=== PATIENT | female | born 1950 | race Hispanic/Latino ===

== ENCOUNTER 2018-08-15 16:29 | Inpatient (IN) | payer MEDICARE ==
[2018-08-15] MEDS ORDERED: ZEMURON IV ONE ×2 (17:19→17:20)
[2018-08-15] MEDS ORDERED: AMIDATE IV ONE ×2 (17:20)
[2018-08-15] MEDS ORDERED: NACL 0.9% 1000 ML 1,000 ML ONE ×2 (17:25→21:28)
[2018-08-15] MEDS ORDERED: NACL 0.9% 1000 ML IV ONE (18:12)
[2018-08-15 18:14] LABS: Hematocrit 30.9 % (30.3-42.9); Hemoglobin 10.3 gm/dl (10.1-14.3); Mean Corpuscular HGB Conc 33 % (30-34); Mean Corpuscular Volume 95 fl (79-97); Platelet Count 245 K/mm3 (140-440); Red Blood Count 3.25 M/mm3 (3.65-5.03); Red Cell Distribution Width 14.7 % (13.2-15.2)
--- NOTE | 2018-08-15 18:20 | Emergency Department Report ---
ED Altered Mental Status HPI - General Chief Complaint: Altered Mental Status Stated Complaint: ALTERED MENTAL STATUS Time Seen by Provider: 08/15/18 18:12 Source: EMS Mode of arrival: Stretcher Limitations: Altered Mental Status - History of Present Illness Initial Comments: Patient is 68 years old female with history of COPD, arthritis with multiple s urgeries including cervical spine and lumbar spine. Patient followed by pain medicine clinic. Patient brought to the emergency room via EMS after patient found to be with altered mental status and decreased responsiveness by her . Patient is not communicating so most of the history is from the . EMS stated that patient found to have an oxygen saturation of 72% and brought to the emergency room with a nonrebreather with an O2 sat of 91%. Patient is tachypneic with a respiratory rate of 48. Decision to intubate the patient was made. Patient intubated by me. Patient found to have a blood pressure of 87/41. The right internal jugular vein central line placed by me for fluid resuscitation. Patient stated that patient was complaining of nausea, vomiting and diarrhea for the last 5 days. Patient on multiple pain medications. Patient stated that patient had endoscopy and colonoscopy 7 days ago for possible GI bleed. He stated that she was told that her result was negative for acute finding. Patient stated that patient never complained of any chest pain or shortness of breath. MD Complaint: altered mental status, decreased responsiveness Severity: severe Consistency of Symptoms: getting worse - Related Data Allergies Allergy/AdvReac Type Severity Reaction Status Date / Time No Known Allergies Allergy Unverified 08/15/18 16:49 ED Review of Systems ROS: Stated complaint: ALTERED MENTAL STATUS Other details as noted in HPI Comment: Unobtainable due to pts medical conditions ED Past Medical Hx - Past Medical History Hx Hypertension: Yes Additional medical history: back and abd surgeries - Social History Smoking Status: Unknown if ever smoked ED Physical Exam - General Limitations: Altered Mental Status General appearance: obtunded, in distress, other (CV respiratory distress, tachypneic.) - Head Head exam: Present: atraumatic, normocephalic - Eye Eye exam: Present: normal appearance, PERRL - ENT ENT exam: Present: mucous membranes dry - Neck Neck exam: Present: normal inspection. Absent: tenderness, meningismus - Respiratory Respiratory exam: Present: respiratory distress, rales, rhonchi, decreased breath sounds, prolonged expiratory. Absent: stridor - Cardiovascular Cardiovascular Exam: Present: tachycardia - GI/Abdominal GI/Abdominal exam: Present: soft, normal bowel sounds. Absent: distended - Extremities Exam Extremities exam: Present: normal inspection, full ROM, normal capillary refill - Back Exam Back exam: Present: normal inspection - Neurological Exam Neurological exam: Present: altered - Skin Skin exam: Present: dry - Assessment Assessment Interval: Baseline - Level of Consciousness 1a. Level of Consciousness: resp stimuli/obtunded - LOC Questions 1b. LOC Questions: answers no questions correctly - LOC Command 1c. LOC Commands: performs no tasks correctly - Best Gaze 2. Best Gaze: normal - Visual 3. Visual: no visual loss - Facial Palsy 4. Facial Palsy: normal symmetrical movement - Motor Arm 5a. Motor Arm Left: no drift 5b. Motor Arm Right: no drift - Motor Leg 6a. Motor Leg Left: no drift 6b. Motor Leg Right: no drift - Limb Ataxia 7. Limb Ataxia: absent - Sensory 8. Sensory: no response/quadraplegic - Best Language 9. Best Language: coma/unresponsive - Dysarthria 10. Dysarthria: mute/anarrthric - Extinction and Inattention 11. Extinction/Inattention: no abnormality - Scoring Total Score: 13 Stroke Severity: Moderate Stroke ED Course Vital Signs 08/15/18 17:38 Pulse Rate 102 H Blood Pressure 134/62 O2 Sat by Pulse 98 Oximetry - Reevaluation(s) Reevaluation #1: 08/15/18 19:05 Patient evaluated by me multiple times. Patient is resting well on ventilation with stable vital signs. - Central Line Placement Right IJ Consent Obtained: emergent situation Time Out Performed: Yes Patient Placed on Monitor/Pulse Ox: Yes MD Prep: mask, gown, gloves Central Line Prep: Povidone-Iodine 1%, Chlorhexidine scrub, sterile drapes appli ed Local Anesthesia Used: Lidocaine 2% Ultrasound Used for Placement: Yes Central Line Lumen Inserted: triple Bloods Obtained for Lab: Yes Central Line Position: good blood return, sutured in place with 2-0 Dressing Applied: Tegaderm Post Procedure X-Ray: tip of catheter in good p Patient Tolerated Procedure: well, no complications Complications: none - Intubation Time Out Performed: Yes Sedative: Etomidate Paralytic: Vecuronium Laryngoscope: Ta Size: 4 ET Tube Size: 7.5 Tube Secured Location: teeth Tube Placement Confirmation: visualized tube passing t, equal breath sounds bilat, no breath sounds over epi, confirmation by capnometr Patient Tolerated Procedure: well, no complications Intubation Complications: none - Lab Data Result diagrams: 08/15/18 17:52 18 17:52 Lab Results 08/15/18 08/15/18 08/15/18 Range/Units 17:52 17:52 17:52 WBC 12.7 H (4.5-11.0) K/mm3 RBC 3.25 L (3.65-5.03) M/mm3 Hgb 10.3 (10.1-14.3) gm/dl Hct 30.9 (30.3-42.9) % MCV 95 (79-97) fl MCH 32 (28-32) pg MCHC 33 (30-34) % RDW 14.7 (13.2-15.2) % Plt Count 245 (140-440) K/mm3 Add Manual Diff Complete Total Counted 100 Seg Neuts % (Manual) 54.0 (40.0-70.0) % Band Neutrophils % 35.0 % Lymphocytes % (Manual) 6.0 L (13.4-35.0) % Reactive Lymphs % (Man) 0 % Monocytes % (Manual) 5.0 (0.0-7.3) % Eosinophils % (Manual) 0 (0.0-4.3) % Basophils % (Manual) 0 (0.0-1.8) % Metamyelocytes % 0 % Myelocytes % 0 % Promyelocytes % 0 % Blast Cells % 0 % Nucleated RBC % Not Reportable Seg Neutrophils # Man 6.9 (1.8-7.7) K/mm3 Band Neutrophils # 4.4 K/mm3 Lymphocytes # (Manual) 0.8 L (1.2-5.4) K/mm3 Abs React Lymphs (Man) 0.0 K/mm3 Monocytes # (Manual) 0.6 (0.0-0.8) K/mm3 Eosinophils # (Manual) 0.0 (0.0-0.4) K/mm3 Basophils # (Manual) 0.0 (0.0-0.1) K/mm3 Metamyelocytes # 0.0 K/mm3 Myelocytes # 0.0 K/mm3 Promyelocytes # 0.0 K/mm3 Blast Cells # 0.0 K/mm3 WBC Morphology Not Reportable Hypersegmented Neuts Not Reportable Hyposegmented Neuts Not Reportable Hypogranular Neuts Not Reportable Smudge Cells Not Reportable Toxic Granulation Not Reportable Toxic Vacuolation Not Reportable Dohle Bodies Not Reportable Pelger-Huet Anomaly Not Reportable Rosy Rods Not Reportable Platelet Estimate Appears normal Clumped Platelets Not Reportable Plt Clumps, EDTA Not Reportable Large Platelets Not Reportable Giant Platelets Not Reportable Platelet Satelliting Not Reportable Plt Morphology Comment Not Reportable RBC Morphology Not Reportable Dimorphic RBCs Not Reportable Polychromasia Not Reportable Hypochromasia Not Reportable Poikilocytosis Not Reportable Anisocytosis Not Reportable Microcytosis Not Reportable Macrocytosis Not Reportable Spherocytes Not Reportable Pappenheimer Bodies Not Reportable Sickle Cells Not Reportable Target Cells Not Reportable Tear Drop Cells Not Reportable Ovalocytes Few Helmet Cells Not Reportable Hernandez-Mayo Bodies Not Reportable Alton Rings Not Reportable Bertha Cells Not Reportable Bite Cells Not Reportable Crenated Cell Not Reportable Elliptocytes Not Reportable Acanthocytes (Spur) Not Reportable Rouleaux Not Reportable Hemoglobin C Crystals Not Reportable Schistocytes Not Reportable Malaria parasites Not Reportable Ceasar Bodies Not Reportable Hem Pathologist Commnt No POC ABG pH (7.35-7.45) POC ABG pCO2 (35-45) POC ABG pO2 (80-105) POC ABG HCO3 (22-26 mml/L) POC ABG Total CO2 (23-27mmol/L) POC ABG O2 Sat POC ABG Base Excess ((-2) - (+3)mmol/L) FiO2 % Sodium 137 (137-145) mmol/L Potassium 3.4 L (3.6-5.0) mmol/L Chloride 94.6 L (98-107) mmol/L Carbon Dioxide 17 L (22-30) mmol/L Anion Gap 29 mmol/L BUN 67 H (7-17) mg/dL Creatinine 3.5 H (0.7-1.2) mg/dL Estimated GFR 13 ml/min BUN/Creatinine Ratio 19 % Glucose 131 H (65-100) mg/dL Lactic Acid 5.20 H* (0.7-2.0) mmol/L Calcium 7.6 L (8.4-10.2) mg/dL Total Bilirubin 0.60 (0.1-1.2) mg/dL AST 887 H (5-40) units/L ALT 316 H (7-56) units/L Alkaline Phosphatase 102 (35-129) units/L Total Protein 6.4 (6.3-8.2) g/dL Albumin 3.1 L (3.9-5) g/dL Albumin/Globulin Ratio 0.9 % 08/15/18 Range/Units 18:11 WBC (4.5-11.0) K/mm3 RBC (3.65-5.03) M/mm3 Hgb (10.1-14.3) gm/dl Hct (30.3-42.9) % MCV (79-97) fl MCH (28-32) pg MCHC (30-34) % RDW (13.2-15.2) % Plt Count (140-440) K/mm3 Add Manual Diff Total Counted Seg Neuts % (Manual) (40.0-70.0) % Band Neutrophils % % Lymphocytes % (Manual) (13.4-35.0) % Reactive Lymphs % (Man) % Monocytes % (Manual) (0.0-7.3) % Eosinophils % (Manual) (0.0-4.3) % Basophils % (Manual) (0.0-1.8) % Metamyelocytes % % Myelocytes % % Promyelocytes % % Blast Cells % % Nucleated RBC % Seg Neutrophils # Man (1.8-7.7) K/mm3 Band Neutrophils # K/mm3 Lymphocytes # (Manual) (1.2-5.4) K/mm3 Abs React Lymphs (Man) K/mm3 Monocytes # (Manual) (0.0-0.8) K/mm3 Eosinophils # (Manual) (0.0-0.4) K/mm3 Basophils # (Manual) (0.0-0.1) K/mm3 Metamyelocytes # K/mm3 Myelocytes # K/mm3 Promyelocytes # K/mm3 Blast Cells # K/mm3 WBC Morphology Hypersegmented Neuts Hyposegmented Neuts Hypogranular Neuts Smudge Cells Toxic Granulation Toxic Vacuolation Dohle Bodies Pelger-Huet Anomaly Rosy Rods Platelet Estimate Clumped Platelets Plt Clumps, EDTA Large Platelets Giant Platelets Platelet Satelliting Plt Morphology Comment RBC Morphology Dimorphic RBCs Polychromasia Hypochromasia Poikilocytosis Anisocytosis Microcytosis Macrocytosis Spherocytes Pappenheimer Bodies Sickle Cells Target Cells Tear Drop Cells Ovalocytes Helmet Cells Hernandez-Mayo Bodies Alton Rings Bertha Cells Bite Cells Crenated Cell Elliptocytes Acanthocytes (Spur) Rouleaux Hemoglobin C Crystals Schistocytes Malaria parasites Ceasar Bodies Hem Pathologist Commnt POC ABG pH 7.173 L (7.35-7.45) POC ABG pCO2 47.8 H (35-45) POC ABG pO2 177 H (80-105) POC ABG HCO3 17.6 (22-26 mml/L) POC ABG Total CO2 19 (23-27mmol/L) POC ABG O2 Sat 99 POC ABG Base Excess -11 ((-2) - (+3)mmol/L) FiO2 100 % Sodium (137-145) mmol/L Potassium (3.6-5.0) mmol/L Chloride (98-107) mmol/L Carbon Dioxide (22-30) mmol/L Anion Gap mmol/L BUN (7-17) mg/dL Creatinine (0.7-1.2) mg/dL Estimated GFR ml/min BUN/Creatinine Ratio % Glucose (65-100) mg/dL Lactic Acid (0.7-2.0) mmol/L Calcium (8.4-10.2) mg/dL Total Bilirubin (0.1-1.2) mg/dL AST (5-40) units/L ALT (7-56) units/L Alkaline Phosphatase (35-129) units/L Total Protein (6.3-8.2) g/dL Albumin (3.9-5) g/dL Albumin/Globulin Ratio % - EKG Data -: EKG Interpreted by Me - Medical Decision Making Patient is 68 years old female with history of COPD, arthritis with multiple surgeries including cervical spine and lumbar spine. Patient followed by pain medicine clinic. Patient brought to the emergency room via EMS after patient found to be with altered mental status and decreased responsiveness by her . Patient is not communicating so most of the history is from the . EMS stated that patient found to have an oxygen saturation of 72% and brought to the emergency room with a nonrebreather with an O2 sat of 91%. Patient is tachypneic with a respiratory rate of 48. Decision to intubate the patient was made. Patient intubated by me. Patient found to have a blood pressure of 87/41. The right internal jugular vein central line placed by me for fluid resuscitation. Patient stated that patient was complaining of nausea, vomiting and diarrhea for the last 5 days. Patient on multiple pain m edications. Patient stated that patient had endoscopy and colonoscopy 7 days ago for possible GI bleed. He stated that she was told that her result was negative for acute finding. Patient stated that patient never complained of any chest pain or shortness of breath. Patient found to be in acute renal failure most likely due to dehydration from vomiting and diarrhea. He should also found to have an elevated liver enzymes. Chest x-ray showed possible bilateral infiltrates. I discussed the patient is Dr. Davis, he agreed to admit the patient to critical care units. Critical Care Time: Yes Critical care time in (mins) excluding proc time.: 45 Critical care attestation.: If time is entered above; I have spent that time in minutes in the direct care of this critically ill patient, excluding procedure time. ED Disposition Clinical Impression: Altered mental status, Sepsis, Acute renal failure, Elevated liver enzymes, Acute respiratory failure, Pneumonia Disposition: [id number] OP ADMIT IP TO THIS HOSP Is pt being admited?: Yes Condition: Stable Instructions: Bacterial Pneumonia (ED) Referrals: PRIMARY CARE, [Primary Care Provider] - 3-5 Days
[2018-08-15 18:26] LABS: Albumin 3.1 g/dL (3.9-5); Calcium 7.6 mg/dL (8.4-10.2)
[2018-08-15 19:09] LABS: Band Neutrophils # (Manual) 4.4 K/mm3; Basophils % (Manual) 0 % (0.0-1.8); Eosinophils % (Manual) 0 % (0.0-4.3); Ovalocytes Few; Total Cells Counted 100
[2018-08-15] MEDS ORDERED: ZOSYN/NS 3.375GM/50ML 3.375 GM/50 ML BAG IV ONE (19:30)
[2018-08-15 19:54] LABS: Chol/HDL Ratio 8.7 %
[2018-08-15 19:59] LABS: Amphetamine Screen,Urine PRESUMPTIVE NEGATIVE; Benzodiazepines Screen,Urine PRESUMPTIVE NEGATIVE; Cannabinoid Screen,Urine PRESUMPTIVE NEGATIVE; Cocaine Screen,Urine PRESUMPTIVE NEGATIVE; Methadone Screen,Urine PRESUMPTIVE NEGATIVE
[2018-08-15 20:00] LABS: Amorphous Crystals,Urine 1+; Bilirubin,Urine NEG (Negative); Blood,Urine MOD (Negative); Color,Urine Amber (Yellow); Granular Casts,Urine 14 /LPF; Hyaline Casts,Urine 54 /LPF; Mucus,Urine FEW /HPF
[2018-08-15 20:11] LABS: Opiate Screen,Urine PRESUMPTIVE POSITIVE
--- NOTE | 2018-08-15 20:25 | XRay Report ---
PROCEDURE: PORTABLE CHEST TECHNIQUE: A portable AP chest radiograph was obtained at 08/15/2018 23:04 [employer] AR[employer]IST. CPT 56977 HISTORY: Right IJ catheter placement COMPARISONS: None. FINDINGS: Heart: Normal. Mediastinum/Vessels: Normal. Lungs/Pleural space: Throughout the right lung there are diffuse reticular markings and patchy airsp omero opacities, which could be related to acute and/or chronic pulmonary disease. No effusion or pneum othorax is seen. Bony thorax: No acute osseous abnormality. Life support devices: The endotracheal tube tip projects 4.4 cm superior to amando. The IJ catheter t ip is at the cavoatrial junction. IMPRESSION: Right internal jugular catheter tip is at the cavoatrial junction. Endotracheal tube tip projects 4.4 cm superior to the amando Throughout the right lung there are diffuse reticular markings and patchy airspace opacities, of unce rtain chronicity. This document is electronically signed by Demi Miles MD., August 15 2018 08:23:17 PM ET
[2018-08-15] MEDS: DIPRIVAN 10 MG/ML 1,000 MG/100 ML BOTTLE IV SCH (21:20)
[2018-08-15] MEDS ORDERED: DIPRIVAN 10 MG/ML 1,000 MG/100 ML BOTTLE IV ONE (21:24)
[2018-08-15] MEDS ORDERED: VERSED IV PRN (21:55)
[2018-08-15] MEDS ORDERED: VASELINE LIP THERAPY TP PRN (21:55)
[2018-08-15] MEDS ORDERED: MIDAZOLAM 100 MG in NACL 0.9% 80 ML IV SCH (22:00)
[2018-08-15] MEDS ORDERED: SUBLIMAZE ONE (22:06)
[2018-08-15] MEDS ORDERED: VERSED IV ONE (22:06)
[2018-08-15] MEDS ORDERED: DILAUDID IV PRN (22:12)
[2018-08-15] MEDS ORDERED: REGLAN IV PRN ×2 (22:12→22:50)
--- NOTE | 2018-08-15 22:12 | Event Note ---
Date: 08/15/18 See dictated history and physical in the reports Severe dehydration Acute encephalopathy Acute kidney injury Intubated for airway protection
[2018-08-15] MEDS ORDERED: NON-FORMULARY (Carvedilol 6.25 MG) PO SCH (22:15)
[2018-08-15] MEDS: SUBLIMAZE IV PRN (22:42)
[2018-08-15] MEDS: COREG PO SCH (22:45)
[2018-08-15] MEDS ORDERED: PEPCID IV SCH (23:00)
[2018-08-15] MEDS ORDERED: D5NS 1,000 ML IV SCH (23:00)
[2018-08-15] MEDS ORDERED: fentaNYL DRIP Premix 2,000 MCG/100 ML BAG IV ONE (23:13)
--- NOTE | 2018-08-16 01:14 | Cat Scan Report ---
PROCEDURE: CT HEAD/BRAIN WO CON TECHNIQUE: Computerized tomography of the head was performed without contrast material. CT DOSE LENGTH ND HISTORY: AMS COMPARISONS: None . FINDINGS: Brain: There is no evidence of intracranial hemorrhage. No parenchymal hemorrhage is seen. No mass lesions or mass effect is identified. No abnormal extra-axial fluid collections or masses are seen. There is some decreased density seen in the periventricular white matter without mass effect. This i s fairly symmetric and does not exhibit any mass effect consistent with gliosis probably on the basis of microvascular disease or white matter changes of aging. Ventricles: The ventricles, sulcal pattern and fissures are prominent consistent with atrophy. Bone Windows: No evidence of fracture. Paranasal sinuses: There is a large air-fluid level in the right maxillary sinus suggesting acute sin usitis. Patchy mucosal disease seen in several of the ethmoid air cells. Mastoid air cells: Clear. Oral gastric tube partially visualized. IMPRESSION: There is evidence of mild atrophy. No acute intracranial abnormalities are seen. Paranasal sinus disease as described. Large air-fluid level in the right maxillary sinus suggests acu te sinusitis. Oral gastric tube partially visualized. . This document is electronically signed by Moy Begum MD., August 16 2018 01:12:02 AM ET
[2018-08-16] MEDS: PEPCID IV SCH ×2 (04:58→10:15)
[2018-08-16 05:50] LABS: Hematocrit 28.7 % (30.3-42.9); Hemoglobin 9.8 gm/dl (10.1-14.3); Mean Corpuscular HGB Conc 34 % (30-34); Mean Corpuscular Volume 94 fl (79-97); Platelet Count 209 K/mm3 (140-440); Red Blood Count 3.07 M/mm3 (3.65-5.03); Red Cell Distribution Width 14.8 % (13.2-15.2)
[2018-08-16 06:14] LABS: Albumin 2.8 g/dL (3.9-5); Calcium 7.8 mg/dL (8.4-10.2)
--- NOTE | 2018-08-16 06:52 | XRay Report ---
PROCEDURE: XR CHEST 1V AP TECHNIQUE: A portable upright view the chest was obtained. HISTORY: OG tube COMPARISONS: 08/15/2018 FINDINGS: There has been interval placement of an NG tube with the tip in the mid stomach. The right-sided inte rnal jugular line appears in good position in the SVC. The tip of the ET tube is 4 cm above the madhuri a. The heart is mildly enlarged. There is stable diffuse of traits throughout the right lung. The left l sloedad is clear. The bones and soft tissues are unchanged. IMPRESSION: Satisfactory placement of NG tube since the prior study. Stable extensive infiltrates throughout the right lung compatible with pneumonia. Satisfactory position of the ET tube and right internal jugular line.. This document is electronically signed by Yannick Rodriguez MD., August 16 2018 06:50:31 AM ET
[2018-08-16] MEDS ORDERED: VANCOMYCIN 1,500 MG in NACL 0.9% 500 ML 500 ML IV ONE (07:00)
[2018-08-16] MEDS ORDERED: VANCOMYCIN PHARMACY TO DOSE IV SCH (07:00)
--- NOTE | 2018-08-16 07:16 | History and Physical Report ---
CHIEF COMPLAINT: Altered mental status and lethargy when the family arrived at home. HISTORY OF PRESENT ILLNESS: A 68-year-old female with history of COPD, arthritis, and C-spine surgery and lumbar spine surgery with severe chronic pain, was found to be in feces. The patient was apparently vomiting and having diarrhea. The family was away in [place] for a golf tournament. EMS was called and the O2 sats were about 72% and the patient was put on a nonrebreather. Respiratory rate was 48. Because of the severe respiratory distress, the patient was intubated in the Emergency Room by the ER physician. Blood pressure was 87/42. Central line was placed. The patient was intubated. The patient has been having nausea, vomiting, and diarrhea for 5 days. The patient on multiple pain medications including morphine 60 and oxycodone. The patient apparently had upper endoscopy and colonoscopy 7 days ago for possible GI bleed. There are no acute findings. PAST MEDICAL HISTORY: As mentioned, significant for peripheral neuropathy, chronic pain, hyperlipidemia, hypertension, and depression. Muscle spasms. PAST SURGICAL HISTORY: C-spine surgery and lumbar spine surgery. FAMILY HISTORY: Hypertension. SOCIAL HISTORY: Does not smoke or alcohol. REVIEW OF SYSTEMS: Significant for vomiting and diarrhea for 5 days, decreased responsiveness. Respiratory distress. No fever or chills. No recent travel. Otherwise, the review of systems negative. The patient with decreased responsiveness. 14-point review of systems done. PHYSICAL EXAMINATION: GENERAL: Elderly female, intubated. VITAL SIGNS: Blood pressure is 126/43, temperature is 98, pulse is 102. Repeat blood pressure was 134/62. Respiratory rate was 18. HEENT: The patient's ET tube in place. Pupils equal and reactive. Unresponsive. The patient on sedation. NECK: Supple, no lymphadenopathy, no thyromegaly. LUNGS: Clear to auscultation and percussion. Good air entry. CARDIOVASCULAR SYSTEM: S1, S2 heard. No gallop, no murmur, no rub. Apical impulse in left fifth intercostal space in midclavicular line. ABDOMEN: Soft and benign. No hepatosplenomegaly. No guarding, no rigidity. Hernial orifices are normal. EXTREMITIES: Good pedal pulses. No pedal edema. CENTRAL NERVOUS SYSTEM: Alert and oriented x 4, nonfocal exam. SKIN: Normal. LABORATORY DATA: Significant for white count of 12,700, H and H of 10.3 and 30.9, platelet count of 245,000. ABG significant for pH of 7.17, pCO2 of 47.8, pO2 of 177. Sodium is 137. Potassium is 3.4. Chloride is 94.6. BUN and creatinine 67 and 3.5. Lactic acid is 2.7. AST is 887. ALT is 316. Troponin is 0.454. Albumin is 3.1. Triglyceride 356. Urine shows 17 WBCs. Drug screen was negative. DIAGNOSTIC DATA: Head CT and chest x-ray were reviewed. A chest x-ray shows a diffuse reticular markings and patchy airspace opacities of uncertain chronicity on the right lung. Central line and endotracheal tube in place. Head CT was in mild atrophy, no acute intracranial abnormalities. ASSESSMENT AND PLAN: 1. Acute respiratory failure with hypoxia. The patient intubated. Continue vent management. 2. Pneumonia. The chest x-ray shows multiple airspace opacities on the right side. Cannot confirm whether acute or chronic. The patient is started on empiric antibiotics. 3. Acute gastroenteritis. IV fluids for now. IV Zofran. 4. Acute kidney injury. The patient will be started on IV fluids. Her baseline creatinine is probably normal. No prior admissions. No previous baseline creatinine available. Given the circumstances of nausea, vomiting, and diarrhea, I expect acute kidney injury secondary to prerenal failure. 5. Elevated troponin. Will get serial troponins. Elevated lactic acid, possible sepsis versus systemic inflammatory response syndrome. The patient on antibiotics and IV fluids. The patient also hypotensive. 6. Septic shock, IV fluids and IV antibiotics for now. Lactic acid is elevated. 7. Chronic pain. Will continue the patient on Dilaudid 0.5, will hold her home pain medications. 8. Deep venous thrombosis prophylaxis, Lovenox 30 mg subcutaneous daily and gastrointestinal prophylaxis. CRITICAL CARE STATEMENT: The high probability of a clinically significant sudden or life-threatening deterioration of the pulmonary, cardiac and renal systems required my full and direct attention, intervention, and personal management. The aggregate critical care time was 40 minutes. This time is in addition to time spent performing reported procedures, but includes the followin. Data review and interpretation. 2. The patient assessment and monitoring of vital signs. 3. Documentation. 4. Medication orders and management. JOB# [id number] GENE/MARIBELL
--- NOTE | 2018-08-16 08:46 | Consultation ---
History of Present Illness Consult date: 08/16/18 Requesting physician: LAWRENCE RUTHERFORD Reason for consult: COPD, other (acute hypoxemic respiraotry failure, acute encephaloapthy) History of present illness: PER ED PHYSICIAN DOCUMENTATION Patient is 68 years old female with history of COPD, arthritis with multiple surgeries including cervical spine and lumbar spine. Patient followed by pain medicine clinic. Patient brought to the emergency room via EMS after patient found to be with altered mental status and decreased responsiveness by her . Patient is not communicating so most of the history is from the . EMS stated that patient found to have an oxygen saturation of 72% and brought to the emergency room with a non rebreather with an O2 sat of 91%. Patient is tachypneic with a respiratory rate of 48. Decision to intubate the patient was made. Patient intubated by me. Patient found to have a blood pressure of 87/41. The right internal jugular vein central line placed by me for fluid resuscitation. Patient stated that patient was complaining of nausea, vomiting and diarrhea for the last 5 days. Patient on multiple pain medications. Patient stated that patient had endoscopy and colonoscopy 7 days ago for possible GI bleed. He stated that she was told that her result was negative for acute finding. Patient stated that patient never complained of any chest pain or shortness of breath. I was consulted for critical care and ventilator management. History as documeted by ER physician At the time I saw her in the ER, she was orally intubated, sedated on fentanyl and midazolam. Apparently she had an episode of hypotension with propofol. No family at the bedside. Patient was seen and examined. Vitals, labs, medications, chart and imaging were reviewed. Past History Past Medical History: COPD Past Surgical History: Other (Neck and back surgery) Social history: , lives with family, full code Family history: other (unable to obtain, no family at bedside) Medications and Allergies Allergies Allergy/AdvReac Type Severity Reaction Status Date / Time No Known Allergies Allergy Unverified 08/15/18 16:49 Home Medications Medication Instructions Recorded Confirmed Last Taken Type Carvedilol 6.25 mg PO BID 08/15/18 08/15/18 Unknown History DULoxetine 60 mg PO QDAY 08/15/18 08/15/18 Unknown History Gabapentin 600 mg PO Q6HR PRN 08/15/18 08/15/18 Unknown History Methylphenidate 5 mg PO TID 08/15/18 08/15/18 Unknown History Morphabond ER 60 mg PO Q12HR 08/15/18 08/15/18 Unknown History Pravastatin Sodium 10 mg PO QDAY 08/15/18 08/15/18 Unknown History Tizanidine HCl 4 mg PO Q12HR 08/15/18 08/15/18 Unknown History oxyCODONE /ACETAMINOPHEN 7.5 - 325 mg PO Q8HR 08/15/18 08/15/18 Unknown History Active Meds: Active Medications Acetaminophen (Tylenol) 650 mg PO Q4H PRN PRN Reason: Pain MILD(1-3)/Fever >100.5/MONDRAGON Carvedilol (Coreg) 6.25 mg PO BID [facility] Last Admin: 08/15/18 22:45 Dose: Not Given Documented by: Duloxetine HCl (Cymbalta) 60 mg PO QDAY [facility] Enoxaparin Sodium (Lovenox) 30 mg SUB-Q QDAY@2200 [facility] Famotidine (Pepcid) 10 mg IV BID [facility] Last Admin: 08/16/18 04:58 Dose: Not Given Documented by: Fentanyl (Sublimaze) 50 mcg IV Q10MIN PRN PRN Reason: ANALGESIA Last Admin: 08/15/18 22:42 Dose: 50 mcg Documented by: Hydromorphone HCl (Dilaudid) 0.5 mg IV Q3H PRN PRN Reason: Pain , Severe (7-10) Hydrophilic Ointment (Vaseline Lip Therapy) 1 applic TP Q2HR PRN PRN Reason: Dry Lips Fentanyl Citrate (Fentanyl Drip Premix) 2,000 mcg in 100 mls @ 4.082 mls/hr IV TITR [facility]; Protocol Midazolam HCl 100 mg/ Sodium (Chloride) 100 mls @ 2 mls/hr IV TITR [facility]; Protocol Last Titration: 08/16/18 06:45 Dose: 2 mg/hr, 2 mls/hr Documented by: Dextrose/Sodium Chloride (D5ns) 1,000 mls @ 100 mls/hr IV DIRECT [facility] Ceftriaxone Sodium (Rocephin/Ns 1 Gm/50 Ml) 1 gm in 50 mls @ 100 mls/hr IV Q24HR [facility]; Protocol Propofol (Diprivan 10 Mg/Ml) 1,000 mg in 100 mls @ 2.449 mls/hr IV TITR [facility]; Protocol Last Titration: 08/15/18 22:20 Dose: 0 mcg/kg/min, 0 mls/hr Documented by: Azithromycin 500 mg/ Sodium (Chloride) 250 mls @ 250 mls/hr IV Q24HR [facility] Metoclopramide HCl (Reglan) 5 mg IV Q6H PRN PRN Reason: Nausea And Vomiting Midazolam HCl (Versed) 2 mg IV Q10MIN PRN PRN Reason: Sedation Last Admin: 08/15/18 22:42 Dose: 2 mg Documented by: Ondansetron HCl (Zofran) 4 mg IV Q8H PRN PRN Reason: Nausea And Vomiting Sodium Chloride (Sodium Chloride Flush Syringe 10 Ml) 10 ml IV BID [facility] Sodium Chloride (Sodium Chloride Flush Syringe 10 Ml) 10 ml IV PRN PRN PRN Reason: LINE FLUSH Review of Systems ROS unobtainable: due to endotracheal tube, due to mental status Physical Examination Vital signs: Vital Signs Pulse Resp BP Pulse Ox 102 H 18 142/64 99 08/15/18 17:33 08/15/18 17:33 08/15/18 17:33 08/15/18 17:33 General appearance: appears uncomfortable, other (ETT at 23cm to MVS, patietn tacypneic but no dyssynchrony) Eyes: non-icteric ENT: oropharynx moist Neck: supple, no lymphadenopathy, other (Right IJ CVC) Effort: mildly labored Ascultation: Bilateral: diminished breath sounds, rhonchi (right lung field) Cardiovascular: regular rate and rhythm, other (S1,S2, no murmurs, gallops or rubs) Gastrointestinal: normoactive bowel sounds, soft, non-tender, non-distended Integumentary: normal Extremities: no cyanosis, no edema, pink and warm, pulses normal, no ischemia or petechiae pupils equal and round, unable to assess other (sedated) Results - Laboratory Findings CBC and BMP: 08/16/18 05:38 08/18/18 04:10 ABG POC ABG pH 7.323 (7.35-7.45) L 08/16/18 01:41 POC ABG pCO2 34.7 (35-45) L 08/16/18 01:41 POC ABG pO2 78 (80-105) L 08/16/18 01:41 POC ABG HCO3 18.0 (22-26 mml/L) 08/16/18 01:41 POC ABG Total CO2 19 (23-27mmol/L) 08/16/18 01:41 POC ABG O2 Sat 95 08/16/18 01:41 PT/INR, D-dimer D-Dimer 2768.33 ng/mlDDU (0-234) H 08/15/18 18:31 Abnormal lab findings: Abnormal Labs 08/15/18 08/15/18 08/15/18 17:52 17:52 17:52 WBC 12.7 H RBC 3.25 L Hgb Hct Lymphocytes % (Manual) 6.0 L Lymphocytes # (Manual) 0.8 L D-Dimer POC ABG pH POC ABG pCO2 POC ABG pO2 VBG pH Potassium 3.4 L Chloride 94.6 L Carbon Dioxide 17 L BUN 67 H Creatinine 3.5 H Glucose 131 H Hemoglobin A1c Lactic Acid 5.20 H* Calcium 7.6 L AST 887 H ALT 316 H Troponin T Total Protein Albumin 3.1 L Triglycerides LDL Cholesterol Direct HDL Cholesterol Urine WBC (Auto) Salicylates Acetaminophen 08/15/18 08/15/18 08/15/18 18:11 18:19 18:31 WBC RBC Hgb Hct Lymphocytes % (Manual) Lymphocytes # (Manual) D-Dimer 2768.33 H POC ABG pH 7.173 L POC ABG pCO2 47.8 H POC ABG pO2 177 H VBG pH 7.187 L* Potassium Chloride Carbon Dioxide BUN Creatinine Glucose Hemoglobin A1c Lactic Acid Calcium AST ALT Troponin T Total Protein Albumin Triglycerides LDL Cholesterol Direct HDL Cholesterol Urine WBC (Auto) Salicylates Acetaminophen 08/15/18 08/15/18 08/15/18 18:31 19:14 19:14 WBC RBC Hgb Hct Lymphocytes % (Manual) Lymphocytes # (Manual) D-Dimer POC ABG pH POC ABG pCO2 POC ABG pO2 VBG pH Potassium Chloride Carbon Dioxide BUN Creatinine Glucose Hemoglobin A1c Lactic Acid 2.70 H* Calcium AST ALT Troponin T 0.454 H* Total Protein Albumin Triglycerides 356 H LDL Cholesterol Direct 4 L HDL Cholesterol 10 L Urine WBC (Auto) Salicylates < 0.3 L Acetaminophen 08/15/18 08/15/18 08/15/18 19:14 19:15 23:09 WBC RBC Hgb Hct Lymphocytes % (Manual) Lymphocytes # (Manual) D-Dimer POC ABG pH POC ABG pCO2 POC ABG pO2 VBG pH Potassium Chloride Carbon Dioxide BUN Creatinine Glucose Hemoglobin A1c Lactic Acid 3.20 H* Calcium AST ALT Troponin T Total Protein Albumin Triglycerides LDL Cholesterol Direct HDL Cholesterol Urine WBC (Auto) 17.0 H Salicylates Acetaminophen < 5.0 L 08/15/18 08/16/18 08/16/18 23:09 01:41 05:38 WBC RBC 3.07 L Hgb 9.8 L Hct 28.7 L Lymphocytes % (Manual) Lymphocytes # (Manual) D-Dimer POC ABG pH 7.323 L POC ABG pCO2 34.7 L POC ABG pO2 78 L VBG pH Potassium Chloride Carbon Dioxide BUN Creatinine Glucose Hemoglobin A1c 6.4 H Lactic Acid Calcium AST ALT Troponin T Total Protein Albumin Triglycerides LDL Cholesterol Direct HDL Cholesterol Urine WBC (Auto) Salicylates Acetaminophen 08/16/18 05:38 WBC RBC Hgb Hct Lymphocytes % (Manual) Lymphocytes # (Manual) D-Dimer POC ABG pH POC ABG pCO2 POC ABG pO2 VBG pH Potassium 2.9 L* Chloride Carbon Dioxide 17 L BUN 62 H Creatinine 2.0 H Glucose Hemoglobin A1c Lactic Acid Calcium 7.8 L AST 619 H ALT 353 H Troponin T Total Protein 6.1 L Albumin 2.8 L Triglycerides LDL Cholesterol Direct HDL Cholesterol Urine WBC (Auto) Salicylates Acetaminophen - Diagnostic Findings Chest x-ray: image reviewed (Right lung predominant interstitial infiltrates) Assessment and Plan Assessment and Plan Acute hypoxic-hypercapnic respiratory failure on MVS h/o COPD Acute encephalopathy( toxic-metabolic) Hypokalemia Acute kidney injury h/o Chronic narcotic dependence Aspiration pneumonia/CAP Hypokalemia -Continue full MVS -Wean supplemental oxygen to keep O2 sats 88-90% -Lung protective strategies -Oxygen restrictive strategies -Daily ABGs/CXR -Antibiotics for CAP -Follow tracheal aspirate cultures and adjust antibiotic therapy based on MURTAZA/ID -Get procalcitonin to help guide antibiotic therapy. -VAP bundle addressed -Volume resuscitation. Monitor renal inidces -Daily SAT's & SBT's -Sedation target for RASS 0 to -1 -Stress ulcer prophylaxis -VTE prophylaxis -Nutrition consult for tube feedings -Aspiration precautions -Accuchecks with glycemic control. Target glucose of 140-180 mg/dL -Continue bronchodilators with pulmonary hygiene per RT -Maintenance of sleep -wake cycle -Mobility as tolerated by hemodynamics -Follow up lactic acid levels -Influenza and pneumonia vaccination per protocol ..care plan discussed at length with RN/RTat the bedside PROGNOSIS FAIR CONDITION: CRITICAL CODE STATUS: FULL CODE The high probability of a clinically significant, sudden or life-threatening deterioration of the [respiratory, neurology, renal] system(s) required my full and direct attention, intervention and personal management. The aggregate critical care time was [65] minutes without overlap. Time includes spent on; [x] Data Review and interpretation [x] Patient assessment and monitoring of vital signs [x] Documentation [x] Medication orders and management
[2018-08-16 08:47] LABS: Band Neutrophils # (Manual) 0.5 K/mm3; Eosinophils % (Manual) 0 % (0.0-4.3); Giant Platelets Rare; Platelet Clumps Rare; Platelet Estimate Consistent w Auto; RBC Morphology Normal; Total Cells Counted 100
--- NOTE | 2018-08-16 08:47 | Consultation ---
History of Present Illness - Reason for Consult Consult date: 08/16/18 acute renal failure, hypokalemia - History of Present Illness The patient is 68 Yo female with history significant for HTN, HLD, COPD, Arthritis s/p multiple surgeries including cervical spine and lumbar spine whow was brought to the emergency room via EMS after patient found to be less responsive by her . Patient was not able to provide any history and there was no family member at the bedside. EMS found her to have an oxygen saturation of 72% and brought to the emergency room with a nonrebreather with an O2 sat of 91%. Patient was intubated in the ER. Her blood pressure was low initially. Patient had nausea, vomiting and diarrhea for the past 5 days. Labs were significant for creatinine 3.5, K 3.4 and Lactic acidosis. Creatinine level has improved to 2 today. Past History Past Medical History: arthritis, COPD, hypertension, hyperlipidemia Medications and Allergies Allergies Allergy/AdvReac Type Severity Reaction Status Date / Time No Known Allergies Allergy Unverified 08/15/18 16:49 Home Medications Medication Instructions Recorded Confirmed Last Taken Type Carvedilol 6.25 mg PO BID 08/15/18 08/15/18 Unknown History DULoxetine 60 mg PO QDAY 08/15/18 08/15/18 Unknown History Gabapentin 600 mg PO Q6HR PRN 08/15/18 08/15/18 Unknown History Methylphenidate 5 mg PO TID 08/15/18 08/15/18 Unknown History Morphabond ER 60 mg PO Q12HR 08/15/18 08/15/18 Unknown History Pravastatin Sodium 10 mg PO QDAY 08/15/18 08/15/18 Unknown History Tizanidine HCl 4 mg PO Q12HR 08/15/18 08/15/18 Unknown History oxyCODONE /ACETAMINOPHEN 7.5 - 325 mg PO Q8HR 08/15/18 08/15/18 Unknown History Active Meds: Active Medications Acetaminophen (Tylenol) 650 mg PO Q4H PRN PRN Reason: Pain MILD(1-3)/Fever >100.5/[place] Carvedilol (Coreg) 6.25 mg PO BID [facility] Last Admin: 08/15/18 22:45 Dose: Not Given Documented by: Duloxetine HCl (Cymbalta) 60 mg PO QDAY [facility] Enoxaparin Sodium (Lovenox) 30 mg SUB-Q QDAY@2200 [facility] Famotidine (Pepcid) 10 mg IV BID [facility] Last Admin: 08/16/18 04:58 Dose: Not Given Documented by: Fentanyl (Sublimaze) 50 mcg IV Q10MIN PRN PRN Reason: ANALGESIA Last Admin: 08/15/18 22:42 Dose: 50 mcg Documented by: Hydromorphone HCl (Dilaudid) 0.5 mg IV Q3H PRN PRN Reason: Pain , Severe (7-10) Hydrophilic Ointment (Vaseline Lip Therapy) 1 applic TP Q2HR PRN PRN Reason: Dry Lips Fentanyl Citrate (Fentanyl Drip Premix) 2,000 mcg in 100 mls @ 4.082 mls/hr IV TITR [facility]; Protocol Midazolam HCl 100 mg/ Sodium (Chloride) 100 mls @ 2 mls/hr IV TITR [facility]; Protocol Last Titration: 08/16/18 06:45 Dose: 2 mg/hr, 2 mls/hr Documented by: Dextrose/Sodium Chloride (D5ns) 1,000 mls @ 100 mls/hr IV DIRECT [facility] Ceftriaxone Sodium (Rocephin/Ns 1 Gm/50 Ml) 1 gm in 50 mls @ 100 mls/hr IV Q24HR [facility]; Protocol Propofol (Diprivan 10 Mg/Ml) 1,000 mg in 100 mls @ 2.449 mls/hr IV TITR [facility]; Protocol Last Titration: 08/15/18 22:20 Dose: 0 mcg/kg/min, 0 mls/hr Documented by: Azithromycin 500 mg/ Sodium (Chloride) 250 mls @ 250 mls/hr IV Q24HR [facility] Metoclopramide HCl (Reglan) 5 mg IV Q6H PRN PRN Reason: Nausea And Vomiting Midazolam HCl (Versed) 2 mg IV Q10MIN PRN PRN Reason: Sedation Last Admin: 08/15/18 22:42 Dose: 2 mg Documented by: Ondansetron HCl (Zofran) 4 mg IV Q8H PRN PRN Reason: Nausea And Vomiting Sodium Chloride (Sodium Chloride Flush Syringe 10 Ml) 10 ml IV BID [facility] Sodium Chloride (Sodium Chloride Flush Syringe 10 Ml) 10 ml IV PRN PRN PRN Reason: LINE FLUSH Review of Systems ROS unobtainable: due to mental status Exam - Vital Signs Vital signs: Vital Signs Pulse Resp BP Pulse Ox 102 H 18 142/64 99 08/15/18 17:33 08/15/18 17:33 08/15/18 17:33 08/15/18 17:33 - General Appearance General appearance: well-developed, well-nourished, appears stated age, intubated, other (on vent) EENT: ATNC, PERRL Neck: Present: neck supple, trachea midline Respiratory: Clear to Ascultation Heart: regular, S1S2, no murmurs Gastrointestinal: Present: normoactive bowel sounds. Absent: tenderness, d istended Integumentary: no rash, warm and dry Neurologic: other (not responding) Musculoskeletal: Present: other (no edema) Results - Lab Results 08/16/18 05:38 08/16/18 05:38 Most recent lab results Calcium 7.8 mg/dL (8.4-10.2) L 08/16/18 05:38 - Image Kidney/bladder ultrasound: other Assessment and Plan 1. Acute kidney injury: Likely hemodynamic CHANDANA in the setting of volume depletion. Renal function is improving. Continue IV fluids. Monitor renal function. Avoid nephrotoxic agents. Meds dosage based on GFR. 2. FEN: Hypokalemia, replete K. Volume depletion, continue IV fluids. Metabolic acidosis. 3. Acute encephalopathy. 4. Respiratory failure: On vent. 5. Right lung pneumonia. 6. Shock Liver.
[2018-08-16] MEDS ORDERED: DULOXETINE 60 MG PO SCH (10:00)
[2018-08-16] MEDS: SODIUM CHLORIDE FLUSH SYRINGE 10 ML IV SCH (10:14)
[2018-08-16] MEDS ORDERED: PEPCID IV ONE (10:23)
[2018-08-16] MEDS ORDERED: KCL 10MEQ/100ML 10 MEQ/100 ML BAG IV ONE ×4 (10:23→14:14)
[2018-08-16] MEDS: KCL 10MEQ/100ML 10 MEQ/100 ML BAG IV SCH ×4 (10:34→14:20)
[2018-08-16] MEDS: CYMBALTA PO SCH (10:37)
[2018-08-16] MEDS: COREG PO SCH (10:37)
[2018-08-16] MEDS: ZITHROMAX 500 MG in NACL 0.9% 250ML 250 ML IV SCH (11:43)
[2018-08-16] MEDS ORDERED: ROCEPHIN/NS 1 GM/50 ML 1 GM/50 ML BAG IV ONE (13:11)
[2018-08-16] MEDS: ROCEPHIN/NS 1 GM/50 ML 1 GM/50 ML BAG IV SCH (13:12)
--- NOTE | 2018-08-16 14:49 | Progress Note ---
Assessment and Plan Acute hypoxic-hypercapnic respiratory failure on MVS h/o COPD Acute encephalopathy( toxic-metabolic) Hypokalemia Acute kidney injury h/o Chronic narcotic dependence Aspiration pneumonia/CAP Hypokalemia -Continue full MVS -Wean supplemental oxygen to keep O2 sats 88-90% -Lung protective strategies -Oxygen restrictive strategies -Daily ABGs/CXR -Antibiotics for CAP -Follow tracheal aspirate cultures and adjust antibiotic therapy based on MURTAZA/ID -Get procalcitonin to help guide antibiotic therapy. -VAP bundle addressed -Volume resuscitation. Monitor renal inidces -Daily SAT's & SBT's -Sedation target for RASS 0 to -1 -Stress ulcer prophylaxis -VTE prophylaxis -Nutrition consult for tube feedings -Aspiration precautions -Accuchecks with glycemic control. Target glucose of 140-180 mg/dL -Continue bronchodilators with pulmonary hygiene per RT -Maintenance of sleep -wake cycle -Mobility as tolerated by hemodynamics -Follow up lactic acid levels -Influenza and pneumonia vaccination per protocol Subjective Date of service: 08/16/18 Principal diagnosis: Sepsis/Resp failure Interval history: Same condition Objective - Constitutional Vitals: Vital Signs - 12hr 08/16/18 08/16/18 08/16/18 03:00 03:15 03:30 Pulse Rate 76 76 76 Respiratory 25 H 26 H 24 Rate Blood Pressure 119/53 123/52 129/52 Blood Pressure [Right] O2 Sat by Pulse 96 98 97 Oximetry 08/16/18 08/16/18 08/16/18 03:45 04:00 04:15 Pulse Rate 79 80 80 Respiratory 23 25 H 24 Rate Blood Pressure 137/55 138/54 124/53 Blood Pressure [Right] O2 Sat by Pulse 96 98 97 Oximetry 08/16/18 08/16/18 08/16/18 04:30 04:34 04:45 Pulse Rate 79 82 81 Respiratory 26 H 25 H Rate Blood Pressure 126/43 126/43 117/46 Blood Pressure [Right] O2 Sat by Pulse 97 96 96 Oximetry 08/16/18 08/16/18 08/16/18 05:00 05:15 05:30 Pulse Rate 86 83 81 Respiratory 25 H 27 H 26 H Rate Blood Pressure 117/47 111/45 116/45 Blood Pressure [Right] O2 Sat by Pulse 96 95 96 Oximetry 08/16/18 08/16/18 08/16/18 05:45 06:00 06:15 Pulse Rate 79 82 80 Respiratory 27 H 30 H 30 H Rate Blood Pressure 116/49 105/41 108/43 Blood Pressure [Right] O2 Sat by Pulse 95 92 92 Oximetry 08/16/18 08/16/18 08/16/18 06:30 06:45 07:00 Pulse Rate 82 83 84 Respiratory 31 H 32 H 29 H Rate Blood Pressure 112/43 103/36 108/38 Blood Pressure [Right] O2 Sat by Pulse 94 95 96 Oximetry 08/16/18 08/16/18 08/16/18 07:30 07:45 08:00 Pulse Rate 81 86 84 Respiratory 30 H 28 H 31 H Rate Blood Pressure 100/37 94/35 98/37 Blood Pressure [Right] O2 Sat by Pulse 95 94 93 Oximetry 08/16/18 08/16/18 08/16/18 08:30 09:00 09:15 Pulse Rate 86 86 87 Respiratory 32 H 33 H 31 H Rate Blood Pressure 115/41 101/39 101/39 Blood Pressure [Right] O2 Sat by Pulse 95 94 94 Oximetry 08/16/18 08/16/18 08/16/18 09:30 10:00 11:05 Pulse Rate 86 87 Respiratory 30 H 30 H 30 H Rate Blood Pressure 104/37 123/46 Blood Pressure [Right] O2 Sat by Pulse 94 94 94 Oximetry 08/16/18 08/16/18 11:09 11:47 Pulse Rate 86 83 Respiratory 29 H Rate Blood Pressure 115/42 Blood Pressure 120/45 [Right] O2 Sat by Pulse 96 96 Oximetry General appearance: Present: no acute distress, well-nourished - EENT Eyes: PERRL, EOM intact ENT: hearing intact, clear oral mucosa Ears: bilateral: normal - Neck Neck: supple, normal ROM - Respiratory Respiratory effort: normal Respiratory: bilateral: CTA - Breasts Breasts: normal - Cardiovascular Rhythm: regular Heart Sounds: Present: S1 & S2. Absent: gallop, rub Extremities: pulses intact, No edema, normal color, Full ROM - Gastrointestinal General gastrointestinal: Present: soft, non-tender, non-distended, normal bowel sounds - Genitourinary Female genitourinary: normal - Integumentary Integumentary: clear, warm, dry - Musculoskeletal Musculoskeletal: 1, strength equal bilaterally - Neurologic Neurologic: moves all extremities - Psychiatric Psychiatric: memory intact, appropriate mood/affect, intact judgment & insight - Labs CBC & Chem 7: 08/16/18 05:38 08/19/18 04:15 Labs: Abnormal lab results 08/15/18 08/15/18 08/15/18 Range/Units 17:52 17:52 17:52 WBC 12.7 H (4.5-11.0) K/mm3 RBC 3.25 L (3.65-5.03) M/mm3 Hgb (10.1-14.3) gm/dl Hct (30.3-42.9) % Seg Neuts % (Manual) (40.0-70.0) % Lymphocytes % (Manual) 6.0 L (13.4-35.0) % Nucleated RBC % (0.0-0.9) % Lymphocytes # (Manual) 0.8 L (1.2-5.4) K/mm3 D-Dimer (0-234) ng/mlDDU POC ABG pH (7.35-7.45) POC ABG pCO2 (35-45) POC ABG pO2 (80-105) VBG pH (7.320-7.420) Potassium 3.4 L (3.6-5.0) mmol/L Chloride 94.6 L (98-107) mmol/L Carbon Dioxide 17 L (22-30) mmol/L BUN 67 H (7-17) mg/dL Creatinine 3.5 H (0.7-1.2) mg/dL Glucose 131 H (65-100) mg/dL Hemoglobin A1c (4-6) % Lactic Acid 5.20 H* (0.7-2.0) mmol/L Calcium 7.6 L (8.4-10.2) mg/dL AST 887 H (5-40) units/L ALT 316 H (7-56) units/L Troponin T (0.00-0.029) ng/mL Total Protein (6.3-8.2) g/dL Albumin 3.1 L (3.9-5) g/dL Triglycerides (2-149) mg/dL LDL Cholesterol Direct (50-130) mg/dL HDL Cholesterol (40-59) mg/dL Urine WBC (Auto) (0.0-6.0) /HPF Salicylates (2.8-20.0) mg/dL Acetaminophen (10.0-30.0) ug/mL 08/15/18 08/15/18 08/15/18 Range/Units 18:11 18:19 18:31 WBC (4.5-11.0) K/mm3 RBC (3.65-5.03) M/mm3 Hgb (10.1-14.3) gm/dl Hct (30.3-42.9) % Seg Neuts % (Manual) (40.0-70.0) % Lymphocytes % (Manual) (13.4-35.0) % Nucleated RBC % (0.0-0.9) % Lymphocytes # (Manual) (1.2-5.4) K/mm3 D-Dimer 2768.33 H (0-234) ng/mlDDU POC ABG pH 7.173 L (7.35-7.45) POC ABG pCO2 47.8 H (35-45) POC ABG pO2 177 H (80-105) VBG pH 7.187 L* (7.320-7.420) Potassium (3.6-5.0) mmol/L Chloride (98-107) mmol/L Carbon Dioxide (22-30) mmol/L BUN (7-17) mg/dL Creatinine (0.7-1.2) mg/dL Glucose (65-100) mg/dL Hemoglobin A1c (4-6) % Lactic Acid (0.7-2.0) mmol/L Calcium (8.4-10.2) mg/dL AST (5-40) units/L ALT (7-56) units/L Troponin T (0.00-0.029) ng/mL Total Protein (6.3-8.2) g/dL Albumin (3.9-5) g/dL Triglycerides (2-149) mg/dL LDL Cholesterol Direct (50-130) mg/dL HDL Cholesterol (40-59) mg/dL Urine WBC (Auto) (0.0-6.0) /HPF Salicylates (2.8-20.0) mg/dL Acetaminophen (10.0-30.0) ug/mL 08/15/18 08/15/18 08/15/18 Range/Units 18:31 19:14 19:14 WBC (4.5-11.0) K/mm3 RBC (3.65-5.03) M/mm3 Hgb (10.1-14.3) gm/dl Hct (30.3-42.9) % Seg Neuts % (Manual) (40.0-70.0) % Lymphocytes % (Manual) (13.4-35.0) % Nucleated RBC % (0.0-0.9) % Lymphocytes # (Manual) (1.2-5.4) K/mm3 D-Dimer (0-234) ng/mlDDU POC ABG pH (7.35-7.45) POC ABG pCO2 (35-45) POC ABG pO2 (80-105) VBG pH (7.320-7.420) Potassium (3.6-5.0) mmol/L Chloride (98-107) mmol/L Carbon Dioxide (22-30) mmol/L BUN (7-17) mg/dL Creatinine (0.7-1.2) mg/dL Glucose (65-100) mg/dL Hemoglobin A1c (4-6) % Lactic Acid 2.70 H* (0.7-2.0) mmol/L Calcium (8.4-10.2) mg/dL AST (5-40) units/L ALT (7-56) units/L Troponin T 0.454 H* (0.00-0.029) ng/mL Total Protein (6.3-8.2) g/dL Albumin (3.9-5) g/dL Triglycerides 356 H (2-149) mg/dL LDL Cholesterol Direct 4 L (50-130) mg/dL HDL Cholesterol 10 L (40-59) mg/dL Urine WBC (Auto) (0.0-6.0) /HPF Salicylates < 0.3 L (2.8-20.0) mg/dL Acetaminophen (10.0-30.0) ug/mL 08/15/18 08/15/18 08/15/18 Range/Units 19:14 19:15 23:09 WBC (4.5-11.0) K/mm3 RBC (3.65-5.03) M/mm3 Hgb (10.1-14.3) gm/dl Hct (30.3-42.9) % Seg Neuts % (Manual) (40.0-70.0) % Lymphocytes % (Manual) (13.4-35.0) % Nucleated RBC % (0.0-0.9) % Lymphocytes # (Manual) (1.2-5.4) K/mm3 D-Dimer (0-234) ng/mlDDU POC ABG pH (7.35-7.45) POC ABG pCO2 (35-45) POC ABG pO2 (80-105) VBG pH (7.320-7.420) Potassium (3.6-5.0) mmol/L Chloride (98-107) mmol/L Carbon Dioxide (22-30) mmol/L BUN (7-17) mg/dL Creatinine (0.7-1.2) mg/dL Glucose (65-100) mg/dL Hemoglobin A1c (4-6) % Lactic Acid 3.20 H* (0.7-2.0) mmol/L Calcium (8.4-10.2) mg/dL AST (5-40) units/L ALT (7-56) units/L Troponin T (0.00-0.029) ng/mL Total Protein (6.3-8.2) g/dL Albumin (3.9-5) g/dL Triglycerides (2-149) mg/dL LDL Cholesterol Direct (50-130) mg/dL HDL Cholesterol (40-59) mg/dL Urine WBC (Auto) 17.0 H (0.0-6.0) /HPF Salicylates (2.8-20.0) mg/dL Acetaminophen < 5.0 L (10.0-30.0) ug/mL 08/15/18 08/16/18 08/16/18 Range/Units 23:09 01:41 05:38 WBC (4.5-11.0) K/mm3 RBC 3.07 L (3.65-5.03) M/mm3 Hgb 9.8 L (10.1-14.3) gm/dl Hct 28.7 L (30.3-42.9) % Seg Neuts % (Manual) 84.0 H (40.0-70.0) % Lymphocytes % (Manual) 6.0 L (13.4-35.0) % Nucleated RBC % 4.0 H (0.0-0.9) % Lymphocytes # (Manual) 0.5 L (1.2-5.4) K/mm3 D-Dimer (0-234) ng/mlDDU POC ABG pH 7.323 L (7.35-7.45) POC ABG pCO2 34.7 L (35-45) POC ABG pO2 78 L (80-105) VBG pH (7.320-7.420) Potassium (3.6-5.0) mmol/L Chloride (98-107) mmol/L Carbon Dioxide (22-30) mmol/L BUN (7-17) mg/dL Creatinine (0.7-1.2) mg/dL Glucose (65-100) mg/dL Hemoglobin A1c 6.4 H (4-6) % Lactic Acid (0.7-2.0) mmol/L Calcium (8.4-10.2) mg/dL AST (5-40) units/L ALT (7-56) units/L Troponin T (0.00-0.029) ng/mL Total Protein (6.3-8.2) g/dL Albumin (3.9-5) g/dL Triglycerides (2-149) mg/dL LDL Cholesterol Direct (50-130) mg/dL HDL Cholesterol (40-59) mg/dL Urine WBC (Auto) (0.0-6.0) /HPF Salicylates (2.8-20.0) mg/dL Acetaminophen (10.0-30.0) ug/mL 08/16/18 Range/Units 05:38 WBC (4.5-11.0) K/mm3 RBC (3.65-5.03) M/mm3 Hgb (10.1-14.3) gm/dl Hct (30.3-42.9) % Seg Neuts % (Manual) (40.0-70.0) % Lymphocytes % (Manual) (13.4-35.0) % Nucleated RBC % (0.0-0.9) % Lymphocytes # (Manual) (1.2-5.4) K/mm3 D-Dimer (0-234) ng/mlDDU POC ABG pH (7.35-7.45) POC ABG pCO2 (35-45) POC ABG pO2 (80-105) VBG pH (7.320-7.420) Potassium 2.9 L* (3.6-5.0) mmol/L Chloride (98-107) mmol/L Carbon Dioxide 17 L (22-30) mmol/L BUN 62 H (7-17) mg/dL Creatinine 2.0 H (0.7-1.2) mg/dL Glucose (65-100) mg/dL Hemoglobin A1c (4-6) % Lactic Acid (0.7-2.0) mmol/L Calcium 7.8 L (8.4-10.2) mg/dL AST 619 H (5-40) units/L ALT 353 H (7-56) units/L Troponin T (0.00-0.029) ng/mL Total Protein 6.1 L (6.3-8.2) g/dL Albumin 2.8 L (3.9-5) g/dL Triglycerides (2-149) mg/dL LDL Cholesterol Direct (50-130) mg/dL HDL Cholesterol (40-59) mg/dL Urine WBC (Auto) (0.0-6.0) /HPF Salicylates (2.8-20.0) mg/dL Acetaminophen (10.0-30.0) ug/mL
[2018-08-16] MEDS ORDERED: TYLENOL PR PRN (17:01)
[2018-08-16] MEDS ORDERED: TYLENOL PR ONE (17:05)
[2018-08-16] MEDS ORDERED: LOVENOX SUB-Q SCH (22:00)
[2018-08-16] MEDS ORDERED: D5/0.45NS 1,000 ML IV SCH (23:00)
[2018-08-16 23:33] LABS: BUN/Creatinine Ratio 44; Blood Urea Nitrogen 40 mg/dL (7-17); Calcium 8.3 mg/dL (8.4-10.2); Hemolysis Index 13
[2018-08-17] MEDS ORDERED: LOVENOX SUB-Q ONE (00:41)
[2018-08-17] MEDS ORDERED: PEPCID IV ONE ×2 (00:42→09:38)
[2018-08-17] MEDS: COREG PO SCH ×3 (00:52→21:36)
[2018-08-17] MEDS: PEPCID IV SCH ×3 (00:52→21:34)
[2018-08-17] MEDS: SODIUM CHLORIDE FLUSH SYRINGE 10 ML IV SCH ×3 (00:53→21:37)
[2018-08-17 04:42] LABS: BUN/Creatinine Ratio 41; Blood Urea Nitrogen 33 mg/dL (7-17); Calcium 8.4 mg/dL (8.4-10.2); Hemolysis Index 8
[2018-08-17] MEDS ORDERED: K-DUR PO ONE (04:57)
[2018-08-17] MEDS ORDERED: POTASSIUM CHLORIDE PO ONE (05:00)
[2018-08-17] MEDS: K-DUR PO ONE ×2 (05:30→06:18)
[2018-08-17] MEDS ORDERED: D5/0.45NS 1,000 ML IV ONE (05:55)
--- NOTE | 2018-08-17 07:57 | Progress Note ---
Assessment and Plan 1. Acute kidney injury: Likely hemodynamic CHANDANA in the setting of volume depletion. Renal function is improving. Continue IV fluids. Monitor renal function. Avoid nephrotoxic agents. Meds dosage based on GFR. 2. FEN: Hypokalemia, replete K. Replete Phos. Volume depletion, continue IV fluids. Metabolic acidosis, improving. 3. Acute encephalopathy. 4. Respiratory failure: On vent. 5. Right lung pneumonia. 6. Shock Liver. Subjective Date of service: 08/17/18 Interval history: Patient was seen and examined at the bedside. Objective - Vital Signs Vital signs: Vital Signs - 12hr 08/16/18 08/16/18 08/16/18 20:00 22:01 23:00 Temperature Pulse Rate 88 86 84 Respiratory 29 H 30 H 30 H Rate Blood Pressure 147/58 Blood Pressure 147/51 129/47 [Right] O2 Sat by Pulse 95 95 98 Oximetry 08/16/18 08/17/18 08/17/18 23:30 00:00 00:30 Temperature Pulse Rate 85 86 86 Respiratory 31 H 30 H 31 H Rate Blood Pressure 122/69 135/51 131/49 Blood Pressure 135/51 [Right] O2 Sat by Pulse 96 97 97 Oximetry 08/17/18 08/17/18 08/17/18 00:36 01:00 01:10 Temperature Pulse Rate 86 84 85 Respiratory 31 H 30 H Rate Blood Pressure 126/46 Blood Pressure 131/49 [Right] O2 Sat by Pulse 97 97 98 Oximetry 08/17/18 08/17/18 08/17/18 01:30 02:00 02:30 Temperature Pulse Rate 78 83 83 Respiratory 34 H 31 H 31 H Rate Blood Pressure 133/62 129/51 143/50 Blood Pressure 129/51 [Right] O2 Sat by Pulse 97 97 97 Oximetry 08/17/18 08/17/18 08/17/18 03:00 03:30 03:45 Temperature Pulse Rate 89 83 85 Respiratory 34 H 31 H 33 H Rate Blood Pressure 132/58 140/46 Blood Pressure 140/46 [Right] O2 Sat by Pulse 97 98 97 Oximetry 08/17/18 08/17/18 08/17/18 04:00 04:30 04:38 Temperature Pulse Rate 83 84 Respiratory 32 H 33 H 30 H Rate Blood Pressure 140/48 144/57 Blood Pressure [Right] O2 Sat by Pulse 97 97 97 Oximetry 08/17/18 08/17/18 08/17/18 05:59 06:55 07:36 Temperature 98.8 F Pulse Rate 89 82 83 Respiratory 33 H 35 H Rate Blood Pressure 151/69 Blood Pressure 155/69 158/58 [Right] O2 Sat by Pulse 97 97 97 Oximetry - General Appearance General appearance: well-developed, well-nourished, appears stated age, intubated, other (on vent) EENT: ATNC, PERRL Neck: supple Respiratory: Present: Clear to Ascultation Cardiology: regular, S1S2, no murmurs Gastrointestinal: normoactive bowel sounds, no tenderness, no distended Integumentary: no rash, warm and dry Neurologic: other (not responding) Musculoskeletal: other (no edema) - Lab 08/16/18 05:38 08/17/18 03:42 Most recent lab results Calcium 8.4 mg/dL (8.4-10.2) 08/17/18 03:42 Phosphorus 1.50 mg/dL (2.5-4.5) L 08/17/18 03:42 Magnesium 1.90 mg/dL (1.7-2.3) 08/17/18 03:42 Medications & Allergies - Medications Allergies/Adverse Reactions: Allergies No Known Allergies Allergy (Unverified 08/15/18 16:49) Home Medications: Home Medications Medication Instructions Recorded Confirmed Last Taken Type Carvedilol 6.25 mg PO BID 08/15/18 08/15/18 Unknown History DULoxetine 60 mg PO QDAY 08/15/18 08/15/18 Unknown History Gabapentin 600 mg PO Q6HR PRN 08/15/18 08/15/18 Unknown History Methylphenidate 5 mg PO TID 08/15/18 08/15/18 Unknown History Morphabond ER 60 mg PO Q12HR 08/15/18 08/15/18 Unknown History Pravastatin Sodium 10 mg PO QDAY 08/15/18 08/15/18 Unknown History Tizanidine HCl 4 mg PO Q12HR 08/15/18 08/15/18 Unknown History oxyCODONE /ACETAMINOPHEN 7.5 - 325 mg PO Q8HR 08/15/18 08/15/18 Unknown History Active Medications: Generic Name Dose Route Start Last Admin Trade Name Freq PRN Reason Stop Dose Admin Acetaminophen 650 mg 08/15/18 22:12 Tylenol PO Q4H PRN Pain MILD(1-3)/Fever >100.5/MONDRAGON Acetaminophen 650 mg 08/16/18 17:01 08/16/18 17:11 Tylenol PA 650 mg Q4H PRN Administration Pain, Mild (1-3) Carvedilol 6.25 mg 08/15/18 22:45 08/17/18 00:52 Coreg PO Not Given BID [facility] Duloxetine HCl 60 mg 08/16/18 10:00 08/16/18 10:37 Cymbalta PO Not Given QDAY [facility] Enoxaparin Sodium 30 mg 08/16/18 22:00 08/17/18 00:52 Lovenox SUB-Q 30 mg QDAY@2200 [facility] Administration Famotidine 10 mg 08/15/18 23:00 08/17/18 00:52 Pepcid IV 10 mg BID [facility] Administration Fentanyl 50 mcg 08/15/18 21:55 08/15/18 22:42 Sublimaze IV 50 mcg Q10MIN PRN Administration ANALGESIA Hydromorphone HCl 0.5 mg 08/15/18 22:12 Dilaudid IV Q3H PRN Pain , Severe (7-10) Hydrophilic Ointment 1 applic 08/15/18 21:55 Vaseline Lip Therapy TP Q2HR PRN Dry Lips Fentanyl Citrate 2,000 mcg in 100 mls @ 4.082 mls/hr 08/15/18 22:00 Fentanyl Drip Premix IV TITR [facility] Protocol 1 MCG/KG/HR Midazolam HCl 100 mg/ Sodium 100 mls @ 2 mls/hr 08/15/18 22:00 08/16/18 18:00 Chloride IV 2 mg/hr TITR LAMAR 2 mls/hr Titration Protocol 2 MG/HR Ceftriaxone Sodium 1 gm in 50 mls @ 100 mls/hr 08/16/18 10:00 08/16/18 13:12 Rocephin/Ns 1 Gm/50 Ml IV 100 mls/hr Q24HR [facility] Administration Protocol Propofol 1,000 mg in 100 mls @ 2.449 mls/hr 08/15/18 21:15 08/15/18 22:20 Diprivan 10 Mg/Ml IV 0 mcg/kg/min TITR [facility] 0 mls/hr Titration Protocol 5 MCG/KG/MIN Azithromycin 500 mg/ Sodium 250 mls @ 250 mls/hr 08/16/18 06:26 08/16/18 11:43 Chloride IV 250 mls/hr Q24HR [facility] Administration Dextrose/Sodium Chloride 1,000 mls @ 100 mls/hr 08/16/18 23:00 08/16/18 23:01 D5/0.45ns IV 100 mls/hr DIRECT [facility] Administration Vancomycin HCl 1,250 mg/ 275 mls @ 166.667 mls/hr 08/17/18 10:00 Sodium Chloride IV Q24HR [facility] Metoclopramide HCl 5 mg 08/15/18 22:50 Reglan IV Q6H PRN Nausea And Vomiting Midazolam HCl 2 mg 08/15/18 21:55 08/15/18 22:42 Versed IV 2 mg Q10MIN PRN Administration Sedation Ondansetron HCl 4 mg 08/15/18 22:12 Zofran IV Q8H PRN Nausea And Vomiting Sodium Chloride 10 ml 08/16/18 10:00 08/17/18 00:53 Sodium Chloride Flush Syringe 10 Ml IV 10 ml BID L[facility]AR Administration Sodium Chloride 10 ml 08/15/18 22:12 Sodium Chloride Flush Syringe 10 Ml IV PRN PRN LINE FLUSH
[2018-08-17] MEDS ORDERED: SUBLIMAZE IV ONE (08:59)
[2018-08-17] MEDS ORDERED: KPHOS 30 MMOL in NACL 0.9% 500 ML 500 ML IV ONE (09:00)
[2018-08-17] MEDS ORDERED: SUBLIMAZE ONE ×2 (09:03→13:33)
[2018-08-17] MEDS: ROCEPHIN/NS 1 GM/50 ML 1 GM/50 ML BAG IV SCH (09:43)
[2018-08-17] MEDS: CYMBALTA PO SCH (09:44)
[2018-08-17] MEDS: ZITHROMAX 500 MG in NACL 0.9% 250ML 250 ML IV SCH (11:17)
--- NOTE | 2018-08-17 11:43 | Progress Note ---
Assessment and Plan Assessment and Plan Acute hypoxic-hypercapnic respiratory failure on MVS h/o COPD Acute encephalopathy( toxic-metabolic) Hypokalemia Acute kidney injury h/o Chronic narcotic dependence Aspiration pneumonia/CAP Hypokalemia GNR in tracheal aspirate Hypernatremia -Continue full MVS -Wean supplemental oxygen to keep O2 sats 88-90% -Lung protective strategies -Oxygen restrictive strategies -Daily ABGs/CXR -Stop antibiotics for CAP, start Zosyn for GNR pneumonia. Follow MURTAZA and ID and adjust therapy -VAP bundle addressed -Avoid benzodiazepines, use high dose fentanyl for agitation and analgesia -Volume resuscitation. Monitor renal indices -Daily SAT's & SBT's -Sedation target for RASS 0 to -1 -Stress ulcer prophylaxis -VTE prophylaxis -Nutrition consult for tube feedings -Aspiration precautions -Free water flushes for hypernatremia -Decrease IVF rate, once tube feedings are initiated. Currently onD51/2NSaline -Aspiration precautions -Accuchecks with glycemic control. Target glucose of 140-180 mg/dL -Continue bronchodilators with pulmonary hygiene per RT -Maintenance of sleep -wake cycle -Mobility as tolerated by hemodynamics -Influenza and pneumonia vaccination per protocol ..care plan discussed at length with RN/RT at the bedside Discussed with the over the phone. Updated him and care plan discussed. He states that his has been on chronic narcotics for over 15 years because of her back and neck pain. She apparently had a CXR 2 weeks ago, in preparation for some back intervention, apparently the CXR was normal at that time. He is also concerned that being on MVS, portends her . I explained that she is very ill, but at this time I am confident that with the right therapies she does had a good chance for recovery. In the event she starts deteriorating, I will also let him know. PROGNOSIS :FAIR CONDITION: CRITICAL CODE STATUS: FULL CODE The high probability of a clinically significant, sudden or life-threatening deterioration of the [respiratory, neurology, renal] system(s) required my full and direct attention, intervention and personal management. The aggregate critical care time was [45] minutes without overlap. Time includes spent on; [x] Data Review and interpretation [x] Patient assessment and monitoring of vital signs [x] Documentation [x] Medication orders and management Subjective Date of service: 08/17/18 Interval history: Follow up: Aspiration PNA, Abnormal CXR, Hypotension, Acute renal failure, Acute encephaloapthy, Acute hypoxemic respiraotry failure onMVS Seen and examined. Vitals, labs, medications, chart and imaging reviewed. 24 hours events reviewed. Agitation overnight per RN. No fevers, no vomiting. remains on full mechanical ventilatory support, no vasopresors, no fentanyl Had 2 loose BMs this morning. Objective Vital Signs - 12hr 08/17/18 08/17/18 08/17/18 00:00 00:30 00:36 Temperature Pulse Rate 86 86 86 Respiratory 30 H 31 H 31 H Rate Blood Pressure 135/51 131/49 Blood Pressure 135/51 131/49 [Right] O2 Sat by Pulse 97 97 97 Oximetry 08/17/18 08/17/18 08/17/18 01:00 01:10 01:30 Temperature Pulse Rate 84 85 78 Respiratory 30 H 34 H Rate Blood Pressure 126/46 133/62 Blood Pressure [Right] O2 Sat by Pulse 97 98 97 Oximetry 08/17/18 08/17/18 08/17/18 02:00 02:30 03:00 Temperature Pulse Rate 83 83 89 Respiratory 31 H 31 H 34 H Rate Blood Pressure 129/51 143/50 132/58 Blood Pressure 129/51 [Right] O2 Sat by Pulse 97 97 97 Oximetry 08/17/18 08/17/18 08/17/18 03:30 03:45 04:00 Temperature Pulse Rate 83 85 83 Respiratory 31 H 33 H 32 H Rate Blood Pressure 140/46 140/48 Blood Pressure 140/46 [Right] O2 Sat by Pulse 98 97 97 Oximetry 08/17/18 08/17/18 08/17/18 04:30 04:38 05:59 Temperature Pulse Rate 84 89 Respiratory 33 H 30 H 33 H Rate Blood Pressure 144/57 Blood Pressure 155/69 [Right] O2 Sat by Pulse 97 97 97 Oximetry 08/17/18 08/17/18 08/17/18 06:55 07:31 07:36 Temperature 98.8 F Pulse Rate 82 91 H 83 Respiratory 35 H 30 H Rate Blood Pressure 151/69 Blood Pressure 158/58 151/69 [Right] O2 Sat by Pulse 97 97 97 Oximetry 08/17/18 08/17/18 07:50 11:27 Temperature 100.4 F H Pulse Rate 80 Respiratory Rate Blood Pressure 154/71 Blood Pressure [Right] O2 Sat by Pulse Oximetry CBC and BMP: 08/16/18 05:38 08/18/18 04:10 ABG, PT/INR, D-dimer: ABG POC ABG pH 7.483 (7.35-7.45) H 08/17/18 11:02 POC ABG pCO2 34.7 (35-45) L 08/16/18 01:41 POC ABG pO2 96 (80-105) 08/17/18 11:02 POC ABG HCO3 20.0 (22-26 mml/L) 08/17/18 11:02 POC ABG Total CO2 21 (23-27mmol/L) 08/17/18 11:02 POC ABG O2 Sat 98 08/17/18 11:02 PT/INR, D-dimer D-Dimer 2768.33 ng/mlDDU (0-234) H 08/15/18 18:31 Abnormal lab findings: Abnormal Labs 08/15/18 08/15/18 08/15/18 17:52 17:52 17:52 WBC 12.7 H RBC 3.25 L Hgb Hct Seg Neuts % (Manual) Lymphocytes % (Manual) 6.0 L Nucleated RBC % Lymphocytes # (Manual) 0.8 L D-Dimer POC ABG pH POC ABG pCO2 POC ABG pO2 VBG pH Potassium 3.4 L Chloride 94.6 L Carbon Dioxide 17 L BUN 67 H Creatinine 3.5 H Glucose 131 H Hemoglobin A1c Lactic Acid 5.20 H* Calcium 7.6 L Phosphorus AST 887 H ALT 316 H Troponin T Total Protein Albumin 3.1 L Triglycerides LDL Cholesterol Direct HDL Cholesterol Urine WBC (Auto) Salicylates Acetaminophen 08/15/18 08/15/18 08/15/18 18:11 18:19 18:31 WBC RBC Hgb Hct Seg Neuts % (Manual) Lymphocytes % (Manual) Nucleated RBC % Lymphocytes # (Manual) D-Dimer 2768.33 H POC ABG pH 7.173 L POC ABG pCO2 47.8 H POC ABG pO2 177 H VBG pH 7.187 L* Potassium Chloride Carbon Dioxide BUN Creatinine Glucose Hemoglobin A1c Lactic Acid Calcium Phosphorus AST ALT Troponin T Total Protein Albumin Triglycerides LDL Cholesterol Direct HDL Cholesterol Urine WBC (Auto) Salicylates Acetaminophen 08/15/18 08/15/18 08/15/18 18:31 19:14 19:14 WBC RBC Hgb Hct Seg Neuts % (Manual) Lymphocytes % (Manual) Nucleated RBC % Lymphocytes # (Manual) D-Dimer POC ABG pH POC ABG pCO2 POC ABG pO2 VBG pH Potassium Chloride Carbon Dioxide BUN Creatinine Glucose Hemoglobin A1c Lactic Acid 2.70 H* Calcium Phosphorus AST ALT Troponin T 0.454 H* Total Protein Albumin Triglycerides 356 H LDL Cholesterol Direct 4 L HDL Cholesterol 10 L Urine WBC (Auto) Salicylates < 0.3 L Acetaminophen 08/15/18 08/15/18 08/15/18 19:14 19:15 23:09 WBC RBC Hgb Hct Seg Neuts % (Manual) Lymphocytes % (Manual) Nucleated RBC % Lymphocytes # (Manual) D-Dimer POC ABG pH POC ABG pCO2 POC ABG pO2 VBG pH Potassium Chloride Carbon Dioxide BUN Creatinine Glucose Hemoglobin A1c Lactic Acid 3.20 H* Calcium Phosphorus AST ALT Troponin T Total Protein Albumin Triglycerides LDL Cholesterol Direct HDL Cholesterol Urine WBC (Auto) 17.0 H Salicylates Acetaminophen < 5.0 L 08/15/18 08/16/18 08/16/18 23:09 01:41 05:38 WBC RBC 3.07 L Hgb 9.8 L Hct 28.7 L Seg Neuts % (Manual) 84.0 H Lymphocytes % (Manual) 6.0 L Nucleated RBC % 4.0 H Lymphocytes # (Manual) 0.5 L D-Dimer POC ABG pH 7.323 L POC ABG pCO2 34.7 L POC ABG pO2 78 L VBG pH Potassium Chloride Carbon Dioxide BUN Creatinine Glucose Hemoglobin A1c 6.4 H Lactic Acid Calcium Phosphorus AST ALT Troponin T Total Protein Albumin Triglycerides LDL Cholesterol Direct HDL Cholesterol Urine WBC (Auto) Salicylates Acetaminophen 08/16/18 08/16/18 08/17/18 05:38 22:43 03:42 WBC RBC Hgb Hct Seg Neuts % (Manual) Lymphocytes % (Manual) Nucleated RBC % Lymphocytes # (Manual) D-Dimer POC ABG pH POC ABG pCO2 POC ABG pO2 VBG pH Potassium 2.9 L* 3.1 L 2.9 L* Chloride 108.8 H 111.9 H Carbon Dioxide 17 L 19 L 21 L BUN 62 H 40 H 33 H Creatinine 2.0 H Glucose 139 H 145 H Hemoglobin A1c Lactic Acid Calcium 7.8 L 8.3 L Phosphorus 1.50 L AST 619 H ALT 353 H Troponin T Total Protein 6.1 L Albumin 2.8 L Triglycerides LDL Cholesterol Direct HDL Cholesterol Urine WBC (Auto) Salicylates Acetaminophen 08/17/18 11:02 WBC RBC Hgb Hct Seg Neuts % (Manual) Lymphocytes % (Manual) Nucleated RBC % Lymphocytes # (Manual) D-Dimer POC ABG pH 7.483 H POC ABG pCO2 POC ABG pO2 VBG pH Potassium Chloride Carbon Dioxide BUN Creatinine Glucose Hemoglobin A1c Lactic Acid Calcium Phosphorus AST ALT Troponin T Total Protein Albumin Triglycerides LDL Cholesterol Direct HDL Cholesterol Urine WBC (Auto) Salicylates Acetaminophen
[2018-08-17] MEDS ORDERED: DIPRIVAN 10 MG/ML 1,000 MG/100 ML BOTTLE IV ONE (12:19)
[2018-08-17] MEDS: DIPRIVAN 10 MG/ML 1,000 MG/100 ML BOTTLE IV SCH (12:25)
[2018-08-17] MEDS: VANCOMYCIN 1,250 MG in NACL 0.9% 250ML 250 ML IV SCH (12:32)
--- NOTE | 2018-08-17 12:43 | XRay Report ---
PORTABLE CHEST INDICATION: Respiratory failure, pneumonia. COMPARISON: Yesterday. FINDINGS: Portable, frontal chest radiograph, 12:20 PM, 08/17/2018 demonstrates stable cardiomediastinal silhouette/cardiomegaly, aortic knob calcifications, various iatrogenic changes/supporting devices and bony degenerative changes. Interstitial infiltrates again noted, more so throughout the right lung and greatest toward the base with subtle right pleural effusion difficult to entirely exclude. Slightly prominent interstitial markings in the left lower lung zone may also be present. CONCLUSION: 1. Asymmetric interstitial infiltrates again noted, right greater than left. Though progressed since 02/05/2011 CXR available at this institution, differential considerations should include chronic interstitial lung disease with possible superimposed edema or pneumonia in an appropriate setting. 2. Other findings, including various iatrogenic changes/supporting devices in this intubated patient. Thank you for the opportunity to participate in this patient's care.
[2018-08-17] MEDS ORDERED: fentaNYL DRIP Premix 2,000 MCG/100 ML BAG IV ONE (13:21)
[2018-08-17] MEDS: fentaNYL DRIP Premix 2,000 MCG/100 ML BAG IV SCH ×2 (13:30→21:10)
[2018-08-17] MEDS: SUBLIMAZE IV PRN (13:36)
[2018-08-17] MEDS ORDERED: TYLENOL ONE (13:50)
[2018-08-17] MEDS: ZOSYN/NS 4.5GM/100ML 4.5 GM/100 ML VIAL IV SCH ×2 (14:06→21:35)
[2018-08-17] MEDS: TYLENOL PO PRN (14:08)
[2018-08-17] MEDS ORDERED: SIMPLE SYRUP FEEDTUBE PRN ×4 (14:44→15:55)
[2018-08-17] MEDS ORDERED: SODIUM BICARBONATE FEEDTUBE PRN ×2 (14:44→15:55)
[2018-08-17] MEDS ORDERED: PANCREAZE DR 10,500 UNIT FEEDTUBE PRN ×2 (14:44→15:55)
--- NOTE | 2018-08-17 15:54 | Progress Note ---
Assessment and Plan Acute hypoxic-hypercapnic respiratory failure on MVS h/o COPD Acute encephalopathy( toxic-metabolic) Hypokalemia Acute kidney injury h/o Chronic narcotic dependence Aspiration pneumonia/CAP Hypokalemia -Continue full MVS -Wean supplemental oxygen to keep O2 sats 88-90% -Lung protective strategies -Oxygen restrictive strategies -Daily ABGs/CXR -Antibiotics for CAP -Follow tracheal aspirate cultures and adjust antibiotic therapy based on MURTAZA/ID -Get procalcitonin to help guide antibiotic therapy. -VAP bundle addressed -Volume resuscitation. Monitor renal inidces -Daily SAT's & SBT's -Sedation target for RASS 0 to -1 -Stress ulcer prophylaxis -VTE prophylaxis -Nutrition consult for tube feedings -Aspiration precautions -Accuchecks with glycemic control. Target glucose of 140-180 mg/dL -Continue bronchodilators with pulmonary hygiene per RT -Maintenance of sleep -wake cycle -Mobility as tolerated by hemodynamics -Follow up lactic acid levels -Influenza and pneumonia vaccination per protocol Subjective Date of service: 08/17/18 Principal diagnosis: Sepsis/Resp failure Interval history: Same condition Objective - Constitutional Vitals: Vital Signs - 12hr 08/17/18 08/17/18 08/17/18 04:00 04:30 04:38 Temperature Pulse Rate 83 84 Respiratory 32 H 33 H 30 H Rate Blood Pressure 140/48 144/57 Blood Pressure [Right] O2 Sat by Pulse 97 97 97 Oximetry 08/17/18 08/17/18 08/17/18 05:59 06:55 07:31 Temperature 98.8 F Pulse Rate 89 82 91 H Respiratory 33 H 35 H 30 H Rate Blood Pressure Blood Pressure 155/69 158/58 151/69 [Right] O2 Sat by Pulse 97 97 97 Oximetry 08/17/18 08/17/18 08/17/18 07:36 07:50 11:02 Temperature 100.4 F H Pulse Rate 83 91 H Respiratory Rate Blood Pressure 151/69 Blood Pressure [Right] O2 Sat by Pulse 97 98 Oximetry 08/17/18 08/17/18 08/17/18 11:27 12:30 12:47 Temperature 100.0 F H Pulse Rate 80 95 H 72 Respiratory 30 H 34 H 30 H Rate Blood Pressure 154/71 Blood Pressure 81/23 95/35 [Right] O2 Sat by Pulse 98 98 97 Oximetry 08/17/18 08/17/18 08/17/18 13:00 13:30 13:48 Temperature 102.1 F H Pulse Rate 75 85 Respiratory 34 H 36 H Rate Blood Pressure Blood Pressure 149/80 175/76 [Right] O2 Sat by Pulse 100 100 Oximetry 08/17/18 08/17/18 14:15 15:22 Temperature Pulse Rate 75 75 Respiratory 34 H Rate Blood Pressure Blood Pressure 139/59 [Right] O2 Sat by Pulse 98 98 Oximetry General appearance: Present: no acute distress, well-nourished - EENT Eyes: PERRL, EOM intact ENT: hearing intact, clear oral mucosa Ears: bilateral: normal - Neck Neck: supple, normal ROM - Respiratory Respiratory effort: normal Respiratory: bilateral: CTA - Breasts Breasts: normal - Cardiovascular Rhythm: regular Heart Sounds: Present: S1 & S2. Absent: gallop, rub Extremities: pulses intact, No edema, normal color, Full ROM - Gastrointestinal General gastrointestinal: Present: soft, non-tender, non-distended, normal bowel sounds - Genitourinary Female genitourinary: normal - Integumentary Integumentary: clear, warm, dry - Musculoskeletal Musculoskeletal: 1, strength equal bilaterally - Neurologic Neurologic: moves all extremities - Psychiatric Psychiatric: memory intact, appropriate mood/affect, intact judgment & insight - Labs CBC & Chem 7: 08/16/18 05:38 08/19/18 04:15 Labs: Abnormal lab results 08/16/18 08/17/18 08/17/18 Range/Units 22:43 03:42 11:02 POC ABG pH 7.483 H (7.35-7.45) Potassium 3.1 L 2.9 L* (3.6-5.0) mmol/L Chloride 108.8 H 111.9 H (98-107) mmol/L Carbon Dioxide 19 L 21 L (22-30) mmol/L BUN 40 H 33 H (7-17) mg/dL Glucose 139 H 145 H (65-100) mg/dL Calcium 8.3 L (8.4-10.2) mg/dL Phosphorus 1.50 L (2.5-4.5) mg/dL
[2018-08-17] MEDS ORDERED: PROVENTIL IH PRN (17:00)
[2018-08-17 17:10] LABS: BUN/Creatinine Ratio 33; Blood Urea Nitrogen 23 mg/dL (7-17); Calcium 8.1 mg/dL (8.4-10.2); Hemolysis Index 42
[2018-08-17] MEDS: DUONEB *Not for PRN Use IH SCH ×2 (17:14→19:19)
[2018-08-17] MEDS: KCL 10MEQ/100ML 10 MEQ/100 ML BAG IV SCH ×4 (17:36→21:55)
[2018-08-17] MEDS: LOVENOX SUB-Q SCH (21:34)
[2018-08-18] MEDS: DIPRIVAN 10 MG/ML 1,000 MG/100 ML BOTTLE IV SCH ×2 (00:47→16:31)
[2018-08-18] MEDS: TYLENOL PO PRN ×2 (03:37→08:11)
[2018-08-18 05:10] LABS: BUN/Creatinine Ratio 30; Blood Urea Nitrogen 21 mg/dL (7-17); Calcium 8.5 mg/dL (8.4-10.2); Hemolysis Index 3
[2018-08-18] MEDS: ZOSYN/NS 4.5GM/100ML 4.5 GM/100 ML VIAL IV SCH ×3 (06:33→21:50)
[2018-08-18] MEDS: fentaNYL DRIP Premix 2,000 MCG/100 ML BAG IV SCH ×2 (06:33→16:42)
[2018-08-18] MEDS ORDERED: KPHOS 45 MMOL in NACL 0.9% 500 ML 500 ML IV ONE (06:41)
[2018-08-18] MEDS: DUONEB *Not for PRN Use IH SCH ×4 (08:08→19:21)
--- NOTE | 2018-08-18 09:09 | Progress Note ---
Assessment and Plan 1. Acute kidney injury: Likely hemodynamic CHANDANA in the setting of volume depletion. Renal function is better. Monitor renal function. Avoid nephrotoxic agents. Meds dosage based on GFR. 2. FEN: Hypokalemia, replete K. Replete Phos. Metabolic acidosis, improved. 3. Acute encephalopathy. 4. Respiratory failure: On vent. 5. Right lung pneumonia. 6. Shock Liver. Subjective Date of service: 08/18/18 Interval history: Patient was seen and examined at the bedside. Objective - Vital Signs Vital signs: Vital Signs - 12hr 08/17/18 08/17/18 08/17/18 21:36 21:41 21:51 Temperature Pulse Rate 81 80 81 Pulse Rate [ Anterior Bilateral Throughout] Respiratory 32 H 34 H Rate Respiratory Rate [Anterior Bilateral Throughout] Blood Pressure 137/47 137/47 137/47 O2 Sat by Pulse 93 93 Oximetry 08/17/18 08/17/18 08/17/18 22:00 22:10 22:21 Temperature Pulse Rate 79 80 78 Pulse Rate [ Anterior Bilateral Throughout] Respiratory 33 H 33 H 34 H Rate Respiratory Rate [Anterior Bilateral Throughout] Blood Pressure 137/47 127/47 127/47 O2 Sat by Pulse 94 93 95 Oximetry 08/17/18 08/17/18 08/17/18 22:30 22:41 22:51 Temperature Pulse Rate 81 80 77 Pulse Rate [ Anterior Bilateral Throughout] Respiratory 34 H 34 H 33 H Rate Respiratory Rate [Anterior Bilateral Throughout] Blood Pressure 146/58 127/47 127/47 O2 Sat by Pulse 95 94 95 Oximetry 08/17/18 08/17/18 08/17/18 23:00 23:11 23:20 Temperature Pulse Rate 77 84 79 Pulse Rate [ Anterior Bilateral Throughout] Respiratory 34 H 34 H 14 Rate Respiratory Rate [Anterior Bilateral Throughout] Blood Pressure 125/52 146/58 125/52 O2 Sat by Pulse 95 96 96 Oximetry 08/17/18 08/17/18 08/17/18 23:21 23:30 23:35 Temperature 100 F H Pulse Rate 79 77 Pulse Rate [ Anterior Bilateral Throughout] Respiratory 34 H 36 H Rate Respiratory Rate [Anterior Bilateral Throughout] Blood Pressure 146/58 133/58 O2 Sat by Pulse 96 95 Oximetry 08/17/18 08/17/18 08/18/18 23:41 23:51 00:00 Temperature Pulse Rate 80 81 79 Pulse Rate [ Anterior Bilateral Throughout] Respiratory 35 H 37 H 39 H Rate Respiratory Rate [Anterior Bilateral Throughout] Blood Pressure 133/58 133/58 146/60 O2 Sat by Pulse 94 94 91 Oximetry 08/18/18 08/18/18 08/18/18 00:11 00:21 00:31 Temperature Pulse Rate 84 85 88 Pulse Rate [ Anterior Bilateral Throughout] Respiratory 37 H 35 H 37 H Rate Respiratory Rate [Anterior Bilateral Throughout] Blood Pressure 133/58 133/58 171/78 O2 Sat by Pulse 95 94 93 Oximetry 08/18/18 08/18/18 08/18/18 00:41 00:51 01:00 Temperature Pulse Rate 75 88 90 Pulse Rate [ Anterior Bilateral Throughout] Respiratory 37 H 36 H 40 H Rate Respiratory Rate [Anterior Bilateral Throughout] Blood Pressure 171/78 171/78 178/87 O2 Sat by Pulse 92 93 92 Oximetry 08/18/18 08/18/18 08/18/18 01:11 01:20 01:31 Temperature Pulse Rate 87 85 87 Pulse Rate [ Anterior Bilateral Throughout] Respiratory 36 H 38 H 39 H Rate Respiratory Rate [Anterior Bilateral Throughout] Blood Pressure 178/87 179/70 199/61 O2 Sat by Pulse 91 92 92 Oximetry 08/18/18 08/18/18 08/18/18 01:40 01:50 02:00 Temperature Pulse Rate 87 83 86 Pulse Rate [ Anterior Bilateral Throughout] Respiratory 39 H 37 H 37 H Rate Respiratory Rate [Anterior Bilateral Throughout] Blood Pressure 199/61 199/61 150/52 O2 Sat by Pulse 92 92 91 Oximetry 08/18/18 08/18/18 08/18/18 02:11 02:21 02:30 Temperature Pulse Rate 89 87 89 Pulse Rate [ Anterior Bilateral Throughout] Respiratory 39 H 39 H 32 H Rate Respiratory Rate [Anterior Bilateral Throughout] Blood Pressure 149/55 152/56 144/54 O2 Sat by Pulse 91 91 96 Oximetry 08/18/18 08/18/18 08/18/18 02:41 02:50 03:00 Temperature Pulse Rate 86 87 84 Pulse Rate [ Anterior Bilateral Throughout] Respiratory 39 H 38 H 39 H Rate Respiratory Rate [Anterior Bilateral Throughout] Blood Pressure 144/54 144/54 147/64 O2 Sat by Pulse 90 91 91 Oximetry 08/18/18 08/18/18 08/18/18 03:11 03:13 03:21 Temperature Pulse Rate 85 83 86 Pulse Rate [ Anterior Bilateral Throughout] Respiratory 37 H 15 36 H Rate Respiratory Rate [Anterior Bilateral Throughout] Blood Pressure 147/64 147/65 146/62 O2 Sat by Pulse 91 94 93 Oximetry 08/18/18 08/18/18 08/18/18 03:26 03:30 03:41 Temperature 98.9 F Pulse Rate 91 H 87 Pulse Rate [ Anterior Bilateral Throughout] Respiratory 36 H 36 H Rate Respiratory Rate [Anterior Bilateral Throughout] Blood Pressure 138/63 138/63 O2 Sat by Pulse 92 93 Oximetry 08/18/18 08/18/18 08/18/18 03:51 04:00 04:01 Temperature Pulse Rate 86 85 Pulse Rate [ Anterior Bilateral Throughout] Respiratory 39 H 36 H 38 H Rate Respiratory Rate [Anterior Bilateral Throughout] Blood Pressure 135/47 139/55 O2 Sat by Pulse 92 96 92 Oximetry 08/18/18 08/18/18 08/18/18 04:11 04:21 04:31 Temperature Pulse Rate 85 83 86 Pulse Rate [ Anterior Bilateral Throughout] Respiratory 38 H 39 H 38 H Rate Respiratory Rate [Anterior Bilateral Throughout] Blood Pressure 139/55 145/61 145/61 O2 Sat by Pulse 93 92 Oximetry 08/18/18 08/18/18 08/18/18 04:41 04:51 05:01 Temperature Pulse Rate 81 81 76 Pulse Rate [ Anterior Bilateral Throughout] Respiratory 36 H 35 H 36 H Rate Respiratory Rate [Anterior Bilateral Throughout] Blood Pressure 145/61 145/61 145/61 O2 Sat by Pulse Oximetry 08/18/18 08/18/18 08/18/18 05:11 05:21 05:30 Temperature Pulse Rate 75 78 77 Pulse Rate [ Anterior Bilateral Throughout] Respiratory 35 H 32 H 35 H Rate Respiratory Rate [Anterior Bilateral Throughout] Blood Pressure 145/61 117/59 119/60 O2 Sat by Pulse 95 96 94 Oximetry 08/18/18 08/18/18 08/18/18 05:41 05:51 06:00 Temperature Pulse Rate 77 76 75 Pulse Rate [ Anterior Bilateral Throughout] Respiratory 34 H 33 H 32 H Rate Respiratory Rate [Anterior Bilateral Throughout] Blood Pressure 119/60 125/60 127/56 O2 Sat by Pulse 96 96 94 Oximetry 08/18/18 08/18/18 08/18/18 06:11 06:21 06:30 Temperature Pulse Rate 74 76 75 Pulse Rate [ Anterior Bilateral Throughout] Respiratory 33 H 34 H 35 H Rate Respiratory Rate [Anterior Bilateral Throughout] Blood Pressure 127/56 125/60 162/72 O2 Sat by Pulse 96 96 93 Oximetry 08/18/18 08/18/18 08/18/18 06:41 06:51 07:00 Temperature Pulse Rate 79 81 82 Pulse Rate [ Anterior Bilateral Throughout] Respiratory 34 H 37 H 37 H Rate Respiratory Rate [Anterior Bilateral Throughout] Blood Pressure 162/72 150/71 150/71 O2 Sat by Pulse 96 96 94 Oximetry 08/18/18 08/18/18 08/18/18 07:11 07:21 07:31 Temperature Pulse Rate 82 83 84 Pulse Rate [ Anterior Bilateral Throughout] Respiratory 38 H 38 H 39 H Rate Respiratory Rate [Anterior Bilateral Throughout] Blood Pressure 162/77 171/66 162/66 O2 Sat by Pulse 95 96 95 Oximetry 08/18/18 08/18/18 08/18/18 07:41 07:51 08:00 Temperature 103.0 F H Pulse Rate 86 83 84 Pulse Rate [ Anterior Bilateral Throughout] Respiratory 39 H 37 H 37 H Rate Respiratory Rate [Anterior Bilateral Throughout] Blood Pressure 162/66 171/66 168/66 O2 Sat by Pulse 96 96 93 Oximetry 08/18/18 08/18/18 08/18/18 08:09 08:11 08:21 Temperature Pulse Rate 85 84 88 Pulse Rate [ 84 Anterior Bilateral Throughout] Respiratory 38 H 39 H Rate Respiratory 38 H Rate [Anterior Bilateral Throughout] Blood Pressure 165/63 168/66 165/63 O2 Sat by Pulse 95 96 96 Oximetry 08/18/18 08/18/18 08/18/18 08:30 08:41 08:51 Temperature Pulse Rate 79 83 82 Pulse Rate [ Anterior Bilateral Throughout] Respiratory 33 H 36 H 32 H Rate Respiratory Rate [Anterior Bilateral Throughout] Blood Pressure 156/63 156/63 168/81 O2 Sat by Pulse 93 93 94 Oximetry - General Appearance General appearance: well-developed, well-nourished, appears stated age, intubated, other (on vent) EENT: ATNC, PERRL Neck: supple Respiratory: Present: Clear to Ascultation Cardiology: regular, S1S2, no murmurs Gastrointestinal: normoactive bowel sounds, no tenderness, no distended Integumentary: no rash, warm and dry Neurologic: other (not responding) Musculoskeletal: other (no edema) - Lab 08/16/18 05:38 08/18/18 04:10 Most recent lab results Calcium 8.5 mg/dL (8.4-10.2) 08/18/18 04:10 Phosphorus 1.50 mg/dL (2.5-4.5) L D 08/18/18 04:10 Magnesium 1.90 mg/dL (1.7-2.3) 08/17/18 03:42 Medications & Allergies - Medications Allergies/Adverse Reactions: Allergies No Known Allergies Allergy (Unverified 08/15/18 16:49) Home Medications: Home Medications Medication Instructions Recorded Confirmed Last Taken Type Carvedilol 6.25 mg PO BID 08/15/18 08/15/18 Unknown History DULoxetine 60 mg PO QDAY 08/15/18 08/15/18 Unknown History Gabapentin 600 mg PO Q6HR PRN 08/15/18 08/15/18 Unknown History Methylphenidate 5 mg PO TID 08/15/18 08/15/18 Unknown History Morphabond ER 60 mg PO Q12HR 08/15/18 08/15/18 Unknown History Pravastatin Sodium 10 mg PO QDAY 08/15/18 08/15/18 Unknown History Tizanidine HCl 4 mg PO Q12HR 08/15/18 08/15/18 Unknown History oxyCODONE /ACETAMINOPHEN 7.5 - 325 mg PO Q8HR 08/15/18 08/15/18 Unknown History Active Medications: Generic Name Dose Route Start Last Admin Trade Name Freq PRN Reason Stop Dose Admin Acetaminophen 650 mg 08/15/18 22:12 08/18/18 08:11 Tylenol PO 650 mg Q4H PRN Administration Pain MILD(1-3)/Fever >100.5/MONDRAGON Acetaminophen 650 mg 08/16/18 17:01 08/16/18 17:11 Tylenol OR 650 mg Q4H PRN Administration Pain, Mild (1-3) Albuterol 2.5 mg 08/17/18 17:00 Proventil IH Q3HRT PRN Shortness Of Breath Albuterol/Ipratropium 1 ampul 08/17/18 16:00 08/18/18 08:08 Duoneb *Not For Prn Use* IH 1 ampul QIDRT LAMAR Administration Lipase/Protease/Amylase 1 each 08/17/18 15:55 Pancreazrashad Elizabeth 10,500 Unit FEEDTUBE PRN PRN For Clogged Feeding Tube Carvedilol 6.25 mg 08/15/18 22:45 08/17/18 21:36 Coreg PO 6.25 mg BID LAMAR Administration Duloxetine HCl 60 mg 08/16/18 10:00 08/17/18 09:44 Cymbalta PO Not Given QDAY LAMAR Enoxaparin Sodium 40 mg 08/17/18 22:00 08/17/18 21:34 Lovenox SUB-Q 40 mg QDAY@2200 LAMAR Administration Famotidine 20 mg 08/17/18 22:00 08/17/18 21:34 Pepcid IV 20 mg BID LAMAR Administration Fentanyl 50 mcg 08/15/18 21:55 08/17/18 13:36 Sublimaze IV 50 mcg Q10MIN PRN Administration ANALGESIA Hydromorphone HCl 0.5 mg 08/15/18 22:12 Dilaudid IV Q3H PRN Pain , Severe (7-10) Hydrophilic Ointment 1 applic 08/15/18 21:55 Vaseline Lip Therapy TP Q2HR PRN Dry Lips Fentanyl Citrate 2,000 mcg in 100 mls @ 4.082 mls/hr 08/15/18 22:00 08/18/18 06:33 Fentanyl Drip Premix IV 2 mcg/kg/hr TITR LAMAR 8.165 mls/hr Administration Protocol 1 MCG/KG/HR Propofol 1,000 mg in 100 mls @ 2.449 mls/hr 08/15/18 21:15 08/18/18 01:30 Diprivan 10 Mg/Ml IV 10 mcg/kg/min TITR LAMAR 4.899 mls/hr Titration Protocol 5 MCG/KG/MIN Vancomycin HCl 1,250 mg/ 275 mls @ 166.667 mls/hr 08/17/18 10:00 08/17/18 12:32 Sodium Chloride IV 166.667 mls/hr Q24HR LAMAR Administration Piperacillin Sod/Tazobactam Sod 4.5 gm in 100 mls @ 200 mls/hr 08/17/18 14:00 08/18/18 06:33 Zosyn/Ns 4.5gm/100ml IV 200 mls/hr Q8HR LAMAR Administration Protocol Norepinephrine 4 mg in 250 mls @ 7.5 mls/hr 08/17/18 20:00 Levophed Drip 4 Mg/Ns 250 Ml IV TITR LAMAR Protocol 2 MCG/MIN Potassium Phosphate 45 mmol/ 515 mls @ 85 mls/hr 08/18/18 06:41 08/18/18 08:10 Sodium Chloride IV 08/18/18 12:44 85 mls/hr ONCE ONE Administration Metoclopramide HCl 5 mg 08/15/18 22:50 Reglan IV Q6H PRN Nausea And Vomiting Ondansetron HCl 4 mg 08/15/18 22:12 Zofran IV Q8H PRN Nausea And Vomiting Simple Syrup 15 ml 08/17/18 15:55 Simple Syrup FEEDTUBE PRN PRN Hypoglycemia Simple Syrup 30 ml 08/17/18 15:55 Simple Syrup FEEDTUBE PRN PRN Hypoglycemia Sodium Bicarbonate 325 mg 08/17/18 15:55 Sodium Bicarbonate FEEDTUBE PRN PRN For Clogged Feeding Tube Sodium Chloride 10 ml 08/16/18 10:00 08/17/18 21:37 Sodium Chloride Flush Syringe 10 Ml IV 10 ml BID LAMAR Administration Sodium Chloride 10 ml 08/15/18 22:12 Sodium Chloride Flush Syringe 10 Ml IV PRN PRN LINE FLUSH
[2018-08-18] MEDS: CYMBALTA PO SCH (09:14)
[2018-08-18] MEDS: PEPCID IV SCH ×2 (10:04→21:51)
[2018-08-18] MEDS: VANCOMYCIN 1,250 MG in NACL 0.9% 250ML 250 ML IV SCH (10:04)
[2018-08-18] MEDS: COREG PO SCH ×2 (10:04→21:50)
--- NOTE | 2018-08-18 11:27 | Progress Note ---
Assessment and Plan Acute hypoxic-hypercapnic respiratory failure on MVS Acute COPD exacerbation NSTEMI Acute encephalopathy (toxic-metabolic) Hypokalemia Acute kidney injury h/o Chronic Narcotic Dependence Aspiration pneumonia/CAP Hypokalemia GNR in tracheal aspirate Hypernatremia (Prior CXR's suggest chronic/structural lung disease and etiology of fungemia unclear) - get CT of Chest to better evaluate pulmonary parenchyma - get CD4 count +/- HIV serologies - Diflucan 800 mg IV loading dose stat - ID consulted and care plan discussed - repeat serum troponin and get 2D ECHO +/- cardiology evaluation - reduce set rate on MVS to 16/min - schedule brovana & pulmicort re: COPD - discontinue manrique catheter now thar azotemia better - schedule 1/2 NS at 50 mls/hr X 1-2 liters re: contrast administration - Continue to Wean supplemental oxygen to keep O2 sats 88-90% (restrictive Oxygen strategies acutely) - continue lung protective strategies - Daily ABGs/CXR for now - Antiinfective's per ID rec's - VAP bundle addressed - Avoid benzodiazepines, use high dose fentanyl for agitation and analgesia - Daily SAT's & SBT's assessment - Sedation target for RASS 0 to -1 - Stress ulcer prophylaxis - VTE prophylaxis - enteral Nutrition as tolerated - VAP bundle addressed - Free water flushes for hypernatremia - continue accuchecks with glycemic control per SSI for Target glucose of 140- 180 mg/dL - Continue bronchodilators with pulmonary hygiene per RT - Maintenance of sleep -wake cycle - Mobility protocol for pressure ulcer prophylaxis as tolerated by hemodynamics - Influenza and pneumonia vaccination per protocol ..care plan discussed at length with RN/RT at the bedside ... re-evaluate in am & prn PROGNOSIS :FAIR CONDITION: CRITICAL CODE STATUS: FULL CODE The high probability of a clinically significant, sudden or life-threatening deterioration of the [respiratory, neurology, renal] system(s) required my full and direct attention, intervention and personal management. The aggregate critical care time was [35] minutes without overlap. Time includes spent on; [x] Data Review and interpretation [x] Patient assessment and monitoring of vital signs [x] Documentation [x] Medication orders and management Subjective Date of service: 08/18/18 Principal diagnosis: Acute hypoxemic hypercapnic Resp failure; AE-COPD; Acute kidney injury Interval history: Patient is seen today for: Acute hypoxemic - hypercapnic respiratory failure on MVS; Acute COPD exacerbation; Acute encephalopathy (toxic-metabolic); Hypokalemia; Acute kidney injury Seen and examined at bedside; 24hour events reviewed; nursing and respiratory care staff consulted; no adverse overnight events reported to me; work of breathing increased on MVS despite sedation / analgesia; no emesis or overt aspiration; growing yeast in blood culture; making good urine and azotemia improved. Objective Vital Signs - 12hr 08/17/18 08/17/18 08/17/18 23:30 23:35 23:41 Temperature 100 F H Pulse Rate 77 80 Pulse Rate [ Anterior Bilateral Throughout] Respiratory 36 H 35 H Rate Respiratory Rate [Anterior Bilateral Throughout] Blood Pressure 133/58 133/58 O2 Sat by Pulse 95 94 Oximetry 08/17/18 08/18/18 08/18/18 23:51 00:00 00:11 Temperature Pulse Rate 81 79 84 Pulse Rate [ Anterior Bilateral Throughout] Respiratory 37 H 39 H 37 H Rate Respiratory Rate [Anterior Bilateral Throughout] Blood Pressure 133/58 146/60 133/58 O2 Sat by Pulse 94 91 95 Oximetry 08/18/18 08/18/18 08/18/18 00:21 00:31 00:41 Temperature Pulse Rate 85 88 75 Pulse Rate [ Anterior Bilateral Throughout] Respiratory 35 H 37 H 37 H Rate Respiratory Rate [Anterior Bilateral Throughout] Blood Pressure 133/58 171/78 171/78 O2 Sat by Pulse 94 93 92 Oximetry 08/18/18 08/18/18 08/18/18 00:51 01:00 01:11 Temperature Pulse Rate 88 90 87 Pulse Rate [ Anterior Bilateral Throughout] Respiratory 36 H 40 H 36 H Rate Respiratory Rate [Anterior Bilateral Throughout] Blood Pressure 171/78 178/87 178/87 O2 Sat by Pulse 93 92 91 Oximetry 08/18/18 08/18/18 08/18/18 01:20 01:31 01:40 Temperature Pulse Rate 85 87 87 Pulse Rate [ Anterior Bilateral Throughout] Respiratory 38 H 39 H 39 H Rate Respiratory Rate [Anterior Bilateral Throughout] Blood Pressure 179/70 199/61 199/61 O2 Sat by Pulse 92 92 92 Oximetry 08/18/18 08/18/18 08/18/18 01:50 02:00 02:11 Temperature Pulse Rate 83 86 89 Pulse Rate [ Anterior Bilateral Throughout] Respiratory 37 H 37 H 39 H Rate Respiratory Rate [Anterior Bilateral Throughout] Blood Pressure 199/61 150/52 149/55 O2 Sat by Pulse 92 91 91 Oximetry 08/18/18 08/18/18 08/18/18 02:21 02:30 02:41 Temperature Pulse Rate 87 89 86 Pulse Rate [ Anterior Bilateral Throughout] Respiratory 39 H 32 H 39 H Rate Respiratory Rate [Anterior Bilateral Throughout] Blood Pressure 152/56 144/54 144/54 O2 Sat by Pulse 91 96 90 Oximetry 08/18/18 08/18/18 08/18/18 02:50 03:00 03:11 Temperature Pulse Rate 87 84 85 Pulse Rate [ Anterior Bilateral Throughout] Respiratory 38 H 39 H 37 H Rate Respiratory Rate [Anterior Bilateral Throughout] Blood Pressure 144/54 147/64 147/64 O2 Sat by Pulse 91 91 91 Oximetry 08/18/18 08/18/18 08/18/18 03:13 03:21 03:26 Temperature 98.9 F Pulse Rate 83 86 Pulse Rate [ Anterior Bilateral Throughout] Respiratory 15 36 H Rate Respiratory Rate [Anterior Bilateral Throughout] Blood Pressure 147/65 146/62 O2 Sat by Pulse 94 93 Oximetry 08/18/18 08/18/18 08/18/18 03:30 03:41 03:51 Temperature Pulse Rate 91 H 87 86 Pulse Rate [ Anterior Bilateral Throughout] Respiratory 36 H 36 H 39 H Rate Respiratory Rate [Anterior Bilateral Throughout] Blood Pressure 138/63 138/63 135/47 O2 Sat by Pulse 92 93 92 Oximetry 08/18/18 08/18/18 08/18/18 04:00 04:01 04:11 Temperature Pulse Rate 85 85 Pulse Rate [ Anterior Bilateral Throughout] Respiratory 36 H 38 H 38 H Rate Respiratory Rate [Anterior Bilateral Throughout] Blood Pressure 139/55 139/55 O2 Sat by Pulse 96 92 93 Oximetry 08/18/18 08/18/18 08/18/18 04:21 04:31 04:41 Temperature Pulse Rate 83 86 81 Pulse Rate [ Anterior Bilateral Throughout] Respiratory 39 H 38 H 36 H Rate Respiratory Rate [Anterior Bilateral Throughout] Blood Pressure 145/61 145/61 145/61 O2 Sat by Pulse 92 Oximetry 08/18/18 08/18/18 08/18/18 04:51 05:01 05:11 Temperature Pulse Rate 81 76 75 Pulse Rate [ Anterior Bilateral Throughout] Respiratory 35 H 36 H 35 H Rate Respiratory Rate [Anterior Bilateral Throughout] Blood Pressure 145/61 145/61 145/61 O2 Sat by Pulse 95 Oximetry 08/18/18 08/18/18 08/18/18 05:21 05:30 05:41 Temperature Pulse Rate 78 77 77 Pulse Rate [ Anterior Bilateral Throughout] Respiratory 32 H 35 H 34 H Rate Respiratory Rate [Anterior Bilateral Throughout] Blood Pressure 117/59 119/60 119/60 O2 Sat by Pulse 96 94 96 Oximetry 08/18/18 08/18/18 08/18/18 05:51 06:00 06:11 Temperature Pulse Rate 76 75 74 Pulse Rate [ Anterior Bilateral Throughout] Respiratory 33 H 32 H 33 H Rate Respiratory Rate [Anterior Bilateral Throughout] Blood Pressure 125/60 127/56 127/56 O2 Sat by Pulse 96 94 96 Oximetry 08/18/18 08/18/18 08/18/18 06:21 06:30 06:41 Temperature Pulse Rate 76 75 79 Pulse Rate [ Anterior Bilateral Throughout] Respiratory 34 H 35 H 34 H Rate Respiratory Rate [Anterior Bilateral Throughout] Blood Pressure 125/60 162/72 162/72 O2 Sat by Pulse 96 93 96 Oximetry 08/18/18 08/18/18 08/18/18 06:51 07:00 07:11 Temperature Pulse Rate 81 82 82 Pulse Rate [ Anterior Bilateral Throughout] Respiratory 37 H 37 H 38 H Rate Respiratory Rate [Anterior Bilateral Throughout] Blood Pressure 150/71 150/71 162/77 O2 Sat by Pulse 96 94 95 Oximetry 08/18/18 08/18/18 08/18/18 07:21 07:31 07:41 Temperature 103.0 F H Pulse Rate 83 84 86 Pulse Rate [ Anterior Bilateral Throughout] Respiratory 38 H 39 H 39 H Rate Respiratory Rate [Anterior Bilateral Throughout] Blood Pressure 171/66 162/66 162/66 O2 Sat by Pulse 96 95 96 Oximetry 08/18/18 08/18/18 08/18/18 07:51 08:00 08:09 Temperature Pulse Rate 83 84 85 Pulse Rate [ 84 Anterior Bilateral Throughout] Respiratory 37 H 37 H Rate Respiratory 38 H Rate [Anterior Bilateral Throughout] Blood Pressure 171/66 168/66 165/63 O2 Sat by Pulse 96 93 95 Oximetry 08/18/18 08/18/18 08/18/18 08:11 08:19 08:21 Temperature Pulse Rate 84 88 Pulse Rate [ 83 Anterior Bilateral Throughout] Respiratory 38 H 39 H Rate Respiratory 36 H Rate [Anterior Bilateral Throughout] Blood Pressure 168/66 165/63 O2 Sat by Pulse 96 96 Oximetry 08/18/18 08/18/18 08/18/18 08:30 08:41 08:51 Temperature Pulse Rate 79 83 82 Pulse Rate [ Anterior Bilateral Throughout] Respiratory 33 H 36 H 32 H Rate Respiratory Rate [Anterior Bilateral Throughout] Blood Pressure 156/63 156/63 168/81 O2 Sat by Pulse 93 93 94 Oximetry 08/18/18 08/18/18 08/18/18 09:00 09:11 09:21 Temperature Pulse Rate 84 87 87 Pulse Rate [ Anterior Bilateral Throughout] Respiratory 34 H 39 H 42 H Rate Respiratory Rate [Anterior Bilateral Throughout] Blood Pressure 159/79 159/79 160/75 O2 Sat by Pulse 92 96 97 Oximetry 08/18/18 08/18/18 08/18/18 09:30 09:41 09:51 Temperature Pulse Rate 88 89 83 Pulse Rate [ Anterior Bilateral Throughout] Respiratory 43 H 42 H 40 H Rate Respiratory Rate [Anterior Bilateral Throughout] Blood Pressure 167/80 167/80 175/74 O2 Sat by Pulse 95 96 97 Oximetry 08/18/18 08/18/18 08/18/18 10:00 10:04 10:11 Temperature Pulse Rate 82 86 87 Pulse Rate [ Anterior Bilateral Throughout] Respiratory 39 H 42 H Rate Respiratory Rate [Anterior Bilateral Throughout] Blood Pressure 169/71 169/71 169/71 O2 Sat by Pulse 95 96 Oximetry 08/18/18 08/18/18 08/18/18 10:21 10:30 10:41 Temperature Pulse Rate 84 82 82 Pulse Rate [ Anterior Bilateral Throughout] Respiratory 38 H 36 H 35 H Rate Respiratory Rate [Anterior Bilateral Throughout] Blood Pressure 172/110 157/71 157/71 O2 Sat by Pulse 96 95 97 Oximetry 08/18/18 08/18/18 08/18/18 10:51 11:00 11:11 Temperature Pulse Rate 79 80 80 Pulse Rate [ Anterior Bilateral Throughout] Respiratory 38 H 36 H 36 H Rate Respiratory Rate [Anterior Bilateral Throughout] Blood Pressure 148/70 148/70 156/80 O2 Sat by Pulse 97 97 97 Oximetry Constitutional: appears uncomfortable, other (elderly looking CF, normocephalic and atraumatic) Eyes: non-icteric ENT: oropharynx moist, other (ETT 23 cm MARTHA) Neck: supple, no lymphadenopathy, no JVD, other (no thyromegaly) Effort: mildly labored Ascultation: Bilateral: diminished breath sounds, rales Percussion: Bilateral: not dull Cardiovascular: regular rate and rhythm Gastrointestinal: normoactive bowel sounds, soft, non-tender, non-distended Integumentary: normal Extremities: no cyanosis, no edema, no ischemia or petechiae Neurologic: non-focal exam (grossly), unable to assess (encephalopathic) Psychiatric: other (unable to assess) CBC and BMP: 08/16/18 05:38 08/18/18 04:10 ABG, PT/INR, D-dimer: ABG POC ABG pH 7.499 (7.35-7.45) H 08/18/18 03:28 POC ABG pCO2 34.7 (35-45) L 08/16/18 01:41 POC ABG pO2 86 (80-105) 08/18/18 03:28 POC ABG HCO3 19.4 (22-26 mml/L) 08/18/18 03:28 POC ABG Total CO2 20 (23-27mmol/L) 08/18/18 03:28 POC ABG O2 Sat 98 08/18/18 03:28 PT/INR, D-dimer D-Dimer 2768.33 ng/mlDDU (0-234) H 08/15/18 18:31 Abnormal lab findings: Abnormal Labs 08/15/18 08/15/18 08/15/18 17:52 17:52 17:52 WBC 12.7 H RBC 3.25 L Hgb Hct Seg Neuts % (Manual) Lymphocytes % (Manual) 6.0 L Nucleated RBC % Lymphocytes # (Manual) 0.8 L D-Dimer POC ABG pH POC ABG pCO2 POC ABG pO2 VBG pH Sodium Potassium 3.4 L Chloride 94.6 L Carbon Dioxide 17 L BUN 67 H Creatinine 3.5 H Glucose 131 H Hemoglobin A1c Lactic Acid 5.20 H* Calcium 7.6 L Phosphorus AST 887 H ALT 316 H Troponin T Total Protein Albumin 3.1 L Triglycerides LDL Cholesterol Direct HDL Cholesterol Urine WBC (Auto) Salicylates Acetaminophen 08/15/18 08/15/18 08/15/18 18:11 18:19 18:31 WBC RBC Hgb Hct Seg Neuts % (Manual) Lymphocytes % (Manual) Nucleated RBC % Lymphocytes # (Manual) D-Dimer 2768.33 H POC ABG pH 7.173 L POC ABG pCO2 47.8 H POC ABG pO2 177 H VBG pH 7.187 L* Sodium Potassium Chloride Carbon Dioxide BUN Creatinine Glucose Hemoglobin A1c Lactic Acid Calcium Phosphorus AST ALT Troponin T Total Protein Albumin Triglycerides LDL Cholesterol Direct HDL Cholesterol Urine WBC (Auto) Salicylates Acetaminophen 08/15/18 08/15/18 08/15/18 18:31 19:14 19:14 WBC RBC Hgb Hct Seg Neuts % (Manual) Lymphocytes % (Manual) Nucleated RBC % Lymphocytes # (Manual) D-Dimer POC ABG pH POC ABG pCO2 POC ABG pO2 VBG pH Sodium Potassium Chloride Carbon Dioxide BUN Creatinine Glucose Hemoglobin A1c Lactic Acid 2.70 H* Calcium Phosphorus AST ALT Troponin T 0.454 H* Total Protein Albumin Triglycerides 356 H LDL Cholesterol Direct 4 L HDL Cholesterol 10 L Urine WBC (Auto) Salicylates < 0.3 L Acetaminophen 08/15/18 08/15/18 08/15/18 19:14 19:15 23:09 WBC RBC Hgb Hct Seg Neuts % (Manual) Lymphocytes % (Manual) Nucleated RBC % Lymphocytes # (Manual) D-Dimer POC ABG pH POC ABG pCO2 POC ABG pO2 VBG pH Sodium Potassium Chloride Carbon Dioxide BUN Creatinine Glucose Hemoglobin A1c Lactic Acid 3.20 H* Calcium Phosphorus AST ALT Troponin T Total Protein Albumin Triglycerides LDL Cholesterol Direct HDL Cholesterol Urine WBC (Auto) 17.0 H Salicylates Acetaminophen < 5.0 L 08/15/18 08/16/18 08/16/18 23:09 01:41 05:38 WBC RBC 3.07 L Hgb 9.8 L Hct 28.7 L Seg Neuts % (Manual) 84.0 H Lymphocytes % (Manual) 6.0 L Nucleated RBC % 4.0 H Lymphocytes # (Manual) 0.5 L D-Dimer POC ABG pH 7.323 L POC ABG pCO2 34.7 L POC ABG pO2 78 L VBG pH Sodium Potassium Chloride Carbon Dioxide BUN Creatinine Glucose Hemoglobin A1c 6.4 H Lactic Acid Calcium Phosphorus AST ALT Troponin T Total Protein Albumin Triglycerides LDL Cholesterol Direct HDL Cholesterol Urine WBC (Auto) Salicylates Acetaminophen 08/16/18 08/16/18 08/17/18 05:38 22:43 03:42 WBC RBC Hgb Hct Seg Neuts % (Manual) Lymphocytes % (Manual) Nucleated RBC % Lymphocytes # (Manual) D-Dimer POC ABG pH POC ABG pCO2 POC ABG pO2 VBG pH Sodium Potassium 2.9 L* 3.1 L 2.9 L* Chloride 108.8 H 111.9 H Carbon Dioxide 17 L 19 L 21 L BUN 62 H 40 H 33 H Creatinine 2.0 H Glucose 139 H 145 H Hemoglobin A1c Lactic Acid Calcium 7.8 L 8.3 L Phosphorus 1.50 L AST 619 H ALT 353 H Troponin T Total Protein 6.1 L Albumin 2.8 L Triglycerides LDL Cholesterol Direct HDL Cholesterol Urine WBC (Auto) Salicylates Acetaminophen 08/17/18 08/17/18 08/18/18 11:02 16:42 03:28 WBC RBC Hgb Hct Seg Neuts % (Manual) Lymphocytes % (Manual) Nucleated RBC % Lymphocytes # (Manual) D-Dimer POC ABG pH 7.483 H 7.499 H POC ABG pCO2 POC ABG pO2 VBG pH Sodium 147 H Potassium 3.2 L Chloride 115.8 H Carbon Dioxide BUN 23 H Creatinine Glucose 121 H Hemoglobin A1c Lactic Acid Calcium 8.1 L Phosphorus 2.30 L D AST ALT Troponin T Total Protein Albumin Triglycerides LDL Cholesterol Direct HDL Cholesterol Urine WBC (Auto) Salicylates Acetaminophen 08/18/18 04:10 WBC RBC Hgb Hct Seg Neuts % (Manual) Lymphocytes % (Manual) Nucleated RBC % Lymphocytes # (Manual) D-Dimer POC ABG pH POC ABG pCO2 POC ABG pO2 VBG pH Sodium 147 H Potassium 3.3 L Chloride 111.9 H Carbon Dioxide BUN 21 H Creatinine Glucose 113 H Hemoglobin A1c Lactic Acid Calcium Phosphorus 1.50 L D AST ALT Troponin T Total Protein Albumin Triglycerides LDL Cholesterol Direct HDL Cholesterol Urine WBC (Auto) Salicylates Acetaminophen Chest x-ray: pending Allied health notes reviewed: nursing
[2018-08-18] MEDS ORDERED: DIFLUCAN IV ONE (11:46)
[2018-08-18] MEDS ORDERED: VIAFLEX EMPTY CONTAINER IV ONE (11:46)
--- NOTE | 2018-08-18 12:29 | Consultation ---
History of Present Illness - Reason for Consult Consult date: 08/18/18 Yeast in blood Requesting physician: ROSALINE MCQUEEN - History of Present Illness The patient is a 68-year-old female with COPD, arthritis, history of multiple spinal surgeries was brought to the emergency room on 08/15/2018 with altered mental status. She was noted to be hypoxic, tachypneic and was intubated in the emergency room. She was also hypotensive requiring a right IJ central line placement and admission to the ICU. Chest x-ray showed right-sided diffuse airspace opacities, empiric antibiotics were started. Blood cultures done on admission grew yeast and hence infectious diseases was consulted today. Patient is intubated, in ICU. Not on pressors. Had a fever of 103F today. Unable to provide history, history obtained by chart review. Patient's was called on the listed phone number, left voice mail for him to call us back. Review of Systems: unable to obtain due to vent, AMS. Past History Past Medical History: COPD Past Surgical History: Other (Neck and back surgery) Social history: , lives with family, full code Family history: other (unable to obtain, no family at bedside) Medications and Allergies Allergies Allergy/AdvReac Type Severity Reaction Status Date / Time No Known Allergies Allergy Unverified 08/15/18 16:49 Home Medications Medication Instructions Recorded Confirmed Last Taken Type Carvedilol 6.25 mg PO BID 08/15/18 08/15/18 Unknown History DULoxetine 60 mg PO QDAY 08/15/18 08/15/18 Unknown History Gabapentin 600 mg PO Q6HR PRN 08/15/18 08/15/18 Unknown History Methylphenidate 5 mg PO TID 08/15/18 08/15/18 Unknown History Morphabond ER 60 mg PO Q12HR 08/15/18 08/15/18 Unknown History Pravastatin Sodium 10 mg PO QDAY 08/15/18 08/15/18 Unknown History Tizanidine HCl 4 mg PO Q12HR 08/15/18 08/15/18 Unknown History oxyCODONE /ACETAMINOPHEN 7.5 - 325 mg PO Q8HR 08/15/18 08/15/18 Unknown History Active Meds: Active Medications Acetaminophen (Tylenol) 650 mg PO Q4H PRN PRN Reason: Pain MILD(1-3)/Fever >100.5/[facility] Last Admin: 08/18/18 08:11 Dose: 650 mg Documented by: Acetaminophen (Tylenol) 650 mg FL Q4H PRN PRN Reason: Pain, Mild (1-3) Last Admin: 08/16/18 17:11 Dose: 650 mg Documented by: Albuterol (Proventil) 2.5 mg IH Q3HRT PRN PRN Reason: Shortness Of Breath Albuterol/Ipratropium (Duoneb *Not For Prn Use*) 1 ampul IH QIDRT [facility] Last Admin: 08/18/18 12:08 Dose: 1 ampul Documented by: Lipase/Protease/Amylase (Pancresam Dr 10,500 Unit) 1 each FEEDTUBE PRN PRN PRN Reason: For Clogged Feeding Tube Carvedilol (Coreg) 6.25 mg PO BID [facility] Last Admin: 08/18/18 10:04 Dose: 6.25 mg Documented by: Duloxetine HCl (Cymbalta) 60 mg PO QDAY [facility] Last Admin: 08/18/18 09:14 Dose: Not Given Documented by: Enoxaparin Sodium (Lovenox) 40 mg SUB-Q QDAY@2200 [facility] Last Admin: 08/17/18 21:34 Dose: 40 mg Documented by: Famotidine (Pepcid) 20 mg IV BID [facility] Last Admin: 08/18/18 10:04 Dose: 20 mg Documented by: Fentanyl (Sublimaze) 50 mcg IV Q10MIN PRN PRN Reason: ANALGESIA Last Admin: 08/17/18 13:36 Dose: 50 mcg Documented by: Hydromorphone HCl (Dilaudid) 0.5 mg IV Q3H PRN PRN Reason: Pain , Severe (7-10) Hydrophilic Ointment (Vaseline Lip Therapy) 1 applic TP Q2HR PRN PRN Reason: Dry Lips Fentanyl Citrate (Fentanyl Drip Premix) 2,000 mcg in 100 mls @ 4.082 mls/hr IV TITR [facility]; Protocol Last Admin: 08/18/18 06:33 Dose: 2 mcg/kg/hr, 8.165 mls/hr Documented by: Propofol (Diprivan 10 Mg/Ml) 1,000 mg in 100 mls @ 2.449 mls/hr IV TITR [facility]; Protocol Last Titration: 08/18/18 01:30 Dose: 10 mcg/kg/min, 4.899 mls/hr Documented by: Vancomycin HCl 1,250 mg/ (Sodium Chloride) 275 mls @ 166.667 mls/hr IV Q24HR [facility] Last Admin: 08/18/18 10:04 Dose: 166.667 mls/hr Documented by: Piperacillin Sod/Tazobactam Sod (Zosyn/Ns 4.5gm/100ml) 4.5 gm in 100 mls @ 200 mls/hr IV Q8HR [facility]; Protocol Last Admin: 08/18/18 06:33 Dose: 200 mls/hr Documented by: Norepinephrine (Levophed Drip 4 Mg/Ns 250 Ml) 4 mg in 250 mls @ 7.5 mls/hr IV TITR [facility]; Protocol Potassium Phosphate 45 mmol/ (Sodium Chloride) 515 mls @ 85 mls/hr IV ONCE ONE Stop: 08/18/18 12:44 Last Admin: 08/18/18 08:10 Dose: 85 mls/hr Documented by: Fluconazole 800 mg/ (Miscellaneous Information) 400 mls @ 100 mls/hr IV ONCE ONE Stop: 08/18/18 15:45 Metoclopramide HCl (Reglan) 5 mg IV Q6H PRN PRN Reason: Nausea And Vomiting Ondansetron HCl (Zofran) 4 mg IV Q8H PRN PRN Reason: Nausea And Vomiting Simple Syrup (Simple Syrup) 15 ml FEEDTUBE PRN PRN PRN Reason: Hypoglycemia Simple Syrup (Simple Syrup) 30 ml FEEDTUBE PRN PRN PRN Reason: Hypoglycemia Sodium Bicarbonate (Sodium Bicarbonate) 325 mg FEEDTUBE PRN PRN PRN Reason: For Clogged Feeding Tube Sodium Chloride (Sodium Chloride Flush Syringe 10 Ml) 10 ml IV BID [facility] Last Admin: 08/17/18 21:37 Dose: 10 ml Documented by: Sodium Chloride (Sodium Chloride Flush Syringe 10 Ml) 10 ml IV PRN PRN PRN Reason: LINE FLUSH Physical Examination - Physical Exam Narrative exam: Physical Exam: Constitutional: sedated, intubated Head, Ears, Nose: Normocephalic, atraumatic. External ears, nose normal Eyes: Conjunctivae/corneas clear. No icterus. No ptosis. Neck: Supple, no meningeal signs Oral: intubated Cardiovascular: S1, S2 normal. Respiratory: Good air entry, clear to auscultation bilaterally GI: Soft, non-tender; bowel sounds normal. No peritoneal signs Musculoskeletal: No pedal edema, no cyanosis. Skin: No rash or abscess Hem/Lymphatic: No palpable cervical or supraclavicular nodes. No lymphangitis Psych: no agitation Neurological: sedated, intubated, on vent - Constitutional Vitals: Vital Signs Temp Pulse Resp BP Pulse Ox 103.0 F H 80 36 H 158/71 96 08/18/18 07:41 08/18/18 12:09 08/18/18 12:09 08/18/18 12:09 08/18/18 12:09 Temperature -Last 24 Hours Temperature 103.0 F Temperature 98.9 F Temperature 100 F Temperature 99.1 F Temperature 99.3 F Temperature 102.1 F Results - Labs CBC & Chem 7: 08/16/18 05:38 08/18/18 04:10 Labs: Abnormal lab results 08/17/18 08/18/18 08/18/18 Range/Units 16:42 03:28 04:10 POC ABG pH 7.499 H (7.35-7.45) Sodium 147 H 147 H (137-145) mmol/L Potassium 3.2 L 3.3 L (3.6-5.0) mmol/L Chloride 115.8 H 111.9 H (98-107) mmol/L BUN 23 H 21 H (7-17) mg/dL Glucose 121 H 113 H (65-100) mg/dL Calcium 8.1 L (8.4-10.2) mg/dL Phosphorus 2.30 L D 1.50 L D (2.5-4.5) mg/dL - Imaging and Cardiology Chest x-ray: report reviewed, image reviewed (right sided reticulonodular infiltrates) CT Scan - head: report reviewed, image reviewed (right maxillary sinusitis, no acute intracranial process) Assessment and Plan Cultures: 08/15/2018 blood culture: One set positive for yeast 08/15/2018 sputum culture: Escherichia coli, wade susceptible A/P: 68-year-old female with COPD, arthritis, history of multiple spinal surgeries was brought to the emergency room on 08/15/2018 with altered mental status: 1) Sepsis: Likely secondary to fungemia. 2) Fungemia: Blood cultures done on admission growing yeast in one set (probably Camryn but could be other yeast). Etiology is unclear. Patient without any history of indwelling PICC line, TPN or immunocompromised status. She is unable to provide any history, left voice mail on 's phone to call us back. We will give fluconazole 800 mg loading dose followed by 400 mg daily. Await ID and susceptibility. We will recommend checking HIV, serum cryptococcal antigen. We will also recommend obtaining CT chest without contrast to evaluate the right- sided pneumonia especially given concerns for chronicity. We will recommend CT abdomen and pelvis with IV contrast to evaluate for possibility of renal source, fungal ball etc. UA only showed 17 WBCs. 3) Acute renal failure: On admission: Creatinine improved. Nephrology following. 4) Transaminitis: Likely from shock liver. Monitor. 5) Right lung pneumonia: Causing acute respiratory failure. Chest x-ray shows reticular nodular infiltrates, some of these appear to be chronic and would also present in 2011. We'll recommend CT chest without contrast. 6) Right maxillary sinusitis: Continue ceftriaxone. 7) Acute encephalopathy: Likely multifactorial. CT head unremarkable for acute intracranial process. Recs: IV fluconazole 800 mg loading, followed by [address] chest without contrast CT abdomen and pelvis with IV contrast HIV ordered Serum cryptococcal antigen ordered Repeat blood cultures ordered Follow-up blood culture ID and sensitivity TTE ordered Of note, the RIJ central line will need removal at some point since it was placed during active fungemia D/W Dr. Quesada from ICU. MD Britton [facility] C: [phone] O: [phone] F: [phone]
[2018-08-18] MEDS ORDERED: NACL 0.45% 1,000 ML IV SCH (16:00)
--- NOTE | 2018-08-18 16:32 | Cat Scan Report ---
PROCEDURE: CT angiogram chest with contrast. TECHNIQUE: Computerized tomographic angiography of the chest was performed after the IV injection of iodinated nonionic contrast including image processing. The image data was postprocessed using 2-di mensional multiplanar reformatted (MPR) and 3-dimensional (MIP and/or volume rendered) techniques. Au tomated exposure control, adjustment of mA and/or kV according to patient size, or iterative reconstr uction dose optimization techniques were utilized. CT DOSE LENGTH PRODUCT: 4710.05 mGycm HISTORY: Acute Hypoxemic Rresp failure; Pneumonia; fungemia . COMPARISONS: None. FINDINGS: The technologist has included axial images of the abdomen and pelvis. There is a separate r equisition for those studies. I will limit my review to the images of the chest. There is respiratory motion artifact on the majority of the images. The trachea and central bronchi a re grossly normal. There is an endotracheal tube that terminates just above the amando. There is some hazy opacity in the majority of the right lung. There is more dense consolidation located posteriorl y in both lower lobes. This could represent pneumonia or pulmonary edema. There are no pleural effusi ons. The thoracic aorta has a normal caliber without evidence of dissection. The pulmonary arteries e nhance normally. There are no definite signs of pulmonary embolism. There are a few small and medium sized mediastinal lymph nodes. The largest lymph nodes are in the right paratracheal region. These co uld represent inflammatory or neoplastic lymph nodes. Follow-up imaging is recommended. The heart siz e is mildly enlarged. The adrenal glands appear normal in size. The thoracic skeleton appears intact. IMPRESSION: Limited study due to respiratory motion artifact. No evidence of pulmonary embolism. Abn ormal bilateral lung consolidation which may represent pulmonary edema or pneumonia. Mild cardiomegal y. Indeterminant mediastinal lymph nodes. This document is electronically signed by Joaquin Rodriguez MD., August 18 2018 04:30:06 PM ET
--- NOTE | 2018-08-18 17:01 | Cat Scan Report ---
PROCEDURE: CT ABDOMEN PELVIS W CON TECHNIQUE: CT of the abdomen and pelvis with intravenous contrast HISTORY: Fungemia, eval abdominal source of infection COMPARISONS: Correlated with today's CT chest FINDINGS: Extensive bilateral lower lobe pulmonary infiltrates with consolidation are further described on toda y's CT chest. There is an NG tube distal and at the gastric antrum No focal abnormality is identified in the liver parenchyma. Spleen is normal in size and attenuation. Adrenal glands are unremarkable Kidneys demonstrate symmetric contrast enhancement. Noted is a 3.7 cm left renal cyst Rectal tube is noted. There is a Dodge within the urinary bladder which is decompressed. No evidence for small bowel distention. Oral contrast material extends to the cecum. The appendix is identified and is unremarkable. Left hip prosthesis noted. There is extensive degenerative change throughout the lumbar spine. IMPRESSION: Extensive bilateral lower lobe pulmonary infiltrates Rectal tube and Dodge catheter noted. NG tube at gastric antrum. Left hip prosthesis Extensive degenerative changes noted lumbar spine . This document is electronically signed by Mylse Mckeon MD., August 18 2018 04:58:50 PM ET
[2018-08-18] MEDS: SODIUM CHLORIDE FLUSH SYRINGE 10 ML IV SCH (18:44)
[2018-08-18] MEDS: BROVANA NEBU IH SCH (19:21)
[2018-08-18] MEDS: PULMICORT IH SCH (19:22)
[2018-08-18] MEDS: LOVENOX SUB-Q SCH (21:51)
[2018-08-18] MEDS: SODIUM CHLORIDE FLUSH SYRINGE 10 ML IV PRN (21:52)
[2018-08-19] MEDS: ZOSYN/NS 4.5GM/100ML 4.5 GM/100 ML VIAL IV SCH (05:14)
[2018-08-19] MEDS: TYLENOL PO PRN ×3 (05:15→17:33)
[2018-08-19 05:35] LABS: BUN/Creatinine Ratio 27; Blood Urea Nitrogen 19 mg/dL (7-17); Calcium 7.8 mg/dL (8.4-10.2); Hemolysis Index 0
[2018-08-19] MEDS: fentaNYL DRIP Premix 2,000 MCG/100 ML BAG IV SCH ×2 (05:45→17:30)
--- NOTE | 2018-08-19 06:47 | Progress Note ---
Assessment and Plan Acute hypoxic-hypercapnic respiratory failure on MVS h/o COPD Acute encephalopathy( toxic-metabolic) Hypokalemia Acute kidney injury h/o Chronic narcotic dependence Aspiration pneumonia/CAP Hypokalemia -Continue full MVS -Wean supplemental oxygen to keep O2 sats 88-90% -Lung protective strategies -Oxygen restrictive strategies -Daily ABGs/CXR -Antibiotics for CAP -Follow tracheal aspirate cultures and adjust antibiotic therapy based on MURTAZA/ID -Get procalcitonin to help guide antibiotic therapy. -VAP bundle addressed -Volume resuscitation. Monitor renal inidces -Daily SAT's & SBT's -Sedation target for RASS 0 to -1 -Stress ulcer prophylaxis -VTE prophylaxis -Nutrition consult for tube feedings -Aspiration precautions -Accuchecks with glycemic control. Target glucose of 140-180 mg/dL -Continue bronchodilators with pulmonary hygiene per RT -Maintenance of sleep -wake cycle -Mobility as tolerated by hemodynamics -Follow up lactic acid levels -Influenza and pneumonia vaccination per protocol Subjective Date of service: 08/18/18 Principal diagnosis: Sepsis/Resp failure Interval history: Same condition Objective - Constitutional Vitals: Vital Signs - 12hr 08/18/18 08/18/18 08/18/18 18:51 19:00 19:11 Temperature Pulse Rate 83 81 83 Pulse Rate [ Anterior Bilateral Throughout] Respiratory 36 H 35 H 36 H Rate Respiratory Rate [Anterior Bilateral Throughout] Blood Pressure 168/73 160/76 160/76 O2 Sat by Pulse 96 93 97 Oximetry 08/18/18 08/18/18 08/18/18 19:21 19:22 19:24 Temperature Pulse Rate 84 82 Pulse Rate [ 85 Anterior Bilateral Throughout] Respiratory 36 H Rate Respiratory 35 H Rate [Anterior Bilateral Throughout] Blood Pressure 160/76 160/70 O2 Sat by Pulse 95 95 Oximetry 08/18/18 08/18/18 08/18/18 19:31 19:37 19:41 Temperature Pulse Rate 80 96 H Pulse Rate [ 87 Anterior Bilateral Throughout] Respiratory 34 H 34 H Rate Respiratory 35 H Rate [Anterior Bilateral Throughout] Blood Pressure 160/76 160/76 O2 Sat by Pulse 97 95 Oximetry 08/18/18 08/18/18 08/18/18 19:44 19:51 20:00 Temperature 98.8 F Pulse Rate 78 76 Pulse Rate [ Anterior Bilateral Throughout] Respiratory 33 H 34 H Rate Respiratory Rate [Anterior Bilateral Throughout] Blood Pressure 160/76 146/58 O2 Sat by Pulse 94 93 Oximetry 08/18/18 08/18/18 08/18/18 20:11 20:21 20:31 Temperature Pulse Rate 79 74 74 Pulse Rate [ Anterior Bilateral Throughout] Respiratory 33 H 31 H 32 H Rate Respiratory Rate [Anterior Bilateral Throughout] Blood Pressure 146/58 146/58 146/58 O2 Sat by Pulse 94 92 93 Oximetry 08/18/18 08/18/18 08/18/18 20:41 20:51 21:00 Temperature Pulse Rate 77 78 77 Pulse Rate [ Anterior Bilateral Throughout] Respiratory 31 H 27 H 32 H Rate Respiratory Rate [Anterior Bilateral Throughout] Blood Pressure 146/58 146/58 146/58 O2 Sat by Pulse 94 95 95 Oximetry 08/18/18 08/18/18 08/18/18 21:11 21:21 21:31 Temperature Pulse Rate 72 78 77 Pulse Rate [ Anterior Bilateral Throughout] Respiratory 30 H 31 H 32 H Rate Respiratory Rate [Anterior Bilateral Throughout] Blood Pressure 150/54 150/54 150/54 O2 Sat by Pulse 95 97 95 Oximetry 08/18/18 08/18/18 08/18/18 21:41 21:50 21:51 Temperature Pulse Rate 76 75 74 Pulse Rate [ Anterior Bilateral Throughout] Respiratory 32 H 30 H Rate Respiratory Rate [Anterior Bilateral Throughout] Blood Pressure 150/54 150/54 150/54 O2 Sat by Pulse 94 94 Oximetry 08/18/18 08/18/18 08/18/18 22:00 22:11 22:21 Temperature Pulse Rate 80 77 76 Pulse Rate [ Anterior Bilateral Throughout] Respiratory 32 H 31 H 32 H Rate Respiratory Rate [Anterior Bilateral Throughout] Blood Pressure 167/81 167/81 150/54 O2 Sat by Pulse 94 95 94 Oximetry 08/18/18 08/18/18 08/18/18 22:31 22:41 22:51 Temperature Pulse Rate 79 78 77 Pulse Rate [ Anterior Bilateral Throughout] Respiratory 33 H 35 H 32 H Rate Respiratory Rate [Anterior Bilateral Throughout] Blood Pressure 150/54 150/54 167/81 O2 Sat by Pulse 94 94 94 Oximetry 08/18/18 08/18/18 08/18/18 23:00 23:01 23:11 Temperature Pulse Rate 77 77 71 Pulse Rate [ Anterior Bilateral Throughout] Respiratory 33 H 33 H 31 H Rate Respiratory Rate [Anterior Bilateral Throughout] Blood Pressure 142/70 142/70 142/70 O2 Sat by Pulse 92 95 94 Oximetry 08/18/18 08/18/18 08/18/18 23:15 23:21 23:31 Temperature Pulse Rate 76 73 67 Pulse Rate [ Anterior Bilateral Throughout] Respiratory 32 H 32 H Rate Respiratory Rate [Anterior Bilateral Throughout] Blood Pressure 142/70 142/70 142/70 O2 Sat by Pulse 95 96 94 Oximetry 08/18/18 08/18/18 08/18/18 23:41 23:51 23:53 Temperature 100.5 F H Pulse Rate 72 72 Pulse Rate [ Anterior Bilateral Throughout] Respiratory 33 H 32 H Rate Respiratory Rate [Anterior Bilateral Throughout] Blood Pressure 142/70 142/70 O2 Sat by Pulse 95 95 Oximetry 08/19/18 08/19/18 08/19/18 00:00 00:11 00:21 Temperature Pulse Rate 72 71 69 Pulse Rate [ Anterior Bilateral Throughout] Respiratory 32 H 31 H 32 H Rate Respiratory Rate [Anterior Bilateral Throughout] Blood Pressure 135/62 135/62 135/62 O2 Sat by Pulse 94 95 94 Oximetry 08/19/18 08/19/18 08/19/18 00:31 00:41 00:51 Temperature Pulse Rate 70 70 70 Pulse Rate [ Anterior Bilateral Throughout] Respiratory 30 H 32 H 31 H Rate Respiratory Rate [Anterior Bilateral Throughout] Blood Pressure 135/62 135/62 135/62 O2 Sat by Pulse 96 94 94 Oximetry 08/19/18 08/19/18 08/19/18 01:01 01:11 01:21 Temperature Pulse Rate 69 68 70 Pulse Rate [ Anterior Bilateral Throughout] Respiratory 32 H 32 H 31 H Rate Respiratory Rate [Anterior Bilateral Throughout] Blood Pressure 119/51 119/51 119/51 O2 Sat by Pulse 93 94 95 Oximetry 08/19/18 08/19/18 08/19/18 01:31 01:41 01:51 Temperature Pulse Rate 72 71 71 Pulse Rate [ Anterior Bilateral Throughout] Respiratory 32 H 32 H 31 H Rate Respiratory Rate [Anterior Bilateral Throughout] Blood Pressure 119/51 119/51 119/51 O2 Sat by Pulse 94 94 94 Oximetry 08/19/18 08/19/18 08/19/18 02:00 02:11 02:21 Temperature Pulse Rate 76 69 74 Pulse Rate [ Anterior Bilateral Throughout] Respiratory 30 H 31 H 37 H Rate Respiratory Rate [Anterior Bilateral Throughout] Blood Pressure 119/51 125/57 125/57 O2 Sat by Pulse 94 94 94 Oximetry 08/19/18 08/19/18 08/19/18 02:31 02:41 02:51 Temperature Pulse Rate 71 73 71 Pulse Rate [ Anterior Bilateral Throughout] Respiratory 32 H 32 H 32 H Rate Respiratory Rate [Anterior Bilateral Throughout] Blood Pressure 125/57 125/57 125/57 O2 Sat by Pulse 95 95 93 Oximetry 08/19/18 08/19/18 08/19/18 03:00 03:11 03:21 Temperature Pulse Rate 69 69 71 Pulse Rate [ Anterior Bilateral Throughout] Respiratory 31 H 31 H 34 H Rate Respiratory Rate [Anterior Bilateral Throughout] Blood Pressure 138/62 138/62 138/62 O2 Sat by Pulse 91 93 95 Oximetry 08/19/18 08/19/18 08/19/18 03:31 03:41 03:51 Temperature Pulse Rate 74 75 74 Pulse Rate [ Anterior Bilateral Throughout] Respiratory 33 H 34 H 33 H Rate Respiratory Rate [Anterior Bilateral Throughout] Blood Pressure 138/62 138/62 138/62 O2 Sat by Pulse 96 94 95 Oximetry 08/19/18 08/19/18 08/19/18 04:00 04:11 04:21 Temperature Pulse Rate 76 74 80 Pulse Rate [ Anterior Bilateral Throughout] Respiratory 33 H 33 H 35 H Rate Respiratory Rate [Anterior Bilateral Throughout] Blood Pressure 138/62 142/67 142/67 O2 Sat by Pulse 96 95 96 Oximetry 08/19/18 04:31 Temperature Pulse Rate 80 Pulse Rate [ Anterior Bilateral Throughout] Respiratory 34 H Rate Respiratory Rate [Anterior Bilateral Throughout] Blood Pressure 142/67 O2 Sat by Pulse 96 Oximetry General appearance: Present: no acute distress, well-nourished - EENT Eyes: PERRL, EOM intact ENT: hearing intact, clear oral mucosa Ears: bilateral: normal - Neck Neck: supple, normal ROM - Respiratory Respiratory effort: normal Respiratory: bilateral: CTA - Breasts Breasts: normal - Cardiovascular Rhythm: regular Heart Sounds: Present: S1 & S2. Absent: gallop, rub Extremities: pulses intact, No edema, normal color, Full ROM - Gastrointestinal General gastrointestinal: Present: soft, non-tender, non-distended, normal bowel sounds - Genitourinary Female genitourinary: normal - Integumentary Integumentary: clear, warm, dry - Musculoskeletal Musculoskeletal: 1, strength equal bilaterally - Neurologic Neurologic: moves all extremities - Psychiatric Psychiatric: memory intact, appropriate mood/affect, intact judgment & insight - Labs CBC & Chem 7: 08/16/18 05:38 08/19/18 04:15 Labs: Abnormal lab results 08/18/18 08/18/18 08/18/18 Range/Units 13:39 13:39 16:51 POC ABG pH 7.454 H (7.35-7.45) POC ABG pO2 65 L (80-105) Sodium (137-145) mmol/L Potassium (3.6-5.0) mmol/L Chloride (98-107) mmol/L BUN (7-17) mg/dL Glucose (65-100) mg/dL Calcium (8.4-10.2) mg/dL Troponin T 0.317 H* D (0.00-0.029) ng/mL C-Reactive Protein 10.70 H (0.00-1.30) mg/dL 08/19/18 08/19/18 Range/Units 03:47 04:15 POC ABG pH 7.482 H (7.35-7.45) POC ABG pO2 (80-105) Sodium 154 H (137-145) mmol/L Potassium 3.3 L (3.6-5.0) mmol/L Chloride 115.1 H (98-107) mmol/L BUN 19 H (7-17) mg/dL Glucose 117 H (65-100) mg/dL Calcium 7.8 L (8.4-10.2) mg/dL Troponin T (0.00-0.029) ng/mL C-Reactive Protein (0.00-1.30) mg/dL
[2018-08-19] MEDS: PULMICORT IH SCH ×2 (07:51→19:47)
[2018-08-19] MEDS: DUONEB *Not for PRN Use IH SCH ×4 (07:51→19:46)
[2018-08-19] MEDS: BROVANA NEBU IH SCH ×2 (07:51→19:47)
--- NOTE | 2018-08-19 08:52 | Progress Note ---
Assessment and Plan 1. Acute kidney injury: Likely hemodynamic CHANDANA in the setting of volume depletion. Renal function is better. Monitor renal function. Avoid nephrotoxic agents. Meds dosage based on GFR. 2. FEN: Hypokalemia, replete K. Hypernatremia, IV D5W and water flushes. Metabolic acidosis, improved. 3. Acute encephalopathy. 4. Respiratory failure: On vent. 5. Right lung pneumonia. 6. Shock Liver. D/w her at the bedside. Subjective Date of service: 08/19/18 Principal diagnosis: Sepsis/Resp failure Interval history: Patient was seen and examined at the bedside. Objective - Vital Signs Vital signs: Vital Signs - 12hr 08/18/18 08/18/18 08/18/18 21:00 21:11 21:21 Temperature Pulse Rate 77 72 78 Respiratory 32 H 30 H 31 H Rate Blood Pressure 146/58 150/54 150/54 O2 Sat by Pulse 95 95 97 Oximetry 08/18/18 08/18/18 08/18/18 21:31 21:41 21:50 Temperature Pulse Rate 77 76 75 Respiratory 32 H 32 H Rate Blood Pressure 150/54 150/54 150/54 O2 Sat by Pulse 95 94 Oximetry 08/18/18 08/18/18 08/18/18 21:51 22:00 22:11 Temperature Pulse Rate 74 80 77 Respiratory 30 H 32 H 31 H Rate Blood Pressure 150/54 167/81 167/81 O2 Sat by Pulse 94 94 95 Oximetry 08/18/18 08/18/18 08/18/18 22:21 22:31 22:41 Temperature Pulse Rate 76 79 78 Respiratory 32 H 33 H 35 H Rate Blood Pressure 150/54 150/54 150/54 O2 Sat by Pulse 94 94 94 Oximetry 08/18/18 08/18/18 08/18/18 22:51 23:00 23:01 Temperature Pulse Rate 77 77 77 Respiratory 32 H 33 H 33 H Rate Blood Pressure 167/81 142/70 142/70 O2 Sat by Pulse 94 92 95 Oximetry 08/18/18 08/18/18 08/18/18 23:11 23:15 23:21 Temperature Pulse Rate 71 76 73 Respiratory 31 H 32 H Rate Blood Pressure 142/70 142/70 142/70 O2 Sat by Pulse 94 95 96 Oximetry 08/18/18 08/18/18 08/18/18 23:31 23:41 23:51 Temperature Pulse Rate 67 72 72 Respiratory 32 H 33 H 32 H Rate Blood Pressure 142/70 142/70 142/70 O2 Sat by Pulse 94 95 95 Oximetry 08/18/18 08/19/18 08/19/18 23:53 00:00 00:11 Temperature 100.5 F H Pulse Rate 72 71 Respiratory 32 H 31 H Rate Blood Pressure 135/62 135/62 O2 Sat by Pulse 94 95 Oximetry 08/19/18 08/19/18 08/19/18 00:21 00:31 00:41 Temperature Pulse Rate 69 70 70 Respiratory 32 H 30 H 32 H Rate Blood Pressure 135/62 135/62 135/62 O2 Sat by Pulse 94 96 94 Oximetry 08/19/18 08/19/18 08/19/18 00:51 01:01 01:11 Temperature Pulse Rate 70 69 68 Respiratory 31 H 32 H 32 H Rate Blood Pressure 135/62 119/51 119/51 O2 Sat by Pulse 94 93 94 Oximetry 08/19/18 08/19/18 08/19/18 01:21 01:31 01:41 Temperature Pulse Rate 70 72 71 Respiratory 31 H 32 H 32 H Rate Blood Pressure 119/51 119/51 119/51 O2 Sat by Pulse 95 94 94 Oximetry 08/19/18 08/19/18 08/19/18 01:51 02:00 02:11 Temperature Pulse Rate 71 76 69 Respiratory 31 H 30 H 31 H Rate Blood Pressure 119/51 119/51 125/57 O2 Sat by Pulse 94 94 94 Oximetry 08/19/18 08/19/18 08/19/18 02:21 02:31 02:41 Temperature Pulse Rate 74 71 73 Respiratory 37 H 32 H 32 H Rate Blood Pressure 125/57 125/57 125/57 O2 Sat by Pulse 94 95 95 Oximetry 08/19/18 08/19/18 08/19/18 02:51 03:00 03:11 Temperature Pulse Rate 71 69 69 Respiratory 32 H 31 H 31 H Rate Blood Pressure 125/57 138/62 138/62 O2 Sat by Pulse 93 91 93 Oximetry 08/19/18 08/19/18 08/19/18 03:21 03:31 03:41 Temperature Pulse Rate 71 74 75 Respiratory 34 H 33 H 34 H Rate Blood Pressure 138/62 138/62 138/62 O2 Sat by Pulse 95 96 94 Oximetry 03/22/19 03/22/19 03/22/19 03:51 04:00 04:11 Temperature Pulse Rate 74 76 74 Respiratory 33 H 33 H 33 H Rate Blood Pressure 138/62 138/62 142/67 O2 Sat by Pulse 95 96 95 Oximetry 08/19/18 08/19/18 04:21 04:31 Temperature Pulse Rate 80 80 Respiratory 35 H 34 H Rate Blood Pressure 142/67 142/67 O2 Sat by Pulse 96 96 Oximetry - General Appearance General appearance: well-developed, well-nourished, appears stated age, intubated, other (on vent) EENT: ATNC, PERRL Neck: supple Respiratory: Present: Clear to Ascultation Cardiology: regular, S1S2, no murmurs Gastrointestinal: normoactive bowel sounds, no tenderness, no distended Integumentary: no rash, warm and dry Neurologic: other (not responding) Musculoskeletal: other (no edema) - Lab 08/16/18 05:38 08/19/18 04:15 Most recent lab results Calcium 7.8 mg/dL (8.4-10.2) L 08/19/18 04:15 Phosphorus 2.60 mg/dL (2.5-4.5) D 08/19/18 04:15 Magnesium 1.70 mg/dL (1.7-2.3) 08/19/18 04:15 Medications & Allergies - Medications Allergies/Adverse Reactions: Allergies No Known Allergies Allergy (Unverified 08/15/18 16:49) Home Medications: Home Medications Medication Instructions Recorded Confirmed Last Taken Type Carvedilol 6.25 mg PO BID 08/15/18 08/15/18 Unknown History DULoxetine 60 mg PO QDAY 08/15/18 08/15/18 Unknown History Gabapentin 600 mg PO Q6HR PRN 08/15/18 08/15/18 Unknown History Methylphenidate 5 mg PO TID 08/15/18 08/15/18 Unknown History Morphabond ER 60 mg PO Q12HR 08/15/18 08/15/18 Unknown History Pravastatin Sodium 10 mg PO QDAY 08/15/18 08/15/18 Unknown History Tizanidine HCl 4 mg PO Q12HR 08/15/18 08/15/18 Unknown History oxyCODONE /ACETAMINOPHEN 7.5 - 325 mg PO Q8HR 08/15/18 08/15/18 Unknown History Active Medications: Generic Name Dose Route Start Last Admin Trade Name Freq PRN Reason Stop Dose Admin Acetaminophen 650 mg 08/15/18 22:12 08/19/18 05:15 Tylenol PO 650 mg Q4H PRN Administration Pain MILD(1-3)/Fever >100.5/MONDRAGON Acetaminophen 650 mg 08/16/18 17:01 08/16/18 17:11 Tylenol [place] 650 mg Q4H PRN Administration Pain, Mild (1-3) Albuterol 2.5 mg 08/17/18 17:00 Proventil IH Q3HRT PRN Shortness Of Breath Albuterol/Ipratropium 1 ampul 08/17/18 16:00 08/19/18 07:51 Duoneb *Not For Prn Use* IH 1 ampul QIDRT LAMAR Administration Lipase/Protease/Amylase 1 each 08/17/18 15:55 Pancresam Elizabeth 10,500 Unit FEEDTUBE PRN PRN For Clogged Feeding Tube Arformoterol Tartrate 15 mcg 08/18/18 20:00 08/19/18 07:51 Brovana Nebu IH 15 mcg Q12HRT LAMAR Administration Budesonide 0.5 mg 08/18/18 20:00 08/19/18 07:51 Pulmicort IH 0.5 mg Q12HRT LAMAR Administration Carvedilol 6.25 mg 08/15/18 22:45 08/18/18 21:50 Coreg PO 6.25 mg BID LAMAR Administration Duloxetine HCl 60 mg 08/16/18 10:00 08/18/18 09:14 Cymbalta PO Not Given QDAY LAMAR Enoxaparin Sodium 40 mg 08/17/18 22:00 08/18/18 21:51 Lovenox SUB-Q 40 mg QDAY@2200 LAMAR Administration Famotidine 20 mg 08/19/18 10:00 Pepcid PO BID [facility] Fentanyl 50 mcg 08/15/18 21:55 08/17/18 13:36 Sublimaze IV 50 mcg Q10MIN PRN Administration ANALGESIA Hydromorphone HCl 0.5 mg 08/15/18 22:12 Dilaudid IV Q3H PRN Pain , Severe (7-10) Hydrophilic Ointment 1 applic 08/15/18 21:55 Vaseline Lip Therapy TP Q2HR PRN Dry Lips Fentanyl Citrate 2,000 mcg in 100 mls @ 4.082 mls/hr 08/15/18 22:00 08/19/18 05:45 Fentanyl Drip Premix IV 2 mcg/kg/hr TITR LAMAR 8.165 mls/hr Administration Protocol 1 MCG/KG/HR Propofol 1,000 mg in 100 mls @ 2.449 mls/hr 08/15/18 21:15 08/18/18 16:31 Diprivan 10 Mg/Ml IV 10 mcg/kg/min TITR LAMAR 4.899 mls/hr Administration Protocol 5 MCG/KG/MIN Vancomycin HCl 1,250 mg/ 275 mls @ 166.667 mls/hr 08/17/18 10:00 08/18/18 10:04 Sodium Chloride IV 166.667 mls/hr Q24HR LAMAR Administration Piperacillin Sod/Tazobactam Sod 4.5 gm in 100 mls @ 200 mls/hr 08/17/18 14:00 08/19/18 05:14 Zosyn/Ns 4.5gm/100ml IV 200 mls/hr Q8HR LAMAR Administration Protocol Norepinephrine 4 mg in 250 mls @ 7.5 mls/hr 08/17/18 20:00 Levophed Drip 4 Mg/Ns 250 Ml IV TITR LAMAR Protocol 2 MCG/MIN Fluconazole 200 mls @ 100 mls/hr 08/19/18 10:00 Diflucan IV Q24H LAMAR Protocol Sodium Chloride 1,000 mls @ 50 mls/hr 08/18/18 16:00 08/19/18 05:09 Nacl 0.45% IV 08/20/18 11:59 50 mls/hr DIRECT LAMAR Administration Magnesium Sulfate 4 gm in 100 mls @ 25 mls/hr 08/19/18 09:00 Magnesium Sulfate 4gm/100ml IV 08/19/18 12:59 ONCE ONE Metoclopramide HCl 5 mg 08/15/18 22:50 Reglan IV Q6H PRN Nausea And Vomiting Ondansetron HCl 4 mg 08/15/18 22:12 Zofran IV Q8H PRN Nausea And Vomiting Potassium Chloride 40 meq 08/19/18 09:00 Potassium Chloride FEEDTUBE 08/19/18 09:01 ONCE ONE Simple Syrup 15 ml 08/17/18 15:55 Simple Syrup FEEDTUBE PRN PRN Hypoglycemia Simple Syrup 30 ml 08/17/18 15:55 Simple Syrup FEEDTUBE PRN PRN Hypoglycemia Sodium Bicarbonate 325 mg 08/17/18 15:55 Sodium Bicarbonate FEEDTUBE PRN PRN For Clogged Feeding Tube Sodium Chloride 10 ml 08/16/18 10:00 08/18/18 18:44 Sodium Chloride Flush Syringe 10 Ml IV Not Given BID LAMAR Sodium Chloride 10 ml 08/15/18 22:12 08/18/18 21:52 Sodium Chloride Flush Syringe 10 Ml IV 10 ml PRN PRN Administration LINE FLUSH
[2018-08-19] MEDS ORDERED: POTASSIUM CHLORIDE FEEDTUBE ONE (09:00)
[2018-08-19] MEDS ORDERED: MAGNESIUM SULFATE 4GM/100ML 4 GM/100 ML BAG IV ONE (09:00)
[2018-08-19] MEDS ORDERED: D5W 1,000 ML IV SCH (10:00)
[2018-08-19] MEDS ORDERED: KCL 10MEQ/100ML 10 MEQ/100 ML BAG IV SCH (10:00)
[2018-08-19] MEDS: VANCOMYCIN 1,250 MG in NACL 0.9% 250ML 250 ML IV SCH (10:10)
[2018-08-19] MEDS: COREG PO SCH ×2 (10:10→21:58)
[2018-08-19] MEDS: SODIUM CHLORIDE FLUSH SYRINGE 10 ML IV SCH ×3 (10:11→21:58)
[2018-08-19] MEDS: CYMBALTA PO SCH (10:12)
[2018-08-19] MEDS: PEPCID PO SCH ×2 (10:12→21:58)
--- NOTE | 2018-08-19 10:59 | Progress Note ---
Assessment and Plan Acute hypoxic-hypercapnic respiratory failure on MVS h/o COPD Acute encephalopathy( toxic-metabolic) Hypokalemia Acute kidney injury h/o Chronic narcotic dependence Aspiration pneumonia/CAP Hypokalemia -Continue full MVS -Wean supplemental oxygen to keep O2 sats 88-90% -Lung protective strategies -Oxygen restrictive strategies -Daily ABGs/CXR -Antibiotics for CAP -Follow tracheal aspirate cultures and adjust antibiotic therapy based on MURTAZA/ID -Get procalcitonin to help guide antibiotic therapy. -VAP bundle addressed -Volume resuscitation. Monitor renal inidces -Daily SAT's & SBT's -Sedation target for RASS 0 to -1 -Stress ulcer prophylaxis -VTE prophylaxis -Nutrition consult for tube feedings -Aspiration precautions -Accuchecks with glycemic control. Target glucose of 140-180 mg/dL -Continue bronchodilators with pulmonary hygiene per RT -Maintenance of sleep -wake cycle -Mobility as tolerated by hemodynamics -Follow up lactic acid levels -Influenza and pneumonia vaccination per protocol Subjective Date of service: 08/19/18 Principal diagnosis: Sepsis/Resp failure Interval history: Same condition Objective - Constitutional Vitals: Vital Signs - 12hr 08/18/18 08/18/18 08/18/18 23:00 23:01 23:11 Temperature Pulse Rate 77 77 71 Pulse Rate [ Anterior Bilateral Throughout] Respiratory 33 H 33 H 31 H Rate Respiratory Rate [Anterior Bilateral Throughout] Blood Pressure 142/70 142/70 142/70 O2 Sat by Pulse 92 95 94 Oximetry 08/18/18 08/18/18 08/18/18 23:15 23:21 23:31 Temperature Pulse Rate 76 73 67 Pulse Rate [ Anterior Bilateral Throughout] Respiratory 32 H 32 H Rate Respiratory Rate [Anterior Bilateral Throughout] Blood Pressure 142/70 142/70 142/70 O2 Sat by Pulse 95 96 94 Oximetry 08/18/18 08/18/18 08/18/18 23:41 23:51 23:53 Temperature 100.5 F H Pulse Rate 72 72 Pulse Rate [ Anterior Bilateral Throughout] Respiratory 33 H 32 H Rate Respiratory Rate [Anterior Bilateral Throughout] Blood Pressure 142/70 142/70 O2 Sat by Pulse 95 95 Oximetry 08/19/18 08/19/18 08/19/18 00:00 00:11 00:21 Temperature Pulse Rate 72 71 69 Pulse Rate [ Anterior Bilateral Throughout] Respiratory 32 H 31 H 32 H Rate Respiratory Rate [Anterior Bilateral Throughout] Blood Pressure 135/62 135/62 135/62 O2 Sat by Pulse 94 95 94 Oximetry 08/19/18 08/19/18 08/19/18 00:31 00:41 00:51 Temperature Pulse Rate 70 70 70 Pulse Rate [ Anterior Bilateral Throughout] Respiratory 30 H 32 H 31 H Rate Respiratory Rate [Anterior Bilateral Throughout] Blood Pressure 135/62 135/62 135/62 O2 Sat by Pulse 96 94 94 Oximetry 08/19/18 08/19/18 08/19/18 01:01 01:11 01:21 Temperature Pulse Rate 69 68 70 Pulse Rate [ Anterior Bilateral Throughout] Respiratory 32 H 32 H 31 H Rate Respiratory Rate [Anterior Bilateral Throughout] Blood Pressure 119/51 119/51 119/51 O2 Sat by Pulse 93 94 95 Oximetry 08/19/18 08/19/18 08/19/18 01:31 01:41 01:51 Temperature Pulse Rate 72 71 71 Pulse Rate [ Anterior Bilateral Throughout] Respiratory 32 H 32 H 31 H Rate Respiratory Rate [Anterior Bilateral Throughout] Blood Pressure 119/51 119/51 119/51 O2 Sat by Pulse 94 94 94 Oximetry 08/19/18 08/19/18 08/19/18 02:00 02:11 02:21 Temperature Pulse Rate 76 69 74 Pulse Rate [ Anterior Bilateral Throughout] Respiratory 30 H 31 H 37 H Rate Respiratory Rate [Anterior Bilateral Throughout] Blood Pressure 119/51 125/57 125/57 O2 Sat by Pulse 94 94 94 Oximetry 08/19/18 08/19/18 08/19/18 02:31 02:41 02:51 Temperature Pulse Rate 71 73 71 Pulse Rate [ Anterior Bilateral Throughout] Respiratory 32 H 32 H 32 H Rate Respiratory Rate [Anterior Bilateral Throughout] Blood Pressure 125/57 125/57 125/57 O2 Sat by Pulse 95 95 93 Oximetry 08/19/18 08/19/18 08/19/18 03:00 03:11 03:21 Temperature Pulse Rate 69 69 71 Pulse Rate [ Anterior Bilateral Throughout] Respiratory 31 H 31 H 34 H Rate Respiratory Rate [Anterior Bilateral Throughout] Blood Pressure 138/62 138/62 138/62 O2 Sat by Pulse 91 93 95 Oximetry 08/19/18 08/19/18 08/19/18 03:31 03:41 03:51 Temperature Pulse Rate 74 75 74 Pulse Rate [ Anterior Bilateral Throughout] Respiratory 33 H 34 H 33 H Rate Respiratory Rate [Anterior Bilateral Throughout] Blood Pressure 138/62 138/62 138/62 O2 Sat by Pulse 96 94 95 Oximetry 08/19/18 08/19/18 08/19/18 04:00 04:11 04:21 Temperature Pulse Rate 76 74 80 Pulse Rate [ Anterior Bilateral Throughout] Respiratory 33 H 33 H 35 H Rate Respiratory Rate [Anterior Bilateral Throughout] Blood Pressure 138/62 142/67 142/67 O2 Sat by Pulse 96 95 96 Oximetry 08/19/18 08/19/18 08/19/18 04:31 07:51 08:02 Temperature Pulse Rate 80 77 Pulse Rate [ 85 85 Anterior Bilateral Throughout] Respiratory 34 H Rate Respiratory 20 20 Rate [Anterior Bilateral Throughout] Blood Pressure 142/67 140/51 O2 Sat by Pulse 96 95 Oximetry 08/19/18 08/19/18 10:10 10:37 Temperature Pulse Rate 88 Pulse Rate [ Anterior Bilateral Throughout] Respiratory 38 H Rate Respiratory Rate [Anterior Bilateral Throughout] Blood Pressure 185/93 O2 Sat by Pulse Oximetry General appearance: Present: no acute distress, well-nourished - EENT Eyes: PERRL, EOM intact ENT: hearing intact, clear oral mucosa Ears: bilateral: normal - Neck Neck: supple, normal ROM - Respiratory Respiratory effort: normal Respiratory: bilateral: CTA - Breasts Breasts: normal - Cardiovascular Rhythm: regular Heart Sounds: Present: S1 & S2. Absent: gallop, rub Extremities: pulses intact, No edema, normal color, Full ROM - Gastrointestinal General gastrointestinal: Present: soft, non-tender, non-distended, normal bowel sounds - Genitourinary Female genitourinary: normal - Integumentary Integumentary: clear, warm, dry - Musculoskeletal Musculoskeletal: 1, strength equal bilaterally - Neurologic Neurologic: moves all extremities - Psychiatric Psychiatric: memory intact, appropriate mood/affect, intact judgment & insight - Labs CBC & Chem 7: 08/16/18 05:38 08/19/18 04:15 Labs: Abnormal lab results 08/18/18 08/18/18 08/18/18 Range/Units 13:39 13:39 16:51 POC ABG pH 7.454 H (7.35-7.45) POC ABG pO2 65 L (80-105) Sodium (137-145) mmol/L Potassium (3.6-5.0) mmol/L Chloride (98-107) mmol/L BUN (7-17) mg/dL Glucose (65-100) mg/dL Calcium (8.4-10.2) mg/dL Troponin T 0.317 H* D (0.00-0.029) ng/mL C-Reactive Protein 10.70 H (0.00-1.30) mg/dL 08/19/18 08/19/18 Range/Units 03:47 04:15 POC ABG pH 7.482 H (7.35-7.45) POC ABG pO2 (80-105) Sodium 154 H (137-145) mmol/L Potassium 3.3 L (3.6-5.0) mmol/L Chloride 115.1 H (98-107) mmol/L BUN 19 H (7-17) mg/dL Glucose 117 H (65-100) mg/dL Calcium 7.8 L (8.4-10.2) mg/dL Troponin T (0.00-0.029) ng/mL C-Reactive Protein (0.00-1.30) mg/dL
--- NOTE | 2018-08-19 11:40 | Progress Note ---
Assessment and Plan Acute hypoxic-hypercapnic respiratory failure on MVS Acute COPD exacerbation NSTEMI Acute encephalopathy (toxic-metabolic) Hypokalemia Acute kidney injury h/o Chronic Narcotic Dependence Aspiration pneumonia/CAP Hypokalemia GNR in tracheal aspirate Hypernatremia (Prior CXR's suggest chronic/structural lung disease and etiology of fungemia unclear) - CTA negative for large P.E. + bilateral infiltrates / consolidation and borderline mediastinopathy - reduce TV to 400 ms and reduce set rate to 12/min - free water for hyperkalemia - cardiology consult for CHF - follow CD4 count +/- HIV serologies - continue antiinfectives per ID rec's - continue brovana & pulmicort re: COPD - discontinued manrique catheter now thar azotemia better - Continue to Wean supplemental oxygen to keep O2 sats 88-90% (restrictive Oxygen strategies acutely) - continue lung protective strategies - Daily ABGs/CXR for now - VAP bundle addressed - Avoid benzodiazepines, use high dose fentanyl for agitation and analgesia - Daily SAT's & SBT's assessment - Sedation target for RASS 0 to -1 - Stress ulcer prophylaxis - VTE prophylaxis - enteral Nutrition as tolerated - VAP bundle addressed - Free water flushes for hypernatremia - continue accuchecks with glycemic control per SSI for Target glucose of 140- 180 mg/dL - Continue bronchodilators with pulmonary hygiene per RT - Maintenance of sleep -wake cycle - Mobility protocol for pressure ulcer prophylaxis as tolerated by hemodynamics - Influenza and pneumonia vaccination per protocol ..care plan discussed at length with RN/RT at the bedside ... re-evaluate in am & prn PROGNOSIS :FAIR CONDITION: CRITICAL CODE STATUS: FULL CODE The high probability of a clinically significant, sudden or life-threatening deterioration of the [respiratory, neurology, renal] system(s) required my full and direct attention, intervention and personal management. The aggregate critical care time was [34] minutes without overlap. Time includes spent on; [x] Data Review and interpretation [x] Patient assessment and monitoring of vital signs [x] Documentation [x] Medication orders and management Subjective Date of service: 08/19/18 Principal diagnosis: Acute hypoxemic hypercapnic Resp failure; AE-COPD; Acute kidney injury Interval history: Patient is seen today for: Acute hypoxemic - hypercapnic respiratory failure on MVS; Acute COPD exacerbation; Acute encephalopathy (toxic-metabolic); Hypokalemia; Acute kidney injury Seen and examined at bedside; 24hour events reviewed; nursing and respiratory care staff consulted; no adverse overnight events reported to me; oxygenation improved; agitated during sedation vacations; alkalotic; 2D ECHO reveals EF 20- 25% Objective Vital Signs - 12hr 08/18/18 08/18/18 08/18/18 23:41 23:51 23:53 Temperature 100.5 F H Pulse Rate 72 72 Pulse Rate [ Anterior Bilateral Throughout] Respiratory 33 H 32 H Rate Respiratory Rate [Anterior Bilateral Throughout] Blood Pressure 142/70 142/70 O2 Sat by Pulse 95 95 Oximetry 08/19/18 08/19/18 08/19/18 00:00 00:11 00:21 Temperature Pulse Rate 72 71 69 Pulse Rate [ Anterior Bilateral Throughout] Respiratory 32 H 31 H 32 H Rate Respiratory Rate [Anterior Bilateral Throughout] Blood Pressure 135/62 135/62 135/62 O2 Sat by Pulse 94 95 94 Oximetry 08/19/18 08/19/18 08/19/18 00:31 00:41 00:51 Temperature Pulse Rate 70 70 70 Pulse Rate [ Anterior Bilateral Throughout] Respiratory 30 H 32 H 31 H Rate Respiratory Rate [Anterior Bilateral Throughout] Blood Pressure 135/62 135/62 135/62 O2 Sat by Pulse 96 94 94 Oximetry 08/19/18 08/19/18 08/19/18 01:01 01:11 01:21 Temperature Pulse Rate 69 68 70 Pulse Rate [ Anterior Bilateral Throughout] Respiratory 32 H 32 H 31 H Rate Respiratory Rate [Anterior Bilateral Throughout] Blood Pressure 119/51 119/51 119/51 O2 Sat by Pulse 93 94 95 Oximetry 08/19/18 08/19/18 08/19/18 01:31 01:41 01:51 Temperature Pulse Rate 72 71 71 Pulse Rate [ Anterior Bilateral Throughout] Respiratory 32 H 32 H 31 H Rate Respiratory Rate [Anterior Bilateral Throughout] Blood Pressure 119/51 119/51 119/51 O2 Sat by Pulse 94 94 94 Oximetry 08/19/18 08/19/18 08/19/18 02:00 02:11 02:21 Temperature Pulse Rate 76 69 74 Pulse Rate [ Anterior Bilateral Throughout] Respiratory 30 H 31 H 37 H Rate Respiratory Rate [Anterior Bilateral Throughout] Blood Pressure 119/51 125/57 125/57 O2 Sat by Pulse 94 94 94 Oximetry 08/19/18 08/19/18 08/19/18 02:31 02:41 02:51 Temperature Pulse Rate 71 73 71 Pulse Rate [ Anterior Bilateral Throughout] Respiratory 32 H 32 H 32 H Rate Respiratory Rate [Anterior Bilateral Throughout] Blood Pressure 125/57 125/57 125/57 O2 Sat by Pulse 95 95 93 Oximetry 08/19/18 08/19/18 08/19/18 03:00 03:11 03:21 Temperature Pulse Rate 69 69 71 Pulse Rate [ Anterior Bilateral Throughout] Respiratory 31 H 31 H 34 H Rate Respiratory Rate [Anterior Bilateral Throughout] Blood Pressure 138/62 138/62 138/62 O2 Sat by Pulse 91 93 95 Oximetry 08/19/18 08/19/18 08/19/18 03:31 03:41 03:51 Temperature Pulse Rate 74 75 74 Pulse Rate [ Anterior Bilateral Throughout] Respiratory 33 H 34 H 33 H Rate Respiratory Rate [Anterior Bilateral Throughout] Blood Pressure 138/62 138/62 138/62 O2 Sat by Pulse 96 94 95 Oximetry 08/19/18 08/19/18 08/19/18 04:00 04:11 04:21 Temperature Pulse Rate 76 74 80 Pulse Rate [ Anterior Bilateral Throughout] Respiratory 33 H 33 H 35 H Rate Respiratory Rate [Anterior Bilateral Throughout] Blood Pressure 138/62 142/67 142/67 O2 Sat by Pulse 96 95 96 Oximetry 08/19/18 08/19/18 08/19/18 04:31 07:51 08:02 Temperature Pulse Rate 80 77 Pulse Rate [ 85 85 Anterior Bilateral Throughout] Respiratory 34 H Rate Respiratory 20 20 Rate [Anterior Bilateral Throughout] Blood Pressure 142/67 140/51 O2 Sat by Pulse 96 95 Oximetry 08/19/18 08/19/18 10:10 10:37 Temperature Pulse Rate 88 Pulse Rate [ Anterior Bilateral Throughout] Respiratory 38 H Rate Respiratory Rate [Anterior Bilateral Throughout] Blood Pressure 185/93 O2 Sat by Pulse Oximetry Constitutional: appears uncomfortable, other (elderly looking CF, normocephalic and atraumatic) Eyes: non-icteric ENT: oropharynx moist, other (ETT 23 cm MARTHA) Neck: supple, no lymphadenopathy, no JVD, other (no thyromegaly) Effort: mildly labored Ascultation: Bilateral: diminished breath sounds, rales, rhonchi (right lung field) Percussion: Bilateral: not dull Cardiovascular: regular rate and rhythm Gastrointestinal: normoactive bowel sounds, soft, non-tender, non-distended Integumentary: normal Extremities: no cyanosis, no edema, no ischemia or petechiae Neurologic: non-focal exam (grossly), unable to assess (encephalopathic) Psychiatric: other (unable to assess) CBC and BMP: 08/21/18 05:45 08/22/18 06:45 ABG, PT/INR, D-dimer: ABG POC ABG pH 7.482 (7.35-7.45) H 08/19/18 03:47 POC ABG pCO2 34.7 (35-45) L 08/16/18 01:41 POC ABG pO2 83 (80-105) 08/19/18 03:47 POC ABG HCO3 22.4 (22-26 mml/L) 08/19/18 03:47 POC ABG Total CO2 23 (23-27mmol/L) 08/19/18 03:47 POC ABG O2 Sat 97 08/19/18 03:47 PT/INR, D-dimer D-Dimer 2768.33 ng/mlDDU (0-234) H 08/15/18 18:31 Abnormal lab findings: Abnormal Labs 08/15/18 08/15/18 08/15/18 17:52 17:52 17:52 WBC 12.7 H RBC 3.25 L Hgb Hct Seg Neuts % (Manual) Lymphocytes % (Manual) 6.0 L Nucleated RBC % Lymphocytes # (Manual) 0.8 L D-Dimer POC ABG pH POC ABG pCO2 POC ABG pO2 VBG pH Sodium Potassium 3.4 L Chloride 94.6 L Carbon Dioxide 17 L BUN 67 H Creatinine 3.5 H Glucose 131 H Hemoglobin A1c Lactic Acid 5.20 H* Calcium 7.6 L Phosphorus AST 887 H ALT 316 H Troponin T C-Reactive Protein Total Protein Albumin 3.1 L Triglycerides LDL Cholesterol Direct HDL Cholesterol Urine WBC (Auto) Salicylates Acetaminophen 08/15/18 08/15/18 08/15/18 18:11 18:19 18:31 WBC RBC Hgb Hct Seg Neuts % (Manual) Lymphocytes % (Manual) Nucleated RBC % Lymphocytes # (Manual) D-Dimer 2768.33 H POC ABG pH 7.173 L POC ABG pCO2 47.8 H POC ABG pO2 177 H VBG pH 7.187 L* Sodium Potassium Chloride Carbon Dioxide BUN Creatinine Glucose Hemoglobin A1c Lactic Acid Calcium Phosphorus AST ALT Troponin T C-Reactive Protein Total Protein Albumin Triglycerides LDL Cholesterol Direct HDL Cholesterol Urine WBC (Auto) Salicylates Acetaminophen 08/15/18 08/15/18 08/15/18 18:31 19:14 19:14 WBC RBC Hgb Hct Seg Neuts % (Manual) Lymphocytes % (Manual) Nucleated RBC % Lymphocytes # (Manual) D-Dimer POC ABG pH POC ABG pCO2 POC ABG pO2 VBG pH Sodium Potassium Chloride Carbon Dioxide BUN Creatinine Glucose Hemoglobin A1c Lactic Acid 2.70 H* Calcium Phosphorus AST ALT Troponin T 0.454 H* C-Reactive Protein Total Protein Albumin Triglycerides 356 H LDL Cholesterol Direct 4 L HDL Cholesterol 10 L Urine WBC (Auto) Salicylates < 0.3 L Acetaminophen 08/15/18 08/15/18 08/15/18 19:14 19:15 23:09 WBC RBC Hgb Hct Seg Neuts % (Manual) Lymphocytes % (Manual) Nucleated RBC % Lymphocytes # (Manual) D-Dimer POC ABG pH POC ABG pCO2 POC ABG pO2 VBG pH Sodium Potassium Chloride Carbon Dioxide BUN Creatinine Glucose Hemoglobin A1c Lactic Acid 3.20 H* Calcium Phosphorus AST ALT Troponin T C-Reactive Protein Total Protein Albumin Triglycerides LDL Cholesterol Direct HDL Cholesterol Urine WBC (Auto) 17.0 H Salicylates Acetaminophen < 5.0 L 08/15/18 08/16/18 08/16/18 23:09 01:41 05:38 WBC RBC 3.07 L Hgb 9.8 L Hct 28.7 L Seg Neuts % (Manual) 84.0 H Lymphocytes % (Manual) 6.0 L Nucleated RBC % 4.0 H Lymphocytes # (Manual) 0.5 L D-Dimer POC ABG pH 7.323 L POC ABG pCO2 34.7 L POC ABG pO2 78 L VBG pH Sodium Potassium Chloride Carbon Dioxide BUN Creatinine Glucose Hemoglobin A1c 6.4 H Lactic Acid Calcium Phosphorus AST ALT Troponin T C-Reactive Protein Total Protein Albumin Triglycerides LDL Cholesterol Direct HDL Cholesterol Urine WBC (Auto) Salicylates Acetaminophen 08/16/18 08/16/18 08/17/18 05:38 22:43 03:42 WBC RBC Hgb Hct Seg Neuts % (Manual) Lymphocytes % (Manual) Nucleated RBC % Lymphocytes # (Manual) D-Dimer POC ABG pH POC ABG pCO2 POC ABG pO2 VBG pH Sodium Potassium 2.9 L* 3.1 L 2.9 L* Chloride 108.8 H 111.9 H Carbon Dioxide 17 L 19 L 21 L BUN 62 H 40 H 33 H Creatinine 2.0 H Glucose 139 H 145 H Hemoglobin A1c Lactic Acid Calcium 7.8 L 8.3 L Phosphorus 1.50 L AST 619 H ALT 353 H Troponin T C-Reactive Protein Total Protein 6.1 L Albumin 2.8 L Triglycerides LDL Cholesterol Direct HDL Cholesterol Urine WBC (Auto) Salicylates Acetaminophen 08/17/18 08/17/18 08/18/18 11:02 16:42 03:28 WBC RBC Hgb Hct Seg Neuts % (Manual) Lymphocytes % (Manual) Nucleated RBC % Lymphocytes # (Manual) D-Dimer POC ABG pH 7.483 H 7.499 H POC ABG pCO2 POC ABG pO2 VBG pH Sodium 147 H Potassium 3.2 L Chloride 115.8 H Carbon Dioxide BUN 23 H Creatinine Glucose 121 H Hemoglobin A1c Lactic Acid Calcium 8.1 L Phosphorus 2.30 L D AST ALT Troponin T C-Reactive Protein Total Protein Albumin Triglycerides LDL Cholesterol Direct HDL Cholesterol Urine WBC (Auto) Salicylates Acetaminophen 08/18/18 08/18/18 08/18/18 04:10 13:39 13:39 WBC RBC Hgb Hct Seg Neuts % (Manual) Lymphocytes % (Manual) Nucleated RBC % Lymphocytes # (Manual) D-Dimer POC ABG pH POC ABG pCO2 POC ABG pO2 VBG pH Sodium 147 H Potassium 3.3 L Chloride 111.9 H Carbon Dioxide BUN 21 H Creatinine Glucose 113 H Hemoglobin A1c Lactic Acid Calcium Phosphorus 1.50 L D AST ALT Troponin T 0.317 H* D C-Reactive Protein 10.70 H Total Protein Albumin Triglycerides LDL Cholesterol Direct HDL Cholesterol Urine WBC (Auto) Salicylates Acetaminophen 08/18/18 08/19/18 08/19/18 16:51 03:47 04:15 WBC RBC Hgb Hct Seg Neuts % (Manual) Lymphocytes % (Manual) Nucleated RBC % Lymphocytes # (Manual) D-Dimer POC ABG pH 7.454 H 7.482 H POC ABG pCO2 POC ABG pO2 65 L VBG pH Sodium 154 H Potassium 3.3 L Chloride 115.1 H Carbon Dioxide BUN 19 H Creatinine Glucose 117 H Hemoglobin A1c Lactic Acid Calcium 7.8 L Phosphorus AST ALT Troponin T C-Reactive Protein Total Protein Albumin Triglycerides LDL Cholesterol Direct HDL Cholesterol Urine WBC (Auto) Salicylates Acetaminophen Chest x-ray: pending Allied health notes reviewed: nursing
--- NOTE | 2018-08-19 11:47 | Progress Note ---
Assessment and Plan Cultures: 08/15/2018 blood culture: One set positive for yeast 08/15/2018 sputum culture: Escherichia coli, wade susceptible 08/18/2018 blood culture: no growth today 08/18/2018 urine culture: neg A/P: 68-year-old female with COPD, arthritis, history of multiple spinal surgeries was brought to the emergency room on 08/15/2018 with altered mental status: 1) Sepsis: Likely secondary to fungemia. 2) Fungemia: Blood cultures done on admission growing yeast in one set (probably Camryn but could be other yeast). Etiology is unclear. Patient without any history of indwelling PICC line, TPN or immunocompromised status. reporting severe explosive diarrhea, N/V before admisison after taken 4 days of amoxicillin for dental implant. -s/p fluconazole 800 mg loading dose -serum Crypto negative. -08/15/2018 blood culture: One set positive for yeast -08/18/2018 blood culture: no growth today -CTA chest showed limited study due to respiratory motion artifact. No evidence of pulmonary embolism. Abnormal bilateral lung consolidation which may represent pulmonary edema or pneumonia. Mild cardiomegaly. Indeterminant mediastinal lymph nodes. -CT abdomen showed extensive bilateral lower lobe pulmonary infiltrates, rectal tube and Dodge catheter noted. NG tube at gastric antrum. Left hip prosthesis Extensive degenerative changes noted lumbar spine -TTE EF 25-30% no vegetations 3) Acute renal failure: On admission: Creatinine improved. Nephrology following. 4) Transaminitis: Likely from shock liver. Monitor. 5) Bilateral pneumonia: DDx aspiration pneumonia v/s CAP. Causing acute respiratory failure. Chest x-ray shows reticular nodular infiltrates, some of these appear to be chronic and would also present in 2011. CTA chest showed limited study due to respiratory motion artifact. No evidence of pulmonary embo lism. Abnormal bilateral lung consolidation which may represent pulmonary edema or pneumonia. Mild cardiomegaly. Indeterminant mediastinal lymph nodes. 6) Right maxillary sinusitis 7) Acute encephalopathy: Likely multifactorial. CT head unremarkable for acute intracranial process. currently sedated. 8) Recent diarrhea after antibiotics ? C diff Recs: Continue IV fluconazole 400 mg daily. If fever continues or hypotension will change fluconazole to micafungin Send C diff Stop zosyn and vancomycin Start ceftriaxone and flagyl IV f/u HIV ordered f/u Repeat blood cultures ordered f/u blood culture ID and sensitivity Of note, the RIJ central line will need removal at some point since it was placed during active fungemia Dr Pradhan is covering this weekend Yasmin Alvarez MD Infectious Diseases [employer] [facility] ([facility]) M [phone] O [phone] Subjective Date of service: 08/19/18 Principal diagnosis: Acute hypoxemic hypercapnic Resp failure; AE-COPD; Acute kidney injury Interval history: Remains intubated, on 2 sedative, no pressors, tmax 101 ROS: unable to obtain Objective - Exam Narrative Exam: Constitutional: sedated, intubated fiO2 45%, p8 Head, Ears, Nose: Normocephalic, atraumatic. External ears, nose normal Eyes: Conjunctivae/corneas clear. No icterus. No ptosis. Neck: Supple, no meningeal signs Oral: +ETT Cardiovascular: irreg Respiratory: Good air entry, clear to auscultation bilaterally GI: Soft, non-tender; bowel sounds normal. No peritoneal signs Musculoskeletal: No pedal edema, no cyanosis. Skin: No rash or abscess Hem/Lymphatic: No palpable cervical or supraclavicular nodes. No lymphangitis Psych: no agitation Neurological: sedated, intubated, on vent Rectal tube with diarrhea - Constitutional Vitals: Vital Signs Temp Pulse Resp BP Pulse Ox 100.5 F H 88 38 H 185/93 95 08/18/18 23:53 08/19/18 10:10 08/19/18 10:37 08/19/18 10:10 08/19/18 07:51 Temperature -Last 24 Hours Temperature 100.5 F Temperature 98.8 F Temperature 101.0 F Temperature 103.2 F - Labs CBC & Chem 7: 08/16/18 05:38 08/19/18 04:15 Labs: Abnormal lab results 08/18/18 08/18/18 08/18/18 Range/Units 13:39 13:39 16:51 POC ABG pH 7.454 H (7.35-7.45) POC ABG pO2 65 L (80-105) Sodium (137-145) mmol/L Potassium (3.6-5.0) mmol/L Chloride (98-107) mmol/L BUN (7-17) mg/dL Glucose (65-100) mg/dL Calcium (8.4-10.2) mg/dL Troponin T 0.317 H* D (0.00-0.029) ng/mL C-Reactive Protein 10.70 H (0.00-1.30) mg/dL 08/19/18 08/19/18 Range/Units 03:47 04:15 POC ABG pH 7.482 H (7.35-7.45) POC ABG pO2 (80-105) Sodium 154 H (137-145) mmol/L Potassium 3.3 L (3.6-5.0) mmol/L Chloride 115.1 H (98-107) mmol/L BUN 19 H (7-17) mg/dL Glucose 117 H (65-100) mg/dL Calcium 7.8 L (8.4-10.2) mg/dL Troponin T (0.00-0.029) ng/mL C-Reactive Protein (0.00-1.30) mg/dL
[2018-08-19] MEDS ORDERED: APRESOLINE PO PRN (12:01)
[2018-08-19] MEDS: DIFLUCAN 200 ML IV SCH (12:04)
[2018-08-19] MEDS ORDERED: ROCEPHIN/NS 2 GM/100 ML 2 GM/100 ML BAG IV SCH (13:00)
[2018-08-19] MEDS: DIPRIVAN 10 MG/ML 1,000 MG/100 ML BOTTLE IV SCH (13:00)
[2018-08-19] MEDS ORDERED: SODIUM BICARBONATE FEEDTUBE PRN (13:18)
[2018-08-19] MEDS ORDERED: SIMPLE SYRUP FEEDTUBE PRN ×2 (13:18)
[2018-08-19] MEDS ORDERED: PANCREAZE DR 10,500 UNIT FEEDTUBE PRN (13:18)
[2018-08-19] MEDS: FLAGYL 500 MG/100 ML 500 MG/100 ML BAG IV SCH ×2 (14:19→21:57)
--- NOTE | 2018-08-19 14:31 | Consultation ---
History of Present Illness Consult date: 08/19/18 Consult reason: congestive heart failure History of present illness: Patient is a 68 year old woman who was brought in 08/15 with altered mental s tatus. She was noted to be hypoxic and was intubated in the emergency room. Initial chest x-ray reports diffuse right lung patchy airspace opacities. Head CT scan reports no acute intracranial abnormalities. Initial labs revealed multiple metabolic abnormalities including creatinine 3.5, elevated liver transaminase and lactic acidosis. Further evaluation with an echocardiogram revealed a decreased left ventricular systolic function, ejection fraction 25-30%. The chronicity of the left ventricular systolic dysfunction is uncertain at this time. History is not obtainable as she remains intubated on the ventilator. There are no family members present. 12 lead ECG shows sinus rhythm with a left bundle branch block. Past History Past Medical History: COPD Past Surgical History: Other (Neck and back surgery) Social history: , lives with family, full code Family history: other (unable to obtain, no family at bedside) Medications and Allergies Allergies Allergy/AdvReac Type Severity Reaction Status Date / Time No Known Allergies Allergy Unverified 08/15/18 16:49 Home Medications Medication Instructions Recorded Confirmed Last Taken Type Carvedilol 6.25 mg PO BID 08/15/18 08/15/18 Unknown History DULoxetine 60 mg PO QDAY 08/15/18 08/15/18 Unknown History Gabapentin 600 mg PO Q6HR PRN 08/15/18 08/15/18 Unknown History Methylphenidate 5 mg PO TID 08/15/18 08/15/18 Unknown History Morphabond ER 60 mg PO Q12HR 08/15/18 08/15/18 Unknown History Pravastatin Sodium 10 mg PO QDAY 08/15/18 08/15/18 Unknown History Tizanidine HCl 4 mg PO Q12HR 08/15/18 08/15/18 Unknown History oxyCODONE /ACETAMINOPHEN 7.5 - 325 mg PO Q8HR 08/15/18 08/15/18 Unknown History Active Meds: Active Medications Acetaminophen (Tylenol) 650 mg PO Q4H PRN PRN Reason: Pain MILD(1-3)/Fever >100.5/MONDRAGON Last Admin: 08/19/18 10:37 Dose: 650 mg Documented by: Acetaminophen (Tylenol) 650 mg MI Q4H PRN PRN Reason: Pain, Mild (1-3) Last Admin: 08/16/18 17:11 Dose: 650 mg Documented by: Albuterol (Proventil) 2.5 mg IH Q3HRT PRN PRN Reason: Shortness Of Breath Albuterol/Ipratropium (Duoneb *Not For Prn Use*) 1 ampul IH QIDRT [facility] Last Admin: 08/19/18 11:48 Dose: 1 ampul Documented by: Lipase/Protease/Amylase (Alis Elizabeth 10,500 Unit) 1 each FEEDTUBE PRN PRN PRN Reason: For Clogged Feeding Tube Arformoterol Tartrate (Brovana Nebu) 15 mcg IH Q12HRT [facility] Last Admin: 08/19/18 07:51 Dose: 15 mcg Documented by: Budesonide (Pulmicort) 0.5 mg IH Q12HRT [facility] Last Admin: 08/19/18 07:51 Dose: 0.5 mg Documented by: Carvedilol (Coreg) 6.25 mg PO BID [facility] Last Admin: 08/19/18 10:10 Dose: 6.25 mg Documented by: Duloxetine HCl (Cymbalta) 60 mg PO QDAY [facility] Last Admin: 08/19/18 10:12 Dose: Not Given Documented by: Enoxaparin Sodium (Lovenox) 40 mg SUB-Q QDAY@2200 [facility] Last Admin: 08/18/18 21:51 Dose: 40 mg Documented by: Famotidine (Pepcid) 20 mg PO BID [facility] Last Admin: 08/19/18 10:12 Dose: 20 mg Documented by: Fentanyl (Sublimaze) 50 mcg IV Q10MIN PRN PRN Reason: ANALGESIA Last Admin: 08/17/18 13:36 Dose: 50 mcg Documented by: Hydralazine HCl (Apresoline) 10 mg IV Q3H PRN PRN Reason: SBP > 160, DBP > 100 Hydromorphone HCl (Dilaudid) 0.5 mg IV Q3H PRN PRN Reason: Pain , Severe (7-10) Hydrophilic Ointment (Vaseline Lip Therapy) 1 applic TP Q2HR PRN PRN Reason: Dry Lips Fentanyl Citrate (Fentanyl Drip Premix) 2,000 mcg in 100 mls @ 4.082 mls/hr IV TITR [facility]; Protocol Last Admin: 08/19/18 05:45 Dose: 2 mcg/kg/hr, 8.165 mls/hr Documented by: Propofol (Diprivan 10 Mg/Ml) 1,000 mg in 100 mls @ 2.449 mls/hr IV TITR [facility]; Protocol Last Admin: 08/19/18 13:00 Dose: 10 mcg/kg/min, 4.899 mls/hr Documented by: Vancomycin HCl 1,250 mg/ (Sodium Chloride) 275 mls @ 166.667 mls/hr IV Q24HR [facility] Last Admin: 08/19/18 10:10 Dose: 166.667 mls/hr Documented by: Norepinephrine (Levophed Drip 4 Mg/Ns 250 Ml) 4 mg in 250 mls @ 7.5 mls/hr IV TITR [facility]; Protocol Fluconazole (Diflucan) 200 mls @ 100 mls/hr IV Q24H [facility]; Protocol Last Admin: 08/19/18 12:04 Dose: 100 mls/hr Documented by: Dextrose (D5w) 1,000 mls @ 75 mls/hr IV DIRECT [facility] Ceftriaxone Sodium (Rocephin/Ns 2 Gm/100 Ml) 2 gm in 100 mls @ 200 mls/hr IV Q24HR [facility]; Protocol Metronidazole (Flagyl 500 Mg/100 Ml) 500 mg in 100 mls @ 100 mls/hr IV Q8HR [facility]; Protocol Last Admin: 08/19/18 14:19 Dose: 100 mls/hr Documented by: Metoclopramide HCl (Reglan) 5 mg IV Q6H PRN PRN Reason: Nausea And Vomiting Ondansetron HCl (Zofran) 4 mg IV Q8H PRN PRN Reason: Nausea And Vomiting Simple Syrup (Simple Syrup) 15 ml FEEDTUBE PRN PRN PRN Reason: Hypoglycemia Simple Syrup (Simple Syrup) 30 ml FEEDTUBE PRN PRN PRN Reason: Hypoglycemia Sodium Bicarbonate (Sodium Bicarbonate) 325 mg FEEDTUBE PRN PRN PRN Reason: For Clogged Feeding Tube Sodium Chloride (Sodium Chloride Flush Syringe 10 Ml) 10 ml IV BID [facility] Last Admin: 08/19/18 10:11 Dose: 10 ml Documented by: Sodium Chloride (Sodium Chloride Flush Syringe 10 Ml) 10 ml IV PRN PRN PRN Reason: LINE FLUSH Last Admin: 08/18/18 21:52 Dose: 10 ml Documented by: Physical Examination Vital Signs Temp 98.1 F 08/15/18 17:30 General appearance: other (intubated on the vent) Cardiac: Positive: Reg Rate and Rhythm Results 08/16/18 05:38 08/19/18 04:15 Comprehensive Metabolic Panel 08/19/18 Range/Units 04:15 Sodium 154 H (137-145) mmol/L Potassium 3.3 L (3.6-5.0) mmol/L Chloride 115.1 H (98-107) mmol/L Carbon Dioxide 22 (22-30) mmol/L BUN 19 H (7-17) mg/dL Creatinine 0.7 (0.7-1.2) mg/dL Glucose 117 H (65-100) mg/dL Calcium 7.8 L (8.4-10.2) mg/dL Assessment and Plan Altered mental status Acute respiratory failure Acute renal failure -resolved Hypokalemia Elevated liver transaminase Pneumonia LBBB Echocardiogram revealed a decreased left ventricular systolic function, ejection fraction 25-30%. The chronicity of the left ventricular systolic dysfunction is uncertain at this time.
[2018-08-19] MEDS: APRESOLINE IV PRN (15:06)
--- NOTE | 2018-08-19 16:19 | Progress Note ---
Assessment and Plan Acute hypoxic-hypercapnic respiratory failure on MVS h/o COPD Acute encephalopathy( toxic-metabolic) Hypokalemia Acute kidney injury h/o Chronic narcotic dependence Aspiration pneumonia/CAP Hypokalemia -Continue full MVS -Wean supplemental oxygen to keep O2 sats 88-90% -Lung protective strategies -Oxygen restrictive strategies -Daily ABGs/CXR -Antibiotics for CAP -Follow tracheal aspirate cultures and adjust antibiotic therapy based on MURTAZA/ID -Get procalcitonin to help guide antibiotic therapy. -VAP bundle addressed -Volume resuscitation. Monitor renal inidces -Daily SAT's & SBT's -Sedation target for RASS 0 to -1 -Stress ulcer prophylaxis -VTE prophylaxis -Nutrition consult for tube feedings -Aspiration precautions -Accuchecks with glycemic control. Target glucose of 140-180 mg/dL -Continue bronchodilators with pulmonary hygiene per RT -Maintenance of sleep -wake cycle -Mobility as tolerated by hemodynamics -Follow up lactic acid levels -Influenza and pneumonia vaccination per protocol Subjective Date of service: 08/19/18 Principal diagnosis: Acute hypoxemic hypercapnic Resp failure; AE-COPD; Acute kidney injury Interval history: Same condition Passing Blood clots from rectum GI nconsult requeted Objective - Constitutional Vitals: Vital Signs - 12hr 08/19/18 08/19/18 08/19/18 04:21 04:31 05:00 Temperature Pulse Rate 80 80 79 Pulse Rate [ Anterior Bilateral Throughout] Respiratory 35 H 34 H 32 H Rate Respiratory Rate [Anterior Bilateral Throughout] Blood Pressure 142/67 142/67 142/67 O2 Sat by Pulse 96 96 96 Oximetry 08/19/18 08/19/18 08/19/18 05:31 06:00 06:31 Temperature Pulse Rate 76 74 71 Pulse Rate [ Anterior Bilateral Throughout] Respiratory 33 H 30 H 32 H Rate Respiratory Rate [Anterior Bilateral Throughout] Blood Pressure 123/75 121/40 123/75 O2 Sat by Pulse 96 95 95 Oximetry 08/19/18 08/19/18 08/19/18 07:00 07:31 07:51 Temperature Pulse Rate 74 73 77 Pulse Rate [ 85 Anterior Bilateral Throughout] Respiratory 33 H 32 H Rate Respiratory 20 Rate [Anterior Bilateral Throughout] Blood Pressure 140/51 140/51 140/51 O2 Sat by Pulse 94 95 95 Oximetry 08/19/18 08/19/18 08/19/18 08:00 08:02 08:31 Temperature 103 F H Pulse Rate 71 76 Pulse Rate [ 85 Anterior Bilateral Throughout] Respiratory 30 H 33 H Rate Respiratory 20 Rate [Anterior Bilateral Throughout] Blood Pressure 140/51 136/52 O2 Sat by Pulse 92 97 Oximetry 08/19/18 08/19/18 08/19/18 09:00 09:31 10:00 Temperature Pulse Rate 80 84 90 Pulse Rate [ Anterior Bilateral Throughout] Respiratory 35 H 36 H 39 H Rate Respiratory Rate [Anterior Bilateral Throughout] Blood Pressure 178/89 178/89 185/93 O2 Sat by Pulse 91 95 91 Oximetry 08/19/18 08/19/18 08/19/18 10:10 10:31 10:37 Temperature Pulse Rate 88 86 Pulse Rate [ Anterior Bilateral Throughout] Respiratory 37 H 38 H Rate Respiratory Rate [Anterior Bilateral Throughout] Blood Pressure 185/93 185/93 O2 Sat by Pulse 93 Oximetry 08/19/18 08/19/18 08/19/18 11:00 11:31 11:37 Temperature Pulse Rate 96 H 79 Pulse Rate [ Anterior Bilateral Throughout] Respiratory 40 H 37 H 40 H Rate Respiratory Rate [Anterior Bilateral Throughout] Blood Pressure 181/98 181/98 O2 Sat by Pulse 92 94 Oximetry 08/19/18 08/19/18 08/19/18 11:48 11:49 11:58 Temperature Pulse Rate 77 Pulse Rate [ 77 79 Anterior Bilateral Throughout] Respiratory Rate Respiratory 36 H 39 H Rate [Anterior Bilateral Throughout] Blood Pressure 181/98 O2 Sat by Pulse 96 Oximetry 08/19/18 08/19/18 08/19/18 12:00 12:01 12:31 Temperature 101.6 F H Pulse Rate 76 82 Pulse Rate [ Anterior Bilateral Throughout] Respiratory 41 H 38 H 43 H Rate Respiratory Rate [Anterior Bilateral Throughout] Blood Pressure 181/98 181/98 O2 Sat by Pulse 40 L 91 94 Oximetry 08/19/18 08/19/18 08/19/18 13:00 13:31 14:00 Temperature Pulse Rate 80 87 89 Pulse Rate [ Anterior Bilateral Throughout] Respiratory 42 H 43 H 42 H Rate Respiratory Rate [Anterior Bilateral Throughout] Blood Pressure 166/93 162/75 162/91 O2 Sat by Pulse 92 94 90 Oximetry 08/19/18 08/19/18 08/19/18 14:31 15:00 15:06 Temperature Pulse Rate 90 92 H 90 Pulse Rate [ Anterior Bilateral Throughout] Respiratory 43 H 43 H Rate Respiratory Rate [Anterior Bilateral Throughout] Blood Pressure 162/91 165/89 165/89 O2 Sat by Pulse 94 92 Oximetry General appearance: Present: no acute distress, well-nourished - EENT Eyes: PERRL, EOM intact ENT: hearing intact, clear oral mucosa Ears: bilateral: normal - Neck Neck: supple, normal ROM - Respiratory Respiratory effort: normal Respiratory: bilateral: CTA - Breasts Breasts: normal - Cardiovascular Rhythm: regular Heart Sounds: Present: S1 & S2. Absent: gallop, rub Extremities: pulses intact, No edema, normal color, Full ROM - Gastrointestinal General gastrointestinal: Present: soft, non-tender, non-distended, normal bowel sounds - Genitourinary Female genitourinary: normal - Integumentary Integumentary: clear, warm, dry - Musculoskeletal Musculoskeletal: 1, strength equal bilaterally - Neurologic Neurologic: moves all extremities - Psychiatric Psychiatric: memory intact, appropriate mood/affect, intact judgment & insight - Labs CBC & Chem 7: 08/16/18 05:38 08/19/18 04:15 Labs: Abnormal lab results 08/18/18 08/18/18 08/19/18 Range/Units 13:39 16:51 03:47 POC ABG pH 7.454 H 7.482 H (7.35-7.45) POC ABG pO2 65 L (80-105) Sodium (137-145) mmol/L Potassium (3.6-5.0) mmol/L Chloride (98-107) mmol/L BUN (7-17) mg/dL Glucose (65-100) mg/dL Calcium (8.4-10.2) mg/dL C-Reactive Protein 10.70 H (0.00-1.30) mg/dL 08/19/18 Range/Units 04:15 POC ABG pH (7.35-7.45) POC ABG pO2 (80-105) Sodium 154 H (137-145) mmol/L Potassium 3.3 L (3.6-5.0) mmol/L Chloride 115.1 H (98-107) mmol/L BUN 19 H (7-17) mg/dL Glucose 117 H (65-100) mg/dL Calcium 7.8 L (8.4-10.2) mg/dL C-Reactive Protein (0.00-1.30) mg/dL
[2018-08-19] MEDS: LOVENOX SUB-Q SCH (21:56)
[2018-08-20] MEDS: fentaNYL DRIP Premix 2,000 MCG/100 ML BAG IV SCH ×4 (01:31→22:44)
[2018-08-20 06:18] LABS: Alanine Aminotransferase 104 units/L (7-56); Albumin 2.6 g/dL (3.9-5); BUN/Creatinine Ratio 30; Blood Urea Nitrogen 24 mg/dL (7-17); Calcium 8.1 mg/dL (8.4-10.2); Hemolysis Index 4
[2018-08-20] MEDS: FLAGYL 500 MG/100 ML 500 MG/100 ML BAG IV SCH ×3 (06:52→21:17)
[2018-08-20] MEDS: PULMICORT IH SCH ×2 (08:03→19:19)
[2018-08-20] MEDS: BROVANA NEBU IH SCH ×2 (08:03→19:19)
[2018-08-20] MEDS: DUONEB *Not for PRN Use IH SCH ×4 (08:04→19:19)
--- NOTE | 2018-08-20 08:40 | Progress Note ---
Assessment and Plan Assessment and plan: --Acute hypoxic hypercapnic respiratory failure; requiring mechanical ventilation Continue ventilatory support, nebulizers, IV antibiotics, supportive care wean as tolerated and extubate, pulmonary following --Aspiration pneumonia; continue Rocephin and Flagyl Patient is also on Diflucan, ID following --Sepsis; secondary to aspiration pneumonia, continue current antibiotics Follow cultures, ID following --Hypernatremia; free water flushes Closely monitor electrolytes, trending down --Severe malnutrition/hypoalbuminemia; Nutrition consults and supportive care --Acute kidney injury; avoid nephrotoxins Nephrology following ----Acute systolic congestive heart failure; Ejection fraction 25-30%, continue current management Cardiology following --Elevated Transaminases; possible congested liver Levels trending down, check acute hepatitis panel Consider GI evaluation if needed --DVT prophylaxis; Lovenox Consults and recommendations noted and appreciated Plan of care reviewed with the patient's nurse Patient is critically ill with poor prognosis The high probability of a clinically significant, sudden or life threatening deterioration of the [respiratory, cardiology, ID, renal and metabolic] system(s) required my full and direct attention, intervention and personal management. The aggregate critical care time was [33] minutes. This time is in addition to time spent performing reported procedures but includes the following: [x] Data Review and interpretation [x] Patient assessment and monitoring of vital signs [x] Documentation [x] Medication orders and management History Interval history: Patient seen and examined in ICU this morning medical records reviewed Patient remains intubated on ventilatory support Mild distress and tachypneic Patient has low-grade fever Already on Rocephin and Flagyl and Diflucan Vital signs noted Hospitalist Physical - Constitutional Vitals: Temp Pulse Resp BP Pulse Ox 100.3 F H 92 H 34 H 150/70 97 08/20/18 08:00 08/20/18 08:24 08/20/18 08:24 08/20/18 08:00 08/20/18 08:00 General appearance: Present: mild distress, well-nourished, other (intubated on ventilatory support, tachypneic) - EENT Eyes: Present: PERRL, EOM intact - Neck Neck: Present: supple - Respiratory Respiratory effort: labored Respiratory: bilateral: diminished, rhonchi, negative: rales, wheezing - Cardiovascular Rhythm: regular Heart Sounds: Present: S1 & S2 - Extremities Extremities: no ischemia, No edema - Abdominal General gastrointestinal: soft, non-tender, non-distended, normal bowel sounds - Integumentary Integumentary: Present: clear, warm - Psychiatric Psychiatric: other (intubated on vent) - Neurologic Neurologic: other (intubated ) Results - Labs CBC & Chem 7: 08/16/18 05:38 08/20/18 05:25 Labs: Laboratory Last Values WBC 8.1 K/mm3 (4.5-11.0) 08/16/18 05:38 RBC 3.07 M/mm3 (3.65-5.03) L 08/16/18 05:38 Hgb 9.8 gm/dl (10.1-14.3) L 08/16/18 05:38 Hct 28.7 % (30.3-42.9) L 08/16/18 05:38 MCV 94 fl (79-97) 08/16/18 05:38 MCH 32 pg (28-32) 08/16/18 05:38 MCHC 34 % (30-34) 08/16/18 05:38 RDW 14.8 % (13.2-15.2) 08/16/18 05:38 Plt Count 209 K/mm3 (140-440) 08/16/18 05:38 Add Manual Diff Complete 08/16/18 05:38 Total Counted 100 08/16/18 05:38 Seg Neuts % (Manual) 84.0 % (40.0-70.0) H 08/16/18 05:38 Band Neutrophils % 6.0 % 08/16/18 05:38 Lymphocytes % (Manual) 6.0 % (13.4-35.0) L 08/16/18 05:38 Reactive Lymphs % (Man) 1.0 % 08/16/18 05:38 Monocytes % (Manual) 2.0 % (0.0-7.3) 08/16/18 05:38 Eosinophils % (Manual) 0 % (0.0-4.3) 08/16/18 05:38 Basophils % (Manual) 1.0 % (0.0-1.8) 08/16/18 05:38 Metamyelocytes % 0 % 08/16/18 05:38 Myelocytes % 0 % 08/16/18 05:38 Promyelocytes % 0 % 08/16/18 05:38 Blast Cells % 0 % 08/16/18 05:38 Nucleated RBC % 4.0 % (0.0-0.9) H 08/16/18 05:38 Seg Neutrophils # Man 6.8 K/mm3 (1.8-7.7) 08/16/18 05:38 Band Neutrophils # 0.5 K/mm3 08/16/18 05:38 Lymphocytes # (Manual) 0.5 K/mm3 (1.2-5.4) L 08/16/18 05:38 Abs React Lymphs (Man) 0.1 K/mm3 08/16/18 05:38 Monocytes # (Manual) 0.2 K/mm3 (0.0-0.8) 08/16/18 05:38 Eosinophils # (Manual) 0.0 K/mm3 (0.0-0.4) 08/16/18 05:38 Basophils # (Manual) 0.1 K/mm3 (0.0-0.1) 08/16/18 05:38 Metamyelocytes # 0.0 K/mm3 08/16/18 05:38 Myelocytes # 0.0 K/mm3 08/16/18 05:38 Promyelocytes # 0.0 K/mm3 08/16/18 05:38 Blast Cells # 0.0 K/mm3 08/16/18 05:38 WBC Morphology Not Reportable 08/16/18 05:38 Hypersegmented Neuts Not Reportable 08/16/18 05:38 Hyposegmented Neuts Not Reportable 08/16/18 05:38 Hypogranular Neuts Not Reportable 08/16/18 05:38 Smudge Cells Not Reportable 08/16/18 05:38 Toxic Granulation Not Reportable 08/16/18 05:38 Toxic Vacuolation Not Reportable 08/16/18 05:38 Dohle Bodies Not Reportable 08/16/18 05:38 Pelger-Huet Anomaly Not Reportable 08/16/18 05:38 Rosy Rods Not Reportable 08/16/18 05:38 Platelet Estimate Consistent w auto 08/16/18 05:38 Clumped Platelets Rare 08/16/18 05:38 Plt Clumps, EDTA Not Reportable 08/16/18 05:38 Large Platelets Not Reportable 08/16/18 05:38 Giant Platelets Rare 08/16/18 05:38 Platelet Satelliting Not Reportable 08/16/18 05:38 Plt Morphology Comment Not Reportable 08/16/18 05:38 RBC Morphology Normal 08/16/18 05:38 Dimorphic RBCs Not Reportable 08/16/18 05:38 Polychromasia Not Reportable 08/16/18 05:38 Hypochromasia Not Reportable 08/16/18 05:38 Poikilocytosis Not Reportable 08/16/18 05:38 Anisocytosis Not Reportable 08/16/18 05:38 Microcytosis Not Reportable 08/16/18 05:38 Macrocytosis Not Reportable 08/16/18 05:38 Spherocytes Not Reportable 08/16/18 05:38 Pappenheimer Bodies Not Reportable 08/16/18 05:38 Sickle Cells Not Reportable 08/16/18 05:38 Target Cells Not Reportable 08/16/18 05:38 Tear Drop Cells Not Reportable 08/16/18 05:38 Ovalocytes Not Reportable 08/16/18 05:38 Helmet Cells Not Reportable 08/16/18 05:38 Hernandez-Sylvester Bodies Not Reportable 08/16/18 05:38 [place]set Rings Not Reportable 08/16/18 05:38 Bertha Cells Not Reportable 08/16/18 05:38 Bite Cells Not Reportable 08/16/18 05:38 Crenated Cell Not Reportable 08/16/18 05:38 Elliptocytes Not Reportable 08/16/18 05:38 Acanthocytes (Spur) Not Reportable 08/16/18 05:38 Rouleaux Not Reportable 08/16/18 05:38 Hemoglobin C Crystals Not Reportable 08/16/18 05:38 Schistocytes Not Reportable 08/16/18 05:38 Malaria parasites Not Reportable 08/16/18 05:38 Ceasar Bodies Not Reportable 08/16/18 05:38 Hem Pathologist Commnt No 08/16/18 05:38 D-Dimer 2768.33 ng/mlDDU (0-234) H 08/15/18 18:31 POC ABG pH 7.420 (7.35-7.45) 08/20/18 03:51 POC ABG pCO2 33.4 (35-45) L 08/20/18 03:51 POC ABG pO2 74 (80-105) L 08/20/18 03:51 POC ABG HCO3 21.7 (22-26 mml/L) 08/20/18 03:51 POC ABG Total CO2 23 (23-27mmol/L) 08/20/18 03:51 POC ABG O2 Sat 95 08/20/18 03:51 POC ABG Base Excess -3 ((-2) - (+3)mmol/L) 08/20/18 03:51 VBG pH 7.187 (7.320-7.420) L* 08/15/18 18:19 FiO2 60 % 08/20/18 03:51 Sodium 146 mmol/L (137-145) H D 08/20/18 05:25 Potassium 4.0 mmol/L (3.6-5.0) D 08/20/18 05:25 Chloride 111.2 mmol/L (98-107) H 08/20/18 05:25 Carbon Dioxide 23 mmol/L (22-30) 08/20/18 05:25 Anion Gap 16 mmol/L 08/20/18 05:25 BUN 24 mg/dL (7-17) H 08/20/18 05:25 Creatinine 0.8 mg/dL (0.7-1.2) 08/20/18 05:25 Estimated GFR > 60 ml/min 08/20/18 05:25 BUN/Creatinine Ratio 30 % 08/20/18 05:25 Glucose 141 mg/dL (65-100) H 08/20/18 05:25 Hemoglobin A1c 6.4 % (4-6) H 08/15/18 23:09 Lactic Acid 1.70 mmol/L (0.7-2.0) 08/16/18 05:38 Calcium 8.1 mg/dL (8.4-10.2) L 08/20/18 05:25 Phosphorus 3.50 mg/dL (2.5-4.5) D 08/20/18 05:25 Magnesium 2.20 mg/dL (1.7-2.3) 08/20/18 05:25 Total Bilirubin 0.40 mg/dL (0.1-1.2) 08/20/18 05:25 AST 65 units/L (5-40) H 08/20/18 05:25 ALT 104 units/L (7-56) H 08/20/18 05:25 Alkaline Phosphatase 105 units/L (35-129) 08/20/18 05:25 Troponin T 0.317 ng/mL (0.00-0.029) H* D 08/18/18 13:39 C-Reactive Protein 10.70 mg/dL (0.00-1.30) H 08/18/18 13:39 Total Protein 6.2 g/dL (6.3-8.2) L 08/20/18 05:25 Albumin 2.6 g/dL (3.9-5) L 08/20/18 05:25 Albumin/Globulin Ratio 0.7 % 08/20/18 05:25 Triglycerides 356 mg/dL (2-149) H 08/15/18 18:31 Cholesterol 87 mg/dL (50-199) 08/15/18 18:31 LDL Cholesterol Direct 4 mg/dL (50-130) L 08/15/18 18:31 HDL Cholesterol 10 mg/dL (40-59) L 08/15/18 18:31 Cholesterol/HDL Ratio 8.70 % 08/15/18 18:31 Urine Color Rosemarie (Yellow) 08/15/18 19:15 Urine Turbidity Cloudy (Clear) 08/15/18 19:15 Urine pH 5.0 (5.0-7.0) 08/15/18 19:15 Ur Specific [place] 1.025 (1.003-1.030) 08/15/18 19:15 Urine Protein 30 mg/dl mg/dL (Negative) 08/15/18 19:15 Urine Glucose (UA) Neg mg/dL (Negative) 08/15/18 19:15 Urine Ketones Neg mg/dL (Negative) 08/15/18 19:15 Urine Blood Mod (Negative) 08/15/18 19:15 Urine Nitrite Neg (Negative) 08/15/18 19:15 Urine Bilirubin Neg (Negative) 08/15/18 19:15 Urine Urobilinogen 2.0 mg/dL (<2.0) 08/15/18 19:15 Ur Leukocyte Esterase Mod (Negative) 08/15/18 19:15 Urine WBC (Auto) 17.0 /HPF (0.0-6.0) H 08/15/18 19:15 Urine RBC (Auto) 5.0 /HPF (0.0-6.0) 08/15/18 19:15 Urine WBC Clumps 2+ /HPF 08/15/18 19:15 Amorphous Crystals 1+ 08/15/18 19:15 Hyaline Casts 54 /LPF 08/15/18 19:15 Granular Casts 14 /LPF 08/15/18 19:15 Urine Mucus Few /HPF 08/15/18 19:15 Salicylates < 0.3 mg/dL (2.8-20.0) L 08/15/18 19:14 Urine Opiates Screen Presumptive positive 08/15/18 19:15 Urine Methadone Screen Presumptive negative 08/15/18 19:15 Acetaminophen < 5.0 ug/mL (10.0-30.0) L 08/15/18 19:14 Ur Barbiturates Screen Presumptive negative 08/15/18 19:15 Ur Phencyclidine Scrn Presumptive negative 08/15/18 19:15 Ur Amphetamines Screen Presumptive negative 08/15/18 19:15 U Benzodiazepines Scrn Presumptive negative 08/15/18 19:15 Urine Cocaine Screen Presumptive negative 08/15/18 19:15 U Marijuana (THC) Screen Presumptive negative 08/15/18 19:15 Drugs of Abuse Note Disclamer 08/15/18 19:15 HIV 1&2 Antibody Rapid Non react (Non React) 08/18/18 13:39 HIV P24 Antigen Non react (Non React) 08/18/18 13:39 Active Medications - Current Medications Current Medications: Generic Name Dose Route Start Last Admin Trade Name Freq PRN Reason Stop Dose Admin Acetaminophen 650 mg 08/15/18 22:12 08/19/18 17:33 Tylenol PO 650 mg Q4H PRN Administration Pain MILD(1-3)/Fever >100.5/MONDRAGON Acetaminophen 650 mg 08/16/18 17:01 08/16/18 17:11 Tylenol [place] 650 mg Q4H PRN Administration Pain, Mild (1-3) Albuterol 2.5 mg 08/17/18 17:00 Proventil IH Q3HRT PRN Shortness Of Breath Albuterol/Ipratropium 1 ampul 08/17/18 16:00 08/20/18 08:04 Duoneb *Not For Prn Use* IH Not Given QIDRT LAMAR Lipase/Protease/Amylase 1 each 08/17/18 15:55 Pancresam Elizabeth 10,500 Unit FEEDTUBE PRN PRN For Clogged Feeding Tube Arformoterol Tartrate 15 mcg 08/18/18 20:00 08/20/18 08:03 Brovana Nebu IH 15 mcg Q12HRT LAMAR Administration Budesonide 0.5 mg 08/18/18 20:00 08/20/18 08:03 Pulmicort IH 0.5 mg Q12HRT LAMAR Administration Carvedilol 6.25 mg 08/15/18 22:45 08/19/18 21:58 Coreg PO 6.25 mg BID LAMAR Administration Duloxetine HCl 60 mg 08/16/18 10:00 08/19/18 10:12 Cymbalta PO Not Given QDAY [facility] Enoxaparin Sodium 40 mg 08/17/18 22:00 08/19/18 21:56 Lovenox SUB-Q 40 mg QDAY@2200 LAMAR Administration Famotidine 20 mg 08/19/18 10:00 08/19/18 21:58 Pepcid PO 20 mg BID LAMAR Administration Fentanyl 50 mcg 08/15/18 21:55 08/17/18 13:36 Sublimaze IV 50 mcg Q10MIN PRN Administration ANALGESIA Hydralazine HCl 10 mg 08/19/18 13:59 08/19/18 15:06 Apresoline IV 10 mg Q3H PRN Administration SBP > 160, DBP > 100 Hydromorphone HCl 0.5 mg 08/15/18 22:12 Dilaudid IV Q3H PRN Pain , Severe (7-10) Hydrophilic Ointment 1 applic 08/15/18 21:55 Vaseline Lip Therapy TP Q2HR PRN Dry Lips Fentanyl Citrate 2,000 mcg in 100 mls @ 4.082 mls/hr 08/15/18 22:00 08/20/18 01:31 Fentanyl Drip Premix IV 3 mcg/kg/hr TITR LAMAR 12.247 mls/hr Administration Protocol 1 MCG/KG/HR Propofol 1,000 mg in 100 mls @ 2.449 mls/hr 08/15/18 21:15 08/19/18 16:20 Diprivan 10 Mg/Ml IV 15 mcg/kg/min TITR LAMAR 7.348 mls/hr Titration Protocol 5 MCG/KG/MIN Norepinephrine 4 mg in 250 mls @ 7.5 mls/hr 08/17/18 20:00 Levophed Drip 4 Mg/Ns 250 Ml IV TITR LAMAR Protocol 2 MCG/MIN Fluconazole 200 mls @ 100 mls/hr 08/19/18 10:00 08/19/18 12:04 Diflucan IV 100 mls/hr Q24H LAMAR Administration Protocol Dextrose 1,000 mls @ 75 mls/hr 08/19/18 10:00 08/20/18 06:58 D5w IV 75 mls/hr DIRECT LAMAR Administration Metronidazole 500 mg in 100 mls @ 100 mls/hr 08/19/18 14:00 08/20/18 07:50 Flagyl 500 Mg/100 Ml IV Infused Q8HR LAMAR Infusion Protocol Ceftriaxone Sodium 2 gm in 100 mls @ 200 mls/hr 08/20/18 10:00 Rocephin/Ns 2 Gm/100 Ml IV Q24HR LAMAR Protocol Metoclopramide HCl 5 mg 08/15/18 22:50 Reglan IV Q6H PRN Nausea And Vomiting Ondansetron HCl 4 mg 08/15/18 22:12 Zofran IV Q8H PRN Nausea And Vomiting Simple Syrup 15 ml 08/17/18 15:55 Simple Syrup FEEDTUBE PRN PRN Hypoglycemia Simple Syrup 30 ml 08/17/18 15:55 Simple Syrup FEEDTUBE PRN PRN Hypoglycemia Sodium Bicarbonate 325 mg 08/17/18 15:55 Sodium Bicarbonate FEEDTUBE PRN PRN For Clogged Feeding Tube Sodium Chloride 10 ml 08/16/18 10:00 08/19/18 21:58 Sodium Chloride Flush Syringe 10 Ml IV 10 ml BID LAMAR Administration Sodium Chloride 10 ml 08/15/18 22:12 08/18/18 21:52 Sodium Chloride Flush Syringe 10 Ml IV 10 ml PRN PRN Administration LINE FLUSH Nutrition/Malnutrition Assess - Dietary Evaluation Nutrition/Malnutrition Findings: Nutrition Notes Start: 08/17/18 13:57 Freq: Status: Active Protocol: Document 08/19/18 12:05 RD (Rec: 08/19/18 13:19 RD [email or web address]) Co-Sign 08/19/18 12:05 OL Nutrition Notes Initial or Follow up Reassessment Current Diagnosis Acute Kidney Injury,COPD, Diabetes,Sepsis,Hypertension, Respiratory Failure, Hyperlipidemia Other Pertinent Diagnosis AMS, hypokalemia, NSTEMI, encephalopathy, pneu, hypernatermia, shock liver Current Diet Vital AF 1.2 at 60mL/hr Labs/Tests Na 154 K 3.3 Cl 115 BUN 19 Pertinent Medications Propofol Height 5 ft 7 in Weight 84.6 kg [place] Body Weight (kg) 61.36 BMI 29.2 Subjective/Other Information Per RN, pt tolerating TF well. TF running at goal rate. #1 Nutrition Diagnosis Inadequate oral intake Diagnosis Progress(for reassessment Continues documentation) Is patient on ventilator? Yes Is Patient Ambulatory and/or Out of Bed No REE-([facility]-confined to bed) [phone] Calculation Used for Recommendations [facility] Additional Notes Protein needs: (1.2-2g/kg) 97- 162g/day Fluid needs: 1ml/kcal Nutrition Intervention Change Diet Order: TF Nutrition Support: Vital AF 1.2 at 60mL/hr with 150mL flush q4h. Kcal 1,728 Protein (gm) 108 Fluid (mL) 1,168 Goal #1 Tolerate TF Goal #2 Meet at least 75% of nutrient needs via TF Anticipated Discharge Needs: Unable to determine at this time Follow-Up By: 08/24/18 Additional Comments f/u: stable TF, Na labs
[2018-08-20] MEDS: COREG PO SCH ×2 (09:28→21:16)
[2018-08-20] MEDS: PEPCID PO SCH ×2 (09:28→21:17)
[2018-08-20] MEDS: TYLENOL PO PRN ×3 (09:29→20:23)
[2018-08-20] MEDS: CYMBALTA PO SCH (09:32)
[2018-08-20] MEDS: DIFLUCAN 200 ML IV SCH (09:32)
[2018-08-20] MEDS: SODIUM CHLORIDE FLUSH SYRINGE 10 ML IV SCH ×2 (09:33→21:17)
[2018-08-20] MEDS: ROCEPHIN/NS 2 GM/100 ML 2 GM/100 ML BAG IV SCH (10:01)
[2018-08-20] MEDS: DIPRIVAN 10 MG/ML 1,000 MG/100 ML BOTTLE IV SCH ×2 (10:34→15:53)
--- NOTE | 2018-08-20 11:35 | Progress Note ---
Assessment and Plan 1. New onset cardiomyopathy LV ejection fraction 25-30% 2. Severe polymicrobial sepsis/septic shock 3. Respiratory failure 4. Altered mental status probably secondary to metabolic encephalopathy Plan. Continue supportive cardiac management. Continue IV antibiotics wean off e sedation as tolerated Subjective Date of service: 08/20/18 Principal diagnosis: Acute hypoxemic hypercapnic Resp failure; AE-COPD; Acute kidney injury Interval history: Unresponsive intubated and sedated Objective Vital Signs Temp Pulse Pulse Pulse Resp Resp BP 08/20/18 10:31 84 42 H 98/57 08/20/18 10:00 98 H 49 H 130/80 08/20/18 09:30 99 H 42 H 139/86 08/20/18 09:28 98 H 166/83 08/20/18 09:00 97 H 45 H 166/83 08/20/18 08:30 93 H 41 H 160/80 08/20/18 08:24 92 H 34 H 08/20/18 08:00 100.3 F H 98 H 98 H 95 H 29 H 43 H 150/70 08/20/18 07:30 92 H 30 H 144/77 08/20/18 07:00 94 H 31 H 151/84 08/20/18 06:31 92 H 30 H 151/82 08/20/18 06:01 92 H 30 H 156/84 08/20/18 05:30 90 24 141/94 08/20/18 05:00 88 33 H 169/94 08/20/18 04:30 85 34 H 165/89 08/20/18 04:00 84 86 26 H 163/99 08/20/18 03:37 88 152/72 08/20/18 03:31 81 33 H 152/72 08/20/18 03:00 77 39 H 152/79 08/20/18 02:31 76 34 H 144/81 08/20/18 02:00 72 72 35 H 138/75 08/20/18 01:30 72 38 H 129/67 08/20/18 01:00 74 38 H 128/69 08/20/18 00:30 74 39 H 128/69 08/20/18 00:00 99.8 F H 73 73 30 H 122/68 08/19/18 23:40 85 122/66 08/19/18 23:30 73 30 H 124/64 08/19/18 23:19 77 40 H 135/69 08/19/18 23:00 77 36 H 122/66 08/19/18 22:30 82 36 H 135/69 08/19/18 22:00 81 36 H 132/73 08/19/18 21:58 81 128/72 08/19/18 21:30 81 37 H 128/72 08/19/18 21:00 85 21 120/66 08/19/18 20:30 89 20 129/69 08/19/18 20:03 91 H 31 H 08/19/18 20:00 99.6 F 90 90 22 150/87 08/19/18 19:48 88 150/87 08/19/18 19:47 89 31 H 08/19/18 19:30 90 24 150/87 08/19/18 19:00 91 H 28 H 145/78 08/19/18 18:30 92 H 23 152/72 08/19/18 18:00 91 H 37 H 141/71 08/19/18 17:30 93 H 34 H 143/76 08/19/18 17:00 87 32 H 134/73 08/19/18 16:30 92 H 97 H 38 H 40 H 144/72 08/19/18 16:18 85 94 H 39 H 144/72 08/19/18 16:00 102.2 F H 88 88 49 H 146/65 08/19/18 15:31 87 49 H 165/89 08/19/18 15:06 90 165/89 08/19/18 15:00 92 H 43 H 165/89 08/19/18 14:31 90 43 H 162/91 08/19/18 14:00 89 42 H 162/91 08/19/18 13:31 87 43 H 162/75 08/19/18 13:00 80 42 H 166/93 08/19/18 12:31 82 43 H 181/98 08/19/18 12:01 76 38 H 181/98 08/19/18 12:00 101.6 F H 41 H 08/19/18 11:58 79 39 H 08/19/18 11:49 77 181/98 08/19/18 11:48 77 36 H 08/19/18 11:37 40 H Pulse Ox 08/20/18 10:31 94 08/20/18 10:00 93 03/23/19 09:30 92 08/20/18 09:28 08/20/18 09:00 90 08/20/18 08:30 91 08/20/18 08:24 08/20/18 08:00 91 08/20/18 07:30 92 08/20/18 07:00 92 08/20/18 06:31 95 08/20/18 06:01 96 08/20/18 05:30 91 08/20/18 05:00 92 08/20/18 04:30 91 08/20/18 04:00 91 08/20/18 03:37 94 08/20/18 03:31 90 08/20/18 03:00 91 08/20/18 02:31 91 08/20/18 02:00 91 08/20/18 01:30 94 08/20/18 01:00 94 08/20/18 00:30 92 08/20/18 00:00 91 08/19/18 23:40 94 08/19/18 23:30 92 08/19/18 23:19 94 08/19/18 23:00 94 08/19/18 22:30 92 08/19/18 22:00 91 08/19/18 21:58 08/19/18 21:30 93 08/19/18 21:00 91 08/19/18 20:30 91 08/19/18 20:03 08/19/18 20:00 95 08/19/18 19:48 97 08/19/18 19:47 08/19/18 19:30 95 08/19/18 19:00 92 08/19/18 18:30 91 08/19/18 18:00 91 08/19/18 17:30 91 08/19/18 17:00 92 08/19/18 16:30 91 08/19/18 16:18 92 08/19/18 16:00 87 08/19/18 15:31 88 08/19/18 15:06 08/19/18 15:00 92 08/19/18 14:31 94 08/19/18 14:00 90 08/19/18 13:31 94 08/19/18 13:00 92 08/19/18 12:31 94 08/19/18 12:01 91 08/19/18 12:00 94 08/19/18 11:58 08/19/18 11:49 96 08/19/18 11:48 08/19/18 11:37 - Physical Examination General: Other (intubated and sedated) HEENT: Positive: PERRL, Other (ET tube in place) Neck: Positive: neck supple, trachea midline Cardiac: Positive: Reg Rate and Rhythm, S1/S2, S3, PMI, Laterally Displaced Lungs: Positive: clear to auscultation, No Wheeze, Rales, Rhonchi Abdomen: Positive: Soft, Active Bowel Sounds Extremities: Absent: edema - Labs and Meds Cardiac Enzymes 08/20/18 Range/Units 05:25 AST 65 H (5-40) units/L Comprehensive Metabolic Panel 08/20/18 Range/Units 05:25 Sodium 146 H D (137-145) mmol/L Potassium 4.0 D (3.6-5.0) mmol/L Chloride 111.2 H (98-107) mmol/L Carbon Dioxide 23 (22-30) mmol/L BUN 24 H (7-17) mg/dL Creatinine 0.8 (0.7-1.2) mg/dL Glucose 141 H (65-100) mg/dL Calcium 8.1 L (8.4-10.2) mg/dL AST 65 H (5-40) units/L ALT 104 H (7-56) units/L Alkaline Phosphatase 105 (35-129) units/L Total Protein 6.2 L (6.3-8.2) g/dL Albumin 2.6 L (3.9-5) g/dL - Allied health notes Allied health notes reviewed: nursing
--- NOTE | 2018-08-20 12:36 | Progress Note ---
Assessment and Plan Assessment and Plan Acute hypoxic-hypercapnic respiratory failure on MVS h/o COPD Acute encephalopathy( toxic-metabolic) Hypokalemia Acute kidney injury h/o Chronic narcotic dependence Aspiration pneumonia/CAP Hypokalemia GNR in tracheal aspirate Hypernatremia Medical Decision Making -Not tolerating weaning trials, tachypnea on SBTs. Will start scheduled anxieolytics, continue with daily SATs and SBTs. Added night time dose of Seroquel , monitor response Discussed extensively with the nurse the need to implement measures to mitigate ICU delirium/psychosis. Currently mental status is precluding SBT. Continue all other care as documented below. Critical care bundles addressed. -Continue full MVS -Wean supplemental oxygen to keep O2 sats 88-90% -Lung protective strategies -Oxygen restrictive strategies -PRN ABGs/CXR -Continue antibiotics to complete course -VAP bundle addressed -Avoid benzodiazepines, use high dose fentanyl for agitation and analgesia -Volume resuscitation. Monitor renal indices -Daily SAT's & SBT's -Sedation target for RASS 0 to -1 -Stress ulcer prophylaxis -VTE prophylaxis -Continue tube feedings -Aspiration precautions -Free water flushes for hypernatremia -Aspiration precautions -Accuchecks with glycemic control. Target glucose of 140-180 mg/dL -Continue bronchodilators with pulmonary hygiene per RT -Maintenance of sleep -wake cycle -Mobility as tolerated by hemodynamics -Influenza and pneumonia vaccination per protocol ..care plan discussed at length with RN/RT at the bedside PROGNOSIS :GUARDED CONDITION: CRITICAL CODE STATUS: FULL CODE The high probability of a clinically significant, sudden or life-threatening deterioration of the [respiratory, neurology, renal] system(s) required my full and direct attention, intervention and personal management. The aggregate critical care time was [35] minutes without overlap. Time includes spent on; [x] Data Review and interpretation [x] Patient assessment and monitoring of vital signs [x] Documentation [x] Medication orders and management Subjective Date of service: 08/20/18 Principal diagnosis: Acute hypoxemic hypercapnic Resp failure; AE-COPD; Acute kidney injury Interval history: Follow up: Aspiration PNA, Abnormal CXR, Hypotension, Acute renal failure, Acute encephaloapthy, Acute hypoxemic respiratory failure onMVS Seen and examined. Vitals, labs, medications, chart and imaging reviewed. 24 hours events reviewed. Agitation overnight per RN. No fevers, no vomiting. Remains critically ill on full mechanical ventilatory support, no vasopresors, on fentanyl and low dose propofol. Altered mental status persists. Son and at the bedside Objective Vital Signs - 12hr 08/20/18 08/20/18 08/20/18 01:00 01:30 02:00 Temperature Pulse Rate 74 72 72 Pulse Rate [ Anterior Bilateral Throughout] Pulse Rate [ 72 Right Dorsalis Pedis] Respiratory 38 H 38 H 35 H Rate Respiratory Rate [Anterior Bilateral Throughout] Blood Pressure 128/69 129/67 138/75 O2 Sat by Pulse 94 94 91 Oximetry 08/20/18 08/20/18 08/20/18 02:31 03:00 03:31 Temperature Pulse Rate 76 77 81 Pulse Rate [ Anterior Bilateral Throughout] Pulse Rate [ Right Dorsalis Pedis] Respiratory 34 H 39 H 33 H Rate Respiratory Rate [Anterior Bilateral Throughout] Blood Pressure 144/81 152/79 152/72 O2 Sat by Pulse 91 91 90 Oximetry 08/20/18 08/20/18 08/20/18 03:37 04:00 04:30 Temperature Pulse Rate 88 84 85 Pulse Rate [ Anterior Bilateral Throughout] Pulse Rate [ 86 Right Dorsalis Pedis] Respiratory 26 H 34 H Rate Respiratory Rate [Anterior Bilateral Throughout] Blood Pressure 152/72 163/99 165/89 O2 Sat by Pulse 94 91 91 Oximetry 08/20/18 08/20/18 08/20/18 05:00 05:30 06:01 Temperature Pulse Rate 88 90 92 H Pulse Rate [ Anterior Bilateral Throughout] Pulse Rate [ Right Dorsalis Pedis] Respiratory 33 H 24 30 H Rate Respiratory Rate [Anterior Bilateral Throughout] Blood Pressure 169/94 141/94 156/84 O2 Sat by Pulse 92 91 96 Oximetry 08/20/18 08/20/18 08/20/18 06:31 07:00 07:30 Temperature Pulse Rate 92 H 94 H 92 H Pulse Rate [ Anterior Bilateral Throughout] Pulse Rate [ Right Dorsalis Pedis] Respiratory 30 H 31 H 30 H Rate Respiratory Rate [Anterior Bilateral Throughout] Blood Pressure 151/82 151/84 144/77 O2 Sat by Pulse 95 92 92 Oximetry 08/20/18 08/20/18 08/20/18 08:00 08:24 08:30 Temperature 100.3 F H Pulse Rate 98 H 93 H Pulse Rate [ 98 H 92 H Anterior Bilateral Throughout] Pulse Rate [ 95 H Right Dorsalis Pedis] Respiratory 29 H 41 H Rate Respiratory 43 H 34 H Rate [Anterior Bilateral Throughout] Blood Pressure 150/70 160/80 O2 Sat by Pulse 91 91 Oximetry 08/20/18 08/20/18 08/20/18 09:00 09:28 09:30 Temperature Pulse Rate 97 H 98 H 99 H Pulse Rate [ Anterior Bilateral Throughout] Pulse Rate [ Right Dorsalis Pedis] Respiratory 45 H 42 H Rate Respiratory Rate [Anterior Bilateral Throughout] Blood Pressure 166/83 166/83 139/86 O2 Sat by Pulse 90 92 Oximetry 08/20/18 08/20/18 08/20/18 10:00 10:31 11:04 Temperature Pulse Rate 98 H 84 Pulse Rate [ Anterior Bilateral Throughout] Pulse Rate [ Right Dorsalis Pedis] Respiratory 49 H 42 H 39 H Rate Respiratory Rate [Anterior Bilateral Throughout] Blood Pressure 130/80 98/57 O2 Sat by Pulse 93 94 Oximetry 08/20/18 08/20/18 12:00 12:34 Temperature 102.3 F H Pulse Rate 81 Pulse Rate [ Anterior Bilateral Throughout] Pulse Rate [ Right Dorsalis Pedis] Respiratory Rate Respiratory Rate [Anterior Bilateral Throughout] Blood Pressure 111/59 O2 Sat by Pulse 98 Oximetry Constitutional: no acute distress, appears uncomfortable, other (elderly looking CF, normocephalic and atraumatic) Eyes: non-icteric ENT: oropharynx moist, other (ETT 23 cm MARTHA) Neck: supple, no lymphadenopathy, no JVD, other (no thyromegaly) Effort: mildly labored Ascultation: Bilateral: diminished breath sounds, rales, rhonchi (right lung field) Percussion: Bilateral: not dull Cardiovascular: regular rate and rhythm Gastrointestinal: normoactive bowel sounds, soft, non-tender, non-distended Integumentary: normal Extremities: no cyanosis, no edema, no ischemia or petechiae Neurologic: pupils equal and round, unable to assess (encephalopathic) Psychiatric: other (unable to assess) CBC and BMP: 08/23/18 Unknown 08/23/18 Unknown ABG, PT/INR, D-dimer: ABG POC ABG pH 7.420 (7.35-7.45) 08/20/18 03:51 POC ABG pCO2 33.4 (35-45) L 08/20/18 03:51 POC ABG pO2 74 (80-105) L 08/20/18 03:51 POC ABG HCO3 21.7 (22-26 mml/L) 08/20/18 03:51 POC ABG Total CO2 23 (23-27mmol/L) 08/20/18 03:51 POC ABG O2 Sat 95 08/20/18 03:51 PT/INR, D-dimer D-Dimer 2768.33 ng/mlDDU (0-234) H 08/15/18 18:31 Abnormal lab findings: Abnormal Labs 08/15/18 08/15/18 08/15/18 17:52 17:52 17:52 WBC 12.7 H RBC 3.25 L Hgb Hct Seg Neuts % (Manual) Lymphocytes % (Manual) 6.0 L Nucleated RBC % Lymphocytes # (Manual) 0.8 L D-Dimer POC ABG pH POC ABG pCO2 POC ABG pO2 VBG pH Sodium Potassium 3.4 L Chloride 94.6 L Carbon Dioxide 17 L BUN 67 H Creatinine 3.5 H Glucose 131 H Hemoglobin A1c Lactic Acid 5.20 H* Calcium 7.6 L Phosphorus AST 887 H ALT 316 H Troponin T C-Reactive Protein Total Protein Albumin 3.1 L Triglycerides LDL Cholesterol Direct HDL Cholesterol Urine WBC (Auto) Salicylates Acetaminophen 08/15/18 08/15/18 08/15/18 18:11 18:19 18:31 WBC RBC Hgb Hct Seg Neuts % (Manual) Lymphocytes % (Manual) Nucleated RBC % Lymphocytes # (Manual) D-Dimer 2768.33 H POC ABG pH 7.173 L POC ABG pCO2 47.8 H POC ABG pO2 177 H VBG pH 7.187 L* Sodium Potassium Chloride Carbon Dioxide BUN Creatinine Glucose Hemoglobin A1c Lactic Acid Calcium Phosphorus AST ALT Troponin T C-Reactive Protein Total Protein Albumin Triglycerides LDL Cholesterol Direct HDL Cholesterol Urine WBC (Auto) Salicylates Acetaminophen 08/15/18 08/15/18 08/15/18 18:31 19:14 19:14 WBC RBC Hgb Hct Seg Neuts % (Manual) Lymphocytes % (Manual) Nucleated RBC % Lymphocytes # (Manual) D-Dimer POC ABG pH POC ABG pCO2 POC ABG pO2 VBG pH Sodium Potassium Chloride Carbon Dioxide BUN Creatinine Glucose Hemoglobin A1c Lactic Acid 2.70 H* Calcium Phosphorus AST ALT Troponin T 0.454 H* C-Reactive Protein Total Protein Albumin Triglycerides 356 H LDL Cholesterol Direct 4 L HDL Cholesterol 10 L Urine WBC (Auto) Salicylates < 0.3 L Acetaminophen 08/15/18 08/15/18 08/15/18 19:14 19:15 23:09 WBC RBC Hgb Hct Seg Neuts % (Manual) Lymphocytes % (Manual) Nucleated RBC % Lymphocytes # (Manual) D-Dimer POC ABG pH POC ABG pCO2 POC ABG pO2 VBG pH Sodium Potassium Chloride Carbon Dioxide BUN Creatinine Glucose Hemoglobin A1c Lactic Acid 3.20 H* Calcium Phosphorus AST ALT Troponin T C-Reactive Protein Total Protein Albumin Triglycerides LDL Cholesterol Direct HDL Cholesterol Urine WBC (Auto) 17.0 H Salicylates Acetaminophen < 5.0 L 08/15/18 08/16/18 08/16/18 23:09 01:41 05:38 WBC RBC 3.07 L Hgb 9.8 L Hct 28.7 L Seg Neuts % (Manual) 84.0 H Lymphocytes % (Manual) 6.0 L Nucleated RBC % 4.0 H Lymphocytes # (Manual) 0.5 L D-Dimer POC ABG pH 7.323 L POC ABG pCO2 34.7 L POC ABG pO2 78 L VBG pH Sodium Potassium Chloride Carbon Dioxide BUN Creatinine Glucose Hemoglobin A1c 6.4 H Lactic Acid Calcium Phosphorus AST ALT Troponin T C-Reactive Protein Total Protein Albumin Triglycerides LDL Cholesterol Direct HDL Cholesterol Urine WBC (Auto) Salicylates Acetaminophen 08/16/18 08/16/18 08/17/18 05:38 22:43 03:42 WBC RBC Hgb Hct Seg Neuts % (Manual) Lymphocytes % (Manual) Nucleated RBC % Lymphocytes # (Manual) D-Dimer POC ABG pH POC ABG pCO2 POC ABG pO2 VBG pH Sodium Potassium 2.9 L* 3.1 L 2.9 L* Chloride 108.8 H 111.9 H Carbon Dioxide 17 L 19 L 21 L BUN 62 H 40 H 33 H Creatinine 2.0 H Glucose 139 H 145 H Hemoglobin A1c Lactic Acid Calcium 7.8 L 8.3 L Phosphorus 1.50 L AST 619 H ALT 353 H Troponin T C-Reactive Protein Total Protein 6.1 L Albumin 2.8 L Triglycerides LDL Cholesterol Direct HDL Cholesterol Urine WBC (Auto) Salicylates Acetaminophen 08/17/18 08/17/18 08/18/18 11:02 16:42 03:28 WBC RBC Hgb Hct Seg Neuts % (Manual) Lymphocytes % (Manual) Nucleated RBC % Lymphocytes # (Manual) D-Dimer POC ABG pH 7.483 H 7.499 H POC ABG pCO2 POC ABG pO2 VBG pH Sodium 147 H Potassium 3.2 L Chloride 115.8 H Carbon Dioxide BUN 23 H Creatinine Glucose 121 H Hemoglobin A1c Lactic Acid Calcium 8.1 L Phosphorus 2.30 L D AST ALT Troponin T C-Reactive Protein Total Protein Albumin Triglycerides LDL Cholesterol Direct HDL Cholesterol Urine WBC (Auto) Salicylates Acetaminophen 08/18/18 08/18/18 08/18/18 04:10 13:39 13:39 WBC RBC Hgb Hct Seg Neuts % (Manual) Lymphocytes % (Manual) Nucleated RBC % Lymphocytes # (Manual) D-Dimer POC ABG pH POC ABG pCO2 POC ABG pO2 VBG pH Sodium 147 H Potassium 3.3 L Chloride 111.9 H Carbon Dioxide BUN 21 H Creatinine Glucose 113 H Hemoglobin A1c Lactic Acid Calcium Phosphorus 1.50 L D AST ALT Troponin T 0.317 H* D C-Reactive Protein 10.70 H Total Protein Albumin Triglycerides LDL Cholesterol Direct HDL Cholesterol Urine WBC (Auto) Salicylates Acetaminophen 08/18/18 08/19/18 08/19/18 16:51 03:47 04:15 WBC RBC Hgb Hct Seg Neuts % (Manual) Lymphocytes % (Manual) Nucleated RBC % Lymphocytes # (Manual) D-Dimer POC ABG pH 7.454 H 7.482 H POC ABG pCO2 POC ABG pO2 65 L VBG pH Sodium 154 H Potassium 3.3 L Chloride 115.1 H Carbon Dioxide BUN 19 H Creatinine Glucose 117 H Hemoglobin A1c Lactic Acid Calcium 7.8 L Phosphorus AST ALT Troponin T C-Reactive Protein Total Protein Albumin Triglycerides LDL Cholesterol Direct HDL Cholesterol Urine WBC (Auto) Salicylates Acetaminophen 08/19/18 08/20/18 08/20/18 16:18 03:51 05:25 WBC RBC Hgb Hct Seg Neuts % (Manual) Lymphocytes % (Manual) Nucleated RBC % Lymphocytes # (Manual) D-Dimer POC ABG pH 7.483 H POC ABG pCO2 33.4 L POC ABG pO2 51 L 74 L VBG pH Sodium 146 H D Potassium Chloride 111.2 H Carbon Dioxide BUN 24 H Creatinine Glucose 141 H Hemoglobin A1c Lactic Acid Calcium 8.1 L Phosphorus AST 65 H ALT 104 H Troponin T C-Reactive Protein Total Protein 6.2 L Albumin 2.6 L Triglycerides LDL Cholesterol Direct HDL Cholesterol Urine WBC (Auto) Salicylates Acetaminophen Chest x-ray: image reviewed (persistent right lower lobe infiltrate) Allied health notes reviewed: RT
--- NOTE | 2018-08-20 13:01 | Progress Note ---
Assessment and Plan 1. Acute kidney injury: Likely hemodynamic CHANDANA in the setting of volume depletion. Renal function is better. Monitor renal function. Avoid nephrotoxic agents. Meds dosage based on GFR. 2. FEN: Hypokalemia, improved. Hypernatremia, improving. Metabolic acidosis, improved. 3. Acute encephalopathy. 4. Respiratory failure: On vent. 5. Right lung pneumonia. 6. Shock Liver. D/w her at the bedside. Subjective Date of service: 08/20/18 Principal diagnosis: Acute hypoxemic hypercapnic Resp failure; AE-COPD; Acute kidney injury Interval history: Patient was seen and examined at the bedside. Objective - Vital Signs Vital signs: Vital Signs - 12hr 08/20/18 08/20/18 08/20/18 01:30 02:00 02:31 Temperature Pulse Rate 72 72 76 Pulse Rate [ Anterior Bilateral Throughout] Pulse Rate [ 72 Right Dorsalis Pedis] Respiratory 38 H 35 H 34 H Rate Respiratory Rate [Anterior Bilateral Throughout] Blood Pressure 129/67 138/75 144/81 O2 Sat by Pulse 94 91 91 Oximetry 08/20/18 08/20/18 08/20/18 03:00 03:31 03:37 Temperature Pulse Rate 77 81 88 Pulse Rate [ Anterior Bilateral Throughout] Pulse Rate [ Right Dorsalis Pedis] Respiratory 39 H 33 H Rate Respiratory Rate [Anterior Bilateral Throughout] Blood Pressure 152/79 152/72 152/72 O2 Sat by Pulse 91 90 94 Oximetry 08/20/18 08/20/18 08/20/18 04:00 04:30 05:00 Temperature Pulse Rate 84 85 88 Pulse Rate [ Anterior Bilateral Throughout] Pulse Rate [ 86 Right Dorsalis Pedis] Respiratory 26 H 34 H 33 H Rate Respiratory Rate [Anterior Bilateral Throughout] Blood Pressure 163/99 165/89 169/94 O2 Sat by Pulse 91 91 92 Oximetry 08/20/18 08/20/18 08/20/18 05:30 06:01 06:31 Temperature Pulse Rate 90 92 H 92 H Pulse Rate [ Anterior Bilateral Throughout] Pulse Rate [ Right Dorsalis Pedis] Respiratory 24 30 H 30 H Rate Respiratory Rate [Anterior Bilateral Throughout] Blood Pressure 141/94 156/84 151/82 O2 Sat by Pulse 91 96 95 Oximetry 08/20/18 08/20/18 08/20/18 07:00 07:30 08:00 Temperature 100.3 F H Pulse Rate 94 H 92 H 98 H Pulse Rate [ 98 H Anterior Bilateral Throughout] Pulse Rate [ 95 H Right Dorsalis Pedis] Respiratory 31 H 30 H 29 H Rate Respiratory 43 H Rate [Anterior Bilateral Throughout] Blood Pressure 151/84 144/77 150/70 O2 Sat by Pulse 92 92 91 Oximetry 08/20/18 08/20/18 08/20/18 08:24 08:30 09:00 Temperature Pulse Rate 93 H 97 H Pulse Rate [ 92 H Anterior Bilateral Throughout] Pulse Rate [ Right Dorsalis Pedis] Respiratory 41 H 45 H Rate Respiratory 34 H Rate [Anterior Bilateral Throughout] Blood Pressure 160/80 166/83 O2 Sat by Pulse 91 90 Oximetry 08/20/18 08/20/18 08/20/18 09:28 09:30 10:00 Temperature Pulse Rate 98 H 99 H 80 Pulse Rate [ Anterior Bilateral Throughout] Pulse Rate [ Right Dorsalis Pedis] Respiratory 42 H 49 H Rate Respiratory Rate [Anterior Bilateral Throughout] Blood Pressure 166/83 139/86 130/80 O2 Sat by Pulse 92 93 Oximetry 08/20/18 08/20/18 08/20/18 10:31 11:00 11:04 Temperature Pulse Rate 84 82 Pulse Rate [ Anterior Bilateral Throughout] Pulse Rate [ Right Dorsalis Pedis] Respiratory 42 H 40 H 39 H Rate Respiratory Rate [Anterior Bilateral Throughout] Blood Pressure 98/57 103/56 O2 Sat by Pulse 94 95 Oximetry 08/20/18 08/20/18 08/20/18 11:30 12:00 12:30 Temperature 102.3 F H Pulse Rate 85 80 90 Pulse Rate [ Anterior Bilateral Throughout] Pulse Rate [ 85 Right Dorsalis Pedis] Respiratory 40 H 29 H 35 H Rate Respiratory Rate [Anterior Bilateral Throughout] Blood Pressure 113/62 111/63 111/59 O2 Sat by Pulse 94 94 Oximetry 08/20/18 12:34 Temperature Pulse Rate 81 Pulse Rate [ Anterior Bilateral Throughout] Pulse Rate [ Right Dorsalis Pedis] Respiratory Rate Respiratory Rate [Anterior Bilateral Throughout] Blood Pressure 111/59 O2 Sat by Pulse 98 Oximetry - General Appearance General appearance: well-developed, well-nourished, appears stated age, intubated, other (on vent) EENT: ATNC, PERRL Neck: supple Respiratory: Present: Clear to Ascultation Cardiology: regular, S1S2, no murmurs Gastrointestinal: normoactive bowel sounds, no tenderness, no distended Integumentary: no rash, warm and dry Neurologic: other (not responding) Musculoskeletal: other (no edema) - Lab 08/21/18 05:45 08/21/18 05:45 Most recent lab results Calcium 8.1 mg/dL (8.4-10.2) L 08/20/18 05:25 Phosphorus 3.50 mg/dL (2.5-4.5) D 08/20/18 05:25 Magnesium 2.20 mg/dL (1.7-2.3) 08/20/18 05:25 Medications & Allergies - Medications Allergies/Adverse Reactions: Allergies No Known Allergies Allergy (Unverified 08/15/18 16:49) Home Medications: Home Medications Medication Instructions Recorded Confirmed Last Taken Type Carvedilol 6.25 mg PO BID 08/15/18 08/15/18 Unknown History DULoxetine 60 mg PO QDAY 08/15/18 08/15/18 Unknown History Gabapentin 600 mg PO Q6HR PRN 08/15/18 08/15/18 Unknown History Methylphenidate 5 mg PO TID 08/15/18 08/15/18 Unknown History Morphabond ER 60 mg PO Q12HR 08/15/18 08/15/18 Unknown History Pravastatin Sodium 10 mg PO QDAY 08/15/18 08/15/18 Unknown History Tizanidine HCl 4 mg PO Q12HR 08/15/18 08/15/18 Unknown History oxyCODONE /ACETAMINOPHEN 7.5 - 325 mg PO Q8HR 08/15/18 08/15/18 Unknown History Active Medications: Generic Name Dose Route Start Last Admin Trade Name Freq PRN Reason Stop Dose Admin Acetaminophen 650 mg 08/15/18 22:12 08/20/18 12:03 Tylenol PO 650 mg Q4H PRN Administration Pain MILD(1-3)/Fever >100.5/MONDRAGON Acetaminophen 650 mg 08/16/18 17:01 08/16/18 17:11 Tylenol DC 650 mg Q4H PRN Administration Pain, Mild (1-3) Albuterol 2.5 mg 08/17/18 17:00 Proventil IH Q3HRT PRN Shortness Of Breath Albuterol/Ipratropium 1 ampul 08/20/18 14:00 Duoneb *Not For Prn Use* IH Q6HRT LAMAR Lipase/Protease/Amylase 1 each 08/17/18 15:55 Pancresam Elizabeth 10,500 Unit FEEDTUBE PRN PRN For Clogged Feeding Tube Arformoterol Tartrate 15 mcg 08/18/18 20:00 08/20/18 08:03 Brovana Nebu IH 15 mcg Q12HRT LAMAR Administration Budesonide 0.5 mg 08/18/18 20:00 08/20/18 08:03 Pulmicort IH 0.5 mg Q12HRT LAMAR Administration Carvedilol 6.25 mg 08/15/18 22:45 08/20/18 09:28 Coreg PO 6.25 mg BID LAMAR Administration Duloxetine HCl 60 mg 08/16/18 10:00 08/20/18 09:32 Cymbalta PO Not Given QDAY LAMAR Enoxaparin Sodium 40 mg 08/17/18 22:00 08/19/18 21:56 Lovenox SUB-Q 40 mg QDAY@2200 [facility] Administration Famotidine 20 mg 08/19/18 10:00 08/20/18 09:28 Pepcid PO 20 mg BID LAMAR Administration Fentanyl 50 mcg 08/15/18 21:55 08/17/18 13:36 Sublimaze IV 50 mcg Q10MIN PRN Administration ANALGESIA Hydralazine HCl 10 mg 08/19/18 13:59 08/19/18 15:06 Apresoline IV 10 mg Q3H PRN Administration SBP > 160, DBP > 100 Hydromorphone HCl 0.5 mg 08/15/18 22:12 Dilaudid IV Q3H PRN Pain , Severe (7-10) Hydrophilic Ointment 1 applic 08/15/18 21:55 Vaseline Lip Therapy TP Q2HR PRN Dry Lips Fentanyl Citrate 2,000 mcg in 100 mls @ 4.082 mls/hr 08/15/18 22:00 08/20/18 10:02 Fentanyl Drip Premix IV 3 mcg/kg/hr TITR LAMAR 12.247 mls/hr Administration Protocol 1 MCG/KG/HR Propofol 1,000 mg in 100 mls @ 2.449 mls/hr 08/15/18 21:15 08/20/18 10:35 Diprivan 10 Mg/Ml IV 20 mcg/kg/min TITR LAMAR 9.798 mls/hr Titration Protocol 5 MCG/KG/MIN Norepinephrine 4 mg in 250 mls @ 7.5 mls/hr 08/17/18 20:00 Levophed Drip 4 Mg/Ns 250 Ml IV TITR LAMAR Protocol 2 MCG/MIN Fluconazole 200 mls @ 100 mls/hr 08/19/18 10:00 08/20/18 11:58 Diflucan IV Infused Q24H LAMAR Infusion Protocol Dextrose 1,000 mls @ 75 mls/hr 08/19/18 10:00 08/20/18 06:58 D5w IV 75 mls/hr DIRECT LAMAR Administration Metronidazole 500 mg in 100 mls @ 100 mls/hr 08/19/18 14:00 08/20/18 07:50 Flagyl 500 Mg/100 Ml IV Infused Q8HR LAMAR Infusion Protocol Ceftriaxone Sodium 2 gm in 100 mls @ 200 mls/hr 08/20/18 10:00 08/20/18 11:58 Rocephin/Ns 2 Gm/100 Ml IV Infused Q24HR LAMAR Infusion Protocol Metoclopramide HCl 5 mg 08/15/18 22:50 Reglan IV Q6H PRN Nausea And Vomiting Ondansetron HCl 4 mg 08/15/18 22:12 Zofran IV Q8H PRN Nausea And Vomiting Simple Syrup 15 ml 08/17/18 15:55 Simple Syrup FEEDTUBE PRN PRN Hypoglycemia Simple Syrup 30 ml 08/17/18 15:55 Simple Syrup FEEDTUBE PRN PRN Hypoglycemia Sodium Bicarbonate 325 mg 08/17/18 15:55 Sodium Bicarbonate FEEDTUBE PRN PRN For Clogged Feeding Tube Sodium Chloride 10 ml 08/16/18 10:00 08/20/18 09:33 Sodium Chloride Flush Syringe 10 Ml IV 10 ml BID LAMAR Administration Sodium Chloride 10 ml 08/15/18 22:12 08/18/18 21:52 Sodium Chloride Flush Syringe 10 Ml IV 10 ml PRN PRN Administration LINE FLUSH
[2018-08-20] MEDS ORDERED: PERCOCET 5/325 FEEDTUBE ONE (14:42)
--- NOTE | 2018-08-20 18:05 | Progress Note ---
Assessment and Plan Cultures: 08/15/2018 blood culture: One set positive for yeast 08/15/2018 sputum culture: Escherichia coli, MSSA 08/18/2018 blood culture: no growth today 08/18/2018 urine culture: neg C.diff negative HIV Negative A/P: 68-year-old female with COPD, arthritis, history of multiple spinal surgeries was brought to the emergency room on 08/15/2018 with altered mental status: 1) Sepsis: Likely secondary to fungemia. 2) Fungemia: Blood cultures done on admission growing yeast in one set (probably Camryn but could be other yeast). Etiology is unclear. Patient without any history of indwelling PICC line, TPN or immunocompromised status. reporting severe explosive diarrhea, N/V before admisison after taken 4 days of amoxicillin for dental implant. -s/p fluconazole 800 mg loading dose -serum Crypto negative. -08/15/2018 blood culture: One set positive for yeast -08/18/2018 blood culture: no growth today -CTA chest showed limited study due to respiratory motion artifact. No evidence of pulmonary embolism. Abnormal bilateral lung consolidation which may represent pulmonary edema or pneumonia. Mild cardiomegaly. Indeterminant mediastinal lymph nodes. -CT abdomen showed extensive bilateral lower lobe pulmonary infiltrates, rectal tube and Dodge catheter noted. NG tube at gastric antrum. Left hip prosthesis Extensive degenerative changes noted lumbar spine -TTE EF 25-30% no vegetations - HIV negative - C.diff negative 3) Acute renal failure: On admission: Creatinine improved. Nephrology following. 4) Transaminitis: Likely from shock liver. Monitor. 5) Bilateral pneumonia: DDx aspiration pneumonia v/s CAP. Causing acute respiratory failure. Chest x-ray shows reticular nodular infiltrates, some of these appear to be chronic and would also present in 2011. CTA chest showed limited study due to respiratory motion artifact. No evidence of pulmonary embolism. Abnormal bilateral lung consolidation which may represent pulmonary edema or pneumonia. Mild cardiomegaly. Indeterminant mediastinal lymph nodes. 6) Right maxillary sinusitis 7) Acute encephalopathy: Likely multifactorial. CT head unremarkable for acute intracranial process. currently sedated. 8) Recent diarrhea after antibiotics ? C diff Recs: Given persistent fever, will switch fluconazole to micafungin continue ceftriaxone and flagyl IV f/u Repeat blood cultures f/u blood culture ID and sensitivity Of note, the RIJ central line will need removal at some point since it was placed during active fungemia Brando Pradhan MD [facility] C: [phone] O: [phone] F: [phone] Subjective Date of service: 08/20/18 Principal diagnosis: Acute hypoxemic hypercapnic Resp failure; AE-COPD; Acute kidney injury Interval history: febrile. intubated, unable to provide history. Objective - Exam Narrative Exam: Physical Exam: Constitutional: sedated, intubated Head, Ears, Nose: Normocephalic, atraumatic. External ears, nose normal Eyes: Conjunctivae/corneas clear. No icterus. No ptosis. Neck: Supple, no meningeal signs Oral: intubated Cardiovascular: S1, S2 normal. Respiratory: Good air entry, clear to auscultation bilaterally GI: Soft, non-tender; bowel sounds normal. No peritoneal signs Musculoskeletal: No pedal edema, no cyanosis. Skin: No rash or abscess Hem/Lymphatic: No palpable cervical or supraclavicular nodes. No lymphangitis Psych: no agitation Neurological: sedated, intubated, on vent - Constitutional Vitals: Vital Signs Temp Pulse Resp BP Pulse Ox 101.9 F H 80 31 H 120/72 93 08/20/18 16:00 08/20/18 17:43 08/20/18 17:00 08/20/18 17:43 08/20/18 17:43 Temperature -Last 24 Hours Temperature 101.9 F Temperature 102.3 F Temperature 100.3 F Temperature 99.8 F Temperature 99.6 F - Labs CBC & Chem 7: 08/16/18 05:38 08/20/18 05:25 Labs: Abnormal lab results 08/20/18 08/20/18 Range/Units 03:51 05:25 POC ABG pCO2 33.4 L (35-45) POC ABG pO2 74 L (80-105) Sodium 146 H D (137-145) mmol/L Chloride 111.2 H (98-107) mmol/L BUN 24 H (7-17) mg/dL Glucose 141 H (65-100) mg/dL Calcium 8.1 L (8.4-10.2) mg/dL AST 65 H (5-40) units/L ALT 104 H (7-56) units/L Total Protein 6.2 L (6.3-8.2) g/dL Albumin 2.6 L (3.9-5) g/dL
[2018-08-20] MEDS: MYCAMINE 100 MG in NACL 0.9% 100 ML IV SCH (21:16)
[2018-08-20] MEDS: LOVENOX SUB-Q SCH (21:16)
[2018-08-20] MEDS: LEVOPHED DRIP 4 MG/NS 250 ML 4 MG/250 ML BAG IV SCH (22:09)
[2018-08-21] MEDS: DUONEB *Not for PRN Use IH SCH ×4 (02:30→19:38)
[2018-08-21] MEDS: TYLENOL PO PRN (03:53)
[2018-08-21] MEDS: fentaNYL DRIP Premix 2,000 MCG/100 ML BAG IV SCH ×4 (05:00→23:26)
[2018-08-21] MEDS: FLAGYL 500 MG/100 ML 500 MG/100 ML BAG IV SCH ×3 (05:43→23:27)
[2018-08-21 06:21] LABS: Hematocrit 26.7 % (30.3-42.9); Hemoglobin 8.8 gm/dl (10.1-14.3); Mean Corpuscular HGB Conc 33 % (30-34); Mean Corpuscular Volume 94 fl (79-97); Platelet Count 127 K/mm3 (140-440); Red Blood Count 2.83 M/mm3 (3.65-5.03); Red Cell Distribution Width 15.7 % (13.2-15.2)
[2018-08-21 06:40] LABS: Albumin 2.1 g/dL (3.9-5); Calcium 7.6 mg/dL (8.4-10.2)
[2018-08-21 07:14] LABS: Band Neutrophils # (Manual) 0.2 K/mm3; Basophils % (Manual) 0 % (0.0-1.8); Monocytes % (Manual) 0 % (0.0-7.3); Total Cells Counted 100
[2018-08-21 07:15] LABS: Giant Platelets Few; Hypochromasia Few; Target Cells 1+
[2018-08-21 07:16] LABS: Platelet Estimate Consistent w Auto; Spherocytes Few
[2018-08-21] MEDS: PULMICORT IH SCH ×2 (09:07→19:38)
[2018-08-21] MEDS: BROVANA NEBU IH SCH ×2 (09:07→19:38)
[2018-08-21] MEDS: PEPCID PO SCH (09:30)
[2018-08-21] MEDS: COREG PO SCH ×2 (09:30→23:25)
[2018-08-21] MEDS: ROCEPHIN/NS 2 GM/100 ML 2 GM/100 ML BAG IV SCH (09:31)
[2018-08-21] MEDS: CYMBALTA PO SCH (09:33)
[2018-08-21] MEDS: MYCAMINE 100 MG in NACL 0.9% 100 ML IV SCH (09:34)
[2018-08-21] MEDS: SODIUM CHLORIDE FLUSH SYRINGE 10 ML IV SCH ×2 (10:00→23:29)
[2018-08-21] MEDS: DIPRIVAN 10 MG/ML 1,000 MG/100 ML BOTTLE IV SCH (11:01)
--- NOTE | 2018-08-21 12:12 | Progress Note ---
Assessment and Plan Assessment and plan: --Acute hypoxic hypercapnic respiratory failure; requiring mechanical ventilation Continue ventilatory support, nebulizers, IV antibiotics, supportive care wean as tolerated and extubate, pulmonary following --Aspiration pneumonia; continue Rocephin and Flagyl Patient is also on Diflucan, ID following Follow-up chest x-ray; partial improvement of pneumonia --Sepsis; secondary to aspiration pneumonia, continue current antibiotics Follow cultures, ID following --Hypernatremia; free water flushes, improved Closely monitor electrolytes, trending down --Hypokalemia; replace with KCl, follow electrolytes --Severe malnutrition/hypoalbuminemia; Nutrition consults and supportive care --Acute kidney injury; probably secondary to ATN avoid nephrotoxins, Nephrology following ----Acute systolic congestive heart failure; Ejection fraction 25-30%, continue current management Cardiology following --Elevated Transaminases; possible congested liver Levels trending down, check acute hepatitis panel Consider GI evaluation if needed --DVT prophylaxis; Lovenox Consults and recommendations noted and appreciated Plan of care reviewed with the patient's nurse Patient is critically ill with poor prognosis The high probability of a clinically significant, sudden or life threatening deterioration of the [respiratory, cardiology, ID, renal and metabolic] system(s) required my full and direct attention, intervention and personal management. The aggregate critical care time was [32] minutes. This time is in addition to time spent performing reported procedures but includes the following: [x] Data Review and interpretation [x] Patient assessment and monitoring of vital signs [x] Documentation [x] Medication orders and management History Interval history: Patient seen and examined this morning medical records reviewed Patient's is at the bedside Remains intubated on ventilatory support, not in acute distress No new events reported by the nursing Vital signs noted Hospitalist Physical - Constitutional Vitals: Temp Pulse Resp BP Pulse Ox 100.3 F H 84 30 H 117/58 93 08/21/18 08:00 08/21/18 11:30 08/21/18 11:30 08/21/18 11:30 08/21/18 11:30 General appearance: Present: no acute distress, well-nourished, other (intubated on ventilatory support, sedated) - EENT Eyes: Present: PERRL, EOM intact - Neck Neck: Present: supple, normal ROM - Respiratory Respiratory effort: normal Respiratory: bilateral: diminished, rhonchi, negative: rales, wheezing - Cardiovascular Rhythm: regular Heart Sounds: Present: S1 & S2 - Extremities Extremities: no ischemia, No edema - Abdominal General gastrointestinal: soft, non-tender, non-distended, normal bowel sounds - Integumentary Integumentary: Present: clear, warm - Psychiatric Psychiatric: other (intubated on vent) - Neurologic Neurologic: other (intubated on vent) Results - Labs CBC & Chem 7: 08/21/18 05:45 08/21/18 05:45 Labs: Laboratory Last Values WBC 24.1 K/mm3 (4.5-11.0) H 08/21/18 05:45 RBC 2.83 M/mm3 (3.65-5.03) L 08/21/18 05:45 Hgb 8.8 gm/dl (10.1-14.3) L 08/21/18 05:45 Hct 26.7 % (30.3-42.9) L 08/21/18 05:45 MCV 94 fl (79-97) 08/21/18 05:45 MCH 31 pg (28-32) 08/21/18 05:45 MCHC 33 % (30-34) 08/21/18 05:45 RDW 15.7 % (13.2-15.2) H 08/21/18 05:45 Plt Count 127 K/mm3 (140-440) L 08/21/18 05:45 Add Manual Diff Complete 08/21/18 05:45 Total Counted 100 08/21/18 05:45 Seg Neuts % (Manual) 94.0 % (40.0-70.0) H 08/21/18 05:45 Band Neutrophils % 1.0 % 08/21/18 05:45 Lymphocytes % (Manual) 4.0 % (13.4-35.0) L 08/21/18 05:45 Reactive Lymphs % (Man) 0 % 08/21/18 05:45 Monocytes % (Manual) 0 % (0.0-7.3) 08/21/18 05:45 Eosinophils % (Manual) 1.0 % (0.0-4.3) 08/21/18 05:45 Basophils % (Manual) 0 % (0.0-1.8) 08/21/18 05:45 Metamyelocytes % 0 % 08/21/18 05:45 Myelocytes % 0 % 08/21/18 05:45 Promyelocytes % 0 % 08/21/18 05:45 Blast Cells % 0 % 08/21/18 05:45 Nucleated RBC % 1.0 % (0.0-0.9) H 08/21/18 05:45 Seg Neutrophils # Man 22.7 K/mm3 (1.8-7.7) H 08/21/18 05:45 Band Neutrophils # 0.2 K/mm3 08/21/18 05:45 Lymphocytes # (Manual) 1.0 K/mm3 (1.2-5.4) L 08/21/18 05:45 Abs React Lymphs (Man) 0.0 K/mm3 08/21/18 05:45 Monocytes # (Manual) 0.0 K/mm3 (0.0-0.8) 08/21/18 05:45 Eosinophils # (Manual) 0.2 K/mm3 (0.0-0.4) 08/21/18 05:45 Basophils # (Manual) 0.0 K/mm3 (0.0-0.1) 08/21/18 05:45 Metamyelocytes # 0.0 K/mm3 08/21/18 05:45 Myelocytes # 0.0 K/mm3 08/21/18 05:45 Promyelocytes # 0.0 K/mm3 08/21/18 05:45 Blast Cells # 0.0 K/mm3 08/21/18 05:45 WBC Morphology Not Reportable 08/21/18 05:45 Hypersegmented Neuts Not Reportable 08/21/18 05:45 Hyposegmented Neuts Not Reportable 08/21/18 05:45 Hypogranular Neuts Not Reportable 08/21/18 05:45 Smudge Cells Not Reportable 08/21/18 05:45 Toxic Granulation Not Reportable 08/21/18 05:45 Toxic Vacuolation Not Reportable 08/21/18 05:45 Dohle Bodies Not Reportable 08/21/18 05:45 Pelger-Huet Anomaly Not Reportable 08/21/18 05:45 Rosy Rods Not Reportable 08/21/18 05:45 Platelet Estimate Consistent w auto 08/21/18 05:45 Clumped Platelets Not Reportable 08/21/18 05:45 Plt Clumps, EDTA Not Reportable 08/21/18 05:45 Large Platelets Not Reportable 08/21/18 05:45 Giant Platelets Few 08/21/18 05:45 Platelet Satelliting Not Reportable 08/21/18 05:45 Plt Morphology Comment Not Reportable 08/21/18 05:45 RBC Morphology Not Reportable 08/21/18 05:45 Dimorphic RBCs Not Reportable 08/21/18 05:45 Polychromasia Not Reportable 08/21/18 05:45 Hypochromasia Few 08/21/18 05:45 Poikilocytosis Not Reportable 08/21/18 05:45 Anisocytosis Not Reportable 08/21/18 05:45 Microcytosis Not Reportable 08/21/18 05:45 Macrocytosis Not Reportable 08/21/18 05:45 Spherocytes Few 08/21/18 05:45 Pappenheimer Bodies Not Reportable 08/21/18 05:45 Sickle Cells Not Reportable 08/21/18 05:45 Target Cells 1+ 08/21/18 05:45 Tear Drop Cells Not Reportable 08/21/18 05:45 Ovalocytes Not Reportable 08/21/18 05:45 Helmet Cells Not Reportable 08/21/18 05:45 [place] Bodies Not Reportable 08/21/18 05:45 [place] Rings Not Reportable 08/21/18 05:45 Amberson Cells Not Reportable 08/21/18 05:45 Bite Cells Not Reportable 08/21/18 05:45 Crenated Cell Not Reportable 08/21/18 05:45 Elliptocytes Not Reportable 08/21/18 05:45 Acanthocytes (Spur) Not Reportable 08/21/18 05:45 Rouleaux Not Reportable 08/21/18 05:45 Hemoglobin C Crystals Not Reportable 08/21/18 05:45 Schistocytes Not Reportable 08/21/18 05:45 Malaria parasites Not Reportable 08/21/18 05:45 Ceasar Bodies Not Reportable 08/21/18 05:45 Hem Pathologist Commnt No 08/21/18 05:45 D-Dimer 2768.33 ng/mlDDU (0-234) H 08/15/18 18:31 POC ABG pH 7.396 (7.35-7.45) 08/21/18 03:54 POC ABG pCO2 31.9 (35-45) L 08/21/18 03:54 POC ABG pO2 66 (80-105) L 08/21/18 03:54 POC ABG HCO3 19.6 (22-26 mml/L) 08/21/18 03:54 POC ABG Total CO2 21 (23-27mmol/L) 08/21/18 03:54 POC ABG O2 Sat 93 08/21/18 03:54 POC ABG Base Excess -5 ((-2) - (+3)mmol/L) 08/21/18 03:54 VBG pH 7.187 (7.320-7.420) L* 08/15/18 18:19 FiO2 50 % 08/21/18 03:54 Sodium 143 mmol/L (137-145) 08/21/18 05:45 Potassium 3.5 mmol/L (3.6-5.0) L 08/21/18 05:45 Chloride 109.4 mmol/L (98-107) H 08/21/18 05:45 Carbon Dioxide 21 mmol/L (22-30) L 08/21/18 05:45 Anion Gap 16 mmol/L 08/21/18 05:45 BUN 50 mg/dL (7-17) H 08/21/18 05:45 Creatinine 2.0 mg/dL (0.7-1.2) H D 08/21/18 05:45 Estimated GFR 25 ml/min 08/21/18 05:45 BUN/Creatinine Ratio 25 % 08/21/18 05:45 Glucose 144 mg/dL (65-100) H 08/21/18 05:45 Hemoglobin A1c 6.4 % (4-6) H 08/15/18 23:09 Lactic Acid 1.70 mmol/L (0.7-2.0) 08/16/18 05:38 Calcium 7.6 mg/dL (8.4-10.2) L 08/21/18 05:45 Phosphorus 3.50 mg/dL (2.5-4.5) D 08/20/18 05:25 Magnesium 2.10 mg/dL (1.7-2.3) 08/21/18 05:45 Total Bilirubin 0.20 mg/dL (0.1-1.2) 08/21/18 05:45 AST 28 units/L (5-40) 08/21/18 05:45 ALT 53 units/L (7-56) 08/21/18 05:45 Alkaline Phosphatase 76 units/L (35-129) 08/21/18 05:45 Troponin T 0.317 ng/mL (0.00-0.029) H* D 08/18/18 13:39 C-Reactive Protein 10.70 mg/dL (0.00-1.30) H 08/18/18 13:39 Total Protein 5.3 g/dL (6.3-8.2) L 08/21/18 05:45 Albumin 2.1 g/dL (3.9-5) L 08/21/18 05:45 Albumin/Globulin Ratio 0.7 % 08/21/18 05:45 Triglycerides 356 mg/dL (2-149) H 08/15/18 18:31 Cholesterol 87 mg/dL (50-199) 08/15/18 18:31 LDL Cholesterol Direct 4 mg/dL (50-130) L 08/15/18 18:31 HDL Cholesterol 10 mg/dL (40-59) L 08/15/18 18:31 Cholesterol/HDL Ratio 8.70 % 08/15/18 18:31 Urine Color Rosemarie (Yellow) 08/15/18 19:15 Urine Turbidity Cloudy (Clear) 08/15/18 19:15 Urine pH 5.0 (5.0-7.0) 08/15/18 19:15 Ur Specific [place] 1.025 (1.003-1.030) 08/15/18 19:15 Urine Protein 30 mg/dl mg/dL (Negative) 08/15/18 19:15 Urine Glucose (UA) Neg mg/dL (Negative) 08/15/18 19:15 Urine Ketones Neg mg/dL (Negative) 08/15/18 19:15 Urine Blood Mod (Negative) 08/15/18 19:15 Urine Nitrite Neg (Negative) 08/15/18 19:15 Urine Bilirubin Neg (Negative) 08/15/18 19:15 Urine Urobilinogen 2.0 mg/dL (<2.0) 08/15/18 19:15 Ur Leukocyte Esterase Mod (Negative) 08/15/18 19:15 Urine WBC (Auto) 17.0 /HPF (0.0-6.0) H 08/15/18 19:15 Urine RBC (Auto) 5.0 /HPF (0.0-6.0) 08/15/18 19:15 Urine WBC Clumps 2+ /HPF 08/15/18 19:15 Amorphous Crystals 1+ 08/15/18 19:15 Hyaline Casts 54 /LPF 08/15/18 19:15 Granular Casts 14 /LPF 08/15/18 19:15 Urine Mucus Few /HPF 08/15/18 19:15 Salicylates < 0.3 mg/dL (2.8-20.0) L 08/15/18 19:14 Urine Opiates Screen Presumptive positive 08/15/18 19:15 Urine Methadone Screen Presumptive negative 08/15/18 19:15 Acetaminophen < 5.0 ug/mL (10.0-30.0) L 08/15/18 19:14 Ur Barbiturates Screen Presumptive negative 08/15/18 19:15 Ur Phencyclidine Scrn Presumptive negative 08/15/18 19:15 Ur Amphetamines Screen Presumptive negative 08/15/18 19:15 U Benzodiazepines Scrn Presumptive negative 08/15/18 19:15 Urine Cocaine Screen Presumptive negative 08/15/18 19:15 U Marijuana (THC) Screen Presumptive negative 08/15/18 19:15 Drugs of Abuse Note Disclamer 08/15/18 19:15 C. difficile Toxin A&B Negative (Negative) 08/19/18 14:00 HIV 1&2 Antibody Rapid Non react (Non React) 08/18/18 13:39 HIV P24 Antigen Non react (Non React) 08/18/18 13:39 Active Medications - Current Medications Current Medications: Generic Name Dose Route Start Last Admin Trade Name Freq PRN Reason Stop Dose Admin Acetaminophen 650 mg 08/15/18 22:12 08/21/18 03:53 Tylenol PO 650 mg Q4H PRN Administration Pain MILD(1-3)/Fever >100.5/MONDRAGON Acetaminophen 650 mg 08/16/18 17:01 08/16/18 17:11 Tylenol CA 650 mg Q4H PRN Administration Pain, Mild (1-3) Albuterol 2.5 mg 08/17/18 17:00 Proventil IH Q3HRT PRN Shortness Of Breath Albuterol/Ipratropium 1 ampul 08/20/18 14:00 08/21/18 09:07 Duoneb *Not For Prn Use* IH Not Given Q6HRT [facility] Lipase/Protease/Amylase 1 each 08/17/18 15:55 Pancresam Elizabeth 10,500 Unit FEEDTUBE PRN PRN For Clogged Feeding Tube Arformoterol Tartrate 15 mcg 08/18/18 20:00 08/21/18 09:07 Brovana Nebu IH 15 mcg Q12HRT LAMAR Administration Budesonide 0.5 mg 08/18/18 20:00 08/21/18 09:07 Pulmicort IH 0.5 mg Q12HRT LAMAR Administration Carvedilol 6.25 mg 08/15/18 22:45 08/21/18 09:30 Coreg PO 6.25 mg BID LAMAR Administration Duloxetine HCl 60 mg 08/16/18 10:00 08/21/18 09:33 Cymbalta PO Not Given QDAY [facility] Enoxaparin Sodium 30 mg 08/21/18 22:00 Lovenox SUB-Q QDAY@2200 [facility] Famotidine 20 mg 08/21/18 10:00 08/21/18 09:30 Pepcid PO 20 mg DAILY [facility] Administration Fentanyl 50 mcg 08/15/18 21:55 08/17/18 13:36 Sublimaze IV 50 mcg Q10MIN PRN Administration ANALGESIA Hydralazine HCl 10 mg 08/19/18 13:59 08/19/18 15:06 Apresoline IV 10 mg Q3H PRN Administration SBP > 160, DBP > 100 Hydromorphone HCl 0.5 mg 08/15/18 22:12 Dilaudid IV Q3H PRN Pain , Severe (7-10) Hydrophilic Ointment 1 applic 08/15/18 21:55 Vaseline Lip Therapy TP Q2HR PRN Dry Lips Fentanyl Citrate 2,000 mcg in 100 mls @ 4.082 mls/hr 08/15/18 22:00 08/21/18 11:00 Fentanyl Drip Premix IV 4 mcg/kg/hr TITR LAMAR 16.329 mls/hr Administration Protocol 1 MCG/KG/HR Propofol 1,000 mg in 100 mls @ 2.449 mls/hr 08/15/18 21:15 08/21/18 11:01 Diprivan 10 Mg/Ml IV 10 mcg/kg/min TITR LAMAR 4.899 mls/hr Administration Protocol 5 MCG/KG/MIN Norepinephrine 4 mg in 250 mls @ 7.5 mls/hr 08/17/18 20:00 08/21/18 05:05 Levophed Drip 4 Mg/Ns 250 Ml IV 0 mcg/min TITR LAMAR 0 mls/hr Titration Protocol 2 MCG/MIN Metronidazole 500 mg in 100 mls @ 100 mls/hr 08/19/18 14:00 08/21/18 07:00 Flagyl 500 Mg/100 Ml IV Infused Q8HR [facility] Infusion Protocol Ceftriaxone Sodium 2 gm in 100 mls @ 200 mls/hr 08/20/18 10:00 08/21/18 11:07 Rocephin/Ns 2 Gm/100 Ml IV Infused Q24HR [facility] Infusion Protocol Micafungin Sodium 100 mg/ 100 mls @ 100 mls/hr 08/20/18 18:00 08/21/18 11:06 Sodium Chloride IV Infused QDAY [facility] Infusion Protocol Metoclopramide HCl 5 mg 08/15/18 22:50 Reglan IV Q6H PRN Nausea And Vomiting Ondansetron HCl 4 mg 08/15/18 22:12 Zofran IV Q8H PRN Nausea And Vomiting Quetiapine Fumarate 100 mg 08/20/18 22:00 08/20/18 21:16 Seroquel PO 100 mg QHS LAM[facility] Administration Simple Syrup 15 ml 08/17/18 15:55 Simple Syrup FEEDTUBE PRN PRN Hypoglycemia Simple Syrup 30 ml 08/17/18 15:55 Simple Syrup FEEDTUBE PRN PRN Hypoglycemia Sodium Bicarbonate 325 mg 08/17/18 15:55 Sodium Bicarbonate FEEDTUBE PRN PRN For Clogged Feeding Tube Sodium Chloride 10 ml 08/16/18 10:00 08/21/18 10:00 Sodium Chloride Flush Syringe 10 Ml IV 10 ml BID LAMAR Administration Sodium Chloride 10 ml 08/15/18 22:12 08/18/18 21:52 Sodium Chloride Flush Syringe 10 Ml IV 10 ml PRN PRN Administration LINE FLUSH Nutrition/Malnutrition Assess - Dietary Evaluation Nutrition/Malnutrition Findings: Nutrition Notes Start: 08/17/18 13:57 Freq: Status: Active Protocol: Document 08/19/18 12:05 RD (Rec: 08/19/18 13:19 RD [email or web address]) Co-Sign 08/19/18 12:05 OL Nutrition Notes Initial or Follow up Reassessment Current Diagnosis Acute Kidney Injury,COPD, Diabetes,Sepsis,Hypertension, Respiratory Failure, Hyperlipidemia Other Pertinent Diagnosis AMS, hypokalemia, NSTEMI, encephalopathy, pneu, hypernatermia, shock liver Current Diet Vital AF 1.2 at 60mL/hr Labs/Tests Na 154 K 3.3 Cl 115 BUN 19 Pertinent Medications Propofol Height 5 ft 7 in Weight 84.6 kg [place] Body Weight (kg) 61.36 BMI 29.2 Subjective/Other Information Per RN, pt tolerating TF well. TF running at goal rate. #1 Nutrition Diagnosis Inadequate oral intake Diagnosis Progress(for reassessment Continues documentation) Is patient on ventilator? Yes Is Patient Ambulatory and/or Out of Bed No [facility] [phone] Calculation Used for Recommendations [facility] Additional Notes Protein needs: (1.2-2g/kg) 97- 162g/day Fluid needs: 1ml/kcal Nutrition Intervention Change Diet Order: TF Nutrition Support: Vital AF 1.2 at 60mL/hr with 150mL flush q4h. Kcal 1,728 Protein (gm) 108 Fluid (mL) 1,168 Goal #1 Tolerate TF Goal #2 Meet at least 75% of nutrient needs via TF Anticipated Discharge Needs: Unable to determine at this time Follow-Up By: 08/24/18 Additional Comments f/u: stable TF, Na labs
--- NOTE | 2018-08-21 12:20 | XRay Report ---
PROCEDURE: XR CHEST 1V AP TECHNIQUE: Chest radiograph single view. HISTORY: respiratory failure, aspiration PNA COMPARISONS: 08/17/2018 . FINDINGS: Heart: Normal. Mediastinum/Vessels: Normal. Lungs/Pleural space: Evaluation of the lungs is limited due to suboptimal expansion and patient rota tion. Subsegmental atelectatic changes are noted in bilateral lung bases.. There appears to be interv al partial improvement in right lower lung consolidation changes. Bony thorax: No acute osseous abnormality. Life support devices: Endotracheal tube is terminating about 1 cm above the amando. A nasogastric tub e is extending down into the abdomen and its tip is not included in this study. A right jugular centr al line is terminating at the level of cavoatrial junction.. IMPRESSION: Limited study There appears to be partial interval improvement in the right lower lung consolidation.. This document is electronically signed by Tobin Cardenas MD., August 21 2018 12:19:06 PM ET
--- NOTE | 2018-08-21 12:39 | Progress Note ---
Assessment and Plan 1. Acute kidney injury: Recurrent CHANDANA. Recent increase in the creatinine is likely due to sepsis / hypotension. Monitor renal function. Renal prognosis is guarded. Avoid nephrotoxic agents. Meds dosage based on GFR. 2. FEN: Hypokalemia, replete K. Hypernatremia, improved. Metabolic acidosis, monitor. 3. Acute encephalopathy. 4. Respiratory failure: On vent. 5. Pneumonia. 6. Fungemia. D/w her at the bedside. Subjective Date of service: 08/21/18 Principal diagnosis: Acute hypoxemic hypercapnic Resp failure; AE-COPD; Acute kidney injury Interval history: Patient was seen and examined at the bedside. Objective - Vital Signs Vital signs: Vital Signs - 12hr 08/21/18 08/21/18 08/21/18 01:00 01:30 02:00 Temperature Pulse Rate 80 78 86 Pulse Rate [ Anterior Bilateral Throughout] Pulse Rate [ Right Dorsalis Pedis] Respiratory 29 H 29 H 28 H Rate Respiratory Rate [Anterior Bilateral Throughout] Blood Pressure 99/56 101/56 102/54 O2 Sat by Pulse 90 93 93 Oximetry 08/21/18 08/21/18 08/21/18 02:30 03:01 03:30 Temperature Pulse Rate 76 78 79 Pulse Rate [ Anterior Bilateral Throughout] Pulse Rate [ Right Dorsalis Pedis] Respiratory 29 H 29 H 30 H Rate Respiratory Rate [Anterior Bilateral Throughout] Blood Pressure 91/58 107/53 122/68 O2 Sat by Pulse 92 92 90 Oximetry 08/21/18 08/21/18 08/21/18 04:00 04:30 05:00 Temperature 100.9 F H Pulse Rate 81 80 84 Pulse Rate [ Anterior Bilateral Throughout] Pulse Rate [ 81 Right Dorsalis Pedis] Respiratory 29 H 28 H 37 H Rate Respiratory Rate [Anterior Bilateral Throughout] Blood Pressure 144/63 115/45 129/63 O2 Sat by Pulse 93 95 94 Oximetry 08/21/18 08/21/18 08/21/18 05:30 05:58 06:00 Temperature Pulse Rate 81 80 Pulse Rate [ Anterior Bilateral Throughout] Pulse Rate [ 78 Right Dorsalis Pedis] Respiratory 28 H 27 H 28 H Rate Respiratory Rate [Anterior Bilateral Throughout] Blood Pressure 104/55 105/55 O2 Sat by Pulse 91 94 92 Oximetry 08/21/18 08/21/18 08/21/18 06:30 07:00 07:30 Temperature Pulse Rate 79 82 77 Pulse Rate [ Anterior Bilateral Throughout] Pulse Rate [ Right Dorsalis Pedis] Respiratory 27 H 26 H 27 H Rate Respiratory Rate [Anterior Bilateral Throughout] Blood Pressure 124/52 99/50 108/51 O2 Sat by Pulse 93 93 93 Oximetry 08/21/18 08/21/18 08/21/18 08:00 08:30 09:00 Temperature 100.3 F H Pulse Rate 75 74 79 Pulse Rate [ Anterior Bilateral Throughout] Pulse Rate [ 85 Right Dorsalis Pedis] Respiratory 26 H 25 H 28 H Rate Respiratory Rate [Anterior Bilateral Throughout] Blood Pressure 111/51 117/55 116/53 O2 Sat by Pulse 94 94 91 Oximetry 08/21/18 08/21/18 08/21/18 09:05 09:08 09:30 Temperature Pulse Rate 79 81 Pulse Rate [ 91 H Anterior Bilateral Throughout] Pulse Rate [ Right Dorsalis Pedis] Respiratory 27 H Rate Respiratory 26 H Rate [Anterior Bilateral Throughout] Blood Pressure 116/53 113/56 O2 Sat by Pulse 95 91 Oximetry 08/21/18 08/21/18 08/21/18 10:00 10:30 10:54 Temperature Pulse Rate 89 82 76 Pulse Rate [ Anterior Bilateral Throughout] Pulse Rate [ Right Dorsalis Pedis] Respiratory 33 H 29 H Rate Respiratory Rate [Anterior Bilateral Throughout] Blood Pressure 128/62 101/59 102/53 O2 Sat by Pulse 93 94 97 Oximetry 08/21/18 08/21/18 11:00 11:30 Temperature Pulse Rate 78 84 Pulse Rate [ Anterior Bilateral Throughout] Pulse Rate [ Right Dorsalis Pedis] Respiratory 32 H 30 H Rate Respiratory Rate [Anterior Bilateral Throughout] Blood Pressure 111/57 117/58 O2 Sat by Pulse 95 93 Oximetry - General Appearance General appearance: well-developed, well-nourished, appears stated age, sedated on ventilator, intubated EENT: ATNC, other (pupils small) Neck: supple Respiratory: Present: Other (coarse breath sounds) Cardiology: regular, S1S2, no murmurs Gastrointestinal: normoactive bowel sounds, no tenderness, no distended Integumentary: no rash Neurologic: other (sedated) Musculoskeletal: other (no edema) - Lab 08/21/18 05:45 08/21/18 05:45 Most recent lab results Calcium 7.6 mg/dL (8.4-10.2) L 03/24/19 05:45 Phosphorus 3.50 mg/dL (2.5-4.5) D 08/20/18 05:25 Magnesium 2.10 mg/dL (1.7-2.3) 08/21/18 05:45 Medications & Allergies - Medications Allergies/Adverse Reactions: Allergies No Known Allergies Allergy (Unverified 08/15/18 16:49) Home Medications: Home Medications Medication Instructions Recorded Confirmed Last Taken Type Carvedilol 6.25 mg PO BID 08/15/18 08/15/18 Unknown History DULoxetine 60 mg PO QDAY 08/15/18 08/15/18 Unknown History Gabapentin 600 mg PO Q6HR PRN 08/15/18 08/15/18 Unknown History Methylphenidate 5 mg PO TID 08/15/18 08/15/18 Unknown History Morphabond ER 60 mg PO Q12HR 08/15/18 08/15/18 Unknown History Pravastatin Sodium 10 mg PO QDAY 08/15/18 08/15/18 Unknown History Tizanidine HCl 4 mg PO Q12HR 08/15/18 08/15/18 Unknown History oxyCODONE /ACETAMINOPHEN 7.5 - 325 mg PO Q8HR 08/15/18 08/15/18 Unknown History Active Medications: Generic Name Dose Route Start Last Admin Trade Name Freq PRN Reason Stop Dose Admin Acetaminophen 650 mg 08/15/18 22:12 08/21/18 03:53 Tylenol PO 650 mg Q4H PRN Administration Pain MILD(1-3)/Fever >100.5/MONDRAGON Acetaminophen 650 mg 08/16/18 17:01 08/16/18 17:11 Tylenol DE 650 mg Q4H PRN Administration Pain, Mild (1-3) Albuterol 2.5 mg 08/17/18 17:00 Proventil IH Q3HRT PRN Shortness Of Breath Albuterol/Ipratropium 1 ampul 08/20/18 14:00 08/21/18 09:07 Duoneb *Not For Prn Use* IH Not Given Q6HRT LAMAR Lipase/Protease/Amylase 1 each 08/17/18 15:55 Pancreazrashad Elizabeth 10,500 Unit FEEDTUBE PRN PRN For Clogged Feeding Tube Arformoterol Tartrate 15 mcg 08/18/18 20:00 08/21/18 09:07 Brovana Nebu IH 15 mcg Q12HRT LAMAR Administration Budesonide 0.5 mg 08/18/18 20:00 08/21/18 09:07 Pulmicort IH 0.5 mg Q12HRT LAMAR Administration Carvedilol 6.25 mg 08/15/18 22:45 08/21/18 09:30 Coreg PO 6.25 mg BID LAMAR Administration Duloxetine HCl 60 mg 08/16/18 10:00 08/21/18 09:33 Cymbalta PO Not Given QDAY LAMAR Enoxaparin Sodium 30 mg 08/21/18 22:00 Lovenox SUB-Q QDAY@2200 LAMAR Famotidine 20 mg 08/21/18 10:00 08/21/18 09:30 Pepcid PO 20 mg [facility]ILY [facility] Administration Fentanyl 50 mcg 08/15/18 21:55 08/17/18 13:36 Sublimaze IV 50 mcg Q10MIN PRN Administration ANALGESIA Hydralazine HCl 10 mg 08/19/18 13:59 08/19/18 15:06 Apresoline IV 10 mg Q3H PRN Administration SBP > 160, DBP > 100 Hydromorphone HCl 0.5 mg 08/15/18 22:12 Dilaudid IV Q3H PRN Pain , Severe (7-10) Hydrophilic Ointment 1 applic 08/15/18 21:55 Vaseline Lip Therapy TP Q2HR PRN Dry Lips Fentanyl Citrate 2,000 mcg in 100 mls @ 4.082 mls/hr 08/15/18 22:00 08/21/18 11:00 Fentanyl Drip Premix IV 4 mcg/kg/hr TITR LAMAR 16.329 mls/hr Administration Protocol 1 MCG/KG/HR Propofol 1,000 mg in 100 mls @ 2.449 mls/hr 08/15/18 21:15 08/21/18 11:01 Diprivan 10 Mg/Ml IV 10 mcg/kg/min TITR LAMAR 4.899 mls/hr Administration Protocol 5 MCG/KG/MIN Norepinephrine 4 mg in 250 mls @ 7.5 mls/hr 08/17/18 20:00 08/21/18 05:05 Levophed Drip 4 Mg/Ns 250 Ml IV 0 mcg/min TITR LAMAR 0 mls/hr Titration Protocol 2 MCG/MIN Metronidazole 500 mg in 100 mls @ 100 mls/hr 08/19/18 14:00 08/21/18 07:00 Flagyl 500 Mg/100 Ml IV Infused Q8HR LAMAR Infusion Protocol Ceftriaxone Sodium 2 gm in 100 mls @ 200 mls/hr 08/20/18 10:00 08/21/18 11:07 Rocephin/Ns 2 Gm/100 Ml IV Infused Q24HR LAMAR Infusion Protocol Micafungin Sodium 100 mg/ 100 mls @ 100 mls/hr 08/20/18 18:00 08/21/18 11:06 Sodium Chloride IV Infused QDAY LAMAR Infusion Protocol Metoclopramide HCl 5 mg 08/15/18 22:50 Reglan IV Q6H PRN Nausea And Vomiting Ondansetron HCl 4 mg 08/15/18 22:12 Zofran IV Q8H PRN Nausea And Vomiting Quetiapine Fumarate 100 mg 08/20/18 22:00 08/20/18 21:16 Seroquel PO 100 mg QHS LAMAR Administration Simple Syrup 15 ml 08/17/18 15:55 Simple Syrup FEEDTUBE PRN PRN Hypoglycemia Simple Syrup 30 ml 08/17/18 15:55 Simple Syrup FEEDTUBE PRN PRN Hypoglycemia Sodium Bicarbonate 325 mg 08/17/18 15:55 Sodium Bicarbonate FEEDTUBE PRN PRN For Clogged Feeding Tube Sodium Chloride 10 ml 08/16/18 10:00 08/21/18 10:00 Sodium Chloride Flush Syringe 10 Ml IV 10 ml BID LAMAR Administration Sodium Chloride 10 ml 08/15/18 22:12 08/18/18 21:52 Sodium Chloride Flush Syringe 10 Ml IV 10 ml PRN PRN Administration LINE FLUSH
--- NOTE | 2018-08-21 12:47 | Progress Note ---
Assessment and Plan Acute hypoxic-hypercapnic respiratory failure on MVS h/o COPD Acute encephalopathy( toxic-metabolic) Hypokalemia Acute kidney injury h/o Chronic narcotic dependence Aspiration pneumonia/CAP Hypokalemia E.coli/Staph pneumonia Hypernatremia -Continue full MVS -Wean supplemental oxygen to keep O2 sats 88-90% -Lung protective strategies -Oxygen restrictive strategies -ABGs/CXR -Antibiotics to complete course -VAP bundle addressed - agitation and analgesia management -Keep euvolemic . Monitor renal indices -Daily SAT's & SBT's -Sedation target for RASS 0 to -1 -Stress ulcer prophylaxis -VTE prophylaxis -Tube feedings for nutritional support -Aspiration precautions -Accuchecks with glycemic control. Target glucose of 140-180 mg/dL -Continue bronchodilators with pulmonary hygiene per RT -Maintenance of sleep -wake cycle -Mobility as tolerated by hemodynamics -Influenza and pneumonia vaccination per protocol ..care plan discussed at length with RN/RT at the bedside Discussed with the at the bedside. Updated him and care plan discussed. PROGNOSIS :GUARDED CONDITION: CRITICAL CODE STATUS: FULL CODE The high probability of a clinically significant, sudden or life-threatening deterioration of the [respiratory, neurology, renal] system(s) required my full and direct attention, intervention and personal management. The aggregate critical care time was [35] minutes without overlap. Time includes spent on; [x] Data Review and interpretation [x] Patient assessment and monitoring of vital signs [x] Documentation [x] Medication orders and management Subjective Date of service: 08/21/18 Principal diagnosis: Acute hypoxemic hypercapnic Resp failure; AE-COPD; Acute kidney injury Interval history: Follow up: Aspiration PNA, Abnormal CXR, Hypotension, Acute renal failure, Acute encephaloapthy, Acute hypoxemic respiratory failure onMVS Seen and examined. Vitals, labs, medications, chart and imaging reviewed. 24 hours events reviewed. Agitation on going per RN. No fevers, no vomiting. remains on full mechanical ventilatory support, no vasopressors, on fentanyl and low dose propofol. Less tacyhpnic, spontaneous eye opening, moving all extremities. at the bedside On AC-PRVC 12/400/50/8 ABG 7.39/31/66/19.6 CXR persistent RLL infiltrate Objective Vital Signs - 12hr 08/21/18 08/21/18 08/21/18 01:00 01:30 02:00 Temperature Pulse Rate 80 78 86 Pulse Rate [ Anterior Bilateral Throughout] Pulse Rate [ Right Dorsalis Pedis] Respiratory 29 H 29 H 28 H Rate Respiratory Rate [Anterior Bilateral Throughout] Blood Pressure 99/56 101/56 102/54 O2 Sat by Pulse 90 93 93 Oximetry 08/21/18 08/21/18 08/21/18 02:30 03:01 03:30 Temperature Pulse Rate 76 78 79 Pulse Rate [ Anterior Bilateral Throughout] Pulse Rate [ Right Dorsalis Pedis] Respiratory 29 H 29 H 30 H Rate Respiratory Rate [Anterior Bilateral Throughout] Blood Pressure 91/58 107/53 122/68 O2 Sat by Pulse 92 92 90 Oximetry 08/21/18 08/21/18 08/21/18 04:00 04:30 05:00 Temperature 100.9 F H Pulse Rate 81 80 84 Pulse Rate [ Anterior Bilateral Throughout] Pulse Rate [ 81 Right Dorsalis Pedis] Respiratory 29 H 28 H 37 H Rate Respiratory Rate [Anterior Bilateral Throughout] Blood Pressure 144/63 115/45 129/63 O2 Sat by Pulse 93 95 94 Oximetry 08/21/18 08/21/18 08/21/18 05:30 05:58 06:00 Temperature Pulse Rate 81 80 Pulse Rate [ Anterior Bilateral Throughout] Pulse Rate [ 78 Right Dorsalis Pedis] Respiratory 28 H 27 H 28 H Rate Respiratory Rate [Anterior Bilateral Throughout] Blood Pressure 104/55 105/55 O2 Sat by Pulse 91 94 92 Oximetry 08/21/18 08/21/18 08/21/18 06:30 07:00 07:30 Temperature Pulse Rate 79 82 77 Pulse Rate [ Anterior Bilateral Throughout] Pulse Rate [ Right Dorsalis Pedis] Respiratory 27 H 26 H 27 H Rate Respiratory Rate [Anterior Bilateral Throughout] Blood Pressure 124/52 99/50 108/51 O2 Sat by Pulse 93 93 93 Oximetry 08/21/18 08/21/18 08/21/18 08:00 08:30 09:00 Temperature 100.3 F H Pulse Rate 75 74 79 Pulse Rate [ Anterior Bilateral Throughout] Pulse Rate [ 85 Right Dorsalis Pedis] Respiratory 26 H 25 H 28 H Rate Respiratory Rate [Anterior Bilateral Throughout] Blood Pressure 111/51 117/55 116/53 O2 Sat by Pulse 94 94 91 Oximetry 08/21/18 08/21/18 08/21/18 09:05 09:08 09:30 Temperature Pulse Rate 79 81 Pulse Rate [ 91 H Anterior Bilateral Throughout] Pulse Rate [ Right Dorsalis Pedis] Respiratory 27 H Rate Respiratory 26 H Rate [Anterior Bilateral Throughout] Blood Pressure 116/53 113/56 O2 Sat by Pulse 95 91 Oximetry 08/21/18 08/21/18 08/21/18 10:00 10:30 10:54 Temperature Pulse Rate 89 82 76 Pulse Rate [ Anterior Bilateral Throughout] Pulse Rate [ Right Dorsalis Pedis] Respiratory 33 H 29 H Rate Respiratory Rate [Anterior Bilateral Throughout] Blood Pressure 128/62 101/59 102/53 O2 Sat by Pulse 93 94 97 Oximetry 08/21/18 08/21/18 11:00 11:30 Temperature Pulse Rate 78 84 Pulse Rate [ Anterior Bilateral Throughout] Pulse Rate [ Right Dorsalis Pedis] Respiratory 32 H 30 H Rate Respiratory Rate [Anterior Bilateral Throughout] Blood Pressure 111/57 117/58 O2 Sat by Pulse 95 93 Oximetry Constitutional: appears uncomfortable, other (elderly looking CF, normocephalic and atraumatic) Eyes: non-icteric ENT: oropharynx moist, other (ETT 23 cm MARTHA) Neck: supple, no lymphadenopathy, no JVD, other (no thyromegaly) Effort: mildly labored Ascultation: Bilateral: diminished breath sounds, rales, rhonchi (right lung field) Percussion: Bilateral: not dull Cardiovascular: regular rate and rhythm Gastrointestinal: normoactive bowel sounds, soft, non-tender, non-distended Integumentary: normal Extremities: no cyanosis, no edema, no ischemia or petechiae Neurologic: non-focal exam (grossly), unable to assess (encephalopathic) Psychiatric: other (unable to assess) CBC and BMP: 08/23/18 Unknown 08/23/18 Unknown ABG, PT/INR, D-dimer: ABG POC ABG pH 7.396 (7.35-7.45) 08/21/18 03:54 POC ABG pCO2 31.9 (35-45) L 08/21/18 03:54 POC ABG pO2 66 (80-105) L 08/21/18 03:54 POC ABG HCO3 19.6 (22-26 mml/L) 08/21/18 03:54 POC ABG Total CO2 21 (23-27mmol/L) 08/21/18 03:54 POC ABG O2 Sat 93 08/21/18 03:54 PT/INR, D-dimer D-Dimer 2768.33 ng/mlDDU (0-234) H 08/15/18 18:31 Abnormal lab findings: Abnormal Labs 08/15/18 08/15/18 08/15/18 17:52 17:52 17:52 WBC 12.7 H RBC 3.25 L Hgb Hct RDW Plt Count Seg Neuts % (Manual) Lymphocytes % (Manual) 6.0 L Nucleated RBC % Seg Neutrophils # Man Lymphocytes # (Manual) 0.8 L D-Dimer POC ABG pH POC ABG pCO2 POC ABG pO2 VBG pH Sodium Potassium 3.4 L Chloride 94.6 L Carbon Dioxide 17 L BUN 67 H Creatinine 3.5 H Glucose 131 H Hemoglobin A1c Lactic Acid 5.20 H* Calcium 7.6 L Phosphorus AST 887 H ALT 316 H Troponin T C-Reactive Protein Total Protein Albumin 3.1 L Triglycerides LDL Cholesterol Direct HDL Cholesterol Urine WBC (Auto) Salicylates Acetaminophen 08/15/18 08/15/18 08/15/18 18:11 18:19 18:31 WBC RBC Hgb Hct RDW Plt Count Seg Neuts % (Manual) Lymphocytes % (Manual) Nucleated RBC % Seg Neutrophils # Man Lymphocytes # (Manual) D-Dimer 2768.33 H POC ABG pH 7.173 L POC ABG pCO2 47.8 H POC ABG pO2 177 H VBG pH 7.187 L* Sodium Potassium Chloride Carbon Dioxide BUN Creatinine Glucose Hemoglobin A1c Lactic Acid Calcium Phosphorus AST ALT Troponin T C-Reactive Protein Total Protein Albumin Triglycerides LDL Cholesterol Direct HDL Cholesterol Urine WBC (Auto) Salicylates Acetaminophen 08/15/18 08/15/18 08/15/18 18:31 19:14 19:14 WBC RBC Hgb Hct RDW Plt Count Seg Neuts % (Manual) Lymphocytes % (Manual) Nucleated RBC % Seg Neutrophils # Man Lymphocytes # (Manual) D-Dimer POC ABG pH POC ABG pCO2 POC ABG pO2 VBG pH Sodium Potassium Chloride Carbon Dioxide BUN Creatinine Glucose Hemoglobin A1c Lactic Acid 2.70 H* Calcium Phosphorus AST ALT Troponin T 0.454 H* C-Reactive Protein Total Protein Albumin Triglycerides 356 H LDL Cholesterol Direct 4 L HDL Cholesterol 10 L Urine WBC (Auto) Salicylates < 0.3 L Acetaminophen 08/15/18 08/15/18 08/15/18 19:14 19:15 23:09 WBC RBC Hgb Hct RDW Plt Count Seg Neuts % (Manual) Lymphocytes % (Manual) Nucleated RBC % Seg Neutrophils # Man Lymphocytes # (Manual) D-Dimer POC ABG pH POC ABG pCO2 POC ABG pO2 VBG pH Sodium Potassium Chloride Carbon Dioxide BUN Creatinine Glucose Hemoglobin A1c Lactic Acid 3.20 H* Calcium Phosphorus AST ALT Troponin T C-Reactive Protein Total Protein Albumin Triglycerides LDL Cholesterol Direct HDL Cholesterol Urine WBC (Auto) 17.0 H Salicylates Acetaminophen < 5.0 L 08/15/18 08/16/18 08/16/18 23:09 01:41 05:38 WBC RBC 3.07 L Hgb 9.8 L Hct 28.7 L RDW Plt Count Seg Neuts % (Manual) 84.0 H Lymphocytes % (Manual) 6.0 L Nucleated RBC % 4.0 H Seg Neutrophils # Man Lymphocytes # (Manual) 0.5 L D-Dimer POC ABG pH 7.323 L POC ABG pCO2 34.7 L POC ABG pO2 78 L VBG pH Sodium Potassium Chloride Carbon Dioxide BUN Creatinine Glucose Hemoglobin A1c 6.4 H Lactic Acid Calcium Phosphorus AST ALT Troponin T C-Reactive Protein Total Protein Albumin Triglycerides LDL Cholesterol Direct HDL Cholesterol Urine WBC (Auto) Salicylates Acetaminophen 08/16/18 08/16/18 08/17/18 05:38 22:43 03:42 WBC RBC Hgb Hct RDW Plt Count Seg Neuts % (Manual) Lymphocytes % (Manual) Nucleated RBC % Seg Neutrophils # Man Lymphocytes # (Manual) D-Dimer POC ABG pH POC ABG pCO2 POC ABG pO2 VBG pH Sodium Potassium 2.9 L* 3.1 L 2.9 L* Chloride 108.8 H 111.9 H Carbon Dioxide 17 L 19 L 21 L BUN 62 H 40 H 33 H Creatinine 2.0 H Glucose 139 H 145 H Hemoglobin A1c Lactic Acid Calcium 7.8 L 8.3 L Phosphorus 1.50 L AST 619 H ALT 353 H Troponin T C-Reactive Protein Total Protein 6.1 L Albumin 2.8 L Triglycerides LDL Cholesterol Direct HDL Cholesterol Urine WBC (Auto) Salicylates Acetaminophen 08/17/18 08/17/18 08/18/18 11:02 16:42 03:28 WBC RBC Hgb Hct RDW Plt Count Seg Neuts % (Manual) Lymphocytes % (Manual) Nucleated RBC % Seg Neutrophils # Man Lymphocytes # (Manual) D-Dimer POC ABG pH 7.483 H 7.499 H POC ABG pCO2 POC ABG pO2 VBG pH Sodium 147 H Potassium 3.2 L Chloride 115.8 H Carbon Dioxide BUN 23 H Creatinine Glucose 121 H Hemoglobin A1c Lactic Acid Calcium 8.1 L Phosphorus 2.30 L D AST ALT Troponin T C-Reactive Protein Total Protein Albumin Triglycerides LDL Cholesterol Direct HDL Cholesterol Urine WBC (Auto) Salicylates Acetaminophen 08/18/18 08/18/18 08/18/18 04:10 13:39 13:39 WBC RBC Hgb Hct RDW Plt Count Seg Neuts % (Manual) Lymphocytes % (Manual) Nucleated RBC % Seg Neutrophils # Man Lymphocytes # (Manual) D-Dimer POC ABG pH POC ABG pCO2 POC ABG pO2 VBG pH Sodium 147 H Potassium 3.3 L Chloride 111.9 H Carbon Dioxide BUN 21 H Creatinine Glucose 113 H Hemoglobin A1c Lactic Acid Calcium Phosphorus 1.50 L D AST ALT Troponin T 0.317 H* D C-Reactive Protein 10.70 H Total Protein Albumin Triglycerides LDL Cholesterol Direct HDL Cholesterol Urine WBC (Auto) Salicylates Acetaminophen 08/18/18 08/19/18 08/19/18 16:51 03:47 04:15 WBC RBC Hgb Hct RDW Plt Count Seg Neuts % (Manual) Lymphocytes % (Manual) Nucleated RBC % Seg Neutrophils # Man Lymphocytes # (Manual) D-Dimer POC ABG pH 7.454 H 7.482 H POC ABG pCO2 POC ABG pO2 65 L VBG pH Sodium 154 H Potassium 3.3 L Chloride 115.1 H Carbon Dioxide BUN 19 H Creatinine Glucose 117 H Hemoglobin A1c Lactic Acid Calcium 7.8 L Phosphorus AST ALT Troponin T C-Reactive Protein Total Protein Albumin Triglycerides LDL Cholesterol Direct HDL Cholesterol Urine WBC (Auto) Salicylates Acetaminophen 08/19/18 08/20/18 08/20/18 16:18 03:51 05:25 WBC RBC Hgb Hct RDW Plt Count Seg Neuts % (Manual) Lymphocytes % (Manual) Nucleated RBC % Seg Neutrophils # Man Lymphocytes # (Manual) D-Dimer POC ABG pH 7.483 H POC ABG pCO2 33.4 L POC ABG pO2 51 L 74 L VBG pH Sodium 146 H D Potassium Chloride 111.2 H Carbon Dioxide BUN 24 H Creatinine Glucose 141 H Hemoglobin A1c Lactic Acid Calcium 8.1 L Phosphorus AST 65 H ALT 104 H Troponin T C-Reactive Protein Total Protein 6.2 L Albumin 2.6 L Triglycerides LDL Cholesterol Direct HDL Cholesterol Urine WBC (Auto) Salicylates Acetaminophen 08/21/18 08/21/18 08/21/18 03:54 05:45 05:45 WBC 24.1 H RBC 2.83 L Hgb 8.8 L Hct 26.7 L RDW 15.7 H Plt Count 127 L Seg Neuts % (Manual) 94.0 H Lymphocytes % (Manual) 4.0 L Nucleated RBC % 1.0 H Seg Neutrophils # Man 22.7 H Lymphocytes # (Manual) 1.0 L D-Dimer POC ABG pH POC ABG pCO2 31.9 L POC ABG pO2 66 L VBG pH Sodium Potassium 3.5 L Chloride 109.4 H Carbon Dioxide 21 L BUN 50 H Creatinine 2.0 H D Glucose 144 H Hemoglobin A1c Lactic Acid Calcium 7.6 L Phosphorus AST ALT Troponin T C-Reactive Protein Total Protein 5.3 L Albumin 2.1 L Triglycerides LDL Cholesterol Direct HDL Cholesterol Urine WBC (Auto) Salicylates Acetaminophen Allied health notes reviewed: nursing
[2018-08-21] MEDS ORDERED: POTASSIUM CHLORIDE FEEDTUBE NR (13:25)
--- NOTE | 2018-08-21 13:33 | Progress Note ---
Assessment and Plan 1. New onset cardiomyopathy LV ejection fraction 25-30% 2. Severe polymicrobial sepsis/septic shock 3. Respiratory failure 4. Altered mental status probably secondary to metabolic encephalopathy Plan. Continue supportive cardiac management. Continue IV antibiotics wean off IV pressors and sedation as tolerated CXR Subjective Date of service: 08/21/18 Principal diagnosis: Acute hypoxemic hypercapnic Resp failure; AE-COPD; Acute kidney injury Interval history: Unresponsive intubated and sedated Objective Vital Signs Temp Pulse Pulse Pulse Resp Resp BP 08/21/18 12:00 100.0 F H 08/21/18 11:30 84 30 H 117/58 08/21/18 11:00 78 32 H 111/57 08/21/18 10:54 76 102/53 08/21/18 10:30 82 29 H 101/59 08/21/18 10:00 89 33 H 128/62 08/21/18 09:30 81 27 H 113/56 08/21/18 09:08 91 H 26 H 08/21/18 09:05 79 116/53 08/21/18 09:00 79 28 H 116/53 08/21/18 08:30 74 25 H 117/55 08/21/18 08:00 100.3 F H 75 85 26 H 111/51 08/21/18 07:30 77 27 H 108/51 08/21/18 07:00 82 26 H 99/50 08/21/18 06:30 79 27 H 124/52 08/21/18 06:00 80 28 H 105/55 08/21/18 05:58 78 27 H 08/21/18 05:30 81 28 H 104/55 08/21/18 05:00 84 37 H 129/63 08/21/18 04:30 80 28 H 115/45 08/21/18 04:00 100.9 F H 81 81 29 H 144/63 08/21/18 03:30 79 30 H 122/68 08/21/18 03:01 78 29 H 107/53 08/21/18 02:30 76 29 H 91/58 08/21/18 02:00 86 28 H 102/54 08/21/18 01:30 78 29 H 101/56 08/21/18 01:00 80 29 H 99/56 08/21/18 00:30 80 30 H 109/58 08/21/18 00:00 100.8 F H 78 76 78 32 H 29 H 101/59 08/20/18 23:30 80 30 H 107/47 08/20/18 23:29 77 30 H 91/50 08/20/18 23:20 81 91/50 08/20/18 23:00 78 32 H 91/51 08/20/18 22:30 93 H 34 H 87/54 08/20/18 22:01 91 H 32 H 88/46 08/20/18 22:00 76 91 H 32 H 08/20/18 21:30 79 31 H 133/66 08/20/18 21:16 79 123/72 08/20/18 21:00 79 31 H 123/72 08/20/18 20:31 83 37 H 121/60 08/20/18 20:23 29 H 08/20/18 20:00 102.2 F H 76 76 27 H 123/64 08/20/18 19:30 81 28 H 121/60 08/20/18 19:22 79 132/65 08/20/18 19:00 79 32 H 132/65 08/20/18 18:55 101.9 F H 08/20/18 18:30 80 31 H 126/66 08/20/18 18:00 78 31 H 135/63 08/20/18 17:43 80 120/72 08/20/18 17:30 78 31 H 120/72 08/20/18 17:00 79 31 H 122/63 08/20/18 16:30 81 32 H 127/70 08/20/18 16:00 101.9 F H 79 82 30 H 135/70 08/20/18 15:30 81 36 H 131/69 08/20/18 15:03 78 32 H 08/20/18 15:00 77 34 H 131/67 08/20/18 14:47 79 37 H 08/20/18 14:45 79 127/64 08/20/18 14:30 79 39 H 127/64 08/20/18 14:00 78 36 H 97/61 Pulse Ox 08/21/18 12:00 08/21/18 11:30 93 08/21/18 11:00 95 08/21/18 10:54 97 08/21/18 10:30 94 08/21/18 10:00 93 08/21/18 09:30 91 08/21/18 09:08 08/21/18 09:05 95 08/21/18 09:00 91 08/21/18 08:30 94 08/21/18 08:00 94 08/21/18 07:30 93 08/21/18 07:00 93 08/21/18 06:30 93 08/21/18 06:00 92 08/21/18 05:58 94 08/21/18 05:30 91 08/21/18 05:00 94 08/21/18 04:30 95 08/21/18 04:00 93 08/21/18 03:30 90 08/21/18 03:01 92 08/21/18 02:30 92 08/21/18 02:00 93 08/21/18 01:30 93 08/21/18 01:00 90 08/21/18 00:30 90 08/21/18 00:00 93 08/20/18 23:30 92 08/20/18 23:29 94 08/20/18 23:20 95 08/20/18 23:00 93 08/20/18 22:30 94 08/20/18 22:01 91 08/20/18 22:00 90 08/20/18 21:30 93 08/20/18 21:16 08/20/18 21:00 89 08/20/18 20:31 91 08/20/18 20:23 08/20/18 20:00 92 08/20/18 19:30 92 08/20/18 19:22 95 08/20/18 19:00 89 08/20/18 18:55 08/20/18 18:30 89 08/20/18 18:00 90 08/20/18 17:43 93 08/20/18 17:30 91 08/20/18 17:00 89 08/20/18 16:30 90 08/20/18 16:00 92 08/20/18 15:30 90 08/20/18 15:03 08/20/18 15:00 90 08/20/18 14:47 08/20/18 14:45 96 08/20/18 14:30 92 08/20/18 14:00 96 - Physical Examination General: Other (intubated and sedated) HEENT: Positive: PERRL, Other (ET tube in place) Neck: Positive: neck supple, trachea midline Cardiac: Positive: Regular Rate, S1/S2, PMI, Laterally Displaced. Negative: S3, S4 Lungs: Positive: clear to auscultation, No Wheeze, Rales, Rhonchi Abdomen: Positive: Soft, Active Bowel Sounds Extremities: Absent: edema - Labs and Meds Cardiac Enzymes 08/21/18 Range/Units 05:45 AST 28 (5-40) units/L CBC 08/21/18 Range/Units 05:45 WBC 24.1 H (4.5-11.0) K/mm3 RBC 2.83 L (3.65-5.03) M/mm3 Hgb 8.8 L (10.1-14.3) gm/dl Hct 26.7 L (30.3-42.9) % Plt Count 127 L (140-440) K/mm3 Comprehensive Metabolic Panel 08/21/18 Range/Units 05:45 Sodium 143 (137-145) mmol/L Potassium 3.5 L (3.6-5.0) mmol/L Chloride 109.4 H (98-107) mmol/L Carbon Dioxide 21 L (22-30) mmol/L BUN 50 H (7-17) mg/dL Creatinine 2.0 H D (0.7-1.2) mg/dL Glucose 144 H (65-100) mg/dL Calcium 7.6 L (8.4-10.2) mg/dL AST 28 (5-40) units/L ALT 53 (7-56) units/L Alkaline Phosphatase 76 (35-129) units/L Total Protein 5.3 L (6.3-8.2) g/dL Albumin 2.1 L (3.9-5) g/dL - Allied health notes Allied health notes reviewed: nursing
[2018-08-21] MEDS ORDERED: LOVENOX SUB-Q SCH (22:00)
[2018-08-22] MEDS ORDERED: NACL 0.9% 250ML 250 ML IV ONE (00:26)
[2018-08-22] MEDS: LEVOPHED DRIP 4 MG/NS 250 ML 4 MG/250 ML BAG IV SCH (00:50)
[2018-08-22] MEDS: DUONEB *Not for PRN Use IH SCH ×4 (03:08→19:21)
[2018-08-22] MEDS: fentaNYL DRIP Premix 2,000 MCG/100 ML BAG IV SCH ×3 (06:46→18:37)
[2018-08-22] MEDS: DIPRIVAN 10 MG/ML 1,000 MG/100 ML BOTTLE IV SCH ×2 (07:04→16:42)
[2018-08-22 07:27] LABS: Calcium 7.8 mg/dL (8.4-10.2)
[2018-08-22] MEDS: BROVANA NEBU IH SCH ×2 (07:28→19:21)
[2018-08-22] MEDS: PULMICORT IH SCH ×2 (07:28→19:21)
--- NOTE | 2018-08-22 09:31 | Progress Note ---
Assessment and Plan 1. Acute kidney injury: Recurrent CHANDANA. Recent increase in the creatinine is likely due to sepsis / hypotension. Monitor renal function. Renal prognosis is guarded. Avoid nephrotoxic agents. Meds dosage based on GFR. 2. FEN: Hypokalemia, imporved. Hypernatremia, improved. Metabolic acidosis, monitor. 3. Acute encephalopathy. 4. Respiratory failure: On vent. 5. Sepsis: Followed by ID. 6. Fungemia. D/w her at the bedside. Subjective Date of service: 08/22/18 Principal diagnosis: Acute hypoxemic hypercapnic Resp failure; AE-COPD; Acute kidney injury Interval history: Patient was seen and examined at the bedside. Objective - Vital Signs Vital signs: Vital Signs - 12hr 08/21/18 08/21/18 08/21/18 22:00 22:30 23:00 Temperature Pulse Rate 101 H 100 H 99 H Pulse Rate [ Anterior Bilateral Throughout] Pulse Rate [ 100 H Right Dorsalis Pedis] Respiratory 39 H 38 H 37 H Rate Respiratory Rate [Anterior Bilateral Throughout] Blood Pressure 160/73 156/75 158/74 O2 Sat by Pulse 94 92 92 Oximetry 08/21/18 08/21/18 08/21/18 23:10 23:25 23:30 Temperature Pulse Rate 100 H 102 H 101 H Pulse Rate [ Anterior Bilateral Throughout] Pulse Rate [ Right Dorsalis Pedis] Respiratory 38 H Rate Respiratory Rate [Anterior Bilateral Throughout] Blood Pressure 158/74 153/78 161/84 O2 Sat by Pulse 95 94 Oximetry 08/22/18 08/22/18 08/22/18 00:00 00:30 01:00 Temperature 102.6 F H Pulse Rate 96 H 92 H 96 H Pulse Rate [ Anterior Bilateral Throughout] Pulse Rate [ 96 H Right Dorsalis Pedis] Respiratory 38 H 35 H 35 H Rate Respiratory Rate [Anterior Bilateral Throughout] Blood Pressure 118/59 69/48 102/52 O2 Sat by Pulse 94 94 95 Oximetry 08/22/18 08/22/18 08/22/18 01:30 02:00 02:30 Temperature Pulse Rate 85 87 87 Pulse Rate [ Anterior Bilateral Throughout] Pulse Rate [ Right Dorsalis Pedis] Respiratory 35 H 35 H 35 H Rate Respiratory Rate [Anterior Bilateral Throughout] Blood Pressure 109/55 122/58 134/62 O2 Sat by Pulse 95 94 94 Oximetry 08/22/18 08/22/18 08/22/18 03:00 03:09 03:30 Temperature Pulse Rate 90 93 H Pulse Rate [ 89 Anterior Bilateral Throughout] Pulse Rate [ 96 H Right Dorsalis Pedis] Respiratory 35 H 29 H Rate Respiratory 32 H Rate [Anterior Bilateral Throughout] Blood Pressure 120/58 125/60 O2 Sat by Pulse 95 96 Oximetry 08/22/18 08/22/18 08/22/18 04:00 04:30 05:00 Temperature 102.9 F H Pulse Rate 99 H 91 H 88 Pulse Rate [ Anterior Bilateral Throughout] Pulse Rate [ 96 H Right Dorsalis Pedis] Respiratory 28 H 29 H 30 H Rate Respiratory Rate [Anterior Bilateral Throughout] Blood Pressure 127/66 111/62 115/60 O2 Sat by Pulse 96 97 96 Oximetry 08/22/18 08/22/18 08/22/18 05:30 06:00 06:30 Temperature Pulse Rate 90 86 100 H Pulse Rate [ Anterior Bilateral Throughout] Pulse Rate [ Right Dorsalis Pedis] Respiratory 33 H 37 H 44 H Rate Respiratory Rate [Anterior Bilateral Throughout] Blood Pressure 124/61 139/62 144/76 O2 Sat by Pulse 95 94 91 Oximetry 08/22/18 08/22/18 08/22/18 07:00 07:24 07:28 Temperature Pulse Rate 100 H 97 H Pulse Rate [ 98 H Anterior Bilateral Throughout] Pulse Rate [ Right Dorsalis Pedis] Respiratory 42 H Rate Respiratory 40 H Rate [Anterior Bilateral Throughout] Blood Pressure 152/74 150/69 O2 Sat by Pulse 93 98 Oximetry 08/22/18 08/22/18 08/22/18 07:30 07:35 08:00 Temperature 102.9 F H Pulse Rate 99 H 98 H Pulse Rate [ 100 H Anterior Bilateral Throughout] Pulse Rate [ Right Dorsalis Pedis] Respiratory 37 H 40 H Rate Respiratory 34 H Rate [Anterior Bilateral Throughout] Blood Pressure 139/73 147/73 O2 Sat by Pulse 95 93 Oximetry - General Appearance General appearance: well-developed, well-nourished, appears stated age, sedated on ventilator, intubated EENT: ATNC Neck: supple Respiratory: Present: Clear to Ascultation Cardiology: regular, S1S2, no murmurs Gastrointestinal: normoactive bowel sounds, no tenderness Integumentary: no rash Neurologic: other (sedated) Musculoskeletal: other (trace dependent edema noted) - Lab 08/21/18 05:45 08/22/18 06:45 Most recent lab results Calcium 7.8 mg/dL (8.4-10.2) L 08/22/18 06:45 Phosphorus 3.50 mg/dL (2.5-4.5) D 08/20/18 05:25 Magnesium 2.10 mg/dL (1.7-2.3) 08/21/18 05:45 Medications & Allergies - Medications Allergies/Adverse Reactions: Allergies No Known Allergies Allergy (Unverified 08/15/18 16:49) Home Medications: Home Medications Medication Instructions Recorded Confirmed Last Taken Type Carvedilol 6.25 mg PO BID 08/15/18 08/15/18 Unknown History DULoxetine 60 mg PO QDAY 08/15/18 08/15/18 Unknown History Gabapentin 600 mg PO Q6HR PRN 08/15/18 08/15/18 Unknown History Methylphenidate 5 mg PO TID 08/15/18 08/15/18 Unknown History Morphabond ER 60 mg PO Q12HR 08/15/18 08/15/18 Unknown History Pravastatin Sodium 10 mg PO QDAY 08/15/18 08/15/18 Unknown History Tizanidine HCl 4 mg PO Q12HR 08/15/18 08/15/18 Unknown History oxyCODONE /ACETAMINOPHEN 7.5 - 325 mg PO Q8HR 08/15/18 08/15/18 Unknown History Active Medications: Generic Name Dose Route Start Last Admin Trade Name Freq PRN Reason Stop Dose Admin Acetaminophen 650 mg 08/15/18 22:12 08/21/18 03:53 Tylenol PO 650 mg Q4H PRN Administration Pain MILD(1-3)/Fever >100.5/MONDRAGON Acetaminophen 650 mg 08/16/18 17:01 08/16/18 17:11 Tylenol AR 650 mg Q4H PRN Administration Pain, Mild (1-3) Albuterol 2.5 mg 08/17/18 17:00 Proventil IH Q3HRT PRN Shortness Of Breath Albuterol/Ipratropium 1 ampul 08/20/18 14:00 08/22/18 07:28 Duoneb *Not For Prn Use* IH Not Given Q6HRT LAMAR Lipase/Protease/Amylase 1 each 08/17/18 15:55 Pancresam Elizabeth 10,500 Unit FEEDTUBE PRN PRN For Clogged Feeding Tube Arformoterol Tartrate 15 mcg 08/18/18 20:00 08/22/18 07:28 Brovana Nebu IH 15 mcg Q12HRT LAMAR Administration Budesonide 0.5 mg 08/18/18 20:00 08/22/18 07:28 Pulmicort IH 0.5 mg Q12HRT LAMAR Administration Carvedilol 6.25 mg 08/15/18 22:45 08/21/18 23:25 Coreg PO 6.25 mg BID LAMAR Administration Duloxetine HCl 60 mg 08/16/18 10:00 08/21/18 09:33 Cymbalta PO Not Given QDAY LAMAR Enoxaparin Sodium 30 mg 08/21/18 22:00 08/21/18 23:25 Lovenox SUB-Q 30 mg QDAY@2200 LAMAR Administration Famotidine 20 mg 08/21/18 10:00 08/21/18 09:30 Pepcid PO 20 mg DAILY [facility] Administration Fentanyl 50 mcg 08/15/18 21:55 08/17/18 13:36 Sublimaze IV 50 mcg Q10MIN PRN Administration ANALGESIA Hydralazine HCl 10 mg 08/19/18 13:59 08/19/18 15:06 Apresoline IV 10 mg Q3H PRN Administration SBP > 160, DBP > 100 Hydrophilic Ointment 1 applic 08/15/18 21:55 Vaseline Lip Therapy TP Q2HR PRN Dry Lips Fentanyl Citrate 2,000 mcg in 100 mls @ 4.082 mls/hr 08/15/18 22:00 08/22/18 06:46 Fentanyl Drip Premix IV 4 mcg/kg/hr TITR LAMAR 16.329 mls/hr Administration Protocol 1 MCG/KG/HR Propofol 1,000 mg in 100 mls @ 2.449 mls/hr 08/15/18 21:15 08/22/18 07:04 Diprivan 10 Mg/Ml IV 10 mcg/kg/min TITR LAMAR 4.899 mls/hr Administration Protocol 5 MCG/KG/MIN Norepinephrine 4 mg in 250 mls @ 7.5 mls/hr 08/17/18 20:00 08/22/18 06:00 Levophed Drip 4 Mg/Ns 250 Ml IV 0 mcg/min TITR LAMAR 0 mls/hr Titration Protocol 2 MCG/MIN Metronidazole 500 mg in 100 mls @ 100 mls/hr 08/19/18 14:00 08/21/18 23:27 Flagyl 500 Mg/100 Ml IV 100 mls/hr Q8HR LAMAR Administration Protocol Ceftriaxone Sodium 2 gm in 100 mls @ 200 mls/hr 08/20/18 10:00 08/21/18 11:07 Rocephin/Ns 2 Gm/100 Ml IV Infused Q24HR LAMAR Infusion Protocol Micafungin Sodium 100 mg/ 100 mls @ 100 mls/hr 08/20/18 18:00 08/21/18 11:06 Sodium Chloride IV Infused QDAY LAMAR Infusion Protocol Metoclopramide HCl 5 mg 08/15/18 22:50 Reglan IV Q6H PRN Nausea And Vomiting Ondansetron HCl 4 mg 08/15/18 22:12 Zofran IV Q8H PRN Nausea And Vomiting Quetiapine Fumarate 100 mg 08/20/18 22:00 08/21/18 23:26 Seroquel PO 100 mg QHS LAMAR Administration Simple Syrup 15 ml 08/17/18 15:55 Simple Syrup FEEDTUBE PRN PRN Hypoglycemia Simple Syrup 30 ml 08/17/18 15:55 Simple Syrup FEEDTUBE PRN PRN Hypoglycemia Sodium Bicarbonate 325 mg 08/17/18 15:55 Sodium Bicarbonate FEEDTUBE PRN PRN For Clogged Feeding Tube Sodium Chloride 10 ml 08/16/18 10:00 08/21/18 23:29 Sodium Chloride Flush Syringe 10 Ml IV 10 ml BID LAMAR Administration Sodium Chloride 10 ml 08/15/18 22:12 08/18/18 21:52 Sodium Chloride Flush Syringe 10 Ml IV 10 ml PRN PRN Administration LINE FLUSH
[2018-08-22] MEDS: ROCEPHIN/NS 2 GM/100 ML 2 GM/100 ML BAG IV SCH (10:40)
[2018-08-22] MEDS: MYCAMINE 100 MG in NACL 0.9% 100 ML IV SCH (10:41)
[2018-08-22] MEDS: PEPCID PO SCH (10:41)
[2018-08-22] MEDS: COREG PO SCH (10:41)
--- NOTE | 2018-08-22 10:41 | Progress Note ---
Assessment and Plan Assessment and plan: --Persistent fever; secondary to severe sepsis Continue current antibiotics and new set of cultures ID following, --Aspiration pneumonia; continue Rocephin and Flagyl Patient is also on Diflucan, ID following Follow-up chest x-ray; partial improvement of pneumonia --Sepsis; secondary to aspiration pneumonia, continue current antibiotics Follow cultures, ID following --Acute hypoxic hypercapnic respiratory failure; requiring mechanical ventilation Continue ventilatory support, nebulizers, IV antibiotics, supportive care wean as tolerated and extubate, pulmonary following --Hypernatremia; free water flushes, improved Closely monitor electrolytes, trending down --Hypokalemia; replace with KCl, follow electrolytes --Severe malnutrition/hypoalbuminemia; Nutrition consults and supportive care --Acute kidney injury; probably secondary to ATN avoid nephrotoxins, Nephrology following ----Acute systolic congestive heart failure; Ejection fraction 25-30%, continue current management Cardiology following --Elevated Transaminases; possible congested liver Levels trending down, check acute hepatitis panel Consider GI evaluation if needed --DVT prophylaxis; Lovenox Consults and recommendations noted and appreciated Plan of care reviewed with the patient's nurse Patient is critically ill with poor prognosis The high probability of a clinically significant, sudden or life threatening de terioration of the [respiratory, cardiology, ID, renal and metabolic] system(s) required my full an d direct attention, intervention and personal management. The aggregate critical care time was [32] minutes. This time is in addition to time spent performing reported procedures but includes the following: [x] Data Review and interpretation [x] Patient assessment and monitoring of vital signs [x] Documentation [x] Medication orders and management History Interval history: Patient seen and examined medical records reviewed Patient spiked fever Remains intubated on ventilatory support Agitated, patient's son at the bedside Not in acute distress Vital signs reviewed Hospitalist Physical - Constitutional Vitals: Temp Pulse Resp BP Pulse Ox 102.9 F H 98 H 40 H 147/73 93 08/22/18 08:00 08/22/18 08:00 08/22/18 08:00 08/22/18 08:00 08/22/18 08:00 General appearance: Present: no acute distress, well-nourished, other (intubated on ventilatory support, sedated) - EENT Eyes: Present: PERRL, EOM intact - Neck Neck: Present: supple, normal ROM - Respiratory Respiratory effort: normal Respiratory: bilateral: diminished, rhonchi, negative: rales, wheezing - Cardiovascular Rhythm: regular Heart Sounds: Present: S1 & S2 - Extremities Extremities: no ischemia, No edema - Abdominal General gastrointestinal: soft, non-tender, non-distended, normal bowel sounds - Integumentary Integumentary: Present: clear, warm - Psychiatric Psychiatric: other (intubated on vent) - Neurologic Neurologic: other (intubated on vent) Results - Labs CBC & Chem 7: 08/23/18 Unknown 08/23/18 Unknown Labs: Laboratory Last Values WBC 24.1 K/mm3 (4.5-11.0) H 08/21/18 05:45 RBC 2.83 M/mm3 (3.65-5.03) L 08/21/18 05:45 Hgb 8.8 gm/dl (10.1-14.3) L 08/21/18 05:45 Hct 26.7 % (30.3-42.9) L 08/21/18 05:45 MCV 94 fl (79-97) 08/21/18 05:45 MCH 31 pg (28-32) 08/21/18 05:45 MCHC 33 % (30-34) 08/21/18 05:45 RDW 15.7 % (13.2-15.2) H 08/21/18 05:45 Plt Count 127 K/mm3 (140-440) L 08/21/18 05:45 Add Manual Diff Complete 08/21/18 05:45 Total Counted 100 08/21/18 05:45 Seg Neuts % (Manual) 94.0 % (40.0-70.0) H 08/21/18 05:45 Band Neutrophils % 1.0 % 08/21/18 05:45 Lymphocytes % (Manual) 4.0 % (13.4-35.0) L 08/21/18 05:45 Reactive Lymphs % (Man) 0 % 08/21/18 05:45 Monocytes % (Manual) 0 % (0.0-7.3) 08/21/18 05:45 Eosinophils % (Manual) 1.0 % (0.0-4.3) 08/21/18 05:45 Basophils % (Manual) 0 % (0.0-1.8) 08/21/18 05:45 Metamyelocytes % 0 % 08/21/18 05:45 Myelocytes % 0 % 08/21/18 05:45 Promyelocytes % 0 % 08/21/18 05:45 Blast Cells % 0 % 08/21/18 05:45 Nucleated RBC % 1.0 % (0.0-0.9) H 08/21/18 05:45 Seg Neutrophils # Man 22.7 K/mm3 (1.8-7.7) H 08/21/18 05:45 Band Neutrophils # 0.2 K/mm3 08/21/18 05:45 Lymphocytes # (Manual) 1.0 K/mm3 (1.2-5.4) L 08/21/18 05:45 Abs React Lymphs (Man) 0.0 K/mm3 08/21/18 05:45 Monocytes # (Manual) 0.0 K/mm3 (0.0-0.8) 08/21/18 05:45 Eosinophils # (Manual) 0.2 K/mm3 (0.0-0.4) 08/21/18 05:45 Basophils # (Manual) 0.0 K/mm3 (0.0-0.1) 08/21/18 05:45 Metamyelocytes # 0.0 K/mm3 08/21/18 05:45 Myelocytes # 0.0 K/mm3 08/21/18 05:45 Promyelocytes # 0.0 K/mm3 08/21/18 05:45 Blast Cells # 0.0 K/mm3 08/21/18 05:45 WBC Morphology Not Reportable 08/21/18 05:45 Hypersegmented Neuts Not Reportable 08/21/18 05:45 Hyposegmented Neuts Not Reportable 08/21/18 05:45 Hypogranular Neuts Not Reportable 08/21/18 05:45 Smudge Cells Not Reportable 08/21/18 05:45 Toxic Granulation Not Reportable 08/21/18 05:45 Toxic Vacuolation Not Reportable 08/21/18 05:45 Dohle Bodies Not Reportable 08/21/18 05:45 Pelger-Huet Anomaly Not Reportable 08/21/18 05:45 Rosy Rods Not Reportable 08/21/18 05:45 Platelet Estimate Consistent w auto 08/21/18 05:45 Clumped Platelets Not Reportable 08/21/18 05:45 Plt Clumps, EDTA Not Reportable 08/21/18 05:45 Large Platelets Not Reportable 08/21/18 05:45 Giant Platelets Few 08/21/18 05:45 Platelet Satelliting Not Reportable 08/21/18 05:45 Plt Morphology Comment Not Reportable 08/21/18 05:45 RBC Morphology Not Reportable 08/21/18 05:45 Dimorphic RBCs Not Reportable 08/21/18 05:45 Polychromasia Not Reportable 08/21/18 05:45 Hypochromasia Few 08/21/18 05:45 Poikilocytosis Not Reportable 08/21/18 05:45 Anisocytosis Not Reportable 08/21/18 05:45 Microcytosis Not Reportable 08/21/18 05:45 Macrocytosis Not Reportable 08/21/18 05:45 Spherocytes Few 08/21/18 05:45 Pappenheimer Bodies Not Reportable 08/21/18 05:45 Sickle Cells Not Reportable 08/21/18 05:45 Target Cells 1+ 08/21/18 05:45 Tear Drop Cells Not Reportable 08/21/18 05:45 Ovalocytes Not Reportable 08/21/18 05:45 Helmet Cells Not Reportable 08/21/18 05:45 [place] Bodies Not Reportable 08/21/18 05:45 [place] Rings Not Reportable 08/21/18 05:45 Bertha Cells Not Reportable 08/21/18 05:45 Bite Cells Not Reportable 08/21/18 05:45 Crenated Cell Not Reportable 08/21/18 05:45 Elliptocytes Not Reportable 08/21/18 05:45 Acanthocytes (Spur) Not Reportable 08/21/18 05:45 Rouleaux Not Reportable 08/21/18 05:45 Hemoglobin C Crystals Not Reportable 08/21/18 05:45 Schistocytes Not Reportable 08/21/18 05:45 Malaria parasites Not Reportable 08/21/18 05:45 Ceasar Bodies Not Reportable 08/21/18 05:45 Hem Pathologist Commnt No 08/21/18 05:45 D-Dimer 2768.33 ng/mlDDU (0-234) H 08/15/18 18:31 POC ABG pH 7.360 (7.35-7.45) 08/22/18 06:20 POC ABG pCO2 32.9 (35-45) L 08/22/18 06:20 POC ABG pO2 94 (80-105) 08/22/18 06:20 POC ABG HCO3 18.6 (22-26 mml/L) 08/22/18 06:20 POC ABG Total CO2 20 (23-27mmol/L) 08/22/18 06:20 POC ABG O2 Sat 97 08/22/18 06:20 POC ABG Base Excess -7 ((-2) - (+3)mmol/L) 08/22/18 06:20 VBG pH 7.187 (7.320-7.420) L* 08/15/18 18:19 FiO2 50 % 08/22/18 06:20 Sodium 145 mmol/L (137-145) 08/22/18 06:45 Potassium 4.2 mmol/L (3.6-5.0) 08/22/18 06:45 Chloride 112.4 mmol/L (98-107) H 08/22/18 06:45 Carbon Dioxide 20 mmol/L (22-30) L 08/22/18 06:45 Anion Gap 17 mmol/L 08/22/18 06:45 BUN 61 mg/dL (7-17) H 08/22/18 06:45 Creatinine 1.9 mg/dL (0.7-1.2) H 08/22/18 06:45 Estimated GFR 26 ml/min 08/22/18 06:45 BUN/Creatinine Ratio 32 % 08/22/18 06:45 Glucose 154 mg/dL (65-100) H 08/22/18 06:45 Hemoglobin A1c 6.4 % (4-6) H 08/15/18 23:09 Lactic Acid 1.70 mmol/L (0.7-2.0) 08/16/18 05:38 Calcium 7.8 mg/dL (8.4-10.2) L 08/22/18 06:45 Phosphorus 3.50 mg/dL (2.5-4.5) D 08/20/18 05:25 Magnesium 2.10 mg/dL (1.7-2.3) 08/21/18 05:45 Total Bilirubin 0.20 mg/dL (0.1-1.2) 08/21/18 05:45 AST 28 units/L (5-40) 08/21/18 05:45 ALT 53 units/L (7-56) 08/21/18 05:45 Alkaline Phosphatase 76 units/L (35-129) 08/21/18 05:45 Troponin T 0.317 ng/mL (0.00-0.029) H* D 08/18/18 13:39 C-Reactive Protein 10.70 mg/dL (0.00-1.30) H 08/18/18 13:39 Total Protein 5.3 g/dL (6.3-8.2) L 08/21/18 05:45 Albumin 2.1 g/dL (3.9-5) L 08/21/18 05:45 Albumin/Globulin Ratio 0.7 % 08/21/18 05:45 Triglycerides 197 mg/dL (2-149) H 08/22/18 06:45 Cholesterol 87 mg/dL (50-199) 08/15/18 18:31 LDL Cholesterol Direct 4 mg/dL (50-130) L 08/15/18 18:31 HDL Cholesterol 10 mg/dL (40-59) L 08/15/18 18:31 Cholesterol/HDL Ratio 8.70 % 08/15/18 18:31 Urine Color Rosemarie (Yellow) 08/15/18 19:15 Urine Turbidity Cloudy (Clear) 08/15/18 19:15 Urine pH 5.0 (5.0-7.0) 08/15/18 19:15 Ur Specific [place] 1.025 (1.003-1.030) 08/15/18 19:15 Urine Protein 30 mg/dl mg/dL (Negative) 08/15/18 19:15 Urine Glucose (UA) Neg mg/dL (Negative) 08/15/18 19:15 Urine Ketones Neg mg/dL (Negative) 08/15/18 19:15 Urine Blood Mod (Negative) 08/15/18 19:15 Urine Nitrite Neg (Negative) 08/15/18 19:15 Urine Bilirubin Neg (Negative) 08/15/18 19:15 Urine Urobilinogen 2.0 mg/dL (<2.0) 08/15/18 19:15 Ur Leukocyte Esterase Mod (Negative) 08/15/18 19:15 Urine WBC (Auto) 17.0 /HPF (0.0-6.0) H 08/15/18 19:15 Urine RBC (Auto) 5.0 /HPF (0.0-6.0) 08/15/18 19:15 Urine WBC Clumps 2+ /HPF 08/15/18 19:15 Amorphous Crystals 1+ 08/15/18 19:15 Hyaline Casts 54 /LPF 08/15/18 19:15 Granular Casts 14 /LPF 08/15/18 19:15 Urine Mucus Few /HPF 08/15/18 19:15 Salicylates < 0.3 mg/dL (2.8-20.0) L 08/15/18 19:14 Urine Opiates Screen Presumptive positive 08/15/18 19:15 Urine Methadone Screen Presumptive negative 08/15/18 19:15 Acetaminophen < 5.0 ug/mL (10.0-30.0) L 08/15/18 19:14 Ur Barbiturates Screen Presumptive negative 08/15/18 19:15 Ur Phencyclidine Scrn Presumptive negative 08/15/18 19:15 Ur Amphetamines Screen Presumptive negative 08/15/18 19:15 U Benzodiazepines Scrn Presumptive negative 08/15/18 19:15 Urine Cocaine Screen Presumptive negative 08/15/18 19:15 U Marijuana (THC) Screen Presumptive negative 08/15/18 19:15 Drugs of Abuse Note Disclamer 08/15/18 19:15 C. difficile Toxin A&B Negative (Negative) 08/19/18 14:00 HIV 1&2 Antibody Rapid Non react (Non React) 08/18/18 13:39 HIV P24 Antigen Non react (Non React) 08/18/18 13:39 Active Medications - Current Medications Current Medications: Generic Name Dose Route Start Last Admin Trade Name Freq PRN Reason Stop Dose Admin Acetaminophen 650 mg 08/15/18 22:12 08/21/18 03:53 Tylenol PO 650 mg Q4H PRN Administration Pain MILD(1-3)/Fever >100.5/MONDRAGON Acetaminophen 650 mg 08/16/18 17:01 08/16/18 17:11 Tylenol CO 650 mg Q4H PRN Administration Pain, Mild (1-3) Albuterol 2.5 mg 08/17/18 17:00 Proventil IH Q3HRT PRN Shortness Of Breath Albuterol/Ipratropium 1 ampul 08/20/18 14:00 08/22/18 07:28 Duoneb *Not For Prn Use* IH Not Given Q6HRT LAMAR Lipase/Protease/Amylase 1 each 08/17/18 15:55 Pancresam Elizabeth 10,500 Unit FEEDTUBE PRN PRN For Clogged Feeding Tube Arformoterol Tartrate 15 mcg 08/18/18 20:00 08/22/18 07:28 Brovana Nebu IH 15 mcg Q12HRT LAMAR Administration Budesonide 0.5 mg 08/18/18 20:00 08/22/18 07:28 Pulmicort IH 0.5 mg Q12HRT LAMAR Administration Carvedilol 6.25 mg 08/15/18 22:45 08/21/18 23:25 Coreg PO 6.25 mg BID LAMAR Administration Duloxetine HCl 60 mg 08/16/18 10:00 08/21/18 09:33 Cymbalta PO Not Given QDAY LAMAR Enoxaparin Sodium 30 mg 08/21/18 22:00 08/21/18 23:25 Lovenox SUB-Q 30 mg QDAY@2200 LAMAR Administration Famotidine 20 mg 08/21/18 10:00 08/21/18 09:30 Pepcid PO 20 mg DAILY [facility] Administration Fentanyl 50 mcg 08/15/18 21:55 08/17/18 13:36 Sublimaze IV 50 mcg Q10MIN PRN Administration ANALGESIA Hydralazine HCl 10 mg 08/19/18 13:59 08/19/18 15:06 Apresoline IV 10 mg Q3H PRN Administration SBP > 160, DBP > 100 Hydrophilic Ointment 1 applic 08/15/18 21:55 Vaseline Lip Therapy TP Q2HR PRN Dry Lips Fentanyl Citrate 2,000 mcg in 100 mls @ 4.082 mls/hr 08/15/18 22:00 08/22/18 06:46 Fentanyl Drip Premix IV 4 mcg/kg/hr TITR LAMAR 16.329 mls/hr Administration Protocol 1 MCG/KG/HR Propofol 1,000 mg in 100 mls @ 2.449 mls/hr 08/15/18 21:15 08/22/18 07:04 Diprivan 10 Mg/Ml IV 10 mcg/kg/min TITR LAMAR 4.899 mls/hr Administration Protocol 5 MCG/KG/MIN Norepinephrine 4 mg in 250 mls @ 7.5 mls/hr 08/17/18 20:00 08/22/18 06:00 Levophed Drip 4 Mg/Ns 250 Ml IV 0 mcg/min TITR LAMAR 0 mls/hr Titration Protocol 2 MCG/MIN Metronidazole 500 mg in 100 mls @ 100 mls/hr 08/19/18 14:00 08/21/18 23:27 Flagyl 500 Mg/100 Ml IV 100 mls/hr Q8HR LAMAR Administration Protocol Ceftriaxone Sodium 2 gm in 100 mls @ 200 mls/hr 08/20/18 10:00 08/21/18 11:07 Rocephin/Ns 2 Gm/100 Ml IV Infused Q24HR LAMAR Infusion Protocol Micafungin Sodium 100 mg/ 100 mls @ 100 mls/hr 08/20/18 18:00 08/21/18 11:06 Sodium Chloride IV Infused QDAY LAMAR Infusion Protocol Metoclopramide HCl 5 mg 08/15/18 22:50 Reglan IV Q6H PRN Nausea And Vomiting Ondansetron HCl 4 mg 08/15/18 22:12 Zofran IV Q8H PRN Nausea And Vomiting Quetiapine Fumarate 100 mg 08/20/18 22:00 08/21/18 23:26 Seroquel PO 100 mg QHS LAMAR Administration Simple Syrup 15 ml 08/17/18 15:55 Simple Syrup FEEDTUBE PRN PRN Hypoglycemia Simple Syrup 30 ml 08/17/18 15:55 Simple Syrup FEEDTUBE PRN PRN Hypoglycemia Sodium Bicarbonate 325 mg 08/17/18 15:55 Sodium Bicarbonate FEEDTUBE PRN PRN For Clogged Feeding Tube Sodium Chloride 10 ml 08/16/18 10:00 08/21/18 23:29 Sodium Chloride Flush Syringe 10 Ml IV 10 ml BID LAMAR Administration Sodium Chloride 10 ml 08/15/18 22:12 08/18/18 21:52 Sodium Chloride Flush Syringe 10 Ml IV 10 ml PRN PRN Administration LINE FLUSH Nutrition/Malnutrition Assess - Dietary Evaluation Nutrition/Malnutrition Findings: Nutrition Notes Start: 08/17/18 13:57 Freq: Status: Active Protocol: Document 08/19/18 12:05 RD (Rec: 03/22/19 13:19 RD [email or web address]) Co-Sign 08/19/18 12:05 OL Nutrition Notes Initial or Follow up Reassessment Current Diagnosis Acute Kidney Injury,COPD, Diabetes,Sepsis,Hypertension, Respiratory Failure, Hyperlipidemia Other Pertinent Diagnosis AMS, hypokalemia, NSTEMI, encephalopathy, pneu, hypernatermia, shock liver Current Diet Vital AF 1.2 at 60mL/hr Labs/Tests Na 154 K 3.3 Cl 115 BUN 19 Pertinent Medications Propofol Height 5 ft 7 in Weight 84.6 kg [place] Body Weight (kg) 61.36 BMI 29.2 Subjective/Other Information Per RN, pt tolerating TF well. TF running at goal rate. #1 Nutrition Diagnosis Inadequate oral intake Diagnosis Progress(for reassessment Continues documentation) Is patient on ventilator? Yes Is Patient Ambulatory and/or Out of Bed No [facility]EE[facility]) [phone] Calculation Used for Recommendations [facility] Additional Notes Protein needs: (1.2-2g/kg) 97- 162g/day Fluid needs: 1ml/kcal Nutrition Intervention Change Diet Order: TF Nutrition Support: Vital AF 1.2 at 60mL/hr with 150mL flush q4h. Kcal 1,728 Protein (gm) 108 Fluid (mL) 1,168 Goal #1 Tolerate TF Goal #2 Meet at least 75% of nutrient needs via TF Anticipated Discharge Needs: Unable to determine at this time Follow-Up By: 08/24/18 Additional Comments f/u: stable TF, Na labs
--- NOTE | 2018-08-22 11:03 | Progress Note ---
Assessment and Plan Cultures: 08/15/2018 blood culture: One set positive for yeast 08/15/2018 sputum culture: MSSA and Escherichia coli, wade susceptible 08/18/2018 blood culture: no growth today 08/18/2018 urine culture: neg A/P: 68-year-old female with COPD, arthritis, history of multiple spinal surgeries was brought to the emergency room on 08/15/2018 with altered mental status: 1) Sepsis: Noted persistent high fever and worsening WBC. Etio is unclear. Likely fungemia however it is not responding to 2 day-course of initial fluconazole and then 3 day-course micafungin. 2) Fungemia: Blood cultures done on admission growing yeast in one set (per micro it does not look like Camryn or Crypto). Etiology is unclear. Patient without any history of indwelling PICC line, TPN or immunocompromised status. reporting severe explosive diarrhea, N/V before admission after taken 4 days of amoxicillin for dental implant. -s/p fluconazole 800 mg loading dose -serum Crypto negative. -08/15/2018 blood culture: One set positive for yeast (spoke with micro it does not look like Camryn or Crypto) -08/18/2018 blood culture: no growth today -CTA chest showed limited study due to respiratory motion artifact. No evidence of pulmonary embolism. Abnormal bilateral lung consolidation which may represent pulmonary edema or pneumonia. Mild cardiomegaly. Indeterminant mediastinal lymph nodes. -CT abdomen showed extensive bilateral lower lobe pulmonary infiltrates, rectal tube and Dodge catheter noted. NG tube at gastric antrum. Left hip prosthesis Extensive degenerative changes noted lumbar spine -TTE EF 25-30% no vegetations -HIV neg 3) Acute renal failure: On admission: Creatinine worsening. Nephrology following . 4) Transaminitis: Likely from shock liver. Better. 5) Bilateral pneumonia: DDx aspiration pneumonia v/s CAP. Causing acute respiratory failure. Chest x-ray shows reticular nodular infiltrates, some of these appear to be chronic and would also present in 2011. CTA chest showed limited study due to respiratory motion artifact. No evidence of pulmonary embolism. Abnormal bilateral lung consolidation which may represent pulmonary edema or pneumonia. Mild cardiomegaly. Indeterminant mediastinal lymph nodes. -Sputum culture 08/15 MSSA and Escherichia coli, wade susceptible 6) Right maxillary sinusitis 7) Acute encephalopathy: Likely multifactorial. CT head unremarkable for acute intracranial process. currently sedated. 8) Recent diarrhea after antibiotics. C diff negative. Reviewed CT abdomen with Dr Stoddard and no evidence of diverticulitis, colitis or abscess Recs: Stop contact isolation C diff was negative Stop ceftriaxone and flagyl IV - Reviewed CT abdomen with Dr Stoddard and no evidence of diverticulitis, colitis or abscess Start cefazolin IV renally adjusted to cover MSSA and Escherichia coli Stop micafungin Start amphothericin renally adjusted f/u Repeat blood cultures ordered f/u blood culture ID and sensitivity Of note, the RIJ central line will need removal at some point since it was placed during active fungemia Guarded prognosis discussed with rolf Alvarez MD Infectious Diseases [facility] M [phone] O [phone] Subjective Date of service: 08/22/18 Principal diagnosis: Acute hypoxemic hypercapnic Resp failure; AE-COPD; Acute kidney injury Interval history: Remains intubated fiO2 50%, p 8, on sedative, no pressors, tmax 102.9 ROS: unable to obtain Objective - Exam Narrative Exam: Constitutional: sedated, SOB, intubated fiO2 50%, p8 Head, Ears, Nose: Normocephalic, atraumatic. External ears, nose normal Eyes: Conjunctivae/corneas clear. No icterus. No ptosis. Neck: Supple, no meningeal signs Oral: +ETT Cardiovascular: irreg Respiratory: gonzalez loud rhonchi GI: Soft, non-tender; bowel sounds normal. No peritoneal signs Musculoskeletal: No pedal edema, no cyanosis. Skin: No rash or abscess Hem/Lymphatic: No palpable cervical or supraclavicular nodes. No lymphangitis Psych: no agitation Neurological: sedated, intubated, on vent Rectal tube with diarrhea - Constitutional Vitals: Vital Signs Temp Pulse Resp BP Pulse Ox 102.9 F H 97 H 40 H 150/71 93 08/22/18 08:00 08/22/18 10:41 08/22/18 08:00 08/22/18 10:41 08/22/18 08:00 Temperature -Last 24 Hours Temperature 102.9 F Temperature 102.9 F Temperature 102.6 F Temperature 100.7 F Temperature 100.0 F Temperature 100.0 F - Labs CBC & Chem 7: 08/21/18 05:45 08/22/18 06:45 Labs: Abnormal lab results 08/22/18 08/22/18 08/22/18 Range/Units 06:20 06:45 06:45 POC ABG pCO2 32.9 L (35-45) Chloride 112.4 H (98-107) mmol/L Carbon Dioxide 20 L (22-30) mmol/L BUN 61 H (7-17) mg/dL Creatinine 1.9 H (0.7-1.2) mg/dL Glucose 154 H (65-100) mg/dL Calcium 7.8 L (8.4-10.2) mg/dL Triglycerides 197 H (2-149) mg/dL
--- NOTE | 2018-08-22 11:06 | Progress Note ---
Assessment and Plan Acute hypoxic-hypercapnic respiratory failure on MVS Acute COPD exacerbation NSTEMI Acute encephalopathy (toxic-metabolic) Thrombocytopenia Hypokalemia Acute kidney injury h/o Chronic Narcotic Dependence Aspiration pneumonia/CAP Hypokalemia GNR in tracheal aspirate Hypernatremia (Prior CXR's suggest chronic/structural lung disease and etiology of fungemia unclear) - wean levophed for MAP > 65 mmHg - increase seroquel to 200 mg bid (suspect possible element of opiate withdrawal slowly creeping in) - stop lovenox and send HIT assay re: acute thrombocytopenia - reduce IVNS rate to 50 mls/hr re: CHF - to begin amphotericin for fungemia - nephrology consult initiated re: CHANDANA in setting of IV contrast and now requiring amphotericin - prn triglyceride levels re: propofol infusion - continue free water for hyperkalemia - cardiology consulted for CHF - follow CD4 count +/- HIV serologies - continue antiinfectives per ID rec's - continue brovana & pulmicort re: COPD - Continue to Wean supplemental oxygen to keep O2 sats 88-90% (restrictive Oxygen strategies acutely) - continue lung protective strategies - Daily ABGs/CXR for now - VAP bundle addressed - Avoid benzodiazepines, use high dose fentanyl for agitation and analgesia - Daily SAT's & SBT's assessment - Sedation target for RASS 0 to -1 - Stress ulcer prophylaxis - VTE prophylaxis - enteral Nutrition as tolerated - VAP bundle addressed - Free water flushes for hypernatremia - continue accuchecks with glycemic control per SSI for Target glucose of 140- 180 mg/dL - Continue bronchodilators with pulmonary hygiene per RT - Maintenance of sleep -wake cycle - Mobility protocol for pressure ulcer prophylaxis as tolerated by hemodynamics - Influenza and pneumonia vaccination per protocol ..care plan discussed at length with family at the bedside ... re-evaluate in am & prn PROGNOSIS :FAIR CONDITION: CRITICAL CODE STATUS: FULL CODE The high probability of a clinically significant, sudden or life-threatening deterioration of the [respiratory, neurology, renal] system(s) required my full and direct attention, intervention and personal management. The aggregate critical care time was [38] minutes without overlap. Time includes spent on; [x] Data Review and interpretation [x] Patient assessment and monitoring of vital signs [x] Documentation [x] Medication orders and management Subjective Date of service: 08/22/18 Principal diagnosis: Acute hypoxemic hypercapnic Resp failure; AE-COPD; Acute kidney injury Interval history: Patient is seen today for: Acute hypoxemic - hypercapnic respiratory failure on MVS; Acute COPD exacerbation; Acute encephalopathy (toxic-metabolic); Hypokalemia; Acute kidney injury Seen and examined at bedside; 24hour events reviewed; nursing and respiratory care staff consulted; no adverse overnight events reported to me; resting peacefully in bed; and son visiting; very agitated during sedation vacations; no seizures; no emesis or overt aspiration but high grade fever up to 104F; also requiring levophed intermittently Objective Vital Signs - 12hr 08/21/18 08/21/18 08/21/18 23:10 23:25 23:30 Temperature Pulse Rate 100 H 102 H 101 H Pulse Rate [ Anterior Bilateral Throughout] Pulse Rate [ Right Dorsalis Pedis] Respiratory 38 H Rate Respiratory Rate [Anterior Bilateral Throughout] Blood Pressure 158/74 153/78 161/84 O2 Sat by Pulse 95 94 Oximetry 08/22/18 08/22/18 08/22/18 00:00 00:30 01:00 Temperature 102.6 F H Pulse Rate 96 H 92 H 96 H Pulse Rate [ Anterior Bilateral Throughout] Pulse Rate [ 96 H Right Dorsalis Pedis] Respiratory 38 H 35 H 35 H Rate Respiratory Rate [Anterior Bilateral Throughout] Blood Pressure 118/59 69/48 102/52 O2 Sat by Pulse 94 94 95 Oximetry 08/22/18 08/22/18 08/22/18 01:30 02:00 02:30 Temperature Pulse Rate 85 87 87 Pulse Rate [ Anterior Bilateral Throughout] Pulse Rate [ Right Dorsalis Pedis] Respiratory 35 H 35 H 35 H Rate Respiratory Rate [Anterior Bilateral Throughout] Blood Pressure 109/55 122/58 134/62 O2 Sat by Pulse 95 94 94 Oximetry 08/22/18 08/22/18 08/22/18 03:00 03:09 03:30 Temperature Pulse Rate 90 93 H Pulse Rate [ 89 Anterior Bilateral Throughout] Pulse Rate [ 96 H Right Dorsalis Pedis] Respiratory 35 H 29 H Rate Respiratory 32 H Rate [Anterior Bilateral Throughout] Blood Pressure 120/58 125/60 O2 Sat by Pulse 95 96 Oximetry 08/22/18 08/22/18 08/22/18 04:00 04:30 05:00 Temperature 102.9 F H Pulse Rate 99 H 91 H 88 Pulse Rate [ Anterior Bilateral Throughout] Pulse Rate [ 96 H Right Dorsalis Pedis] Respiratory 28 H 29 H 30 H Rate Respiratory Rate [Anterior Bilateral Throughout] Blood Pressure 127/66 111/62 115/60 O2 Sat by Pulse 96 97 96 Oximetry 08/22/18 08/22/18 08/22/18 05:30 06:00 06:30 Temperature Pulse Rate 90 86 100 H Pulse Rate [ Anterior Bilateral Throughout] Pulse Rate [ Right Dorsalis Pedis] Respiratory 33 H 37 H 44 H Rate Respiratory Rate [Anterior Bilateral Throughout] Blood Pressure 124/61 139/62 144/76 O2 Sat by Pulse 95 94 91 Oximetry 08/22/18 08/22/18 08/22/18 07:00 07:24 07:28 Temperature Pulse Rate 100 H 97 H Pulse Rate [ 98 H Anterior Bilateral Throughout] Pulse Rate [ Right Dorsalis Pedis] Respiratory 42 H Rate Respiratory 40 H Rate [Anterior Bilateral Throughout] Blood Pressure 152/74 150/69 O2 Sat by Pulse 93 98 Oximetry 08/22/18 08/22/18 08/22/18 07:30 07:35 08:00 Temperature 102.9 F H Pulse Rate 99 H 98 H Pulse Rate [ 100 H Anterior Bilateral Throughout] Pulse Rate [ Right Dorsalis Pedis] Respiratory 37 H 40 H Rate Respiratory 34 H Rate [Anterior Bilateral Throughout] Blood Pressure 139/73 147/73 O2 Sat by Pulse 95 93 Oximetry 08/22/18 10:41 Temperature Pulse Rate 97 H Pulse Rate [ Anterior Bilateral Throughout] Pulse Rate [ Right Dorsalis Pedis] Respiratory Rate Respiratory Rate [Anterior Bilateral Throughout] Blood Pressure 150/71 O2 Sat by Pulse Oximetry Constitutional: appears uncomfortable, other (elderly looking CF, normocephalic and atraumatic) Eyes: non-icteric ENT: oropharynx moist, other (ETT 23 cm MARTHA) Neck: supple, no lymphadenopathy, no JVD, other (no thyromegaly) Effort: mildly labored Ascultation: Bilateral: diminished breath sounds, rales Percussion: Bilateral: not dull Cardiovascular: regular rate and rhythm Gastrointestinal: normoactive bowel sounds, soft, non-tender, non-distended Integumentary: normal Extremities: no cyanosis, no edema, no ischemia or petechiae Neurologic: non-focal exam (grossly), unable to assess (encephalopathic) Psychiatric: other (unable to assess) CBC and BMP: 08/21/18 05:45 08/22/18 06:45 ABG, PT/INR, D-dimer: ABG POC ABG pH 7.360 (7.35-7.45) 08/22/18 06:20 POC ABG pCO2 32.9 (35-45) L 08/22/18 06:20 POC ABG pO2 94 (80-105) 08/22/18 06:20 POC ABG HCO3 18.6 (22-26 mml/L) 08/22/18 06:20 POC ABG Total CO2 20 (23-27mmol/L) 08/22/18 06:20 POC ABG O2 Sat 97 08/22/18 06:20 PT/INR, D-dimer D-Dimer 2768.33 ng/mlDDU (0-234) H 08/15/18 18:31 Abnormal lab findings: Abnormal Labs 08/15/18 08/15/18 08/15/18 17:52 17:52 17:52 WBC 12.7 H RBC 3.25 L Hgb Hct RDW Plt Count Seg Neuts % (Manual) Lymphocytes % (Manual) 6.0 L Nucleated RBC % Seg Neutrophils # Man Lymphocytes # (Manual) 0.8 L D-Dimer POC ABG pH POC ABG pCO2 POC ABG pO2 VBG pH Sodium Potassium 3.4 L Chloride 94.6 L Carbon Dioxide 17 L BUN 67 H Creatinine 3.5 H Glucose 131 H Hemoglobin A1c Lactic Acid 5.20 H* Calcium 7.6 L Phosphorus AST 887 H ALT 316 H Troponin T C-Reactive Protein Total Protein Albumin 3.1 L Triglycerides LDL Cholesterol Direct HDL Cholesterol Urine WBC (Auto) Salicylates Acetaminophen 08/15/18 08/15/18 08/15/18 18:11 18:19 18:31 WBC RBC Hgb Hct RDW Plt Count Seg Neuts % (Manual) Lymphocytes % (Manual) Nucleated RBC % Seg Neutrophils # Man Lymphocytes # (Manual) D-Dimer 2768.33 H POC ABG pH 7.173 L POC ABG pCO2 47.8 H POC ABG pO2 177 H VBG pH 7.187 L* Sodium Potassium Chloride Carbon Dioxide BUN Creatinine Glucose Hemoglobin A1c Lactic Acid Calcium Phosphorus AST ALT Troponin T C-Reactive Protein Total Protein Albumin Triglycerides LDL Cholesterol Direct HDL Cholesterol Urine WBC (Auto) Salicylates Acetaminophen 08/15/18 08/15/18 08/15/18 18:31 19:14 19:14 WBC RBC Hgb Hct RDW Plt Count Seg Neuts % (Manual) Lymphocytes % (Manual) Nucleated RBC % Seg Neutrophils # Man Lymphocytes # (Manual) D-Dimer POC ABG pH POC ABG pCO2 POC ABG pO2 VBG pH Sodium Potassium Chloride Carbon Dioxide BUN Creatinine Glucose Hemoglobin A1c Lactic Acid 2.70 H* Calcium Phosphorus AST ALT Troponin T 0.454 H* C-Reactive Protein Total Protein Albumin Triglycerides 356 H LDL Cholesterol Direct 4 L HDL Cholesterol 10 L Urine WBC (Auto) Salicylates < 0.3 L Acetaminophen 08/15/18 08/15/18 08/15/18 19:14 19:15 23:09 WBC RBC Hgb Hct RDW Plt Count Seg Neuts % (Manual) Lymphocytes % (Manual) Nucleated RBC % Seg Neutrophils # Man Lymphocytes # (Manual) D-Dimer POC ABG pH POC ABG pCO2 POC ABG pO2 VBG pH Sodium Potassium Chloride Carbon Dioxide BUN Creatinine Glucose Hemoglobin A1c Lactic Acid 3.20 H* Calcium Phosphorus AST ALT Troponin T C-Reactive Protein Total Protein Albumin Triglycerides LDL Cholesterol Direct HDL Cholesterol Urine WBC (Auto) 17.0 H Salicylates Acetaminophen < 5.0 L 08/15/18 08/16/18 08/16/18 23:09 01:41 05:38 WBC RBC 3.07 L Hgb 9.8 L Hct 28.7 L RDW Plt Count Seg Neuts % (Manual) 84.0 H Lymphocytes % (Manual) 6.0 L Nucleated RBC % 4.0 H Seg Neutrophils # Man Lymphocytes # (Manual) 0.5 L D-Dimer POC ABG pH 7.323 L POC ABG pCO2 34.7 L POC ABG pO2 78 L VBG pH Sodium Potassium Chloride Carbon Dioxide BUN Creatinine Glucose Hemoglobin A1c 6.4 H Lactic Acid Calcium Phosphorus AST ALT Troponin T C-Reactive Protein Total Protein Albumin Triglycerides LDL Cholesterol Direct HDL Cholesterol Urine WBC (Auto) Salicylates Acetaminophen 08/16/18 08/16/18 08/17/18 05:38 22:43 03:42 WBC RBC Hgb Hct RDW Plt Count Seg Neuts % (Manual) Lymphocytes % (Manual) Nucleated RBC % Seg Neutrophils # Man Lymphocytes # (Manual) D-Dimer POC ABG pH POC ABG pCO2 POC ABG pO2 VBG pH Sodium Potassium 2.9 L* 3.1 L 2.9 L* Chloride 108.8 H 111.9 H Carbon Dioxide 17 L 19 L 21 L BUN 62 H 40 H 33 H Creatinine 2.0 H Glucose 139 H 145 H Hemoglobin A1c Lactic Acid Calcium 7.8 L 8.3 L Phosphorus 1.50 L AST 619 H ALT 353 H Troponin T C-Reactive Protein Total Protein 6.1 L Albumin 2.8 L Triglycerides LDL Cholesterol Direct HDL Cholesterol Urine WBC (Auto) Salicylates Acetaminophen 08/17/18 08/17/18 08/18/18 11:02 16:42 03:28 WBC RBC Hgb Hct RDW Plt Count Seg Neuts % (Manual) Lymphocytes % (Manual) Nucleated RBC % Seg Neutrophils # Man Lymphocytes # (Manual) D-Dimer POC ABG pH 7.483 H 7.499 H POC ABG pCO2 POC ABG pO2 VBG pH Sodium 147 H Potassium 3.2 L Chloride 115.8 H Carbon Dioxide BUN 23 H Creatinine Glucose 121 H Hemoglobin A1c Lactic Acid Calcium 8.1 L Phosphorus 2.30 L D AST ALT Troponin T C-Reactive Protein Total Protein Albumin Triglycerides LDL Cholesterol Direct HDL Cholesterol Urine WBC (Auto) Salicylates Acetaminophen 08/18/18 08/18/18 08/18/18 04:10 13:39 13:39 WBC RBC Hgb Hct RDW Plt Count Seg Neuts % (Manual) Lymphocytes % (Manual) Nucleated RBC % Seg Neutrophils # Man Lymphocytes # (Manual) D-Dimer POC ABG pH POC ABG pCO2 POC ABG pO2 VBG pH Sodium 147 H Potassium 3.3 L Chloride 111.9 H Carbon Dioxide BUN 21 H Creatinine Glucose 113 H Hemoglobin A1c Lactic Acid Calcium Phosphorus 1.50 L D AST ALT Troponin T 0.317 H* D C-Reactive Protein 10.70 H Total Protein Albumin Triglycerides LDL Cholesterol Direct HDL Cholesterol Urine WBC (Auto) Salicylates Acetaminophen 08/18/18 08/19/18 08/19/18 16:51 03:47 04:15 WBC RBC Hgb Hct RDW Plt Count Seg Neuts % (Manual) Lymphocytes % (Manual) Nucleated RBC % Seg Neutrophils # Man Lymphocytes # (Manual) D-Dimer POC ABG pH 7.454 H 7.482 H POC ABG pCO2 POC ABG pO2 65 L VBG pH Sodium 154 H Potassium 3.3 L Chloride 115.1 H Carbon Dioxide BUN 19 H Creatinine Glucose 117 H Hemoglobin A1c Lactic Acid Calcium 7.8 L Phosphorus AST ALT Troponin T C-Reactive Protein Total Protein Albumin Triglycerides LDL Cholesterol Direct HDL Cholesterol Urine WBC (Auto) Salicylates Acetaminophen 08/19/18 08/20/18 08/20/18 16:18 03:51 05:25 WBC RBC Hgb Hct RDW Plt Count Seg Neuts % (Manual) Lymphocytes % (Manual) Nucleated RBC % Seg Neutrophils # Man Lymphocytes # (Manual) D-Dimer POC ABG pH 7.483 H POC ABG pCO2 33.4 L POC ABG pO2 51 L 74 L VBG pH Sodium 146 H D Potassium Chloride 111.2 H Carbon Dioxide BUN 24 H Creatinine Glucose 141 H Hemoglobin A1c Lactic Acid Calcium 8.1 L Phosphorus AST 65 H ALT 104 H Troponin T C-Reactive Protein Total Protein 6.2 L Albumin 2.6 L Triglycerides LDL Cholesterol Direct HDL Cholesterol Urine WBC (Auto) Salicylates Acetaminophen 08/21/18 08/21/18 08/21/18 03:54 05:45 05:45 WBC 24.1 H RBC 2.83 L Hgb 8.8 L Hct 26.7 L RDW 15.7 H Plt Count 127 L Seg Neuts % (Manual) 94.0 H Lymphocytes % (Manual) 4.0 L Nucleated RBC % 1.0 H Seg Neutrophils # Man 22.7 H Lymphocytes # (Manual) 1.0 L D-Dimer POC ABG pH POC ABG pCO2 31.9 L POC ABG pO2 66 L VBG pH Sodium Potassium 3.5 L Chloride 109.4 H Carbon Dioxide 21 L BUN 50 H Creatinine 2.0 H D Glucose 144 H Hemoglobin A1c Lactic Acid Calcium 7.6 L Phosphorus AST ALT Troponin T C-Reactive Protein Total Protein 5.3 L Albumin 2.1 L Triglycerides LDL Cholesterol Direct HDL Cholesterol Urine WBC (Auto) Salicylates Acetaminophen 08/22/18 08/22/18 08/22/18 06:20 06:45 06:45 WBC RBC Hgb Hct RDW Plt Count Seg Neuts % (Manual) Lymphocytes % (Manual) Nucleated RBC % Seg Neutrophils # Man Lymphocytes # (Manual) D-Dimer POC ABG pH POC ABG pCO2 32.9 L POC ABG pO2 VBG pH Sodium Potassium Chloride 112.4 H Carbon Dioxide 20 L BUN 61 H Creatinine 1.9 H Glucose 154 H Hemoglobin A1c Lactic Acid Calcium 7.8 L Phosphorus AST ALT Troponin T C-Reactive Protein Total Protein Albumin Triglycerides 197 H LDL Cholesterol Direct HDL Cholesterol Urine WBC (Auto) Salicylates Acetaminophen Chest x-ray: pending Allied health notes reviewed: nursing
--- NOTE | 2018-08-22 12:30 | Progress Note ---
Assessment and Plan Severe sepsis Blood cultures 08/15 - yeast Sputum culture 08/15 - E.coli and Staph aureus Acute renal failure on admission - resolved Acute respiratory failure - intubated and mechanically ventilated Lactic acidosis on admission - resolved Acute transaminitis on admission Hypernatremia Altered mental status History of COPD New onset cardiomyopathy, LVEF 25-30% this admission Previous echo 03/30/2016 at [facility] revealed normal LVEF Previous stress MPI 03/29/2016 at [facility] revealed no ischemia Abnormal ECG showing LBBB, chronic Recent EGD at [facility] 08/08/2018 revealing irregular Z line, gastritis and small histal hernia Recent colonoscopy at [facility] 08/08/2018 revealing sigmoid polyp, transverse colon polyps, inflamed hemorrhoids and diverticulosis Recommend: Medical therapy for new onset cardiomyopathy when blood pressure allows. Subjective Date of service: 08/22/18 Principal diagnosis: Acute hypoxemic hypercapnic Resp failure; AE-COPD; Acute kidney injury Interval history: Patient remains sedated and intubated on the vent. On pressors for support. Objective Vital Signs Temp Pulse Pulse Pulse Resp Resp BP 08/22/18 11:58 77 124/60 08/22/18 10:41 97 H 150/71 08/22/18 08:00 102.9 F H 98 H 40 H 147/73 08/22/18 07:35 100 H 34 H 08/22/18 07:30 99 H 37 H 139/73 08/22/18 07:28 98 H 40 H 08/22/18 07:24 97 H 150/69 08/22/18 07:00 100 H 42 H 152/74 08/22/18 06:30 100 H 44 H 144/76 08/22/18 06:00 86 37 H 139/62 08/22/18 05:30 90 33 H 124/61 08/22/18 05:00 88 30 H 115/60 08/22/18 04:30 91 H 29 H 111/62 08/22/18 04:00 102.9 F H 99 H 96 H 28 H 127/66 08/22/18 03:30 93 H 29 H 125/60 08/22/18 03:09 89 32 H 08/22/18 03:00 90 96 H 35 H 120/58 08/22/18 02:30 87 35 H 134/62 08/22/18 02:00 87 35 H 122/58 08/22/18 01:30 85 35 H 109/55 08/22/18 01:00 96 H 35 H 102/52 08/22/18 00:30 92 H 35 H 69/48 08/22/18 00:00 102.6 F H 96 H 96 H 38 H 118/59 08/21/18 23:30 101 H 38 H 161/84 08/21/18 23:25 102 H 153/78 08/21/18 23:10 100 H 158/74 08/21/18 23:00 99 H 37 H 158/74 08/21/18 22:30 100 H 38 H 156/75 08/21/18 22:00 101 H 100 H 39 H 160/73 08/21/18 21:30 103 H 38 H 153/78 08/21/18 21:00 99 H 38 H 169/79 08/21/18 20:30 99 H 38 H 162/76 08/21/18 20:20 101 H 39 H 172/81 08/21/18 20:00 100.7 F H 100 H 100 H 39 H 147/77 08/21/18 19:39 86 32 H 08/21/18 19:31 95 H 167/78 08/21/18 19:30 96 H 43 H 167/78 08/21/18 19:00 92 H 39 H 181/97 08/21/18 18:30 91 H 41 H 157/82 08/21/18 18:00 88 39 H 151/76 08/21/18 17:30 97 H 43 H 151/76 08/21/18 17:00 84 35 H 143/82 08/21/18 16:30 84 31 H 153/83 08/21/18 16:22 84 27 H 08/21/18 16:15 82 34 H 08/21/18 16:13 81 142/68 08/21/18 16:00 100.0 F H 81 82 37 H 142/68 08/21/18 15:30 81 35 H 146/73 08/21/18 15:00 77 32 H 144/60 08/21/18 14:30 91 H 38 H 133/74 08/21/18 14:00 78 33 H 132/64 08/21/18 13:30 77 33 H 127/72 08/21/18 13:00 76 31 H 121/61 08/21/18 12:30 76 32 H 117/59 Pulse Ox 08/22/18 11:58 98 08/22/18 10:41 08/22/18 08:00 93 08/22/18 07:35 08/22/18 07:30 95 08/22/18 07:28 08/22/18 07:24 98 08/22/18 07:00 93 08/22/18 06:30 91 08/22/18 06:00 94 08/22/18 05:30 95 08/22/18 05:00 96 08/22/18 04:30 97 08/22/18 04:00 96 08/22/18 03:30 96 08/22/18 03:09 08/22/18 03:00 95 08/22/18 02:30 94 08/22/18 02:00 94 08/22/18 01:30 95 08/22/18 01:00 95 08/22/18 00:30 94 08/22/18 00:00 94 08/21/18 23:30 94 08/21/18 23:25 08/21/18 23:10 95 08/21/18 23:00 92 08/21/18 22:30 92 08/21/18 22:00 94 08/21/18 21:30 92 08/21/18 21:00 91 08/21/18 20:30 92 08/21/18 20:20 94 08/21/18 20:00 95 08/21/18 19:39 08/21/18 19:31 94 08/21/18 19:30 91 08/21/18 19:00 92 08/21/18 18:30 92 08/21/18 18:00 95 08/21/18 17:30 96 08/21/18 17:00 93 08/21/18 16:30 94 08/21/18 16:22 08/21/18 16:15 08/21/18 16:13 96 08/21/18 16:00 94 08/21/18 15:30 94 08/21/18 15:00 94 08/21/18 14:30 90 08/21/18 14:00 93 08/21/18 13:30 93 08/21/18 13:00 94 08/21/18 12:30 94 - Physical Examination General: Other (intubated and sedated) Cardiac: Positive: Reg Rate and Rhythm - Labs and Meds Lipids 08/22/18 Range/Units 06:45 Triglycerides 197 H (2-149) mg/dL Comprehensive Metabolic Panel 08/22/18 Range/Units 06:45 Sodium 145 (137-145) mmol/L Potassium 4.2 (3.6-5.0) mmol/L Chloride 112.4 H (98-107) mmol/L Carbon Dioxide 20 L (22-30) mmol/L BUN 61 H (7-17) mg/dL Creatinine 1.9 H (0.7-1.2) mg/dL Glucose 154 H (65-100) mg/dL Calcium 7.8 L (8.4-10.2) mg/dL - Allied health notes Allied health notes reviewed: nursing
[2018-08-22] MEDS: ABELCET IV SCH (12:43)
[2018-08-22] MEDS: D5W IV SCH (12:43)
[2018-08-22] MEDS: BENADRYL IV SCH (12:46)
[2018-08-22] MEDS: ceFAZolin 2 GM in NACL 0.9% 100 ML IV SCH (14:38)
[2018-08-22] MEDS: TYLENOL PO PRN (16:37)
[2018-08-23] MEDS: fentaNYL DRIP Premix 2,000 MCG/100 ML BAG IV SCH ×4 (00:27→22:17)
[2018-08-23] MEDS: SODIUM CHLORIDE FLUSH SYRINGE 10 ML IV SCH ×3 (00:29→22:23)
[2018-08-23] MEDS: COREG PO SCH ×3 (00:33→22:17)
[2018-08-23] MEDS: ceFAZolin 2 GM in NACL 0.9% 100 ML IV SCH ×3 (00:35→22:24)
[2018-08-23] MEDS: DIPRIVAN 10 MG/ML 1,000 MG/100 ML BOTTLE IV SCH (01:49)
[2018-08-23] MEDS: DUONEB *Not for PRN Use IH SCH ×4 (01:54→19:59)
[2018-08-23 06:22] LABS: Hematocrit 21.7 % (30.3-42.9); Hemoglobin 7.1 gm/dl (10.1-14.3); Mean Corpuscular HGB Conc 33 % (30-34); Mean Corpuscular Volume 95 fl (79-97); Platelet Count 106 K/mm3 (140-440); Red Blood Count 2.29 M/mm3 (3.65-5.03); Red Cell Distribution Width 15.7 % (13.2-15.2)
[2018-08-23 06:36] LABS: Calcium 7.5 mg/dL (8.4-10.2)
[2018-08-23] MEDS: PULMICORT IH SCH ×2 (07:44→19:59)
[2018-08-23] MEDS: BROVANA NEBU IH SCH ×2 (07:45→19:59)
[2018-08-23 08:25] LABS: Anisocytosis 1+; Basophils % (Manual) 0 % (0.0-1.8); Eosinophils % (Manual) 0 % (0.0-4.3); Platelet Estimate Cons; Total Cells Counted 100
--- NOTE | 2018-08-23 09:18 | Progress Note ---
Assessment and Plan 1. Acute kidney injury: Recurrent vasomotor CHANDANA. Recent increase in the creatinine is likely due to sepsis / hypotension. Creatinine leveled off. Monitor renal function. Renal prognosis is guarded. Avoid nephrotoxic agents. Meds dosage based on GFR. 2. FEN: Hypokalemia, monitor and replete. Hypernatremia, improved. Metabolic acidosis, monitor. 3. Acute encephalopathy. 4. Respiratory failure: On vent. 5. Sepsis: Fungemia. Followed by ID. 6. Dilated cardiomyopathy with systolic LV dysfunction. D/w her son at the bedside. Subjective Date of service: 08/23/18 Principal diagnosis: Acute hypoxemic hypercapnic Resp failure; AE-COPD; Acute kidney injury Interval history: Patient was seen and examined at the bedside. Objective - Vital Signs Vital signs: Vital Signs - 12hr 08/22/18 08/22/18 08/22/18 21:30 21:31 22:00 Temperature Pulse Rate 77 74 Pulse Rate [ Anterior Bilateral Throughout] Pulse Rate [ 76 Right Dorsalis Pedis] Respiratory 19 30 H 28 H Rate Respiratory Rate [Anterior Bilateral Throughout] Blood Pressure 129/56 128/56 O2 Sat by Pulse 100 96 96 Oximetry 08/22/18 08/22/18 08/22/18 22:31 22:56 23:00 Temperature 100.5 F H Pulse Rate 72 72 Pulse Rate [ Anterior Bilateral Throughout] Pulse Rate [ Right Dorsalis Pedis] Respiratory 29 H 30 H Rate Respiratory Rate [Anterior Bilateral Throughout] Blood Pressure 112/36 107/48 O2 Sat by Pulse 100 97 Oximetry 08/22/18 08/22/18 08/22/18 23:24 23:30 23:36 Temperature Pulse Rate 72 72 71 Pulse Rate [ Anterior Bilateral Throughout] Pulse Rate [ Right Dorsalis Pedis] Respiratory 22 14 16 Rate Respiratory Rate [Anterior Bilateral Throughout] Blood Pressure 128/56 123/58 123/58 O2 Sat by Pulse 98 96 100 Oximetry 08/22/18 08/23/18 08/23/18 23:47 00:00 00:15 Temperature Pulse Rate 71 71 72 Pulse Rate [ Anterior Bilateral Throughout] Pulse Rate [ Right Dorsalis Pedis] Respiratory 25 H 25 H 24 Rate Respiratory Rate [Anterior Bilateral Throughout] Blood Pressure 129/58 130/58 135/66 O2 Sat by Pulse 99 100 98 Oximetry 08/23/18 08/23/18 08/23/18 00:30 00:33 00:45 Temperature Pulse Rate 74 70 73 Pulse Rate [ Anterior Bilateral Throughout] Pulse Rate [ Right Dorsalis Pedis] Respiratory 31 H 21 Rate Respiratory Rate [Anterior Bilateral Throughout] Blood Pressure 134/63 134/63 134/63 O2 Sat by Pulse 98 100 Oximetry 08/23/18 08/23/18 08/23/18 01:00 01:15 01:30 Temperature Pulse Rate 76 74 76 Pulse Rate [ Anterior Bilateral Throughout] Pulse Rate [ Right Dorsalis Pedis] Respiratory 15 16 15 Rate Respiratory Rate [Anterior Bilateral Throughout] Blood Pressure 164/67 154/69 172/72 O2 Sat by Pulse 99 98 99 Oximetry 08/23/18 08/23/18 08/23/18 01:45 01:54 02:00 Temperature Pulse Rate 74 73 Pulse Rate [ 75 Anterior Bilateral Throughout] Pulse Rate [ Right Dorsalis Pedis] Respiratory 19 22 Rate Respiratory 26 H Rate [Anterior Bilateral Throughout] Blood Pressure 152/62 137/59 O2 Sat by Pulse 97 98 Oximetry 08/23/18 08/23/18 08/23/18 02:09 02:15 02:30 Temperature Pulse Rate 73 74 Pulse Rate [ 77 Anterior Bilateral Throughout] Pulse Rate [ Right Dorsalis Pedis] Respiratory 22 22 Rate Respiratory 26 H Rate [Anterior Bilateral Throughout] Blood Pressure 124/51 135/59 O2 Sat by Pulse 98 98 Oximetry 08/23/18 08/23/18 08/23/18 02:45 03:00 03:15 Temperature Pulse Rate 75 74 73 Pulse Rate [ Anterior Bilateral Throughout] Pulse Rate [ Right Dorsalis Pedis] Respiratory 21 20 25 H Rate Respiratory Rate [Anterior Bilateral Throughout] Blood Pressure 137/60 135/56 137/59 O2 Sat by Pulse 98 98 97 Oximetry 08/23/18 08/23/18 08/23/18 03:30 03:31 03:45 Temperature 97.8 F Pulse Rate 73 72 Pulse Rate [ Anterior Bilateral Throughout] Pulse Rate [ Right Dorsalis Pedis] Respiratory 24 23 Rate Respiratory Rate [Anterior Bilateral Throughout] Blood Pressure 137/61 140/59 O2 Sat by Pulse 98 97 Oximetry 08/23/18 08/23/18 08/23/18 03:53 04:00 04:15 Temperature Pulse Rate 73 73 71 Pulse Rate [ Anterior Bilateral Throughout] Pulse Rate [ Right Dorsalis Pedis] Respiratory 19 20 Rate Respiratory Rate [Anterior Bilateral Throughout] Blood Pressure 140/59 132/56 121/51 O2 Sat by Pulse 98 100 97 Oximetry 08/23/18 08/23/18 08/23/18 04:30 04:45 05:00 Temperature 99.7 F H Pulse Rate 72 71 71 Pulse Rate [ Anterior Bilateral Throughout] Pulse Rate [ Right Dorsalis Pedis] Respiratory 19 20 20 Rate Respiratory Rate [Anterior Bilateral Throughout] Blood Pressure 128/59 132/57 133/62 O2 Sat by Pulse 98 99 100 Oximetry 08/23/18 08/23/18 08/23/18 05:15 05:31 05:45 Temperature Pulse Rate 70 74 76 Pulse Rate [ Anterior Bilateral Throughout] Pulse Rate [ Right Dorsalis Pedis] Respiratory 16 17 17 Rate Respiratory Rate [Anterior Bilateral Throughout] Blood Pressure 119/60 102/50 83/44 O2 Sat by Pulse 100 99 97 Oximetry 08/23/18 08/23/18 08/23/18 06:01 06:15 07:33 Temperature Pulse Rate 71 67 69 Pulse Rate [ Anterior Bilateral Throughout] Pulse Rate [ Right Dorsalis Pedis] Respiratory 19 19 Rate Respiratory Rate [Anterior Bilateral Throughout] Blood Pressure 97/49 84/44 114/52 O2 Sat by Pulse 100 100 100 Oximetry 08/23/18 08/23/18 08/23/18 07:45 07:56 08:00 Temperature 98.9 F Pulse Rate Pulse Rate [ 69 68 Anterior Bilateral Throughout] Pulse Rate [ Right Dorsalis Pedis] Respiratory Rate Respiratory 20 25 H Rate [Anterior Bilateral Throughout] Blood Pressure O2 Sat by Pulse Oximetry - General Appearance General appearance: well-developed, well-nourished, appears stated age, intubated, other (on vent) EENT: ATNC Neck: supple Respiratory: Present: Clear to Ascultation Cardiology: regular, S1S2, no murmurs Gastrointestinal: normoactive bowel sounds, no tenderness, no distended Integumentary: no rash, warm and dry Neurologic: other (opens eyes) Musculoskeletal: other (no edema) - Lab 08/23/18 Unknown 08/23/18 Unknown Most recent lab results Calcium 7.5 mg/dL (8.4-10.2) L 08/23/18 Unknown Phosphorus 4.30 mg/dL (2.5-4.5) 08/23/18 Unknown Magnesium 2.20 mg/dL (1.7-2.3) 08/23/18 Unknown Medications & Allergies - Medications Allergies/Adverse Reactions: Allergies No Known Allergies Allergy (Unverified 08/15/18 16:49) Home Medications: Home Medications Medication Instructions Recorded Confirmed Last Taken Type Carvedilol 6.25 mg PO BID 08/15/18 08/15/18 Unknown History DULoxetine 60 mg PO QDAY 08/15/18 08/15/18 Unknown History Gabapentin 600 mg PO Q6HR PRN 08/15/18 08/15/18 Unknown History Methylphenidate 5 mg PO TID 08/15/18 08/15/18 Unknown History Morphabond ER 60 mg PO Q12HR 08/15/18 08/15/18 Unknown History Pravastatin Sodium 10 mg PO QDAY 08/15/18 08/15/18 Unknown History Tizanidine HCl 4 mg PO Q12HR 08/15/18 08/15/18 Unknown History oxyCODONE /ACETAMINOPHEN 7.5 - 325 mg PO Q8HR 08/15/18 08/15/18 Unknown History Active Medications: Generic Name Dose Route Start Last Admin Trade Name Freq PRN Reason Stop Dose Admin Acetaminophen 650 mg 08/15/18 22:12 08/22/18 16:37 Tylenol PO 650 mg Q4H PRN Administration Pain MILD(1-3)/Fever >100.5/MONDRAGON Acetaminophen 650 mg 08/16/18 17:01 08/16/18 17:11 Tylenol HI 650 mg Q4H PRN Administration Pain, Mild (1-3) Albuterol 2.5 mg 08/17/18 17:00 Proventil IH Q3HRT PRN Shortness Of Breath Albuterol/Ipratropium 1 ampul 08/20/18 14:00 08/23/18 07:44 Duoneb *Not For Prn Use* IH 1 ampul Q6HRT LAMAR Administration Lipase/Protease/Amylase 1 each 08/17/18 15:55 lAis Elizabeth 10,500 Unit FEEDTUBE PRN PRN For Clogged Feeding Tube Arformoterol Tartrate 15 mcg 08/18/18 20:00 08/23/18 07:45 Brovana Nebu IH 15 mcg Q12HRT LAMAR Administration Budesonide 0.5 mg 08/18/18 20:00 08/23/18 07:44 Pulmicort IH 0.5 mg Q12HRT LAMAR Administration Carvedilol 6.25 mg 08/15/18 22:45 08/23/18 00:33 Coreg PO 6.25 mg BID LAMAR Administration Diphenhydramine HCl 25 mg 08/22/18 11:30 08/22/18 12:46 Benadryl IV 25 mg Q24H LAMAR Administration Duloxetine HCl 60 mg 08/16/18 10:00 08/21/18 09:33 Cymbalta PO Not Given QDAY LAMAR Famotidine 20 mg 08/21/18 10:00 08/22/18 10:41 Pepcid PO 20 mg DAILY LAMAR Administration Fentanyl 50 mcg 08/15/18 21:55 08/17/18 13:36 Sublimaze IV 50 mcg Q10MIN PRN Administration ANALGESIA Hydralazine HCl 10 mg 08/19/18 13:59 08/19/18 15:06 Apresoline IV 10 mg Q3H PRN Administration SBP > 160, DBP > 100 Hydrophilic Ointment 1 applic 08/15/18 21:55 Vaseline Lip Therapy TP Q2HR PRN Dry Lips Fentanyl Citrate 2,000 mcg in 100 mls @ 4.082 mls/hr 08/15/18 22:00 08/23/18 07:09 Fentanyl Drip Premix IV 4 mcg/kg/hr TITR LAMAR 16.329 mls/hr Administration Protocol 1 MCG/KG/HR Propofol 1,000 mg in 100 mls @ 2.449 mls/hr 08/15/18 21:15 08/23/18 06:41 Diprivan 10 Mg/Ml IV 10 mcg/kg/min TITR LAMAR 4.899 mls/hr Titration Protocol 5 MCG/KG/MIN Norepinephrine 4 mg in 250 mls @ 7.5 mls/hr 08/17/18 20:00 08/22/18 06:00 Levophed Drip 4 Mg/Ns 250 Ml IV 0 mcg/min TITR LAMAR 0 mls/hr Titration Protocol 2 MCG/MIN Cefazolin Sodium 2 gm/ Sodium 100 mls @ 100 mls/hr 08/22/18 12:00 08/23/18 00:35 Chloride IV 100 mls/hr Q12HR LAMAR Administration Amphotericin B 400 mg/ 580 mls @ 250 mls/hr 08/22/18 12:00 08/22/18 12:43 Dextrose IV 250 mls/hr Q24H LAMAR Administration Sodium Chloride 1,000 mls @ 50 mls/hr 08/22/18 12:00 Nacl 0.9% 1000 Ml IV DIRECT LAMAR Metoclopramide HCl 5 mg 08/15/18 22:50 Reglan IV Q6H PRN Nausea And Vomiting Ondansetron HCl 4 mg 08/15/18 22:12 Zofran IV Q8H PRN Nausea And Vomiting Quetiapine Fumarate 200 mg 08/22/18 12:00 08/23/18 00:32 Seroquel PO 200 mg BID LAMAR Administration Simple Syrup 15 ml 08/17/18 15:55 Simple Syrup FEEDTUBE PRN PRN Hypoglycemia Simple Syrup 30 ml 08/17/18 15:55 Simple Syrup FEEDTUBE PRN PRN Hypoglycemia Sodium Bicarbonate 325 mg 08/17/18 15:55 Sodium Bicarbonate FEEDTUBE PRN PRN For Clogged Feeding Tube Sodium Chloride 10 ml 08/16/18 10:00 08/23/18 00:29 Sodium Chloride Flush Syringe 10 Ml IV 10 ml BID LAMAR Administration Sodium Chloride 10 ml 08/15/18 22:12 08/18/18 21:52 Sodium Chloride Flush Syringe 10 Ml IV 10 ml PRN PRN Administration LINE FLUSH
--- NOTE | 2018-08-23 09:57 | Progress Note ---
Assessment and Plan Assessment and plan: --Acute hypoxic hypercapnic respiratory failure; intubated on ventilatory support nebulizers, IV antibiotics, supportive care wean as tolerated and extubate, pulmonary following --Persistent fever; secondary to severe sepsis Afebrile this morning, continue current antibiotics ID following --Aspiration pneumonia; continue Rocephin and Flagyl Patient is also on Diflucan, ID following Follow-up chest x-ray; partial improvement of pneumonia --Sepsis; secondary to aspiration pneumonia, continue current antibiotics Follow cultures, ID following --Hypernatremia; free water flushes, improved Closely monitor electrolytes, trending down --Hypokalemia; replace with KCl, follow electrolytes --Severe malnutrition/hypoalbuminemia; Nutrition consults and supportive care --Acute kidney injury; probably secondary to ATN avoid nephrotoxins, Nephrology following ----Acute systolic congestive heart failure; Ejection fraction 25-30%, continue current management Cardiology following --Elevated Transaminases; possible congested liver Levels trending down, check acute hepatitis panel Consider GI evaluation if needed --DVT prophylaxis; Lovenox Consults and recommendations noted and appreciated Plan of care reviewed with the patient's nurse Patient is critically ill with poor prognosis The high probability of a clinically significant, sudden or life threatening deterioration of the [respiratory, cardiology, ID, renal and metabolic] system(s) required my full and direct attention, intervention and personal management. The aggregate critical care time was [32] minutes. This time is in addition to time spent performing reported procedures but includes the following: [x] Data Review and interpretation [x] Patient assessment and monitoring of vital signs [x] Documentation [x] Medication orders and management History Interval history: Patient seen and examined medical records reviewed Patient remains intubated on ventilatory support Mild agitation No new events reported by the nursing Vital signs noted Hospitalist Physical - Constitutional Vitals: Temp Pulse Resp BP Pulse Ox 98.9 F 68 25 H 114/52 100 08/23/18 08:00 08/23/18 07:56 08/23/18 07:56 08/23/18 07:33 08/23/18 07:33 General appearance: Present: no acute distress, well-nourished, other (intubated on ventilatory support, sedated) - EENT Eyes: Present: PERRL, EOM intact - Neck Neck: Present: supple, normal ROM - Respiratory Respiratory effort: normal Respiratory: bilateral: diminished, rhonchi, negative: rales, wheezing - Cardiovascular Rhythm: regular Heart Sounds: Present: S1 & S2 - Extremities Extremities: no ischemia, No edema - Abdominal General gastrointestinal: soft, non-tender, non-distended, normal bowel sounds - Integumentary Integumentary: Present: clear, warm - Psychiatric Psychiatric: other (intubated on vent) - Neurologic Neurologic: other (intubated on vent) Results - Labs CBC & Chem 7: 08/23/18 Unknown 08/23/18 Unknown Labs: Laboratory Last Values WBC 12.1 K/mm3 (4.5-11.0) H 08/23/18 Unknown RBC 2.29 M/mm3 (3.65-5.03) L 08/23/18 Unknown Hgb 7.1 gm/dl (10.1-14.3) L 08/23/18 Unknown Hct 21.7 % (30.3-42.9) L 08/23/18 Unknown MCV 95 fl (79-97) 08/23/18 Unknown MCH 31 pg (28-32) 08/23/18 Unknown MCHC 33 % (30-34) 08/23/18 Unknown RDW 15.7 % (13.2-15.2) H 08/23/18 Unknown Plt Count 106 K/mm3 (140-440) L 08/23/18 Unknown Add Manual Diff Complete 08/23/18 Unknown Total Counted 100 08/23/18 Unknown Seg Neuts % (Manual) 92.0 % (40.0-70.0) H 08/23/18 Unknown Band Neutrophils % 0 % 08/23/18 Unknown Lymphocytes % (Manual) 4.0 % (13.4-35.0) L 08/23/18 Unknown Reactive Lymphs % (Man) 0 % 08/23/18 Unknown Monocytes % (Manual) 2.0 % (0.0-7.3) 08/23/18 Unknown Eosinophils % (Manual) 0 % (0.0-4.3) 08/23/18 Unknown Basophils % (Manual) 0 % (0.0-1.8) 08/23/18 Unknown Metamyelocytes % 2.0 % 08/23/18 Unknown Myelocytes % 0 % 08/23/18 Unknown Promyelocytes % 0 % 08/23/18 Unknown Blast Cells % 0 % 08/23/18 Unknown Nucleated RBC % Not Reportable 08/23/18 Unknown Seg Neutrophils # Man 11.1 K/mm3 (1.8-7.7) H 08/23/18 Unknown Band Neutrophils # 0.0 K/mm3 08/23/18 Unknown Lymphocytes # (Manual) 0.5 K/mm3 (1.2-5.4) L 08/23/18 Unknown Abs React Lymphs (Man) 0.0 K/mm3 08/23/18 Unknown Monocytes # (Manual) 0.2 K/mm3 (0.0-0.8) 08/23/18 Unknown Eosinophils # (Manual) 0.0 K/mm3 (0.0-0.4) 08/23/18 Unknown Basophils # (Manual) 0.0 K/mm3 (0.0-0.1) 08/23/18 Unknown Metamyelocytes # 0.2 K/mm3 08/23/18 Unknown Myelocytes # 0.0 K/mm3 08/23/18 Unknown Promyelocytes # 0.0 K/mm3 08/23/18 Unknown Blast Cells # 0.0 K/mm3 08/23/18 Unknown WBC Morphology Not Reportable 08/23/18 Unknown Hypersegmented Neuts Not Reportable 08/23/18 Unknown Hyposegmented Neuts Not Reportable 08/23/18 Unknown Hypogranular Neuts Not Reportable 08/23/18 Unknown Smudge Cells Not Reportable 08/23/18 Unknown Toxic Granulation Not Reportable 08/23/18 Unknown Toxic Vacuolation Not Reportable 08/23/18 Unknown Dohle Bodies Not Reportable 08/23/18 Unknown Pelger-Huet Anomaly Not Reportable 08/23/18 Unknown Rosy Rods Not Reportable 08/23/18 Unknown Platelet Estimate Cons 08/23/18 Unknown Clumped Platelets Not Reportable 08/23/18 Unknown Plt Clumps, EDTA Not Reportable 08/23/18 Unknown Large Platelets Not Reportable 08/23/18 Unknown Giant Platelets Not Reportable 08/23/18 Unknown Platelet Satelliting Not Reportable 08/23/18 Unknown Plt Morphology Comment Not Reportable 08/23/18 Unknown RBC Morphology Not Reportable 08/23/18 Unknown Dimorphic RBCs Not Reportable 08/23/18 Unknown Polychromasia Not Reportable 08/23/18 Unknown Hypochromasia Not Reportable 08/23/18 Unknown Poikilocytosis Not Reportable 08/23/18 Unknown Anisocytosis 1+ 08/23/18 Unknown Microcytosis Not Reportable 08/23/18 Unknown Macrocytosis Not Reportable 08/23/18 Unknown Spherocytes Not Reportable 08/23/18 Unknown Pappenheimer Bodies Not Reportable 08/23/18 Unknown Sickle Cells Not Reportable 08/23/18 Unknown Target Cells Not Reportable 08/23/18 Unknown Tear Drop Cells Not Reportable 08/23/18 Unknown Ovalocytes Not Reportable 08/23/18 Unknown Helmet Cells Not Reportable 08/23/18 Unknown Hernandez-Camanche Bodies Not Reportable 08/23/18 Unknown Bedford Rings Not Reportable 08/23/18 Unknown Atwater Cells Not Reportable 08/23/18 Unknown Bite Cells Not Reportable 08/23/18 Unknown Crenated Cell Not Reportable 08/23/18 Unknown Elliptocytes Not Reportable 08/23/18 Unknown Acanthocytes (Spur) Not Reportable 08/23/18 Unknown Rouleaux Not Reportable 08/23/18 Unknown Hemoglobin C Crystals Not Reportable 08/23/18 Unknown Schistocytes Not Reportable 08/23/18 Unknown Malaria parasites Not Reportable 08/23/18 Unknown Ceasar Bodies Not Reportable 08/23/18 Unknown Hem Pathologist Commnt No 08/23/18 Unknown D-Dimer 2768.33 ng/mlDDU (0-234) H 08/15/18 18:31 POC ABG pH 7.306 (7.35-7.45) L 08/23/18 03:59 POC ABG pCO2 38.8 (35-45) 08/23/18 03:59 POC ABG pO2 119 (80-105) H 08/23/18 03:59 POC ABG HCO3 19.3 (22-26 mml/L) 08/23/18 03:59 POC ABG Total CO2 20 (23-27mmol/L) 08/23/18 03:59 POC ABG O2 Sat 98 08/23/18 03:59 POC ABG Base Excess -7 ((-2) - (+3)mmol/L) 08/23/18 03:59 VBG pH 7.187 (7.320-7.420) L* 08/15/18 18:19 FiO2 50 % 08/23/18 03:59 Sodium 145 mmol/L (137-145) 08/23/18 Unknown Potassium 3.7 mmol/L (3.6-5.0) 08/23/18 Unknown Chloride 115.7 mmol/L (98-107) H 08/23/18 Unknown Carbon Dioxide 21 mmol/L (22-30) L 08/23/18 Unknown Anion Gap 12 mmol/L 08/23/18 Unknown BUN 64 mg/dL (7-17) H 08/23/18 Unknown Creatinine 2.0 mg/dL (0.7-1.2) H 08/23/18 Unknown Estimated GFR 25 ml/min 08/23/18 Unknown BUN/Creatinine Ratio 32 % 08/23/18 Unknown Glucose 149 mg/dL (65-100) H 08/23/18 Unknown POC Glucose 169 (70-105) H 08/22/18 18:40 Hemoglobin A1c 6.4 % (4-6) H 08/15/18 23:09 Lactic Acid 1.20 mmol/L (0.7-2.0) 08/22/18 15:29 Calcium 7.5 mg/dL (8.4-10.2) L 08/23/18 Unknown Phosphorus 4.30 mg/dL (2.5-4.5) 08/23/18 Unknown Magnesium 2.20 mg/dL (1.7-2.3) 08/23/18 Unknown Total Bilirubin 0.20 mg/dL (0.1-1.2) 08/23/18 Unknown AST 26 units/L (5-40) 08/23/18 Unknown ALT 22 units/L (7-56) 08/23/18 Unknown Alkaline Phosphatase 62 units/L (35-129) 08/23/18 Unknown Troponin T 0.317 ng/mL (0.00-0.029) H* D 08/18/18 13:39 C-Reactive Protein 4.70 mg/dL (0.00-1.30) H 08/22/18 15:29 Total Protein 4.8 g/dL (6.3-8.2) L 08/23/18 Unknown Albumin 2.0 g/dL (3.9-5) L 08/23/18 Unknown Albumin/Globulin Ratio 0.7 % 08/23/18 Unknown Triglycerides 197 mg/dL (2-149) H 08/22/18 06:45 Cholesterol 87 mg/dL (50-199) 08/15/18 18:31 LDL Cholesterol Direct 4 mg/dL (50-130) L 08/15/18 18:31 HDL Cholesterol 10 mg/dL (40-59) L 08/15/18 18:31 Cholesterol/HDL Ratio 8.70 % 08/15/18 18:31 Urine Color Rosemarie (Yellow) 08/15/18 19:15 Urine Turbidity Cloudy (Clear) 08/15/18 19:15 Urine pH 5.0 (5.0-7.0) 08/15/18 19:15 Ur Specific Hobson 1.025 (1.003-1.030) 08/15/18 19:15 Urine Protein 30 mg/dl mg/dL (Negative) 08/15/18 19:15 Urine Glucose (UA) Neg mg/dL (Negative) 08/15/18 19:15 Urine Ketones Neg mg/dL (Negative) 08/15/18 19:15 Urine Blood Mod (Negative) 08/15/18 19:15 Urine Nitrite Neg (Negative) 08/15/18 19:15 Urine Bilirubin Neg (Negative) 08/15/18 19:15 Urine Urobilinogen 2.0 mg/dL (<2.0) 08/15/18 19:15 Ur Leukocyte Esterase Mod (Negative) 08/15/18 19:15 Urine WBC (Auto) 17.0 /HPF (0.0-6.0) H 08/15/18 19:15 Urine RBC (Auto) 5.0 /HPF (0.0-6.0) 08/15/18 19:15 Urine WBC Clumps 2+ /HPF 08/15/18 19:15 Amorphous Crystals 1+ 08/15/18 19:15 Hyaline Casts 54 /LPF 08/15/18 19:15 Granular Casts 14 /LPF 08/15/18 19:15 Urine Mucus Few /HPF 08/15/18 19:15 Salicylates < 0.3 mg/dL (2.8-20.0) L 08/15/18 19:14 Urine Opiates Screen Presumptive positive 08/15/18 19:15 Urine Methadone Screen Presumptive negative 08/15/18 19:15 Acetaminophen < 5.0 ug/mL (10.0-30.0) L 08/15/18 19:14 Ur Barbiturates Screen Presumptive negative 08/15/18 19:15 Ur Phencyclidine Scrn Presumptive negative 08/15/18 19:15 Ur Amphetamines Screen Presumptive negative 08/15/18 19:15 U Benzodiazepines Scrn Presumptive negative 08/15/18 19:15 Urine Cocaine Screen Presumptive negative 08/15/18 19:15 U Marijuana (THC) Screen Presumptive negative 08/15/18 19:15 Drugs of Abuse Note Disclamer 08/15/18 19:15 C. difficile Toxin A&B Negative (Negative) 08/19/18 14:00 HIV 1&2 Antibody Rapid Non react (Non React) 08/18/18 13:39 HIV P24 Antigen Non react (Non React) 08/18/18 13:39 Active Medications - Current Medications Current Medications: Generic Name Dose Route Start Last Admin Trade Name Freq PRN Reason Stop Dose Admin Acetaminophen 650 mg 08/15/18 22:12 08/22/18 16:37 Tylenol PO 650 mg Q4H PRN Administration Pain MILD(1-3)/Fever >100.5/MONDRAGON Acetaminophen 650 mg 08/16/18 17:01 08/16/18 17:11 Tylenol ND 650 mg Q4H PRN Administration Pain, Mild (1-3) Albuterol 2.5 mg 08/17/18 17:00 Proventil IH Q3HRT PRN Shortness Of Breath Albuterol/Ipratropium 1 ampul 08/20/18 14:00 08/23/18 07:44 Duoneb *Not For Prn Use* IH 1 ampul Q6HRT LAMAR Administration Lipase/Protease/Amylase 1 each 08/17/18 15:55 Pancresam Elizabeth 10,500 Unit FEEDTUBE PRN PRN For Clogged Feeding Tube Arformoterol Tartrate 15 mcg 08/18/18 20:00 08/23/18 07:45 Brovana Nebu IH 15 mcg Q12HRT LAMAR Administration Budesonide 0.5 mg 08/18/18 20:00 08/23/18 07:44 Pulmicort IH 0.5 mg Q12HRT LAMAR Administration Carvedilol 6.25 mg 08/15/18 22:45 08/23/18 00:33 Coreg PO 6.25 mg BID LAMAR Administration Diphenhydramine HCl 25 mg 08/22/18 11:30 08/22/18 12:46 Benadryl IV 25 mg Q24H LAMAR Administration Duloxetine HCl 60 mg 08/16/18 10:00 08/21/18 09:33 Cymbalta PO Not Given QDAY LAMAR Famotidine 20 mg 08/21/18 10:00 08/22/18 10:41 Pepcid PO 20 mg DAILY LAMAR Administration Fentanyl 50 mcg 08/15/18 21:55 08/17/18 13:36 Sublimaze IV 50 mcg Q10MIN PRN Administration ANALGESIA Hydralazine HCl 10 mg 08/19/18 13:59 08/19/18 15:06 Apresoline IV 10 mg Q3H PRN Administration SBP > 160, DBP > 100 Hydrophilic Ointment 1 applic 08/15/18 21:55 Vaseline Lip Therapy TP Q2HR PRN Dry Lips Fentanyl Citrate 2,000 mcg in 100 mls @ 4.082 mls/hr 08/15/18 22:00 08/23/18 07:09 Fentanyl Drip Premix IV 4 mcg/kg/hr TITR LAMAR 16.329 mls/hr Administration Protocol 1 MCG/KG/HR Propofol 1,000 mg in 100 mls @ 2.449 mls/hr 08/15/18 21:15 08/23/18 06:41 Diprivan 10 Mg/Ml IV 10 mcg/kg/min TITR LAMAR 4.899 mls/hr Titration Protocol 5 MCG/KG/MIN Norepinephrine 4 mg in 250 mls @ 7.5 mls/hr 08/17/18 20:00 08/22/18 06:00 Levophed Drip 4 Mg/Ns 250 Ml IV 0 mcg/min TITR LAMAR 0 mls/hr Titration Protocol 2 MCG/MIN Cefazolin Sodium 2 gm/ Sodium 100 mls @ 100 mls/hr 08/22/18 12:00 08/23/18 00:35 Chloride IV 100 mls/hr Q12HR LAMAR Administration Amphotericin B 400 mg/ 580 mls @ 250 mls/hr 08/22/18 12:00 08/22/18 12:43 Dextrose IV 250 mls/hr Q24H LAMAR Administration Sodium Chloride 1,000 mls @ 50 mls/hr 08/22/18 12:00 Nacl 0.9% 1000 Ml IV DIRECT LAMAR Metoclopramide HCl 5 mg 08/15/18 22:50 Reglan IV Q6H PRN Nausea And Vomiting Ondansetron HCl 4 mg 08/15/18 22:12 Zofran IV Q8H PRN Nausea And Vomiting Quetiapine Fumarate 200 mg 08/22/18 12:00 08/23/18 00:32 Seroquel PO 200 mg BID LAMAR Administration Simple Syrup 15 ml 08/17/18 15:55 Simple Syrup FEEDTUBE PRN PRN Hypoglycemia Simple Syrup 30 ml 08/17/18 15:55 Simple Syrup FEEDTUBE PRN PRN Hypoglycemia Sodium Bicarbonate 325 mg 08/17/18 15:55 Sodium Bicarbonate FEEDTUBE PRN PRN For Clogged Feeding Tube Sodium Chloride 10 ml 08/16/18 10:00 08/23/18 00:29 Sodium Chloride Flush Syringe 10 Ml IV 10 ml BID LAMAR Administration Sodium Chloride 10 ml 08/15/18 22:12 08/18/18 21:52 Sodium Chloride Flush Syringe 10 Ml IV 10 ml PRN PRN Administration LINE FLUSH Nutrition/Malnutrition Assess - Dietary Evaluation Nutrition/Malnutrition Findings: Nutrition Notes Start: 08/17/18 13:57 Freq: Status: Active Protocol: Document 08/19/18 12:05 RD (Rec: 08/19/18 13:19 RD [email or web address]) Co-Sign 08/19/18 12:05 OL Nutrition Notes Initial or Follow up Reassessment Current Diagnosis Acute Kidney Injury,COPD, Diabetes,Sepsis,Hypertension, Respiratory Failure, Hyperlipidemia Other Pertinent Diagnosis AMS, hypokalemia, NSTEMI, encephalopathy, pneu, hypernatermia, shock liver Current Diet Vital AF 1.2 at 60mL/hr Labs/Tests Na 154 K 3.3 Cl 115 BUN 19 Pertinent Medications Propofol Height 5 ft 7 in Weight 84.6 kg [place] Body Weight (kg) 61.36 BMI 29.2 Subjective/Other Information Per RN, pt tolerating TF well. TF running at goal rate. #1 Nutrition Diagnosis Inadequate oral intake Diagnosis Progress(for reassessment Continues documentation) Is patient on ventilator? Yes Is Patient Ambulatory and/or Out of Bed No REE-([facility]-confined to bed) [phone] Calculation Used for Recommendations Cook-St Jeor Additional Notes Protein needs: (1.2-2g/kg) 97- 162g/day Fluid needs: 1ml/kcal Nutrition Intervention Change Diet Order: TF Nutrition Support: Vital AF 1.2 at 60mL/hr with 150mL flush q4h. Kcal 1,728 Protein (gm) 108 Fluid (mL) 1,168 Goal #1 Tolerate TF Goal #2 Meet at least 75% of nutrient needs via TF Anticipated Discharge Needs: Unable to determine at this time Follow-Up By: 08/24/18 Additional Comments f/u: stable TF, Na labs
--- NOTE | 2018-08-23 10:24 | Progress Note ---
Assessment and Plan Cultures: 08/15/2018 blood culture: One set positive for yeast 08/15/2018 sputum culture: MSSA and Escherichia coli, wade susceptible 08/18/2018 blood culture: no growth today 08/18/2018 urine culture: neg A/P: 68-year-old female with COPD, arthritis, history of multiple spinal surgeries was brought to the emergency room on 08/15/2018 with altered mental status: 1) Sepsis: Noted persistent high fever and WBC better. Etio is unclear. Likely fungemia however it is not responding to 2 day-course of initial fluconazole and then 3 day-course micafungin. 2) Fungemia: Blood cultures done on admission growing yeast in one set (per micro it does not look like Camryn or Crypto). Etiology is unclear. Patient without any history of indwelling PICC line, TPN or immunocompromised status. reporting severe explosive diarrhea, N/V before admission after taken 4 days of amoxicillin for dental implant on 07/29/2018 and had a EGD / colonoscopy on 08/08/[address] [facility] [address] Alcantara. I reviewed report mild chronic gastritis, focal intestinal metaplasia, squamocolumnar mucosa with mild reflux-type changes, and tubular adenoma. -s/p fluconazole 800 mg loading dose -serum Crypto negative. -08/15/2018 blood culture: One set positive for yeast (spoke with micro it does not look like Camryn or Crypto) -08/18/2018 blood culture: no growth today -CTA chest showed limited study due to respiratory motion artifact. No evidence of pulmonary embolism. Abnormal bilateral lung consolidation which may represent pulmonary edema or pneumonia. Mild cardiomegaly. Indeterminant mediastinal lymph nodes. -CT abdomen showed extensive bilateral lower lobe pulmonary infiltrates, rectal tube and Dodge catheter noted. NG tube at gastric antrum. Left hip prosthesis Extensive degenerative changes noted lumbar spine -TTE EF 25-30% no vegetations -HIV neg -reviewed CT chest abd done 01/05/2019 showed cholecystectomy, mild fatty liver, postoperative changes of lumbar laminectomy with non specific fluid, 9 mm LLL pulmonary nodule which was compared to previous CT and was stable. 3) Acute renal failure: On admission: Creatinine worsening. Nephrology following. 4) Transaminitis: Likely from shock liver. Better. 5) Bilateral pneumonia: DDx aspiration pneumonia v/s CAP. Causing acute respiratory failure. Chest x-ray shows reticular nodular infiltrates, some of these appear to be chronic and would also present in 2011. CTA chest showed limited study due to respiratory motion artifact. No evidence of pulmonary e mbolism. Abnormal bilateral lung consolidation which may represent pulmonary edema or pneumonia. Mild cardiomegaly. Indeterminant mediastinal lymph nodes. -Sputum culture 08/15 MSSA and Escherichia coli, wade susceptible 6) Right maxillary sinusitis 7) Acute encephalopathy: Likely multifactorial. CT head unremarkable for acute intracranial process. currently sedated. 8) Recent diarrhea after antibiotics. C diff negative. Reviewed CT abdomen with Dr Stoddard and no evidence of diverticulitis, colitis or abscess Recs: Send aspegillus antigen and 1,2 beta D glucan via miscellaneous order Continue cefazolin IV renally adjusted to cover MSSA and Escherichia coli Continue amphothericin renally adjusted D2 f/u Repeat blood cultures ordered f/u blood culture 08/15/2018 ID and sensitivity-spoke with [facility] further plate reading will be done tomorrow Of note, the RIJ central line will need removal at some point since it was placed during active fungemia Discussed with son and pharmacist Yasmin Alvarez MD Infectious Diseases [place] [facility] M [phone] O [phone] Subjective Date of service: 08/23/18 Principal diagnosis: Acute hypoxemic hypercapnic Resp failure; AE-COPD; Acute kidney injury Interval history: Remains intubated fiO2 45%, p 8, on light sedative, open eyes, no pressors, tmax 103.9 yesterday. Son at bedside. ROS: unable to obtain Objective - Exam Narrative Exam: Constitutional: sedated, open eyes, intubated fiO2 45%, p8 Head, Ears, Nose: Normocephalic, atraumatic. External ears, nose normal Eyes: Conjunctivae/corneas clear. No icterus. No ptosis. Neck: Supple, no meningeal signs Oral: +ETT Cardiovascular: irreg Respiratory: gonzalez loud rhonchi GI: Soft, non-tender; bowel sounds normal. No peritoneal signs Musculoskeletal: No pedal edema, no cyanosis. Skin: No rash or abscess Hem/Lymphatic: No palpable cervical or supraclavicular nodes. No lymphangitis Psych: no agitation Neurological: sedated, intubated, on vent Rectal tube with diarrhea - Constitutional Vitals: Vital Signs Temp Pulse Resp BP Pulse Ox 98.9 F 76 25 H 128/56 98 08/23/18 08:00 08/23/18 10:00 08/23/18 10:00 08/23/18 10:00 08/23/18 10:00 Temperature -Last 24 Hours Temperature 98.9 F Temperature 99.7 F Temperature 97.8 F Temperature 100.5 F Temperature 102.1 F Temperature 103.9 F Temperature 100.5 F - Labs CBC & Chem 7: 08/23/18 Unknown 08/23/18 Unknown Labs: Abnormal lab results 08/22/18 08/22/18 08/23/18 Range/Units 15:29 18:40 03:59 WBC (4.5-11.0) K/mm3 RBC (3.65-5.03) M/mm3 Hgb (10.1-14.3) gm/dl Hct (30.3-42.9) % RDW (13.2-15.2) % Plt Count (140-440) K/mm3 Seg Neuts % (Manual) (40.0-70.0) % Lymphocytes % (Manual) (13.4-35.0) % Seg Neutrophils # Man (1.8-7.7) K/mm3 Lymphocytes # (Manual) (1.2-5.4) K/mm3 POC ABG pH 7.306 L (7.35-7.45) POC ABG pO2 119 H (80-105) Chloride (98-107) mmol/L Carbon Dioxide (22-30) mmol/L BUN (7-17) mg/dL Creatinine (0.7-1.2) mg/dL Glucose (65-100) mg/dL POC Glucose 169 H (70-105) Calcium (8.4-10.2) mg/dL C-Reactive Protein 4.70 H (0.00-1.30) mg/dL Total Protein (6.3-8.2) g/dL Albumin (3.9-5) g/dL 08/23/18 08/23/18 Range/Units Unknown Unknown WBC 12.1 H (4.5-11.0) K/mm3 RBC 2.29 L (3.65-5.03) M/mm3 Hgb 7.1 L (10.1-14.3) gm/dl Hct 21.7 L (30.3-42.9) % RDW 15.7 H (13.2-15.2) % Plt Count 106 L (140-440) K/mm3 Seg Neuts % (Manual) 92.0 H (40.0-70.0) % Lymphocytes % (Manual) 4.0 L (13.4-35.0) % Seg Neutrophils # Man 11.1 H (1.8-7.7) K/mm3 Lymphocytes # (Manual) 0.5 L (1.2-5.4) K/mm3 POC ABG pH (7.35-7.45) POC ABG pO2 (80-105) Chloride 115.7 H (98-107) mmol/L Carbon Dioxide 21 L (22-30) mmol/L BUN 64 H (7-17) mg/dL Creatinine 2.0 H (0.7-1.2) mg/dL Glucose 149 H (65-100) mg/dL POC Glucose (70-105) Calcium 7.5 L (8.4-10.2) mg/dL C-Reactive Protein (0.00-1.30) mg/dL Total Protein 4.8 L (6.3-8.2) g/dL Albumin 2.0 L (3.9-5) g/dL
[2018-08-23] MEDS: CYMBALTA PO SCH (10:41)
[2018-08-23] MEDS: PEPCID PO SCH (10:41)
--- NOTE | 2018-08-23 12:33 | Progress Note ---
Assessment and Plan Acute hypoxic-hypercapnic respiratory failure on MVS Acute COPD exacerbation NSTEMI Acute encephalopathy (toxic-metabolic) Thrombocytopenia Hypokalemia Acute kidney injury h/o Chronic Narcotic Dependence Aspiration pneumonia/CAP Hypokalemia GNR in tracheal aspirate Hypernatremia (Prior CXR's suggest chronic/structural lung disease and etiology of fungemia unclear) - consider surgery evaluation of left hip prosthesis as source of fungemia if persistent - if repeat BC's positive will change IV lines - begin accuchecks q6h and target glycemic control for BG 140 - 180 mg/dl acutely - begin D5W with 2 amps NaHCO3 / l at 75 mls/hr X 2 liters re: metabolic acidosis - reduce set rate to 16/min - wean levophed for MAP > 65 mmHg a9off now) - continue seroquel at 200 mg bid (suspect possible element of opiate withdrawal slowly creeping in) - stopped lovenox and sent HIT assay re: acute thrombocytopenia - continue amphotericin for fungemia - nephrology evaluation ongoing re: CHANDANA in setting of IV contrast and now requiring amphotericin - prn triglyceride levels re: propofol infusion - continue free water for hyperkalemia - cardiology consulted for CHF - follow CD4 count (HIV serologies negative) - continue antiinfectives per ID rec's - continue brovana & pulmicort re: COPD - Continue to Wean supplemental oxygen to keep O2 sats 88-90% (restrictive Oxygen strategies acutely) - continue lung protective strategies - Daily ABGs/CXR for now - VAP bundle addressed - Avoid benzodiazepines, use high dose fentanyl for agitation and analgesia - Daily SAT's & SBT's assessment - Sedation target for RASS 0 to -1 - Stress ulcer prophylaxis - VTE prophylaxis - enteral Nutrition as tolerated - VAP bundle addressed - Free water flushes for hypernatremia - Continue bronchodilators with pulmonary hygiene per RT - Maintenance of sleep -wake cycle - Mobility protocol for pressure ulcer prophylaxis as tolerated by hemodynamics - Influenza and pneumonia vaccination per protocol ..care plan discussed at length with family at the bedside ... re-evaluate in am & prn PROGNOSIS :FAIR CONDITION: CRITICAL CODE STATUS: FULL CODE The high probability of a clinically significant, sudden or life-threatening deterioration of the [respiratory, neurology, renal] system(s) required my full and direct attention, intervention and personal management. The aggregate critical care time was [34] minutes without overlap. Time includes spent on; [x] Data Review and interpretation [x] Patient assessment and monitoring of vital signs [x] Documentation [x] Medication orders and management Subjective Date of service: 08/23/18 Principal diagnosis: Acute hypoxemic hypercapnic Resp failure; AE-COPD; Acute kidney injury Interval history: Patient is seen today for: Acute hypoxemic - hypercapnic respiratory failure on MVS; Acute COPD exacerbation; Acute encephalopathy (toxic-metabolic); Hypokalemia; Acute kidney injury Seen and examined at bedside; 24hour events reviewed; nursing and respiratory care staff consulted; no adverse overnight events reported to me; resting peacefully in bed; more coherent and needing less I.V. sedation with addition of seroquel; son and visiting; follows simple questions; no emesis or overt aspiration; sugars running a little high Objective Vital Signs - 12hr 08/23/18 08/23/18 08/23/18 00:33 00:45 01:00 Temperature Pulse Rate 70 73 76 Pulse Rate [ Anterior Bilateral Throughout] Respiratory 21 15 Rate Respiratory Rate [Anterior Bilateral Throughout] Respiratory Rate [Left Lower Abdomen] Blood Pressure 134/63 134/63 164/67 O2 Sat by Pulse 100 99 Oximetry 08/23/18 08/23/18 08/23/18 01:15 01:30 01:45 Temperature Pulse Rate 74 76 74 Pulse Rate [ Anterior Bilateral Throughout] Respiratory 16 15 19 Rate Respiratory Rate [Anterior Bilateral Throughout] Respiratory Rate [Left Lower Abdomen] Blood Pressure 154/69 172/72 152/62 O2 Sat by Pulse 98 99 97 Oximetry 08/23/18 08/23/18 08/23/18 01:54 02:00 02:09 Temperature Pulse Rate 73 Pulse Rate [ 75 77 Anterior Bilateral Throughout] Respiratory 22 Rate Respiratory 26 H 26 H Rate [Anterior Bilateral Throughout] Respiratory Rate [Left Lower Abdomen] Blood Pressure 137/59 O2 Sat by Pulse 98 Oximetry 08/23/18 08/23/18 08/23/18 02:15 02:30 02:45 Temperature Pulse Rate 73 74 75 Pulse Rate [ Anterior Bilateral Throughout] Respiratory 22 22 21 Rate Respiratory Rate [Anterior Bilateral Throughout] Respiratory Rate [Left Lower Abdomen] Blood Pressure 124/51 135/59 137/60 O2 Sat by Pulse 98 98 98 Oximetry 08/23/18 08/23/18 08/23/18 03:00 03:15 03:30 Temperature Pulse Rate 74 73 73 Pulse Rate [ Anterior Bilateral Throughout] Respiratory 20 25 H 24 Rate Respiratory Rate [Anterior Bilateral Throughout] Respiratory Rate [Left Lower Abdomen] Blood Pressure 135/56 137/59 137/61 O2 Sat by Pulse 98 97 98 Oximetry 08/23/18 08/23/18 08/23/18 03:31 03:45 03:53 Temperature 97.8 F Pulse Rate 72 73 Pulse Rate [ Anterior Bilateral Throughout] Respiratory 23 Rate Respiratory Rate [Anterior Bilateral Throughout] Respiratory Rate [Left Lower Abdomen] Blood Pressure 140/59 140/59 O2 Sat by Pulse 97 98 Oximetry 08/23/18 08/23/18 08/23/18 04:00 04:15 04:30 Temperature Pulse Rate 73 71 72 Pulse Rate [ Anterior Bilateral Throughout] Respiratory 19 20 19 Rate Respiratory Rate [Anterior Bilateral Throughout] Respiratory Rate [Left Lower Abdomen] Blood Pressure 132/56 121/51 128/59 O2 Sat by Pulse 100 97 98 Oximetry 08/23/18 08/23/18 08/23/18 04:45 05:00 05:15 Temperature 99.7 F H Pulse Rate 71 71 70 Pulse Rate [ Anterior Bilateral Throughout] Respiratory 20 20 16 Rate Respiratory Rate [Anterior Bilateral Throughout] Respiratory Rate [Left Lower Abdomen] Blood Pressure 132/57 133/62 119/60 O2 Sat by Pulse 99 100 100 Oximetry 08/23/18 08/23/18 08/23/18 05:31 05:45 06:01 Temperature Pulse Rate 74 76 71 Pulse Rate [ Anterior Bilateral Throughout] Respiratory 17 17 19 Rate Respiratory Rate [Anterior Bilateral Throughout] Respiratory Rate [Left Lower Abdomen] Blood Pressure 102/50 83/44 97/49 O2 Sat by Pulse 99 97 100 Oximetry 08/23/18 08/23/18 08/23/18 06:15 06:30 06:45 Temperature Pulse Rate 67 65 64 Pulse Rate [ Anterior Bilateral Throughout] Respiratory 19 19 19 Rate Respiratory Rate [Anterior Bilateral Throughout] Respiratory Rate [Left Lower Abdomen] Blood Pressure 84/44 89/43 96/46 O2 Sat by Pulse 100 100 Oximetry 08/23/18 08/23/18 08/23/18 07:00 07:15 07:30 Temperature Pulse Rate 64 66 68 Pulse Rate [ Anterior Bilateral Throughout] Respiratory 16 17 20 Rate Respiratory Rate [Anterior Bilateral Throughout] Respiratory Rate [Left Lower Abdomen] Blood Pressure 97/46 104/52 114/52 O2 Sat by Pulse 100 100 Oximetry 08/23/18 08/23/18 08/23/18 07:33 07:45 07:56 Temperature Pulse Rate 69 69 Pulse Rate [ 69 68 Anterior Bilateral Throughout] Respiratory 22 Rate Respiratory 20 25 H Rate [Anterior Bilateral Throughout] Respiratory Rate [Left Lower Abdomen] Blood Pressure 114/52 114/91 O2 Sat by Pulse 100 100 Oximetry 08/23/18 08/23/18 08/23/18 08:00 08:15 08:30 Temperature 98.9 F Pulse Rate 70 71 72 Pulse Rate [ Anterior Bilateral Throughout] Respiratory 19 24 19 Rate Respiratory Rate [Anterior Bilateral Throughout] Respiratory Rate [Left Lower Abdomen] Blood Pressure 105/57 109/52 112/50 O2 Sat by Pulse 100 100 99 Oximetry 08/23/18 08/23/18 08/23/18 08:45 09:00 09:15 Temperature Pulse Rate 73 71 75 Pulse Rate [ Anterior Bilateral Throughout] Respiratory 21 23 21 Rate Respiratory Rate [Anterior Bilateral Throughout] Respiratory Rate [Left Lower Abdomen] Blood Pressure 117/51 115/52 118/58 O2 Sat by Pulse 100 100 100 Oximetry 08/23/18 08/23/18 08/23/18 09:30 09:45 10:00 Temperature Pulse Rate 76 76 78 Pulse Rate [ Anterior Bilateral Throughout] Respiratory 17 19 22 Rate Respiratory Rate [Anterior Bilateral Throughout] Respiratory 25 H Rate [Left Lower Abdomen] Blood Pressure 129/55 124/56 128/56 O2 Sat by Pulse 100 100 98 Oximetry 08/23/18 08/23/18 08/23/18 10:15 10:30 10:34 Temperature Pulse Rate 76 81 77 Pulse Rate [ Anterior Bilateral Throughout] Respiratory 13 17 Rate Respiratory Rate [Anterior Bilateral Throughout] Respiratory Rate [Left Lower Abdomen] Blood Pressure 128/56 140/56 140/56 O2 Sat by Pulse 98 100 Oximetry 08/23/18 08/23/18 08/23/18 10:45 11:00 11:15 Temperature Pulse Rate 77 84 78 Pulse Rate [ Anterior Bilateral Throughout] Respiratory 17 29 H 29 H Rate Respiratory Rate [Anterior Bilateral Throughout] Respiratory Rate [Left Lower Abdomen] Blood Pressure 130/53 116/44 121/40 O2 Sat by Pulse 100 100 100 Oximetry 08/23/18 08/23/18 08/23/18 11:21 11:30 11:45 Temperature Pulse Rate 76 76 71 Pulse Rate [ Anterior Bilateral Throughout] Respiratory 25 H 26 H Rate Respiratory Rate [Anterior Bilateral Throughout] Respiratory Rate [Left Lower Abdomen] Blood Pressure 121/40 111/36 104/43 O2 Sat by Pulse 100 100 100 Oximetry 08/23/18 08/23/18 12:00 12:15 Temperature 99.6 F Pulse Rate 70 71 Pulse Rate [ Anterior Bilateral Throughout] Respiratory 24 21 Rate Respiratory Rate [Anterior Bilateral Throughout] Respiratory Rate [Left Lower Abdomen] Blood Pressure 105/47 107/48 O2 Sat by Pulse 100 99 Oximetry Constitutional: appears uncomfortable, other (elderly looking CF, normocephalic and atraumatic) Eyes: non-icteric ENT: oropharynx moist, other (ETT 23 cm MARTHA) Neck: supple, no lymphadenopathy, no JVD, other (no thyromegaly) Effort: mildly labored Ascultation: Bilateral: diminished breath sounds, rales Percussion: Bilateral: not dull Cardiovascular: regular rate and rhythm Gastrointestinal: normoactive bowel sounds, soft, non-tender, non-distended Integumentary: normal Extremities: no cyanosis, no edema, no ischemia or petechiae Neurologic: non-focal exam (grossly), pupils equal and round, CN II-XII normal, motor strength normal and Psychiatric: other (unable to assess) CBC and BMP: 08/24/18 08:30 08/24/18 08:30 ABG, PT/INR, D-dimer: ABG POC ABG pH 7.306 (7.35-7.45) L 08/23/18 03:59 POC ABG pCO2 38.8 (35-45) 08/23/18 03:59 POC ABG pO2 119 (80-105) H 08/23/18 03:59 POC ABG HCO3 19.3 (22-26 mml/L) 08/23/18 03:59 POC ABG Total CO2 20 (23-27mmol/L) 08/23/18 03:59 POC ABG O2 Sat 98 08/23/18 03:59 PT/INR, D-dimer D-Dimer 2768.33 ng/mlDDU (0-234) H 08/15/18 18:31 Abnormal lab findings: Abnormal Labs 08/15/18 08/15/18 08/15/18 17:52 17:52 17:52 WBC 12.7 H RBC 3.25 L Hgb Hct RDW Plt Count Seg Neuts % (Manual) Lymphocytes % (Manual) 6.0 L Nucleated RBC % Seg Neutrophils # Man Lymphocytes # (Manual) 0.8 L D-Dimer POC ABG pH POC ABG pCO2 POC ABG pO2 VBG pH Sodium Potassium 3.4 L Chloride 94.6 L Carbon Dioxide 17 L BUN 67 H Creatinine 3.5 H Glucose 131 H POC Glucose Hemoglobin A1c Lactic Acid 5.20 H* Calcium 7.6 L Phosphorus AST 887 H ALT 316 H Troponin T C-Reactive Protein Total Protein Albumin 3.1 L Triglycerides LDL Cholesterol Direct HDL Cholesterol Urine WBC (Auto) Salicylates Acetaminophen 08/15/18 08/15/18 08/15/18 18:11 18:19 18:31 WBC RBC Hgb Hct RDW Plt Count Seg Neuts % (Manual) Lymphocytes % (Manual) Nucleated RBC % Seg Neutrophils # Man Lymphocytes # (Manual) D-Dimer 2768.33 H POC ABG pH 7.173 L POC ABG pCO2 47.8 H POC ABG pO2 177 H VBG pH 7.187 L* Sodium Potassium Chloride Carbon Dioxide BUN Creatinine Glucose POC Glucose Hemoglobin A1c Lactic Acid Calcium Phosphorus AST ALT Troponin T C-Reactive Protein Total Protein Albumin Triglycerides LDL Cholesterol Direct HDL Cholesterol Urine WBC (Auto) Salicylates Acetaminophen 08/15/18 08/15/18 08/15/18 18:31 19:14 19:14 WBC RBC Hgb Hct RDW Plt Count Seg Neuts % (Manual) Lymphocytes % (Manual) Nucleated RBC % Seg Neutrophils # Man Lymphocytes # (Manual) D-Dimer POC ABG pH POC ABG pCO2 POC ABG pO2 VBG pH Sodium Potassium Chloride Carbon Dioxide BUN Creatinine Glucose POC Glucose Hemoglobin A1c Lactic Acid 2.70 H* Calcium Phosphorus AST ALT Troponin T 0.454 H* C-Reactive Protein Total Protein Albumin Triglycerides 356 H LDL Cholesterol Direct 4 L HDL Cholesterol 10 L Urine WBC (Auto) Salicylates < 0.3 L Acetaminophen 08/15/18 08/15/18 08/15/18 19:14 19:15 23:09 WBC RBC Hgb Hct RDW Plt Count Seg Neuts % (Manual) Lymphocytes % (Manual) Nucleated RBC % Seg Neutrophils # Man Lymphocytes # (Manual) D-Dimer POC ABG pH POC ABG pCO2 POC ABG pO2 VBG pH Sodium Potassium Chloride Carbon Dioxide BUN Creatinine Glucose POC Glucose Hemoglobin A1c Lactic Acid 3.20 H* Calcium Phosphorus AST ALT Troponin T C-Reactive Protein Total Protein Albumin Triglycerides LDL Cholesterol Direct HDL Cholesterol Urine WBC (Auto) 17.0 H Salicylates Acetaminophen < 5.0 L 08/15/18 08/16/18 08/16/18 23:09 01:41 05:38 WBC RBC 3.07 L Hgb 9.8 L Hct 28.7 L RDW Plt Count Seg Neuts % (Manual) 84.0 H Lymphocytes % (Manual) 6.0 L Nucleated RBC % 4.0 H Seg Neutrophils # Man Lymphocytes # (Manual) 0.5 L D-Dimer POC ABG pH 7.323 L POC ABG pCO2 34.7 L POC ABG pO2 78 L VBG pH Sodium Potassium Chloride Carbon Dioxide BUN Creatinine Glucose POC Glucose Hemoglobin A1c 6.4 H Lactic Acid Calcium Phosphorus AST ALT Troponin T C-Reactive Protein Total Protein Albumin Triglycerides LDL Cholesterol Direct HDL Cholesterol Urine WBC (Auto) Salicylates Acetaminophen 08/16/18 08/16/18 08/17/18 05:38 22:43 03:42 WBC RBC Hgb Hct RDW Plt Count Seg Neuts % (Manual) Lymphocytes % (Manual) Nucleated RBC % Seg Neutrophils # Man Lymphocytes # (Manual) D-Dimer POC ABG pH POC ABG pCO2 POC ABG pO2 VBG pH Sodium Potassium 2.9 L* 3.1 L 2.9 L* Chloride 108.8 H 111.9 H Carbon Dioxide 17 L 19 L 21 L BUN 62 H 40 H 33 H Creatinine 2.0 H Glucose 139 H 145 H POC Glucose Hemoglobin A1c Lactic Acid Calcium 7.8 L 8.3 L Phosphorus 1.50 L AST 619 H ALT 353 H Troponin T C-Reactive Protein Total Protein 6.1 L Albumin 2.8 L Triglycerides LDL Cholesterol Direct HDL Cholesterol Urine WBC (Auto) Salicylates Acetaminophen 08/17/18 08/17/18 08/18/18 11:02 16:42 03:28 WBC RBC Hgb Hct RDW Plt Count Seg Neuts % (Manual) Lymphocytes % (Manual) Nucleated RBC % Seg Neutrophils # Man Lymphocytes # (Manual) D-Dimer POC ABG pH 7.483 H 7.499 H POC ABG pCO2 POC ABG pO2 VBG pH Sodium 147 H Potassium 3.2 L Chloride 115.8 H Carbon Dioxide BUN 23 H Creatinine Glucose 121 H POC Glucose Hemoglobin A1c Lactic Acid Calcium 8.1 L Phosphorus 2.30 L D AST ALT Troponin T C-Reactive Protein Total Protein Albumin Triglycerides LDL Cholesterol Direct HDL Cholesterol Urine WBC (Auto) Salicylates Acetaminophen 08/18/18 08/18/18 08/18/18 04:10 13:39 13:39 WBC RBC Hgb Hct RDW Plt Count Seg Neuts % (Manual) Lymphocytes % (Manual) Nucleated RBC % Seg Neutrophils # Man Lymphocytes # (Manual) D-Dimer POC ABG pH POC ABG pCO2 POC ABG pO2 VBG pH Sodium 147 H Potassium 3.3 L Chloride 111.9 H Carbon Dioxide BUN 21 H Creatinine Glucose 113 H POC Glucose Hemoglobin A1c Lactic Acid Calcium Phosphorus 1.50 L D AST ALT Troponin T 0.317 H* D C-Reactive Protein 10.70 H Total Protein Albumin Triglycerides LDL Cholesterol Direct HDL Cholesterol Urine WBC (Auto) Salicylates Acetaminophen 08/18/18 08/19/18 08/19/18 16:51 03:47 04:15 WBC RBC Hgb Hct RDW Plt Count Seg Neuts % (Manual) Lymphocytes % (Manual) Nucleated RBC % Seg Neutrophils # Man Lymphocytes # (Manual) D-Dimer POC ABG pH 7.454 H 7.482 H POC ABG pCO2 POC ABG pO2 65 L VBG pH Sodium 154 H Potassium 3.3 L Chloride 115.1 H Carbon Dioxide BUN 19 H Creatinine Glucose 117 H POC Glucose Hemoglobin A1c Lactic Acid Calcium 7.8 L Phosphorus AST ALT Troponin T C-Reactive Protein Total Protein Albumin Triglycerides LDL Cholesterol Direct HDL Cholesterol Urine WBC (Auto) Salicylates Acetaminophen 08/19/18 08/20/18 08/20/18 16:18 03:51 05:25 WBC RBC Hgb Hct RDW Plt Count Seg Neuts % (Manual) Lymphocytes % (Manual) Nucleated RBC % Seg Neutrophils # Man Lymphocytes # (Manual) D-Dimer POC ABG pH 7.483 H POC ABG pCO2 33.4 L POC ABG pO2 51 L 74 L VBG pH Sodium 146 H D Potassium Chloride 111.2 H Carbon Dioxide BUN 24 H Creatinine Glucose 141 H POC Glucose Hemoglobin A1c Lactic Acid Calcium 8.1 L Phosphorus AST 65 H ALT 104 H Troponin T C-Reactive Protein Total Protein 6.2 L Albumin 2.6 L Triglycerides LDL Cholesterol Direct HDL Cholesterol Urine WBC (Auto) Salicylates Acetaminophen 08/21/18 08/21/18 08/21/18 03:54 05:45 05:45 WBC 24.1 H RBC 2.83 L Hgb 8.8 L Hct 26.7 L RDW 15.7 H Plt Count 127 L Seg Neuts % (Manual) 94.0 H Lymphocytes % (Manual) 4.0 L Nucleated RBC % 1.0 H Seg Neutrophils # Man 22.7 H Lymphocytes # (Manual) 1.0 L D-Dimer POC ABG pH POC ABG pCO2 31.9 L POC ABG pO2 66 L VBG pH Sodium Potassium 3.5 L Chloride 109.4 H Carbon Dioxide 21 L BUN 50 H Creatinine 2.0 H D Glucose 144 H POC Glucose Hemoglobin A1c Lactic Acid Calcium 7.6 L Phosphorus AST ALT Troponin T C-Reactive Protein Total Protein 5.3 L Albumin 2.1 L Triglycerides LDL Cholesterol Direct HDL Cholesterol Urine WBC (Auto) Salicylates Acetaminophen 08/22/18 08/22/18 08/22/18 06:20 06:45 06:45 WBC RBC Hgb Hct RDW Plt Count Seg Neuts % (Manual) Lymphocytes % (Manual) Nucleated RBC % Seg Neutrophils # Man Lymphocytes # (Manual) D-Dimer POC ABG pH POC ABG pCO2 32.9 L POC ABG pO2 VBG pH Sodium Potassium Chloride 112.4 H Carbon Dioxide 20 L BUN 61 H Creatinine 1.9 H Glucose 154 H POC Glucose Hemoglobin A1c Lactic Acid Calcium 7.8 L Phosphorus AST ALT Troponin T C-Reactive Protein Total Protein Albumin Triglycerides 197 H LDL Cholesterol Direct HDL Cholesterol Urine WBC (Auto) Salicylates Acetaminophen 08/22/18 08/22/18 08/23/18 15:29 18:40 03:59 WBC RBC Hgb Hct RDW Plt Count Seg Neuts % (Manual) Lymphocytes % (Manual) Nucleated RBC % Seg Neutrophils # Man Lymphocytes # (Manual) D-Dimer POC ABG pH 7.306 L POC ABG pCO2 POC ABG pO2 119 H VBG pH Sodium Potassium Chloride Carbon Dioxide BUN Creatinine Glucose POC Glucose 169 H Hemoglobin A1c Lactic Acid Calcium Phosphorus AST ALT Troponin T C-Reactive Protein 4.70 H Total Protein Albumin Triglycerides LDL Cholesterol Direct HDL Cholesterol Urine WBC (Auto) Salicylates Acetaminophen 08/23/18 08/23/18 Unknown Unknown WBC 12.1 H RBC 2.29 L Hgb 7.1 L Hct 21.7 L RDW 15.7 H Plt Count 106 L Seg Neuts % (Manual) 92.0 H Lymphocytes % (Manual) 4.0 L Nucleated RBC % Seg Neutrophils # Man 11.1 H Lymphocytes # (Manual) 0.5 L D-Dimer POC ABG pH POC ABG pCO2 POC ABG pO2 VBG pH Sodium Potassium Chloride 115.7 H Carbon Dioxide 21 L BUN 64 H Creatinine 2.0 H Glucose 149 H POC Glucose Hemoglobin A1c Lactic Acid Calcium 7.5 L Phosphorus AST ALT Troponin T C-Reactive Protein Total Protein 4.8 L Albumin 2.0 L Triglycerides LDL Cholesterol Direct HDL Cholesterol Urine WBC (Auto) Salicylates Acetaminophen Chest x-ray: pending Allied health notes reviewed: nursing
[2018-08-23] MEDS: ABELCET IV SCH ×2 (12:37→13:16)
[2018-08-23] MEDS: D5W IV SCH ×2 (12:37→13:16)
[2018-08-23] MEDS: BENADRYL IV SCH (12:37)
[2018-08-23 13:38] LABS: CD4/CD8 Ratio 1.98 (0.86-5.00)
--- NOTE | 2018-08-23 14:14 | Progress Note ---
Assessment and Plan Severe sepsis Blood cultures 08/15 - yeast Sputum culture 08/15 - E.coli and Staph aureus Acute renal failure on admission - resolved Acute respiratory failure - intubated and mechanically ventilated Lactic acidosis on admission - resolved Acute transaminitis on admission Hypernatremia Altered mental status History of COPD New onset cardiomyopathy, LVEF 25-30% this admission Previous echo 03/30/2016 at [facility] revealed normal LVEF Previous stress MPI 03/29/2016 at [facility] revealed no ischemia Abnormal ECG showing LBBB, chronic Recent EGD at [facility] 08/08/2018 revealing irregular Z line, gastritis and small histal hernia Recent colonoscopy at [facility] 08/08/2018 revealing sigmoid polyp, transverse colon polyps, inflamed hemorrhoids and diverticulosis Recommend: Medical therapy for new onset cardiomyopathy when blood pressure allows. Further cardiac workup will depend on clinical course. Subjective Date of service: 08/23/18 Principal diagnosis: Acute hypoxemic hypercapnic Resp failure; AE-COPD; Acute kidney injury Interval history: Patient remains sedated and intubated on the vent. Objective Vital Signs Temp Pulse Pulse Pulse Pulse Resp Resp 08/23/18 13:15 75 27 H 08/23/18 13:00 72 27 H 08/23/18 12:45 72 26 H 08/23/18 12:30 72 22 08/23/18 12:15 71 21 08/23/18 12:00 99.6 F 70 72 24 08/23/18 11:45 71 26 H 08/23/18 11:30 76 25 H 08/23/18 11:21 76 08/23/18 11:15 78 29 H 08/23/18 11:00 84 29 H 08/23/18 10:45 77 17 08/23/18 10:34 77 08/23/18 10:30 81 17 08/23/18 10:15 76 13 08/23/18 10:00 78 22 08/23/18 09:45 76 19 08/23/18 09:30 76 17 08/23/18 09:15 75 21 08/23/18 09:00 71 23 08/23/18 08:45 73 21 08/23/18 08:30 72 19 08/23/18 08:15 71 24 08/23/18 08:00 98.9 F 70 19 08/23/18 07:56 68 25 H 08/23/18 07:45 69 69 22 20 08/23/18 07:33 69 08/23/18 07:30 68 20 08/23/18 07:15 66 17 08/23/18 07:00 64 16 08/23/18 06:45 64 19 08/23/18 06:30 65 19 08/23/18 06:15 67 19 08/23/18 06:01 71 19 08/23/18 05:45 76 17 08/23/18 05:31 74 17 08/23/18 05:15 70 16 08/23/18 05:00 99.7 F H 71 20 08/23/18 04:45 71 20 08/23/18 04:30 72 19 08/23/18 04:15 71 20 08/23/18 04:00 73 19 08/23/18 03:53 73 08/23/18 03:45 72 23 08/23/18 03:31 97.8 F 08/23/18 03:30 73 24 08/23/18 03:15 73 25 H 08/23/18 03:00 74 20 08/23/18 02:45 75 21 08/23/18 02:30 74 22 08/23/18 02:15 73 22 08/23/18 02:09 77 26 H 08/23/18 02:00 73 22 08/23/18 01:54 75 26 H 08/23/18 01:45 74 19 08/23/18 01:30 76 15 08/23/18 01:15 74 16 08/23/18 01:00 76 15 08/23/18 00:45 73 21 08/23/18 00:33 70 08/23/18 00:30 74 31 H 08/23/18 00:15 72 24 08/23/18 00:00 71 25 H 08/22/18 23:47 71 25 H 08/22/18 23:36 71 16 08/22/18 23:30 72 14 08/22/18 23:24 72 22 08/22/18 23:00 72 30 H 08/22/18 22:56 100.5 F H 08/22/18 22:31 72 29 H 08/22/18 22:00 74 28 H 08/22/18 21:31 77 30 H 08/22/18 21:30 76 19 08/22/18 21:00 78 29 H 08/22/18 20:30 79 32 H 08/22/18 20:00 77 26 H 08/22/18 19:57 102.1 F H 08/22/18 19:43 77 28 H 08/22/18 19:30 76 25 H 08/22/18 19:28 75 28 H 08/22/18 19:21 75 08/22/18 19:00 81 30 H 08/22/18 18:30 80 30 H 08/22/18 18:16 92 H 08/22/18 18:00 77 29 H 08/22/18 17:31 86 30 H 08/22/18 17:01 91 H 28 H 08/22/18 16:30 82 32 H 08/22/18 16:00 103.9 F H 78 31 H 08/22/18 15:42 91 H 31 H 08/22/18 15:31 90 33 H 08/22/18 15:30 76 30 H 08/22/18 15:29 76 08/22/18 15:00 79 29 H 08/22/18 14:30 88 31 H Resp BP Pulse Ox 08/23/18 13:15 117/48 98 08/23/18 13:00 112/53 100 08/23/18 12:45 112/56 100 08/23/18 12:30 112/51 100 08/23/18 12:15 107/48 99 08/23/18 12:00 105/47 100 08/23/18 11:45 104/43 100 08/23/18 11:30 111/36 100 08/23/18 11:21 121/40 100 08/23/18 11:15 121/40 100 08/23/18 11:00 116/44 100 08/23/18 10:45 130/53 100 08/23/18 10:34 140/56 08/23/18 10:30 140/56 100 08/23/18 10:15 128/56 98 08/23/18 10:00 25 H 128/56 98 08/23/18 09:45 124/56 100 08/23/18 09:30 129/55 100 08/23/18 09:15 118/58 100 08/23/18 09:00 115/52 100 08/23/18 08:45 117/51 100 08/23/18 08:30 112/50 99 08/23/18 08:15 109/52 100 08/23/18 08:00 105/57 100 08/23/18 07:56 08/23/18 07:45 114/91 100 08/23/18 07:33 114/52 100 08/23/18 07:30 114/52 100 08/23/18 07:15 104/52 08/23/18 07:00 97/46 100 08/23/18 06:45 96/46 100 08/23/18 06:30 89/43 08/23/18 06:15 84/44 100 08/23/18 06:01 97/49 100 08/23/18 05:45 83/44 97 08/23/18 05:31 102/50 99 08/23/18 05:15 119/60 100 08/23/18 05:00 133/62 100 08/23/18 04:45 132/57 99 08/23/18 04:30 128/59 98 08/23/18 04:15 121/51 97 08/23/18 04:00 132/56 100 08/23/18 03:53 140/59 98 08/23/18 03:45 140/59 97 08/23/18 03:31 08/23/18 03:30 137/61 98 08/23/18 03:15 137/59 97 08/23/18 03:00 135/56 98 08/23/18 02:45 137/60 98 08/23/18 02:30 135/59 98 08/23/18 02:15 124/51 98 08/23/18 02:09 08/23/18 02:00 137/59 98 08/23/18 01:54 08/23/18 01:45 152/62 97 08/23/18 01:30 172/72 99 08/23/18 01:15 154/69 98 08/23/18 01:00 164/67 99 08/23/18 00:45 134/63 100 08/23/18 00:33 134/63 08/23/18 00:30 134/63 98 08/23/18 00:15 135/66 98 08/23/18 00:00 130/58 100 08/22/18 23:47 129/58 99 08/22/18 23:36 123/58 100 08/22/18 23:30 123/58 96 08/22/18 23:24 128/56 98 08/22/18 23:00 107/48 97 08/22/18 22:56 08/22/18 22:31 112/36 100 08/22/18 22:00 128/56 96 08/22/18 21:31 129/56 96 08/22/18 21:30 100 08/22/18 21:00 116/53 96 08/22/18 20:30 120/47 94 08/22/18 20:00 111/52 93 08/22/18 19:57 08/22/18 19:43 08/22/18 19:30 120/55 97 08/22/18 19:28 08/22/18 19:21 101/50 97 08/22/18 19:00 111/48 97 08/22/18 18:30 109/46 96 08/22/18 18:16 107/47 98 08/22/18 18:00 100/45 96 08/22/18 17:31 93/42 95 08/22/18 17:01 125/56 96 08/22/18 16:30 125/53 98 08/22/18 16:00 133/61 100 08/22/18 15:42 08/22/18 15:31 08/22/18 15:30 128/56 98 08/22/18 15:29 128/56 98 08/22/18 15:00 112/51 08/22/18 14:30 116/49 94 - Physical Examination General: Other (intubated and sedated) Cardiac: Positive: Reg Rate and Rhythm - Labs and Meds Cardiac Enzymes 08/23/18 Range/Units Unknown AST 26 (5-40) units/L CBC 08/23/18 Range/Units Unknown WBC 12.1 H (4.5-11.0) K/mm3 RBC 2.29 L (3.65-5.03) M/mm3 Hgb 7.1 L (10.1-14.3) gm/dl Hct 21.7 L (30.3-42.9) % Plt Count 106 L (140-440) K/mm3 Comprehensive Metabolic Panel 08/23/18 Range/Units Unknown Sodium 145 (137-145) mmol/L Potassium 3.7 (3.6-5.0) mmol/L Chloride 115.7 H (98-107) mmol/L Carbon Dioxide 21 L (22-30) mmol/L BUN 64 H (7-17) mg/dL Creatinine 2.0 H (0.7-1.2) mg/dL Glucose 149 H (65-100) mg/dL Calcium 7.5 L (8.4-10.2) mg/dL AST 26 (5-40) units/L ALT 22 (7-56) units/L Alkaline Phosphatase 62 (35-129) units/L Total Protein 4.8 L (6.3-8.2) g/dL Albumin 2.0 L (3.9-5) g/dL - Allied health notes Allied health notes reviewed: nursing
[2018-08-23] MEDS: SODIUM BICARBONATE 100 MEQ in D5W 1,000 ML IV SCH (14:57)
[2018-08-23] MEDS: TYLENOL PO PRN (16:11)
[2018-08-24] MEDS: DUONEB *Not for PRN Use IH SCH ×4 (01:30→19:37)
[2018-08-24] MEDS: PULMICORT IH SCH ×2 (07:54→19:37)
[2018-08-24] MEDS: BROVANA NEBU IH SCH ×2 (07:55→19:37)
--- NOTE | 2018-08-24 07:59 | Progress Note ---
Assessment and Plan Cultures: 08/15/2018 blood culture: One set positive for yeast 08/15/2018 sputum culture: MSSA and Escherichia coli, wade susceptible 08/18/2018 blood culture: no growth today 08/18/2018 urine culture: neg A/P: 68-year-old female with COPD, arthritis, history of multiple spinal surgeries was brought to the emergency room on 08/15/2018 with altered mental status: 1) Sepsis: high fever trending down and WBC better. Etio is unclear. Likely fungemia, which did not respond to 2 day-course of initial fluconazole and then 3 day-course micafungin. 2) Fungemia: Blood cultures done on admission growing yeast in one set (per micro it does not look like Camryn or Crypto). Etiology is unclear. Patient without any history of indwelling PICC line, TPN or immunocompromised status. reporting severe explosive diarrhea, N/V before admission after taken 4 days of amoxicillin for dental implant on 07/29/2018 and had a EGD / colonoscopy on 08/08/[address] [facility] [address] Alcantara. I reviewed report mild chronic gastritis, fo jen intestinal metaplasia, squamocolumnar mucosa with mild reflux-type changes, and tubular adenoma. -s/p fluconazole 800 mg loading dose then micafungin, now on amphotericin D3 -serum Crypto negative. -08/15/2018 blood culture: One set positive for yeast (spoke with micro it does not look like Camryn or Crypto) -08/18/2018 blood culture: no growth today -CTA chest showed limited study due to respiratory motion artifact. No evidence of pulmonary embolism. Abnormal bilateral lung consolidation which may represent pulmonary edema or pneumonia. Mild cardiomegaly. Indeterminant mediastinal lymph nodes. -CT abdomen showed extensive bilateral lower lobe pulmonary infiltrates, rectal tube and Dodge catheter noted. NG tube at gastric antrum. Left hip prosthesis Extensive degenerative changes noted lumbar spine -TTE EF 25-30% no vegetations -HIV neg/ CD4 1004 -reviewed CT chest abd done 01/05/2019 showed cholecystectomy, mild fatty liver, postoperative changes of lumbar laminectomy with non specific fluid, 9 mm LLL pulmonary nodule which was compared to previous CT and was stable. 3) Acute renal failure: On admission: Creatinine worsening. Nephrology following. 4) Transaminitis: Likely from shock liver. Better. 5) Bilateral pneumonia: DDx aspiration pneumonia v/s CAP. Causing acute respiratory failure. Chest x-ray shows reticular nodular infiltrates, some of these appear to be chronic and would also present in 2011. CTA chest showed limited study due to respiratory motion artifact. No evidence of pulmonary embolism. Abnormal bilateral lung consolidation which may represent pulmonary edema or pneumonia. Mild cardiomegaly. Indeterminant mediastinal lymph nodes. -Sputum culture 08/15 MSSA and Escherichia coli, wade susceptible 6) Right maxillary sinusitis 7) Acute encephalopathy: Likely multifactorial. CT head unremarkable for acute intracranial process. currently sedated. 8) Recent diarrhea after antibiotics. C diff negative. Reviewed CT abdomen with Dr Stoddard and no evidence of diverticulitis, colitis or abscess Recs: f/u aspegillus antigen and 1,2 beta D glucan via - ordered Continue cefazolin IV renally adjusted to cover MSSA and Escherichia coli D3 Continue amphotericin renally adjusted D3 f/u Repeat blood cultures ordered f/u blood culture 08/15/2018 ID and sensitivity-spoke with [employer] further plate reading will be done today Of note, the RIJ central line will need removal at some point since it was placed during active fungemia Will follow Yasmin Alvarez MD Infectious Diseases [employer] [facility] [phone] Subjective Date of service: 08/24/18 Principal diagnosis: Acute hypoxemic hypercapnic Resp failure; AE-COPD; Acute kidney injury Interval history: Remains intubated fiO2 35%, p 8, on light sedative, alert, following commands, no pressors, tmax 102.7 yesterday. ROS: unable to obtain Objective - Exam Narrative Exam: Constitutional: alert open eyes, intubated fiO2 35%, p8 Head, Ears, Nose: Normocephalic, atraumatic. External ears, nose normal Eyes: Conjunctivae/corneas clear. No icterus. No ptosis. Neck: Supple, no meningeal signs Oral: +ETT Cardiovascular: irreg Respiratory: gonzalez rhonchi GI: Soft, non-tender; bowel sounds normal. No peritoneal signs Musculoskeletal: No pedal edema, no cyanosis. Skin: No rash or abscess Hem/Lymphatic: No palpable cervical or supraclavicular nodes. No lymphangitis Psych: no agitation Neurological: alert follows commands Rectal tube with diarrhea - Constitutional Vitals: Vital Signs Temp Pulse Resp BP Pulse Ox 99.7 F H 80 21 144/66 95 08/24/18 04:00 08/24/18 06:15 08/24/18 06:15 08/24/18 06:15 08/24/18 06:15 Temperature -Last 24 Hours Temperature 99.7 F Temperature 100.0 F Temperature 100.6 F Temperature 101.6 F Temperature 102.7 F Temperature 99.6 F Temperature 99.6 F Temperature 98.9 F - Labs CBC & Chem 7: 08/23/18 Unknown 08/23/18 Unknown Labs: Abnormal lab results 08/19/18 08/23/18 08/23/18 Range/Units 14:32 21:19 Unknown Seg Neuts % (Manual) 92.0 H (40.0-70.0) % Lymphocytes % (Manual) 4.0 L (13.4-35.0) % Seg Neutrophils # Man 11.1 H (1.8-7.7) K/mm3 Lymphocytes # (Manual) 0.5 L (1.2-5.4) K/mm3 POC ABG pCO2 31.3 L (35-45) POC ABG pO2 75 L (80-105) % CD3 Cells 44 L (57-85) % % CD19 Cells 41 H (6-29) % Absolute CD19 Count 1290 H (110-660) cells/uL 08/24/18 Range/Units 04:18 Seg Neuts % (Manual) (40.0-70.0) % Lymphocytes % (Manual) (13.4-35.0) % Seg Neutrophils # Man (1.8-7.7) K/mm3 Lymphocytes # (Manual) (1.2-5.4) K/mm3 POC ABG pCO2 (35-45) POC ABG pO2 78 L (80-105) % CD3 Cells (57-85) % % CD19 Cells (6-29) % Absolute CD19 Count (110-660) cells/uL
[2018-08-24 09:03] LABS: Hematocrit 21.1 % (30.3-42.9); Mean Corpuscular HGB Conc 33 % (30-34); Mean Corpuscular Volume 94 fl (79-97); Platelet Count 148 K/mm3 (140-440); Red Blood Count 2.24 M/mm3 (3.65-5.03)
--- NOTE | 2018-08-24 09:06 | Progress Note ---
Assessment and Plan Assessment and plan: --Acute hypoxic hypercapnic respiratory failure; intubated on ventilatory support nebulizers, IV antibiotics, supportive care wean as tolerated and extubate, pulmonary following --Aspiration pneumonia; continue Rocephin and Flagyl Patient is also on Diflucan, ID following Follow-up chest x-ray; no improvement of pneumonia --Hypertension; continue current antihypertensives Added hydralazine 25mg 8 hours a day,PRN meds --Anemia; hemoglobin today 7.1[baseline 10.3 ] Gradual drop, no external evidence of bleeding Closely monitor, stool for occult blood --Persistent fever; secondary to severe sepsis Afebrile this morning, 24-hour MAXIMUM TEMPERATURE 102 continue current antibiotics ID following --Sepsis; secondary to aspiration pneumonia, continue current antibiotics Follow cultures, ID following --Hypernatremia; free water flushes, improved Closely monitor electrolytes, trending down --Hypokalemia; replace with KCl, follow electrolytes --Severe malnutrition/hypoalbuminemia; Nutrition consults and supportive care --Acute kidney injury; probably secondary to ATN avoid nephrotoxins, Nephrology following ----Acute systolic congestive heart failure; Ejection fraction 25-30%, continue current management Cardiology following --Elevated Transaminases; possible congested liver Levels trending down, check acute hepatitis panel Consider GI evaluation if needed --DVT prophylaxis; Lovenox Consults and recommendations noted and appreciated Plan of care reviewed with the patient's nurse Patient is critically ill with poor prognosis The high probability of a clinically significant, sudden or life threatening deterioration of the [respiratory, cardiology, ID, renal and metabolic] system(s) required my full and direct attention, intervention and personal management. The aggregate critical care time was [31] minutes. This time is in addition to time spent performing reported procedures but includes the following: [x] Data Review and interpretation [x] Patient assessment and monitoring of vital signs [x] Documentation [x] Medication orders and management History Interval history: Patient seen and examined medical records reviewed Patient remains intubated on ventilatory support Afebrile this morning MAXIMUM TEMPERATURE last 24 hours-102 Intubated on ventilatory support Vital signs noted Hospitalist Physical - Constitutional Vitals: Temp Pulse Resp BP Pulse Ox 99.5 F 90 30 H 174/72 100 08/24/18 08:00 08/24/18 08:10 08/24/18 08:10 08/24/18 07:55 08/24/18 07:55 General appearance: Present: no acute distress, well-nourished, other (intubated on ventilatory support, sedated) - EENT Eyes: Present: PERRL, EOM intact - Neck Neck: Present: supple, normal ROM - Respiratory Respiratory effort: normal Respiratory: bilateral: diminished, rhonchi, negative: rales, wheezing - Cardiovascular Rhythm: regular Heart Sounds: Present: S1 & S2 - Extremities Extremities: no ischemia, No edema - Abdominal General gastrointestinal: soft, non-tender, non-distended, normal bowel sounds - Integumentary Integumentary: Present: clear, warm - Psychiatric Psychiatric: other (intubated on vent) - Neurologic Neurologic: other (intubated on vent) Results - Labs CBC & Chem 7: 08/24/18 08:30 08/24/18 08:30 Labs: Laboratory Last Values WBC 12.1 K/mm3 (4.5-11.0) H 08/23/18 Unknown RBC 2.29 M/mm3 (3.65-5.03) L 08/23/18 Unknown Hgb 7.1 gm/dl (10.1-14.3) L 08/23/18 Unknown Hct 21.7 % (30.3-42.9) L 08/23/18 Unknown MCV 95 fl (79-97) 08/23/18 Unknown MCH 31 pg (28-32) 08/23/18 Unknown MCHC 33 % (30-34) 08/23/18 Unknown RDW 15.7 % (13.2-15.2) H 08/23/18 Unknown Plt Count 106 K/mm3 (140-440) L 08/23/18 Unknown Add Manual Diff Complete 08/23/18 Unknown Total Counted 100 08/23/18 Unknown Seg Neuts % (Manual) 92.0 % (40.0-70.0) H 08/23/18 Unknown Band Neutrophils % 0 % 08/23/18 Unknown Lymphocytes % (Manual) 4.0 % (13.4-35.0) L 08/23/18 Unknown Reactive Lymphs % (Man) 0 % 08/23/18 Unknown Monocytes % (Manual) 2.0 % (0.0-7.3) 08/23/18 Unknown Eosinophils % (Manual) 0 % (0.0-4.3) 08/23/18 Unknown Basophils % (Manual) 0 % (0.0-1.8) 08/23/18 Unknown Metamyelocytes % 2.0 % 08/23/18 Unknown Myelocytes % 0 % 08/23/18 Unknown Promyelocytes % 0 % 08/23/18 Unknown Blast Cells % 0 % 08/23/18 Unknown Nucleated RBC % Not Reportable 08/23/18 Unknown Seg Neutrophils # Man 11.1 K/mm3 (1.8-7.7) H 08/23/18 Unknown Band Neutrophils # 0.0 K/mm3 08/23/18 Unknown Abs Lymphs (Manual) 3262 cells/uL (850-3900) 08/19/18 14:32 Lymphocytes # (Manual) 0.5 K/mm3 (1.2-5.4) L 08/23/18 Unknown Abs React Lymphs (Man) 0.0 K/mm3 08/23/18 Unknown Monocytes # (Manual) 0.2 K/mm3 (0.0-0.8) 08/23/18 Unknown Eosinophils # (Manual) 0.0 K/mm3 (0.0-0.4) 08/23/18 Unknown Basophils # (Manual) 0.0 K/mm3 (0.0-0.1) 08/23/18 Unknown Metamyelocytes # 0.2 K/mm3 08/23/18 Unknown Myelocytes # 0.0 K/mm3 08/23/18 Unknown Promyelocytes # 0.0 K/mm3 08/23/18 Unknown Blast Cells # 0.0 K/mm3 08/23/18 Unknown WBC Morphology Not Reportable 08/23/18 Unknown Hypersegmented Neuts Not Reportable 08/23/18 Unknown Hyposegmented Neuts Not Reportable 08/23/18 Unknown Hypogranular Neuts Not Reportable 08/23/18 Unknown Smudge Cells Not Reportable 08/23/18 Unknown Toxic Granulation Not Reportable 08/23/18 Unknown Toxic Vacuolation Not Reportable 08/23/18 Unknown Dohle Bodies Not Reportable 08/23/18 Unknown Pelger-Huet Anomaly Not Reportable 08/23/18 Unknown Rosy Rods Not Reportable 08/23/18 Unknown Platelet Estimate Cons 08/23/18 Unknown Clumped Platelets Not Reportable 08/23/18 Unknown Plt Clumps, EDTA Not Reportable 08/23/18 Unknown Large Platelets Not Reportable 08/23/18 Unknown Giant Platelets Not Reportable 08/23/18 Unknown Platelet Satelliting Not Reportable 08/23/18 Unknown Plt Morphology Comment Not Reportable 08/23/18 Unknown RBC Morphology Not Reportable 08/23/18 Unknown Dimorphic RBCs Not Reportable 08/23/18 Unknown Polychromasia Not Reportable 08/23/18 Unknown Hypochromasia Not Reportable 08/23/18 Unknown Poikilocytosis Not Reportable 08/23/18 Unknown Anisocytosis 1+ 08/23/18 Unknown Microcytosis Not Reportable 08/23/18 Unknown Macrocytosis Not Reportable 08/23/18 Unknown Spherocytes Not Reportable 08/23/18 Unknown Pappenheimer Bodies Not Reportable 08/23/18 Unknown Sickle Cells Not Reportable 08/23/18 Unknown Target Cells Not Reportable 08/23/18 Unknown Tear Drop Cells Not Reportable 08/23/18 Unknown Ovalocytes Not Reportable 08/23/18 Unknown Helmet Cells Not Reportable 08/23/18 Unknown [place] Bodies Not Reportable 08/23/18 Unknown [place] Rings Not Reportable 08/23/18 Unknown [place] Cells Not Reportable 08/23/18 Unknown Bite Cells Not Reportable 08/23/18 Unknown Crenated Cell Not Reportable 08/23/18 Unknown Elliptocytes Not Reportable 08/23/18 Unknown Acanthocytes (Spur) Not Reportable 08/23/18 Unknown Rouleaux Not Reportable 08/23/18 Unknown Hemoglobin C Crystals Not Reportable 08/23/18 Unknown Schistocytes Not Reportable 08/23/18 Unknown Malaria parasites Not Reportable 08/23/18 Unknown Ceasar Bodies Not Reportable 08/23/18 Unknown Hem Pathologist Commnt No 08/23/18 Unknown D-Dimer 2768.33 ng/mlDDU (0-234) H 08/15/18 18:31 POC ABG pH 7.414 (7.35-7.45) 08/24/18 04:18 POC ABG pCO2 31.3 (35-45) L 08/23/18 21:19 POC ABG pO2 78 (80-105) L 08/24/18 04:18 POC ABG HCO3 18.9 (22-26 mml/L) 08/24/18 04:18 POC ABG Total CO2 20 (23-27mmol/L) 08/24/18 04:18 POC ABG O2 Sat 96 08/24/18 04:18 POC ABG Base Excess -6 ((-2) - (+3)mmol/L) 08/24/18 04:18 VBG pH 7.187 (7.320-7.420) L* 08/15/18 18:19 FiO2 40 % 08/24/18 04:18 Sodium 145 mmol/L (137-145) 08/23/18 Unknown Potassium 3.7 mmol/L (3.6-5.0) 08/23/18 Unknown Chloride 115.7 mmol/L (98-107) H 08/23/18 Unknown Carbon Dioxide 21 mmol/L (22-30) L 08/23/18 Unknown Anion Gap 12 mmol/L 08/23/18 Unknown BUN 64 mg/dL (7-17) H 08/23/18 Unknown Creatinine 2.0 mg/dL (0.7-1.2) H 08/23/18 Unknown Estimated GFR 25 ml/min 08/23/18 Unknown BUN/Creatinine Ratio 32 % 08/23/18 Unknown Glucose 149 mg/dL (65-100) H 08/23/18 Unknown POC Glucose 169 (70-105) H 08/22/18 18:40 Hemoglobin A1c 6.4 % (4-6) H 08/15/18 23:09 Lactic Acid 1.20 mmol/L (0.7-2.0) 08/22/18 15:29 Calcium 7.5 mg/dL (8.4-10.2) L 08/23/18 Unknown Phosphorus 4.30 mg/dL (2.5-4.5) 08/23/18 Unknown Magnesium 2.20 mg/dL (1.7-2.3) 08/23/18 Unknown Total Bilirubin 0.20 mg/dL (0.1-1.2) 08/23/18 Unknown AST 26 units/L (5-40) 08/23/18 Unknown ALT 22 units/L (7-56) 08/23/18 Unknown Alkaline Phosphatase 62 units/L (35-129) 08/23/18 Unknown Troponin T 0.317 ng/mL (0.00-0.029) H* D 08/18/18 13:39 C-Reactive Protein 4.70 mg/dL (0.00-1.30) H 08/22/18 15:29 Total Protein 4.8 g/dL (6.3-8.2) L 08/23/18 Unknown Albumin 2.0 g/dL (3.9-5) L 08/23/18 Unknown Albumin/Globulin Ratio 0.7 % 08/23/18 Unknown Triglycerides 197 mg/dL (2-149) H 08/22/18 06:45 Cholesterol 87 mg/dL (50-199) 08/15/18 18:31 LDL Cholesterol Direct 4 mg/dL (50-130) L 08/15/18 18:31 HDL Cholesterol 10 mg/dL (40-59) L 08/15/18 18:31 Cholesterol/HDL Ratio 8.70 % 08/15/18 18:31 Urine Color Rosemarie (Yellow) 08/15/18 19:15 Urine Turbidity Cloudy (Clear) 08/15/18 19:15 Urine pH 5.0 (5.0-7.0) 08/15/18 19:15 Ur Specific Adel 1.025 (1.003-1.030) 08/15/18 19:15 Urine Protein 30 mg/dl mg/dL (Negative) 08/15/18 19:15 Urine Glucose (UA) Neg mg/dL (Negative) 08/15/18 19:15 Urine Ketones Neg mg/dL (Negative) 08/15/18 19:15 Urine Blood Mod (Negative) 08/15/18 19:15 Urine Nitrite Neg (Negative) 08/15/18 19:15 Urine Bilirubin Neg (Negative) 08/15/18 19:15 Urine Urobilinogen 2.0 mg/dL (<2.0) 08/15/18 19:15 Ur Leukocyte Esterase Mod (Negative) 08/15/18 19:15 Urine WBC (Auto) 17.0 /HPF (0.0-6.0) H 08/15/18 19:15 Urine RBC (Auto) 5.0 /HPF (0.0-6.0) 08/15/18 19:15 Urine WBC Clumps 2+ /HPF 08/15/18 19:15 Amorphous Crystals 1+ 08/15/18 19:15 Hyaline Casts 54 /LPF 08/15/18 19:15 Granular Casts 14 /LPF 08/15/18 19:15 Urine Mucus Few /HPF 08/15/18 19:15 Salicylates < 0.3 mg/dL (2.8-20.0) L 08/15/18 19:14 Urine Opiates Screen Presumptive positive 08/15/18 19:15 Urine Methadone Screen Presumptive negative 08/15/18 19:15 Acetaminophen < 5.0 ug/mL (10.0-30.0) L 08/15/18 19:14 Ur Barbiturates Screen Presumptive negative 08/15/18 19:15 Ur Phencyclidine Scrn Presumptive negative 08/15/18 19:15 Ur Amphetamines Screen Presumptive negative 08/15/18 19:15 U Benzodiazepines Scrn Presumptive negative 08/15/18 19:15 Urine Cocaine Screen Presumptive negative 08/15/18 19:15 U Marijuana (THC) Screen Presumptive negative 08/15/18 19:15 Drugs of Abuse Note Disclamer 08/15/18 19:15 Lymph Enumerat CD4/CD8 1.98 (0.86-5.00) 08/19/18 14:32 % CD3 Cells 44 % (57-85) L 08/19/18 14:32 Absolute CD3 Count 1451 cells/uL (840-3060) 08/19/18 14:32 % CD4 Cells 30 % (30-61) 08/19/18 14:32 Absolute CD4 Count 1004 cells/uL (490-1740) 08/19/18 14:32 % CD8 Cells 15 % (12-42) 08/19/18 14:32 Absolute CD8 Count 508 cells/uL (180-1170) 08/19/18 14:32 % CD19 Cells 41 % (6-29) H 08/19/18 14:32 Absolute CD19 Count 1290 cells/uL (110-660) H 08/19/18 14:32 C. difficile Toxin A&B Negative (Negative) 08/19/18 14:00 HIV 1&2 Antibody Rapid Non react (Non React) 08/18/18 13:39 HIV P24 Antigen Non react (Non React) 08/18/18 13:39 Active Medications - Current Medications Current Medications: Generic Name Dose Route Start Last Admin Trade Name Freq PRN Reason Stop Dose Admin Acetaminophen 650 mg 08/15/18 22:12 08/23/18 16:11 Tylenol PO 650 mg Q4H PRN Administration Pain MILD(1-3)/Fever >100.5/MONDRAGON Acetaminophen 650 mg 08/16/18 17:01 08/16/18 17:11 Tylenol ND 650 mg Q4H PRN Administration Pain, Mild (1-3) Albuterol 2.5 mg 08/17/18 17:00 Proventil IH Q3HRT PRN Shortness Of Breath Albuterol/Ipratropium 1 ampul 08/20/18 14:00 08/24/18 07:55 Duoneb *Not For Prn Use* IH 1 ampul Q6HRT LAMAR Administration Lipase/Protease/Amylase 1 each 08/17/18 15:55 Pancresam Elizabeth 10,500 Unit FEEDTUBE PRN PRN For Clogged Feeding Tube Arformoterol Tartrate 15 mcg 08/18/18 20:00 08/24/18 07:55 Brovana Nebu IH 15 mcg Q12HRT LAMAR Administration Budesonide 0.5 mg 08/18/18 20:00 08/24/18 07:54 Pulmicort IH 0.5 mg Q12HRT LAMAR Administration Carvedilol 6.25 mg 08/15/18 22:45 08/23/18 22:17 Coreg PO 6.25 mg BID LAMAR Administration Diphenhydramine HCl 25 mg 08/22/18 11:30 08/23/18 12:37 Benadryl IV 25 mg Q24H LAMAR Administration Duloxetine HCl 60 mg 08/16/18 10:00 08/23/18 10:41 Cymbalta PO 60 mg QDAY LAMAR Administration Famotidine 20 mg 08/21/18 10:00 08/23/18 10:41 Pepcid PO 20 mg DAILY LAMAR Administration Fentanyl 50 mcg 08/15/18 21:55 08/17/18 13:36 Sublimaze IV 50 mcg Q10MIN PRN Administration ANALGESIA Hydralazine HCl 10 mg 08/19/18 13:59 08/19/18 15:06 Apresoline IV 10 mg Q3H PRN Administration Hydralazine HCl 25 mg 08/24/18 14:00 Apresoline PO Q8HR LAMAR Hydrophilic Ointment 1 applic 08/15/18 21:55 Vaseline Lip Therapy TP Q2HR PRN Dry Lips Fentanyl Citrate 2,000 mcg in 100 mls @ 4.082 mls/hr 08/15/18 22:00 08/24/18 02:11 Fentanyl Drip Premix IV 1 mcg/kg/hr TITR LAMAR 4.082 mls/hr Titration Protocol 1 MCG/KG/HR Propofol 1,000 mg in 100 mls @ 2.449 mls/hr 08/15/18 21:15 08/23/18 19:25 Diprivan 10 Mg/Ml IV 0 mcg/kg/min TITR LAMAR 0 mls/hr Titration Protocol 5 MCG/KG/MIN Norepinephrine 4 mg in 250 mls @ 7.5 mls/hr 08/17/18 20:00 08/22/18 06:00 Levophed Drip 4 Mg/Ns 250 Ml IV 0 mcg/min TITR LAMAR 0 mls/hr Titration Protocol 2 MCG/MIN Cefazolin Sodium 2 gm/ Sodium 100 mls @ 100 mls/hr 08/22/18 12:00 08/23/18 22:24 Chloride IV 100 mls/hr Q12HR LAMAR Administration Amphotericin B 400 mg/ 580 mls @ 250 mls/hr 08/22/18 12:00 08/23/18 13:16 Dextrose IV 250 mls/hr Q24H LAMAR Administration Sodium Chloride 1,000 mls @ 50 mls/hr 08/22/18 12:00 Nacl 0.9% 1000 Ml IV DIRECT LAMAR Sodium Bicarbonate 100 meq/ 1,100 mls @ 50 mls/hr 08/23/18 14:00 08/23/18 14:57 Dextrose IV 08/25/18 11:59 50 mls/hr DIRECT LAMAR Administration Metoclopramide HCl 5 mg 08/15/18 22:50 Reglan IV Q6H PRN Nausea And Vomiting Ondansetron HCl 4 mg 08/15/18 22:12 Zofran IV Q8H PRN Nausea And Vomiting Quetiapine Fumarate 200 mg 08/22/18 12:00 08/23/18 22:17 Seroquel PO 200 mg BID LAMAR Administration Simple Syrup 15 ml 08/17/18 15:55 Simple Syrup FEEDTUBE PRN PRN Hypoglycemia Simple Syrup 30 ml 08/17/18 15:55 Simple Syrup FEEDTUBE PRN PRN Hypoglycemia Sodium Bicarbonate 325 mg 08/17/18 15:55 Sodium Bicarbonate FEEDTUBE PRN PRN For Clogged Feeding Tube Sodium Chloride 10 ml 08/16/18 10:00 08/23/18 22:23 Sodium Chloride Flush Syringe 10 Ml IV 10 ml BID LAMAR Administration Sodium Chloride 10 ml 08/15/18 22:12 08/18/18 21:52 Sodium Chloride Flush Syringe 10 Ml IV 10 ml PRN PRN Administration LINE FLUSH Nutrition/Malnutrition Assess - Dietary Evaluation Nutrition/Malnutrition Findings: Nutrition Notes Start: 08/17/18 13:57 Freq: Status: Active Protocol: Document 08/19/18 12:05 RD (Rec: 08/19/18 13:19 RD [email or web address]) Co-Sign 08/19/18 12:05 OL Nutrition Notes Initial or Follow up Reassessment Current Diagnosis Acute Kidney Injury,COPD, Diabetes,Sepsis,Hypertension, Respiratory Failure, Hyperlipidemia Other Pertinent Diagnosis AMS, hypokalemia, NSTEMI, encephalopathy, pneu, hypernatermia, shock liver Current Diet Vital AF 1.2 at 60mL/hr Labs/Tests Na 154 K 3.3 Cl 115 BUN 19 Pertinent Medications Propofol Height 5 ft 7 in Weight 84.6 kg Dora Body Weight (kg) 61.36 BMI 29.2 Subjective/Other Information Per RN, pt tolerating TF well. TF running at goal rate. #1 Nutrition Diagnosis Inadequate oral intake Diagnosis Progress(for reassessment Continues documentation) Is patient on ventilator? Yes Is Patient Ambulatory and/or Out of Bed No REE-([facility]-confined to bed) [phone] Calculation Used for Recommendations [facility] Additional Notes Protein needs: (1.2-2g/kg) 97- 162g/day Fluid needs: 1ml/kcal Nutrition Intervention Change Diet Order: TF Nutrition Support: Vital AF 1.2 at 60mL/hr with 150mL flush q4h. Kcal 1,728 Protein (gm) 108 Fluid (mL) 1,168 Goal #1 Tolerate TF Goal #2 Meet at least 75% of nutrient needs via TF Anticipated Discharge Needs: Unable to determine at this time Follow-Up By: 08/24/18 Additional Comments f/u: stable TF, Na labs
[2018-08-24 09:27] LABS: Albumin 2.2 g/dL (3.9-5); Calcium 7.7 mg/dL (8.4-10.2)
[2018-08-24] MEDS: fentaNYL DRIP Premix 2,000 MCG/100 ML BAG IV SCH ×2 (09:30→21:29)
[2018-08-24] MEDS: PEPCID PO SCH (09:32)
[2018-08-24] MEDS: COREG PO SCH ×2 (09:32→21:32)
--- NOTE | 2018-08-24 09:35 | Progress Note ---
Assessment and Plan 1. Acute kidney injury: Recurrent vasomotor CHANDANA. Recent increase in the creatinine is likely due to sepsis / hypotension. Creatinine leveled off. Continue IV fluids. Monitor renal function. Renal prognosis is guarded. Avoid nephrotoxic agents. Meds dosage based on GFR. 2. FEN: Hypokalemia, monitor and replete. Hypernatremia, improved. Metabolic acidosis, monitor. 3. Acute encephalopathy. 4. Respiratory failure: On vent. 5. Sepsis: Fungemia. Followed by ID. 6. Dilated cardiomyopathy with systolic LV dysfunction. Subjective Date of service: 08/24/18 Principal diagnosis: Acute hypoxemic hypercapnic Resp failure; AE-COPD; Acute kidney injury Interval history: Patient was seen and examined at the bedside. Objective - Vital Signs Vital signs: Vital Signs - 12hr 08/23/18 08/23/18 08/23/18 21:45 22:00 22:15 Temperature Pulse Rate 79 76 78 Pulse Rate [ Anterior Bilateral Throughout] Pulse Rate [ Apical] Respiratory 15 19 19 Rate Respiratory Rate [Anterior Bilateral Throughout] Blood Pressure 105/38 101/44 108/45 O2 Sat by Pulse 94 95 97 Oximetry 08/23/18 08/23/18 08/23/18 22:17 22:27 22:30 Temperature Pulse Rate 80 81 82 Pulse Rate [ Anterior Bilateral Throughout] Pulse Rate [ Apical] Respiratory 24 20 Rate Respiratory Rate [Anterior Bilateral Throughout] Blood Pressure 108/45 105/38 91/36 O2 Sat by Pulse 96 97 Oximetry 08/23/18 08/23/18 08/23/18 22:45 23:00 23:15 Temperature Pulse Rate 78 71 68 Pulse Rate [ Anterior Bilateral Throughout] Pulse Rate [ Apical] Respiratory 17 15 18 Rate Respiratory Rate [Anterior Bilateral Throughout] Blood Pressure 81/35 86/35 83/34 O2 Sat by Pulse 98 99 98 Oximetry 08/23/18 08/23/18 08/23/18 23:30 23:35 23:45 Temperature Pulse Rate 67 68 67 Pulse Rate [ Anterior Bilateral Throughout] Pulse Rate [ Apical] Respiratory 15 16 Rate Respiratory Rate [Anterior Bilateral Throughout] Blood Pressure 90/35 83/34 84/35 O2 Sat by Pulse 99 98 99 Oximetry 08/24/18 08/24/18 08/24/18 00:00 00:15 00:30 Temperature 100.0 F H Pulse Rate 68 68 71 Pulse Rate [ Anterior Bilateral Throughout] Pulse Rate [ 69 Apical] Respiratory 14 16 15 Rate Respiratory Rate [Anterior Bilateral Throughout] Blood Pressure 80/31 74/35 74/35 O2 Sat by Pulse 100 98 Oximetry 08/24/18 08/24/18 08/24/18 00:45 01:00 01:15 Temperature Pulse Rate 67 66 65 Pulse Rate [ Anterior Bilateral Throughout] Pulse Rate [ Apical] Respiratory 18 16 17 Rate Respiratory Rate [Anterior Bilateral Throughout] Blood Pressure 87/32 90/31 76/29 O2 Sat by Pulse 96 97 97 Oximetry 08/24/18 08/24/18 08/24/18 01:30 01:31 01:45 Temperature Pulse Rate 65 64 Pulse Rate [ 64 Anterior Bilateral Throughout] Pulse Rate [ Apical] Respiratory 17 21 Rate Respiratory 26 H Rate [Anterior Bilateral Throughout] Blood Pressure 83/33 93/36 O2 Sat by Pulse 95 99 Oximetry 08/24/18 08/24/18 08/24/18 01:46 02:00 02:15 Temperature Pulse Rate 66 65 Pulse Rate [ 66 Anterior Bilateral Throughout] Pulse Rate [ Apical] Respiratory 17 16 Rate Respiratory 26 H Rate [Anterior Bilateral Throughout] Blood Pressure 90/36 100/31 O2 Sat by Pulse 100 99 Oximetry 08/24/18 08/24/18 08/24/18 02:30 02:45 03:00 Temperature Pulse Rate 66 66 73 Pulse Rate [ Anterior Bilateral Throughout] Pulse Rate [ Apical] Respiratory 17 14 17 Rate Respiratory Rate [Anterior Bilateral Throughout] Blood Pressure 103/34 98/39 109/46 O2 Sat by Pulse 100 97 Oximetry 08/24/18 08/24/18 08/24/18 03:15 03:30 03:45 Temperature Pulse Rate 76 77 76 Pulse Rate [ Anterior Bilateral Throughout] Pulse Rate [ Apical] Respiratory 16 17 15 Rate Respiratory Rate [Anterior Bilateral Throughout] Blood Pressure 117/48 123/48 131/54 O2 Sat by Pulse 97 95 95 Oximetry 08/24/18 08/24/18 08/24/18 04:00 04:12 04:15 Temperature 99.7 F H Pulse Rate 70 73 76 Pulse Rate [ Anterior Bilateral Throughout] Pulse Rate [ 76 Apical] Respiratory 18 12 Rate Respiratory Rate [Anterior Bilateral Throughout] Blood Pressure 124/58 124/58 124/57 O2 Sat by Pulse 95 99 99 Oximetry 08/24/18 08/24/18 08/24/18 04:30 04:45 05:00 Temperature Pulse Rate 75 77 79 Pulse Rate [ Anterior Bilateral Throughout] Pulse Rate [ Apical] Respiratory 25 H 20 18 Rate Respiratory Rate [Anterior Bilateral Throughout] Blood Pressure 137/69 128/56 138/61 O2 Sat by Pulse 97 98 96 Oximetry 08/24/18 08/24/18 08/24/18 05:15 05:30 05:45 Temperature Pulse Rate 78 81 81 Pulse Rate [ Anterior Bilateral Throughout] Pulse Rate [ Apical] Respiratory 18 20 18 Rate Respiratory Rate [Anterior Bilateral Throughout] Blood Pressure 141/58 137/63 150/65 O2 Sat by Pulse 95 97 95 Oximetry 08/24/18 08/24/18 08/24/18 06:00 06:15 06:30 Temperature Pulse Rate 82 80 81 Pulse Rate [ Anterior Bilateral Throughout] Pulse Rate [ Apical] Respiratory 20 21 23 Rate Respiratory Rate [Anterior Bilateral Throughout] Blood Pressure 152/58 144/66 160/67 O2 Sat by Pulse 95 95 95 Oximetry 08/24/18 08/24/18 08/24/18 06:45 07:00 07:15 Temperature Pulse Rate 84 86 86 Pulse Rate [ Anterior Bilateral Throughout] Pulse Rate [ Apical] Respiratory 18 16 17 Rate Respiratory Rate [Anterior Bilateral Throughout] Blood Pressure 166/61 160/63 166/57 O2 Sat by Pulse 98 95 96 Oximetry 08/24/18 08/24/18 08/24/18 07:30 07:45 07:55 Temperature Pulse Rate 86 89 89 Pulse Rate [ 88 Anterior Bilateral Throughout] Pulse Rate [ Apical] Respiratory 22 12 Rate Respiratory 25 H Rate [Anterior Bilateral Throughout] Blood Pressure 160/67 166/64 174/72 O2 Sat by Pulse 96 96 100 Oximetry 08/24/18 08/24/18 08/24/18 08:00 08:10 08:15 Temperature 99.5 F Pulse Rate 86 91 H Pulse Rate [ 90 Anterior Bilateral Throughout] Pulse Rate [ Apical] Respiratory 25 H 22 Rate Respiratory 30 H Rate [Anterior Bilateral Throughout] Blood Pressure 174/72 172/67 O2 Sat by Pulse 98 95 Oximetry 08/24/18 08/24/18 08/24/18 08:30 08:45 09:01 Temperature Pulse Rate 91 H 93 H 90 Pulse Rate [ Anterior Bilateral Throughout] Pulse Rate [ Apical] Respiratory 18 19 27 H Rate Respiratory Rate [Anterior Bilateral Throughout] Blood Pressure 183/66 175/62 131/68 O2 Sat by Pulse 94 95 98 Oximetry 08/24/18 08/24/18 09:15 09:32 Temperature Pulse Rate 91 H 90 Pulse Rate [ Anterior Bilateral Throughout] Pulse Rate [ Apical] Respiratory 28 H Rate Respiratory Rate [Anterior Bilateral Throughout] Blood Pressure 107/44 102/42 O2 Sat by Pulse 96 Oximetry - General Appearance General appearance: well-developed, appears stated age, intubated, other (on vent) EENT: ATNC, PERRL Neck: supple Respiratory: Present: Clear to Ascultation Cardiology: regular, S1S2, no murmurs Gastrointestinal: normoactive bowel sounds, no tenderness, no distended Integumentary: no rash, warm and dry Neurologic: other (opens eyes) Musculoskeletal: other (trace dependent edema noted) - Lab 08/24/18 08:30 08/24/18 08:30 Most recent lab results Calcium 7.7 mg/dL (8.4-10.2) L 08/24/18 08:30 Phosphorus 4.30 mg/dL (2.5-4.5) 08/23/18 Unknown Magnesium 2.20 mg/dL (1.7-2.3) 08/23/18 Unknown Medications & Allergies - Medications Allergies/Adverse Reactions: Allergies No Known Allergies Allergy (Unverified 08/15/18 16:49) Home Medications: Home Medications Medication Instructions Recorded Confirmed Last Taken Type Carvedilol 6.25 mg PO BID 08/15/18 08/15/18 Unknown History DULoxetine 60 mg PO QDAY 08/15/18 08/15/18 Unknown History Gabapentin 600 mg PO Q6HR PRN 08/15/18 08/15/18 Unknown History Methylphenidate 5 mg PO TID 08/15/18 08/15/18 Unknown History Morphabond ER 60 mg PO Q12HR 08/15/18 08/15/18 Unknown History Pravastatin Sodium 10 mg PO QDAY 08/15/18 08/15/18 Unknown History Tizanidine HCl 4 mg PO Q12HR 08/15/18 08/15/18 Unknown History oxyCODONE /ACETAMINOPHEN 7.5 - 325 mg PO Q8HR 08/15/18 08/15/18 Unknown History Active Medications: Generic Name Dose Route Start Last Admin Trade Name Freq PRN Reason Stop Dose Admin Acetaminophen 650 mg 08/15/18 22:12 08/23/18 16:11 Tylenol PO 650 mg Q4H PRN Administration Pain MILD(1-3)/Fever >100.5/MONDRAGON Acetaminophen 650 mg 08/16/18 17:01 08/16/18 17:11 Tylenol AK 650 mg Q4H PRN Administration Pain, Mild (1-3) Albuterol 2.5 mg 08/17/18 17:00 Proventil IH Q3HRT PRN Shortness Of Breath Albuterol/Ipratropium 1 ampul 08/20/18 14:00 08/24/18 07:55 Duoneb *Not For Prn Use* IH 1 ampul Q6HRT LAMAR Administration Lipase/Protease/Amylase 1 each 08/17/18 15:55 Pancresam Elizabeth 10,500 Unit FEEDTUBE PRN PRN For Clogged Feeding Tube Arformoterol Tartrate 15 mcg 08/18/18 20:00 08/24/18 07:55 Brovana Nebu IH 15 mcg Q12HRT LAMAR Administration Budesonide 0.5 mg 08/18/18 20:00 08/24/18 07:54 Pulmicort IH 0.5 mg Q12HRT LAMAR Administration Carvedilol 6.25 mg 08/15/18 22:45 08/24/18 09:32 Coreg PO 6.25 mg BID LAMAR Administration Diphenhydramine HCl 25 mg 08/22/18 11:30 08/23/18 12:37 Benadryl IV 25 mg Q24H LAMAR Administration Duloxetine HCl 60 mg 08/16/18 10:00 08/23/18 10:41 Cymbalta PO 60 mg QDAY LAMAR Administration Famotidine 20 mg 08/21/18 10:00 08/24/18 09:32 Pepcid PO 20 mg DAILY LAMAR Administration Fentanyl 50 mcg 08/15/18 21:55 08/17/18 13:36 Sublimaze IV 50 mcg Q10MIN PRN Administration ANALGESIA Hydralazine HCl 10 mg 08/19/18 13:59 08/19/18 15:06 Apresoline IV 10 mg Q3H PRN Administration Hydralazine HCl 25 mg 08/24/18 14:00 Apresoline PO Q8HR LAMAR Hydrophilic Ointment 1 applic 08/15/18 21:55 Vaseline Lip Therapy TP Q2HR PRN Dry Lips Fentanyl Citrate 2,000 mcg in 100 mls @ 4.082 mls/hr 08/15/18 22:00 08/24/18 09:30 Fentanyl Drip Premix IV 2 mcg/kg/hr TITR LAMAR 8.165 mls/hr Administration Protocol 1 MCG/KG/HR Propofol 1,000 mg in 100 mls @ 2.449 mls/hr 08/15/18 21:15 08/23/18 19:25 Diprivan 10 Mg/Ml IV 0 mcg/kg/min TITR LAMAR 0 mls/hr Titration Protocol 5 MCG/KG/MIN Norepinephrine 4 mg in 250 mls @ 7.5 mls/hr 08/17/18 20:00 08/22/18 06:00 Levophed Drip 4 Mg/Ns 250 Ml IV 0 mcg/min TITR LAMAR 0 mls/hr Titration Protocol 2 MCG/MIN Cefazolin Sodium 2 gm/ Sodium 100 mls @ 100 mls/hr 08/22/18 12:00 08/23/18 22:24 Chloride IV 100 mls/hr Q12HR LAMAR Administration Amphotericin B 400 mg/ 580 mls @ 250 mls/hr 08/22/18 12:00 08/23/18 13:16 Dextrose IV 250 mls/hr Q24H LAMAR Administration Sodium Chloride 1,000 mls @ 50 mls/hr 08/22/18 12:00 Nacl 0.9% 1000 Ml IV DIRECT LAMAR Sodium Bicarbonate 100 meq/ 1,100 mls @ 50 mls/hr 08/23/18 14:00 08/23/18 14:57 Dextrose IV 08/25/18 11:59 50 mls/hr DIRECT LAMAR Administration Metoclopramide HCl 5 mg 08/15/18 22:50 Reglan IV Q6H PRN Nausea And Vomiting Ondansetron HCl 4 mg 08/15/18 22:12 Zofran IV Q8H PRN Nausea And Vomiting Quetiapine Fumarate 200 mg 08/22/18 12:00 08/24/18 09:32 Seroquel PO 200 mg BID LAMAR Administration Simple Syrup 15 ml 08/17/18 15:55 Simple Syrup FEEDTUBE PRN PRN Hypoglycemia Simple Syrup 30 ml 08/17/18 15:55 Simple Syrup FEEDTUBE PRN PRN Hypoglycemia Sodium Bicarbonate 325 mg 08/17/18 15:55 Sodium Bicarbonate FEEDTUBE PRN PRN For Clogged Feeding Tube Sodium Chloride 10 ml 08/16/18 10:00 08/23/18 22:23 Sodium Chloride Flush Syringe 10 Ml IV 10 ml BID LAMAR Administration Sodium Chloride 10 ml 08/15/18 22:12 08/18/18 21:52 Sodium Chloride Flush Syringe 10 Ml IV 10 ml PRN PRN Administration LINE FLUSH
[2018-08-24] MEDS: ceFAZolin 2 GM in NACL 0.9% 100 ML IV SCH ×2 (09:52→23:06)
[2018-08-24] MEDS: SODIUM CHLORIDE FLUSH SYRINGE 10 ML IV SCH (10:15)
[2018-08-24] MEDS: CYMBALTA PO SCH (10:16)
[2018-08-24 11:05] LABS: Basophils % (Manual) 0 % (0.0-1.8); Eosinophils % (Manual) 0 % (0.0-4.3); Total Cells Counted 100
[2018-08-24 11:06] LABS: Anisocytosis 1+; Platelet Estimate Consistent w Auto
--- NOTE | 2018-08-24 12:23 | Progress Note ---
Assessment and Plan Acute hypoxic-hypercapnic respiratory failure on MVS Acute COPD exacerbation NSTEMI Acute encephalopathy (toxic-metabolic) Thrombocytopenia Hypokalemia Acute kidney injury h/o Chronic Narcotic Dependence Aspiration pneumonia/CAP Hypokalemia GNR in tracheal aspirate Hypernatremia (Prior CXR's suggest chronic/structural lung disease and etiology of fungemia unclear) - continue daily SAT's & SBT's as tolerated - consider surgery evaluation of left hip prosthesis as source of fungemia if persistent - if repeat BC's positive will change IV lines - continue accuchecks q6h and target glycemic control for BG 140 - 180 mg/dl acutely - complete D5W with 2 amps NaHCO3 / l at 75 mls/hr X 2 liters re: metabolic acidosis - keep set rate at 16/min for now - continue seroquel at 200 mg bid (suspect possible element of opiate withdrawal slowly creeping in) - stopped lovenox and sent HIT assay re: acute thrombocytopenia (pending) - continue amphotericin for fungemia - nephrology evaluation ongoing re: CHANDANA in setting of IV contrast and now requiring amphotericin - prn triglyceride levels re: propofol infusion - continue free water for hyperkalemia - cardiology consulted for CHF - follow CD4 count (HIV serologies negative) - continue antiinfectives per ID rec's - continue brovana & pulmicort re: COPD - Continue to Wean supplemental oxygen to keep O2 sats 88-90% (restrictive Oxygen strategies acutely) - continue lung protective strategies - Daily ABGs/CXR for now - VAP bundle addressed - Avoid benzodiazepines, use high dose fentanyl for agitation and analgesia - Sedation target for RASS 0 to -1 - Stress ulcer prophylaxis - VTE prophylaxis - enteral Nutrition as tolerated - VAP bundle addressed - Free water flushes for hypernatremia - Continue bronchodilators with pulmonary hygiene per RT - Maintenance of sleep -wake cycle - Mobility protocol for pressure ulcer prophylaxis as tolerated by hemodynamics - Influenza and pneumonia vaccination per protocol ..care plan discussed at length with family at the bedside ... re-evaluate in am & prn PROGNOSIS :FAIR CONDITION: CRITICAL CODE STATUS: FULL CODE The high probability of a clinically significant, sudden or life-threatening deterioration of the [respiratory, neurology, renal] system(s) required my full and direct attention, intervention and personal management. The aggregate crit ical care time was [34] minutes without overlap. Time includes spent on; [x] Data Review and interpretation [x] Patient assessment and monitoring of vital signs [x] Documentation [x] Medication orders and management Subjective Date of service: 08/24/18 Principal diagnosis: Acute hypoxemic hypercapnic Resp failure; AE-COPD; Acute kidney injury Interval history: Patient is seen today for: Acute hypoxemic - hypercapnic respiratory failure on MVS; Acute COPD exacerbation; Acute encephalopathy (toxic-metabolic); Hypokalemia; Acute kidney injury Seen and examined at bedside; 24hour events reviewed; nursing and respiratory care staff consulted; no adverse overnight events reported to me; resting peacefully in bed; doing better; to begin SBT's as tolerated; remains onMVS; no N/V/F/C and following simple commands Objective Vital Signs - 12hr 08/24/18 08/24/18 08/24/18 00:30 00:45 01:00 Temperature Pulse Rate 71 67 66 Pulse Rate [ Anterior Bilateral Throughout] Pulse Rate [ Apical] Respiratory 15 18 16 Rate Respiratory Rate [Anterior Bilateral Throughout] Blood Pressure 74/35 87/32 90/31 O2 Sat by Pulse 96 97 Oximetry 08/24/18 08/24/18 08/24/18 01:15 01:30 01:31 Temperature Pulse Rate 65 65 Pulse Rate [ 64 Anterior Bilateral Throughout] Pulse Rate [ Apical] Respiratory 17 17 Rate Respiratory 26 H Rate [Anterior Bilateral Throughout] Blood Pressure 76/29 83/33 O2 Sat by Pulse 97 95 Oximetry 08/24/18 08/24/18 08/24/18 01:45 01:46 02:00 Temperature Pulse Rate 64 66 Pulse Rate [ 66 Anterior Bilateral Throughout] Pulse Rate [ Apical] Respiratory 21 17 Rate Respiratory 26 H Rate [Anterior Bilateral Throughout] Blood Pressure 93/36 90/36 O2 Sat by Pulse 99 100 Oximetry 08/24/18 08/24/18 08/24/18 02:15 02:30 02:45 Temperature Pulse Rate 65 66 66 Pulse Rate [ Anterior Bilateral Throughout] Pulse Rate [ Apical] Respiratory 16 17 14 Rate Respiratory Rate [Anterior Bilateral Throughout] Blood Pressure 100/31 103/34 98/39 O2 Sat by Pulse 99 100 Oximetry 08/24/18 08/24/18 08/24/18 03:00 03:15 03:30 Temperature Pulse Rate 73 76 77 Pulse Rate [ Anterior Bilateral Throughout] Pulse Rate [ Apical] Respiratory 17 16 17 Rate Respiratory Rate [Anterior Bilateral Throughout] Blood Pressure 109/46 117/48 123/48 O2 Sat by Pulse 97 97 95 Oximetry 08/24/18 08/24/18 08/24/18 03:45 04:00 04:12 Temperature 99.7 F H Pulse Rate 76 70 73 Pulse Rate [ Anterior Bilateral Throughout] Pulse Rate [ 76 Apical] Respiratory 15 18 Rate Respiratory Rate [Anterior Bilateral Throughout] Blood Pressure 131/54 124/58 124/58 O2 Sat by Pulse 95 95 99 Oximetry 08/24/18 08/24/18 08/24/18 04:15 04:30 04:45 Temperature Pulse Rate 76 75 77 Pulse Rate [ Anterior Bilateral Throughout] Pulse Rate [ Apical] Respiratory 12 25 H 20 Rate Respiratory Rate [Anterior Bilateral Throughout] Blood Pressure 124/57 137/69 128/56 O2 Sat by Pulse 99 97 98 Oximetry 08/24/18 08/24/18 08/24/18 05:00 05:15 05:30 Temperature Pulse Rate 79 78 81 Pulse Rate [ Anterior Bilateral Throughout] Pulse Rate [ Apical] Respiratory 18 18 20 Rate Respiratory Rate [Anterior Bilateral Throughout] Blood Pressure 138/61 141/58 137/63 O2 Sat by Pulse 96 95 97 Oximetry 08/24/18 08/24/18 08/24/18 05:45 06:00 06:15 Temperature Pulse Rate 81 82 80 Pulse Rate [ Anterior Bilateral Throughout] Pulse Rate [ Apical] Respiratory 18 20 21 Rate Respiratory Rate [Anterior Bilateral Throughout] Blood Pressure 150/65 152/58 144/66 O2 Sat by Pulse 95 95 95 Oximetry 08/24/18 08/24/18 08/24/18 06:30 06:45 07:00 Temperature Pulse Rate 81 84 86 Pulse Rate [ Anterior Bilateral Throughout] Pulse Rate [ Apical] Respiratory 23 18 16 Rate Respiratory Rate [Anterior Bilateral Throughout] Blood Pressure 160/67 166/61 160/63 O2 Sat by Pulse 95 98 95 Oximetry 08/24/18 08/24/18 08/24/18 07:15 07:30 07:45 Temperature Pulse Rate 86 86 89 Pulse Rate [ Anterior Bilateral Throughout] Pulse Rate [ Apical] Respiratory 17 22 12 Rate Respiratory Rate [Anterior Bilateral Throughout] Blood Pressure 166/57 160/67 166/64 O2 Sat by Pulse 96 96 96 Oximetry 08/24/18 08/24/18 08/24/18 07:55 08:00 08:10 Temperature 99.5 F Pulse Rate 89 86 Pulse Rate [ 88 90 Anterior Bilateral Throughout] Pulse Rate [ Apical] Respiratory 25 H Rate Respiratory 25 H 30 H Rate [Anterior Bilateral Throughout] Blood Pressure 174/72 174/72 O2 Sat by Pulse 100 98 Oximetry 08/24/18 08/24/18 08/24/18 08:15 08:30 08:45 Temperature Pulse Rate 91 H 91 H 93 H Pulse Rate [ Anterior Bilateral Throughout] Pulse Rate [ Apical] Respiratory 22 18 19 Rate Respiratory Rate [Anterior Bilateral Throughout] Blood Pressure 172/67 183/66 175/62 O2 Sat by Pulse 95 94 95 Oximetry 08/24/18 08/24/18 08/24/18 09:01 09:15 09:30 Temperature Pulse Rate 90 91 H 84 Pulse Rate [ Anterior Bilateral Throughout] Pulse Rate [ Apical] Respiratory 27 H 28 H 26 H Rate Respiratory Rate [Anterior Bilateral Throughout] Blood Pressure 131/68 107/44 102/42 O2 Sat by Pulse 98 96 96 Oximetry 08/24/18 08/24/18 08/24/18 09:32 09:45 10:00 Temperature Pulse Rate 90 80 81 Pulse Rate [ Anterior Bilateral Throughout] Pulse Rate [ Apical] Respiratory 26 H 21 Rate Respiratory Rate [Anterior Bilateral Throughout] Blood Pressure 102/42 104/41 119/45 O2 Sat by Pulse 95 96 Oximetry 08/24/18 08/24/18 08/24/18 10:15 10:30 10:45 Temperature Pulse Rate 83 83 83 Pulse Rate [ Anterior Bilateral Throughout] Pulse Rate [ Apical] Respiratory 17 19 13 Rate Respiratory Rate [Anterior Bilateral Throughout] Blood Pressure 126/48 128/49 136/53 O2 Sat by Pulse 96 97 96 Oximetry 08/24/18 08/24/18 08/24/18 11:00 11:15 11:30 Temperature Pulse Rate 88 86 86 Pulse Rate [ Anterior Bilateral Throughout] Pulse Rate [ Apical] Respiratory 18 30 H 25 H Rate Respiratory Rate [Anterior Bilateral Throughout] Blood Pressure 130/52 136/82 141/91 O2 Sat by Pulse 96 96 96 Oximetry Constitutional: appears uncomfortable, other (elderly looking CF, normocephalic and atraumatic) Eyes: non-icteric ENT: oropharynx moist, other (ETT 23 cm MARTHA) Neck: supple, no lymphadenopathy, no JVD, other (no thyromegaly) Effort: mildly labored Ascultation: Bilateral: diminished breath sounds, rales Percussion: Bilateral: not dull Cardiovascular: regular rate and rhythm Gastrointestinal: normoactive bowel sounds, soft, non-tender, non-distended Integumentary: normal Extremities: no cyanosis, no edema, no ischemia or petechiae Neurologic: non-focal exam (grossly), pupils equal and round, CN II-XII normal, motor strength normal and Psychiatric: other (unable to assess) CBC and BMP: 08/27/18 04:35 08/27/18 04:35 ABG, PT/INR, D-dimer: ABG POC ABG pH 7.414 (7.35-7.45) 08/24/18 04:18 POC ABG pCO2 31.3 (35-45) L 08/23/18 21:19 POC ABG pO2 78 (80-105) L 08/24/18 04:18 POC ABG HCO3 18.9 (22-26 mml/L) 08/24/18 04:18 POC ABG Total CO2 20 (23-27mmol/L) 08/24/18 04:18 POC ABG O2 Sat 96 08/24/18 04:18 PT/INR, D-dimer D-Dimer 2768.33 ng/mlDDU (0-234) H 08/15/18 18:31 Abnormal lab findings: Abnormal Labs 08/15/18 08/15/18 08/15/18 17:52 17:52 17:52 WBC 12.7 H RBC 3.25 L Hgb Hct RDW Plt Count Seg Neuts % (Manual) Lymphocytes % (Manual) 6.0 L Nucleated RBC % Seg Neutrophils # Man Lymphocytes # (Manual) 0.8 L D-Dimer POC ABG pH POC ABG pCO2 POC ABG pO2 VBG pH Sodium Potassium 3.4 L Chloride 94.6 L Carbon Dioxide 17 L BUN 67 H Creatinine 3.5 H Glucose 131 H POC Glucose Hemoglobin A1c Lactic Acid 5.20 H* Calcium 7.6 L Phosphorus AST 887 H ALT 316 H Troponin T C-Reactive Protein Total Protein Albumin 3.1 L Triglycerides LDL Cholesterol Direct HDL Cholesterol Urine WBC (Auto) Salicylates Acetaminophen % CD3 Cells % CD19 Cells Absolute CD19 Count 08/15/18 08/15/18 08/15/18 18:11 18:19 18:31 WBC RBC Hgb Hct RDW Plt Count Seg Neuts % (Manual) Lymphocytes % (Manual) Nucleated RBC % Seg Neutrophils # Man Lymphocytes # (Manual) D-Dimer 2768.33 H POC ABG pH 7.173 L POC ABG pCO2 47.8 H POC ABG pO2 177 H VBG pH 7.187 L* Sodium Potassium Chloride Carbon Dioxide BUN Creatinine Glucose POC Glucose Hemoglobin A1c Lactic Acid Calcium Phosphorus AST ALT Troponin T C-Reactive Protein Total Protein Albumin Triglycerides LDL Cholesterol Direct HDL Cholesterol Urine WBC (Auto) Salicylates Acetaminophen % CD3 Cells % CD19 Cells Absolute CD19 Count 08/15/18 08/15/18 08/15/18 18:31 19:14 19:14 WBC RBC Hgb Hct RDW Plt Count Seg Neuts % (Manual) Lymphocytes % (Manual) Nucleated RBC % Seg Neutrophils # Man Lymphocytes # (Manual) D-Dimer POC ABG pH POC ABG pCO2 POC ABG pO2 VBG pH Sodium Potassium Chloride Carbon Dioxide BUN Creatinine Glucose POC Glucose Hemoglobin A1c Lactic Acid 2.70 H* Calcium Phosphorus AST ALT Troponin T 0.454 H* C-Reactive Protein Total Protein Albumin Triglycerides 356 H LDL Cholesterol Direct 4 L HDL Cholesterol 10 L Urine WBC (Auto) Salicylates < 0.3 L Acetaminophen % CD3 Cells % CD19 Cells Absolute CD19 Count 08/15/18 08/15/18 08/15/18 19:14 19:15 23:09 WBC RBC Hgb Hct RDW Plt Count Seg Neuts % (Manual) Lymphocytes % (Manual) Nucleated RBC % Seg Neutrophils # Man Lymphocytes # (Manual) D-Dimer POC ABG pH POC ABG pCO2 POC ABG pO2 VBG pH Sodium Potassium Chloride Carbon Dioxide BUN Creatinine Glucose POC Glucose Hemoglobin A1c Lactic Acid 3.20 H* Calcium Phosphorus AST ALT Troponin T C-Reactive Protein Total Protein Albumin Triglycerides LDL Cholesterol Direct HDL Cholesterol Urine WBC (Auto) 17.0 H Salicylates Acetaminophen < 5.0 L % CD3 Cells % CD19 Cells Absolute CD19 Count 08/15/18 08/16/18 08/16/18 23:09 01:41 05:38 WBC RBC 3.07 L Hgb 9.8 L Hct 28.7 L RDW Plt Count Seg Neuts % (Manual) 84.0 H Lymphocytes % (Manual) 6.0 L Nucleated RBC % 4.0 H Seg Neutrophils # Man Lymphocytes # (Manual) 0.5 L D-Dimer POC ABG pH 7.323 L POC ABG pCO2 34.7 L POC ABG pO2 78 L VBG pH Sodium Potassium Chloride Carbon Dioxide BUN Creatinine Glucose POC Glucose Hemoglobin A1c 6.4 H Lactic Acid Calcium Phosphorus AST ALT Troponin T C-Reactive Protein Total Protein Albumin Triglycerides LDL Cholesterol Direct HDL Cholesterol Urine WBC (Auto) Salicylates Acetaminophen % CD3 Cells % CD19 Cells Absolute CD19 Count 08/16/18 08/16/18 08/17/18 05:38 22:43 03:42 WBC RBC Hgb Hct RDW Plt Count Seg Neuts % (Manual) Lymphocytes % (Manual) Nucleated RBC % Seg Neutrophils # Man Lymphocytes # (Manual) D-Dimer POC ABG pH POC ABG pCO2 POC ABG pO2 VBG pH Sodium Potassium 2.9 L* 3.1 L 2.9 L* Chloride 108.8 H 111.9 H Carbon Dioxide 17 L 19 L 21 L BUN 62 H 40 H 33 H Creatinine 2.0 H Glucose 139 H 145 H POC Glucose Hemoglobin A1c Lactic Acid Calcium 7.8 L 8.3 L Phosphorus 1.50 L AST 619 H ALT 353 H Troponin T C-Reactive Protein Total Protein 6.1 L Albumin 2.8 L Triglycerides LDL Cholesterol Direct HDL Cholesterol Urine WBC (Auto) Salicylates Acetaminophen % CD3 Cells % CD19 Cells Absolute CD19 Count 08/17/18 08/17/18 08/18/18 11:02 16:42 03:28 WBC RBC Hgb Hct RDW Plt Count Seg Neuts % (Manual) Lymphocytes % (Manual) Nucleated RBC % Seg Neutrophils # Man Lymphocytes # (Manual) D-Dimer POC ABG pH 7.483 H 7.499 H POC ABG pCO2 POC ABG pO2 VBG pH Sodium 147 H Potassium 3.2 L Chloride 115.8 H Carbon Dioxide BUN 23 H Creatinine Glucose 121 H POC Glucose Hemoglobin A1c Lactic Acid Calcium 8.1 L Phosphorus 2.30 L D AST ALT Troponin T C-Reactive Protein Total Protein Albumin Triglycerides LDL Cholesterol Direct HDL Cholesterol Urine WBC (Auto) Salicylates Acetaminophen % CD3 Cells % CD19 Cells Absolute CD19 Count 08/18/18 08/18/18 08/18/18 04:10 13:39 13:39 WBC RBC Hgb Hct RDW Plt Count Seg Neuts % (Manual) Lymphocytes % (Manual) Nucleated RBC % Seg Neutrophils # Man Lymphocytes # (Manual) D-Dimer POC ABG pH POC ABG pCO2 POC ABG pO2 VBG pH Sodium 147 H Potassium 3.3 L Chloride 111.9 H Carbon Dioxide BUN 21 H Creatinine Glucose 113 H POC Glucose Hemoglobin A1c Lactic Acid Calcium Phosphorus 1.50 L D AST ALT Troponin T 0.317 H* D C-Reactive Protein 10.70 H Total Protein Albumin Triglycerides LDL Cholesterol Direct HDL Cholesterol Urine WBC (Auto) Salicylates Acetaminophen % CD3 Cells % CD19 Cells Absolute CD19 Count 08/18/18 08/19/18 08/19/18 16:51 03:47 04:15 WBC RBC Hgb Hct RDW Plt Count Seg Neuts % (Manual) Lymphocytes % (Manual) Nucleated RBC % Seg Neutrophils # Man Lymphocytes # (Manual) D-Dimer POC ABG pH 7.454 H 7.482 H POC ABG pCO2 POC ABG pO2 65 L VBG pH Sodium 154 H Potassium 3.3 L Chloride 115.1 H Carbon Dioxide BUN 19 H Creatinine Glucose 117 H POC Glucose Hemoglobin A1c Lactic Acid Calcium 7.8 L Phosphorus AST ALT Troponin T C-Reactive Protein Total Protein Albumin Triglycerides LDL Cholesterol Direct HDL Cholesterol Urine WBC (Auto) Salicylates Acetaminophen % CD3 Cells % CD19 Cells Absolute CD19 Count 08/19/18 08/19/18 08/20/18 14:32 16:18 03:51 WBC RBC Hgb Hct RDW Plt Count Seg Neuts % (Manual) Lymphocytes % (Manual) Nucleated RBC % Seg Neutrophils # Man Lymphocytes # (Manual) D-Dimer POC ABG pH 7.483 H POC ABG pCO2 33.4 L POC ABG pO2 51 L 74 L VBG pH Sodium Potassium Chloride Carbon Dioxide BUN Creatinine Glucose POC Glucose Hemoglobin A1c Lactic Acid Calcium Phosphorus AST ALT Troponin T C-Reactive Protein Total Protein Albumin Triglycerides LDL Cholesterol Direct HDL Cholesterol Urine WBC (Auto) Salicylates Acetaminophen % CD3 Cells 44 L % CD19 Cells 41 H Absolute CD19 Count 1290 H 08/20/18 08/21/18 08/21/18 05:25 03:54 05:45 WBC 24.1 H RBC 2.83 L Hgb 8.8 L Hct 26.7 L RDW 15.7 H Plt Count 127 L Seg Neuts % (Manual) 94.0 H Lymphocytes % (Manual) 4.0 L Nucleated RBC % 1.0 H Seg Neutrophils # Man 22.7 H Lymphocytes # (Manual) 1.0 L D-Dimer POC ABG pH POC ABG pCO2 31.9 L POC ABG pO2 66 L VBG pH Sodium 146 H D Potassium Chloride 111.2 H Carbon Dioxide BUN 24 H Creatinine Glucose 141 H POC Glucose Hemoglobin A1c Lactic Acid Calcium 8.1 L Phosphorus AST 65 H ALT 104 H Troponin T C-Reactive Protein Total Protein 6.2 L Albumin 2.6 L Triglycerides LDL Cholesterol Direct HDL Cholesterol Urine WBC (Auto) Salicylates Acetaminophen % CD3 Cells % CD19 Cells Absolute CD19 Count 08/21/18 08/22/18 08/22/18 05:45 06:20 06:45 WBC RBC Hgb Hct RDW Plt Count Seg Neuts % (Manual) Lymphocytes % (Manual) Nucleated RBC % Seg Neutrophils # Man Lymphocytes # (Manual) D-Dimer POC ABG pH POC ABG pCO2 32.9 L POC ABG pO2 VBG pH Sodium Potassium 3.5 L Chloride 109.4 H 112.4 H Carbon Dioxide 21 L 20 L BUN 50 H 61 H Creatinine 2.0 H D 1.9 H Glucose 144 H 154 H POC Glucose Hemoglobin A1c Lactic Acid Calcium 7.6 L 7.8 L Phosphorus AST ALT Troponin T C-Reactive Protein Total Protein 5.3 L Albumin 2.1 L Triglycerides LDL Cholesterol Direct HDL Cholesterol Urine WBC (Auto) Salicylates Acetaminophen % CD3 Cells % CD19 Cells Absolute CD19 Count 08/22/18 08/22/18 08/22/18 06:45 15:29 18:40 WBC RBC Hgb Hct RDW Plt Count Seg Neuts % (Manual) Lymphocytes % (Manual) Nucleated RBC % Seg Neutrophils # Man Lymphocytes # (Manual) D-Dimer POC ABG pH POC ABG pCO2 POC ABG pO2 VBG pH Sodium Potassium Chloride Carbon Dioxide BUN Creatinine Glucose POC Glucose 169 H Hemoglobin A1c Lactic Acid Calcium Phosphorus AST ALT Troponin T C-Reactive Protein 4.70 H Total Protein Albumin Triglycerides 197 H LDL Cholesterol Direct HDL Cholesterol Urine WBC (Auto) Salicylates Acetaminophen % CD3 Cells % CD19 Cells Absolute CD19 Count 08/23/18 08/23/18 08/23/18 03:59 21:19 Unknown WBC 12.1 H RBC 2.29 L Hgb 7.1 L Hct 21.7 L RDW 15.7 H Plt Count 106 L Seg Neuts % (Manual) 92.0 H Lymphocytes % (Manual) 4.0 L Nucleated RBC % Seg Neutrophils # Man 11.1 H Lymphocytes # (Manual) 0.5 L D-Dimer POC ABG pH 7.306 L POC ABG pCO2 31.3 L POC ABG pO2 119 H 75 L VBG pH Sodium Potassium Chloride Carbon Dioxide BUN Creatinine Glucose POC Glucose Hemoglobin A1c Lactic Acid Calcium Phosphorus AST ALT Troponin T C-Reactive Protein Total Protein Albumin Triglycerides LDL Cholesterol Direct HDL Cholesterol Urine WBC (Auto) Salicylates Acetaminophen % CD3 Cells % CD19 Cells Absolute CD19 Count 08/23/18 08/24/18 08/24/18 Unknown 04:18 08:30 WBC 12.8 H RBC 2.24 L Hgb 7.0 L Hct 21.1 L RDW Plt Count Seg Neuts % (Manual) 93.0 H Lymphocytes % (Manual) 6.0 L Nucleated RBC % Seg Neutrophils # Man 11.9 H Lymphocytes # (Manual) 0.8 L D-Dimer POC ABG pH POC ABG pCO2 POC ABG pO2 78 L VBG pH Sodium Potassium Chloride 115.7 H Carbon Dioxide 21 L BUN 64 H Creatinine 2.0 H Glucose 149 H POC Glucose Hemoglobin A1c Lactic Acid Calcium 7.5 L Phosphorus AST ALT Troponin T C-Reactive Protein Total Protein 4.8 L Albumin 2.0 L Triglycerides LDL Cholesterol Direct HDL Cholesterol Urine WBC (Auto) Salicylates Acetaminophen % CD3 Cells % CD19 Cells Absolute CD19 Count 08/24/18 08:30 WBC RBC Hgb Hct RDW Plt Count Seg Neuts % (Manual) Lymphocytes % (Manual) Nucleated RBC % Seg Neutrophils # Man Lymphocytes # (Manual) D-Dimer POC ABG pH POC ABG pCO2 POC ABG pO2 VBG pH Sodium Potassium Chloride 108.3 H Carbon Dioxide 20 L BUN 65 H Creatinine 2.0 H Glucose 167 H POC Glucose Hemoglobin A1c Lactic Acid Calcium 7.7 L Phosphorus AST ALT Troponin T C-Reactive Protein Total Protein 5.3 L Albumin 2.2 L Triglycerides LDL Cholesterol Direct HDL Cholesterol Urine WBC (Auto) Salicylates Acetaminophen % CD3 Cells % CD19 Cells Absolute CD19 Count Chest x-ray: image reviewed Allied health notes reviewed: nursing
--- NOTE | 2018-08-24 12:30 | Progress Note ---
Assessment and Plan Severe sepsis Blood cultures 08/15 - yeast Sputum culture 08/15 - E.coli and Staph aureus Acute renal failure on admission - resolved Acute respiratory failure - intubated and mechanically ventilated Lactic acidosis on admission - resolved Acute transaminitis on admission Hypernatremia Altered mental status History of COPD New onset cardiomyopathy, LVEF 25-30% this admission Previous echo 03/30/2016 at [facility] revealed normal LVEF Previous stress MPI 03/29/2016 at [facility] revealed no ischemia Abnormal ECG showing LBBB, chronic Recent EGD at [facility] 08/08/2018 revealing irregular Z line, gastritis and small histal hernia Recent colonoscopy at [facility] 08/08/2018 revealing sigmoid polyp, transverse colon polyps, inflamed hemorrhoids and diverticulosis Recommend: Continue medical therapy for new onset cardiomyopathy. Further cardiac workup will depend on clinical course. Subjective Date of service: 08/24/18 Principal diagnosis: Acute hypoxemic hypercapnic Resp failure; AE-COPD; Acute kidney injury Interval history: Patient remains sedated and intubated on the vent. Objective Vital Signs Temp Pulse Pulse Pulse Resp Resp BP 08/24/18 12:20 91 H 146/51 08/24/18 11:30 86 25 H 141/91 08/24/18 11:15 86 30 H 136/82 08/24/18 11:00 88 18 130/52 08/24/18 10:45 83 13 136/53 08/24/18 10:30 83 19 128/49 08/24/18 10:15 83 17 126/48 08/24/18 10:00 81 21 119/45 08/24/18 09:45 80 26 H 104/41 08/24/18 09:32 90 102/42 08/24/18 09:30 84 26 H 102/42 08/24/18 09:15 91 H 28 H 107/44 08/24/18 09:01 90 27 H 131/68 08/24/18 08:45 93 H 19 175/62 08/24/18 08:30 91 H 18 183/66 08/24/18 08:15 91 H 22 172/67 08/24/18 08:10 90 30 H 08/24/18 08:00 99.5 F 86 25 H 174/72 08/24/18 07:55 89 88 25 H 174/72 08/24/18 07:45 89 12 166/64 08/24/18 07:30 86 22 160/67 08/24/18 07:15 86 17 166/57 08/24/18 07:00 86 16 160/63 08/24/18 06:45 84 18 166/61 08/24/18 06:30 81 23 160/67 08/24/18 06:15 80 21 144/66 08/24/18 06:00 82 20 152/58 08/24/18 05:45 81 18 150/65 08/24/18 05:30 81 20 137/63 08/24/18 05:15 78 18 141/58 08/24/18 05:00 79 18 138/61 08/24/18 04:45 77 20 128/56 08/24/18 04:30 75 25 H 137/69 08/24/18 04:15 76 12 124/57 08/24/18 04:12 73 124/58 08/24/18 04:00 99.7 F H 70 76 18 124/58 08/24/18 03:45 76 15 131/54 08/24/18 03:30 77 17 123/48 08/24/18 03:15 76 16 117/48 08/24/18 03:00 73 17 109/46 08/24/18 02:45 66 14 98/39 08/24/18 02:30 66 17 103/34 08/24/18 02:15 65 16 100/31 08/24/18 02:00 66 17 90/36 08/24/18 01:46 66 26 H 08/24/18 01:45 64 21 93/36 08/24/18 01:31 64 26 H 08/24/18 01:30 65 17 83/33 08/24/18 01:15 65 17 76/29 08/24/18 01:00 66 16 90/31 08/24/18 00:45 67 18 87/32 08/24/18 00:30 71 15 74/35 08/24/18 00:15 68 16 74/35 08/24/18 00:00 100.0 F H 68 69 14 80/31 08/23/18 23:45 67 16 84/35 08/23/18 23:35 68 83/34 08/23/18 23:30 67 15 90/35 08/23/18 23:15 68 18 83/34 08/23/18 23:00 71 15 86/35 08/23/18 22:45 78 17 81/35 08/23/18 22:30 82 20 91/36 08/23/18 22:27 81 24 105/38 08/23/18 22:17 80 108/45 08/23/18 22:15 78 19 108/45 08/23/18 22:00 76 19 101/44 08/23/18 21:45 79 15 105/38 08/23/18 21:30 77 26 H 122/48 08/23/18 21:15 83 13 117/50 08/23/18 21:00 77 17 113/47 08/23/18 20:45 78 19 115/49 08/23/18 20:30 80 16 118/53 08/23/18 20:23 83 25 H 08/23/18 20:15 78 22 121/51 08/23/18 20:08 81 25 H 08/23/18 20:00 100.6 F H 81 16 108/50 08/23/18 19:59 81 108/50 08/23/18 19:45 80 22 121/47 08/23/18 19:40 82 27 H 08/23/18 19:30 82 21 125/50 08/23/18 19:15 82 22 121/46 08/23/18 19:00 82 21 110/47 08/23/18 18:45 88 27 H 119/48 08/23/18 18:33 101.6 F H 08/23/18 18:30 84 25 H 125/47 08/23/18 18:15 85 20 116/86 08/23/18 18:00 89 24 115/57 08/23/18 17:45 87 25 H 113/49 08/23/18 17:30 89 26 H 128/52 08/23/18 17:15 90 22 135/54 08/23/18 17:00 90 25 H 125/50 08/23/18 16:45 89 26 H 114/50 08/23/18 16:30 91 H 29 H 121/53 08/23/18 16:17 88 26 H 08/23/18 16:15 94 H 26 H 117/59 08/23/18 16:10 91 H 122/55 08/23/18 16:08 93 H 31 H 08/23/18 16:00 102.7 F H 99 H 87 22 122/55 08/23/18 15:45 98 H 35 H 152/54 08/23/18 15:30 88 27 H 133/52 08/23/18 15:15 86 30 H 137/49 08/23/18 15:00 91 H 30 H 139/45 08/23/18 14:45 84 17 132/46 08/23/18 14:30 76 18 115/41 08/23/18 14:15 73 25 H 117/47 08/23/18 14:00 74 26 H 115/45 08/23/18 13:45 74 26 H 108/47 08/23/18 13:30 73 29 H 112/46 08/23/18 13:15 75 27 H 117/48 08/23/18 13:00 72 27 H 112/53 08/23/18 12:45 72 26 H 112/56 08/23/18 12:30 72 22 112/51 Pulse Ox 08/24/18 12:20 95 08/24/18 11:30 96 08/24/18 11:15 96 08/24/18 11:00 96 08/24/18 10:45 96 08/24/18 10:30 97 08/24/18 10:15 96 08/24/18 10:00 96 08/24/18 09:45 95 08/24/18 09:32 08/24/18 09:30 96 08/24/18 09:15 96 08/24/18 09:01 98 08/24/18 08:45 95 08/24/18 08:30 94 08/24/18 08:15 95 08/24/18 08:10 08/24/18 08:00 98 08/24/18 07:55 100 08/24/18 07:45 96 08/24/18 07:30 96 08/24/18 07:15 96 08/24/18 07:00 95 08/24/18 06:45 98 08/24/18 06:30 95 08/24/18 06:15 95 08/24/18 06:00 95 08/24/18 05:45 95 08/24/18 05:30 97 08/24/18 05:15 95 08/24/18 05:00 96 08/24/18 04:45 98 08/24/18 04:30 97 08/24/18 04:15 99 08/24/18 04:12 99 08/24/18 04:00 95 08/24/18 03:45 95 08/24/18 03:30 95 08/24/18 03:15 97 08/24/18 03:00 97 08/24/18 02:45 08/24/18 02:30 100 08/24/18 02:15 99 08/24/18 02:00 100 08/24/18 01:46 08/24/18 01:45 99 08/24/18 01:31 08/24/18 01:30 95 08/24/18 01:15 97 08/24/18 01:00 97 08/24/18 00:45 96 08/24/18 00:30 08/24/18 00:15 98 08/24/18 00:00 100 08/23/18 23:45 99 08/23/18 23:35 98 08/23/18 23:30 99 08/23/18 23:15 98 08/23/18 23:00 99 08/23/18 22:45 98 08/23/18 22:30 97 08/23/18 22:27 96 08/23/18 22:17 08/23/18 22:15 97 08/23/18 22:00 95 08/23/18 21:45 94 08/23/18 21:30 94 08/23/18 21:15 93 08/23/18 21:00 95 08/23/18 20:45 95 08/23/18 20:30 99 08/23/18 20:23 08/23/18 20:15 94 08/23/18 20:08 08/23/18 20:00 93 08/23/18 19:59 94 08/23/18 19:45 96 08/23/18 19:40 95 08/23/18 19:30 95 08/23/18 19:15 94 08/23/18 19:00 95 08/23/18 18:45 94 08/23/18 18:33 08/23/18 18:30 93 08/23/18 18:15 92 08/23/18 18:00 95 08/23/18 17:45 95 08/23/18 17:30 95 03/26/19 17:15 94 08/23/18 17:00 95 08/23/18 16:45 96 08/23/18 16:30 96 08/23/18 16:17 08/23/18 16:15 08/23/18 16:10 100 08/23/18 16:08 08/23/18 16:00 95 08/23/18 15:45 94 08/23/18 15:30 99 08/23/18 15:15 94 08/23/18 15:00 94 08/23/18 14:45 97 08/23/18 14:30 99 08/23/18 14:15 98 08/23/18 14:00 98 08/23/18 13:45 97 08/23/18 13:30 98 08/23/18 13:15 98 08/23/18 13:00 100 08/23/18 12:45 100 08/23/18 12:30 100 - Physical Examination General: Other (intubated and sedated) Cardiac: Positive: Reg Rate and Rhythm Extremities: Absent: edema - Labs and Meds Cardiac Enzymes 08/24/18 Range/Units 08:30 AST 30 (5-40) units/L CBC 08/24/18 Range/Units 08:30 WBC 12.8 H (4.5-11.0) K/mm3 RBC 2.24 L (3.65-5.03) M/mm3 Hgb 7.0 L (10.1-14.3) gm/dl Hct 21.1 L (30.3-42.9) % Plt Count 148 (140-440) K/mm3 Comprehensive Metabolic Panel 08/24/18 Range/Units 08:30 Sodium 141 (137-145) mmol/L Potassium 3.6 (3.6-5.0) mmol/L Chloride 108.3 H (98-107) mmol/L Carbon Dioxide 20 L (22-30) mmol/L BUN 65 H (7-17) mg/dL Creatinine 2.0 H (0.7-1.2) mg/dL Glucose 167 H (65-100) mg/dL Calcium 7.7 L (8.4-10.2) mg/dL AST 30 (5-40) units/L ALT 11 (7-56) units/L Alkaline Phosphatase 63 (35-129) units/L Total Protein 5.3 L (6.3-8.2) g/dL Albumin 2.2 L (3.9-5) g/dL - Allied health notes Allied health notes reviewed: nursing
[2018-08-24] MEDS: BENADRYL IV SCH (12:35)
--- NOTE | 2018-08-24 13:14 | XRay Report ---
AP CHEST: HISTORY: Pneumonia Bilateral lower lobe infiltrates appear relatively stable since the exam 3 days ago. The upper lung zones remain clear. No large pleural effusion or pneumothorax is identified. Heart size is stable at the upper limits of normal. Lines and support devices remain in good position. IMPRESSION: No significant change in the bilateral lower lobe infiltrates.
[2018-08-24] MEDS: D5W IV SCH (13:41)
[2018-08-24] MEDS: ABELCET IV SCH (13:41)
[2018-08-24] MEDS: APRESOLINE PO SCH ×2 (13:42→21:31)
[2018-08-24] MEDS: SODIUM BICARBONATE 100 MEQ in D5W 1,000 ML IV SCH (13:45)
[2018-08-24] MEDS: TYLENOL PO PRN (21:30)
[2018-08-24] MEDS: LEVOPHED DRIP 4 MG/NS 250 ML 4 MG/250 ML BAG IV SCH (22:21)
[2018-08-25] MEDS: DUONEB *Not for PRN Use IH SCH ×4 (02:45→19:17)
[2018-08-25] MEDS: LEVOPHED DRIP 4 MG/NS 250 ML 4 MG/250 ML BAG IV SCH (05:15)
[2018-08-25 06:13] LABS: Hemoglobin 6.7 gm/dl (10.1-14.3)
[2018-08-25 06:18] LABS: Calcium 7.5 mg/dL (8.4-10.2)
[2018-08-25] MEDS: APRESOLINE PO SCH ×2 (06:30→21:30)
--- NOTE | 2018-08-25 07:46 | Progress Note ---
Assessment and Plan Cultures: 08/15/2018 blood culture: One set positive for yeast 08/15/2018 sputum culture: MSSA and Escherichia coli, wade susceptible 08/18/2018 blood culture: no growth 08/18/2018 urine culture: neg 08/22/2018 blood culture: no growth A/P: 68-year-old female with COPD, arthritis, history of multiple spinal surgeries was brought to the emergency room on 08/15/2018 with altered mental status: 1) Sepsis with now ?septic shock: fever trending down and WBC better, placed on levophed at 10. Etio is unclear. Likely fungemia, which did not respond to 2 day-course of initial fluconazole and then 3 day-course micafungin. 08/22/2018 blood culture: no growth 2) Fungemia: Blood cultures done on admission growing yeast in one set (per micro it does not look like Camryn or Crypto). Etiology is unclear. Patient without any history of indwelling PICC line, TPN or immunocompromised status. reporting severe explosive diarrhea, N/V before admission after taken 4 days of amoxicillin for dental implant on 07/29/2018 and had a EGD / colonoscopy on 08/08/[address] at [place] [address] Alcantara. I reviewed report mild chronic gastritis, focal intestinal metaplasia, squamocolumnar mucosa with mild reflux-type changes, and tubular adenoma. -s/p fluconazole 800 mg loading dose then micafungin, now on amphotericin D3 -serum Crypto negative. -08/15/2018 blood culture: One set positive for yeast (spoke with micro it does not look like Camryn or Crypto) -08/18/2018 blood culture: no growth today -CTA chest showed limited study due to respiratory motion artifact. No evidence of pulmonary embolism. Abnormal bilateral lung consolidation which may represent pulmonary edema or pneumonia. Mild cardiomegaly. Indeterminant mediastinal lymph nodes. -CT abdomen showed extensive bilateral lower lobe pulmonary infiltrates, rectal tube and Dodge catheter noted. NG tube at gastric antrum. Left hip prosthesis Extensive degenerative changes noted lumbar spine -TTE EF 25-30% no vegetations -HIV neg/ CD4 1004 -reviewed CT chest abd done 01/05/2019 showed cholecystectomy, mild fatty liver, postoperative changes of lumbar laminectomy with non specific fluid, 9 mm LLL pulmonary nodule which was compared to previous CT and was stable. 3) Acute renal failure: On admission: Creatinine worsening. Nephrology following. 4) Transaminitis: Likely from shock liver. Better. 5) Bilateral pneumonia: DDx aspiration pneumonia v/s CAP. Causing acute respiratory failure. Chest x-ray shows reticular nodular infiltrates, some of these appear to be chronic and would also present in 2011. CTA chest showed limited study due to respiratory motion artifact. No evidence of pulmonary embolism. Abnormal bilateral lung consolidation which may represent pulmonary edema or pneumonia. Mild cardiomegaly. Indeterminant mediastinal lymph nodes. -Sputum culture 08/15 MSSA and Escherichia coli, wade susceptible 6) Right maxillary sinusitis 7) Acute encephalopathy: Likely multifactorial. CT head unremarkable for acute intracranial process. currently alert follows commands 8) Recent diarrhea after antibiotics. C diff negative. Reviewed CT abdomen with Dr Stoddard and no evidence of diverticulitis, colitis or abscess 9) New onset cardiomyopathy, LVEF 25-30% this admission Recs: repeat blood culture, UA, cortisol level, CRP and procal Remove rigth IJ adjust levophed current MAP 134 f/u aspergillus antigen and 1,2 beta D glucan via - ordered f/u blood culture 08/15/2018 ID and sensitivity-spoke with micro tech Continue cefazolin IV renally adjusted to cover MSSA and Escherichia coli D4 Continue amphotericin renally adjusted D4 Will follow Yasmin Alvarez MD Infectious Diseases [employer] [facility] [phone] O [phone] Subjective Date of service: 08/25/18 Principal diagnosis: Acute hypoxemic hypercapnic Resp failure; AE-COPD; Acute kidney injury Interval history: Remains intubated fiO2 35%, p 8, alert, following commands, NOW on pressors- levophed at 10, MAP 134, tmax 100.7. ROS: unable to obtain Objective - Exam Narrative Exam: Constitutional: alert open eyes, intubated fiO2 35%, p8 Head, Ears, Nose: Normocephalic, atraumatic. External ears, nose normal Eyes: Conjunctivae/corneas clear. No icterus. No ptosis. Neck: Supple, no meningeal signs Oral: +ETT Cardiovascular: irreg Respiratory: gonzalez rhonchi GI: Soft, non-tender; bowel sounds normal. No peritoneal signs Musculoskeletal: No pedal edema, no cyanosis. Skin: No rash or abscess Hem/Lymphatic: No palpable cervical or supraclavicular nodes. No lymphangitis Psych: no agitation Neurological: alert follows commands Rectal tube with diarrhea - Constitutional Vitals: Vital Signs Temp Pulse Resp BP Pulse Ox 98.4 F 79 15 145/71 94 08/25/18 04:00 08/25/18 07:30 08/25/18 07:30 08/25/18 07:30 08/25/18 07:30 Temperature -Last 24 Hours Temperature 98.4 F Temperature 98.8 F Temperature 100.9 F Temperature 100.7 F Temperature 100.7 F Temperature 99.5 F - Labs CBC & Chem 7: 08/25/18 05:20 08/25/18 05:20 Labs: Abnormal lab results 08/24/18 08/24/18 08/24/18 Range/Units 08:30 08:30 17:44 WBC 12.8 H (4.5-11.0) K/mm3 RBC 2.24 L (3.65-5.03) M/mm3 Hgb 7.0 L (10.1-14.3) gm/dl Hct 21.1 L (30.3-42.9) % Seg Neuts % (Manual) 93.0 H (40.0-70.0) % Lymphocytes % (Manual) 6.0 L (13.4-35.0) % Seg Neutrophils # Man 11.9 H (1.8-7.7) K/mm3 Lymphocytes # (Manual) 0.8 L (1.2-5.4) K/mm3 POC ABG pH 7.474 H (7.35-7.45) POC ABG pO2 61 L (80-105) Chloride 108.3 H (98-107) mmol/L Carbon Dioxide 20 L (22-30) mmol/L BUN 65 H (7-17) mg/dL Creatinine 2.0 H (0.7-1.2) mg/dL Glucose 167 H (65-100) mg/dL POC Glucose (70-105) Calcium 7.7 L (8.4-10.2) mg/dL Total Protein 5.3 L (6.3-8.2) g/dL Albumin 2.2 L (3.9-5) g/dL 08/24/18 08/25/18 08/25/18 Range/Units 18:28 03:35 05:20 WBC (4.5-11.0) K/mm3 RBC (3.65-5.03) M/mm3 Hgb 6.7 L (10.1-14.3) gm/dl Hct 21.0 L (30.3-42.9) % Seg Neuts % (Manual) (40.0-70.0) % Lymphocytes % (Manual) (13.4-35.0) % Seg Neutrophils # Man (1.8-7.7) K/mm3 Lymphocytes # (Manual) (1.2-5.4) K/mm3 POC ABG pH (7.35-7.45) POC ABG pO2 79 L (80-105) Chloride (98-107) mmol/L Carbon Dioxide (22-30) mmol/L BUN (7-17) mg/dL Creatinine (0.7-1.2) mg/dL Glucose (65-100) mg/dL POC Glucose 164 H (70-105) Calcium (8.4-10.2) mg/dL Total Protein (6.3-8.2) g/dL Albumin (3.9-5) g/dL 08/25/18 Range/Units 05:20 WBC (4.5-11.0) K/mm3 RBC (3.65-5.03) M/mm3 Hgb (10.1-14.3) gm/dl Hct (30.3-42.9) % Seg Neuts % (Manual) (40.0-70.0) % Lymphocytes % (Manual) (13.4-35.0) % Seg Neutrophils # Man (1.8-7.7) K/mm3 Lymphocytes # (Manual) (1.2-5.4) K/mm3 POC ABG pH (7.35-7.45) POC ABG pO2 (80-105) Chloride (98-107) mmol/L Carbon Dioxide 21 L (22-30) mmol/L BUN 71 H (7-17) mg/dL Creatinine 3.1 H D (0.7-1.2) mg/dL Glucose 171 H (65-100) mg/dL POC Glucose (70-105) Calcium 7.5 L (8.4-10.2) mg/dL Total Protein (6.3-8.2) g/dL Albumin (3.9-5) g/dL
[2018-08-25] MEDS: PULMICORT IH SCH ×2 (08:04→19:17)
[2018-08-25] MEDS ORDERED: NACL 0.9% 500 ML 500 ML IV ONE (08:22)
--- NOTE | 2018-08-25 08:29 | Progress Note ---
Assessment and Plan Assessment and plan: --Anemia; hemoglobin today 6.7 Answers one unit of PRBC, stool for occult blood Gradual drop, no external evidence of bleeding Consider GI evaluation --Acute hypoxic hypercapnic respiratory failure; intubated on ventilatory support nebulizers, IV antibiotics, supportive care wean as tolerated and extubate, pulmonary following --Aspiration pneumonia; Continue antibiotics and antifungal per ID Follow-up chest x-ray; no improvement of pneumonia --Hypertension; continue current antihypertensives Added hydralazine 25mg 8 hours a day,PRN meds --Persistent fever; 24-hour MAXIMUM TEMPERATURE 100.7 last evening Afebrile this morning, continue current management --Sepsis; secondary to aspiration pneumonia, continue current antibiotics Follow cultures, ID following --Hypernatremia; free water flushes, improved Closely monitor electrolytes, trending down --Hypokalemia; replace with KCl, follow electrolytes --Severe malnutrition/hypoalbuminemia; Nutrition consults and supportive care --Acute kidney injury; probably secondary to ATN avoid nephrotoxins, Nephrology following ----Acute systolic congestive heart failure; Ejection fraction 25-30%, continue current management Cardiology following --Elevated Transaminases; possible congested liver Levels trending down, check acute hepatitis panel Consider GI evaluation if needed --DVT prophylaxis; Lovenox Consults and recommendations noted and appreciated Plan of care reviewed with the patient's nurse Patient is critically ill with poor prognosis The high probability of a clinically significant, sudden or life threatening deterioration of the [respiratory, cardiology, ID, renal and metabolic] system(s) required my full and direct attention, intervention and personal management. The aggregate critical care time was [31] minutes. This time is in addition to time spent performing reported procedures but includes the following: [x] Data Review and interpretation [x] Patient assessment and monitoring of vital signs [x] Documentation [x] Medication orders and management History Interval history: Patient seen and examined this morning medical records reviewed No new events reported by the nursing staff Drop in H&H, no external evidence of bleeding Patient is more alert and awake today responding appropriately 24 hours MAXIMUM TEMPERATURE 100.7 yesterday evening Afebrile now Vital signs reviewed Hospitalist Physical - Constitutional Vitals: Temp Pulse Resp BP Pulse Ox 98.9 F 80 22 123/50 99 08/25/18 08:00 08/25/18 08:15 08/25/18 08:15 08/25/18 08:15 08/25/18 08:15 General appearance: Present: no acute distress, well-nourished, other (intubated on ventilatory support, sedated) - EENT Eyes: Present: PERRL, EOM intact - Neck Neck: Present: supple, normal ROM - Respiratory Respiratory effort: normal Respiratory: bilateral: diminished, rhonchi, negative: rales, wheezing - Cardiovascular Rhythm: regular Heart Sounds: Present: S1 & S2 - Extremities Extremities: no ischemia, No edema - Abdominal General gastrointestinal: soft, non-tender, non-distended - Integumentary Integumentary: Present: clear, warm - Psychiatric Psychiatric: appropriate mood/affect, cooperative - Neurologic Neurologic: other (intubated on vent) Results - Labs CBC & Chem 7: 08/25/18 05:20 08/25/18 05:20 Labs: Laboratory Last Values WBC 12.8 K/mm3 (4.5-11.0) H 08/24/18 08:30 RBC 2.24 M/mm3 (3.65-5.03) L 08/24/18 08:30 Hgb 6.7 gm/dl (10.1-14.3) L 08/25/18 05:20 Hct 21.0 % (30.3-42.9) L 08/25/18 05:20 MCV 94 fl (79-97) 08/24/18 08:30 MCH 31 pg (28-32) 08/24/18 08:30 MCHC 33 % (30-34) 08/24/18 08:30 RDW 15.0 % (13.2-15.2) 08/24/18 08:30 Plt Count 148 K/mm3 (140-440) 08/24/18 08:30 Add Manual Diff Complete 08/24/18 08:30 Total Counted 100 08/24/18 08:30 Seg Neutrophils % First Aid Nurse 08/24/18 08:30 Seg Neuts % (Manual) 93.0 % (40.0-70.0) H 08/24/18 08:30 Band Neutrophils % 0 % 08/24/18 08:30 Lymphocytes % (Manual) 6.0 % (13.4-35.0) L 08/24/18 08:30 Reactive Lymphs % (Man) 0 % 08/24/18 08:30 Monocytes % (Manual) 1.0 % (0.0-7.3) 08/24/18 08:30 Eosinophils % (Manual) 0 % (0.0-4.3) 08/24/18 08:30 Basophils % (Manual) 0 % (0.0-1.8) 08/24/18 08:30 Metamyelocytes % 0 % 08/24/18 08:30 Myelocytes % 0 % 08/24/18 08:30 Promyelocytes % 0 % 08/24/18 08:30 Blast Cells % 0 % 08/24/18 08:30 Nucleated RBC % Not Reportable 08/24/18 08:30 Seg Neutrophils # Man 11.9 K/mm3 (1.8-7.7) H 08/24/18 08:30 Band Neutrophils # 0.0 K/mm3 08/24/18 08:30 Abs Lymphs (Manual) 3262 cells/uL (850-3900) 08/19/18 14:32 Lymphocytes # (Manual) 0.8 K/mm3 (1.2-5.4) L 08/24/18 08:30 Abs React Lymphs (Man) 0.0 K/mm3 08/24/18 08:30 Monocytes # (Manual) 0.1 K/mm3 (0.0-0.8) 08/24/18 08:30 Eosinophils # (Manual) 0.0 K/mm3 (0.0-0.4) 08/24/18 08:30 Basophils # (Manual) 0.0 K/mm3 (0.0-0.1) 08/24/18 08:30 Metamyelocytes # 0.0 K/mm3 08/24/18 08:30 Myelocytes # 0.0 K/mm3 08/24/18 08:30 Promyelocytes # 0.0 K/mm3 08/24/18 08:30 Blast Cells # 0.0 K/mm3 08/24/18 08:30 WBC Morphology Not Reportable 08/24/18 08:30 Hypersegmented Neuts Not Reportable 08/24/18 08:30 Hyposegmented Neuts Not Reportable 08/24/18 08:30 Hypogranular Neuts Not Reportable 08/24/18 08:30 Smudge Cells Not Reportable 08/24/18 08:30 Toxic Granulation Not Reportable 08/24/18 08:30 Toxic Vacuolation Not Reportable 08/24/18 08:30 Dohle Bodies Not Reportable 08/24/18 08:30 Pelger-Huet Anomaly Not Reportable 08/24/18 08:30 Rosy Rods Not Reportable 08/24/18 08:30 Platelet Estimate Consistent w auto 08/24/18 08:30 Clumped Platelets Not Reportable 08/24/18 08:30 Plt Clumps, EDTA Not Reportable 08/24/18 08:30 Large Platelets Not Reportable 08/24/18 08:30 Giant Platelets Not Reportable 08/24/18 08:30 Platelet Satelliting Not Reportable 08/24/18 08:30 Plt Morphology Comment Not Reportable 08/24/18 08:30 RBC Morphology Not Reportable 08/24/18 08:30 Dimorphic RBCs Not Reportable 08/24/18 08:30 Polychromasia Not Reportable 08/24/18 08:30 Hypochromasia Not Reportable 08/24/18 08:30 Poikilocytosis Not Reportable 08/24/18 08:30 Anisocytosis 1+ 08/24/18 08:30 Microcytosis Not Reportable 08/24/18 08:30 Macrocytosis Not Reportable 08/24/18 08:30 Spherocytes Not Reportable 08/24/18 08:30 Pappenheimer Bodies Not Reportable 08/24/18 08:30 Sickle Cells Not Reportable 08/24/18 08:30 Target Cells Not Reportable 08/24/18 08:30 Tear Drop Cells Not Reportable 08/24/18 08:30 Ovalocytes Not Reportable 08/24/18 08:30 Helmet Cells Not Reportable 08/24/18 08:30 Hernandez-Kendall Bodies Not Reportable 08/24/18 08:30 [place] Rings Not Reportable 08/24/18 08:30 [place] Cells Not Reportable 08/24/18 08:30 Bite Cells Not Reportable 08/24/18 08:30 Crenated Cell Not Reportable 08/24/18 08:30 Elliptocytes Not Reportable 08/24/18 08:30 Acanthocytes (Spur) Not Reportable 08/24/18 08:30 Rouleaux Not Reportable 08/24/18 08:30 Hemoglobin C Crystals Not Reportable 08/24/18 08:30 Schistocytes Not Reportable 08/24/18 08:30 Malaria parasites Not Reportable 08/24/18 08:30 Ceasar Bodies Not Reportable 08/24/18 08:30 Hem Pathologist Commnt No 08/24/18 08:30 D-Dimer 2768.33 ng/mlDDU (0-234) H 08/15/18 18:31 POC ABG pH 7.430 (7.35-7.45) 08/25/18 03:35 POC ABG pCO2 31.3 (35-45) L 08/23/18 21:19 POC ABG pO2 79 (80-105) L 08/25/18 03:35 POC ABG HCO3 18.9 (22-26 mml/L) 08/25/18 03:35 POC ABG Total CO2 20 (23-27mmol/L) 08/25/18 03:35 POC ABG O2 Sat 96 08/25/18 03:35 POC ABG Base Excess -5 ((-2) - (+3)mmol/L) 08/25/18 03:35 VBG pH 7.187 (7.320-7.420) L* 08/15/18 18:19 FiO2 35 % 08/25/18 03:35 Sodium 140 mmol/L (137-145) 08/25/18 05:20 Potassium 3.6 mmol/L (3.6-5.0) 08/25/18 05:20 Chloride 105.9 mmol/L (98-107) 08/25/18 05:20 Carbon Dioxide 21 mmol/L (22-30) L 08/25/18 05:20 Anion Gap 17 mmol/L 08/25/18 05:20 BUN 71 mg/dL (7-17) H 08/25/18 05:20 Creatinine 3.1 mg/dL (0.7-1.2) H D 08/25/18 05:20 Estimated GFR 15 ml/min 08/25/18 05:20 BUN/Creatinine Ratio 23 % 08/25/18 05:20 Glucose 171 mg/dL (65-100) H 08/25/18 05:20 POC Glucose 164 (70-105) H 08/24/18 18:28 Hemoglobin A1c 6.4 % (4-6) H 08/15/18 23:09 Lactic Acid 1.20 mmol/L (0.7-2.0) 08/22/18 15:29 Calcium 7.5 mg/dL (8.4-10.2) L 08/25/18 05:20 Phosphorus 4.30 mg/dL (2.5-4.5) 08/23/18 Unknown Magnesium 2.20 mg/dL (1.7-2.3) 08/23/18 Unknown Total Bilirubin 0.20 mg/dL (0.1-1.2) 08/24/18 08:30 AST 30 units/L (5-40) 08/24/18 08:30 ALT 11 units/L (7-56) 08/24/18 08:30 Alkaline Phosphatase 63 units/L (35-129) 08/24/18 08:30 Troponin T 0.317 ng/mL (0.00-0.029) H* D 08/18/18 13:39 C-Reactive Protein 4.70 mg/dL (0.00-1.30) H 08/22/18 15:29 Total Protein 5.3 g/dL (6.3-8.2) L 08/24/18 08:30 Albumin 2.2 g/dL (3.9-5) L 08/24/18 08:30 Albumin/Globulin Ratio 0.7 % 08/24/18 08:30 Triglycerides 197 mg/dL (2-149) H 08/22/18 06:45 Cholesterol 87 mg/dL (50-199) 08/15/18 18:31 LDL Cholesterol Direct 4 mg/dL (50-130) L 08/15/18 18:31 HDL Cholesterol 10 mg/dL (40-59) L 08/15/18 18:31 Cholesterol/HDL Ratio 8.70 % 08/15/18 18:31 Urine Color Rosemarie (Yellow) 08/15/18 19:15 Urine Turbidity Cloudy (Clear) 08/15/18 19:15 Urine pH 5.0 (5.0-7.0) 08/15/18 19:15 Ur Specific Cecil 1.025 (1.003-1.030) 08/15/18 19:15 Urine Protein 30 mg/dl mg/dL (Negative) 08/15/18 19:15 Urine Glucose (UA) Neg mg/dL (Negative) 08/15/18 19:15 Urine Ketones Neg mg/dL (Negative) 08/15/18 19:15 Urine Blood Mod (Negative) 08/15/18 19:15 Urine Nitrite Neg (Negative) 08/15/18 19:15 Urine Bilirubin Neg (Negative) 08/15/18 19:15 Urine Urobilinogen 2.0 mg/dL (<2.0) 08/15/18 19:15 Ur Leukocyte Esterase Mod (Negative) 08/15/18 19:15 Urine WBC (Auto) 17.0 /HPF (0.0-6.0) H 08/15/18 19:15 Urine RBC (Auto) 5.0 /HPF (0.0-6.0) 08/15/18 19:15 Urine WBC Clumps 2+ /HPF 08/15/18 19:15 Amorphous Crystals 1+ 08/15/18 19:15 Hyaline Casts 54 /LPF 08/15/18 19:15 Granular Casts 14 /LPF 08/15/18 19:15 Urine Mucus Few /HPF 08/15/18 19:15 Salicylates < 0.3 mg/dL (2.8-20.0) L 08/15/18 19:14 Urine Opiates Screen Presumptive positive 08/15/18 19:15 Urine Methadone Screen Presumptive negative 08/15/18 19:15 Acetaminophen < 5.0 ug/mL (10.0-30.0) L 08/15/18 19:14 Ur Barbiturates Screen Presumptive negative 08/15/18 19:15 Ur Phencyclidine Scrn Presumptive negative 08/15/18 19:15 Ur Amphetamines Screen Presumptive negative 08/15/18 19:15 U Benzodiazepines Scrn Presumptive negative 08/15/18 19:15 Urine Cocaine Screen Presumptive negative 08/15/18 19:15 U Marijuana (THC) Screen Presumptive negative 08/15/18 19:15 Drugs of Abuse Note Disclamer 08/15/18 19:15 Lymph Enumerat CD4/CD8 1.98 (0.86-5.00) 08/19/18 14:32 % CD3 Cells 44 % (57-85) L 08/19/18 14:32 Absolute CD3 Count 1451 cells/uL (840-3060) 08/19/18 14:32 % CD4 Cells 30 % (30-61) 08/19/18 14:32 Absolute CD4 Count 1004 cells/uL (490-1740) 08/19/18 14:32 % CD8 Cells 15 % (12-42) 08/19/18 14:32 Absolute CD8 Count 508 cells/uL (180-1170) 08/19/18 14:32 % CD19 Cells 41 % (6-29) H 08/19/18 14:32 Absolute CD19 Count 1290 cells/uL (110-660) H 08/19/18 14:32 C. difficile Toxin A&B Negative (Negative) 08/19/18 14:00 HIV 1&2 Antibody Rapid Non react (Non React) 08/18/18 13:39 HIV P24 Antigen Non react (Non React) 08/18/18 13:39 Active Medications - Current Medications Current Medications: Generic Name Dose Route Start Last Admin Trade Name Freq PRN Reason Stop Dose Admin Acetaminophen 650 mg 08/15/18 22:12 08/24/18 21:30 Tylenol PO 650 mg Q4H PRN Administration Pain MILD(1-3)/Fever >100.5/MONDRAGON Acetaminophen 650 mg 08/16/18 17:01 08/16/18 17:11 Tylenol AK 650 mg Q4H PRN Administration Pain, Mild (1-3) Albuterol 2.5 mg 08/17/18 17:00 Proventil IH Q3HRT PRN Shortness Of Breath Albuterol/Ipratropium 1 ampul 08/20/18 14:00 08/25/18 08:04 Duoneb *Not For Prn Use* IH 1 ampul Q6HRT LAMAR Administration Lipase/Protease/Amylase 1 each 08/17/18 15:55 Pancreazrashad Elizabeth 10,500 Unit FEEDTUBE PRN PRN For Clogged Feeding Tube Arformoterol Tartrate 15 mcg 08/18/18 20:00 08/24/18 19:37 Brovana Nebu IH 15 mcg Q12HRT LAMAR Administration Budesonide 0.5 mg 08/18/18 20:00 08/25/18 08:04 Pulmicort IH 0.5 mg Q12HRT LAMAR Administration Carvedilol 6.25 mg 08/15/18 22:45 08/24/18 21:32 Coreg PO 6.25 mg BID LAMAR Administration Diphenhydramine HCl 25 mg 08/22/18 11:30 08/24/18 12:35 Benadryl IV 25 mg Q24H LAMAR Administration Duloxetine HCl 60 mg 08/16/18 10:00 08/24/18 10:16 Cymbalta PO Not Given QDAY LAMAR Famotidine 20 mg 08/21/18 10:00 08/24/18 09:32 Pepcid PO 20 mg DAILY LAMAR Administration Fentanyl 50 mcg 08/15/18 21:55 08/17/18 13:36 Sublimaze IV 50 mcg Q10MIN PRN Administration ANALGESIA Hydralazine HCl 10 mg 08/19/18 13:59 08/19/18 15:06 Apresoline IV 10 mg Q3H PRN Administration Hydralazine HCl 25 mg 08/24/18 14:00 08/24/18 21:31 Apresoline PO 25 mg Q8HR LAMAR Administration Hydrophilic Ointment 1 applic 08/15/18 21:55 Vaseline Lip Therapy TP Q2HR PRN Dry Lips Fentanyl Citrate 2,000 mcg in 100 mls @ 4.082 mls/hr 08/15/18 22:00 08/24/18 22:15 Fentanyl Drip Premix IV 2 mcg/kg/hr TITR LAMAR 8.165 mls/hr Titration Protocol 1 MCG/KG/HR Propofol 1,000 mg in 100 mls @ 2.449 mls/hr 08/15/18 21:15 08/23/18 19:25 Diprivan 10 Mg/Ml IV 0 mcg/kg/min TITR LAMAR 0 mls/hr Titration Protocol 5 MCG/KG/MIN Norepinephrine 4 mg in 250 mls @ 7.5 mls/hr 08/17/18 20:00 08/25/18 08:15 Levophed Drip 4 Mg/Ns 250 Ml IV 0 mcg/min TITR LAMAR 0 mls/hr Titration Protocol 2 MCG/MIN Cefazolin Sodium 2 gm/ Sodium 100 mls @ 100 mls/hr 08/22/18 12:00 08/24/18 23:06 Chloride IV 100 mls/hr Q12HR LAMAR Administration Amphotericin B 400 mg/ 580 mls @ 250 mls/hr 08/22/18 12:00 08/24/18 13:41 Dextrose IV 250 mls/hr Q24H LAMAR Administration Sodium Chloride 1,000 mls @ 50 mls/hr 08/22/18 12:00 Nacl 0.9% 1000 Ml IV DIRECT LAMAR Sodium Bicarbonate 100 meq/ 1,100 mls @ 50 mls/hr 08/23/18 14:00 08/24/18 13:45 Dextrose IV 08/25/18 11:59 50 mls/hr DIRECT LAMAR Administration Metoclopramide HCl 5 mg 08/15/18 22:50 Reglan IV Q6H PRN Nausea And Vomiting Ondansetron HCl 4 mg 08/15/18 22:12 Zofran IV Q8H PRN Nausea And Vomiting Quetiapine Fumarate 200 mg 08/22/18 12:00 08/24/18 21:31 Seroquel PO 200 mg BID LAMAR Administration Simple Syrup 15 ml 08/17/18 15:55 Simple Syrup FEEDTUBE PRN PRN Hypoglycemia Simple Syrup 30 ml 08/17/18 15:55 Simple Syrup FEEDTUBE PRN PRN Hypoglycemia Sodium Bicarbonate 325 mg 08/17/18 15:55 Sodium Bicarbonate FEEDTUBE PRN PRN For Clogged Feeding Tube Sodium Chloride 10 ml 08/16/18 10:00 08/24/18 10:15 Sodium Chloride Flush Syringe 10 Ml IV Not Given BID LAMAR Sodium Chloride 10 ml 08/15/18 22:12 08/18/18 21:52 Sodium Chloride Flush Syringe 10 Ml IV 10 ml PRN PRN Administration LINE FLUSH Nutrition/Malnutrition Assess - Dietary Evaluation Nutrition/Malnutrition Findings: Nutrition Notes Start: 08/17/18 13 :57 Freq: Status: Active Protocol: Document 08/24/18 10:51 CP (Rec: 08/24/18 10:59 CP [id number]) Co-Sign 08/24/18 10:51 LP Nutrition Notes Initial or Follow up Reassessment Current Diagnosis Acute Kidney Injury,COPD, Diabetes,Sepsis,Hypertension, Respiratory Failure, Hyperlipidemia Other Pertinent Diagnosis AMS, hypokalemia, NSTEMI, encephalopathy, pneu, hypernatermia, shock liver Current Diet Vital AF 1.2 at 60mL/hr Labs/Tests BUN 64 Cr 2 BG 149 Pertinent Medications Reviewed Height 5 ft 7 in Weight 95.3 kg [place] Body Weight (kg) 61.36 BMI 32.9 Subjective/Other Information Per nurse, TF is stable and Na is WNL. #1 Nutrition Diagnosis Inadequate oral intake Diagnosis Progress(for reassessment Continues documentation) Is patient on ventilator? Yes Is Patient Ambulatory and/or Out of Bed No REE-([facility]-confined to bed) 1824.132 Kcal/Kg value to use for calculation 16 Approximate Energy Requirements Using 1525 kcal/Kg Calculation Used for Recommendations [facility] Additional Notes Protein needs: (2g/kg IBW) 122g/day Fluid needs: 1ml/kcal Nutrition Intervention Change Diet Order: Continue current Nutrition Support: Vital AF 1.2 at 60mL/hr with 150mL flush q4h. Kcal 1,728 Protein (gm) 108 Fluid (mL) 1,168 Goal #1 Tolerate TF Goal #2 Continue to meet at least 75% of nutrient needs via TF Anticipated Discharge Needs: Unable to determine at this time Follow-Up By: 08/31/18 Additional Comments F/U: TF tolerance
--- NOTE | 2018-08-25 09:48 | Progress Note ---
Assessment and Plan Severe sepsis Blood cultures 08/15 - yeast Sputum culture 08/15 - E.coli and Staph aureus Acute renal failure on admission - resolved Acute respiratory failure - intubated and mechanically ventilated Lactic acidosis on admission - resolved Acute transaminitis on admission Hypernatremia Altered mental status History of COPD New onset cardiomyopathy, LVEF 25-30% this admission Previous echo 03/30/2016 at [facility] revealed normal LVEF Previous stress MPI 03/29/2016 at [facility] revealed no ischemia Abnormal ECG showing LBBB, chronic Recent EGD at [facility] 08/08/2018 revealing irregular Z line, gastritis and small histal hernia Recent colonoscopy at [facility] 08/08/2018 revealing sigmoid polyp, transverse colon polyps, inflamed hemorrhoids and diverticulosis Recommend: Continue medical therapy for new onset cardiomyopathy. Further cardiac workup will depend on clinical course. Subjective Date of service: 08/25/18 Principal diagnosis: Acute hypoxemic hypercapnic Resp failure; AE-COPD; Acute kidney injury Interval history: No cardiac events overnight. On pressors for support. Objective Vital Signs Temp Pulse Pulse Resp Resp BP Pulse Ox 08/25/18 08:17 80 26 H 08/25/18 08:15 80 22 123/50 99 08/25/18 08:05 81 82 28 H 128/54 99 08/25/18 08:00 98.9 F 82 14 128/54 95 08/25/18 07:45 79 22 139/54 96 08/25/18 07:30 79 15 145/71 94 08/25/18 07:15 78 24 157/61 95 08/25/18 07:01 79 19 166/65 96 08/25/18 06:45 78 23 165/62 95 08/25/18 06:30 76 22 150/65 95 08/25/18 06:15 76 16 149/56 96 08/25/18 06:00 79 20 157/66 96 08/25/18 05:45 78 19 157/95 95 08/25/18 05:30 76 15 142/59 95 08/25/18 05:15 81 22 123/52 94 08/25/18 05:01 77 22 117/43 97 08/25/18 04:45 70 18 147/57 99 08/25/18 04:30 70 19 139/53 98 08/25/18 04:15 71 22 138/57 98 08/25/18 04:00 98.4 F 71 21 121/49 96 08/25/18 03:45 72 23 124/45 97 08/25/18 03:34 70 137/53 98 08/25/18 03:30 71 19 137/53 98 08/25/18 03:15 72 16 126/53 99 08/25/18 03:00 72 73 20 20 142/54 100 08/25/18 02:45 72 71 21 20 143/50 99 08/25/18 02:30 69 18 136/52 98 08/25/18 02:15 66 22 127/53 98 08/25/18 02:01 68 19 125/48 97 08/25/18 01:45 70 24 112/43 97 08/25/18 01:30 70 24 108/40 96 08/25/18 01:15 72 22 105/44 96 08/25/18 01:00 73 23 118/48 96 08/25/18 00:45 72 21 120/46 95 08/25/18 00:30 69 23 110/46 97 08/25/18 00:15 72 21 109/51 97 08/25/18 00:01 69 20 111/45 98 08/25/18 00:00 98.8 F 68 22 111/45 96 08/24/18 23:55 70 22 112/48 98 08/24/18 23:45 70 23 112/48 96 08/24/18 23:35 64 104/43 99 08/24/18 23:30 69 20 104/43 97 08/24/18 23:23 66 22 107/43 99 08/24/18 23:15 70 22 107/43 96 08/24/18 23:00 70 22 95/43 97 08/24/18 22:45 71 22 87/41 96 08/24/18 22:30 70 23 81/35 08/24/18 22:15 77 24 77/34 08/24/18 22:01 86 24 91/38 96 08/24/18 22:00 86 08/24/18 21:45 87 29 H 120/50 95 08/24/18 21:32 87 140/52 08/24/18 21:31 87 140/52 08/24/18 21:30 89 21 140/52 95 08/24/18 21:15 87 24 130/53 95 03/27/19 21:00 91 H 25 H 134/55 96 08/24/18 20:45 92 H 23 128/57 97 08/24/18 20:30 89 27 H 120/53 99 08/24/18 20:15 92 H 27 H 129/49 98 08/24/18 20:03 92 H 28 H 08/24/18 20:00 100.9 F H 97 H 26 H 142/60 97 08/24/18 19:48 90 28 H 08/24/18 19:45 95 H 20 137/59 98 08/24/18 19:39 94 H 130/55 96 08/24/18 19:30 92 H 27 H 130/55 96 08/24/18 19:15 96 H 19 145/55 97 08/24/18 19:01 94 H 22 141/43 97 08/24/18 18:45 90 27 H 137/57 96 08/24/18 18:30 93 H 32 H 144/53 95 08/24/18 18:15 97 H 31 H 138/59 93 08/24/18 18:01 104 H 25 H 138/55 94 08/24/18 17:45 105 H 29 H 149/94 94 08/24/18 17:40 106 H 130/55 94 08/24/18 17:30 94 H 32 H 130/55 94 08/24/18 17:25 95 H 28 H 145/50 93 08/24/18 17:15 94 H 29 H 145/50 93 08/24/18 17:00 92 H 19 140/54 95 08/24/18 16:45 88 29 H 133/52 95 08/24/18 16:30 82 30 H 122/50 96 08/24/18 16:15 82 27 H 116/45 96 08/24/18 16:00 100.7 F H 83 29 H 116/44 95 08/24/18 15:45 84 30 H 117/42 96 08/24/18 15:30 85 30 H 117/43 94 08/24/18 15:15 87 30 H 124/46 94 08/24/18 15:00 91 H 30 H 119/49 92 08/24/18 14:45 86 22 105/43 98 08/24/18 14:40 88 29 H 08/24/18 14:30 86 22 118/47 98 08/24/18 14:28 85 86 22 22 118/47 99 08/24/18 14:15 86 29 H 117/46 95 08/24/18 14:00 87 31 H 129/47 95 08/24/18 13:45 90 19 136/52 95 08/24/18 13:42 147/52 08/24/18 13:30 91 H 28 H 147/52 95 08/24/18 13:15 91 H 29 H 141/57 94 08/24/18 13:00 90 26 H 136/55 94 08/24/18 12:45 91 H 22 143/52 95 08/24/18 12:30 90 25 H 131/57 95 08/24/18 12:20 91 H 146/51 95 08/24/18 12:15 90 21 146/51 95 08/24/18 12:00 100.7 F H 89 28 H 140/52 95 08/24/18 11:45 91 H 24 144/56 96 08/24/18 11:30 86 25 H 141/91 96 08/24/18 11:15 86 30 H 136/82 96 08/24/18 11:00 88 18 130/52 96 08/24/18 10:45 83 13 136/53 96 08/24/18 10:30 83 19 128/49 97 08/24/18 10:15 83 17 126/48 96 08/24/18 10:00 81 21 119/45 96 - Physical Examination General: Other (intubated and sedated) Cardiac: Positive: Reg Rate and Rhythm - Labs and Meds CBC 08/25/18 Range/Units 05:20 Hgb 6.7 L (10.1-14.3) gm/dl Hct 21.0 L (30.3-42.9) % Comprehensive Metabolic Panel 08/25/18 Range/Units 05:20 Sodium 140 (137-145) mmol/L Potassium 3.6 (3.6-5.0) mmol/L Chloride 105.9 (98-107) mmol/L Carbon Dioxide 21 L (22-30) mmol/L BUN 71 H (7-17) mg/dL Creatinine 3.1 H D (0.7-1.2) mg/dL Glucose 171 H (65-100) mg/dL Calcium 7.5 L (8.4-10.2) mg/dL - Allied health notes Allied health notes reviewed: nursing
--- NOTE | 2018-08-25 09:59 | Progress Note ---
Assessment and Plan Severe sepsis with septic shock -Fungemia on Amphotericin Acute hypoxic-hypercapnic respiratory failure on MVS h/o COPD Acute encephalopathy( toxic-metabolic) Acute kidney injury, increase Creat -Vasomotor nephropathy h/o Chronic narcotic dependence Aspiration pneumonia/CAP New onset cardiomyopathy, LVEF 25-30% this admission Previous echo 03/30/2016 at [facility] revealed normal LVEF Previous stress MPI 03/29/2016 at [facility] revealed no ischemia Abnormal ECG showing LBBB, chronic Anemia -Recent EGD at [facility] 08/08/2018 revealing irregular Z line, gastritis and small hiatal hernia Recent colonoscopy at [facility] 08/08/2018 revealing sigmoid polyp, transverse colon polyps, inflamed hemorrhoids and diverticulosis E.coli/Staph pneumonia Hypernatremia -Continue full MVS -Wean supplemental oxygen to keep O2 sats 88-90% -Lung protective strategies -Oxygen restrictive strategies -ABGs/CXR -Antibiotics/antifungal to complete course -Discussed with pharmacy in IDT rounds to adjust Amphotericin dosing for renal function Transfuse 1 unit PRBC -VAP bundle addressed - agitation and analgesia management -Monitor renal indices -Cardioprotective measures - In view of cardiomyopathy,patient needs to be negative balance, as the d iscontinuation of positive pressure, will increase venous return and potentially cause worsening heart failure -Daily SAT's & SBT's -Sedation target for RASS 0 to -1 -Stress ulcer prophylaxis -VTE prophylaxis -Tube feedings for nutritional support -Aspiration precautions -Accuchecks with glycemic control. Target glucose of 140-180 mg/dL -Continue bronchodilators with pulmonary hygiene per RT -Maintenance of sleep -wake cycle -Mobility as tolerated by hemodynamics -Influenza and pneumonia vaccination per protocol ..care plan discussed at length with RN/RT at the bedside Discussed with the at the bedside. Updated him and care plan discussed. PROGNOSIS :GUARDED CONDITION: CRITICAL CODE STATUS: FULL CODE The high probability of a clinically significant, sudden or life-threatening deterioration of the [respiratory, cardiovascular, renal] system(s) required my full and direct attention, intervention and personal management. The aggregate critical care time was [35] minutes without overlap. Time includes spent on; [x] Data Review and interpretation [x] Patient assessment and monitoring of vital signs [x] Documentation [x] Medication orders and management Subjective Date of service: 08/25/18 Principal diagnosis: Acute hypoxemic hypercapnic Resp failure; AE-COPD; Acute kidney injury Interval history: Follow up: Aspiration PNA, Abnormal CXR, Hypotension, Acute renal failure, Acute encephaloapthy, Acute hypoxemic respiratory failure on MVS Seen and examined. Vitals, labs, medications, chart and imaging reviewed. 24 hours events reviewed. Agitation on going per RN. Fevers overnight, Tmax of 100.9, no vomiting. remains on full mechanical ventilatory support, no vasopressors, on fentanyl and low dose propofol. Less tacyhpnic, spontaneous eye opening, moving all extremities. at the bedside Episode of hypotension overnight requiring vasopressor support, norepinephrine up to 12mcg, off now. Xray of the hip ordered by ID Objective Vital Signs - 12hr 08/24/18 08/24/18 08/24/18 22:00 22:01 22:15 Temperature Pulse Rate 86 86 77 Pulse Rate [ Anterior Bilateral Throughout] Respiratory 24 24 Rate Respiratory Rate [Anterior Bilateral Throughout] Blood Pressure 91/38 77/34 O2 Sat by Pulse 96 Oximetry 08/24/18 08/24/18 08/24/18 22:30 22:45 23:00 Temperature Pulse Rate 70 71 70 Pulse Rate [ Anterior Bilateral Throughout] Respiratory 23 22 22 Rate Respiratory Rate [Anterior Bilateral Throughout] Blood Pressure 81/35 87/41 95/43 O2 Sat by Pulse 96 97 Oximetry 08/24/18 08/24/18 08/24/18 23:15 23:23 23:30 Temperature Pulse Rate 70 66 69 Pulse Rate [ Anterior Bilateral Throughout] Respiratory 22 22 20 Rate Respiratory Rate [Anterior Bilateral Throughout] Blood Pressure 107/43 107/43 104/43 O2 Sat by Pulse 96 99 97 Oximetry 08/24/18 08/24/18 08/24/18 23:35 23:45 23:55 Temperature Pulse Rate 64 70 70 Pulse Rate [ Anterior Bilateral Throughout] Respiratory 23 22 Rate Respiratory Rate [Anterior Bilateral Throughout] Blood Pressure 104/43 112/48 112/48 O2 Sat by Pulse 99 96 98 Oximetry 08/25/18 08/25/18 08/25/18 00:00 00:01 00:15 Temperature 98.8 F Pulse Rate 68 69 72 Pulse Rate [ Anterior Bilateral Throughout] Respiratory 22 20 21 Rate Respiratory Rate [Anterior Bilateral Throughout] Blood Pressure 111/45 111/45 109/51 O2 Sat by Pulse 96 98 97 Oximetry 08/25/18 08/25/18 08/25/18 00:30 00:45 01:00 Temperature Pulse Rate 69 72 73 Pulse Rate [ Anterior Bilateral Throughout] Respiratory 23 21 23 Rate Respiratory Rate [Anterior Bilateral Throughout] Blood Pressure 110/46 120/46 118/48 O2 Sat by Pulse 97 95 96 Oximetry 08/25/18 08/25/18 08/25/18 01:15 01:30 01:45 Temperature Pulse Rate 72 70 70 Pulse Rate [ Anterior Bilateral Throughout] Respiratory 22 24 24 Rate Respiratory Rate [Anterior Bilateral Throughout] Blood Pressure 105/44 108/40 112/43 O2 Sat by Pulse 96 96 97 Oximetry 08/25/18 08/25/18 08/25/18 02:01 02:15 02:30 Temperature Pulse Rate 68 66 69 Pulse Rate [ Anterior Bilateral Throughout] Respiratory 19 22 18 Rate Respiratory Rate [Anterior Bilateral Throughout] Blood Pressure 125/48 127/53 136/52 O2 Sat by Pulse 97 98 98 Oximetry 08/25/18 08/25/18 08/25/18 02:45 03:00 03:15 Temperature Pulse Rate 72 72 72 Pulse Rate [ 71 73 Anterior Bilateral Throughout] Respiratory 21 20 16 Rate Respiratory 20 20 Rate [Anterior Bilateral Throughout] Blood Pressure 143/50 142/54 126/53 O2 Sat by Pulse 99 100 99 Oximetry 08/25/18 08/25/18 08/25/18 03:30 03:34 03:45 Temperature Pulse Rate 71 70 72 Pulse Rate [ Anterior Bilateral Throughout] Respiratory 19 23 Rate Respiratory Rate [Anterior Bilateral Throughout] Blood Pressure 137/53 137/53 124/45 O2 Sat by Pulse 98 98 97 Oximetry 08/25/18 08/25/18 08/25/18 04:00 04:15 04:30 Temperature 98.4 F Pulse Rate 71 71 70 Pulse Rate [ Anterior Bilateral Throughout] Respiratory 21 22 19 Rate Respiratory Rate [Anterior Bilateral Throughout] Blood Pressure 121/49 138/57 139/53 O2 Sat by Pulse 96 98 98 Oximetry 08/25/18 08/25/18 08/25/18 04:45 05:01 05:15 Temperature Pulse Rate 70 77 81 Pulse Rate [ Anterior Bilateral Throughout] Respiratory 18 22 22 Rate Respiratory Rate [Anterior Bilateral Throughout] Blood Pressure 147/57 117/43 123/52 O2 Sat by Pulse 99 97 94 Oximetry 08/25/18 08/25/18 08/25/18 05:30 05:45 06:00 Temperature Pulse Rate 76 78 79 Pulse Rate [ Anterior Bilateral Throughout] Respiratory 15 19 20 Rate Respiratory Rate [Anterior Bilateral Throughout] Blood Pressure 142/59 157/95 157/66 O2 Sat by Pulse 95 95 96 Oximetry 08/25/18 08/25/18 08/25/18 06:15 06:30 06:45 Temperature Pulse Rate 76 76 78 Pulse Rate [ Anterior Bilateral Throughout] Respiratory 16 22 23 Rate Respiratory Rate [Anterior Bilateral Throughout] Blood Pressure 149/56 150/65 165/62 O2 Sat by Pulse 96 95 95 Oximetry 08/25/18 08/25/18 08/25/18 07:01 07:15 07:30 Temperature Pulse Rate 79 78 79 Pulse Rate [ Anterior Bilateral Throughout] Respiratory 19 24 15 Rate Respiratory Rate [Anterior Bilateral Throughout] Blood Pressure 166/65 157/61 145/71 O2 Sat by Pulse 96 95 94 Oximetry 08/25/18 08/25/18 08/25/18 07:45 08:00 08:05 Temperature 98.9 F Pulse Rate 79 82 81 Pulse Rate [ 82 Anterior Bilateral Throughout] Respiratory 22 14 Rate Respiratory 28 H Rate [Anterior Bilateral Throughout] Blood Pressure 139/54 128/54 128/54 O2 Sat by Pulse 96 95 99 Oximetry 08/25/18 08/25/18 08:15 08:17 Temperature Pulse Rate 80 Pulse Rate [ 80 Anterior Bilateral Throughout] Respiratory 22 Rate Respiratory 26 H Rate [Anterior Bilateral Throughout] Blood Pressure 123/50 O2 Sat by Pulse 99 Oximetry Constitutional: appears uncomfortable, other (elderly looking CF, normocephalic and atraumatic) Eyes: non-icteric ENT: oropharynx moist, other (ETT 23 cm MARTHA) Neck: supple, no lymphadenopathy, no JVD, other (no thyromegaly) Effort: mildly labored Ascultation: Bilateral: diminished breath sounds, rales, rhonchi (right lung field) Percussion: Bilateral: not dull Cardiovascular: regular rate and rhythm Gastrointestinal: normoactive bowel sounds, soft, non-tender, non-distended Integumentary: normal Extremities: no cyanosis, no edema, no ischemia or petechiae Neurologic: non-focal exam (grossly), pupils equal and round, CN II-XII normal, motor strength normal and Psychiatric: affect normal, anxious CBC and BMP: 08/27/18 04:35 08/27/18 04:35 ABG, PT/INR, D-dimer: ABG POC ABG pH 7.430 (7.35-7.45) 08/25/18 03:35 POC ABG pCO2 31.3 (35-45) L 08/23/18 21:19 POC ABG pO2 79 (80-105) L 08/25/18 03:35 POC ABG HCO3 18.9 (22-26 mml/L) 08/25/18 03:35 POC ABG Total CO2 20 (23-27mmol/L) 08/25/18 03:35 POC ABG O2 Sat 96 08/25/18 03:35 PT/INR, D-dimer D-Dimer 2768.33 ng/mlDDU (0-234) H 08/15/18 18:31 Abnormal lab findings: Abnormal Labs 08/15/18 08/15/18 08/15/18 17:52 17:52 17:52 WBC 12.7 H RBC 3.25 L Hgb Hct RDW Plt Count Seg Neuts % (Manual) Lymphocytes % (Manual) 6.0 L Nucleated RBC % Seg Neutrophils # Man Lymphocytes # (Manual) 0.8 L D-Dimer POC ABG pH POC ABG pCO2 POC ABG pO2 VBG pH Sodium Potassium 3.4 L Chloride 94.6 L Carbon Dioxide 17 L BUN 67 H Creatinine 3.5 H Glucose 131 H POC Glucose Hemoglobin A1c Lactic Acid 5.20 H* Calcium 7.6 L Phosphorus AST 887 H ALT 316 H Troponin T C-Reactive Protein Total Protein Albumin 3.1 L Triglycerides LDL Cholesterol Direct HDL Cholesterol Urine WBC (Auto) Salicylates Acetaminophen % CD3 Cells % CD19 Cells Absolute CD19 Count 08/15/18 08/15/18 08/15/18 18:11 18:19 18:31 WBC RBC Hgb Hct RDW Plt Count Seg Neuts % (Manual) Lymphocytes % (Manual) Nucleated RBC % Seg Neutrophils # Man Lymphocytes # (Manual) D-Dimer 2768.33 H POC ABG pH 7.173 L POC ABG pCO2 47.8 H POC ABG pO2 177 H VBG pH 7.187 L* Sodium Potassium Chloride Carbon Dioxide BUN Creatinine Glucose POC Glucose Hemoglobin A1c Lactic Acid Calcium Phosphorus AST ALT Troponin T C-Reactive Protein Total Protein Albumin Triglycerides LDL Cholesterol Direct HDL Cholesterol Urine WBC (Auto) Salicylates Acetaminophen % CD3 Cells % CD19 Cells Absolute CD19 Count 08/15/18 08/15/18 08/15/18 18:31 19:14 19:14 WBC RBC Hgb Hct RDW Plt Count Seg Neuts % (Manual) Lymphocytes % (Manual) Nucleated RBC % Seg Neutrophils # Man Lymphocytes # (Manual) D-Dimer POC ABG pH POC ABG pCO2 POC ABG pO2 VBG pH Sodium Potassium Chloride Carbon Dioxide BUN Creatinine Glucose POC Glucose Hemoglobin A1c Lactic Acid 2.70 H* Calcium Phosphorus AST ALT Troponin T 0.454 H* C-Reactive Protein Total Protein Albumin Triglycerides 356 H LDL Cholesterol Direct 4 L HDL Cholesterol 10 L Urine WBC (Auto) Salicylates < 0.3 L Acetaminophen % CD3 Cells % CD19 Cells Absolute CD19 Count 08/15/18 08/15/18 08/15/18 19:14 19:15 23:09 WBC RBC Hgb Hct RDW Plt Count Seg Neuts % (Manual) Lymphocytes % (Manual) Nucleated RBC % Seg Neutrophils # Man Lymphocytes # (Manual) D-Dimer POC ABG pH POC ABG pCO2 POC ABG pO2 VBG pH Sodium Potassium Chloride Carbon Dioxide BUN Creatinine Glucose POC Glucose Hemoglobin A1c Lactic Acid 3.20 H* Calcium Phosphorus AST ALT Troponin T C-Reactive Protein Total Protein Albumin Triglycerides LDL Cholesterol Direct HDL Cholesterol Urine WBC (Auto) 17.0 H Salicylates Acetaminophen < 5.0 L % CD3 Cells % CD19 Cells Absolute CD19 Count 08/15/18 08/16/18 08/16/18 23:09 01:41 05:38 WBC RBC 3.07 L Hgb 9.8 L Hct 28.7 L RDW Plt Count Seg Neuts % (Manual) 84.0 H Lymphocytes % (Manual) 6.0 L Nucleated RBC % 4.0 H Seg Neutrophils # Man Lymphocytes # (Manual) 0.5 L D-Dimer POC ABG pH 7.323 L POC ABG pCO2 34.7 L POC ABG pO2 78 L VBG pH Sodium Potassium Chloride Carbon Dioxide BUN Creatinine Glucose POC Glucose Hemoglobin A1c 6.4 H Lactic Acid Calcium Phosphorus AST ALT Troponin T C-Reactive Protein Total Protein Albumin Triglycerides LDL Cholesterol Direct HDL Cholesterol Urine WBC (Auto) Salicylates Acetaminophen % CD3 Cells % CD19 Cells Absolute CD19 Count 08/16/18 08/16/18 08/17/18 05:38 22:43 03:42 WBC RBC Hgb Hct RDW Plt Count Seg Neuts % (Manual) Lymphocytes % (Manual) Nucleated RBC % Seg Neutrophils # Man Lymphocytes # (Manual) D-Dimer POC ABG pH POC ABG pCO2 POC ABG pO2 VBG pH Sodium Potassium 2.9 L* 3.1 L 2.9 L* Chloride 108.8 H 111.9 H Carbon Dioxide 17 L 19 L 21 L BUN 62 H 40 H 33 H Creatinine 2.0 H Glucose 139 H 145 H POC Glucose Hemoglobin A1c Lactic Acid Calcium 7.8 L 8.3 L Phosphorus 1.50 L AST 619 H ALT 353 H Troponin T C-Reactive Protein Total Protein 6.1 L Albumin 2.8 L Triglycerides LDL Cholesterol Direct HDL Cholesterol Urine WBC (Auto) Salicylates Acetaminophen % CD3 Cells % CD19 Cells Absolute CD19 Count 08/17/18 08/17/18 08/18/18 11:02 16:42 03:28 WBC RBC Hgb Hct RDW Plt Count Seg Neuts % (Manual) Lymphocytes % (Manual) Nucleated RBC % Seg Neutrophils # Man Lymphocytes # (Manual) D-Dimer POC ABG pH 7.483 H 7.499 H POC ABG pCO2 POC ABG pO2 VBG pH Sodium 147 H Potassium 3.2 L Chloride 115.8 H Carbon Dioxide BUN 23 H Creatinine Glucose 121 H POC Glucose Hemoglobin A1c Lactic Acid Calcium 8.1 L Phosphorus 2.30 L D AST ALT Troponin T C-Reactive Protein Total Protein Albumin Triglycerides LDL Cholesterol Direct HDL Cholesterol Urine WBC (Auto) Salicylates Acetaminophen % CD3 Cells % CD19 Cells Absolute CD19 Count 08/18/18 08/18/18 08/18/18 04:10 13:39 13:39 WBC RBC Hgb Hct RDW Plt Count Seg Neuts % (Manual) Lymphocytes % (Manual) Nucleated RBC % Seg Neutrophils # Man Lymphocytes # (Manual) D-Dimer POC ABG pH POC ABG pCO2 POC ABG pO2 VBG pH Sodium 147 H Potassium 3.3 L Chloride 111.9 H Carbon Dioxide BUN 21 H Creatinine Glucose 113 H POC Glucose Hemoglobin A1c Lactic Acid Calcium Phosphorus 1.50 L D AST ALT Troponin T 0.317 H* D C-Reactive Protein 10.70 H Total Protein Albumin Triglycerides LDL Cholesterol Direct HDL Cholesterol Urine WBC (Auto) Salicylates Acetaminophen % CD3 Cells % CD19 Cells Absolute CD19 Count 08/18/18 08/19/18 08/19/18 16:51 03:47 04:15 WBC RBC Hgb Hct RDW Plt Count Seg Neuts % (Manual) Lymphocytes % (Manual) Nucleated RBC % Seg Neutrophils # Man Lymphocytes # (Manual) D-Dimer POC ABG pH 7.454 H 7.482 H POC ABG pCO2 POC ABG pO2 65 L VBG pH Sodium 154 H Potassium 3.3 L Chloride 115.1 H Carbon Dioxide BUN 19 H Creatinine Glucose 117 H POC Glucose Hemoglobin A1c Lactic Acid Calcium 7.8 L Phosphorus AST ALT Troponin T C-Reactive Protein Total Protein Albumin Triglycerides LDL Cholesterol Direct HDL Cholesterol Urine WBC (Auto) Salicylates Acetaminophen % CD3 Cells % CD19 Cells Absolute CD19 Count 08/19/18 08/19/18 08/20/18 14:32 16:18 03:51 WBC RBC Hgb Hct RDW Plt Count Seg Neuts % (Manual) Lymphocytes % (Manual) Nucleated RBC % Seg Neutrophils # Man Lymphocytes # (Manual) D-Dimer POC ABG pH 7.483 H POC ABG pCO2 33.4 L POC ABG pO2 51 L 74 L VBG pH Sodium Potassium Chloride Carbon Dioxide BUN Creatinine Glucose POC Glucose Hemoglobin A1c Lactic Acid Calcium Phosphorus AST ALT Troponin T C-Reactive Protein Total Protein Albumin Triglycerides LDL Cholesterol Direct HDL Cholesterol Urine WBC (Auto) Salicylates Acetaminophen % CD3 Cells 44 L % CD19 Cells 41 H Absolute CD19 Count 1290 H 08/20/18 08/21/18 08/21/18 05:25 03:54 05:45 WBC 24.1 H RBC 2.83 L Hgb 8.8 L Hct 26.7 L RDW 15.7 H Plt Count 127 L Seg Neuts % (Manual) 94.0 H Lymphocytes % (Manual) 4.0 L Nucleated RBC % 1.0 H Seg Neutrophils # Man 22.7 H Lymphocytes # (Manual) 1.0 L D-Dimer POC ABG pH POC ABG pCO2 31.9 L POC ABG pO2 66 L VBG pH Sodium 146 H D Potassium Chloride 111.2 H Carbon Dioxide BUN 24 H Creatinine Glucose 141 H POC Glucose Hemoglobin A1c Lactic Acid Calcium 8.1 L Phosphorus AST 65 H ALT 104 H Troponin T C-Reactive Protein Total Protein 6.2 L Albumin 2.6 L Triglycerides LDL Cholesterol Direct HDL Cholesterol Urine WBC (Auto) Salicylates Acetaminophen % CD3 Cells % CD19 Cells Absolute CD19 Count 08/21/18 08/22/18 08/22/18 05:45 06:20 06:45 WBC RBC Hgb Hct RDW Plt Count Seg Neuts % (Manual) Lymphocytes % (Manual) Nucleated RBC % Seg Neutrophils # Man Lymphocytes # (Manual) D-Dimer POC ABG pH POC ABG pCO2 32.9 L POC ABG pO2 VBG pH Sodium Potassium 3.5 L Chloride 109.4 H 112.4 H Carbon Dioxide 21 L 20 L BUN 50 H 61 H Creatinine 2.0 H D 1.9 H Glucose 144 H 154 H POC Glucose Hemoglobin A1c Lactic Acid Calcium 7.6 L 7.8 L Phosphorus AST ALT Troponin T C-Reactive Protein Total Protein 5.3 L Albumin 2.1 L Triglycerides LDL Cholesterol Direct HDL Cholesterol Urine WBC (Auto) Salicylates Acetaminophen % CD3 Cells % CD19 Cells Absolute CD19 Count 08/22/18 08/22/18 08/22/18 06:45 15:29 18:40 WBC RBC Hgb Hct RDW Plt Count Seg Neuts % (Manual) Lymphocytes % (Manual) Nucleated RBC % Seg Neutrophils # Man Lymphocytes # (Manual) D-Dimer POC ABG pH POC ABG pCO2 POC ABG pO2 VBG pH Sodium Potassium Chloride Carbon Dioxide BUN Creatinine Glucose POC Glucose 169 H Hemoglobin A1c Lactic Acid Calcium Phosphorus AST ALT Troponin T C-Reactive Protein 4.70 H Total Protein Albumin Triglycerides 197 H LDL Cholesterol Direct HDL Cholesterol Urine WBC (Auto) Salicylates Acetaminophen % CD3 Cells % CD19 Cells Absolute CD19 Count 08/23/18 08/23/18 08/23/18 03:59 21:19 Unknown WBC 12.1 H RBC 2.29 L Hgb 7.1 L Hct 21.7 L RDW 15.7 H Plt Count 106 L Seg Neuts % (Manual) 92.0 H Lymphocytes % (Manual) 4.0 L Nucleated RBC % Seg Neutrophils # Man 11.1 H Lymphocytes # (Manual) 0.5 L D-Dimer POC ABG pH 7.306 L POC ABG pCO2 31.3 L POC ABG pO2 119 H 75 L VBG pH Sodium Potassium Chloride Carbon Dioxide BUN Creatinine Glucose POC Glucose Hemoglobin A1c Lactic Acid Calcium Phosphorus AST ALT Troponin T C-Reactive Protein Total Protein Albumin Triglycerides LDL Cholesterol Direct HDL Cholesterol Urine WBC (Auto) Salicylates Acetaminophen % CD3 Cells % CD19 Cells Absolute CD19 Count 08/23/18 08/24/18 08/24/18 Unknown 04:18 08:30 WBC 12.8 H RBC 2.24 L Hgb 7.0 L Hct 21.1 L RDW Plt Count Seg Neuts % (Manual) 93.0 H Lymphocytes % (Manual) 6.0 L Nucleated RBC % Seg Neutrophils # Man 11.9 H Lymphocytes # (Manual) 0.8 L D-Dimer POC ABG pH POC ABG pCO2 POC ABG pO2 78 L VBG pH Sodium Potassium Chloride 115.7 H Carbon Dioxide 21 L BUN 64 H Creatinine 2.0 H Glucose 149 H POC Glucose Hemoglobin A1c Lactic Acid Calcium 7.5 L Phosphorus AST ALT Troponin T C-Reactive Protein Total Protein 4.8 L Albumin 2.0 L Triglycerides LDL Cholesterol Direct HDL Cholesterol Urine WBC (Auto) Salicylates Acetaminophen % CD3 Cells % CD19 Cells Absolute CD19 Count 08/24/18 08/24/18 08/24/18 08:30 17:44 18:28 WBC RBC Hgb Hct RDW Plt Count Seg Neuts % (Manual) Lymphocytes % (Manual) Nucleated RBC % Seg Neutrophils # Man Lymphocytes # (Manual) D-Dimer POC ABG pH 7.474 H POC ABG pCO2 POC ABG pO2 61 L VBG pH Sodium Potassium Chloride 108.3 H Carbon Dioxide 20 L BUN 65 H Creatinine 2.0 H Glucose 167 H POC Glucose 164 H Hemoglobin A1c Lactic Acid Calcium 7.7 L Phosphorus AST ALT Troponin T C-Reactive Protein Total Protein 5.3 L Albumin 2.2 L Triglycerides LDL Cholesterol Direct HDL Cholesterol Urine WBC (Auto) Salicylates Acetaminophen % CD3 Cells % CD19 Cells Absolute CD19 Count 08/25/18 08/25/18 08/25/18 03:35 05:20 05:20 WBC RBC Hgb 6.7 L Hct 21.0 L RDW Plt Count Seg Neuts % (Manual) Lymphocytes % (Manual) Nucleated RBC % Seg Neutrophils # Man Lymphocytes # (Manual) D-Dimer POC ABG pH POC ABG pCO2 POC ABG pO2 79 L VBG pH Sodium Potassium Chloride Carbon Dioxide 21 L BUN 71 H Creatinine 3.1 H D Glucose 171 H POC Glucose Hemoglobin A1c Lactic Acid Calcium 7.5 L Phosphorus AST ALT Troponin T C-Reactive Protein Total Protein Albumin Triglycerides LDL Cholesterol Direct HDL Cholesterol Urine WBC (Auto) Salicylates Acetaminophen % CD3 Cells % CD19 Cells Absolute CD19 Count 08/25/18 05:20 WBC RBC Hgb Hct RDW Plt Count Seg Neuts % (Manual) Lymphocytes % (Manual) Nucleated RBC % Seg Neutrophils # Man Lymphocytes # (Manual) D-Dimer POC ABG pH POC ABG pCO2 POC ABG pO2 VBG pH Sodium Potassium Chloride Carbon Dioxide BUN Creatinine Glucose POC Glucose Hemoglobin A1c Lactic Acid Calcium Phosphorus AST ALT Troponin T C-Reactive Protein 5.00 H Total Protein Albumin Triglycerides LDL Cholesterol Direct HDL Cholesterol Urine WBC (Auto) Salicylates Acetaminophen % CD3 Cells % CD19 Cells Absolute CD19 Count Chest x-ray: image reviewed Allied health notes reviewed: RT
--- NOTE | 2018-08-25 10:01 | XRay Report ---
LEFT HIP, 2 views: History: Left hip prosthesis, check effusion, persistent fever. The left hip replacement hardware appears in good position. There is no evidence for loosening or infection on x-ray. I cannot assess for an effusion on x-ray. There is normal alignment of the left hip. No evidence for fracture or bone lesion. IMPRESSION: Unremarkable appearance of the left hip prosthesis.
[2018-08-25] MEDS: ceFAZolin 2 GM in NACL 0.9% 100 ML IV SCH (10:40)
[2018-08-25] MEDS: COREG PO SCH ×2 (10:45→21:30)
[2018-08-25] MEDS: PEPCID PO SCH (10:45)
[2018-08-25] MEDS: fentaNYL DRIP Premix 2,000 MCG/100 ML BAG IV SCH ×2 (10:46→23:04)
[2018-08-25] MEDS: NACL 0.9% 1000 ML 1,000 ML IV SCH (10:52)
[2018-08-25] MEDS: BENADRYL IV SCH (12:35)
[2018-08-25] MEDS ORDERED: NACL 0.9% 500 ML 500 ML ONE (12:50)
[2018-08-25] MEDS: ABELCET IV SCH (13:11)
[2018-08-25] MEDS: D5W IV SCH (13:11)
[2018-08-25] MEDS: BROVANA NEBU IH SCH ×2 (14:53→19:17)
[2018-08-25] MEDS: DIPRIVAN 10 MG/ML 1,000 MG/100 ML BOTTLE IV SCH (15:34)
--- NOTE | 2018-08-25 15:57 | Progress Note ---
Assessment and Plan 1. Acute kidney injury: Recurrent vasomotor CHANDANA. Creatinine leveled had increased from 2 to 3.1 today. Increase in the creatinine is likely due to hypotension. Continue IV fluids. Monitor renal function. Renal prognosis is guarded. Avoid nephrotoxic agents. Meds dosage based on GFR. D/w and Pharmacist to Renally dose Amphotericin. 2. FEN: Hypokalemia, monitor and replete. Hypernatremia, improved. Metabolic acidosis, monitor. 3. Acute encephalopathy. 4. Respiratory failure: On vent. 5. Sepsis: Fungemia. Followed by ID. 6. Dilated cardiomyopathy with systolic LV dysfunction. 7. Anemia: PRBC today. D/w her at the bedside. Subjective Date of service: 08/25/18 Principal diagnosis: Acute hypoxemic hypercapnic Resp failure; AE-COPD; Acute kidney injury Interval history: Patient was seen and examined at the bedside. Objective - Vital Signs Vital signs: Vital Signs - 12hr 08/25/18 08/25/18 08/25/18 04:00 04:15 04:30 Temperature 98.4 F Pulse Rate 71 71 70 Pulse Rate [ Anterior Bilateral Throughout] Respiratory 21 22 19 Rate Respiratory Rate [Anterior Bilateral Throughout] Blood Pressure 121/49 138/57 139/53 O2 Sat by Pulse 96 98 98 Oximetry 08/25/18 08/25/18 08/25/18 04:45 05:01 05:15 Temperature Pulse Rate 70 77 81 Pulse Rate [ Anterior Bilateral Throughout] Respiratory 18 22 22 Rate Respiratory Rate [Anterior Bilateral Throughout] Blood Pressure 147/57 117/43 123/52 O2 Sat by Pulse 99 97 94 Oximetry 08/25/18 08/25/18 08/25/18 05:30 05:45 06:00 Temperature Pulse Rate 76 78 79 Pulse Rate [ Anterior Bilateral Throughout] Respiratory 15 19 20 Rate Respiratory Rate [Anterior Bilateral Throughout] Blood Pressure 142/59 157/95 157/66 O2 Sat by Pulse 95 95 96 Oximetry 08/25/18 08/25/18 08/25/18 06:15 06:30 06:45 Temperature Pulse Rate 76 76 78 Pulse Rate [ Anterior Bilateral Throughout] Respiratory 16 22 23 Rate Respiratory Rate [Anterior Bilateral Throughout] Blood Pressure 149/56 150/65 165/62 O2 Sat by Pulse 96 95 95 Oximetry 03/28/19 03/28/19 03/28/19 07:01 07:15 07:30 Temperature Pulse Rate 79 78 79 Pulse Rate [ Anterior Bilateral Throughout] Respiratory 19 24 15 Rate Respiratory Rate [Anterior Bilateral Throughout] Blood Pressure 166/65 157/61 145/71 O2 Sat by Pulse 96 95 94 Oximetry 08/25/18 08/25/18 08/25/18 07:45 08:00 08:05 Temperature 98.9 F Pulse Rate 79 82 81 Pulse Rate [ 82 Anterior Bilateral Throughout] Respiratory 22 14 Rate Respiratory 28 H Rate [Anterior Bilateral Throughout] Blood Pressure 139/54 128/54 128/54 O2 Sat by Pulse 96 95 99 Oximetry 08/25/18 08/25/18 08/25/18 08:15 08:17 08:30 Temperature Pulse Rate 80 80 Pulse Rate [ 80 Anterior Bilateral Throughout] Respiratory 22 16 Rate Respiratory 26 H Rate [Anterior Bilateral Throughout] Blood Pressure 123/50 129/51 O2 Sat by Pulse 99 97 Oximetry 08/25/18 08/25/18 08/25/18 08:45 09:00 09:15 Temperature Pulse Rate 79 78 79 Pulse Rate [ Anterior Bilateral Throughout] Respiratory 25 H 17 17 Rate Respiratory Rate [Anterior Bilateral Throughout] Blood Pressure 123/48 114/42 119/49 O2 Sat by Pulse 96 95 96 Oximetry 08/25/18 08/25/18 08/25/18 09:30 09:45 10:00 Temperature Pulse Rate 78 79 75 Pulse Rate [ Anterior Bilateral Throughout] Respiratory 18 15 18 Rate Respiratory Rate [Anterior Bilateral Throughout] Blood Pressure 120/54 119/43 119/53 O2 Sat by Pulse 96 96 96 Oximetry 08/25/18 08/25/18 08/25/18 10:15 10:31 10:45 Temperature Pulse Rate 81 79 80 Pulse Rate [ Anterior Bilateral Throughout] Respiratory 18 20 18 Rate Respiratory Rate [Anterior Bilateral Throughout] Blood Pressure 118/99 122/53 134/59 O2 Sat by Pulse 95 98 98 Oximetry 08/25/18 08/25/18 08/25/18 11:00 11:15 11:31 Temperature Pulse Rate 79 86 79 Pulse Rate [ Anterior Bilateral Throughout] Respiratory 20 18 23 Rate Respiratory Rate [Anterior Bilateral Throughout] Blood Pressure 140/56 116/49 108/44 O2 Sat by Pulse 97 96 96 Oximetry 08/25/18 08/25/18 08/25/18 11:45 12:00 12:15 Temperature 99 F Pulse Rate 74 70 68 Pulse Rate [ Anterior Bilateral Throughout] Respiratory 21 24 23 Rate Respiratory Rate [Anterior Bilateral Throughout] Blood Pressure 109/40 87/38 95/39 O2 Sat by Pulse 100 96 96 Oximetry 08/25/18 08/25/18 08/25/18 12:30 12:45 13:00 Temperature 99.5 F Pulse Rate 66 67 68 Pulse Rate [ Anterior Bilateral Throughout] Respiratory 22 22 19 Rate Respiratory Rate [Anterior Bilateral Throughout] Blood Pressure 99/37 96/37 106/46 O2 Sat by Pulse 97 97 97 Oximetry 08/25/18 08/25/18 08/25/18 13:15 13:22 13:30 Temperature Pulse Rate 68 67 68 Pulse Rate [ Anterior Bilateral Throughout] Respiratory 22 23 Rate Respiratory Rate [Anterior Bilateral Throughout] Blood Pressure 112/46 112/46 115/46 O2 Sat by Pulse 98 100 99 Oximetry 08/25/18 08/25/18 08/25/18 13:45 14:00 14:15 Temperature Pulse Rate 68 70 73 Pulse Rate [ Anterior Bilateral Throughout] Respiratory 23 22 19 Rate Respiratory Rate [Anterior Bilateral Throughout] Blood Pressure 109/42 115/46 123/49 O2 Sat by Pulse 100 100 100 Oximetry 08/25/18 08/25/18 08/25/18 14:31 14:45 14:53 Temperature Pulse Rate 79 78 Pulse Rate [ 81 Anterior Bilateral Throughout] Respiratory 24 14 Rate Respiratory 25 H Rate [Anterior Bilateral Throughout] Blood Pressure 137/62 148/63 O2 Sat by Pulse 95 97 Oximetry 08/25/18 15:05 Temperature Pulse Rate Pulse Rate [ 92 H Anterior Bilateral Throughout] Respiratory Rate Respiratory 30 H Rate [Anterior Bilateral Throughout] Blood Pressure O2 Sat by Pulse Oximetry - General Appearance General appearance: well-developed, well-nourished, appears stated age, intubat ed, other (on vent) EENT: ATNC, PERRL Neck: supple Respiratory: Present: Other (coarse breath sounds) Cardiology: regular, S1S2, no murmurs Gastrointestinal: normoactive bowel sounds, no tenderness, no distended Integumentary: no rash, warm and dry Neurologic: other (appears alert) Musculoskeletal: other (trace dependent edema) - Lab 08/25/18 05:20 08/25/18 05:20 Most recent lab results Calcium 7.5 mg/dL (8.4-10.2) L 08/25/18 05:20 Phosphorus 4.30 mg/dL (2.5-4.5) 08/23/18 Unknown Magnesium 2.20 mg/dL (1.7-2.3) 08/23/18 Unknown Medications & Allergies - Medications Allergies/Adverse Reactions: Allergies No Known Allergies Allergy (Unverified 08/15/18 16:49) Home Medications: Home Medications Medication Instructions Recorded Confirmed Last Taken Type Carvedilol 6.25 mg PO BID 08/15/18 08/15/18 Unknown History DULoxetine 60 mg PO QDAY 08/15/18 08/15/18 Unknown History Gabapentin 600 mg PO Q6HR PRN 08/15/18 08/15/18 Unknown History Methylphenidate 5 mg PO TID 08/15/18 08/15/18 Unknown History Morphabond ER 60 mg PO Q12HR 08/15/18 08/15/18 Unknown History Pravastatin Sodium 10 mg PO QDAY 08/15/18 08/15/18 Unknown History Tizanidine HCl 4 mg PO Q12HR 08/15/18 08/15/18 Unknown History oxyCODONE /ACETAMINOPHEN 7.5 - 325 mg PO Q8HR 08/15/18 08/15/18 Unknown History Active Medications: Generic Name Dose Route Start Last Admin Trade Name Freq PRN Reason Stop Dose Admin Acetaminophen 650 mg 08/15/18 22:12 08/24/18 21:30 Tylenol PO 650 mg Q4H PRN Administration Pain MILD(1-3)/Fever >100.5/MONDRAGON Acetaminophen 650 mg 08/16/18 17:01 08/16/18 17:11 Tylenol [place] 650 mg Q4H PRN Administration Pain, Mild (1-3) Albuterol 2.5 mg 08/17/18 17:00 Proventil IH Q3HRT PRN Shortness Of Breath Albuterol/Ipratropium 1 ampul 08/20/18 14:00 08/25/18 14:52 Duoneb *Not For Prn Use* IH 1 ampul Q6HRT LAMAR Administration Lipase/Protease/Amylase 1 each 08/17/18 15:55 Alis Elizabeth 10,500 Unit FEEDTUBE PRN PRN For Clogged Feeding Tube Arformoterol Tartrate 15 mcg 08/18/18 20:00 08/25/18 14:53 Brovana Nebu IH 15 mcg Q12HRT LAMAR Administration Budesonide 0.5 mg 08/18/18 20:00 08/25/18 08:04 Pulmicort IH 0.5 mg Q12HRT LAMAR Administration Carvedilol 6.25 mg 08/15/18 22:45 08/25/18 10:45 Coreg PO 6.25 mg BID LAMAR Administration Diphenhydramine HCl 25 mg 08/22/18 11:30 08/25/18 12:35 Benadryl IV 25 mg Q24H LAMAR Administration Duloxetine HCl 60 mg 08/16/18 10:00 08/24/18 10:16 Cymbalta PO Not Given QDAY LAMAR Famotidine 20 mg 08/21/18 10:00 08/25/18 10:45 Pepcid PO 20 mg DAILY LAMAR Administration Fentanyl 50 mcg 08/15/18 21:55 08/17/18 13:36 Sublimaze IV 50 mcg Q10MIN PRN Administration ANALGESIA Hydralazine HCl 10 mg 08/19/18 13:59 08/19/18 15:06 Apresoline IV 10 mg Q3H PRN Administration Hydralazine HCl 25 mg 08/24/18 14:00 08/24/18 21:31 Apresoline PO 25 mg Q8HR LAMAR Administration Hydrophilic Ointment 1 applic 08/15/18 21:55 Vaseline Lip Therapy TP Q2HR PRN Dry Lips Fentanyl Citrate 2,000 mcg in 100 mls @ 4.082 mls/hr 08/15/18 22:00 08/25/18 10:46 Fentanyl Drip Premix IV 2 mcg/kg/hr TITR LAMAR 8.165 mls/hr Administration Protocol 1 MCG/KG/HR Propofol 1,000 mg in 100 mls @ 2.449 mls/hr 08/15/18 21:15 08/25/18 15:34 Diprivan 10 Mg/Ml IV 5 mcg/kg/min TITR LAMAR 2.449 mls/hr Administration Protocol 5 MCG/KG/MIN Norepinephrine 4 mg in 250 mls @ 7.5 mls/hr 08/17/18 20:00 08/25/18 08:15 Levophed Drip 4 Mg/Ns 250 Ml IV 0 mcg/min TITR LAMAR 0 mls/hr Titration Protocol 2 MCG/MIN Cefazolin Sodium 2 gm/ Sodium 100 mls @ 100 mls/hr 08/22/18 12:00 08/25/18 10:40 Chloride IV 100 mls/hr Q12HR LAMAR Administration Sodium Chloride 1,000 mls @ 50 mls/hr 08/22/18 12:00 08/25/18 10:52 Nacl 0.9% 1000 Ml IV 50 mls/hr DIRECT LAMAR Administration Amphotericin B 300 mg/ 560 mls @ 250 mls/hr 08/27/18 12:00 Dextrose IV Q48H LAMAR Metoclopramide HCl 5 mg 08/15/18 22:50 Reglan IV Q6H PRN Nausea And Vomiting Ondansetron HCl 4 mg 08/15/18 22:12 Zofran IV Q8H PRN Nausea And Vomiting Quetiapine Fumarate 200 mg 08/22/18 12:00 08/25/18 10:45 Seroquel PO 200 mg BID LAMAR Administration Simple Syrup 15 ml 08/17/18 15:55 Simple Syrup FEEDTUBE PRN PRN Hypoglycemia Simple Syrup 30 ml 08/17/18 15:55 Simple Syrup FEEDTUBE PRN PRN Hypoglycemia Sodium Bicarbonate 325 mg 08/17/18 15:55 Sodium Bicarbonate FEEDTUBE PRN PRN For Clogged Feeding Tube Sodium Chloride 10 ml 08/16/18 10:00 08/24/18 10:15 Sodium Chloride Flush Syringe 10 Ml IV Not Given BID LAMAR Sodium Chloride 10 ml 08/15/18 22:12 08/18/18 21:52 Sodium Chloride Flush Syringe 10 Ml IV 10 ml PRN PRN Administration LINE FLUSH
[2018-08-25 17:03] LABS: Heparin-Induced Platelet Antib Negative (Negative); Unfractionated Heparin Negative (Negative)
[2018-08-25] MEDS: SODIUM CHLORIDE FLUSH SYRINGE 10 ML IV SCH ×2 (17:28→22:00)
[2018-08-25] MEDS: CYMBALTA PO SCH (17:29)
[2018-08-25] MEDS: SODIUM CHLORIDE FLUSH SYRINGE 10 ML IV PRN ×2 (21:32→21:35)
[2018-08-26] MEDS: ceFAZolin 2 GM in NACL 0.9% 100 ML IV SCH ×3 (00:31→22:08)
[2018-08-26] MEDS: SODIUM CHLORIDE FLUSH SYRINGE 10 ML IV SCH ×4 (01:43→22:15)
[2018-08-26] MEDS: DUONEB *Not for PRN Use IH SCH ×3 (03:03→16:00)
[2018-08-26] MEDS: APRESOLINE PO SCH (05:40)
[2018-08-26] MEDS: DIPRIVAN 10 MG/ML 1,000 MG/100 ML BOTTLE IV SCH (05:56)
[2018-08-26 06:12] LABS: Basophils % (Auto) 0.2 % (0.0-1.8); Hemoglobin 7.7 gm/dl (10.1-14.3); Lymphocytes # (Auto) 0.7 K/mm3 (1.2-5.4); Lymphocytes % (Auto) 6.3 % (13.4-35.0); Mean Corpuscular HGB Conc 33 % (30-34); Mean Corpuscular Volume 88 fl (79-97); Monocytes # (Auto) 0.6 K/mm3 (0.0-0.8); Monocytes % (Auto) 5.4 % (0.0-7.3); Platelet Count 197 K/mm3 (140-440); Red Blood Count 2.62 M/mm3 (3.65-5.03)
--- NOTE | 2018-08-26 08:42 | Progress Note ---
Assessment and Plan Assessment and plan: --Anemia; hemoglobin today 6.7-7.7 received 1 unit PRBC , closely monitor,transfuse as needed --Acute hypoxic hypercapnic respiratory failure; intubated on ventilatory support nebulizers, IV antibiotics, supportive care wean as tolerated and extubate, pulmonary following --Persistent fever; 24-hour MAXIMUM TEMPERATURE 99.9 Continue current antibiotics ID following, follow cultures --Sepsis; secondary to aspiration pneumonia, continue current antibiotics Follow cultures, ID following --Aspiration pneumonia; Continue antibiotics and antifungal per ID Follow-up chest x-ray; no improvement of pneumonia --Hypertension; continue current antihypertensives Added hydralazine 25mg 8 hours a day,PRN meds --Hypernatremia; free water flushes, improved Closely monitor electrolytes, trending down --Hypokalemia; replace with KCl, follow electrolytes --Severe malnutrition/hypoalbuminemia; Nutrition consults and supportive care --Acute kidney injury; probably secondary to ATN avoid nephrotoxins, Nephrology following ----Acute systolic congestive heart failure; Ejection fraction 25-30%, continue current management Cardiology following --Elevated Transaminases; possible congested liver Levels trending down, check acute hepatitis panel Consider GI evaluation if needed --DVT prophylaxis; Lovenox Consults and recommendations noted and appreciated Plan of care reviewed with the patient's and her nurse The high probability of a clinically significant, sudden or life threatening deterioration of the [respiratory, cardiology, ID, renal and metabolic] system(s) required my full and direct attention, intervention and personal management. The aggregate critical care time was [32] minutes. This time is in addition to time spent performing reported procedures but includes the following: [x] Data Review and interpretation [x] Patient assessment and monitoring of vital signs [x] Documentation [x] Medication orders and management History Interval history: Patient Seen and examined and reviewed Remained intubated on ventilatory support, on weaning parameters Alert and awake , responds appropriately Hospitalist Physical - Constitutional Vitals: Temp Pulse Resp BP Pulse Ox 99.9 F H 85 16 125/54 95 08/26/18 08:00 08/26/18 06:15 08/26/18 06:15 08/26/18 06:15 08/26/18 06:15 General appearance: Present: no acute distress, well-nourished, other (intubated on ventilatory support, sedated) - EENT Eyes: Present: PERRL, EOM intact - Neck Neck: Present: supple, normal ROM (incision remains in place because she is she is admittedHave contacted) - Respiratory Respiratory effort: normal Respiratory: bilateral: diminished, rhonchi, negative: rales, wheezing (, U) - Cardiovascular Rhythm: regular Heart Sounds: Present: S1 & S2 - Extremities Extremities: no ischemia, No edema - Abdominal General gastrointestinal: soft, non-tender, non-distended, normal bowel sounds - Integumentary Integumentary: Present: clear - Psychiatric Psychiatric: appropriate mood/affect, cooperative - Neurologic Neurologic: moves all extremities Results - Labs CBC & Chem 7: 08/26/18 06:00 08/26/18 06:00 Labs: Laboratory Last Values WBC 10.9 K/mm3 (4.5-11.0) 08/26/18 06:00 RBC 2.62 M/mm3 (3.65-5.03) L 08/26/18 06:00 Hgb 7.7 gm/dl (10.1-14.3) L 08/26/18 06:00 Hct 23.0 % (30.3-42.9) L 08/26/18 06:00 MCV 88 fl (79-97) 08/26/18 06:00 MCH 29 pg (28-32) 08/26/18 06:00 MCHC 33 % (30-34) 08/26/18 06:00 RDW 22.0 % (13.2-15.2) H 08/26/18 06:00 Plt Count 197 K/mm3 (140-440) 08/26/18 06:00 Lymph % (Auto) 6.3 % (13.4-35.0) L 08/26/18 06:00 Runnels % (Auto) 5.4 % (0.0-7.3) 08/26/18 06:00 Eos % (Auto) 0.0 % (0.0-4.3) 08/26/18 06:00 Baso % (Auto) 0.2 % (0.0-1.8) 08/26/18 06:00 Lymph # 0.7 K/mm3 (1.2-5.4) L 08/26/18 06:00 Runnels # 0.6 K/mm3 (0.0-0.8) 08/26/18 06:00 Eos # 0.0 K/mm3 (0.0-0.4) 08/26/18 06:00 Baso # 0.0 K/mm3 (0.0-0.1) 08/26/18 06:00 Add Manual Diff Complete 08/24/18 08:30 Total Counted 100 08/24/18 08:30 Seg Neutrophils % 88.1 % (40.0-70.0) H 08/26/18 06:00 Seg Neuts % (Manual) 93.0 % (40.0-70.0) H 08/24/18 08:30 Band Neutrophils % 0 % 08/24/18 08:30 Lymphocytes % (Manual) 6.0 % (13.4-35.0) L 08/24/18 08:30 Reactive Lymphs % (Man) 0 % 08/24/18 08:30 Monocytes % (Manual) 1.0 % (0.0-7.3) 08/24/18 08:30 Eosinophils % (Manual) 0 % (0.0-4.3) 08/24/18 08:30 Basophils % (Manual) 0 % (0.0-1.8) 08/24/18 08:30 Metamyelocytes % 0 % 08/24/18 08:30 Myelocytes % 0 % 08/24/18 08:30 Promyelocytes % 0 % 08/24/18 08:30 Blast Cells % 0 % 08/24/18 08:30 Nucleated RBC % Not Reportable 08/24/18 08:30 Seg Neutrophils # 9.6 K/mm3 (1.8-7.7) H 08/26/18 06:00 Seg Neutrophils # Man 11.9 K/mm3 (1.8-7.7) H 08/24/18 08:30 Band Neutrophils # 0.0 K/mm3 08/24/18 08:30 Abs Lymphs (Manual) 3262 cells/uL (850-3900) 08/19/18 14:32 Lymphocytes # (Manual) 0.8 K/mm3 (1.2-5.4) L 08/24/18 08:30 Abs React Lymphs (Man) 0.0 K/mm3 08/24/18 08:30 Monocytes # (Manual) 0.1 K/mm3 (0.0-0.8) 08/24/18 08:30 Eosinophils # (Manual) 0.0 K/mm3 (0.0-0.4) 08/24/18 08:30 Basophils # (Manual) 0.0 K/mm3 (0.0-0.1) 08/24/18 08:30 Metamyelocytes # 0.0 K/mm3 08/24/18 08:30 Myelocytes # 0.0 K/mm3 08/24/18 08:30 Promyelocytes # 0.0 K/mm3 08/24/18 08:30 Blast Cells # 0.0 K/mm3 08/24/18 08:30 WBC Morphology Not Reportable 08/24/18 08:30 Hypersegmented Neuts Not Reportable 08/24/18 08:30 Hyposegmented Neuts Not Reportable 08/24/18 08:30 Hypogranular Neuts Not Reportable 08/24/18 08:30 Smudge Cells Not Reportable 08/24/18 08:30 Toxic Granulation Not Reportable 08/24/18 08:30 Toxic Vacuolation Not Reportable 08/24/18 08:30 Dohle Bodies Not Reportable 08/24/18 08:30 Pelger-Huet Anomaly Not Reportable 08/24/18 08:30 Rosy Rods Not Reportable 08/24/18 08:30 Platelet Estimate Consistent w auto 08/24/18 08:30 Clumped Platelets Not Reportable 08/24/18 08:30 Plt Clumps, EDTA Not Reportable 08/24/18 08:30 Large Platelets Not Reportable 08/24/18 08:30 Giant Platelets Not Reportable 08/24/18 08:30 Platelet Satelliting Not Reportable 08/24/18 08:30 Plt Morphology Comment Not Reportable 08/24/18 08:30 RBC Morphology Not Reportable 08/24/18 08:30 Dimorphic RBCs Not Reportable 08/24/18 08:30 Polychromasia Not Reportable 08/24/18 08:30 Hypochromasia Not Reportable 08/24/18 08:30 Poikilocytosis Not Reportable 08/24/18 08:30 Anisocytosis 1+ 08/24/18 08:30 Microcytosis Not Reportable 08/24/18 08:30 Macrocytosis Not Reportable 08/24/18 08:30 Spherocytes Not Reportable 08/24/18 08:30 Pappenheimer Bodies Not Reportable 08/24/18 08:30 Sickle Cells Not Reportable 08/24/18 08:30 Target Cells Not Reportable 08/24/18 08:30 Tear Drop Cells Not Reportable 08/24/18 08:30 Ovalocytes Not Reportable 08/24/18 08:30 Helmet Cells Not Reportable 08/24/18 08:30 Hernandez-Flournoy Bodies Not Reportable 08/24/18 08:30 [place] Rings Not Reportable 08/24/18 08:30 [place] Cells Not Reportable 08/24/18 08:30 Bite Cells Not Reportable 08/24/18 08:30 Crenated Cell Not Reportable 08/24/18 08:30 Elliptocytes Not Reportable 08/24/18 08:30 Acanthocytes (Spur) Not Reportable 08/24/18 08:30 Rouleaux Not Reportable 08/24/18 08:30 Hemoglobin C Crystals Not Reportable 08/24/18 08:30 Schistocytes Not Reportable 08/24/18 08:30 Malaria parasites Not Reportable 08/24/18 08:30 Ceasar Bodies Not Reportable 08/24/18 08:30 Hem Pathologist Commnt No 08/24/18 08:30 D-Dimer 2768.33 ng/mlDDU (0-234) H 08/15/18 18:31 Heparin Anti-Xa, Unfract Negative (Negative) 08/22/18 15:29 POC ABG pH 7.403 (7.35-7.45) 08/26/18 04:53 POC ABG pCO2 30.9 (35-45) L 08/26/18 04:53 POC ABG pO2 70 (80-105) L 08/26/18 04:53 POC ABG HCO3 19.2 (22-26 mml/L) 08/26/18 04:53 POC ABG Total CO2 20 (23-27mmol/L) 08/26/18 04:53 POC ABG O2 Sat 94 08/26/18 04:53 POC ABG Base Excess -6 ((-2) - (+3)mmol/L) 08/26/18 04:53 VBG pH 7.187 (7.320-7.420) L* 08/15/18 18:19 FiO2 35 % 08/26/18 04:53 Sodium 139 mmol/L (137-145) 08/26/18 06:00 Potassium 3.7 mmol/L (3.6-5.0) 08/26/18 06:00 Chloride 104.8 mmol/L (98-107) 08/26/18 06:00 Carbon Dioxide 21 mmol/L (22-30) L 08/26/18 06:00 Anion Gap 17 mmol/L 08/26/18 06:00 BUN 70 mg/dL (7-17) H 08/26/18 06:00 Creatinine 3.3 mg/dL (0.7-1.2) H 08/26/18 06:00 Estimated GFR 14 ml/min 08/26/18 06:00 BUN/Creatinine Ratio 21 % 08/26/18 06:00 Glucose 146 mg/dL (65-100) H 08/26/18 06:00 POC Glucose 149 (70-105) H 08/26/18 05:42 Hemoglobin A1c 6.4 % (4-6) H 08/15/18 23:09 Lactic Acid 1.20 mmol/L (0.7-2.0) 08/22/18 15:29 Calcium 8.0 mg/dL (8.4-10.2) L 08/26/18 06:00 Phosphorus 4.30 mg/dL (2.5-4.5) 08/23/18 Unknown Magnesium 2.20 mg/dL (1.7-2.3) 08/23/18 Unknown Total Bilirubin 0.20 mg/dL (0.1-1.2) 08/24/18 08:30 AST 30 units/L (5-40) 08/24/18 08:30 ALT 11 units/L (7-56) 08/24/18 08:30 Alkaline Phosphatase 63 units/L (35-129) 08/24/18 08:30 Troponin T 0.317 ng/mL (0.00-0.029) H* D 08/18/18 13:39 C-Reactive Protein 5.00 mg/dL (0.00-1.30) H 08/25/18 05:20 Total Protein 5.3 g/dL (6.3-8.2) L 08/24/18 08:30 Albumin 2.2 g/dL (3.9-5) L 08/24/18 08:30 Albumin/Globulin Ratio 0.7 % 08/24/18 08:30 Triglycerides 197 mg/dL (2-149) H 08/22/18 06:45 Cholesterol 87 mg/dL (50-199) 08/15/18 18:31 LDL Cholesterol Direct 4 mg/dL (50-130) L 08/15/18 18:31 HDL Cholesterol 10 mg/dL (40-59) L 08/15/18 18:31 Cholesterol/HDL Ratio 8.70 % 08/15/18 18:31 Urine Color Rosemarie (Yellow) 08/15/18 19:15 Urine Turbidity Cloudy (Clear) 08/15/18 19:15 Urine pH 5.0 (5.0-7.0) 08/15/18 19:15 Ur Specific [place] 1.025 (1.003-1.030) 08/15/18 19:15 Urine Protein 30 mg/dl mg/dL (Negative) 08/15/18 19:15 Urine Glucose (UA) Neg mg/dL (Negative) 08/15/18 19:15 Urine Ketones Neg mg/dL (Negative) 08/15/18 19:15 Urine Blood Mod (Negative) 08/15/18 19:15 Urine Nitrite Neg (Negative) 08/15/18 19:15 Urine Bilirubin Neg (Negative) 08/15/18 19:15 Urine Urobilinogen 2.0 mg/dL (<2.0) 08/15/18 19:15 Ur Leukocyte Esterase Mod (Negative) 08/15/18 19:15 Urine WBC (Auto) 17.0 /HPF (0.0-6.0) H 08/15/18 19:15 Urine RBC (Auto) 5.0 /HPF (0.0-6.0) 08/15/18 19:15 Urine WBC Clumps 2+ /HPF 08/15/18 19:15 Amorphous Crystals 1+ 08/15/18 19:15 Hyaline Casts 54 /LPF 08/15/18 19:15 Granular Casts 14 /LPF 08/15/18 19:15 Urine Mucus Few /HPF 08/15/18 19:15 Salicylates < 0.3 mg/dL (2.8-20.0) L 08/15/18 19:14 Urine Opiates Screen Presumptive positive 08/15/18 19:15 Urine Methadone Screen Presumptive negative 08/15/18 19:15 Acetaminophen < 5.0 ug/mL (10.0-30.0) L 08/15/18 19:14 Ur Barbiturates Screen Presumptive negative 08/15/18 19:15 Ur Phencyclidine Scrn Presumptive negative 08/15/18 19:15 Ur Amphetamines Screen Presumptive negative 08/15/18 19:15 U Benzodiazepines Scrn Presumptive negative 08/15/18 19:15 Urine Cocaine Screen Presumptive negative 08/15/18 19:15 U Marijuana (THC) Screen Presumptive negative 08/15/18 19:15 Drugs of Abuse Note Disclamer 08/15/18 19:15 Heparin-induced Plt Ab Negative (Negative) 08/22/18 15:29 UF Heparin High Dose 0 % Release 08/22/18 15:29 NAZIA UFH Low Dose 0.1 0 % Release 08/22/18 15:29 NAZIA UFH Low Dose 0.5 0 % Release 08/22/18 15:29 Lymph Enumerat CD4/CD8 1.98 (0.86-5.00) 08/19/18 14:32 % CD3 Cells 44 % (57-85) L 08/19/18 14:32 Absolute CD3 Count 1451 cells/uL (840-3060) 08/19/18 14:32 % CD4 Cells 30 % (30-61) 08/19/18 14:32 Absolute CD4 Count 1004 cells/uL (490-1740) 08/19/18 14:32 % CD8 Cells 15 % (12-42) 08/19/18 14:32 Absolute CD8 Count 508 cells/uL (180-1170) 08/19/18 14:32 % CD19 Cells 41 % (6-29) H 08/19/18 14:32 Absolute CD19 Count 1290 cells/uL (110-660) H 08/19/18 14:32 C. difficile Toxin A&B Negative (Negative) 08/19/18 14:00 HIV 1&2 Antibody Rapid Non react (Non React) 08/18/18 13:39 HIV P24 Antigen Non react (Non React) 08/18/18 13:39 Blood Type O POSITIVE 08/25/18 08:52 Antibody Screen Negative 08/25/18 08:52 Crossmatch See Detail 08/25/18 08:52 Active Medications - Current Medications Current Medications: Generic Name Dose Route Start Last Admin Trade Name Freq PRN Reason Stop Dose Admin Acetaminophen 650 mg 08/15/18 22:12 08/24/18 21:30 Tylenol PO 650 mg Q4H PRN Administration Pain MILD(1-3)/Fever >100.5/MONDRAGON Acetaminophen 650 mg 08/16/18 17:01 08/16/18 17:11 Tylenol FL 650 mg Q4H PRN Administration Pain, Mild (1-3) Albuterol 2.5 mg 08/17/18 17:00 Proventil IH Q3HRT PRN Shortness Of Breath Albuterol/Ipratropium 1 ampul 08/20/18 14:00 08/26/18 03:03 Duoneb *Not For Prn Use* IH 1 ampul Q6HRT LAMAR Administration Lipase/Protease/Amylase 1 each 08/17/18 15:55 Pancresam Elizabeth 10,500 Unit FEEDTUBE PRN PRN For Clogged Feeding Tube Arformoterol Tartrate 15 mcg 08/18/18 20:00 08/25/18 19:17 Brovana Nebu IH 15 mcg Q12HRT LAMAR Administration Budesonide 0.5 mg 08/18/18 20:00 08/25/18 19:17 Pulmicort IH 0.5 mg Q12HRT LAMAR Administration Carvedilol 6.25 mg 08/15/18 22:45 08/25/18 21:30 Coreg PO 6.25 mg BID LAMAR Administration Diphenhydramine HCl 25 mg 08/22/18 11:30 08/25/18 12:35 Benadryl IV 25 mg Q24H LAMAR Administration Duloxetine HCl 60 mg 08/16/18 10:00 08/25/18 17:29 Cymbalta PO Not Given QDAY LAMAR Famotidine 20 mg 08/21/18 10:00 08/25/18 10:45 Pepcid PO 20 mg DAILY LAMAR Administration Fentanyl 50 mcg 08/15/18 21:55 08/17/18 13:36 Sublimaze IV 50 mcg Q10MIN PRN Administration ANALGESIA Hydralazine HCl 10 mg 08/19/18 13:59 08/19/18 15:06 Apresoline IV 10 mg Q3H PRN Administration Hydralazine HCl 25 mg 08/24/18 14:00 08/26/18 05:40 Apresoline PO 25 mg Q8HR LAMAR Administration Hydrophilic Ointment 1 applic 08/15/18 21:55 Vaseline Lip Therapy TP Q2HR PRN Dry Lips Fentanyl Citrate 2,000 mcg in 100 mls @ 4.082 mls/hr 08/15/18 22:00 08/25/18 23:04 Fentanyl Drip Premix IV 2 mcg/kg/hr TITR LAMAR 8.165 mls/hr Administration Protocol 1 MCG/KG/HR Propofol 1,000 mg in 100 mls @ 2.449 mls/hr 08/15/18 21:15 08/26/18 05:56 Diprivan 10 Mg/Ml IV 10 mcg/kg/min TITR LAMAR 4.899 mls/hr Administration Protocol 5 MCG/KG/MIN Norepinephrine 4 mg in 250 mls @ 7.5 mls/hr 08/17/18 20:00 08/26/18 05:42 Levophed Drip 4 Mg/Ns 250 Ml IV 0 mcg/min TITR LAMAR 0 mls/hr Titration Protocol 2 MCG/MIN Cefazolin Sodium 2 gm/ Sodium 100 mls @ 100 mls/hr 08/22/18 12:00 08/26/18 00:31 Chloride IV 100 mls/hr Q12HR LAMAR Administration Sodium Chloride 1,000 mls @ 50 mls/hr 08/22/18 12:00 08/25/18 10:52 Nacl 0.9% 1000 Ml IV 50 mls/hr DIRECT LAMAR Administration Amphotericin B 300 mg/ 560 mls @ 250 mls/hr 08/27/18 12:00 Dextrose IV Q48H LAMAR Metoclopramide HCl 5 mg 08/15/18 22:50 Reglan IV Q6H PRN Nausea And Vomiting Ondansetron HCl 4 mg 08/15/18 22:12 Zofran IV Q8H PRN Nausea And Vomiting Quetiapine Fumarate 200 mg 08/22/18 12:00 08/25/18 21:28 Seroquel PO 200 mg BID LAMAR Administration Simple Syrup 15 ml 08/17/18 15:55 Simple Syrup FEEDTUBE PRN PRN Hypoglycemia Simple Syrup 30 ml 08/17/18 15:55 Simple Syrup FEEDTUBE PRN PRN Hypoglycemia Sodium Bicarbonate 325 mg 08/17/18 15:55 Sodium Bicarbonate FEEDTUBE PRN PRN For Clogged Feeding Tube Sodium Chloride 10 ml 08/16/18 10:00 08/26/18 01:43 Sodium Chloride Flush Syringe 10 Ml IV 10 ml BID LAMAR Administration Sodium Chloride 10 ml 08/15/18 22:12 08/25/18 21:35 Sodium Chloride Flush Syringe 10 Ml IV 10 ml PRN PRN Administration LINE FLUSH Nutrition/Malnutrition Assess - Dietary Evaluation Nutrition/Malnutrition Findings: Nutrition Notes Start: 08/17/18 13:57 Freq: Status: Active Protocol: Document 08/24/18 10:51 CP (Rec: 08/24/18 10:59 CP [id number]) Co-Sign 08/24/18 10:51 LP Nutrition Notes Initial or Follow up Reassessment Current Diagnosis Acute Kidney Injury,COPD, Diabetes,Sepsis,Hypertension, Respiratory Failure, Hyperlipidemia Other Pertinent Diagnosis AMS, hypokalemia, NSTEMI, encephalopathy, pneu, hypernatermia, shock liver Current Diet Vital AF 1.2 at 60mL/hr Labs/Tests BUN 64 Cr 2 BG 149 Pertinent Medications Reviewed Height 5 ft 7 in Weight 95.3 kg [place] Body Weight (kg) 61.36 BMI 32.9 Subjective/Other Information Per nurse, TF is stable and Na is WNL. #1 Nutrition Diagnosis Inadequate oral intake Diagnosis Progress(for reassessment Continues documentation) Is patient on ventilator? Yes Is Patient Ambulatory and/or Out of Bed No REE-([facility]-confined to bed) 1824.132 Kcal/Kg value to use for calculation 16 Approximate Energy Requirements Using 1525 kcal/Kg Calculation Used for Recommendations [facility] Additional Notes Protein needs: (2g/kg IBW) 122g/day Fluid needs: 1ml/kcal Nutrition Intervention Change Diet Order: Continue current Nutrition Support: Vital AF 1.2 at 60mL/hr with 150mL flush q4h. Kcal 1,728 Protein (gm) 108 Fluid (mL) 1,168 Goal #1 Tolerate TF Goal #2 Continue to meet at least 75% of nutrient needs via TF Anticipated Discharge Needs: Unable to determine at this time Follow-Up By: 08/31/18 Additional Comments F/U: TF tolerance
[2018-08-26] MEDS: PEPCID PO SCH (09:20)
[2018-08-26] MEDS: CYMBALTA PO SCH (09:20)
[2018-08-26] MEDS: COREG PO SCH ×2 (09:25→22:09)
[2018-08-26] MEDS: PULMICORT IH SCH (09:53)
[2018-08-26] MEDS: BROVANA NEBU IH SCH (09:53)
--- NOTE | 2018-08-26 10:12 | Progress Note ---
Assessment and Plan Cultures: 08/15/2018 blood culture: Camryn glabrata 1 of 4 08/15/2018 sputum culture: MSSA and Escherichia coli, wade susceptible 08/18/2018 blood culture: no growth 08/18/2018 urine culture: neg 08/22/2018 blood culture: no growth 08/25/2018 blood culture: no growth today A/P: 68-year-old female with COPD, arthritis, history of multiple spinal surgeries was brought to the emergency room on 08/15/2018 with altered mental status: 1) Sepsis with now ?septic shock: fever resolved, briefly on levophed on 08/25. Etio is unclear. Likely fungemia, which did not respond to 2 day-course of initial fluconazole and then 3 day-course micafungin. 08/22/2018 blood culture: no growth 2) Camryn glabrata fungemia: Blood cultures done on admission growing yeast in one set. Etiology is unclear. Patient without any history of indwelling PICC line, TPN or immunocompromised status. reporting severe explosive diarrhea, N/V before admission after taken 4 days of amoxicillin for dental implant on 07/29/2018 and had a EGD / colonoscopy on 08/08/[address] [place] [address] Alcantara. I reviewed report - mild chronic gastritis, focal intestinal metaplasia, squamocolumnar mucosa with mild reflux-type changes, and tubular adenoma. -s/p fluconazole 800 mg loading dose then micafungin, now on amphotericin D5 -serum Crypto negative. -08/15/2018 blood culture: Camryn glabrata -08/18/2018 blood culture: no growth today -CTA chest showed limited study due to respiratory motion artifact. No evidence of pulmonary embolism. Abnormal bilateral lung consolidation which may represent pulmonary edema or pneumonia. Mild cardiomegaly. Indeterminant mediastinal lymph nodes. -CT abdomen showed extensive bilateral lower lobe pulmonary infiltrates, rectal tube and Dodge catheter noted. NG tube at gastric antrum. Left hip prosthesis Extensive degenerative changes noted lumbar spine -TTE EF 25-30% no vegetations -HIV neg/ CD4 1004 -reviewed CT chest abd done 01/05/2019 showed cholecystectomy, mild fatty liver, postoperative changes of lumbar laminectomy with non specific fluid, 9 mm LLL pulmonary nodule which was compared to previous CT and was stable. -CRP 10-->5 3) Acute renal failure: On admission: Creatinine worsening. Nephrology following. 4) Transaminitis: Likely from shock liver. Better. 5) Bilateral pneumonia: DDx aspiration pneumonia v/s CAP. Causing acute respiratory failure. Chest x-ray shows reticular nodular infiltrates, some of these appear to be chronic and would also present in 2011. CTA chest showed limited study due to respiratory motion artifact. No evidence of pulmonary embolism. Abnormal bilateral lung consolidation which may represent pulmonary edema or pneumonia. Mild cardiomegaly. Indeterminant mediastinal lymph nodes. -Sputum culture 08/15 MSSA and Escherichia coli, wade susceptible 6) Right maxillary sinusitis 7) Acute encephalopathy: Likely multifactorial. CT head unremarkable for acute intracranial process. currently alert follows commands 8) Recent diarrhea after antibiotics. C diff negative. Reviewed CT abdomen with Dr Stoddard and no evidence of diverticulitis, colitis or abscess 9) New onset cardiomyopathy, LVEF 25-30% this admission 10) H/O left hip prosthesis ? XR no effusion. CT no enhancement Recs: stop amphotericin start micafungin I asked micro to send Camryn glabrata isolate to [facility] lab for confirmation as it coulf represent a misled diagnosis of other resistant Camryn as Camryn auris which is very resistant to many antifungal. f/u repeat blood culture, cortisol level and procal collected yesterday while she weas temporary on pressors. Remove rigth IJ f/u aspergillus antigen and 1,2 beta D glucan via - ordered Continue cefazolin IV renally adjusted to cover MSSA and Escherichia coli D5 og 7 monitor creatinine closely Will cover the weekend Yasmin Alvarez MD Infectious Diseases [employer] [facility], [place], [facility] [phone] Subjective Date of service: 08/26/18 Principal diagnosis: Acute hypoxemic hypercapnic Resp failure; AE-COPD; Acute kidney injury Interval history: Remains intubated fiO2 35%, p 8, alert, following commands, off pressors today, tmax 99.9 ROS: unable to obtain Objective - Exam Narrative Exam: Constitutional: alert open eyes, intubated fiO2 35%, p8 Head, Ears, Nose: Normocephalic, atraumatic. External ears, nose normal Eyes: Conjunctivae/corneas clear. No icterus. No ptosis. Neck: Supple, no meningeal signs Oral: +ETT Cardiovascular: irreg Respiratory: gonzalez rhonchi GI: Soft, non-tender; bowel sounds normal. No peritoneal signs Musculoskeletal: gonzalez arm edema Skin: No rash or abscess Hem/Lymphatic: No palpable cervical or supraclavicular nodes. No lymphangitis Psych: no agitation Neurological: alert follows commands Rectal tube with diarrhea - Constitutional Vitals: Vital Signs Temp Pulse Resp BP Pulse Ox 99.9 F H 111 H 43 H 107/55 93 08/26/18 08:00 08/26/18 09:53 08/26/18 09:53 08/26/18 09:49 08/26/18 09:49 Temperature -Last 24 Hours Temperature 99.9 F Temperature 98.4 F Temperature 98.6 F Temperature 98.4 F Temperature 99.8 F Temperature 98.9 F Temperature 99 F Temperature 98.9 F Temperature 98.8 F Temperature 99 F Temperature 98.8 F Temperature 99.5 F Temperature 99 F - Labs CBC & Chem 7: 08/26/18 06:00 08/26/18 06:00 Labs: Abnormal lab results 08/25/18 08/25/18 08/25/18 Range/Units 08:52 12:42 18:05 RBC (3.65-5.03) M/mm3 Hgb (10.1-14.3) gm/dl Hct (30.3-42.9) % RDW (13.2-15.2) % Lymph % (Auto) (13.4-35.0) % Lymph # (1.2-5.4) K/mm3 Seg Neutrophils % (40.0-70.0) % Seg Neutrophils # (1.8-7.7) K/mm3 POC ABG pCO2 (35-45) POC ABG pO2 (80-105) Carbon Dioxide (22-30) mmol/L BUN (7-17) mg/dL Creatinine (0.7-1.2) mg/dL Glucose (65-100) mg/dL POC Glucose 166 H 121 H (70-105) Calcium (8.4-10.2) mg/dL Crossmatch See Detail 08/26/18 08/26/18 08/26/18 Range/Units 00:13 04:53 05:42 RBC (3.65-5.03) M/mm3 Hgb (10.1-14.3) gm/dl Hct (30.3-42.9) % RDW (13.2-15.2) % Lymph % (Auto) (13.4-35.0) % Lymph # (1.2-5.4) K/mm3 Seg Neutrophils % (40.0-70.0) % Seg Neutrophils # (1.8-7.7) K/mm3 POC ABG pCO2 30.9 L (35-45) POC ABG pO2 70 L (80-105) Carbon Dioxide (22-30) mmol/L BUN (7-17) mg/dL Creatinine (0.7-1.2) mg/dL Glucose (65-100) mg/dL POC Glucose 164 H 149 H (70-105) Calcium (8.4-10.2) mg/dL Crossmatch 08/26/18 08/26/18 Range/Units 06:00 06:00 RBC 2.62 L (3.65-5.03) M/mm3 Hgb 7.7 L (10.1-14.3) gm/dl Hct 23.0 L (30.3-42.9) % RDW 22.0 H (13.2-15.2) % Lymph % (Auto) 6.3 L (13.4-35.0) % Lymph # 0.7 L (1.2-5.4) K/mm3 Seg Neutrophils % 88.1 H (40.0-70.0) % Seg Neutrophils # 9.6 H (1.8-7.7) K/mm3 POC ABG pCO2 (35-45) POC ABG pO2 (80-105) Carbon Dioxide 21 L (22-30) mmol/L BUN 70 H (7-17) mg/dL Creatinine 3.3 H (0.7-1.2) mg/dL Glucose 146 H (65-100) mg/dL POC Glucose (70-105) Calcium 8.0 L (8.4-10.2) mg/dL Crossmatch
--- NOTE | 2018-08-26 10:23 | Progress Note ---
Assessment and Plan Severe sepsis with septic shock Intermittent fevers and hypotension -Fungemia on Amphotericin Acute hypoxic-hypercapnic respiratory failure on MVS h/o COPD Acute kidney injury, rising creatinine levels Acute encephalopathy( toxic-metabolic)- much improved Aspiration pneumonia/CAP New onset cardiomyopathy, LVEF 25-30% this admission Previous echo 03/30/2016 at [facility] revealed normal LVEF Previous stress MPI 03/29/2016 at [facility] revealed no ischemia Abnormal ECG showing LBBB, chronic Anemia s/p PRBC with appropriate response -Recent EGD at [facility] 08/08/2018 revealing irregular Z line, gastritis and small hiatal hernia Recent colonoscopy at [facility] 08/08/2018 revealing sigmoid polyp, transverse colon polyps, inflamed hemorrhoids and diverticulosis E.coli/Staph pneumonia Thrombocytopenia resolved -Continue full MVS -Wean supplemental oxygen to keep O2 sats 88-90% -Lung protective strategies -Oxygen restrictive strategies -ABGs/CXR -CXR indicative of pulmonary edema -Antibiotics/antifungal to complete course -VAP bundle addressed - agitation and analgesia management -Monitor renal indices -Cardioprotective measures - In view of cardiomyopathy,patient needs to be negative balance, as the discontinuation of positive pressure, will increase venous return and potentially cause worsening heart failure -Daily SAT's & SBT's, extreme agtation with tachypnea when fentanyl and propofol were stopped, precluding SBT this morning. Also worsening renal function requiring volume resuscitation with amphotericin dosing -Sedation target for RASS 0 to -1 -Stress ulcer prophylaxis -VTE prophylaxis, SCDs -HIT panel pending -Tube feedings for nutritional support -Aspiration precautions -Accuchecks with glycemic control. Target glucose of 140-180 mg/dL -Continue bronchodilators with pulmonary hygiene per RT -Maintenance of sleep -wake cycle -Mobility as tolerated by hemodynamics, discussed with PT. Mobility program may help agitation. -Influenza and pneumonia vaccination per protocol ..care plan discussed at length with RN/RT at the bedside ...discussed care plan with ICU tteam on ICU-IDT rounds Discussed with the at the bedside. Updated him and care plan discussed. PROGNOSIS :GUARDED CONDITION: CRITICAL CODE STATUS: FULL CODE The high probability of a clinically significant, sudden or life-threatening deterioration of the [respiratory, cardiovascular, renal] system(s) required my full and direct attention, intervention and personal management. The aggregate critical care time was [35] minutes without overlap. Time includes spent on; [x] Data Review and interpretation [x] Patient assessment and monitoring of vital signs [x] Documentation [x] Medication orders and management Subjective Date of service: 08/26/18 Principal diagnosis: Acute hypoxemic hypercapnic Resp failure; AE-COPD; Acute kidney injury Interval history: Follow up: Aspiration PNA, Abnormal CXR, Hypotension, Acute renal failure, Acute encephaloapthy, Acute hypoxemic respiratory failure onMVS Seen and examined. Vitals, labs, medications, chart and imaging reviewed. 24 hours events reviewed. Agitation on going per RN. No fevers, no vomiting. remains on full mechanical ventilatory support, no vasopressors, on fentanyl and low dose propofol. Less tacyhpnic, spontaneous eye opening, moving all extremities. at the bedside Extreme agitation with tachypnea when propofol and fentanyl was held for SBT this morning. s/p PRBC with appropriate response in hemoglobin levels Pa/FIO2 this morning 200 Objective Vital Signs - 12hr 08/25/18 08/25/18 08/25/18 22:30 22:45 22:58 Temperature Pulse Rate 69 68 69 Pulse Rate [ Anterior Bilateral Throughout] Respiratory 22 21 22 Rate Respiratory Rate [Anterior Bilateral Throughout] Blood Pressure 95/42 94/45 119/54 O2 Sat by Pulse 99 100 99 Oximetry 08/25/18 08/25/18 08/25/18 23:00 23:06 23:15 Temperature Pulse Rate 68 66 64 Pulse Rate [ Anterior Bilateral Throughout] Respiratory 25 H 19 20 Rate Respiratory Rate [Anterior Bilateral Throughout] Blood Pressure 100/43 100/43 96/45 O2 Sat by Pulse 99 99 99 Oximetry 08/25/18 08/25/18 08/25/18 23:23 23:30 23:45 Temperature Pulse Rate 70 68 68 Pulse Rate [ Anterior Bilateral Throughout] Respiratory 21 21 Rate Respiratory Rate [Anterior Bilateral Throughout] Blood Pressure 96/45 116/50 108/47 O2 Sat by Pulse 98 99 98 Oximetry 08/26/18 08/26/18 08/26/18 00:00 00:15 00:30 Temperature 98.6 F Pulse Rate 70 68 73 Pulse Rate [ Anterior Bilateral Throughout] Respiratory 20 22 22 Rate Respiratory Rate [Anterior Bilateral Throughout] Blood Pressure 117/54 124/51 116/55 O2 Sat by Pulse 99 99 98 Oximetry 08/26/18 08/26/18 08/26/18 00:45 01:00 01:15 Temperature Pulse Rate 69 73 73 Pulse Rate [ Anterior Bilateral Throughout] Respiratory 25 H 20 20 Rate Respiratory Rate [Anterior Bilateral Throughout] Blood Pressure 126/53 126/53 109/52 O2 Sat by Pulse 99 98 99 Oximetry 08/26/18 08/26/18 08/26/18 01:30 01:45 02:00 Temperature Pulse Rate 75 76 73 Pulse Rate [ Anterior Bilateral Throughout] Respiratory 23 28 H 24 Rate Respiratory Rate [Anterior Bilateral Throughout] Blood Pressure 126/51 122/53 131/51 O2 Sat by Pulse 98 97 99 Oximetry 08/26/18 08/26/18 08/26/18 02:15 02:30 02:45 Temperature Pulse Rate 77 76 78 Pulse Rate [ Anterior Bilateral Throughout] Respiratory 24 22 20 Rate Respiratory Rate [Anterior Bilateral Throughout] Blood Pressure 124/55 126/52 114/57 O2 Sat by Pulse 98 95 100 Oximetry 08/26/18 08/26/18 08/26/18 03:00 03:04 03:15 Temperature Pulse Rate 76 75 77 Pulse Rate [ 79 82 Anterior Bilateral Throughout] Respiratory 25 H 25 H Rate Respiratory 23 25 H Rate [Anterior Bilateral Throughout] Blood Pressure 128/54 128/54 119/54 O2 Sat by Pulse 100 97 96 Oximetry 08/26/18 08/26/18 08/26/18 03:30 03:45 04:00 Temperature 98.4 F Pulse Rate 77 76 78 Pulse Rate [ Anterior Bilateral Throughout] Respiratory 26 H 25 H 18 Rate Respiratory Rate [Anterior Bilateral Throughout] Blood Pressure 111/45 108/46 124/53 O2 Sat by Pulse 94 94 93 Oximetry 08/26/18 08/26/18 08/26/18 04:15 04:30 04:45 Temperature Pulse Rate 78 79 81 Pulse Rate [ Anterior Bilateral Throughout] Respiratory 29 H 26 H 25 H Rate Respiratory Rate [Anterior Bilateral Throughout] Blood Pressure 114/51 123/53 136/53 O2 Sat by Pulse 91 92 95 Oximetry 08/26/18 08/26/18 08/26/18 05:00 05:15 05:30 Temperature Pulse Rate 82 81 81 Pulse Rate [ Anterior Bilateral Throughout] Respiratory 27 H 24 30 H Rate Respiratory Rate [Anterior Bilateral Throughout] Blood Pressure 133/60 131/61 140/58 O2 Sat by Pulse 94 96 94 Oximetry 08/26/18 08/26/18 08/26/18 05:40 05:45 06:00 Temperature Pulse Rate 82 83 87 Pulse Rate [ Anterior Bilateral Throughout] Respiratory 29 H 24 Rate Respiratory Rate [Anterior Bilateral Throughout] Blood Pressure 140/58 129/59 133/57 O2 Sat by Pulse 95 95 Oximetry 08/26/18 08/26/18 08/26/18 06:15 08:00 09:25 Temperature 99.9 F H Pulse Rate 85 114 H Pulse Rate [ Anterior Bilateral Throughout] Respiratory 16 Rate Respiratory Rate [Anterior Bilateral Throughout] Blood Pressure 125/54 155/90 O2 Sat by Pulse 95 Oximetry 08/26/18 08/26/18 08/26/18 09:49 09:53 10:08 Temperature Pulse Rate 113 H Pulse Rate [ 111 H 90 Anterior Bilateral Throughout] Respiratory Rate Respiratory 43 H 34 H Rate [Anterior Bilateral Throughout] Blood Pressure 107/55 O2 Sat by Pulse 93 Oximetry Constitutional: appears uncomfortable, other (elderly looking CF, normocephalic and atraumatic) Eyes: non-icteric ENT: oropharynx moist, other (ETT 23 cm MARTHA) Neck: supple, no lymphadenopathy, no JVD, other (no thyromegaly) Effort: mildly labored Ascultation: Bilateral: diminished breath sounds, rales, rhonchi (right lung field) Percussion: Bilateral: not dull Cardiovascular: regular rate and rhythm Gastrointestinal: normoactive bowel sounds, soft, non-tender, non-distended Integumentary: normal Extremities: no cyanosis, no edema, no ischemia or petechiae Neurologic: non-focal exam (grossly), pupils equal and round, CN II-XII normal, motor strength normal and Psychiatric: other (unable to assess) CBC and BMP: 08/27/18 04:35 08/27/18 04:35 ABG, PT/INR, D-dimer: ABG POC ABG pH 7.403 (7.35-7.45) 08/26/18 04:53 POC ABG pCO2 30.9 (35-45) L 08/26/18 04:53 POC ABG pO2 70 (80-105) L 08/26/18 04:53 POC ABG HCO3 19.2 (22-26 mml/L) 08/26/18 04:53 POC ABG Total CO2 20 (23-27mmol/L) 08/26/18 04:53 POC ABG O2 Sat 94 08/26/18 04:53 PT/INR, D-dimer D-Dimer 2768.33 ng/mlDDU (0-234) H 08/15/18 18:31 Abnormal lab findings: Abnormal Labs 08/15/18 08/15/18 08/15/18 17:52 17:52 17:52 WBC 12.7 H RBC 3.25 L Hgb Hct RDW Plt Count Lymph % (Auto) Lymph # Seg Neutrophils % Seg Neuts % (Manual) Lymphocytes % (Manual) 6.0 L Nucleated RBC % Seg Neutrophils # Seg Neutrophils # Man Lymphocytes # (Manual) 0.8 L D-Dimer POC ABG pH POC ABG pCO2 POC ABG pO2 VBG pH Sodium Potassium 3.4 L Chloride 94.6 L Carbon Dioxide 17 L BUN 67 H Creatinine 3.5 H Glucose 131 H POC Glucose Hemoglobin A1c Lactic Acid 5.20 H* Calcium 7.6 L Phosphorus AST 887 H ALT 316 H Troponin T C-Reactive Protein Total Protein Albumin 3.1 L Triglycerides LDL Cholesterol Direct HDL Cholesterol Urine WBC (Auto) Salicylates Acetaminophen % CD3 Cells % CD19 Cells Absolute CD19 Count Crossmatch 08/15/18 08/15/18 08/15/18 18:11 18:19 18:31 WBC RBC Hgb Hct RDW Plt Count Lymph % (Auto) Lymph # Seg Neutrophils % Seg Neuts % (Manual) Lymphocytes % (Manual) Nucleated RBC % Seg Neutrophils # Seg Neutrophils # Man Lymphocytes # (Manual) D-Dimer 2768.33 H POC ABG pH 7.173 L POC ABG pCO2 47.8 H POC ABG pO2 177 H VBG pH 7.187 L* Sodium Potassium Chloride Carbon Dioxide BUN Creatinine Glucose POC Glucose Hemoglobin A1c Lactic Acid Calcium Phosphorus AST ALT Troponin T C-Reactive Protein Total Protein Albumin Triglycerides LDL Cholesterol Direct HDL Cholesterol Urine WBC (Auto) Salicylates Acetaminophen % CD3 Cells % CD19 Cells Absolute CD19 Count Crossmatch 08/15/18 08/15/18 08/15/18 18:31 19:14 19:14 WBC RBC Hgb Hct RDW Plt Count Lymph % (Auto) Lymph # Seg Neutrophils % Seg Neuts % (Manual) Lymphocytes % (Manual) Nucleated RBC % Seg Neutrophils # Seg Neutrophils # Man Lymphocytes # (Manual) D-Dimer POC ABG pH POC ABG pCO2 POC ABG pO2 VBG pH Sodium Potassium Chloride Carbon Dioxide BUN Creatinine Glucose POC Glucose Hemoglobin A1c Lactic Acid 2.70 H* Calcium Phosphorus AST ALT Troponin T 0.454 H* C-Reactive Protein Total Protein Albumin Triglycerides 356 H LDL Cholesterol Direct 4 L HDL Cholesterol 10 L Urine WBC (Auto) Salicylates < 0.3 L Acetaminophen % CD3 Cells % CD19 Cells Absolute CD19 Count Crossmatch 08/15/18 08/15/18 08/15/18 19:14 19:15 23:09 WBC RBC Hgb Hct RDW Plt Count Lymph % (Auto) Lymph # Seg Neutrophils % Seg Neuts % (Manual) Lymphocytes % (Manual) Nucleated RBC % Seg Neutrophils # Seg Neutrophils # Man Lymphocytes # (Manual) D-Dimer POC ABG pH POC ABG pCO2 POC ABG pO2 VBG pH Sodium Potassium Chloride Carbon Dioxide BUN Creatinine Glucose POC Glucose Hemoglobin A1c Lactic Acid 3.20 H* Calcium Phosphorus AST ALT Troponin T C-Reactive Protein Total Protein Albumin Triglycerides LDL Cholesterol Direct HDL Cholesterol Urine WBC (Auto) 17.0 H Salicylates Acetaminophen < 5.0 L % CD3 Cells % CD19 Cells Absolute CD19 Count Crossmatch 08/15/18 08/16/18 08/16/18 23:09 01:41 05:38 WBC RBC 3.07 L Hgb 9.8 L Hct 28.7 L RDW Plt Count Lymph % (Auto) Lymph # Seg Neutrophils % Seg Neuts % (Manual) 84.0 H Lymphocytes % (Manual) 6.0 L Nucleated RBC % 4.0 H Seg Neutrophils # Seg Neutrophils # Man Lymphocytes # (Manual) 0.5 L D-Dimer POC ABG pH 7.323 L POC ABG pCO2 34.7 L POC ABG pO2 78 L VBG pH Sodium Potassium Chloride Carbon Dioxide BUN Creatinine Glucose POC Glucose Hemoglobin A1c 6.4 H Lactic Acid Calcium Phosphorus AST ALT Troponin T C-Reactive Protein Total Protein Albumin Triglycerides LDL Cholesterol Direct HDL Cholesterol Urine WBC (Auto) Salicylates Acetaminophen % CD3 Cells % CD19 Cells Absolute CD19 Count Crossmatch 08/16/18 08/16/18 08/17/18 05:38 22:43 03:42 WBC RBC Hgb Hct RDW Plt Count Lymph % (Auto) Lymph # Seg Neutrophils % Seg Neuts % (Manual) Lymphocytes % (Manual) Nucleated RBC % Seg Neutrophils # Seg Neutrophils # Man Lymphocytes # (Manual) D-Dimer POC ABG pH POC ABG pCO2 POC ABG pO2 VBG pH Sodium Potassium 2.9 L* 3.1 L 2.9 L* Chloride 108.8 H 111.9 H Carbon Dioxide 17 L 19 L 21 L BUN 62 H 40 H 33 H Creatinine 2.0 H Glucose 139 H 145 H POC Glucose Hemoglobin A1c Lactic Acid Calcium 7.8 L 8.3 L Phosphorus 1.50 L AST 619 H ALT 353 H Troponin T C-Reactive Protein Total Protein 6.1 L Albumin 2.8 L Triglycerides LDL Cholesterol Direct HDL Cholesterol Urine WBC (Auto) Salicylates Acetaminophen % CD3 Cells % CD19 Cells Absolute CD19 Count Crossmatch 08/17/18 08/17/18 08/18/18 11:02 16:42 03:28 WBC RBC Hgb Hct RDW Plt Count Lymph % (Auto) Lymph # Seg Neutrophils % Seg Neuts % (Manual) Lymphocytes % (Manual) Nucleated RBC % Seg Neutrophils # Seg Neutrophils # Man Lymphocytes # (Manual) D-Dimer POC ABG pH 7.483 H 7.499 H POC ABG pCO2 POC ABG pO2 VBG pH Sodium 147 H Potassium 3.2 L Chloride 115.8 H Carbon Dioxide BUN 23 H Creatinine Glucose 121 H POC Glucose Hemoglobin A1c Lactic Acid Calcium 8.1 L Phosphorus 2.30 L D AST ALT Troponin T C-Reactive Protein Total Protein Albumin Triglycerides LDL Cholesterol Direct HDL Cholesterol Urine WBC (Auto) Salicylates Acetaminophen % CD3 Cells % CD19 Cells Absolute CD19 Count Crossmatch 08/18/18 08/18/18 08/18/18 04:10 13:39 13:39 WBC RBC Hgb Hct RDW Plt Count Lymph % (Auto) Lymph # Seg Neutrophils % Seg Neuts % (Manual) Lymphocytes % (Manual) Nucleated RBC % Seg Neutrophils # Seg Neutrophils # Man Lymphocytes # (Manual) D-Dimer POC ABG pH POC ABG pCO2 POC ABG pO2 VBG pH Sodium 147 H Potassium 3.3 L Chloride 111.9 H Carbon Dioxide BUN 21 H Creatinine Glucose 113 H POC Glucose Hemoglobin A1c Lactic Acid Calcium Phosphorus 1.50 L D AST ALT Troponin T 0.317 H* D C-Reactive Protein 10.70 H Total Protein Albumin Triglycerides LDL Cholesterol Direct HDL Cholesterol Urine WBC (Auto) Salicylates Acetaminophen % CD3 Cells % CD19 Cells Absolute CD19 Count Crossmatch 08/18/18 08/19/18 08/19/18 16:51 03:47 04:15 WBC RBC Hgb Hct RDW Plt Count Lymph % (Auto) Lymph # Seg Neutrophils % Seg Neuts % (Manual) Lymphocytes % (Manual) Nucleated RBC % Seg Neutrophils # Seg Neutrophils # Man Lymphocytes # (Manual) D-Dimer POC ABG pH 7.454 H 7.482 H POC ABG pCO2 POC ABG pO2 65 L VBG pH Sodium 154 H Potassium 3.3 L Chloride 115.1 H Carbon Dioxide BUN 19 H Creatinine Glucose 117 H POC Glucose Hemoglobin A1c Lactic Acid Calcium 7.8 L Phosphorus AST ALT Troponin T C-Reactive Protein Total Protein Albumin Triglycerides LDL Cholesterol Direct HDL Cholesterol Urine WBC (Auto) Salicylates Acetaminophen % CD3 Cells % CD19 Cells Absolute CD19 Count Crossmatch 08/19/18 08/19/18 08/20/18 14:32 16:18 03:51 WBC RBC Hgb Hct RDW Plt Count Lymph % (Auto) Lymph # Seg Neutrophils % Seg Neuts % (Manual) Lymphocytes % (Manual) Nucleated RBC % Seg Neutrophils # Seg Neutrophils # Man Lymphocytes # (Manual) D-Dimer POC ABG pH 7.483 H POC ABG pCO2 33.4 L POC ABG pO2 51 L 74 L VBG pH Sodium Potassium Chloride Carbon Dioxide BUN Creatinine Glucose POC Glucose Hemoglobin A1c Lactic Acid Calcium Phosphorus AST ALT Troponin T C-Reactive Protein Total Protein Albumin Triglycerides LDL Cholesterol Direct HDL Cholesterol Urine WBC (Auto) Salicylates Acetaminophen % CD3 Cells 44 L % CD19 Cells 41 H Absolute CD19 Count 1290 H Crossmatch 08/20/18 08/21/18 08/21/18 05:25 03:54 05:45 WBC 24.1 H RBC 2.83 L Hgb 8.8 L Hct 26.7 L RDW 15.7 H Plt Count 127 L Lymph % (Auto) Lymph # Seg Neutrophils % Seg Neuts % (Manual) 94.0 H Lymphocytes % (Manual) 4.0 L Nucleated RBC % 1.0 H Seg Neutrophils # Seg Neutrophils # Man 22.7 H Lymphocytes # (Manual) 1.0 L D-Dimer POC ABG pH POC ABG pCO2 31.9 L POC ABG pO2 66 L VBG pH Sodium 146 H D Potassium Chloride 111.2 H Carbon Dioxide BUN 24 H Creatinine Glucose 141 H POC Glucose Hemoglobin A1c Lactic Acid Calcium 8.1 L Phosphorus AST 65 H ALT 104 H Troponin T C-Reactive Protein Total Protein 6.2 L Albumin 2.6 L Triglycerides LDL Cholesterol Direct HDL Cholesterol Urine WBC (Auto) Salicylates Acetaminophen % CD3 Cells % CD19 Cells Absolute CD19 Count Crossmatch 08/21/18 08/22/18 08/22/18 05:45 06:20 06:45 WBC RBC Hgb Hct RDW Plt Count Lymph % (Auto) Lymph # Seg Neutrophils % Seg Neuts % (Manual) Lymphocytes % (Manual) Nucleated RBC % Seg Neutrophils # Seg Neutrophils # Man Lymphocytes # (Manual) D-Dimer POC ABG pH POC ABG pCO2 32.9 L POC ABG pO2 VBG pH Sodium Potassium 3.5 L Chloride 109.4 H 112.4 H Carbon Dioxide 21 L 20 L BUN 50 H 61 H Creatinine 2.0 H D 1.9 H Glucose 144 H 154 H POC Glucose Hemoglobin A1c Lactic Acid Calcium 7.6 L 7.8 L Phosphorus AST ALT Troponin T C-Reactive Protein Total Protein 5.3 L Albumin 2.1 L Triglycerides LDL Cholesterol Direct HDL Cholesterol Urine WBC (Auto) Salicylates Acetaminophen % CD3 Cells % CD19 Cells Absolute CD19 Count Crossmatch 08/22/18 08/22/18 08/22/18 06:45 15:29 18:40 WBC RBC Hgb Hct RDW Plt Count Lymph % (Auto) Lymph # Seg Neutrophils % Seg Neuts % (Manual) Lymphocytes % (Manual) Nucleated RBC % Seg Neutrophils # Seg Neutrophils # Man Lymphocytes # (Manual) D-Dimer POC ABG pH POC ABG pCO2 POC ABG pO2 VBG pH Sodium Potassium Chloride Carbon Dioxide BUN Creatinine Glucose POC Glucose 169 H Hemoglobin A1c Lactic Acid Calcium Phosphorus AST ALT Troponin T C-Reactive Protein 4.70 H Total Protein Albumin Triglycerides 197 H LDL Cholesterol Direct HDL Cholesterol Urine WBC (Auto) Salicylates Acetaminophen % CD3 Cells % CD19 Cells Absolute CD19 Count Crossmatch 08/23/18 08/23/18 08/23/18 03:59 21:19 Unknown WBC 12.1 H RBC 2.29 L Hgb 7.1 L Hct 21.7 L RDW 15.7 H Plt Count 106 L Lymph % (Auto) Lymph # Seg Neutrophils % Seg Neuts % (Manual) 92.0 H Lymphocytes % (Manual) 4.0 L Nucleated RBC % Seg Neutrophils # Seg Neutrophils # Man 11.1 H Lymphocytes # (Manual) 0.5 L D-Dimer POC ABG pH 7.306 L POC ABG pCO2 31.3 L POC ABG pO2 119 H 75 L VBG pH Sodium Potassium Chloride Carbon Dioxide BUN Creatinine Glucose POC Glucose Hemoglobin A1c Lactic Acid Calcium Phosphorus AST ALT Troponin T C-Reactive Protein Total Protein Albumin Triglycerides LDL Cholesterol Direct HDL Cholesterol Urine WBC (Auto) Salicylates Acetaminophen % CD3 Cells % CD19 Cells Absolute CD19 Count Crossmatch 08/23/18 08/24/18 08/24/18 Unknown 04:18 08:30 WBC 12.8 H RBC 2.24 L Hgb 7.0 L Hct 21.1 L RDW Plt Count Lymph % (Auto) Lymph # Seg Neutrophils % Seg Neuts % (Manual) 93.0 H Lymphocytes % (Manual) 6.0 L Nucleated RBC % Seg Neutrophils # Seg Neutrophils # Man 11.9 H Lymphocytes # (Manual) 0.8 L D-Dimer POC ABG pH POC ABG pCO2 POC ABG pO2 78 L VBG pH Sodium Potassium Chloride 115.7 H Carbon Dioxide 21 L BUN 64 H Creatinine 2.0 H Glucose 149 H POC Glucose Hemoglobin A1c Lactic Acid Calcium 7.5 L Phosphorus AST ALT Troponin T C-Reactive Protein Total Protein 4.8 L Albumin 2.0 L Triglycerides LDL Cholesterol Direct HDL Cholesterol Urine WBC (Auto) Salicylates Acetaminophen % CD3 Cells % CD19 Cells Absolute CD19 Count Crossmatch 08/24/18 08/24/18 08/24/18 08:30 17:44 18:28 WBC RBC Hgb Hct RDW Plt Count Lymph % (Auto) Lymph # Seg Neutrophils % Seg Neuts % (Manual) Lymphocytes % (Manual) Nucleated RBC % Seg Neutrophils # Seg Neutrophils # Man Lymphocytes # (Manual) D-Dimer POC ABG pH 7.474 H POC ABG pCO2 POC ABG pO2 61 L VBG pH Sodium Potassium Chloride 108.3 H Carbon Dioxide 20 L BUN 65 H Creatinine 2.0 H Glucose 167 H POC Glucose 164 H Hemoglobin A1c Lactic Acid Calcium 7.7 L Phosphorus AST ALT Troponin T C-Reactive Protein Total Protein 5.3 L Albumin 2.2 L Triglycerides LDL Cholesterol Direct HDL Cholesterol Urine WBC (Auto) Salicylates Acetaminophen % CD3 Cells % CD19 Cells Absolute CD19 Count Crossmatch 08/25/18 08/25/18 08/25/18 03:35 05:20 05:20 WBC RBC Hgb 6.7 L Hct 21.0 L RDW Plt Count Lymph % (Auto) Lymph # Seg Neutrophils % Seg Neuts % (Manual) Lymphocytes % (Manual) Nucleated RBC % Seg Neutrophils # Seg Neutrophils # Man Lymphocytes # (Manual) D-Dimer POC ABG pH POC ABG pCO2 POC ABG pO2 79 L VBG pH Sodium Potassium Chloride Carbon Dioxide 21 L BUN 71 H Creatinine 3.1 H D Glucose 171 H POC Glucose Hemoglobin A1c Lactic Acid Calcium 7.5 L Phosphorus AST ALT Troponin T C-Reactive Protein Total Protein Albumin Triglycerides LDL Cholesterol Direct HDL Cholesterol Urine WBC (Auto) Salicylates Acetaminophen % CD3 Cells % CD19 Cells Absolute CD19 Count Crossmatch 08/25/18 08/25/18 08/25/18 05:20 08:52 12:42 WBC RBC Hgb Hct RDW Plt Count Lymph % (Auto) Lymph # Seg Neutrophils % Seg Neuts % (Manual) Lymphocytes % (Manual) Nucleated RBC % Seg Neutrophils # Seg Neutrophils # Man Lymphocytes # (Manual) D-Dimer POC ABG pH POC ABG pCO2 POC ABG pO2 VBG pH Sodium Potassium Chloride Carbon Dioxide BUN Creatinine Glucose POC Glucose 166 H Hemoglobin A1c Lactic Acid Calcium Phosphorus AST ALT Troponin T C-Reactive Protein 5.00 H Total Protein Albumin Triglycerides LDL Cholesterol Direct HDL Cholesterol Urine WBC (Auto) Salicylates Acetaminophen % CD3 Cells % CD19 Cells Absolute CD19 Count Crossmatch See Detail 08/25/18 08/26/18 08/26/18 18:05 00:13 04:53 WBC RBC Hgb Hct RDW Plt Count Lymph % (Auto) Lymph # Seg Neutrophils % Seg Neuts % (Manual) Lymphocytes % (Manual) Nucleated RBC % Seg Neutrophils # Seg Neutrophils # Man Lymphocytes # (Manual) D-Dimer POC ABG pH POC ABG pCO2 30.9 L POC ABG pO2 70 L VBG pH Sodium Potassium Chloride Carbon Dioxide BUN Creatinine Glucose POC Glucose 121 H 164 H Hemoglobin A1c Lactic Acid Calcium Phosphorus AST ALT Troponin T C-Reactive Protein Total Protein Albumin Triglycerides LDL Cholesterol Direct HDL Cholesterol Urine WBC (Auto) Salicylates Acetaminophen % CD3 Cells % CD19 Cells Absolute CD19 Count Crossmatch 08/26/18 08/26/18 08/26/18 05:42 06:00 06:00 WBC RBC 2.62 L Hgb 7.7 L Hct 23.0 L RDW 22.0 H Plt Count Lymph % (Auto) 6.3 L Lymph # 0.7 L Seg Neutrophils % 88.1 H Seg Neuts % (Manual) Lymphocytes % (Manual) Nucleated RBC % Seg Neutrophils # 9.6 H Seg Neutrophils # Man Lymphocytes # (Manual) D-Dimer POC ABG pH POC ABG pCO2 POC ABG pO2 VBG pH Sodium Potassium Chloride Carbon Dioxide 21 L BUN 70 H Creatinine 3.3 H Glucose 146 H POC Glucose 149 H Hemoglobin A1c Lactic Acid Calcium 8.0 L Phosphorus AST ALT Troponin T C-Reactive Protein Total Protein Albumin Triglycerides LDL Cholesterol Direct HDL Cholesterol Urine WBC (Auto) Salicylates Acetaminophen % CD3 Cells % CD19 Cells Absolute CD19 Count Crossmatch Chest x-ray: image reviewed (Bilateral interstitial infiltrates with small pleural effusions) Allied health notes reviewed: RT
--- NOTE | 2018-08-26 10:27 | Progress Note ---
Assessment and Plan Severe sepsis Blood cultures 08/15 - yeast Sputum culture 08/15 - E.coli and Staph aureus Acute renal failure on admission - resolved Acute respiratory failure - intubated and mechanically ventilated Lactic acidosis on admission - resolved Acute transaminitis on admission Hypernatremia Altered mental status History of COPD New onset cardiomyopathy, LVEF 25-30% this admission Previous echo 03/30/2016 at [facility] revealed normal LVEF Previous stress MPI 03/29/2016 at [facility] revealed no ischemia Abnormal ECG showing LBBB, chronic Recent EGD at [facility] 08/08/2018 revealing irregular Z line, gastritis and small histal hernia Recent colonoscopy at [facility] 08/08/2018 revealing sigmoid polyp, transverse colon polyps, inflamed hemorrhoids and diverticulosis Recommend: Continue medical therapy for new onset cardiomyopathy. ICU team planning extubation today Ischemic cardiac evaluation is warranted prior to discharge given recent onset cardiomyopathy Subjective Date of service: 08/26/18 Principal diagnosis: Acute hypoxemic hypercapnic Resp failure; AE-COPD; Acute kidney injury Interval history: Patient is awake. She is intubated. ICU team planning potential extubation this morning Objective Vital Signs Temp Pulse Pulse Resp Resp BP Pulse Ox 08/26/18 10:08 90 34 H 08/26/18 09:53 111 H 43 H 08/26/18 09:49 113 H 107/55 93 08/26/18 09:25 114 H 155/90 08/26/18 08:00 99.9 F H 08/26/18 06:15 85 16 125/54 95 08/26/18 06:00 87 24 133/57 95 08/26/18 05:45 83 29 H 129/59 95 08/26/18 05:40 82 140/58 08/26/18 05:30 81 30 H 140/58 94 08/26/18 05:15 81 24 131/61 96 08/26/18 05:00 82 27 H 133/60 94 08/26/18 04:45 81 25 H 136/53 95 08/26/18 04:30 79 26 H 123/53 92 08/26/18 04:15 78 29 H 114/51 91 08/26/18 04:00 98.4 F 78 18 124/53 93 08/26/18 03:45 76 25 H 108/46 94 08/26/18 03:30 77 26 H 111/45 94 08/26/18 03:15 77 82 25 H 25 H 119/54 96 08/26/18 03:04 75 79 23 128/54 97 08/26/18 03:00 76 25 H 128/54 100 08/26/18 02:45 78 20 114/57 100 08/26/18 02:30 76 22 126/52 95 08/26/18 02:15 77 24 124/55 98 08/26/18 02:00 73 24 131/51 99 08/26/18 01:45 76 28 H 122/53 97 08/26/18 01:30 75 23 126/51 98 08/26/18 01:15 73 20 109/52 99 08/26/18 01:00 73 20 126/53 98 08/26/18 00:45 69 25 H 126/53 99 08/26/18 00:30 73 22 116/55 98 08/26/18 00:15 68 22 124/51 99 08/26/18 00:00 98.6 F 70 20 117/54 99 08/25/18 23:45 68 21 108/47 98 08/25/18 23:30 68 21 116/50 99 08/25/18 23:23 70 96/45 98 08/25/18 23:15 64 20 96/45 99 08/25/18 23:06 66 19 100/43 99 08/25/18 23:00 68 25 H 100/43 99 08/25/18 22:58 69 22 119/54 99 08/25/18 22:45 68 21 94/45 100 08/25/18 22:30 69 22 95/42 99 08/25/18 22:15 70 22 93/43 98 08/25/18 22:00 77 24 99/44 96 08/25/18 21:45 79 26 H 114/50 96 08/25/18 21:30 76 25 H 119/54 98 08/25/18 21:15 74 24 117/53 97 08/25/18 21:00 73 24 118/56 98 08/25/18 20:45 76 23 117/57 97 08/25/18 20:30 73 23 99/48 93 08/25/18 20:15 76 18 123/55 98 08/25/18 20:00 98.4 F 74 19 99/49 99 08/25/18 19:45 76 21 97/47 100 08/25/18 19:35 74 25 H 08/25/18 19:30 78 20 101/47 100 08/25/18 19:19 79 115/53 96 08/25/18 19:18 79 25 H 08/25/18 19:15 78 26 H 115/53 96 08/25/18 19:00 77 18 135/56 98 08/25/18 18:45 76 23 128/56 97 08/25/18 18:30 77 24 130/52 98 08/25/18 18:15 77 23 123/57 99 08/25/18 18:00 77 26 H 118/55 99 08/25/18 17:45 80 27 H 123/58 97 08/25/18 17:30 80 24 118/52 99 08/25/18 17:15 82 27 H 115/51 97 08/25/18 17:00 86 24 117/55 98 08/25/18 16:45 84 24 123/56 97 08/25/18 16:30 81 25 H 118/52 98 08/25/18 16:15 81 26 H 132/56 98 08/25/18 16:00 99.8 F H 81 27 H 138/60 100 08/25/18 15:45 98.9 F 83 22 141/62 97 08/25/18 15:30 85 30 H 132/60 96 08/25/18 15:16 102 H 20 193/101 92 08/25/18 15:15 99 F 81 19 160/70 97 08/25/18 15:05 92 H 30 H 08/25/18 15:00 81 15 148/63 98 08/25/18 14:53 81 25 H 08/25/18 14:45 98.9 F 77 16 148/63 96 08/25/18 14:31 79 24 137/62 95 08/25/18 14:15 98.8 F 77 18 123/49 95 08/25/18 14:00 70 22 115/46 100 08/25/18 13:45 99 F 67 23 109/42 100 08/25/18 13:30 68 23 115/46 99 08/25/18 13:22 67 112/46 100 08/25/18 13:15 98.8 F 66 21 112/46 99 08/25/18 13:00 99.5 F 68 19 106/46 97 08/25/18 12:45 67 22 96/37 97 08/25/18 12:30 66 22 99/37 97 08/25/18 12:15 68 23 95/39 96 08/25/18 12:00 99 F 70 24 87/38 96 08/25/18 11:45 74 21 109/40 100 08/25/18 11:31 79 23 108/44 96 08/25/18 11:15 86 18 116/49 96 08/25/18 11:00 79 20 140/56 97 08/25/18 10:45 80 18 134/59 98 08/25/18 10:31 79 20 122/53 98 - Physical Examination General: Other (intubated and sedated) HEENT: Positive: PERRL, Other (ET tube in place) Neck: Positive: neck supple, trachea midline Cardiac: Positive: Tachycardia Lungs: Positive: Ventilated Respirations Abdomen: Positive: Soft, Active Bowel Sounds Extremities: Absent: edema - Labs and Meds CBC 08/26/18 Range/Units 06:00 WBC 10.9 (4.5-11.0) K/mm3 RBC 2.62 L (3.65-5.03) M/mm3 Hgb 7.7 L (10.1-14.3) gm/dl Hct 23.0 L (30.3-42.9) % Plt Count 197 (140-440) K/mm3 Lymph # 0.7 L (1.2-5.4) K/mm3 [place] # 0.6 (0.0-0.8) K/mm3 Eos # 0.0 (0.0-0.4) K/mm3 Baso # 0.0 (0.0-0.1) K/mm3 Comprehensive Metabolic Panel 08/26/18 Range/Units 06:00 Sodium 139 (137-145) mmol/L Potassium 3.7 (3.6-5.0) mmol/L Chloride 104.8 (98-107) mmol/L Carbon Dioxide 21 L (22-30) mmol/L BUN 70 H (7-17) mg/dL Creatinine 3.3 H (0.7-1.2) mg/dL Glucose 146 H (65-100) mg/dL Calcium 8.0 L (8.4-10.2) mg/dL - Allied health notes Allied health notes reviewed: nursing
[2018-08-26] MEDS: fentaNYL DRIP Premix 2,000 MCG/100 ML BAG IV SCH ×2 (10:40→18:35)
[2018-08-26] MEDS: MYCAMINE 100 MG in NACL 0.9% 100 ML IV SCH (11:00)
--- NOTE | 2018-08-26 14:50 | Progress Note ---
Assessment and Plan 1. Acute kidney injury: Vasomotor CHANDANA. Patient is intermittently hypotensive. BUN and Creatinine level continue to increase. Continue IV fluids. Monitor renal function. Renal prognosis is guarded. Avoid nephrotoxic agents. Meds dosage based on GFR. 2. FEN: Hypokalemia, monitor and replete. Hypernatremia, improved. Metabolic acidosis, monitor. 3. Acute encephalopathy. 4. Respiratory failure: On vent. 5. Sepsis: Fungemia. Followed by ID. 6. Hypotension: Started on Midodrine. 7. Dilated cardiomyopathy with systolic LV dysfunction. 8. Anemia: S/p PRBC. D/w her at the bedside. Subjective Date of service: 08/26/18 Principal diagnosis: Acute hypoxemic hypercapnic Resp failure; AE-COPD; Acute kidney injury Interval history: Patient was seen and examined at the bedside. Objective - Vital Signs Vital signs: Vital Signs - 12hr 08/26/18 08/26/18 08/26/18 03:00 03:04 03:15 Temperature Pulse Rate 76 75 77 Pulse Rate [ 79 82 Anterior Bilateral Throughout] Respiratory 25 H 25 H Rate Respiratory 23 25 H Rate [Anterior Bilateral Throughout] Blood Pressure 128/54 128/54 119/54 O2 Sat by Pulse 100 97 96 Oximetry 08/26/18 08/26/18 08/26/18 03:30 03:45 04:00 Temperature 98.4 F Pulse Rate 77 76 78 Pulse Rate [ Anterior Bilateral Throughout] Respiratory 26 H 25 H 18 Rate Respiratory Rate [Anterior Bilateral Throughout] Blood Pressure 111/45 108/46 124/53 O2 Sat by Pulse 94 94 93 Oximetry 08/26/18 08/26/18 08/26/18 04:15 04:30 04:45 Temperature Pulse Rate 78 79 81 Pulse Rate [ Anterior Bilateral Throughout] Respiratory 29 H 26 H 25 H Rate Respiratory Rate [Anterior Bilateral Throughout] Blood Pressure 114/51 123/53 136/53 O2 Sat by Pulse 91 92 95 Oximetry 08/26/18 08/26/18 08/26/18 05:00 05:15 05:30 Temperature Pulse Rate 82 81 81 Pulse Rate [ Anterior Bilateral Throughout] Respiratory 27 H 24 30 H Rate Respiratory Rate [Anterior Bilateral Throughout] Blood Pressure 133/60 131/61 140/58 O2 Sat by Pulse 94 96 94 Oximetry 08/26/18 08/26/18 08/26/18 05:40 05:45 06:00 Temperature Pulse Rate 82 83 87 Pulse Rate [ Anterior Bilateral Throughout] Respiratory 29 H 24 Rate Respiratory Rate [Anterior Bilateral Throughout] Blood Pressure 140/58 129/59 133/57 O2 Sat by Pulse 95 95 Oximetry 08/26/18 08/26/18 08/26/18 06:15 06:30 06:45 Temperature Pulse Rate 85 83 86 Pulse Rate [ Anterior Bilateral Throughout] Respiratory 16 23 28 H Rate Respiratory Rate [Anterior Bilateral Throughout] Blood Pressure 125/54 130/54 136/56 O2 Sat by Pulse 95 95 94 Oximetry 08/26/18 08/26/18 08/26/18 07:00 07:15 07:30 Temperature Pulse Rate 85 85 84 Pulse Rate [ Anterior Bilateral Throughout] Respiratory 17 19 24 Rate Respiratory Rate [Anterior Bilateral Throughout] Blood Pressure 119/60 126/56 135/60 O2 Sat by Pulse 96 96 96 Oximetry 08/26/18 08/26/18 08/26/18 07:45 08:00 08:15 Temperature 99.9 F H Pulse Rate 89 86 86 Pulse Rate [ Anterior Bilateral Throughout] Respiratory 14 21 26 H Rate Respiratory Rate [Anterior Bilateral Throughout] Blood Pressure 137/96 131/92 135/59 O2 Sat by Pulse 95 95 95 Oximetry 08/26/18 08/26/18 08/26/18 08:30 08:45 09:00 Temperature Pulse Rate 85 85 101 H Pulse Rate [ Anterior Bilateral Throughout] Respiratory 20 17 16 Rate Respiratory Rate [Anterior Bilateral Throughout] Blood Pressure 129/59 139/62 135/59 O2 Sat by Pulse 95 95 95 Oximetry 08/26/18 08/26/18 08/26/18 09:16 09:25 09:30 Temperature Pulse Rate 115 H 114 H 116 H Pulse Rate [ Anterior Bilateral Throughout] Respiratory 30 H 25 H Rate Respiratory Rate [Anterior Bilateral Throughout] Blood Pressure 155/90 155/90 141/69 O2 Sat by Pulse 93 93 Oximetry 08/26/18 08/26/18 08/26/18 09:46 09:49 09:53 Temperature Pulse Rate 112 H 113 H Pulse Rate [ 111 H Anterior Bilateral Throughout] Respiratory 18 Rate Respiratory 43 H Rate [Anterior Bilateral Throughout] Blood Pressure 107/55 107/55 O2 Sat by Pulse 95 93 Oximetry 08/26/18 08/26/18 08/26/18 10:00 10:08 10:15 Temperature Pulse Rate 99 H 95 H Pulse Rate [ 90 Anterior Bilateral Throughout] Respiratory 31 H 31 H Rate Respiratory 34 H Rate [Anterior Bilateral Throughout] Blood Pressure 84/47 93/52 O2 Sat by Pulse 100 92 Oximetry 08/26/18 08/26/18 08/26/18 10:30 10:45 11:00 Temperature Pulse Rate 93 H 90 86 Pulse Rate [ Anterior Bilateral Throughout] Respiratory 21 19 36 H Rate Respiratory Rate [Anterior Bilateral Throughout] Blood Pressure 104/50 96/52 86/47 O2 Sat by Pulse 94 94 93 Oximetry 08/26/18 08/26/18 08/26/18 11:16 11:30 11:44 Temperature Pulse Rate 80 79 77 Pulse Rate [ Anterior Bilateral Throughout] Respiratory 32 H 30 H Rate Respiratory Rate [Anterior Bilateral Throughout] Blood Pressure 86/47 93/43 93/43 O2 Sat by Pulse 95 98 96 Oximetry 08/26/18 08/26/18 08/26/18 11:46 12:00 12:16 Temperature 98.8 F Pulse Rate 76 76 75 Pulse Rate [ Anterior Bilateral Throughout] Respiratory 26 H 26 H 23 Rate Respiratory Rate [Anterior Bilateral Throughout] Blood Pressure 93/43 93/43 95/46 O2 Sat by Pulse 96 96 96 Oximetry 08/26/18 08/26/18 08/26/18 12:30 12:46 13:00 Temperature Pulse Rate 76 74 73 Pulse Rate [ Anterior Bilateral Throughout] Respiratory 23 23 22 Rate Respiratory Rate [Anterior Bilateral Throughout] Blood Pressure 90/49 90/49 96/48 O2 Sat by Pulse 97 97 97 Oximetry 08/26/18 08/26/18 08/26/18 13:16 13:30 13:46 Temperature Pulse Rate 72 72 72 Pulse Rate [ Anterior Bilateral Throughout] Respiratory 19 19 22 Rate Respiratory Rate [Anterior Bilateral Throughout] Blood Pressure 96/48 96/45 96/48 O2 Sat by Pulse 97 96 96 Oximetry 08/26/18 08/26/18 08/26/18 14:00 14:16 14:30 Temperature Pulse Rate 71 71 73 Pulse Rate [ Anterior Bilateral Throughout] Respiratory 20 23 19 Rate Respiratory Rate [Anterior Bilateral Throughout] Blood Pressure 86/40 86/40 86/40 O2 Sat by Pulse 98 96 96 Oximetry - General Appearance General appearance: well-developed, well-nourished, appears stated age, intubated, other (on vent) EENT: ATNC, PERRL, hearing intact Neck: supple Respiratory: Present: Clear to Ascultation Cardiology: regular, S1S2, no murmurs Gastrointestinal: normoactive bowel sounds, no tenderness, no distended Integumentary: no rash, warm and dry Neurologic: other (alert, able to move extremities) Musculoskeletal: other (all 4 extremities are edematous) - Lab 08/26/18 06:00 08/26/18 06:00 Most recent lab results Calcium 8.0 mg/dL (8.4-10.2) L 08/26/18 06:00 Phosphorus 4.30 mg/dL (2.5-4.5) 08/23/18 Unknown Magnesium 2.20 mg/dL (1.7-2.3) 08/23/18 Unknown Medications & Allergies - Medications Allergies/Adverse Reactions: Allergies No Known Allergies Allergy (Unverified 08/15/18 16:49) Home Medications: Home Medications Medication Instructions Recorded Confirmed Last Taken Type Carvedilol 6.25 mg PO BID 08/15/18 08/15/18 Unknown History DULoxetine 60 mg PO QDAY 08/15/18 08/15/18 Unknown History Gabapentin 600 mg PO Q6HR PRN 08/15/18 08/15/18 Unknown History Methylphenidate 5 mg PO TID 08/15/18 08/15/18 Unknown History Morphabond ER 60 mg PO Q12HR 08/15/18 08/15/18 Unknown History Pravastatin Sodium 10 mg PO QDAY 08/15/18 08/15/18 Unknown History Tizanidine HCl 4 mg PO Q12HR 08/15/18 08/15/18 Unknown History oxyCODONE /ACETAMINOPHEN 7.5 - 325 mg PO Q8HR 08/15/18 08/15/18 Unknown History Active Medications: Generic Name Dose Route Start Last Admin Trade Name Freq PRN Reason Stop Dose Admin Acetaminophen 650 mg 08/15/18 22:12 08/24/18 21:30 Tylenol PO 650 mg Q4H PRN Administration Pain MILD(1-3)/Fever >100.5/MONDRAGON Acetaminophen 650 mg 08/16/18 17:01 08/16/18 17:11 Tylenol NH 650 mg Q4H PRN Administration Pain, Mild (1-3) Albuterol 2.5 mg 08/17/18 17:00 Proventil IH Q3HRT PRN Shortness Of Breath Albuterol/Ipratropium 1 ampul 08/20/18 14:00 08/26/18 09:53 Duoneb *Not For Prn Use* IH Not Given Q6HRT LAMAR Lipase/Protease/Amylase 1 each 08/17/18 15:55 Pancresam Elizabeth 10,500 Unit FEEDTUBE PRN PRN For Clogged Feeding Tube Arformoterol Tartrate 15 mcg 08/18/18 20:00 08/26/18 09:53 Brovana Nebu IH 15 mcg Q12HRT LAMAR Administration Budesonide 0.5 mg 08/18/18 20:00 08/26/18 09:53 Pulmicort IH 0.5 mg Q12HRT LAMAR Administration Carvedilol 6.25 mg 08/15/18 22:45 08/26/18 09:25 Coreg PO 6.25 mg BID LAMAR Administration Diphenhydramine HCl 25 mg 08/22/18 11:30 08/25/18 12:35 Benadryl IV 25 mg Q24H LAMAR Administration Duloxetine HCl 60 mg 08/16/18 10:00 08/26/18 09:20 Cymbalta PO 60 mg QDAY LAMAR Administration Famotidine 20 mg 08/21/18 10:00 08/26/18 09:20 Pepcid PO 20 mg DAILY LAMAR Administration Fentanyl 50 mcg 08/15/18 21:55 08/17/18 13:36 Sublimaze IV 50 mcg Q10MIN PRN Administration ANALGESIA Hydralazine HCl 10 mg 08/19/18 13:59 08/19/18 15:06 Apresoline IV 10 mg Q3H PRN Administration Hydralazine HCl 25 mg 08/24/18 14:00 08/26/18 05:40 Apresoline PO 25 mg Q8HR LAMAR Administration Hydrophilic Ointment 1 applic 08/15/18 21:55 Vaseline Lip Therapy TP Q2HR PRN Dry Lips Fentanyl Citrate 2,000 mcg in 100 mls @ 4.082 mls/hr 08/15/18 22:00 08/26/18 13:38 Fentanyl Drip Premix IV 3 mcg/kg/hr TITR LAMAR 12.247 mls/hr Titration Protocol 1 MCG/KG/HR Propofol 1,000 mg in 100 mls @ 2.449 mls/hr 08/15/18 21:15 08/26/18 08:30 Diprivan 10 Mg/Ml IV 0 mcg/kg/min TITR LAMAR 0 mls/hr Titration Protocol 5 MCG/KG/MIN Norepinephrine 4 mg in 250 mls @ 7.5 mls/hr 08/17/18 20:00 08/26/18 05:42 Levophed Drip 4 Mg/Ns 250 Ml IV 0 mcg/min TITR LAMAR 0 mls/hr Titration Protocol 2 MCG/MIN Cefazolin Sodium 2 gm/ Sodium 100 mls @ 100 mls/hr 08/22/18 12:00 08/26/18 10:47 Chloride IV 100 mls/hr Q12HR LAMAR Administration Sodium Chloride 1,000 mls @ 50 mls/hr 08/22/18 12:00 08/25/18 10:52 Nacl 0.9% 1000 Ml IV 50 mls/hr DIRECT LAMAR Administration Micafungin Sodium 100 mg/ 100 mls @ 100 mls/hr 08/26/18 11:00 08/26/18 11:00 Sodium Chloride IV 100 mls/hr QDAY LAMAR Administration Protocol Metoclopramide HCl 5 mg 08/15/18 22:50 Reglan IV Q6H PRN Nausea And Vomiting Ondansetron HCl 4 mg 08/15/18 22:12 Zofran IV Q8H PRN Nausea And Vomiting Quetiapine Fumarate 200 mg 08/22/18 12:00 08/26/18 09:19 Seroquel PO 200 mg BID LAMAR Administration Simple Syrup 15 ml 08/17/18 15:55 Simple Syrup FEEDTUBE PRN PRN Hypoglycemia Simple Syrup 30 ml 08/17/18 15:55 Simple Syrup FEEDTUBE PRN PRN Hypoglycemia Sodium Bicarbonate 325 mg 08/17/18 15:55 Sodium Bicarbonate FEEDTUBE PRN PRN For Clogged Feeding Tube Sodium Chloride 10 ml 08/16/18 10:00 08/26/18 11:01 Sodium Chloride Flush Syringe 10 Ml IV 10 ml BID LAMAR Administration Sodium Chloride 10 ml 08/15/18 22:12 08/25/18 21:35 Sodium Chloride Flush Syringe 10 Ml IV 10 ml PRN PRN Administration LINE FLUSH
--- NOTE | 2018-08-26 16:02 | XRay Report ---
PROCEDURE: XR CHEST 1V AP TECHNIQUE: Frontal portable view of the chest HISTORY: PICC LiNE UPPER ARM COMPARISONS: Chest x-ray dated August 21, 2018 FINDINGS: A right-sided PICC line is in place with the tip projected in the region of the superior vena cava. A right internal jugular venous catheter is demonstrated with the tip projected in the region of the caval atrial junction. The tip and side-port of the esophagogastric tube are projected in the region of the stomach. The tip of the endotracheal tube is below the level of the clavicles and above the level of the madhuri a. There is a bilateral interstitial and airspace process that has increased in degree in the interval. There appears to be a small right pleural fluid collection. There is no evidence of pneumothorax. The cardiac silhouette is enlarged not significantly changed. The thoracic aorta is tortuous. The bony structures are notable retained hardware in the cervical spine. IMPRESSION: 1. Lines and tubes demonstrated to be in satisfactory position. 2. Interval increase in bilateral interstitial and airspace process with right pleural effusion. 3. Stable enlarged cardiac silhouette. This document is electronically signed by Kristin Schwartz MD., August 26 2018 04:00:49 PM ET
[2018-08-26] MEDS: PROAMATINE PO SCH ×2 (17:40→21:51)
[2018-08-27] MEDS: fentaNYL DRIP Premix 2,000 MCG/100 ML BAG IV SCH ×3 (02:10→19:32)
[2018-08-27 05:35] LABS: Basophils % (Auto) 0.1 % (0.0-1.8); Hematocrit 22.3 % (30.3-42.9); Hemoglobin 7.6 gm/dl (10.1-14.3); Lymphocytes # (Auto) 0.7 K/mm3 (1.2-5.4); Lymphocytes % (Auto) 7.3 % (13.4-35.0); Mean Corpuscular HGB Conc 34 % (30-34); Mean Corpuscular Volume 89 fl (79-97); Monocytes # (Auto) 0.7 K/mm3 (0.0-0.8); Platelet Count 199 K/mm3 (140-440)
[2018-08-27 05:50] LABS: Red Cell Distribution Width 21.8 % (13.2-15.2)
[2018-08-27 05:54] LABS: Calcium 8.5 mg/dL (8.4-10.2)
[2018-08-27] MEDS: BROVANA NEBU IH SCH ×3 (06:15→19:26)
[2018-08-27] MEDS: DUONEB *Not for PRN Use IH SCH ×5 (06:16→19:26)
[2018-08-27] MEDS: PULMICORT IH SCH ×3 (06:16→19:26)
[2018-08-27] MEDS: ceFAZolin 2 GM in NACL 0.9% 100 ML IV SCH ×2 (09:20→22:00)
[2018-08-27] MEDS: MYCAMINE 100 MG in NACL 0.9% 100 ML IV SCH (09:20)
[2018-08-27] MEDS: PEPCID PO SCH (09:21)
[2018-08-27] MEDS: PROAMATINE PO SCH ×3 (09:21→19:33)
[2018-08-27] MEDS: COREG PO SCH ×2 (09:25→22:01)
--- NOTE | 2018-08-27 11:47 | Progress Note ---
Assessment and Plan Acute hypoxic-hypercapnic respiratory failure on MVS Acute COPD exacerbation NSTEMI Acute encephalopathy (toxic-metabolic) Thrombocytopenia Hypokalemia Acute kidney injury h/o Chronic Narcotic Dependence Aspiration pneumonia/CAP Hypokalemia GNR in tracheal aspirate Hypernatremia (Prior CXR's suggest chronic/structural lung disease and etiology of fungemia unclear) - reduce Psupp to 10 - continue daily SAT's & SBT's as tolerated - reduce set rate at 12/min for now - tentative extubation next 24-48 hours if tolerates extended SBT on Psupp of </= 10 cm h2O - repeat BC's NGTD - continue accuchecks q6h and target glycemic control for BG 140 - 180 mg/dl acutely - azotemia improving (appreciate nephrology input) - continue seroquel at 200 mg bid - stopped lovenox and sent HIT assay re: acute thrombocytopenia (pending) - continue amphotericin for fungemia - nephrology evaluation ongoing re: CHANDANA in setting of IV contrast and now requiring amphotericin - prn triglyceride levels re: propofol infusion - cardiology consulted for CHF - follow CD4 count (HIV serologies negative) - complete antiinfectives per ID rec's - continue brovana & pulmicort re: COPD - Continue to Wean supplemental oxygen to keep O2 sats 88-90% (restrictive Oxygen strategies acutely) - continue lung protective strategies - Daily ABGs/CXR for now - VAP bundle addressed - continue to avoid benzodiazepines, use high dose fentanyl for agitation and analgesia - Sedation target for RASS 0 to -1 - Stress ulcer prophylaxis - VTE prophylaxis - enteral Nutrition as tolerated - VAP bundle addressed - Free water flushes for hypernatremia - Continue bronchodilators with pulmonary hygiene per RT - Maintenance of sleep -wake cycle - Mobility protocol for pressure ulcer prophylaxis as tolerated by hemodynamics - Influenza and pneumonia vaccination per protocol ..care plan discussed at length with family at the bedside ... re-evaluate in am & prn PROGNOSIS :FAIR CONDITION: CRITICAL CODE STATUS: FULL CODE The high probability of a clinically significant, sudden or life-threatening deterioration of the [respiratory, neurology, renal] system(s) required my full and direct attention, intervention and personal management. The aggregate critical care time was [32] minutes without overlap. Time includes spent on; [x] Data Review and interpretation [x] Patient assessment and monitoring of vital signs [x] Documentation [x] Medication orders and management Subjective Date of service: 08/27/18 Principal diagnosis: Acute hypoxemic hypercapnic Resp failure; AE-COPD; Acute kidney injury Interval history: Patient is seen today for: Acute hypoxemic - hypercapnic respiratory failure on MVS; Acute COPD exacerbation; Acute encephalopathy (toxic-metabolic); Hypokalemia; Acute kidney injury Seen and examined at bedside; 24hour events reviewed; nursing and respiratory care staff consulted; no adverse overnight events reported to me; resting peacefully in bed; on PSV 05/05 and tolerating decently so far; responsive; den ies acute chest pains; No N/V/F/C; in room and care plan discussed at length with him also. Objective Vital Signs - 12hr 08/27/18 08/27/18 08/27/18 00:00 00:16 00:30 Temperature Pulse Rate 93 H 77 77 Pulse Rate [ Anterior Bilateral Throughout] Respiratory 20 19 21 Rate Respiratory Rate [Anterior Bilateral Throughout] Blood Pressure 107/55 104/41 103/47 O2 Sat by Pulse 94 95 95 Oximetry 08/27/18 08/27/18 08/27/18 00:46 01:00 01:16 Temperature Pulse Rate 78 79 79 Pulse Rate [ Anterior Bilateral Throughout] Respiratory 21 22 24 Rate Respiratory Rate [Anterior Bilateral Throughout] Blood Pressure 103/47 106/42 106/42 O2 Sat by Pulse 93 93 93 Oximetry 08/27/18 08/27/18 08/27/18 01:30 01:46 02:00 Temperature Pulse Rate 77 77 77 Pulse Rate [ Anterior Bilateral Throughout] Respiratory 22 23 20 Rate Respiratory Rate [Anterior Bilateral Throughout] Blood Pressure 108/43 108/43 107/43 O2 Sat by Pulse 92 93 93 Oximetry 08/27/18 08/27/18 08/27/18 02:16 02:30 02:46 Temperature 100.3 F H Pulse Rate 74 75 75 Pulse Rate [ Anterior Bilateral Throughout] Respiratory 22 22 19 Rate Respiratory Rate [Anterior Bilateral Throughout] Blood Pressure 107/43 115/45 115/45 O2 Sat by Pulse 92 93 94 Oximetry 08/27/18 08/27/18 08/27/18 03:00 03:16 03:30 Temperature Pulse Rate 79 79 78 Pulse Rate [ Anterior Bilateral Throughout] Respiratory 21 24 21 Rate Respiratory Rate [Anterior Bilateral Throughout] Blood Pressure 115/45 123/48 O2 Sat by Pulse 94 93 93 Oximetry 08/27/18 08/27/18 08/27/18 03:46 04:00 04:16 Temperature Pulse Rate 85 93 H 93 H Pulse Rate [ Anterior Bilateral Throughout] Respiratory 10 L 17 21 Rate Respiratory Rate [Anterior Bilateral Throughout] Blood Pressure 114/42 103/67 119/59 O2 Sat by Pulse 93 96 91 Oximetry 08/27/18 08/27/18 08/27/18 04:30 04:46 05:00 Temperature Pulse Rate 96 H 99 H 96 H Pulse Rate [ Anterior Bilateral Throughout] Respiratory 15 19 21 Rate Respiratory Rate [Anterior Bilateral Throughout] Blood Pressure 119/59 103/67 103/67 O2 Sat by Pulse 91 91 93 Oximetry 08/27/18 08/27/18 08/27/18 05:16 05:30 05:46 Temperature Pulse Rate 95 H 93 H 92 H Pulse Rate [ Anterior Bilateral Throughout] Respiratory 20 26 H 30 H Rate Respiratory Rate [Anterior Bilateral Throughout] Blood Pressure 103/67 103/67 100/67 O2 Sat by Pulse 94 94 94 Oximetry 08/27/18 08/27/18 08/27/18 06:00 06:16 06:30 Temperature Pulse Rate 95 H 93 H 93 H Pulse Rate [ Anterior Bilateral Throughout] Respiratory 25 H 21 22 Rate Respiratory Rate [Anterior Bilateral Throughout] Blood Pressure 103/67 128/62 144/68 O2 Sat by Pulse 94 95 94 Oximetry 08/27/18 08/27/18 08/27/18 06:46 07:00 07:16 Temperature Pulse Rate 93 H 95 H 95 H Pulse Rate [ Anterior Bilateral Throughout] Respiratory 25 H 18 16 Rate Respiratory Rate [Anterior Bilateral Throughout] Blood Pressure 144/68 154/69 154/69 O2 Sat by Pulse 94 94 94 Oximetry 08/27/18 08/27/18 08/27/18 07:30 07:46 08:00 Temperature 101.1 F H Pulse Rate 93 H 94 H 93 H Pulse Rate [ Anterior Bilateral Throughout] Respiratory 22 17 22 Rate Respiratory Rate [Anterior Bilateral Throughout] Blood Pressure 154/69 144/71 152/70 O2 Sat by Pulse 95 95 95 Oximetry 08/27/18 08/27/18 08/27/18 08:16 08:30 08:46 Temperature Pulse Rate 93 H 94 H 91 H Pulse Rate [ Anterior Bilateral Throughout] Respiratory 21 20 20 Rate Respiratory Rate [Anterior Bilateral Throughout] Blood Pressure 152/70 152/70 156/63 O2 Sat by Pulse 95 96 96 Oximetry 08/27/18 08/27/18 08/27/18 08:47 09:00 09:10 Temperature Pulse Rate 93 H 90 Pulse Rate [ 94 H 920 H Anterior Bilateral Throughout] Respiratory 23 Rate Respiratory 19 22 Rate [Anterior Bilateral Throughout] Blood Pressure 153/63 156/63 O2 Sat by Pulse 95 99 Oximetry 08/27/18 08/27/18 08/27/18 09:16 09:19 09:25 Temperature Pulse Rate 89 88 92 H Pulse Rate [ Anterior Bilateral Throughout] Respiratory 23 Rate Respiratory Rate [Anterior Bilateral Throughout] Blood Pressure 156/63 144/63 144/63 O2 Sat by Pulse 99 94 Oximetry 08/27/18 08/27/18 09:30 09:46 Temperature Pulse Rate 92 H 83 Pulse Rate [ Anterior Bilateral Throughout] Respiratory 21 22 Rate Respiratory Rate [Anterior Bilateral Throughout] Blood Pressure 141/68 144/63 O2 Sat by Pulse 95 Oximetry Constitutional: appears uncomfortable, other (elderly looking CF, normocephalic and atraumatic) Eyes: non-icteric ENT: oropharynx moist, other (ETT 23 cm MARTHA) Neck: supple, no lymphadenopathy, no JVD, other (no thyromegaly) Effort: mildly labored Ascultation: Bilateral: diminished breath sounds, rhonchi Percussion: Bilateral: not dull Cardiovascular: regular rate and rhythm Gastrointestinal: normoactive bowel sounds, soft, non-tender, non-distended Integumentary: normal Extremities: no cyanosis, no edema, no ischemia or petechiae Neurologic: non-focal exam (grossly), pupils equal and round, CN II-XII normal, motor strength normal and Psychiatric: other (unable to assess) CBC and BMP: 08/28/18 05:20 08/28/18 05:20 ABG, PT/INR, D-dimer: ABG POC ABG pH 7.403 (7.35-7.45) 08/26/18 04:53 POC ABG pCO2 30.9 (35-45) L 08/26/18 04:53 POC ABG pO2 70 (80-105) L 08/26/18 04:53 POC ABG HCO3 19.2 (22-26 mml/L) 08/26/18 04:53 POC ABG Total CO2 20 (23-27mmol/L) 08/26/18 04:53 POC ABG O2 Sat 94 08/26/18 04:53 PT/INR, D-dimer D-Dimer 2768.33 ng/mlDDU (0-234) H 08/15/18 18:31 Abnormal lab findings: Abnormal Labs 08/15/18 08/15/18 08/15/18 17:52 17:52 17:52 WBC 12.7 H RBC 3.25 L Hgb Hct RDW Plt Count Lymph % (Auto) Lymph # Seg Neutrophils % Seg Neuts % (Manual) Lymphocytes % (Manual) 6.0 L Nucleated RBC % Seg Neutrophils # Seg Neutrophils # Man Lymphocytes # (Manual) 0.8 L D-Dimer POC ABG pH POC ABG pCO2 POC ABG pO2 VBG pH Sodium Potassium 3.4 L Chloride 94.6 L Carbon Dioxide 17 L BUN 67 H Creatinine 3.5 H Glucose 131 H POC Glucose Hemoglobin A1c Lactic Acid 5.20 H* Calcium 7.6 L Phosphorus AST 887 H ALT 316 H Troponin T C-Reactive Protein Total Protein Albumin 3.1 L Triglycerides LDL Cholesterol Direct HDL Cholesterol Urine WBC (Auto) Salicylates Acetaminophen % CD3 Cells % CD19 Cells Absolute CD19 Count Crossmatch 08/15/18 08/15/18 08/15/18 18:11 18:19 18:31 WBC RBC Hgb Hct RDW Plt Count Lymph % (Auto) Lymph # Seg Neutrophils % Seg Neuts % (Manual) Lymphocytes % (Manual) Nucleated RBC % Seg Neutrophils # Seg Neutrophils # Man Lymphocytes # (Manual) D-Dimer 2768.33 H POC ABG pH 7.173 L POC ABG pCO2 47.8 H POC ABG pO2 177 H VBG pH 7.187 L* Sodium Potassium Chloride Carbon Dioxide BUN Creatinine Glucose POC Glucose Hemoglobin A1c Lactic Acid Calcium Phosphorus AST ALT Troponin T C-Reactive Protein Total Protein Albumin Triglycerides LDL Cholesterol Direct HDL Cholesterol Urine WBC (Auto) Salicylates Acetaminophen % CD3 Cells % CD19 Cells Absolute CD19 Count Crossmatch 08/15/18 08/15/18 08/15/18 18:31 19:14 19:14 WBC RBC Hgb Hct RDW Plt Count Lymph % (Auto) Lymph # Seg Neutrophils % Seg Neuts % (Manual) Lymphocytes % (Manual) Nucleated RBC % Seg Neutrophils # Seg Neutrophils # Man Lymphocytes # (Manual) D-Dimer POC ABG pH POC ABG pCO2 POC ABG pO2 VBG pH Sodium Potassium Chloride Carbon Dioxide BUN Creatinine Glucose POC Glucose Hemoglobin A1c Lactic Acid 2.70 H* Calcium Phosphorus AST ALT Troponin T 0.454 H* C-Reactive Protein Total Protein Albumin Triglycerides 356 H LDL Cholesterol Direct 4 L HDL Cholesterol 10 L Urine WBC (Auto) Salicylates < 0.3 L Acetaminophen % CD3 Cells % CD19 Cells Absolute CD19 Count Crossmatch 08/15/18 08/15/18 08/15/18 19:14 19:15 23:09 WBC RBC Hgb Hct RDW Plt Count Lymph % (Auto) Lymph # Seg Neutrophils % Seg Neuts % (Manual) Lymphocytes % (Manual) Nucleated RBC % Seg Neutrophils # Seg Neutrophils # Man Lymphocytes # (Manual) D-Dimer POC ABG pH POC ABG pCO2 POC ABG pO2 VBG pH Sodium Potassium Chloride Carbon Dioxide BUN Creatinine Glucose POC Glucose Hemoglobin A1c Lactic Acid 3.20 H* Calcium Phosphorus AST ALT Troponin T C-Reactive Protein Total Protein Albumin Triglycerides LDL Cholesterol Direct HDL Cholesterol Urine WBC (Auto) 17.0 H Salicylates Acetaminophen < 5.0 L % CD3 Cells % CD19 Cells Absolute CD19 Count Crossmatch 08/15/18 08/16/18 08/16/18 23:09 01:41 05:38 WBC RBC 3.07 L Hgb 9.8 L Hct 28.7 L RDW Plt Count Lymph % (Auto) Lymph # Seg Neutrophils % Seg Neuts % (Manual) 84.0 H Lymphocytes % (Manual) 6.0 L Nucleated RBC % 4.0 H Seg Neutrophils # Seg Neutrophils # Man Lymphocytes # (Manual) 0.5 L D-Dimer POC ABG pH 7.323 L POC ABG pCO2 34.7 L POC ABG pO2 78 L VBG pH Sodium Potassium Chloride Carbon Dioxide BUN Creatinine Glucose POC Glucose Hemoglobin A1c 6.4 H Lactic Acid Calcium Phosphorus AST ALT Troponin T C-Reactive Protein Total Protein Albumin Triglycerides LDL Cholesterol Direct HDL Cholesterol Urine WBC (Auto) Salicylates Acetaminophen % CD3 Cells % CD19 Cells Absolute CD19 Count Crossmatch 08/16/18 08/16/18 08/17/18 05:38 22:43 03:42 WBC RBC Hgb Hct RDW Plt Count Lymph % (Auto) Lymph # Seg Neutrophils % Seg Neuts % (Manual) Lymphocytes % (Manual) Nucleated RBC % Seg Neutrophils # Seg Neutrophils # Man Lymphocytes # (Manual) D-Dimer POC ABG pH POC ABG pCO2 POC ABG pO2 VBG pH Sodium Potassium 2.9 L* 3.1 L 2.9 L* Chloride 108.8 H 111.9 H Carbon Dioxide 17 L 19 L 21 L BUN 62 H 40 H 33 H Creatinine 2.0 H Glucose 139 H 145 H POC Glucose Hemoglobin A1c Lactic Acid Calcium 7.8 L 8.3 L Phosphorus 1.50 L AST 619 H ALT 353 H Troponin T C-Reactive Protein Total Protein 6.1 L Albumin 2.8 L Triglycerides LDL Cholesterol Direct HDL Cholesterol Urine WBC (Auto) Salicylates Acetaminophen % CD3 Cells % CD19 Cells Absolute CD19 Count Crossmatch 08/17/18 08/17/18 08/18/18 11:02 16:42 03:28 WBC RBC Hgb Hct RDW Plt Count Lymph % (Auto) Lymph # Seg Neutrophils % Seg Neuts % (Manual) Lymphocytes % (Manual) Nucleated RBC % Seg Neutrophils # Seg Neutrophils # Man Lymphocytes # (Manual) D-Dimer POC ABG pH 7.483 H 7.499 H POC ABG pCO2 POC ABG pO2 VBG pH Sodium 147 H Potassium 3.2 L Chloride 115.8 H Carbon Dioxide BUN 23 H Creatinine Glucose 121 H POC Glucose Hemoglobin A1c Lactic Acid Calcium 8.1 L Phosphorus 2.30 L D AST ALT Troponin T C-Reactive Protein Total Protein Albumin Triglycerides LDL Cholesterol Direct HDL Cholesterol Urine WBC (Auto) Salicylates Acetaminophen % CD3 Cells % CD19 Cells Absolute CD19 Count Crossmatch 08/18/18 08/18/18 08/18/18 04:10 13:39 13:39 WBC RBC Hgb Hct RDW Plt Count Lymph % (Auto) Lymph # Seg Neutrophils % Seg Neuts % (Manual) Lymphocytes % (Manual) Nucleated RBC % Seg Neutrophils # Seg Neutrophils # Man Lymphocytes # (Manual) D-Dimer POC ABG pH POC ABG pCO2 POC ABG pO2 VBG pH Sodium 147 H Potassium 3.3 L Chloride 111.9 H Carbon Dioxide BUN 21 H Creatinine Glucose 113 H POC Glucose Hemoglobin A1c Lactic Acid Calcium Phosphorus 1.50 L D AST ALT Troponin T 0.317 H* D C-Reactive Protein 10.70 H Total Protein Albumin Triglycerides LDL Cholesterol Direct HDL Cholesterol Urine WBC (Auto) Salicylates Acetaminophen % CD3 Cells % CD19 Cells Absolute CD19 Count Crossmatch 08/18/18 08/19/1808/19/19 16:51 03:47 04:15 WBC RBC Hgb Hct RDW Plt Count Lymph % (Auto) Lymph # Seg Neutrophils % Seg Neuts % (Manual) Lymphocytes % (Manual) Nucleated RBC % Seg Neutrophils # Seg Neutrophils # Man Lymphocytes # (Manual) D-Dimer POC ABG pH 7.454 H 7.482 H POC ABG pCO2 POC ABG pO2 65 L VBG pH Sodium 154 H Potassium 3.3 L Chloride 115.1 H Carbon Dioxide BUN 19 H Creatinine Glucose 117 H POC Glucose Hemoglobin A1c Lactic Acid Calcium 7.8 L Phosphorus AST ALT Troponin T C-Reactive Protein Total Protein Albumin Triglycerides LDL Cholesterol Direct HDL Cholesterol Urine WBC (Auto) Salicylates Acetaminophen % CD3 Cells % CD19 Cells Absolute CD19 Count Crossmatch 08/19/18 08/19/18 08/20/18 14:32 16:18 03:51 WBC RBC Hgb Hct RDW Plt Count Lymph % (Auto) Lymph # Seg Neutrophils % Seg Neuts % (Manual) Lymphocytes % (Manual) Nucleated RBC % Seg Neutrophils # Seg Neutrophils # Man Lymphocytes # (Manual) D-Dimer POC ABG pH 7.483 H POC ABG pCO2 33.4 L POC ABG pO2 51 L 74 L VBG pH Sodium Potassium Chloride Carbon Dioxide BUN Creatinine Glucose POC Glucose Hemoglobin A1c Lactic Acid Calcium Phosphorus AST ALT Troponin T C-Reactive Protein Total Protein Albumin Triglycerides LDL Cholesterol Direct HDL Cholesterol Urine WBC (Auto) Salicylates Acetaminophen % CD3 Cells 44 L % CD19 Cells 41 H Absolute CD19 Count 1290 H Crossmatch 08/20/18 08/21/18 08/21/18 05:25 03:54 05:45 WBC 24.1 H RBC 2.83 L Hgb 8.8 L Hct 26.7 L RDW 15.7 H Plt Count 127 L Lymph % (Auto) Lymph # Seg Neutrophils % Seg Neuts % (Manual) 94.0 H Lymphocytes % (Manual) 4.0 L Nucleated RBC % 1.0 H Seg Neutrophils # Seg Neutrophils # Man 22.7 H Lymphocytes # (Manual) 1.0 L D-Dimer POC ABG pH POC ABG pCO2 31.9 L POC ABG pO2 66 L VBG pH Sodium 146 H D Potassium Chloride 111.2 H Carbon Dioxide BUN 24 H Creatinine Glucose 141 H POC Glucose Hemoglobin A1c Lactic Acid Calcium 8.1 L Phosphorus AST 65 H ALT 104 H Troponin T C-Reactive Protein Total Protein 6.2 L Albumin 2.6 L Triglycerides LDL Cholesterol Direct HDL Cholesterol Urine WBC (Auto) Salicylates Acetaminophen % CD3 Cells % CD19 Cells Absolute CD19 Count Crossmatch 08/21/18 08/22/18 08/22/18 05:45 06:20 06:45 WBC RBC Hgb Hct RDW Plt Count Lymph % (Auto) Lymph # Seg Neutrophils % Seg Neuts % (Manual) Lymphocytes % (Manual) Nucleated RBC % Seg Neutrophils # Seg Neutrophils # Man Lymphocytes # (Manual) D-Dimer POC ABG pH POC ABG pCO2 32.9 L POC ABG pO2 VBG pH Sodium Potassium 3.5 L Chloride 109.4 H 112.4 H Carbon Dioxide 21 L 20 L BUN 50 H 61 H Creatinine 2.0 H D 1.9 H Glucose 144 H 154 H POC Glucose Hemoglobin A1c Lactic Acid Calcium 7.6 L 7.8 L Phosphorus AST ALT Troponin T C-Reactive Protein Total Protein 5.3 L Albumin 2.1 L Triglycerides LDL Cholesterol Direct HDL Cholesterol Urine WBC (Auto) Salicylates Acetaminophen % CD3 Cells % CD19 Cells Absolute CD19 Count Crossmatch 08/22/18 08/22/18 08/22/18 06:45 15:29 18:40 WBC RBC Hgb Hct RDW Plt Count Lymph % (Auto) Lymph # Seg Neutrophils % Seg Neuts % (Manual) Lymphocytes % (Manual) Nucleated RBC % Seg Neutrophils # Seg Neutrophils # Man Lymphocytes # (Manual) D-Dimer POC ABG pH POC ABG pCO2 POC ABG pO2 VBG pH Sodium Potassium Chloride Carbon Dioxide BUN Creatinine Glucose POC Glucose 169 H Hemoglobin A1c Lactic Acid Calcium Phosphorus AST ALT Troponin T C-Reactive Protein 4.70 H Total Protein Albumin Triglycerides 197 H LDL Cholesterol Direct HDL Cholesterol Urine WBC (Auto) Salicylates Acetaminophen % CD3 Cells % CD19 Cells Absolute CD19 Count Crossmatch 08/23/18 08/23/18 08/23/18 03:59 21:19 Unknown WBC 12.1 H RBC 2.29 L Hgb 7.1 L Hct 21.7 L RDW 15.7 H Plt Count 106 L Lymph % (Auto) Lymph # Seg Neutrophils % Seg Neuts % (Manual) 92.0 H Lymphocytes % (Manual) 4.0 L Nucleated RBC % Seg Neutrophils # Seg Neutrophils # Man 11.1 H Lymphocytes # (Manual) 0.5 L D-Dimer POC ABG pH 7.306 L POC ABG pCO2 31.3 L POC ABG pO2 119 H 75 L VBG pH Sodium Potassium Chloride Carbon Dioxide BUN Creatinine Glucose POC Glucose Hemoglobin A1c Lactic Acid Calcium Phosphorus AST ALT Troponin T C-Reactive Protein Total Protein Albumin Triglycerides LDL Cholesterol Direct HDL Cholesterol Urine WBC (Auto) Salicylates Acetaminophen % CD3 Cells % CD19 Cells Absolute CD19 Count Crossmatch 08/23/18 08/24/18 08/24/18 Unknown 04:18 08:30 WBC 12.8 H RBC 2.24 L Hgb 7.0 L Hct 21.1 L RDW Plt Count Lymph % (Auto) Lymph # Seg Neutrophils % Seg Neuts % (Manual) 93.0 H Lymphocytes % (Manual) 6.0 L Nucleated RBC % Seg Neutrophils # Seg Neutrophils # Man 11.9 H Lymphocytes # (Manual) 0.8 L D-Dimer POC ABG pH POC ABG pCO2 POC ABG pO2 78 L VBG pH Sodium Potassium Chloride 115.7 H Carbon Dioxide 21 L BUN 64 H Creatinine 2.0 H Glucose 149 H POC Glucose Hemoglobin A1c Lactic Acid Calcium 7.5 L Phosphorus AST ALT Troponin T C-Reactive Protein Total Protein 4.8 L Albumin 2.0 L Triglycerides LDL Cholesterol Direct HDL Cholesterol Urine WBC (Auto) Salicylates Acetaminophen % CD3 Cells % CD19 Cells Absolute CD19 Count Crossmatch 08/24/18 08/24/18 08/24/18 08:30 17:44 18:28 WBC RBC Hgb Hct RDW Plt Count Lymph % (Auto) Lymph # Seg Neutrophils % Seg Neuts % (Manual) Lymphocytes % (Manual) Nucleated RBC % Seg Neutrophils # Seg Neutrophils # Man Lymphocytes # (Manual) D-Dimer POC ABG pH 7.474 H POC ABG pCO2 POC ABG pO2 61 L VBG pH Sodium Potassium Chloride 108.3 H Carbon Dioxide 20 L BUN 65 H Creatinine 2.0 H Glucose 167 H POC Glucose 164 H Hemoglobin A1c Lactic Acid Calcium 7.7 L Phosphorus AST ALT Troponin T C-Reactive Protein Total Protein 5.3 L Albumin 2.2 L Triglycerides LDL Cholesterol Direct HDL Cholesterol Urine WBC (Auto) Salicylates Acetaminophen % CD3 Cells % CD19 Cells Absolute CD19 Count Crossmatch 08/25/18 08/25/18 08/25/18 03:35 05:20 05:20 WBC RBC Hgb 6.7 L Hct 21.0 L RDW Plt Count Lymph % (Auto) Lymph # Seg Neutrophils % Seg Neuts % (Manual) Lymphocytes % (Manual) Nucleated RBC % Seg Neutrophils # Seg Neutrophils # Man Lymphocytes # (Manual) D-Dimer POC ABG pH POC ABG pCO2 POC ABG pO2 79 L VBG pH Sodium Potassium Chloride Carbon Dioxide 21 L BUN 71 H Creatinine 3.1 H D Glucose 171 H POC Glucose Hemoglobin A1c Lactic Acid Calcium 7.5 L Phosphorus AST ALT Troponin T C-Reactive Protein Total Protein Albumin Triglycerides LDL Cholesterol Direct HDL Cholesterol Urine WBC (Auto) Salicylates Acetaminophen % CD3 Cells % CD19 Cells Absolute CD19 Count Crossmatch 08/25/18 08/25/18 08/25/18 05:20 08:52 12:42 WBC RBC Hgb Hct RDW Plt Count Lymph % (Auto) Lymph # Seg Neutrophils % Seg Neuts % (Manual) Lymphocytes % (Manual) Nucleated RBC % Seg Neutrophils # Seg Neutrophils # Man Lymphocytes # (Manual) D-Dimer POC ABG pH POC ABG pCO2 POC ABG pO2 VBG pH Sodium Potassium Chloride Carbon Dioxide BUN Creatinine Glucose POC Glucose 166 H Hemoglobin A1c Lactic Acid Calcium Phosphorus AST ALT Troponin T C-Reactive Protein 5.00 H Total Protein Albumin Triglycerides LDL Cholesterol Direct HDL Cholesterol Urine WBC (Auto) Salicylates Acetaminophen % CD3 Cells % CD19 Cells Absolute CD19 Count Crossmatch See Detail 08/25/18 08/26/18 08/26/18 18:05 00:13 04:53 WBC RBC Hgb Hct RDW Plt Count Lymph % (Auto) Lymph # Seg Neutrophils % Seg Neuts % (Manual) Lymphocytes % (Manual) Nucleated RBC % Seg Neutrophils # Seg Neutrophils # Man Lymphocytes # (Manual) D-Dimer POC ABG pH POC ABG pCO2 30.9 L POC ABG pO2 70 L VBG pH Sodium Potassium Chloride Carbon Dioxide BUN Creatinine Glucose POC Glucose 121 H 164 H Hemoglobin A1c Lactic Acid Calcium Phosphorus AST ALT Troponin T C-Reactive Protein Total Protein Albumin Triglycerides LDL Cholesterol Direct HDL Cholesterol Urine WBC (Auto) Salicylates Acetaminophen % CD3 Cells % CD19 Cells Absolute CD19 Count Crossmatch 08/26/18 08/26/18 08/26/18 05:42 06:00 06:00 WBC RBC 2.62 L Hgb 7.7 L Hct 23.0 L RDW 22.0 H Plt Count Lymph % (Auto) 6.3 L Lymph # 0.7 L Seg Neutrophils % 88.1 H Seg Neuts % (Manual) Lymphocytes % (Manual) Nucleated RBC % Seg Neutrophils # 9.6 H Seg Neutrophils # Man Lymphocytes # (Manual) D-Dimer POC ABG pH POC ABG pCO2 POC ABG pO2 VBG pH Sodium Potassium Chloride Carbon Dioxide 21 L BUN 70 H Creatinine 3.3 H Glucose 146 H POC Glucose 149 H Hemoglobin A1c Lactic Acid Calcium 8.0 L Phosphorus AST ALT Troponin T C-Reactive Protein Total Protein Albumin Triglycerides LDL Cholesterol Direct HDL Cholesterol Urine WBC (Auto) Salicylates Acetaminophen % CD3 Cells % CD19 Cells Absolute CD19 Count Crossmatch 08/26/18 08/26/18 08/27/18 11:37 23:54 04:35 WBC RBC 2.50 L Hgb 7.6 L Hct 22.3 L RDW 21.8 H Plt Count Lymph % (Auto) 7.3 L Lymph # 0.7 L Seg Neutrophils % 85.6 H Seg Neuts % (Manual) Lymphocytes % (Manual) Nucleated RBC % Seg Neutrophils # 8.6 H Seg Neutrophils # Man Lymphocytes # (Manual) D-Dimer POC ABG pH POC ABG pCO2 POC ABG pO2 VBG pH Sodium Potassium Chloride Carbon Dioxide BUN Creatinine Glucose POC Glucose 183 H 150 H Hemoglobin A1c Lactic Acid Calcium Phosphorus AST ALT Troponin T C-Reactive Protein Total Protein Albumin Triglycerides LDL Cholesterol Direct HDL Cholesterol Urine WBC (Auto) Salicylates Acetaminophen % CD3 Cells % CD19 Cells Absolute CD19 Count Crossmatch 08/27/18 04:35 WBC RBC Hgb Hct RDW Plt Count Lymph % (Auto) Lymph # Seg Neutrophils % Seg Neuts % (Manual) Lymphocytes % (Manual) Nucleated RBC % Seg Neutrophils # Seg Neutrophils # Man Lymphocytes # (Manual) D-Dimer POC ABG pH POC ABG pCO2 POC ABG pO2 VBG pH Sodium Potassium Chloride Carbon Dioxide 19 L BUN 67 H Creatinine 2.9 H Glucose 155 H POC Glucose Hemoglobin A1c Lactic Acid Calcium Phosphorus 4.70 H AST ALT Troponin T C-Reactive Protein Total Protein Albumin Triglycerides LDL Cholesterol Direct HDL Cholesterol Urine WBC (Auto) Salicylates Acetaminophen % CD3 Cells % CD19 Cells Absolute CD19 Count Crossmatch Allied health notes reviewed: nursing
--- NOTE | 2018-08-27 11:48 | Progress Note ---
Assessment and Plan Assessment and plan: --Persistent fever; 24-hour MAXIMUM TEMPERATURE 101 Continue current antibiotics ID following, follow cultures --Anemia; hemoglobin today 6.7-7.7-7.6 received 1 unit PRBC , closely monitor,transfuse as needed --Acute hypoxic hypercapnic respiratory failure; intubated on ventilatory support nebulizers, IV antibiotics, supportive care wean as tolerated and extubate, pulmonary following --Sepsis; secondary to aspiration pneumonia, continue current antibiotics Follow cultures, ID following --Aspiration pneumonia; Continue antibiotics and antifungal per ID Follow-up chest x-ray; no improvement of pneumonia --Hypertension; continue current antihypertensives Added hydralazine 25mg 8 hours a day,PRN meds --Hypernatremia; free water flushes, improved Closely monitor electrolytes, trending down --Hypokalemia; replace with KCl, follow electrolytes --Severe malnutrition/hypoalbuminemia; Nutrition consults and supportive care --Acute kidney injury; probably secondary to ATN avoid nephrotoxins, Nephrology following ----Acute systolic congestive heart failure; Ejection fraction 25-30%, continue current management Cardiology following --Elevated Transaminases; possible congested liver Levels trending down, check acute hepatitis panel Consider GI evaluation if needed --DVT prophylaxis; Lovenox Consults and recommendations noted and appreciated Plan of care reviewed with the patient's and her nurse The high probability of a clinically significant, sudden or life threatening deterioration of the [respiratory, cardiology, ID, renal and metabolic] system(s) required my full and direct attention, intervention and personal management. The aggregate critical care time was [32] minutes. This time is in addition to time spent performing reported procedures but includes the following: [x] Data Review and interpretation [x] Patient assessment and monitoring of vital signs [x] Documentation [x] Medication orders and management History Interval history: Patient seen and examined medical records reviewed , patient's at the bedside patient remains intubated on ventilatory support Persistent fevers MAXIMUM TEMPERATURE last 24 hours 101 F patient is alert and awake, on weaning parameters Vitals noted Hospitalist Physical - Constitutional Vitals: Temp Pulse Resp BP Pulse Ox 101.1 F H 83 22 144/63 95 08/27/18 08:00 08/27/18 09:46 08/27/18 09:46 08/27/18 09:46 08/27/18 09:46 General appearance: Present: no acute distress, well-nourished, other (intubated on ventilatory support, sedated) - EENT Eyes: Present: PERRL, EOM intact - Neck Neck: Present: supple, normal ROM - Respiratory Respiratory effort: normal Respiratory: bilateral: diminished, rhonchi, negative: CTA, rales, wheezing - Cardiovascular Rhythm: regular Heart Sounds: Present: S1 & S2 Peripheral Pulses: within normal limits - Abdominal General gastrointestinal: soft, non-tender, non-distended, normal bowel sounds - Integumentary Integumentary: Present: clear, warm - Psychiatric Psychiatric: cooperative, other (intubated) - Neurologic Neurologic: other (intubated on vent) Results - Labs CBC & Chem 7: 08/27/18 04:35 08/27/18 04:35 Labs: Laboratory Last Values WBC 10.0 K/mm3 (4.5-11.0) 08/27/18 04:35 RBC 2.50 M/mm3 (3.65-5.03) L 08/27/18 04:35 Hgb 7.6 gm/dl (10.1-14.3) L 08/27/18 04:35 Hct 22.3 % (30.3-42.9) L 08/27/18 04:35 MCV 89 fl (79-97) 08/27/18 04:35 MCH 31 pg (28-32) 08/27/18 04:35 MCHC 34 % (30-34) 08/27/18 04:35 RDW 21.8 % (13.2-15.2) H 08/27/18 04:35 Plt Count 199 K/mm3 (140-440) 08/27/18 04:35 Lymph % (Auto) 7.3 % (13.4-35.0) L 08/27/18 04:35 [place] % (Auto) 7.0 % (0.0-7.3) 08/27/18 04:35 Eos % (Auto) 0.0 % (0.0-4.3) 08/27/18 04:35 Baso % (Auto) 0.1 % (0.0-1.8) 08/27/18 04:35 Lymph # 0.7 K/mm3 (1.2-5.4) L 08/27/18 04:35 [place] # 0.7 K/mm3 (0.0-0.8) 08/27/18 04:35 Eos # 0.0 K/mm3 (0.0-0.4) 08/27/18 04:35 Baso # 0.0 K/mm3 (0.0-0.1) 08/27/18 04:35 Add Manual Diff Complete 08/24/18 08:30 Total Counted 100 08/24/18 08:30 Seg Neutrophils % 85.6 % (40.0-70.0) H 08/27/18 04:35 Seg Neuts % (Manual) 93.0 % (40.0-70.0) H 08/24/18 08:30 Band Neutrophils % 0 % 08/24/18 08:30 Lymphocytes % (Manual) 6.0 % (13.4-35.0) L 08/24/18 08:30 Reactive Lymphs % (Man) 0 % 08/24/18 08:30 Monocytes % (Manual) 1.0 % (0.0-7.3) 08/24/18 08:30 Eosinophils % (Manual) 0 % (0.0-4.3) 08/24/18 08:30 Basophils % (Manual) 0 % (0.0-1.8) 08/24/18 08:30 Metamyelocytes % 0 % 08/24/18 08:30 Myelocytes % 0 % 08/24/18 08:30 Promyelocytes % 0 % 08/24/18 08:30 Blast Cells % 0 % 08/24/18 08:30 Nucleated RBC % Not Reportable 08/24/18 08:30 Seg Neutrophils # 8.6 K/mm3 (1.8-7.7) H 08/27/18 04:35 Seg Neutrophils # Man 11.9 K/mm3 (1.8-7.7) H 08/24/18 08:30 Band Neutrophils # 0.0 K/mm3 08/24/18 08:30 Abs Lymphs (Manual) 3262 cells/uL (850-3900) 08/19/18 14:32 Lymphocytes # (Manual) 0.8 K/mm3 (1.2-5.4) L 08/24/18 08:30 Abs React Lymphs (Man) 0.0 K/mm3 08/24/18 08:30 Monocytes # (Manual) 0.1 K/mm3 (0.0-0.8) 08/24/18 08:30 Eosinophils # (Manual) 0.0 K/mm3 (0.0-0.4) 08/24/18 08:30 Basophils # (Manual) 0.0 K/mm3 (0.0-0.1) 08/24/18 08:30 Metamyelocytes # 0.0 K/mm3 08/24/18 08:30 Myelocytes # 0.0 K/mm3 08/24/18 08:30 Promyelocytes # 0.0 K/mm3 08/24/18 08:30 Blast Cells # 0.0 K/mm3 08/24/18 08:30 WBC Morphology Not Reportable 08/24/18 08:30 Hypersegmented Neuts Not Reportable 08/24/18 08:30 Hyposegmented Neuts Not Reportable 08/24/18 08:30 Hypogranular Neuts Not Reportable 08/24/18 08:30 Smudge Cells Not Reportable 08/24/18 08:30 Toxic Granulation Not Reportable 08/24/18 08:30 Toxic Vacuolation Not Reportable 08/24/18 08:30 Dohle Bodies Not Reportable 08/24/18 08:30 Pelger-Huet Anomaly Not Reportable 08/24/18 08:30 Rosy Rods Not Reportable 08/24/18 08:30 Platelet Estimate Consistent w auto 08/24/18 08:30 Clumped Platelets Not Reportable 08/24/18 08:30 Plt Clumps, EDTA Not Reportable 08/24/18 08:30 Large Platelets Not Reportable 08/24/18 08:30 Giant Platelets Not Reportable 08/24/18 08:30 Platelet Satelliting Not Reportable 08/24/18 08:30 Plt Morphology Comment Not Reportable 08/24/18 08:30 RBC Morphology Not Reportable 08/24/18 08:30 Dimorphic RBCs Not Reportable 08/24/18 08:30 Polychromasia Not Reportable 08/24/18 08:30 Hypochromasia Not Reportable 08/24/18 08:30 Poikilocytosis Not Reportable 08/24/18 08:30 Anisocytosis 1+ 08/24/18 08:30 Microcytosis Not Reportable 08/24/18 08:30 Macrocytosis Not Reportable 08/24/18 08:30 Spherocytes Not Reportable 08/24/18 08:30 Pappenheimer Bodies Not Reportable 08/24/18 08:30 Sickle Cells Not Reportable 08/24/18 08:30 Target Cells Not Reportable 08/24/18 08:30 Tear Drop Cells Not Reportable 08/24/18 08:30 Ovalocytes Not Reportable 08/24/18 08:30 Helmet Cells Not Reportable 08/24/18 08:30 Hernandez-Landis Bodies Not Reportable 08/24/18 08:30 Lyons Rings Not Reportable 08/24/18 08:30 Bertha Cells Not Reportable 08/24/18 08:30 Bite Cells Not Reportable 08/24/18 08:30 Crenated Cell Not Reportable 08/24/18 08:30 Elliptocytes Not Reportable 08/24/18 08:30 Acanthocytes (Spur) Not Reportable 08/24/18 08:30 Rouleaux Not Reportable 08/24/18 08:30 Hemoglobin C Crystals Not Reportable 08/24/18 08:30 Schistocytes Not Reportable 08/24/18 08:30 Malaria parasites Not Reportable 08/24/18 08:30 Ceasar Bodies Not Reportable 08/24/18 08:30 Hem Pathologist Commnt No 08/24/18 08:30 D-Dimer 2768.33 ng/mlDDU (0-234) H 08/15/18 18:31 Heparin Anti-Xa, Unfract Negative (Negative) 08/22/18 15:29 POC ABG pH 7.403 (7.35-7.45) 08/26/18 04:53 POC ABG pCO2 30.9 (35-45) L 08/26/18 04:53 POC ABG pO2 70 (80-105) L 08/26/18 04:53 POC ABG HCO3 19.2 (22-26 mml/L) 08/26/18 04:53 POC ABG Total CO2 20 (23-27mmol/L) 08/26/18 04:53 POC ABG O2 Sat 94 08/26/18 04:53 POC ABG Base Excess -6 ((-2) - (+3)mmol/L) 08/26/18 04:53 VBG pH 7.187 (7.320-7.420) L* 08/15/18 18:19 FiO2 35 % 08/26/18 04:53 Sodium 140 mmol/L (137-145) 08/27/18 04:35 Potassium 3.8 mmol/L (3.6-5.0) 08/27/18 04:35 Chloride 106.3 mmol/L (98-107) 08/27/18 04:35 Carbon Dioxide 19 mmol/L (22-30) L 08/27/18 04:35 Anion Gap 19 mmol/L 08/27/18 04:35 BUN 67 mg/dL (7-17) H 08/27/18 04:35 Creatinine 2.9 mg/dL (0.7-1.2) H 08/27/18 04:35 Estimated GFR 16 ml/min 08/27/18 04:35 BUN/Creatinine Ratio 23 % 08/27/18 04:35 Glucose 155 mg/dL (65-100) H 08/27/18 04:35 POC Glucose 150 (70-105) H 08/26/18 23:54 Hemoglobin A1c 6.4 % (4-6) H 08/15/18 23:09 Lactic Acid 1.20 mmol/L (0.7-2.0) 08/22/18 15:29 Calcium 8.5 mg/dL (8.4-10.2) 08/27/18 04:35 Phosphorus 4.70 mg/dL (2.5-4.5) H 08/27/18 04:35 Magnesium 2.10 mg/dL (1.7-2.3) 08/27/18 04:35 Total Bilirubin 0.20 mg/dL (0.1-1.2) 08/24/18 08:30 AST 30 units/L (5-40) 08/24/18 08:30 ALT 11 units/L (7-56) 08/24/18 08:30 Alkaline Phosphatase 63 units/L (35-129) 08/24/18 08:30 Troponin T 0.317 ng/mL (0.00-0.029) H* D 08/18/18 13:39 C-Reactive Protein 5.00 mg/dL (0.00-1.30) H 08/25/18 05:20 Total Protein 5.3 g/dL (6.3-8.2) L 08/24/18 08:30 Albumin 2.2 g/dL (3.9-5) L 08/24/18 08:30 Albumin/Globulin Ratio 0.7 % 08/24/18 08:30 Triglycerides 197 mg/dL (2-149) H 08/22/18 06:45 Cholesterol 87 mg/dL (50-199) 08/15/18 18:31 LDL Cholesterol Direct 4 mg/dL (50-130) L 08/15/18 18:31 HDL Cholesterol 10 mg/dL (40-59) L 08/15/18 18:31 Cholesterol/HDL Ratio 8.70 % 08/15/18 18:31 Urine Color Rosemarie (Yellow) 08/15/18 19:15 Urine Turbidity Cloudy (Clear) 08/15/18 19:15 Urine pH 5.0 (5.0-7.0) 08/15/18 19:15 Ur Specific [place] 1.025 (1.003-1.030) 08/15/18 19:15 Urine Protein 30 mg/dl mg/dL (Negative) 08/15/18 19:15 Urine Glucose (UA) Neg mg/dL (Negative) 08/15/18 19:15 Urine Ketones Neg mg/dL (Negative) 08/15/18 19:15 Urine Blood Mod (Negative) 08/15/18 19:15 Urine Nitrite Neg (Negative) 08/15/18 19:15 Urine Bilirubin Neg (Negative) 08/15/18 19:15 Urine Urobilinogen 2.0 mg/dL (<2.0) 08/15/18 19:15 Ur Leukocyte Esterase Mod (Negative) 08/15/18 19:15 Urine WBC (Auto) 17.0 /HPF (0.0-6.0) H 08/15/18 19:15 Urine RBC (Auto) 5.0 /HPF (0.0-6.0) 08/15/18 19:15 Urine WBC Clumps 2+ /HPF 08/15/18 19:15 Amorphous Crystals 1+ 08/15/18 19:15 Hyaline Casts 54 /LPF 08/15/18 19:15 Granular Casts 14 /LPF 08/15/18 19:15 Urine Mucus Few /HPF 08/15/18 19:15 Salicylates < 0.3 mg/dL (2.8-20.0) L 08/15/18 19:14 Urine Opiates Screen Presumptive positive 08/15/18 19:15 Urine Methadone Screen Presumptive negative 08/15/18 19:15 Acetaminophen < 5.0 ug/mL (10.0-30.0) L 08/15/18 19:14 Ur Barbiturates Screen Presumptive negative 08/15/18 19:15 Ur Phencyclidine Scrn Presumptive negative 08/15/18 19:15 Ur Amphetamines Screen Presumptive negative 08/15/18 19:15 U Benzodiazepines Scrn Presumptive negative 08/15/18 19:15 Urine Cocaine Screen Presumptive negative 08/15/18 19:15 U Marijuana (THC) Screen Presumptive negative 08/15/18 19:15 Drugs of Abuse Note Disclamer 08/15/18 19:15 Heparin-induced Plt Ab Negative (Negative) 08/22/18 15:29 UF Heparin High Dose 0 % Release 08/22/18 15:29 NAZIA UFH Low Dose 0.1 0 % Release 08/22/18 15:29 NAZIA UFH Low Dose 0.5 0 % Release 08/22/18 15:29 Lymph Enumerat CD4/CD8 1.98 (0.86-5.00) 08/19/18 14:32 % CD3 Cells 44 % (57-85) L 08/19/18 14:32 Absolute CD3 Count 1451 cells/uL (840-3060) 08/19/18 14:32 % CD4 Cells 30 % (30-61) 08/19/18 14:32 Absolute CD4 Count 1004 cells/uL (490-1740) 08/19/18 14:32 % CD8 Cells 15 % (12-42) 08/19/18 14:32 Absolute CD8 Count 508 cells/uL (180-1170) 08/19/18 14:32 % CD19 Cells 41 % (6-29) H 08/19/18 14:32 Absolute CD19 Count 1290 cells/uL (110-660) H 08/19/18 14:32 C. difficile Toxin A&B Negative (Negative) 08/19/18 14:00 HIV 1&2 Antibody Rapid Non react (Non React) 08/18/18 13:39 HIV P24 Antigen Non react (Non React) 08/18/18 13:39 Blood Type O POSITIVE 08/25/18 08:52 Antibody Screen Negative 08/25/18 08:52 Crossmatch See Detail 08/25/18 08:52 Active Medications - Current Medications Current Medications: Generic Name Dose Route Start Last Admin Trade Name Freq PRN Reason Stop Dose Admin Acetaminophen 650 mg 08/15/18 22:12 08/24/18 21:30 Tylenol PO 650 mg Q4H PRN Administration Pain MILD(1-3)/Fever >100.5/MONDRAGON Acetaminophen 650 mg 08/16/18 17:01 08/16/18 17:11 Tylenol GA 650 mg Q4H PRN Administration Pain, Mild (1-3) Albuterol 2.5 mg 08/17/18 17:00 Proventil IH Q3HRT PRN Shortness Of Breath Albuterol/Ipratropium 1 ampul 08/20/18 14:00 08/27/18 08:46 Duoneb *Not For Prn Use* IH 1 ampul Q6HRT LAMAR Administration Lipase/Protease/Amylase 1 each 08/17/18 15:55 Pancreaze 10,500 Unit FEEDTUBE PRN PRN For Clogged Feeding Tube Arformoterol Tartrate 15 mcg 08/18/18 20:00 08/27/18 08:46 Brovana Nebu IH 15 mcg Q12HRT LAMAR Administration Budesonide 0.5 mg 08/18/18 20:00 08/27/18 08:46 Pulmicort IH 0.5 mg Q12HRT LAMAR Administration Carvedilol 3.125 mg 08/26/18 15:19 08/27/18 09:25 Coreg PO 3.125 mg BID LAMAR Administration Diphenhydramine HCl 25 mg 08/22/18 11:30 08/25/18 12:35 Benadryl IV 25 mg Q24H LAMAR Administration Duloxetine HCl 60 mg 08/16/18 10:00 08/26/18 09:20 Cymbalta PO 60 mg QDAY LAMAR Administration Famotidine 20 mg 08/21/18 10:00 08/27/18 09:21 Pepcid PO 20 mg DAILY LAMAR Administration Fentanyl 50 mcg 08/15/18 21:55 08/17/18 13:36 Sublimaze IV 50 mcg Q10MIN PRN Administration ANALGESIA Hydralazine HCl 10 mg 08/19/18 13:59 08/19/18 15:06 Apresoline IV 10 mg Q3H PRN Administration Hydrophilic Ointment 1 applic 08/15/18 21:55 Vaseline Lip Therapy TP Q2HR PRN Dry Lips Fentanyl Citrate 2,000 mcg in 100 mls @ 4.082 mls/hr 08/15/18 22:00 08/27/18 09:19 Fentanyl Drip Premix IV 3 mcg/kg/hr TITR LAMAR 12.247 mls/hr Administration Protocol 1 MCG/KG/HR Propofol 1,000 mg in 100 mls @ 2.449 mls/hr 08/15/18 21:15 08/26/18 08:30 Diprivan 10 Mg/Ml IV 0 mcg/kg/min TITR LAMAR 0 mls/hr Titration Protocol 5 MCG/KG/MIN Norepinephrine 4 mg in 250 mls @ 7.5 mls/hr 08/17/18 20:00 08/26/18 05:42 Levophed Drip 4 Mg/Ns 250 Ml IV 0 mcg/min TITR LAMAR 0 mls/hr Titration Protocol 2 MCG/MIN Cefazolin Sodium 2 gm/ Sodium 100 mls @ 100 mls/hr 08/22/18 12:00 08/27/18 09:20 Chloride IV 100 mls/hr Q12HR LAMAR Administration Sodium Chloride 1,000 mls @ 50 mls/hr 08/22/18 12:00 08/25/18 10:52 Nacl 0.9% 1000 Ml IV 50 mls/hr DIRECT LAMAR Administration Micafungin Sodium 100 mg/ 100 mls @ 100 mls/hr 08/26/18 11:00 08/27/18 09:20 Sodium Chloride IV 100 mls/hr QDAY LAMAR Administration Protocol Metoclopramide HCl 5 mg 08/15/18 22:50 Reglan IV Q6H PRN Nausea And Vomiting Midodrine 5 mg 08/26/18 15:20 08/27/18 09:21 Proamatine PO 5 mg TID LAMAR Administration Ondansetron HCl 4 mg 08/15/18 22:12 Zofran IV Q8H PRN Nausea And Vomiting Quetiapine Fumarate 200 mg 08/22/18 12:00 08/26/18 21:51 Seroquel PO 200 mg BID LAMAR Administration Simple Syrup 15 ml 08/17/18 15:55 Simple Syrup FEEDTUBE PRN PRN Hypoglycemia Simple Syrup 30 ml 08/17/18 15:55 Simple Syrup FEEDTUBE PRN PRN Hypoglycemia Sodium Bicarbonate 325 mg 08/17/18 15:55 Sodium Bicarbonate FEEDTUBE PRN PRN For Clogged Feeding Tube Sodium Chloride 10 ml 08/16/18 10:00 08/26/18 22:15 Sodium Chloride Flush Syringe 10 Ml IV 10 ml BID LAMAR Administration Sodium Chloride 10 ml 08/15/18 22:12 08/25/18 21:35 Sodium Chloride Flush Syringe 10 Ml IV 10 ml PRN PRN Administration LINE FLUSH Nutrition/Malnutrition Assess - Dietary Evaluation Nutrition/Malnutrition Findings: Nutrition Notes Start: 08/17/18 13:57 Freq: Status: Active Protocol: Document 08/24/18 10:51 CP (Rec: 08/24/18 10:59 CP [id number]) Co-Sign 08/24/18 10:51 LP Nutrition Notes Initial or Follow up Reassessment Current Diagnosis Acute Kidney Injury,COPD, Diabetes,Sepsis,Hypertension, Respiratory Failure, Hyperlipidemia Other Pertinent Diagnosis AMS, hypokalemia, NSTEMI, encephalopathy, pneu, hypernatermia, shock liver Current Diet Vital AF 1.2 at 60mL/hr Labs/Tests BUN 64 Cr 2 BG 149 Pertinent Medications Reviewed Height 5 ft 7 in Weight 95.3 kg [place] Body Weight (kg) 61.36 BMI 32.9 Subjective/Other Information Per nurse, TF is stable and Na is WNL. #1 Nutrition Diagnosis Inadequate oral intake Diagnosis Progress(for reassessment Continues documentation) Is patient on ventilator? Yes Is Patient Ambulatory and/or Out of Bed No REE-([facility]-confined to bed) 1824.132 Kcal/Kg value to use for calculation 16 Approximate Energy Requirements Using 1525 kcal/Kg Calculation Used for Recommendations [facility] Additional Notes Protein needs: (2g/kg IBW) 122g/day Fluid needs: 1ml/kcal Nutrition Intervention Change Diet Order: Continue current Nutrition Support: Vital AF 1.2 at 60mL/hr with 150mL flush q4h. Kcal 1,728 Protein (gm) 108 Fluid (mL) 1,168 Goal #1 Tolerate TF Goal #2 Continue to meet at least 75% of nutrient needs via TF Anticipated Discharge Needs: Unable to determine at this time Follow-Up By: 04/03/19 Additional Comments F/U: TF tolerance
[2018-08-27] MEDS ORDERED: D5W IV SCH (12:00)
[2018-08-27] MEDS ORDERED: ABELCET IV SCH (12:00)
--- NOTE | 2018-08-27 12:03 | Progress Note ---
Assessment and Plan Acute on CKD4 - Improving BUN/Cr, continue f/u on current Mx. Check Renal u/s Edema - F/u urine output, may need diuretics if necessary when Renal fxn settles Lytes - F/u labs Vitals - Caution with meds Resp Failure - Vent weaning per Pulm Subjective Date of service: 08/27/18 Principal diagnosis: Acute hypoxemic hypercapnic Resp failure; AE-COPD; Acute kidney injury Objective - Vital Signs Vital signs: Vital Signs - 12hr 08/27/18 08/27/18 08/27/18 00:00 00:16 00:30 Temperature Pulse Rate 93 H 77 77 Pulse Rate [ Anterior Bilateral Throughout] Respiratory 20 19 21 Rate Respiratory Rate [Anterior Bilateral Throughout] Blood Pressure 107/55 104/41 103/47 O2 Sat by Pulse 94 95 95 Oximetry 08/27/18 08/27/18 08/27/18 00:46 01:00 01:16 Temperature Pulse Rate 78 79 79 Pulse Rate [ Anterior Bilateral Throughout] Respiratory 21 22 24 Rate Respiratory Rate [Anterior Bilateral Throughout] Blood Pressure 103/47 106/42 106/42 O2 Sat by Pulse 93 93 93 Oximetry 08/27/18 08/27/18 08/27/18 01:30 01:46 02:00 Temperature Pulse Rate 77 77 77 Pulse Rate [ Anterior Bilateral Throughout] Respiratory 22 23 20 Rate Respiratory Rate [Anterior Bilateral Throughout] Blood Pressure 108/43 108/43 107/43 O2 Sat by Pulse 92 93 93 Oximetry 08/27/18 08/27/18 08/27/18 02:16 02:30 02:46 Temperature 100.3 F H Pulse Rate 74 75 75 Pulse Rate [ Anterior Bilateral Throughout] Respiratory 22 22 19 Rate Respiratory Rate [Anterior Bilateral Throughout] Blood Pressure 107/43 115/45 115/45 O2 Sat by Pulse 92 93 94 Oximetry 08/27/18 08/27/18 08/27/18 03:00 03:16 03:30 Temperature Pulse Rate 79 79 78 Pulse Rate [ Anterior Bilateral Throughout] Respiratory 21 24 21 Rate Respiratory Rate [Anterior Bilateral Throughout] Blood Pressure 115/45 123/48 O2 Sat by Pulse 94 93 93 Oximetry 08/27/18 08/27/18 08/27/18 03:46 04:00 04:16 Temperature Pulse Rate 85 93 H 93 H Pulse Rate [ Anterior Bilateral Throughout] Respiratory 10 L 17 21 Rate Respiratory Rate [Anterior Bilateral Throughout] Blood Pressure 114/42 103/67 119/59 O2 Sat by Pulse 93 96 91 Oximetry 08/27/18 08/27/18 08/27/18 04:30 04:46 05:00 Temperature Pulse Rate 96 H 99 H 96 H Pulse Rate [ Anterior Bilateral Throughout] Respiratory 15 19 21 Rate Respiratory Rate [Anterior Bilateral Throughout] Blood Pressure 119/59 103/67 103/67 O2 Sat by Pulse 91 91 93 Oximetry 08/27/18 08/27/18 08/27/18 05:16 05:30 05:46 Temperature Pulse Rate 95 H 93 H 92 H Pulse Rate [ Anterior Bilateral Throughout] Respiratory 20 26 H 30 H Rate Respiratory Rate [Anterior Bilateral Throughout] Blood Pressure 103/67 103/67 100/67 O2 Sat by Pulse 94 94 94 Oximetry 08/27/18 08/27/18 08/27/18 06:00 06:16 06:30 Temperature Pulse Rate 95 H 93 H 93 H Pulse Rate [ Anterior Bilateral Throughout] Respiratory 25 H 21 22 Rate Respiratory Rate [Anterior Bilateral Throughout] Blood Pressure 103/67 128/62 144/68 O2 Sat by Pulse 94 95 94 Oximetry 08/27/18 08/27/18 08/27/18 06:46 07:00 07:16 Temperature Pulse Rate 93 H 95 H 95 H Pulse Rate [ Anterior Bilateral Throughout] Respiratory 25 H 18 16 Rate Respiratory Rate [Anterior Bilateral Throughout] Blood Pressure 144/68 154/69 154/69 O2 Sat by Pulse 94 94 94 Oximetry 08/27/18 08/27/18 08/27/18 07:30 07:46 08:00 Temperature 101.1 F H Pulse Rate 93 H 94 H 93 H Pulse Rate [ Anterior Bilateral Throughout] Respiratory 22 17 22 Rate Respiratory Rate [Anterior Bilateral Throughout] Blood Pressure 154/69 144/71 152/70 O2 Sat by Pulse 95 95 95 Oximetry 08/27/18 08/27/18 08/27/18 08:16 08:30 08:46 Temperature Pulse Rate 93 H 94 H 91 H Pulse Rate [ Anterior Bilateral Throughout] Respiratory 21 20 20 Rate Respiratory Rate [Anterior Bilateral Throughout] Blood Pressure 152/70 152/70 156/63 O2 Sat by Pulse 95 96 96 Oximetry 08/27/18 08/27/18 08/27/18 08:47 09:00 09:10 Temperature Pulse Rate 93 H 90 Pulse Rate [ 94 H 920 H Anterior Bilateral Throughout] Respiratory 23 Rate Respiratory 19 22 Rate [Anterior Bilateral Throughout] Blood Pressure 153/63 156/63 O2 Sat by Pulse 95 99 Oximetry 08/27/18 08/27/18 08/27/18 09:16 09:19 09:25 Temperature Pulse Rate 89 88 92 H Pulse Rate [ Anterior Bilateral Throughout] Respiratory 23 Rate Respiratory Rate [Anterior Bilateral Throughout] Blood Pressure 156/63 144/63 144/63 O2 Sat by Pulse 99 94 Oximetry 08/27/18 08/27/18 09:30 09:46 Temperature Pulse Rate 92 H 83 Pulse Rate [ Anterior Bilateral Throughout] Respiratory 21 22 Rate Respiratory Rate [Anterior Bilateral Throughout] Blood Pressure 141/68 144/63 O2 Sat by Pulse 95 Oximetry - General Appearance General appearance: other (Awake & responsive) EENT: PERRL Respiratory: Present: Other (Air entry per Vent via ETT) Cardiology: other (Periph Edema) Gastrointestinal: other (Soft) - Lab 08/27/18 04:35 08/27/18 04:35 Most recent lab results Calcium 8.5 mg/dL (8.4-10.2) 08/27/18 04:35 Phosphorus 4.70 mg/dL (2.5-4.5) H 08/27/18 04:35 Magnesium 2.10 mg/dL (1.7-2.3) 08/27/18 04:35 Medications & Allergies - Medications Allergies/Adverse Reactions: Allergies No Known Allergies Allergy (Unverified 08/15/18 16:49) Home Medications: Home Medications Medication Instructions Recorded Confirmed Last Taken Type Carvedilol 6.25 mg PO BID 08/15/18 08/15/18 Unknown History DULoxetine 60 mg PO QDAY 08/15/18 08/15/18 Unknown History Gabapentin 600 mg PO Q6HR PRN 08/15/18 08/15/18 Unknown History Methylphenidate 5 mg PO TID 08/15/18 08/15/18 Unknown History Morphabond ER 60 mg PO Q12HR 08/15/18 08/15/18 Unknown History Pravastatin Sodium 10 mg PO QDAY 08/15/18 08/15/18 Unknown History Tizanidine HCl 4 mg PO Q12HR 08/15/18 08/15/18 Unknown History oxyCODONE /ACETAMINOPHEN 7.5 - 325 mg PO Q8HR 08/15/18 08/15/18 Unknown History Active Medications: Generic Name Dose Route Start Last Admin Trade Name Freq PRN Reason Stop Dose Admin Acetaminophen 650 mg 08/15/18 22:12 08/24/18 21:30 Tylenol PO 650 mg Q4H PRN Administration Pain MILD(1-3)/Fever >100.5/MONDRAGON Acetaminophen 650 mg 08/16/18 17:01 08/16/18 17:11 Tylenol SC 650 mg Q4H PRN Administration Pain, Mild (1-3) Albuterol 2.5 mg 08/17/18 17:00 Proventil IH Q3HRT PRN Shortness Of Breath Albuterol/Ipratropium 1 ampul 08/20/18 14:00 08/27/18 08:46 Duoneb *Not For Prn Use* IH 1 ampul Q6HRT LAMAR Administration Lipase/Protease/Amylase 1 each 08/17/18 15:55 Pancresam Elizabeth 10,500 Unit FEEDTUBE PRN PRN For Clogged Feeding Tube Arformoterol Tartrate 15 mcg 08/18/18 20:00 08/27/18 08:46 Brovana Nebu IH 15 mcg Q12HRT LAMAR Administration Budesonide 0.5 mg 08/18/18 20:00 08/27/18 08:46 Pulmicort IH 0.5 mg Q12HRT LAMAR Administration Carvedilol 3.125 mg 08/26/18 15:19 08/27/18 09:25 Coreg PO 3.125 mg BID LAMAR Administration Diphenhydramine HCl 25 mg 08/22/18 11:30 08/25/18 12:35 Benadryl IV 25 mg Q24H LAMAR Administration Duloxetine HCl 60 mg 08/16/18 10:00 08/26/18 09:20 Cymbalta PO 60 mg QDAY LAMAR Administration Famotidine 20 mg 08/21/18 10:00 08/27/18 09:21 Pepcid PO 20 mg DAILY LAMAR Administration Fentanyl 50 mcg 08/15/18 21:55 08/17/18 13:36 Sublimaze IV 50 mcg Q10MIN PRN Administration ANALGESIA Hydralazine HCl 10 mg 08/19/18 13:59 08/19/18 15:06 Apresoline IV 10 mg Q3H PRN Administration Hydrophilic Ointment 1 applic 08/15/18 21:55 Vaseline Lip Therapy TP Q2HR PRN Dry Lips Fentanyl Citrate 2,000 mcg in 100 mls @ 4.082 mls/hr 08/15/18 22:00 08/27/18 09:19 Fentanyl Drip Premix IV 3 mcg/kg/hr TITR LAMAR 12.247 mls/hr Administration Protocol 1 MCG/KG/HR Propofol 1,000 mg in 100 mls @ 2.449 mls/hr 08/15/18 21:15 08/26/18 08:30 Diprivan 10 Mg/Ml IV 0 mcg/kg/min TITR LAMAR 0 mls/hr Titration Protocol 5 MCG/KG/MIN Norepinephrine 4 mg in 250 mls @ 7.5 mls/hr 08/17/18 20:00 08/26/18 05:42 Levophed Drip 4 Mg/Ns 250 Ml IV 0 mcg/min TITR LAMAR 0 mls/hr Titration Protocol 2 MCG/MIN Cefazolin Sodium 2 gm/ Sodium 100 mls @ 100 mls/hr 08/22/18 12:00 08/27/18 09:20 Chloride IV 100 mls/hr Q12HR LAMAR Administration Sodium Chloride 1,000 mls @ 50 mls/hr 08/22/18 12:00 08/25/18 10:52 Nacl 0.9% 1000 Ml IV 50 mls/hr DIRECT LAMAR Administration Micafungin Sodium 100 mg/ 100 mls @ 100 mls/hr 08/26/18 11:00 08/27/18 09:20 Sodium Chloride IV 100 mls/hr QDAY LAMAR Administration Protocol Metoclopramide HCl 5 mg 08/15/18 22:50 Reglan IV Q6H PRN Nausea And Vomiting Midodrine 5 mg 08/26/18 15:20 08/27/18 09:21 Proamatine PO 5 mg TID LAMAR Administration Ondansetron HCl 4 mg 08/15/18 22:12 Zofran IV Q8H PRN Nausea And Vomiting Quetiapine Fumarate 200 mg 08/22/18 12:00 08/26/18 21:51 Seroquel PO 200 mg BID LAMAR Administration Simple Syrup 15 ml 08/17/18 15:55 Simple Syrup FEEDTUBE PRN PRN Hypoglycemia Simple Syrup 30 ml 08/17/18 15:55 Simple Syrup FEEDTUBE PRN PRN Hypoglycemia Sodium Bicarbonate 325 mg 08/17/18 15:55 Sodium Bicarbonate FEEDTUBE PRN PRN For Clogged Feeding Tube Sodium Chloride 10 ml 08/16/18 10:00 08/26/18 22:15 Sodium Chloride Flush Syringe 10 Ml IV 10 ml BID LAMAR Administration Sodium Chloride 10 ml 08/15/18 22:12 08/25/18 21:35 Sodium Chloride Flush Syringe 10 Ml IV 10 ml PRN PRN Administration LINE FLUSH
--- NOTE | 2018-08-27 13:12 | Progress Note ---
Assessment and Plan Cultures: 08/15/2018 blood culture: Camryn glabrata 1 of 4 08/15/2018 sputum culture: MSSA and Escherichia coli, wade susceptible 08/18/2018 blood culture: no growth 08/18/2018 urine culture: neg 08/22/2018 blood culture: no growth 08/25/2018 blood culture: no growth today A/P: 68-year-old female with COPD, arthritis, history of multiple spinal surgeries was brought to the emergency room on 08/15/2018 with altered mental status: 1) Sepsis with now ?septic shock: fever resolved, briefly on levophed on 08/25. Etio is unclear. Likely fungemia, which did not respond to 2 day-course of initial fluconazole and then 3 day-course micafungin. 08/22/2018 blood culture: no growth 2) Camryn glabrata fungemia: Etiology is unclear. Patient without any history of indwelling PICC line, TPN or immunocompromised status. reporting severe explosive diarrhea, N/V before admission after taken 4 days of amoxicillin for dental implant on 07/29/2018 and had a EGD / colonoscopy on 08/08/[address] [place] [address] Alcantara. I reviewed report - mild chronic gastritis, focal intestinal metaplasia, squamocolumnar mucosa with mild reflux-type changes, and tubular adenoma. -s/p fluconazole 800 mg loading dose then micafungin, s/p amphotericin D6 on 08/26 -serum Crypto negative. -08/15/2018 blood culture: Camryn glabrata -08/18/2018 blood culture: no growth today -CTA chest showed limited study due to respiratory motion artifact. No evidence of pulmonary embolism. Abnormal bilateral lung consolidation which may represent pulmonary edema or pneumonia. Mild cardiomegaly. Indeterminant mediastinal lymph nodes. -CT abdomen showed extensive bilateral lower lobe pulmonary infiltrates, rectal tube and Dodge catheter noted. NG tube at gastric antrum. Left hip prosthesis Extensive degenerative changes noted lumbar spine -TTE EF 25-30% no vegetations -HIV neg/ CD4 1004 -reviewed CT chest abd done 01/05/2019 showed cholecystectomy, mild fatty liver, postoperative changes of lumbar laminectomy with non specific fluid, 9 mm LLL pulmonary nodule which was compared to previous CT and was stable. -CRP 10-->5 3) Acute renal failure: On admission: Creatinine some better today. Nephrology following. 4) Transaminitis: Likely from shock liver. Better. 5) Bilateral pneumonia: DDx aspiration pneumonia v/s CAP. Causing acute respiratory failure. Chest x-ray shows reticular nodular infiltrates, some of these appear to be chronic and would also present in 2010. CTA chest showed limited study due to respiratory motion artifact. No evidence of pulmonary embolism. Abnormal bilateral lung consolidation which may represent pulmonary edema or pneumonia. Mild cardiomegaly. Indeterminant mediastinal lymph nodes. -Sputum culture 08/15 MSSA and Escherichia coli, wade susceptible 6) Right maxillary sinusitis 7) Acute encephalopathy: Likely multifactorial. CT head unremarkable for acute intracranial process. currently alert follows commands 8) Recent diarrhea after antibiotics. C diff negative. Reviewed CT abdomen with Dr Stoddard and no evidence of diverticulitis, colitis or abscess 9) New onset cardiomyopathy, LVEF 25-30% this admission 10) H/O left hip prosthesis ? XR no effusion. CT no enhancement Recs: continue micafungin D2 - I reviewed Camryn glabrata susceptibilities and it is susceptible to micafungin at 0.015 Continue cefazolin IV renally adjusted to cover MSSA and Escherichia coli D6 of 7 noted fever today after micafungin IV for 24h, will monitor if fever continues will get blood cultures I asked micro to send Camryn glabrata isolate to the public health lab for confirmation as it could represent other resistant Camrny as Camryn auris which is very resistant to many antifungal drugs. f/u cortisol level and procal collected while she wea temporary on pressors. Rigth IJ was removed, now a PICC line f/u aspergillus antigen and 1,2 beta D glucan via - ordered monitor creatinine closely Dr Pradhan will be covering Wednesday Yasmin Alvarez MD Infectious Diseases [employer] [facility] [place] [facility] M [phone] O [phone] Subjective Date of service: 08/27/18 Principal diagnosis: Acute hypoxemic hypercapnic Resp failure; AE-COPD; Acute kidney injury Interval history: Remains intubated fiO2 35%, p 8, alert, following commands, no pressors today, tmax 101.1, at bedside. ROS: unable to obtain Objective - Exam Narrative Exam: Constitutional: alert open eyes, intubated fiO2 35%, p8 Head, Ears, Nose: Normocephalic, atraumatic. External ears, nose normal Eyes: Conjunctivae/corneas clear. No icterus. No ptosis. Neck: Supple, no meningeal signs Oral: +ETT Cardiovascular: irreg Respiratory: gonzalez rhonchi GI: Soft, non-tender; bowel sounds normal. No peritoneal signs Musculoskeletal: gonzalez arm edema Skin: No rash or abscess Hem/Lymphatic: No palpable cervical or supraclavicular nodes. No lymphangitis Psych: no agitation Neurological: alert follows commands Rectal tube with diarrhea - Constitutional Vitals: Vital Signs Temp Pulse Resp BP Pulse Ox 101.1 F H 79 22 130/58 95 08/27/18 08:00 08/27/18 12:11 08/27/18 09:46 08/27/18 12:11 08/27/18 12:11 Temperature -Last 24 Hours Temperature 101.1 F Temperature 100.3 F Temperature 99.9 F Temperature 100.1 F Temperature 100.1 F Temperature 98.8 F - Labs CBC & Chem 7: 08/27/18 04:35 08/27/18 04:35 Labs: Abnormal lab results 08/26/18 08/27/18 08/27/18 Range/Units 23:54 04:35 04:35 RBC 2.50 L (3.65-5.03) M/mm3 Hgb 7.6 L (10.1-14.3) gm/dl Hct 22.3 L (30.3-42.9) % RDW 21.8 H (13.2-15.2) % Lymph % (Auto) 7.3 L (13.4-35.0) % Lymph # 0.7 L (1.2-5.4) K/mm3 Seg Neutrophils % 85.6 H (40.0-70.0) % Seg Neutrophils # 8.6 H (1.8-7.7) K/mm3 POC ABG pCO2 (35-45) POC ABG pO2 (80-105) Carbon Dioxide 19 L (22-30) mmol/L BUN 67 H (7-17) mg/dL Creatinine 2.9 H (0.7-1.2) mg/dL Glucose 155 H (65-100) mg/dL POC Glucose 150 H (70-105) Phosphorus 4.70 H (2.5-4.5) mg/dL 08/27/18 Range/Units 12:17 RBC (3.65-5.03) M/mm3 Hgb (10.1-14.3) gm/dl Hct (30.3-42.9) % RDW (13.2-15.2) % Lymph % (Auto) (13.4-35.0) % Lymph # (1.2-5.4) K/mm3 Seg Neutrophils % (40.0-70.0) % Seg Neutrophils # (1.8-7.7) K/mm3 POC ABG pCO2 32.1 L (35-45) POC ABG pO2 68 L (80-105) Carbon Dioxide (22-30) mmol/L BUN (7-17) mg/dL Creatinine (0.7-1.2) mg/dL Glucose (65-100) mg/dL POC Glucose (70-105) Phosphorus (2.5-4.5) mg/dL
[2018-08-27] MEDS: BENADRYL IV SCH (13:25)
--- NOTE | 2018-08-27 14:48 | Progress Note ---
Assessment and Plan - Patient Problems (1) Acute respiratory failure Current Visit: Yes Status: Acute Plan to address problem: Supportive measures, medical therapy for underlying dilated cardiomyopathy. (2) Dilated cardiomyopathy Current Visit: Yes Status: Acute Plan to address problem: Supportive measures, medical therapy for underlying dilated cardiomyopathy. Subjective Date of service: 08/27/18 Principal diagnosis: Acute hypoxemic hypercapnic Resp failure; AE-COPD; Acute kidney injury Interval history: Patient is sedated on the vent. Objective Vital Signs Temp Pulse Pulse Resp Resp BP Pulse Ox 08/27/18 14:19 78 21 08/27/18 14:09 83 20 08/27/18 13:46 82 22 138/110 91 08/27/18 13:30 84 15 153/53 95 08/27/18 13:16 79 24 153/53 94 08/27/18 13:00 79 15 130/58 94 08/27/18 12:46 76 17 130/58 93 08/27/18 12:30 79 15 137/52 94 08/27/18 12:16 77 18 137/52 96 08/27/18 12:11 79 130/58 95 08/27/18 12:00 98.7 F 75 21 138/93 95 08/27/18 11:46 79 16 138/93 96 08/27/18 11:30 79 15 143/54 96 08/27/18 11:16 77 20 143/54 94 08/27/18 11:00 76 21 139/60 95 08/27/18 10:46 76 20 139/60 94 08/27/18 10:30 79 18 139/60 92 08/27/18 10:16 78 20 139/60 92 08/27/18 10:00 78 20 139/60 91 08/27/18 09:46 83 22 144/63 95 08/27/18 09:30 92 H 21 141/68 08/27/18 09:25 92 H 144/63 08/27/18 09:19 88 144/63 94 08/27/18 09:16 89 23 156/63 99 08/27/18 09:10 92 H 22 08/27/18 09:00 90 23 156/63 99 08/27/18 08:47 93 H 94 H 19 153/63 95 08/27/18 08:46 91 H 20 156/63 96 08/27/18 08:30 94 H 20 152/70 96 08/27/18 08:16 93 H 21 152/70 95 08/27/18 08:00 101.1 F H 93 H 22 152/70 95 08/27/18 07:46 94 H 17 144/71 95 08/27/18 07:30 93 H 22 154/69 95 08/27/18 07:16 95 H 16 154/69 94 08/27/18 07:00 95 H 18 154/69 94 08/27/18 06:46 93 H 25 H 144/68 94 08/27/18 06:30 93 H 22 144/68 94 08/27/18 06:16 93 H 21 128/62 95 08/27/18 06:00 95 H 25 H 103/67 94 08/27/18 05:46 92 H 30 H 100/67 94 08/27/18 05:30 93 H 26 H 103/67 94 08/27/18 05:16 95 H 20 103/67 94 08/27/18 05:00 96 H 21 103/67 93 08/27/18 04:46 99 H 19 103/67 91 08/27/18 04:30 96 H 15 119/59 91 08/27/18 04:16 93 H 21 119/59 91 08/27/18 04:00 93 H 17 103/67 96 08/27/18 03:46 85 10 L 114/42 93 08/27/18 03:30 78 21 123/48 93 08/27/18 03:16 79 24 93 08/27/18 03:00 79 21 115/45 94 08/27/18 02:46 100.3 F H 75 19 115/45 94 08/27/18 02:30 75 22 115/45 93 08/27/18 02:16 74 22 107/43 92 08/27/18 02:00 77 20 107/43 93 08/27/18 01:46 77 23 108/43 93 08/27/18 01:30 77 22 108/43 92 08/27/18 01:16 79 24 106/42 93 08/27/18 01:00 79 22 106/42 93 08/27/18 00:46 78 21 103/47 93 08/27/18 00:30 77 21 103/47 95 08/27/18 00:16 77 19 104/41 95 08/27/18 00:00 93 H 20 107/55 94 08/26/18 23:46 79 19 94/40 94 08/26/18 23:30 82 21 94/40 95 08/26/18 23:15 84 21 104/46 92 08/26/18 23:00 85 24 131/44 92 08/26/18 22:51 99.9 F H 08/26/18 22:48 86 20 131/44 92 08/26/18 22:46 87 23 131/44 92 08/26/18 22:30 85 25 H 131/49 93 08/26/18 22:16 82 22 131/49 94 08/26/18 22:00 81 20 131/49 94 08/26/18 21:46 79 26 H 142/44 94 08/26/18 21:30 82 24 142/44 95 08/26/18 21:16 82 18 146/39 94 08/26/18 21:00 80 25 H 146/39 94 08/26/18 20:46 80 24 140/47 95 08/26/18 20:30 80 12 140/47 95 08/26/18 20:16 77 20 128/43 95 08/26/18 20:00 100.1 F H 93 H 12 103/67 94 08/26/18 19:46 80 19 135/47 95 08/26/18 19:42 100.1 F H 08/26/18 19:30 80 24 135/47 93 08/26/18 19:16 78 20 116/59 96 08/26/18 19:00 75 25 H 116/59 98 08/26/18 18:46 75 19 129/50 98 08/26/18 18:30 76 17 129/42 98 08/26/18 18:16 76 22 129/50 99 08/26/18 18:00 75 22 129/50 99 08/26/18 17:46 72 20 106/45 98 08/26/18 17:30 73 21 120/48 100 08/26/18 17:16 76 18 102/36 08/26/18 17:00 76 23 106/45 08/26/18 16:46 74 18 116/46 08/26/18 16:36 80 14 102/36 08/26/18 16:16 102/36 95 08/26/18 16:10 74 72 16 102/36 93 08/26/18 16:00 98.8 F 73 75 19 19 102/36 96 08/26/18 15:46 74 14 102/42 95 08/26/18 15:30 72 22 102/42 94 08/26/18 15:16 73 22 97/42 94 08/26/18 15:00 70 20 97/42 95 - Physical Examination General: Other (intubated and sedated) HEENT: Positive: PERRL, Other (ET tube in place) Neck: Positive: neck supple, trachea midline Cardiac: Positive: Reg Rate and Rhythm Lungs: Positive: Decreased Breath Sounds Neuro: Positive: Weakness Abdomen: Positive: Soft, Active Bowel Sounds Skin: Positive: Clear Extremities: Absent: edema - Labs and Meds CBC 08/27/18 Range/Units 04:35 WBC 10.0 (4.5-11.0) K/mm3 RBC 2.50 L (3.65-5.03) M/mm3 Hgb 7.6 L (10.1-14.3) gm/dl Hct 22.3 L (30.3-42.9) % Plt Count 199 (140-440) K/mm3 Lymph # 0.7 L (1.2-5.4) K/mm3 Fallon # 0.7 (0.0-0.8) K/mm3 Eos # 0.0 (0.0-0.4) K/mm3 Baso # 0.0 (0.0-0.1) K/mm3 Comprehensive Metabolic Panel 08/27/18 Range/Units 04:35 Sodium 140 (137-145) mmol/L Potassium 3.8 (3.6-5.0) mmol/L Chloride 106.3 (98-107) mmol/L Carbon Dioxide 19 L (22-30) mmol/L BUN 67 H (7-17) mg/dL Creatinine 2.9 H (0.7-1.2) mg/dL Glucose 155 H (65-100) mg/dL Calcium 8.5 (8.4-10.2) mg/dL - Allied health notes Allied health notes reviewed: nursing
[2018-08-27] MEDS: SUBLIMAZE IV PRN (19:10)
--- NOTE | 2018-08-27 21:38 | Ultrasound Report ---
PROCEDURE: US RENAL BILAT TECHNIQUE: Real-time sonography in multiple planes of the kidneys, ureters and urinary bladder was p erformed with image documentation. HISTORY: CHANDANA COMPARISONS: None . FINDINGS: Limited study due to patient body habitus. Patient is on respirator. Bilateral kidneys are suboptimal ly visualized. RIGHT kidney: Normal echotexture. No focal renal mass, calculus, or hydronephrosis. Length: 11.7 x 6 .3 x 5.8 cm. LEFT kidney: Normal echotexture. Mild degree of hydronephrosis is noted. There is a simple cyst measu ring 3.5 x 2.6 cm in the mid pole.. Length: 13 x 8.1 x 6.9 cm. Bladder: Fully distended with normal appearing lou.. IMPRESSION: Limited study There is evidence of mild left-sided hydronephrosis. This may be secondary to overdistended urinary b ladder. However a left ureteral obstruction cannot be excluded.. This document is electronically signed by Tobin Cardenas MD., August 27 2018 09:36:44 PM ET
[2018-08-27] MEDS: SODIUM CHLORIDE FLUSH SYRINGE 10 ML IV SCH (22:02)
[2018-08-28] MEDS: DUONEB *Not for PRN Use IH SCH ×4 (01:47→19:09)
[2018-08-28] MEDS: fentaNYL DRIP Premix 2,000 MCG/100 ML BAG IV SCH ×3 (03:41→23:03)
[2018-08-28 06:01] LABS: Basophils # (Auto) 0.1 K/mm3 (0.0-0.1); Basophils % (Auto) 0.8 % (0.0-1.8); Hematocrit 21.8 % (30.3-42.9); Hemoglobin 7.4 gm/dl (10.1-14.3); Lymphocytes # (Auto) 0.7 K/mm3 (1.2-5.4); Lymphocytes % (Auto) 7.6 % (13.4-35.0); Mean Corpuscular HGB Conc 34 % (30-34); Mean Corpuscular Volume 90 fl (79-97); Monocytes # (Auto) 0.8 K/mm3 (0.0-0.8); Monocytes % (Auto) 8.7 % (0.0-7.3); Platelet Count 212 K/mm3 (140-440); Red Blood Count 2.43 M/mm3 (3.65-5.03); Red Cell Distribution Width 20.8 % (13.2-15.2)
[2018-08-28 06:17] LABS: Calcium 8.6 mg/dL (8.4-10.2)
[2018-08-28] MEDS: APRESOLINE IV PRN (06:46)
[2018-08-28] MEDS: PULMICORT IH SCH ×2 (07:31→19:09)
[2018-08-28] MEDS: BROVANA NEBU IH SCH ×2 (07:32→19:08)
[2018-08-28] MEDS: CYMBALTA PO SCH ×2 (07:53→11:25)
[2018-08-28] MEDS: SODIUM CHLORIDE FLUSH SYRINGE 10 ML IV SCH ×3 (07:54→22:00)
[2018-08-28] MEDS: PROAMATINE PO SCH ×3 (08:22→20:55)
[2018-08-28] MEDS: COREG PO SCH ×2 (09:26→21:00)
[2018-08-28] MEDS: PEPCID PO SCH (09:27)
[2018-08-28] MEDS: MYCAMINE 100 MG in NACL 0.9% 100 ML IV SCH (09:27)
[2018-08-28] MEDS: ceFAZolin 2 GM in NACL 0.9% 100 ML IV SCH ×2 (09:51→21:07)
--- NOTE | 2018-08-28 10:25 | Progress Note ---
Assessment and Plan CHANDANA - F/u improving BUN/Cr, Renal u/s Rt kidney 11.7cm, Lt 13cm with mild Lt [place] & fully distended bladder. Insert manrique cath & f/u urine output. May need eval Edema - F/u urine output, may need diuretics if necessary when Renal fxn settles Lytes - F/u labs Vitals - Caution with meds Resp Failure - Vent weaning per Pulm Subjective Date of service: 08/28/18 Principal diagnosis: Acute hypoxemic hypercapnic Resp failure; AE-COPD; Acute kidney injury Objective - Vital Signs Vital signs: Vital Signs - 12hr 08/27/18 08/27/18 08/27/18 22:30 22:46 23:00 Temperature Pulse Rate 81 71 65 Pulse Rate [ Anterior Bilateral Throughout] Pulse Rate [ Apical] Respiratory 23 20 15 Rate Respiratory Rate [Anterior Bilateral Throughout] Blood Pressure 142/58 101/44 101/44 O2 Sat by Pulse 94 95 98 Oximetry 08/27/18 08/27/18 08/27/18 23:16 23:30 23:33 Temperature 99.9 F H Pulse Rate 67 69 Pulse Rate [ Anterior Bilateral Throughout] Pulse Rate [ Apical] Respiratory 20 20 Rate Respiratory Rate [Anterior Bilateral Throughout] Blood Pressure 93/39 93/39 O2 Sat by Pulse 96 99 Oximetry 08/27/18 08/27/18 08/27/18 23:46 23:47 23:49 Temperature Pulse Rate 67 69 63 Pulse Rate [ Anterior Bilateral Throughout] Pulse Rate [ Apical] Respiratory 20 Rate Respiratory Rate [Anterior Bilateral Throughout] Blood Pressure 90/48 O2 Sat by Pulse 98 Oximetry 08/28/18 08/28/18 08/28/18 00:00 00:05 00:16 Temperature Pulse Rate 73 70 72 Pulse Rate [ Anterior Bilateral Throughout] Pulse Rate [ Apical] Respiratory 21 18 20 Rate Respiratory Rate [Anterior Bilateral Throughout] Blood Pressure 101/44 105/45 105/45 O2 Sat by Pulse 100 97 97 Oximetry 08/28/18 08/28/18 08/28/18 00:30 00:46 01:00 Temperature Pulse Rate 68 72 71 Pulse Rate [ Anterior Bilateral Throughout] Pulse Rate [ Apical] Respiratory 18 21 22 Rate Respiratory Rate [Anterior Bilateral Throughout] Blood Pressure 108/44 108/44 128/57 O2 Sat by Pulse 98 97 98 Oximetry 08/28/18 08/28/18 08/28/18 01:16 01:30 01:46 Temperature Pulse Rate 71 73 73 Pulse Rate [ Anterior Bilateral Throughout] Pulse Rate [ Apical] Respiratory 24 21 18 Rate Respiratory Rate [Anterior Bilateral Throughout] Blood Pressure 128/57 128/57 101/44 O2 Sat by Pulse 96 96 98 Oximetry 08/28/18 08/28/18 08/28/18 01:51 02:00 02:16 Temperature Pulse Rate 73 71 Pulse Rate [ 75 Anterior Bilateral Throughout] Pulse Rate [ Apical] Respiratory 19 21 Rate Respiratory 20 Rate [Anterior Bilateral Throughout] Blood Pressure 101/44 97/52 O2 Sat by Pulse 100 96 Oximetry 08/28/18 08/28/18 08/28/18 02:30 02:46 03:00 Temperature Pulse Rate 72 75 79 Pulse Rate [ Anterior Bilateral Throughout] Pulse Rate [ Apical] Respiratory 21 22 18 Rate Respiratory Rate [Anterior Bilateral Throughout] Blood Pressure 121/49 121/49 121/49 O2 Sat by Pulse 95 95 97 Oximetry 08/28/18 08/28/18 08/28/18 03:16 03:30 03:39 Temperature 99.8 F H Pulse Rate 85 86 Pulse Rate [ Anterior Bilateral Throughout] Pulse Rate [ Apical] Respiratory 17 17 Rate Respiratory Rate [Anterior Bilateral Throughout] Blood Pressure 136/58 136/58 O2 Sat by Pulse 95 95 Oximetry 08/28/18 08/28/18 08/28/18 03:46 04:00 04:16 Temperature Pulse Rate 87 88 87 Pulse Rate [ Anterior Bilateral Throughout] Pulse Rate [ Apical] Respiratory 18 21 22 Rate Respiratory Rate [Anterior Bilateral Throughout] Blood Pressure 168/28 168/28 174/81 O2 Sat by Pulse 94 96 96 Oximetry 08/28/18 08/28/18 08/28/18 04:30 04:46 05:00 Temperature Pulse Rate 88 89 88 Pulse Rate [ Anterior Bilateral Throughout] Pulse Rate [ Apical] Respiratory 19 17 19 Rate Respiratory Rate [Anterior Bilateral Throughout] Blood Pressure 174/81 167/69 167/69 O2 Sat by Pulse 96 96 96 Oximetry 08/28/18 08/28/18 08/28/18 05:16 05:30 05:46 Temperature Pulse Rate 87 88 90 Pulse Rate [ Anterior Bilateral Throughout] Pulse Rate [ Apical] Respiratory 20 20 24 Rate Respiratory Rate [Anterior Bilateral Throughout] Blood Pressure 167/69 167/69 163/73 O2 Sat by Pulse 96 96 96 Oximetry 08/28/18 08/28/18 08/28/18 06:00 06:16 06:30 Temperature Pulse Rate 90 91 H 94 H Pulse Rate [ Anterior Bilateral Throughout] Pulse Rate [ Apical] Respiratory 19 19 21 Rate Respiratory Rate [Anterior Bilateral Throughout] Blood Pressure 163/73 163/73 163/73 O2 Sat by Pulse 96 97 97 Oximetry 08/28/18 08/28/18 08/28/18 06:46 07:00 07:16 Temperature Pulse Rate 91 H 73 95 H Pulse Rate [ Anterior Bilateral Throughout] Pulse Rate [ Apical] Respiratory 27 H 26 H 34 H Rate Respiratory Rate [Anterior Bilateral Throughout] Blood Pressure 173/72 173/72 188/76 O2 Sat by Pulse 97 95 93 Oximetry 08/28/18 08/28/18 08/28/18 07:30 07:32 07:46 Temperature Pulse Rate 80 110 H 89 Pulse Rate [ Anterior Bilateral Throughout] Pulse Rate [ Apical] Respiratory 34 H 39 H Rate Respiratory Rate [Anterior Bilateral Throughout] Blood Pressure 188/76 147/66 161/79 O2 Sat by Pulse 94 95 95 Oximetry 08/28/18 08/28/18 08/28/18 08:00 08:15 08:30 Temperature 98.9 F Pulse Rate 97 H 85 108 H Pulse Rate [ Anterior Bilateral Throughout] Pulse Rate [ 104 H Apical] Respiratory 30 H 38 H 37 H Rate Respiratory Rate [Anterior Bilateral Throughout] Blood Pressure 161/79 151/69 163/73 O2 Sat by Pulse 95 93 94 Oximetry 08/28/18 08/28/18 08/28/18 08:46 09:00 09:16 Temperature Pulse Rate 107 H 105 H 107 H Pulse Rate [ Anterior Bilateral Throughout] Pulse Rate [ Apical] Respiratory 38 H 34 H 39 H Rate Respiratory Rate [Anterior Bilateral Throughout] Blood Pressure 151/69 147/66 147/66 O2 Sat by Pulse 95 94 95 Oximetry 08/28/18 08/28/18 08/28/18 09:26 09:30 09:46 Temperature Pulse Rate 107 H 107 H 104 H Pulse Rate [ Anterior Bilateral Throughout] Pulse Rate [ Apical] Respiratory 36 H 38 H Rate Respiratory Rate [Anterior Bilateral Throughout] Blood Pressure 144/60 147/66 144/60 O2 Sat by Pulse 96 95 Oximetry 08/28/18 08/28/18 10:00 10:16 Temperature Pulse Rate 91 H 82 Pulse Rate [ Anterior Bilateral Throughout] Pulse Rate [ Apical] Respiratory 30 H 24 Rate Respiratory Rate [Anterior Bilateral Throughout] Blood Pressure 144/60 89/40 O2 Sat by Pulse 94 95 Oximetry - General Appearance General appearance: sedated on ventilator, intubated, other (Arousable) Respiratory: Present: Other (Air entry per vent) Cardiology: regular, S1S2 Gastrointestinal: other (soft) - Lab 08/28/18 05:20 08/28/18 05:20 Most recent lab results Calcium 8.6 mg/dL (8.4-10.2) 08/28/18 05:20 Phosphorus 3.90 mg/dL (2.5-4.5) 08/28/18 05:20 Magnesium 2.00 mg/dL (1.7-2.3) 08/28/18 05:20 Medications & Allergies - Medications Allergies/Adverse Reactions: Allergies No Known Allergies Allergy (Unverified 08/15/18 16:49) Home Medications: Home Medications Medication Instructions Recorded Confirmed Last Taken Type Carvedilol 6.25 mg PO BID 08/15/18 08/15/18 Unknown History DULoxetine 60 mg PO QDAY 08/15/18 08/15/18 Unknown History Gabapentin 600 mg PO Q6HR PRN 08/15/18 08/15/18 Unknown History Methylphenidate 5 mg PO TID 08/15/18 08/15/18 Unknown History Morphabond ER 60 mg PO Q12HR 08/15/18 08/15/18 Unknown History Pravastatin Sodium 10 mg PO QDAY 08/15/18 08/15/18 Unknown History Tizanidine HCl 4 mg PO Q12HR 08/15/18 08/15/18 Unknown History oxyCODONE /ACETAMINOPHEN 7.5 - 325 mg PO Q8HR 08/15/18 08/15/18 Unknown History Active Medications: Generic Name Dose Route Start Last Admin Trade Name Freq PRN Reason Stop Dose Admin Acetaminophen 650 mg 08/15/18 22:12 08/24/18 21:30 Tylenol PO 650 mg Q4H PRN Administration Pain MILD(1-3)/Fever >100.5/MONDRAGON Acetaminophen 650 mg 08/16/18 17:01 08/16/18 17:11 Tylenol [place] 650 mg Q4H PRN Administration Pain, Mild (1-3) Albuterol 2.5 mg 08/17/18 17:00 Proventil IH Q3HRT PRN Shortness Of Breath Albuterol/Ipratropium 1 ampul 08/20/18 14:00 08/28/18 07:31 Duoneb *Not For Prn Use* IH 1 ampul Q6HRT LAMAR Administration Lipase/Protease/Amylase 1 each 08/17/18 15:55 Pancresam Elizabeth 10,500 Unit FEEDTUBE PRN PRN For Clogged Feeding Tube Arformoterol Tartrate 15 mcg 08/18/18 20:00 08/28/18 07:32 Brovana Nebu IH 15 mcg Q12HRT LAMAR Administration Budesonide 0.5 mg 08/18/18 20:00 08/28/18 07:31 Pulmicort IH 0.5 mg Q12HRT LAMAR Administration Carvedilol 3.125 mg 08/26/18 15:19 08/28/18 09:26 Coreg PO 3.125 mg BID LAMAR Administration Diphenhydramine HCl 25 mg 08/22/18 11:30 08/27/18 13:25 Benadryl IV 25 mg Q24H LAMAR Administration Duloxetine HCl 60 mg 08/16/18 10:00 08/28/18 07:53 Cymbalta PO Not Given QDAY LAMAR Famotidine 20 mg 08/21/18 10:00 08/28/18 09:27 Pepcid PO 20 mg DAILY LAMAR Administration Fentanyl 50 mcg 08/15/18 21:55 08/27/18 19:10 Sublimaze IV 50 mcg Q10MIN PRN Administration ANALGESIA Hydralazine HCl 10 mg 08/19/18 13:59 08/28/18 06:46 Apresoline IV 10 mg Q3H PRN Administration Hydrophilic Ointment 1 applic 08/15/18 21:55 Vaseline Lip Therapy TP Q2HR PRN Dry Lips Fentanyl Citrate 2,000 mcg in 100 mls @ 4.082 mls/hr 08/15/18 22:00 08/28/18 08:00 Fentanyl Drip Premix IV 4 mcg/kg/hr TITR LAMAR 16.329 mls/hr Titration Protocol 1 MCG/KG/HR Propofol 1,000 mg in 100 mls @ 2.449 mls/hr 08/15/18 21:15 08/26/18 08:30 Diprivan 10 Mg/Ml IV 0 mcg/kg/min TITR LAMAR 0 mls/hr Titration Protocol 5 MCG/KG/MIN Norepinephrine 4 mg in 250 mls @ 7.5 mls/hr 08/17/18 20:00 08/26/18 05:42 Levophed Drip 4 Mg/Ns 250 Ml IV 0 mcg/min TITR LAMAR 0 mls/hr Titration Protocol 2 MCG/MIN Cefazolin Sodium 2 gm/ Sodium 100 mls @ 100 mls/hr 08/22/18 12:00 08/28/18 09:51 Chloride IV 100 mls/hr Q12HR LAMAR Administration Sodium Chloride 1,000 mls @ 50 mls/hr 08/22/18 12:00 08/25/18 10:52 Nacl 0.9% 1000 Ml IV 50 mls/hr DIRECT LAMAR Administration Micafungin Sodium 100 mg/ 100 mls @ 100 mls/hr 08/26/18 11:00 08/28/18 09:27 Sodium Chloride IV 100 mls/hr QDAY LAMAR Administration Protocol Metoclopramide HCl 5 mg 08/15/18 22:50 Reglan IV Q6H PRN Nausea And Vomiting Midodrine 5 mg 08/26/18 15:20 08/28/18 08:22 Proamatine PO Not Given TID LAMAR Ondansetron HCl 4 mg 08/15/18 22:12 Zofran IV Q8H PRN Nausea And Vomiting Quetiapine Fumarate 200 mg 08/22/18 12:00 08/28/18 09:27 Seroquel PO 200 mg BID LAMAR Administration Simple Syrup 15 ml 08/17/18 15:55 Simple Syrup FEEDTUBE PRN PRN Hypoglycemia Simple Syrup 30 ml 08/17/18 15:55 Simple Syrup FEEDTUBE PRN PRN Hypoglycemia Sodium Bicarbonate 325 mg 08/17/18 15:55 Sodium Bicarbonate FEEDTUBE PRN PRN For Clogged Feeding Tube Sodium Chloride 10 ml 08/16/18 10:00 08/28/18 09:51 Sodium Chloride Flush Syringe 10 Ml IV Not Given BID LAMAR Sodium Chloride 10 ml 08/15/18 22:12 08/25/18 21:35 Sodium Chloride Flush Syringe 10 Ml IV 10 ml PRN PRN Administration LINE FLUSH
[2018-08-28] MEDS ORDERED: NACL 0.9% 250ML 250 ML IV ONE (10:54)
[2018-08-28] MEDS: NACL 0.9% 1000 ML 1,000 ML IV SCH (11:22)
--- NOTE | 2018-08-28 14:16 | Progress Note ---
Assessment and Plan - Patient Problems (1) Acute respiratory failure Current Visit: Yes Status: Acute Plan to address problem: Supportive measures, medical therapy for underlying dilated cardiomyopathy. (2) Dilated cardiomyopathy Current Visit: Yes Status: Acute Plan to address problem: Supportive measures, medical therapy for underlying dilated cardiomyopathy. Subjective Date of service: 08/28/18 Principal diagnosis: Acute hypoxemic hypercapnic Resp failure; AE-COPD; Acute kidney injury Interval history: Patient is sedated, on the vent. Objective Vital Signs Temp Pulse Pulse Pulse Resp Resp BP 08/28/18 14:06 78 81 25 H 28 H 129/51 08/28/18 12:00 98.4 F 84 79 19 98/43 08/28/18 11:46 83 23 98/43 08/28/18 11:30 67 30 H 93/39 08/28/18 11:16 66 28 H 84/39 08/28/18 11:00 75 22 93/39 08/28/18 10:46 79 24 89/40 08/28/18 10:35 72 23 84/39 08/28/18 10:30 72 22 84/39 08/28/18 10:16 82 24 89/40 08/28/18 10:00 91 H 30 H 144/60 08/28/18 09:46 104 H 38 H 144/60 08/28/18 09:30 107 H 36 H 147/66 08/28/18 09:26 107 H 144/60 08/28/18 09:16 107 H 39 H 147/66 08/28/18 09:00 105 H 34 H 147/66 08/28/18 08:46 107 H 38 H 151/69 08/28/18 08:30 108 H 37 H 163/73 08/28/18 08:15 85 38 H 151/69 08/28/18 08:00 98.9 F 97 H 104 H 30 H 161/79 08/28/18 07:46 89 39 H 161/79 08/28/18 07:42 69 24 08/28/18 07:32 110 H 70 25 H 147/66 08/28/18 07:30 80 34 H 188/76 08/28/18 07:16 95 H 34 H 188/76 08/28/18 07:00 73 26 H 173/72 08/28/18 06:46 91 H 27 H 173/72 08/28/18 06:30 94 H 21 163/73 08/28/18 06:16 91 H 19 163/73 08/28/18 06:00 90 19 163/73 08/28/18 05:46 90 24 163/73 08/28/18 05:30 88 20 167/69 08/28/18 05:16 87 20 167/69 08/28/18 05:00 88 19 167/69 08/28/18 04:46 89 17 167/69 08/28/18 04:30 88 19 174/81 08/28/18 04:16 87 22 174/81 08/28/18 04:00 88 21 168/28 08/28/18 03:46 87 18 168/28 08/28/18 03:39 99.8 F H 08/28/18 03:30 86 17 136/58 08/28/18 03:16 85 17 136/58 08/28/18 03:00 79 18 121/49 08/28/18 02:46 75 22 121/49 08/28/18 02:30 72 21 121/49 08/28/18 02:16 71 21 97/52 08/28/18 02:00 73 19 101/44 08/28/18 01:51 75 20 08/28/18 01:46 73 18 101/44 08/28/18 01:30 73 21 128/57 08/28/18 01:16 71 24 128/57 08/28/18 01:00 71 22 128/57 08/28/18 00:46 72 21 108/44 08/28/18 00:30 68 18 108/44 08/28/18 00:16 72 20 105/45 08/28/18 00:05 70 18 105/45 08/28/18 00:00 73 21 101/44 08/27/18 23:49 63 08/27/18 23:47 69 08/27/18 23:46 67 20 90/48 08/27/18 23:33 99.9 F H 08/27/18 23:30 69 20 93/39 08/27/18 23:16 67 20 93/39 08/27/18 23:00 65 15 101/44 08/27/18 22:46 71 20 101/44 08/27/18 22:30 81 23 142/58 08/27/18 22:16 89 24 142/58 08/27/18 22:01 85 142/58 08/27/18 22:00 83 18 157/64 08/27/18 21:46 87 21 157/64 08/27/18 21:30 91 H 16 147/71 08/27/18 21:16 91 H 26 H 147/71 08/27/18 21:00 91 H 26 H 142/119 08/27/18 20:46 92 H 28 H 138/66 08/27/18 20:30 96 H 31 H 142/119 08/27/18 20:16 97 H 25 H 142/119 08/27/18 20:00 100 H 22 133/76 08/27/18 19:59 99.8 F H 08/27/18 19:46 97 H 29 H 127/73 08/27/18 19:30 94 H 27 H 133/76 08/27/18 19:29 94 H 28 H 08/27/18 19:19 100 H 133/76 08/27/18 19:16 89 26 H 133/76 08/27/18 19:00 96 H 21 129/78 08/27/18 18:46 96 H 25 H 129/78 08/27/18 18:30 93 H 19 138/70 08/27/18 18:16 92 H 16 138/70 08/27/18 18:00 88 15 138/52 08/27/18 17:46 86 18 138/52 08/27/18 17:30 80 23 132/45 08/27/18 17:16 82 23 132/45 08/27/18 17:00 79 20 126/54 08/27/18 16:56 75 116/51 08/27/18 16:46 79 23 126/54 08/27/18 16:30 78 24 116/51 08/27/18 16:16 77 23 126/54 08/27/18 16:00 81 23 129/53 08/27/18 15:46 77 23 129/53 08/27/18 15:30 76 24 144/59 08/27/18 15:16 81 26 H 129/53 08/27/18 15:00 71 20 103/45 08/27/18 14:46 77 21 103/45 08/27/18 14:30 80 20 103/45 08/27/18 14:19 78 21 08/27/18 14:16 81 19 115/51 Pulse Ox 08/28/18 14:06 94 08/28/18 12:00 96 08/28/18 11:46 97 08/28/18 11:30 98 08/28/18 11:16 98 08/28/18 11:00 97 08/28/18 10:46 96 08/28/18 10:35 96 08/28/18 10:30 96 08/28/18 10:16 95 08/28/18 10:00 94 08/28/18 09:46 95 08/28/18 09:30 96 08/28/18 09:26 08/28/18 09:16 95 08/28/18 09:00 94 08/28/18 08:46 95 08/28/18 08:30 94 08/28/18 08:15 93 08/28/18 08:00 95 08/28/18 07:46 95 08/28/18 07:42 08/28/18 07:32 95 08/28/18 07:30 94 08/28/18 07:16 93 08/28/18 07:00 95 08/28/18 06:46 97 08/28/18 06:30 97 08/28/18 06:16 97 08/28/18 06:00 96 08/28/18 05:46 96 08/28/18 05:30 96 08/28/18 05:16 96 08/28/18 05:00 96 08/28/18 04:46 96 08/28/18 04:30 96 08/28/18 04:16 96 08/28/18 04:00 96 08/28/18 03:46 94 08/28/18 03:39 08/28/18 03:30 95 08/28/18 03:16 95 08/28/18 03:00 97 08/28/18 02:46 95 08/28/18 02:30 95 08/28/18 02:16 96 08/28/18 02:00 100 08/28/18 01:51 08/28/18 01:46 98 08/28/18 01:30 96 08/28/18 01:16 96 08/28/18 01:00 98 08/28/18 00:46 97 08/28/18 00:30 98 08/28/18 00:16 97 08/28/18 00:05 97 08/28/18 00:00 100 08/27/18 23:49 08/27/18 23:47 08/27/18 23:46 98 08/27/18 23:33 08/27/18 23:30 99 08/27/18 23:16 96 08/27/18 23:00 98 08/27/18 22:46 95 08/27/18 22:30 94 08/27/18 22:16 93 08/27/18 22:01 08/27/18 22:00 96 08/27/18 21:46 95 08/27/18 21:30 95 08/27/18 21:16 95 08/27/18 21:00 94 08/27/18 20:46 93 08/27/18 20:30 94 08/27/18 20:16 94 08/27/18 20:00 95 08/27/18 19:59 08/27/18 19:46 100 08/27/18 19:30 100 08/27/18 19:29 08/27/18 19:19 100 08/27/18 19:16 97 08/27/18 19:00 93 08/27/18 18:46 93 08/27/18 18:30 93 08/27/18 18:16 92 08/27/18 18:00 92 08/27/18 17:46 93 08/27/18 17:30 92 08/27/18 17:16 93 08/27/18 17:00 93 08/27/18 16:56 94 08/27/18 16:46 93 08/27/18 16:30 95 08/27/18 16:16 94 08/27/18 16:00 93 08/27/18 15:46 95 08/27/18 15:30 97 08/27/18 15:16 95 08/27/18 15:00 97 08/27/18 14:46 94 08/27/18 14:30 98 08/27/18 14:19 08/27/18 14:16 98 - Physical Examination General: Other (intubated and sedated) HEENT: Positive: PERRL, Other (ET tube in place) Neck: Positive: neck supple, trachea midline Cardiac: Positive: Reg Rate and Rhythm Lungs: Positive: Decreased Breath Sounds Neuro: Positive: Weakness Abdomen: Positive: Soft, Active Bowel Sounds Skin: Positive: Clear Extremities: Absent: edema - Labs and Meds CBC 08/28/18 Range/Units 05:20 WBC 8.9 (4.5-11.0) K/mm3 RBC 2.43 L (3.65-5.03) M/mm3 Hgb 7.4 L (10.1-14.3) gm/dl Hct 21.8 L (30.3-42.9) % Plt Count 212 (140-440) K/mm3 Lymph # 0.7 L (1.2-5.4) K/mm3 [place] # 0.8 (0.0-0.8) K/mm3 Eos # 0.0 (0.0-0.4) K/mm3 Baso # 0.1 (0.0-0.1) K/mm3 Comprehensive Metabolic Panel 08/28/18 Range/Units 05:20 Sodium 140 (137-145) mmol/L Potassium 3.9 (3.6-5.0) mmol/L Chloride 107.8 H (98-107) mmol/L Carbon Dioxide 21 L (22-30) mmol/L BUN 55 H (7-17) mg/dL Creatinine 2.0 H (0.7-1.2) mg/dL Glucose 177 H (65-100) mg/dL Calcium 8.6 (8.4-10.2) mg/dL - Allied health notes Allied health notes reviewed: nursing
--- NOTE | 2018-08-28 14:29 | Progress Note ---
Assessment and Plan Assessment and plan: --Acute hypoxic hypercapnic respiratory failure; intubated on ventilatory support nebulizers, IV antibiotics, supportive care wean as tolerated and extubate, pulmonary following --Anemia; hemoglobin today 7.4 received 1 unit PRBC , monitor,transfuse as needed --Sepsis; secondary to aspiration pneumonia, --Aspiration pneumonia; Continue antibiotics and antifungal per ID Follow-up chest x-ray; no improvement of pneumonia --Hypertension; continue current antihypertensives --Hypernatremia; free water flushes, improved Closely monitor electrolytes, trending down --Hypokalemia; replace with KCl, follow electrolytes --Severe malnutrition/hypoalbuminemia; Nutrition consults and supportive care --Acute kidney injury; probably secondary to ATN avoid nephrotoxins, Nephrology following ----Acute systolic congestive heart failure; Ejection fraction 25-30%, continue current management Cardiology following --Elevated Transaminases; resolved --DVT prophylaxis; Lovenox Consults and recommendations noted and appreciated Plan of care reviewed with the patient's nurse The high probability of a clinically significant, sudden or life threatening deterioration of the [respiratory, cardiology, ID, renal and metabolic] system(s) required my full and direct attention, intervention and personal management. The aggregate critical care time was [31] minutes. This time is in addition to time spent performing reported procedures but includes the following: [x] Data Review and interpretation [x] Patient assessment and monitoring of vital signs [x] Documentation [x] Medication orders and management History Interval history: Patient seen and examined medical records reviewed Events Reported by Nursing Staff On weaning parameters Remains intubated on ventilator support Alert and awake responding to simple questions vital signs reviewed Hospitalist Physical - Constitutional Vitals: Temp Pulse Resp BP Pulse Ox 98.4 F 82 27 H 129/51 99 08/28/18 12:00 08/28/18 14:16 08/28/18 14:16 08/28/18 14:16 08/28/18 14:16 General appearance: Present: no acute distress, well-nourished, other (intubated on ventilatory support, sedated) - EENT Eyes: Present: PERRL, EOM intact - Neck Neck: Present: supple, normal ROM - Respiratory Respiratory effort: normal Respiratory: bilateral: diminished, rhonchi, negative: rales, wheezing - Cardiovascular Rhythm: regular Heart Sounds: Present: S1 & S2 - Extremities Extremities: no ischemia, No edema - Abdominal General gastrointestinal: soft, non-tender, non-distended, normal bowel sounds - Integumentary Integumentary: Present: clear, warm - Psychiatric Psychiatric: appropriate mood/affect, cooperative - Neurologic Neurologic: other (intubated) Results - Labs CBC & Chem 7: 08/28/18 05:20 08/28/18 05:20 Labs: Laboratory Last Values WBC 8.9 K/mm3 (4.5-11.0) 08/28/18 05:20 RBC 2.43 M/mm3 (3.65-5.03) L 08/28/18 05:20 Hgb 7.4 gm/dl (10.1-14.3) L 08/28/18 05:20 Hct 21.8 % (30.3-42.9) L 08/28/18 05:20 MCV 90 fl (79-97) 08/28/18 05:20 MCH 30 pg (28-32) 08/28/18 05:20 MCHC 34 % (30-34) 08/28/18 05:20 RDW 20.8 % (13.2-15.2) H 08/28/18 05:20 Plt Count 212 K/mm3 (140-440) 08/28/18 05:20 Lymph % (Auto) 7.6 % (13.4-35.0) L 08/28/18 05:20 [place] % (Auto) 8.7 % (0.0-7.3) H 08/28/18 05:20 Eos % (Auto) 0.0 % (0.0-4.3) 08/28/18 05:20 Baso % (Auto) 0.8 % (0.0-1.8) 08/28/18 05:20 Lymph # 0.7 K/mm3 (1.2-5.4) L 08/28/18 05:20 [place] # 0.8 K/mm3 (0.0-0.8) 08/28/18 05:20 Eos # 0.0 K/mm3 (0.0-0.4) 08/28/18 05:20 Baso # 0.1 K/mm3 (0.0-0.1) 08/28/18 05:20 Add Manual Diff Complete 08/24/18 08:30 Total Counted 100 08/24/18 08:30 Seg Neutrophils % 82.9 % (40.0-70.0) H 08/28/18 05:20 Seg Neuts % (Manual) 93.0 % (40.0-70.0) H 08/24/18 08:30 Band Neutrophils % 0 % 08/24/18 08:30 Lymphocytes % (Manual) 6.0 % (13.4-35.0) L 08/24/18 08:30 Reactive Lymphs % (Man) 0 % 08/24/18 08:30 Monocytes % (Manual) 1.0 % (0.0-7.3) 08/24/18 08:30 Eosinophils % (Manual) 0 % (0.0-4.3) 08/24/18 08:30 Basophils % (Manual) 0 % (0.0-1.8) 08/24/18 08:30 Metamyelocytes % 0 % 08/24/18 08:30 Myelocytes % 0 % 08/24/18 08:30 Promyelocytes % 0 % 08/24/18 08:30 Blast Cells % 0 % 08/24/18 08:30 Nucleated RBC % Not Reportable 08/24/18 08:30 Seg Neutrophils # 7.3 K/mm3 (1.8-7.7) 08/28/18 05:20 Seg Neutrophils # Man 11.9 K/mm3 (1.8-7.7) H 08/24/18 08:30 Band Neutrophils # 0.0 K/mm3 08/24/18 08:30 Abs Lymphs (Manual) 3262 cells/uL (850-3900) 08/19/18 14:32 Lymphocytes # (Manual) 0.8 K/mm3 (1.2-5.4) L 08/24/18 08:30 Abs React Lymphs (Man) 0.0 K/mm3 08/24/18 08:30 Monocytes # (Manual) 0.1 K/mm3 (0.0-0.8) 08/24/18 08:30 Eosinophils # (Manual) 0.0 K/mm3 (0.0-0.4) 08/24/18 08:30 Basophils # (Manual) 0.0 K/mm3 (0.0-0.1) 08/24/18 08:30 Metamyelocytes # 0.0 K/mm3 08/24/18 08:30 Myelocytes # 0.0 K/mm3 08/24/18 08:30 Promyelocytes # 0.0 K/mm3 08/24/18 08:30 Blast Cells # 0.0 K/mm3 08/24/18 08:30 WBC Morphology Not Reportable 08/24/18 08:30 Hypersegmented Neuts Not Reportable 08/24/18 08:30 Hyposegmented Neuts Not Reportable 08/24/18 08:30 Hypogranular Neuts Not Reportable 08/24/18 08:30 Smudge Cells Not Reportable 08/24/18 08:30 Toxic Granulation Not Reportable 08/24/18 08:30 Toxic Vacuolation Not Reportable 08/24/18 08:30 Dohle Bodies Not Reportable 08/24/18 08:30 Pelger-Huet Anomaly Not Reportable 08/24/18 08:30 Rosy Rods Not Reportable 08/24/18 08:30 Platelet Estimate Consistent w auto 08/24/18 08:30 Clumped Platelets Not Reportable 08/24/18 08:30 Plt Clumps, EDTA Not Reportable 08/24/18 08:30 Large Platelets Not Reportable 08/24/18 08:30 Giant Platelets Not Reportable 08/24/18 08:30 Platelet Satelliting Not Reportable 08/24/18 08:30 Plt Morphology Comment Not Reportable 08/24/18 08:30 RBC Morphology Not Reportable 08/24/18 08:30 Dimorphic RBCs Not Reportable 08/24/18 08:30 Polychromasia Not Reportable 08/24/18 08:30 Hypochromasia Not Reportable 08/24/18 08:30 Poikilocytosis Not Reportable 08/24/18 08:30 Anisocytosis 1+ 08/24/18 08:30 Microcytosis Not Reportable 08/24/18 08:30 Macrocytosis Not Reportable 08/24/18 08:30 Spherocytes Not Reportable 08/24/18 08:30 Pappenheimer Bodies Not Reportable 08/24/18 08:30 Sickle Cells Not Reportable 08/24/18 08:30 Target Cells Not Reportable 08/24/18 08:30 Tear Drop Cells Not Reportable 08/24/18 08:30 Ovalocytes Not Reportable 08/24/18 08:30 Helmet Cells Not Reportable 08/24/18 08:30 Hernandez-Canova Bodies Not Reportable 08/24/18 08:30 Neihart Rings Not Reportable 08/24/18 08:30 [place] Cells Not Reportable 08/24/18 08:30 Bite Cells Not Reportable 08/24/18 08:30 Crenated Cell Not Reportable 08/24/18 08:30 Elliptocytes Not Reportable 08/24/18 08:30 Acanthocytes (Spur) Not Reportable 08/24/18 08:30 Rouleaux Not Reportable 08/24/18 08:30 Hemoglobin C Crystals Not Reportable 08/24/18 08:30 Schistocytes Not Reportable 08/24/18 08:30 Malaria parasites Not Reportable 08/24/18 08:30 Ceasar Bodies Not Reportable 08/24/18 08:30 Hem Pathologist Commnt No 08/24/18 08:30 D-Dimer 2768.33 ng/mlDDU (0-234) H 08/15/18 18:31 Heparin Anti-Xa, Unfract Negative (Negative) 08/22/18 15:29 POC ABG pH 7.417 (7.35-7.45) 08/28/18 04:43 POC ABG pCO2 33.8 (35-45) L 08/28/18 04:43 POC ABG pO2 78 (80-105) L 08/28/18 04:43 POC ABG HCO3 21.8 (22-26 mml/L) 08/28/18 04:43 POC ABG Total CO2 23 (23-27mmol/L) 08/28/18 04:43 POC ABG O2 Sat 96 08/28/18 04:43 POC ABG Base Excess -3 ((-2) - (+3)mmol/L) 08/28/18 04:43 VBG pH 7.187 (7.320-7.420) L* 08/15/18 18:19 FiO2 35 % 08/28/18 04:43 Sodium 140 mmol/L (137-145) 08/28/18 05:20 Potassium 3.9 mmol/L (3.6-5.0) 08/28/18 05:20 Chloride 107.8 mmol/L (98-107) H 08/28/18 05:20 Carbon Dioxide 21 mmol/L (22-30) L 08/28/18 05:20 Anion Gap 15 mmol/L 08/28/18 05:20 BUN 55 mg/dL (7-17) H 08/28/18 05:20 Creatinine 2.0 mg/dL (0.7-1.2) H 08/28/18 05:20 Estimated GFR 25 ml/min 08/28/18 05:20 BUN/Creatinine Ratio 28 % 08/28/18 05:20 Glucose 177 mg/dL (65-100) H 08/28/18 05:20 POC Glucose 164 (70-105) H 08/28/18 12:18 Hemoglobin A1c 6.4 % (4-6) H 08/15/18 23:09 Lactic Acid 1.20 mmol/L (0.7-2.0) 08/22/18 15:29 Calcium 8.6 mg/dL (8.4-10.2) 08/28/18 05:20 Phosphorus 3.90 mg/dL (2.5-4.5) 08/28/18 05:20 Magnesium 2.00 mg/dL (1.7-2.3) 08/28/18 05:20 Total Bilirubin 0.20 mg/dL (0.1-1.2) 08/24/18 08:30 AST 30 units/L (5-40) 08/24/18 08:30 ALT 11 units/L (7-56) 08/24/18 08:30 Alkaline Phosphatase 63 units/L (35-129) 08/24/18 08:30 Troponin T 0.317 ng/mL (0.00-0.029) H* D 08/18/18 13:39 C-Reactive Protein 5.00 mg/dL (0.00-1.30) H 08/25/18 05:20 Total Protein 5.3 g/dL (6.3-8.2) L 08/24/18 08:30 Albumin 2.2 g/dL (3.9-5) L 08/24/18 08:30 Albumin/Globulin Ratio 0.7 % 08/24/18 08:30 Triglycerides 197 mg/dL (2-149) H 08/22/18 06:45 Cholesterol 87 mg/dL (50-199) 08/15/18 18:31 LDL Cholesterol Direct 4 mg/dL (50-130) L 08/15/18 18:31 HDL Cholesterol 10 mg/dL (40-59) L 08/15/18 18: Cholesterol/HDL Ratio 8.70 % 08/15/18 18:31 Urine Color Rosemarie (Yellow) 08/15/18 19:15 Urine Turbidity Cloudy (Clear) 08/15/18 19:15 Urine pH 5.0 (5.0-7.0) 08/15/18 19:15 Ur Specific [place] 1.025 (1.003-1.030) 08/15/18 19:15 Urine Protein 30 mg/dl mg/dL (Negative) 08/15/18 19:15 Urine Glucose (UA) Neg mg/dL (Negative) 08/15/18 19:15 Urine Ketones Neg mg/dL (Negative) 08/15/18 19:15 Urine Blood Mod (Negative) 08/15/18 19:15 Urine Nitrite Neg (Negative) 08/15/18 19:15 Urine Bilirubin Neg (Negative) 08/15/18 19:15 Urine Urobilinogen 2.0 mg/dL (<2.0) 08/15/18 19:15 Ur Leukocyte Esterase Mod (Negative) 08/15/18 19:15 Urine WBC (Auto) 17.0 /HPF (0.0-6.0) H 08/15/18 19:15 Urine RBC (Auto) 5.0 /HPF (0.0-6.0) 08/15/18 19:15 Urine WBC Clumps 2+ /HPF 08/15/18 19:15 Amorphous Crystals 1+ 08/15/18 19:15 Hyaline Casts 54 /LPF 08/15/18 19:15 Granular Casts 14 /LPF 08/15/18 19:15 Urine Mucus Few /HPF 08/15/18 19:15 Salicylates < 0.3 mg/dL (2.8-20.0) L 08/15/18 19:14 Urine Opiates Screen Presumptive positive 08/15/18 19:15 Urine Methadone Screen Presumptive negative 08/15/18 19:15 Acetaminophen < 5.0 ug/mL (10.0-30.0) L 08/15/18 19:14 Ur Barbiturates Screen Presumptive negative 08/15/18 19:15 Ur Phencyclidine Scrn Presumptive negative 08/15/18 19:15 Ur Amphetamines Screen Presumptive negative 08/15/18 19:15 U Benzodiazepines Scrn Presumptive negative 08/15/18 19:15 Urine Cocaine Screen Presumptive negative 08/15/18 19:15 U Marijuana (THC) Screen Presumptive negative 08/15/18 19:15 Drugs of Abuse Note Disclamer 08/15/18 19:15 Heparin-induced Plt Ab Negative (Negative) 08/22/18 15:29 UF Heparin High Dose 0 % Release 08/22/18 15:29 NAZIA UFH Low Dose 0.1 0 % Release 08/22/18 15:29 NAZIA UFH Low Dose 0.5 0 % Release 08/22/18 15:29 Lymph Enumerat CD4/CD8 1.98 (0.86-5.00) 08/19/18 14:32 % CD3 Cells 44 % (57-85) L 08/19/18 14:32 Absolute CD3 Count 1451 cells/uL (840-3060) 08/19/18 14:32 % CD4 Cells 30 % (30-61) 08/19/18 14:32 Absolute CD4 Count 1004 cells/uL (490-1740) 08/19/18 14:32 % CD8 Cells 15 % (12-42) 08/19/18 14:32 Absolute CD8 Count 508 cells/uL (180-1170) 08/19/18 14:32 % CD19 Cells 41 % (6-29) H 08/19/18 14:32 Absolute CD19 Count 1290 cells/uL (110-660) H 08/19/18 14:32 C. difficile Toxin A&B Negative (Negative) 08/19/18 14:00 HIV 1&2 Antibody Rapid Non react (Non React) 08/18/18 13:39 HIV P24 Antigen Non react (Non React) 08/18/18 13:39 Blood Type O POSITIVE 08/25/18 08:52 Antibody Screen Negative 08/25/18 08:52 Crossmatch See Detail 08/25/18 08:52 Active Medications - Current Medications Current Medications: Generic Name Dose Route Start Last Admin Trade Name Freq PRN Reason Stop Dose Admin Acetaminophen 650 mg 08/15/18 22:12 08/24/18 21:30 Tylenol PO 650 mg Q4H PRN Administration Pain MILD(1-3)/Fever >100.5/MONDRAGON Acetaminophen 650 mg 08/16/18 17:01 08/16/18 17:11 Tylenol [place] 650 mg Q4H PRN Administration Pain, Mild (1-3) Albuterol 2.5 mg 08/17/18 17:00 Proventil IH Q3HRT PRN Shortness Of Breath Albuterol/Ipratropium 1 ampul 08/20/18 14:00 08/28/18 14:06 Duoneb *Not For Prn Use* IH 1 ampul Q6HRT LAMAR Administration Lipase/Protease/Amylase 1 each 08/17/18 15:[address] 10,500 Unit FEEDTUBE PRN PRN For Clogged Feeding Tube Arformoterol Tartrate 15 mcg 08/18/18 20:00 08/28/18 07:32 Brovana Nebu IH 15 mcg Q12HRT LAMAR Administration Budesonide 0.5 mg 08/18/18 20:00 08/28/18 07:31 Pulmicort IH 0.5 mg Q12HRT LAMAR Administration Carvedilol 3.125 mg 08/26/18 15:19 08/28/18 09:26 Coreg PO 3.125 mg BID LAMAR Administration Diphenhydramine HCl 25 mg 08/22/18 11:30 08/27/18 13:25 Benadryl IV 25 mg Q24H LAMAR Administration Duloxetine HCl 60 mg 08/16/18 10:00 08/28/18 11:25 Cymbalta PO Not Given QDAY LAMAR Famotidine 20 mg 08/21/18 10:00 08/28/18 09:27 Pepcid PO 20 mg DAILY LAMAR Administration Fentanyl 50 mcg 08/15/18 21:55 08/27/18 19:10 Sublimaze IV 50 mcg Q10MIN PRN Administration ANALGESIA Hydralazine HCl 10 mg 08/19/18 13:59 08/28/18 06:46 Apresoline IV 10 mg Q3H PRN Administration Hydrophilic Ointment 1 applic 08/15/18 21:55 Vaseline Lip Therapy TP Q2HR PRN Dry Lips Fentanyl Citrate 2,000 mcg in 100 mls @ 4.082 mls/hr 08/15/18 22:00 08/28/18 12:33 Fentanyl Drip Premix IV 2 mcg/kg/hr TITR LAMAR 8.165 mls/hr Titration Protocol 1 MCG/KG/HR Propofol 1,000 mg in 100 mls @ 2.449 mls/hr 08/15/18 21:15 08/26/18 08:30 Diprivan 10 Mg/Ml IV 0 mcg/kg/min TITR LAMAR 0 mls/hr Titration Protocol 5 MCG/KG/MIN Norepinephrine 4 mg in 250 mls @ 7.5 mls/hr 08/17/18 20:00 08/26/18 05:42 Levophed Drip 4 Mg/Ns 250 Ml IV 0 mcg/min TITR LAMAR 0 mls/hr Titration Protocol 2 MCG/MIN Cefazolin Sodium 2 gm/ Sodium 100 mls @ 100 mls/hr 08/22/18 12:00 08/28/18 09:51 Chloride IV 100 mls/hr Q12HR LAMAR Administration Sodium Chloride 1,000 mls @ 50 mls/hr 08/22/18 12:00 08/28/18 11:22 Nacl 0.9% 1000 Ml IV 50 mls/hr DIRECT LAMAR Administration Micafungin Sodium 100 mg/ 100 mls @ 100 mls/hr 08/26/18 11:00 08/28/18 09:27 Sodium Chloride IV 100 mls/hr QDAY LAMAR Administration Protocol Metoclopramide HCl 5 mg 08/15/18 22:50 Reglan IV Q6H PRN Nausea And Vomiting Midodrine 5 mg 08/26/18 15:20 08/28/18 14:21 Proamatine PO 5 mg TID LAMAR Administration Ondansetron HCl 4 mg 08/15/18 22:12 Zofran IV Q8H PRN Nausea And Vomiting Quetiapine Fumarate 200 mg 08/22/18 12:00 08/28/18 09:27 Seroquel PO 200 mg BID LAMAR Administration Simple Syrup 15 ml 08/17/18 15:55 Simple Syrup FEEDTUBE PRN PRN Hypoglycemia Simple Syrup 30 ml 08/17/18 15:55 Simple Syrup FEEDTUBE PRN PRN Hypoglycemia Sodium Bicarbonate 325 mg 08/17/18 15:55 Sodium Bicarbonate FEEDTUBE PRN PRN For Clogged Feeding Tube Sodium Chloride 10 ml 08/16/18 10:00 08/28/18 09:51 Sodium Chloride Flush Syringe 10 Ml IV Not Given BID LAMAR Sodium Chloride 10 ml 08/15/18 22:12 08/25/18 21:35 Sodium Chloride Flush Syringe 10 Ml IV 10 ml PRN PRN Administration LINE FLUSH Nutrition/Malnutrition Assess - Dietary Evaluation Nutrition/Malnutrition Findings: Nutrition Notes Start: 08/17/18 13:57 Freq: Status: Active Protocol: Document 08/24/18 10:51 CP (Rec: 08/24/18 10:59 CP [id number]) Co-Sign 08/24/18 10:51 LP Nutrition Notes Initial or Follow up Reassessment Current Diagnosis Acute Kidney Injury,COPD, Diabetes,Sepsis,Hypertension, Respiratory Failure, Hyperlipidemia Other Pertinent Diagnosis AMS, hypokalemia, NSTEMI, encephalopathy, pneu, hypernatermia, shock liver Current Diet Vital AF 1.2 at 60mL/hr Labs/Tests BUN 64 Cr 2 BG 149 Pertinent Medications Reviewed Height 5 ft 7 in Weight 95.3 kg [place] Body Weight (kg) 61.36 BMI 32.9 Subjective/Other Information Per nurse, TF is stable and Na is WNL. #1 Nutrition Diagnosis Inadequate oral intake Diagnosis Progress(for reassessment Continues documentation) Is patient on ventilator? Yes Is Patient Ambulatory and/or Out of Bed No REE-([facility]-confined to bed) 1824.132 Kcal/Kg value to use for calculation 16 Approximate Energy Requirements Using 1525 kcal/Kg Calculation Used for Recommendations [facility] Additional Notes Protein needs: (2g/kg IBW) 122g/day Fluid needs: 1ml/kcal Nutrition Intervention Change Diet Order: Continue current Nutrition Support: Vital AF 1.2 at 60mL/hr with 150mL flush q4h. Kcal 1,728 Protein (gm) 108 Fluid (mL) 1,168 Goal #1 Tolerate TF Goal #2 Continue to meet at least 75% of nutrient needs via TF Anticipated Discharge Needs: Unable to determine at this time Follow-Up By: 08/31/18 Additional Comments F/U: TF tolerance
[2018-08-28] MEDS: BENADRYL IV SCH (14:32)
--- NOTE | 2018-08-28 16:38 | Progress Note ---
Assessment and Plan Acute hypoxic-hypercapnic respiratory failure on MVS Acute COPD exacerbation NSTEMI Acute encephalopathy (toxic-metabolic) Thrombocytopenia Hypokalemia Acute kidney injury h/o Chronic Narcotic Dependence Aspiration pneumonia/CAP Hypokalemia GNR in tracheal aspirate Hypernatremia (Prior CXR's suggest chronic/structural lung disease and etiology of fungemia unclear) - continue SBT at Psupp of 10 - ABG after 2 hours and address - continue daily SAT's & SBT's as tolerated - keep set rate at 12/min for now - tentative extubation next 24-48 hours if tolerates extended SBT on Psupp of </= 10 cm H2O but will reassess daily - repeat BC's still NGTD - continue accuchecks q6h and target glycemic control for BG 140 - 180 mg/dl acutely - azotemia improving (appreciate nephrology input) - continue seroquel at 200 mg bid - stopped lovenox and sent HIT assay re: acute thrombocytopenia (still pending) - continue amphotericin for fungemia - nephrology evaluation ongoing re: CHANDANA in setting of IV contrast and now requiring amphotericin - prn triglyceride levels re: propofol infusion - cardiology consulted for CHF - follow CD4 count (HIV serologies negative) - complete antiinfectives per ID rec's - continue brovana & pulmicort re: COPD - Continue to Wean supplemental oxygen to keep O2 sats 88-90% (restrictive Oxygen strategies acutely) - continue lung protective strategies - Daily ABGs/CXR for now - VAP bundle addressed - continue to avoid benzodiazepines, use high dose fentanyl for agitation and analgesia - Sedation target for RASS 0 to -1 - Stress ulcer prophylaxis - VTE prophylaxis - enteral Nutrition as tolerated - VAP bundle addressed - Free water flushes for hypernatremia - Continue bronchodilators with pulmonary hygiene per RT - Maintenance of sleep -wake cycle - Mobility protocol for pressure ulcer prophylaxis as tolerated by hemodynamics - Influenza and pneumonia vaccination per protocol ..care plan discussed at length with family at the bedside ... re-evaluate in am & prn PROGNOSIS :FAIR CONDITION: CRITICAL CODE STATUS: FULL CODE The high probability of a clinically significant, sudden or life-threatening deterioration of the [respiratory, neurology, renal] system(s) required my full and direct attention, intervention and personal management. The aggregate critical care time was [35] minutes without overlap. Time includes spent on; [x] Data Review and interpretation [x] Patient assessment and monitoring of vital signs [x] Documentation [x] Medication orders and management Subjective Date of service: 08/28/18 Principal diagnosis: Acute hypoxemic hypercapnic Resp failure; AE-COPD; Acute kidney injury Interval history: Patient is seen today for: Acute hypoxemic - hypercapnic respiratory failure on MVS; Acute COPD exacerbation; Acute encephalopathy (toxic-metabolic); Hypokalemia; Acute kidney injury Seen and examined at bedside; 24hour events reviewed; nursing and respiratory care staff consulted; no adverse overnight events reported to me; resting peacefully in bed; Psupp at 10 cmH2O and tolerating decently so far; denies a cute chest pains or palpitations; in room; no emesis or overt aspiration Objective Vital Signs - 12hr 08/28/18 08/28/18 08/28/18 04:46 05:00 05:16 Temperature Pulse Rate 89 88 87 Pulse Rate [ Anterior Bilateral Throughout] Pulse Rate [ Apical] Respiratory 17 19 20 Rate Respiratory Rate [Anterior Bilateral Throughout] Blood Pressure 167/69 167/69 167/69 O2 Sat by Pulse 96 96 96 Oximetry 08/28/18 08/28/18 08/28/18 05:30 05:46 06:00 Temperature Pulse Rate 88 90 90 Pulse Rate [ Anterior Bilateral Throughout] Pulse Rate [ Apical] Respiratory 20 24 19 Rate Respiratory Rate [Anterior Bilateral Throughout] Blood Pressure 167/69 163/73 163/73 O2 Sat by Pulse 96 96 96 Oximetry 08/28/18 08/28/18 08/28/18 06:16 06:30 06:46 Temperature Pulse Rate 91 H 94 H 91 H Pulse Rate [ Anterior Bilateral Throughout] Pulse Rate [ Apical] Respiratory 19 21 27 H Rate Respiratory Rate [Anterior Bilateral Throughout] Blood Pressure 163/73 163/73 173/72 O2 Sat by Pulse 97 97 97 Oximetry 08/28/18 08/28/18 08/28/18 07:00 07:16 07:30 Temperature Pulse Rate 73 95 H 80 Pulse Rate [ Anterior Bilateral Throughout] Pulse Rate [ Apical] Respiratory 26 H 34 H 34 H Rate Respiratory Rate [Anterior Bilateral Throughout] Blood Pressure 173/72 188/76 188/76 O2 Sat by Pulse 95 93 94 Oximetry 08/28/18 08/28/18 08/28/18 07:32 07:42 07:46 Temperature Pulse Rate 110 H 89 Pulse Rate [ 70 69 Anterior Bilateral Throughout] Pulse Rate [ Apical] Respiratory 39 H Rate Respiratory 25 H 24 Rate [Anterior Bilateral Throughout] Blood Pressure 147/66 161/79 O2 Sat by Pulse 95 95 Oximetry 08/28/18 08/28/18 08/28/18 08:00 08:15 08:30 Temperature 98.9 F Pulse Rate 97 H 85 108 H Pulse Rate [ Anterior Bilateral Throughout] Pulse Rate [ 104 H Apical] Respiratory 30 H 38 H 37 H Rate Respiratory Rate [Anterior Bilateral Throughout] Blood Pressure 161/79 151/69 163/73 O2 Sat by Pulse 95 93 94 Oximetry 08/28/18 08/28/18 08/28/18 08:46 09:00 09:16 Temperature Pulse Rate 107 H 105 H 107 H Pulse Rate [ Anterior Bilateral Throughout] Pulse Rate [ Apical] Respiratory 38 H 34 H 39 H Rate Respiratory Rate [Anterior Bilateral Throughout] Blood Pressure 151/69 147/66 147/66 O2 Sat by Pulse 95 94 95 Oximetry 08/28/18 08/28/18 08/28/18 09:26 09:30 09:46 Temperature Pulse Rate 107 H 107 H 104 H Pulse Rate [ Anterior Bilateral Throughout] Pulse Rate [ Apical] Respiratory 36 H 38 H Rate Respiratory Rate [Anterior Bilateral Throughout] Blood Pressure 144/60 147/66 144/60 O2 Sat by Pulse 96 95 Oximetry 08/28/18 08/28/18 08/28/18 10:00 10:16 10:30 Temperature Pulse Rate 91 H 82 72 Pulse Rate [ Anterior Bilateral Throughout] Pulse Rate [ Apical] Respiratory 30 H 24 22 Rate Respiratory Rate [Anterior Bilateral Throughout] Blood Pressure 144/60 89/40 84/39 O2 Sat by Pulse 94 95 96 Oximetry 08/28/18 08/28/18 08/28/18 10:35 10:46 11:00 Temperature Pulse Rate 72 79 75 Pulse Rate [ Anterior Bilateral Throughout] Pulse Rate [ Apical] Respiratory 23 24 22 Rate Respiratory Rate [Anterior Bilateral Throughout] Blood Pressure 84/39 89/40 93/39 O2 Sat by Pulse 96 96 97 Oximetry 08/28/18 08/28/18 08/28/18 11:16 11:30 11:46 Temperature Pulse Rate 66 67 83 Pulse Rate [ Anterior Bilateral Throughout] Pulse Rate [ Apical] Respiratory 28 H 30 H 23 Rate Respiratory Rate [Anterior Bilateral Throughout] Blood Pressure 84/39 93/39 98/43 O2 Sat by Pulse 98 98 97 Oximetry 08/28/18 08/28/18 08/28/18 12:00 12:16 12:30 Temperature 98.4 F Pulse Rate 84 70 79 Pulse Rate [ Anterior Bilateral Throughout] Pulse Rate [ 79 Apical] Respiratory 19 31 H 34 H Rate Respiratory Rate [Anterior Bilateral Throughout] Blood Pressure 98/43 133/70 143/58 O2 Sat by Pulse 96 95 95 Oximetry 08/28/18 08/28/18 08/28/18 12:46 13:00 13:16 Temperature Pulse Rate 84 81 82 Pulse Rate [ Anterior Bilateral Throughout] Pulse Rate [ Apical] Respiratory 33 H 31 H 31 H Rate Respiratory Rate [Anterior Bilateral Throughout] Blood Pressure 143/58 143/58 143/63 O2 Sat by Pulse 95 95 95 Oximetry 08/28/18 08/28/18 08/28/18 13:30 13:46 14:00 Temperature Pulse Rate 79 76 76 Pulse Rate [ Anterior Bilateral Throughout] Pulse Rate [ Apical] Respiratory 25 H 30 H 26 H Rate Respiratory Rate [Anterior Bilateral Throughout] Blood Pressure 143/63 137/59 137/59 O2 Sat by Pulse 95 95 95 Oximetry 08/28/18 08/28/18 08/28/18 14:06 14:16 14:30 Temperature Pulse Rate 78 82 76 Pulse Rate [ 81 Anterior Bilateral Throughout] Pulse Rate [ Apical] Respiratory 25 H 27 H 26 H Rate Respiratory 28 H Rate [Anterior Bilateral Throughout] Blood Pressure 129/51 129/51 148/66 O2 Sat by Pulse 94 99 100 Oximetry 08/28/18 08/28/18 08/28/18 14:46 15:00 15:16 Temperature Pulse Rate 77 84 77 Pulse Rate [ Anterior Bilateral Throughout] Pulse Rate [ Apical] Respiratory 26 H 17 29 H Rate Respiratory Rate [Anterior Bilateral Throughout] Blood Pressure 148/66 148/66 140/67 O2 Sat by Pulse 96 96 95 Oximetry 08/28/18 08/28/18 15:30 16:00 Temperature 98.4 F Pulse Rate 80 Pulse Rate [ Anterior Bilateral Throughout] Pulse Rate [ Apical] Respiratory 23 Rate Respiratory Rate [Anterior Bilateral Throughout] Blood Pressure 140/67 O2 Sat by Pulse 93 Oximetry Constitutional: appears uncomfortable, other (elderly looking CF, normocephalic and atraumatic) Eyes: non-icteric ENT: oropharynx moist, other (ETT 23 cm MARTHA) Neck: supple, no lymphadenopathy, no JVD, other (no thyromegaly) Effort: mildly labored Ascultation: Bilateral: diminished breath sounds, rales, rhonchi Percussion: Bilateral: not dull Cardiovascular: regular rate and rhythm Gastrointestinal: normoactive bowel sounds, soft, non-tender, non-distended Integumentary: normal Extremities: no cyanosis, no edema, no ischemia or petechiae Neurologic: non-focal exam (grossly), pupils equal and round, CN II-XII normal, motor strength normal and Psychiatric: other (unable to assess) CBC and BMP: 09/04/18 06:30 09/04/18 06:30 ABG, PT/INR, D-dimer: ABG POC ABG pH 7.417 (7.35-7.45) 08/28/18 04:43 POC ABG pCO2 33.8 (35-45) L 08/28/18 04:43 POC ABG pO2 78 (80-105) L 08/28/18 04:43 POC ABG HCO3 21.8 (22-26 mml/L) 08/28/18 04:43 POC ABG Total CO2 23 (23-27mmol/L) 08/28/18 04:43 POC ABG O2 Sat 96 08/28/18 04:43 PT/INR, D-dimer D-Dimer 2768.33 ng/mlDDU (0-234) H 08/15/18 18:31 Abnormal lab findings: Abnormal Labs 08/15/18 08/15/18 08/15/18 17:52 17:52 17:52 WBC 12.7 H RBC 3.25 L Hgb Hct RDW Plt Count Lymph % (Auto) [place] % (Auto) Lymph # Seg Neutrophils % Seg Neuts % (Manual) Lymphocytes % (Manual) 6.0 L Nucleated RBC % Seg Neutrophils # Seg Neutrophils # Man Lymphocytes # (Manual) 0.8 L D-Dimer POC ABG pH POC ABG pCO2 POC ABG pO2 VBG pH Sodium Potassium 3.4 L Chloride 94.6 L Carbon Dioxide 17 L BUN 67 H Creatinine 3.5 H Glucose 131 H POC Glucose Hemoglobin A1c Lactic Acid 5.20 H* Calcium 7.6 L Phosphorus AST 887 H ALT 316 H Troponin T C-Reactive Protein Total Protein Albumin 3.1 L Triglycerides LDL Cholesterol Direct HDL Cholesterol Urine WBC (Auto) Salicylates Acetaminophen % CD3 Cells % CD19 Cells Absolute CD19 Count Crossmatch 08/15/18 08/15/18 08/15/18 18:11 18:19 18:31 WBC RBC Hgb Hct RDW Plt Count Lymph % (Auto) [place] % (Auto) Lymph # Seg Neutrophils % Seg Neuts % (Manual) Lymphocytes % (Manual) Nucleated RBC % Seg Neutrophils # Seg Neutrophils # Man Lymphocytes # (Manual) D-Dimer 2768.33 H POC ABG pH 7.173 L POC ABG pCO2 47.8 H POC ABG pO2 177 H VBG pH 7.187 L* Sodium Potassium Chloride Carbon Dioxide BUN Creatinine Glucose POC Glucose Hemoglobin A1c Lactic Acid Calcium Phosphorus AST ALT Troponin T C-Reactive Protein Total Protein Albumin Triglycerides LDL Cholesterol Direct HDL Cholesterol Urine WBC (Auto) Salicylates Acetaminophen % CD3 Cells % CD19 Cells Absolute CD19 Count Crossmatch 08/15/18 08/15/18 08/15/18 18:31 19:14 19:14 WBC RBC Hgb Hct RDW Plt Count Lymph % (Auto) [place] % (Auto) Lymph # Seg Neutrophils % Seg Neuts % (Manual) Lymphocytes % (Manual) Nucleated RBC % Seg Neutrophils # Seg Neutrophils # Man Lymphocytes # (Manual) D-Dimer POC ABG pH POC ABG pCO2 POC ABG pO2 VBG pH Sodium Potassium Chloride Carbon Dioxide BUN Creatinine Glucose POC Glucose Hemoglobin A1c Lactic Acid 2.70 H* Calcium Phosphorus AST ALT Troponin T 0.454 H* C-Reactive Protein Total Protein Albumin Triglycerides 356 H LDL Cholesterol Direct 4 L HDL Cholesterol 10 L Urine WBC (Auto) Salicylates < 0.3 L Acetaminophen % CD3 Cells % CD19 Cells Absolute CD19 Count Crossmatch 08/15/18 08/15/18 08/15/18 19:14 19:15 23:09 WBC RBC Hgb Hct RDW Plt Count Lymph % (Auto) [place] % (Auto) Lymph # Seg Neutrophils % Seg Neuts % (Manual) Lymphocytes % (Manual) Nucleated RBC % Seg Neutrophils # Seg Neutrophils # Man Lymphocytes # (Manual) D-Dimer POC ABG pH POC ABG pCO2 POC ABG pO2 VBG pH Sodium Potassium Chloride Carbon Dioxide BUN Creatinine Glucose POC Glucose Hemoglobin A1c Lactic Acid 3.20 H* Calcium Phosphorus AST ALT Troponin T C-Reactive Protein Total Protein Albumin Triglycerides LDL Cholesterol Direct HDL Cholesterol Urine WBC (Auto) 17.0 H Salicylates Acetaminophen < 5.0 L % CD3 Cells % CD19 Cells Absolute CD19 Count Crossmatch 08/15/18 08/16/18 08/16/18 23:09 01:41 05:38 WBC RBC 3.07 L Hgb 9.8 L Hct 28.7 L RDW Plt Count Lymph % (Auto) [place] % (Auto) Lymph # Seg Neutrophils % Seg Neuts % (Manual) 84.0 H Lymphocytes % (Manual) 6.0 L Nucleated RBC % 4.0 H Seg Neutrophils # Seg Neutrophils # Man Lymphocytes # (Manual) 0.5 L D-Dimer POC ABG pH 7.323 L POC ABG pCO2 34.7 L POC ABG pO2 78 L VBG pH Sodium Potassium Chloride Carbon Dioxide BUN Creatinine Glucose POC Glucose Hemoglobin A1c 6.4 H Lactic Acid Calcium Phosphorus AST ALT Troponin T C-Reactive Protein Total Protein Albumin Triglycerides LDL Cholesterol Direct HDL Cholesterol Urine WBC (Auto) Salicylates Acetaminophen % CD3 Cells % CD19 Cells Absolute CD19 Count Crossmatch 08/16/18 08/16/18 08/17/18 05:38 22:43 03:42 WBC RBC Hgb Hct RDW Plt Count Lymph % (Auto) [place] % (Auto) Lymph # Seg Neutrophils % Seg Neuts % (Manual) Lymphocytes % (Manual) Nucleated RBC % Seg Neutrophils # Seg Neutrophils # Man Lymphocytes # (Manual) D-Dimer POC ABG pH POC ABG pCO2 POC ABG pO2 VBG pH Sodium Potassium 2.9 L* 3.1 L 2.9 L* Chloride 108.8 H 111.9 H Carbon Dioxide 17 L 19 L 21 L BUN 62 H 40 H 33 H Creatinine 2.0 H Glucose 139 H 145 H POC Glucose Hemoglobin A1c Lactic Acid Calcium 7.8 L 8.3 L Phosphorus 1.50 L AST 619 H ALT 353 H Troponin T C-Reactive Protein Total Protein 6.1 L Albumin 2.8 L Triglycerides LDL Cholesterol Direct HDL Cholesterol Urine WBC (Auto) Salicylates Acetaminophen % CD3 Cells % CD19 Cells Absolute CD19 Count Crossmatch 08/17/18 08/17/18 08/18/18 11:02 16:42 03:28 WBC RBC Hgb Hct RDW Plt Count Lymph % (Auto) [place] % (Auto) Lymph # Seg Neutrophils % Seg Neuts % (Manual) Lymphocytes % (Manual) Nucleated RBC % Seg Neutrophils # Seg Neutrophils # Man Lymphocytes # (Manual) D-Dimer POC ABG pH 7.483 H 7.499 H POC ABG pCO2 POC ABG pO2 VBG pH Sodium 147 H Potassium 3.2 L Chloride 115.8 H Carbon Dioxide BUN 23 H Creatinine Glucose 121 H POC Glucose Hemoglobin A1c Lactic Acid Calcium 8.1 L Phosphorus 2.30 L D AST ALT Troponin T C-Reactive Protein Total Protein Albumin Triglycerides LDL Cholesterol Direct HDL Cholesterol Urine WBC (Auto) Salicylates Acetaminophen % CD3 Cells % CD19 Cells Absolute CD19 Count Crossmatch 08/18/18 08/18/18 08/18/18 04:10 13:39 13:39 WBC RBC Hgb Hct RDW Plt Count Lymph % (Auto) [place] % (Auto) Lymph # Seg Neutrophils % Seg Neuts % (Manual) Lymphocytes % (Manual) Nucleated RBC % Seg Neutrophils # Seg Neutrophils # Man Lymphocytes # (Manual) D-Dimer POC ABG pH POC ABG pCO2 POC ABG pO2 VBG pH Sodium 147 H Potassium 3.3 L Chloride 111.9 H Carbon Dioxide BUN 21 H Creatinine Glucose 113 H POC Glucose Hemoglobin A1c Lactic Acid Calcium Phosphorus 1.50 L D AST ALT Troponin T 0.317 H* D C-Reactive Protein 10.70 H Total Protein Albumin Triglycerides LDL Cholesterol Direct HDL Cholesterol Urine WBC (Auto) Salicylates Acetaminophen % CD3 Cells % CD19 Cells Absolute CD19 Count Crossmatch 08/18/18 08/19/18 08/19/18 16:51 03:47 04:15 WBC RBC Hgb Hct RDW Plt Count Lymph % (Auto) [place] % (Auto) Lymph # Seg Neutrophils % Seg Neuts % (Manual) Lymphocytes % (Manual) Nucleated RBC % Seg Neutrophils # Seg Neutrophils # Man Lymphocytes # (Manual) D-Dimer POC ABG pH 7.454 H 7.482 H POC ABG pCO2 POC ABG pO2 65 L VBG pH Sodium 154 H Potassium 3.3 L Chloride 115.1 H Carbon Dioxide BUN 19 H Creatinine Glucose 117 H POC Glucose Hemoglobin A1c Lactic Acid Calcium 7.8 L Phosphorus AST ALT Troponin T C-Reactive Protein Total Protein Albumin Triglycerides LDL Cholesterol Direct HDL Cholesterol Urine WBC (Auto) Salicylates Acetaminophen % CD3 Cells % CD19 Cells Absolute CD19 Count Crossmatch 08/19/18 08/19/18 08/20/18 14:32 16:18 03:51 WBC RBC Hgb Hct RDW Plt Count Lymph % (Auto) [place] % (Auto) Lymph # Seg Neutrophils % Seg Neuts % (Manual) Lymphocytes % (Manual) Nucleated RBC % Seg Neutrophils # Seg Neutrophils # Man Lymphocytes # (Manual) D-Dimer POC ABG pH 7.483 H POC ABG pCO2 33.4 L POC ABG pO2 51 L 74 L VBG pH Sodium Potassium Chloride Carbon Dioxide BUN Creatinine Glucose POC Glucose Hemoglobin A1c Lactic Acid Calcium Phosphorus AST ALT Troponin T C-Reactive Protein Total Protein Albumin Triglycerides LDL Cholesterol Direct HDL Cholesterol Urine WBC (Auto) Salicylates Acetaminophen % CD3 Cells 44 L % CD19 Cells 41 H Absolute CD19 Count 1290 H Crossmatch 08/20/18 08/21/18 08/21/18 05:25 03:54 05:45 WBC 24.1 H RBC 2.83 L Hgb 8.8 L Hct 26.7 L RDW 15.7 H Plt Count 127 L Lymph % (Auto) [place] % (Auto) Lymph # Seg Neutrophils % Seg Neuts % (Manual) 94.0 H Lymphocytes % (Manual) 4.0 L Nucleated RBC % 1.0 H Seg Neutrophils # Seg Neutrophils # Man 22.7 H Lymphocytes # (Manual) 1.0 L D-Dimer POC ABG pH POC ABG pCO2 31.9 L POC ABG pO2 66 L VBG pH Sodium 146 H D Potassium Chloride 111.2 H Carbon Dioxide BUN 24 H Creatinine Glucose 141 H POC Glucose Hemoglobin A1c Lactic Acid Calcium 8.1 L Phosphorus AST 65 H ALT 104 H Troponin T C-Reactive Protein Total Protein 6.2 L Albumin 2.6 L Triglycerides LDL Cholesterol Direct HDL Cholesterol Urine WBC (Auto) Salicylates Acetaminophen % CD3 Cells % CD19 Cells Absolute CD19 Count Crossmatch 08/21/18 08/22/18 08/22/18 05:45 06:20 06:45 WBC RBC Hgb Hct RDW Plt Count Lymph % (Auto) [place] % (Auto) Lymph # Seg Neutrophils % Seg Neuts % (Manual) Lymphocytes % (Manual) Nucleated RBC % Seg Neutrophils # Seg Neutrophils # Man Lymphocytes # (Manual) D-Dimer POC ABG pH POC ABG pCO2 32.9 L POC ABG pO2 VBG pH Sodium Potassium 3.5 L Chloride 109.4 H 112.4 H Carbon Dioxide 21 L 20 L BUN 50 H 61 H Creatinine 2.0 H D 1.9 H Glucose 144 H 154 H POC Glucose Hemoglobin A1c Lactic Acid Calcium 7.6 L 7.8 L Phosphorus AST ALT Troponin T C-Reactive Protein Total Protein 5.3 L Albumin 2.1 L Triglycerides LDL Cholesterol Direct HDL Cholesterol Urine WBC (Auto) Salicylates Acetaminophen % CD3 Cells % CD19 Cells Absolute CD19 Count Crossmatch 08/22/18 08/22/18 08/22/18 06:45 15:29 18:40 WBC RBC Hgb Hct RDW Plt Count Lymph % (Auto) [place] % (Auto) Lymph # Seg Neutrophils % Seg Neuts % (Manual) Lymphocytes % (Manual) Nucleated RBC % Seg Neutrophils # Seg Neutrophils # Man Lymphocytes # (Manual) D-Dimer POC ABG pH POC ABG pCO2 POC ABG pO2 VBG pH Sodium Potassium Chloride Carbon Dioxide BUN Creatinine Glucose POC Glucose 169 H Hemoglobin A1c Lactic Acid Calcium Phosphorus AST ALT Troponin T C-Reactive Protein 4.70 H Total Protein Albumin Triglycerides 197 H LDL Cholesterol Direct HDL Cholesterol Urine WBC (Auto) Salicylates Acetaminophen % CD3 Cells % CD19 Cells Absolute CD19 Count Crossmatch 08/23/18 08/23/18 08/23/18 03:59 21:19 Unknown WBC 12.1 H RBC 2.29 L Hgb 7.1 L Hct 21.7 L RDW 15.7 H Plt Count 106 L Lymph % (Auto) [place] % (Auto) Lymph # Seg Neutrophils % Seg Neuts % (Manual) 92.0 H Lymphocytes % (Manual) 4.0 L Nucleated RBC % Seg Neutrophils # Seg Neutrophils # Man 11.1 H Lymphocytes # (Manual) 0.5 L D-Dimer POC ABG pH 7.306 L POC ABG pCO2 31.3 L POC ABG pO2 119 H 75 L VBG pH Sodium Potassium Chloride Carbon Dioxide BUN Creatinine Glucose POC Glucose Hemoglobin A1c Lactic Acid Calcium Phosphorus AST ALT Troponin T C-Reactive Protein Total Protein Albumin Triglycerides LDL Cholesterol Direct HDL Cholesterol Urine WBC (Auto) Salicylates Acetaminophen % CD3 Cells % CD19 Cells Absolute CD19 Count Crossmatch 08/23/18 08/24/18 08/24/18 Unknown 04:18 08:30 WBC 12.8 H RBC 2.24 L Hgb 7.0 L Hct 21.1 L RDW Plt Count Lymph % (Auto) [place] % (Auto) Lymph # Seg Neutrophils % Seg Neuts % (Manual) 93.0 H Lymphocytes % (Manual) 6.0 L Nucleated RBC % Seg Neutrophils # Seg Neutrophils # Man 11.9 H Lymphocytes # (Manual) 0.8 L D-Dimer POC ABG pH POC ABG pCO2 POC ABG pO2 78 L VBG pH Sodium Potassium Chloride 115.7 H Carbon Dioxide 21 L BUN 64 H Creatinine 2.0 H Glucose 149 H POC Glucose Hemoglobin A1c Lactic Acid Calcium 7.5 L Phosphorus AST ALT Troponin T C-Reactive Protein Total Protein 4.8 L Albumin 2.0 L Triglycerides LDL Cholesterol Direct HDL Cholesterol Urine WBC (Auto) Salicylates Acetaminophen % CD3 Cells % CD19 Cells Absolute CD19 Count Crossmatch 08/24/18 08/24/18 08/24/18 08:30 17:44 18:28 WBC RBC Hgb Hct RDW Plt Count Lymph % (Auto) [place] % (Auto) Lymph # Seg Neutrophils % Seg Neuts % (Manual) Lymphocytes % (Manual) Nucleated RBC % Seg Neutrophils # Seg Neutrophils # Man Lymphocytes # (Manual) D-Dimer POC ABG pH 7.474 H POC ABG pCO2 POC ABG pO2 61 L VBG pH Sodium Potassium Chloride 108.3 H Carbon Dioxide 20 L BUN 65 H Creatinine 2.0 H Glucose 167 H POC Glucose 164 H Hemoglobin A1c Lactic Acid Calcium 7.7 L Phosphorus AST ALT Troponin T C-Reactive Protein Total Protein 5.3 L Albumin 2.2 L Triglycerides LDL Cholesterol Direct HDL Cholesterol Urine WBC (Auto) Salicylates Acetaminophen % CD3 Cells % CD19 Cells Absolute CD19 Count Crossmatch 08/25/18 08/25/18 08/25/18 03:35 05:20 05:20 WBC RBC Hgb 6.7 L Hct 21.0 L RDW Plt Count Lymph % (Auto) [place] % (Auto) Lymph # Seg Neutrophils % Seg Neuts % (Manual) Lymphocytes % (Manual) Nucleated RBC % Seg Neutrophils # Seg Neutrophils # Man Lymphocytes # (Manual) D-Dimer POC ABG pH POC ABG pCO2 POC ABG pO2 79 L VBG pH Sodium Potassium Chloride Carbon Dioxide 21 L BUN 71 H Creatinine 3.1 H D Glucose 171 H POC Glucose Hemoglobin A1c Lactic Acid Calcium 7.5 L Phosphorus AST ALT Troponin T C-Reactive Protein Total Protein Albumin Triglycerides LDL Cholesterol Direct HDL Cholesterol Urine WBC (Auto) Salicylates Acetaminophen % CD3 Cells % CD19 Cells Absolute CD19 Count Crossmatch 08/25/18 08/25/18 08/25/18 05:20 08:52 12:42 WBC RBC Hgb Hct RDW Plt Count Lymph % (Auto) [place] % (Auto) Lymph # Seg Neutrophils % Seg Neuts % (Manual) Lymphocytes % (Manual) Nucleated RBC % Seg Neutrophils # Seg Neutrophils # Man Lymphocytes # (Manual) D-Dimer POC ABG pH POC ABG pCO2 POC ABG pO2 VBG pH Sodium Potassium Chloride Carbon Dioxide BUN Creatinine Glucose POC Glucose 166 H Hemoglobin A1c Lactic Acid Calcium Phosphorus AST ALT Troponin T C-Reactive Protein 5.00 H Total Protein Albumin Triglycerides LDL Cholesterol Direct HDL Cholesterol Urine WBC (Auto) Salicylates Acetaminophen % CD3 Cells % CD19 Cells Absolute CD19 Count Crossmatch See Detail 08/25/18 08/26/18 08/26/18 18:05 00:13 04:53 WBC RBC Hgb Hct RDW Plt Count Lymph % (Auto) [place] % (Auto) Lymph # Seg Neutrophils % Seg Neuts % (Manual) Lymphocytes % (Manual) Nucleated RBC % Seg Neutrophils # Seg Neutrophils # Man Lymphocytes # (Manual) D-Dimer POC ABG pH POC ABG pCO2 30.9 L POC ABG pO2 70 L VBG pH Sodium Potassium Chloride Carbon Dioxide BUN Creatinine Glucose POC Glucose 121 H 164 H Hemoglobin A1c Lactic Acid Calcium Phosphorus AST ALT Troponin T C-Reactive Protein Total Protein Albumin Triglycerides LDL Cholesterol Direct HDL Cholesterol Urine WBC (Auto) Salicylates Acetaminophen % CD3 Cells % CD19 Cells Absolute CD19 Count Crossmatch 08/26/18 08/26/18 08/26/18 05:42 06:00 06:00 WBC RBC 2.62 L Hgb 7.7 L Hct 23.0 L RDW 22.0 H Plt Count Lymph % (Auto) 6.3 L [place] % (Auto) Lymph # 0.7 L Seg Neutrophils % 88.1 H Seg Neuts % (Manual) Lymphocytes % (Manual) Nucleated RBC % Seg Neutrophils # 9.6 H Seg Neutrophils # Man Lymphocytes # (Manual) D-Dimer POC ABG pH POC ABG pCO2 POC ABG pO2 VBG pH Sodium Potassium Chloride Carbon Dioxide 21 L BUN 70 H Creatinine 3.3 H Glucose 146 H POC Glucose 149 H Hemoglobin A1c Lactic Acid Calcium 8.0 L Phosphorus AST ALT Troponin T C-Reactive Protein Total Protein Albumin Triglycerides LDL Cholesterol Direct HDL Cholesterol Urine WBC (Auto) Salicylates Acetaminophen % CD3 Cells % CD19 Cells Absolute CD19 Count Crossmatch 08/26/18 08/26/18 08/27/18 11:37 23:54 04:35 WBC RBC 2.50 L Hgb 7.6 L Hct 22.3 L RDW 21.8 H Plt Count Lymph % (Auto) 7.3 L [place] % (Auto) Lymph # 0.7 L Seg Neutrophils % 85.6 H Seg Neuts % (Manual) Lymphocytes % (Manual) Nucleated RBC % Seg Neutrophils # 8.6 H Seg Neutrophils # Man Lymphocytes # (Manual) D-Dimer POC ABG pH POC ABG pCO2 POC ABG pO2 VBG pH Sodium Potassium Chloride Carbon Dioxide BUN Creatinine Glucose POC Glucose 183 H 150 H Hemoglobin A1c Lactic Acid Calcium Phosphorus AST ALT Troponin T C-Reactive Protein Total Protein Albumin Triglycerides LDL Cholesterol Direct HDL Cholesterol Urine WBC (Auto) Salicylates Acetaminophen % CD3 Cells % CD19 Cells Absolute CD19 Count Crossmatch 08/27/18 08/27/18 08/28/18 04:35 12:17 04:43 WBC RBC Hgb Hct RDW Plt Count Lymph % (Auto) [place] % (Auto) Lymph # Seg Neutrophils % Seg Neuts % (Manual) Lymphocytes % (Manual) Nucleated RBC % Seg Neutrophils # Seg Neutrophils # Man Lymphocytes # (Manual) D-Dimer POC ABG pH POC ABG pCO2 32.1 L 33.8 L POC ABG pO2 68 L 78 L VBG pH Sodium Potassium Chloride Carbon Dioxide 19 L BUN 67 H Creatinine 2.9 H Glucose 155 H POC Glucose Hemoglobin A1c Lactic Acid Calcium Phosphorus 4.70 H AST ALT Troponin T C-Reactive Protein Total Protein Albumin Triglycerides LDL Cholesterol Direct HDL Cholesterol Urine WBC (Auto) Salicylates Acetaminophen % CD3 Cells % CD19 Cells Absolute CD19 Count Crossmatch 08/28/18 08/28/18 08/28/18 05:03 05:20 05:20 WBC RBC 2.43 L Hgb 7.4 L Hct 21.8 L RDW 20.8 H Plt Count Lymph % (Auto) 7.6 L [place] % (Auto) 8.7 H Lymph # 0.7 L Seg Neutrophils % 82.9 H Seg Neuts % (Manual) Lymphocytes % (Manual) Nucleated RBC % Seg Neutrophils # Seg Neutrophils # Man Lymphocytes # (Manual) D-Dimer POC ABG pH POC ABG pCO2 POC ABG pO2 VBG pH Sodium Potassium Chloride 107.8 H Carbon Dioxide 21 L BUN 55 H Creatinine 2.0 H Glucose 177 H POC Glucose 160 H Hemoglobin A1c Lactic Acid Calcium Phosphorus AST ALT Troponin T C-Reactive Protein Total Protein Albumin Triglycerides LDL Cholesterol Direct HDL Cholesterol Urine WBC (Auto) Salicylates Acetaminophen % CD3 Cells % CD19 Cells Absolute CD19 Count Crossmatch 08/28/18 12:18 WBC RBC Hgb Hct RDW Plt Count Lymph % (Auto) [place] % (Auto) Lymph # Seg Neutrophils % Seg Neuts % (Manual) Lymphocytes % (Manual) Nucleated RBC % Seg Neutrophils # Seg Neutrophils # Man Lymphocytes # (Manual) D-Dimer POC ABG pH POC ABG pCO2 POC ABG pO2 VBG pH Sodium Potassium Chloride Carbon Dioxide BUN Creatinine Glucose POC Glucose 164 H Hemoglobin A1c Lactic Acid Calcium Phosphorus AST ALT Troponin T C-Reactive Protein Total Protein Albumin Triglycerides LDL Cholesterol Direct HDL Cholesterol Urine WBC (Auto) Salicylates Acetaminophen % CD3 Cells % CD19 Cells Absolute CD19 Count Crossmatch Allied health notes reviewed: nursing
[2018-08-28] MEDS: SUBLIMAZE IV PRN (19:44)
[2018-08-29] MEDS: DUONEB *Not for PRN Use IH SCH ×4 (04:26→19:40)
[2018-08-29 05:33] LABS: Basophils % (Auto) 0.5 % (0.0-1.8); Hematocrit 20.9 % (30.3-42.9); Lymphocytes # (Auto) 0.8 K/mm3 (1.2-5.4); Lymphocytes % (Auto) 11.5 % (13.4-35.0); Mean Corpuscular HGB Conc 33 % (30-34); Mean Corpuscular Volume 91 fl (79-97); Monocytes # (Auto) 0.7 K/mm3 (0.0-0.8); Monocytes % (Auto) 9.2 % (0.0-7.3); Platelet Count 242 K/mm3 (140-440)
[2018-08-29 05:58] LABS: Albumin 2.1 g/dL (3.9-5); BUN/Creatinine Ratio 31; Blood Urea Nitrogen 55 mg/dL (7-17); Calcium 8.7 mg/dL (8.4-10.2); Hemolysis Index 5
[2018-08-29 06:02] LABS: Alanine Aminotransferase < 5 units/L (7-56)
[2018-08-29] MEDS: PULMICORT IH SCH ×2 (08:21→19:40)
[2018-08-29] MEDS: BROVANA NEBU IH SCH ×2 (08:21→19:41)
[2018-08-29] MEDS: PROAMATINE PO SCH ×2 (08:56→15:32)
[2018-08-29] MEDS: CYMBALTA PO SCH (09:30)
[2018-08-29] MEDS: COREG PO SCH ×2 (09:31→22:54)
[2018-08-29] MEDS: PEPCID PO SCH ×2 (09:31→22:54)
[2018-08-29] MEDS: fentaNYL DRIP Premix 2,000 MCG/100 ML BAG IV SCH (10:31)
[2018-08-29] MEDS: MYCAMINE 100 MG in NACL 0.9% 100 ML IV SCH (10:32)
[2018-08-29] MEDS: SODIUM CHLORIDE FLUSH SYRINGE 10 ML IV SCH ×2 (10:45→22:56)
--- NOTE | 2018-08-29 12:05 | Progress Note ---
Assessment and Plan Severe sepsis with septic shock Intermittent fevers and hypotension -Fungemia on Micafungin Acute hypoxic-hypercapnic respiratory failure on MVS h/o COPD Acute kidney injury, rising creatinine levels Acute encephalopathy( toxic-metabolic)- much improved Aspiration pneumonia/CAP New onset cardiomyopathy, LVEF 25-30% this admission Previous echo 03/30/2016 at [facility] revealed normal LVEF Previous stress MPI 03/29/2016 at [facility] revealed no ischemia Abnormal ECG showing LBBB, chronic Anemia s/p PRBC with appropriate response -Recent EGD at [facility] 08/08/2018 revealing irregular Z line, gastritis and small hiatal hernia Recent colonoscopy at [facility] 08/08/2018 revealing sigmoid polyp, transverse colon polyps, inflamed hemorrhoids and diverticulosis E.coli/Staph pneumonia Thrombocytopenia resolved -Continue full MVS -Wean supplemental oxygen to keep O2 sats 88-90% -Lung protective strategies -Oxygen restrictive strategies -Antibiotics/antifungal to complete course -VAP bundle addressed - agitation and analgesia management -Monitor renal indices -Cardioprotective measures -Sedation target for RASS 0 to -1 -Stress ulcer prophylaxis -VTE prophylaxis, SCDs -HIT panel negative. Resume enoxaparin -Tube feedings for nutritional support -Aspiration precautions -Accuchecks with glycemic control. Target glucose of 140-180 mg/dL -Continue bronchodilators with pulmonary hygiene per RT -Maintenance of sleep -wake cycle -Mobility as tolerated by hemodynamics, discussed with PT. Mobility program -Influenza and pneumonia vaccination per protocol ..care plan discussed at length with RN/RT at the bedside ...discussed care plan with ICU team on ICU-IDT rounds Discussed with the at the bedside. Updated him and care plan discussed. Goal is to liberate from MVS today. Nocturnal BIPAP support QHS and prn post extubation CXR in the morning PROGNOSIS :GUARDED CONDITION: CRITICAL CODE STATUS: FULL CODE The high probability of a clinically significant, sudden or life-threatening deterioration of the [respiratory, cardiovascular, renal] system(s) required my full and direct attention, intervention and personal management. The aggregate critical care time was [35] minutes without overlap. Time includes spent on; [x] Data Review and interpretation [x] Patient assessment and monitoring of vital signs [x] Documentation [x] Medication orders and management Subjective Date of service: 08/29/18 Principal diagnosis: Acute hypoxemic hypercapnic Resp failure; AE-COPD; Acute kidney injury Interval history: Follow up: Aspiration PNA, Abnormal CXR, Hypotension, Acute renal failure, Acute encephaloapthy, Acute hypoxemic respiratory failure onMVS Seen and examined. Vitals, labs, medications, chart and imaging reviewed. 24 hours events reviewed. Agitation on going per RN. No fevers, no vomiting. remains on full mechanical ventilatory support, no vasopressors, on fentanyl , Less tacyhpnic, spontaneous eye opening, moving all extremities. at the bedside Objective Vital Signs - 12hr 08/29/18 08/29/18 08/29/18 00:16 00:30 00:46 Temperature Pulse Rate 72 71 68 Pulse Rate [ Anterior Bilateral Throughout] Pulse Rate [ Apical] Respiratory 20 20 25 H Rate Respiratory Rate [Anterior Bilateral Throughout] Blood Pressure 118/52 118/52 127/58 O2 Sat by Pulse 96 94 95 Oximetry 08/29/18 08/29/18 08/29/18 01:00 01:16 01:30 Temperature Pulse Rate 67 65 66 Pulse Rate [ Anterior Bilateral Throughout] Pulse Rate [ Apical] Respiratory 22 18 20 Rate Respiratory Rate [Anterior Bilateral Throughout] Blood Pressure 127/58 114/52 123/55 O2 Sat by Pulse 96 97 95 Oximetry 08/29/18 08/29/18 08/29/18 01:46 02:00 02:16 Temperature Pulse Rate 72 69 71 Pulse Rate [ Anterior Bilateral Throughout] Pulse Rate [ Apical] Respiratory 26 H 25 H 24 Rate Respiratory Rate [Anterior Bilateral Throughout] Blood Pressure 123/55 123/55 120/54 O2 Sat by Pulse 94 95 95 Oximetry 08/29/18 08/29/18 08/29/18 02:30 02:46 03:00 Temperature Pulse Rate 67 77 75 Pulse Rate [ Anterior Bilateral Throughout] Pulse Rate [ Apical] Respiratory 27 H 22 19 Rate Respiratory Rate [Anterior Bilateral Throughout] Blood Pressure 120/54 120/54 120/54 O2 Sat by Pulse 98 95 94 Oximetry 08/29/18 08/29/18 08/29/18 03:16 03:30 03:46 Temperature 98.9 F Pulse Rate 75 81 79 Pulse Rate [ Anterior Bilateral Throughout] Pulse Rate [ Apical] Respiratory 15 26 H 21 Rate Respiratory Rate [Anterior Bilateral Throughout] Blood Pressure 137/63 137/63 141/62 O2 Sat by Pulse 94 94 95 Oximetry 08/29/18 08/29/18 08/29/18 04:00 04:16 04:30 Temperature Pulse Rate 76 68 78 Pulse Rate [ 77 Anterior Bilateral Throughout] Pulse Rate [ 74 Apical] Respiratory 17 18 25 H Rate Respiratory 22 Rate [Anterior Bilateral Throughout] Blood Pressure 143/63 138/59 149/69 O2 Sat by Pulse 94 95 95 Oximetry 08/29/18 08/29/18 08/29/18 04:46 05:00 05:16 Temperature Pulse Rate 78 74 77 Pulse Rate [ Anterior Bilateral Throughout] Pulse Rate [ Apical] Respiratory 26 H 24 20 Rate Respiratory Rate [Anterior Bilateral Throughout] Blood Pressure 143/63 143/63 149/69 O2 Sat by Pulse 94 95 95 Oximetry 08/29/18 08/29/18 08/29/18 05:30 05:46 08:23 Temperature Pulse Rate 66 76 78 Pulse Rate [ 76 Anterior Bilateral Throughout] Pulse Rate [ Apical] Respiratory 24 22 Rate Respiratory 20 Rate [Anterior Bilateral Throughout] Blood Pressure 149/69 145/65 162/69 O2 Sat by Pulse 95 97 95 Oximetry 08/29/18 08/29/18 08:42 09:31 Temperature Pulse Rate 79 Pulse Rate [ 85 Anterior Bilateral Throughout] Pulse Rate [ Apical] Respiratory Rate Respiratory 13 Rate [Anterior Bilateral Throughout] Blood Pressure 158/64 O2 Sat by Pulse Oximetry Constitutional: appears uncomfortable, other (elderly looking CF, normocephalic and atraumatic) Eyes: non-icteric ENT: oropharynx moist, other (ETT 23 cm MARTHA) Neck: supple, no lymphadenopathy, no JVD, other (no thyromegaly) Effort: normal Ascultation: Bilateral: diminished breath sounds, rales, rhonchi Percussion: Bilateral: not dull Cardiovascular: regular rate and rhythm, other (S1,S2, no murmurs) Gastrointestinal: normoactive bowel sounds, soft, non-tender, non-distended Integumentary: normal Extremities: no cyanosis, no edema, no ischemia or petechiae Neurologic: normal mental status, non-focal exam (grossly), pupils equal and r ound, CN II-XII normal, motor strength normal and Psychiatric: mood appropriate, affect normal CBC and BMP: 08/29/18 05:25 08/29/18 05:25 ABG, PT/INR, D-dimer: ABG POC ABG pH 7.417 (7.35-7.45) 08/28/18 22:31 POC ABG pCO2 34.4 (35-45) L 08/28/18 22:31 POC ABG pO2 67 (80-105) L 08/28/18 22:31 POC ABG HCO3 22.1 (22-26 mml/L) 08/28/18 22:31 POC ABG Total CO2 23 (23-27mmol/L) 08/28/18 22:31 POC ABG O2 Sat 94 08/28/18 22:31 PT/INR, D-dimer D-Dimer 2768.33 ng/mlDDU (0-234) H 08/15/18 18:31 Abnormal lab findings: Abnormal Labs 08/15/18 08/15/18 08/15/18 17:52 17:52 17:52 WBC 12.7 H RBC 3.25 L Hgb Hct RDW Plt Count Lymph % (Auto) [place] % (Auto) Lymph # Seg Neutrophils % Seg Neuts % (Manual) Lymphocytes % (Manual) 6.0 L Nucleated RBC % Seg Neutrophils # Seg Neutrophils # Man Lymphocytes # (Manual) 0.8 L D-Dimer POC ABG pH POC ABG pCO2 POC ABG pO2 VBG pH Sodium Potassium 3.4 L Chloride 94.6 L Carbon Dioxide 17 L BUN 67 H Creatinine 3.5 H Glucose 131 H POC Glucose Hemoglobin A1c Lactic Acid 5.20 H* Calcium 7.6 L Phosphorus AST 887 H ALT 316 H Troponin T C-Reactive Protein Total Protein Albumin 3.1 L Triglycerides LDL Cholesterol Direct HDL Cholesterol Urine WBC (Auto) Salicylates Acetaminophen % CD3 Cells % CD19 Cells Absolute CD19 Count Crossmatch 08/15/18 08/15/18 08/15/18 18:11 18:19 18:31 WBC RBC Hgb Hct RDW Plt Count Lymph % (Auto) [place] % (Auto) Lymph # Seg Neutrophils % Seg Neuts % (Manual) Lymphocytes % (Manual) Nucleated RBC % Seg Neutrophils # Seg Neutrophils # Man Lymphocytes # (Manual) D-Dimer 2768.33 H POC ABG pH 7.173 L POC ABG pCO2 47.8 H POC ABG pO2 177 H VBG pH 7.187 L* Sodium Potassium Chloride Carbon Dioxide BUN Creatinine Glucose POC Glucose Hemoglobin A1c Lactic Acid Calcium Phosphorus AST ALT Troponin T C-Reactive Protein Total Protein Albumin Triglycerides LDL Cholesterol Direct HDL Cholesterol Urine WBC (Auto) Salicylates Acetaminophen % CD3 Cells % CD19 Cells Absolute CD19 Count Crossmatch 08/15/18 08/15/18 08/15/18 18:31 19:14 19:14 WBC RBC Hgb Hct RDW Plt Count Lymph % (Auto) [place] % (Auto) Lymph # Seg Neutrophils % Seg Neuts % (Manual) Lymphocytes % (Manual) Nucleated RBC % Seg Neutrophils # Seg Neutrophils # Man Lymphocytes # (Manual) D-Dimer POC ABG pH POC ABG pCO2 POC ABG pO2 VBG pH Sodium Potassium Chloride Carbon Dioxide BUN Creatinine Glucose POC Glucose Hemoglobin A1c Lactic Acid 2.70 H* Calcium Phosphorus AST ALT Troponin T 0.454 H* C-Reactive Protein Total Protein Albumin Triglycerides 356 H LDL Cholesterol Direct 4 L HDL Cholesterol 10 L Urine WBC (Auto) Salicylates < 0.3 L Acetaminophen % CD3 Cells % CD19 Cells Absolute CD19 Count Crossmatch 08/15/18 08/15/18 08/15/18 19:14 19:15 23:09 WBC RBC Hgb Hct RDW Plt Count Lymph % (Auto) [place] % (Auto) Lymph # Seg Neutrophils % Seg Neuts % (Manual) Lymphocytes % (Manual) Nucleated RBC % Seg Neutrophils # Seg Neutrophils # Man Lymphocytes # (Manual) D-Dimer POC ABG pH POC ABG pCO2 POC ABG pO2 VBG pH Sodium Potassium Chloride Carbon Dioxide BUN Creatinine Glucose POC Glucose Hemoglobin A1c Lactic Acid 3.20 H* Calcium Phosphorus AST ALT Troponin T C-Reactive Protein Total Protein Albumin Triglycerides LDL Cholesterol Direct HDL Cholesterol Urine WBC (Auto) 17.0 H Salicylates Acetaminophen < 5.0 L % CD3 Cells % CD19 Cells Absolute CD19 Count Crossmatch 08/15/18 08/16/18 08/16/18 23:09 01:41 05:38 WBC RBC 3.07 L Hgb 9.8 L Hct 28.7 L RDW Plt Count Lymph % (Auto) [place] % (Auto) Lymph # Seg Neutrophils % Seg Neuts % (Manual) 84.0 H Lymphocytes % (Manual) 6.0 L Nucleated RBC % 4.0 H Seg Neutrophils # Seg Neutrophils # Man Lymphocytes # (Manual) 0.5 L D-Dimer POC ABG pH 7.323 L POC ABG pCO2 34.7 L POC ABG pO2 78 L VBG pH Sodium Potassium Chloride Carbon Dioxide BUN Creatinine Glucose POC Glucose Hemoglobin A1c 6.4 H Lactic Acid Calcium Phosphorus AST ALT Troponin T C-Reactive Protein Total Protein Albumin Triglycerides LDL Cholesterol Direct HDL Cholesterol Urine WBC (Auto) Salicylates Acetaminophen % CD3 Cells % CD19 Cells Absolute CD19 Count Crossmatch 08/16/18 08/16/18 08/17/18 05:38 22:43 03:42 WBC RBC Hgb Hct RDW Plt Count Lymph % (Auto) [place] % (Auto) Lymph # Seg Neutrophils % Seg Neuts % (Manual) Lymphocytes % (Manual) Nucleated RBC % Seg Neutrophils # Seg Neutrophils # Man Lymphocytes # (Manual) D-Dimer POC ABG pH POC ABG pCO2 POC ABG pO2 VBG pH Sodium Potassium 2.9 L* 3.1 L 2.9 L* Chloride 108.8 H 111.9 H Carbon Dioxide 17 L 19 L 21 L BUN 62 H 40 H 33 H Creatinine 2.0 H Glucose 139 H 145 H POC Glucose Hemoglobin A1c Lactic Acid Calcium 7.8 L 8.3 L Phosphorus 1.50 L AST 619 H ALT 353 H Troponin T C-Reactive Protein Total Protein 6.1 L Albumin 2.8 L Triglycerides LDL Cholesterol Direct HDL Cholesterol Urine WBC (Auto) Salicylates Acetaminophen % CD3 Cells % CD19 Cells Absolute CD19 Count Crossmatch 08/17/18 08/17/18 08/18/18 11:02 16:42 03:28 WBC RBC Hgb Hct RDW Plt Count Lymph % (Auto) [place] % (Auto) Lymph # Seg Neutrophils % Seg Neuts % (Manual) Lymphocytes % (Manual) Nucleated RBC % Seg Neutrophils # Seg Neutrophils # Man Lymphocytes # (Manual) D-Dimer POC ABG pH 7.483 H 7.499 H POC ABG pCO2 POC ABG pO2 VBG pH Sodium 147 H Potassium 3.2 L Chloride 115.8 H Carbon Dioxide BUN 23 H Creatinine Glucose 121 H POC Glucose Hemoglobin A1c Lactic Acid Calcium 8.1 L Phosphorus 2.30 L D AST ALT Troponin T C-Reactive Protein Total Protein Albumin Triglycerides LDL Cholesterol Direct HDL Cholesterol Urine WBC (Auto) Salicylates Acetaminophen % CD3 Cells % CD19 Cells Absolute CD19 Count Crossmatch 08/18/18 08/18/18 08/18/18 04:10 13:39 13:39 WBC RBC Hgb Hct RDW Plt Count Lymph % (Auto) [place] % (Auto) Lymph # Seg Neutrophils % Seg Neuts % (Manual) Lymphocytes % (Manual) Nucleated RBC % Seg Neutrophils # Seg Neutrophils # Man Lymphocytes # (Manual) D-Dimer POC ABG pH POC ABG pCO2 POC ABG pO2 VBG pH Sodium 147 H Potassium 3.3 L Chloride 111.9 H Carbon Dioxide BUN 21 H Creatinine Glucose 113 H POC Glucose Hemoglobin A1c Lactic Acid Calcium Phosphorus 1.50 L D AST ALT Troponin T 0.317 H* D C-Reactive Protein 10.70 H Total Protein Albumin Triglycerides LDL Cholesterol Direct HDL Cholesterol Urine WBC (Auto) Salicylates Acetaminophen % CD3 Cells % CD19 Cells Absolute CD19 Count Crossmatch 08/18/18 08/19/18 08/19/18 16:51 03:47 04:15 WBC RBC Hgb Hct RDW Plt Count Lymph % (Auto) [place] % (Auto) Lymph # Seg Neutrophils % Seg Neuts % (Manual) Lymphocytes % (Manual) Nucleated RBC % Seg Neutrophils # Seg Neutrophils # Man Lymphocytes # (Manual) D-Dimer POC ABG pH 7.454 H 7.482 H POC ABG pCO2 POC ABG pO2 65 L VBG pH Sodium 154 H Potassium 3.3 L Chloride 115.1 H Carbon Dioxide BUN 19 H Creatinine Glucose 117 H POC Glucose Hemoglobin A1c Lactic Acid Calcium 7.8 L Phosphorus AST ALT Troponin T C-Reactive Protein Total Protein Albumin Triglycerides LDL Cholesterol Direct HDL Cholesterol Urine WBC (Auto) Salicylates Acetaminophen % CD3 Cells % CD19 Cells Absolute CD19 Count Crossmatch 08/19/18 08/19/18 08/20/18 14:32 16:18 03:51 WBC RBC Hgb Hct RDW Plt Count Lymph % (Auto) [place] % (Auto) Lymph # Seg Neutrophils % Seg Neuts % (Manual) Lymphocytes % (Manual) Nucleated RBC % Seg Neutrophils # Seg Neutrophils # Man Lymphocytes # (Manual) D-Dimer POC ABG pH 7.483 H POC ABG pCO2 33.4 L POC ABG pO2 51 L 74 L VBG pH Sodium Potassium Chloride Carbon Dioxide BUN Creatinine Glucose POC Glucose Hemoglobin A1c Lactic Acid Calcium Phosphorus AST ALT Troponin T C-Reactive Protein Total Protein Albumin Triglycerides LDL Cholesterol Direct HDL Cholesterol Urine WBC (Auto) Salicylates Acetaminophen % CD3 Cells 44 L % CD19 Cells 41 H Absolute CD19 Count 1290 H Crossmatch 08/20/18 08/21/18 08/21/18 05:25 03:54 05:45 WBC 24.1 H RBC 2.83 L Hgb 8.8 L Hct 26.7 L RDW 15.7 H Plt Count 127 L Lymph % (Auto) [place] % (Auto) Lymph # Seg Neutrophils % Seg Neuts % (Manual) 94.0 H Lymphocytes % (Manual) 4.0 L Nucleated RBC % 1.0 H Seg Neutrophils # Seg Neutrophils # Man 22.7 H Lymphocytes # (Manual) 1.0 L D-Dimer POC ABG pH POC ABG pCO2 31.9 L POC ABG pO2 66 L VBG pH Sodium 146 H D Potassium Chloride 111.2 H Carbon Dioxide BUN 24 H Creatinine Glucose 141 H POC Glucose Hemoglobin A1c Lactic Acid Calcium 8.1 L Phosphorus AST 65 H ALT 104 H Troponin T C-Reactive Protein Total Protein 6.2 L Albumin 2.6 L Triglycerides LDL Cholesterol Direct HDL Cholesterol Urine WBC (Auto) Salicylates Acetaminophen % CD3 Cells % CD19 Cells Absolute CD19 Count Crossmatch 08/21/18 08/22/18 08/22/18 05:45 06:20 06:45 WBC RBC Hgb Hct RDW Plt Count Lymph % (Auto) [place] % (Auto) Lymph # Seg Neutrophils % Seg Neuts % (Manual) Lymphocytes % (Manual) Nucleated RBC % Seg Neutrophils # Seg Neutrophils # Man Lymphocytes # (Manual) D-Dimer POC ABG pH POC ABG pCO2 32.9 L POC ABG pO2 VBG pH Sodium Potassium 3.5 L Chloride 109.4 H 112.4 H Carbon Dioxide 21 L 20 L BUN 50 H 61 H Creatinine 2.0 H D 1.9 H Glucose 144 H 154 H POC Glucose Hemoglobin A1c Lactic Acid Calcium 7.6 L 7.8 L Phosphorus AST ALT Troponin T C-Reactive Protein Total Protein 5.3 L Albumin 2.1 L Triglycerides LDL Cholesterol Direct HDL Cholesterol Urine WBC (Auto) Salicylates Acetaminophen % CD3 Cells % CD19 Cells Absolute CD19 Count Crossmatch 08/22/18 08/22/18 08/22/18 06:45 15:29 18:40 WBC RBC Hgb Hct RDW Plt Count Lymph % (Auto) [place] % (Auto) Lymph # Seg Neutrophils % Seg Neuts % (Manual) Lymphocytes % (Manual) Nucleated RBC % Seg Neutrophils # Seg Neutrophils # Man Lymphocytes # (Manual) D-Dimer POC ABG pH POC ABG pCO2 POC ABG pO2 VBG pH Sodium Potassium Chloride Carbon Dioxide BUN Creatinine Glucose POC Glucose 169 H Hemoglobin A1c Lactic Acid Calcium Phosphorus AST ALT Troponin T C-Reactive Protein 4.70 H Total Protein Albumin Triglycerides 197 H LDL Cholesterol Direct HDL Cholesterol Urine WBC (Auto) Salicylates Acetaminophen % CD3 Cells % CD19 Cells Absolute CD19 Count Crossmatch 08/23/18 08/23/18 08/23/18 03:59 21:19 Unknown WBC 12.1 H RBC 2.29 L Hgb 7.1 L Hct 21.7 L RDW 15.7 H Plt Count 106 L Lymph % (Auto) [place] % (Auto) Lymph # Seg Neutrophils % Seg Neuts % (Manual) 92.0 H Lymphocytes % (Manual) 4.0 L Nucleated RBC % Seg Neutrophils # Seg Neutrophils # Man 11.1 H Lymphocytes # (Manual) 0.5 L D-Dimer POC ABG pH 7.306 L POC ABG pCO2 31.3 L POC ABG pO2 119 H 75 L VBG pH Sodium Potassium Chloride Carbon Dioxide BUN Creatinine Glucose POC Glucose Hemoglobin A1c Lactic Acid Calcium Phosphorus AST ALT Troponin T C-Reactive Protein Total Protein Albumin Triglycerides LDL Cholesterol Direct HDL Cholesterol Urine WBC (Auto) Salicylates Acetaminophen % CD3 Cells % CD19 Cells Absolute CD19 Count Crossmatch 08/23/18 08/24/18 08/24/18 Unknown 04:18 08:30 WBC 12.8 H RBC 2.24 L Hgb 7.0 L Hct 21.1 L RDW Plt Count Lymph % (Auto) [place] % (Auto) Lymph # Seg Neutrophils % Seg Neuts % (Manual) 93.0 H Lymphocytes % (Manual) 6.0 L Nucleated RBC % Seg Neutrophils # Seg Neutrophils # Man 11.9 H Lymphocytes # (Manual) 0.8 L D-Dimer POC ABG pH POC ABG pCO2 POC ABG pO2 78 L VBG pH Sodium Potassium Chloride 115.7 H Carbon Dioxide 21 L BUN 64 H Creatinine 2.0 H Glucose 149 H POC Glucose Hemoglobin A1c Lactic Acid Calcium 7.5 L Phosphorus AST ALT Troponin T C-Reactive Protein Total Protein 4.8 L Albumin 2.0 L Triglycerides LDL Cholesterol Direct HDL Cholesterol Urine WBC (Auto) Salicylates Acetaminophen % CD3 Cells % CD19 Cells Absolute CD19 Count Crossmatch 08/24/18 08/24/18 08/24/18 08:30 17:44 18:28 WBC RBC Hgb Hct RDW Plt Count Lymph % (Auto) [place] % (Auto) Lymph # Seg Neutrophils % Seg Neuts % (Manual) Lymphocytes % (Manual) Nucleated RBC % Seg Neutrophils # Seg Neutrophils # Man Lymphocytes # (Manual) D-Dimer POC ABG pH 7.474 H POC ABG pCO2 POC ABG pO2 61 L VBG pH Sodium Potassium Chloride 108.3 H Carbon Dioxide 20 L BUN 65 H Creatinine 2.0 H Glucose 167 H POC Glucose 164 H Hemoglobin A1c Lactic Acid Calcium 7.7 L Phosphorus AST ALT Troponin T C-Reactive Protein Total Protein 5.3 L Albumin 2.2 L Triglycerides LDL Cholesterol Direct HDL Cholesterol Urine WBC (Auto) Salicylates Acetaminophen % CD3 Cells % CD19 Cells Absolute CD19 Count Crossmatch 08/25/18 08/25/18 08/25/18 03:35 05:20 05:20 WBC RBC Hgb 6.7 L Hct 21.0 L RDW Plt Count Lymph % (Auto) [place] % (Auto) Lymph # Seg Neutrophils % Seg Neuts % (Manual) Lymphocytes % (Manual) Nucleated RBC % Seg Neutrophils # Seg Neutrophils # Man Lymphocytes # (Manual) D-Dimer POC ABG pH POC ABG pCO2 POC ABG pO2 79 L VBG pH Sodium Potassium Chloride Carbon Dioxide 21 L BUN 71 H Creatinine 3.1 H D Glucose 171 H POC Glucose Hemoglobin A1c Lactic Acid Calcium 7.5 L Phosphorus AST ALT Troponin T C-Reactive Protein Total Protein Albumin Triglycerides LDL Cholesterol Direct HDL Cholesterol Urine WBC (Auto) Salicylates Acetaminophen % CD3 Cells % CD19 Cells Absolute CD19 Count Crossmatch 08/25/18 08/25/18 08/25/18 05:20 08:52 12:42 WBC RBC Hgb Hct RDW Plt Count Lymph % (Auto) [place] % (Auto) Lymph # Seg Neutrophils % Seg Neuts % (Manual) Lymphocytes % (Manual) Nucleated RBC % Seg Neutrophils # Seg Neutrophils # Man Lymphocytes # (Manual) D-Dimer POC ABG pH POC ABG pCO2 POC ABG pO2 VBG pH Sodium Potassium Chloride Carbon Dioxide BUN Creatinine Glucose POC Glucose 166 H Hemoglobin A1c Lactic Acid Calcium Phosphorus AST ALT Troponin T C-Reactive Protein 5.00 H Total Protein Albumin Triglycerides LDL Cholesterol Direct HDL Cholesterol Urine WBC (Auto) Salicylates Acetaminophen % CD3 Cells % CD19 Cells Absolute CD19 Count Crossmatch See Detail 08/25/18 08/26/18 08/26/18 18:05 00:13 04:53 WBC RBC Hgb Hct RDW Plt Count Lymph % (Auto) [place] % (Auto) Lymph # Seg Neutrophils % Seg Neuts % (Manual) Lymphocytes % (Manual) Nucleated RBC % Seg Neutrophils # Seg Neutrophils # Man Lymphocytes # (Manual) D-Dimer POC ABG pH POC ABG pCO2 30.9 L POC ABG pO2 70 L VBG pH Sodium Potassium Chloride Carbon Dioxide BUN Creatinine Glucose POC Glucose 121 H 164 H Hemoglobin A1c Lactic Acid Calcium Phosphorus AST ALT Troponin T C-Reactive Protein Total Protein Albumin Triglycerides LDL Cholesterol Direct HDL Cholesterol Urine WBC (Auto) Salicylates Acetaminophen % CD3 Cells % CD19 Cells Absolute CD19 Count Crossmatch 08/26/18 08/26/18 08/26/18 05:42 06:00 06:00 WBC RBC 2.62 L Hgb 7.7 L Hct 23.0 L RDW 22.0 H Plt Count Lymph % (Auto) 6.3 L [place] % (Auto) Lymph # 0.7 L Seg Neutrophils % 88.1 H Seg Neuts % (Manual) Lymphocytes % (Manual) Nucleated RBC % Seg Neutrophils # 9.6 H Seg Neutrophils # Man Lymphocytes # (Manual) D-Dimer POC ABG pH POC ABG pCO2 POC ABG pO2 VBG pH Sodium Potassium Chloride Carbon Dioxide 21 L BUN 70 H Creatinine 3.3 H Glucose 146 H POC Glucose 149 H Hemoglobin A1c Lactic Acid Calcium 8.0 L Phosphorus AST ALT Troponin T C-Reactive Protein Total Protein Albumin Triglycerides LDL Cholesterol Direct HDL Cholesterol Urine WBC (Auto) Salicylates Acetaminophen % CD3 Cells % CD19 Cells Absolute CD19 Count Crossmatch 08/26/18 08/26/18 08/27/18 11:37 23:54 04:35 WBC RBC 2.50 L Hgb 7.6 L Hct 22.3 L RDW 21.8 H Plt Count Lymph % (Auto) 7.3 L [place] % (Auto) Lymph # 0.7 L Seg Neutrophils % 85.6 H Seg Neuts % (Manual) Lymphocytes % (Manual) Nucleated RBC % Seg Neutrophils # 8.6 H Seg Neutrophils # Man Lymphocytes # (Manual) D-Dimer POC ABG pH POC ABG pCO2 POC ABG pO2 VBG pH Sodium Potassium Chloride Carbon Dioxide BUN Creatinine Glucose POC Glucose 183 H 150 H Hemoglobin A1c Lactic Acid Calcium Phosphorus AST ALT Troponin T C-Reactive Protein Total Protein Albumin Triglycerides LDL Cholesterol Direct HDL Cholesterol Urine WBC (Auto) Salicylates Acetaminophen % CD3 Cells % CD19 Cells Absolute CD19 Count Crossmatch 08/27/18 08/27/18 08/28/18 04:35 12:17 04:43 WBC RBC Hgb Hct RDW Plt Count Lymph % (Auto) [place] % (Auto) Lymph # Seg Neutrophils % Seg Neuts % (Manual) Lymphocytes % (Manual) Nucleated RBC % Seg Neutrophils # Seg Neutrophils # Man Lymphocytes # (Manual) D-Dimer POC ABG pH POC ABG pCO2 32.1 L 33.8 L POC ABG pO2 68 L 78 L VBG pH Sodium Potassium Chloride Carbon Dioxide 19 L BUN 67 H Creatinine 2.9 H Glucose 155 H POC Glucose Hemoglobin A1c Lactic Acid Calcium Phosphorus 4.70 H AST ALT Troponin T C-Reactive Protein Total Protein Albumin Triglycerides LDL Cholesterol Direct HDL Cholesterol Urine WBC (Auto) Salicylates Acetaminophen % CD3 Cells % CD19 Cells Absolute CD19 Count Crossmatch 08/28/18 08/28/18 08/28/18 05:03 05:20 05:20 WBC RBC 2.43 L Hgb 7.4 L Hct 21.8 L RDW 20.8 H Plt Count Lymph % (Auto) 7.6 L [place] % (Auto) 8.7 H Lymph # 0.7 L Seg Neutrophils % 82.9 H Seg Neuts % (Manual) Lymphocytes % (Manual) Nucleated RBC % Seg Neutrophils # Seg Neutrophils # Man Lymphocytes # (Manual) D-Dimer POC ABG pH POC ABG pCO2 POC ABG pO2 VBG pH Sodium Potassium Chloride 107.8 H Carbon Dioxide 21 L BUN 55 H Creatinine 2.0 H Glucose 177 H POC Glucose 160 H Hemoglobin A1c Lactic Acid Calcium Phosphorus AST ALT Troponin T C-Reactive Protein Total Protein Albumin Triglycerides LDL Cholesterol Direct HDL Cholesterol Urine WBC (Auto) Salicylates Acetaminophen % CD3 Cells % CD19 Cells Absolute CD19 Count Crossmatch 08/28/18 08/28/18 08/28/18 12:18 18:58 22:31 WBC RBC Hgb Hct RDW Plt Count Lymph % (Auto) [place] % (Auto) Lymph # Seg Neutrophils % Seg Neuts % (Manual) Lymphocytes % (Manual) Nucleated RBC % Seg Neutrophils # Seg Neutrophils # Man Lymphocytes # (Manual) D-Dimer POC ABG pH POC ABG pCO2 34.4 L POC ABG pO2 67 L VBG pH Sodium Potassium Chloride Carbon Dioxide BUN Creatinine Glucose POC Glucose 164 H 149 H Hemoglobin A1c Lactic Acid Calcium Phosphorus AST ALT Troponin T C-Reactive Protein Total Protein Albumin Triglycerides LDL Cholesterol Direct HDL Cholesterol Urine WBC (Auto) Salicylates Acetaminophen % CD3 Cells % CD19 Cells Absolute CD19 Count Crossmatch 03/08/29/18 08/29/18 23:33 05:25 05:25 WBC RBC 2.30 L Hgb 7.0 L Hct 20.9 L RDW 21.0 H Plt Count Lymph % (Auto) 11.5 L [place] % (Auto) 9.2 H Lymph # 0.8 L Seg Neutrophils % 78.8 H Seg Neuts % (Manual) Lymphocytes % (Manual) Nucleated RBC % Seg Neutrophils # Seg Neutrophils # Man Lymphocytes # (Manual) D-Dimer POC ABG pH POC ABG pCO2 POC ABG pO2 VBG pH Sodium Potassium Chloride 111.1 H Carbon Dioxide BUN 55 H Creatinine 1.8 H Glucose 162 H POC Glucose 143 H Hemoglobin A1c Lactic Acid Calcium Phosphorus AST 46 H ALT < 5 L Troponin T C-Reactive Protein Total Protein 5.7 L Albumin 2.1 L Triglycerides LDL Cholesterol Direct HDL Cholesterol Urine WBC (Auto) Salicylates Acetaminophen % CD3 Cells % CD19 Cells Absolute CD19 Count Crossmatch Chest x-ray: image reviewed Allied health notes reviewed: nursing
--- NOTE | 2018-08-29 12:59 | Progress Note ---
Assessment and Plan - Patient Problems (1) Acute respiratory failure Current Visit: Yes Status: Acute Plan to address problem: Supportive measures, medical therapy for underlying dilated cardiomyopathy. (2) Dilated cardiomyopathy Current Visit: Yes Status: Acute Plan to address problem: Supportive measures, medical therapy for underlying dilated cardiomyopathy. Subjective Date of service: 08/29/18 Principal diagnosis: Acute hypoxemic hypercapnic Resp failure; AE-COPD; Acute kidney injury Interval history: The patient is awake, on the vent, weaning off the vent is said to be in progress. Normal sinus rhythm 71, blood pressure 130 systolic. Objective Vital Signs Temp Pulse Pulse Pulse Resp Resp BP 08/29/18 12:00 99.2 F 08/29/18 09:31 79 158/64 08/29/18 08:42 85 13 08/29/18 08:23 78 76 20 162/69 08/29/18 08:00 98.7 F 08/29/18 05:46 76 22 145/65 08/29/18 05:30 66 24 149/69 08/29/18 05:16 77 20 149/69 08/29/18 05:00 74 24 143/63 08/29/18 04:46 78 26 H 143/63 08/29/18 04:30 78 25 H 149/69 08/29/18 04:16 68 18 138/59 08/29/18 04:00 76 77 74 17 22 143/63 08/29/18 03:46 79 21 141/62 08/29/18 03:30 81 26 H 137/63 08/29/18 03:16 98.9 F 75 15 137/63 08/29/18 03:00 75 19 120/54 08/29/18 02:46 77 22 120/54 08/29/18 02:30 67 27 H 120/54 08/29/18 02:16 71 24 120/54 08/29/18 02:00 69 25 H 123/55 08/29/18 01:46 72 26 H 123/55 08/29/18 01:30 66 20 123/55 08/29/18 01:16 65 18 114/52 08/29/18 01:00 67 22 127/58 08/29/18 00:46 68 25 H 127/58 08/29/18 00:30 71 20 118/52 08/29/18 00:16 72 20 118/52 08/29/18 00:00 75 70 21 115/55 08/28/18 23:46 70 21 118/52 08/28/18 23:30 67 18 118/52 08/28/18 23:17 98.9 F 08/28/18 23:16 68 26 H 117/48 08/28/18 23:00 70 25 H 116/50 08/28/18 22:46 66 20 116/49 08/28/18 22:30 60 18 117/48 08/28/18 22:29 65 117/48 08/28/18 22:16 62 16 116/49 08/28/18 22:00 70 22 139/64 08/28/18 21:46 72 22 139/64 08/28/18 21:30 80 24 157/58 08/28/18 21:16 81 26 H 157/58 08/28/18 21:00 76 26 H 157/58 08/28/18 20:46 84 22 156/66 08/28/18 20:30 81 22 156/66 08/28/18 20:16 88 21 156/66 08/28/18 20:00 71 72 18 157/85 08/28/18 19:46 86 28 H 157/85 08/28/18 19:41 98.5 F 08/28/18 19:30 88 11 L 151/63 08/28/18 19:28 82 18 08/28/18 19:16 79 21 151/63 08/28/18 19:14 75 16 08/28/18 19:10 78 22 151/63 08/28/18 19:00 77 24 151/64 08/28/18 18:46 73 23 151/64 08/28/18 18:30 77 22 152/64 08/28/18 18:16 73 23 152/64 08/28/18 18:00 79 24 160/68 08/28/18 17:46 78 23 160/68 08/28/18 17:38 75 24 160/68 08/28/18 17:30 81 22 147/55 08/28/18 17:16 71 24 147/55 08/28/18 17:00 78 19 148/67 08/28/18 16:46 78 22 148/67 08/28/18 16:30 75 20 143/63 08/28/18 16:16 80 22 143/63 08/28/18 16:00 98.4 F 78 75 27 H 151/58 08/28/18 15:46 80 22 151/58 08/28/18 15:30 80 23 140/67 08/28/18 15:16 77 29 H 140/67 08/28/18 15:00 84 17 148/66 08/28/18 14:46 77 26 H 148/66 08/28/18 14:30 76 26 H 148/66 08/28/18 14:16 82 79 27 H 26 H 129/51 08/28/18 14:06 78 81 25 H 28 H 129/51 08/28/18 14:00 76 26 H 137/59 08/28/18 13:46 76 30 H 137/59 08/28/18 13:30 79 25 H 143/63 08/28/18 13:16 82 31 H 143/63 08/28/18 13:00 81 31 H 143/58 Pulse Ox 08/29/18 12:00 08/29/18 09:31 08/29/18 08:42 08/29/18 08:23 95 08/29/18 08:00 08/29/18 05:46 97 08/29/18 05:30 95 08/29/18 05:16 95 08/29/18 05:00 95 08/29/18 04:46 94 08/29/18 04:30 95 08/29/18 04:16 95 08/29/18 04:00 94 08/29/18 03:46 95 08/29/18 03:30 94 08/29/18 03:16 94 08/29/18 03:00 94 08/29/18 02:46 95 08/29/18 02:30 98 08/29/18 02:16 95 08/29/18 02:00 95 08/29/18 01:46 94 08/29/18 01:30 95 08/29/18 01:16 97 08/29/18 01:00 96 08/29/18 00:46 95 08/29/18 00:30 94 08/29/18 00:16 96 08/29/18 00:00 96 08/28/18 23:46 96 08/28/18 23:30 98 08/28/18 23:17 08/28/18 23:16 96 08/28/18 23:00 97 08/28/18 22:46 97 08/28/18 22:30 96 08/28/18 22:29 96 08/28/18 22:16 95 08/28/18 22:00 94 08/28/18 21:46 91 08/28/18 21:30 90 08/28/18 21:16 91 08/28/18 21:00 93 08/28/18 20:46 93 08/28/18 20:30 92 08/28/18 20:16 94 08/28/18 20:00 95 08/28/18 19:46 95 08/28/18 19:41 08/28/18 19:30 96 08/28/18 19:28 08/28/18 19:16 98 08/28/18 19:14 08/28/18 19:10 96 08/28/18 19:00 95 08/28/18 18:46 96 08/28/18 18:30 96 08/28/18 18:16 96 08/28/18 18:00 96 08/28/18 17:46 96 08/28/18 17:38 95 08/28/18 17:30 96 08/28/18 17:16 96 08/28/18 17:00 95 08/28/18 16:46 95 08/28/18 16:30 95 08/28/18 16:16 95 08/28/18 16:00 95 08/28/18 15:46 95 08/28/18 15:30 93 08/28/18 15:16 95 08/28/18 15:00 96 08/28/18 14:46 96 08/28/18 14:30 100 08/28/18 14:16 99 08/28/18 14:06 94 08/28/18 14:00 95 08/28/18 13:46 95 08/28/18 13:30 95 08/28/18 13:16 95 08/28/18 13:00 95 - Physical Examination General: Other (intubated and sedated) HEENT: Positive: PERRL, Other (ET tube in place) Neck: Positive: neck supple, trachea midline Cardiac: Positive: Reg Rate and Rhythm Lungs: Positive: Decreased Breath Sounds Neuro: Positive: Weakness Abdomen: Positive: Soft, Active Bowel Sounds Skin: Positive: Clear Extremities: Absent: edema - Labs and Meds Cardiac Enzymes 08/29/18 Range/Units 05:25 AST 46 H (5-40) units/L CBC 08/29/18 Range/Units 05:25 WBC 7.1 (4.5-11.0) K/mm3 RBC 2.30 L (3.65-5.03) M/mm3 Hgb 7.0 L (10.1-14.3) gm/dl Hct 20.9 L (30.3-42.9) % Plt Count 242 (140-440) K/mm3 Lymph # 0.8 L (1.2-5.4) K/mm3 [place] # 0.7 (0.0-0.8) K/mm3 Eos # 0.0 (0.0-0.4) K/mm3 Baso # 0.0 (0.0-0.1) K/mm3 Comprehensive Metabolic Panel 08/29/18 Range/Units 05:25 Sodium 144 (137-145) mmol/L Potassium 4.1 (3.6-5.0) mmol/L Chloride 111.1 H (98-107) mmol/L Carbon Dioxide 22 (22-30) mmol/L BUN 55 H (7-17) mg/dL Creatinine 1.8 H (0.7-1.2) mg/dL Glucose 162 H (65-100) mg/dL Calcium 8.7 (8.4-10.2) mg/dL AST 46 H (5-40) units/L ALT < 5 L (7-56) units/L Alkaline Phosphatase 91 (35-129) units/L Total Protein 5.7 L (6.3-8.2) g/dL Albumin 2.1 L (3.9-5) g/dL - Allied health notes Allied health notes reviewed: nursing
--- NOTE | 2018-08-29 13:14 | Progress Note ---
Assessment and Plan 1. Acute kidney injury: Vasomotor CHANDANA. BUN and Creatinine level are improving. Continue IV fluids. Monitor renal function. Renal prognosis is guarded. Avoid nephrotoxic agents. Meds dosage based on GFR. 2. FEN: Hypokalemia, improved. Hypernatremia, improved. Metabolic acidosis, monitor. 3. Acute encephalopathy. 4. Respiratory failure: S/p extubated, on BIPAP. 5. Sepsis: Fungemia. Followed by ID. 6. Hypotension: Improved, will stop Midodrine. 7. Dilated cardiomyopathy with systolic LV dysfunction. 8. Anemia: S/p PRBC. D/w her at the bedside. Subjective Date of service: 08/29/18 Principal diagnosis: Acute hypoxemic hypercapnic Resp failure; AE-COPD; Acute kidney injury Interval history: Patient was seen and examined at the bedside. Objective - Vital Signs Vital signs: Vital Signs - 12hr 08/29/18 08/29/18 08/29/18 01:16 01:30 01:46 Temperature Pulse Rate 65 66 72 Pulse Rate [ Anterior Bilateral Throughout] Pulse Rate [ Apical] Respiratory 18 20 26 H Rate Respiratory Rate [Anterior Bilateral Throughout] Blood Pressure 114/52 123/55 123/55 O2 Sat by Pulse 97 95 94 Oximetry 08/29/18 08/29/18 08/29/18 02:00 02:16 02:30 Temperature Pulse Rate 69 71 67 Pulse Rate [ Anterior Bilateral Throughout] Pulse Rate [ Apical] Respiratory 25 H 24 27 H Rate Respiratory Rate [Anterior Bilateral Throughout] Blood Pressure 123/55 120/54 120/54 O2 Sat by Pulse 95 95 98 Oximetry 08/29/18 08/29/18 08/29/18 02:46 03:00 03:16 Temperature 98.9 F Pulse Rate 77 75 75 Pulse Rate [ Anterior Bilateral Throughout] Pulse Rate [ Apical] Respiratory 22 19 15 Rate Respiratory Rate [Anterior Bilateral Throughout] Blood Pressure 120/54 120/54 137/63 O2 Sat by Pulse 95 94 94 Oximetry 08/29/18 08/29/18 08/29/18 03:30 03:46 04:00 Temperature Pulse Rate 81 79 76 Pulse Rate [ 77 Anterior Bilateral Throughout] Pulse Rate [ 74 Apical] Respiratory 26 H 21 17 Rate Respiratory 22 Rate [Anterior Bilateral Throughout] Blood Pressure 137/63 141/62 143/63 O2 Sat by Pulse 94 95 94 Oximetry 08/29/18 08/29/18 08/29/18 04:16 04:30 04:46 Temperature Pulse Rate 68 78 78 Pulse Rate [ Anterior Bilateral Throughout] Pulse Rate [ Apical] Respiratory 18 25 H 26 H Rate Respiratory Rate [Anterior Bilateral Throughout] Blood Pressure 138/59 149/69 143/63 O2 Sat by Pulse 95 95 94 Oximetry 08/29/18 08/29/18 08/29/18 05:00 05:16 05:30 Temperature Pulse Rate 74 77 66 Pulse Rate [ Anterior Bilateral Throughout] Pulse Rate [ Apical] Respiratory 24 20 24 Rate Respiratory Rate [Anterior Bilateral Throughout] Blood Pressure 143/63 149/69 149/69 O2 Sat by Pulse 95 95 95 Oximetry 08/29/18 08/29/18 08/29/18 05:46 08:00 08:23 Temperature 98.7 F Pulse Rate 76 78 Pulse Rate [ 76 Anterior Bilateral Throughout] Pulse Rate [ Apical] Respiratory 22 Rate Respiratory 20 Rate [Anterior Bilateral Throughout] Blood Pressure 145/65 162/69 O2 Sat by Pulse 97 95 Oximetry 08/29/18 08/29/18 08/29/18 08:42 09:31 12:00 Temperature 99.2 F Pulse Rate 79 Pulse Rate [ 85 Anterior Bilateral Throughout] Pulse Rate [ Apical] Respiratory Rate Respiratory 13 Rate [Anterior Bilateral Throughout] Blood Pressure 158/64 O2 Sat by Pulse Oximetry - General Appearance General appearance: well-developed, well-nourished, appears stated age, other (on BIPAP) EENT: ATNC, PERRL Neck: supple Respiratory: Present: Clear to Ascultation Cardiology: regular, S1S2, no murmurs Gastrointestinal: normoactive bowel sounds, no tenderness, no distended Integumentary: no rash, warm and dry Neurologic: other (able to move extremities) Musculoskeletal: other (1+ edema of both LEs noted) Psychiatric: cooperative - Lab 08/29/18 05:25 08/29/18 05:25 Most recent lab results Calcium 8.7 mg/dL (8.4-10.2) 08/29/18 05:25 Phosphorus 3.90 mg/dL (2.5-4.5) 08/28/18 05:20 Magnesium 2.00 mg/dL (1.7-2.3) 08/28/18 05:20 Medications & Allergies - Medications Allergies/Adverse Reactions: Allergies No Known Allergies Allergy (Unverified 08/15/18 16:49) Home Medications: Home Medications Medication Instructions Recorded Confirmed Last Taken Type Carvedilol 6.25 mg PO BID 08/15/18 08/15/18 Unknown History DULoxetine 60 mg PO QDAY 08/15/18 08/15/18 Unknown History Gabapentin 600 mg PO Q6HR PRN 08/15/18 08/15/18 Unknown History Methylphenidate 5 mg PO TID 08/15/18 08/15/18 Unknown History Morphabond ER 60 mg PO Q12HR 08/15/18 08/15/18 Unknown History Pravastatin Sodium 10 mg PO QDAY 08/15/18 08/15/18 Unknown History Tizanidine HCl 4 mg PO Q12HR 08/15/18 08/15/18 Unknown History oxyCODONE /ACETAMINOPHEN 7.5 - 325 mg PO Q8HR 08/15/18 08/15/18 Unknown History ALBUTEROL Inhaler(NF) 90 mcg IH TID 08/29/18 08/29/18 Unknown History Omeprazole-Bicarb 40-1,100 Cap 40 mg PO DAILY 08/29/18 08/29/18 Unknown History Active Medications: Generic Name Dose Route Start Last Admin Trade Name Freq PRN Reason Stop Dose Admin Acetaminophen 650 mg 08/15/18 22:12 08/24/18 21:30 Tylenol PO 650 mg Q4H PRN Administration Pain MILD(1-3)/Fever >100.5/MONDRAGON Acetaminophen 650 mg 08/16/18 17:01 08/16/18 17:11 Tylenol ND 650 mg Q4H PRN Administration Pain, Mild (1-3) Albuterol 2.5 mg 08/17/18 17:00 Proventil IH Q3HRT PRN Shortness Of Breath Albuterol/Ipratropium 1 ampul 08/20/18 14:00 08/29/18 08:21 Duoneb *Not For Prn Use* IH 1 ampul Q6HRT LAMAR Administration Lipase/Protease/Amylase 1 each 08/17/18 15:55 Pancresam Elizabeth 10,500 Unit FEEDTUBE PRN PRN For Clogged Feeding Tube Arformoterol Tartrate 15 mcg 08/18/18 20:00 08/29/18 08:21 Joby Frederick IH 15 mcg Q12HRT LAMAR Administration Budesonide 0.5 mg 08/18/18 20:00 08/29/18 08:21 Pulmicort IH 0.5 mg Q12HRT LAMAR Administration Carvedilol 3.125 mg 08/26/18 15:19 08/29/18 09:31 Coreg PO 3.125 mg BID LAMAR Administration Duloxetine HCl 60 mg 08/16/18 10:00 08/29/18 09:30 Cymbalta PO 60 mg QDAY LAMAR Administration Enoxaparin Sodium 40 mg 08/29/18 22:00 Lovenox SUB-Q QDAY@2200 LAMAR Famotidine 20 mg 08/29/18 10:00 08/29/18 09:31 Pepcid PO 20 mg BID LAMAR Administration Hydralazine HCl 10 mg 08/19/18 13:59 08/28/18 06:46 Apresoline IV 10 mg Q3H PRN Administration Hydrophilic Ointment 1 applic 08/15/18 21:55 Vaseline Lip Therapy TP Q2HR PRN Dry Lips Norepinephrine 4 mg in 250 mls @ 7.5 mls/hr 08/17/18 20:00 08/26/18 05:42 Levophed Drip 4 Mg/Ns 250 Ml IV 0 mcg/min TITR LAMAR 0 mls/hr Titration Protocol 2 MCG/MIN Sodium Chloride 1,000 mls @ 50 mls/hr 08/22/18 12:00 08/28/18 11:22 Nacl 0.9% 1000 Ml IV 50 mls/hr DIRECT LAMAR Administration Micafungin Sodium 100 mg/ 100 mls @ 100 mls/hr 08/26/18 11:00 08/29/18 10:32 Sodium Chloride IV 100 mls/hr QDAY LAMAR Administration Protocol Metoclopramide HCl 5 mg 08/15/18 22:50 Reglan IV Q6H PRN Nausea And Vomiting Midodrine 5 mg 08/26/18 15:20 08/29/18 08:56 Proamatine PO 5 mg TID LAMAR Administration Ondansetron HCl 4 mg 08/15/18 22:12 Zofran IV Q8H PRN Nausea And Vomiting Quetiapine Fumarate 200 mg 08/22/18 12:00 08/29/18 09:31 Seroquel PO 200 mg BID LAMAR Administration Simple Syrup 15 ml 08/17/18 15:55 Simple Syrup FEEDTUBE PRN PRN Hypoglycemia Simple Syrup 30 ml 08/17/18 15:55 Simple Syrup FEEDTUBE PRN PRN Hypoglycemia Sodium Bicarbonate 325 mg 08/17/18 15:55 Sodium Bicarbonate FEEDTUBE PRN PRN For Clogged Feeding Tube Sodium Chloride 10 ml 08/16/18 10:00 08/29/18 10:45 Sodium Chloride Flush Syringe 10 Ml IV 10 ml BID LAMAR Administration Sodium Chloride 10 ml 08/15/18 22:12 08/25/18 21:35 Sodium Chloride Flush Syringe 10 Ml IV 10 ml PRN PRN Administration LINE FLUSH
[2018-08-29] MEDS: APRESOLINE IV PRN (14:22)
[2018-08-29] MEDS: MORPHINE IV PRN ×2 (15:37→23:07)
--- NOTE | 2018-08-29 17:04 | Progress Note ---
Assessment and Plan Assessment and plan: --Acute hypoxic hypercapnic respiratory failure; intubated on ventilatory support weaning parameters, the patient is alert and awake comfortable no new complaints --Anemia; hemoglobin today 7.4 received 1 unit PRBC , monitor,transfuse as needed --Sepsis; secondary to aspiration pneumonia, --Aspiration pneumonia; Continue antibiotics and antifungal per ID Follow-up chest x-ray; no improvement of pneumonia --Hypertension; continue current antihypertensives --Hypernatremia; free water flushes, improved Closely monitor electrolytes, trending down --Hypokalemia; replace with KCl, follow electrolytes --Severe malnutrition/hypoalbuminemia; Nutrition consults and supportive care --Acute kidney injury; probably secondary to ATN avoid nephrotoxins, Nephrology following ----Acute systolic congestive heart failure; Ejection fraction 25-30%, continue current management Cardiology following --Elevated Transaminases; resolved --DVT prophylaxis; Lovenox Consults and recommendations noted and appreciated Plan of care reviewed with the patient's nurse The high probability of a clinically significant, sudden or life threatening deterioration of the [respiratory, cardiology, ID, renal and metabolic] system(s) required my full and direct attention, intervention and personal management. The aggregate critical care time was [31] minutes. This time is in addition to time spent performing reported procedures but includes the following: [x] Data Review and interpretation [x] Patient assessment and monitoring of vital signs [x] Documentation [x] Medication orders and management History Interval history: Patient seen and examined this morning medical records reviewed Patient intubated on ventilatory support, on weaning parameters Patient is comfortable ,responding appropriatelyigns noted Vital signs noted Hospitalist Physical - Constitutional Vitals: Temp Pulse Resp BP Pulse Ox 99.2 F 79 16 169/89 97 08/29/18 12:00 08/29/18 14:29 08/29/18 14:29 08/29/18 14:22 08/29/18 13:20 General appearance: Present: no acute distress, well-nourished, other (intubated on ventilatory support, sedated) - EENT Eyes: Present: PERRL, EOM intact - Neck Neck: Present: supple, normal ROM - Respiratory Respiratory effort: normal Respiratory: bilateral: diminished, rhonchi, negative: rales, wheezing - Cardiovascular Rhythm: regular Heart Sounds: Present: S1 & S2 - Extremities Extremities: no ischemia Extremity abnormal: edema - Abdominal General gastrointestinal: soft, non-tender, non-distended, normal bowel sounds - Integumentary Integumentary: Present: clear, warm - Psychiatric Psychiatric: cooperative - Neurologic Neurologic: moves all extremities Results - Labs CBC & Chem 7: 08/29/18 05:25 08/29/18 05:25 Labs: Laboratory Last Values WBC 7.1 K/mm3 (4.5-11.0) 08/29/18 05:25 RBC 2.30 M/mm3 (3.65-5.03) L 08/29/18 05:25 Hgb 7.0 gm/dl (10.1-14.3) L 08/29/18 05:25 Hct 20.9 % (30.3-42.9) L 08/29/18 05:25 MCV 91 fl (79-97) 08/29/18 05:25 MCH 30 pg (28-32) 08/29/18 05:25 MCHC 33 % (30-34) 08/29/18 05:25 RDW 21.0 % (13.2-15.2) H 08/29/18 05:25 Plt Count 242 K/mm3 (140-440) 08/29/18 05:25 Lymph % (Auto) 11.5 % (13.4-35.0) L 08/29/18 05:25 [place] % (Auto) 9.2 % (0.0-7.3) H 08/29/18 05:25 Eos % (Auto) 0.0 % (0.0-4.3) 08/29/18 05:25 Baso % (Auto) 0.5 % (0.0-1.8) 08/29/18 05:25 Lymph # 0.8 K/mm3 (1.2-5.4) L 08/29/18 05:25 [place] # 0.7 K/mm3 (0.0-0.8) 08/29/18 05:25 Eos # 0.0 K/mm3 (0.0-0.4) 08/29/18 05:25 Baso # 0.0 K/mm3 (0.0-0.1) 08/29/18 05:25 Add Manual Diff Complete 08/24/18 08:30 Total Counted 100 08/24/18 08:30 Seg Neutrophils % 78.8 % (40.0-70.0) H 08/29/18 05:25 Seg Neuts % (Manual) 93.0 % (40.0-70.0) H 08/24/18 08:30 Band Neutrophils % 0 % 08/24/18 08:30 Lymphocytes % (Manual) 6.0 % (13.4-35.0) L 08/24/18 08:30 Reactive Lymphs % (Man) 0 % 08/24/18 08:30 Monocytes % (Manual) 1.0 % (0.0-7.3) 08/24/18 08:30 Eosinophils % (Manual) 0 % (0.0-4.3) 08/24/18 08:30 Basophils % (Manual) 0 % (0.0-1.8) 08/24/18 08:30 Metamyelocytes % 0 % 08/24/18 08:30 Myelocytes % 0 % 08/24/18 08:30 Promyelocytes % 0 % 08/24/18 08:30 Blast Cells % 0 % 08/24/18 08:30 Nucleated RBC % Not Reportable 08/24/18 08:30 Seg Neutrophils # 5.6 K/mm3 (1.8-7.7) 08/29/18 05:25 Seg Neutrophils # Man 11.9 K/mm3 (1.8-7.7) H 08/24/18 08:30 Band Neutrophils # 0.0 K/mm3 08/24/18 08:30 Abs Lymphs (Manual) 3262 cells/uL (850-3900) 08/19/18 14:32 Lymphocytes # (Manual) 0.8 K/mm3 (1.2-5.4) L 08/24/18 08:30 Abs React Lymphs (Man) 0.0 K/mm3 08/24/18 08:30 Monocytes # (Manual) 0.1 K/mm3 (0.0-0.8) 08/24/18 08:30 Eosinophils # (Manual) 0.0 K/mm3 (0.0-0.4) 08/24/18 08:30 Basophils # (Manual) 0.0 K/mm3 (0.0-0.1) 08/24/18 08:30 Metamyelocytes # 0.0 K/mm3 08/24/18 08:30 Myelocytes # 0.0 K/mm3 08/24/18 08:30 Promyelocytes # 0.0 K/mm3 08/24/18 08:30 Blast Cells # 0.0 K/mm3 08/24/18 08:30 WBC Morphology Not Reportable 08/24/18 08:30 Hypersegmented Neuts Not Reportable 08/24/18 08:30 Hyposegmented Neuts Not Reportable 08/24/18 08:30 Hypogranular Neuts Not Reportable 08/24/18 08:30 Smudge Cells Not Reportable 08/24/18 08:30 Toxic Granulation Not Reportable 08/24/18 08:30 Toxic Vacuolation Not Reportable 08/24/18 08:30 Dohle Bodies Not Reportable 08/24/18 08:30 Pelger-Huet Anomaly Not Reportable 08/24/18 08:30 Rosy Rods Not Reportable 08/24/18 08:30 Platelet Estimate Consistent w auto 08/24/18 08:30 Clumped Platelets Not Reportable 08/24/18 08:30 Plt Clumps, EDTA Not Reportable 08/24/18 08:30 Large Platelets Not Reportable 08/24/18 08:30 Giant Platelets Not Reportable 08/24/18 08:30 Platelet Satelliting Not Reportable 08/24/18 08:30 Plt Morphology Comment Not Reportable 08/24/18 08:30 RBC Morphology Not Reportable 08/24/18 08:30 Dimorphic RBCs Not Reportable 08/24/18 08:30 Polychromasia Not Reportable 08/24/18 08:30 Hypochromasia Not Reportable 08/24/18 08:30 Poikilocytosis Not Reportable 08/24/18 08:30 Anisocytosis 1+ 08/24/18 08:30 Microcytosis Not Reportable 08/24/18 08:30 Macrocytosis Not Reportable 08/24/18 08:30 Spherocytes Not Reportable 08/24/18 08:30 Pappenheimer Bodies Not Reportable 08/24/18 08:30 Sickle Cells Not Reportable 08/24/18 08:30 Target Cells Not Reportable 08/24/18 08:30 Tear Drop Cells Not Reportable 08/24/18 08:30 Ovalocytes Not Reportable 08/24/18 08:30 Helmet Cells Not Reportable 08/24/18 08:30 Hernandez-[place] Bodies Not Reportable 08/24/18 08:30 Lostant Rings Not Reportable 08/24/18 08:30 Bertha Cells Not Reportable 08/24/18 08:30 Bite Cells Not Reportable 08/24/18 08:30 Crenated Cell Not Reportable 08/24/18 08:30 Elliptocytes Not Reportable 08/24/18 08:30 Acanthocytes (Spur) Not Reportable 08/24/18 08:30 Rouleaux Not Reportable 08/24/18 08:30 Hemoglobin C Crystals Not Reportable 08/24/18 08:30 Schistocytes Not Reportable 08/24/18 08:30 Malaria parasites Not Reportable 08/24/18 08:30 Ceasar Bodies Not Reportable 08/24/18 08:30 Hem Pathologist Commnt No 08/24/18 08:30 D-Dimer 2768.33 ng/mlDDU (0-234) H 08/15/18 18:31 Heparin Anti-Xa, Unfract Negative (Negative) 08/22/18 15:29 POC ABG pH 7.417 (7.35-7.45) 08/28/18 22:31 POC ABG pCO2 34.4 (35-45) L 08/28/18 22:31 POC ABG pO2 67 (80-105) L 08/28/18 22:31 POC ABG HCO3 22.1 (22-26 mml/L) 08/28/18 22:31 POC ABG Total CO2 23 (23-27mmol/L) 08/28/18 22:31 POC ABG O2 Sat 94 08/28/18 22:31 POC ABG Base Excess -2 ((-2) - (+3)mmol/L) 08/28/18 22:31 VBG pH 7.187 (7.320-7.420) L* 08/15/18 18:19 FiO2 35 % 08/28/18 22:31 Sodium 144 mmol/L (137-145) 08/29/18 05:25 Potassium 4.1 mmol/L (3.6-5.0) 08/29/18 05:25 Chloride 111.1 mmol/L (98-107) H 08/29/18 05:25 Carbon Dioxide 22 mmol/L (22-30) 08/29/18 05:25 Anion Gap 15 mmol/L 08/29/18 05:25 BUN 55 mg/dL (7-17) H 08/29/18 05:25 Creatinine 1.8 mg/dL (0.7-1.2) H 08/29/18 05:25 Estimated GFR 28 ml/min 08/29/18 05:25 BUN/Creatinine Ratio 31 % 08/29/18 05:25 Glucose 162 mg/dL (65-100) H 08/29/18 05:25 POC Glucose 143 (70-105) H 08/28/18 23:33 Hemoglobin A1c 6.4 % (4-6) H 08/15/18 23:09 Lactic Acid 1.20 mmol/L (0.7-2.0) 08/22/18 15:29 Calcium 8.7 mg/dL (8.4-10.2) 08/29/18 05:25 Phosphorus 3.90 mg/dL (2.5-4.5) 08/28/18 05:20 Magnesium 2.00 mg/dL (1.7-2.3) 08/28/18 05:20 Total Bilirubin 0.20 mg/dL (0.1-1.2) 08/29/18 05:25 AST 46 units/L (5-40) H 08/29/18 05:25 ALT < 5 units/L (7-56) L 08/29/18 05:25 Alkaline Phosphatase 91 units/L (35-129) 08/29/18 05:25 Troponin T 0.317 ng/mL (0.00-0.029) H* D 08/18/18 13:39 C-Reactive Protein 5.00 mg/dL (0.00-1.30) H 08/25/18 05:20 Total Protein 5.7 g/dL (6.3-8.2) L 08/29/18 05:25 Albumin 2.1 g/dL (3.9-5) L 08/29/18 05:25 Albumin/Globulin Ratio 0.6 % 08/29/18 05:25 Triglycerides 197 mg/dL (2-149) H 08/22/18 06:45 Cholesterol 87 mg/dL (50-199) 08/15/18 18:31 LDL Cholesterol Direct 4 mg/dL (50-130) L 08/15/18 18:31 HDL Cholesterol 10 mg/dL (40-59) L 08/15/18 18:31 Cholesterol/HDL Ratio 8.70 % 08/15/18 18:31 Total Cortisol 21.4 mcg/dL () 08/25/18 08:52 Urine Color Rosemarie (Yellow) 08/15/18 19:15 Urine Turbidity Cloudy (Clear) 08/15/18 19:15 Urine pH 5.0 (5.0-7.0) 08/15/18 19:15 Ur Specific [place] 1.025 (1.003-1.030) 08/15/18 19:15 Urine Protein 30 mg/dl mg/dL (Negative) 08/15/18 19:15 Urine Glucose (UA) Neg mg/dL (Negative) 08/15/18 19:15 Urine Ketones Neg mg/dL (Negative) 08/15/18 19:15 Urine Blood Mod (Negative) 08/15/18 19:15 Urine Nitrite Neg (Negative) 08/15/18 19:15 Urine Bilirubin Neg (Negative) 08/15/18 19:15 Urine Urobilinogen 2.0 mg/dL (<2.0) 08/15/18 19:15 Ur Leukocyte Esterase Mod (Negative) 08/15/18 19:15 Urine WBC (Auto) 17.0 /HPF (0.0-6.0) H 08/15/18 19:15 Urine RBC (Auto) 5.0 /HPF (0.0-6.0) 08/15/18 19:15 Urine WBC Clumps 2+ /HPF 08/15/18 19:15 Amorphous Crystals 1+ 08/15/18 19:15 Hyaline Casts 54 /LPF 08/15/18 19:15 Granular Casts 14 /LPF 08/15/18 19:15 Urine Mucus Few /HPF 08/15/18 19:15 Salicylates < 0.3 mg/dL (2.8-20.0) L 08/15/18 19:14 Urine Opiates Screen Presumptive positive 08/15/18 19:15 Urine Methadone Screen Presumptive negative 08/15/18 19:15 Acetaminophen < 5.0 ug/mL (10.0-30.0) L 08/15/18 19:14 Ur Barbiturates Screen Presumptive negative 08/15/18 19:15 Ur Phencyclidine Scrn Presumptive negative 08/15/18 19:15 Ur Amphetamines Screen Presumptive negative 08/15/18 19:15 U Benzodiazepines Scrn Presumptive negative 08/15/18 19:15 Urine Cocaine Screen Presumptive negative 08/15/18 19:15 U Marijuana (THC) Screen Presumptive negative 08/15/18 19:15 Drugs of Abuse Note Disclamer 08/15/18 19:15 Heparin-induced Plt Ab Negative (Negative) 08/22/18 15:29 UF Heparin High Dose 0 % Release 08/22/18 15:29 NAZIA UFH Low Dose 0.1 0 % Release 08/22/18 15:29 NAZIA UFH Low Dose 0.5 0 % Release 08/22/18 15:29 Lymph Enumerat CD4/CD8 1.98 (0.86-5.00) 08/19/18 14:32 % CD3 Cells 44 % (57-85) L 08/19/18 14:32 Absolute CD3 Count 1451 cells/uL (840-3060) 08/19/18 14:32 % CD4 Cells 30 % (30-61) 08/19/18 14:32 Absolute CD4 Count 1004 cells/uL (490-1740) 08/19/18 14:32 % CD8 Cells 15 % (12-42) 08/19/18 14:32 Absolute CD8 Count 508 cells/uL (180-1170) 08/19/18 14:32 % CD19 Cells 41 % (6-29) H 08/19/18 14:32 Absolute CD19 Count 1290 cells/uL (110-660) H 08/19/18 14:32 C. difficile Toxin A&B Negative (Negative) 08/19/18 14:00 HIV 1&2 Antibody Rapid Non react (Non React) 08/18/18 13:39 HIV P24 Antigen Non react (Non React) 08/18/18 13:39 Blood Type O POSITIVE 08/25/18 08:52 Antibody Screen Negative 08/25/18 08:52 Crossmatch See Detail 08/25/18 08:52 Active Medications - Current Medications Current Medications: Generic Name Dose Route Start Last Admin Trade Name Freq PRN Reason Stop Dose Admin Acetaminophen 650 mg 08/15/18 22:12 08/24/18 21:30 Tylenol PO 650 mg Q4H PRN Administration Pain MILD(1-3)/Fever >100.5/MONDRAGON Acetaminophen 650 mg 08/16/18 17:01 08/16/18 17:11 Tylenol MT 650 mg Q4H PRN Administration Pain, Mild (1-3) Albuterol 2.5 mg 08/17/18 17:00 Proventil IH Q3HRT PRN Shortness Of Breath Albuterol/Ipratropium 1 ampul 08/20/18 14:00 08/29/18 14:18 Duoneb *Not For Prn Use* IH 1 ampul Q6HRT LAMAR Administration Lipase/Protease/Amylase 1 each 08/17/18 15:[address] 10,500 Unit FEEDTUBE PRN PRN For Clogged Feeding Tube Arformoterol Tartrate 15 mcg 08/18/18 20:00 08/29/18 08:21 Brovana Nebu IH 15 mcg Q12HRT LAMAR Administration Budesonide 0.5 mg 08/18/18 20:00 08/29/18 08:21 Pulmicort IH 0.5 mg Q12HRT LAMAR Administration Carvedilol 3.125 mg 08/26/18 15:19 08/29/18 09:31 Coreg PO 3.125 mg BID LAMAR Administration Duloxetine HCl 60 mg 08/16/18 10:00 08/29/18 09:30 Cymbalta PO 60 mg QDAY LAMAR Administration Enoxaparin Sodium 40 mg 08/29/18 22:00 Lovenox SUB-Q QDAY@2200 LAMAR Famotidine 20 mg 08/29/18 10:00 08/29/18 09:31 Pepcid PO 20 mg BID LAMAR Administration Hydralazine HCl 10 mg 08/19/18 13:59 08/29/18 14:22 Apresoline IV 10 mg Q3H PRN Administration Hydrophilic Ointment 1 applic 08/15/18 21:55 Vaseline Lip Therapy TP Q2HR PRN Dry Lips Norepinephrine 4 mg in 250 mls @ 7.5 mls/hr 08/17/18 20:00 08/26/18 05:42 Levophed Drip 4 Mg/Ns 250 Ml IV 0 mcg/min TITR LAMAR 0 mls/hr Titration Protocol 2 MCG/MIN Sodium Chloride 1,000 mls @ 50 mls/hr 08/22/18 12:00 08/28/18 11:22 Nacl 0.9% 1000 Ml IV 50 mls/hr DIRECT LAMAR Administration Micafungin Sodium 100 mg/ 100 mls @ 100 mls/hr 08/26/18 11:00 08/29/18 10:32 Sodium Chloride IV 100 mls/hr QDAY LAMAR Administration Protocol Metoclopramide HCl 5 mg 08/15/18 22:50 Reglan IV Q6H PRN Nausea And Vomiting Midodrine 5 mg 08/26/18 15:20 08/29/18 15:32 Proamatine PO Not Given TID LAMAR Morphine Sulfate 1 mg 08/29/18 15:29 08/29/18 15:37 Morphine IV 1 mg Q4H PRN Administration Pain, Moderate (4-6) Ondansetron HCl 4 mg 08/15/18 22:12 Zofran IV Q8H PRN Nausea And Vomiting Quetiapine Fumarate 200 mg 08/22/18 12:00 08/29/18 09:31 Seroquel PO 200 mg BID LAMAR Administration Simple Syrup 15 ml 08/17/18 15:55 Simple Syrup FEEDTUBE PRN PRN Hypoglycemia Simple Syrup 30 ml 08/17/18 15:55 Simple Syrup FEEDTUBE PRN PRN Hypoglycemia Sodium Bicarbonate 325 mg 08/17/18 15:55 Sodium Bicarbonate FEEDTUBE PRN PRN For Clogged Feeding Tube Sodium Chloride 10 ml 08/16/18 10:00 08/29/18 10:45 Sodium Chloride Flush Syringe 10 Ml IV 10 ml BID LMAAR Administration Sodium Chloride 10 ml 08/15/18 22:12 08/25/18 21:35 Sodium Chloride Flush Syringe 10 Ml IV 10 ml PRN PRN Administration LINE FLUSH Nutrition/Malnutrition Assess - Dietary Evaluation Nutrition/Malnutrition Findings: Nutrition Notes Start: 08/17/18 13:57 Freq: Status: Active Protocol: Document 08/24/18 10:51 CP (Rec: 08/24/18 10:59 CP [id number]) Co-Sign 08/24/18 10:51 LP Nutrition Notes Initial or Follow up Reassessment Current Diagnosis Acute Kidney Injury,COPD, Diabetes,Sepsis,Hypertension, Respiratory Failure, Hyperlipidemia Other Pertinent Diagnosis AMS, hypokalemia, NSTEMI, encephalopathy, pneu, hypernatermia, shock liver Current Diet Vital AF 1.2 at 60mL/hr Labs/Tests BUN 64 Cr 2 BG 149 Pertinent Medications Reviewed Height 5 ft 7 in Weight 95.3 kg [place] Body Weight (kg) 61.36 BMI 32.9 Subjective/Other Information Per nurse, TF is stable and Na is WNL. #1 Nutrition Diagnosis Inadequate oral intake Diagnosis Progress(for reassessment Continues documentation) Is patient on ventilator? Yes Is Patient Ambulatory and/or Out of Bed No REE-([facility]-confined to bed) 1824.132 Kcal/Kg value to use for calculation 16 Approximate Energy Requirements Using 1525 kcal/Kg Calculation Used for Recommendations [facility] Additional Notes Protein needs: (2g/kg IBW) 122g/day Fluid needs: 1ml/kcal Nutrition Intervention Change Diet Order: Continue current Nutrition Support: Vital AF 1.2 at 60mL/hr with 150mL flush q4h. Kcal 1,728 Protein (gm) 108 Fluid (mL) 1,168 Goal #1 Tolerate TF Goal #2 Continue to meet at least 75% of nutrient needs via TF Anticipated Discharge Needs: Unable to determine at this time Follow-Up By: 08/31/18 Additional Comments F/U: TF tolerance
--- NOTE | 2018-08-29 17:14 | Event Note ---
Date: 08/29/18 Patient was extubated this afternoon, on BiPAp Has mild agitation.Swallow eval diet as tolerated Low-dose Ativan oral versus IV for agitation Request physical therapy and occupational therapy rehabilitation Continue current management Plan of care is reviewed with the patient's nurse,
[2018-08-29] MEDS: APRESOLINE IV SCH ×2 (17:36→22:53)
[2018-08-29] MEDS: ATIVAN IV PRN (17:38)
--- NOTE | 2018-08-29 19:05 | Progress Note ---
Assessment and Plan Cultures: 08/15/2018 blood culture: Camryn glabrata 1 of 4 08/15/2018 sputum culture: MSSA and Escherichia coli, wade susceptible 08/18/2018 blood culture: no growth 08/18/2018 urine culture: neg 08/22/2018 blood culture: no growth 08/25/2018 blood culture: no growth today A/P: 68-year-old female with COPD, arthritis, history of multiple spinal surgeries was brought to the emergency room on 08/15/2018 with altered mental status: 1) Sepsis with septic shock: resolved. 2) Camryn glabrata fungemia: Etiology is unclear. Patient without any history of indwelling PICC line, TPN or immunocompromised status. reporting severe explosive diarrhea, N/V before admission after taken 4 days of amoxicillin for dental implant on 07/29/2018 and had a EGD / colonoscopy on 08/08/[address] [facility] [address] Alcantara. I reviewed report - mild chronic gastritis, focal intestinal metaplasia, squamocolumnar mucosa with mild reflux-type changes, and tubular adenoma. -s/p fluconazole 800 mg loading dose then micafungin, s/p amphotericin D6 on 08/26 -serum Crypto negative. -08/15/2018 blood culture: Camryn glabrata -08/18/2018 blood culture: no growth today -CTA chest showed limited study due to respiratory motion artifact. No evidence of pulmonary embolism. Abnormal bilateral lung consolidation which may represent pulmonary edema or pneumonia. Mild cardiomegaly. Indeterminant mediastinal lymph nodes. -CT abdomen showed extensive bilateral lower lobe pulmonary infiltrates, rectal tube and Dodge catheter noted. NG tube at gastric antrum. Left hip prosthesis Extensive degenerative changes noted lumbar spine -TTE EF 25-30% no vegetations -HIV neg/ CD4 1004 -reviewed CT chest abd done 01/05/2019 showed cholecystectomy, mild fatty liver, postoperative changes of lumbar laminectomy with non specific fluid, 9 mm LLL pulmonary nodule which was compared to previous CT and was stable. -CRP 10-->5 3) Acute renal failure: On admission: Nephrology following. 4) Bilateral pneumonia: DDx aspiration pneumonia v/s CAP. Causing acute respiratory failure. Chest x-ray shows reticular nodular infiltrates, some of these appear to be chronic and would also present in 2011. CTA chest showed limited study due to respiratory motion artifact. No evidence of pulmonary embolism. Abnormal bilateral lung consolidation which may represent pulmonary edema or pneumonia. Mild cardiomegaly. Indeterminant mediastinal lymph nodes. -Sputum culture 08/15 MSSA and Escherichia coli, wade susceptible. completed abx. 5) Right maxillary sinusitis: received empiric abx. 6) Acute encephalopathy: Likely multifactorial. CT head unremarkable for acute intracranial process. currently alert follows commands intermittently. 7) New onset cardiomyopathy, LVEF 25-30% this admission. 8) H/O left hip prosthesis ? XR no effusion. CT no enhancement Recs: continue micafungin IV ending 09/01/2018 completed Cefazolin today Brando Pradhan MD [facility], [place], [facility] C: [phone] O: [phone] F: [phone] Subjective Date of service: 08/29/18 Principal diagnosis: Acute hypoxemic hypercapnic Resp failure; AE-COPD; Acute kidney injury Interval history: No fever. On high flow oxygen. Objective - Exam Narrative Exam: Physical Exam: Constitutional: awake, alert, on high flow oxygen. Head, Ears, Nose: Normocephalic, atraumatic. External ears, nose normal Eyes: Conjunctivae/corneas clear. No icterus. No ptosis. Neck: Supple, no meningeal signs Oral: mucosa dry, no ulcers Cardiovascular: S1, S2 normal. Respiratory: Good air entry, clear to auscultation bilaterally GI: Soft, non-tender; bowel sounds normal. No peritoneal signs Musculoskeletal: No pedal edema, no cyanosis. Skin: No rash or abscess Hem/Lymphatic: No palpable cervical or supraclavicular nodes. No lymphangitis Psych: no agitation Neurological: awake, confused - Constitutional Vitals: Vital Signs Temp Pulse Resp BP Pulse Ox 99.2 F 99 H 16 177/89 90 08/29/18 12:00 08/29/18 17:36 08/29/18 17:16 08/29/18 17:36 08/29/18 17:16 Temperature -Last 24 Hours Temperature 99.2 F Temperature 98.7 F Temperature 98.9 F Temperature 98.9 F Temperature 98.5 F - Labs CBC & Chem 7: 08/29/18 05:25 08/29/18 05:25 Labs: Abnormal lab results 08/28/18 08/28/18 08/29/18 Range/Units 22:31 23:33 05:25 RBC (3.65-5.03) M/mm3 Hgb (10.1-14.3) gm/dl Hct (30.3-42.9) % RDW (13.2-15.2) % Lymph % (Auto) (13.4-35.0) % Gregg % (Auto) (0.0-7.3) % Lymph # (1.2-5.4) K/mm3 Seg Neutrophils % (40.0-70.0) % POC ABG pCO2 34.4 L (35-45) POC ABG pO2 67 L (80-105) Chloride 111.1 H (98-107) mmol/L BUN 55 H (7-17) mg/dL Creatinine 1.8 H (0.7-1.2) mg/dL Glucose 162 H (65-100) mg/dL POC Glucose 143 H (70-105) AST 46 H (5-40) units/L ALT < 5 L (7-56) units/L Total Protein 5.7 L (6.3-8.2) g/dL Albumin 2.1 L (3.9-5) g/dL 08/29/18 Range/Units 05:25 RBC 2.30 L (3.65-5.03) M/mm3 Hgb 7.0 L (10.1-14.3) gm/dl Hct 20.9 L (30.3-42.9) % RDW 21.0 H (13.2-15.2) % Lymph % (Auto) 11.5 L (13.4-35.0) % Gregg % (Auto) 9.2 H (0.0-7.3) % Lymph # 0.8 L (1.2-5.4) K/mm3 Seg Neutrophils % 78.8 H (40.0-70.0) % POC ABG pCO2 (35-45) POC ABG pO2 (80-105) Chloride (98-107) mmol/L BUN (7-17) mg/dL Creatinine (0.7-1.2) mg/dL Glucose (65-100) mg/dL POC Glucose (70-105) AST (5-40) units/L ALT (7-56) units/L Total Protein (6.3-8.2) g/dL Albumin (3.9-5) g/dL
[2018-08-29] MEDS: LOVENOX SUB-Q SCH (22:53)
[2018-08-30] MEDS: ATIVAN IV PRN (00:35)
[2018-08-30] MEDS: DUONEB *Not for PRN Use IH SCH ×4 (02:38→19:22)
[2018-08-30] MEDS: MORPHINE IV PRN ×4 (07:00→23:42)
--- NOTE | 2018-08-30 07:06 | Progress Note ---
Assessment and Plan 1. Acute kidney injury: Vasomotor CHANDANA. BUN and Creatinine level plateaued. Monitor renal function. Renal prognosis is guarded. Avoid nephrotoxic agents. Meds dosage based on GFR. 2. FEN: Hypokalemia, improved. Hypernatremia, monitor. Metabolic acidosis, monitor. 3. Bladder retention: S/p manrique catheter. 4. Acute encephalopathy. 5. Respiratory failure: S/p extubated, on BIPAP. 6. Sepsis: Fungemia. Followed by ID. 7. Hypotension: Improved. 8. Dilated cardiomyopathy with systolic LV dysfunction. 9. Anemia: S/p PRBC. Subjective Date of service: 08/30/18 Principal diagnosis: Acute hypoxemic hypercapnic Resp failure; AE-COPD; Acute kidney injury Interval history: Patient was seen and examined at the bedside. Objective - Vital Signs Vital signs: Vital Signs - 12hr 08/29/18 08/29/18 08/29/18 19:16 19:30 19:41 Temperature Pulse Rate 107 H 104 H Pulse Rate [ 106 H Anterior Bilateral Throughout] Pulse Rate [ Apical] Respiratory 43 H 29 H Rate Respiratory 24 Rate [Anterior Bilateral Throughout] Blood Pressure 151/70 151/70 O2 Sat by Pulse 96 96 96 Oximetry 08/29/18 08/29/18 08/29/18 19:46 19:56 20:00 Temperature 98.9 F Pulse Rate 108 H 104 H Pulse Rate [ 108 H Anterior Bilateral Throughout] Pulse Rate [ 114 H Apical] Respiratory 19 20 Rate Respiratory 24 Rate [Anterior Bilateral Throughout] Blood Pressure 151/70 151/70 O2 Sat by Pulse 98 98 Oximetry 08/29/18 08/29/18 08/29/18 20:14 20:16 20:30 Temperature Pulse Rate 108 H 108 H 107 H Pulse Rate [ Anterior Bilateral Throughout] Pulse Rate [ Apical] Respiratory 25 H 44 H 37 H Rate Respiratory Rate [Anterior Bilateral Throughout] Blood Pressure 176/90 176/90 176/90 O2 Sat by Pulse 97 97 94 Oximetry 08/29/18 08/29/18 08/29/18 20:46 21:00 21:16 Temperature Pulse Rate 106 H 106 H 106 H Pulse Rate [ Anterior Bilateral Throughout] Pulse Rate [ Apical] Respiratory 34 H 27 H 22 Rate Respiratory Rate [Anterior Bilateral Throughout] Blood Pressure 151/85 151/85 168/81 O2 Sat by Pulse 94 95 97 Oximetry 08/29/18 08/29/18 08/29/18 21:30 21:46 22:00 Temperature Pulse Rate 107 H 107 H 106 H Pulse Rate [ Anterior Bilateral Throughout] Pulse Rate [ Apical] Respiratory 20 22 31 H Rate Respiratory Rate [Anterior Bilateral Throughout] Blood Pressure 168/81 168/81 168/81 O2 Sat by Pulse 97 97 97 Oximetry 08/29/18 08/29/18 08/29/18 22:16 22:30 22:46 Temperature Pulse Rate 105 H 104 H 103 H Pulse Rate [ Anterior Bilateral Throughout] Pulse Rate [ Apical] Respiratory 34 H 21 35 H Rate Respiratory Rate [Anterior Bilateral Throughout] Blood Pressure 160/40 160/40 171/81 O2 Sat by Pulse 97 98 97 Oximetry 08/29/18 08/29/18 08/29/18 22:53 22:54 23:00 Temperature Pulse Rate 105 H 104 H 109 H Pulse Rate [ Anterior Bilateral Throughout] Pulse Rate [ Apical] Respiratory 17 Rate Respiratory Rate [Anterior Bilateral Throughout] Blood Pressure 171/81 171/81 171/81 O2 Sat by Pulse 96 Oximetry 08/29/18 08/29/18 08/29/18 23:12 23:16 23:30 Temperature 99.5 F Pulse Rate 104 H 109 H Pulse Rate [ Anterior Bilateral Throughout] Pulse Rate [ Apical] Respiratory 23 16 Rate Respiratory Rate [Anterior Bilateral Throughout] Blood Pressure 158/86 158/86 O2 Sat by Pulse 96 96 Oximetry 08/29/18 08/29/18 08/30/18 23:36 23:46 00:00 Temperature Pulse Rate 107 H 109 H 111 H Pulse Rate [ Anterior Bilateral Throughout] Pulse Rate [ 100 H Apical] Respiratory 16 21 38 H Rate Respiratory Rate [Anterior Bilateral Throughout] Blood Pressure 135/85 147/72 O2 Sat by Pulse 96 96 98 Oximetry 08/30/18 08/30/18 08/30/18 00:16 00:30 00:46 Temperature Pulse Rate 110 H 111 H 110 H Pulse Rate [ Anterior Bilateral Throughout] Pulse Rate [ Apical] Respiratory 13 32 H 39 H Rate Respiratory Rate [Anterior Bilateral Throughout] Blood Pressure 135/85 135/85 136/117 O2 Sat by Pulse 99 99 99 Oximetry 08/30/18 08/30/18 08/30/18 01:00 01:16 01:30 Temperature Pulse Rate 107 H 105 H 106 H Pulse Rate [ Anterior Bilateral Throughout] Pulse Rate [ Apical] Respiratory 28 H 44 H 46 H Rate Respiratory Rate [Anterior Bilateral Throughout] Blood Pressure 136/117 161/85 161/85 O2 Sat by Pulse 98 99 99 Oximetry 08/30/18 08/30/18 08/30/18 01:46 02:00 02:16 Temperature Pulse Rate 105 H 104 H 103 H Pulse Rate [ Anterior Bilateral Throughout] Pulse Rate [ Apical] Respiratory 35 H 21 45 H Rate Respiratory Rate [Anterior Bilateral Throughout] Blood Pressure 156/74 156/74 165/67 O2 Sat by Pulse 97 98 97 Oximetry 08/30/18 08/30/18 08/30/18 02:30 02:38 02:46 Temperature Pulse Rate 104 H 101 H Pulse Rate [ 103 H Anterior Bilateral Throughout] Pulse Rate [ Apical] Respiratory 42 H 42 H Rate Respiratory 22 Rate [Anterior Bilateral Throughout] Blood Pressure 165/67 165/67 O2 Sat by Pulse 98 100 Oximetry 08/30/18 08/30/18 08/30/18 02:53 03:00 03:16 Temperature Pulse Rate 100 H 97 H Pulse Rate [ 105 H Anterior Bilateral Throughout] Pulse Rate [ Apical] Respiratory 52 H 37 H Rate Respiratory 22 Rate [Anterior Bilateral Throughout] Blood Pressure 165/67 155/78 O2 Sat by Pulse 99 99 Oximetry 08/30/18 08/30/18 03:20 04:00 Temperature 98.4 F Pulse Rate 99 H Pulse Rate [ Anterior Bilateral Throughout] Pulse Rate [ Apical] Respiratory 36 H Rate Respiratory Rate [Anterior Bilateral Throughout] Blood Pressure 158/82 O2 Sat by Pulse 95 Oximetry - General Appearance General appearance: well-developed, appears stated age, other (on BIPAP) EENT: ATNC Neck: supple Respiratory: Present: Other (coarse breath sounds) Cardiology: regular, S1S2, no murmurs Gastrointestinal: normoactive bowel sounds, no tenderness, no distended Integumentary: no rash, warm and dry Neurologic: other (stuporous) Musculoskeletal: other (trace LE edema noted) - Lab 08/30/18 09:33 08/30/18 09:33 Most recent lab results Calcium 8.7 mg/dL (8.4-10.2) 08/29/18 05:25 Phosphorus 3.90 mg/dL (2.5-4.5) 08/28/18 05:20 Magnesium 2.00 mg/dL (1.7-2.3) 08/28/18 05:20 Medications & Allergies - Medications Allergies/Adverse Reactions: Allergies No Known Allergies Allergy (Unverified 08/15/18 16:49) Home Medications: Home Medications Medication Instructions Recorded Confirmed Last Taken Type Carvedilol 6.25 mg PO BID 08/15/18 08/15/18 Unknown History DULoxetine 60 mg PO QDAY 08/15/18 08/15/18 Unknown History Gabapentin 600 mg PO Q6HR PRN 08/15/18 08/15/18 Unknown History Methylphenidate 5 mg PO TID 08/15/18 08/15/18 Unknown History Morphabond ER 60 mg PO Q12HR 08/15/18 08/15/18 Unknown History Pravastatin Sodium 10 mg PO QDAY 08/15/18 08/15/18 Unknown History Tizanidine HCl 4 mg PO Q12HR 08/15/18 08/15/18 Unknown History oxyCODONE /ACETAMINOPHEN 7.5 - 325 mg PO Q8HR 08/15/18 08/15/18 Unknown History ALBUTEROL Inhaler(NF) 90 mcg IH TID 08/29/18 08/29/18 Unknown History Omeprazole-Bicarb 40-1,100 Cap 40 mg PO DAILY 08/29/18 08/29/18 Unknown History Active Medications: Generic Name Dose Route Start Last Admin Trade Name Freq PRN Reason Stop Dose Admin Acetaminophen 650 mg 08/15/18 22:12 08/24/18 21:30 Tylenol PO 650 mg Q4H PRN Administration Pain MILD(1-3)/Fever >100.5/MONDRAGON Acetaminophen 650 mg 08/16/18 17:01 08/16/18 17:11 Tylenol NC 650 mg Q4H PRN Administration Pain, Mild (1-3) Albuterol 2.5 mg 08/17/18 17:00 Proventil IH Q3HRT PRN Shortness Of Breath Albuterol/Ipratropium 1 ampul 08/20/18 14:00 08/30/18 02:38 Duoneb *Not For Prn Use* IH 1 ampul Q6HRT LAMAR Administration Lipase/Protease/Amylase 1 each 08/17/18 15:55 Pancreaze 10,500 Unit FEEDTUBE PRN PRN For Clogged Feeding Tube Arformoterol Tartrate 15 mcg 08/18/18 20:00 08/29/18 19:41 Brovana Nebu IH 15 mcg Q12HRT LAMAR Administration Budesonide 0.5 mg 08/18/18 20:00 08/29/18 19:40 Pulmicort IH 0.5 mg Q12HRT LAMAR Administration Carvedilol 3.125 mg 08/26/18 15:19 08/29/18 22:54 Coreg PO 3.125 mg BID LAMAR Administration Duloxetine HCl 60 mg 08/16/18 10:00 08/29/18 09:30 Cymbalta PO 60 mg QDAY LAMAR Administration Enoxaparin Sodium 40 mg 08/29/18 22:00 08/29/18 22:53 Lovenox SUB-Q 40 mg QDAY@2200 LAMAR Administration Famotidine 20 mg 08/29/18 10:00 08/29/18 22:54 Pepcid PO 20 mg BID LAMAR Administration Hydralazine HCl 10 mg 08/19/18 13:59 08/29/18 14:22 Apresoline IV 10 mg Q3H PRN Administration Hydralazine HCl 20 mg 08/29/18 18:00 08/29/18 22:53 Apresoline IV 20 mg Q4HR LAMAR Administration Hydrophilic Ointment 1 applic 08/15/18 21:55 Vaseline Lip Therapy TP Q2HR PRN Dry Lips Norepinephrine 4 mg in 250 mls @ 7.5 mls/hr 08/17/18 20:00 08/26/18 05:42 Levophed Drip 4 Mg/Ns 250 Ml IV 0 mcg/min TITR LAMAR 0 mls/hr Titration Protocol 2 MCG/MIN Sodium Chloride 1,000 mls @ 50 mls/hr 08/22/18 12:00 08/28/18 11:22 Nacl 0.9% 1000 Ml IV 50 mls/hr DIRECT LAMAR Administration Micafungin Sodium 100 mg/ 100 mls @ 100 mls/hr 08/26/18 11:00 08/29/18 10:32 Sodium Chloride IV 100 mls/hr QDAY LAMAR Administration Protocol Lorazepam 0.5 mg 08/29/18 17:18 08/30/18 00:35 Ativan IV 0.5 mg Q4H PRN Administration Agitation Metoclopramide HCl 5 mg 08/15/18 22:50 Reglan IV Q6H PRN Nausea And Vomiting Morphine Sulfate 1 mg 08/29/18 15:29 08/29/18 23:07 Morphine IV 1 mg Q4H PRN Administration Pain, Moderate (4-6) Ondansetron HCl 4 mg 08/15/18 22:12 Zofran IV Q8H PRN Nausea And Vomiting Quetiapine Fumarate 200 mg 08/22/18 12:00 08/29/18 22:53 Seroquel PO 200 mg BID LAMAR Administration Simple Syrup 15 ml 08/17/18 15:55 Simple Syrup FEEDTUBE PRN PRN Hypoglycemia Simple Syrup 30 ml 08/17/18 15:55 Simple Syrup FEEDTUBE PRN PRN Hypoglycemia Sodium Bicarbonate 325 mg 08/17/18 15:55 Sodium Bicarbonate FEEDTUBE PRN PRN For Clogged Feeding Tube Sodium Chloride 10 ml 08/16/18 10:00 08/29/18 22:56 Sodium Chloride Flush Syringe 10 Ml IV 10 ml BID LAMAR Administration Sodium Chloride 10 ml 08/15/18 22:12 08/25/18 21:35 Sodium Chloride Flush Syringe 10 Ml IV 10 ml PRN PRN Administration LINE FLUSH
[2018-08-30] MEDS: PROAMATINE PO SCH (07:41)
[2018-08-30] MEDS: APRESOLINE IV SCH ×5 (07:45→22:33)
--- NOTE | 2018-08-30 08:12 | Progress Note ---
Assessment and Plan Severe sepsis with septic shock Intermittent fevers and hypotension -Fungemia on Micafungin Acute hypoxic-hypercapnic respiratory failure on NIPPV h/o COPD Acute kidney injury, rising creatinine levels Acute encephalopathy( toxic-metabolic)- much improved Aspiration pneumonia/CAP New onset cardiomyopathy, LVEF 25-30% this admission Previous echo 03/30/2016 at [facility] revealed normal LVEF Previous stress MPI 03/29/2016 at [facility] revealed no ischemia Abnormal ECG showing LBBB, chronic Anemia s/p PRBC with appropriate response -Recent EGD at [facility] 08/08/2018 revealing irregular Z line, gastritis and small hiatal hernia Recent colonoscopy at [facility] 08/08/2018 revealing sigmoid polyp, transverse colon polyps, inflamed hemorrhoids and diverticulosis E.coli/Staph pneumonia Thrombocytopenia resolved -Continue NIPPV -Wean supplemental oxygen to keep O2 sats 88-90% -Oxygen restrictive strategies -Antibiotics/antifungal to complete course -Hypotonic solution for hypernatremia -Speech language pathologist for dysphagia screen - agitation and analgesia management -Monitor renal indices -Cardioprotective measures -Stress ulcer prophylaxis -VTE prophylaxis, SCDs - enoxaparin -Aspiration precautions -Accuchecks with glycemic control. Target glucose of 140-180 mg/dL -Continue bronchodilators with pulmonary hygiene per RT -Maintenance of sleep -wake cycle -Mobility program -Influenza and pneumonia vaccination per protocol ..care plan discussed at length with RN/RT at the bedside ...discussed care plan with ICU team on ICU-IDT rounds Discussed with the at the bedside. Updated him and care plan discussed. Continue to monitor in the ICU for another 24 hours Fentanyl patch for pain management PROGNOSIS :GUARDED CONDITION: CRITICAL CODE STATUS: FULL CODE The high probability of a clinically significant, sudden or life-threatening deterioration of the [respiratory, cardiovascular, renal] system(s) required my full and direct attention, intervention and personal management. The aggregate critical care time was [35] minutes without overlap. Time includes spent on; [x] Data Review and interpretation [x] Patient assessment and monitoring of vital signs [x] Documentation [x] Medication orders and management Subjective Date of service: 08/30/18 Principal diagnosis: Acute hypoxemic hypercapnic Resp failure; AE-COPD; Acute kidney injury Interval history: Follow up: Aspiration PNA, Abnormal CXR, Hypotension, Acute renal failure, Acute encephaloapthy, Acute hypoxemic respiratory failure onMVS Seen and examined. Vitals, labs, medications, chart and imaging reviewed. 24 hours events reviewed. Extubated yesterday, late in the evening she became more tachypnic, BIPAP started Agitation on going per RN. No fevers, no vomiting, on BIPAP, spontaneous eye opening, moving all extremities Very restless Objective Vital Signs - 12hr 08/29/18 08/29/18 08/29/18 20:14 20:16 20:30 Temperature Pulse Rate 108 H 108 H 107 H Pulse Rate [ Anterior Bilateral Throughout] Pulse Rate [ Apical] Respiratory 25 H 44 H 37 H Rate Respiratory Rate [Anterior Bilateral Throughout] Blood Pressure 176/90 176/90 176/90 O2 Sat by Pulse 97 97 94 Oximetry 08/29/18 08/29/18 08/29/18 20:46 21:00 21:16 Temperature Pulse Rate 106 H 106 H 106 H Pulse Rate [ Anterior Bilateral Throughout] Pulse Rate [ Apical] Respiratory 34 H 27 H 22 Rate Respiratory Rate [Anterior Bilateral Throughout] Blood Pressure 151/85 151/85 168/81 O2 Sat by Pulse 94 95 97 Oximetry 08/29/18 08/29/18 08/29/18 21:30 21:46 22:00 Temperature Pulse Rate 107 H 107 H 106 H Pulse Rate [ Anterior Bilateral Throughout] Pulse Rate [ Apical] Respiratory 20 22 31 H Rate Respiratory Rate [Anterior Bilateral Throughout] Blood Pressure 168/81 168/81 168/81 O2 Sat by Pulse 97 97 97 Oximetry 08/29/18 08/29/18 08/29/18 22:16 22:30 22:46 Temperature Pulse Rate 105 H 104 H 103 H Pulse Rate [ Anterior Bilateral Throughout] Pulse Rate [ Apical] Respiratory 34 H 21 35 H Rate Respiratory Rate [Anterior Bilateral Throughout] Blood Pressure 160/40 160/40 171/81 O2 Sat by Pulse 97 98 97 Oximetry 08/29/18 08/29/18 08/29/18 22:53 22:54 23:00 Temperature Pulse Rate 105 H 104 H 109 H Pulse Rate [ Anterior Bilateral Throughout] Pulse Rate [ Apical] Respiratory 17 Rate Respiratory Rate [Anterior Bilateral Throughout] Blood Pressure 171/81 171/81 171/81 O2 Sat by Pulse 96 Oximetry 08/29/18 08/29/18 08/29/18 23:12 23:16 23:30 Temperature 99.5 F Pulse Rate 104 H 109 H Pulse Rate [ Anterior Bilateral Throughout] Pulse Rate [ Apical] Respiratory 23 16 Rate Respiratory Rate [Anterior Bilateral Throughout] Blood Pressure 158/86 158/86 O2 Sat by Pulse 96 96 Oximetry 08/29/18 08/29/18 08/30/18 23:36 23:46 00:00 Temperature Pulse Rate 107 H 109 H 111 H Pulse Rate [ Anterior Bilateral Throughout] Pulse Rate [ 100 H Apical] Respiratory 16 21 38 H Rate Respiratory Rate [Anterior Bilateral Throughout] Blood Pressure 135/85 147/72 O2 Sat by Pulse 96 96 98 Oximetry 08/30/18 08/30/18 08/30/18 00:16 00:30 00:46 Temperature Pulse Rate 110 H 111 H 110 H Pulse Rate [ Anterior Bilateral Throughout] Pulse Rate [ Apical] Respiratory 13 32 H 39 H Rate Respiratory Rate [Anterior Bilateral Throughout] Blood Pressure 135/85 135/85 136/117 O2 Sat by Pulse 99 99 99 Oximetry 08/30/18 08/30/18 08/30/18 01:00 01:16 01:30 Temperature Pulse Rate 107 H 105 H 106 H Pulse Rate [ Anterior Bilateral Throughout] Pulse Rate [ Apical] Respiratory 28 H 44 H 46 H Rate Respiratory Rate [Anterior Bilateral Throughout] Blood Pressure 136/117 161/85 161/85 O2 Sat by Pulse 98 99 99 Oximetry 08/30/18 08/30/18 08/30/18 01:46 02:00 02:16 Temperature Pulse Rate 105 H 104 H 103 H Pulse Rate [ Anterior Bilateral Throughout] Pulse Rate [ Apical] Respiratory 35 H 21 45 H Rate Respiratory Rate [Anterior Bilateral Throughout] Blood Pressure 156/74 156/74 165/67 O2 Sat by Pulse 97 98 97 Oximetry 08/30/18 08/30/18 08/30/18 02:30 02:38 02:46 Temperature Pulse Rate 104 H 101 H Pulse Rate [ 103 H Anterior Bilateral Throughout] Pulse Rate [ Apical] Respiratory 42 H 42 H Rate Respiratory 22 Rate [Anterior Bilateral Throughout] Blood Pressure 165/67 165/67 O2 Sat by Pulse 98 100 Oximetry 08/30/18 08/30/18 08/30/18 02:53 03:00 03:16 Temperature Pulse Rate 100 H 97 H Pulse Rate [ 105 H Anterior Bilateral Throughout] Pulse Rate [ Apical] Respiratory 52 H 37 H Rate Respiratory 22 Rate [Anterior Bilateral Throughout] Blood Pressure 165/67 155/78 O2 Sat by Pulse 99 99 Oximetry 08/30/18 08/30/18 08/30/18 03:20 03:30 03:46 Temperature Pulse Rate 99 H 99 H 94 H Pulse Rate [ Anterior Bilateral Throughout] Pulse Rate [ Apical] Respiratory 36 H 41 H 37 H Rate Respiratory Rate [Anterior Bilateral Throughout] Blood Pressure 158/82 158/77 158/82 O2 Sat by Pulse 95 95 95 Oximetry 08/30/18 08/30/18 08/30/18 04:00 04:16 04:30 Temperature 98.4 F Pulse Rate 97 H 94 H 96 H Pulse Rate [ Anterior Bilateral Throughout] Pulse Rate [ 88 Apical] Respiratory 39 H 23 28 H Rate Respiratory Rate [Anterior Bilateral Throughout] Blood Pressure 158/82 157/74 157/74 O2 Sat by Pulse 94 95 94 Oximetry 08/30/18 08/30/18 08/30/18 04:46 05:00 05:16 Temperature Pulse Rate 95 H 96 H 93 H Pulse Rate [ Anterior Bilateral Throughout] Pulse Rate [ Apical] Respiratory 36 H 35 H 28 H Rate Respiratory Rate [Anterior Bilateral Throughout] Blood Pressure 157/74 157/74 162/72 O2 Sat by Pulse 96 95 95 Oximetry 08/30/18 08/30/18 08/30/18 05:30 05:46 06:00 Temperature Pulse Rate 94 H 93 H 94 H Pulse Rate [ Anterior Bilateral Throughout] Pulse Rate [ Apical] Respiratory 39 H 29 H 24 Rate Respiratory Rate [Anterior Bilateral Throughout] Blood Pressure 162/72 162/72 162/72 O2 Sat by Pulse 95 94 95 Oximetry 08/30/18 08/30/18 08/30/18 06:16 06:30 06:46 Temperature Pulse Rate 96 H 94 H 93 H Pulse Rate [ Anterior Bilateral Throughout] Pulse Rate [ Apical] Respiratory 22 22 26 H Rate Respiratory Rate [Anterior Bilateral Throughout] Blood Pressure 158/80 158/80 158/80 O2 Sat by Pulse 93 94 92 Oximetry 08/30/18 08/30/18 08/30/18 07:00 07:16 07:30 Temperature Pulse Rate 102 H 95 H 113 H Pulse Rate [ Anterior Bilateral Throughout] Pulse Rate [ Apical] Respiratory 30 H 39 H 42 H Rate Respiratory Rate [Anterior Bilateral Throughout] Blood Pressure 158/80 152/90 152/90 O2 Sat by Pulse 91 92 93 Oximetry 08/30/18 07:46 Temperature Pulse Rate 95 H Pulse Rate [ Anterior Bilateral Throughout] Pulse Rate [ Apical] Respiratory 38 H Rate Respiratory Rate [Anterior Bilateral Throughout] Blood Pressure 144/115 O2 Sat by Pulse 93 Oximetry Constitutional: appears uncomfortable, other (elderly looking CF, normocephalic and atraumatic) Eyes: non-icteric ENT: oropharynx moist, other (NIPPV) Neck: supple, no lymphadenopathy, no JVD, other (no thyromegaly) Effort: mildly labored Ascultation: Bilateral: diminished breath sounds, rales, rhonchi Percussion: Bilateral: not dull Cardiovascular: regular rate and rhythm, other (S1,S2, no murmurs) Gastrointestinal: normoactive bowel sounds, soft, non-tender, non-distended Integumentary: normal Extremities: no cyanosis, no edema, no ischemia or petechiae Neurologic: normal mental status, non-focal exam (grossly), pupils equal and round, CN II-XII normal, motor strength normal and Psychiatric: anxious CBC and BMP: 08/30/18 09:33 08/30/18 09:33 ABG, PT/INR, D-dimer: ABG POC ABG pH 7.417 (7.35-7.45) 08/28/18 22:31 POC ABG pCO2 34.4 (35-45) L 08/28/18 22:31 POC ABG pO2 67 (80-105) L 08/28/18 22:31 POC ABG HCO3 22.1 (22-26 mml/L) 08/28/18 22:31 POC ABG Total CO2 23 (23-27mmol/L) 08/28/18 22:31 POC ABG O2 Sat 94 08/28/18 22:31 PT/INR, D-dimer D-Dimer 2768.33 ng/mlDDU (0-234) H 08/15/18 18:31 Abnormal lab findings: Abnormal Labs 08/15/18 08/15/18 08/15/18 17:52 17:52 17:52 WBC 12.7 H RBC 3.25 L Hgb Hct RDW Plt Count Lymph % (Auto) [place] % (Auto) Lymph # Seg Neutrophils % Seg Neuts % (Manual) Lymphocytes % (Manual) 6.0 L Nucleated RBC % Seg Neutrophils # Seg Neutrophils # Man Lymphocytes # (Manual) 0.8 L D-Dimer POC ABG pH POC ABG pCO2 POC ABG pO2 VBG pH Sodium Potassium 3.4 L Chloride 94.6 L Carbon Dioxide 17 L BUN 67 H Creatinine 3.5 H Glucose 131 H POC Glucose Hemoglobin A1c Lactic Acid 5.20 H* Calcium 7.6 L Phosphorus AST 887 H ALT 316 H Troponin T C-Reactive Protein Total Protein Albumin 3.1 L Triglycerides LDL Cholesterol Direct HDL Cholesterol Urine WBC (Auto) Salicylates Acetaminophen % CD3 Cells % CD19 Cells Absolute CD19 Count Crossmatch 08/15/18 08/15/18 08/15/18 18:11 18:19 18:31 WBC RBC Hgb Hct RDW Plt Count Lymph % (Auto) [place] % (Auto) Lymph # Seg Neutrophils % Seg Neuts % (Manual) Lymphocytes % (Manual) Nucleated RBC % Seg Neutrophils # Seg Neutrophils # Man Lymphocytes # (Manual) D-Dimer 2768.33 H POC ABG pH 7.173 L POC ABG pCO2 47.8 H POC ABG pO2 177 H VBG pH 7.187 L* Sodium Potassium Chloride Carbon Dioxide BUN Creatinine Glucose POC Glucose Hemoglobin A1c Lactic Acid Calcium Phosphorus AST ALT Troponin T C-Reactive Protein Total Protein Albumin Triglycerides LDL Cholesterol Direct HDL Cholesterol Urine WBC (Auto) Salicylates Acetaminophen % CD3 Cells % CD19 Cells Absolute CD19 Count Crossmatch 08/15/18 08/15/18 08/15/18 18:31 19:14 19:14 WBC RBC Hgb Hct RDW Plt Count Lymph % (Auto) [place] % (Auto) Lymph # Seg Neutrophils % Seg Neuts % (Manual) Lymphocytes % (Manual) Nucleated RBC % Seg Neutrophils # Seg Neutrophils # Man Lymphocytes # (Manual) D-Dimer POC ABG pH POC ABG pCO2 POC ABG pO2 VBG pH Sodium Potassium Chloride Carbon Dioxide BUN Creatinine Glucose POC Glucose Hemoglobin A1c Lactic Acid 2.70 H* Calcium Phosphorus AST ALT Troponin T 0.454 H* C-Reactive Protein Total Protein Albumin Triglycerides 356 H LDL Cholesterol Direct 4 L HDL Cholesterol 10 L Urine WBC (Auto) Salicylates < 0.3 L Acetaminophen % CD3 Cells % CD19 Cells Absolute CD19 Count Crossmatch 08/15/18 08/15/18 08/15/18 19:14 19:15 23:09 WBC RBC Hgb Hct RDW Plt Count Lymph % (Auto) [place] % (Auto) Lymph # Seg Neutrophils % Seg Neuts % (Manual) Lymphocytes % (Manual) Nucleated RBC % Seg Neutrophils # Seg Neutrophils # Man Lymphocytes # (Manual) D-Dimer POC ABG pH POC ABG pCO2 POC ABG pO2 VBG pH Sodium Potassium Chloride Carbon Dioxide BUN Creatinine Glucose POC Glucose Hemoglobin A1c Lactic Acid 3.20 H* Calcium Phosphorus AST ALT Troponin T C-Reactive Protein Total Protein Albumin Triglycerides LDL Cholesterol Direct HDL Cholesterol Urine WBC (Auto) 17.0 H Salicylates Acetaminophen < 5.0 L % CD3 Cells % CD19 Cells Absolute CD19 Count Crossmatch 08/15/18 08/16/18 08/16/18 23:09 01:41 05:38 WBC RBC 3.07 L Hgb 9.8 L Hct 28.7 L RDW Plt Count Lymph % (Auto) [place] % (Auto) Lymph # Seg Neutrophils % Seg Neuts % (Manual) 84.0 H Lymphocytes % (Manual) 6.0 L Nucleated RBC % 4.0 H Seg Neutrophils # Seg Neutrophils # Man Lymphocytes # (Manual) 0.5 L D-Dimer POC ABG pH 7.323 L POC ABG pCO2 34.7 L POC ABG pO2 78 L VBG pH Sodium Potassium Chloride Carbon Dioxide BUN Creatinine Glucose POC Glucose Hemoglobin A1c 6.4 H Lactic Acid Calcium Phosphorus AST ALT Troponin T C-Reactive Protein Total Protein Albumin Triglycerides LDL Cholesterol Direct HDL Cholesterol Urine WBC (Auto) Salicylates Acetaminophen % CD3 Cells % CD19 Cells Absolute CD19 Count Crossmatch 08/16/18 08/16/18 08/17/18 05:38 22:43 03:42 WBC RBC Hgb Hct RDW Plt Count Lymph % (Auto) [place] % (Auto) Lymph # Seg Neutrophils % Seg Neuts % (Manual) Lymphocytes % (Manual) Nucleated RBC % Seg Neutrophils # Seg Neutrophils # Man Lymphocytes # (Manual) D-Dimer POC ABG pH POC ABG pCO2 POC ABG pO2 VBG pH Sodium Potassium 2.9 L* 3.1 L 2.9 L* Chloride 108.8 H 111.9 H Carbon Dioxide 17 L 19 L 21 L BUN 62 H 40 H 33 H Creatinine 2.0 H Glucose 139 H 145 H POC Glucose Hemoglobin A1c Lactic Acid Calcium 7.8 L 8.3 L Phosphorus 1.50 L AST 619 H ALT 353 H Troponin T C-Reactive Protein Total Protein 6.1 L Albumin 2.8 L Triglycerides LDL Cholesterol Direct HDL Cholesterol Urine WBC (Auto) Salicylates Acetaminophen % CD3 Cells % CD19 Cells Absolute CD19 Count Crossmatch 08/17/18 08/17/18 08/18/18 11:02 16:42 03:28 WBC RBC Hgb Hct RDW Plt Count Lymph % (Auto) [place] % (Auto) Lymph # Seg Neutrophils % Seg Neuts % (Manual) Lymphocytes % (Manual) Nucleated RBC % Seg Neutrophils # Seg Neutrophils # Man Lymphocytes # (Manual) D-Dimer POC ABG pH 7.483 H 7.499 H POC ABG pCO2 POC ABG pO2 VBG pH Sodium 147 H Potassium 3.2 L Chloride 115.8 H Carbon Dioxide BUN 23 H Creatinine Glucose 121 H POC Glucose Hemoglobin A1c Lactic Acid Calcium 8.1 L Phosphorus 2.30 L D AST ALT Troponin T C-Reactive Protein Total Protein Albumin Triglycerides LDL Cholesterol Direct HDL Cholesterol Urine WBC (Auto) Salicylates Acetaminophen % CD3 Cells % CD19 Cells Absolute CD19 Count Crossmatch 08/18/18 08/18/18 08/18/18 04:10 13:39 13:39 WBC RBC Hgb Hct RDW Plt Count Lymph % (Auto) [place] % (Auto) Lymph # Seg Neutrophils % Seg Neuts % (Manual) Lymphocytes % (Manual) Nucleated RBC % Seg Neutrophils # Seg Neutrophils # Man Lymphocytes # (Manual) D-Dimer POC ABG pH POC ABG pCO2 POC ABG pO2 VBG pH Sodium 147 H Potassium 3.3 L Chloride 111.9 H Carbon Dioxide BUN 21 H Creatinine Glucose 113 H POC Glucose Hemoglobin A1c Lactic Acid Calcium Phosphorus 1.50 L D AST ALT Troponin T 0.317 H* D C-Reactive Protein 10.70 H Total Protein Albumin Triglycerides LDL Cholesterol Direct HDL Cholesterol Urine WBC (Auto) Salicylates Acetaminophen % CD3 Cells % CD19 Cells Absolute CD19 Count Crossmatch 08/18/18 08/19/18 08/19/18 16:51 03:47 04:15 WBC RBC Hgb Hct RDW Plt Count Lymph % (Auto) [place] % (Auto) Lymph # Seg Neutrophils % Seg Neuts % (Manual) Lymphocytes % (Manual) Nucleated RBC % Seg Neutrophils # Seg Neutrophils # Man Lymphocytes # (Manual) D-Dimer POC ABG pH 7.454 H 7.482 H POC ABG pCO2 POC ABG pO2 65 L VBG pH Sodium 154 H Potassium 3.3 L Chloride 115.1 H Carbon Dioxide BUN 19 H Creatinine Glucose 117 H POC Glucose Hemoglobin A1c Lactic Acid Calcium 7.8 L Phosphorus AST ALT Troponin T C-Reactive Protein Total Protein Albumin Triglycerides LDL Cholesterol Direct HDL Cholesterol Urine WBC (Auto) Salicylates Acetaminophen % CD3 Cells % CD19 Cells Absolute CD19 Count Crossmatch 08/19/18 08/19/18 08/20/18 14:32 16:18 03:51 WBC RBC Hgb Hct RDW Plt Count Lymph % (Auto) [place] % (Auto) Lymph # Seg Neutrophils % Seg Neuts % (Manual) Lymphocytes % (Manual) Nucleated RBC % Seg Neutrophils # Seg Neutrophils # Man Lymphocytes # (Manual) D-Dimer POC ABG pH 7.483 H POC ABG pCO2 33.4 L POC ABG pO2 51 L 74 L VBG pH Sodium Potassium Chloride Carbon Dioxide BUN Creatinine Glucose POC Glucose Hemoglobin A1c Lactic Acid Calcium Phosphorus AST ALT Troponin T C-Reactive Protein Total Protein Albumin Triglycerides LDL Cholesterol Direct HDL Cholesterol Urine WBC (Auto) Salicylates Acetaminophen % CD3 Cells 44 L % CD19 Cells 41 H Absolute CD19 Count 1290 H Crossmatch 08/20/18 08/21/18 08/21/18 05:25 03:54 05:45 WBC 24.1 H RBC 2.83 L Hgb 8.8 L Hct 26.7 L RDW 15.7 H Plt Count 127 L Lymph % (Auto) [place] % (Auto) Lymph # Seg Neutrophils % Seg Neuts % (Manual) 94.0 H Lymphocytes % (Manual) 4.0 L Nucleated RBC % 1.0 H Seg Neutrophils # Seg Neutrophils # Man 22.7 H Lymphocytes # (Manual) 1.0 L D-Dimer POC ABG pH POC ABG pCO2 31.9 L POC ABG pO2 66 L VBG pH Sodium 146 H D Potassium Chloride 111.2 H Carbon Dioxide BUN 24 H Creatinine Glucose 141 H POC Glucose Hemoglobin A1c Lactic Acid Calcium 8.1 L Phosphorus AST 65 H ALT 104 H Troponin T C-Reactive Protein Total Protein 6.2 L Albumin 2.6 L Triglycerides LDL Cholesterol Direct HDL Cholesterol Urine WBC (Auto) Salicylates Acetaminophen % CD3 Cells % CD19 Cells Absolute CD19 Count Crossmatch 08/21/18 08/22/18 08/22/18 05:45 06:20 06:45 WBC RBC Hgb Hct RDW Plt Count Lymph % (Auto) [place] % (Auto) Lymph # Seg Neutrophils % Seg Neuts % (Manual) Lymphocytes % (Manual) Nucleated RBC % Seg Neutrophils # Seg Neutrophils # Man Lymphocytes # (Manual) D-Dimer POC ABG pH POC ABG pCO2 32.9 L POC ABG pO2 VBG pH Sodium Potassium 3.5 L Chloride 109.4 H 112.4 H Carbon Dioxide 21 L 20 L BUN 50 H 61 H Creatinine 2.0 H D 1.9 H Glucose 144 H 154 H POC Glucose Hemoglobin A1c Lactic Acid Calcium 7.6 L 7.8 L Phosphorus AST ALT Troponin T C-Reactive Protein Total Protein 5.3 L Albumin 2.1 L Triglycerides LDL Cholesterol Direct HDL Cholesterol Urine WBC (Auto) Salicylates Acetaminophen % CD3 Cells % CD19 Cells Absolute CD19 Count Crossmatch 08/22/18 08/22/18 08/22/18 06:45 15:29 18:40 WBC RBC Hgb Hct RDW Plt Count Lymph % (Auto) [place] % (Auto) Lymph # Seg Neutrophils % Seg Neuts % (Manual) Lymphocytes % (Manual) Nucleated RBC % Seg Neutrophils # Seg Neutrophils # Man Lymphocytes # (Manual) D-Dimer POC ABG pH POC ABG pCO2 POC ABG pO2 VBG pH Sodium Potassium Chloride Carbon Dioxide BUN Creatinine Glucose POC Glucose 169 H Hemoglobin A1c Lactic Acid Calcium Phosphorus AST ALT Troponin T C-Reactive Protein 4.70 H Total Protein Albumin Triglycerides 197 H LDL Cholesterol Direct HDL Cholesterol Urine WBC (Auto) Salicylates Acetaminophen % CD3 Cells % CD19 Cells Absolute CD19 Count Crossmatch 08/23/18 08/23/18 08/23/18 03:59 21:19 Unknown WBC 12.1 H RBC 2.29 L Hgb 7.1 L Hct 21.7 L RDW 15.7 H Plt Count 106 L Lymph % (Auto) [place] % (Auto) Lymph # Seg Neutrophils % Seg Neuts % (Manual) 92.0 H Lymphocytes % (Manual) 4.0 L Nucleated RBC % Seg Neutrophils # Seg Neutrophils # Man 11.1 H Lymphocytes # (Manual) 0.5 L D-Dimer POC ABG pH 7.306 L POC ABG pCO2 31.3 L POC ABG pO2 119 H 75 L VBG pH Sodium Potassium Chloride Carbon Dioxide BUN Creatinine Glucose POC Glucose Hemoglobin A1c Lactic Acid Calcium Phosphorus AST ALT Troponin T C-Reactive Protein Total Protein Albumin Triglycerides LDL Cholesterol Direct HDL Cholesterol Urine WBC (Auto) Salicylates Acetaminophen % CD3 Cells % CD19 Cells Absolute CD19 Count Crossmatch 08/23/18 08/24/18 08/24/18 Unknown 04:18 08:30 WBC 12.8 H RBC 2.24 L Hgb 7.0 L Hct 21.1 L RDW Plt Count Lymph % (Auto) [place] % (Auto) Lymph # Seg Neutrophils % Seg Neuts % (Manual) 93.0 H Lymphocytes % (Manual) 6.0 L Nucleated RBC % Seg Neutrophils # Seg Neutrophils # Man 11.9 H Lymphocytes # (Manual) 0.8 L D-Dimer POC ABG pH POC ABG pCO2 POC ABG pO2 78 L VBG pH Sodium Potassium Chloride 115.7 H Carbon Dioxide 21 L BUN 64 H Creatinine 2.0 H Glucose 149 H POC Glucose Hemoglobin A1c Lactic Acid Calcium 7.5 L Phosphorus AST ALT Troponin T C-Reactive Protein Total Protein 4.8 L Albumin 2.0 L Triglycerides LDL Cholesterol Direct HDL Cholesterol Urine WBC (Auto) Salicylates Acetaminophen % CD3 Cells % CD19 Cells Absolute CD19 Count Crossmatch 08/24/18 08/24/18 08/24/18 08:30 17:44 18:28 WBC RBC Hgb Hct RDW Plt Count Lymph % (Auto) [place] % (Auto) Lymph # Seg Neutrophils % Seg Neuts % (Manual) Lymphocytes % (Manual) Nucleated RBC % Seg Neutrophils # Seg Neutrophils # Man Lymphocytes # (Manual) D-Dimer POC ABG pH 7.474 H POC ABG pCO2 POC ABG pO2 61 L VBG pH Sodium Potassium Chloride 108.3 H Carbon Dioxide 20 L BUN 65 H Creatinine 2.0 H Glucose 167 H POC Glucose 164 H Hemoglobin A1c Lactic Acid Calcium 7.7 L Phosphorus AST ALT Troponin T C-Reactive Protein Total Protein 5.3 L Albumin 2.2 L Triglycerides LDL Cholesterol Direct HDL Cholesterol Urine WBC (Auto) Salicylates Acetaminophen % CD3 Cells % CD19 Cells Absolute CD19 Count Crossmatch 08/25/18 08/25/18 08/25/18 03:35 05:20 05:20 WBC RBC Hgb 6.7 L Hct 21.0 L RDW Plt Count Lymph % (Auto) [place] % (Auto) Lymph # Seg Neutrophils % Seg Neuts % (Manual) Lymphocytes % (Manual) Nucleated RBC % Seg Neutrophils # Seg Neutrophils # Man Lymphocytes # (Manual) D-Dimer POC ABG pH POC ABG pCO2 POC ABG pO2 79 L VBG pH Sodium Potassium Chloride Carbon Dioxide 21 L BUN 71 H Creatinine 3.1 H D Glucose 171 H POC Glucose Hemoglobin A1c Lactic Acid Calcium 7.5 L Phosphorus AST ALT Troponin T C-Reactive Protein Total Protein Albumin Triglycerides LDL Cholesterol Direct HDL Cholesterol Urine WBC (Auto) Salicylates Acetaminophen % CD3 Cells % CD19 Cells Absolute CD19 Count Crossmatch 08/25/18 08/25/18 08/25/18 05:20 08:52 12:42 WBC RBC Hgb Hct RDW Plt Count Lymph % (Auto) [place] % (Auto) Lymph # Seg Neutrophils % Seg Neuts % (Manual) Lymphocytes % (Manual) Nucleated RBC % Seg Neutrophils # Seg Neutrophils # Man Lymphocytes # (Manual) D-Dimer POC ABG pH POC ABG pCO2 POC ABG pO2 VBG pH Sodium Potassium Chloride Carbon Dioxide BUN Creatinine Glucose POC Glucose 166 H Hemoglobin A1c Lactic Acid Calcium Phosphorus AST ALT Troponin T C-Reactive Protein 5.00 H Total Protein Albumin Triglycerides LDL Cholesterol Direct HDL Cholesterol Urine WBC (Auto) Salicylates Acetaminophen % CD3 Cells % CD19 Cells Absolute CD19 Count Crossmatch See Detail 08/25/18 08/26/18 08/26/18 18:05 00:13 04:53 WBC RBC Hgb Hct RDW Plt Count Lymph % (Auto) [place] % (Auto) Lymph # Seg Neutrophils % Seg Neuts % (Manual) Lymphocytes % (Manual) Nucleated RBC % Seg Neutrophils # Seg Neutrophils # Man Lymphocytes # (Manual) D-Dimer POC ABG pH POC ABG pCO2 30.9 L POC ABG pO2 70 L VBG pH Sodium Potassium Chloride Carbon Dioxide BUN Creatinine Glucose POC Glucose 121 H 164 H Hemoglobin A1c Lactic Acid Calcium Phosphorus AST ALT Troponin T C-Reactive Protein Total Protein Albumin Triglycerides LDL Cholesterol Direct HDL Cholesterol Urine WBC (Auto) Salicylates Acetaminophen % CD3 Cells % CD19 Cells Absolute CD19 Count Crossmatch 08/26/18 08/26/18 08/26/18 05:42 06:00 06:00 WBC RBC 2.62 L Hgb 7.7 L Hct 23.0 L RDW 22.0 H Plt Count Lymph % (Auto) 6.[address] [place] % (Auto) Lymph # 0.7 L Seg Neutrophils % 88.1 H Seg Neuts % (Manual) Lymphocytes % (Manual) Nucleated RBC % Seg Neutrophils # 9.6 H Seg Neutrophils # Man Lymphocytes # (Manual) D-Dimer POC ABG pH POC ABG pCO2 POC ABG pO2 VBG pH Sodium Potassium Chloride Carbon Dioxide 21 L BUN 70 H Creatinine 3.3 H Glucose 146 H POC Glucose 149 H Hemoglobin A1c Lactic Acid Calcium 8.0 L Phosphorus AST ALT Troponin T C-Reactive Protein Total Protein Albumin Triglycerides LDL Cholesterol Direct HDL Cholesterol Urine WBC (Auto) Salicylates Acetaminophen % CD3 Cells % CD19 Cells Absolute CD19 Count Crossmatch 08/26/18 08/26/18 08/27/18 11:37 23:54 04:35 WBC RBC 2.50 L Hgb 7.6 L Hct 22.3 L RDW 21.8 H Plt Count Lymph % (Auto) 7.[address] [place] % (Auto) Lymph # 0.7 L Seg Neutrophils % 85.6 H Seg Neuts % (Manual) Lymphocytes % (Manual) Nucleated RBC % Seg Neutrophils # 8.6 H Seg Neutrophils # Man Lymphocytes # (Manual) D-Dimer POC ABG pH POC ABG pCO2 POC ABG pO2 VBG pH Sodium Potassium Chloride Carbon Dioxide BUN Creatinine Glucose POC Glucose 183 H 150 H Hemoglobin A1c Lactic Acid Calcium Phosphorus AST ALT Troponin T C-Reactive Protein Total Protein Albumin Triglycerides LDL Cholesterol Direct HDL Cholesterol Urine WBC (Auto) Salicylates Acetaminophen % CD3 Cells % CD19 Cells Absolute CD19 Count Crossmatch 08/27/18 08/27/18 08/28/18 04:35 12:17 04:43 WBC RBC Hgb Hct RDW Plt Count Lymph % (Auto) [place] % (Auto) Lymph # Seg Neutrophils % Seg Neuts % (Manual) Lymphocytes % (Manual) Nucleated RBC % Seg Neutrophils # Seg Neutrophils # Man Lymphocytes # (Manual) D-Dimer POC ABG pH POC ABG pCO2 32.1 L 33.8 L POC ABG pO2 68 L 78 L VBG pH Sodium Potassium Chloride Carbon Dioxide 19 L BUN 67 H Creatinine 2.9 H Glucose 155 H POC Glucose Hemoglobin A1c Lactic Acid Calcium Phosphorus 4.70 H AST ALT Troponin T C-Reactive Protein Total Protein Albumin Triglycerides LDL Cholesterol Direct HDL Cholesterol Urine WBC (Auto) Salicylates Acetaminophen % CD3 Cells % CD19 Cells Absolute CD19 Count Crossmatch 08/28/18 08/28/18 08/28/18 05:03 05:20 05:20 WBC RBC 2.43 L Hgb 7.4 L Hct 21.8 L RDW 20.8 H Plt Count Lymph % (Auto) 7.[address] [place] % (Auto) 8.7 H Lymph # 0.7 L Seg Neutrophils % 82.9 H Seg Neuts % (Manual) Lymphocytes % (Manual) Nucleated RBC % Seg Neutrophils # Seg Neutrophils # Man Lymphocytes # (Manual) D-Dimer POC ABG pH POC ABG pCO2 POC ABG pO2 VBG pH Sodium Potassium Chloride 107.8 H Carbon Dioxide 21 L BUN 55 H Creatinine 2.0 H Glucose 177 H POC Glucose 160 H Hemoglobin A1c Lactic Acid Calcium Phosphorus AST ALT Troponin T C-Reactive Protein Total Protein Albumin Triglycerides LDL Cholesterol Direct HDL Cholesterol Urine WBC (Auto) Salicylates Acetaminophen % CD3 Cells % CD19 Cells Absolute CD19 Count Crossmatch 08/28/18 08/28/18 08/28/18 12:18 18:58 22:31 WBC RBC Hgb Hct RDW Plt Count Lymph % (Auto) [place] % (Auto) Lymph # Seg Neutrophils % Seg Neuts % (Manual) Lymphocytes % (Manual) Nucleated RBC % Seg Neutrophils # Seg Neutrophils # Man Lymphocytes # (Manual) D-Dimer POC ABG pH POC ABG pCO2 34.4 L POC ABG pO2 67 L VBG pH Sodium Potassium Chloride Carbon Dioxide BUN Creatinine Glucose POC Glucose 164 H 149 H Hemoglobin A1c Lactic Acid Calcium Phosphorus AST ALT Troponin T C-Reactive Protein Total Protein Albumin Triglycerides LDL Cholesterol Direct HDL Cholesterol Urine WBC (Auto) Salicylates Acetaminophen % CD3 Cells % CD19 Cells Absolute CD19 Count Crossmatch 08/28/18 08/29/18 08/29/18 23:33 05:25 05:25 WBC RBC 2.30 L Hgb 7.0 L Hct 20.9 L RDW 21.0 H Plt Count Lymph % (Auto) 11.[address] [place] % (Auto) 9.2 H Lymph # 0.8 L Seg Neutrophils % 78.8 H Seg Neuts % (Manual) Lymphocytes % (Manual) Nucleated RBC % Seg Neutrophils # Seg Neutrophils # Man Lymphocytes # (Manual) D-Dimer POC ABG pH POC ABG pCO2 POC ABG pO2 VBG pH Sodium Potassium Chloride 111.1 H Carbon Dioxide BUN 55 H Creatinine 1.8 H Glucose 162 H POC Glucose 143 H Hemoglobin A1c Lactic Acid Calcium Phosphorus AST 46 H ALT < 5 L Troponin T C-Reactive Protein Total Protein 5.7 L Albumin 2.1 L Triglycerides LDL Cholesterol Direct HDL Cholesterol Urine WBC (Auto) Salicylates Acetaminophen % CD3 Cells % CD19 Cells Absolute CD19 Count Crossmatch 08/29/18 08/30/18 23:35 05:03 WBC RBC Hgb Hct RDW Plt Count Lymph % (Auto) [place] % (Auto) Lymph # Seg Neutrophils % Seg Neuts % (Manual) Lymphocytes % (Manual) Nucleated RBC % Seg Neutrophils # Seg Neutrophils # Man Lymphocytes # (Manual) D-Dimer POC ABG pH POC ABG pCO2 POC ABG pO2 VBG pH Sodium Potassium Chloride Carbon Dioxide BUN Creatinine Glucose POC Glucose 139 H 122 H Hemoglobin A1c Lactic Acid Calcium Phosphorus AST ALT Troponin T C-Reactive Protein Total Protein Albumin Triglycerides LDL Cholesterol Direct HDL Cholesterol Urine WBC (Auto) Salicylates Acetaminophen % CD3 Cells % CD19 Cells Absolute CD19 Count Crossmatch Allied health notes reviewed: RT
[2018-08-30] MEDS ORDERED: LASIX IV ONE (09:00)
[2018-08-30] MEDS: SODIUM CHLORIDE FLUSH SYRINGE 10 ML IV SCH ×2 (09:30→22:40)
[2018-08-30] MEDS: MYCAMINE 100 MG in NACL 0.9% 100 ML IV SCH (09:30)
[2018-08-30 10:12] LABS: Basophils % (Auto) 0.2 % (0.0-1.8); Hematocrit 23.5 % (30.3-42.9); Hemoglobin 7.9 gm/dl (10.1-14.3); Lymphocytes # (Auto) 0.8 K/mm3 (1.2-5.4); Mean Corpuscular HGB Conc 33 % (30-34); Mean Corpuscular Volume 91 fl (79-97); Monocytes % (Auto) 9.7 % (0.0-7.3); Platelet Count 315 K/mm3 (140-440); Red Blood Count 2.58 M/mm3 (3.65-5.03)
[2018-08-30] MEDS: PULMICORT IH SCH ×2 (10:13→19:22)
[2018-08-30] MEDS: BROVANA NEBU IH SCH ×2 (10:13→19:21)
[2018-08-30 10:15] LABS: Red Cell Distribution Width 20.9 % (13.2-15.2)
[2018-08-30 10:31] LABS: Alanine Aminotransferase < 5 units/L (7-56); Albumin 2.7 g/dL (3.9-5); BUN/Creatinine Ratio 29; Blood Urea Nitrogen 56 mg/dL (7-17); Calcium 9.1 mg/dL (8.4-10.2); Hemolysis Index 3
--- NOTE | 2018-08-30 10:42 | Progress Note ---
Assessment and Plan Assessment and plan: --Acute hypoxic hypercapnic respiratory failure; extubated on high flow o2/BiPAP f/u speech evaln and diet as tolerated --Anemia; hemoglobin today 7.9 received 1 unit PRBC , monitor,transfuse as needed --Sepsis; secondary to aspiration pneumonia, --Aspiration pneumonia; Continue antibiotics and antifungal per ID Follow-up chest x-ray; no improvement of pneumonia --Hypertension; continue current antihypertensives --Hypernatremia; free water flushes, improved Closely monitor electrolytes, trending down --Hypokalemia; replace with KCl, follow electrolytes --Severe malnutrition/hypoalbuminemia; Nutrition consults and supportive care --Acute kidney injury; probably secondary to ATN avoid nephrotoxins, Nephrology following ----Acute systolic congestive heart failure; Ejection fraction 25-30%, continue current management Cardiology following --Elevated Transaminases; resolved --DVT prophylaxis; Lovenox Consults and recommendations noted and appreciated Plan of care reviewed with the patient's nurse The high probability of a clinically significant, sudden or life threatening deterioration of the [respiratory, cardiology, ID, renal and metabolic] system(s) required my full and direct attention, intervention and personal management. The aggregate critical care time was [32] minutes. This time is in addition to time spent performing reported procedures but includes the following: [x] Data Review and interpretation [x] Patient assessment and monitoring of vital signs [x] Documentation [x] Medication orders and management History Interval history: Patient seen and examined medical records reviewed at the bedside Patient is on BiPAP in mild distress No new events reported by the nursing Patient is alert and awake Vital signs reviewed Hospitalist Physical - Constitutional Vitals: Temp Pulse Resp BP Pulse Ox 98.6 F 85 37 H 160/62 98 08/30/18 08:00 08/30/18 10:25 08/30/18 10:25 08/30/18 10:16 08/30/18 10:16 General appearance: Present: no acute distress, well-nourished, other (on BiPAP) - EENT Eyes: Present: PERRL, EOM intact - Neck Neck: Present: supple, normal ROM - Respiratory Respiratory effort: normal, labored Respiratory: bilateral: diminished, rhonchi, negative: rales, wheezing - Cardiovascular Rhythm: regular Heart Sounds: Present: S1 & S2 - Extremities Extremities: no ischemia Extremity abnormal: edema - Abdominal General gastrointestinal: soft, non-tender, non-distended, normal bowel sounds - Integumentary Integumentary: Present: clear, warm - Psychiatric Psychiatric: appropriate mood/affect - Neurologic Neurologic: moves all extremities Results - Labs CBC & Chem 7: 08/30/18 09:33 08/30/18 09:33 Labs: Laboratory Last Values WBC 10.0 K/mm3 (4.5-11.0) 08/30/18 09:33 RBC 2.58 M/mm3 (3.65-5.03) L 08/30/18 09:33 Hgb 7.9 gm/dl (10.1-14.3) L 08/30/18 09:33 Hct 23.5 % (30.3-42.9) L 08/30/18 09:33 MCV 91 fl (79-97) 08/30/18 09:33 MCH 30 pg (28-32) 08/30/18 09:33 MCHC 33 % (30-34) 08/30/18 09:33 RDW 20.9 % (13.2-15.2) H 08/30/18 09:33 Plt Count 315 K/mm3 (140-440) 08/30/18 09:33 Lymph % (Auto) 8.0 % (13.4-35.0) L 08/30/18 09:33 [place] % (Auto) 9.7 % (0.0-7.3) H 08/30/18 09:33 Eos % (Auto) 0.0 % (0.0-4.3) 08/30/18 09:33 Baso % (Auto) 0.2 % (0.0-1.8) 08/30/18 09:33 Lymph # 0.8 K/mm3 (1.2-5.4) L 08/30/18 09:33 [place] # 1.0 K/mm3 (0.0-0.8) H 08/30/18 09:33 Eos # 0.0 K/mm3 (0.0-0.4) 08/30/18 09:33 Baso # 0.0 K/mm3 (0.0-0.1) 08/30/18 09:33 Add Manual Diff Complete 08/24/18 08:30 Total Counted 100 08/24/18 08:30 Seg Neutrophils % 82.1 % (40.0-70.0) H 08/30/18 09:33 Seg Neuts % (Manual) 93.0 % (40.0-70.0) H 08/24/18 08:30 Band Neutrophils % 0 % 08/24/18 08:30 Lymphocytes % (Manual) 6.0 % (13.4-35.0) L 08/24/18 08:30 Reactive Lymphs % (Man) 0 % 08/24/18 08:30 Monocytes % (Manual) 1.0 % (0.0-7.3) 08/24/18 08:30 Eosinophils % (Manual) 0 % (0.0-4.3) 08/24/18 08:30 Basophils % (Manual) 0 % (0.0-1.8) 08/24/18 08:30 Metamyelocytes % 0 % 08/24/18 08:30 Myelocytes % 0 % 08/24/18 08:30 Promyelocytes % 0 % 08/24/18 08:30 Blast Cells % 0 % 08/24/18 08:30 Nucleated RBC % Not Reportable 08/24/18 08:30 Seg Neutrophils # 8.2 K/mm3 (1.8-7.7) H 08/30/18 09:33 Seg Neutrophils # Man 11.9 K/mm3 (1.8-7.7) H 08/24/18 08:30 Band Neutrophils # 0.0 K/mm3 08/24/18 08:30 Abs Lymphs (Manual) 3262 cells/uL (850-3900) 08/19/18 14:32 Lymphocytes # (Manual) 0.8 K/mm3 (1.2-5.4) L 08/24/18 08:30 Abs React Lymphs (Man) 0.0 K/mm3 08/24/18 08:30 Monocytes # (Manual) 0.1 K/mm3 (0.0-0.8) 08/24/18 08:30 Eosinophils # (Manual) 0.0 K/mm3 (0.0-0.4) 08/24/18 08:30 Basophils # (Manual) 0.0 K/mm3 (0.0-0.1) 08/24/18 08:30 Metamyelocytes # 0.0 K/mm3 08/24/18 08:30 Myelocytes # 0.0 K/mm3 08/24/18 08:30 Promyelocytes # 0.0 K/mm3 08/24/18 08:30 Blast Cells # 0.0 K/mm3 08/24/18 08:30 WBC Morphology Not Reportable 08/24/18 08:30 Hypersegmented Neuts Not Reportable 08/24/18 08:30 Hyposegmented Neuts Not Reportable 08/24/18 08:30 Hypogranular Neuts Not Reportable 08/24/18 08:30 Smudge Cells Not Reportable 08/24/18 08:30 Toxic Granulation Not Reportable 08/24/18 08:30 Toxic Vacuolation Not Reportable 08/24/18 08:30 Dohle Bodies Not Reportable 08/24/18 08:30 Pelger-Huet Anomaly Not Reportable 08/24/18 08:30 Rosy Rods Not Reportable 08/24/18 08:30 Platelet Estimate Consistent w auto 08/24/18 08:30 Clumped Platelets Not Reportable 08/24/18 08:30 Plt Clumps, EDTA Not Reportable 08/24/18 08:30 Large Platelets Not Reportable 08/24/18 08:30 Giant Platelets Not Reportable 08/24/18 08:30 Platelet Satelliting Not Reportable 08/24/18 08:30 Plt Morphology Comment Not Reportable 08/24/18 08:30 RBC Morphology Not Reportable 08/24/18 08:30 Dimorphic RBCs Not Reportable 08/24/18 08:30 Polychromasia Not Reportable 08/24/18 08:30 Hypochromasia Not Reportable 08/24/18 08:30 Poikilocytosis Not Reportable 08/24/18 08:30 Anisocytosis 1+ 08/24/18 08:30 Microcytosis Not Reportable 08/24/18 08:30 Macrocytosis Not Reportable 08/24/18 08:30 Spherocytes Not Reportable 08/24/18 08:30 Pappenheimer Bodies Not Reportable 08/24/18 08:30 Sickle Cells Not Reportable 08/24/18 08:30 Target Cells Not Reportable 08/24/18 08:30 Tear Drop Cells Not Reportable 08/24/18 08:30 Ovalocytes Not Reportable 08/24/18 08:30 Helmet Cells Not Reportable 08/24/18 08:30 Hernandez-Endicott Bodies Not Reportable 08/24/18 08:30 Boomer Rings Not Reportable 08/24/18 08:30 Plummer Cells Not Reportable 08/24/18 08:30 Bite Cells Not Reportable 08/24/18 08:30 Crenated Cell Not Reportable 08/24/18 08:30 Elliptocytes Not Reportable 08/24/18 08:30 Acanthocytes (Spur) Not Reportable 08/24/18 08:30 Rouleaux Not Reportable 08/24/18 08:30 Hemoglobin C Crystals Not Reportable 08/24/18 08:30 Schistocytes Not Reportable 08/24/18 08:30 Malaria parasites Not Reportable 08/24/18 08:30 Ceasar Bodies Not Reportable 08/24/18 08:30 Hem Pathologist Commnt No 08/24/18 08:30 D-Dimer 2768.33 ng/mlDDU (0-234) H 08/15/18 18:31 Heparin Anti-Xa, Unfract Negative (Negative) 08/22/18 15:29 POC ABG pH 7.417 (7.35-7.45) 08/28/18 22:31 POC ABG pCO2 34.4 (35-45) L 08/28/18 22:31 POC ABG pO2 67 (80-105) L 08/28/18 22:31 POC ABG HCO3 22.1 (22-26 mml/L) 08/28/18 22:31 POC ABG Total CO2 23 (23-27mmol/L) 08/28/18 22:31 POC ABG O2 Sat 94 08/28/18 22:31 POC ABG Base Excess -2 ((-2) - (+3)mmol/L) 08/28/18 22:31 VBG pH 7.187 (7.320-7.420) L* 08/15/18 18:19 FiO2 35 % 08/28/18 22:31 Sodium 146 mmol/L (137-145) H 08/30/18 09:33 Potassium 4.0 mmol/L (3.6-5.0) 08/30/18 09:33 Chloride 110.7 mmol/L (98-107) H 08/30/18 09:33 Carbon Dioxide 22 mmol/L (22-30) 08/30/18 09:33 Anion Gap 17 mmol/L 08/30/18 09:33 BUN 56 mg/dL (7-17) H 08/30/18 09:33 Creatinine 1.9 mg/dL (0.7-1.2) H 08/30/18 09:33 Estimated GFR 26 ml/min 08/30/18 09:33 BUN/Creatinine Ratio 29 % 08/30/18 09:33 Glucose 145 mg/dL (65-100) H 08/30/18 09:33 POC Glucose 122 (70-105) H 08/30/18 05:03 Hemoglobin A1c 6.4 % (4-6) H 08/15/18 23:09 Lactic Acid 1.20 mmol/L (0.7-2.0) 08/22/18 15:29 Calcium 9.1 mg/dL (8.4-10.2) 08/30/18 09:33 Phosphorus 4.60 mg/dL (2.5-4.5) H 08/30/18 09:33 Magnesium 2.10 mg/dL (1.7-2.3) 08/30/18 09:33 Total Bilirubin 0.50 mg/dL (0.1-1.2) 08/30/18 09:33 AST 39 units/L (5-40) 08/30/18 09:33 ALT < 5 units/L (7-56) L 08/30/18 09:33 Alkaline Phosphatase 89 units/L (35-129) 08/30/18 09:33 Troponin T 0.317 ng/mL (0.00-0.029) H* D 08/18/18 13:39 C-Reactive Protein 5.00 mg/dL (0.00-1.30) H 08/25/18 05:20 Total Protein 6.7 g/dL (6.3-8.2) 08/30/18 09:33 Albumin 2.7 g/dL (3.9-5) L 08/30/18 09:33 Albumin/Globulin Ratio 0.7 % 08/30/18 09:33 Triglycerides 197 mg/dL (2-149) H 08/22/18 06:45 Cholesterol 87 mg/dL (50-199) 08/15/18 18:31 LDL Cholesterol Direct 4 mg/dL (50-130) L 08/15/18 18:31 HDL Cholesterol 10 mg/dL (40-59) L 08/15/18 18:31 Cholesterol/HDL Ratio 8.70 % 08/15/18 18:31 Total Cortisol 21.4 mcg/dL () 08/25/18 08:52 Urine Color Rosemarie (Yellow) 08/15/18 19:15 Urine Turbidity Cloudy (Clear) 08/15/18 19:15 Urine pH 5.0 (5.0-7.0) 08/15/18 19:15 Ur Specific [place] 1.025 (1.003-1.030) 08/15/18 19:15 Urine Protein 30 mg/dl mg/dL (Negative) 08/15/18 19:15 Urine Glucose (UA) Neg mg/dL (Negative) 08/15/18 19:15 Urine Ketones Neg mg/dL (Negative) 08/15/18 19:15 Urine Blood Mod (Negative) 08/15/18 19:15 Urine Nitrite Neg (Negative) 08/15/18 19:15 Urine Bilirubin Neg (Negative) 08/15/18 19:15 Urine Urobilinogen 2.0 mg/dL (<2.0) 08/15/18 19:15 Ur Leukocyte Esterase Mod (Negative) 08/15/18 19:15 Urine WBC (Auto) 17.0 /HPF (0.0-6.0) H 08/15/18 19:15 Urine RBC (Auto) 5.0 /HPF (0.0-6.0) 08/15/18 19:15 Urine WBC Clumps 2+ /HPF 08/15/18 19:15 Amorphous Crystals 1+ 08/15/18 19:15 Hyaline Casts 54 /LPF 08/15/18 19:15 Granular Casts 14 /LPF 08/15/18 19:15 Urine Mucus Few /HPF 08/15/18 19:15 Salicylates < 0.3 mg/dL (2.8-20.0) L 08/15/18 19:14 Urine Opiates Screen Presumptive positive 08/15/18 19:15 Urine Methadone Screen Presumptive negative 08/15/18 19:15 Acetaminophen < 5.0 ug/mL (10.0-30.0) L 08/15/18 19:14 Ur Barbiturates Screen Presumptive negative 08/15/18 19:15 Ur Phencyclidine Scrn Presumptive negative 08/15/18 19:15 Ur Amphetamines Screen Presumptive negative 08/15/18 19:15 U Benzodiazepines Scrn Presumptive negative 08/15/18 19:15 Urine Cocaine Screen Presumptive negative 08/15/18 19:15 U Marijuana (THC) Screen Presumptive negative 08/15/18 19:15 Drugs of Abuse Note Disclamer 08/15/18 19:15 Heparin-induced Plt Ab Negative (Negative) 08/22/18 15:29 UF Heparin High Dose 0 % Release 08/22/18 15:29 NAZIA UFH Low Dose 0.1 0 % Release 08/22/18 15:29 NAZIA UFH Low Dose 0.5 0 % Release 08/22/18 15:29 Lymph Enumerat CD4/CD8 1.98 (0.86-5.00) 08/19/18 14:32 % CD3 Cells 44 % (57-85) L 08/19/18 14:32 Absolute CD3 Count 1451 cells/uL (840-3060) 08/19/18 14:32 % CD4 Cells 30 % (30-61) 08/19/18 14:32 Absolute CD4 Count 1004 cells/uL (490-1740) 08/19/18 14:32 % CD8 Cells 15 % (12-42) 08/19/18 14:32 Absolute CD8 Count 508 cells/uL (180-1170) 08/19/18 14:32 % CD19 Cells 41 % (6-29) H 08/19/18 14:32 Absolute CD19 Count 1290 cells/uL (110-660) H 08/19/18 14:32 C. difficile Toxin A&B Negative (Negative) 08/19/18 14:00 HIV 1&2 Antibody Rapid Non react (Non React) 08/18/18 13:39 HIV P24 Antigen Non react (Non React) 08/18/18 13:39 Blood Type O POSITIVE 08/25/18 08:52 Antibody Screen Negative 08/25/18 08:52 Crossmatch See Detail 08/25/18 08:52 Active Medications - Current Medications Current Medications: Generic Name Dose Route Start Last Admin Trade Name Freq PRN Reason Stop Dose Admin Acetaminophen 650 mg 08/15/18 22:12 08/24/18 21:30 Tylenol PO 650 mg Q4H PRN Administration Pain MILD(1-3)/Fever >100.5/MONDRAGON Acetaminophen 650 mg 08/16/18 17:01 08/16/18 17:11 Tylenol OR 650 mg Q4H PRN Administration Pain, Mild (1-3) Albuterol 2.5 mg 08/17/18 17:00 Proventil IH Q3HRT PRN Shortness Of Breath Albuterol/Ipratropium 1 ampul 08/20/18 14:00 08/30/18 10:13 Duoneb *Not For Prn Use* IH Not Given Q6HRT LAMAR Lipase/Protease/Amylase 1 each 08/17/18 15:55 Pancresam Elizabeth 10,500 Unit FEEDTUBE PRN PRN For Clogged Feeding Tube Arformoterol Tartrate 15 mcg 08/18/18 20:00 08/30/18 10:13 Brovana Nebu IH 15 mcg Q12HRT LAMAR Administration Budesonide 0.5 mg 08/18/18 20:00 08/30/18 10:13 Pulmicort IH 0.5 mg Q12HRT LAMAR Administration Carvedilol 3.125 mg 08/26/18 15:19 08/29/18 22:54 Coreg PO 3.125 mg BID LAMAR Administration Duloxetine HCl 60 mg 08/16/18 10:00 08/29/18 09:30 Cymbalta PO 60 mg QDAY LAMAR Administration Enoxaparin Sodium 40 mg 08/29/18 22:00 08/29/18 22:53 Lovenox SUB-Q 40 mg QDAY@2200 LAMAR Administration Famotidine 20 mg 08/29/18 10:00 08/29/18 22:54 Pepcid PO 20 mg BID LAMAR Administration Hydralazine HCl 10 mg 08/19/18 13:59 08/29/18 14:22 Apresoline IV 10 mg Q3H PRN Administration Hydralazine HCl 20 mg 08/29/18 18:00 08/30/18 09:29 Apresoline IV 20 mg Q4HR LAMAR Administration Hydrophilic Ointment 1 applic 08/15/18 21:55 Vaseline Lip Therapy TP Q2HR PRN Dry Lips Micafungin Sodium 100 mg/ 100 mls @ 100 mls/hr 08/26/18 11:00 08/30/18 09:30 Sodium Chloride IV 100 mls/hr QDAY LAMAR Administration Protocol Metoclopramide HCl 5 mg 08/15/18 22:50 Reglan IV Q6H PRN Nausea And Vomiting Morphine Sulfate 1 mg 08/29/18 15:29 08/30/18 07:00 Morphine IV 1 mg Q4H PRN Administration Pain, Moderate (4-6) Morphine Sulfate 60 mg 08/30/18 11:00 Ms Contin Er PO Q12HR LAMAR Ondansetron HCl 4 mg 08/15/18 22:12 Zofran IV Q8H PRN Nausea And Vomiting Simple Syrup 15 ml 08/17/18 15:55 Simple Syrup FEEDTUBE PRN PRN Hypoglycemia Simple Syrup 30 ml 08/17/18 15:55 Simple Syrup FEEDTUBE PRN PRN Hypoglycemia Sodium Bicarbonate 325 mg 08/17/18 15:55 Sodium Bicarbonate FEEDTUBE PRN PRN For Clogged Feeding Tube Sodium Chloride 10 ml 08/16/18 10:00 08/30/18 09:30 Sodium Chloride Flush Syringe 10 Ml IV 10 ml BID LAMAR Administration Sodium Chloride 10 ml 08/15/18 22:12 08/25/18 21:35 Sodium Chloride Flush Syringe 10 Ml IV 10 ml PRN PRN Administration LINE FLUSH Nutrition/Malnutrition Assess - Dietary Evaluation Nutrition/Malnutrition Findings: Nutrition Notes Start: 08/17/18 13:57 Freq: Status: Active Protocol: Document 08/24/18 10:51 CP (Rec: 08/24/18 10:59 CP [id number]) Co-Sign 08/24/18 10:51 LP Nutrition Notes Initial or Follow up Reassessment Current Diagnosis Acute Kidney Injury,COPD, Diabetes,Sepsis,Hypertension, Respiratory Failure, Hyperlipidemia Other Pertinent Diagnosis AMS, hypokalemia, NSTEMI, encephalopathy, pneu, hypernatermia, shock liver Current Diet Vital AF 1.2 at 60mL/hr Labs/Tests BUN 64 Cr 2 BG 149 Pertinent Medications Reviewed Height 5 ft 7 in Weight 95.3 kg [place] Body Weight (kg) 61.36 BMI 32.9 Subjective/Other Information Per nurse, TF is stable and Na is WNL. #1 Nutrition Diagnosis Inadequate oral intake Diagnosis Progress(for reassessment Continues documentation) Is patient on ventilator? Yes Is Patient Ambulatory and/or Out of Bed No REE-([place] Jeor-confined to bed) 1824.132 Kcal/Kg value to use for calculation 16 Approximate Energy Requirements Using 1525 kcal/Kg Calculation Used for Recommendations [facility] Additional Notes Protein needs: (2g/kg IBW) 122g/day Fluid needs: 1ml/kcal Nutrition Intervention Change Diet Order: Continue current Nutrition Support: Vital AF 1.2 at 60mL/hr with 150mL flush q4h. Kcal 1,728 Protein (gm) 108 Fluid (mL) 1,168 Goal #1 Tolerate TF Goal #2 Continue to meet at least 75% of nutrient needs via TF Anticipated Discharge Needs: Unable to determine at this time Follow-Up By: 08/31/18 Additional Comments F/U: TF tolerance
[2018-08-30] MEDS ORDERED: DURAGESIC TD SCH (11:00)
[2018-08-30] MEDS ORDERED: MORPHINE IV ONE (11:00)
[2018-08-30] MEDS: ZOFRAN IV PRN (12:22)
[2018-08-30] MEDS: COREG PO SCH (14:35)
[2018-08-30] MEDS: PEPCID PO SCH (14:35)
[2018-08-30] MEDS: CYMBALTA PO SCH (14:35)
[2018-08-30] MEDS: MS CONTIN ER PO SCH (14:36)
--- NOTE | 2018-08-30 14:54 | Progress Note ---
Assessment and Plan - Patient Problems (1) Acute respiratory failure Current Visit: Yes Status: Acute Plan to address problem: Supportive measures, medical therapy for underlying dilated cardiomyopathy. (2) Dilated cardiomyopathy Current Visit: Yes Status: Acute Plan to address problem: Supportive measures, medical therapy for underlying dilated cardiomyopathy. Subjective Date of service: 08/30/18 Principal diagnosis: Acute hypoxemic hypercapnic Resp failure; AE-COPD; Acute kidney injury Interval history: Patient extubated, on BiPAP. Stable sinus rhythm, stable blood pressure. Objective Vital Signs Temp Pulse Pulse Pulse Resp Resp BP 08/30/18 14:16 99 H 30 H 143/77 08/30/18 14:00 98 H 24 161/77 08/30/18 13:46 101 H 21 161/77 08/30/18 13:30 102 H 25 H 158/86 08/30/18 13:16 103 H 29 H 158/86 08/30/18 13:00 103 H 41 H 159/77 08/30/18 12:46 106 H 35 H 159/77 08/30/18 12:30 97 H 31 H 157/82 08/30/18 12:20 08/30/18 12:16 101 H 26 H 157/82 08/30/18 12:00 98.8 F 98 H 100 H 44 H 160/69 08/30/18 11:46 98 H 45 H 154/73 08/30/18 11:30 97 H 42 H 160/69 08/30/18 11:16 98 H 44 H 160/69 08/30/18 11:00 96 H 46 H 165/65 08/30/18 10:46 103 H 45 H 165/65 08/30/18 10:30 96 H 49 H 160/62 08/30/18 10:25 85 37 H 08/30/18 10:16 100 H 42 H 160/62 08/30/18 10:13 90 42 H 08/30/18 10:10 97 H 44 H 160/62 08/30/18 10:00 97 H 45 H 151/109 08/30/18 09:46 98 H 38 H 176/97 08/30/18 09:30 96 H 33 H 151/109 08/30/18 09:29 97 H 151/109 08/30/18 09:16 97 H 25 H 151/109 08/30/18 09:00 97 H 38 H 171/108 08/30/18 08:46 95 H 45 H 171/108 08/30/18 08:30 94 H 25 H 171/108 08/30/18 08:16 131 H 28 H 171/108 08/30/18 08:00 98.6 F 97 H 97 H 34 H 144/115 08/30/18 07:46 95 H 38 H 144/115 08/30/18 07:30 113 H 42 H 152/90 08/30/18 07:16 95 H 39 H 152/90 08/30/18 07:00 102 H 30 H 158/80 08/30/18 06:46 93 H 26 H 158/80 08/30/18 06:30 94 H 22 158/80 08/30/18 06:16 96 H 22 158/80 08/30/18 06:00 94 H 24 162/72 08/30/18 05:46 93 H 29 H 162/72 08/30/18 05:30 94 H 39 H 162/72 08/30/18 05:16 93 H 28 H 162/72 08/30/18 05:00 96 H 35 H 157/74 08/30/18 04:46 95 H 36 H 157/74 08/30/18 04:30 96 H 28 H 157/74 08/30/18 04:16 94 H 23 157/74 08/30/18 04:00 98.4 F 97 H 88 39 H 158/82 08/30/18 03:46 94 H 37 H 158/82 08/30/18 03:30 99 H 41 H 158/77 08/30/18 03:20 99 H 36 H 158/82 08/30/18 03:16 97 H 37 H 155/78 08/30/18 03:00 100 H 52 H 165/67 08/30/18 02:53 105 H 22 08/30/18 02:46 101 H 42 H 165/67 08/30/18 02:38 103 H 22 08/30/18 02:30 104 H 42 H 165/67 08/30/18 02:16 103 H 45 H 165/67 08/30/18 02:00 104 H 21 156/74 08/30/18 01:46 105 H 35 H 156/74 08/30/18 01:30 106 H 46 H 161/85 08/30/18 01:16 105 H 44 H 161/85 08/30/18 01:00 107 H 28 H 136/117 08/30/18 00:46 110 H 39 H 136/117 08/30/18 00:30 111 H 32 H 135/85 08/30/18 00:16 110 H 13 135/85 08/30/18 00:00 111 H 100 H 38 H 147/72 08/29/18 23:46 109 H 21 135/85 08/29/18 23:36 107 H 16 08/29/18 23:30 109 H 16 158/86 08/29/18 23:16 104 H 23 158/86 08/29/18 23:12 99.5 F 08/29/18 23:00 109 H 17 171/81 08/29/18 22:54 104 H 171/81 08/29/18 22:53 105 H 171/81 08/29/18 22:46 103 H 35 H 171/81 08/29/18 22:30 104 H 21 160/40 08/29/18 22:16 105 H 34 H 160/40 08/29/18 22:00 106 H 31 H 168/81 08/29/18 21:46 107 H 22 168/81 08/29/18 21:30 107 H 20 168/81 08/29/18 21:16 106 H 22 168/81 08/29/18 21:00 106 H 27 H 151/85 08/29/18 20:46 106 H 34 H 151/85 08/29/18 20:30 107 H 37 H 176/90 08/29/18 20:16 108 H 44 H 176/90 08/29/18 20:14 108 H 25 H 176/90 08/29/18 20:00 98.9 F 104 H 114 H 20 151/70 08/29/18 19:56 108 H 24 08/29/18 19:46 108 H 19 151/70 08/29/18 19:41 106 H 24 08/29/18 19:30 104 H 29 H 151/70 08/29/18 19:16 107 H 43 H 151/70 08/29/18 19:00 107 H 29 H 161/110 08/29/18 18:46 108 H 21 161/110 08/29/18 18:30 109 H 41 H 148/73 08/29/18 18:16 110 H 29 H 148/73 08/29/18 18:00 112 H 20 158/57 08/29/18 17:46 108 H 19 175/79 08/29/18 17:36 99 H 177/89 08/29/18 17:30 102 H 20 179/87 08/29/18 17:16 100 H 16 179/87 08/29/18 17:00 96 H 22 186/81 08/29/18 16:46 97 H 18 186/81 08/29/18 16:30 96 H 37 H 173/85 08/29/18 16:16 94 H 15 173/85 08/29/18 16:00 99.3 F 102 H 103 H 18 173/85 08/29/18 15:46 97 H 28 H 173/85 08/29/18 15:30 96 H 15 176/77 08/29/18 15:15 93 H 23 176/77 08/29/18 15:00 91 H 20 166/64 Pulse Ox 08/30/18 14:16 93 08/30/18 14:00 88 08/30/18 13:46 86 08/30/18 13:30 90 08/30/18 13:16 92 08/30/18 13:00 93 08/30/18 12:46 95 08/30/18 12:30 91 08/30/18 12:20 95 08/30/18 12:16 90 08/30/18 12:00 89 08/30/18 11:46 89 08/30/18 11:30 90 08/30/18 11:16 90 08/30/18 11:00 89 08/30/18 10:46 90 08/30/18 10:30 90 08/30/18 10:25 08/30/18 10:16 98 08/30/18 10:13 08/30/18 10:10 90 08/30/18 10:00 93 08/30/18 09:46 93 08/30/18 09:30 91 08/30/18 09:29 08/30/18 09:16 91 08/30/18 09:00 91 08/30/18 08:46 92 08/30/18 08:30 90 08/30/18 08:16 93 08/30/18 08:00 92 08/30/18 07:46 93 08/30/18 07:30 93 08/30/18 07:16 92 08/30/18 07:00 91 08/30/18 06:46 92 08/30/18 06:30 94 08/30/18 06:16 93 08/30/18 06:00 95 08/30/18 05:46 94 08/30/18 05:30 95 08/30/18 05:16 95 08/30/18 05:00 95 08/30/18 04:46 96 08/30/18 04:30 94 08/30/18 04:16 95 08/30/18 04:00 94 08/30/18 03:46 95 08/30/18 03:30 95 08/30/18 03:20 95 08/30/18 03:16 99 08/30/18 03:00 99 08/30/18 02:53 08/30/18 02:46 100 08/30/18 02:38 08/30/18 02:30 98 08/30/18 02:16 97 08/30/18 02:00 98 08/30/18 01:46 97 08/30/18 01:30 99 08/30/18 01:16 99 08/30/18 01:00 98 08/30/18 00:46 99 08/30/18 00:30 99 08/30/18 00:16 99 08/30/18 00:00 98 08/29/18 23:46 96 08/29/18 23:36 96 08/29/18 23:30 96 08/29/18 23:16 96 08/29/18 23:12 08/29/18 23:00 96 08/29/18 22:54 08/29/18 22:53 08/29/18 22:46 97 08/29/18 22:30 98 08/29/18 22:16 97 08/29/18 22:00 97 08/29/18 21:46 97 08/29/18 21:30 97 08/29/18 21:16 97 08/29/18 21:00 95 08/29/18 20:46 94 08/29/18 20:30 94 08/29/18 20:16 97 08/29/18 20:14 97 08/29/18 20:00 98 08/29/18 19:56 04/01/19 19:46 98 08/29/18 19:41 96 08/29/18 19:30 96 08/29/18 19:16 96 08/29/18 19:00 96 08/29/18 18:46 08/29/18 18:30 95 08/29/18 18:16 88 08/29/18 18:00 90 08/29/18 17:46 91 08/29/18 17:36 08/29/18 17:30 91 08/29/18 17:16 90 08/29/18 17:00 93 08/29/18 16:46 95 08/29/18 16:30 96 08/29/18 16:16 96 08/29/18 16:00 97 08/29/18 15:46 94 08/29/18 15:30 93 08/29/18 15:15 93 08/29/18 15:00 94 - Physical Examination General: Other (on BiPAP) HEENT: Positive: PERRL, Other (ET tube in place) Neck: Positive: neck supple, trachea midline Cardiac: Positive: Reg Rate and Rhythm Lungs: Positive: Decreased Breath Sounds Neuro: Positive: Weakness Abdomen: Positive: Soft, Active Bowel Sounds Skin: Positive: Clear Extremities: Absent: edema - Labs and Meds Cardiac Enzymes 08/30/18 Range/Units 09:33 AST 39 (5-40) units/L CBC 08/30/18 Range/Units 09:33 WBC 10.0 (4.5-11.0) K/mm3 RBC 2.58 L (3.65-5.03) M/mm3 Hgb 7.9 L (10.1-14.3) gm/dl Hct 23.5 L (30.3-42.9) % Plt Count 315 (140-440) K/mm3 Lymph # 0.8 L (1.2-5.4) K/mm3 [place] # 1.0 H (0.0-0.8) K/mm3 Eos # 0.0 (0.0-0.4) K/mm3 Baso # 0.0 (0.0-0.1) K/mm3 Comprehensive Metabolic Panel 08/30/18 Range/Units 09:33 Sodium 146 H (137-145) mmol/L Potassium 4.0 (3.6-5.0) mmol/L Chloride 110.7 H (98-107) mmol/L Carbon Dioxide 22 (22-30) mmol/L BUN 56 H (7-17) mg/dL Creatinine 1.9 H (0.7-1.2) mg/dL Glucose 145 H (65-100) mg/dL Calcium 9.1 (8.4-10.2) mg/dL AST 39 (5-40) units/L ALT < 5 L (7-56) units/L Alkaline Phosphatase 89 (35-129) units/L Total Protein 6.7 (6.3-8.2) g/dL Albumin 2.7 L (3.9-5) g/dL - Allied health notes Allied health notes reviewed: nursing
--- NOTE | 2018-08-30 17:45 | Progress Note ---
Assessment and Plan Cultures: 08/15/2018 blood culture: Camryn glabrata 1 of 4 08/15/2018 sputum culture: MSSA and Escherichia coli, wade susceptible 08/18/2018 blood culture: no growth 08/18/2018 urine culture: neg 08/22/2018 blood culture: no growth 08/25/2018 blood culture: no growth today A/P: 68-year-old female with COPD, arthritis, history of multiple spinal surgeries was brought to the emergency room on 08/15/2018 with altered mental status: 1) Sepsis with septic shock: resolved. 2) Camryn glabrata fungemia: Etiology is unclear. Patient without any history of indwelling PICC line, TPN or immunocompromised status. reporting severe explosive diarrhea, N/V before admission after taken 4 days of amoxicillin for dental implant on 07/29/2018 and had a EGD / colonoscopy on 08/08/[address] [place] [address] Alcantara. I reviewed report - mild chronic gastritis, focal intestinal metaplasia, squamocolumnar mucosa with mild reflux-type changes, and tubular adenoma. -s/p fluconazole 800 mg loading dose then micafungin, s/p amphotericin D6 on 08/26 -serum Crypto negative. -08/15/2018 blood culture: Camryn glabrata -08/18/2018 blood culture: no growth today -CTA chest showed limited study due to respiratory motion artifact. No evidence of pulmonary embolism. Abnormal bilateral lung consolidation which may represent pulmonary edema or pneumonia. Mild cardiomegaly. Indeterminant mediastinal lymph nodes. -CT abdomen showed extensive bilateral lower lobe pulmonary infiltrates, rectal tube and Dodge catheter noted. NG tube at gastric antrum. Left hip prosthesis Extensive degenerative changes noted lumbar spine -TTE EF 25-30% no vegetations -HIV neg/ CD4 1004 -reviewed CT chest abd done 01/05/2019 showed cholecystectomy, mild fatty liver, postoperative changes of lumbar laminectomy with non specific fluid, 9 mm LLL pulmonary nodule which was compared to previous CT and was stable. -CRP 10-->5 3) Acute renal failure: On admission: Nephrology following. 4) Bilateral pneumonia: DDx aspiration pneumonia v/s CAP. Causing acute respiratory failure. Chest x-ray shows reticular nodular infiltrates, some of these appear to be chronic and would also present in 2011. CTA chest showed limited study due to respiratory motion artifact. No evidence of pulmonary embolism. Abnormal bilateral lung consolidation which may represent pulmonary edema or pneumonia. Mild cardiomegaly. Indeterminant mediastinal lymph nodes. -Sputum culture 08/15 MSSA and Escherichia coli, wade susceptible. completed abx. 5) Right maxillary sinusitis: received empiric abx. 6) Acute encephalopathy: Likely multifactorial. CT head unremarkable for acute intracranial process. currently alert follows commands intermittently. 7) New onset cardiomyopathy, LVEF 25-30% this admission. 8) H/O left hip prosthesis ? XR no effusion. CT no enhancement Recs: continue micafungin IV ending 09/01/2018 to complete a total of 14 days of antifungals from negative blood culture MD [facility] C: [phone] O: [phone] F: [phone] Subjective Date of service: 08/30/18 Principal diagnosis: Acute hypoxemic hypercapnic Resp failure; AE-COPD; Acute kidney injury Interval history: No fever. Drowsy, remains on high flow. Objective - Exam Narrative Exam: Physical Exam: Constitutional: drowsy, on high flow oxygen. Head, Ears, Nose: Normocephalic, atraumatic. External ears, nose normal Eyes: Conjunctivae/corneas clear. No icterus. No ptosis. Neck: Supple, no meningeal signs Oral: mucosa dry, no ulcers Cardiovascular: S1, S2 normal. Respiratory: Good air entry, clear to auscultation bilaterally GI: Soft, non-tender; bowel sounds normal. No peritoneal signs Musculoskeletal: No pedal edema, no cyanosis. Skin: No rash or abscess Hem/Lymphatic: No palpable cervical or supraclavicular nodes. No lymphangitis Psych: no agitation Neurological: drowsy - Constitutional Vitals: Vital Signs Temp Pulse Resp BP Pulse Ox 98.0 F 106 H 22 149/74 92 08/30/18 14:00 08/30/18 16:46 08/30/18 16:46 08/30/18 16:46 08/30/18 16:46 Temperature -Last 24 Hours Temperature 98.0 F Temperature 98.8 F Temperature 98.6 F Temperature 98.4 F Temperature 99.5 F Temperature 98.9 F - Labs CBC & Chem 7: 08/30/18 09:33 08/30/18 09:33 Labs: Abnormal lab results 08/29/18 08/29/1819 Range/Units 18:19 23:35 05:03 RBC (3.65-5.03) M/mm3 Hgb (10.1-14.3) gm/dl Hct (30.3-42.9) % RDW (13.2-15.2) % Lymph % (Auto) (13.4-35.0) % [place] % (Auto) (0.0-7.3) % Lymph # (1.2-5.4) K/mm3 [place] # (0.0-0.8) K/mm3 Seg Neutrophils % (40.0-70.0) % Seg Neutrophils # (1.8-7.7) K/mm3 Sodium (137-145) mmol/L Chloride (98-107) mmol/L BUN (7-17) mg/dL Creatinine (0.7-1.2) mg/dL Glucose (65-100) mg/dL POC Glucose 155 H 139 H 122 H (70-105) Phosphorus (2.5-4.5) mg/dL ALT (7-56) units/L Albumin (3.9-5) g/dL 08/30/18 08/30/18 08/30/18 Range/Units 09:33 09:33 11:26 RBC 2.58 L (3.65-5.03) M/mm3 Hgb 7.9 L (10.1-14.3) gm/dl Hct 23.5 L (30.3-42.9) % RDW 20.9 H (13.2-15.2) % Lymph % (Auto) 8.0 L (13.4-35.0) % [place] % (Auto) 9.7 H (0.0-7.3) % Lymph # 0.8 L (1.2-5.4) K/mm3 [place] # 1.0 H (0.0-0.8) K/mm3 Seg Neutrophils % 82.1 H (40.0-70.0) % Seg Neutrophils # 8.2 H (1.8-7.7) K/mm3 Sodium 146 H (137-145) mmol/L Chloride 110.7 H (98-107) mmol/L BUN 56 H (7-17) mg/dL Creatinine 1.9 H (0.7-1.2) mg/dL Glucose 145 H (65-100) mg/dL POC Glucose 149 H (70-105) Phosphorus 4.60 H (2.5-4.5) mg/dL ALT < 5 L (7-56) units/L Albumin 2.7 L (3.9-5) g/dL
[2018-08-30] MEDS: LOVENOX SUB-Q SCH (22:37)
[2018-08-30] MEDS: PEPCID IV SCH (22:40)
[2018-08-30] MEDS ORDERED: PEPCID IV SCH (23:00)
[2018-08-31] MEDS: COREG PO SCH ×3 (01:28→21:22)
[2018-08-31] MEDS: MS CONTIN ER PO SCH (01:28)
[2018-08-31] MEDS: DUONEB *Not for PRN Use IH SCH ×4 (02:34→20:30)
[2018-08-31] MEDS: APRESOLINE IV SCH ×6 (02:38→21:23)
[2018-08-31] MEDS: MORPHINE IV PRN ×4 (06:10→21:32)
--- NOTE | 2018-08-31 07:03 | Progress Note ---
Assessment and Plan 1. Acute kidney injury: Vasomotor CHANDANA, likely ATN. Creatinine level is better. Monitor renal function. Renal prognosis is guarded. Avoid nephrotoxic agents. Meds dosage based on GFR. 2. FEN: Hypernatremia, diuril. Metabolic acidosis, improved. 3. Bladder retention: S/p manrique catheter. 4. Acute encephalopathy. 5. Respiratory failure: S/p extubated. 6. Sepsis: Followed by ID. 7. Hypotension: Improved. 8. Dilated cardiomyopathy with systolic LV dysfunction. 9. Anemia: S/p PRBC. D/w her at the bedside. Subjective Date of service: 08/31/18 Principal diagnosis: Acute hypoxemic hypercapnic Resp failure; AE-COPD; Acute kidney injury Interval history: Patient was seen and examined at the bedside. Objective - Vital Signs Vital signs: Vital Signs - 12hr 08/30/18 08/30/18 08/30/18 19:10 19:16 19:18 Temperature Pulse Rate 97 H 100 H Pulse Rate [ Anterior Bilateral Throughout] Pulse Rate [ Apical] Respiratory 24 Rate Respiratory Rate [Anterior Bilateral Throughout] Respiratory Rate [Left Lower Abdomen] Blood Pressure 155/75 155/75 O2 Sat by Pulse 95 95 Oximetry 08/30/18 08/30/18 08/30/18 19:22 19:30 19:46 Temperature Pulse Rate 97 H 105 H Pulse Rate [ 97 H Anterior Bilateral Throughout] Pulse Rate [ Apical] Respiratory 37 H 29 H Rate Respiratory 27 H Rate [Anterior Bilateral Throughout] Respiratory Rate [Left Lower Abdomen] Blood Pressure 155/75 146/79 O2 Sat by Pulse 96 97 Oximetry 08/30/18 08/30/18 08/30/18 20:00 20:16 20:30 Temperature 99.7 F H Pulse Rate 100 H 102 H 103 H Pulse Rate [ Anterior Bilateral Throughout] Pulse Rate [ 105 H Apical] Respiratory 31 H 39 H 34 H Rate Respiratory Rate [Anterior Bilateral Throughout] Respiratory 21 Rate [Left Lower Abdomen] Blood Pressure 150/67 151/69 151/69 O2 Sat by Pulse 97 96 92 Oximetry 08/30/18 08/30/18 08/30/18 20:38 20:46 21:00 Temperature Pulse Rate 102 H 107 H 100 H Pulse Rate [ Anterior Bilateral Throughout] Pulse Rate [ Apical] Respiratory 37 H 26 H 37 H Rate Respiratory Rate [Anterior Bilateral Throughout] Respiratory Rate [Left Lower Abdomen] Blood Pressure 151/69 145/69 147/67 O2 Sat by Pulse 93 93 93 Oximetry 08/30/18 08/30/18 08/30/18 21:16 21:30 21:46 Temperature Pulse Rate 99 H 98 H 100 H Pulse Rate [ Anterior Bilateral Throughout] Pulse Rate [ Apical] Respiratory 31 H 31 H 22 Rate Respiratory Rate [Anterior Bilateral Throughout] Respiratory Rate [Left Lower Abdomen] Blood Pressure 145/69 163/72 147/67 O2 Sat by Pulse 92 91 92 Oximetry 08/30/18 08/30/18 08/30/18 22:00 22:16 22:30 Temperature Pulse Rate 97 H 96 H 106 H Pulse Rate [ Anterior Bilateral Throughout] Pulse Rate [ Apical] Respiratory 30 H 30 H 23 Rate Respiratory Rate [Anterior Bilateral Throughout] Respiratory Rate [Left Lower Abdomen] Blood Pressure 163/72 163/72 165/96 O2 Sat by Pulse 94 94 93 Oximetry 08/30/18 08/30/18 08/30/18 22:33 22:46 23:00 Temperature Pulse Rate 105 H 107 H 106 H Pulse Rate [ Anterior Bilateral Throughout] Pulse Rate [ Apical] Respiratory 21 40 H Rate Respiratory Rate [Anterior Bilateral Throughout] Respiratory Rate [Left Lower Abdomen] Blood Pressure 165/96 165/96 165/96 O2 Sat by Pulse 94 93 Oximetry 08/30/18 08/30/18 08/30/18 23:16 23:30 23:42 Temperature Pulse Rate 110 H 110 H Pulse Rate [ Anterior Bilateral Throughout] Pulse Rate [ Apical] Respiratory 37 H 35 H 42 H Rate Respiratory Rate [Anterior Bilateral Throughout] Respiratory Rate [Left Lower Abdomen] Blood Pressure 165/96 165/96 O2 Sat by Pulse 93 95 Oximetry 08/30/18 08/30/18 08/31/18 23:46 23:59 00:00 Temperature 99.4 F Pulse Rate 108 H 107 H Pulse Rate [ Anterior Bilateral Throughout] Pulse Rate [ 107 H Apical] Respiratory 34 H 25 H Rate Respiratory Rate [Anterior Bilateral Throughout] Respiratory 42 H Rate [Left Lower Abdomen] Blood Pressure 160/76 160/76 O2 Sat by Pulse 95 95 Oximetry 08/31/18 08/31/18 08/31/18 00:12 00:16 00:30 Temperature Pulse Rate 100 H 100 H Pulse Rate [ Anterior Bilateral Throughout] Pulse Rate [ Apical] Respiratory 35 H 32 H 35 H Rate Respiratory Rate [Anterior Bilateral Throughout] Respiratory Rate [Left Lower Abdomen] Blood Pressure 146/84 150/66 O2 Sat by Pulse 94 94 Oximetry 08/31/18 08/31/18 08/31/18 00:46 01:00 01:16 Temperature Pulse Rate 105 H 95 H 97 H Pulse Rate [ Anterior Bilateral Throughout] Pulse Rate [ Apical] Respiratory 36 H 33 H 31 H Rate Respiratory Rate [Anterior Bilateral Throughout] Respiratory Rate [Left Lower Abdomen] Blood Pressure 146/84 146/84 150/66 O2 Sat by Pulse 94 94 94 Oximetry 08/31/18 08/31/18 08/31/18 01:30 01:46 02:00 Temperature Pulse Rate 99 H 101 H 103 H Pulse Rate [ Anterior Bilateral Throughout] Pulse Rate [ Apical] Respiratory 31 H 23 30 H Rate Respiratory Rate [Anterior Bilateral Throughout] Respiratory Rate [Left Lower Abdomen] Blood Pressure 150/66 150/64 150/64 O2 Sat by Pulse 96 96 96 Oximetry 08/31/18 08/31/18 08/31/18 02:16 02:30 02:36 Temperature Pulse Rate 97 H 96 H Pulse Rate [ 98 H Anterior Bilateral Throughout] Pulse Rate [ Apical] Respiratory 34 H 35 H Rate Respiratory 26 H Rate [Anterior Bilateral Throughout] Respiratory Rate [Left Lower Abdomen] Blood Pressure 150/64 150/64 O2 Sat by Pulse 94 95 Oximetry 08/31/18 08/31/18 08/31/18 02:38 02:46 03:00 Temperature Pulse Rate 96 H 98 H 102 H Pulse Rate [ Anterior Bilateral Throughout] Pulse Rate [ Apical] Respiratory 30 H 31 H Rate Respiratory Rate [Anterior Bilateral Throughout] Respiratory Rate [Left Lower Abdomen] Blood Pressure 171/63 171/63 171/63 O2 Sat by Pulse 96 94 Oximetry 08/31/18 08/31/18 08/31/18 03:16 03:30 03:46 Temperature Pulse Rate 110 H 110 H 108 H Pulse Rate [ Anterior Bilateral Throughout] Pulse Rate [ Apical] Respiratory 40 H 37 H 28 H Rate Respiratory Rate [Anterior Bilateral Throughout] Respiratory Rate [Left Lower Abdomen] Blood Pressure 142/41 142/41 142/41 O2 Sat by Pulse 93 95 94 Oximetry 08/31/18 08/31/18 08/31/18 04:00 04:16 04:30 Temperature 99.0 F Pulse Rate 107 H 107 H 107 H Pulse Rate [ Anterior Bilateral Throughout] Pulse Rate [ Apical] Respiratory 23 35 H 39 H Rate Respiratory Rate [Anterior Bilateral Throughout] Respiratory Rate [Left Lower Abdomen] Blood Pressure 142/41 143/67 148/73 O2 Sat by Pulse 97 96 96 Oximetry 08/31/18 08/31/18 08/31/18 04:46 05:00 05:16 Temperature Pulse Rate 105 H 107 H 101 H Pulse Rate [ Anterior Bilateral Throughout] Pulse Rate [ Apical] Respiratory 35 H 25 H 25 H Rate Respiratory Rate [Anterior Bilateral Throughout] Respiratory Rate [Left Lower Abdomen] Blood Pressure 148/73 151/77 151/77 O2 Sat by Pulse 97 97 97 Oximetry 08/31/18 08/31/18 08/31/18 05:30 05:46 06:00 Temperature Pulse Rate 105 H 106 H 106 H Pulse Rate [ Anterior Bilateral Throughout] Pulse Rate [ Apical] Respiratory 34 H 21 35 H Rate Respiratory Rate [Anterior Bilateral Throughout] Respiratory Rate [Left Lower Abdomen] Blood Pressure 151/77 149/70 162/99 O2 Sat by Pulse 96 97 95 Oximetry 08/31/18 08/31/18 08/31/18 06:10 06:16 06:30 Temperature Pulse Rate 106 H 106 H 109 H Pulse Rate [ Anterior Bilateral Throughout] Pulse Rate [ Apical] Respiratory 30 H 30 H Rate Respiratory Rate [Anterior Bilateral Throughout] Respiratory Rate [Left Lower Abdomen] Blood Pressure 162/99 162/99 160/80 O2 Sat by Pulse 96 95 Oximetry 08/31/18 06:46 Temperature Pulse Rate 108 H Pulse Rate [ Anterior Bilateral Throughout] Pulse Rate [ Apical] Respiratory 42 H Rate Respiratory Rate [Anterior Bilateral Throughout] Respiratory Rate [Left Lower Abdomen] Blood Pressure 160/80 O2 Sat by Pulse 95 Oximetry - General Appearance General appearance: well-developed, appears stated age, other (not in distress) EENT: ATNC, PERRL Neck: supple Respiratory: Present: Clear to Ascultation Cardiology: regular, S1S2, no murmurs Gastrointestinal: normoactive bowel sounds, no tenderness, no distended Integumentary: no rash Neurologic: other (alert, not following any command) Musculoskeletal: other (1+ edema of both LEs noted) - Lab 08/30/18 09:33 08/31/18 08:40 Most recent lab results Calcium 9.1 mg/dL (8.4-10.2) 08/30/18 09:33 Phosphorus 4.60 mg/dL (2.5-4.5) H 08/30/18 09:33 Magnesium 2.10 mg/dL (1.7-2.3) 08/30/18 09:33 Medications & Allergies - Medications Allergies/Adverse Reactions: Allergies No Known Allergies Allergy (Unverified 08/15/18 16:49) Home Medications: Home Medications Medication Instructions Recorded Confirmed Last Taken Type Carvedilol 6.25 mg PO BID 08/15/18 08/15/18 Unknown History DULoxetine 60 mg PO QDAY 08/15/18 08/15/18 Unknown History Gabapentin 600 mg PO Q6HR PRN 08/15/18 08/15/18 Unknown History Methylphenidate 5 mg PO TID 08/15/18 08/15/18 Unknown History Morphabond ER 60 mg PO Q12HR 08/15/18 08/15/18 Unknown History Pravastatin Sodium 10 mg PO QDAY 08/15/18 08/15/18 Unknown History Tizanidine HCl 4 mg PO Q12HR 08/15/18 08/15/18 Unknown History oxyCODONE /ACETAMINOPHEN 7.5 - 325 mg PO Q8HR 08/15/18 08/15/18 Unknown History ALBUTEROL Inhaler(NF) 90 mcg IH TID 08/29/18 08/29/18 Unknown History Omeprazole-Bicarb 40-1,100 Cap 40 mg PO DAILY 08/29/18 08/29/18 Unknown History Active Medications: Generic Name Dose Route Start Last Admin Trade Name Freq PRN Reason Stop Dose Admin Acetaminophen 650 mg 08/15/18 22:12 08/24/18 21:30 Tylenol PO 650 mg Q4H PRN Administration Pain MILD(1-3)/Fever >100.5/MONDRAGON Acetaminophen 650 mg 08/16/18 17:01 08/16/18 17:11 Tylenol MT 650 mg Q4H PRN Administration Pain, Mild (1-3) Albuterol 2.5 mg 08/17/18 17:00 Proventil IH Q3HRT PRN Shortness Of Breath Albuterol/Ipratropium 1 ampul 08/20/18 14:00 08/31/18 02:34 Duoneb *Not For Prn Use* IH 1 ampul Q6HRT LAMAR Administration Lipase/Protease/Amylase 1 each 08/17/18 15:55 Pancresam Elizabeth 10,500 Unit FEEDTUBE PRN PRN For Clogged Feeding Tube Arformoterol Tartrate 15 mcg 08/18/18 20:00 08/30/18 19:21 Brovana Nebu IH 15 mcg Q12HRT LAMAR Administration Budesonide 0.5 mg 08/18/18 20:00 08/30/18 19:22 Pulmicort IH 0.5 mg Q12HRT LAMAR Administration Carvedilol 3.125 mg 08/26/18 15:19 08/31/18 01:28 Coreg PO Not Given BID LAMAR Duloxetine HCl 60 mg 08/16/18 10:00 08/30/18 14:35 Cymbalta PO Not Given QDAY LAMAR Enoxaparin Sodium 40 mg 08/29/18 22:00 08/30/18 22:37 Lovenox SUB-Q 40 mg QDAY@2200 LAMAR Administration Famotidine 10 mg 08/30/18 23:00 08/30/18 22:40 Pepcid IV 10 mg BID [facility] Administration Fentanyl 25 mcg 08/30/18 11:00 08/30/18 10:53 Duragesic TD 25 mcg Q3D LAMAR Administration Hydralazine HCl 10 mg 08/19/18 13:59 08/29/18 14:22 Apresoline IV 10 mg Q3H PRN Administration Hydralazine HCl 20 mg 08/29/18 18:00 08/31/18 06:10 Apresoline IV 20 mg Q4HR [facility] Administration Hydrophilic Ointment 1 applic 08/15/18 21:55 Vaseline Lip Therapy TP Q2HR PRN Dry Lips Micafungin Sodium 100 mg/ 100 mls @ 100 mls/hr 08/26/18 11:00 08/30/18 09:30 Sodium Chloride IV 100 mls/hr QDAY LAMAR Administration Protocol Metoclopramide HCl 5 mg 08/15/18 22:50 Reglan IV Q6H PRN Nausea And Vomiting Morphine Sulfate 1 mg 08/29/18 15:29 08/31/18 06:10 Morphine IV 1 mg Q4H PRN Administration Pain, Moderate (4-6) Morphine Sulfate 60 mg 08/30/18 11:00 08/31/18 01:28 Ms Contin Er PO Not Given Q12HR [facility] Ondansetron HCl 4 mg 08/15/18 22:12 08/30/18 12:22 Zofran IV 4 mg Q8H PRN Administration Nausea And Vomiting Simple Syrup 15 ml 08/17/18 15:55 Simple Syrup FEEDTUBE PRN PRN Hypoglycemia Simple Syrup 30 ml 08/17/18 15:55 Simple Syrup FEEDTUBE PRN PRN Hypoglycemia Sodium Bicarbonate 325 mg 08/17/18 15:55 Sodium Bicarbonate FEEDTUBE PRN PRN For Clogged Feeding Tube Sodium Chloride 10 ml 08/16/18 10:00 08/30/18 22:40 Sodium Chloride Flush Syringe 10 Ml IV 10 ml BID LAMAR Administration Sodium Chloride 10 ml 08/15/18 22:12 08/25/18 21:35 Sodium Chloride Flush Syringe 10 Ml IV 10 ml PRN PRN Administration LINE FLUSH
[2018-08-31] MEDS: BROVANA NEBU IH SCH ×2 (07:26→20:31)
[2018-08-31] MEDS: PULMICORT IH SCH ×2 (07:26→20:31)
[2018-08-31] MEDS: PEPCID PO SCH ×2 (07:33→21:22)
--- NOTE | 2018-08-31 08:56 | Progress Note ---
Assessment and Plan Severe sepsis with septic shock Intermittent fevers and hypotension -Fungemia on Micafungin Acute hypoxic-hypercapnic respiratory failure on NIPPV h/o COPD Acute kidney injury, rising creatinine levels Acute encephalopathy( toxic-metabolic)- much improved Aspiration pneumonia/CAP New onset cardiomyopathy, LVEF 25-30% this admission Previous echo 03/30/2016 at [facility] revealed normal LVEF Previous stress MPI 03/29/2016 at [facility] revealed no ischemia Abnormal ECG showing LBBB, chronic Anemia s/p PRBC with appropriate response -Recent EGD at [facility] 08/08/2018 revealing irregular Z line, gastritis and small hiatal hernia Recent colonoscopy at [facility] 08/08/2018 revealing sigmoid polyp, transverse colon polyps, inflamed hemorrhoids and diverticulosis E.coli/Staph pneumonia Thrombocytopenia resolved -Continue NIPPV -Wean supplemental oxygen to keep O2 sats 88-90% -Oxygen restrictive strategies -Antibiotics/antifungal to complete course -Hypotonic solution for hypernatremia -Speech language pathologist for dysphagia screen - agitation and analgesia management -Monitor renal indices -Cardioprotective measures -Stress ulcer prophylaxis -VTE prophylaxis, SCDs - enoxaparin -Aspiration precautions -Accuchecks with glycemic control. Target glucose of 140-180 mg/dL -Continue bronchodilators with pulmonary hygiene per RT -Maintenance of sleep -wake cycle -Mobility program -Influenza and pneumonia vaccination per protocol ..care plan discussed at length with RN/RT at the bedside ...discussed care plan with ICU team on ICU-IDT rounds Discussed with the at the bedside. Updated him and care plan discussed. Continue to monitor in the ICU for another 24 hours Fentanyl patch for pain management PROGNOSIS :GUARDED CONDITION: CRITICAL CODE STATUS: FULL CODE The high probability of a clinically significant, sudden or life-threatening deterioration of the [respiratory, cardiovascular, renal] system(s) required my full and direct attention, intervention and personal management. The aggregate critical care time was [35] minutes without overlap. Time includes spent on; [x] Data Review and interpretation [x] Patient assessment and monitoring of vital signs [x] Documentation [x] Medication orders and management Subjective Date of service: 08/31/18 Principal diagnosis: Acute hypoxemic hypercapnic Resp failure; AE-COPD; Acute kidney injury Interval history: Follow up: Aspiration PNA, Abnormal CXR, Hypotension, Acute renal failure, Acute encephaloapthy, Acute hypoxemic respiratory failure onMVS Seen and examined. Vitals, labs, medications, chart and imaging reviewed. 24 hours events reviewed. Extubated yesterday, late in the evening she became more tachypnic, BIPAP started Agitation on going per RN. No fevers, no vomiting, on BIPAP, spontaneous eye opening, moving all extremities Very restless Objective Vital Signs - 12hr 08/30/18 08/30/18 08/30/18 21:00 21:16 21:30 Temperature Pulse Rate 100 H 99 H 98 H Pulse Rate [ Anterior Bilateral Throughout] Pulse Rate [ Apical] Respiratory 37 H 31 H 31 H Rate Respiratory Rate [Anterior Bilateral Throughout] Respiratory Rate [Left Lower Abdomen] Blood Pressure 147/67 145/69 163/72 O2 Sat by Pulse 93 92 91 Oximetry 08/30/18 08/30/18 08/30/18 21:46 22:00 22:16 Temperature Pulse Rate 100 H 97 H 96 H Pulse Rate [ Anterior Bilateral Throughout] Pulse Rate [ Apical] Respiratory 22 30 H 30 H Rate Respiratory Rate [Anterior Bilateral Throughout] Respiratory Rate [Left Lower Abdomen] Blood Pressure 147/67 163/72 163/72 O2 Sat by Pulse 92 94 94 Oximetry 08/30/18 08/30/18 08/30/18 22:30 22:33 22:46 Temperature Pulse Rate 106 H 105 H 107 H Pulse Rate [ Anterior Bilateral Throughout] Pulse Rate [ Apical] Respiratory 23 21 Rate Respiratory Rate [Anterior Bilateral Throughout] Respiratory Rate [Left Lower Abdomen] Blood Pressure 165/96 165/96 165/96 O2 Sat by Pulse 93 94 Oximetry 08/30/18 08/30/18 08/30/18 23:00 23:16 23:30 Temperature Pulse Rate 106 H 110 H 110 H Pulse Rate [ Anterior Bilateral Throughout] Pulse Rate [ Apical] Respiratory 40 H 37 H 35 H Rate Respiratory Rate [Anterior Bilateral Throughout] Respiratory Rate [Left Lower Abdomen] Blood Pressure 165/96 165/96 165/96 O2 Sat by Pulse 93 93 95 Oximetry 08/30/18 08/30/18 08/30/18 23:42 23:46 23:59 Temperature 99.4 F Pulse Rate 108 H Pulse Rate [ Anterior Bilateral Throughout] Pulse Rate [ Apical] Respiratory 42 H 34 H Rate Respiratory Rate [Anterior Bilateral Throughout] Respiratory Rate [Left Lower Abdomen] Blood Pressure 160/76 O2 Sat by Pulse 95 Oximetry 08/31/18 08/31/18 08/31/18 00:00 00:12 00:16 Temperature Pulse Rate 107 H 100 H Pulse Rate [ Anterior Bilateral Throughout] Pulse Rate [ 107 H Apical] Respiratory 25 H 35 H 32 H Rate Respiratory Rate [Anterior Bilateral Throughout] Respiratory 42 H Rate [Left Lower Abdomen] Blood Pressure 160/76 146/84 O2 Sat by Pulse 95 94 Oximetry 08/31/18 08/31/18 08/31/18 00:30 00:46 01:00 Temperature Pulse Rate 100 H 105 H 95 H Pulse Rate [ Anterior Bilateral Throughout] Pulse Rate [ Apical] Respiratory 35 H 36 H 33 H Rate Respiratory Rate [Anterior Bilateral Throughout] Respiratory Rate [Left Lower Abdomen] Blood Pressure 150/66 146/84 146/84 O2 Sat by Pulse 94 94 94 Oximetry 08/31/18 08/31/18 08/31/18 01:16 01:30 01:46 Temperature Pulse Rate 97 H 99 H 101 H Pulse Rate [ Anterior Bilateral Throughout] Pulse Rate [ Apical] Respiratory 31 H 31 H 23 Rate Respiratory Rate [Anterior Bilateral Throughout] Respiratory Rate [Left Lower Abdomen] Blood Pressure 150/66 150/66 150/64 O2 Sat by Pulse 94 96 96 Oximetry 08/31/18 08/31/18 08/31/18 02:00 02:16 02:30 Temperature Pulse Rate 103 H 97 H 96 H Pulse Rate [ Anterior Bilateral Throughout] Pulse Rate [ Apical] Respiratory 30 H 34 H 35 H Rate Respiratory Rate [Anterior Bilateral Throughout] Respiratory Rate [Left Lower Abdomen] Blood Pressure 150/64 150/64 150/64 O2 Sat by Pulse 96 94 95 Oximetry 08/31/18 08/31/18 08/31/18 02:36 02:38 02:46 Temperature Pulse Rate 96 H 98 H Pulse Rate [ 98 H Anterior Bilateral Throughout] Pulse Rate [ Apical] Respiratory 30 H Rate Respiratory 26 H Rate [Anterior Bilateral Throughout] Respiratory Rate [Left Lower Abdomen] Blood Pressure 171/63 171/63 O2 Sat by Pulse 96 Oximetry 08/31/18 08/31/18 08/31/18 03:00 03:16 03:30 Temperature Pulse Rate 102 H 110 H 110 H Pulse Rate [ Anterior Bilateral Throughout] Pulse Rate [ Apical] Respiratory 31 H 40 H 37 H Rate Respiratory Rate [Anterior Bilateral Throughout] Respiratory Rate [Left Lower Abdomen] Blood Pressure 171/63 142/41 142/41 O2 Sat by Pulse 94 93 95 Oximetry 08/31/18 08/31/18 08/31/18 03:46 04:00 04:16 Temperature 99.0 F Pulse Rate 108 H 107 H 107 H Pulse Rate [ Anterior Bilateral Throughout] Pulse Rate [ 108 H Apical] Respiratory 28 H 23 35 H Rate Respiratory Rate [Anterior Bilateral Throughout] Respiratory Rate [Left Lower Abdomen] Blood Pressure 142/41 142/41 143/67 O2 Sat by Pulse 94 97 96 Oximetry 08/31/18 08/31/18 08/31/18 04:30 04:46 05:00 Temperature Pulse Rate 107 H 105 H 107 H Pulse Rate [ Anterior Bilateral Throughout] Pulse Rate [ Apical] Respiratory 39 H 35 H 25 H Rate Respiratory Rate [Anterior Bilateral Throughout] Respiratory Rate [Left Lower Abdomen] Blood Pressure 148/73 148/73 151/77 O2 Sat by Pulse 96 97 97 Oximetry 08/31/18 08/31/18 08/31/18 05:16 05:30 05:46 Temperature Pulse Rate 101 H 105 H 106 H Pulse Rate [ Anterior Bilateral Throughout] Pulse Rate [ Apical] Respiratory 25 H 34 H 21 Rate Respiratory Rate [Anterior Bilateral Throughout] Respiratory Rate [Left Lower Abdomen] Blood Pressure 151/77 151/77 149/70 O2 Sat by Pulse 97 96 97 Oximetry 08/31/18 08/31/18 08/31/18 06:00 06:10 06:16 Temperature Pulse Rate 106 H 106 H 106 H Pulse Rate [ Anterior Bilateral Throughout] Pulse Rate [ Apical] Respiratory 35 H 30 H Rate Respiratory Rate [Anterior Bilateral Throughout] Respiratory 38 H Rate [Left Lower Abdomen] Blood Pressure 162/99 162/99 162/99 O2 Sat by Pulse 95 96 Oximetry 08/31/18 08/31/18 08/31/18 06:30 06:46 07:00 Temperature Pulse Rate 109 H 108 H 103 H Pulse Rate [ Anterior Bilateral Throughout] Pulse Rate [ Apical] Respiratory 30 H 42 H 27 H Rate Respiratory Rate [Anterior Bilateral Throughout] Respiratory Rate [Left Lower Abdomen] Blood Pressure 160/80 160/80 160/80 O2 Sat by Pulse 95 95 97 Oximetry 08/31/18 08/31/18 08/31/18 07:16 07:25 07:26 Temperature Pulse Rate 108 H Pulse Rate [ 107 H Anterior Bilateral Throughout] Pulse Rate [ Apical] Respiratory 30 H Rate Respiratory 25 H Rate [Anterior Bilateral Throughout] Respiratory Rate [Left Lower Abdomen] Blood Pressure 150/76 O2 Sat by Pulse 96 95 Oximetry 08/31/18 08/31/18 08/31/18 07:30 07:45 07:46 Temperature Pulse Rate 102 H 102 H 106 H Pulse Rate [ 107 H Anterior Bilateral Throughout] Pulse Rate [ Apical] Respiratory 28 H 24 Rate Respiratory 22 Rate [Anterior Bilateral Throughout] Respiratory Rate [Left Lower Abdomen] Blood Pressure 162/75 162/75 O2 Sat by Pulse 96 96 Oximetry 08/31/18 08/31/18 08/31/18 07:47 08:00 08:16 Temperature 99.4 F Pulse Rate 108 H 93 H Pulse Rate [ Anterior Bilateral Throughout] Pulse Rate [ 102 H Apical] Respiratory 27 H 31 H 33 H Rate Respiratory Rate [Anterior Bilateral Throughout] Respiratory Rate [Left Lower Abdomen] Blood Pressure 162/75 152/81 O2 Sat by Pulse 97 94 94 Oximetry Constitutional: appears uncomfortable, other (elderly looking CF, normocephalic and atraumatic) Eyes: non-icteric ENT: oropharynx moist, other (NIPPV) Neck: supple, no lymphadenopathy, no JVD, other (no thyromegaly) Effort: mildly labored Ascultation: Bilateral: diminished breath sounds, rales, rhonchi Percussion: Bilateral: not dull Cardiovascular: regular rate and rhythm, other (S1,S2, no murmurs) Gastrointestinal: normoactive bowel sounds, soft, non-tender, non-distended Integumentary: normal Extremities: no cyanosis, no edema, no ischemia or petechiae Neurologic: normal mental status, non-focal exam (grossly), pupils equal and round, CN II-XII normal, motor strength normal and Psychiatric: anxious CBC and BMP: 09/21/18 04:35 09/22/18 04:11 ABG, PT/INR, D-dimer: ABG POC ABG pH 7.417 (7.35-7.45) 08/28/18 22:31 POC ABG pCO2 34.4 (35-45) L 08/28/18 22:31 POC ABG pO2 67 (80-105) L 08/28/18 22:31 POC ABG HCO3 22.1 (22-26 mml/L) 08/28/18 22:31 POC ABG Total CO2 23 (23-27mmol/L) 08/28/18 22:31 POC ABG O2 Sat 94 08/28/18 22:31 PT/INR, D-dimer D-Dimer 2768.33 ng/mlDDU (0-234) H 08/15/18 18:31 Abnormal lab findings: Abnormal Labs 08/15/18 08/15/18 08/15/18 17:52 17:52 17:52 WBC 12.7 H RBC 3.25 L Hgb Hct RDW Plt Count Lymph % (Auto) [place] % (Auto) Lymph # [place] # Seg Neutrophils % Seg Neuts % (Manual) Lymphocytes % (Manual) 6.0 L Nucleated RBC % Seg Neutrophils # Seg Neutrophils # Man Lymphocytes # (Manual) 0.8 L D-Dimer POC ABG pH POC ABG pCO2 POC ABG pO2 VBG pH Sodium Potassium 3.4 L Chloride 94.6 L Carbon Dioxide 17 L BUN 67 H Creatinine 3.5 H Glucose 131 H POC Glucose Hemoglobin A1c Lactic Acid 5.20 H* Calcium 7.6 L Phosphorus AST 887 H ALT 316 H Troponin T C-Reactive Protein Total Protein Albumin 3.1 L Triglycerides LDL Cholesterol Direct HDL Cholesterol Urine WBC (Auto) Salicylates Acetaminophen % CD3 Cells % CD19 Cells Absolute CD19 Count Crossmatch 08/15/18 08/15/18 08/15/18 18:11 18:19 18:31 WBC RBC Hgb Hct RDW Plt Count Lymph % (Auto) [place] % (Auto) Lymph # [place] # Seg Neutrophils % Seg Neuts % (Manual) Lymphocytes % (Manual) Nucleated RBC % Seg Neutrophils # Seg Neutrophils # Man Lymphocytes # (Manual) D-Dimer 2768.33 H POC ABG pH 7.173 L POC ABG pCO2 47.8 H POC ABG pO2 177 H VBG pH 7.187 L* Sodium Potassium Chloride Carbon Dioxide BUN Creatinine Glucose POC Glucose Hemoglobin A1c Lactic Acid Calcium Phosphorus AST ALT Troponin T C-Reactive Protein Total Protein Albumin Triglycerides LDL Cholesterol Direct HDL Cholesterol Urine WBC (Auto) Salicylates Acetaminophen % CD3 Cells % CD19 Cells Absolute CD19 Count Crossmatch 08/15/18 08/15/18 08/15/18 18:31 19:14 19:14 WBC RBC Hgb Hct RDW Plt Count Lymph % (Auto) [place] % (Auto) Lymph # [place] # Seg Neutrophils % Seg Neuts % (Manual) Lymphocytes % (Manual) Nucleated RBC % Seg Neutrophils # Seg Neutrophils # Man Lymphocytes # (Manual) D-Dimer POC ABG pH POC ABG pCO2 POC ABG pO2 VBG pH Sodium Potassium Chloride Carbon Dioxide BUN Creatinine Glucose POC Glucose Hemoglobin A1c Lactic Acid 2.70 H* Calcium Phosphorus AST ALT Troponin T 0.454 H* C-Reactive Protein Total Protein Albumin Triglycerides 356 H LDL Cholesterol Direct 4 L HDL Cholesterol 10 L Urine WBC (Auto) Salicylates < 0.3 L Acetaminophen % CD3 Cells % CD19 Cells Absolute CD19 Count Crossmatch 08/15/18 08/15/18 08/15/18 19:14 19:15 23:09 WBC RBC Hgb Hct RDW Plt Count Lymph % (Auto) [place] % (Auto) Lymph # [place] # Seg Neutrophils % Seg Neuts % (Manual) Lymphocytes % (Manual) Nucleated RBC % Seg Neutrophils # Seg Neutrophils # Man Lymphocytes # (Manual) D-Dimer POC ABG pH POC ABG pCO2 POC ABG pO2 VBG pH Sodium Potassium Chloride Carbon Dioxide BUN Creatinine Glucose POC Glucose Hemoglobin A1c Lactic Acid 3.20 H* Calcium Phosphorus AST ALT Troponin T C-Reactive Protein Total Protein Albumin Triglycerides LDL Cholesterol Direct HDL Cholesterol Urine WBC (Auto) 17.0 H Salicylates Acetaminophen < 5.0 L % CD3 Cells % CD19 Cells Absolute CD19 Count Crossmatch 08/15/18 08/16/18 08/16/18 23:09 01:41 05:38 WBC RBC 3.07 L Hgb 9.8 L Hct 28.7 L RDW Plt Count Lymph % (Auto) [place] % (Auto) Lymph # [place] # Seg Neutrophils % Seg Neuts % (Manual) 84.0 H Lymphocytes % (Manual) 6.0 L Nucleated RBC % 4.0 H Seg Neutrophils # Seg Neutrophils # Man Lymphocytes # (Manual) 0.5 L D-Dimer POC ABG pH 7.323 L POC ABG pCO2 34.7 L POC ABG pO2 78 L VBG pH Sodium Potassium Chloride Carbon Dioxide BUN Creatinine Glucose POC Glucose Hemoglobin A1c 6.4 H Lactic Acid Calcium Phosphorus AST ALT Troponin T C-Reactive Protein Total Protein Albumin Triglycerides LDL Cholesterol Direct HDL Cholesterol Urine WBC (Auto) Salicylates Acetaminophen % CD3 Cells % CD19 Cells Absolute CD19 Count Crossmatch 08/16/18 08/16/18 08/17/18 05:38 22:43 03:42 WBC RBC Hgb Hct RDW Plt Count Lymph % (Auto) [place] % (Auto) Lymph # [place] # Seg Neutrophils % Seg Neuts % (Manual) Lymphocytes % (Manual) Nucleated RBC % Seg Neutrophils # Seg Neutrophils # Man Lymphocytes # (Manual) D-Dimer POC ABG pH POC ABG pCO2 POC ABG pO2 VBG pH Sodium Potassium 2.9 L* 3.1 L 2.9 L* Chloride 108.8 H 111.9 H Carbon Dioxide 17 L 19 L 21 L BUN 62 H 40 H 33 H Creatinine 2.0 H Glucose 139 H 145 H POC Glucose Hemoglobin A1c Lactic Acid Calcium 7.8 L 8.3 L Phosphorus 1.50 L AST 619 H ALT 353 H Troponin T C-Reactive Protein Total Protein 6.1 L Albumin 2.8 L Triglycerides LDL Cholesterol Direct HDL Cholesterol Urine WBC (Auto) Salicylates Acetaminophen % CD3 Cells % CD19 Cells Absolute CD19 Count Crossmatch 08/17/18 08/17/18 08/18/18 11:02 16:42 03:28 WBC RBC Hgb Hct RDW Plt Count Lymph % (Auto) [place] % (Auto) Lymph # [place] # Seg Neutrophils % Seg Neuts % (Manual) Lymphocytes % (Manual) Nucleated RBC % Seg Neutrophils # Seg Neutrophils # Man Lymphocytes # (Manual) D-Dimer POC ABG pH 7.483 H 7.499 H POC ABG pCO2 POC ABG pO2 VBG pH Sodium 147 H Potassium 3.2 L Chloride 115.8 H Carbon Dioxide BUN 23 H Creatinine Glucose 121 H POC Glucose Hemoglobin A1c Lactic Acid Calcium 8.1 L Phosphorus 2.30 L D AST ALT Troponin T C-Reactive Protein Total Protein Albumin Triglycerides LDL Cholesterol Direct HDL Cholesterol Urine WBC (Auto) Salicylates Acetaminophen % CD3 Cells % CD19 Cells Absolute CD19 Count Crossmatch 08/18/18 08/18/18 08/18/18 04:10 13:39 13:39 WBC RBC Hgb Hct RDW Plt Count Lymph % (Auto) [place] % (Auto) Lymph # [place] # Seg Neutrophils % Seg Neuts % (Manual) Lymphocytes % (Manual) Nucleated RBC % Seg Neutrophils # Seg Neutrophils # Man Lymphocytes # (Manual) D-Dimer POC ABG pH POC ABG pCO2 POC ABG pO2 VBG pH Sodium 147 H Potassium 3.3 L Chloride 111.9 H Carbon Dioxide BUN 21 H Creatinine Glucose 113 H POC Glucose Hemoglobin A1c Lactic Acid Calcium Phosphorus 1.50 L D AST ALT Troponin T 0.317 H* D C-Reactive Protein 10.70 H Total Protein Albumin Triglycerides LDL Cholesterol Direct HDL Cholesterol Urine WBC (Auto) Salicylates Acetaminophen % CD3 Cells % CD19 Cells Absolute CD19 Count Crossmatch 08/18/18 08/19/18 08/19/18 16:51 03:47 04:15 WBC RBC Hgb Hct RDW Plt Count Lymph % (Auto) [place] % (Auto) Lymph # [place] # Seg Neutrophils % Seg Neuts % (Manual) Lymphocytes % (Manual) Nucleated RBC % Seg Neutrophils # Seg Neutrophils # Man Lymphocytes # (Manual) D-Dimer POC ABG pH 7.454 H 7.482 H POC ABG pCO2 POC ABG pO2 65 L VBG pH Sodium 154 H Potassium 3.3 L Chloride 115.1 H Carbon Dioxide BUN 19 H Creatinine Glucose 117 H POC Glucose Hemoglobin A1c Lactic Acid Calcium 7.8 L Phosphorus AST ALT Troponin T C-Reactive Protein Total Protein Albumin Triglycerides LDL Cholesterol Direct HDL Cholesterol Urine WBC (Auto) Salicylates Acetaminophen % CD3 Cells % CD19 Cells Absolute CD19 Count Crossmatch 08/19/18 08/19/18 08/20/18 14:32 16:18 03:51 WBC RBC Hgb Hct RDW Plt Count Lymph % (Auto) [place] % (Auto) Lymph # [place] # Seg Neutrophils % Seg Neuts % (Manual) Lymphocytes % (Manual) Nucleated RBC % Seg Neutrophils # Seg Neutrophils # Man Lymphocytes # (Manual) D-Dimer POC ABG pH 7.483 H POC ABG pCO2 33.4 L POC ABG pO2 51 L 74 L VBG pH Sodium Potassium Chloride Carbon Dioxide BUN Creatinine Glucose POC Glucose Hemoglobin A1c Lactic Acid Calcium Phosphorus AST ALT Troponin T C-Reactive Protein Total Protein Albumin Triglycerides LDL Cholesterol Direct HDL Cholesterol Urine WBC (Auto) Salicylates Acetaminophen % CD3 Cells 44 L % CD19 Cells 41 H Absolute CD19 Count 1290 H Crossmatch 08/20/18 08/21/18 08/21/18 05:25 03:54 05:45 WBC 24.1 H RBC 2.83 L Hgb 8.8 L Hct 26.7 L RDW 15.7 H Plt Count 127 L Lymph % (Auto) [place] % (Auto) Lymph # [place] # Seg Neutrophils % Seg Neuts % (Manual) 94.0 H Lymphocytes % (Manual) 4.0 L Nucleated RBC % 1.0 H Seg Neutrophils # Seg Neutrophils # Man 22.7 H Lymphocytes # (Manual) 1.0 L D-Dimer POC ABG pH POC ABG pCO2 31.9 L POC ABG pO2 66 L VBG pH Sodium 146 H D Potassium Chloride 111.2 H Carbon Dioxide BUN 24 H Creatinine Glucose 141 H POC Glucose Hemoglobin A1c Lactic Acid Calcium 8.1 L Phosphorus AST 65 H ALT 104 H Troponin T C-Reactive Protein Total Protein 6.2 L Albumin 2.6 L Triglycerides LDL Cholesterol Direct HDL Cholesterol Urine WBC (Auto) Salicylates Acetaminophen % CD3 Cells % CD19 Cells Absolute CD19 Count Crossmatch 08/21/18 08/22/18 08/22/18 05:45 06:20 06:45 WBC RBC Hgb Hct RDW Plt Count Lymph % (Auto) [place] % (Auto) Lymph # [place] # Seg Neutrophils % Seg Neuts % (Manual) Lymphocytes % (Manual) Nucleated RBC % Seg Neutrophils # Seg Neutrophils # Man Lymphocytes # (Manual) D-Dimer POC ABG pH POC ABG pCO2 32.9 L POC ABG pO2 VBG pH Sodium Potassium 3.5 L Chloride 109.4 H 112.4 H Carbon Dioxide 21 L 20 L BUN 50 H 61 H Creatinine 2.0 H D 1.9 H Glucose 144 H 154 H POC Glucose Hemoglobin A1c Lactic Acid Calcium 7.6 L 7.8 L Phosphorus AST ALT Troponin T C-Reactive Protein Total Protein 5.3 L Albumin 2.1 L Triglycerides LDL Cholesterol Direct HDL Cholesterol Urine WBC (Auto) Salicylates Acetaminophen % CD3 Cells % CD19 Cells Absolute CD19 Count Crossmatch 08/22/18 08/22/18 08/22/18 06:45 15:29 18:40 WBC RBC Hgb Hct RDW Plt Count Lymph % (Auto) [place] % (Auto) Lymph # [place] # Seg Neutrophils % Seg Neuts % (Manual) Lymphocytes % (Manual) Nucleated RBC % Seg Neutrophils # Seg Neutrophils # Man Lymphocytes # (Manual) D-Dimer POC ABG pH POC ABG pCO2 POC ABG pO2 VBG pH Sodium Potassium Chloride Carbon Dioxide BUN Creatinine Glucose POC Glucose 169 H Hemoglobin A1c Lactic Acid Calcium Phosphorus AST ALT Troponin T C-Reactive Protein 4.70 H Total Protein Albumin Triglycerides 197 H LDL Cholesterol Direct HDL Cholesterol Urine WBC (Auto) Salicylates Acetaminophen % CD3 Cells % CD19 Cells Absolute CD19 Count Crossmatch 08/23/18 08/23/18 08/23/18 03:59 21:19 Unknown WBC 12.1 H RBC 2.29 L Hgb 7.1 L Hct 21.7 L RDW 15.7 H Plt Count 106 L Lymph % (Auto) [place] % (Auto) Lymph # [place] # Seg Neutrophils % Seg Neuts % (Manual) 92.0 H Lymphocytes % (Manual) 4.0 L Nucleated RBC % Seg Neutrophils # Seg Neutrophils # Man 11.1 H Lymphocytes # (Manual) 0.5 L D-Dimer POC ABG pH 7.306 L POC ABG pCO2 31.3 L POC ABG pO2 119 H 75 L VBG pH Sodium Potassium Chloride Carbon Dioxide BUN Creatinine Glucose POC Glucose Hemoglobin A1c Lactic Acid Calcium Phosphorus AST ALT Troponin T C-Reactive Protein Total Protein Albumin Triglycerides LDL Cholesterol Direct HDL Cholesterol Urine WBC (Auto) Salicylates Acetaminophen % CD3 Cells % CD19 Cells Absolute CD19 Count Crossmatch 08/23/18 08/24/18 08/24/18 Unknown 04:18 08:30 WBC 12.8 H RBC 2.24 L Hgb 7.0 L Hct 21.1 L RDW Plt Count Lymph % (Auto) [place] % (Auto) Lymph # [place] # Seg Neutrophils % Seg Neuts % (Manual) 93.0 H Lymphocytes % (Manual) 6.0 L Nucleated RBC % Seg Neutrophils # Seg Neutrophils # Man 11.9 H Lymphocytes # (Manual) 0.8 L D-Dimer POC ABG pH POC ABG pCO2 POC ABG pO2 78 L VBG pH Sodium Potassium Chloride 115.7 H Carbon Dioxide 21 L BUN 64 H Creatinine 2.0 H Glucose 149 H POC Glucose Hemoglobin A1c Lactic Acid Calcium 7.5 L Phosphorus AST ALT Troponin T C-Reactive Protein Total Protein 4.8 L Albumin 2.0 L Triglycerides LDL Cholesterol Direct HDL Cholesterol Urine WBC (Auto) Salicylates Acetaminophen % CD3 Cells % CD19 Cells Absolute CD19 Count Crossmatch 08/24/18 08/24/18 08/24/18 08:30 17:44 18:28 WBC RBC Hgb Hct RDW Plt Count Lymph % (Auto) [place] % (Auto) Lymph # [place] # Seg Neutrophils % Seg Neuts % (Manual) Lymphocytes % (Manual) Nucleated RBC % Seg Neutrophils # Seg Neutrophils # Man Lymphocytes # (Manual) D-Dimer POC ABG pH 7.474 H POC ABG pCO2 POC ABG pO2 61 L VBG pH Sodium Potassium Chloride 108.3 H Carbon Dioxide 20 L BUN 65 H Creatinine 2.0 H Glucose 167 H POC Glucose 164 H Hemoglobin A1c Lactic Acid Calcium 7.7 L Phosphorus AST ALT Troponin T C-Reactive Protein Total Protein 5.3 L Albumin 2.2 L Triglycerides LDL Cholesterol Direct HDL Cholesterol Urine WBC (Auto) Salicylates Acetaminophen % CD3 Cells % CD19 Cells Absolute CD19 Count Crossmatch 08/25/18 08/25/18 08/25/18 03:35 05:20 05:20 WBC RBC Hgb 6.7 L Hct 21.0 L RDW Plt Count Lymph % (Auto) [place] % (Auto) Lymph # [place] # Seg Neutrophils % Seg Neuts % (Manual) Lymphocytes % (Manual) Nucleated RBC % Seg Neutrophils # Seg Neutrophils # Man Lymphocytes # (Manual) D-Dimer POC ABG pH POC ABG pCO2 POC ABG pO2 79 L VBG pH Sodium Potassium Chloride Carbon Dioxide 21 L BUN 71 H Creatinine 3.1 H D Glucose 171 H POC Glucose Hemoglobin A1c Lactic Acid Calcium 7.5 L Phosphorus AST ALT Troponin T C-Reactive Protein Total Protein Albumin Triglycerides LDL Cholesterol Direct HDL Cholesterol Urine WBC (Auto) Salicylates Acetaminophen % CD3 Cells % CD19 Cells Absolute CD19 Count Crossmatch 08/25/18 08/25/18 08/25/18 05:20 08:52 12:42 WBC RBC Hgb Hct RDW Plt Count Lymph % (Auto) [place] % (Auto) Lymph # [place] # Seg Neutrophils % Seg Neuts % (Manual) Lymphocytes % (Manual) Nucleated RBC % Seg Neutrophils # Seg Neutrophils # Man Lymphocytes # (Manual) D-Dimer POC ABG pH POC ABG pCO2 POC ABG pO2 VBG pH Sodium Potassium Chloride Carbon Dioxide BUN Creatinine Glucose POC Glucose 166 H Hemoglobin A1c Lactic Acid Calcium Phosphorus AST ALT Troponin T C-Reactive Protein 5.00 H Total Protein Albumin Triglycerides LDL Cholesterol Direct HDL Cholesterol Urine WBC (Auto) Salicylates Acetaminophen % CD3 Cells % CD19 Cells Absolute CD19 Count Crossmatch See Detail 08/25/18 08/26/18 08/26/18 18:05 00:13 04:53 WBC RBC Hgb Hct RDW Plt Count Lymph % (Auto) [place] % (Auto) Lymph # [place] # Seg Neutrophils % Seg Neuts % (Manual) Lymphocytes % (Manual) Nucleated RBC % Seg Neutrophils # Seg Neutrophils # Man Lymphocytes # (Manual) D-Dimer POC ABG pH POC ABG pCO2 30.9 L POC ABG pO2 70 L VBG pH Sodium Potassium Chloride Carbon Dioxide BUN Creatinine Glucose POC Glucose 121 H 164 H Hemoglobin A1c Lactic Acid Calcium Phosphorus AST ALT Troponin T C-Reactive Protein Total Protein Albumin Triglycerides LDL Cholesterol Direct HDL Cholesterol Urine WBC (Auto) Salicylates Acetaminophen % CD3 Cells % CD19 Cells Absolute CD19 Count Crossmatch 08/26/18 08/26/18 08/26/18 05:42 06:00 06:00 WBC RBC 2.62 L Hgb 7.7 L Hct 23.0 L RDW 22.0 H Plt Count Lymph % (Auto) 6.3 L [place] % (Auto) Lymph # 0.7 L [place] # Seg Neutrophils % 88.1 H Seg Neuts % (Manual) Lymphocytes % (Manual) Nucleated RBC % Seg Neutrophils # 9.6 H Seg Neutrophils # Man Lymphocytes # (Manual) D-Dimer POC ABG pH POC ABG pCO2 POC ABG pO2 VBG pH Sodium Potassium Chloride Carbon Dioxide 21 L BUN 70 H Creatinine 3.3 H Glucose 146 H POC Glucose 149 H Hemoglobin A1c Lactic Acid Calcium 8.0 L Phosphorus AST ALT Troponin T C-Reactive Protein Total Protein Albumin Triglycerides LDL Cholesterol Direct HDL Cholesterol Urine WBC (Auto) Salicylates Acetaminophen % CD3 Cells % CD19 Cells Absolute CD19 Count Crossmatch 08/26/18 08/26/18 08/27/18 11:37 23:54 04:35 WBC RBC 2.50 L Hgb 7.6 L Hct 22.3 L RDW 21.8 H Plt Count Lymph % (Auto) 7.3 L [place] % (Auto) Lymph # 0.7 L [place] # Seg Neutrophils % 85.6 H Seg Neuts % (Manual) Lymphocytes % (Manual) Nucleated RBC % Seg Neutrophils # 8.6 H Seg Neutrophils # Man Lymphocytes # (Manual) D-Dimer POC ABG pH POC ABG pCO2 POC ABG pO2 VBG pH Sodium Potassium Chloride Carbon Dioxide BUN Creatinine Glucose POC Glucose 183 H 150 H Hemoglobin A1c Lactic Acid Calcium Phosphorus AST ALT Troponin T C-Reactive Protein Total Protein Albumin Triglycerides LDL Cholesterol Direct HDL Cholesterol Urine WBC (Auto) Salicylates Acetaminophen % CD3 Cells % CD19 Cells Absolute CD19 Count Crossmatch 08/27/18 08/27/18 08/28/18 04:35 12:17 04:43 WBC RBC Hgb Hct RDW Plt Count Lymph % (Auto) [place] % (Auto) Lymph # [place] # Seg Neutrophils % Seg Neuts % (Manual) Lymphocytes % (Manual) Nucleated RBC % Seg Neutrophils # Seg Neutrophils # Man Lymphocytes # (Manual) D-Dimer POC ABG pH POC ABG pCO2 32.1 L 33.8 L POC ABG pO2 68 L 78 L VBG pH Sodium Potassium Chloride Carbon Dioxide 19 L BUN 67 H Creatinine 2.9 H Glucose 155 H POC Glucose Hemoglobin A1c Lactic Acid Calcium Phosphorus 4.70 H AST ALT Troponin T C-Reactive Protein Total Protein Albumin Triglycerides LDL Cholesterol Direct HDL Cholesterol Urine WBC (Auto) Salicylates Acetaminophen % CD3 Cells % CD19 Cells Absolute CD19 Count Crossmatch 08/28/18 08/28/18 08/28/18 05:03 05:20 05:20 WBC RBC 2.43 L Hgb 7.4 L Hct 21.8 L RDW 20.8 H Plt Count Lymph % (Auto) 7.6 L [place] % (Auto) 8.7 H Lymph # 0.7 L [place] # Seg Neutrophils % 82.9 H Seg Neuts % (Manual) Lymphocytes % (Manual) Nucleated RBC % Seg Neutrophils # Seg Neutrophils # Man Lymphocytes # (Manual) D-Dimer POC ABG pH POC ABG pCO2 POC ABG pO2 VBG pH Sodium Potassium Chloride 107.8 H Carbon Dioxide 21 L BUN 55 H Creatinine 2.0 H Glucose 177 H POC Glucose 160 H Hemoglobin A1c Lactic Acid Calcium Phosphorus AST ALT Troponin T C-Reactive Protein Total Protein Albumin Triglycerides LDL Cholesterol Direct HDL Cholesterol Urine WBC (Auto) Salicylates Acetaminophen % CD3 Cells % CD19 Cells Absolute CD19 Count Crossmatch 08/28/18 08/28/18 08/28/18 12:18 18:58 22:31 WBC RBC Hgb Hct RDW Plt Count Lymph % (Auto) [place] % (Auto) Lymph # [place] # Seg Neutrophils % Seg Neuts % (Manual) Lymphocytes % (Manual) Nucleated RBC % Seg Neutrophils # Seg Neutrophils # Man Lymphocytes # (Manual) D-Dimer POC ABG pH POC ABG pCO2 34.4 L POC ABG pO2 67 L VBG pH Sodium Potassium Chloride Carbon Dioxide BUN Creatinine Glucose POC Glucose 164 H 149 H Hemoglobin A1c Lactic Acid Calcium Phosphorus AST ALT Troponin T C-Reactive Protein Total Protein Albumin Triglycerides LDL Cholesterol Direct HDL Cholesterol Urine WBC (Auto) Salicylates Acetaminophen % CD3 Cells % CD19 Cells Absolute CD19 Count Crossmatch 08/28/18 08/29/18 08/29/18 23:33 05:25 05:25 WBC RBC 2.30 L Hgb 7.0 L Hct 20.9 L RDW 21.0 H Plt Count Lymph % (Auto) 11.5 L [place] % (Auto) 9.2 H Lymph # 0.8 L [place] # Seg Neutrophils % 78.8 H Seg Neuts % (Manual) Lymphocytes % (Manual) Nucleated RBC % Seg Neutrophils # Seg Neutrophils # Man Lymphocytes # (Manual) D-Dimer POC ABG pH POC ABG pCO2 POC ABG pO2 VBG pH Sodium Potassium Chloride 111.1 H Carbon Dioxide BUN 55 H Creatinine 1.8 H Glucose 162 H POC Glucose 143 H Hemoglobin A1c Lactic Acid Calcium Phosphorus AST 46 H ALT < 5 L Troponin T C-Reactive Protein Total Protein 5.7 L Albumin 2.1 L Triglycerides LDL Cholesterol Direct HDL Cholesterol Urine WBC (Auto) Salicylates Acetaminophen % CD3 Cells % CD19 Cells Absolute CD19 Count Crossmatch 08/29/18 08/29/18 08/30/18 18:19 23:35 05:03 WBC RBC Hgb Hct RDW Plt Count Lymph % (Auto) [place] % (Auto) Lymph # [place] # Seg Neutrophils % Seg Neuts % (Manual) Lymphocytes % (Manual) Nucleated RBC % Seg Neutrophils # Seg Neutrophils # Man Lymphocytes # (Manual) D-Dimer POC ABG pH POC ABG pCO2 POC ABG pO2 VBG pH Sodium Potassium Chloride Carbon Dioxide BUN Creatinine Glucose POC Glucose 155 H 139 H 122 H Hemoglobin A1c Lactic Acid Calcium Phosphorus AST ALT Troponin T C-Reactive Protein Total Protein Albumin Triglycerides LDL Cholesterol Direct HDL Cholesterol Urine WBC (Auto) Salicylates Acetaminophen % CD3 Cells % CD19 Cells Absolute CD19 Count Crossmatch 08/30/18 08/30/18 08/30/18 09:33 09:33 11:26 WBC RBC 2.58 L Hgb 7.9 L Hct 23.5 L RDW 20.9 H Plt Count Lymph % (Auto) 8.0 L [place] % (Auto) 9.7 H Lymph # 0.8 L [place] # 1.0 H Seg Neutrophils % 82.1 H Seg Neuts % (Manual) Lymphocytes % (Manual) Nucleated RBC % Seg Neutrophils # 8.2 H Seg Neutrophils # Man Lymphocytes # (Manual) D-Dimer POC ABG pH POC ABG pCO2 POC ABG pO2 VBG pH Sodium 146 H Potassium Chloride 110.7 H Carbon Dioxide BUN 56 H Creatinine 1.9 H Glucose 145 H POC Glucose 149 H Hemoglobin A1c Lactic Acid Calcium Phosphorus 4.60 H AST ALT < 5 L Troponin T C-Reactive Protein Total Protein Albumin 2.7 L Triglycerides LDL Cholesterol Direct HDL Cholesterol Urine WBC (Auto) Salicylates Acetaminophen % CD3 Cells % CD19 Cells Absolute CD19 Count Crossmatch 08/30/18 08/30/18 08/31/18 18:08 23:14 05:16 WBC RBC Hgb Hct RDW Plt Count Lymph % (Auto) [place] % (Auto) Lymph # [place] # Seg Neutrophils % Seg Neuts % (Manual) Lymphocytes % (Manual) Nucleated RBC % Seg Neutrophils # Seg Neutrophils # Man Lymphocytes # (Manual) D-Dimer POC ABG pH POC ABG pCO2 POC ABG pO2 VBG pH Sodium Potassium Chloride Carbon Dioxide BUN Creatinine Glucose POC Glucose 156 H 117 H 133 H Hemoglobin A1c Lactic Acid Calcium Phosphorus AST ALT Troponin T C-Reactive Protein Total Protein Albumin Triglycerides LDL Cholesterol Direct HDL Cholesterol Urine WBC (Auto) Salicylates Acetaminophen % CD3 Cells % CD19 Cells Absolute CD19 Count Crossmatch Allied health notes reviewed: RT
[2018-08-31 09:41] LABS: Calcium 8.9 mg/dL (8.4-10.2)
--- NOTE | 2018-08-31 09:52 | Progress Note ---
Assessment and Plan Assessment and plan: --Acute hypoxic hypercapnic respiratory failure; extubated on high flow o2/BiPAP, f/u speech evaln and diet as tolerated --Anemia;s/p PRBC transfusion hemoglobin today 7.9 monitor,transfuse as needed --Sepsis; secondary to aspiration pneumonia, --Aspiration pneumonia; Continue antibiotics and antifungal per ID a --Hypertension; continue current antihypertensives --Hypernatremia; free water flushes, improved Closely monitor electrolytes, trending down --Hypokalemia; replace with KCl, follow electrolytes --Severe malnutrition/hypoalbuminemia; Nutrition consults and supportive care --Acute kidney injury; probably secondary to ATN avoid nephrotoxins, Nephrology following ----Acute systolic congestive heart failure; Ejection fraction 25-30%, continue current management Cardiology following --Elevated Transaminases; resolved --DVT prophylaxis; Lovenox Consults and recommendations noted and appreciated Plan of care reviewed with the patient's nurse The high probability of a clinically significant, sudden or life threatening deterioration of the [respiratory, cardiology, ID, renal and metabolic] system(s) required my full and direct attention, intervention and personal management. The aggregate critical care time was [31] minutes. This time is in addition to time spent performing reported procedures but includes the following: [x] Data Review and interpretation [x] Patient assessment and monitoring of vital signs [x] Documentation [x] Medication orders and management History Interval history: Patient Seen and examined medical records reviewed Patient feels slightly better still requiring high flow oxygen Confused mild regurgitation, patient's at the bedside Vital Signs reviewed Hospitalist Physical - Constitutional Vitals: Temp Pulse Resp BP Pulse Ox 99.4 F 102 H 32 H 149/80 93 08/31/18 08:00 08/31/18 09:00 08/31/18 09:00 08/31/18 09:00 08/31/18 09:47 General appearance: Present: no acute distress, well-nourished, other (on BiPAP) - EENT Eyes: Present: PERRL, EOM intact - Neck Neck: Present: supple, normal ROM - Respiratory Respiratory effort: normal Respiratory: bilateral: diminished, negative: rales, rhonchi, wheezing - Cardiovascular Rhythm: regular Heart Sounds: Present: S1 & S2 - Extremities Extremities: no ischemia, No edema - Abdominal General gastrointestinal: soft, non-tender, non-distended, normal bowel sounds - Integumentary Integumentary: Present: clear, warm - Psychiatric Psychiatric: agitated, other (confused) - Neurologic Neurologic: CNII-XII intact, moves all extremities Results - Labs CBC & Chem 7: 08/30/18 09:33 08/31/18 08:40 Labs: Laboratory Last Values WBC 10.0 K/mm3 (4.5-11.0) 08/30/18 09:33 RBC 2.58 M/mm3 (3.65-5.03) L 08/30/18 09:33 Hgb 7.9 gm/dl (10.1-14.3) L 08/30/18 09:33 Hct 23.5 % (30.3-42.9) L 08/30/18 09:33 MCV 91 fl (79-97) 08/30/18 09:33 MCH 30 pg (28-32) 08/30/18 09:33 MCHC 33 % (30-34) 08/30/18 09:33 RDW 20.9 % (13.2-15.2) H 08/30/18 09:33 Plt Count 315 K/mm3 (140-440) 08/30/18 09:33 Lymph % (Auto) 8.0 % (13.4-35.0) L 08/30/18 09:33 [place] % (Auto) 9.7 % (0.0-7.3) H 08/30/18 09:33 Eos % (Auto) 0.0 % (0.0-4.3) 08/30/18 09:33 Baso % (Auto) 0.2 % (0.0-1.8) 08/30/18 09:33 Lymph # 0.8 K/mm3 (1.2-5.4) L 08/30/18 09:33 [place] # 1.0 K/mm3 (0.0-0.8) H 08/30/18 09:33 Eos # 0.0 K/mm3 (0.0-0.4) 08/30/18 09:33 Baso # 0.0 K/mm3 (0.0-0.1) 08/30/18 09:33 Add Manual Diff Complete 08/24/18 08:30 Total Counted 100 08/24/18 08:30 Seg Neutrophils % 82.1 % (40.0-70.0) H 08/30/18 09:33 Seg Neuts % (Manual) 93.0 % (40.0-70.0) H 08/24/18 08:30 Band Neutrophils % 0 % 08/24/18 08:30 Lymphocytes % (Manual) 6.0 % (13.4-35.0) L 08/24/18 08:30 Reactive Lymphs % (Man) 0 % 08/24/18 08:30 Monocytes % (Manual) 1.0 % (0.0-7.3) 08/24/18 08:30 Eosinophils % (Manual) 0 % (0.0-4.3) 08/24/18 08:30 Basophils % (Manual) 0 % (0.0-1.8) 08/24/18 08:30 Metamyelocytes % 0 % 08/24/18 08:30 Myelocytes % 0 % 08/24/18 08:30 Promyelocytes % 0 % 08/24/18 08:30 Blast Cells % 0 % 08/24/18 08:30 Nucleated RBC % Not Reportable 08/24/18 08:30 Seg Neutrophils # 8.2 K/mm3 (1.8-7.7) H 08/30/18 09:33 Seg Neutrophils # Man 11.9 K/mm3 (1.8-7.7) H 08/24/18 08:30 Band Neutrophils # 0.0 K/mm3 08/24/18 08:30 Abs Lymphs (Manual) 3262 cells/uL (850-3900) 08/19/18 14:32 Lymphocytes # (Manual) 0.8 K/mm3 (1.2-5.4) L 08/24/18 08:30 Abs React Lymphs (Man) 0.0 K/mm3 08/24/18 08:30 Monocytes # (Manual) 0.1 K/mm3 (0.0-0.8) 08/24/18 08:30 Eosinophils # (Manual) 0.0 K/mm3 (0.0-0.4) 08/24/18 08:30 Basophils # (Manual) 0.0 K/mm3 (0.0-0.1) 08/24/18 08:30 Metamyelocytes # 0.0 K/mm3 08/24/18 08:30 Myelocytes # 0.0 K/mm3 08/24/18 08:30 Promyelocytes # 0.0 K/mm3 08/24/18 08:30 Blast Cells # 0.0 K/mm3 08/24/18 08:30 WBC Morphology Not Reportable 08/24/18 08:30 Hypersegmented Neuts Not Reportable 08/24/18 08:30 Hyposegmented Neuts Not Reportable 08/24/18 08:30 Hypogranular Neuts Not Reportable 08/24/18 08:30 Smudge Cells Not Reportable 08/24/18 08:30 Toxic Granulation Not Reportable 08/24/18 08:30 Toxic Vacuolation Not Reportable 08/24/18 08:30 Dohle Bodies Not Reportable 08/24/18 08:30 Pelger-Huet Anomaly Not Reportable 08/24/18 08:30 Rosy Rods Not Reportable 08/24/18 08:30 Platelet Estimate Consistent w auto 08/24/18 08:30 Clumped Platelets Not Reportable 08/24/18 08:30 Plt Clumps, EDTA Not Reportable 08/24/18 08:30 Large Platelets Not Reportable 08/24/18 08:30 Giant Platelets Not Reportable 08/24/18 08:30 Platelet Satelliting Not Reportable 08/24/18 08:30 Plt Morphology Comment Not Reportable 08/24/18 08:30 RBC Morphology Not Reportable 08/24/18 08:30 Dimorphic RBCs Not Reportable 08/24/18 08:30 Polychromasia Not Reportable 08/24/18 08:30 Hypochromasia Not Reportable 08/24/18 08:30 Poikilocytosis Not Reportable 08/24/18 08:30 Anisocytosis 1+ 08/24/18 08:30 Microcytosis Not Reportable 08/24/18 08:30 Macrocytosis Not Reportable 08/24/18 08:30 Spherocytes Not Reportable 08/24/18 08:30 Pappenheimer Bodies Not Reportable 08/24/18 08:30 Sickle Cells Not Reportable 08/24/18 08:30 Target Cells Not Reportable 08/24/18 08:30 Tear Drop Cells Not Reportable 08/24/18 08:30 Ovalocytes Not Reportable 08/24/18 08:30 Helmet Cells Not Reportable 08/24/18 08:30 [place] Bodies Not Reportable 08/24/18 08:30 [place] Rings Not Reportable 08/24/18 08:30 Bertha Cells Not Reportable 08/24/18 08:30 Bite Cells Not Reportable 08/24/18 08:30 Crenated Cell Not Reportable 08/24/18 08:30 Elliptocytes Not Reportable 08/24/18 08:30 Acanthocytes (Spur) Not Reportable 08/24/18 08:30 Rouleaux Not Reportable 08/24/18 08:30 Hemoglobin C Crystals Not Reportable 08/24/18 08:30 Schistocytes Not Reportable 08/24/18 08:30 Malaria parasites Not Reportable 08/24/18 08:30 Ceasar Bodies Not Reportable 08/24/18 08:30 Hem Pathologist Commnt No 08/24/18 08:30 D-Dimer 2768.33 ng/mlDDU (0-234) H 08/15/18 18:31 Heparin Anti-Xa, Unfract Negative (Negative) 08/22/18 15:29 POC ABG pH 7.417 (7.35-7.45) 08/28/18 22:31 POC ABG pCO2 34.4 (35-45) L 08/28/18 22:31 POC ABG pO2 67 (80-105) L 08/28/18 22:31 POC ABG HCO3 22.1 (22-26 mml/L) 08/28/18 22:31 POC ABG Total CO2 23 (23-27mmol/L) 08/28/18 22:31 POC ABG O2 Sat 94 08/28/18 22:31 POC ABG Base Excess -2 ((-2) - (+3)mmol/L) 08/28/18 22:31 VBG pH 7.187 (7.320-7.420) L* 08/15/18 18:19 FiO2 35 % 08/28/18 22:31 Sodium 151 mmol/L (137-145) H 08/31/18 08:40 Potassium 3.7 mmol/L (3.6-5.0) 08/31/18 08:40 Chloride 113.8 mmol/L (98-107) H 08/31/18 08:40 Carbon Dioxide 24 mmol/L (22-30) 08/31/18 08:40 Anion Gap 17 mmol/L 08/31/18 08:40 BUN 45 mg/dL (7-17) H 08/31/18 08:40 Creatinine 1.1 mg/dL (0.7-1.2) 08/31/18 08:40 Estimated GFR 49 ml/min 08/31/18 08:40 BUN/Creatinine Ratio 41 % 08/31/18 08:40 Glucose 144 mg/dL (65-100) H 08/31/18 08:40 POC Glucose 133 (70-105) H 08/31/18 05:16 Hemoglobin A1c 6.4 % (4-6) H 08/15/18 23:09 Lactic Acid 1.20 mmol/L (0.7-2.0) 08/22/18 15:29 Calcium 8.9 mg/dL (8.4-10.2) 08/31/18 08:40 Phosphorus 4.60 mg/dL (2.5-4.5) H 08/30/18 09:33 Magnesium 2.10 mg/dL (1.7-2.3) 08/30/18 09:33 Total Bilirubin 0.50 mg/dL (0.1-1.2) 08/30/18 09:33 AST 39 units/L (5-40) 08/30/18 09:33 ALT < 5 units/L (7-56) L 08/30/18 09:33 Alkaline Phosphatase 89 units/L (35-129) 08/30/18 09:33 Troponin T 0.317 ng/mL (0.00-0.029) H* D 08/18/18 13:39 C-Reactive Protein 5.00 mg/dL (0.00-1.30) H 08/25/18 05:20 Total Protein 6.7 g/dL (6.3-8.2) 08/30/18 09:33 Albumin 2.7 g/dL (3.9-5) L 08/30/18 09:33 Albumin/Globulin Ratio 0.7 % 08/30/18 09:33 Triglycerides 197 mg/dL (2-149) H 08/22/18 06:45 Cholesterol 87 mg/dL (50-199) 08/15/18 18:31 LDL Cholesterol Direct 4 mg/dL (50-130) L 08/15/18 18:31 HDL Cholesterol 10 mg/dL (40-59) L 08/15/18 18:31 Cholesterol/HDL Ratio 8.70 % 08/15/18 18:31 Total Cortisol 21.4 mcg/dL () 08/25/18 08:52 Urine Color [place] (Yellow) 08/15/18 19:15 Urine Turbidity Cloudy (Clear) 08/15/18 19:15 Urine pH 5.0 (5.0-7.0) 08/15/18 19:15 Ur Specific [place] 1.025 (1.003-1.030) 08/15/18 19:15 Urine Protein 30 mg/dl mg/dL (Negative) 08/15/18 19:15 Urine Glucose (UA) Neg mg/dL (Negative) 08/15/18 19:15 Urine Ketones Neg mg/dL (Negative) 08/15/18 19:15 Urine Blood Mod (Negative) 08/15/18 19:15 Urine Nitrite Neg (Negative) 08/15/18 19:15 Urine Bilirubin Neg (Negative) 08/15/18 19:15 Urine Urobilinogen 2.0 mg/dL (<2.0) 08/15/18 19:15 Ur Leukocyte Esterase Mod (Negative) 08/15/18 19:15 Urine WBC (Auto) 17.0 /HPF (0.0-6.0) H 08/15/18 19:15 Urine RBC (Auto) 5.0 /HPF (0.0-6.0) 08/15/18 19:15 Urine WBC Clumps 2+ /HPF 08/15/18 19:15 Amorphous Crystals 1+ 08/15/18 19:15 Hyaline Casts 54 /LPF 08/15/18 19:15 Granular Casts 14 /LPF 08/15/18 19:15 Urine Mucus Few /HPF 08/15/18 19:15 Salicylates < 0.3 mg/dL (2.8-20.0) L 08/15/18 19:14 Urine Opiates Screen Presumptive positive 08/15/18 19:15 Urine Methadone Screen Presumptive negative 08/15/18 19:15 Acetaminophen < 5.0 ug/mL (10.0-30.0) L 08/15/18 19:14 Ur Barbiturates Screen Presumptive negative 08/15/18 19:15 Ur Phencyclidine Scrn Presumptive negative 08/15/18 19:15 Ur Amphetamines Screen Presumptive negative 08/15/18 19:15 U Benzodiazepines Scrn Presumptive negative 08/15/18 19:15 Urine Cocaine Screen Presumptive negative 08/15/18 19:15 U Marijuana (THC) Screen Presumptive negative 08/15/18 19:15 Drugs of Abuse Note Disclamer 08/15/18 19:15 Heparin-induced Plt Ab Negative (Negative) 08/22/18 15:29 UF Heparin High Dose 0 % Release 08/22/18 15:29 NAZIA UFH Low Dose 0.1 0 % Release 08/22/18 15:29 NAZIA UFH Low Dose 0.5 0 % Release 08/22/18 15:29 Lymph Enumerat CD4/CD8 1.98 (0.86-5.00) 08/19/18 14:32 % CD3 Cells 44 % (57-85) L 08/19/18 14:32 Absolute CD3 Count 1451 cells/uL (840-3060) 08/19/18 14:32 % CD4 Cells 30 % (30-61) 08/19/18 14:32 Absolute CD4 Count 1004 cells/uL (490-1740) 08/19/18 14:32 % CD8 Cells 15 % (12-42) 08/19/18 14:32 Absolute CD8 Count 508 cells/uL (180-1170) 08/19/18 14:32 % CD19 Cells 41 % (6-29) H 08/19/18 14:32 Absolute CD19 Count 1290 cells/uL (110-660) H 08/19/18 14:32 C. difficile Toxin A&B Negative (Negative) 08/19/18 14:00 HIV 1&2 Antibody Rapid Non react (Non React) 08/18/18 13:39 HIV P24 Antigen Non react (Non React) 08/18/18 13:39 Blood Type O POSITIVE 08/25/18 08:52 Antibody Screen Negative 08/25/18 08:52 Crossmatch See Detail 08/25/18 08:52 Active Medications - Current Medications Current Medications: Generic Name Dose Route Start Last Admin Trade Name Freq PRN Reason Stop Dose Admin Acetaminophen 650 mg 08/15/18 22:12 08/24/18 21:30 Tylenol PO 650 mg Q4H PRN Administration Pain MILD(1-3)/Fever >100.5/[place]DR[place] Acetaminophen 650 mg 08/16/18 17:01 08/16/18 17:11 Tylenol [place] 650 mg Q4H PRN Administration Pain, Mild (1-3) Albuterol 2.5 mg 08/17/18 17:00 Proventil IH Q3HRT PRN Shortness Of Breath Albuterol/Ipratropium 1 ampul 08/20/18 14:00 08/31/18 07:26 Duoneb *Not For Prn Use* IH Not Given Q6HRT LAMAR Lipase/Protease/Amylase 1 each 08/17/18 15:55 Pancresam Elizabeth 10,500 Unit FEEDTUBE PRN PRN For Clogged Feeding Tube Arformoterol Tartrate 15 mcg 08/18/18 20:00 08/31/18 07:26 Brovana Nebu IH 15 mcg Q12HRT LAMAR Administration Budesonide 0.5 mg 08/18/18 20:00 08/31/18 07:26 Pulmicort IH 0.5 mg Q12HRT LAMAR Administration Carvedilol 3.125 mg 08/26/18 15:19 08/31/18 01:28 Coreg PO Not Given BID LAMAR Duloxetine HCl 60 mg 08/16/18 10:00 08/30/18 14:35 Cymbalta PO Not Given QDAY LAMAR Enoxaparin Sodium 40 mg 08/29/18 22:00 08/30/18 22:37 Lovenox SUB-Q 40 mg QDAY@2200 LAMAR Administration Famotidine 10 mg 08/30/18 23:00 08/30/18 22:40 Pepcid IV 10 mg BID LAMAR Administration Fentanyl 25 mcg 08/30/18 11:00 08/30/18 10:53 Duragesic TD 25 mcg Q3D LAMAR Administration Hydralazine HCl 10 mg 08/19/18 13:59 08/29/18 14:22 Apresoline IV 10 mg Q3H PRN Administration Hydralazine HCl 20 mg 08/29/18 18:00 08/31/18 06:10 Apresoline IV 20 mg Q4HR LAMAR Administration Hydrophilic Ointment 1 applic 08/15/18 21:55 Vaseline Lip Therapy TP Q2HR PRN Dry Lips Micafungin Sodium 100 mg/ 100 mls @ 100 mls/hr 08/26/18 11:00 08/30/18 09:30 Sodium Chloride IV 100 mls/hr QDAY LAMAR Administration Protocol Metoclopramide HCl 5 mg 08/15/18 22:50 Reglan IV Q6H PRN Nausea And Vomiting Morphine Sulfate 1 mg 08/29/18 15:29 08/31/18 06:10 Morphine IV 1 mg Q4H PRN Administration Pain, Moderate (4-6) Ondansetron HCl 4 mg 08/15/18 22:12 08/30/18 12:22 Zofran IV 4 mg Q8H PRN Administration Nausea And Vomiting Simple Syrup 15 ml 08/17/18 15:55 Simple Syrup FEEDTUBE PRN PRN Hypoglycemia Simple Syrup 30 ml 08/17/18 15:55 Simple Syrup FEEDTUBE PRN PRN Hypoglycemia Sodium Bicarbonate 325 mg 08/17/18 15:55 Sodium Bicarbonate FEEDTUBE PRN PRN For Clogged Feeding Tube Sodium Chloride 10 ml 08/16/18 10:00 08/30/18 22:40 Sodium Chloride Flush Syringe 10 Ml IV 10 ml BID LAMAR Administration Sodium Chloride 10 ml 08/15/18 22:12 08/25/18 21:35 Sodium Chloride Flush Syringe 10 Ml IV 10 ml PRN PRN Administration LINE FLUSH Nutrition/Malnutrition Assess - Dietary Evaluation Nutrition/Malnutrition Findings: Nutrition Notes Start: 08/17/18 13:57 Freq: Status: Active Protocol: Document 08/24/18 10:51 CP (Rec: 08/24/18 10:59 CP [id number]) Co-Sign 08/24/18 10:51 LP Nutrition Notes Initial or Follow up Reassessment Current Diagnosis Acute Kidney Injury,COPD, Diabetes,Sepsis,Hypertension, Respiratory Failure, Hyperlipidemia Other Pertinent Diagnosis AMS, hypokalemia, NSTEMI, encephalopathy, pneu, hypernatermia, shock liver Current Diet Vital AF 1.2 at 60mL/hr Labs/Tests BUN 64 Cr 2 BG 149 Pertinent Medications Reviewed Height 5 ft 7 in Weight 95.3 kg [place] Body Weight (kg) 61.36 BMI 32.9 Subjective/Other Information Per nurse, TF is stable and Na is WNL. #1 Nutrition Diagnosis Inadequate oral intake Diagnosis Progress(for reassessment Continues documentation) Is patient on ventilator? Yes Is Patient Ambulatory and/or Out of Bed No REE-([facility]-confined to bed) 1824.132 Kcal/Kg value to use for calculation 16 Approximate Energy Requirements Using 1525 kcal/Kg Calculation Used for Recommendations [facility] Additional Notes Protein needs: (2g/kg IBW) 122g/day Fluid needs: 1ml/kcal Nutrition Intervention Change Diet Order: Continue current Nutrition Support: Vital AF 1.2 at 60mL/hr with 150mL flush q4h. Kcal 1,728 Protein (gm) 108 Fluid (mL) 1,168 Goal #1 Tolerate TF Goal #2 Continue to meet at least 75% of nutrient needs via TF Anticipated Discharge Needs: Unable to determine at this time Follow-Up By: 08/31/18 Additional Comments F/U: TF tolerance
[2018-08-31] MEDS: PEPCID IV SCH (10:18)
[2018-08-31] MEDS: SODIUM CHLORIDE FLUSH SYRINGE 10 ML IV SCH ×2 (10:19→21:23)
[2018-08-31] MEDS: MORPHINE PO SCH ×3 (11:45→23:30)
[2018-08-31] MEDS: MYCAMINE 100 MG in NACL 0.9% 100 ML IV SCH (11:46)
[2018-08-31] MEDS: ZOFRAN IV PRN ×2 (11:52→17:52)
[2018-08-31] MEDS ORDERED: DIURIL IV ONE (12:00)
--- NOTE | 2018-08-31 14:23 | Progress Note ---
Assessment and Plan - Patient Problems (1) Acute respiratory failure Current Visit: Yes Status: Acute Plan to address problem: Continue supportive management. (2) Dilated cardiomyopathy Current Visit: Yes Status: Acute Plan to address problem: Medical therapy as tolerated for dilated cardiomyopathy. Subjective Date of service: 08/31/18 Principal diagnosis: Acute hypoxemic hypercapnic Resp failure; AE-COPD; Acute kidney injury Interval history: Patient is extubated, he has lethargic but breathing comfortably on room air. On telemetry she is sinus at 109, blood pressure 150 systolic. Objective Vital Signs Temp Pulse Pulse Pulse Resp Resp Resp 08/31/18 14:15 97 H 26 H 08/31/18 14:01 93 H 08/31/18 14:00 93 H 27 H 08/31/18 13:45 95 H 29 H 08/31/18 13:31 95 H 32 H 08/31/18 13:15 96 H 28 H 08/31/18 13:00 96 H 30 H 08/31/18 12:46 101 H 27 H 08/31/18 12:30 108 H 35 H 08/31/18 12:16 110 H 32 H 08/31/18 12:00 99.6 F 109 H 110 H 32 H 08/31/18 11:46 109 H 31 H 08/31/18 11:45 111 H 08/31/18 11:30 111 H 35 H 08/31/18 11:16 112 H 35 H 08/31/18 11:00 109 H 32 H 08/31/18 10:46 108 H 32 H 08/31/18 10:30 107 H 34 H 08/31/18 10:18 106 H 08/31/18 10:16 103 H 37 H 08/31/18 10:00 108 H 29 H 08/31/18 09:47 08/31/18 09:46 87 26 H 08/31/18 09:30 103 H 37 H 08/31/18 09:16 106 H 25 H 08/31/18 09:00 102 H 32 H 08/31/18 08:46 89 31 H 08/31/18 08:30 106 H 26 H 08/31/18 08:16 93 H 33 H 08/31/18 08:00 99.4 F 108 H 31 H 08/31/18 07:47 102 H 27 H 08/31/18 07:46 106 H 107 H 24 22 08/31/18 07:45 102 H 08/31/18 07:30 102 H 28 H 08/31/18 07:26 107 H 25 H 08/31/18 07:25 08/31/18 07:16 108 H 30 H 08/31/18 07:00 103 H 27 H 08/31/18 06:46 108 H 42 H 08/31/18 06:30 109 H 30 H 08/31/18 06:16 106 H 30 H 08/31/18 06:10 106 H 08/31/18 06:00 106 H 35 H 38 H 08/31/18 05:46 106 H 21 08/31/18 05:30 105 H 34 H 08/31/18 05:16 101 H 25 H 08/31/18 05:00 107 H 25 H 08/31/18 04:46 105 H 35 H 08/31/18 04:30 107 H 39 H 08/31/18 04:16 107 H 35 H 08/31/18 04:00 99.0 F 107 H 108 H 23 08/31/18 03:46 108 H 28 H 08/31/18 03:30 110 H 37 H 08/31/18 03:16 110 H 40 H 08/31/18 03:00 102 H 31 H 08/31/18 02:46 98 H 30 H 08/31/18 02:38 96 H 08/31/18 02:36 98 H 26 H 08/31/18 02:30 96 H 35 H 08/31/18 02:16 97 H 34 H 08/31/18 02:00 103 H 30 H 08/31/18 01:46 101 H 23 08/31/18 01:30 99 H 31 H 08/31/18 01:16 97 H 31 H 08/31/18 01:00 95 H 33 H 08/31/18 00:46 105 H 36 H 08/31/18 00:30 100 H 35 H 08/31/18 00:16 100 H 32 H 08/31/18 00:12 35 H 08/31/18 00:00 107 H 107 H 25 H 42 H 08/30/18 23:59 99.4 F 08/30/18 23:46 108 H 34 H 08/30/18 23:42 42 H 08/30/18 23:30 110 H 35 H 08/30/18 23:16 110 H 37 H 08/30/18 23:00 106 H 40 H 08/30/18 22:46 107 H 21 08/30/18 22:33 105 H 08/30/18 22:30 106 H 23 08/30/18 22:16 96 H 30 H 08/30/18 22:00 97 H 30 H 08/30/18 21:46 100 H 22 08/30/18 21:30 98 H 31 H 08/30/18 21:16 99 H 31 H 08/30/18 21:00 100 H 37 H 08/30/18 20:46 107 H 26 H 08/30/18 20:38 102 H 37 H 08/30/18 20:30 103 H 34 H 08/30/18 20:16 102 H 39 H 08/30/18 20:00 99.7 F H 100 H 105 H 31 H 21 08/30/18 19:46 105 H 29 H 08/30/18 19:30 97 H 37 H 08/30/18 19:22 97 H 27 H 08/30/18 19:18 100 H 08/30/18 19:16 97 H 24 08/30/18 19:10 08/30/18 19:00 97 H 14 08/30/18 18:46 99 H 17 08/30/18 18:30 100 H 28 H 08/30/18 18:15 99 H 35 H 08/30/18 18:00 94 H 40 H 08/30/18 17:46 96 H 26 H 08/30/18 17:30 104 H 31 H 08/30/18 17:16 105 H 16 08/30/18 17:00 105 H 28 H 08/30/18 16:46 106 H 22 08/30/18 16:30 107 H 22 08/30/18 16:16 95 H 33 H 08/30/18 16:00 98.0 F 106 H 107 H 23 08/30/18 15:49 104 H 08/30/18 15:46 104 H 50 H 08/30/18 15:30 104 H 16 08/30/18 15:16 105 H 30 H 08/30/18 15:00 105 H 17 08/30/18 14:46 102 H 26 H 08/30/18 14:30 101 H 32 H BP Pulse Ox 04/03/19 14:15 140/76 93 08/31/18 14:01 140/76 08/31/18 14:00 140/76 93 08/31/18 13:45 143/73 93 08/31/18 13:31 143/73 93 08/31/18 13:15 93 08/31/18 13:00 136/82 96 08/31/18 12:46 136/82 96 08/31/18 12:30 136/82 94 08/31/18 12:16 135/78 93 08/31/18 12:00 135/78 93 08/31/18 11:46 150/76 92 08/31/18 11:45 150/76 08/31/18 11:30 150/76 91 08/31/18 11:16 144/76 89 08/31/18 11:00 148/83 90 08/31/18 10:46 148/83 92 08/31/18 10:30 148/83 93 08/31/18 10:18 150/78 08/31/18 10:16 150/78 93 08/31/18 10:00 149/83 92 08/31/18 09:47 93 08/31/18 09:46 149/83 92 08/31/18 09:30 135/83 95 08/31/18 09:16 135/83 94 08/31/18 09:00 149/80 94 08/31/18 08:46 149/80 92 08/31/18 08:30 162/75 91 08/31/18 08:16 152/81 94 08/31/18 08:00 162/75 94 08/31/18 07:47 97 08/31/18 07:46 162/75 96 08/31/18 07:45 08/31/18 07:30 162/75 96 08/31/18 07:26 08/31/18 07:25 95 08/31/18 07:16 150/76 96 08/31/18 07:00 160/80 97 08/31/18 06:46 160/80 95 08/31/18 06:30 160/80 95 08/31/18 06:16 162/99 96 08/31/18 06:10 162/99 08/31/18 06:00 162/99 95 08/31/18 05:46 149/70 97 08/31/18 05:30 151/77 96 08/31/18 05:16 151/77 97 08/31/18 05:00 151/77 97 08/31/18 04:46 148/73 97 08/31/18 04:30 148/73 96 08/31/18 04:16 143/67 96 08/31/18 04:00 142/41 97 08/31/18 03:46 142/41 94 08/31/18 03:30 142/41 95 08/31/18 03:16 142/41 93 08/31/18 03:00 171/63 94 08/31/18 02:46 171/63 96 08/31/18 02:38 171/63 08/31/18 02:36 08/31/18 02:30 150/64 95 08/31/18 02:16 150/64 94 08/31/18 02:00 150/64 96 08/31/18 01:46 150/64 96 08/31/18 01:30 150/66 96 08/31/18 01:16 150/66 94 08/31/18 01:00 146/84 94 08/31/18 00:46 146/84 94 08/31/18 00:30 150/66 94 08/31/18 00:16 146/84 94 08/31/18 00:12 08/31/18 00:00 160/76 95 08/30/18 23:59 08/30/18 23:46 160/76 95 08/30/18 23:42 08/30/18 23:30 165/96 95 08/30/18 23:16 165/96 93 08/30/18 23:00 165/96 93 08/30/18 22:46 165/96 94 08/30/18 22:33 165/96 08/30/18 22:30 165/96 93 08/30/18 22:16 163/72 94 08/30/18 22:00 163/72 94 08/30/18 21:46 147/67 92 08/30/18 21:30 163/72 91 08/30/18 21:16 145/69 92 08/30/18 21:00 147/67 93 08/30/18 20:46 145/69 93 08/30/18 20:38 151/69 93 08/30/18 20:30 151/69 92 08/30/18 20:16 151/69 96 08/30/18 20:00 150/67 97 08/30/18 19:46 146/79 97 08/30/18 19:30 155/75 96 08/30/18 19:22 08/30/18 19:18 155/75 08/30/18 19:16 155/75 95 08/30/18 19:10 95 08/30/18 19:00 155/75 96 08/30/18 18:46 146/79 96 08/30/18 18:30 146/79 94 08/30/18 18:15 138/74 94 08/30/18 18:00 138/75 94 08/30/18 17:46 138/75 95 08/30/18 17:30 149/74 93 08/30/18 17:16 140/77 90 08/30/18 17:00 149/74 92 08/30/18 16:46 149/74 92 08/30/18 16:30 155/78 94 08/30/18 16:16 155/78 95 08/30/18 16:00 174/91 94 08/30/18 15:49 165/88 08/30/18 15:46 165/88 93 08/30/18 15:30 174/91 92 08/30/18 15:16 174/91 96 08/30/18 15:00 143/77 95 08/30/18 14:46 167/85 95 08/30/18 14:30 143/77 96 - Physical Examination General: No Apparent Distress HEENT: Positive: PERRL, Other (ET tube in place) Neck: Positive: neck supple, trachea midline Cardiac: Positive: Regular Rhythm Lungs: Positive: Decreased Breath Sounds Neuro: Positive: Weakness Abdomen: Positive: Soft, Active Bowel Sounds Skin: Positive: Clear Extremities: Absent: edema - Labs and Meds Comprehensive Metabolic Panel 08/31/18 Range/Units 08:40 Sodium 151 H (137-145) mmol/L Potassium 3.7 (3.6-5.0) mmol/L Chloride 113.8 H (98-107) mmol/L Carbon Dioxide 24 (22-30) mmol/L BUN 45 H (7-17) mg/dL Creatinine 1.1 (0.7-1.2) mg/dL Glucose 144 H (65-100) mg/dL Calcium 8.9 (8.4-10.2) mg/dL - Allied health notes Allied health notes reviewed: RT
--- NOTE | 2018-08-31 17:55 | Progress Note ---
Assessment and Plan Cultures: 08/15/2018 blood culture: Camryn glabrata 1 of 4 08/15/2018 sputum culture: MSSA and Escherichia coli, wade susceptible 08/18/2018 blood culture: no growth 08/18/2018 urine culture: neg 08/22/2018 blood culture: no growth 08/25/2018 blood culture: no growth A/P: 68-year-old female with COPD, arthritis, history of multiple spinal surgeries was brought to the emergency room on 08/15/2018 with altered mental status: 1) Sepsis with septic shock: resolved. 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 Patient without any history of indwelling PICC line, TPN or immunocompromised status. reported severe explosive diarrhea, N/V before admission after taken 4 days of amoxicillin for dental implant on 07/29/2018 and had a EGD / colonoscopy on 08/08/[address] [place] [address] Alcantara. I reviewed report - mild chronic gastritis, focal intestinal metaplasia, squamocolumnar mucosa with mild reflux-type changes, and tubular adenoma. -s/p fluconazole 800 mg loading dose then micafungin, s/p amphotericin D6 on 08/26 -serum Crypto negative. -08/15/2018 blood culture: Camryn glabrata -08/18/2018 blood culture: no growth today -CTA chest showed limited study due to respiratory motion artifact. No evidence of pulmonary embolism. Abnormal bilateral lung consolidation which may represent pulmonary edema or pneumonia. Mild cardiomegaly. Indeterminant mediastinal lymph nodes. -CT abdomen showed extensive bilateral lower lobe pulmonary infiltrates, rectal tube and Dodge catheter noted. NG tube at gastric antrum. Left hip prosthesis Extensive degenerative changes noted lumbar spine -TTE EF 25-30% no vegetations -HIV neg/ CD4 1004 -reviewed CT chest abd done 01/05/2019 showed cholecystectomy, mild fatty liver, postoperative changes of lumbar laminectomy with non specific fluid, 9 mm LLL pulmonary nodule which was compared to previous CT and was stable. -CRP 10-->5 3) Acute renal failure: On admission: Nephrology following. 4) Bilateral pneumonia: DDx aspiration pneumonia v/s CAP. Causing acute respiratory failure. Chest x-ray shows reticular nodular infiltrates, some of these appear to be chronic and would also present in 2011. CTA chest showed limited study due to respiratory motion artifact. No evidence of pulmonary embolism. Abnormal bilateral lung consolidation which may represent pulmonary edema or pneumonia. Mild cardiomegaly. Indeterminant mediastinal lymph nodes. -Sputum culture 08/15 MSSA and Escherichia coli, wade susceptible. completed abx. 5) Right maxillary sinusitis: received empiric abx. 6) Acute encephalopathy: Likely multifactorial. CT head unremarkable for acute intracranial process. Improving. 7) Cardiomyopathy, LVEF 25-30% this admission. 8) H/O left hip prosthesis ? XR no effusion. CT no enhancement Recs: continue micafungin IV ending 09/01/2018 to complete a total of 14 days of antifungals from negative blood culture MD [facility] C: [phone] O: [phone] F: [phone] Subjective Date of service: 08/31/18 Principal diagnosis: Acute hypoxemic hypercapnic Resp failure; AE-COPD; Acute kidney injury Interval history: More awake. No fever. Following basic commands. O2 requirements coming down. Objective - Exam Narrative Exam: Physical Exam: Constitutional: awake, alert, on high flow oxygen. Head, Ears, Nose: Normocephalic, atraumatic. External ears, nose normal Eyes: Conjunctivae/corneas clear. No icterus. No ptosis. Neck: Supple, no meningeal signs Oral: no thrush, no ulcers Cardiovascular: S1, S2 normal. Respiratory: Good air entry, clear to auscultation bilaterally GI: Soft, non-tender; bowel sounds normal. No peritoneal signs Musculoskeletal: No pedal edema, no cyanosis. Skin: No rash or abscess Hem/Lymphatic: No palpable cervical or supraclavicular nodes. No lymphangitis Psych: no agitation Neurological: awake, alert, following basic commands - Constitutional Vitals: Vital Signs Temp Pulse Resp BP Pulse Ox 99.8 F H 96 H 26 H 163/79 91 08/31/18 15:53 08/31/18 17:46 08/31/18 17:15 08/31/18 17:46 08/31/18 17:15 Temperature -Last 24 Hours Temperature 99.8 F Temperature 99.6 F Temperature 99.4 F Temperature 99.0 F Temperature 99.4 F Temperature 99.7 F - Labs CBC & Chem 7: 08/30/18 09:33 08/31/18 08:40 Labs: Abnormal lab results 08/30/18 08/30/18 08/31/18 Range/Units 18:08 23:14 05:16 Sodium (137-145) mmol/L Chloride (98-107) mmol/L BUN (7-17) mg/dL Glucose (65-100) mg/dL POC Glucose 156 H 117 H 133 H (70-105) 08/31/18 Range/Units 08:40 Sodium 151 H (137-145) mmol/L Chloride 113.8 H (98-107) mmol/L BUN 45 H (7-17) mg/dL Glucose 144 H (65-100) mg/dL POC Glucose (70-105)
[2018-08-31] MEDS: LOVENOX SUB-Q SCH (21:22)
[2018-09-01] MEDS: DUONEB *Not for PRN Use IH SCH ×4 (02:00→20:07)
[2018-09-01] MEDS: APRESOLINE IV SCH ×2 (02:42→06:17)
[2018-09-01 05:38] LABS: Hematocrit 22.1 % (30.3-42.9); Hemoglobin 7.3 gm/dl (10.1-14.3); Mean Corpuscular HGB Conc 33 % (30-34); Mean Corpuscular Volume 93 fl (79-97); Platelet Count 333 K/mm3 (140-440); Red Blood Count 2.38 M/mm3 (3.65-5.03)
[2018-09-01 05:42] LABS: Red Cell Distribution Width 21.1 % (13.2-15.2)
[2018-09-01 06:11] LABS: BUN/Creatinine Ratio 43; Blood Urea Nitrogen 34 mg/dL (7-17); Calcium 8.7 mg/dL (8.4-10.2); Hemolysis Index 1
[2018-09-01] MEDS: MORPHINE PO SCH ×2 (06:18→20:28)
[2018-09-01] MEDS: PULMICORT IH SCH ×2 (08:08→20:07)
[2018-09-01] MEDS: BROVANA NEBU IH SCH ×2 (08:08→20:07)
[2018-09-01] MEDS ORDERED: K-DUR PO ONE (08:41)
--- NOTE | 2018-09-01 08:46 | Progress Note ---
Assessment and Plan Assessment and plan: --Hypernatremia; free water by mouth Nephrology following --Hypokalemia; replace with KCl, follow electrolytes --Acute hypoxic hypercapnic respiratory failure; extubated on high flow o2/BiPAP as needed, titrate O2 sats to more than 90% --Anemia;s/p PRBC transfusion hemoglobin today 7.3 monitor,transfuse as needed --Sepsis; secondary to aspiration pneumonia, --Aspiration pneumonia; Continue micafungin, ID following --Hypertension; continue current antihypertensives --Severe malnutrition/hypoalbuminemia; Nutrition consults and supportive care --Acute kidney injury; probably secondary to ATN avoid nephrotoxins, Nephrology following ----Acute systolic congestive heart failure; Ejection fraction 25-30%, continue current management Cardiology following --Elevated Transaminases; resolved --DVT prophylaxis; Lovenox Consults and recommendations noted and appreciated Plan of care reviewed with the patient's nurse The high probability of a clinically significant, sudden or life threatening deterioration of the [respiratory, cardiology, ID, renal and metabolic] system(s) required my full and direct attention, intervention and personal management. The aggregate critical care time was [32] minutes. This time is in addition to time spent performing reported procedures but includes the following: [x] Data Review and interpretation [x] Patient assessment and monitoring of vital signs [x] Documentation [x] Medication orders and management History Interval history: Patient seen and examined medical records reviewed No new events reported by nursing staff Patient is tolerating pured diet Alert awake confused Vital signs noted Hospitalist Physical - Constitutional Vitals: Temp Pulse Resp BP Pulse Ox 99.4 F 106 H 22 163/75 92 09/01/18 08:00 09/01/18 08:37 09/01/18 08:37 09/01/18 08:15 09/01/18 08:37 General appearance: Present: no acute distress, well-nourished, other (on BiPAP) - EENT Eyes: Present: PERRL, EOM intact - Neck Neck: Present: supple, normal ROM - Respiratory Respiratory effort: normal Respiratory: bilateral: diminished, negative: rales, rhonchi, wheezing - Cardiovascular Rhythm: regular Heart Sounds: Present: S1 & S2 - Extremities Extremities: no ischemia, No edema - Abdominal General gastrointestinal: soft, non-tender, non-distended, normal bowel sounds - Integumentary Integumentary: Present: clear, warm - Psychiatric Psychiatric: appropriate mood/affect, cooperative - Neurologic Neurologic: CNII-XII intact, moves all extremities Results - Labs CBC & Chem 7: 09/01/18 04:45 09/01/18 04:45 Labs: Laboratory Last Values WBC 10.9 K/mm3 (4.5-11.0) 09/01/18 04:45 RBC 2.38 M/mm3 (3.65-5.03) L 09/01/18 04:45 Hgb 7.3 gm/dl (10.1-14.3) L 09/01/18 04:45 Hct 22.1 % (30.3-42.9) L 09/01/18 04:45 MCV 93 fl (79-97) 09/01/18 04:45 MCH 31 pg (28-32) 09/01/18 04:45 MCHC 33 % (30-34) 09/01/18 04:45 RDW 21.1 % (13.2-15.2) H 09/01/18 04:45 Plt Count 333 K/mm3 (140-440) 09/01/18 04:45 Lymph % (Auto) 8.0 % (13.4-35.0) L 08/30/18 09:33 Bureau % (Auto) 9.7 % (0.0-7.3) H 08/30/18 09:33 Eos % (Auto) 0.0 % (0.0-4.3) 08/30/18 09:33 Baso % (Auto) 0.2 % (0.0-1.8) 08/30/18 09:33 Lymph # 0.8 K/mm3 (1.2-5.4) L 08/30/18 09:33 Bureau # 1.0 K/mm3 (0.0-0.8) H 08/30/18 09:33 Eos # 0.0 K/mm3 (0.0-0.4) 08/30/18 09:33 Baso # 0.0 K/mm3 (0.0-0.1) 08/30/18 09:33 Add Manual Diff Complete 08/24/18 08:30 Total Counted 100 08/24/18 08:30 Seg Neutrophils % 82.1 % (40.0-70.0) H 08/30/18 09:33 Seg Neuts % (Manual) 93.0 % (40.0-70.0) H 08/24/18 08:30 Band Neutrophils % 0 % 08/24/18 08:30 Lymphocytes % (Manual) 6.0 % (13.4-35.0) L 08/24/18 08:30 Reactive Lymphs % (Man) 0 % 08/24/18 08:30 Monocytes % (Manual) 1.0 % (0.0-7.3) 08/24/18 08:30 Eosinophils % (Manual) 0 % (0.0-4.3) 08/24/18 08:30 Basophils % (Manual) 0 % (0.0-1.8) 08/24/18 08:30 Metamyelocytes % 0 % 08/24/18 08:30 Myelocytes % 0 % 08/24/18 08:30 Promyelocytes % 0 % 08/24/18 08:30 Blast Cells % 0 % 08/24/18 08:30 Nucleated RBC % Not Reportable 08/24/18 08:30 Seg Neutrophils # 8.2 K/mm3 (1.8-7.7) H 08/30/18 09:33 Seg Neutrophils # Man 11.9 K/mm3 (1.8-7.7) H 08/24/18 08:30 Band Neutrophils # 0.0 K/mm3 08/24/18 08:30 Abs Lymphs (Manual) 3262 cells/uL (850-3900) 08/19/18 14:32 Lymphocytes # (Manual) 0.8 K/mm3 (1.2-5.4) L 08/24/18 08:30 Abs React Lymphs (Man) 0.0 K/mm3 08/24/18 08:30 Monocytes # (Manual) 0.1 K/mm3 (0.0-0.8) 08/24/18 08:30 Eosinophils # (Manual) 0.0 K/mm3 (0.0-0.4) 08/24/18 08:30 Basophils # (Manual) 0.0 K/mm3 (0.0-0.1) 08/24/18 08:30 Metamyelocytes # 0.0 K/mm3 08/24/18 08:30 Myelocytes # 0.0 K/mm3 08/24/18 08:30 Promyelocytes # 0.0 K/mm3 08/24/18 08:30 Blast Cells # 0.0 K/mm3 08/24/18 08:30 WBC Morphology Not Reportable 08/24/18 08:30 Hypersegmented Neuts Not Reportable 08/24/18 08:30 Hyposegmented Neuts Not Reportable 08/24/18 08:30 Hypogranular Neuts Not Reportable 08/24/18 08:30 Smudge Cells Not Reportable 08/24/18 08:30 Toxic Granulation Not Reportable 08/24/18 08:30 Toxic Vacuolation Not Reportable 08/24/18 08:30 Dohle Bodies Not Reportable 08/24/18 08:30 Pelger-Huet Anomaly Not Reportable 08/24/18 08:30 Rosy Rods Not Reportable 08/24/18 08:30 Platelet Estimate Consistent w auto 08/24/18 08:30 Clumped Platelets Not Reportable 08/24/18 08:30 Plt Clumps, EDTA Not Reportable 08/24/18 08:30 Large Platelets Not Reportable 08/24/18 08:30 Giant Platelets Not Reportable 08/24/18 08:30 Platelet Satelliting Not Reportable 08/24/18 08:30 Plt Morphology Comment Not Reportable 08/24/18 08:30 RBC Morphology Not Reportable 08/24/18 08:30 Dimorphic RBCs Not Reportable 08/24/18 08:30 Polychromasia Not Reportable 08/24/18 08:30 Hypochromasia Not Reportable 08/24/18 08:30 Poikilocytosis Not Reportable 08/24/18 08:30 Anisocytosis 1+ 08/24/18 08:30 Microcytosis Not Reportable 08/24/18 08:30 Macrocytosis Not Reportable 08/24/18 08:30 Spherocytes Not Reportable 08/24/18 08:30 Pappenheimer Bodies Not Reportable 08/24/18 08:30 Sickle Cells Not Reportable 08/24/18 08:30 Target Cells Not Reportable 08/24/18 08:30 Tear Drop Cells Not Reportable 08/24/18 08:30 Ovalocytes Not Reportable 08/24/18 08:30 Helmet Cells Not Reportable 08/24/18 08:30 [place] Bodies Not Reportable 08/24/18 08:30 [place] Rings Not Reportable 08/24/18 08:30 [place] Cells Not Reportable 08/24/18 08:30 Bite Cells Not Reportable 08/24/18 08:30 Crenated Cell Not Reportable 08/24/18 08:30 Elliptocytes Not Reportable 08/24/18 08:30 Acanthocytes (Spur) Not Reportable 08/24/18 08:30 Rouleaux Not Reportable 08/24/18 08:30 Hemoglobin C Crystals Not Reportable 08/24/18 08:30 Schistocytes Not Reportable 08/24/18 08:30 Malaria parasites Not Reportable 08/24/18 08:30 Ceasar Bodies Not Reportable 08/24/18 08:30 Hem Pathologist Commnt No 08/24/18 08:30 D-Dimer 2768.33 ng/mlDDU (0-234) H 08/15/18 18:31 Heparin Anti-Xa, Unfract Negative (Negative) 08/22/18 15:29 POC ABG pH 7.417 (7.35-7.45) 08/28/18 22:31 POC ABG pCO2 34.4 (35-45) L 08/28/18 22:31 POC ABG pO2 67 (80-105) L 08/28/18 22:31 POC ABG HCO3 22.1 (22-26 mml/L) 08/28/18 22:31 POC ABG Total CO2 23 (23-27mmol/L) 08/28/18 22:31 POC ABG O2 Sat 94 08/28/18 22:31 POC ABG Base Excess -2 ((-2) - (+3)mmol/L) 08/28/18 22:31 VBG pH 7.187 (7.320-7.420) L* 08/15/18 18:19 FiO2 35 % 08/28/18 22:31 Sodium 156 mmol/L (137-145) H 09/01/18 04:45 Potassium 3.1 mmol/L (3.6-5.0) L 09/01/18 04:45 Chloride 115.2 mmol/L (98-107) H 09/01/18 04:45 Carbon Dioxide 27 mmol/L (22-30) 09/01/18 04:45 Anion Gap 17 mmol/L 09/01/18 04:45 BUN 34 mg/dL (7-17) H 09/01/18 04:45 Creatinine 0.8 mg/dL (0.7-1.2) 09/01/18 04:45 Estimated GFR > 60 ml/min 09/01/18 04:45 BUN/Creatinine Ratio 43 % 09/01/18 04:45 Glucose 125 mg/dL (65-100) H 09/01/18 04:45 POC Glucose 128 (70-105) H 09/01/18 05:34 Hemoglobin A1c 6.4 % (4-6) H 08/15/18 23:09 Lactic Acid 1.20 mmol/L (0.7-2.0) 08/22/18 15:29 Calcium 8.7 mg/dL (8.4-10.2) 09/01/18 04:45 Phosphorus 4.60 mg/dL (2.5-4.5) H 08/30/18 09:33 Magnesium 1.70 mg/dL (1.7-2.3) 09/01/18 04:45 Total Bilirubin 0.50 mg/dL (0.1-1.2) 08/30/18 09:33 AST 39 units/L (5-40) 08/30/18 09:33 ALT < 5 units/L (7-56) L 08/30/18 09:33 Alkaline Phosphatase 89 units/L (35-129) 08/30/18 09:33 Troponin T 0.317 ng/mL (0.00-0.029) H* D 08/18/18 13:39 C-Reactive Protein 5.00 mg/dL (0.00-1.30) H 08/25/18 05:20 Total Protein 6.7 g/dL (6.3-8.2) 08/30/18 09:33 Albumin 2.7 g/dL (3.9-5) L 08/30/18 09:33 Albumin/Globulin Ratio 0.7 % 08/30/18 09:33 Triglycerides 197 mg/dL (2-149) H 08/22/18 06:45 Cholesterol 87 mg/dL (50-199) 08/15/18 18:31 LDL Cholesterol Direct 4 mg/dL (50-130) L 08/15/18 18:31 HDL Cholesterol 10 mg/dL (40-59) L 08/15/18 18:31 Cholesterol/HDL Ratio 8.70 % 08/15/18 18:31 Serotonin Release Assay See scanned results 08/22/18 15:29 Total Cortisol 21.4 mcg/dL () 08/25/18 08:52 Urine Color Rosemarie (Yellow) 08/15/18 19:15 Urine Turbidity Cloudy (Clear) 08/15/18 19:15 Urine pH 5.0 (5.0-7.0) 08/15/18 19:15 Ur Specific [place] 1.025 (1.003-1.030) 08/15/18 19:15 Urine Protein 30 mg/dl mg/dL (Negative) 08/15/18 19:15 Urine Glucose (UA) Neg mg/dL (Negative) 08/15/18 19:15 Urine Ketones Neg mg/dL (Negative) 08/15/18 19:15 Urine Blood Mod (Negative) 08/15/18 19:15 Urine Nitrite Neg (Negative) 08/15/18 19:15 Urine Bilirubin Neg (Negative) 08/15/18 19:15 Urine Urobilinogen 2.0 mg/dL (<2.0) 08/15/18 19:15 Ur Leukocyte Esterase Mod (Negative) 08/15/18 19:15 Urine WBC (Auto) 17.0 /HPF (0.0-6.0) H 08/15/18 19:15 Urine RBC (Auto) 5.0 /HPF (0.0-6.0) 08/15/18 19:15 Urine WBC Clumps 2+ /HPF 08/15/18 19:15 Amorphous Crystals 1+ 08/15/18 19:15 Hyaline Casts 54 /LPF 08/15/18 19:15 Granular Casts 14 /LPF 08/15/18 19:15 Urine Mucus Few /HPF 08/15/18 19:15 Salicylates < 0.3 mg/dL (2.8-20.0) L 08/15/18 19:14 Urine Opiates Screen Presumptive positive 08/15/18 19:15 Urine Methadone Screen Presumptive negative 08/15/18 19:15 Acetaminophen < 5.0 ug/mL (10.0-30.0) L 08/15/18 19:14 Ur Barbiturates Screen Presumptive negative 08/15/18 19:15 Ur Phencyclidine Scrn Presumptive negative 08/15/18 19:15 Ur Amphetamines Screen Presumptive negative 08/15/18 19:15 U Benzodiazepines Scrn Presumptive negative 08/15/18 19:15 Urine Cocaine Screen Presumptive negative 08/15/18 19:15 U Marijuana (THC) Screen Presumptive negative 08/15/18 19:15 Drugs of Abuse Note Disclamer 08/15/18 19:15 Heparin-induced Plt Ab Negative (Negative) 08/22/18 15:29 UF Heparin High Dose 0 % Release 08/22/18 15:29 NAZIA UFH Low Dose 0.1 0 % Release 08/22/18 15:29 NAZIA UFH Low Dose 0.5 0 % Release 08/22/18 15:29 Lymph Enumerat CD4/CD8 1.98 (0.86-5.00) 08/19/18 14:32 % CD3 Cells 44 % (57-85) L 08/19/18 14:32 Absolute CD3 Count 1451 cells/uL (840-3060) 08/19/18 14:32 % CD4 Cells 30 % (30-61) 08/19/18 14:32 Absolute CD4 Count 1004 cells/uL (490-1740) 08/19/18 14:32 % CD8 Cells 15 % (12-42) 08/19/18 14:32 Absolute CD8 Count 508 cells/uL (180-1170) 08/19/18 14:32 % CD19 Cells 41 % (6-29) H 08/19/18 14:32 Absolute CD19 Count 1290 cells/uL (110-660) H 08/19/18 14:32 C. difficile Toxin A&B Negative (Negative) 08/19/18 14:00 HIV 1&2 Antibody Rapid Non react (Non React) 08/18/18 13:39 HIV P24 Antigen Non react (Non React) 08/18/18 13:39 Blood Type O POSITIVE 08/25/18 08:52 Antibody Screen Negative 08/25/18 08:52 Crossmatch See Detail 08/25/18 08:52 Active Medications - Current Medications Current Medications: Generic Name Dose Route Start Last Admin Trade Name Freq PRN Reason Stop Dose Admin Acetaminophen 650 mg 08/15/18 22:12 08/24/18 21:30 Tylenol PO 650 mg Q4H PRN Administration Pain MILD(1-3)/Fever >100.5/MONDRAGON Albuterol 2.5 mg 08/17/18 17:00 Proventil IH Q3HRT PRN Shortness Of Breath Albuterol/Ipratropium 1 ampul 08/20/18 14:00 09/01/18 08:08 Duoneb *Not For Prn Use* IH 1 ampul Q6HRT LAMAR Administration Lipase/Protease/Amylase 1 each 08/17/18 15:55 Pancreazrashad Elziabeth 10,500 Unit FEEDTUBE PRN PRN For Clogged Feeding Tube Arformoterol Tartrate 15 mcg 08/18/18 20:00 09/01/18 08:08 Brovana Nebu IH 15 mcg Q12HRT LAMAR Administration Budesonide 0.5 mg 08/18/18 20:00 09/01/18 08:08 Pulmicort IH 0.5 mg Q12HRT LAMAR Administration Carvedilol 3.125 mg 08/26/18 15:19 08/31/18 21:22 Coreg PO 3.125 mg BID LAMAR Administration Duloxetine HCl 60 mg 08/16/18 10:00 08/30/18 14:35 Cymbalta PO Not Given QDAY LAMAR Enoxaparin Sodium 40 mg 08/29/18 22:00 08/31/18 21:22 Lovenox SUB-Q 40 mg QDAY@2200 LAMAR Administration Famotidine 10 mg 08/31/18 22:00 08/31/18 21:22 Pepcid PO 10 mg BID LAMAR Administration Hydralazine HCl 10 mg 08/19/18 13:59 08/29/18 14:22 Apresoline IV 10 mg Q3H PRN Administration Hydralazine HCl 20 mg 08/29/18 18:00 09/01/18 06:17 Apresoline IV 20 mg Q4HR LAMAR Administration Hydrophilic Ointment 1 applic 08/15/18 21:55 Vaseline Lip Therapy TP Q2HR PRN Dry Lips Micafungin Sodium 100 mg/ 100 mls @ 100 mls/hr 08/26/18 11:00 08/31/18 11:46 Sodium Chloride IV 09/01/18 23:59 100 mls/hr QDAY LAMAR Administration Protocol Magnesium Sulfate 3 gm/ Sodium 106 mls @ 35.333 mls/hr 09/01/18 09:00 Chloride IV 09/01/18 11:59 ONCE ONE Metoclopramide HCl 5 mg 08/15/18 22:50 Reglan IV Q6H PRN Nausea And Vomiting Morphine Sulfate 1 mg 08/29/18 15:29 08/31/18 21:32 Morphine IV 1 mg Q4H PRN Administration Pain, Moderate (4-6) Morphine Sulfate 30 mg 08/31/18 12:00 09/01/18 06:18 Morphine PO 30 mg Q6HR LAMAR Administration Ondansetron HCl 4 mg 08/15/18 22:12 08/31/18 17:52 Zofran IV 4 mg Q8H PRN Administration Nausea And Vomiting Potassium Chloride 40 meq 09/01/18 09:00 Potassium Chloride FEEDTUBE 09/01/18 13:01 Q4H LAMAR Potassium Chloride 40 meq 09/01/18 08:41 K-Dur PO 09/01/18 08:42 ONCE ONE Simple Syrup 15 ml 08/17/18 15:55 Simple Syrup FEEDTUBE PRN PRN Hypoglycemia Simple Syrup 30 ml 08/17/18 15:55 Simple Syrup FEEDTUBE PRN PRN Hypoglycemia Sodium Bicarbonate 325 mg 08/17/18 15:55 Sodium Bicarbonate FEEDTUBE PRN PRN For Clogged Feeding Tube Sodium Chloride 10 ml 08/16/18 10:00 08/31/18 21:23 Sodium Chloride Flush Syringe 10 Ml IV 10 ml BID LAMAR Administration Sodium Chloride 10 ml 08/15/18 22:12 08/25/18 21:35 Sodium Chloride Flush Syringe 10 Ml IV 10 ml PRN PRN Administration LINE FLUSH Nutrition/Malnutrition Assess - Dietary Evaluation Nutrition/Malnutrition Findings: Nutrition Notes Start: 08/17/18 13:57 Freq: Status: Active Protocol: Document 08/31/18 12:04 OL (Rec: 08/31/18 12:12 OL [id number]) Nutrition Notes Initial or Follow up Reassessment Current Diagnosis Acute Kidney Injury,COPD, Diabetes,Sepsis,Hypertension, Respiratory Failure, Hyperlipidemia Other Pertinent Diagnosis AMS, hypokalemia, NSTEMI, encephalopathy, pneu, hypernatermia, shock liver Current Diet Vital AF 1.2 at 60mL/hr Labs/Tests Na 151 BUn 45 Pertinent Medications Reviewed Height 5 ft 7 in Weight 95.3 kg [place] Body Weight (kg) 61.36 BMI 32.9 Subjective/Other Information TF not infusing at this time. Pt. extubated. Awaiting SENIOR MECHANICAL PROJECT MANAGER evalation. #1 Nutrition Diagnosis Inadequate oral intake Diagnosis Progress(for reassessment Continues documentation) Is patient on ventilator? No Is Patient Ambulatory and/or Out of Bed No REE-(Wallace-St. Jeor-confined to bed) 1824.132 Kcal/Kg value to use for calculation 14 Approximate Energy Requirements Using 1334 kcal/Kg Calculation Used for Recommendations Kcal/kg Additional Notes Protein needs: (2g/kg IBW) 122g/day Fluid needs: 1ml/kcal Nutrition Intervention Change Diet Order: Diet advancment when medically feasible Goal #1 Diet advancement when medically feasible Anticipated Discharge Needs: Unable to determine at this time Follow-Up By: 09/02/18 Additional Comments f/u: SENIOR MECHANICAL PROJECT MANAGER recs, diet advancement
[2018-09-01] MEDS ORDERED: MAGNESIUM SULFATE 3 GM in NACL 0.9% 100 ML IV ONE (09:00)
[2018-09-01] MEDS ORDERED: D5W 1,000 ML IV SCH (09:00)
--- NOTE | 2018-09-01 09:05 | Progress Note ---
Assessment and Plan 1. Acute kidney injury: Vasomotor CHANDANA, likely ATN. Creatinine level is better. Monitor renal function. Avoid nephrotoxic agents. Meds dosage based on GFR. 2. FEN: Hypernatremia, Diuril and IV D5W. Metabolic acidosis, improved. 3. Bladder retention: S/p manrique catheter. 4. Acute encephalopathy. 5. Respiratory failure: S/p extubated. 6. Sepsis: Followed by ID. 7. Dilated cardiomyopathy with systolic LV dysfunction. 8. Anemia: S/p PRBC. 9. DVT. Subjective Date of service: 09/01/18 Principal diagnosis: Acute hypoxemic hypercapnic Resp failure; AE-COPD; Acute kidney injury Interval history: Patient was seen and examined at the bedside. Objective - Vital Signs Vital signs: Vital Signs - 12hr 08/31/18 08/31/18 08/31/18 21:11 21:15 21:22 Temperature Pulse Rate 99 H 99 H 99 H Pulse Rate [ Anterior Bilateral Throughout] Pulse Rate [ Apical] Respiratory 22 22 Rate Respiratory Rate [Anterior Bilateral Throughout] Respiratory Rate [Left Lower Abdomen] Blood Pressure 148/66 148/66 153/72 O2 Sat by Pulse 91 91 Oximetry 08/31/18 08/31/18 08/31/18 21:23 21:31 21:45 Temperature Pulse Rate 99 H 97 H 100 H Pulse Rate [ Anterior Bilateral Throughout] Pulse Rate [ Apical] Respiratory 17 18 Rate Respiratory Rate [Anterior Bilateral Throughout] Respiratory Rate [Left Lower Abdomen] Blood Pressure 153/72 140/68 140/68 O2 Sat by Pulse 91 90 Oximetry 08/31/18 08/31/18 08/31/18 22:00 22:02 22:15 Temperature Pulse Rate 94 H 94 H Pulse Rate [ Anterior Bilateral Throughout] Pulse Rate [ Apical] Respiratory 26 H 18 19 Rate Respiratory Rate [Anterior Bilateral Throughout] Respiratory Rate [Left Lower Abdomen] Blood Pressure 132/66 140/68 O2 Sat by Pulse 91 90 Oximetry 08/31/18 08/31/18 08/31/18 22:30 22:45 23:00 Temperature Pulse Rate 91 H 91 H 92 H Pulse Rate [ Anterior Bilateral Throughout] Pulse Rate [ Apical] Respiratory 23 26 H 20 Rate Respiratory Rate [Anterior Bilateral Throughout] Respiratory Rate [Left Lower Abdomen] Blood Pressure 140/61 140/61 140/68 O2 Sat by Pulse 90 90 92 Oximetry 08/31/18 08/31/18 08/31/18 23:15 23:30 23:45 Temperature Pulse Rate 94 H 92 H 94 H Pulse Rate [ Anterior Bilateral Throughout] Pulse Rate [ Apical] Respiratory 21 15 15 Rate Respiratory Rate [Anterior Bilateral Throughout] Respiratory Rate [Left Lower Abdomen] Blood Pressure 140/68 150/67 150/67 O2 Sat by Pulse 92 90 89 Oximetry 09/01/18 09/01/18 09/01/18 00:00 00:15 00:30 Temperature 98.3 F Pulse Rate 95 H 92 H 98 H Pulse Rate [ Anterior Bilateral Throughout] Pulse Rate [ 95 H Apical] Respiratory 20 28 H 20 Rate Respiratory Rate [Anterior Bilateral Throughout] Respiratory 18 Rate [Left Lower Abdomen] Blood Pressure 142/75 150/67 134/74 O2 Sat by Pulse 89 85 95 Oximetry 09/01/18 09/01/18 09/01/18 00:45 01:00 01:15 Temperature Pulse Rate 96 H 102 H 96 H Pulse Rate [ Anterior Bilateral Throughout] Pulse Rate [ Apical] Respiratory 27 H 22 25 H Rate Respiratory Rate [Anterior Bilateral Throughout] Respiratory Rate [Left Lower Abdomen] Blood Pressure 134/74 153/74 134/74 O2 Sat by Pulse 94 94 94 Oximetry 09/01/18 09/01/18 09/01/18 01:31 01:45 01:54 Temperature Pulse Rate 96 H 96 H 97 H Pulse Rate [ Anterior Bilateral Throughout] Pulse Rate [ Apical] Respiratory 20 18 22 Rate Respiratory Rate [Anterior Bilateral Throughout] Respiratory Rate [Left Lower Abdomen] Blood Pressure 150/70 153/74 150/70 O2 Sat by Pulse 94 95 93 Oximetry 09/01/18 09/01/18 09/01/18 02:00 02:15 02:31 Temperature Pulse Rate 97 H 97 H 92 H Pulse Rate [ 99 H Anterior Bilateral Throughout] Pulse Rate [ Apical] Respiratory 21 24 30 H Rate Respiratory 21 Rate [Anterior Bilateral Throughout] Respiratory Rate [Left Lower Abdomen] Blood Pressure 150/70 150/70 146/67 O2 Sat by Pulse 89 89 88 Oximetry 09/01/18 09/01/18 09/01/18 02:42 02:45 03:00 Temperature Pulse Rate 95 H 93 H 99 H Pulse Rate [ Anterior Bilateral Throughout] Pulse Rate [ Apical] Respiratory 26 H 21 Rate Respiratory Rate [Anterior Bilateral Throughout] Respiratory Rate [Left Lower Abdomen] Blood Pressure 146/67 145/75 140/66 O2 Sat by Pulse 89 89 Oximetry 09/01/18 09/01/18 09/01/18 03:15 03:31 03:45 Temperature Pulse Rate 98 H 95 H 98 H Pulse Rate [ Anterior Bilateral Throughout] Pulse Rate [ Apical] Respiratory 22 22 17 Rate Respiratory Rate [Anterior Bilateral Throughout] Respiratory Rate [Left Lower Abdomen] Blood Pressure 146/67 138/71 138/71 O2 Sat by Pulse 93 96 94 Oximetry 09/01/18 09/01/18 09/01/18 04:00 04:01 04:15 Temperature 99.6 F Pulse Rate 99 H 97 H 97 H Pulse Rate [ Anterior Bilateral Throughout] Pulse Rate [ 95 H Apical] Respiratory 26 H 16 20 Rate Respiratory Rate [Anterior Bilateral Throughout] Respiratory 18 Rate [Left Lower Abdomen] Blood Pressure 147/56 147/56 O2 Sat by Pulse 89 95 94 Oximetry 09/01/18 09/01/18 09/01/18 04:31 04:45 05:00 Temperature Pulse Rate 98 H 97 H 100 H Pulse Rate [ Anterior Bilateral Throughout] Pulse Rate [ Apical] Respiratory 18 18 23 Rate Respiratory Rate [Anterior Bilateral Throughout] Respiratory Rate [Left Lower Abdomen] Blood Pressure 136/69 136/69 136/69 O2 Sat by Pulse 94 91 79 L Oximetry 09/01/18 09/01/18 09/01/18 05:15 05:31 05:45 Temperature Pulse Rate 98 H 99 H 104 H Pulse Rate [ Anterior Bilateral Throughout] Pulse Rate [ Apical] Respiratory 18 14 13 Rate Respiratory Rate [Anterior Bilateral Throughout] Respiratory Rate [Left Lower Abdomen] Blood Pressure 175/55 138/65 138/65 O2 Sat by Pulse 89 89 87 Oximetry 09/01/18 09/01/18 09/01/18 06:00 06:15 06:17 Temperature Pulse Rate 105 H 105 H 104 H Pulse Rate [ Anterior Bilateral Throughout] Pulse Rate [ Apical] Respiratory 18 25 H Rate Respiratory Rate [Anterior Bilateral Throughout] Respiratory Rate [Left Lower Abdomen] Blood Pressure 152/75 152/75 152/75 O2 Sat by Pulse 90 86 Oximetry 09/01/18 09/01/18 09/01/18 06:30 06:45 07:00 Temperature Pulse Rate 105 H 105 H 106 H Pulse Rate [ Anterior Bilateral Throughout] Pulse Rate [ Apical] Respiratory 18 19 21 Rate Respiratory Rate [Anterior Bilateral Throughout] Respiratory Rate [Left Lower Abdomen] Blood Pressure 144/76 144/76 162/81 O2 Sat by Pulse 89 89 91 Oximetry 09/01/18 09/01/18 09/01/18 07:15 07:30 07:45 Temperature Pulse Rate 106 H 105 H 104 H Pulse Rate [ Anterior Bilateral Throughout] Pulse Rate [ Apical] Respiratory 27 H 18 23 Rate Respiratory Rate [Anterior Bilateral Throughout] Respiratory Rate [Left Lower Abdomen] Blood Pressure 162/81 162/81 147/65 O2 Sat by Pulse 88 87 93 Oximetry 09/01/18 09/01/18 09/01/18 08:00 08:01 08:08 Temperature 99.4 F Pulse Rate 103 H 92 H Pulse Rate [ 103 H Anterior Bilateral Throughout] Pulse Rate [ Apical] Respiratory 26 H 25 H Rate Respiratory 28 H Rate [Anterior Bilateral Throughout] Respiratory Rate [Left Lower Abdomen] Blood Pressure 163/75 163/75 O2 Sat by Pulse 92 92 Oximetry 09/01/18 09/01/18 08:15 08:37 Temperature Pulse Rate 101 H Pulse Rate [ 106 H Anterior Bilateral Throughout] Pulse Rate [ Apical] Respiratory 25 H Rate Respiratory 22 Rate [Anterior Bilateral Throughout] Respiratory Rate [Left Lower Abdomen] Blood Pressure 163/75 O2 Sat by Pulse 99 92 Oximetry - General Appearance General appearance: well-developed, appears stated age, other (not in distress) EENT: ATNC, PERRL Neck: supple Respiratory: Present: Clear to Ascultation Cardiology: regular, S1S2, no murmurs Gastrointestinal: normoactive bowel sounds, no tenderness, no distended, other (manrique catheter) Integumentary: no rash, warm and dry Neurologic: other (not following any command) Musculoskeletal: other (b/l LE 1+ edema noted) - Lab 09/01/18 04:45 09/01/18 04:45 Most recent lab results Calcium 8.7 mg/dL (8.4-10.2) 09/01/18 04:45 Phosphorus 4.60 mg/dL (2.5-4.5) H 08/30/18 09:33 Magnesium 1.70 mg/dL (1.7-2.3) 09/01/18 04:45 Medications & Allergies - Medications Allergies/Adverse Reactions: Allergies No Known Allergies Allergy (Unverified 08/15/18 16:49) Home Medications: Home Medications Medication Instructions Recorded Confirmed Last Taken Type Carvedilol 6.25 mg PO BID 08/15/18 08/15/18 Unknown History DULoxetine 60 mg PO QDAY 08/15/18 08/15/18 Unknown History Gabapentin 600 mg PO Q6HR PRN 08/15/18 08/15/18 Unknown History Methylphenidate 5 mg PO TID 08/15/18 08/15/18 Unknown History Morphabond ER 60 mg PO Q12HR 08/15/18 08/15/18 Unknown History Pravastatin Sodium 10 mg PO QDAY 08/15/18 08/15/18 Unknown History Tizanidine HCl 4 mg PO Q12HR 08/15/18 08/15/18 Unknown History oxyCODONE /ACETAMINOPHEN 7.5 - 325 mg PO Q8HR 08/15/18 08/15/18 Unknown History ALBUTEROL Inhaler(NF) 90 mcg IH TID 08/29/18 08/29/18 Unknown History Omeprazole-Bicarb 40-1,100 Cap 40 mg PO DAILY 08/29/18 08/29/18 Unknown History Active Medications: Generic Name Dose Route Start Last Admin Trade Name Freq PRN Reason Stop Dose Admin Acetaminophen 650 mg 08/15/18 22:12 08/24/18 21:30 Tylenol PO 650 mg Q4H PRN Administration Pain MILD(1-3)/Fever >100.5/MONDRAGON Albuterol 2.5 mg 08/17/18 17:00 Proventil IH Q3HRT PRN Shortness Of Breath Albuterol/Ipratropium 1 ampul 08/20/18 14:00 09/01/18 08:08 Duoneb *Not For Prn Use* IH 1 ampul Q6HRT LAMAR Administration Lipase/Protease/Amylase 1 each 08/17/18 15:55 Pancresam Elizabeth 10,500 Unit FEEDTUBE PRN PRN For Clogged Feeding Tube Arformoterol Tartrate 15 mcg 08/18/18 20:00 09/01/18 08:08 Brovana Nebu IH 15 mcg Q12HRT LAMAR Administration Budesonide 0.5 mg 08/18/18 20:00 09/01/18 08:08 Pulmicort IH 0.5 mg Q12HRT LAMAR Administration Carvedilol 3.125 mg 08/26/18 15:19 08/31/18 21:22 Coreg PO 3.125 mg BID LAMAR Administration Duloxetine HCl 60 mg 08/16/18 10:00 08/30/18 14:35 Cymbalta PO Not Given QDAY LAMAR Enoxaparin Sodium 40 mg 08/29/18 22:00 08/31/18 21:22 Lovenox SUB-Q 40 mg QDAY@2200 LAMAR Administration Famotidine 10 mg 08/31/18 22:00 08/31/18 21:22 Pepcid PO 10 mg BID LAMAR Administration Hydralazine HCl 10 mg 08/19/18 13:59 08/29/18 14:22 Apresoline IV 10 mg Q3H PRN Administration Hydralazine HCl 25 mg 09/01/18 14:00 Apresoline PO Q8HR [facility] Hydrophilic Ointment 1 applic 08/15/18 21:55 Vaseline Lip Therapy TP Q2HR PRN Dry Lips Micafungin Sodium 100 mg/ 100 mls @ 100 mls/hr 08/26/18 11:00 08/31/18 11:46 Sodium Chloride IV 09/01/18 23:59 100 mls/hr QDAY LAMAR Administration Protocol Magnesium Sulfate 3 gm/ Sodium 106 mls @ 35.333 mls/hr 09/01/18 09:00 Chloride IV 09/01/18 11:59 ONCE ONE Dextrose 1,000 mls @ 75 mls/hr 09/01/18 09:00 D5w IV 09/01/18 22:19 DIRECT LAMAR Metoclopramide HCl 5 mg 08/15/18 22:50 Reglan IV Q6H PRN Nausea And Vomiting Morphine Sulfate 1 mg 08/29/18 15:29 08/31/18 21:32 Morphine IV 1 mg Q4H PRN Administration Pain, Moderate (4-6) Morphine Sulfate 30 mg 08/31/18 12:00 09/01/18 06:18 Morphine PO 30 mg Q6HR LAMAR Administration Ondansetron HCl 4 mg 08/15/18 22:12 08/31/18 17:52 Zofran IV 4 mg Q8H PRN Administration Nausea And Vomiting Potassium Chloride 40 meq 09/01/18 09:00 Potassium Chloride FEEDTUBE 09/01/18 13:01 Q4H LAMAR Simple Syrup 15 ml 08/17/18 15:55 Simple Syrup FEEDTUBE PRN PRN Hypoglycemia Simple Syrup 30 ml 08/17/18 15:55 Simple Syrup FEEDTUBE PRN PRN Hypoglycemia Sodium Bicarbonate 325 mg 08/17/18 15:55 Sodium Bicarbonate FEEDTUBE PRN PRN For Clogged Feeding Tube Sodium Chloride 10 ml 08/16/18 10:00 08/31/18 21:23 Sodium Chloride Flush Syringe 10 Ml IV 10 ml BID LAMAR Administration Sodium Chloride 10 ml 08/15/18 22:12 08/25/18 21:35 Sodium Chloride Flush Syringe 10 Ml IV 10 ml PRN PRN Administration LINE FLUSH
[2018-09-01] MEDS: POTASSIUM CHLORIDE FEEDTUBE SCH ×2 (09:06→20:28)
[2018-09-01] MEDS: COREG PO SCH ×2 (09:30→21:44)
[2018-09-01] MEDS: PEPCID PO SCH ×2 (09:30→21:44)
[2018-09-01] MEDS: SODIUM CHLORIDE FLUSH SYRINGE 10 ML IV SCH (09:35)
[2018-09-01] MEDS: MYCAMINE 100 MG in NACL 0.9% 100 ML IV SCH (09:37)
[2018-09-01 11:48] LABS: Anisocytosis 1+; Band Neutrophils # (Manual) 0.1 K/mm3; Basophils % (Manual) 0 % (0.0-1.8); Eosinophils % (Manual) 0 % (0.0-4.3); Hypochromasia 2+; Platelet Estimate Consistent w Auto; Total Cells Counted 100
--- NOTE | 2018-09-01 12:42 | Progress Note ---
Assessment and Plan Severe sepsis Intermittent fevers andleukocytosis -Fungemia on Micafungin Acute hypoxic-hypercapnic respiratory failure on MVS, re-intubated h/o COPD Acute kidney injury, resolved Acute encephalopathy( toxic-metabolic) Aspiration pneumonia/CAP New onset cardiomyopathy, LVEF 25-30% this admission Previous echo 03/30/2016 at [facility] revealed normal LVEF Previous stress MPI 03/29/2016 at [facility] revealed no ischemia Abnormal ECG showing LBBB, chronic Anemia s/p PRBC -Recent EGD at [facility] 08/08/2018 revealing irregular Z line, gastritis and small hiatal hernia Recent colonoscopy at [facility] 08/08/2018 revealing sigmoid polyp, transverse colon polyps, inflamed hemorrhoids and diverticulosis E.coli/Staph pneumonia Thrombocytopenia resolved Hypernatremia Hypokalemia -Continue with MVS -VAP bundle addressed -Aspiration precautions -Wean supplemental oxygen to keep O2 sats 88-90% -ABG and CXR -Antibiotics/antifungal to complete course per ID -Bronchial washings, no growth -Hypotonic solution for hypernatremia -OGT for free water, medications and nutritional support. - Agitation and analgesia management, restart Seroquel. Stop Propofol -Monitor renal indices -Cardioprotective measures -Stress ulcer prophylaxis -CT head -Aspiration precautions -Accuchecks with glycemic control. Target glucose of 140-180 mg/dL -Continue bronchodilators with pulmonary hygiene per RT -Maintenance of sleep -wake cycle -Mobility program -Agitation and analgesia -Influenza and pneumonia vaccination per protocol ..care plan discussed at length with RN/RT at the bedside Discussed with the at the bedside. Updated him and care plan discussed. It is possible that her deteriorating respiratory status is from a pulmonary embolism, and she has required supportive transfusions. I discussed with the extensively that we will have to get CTA to r/o PE. There is a risk of contrast induced nephropathy. To help mitigate the risk, no further diuretic administration, IV hydration . If there is a PE, she will be a candidate for thrombectomy and IVC filter. PROGNOSIS :GUARDED CONDITION: CRITICAL CODE STATUS: FULL CODE The high probability of a clinically significant, sudden or life-threatening deterioration of the [respiratory, cardiovascular, renal] system(s) required my full and direct attention, intervention and personal management. The aggregate critical care time was [35] minutes without overlap. Time includes spent on; [x] Data Review and interpretation [x] Patient assessment and monitoring of vital signs [x] Documentation [x] Medication orders and management Subjective Date of service: 09/01/18 Principal diagnosis: Acute hypoxemic hypercapnic Resp failure; AE-COPD; Acute kidney injury Interval history: Follow up: Aspiration PNA, Abnormal CXR, Hypotension, Acute renal failure, Acute encephaloapthy, Acute hypoxemic respiratory failure on MVS Seen and examined. Vitals, labs, medications, chart and imaging reviewed. 24 hours events reviewed. Extubated,reamins on BIPAP support Agitation on going per RN. No fevers, no vomiting, on BIPAP, spontaneous eye opening, moving all extremities Very restless Objective Vital Signs - 12hr 09/01/18 09/01/18 09/01/18 00:45 01:00 01:15 Temperature Pulse Rate 96 H 102 H 96 H Pulse Rate [ Anterior Bilateral Throughout] Pulse Rate [ Apical] Respiratory 27 H 22 25 H Rate Respiratory Rate [Anterior Bilateral Throughout] Respiratory Rate [Left Lower Abdomen] Blood Pressure 134/74 153/74 134/74 O2 Sat by Pulse 94 94 94 Oximetry 09/01/18 09/01/18 09/01/18 01:31 01:45 01:54 Temperature Pulse Rate 96 H 96 H 97 H Pulse Rate [ Anterior Bilateral Throughout] Pulse Rate [ Apical] Respiratory 20 18 22 Rate Respiratory Rate [Anterior Bilateral Throughout] Respiratory Rate [Left Lower Abdomen] Blood Pressure 150/70 153/74 150/70 O2 Sat by Pulse 94 95 93 Oximetry 09/01/18 09/01/18 09/01/18 02:00 02:15 02:31 Temperature Pulse Rate 97 H 97 H 92 H Pulse Rate [ 99 H Anterior Bilateral Throughout] Pulse Rate [ Apical] Respiratory 21 24 30 H Rate Respiratory 21 Rate [Anterior Bilateral Throughout] Respiratory Rate [Left Lower Abdomen] Blood Pressure 150/70 150/70 146/67 O2 Sat by Pulse 89 89 88 Oximetry 09/01/18 09/01/18 09/01/18 02:42 02:45 03:00 Temperature Pulse Rate 95 H 93 H 99 H Pulse Rate [ Anterior Bilateral Throughout] Pulse Rate [ Apical] Respiratory 26 H 21 Rate Respiratory Rate [Anterior Bilateral Throughout] Respiratory Rate [Left Lower Abdomen] Blood Pressure 146/67 145/75 140/66 O2 Sat by Pulse 89 89 Oximetry 09/01/18 09/01/18 09/01/18 03:15 03:31 03:45 Temperature Pulse Rate 98 H 95 H 98 H Pulse Rate [ Anterior Bilateral Throughout] Pulse Rate [ Apical] Respiratory 22 22 17 Rate Respiratory Rate [Anterior Bilateral Throughout] Respiratory Rate [Left Lower Abdomen] Blood Pressure 146/67 138/71 138/71 O2 Sat by Pulse 93 96 94 Oximetry 09/01/18 09/01/18 09/01/18 04:00 04:01 04:15 Temperature 99.6 F Pulse Rate 99 H 97 H 97 H Pulse Rate [ Anterior Bilateral Throughout] Pulse Rate [ 95 H Apical] Respiratory 26 H 16 20 Rate Respiratory Rate [Anterior Bilateral Throughout] Respiratory 18 Rate [Left Lower Abdomen] Blood Pressure 147/56 147/56 O2 Sat by Pulse 89 95 94 Oximetry 09/01/18 09/01/18 09/01/18 04:31 04:45 05:00 Temperature Pulse Rate 98 H 97 H 100 H Pulse Rate [ Anterior Bilateral Throughout] Pulse Rate [ Apical] Respiratory 18 18 23 Rate Respiratory Rate [Anterior Bilateral Throughout] Respiratory Rate [Left Lower Abdomen] Blood Pressure 136/69 136/69 136/69 O2 Sat by Pulse 94 91 79 L Oximetry 09/01/18 09/01/18 09/01/18 05:15 05:31 05:45 Temperature Pulse Rate 98 H 99 H 104 H Pulse Rate [ Anterior Bilateral Throughout] Pulse Rate [ Apical] Respiratory 18 14 13 Rate Respiratory Rate [Anterior Bilateral Throughout] Respiratory Rate [Left Lower Abdomen] Blood Pressure 175/55 138/65 138/65 O2 Sat by Pulse 89 89 87 Oximetry 09/01/18 09/01/18 09/01/18 06:00 06:15 06:17 Temperature Pulse Rate 105 H 105 H 104 H Pulse Rate [ Anterior Bilateral Throughout] Pulse Rate [ Apical] Respiratory 18 25 H Rate Respiratory Rate [Anterior Bilateral Throughout] Respiratory Rate [Left Lower Abdomen] Blood Pressure 152/75 152/75 152/75 O2 Sat by Pulse 90 86 Oximetry 09/01/18 09/01/18 09/01/18 06:30 06:45 07:00 Temperature Pulse Rate 105 H 105 H 106 H Pulse Rate [ Anterior Bilateral Throughout] Pulse Rate [ Apical] Respiratory 18 19 21 Rate Respiratory Rate [Anterior Bilateral Throughout] Respiratory Rate [Left Lower Abdomen] Blood Pressure 144/76 144/76 162/81 O2 Sat by Pulse 89 89 91 Oximetry 09/01/18 09/01/18 09/01/18 07:15 07:30 07:45 Temperature Pulse Rate 106 H 105 H 104 H Pulse Rate [ Anterior Bilateral Throughout] Pulse Rate [ Apical] Respiratory 27 H 18 23 Rate Respiratory Rate [Anterior Bilateral Throughout] Respiratory Rate [Left Lower Abdomen] Blood Pressure 162/81 162/81 147/65 O2 Sat by Pulse 88 87 93 Oximetry 09/01/18 09/01/18 09/01/18 08:00 08:01 08:08 Temperature 99.4 F Pulse Rate 103 H 92 H Pulse Rate [ 103 H Anterior Bilateral Throughout] Pulse Rate [ Apical] Respiratory 26 H 25 H Rate Respiratory 28 H Rate [Anterior Bilateral Throughout] Respiratory Rate [Left Lower Abdomen] Blood Pressure 163/75 163/75 O2 Sat by Pulse 92 92 Oximetry 09/01/18 09/01/18 09/01/18 08:15 08:31 08:37 Temperature Pulse Rate 101 H 103 H Pulse Rate [ 106 H Anterior Bilateral Throughout] Pulse Rate [ Apical] Respiratory 25 H 20 Rate Respiratory 22 Rate [Anterior Bilateral Throughout] Respiratory Rate [Left Lower Abdomen] Blood Pressure 163/75 162/79 O2 Sat by Pulse 99 99 92 Oximetry 09/01/18 09/01/18 09/01/18 08:45 09:01 09:15 Temperature Pulse Rate 107 H 107 H 103 H Pulse Rate [ Anterior Bilateral Throughout] Pulse Rate [ Apical] Respiratory 12 20 18 Rate Respiratory Rate [Anterior Bilateral Throughout] Respiratory Rate [Left Lower Abdomen] Blood Pressure 162/79 159/85 159/85 O2 Sat by Pulse 90 92 95 Oximetry 09/01/18 09/01/18 09/01/18 09:30 09:39 09:45 Temperature Pulse Rate 105 H 105 H Pulse Rate [ Anterior Bilateral Throughout] Pulse Rate [ Apical] Respiratory 18 20 Rate Respiratory Rate [Anterior Bilateral Throughout] Respiratory Rate [Left Lower Abdomen] Blood Pressure 161/88 161/88 O2 Sat by Pulse 93 91 89 Oximetry 09/01/18 09/01/18 09/01/18 10:00 10:15 10:31 Temperature Pulse Rate 104 H 105 H 102 H Pulse Rate [ Anterior Bilateral Throughout] Pulse Rate [ Apical] Respiratory 15 27 H 19 Rate Respiratory Rate [Anterior Bilateral Throughout] Respiratory Rate [Left Lower Abdomen] Blood Pressure 161/88 164/79 152/75 O2 Sat by Pulse 90 92 91 Oximetry Constitutional: appears uncomfortable, other (elderly looking CF, normocephalic and atraumatic) Eyes: non-icteric ENT: oropharynx moist, other (NIPPV) Neck: supple, no lymphadenopathy, no JVD, other (no thyromegaly) Effort: mildly labored Ascultation: Bilateral: diminished breath sounds, rales, rhonchi Percussion: Bilateral: not dull Cardiovascular: regular rate and rhythm, other (S1,S2, no murmurs) Gastrointestinal: normoactive bowel sounds, soft, non-tender, non-distended Integumentary: normal Extremities: no cyanosis, no ischemia or petechiae, edema (Left lower extremity) Neurologic: normal mental status, non-focal exam (grossly), pupils equal and round, CN II-XII normal, motor strength normal and Psychiatric: anxious CBC and BMP: 09/06/18 04:20 09/06/18 04:20 ABG, PT/INR, D-dimer: ABG POC ABG pH 7.417 (7.35-7.45) 08/28/18 22:31 POC ABG pCO2 34.4 (35-45) L 08/28/18 22:31 POC ABG pO2 67 (80-105) L 08/28/18 22:31 POC ABG HCO3 22.1 (22-26 mml/L) 08/28/18 22:31 POC ABG Total CO2 23 (23-27mmol/L) 08/28/18 22:31 POC ABG O2 Sat 94 08/28/18 22:31 PT/INR, D-dimer D-Dimer 2768.33 ng/mlDDU (0-234) H 08/15/18 18:31 Abnormal lab findings: Abnormal Labs 08/15/18 08/15/18 08/15/18 17:52 17:52 17:52 WBC 12.7 H RBC 3.25 L Hgb Hct RDW Plt Count Lymph % (Auto) [place] % (Auto) Lymph # [place] # Seg Neutrophils % Seg Neuts % (Manual) Lymphocytes % (Manual) 6.0 L Nucleated RBC % Seg Neutrophils # Seg Neutrophils # Man Lymphocytes # (Manual) 0.8 L D-Dimer POC ABG pH POC ABG pCO2 POC ABG pO2 VBG pH Sodium Potassium 3.4 L Chloride 94.6 L Carbon Dioxide 17 L BUN 67 H Creatinine 3.5 H Glucose 131 H POC Glucose Hemoglobin A1c Lactic Acid 5.20 H* Calcium 7.6 L Phosphorus AST 887 H ALT 316 H Troponin T C-Reactive Protein Total Protein Albumin 3.1 L Triglycerides LDL Cholesterol Direct HDL Cholesterol Urine WBC (Auto) Salicylates Acetaminophen % CD3 Cells % CD19 Cells Absolute CD19 Count Crossmatch 08/15/18 08/15/18 08/15/18 18:11 18:19 18:31 WBC RBC Hgb Hct RDW Plt Count Lymph % (Auto) [place] % (Auto) Lymph # [place] # Seg Neutrophils % Seg Neuts % (Manual) Lymphocytes % (Manual) Nucleated RBC % Seg Neutrophils # Seg Neutrophils # Man Lymphocytes # (Manual) D-Dimer 2768.33 H POC ABG pH 7.173 L POC ABG pCO2 47.8 H POC ABG pO2 177 H VBG pH 7.187 L* Sodium Potassium Chloride Carbon Dioxide BUN Creatinine Glucose POC Glucose Hemoglobin A1c Lactic Acid Calcium Phosphorus AST ALT Troponin T C-Reactive Protein Total Protein Albumin Triglycerides LDL Cholesterol Direct HDL Cholesterol Urine WBC (Auto) Salicylates Acetaminophen % CD3 Cells % CD19 Cells Absolute CD19 Count Crossmatch 08/15/18 08/15/18 08/15/18 18:31 19:14 19:14 WBC RBC Hgb Hct RDW Plt Count Lymph % (Auto) [place] % (Auto) Lymph # [place] # Seg Neutrophils % Seg Neuts % (Manual) Lymphocytes % (Manual) Nucleated RBC % Seg Neutrophils # Seg Neutrophils # Man Lymphocytes # (Manual) D-Dimer POC ABG pH POC ABG pCO2 POC ABG pO2 VBG pH Sodium Potassium Chloride Carbon Dioxide BUN Creatinine Glucose POC Glucose Hemoglobin A1c Lactic Acid 2.70 H* Calcium Phosphorus AST ALT Troponin T 0.454 H* C-Reactive Protein Total Protein Albumin Triglycerides 356 H LDL Cholesterol Direct 4 L HDL Cholesterol 10 L Urine WBC (Auto) Salicylates < 0.3 L Acetaminophen % CD3 Cells % CD19 Cells Absolute CD19 Count Crossmatch 08/15/18 08/15/18 08/15/18 19:14 19:15 23:09 WBC RBC Hgb Hct RDW Plt Count Lymph % (Auto) [place] % (Auto) Lymph # [place] # Seg Neutrophils % Seg Neuts % (Manual) Lymphocytes % (Manual) Nucleated RBC % Seg Neutrophils # Seg Neutrophils # Man Lymphocytes # (Manual) D-Dimer POC ABG pH POC ABG pCO2 POC ABG pO2 VBG pH Sodium Potassium Chloride Carbon Dioxide BUN Creatinine Glucose POC Glucose Hemoglobin A1c Lactic Acid 3.20 H* Calcium Phosphorus AST ALT Troponin T C-Reactive Protein Total Protein Albumin Triglycerides LDL Cholesterol Direct HDL Cholesterol Urine WBC (Auto) 17.0 H Salicylates Acetaminophen < 5.0 L % CD3 Cells % CD19 Cells Absolute CD19 Count Crossmatch 08/15/18 08/16/18 08/16/18 23:09 01:41 05:38 WBC RBC 3.07 L Hgb 9.8 L Hct 28.7 L RDW Plt Count Lymph % (Auto) [place] % (Auto) Lymph # [place] # Seg Neutrophils % Seg Neuts % (Manual) 84.0 H Lymphocytes % (Manual) 6.0 L Nucleated RBC % 4.0 H Seg Neutrophils # Seg Neutrophils # Man Lymphocytes # (Manual) 0.5 L D-Dimer POC ABG pH 7.323 L POC ABG pCO2 34.7 L POC ABG pO2 78 L VBG pH Sodium Potassium Chloride Carbon Dioxide BUN Creatinine Glucose POC Glucose Hemoglobin A1c 6.4 H Lactic Acid Calcium Phosphorus AST ALT Troponin T C-Reactive Protein Total Protein Albumin Triglycerides LDL Cholesterol Direct HDL Cholesterol Urine WBC (Auto) Salicylates Acetaminophen % CD3 Cells % CD19 Cells Absolute CD19 Count Crossmatch 08/16/18 08/16/18 08/17/18 05:38 22:43 03:42 WBC RBC Hgb Hct RDW Plt Count Lymph % (Auto) [place] % (Auto) Lymph # [place] # Seg Neutrophils % Seg Neuts % (Manual) Lymphocytes % (Manual) Nucleated RBC % Seg Neutrophils # Seg Neutrophils # Man Lymphocytes # (Manual) D-Dimer POC ABG pH POC ABG pCO2 POC ABG pO2 VBG pH Sodium Potassium 2.9 L* 3.1 L 2.9 L* Chloride 108.8 H 111.9 H Carbon Dioxide 17 L 19 L 21 L BUN 62 H 40 H 33 H Creatinine 2.0 H Glucose 139 H 145 H POC Glucose Hemoglobin A1c Lactic Acid Calcium 7.8 L 8.3 L Phosphorus 1.50 L AST 619 H ALT 353 H Troponin T C-Reactive Protein Total Protein 6.1 L Albumin 2.8 L Triglycerides LDL Cholesterol Direct HDL Cholesterol Urine WBC (Auto) Salicylates Acetaminophen % CD3 Cells % CD19 Cells Absolute CD19 Count Crossmatch 08/17/18 08/17/1819 11:02 16:42 03:28 WBC RBC Hgb Hct RDW Plt Count Lymph % (Auto) [place] % (Auto) Lymph # [place] # Seg Neutrophils % Seg Neuts % (Manual) Lymphocytes % (Manual) Nucleated RBC % Seg Neutrophils # Seg Neutrophils # Man Lymphocytes # (Manual) D-Dimer POC ABG pH 7.483 H 7.499 H POC ABG pCO2 POC ABG pO2 VBG pH Sodium 147 H Potassium 3.2 L Chloride 115.8 H Carbon Dioxide BUN 23 H Creatinine Glucose 121 H POC Glucose Hemoglobin A1c Lactic Acid Calcium 8.1 L Phosphorus 2.30 L D AST ALT Troponin T C-Reactive Protein Total Protein Albumin Triglycerides LDL Cholesterol Direct HDL Cholesterol Urine WBC (Auto) Salicylates Acetaminophen % CD3 Cells % CD19 Cells Absolute CD19 Count Crossmatch 08/18/18 08/18/18 08/18/18 04:10 13:39 13:39 WBC RBC Hgb Hct RDW Plt Count Lymph % (Auto) [place] % (Auto) Lymph # [place] # Seg Neutrophils % Seg Neuts % (Manual) Lymphocytes % (Manual) Nucleated RBC % Seg Neutrophils # Seg Neutrophils # Man Lymphocytes # (Manual) D-Dimer POC ABG pH POC ABG pCO2 POC ABG pO2 VBG pH Sodium 147 H Potassium 3.3 L Chloride 111.9 H Carbon Dioxide BUN 21 H Creatinine Glucose 113 H POC Glucose Hemoglobin A1c Lactic Acid Calcium Phosphorus 1.50 L D AST ALT Troponin T 0.317 H* D C-Reactive Protein 10.70 H Total Protein Albumin Triglycerides LDL Cholesterol Direct HDL Cholesterol Urine WBC (Auto) Salicylates Acetaminophen % CD3 Cells % CD19 Cells Absolute CD19 Count Crossmatch 08/18/18 08/19/18 08/19/18 16:51 03:47 04:15 WBC RBC Hgb Hct RDW Plt Count Lymph % (Auto) [place] % (Auto) Lymph # [place] # Seg Neutrophils % Seg Neuts % (Manual) Lymphocytes % (Manual) Nucleated RBC % Seg Neutrophils # Seg Neutrophils # Man Lymphocytes # (Manual) D-Dimer POC ABG pH 7.454 H 7.482 H POC ABG pCO2 POC ABG pO2 65 L VBG pH Sodium 154 H Potassium 3.3 L Chloride 115.1 H Carbon Dioxide BUN 19 H Creatinine Glucose 117 H POC Glucose Hemoglobin A1c Lactic Acid Calcium 7.8 L Phosphorus AST ALT Troponin T C-Reactive Protein Total Protein Albumin Triglycerides LDL Cholesterol Direct HDL Cholesterol Urine WBC (Auto) Salicylates Acetaminophen % CD3 Cells % CD19 Cells Absolute CD19 Count Crossmatch 08/19/18 08/19/18 08/20/18 14:32 16:18 03:51 WBC RBC Hgb Hct RDW Plt Count Lymph % (Auto) [place] % (Auto) Lymph # [place] # Seg Neutrophils % Seg Neuts % (Manual) Lymphocytes % (Manual) Nucleated RBC % Seg Neutrophils # Seg Neutrophils # Man Lymphocytes # (Manual) D-Dimer POC ABG pH 7.483 H POC ABG pCO2 33.4 L POC ABG pO2 51 L 74 L VBG pH Sodium Potassium Chloride Carbon Dioxide BUN Creatinine Glucose POC Glucose Hemoglobin A1c Lactic Acid Calcium Phosphorus AST ALT Troponin T C-Reactive Protein Total Protein Albumin Triglycerides LDL Cholesterol Direct HDL Cholesterol Urine WBC (Auto) Salicylates Acetaminophen % CD3 Cells 44 L % CD19 Cells 41 H Absolute CD19 Count 1290 H Crossmatch 08/20/18 08/21/18 08/21/18 05:25 03:54 05:45 WBC 24.1 H RBC 2.83 L Hgb 8.8 L Hct 26.7 L RDW 15.7 H Plt Count 127 L Lymph % (Auto) [place] % (Auto) Lymph # [place] # Seg Neutrophils % Seg Neuts % (Manual) 94.0 H Lymphocytes % (Manual) 4.0 L Nucleated RBC % 1.0 H Seg Neutrophils # Seg Neutrophils # Man 22.7 H Lymphocytes # (Manual) 1.0 L D-Dimer POC ABG pH POC ABG pCO2 31.9 L POC ABG pO2 66 L VBG pH Sodium 146 H D Potassium Chloride 111.2 H Carbon Dioxide BUN 24 H Creatinine Glucose 141 H POC Glucose Hemoglobin A1c Lactic Acid Calcium 8.1 L Phosphorus AST 65 H ALT 104 H Troponin T C-Reactive Protein Total Protein 6.2 L Albumin 2.6 L Triglycerides LDL Cholesterol Direct HDL Cholesterol Urine WBC (Auto) Salicylates Acetaminophen % CD3 Cells % CD19 Cells Absolute CD19 Count Crossmatch 08/21/18 08/22/18 08/22/18 05:45 06:20 06:45 WBC RBC Hgb Hct RDW Plt Count Lymph % (Auto) [place] % (Auto) Lymph # [place] # Seg Neutrophils % Seg Neuts % (Manual) Lymphocytes % (Manual) Nucleated RBC % Seg Neutrophils # Seg Neutrophils # Man Lymphocytes # (Manual) D-Dimer POC ABG pH POC ABG pCO2 32.9 L POC ABG pO2 VBG pH Sodium Potassium 3.5 L Chloride 109.4 H 112.4 H Carbon Dioxide 21 L 20 L BUN 50 H 61 H Creatinine 2.0 H D 1.9 H Glucose 144 H 154 H POC Glucose Hemoglobin A1c Lactic Acid Calcium 7.6 L 7.8 L Phosphorus AST ALT Troponin T C-Reactive Protein Total Protein 5.3 L Albumin 2.1 L Triglycerides LDL Cholesterol Direct HDL Cholesterol Urine WBC (Auto) Salicylates Acetaminophen % CD3 Cells % CD19 Cells Absolute CD19 Count Crossmatch 08/22/18 08/22/18 08/22/18 06:45 15:29 18:40 WBC RBC Hgb Hct RDW Plt Count Lymph % (Auto) [place] % (Auto) Lymph # [place] # Seg Neutrophils % Seg Neuts % (Manual) Lymphocytes % (Manual) Nucleated RBC % Seg Neutrophils # Seg Neutrophils # Man Lymphocytes # (Manual) D-Dimer POC ABG pH POC ABG pCO2 POC ABG pO2 VBG pH Sodium Potassium Chloride Carbon Dioxide BUN Creatinine Glucose POC Glucose 169 H Hemoglobin A1c Lactic Acid Calcium Phosphorus AST ALT Troponin T C-Reactive Protein 4.70 H Total Protein Albumin Triglycerides 197 H LDL Cholesterol Direct HDL Cholesterol Urine WBC (Auto) Salicylates Acetaminophen % CD3 Cells % CD19 Cells Absolute CD19 Count Crossmatch 08/23/18 08/23/18 08/23/18 03:59 21:19 Unknown WBC 12.1 H RBC 2.29 L Hgb 7.1 L Hct 21.7 L RDW 15.7 H Plt Count 106 L Lymph % (Auto) [place] % (Auto) Lymph # [place] # Seg Neutrophils % Seg Neuts % (Manual) 92.0 H Lymphocytes % (Manual) 4.0 L Nucleated RBC % Seg Neutrophils # Seg Neutrophils # Man 11.1 H Lymphocytes # (Manual) 0.5 L D-Dimer POC ABG pH 7.306 L POC ABG pCO2 31.3 L POC ABG pO2 119 H 75 L VBG pH Sodium Potassium Chloride Carbon Dioxide BUN Creatinine Glucose POC Glucose Hemoglobin A1c Lactic Acid Calcium Phosphorus AST ALT Troponin T C-Reactive Protein Total Protein Albumin Triglycerides LDL Cholesterol Direct HDL Cholesterol Urine WBC (Auto) Salicylates Acetaminophen % CD3 Cells % CD19 Cells Absolute CD19 Count Crossmatch 08/23/18 08/24/18 08/24/18 Unknown 04:18 08:30 WBC 12.8 H RBC 2.24 L Hgb 7.0 L Hct 21.1 L RDW Plt Count Lymph % (Auto) [place] % (Auto) Lymph # [place] # Seg Neutrophils % Seg Neuts % (Manual) 93.0 H Lymphocytes % (Manual) 6.0 L Nucleated RBC % Seg Neutrophils # Seg Neutrophils # Man 11.9 H Lymphocytes # (Manual) 0.8 L D-Dimer POC ABG pH POC ABG pCO2 POC ABG pO2 78 L VBG pH Sodium Potassium Chloride 115.7 H Carbon Dioxide 21 L BUN 64 H Creatinine 2.0 H Glucose 149 H POC Glucose Hemoglobin A1c Lactic Acid Calcium 7.5 L Phosphorus AST ALT Troponin T C-Reactive Protein Total Protein 4.8 L Albumin 2.0 L Triglycerides LDL Cholesterol Direct HDL Cholesterol Urine WBC (Auto) Salicylates Acetaminophen % CD3 Cells % CD19 Cells Absolute CD19 Count Crossmatch 08/24/18 08/24/18 08/24/18 08:30 17:44 18:28 WBC RBC Hgb Hct RDW Plt Count Lymph % (Auto) [place] % (Auto) Lymph # [place] # Seg Neutrophils % Seg Neuts % (Manual) Lymphocytes % (Manual) Nucleated RBC % Seg Neutrophils # Seg Neutrophils # Man Lymphocytes # (Manual) D-Dimer POC ABG pH 7.474 H POC ABG pCO2 POC ABG pO2 61 L VBG pH Sodium Potassium Chloride 108.3 H Carbon Dioxide 20 L BUN 65 H Creatinine 2.0 H Glucose 167 H POC Glucose 164 H Hemoglobin A1c Lactic Acid Calcium 7.7 L Phosphorus AST ALT Troponin T C-Reactive Protein Total Protein 5.3 L Albumin 2.2 L Triglycerides LDL Cholesterol Direct HDL Cholesterol Urine WBC (Auto) Salicylates Acetaminophen % CD3 Cells % CD19 Cells Absolute CD19 Count Crossmatch 08/25/18 08/25/18 08/25/18 03:35 05:20 05:20 WBC RBC Hgb 6.7 L Hct 21.0 L RDW Plt Count Lymph % (Auto) [place] % (Auto) Lymph # [place] # Seg Neutrophils % Seg Neuts % (Manual) Lymphocytes % (Manual) Nucleated RBC % Seg Neutrophils # Seg Neutrophils # Man Lymphocytes # (Manual) D-Dimer POC ABG pH POC ABG pCO2 POC ABG pO2 79 L VBG pH Sodium Potassium Chloride Carbon Dioxide 21 L BUN 71 H Creatinine 3.1 H D Glucose 171 H POC Glucose Hemoglobin A1c Lactic Acid Calcium 7.5 L Phosphorus AST ALT Troponin T C-Reactive Protein Total Protein Albumin Triglycerides LDL Cholesterol Direct HDL Cholesterol Urine WBC (Auto) Salicylates Acetaminophen % CD3 Cells % CD19 Cells Absolute CD19 Count Crossmatch 08/25/18 08/25/18 08/25/18 05:20 08:52 12:42 WBC RBC Hgb Hct RDW Plt Count Lymph % (Auto) [place] % (Auto) Lymph # [place] # Seg Neutrophils % Seg Neuts % (Manual) Lymphocytes % (Manual) Nucleated RBC % Seg Neutrophils # Seg Neutrophils # Man Lymphocytes # (Manual) D-Dimer POC ABG pH POC ABG pCO2 POC ABG pO2 VBG pH Sodium Potassium Chloride Carbon Dioxide BUN Creatinine Glucose POC Glucose 166 H Hemoglobin A1c Lactic Acid Calcium Phosphorus AST ALT Troponin T C-Reactive Protein 5.00 H Total Protein Albumin Triglycerides LDL Cholesterol Direct HDL Cholesterol Urine WBC (Auto) Salicylates Acetaminophen % CD3 Cells % CD19 Cells Absolute CD19 Count Crossmatch See Detail 08/25/18 08/26/18 08/26/18 18:05 00:13 04:53 WBC RBC Hgb Hct RDW Plt Count Lymph % (Auto) [place] % (Auto) Lymph # [place] # Seg Neutrophils % Seg Neuts % (Manual) Lymphocytes % (Manual) Nucleated RBC % Seg Neutrophils # Seg Neutrophils # Man Lymphocytes # (Manual) D-Dimer POC ABG pH POC ABG pCO2 30.9 L POC ABG pO2 70 L VBG pH Sodium Potassium Chloride Carbon Dioxide BUN Creatinine Glucose POC Glucose 121 H 164 H Hemoglobin A1c Lactic Acid Calcium Phosphorus AST ALT Troponin T C-Reactive Protein Total Protein Albumin Triglycerides LDL Cholesterol Direct HDL Cholesterol Urine WBC (Auto) Salicylates Acetaminophen % CD3 Cells % CD19 Cells Absolute CD19 Count Crossmatch 08/26/18 08/26/18 08/26/18 05:42 06:00 06:00 WBC RBC 2.62 L Hgb 7.7 L Hct 23.0 L RDW 22.0 H Plt Count Lymph % (Auto) 6.3 L [place] % (Auto) Lymph # 0.7 L [place] # Seg Neutrophils % 88.1 H Seg Neuts % (Manual) Lymphocytes % (Manual) Nucleated RBC % Seg Neutrophils # 9.6 H Seg Neutrophils # Man Lymphocytes # (Manual) D-Dimer POC ABG pH POC ABG pCO2 POC ABG pO2 VBG pH Sodium Potassium Chloride Carbon Dioxide 21 L BUN 70 H Creatinine 3.3 H Glucose 146 H POC Glucose 149 H Hemoglobin A1c Lactic Acid Calcium 8.0 L Phosphorus AST ALT Troponin T C-Reactive Protein Total Protein Albumin Triglycerides LDL Cholesterol Direct HDL Cholesterol Urine WBC (Auto) Salicylates Acetaminophen % CD3 Cells % CD19 Cells Absolute CD19 Count Crossmatch 08/26/18 08/26/18 08/27/18 11:37 23:54 04:35 WBC RBC 2.50 L Hgb 7.6 L Hct 22.3 L RDW 21.8 H Plt Count Lymph % (Auto) 7.3 L [place] % (Auto) Lymph # 0.7 L [place] # Seg Neutrophils % 85.6 H Seg Neuts % (Manual) Lymphocytes % (Manual) Nucleated RBC % Seg Neutrophils # 8.6 H Seg Neutrophils # Man Lymphocytes # (Manual) D-Dimer POC ABG pH POC ABG pCO2 POC ABG pO2 VBG pH Sodium Potassium Chloride Carbon Dioxide BUN Creatinine Glucose POC Glucose 183 H 150 H Hemoglobin A1c Lactic Acid Calcium Phosphorus AST ALT Troponin T C-Reactive Protein Total Protein Albumin Triglycerides LDL Cholesterol Direct HDL Cholesterol Urine WBC (Auto) Salicylates Acetaminophen % CD3 Cells % CD19 Cells Absolute CD19 Count Crossmatch 08/27/18 08/27/18 08/28/18 04:35 12:17 04:43 WBC RBC Hgb Hct RDW Plt Count Lymph % (Auto) [place] % (Auto) Lymph # [place] # Seg Neutrophils % Seg Neuts % (Manual) Lymphocytes % (Manual) Nucleated RBC % Seg Neutrophils # Seg Neutrophils # Man Lymphocytes # (Manual) D-Dimer POC ABG pH POC ABG pCO2 32.1 L 33.8 L POC ABG pO2 68 L 78 L VBG pH Sodium Potassium Chloride Carbon Dioxide 19 L BUN 67 H Creatinine 2.9 H Glucose 155 H POC Glucose Hemoglobin A1c Lactic Acid Calcium Phosphorus 4.70 H AST ALT Troponin T C-Reactive Protein Total Protein Albumin Triglycerides LDL Cholesterol Direct HDL Cholesterol Urine WBC (Auto) Salicylates Acetaminophen % CD3 Cells % CD19 Cells Absolute CD19 Count Crossmatch 08/28/18 08/28/18 08/28/18 05:03 05:20 05:20 WBC RBC 2.43 L Hgb 7.4 L Hct 21.8 L RDW 20.8 H Plt Count Lymph % (Auto) 7.6 L [place] % (Auto) 8.7 H Lymph # 0.7 L [place] # Seg Neutrophils % 82.9 H Seg Neuts % (Manual) Lymphocytes % (Manual) Nucleated RBC % Seg Neutrophils # Seg Neutrophils # Man Lymphocytes # (Manual) D-Dimer POC ABG pH POC ABG pCO2 POC ABG pO2 VBG pH Sodium Potassium Chloride 107.8 H Carbon Dioxide 21 L BUN 55 H Creatinine 2.0 H Glucose 177 H POC Glucose 160 H Hemoglobin A1c Lactic Acid Calcium Phosphorus AST ALT Troponin T C-Reactive Protein Total Protein Albumin Triglycerides LDL Cholesterol Direct HDL Cholesterol Urine WBC (Auto) Salicylates Acetaminophen % CD3 Cells % CD19 Cells Absolute CD19 Count Crossmatch 08/28/18 08/28/18 08/28/18 12:18 18:58 22:31 WBC RBC Hgb Hct RDW Plt Count Lymph % (Auto) [place] % (Auto) Lymph # [place] # Seg Neutrophils % Seg Neuts % (Manual) Lymphocytes % (Manual) Nucleated RBC % Seg Neutrophils # Seg Neutrophils # Man Lymphocytes # (Manual) D-Dimer POC ABG pH POC ABG pCO2 34.4 L POC ABG pO2 67 L VBG pH Sodium Potassium Chloride Carbon Dioxide BUN Creatinine Glucose POC Glucose 164 H 149 H Hemoglobin A1c Lactic Acid Calcium Phosphorus AST ALT Troponin T C-Reactive Protein Total Protein Albumin Triglycerides LDL Cholesterol Direct HDL Cholesterol Urine WBC (Auto) Salicylates Acetaminophen % CD3 Cells % CD19 Cells Absolute CD19 Count Crossmatch 08/28/18 08/29/18 08/29/18 23:33 05:25 05:25 WBC RBC 2.30 L Hgb 7.0 L Hct 20.9 L RDW 21.0 H Plt Count Lymph % (Auto) 11.5 L [place] % (Auto) 9.2 H Lymph # 0.8 L [place] # Seg Neutrophils % 78.8 H Seg Neuts % (Manual) Lymphocytes % (Manual) Nucleated RBC % Seg Neutrophils # Seg Neutrophils # Man Lymphocytes # (Manual) D-Dimer POC ABG pH POC ABG pCO2 POC ABG pO2 VBG pH Sodium Potassium Chloride 111.1 H Carbon Dioxide BUN 55 H Creatinine 1.8 H Glucose 162 H POC Glucose 143 H Hemoglobin A1c Lactic Acid Calcium Phosphorus AST 46 H ALT < 5 L Troponin T C-Reactive Protein Total Protein 5.7 L Albumin 2.1 L Triglycerides LDL Cholesterol Direct HDL Cholesterol Urine WBC (Auto) Salicylates Acetaminophen % CD3 Cells % CD19 Cells Absolute CD19 Count Crossmatch 08/29/18 08/29/18 08/30/18 18:19 23:35 05:03 WBC RBC Hgb Hct RDW Plt Count Lymph % (Auto) [place] % (Auto) Lymph # [place] # Seg Neutrophils % Seg Neuts % (Manual) Lymphocytes % (Manual) Nucleated RBC % Seg Neutrophils # Seg Neutrophils # Man Lymphocytes # (Manual) D-Dimer POC ABG pH POC ABG pCO2 POC ABG pO2 VBG pH Sodium Potassium Chloride Carbon Dioxide BUN Creatinine Glucose POC Glucose 155 H 139 H 122 H Hemoglobin A1c Lactic Acid Calcium Phosphorus AST ALT Troponin T C-Reactive Protein Total Protein Albumin Triglycerides LDL Cholesterol Direct HDL Cholesterol Urine WBC (Auto) Salicylates Acetaminophen % CD3 Cells % CD19 Cells Absolute CD19 Count Crossmatch 08/30/18 08/30/18 08/30/18 09:33 09:33 11:26 WBC RBC 2.58 L Hgb 7.9 L Hct 23.5 L RDW 20.9 H Plt Count Lymph % (Auto) 8.0 L [place] % (Auto) 9.7 H Lymph # 0.8 L [place] # 1.0 H Seg Neutrophils % 82.1 H Seg Neuts % (Manual) Lymphocytes % (Manual) Nucleated RBC % Seg Neutrophils # 8.2 H Seg Neutrophils # Man Lymphocytes # (Manual) D-Dimer POC ABG pH POC ABG pCO2 POC ABG pO2 VBG pH Sodium 146 H Potassium Chloride 110.7 H Carbon Dioxide BUN 56 H Creatinine 1.9 H Glucose 145 H POC Glucose 149 H Hemoglobin A1c Lactic Acid Calcium Phosphorus 4.60 H AST ALT < 5 L Troponin T C-Reactive Protein Total Protein Albumin 2.7 L Triglycerides LDL Cholesterol Direct HDL Cholesterol Urine WBC (Auto) Salicylates Acetaminophen % CD3 Cells % CD19 Cells Absolute CD19 Count Crossmatch 08/30/18 08/30/18 08/31/18 18:08 23:14 05:16 WBC RBC Hgb Hct RDW Plt Count Lymph % (Auto) [place] % (Auto) Lymph # [place] # Seg Neutrophils % Seg Neuts % (Manual) Lymphocytes % (Manual) Nucleated RBC % Seg Neutrophils # Seg Neutrophils # Man Lymphocytes # (Manual) D-Dimer POC ABG pH POC ABG pCO2 POC ABG pO2 VBG pH Sodium Potassium Chloride Carbon Dioxide BUN Creatinine Glucose POC Glucose 156 H 117 H 133 H Hemoglobin A1c Lactic Acid Calcium Phosphorus AST ALT Troponin T C-Reactive Protein Total Protein Albumin Triglycerides LDL Cholesterol Direct HDL Cholesterol Urine WBC (Auto) Salicylates Acetaminophen % CD3 Cells % CD19 Cells Absolute CD19 Count Crossmatch 08/31/18 08/31/18 09/01/18 08:40 23:46 04:45 WBC RBC 2.38 L Hgb 7.3 L Hct 22.1 L RDW 21.1 H Plt Count Lymph % (Auto) [place] % (Auto) Lymph # [place] # Seg Neutrophils % Seg Neuts % (Manual) 93.0 H Lymphocytes % (Manual) 4.0 L Nucleated RBC % Seg Neutrophils # Seg Neutrophils # Man 10.1 H Lymphocytes # (Manual) 0.4 L D-Dimer POC ABG pH POC ABG pCO2 POC ABG pO2 VBG pH Sodium 151 H Potassium Chloride 113.8 H Carbon Dioxide BUN 45 H Creatinine Glucose 144 H POC Glucose 124 H Hemoglobin A1c Lactic Acid Calcium Phosphorus AST ALT Troponin T C-Reactive Protein Total Protein Albumin Triglycerides LDL Cholesterol Direct HDL Cholesterol Urine WBC (Auto) Salicylates Acetaminophen % CD3 Cells % CD19 Cells Absolute CD19 Count Crossmatch 09/01/18 09/01/18 09/01/18 04:45 05:34 11:20 WBC RBC Hgb Hct RDW Plt Count Lymph % (Auto) [place] % (Auto) Lymph # [place] # Seg Neutrophils % Seg Neuts % (Manual) Lymphocytes % (Manual) Nucleated RBC % Seg Neutrophils # Seg Neutrophils # Man Lymphocytes # (Manual) D-Dimer POC ABG pH POC ABG pCO2 POC ABG pO2 VBG pH Sodium 156 H Potassium 3.1 L Chloride 115.2 H Carbon Dioxide BUN 34 H Creatinine Glucose 125 H POC Glucose 128 H 146 H Hemoglobin A1c Lactic Acid Calcium Phosphorus AST ALT Troponin T C-Reactive Protein Total Protein Albumin Triglycerides LDL Cholesterol Direct HDL Cholesterol Urine WBC (Auto) Salicylates Acetaminophen % CD3 Cells % CD19 Cells Absolute CD19 Count Crossmatch Allied health notes reviewed: RT
--- NOTE | 2018-09-01 13:37 | Vascular Lab Report ---
PROCEDURE: VL VENOUS DUPLEX LE LT TECHNIQUE: Left lower extremity venous Doppler performed. Grayscale, color flow and spectral wavefor m images were obtained. HISTORY: swelling, r/o DVT COMPARISON: None FINDINGS: There is flow in left common femoral vein to the popliteal vein. There is appropriate compressibility . There is noncompressibility 1 3 posterior tibial veins.. There is noncompressibility of 2 out of 2 pe roneal veins. Findings are compatible with DVT in the left calf. IMPRESSION: There is DVT identified within several left calf veins. This document is electronically signed by Hoda Glasgow MD., September 01 2018 01:35:21 PM ET
--- NOTE | 2018-09-01 14:37 | Progress Note ---
Assessment and Plan - Patient Problems (1) Acute respiratory failure Current Visit: Yes Status: Acute Plan to address problem: Continue supportive management. (2) Dilated cardiomyopathy Current Visit: Yes Status: Acute Plan to address problem: Medical therapy as tolerated for dilated cardiomyopathy. Subjective Date of service: 09/01/18 Principal diagnosis: Acute hypoxemic hypercapnic Resp failure; AE-COPD; Acute kidney injury Interval history: Patient is comfortable, no new cardiac complaints. Objective Vital Signs Temp Pulse Pulse Pulse Resp Resp Resp 09/01/18 14:32 98 H 31 H 09/01/18 14:18 95 H 30 H 09/01/18 12:00 99.1 F 09/01/18 10:31 102 H 19 09/01/18 10:15 105 H 27 H 09/01/18 10:00 104 H 15 09/01/18 09:45 105 H 20 09/01/18 09:39 09/01/18 09:30 105 H 18 09/01/18 09:15 103 H 18 09/01/18 09:01 107 H 20 09/01/18 08:45 107 H 12 09/01/18 08:37 106 H 22 09/01/18 08:31 103 H 20 09/01/18 08:15 101 H 25 H 09/01/18 08:08 103 H 28 H 09/01/18 08:01 92 H 25 H 09/01/18 08:00 99.4 F 103 H 26 H 09/01/18 07:45 104 H 23 09/01/18 07:30 105 H 18 09/01/18 07:15 106 H 27 H 09/01/18 07:00 106 H 21 09/01/18 06:45 105 H 19 09/01/18 06:30 105 H 18 09/01/18 06:17 104 H 09/01/18 06:15 105 H 25 H 09/01/18 06:00 105 H 18 09/01/18 05:45 104 H 13 09/01/18 05:31 99 H 14 09/01/18 05:15 98 H 18 09/01/18 05:00 100 H 23 09/01/18 04:45 97 H 18 09/01/18 04:31 98 H 18 09/01/18 04:15 97 H 20 09/01/18 04:01 97 H 16 09/01/18 04:00 99.6 F 99 H 95 H 26 H 18 09/01/18 03:45 98 H 17 09/01/18 03:31 95 H 22 09/01/18 03:15 98 H 22 09/01/18 03:00 99 H 21 09/01/18 02:45 93 H 26 H 09/01/18 02:42 95 H 09/01/18 02:31 92 H 30 H 09/01/18 02:15 97 H 24 09/01/18 02:00 97 H 99 H 21 21 09/01/18 01:54 97 H 22 09/01/18 01:45 96 H 18 09/01/18 01:31 96 H 20 09/01/18 01:15 96 H 25 H 09/01/18 01:00 102 H 22 09/01/18 00:45 96 H 27 H 09/01/18 00:30 98 H 20 09/01/18 00:15 92 H 28 H 09/01/18 00:00 98.3 F 95 H 95 H 20 18 08/31/18 23:45 94 H 15 08/31/18 23:30 92 H 15 08/31/18 23:15 94 H 21 08/31/18 23:00 92 H 20 08/31/18 22:45 91 H 26 H 08/31/18 22:30 91 H 23 08/31/18 22:15 94 H 19 08/31/18 22:02 18 08/31/18 22:00 94 H 26 H 08/31/18 21:45 100 H 18 08/31/18 21:31 97 H 17 08/31/18 21:23 99 H 08/31/18 21:22 99 H 08/31/18 21:15 99 H 22 08/31/18 21:11 99 H 22 08/31/18 21:00 100 H 20 08/31/18 20:45 100 H 20 08/31/18 20:39 08/31/18 20:31 98 H 19 08/31/18 20:15 99 H 28 H 08/31/18 20:00 99.1 F 97 H 97 H 99 H 20 28 H 08/31/18 19:45 100 H 24 08/31/18 19:30 98 H 28 H 08/31/18 19:15 96 H 23 08/31/18 19:00 99 H 19 08/31/18 18:45 99 H 26 H 08/31/18 18:30 99 H 26 H 08/31/18 18:15 100 H 28 H 08/31/18 18:00 101 H 27 H 08/31/18 17:46 96 H 08/31/18 17:45 94 H 22 08/31/18 17:31 98 H 21 08/31/18 17:15 98 H 26 H 08/31/18 17:00 97 H 30 H 08/31/18 16:45 98 H 21 08/31/18 16:31 101 H 22 08/31/18 16:15 99 H 25 H 08/31/18 16:01 98 H 19 08/31/18 16:00 102 H 103 H 26 H 08/31/18 15:53 99.8 F H 08/31/18 15:45 100 H 20 08/31/18 15:30 100 H 21 08/31/18 15:15 99 H 26 H 08/31/18 15:00 98 H 25 H 08/31/18 14:45 99 H 26 H 08/31/18 14:38 99 H 26 H BP Pulse Ox 09/01/18 14:32 09/01/18 14:18 134/59 88 09/01/18 12:00 09/01/18 10:31 152/75 91 09/01/18 10:15 164/79 92 09/01/18 10:00 161/88 90 09/01/18 09:45 161/88 89 09/01/18 09:39 91 09/01/18 09:30 161/88 93 09/01/18 09:15 159/85 95 09/01/18 09:01 159/85 92 09/01/18 08:45 162/79 90 09/01/18 08:37 92 09/01/18 08:31 162/79 99 09/01/18 08:15 163/75 99 09/01/18 08:08 09/01/18 08:01 163/75 92 09/01/18 08:00 163/75 92 09/01/18 07:45 147/65 93 09/01/18 07:30 162/81 87 09/01/18 07:15 162/81 88 09/01/18 07:00 162/81 91 09/01/18 06:45 144/76 89 09/01/18 06:30 144/76 89 09/01/18 06:17 152/75 09/01/18 06:15 152/75 86 09/01/18 06:00 152/75 90 09/01/18 05:45 138/65 87 09/01/18 05:31 138/65 89 09/01/18 05:15 175/55 89 09/01/18 05:00 136/69 79 L 09/01/18 04:45 136/69 91 09/01/18 04:31 136/69 94 09/01/18 04:15 147/56 94 09/01/18 04:01 147/56 95 09/01/18 04:00 89 09/01/18 03:45 138/71 94 09/01/18 03:31 138/71 96 09/01/18 03:15 146/67 93 09/01/18 03:00 140/66 89 09/01/18 02:45 145/75 89 09/01/18 02:42 146/67 09/01/18 02:31 146/67 88 09/01/18 02:15 150/70 89 09/01/18 02:00 150/70 89 09/01/18 01:54 150/70 93 09/01/18 01:45 153/74 95 09/01/18 01:31 150/70 94 09/01/18 01:15 134/74 94 09/01/18 01:00 153/74 94 09/01/18 00:45 134/74 94 09/01/18 00:30 134/74 95 09/01/18 00:15 150/67 85 09/01/18 00:00 142/75 89 08/31/18 23:45 150/67 89 08/31/18 23:30 150/67 90 08/31/18 23:15 140/68 92 08/31/18 23:00 140/68 92 08/31/18 22:45 140/61 90 08/31/18 22:30 140/61 90 08/31/18 22:15 140/68 90 08/31/18 22:02 08/31/18 22:00 132/66 91 08/31/18 21:45 140/68 90 08/31/18 21:31 140/68 91 08/31/18 21:23 153/72 08/31/18 21:22 153/72 08/31/18 21:15 148/66 91 08/31/18 21:11 148/66 91 08/31/18 21:00 153/72 92 08/31/18 20:45 129/75 92 08/31/18 20:39 92 08/31/18 20:31 148/66 92 08/31/18 20:15 149/68 90 08/31/18 20:00 149/68 90 08/31/18 19:45 134/73 89 08/31/18 19:30 129/75 89 08/31/18 19:15 151/74 91 08/31/18 19:00 134/73 90 08/31/18 18:45 151/74 90 08/31/18 18:30 151/74 90 08/31/18 18:15 163/79 91 08/31/18 18:00 156/80 92 08/31/18 17:46 163/79 08/31/18 17:45 163/79 93 08/31/18 17:31 163/79 90 08/31/18 17:15 133/76 91 08/31/18 17:00 149/74 92 08/31/18 16:45 133/76 91 08/31/18 16:31 133/76 85 08/31/18 16:15 138/75 88 08/31/18 16:01 138/75 94 08/31/18 16:00 91 08/31/18 15:53 08/31/18 15:45 121/74 94 08/31/18 15:30 121/74 94 08/31/18 15:15 140/64 93 08/31/18 15:00 139/65 93 08/31/18 14:45 139/65 92 08/31/18 14:38 - Physical Examination General: No Apparent Distress HEENT: Positive: PERRL, Other (ET tube in place) Neck: Positive: neck supple, trachea midline Cardiac: Positive: Reg Rate and Rhythm Lungs: Positive: Decreased Breath Sounds Neuro: Positive: Weakness Abdomen: Positive: Soft, Active Bowel Sounds Skin: Positive: Clear Extremities: Absent: edema - Labs and Meds CBC 09/01/18 Range/Units 04:45 WBC 10.9 (4.5-11.0) K/mm3 RBC 2.38 L (3.65-5.03) M/mm3 Hgb 7.3 L (10.1-14.3) gm/dl Hct 22.1 L (30.3-42.9) % Plt Count 333 (140-440) K/mm3 Comprehensive Metabolic Panel 09/01/18 Range/Units 04:45 Sodium 156 H (137-145) mmol/L Potassium 3.1 L (3.6-5.0) mmol/L Chloride 115.2 H (98-107) mmol/L Carbon Dioxide 27 (22-30) mmol/L BUN 34 H (7-17) mg/dL Creatinine 0.8 (0.7-1.2) mg/dL Glucose 125 H (65-100) mg/dL Calcium 8.7 (8.4-10.2) mg/dL - Allied health notes Allied health notes reviewed: RT
--- NOTE | 2018-09-01 14:38 | Event Note ---
Date: 09/01/18 Patient's lower extremity venous Doppler is positive for DVT Left calf Restart chronic anticoagulation with Lovenox 1 mg per KG body weight every 12 hours And later switched to oral anticoagulants However patient has history of GI bleeds in the past, and received 1 unit of PRBC during this admission Will closely watch for any evidence of bleeding, and manage accordingly Plan of care is reviewed with critical care physician as well as patient's nurse
[2018-09-01] MEDS ORDERED: LOVENOX SUB-Q ONE (15:00)
--- NOTE | 2018-09-01 16:05 | Progress Note ---
Assessment and Plan Cultures: 08/15/2018 blood culture: Camryn glabrata 1 of 4 08/15/2018 sputum culture: MSSA and Escherichia coli, wade susceptible 08/18/2018 blood culture: no growth 08/18/2018 urine culture: neg 08/22/2018 blood culture: no growth 08/25/2018 blood culture: no growth A/P: 68-year-old female with COPD, arthritis, history of multiple spinal surgeries was brought to the emergency room on 08/15/2018 with altered mental status: 1) Sepsis with septic shock: resolved. 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 Patient without any history of indwelling PICC line, TPN or immunocompromised status. reported severe explosive diarrhea, N/V before admission after taken 4 days of amoxicillin for dental implant on 07/29/2018 and had a EGD / colonoscopy on 08/08/[address] [facility] [address] Alcantara. I reviewed report - mild chronic gastritis, focal intestinal metaplasia, squamocolumnar mucosa with mild reflux-type changes, and tubular adenoma. -s/p fluconazole 800 mg loading dose then micafungin, s/p amphotericin D6 on 08/26 -serum Crypto negative. -08/15/2018 blood culture: Camryn glabrata -08/18/2018 blood culture: no growth today -CTA chest showed limited study due to respiratory motion artifact. No evidence of pulmonary embolism. Abnormal bilateral lung consolidation which may represent pulmonary edema or pneumonia. Mild cardiomegaly. Indeterminant mediastinal lymph nodes. -CT abdomen showed extensive bilateral lower lobe pulmonary infiltrates, rectal tube and Dodge catheter noted. NG tube at gastric antrum. Left hip prosthesis Extensive degenerative changes noted lumbar spine -TTE EF 25-30% no vegetations -HIV neg/ CD4 1004 -reviewed CT chest abd done 01/05/2019 showed cholecystectomy, mild fatty liver, postoperative changes of lumbar laminectomy with non specific fluid, 9 mm LLL pulmonary nodule which was compared to previous CT and was stable. -CRP 10-->5 3) Acute renal failure: On admission: Nephrology following. 4) Acute respiratory failure: on BiPAP. Recently completed pneumonia treatment. No fever or leucocytosis. Initial Chest x-ray showed reticular nodular infiltrates, some of these appeared to be chronic and were also present in 2010. CTA chest showed limited study due to respiratory motion artifact. No evidence of pulmonary embolism. Abnormal bilateral lung consolidation which may represent pulmonary edema or pneumonia. Mild cardiomegaly. Indeterminant mediastinal lymph nodes. -Sputum culture 08/15 MSSA and Escherichia coli, wade susceptible. completed abx. -Back on 5) Right maxillary sinusitis: received empiric abx. 6) Acute encephalopathy: Likely multifactorial. CT head unremarkable for acute intracranial process. Improving. 7) Cardiomyopathy, LVEF 25-30% this admission. 8) H/O left hip prosthesis ? XR no effusion. CT no enhancement 9) DVT: on anticoagulation. Recs: no fever or leucocytosis, last day of micafungin today Brando Pradhan MD [facility] C: [phone] O: [phone] F: [phone] Subjective Date of service: 09/01/18 Principal diagnosis: Acute hypoxemic hypercapnic Resp failure; AE-COPD; Acute kidney injury Interval history: No fever. Now on BiPAP due to respiratory distress. Also found to have DVT. Objective - Exam Narrative Exam: Physical Exam: Constitutional: awake, on BiPAP. Head, Ears, Nose: Normocephalic, atraumatic. External ears, nose normal Eyes: Conjunctivae/corneas clear. No icterus. No ptosis. Neck: Supple, no meningeal signs Oral: BiPAP Cardiovascular: S1, S2 normal. Respiratory: coarse breath sounds b/l GI: Soft, non-tender; bowel sounds normal. No peritoneal signs Musculoskeletal: No pedal edema, no cyanosis. Skin: No rash or abscess Hem/Lymphatic: No palpable cervical or supraclavicular nodes. No lymphangitis Psych: no agitation Neurological: awake, alert - Constitutional Vitals: Vital Signs Temp Pulse Resp BP Pulse Ox 99.1 F 101 H 31 H 134/59 88 09/01/18 12:00 09/01/18 14:49 09/01/18 14:49 09/01/18 14:18 09/01/18 14:18 Temperature -Last 24 Hours Temperature 99.1 F Temperature 99.4 F Temperature 99.4 F Temperature 99.6 F Temperature 98.3 F Temperature 99.1 F - Labs CBC & Chem 7: 09/01/18 04:45 09/01/18 04:45 Labs: Abnormal lab results 08/31/18 09/01/18 09/01/18 Range/Units 23:46 04:45 04:45 RBC 2.38 L (3.65-5.03) M/mm3 Hgb 7.3 L (10.1-14.3) gm/dl Hct 22.1 L (30.3-42.9) % RDW 21.1 H (13.2-15.2) % Seg Neuts % (Manual) 93.0 H (40.0-70.0) % Lymphocytes % (Manual) 4.0 L (13.4-35.0) % Seg Neutrophils # Man 10.1 H (1.8-7.7) K/mm3 Lymphocytes # (Manual) 0.4 L (1.2-5.4) K/mm3 Sodium 156 H (137-145) mmol/L Potassium 3.1 L (3.6-5.0) mmol/L Chloride 115.2 H (98-107) mmol/L BUN 34 H (7-17) mg/dL Glucose 125 H (65-100) mg/dL POC Glucose 124 H (70-105) 09/01/18 09/01/18 Range/Units 05:34 11:20 RBC (3.65-5.03) M/mm3 Hgb (10.1-14.3) gm/dl Hct (30.3-42.9) % RDW (13.2-15.2) % Seg Neuts % (Manual) (40.0-70.0) % Lymphocytes % (Manual) (13.4-35.0) % Seg Neutrophils # Man (1.8-7.7) K/mm3 Lymphocytes # (Manual) (1.2-5.4) K/mm3 Sodium (137-145) mmol/L Potassium (3.6-5.0) mmol/L Chloride (98-107) mmol/L BUN (7-17) mg/dL Glucose (65-100) mg/dL POC Glucose 128 H 146 H (70-105)
[2018-09-01] MEDS: MORPHINE IV PRN (16:16)
[2018-09-01] MEDS: DEXMEDETOMIDINE 400 MCG in NACL 0.9% 100 ML IV SCH (19:36)
[2018-09-01] MEDS: APRESOLINE PO SCH ×2 (20:28→21:44)
[2018-09-01] MEDS: LOVENOX SUB-Q SCH (21:38)
[2018-09-01] MEDS ORDERED: DIURIL IV SCH (22:00)
[2018-09-02] MEDS: DUONEB *Not for PRN Use IH SCH ×4 (01:39→19:32)
[2018-09-02 05:19] LABS: Hematocrit 24.3 % (30.3-42.9); Hemoglobin 7.9 gm/dl (10.1-14.3); Mean Corpuscular HGB Conc 33 % (30-34); Mean Corpuscular Volume 92 fl (79-97); Platelet Count 370 K/mm3 (140-440); Red Blood Count 2.64 M/mm3 (3.65-5.03)
[2018-09-02 05:39] LABS: Alanine Aminotransferase 22 units/L (7-56); Albumin 2.6 g/dL (3.9-5); BUN/Creatinine Ratio 45; Blood Urea Nitrogen 27 mg/dL (7-17); Calcium 8.7 mg/dL (8.4-10.2); Hemolysis Index 5
[2018-09-02 05:41] LABS: Red Cell Distribution Width 20.8 % (13.2-15.2)
[2018-09-02] MEDS: KCL 20MEQ/100ML 20 MEQ/100 ML BAG IV SCH ×3 (07:00→10:00)
[2018-09-02] MEDS: PULMICORT IH SCH ×2 (07:40→19:32)
[2018-09-02] MEDS: BROVANA NEBU IH SCH ×2 (07:41→19:32)
--- NOTE | 2018-09-02 07:43 | Progress Note ---
Assessment and Plan 1. Acute kidney injury: Vasomotor CHANDANA, likely ATN. Creatinine level is better. Monitor renal function. Avoid nephrotoxic agents. Meds dosage based on GFR. 2. FEN: Hypernatremia, Diuril and hypotonic IV fluids. Hypokalemia, replete K. Metabolic acidosis, improved. 3. Bladder retention: S/p manrique catheter. 4. Acute encephalopathy. 5. Respiratory failure: On BIPAP. 6. Sepsis: Followed by ID. 7. Dilated cardiomyopathy with systolic LV dysfunction. 8. Anemia: S/p PRBC. 9. DVT. Subjective Date of service: 09/02/18 Principal diagnosis: Acute hypoxemic hypercapnic Resp failure; AE-COPD; Acute kidney injury Interval history: Patient was seen and examined at the bedside. Objective - Vital Signs Vital signs: Vital Signs - 12hr 09/01/18 09/01/18 09/01/18 19:45 19:56 20:00 Temperature 98.5 F Pulse Rate 109 H Pulse Rate [ Anterior Bilateral Throughout] Respiratory 40 H Rate Respiratory Rate [Anterior Bilateral Throughout] Blood Pressure 155/75 O2 Sat by Pulse 89 90 Oximetry 09/01/18 09/01/18 09/01/18 20:01 20:07 20:08 Temperature Pulse Rate 103 H 101 H 102 H Pulse Rate [ Anterior Bilateral Throughout] Respiratory 28 H 25 H 40 H Rate Respiratory Rate [Anterior Bilateral Throughout] Blood Pressure 156/84 156/84 156/84 O2 Sat by Pulse 88 87 90 Oximetry 09/01/18 09/01/18 09/01/18 20:15 20:19 20:25 Temperature Pulse Rate 104 H 103 H Pulse Rate [ 109 H Anterior Bilateral Throughout] Respiratory 21 31 H Rate Respiratory 32 H Rate [Anterior Bilateral Throughout] Blood Pressure 155/75 156/84 O2 Sat by Pulse 89 90 Oximetry 09/01/18 09/01/18 09/01/18 20:30 20:31 20:45 Temperature Pulse Rate 103 H 102 H 102 H Pulse Rate [ Anterior Bilateral Throughout] Respiratory 43 H 41 H 37 H Rate Respiratory Rate [Anterior Bilateral Throughout] Blood Pressure 160/94 160/94 156/84 O2 Sat by Pulse 92 92 93 Oximetry 09/01/18 09/01/18 09/01/18 21:00 21:15 21:31 Temperature Pulse Rate 102 H 102 H 102 H Pulse Rate [ Anterior Bilateral Throughout] Respiratory 36 H 44 H 40 H Rate Respiratory Rate [Anterior Bilateral Throughout] Blood Pressure 158/93 158/93 142/71 O2 Sat by Pulse 94 95 92 Oximetry 09/01/18 09/01/18 09/01/18 21:45 22:00 22:01 Temperature Pulse Rate 104 H 96 H Pulse Rate [ Anterior Bilateral Throughout] Respiratory 39 H 38 H Rate Respiratory Rate [Anterior Bilateral Throughout] Blood Pressure 142/71 164/108 O2 Sat by Pulse 93 92 95 Oximetry 09/01/18 09/01/18 09/01/18 22:15 22:31 22:45 Temperature Pulse Rate 104 H 101 H 102 H Pulse Rate [ Anterior Bilateral Throughout] Respiratory 38 H 44 H 35 H Rate Respiratory Rate [Anterior Bilateral Throughout] Blood Pressure 164/108 175/94 175/94 O2 Sat by Pulse 91 91 90 Oximetry 09/01/18 09/01/18 09/01/18 23:01 23:15 23:31 Temperature Pulse Rate 101 H 99 H 101 H Pulse Rate [ Anterior Bilateral Throughout] Respiratory 29 H 26 H 29 H Rate Respiratory Rate [Anterior Bilateral Throughout] Blood Pressure 186/93 175/94 172/103 O2 Sat by Pulse 90 89 88 Oximetry 09/01/18 09/01/18 09/02/18 23:45 23:53 00:00 Temperature 100.4 F H Pulse Rate 101 H Pulse Rate [ Anterior Bilateral Throughout] Respiratory 42 H Rate Respiratory Rate [Anterior Bilateral Throughout] Blood Pressure 172/103 O2 Sat by Pulse 87 92 Oximetry 09/02/18 09/02/18 09/02/18 00:01 00:15 00:31 Temperature Pulse Rate 101 H 96 H 100 H Pulse Rate [ Anterior Bilateral Throughout] Respiratory 35 H 34 H 30 H Rate Respiratory Rate [Anterior Bilateral Throughout] Blood Pressure 184/93 184/93 173/93 O2 Sat by Pulse 87 87 86 Oximetry 09/02/18 09/02/18 09/02/18 00:45 01:01 01:15 Temperature Pulse Rate 100 H 99 H 99 H Pulse Rate [ Anterior Bilateral Throughout] Respiratory 45 H 40 H 43 H Rate Respiratory Rate [Anterior Bilateral Throughout] Blood Pressure 184/93 184/93 173/93 O2 Sat by Pulse 86 85 88 Oximetry 09/02/18 09/02/18 09/02/18 01:31 01:45 02:01 Temperature Pulse Rate 96 H 97 H 97 H Pulse Rate [ 98 H Anterior Bilateral Throughout] Respiratory 36 H 38 H 45 H Rate Respiratory 40 H Rate [Anterior Bilateral Throughout] Blood Pressure 160/88 160/88 166/76 O2 Sat by Pulse 93 93 93 Oximetry 09/02/18 09/02/18 09/02/18 02:15 02:31 02:45 Temperature Pulse Rate 97 H 98 H 97 H Pulse Rate [ Anterior Bilateral Throughout] Respiratory 42 H 41 H 42 H Rate Respiratory Rate [Anterior Bilateral Throughout] Blood Pressure 166/76 173/85 173/85 O2 Sat by Pulse 93 92 91 Oximetry 09/02/18 09/02/18 09/02/18 03:01 03:15 03:31 Temperature Pulse Rate 92 H 97 H 98 H Pulse Rate [ Anterior Bilateral Throughout] Respiratory 43 H 42 H 28 H Rate Respiratory Rate [Anterior Bilateral Throughout] Blood Pressure 160/84 160/84 179/83 O2 Sat by Pulse 92 93 93 Oximetry 09/02/18 09/02/18 09/02/18 03:45 04:00 04:01 Temperature 98.9 F Pulse Rate 59 L 88 Pulse Rate [ Anterior Bilateral Throughout] Respiratory 23 35 H Rate Respiratory Rate [Anterior Bilateral Throughout] Blood Pressure 179/83 150/68 O2 Sat by Pulse 90 Oximetry 09/02/18 09/02/18 09/02/18 04:06 04:15 04:31 Temperature Pulse Rate 79 89 86 Pulse Rate [ Anterior Bilateral Throughout] Respiratory 44 H 25 H 43 H Rate Respiratory Rate [Anterior Bilateral Throughout] Blood Pressure 150/68 150/68 136/60 O2 Sat by Pulse 92 91 91 Oximetry - General Appearance General appearance: well-developed, appears stated age, other (on BIPAP) EENT: ATNC Neck: supple Respiratory: Present: Other (coarse breath sounds) Cardiology: regular, S1S2 Gastrointestinal: normoactive bowel sounds, no tenderness Integumentary: warm and dry Neurologic: other (not responding) Musculoskeletal: other (1+ edema of both LEs noted) - Lab 09/02/18 04:58 09/02/18 04:58 Most recent lab results Calcium 8.7 mg/dL (8.4-10.2) 09/02/18 04:58 Phosphorus 3.10 mg/dL (2.5-4.5) 09/02/18 04:58 Magnesium 1.60 mg/dL (1.7-2.3) L 09/02/18 04:58 Medications & Allergies - Medications Allergies/Adverse Reactions: Allergies No Known Allergies Allergy (Unverified 08/15/18 16:49) Home Medications: Home Medications Medication Instructions Recorded Confirmed Last Taken Type Carvedilol 6.25 mg PO BID 08/15/18 08/15/18 Unknown History DULoxetine 60 mg PO QDAY 08/15/18 08/15/18 Unknown History Gabapentin 600 mg PO Q6HR PRN 08/15/18 08/15/18 Unknown History Methylphenidate 5 mg PO TID 08/15/18 08/15/18 Unknown History Morphabond ER 60 mg PO Q12HR 08/15/18 08/15/18 Unknown History Pravastatin Sodium 10 mg PO QDAY 08/15/18 08/15/18 Unknown History Tizanidine HCl 4 mg PO Q12HR 08/15/18 08/15/18 Unknown History oxyCODONE /ACETAMINOPHEN 7.5 - 325 mg PO Q8HR 08/15/18 08/15/18 Unknown History ALBUTEROL Inhaler(NF) 90 mcg IH TID 08/29/18 08/29/18 Unknown History Omeprazole-Bicarb 40-1,100 Cap 40 mg PO DAILY 08/29/18 08/29/18 Unknown History Active Medications: Generic Name Dose Route Start Last Admin Trade Name Freq PRN Reason Stop Dose Admin Acetaminophen 650 mg 08/15/18 22:12 08/24/18 21:30 Tylenol PO 650 mg Q4H PRN Administration Pain MILD(1-3)/Fever >100.5/MONDRAGON Albuterol 2.5 mg 08/17/18 17:00 Proventil IH Q3HRT PRN Shortness Of Breath Albuterol/Ipratropium 1 ampul 08/20/18 14:00 09/02/18 01:39 Duoneb *Not For Prn Use* IH 1 ampul Q6HRT LAMAR Administration Lipase/Protease/Amylase 1 each 08/17/18 15:55 lAis Elizabeth 10,500 Unit FEEDTUBE PRN PRN For Clogged Feeding Tube Arformoterol Tartrate 15 mcg 08/18/18 20:00 09/02/18 07:41 Brovana Vidau IH 15 mcg Q12HRT LAMAR Administration Budesonide 0.5 mg 08/18/18 20:00 09/02/18 07:40 Pulmicort IH 0.5 mg Q12HRT LAMAR Administration Carvedilol 3.125 mg 08/26/18 15:19 09/01/18 21:44 Coreg PO Not Given BID [facility] Duloxetine HCl 60 mg 08/16/18 10:00 08/30/18 14:35 Cymbalta PO Not Given QDAY [facility] Enoxaparin Sodium 100 mg 09/01/18 22:00 09/01/18 21:38 Lovenox 1 mg/kg (100 mg) 100 mg SUB-Q Administration Q12HR [facility] Famotidine 10 mg 08/31/18 22:00 09/01/18 21:44 Pepcid PO Not Given BID [facility] Hydralazine HCl 10 mg 08/19/18 13:59 08/29/18 14:22 Apresoline IV 10 mg Q3H PRN Administration Hydralazine HCl 25 mg 09/01/18 14:00 09/01/18 21:44 Apresoline PO Not Given Q8HR [facility] Hydrophilic Ointment 1 applic 08/15/18 21:55 09/01/18 09:07 Vaseline Lip Therapy TP 1 applic Q2HR PRN Administration Dry Lips Dexmedetomidine HCl 400 mcg/ 104 mls @ 4.956 mls/hr 09/01/18 18:00 09/01/18 19:36 Sodium Chloride IV 0.2 mcg/kg/hr TITRATE LAMAR 4.956 mls/hr Administration Protocol 0.2 MCG/KG/HR Chlorothiazide Sodium 500 mg/ 50 mls @ 200 mls/hr 09/02/18 22:00 Sodium Chloride IV QDAY@2200 LAMAR Potassium Chloride 20 meq in 100 mls @ 100 mls/hr 09/02/18 07:00 Kcl 20meq/100ml IV 09/02/18 09:59 Q1H LAMAR Magnesium Sulfate 4 gm in 100 mls @ 25 mls/hr 09/02/18 07:41 Magnesium Sulfate 4gm/100ml IV 09/02/18 11:40 ONCE ONE Metoclopramide HCl 5 mg 08/15/18 22:50 Reglan IV Q6H PRN Nausea And Vomiting Morphine Sulfate 1 mg 08/29/18 15:29 09/01/18 16:16 Morphine IV 1 mg Q4H PRN Administration Pain, Moderate (4-6) Morphine Sulfate 30 mg 08/31/18 12:00 09/01/18 20:28 Morphine PO Not Given Q6HR [facility] Ondansetron HCl 4 mg 08/15/18 22:12 08/31/18 17:52 Zofran IV 4 mg Q8H PRN Administration Nausea And Vomiting Simple Syrup 15 ml 08/17/18 15:55 Simple Syrup FEEDTUBE PRN PRN Hypoglycemia Simple Syrup 30 ml 08/17/18 15:55 Simple Syrup FEEDTUBE PRN PRN Hypoglycemia Sodium Bicarbonate 325 mg 08/17/18 15:55 Sodium Bicarbonate FEEDTUBE PRN PRN For Clogged Feeding Tube Sodium Chloride 10 ml 08/16/18 10:00 09/01/18 09:35 Sodium Chloride Flush Syringe 10 Ml IV 10 ml BID LAMAR Administration Sodium Chloride 10 ml 08/15/18 22:12 08/25/18 21:35 Sodium Chloride Flush Syringe 10 Ml IV 10 ml PRN PRN Administration LINE FLUSH
[2018-09-02 07:58] LABS: Total Cells Counted 100
[2018-09-02 07:59] LABS: Anisocytosis 1+; Basophils % (Manual) 0 % (0.0-1.8); Eosinophils % (Manual) 0 % (0.0-4.3)
[2018-09-02 08:00] LABS: Hypochromasia 1+
[2018-09-02] MEDS ORDERED: NACL 0.9% 1000 ML 1,000 ML ONE (08:39)
[2018-09-02] MEDS ORDERED: ZEMURON IV ONE (08:50)
[2018-09-02] MEDS ORDERED: ATROPINE 0.1% (CARDIAC) ONE (08:50)
[2018-09-02] MEDS ORDERED: VERSED IV ONE (08:50)
[2018-09-02] MEDS ORDERED: DIPRIVAN 10 MG/ML 1,000 MG/100 ML BOTTLE IV ONE (08:58)
[2018-09-02] MEDS ORDERED: MAGNESIUM SULFATE 4GM/100ML 4 GM/100 ML BAG IV ONE (09:00)
[2018-09-02] MEDS: LOVENOX SUB-Q SCH ×2 (09:00→21:52)
--- NOTE | 2018-09-02 09:17 | Procedure Note ---
Date of procedure: 09/02/18 Pre-op diagnosis: AMS, tachypnea Procedure: Endotracheal intubation. RSI using rocuronium 50 mg and Midazolam 3mg Mac 4 blade, direct laryngoscopy. Vocal chords visualized, old blood at the back of the oropharynx. Size 8 ETT placed, without difficulty. Good chest rise, equal breath sounds with color change in CO2 detector. Will get post intubation CXR. Procedure complicated by hypotension which responded within 5 minutes of IVF Nsaline Episode of bradycardia, HR at 45, IV atropine 0.5mg , given Surgeon: RAMIREZ HORNE Estimated blood loss: none IV fluids: 250 Pathology: none Condition: critical Disposition: ICU
--- NOTE | 2018-09-02 09:17 | Progress Note ---
Assessment and Plan Severe sepsis Intermittent fevers andleukocytosis -Fungemia on Micafungin Acute hypoxic-hypercapnic respiratory failure on NIPPV h/o COPD Acute kidney injury, resolved Acute encephalopathy( toxic-metabolic) Aspiration pneumonia/CAP New onset cardiomyopathy, LVEF 25-30% this admission Previous echo 03/30/2016 at [facility] revealed normal LVEF Previous stress MPI 03/29/2016 at [facility] revealed no ischemia Abnormal ECG showing LBBB, chronic Anemia s/p PRBC with appropriate response -Recent EGD at [facility] 08/08/2018 revealing irregular Z line, gastritis and small hiatal hernia Recent colonoscopy at [facility] 08/08/2018 revealing sigmoid polyp, transverse colon polyps, inflamed hemorrhoids and diverticulosis E.coli/Staph pneumonia Thrombocytopenia resolved Hypernatremia Hypokalemia -Intubate and get bronchoscopy for lower respiratory tract cultures. -VAP bundle addressed -Aspiration precautions -Replace potassium -Wean supplemental oxygen to keep O2 sats 88-90% -Oxygen restrictive strategies -ABG and CXR -Antibiotics/antifungal to complete course -Hypotonic solution for hypernatremia -Place OGT for free water, medications and nutritional support. Attempts at placing small bowel feeding tube at the bedside was unsuccessful - agitation and analgesia management -Monitor renal indices -Cardioprotective measures -Stress ulcer prophylaxis -CT head -Aspiration precautions -Accuchecks with glycemic control. Target glucose of 140-180 mg/dL -Continue bronchodilators with pulmonary hygiene per RT -Maintenance of sleep -wake cycle -Mobility program -Agitation and analgesia, RAAS 0 to -1 -Influenza and pneumonia vaccination per protocol ..care plan discussed at length with RN/RT at the bedside ...discussed care plan with ICU team on ICU-IDT rounds Discussed with the at the bedside. Updated him and care plan discussed. It is possible that her deteriorating respiratory status is from a pulmonary embolism, but she has recently recovered from CHANDANA. The administration of contrast may induce contrast nephropathy. PROGNOSIS :GUARDED CONDITION: CRITICAL CODE STATUS: FULL CODE The high probability of a clinically significant, sudden or life-threatening deterioration of the [respiratory, cardiovascular, renal] system(s) required my full and direct attention, intervention and personal management. The aggregate critical care time was [35] minutes without overlap. Time includes spent on; [x] Data Review and interpretation [x] Patient assessment and monitoring of vital signs [x] Documentation [x] Medication orders and management Subjective Date of service: 09/02/18 Principal diagnosis: Acute hypoxemic hypercapnic Resp failure; AE-COPD; Acute kidney injury Interval history: Follow up: Aspiration PNA, Abnormal CXR, Hypotension, Acute renal failure, Acute encephaloapthy, Acute hypoxemic respiratory failure on NIPPV Seen and examined. Vitals, labs, medications, chart and imaging reviewed. 24 hours events reviewed. More obtunded with increased work of breathing requiring continuous NIPPV. Left Lext doppler showed DVT , first dose of enoxaparin administered yesterday. No fevers, no vomiting, on BIPAP, moans and groans On Precedex. Called the and discussed the need for oral intubation, mechanical ventilatory support. She will need CT opf her head and bronchoscopy. He was agreeable and gave a telephone consent. Patient intubated and bronchoscopy done. See procedure notes. Objective Vital Signs - 12hr 09/01/18 09/01/18 09/01/18 21:31 21:45 22:00 Temperature Pulse Rate 102 H 104 H Pulse Rate [ Anterior Bilateral Throughout] Respiratory 40 H 39 H Rate Respiratory Rate [Anterior Bilateral Throughout] Blood Pressure 142/71 142/71 O2 Sat by Pulse 92 93 92 Oximetry 09/01/18 09/01/18 09/01/18 22:01 22:15 22:31 Temperature Pulse Rate 96 H 104 H 101 H Pulse Rate [ Anterior Bilateral Throughout] Respiratory 38 H 38 H 44 H Rate Respiratory Rate [Anterior Bilateral Throughout] Blood Pressure 164/108 164/108 175/94 O2 Sat by Pulse 95 91 91 Oximetry 09/01/18 09/01/18 09/01/18 22:45 23:01 23:15 Temperature Pulse Rate 102 H 101 H 99 H Pulse Rate [ Anterior Bilateral Throughout] Respiratory 35 H 29 H 26 H Rate Respiratory Rate [Anterior Bilateral Throughout] Blood Pressure 175/94 186/93 175/94 O2 Sat by Pulse 90 90 89 Oximetry 09/01/18 09/01/18 09/01/18 23:31 23:45 23:53 Temperature 100.4 F H Pulse Rate 101 H 101 H Pulse Rate [ Anterior Bilateral Throughout] Respiratory 29 H 42 H Rate Respiratory Rate [Anterior Bilateral Throughout] Blood Pressure 172/103 172/103 O2 Sat by Pulse 88 87 Oximetry 09/02/18 09/02/18 09/02/18 00:00 00:01 00:15 Temperature Pulse Rate 101 H 96 H Pulse Rate [ Anterior Bilateral Throughout] Respiratory 35 H 34 H Rate Respiratory Rate [Anterior Bilateral Throughout] Blood Pressure 184/93 184/93 O2 Sat by Pulse 92 87 87 Oximetry 09/02/18 09/02/18 09/02/18 00:31 00:45 01:01 Temperature Pulse Rate 100 H 100 H 99 H Pulse Rate [ Anterior Bilateral Throughout] Respiratory 30 H 45 H 40 H Rate Respiratory Rate [Anterior Bilateral Throughout] Blood Pressure 173/93 184/93 184/93 O2 Sat by Pulse 86 86 85 Oximetry 09/02/18 09/02/18 09/02/18 01:15 01:31 01:45 Temperature Pulse Rate 99 H 96 H 97 H Pulse Rate [ 98 H Anterior Bilateral Throughout] Respiratory 43 H 36 H 38 H Rate Respiratory 40 H Rate [Anterior Bilateral Throughout] Blood Pressure 173/93 160/88 160/88 O2 Sat by Pulse 88 93 93 Oximetry 09/02/18 09/02/18 09/02/18 02:01 02:15 02:31 Temperature Pulse Rate 97 H 97 H 98 H Pulse Rate [ Anterior Bilateral Throughout] Respiratory 45 H 42 H 41 H Rate Respiratory Rate [Anterior Bilateral Throughout] Blood Pressure 166/76 166/76 173/85 O2 Sat by Pulse 93 93 92 Oximetry 09/02/18 09/02/18 09/02/18 02:45 03:01 03:15 Temperature Pulse Rate 97 H 92 H 97 H Pulse Rate [ Anterior Bilateral Throughout] Respiratory 42 H 43 H 42 H Rate Respiratory Rate [Anterior Bilateral Throughout] Blood Pressure 173/85 160/84 160/84 O2 Sat by Pulse 91 92 93 Oximetry 09/02/18 09/02/18 09/02/18 03:31 03:45 04:00 Temperature 98.9 F Pulse Rate 98 H 59 L Pulse Rate [ Anterior Bilateral Throughout] Respiratory 28 H 23 Rate Respiratory Rate [Anterior Bilateral Throughout] Blood Pressure 179/83 179/83 O2 Sat by Pulse 93 93 Oximetry 09/02/18 09/02/18 09/02/18 04:01 04:06 04:15 Temperature Pulse Rate 88 79 89 Pulse Rate [ Anterior Bilateral Throughout] Respiratory 35 H 44 H 25 H Rate Respiratory Rate [Anterior Bilateral Throughout] Blood Pressure 150/68 150/68 150/68 O2 Sat by Pulse 90 92 91 Oximetry 09/02/18 09/02/18 09/02/18 04:31 04:45 05:00 Temperature Pulse Rate 86 89 88 Pulse Rate [ Anterior Bilateral Throughout] Respiratory 43 H 43 H 45 H Rate Respiratory Rate [Anterior Bilateral Throughout] Blood Pressure 136/60 136/60 131/78 O2 Sat by Pulse 91 92 90 Oximetry 09/02/18 09/02/18 09/02/18 05:15 05:30 05:45 Temperature Pulse Rate 88 88 99 H Pulse Rate [ Anterior Bilateral Throughout] Respiratory 46 H 44 H 27 H Rate Respiratory Rate [Anterior Bilateral Throughout] Blood Pressure 131/78 127/69 127/69 O2 Sat by Pulse 89 Oximetry 09/02/18 09/02/18 09/02/18 06:01 06:15 06:31 Temperature Pulse Rate 92 H 96 H 99 H Pulse Rate [ Anterior Bilateral Throughout] Respiratory 42 H 42 H 38 H Rate Respiratory Rate [Anterior Bilateral Throughout] Blood Pressure 127/69 144/75 141/84 O2 Sat by Pulse Oximetry 09/02/18 09/02/18 09/02/18 06:45 07:01 07:15 Temperature Pulse Rate 93 H 96 H 94 H Pulse Rate [ Anterior Bilateral Throughout] Respiratory 47 H 49 H 49 H Rate Respiratory Rate [Anterior Bilateral Throughout] Blood Pressure 141/84 164/72 164/72 O2 Sat by Pulse 90 90 Oximetry 09/02/18 09/02/18 09/02/18 07:31 07:42 07:45 Temperature Pulse Rate 93 H 95 H Pulse Rate [ 90 Anterior Bilateral Throughout] Respiratory 44 H 43 H Rate Respiratory 46 H Rate [Anterior Bilateral Throughout] Blood Pressure 164/79 164/79 O2 Sat by Pulse 87 90 88 Oximetry 09/02/18 09/02/18 07:51 08:11 Temperature Pulse Rate 96 H Pulse Rate [ 97 H Anterior Bilateral Throughout] Respiratory 47 H Rate Respiratory 49 H Rate [Anterior Bilateral Throughout] Blood Pressure 160/74 O2 Sat by Pulse 90 Oximetry Constitutional: appears uncomfortable, other (elderly looking CF, normocephalic and atraumatic) Eyes: non-icteric ENT: oropharynx dry, other (NIPPV) Neck: supple, no lymphadenopathy, no JVD, other (no thyromegaly) Effort: very labored Ascultation: Bilateral: diminished breath sounds, rales, rhonchi Percussion: Bilateral: not dull Cardiovascular: regular rate and rhythm, other (S1,S2, no murmurs) Gastrointestinal: normoactive bowel sounds, soft, non-tender, non-distended Integumentary: normal Extremities: no cyanosis, no ischemia or petechiae, edema (Left leg) Neurologic: pupils equal and round, unable to assess Psychiatric: other (obtunded, unable to assess) CBC and BMP: 09/02/18 04:58 09/02/18 04:58 ABG, PT/INR, D-dimer: ABG POC ABG pH 7.488 (7.35-7.45) H 09/02/18 04:13 POC ABG pCO2 39.2 (35-45) 09/02/18 04:13 POC ABG pO2 63 (80-105) L 09/02/18 04:13 POC ABG HCO3 29.7 (22-26 mml/L) 09/02/18 04:13 POC ABG Total CO2 31 (23-27mmol/L) 09/02/18 04:13 POC ABG O2 Sat 93 09/02/18 04:13 PT/INR, D-dimer D-Dimer 2768.33 ng/mlDDU (0-234) H 08/15/18 18:31 Abnormal lab findings: Abnormal Labs 08/15/18 08/15/18 08/15/18 17:52 17:52 17:52 WBC 12.7 H RBC 3.25 L Hgb Hct RDW Plt Count Lymph % (Auto) Archer % (Auto) Lymph # Archer # Seg Neutrophils % Seg Neuts % (Manual) Lymphocytes % (Manual) 6.0 L Nucleated RBC % Seg Neutrophils # Seg Neutrophils # Man Lymphocytes # (Manual) 0.8 L D-Dimer POC ABG pH POC ABG pCO2 POC ABG pO2 VBG pH Sodium Potassium 3.4 L Chloride 94.6 L Carbon Dioxide 17 L BUN 67 H Creatinine 3.5 H Glucose 131 H POC Glucose Hemoglobin A1c Lactic Acid 5.20 H* Calcium 7.6 L Phosphorus Magnesium AST 887 H ALT 316 H Troponin T C-Reactive Protein Total Protein Albumin 3.1 L Triglycerides LDL Cholesterol Direct HDL Cholesterol Urine WBC (Auto) Salicylates Acetaminophen % CD3 Cells % CD19 Cells Absolute CD19 Count Miscellaneous Test Crossmatch 08/15/18 08/15/18 08/15/18 18:11 18:19 18:31 WBC RBC Hgb Hct RDW Plt Count Lymph % (Auto) Archer % (Auto) Lymph # Archer # Seg Neutrophils % Seg Neuts % (Manual) Lymphocytes % (Manual) Nucleated RBC % Seg Neutrophils # Seg Neutrophils # Man Lymphocytes # (Manual) D-Dimer 2768.33 H POC ABG pH 7.173 L POC ABG pCO2 47.8 H POC ABG pO2 177 H VBG pH 7.187 L* Sodium Potassium Chloride Carbon Dioxide BUN Creatinine Glucose POC Glucose Hemoglobin A1c Lactic Acid Calcium Phosphorus Magnesium AST ALT Troponin T C-Reactive Protein Total Protein Albumin Triglycerides LDL Cholesterol Direct HDL Cholesterol Urine WBC (Auto) Salicylates Acetaminophen % CD3 Cells % CD19 Cells Absolute CD19 Count Miscellaneous Test Crossmatch 08/15/18 08/15/18 08/15/18 18:31 19:14 19:14 WBC RBC Hgb Hct RDW Plt Count Lymph % (Auto) Archer % (Auto) Lymph # Archer # Seg Neutrophils % Seg Neuts % (Manual) Lymphocytes % (Manual) Nucleated RBC % Seg Neutrophils # Seg Neutrophils # Man Lymphocytes # (Manual) D-Dimer POC ABG pH POC ABG pCO2 POC ABG pO2 VBG pH Sodium Potassium Chloride Carbon Dioxide BUN Creatinine Glucose POC Glucose Hemoglobin A1c Lactic Acid 2.70 H* Calcium Phosphorus Magnesium AST ALT Troponin T 0.454 H* C-Reactive Protein Total Protein Albumin Triglycerides 356 H LDL Cholesterol Direct 4 L HDL Cholesterol 10 L Urine WBC (Auto) Salicylates < 0.3 L Acetaminophen % CD3 Cells % CD19 Cells Absolute CD19 Count Miscellaneous Test Crossmatch 08/15/18 08/15/18 08/15/18 19:14 19:15 23:09 WBC RBC Hgb Hct RDW Plt Count Lymph % (Auto) Archer % (Auto) Lymph # Archer # Seg Neutrophils % Seg Neuts % (Manual) Lymphocytes % (Manual) Nucleated RBC % Seg Neutrophils # Seg Neutrophils # Man Lymphocytes # (Manual) D-Dimer POC ABG pH POC ABG pCO2 POC ABG pO2 VBG pH Sodium Potassium Chloride Carbon Dioxide BUN Creatinine Glucose POC Glucose Hemoglobin A1c Lactic Acid 3.20 H* Calcium Phosphorus Magnesium AST ALT Troponin T C-Reactive Protein Total Protein Albumin Triglycerides LDL Cholesterol Direct HDL Cholesterol Urine WBC (Auto) 17.0 H Salicylates Acetaminophen < 5.0 L % CD3 Cells % CD19 Cells Absolute CD19 Count Miscellaneous Test Crossmatch 08/15/18 08/16/18 08/16/18 23:09 01:41 05:38 WBC RBC 3.07 L Hgb 9.8 L Hct 28.7 L RDW Plt Count Lymph % (Auto) Archer % (Auto) Lymph # Archer # Seg Neutrophils % Seg Neuts % (Manual) 84.0 H Lymphocytes % (Manual) 6.0 L Nucleated RBC % 4.0 H Seg Neutrophils # Seg Neutrophils # Man Lymphocytes # (Manual) 0.5 L D-Dimer POC ABG pH 7.323 L POC ABG pCO2 34.7 L POC ABG pO2 78 L VBG pH Sodium Potassium Chloride Carbon Dioxide BUN Creatinine Glucose POC Glucose Hemoglobin A1c 6.4 H Lactic Acid Calcium Phosphorus Magnesium AST ALT Troponin T C-Reactive Protein Total Protein Albumin Triglycerides LDL Cholesterol Direct HDL Cholesterol Urine WBC (Auto) Salicylates Acetaminophen % CD3 Cells % CD19 Cells Absolute CD19 Count Miscellaneous Test Crossmatch 08/16/18 08/16/18 08/17/18 05:38 22:43 03:42 WBC RBC Hgb Hct RDW Plt Count Lymph % (Auto) Archer % (Auto) Lymph # Archer # Seg Neutrophils % Seg Neuts % (Manual) Lymphocytes % (Manual) Nucleated RBC % Seg Neutrophils # Seg Neutrophils # Man Lymphocytes # (Manual) D-Dimer POC ABG pH POC ABG pCO2 POC ABG pO2 VBG pH Sodium Potassium 2.9 L* 3.1 L 2.9 L* Chloride 108.8 H 111.9 H Carbon Dioxide 17 L 19 L 21 L BUN 62 H 40 H 33 H Creatinine 2.0 H Glucose 139 H 145 H POC Glucose Hemoglobin A1c Lactic Acid Calcium 7.8 L 8.3 L Phosphorus 1.50 L Magnesium AST 619 H ALT 353 H Troponin T C-Reactive Protein Total Protein 6.1 L Albumin 2.8 L Triglycerides LDL Cholesterol Direct HDL Cholesterol Urine WBC (Auto) Salicylates Acetaminophen % CD3 Cells % CD19 Cells Absolute CD19 Count Miscellaneous Test Crossmatch 08/17/18 08/17/18 08/18/18 11:02 16:42 03:28 WBC RBC Hgb Hct RDW Plt Count Lymph % (Auto) Archer % (Auto) Lymph # Archer # Seg Neutrophils % Seg Neuts % (Manual) Lymphocytes % (Manual) Nucleated RBC % Seg Neutrophils # Seg Neutrophils # Man Lymphocytes # (Manual) D-Dimer POC ABG pH 7.483 H 7.499 H POC ABG pCO2 POC ABG pO2 VBG pH Sodium 147 H Potassium 3.2 L Chloride 115.8 H Carbon Dioxide BUN 23 H Creatinine Glucose 121 H POC Glucose Hemoglobin A1c Lactic Acid Calcium 8.1 L Phosphorus 2.30 L D Magnesium AST ALT Troponin T C-Reactive Protein Total Protein Albumin Triglycerides LDL Cholesterol Direct HDL Cholesterol Urine WBC (Auto) Salicylates Acetaminophen % CD3 Cells % CD19 Cells Absolute CD19 Count Miscellaneous Test Crossmatch 08/18/18 08/18/18 08/18/18 04:10 13:39 13:39 WBC RBC Hgb Hct RDW Plt Count Lymph % (Auto) Archer % (Auto) Lymph # Archer # Seg Neutrophils % Seg Neuts % (Manual) Lymphocytes % (Manual) Nucleated RBC % Seg Neutrophils # Seg Neutrophils # Man Lymphocytes # (Manual) D-Dimer POC ABG pH POC ABG pCO2 POC ABG pO2 VBG pH Sodium 147 H Potassium 3.3 L Chloride 111.9 H Carbon Dioxide BUN 21 H Creatinine Glucose 113 H POC Glucose Hemoglobin A1c Lactic Acid Calcium Phosphorus 1.50 L D Magnesium AST ALT Troponin T 0.317 H* D C-Reactive Protein 10.70 H Total Protein Albumin Triglycerides LDL Cholesterol Direct HDL Cholesterol Urine WBC (Auto) Salicylates Acetaminophen % CD3 Cells % CD19 Cells Absolute CD19 Count Miscellaneous Test Crossmatch 08/18/18 08/19/18 08/19/18 16:51 03:47 04:15 WBC RBC Hgb Hct RDW Plt Count Lymph % (Auto) Archer % (Auto) Lymph # Archer # Seg Neutrophils % Seg Neuts % (Manual) Lymphocytes % (Manual) Nucleated RBC % Seg Neutrophils # Seg Neutrophils # Man Lymphocytes # (Manual) D-Dimer POC ABG pH 7.454 H 7.482 H POC ABG pCO2 POC ABG pO2 65 L VBG pH Sodium 154 H Potassium 3.3 L Chloride 115.1 H Carbon Dioxide BUN 19 H Creatinine Glucose 117 H POC Glucose Hemoglobin A1c Lactic Acid Calcium 7.8 L Phosphorus Magnesium AST ALT Troponin T C-Reactive Protein Total Protein Albumin Triglycerides LDL Cholesterol Direct HDL Cholesterol Urine WBC (Auto) Salicylates Acetaminophen % CD3 Cells % CD19 Cells Absolute CD19 Count Miscellaneous Test Crossmatch 08/19/18 08/19/18 08/20/18 14:32 16:18 03:51 WBC RBC Hgb Hct RDW Plt Count Lymph % (Auto) Archer % (Auto) Lymph # Archer # Seg Neutrophils % Seg Neuts % (Manual) Lymphocytes % (Manual) Nucleated RBC % Seg Neutrophils # Seg Neutrophils # Man Lymphocytes # (Manual) D-Dimer POC ABG pH 7.483 H POC ABG pCO2 33.4 L POC ABG pO2 51 L 74 L VBG pH Sodium Potassium Chloride Carbon Dioxide BUN Creatinine Glucose POC Glucose Hemoglobin A1c Lactic Acid Calcium Phosphorus Magnesium AST ALT Troponin T C-Reactive Protein Total Protein Albumin Triglycerides LDL Cholesterol Direct HDL Cholesterol Urine WBC (Auto) Salicylates Acetaminophen % CD3 Cells 44 L % CD19 Cells 41 H Absolute CD19 Count 1290 H Miscellaneous Test Crossmatch 08/20/18 08/21/18 08/21/18 05:25 03:54 05:45 WBC 24.1 H RBC 2.83 L Hgb 8.8 L Hct 26.7 L RDW 15.7 H Plt Count 127 L Lymph % (Auto) Archer % (Auto) Lymph # Archer # Seg Neutrophils % Seg Neuts % (Manual) 94.0 H Lymphocytes % (Manual) 4.0 L Nucleated RBC % 1.0 H Seg Neutrophils # Seg Neutrophils # Man 22.7 H Lymphocytes # (Manual) 1.0 L D-Dimer POC ABG pH POC ABG pCO2 31.9 L POC ABG pO2 66 L VBG pH Sodium 146 H D Potassium Chloride 111.2 H Carbon Dioxide BUN 24 H Creatinine Glucose 141 H POC Glucose Hemoglobin A1c Lactic Acid Calcium 8.1 L Phosphorus Magnesium AST 65 H ALT 104 H Troponin T C-Reactive Protein Total Protein 6.2 L Albumin 2.6 L Triglycerides LDL Cholesterol Direct HDL Cholesterol Urine WBC (Auto) Salicylates Acetaminophen % CD3 Cells % CD19 Cells Absolute CD19 Count Miscellaneous Test Crossmatch 08/21/18 08/22/18 08/22/18 05:45 06:20 06:45 WBC RBC Hgb Hct RDW Plt Count Lymph % (Auto) Archer % (Auto) Lymph # Archer # Seg Neutrophils % Seg Neuts % (Manual) Lymphocytes % (Manual) Nucleated RBC % Seg Neutrophils # Seg Neutrophils # Man Lymphocytes # (Manual) D-Dimer POC ABG pH POC ABG pCO2 32.9 L POC ABG pO2 VBG pH Sodium Potassium 3.5 L Chloride 109.4 H 112.4 H Carbon Dioxide 21 L 20 L BUN 50 H 61 H Creatinine 2.0 H D 1.9 H Glucose 144 H 154 H POC Glucose Hemoglobin A1c Lactic Acid Calcium 7.6 L 7.8 L Phosphorus Magnesium AST ALT Troponin T C-Reactive Protein Total Protein 5.3 L Albumin 2.1 L Triglycerides LDL Cholesterol Direct HDL Cholesterol Urine WBC (Auto) Salicylates Acetaminophen % CD3 Cells % CD19 Cells Absolute CD19 Count Miscellaneous Test Crossmatch 08/22/18 08/22/18 08/22/18 06:45 15:29 18:40 WBC RBC Hgb Hct RDW Plt Count Lymph % (Auto) Archer % (Auto) Lymph # Archer # Seg Neutrophils % Seg Neuts % (Manual) Lymphocytes % (Manual) Nucleated RBC % Seg Neutrophils # Seg Neutrophils # Man Lymphocytes # (Manual) D-Dimer POC ABG pH POC ABG pCO2 POC ABG pO2 VBG pH Sodium Potassium Chloride Carbon Dioxide BUN Creatinine Glucose POC Glucose 169 H Hemoglobin A1c Lactic Acid Calcium Phosphorus Magnesium AST ALT Troponin T C-Reactive Protein 4.70 H Total Protein Albumin Triglycerides 197 H LDL Cholesterol Direct HDL Cholesterol Urine WBC (Auto) Salicylates Acetaminophen % CD3 Cells % CD19 Cells Absolute CD19 Count Miscellaneous Test Crossmatch 08/23/18 08/23/18 08/23/18 03:59 21:19 Unknown WBC 12.1 H RBC 2.29 L Hgb 7.1 L Hct 21.7 L RDW 15.7 H Plt Count 106 L Lymph % (Auto) Archer % (Auto) Lymph # Archer # Seg Neutrophils % Seg Neuts % (Manual) 92.0 H Lymphocytes % (Manual) 4.0 L Nucleated RBC % Seg Neutrophils # Seg Neutrophils # Man 11.1 H Lymphocytes # (Manual) 0.5 L D-Dimer POC ABG pH 7.306 L POC ABG pCO2 31.3 L POC ABG pO2 119 H 75 L VBG pH Sodium Potassium Chloride Carbon Dioxide BUN Creatinine Glucose POC Glucose Hemoglobin A1c Lactic Acid Calcium Phosphorus Magnesium AST ALT Troponin T C-Reactive Protein Total Protein Albumin Triglycerides LDL Cholesterol Direct HDL Cholesterol Urine WBC (Auto) Salicylates Acetaminophen % CD3 Cells % CD19 Cells Absolute CD19 Count Miscellaneous Test Crossmatch 08/23/18 08/24/18 08/24/18 Unknown 04:18 08:30 WBC 12.8 H RBC 2.24 L Hgb 7.0 L Hct 21.1 L RDW Plt Count Lymph % (Auto) Archer % (Auto) Lymph # Archer # Seg Neutrophils % Seg Neuts % (Manual) 93.0 H Lymphocytes % (Manual) 6.0 L Nucleated RBC % Seg Neutrophils # Seg Neutrophils # Man 11.9 H Lymphocytes # (Manual) 0.8 L D-Dimer POC ABG pH POC ABG pCO2 POC ABG pO2 78 L VBG pH Sodium Potassium Chloride 115.7 H Carbon Dioxide 21 L BUN 64 H Creatinine 2.0 H Glucose 149 H POC Glucose Hemoglobin A1c Lactic Acid Calcium 7.5 L Phosphorus Magnesium AST ALT Troponin T C-Reactive Protein Total Protein 4.8 L Albumin 2.0 L Triglycerides LDL Cholesterol Direct HDL Cholesterol Urine WBC (Auto) Salicylates Acetaminophen % CD3 Cells % CD19 Cells Absolute CD19 Count Miscellaneous Test Crossmatch 08/24/18 08/24/18 08/24/18 08:30 17:44 18:28 WBC RBC Hgb Hct RDW Plt Count Lymph % (Auto) Archer % (Auto) Lymph # Archer # Seg Neutrophils % Seg Neuts % (Manual) Lymphocytes % (Manual) Nucleated RBC % Seg Neutrophils # Seg Neutrophils # Man Lymphocytes # (Manual) D-Dimer POC ABG pH 7.474 H POC ABG pCO2 POC ABG pO2 61 L VBG pH Sodium Potassium Chloride 108.3 H Carbon Dioxide 20 L BUN 65 H Creatinine 2.0 H Glucose 167 H POC Glucose 164 H Hemoglobin A1c Lactic Acid Calcium 7.7 L Phosphorus Magnesium AST ALT Troponin T C-Reactive Protein Total Protein 5.3 L Albumin 2.2 L Triglycerides LDL Cholesterol Direct HDL Cholesterol Urine WBC (Auto) Salicylates Acetaminophen % CD3 Cells % CD19 Cells Absolute CD19 Count Miscellaneous Test Crossmatch 08/25/18 08/25/18 08/25/18 03:35 05:20 05:20 WBC RBC Hgb 6.7 L Hct 21.0 L RDW Plt Count Lymph % (Auto) Archer % (Auto) Lymph # Archer # Seg Neutrophils % Seg Neuts % (Manual) Lymphocytes % (Manual) Nucleated RBC % Seg Neutrophils # Seg Neutrophils # Man Lymphocytes # (Manual) D-Dimer POC ABG pH POC ABG pCO2 POC ABG pO2 79 L VBG pH Sodium Potassium Chloride Carbon Dioxide 21 L BUN 71 H Creatinine 3.1 H D Glucose 171 H POC Glucose Hemoglobin A1c Lactic Acid Calcium 7.5 L Phosphorus Magnesium AST ALT Troponin T C-Reactive Protein Total Protein Albumin Triglycerides LDL Cholesterol Direct HDL Cholesterol Urine WBC (Auto) Salicylates Acetaminophen % CD3 Cells % CD19 Cells Absolute CD19 Count Miscellaneous Test Crossmatch 08/25/18 08/25/18 08/25/18 05:20 08:52 12:42 WBC RBC Hgb Hct RDW Plt Count Lymph % (Auto) Archer % (Auto) Lymph # Archer # Seg Neutrophils % Seg Neuts % (Manual) Lymphocytes % (Manual) Nucleated RBC % Seg Neutrophils # Seg Neutrophils # Man Lymphocytes # (Manual) D-Dimer POC ABG pH POC ABG pCO2 POC ABG pO2 VBG pH Sodium Potassium Chloride Carbon Dioxide BUN Creatinine Glucose POC Glucose 166 H Hemoglobin A1c Lactic Acid Calcium Phosphorus Magnesium AST ALT Troponin T C-Reactive Protein 5.00 H Total Protein Albumin Triglycerides LDL Cholesterol Direct HDL Cholesterol Urine WBC (Auto) Salicylates Acetaminophen % CD3 Cells % CD19 Cells Absolute CD19 Count Miscellaneous Test Crossmatch See Detail 08/25/18 08/26/18 08/26/18 18:05 00:13 04:53 WBC RBC Hgb Hct RDW Plt Count Lymph % (Auto) Archer % (Auto) Lymph # Archer # Seg Neutrophils % Seg Neuts % (Manual) Lymphocytes % (Manual) Nucleated RBC % Seg Neutrophils # Seg Neutrophils # Man Lymphocytes # (Manual) D-Dimer POC ABG pH POC ABG pCO2 30.9 L POC ABG pO2 70 L VBG pH Sodium Potassium Chloride Carbon Dioxide BUN Creatinine Glucose POC Glucose 121 H 164 H Hemoglobin A1c Lactic Acid Calcium Phosphorus Magnesium AST ALT Troponin T C-Reactive Protein Total Protein Albumin Triglycerides LDL Cholesterol Direct HDL Cholesterol Urine WBC (Auto) Salicylates Acetaminophen % CD3 Cells % CD19 Cells Absolute CD19 Count Miscellaneous Test Crossmatch 08/26/18 08/26/18 08/26/18 05:42 06:00 06:00 WBC RBC 2.62 L Hgb 7.7 L Hct 23.0 L RDW 22.0 H Plt Count Lymph % (Auto) 6.3 L Archer % (Auto) Lymph # 0.7 L Archer # Seg Neutrophils % 88.1 H Seg Neuts % (Manual) Lymphocytes % (Manual) Nucleated RBC % Seg Neutrophils # 9.6 H Seg Neutrophils # Man Lymphocytes # (Manual) D-Dimer POC ABG pH POC ABG pCO2 POC ABG pO2 VBG pH Sodium Potassium Chloride Carbon Dioxide 21 L BUN 70 H Creatinine 3.3 H Glucose 146 H POC Glucose 149 H Hemoglobin A1c Lactic Acid Calcium 8.0 L Phosphorus Magnesium AST ALT Troponin T C-Reactive Protein Total Protein Albumin Triglycerides LDL Cholesterol Direct HDL Cholesterol Urine WBC (Auto) Salicylates Acetaminophen % CD3 Cells % CD19 Cells Absolute CD19 Count Miscellaneous Test Crossmatch 08/26/18 08/26/18 08/27/18 11:37 23:54 04:35 WBC RBC 2.50 L Hgb 7.6 L Hct 22.3 L RDW 21.8 H Plt Count Lymph % (Auto) 7.3 L Archer % (Auto) Lymph # 0.7 L Archer # Seg Neutrophils % 85.6 H Seg Neuts % (Manual) Lymphocytes % (Manual) Nucleated RBC % Seg Neutrophils # 8.6 H Seg Neutrophils # Man Lymphocytes # (Manual) D-Dimer POC ABG pH POC ABG pCO2 POC ABG pO2 VBG pH Sodium Potassium Chloride Carbon Dioxide BUN Creatinine Glucose POC Glucose 183 H 150 H Hemoglobin A1c Lactic Acid Calcium Phosphorus Magnesium AST ALT Troponin T C-Reactive Protein Total Protein Albumin Triglycerides LDL Cholesterol Direct HDL Cholesterol Urine WBC (Auto) Salicylates Acetaminophen % CD3 Cells % CD19 Cells Absolute CD19 Count Miscellaneous Test Crossmatch 08/27/18 08/27/18 08/28/18 04:35 12:17 04:43 WBC RBC Hgb Hct RDW Plt Count Lymph % (Auto) Archer % (Auto) Lymph # Archer # Seg Neutrophils % Seg Neuts % (Manual) Lymphocytes % (Manual) Nucleated RBC % Seg Neutrophils # Seg Neutrophils # Man Lymphocytes # (Manual) D-Dimer POC ABG pH POC ABG pCO2 32.1 L 33.8 L POC ABG pO2 68 L 78 L VBG pH Sodium Potassium Chloride Carbon Dioxide 19 L BUN 67 H Creatinine 2.9 H Glucose 155 H POC Glucose Hemoglobin A1c Lactic Acid Calcium Phosphorus 4.70 H Magnesium AST ALT Troponin T C-Reactive Protein Total Protein Albumin Triglycerides LDL Cholesterol Direct HDL Cholesterol Urine WBC (Auto) Salicylates Acetaminophen % CD3 Cells % CD19 Cells Absolute CD19 Count Miscellaneous Test Crossmatch 08/28/18 08/28/18 08/28/18 05:03 05:20 05:20 WBC RBC 2.43 L Hgb 7.4 L Hct 21.8 L RDW 20.8 H Plt Count Lymph % (Auto) 7.6 L Archer % (Auto) 8.7 H Lymph # 0.7 L Archer # Seg Neutrophils % 82.9 H Seg Neuts % (Manual) Lymphocytes % (Manual) Nucleated RBC % Seg Neutrophils # Seg Neutrophils # Man Lymphocytes # (Manual) D-Dimer POC ABG pH POC ABG pCO2 POC ABG pO2 VBG pH Sodium Potassium Chloride 107.8 H Carbon Dioxide 21 L BUN 55 H Creatinine 2.0 H Glucose 177 H POC Glucose 160 H Hemoglobin A1c Lactic Acid Calcium Phosphorus Magnesium AST ALT Troponin T C-Reactive Protein Total Protein Albumin Triglycerides LDL Cholesterol Direct HDL Cholesterol Urine WBC (Auto) Salicylates Acetaminophen % CD3 Cells % CD19 Cells Absolute CD19 Count Miscellaneous Test Crossmatch 08/28/18 08/28/18 08/28/18 12:18 18:58 22:31 WBC RBC Hgb Hct RDW Plt Count Lymph % (Auto) Archer % (Auto) Lymph # Archer # Seg Neutrophils % Seg Neuts % (Manual) Lymphocytes % (Manual) Nucleated RBC % Seg Neutrophils # Seg Neutrophils # Man Lymphocytes # (Manual) D-Dimer POC ABG pH POC ABG pCO2 34.4 L POC ABG pO2 67 L VBG pH Sodium Potassium Chloride Carbon Dioxide BUN Creatinine Glucose POC Glucose 164 H 149 H Hemoglobin A1c Lactic Acid Calcium Phosphorus Magnesium AST ALT Troponin T C-Reactive Protein Total Protein Albumin Triglycerides LDL Cholesterol Direct HDL Cholesterol Urine WBC (Auto) Salicylates Acetaminophen % CD3 Cells % CD19 Cells Absolute CD19 Count Miscellaneous Test Crossmatch 08/28/18 08/29/18 08/29/18 23:33 05:25 05:25 WBC RBC 2.30 L Hgb 7.0 L Hct 20.9 L RDW 21.0 H Plt Count Lymph % (Auto) 11.5 L Archer % (Auto) 9.2 H Lymph # 0.8 L Archer # Seg Neutrophils % 78.8 H Seg Neuts % (Manual) Lymphocytes % (Manual) Nucleated RBC % Seg Neutrophils # Seg Neutrophils # Man Lymphocytes # (Manual) D-Dimer POC ABG pH POC ABG pCO2 POC ABG pO2 VBG pH Sodium Potassium Chloride 111.1 H Carbon Dioxide BUN 55 H Creatinine 1.8 H Glucose 162 H POC Glucose 143 H Hemoglobin A1c Lactic Acid Calcium Phosphorus Magnesium AST 46 H ALT < 5 L Troponin T C-Reactive Protein Total Protein 5.7 L Albumin 2.1 L Triglycerides LDL Cholesterol Direct HDL Cholesterol Urine WBC (Auto) Salicylates Acetaminophen % CD3 Cells % CD19 Cells Absolute CD19 Count Miscellaneous Test Crossmatch 08/29/18 08/29/18 08/30/18 18:19 23:35 05:03 WBC RBC Hgb Hct RDW Plt Count Lymph % (Auto) Archer % (Auto) Lymph # Archer # Seg Neutrophils % Seg Neuts % (Manual) Lymphocytes % (Manual) Nucleated RBC % Seg Neutrophils # Seg Neutrophils # Man Lymphocytes # (Manual) D-Dimer POC ABG pH POC ABG pCO2 POC ABG pO2 VBG pH Sodium Potassium Chloride Carbon Dioxide BUN Creatinine Glucose POC Glucose 155 H 139 H 122 H Hemoglobin A1c Lactic Acid Calcium Phosphorus Magnesium AST ALT Troponin T C-Reactive Protein Total Protein Albumin Triglycerides LDL Cholesterol Direct HDL Cholesterol Urine WBC (Auto) Salicylates Acetaminophen % CD3 Cells % CD19 Cells Absolute CD19 Count Miscellaneous Test Crossmatch 08/30/18 08/30/18 08/30/18 09:33 09:33 09:54 WBC RBC 2.58 L Hgb 7.9 L Hct 23.5 L RDW 20.9 H Plt Count Lymph % (Auto) 8.0 L Archer % (Auto) 9.7 H Lymph # 0.8 L Archer # 1.0 H Seg Neutrophils % 82.1 H Seg Neuts % (Manual) Lymphocytes % (Manual) Nucleated RBC % Seg Neutrophils # 8.2 H Seg Neutrophils # Man Lymphocytes # (Manual) D-Dimer POC ABG pH POC ABG pCO2 POC ABG pO2 VBG pH Sodium 146 H Potassium Chloride 110.7 H Carbon Dioxide BUN 56 H Creatinine 1.9 H Glucose 145 H POC Glucose Hemoglobin A1c Lactic Acid Calcium Phosphorus 4.60 H Magnesium AST ALT < 5 L Troponin T C-Reactive Protein Total Protein Albumin 2.7 L Triglycerides LDL Cholesterol Direct HDL Cholesterol Urine WBC (Auto) Salicylates Acetaminophen % CD3 Cells % CD19 Cells Absolute CD19 Count Miscellaneous Test Flexitest 1 H Crossmatch 08/30/18 08/30/18 08/30/18 09:57 11:26 18:08 WBC RBC Hgb Hct RDW Plt Count Lymph % (Auto) Archer % (Auto) Lymph # Archer # Seg Neutrophils % Seg Neuts % (Manual) Lymphocytes % (Manual) Nucleated RBC % Seg Neutrophils # Seg Neutrophils # Man Lymphocytes # (Manual) D-Dimer POC ABG pH POC ABG pCO2 POC ABG pO2 VBG pH Sodium Potassium Chloride Carbon Dioxide BUN Creatinine Glucose POC Glucose 149 H 156 H Hemoglobin A1c Lactic Acid Calcium Phosphorus Magnesium AST ALT Troponin T C-Reactive Protein Total Protein Albumin Triglycerides LDL Cholesterol Direct HDL Cholesterol Urine WBC (Auto) Salicylates Acetaminophen % CD3 Cells % CD19 Cells Absolute CD19 Count Miscellaneous Test Flexitest 1 H Crossmatch 08/30/18 08/31/18 08/31/18 23:14 05:16 08:40 WBC RBC Hgb Hct RDW Plt Count Lymph % (Auto) Archer % (Auto) Lymph # Archer # Seg Neutrophils % Seg Neuts % (Manual) Lymphocytes % (Manual) Nucleated RBC % Seg Neutrophils # Seg Neutrophils # Man Lymphocytes # (Manual) D-Dimer POC ABG pH POC ABG pCO2 POC ABG pO2 VBG pH Sodium 151 H Potassium Chloride 113.8 H Carbon Dioxide BUN 45 H Creatinine Glucose 144 H POC Glucose 117 H 133 H Hemoglobin A1c Lactic Acid Calcium Phosphorus Magnesium AST ALT Troponin T C-Reactive Protein Total Protein Albumin Triglycerides LDL Cholesterol Direct HDL Cholesterol Urine WBC (Auto) Salicylates Acetaminophen % CD3 Cells % CD19 Cells Absolute CD19 Count Miscellaneous Test Crossmatch 08/31/18 09/01/18 09/01/18 23:46 04:45 04:45 WBC RBC 2.38 L Hgb 7.3 L Hct 22.1 L RDW 21.1 H Plt Count Lymph % (Auto) Archer % (Auto) Lymph # Archer # Seg Neutrophils % Seg Neuts % (Manual) 93.0 H Lymphocytes % (Manual) 4.0 L Nucleated RBC % Seg Neutrophils # Seg Neutrophils # Man 10.1 H Lymphocytes # (Manual) 0.4 L D-Dimer POC ABG pH POC ABG pCO2 POC ABG pO2 VBG pH Sodium 156 H Potassium 3.1 L Chloride 115.2 H Carbon Dioxide BUN 34 H Creatinine Glucose 125 H POC Glucose 124 H Hemoglobin A1c Lactic Acid Calcium Phosphorus Magnesium AST ALT Troponin T C-Reactive Protein Total Protein Albumin Triglycerides LDL Cholesterol Direct HDL Cholesterol Urine WBC (Auto) Salicylates Acetaminophen % CD3 Cells % CD19 Cells Absolute CD19 Count Miscellaneous Test Crossmatch 09/01/18 09/01/18 09/01/18 05:34 11:20 17:52 WBC RBC Hgb Hct RDW Plt Count Lymph % (Auto) Archer % (Auto) Lymph # Archer # Seg Neutrophils % Seg Neuts % (Manual) Lymphocytes % (Manual) Nucleated RBC % Seg Neutrophils # Seg Neutrophils # Man Lymphocytes # (Manual) D-Dimer POC ABG pH 7.553 H POC ABG pCO2 POC ABG pO2 74 L VBG pH Sodium Potassium Chloride Carbon Dioxide BUN Creatinine Glucose POC Glucose 128 H 146 H Hemoglobin A1c Lactic Acid Calcium Phosphorus Magnesium AST ALT Troponin T C-Reactive Protein Total Protein Albumin Triglycerides LDL Cholesterol Direct HDL Cholesterol Urine WBC (Auto) Salicylates Acetaminophen % CD3 Cells % CD19 Cells Absolute CD19 Count Miscellaneous Test Crossmatch 09/01/18 09/02/18 09/02/18 17:52 04:13 04:58 WBC 16.4 H RBC 2.64 L Hgb 7.9 L Hct 24.3 L RDW 20.8 H Plt Count Lymph % (Auto) Archer % (Auto) Lymph # Archer # Seg Neutrophils % Seg Neuts % (Manual) 96.0 H Lymphocytes % (Manual) 1.0 L Nucleated RBC % Seg Neutrophils # Seg Neutrophils # Man 15.7 H Lymphocytes # (Manual) 0.2 L D-Dimer POC ABG pH 7.488 H POC ABG pCO2 POC ABG pO2 63 L VBG pH Sodium Potassium Chloride Carbon Dioxide BUN Creatinine Glucose POC Glucose 143 H Hemoglobin A1c Lactic Acid Calcium Phosphorus Magnesium AST ALT Troponin T C-Reactive Protein Total Protein Albumin Triglycerides LDL Cholesterol Direct HDL Cholesterol Urine WBC (Auto) Salicylates Acetaminophen % CD3 Cells % CD19 Cells Absolute CD19 Count Miscellaneous Test Crossmatch 09/02/18 04:58 WBC RBC Hgb Hct RDW Plt Count Lymph % (Auto) Archer % (Auto) Lymph # Archer # Seg Neutrophils % Seg Neuts % (Manual) Lymphocytes % (Manual) Nucleated RBC % Seg Neutrophils # Seg Neutrophils # Man Lymphocytes # (Manual) D-Dimer POC ABG pH POC ABG pCO2 POC ABG pO2 VBG pH Sodium 158 H Potassium 2.9 L* Chloride 115.7 H Carbon Dioxide BUN 27 H Creatinine 0.6 L Glucose 128 H POC Glucose Hemoglobin A1c Lactic Acid Calcium Phosphorus Magnesium 1.60 L AST 64 H ALT Troponin T C-Reactive Protein Total Protein Albumin 2.6 L Triglycerides LDL Cholesterol Direct HDL Cholesterol Urine WBC (Auto) Salicylates Acetaminophen % CD3 Cells % CD19 Cells Absolute CD19 Count Miscellaneous Test Crossmatch Chest x-ray: image reviewed (Bilateral interstial infiltrates with basilar infiltrates (alveolar)) Allied health notes reviewed: RT
--- NOTE | 2018-09-02 09:22 | Procedure Note ---
Date of procedure: 09/02/18 Pre-op diagnosis: New infiltrates on CXR, worsening hypoxemia, p[ossible aspiration pneumonia Post-op diagnosis: same Procedure: Fiberoptic bronchsocpy. Telephone consent obtained from the . Patietn orally intubated. Time out done. [place] precautions addressed. A fiberoptic bronchsocpe was inserted through the ETT, patient had old blood in the airway. The right luing was inspected, the upper lobe, middle lobe and lower lobes. NO endobronchial lesions, but bloody mucoid secretions. Bronchial washings were obtained from the right lung. The left lung was inspected. The left upper lobe, lingula and lower lobe inspected. No endobronchial lesions. Mucoid secretions mixed with blood noted. Mixed bronchial secretions obtained. patietn tolerated the procedure well, no immediate complications. Anesthesia: other (Previously obtained, rocuronium and midazolam fro intubation) Surgeon: RAMIREZ HORNE Estimated blood loss: none Pathology: list (Bronchial washings, right and left lung) Specimen disposition: to lab Condition: critical Disposition: ICU
--- NOTE | 2018-09-02 09:24 | XRay Report ---
PORTABLE CHEST INDICATION: Tachypnea. COMPARISON: 08/26/2018 FINDINGS: Portable, frontal chest radiograph demonstrates interval extubation with removal of esophagogastric tube and right IJ catheter. Right upper extremity PICC again extends centrally with its tip not well seen, overlying the spine. Stable lower cervical fusion hardware and left shoulder plate and screw repair. Stable cardiomediastinal silhouette with increased/worse diffuse bilateral interstitial infiltrates, again right more than left with partial hemidiaphragmatic obscuration and blunting of the costophrenic angles as well. Cholecystectomy clips also seen. EKG leads. Demineralized bones. CONCLUSION: 1. Mild interval radiographic worsening of diffuse bilateral pulmonary interstitial infiltrates/edema, as described. 2. Interval extubation with various other iatrogenic changes, as described. Thank you for the opportunity to participate in this patient's care.
[2018-09-02] MEDS ORDERED: NACL 0.9% 1000 ML 1,000 ML IV ONE (10:17)
--- NOTE | 2018-09-02 10:33 | Progress Note ---
Assessment and Plan Assessment and plan: --Acute hypoxic hypercapnic respiratory failure; extubated 08/29/18 Re Intubated today secondary to acute respiratory failure Status post bronchoscopy, findings reviewed, sent for histopathology Continue ventilatory support, nebulizers, IV antibiotics, pulmonary critical following --Hypernatremia; worsening sodium levels, management per nephrology free water flushes via [place], Closely monitor electrolytes --Severe Hypokalemia; replace with KCl, follow electrolytes --Anemia;s/p PRBC transfusion hemoglobin today 7.3 monitor,transfuse as needed --Left lower extremity DVT; anticoagulation with Lovenox Check CTA chest to rule out PE --Sepsis; secondary to aspiration pneumonia, --Aspiration pneumonia; on micafungin, ID again started cefepime and Vanco --Hypertension; continue current antihypertensives --Severe malnutrition/hypoalbuminemia; Nutrition consults and supportive care --Acute kidney injury; probably secondary to ATN avoid nephrotoxins, Nephrology following ----Acute systolic congestive heart failure; Ejection fraction 25-30%, continue current management Cardiology following --Elevated Transaminases; resolved --DVT prophylaxis; Lovenox Consults and recommendations noted and appreciated Plan of care reviewed with the patient's nurse The high probability of a clinically significant, sudden or life threatening deterioration of the [respiratory, cardiology, ID, renal and metabolic] system(s) required my full and direct attention, intervention and personal management. The aggregate critical care time was [33] minutes. This time is in addition to time spent performing reported procedures but includes the following: [x] Data Review and interpretation [x] Patient assessment and monitoring of vital signs [x] Documentation [x] Medication orders and management History Interval history: Patient seen and examined medical record. Patient is intubated this morning secondary to respiratory failure Patient also underwent bronchoscopy, bronchial washings sent for histopathology Patient is orally intubated on vent, sedated Vital signs reviewed Hospitalist Physical - Constitutional Vitals: Temp Pulse Resp BP Pulse Ox 98.9 F 95 H 49 H 124/60 93 09/02/18 04:00 09/02/18 09:47 09/02/18 08:11 09/02/18 09:47 09/02/18 09:47 General appearance: Present: no acute distress, well-nourished, other (on BiPAP) - EENT Eyes: Present: PERRL, EOM intact - Neck Neck: Present: supple, normal ROM - Respiratory Respiratory effort: normal Respiratory: bilateral: diminished, rhonchi, negative: rales, wheezing - Cardiovascular Rhythm: regular Heart Sounds: Present: S1 & S2 - Extremities Extremities: no ischemia, pulses symmetrical - Abdominal General gastrointestinal: soft, non-tender, non-distended, normal bowel sounds - Integumentary Integumentary: Present: clear, warm - Psychiatric Psychiatric: other (intubated on vent) - Neurologic Neurologic: other (intubated on vent) Results - Labs CBC & Chem 7: 09/02/18 04:58 09/02/18 04:58 Labs: Laboratory Last Values WBC 16.4 K/mm3 (4.5-11.0) H 09/02/18 04:58 RBC 2.64 M/mm3 (3.65-5.03) L 09/02/18 04:58 Hgb 7.9 gm/dl (10.1-14.3) L 09/02/18 04:58 Hct 24.3 % (30.3-42.9) L 09/02/18 04:58 MCV 92 fl (79-97) 09/02/18 04:58 MCH 30 pg (28-32) 09/02/18 04:58 MCHC 33 % (30-34) 09/02/18 04:58 RDW 20.8 % (13.2-15.2) H 09/02/18 04:58 Plt Count 370 K/mm3 (140-440) 09/02/18 04:58 Lymph % (Auto) 8.0 % (13.4-35.0) L 08/30/18 09:33 [place] % (Auto) 9.7 % (0.0-7.3) H 08/30/18 09:33 Eos % (Auto) 0.0 % (0.0-4.3) 08/30/18 09:33 Baso % (Auto) 0.2 % (0.0-1.8) 08/30/18 09:33 Lymph # 0.8 K/mm3 (1.2-5.4) L 08/30/18 09:33 [place] # 1.0 K/mm3 (0.0-0.8) H 08/30/18 09:33 Eos # 0.0 K/mm3 (0.0-0.4) 08/30/18 09:33 Baso # 0.0 K/mm3 (0.0-0.1) 08/30/18 09:33 Add Manual Diff Complete 09/02/18 04:58 Total Counted 100 09/02/18 04:58 Seg Neutrophils % 82.1 % (40.0-70.0) H 08/30/18 09:33 Seg Neuts % (Manual) 96.0 % (40.0-70.0) H 09/02/18 04:58 Band Neutrophils % 0 % 09/02/18 04:58 Lymphocytes % (Manual) 1.0 % (13.4-35.0) L 09/02/18 04:58 Reactive Lymphs % (Man) 0 % 09/02/18 04:58 Monocytes % (Manual) 3.0 % (0.0-7.3) 09/02/18 04:58 Eosinophils % (Manual) 0 % (0.0-4.3) 09/02/18 04:58 Basophils % (Manual) 0 % (0.0-1.8) 09/02/18 04:58 Metamyelocytes % 0 % 09/02/18 04:58 Myelocytes % 0 % 09/02/18 04:58 Promyelocytes % 0 % 09/02/18 04:58 Blast Cells % 0 % 09/02/18 04:58 Nucleated RBC % Not Reportable 09/02/18 04:58 Seg Neutrophils # 8.2 K/mm3 (1.8-7.7) H 08/30/18 09:33 Seg Neutrophils # Man 15.7 K/mm3 (1.8-7.7) H 09/02/18 04:58 Band Neutrophils # 0.0 K/mm3 09/02/18 04:58 Abs Lymphs (Manual) 3262 cells/uL (850-3900) 08/19/18 14:32 Lymphocytes # (Manual) 0.2 K/mm3 (1.2-5.4) L 09/02/18 04:58 Abs React Lymphs (Man) 0.0 K/mm3 09/02/18 04:58 Monocytes # (Manual) 0.5 K/mm3 (0.0-0.8) 09/02/18 04:58 Eosinophils # (Manual) 0.0 K/mm3 (0.0-0.4) 09/02/18 04:58 Basophils # (Manual) 0.0 K/mm3 (0.0-0.1) 09/02/18 04:58 Metamyelocytes # 0.0 K/mm3 09/02/18 04:58 Myelocytes # 0.0 K/mm3 09/02/18 04:58 Promyelocytes # 0.0 K/mm3 09/02/18 04:58 Blast Cells # 0.0 K/mm3 09/02/18 04:58 WBC Morphology Not Reportable 09/02/18 04:58 Hypersegmented Neuts Not Reportable 09/02/18 04:58 Hyposegmented Neuts Not Reportable 09/02/18 04:58 Hypogranular Neuts Not Reportable 09/02/18 04:58 Smudge Cells Not Reportable 09/02/18 04:58 Toxic Granulation Not Reportable 09/02/18 04:58 Toxic Vacuolation Not Reportable 09/02/18 04:58 Dohle Bodies Not Reportable 09/02/18 04:58 Pelger-Huet Anomaly Not Reportable 09/02/18 04:58 Rosy Rods Not Reportable 09/02/18 04:58 Platelet Estimate Appears normal 09/02/18 04:58 Clumped Platelets Not Reportable 09/02/18 04:58 Plt Clumps, EDTA Not Reportable 09/02/18 04:58 Large Platelets Not Reportable 09/02/18 04:58 Giant Platelets Not Reportable 09/02/18 04:58 Platelet Satelliting Not Reportable 09/02/18 04:58 Plt Morphology Comment Not Reportable 09/02/18 04:58 RBC Morphology Not Reportable 09/02/18 04:58 Dimorphic RBCs Not Reportable 09/02/18 04:58 Polychromasia Not Reportable 09/02/18 04:58 Hypochromasia 1+ 09/02/18 04:58 Poikilocytosis Not Reportable 09/02/18 04:58 Anisocytosis 1+ 09/02/18 04:58 Microcytosis Not Reportable 09/02/18 04:58 Macrocytosis Not Reportable 09/02/18 04:58 Spherocytes Not Reportable 09/02/18 04:58 Pappenheimer Bodies Not Reportable 09/02/18 04:58 Sickle Cells Not Reportable 09/02/18 04:58 Target Cells Not Reportable 09/02/18 04:58 Tear Drop Cells Not Reportable 09/02/18 04:58 Ovalocytes Not Reportable 09/02/18 04:58 Helmet Cells Not Reportable 09/02/18 04:58 [place] Bodies Not Reportable 09/02/18 04:58 Clarence Rings Not Reportable 09/02/18 04:58 Bertha Cells Not Reportable 09/02/18 04:58 Bite Cells Not Reportable 09/02/18 04:58 Crenated Cell Not Reportable 09/02/18 04:58 Elliptocytes Not Reportable 09/02/18 04:58 Acanthocytes (Spur) Not Reportable 09/02/18 04:58 Rouleaux Not Reportable 09/02/18 04:58 Hemoglobin C Crystals Not Reportable 09/02/18 04:58 Schistocytes Not Reportable 09/02/18 04:58 Malaria parasites Not Reportable 09/02/18 04:58 Ceasar Bodies Not Reportable 09/02/18 04:58 Hem Pathologist Commnt No 09/02/18 04:58 D-Dimer 2768.33 ng/mlDDU (0-234) H 08/15/18 18:31 Heparin Anti-Xa, Unfract Negative (Negative) 08/22/18 15:29 POC ABG pH 7.488 (7.35-7.45) H 09/02/18 04:13 POC ABG pCO2 39.2 (35-45) 09/02/18 04:13 POC ABG pO2 63 (80-105) L 09/02/18 04:13 POC ABG HCO3 29.7 (22-26 mml/L) 09/02/18 04:13 POC ABG Total CO2 31 (23-27mmol/L) 09/02/18 04:13 POC ABG O2 Sat 93 09/02/18 04:13 POC ABG Base Excess 6 ((-2) - (+3)mmol/L) 09/02/18 04:13 VBG pH 7.187 (7.320-7.420) L* 08/15/18 18:19 FiO2 85 % 09/02/18 04:13 Sodium 158 mmol/L (137-145) H 09/02/18 04:58 Potassium 2.9 mmol/L (3.6-5.0) L* 09/02/18 04:58 Chloride 115.7 mmol/L (98-107) H 09/02/18 04:58 Carbon Dioxide 30 mmol/L (22-30) 09/02/18 04:58 Anion Gap 15 mmol/L 09/02/18 04:58 BUN 27 mg/dL (7-17) H 09/02/18 04:58 Creatinine 0.6 mg/dL (0.7-1.2) L 09/02/18 04:58 Estimated GFR > 60 ml/min 09/02/18 04:58 BUN/Creatinine Ratio 45 % 09/02/18 04:58 Glucose 128 mg/dL (65-100) H 09/02/18 04:58 POC Glucose 143 (70-105) H 09/01/18 17:52 Hemoglobin A1c 6.4 % (4-6) H 08/15/18 23:09 Lactic Acid 1.20 mmol/L (0.7-2.0) 08/22/18 15:29 Calcium 8.7 mg/dL (8.4-10.2) 09/02/18 04:58 Phosphorus 3.10 mg/dL (2.5-4.5) 09/02/18 04:58 Magnesium 1.60 mg/dL (1.7-2.3) L 09/02/18 04:58 Total Bilirubin 0.70 mg/dL (0.1-1.2) 09/02/18 04:58 AST 64 units/L (5-40) H 09/02/18 04:58 ALT 22 units/L (7-56) 09/02/18 04:58 Alkaline Phosphatase 111 units/L (35-129) 09/02/18 04:58 Troponin T 0.317 ng/mL (0.00-0.029) H* D 08/18/18 13:39 C-Reactive Protein 5.00 mg/dL (0.00-1.30) H 08/25/18 05:20 Total Protein 6.5 g/dL (6.3-8.2) 09/02/18 04:58 Albumin 2.6 g/dL (3.9-5) L 09/02/18 04:58 Albumin/Globulin Ratio 0.7 % 09/02/18 04:58 Triglycerides 197 mg/dL (2-149) H 08/22/18 06:45 Cholesterol 87 mg/dL (50-199) 08/15/18 18:31 LDL Cholesterol Direct 4 mg/dL (50-130) L 08/15/18 18:31 HDL Cholesterol 10 mg/dL (40-59) L 08/15/18 18:31 Cholesterol/HDL Ratio 8.70 % 08/15/18 18:31 Serotonin Release Assay See scanned results 08/22/18 15:29 Total Cortisol 21.4 mcg/dL () 08/25/18 08:52 Urine Color Rosemarie (Yellow) 08/15/18 19:15 Urine Turbidity Cloudy (Clear) 08/15/18 19:15 Urine pH 5.0 (5.0-7.0) 08/15/18 19:15 Ur Specific [place] 1.025 (1.003-1.030) 08/15/18 19:15 Urine Protein 30 mg/dl mg/dL (Negative) 08/15/18 19:15 Urine Glucose (UA) Neg mg/dL (Negative) 08/15/18 19:15 Urine Ketones Neg mg/dL (Negative) 08/15/18 19:15 Urine Blood Mod (Negative) 08/15/18 19:15 Urine Nitrite Neg (Negative) 08/15/18 19:15 Urine Bilirubin Neg (Negative) 08/15/18 19:15 Urine Urobilinogen 2.0 mg/dL (<2.0) 08/15/18 19:15 Ur Leukocyte Esterase Mod (Negative) 08/15/18 19:15 Urine WBC (Auto) 17.0 /HPF (0.0-6.0) H 08/15/18 19:15 Urine RBC (Auto) 5.0 /HPF (0.0-6.0) 08/15/18 19:15 Urine WBC Clumps 2+ /HPF 08/15/18 19:15 Amorphous Crystals 1+ 08/15/18 19:15 Hyaline Casts 54 /LPF 08/15/18 19:15 Granular Casts 14 /LPF 08/15/18 19:15 Urine Mucus Few /HPF 08/15/18 19:15 Salicylates < 0.3 mg/dL (2.8-20.0) L 08/15/18 19:14 Urine Opiates Screen Presumptive positive 08/15/18 19:15 Urine Methadone Screen Presumptive negative 08/15/18 19:15 Acetaminophen < 5.0 ug/mL (10.0-30.0) L 08/15/18 19:14 Ur Barbiturates Screen Presumptive negative 08/15/18 19:15 Ur Phencyclidine Scrn Presumptive negative 08/15/18 19:15 Ur Amphetamines Screen Presumptive negative 08/15/18 19:15 U Benzodiazepines Scrn Presumptive negative 08/15/18 19:15 Urine Cocaine Screen Presumptive negative 08/15/18 19:15 U Marijuana (THC) Screen Presumptive negative 08/15/18 19:15 Drugs of Abuse Note Disclamer 08/15/18 19:15 Heparin-induced Plt Ab Negative (Negative) 08/22/18 15:29 UF Heparin High Dose 0 % Release 08/22/18 15:29 NAZIA UFH Low Dose 0.1 0 % Release 08/22/18 15:29 NAZIA UFH Low Dose 0.5 0 % Release 08/22/18 15:29 Lymph Enumerat CD4/CD8 1.98 (0.86-5.00) 08/19/18 14:32 % CD3 Cells 44 % (57-85) L 08/19/18 14:32 Absolute CD3 Count 1451 cells/uL (840-3060) 08/19/18 14:32 % CD4 Cells 30 % (30-61) 08/19/18 14:32 Absolute CD4 Count 1004 cells/uL (490-1740) 08/19/18 14:32 % CD8 Cells 15 % (12-42) 08/19/18 14:32 Absolute CD8 Count 508 cells/uL (180-1170) 08/19/18 14:32 % CD19 Cells 41 % (6-29) H 08/19/18 14:32 Absolute CD19 Count 1290 cells/uL (110-660) H 08/19/18 14:32 C. difficile Toxin A&B Negative (Negative) 08/19/18 14:00 HIV 1&2 Antibody Rapid Non react (Non React) 08/18/18 13:39 HIV P24 Antigen Non react (Non React) 08/18/18 13:39 Miscellaneous Test Flexitest 1 04/02/19 10:00 Blood Type O POSITIVE 08/25/18 08:52 Antibody Screen Negative 08/25/18 08:52 Crossmatch See Detail 08/25/18 08:52 Active Medications - Current Medications Current Medications: Generic Name Dose Route Start Last Admin Trade Name Freq PRN Reason Stop Dose Admin Acetaminophen 650 mg 08/15/18 22:12 08/24/18 21:30 Tylenol PO 650 mg Q4H PRN Administration Pain MILD(1-3)/Fever >100.5/MONDRAGON Albuterol 2.5 mg 08/17/18 17:00 Proventil IH Q3HRT PRN Shortness Of Breath Albuterol/Ipratropium 1 ampul 08/20/18 14:00 09/02/18 09:46 Duoneb *Not For Prn Use* IH Not Given Q6HRT LAMAR Lipase/Protease/Amylase 1 each 08/17/18 15:55 Pancreaze 10,500 Unit FEEDTUBE PRN PRN For Clogged Feeding Tube Arformoterol Tartrate 15 mcg 08/18/18 20:00 09/02/18 07:41 Brovana Nebu IH 15 mcg Q12HRT LAMAR Administration Budesonide 0.5 mg 08/18/18 20:00 09/02/18 07:40 Pulmicort IH 0.5 mg Q12HRT LAMAR Administration Carvedilol 3.125 mg 08/26/18 15:19 09/01/18 21:44 Coreg PO Not Given BID [facility] Duloxetine HCl 60 mg 08/16/18 10:00 08/30/18 14:35 Cymbalta PO Not Given QDAY [facility] Enoxaparin Sodium 100 mg 09/01/18 22:00 09/01/18 21:38 Lovenox 1 mg/kg (100 mg) 100 mg SUB-Q Administration Q12HR [facility] Famotidine 10 mg 08/31/18 22:00 09/01/18 21:44 Pepcid PO Not Given BID [facility] Fentanyl 50 mcg 09/02/18 10:17 Sublimaze IV Q10MIN PRN ANALGESIA Hydralazine HCl 10 mg 08/19/18 13:59 08/29/18 14:22 Apresoline IV 10 mg Q3H PRN Administration Hydralazine HCl 25 mg 09/01/18 14:00 09/01/18 21:44 Apresoline PO Not Given Q8HR [facility] Hydrophilic Ointment 1 applic 08/15/18 21:55 09/01/18 09:07 Vaseline Lip Therapy TP 1 applic Q2HR PRN Administration Dry Lips Dexmedetomidine HCl 400 mcg/ 104 mls @ 4.956 mls/hr 09/01/18 18:00 09/01/18 19:36 Sodium Chloride IV 0.2 mcg/kg/hr TITRATE LAMAR 4.956 mls/hr Administration Protocol 0.2 MCG/KG/HR Chlorothiazide Sodium 500 mg/ 50 mls @ 200 mls/hr 09/02/18 22:00 Sodium Chloride IV QDAY@2200 LAMAR Magnesium Sulfate 4 gm in 100 mls @ 25 mls/hr 09/02/18 09:00 Magnesium Sulfate 4gm/100ml IV 09/02/18 12:59 ONCE ONE Fentanyl Citrate 2,000 mcg in 100 mls @ 4.765 mls/hr 09/02/18 11:00 Fentanyl Drip Premix IV TITR [facility] Protocol 1 MCG/KG/HR Sodium Chloride 1,000 mls @ 999 mls/hr 09/02/18 10:17 Nacl 0.9% 1000 Ml IV 09/02/18 11:17 BOLUS ONE Propofol 1,000 mg in 100 mls @ 2.859 mls/hr 09/02/18 11:00 Diprivan 10 Mg/Ml IV TITR [facility] Protocol 5 MCG/KG/MIN Metoclopramide HCl 5 mg 08/15/18 22:50 Reglan IV Q6H PRN Nausea And Vomiting Morphine Sulfate 1 mg 08/29/18 15:29 09/01/18 16:16 Morphine IV 1 mg Q4H PRN Administration Pain, Moderate (4-6) Morphine Sulfate 30 mg 08/31/18 12:00 09/01/18 20:28 Morphine PO Not Given Q6HR [facility] Ondansetron HCl 4 mg 08/15/18 22:12 08/31/18 17:52 Zofran IV 4 mg Q8H PRN Administration Nausea And Vomiting Simple Syrup 15 ml 08/17/18 15:55 Simple Syrup FEEDTUBE PRN PRN Hypoglycemia Simple Syrup 30 ml 08/17/18 15:55 Simple Syrup FEEDTUBE PRN PRN Hypoglycemia Sodium Bicarbonate 325 mg 08/17/18 15:55 Sodium Bicarbonate FEEDTUBE PRN PRN For Clogged Feeding Tube Sodium Chloride 10 ml 08/16/18 10:00 09/01/18 09:35 Sodium Chloride Flush Syringe 10 Ml IV 10 ml BID LAMAR Administration Sodium Chloride 10 ml 08/15/18 22:12 08/25/18 21:35 Sodium Chloride Flush Syringe 10 Ml IV 10 ml PRN PRN Administration LINE FLUSH Nutrition/Malnutrition Assess - Dietary Evaluation Nutrition/Malnutrition Findings: Nutrition Notes Start: 08/17/18 13:57 Freq: Status: Active Protocol: Document 08/31/18 12:04 OL (Rec: 08/31/18 12:12 OL [id number]) Nutrition Notes Initial or Follow up Reassessment Current Diagnosis Acute Kidney Injury,COPD, Diabetes,Sepsis,Hypertension, Respiratory Failure, Hyperlipidemia Other Pertinent Diagnosis AMS, hypokalemia, NSTEMI, encephalopathy, pneu, hypernatermia, shock liver Current Diet Vital AF 1.2 at 60mL/hr Labs/Tests Na 151 BUn 45 Pertinent Medications Reviewed Height 5 ft 7 in Weight 95.3 kg [place] Body Weight (kg) 61.36 BMI 32.9 Subjective/Other Information TF not infusing at this time. Pt. extubated. Awaiting INSULATION NOZZLEMAN evalation. #1 Nutrition Diagnosis Inadequate oral intake Diagnosis Progress(for reassessment Continues documentation) Is patient on ventilator? No Is Patient Ambulatory and/or Out of Bed No REE-([facility]-confined to bed) 1824.132 Kcal/Kg value to use for calculation 14 Approximate Energy Requirements Using 1334 kcal/Kg Calculation Used for Recommendations Kcal/kg Additional Notes Protein needs: (2g/kg IBW) 122g/day Fluid needs: 1ml/kcal Nutrition Intervention Change Diet Order: Diet advancment when medically feasible Goal #1 Diet advancement when medically feasible Anticipated Discharge Needs: Unable to determine at this time Follow-Up By: 09/02/18 Additional Comments f/u: INSULATION NOZZLEMAN recs, diet advancement
--- NOTE | 2018-09-02 10:39 | XRay Report ---
PORTABLE CHEST INDICATION: Intubated, tube placement. COMPARISON: 8:19 AM earlier today. FINDINGS: Portable, frontal chest radiograph, 10:14 AM, 09/02/2018 demonstrates new endotracheal tube tip approximately 2.5 cm above the amando. A new esophagogastric tube may also extend below the GE junction, though its further distal course and tip not well seen. Stable lungs with diffuse bilateral pulmonary interstitial infiltrates/edema pattern. CONCLUSION: Interval uncomplicated intubation and incompletely visualized possible esophagogastric tube placement, as described. Otherwise stable. Thank you for the opportunity to participate in this patient's care.
[2018-09-02] MEDS ORDERED: PANCREAZE DR 10,500 UNIT FEEDTUBE PRN ×2 (10:40→11:24)
[2018-09-02] MEDS ORDERED: SIMPLE SYRUP FEEDTUBE PRN ×3 (10:40→11:24)
[2018-09-02] MEDS ORDERED: SODIUM BICARBONATE FEEDTUBE PRN ×2 (10:40→11:24)
[2018-09-02] MEDS: MORPHINE PO SCH ×2 (10:48→23:03)
[2018-09-02] MEDS: APRESOLINE PO SCH ×3 (10:50→21:49)
[2018-09-02] MEDS: SODIUM CHLORIDE FLUSH SYRINGE 10 ML IV SCH (10:50)
[2018-09-02] MEDS: COREG PO SCH ×2 (10:52→21:50)
[2018-09-02] MEDS: PEPCID PO SCH ×2 (10:53→21:49)
[2018-09-02] MEDS: fentaNYL DRIP Premix 2,000 MCG/100 ML BAG IV SCH ×3 (11:56→23:05)
--- NOTE | 2018-09-02 12:51 | XRay Report ---
ABDOMEN RADIOGRAPH INDICATION: Tube placement. COMPARISON: None similar. FINDINGS: Frontal abdominal radiograph demonstrates an esophagogastric tube tip overlying L2, likely in the proximal to mid stomach containing air. Nonobstructive remainder bowel gas pattern. Few right upper quadrant cholecystectomy clips. Advanced multilevel imaged lower thoracic and lumbar spine degenerative changes, including prominent osteophytes and disc degeneration with narrowing, vacuum phenomenon and adjacent sclerosis. Patient rotation to the right noted. EKG leads. CONCLUSION: Esophagogastric tube tip in the stomach with few other findings, as above. Thank you for the opportunity to participate in this patient's care.
--- NOTE | 2018-09-02 13:47 | Cat Scan Report ---
CT HEAD WITHOUT CONTRAST INDICATION: Altered mental status. COMPARISON: 08/16/2018. FINDINGS: Noncontrast head CT demonstrates stable ventricles and sulci with prominent extra-axial CSF spaces, greatest again bifrontal measuring approximately 0.8 cm AP as on axial image 40, series 2. Mild periventricular hypodensities. No definite acute infarct, hemorrhage, mass effect or midline shift. Grossly normal imaged posterior fossa with preserved basilar cisterns. Unremarkable eye globes. Patient remains intubated with moderate to severe right maxillary sinus opacification/air-fluid level. Mild bilateral ethmoid sinusitis anteriorly may be slightly improved. Clear remainder imaged paranasal sinuses. Increased, now moderate to severe opacification of bilateral mastoid air cells. Normal calvarium and scalp. Edentulous jaw. CONCLUSION: 1. No acute intracranial CT abnormality with atrophy again noted, as described. 2. Patient remains intubated with worse, extensive bilateral mastoiditis and stable moderate to severe right maxillary sinusitis, as detailed above. Please correlate. Thank you for the opportunity to participate in this patient's care.
--- NOTE | 2018-09-02 14:06 | Progress Note ---
Assessment and Plan Cultures: 08/15/2018 blood culture: Camryn glabrata 1 of 4 08/15/2018 sputum culture: MSSA and Escherichia coli, wade susceptible 08/18/2018 blood culture: no growth 08/18/2018 urine culture: neg 08/22/2018 blood culture: no growth 08/25/2018 blood culture: no growth A/P: 68-year-old female with COPD, arthritis, history of multiple spinal surgeries was brought to the emergency room on 08/15/2018 with altered mental status: 1) Sepsis with septic shock: resolved. 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 Patient without any history of indwelling PICC line, TPN or immunocompromised status. reported severe explosive diarrhea, N/V before admission after taken 4 days of amoxicillin for dental implant on 07/29/2018 and had a EGD / colonoscopy on 08/08/[address] [facility] [address] Alcantara. I reviewed report - mild chronic gastritis, focal intestinal metaplasia, squamocolumnar mucosa with mild reflux-type changes, and tubular adenoma. -s/p fluconazole 800 mg loading dose then micafungin, s/p amphotericin D6 on 08/26 -serum Crypto negative. -08/15/2018 blood culture: Camryn glabrata -08/18/2018 blood culture: no growth today -CTA chest showed limited study due to respiratory motion artifact. No evidence of pulmonary embolism. Abnormal bilateral lung consolidation which may represent pulmonary edema or pneumonia. Mild cardiomegaly. Indeterminant mediastinal lymph nodes. -CT abdomen showed extensive bilateral lower lobe pulmonary infiltrates, rectal tube and Dodge catheter noted. NG tube at gastric antrum. Left hip prosthesis Extensive degenerative changes noted lumbar spine -TTE EF 25-30% no vegetations -HIV neg/ CD4 1004 -reviewed CT chest abd done 01/05/2019 showed cholecystectomy, mild fatty liver, postoperative changes of lumbar laminectomy with non specific fluid, 9 mm LLL pulmonary nodule which was compared to previous CT and was stable. -CRP 10-->5 3) Acute renal failure: On admission: Nephrology following. 4) Acute respiratory failure: Back on the vent. Recently completed pneumonia treatment. WBC up and low grade fever. Underwent bronch + BAL on 09/02/2018. follow up cultures. Restart IV abx. 5) Right maxillary sinusitis: received empiric abx. 6) Acute encephalopathy: Likely multifactorial. CT head unremarkable for acute intracranial process. Improving. 7) Cardiomyopathy, LVEF 25-30% this admission. 8) H/O left hip prosthesis ? XR no effusion. CT no enhancement 9) DVT: on anticoagulation. Recs: extend micafungin given decline follow up BAL cultures restart abx: IV Cefepimei and Vancomycin MD [facility] C: [phone] O: [phone] F: [phone] Subjective Date of service: 09/02/18 Principal diagnosis: Acute hypoxemic hypercapnic Resp failure; AE-COPD; Acute kidney injury Interval history: Got intubated again. WBC increased. Low grade fever. Underwent bronch + BAL. Objective - Exam Narrative Exam: Physical Exam: Constitutional: sedated, intubated Head, Ears, Nose: Normocephalic, atraumatic. External ears, nose normal Eyes: Conjunctivae/corneas clear. No icterus. No ptosis. Neck: Supple, no meningeal signs Oral: intubated Cardiovascular: S1, S2 normal. Respiratory: coarse breath sounds b/l GI: Soft, non-tender; bowel sounds normal. No peritoneal signs Musculoskeletal: No pedal edema, no cyanosis. Skin: No rash or abscess Hem/Lymphatic: No palpable cervical or supraclavicular nodes. No lymphangitis Psych: no agitation Neurological: sedated, intubated - Constitutional Vitals: Vital Signs Temp Pulse Resp BP Pulse Ox 99.7 F H 91 H 41 H 148/83 90 09/02/18 12:00 09/02/18 12:01 09/02/18 12:01 09/02/18 12:01 09/02/18 12:01 Temperature -Last 24 Hours Temperature 99.7 F Temperature 99.0 F Temperature 98.9 F Temperature 100.4 F Temperature 98.5 F Temperature 98.8 F - Labs CBC & Chem 7: 09/02/18 04:58 09/02/18 04:58 Labs: Abnormal lab results 08/30/18 08/30/18 09/01/18 Range/Units 09:54 09:57 17:52 WBC (4.5-11.0) K/mm3 RBC (3.65-5.03) M/mm3 Hgb (10.1-14.3) gm/dl Hct (30.3-42.9) % RDW (13.2-15.2) % Seg Neuts % (Manual) (40.0-70.0) % Lymphocytes % (Manual) (13.4-35.0) % Seg Neutrophils # Man (1.8-7.7) K/mm3 Lymphocytes # (Manual) (1.2-5.4) K/mm3 POC ABG pH 7.553 H (7.35-7.45) POC ABG pCO2 (35-45) POC ABG pO2 74 L (80-105) Sodium (137-145) mmol/L Potassium (3.6-5.0) mmol/L Chloride (98-107) mmol/L BUN (7-17) mg/dL Creatinine (0.7-1.2) mg/dL Glucose (65-100) mg/dL POC Glucose (70-105) Magnesium (1.7-2.3) mg/dL AST (5-40) units/L Albumin (3.9-5) g/dL Miscellaneous Test Flexitest 1 H Flexitest 1 H 09/01/18 09/02/18 09/02/18 Range/Units 17:52 04:13 04:58 WBC 16.4 H (4.5-11.0) K/mm3 RBC 2.64 L (3.65-5.03) M/mm3 Hgb 7.9 L (10.1-14.3) gm/dl Hct 24.3 L (30.3-42.9) % RDW 20.8 H (13.2-15.2) % Seg Neuts % (Manual) 96.0 H (40.0-70.0) % Lymphocytes % (Manual) 1.0 L (13.4-35.0) % Seg Neutrophils # Man 15.7 H (1.8-7.7) K/mm3 Lymphocytes # (Manual) 0.2 L (1.2-5.4) K/mm3 POC ABG pH 7.488 H (7.35-7.45) POC ABG pCO2 (35-45) POC ABG pO2 63 L (80-105) Sodium (137-145) mmol/L Potassium (3.6-5.0) mmol/L Chloride (98-107) mmol/L BUN (7-17) mg/dL Creatinine (0.7-1.2) mg/dL Glucose (65-100) mg/dL POC Glucose 143 H (70-105) Magnesium (1.7-2.3) mg/dL AST (5-40) units/L Albumin (3.9-5) g/dL Miscellaneous Test 09/02/18 09/02/18 Range/Units 04:58 11:03 WBC (4.5-11.0) K/mm3 RBC (3.65-5.03) M/mm3 Hgb (10.1-14.3) gm/dl Hct (30.3-42.9) % RDW (13.2-15.2) % Seg Neuts % (Manual) (40.0-70.0) % Lymphocytes % (Manual) (13.4-35.0) % Seg Neutrophils # Man (1.8-7.7) K/mm3 Lymphocytes # (Manual) (1.2-5.4) K/mm3 POC ABG pH 7.344 L (7.35-7.45) POC ABG pCO2 52.8 H (35-45) POC ABG pO2 (80-105) Sodium 158 H (137-145) mmol/L Potassium 2.9 L* (3.6-5.0) mmol/L Chloride 115.7 H (98-107) mmol/L BUN 27 H (7-17) mg/dL Creatinine 0.6 L (0.7-1.2) mg/dL Glucose 128 H (65-100) mg/dL POC Glucose (70-105) Magnesium 1.60 L (1.7-2.3) mg/dL AST 64 H (5-40) units/L Albumin 2.6 L (3.9-5) g/dL Miscellaneous Test - Imaging and cardiology Chest x-ray: report reviewed, image reviewed (bilateral reticulonodular pattern, ?worse)
[2018-09-02] MEDS ORDERED: VANCOMYCIN PHARMACY TO DOSE IV SCH (15:00)
[2018-09-02] MEDS ORDERED: VANCOMYCIN 2,000 MG in NACL 0.9% 500 ML 500 ML IV ONE (16:00)
[2018-09-02] MEDS: KCL 20 MEQ in D5NS 0.2% 1,000 ML IV SCH (17:30)
[2018-09-02] MEDS: DIPRIVAN 10 MG/ML 1,000 MG/100 ML BOTTLE IV SCH ×2 (17:31→21:12)
[2018-09-02] MEDS: MYCAMINE 100 MG in NACL 0.9% 100 ML IV SCH (17:36)
[2018-09-02] MEDS: MAXIPIME/NS 2 GM/100 ML 2 GM/100 ML BAG IV SCH ×2 (17:37→21:50)
[2018-09-02] MEDS: DIURIL 500 MG in NACL 0.9% 50 ML IV SCH (21:55)
[2018-09-03] MEDS: DIPRIVAN 10 MG/ML 1,000 MG/100 ML BOTTLE IV SCH ×5 (01:20→10:47)
[2018-09-03] MEDS: MORPHINE PO SCH ×6 (01:22→19:16)
[2018-09-03] MEDS: DUONEB *Not for PRN Use IH SCH ×4 (01:48→19:33)
[2018-09-03] MEDS: VANCOMYCIN 1,500 MG in NACL 0.9% 500 ML 500 ML IV SCH ×2 (04:12→15:44)
[2018-09-03] MEDS: fentaNYL DRIP Premix 2,000 MCG/100 ML BAG IV SCH ×3 (05:00→19:15)
[2018-09-03 05:02] LABS: Hematocrit 20.9 % (30.3-42.9); Hemoglobin 6.7 gm/dl (10.1-14.3); Mean Corpuscular HGB Conc 32 % (30-34); Mean Corpuscular Volume 95 fl (79-97); Platelet Count 248 K/mm3 (140-440)
[2018-09-03] MEDS: APRESOLINE PO SCH ×3 (05:03→22:28)
[2018-09-03 05:07] LABS: Red Cell Distribution Width 21.1 % (13.2-15.2)
[2018-09-03 05:24] LABS: Alanine Aminotransferase 15 units/L (7-56); Albumin 2.4 g/dL (3.9-5); BUN/Creatinine Ratio 42; Blood Urea Nitrogen 25 mg/dL (7-17); Calcium 7.9 mg/dL (8.4-10.2); Hemolysis Index 2
[2018-09-03 06:09] LABS: Band Neutrophils # (Manual) 0.1 K/mm3; Basophils % (Manual) 0 % (0.0-1.8); Eosinophils % (Manual) 0 % (0.0-4.3); Myelocytes # (Manual) 0.1 K/mm3; Total Cells Counted 100
[2018-09-03 06:11] LABS: Anisocytosis 1+
[2018-09-03 06:12] LABS: Hypochromasia 1+; Platelet Estimate Consistent w Auto; Poikilocytosis 1+
--- NOTE | 2018-09-03 07:36 | Progress Note ---
Assessment and Plan 1. Acute kidney injury: Vasomotor CHANDANA, likely ATN. Creatinine level is better. Monitor renal function. Avoid nephrotoxic agents. Meds dosage based on GFR. 2. FEN: Hypernatremia, Diuril, hypotonic IV fluids and water flushes. Hypokalemia, replete K. Metabolic acidosis, improved. 3. Bladder retention: S/p manrique catheter. 4. Acute encephalopathy. 5. Respiratory failure: On vent. 6. Sepsis: Followed by ID. 7. Dilated cardiomyopathy with systolic LV dysfunction. 8. Anemia: PRBC. 9. DVT. Subjective Date of service: 09/03/18 Principal diagnosis: Acute hypoxemic hypercapnic Resp failure; AE-COPD; Acute kidney injury Interval history: Patient was seen and examined at the bedside. Objective - Vital Signs Vital signs: Vital Signs - 12hr 09/02/18 09/02/18 09/02/18 19:41 19:45 19:56 Temperature Pulse Rate 69 Pulse Rate [ 68 71 Anterior Bilateral Throughout] Pulse Rate [ Apical] Respiratory 26 H Rate Respiratory 31 H 31 H Rate [Anterior Bilateral Throughout] Blood Pressure 112/48 O2 Sat by Pulse 98 Oximetry 09/02/18 09/02/18 09/02/18 20:00 20:15 20:30 Temperature 98 F Pulse Rate 70 67 64 Pulse Rate [ Anterior Bilateral Throughout] Pulse Rate [ 68 Apical] Respiratory 21 22 21 Rate Respiratory Rate [Anterior Bilateral Throughout] Blood Pressure 112/48 114/50 113/49 O2 Sat by Pulse 97 98 100 Oximetry 09/02/18 09/02/18 09/02/18 20:45 21:00 21:14 Temperature Pulse Rate 64 65 Pulse Rate [ Anterior Bilateral Throughout] Pulse Rate [ Apical] Respiratory 19 21 16 Rate Respiratory Rate [Anterior Bilateral Throughout] Blood Pressure 105/50 105/53 O2 Sat by Pulse 100 100 Oximetry 09/02/18 09/02/18 09/02/18 21:15 21:30 21:45 Temperature Pulse Rate 65 65 63 Pulse Rate [ Anterior Bilateral Throughout] Pulse Rate [ Apical] Respiratory 19 21 18 Rate Respiratory Rate [Anterior Bilateral Throughout] Blood Pressure 111/51 106/56 108/50 O2 Sat by Pulse 100 100 99 Oximetry 09/02/18 09/02/18 09/02/18 21:49 21:50 22:00 Temperature Pulse Rate 64 64 66 Pulse Rate [ Anterior Bilateral Throughout] Pulse Rate [ Apical] Respiratory 22 Rate Respiratory Rate [Anterior Bilateral Throughout] Blood Pressure 108/50 108/50 106/57 O2 Sat by Pulse 99 Oximetry 09/02/18 09/02/18 09/02/18 22:15 22:16 22:30 Temperature Pulse Rate 67 66 64 Pulse Rate [ Anterior Bilateral Throughout] Pulse Rate [ Apical] Respiratory 21 24 20 Rate Respiratory Rate [Anterior Bilateral Throughout] Blood Pressure 91/43 91/43 97/41 O2 Sat by Pulse 97 96 98 Oximetry 09/02/18 09/02/18 09/02/18 22:45 23:00 23:15 Temperature Pulse Rate 65 65 64 Pulse Rate [ Anterior Bilateral Throughout] Pulse Rate [ Apical] Respiratory 16 17 18 Rate Respiratory Rate [Anterior Bilateral Throughout] Blood Pressure 99/43 101/42 95/38 O2 Sat by Pulse 98 98 99 Oximetry 09/02/18 09/02/18 09/03/18 23:30 23:45 00:00 Temperature 97.9 F Pulse Rate 62 62 63 Pulse Rate [ Anterior Bilateral Throughout] Pulse Rate [ 69 Apical] Respiratory 16 14 14 Rate Respiratory Rate [Anterior Bilateral Throughout] Blood Pressure 90/44 94/42 96/42 O2 Sat by Pulse 99 100 100 Oximetry 09/03/18 09/03/18 09/03/18 00:15 00:30 00:45 Temperature Pulse Rate 64 67 68 Pulse Rate [ Anterior Bilateral Throughout] Pulse Rate [ Apical] Respiratory 12 18 19 Rate Respiratory Rate [Anterior Bilateral Throughout] Blood Pressure 92/41 87/56 126/48 O2 Sat by Pulse 100 91 94 Oximetry 09/03/18 09/03/18 09/03/18 01:00 01:15 01:30 Temperature Pulse Rate 71 68 71 Pulse Rate [ Anterior Bilateral Throughout] Pulse Rate [ Apical] Respiratory 23 16 22 Rate Respiratory Rate [Anterior Bilateral Throughout] Blood Pressure 126/48 107/53 109/57 O2 Sat by Pulse 85 97 87 Oximetry 09/03/18 09/03/18 09/03/18 01:45 01:48 02:00 Temperature Pulse Rate 66 69 Pulse Rate [ 71 Anterior Bilateral Throughout] Pulse Rate [ Apical] Respiratory 14 19 Rate Respiratory 30 H Rate [Anterior Bilateral Throughout] Blood Pressure 102/50 113/54 O2 Sat by Pulse 96 97 Oximetry 09/03/18 09/03/18 09/03/18 02:04 02:15 02:30 Temperature Pulse Rate 81 75 Pulse Rate [ 73 Anterior Bilateral Throughout] Pulse Rate [ Apical] Respiratory 24 25 H Rate Respiratory 30 H Rate [Anterior Bilateral Throughout] Blood Pressure 126/63 111/46 O2 Sat by Pulse 87 Oximetry 09/03/18 09/03/18 09/03/18 02:45 03:00 03:15 Temperature Pulse Rate 83 85 77 Pulse Rate [ Anterior Bilateral Throughout] Pulse Rate [ Apical] Respiratory 31 H 33 H 28 H Rate Respiratory Rate [Anterior Bilateral Throughout] Blood Pressure 120/48 120/57 108/48 O2 Sat by Pulse 85 85 86 Oximetry 09/03/18 09/03/18 09/03/18 03:30 03:36 03:46 Temperature Pulse Rate 80 75 89 Pulse Rate [ Anterior Bilateral Throughout] Pulse Rate [ Apical] Respiratory 26 H 15 Rate Respiratory Rate [Anterior Bilateral Throughout] Blood Pressure 110/51 102/43 124/64 O2 Sat by Pulse 86 88 89 Oximetry 09/03/18 09/03/18 09/03/18 04:00 04:15 04:30 Temperature 98.8 F Pulse Rate 84 85 80 Pulse Rate [ Anterior Bilateral Throughout] Pulse Rate [ 69 Apical] Respiratory 36 H 34 H 28 H Rate Respiratory Rate [Anterior Bilateral Throughout] Blood Pressure 120/59 128/61 118/56 O2 Sat by Pulse 83 L 89 Oximetry 09/03/18 09/03/18 09/03/18 04:45 05:00 05:03 Temperature Pulse Rate 76 75 66 Pulse Rate [ Anterior Bilateral Throughout] Pulse Rate [ Apical] Respiratory 22 22 Rate Respiratory Rate [Anterior Bilateral Throughout] Blood Pressure 102/43 96/42 115/62 O2 Sat by Pulse 100 100 Oximetry 09/03/18 09/03/18 09/03/18 05:16 05:30 05:45 Temperature Pulse Rate 71 70 69 Pulse Rate [ Anterior Bilateral Throughout] Pulse Rate [ Apical] Respiratory 22 19 15 Rate Respiratory Rate [Anterior Bilateral Throughout] Blood Pressure 101/38 77/35 87/39 O2 Sat by Pulse 100 100 100 Oximetry 09/03/18 09/03/18 06:00 06:15 Temperature Pulse Rate 69 67 Pulse Rate [ Anterior Bilateral Throughout] Pulse Rate [ Apical] Respiratory 16 14 Rate Respiratory Rate [Anterior Bilateral Throughout] Blood Pressure 108/43 110/45 O2 Sat by Pulse 99 Oximetry - General Appearance General appearance: well-developed, appears stated age, sedated on ventilator, intubated EENT: ATNC, PERRL Neck: supple Respiratory: Present: Clear to Ascultation Cardiology: regular, S1S2, no murmurs Gastrointestinal: normoactive bowel sounds, other (manrique catheter) Integumentary: warm and dry Neurologic: obtunded Musculoskeletal: other (b/l LE edema noted) - Lab 09/04/18 06:30 09/04/18 06:30 Most recent lab results Calcium 7.9 mg/dL (8.4-10.2) L 09/03/18 04:25 Phosphorus 3.10 mg/dL (2.5-4.5) 09/02/18 04:58 Magnesium 1.70 mg/dL (1.7-2.3) 09/03/18 04:25 Medications & Allergies - Medications Allergies/Adverse Reactions: Allergies No Known Allergies Allergy (Unverified 08/15/18 16:49) Home Medications: Home Medications Medication Instructions Recorded Confirmed Last Taken Type Carvedilol 6.25 mg PO BID 08/15/18 08/15/18 Unknown History DULoxetine 60 mg PO QDAY 08/15/18 08/15/18 Unknown History Gabapentin 600 mg PO Q6HR PRN 08/15/18 08/15/18 Unknown History Methylphenidate 5 mg PO TID 08/15/18 08/15/18 Unknown History Morphabond ER 60 mg PO Q12HR 08/15/18 08/15/18 Unknown History Pravastatin Sodium 10 mg PO QDAY 08/15/18 08/15/18 Unknown History Tizanidine HCl 4 mg PO Q12HR 08/15/18 08/15/18 Unknown History oxyCODONE /ACETAMINOPHEN 7.5 - 325 mg PO Q8HR 08/15/18 08/15/18 Unknown History ALBUTEROL Inhaler(NF) 90 mcg IH TID 08/29/18 08/29/18 Unknown History Omeprazole-Bicarb 40-1,100 Cap 40 mg PO DAILY 08/29/18 08/29/18 Unknown History Active Medications: Generic Name Dose Route Start Last Admin Trade Name Freq PRN Reason Stop Dose Admin Acetaminophen 650 mg 08/15/18 22:12 08/24/18 21:30 Tylenol PO 650 mg Q4H PRN Administration Pain MILD(1-3)/Fever >100.5/MONDRAGON Albuterol 2.5 mg 08/17/18 17:00 Proventil IH Q3HRT PRN Shortness Of Breath Albuterol/Ipratropium 1 ampul 08/20/18 14:00 09/03/18 01:48 Duoneb *Not For Prn Use* IH 1 ampul Q6HRT LAMAR Administration Lipase/Protease/Amylase 1 each 09/02/18 10:40 Pancresam Elizabeth 10,500 Unit FEEDTUBE PRN PRN For Clogged Feeding Tube Arformoterol Tartrate 15 mcg 08/18/18 20:00 09/02/18 19:32 Brovana Nebu IH 15 mcg Q12HRT LAMAR Administration Budesonide 0.5 mg 08/18/18 20:00 09/02/18 19:32 Pulmicort IH 0.5 mg Q12HRT LAMAR Administration Carvedilol 3.125 mg 08/26/18 15:19 09/02/18 21:50 Coreg PO 3.125 mg BID LAMAR Administration Duloxetine HCl 60 mg 08/16/18 10:00 08/30/18 14:35 Cymbalta PO Not Given QDAY LAMAR Enoxaparin Sodium 100 mg 09/01/18 22:00 09/02/18 21:52 Lovenox 1 mg/kg (100 mg) 100 mg SUB-Q Administration Q12HR LAMAR Famotidine 10 mg 08/31/18 22:00 09/02/18 21:49 Pepcid PO 10 mg BID LAMAR Administration Fentanyl 50 mcg 09/02/18 10:17 Sublimaze IV Q10MIN PRN ANALGESIA Hydralazine HCl 10 mg 08/19/18 13:59 08/29/18 14:22 Apresoline IV 10 mg Q3H PRN Administration Hydralazine HCl 25 mg 09/01/18 14:00 09/03/18 05:03 Apresoline PO 25 mg Q8HR LAMAR Administration Hydrophilic Ointment 1 applic 08/15/18 21:55 09/01/18 09:07 Vaseline Lip Therapy TP 1 applic Q2HR PRN Administration Dry Lips Dexmedetomidine HCl 400 mcg/ 104 mls @ 4.956 mls/hr 09/01/18 18:00 09/02/18 09:00 Sodium Chloride IV 0 mcg/kg/hr TITRATE LAMAR 0 mls/hr Titration Protocol 0.2 MCG/KG/HR Chlorothiazide Sodium 500 mg/ 50 mls @ 200 mls/hr 09/02/18 22:00 09/02/18 21:55 Sodium Chloride IV 200 mls/hr QDAY@2200 LAMAR Administration Fentanyl Citrate 2,000 mcg in 100 mls @ 4.765 mls/hr 09/02/18 11:00 09/03/18 06:37 Fentanyl Drip Premix IV 3 mcg/kg/hr TITR LAMAR 14.295 mls/hr Titration Protocol 1 MCG/KG/HR Propofol 1,000 mg in 100 mls @ 2.859 mls/hr 09/02/18 11:00 09/03/18 04:57 Diprivan 10 Mg/Ml IV 30 mcg/kg/min TITR LAMAR 17.154 mls/hr Administration Protocol 5 MCG/KG/MIN Potassium Chloride 20 meq/ 1,010 mls @ 75 mls/hr 09/02/18 10:45 09/02/18 17:30 Dextrose/Sodium Chloride IV 75 mls/hr DIRECT LAMAR Administration Cefepime HCl 2 gm in 100 mls @ 200 mls/hr 09/02/18 15:00 09/02/18 21:50 Maxipime/Ns 2 Gm/100 Ml IV 200 mls/hr Q12HR LAMAR Administration Protocol Micafungin Sodium 100 mg/ 100 mls @ 100 mls/hr 09/02/18 15:00 09/02/18 17:36 Sodium Chloride IV 100 mls/hr QDAY LAMAR Administration Protocol Vancomycin HCl 1,500 mg/ 530 mls @ 333.333 mls/hr 09/03/18 04:00 09/03/18 04:12 Sodium Chloride IV 333.333 mls/hr Q12H LAMAR Administration Metoclopramide HCl 5 mg 08/15/18 22:50 Reglan IV Q6H PRN Nausea And Vomiting Morphine Sulfate 1 mg 08/29/18 15:29 09/01/18 16:16 Morphine IV 1 mg Q4H PRN Administration Pain, Moderate (4-6) Morphine Sulfate 30 mg 08/31/18 12:00 09/03/18 05:30 Morphine PO 30 mg Q6HR LAMAR Administration Ondansetron HCl 4 mg 08/15/18 22:12 08/31/18 17:52 Zofran IV 4 mg Q8H PRN Administration Nausea And Vomiting Simple Syrup 15 ml 09/02/18 11:24 Simple Syrup FEEDTUBE PRN PRN Hypoglycemia Simple Syrup 30 ml 09/02/18 11:24 Simple Syrup FEEDTUBE PRN PRN Hypoglycemia Sodium Bicarbonate 325 mg 09/02/18 10:40 Sodium Bicarbonate FEEDTUBE PRN PRN For Clogged Feeding Tube Sodium Chloride 10 ml 08/15/18 22:12 08/25/18 21:35 Sodium Chloride Flush Syringe 10 Ml IV 10 ml PRN PRN Administration LINE FLUSH
[2018-09-03] MEDS ORDERED: POTASSIUM CHLORIDE FEEDTUBE ONE (07:54)
--- NOTE | 2018-09-03 08:57 | Progress Note ---
Assessment and Plan 1. New onset cardiomyopathy LV ejection fraction 25-30% 2. Severe polymicrobial sepsis/septic shock 3. Respiratory failure 4. Altered mental status probably secondary to metabolic encephalopathy Plan. Continue supportive cardiac management. Subjective Date of service: 09/03/18 Principal diagnosis: Acute hypoxemic hypercapnic Resp failure; AE-COPD; Acute kidney injury Interval history: Unresponsive intubated and sedated Objective Vital Signs Temp Pulse Pulse Pulse Resp Resp BP 09/03/18 08:00 99.1 F 09/03/18 06:15 67 14 110/45 09/03/18 06:00 69 16 108/43 09/03/18 05:45 69 15 87/39 09/03/18 05:30 70 19 77/35 09/03/18 05:16 71 22 101/38 09/03/18 05:03 66 115/62 09/03/18 05:00 75 22 96/42 09/03/18 04:45 76 22 102/43 09/03/18 04:30 80 28 H 118/56 09/03/18 04:15 85 34 H 128/61 09/03/18 04:00 98.8 F 84 69 36 H 120/59 09/03/18 03:46 89 15 124/64 09/03/18 03:36 75 102/43 09/03/18 03:30 80 26 H 110/51 09/03/18 03:15 77 28 H 108/48 09/03/18 03:00 85 33 H 120/57 09/03/18 02:45 83 31 H 120/48 09/03/18 02:30 75 25 H 111/46 09/03/18 02:15 81 24 126/63 09/03/18 02:04 73 30 H 09/03/18 02:00 69 19 113/54 09/03/18 01:48 71 30 H 09/03/18 01:45 66 14 102/50 09/03/18 01:30 71 22 109/57 09/03/18 01:15 68 16 107/53 09/03/18 01:00 71 23 126/48 09/03/18 00:45 68 19 126/48 09/03/18 00:30 67 18 87/56 09/03/18 00:15 64 12 92/41 09/03/18 00:00 97.9 F 63 69 14 96/42 04/05/19 23:45 62 14 94/42 04/05/19 23:30 62 16 90/44 04/05/19 23:15 64 18 95/38 /05/ 23:00 65 17 101/42 /05/19 22:45 65 16 99/43 05 22:30 64 20 97/41 /05/19 22:16 66 24 91/43 /05/19 22:15 67 21 91/43 /05/19 22:00 66 22 106/57 /05 21:50 64 108/50 /05 21:49 64 108/50 /05 21:45 63 18 108/50 /05/ 21:30 65 21 106/56 05 21:15 65 19 111/51 05/ 21:14 16 09/02/18 21:00 65 21 105/53 05 20:45 64 19 105/50 05 20:30 64 21 113/49 05 20:15 67 22 114/50 05 20:00 98 F 70 68 21 112/48 05 19:56 71 31 H 05 19:45 69 26 H 112/48 05 19:41 68 31 H 05 19:32 68 105/54 05 19:30 67 22 105/54 /05/ 19:16 70 21 111/48 05 19:00 69 20 150/48 05 18:46 78 27 H 141/58 /05/19 18:30 80 33 H 135/64 /05/19 18:16 80 23 144/57 /0519 18:00 83 29 H 132/55 /05/19 17:46 80 24 138/60 /05/19 17:30 87 13 104/43 04/05/19 17:15 72 26 H 94/43 /05/19 17:01 72 25 H 104/43 /05/19 16:45 78 27 H 126/100 /05/19 16:31 81 30 H 126/100 /05/19 16:15 82 28 H 104/51 04/05/19 16:00 98.6 F 72 82 24 119/53 09/02/18 15:45 70 26 H 104/51 09/02/18 15:30 73 70 27 H 24 110/50 09/02/18 15:15 73 28 H 137/69 09/02/18 15:01 77 27 H 136/50 09/02/18 14:45 86 12 134/72 09/02/18 14:31 82 31 H 134/72 09/02/18 14:15 72 28 H 76/34 09/02/18 14:00 70 72 31 H 24 69/28 09/02/18 13:45 78 28 H 95/46 09/02/18 13:37 77 95/46 09/02/18 13:00 78 29 H 95/46 09/02/18 12:45 78 35 H 79/38 09/02/18 12:31 86 38 H 136/55 09/02/18 12:15 90 39 H 143/71 09/02/18 12:01 91 H 41 H 148/83 09/02/18 12:00 99.7 F H 88 41 H 09/02/18 11:45 92 H 41 H 154/102 09/02/18 11:30 80 35 H 110/74 09/02/18 11:15 82 33 H 115/53 09/02/18 11:03 85 9 L 111/56 09/02/18 11:00 83 33 H 111/56 09/02/18 10:45 85 35 H 88/55 09/02/18 10:31 87 32 H 98/52 09/02/18 10:15 94 H 27 H 127/61 09/02/18 10:01 95 H 35 H 124/60 09/02/18 09:47 95 H 124/60 09/02/18 09:45 97 H 38 H 120/61 09/02/18 09:30 97 H 28 H 121/58 09/02/18 09:20 09/02/18 09:15 93 H 24 111/42 09/02/18 09:01 89 23 113/58 Pulse Ox 09/03/18 08:00 09/03/18 06:15 99 09/03/18 06:00 09/03/18 05:45 100 09/03/18 05:30 100 09/03/18 05:16 100 09/03/18 05:03 09/03/18 05:00 100 09/03/18 04:45 100 09/03/18 04:30 89 09/03/18 04:15 09/03/18 04:00 83 L 09/03/18 03:46 89 09/03/18 03:36 88 09/03/18 03:30 86 09/03/18 03:15 86 09/03/18 03:00 85 09/03/18 02:45 85 09/03/18 02:30 87 09/03/18 02:15 09/03/18 02:04 09/03/18 02:00 97 09/03/18 01:48 09/03/18 01:45 96 09/03/18 01:30 87 09/03/18 01:15 97 09/03/18 01:00 85 09/03/18 00:45 94 09/03/18 00:30 91 09/03/18 00:15 100 09/03/18 00:00 100 09/02/18 23:45 100 09/02/18 23:30 99 09/02/18 23:15 99 09/02/18 23:00 98 09/02/18 22:45 98 09/02/18 22:30 98 09/02/18 22:16 96 09/02/18 22:15 97 09/02/18 22:00 99 09/02/18 21:50 09/02/18 21:49 09/02/18 21:45 99 09/02/18 21:30 100 09/02/18 21:15 100 09/02/18 21:14 09/02/18 21:00 100 09/02/18 20:45 100 09/02/18 20:30 100 09/02/18 20:15 98 09/02/18 20:00 97 09/02/18 19:56 09/02/18 19:45 98 09/02/18 19:41 09/02/18 19:32 100 09/02/18 19:30 100 09/02/18 19:16 99 09/02/18 19:00 99 09/02/18 18:46 87 09/02/18 18:30 89 09/02/18 18:16 90 09/02/18 18:00 93 09/02/18 17:46 94 09/02/18 17:30 97 09/02/18 17:15 100 09/02/18 17:01 99 09/02/18 16:45 93 09/02/18 16:31 94 09/02/18 16:15 94 09/02/18 16:00 99 09/02/18 15:45 100 09/02/18 15:30 99 09/02/18 15:15 99 09/02/18 15:01 93 09/02/18 14:45 98 09/02/18 14:31 99 09/02/18 14:15 100 09/02/18 14:00 100 09/02/18 13:45 94 09/02/18 13:37 98 09/02/18 13:00 98 09/02/18 12:45 98 09/02/18 12:31 95 09/02/18 12:15 92 09/02/18 12:01 90 09/02/18 12:00 100 09/02/18 11:45 83 L 09/02/18 11:30 98 09/02/18 11:15 99 09/02/18 11:03 98 09/02/18 11:00 99 09/02/18 10:45 100 09/02/18 10:31 98 09/02/18 10:15 94 09/02/18 10:01 93 09/02/18 09:47 93 09/02/18 09:45 100 09/02/18 09:30 100 09/02/18 09:20 91 09/02/18 09:15 100 09/02/18 09:01 94 - Physical Examination General: No Apparent Distress HEENT: Positive: PERRL, Other (ET tube in place) Neck: Positive: neck supple, trachea midline Cardiac: Positive: Reg Rate and Rhythm, S1/S2, S3, PMI, Laterally Displaced Lungs: Positive: Rhonchi. Negative: Decreased Breath Sounds, Wheezes Neuro: Positive: Weakness Abdomen: Positive: Unremarkable, Soft, Active Bowel Sounds Skin: Positive: Clear Extremities: Absent: edema - Labs and Meds Cardiac Enzymes 09/03/18 Range/Units 04:25 AST 33 (5-40) units/L CBC 09/03/18 Range/Units 04:25 WBC 9.7 (4.5-11.0) K/mm3 RBC 2.20 L (3.65-5.03) M/mm3 Hgb 6.7 L (10.1-14.3) gm/dl Hct 20.9 L (30.3-42.9) % Plt Count 248 (140-440) K/mm3 Comprehensive Metabolic Panel 09/03/18 Range/Units 04:25 Sodium 158 H (137-145) mmol/L Potassium 3.1 L (3.6-5.0) mmol/L Chloride 120.4 H (98-107) mmol/L Carbon Dioxide 27 (22-30) mmol/L BUN 25 H (7-17) mg/dL Creatinine 0.6 L (0.7-1.2) mg/dL Glucose 127 H (65-100) mg/dL Calcium 7.9 L (8.4-10.2) mg/dL AST 33 (5-40) units/L ALT 15 (7-56) units/L Alkaline Phosphatase 95 (35-129) units/L Total Protein 6.0 L (6.3-8.2) g/dL Albumin 2.4 L (3.9-5) g/dL - Allied health notes Allied health notes reviewed: RT
[2018-09-03] MEDS: PULMICORT IH SCH ×2 (09:31→19:33)
[2018-09-03] MEDS: BROVANA NEBU IH SCH ×2 (09:32→19:33)
[2018-09-03] MEDS ORDERED: NACL 0.9% 500 ML 500 ML IV ONE (10:00)
--- NOTE | 2018-09-03 10:00 | Progress Note ---
Assessment and Plan Assessment and plan: --Acute hypoxic hypercapnic respiratory failure; extubated 08/29/18 Re Intubated 09/02/18 secondary to acute respiratory failure Status post bronchoscopy, findings reviewed, sent for histopathology Continue ventilatory support, nebulizers, IV antibiotics, pulmonary critical following --Anemia; patient received 1 unit of PRBC in the past Today hemoglobin is 6.7, transfuse 1 unit PRBC Closely monitor, no external evidence of bleeding --Hypokalemia; replace per protocol, and electrolytes --Hypernatremia; no changed with sodium 158 Already ordered free water flushes 300 every 4 hours Nephrology following --Left lower extremity DVT; anticoagulation with Lovenox Check CTA chest to rule out PE --Sepsis; secondary to aspiration pneumonia, --Aspiration pneumonia; on micafungin, ID again started cefepime and Vanco --Hypertension; continue current antihypertensives --Severe malnutrition/hypoalbuminemia; Nutrition consults and supportive care --Acute kidney injury; probably secondary to ATN avoid nephrotoxins, Nephrology following --Acute systolic congestive heart failure; Ejection fraction 25-30%, continue current management Cardiology following --Elevated Transaminases; resolved --DVT prophylaxis; Lovenox Consults and recommendations noted and appreciated Plan of care reviewed with the patient's nurse The high probability of a clinically significant, sudden or life threatening det erioration of the [respiratory, cardiology, ID, renal and metabolic] system(s) required my full and direct attention, intervention and personal management. The aggregate critical care time was [32] minutes. This time is in addition to time spent performing reported procedures but includes the following: [x] Data Review and interpretation [x] Patient assessment and monitoring of vital signs [x] Documentation [x] Medication orders and management History Interval history: Patient seen and examined medical records reviewed No new events reported by the nursing staff Remains orally intubated on ventilatory support Patient had mild drop in H&H, no evidence of external bleeding Patient is comfortable not in acute distress Vital signs noted Hospitalist Physical - Constitutional Vitals: Temp Pulse Resp BP Pulse Ox 99.1 F 69 12 113/56 99 09/03/18 08:00 09/03/18 09:30 09/03/18 09:30 09/03/18 09:30 09/03/18 09:30 General appearance: Present: no acute distress, well-nourished, other ( intubated on vent) - EENT Eyes: Present: PERRL, EOM intact - Neck Neck: Present: supple - Respiratory Respiratory effort: normal Respiratory: bilateral: diminished, rhonchi, negative: rales, wheezing - Cardiovascular Rhythm: regular Heart Sounds: Present: S1 & S2 - Extremities Extremities: no ischemia, No edema - Abdominal General gastrointestinal: soft, non-tender, non-distended, normal bowel sounds - Integumentary Integumentary: Present: clear, warm - Psychiatric Psychiatric: other (intubated on vent) - Neurologic Neurologic: other (intubated on vent) Results - Labs CBC & Chem 7: 09/03/18 04:25 09/03/18 04:25 Labs: Laboratory Last Values WBC 9.7 K/mm3 (4.5-11.0) 09/03/18 04:25 RBC 2.20 M/mm3 (3.65-5.03) L 09/03/18 04:25 Hgb 6.7 gm/dl (10.1-14.3) L 09/03/18 04:25 Hct 20.9 % (30.3-42.9) L 09/03/18 04:25 MCV 95 fl (79-97) 09/03/18 04:25 MCH 31 pg (28-32) 09/03/18 04:25 MCHC 32 % (30-34) 09/03/18 04:25 RDW 21.1 % (13.2-15.2) H 09/03/18 04:25 Plt Count 248 K/mm3 (140-440) 09/03/18 04:25 Lymph % (Auto) 8.0 % (13.4-35.0) L 08/30/18 09:33 [place] % (Auto) 9.7 % (0.0-7.3) H 08/30/18 09:33 Eos % (Auto) 0.0 % (0.0-4.3) 08/30/18 09:33 Baso % (Auto) 0.2 % (0.0-1.8) 08/30/18 09:33 Lymph # 0.8 K/mm3 (1.2-5.4) L 08/30/18 09:33 [place] # 1.0 K/mm3 (0.0-0.8) H 08/30/18 09:33 Eos # 0.0 K/mm3 (0.0-0.4) 08/30/18 09:33 Baso # 0.0 K/mm3 (0.0-0.1) 08/30/18 09:33 Add Manual Diff Complete 09/03/18 04:25 Total Counted 100 09/03/18 04:25 Seg Neutrophils % 82.1 % (40.0-70.0) H 08/30/18 09:33 Seg Neuts % (Manual) 90.0 % (40.0-70.0) H 09/03/18 04:25 Band Neutrophils % 1.0 % 09/03/18 04:25 Lymphocytes % (Manual) 5.0 % (13.4-35.0) L 09/03/18 04:25 Reactive Lymphs % (Man) 0 % 09/03/18 04:25 Monocytes % (Manual) 3.0 % (0.0-7.3) 09/03/18 04:25 Eosinophils % (Manual) 0 % (0.0-4.3) 09/03/18 04:25 Basophils % (Manual) 0 % (0.0-1.8) 09/03/18 04:25 Metamyelocytes % 0 % 09/03/18 04:25 Myelocytes % 1.0 % 09/03/18 04:25 Promyelocytes % 0 % 09/03/18 04:25 Blast Cells % 0 % 09/03/18 04:25 Nucleated RBC % Not Reportable 09/03/18 04:25 Seg Neutrophils # 8.2 K/mm3 (1.8-7.7) H 08/30/18 09:33 Seg Neutrophils # Man 8.7 K/mm3 (1.8-7.7) H 09/03/18 04:25 Band Neutrophils # 0.1 K/mm3 09/03/18 04:25 Abs Lymphs (Manual) 3262 cells/uL (850-3900) 08/19/18 14:32 Lymphocytes # (Manual) 0.5 K/mm3 (1.2-5.4) L 09/03/18 04:25 Abs React Lymphs (Man) 0.0 K/mm3 09/03/18 04:25 Monocytes # (Manual) 0.3 K/mm3 (0.0-0.8) 09/03/18 04:25 Eosinophils # (Manual) 0.0 K/mm3 (0.0-0.4) 09/03/18 04:25 Basophils # (Manual) 0.0 K/mm3 (0.0-0.1) 09/03/18 04:25 Metamyelocytes # 0.0 K/mm3 09/03/18 04:25 Myelocytes # 0.1 K/mm3 09/03/18 04:25 Promyelocytes # 0.0 K/mm3 09/03/18 04:25 Blast Cells # 0.0 K/mm3 09/03/18 04:25 WBC Morphology Not Reportable 09/03/18 04:25 Hypersegmented Neuts Not Reportable 09/03/18 04:25 Hyposegmented Neuts Not Reportable 09/03/18 04:25 Hypogranular Neuts Not Reportable 09/03/18 04:25 Smudge Cells Not Reportable 09/03/18 04:25 Toxic Granulation Not Reportable 09/03/18 04:25 Toxic Vacuolation Not Reportable 09/03/18 04:25 Dohle Bodies Not Reportable 09/03/18 04:25 Pelger-Huet Anomaly Not Reportable 09/03/18 04:25 Rosy Rods Not Reportable 09/03/18 04:25 Platelet Estimate Consistent w auto 09/03/18 04:25 Clumped Platelets Not Reportable 09/03/18 04:25 Plt Clumps, EDTA Not Reportable 09/03/18 04:25 Large Platelets Not Reportable 09/03/18 04:25 Giant Platelets Not Reportable 09/03/18 04:25 Platelet Satelliting Not Reportable 09/03/18 04:25 Plt Morphology Comment Not Reportable 09/03/18 04:25 RBC Morphology Not Reportable 09/03/18 04:25 Dimorphic RBCs Not Reportable 09/03/18 04:25 Polychromasia Not Reportable 09/03/18 04:25 Hypochromasia 1+ 09/03/18 04:25 Poikilocytosis 1+ 09/03/18 04:25 Anisocytosis 1+ 09/03/18 04:25 Microcytosis Not Reportable 09/03/18 04:25 Macrocytosis Not Reportable 09/03/18 04:25 Spherocytes Not Reportable 09/03/18 04:25 Pappenheimer Bodies Not Reportable 09/03/18 04:25 Sickle Cells Not Reportable 09/03/18 04:25 Target Cells Not Reportable 09/03/18 04:25 Tear Drop Cells Not Reportable 09/03/18 04:25 Ovalocytes Not Reportable 09/03/18 04:25 Helmet Cells Not Reportable 09/03/18 04:25 [place] Bodies Not Reportable 09/03/18 04:25 [place] Rings Not Reportable 09/03/18 04:25 Umpire Cells Not Reportable 09/03/18 04:25 Bite Cells Not Reportable 09/03/18 04:25 Crenated Cell Not Reportable 09/03/18 04:25 Elliptocytes Not Reportable 09/03/18 04:25 Acanthocytes (Spur) Not Reportable 09/03/18 04:25 Rouleaux Not Reportable 09/03/18 04:25 Hemoglobin C Crystals Not Reportable 09/03/18 04:25 Schistocytes Not Reportable 09/03/18 04:25 Malaria parasites Not Reportable 09/03/18 04:25 Ceasar Bodies Not Reportable 09/03/18 04:25 Hem Pathologist Commnt No 09/03/18 04:25 D-Dimer 2768.33 ng/mlDDU (0-234) H 08/15/18 18:31 Heparin Anti-Xa, Unfract Negative (Negative) 08/22/18 15:29 POC ABG pH 7.412 (7.35-7.45) 09/03/18 03:36 POC ABG pCO2 40.4 (35-45) 09/03/18 03:36 POC ABG pO2 54 (80-105) L 09/03/18 03:36 POC ABG HCO3 25.8 (22-26 mml/L) 09/03/18 03:36 POC ABG Total CO2 27 (23-27mmol/L) 09/03/18 03:36 POC ABG O2 Sat 88 09/03/18 03:36 POC ABG Base Excess 1 ((-2) - (+3)mmol/L) 09/03/18 03:36 VBG pH 7.187 (7.320-7.420) L* 08/15/18 18:19 FiO2 100 % 09/03/18 03:36 Sodium 158 mmol/L (137-145) H 09/03/18 04:25 Potassium 3.1 mmol/L (3.6-5.0) L 09/03/18 04:25 Chloride 120.4 mmol/L (98-107) H 09/03/18 04:25 Carbon Dioxide 27 mmol/L (22-30) 09/03/18 04:25 Anion Gap 14 mmol/L 09/03/18 04:25 BUN 25 mg/dL (7-17) H 09/03/18 04:25 Creatinine 0.6 mg/dL (0.7-1.2) L 09/03/18 04:25 Estimated GFR > 60 ml/min 09/03/18 04:25 BUN/Creatinine Ratio 42 % 09/03/18 04:25 Glucose 127 mg/dL (65-100) H 09/03/18 04:25 POC Glucose 178 (70-105) H 09/03/18 05:45 Hemoglobin A1c 6.4 % (4-6) H 08/15/18 23:09 Lactic Acid 1.20 mmol/L (0.7-2.0) 08/22/18 15:29 Calcium 7.9 mg/dL (8.4-10.2) L 09/03/18 04:25 Phosphorus 3.10 mg/dL (2.5-4.5) 09/02/18 04:58 Magnesium 1.70 mg/dL (1.7-2.3) 09/03/18 04:25 Total Bilirubin 0.40 mg/dL (0.1-1.2) 09/03/18 04:25 AST 33 units/L (5-40) 09/03/18 04:25 ALT 15 units/L (7-56) 09/03/18 04:25 Alkaline Phosphatase 95 units/L (35-129) 09/03/18 04:25 Troponin T 0.317 ng/mL (0.00-0.029) H* D 08/18/18 13:39 C-Reactive Protein 5.00 mg/dL (0.00-1.30) H 08/25/18 05:20 Total Protein 6.0 g/dL (6.3-8.2) L 09/03/18 04:25 Albumin 2.4 g/dL (3.9-5) L 09/03/18 04:25 Albumin/Globulin Ratio 0.7 % 09/03/18 04:25 Triglycerides 197 mg/dL (2-149) H 08/22/18 06:45 Cholesterol 87 mg/dL (50-199) 08/15/18 18:31 LDL Cholesterol Direct 4 mg/dL (50-130) L 08/15/18 18:31 HDL Cholesterol 10 mg/dL (40-59) L 08/15/18 18:31 Cholesterol/HDL Ratio 8.70 % 08/15/18 18:31 Serotonin Release Assay See scanned results 08/22/18 15:29 Total Cortisol 21.4 mcg/dL () 08/25/18 08:52 Urine Color Rosemarie (Yellow) 08/15/18 19:15 Urine Turbidity Cloudy (Clear) 08/15/18 19:15 Urine pH 5.0 (5.0-7.0) 08/15/18 19:15 Ur Specific [place] 1.025 (1.003-1.030) 08/15/18 19:15 Urine Protein 30 mg/dl mg/dL (Negative) 08/15/18 19:15 Urine Glucose (UA) Neg mg/dL (Negative) 08/15/18 19:15 Urine Ketones Neg mg/dL (Negative) 08/15/18 19:15 Urine Blood Mod (Negative) 08/15/18 19:15 Urine Nitrite Neg (Negative) 08/15/18 19:15 Urine Bilirubin Neg (Negative) 08/15/18 19:15 Urine Urobilinogen 2.0 mg/dL (<2.0) 08/15/18 19:15 Ur Leukocyte Esterase Mod (Negative) 08/15/18 19:15 Urine WBC (Auto) 17.0 /HPF (0.0-6.0) H 08/15/18 19:15 Urine RBC (Auto) 5.0 /HPF (0.0-6.0) 08/15/18 19:15 Urine WBC Clumps 2+ /HPF 08/15/18 19:15 Amorphous Crystals 1+ 08/15/18 19:15 Hyaline Casts 54 /LPF 08/15/18 19:15 Granular Casts 14 /LPF 08/15/18 19:15 Urine Mucus Few /HPF 08/15/18 19:15 Salicylates < 0.3 mg/dL (2.8-20.0) L 08/15/18 19:14 Urine Opiates Screen Presumptive positive 08/15/18 19:15 Urine Methadone Screen Presumptive negative 08/15/18 19:15 Acetaminophen < 5.0 ug/mL (10.0-30.0) L 08/15/18 19:14 Ur Barbiturates Screen Presumptive negative 08/15/18 19:15 Ur Phencyclidine Scrn Presumptive negative 08/15/18 19:15 Ur Amphetamines Screen Presumptive negative 08/15/18 19:15 U Benzodiazepines Scrn Presumptive negative 08/15/18 19:15 Urine Cocaine Screen Presumptive negative 08/15/18 19:15 U Marijuana (THC) Screen Presumptive negative 08/15/18 19:15 Drugs of Abuse Note Disclamer 08/15/18 19:15 Heparin-induced Plt Ab Negative (Negative) 08/22/18 15:29 UF Heparin High Dose 0 % Release 08/22/18 15:29 NAZIA UFH Low Dose 0.1 0 % Release 08/22/18 15:29 NAZIA UFH Low Dose 0.5 0 % Release 08/22/18 15:29 Lymph Enumerat CD4/CD8 1.98 (0.86-5.00) 08/19/18 14:32 % CD3 Cells 44 % (57-85) L 08/19/18 14:32 Absolute CD3 Count 1451 cells/uL (840-3060) 08/19/18 14:32 % CD4 Cells 30 % (30-61) 08/19/18 14:32 Absolute CD4 Count 1004 cells/uL (490-1740) 08/19/18 14:32 % CD8 Cells 15 % (12-42) 08/19/18 14:32 Absolute CD8 Count 508 cells/uL (180-1170) 08/19/18 14:32 % CD19 Cells 41 % (6-29) H 08/19/18 14:32 Absolute CD19 Count 1290 cells/uL (110-660) H 08/19/18 14:32 C. difficile Toxin A&B Negative (Negative) 08/19/18 14:00 HIV 1&2 Antibody Rapid Non react (Non React) 08/18/18 13:39 HIV P24 Antigen Non react (Non React) 08/18/18 13:39 Miscellaneous Test Flexitest 1 08/30/18 10:00 Blood Type O POSITIVE 08/25/18 08:52 Antibody Screen Negative 08/25/18 08:52 Crossmatch See Detail 08/25/18 08:52 Active Medications - Current Medications Current Medications: Generic Name Dose Route Start Last Admin Trade Name Freq PRN Reason Stop Dose Admin Acetaminophen 650 mg 08/15/18 22:12 08/24/18 21:30 Tylenol PO 650 mg Q4H PRN Administration Pain MILD(1-3)/Fever >100.5/MONDRAGON Albuterol 2.5 mg 08/17/18 17:00 Proventil IH Q3HRT PRN Shortness Of Breath Albuterol/Ipratropium 1 ampul 08/20/18 14:00 09/03/18 09:32 Duoneb *Not For Prn Use* IH 1 ampul Q6HRT LAMAR Administration Lipase/Protease/Amylase 1 each 09/02/18 10:40 Pancresam Elizabeth 10,500 Unit FEEDTUBE PRN PRN For Clogged Feeding Tube Arformoterol Tartrate 15 mcg 08/18/18 20:00 09/03/18 09:32 Brovana Nebu IH 15 mcg Q12HRT LAMAR Administration Budesonide 0.5 mg 08/18/18 20:00 09/03/18 09:31 Pulmicort IH 0.5 mg Q12HRT LAMAR Administration Carvedilol 3.125 mg 08/26/18 15:19 09/02/18 21:50 Coreg PO 3.125 mg BID LAMAR Administration Duloxetine HCl 60 mg 08/16/18 10:00 08/30/18 14:35 Cymbalta PO Not Given QDAY LAMAR Enoxaparin Sodium 100 mg 09/01/18 22:00 09/02/18 21:52 Lovenox 1 mg/kg (100 mg) 100 mg SUB-Q Administration Q12HR LAMAR Famotidine 10 mg 08/31/18 22:00 09/02/18 21:49 Pepcid PO 10 mg BID LAMAR Administration Fentanyl 50 mcg 09/02/18 10:17 Sublimaze IV Q10MIN PRN ANALGESIA Hydralazine HCl 10 mg 08/19/18 13:59 08/29/18 14:22 Apresoline IV 10 mg Q3H PRN Administration Hydralazine HCl 25 mg 09/01/18 14:00 09/03/18 05:03 Apresoline PO 25 mg Q8HR LAMAR Administration Hydrophilic Ointment 1 applic 08/15/18 21:55 09/01/18 09:07 Vaseline Lip Therapy TP 1 applic Q2HR PRN Administration Dry Lips Dexmedetomidine HCl 400 mcg/ 104 mls @ 4.956 mls/hr 09/01/18 18:00 09/02/18 09:00 Sodium Chloride IV 0 mcg/kg/hr TITRATE LAMAR 0 mls/hr Titration Protocol 0.2 MCG/KG/HR Chlorothiazide Sodium 500 mg/ 50 mls @ 200 mls/hr 09/02/18 22:00 09/02/18 21:55 Sodium Chloride IV 200 mls/hr QDAY@2200 LAMAR Administration Fentanyl Citrate 2,000 mcg in 100 mls @ 4.765 mls/hr 09/02/18 11:00 09/03/18 06:37 Fentanyl Drip Premix IV 3 mcg/kg/hr TITR LAMAR 14.295 mls/hr Titration Protocol 1 MCG/KG/HR Propofol 1,000 mg in 100 mls @ 2.859 mls/hr 09/02/18 11:00 09/03/18 08:15 Diprivan 10 Mg/Ml IV 20 mcg/kg/min TITR LAAMR 11.436 mls/hr Titration Protocol 5 MCG/KG/MIN Potassium Chloride 20 meq/ 1,010 mls @ 75 mls/hr 09/02/18 10:45 09/02/18 17:30 Dextrose/Sodium Chloride IV 75 mls/hr DIRECT LAMAR Administration Cefepime HCl 2 gm in 100 mls @ 200 mls/hr 09/02/18 15:00 09/02/18 21:50 Maxipime/Ns 2 Gm/100 Ml IV 200 mls/hr Q12HR LAMAR Administration Protocol Micafungin Sodium 100 mg/ 100 mls @ 100 mls/hr 09/02/18 15:00 09/02/18 17:36 Sodium Chloride IV 100 mls/hr QDAY LAMAR Administration Protocol Vancomycin HCl 1,500 mg/ 530 mls @ 333.333 mls/hr 09/03/18 04:00 09/03/18 04:12 Sodium Chloride IV 333.333 mls/hr Q12H LAMAR Administration Metoclopramide HCl 5 mg 08/15/18 22:50 Reglan IV Q6H PRN Nausea And Vomiting Morphine Sulfate 1 mg 08/29/18 15:29 09/01/18 16:16 Morphine IV 1 mg Q4H PRN Administration Pain, Moderate (4-6) Morphine Sulfate 30 mg 08/31/18 12:00 09/03/18 08:23 Morphine PO Not Given Q6HR LAMAR Ondansetron HCl 4 mg 08/15/18 22:12 08/31/18 17:52 Zofran IV 4 mg Q8H PRN Administration Nausea And Vomiting Simple Syrup 15 ml 09/02/18 11:24 Simple Syrup FEEDTUBE PRN PRN Hypoglycemia Simple Syrup 30 ml 09/02/18 11:24 Simple Syrup FEEDTUBE PRN PRN Hypoglycemia Sodium Bicarbonate 325 mg 09/02/18 10:40 Sodium Bicarbonate FEEDTUBE PRN PRN For Clogged Feeding Tube Sodium Chloride 10 ml 08/15/18 22:12 08/25/18 21:35 Sodium Chloride Flush Syringe 10 Ml IV 10 ml PRN PRN Administration LINE FLUSH Nutrition/Malnutrition Assess - Dietary Evaluation Nutrition/Malnutrition Findings: Nutrition Notes Start: 08/17/18 13:57 Freq: Status: Active Protocol: Document 09/02/18 10:32 MADAY (Rec: 09/02/18 10:37 MADAY [email or web address]) Nutrition Notes Need for Assessment generated from: MD Order Initial or Follow up Brief Note Current Diet Pureed Labs/Tests Na 158 BUN 27 K 2.9 Mg 1.6 Pertinent Medications Mag sulfate x 1, 20mEq KCl x 3 bags Height 5 ft 7 in Weight 95.3 kg [place] Body Weight (kg) 61.36 BMI 32.9 Subjective/Other Information RD consulted for TF. Pt re- intubated this am. Is patient on ventilator? Yes Is Patient Ambulatory and/or Out of Bed No REE-([facility]-confined to bed) 2124.039 Calculation Used for Recommendations 65-70% energy needs Additional Notes Pro needs 2g/kg IBW: 123g/day Fluid needs 1ml/kcal Nutrition Intervention Nutrition Support: Vital High Protein at 55ml/hr. Provide 100ml water flush q4h until hypernatremia resolved. Kcal 1,320 Protein (gm) 116 Fluid (mL) 1,103 Goal #1 TF tolerance Goal #2 TF to meet 65-70% energy and 80-100% pro needs Follow-Up By: 09/04/18 Additional Comments F/U: new TF, vent status
[2018-09-03] MEDS: PEPCID PO SCH ×2 (10:28→22:25)
[2018-09-03] MEDS: LOVENOX SUB-Q SCH ×2 (10:28→22:24)
[2018-09-03] MEDS: MYCAMINE 100 MG in NACL 0.9% 100 ML IV SCH (10:31)
[2018-09-03] MEDS: SODIUM CHLORIDE FLUSH SYRINGE 10 ML IV PRN (10:31)
[2018-09-03] MEDS: MAXIPIME/NS 2 GM/100 ML 2 GM/100 ML BAG IV SCH ×2 (10:32→22:25)
[2018-09-03] MEDS: COREG PO SCH ×2 (10:38→22:26)
[2018-09-03] MEDS: DEXMEDETOMIDINE 400 MCG in NACL 0.9% 100 ML IV SCH (12:42)
[2018-09-03] MEDS: KCL 20 MEQ in D5NS 0.2% 1,000 ML IV SCH (14:57)
[2018-09-03] MEDS: TYLENOL PO PRN (16:26)
--- NOTE | 2018-09-03 18:37 | Progress Note ---
Assessment and Plan Severe sepsis Intermittent fevers andleukocytosis -Fungemia on Micafungin Acute hypoxic-hypercapnic respiratory failure on NIPPV h/o COPD Acute kidney injury, resolved Acute encephalopathy( toxic-metabolic) Aspiration pneumonia/CAP New onset cardiomyopathy, LVEF 25-30% this admission Previous echo 03/30/2016 at [facility] revealed normal LVEF Previous stress MPI 03/29/2016 at [facility] revealed no ischemia Abnormal ECG showing LBBB, chronic Anemia s/p PRBC with appropriate response -Recent EGD at [facility] 08/08/2018 revealing irregular Z line, gastritis and small hiatal hernia Recent colonoscopy at [facility] 08/08/2018 revealing sigmoid polyp, transverse colon polyps, inflamed hemorrhoids and diverticulosis E.coli/Staph pneumonia Thrombocytopenia resolved Hypernatremia Hypokalemia -s/p Intubation and bronchoscopy for lower respiratory tract cultures. -VAP bundle addressed -Aspiration precautions -Replace potassium -Wean supplemental oxygen to keep O2 sats 88-90% -Oxygen restrictive strategies -ABG and CXR -Antibiotics/antifungal to complete course -Hypotonic solution for hypernatremia -OGT for free water, medications and nutritional support. Attempts at placing small bowel feeding tube at the bedside was unsuccessful - agitation and analgesia management -Monitor renal indices -Cardioprotective measures -Stress ulcer prophylaxis -CT head -Aspiration precautions -Accuchecks with glycemic control. Target glucose of 140-180 mg/dL -Continue bronchodilators with pulmonary hygiene per RT -Maintenance of sleep -wake cycle -Mobility program -Agitation and analgesia, RAAS 0 to -1 -Influenza and pneumonia vaccination per protocol ..care plan discussed at length with RN/RT at the bedside ...discussed care plan with ICU team on ICU-IDT rounds Discussed with the at the bedside. Updated him and care plan discussed. He expresses concern at the respiratory status. PROGNOSIS :GUARDED CONDITION: CRITICAL CODE STATUS: FULL CODE The high probability of a clinically significant, sudden or life-threatening deterioration of the [respiratory, cardiovascular, renal] system(s) required my full and direct attention, intervention and personal management. The aggregate critical care time was [35] minutes without overlap. Time includes spent on; [x] Data Review and interpretation [x] Patient assessment and monitoring of vital signs [x] Documentation [x] Medication orders and management Subjective Date of service: 09/03/18 Principal diagnosis: Acute hypoxemic hypercapnic Resp failure; AE-COPD; Acute kidney injury Interval history: Follow up: Aspiration PNA, Abnormal CXR, Hypotension, Acute renal failure, Acute encephaloapthy, Acute hypoxemic respiratory failure on NIPPV Seen and examined. Vitals, labs, medications, chart and imaging reviewed. 24 hours events reviewed. More obtunded with increased work of breathing requiring re-intubation yesterday Left Lext doppler showed DVT , first dose of enoxaparin administered yesterday. Will get CT head today and r/o any intracranial processes Objective Vital Signs - 12hr 09/03/18 09/03/18 09/03/18 06:46 07:00 07:16 Temperature Pulse Rate 68 71 69 Pulse Rate [ Anterior Bilateral Throughout] Respiratory 19 20 17 Rate Respiratory Rate [Anterior Bilateral Throughout] Blood Pressure 105/45 103/49 91/43 O2 Sat by Pulse 96 96 99 Oximetry 09/03/18 09/03/18 09/03/18 07:30 07:45 08:00 Temperature 99.1 F Pulse Rate 70 69 68 Pulse Rate [ Anterior Bilateral Throughout] Respiratory 20 16 14 Rate Respiratory Rate [Anterior Bilateral Throughout] Blood Pressure 97/48 91/42 89/45 O2 Sat by Pulse 98 99 100 Oximetry 09/03/18 09/03/18 09/03/18 08:15 08:30 08:45 Temperature Pulse Rate 68 68 67 Pulse Rate [ Anterior Bilateral Throughout] Respiratory 28 H 25 H 16 Rate Respiratory Rate [Anterior Bilateral Throughout] Blood Pressure 99/45 96/42 96/46 O2 Sat by Pulse 99 99 99 Oximetry 09/03/18 09/03/18 09/03/18 09:00 09:10 09:15 Temperature Pulse Rate 69 71 Pulse Rate [ 70 77 Anterior Bilateral Throughout] Respiratory 17 25 H Rate Respiratory 22 30 H Rate [Anterior Bilateral Throughout] Blood Pressure 90/42 103/49 O2 Sat by Pulse 98 95 Oximetry 09/03/18 09/03/18 09/03/18 09:30 09:45 10:00 Temperature Pulse Rate 69 74 75 Pulse Rate [ Anterior Bilateral Throughout] Respiratory 12 12 16 Rate Respiratory Rate [Anterior Bilateral Throughout] Blood Pressure 113/56 118/55 115/77 O2 Sat by Pulse 99 100 98 Oximetry 09/03/18 09/03/18 09/03/18 10:16 10:30 10:38 Temperature Pulse Rate 78 98 H 93 H Pulse Rate [ Anterior Bilateral Throughout] Respiratory 22 13 Rate Respiratory Rate [Anterior Bilateral Throughout] Blood Pressure 120/51 134/53 134/53 O2 Sat by Pulse 94 92 Oximetry 09/03/18 09/03/18 09/03/18 10:46 11:00 11:16 Temperature Pulse Rate 83 100 H 89 Pulse Rate [ Anterior Bilateral Throughout] Respiratory 17 35 H 18 Rate Respiratory Rate [Anterior Bilateral Throughout] Blood Pressure 112/47 122/52 97/40 O2 Sat by Pulse 94 79 L 99 Oximetry 09/03/18 09/03/18 09/03/18 11:30 11:45 12:00 Temperature 99.6 F Pulse Rate 83 84 113 H Pulse Rate [ Anterior Bilateral Throughout] Respiratory 18 18 15 Rate Respiratory Rate [Anterior Bilateral Throughout] Blood Pressure 92/46 85/39 100/46 O2 Sat by Pulse 100 100 94 Oximetry 09/03/18 09/03/18 09/03/18 12:16 12:30 12:46 Temperature Pulse Rate 100 H 105 H 105 H Pulse Rate [ Anterior Bilateral Throughout] Respiratory 11 L 39 H 33 H Rate Respiratory Rate [Anterior Bilateral Throughout] Blood Pressure 142/53 147/61 135/72 O2 Sat by Pulse 100 93 90 Oximetry 09/03/18 09/03/18 09/03/18 13:00 13:16 13:30 Temperature Pulse Rate 104 H 105 H 105 H Pulse Rate [ Anterior Bilateral Throughout] Respiratory 22 38 H 34 H Rate Respiratory Rate [Anterior Bilateral Throughout] Blood Pressure 145/77 139/58 123/56 O2 Sat by Pulse 89 89 94 Oximetry 09/03/18 09/03/18 09/03/18 13:45 14:00 14:10 Temperature Pulse Rate 107 H 110 H Pulse Rate [ 102 H 100 H Anterior Bilateral Throughout] Respiratory 37 H 38 H Rate Respiratory 34 H 33 H Rate [Anterior Bilateral Throughout] Blood Pressure 129/76 120/69 O2 Sat by Pulse 96 92 Oximetry 09/03/18 09/03/18 09/03/18 14:15 14:17 14:30 Temperature Pulse Rate 103 H 100 H 103 H Pulse Rate [ Anterior Bilateral Throughout] Respiratory 29 H 36 H Rate Respiratory Rate [Anterior Bilateral Throughout] Blood Pressure 104/62 104/62 130/55 O2 Sat by Pulse 98 96 98 Oximetry 09/03/18 09/03/18 09/03/18 14:46 14:52 15:00 Temperature Pulse Rate 112 H 106 H 100 H Pulse Rate [ Anterior Bilateral Throughout] Respiratory 35 H 34 H Rate Respiratory Rate [Anterior Bilateral Throughout] Blood Pressure 159/57 159/57 129/30 O2 Sat by Pulse 91 98 Oximetry 09/03/18 09/03/18 09/03/18 15:16 15:30 15:45 Temperature Pulse Rate 94 H 91 H 89 Pulse Rate [ Anterior Bilateral Throughout] Respiratory 19 22 18 Rate Respiratory Rate [Anterior Bilateral Throughout] Blood Pressure 76/35 80/36 87/39 O2 Sat by Pulse 100 100 100 Oximetry 09/03/18 09/03/18 09/03/18 16:00 16:15 16:30 Temperature 101.2 F H Pulse Rate 88 89 89 Pulse Rate [ Anterior Bilateral Throughout] Respiratory 17 17 21 Rate Respiratory Rate [Anterior Bilateral Throughout] Blood Pressure 92/42 88/38 81/40 O2 Sat by Pulse 100 100 100 Oximetry 09/03/18 09/03/18 09/03/18 16:45 17:00 17:30 Temperature Pulse Rate 99 H 82 98 H Pulse Rate [ Anterior Bilateral Throughout] Respiratory 29 H 13 Rate Respiratory Rate [Anterior Bilateral Throughout] Blood Pressure 98/44 84/41 116/48 O2 Sat by Pulse 96 100 95 Oximetry 09/03/18 18:26 Temperature 99.6 F Pulse Rate 98 H Pulse Rate [ Anterior Bilateral Throughout] Respiratory 20 Rate Respiratory Rate [Anterior Bilateral Throughout] Blood Pressure 116/48 O2 Sat by Pulse 100 Oximetry Constitutional: appears uncomfortable, other (elderly looking CF, normocephalic and atraumatic) Eyes: non-icteric ENT: oropharynx dry, other (ETT at 23cm at the lip) Neck: supple, no lymphadenopathy, no JVD, other (no thyromegaly) Effort: very labored Ascultation: Bilateral: diminished breath sounds, rales, rhonchi Percussion: Bilateral: not dull Cardiovascular: regular rate and rhythm, other (S1,S2, no murmurs) Gastrointestinal: normoactive bowel sounds, soft, non-tender, non-distended Integumentary: normal Extremities: no cyanosis, no ischemia or petechiae, edema (Left leg) Neurologic: pupils equal and round, unable to assess Psychiatric: other (obtunded, unable to assess) CBC and BMP: 09/06/18 04:20 09/06/18 04:20 ABG, PT/INR, D-dimer: ABG POC ABG pH 7.412 (7.35-7.45) 09/03/18 03:36 POC ABG pCO2 40.4 (35-45) 09/03/18 03:36 POC ABG pO2 54 (80-105) L 09/03/18 03:36 POC ABG HCO3 25.8 (22-26 mml/L) 09/03/18 03:36 POC ABG Total CO2 27 (23-27mmol/L) 09/03/18 03:36 POC ABG O2 Sat 88 09/03/18 03:36 PT/INR, D-dimer D-Dimer 2768.33 ng/mlDDU (0-234) H 08/15/18 18:31 Abnormal lab findings: Abnormal Labs 08/15/18 08/15/18 08/15/18 17:52 17:52 17:52 WBC 12.7 H RBC 3.25 L Hgb Hct RDW Plt Count Lymph % (Auto) [place] % (Auto) Lymph # [place] # Seg Neutrophils % Seg Neuts % (Manual) Lymphocytes % (Manual) 6.0 L Nucleated RBC % Seg Neutrophils # Seg Neutrophils # Man Lymphocytes # (Manual) 0.8 L D-Dimer POC ABG pH POC ABG pCO2 POC ABG pO2 VBG pH Sodium Potassium 3.4 L Chloride 94.6 L Carbon Dioxide 17 L BUN 67 H Creatinine 3.5 H Glucose 131 H POC Glucose Hemoglobin A1c Lactic Acid 5.20 H* Calcium 7.6 L Phosphorus Magnesium AST 887 H ALT 316 H Troponin T C-Reactive Protein Total Protein Albumin 3.1 L Triglycerides LDL Cholesterol Direct HDL Cholesterol Urine WBC (Auto) Salicylates Acetaminophen % CD3 Cells % CD19 Cells Absolute CD19 Count Miscellaneous Test Crossmatch 08/15/18 08/15/18 08/15/18 18:11 18:19 18:31 WBC RBC Hgb Hct RDW Plt Count Lymph % (Auto) [place] % (Auto) Lymph # [place] # Seg Neutrophils % Seg Neuts % (Manual) Lymphocytes % (Manual) Nucleated RBC % Seg Neutrophils # Seg Neutrophils # Man Lymphocytes # (Manual) D-Dimer 2768.33 H POC ABG pH 7.173 L POC ABG pCO2 47.8 H POC ABG pO2 177 H VBG pH 7.187 L* Sodium Potassium Chloride Carbon Dioxide BUN Creatinine Glucose POC Glucose Hemoglobin A1c Lactic Acid Calcium Phosphorus Magnesium AST ALT Troponin T C-Reactive Protein Total Protein Albumin Triglycerides LDL Cholesterol Direct HDL Cholesterol Urine WBC (Auto) Salicylates Acetaminophen % CD3 Cells % CD19 Cells Absolute CD19 Count Miscellaneous Test Crossmatch 08/15/18 08/15/18 08/15/18 18:31 19:14 19:14 WBC RBC Hgb Hct RDW Plt Count Lymph % (Auto) [place] % (Auto) Lymph # [place] # Seg Neutrophils % Seg Neuts % (Manual) Lymphocytes % (Manual) Nucleated RBC % Seg Neutrophils # Seg Neutrophils # Man Lymphocytes # (Manual) D-Dimer POC ABG pH POC ABG pCO2 POC ABG pO2 VBG pH Sodium Potassium Chloride Carbon Dioxide BUN Creatinine Glucose POC Glucose Hemoglobin A1c Lactic Acid 2.70 H* Calcium Phosphorus Magnesium AST ALT Troponin T 0.454 H* C-Reactive Protein Total Protein Albumin Triglycerides 356 H LDL Cholesterol Direct 4 L HDL Cholesterol 10 L Urine WBC (Auto) Salicylates < 0.3 L Acetaminophen % CD3 Cells % CD19 Cells Absolute CD19 Count Miscellaneous Test Crossmatch 08/15/18 08/15/18 08/15/18 19:14 19:15 23:09 WBC RBC Hgb Hct RDW Plt Count Lymph % (Auto) [place] % (Auto) Lymph # [place] # Seg Neutrophils % Seg Neuts % (Manual) Lymphocytes % (Manual) Nucleated RBC % Seg Neutrophils # Seg Neutrophils # Man Lymphocytes # (Manual) D-Dimer POC ABG pH POC ABG pCO2 POC ABG pO2 VBG pH Sodium Potassium Chloride Carbon Dioxide BUN Creatinine Glucose POC Glucose Hemoglobin A1c Lactic Acid 3.20 H* Calcium Phosphorus Magnesium AST ALT Troponin T C-Reactive Protein Total Protein Albumin Triglycerides LDL Cholesterol Direct HDL Cholesterol Urine WBC (Auto) 17.0 H Salicylates Acetaminophen < 5.0 L % CD3 Cells % CD19 Cells Absolute CD19 Count Miscellaneous Test Crossmatch 08/15/18 08/16/18 08/16/18 23:09 01:41 05:38 WBC RBC 3.07 L Hgb 9.8 L Hct 28.7 L RDW Plt Count Lymph % (Auto) [place] % (Auto) Lymph # [place] # Seg Neutrophils % Seg Neuts % (Manual) 84.0 H Lymphocytes % (Manual) 6.0 L Nucleated RBC % 4.0 H Seg Neutrophils # Seg Neutrophils # Man Lymphocytes # (Manual) 0.5 L D-Dimer POC ABG pH 7.323 L POC ABG pCO2 34.7 L POC ABG pO2 78 L VBG pH Sodium Potassium Chloride Carbon Dioxide BUN Creatinine Glucose POC Glucose Hemoglobin A1c 6.4 H Lactic Acid Calcium Phosphorus Magnesium AST ALT Troponin T C-Reactive Protein Total Protein Albumin Triglycerides LDL Cholesterol Direct HDL Cholesterol Urine WBC (Auto) Salicylates Acetaminophen % CD3 Cells % CD19 Cells Absolute CD19 Count Miscellaneous Test Crossmatch 08/16/18 08/16/18 08/17/18 05:38 22:43 03:42 WBC RBC Hgb Hct RDW Plt Count Lymph % (Auto) [place] % (Auto) Lymph # [place] # Seg Neutrophils % Seg Neuts % (Manual) Lymphocytes % (Manual) Nucleated RBC % Seg Neutrophils # Seg Neutrophils # Man Lymphocytes # (Manual) D-Dimer POC ABG pH POC ABG pCO2 POC ABG pO2 VBG pH Sodium Potassium 2.9 L* 3.1 L 2.9 L* Chloride 108.8 H 111.9 H Carbon Dioxide 17 L 19 L 21 L BUN 62 H 40 H 33 H Creatinine 2.0 H Glucose 139 H 145 H POC Glucose Hemoglobin A1c Lactic Acid Calcium 7.8 L 8.3 L Phosphorus 1.50 L Magnesium AST 619 H ALT 353 H Troponin T C-Reactive Protein Total Protein 6.1 L Albumin 2.8 L Triglycerides LDL Cholesterol Direct HDL Cholesterol Urine WBC (Auto) Salicylates Acetaminophen % CD3 Cells % CD19 Cells Absolute CD19 Count Miscellaneous Test Crossmatch 08/17/18 08/17/18 08/18/18 11:02 16:42 03:28 WBC RBC Hgb Hct RDW Plt Count Lymph % (Auto) [place] % (Auto) Lymph # [place] # Seg Neutrophils % Seg Neuts % (Manual) Lymphocytes % (Manual) Nucleated RBC % Seg Neutrophils # Seg Neutrophils # Man Lymphocytes # (Manual) D-Dimer POC ABG pH 7.483 H 7.499 H POC ABG pCO2 POC ABG pO2 VBG pH Sodium 147 H Potassium 3.2 L Chloride 115.8 H Carbon Dioxide BUN 23 H Creatinine Glucose 121 H POC Glucose Hemoglobin A1c Lactic Acid Calcium 8.1 L Phosphorus 2.30 L D Magnesium AST ALT Troponin T C-Reactive Protein Total Protein Albumin Triglycerides LDL Cholesterol Direct HDL Cholesterol Urine WBC (Auto) Salicylates Acetaminophen % CD3 Cells % CD19 Cells Absolute CD19 Count Miscellaneous Test Crossmatch 08/18/18 08/18/18 08/18/18 04:10 13:39 13:39 WBC RBC Hgb Hct RDW Plt Count Lymph % (Auto) [place] % (Auto) Lymph # [place] # Seg Neutrophils % Seg Neuts % (Manual) Lymphocytes % (Manual) Nucleated RBC % Seg Neutrophils # Seg Neutrophils # Man Lymphocytes # (Manual) D-Dimer POC ABG pH POC ABG pCO2 POC ABG pO2 VBG pH Sodium 147 H Potassium 3.3 L Chloride 111.9 H Carbon Dioxide BUN 21 H Creatinine Glucose 113 H POC Glucose Hemoglobin A1c Lactic Acid Calcium Phosphorus 1.50 L D Magnesium AST ALT Troponin T 0.317 H* D C-Reactive Protein 10.70 H Total Protein Albumin Triglycerides LDL Cholesterol Direct HDL Cholesterol Urine WBC (Auto) Salicylates Acetaminophen % CD3 Cells % CD19 Cells Absolute CD19 Count Miscellaneous Test Crossmatch 08/18/18 08/19/18 08/19/18 16:51 03:47 04:15 WBC RBC Hgb Hct RDW Plt Count Lymph % (Auto) [place] % (Auto) Lymph # [place] # Seg Neutrophils % Seg Neuts % (Manual) Lymphocytes % (Manual) Nucleated RBC % Seg Neutrophils # Seg Neutrophils # Man Lymphocytes # (Manual) D-Dimer POC ABG pH 7.454 H 7.482 H POC ABG pCO2 POC ABG pO2 65 L VBG pH Sodium 154 H Potassium 3.3 L Chloride 115.1 H Carbon Dioxide BUN 19 H Creatinine Glucose 117 H POC Glucose Hemoglobin A1c Lactic Acid Calcium 7.8 L Phosphorus Magnesium AST ALT Troponin T C-Reactive Protein Total Protein Albumin Triglycerides LDL Cholesterol Direct HDL Cholesterol Urine WBC (Auto) Salicylates Acetaminophen % CD3 Cells % CD19 Cells Absolute CD19 Count Miscellaneous Test Crossmatch 08/19/18 08/19/18 08/20/18 14:32 16:18 03:51 WBC RBC Hgb Hct RDW Plt Count Lymph % (Auto) [place] % (Auto) Lymph # [place] # Seg Neutrophils % Seg Neuts % (Manual) Lymphocytes % (Manual) Nucleated RBC % Seg Neutrophils # Seg Neutrophils # Man Lymphocytes # (Manual) D-Dimer POC ABG pH 7.483 H POC ABG pCO2 33.4 L POC ABG pO2 51 L 74 L VBG pH Sodium Potassium Chloride Carbon Dioxide BUN Creatinine Glucose POC Glucose Hemoglobin A1c Lactic Acid Calcium Phosphorus Magnesium AST ALT Troponin T C-Reactive Protein Total Protein Albumin Triglycerides LDL Cholesterol Direct HDL Cholesterol Urine WBC (Auto) Salicylates Acetaminophen % CD3 Cells 44 L % CD19 Cells 41 H Absolute CD19 Count 1290 H Miscellaneous Test Crossmatch 08/20/18 08/21/18 08/21/18 05:25 03:54 05:45 WBC 24.1 H RBC 2.83 L Hgb 8.8 L Hct 26.7 L RDW 15.7 H Plt Count 127 L Lymph % (Auto) [place] % (Auto) Lymph # [place] # Seg Neutrophils % Seg Neuts % (Manual) 94.0 H Lymphocytes % (Manual) 4.0 L Nucleated RBC % 1.0 H Seg Neutrophils # Seg Neutrophils # Man 22.7 H Lymphocytes # (Manual) 1.0 L D-Dimer POC ABG pH POC ABG pCO2 31.9 L POC ABG pO2 66 L VBG pH Sodium 146 H D Potassium Chloride 111.2 H Carbon Dioxide BUN 24 H Creatinine Glucose 141 H POC Glucose Hemoglobin A1c Lactic Acid Calcium 8.1 L Phosphorus Magnesium AST 65 H ALT 104 H Troponin T C-Reactive Protein Total Protein 6.2 L Albumin 2.6 L Triglycerides LDL Cholesterol Direct HDL Cholesterol Urine WBC (Auto) Salicylates Acetaminophen % CD3 Cells % CD19 Cells Absolute CD19 Count Miscellaneous Test Crossmatch 08/21/18 08/22/18 08/22/18 05:45 06:20 06:45 WBC RBC Hgb Hct RDW Plt Count Lymph % (Auto) [place] % (Auto) Lymph # [place] # Seg Neutrophils % Seg Neuts % (Manual) Lymphocytes % (Manual) Nucleated RBC % Seg Neutrophils # Seg Neutrophils # Man Lymphocytes # (Manual) D-Dimer POC ABG pH POC ABG pCO2 32.9 L POC ABG pO2 VBG pH Sodium Potassium 3.5 L Chloride 109.4 H 112.4 H Carbon Dioxide 21 L 20 L BUN 50 H 61 H Creatinine 2.0 H D 1.9 H Glucose 144 H 154 H POC Glucose Hemoglobin A1c Lactic Acid Calcium 7.6 L 7.8 L Phosphorus Magnesium AST ALT Troponin T C-Reactive Protein Total Protein 5.3 L Albumin 2.1 L Triglycerides LDL Cholesterol Direct HDL Cholesterol Urine WBC (Auto) Salicylates Acetaminophen % CD3 Cells % CD19 Cells Absolute CD19 Count Miscellaneous Test Crossmatch 08/22/18 08/22/18 08/22/18 06:45 15:29 18:40 WBC RBC Hgb Hct RDW Plt Count Lymph % (Auto) [place] % (Auto) Lymph # [place] # Seg Neutrophils % Seg Neuts % (Manual) Lymphocytes % (Manual) Nucleated RBC % Seg Neutrophils # Seg Neutrophils # Man Lymphocytes # (Manual) D-Dimer POC ABG pH POC ABG pCO2 POC ABG pO2 VBG pH Sodium Potassium Chloride Carbon Dioxide BUN Creatinine Glucose POC Glucose 169 H Hemoglobin A1c Lactic Acid Calcium Phosphorus Magnesium AST ALT Troponin T C-Reactive Protein 4.70 H Total Protein Albumin Triglycerides 197 H LDL Cholesterol Direct HDL Cholesterol Urine WBC (Auto) Salicylates Acetaminophen % CD3 Cells % CD19 Cells Absolute CD19 Count Miscellaneous Test Crossmatch 08/23/18 08/23/18 08/23/18 03:59 21:19 Unknown WBC 12.1 H RBC 2.29 L Hgb 7.1 L Hct 21.7 L RDW 15.7 H Plt Count 106 L Lymph % (Auto) [place] % (Auto) Lymph # [place] # Seg Neutrophils % Seg Neuts % (Manual) 92.0 H Lymphocytes % (Manual) 4.0 L Nucleated RBC % Seg Neutrophils # Seg Neutrophils # Man 11.1 H Lymphocytes # (Manual) 0.5 L D-Dimer POC ABG pH 7.306 L POC ABG pCO2 31.3 L POC ABG pO2 119 H 75 L VBG pH Sodium Potassium Chloride Carbon Dioxide BUN Creatinine Glucose POC Glucose Hemoglobin A1c Lactic Acid Calcium Phosphorus Magnesium AST ALT Troponin T C-Reactive Protein Total Protein Albumin Triglycerides LDL Cholesterol Direct HDL Cholesterol Urine WBC (Auto) Salicylates Acetaminophen % CD3 Cells % CD19 Cells Absolute CD19 Count Miscellaneous Test Crossmatch 08/23/18 08/24/18 08/24/18 Unknown 04:18 08:30 WBC 12.8 H RBC 2.24 L Hgb 7.0 L Hct 21.1 L RDW Plt Count Lymph % (Auto) [place] % (Auto) Lymph # [place] # Seg Neutrophils % Seg Neuts % (Manual) 93.0 H Lymphocytes % (Manual) 6.0 L Nucleated RBC % Seg Neutrophils # Seg Neutrophils # Man 11.9 H Lymphocytes # (Manual) 0.8 L D-Dimer POC ABG pH POC ABG pCO2 POC ABG pO2 78 L VBG pH Sodium Potassium Chloride 115.7 H Carbon Dioxide 21 L BUN 64 H Creatinine 2.0 H Glucose 149 H POC Glucose Hemoglobin A1c Lactic Acid Calcium 7.5 L Phosphorus Magnesium AST ALT Troponin T C-Reactive Protein Total Protein 4.8 L Albumin 2.0 L Triglycerides LDL Cholesterol Direct HDL Cholesterol Urine WBC (Auto) Salicylates Acetaminophen % CD3 Cells % CD19 Cells Absolute CD19 Count Miscellaneous Test Crossmatch 08/24/18 08/24/18 08/24/18 08:30 17:44 18:28 WBC RBC Hgb Hct RDW Plt Count Lymph % (Auto) [place] % (Auto) Lymph # [place] # Seg Neutrophils % Seg Neuts % (Manual) Lymphocytes % (Manual) Nucleated RBC % Seg Neutrophils # Seg Neutrophils # Man Lymphocytes # (Manual) D-Dimer POC ABG pH 7.474 H POC ABG pCO2 POC ABG pO2 61 L VBG pH Sodium Potassium Chloride 108.3 H Carbon Dioxide 20 L BUN 65 H Creatinine 2.0 H Glucose 167 H POC Glucose 164 H Hemoglobin A1c Lactic Acid Calcium 7.7 L Phosphorus Magnesium AST ALT Troponin T C-Reactive Protein Total Protein 5.3 L Albumin 2.2 L Triglycerides LDL Cholesterol Direct HDL Cholesterol Urine WBC (Auto) Salicylates Acetaminophen % CD3 Cells % CD19 Cells Absolute CD19 Count Miscellaneous Test Crossmatch 08/25/18 08/25/18 08/25/18 03:35 05:20 05:20 WBC RBC Hgb 6.7 L Hct 21.0 L RDW Plt Count Lymph % (Auto) [place] % (Auto) Lymph # [place] # Seg Neutrophils % Seg Neuts % (Manual) Lymphocytes % (Manual) Nucleated RBC % Seg Neutrophils # Seg Neutrophils # Man Lymphocytes # (Manual) D-Dimer POC ABG pH POC ABG pCO2 POC ABG pO2 79 L VBG pH Sodium Potassium Chloride Carbon Dioxide 21 L BUN 71 H Creatinine 3.1 H D Glucose 171 H POC Glucose Hemoglobin A1c Lactic Acid Calcium 7.5 L Phosphorus Magnesium AST ALT Troponin T C-Reactive Protein Total Protein Albumin Triglycerides LDL Cholesterol Direct HDL Cholesterol Urine WBC (Auto) Salicylates Acetaminophen % CD3 Cells % CD19 Cells Absolute CD19 Count Miscellaneous Test Crossmatch 08/25/18 08/25/18 08/25/18 05:20 08:52 12:42 WBC RBC Hgb Hct RDW Plt Count Lymph % (Auto) [place] % (Auto) Lymph # [place] # Seg Neutrophils % Seg Neuts % (Manual) Lymphocytes % (Manual) Nucleated RBC % Seg Neutrophils # Seg Neutrophils # Man Lymphocytes # (Manual) D-Dimer POC ABG pH POC ABG pCO2 POC ABG pO2 VBG pH Sodium Potassium Chloride Carbon Dioxide BUN Creatinine Glucose POC Glucose 166 H Hemoglobin A1c Lactic Acid Calcium Phosphorus Magnesium AST ALT Troponin T C-Reactive Protein 5.00 H Total Protein Albumin Triglycerides LDL Cholesterol Direct HDL Cholesterol Urine WBC (Auto) Salicylates Acetaminophen % CD3 Cells % CD19 Cells Absolute CD19 Count Miscellaneous Test Crossmatch See Detail 08/25/18 08/26/18 08/26/18 18:05 00:13 04:53 WBC RBC Hgb Hct RDW Plt Count Lymph % (Auto) [place] % (Auto) Lymph # [place] # Seg Neutrophils % Seg Neuts % (Manual) Lymphocytes % (Manual) Nucleated RBC % Seg Neutrophils # Seg Neutrophils # Man Lymphocytes # (Manual) D-Dimer POC ABG pH POC ABG pCO2 30.9 L POC ABG pO2 70 L VBG pH Sodium Potassium Chloride Carbon Dioxide BUN Creatinine Glucose POC Glucose 121 H 164 H Hemoglobin A1c Lactic Acid Calcium Phosphorus Magnesium AST ALT Troponin T C-Reactive Protein Total Protein Albumin Triglycerides LDL Cholesterol Direct HDL Cholesterol Urine WBC (Auto) Salicylates Acetaminophen % CD3 Cells % CD19 Cells Absolute CD19 Count Miscellaneous Test Crossmatch 08/26/18 08/26/18 08/26/18 05:42 06:00 06:00 WBC RBC 2.62 L Hgb 7.7 L Hct 23.0 L RDW 22.0 H Plt Count Lymph % (Auto) 6.3 L [place] % (Auto) Lymph # 0.7 L [place] # Seg Neutrophils % 88.1 H Seg Neuts % (Manual) Lymphocytes % (Manual) Nucleated RBC % Seg Neutrophils # 9.6 H Seg Neutrophils # Man Lymphocytes # (Manual) D-Dimer POC ABG pH POC ABG pCO2 POC ABG pO2 VBG pH Sodium Potassium Chloride Carbon Dioxide 21 L BUN 70 H Creatinine 3.3 H Glucose 146 H POC Glucose 149 H Hemoglobin A1c Lactic Acid Calcium 8.0 L Phosphorus Magnesium AST ALT Troponin T C-Reactive Protein Total Protein Albumin Triglycerides LDL Cholesterol Direct HDL Cholesterol Urine WBC (Auto) Salicylates Acetaminophen % CD3 Cells % CD19 Cells Absolute CD19 Count Miscellaneous Test Crossmatch 08/26/18 08/26/18 08/27/18 11:37 23:54 04:35 WBC RBC 2.50 L Hgb 7.6 L Hct 22.3 L RDW 21.8 H Plt Count Lymph % (Auto) 7.3 L [place] % (Auto) Lymph # 0.7 L [place] # Seg Neutrophils % 85.6 H Seg Neuts % (Manual) Lymphocytes % (Manual) Nucleated RBC % Seg Neutrophils # 8.6 H Seg Neutrophils # Man Lymphocytes # (Manual) D-Dimer POC ABG pH POC ABG pCO2 POC ABG pO2 VBG pH Sodium Potassium Chloride Carbon Dioxide BUN Creatinine Glucose POC Glucose 183 H 150 H Hemoglobin A1c Lactic Acid Calcium Phosphorus Magnesium AST ALT Troponin T C-Reactive Protein Total Protein Albumin Triglycerides LDL Cholesterol Direct HDL Cholesterol Urine WBC (Auto) Salicylates Acetaminophen % CD3 Cells % CD19 Cells Absolute CD19 Count Miscellaneous Test Crossmatch 08/27/18 08/27/18 08/28/18 04:35 12:17 04:43 WBC RBC Hgb Hct RDW Plt Count Lymph % (Auto) [place] % (Auto) Lymph # [place] # Seg Neutrophils % Seg Neuts % (Manual) Lymphocytes % (Manual) Nucleated RBC % Seg Neutrophils # Seg Neutrophils # Man Lymphocytes # (Manual) D-Dimer POC ABG pH POC ABG pCO2 32.1 L 33.8 L POC ABG pO2 68 L 78 L VBG pH Sodium Potassium Chloride Carbon Dioxide 19 L BUN 67 H Creatinine 2.9 H Glucose 155 H POC Glucose Hemoglobin A1c Lactic Acid Calcium Phosphorus 4.70 H Magnesium AST ALT Troponin T C-Reactive Protein Total Protein Albumin Triglycerides LDL Cholesterol Direct HDL Cholesterol Urine WBC (Auto) Salicylates Acetaminophen % CD3 Cells % CD19 Cells Absolute CD19 Count Miscellaneous Test Crossmatch 08/28/18 08/28/18 08/28/18 05:03 05:20 05:20 WBC RBC 2.43 L Hgb 7.4 L Hct 21.8 L RDW 20.8 H Plt Count Lymph % (Auto) 7.6 L [place] % (Auto) 8.7 H Lymph # 0.7 L [place] # Seg Neutrophils % 82.9 H Seg Neuts % (Manual) Lymphocytes % (Manual) Nucleated RBC % Seg Neutrophils # Seg Neutrophils # Man Lymphocytes # (Manual) D-Dimer POC ABG pH POC ABG pCO2 POC ABG pO2 VBG pH Sodium Potassium Chloride 107.8 H Carbon Dioxide 21 L BUN 55 H Creatinine 2.0 H Glucose 177 H POC Glucose 160 H Hemoglobin A1c Lactic Acid Calcium Phosphorus Magnesium AST ALT Troponin T C-Reactive Protein Total Protein Albumin Triglycerides LDL Cholesterol Direct HDL Cholesterol Urine WBC (Auto) Salicylates Acetaminophen % CD3 Cells % CD19 Cells Absolute CD19 Count Miscellaneous Test Crossmatch 08/28/18 08/28/18 08/28/18 12:18 18:58 22:31 WBC RBC Hgb Hct RDW Plt Count Lymph % (Auto) [place] % (Auto) Lymph # [place] # Seg Neutrophils % Seg Neuts % (Manual) Lymphocytes % (Manual) Nucleated RBC % Seg Neutrophils # Seg Neutrophils # Man Lymphocytes # (Manual) D-Dimer POC ABG pH POC ABG pCO2 34.4 L POC ABG pO2 67 L VBG pH Sodium Potassium Chloride Carbon Dioxide BUN Creatinine Glucose POC Glucose 164 H 149 H Hemoglobin A1c Lactic Acid Calcium Phosphorus Magnesium AST ALT Troponin T C-Reactive Protein Total Protein Albumin Triglycerides LDL Cholesterol Direct HDL Cholesterol Urine WBC (Auto) Salicylates Acetaminophen % CD3 Cells % CD19 Cells Absolute CD19 Count Miscellaneous Test Crossmatch 08/28/18 08/29/18 08/29/18 23:33 05:25 05:25 WBC RBC 2.30 L Hgb 7.0 L Hct 20.9 L RDW 21.0 H Plt Count Lymph % (Auto) 11.5 L [place] % (Auto) 9.2 H Lymph # 0.8 L [place] # Seg Neutrophils % 78.8 H Seg Neuts % (Manual) Lymphocytes % (Manual) Nucleated RBC % Seg Neutrophils # Seg Neutrophils # Man Lymphocytes # (Manual) D-Dimer POC ABG pH POC ABG pCO2 POC ABG pO2 VBG pH Sodium Potassium Chloride 111.1 H Carbon Dioxide BUN 55 H Creatinine 1.8 H Glucose 162 H POC Glucose 143 H Hemoglobin A1c Lactic Acid Calcium Phosphorus Magnesium AST 46 H ALT < 5 L Troponin T C-Reactive Protein Total Protein 5.7 L Albumin 2.1 L Triglycerides LDL Cholesterol Direct HDL Cholesterol Urine WBC (Auto) Salicylates Acetaminophen % CD3 Cells % CD19 Cells Absolute CD19 Count Miscellaneous Test Crossmatch 08/29/18 08/29/18 08/30/18 18:19 23:35 05:03 WBC RBC Hgb Hct RDW Plt Count Lymph % (Auto) [place] % (Auto) Lymph # [place] # Seg Neutrophils % Seg Neuts % (Manual) Lymphocytes % (Manual) Nucleated RBC % Seg Neutrophils # Seg Neutrophils # Man Lymphocytes # (Manual) D-Dimer POC ABG pH POC ABG pCO2 POC ABG pO2 VBG pH Sodium Potassium Chloride Carbon Dioxide BUN Creatinine Glucose POC Glucose 155 H 139 H 122 H Hemoglobin A1c Lactic Acid Calcium Phosphorus Magnesium AST ALT Troponin T C-Reactive Protein Total Protein Albumin Triglycerides LDL Cholesterol Direct HDL Cholesterol Urine WBC (Auto) Salicylates Acetaminophen % CD3 Cells % CD19 Cells Absolute CD19 Count Miscellaneous Test Crossmatch 08/30/18 08/30/18 08/30/18 09:33 09:33 09:54 WBC RBC 2.58 L Hgb 7.9 L Hct 23.5 L RDW 20.9 H Plt Count Lymph % (Auto) 8.0 L [place] % (Auto) 9.7 H Lymph # 0.8 L [place] # 1.0 H Seg Neutrophils % 82.1 H Seg Neuts % (Manual) Lymphocytes % (Manual) Nucleated RBC % Seg Neutrophils # 8.2 H Seg Neutrophils # Man Lymphocytes # (Manual) D-Dimer POC ABG pH POC ABG pCO2 POC ABG pO2 VBG pH Sodium 146 H Potassium Chloride 110.7 H Carbon Dioxide BUN 56 H Creatinine 1.9 H Glucose 145 H POC Glucose Hemoglobin A1c Lactic Acid Calcium Phosphorus 4.60 H Magnesium AST ALT < 5 L Troponin T C-Reactive Protein Total Protein Albumin 2.7 L Triglycerides LDL Cholesterol Direct HDL Cholesterol Urine WBC (Auto) Salicylates Acetaminophen % CD3 Cells % CD19 Cells Absolute CD19 Count Miscellaneous Test Flexitest 1 H Crossmatch 08/30/18 08/30/18 08/30/18 09:57 11:26 18:08 WBC RBC Hgb Hct RDW Plt Count Lymph % (Auto) [place] % (Auto) Lymph # [place] # Seg Neutrophils % Seg Neuts % (Manual) Lymphocytes % (Manual) Nucleated RBC % Seg Neutrophils # Seg Neutrophils # Man Lymphocytes # (Manual) D-Dimer POC ABG pH POC ABG pCO2 POC ABG pO2 VBG pH Sodium Potassium Chloride Carbon Dioxide BUN Creatinine Glucose POC Glucose 149 H 156 H Hemoglobin A1c Lactic Acid Calcium Phosphorus Magnesium AST ALT Troponin T C-Reactive Protein Total Protein Albumin Triglycerides LDL Cholesterol Direct HDL Cholesterol Urine WBC (Auto) Salicylates Acetaminophen % CD3 Cells % CD19 Cells Absolute CD19 Count Miscellaneous Test Flexitest 1 H Crossmatch 08/30/18 08/31/18 08/31/18 23:14 05:16 08:40 WBC RBC Hgb Hct RDW Plt Count Lymph % (Auto) [place] % (Auto) Lymph # [place] # Seg Neutrophils % Seg Neuts % (Manual) Lymphocytes % (Manual) Nucleated RBC % Seg Neutrophils # Seg Neutrophils # Man Lymphocytes # (Manual) D-Dimer POC ABG pH POC ABG pCO2 POC ABG pO2 VBG pH Sodium 151 H Potassium Chloride 113.8 H Carbon Dioxide BUN 45 H Creatinine Glucose 144 H POC Glucose 117 H 133 H Hemoglobin A1c Lactic Acid Calcium Phosphorus Magnesium AST ALT Troponin T C-Reactive Protein Total Protein Albumin Triglycerides LDL Cholesterol Direct HDL Cholesterol Urine WBC (Auto) Salicylates Acetaminophen % CD3 Cells % CD19 Cells Absolute CD19 Count Miscellaneous Test Crossmatch 08/31/18 09/01/18 09/01/18 23:46 04:45 04:45 WBC RBC 2.38 L Hgb 7.3 L Hct 22.1 L RDW 21.1 H Plt Count Lymph % (Auto) [place] % (Auto) Lymph # [place] # Seg Neutrophils % Seg Neuts % (Manual) 93.0 H Lymphocytes % (Manual) 4.0 L Nucleated RBC % Seg Neutrophils # Seg Neutrophils # Man 10.1 H Lymphocytes # (Manual) 0.4 L D-Dimer POC ABG pH POC ABG pCO2 POC ABG pO2 VBG pH Sodium 156 H Potassium 3.1 L Chloride 115.2 H Carbon Dioxide BUN 34 H Creatinine Glucose 125 H POC Glucose 124 H Hemoglobin A1c Lactic Acid Calcium Phosphorus Magnesium AST ALT Troponin T C-Reactive Protein Total Protein Albumin Triglycerides LDL Cholesterol Direct HDL Cholesterol Urine WBC (Auto) Salicylates Acetaminophen % CD3 Cells % CD19 Cells Absolute CD19 Count Miscellaneous Test Crossmatch 09/01/18 09/01/18 09/01/18 05:34 11:20 17:52 WBC RBC Hgb Hct RDW Plt Count Lymph % (Auto) [place] % (Auto) Lymph # [place] # Seg Neutrophils % Seg Neuts % (Manual) Lymphocytes % (Manual) Nucleated RBC % Seg Neutrophils # Seg Neutrophils # Man Lymphocytes # (Manual) D-Dimer POC ABG pH 7.553 H POC ABG pCO2 POC ABG pO2 74 L VBG pH Sodium Potassium Chloride Carbon Dioxide BUN Creatinine Glucose POC Glucose 128 H 146 H Hemoglobin A1c Lactic Acid Calcium Phosphorus Magnesium AST ALT Troponin T C-Reactive Protein Total Protein Albumin Triglycerides LDL Cholesterol Direct HDL Cholesterol Urine WBC (Auto) Salicylates Acetaminophen % CD3 Cells % CD19 Cells Absolute CD19 Count Miscellaneous Test Crossmatch 09/01/18 09/02/18 09/02/18 17:52 04:13 04:58 WBC 16.4 H RBC 2.64 L Hgb 7.9 L Hct 24.3 L RDW 20.8 H Plt Count Lymph % (Auto) [place] % (Auto) Lymph # [place] # Seg Neutrophils % Seg Neuts % (Manual) 96.0 H Lymphocytes % (Manual) 1.0 L Nucleated RBC % Seg Neutrophils # Seg Neutrophils # Man 15.7 H Lymphocytes # (Manual) 0.2 L D-Dimer POC ABG pH 7.488 H POC ABG pCO2 POC ABG pO2 63 L VBG pH Sodium Potassium Chloride Carbon Dioxide BUN Creatinine Glucose POC Glucose 143 H Hemoglobin A1c Lactic Acid Calcium Phosphorus Magnesium AST ALT Troponin T C-Reactive Protein Total Protein Albumin Triglycerides LDL Cholesterol Direct HDL Cholesterol Urine WBC (Auto) Salicylates Acetaminophen % CD3 Cells % CD19 Cells Absolute CD19 Count Miscellaneous Test Crossmatch 09/02/18 09/02/18 09/02/18 04:58 11:03 18:18 WBC RBC Hgb Hct RDW Plt Count Lymph % (Auto) [place] % (Auto) Lymph # [place] # Seg Neutrophils % Seg Neuts % (Manual) Lymphocytes % (Manual) Nucleated RBC % Seg Neutrophils # Seg Neutrophils # Man Lymphocytes # (Manual) D-Dimer POC ABG pH 7.344 L POC ABG pCO2 52.8 H POC ABG pO2 VBG pH Sodium 158 H Potassium 2.9 L* Chloride 115.7 H Carbon Dioxide BUN 27 H Creatinine 0.6 L Glucose 128 H POC Glucose 121 H Hemoglobin A1c Lactic Acid Calcium Phosphorus Magnesium 1.60 L AST 64 H ALT Troponin T C-Reactive Protein Total Protein Albumin 2.6 L Triglycerides LDL Cholesterol Direct HDL Cholesterol Urine WBC (Auto) Salicylates Acetaminophen % CD3 Cells % CD19 Cells Absolute CD19 Count Miscellaneous Test Crossmatch 09/02/18 09/03/18 09/03/18 23:06 03:36 04:25 WBC RBC 2.20 L Hgb 6.7 L Hct 20.9 L RDW 21.1 H Plt Count Lymph % (Auto) [place] % (Auto) Lymph # [place] # Seg Neutrophils % Seg Neuts % (Manual) 90.0 H Lymphocytes % (Manual) 5.0 L Nucleated RBC % Seg Neutrophils # Seg Neutrophils # Man 8.7 H Lymphocytes # (Manual) 0.5 L D-Dimer POC ABG pH POC ABG pCO2 POC ABG pO2 54 L VBG pH Sodium Potassium Chloride Carbon Dioxide BUN Creatinine Glucose POC Glucose 121 H Hemoglobin A1c Lactic Acid Calcium Phosphorus Magnesium AST ALT Troponin T C-Reactive Protein Total Protein Albumin Triglycerides LDL Cholesterol Direct HDL Cholesterol Urine WBC (Auto) Salicylates Acetaminophen % CD3 Cells % CD19 Cells Absolute CD19 Count Miscellaneous Test Crossmatch 09/03/18 09/03/18 09/03/18 04:25 05:45 10:24 WBC RBC Hgb Hct RDW Plt Count Lymph % (Auto) [place] % (Auto) Lymph # [place] # Seg Neutrophils % Seg Neuts % (Manual) Lymphocytes % (Manual) Nucleated RBC % Seg Neutrophils # Seg Neutrophils # Man Lymphocytes # (Manual) D-Dimer POC ABG pH POC ABG pCO2 POC ABG pO2 VBG pH Sodium 158 H Potassium 3.1 L Chloride 120.4 H Carbon Dioxide BUN 25 H Creatinine 0.6 L Glucose 127 H POC Glucose 178 H Hemoglobin A1c Lactic Acid Calcium 7.9 L Phosphorus Magnesium AST ALT Troponin T C-Reactive Protein Total Protein 6.0 L Albumin 2.4 L Triglycerides LDL Cholesterol Direct HDL Cholesterol Urine WBC (Auto) Salicylates Acetaminophen % CD3 Cells % CD19 Cells Absolute CD19 Count Miscellaneous Test Crossmatch See Detail 09/03/18 11:27 WBC RBC Hgb Hct RDW Plt Count Lymph % (Auto) [place] % (Auto) Lymph # [place] # Seg Neutrophils % Seg Neuts % (Manual) Lymphocytes % (Manual) Nucleated RBC % Seg Neutrophils # Seg Neutrophils # Man Lymphocytes # (Manual) D-Dimer POC ABG pH POC ABG pCO2 POC ABG pO2 VBG pH Sodium Potassium Chloride Carbon Dioxide BUN Creatinine Glucose POC Glucose 107 H Hemoglobin A1c Lactic Acid Calcium Phosphorus Magnesium AST ALT Troponin T C-Reactive Protein Total Protein Albumin Triglycerides LDL Cholesterol Direct HDL Cholesterol Urine WBC (Auto) Salicylates Acetaminophen % CD3 Cells % CD19 Cells Absolute CD19 Count Miscellaneous Test Crossmatch Chest x-ray: image reviewed Allied health notes reviewed: RT
[2018-09-03] MEDS: DIURIL 500 MG in NACL 0.9% 50 ML IV SCH (22:00)
[2018-09-04] MEDS: fentaNYL DRIP Premix 2,000 MCG/100 ML BAG IV SCH ×5 (00:50→18:41)
[2018-09-04] MEDS: DUONEB *Not for PRN Use IH SCH ×4 (02:23→19:19)
[2018-09-04] MEDS: VANCOMYCIN 1,500 MG in NACL 0.9% 500 ML 500 ML IV SCH ×2 (03:29→17:30)
[2018-09-04] MEDS: APRESOLINE PO SCH ×3 (05:23→21:48)
[2018-09-04] MEDS: MORPHINE PO SCH ×3 (05:26→13:20)
[2018-09-04] MEDS: D5W IV SCH ×2 (06:42→09:36)
[2018-09-04] MEDS: NACL IV SCH ×2 (06:42→09:36)
[2018-09-04] MEDS: KCL IV SCH ×2 (06:42→09:36)
[2018-09-04 07:00] LABS: Basophils # (Auto) 0.1 K/mm3 (0.0-0.1); Basophils % (Auto) 0.7 % (0.0-1.8); Hematocrit 21.9 % (30.3-42.9); Lymphocytes # (Auto) 1.6 K/mm3 (1.2-5.4); Lymphocytes % (Auto) 15.3 % (13.4-35.0); Mean Corpuscular HGB Conc 32 % (30-34); Mean Corpuscular Volume 94 fl (79-97); Monocytes # (Auto) 0.4 K/mm3 (0.0-0.8); Monocytes % (Auto) 3.9 % (0.0-7.3); Platelet Count 165 K/mm3 (140-440); Red Blood Count 2.32 M/mm3 (3.65-5.03)
[2018-09-04 07:12] LABS: Red Cell Distribution Width 20.2 % (13.2-15.2)
[2018-09-04 07:17] LABS: BUN/Creatinine Ratio 35; Blood Urea Nitrogen 21 mg/dL (7-17); Calcium 7.9 mg/dL (8.4-10.2); Hemolysis Index 4
[2018-09-04] MEDS: PULMICORT IH SCH ×2 (07:30→19:19)
[2018-09-04] MEDS: BROVANA NEBU IH SCH ×2 (07:30→19:19)
[2018-09-04] MEDS ORDERED: MAGNESIUM SULFATE 2GM/50ML 2 GM/50 ML BAG IV ONE (08:02)
--- NOTE | 2018-09-04 08:09 | Progress Note ---
Assessment and Plan Assessment and plan: --Febrile illness; patient spiked fever this morning Already on antibiotics, wade cultures, chest x-ray Supportive care, ID following --Hypomagnesemia; replace with 2 g mag sulfate, follow levels --Hypernatremia; sodium improved from 158-150, free water flushes --Acute hypoxic hypercapnic respiratory failure; extubated 08/29/18 Re Intubated 09/02/18 secondary to acute respiratory failure .n vent Status post bronchoscopy, findings reviewed, BAL sent for histopathology nebulizers, IV antibiotics, pulmonary critical following --Anemia; received total 2 unit of PRBC ,Hb 7.0 today --Left lower extremity DVT; anticoagulation with Lovenox Check CTA chest to rule out PE --Sepsis; secondary to aspiration pneumonia, --Aspiration pneumonia; on micafungin, ID again started cefepime and Vanco --Hypertension; continue current antihypertensives --Severe malnutrition/hypoalbuminemia; Nutrition consults and supportive care --Acute kidney injury; probably secondary to ATN avoid nephrotoxins, Nephrology following --Acute systolic congestive heart failure; Ejection fraction 25-30%, continue current management Cardiology following --Elevated Transaminases; resolved --DVT prophylaxis; Lovenox Consults and recommendations noted and appreciated Plan of care reviewed with the patient's nurse The high probability of a clinically significant, sudden or life threatening deterioration of the [respiratory, cardiology, ID, renal and metabolic] system(s) required my full and direct attention, intervention and personal management. The aggregate critical care time was [33] minutes. This time is in addition to time spent performing reported procedures but includes the following: [x] Data Review and interpretation [x] Patient assessment and monitoring of vital signs [x] Documentation [x] Medication orders and management History Interval history: Patient seen and examined medical records reviewed Spiked fever this morning Remains intubated on ventilator support In mild distress, vital signs noted Hospitalist Physical - Constitutional Vitals: Temp Pulse Resp BP Pulse Ox 99.8 F H 88 27 H 106/51 100 09/04/18 04:00 09/04/18 06:15 09/04/18 06:26 09/04/18 06:15 09/04/18 06:15 General appearance: Present: mild distress, well-nourished, other (intubated on vent) - EENT Eyes: Present: PERRL, EOM intact - Neck Neck: Present: supple, normal ROM - Respiratory Respiratory effort: normal Respiratory: bilateral: diminished, negative: rales, rhonchi, wheezing - Cardiovascular Rhythm: regular Heart Sounds: Present: S1 & S2 - Extremities Extremities: no ischemia, No edema - Abdominal General gastrointestinal: soft, non-tender, non-distended, normal bowel sounds - Integumentary Integumentary: Present: clear, warm - Psychiatric Psychiatric: other (intubated on vent) - Neurologic Neurologic: other (on vent) Results - Labs CBC & Chem 7: 09/04/18 06:30 09/04/18 06:30 Labs: Laboratory Last Values WBC 10.3 K/mm3 (4.5-11.0) 09/04/18 06:30 RBC 2.32 M/mm3 (3.65-5.03) L 09/04/18 06:30 Hgb 7.0 gm/dl (10.1-14.3) L 09/04/18 06:30 Hct 21.9 % (30.3-42.9) L 09/04/18 06:30 MCV 94 fl (79-97) 09/04/18 06:30 MCH 30 pg (28-32) 09/04/18 06:30 MCHC 32 % (30-34) 09/04/18 06:30 RDW 20.2 % (13.2-15.2) H 09/04/18 06:30 Plt Count 165 K/mm3 (140-440) 09/04/18 06:30 Lymph % (Auto) 15.3 % (13.4-35.0) 09/04/18 06:30 Mckinley % (Auto) 3.9 % (0.0-7.3) 09/04/18 06:30 Eos % (Auto) 0.0 % (0.0-4.3) 09/04/18 06:30 Baso % (Auto) 0.7 % (0.0-1.8) 09/04/18 06:30 Lymph # 1.6 K/mm3 (1.2-5.4) 09/04/18 06:30 Mckinley # 0.4 K/mm3 (0.0-0.8) 09/04/18 06:30 Eos # 0.0 K/mm3 (0.0-0.4) 09/04/18 06:30 Baso # 0.1 K/mm3 (0.0-0.1) 09/04/18 06:30 Add Manual Diff Complete 09/03/18 04:25 Total Counted 100 09/03/18 04:25 Seg Neutrophils % 80.1 % (40.0-70.0) H 09/04/18 06:30 Seg Neuts % (Manual) 90.0 % (40.0-70.0) H 09/03/18 04:25 Band Neutrophils % 1.0 % 09/03/18 04:25 Lymphocytes % (Manual) 5.0 % (13.4-35.0) L 09/03/18 04:25 Reactive Lymphs % (Man) 0 % 09/03/18 04:25 Monocytes % (Manual) 3.0 % (0.0-7.3) 09/03/18 04:25 Eosinophils % (Manual) 0 % (0.0-4.3) 09/03/18 04:25 Basophils % (Manual) 0 % (0.0-1.8) 09/03/18 04:25 Metamyelocytes % 0 % 09/03/18 04:25 Myelocytes % 1.0 % 09/03/18 04:25 Promyelocytes % 0 % 09/03/18 04:25 Blast Cells % 0 % 09/03/18 04:25 Nucleated RBC % Not Reportable 09/03/18 04:25 Seg Neutrophils # 8.2 K/mm3 (1.8-7.7) H 09/04/18 06:30 Seg Neutrophils # Man 8.7 K/mm3 (1.8-7.7) H 09/03/18 04:25 Band Neutrophils # 0.1 K/mm3 09/03/18 04:25 Abs Lymphs (Manual) 3262 cells/uL (850-3900) 08/19/18 14:32 Lymphocytes # (Manual) 0.5 K/mm3 (1.2-5.4) L 09/03/18 04:25 Abs React Lymphs (Man) 0.0 K/mm3 09/03/18 04:25 Monocytes # (Manual) 0.3 K/mm3 (0.0-0.8) 09/03/18 04:25 Eosinophils # (Manual) 0.0 K/mm3 (0.0-0.4) 09/03/18 04:25 Basophils # (Manual) 0.0 K/mm3 (0.0-0.1) 09/03/18 04:25 Metamyelocytes # 0.0 K/mm3 09/03/18 04:25 Myelocytes # 0.1 K/mm3 09/03/18 04:25 Promyelocytes # 0.0 K/mm3 09/03/18 04:25 Blast Cells # 0.0 K/mm3 09/03/18 04:25 WBC Morphology Not Reportable 09/03/18 04:25 Hypersegmented Neuts Not Reportable 09/03/18 04:25 Hyposegmented Neuts Not Reportable 09/03/18 04:25 Hypogranular Neuts Not Reportable 09/03/18 04:25 Smudge Cells Not Reportable 09/03/18 04:25 Toxic Granulation Not Reportable 09/03/18 04:25 Toxic Vacuolation Not Reportable 09/03/18 04:25 Dohle Bodies Not Reportable 09/03/18 04:25 Pelger-Huet Anomaly Not Reportable 09/03/18 04:25 Rosy Rods Not Reportable 09/03/18 04:25 Platelet Estimate Consistent w auto 09/03/18 04:25 Clumped Platelets Not Reportable 09/03/18 04:25 Plt Clumps, EDTA Not Reportable 09/03/18 04:25 Large Platelets Not Reportable 09/03/18 04:25 Giant Platelets Not Reportable 09/03/18 04:25 Platelet Satelliting Not Reportable 09/03/18 04:25 Plt Morphology Comment Not Reportable 09/03/18 04:25 RBC Morphology Not Reportable 09/03/18 04:25 Dimorphic RBCs Not Reportable 09/03/18 04:25 Polychromasia Not Reportable 09/03/18 04:25 Hypochromasia 1+ 09/03/18 04:25 Poikilocytosis 1+ 09/03/18 04:25 Anisocytosis 1+ 09/03/18 04:25 Microcytosis Not Reportable 09/03/18 04:25 Macrocytosis Not Reportable 09/03/18 04:25 Spherocytes Not Reportable 09/03/18 04:25 Pappenheimer Bodies Not Reportable 09/03/18 04:25 Sickle Cells Not Reportable 09/03/18 04:25 Target Cells Not Reportable 09/03/18 04:25 Tear Drop Cells Not Reportable 09/03/18 04:25 Ovalocytes Not Reportable 09/03/18 04:25 Helmet Cells Not Reportable 09/03/18 04:25 Hernandez-[place] Bodies Not Reportable 09/03/18 04:25 [place] Rings Not Reportable 09/03/18 04:25 Bertha Cells Not Reportable 09/03/18 04:25 Bite Cells Not Reportable 09/03/18 04:25 Crenated Cell Not Reportable 09/03/18 04:25 Elliptocytes Not Reportable 09/03/18 04:25 Acanthocytes (Spur) Not Reportable 09/03/18 04:25 Rouleaux Not Reportable 09/03/18 04:25 Hemoglobin C Crystals Not Reportable 09/03/18 04:25 Schistocytes Not Reportable 09/03/18 04:25 Malaria parasites Not Reportable 09/03/18 04:25 Ceasar Bodies Not Reportable 09/03/18 04:25 Hem Pathologist Commnt No 09/03/18 04:25 D-Dimer 2768.33 ng/mlDDU (0-234) H 08/15/18 18:31 Heparin Anti-Xa, Unfract Negative (Negative) 08/22/18 15:29 POC ABG pH 7.293 (7.35-7.45) L 09/04/18 04:42 POC ABG pCO2 50.2 (35-45) H 09/04/18 04:42 POC ABG pO2 90 (80-105) 09/04/18 04:42 POC ABG HCO3 24.3 (22-26 mml/L) 09/04/18 04:42 POC ABG Total CO2 26 (23-27mmol/L) 09/04/18 04:42 POC ABG O2 Sat 96 09/04/18 04:42 POC ABG Base Excess -2 ((-2) - (+3)mmol/L) 09/04/18 04:42 VBG pH 7.187 (7.320-7.420) L* 08/15/18 18:19 FiO2 100 % 09/04/18 04:42 Sodium 150 mmol/L (137-145) H D 09/04/18 06:30 Potassium 3.8 mmol/L (3.6-5.0) D 09/04/18 06:30 Chloride 115.9 mmol/L (98-107) H 09/04/18 06:30 Carbon Dioxide 26 mmol/L (22-30) 09/04/18 06:30 Anion Gap 12 mmol/L 09/04/18 06:30 BUN 21 mg/dL (7-17) H 09/04/18 06:30 Creatinine 0.6 mg/dL (0.7-1.2) L 09/04/18 06:30 Estimated GFR > 60 ml/min 09/04/18 06:30 BUN/Creatinine Ratio 35 % 09/04/18 06:30 Glucose 125 mg/dL (65-100) H 09/04/18 06:30 POC Glucose 154 (70-105) H 09/04/18 05:00 Hemoglobin A1c 6.4 % (4-6) H 08/15/18 23:09 Lactic Acid 1.20 mmol/L (0.7-2.0) 08/22/18 15:29 Calcium 7.9 mg/dL (8.4-10.2) L 09/04/18 06:30 Phosphorus 3.20 mg/dL (2.5-4.5) 09/04/18 06:30 Magnesium 1.50 mg/dL (1.7-2.3) L 09/04/18 06:30 Total Bilirubin 0.40 mg/dL (0.1-1.2) 09/03/18 04:25 AST 33 units/L (5-40) 09/03/18 04:25 ALT 15 units/L (7-56) 09/03/18 04:25 Alkaline Phosphatase 95 units/L (35-129) 09/03/18 04:25 Troponin T 0.317 ng/mL (0.00-0.029) H* D 08/18/18 13:39 C-Reactive Protein 5.00 mg/dL (0.00-1.30) H 08/25/18 05:20 Total Protein 6.0 g/dL (6.3-8.2) L 09/03/18 04:25 Albumin 2.4 g/dL (3.9-5) L 09/03/18 04:25 Albumin/Globulin Ratio 0.7 % 09/03/18 04:25 Triglycerides 197 mg/dL (2-149) H 08/22/18 06:45 Cholesterol 87 mg/dL (50-199) 08/15/18 18:31 LDL Cholesterol Direct 4 mg/dL (50-130) L 08/15/18 18:31 HDL Cholesterol 10 mg/dL (40-59) L 08/15/18 18:31 Cholesterol/HDL Ratio 8.70 % 08/15/18 18:31 Serotonin Release Assay See scanned results 08/22/18 15:29 Total Cortisol 21.4 mcg/dL () 08/25/18 08:52 Urine Color Rosemarie (Yellow) 08/15/18 19:15 Urine Turbidity Cloudy (Clear) 08/15/18 19:15 Urine pH 5.0 (5.0-7.0) 08/15/18 19:15 Ur Specific [place] 1.025 (1.003-1.030) 08/15/18 19:15 Urine Protein 30 mg/dl mg/dL (Negative) 08/15/18 19:15 Urine Glucose (UA) Neg mg/dL (Negative) 08/15/18 19:15 Urine Ketones Neg mg/dL (Negative) 08/15/18 19:15 Urine Blood Mod (Negative) 08/15/18 19:15 Urine Nitrite Neg (Negative) 08/15/18 19:15 Urine Bilirubin Neg (Negative) 08/15/18 19:15 Urine Urobilinogen 2.0 mg/dL (<2.0) 08/15/18 19:15 Ur Leukocyte Esterase Mod (Negative) 08/15/18 19:15 Urine WBC (Auto) 17.0 /HPF (0.0-6.0) H 08/15/18 19:15 Urine RBC (Auto) 5.0 /HPF (0.0-6.0) 08/15/18 19:15 Urine WBC Clumps 2+ /HPF 08/15/18 19:15 Amorphous Crystals 1+ 08/15/18 19:15 Hyaline Casts 54 /LPF 08/15/18 19:15 Granular Casts 14 /LPF 08/15/18 19:15 Urine Mucus Few /HPF 08/15/18 19:15 Salicylates < 0.3 mg/dL (2.8-20.0) L 08/15/18 19:14 Urine Opiates Screen Presumptive positive 08/15/18 19:15 Urine Methadone Screen Presumptive negative 08/15/18 19:15 Acetaminophen < 5.0 ug/mL (10.0-30.0) L 08/15/18 19:14 Ur Barbiturates Screen Presumptive negative 08/15/18 19:15 Ur Phencyclidine Scrn Presumptive negative 08/15/18 19:15 Ur Amphetamines Screen Presumptive negative 08/15/18 19:15 U Benzodiazepines Scrn Presumptive negative 08/15/18 19:15 Urine Cocaine Screen Presumptive negative 08/15/18 19:15 U Marijuana (THC) Screen Presumptive negative 08/15/18 19:15 Drugs of Abuse Note Disclamer 08/15/18 19:15 Heparin-induced Plt Ab Negative (Negative) 08/22/18 15:29 UF Heparin High Dose 0 % Release 08/22/18 15:29 NAZIA UFH Low Dose 0.1 0 % Release 08/22/18 15:29 NAZIA UFH Low Dose 0.5 0 % Release 08/22/18 15:29 Lymph Enumerat CD4/CD8 1.98 (0.86-5.00) 08/19/18 14:32 % CD3 Cells 44 % (57-85) L 08/19/18 14:32 Absolute CD3 Count 1451 cells/uL (840-3060) 08/19/18 14:32 % CD4 Cells 30 % (30-61) 08/19/18 14:32 Absolute CD4 Count 1004 cells/uL (490-1740) 08/19/18 14:32 % CD8 Cells 15 % (12-42) 08/19/18 14:32 Absolute CD8 Count 508 cells/uL (180-1170) 08/19/18 14:32 % CD19 Cells 41 % (6-29) H 08/19/18 14:32 Absolute CD19 Count 1290 cells/uL (110-660) H 08/19/18 14:32 C. difficile Toxin A&B Negative (Negative) 08/19/18 14:00 HIV 1&2 Antibody Rapid Non react (Non React) 08/18/18 13:39 HIV P24 Antigen Non react (Non React) 08/18/18 13:39 Miscellaneous Test Flexitest 1 08/30/18 10:00 Blood Type O POSITIVE 09/03/18 10:24 Antibody Screen Negative 09/03/18 10:24 Crossmatch See Detail 09/03/18 10:24 Active Medications - Current Medications Current Medications: Generic Name Dose Route Start Last Admin Trade Name Freq PRN Reason Stop Dose Admin Acetaminophen 650 mg 08/15/18 22:12 09/03/18 16:26 Tylenol PO 650 mg Q4H PRN Administration Pain MILD(1-3)/Fever >100.5/MONDRAGON Albuterol 2.5 mg 08/17/18 17:00 Proventil IH Q3HRT PRN Shortness Of Breath Albuterol/Ipratropium 1 ampul 08/20/18 14:00 09/04/18 02:23 Duoneb *Not For Prn Use* IH 1 ampul Q6HRT LAMAR Administration Lipase/Protease/Amylase 1 each 09/02/18 10:40 Pancresam Elizabeth 10,500 Unit FEEDTUBE PRN PRN For Clogged Feeding Tube Arformoterol Tartrate 15 mcg 08/18/18 20:00 09/03/18 19:33 Brovana Nebu IH 15 mcg Q12HRT LAMAR Administration Budesonide 0.5 mg 08/18/18 20:00 09/03/18 19:33 Pulmicort IH 0.5 mg Q12HRT LAMAR Administration Carvedilol 3.125 mg 08/26/18 15:19 09/03/18 22:26 Coreg PO 3.125 mg BID LAMAR Administration Duloxetine HCl 60 mg 08/16/18 10:00 08/30/18 14:35 Cymbalta PO Not Given QDAY LAMAR Enoxaparin Sodium 100 mg 09/01/18 22:00 09/03/18 22:24 Lovenox 1 mg/kg (100 mg) 100 mg SUB-Q Administration Q12HR LAMAR Famotidine 10 mg 08/31/18 22:00 09/03/18 22:25 Pepcid PO 10 mg BID LAMAR Administration Fentanyl 50 mcg 09/02/18 10:17 Sublimaze IV Q10MIN PRN ANALGESIA Hydralazine HCl 10 mg 08/19/18 13:59 08/29/18 14:22 Apresoline IV 10 mg Q3H PRN Administration Hydralazine HCl 25 mg 09/01/18 14:00 09/04/18 05:23 Apresoline PO 25 mg Q8HR LAMAR Administration Hydrophilic Ointment 1 applic 08/15/18 21:55 09/01/18 09:07 Vaseline Lip Therapy TP 1 applic Q2HR PRN Administration Dry Lips Dexmedetomidine HCl 400 mcg/ 104 mls @ 4.956 mls/hr 09/01/18 18:00 09/03/18 15:38 Sodium Chloride IV 0 mcg/kg/hr TITRATE LAMAR 0 mls/hr Titration Protocol 0.2 MCG/KG/HR Chlorothiazide Sodium 500 mg/ 50 mls @ 200 mls/hr 09/02/18 22:00 09/03/18 22:00 Sodium Chloride IV 200 mls/hr QDAY@2200 LAMAR Administration Fentanyl Citrate 2,000 mcg in 100 mls @ 4.765 mls/hr 09/02/18 11:00 09/04/18 06:49 Fentanyl Drip Premix IV 2 mcg/kg/hr TITR LAMAR 9.53 mls/hr Administration Protocol 1 MCG/KG/HR Propofol 1,000 mg in 100 mls @ 2.859 mls/hr 09/02/18 11:00 09/03/18 12:05 Diprivan 10 Mg/Ml IV 0 mcg/kg/min TITR LAMAR 0 mls/hr Titration Protocol 5 MCG/KG/MIN Cefepime HCl 2 gm in 100 mls @ 200 mls/hr 09/02/18 15:00 09/03/18 22:25 Maxipime/Ns 2 Gm/100 Ml IV 200 mls/hr Q12HR LAMAR Administration Protocol Micafungin Sodium 100 mg/ 100 mls @ 100 mls/hr 09/02/18 15:00 09/03/18 10:31 Sodium Chloride IV 100 mls/hr QDAY LAMAR Administration Protocol Vancomycin HCl 1,500 mg/ 530 mls @ 333.333 mls/hr 09/03/18 04:00 09/04/18 03:29 Sodium Chloride IV 333.333 mls/hr Q12H LAMAR Administration Potassium Chloride 20 meq/ 1,019.625 mls @ 75 mls/hr 09/04/18 02:00 09/04/18 06:42 Sodium Chloride 38.5 meq/ IV 75 mls/hr Dextrose DIRECT LAMAR Administration Magnesium Sulfate 2 gm in 50 mls @ 25 mls/hr 09/04/18 08:02 Magnesium Sulfate 2gm/50ml IV 09/04/18 10:01 ONCE ONE Metoclopramide HCl 5 mg 08/15/18 22:50 Reglan IV Q6H PRN Nausea And Vomiting Morphine Sulfate 1 mg 08/29/18 15:29 09/01/18 16:16 Morphine IV 1 mg Q4H PRN Administration Pain, Moderate (4-6) Morphine Sulfate 30 mg 08/31/18 12:00 09/04/18 05:26 Morphine PO 30 mg Q6HR LAMAR Administration Ondansetron HCl 4 mg 08/15/18 22:12 08/31/18 17:52 Zofran IV 4 mg Q8H PRN Administration Nausea And Vomiting Simple Syrup 15 ml 09/02/18 11:24 Simple Syrup FEEDTUBE PRN PRN Hypoglycemia Simple Syrup 30 ml 09/02/18 11:24 Simple Syrup FEEDTUBE PRN PRN Hypoglycemia Sodium Bicarbonate 325 mg 09/02/18 10:40 Sodium Bicarbonate FEEDTUBE PRN PRN For Clogged Feeding Tube Sodium Chloride 10 ml 08/15/18 22:12 09/03/18 10:31 Sodium Chloride Flush Syringe 10 Ml IV 10 ml PRN PRN Administration LINE FLUSH Nutrition/Malnutrition Assess - Dietary Evaluation Nutrition/Malnutrition Findings: Nutrition Notes Start: 08/17/18 13:57 Freq: Status: Active Protocol: Document 09/02/18 10:32 MADAY (Rec: 09/02/18 10:37 MADAY [email or web address]) Nutrition Notes Need for Assessment generated from: MD Order Initial or Follow up Brief Note Current Diet Pureed Labs/Tests Na 158 BUN 27 K 2.9 Mg 1.6 Pertinent Medications Mag sulfate x 1, 20mEq KCl x 3 bags Height 5 ft 7 in Weight 95.3 kg [place] Body Weight (kg) 61.36 BMI 32.9 Subjective/Other Information RD consulted for TF. Pt re- intubated this am. Is patient on ventilator? Yes Is Patient Ambulatory and/or Out of Bed No REE-([place]-confined to bed) 0147.132 Calculation Used for Recommendations 65-70% energy needs Additional Notes Pro needs 2g/kg IBW: 123g/day Fluid needs 1ml/kcal Nutrition Intervention Nutrition Support: Vital High Protein at 55ml/hr. Provide 100ml water flush q4h until hypernatremia resolved. Kcal 1,320 Protein (gm) 116 Fluid (mL) 1,103 Goal #1 TF tolerance Goal #2 TF to meet 65-70% energy and 80-100% pro needs Follow-Up By: 09/04/18 Additional Comments F/U: new TF, vent status
[2018-09-04] MEDS: DIPRIVAN 10 MG/ML 1,000 MG/100 ML BOTTLE IV SCH (08:35)
--- NOTE | 2018-09-04 09:18 | XRay Report ---
PROCEDURE: XR CHEST 1V AP TECHNIQUE: AP portable chest radiograph HISTORY: fever/f/u pneumonia COMPARISONS: 09/02/2018 FINDINGS: Satisfactory endotracheal tube, enteric tube and right upper extremity PICC. Mild patient rotation. N o mediastinal shift. Cardiac silhouette is unchanged. No pneumothorax. Patchy bibasilar opacities, bl unting of both costophrenic angles, and diffuse interstitial prominence. Partially imaged cervical fu willard hardware. IMPRESSION: Satisfactory appearance of the patient's support apparatus without pneumothorax. Patchy bibasilar air space disease may be slightly worse compared to 09/02/2018. This document is electronically signed by Joaquin Sepulveda MD., September 04 2018 09:16:39 AM ET
[2018-09-04] MEDS: MAXIPIME/NS 2 GM/100 ML 2 GM/100 ML BAG IV SCH (09:27)
[2018-09-04] MEDS: MYCAMINE 100 MG in NACL 0.9% 100 ML IV SCH (09:29)
[2018-09-04] MEDS: LOVENOX SUB-Q SCH ×2 (09:34→21:47)
[2018-09-04] MEDS: PEPCID PO SCH ×2 (09:34→21:49)
[2018-09-04] MEDS: TYLENOL PO PRN (09:34)
[2018-09-04] MEDS: SODIUM CHLORIDE FLUSH SYRINGE 10 ML IV PRN (09:35)
[2018-09-04] MEDS: COREG PO SCH ×2 (10:06→21:49)
--- NOTE | 2018-09-04 10:16 | Progress Note ---
Assessment and Plan 1. Acute kidney injury: Vasomotor CHANDANA, likely ATN. Creatinine level is better. Monitor renal function. Avoid nephrotoxic agents. Meds dosage based on GFR. 2. FEN: Hypernatremia, improving with water flushes. Hypokalemia, K is better. Metabolic acidosis, improved. Replete Mg. 3. Bladder retention: S/p manrique catheter. 4. Acute encephalopathy. 5. Respiratory failure: On vent. 6. Sepsis: Followed by ID. 7. Dilated cardiomyopathy with systolic LV dysfunction. 8. Anemia: PRBC. 9. Left LE DVT. D/w her at the bedside. Subjective Date of service: 09/04/18 Principal diagnosis: Acute hypoxemic hypercapnic Resp failure; AE-COPD; Acute kidney injury Interval history: Patient was seen and examined at the bedside. Objective - Vital Signs Vital signs: Vital Signs - 12hr 09/03/18 09/03/18 09/03/18 22:26 22:28 22:30 Temperature Pulse Rate 119 H 110 H 112 H Pulse Rate [ Anterior Bilateral Throughout] Pulse Rate [ Apical] Pulse Rate [ Right Dorsalis Pedis] Respiratory 42 H Rate Respiratory Rate [Anterior Bilateral Throughout] Blood Pressure 126/62 126/62 131/69 O2 Sat by Pulse 89 Oximetry 09/03/18 09/03/18 09/03/18 22:34 22:46 23:00 Temperature Pulse Rate 114 H 109 H 100 H Pulse Rate [ Anterior Bilateral Throughout] Pulse Rate [ Apical] Pulse Rate [ Right Dorsalis Pedis] Respiratory 42 H 38 H 38 H Rate Respiratory Rate [Anterior Bilateral Throughout] Blood Pressure 131/69 120/59 109/52 O2 Sat by Pulse 85 90 93 Oximetry 09/03/18 09/03/18 09/03/18 23:16 23:30 23:46 Temperature Pulse Rate 102 H 98 H 100 H Pulse Rate [ Anterior Bilateral Throughout] Pulse Rate [ Apical] Pulse Rate [ Right Dorsalis Pedis] Respiratory 36 H 40 H 38 H Rate Respiratory Rate [Anterior Bilateral Throughout] Blood Pressure 110/49 117/58 110/50 O2 Sat by Pulse 92 92 91 Oximetry 09/04/18 09/04/18 09/04/18 00:00 00:16 00:31 Temperature 100.1 F H Pulse Rate 99 H 98 H 98 H Pulse Rate [ Anterior Bilateral Throughout] Pulse Rate [ 105 H Apical] Pulse Rate [ 105 H Right Dorsalis Pedis] Respiratory 32 H 38 H 35 H Rate Respiratory Rate [Anterior Bilateral Throughout] Blood Pressure 96/47 114/51 113/47 O2 Sat by Pulse 93 91 95 Oximetry 09/04/18 09/04/18 09/04/18 00:46 01:00 01:15 Temperature Pulse Rate 98 H 97 H 102 H Pulse Rate [ Anterior Bilateral Throughout] Pulse Rate [ Apical] Pulse Rate [ Right Dorsalis Pedis] Respiratory 35 H 33 H 34 H Rate Respiratory Rate [Anterior Bilateral Throughout] Blood Pressure 108/52 115/56 112/58 O2 Sat by Pulse 93 92 93 Oximetry 09/04/18 09/04/18 09/04/18 01:30 01:45 02:00 Temperature Pulse Rate 106 H 101 H 103 H Pulse Rate [ Anterior Bilateral Throughout] Pulse Rate [ Apical] Pulse Rate [ Right Dorsalis Pedis] Respiratory 39 H 38 H 37 H Rate Respiratory Rate [Anterior Bilateral Throughout] Blood Pressure 122/54 132/54 140/50 O2 Sat by Pulse 87 81 L 82 L Oximetry 09/04/18 09/04/18 09/04/18 02:16 02:23 02:30 Temperature Pulse Rate 104 H 98 H Pulse Rate [ 100 H Anterior Bilateral Throughout] Pulse Rate [ Apical] Pulse Rate [ Right Dorsalis Pedis] Respiratory 28 H 31 H Rate Respiratory 33 H Rate [Anterior Bilateral Throughout] Blood Pressure 141/48 129/51 O2 Sat by Pulse 87 84 Oximetry 09/04/18 09/04/18 09/04/18 02:38 02:46 03:00 Temperature Pulse Rate 100 H 100 H Pulse Rate [ 101 H Anterior Bilateral Throughout] Pulse Rate [ Apical] Pulse Rate [ Right Dorsalis Pedis] Respiratory 26 H 23 Rate Respiratory 33 H Rate [Anterior Bilateral Throughout] Blood Pressure 103/46 96/51 O2 Sat by Pulse 86 89 Oximetry 09/04/18 09/04/18 09/04/18 03:15 03:30 03:45 Temperature Pulse Rate 98 H 95 H 97 H Pulse Rate [ Anterior Bilateral Throughout] Pulse Rate [ Apical] Pulse Rate [ Right Dorsalis Pedis] Respiratory 26 H 27 H 24 Rate Respiratory Rate [Anterior Bilateral Throughout] Blood Pressure 94/52 102/49 112/56 O2 Sat by Pulse 98 100 98 Oximetry 09/04/18 09/04/18 09/04/18 04:00 04:15 04:30 Temperature 99.8 F H Pulse Rate 96 H 94 H 96 H Pulse Rate [ Anterior Bilateral Throughout] Pulse Rate [ 99 H Apical] Pulse Rate [ 99 H Right Dorsalis Pedis] Respiratory 23 21 24 Rate Respiratory Rate [Anterior Bilateral Throughout] Blood Pressure 114/56 104/53 109/56 O2 Sat by Pulse 100 100 100 Oximetry 09/04/18 09/04/18 09/04/18 04:42 04:45 05:00 Temperature Pulse Rate 93 H 94 H 96 H Pulse Rate [ Anterior Bilateral Throughout] Pulse Rate [ Apical] Pulse Rate [ Right Dorsalis Pedis] Respiratory 28 H 30 H Rate Respiratory Rate [Anterior Bilateral Throughout] Blood Pressure 109/56 100/53 120/57 O2 Sat by Pulse 100 100 100 Oximetry 09/04/18 09/04/18 09/04/18 05:15 05:23 05:26 Temperature Pulse Rate 92 H 88 Pulse Rate [ Anterior Bilateral Throughout] Pulse Rate [ Apical] Pulse Rate [ Right Dorsalis Pedis] Respiratory 27 H 19 Rate Respiratory Rate [Anterior Bilateral Throughout] Blood Pressure 114/51 114/51 O2 Sat by Pulse 100 Oximetry 09/04/18 09/04/18 09/04/18 05:30 05:45 06:00 Temperature Pulse Rate 91 H 89 90 Pulse Rate [ Anterior Bilateral Throughout] Pulse Rate [ Apical] Pulse Rate [ Right Dorsalis Pedis] Respiratory 25 H 15 25 H Rate Respiratory Rate [Anterior Bilateral Throughout] Blood Pressure 117/52 122/55 115/46 O2 Sat by Pulse 100 100 100 Oximetry 09/04/18 09/04/18 09/04/18 06:15 06:26 08:00 Temperature 102.1 F H Pulse Rate 88 Pulse Rate [ Anterior Bilateral Throughout] Pulse Rate [ Apical] Pulse Rate [ Right Dorsalis Pedis] Respiratory 27 H 27 H Rate Respiratory Rate [Anterior Bilateral Throughout] Blood Pressure 106/51 O2 Sat by Pulse 100 Oximetry - General Appearance General appearance: well-developed, appears stated age, sedated on ventilator, intubated EENT: ATNC Neck: supple Respiratory: Present: Other (coarse breath sounds) Cardiology: S1S2, no murmurs Gastrointestinal: normoactive bowel sounds, no tenderness, no distended Integumentary: warm and dry Neurologic: other (sedated) Musculoskeletal: other (extremity edema noted) - Lab 09/04/18 06:30 09/04/18 06:30 Most recent lab results Calcium 7.9 mg/dL (8.4-10.2) L 09/04/18 06:30 Phosphorus 3.20 mg/dL (2.5-4.5) 09/04/18 06:30 Magnesium 1.50 mg/dL (1.7-2.3) L 09/04/18 06:30 Medications & Allergies - Medications Allergies/Adverse Reactions: Allergies No Known Allergies Allergy (Unverified 08/15/18 16:49) Home Medications: Home Medications Medication Instructions Recorded Confirmed Last Taken Type Carvedilol 6.25 mg PO BID 08/15/18 08/15/18 Unknown History DULoxetine 60 mg PO QDAY 08/15/18 08/15/18 Unknown History Gabapentin 600 mg PO Q6HR PRN 08/15/18 08/15/18 Unknown History Methylphenidate 5 mg PO TID 08/15/18 08/15/18 Unknown History Morphabond ER 60 mg PO Q12HR 08/15/18 08/15/18 Unknown History Pravastatin Sodium 10 mg PO QDAY 08/15/18 08/15/18 Unknown History Tizanidine HCl 4 mg PO Q12HR 08/15/18 08/15/18 Unknown History oxyCODONE /ACETAMINOPHEN 7.5 - 325 mg PO Q8HR 08/15/18 08/15/18 Unknown History ALBUTEROL Inhaler(NF) 90 mcg IH TID 08/29/18 08/29/18 Unknown History Omeprazole-Bicarb 40-1,100 Cap 40 mg PO DAILY 08/29/18 08/29/18 Unknown History Active Medications: Generic Name Dose Route Start Last Admin Trade Name Freq PRN Reason Stop Dose Admin Acetaminophen 650 mg 08/15/18 22:12 09/04/18 09:34 Tylenol PO 650 mg Q4H PRN Administration Pain MILD(1-3)/Fever >100.5/MONDRAGON Albuterol 2.5 mg 08/17/18 17:00 Proventil IH Q3HRT PRN Shortness Of Breath Albuterol/Ipratropium 1 ampul 08/20/18 14:00 09/04/18 02:23 Duoneb *Not For Prn Use* IH 1 ampul Q6HRT LAMAR Administration Lipase/Protease/Amylase 1 each 09/02/18 10:40 Pancresam Elizabeth 10,500 Unit FEEDTUBE PRN PRN For Clogged Feeding Tube Arformoterol Tartrate 15 mcg 08/18/18 20:00 09/03/18 19:33 Brovana Nebu IH 15 mcg Q12HRT LAMAR Administration Budesonide 0.5 mg 08/18/18 20:00 09/03/18 19:33 Pulmicort IH 0.5 mg Q12HRT LAMAR Administration Carvedilol 3.125 mg 08/26/18 15:19 09/03/18 22:26 Coreg PO 3.125 mg BID LAMAR Administration Duloxetine HCl 60 mg 08/16/18 10:00 08/30/18 14:35 Cymbalta PO Not Given QDAY LAMAR Enoxaparin Sodium 100 mg 09/01/18 22:00 09/04/18 09:34 Lovenox 1 mg/kg (100 mg) 100 mg SUB-Q Administration Q12HR LAMAR Famotidine 10 mg 08/31/18 22:00 09/04/18 09:34 Pepcid PO 10 mg BID LAMAR Administration Fentanyl 50 mcg 09/02/18 10:17 Sublimaze IV Q10MIN PRN ANALGESIA Hydralazine HCl 10 mg 08/19/18 13:59 08/29/18 14:22 Apresoline IV 10 mg Q3H PRN Administration Hydralazine HCl 25 mg 09/01/18 14:00 09/04/18 05:23 Apresoline PO 25 mg Q8HR LAMAR Administration Hydrophilic Ointment 1 applic 08/15/18 21:55 09/01/18 09:07 Vaseline Lip Therapy TP 1 applic Q2HR PRN Administration Dry Lips Dexmedetomidine HCl 400 mcg/ 104 mls @ 4.956 mls/hr 09/01/18 18:00 09/03/18 15:38 Sodium Chloride IV 0 mcg/kg/hr TITRATE LAMAR 0 mls/hr Titration Protocol 0.2 MCG/KG/HR Chlorothiazide Sodium 500 mg/ 50 mls @ 200 mls/hr 09/02/18 22:00 09/03/18 22:00 Sodium Chloride IV 200 mls/hr QDAY@2200 LAMAR Administration Fentanyl Citrate 2,000 mcg in 100 mls @ 4.765 mls/hr 09/02/18 11:00 09/04/18 06:49 Fentanyl Drip Premix IV 2 mcg/kg/hr TITR LAMAR 9.53 mls/hr Administration Protocol 1 MCG/KG/HR Propofol 1,000 mg in 100 mls @ 2.859 mls/hr 09/02/18 11:00 09/04/18 08:35 Diprivan 10 Mg/Ml IV 5 mcg/kg/min TITR LAMAR 2.859 mls/hr Administration Protocol 5 MCG/KG/MIN Cefepime HCl 2 gm in 100 mls @ 200 mls/hr 09/02/18 15:00 09/04/18 09:27 Maxipime/Ns 2 Gm/100 Ml IV 200 mls/hr Q12HR LAMAR Administration Protocol Micafungin Sodium 100 mg/ 100 mls @ 100 mls/hr 09/02/18 15:00 09/04/18 09:29 Sodium Chloride IV 100 mls/hr QDAY LAMAR Administration Protocol Vancomycin HCl 1,500 mg/ 530 mls @ 333.333 mls/hr 09/03/18 04:00 09/04/18 03:29 Sodium Chloride IV 333.333 mls/hr Q12H LAMAR Administration Potassium Chloride 20 meq/ 1,019.625 mls @ 75 mls/hr 09/04/18 02:00 09/04/18 09:36 Sodium Chloride 38.5 meq/ IV 75 mls/hr Dextrose DIRECT LAMAR Administration Metoclopramide HCl 5 mg 08/15/18 22:50 Reglan IV Q6H PRN Nausea And Vomiting Morphine Sulfate 1 mg 08/29/18 15:29 09/01/18 16:16 Morphine IV 1 mg Q4H PRN Administration Pain, Moderate (4-6) Morphine Sulfate 30 mg 08/31/18 12:00 09/04/18 05:26 Morphine PO 30 mg Q6HR LAMAR Administration Ondansetron HCl 4 mg 08/15/18 22:12 08/31/18 17:52 Zofran IV 4 mg Q8H PRN Administration Nausea And Vomiting Simple Syrup 15 ml 09/02/18 11:24 Simple Syrup FEEDTUBE PRN PRN Hypoglycemia Simple Syrup 30 ml 09/02/18 11:24 Simple Syrup FEEDTUBE PRN PRN Hypoglycemia Sodium Bicarbonate 325 mg 09/02/18 10:40 Sodium Bicarbonate FEEDTUBE PRN PRN For Clogged Feeding Tube Sodium Chloride 10 ml 08/15/18 22:12 09/04/18 09:35 Sodium Chloride Flush Syringe 10 Ml IV 10 ml PRN PRN Administration LINE FLUSH
[2018-09-04] MEDS ORDERED: LASIX IV ONE (13:00)
--- NOTE | 2018-09-04 13:25 | Progress Note ---
Assessment and Plan 1. New onset cardiomyopathy LV ejection fraction 25-30% 2. Severe polymicrobial sepsis/septic shock 3. Respiratory failure 4. Altered mental status probably secondary to metabolic encephalopathy Plan. Continue supportive cardiac management. Subjective Date of service: 09/04/18 Principal diagnosis: Acute hypoxemic hypercapnic Resp failure; AE-COPD; Acute kidney injury Interval history: Unresponsive intubated and sedated Objective Vital Signs Temp Pulse Pulse Pulse Pulse Resp Resp 09/04/18 13:20 99.3 F 09/04/18 13:15 73 26 H 09/04/18 13:00 77 19 09/04/18 12:45 74 12 09/04/18 12:30 76 31 H 09/04/18 12:15 82 28 H 09/04/18 12:00 99.3 F 84 15 09/04/18 11:45 84 20 09/04/18 11:30 82 19 09/04/18 11:15 77 21 09/04/18 11:00 78 15 09/04/18 10:45 79 12 09/04/18 10:30 83 14 09/04/18 10:15 85 24 09/04/18 10:00 85 26 H 09/04/18 09:45 90 21 09/04/18 09:30 92 H 25 H 09/04/18 09:15 102 H 31 H 09/04/18 09:00 104 H 34 H 09/04/18 08:45 103 H 34 H 09/04/18 08:30 103 H 34 H 09/04/18 08:15 107 H 36 H 09/04/18 08:00 102.1 F H 103 H 28 H 09/04/18 07:45 106 H 37 H 09/04/18 07:40 106 H 30 H 09/04/18 07:30 109 H 106 H 38 H 37 H 09/04/18 07:16 113 H 38 H 09/04/18 07:00 110 H 39 H 09/04/18 06:46 107 H 22 09/04/18 06:30 90 18 09/04/18 06:26 27 H 09/04/18 06:15 88 27 H 09/04/18 06:00 90 25 H 09/04/18 05:45 89 15 09/04/18 05:30 91 H 25 H 09/04/18 05:26 19 09/04/18 05:23 88 09/04/18 05:15 92 H 27 H 09/04/18 05:00 96 H 30 H 09/04/18 04:45 94 H 28 H 09/04/18 04:42 93 H 09/04/18 04:30 96 H 24 09/04/18 04:15 94 H 21 09/04/18 04:00 99.8 F H 96 H 99 H 99 H 23 09/04/18 03:45 97 H 24 09/04/18 03:30 95 H 27 H 09/04/18 03:15 98 H 26 H 09/04/18 03:00 100 H 23 09/04/18 02:46 100 H 26 H 09/04/18 02:38 101 H 33 H 09/04/18 02:30 98 H 31 H 09/04/18 02:23 100 H 33 H 09/04/18 02:16 104 H 28 H 09/04/18 02:00 103 H 37 H 09/04/18 01:45 101 H 38 H 09/04/18 01:30 106 H 39 H 09/04/18 01:15 102 H 34 H 09/04/18 01:00 97 H 33 H 09/04/18 00:46 98 H 35 H 09/04/18 00:31 98 H 35 H 09/04/18 00:16 98 H 38 H 09/04/18 00:00 100.1 F H 99 H 105 H 105 H 32 H 09/03/18 23:46 100 H 38 H 09/03/18 23:30 98 H 40 H 09/03/18 23:16 102 H 36 H 09/03/18 23:00 100 H 38 H 09/03/18 22:46 109 H 38 H 09/03/18 22:34 114 H 42 H 09/03/18 22:30 112 H 42 H 09/03/18 22:28 110 H 09/03/18 22:26 119 H 09/03/18 22:15 113 H 39 H 09/03/18 22:14 112 H 39 H 09/03/18 22:00 109 H 40 H 09/03/18 21:46 107 H 42 H 09/03/18 21:36 99.6 F 09/03/18 21:30 108 H 40 H 09/03/18 21:20 100 H 37 H 09/03/18 21:10 110 H 19 09/03/18 21:00 100 H 38 H 09/03/18 20:50 108 H 21 09/03/18 20:40 112 H 40 H 09/03/18 20:30 107 H 19 09/03/18 20:20 95 H 31 H 09/03/18 20:10 108 H 25 H 09/03/18 20:00 99.9 F H 104 H 33 H 09/03/18 19:51 99 H 34 H 09/03/18 19:45 100 H 16 09/03/18 19:41 99.6 F 104 H 32 H 09/03/18 19:36 97 H 34 H 09/03/18 19:35 99.8 F H 100 H 26 H 09/03/18 19:34 97 H 09/03/18 19:30 102 H 19 09/03/18 19:15 99 H 30 H 09/03/18 19:10 99.9 F H 91 H 26 H 09/03/18 19:00 97 H 23 09/03/18 18:45 100 H 27 H 09/03/18 18:41 99.9 F H 91 H 26 H 09/03/18 18:30 104 H 32 H 09/03/18 18:26 99.6 F 98 H 20 09/03/18 18:15 95 H 27 H 09/03/18 18:00 96 H 25 H 09/03/18 17:45 93 H 27 H 09/03/18 17:30 81 13 09/03/18 17:15 83 14 09/03/18 17:00 82 13 09/03/18 16:45 99 H 29 H 09/03/18 16:30 89 21 09/03/18 16:15 89 17 09/03/18 16:00 101.2 F H 88 17 09/03/18 15:45 89 18 09/03/18 15:30 91 H 22 09/03/18 15:16 94 H 19 09/03/18 15:00 100 H 34 H 09/03/18 14:52 106 H 09/03/18 14:46 112 H 35 H 09/03/18 14:30 103 H 36 H 09/03/18 14:17 100 H 09/03/18 14:15 103 H 29 H 09/03/18 14:10 100 H 33 H 09/03/18 14:00 110 H 102 H 38 H 34 H 09/03/18 13:45 107 H 37 H 09/03/18 13:30 105 H 34 H BP Pulse Ox 09/04/18 13:20 09/04/18 13:15 97/51 100 09/04/18 13:00 104/54 100 09/04/18 12:45 95/49 100 09/04/18 12:30 97/46 100 09/04/18 12:15 97/50 100 09/04/18 12:00 107/46 97 09/04/18 11:45 113/52 96 09/04/18 11:30 110/56 92 09/04/18 11:15 97/51 100 09/04/18 11:00 106/44 100 09/04/18 10:45 97/48 100 09/04/18 10:30 100/48 100 09/04/18 10:15 83/41 100 09/04/18 10:00 94/41 99 09/04/18 09:45 100/42 100 09/04/18 09:30 113/47 99 09/04/18 09:15 120/56 91 09/04/18 09:00 123/48 91 09/04/18 08:45 115/55 87 09/04/18 08:30 122/65 90 09/04/18 08:15 126/67 89 09/04/18 08:00 129/65 92 09/04/18 07:45 136/60 89 09/04/18 07:40 09/04/18 07:30 142/58 83 L 09/04/18 07:16 139/74 83 L 09/04/18 07:00 145/65 84 09/04/18 06:46 101/50 87 09/04/18 06:30 101/50 100 09/04/18 06:26 09/04/18 06:15 106/51 100 09/04/18 06:00 115/46 100 09/04/18 05:45 122/55 100 09/04/18 05:30 117/52 100 09/04/18 05:26 09/04/18 05:23 114/51 09/04/18 05:15 114/51 100 09/04/18 05:00 120/57 100 09/04/18 04:45 100/53 100 09/04/18 04:42 109/56 100 09/04/18 04:30 109/56 100 09/04/18 04:15 104/53 100 09/04/18 04:00 114/56 100 09/04/18 03:45 112/56 98 09/04/18 03:30 102/49 100 09/04/18 03:15 94/52 98 09/04/18 03:00 96/51 89 09/04/18 02:46 103/46 86 09/04/18 02:38 09/04/18 02:30 129/51 84 09/04/18 02:23 09/04/18 02:16 141/48 87 09/04/18 02:00 140/50 82 L 09/04/18 01:45 132/54 81 L 09/04/18 01:30 122/54 87 09/04/18 01:15 112/58 93 09/04/18 01:00 115/56 92 09/04/18 00:46 108/52 93 09/04/18 00:31 113/47 95 09/04/18 00:16 114/51 91 09/04/18 00:00 96/47 93 09/03/18 23:46 110/50 91 09/03/18 23:30 117/58 92 09/03/18 23:16 110/49 92 09/03/18 23:00 109/52 93 09/03/18 22:46 120/59 90 09/03/18 22:34 131/69 85 09/03/18 22:30 131/69 89 09/03/18 22:28 126/62 09/03/18 22:26 126/62 09/03/18 22:15 126/62 88 09/03/18 22:14 129/61 89 09/03/18 22:00 139/80 89 09/03/18 21:46 139/80 88 09/03/18 21:36 09/03/18 21:30 137/73 90 09/03/18 21:20 135/73 94 09/03/18 21:10 104/56 87 09/03/18 21:00 144/67 94 09/03/18 20:50 144/67 87 09/03/18 20:40 142/62 87 09/03/18 20:30 124/67 94 09/03/18 20:20 129/52 98 09/03/18 20:10 142/62 98 09/03/18 20:00 144/70 98 09/03/18 19:51 09/03/18 19:45 133/70 97 09/03/18 19:41 142/62 96 09/03/18 19:36 09/03/18 19:35 135/68 99 09/03/18 19:34 138/51 100 09/03/18 19:30 138/51 100 09/03/18 19:15 126/60 100 09/03/18 19:10 126/63 100 09/03/18 19:00 126/63 99 09/03/18 18:45 121/53 99 09/03/18 18:41 126/63 100 09/03/18 18:30 124/56 98 09/03/18 18:26 116/48 100 09/03/18 18:15 116/48 100 09/03/18 18:00 107/65 97 09/03/18 17:45 115/53 99 09/03/18 17:30 105/54 100 09/03/18 17:15 98/46 100 09/03/18 17:00 84/41 100 09/03/18 16:45 98/44 96 09/03/18 16:30 81/40 100 09/03/18 16:15 88/38 100 09/03/18 16:00 92/42 100 09/03/18 15:45 87/39 100 09/03/18 15:30 80/36 100 09/03/18 15:16 76/35 100 09/03/18 15:00 129/30 98 09/03/18 14:52 159/57 09/03/18 14:46 159/57 91 09/03/18 14:30 130/55 98 09/03/18 14:17 104/62 96 09/03/18 14:15 104/62 98 09/03/18 14:10 09/03/18 14:00 120/69 92 09/03/18 13:45 129/76 96 09/03/18 13:30 123/56 94 - Physical Examination General: No Apparent Distress HEENT: Positive: PERRL, Other (ET tube in place) Neck: Positive: neck supple, trachea midline Cardiac: Positive: Regular Rate, S1/S2, S3, Dilated, Laterally Displaced Lungs: Positive: clear to auscultation, No Wheeze, Rales, Rhonchi Neuro: Positive: Weakness Abdomen: Positive: Unremarkable, Soft, Active Bowel Sounds Skin: Positive: Clear Extremities: Absent: edema - Labs and Meds CBC 09/04/18 Range/Units 06:30 WBC 10.3 (4.5-11.0) K/mm3 RBC 2.32 L (3.65-5.03) M/mm3 Hgb 7.0 L (10.1-14.3) gm/dl Hct 21.9 L (30.3-42.9) % Plt Count 165 (140-440) K/mm3 Lymph # 1.6 (1.2-5.4) K/mm3 [place] # 0.4 (0.0-0.8) K/mm3 Eos # 0.0 (0.0-0.4) K/mm3 Baso # 0.1 (0.0-0.1) K/mm3 Comprehensive Metabolic Panel 09/04/18 Range/Units 06:30 Sodium 150 H D (137-145) mmol/L Potassium 3.8 D (3.6-5.0) mmol/L Chloride 115.9 H (98-107) mmol/L Carbon Dioxide 26 (22-30) mmol/L BUN 21 H (7-17) mg/dL Creatinine 0.6 L (0.7-1.2) mg/dL Glucose 125 H (65-100) mg/dL Calcium 7.9 L (8.4-10.2) mg/dL - Allied health notes Allied health notes reviewed: nursing
--- NOTE | 2018-09-04 13:40 | Progress Note ---
Assessment and Plan Severe sepsis Intermittent fevers andleukocytosis -Fungemia on Micafungin Acute hypoxic-hypercapnic respiratory failure on MVS, re-inttubated h/o COPD Acute kidney injury, resolved Acute encephalopathy( toxic-metabolic) Aspiration pneumonia/CAP New onset cardiomyopathy, LVEF 25-30% this admission Previous echo 03/30/2016 at [facility] revealed normal LVEF Previous stress MPI 03/29/2016 at [facility] revealed no ischemia Abnormal ECG showing LBBB, chronic Anemia s/p PRBC -Recent EGD at [facility] 08/08/2018 revealing irregular Z line, gastritis and small hiatal hernia Recent colonoscopy at [facility] 08/08/2018 revealing sigmoid polyp, transverse colon polyps, inflamed hemorrhoids and diverticulosis E.coli/Staph pneumonia Thrombocytopenia resolved Hypernatremia Hypokalemia -Continue with MVS -VAP bundle addressed -Aspiration precautions -Wean supplemental oxygen to keep O2 sats 88-90% -ABG and CXR -Antibiotics/antifungal to complete course per ID -Bronchial washings, no growth -Hypotonic solution for hypernatremia -OGT for free water, medications and nutritional support. - Agitation and analgesia management, restart Seroquel. Stop Propofol -Monitor renal indices -Cardioprotective measures -Stress ulcer prophylaxis -CT head -Aspiration precautions -Accuchecks with glycemic control. Target glucose of 140-180 mg/dL -Continue bronchodilators with pulmonary hygiene per RT -Maintenance of sleep -wake cycle -Mobility program -Agitation and analgesia -Influenza and pneumonia vaccination per protocol ..care plan discussed at length with RN/RT at the bedside Discussed with the at the bedside. Updated him and care plan discussed. It is possible that her deteriorating respiratory status is from a pulmonary embolism, and she has required supportive transfusions. I discussed with the extensively that we will have to get CTA to r/o PE. There is a risk of contrast induced nephropathy. To help mitigate the risk, no further diuretic administration, IV hydration . If there is a PE, she will be a candidate for thrombectomy and IVC filter. PROGNOSIS :GUARDED CONDITION: CRITICAL CODE STATUS: FULL CODE The high probability of a clinically significant, sudden or life-threatening deterioration of the [respiratory, cardiovascular, renal] system(s) required my full and direct attention, intervention and personal management. The aggregate critical care time was [35] minutes without overlap. Time includes spent on; [x] Data Review and interpretation [x] Patient assessment and monitoring of vital signs [x] Documentation [x] Medication orders and management Subjective Date of service: 09/04/18 Principal diagnosis: Acute hypoxemic hypercapnic Resp failure; AE-COPD; Acute kidney injury Interval history: Follow up: Aspiration PNA, Abnormal CXR, Hypotension, Acute renal failure, Acute encephaloapthy, Acute hypoxemic respiratory failure on MVS Seen and examined. Vitals, labs, medications, chart and imaging reviewed. 24 hours events reviewed. No fevers, no vomiting, on going agitation with desaturations with minimal movement. Remains orally intubated, critically ill. On propofol and fentanyl s/p 1 unit PRBC yesterday FOBT negative at the bedside Objective Vital Signs - 12hr 09/04/18 09/04/18 09/04/18 01:45 02:00 02:16 Temperature Pulse Rate 101 H 103 H 104 H Pulse Rate [ Anterior Bilateral Throughout] Pulse Rate [ Apical] Pulse Rate [ Right Dorsalis Pedis] Respiratory 38 H 37 H 28 H Rate Respiratory Rate [Anterior Bilateral Throughout] Blood Pressure 132/54 140/50 141/48 O2 Sat by Pulse 81 L 82 L 87 Oximetry 09/04/18 09/04/18 09/04/18 02:23 02:30 02:38 Temperature Pulse Rate 98 H Pulse Rate [ 100 H 101 H Anterior Bilateral Throughout] Pulse Rate [ Apical] Pulse Rate [ Right Dorsalis Pedis] Respiratory 31 H Rate Respiratory 33 H 33 H Rate [Anterior Bilateral Throughout] Blood Pressure 129/51 O2 Sat by Pulse 84 Oximetry 09/04/18 09/04/18 09/04/18 02:46 03:00 03:15 Temperature Pulse Rate 100 H 100 H 98 H Pulse Rate [ Anterior Bilateral Throughout] Pulse Rate [ Apical] Pulse Rate [ Right Dorsalis Pedis] Respiratory 26 H 23 26 H Rate Respiratory Rate [Anterior Bilateral Throughout] Blood Pressure 103/46 96/51 94/52 O2 Sat by Pulse 86 89 98 Oximetry 09/04/18 09/04/18 09/04/18 03:30 03:45 04:00 Temperature 99.8 F H Pulse Rate 95 H 97 H 96 H Pulse Rate [ Anterior Bilateral Throughout] Pulse Rate [ 99 H Apical] Pulse Rate [ 99 H Right Dorsalis Pedis] Respiratory 27 H 24 23 Rate Respiratory Rate [Anterior Bilateral Throughout] Blood Pressure 102/49 112/56 114/56 O2 Sat by Pulse 100 98 100 Oximetry 09/04/18 09/04/18 09/04/18 04:15 04:30 04:42 Temperature Pulse Rate 94 H 96 H 93 H Pulse Rate [ Anterior Bilateral Throughout] Pulse Rate [ Apical] Pulse Rate [ Right Dorsalis Pedis] Respiratory 21 24 Rate Respiratory Rate [Anterior Bilateral Throughout] Blood Pressure 104/53 109/56 109/56 O2 Sat by Pulse 100 100 100 Oximetry 09/04/18 09/04/18 09/04/18 04:45 05:00 05:15 Temperature Pulse Rate 94 H 96 H 92 H Pulse Rate [ Anterior Bilateral Throughout] Pulse Rate [ Apical] Pulse Rate [ Right Dorsalis Pedis] Respiratory 28 H 30 H 27 H Rate Respiratory Rate [Anterior Bilateral Throughout] Blood Pressure 100/53 120/57 114/51 O2 Sat by Pulse 100 100 100 Oximetry 09/04/18 09/04/18 09/04/18 05:23 05:26 05:30 Temperature Pulse Rate 88 91 H Pulse Rate [ Anterior Bilateral Throughout] Pulse Rate [ Apical] Pulse Rate [ Right Dorsalis Pedis] Respiratory 19 25 H Rate Respiratory Rate [Anterior Bilateral Throughout] Blood Pressure 114/51 117/52 O2 Sat by Pulse 100 Oximetry 09/04/18 09/04/18 09/04/18 05:45 06:00 06:15 Temperature Pulse Rate 89 90 88 Pulse Rate [ Anterior Bilateral Throughout] Pulse Rate [ Apical] Pulse Rate [ Right Dorsalis Pedis] Respiratory 15 25 H 27 H Rate Respiratory Rate [Anterior Bilateral Throughout] Blood Pressure 122/55 115/46 106/51 O2 Sat by Pulse 100 100 100 Oximetry 09/04/18 09/04/18 09/04/18 06:26 06:30 06:46 Temperature Pulse Rate 90 107 H Pulse Rate [ Anterior Bilateral Throughout] Pulse Rate [ Apical] Pulse Rate [ Right Dorsalis Pedis] Respiratory 27 H 18 22 Rate Respiratory Rate [Anterior Bilateral Throughout] Blood Pressure 101/50 101/50 O2 Sat by Pulse 100 87 Oximetry 09/04/18 09/04/18 09/04/18 07:00 07:16 07:30 Temperature Pulse Rate 110 H 113 H 109 H Pulse Rate [ 106 H Anterior Bilateral Throughout] Pulse Rate [ Apical] Pulse Rate [ Right Dorsalis Pedis] Respiratory 39 H 38 H 38 H Rate Respiratory 37 H Rate [Anterior Bilateral Throughout] Blood Pressure 145/65 139/74 142/58 O2 Sat by Pulse 84 83 L 83 L Oximetry 09/04/18 09/04/18 09/04/18 07:40 07:45 08:00 Temperature 102.1 F H Pulse Rate 106 H 103 H Pulse Rate [ 106 H Anterior Bilateral Throughout] Pulse Rate [ Apical] Pulse Rate [ Right Dorsalis Pedis] Respiratory 37 H 28 H Rate Respiratory 30 H Rate [Anterior Bilateral Throughout] Blood Pressure 136/60 129/65 O2 Sat by Pulse 89 92 Oximetry 09/04/18 09/04/18 09/04/18 08:15 08:30 08:45 Temperature Pulse Rate 107 H 103 H 103 H Pulse Rate [ Anterior Bilateral Throughout] Pulse Rate [ Apical] Pulse Rate [ Right Dorsalis Pedis] Respiratory 36 H 34 H 34 H Rate Respiratory Rate [Anterior Bilateral Throughout] Blood Pressure 126/67 122/65 115/55 O2 Sat by Pulse 89 90 87 Oximetry 09/04/18 09/04/18 09/04/18 09:00 09:15 09:30 Temperature Pulse Rate 104 H 102 H 92 H Pulse Rate [ Anterior Bilateral Throughout] Pulse Rate [ Apical] Pulse Rate [ Right Dorsalis Pedis] Respiratory 34 H 31 H 25 H Rate Respiratory Rate [Anterior Bilateral Throughout] Blood Pressure 123/48 120/56 113/47 O2 Sat by Pulse 91 91 99 Oximetry 09/04/18 09/04/18 09/04/18 09:45 10:00 10:15 Temperature Pulse Rate 90 85 85 Pulse Rate [ Anterior Bilateral Throughout] Pulse Rate [ Apical] Pulse Rate [ Right Dorsalis Pedis] Respiratory 21 26 H 24 Rate Respiratory Rate [Anterior Bilateral Throughout] Blood Pressure 100/42 94/41 83/41 O2 Sat by Pulse 100 99 100 Oximetry 09/04/18 09/04/18 09/04/18 10:30 10:45 11:00 Temperature Pulse Rate 83 79 78 Pulse Rate [ Anterior Bilateral Throughout] Pulse Rate [ Apical] Pulse Rate [ Right Dorsalis Pedis] Respiratory 14 12 15 Rate Respiratory Rate [Anterior Bilateral Throughout] Blood Pressure 100/48 97/48 106/44 O2 Sat by Pulse 100 100 100 Oximetry 09/04/18 09/04/18 09/04/18 11:15 11:30 11:45 Temperature Pulse Rate 77 82 84 Pulse Rate [ Anterior Bilateral Throughout] Pulse Rate [ Apical] Pulse Rate [ Right Dorsalis Pedis] Respiratory 21 19 20 Rate Respiratory Rate [Anterior Bilateral Throughout] Blood Pressure 97/51 110/56 113/52 O2 Sat by Pulse 100 92 96 Oximetry 09/04/18 09/04/18 09/04/18 12:00 12:15 12:30 Temperature 99.3 F Pulse Rate 84 82 76 Pulse Rate [ Anterior Bilateral Throughout] Pulse Rate [ Apical] Pulse Rate [ Right Dorsalis Pedis] Respiratory 15 28 H 31 H Rate Respiratory Rate [Anterior Bilateral Throughout] Blood Pressure 107/46 97/50 97/46 O2 Sat by Pulse 97 100 100 Oximetry 09/04/18 09/04/18 09/04/18 12:45 13:00 13:15 Temperature Pulse Rate 74 77 73 Pulse Rate [ Anterior Bilateral Throughout] Pulse Rate [ Apical] Pulse Rate [ Right Dorsalis Pedis] Respiratory 12 19 26 H Rate Respiratory Rate [Anterior Bilateral Throughout] Blood Pressure 95/49 104/54 97/51 O2 Sat by Pulse 100 100 100 Oximetry 09/04/18 13:20 Temperature 99.3 F Pulse Rate Pulse Rate [ Anterior Bilateral Throughout] Pulse Rate [ Apical] Pulse Rate [ Right Dorsalis Pedis] Respiratory Rate Respiratory Rate [Anterior Bilateral Throughout] Blood Pressure O2 Sat by Pulse Oximetry Constitutional: appears uncomfortable, other (elderly looking CF, normocephalic and atraumatic) Eyes: non-icteric ENT: oropharynx moist, other (ETT 23 cm MARTHA) Neck: supple, no lymphadenopathy, no JVD, other (no thyromegaly) Effort: mildly labored Ascultation: Bilateral: diminished breath sounds, rales, rhonchi Percussion: Bilateral: not dull Cardiovascular: regular rate and rhythm Gastrointestinal: normoactive bowel sounds, soft, non-tender, non-distended Integumentary: normal Extremities: no cyanosis, no ischemia or petechiae, edema (Left lower extremity) Neurologic: non-focal exam (grossly), pupils equal and round, CN II-XII normal, motor strength normal and Psychiatric: other (unable to assess) CBC and BMP: 09/04/18 06:30 09/04/18 06:30 ABG, PT/INR, D-dimer: ABG POC ABG pH 7.244 (7.35-7.45) L 09/04/18 11:51 POC ABG pCO2 54.2 (35-45) H 09/04/18 11:51 POC ABG pO2 62 (80-105) L 09/04/18 11:51 POC ABG HCO3 23.4 (22-26 mml/L) 09/04/18 11:51 POC ABG Total CO2 25 (23-27mmol/L) 09/04/18 11:51 POC ABG O2 Sat 87 09/04/18 11:51 PT/INR, D-dimer D-Dimer 2768.33 ng/mlDDU (0-234) H 08/15/18 18:31 Abnormal lab findings: Abnormal Labs 08/15/18 08/15/18 08/15/18 17:52 17:52 17:52 WBC 12.7 H RBC 3.25 L Hgb Hct RDW Plt Count Lymph % (Auto) Patrick % (Auto) Lymph # Patrick # Seg Neutrophils % Seg Neuts % (Manual) Lymphocytes % (Manual) 6.0 L Nucleated RBC % Seg Neutrophils # Seg Neutrophils # Man Lymphocytes # (Manual) 0.8 L D-Dimer POC ABG pH POC ABG pCO2 POC ABG pO2 VBG pH Sodium Potassium 3.4 L Chloride 94.6 L Carbon Dioxide 17 L BUN 67 H Creatinine 3.5 H Glucose 131 H POC Glucose Hemoglobin A1c Lactic Acid 5.20 H* Calcium 7.6 L Phosphorus Magnesium AST 887 H ALT 316 H Troponin T C-Reactive Protein Total Protein Albumin 3.1 L Triglycerides LDL Cholesterol Direct HDL Cholesterol Urine WBC (Auto) Salicylates Acetaminophen % CD3 Cells % CD19 Cells Absolute CD19 Count Miscellaneous Test Crossmatch 08/15/18 08/15/18 08/15/18 18:11 18:19 18:31 WBC RBC Hgb Hct RDW Plt Count Lymph % (Auto) Patrick % (Auto) Lymph # Patrick # Seg Neutrophils % Seg Neuts % (Manual) Lymphocytes % (Manual) Nucleated RBC % Seg Neutrophils # Seg Neutrophils # Man Lymphocytes # (Manual) D-Dimer 2768.33 H POC ABG pH 7.173 L POC ABG pCO2 47.8 H POC ABG pO2 177 H VBG pH 7.187 L* Sodium Potassium Chloride Carbon Dioxide BUN Creatinine Glucose POC Glucose Hemoglobin A1c Lactic Acid Calcium Phosphorus Magnesium AST ALT Troponin T C-Reactive Protein Total Protein Albumin Triglycerides LDL Cholesterol Direct HDL Cholesterol Urine WBC (Auto) Salicylates Acetaminophen % CD3 Cells % CD19 Cells Absolute CD19 Count Miscellaneous Test Crossmatch 08/15/18 08/15/18 08/15/18 18:31 19:14 19:14 WBC RBC Hgb Hct RDW Plt Count Lymph % (Auto) Patrick % (Auto) Lymph # Patrick # Seg Neutrophils % Seg Neuts % (Manual) Lymphocytes % (Manual) Nucleated RBC % Seg Neutrophils # Seg Neutrophils # Man Lymphocytes # (Manual) D-Dimer POC ABG pH POC ABG pCO2 POC ABG pO2 VBG pH Sodium Potassium Chloride Carbon Dioxide BUN Creatinine Glucose POC Glucose Hemoglobin A1c Lactic Acid 2.70 H* Calcium Phosphorus Magnesium AST ALT Troponin T 0.454 H* C-Reactive Protein Total Protein Albumin Triglycerides 356 H LDL Cholesterol Direct 4 L HDL Cholesterol 10 L Urine WBC (Auto) Salicylates < 0.3 L Acetaminophen % CD3 Cells % CD19 Cells Absolute CD19 Count Miscellaneous Test Crossmatch 08/15/18 08/15/18 08/15/18 19:14 19:15 23:09 WBC RBC Hgb Hct RDW Plt Count Lymph % (Auto) Patrick % (Auto) Lymph # Patrick # Seg Neutrophils % Seg Neuts % (Manual) Lymphocytes % (Manual) Nucleated RBC % Seg Neutrophils # Seg Neutrophils # Man Lymphocytes # (Manual) D-Dimer POC ABG pH POC ABG pCO2 POC ABG pO2 VBG pH Sodium Potassium Chloride Carbon Dioxide BUN Creatinine Glucose POC Glucose Hemoglobin A1c Lactic Acid 3.20 H* Calcium Phosphorus Magnesium AST ALT Troponin T C-Reactive Protein Total Protein Albumin Triglycerides LDL Cholesterol Direct HDL Cholesterol Urine WBC (Auto) 17.0 H Salicylates Acetaminophen < 5.0 L % CD3 Cells % CD19 Cells Absolute CD19 Count Miscellaneous Test Crossmatch 08/15/18 08/16/18 08/16/18 23:09 01:41 05:38 WBC RBC 3.07 L Hgb 9.8 L Hct 28.7 L RDW Plt Count Lymph % (Auto) Patrick % (Auto) Lymph # Patrick # Seg Neutrophils % Seg Neuts % (Manual) 84.0 H Lymphocytes % (Manual) 6.0 L Nucleated RBC % 4.0 H Seg Neutrophils # Seg Neutrophils # Man Lymphocytes # (Manual) 0.5 L D-Dimer POC ABG pH 7.323 L POC ABG pCO2 34.7 L POC ABG pO2 78 L VBG pH Sodium Potassium Chloride Carbon Dioxide BUN Creatinine Glucose POC Glucose Hemoglobin A1c 6.4 H Lactic Acid Calcium Phosphorus Magnesium AST ALT Troponin T C-Reactive Protein Total Protein Albumin Triglycerides LDL Cholesterol Direct HDL Cholesterol Urine WBC (Auto) Salicylates Acetaminophen % CD3 Cells % CD19 Cells Absolute CD19 Count Miscellaneous Test Crossmatch 08/16/18 08/16/18 08/17/18 05:38 22:43 03:42 WBC RBC Hgb Hct RDW Plt Count Lymph % (Auto) Patrick % (Auto) Lymph # Patrick # Seg Neutrophils % Seg Neuts % (Manual) Lymphocytes % (Manual) Nucleated RBC % Seg Neutrophils # Seg Neutrophils # Man Lymphocytes # (Manual) D-Dimer POC ABG pH POC ABG pCO2 POC ABG pO2 VBG pH Sodium Potassium 2.9 L* 3.1 L 2.9 L* Chloride 108.8 H 111.9 H Carbon Dioxide 17 L 19 L 21 L BUN 62 H 40 H 33 H Creatinine 2.0 H Glucose 139 H 145 H POC Glucose Hemoglobin A1c Lactic Acid Calcium 7.8 L 8.3 L Phosphorus 1.50 L Magnesium AST 619 H ALT 353 H Troponin T C-Reactive Protein Total Protein 6.1 L Albumin 2.8 L Triglycerides LDL Cholesterol Direct HDL Cholesterol Urine WBC (Auto) Salicylates Acetaminophen % CD3 Cells % CD19 Cells Absolute CD19 Count Miscellaneous Test Crossmatch 08/17/18 08/17/18 08/18/18 11:02 16:42 03:28 WBC RBC Hgb Hct RDW Plt Count Lymph % (Auto) Patrick % (Auto) Lymph # Patrick # Seg Neutrophils % Seg Neuts % (Manual) Lymphocytes % (Manual) Nucleated RBC % Seg Neutrophils # Seg Neutrophils # Man Lymphocytes # (Manual) D-Dimer POC ABG pH 7.483 H 7.499 H POC ABG pCO2 POC ABG pO2 VBG pH Sodium 147 H Potassium 3.2 L Chloride 115.8 H Carbon Dioxide BUN 23 H Creatinine Glucose 121 H POC Glucose Hemoglobin A1c Lactic Acid Calcium 8.1 L Phosphorus 2.30 L D Magnesium AST ALT Troponin T C-Reactive Protein Total Protein Albumin Triglycerides LDL Cholesterol Direct HDL Cholesterol Urine WBC (Auto) Salicylates Acetaminophen % CD3 Cells % CD19 Cells Absolute CD19 Count Miscellaneous Test Crossmatch 08/18/18 08/18/18 08/18/18 04:10 13:39 13:39 WBC RBC Hgb Hct RDW Plt Count Lymph % (Auto) Patrick % (Auto) Lymph # Patrick # Seg Neutrophils % Seg Neuts % (Manual) Lymphocytes % (Manual) Nucleated RBC % Seg Neutrophils # Seg Neutrophils # Man Lymphocytes # (Manual) D-Dimer POC ABG pH POC ABG pCO2 POC ABG pO2 VBG pH Sodium 147 H Potassium 3.3 L Chloride 111.9 H Carbon Dioxide BUN 21 H Creatinine Glucose 113 H POC Glucose Hemoglobin A1c Lactic Acid Calcium Phosphorus 1.50 L D Magnesium AST ALT Troponin T 0.317 H* D C-Reactive Protein 10.70 H Total Protein Albumin Triglycerides LDL Cholesterol Direct HDL Cholesterol Urine WBC (Auto) Salicylates Acetaminophen % CD3 Cells % CD19 Cells Absolute CD19 Count Miscellaneous Test Crossmatch 08/18/18 08/19/18 08/19/18 16:51 03:47 04:15 WBC RBC Hgb Hct RDW Plt Count Lymph % (Auto) Patrick % (Auto) Lymph # Patrick # Seg Neutrophils % Seg Neuts % (Manual) Lymphocytes % (Manual) Nucleated RBC % Seg Neutrophils # Seg Neutrophils # Man Lymphocytes # (Manual) D-Dimer POC ABG pH 7.454 H 7.482 H POC ABG pCO2 POC ABG pO2 65 L VBG pH Sodium 154 H Potassium 3.3 L Chloride 115.1 H Carbon Dioxide BUN 19 H Creatinine Glucose 117 H POC Glucose Hemoglobin A1c Lactic Acid Calcium 7.8 L Phosphorus Magnesium AST ALT Troponin T C-Reactive Protein Total Protein Albumin Triglycerides LDL Cholesterol Direct HDL Cholesterol Urine WBC (Auto) Salicylates Acetaminophen % CD3 Cells % CD19 Cells Absolute CD19 Count Miscellaneous Test Crossmatch 08/19/18 08/19/18 08/20/18 14:32 16:18 03:51 WBC RBC Hgb Hct RDW Plt Count Lymph % (Auto) Patrick % (Auto) Lymph # Patrick # Seg Neutrophils % Seg Neuts % (Manual) Lymphocytes % (Manual) Nucleated RBC % Seg Neutrophils # Seg Neutrophils # Man Lymphocytes # (Manual) D-Dimer POC ABG pH 7.483 H POC ABG pCO2 33.4 L POC ABG pO2 51 L 74 L VBG pH Sodium Potassium Chloride Carbon Dioxide BUN Creatinine Glucose POC Glucose Hemoglobin A1c Lactic Acid Calcium Phosphorus Magnesium AST ALT Troponin T C-Reactive Protein Total Protein Albumin Triglycerides LDL Cholesterol Direct HDL Cholesterol Urine WBC (Auto) Salicylates Acetaminophen % CD3 Cells 44 L % CD19 Cells 41 H Absolute CD19 Count 1290 H Miscellaneous Test Crossmatch 08/20/18 08/21/18 08/21/18 05:25 03:54 05:45 WBC 24.1 H RBC 2.83 L Hgb 8.8 L Hct 26.7 L RDW 15.7 H Plt Count 127 L Lymph % (Auto) Patrick % (Auto) Lymph # Patrick # Seg Neutrophils % Seg Neuts % (Manual) 94.0 H Lymphocytes % (Manual) 4.0 L Nucleated RBC % 1.0 H Seg Neutrophils # Seg Neutrophils # Man 22.7 H Lymphocytes # (Manual) 1.0 L D-Dimer POC ABG pH POC ABG pCO2 31.9 L POC ABG pO2 66 L VBG pH Sodium 146 H D Potassium Chloride 111.2 H Carbon Dioxide BUN 24 H Creatinine Glucose 141 H POC Glucose Hemoglobin A1c Lactic Acid Calcium 8.1 L Phosphorus Magnesium AST 65 H ALT 104 H Troponin T C-Reactive Protein Total Protein 6.2 L Albumin 2.6 L Triglycerides LDL Cholesterol Direct HDL Cholesterol Urine WBC (Auto) Salicylates Acetaminophen % CD3 Cells % CD19 Cells Absolute CD19 Count Miscellaneous Test Crossmatch 08/21/18 08/22/18 08/22/18 05:45 06:20 06:45 WBC RBC Hgb Hct RDW Plt Count Lymph % (Auto) Patrick % (Auto) Lymph # Patrick # Seg Neutrophils % Seg Neuts % (Manual) Lymphocytes % (Manual) Nucleated RBC % Seg Neutrophils # Seg Neutrophils # Man Lymphocytes # (Manual) D-Dimer POC ABG pH POC ABG pCO2 32.9 L POC ABG pO2 VBG pH Sodium Potassium 3.5 L Chloride 109.4 H 112.4 H Carbon Dioxide 21 L 20 L BUN 50 H 61 H Creatinine 2.0 H D 1.9 H Glucose 144 H 154 H POC Glucose Hemoglobin A1c Lactic Acid Calcium 7.6 L 7.8 L Phosphorus Magnesium AST ALT Troponin T C-Reactive Protein Total Protein 5.3 L Albumin 2.1 L Triglycerides LDL Cholesterol Direct HDL Cholesterol Urine WBC (Auto) Salicylates Acetaminophen % CD3 Cells % CD19 Cells Absolute CD19 Count Miscellaneous Test Crossmatch 08/22/18 08/22/18 08/22/18 06:45 15:29 18:40 WBC RBC Hgb Hct RDW Plt Count Lymph % (Auto) Patrick % (Auto) Lymph # Patrick # Seg Neutrophils % Seg Neuts % (Manual) Lymphocytes % (Manual) Nucleated RBC % Seg Neutrophils # Seg Neutrophils # Man Lymphocytes # (Manual) D-Dimer POC ABG pH POC ABG pCO2 POC ABG pO2 VBG pH Sodium Potassium Chloride Carbon Dioxide BUN Creatinine Glucose POC Glucose 169 H Hemoglobin A1c Lactic Acid Calcium Phosphorus Magnesium AST ALT Troponin T C-Reactive Protein 4.70 H Total Protein Albumin Triglycerides 197 H LDL Cholesterol Direct HDL Cholesterol Urine WBC (Auto) Salicylates Acetaminophen % CD3 Cells % CD19 Cells Absolute CD19 Count Miscellaneous Test Crossmatch 08/23/18 08/23/18 08/23/18 03:59 21:19 Unknown WBC 12.1 H RBC 2.29 L Hgb 7.1 L Hct 21.7 L RDW 15.7 H Plt Count 106 L Lymph % (Auto) Patrick % (Auto) Lymph # Patrick # Seg Neutrophils % Seg Neuts % (Manual) 92.0 H Lymphocytes % (Manual) 4.0 L Nucleated RBC % Seg Neutrophils # Seg Neutrophils # Man 11.1 H Lymphocytes # (Manual) 0.5 L D-Dimer POC ABG pH 7.306 L POC ABG pCO2 31.3 L POC ABG pO2 119 H 75 L VBG pH Sodium Potassium Chloride Carbon Dioxide BUN Creatinine Glucose POC Glucose Hemoglobin A1c Lactic Acid Calcium Phosphorus Magnesium AST ALT Troponin T C-Reactive Protein Total Protein Albumin Triglycerides LDL Cholesterol Direct HDL Cholesterol Urine WBC (Auto) Salicylates Acetaminophen % CD3 Cells % CD19 Cells Absolute CD19 Count Miscellaneous Test Crossmatch 08/23/18 08/24/18 08/24/18 Unknown 04:18 08:30 WBC 12.8 H RBC 2.24 L Hgb 7.0 L Hct 21.1 L RDW Plt Count Lymph % (Auto) Patrick % (Auto) Lymph # Patrick # Seg Neutrophils % Seg Neuts % (Manual) 93.0 H Lymphocytes % (Manual) 6.0 L Nucleated RBC % Seg Neutrophils # Seg Neutrophils # Man 11.9 H Lymphocytes # (Manual) 0.8 L D-Dimer POC ABG pH POC ABG pCO2 POC ABG pO2 78 L VBG pH Sodium Potassium Chloride 115.7 H Carbon Dioxide 21 L BUN 64 H Creatinine 2.0 H Glucose 149 H POC Glucose Hemoglobin A1c Lactic Acid Calcium 7.5 L Phosphorus Magnesium AST ALT Troponin T C-Reactive Protein Total Protein 4.8 L Albumin 2.0 L Triglycerides LDL Cholesterol Direct HDL Cholesterol Urine WBC (Auto) Salicylates Acetaminophen % CD3 Cells % CD19 Cells Absolute CD19 Count Miscellaneous Test Crossmatch 08/24/18 08/24/18 08/24/18 08:30 17:44 18:28 WBC RBC Hgb Hct RDW Plt Count Lymph % (Auto) Patrick % (Auto) Lymph # Patrick # Seg Neutrophils % Seg Neuts % (Manual) Lymphocytes % (Manual) Nucleated RBC % Seg Neutrophils # Seg Neutrophils # Man Lymphocytes # (Manual) D-Dimer POC ABG pH 7.474 H POC ABG pCO2 POC ABG pO2 61 L VBG pH Sodium Potassium Chloride 108.3 H Carbon Dioxide 20 L BUN 65 H Creatinine 2.0 H Glucose 167 H POC Glucose 164 H Hemoglobin A1c Lactic Acid Calcium 7.7 L Phosphorus Magnesium AST ALT Troponin T C-Reactive Protein Total Protein 5.3 L Albumin 2.2 L Triglycerides LDL Cholesterol Direct HDL Cholesterol Urine WBC (Auto) Salicylates Acetaminophen % CD3 Cells % CD19 Cells Absolute CD19 Count Miscellaneous Test Crossmatch 08/25/18 08/25/18 08/25/18 03:35 05:20 05:20 WBC RBC Hgb 6.7 L Hct 21.0 L RDW Plt Count Lymph % (Auto) Patrick % (Auto) Lymph # Patrick # Seg Neutrophils % Seg Neuts % (Manual) Lymphocytes % (Manual) Nucleated RBC % Seg Neutrophils # Seg Neutrophils # Man Lymphocytes # (Manual) D-Dimer POC ABG pH POC ABG pCO2 POC ABG pO2 79 L VBG pH Sodium Potassium Chloride Carbon Dioxide 21 L BUN 71 H Creatinine 3.1 H D Glucose 171 H POC Glucose Hemoglobin A1c Lactic Acid Calcium 7.5 L Phosphorus Magnesium AST ALT Troponin T C-Reactive Protein Total Protein Albumin Triglycerides LDL Cholesterol Direct HDL Cholesterol Urine WBC (Auto) Salicylates Acetaminophen % CD3 Cells % CD19 Cells Absolute CD19 Count Miscellaneous Test Crossmatch 08/25/18 08/25/18 08/25/18 05:20 08:52 12:42 WBC RBC Hgb Hct RDW Plt Count Lymph % (Auto) Patrick % (Auto) Lymph # Patrick # Seg Neutrophils % Seg Neuts % (Manual) Lymphocytes % (Manual) Nucleated RBC % Seg Neutrophils # Seg Neutrophils # Man Lymphocytes # (Manual) D-Dimer POC ABG pH POC ABG pCO2 POC ABG pO2 VBG pH Sodium Potassium Chloride Carbon Dioxide BUN Creatinine Glucose POC Glucose 166 H Hemoglobin A1c Lactic Acid Calcium Phosphorus Magnesium AST ALT Troponin T C-Reactive Protein 5.00 H Total Protein Albumin Triglycerides LDL Cholesterol Direct HDL Cholesterol Urine WBC (Auto) Salicylates Acetaminophen % CD3 Cells % CD19 Cells Absolute CD19 Count Miscellaneous Test Crossmatch See Detail 08/25/18 08/26/18 08/26/18 18:05 00:13 04:53 WBC RBC Hgb Hct RDW Plt Count Lymph % (Auto) Patrick % (Auto) Lymph # Patrick # Seg Neutrophils % Seg Neuts % (Manual) Lymphocytes % (Manual) Nucleated RBC % Seg Neutrophils # Seg Neutrophils # Man Lymphocytes # (Manual) D-Dimer POC ABG pH POC ABG pCO2 30.9 L POC ABG pO2 70 L VBG pH Sodium Potassium Chloride Carbon Dioxide BUN Creatinine Glucose POC Glucose 121 H 164 H Hemoglobin A1c Lactic Acid Calcium Phosphorus Magnesium AST ALT Troponin T C-Reactive Protein Total Protein Albumin Triglycerides LDL Cholesterol Direct HDL Cholesterol Urine WBC (Auto) Salicylates Acetaminophen % CD3 Cells % CD19 Cells Absolute CD19 Count Miscellaneous Test Crossmatch 08/26/18 08/26/18 08/26/18 05:42 06:00 06:00 WBC RBC 2.62 L Hgb 7.7 L Hct 23.0 L RDW 22.0 H Plt Count Lymph % (Auto) 6.3 L Patrick % (Auto) Lymph # 0.7 L Patrick # Seg Neutrophils % 88.1 H Seg Neuts % (Manual) Lymphocytes % (Manual) Nucleated RBC % Seg Neutrophils # 9.6 H Seg Neutrophils # Man Lymphocytes # (Manual) D-Dimer POC ABG pH POC ABG pCO2 POC ABG pO2 VBG pH Sodium Potassium Chloride Carbon Dioxide 21 L BUN 70 H Creatinine 3.3 H Glucose 146 H POC Glucose 149 H Hemoglobin A1c Lactic Acid Calcium 8.0 L Phosphorus Magnesium AST ALT Troponin T C-Reactive Protein Total Protein Albumin Triglycerides LDL Cholesterol Direct HDL Cholesterol Urine WBC (Auto) Salicylates Acetaminophen % CD3 Cells % CD19 Cells Absolute CD19 Count Miscellaneous Test Crossmatch 08/26/18 08/26/18 08/27/18 11:37 23:54 04:35 WBC RBC 2.50 L Hgb 7.6 L Hct 22.3 L RDW 21.8 H Plt Count Lymph % (Auto) 7.3 L Patrick % (Auto) Lymph # 0.7 L Patrick # Seg Neutrophils % 85.6 H Seg Neuts % (Manual) Lymphocytes % (Manual) Nucleated RBC % Seg Neutrophils # 8.6 H Seg Neutrophils # Man Lymphocytes # (Manual) D-Dimer POC ABG pH POC ABG pCO2 POC ABG pO2 VBG pH Sodium Potassium Chloride Carbon Dioxide BUN Creatinine Glucose POC Glucose 183 H 150 H Hemoglobin A1c Lactic Acid Calcium Phosphorus Magnesium AST ALT Troponin T C-Reactive Protein Total Protein Albumin Triglycerides LDL Cholesterol Direct HDL Cholesterol Urine WBC (Auto) Salicylates Acetaminophen % CD3 Cells % CD19 Cells Absolute CD19 Count Miscellaneous Test Crossmatch 08/27/18 08/27/18 08/28/18 04:35 12:17 04:43 WBC RBC Hgb Hct RDW Plt Count Lymph % (Auto) Patrick % (Auto) Lymph # Patrick # Seg Neutrophils % Seg Neuts % (Manual) Lymphocytes % (Manual) Nucleated RBC % Seg Neutrophils # Seg Neutrophils # Man Lymphocytes # (Manual) D-Dimer POC ABG pH POC ABG pCO2 32.1 L 33.8 L POC ABG pO2 68 L 78 L VBG pH Sodium Potassium Chloride Carbon Dioxide 19 L BUN 67 H Creatinine 2.9 H Glucose 155 H POC Glucose Hemoglobin A1c Lactic Acid Calcium Phosphorus 4.70 H Magnesium AST ALT Troponin T C-Reactive Protein Total Protein Albumin Triglycerides LDL Cholesterol Direct HDL Cholesterol Urine WBC (Auto) Salicylates Acetaminophen % CD3 Cells % CD19 Cells Absolute CD19 Count Miscellaneous Test Crossmatch 08/28/18 08/28/18 08/28/18 05:03 05:20 05:20 WBC RBC 2.43 L Hgb 7.4 L Hct 21.8 L RDW 20.8 H Plt Count Lymph % (Auto) 7.6 L Patrick % (Auto) 8.7 H Lymph # 0.7 L Patrick # Seg Neutrophils % 82.9 H Seg Neuts % (Manual) Lymphocytes % (Manual) Nucleated RBC % Seg Neutrophils # Seg Neutrophils # Man Lymphocytes # (Manual) D-Dimer POC ABG pH POC ABG pCO2 POC ABG pO2 VBG pH Sodium Potassium Chloride 107.8 H Carbon Dioxide 21 L BUN 55 H Creatinine 2.0 H Glucose 177 H POC Glucose 160 H Hemoglobin A1c Lactic Acid Calcium Phosphorus Magnesium AST ALT Troponin T C-Reactive Protein Total Protein Albumin Triglycerides LDL Cholesterol Direct HDL Cholesterol Urine WBC (Auto) Salicylates Acetaminophen % CD3 Cells % CD19 Cells Absolute CD19 Count Miscellaneous Test Crossmatch 08/28/18 08/28/18 08/28/18 12:18 18:58 22:31 WBC RBC Hgb Hct RDW Plt Count Lymph % (Auto) Patrick % (Auto) Lymph # Patrick # Seg Neutrophils % Seg Neuts % (Manual) Lymphocytes % (Manual) Nucleated RBC % Seg Neutrophils # Seg Neutrophils # Man Lymphocytes # (Manual) D-Dimer POC ABG pH POC ABG pCO2 34.4 L POC ABG pO2 67 L VBG pH Sodium Potassium Chloride Carbon Dioxide BUN Creatinine Glucose POC Glucose 164 H 149 H Hemoglobin A1c Lactic Acid Calcium Phosphorus Magnesium AST ALT Troponin T C-Reactive Protein Total Protein Albumin Triglycerides LDL Cholesterol Direct HDL Cholesterol Urine WBC (Auto) Salicylates Acetaminophen % CD3 Cells % CD19 Cells Absolute CD19 Count Miscellaneous Test Crossmatch 08/28/18 08/29/18 08/29/18 23:33 05:25 05:25 WBC RBC 2.30 L Hgb 7.0 L Hct 20.9 L RDW 21.0 H Plt Count Lymph % (Auto) 11.5 L Patrick % (Auto) 9.2 H Lymph # 0.8 L Patrick # Seg Neutrophils % 78.8 H Seg Neuts % (Manual) Lymphocytes % (Manual) Nucleated RBC % Seg Neutrophils # Seg Neutrophils # Man Lymphocytes # (Manual) D-Dimer POC ABG pH POC ABG pCO2 POC ABG pO2 VBG pH Sodium Potassium Chloride 111.1 H Carbon Dioxide BUN 55 H Creatinine 1.8 H Glucose 162 H POC Glucose 143 H Hemoglobin A1c Lactic Acid Calcium Phosphorus Magnesium AST 46 H ALT < 5 L Troponin T C-Reactive Protein Total Protein 5.7 L Albumin 2.1 L Triglycerides LDL Cholesterol Direct HDL Cholesterol Urine WBC (Auto) Salicylates Acetaminophen % CD3 Cells % CD19 Cells Absolute CD19 Count Miscellaneous Test Crossmatch 08/29/18 08/29/18 08/30/18 18:19 23:35 05:03 WBC RBC Hgb Hct RDW Plt Count Lymph % (Auto) Patrick % (Auto) Lymph # Patrick # Seg Neutrophils % Seg Neuts % (Manual) Lymphocytes % (Manual) Nucleated RBC % Seg Neutrophils # Seg Neutrophils # Man Lymphocytes # (Manual) D-Dimer POC ABG pH POC ABG pCO2 POC ABG pO2 VBG pH Sodium Potassium Chloride Carbon Dioxide BUN Creatinine Glucose POC Glucose 155 H 139 H 122 H Hemoglobin A1c Lactic Acid Calcium Phosphorus Magnesium AST ALT Troponin T C-Reactive Protein Total Protein Albumin Triglycerides LDL Cholesterol Direct HDL Cholesterol Urine WBC (Auto) Salicylates Acetaminophen % CD3 Cells % CD19 Cells Absolute CD19 Count Miscellaneous Test Crossmatch 08/30/18 08/30/18 08/30/18 09:33 09:33 09:54 WBC RBC 2.58 L Hgb 7.9 L Hct 23.5 L RDW 20.9 H Plt Count Lymph % (Auto) 8.0 L Patrick % (Auto) 9.7 H Lymph # 0.8 L Patrick # 1.0 H Seg Neutrophils % 82.1 H Seg Neuts % (Manual) Lymphocytes % (Manual) Nucleated RBC % Seg Neutrophils # 8.2 H Seg Neutrophils # Man Lymphocytes # (Manual) D-Dimer POC ABG pH POC ABG pCO2 POC ABG pO2 VBG pH Sodium 146 H Potassium Chloride 110.7 H Carbon Dioxide BUN 56 H Creatinine 1.9 H Glucose 145 H POC Glucose Hemoglobin A1c Lactic Acid Calcium Phosphorus 4.60 H Magnesium AST ALT < 5 L Troponin T C-Reactive Protein Total Protein Albumin 2.7 L Triglycerides LDL Cholesterol Direct HDL Cholesterol Urine WBC (Auto) Salicylates Acetaminophen % CD3 Cells % CD19 Cells Absolute CD19 Count Miscellaneous Test Flexitest 1 H Crossmatch 08/30/18 08/30/18 08/30/18 09:57 11:26 18:08 WBC RBC Hgb Hct RDW Plt Count Lymph % (Auto) Patrick % (Auto) Lymph # Patrick # Seg Neutrophils % Seg Neuts % (Manual) Lymphocytes % (Manual) Nucleated RBC % Seg Neutrophils # Seg Neutrophils # Man Lymphocytes # (Manual) D-Dimer POC ABG pH POC ABG pCO2 POC ABG pO2 VBG pH Sodium Potassium Chloride Carbon Dioxide BUN Creatinine Glucose POC Glucose 149 H 156 H Hemoglobin A1c Lactic Acid Calcium Phosphorus Magnesium AST ALT Troponin T C-Reactive Protein Total Protein Albumin Triglycerides LDL Cholesterol Direct HDL Cholesterol Urine WBC (Auto) Salicylates Acetaminophen % CD3 Cells % CD19 Cells Absolute CD19 Count Miscellaneous Test Flexitest 1 H Crossmatch 08/30/18 08/31/18 08/31/18 23:14 05:16 08:40 WBC RBC Hgb Hct RDW Plt Count Lymph % (Auto) Patrick % (Auto) Lymph # Patrick # Seg Neutrophils % Seg Neuts % (Manual) Lymphocytes % (Manual) Nucleated RBC % Seg Neutrophils # Seg Neutrophils # Man Lymphocytes # (Manual) D-Dimer POC ABG pH POC ABG pCO2 POC ABG pO2 VBG pH Sodium 151 H Potassium Chloride 113.8 H Carbon Dioxide BUN 45 H Creatinine Glucose 144 H POC Glucose 117 H 133 H Hemoglobin A1c Lactic Acid Calcium Phosphorus Magnesium AST ALT Troponin T C-Reactive Protein Total Protein Albumin Triglycerides LDL Cholesterol Direct HDL Cholesterol Urine WBC (Auto) Salicylates Acetaminophen % CD3 Cells % CD19 Cells Absolute CD19 Count Miscellaneous Test Crossmatch 08/31/18 09/01/18 09/01/18 23:46 04:45 04:45 WBC RBC 2.38 L Hgb 7.3 L Hct 22.1 L RDW 21.1 H Plt Count Lymph % (Auto) Patrick % (Auto) Lymph # Patrick # Seg Neutrophils % Seg Neuts % (Manual) 93.0 H Lymphocytes % (Manual) 4.0 L Nucleated RBC % Seg Neutrophils # Seg Neutrophils # Man 10.1 H Lymphocytes # (Manual) 0.4 L D-Dimer POC ABG pH POC ABG pCO2 POC ABG pO2 VBG pH Sodium 156 H Potassium 3.1 L Chloride 115.2 H Carbon Dioxide BUN 34 H Creatinine Glucose 125 H POC Glucose 124 H Hemoglobin A1c Lactic Acid Calcium Phosphorus Magnesium AST ALT Troponin T C-Reactive Protein Total Protein Albumin Triglycerides LDL Cholesterol Direct HDL Cholesterol Urine WBC (Auto) Salicylates Acetaminophen % CD3 Cells % CD19 Cells Absolute CD19 Count Miscellaneous Test Crossmatch 09/01/18 09/01/18 09/01/18 05:34 11:20 17:52 WBC RBC Hgb Hct RDW Plt Count Lymph % (Auto) Patrick % (Auto) Lymph # Patrick # Seg Neutrophils % Seg Neuts % (Manual) Lymphocytes % (Manual) Nucleated RBC % Seg Neutrophils # Seg Neutrophils # Man Lymphocytes # (Manual) D-Dimer POC ABG pH 7.553 H POC ABG pCO2 POC ABG pO2 74 L VBG pH Sodium Potassium Chloride Carbon Dioxide BUN Creatinine Glucose POC Glucose 128 H 146 H Hemoglobin A1c Lactic Acid Calcium Phosphorus Magnesium AST ALT Troponin T C-Reactive Protein Total Protein Albumin Triglycerides LDL Cholesterol Direct HDL Cholesterol Urine WBC (Auto) Salicylates Acetaminophen % CD3 Cells % CD19 Cells Absolute CD19 Count Miscellaneous Test Crossmatch 09/01/18 09/02/18 09/02/18 17:52 04:13 04:58 WBC 16.4 H RBC 2.64 L Hgb 7.9 L Hct 24.3 L RDW 20.8 H Plt Count Lymph % (Auto) Patrick % (Auto) Lymph # Patrick # Seg Neutrophils % Seg Neuts % (Manual) 96.0 H Lymphocytes % (Manual) 1.0 L Nucleated RBC % Seg Neutrophils # Seg Neutrophils # Man 15.7 H Lymphocytes # (Manual) 0.2 L D-Dimer POC ABG pH 7.488 H POC ABG pCO2 POC ABG pO2 63 L VBG pH Sodium Potassium Chloride Carbon Dioxide BUN Creatinine Glucose POC Glucose 143 H Hemoglobin A1c Lactic Acid Calcium Phosphorus Magnesium AST ALT Troponin T C-Reactive Protein Total Protein Albumin Triglycerides LDL Cholesterol Direct HDL Cholesterol Urine WBC (Auto) Salicylates Acetaminophen % CD3 Cells % CD19 Cells Absolute CD19 Count Miscellaneous Test Crossmatch 09/02/18 09/02/18 09/02/18 04:58 11:03 18:18 WBC RBC Hgb Hct RDW Plt Count Lymph % (Auto) Patrick % (Auto) Lymph # Patrick # Seg Neutrophils % Seg Neuts % (Manual) Lymphocytes % (Manual) Nucleated RBC % Seg Neutrophils # Seg Neutrophils # Man Lymphocytes # (Manual) D-Dimer POC ABG pH 7.344 L POC ABG pCO2 52.8 H POC ABG pO2 VBG pH Sodium 158 H Potassium 2.9 L* Chloride 115.7 H Carbon Dioxide BUN 27 H Creatinine 0.6 L Glucose 128 H POC Glucose 121 H Hemoglobin A1c Lactic Acid Calcium Phosphorus Magnesium 1.60 L AST 64 H ALT Troponin T C-Reactive Protein Total Protein Albumin 2.6 L Triglycerides LDL Cholesterol Direct HDL Cholesterol Urine WBC (Auto) Salicylates Acetaminophen % CD3 Cells % CD19 Cells Absolute CD19 Count Miscellaneous Test Crossmatch 09/02/18 09/03/18 09/03/18 23:06 03:36 04:25 WBC RBC 2.20 L Hgb 6.7 L Hct 20.9 L RDW 21.1 H Plt Count Lymph % (Auto) Patrick % (Auto) Lymph # Patrick # Seg Neutrophils % Seg Neuts % (Manual) 90.0 H Lymphocytes % (Manual) 5.0 L Nucleated RBC % Seg Neutrophils # Seg Neutrophils # Man 8.7 H Lymphocytes # (Manual) 0.5 L D-Dimer POC ABG pH POC ABG pCO2 POC ABG pO2 54 L VBG pH Sodium Potassium Chloride Carbon Dioxide BUN Creatinine Glucose POC Glucose 121 H Hemoglobin A1c Lactic Acid Calcium Phosphorus Magnesium AST ALT Troponin T C-Reactive Protein Total Protein Albumin Triglycerides LDL Cholesterol Direct HDL Cholesterol Urine WBC (Auto) Salicylates Acetaminophen % CD3 Cells % CD19 Cells Absolute CD19 Count Miscellaneous Test Crossmatch 09/03/18 09/03/18 09/03/18 04:25 05:45 10:24 WBC RBC Hgb Hct RDW Plt Count Lymph % (Auto) Patrick % (Auto) Lymph # Patrick # Seg Neutrophils % Seg Neuts % (Manual) Lymphocytes % (Manual) Nucleated RBC % Seg Neutrophils # Seg Neutrophils # Man Lymphocytes # (Manual) D-Dimer POC ABG pH POC ABG pCO2 POC ABG pO2 VBG pH Sodium 158 H Potassium 3.1 L Chloride 120.4 H Carbon Dioxide BUN 25 H Creatinine 0.6 L Glucose 127 H POC Glucose 178 H Hemoglobin A1c Lactic Acid Calcium 7.9 L Phosphorus Magnesium AST ALT Troponin T C-Reactive Protein Total Protein 6.0 L Albumin 2.4 L Triglycerides LDL Cholesterol Direct HDL Cholesterol Urine WBC (Auto) Salicylates Acetaminophen % CD3 Cells % CD19 Cells Absolute CD19 Count Miscellaneous Test Crossmatch See Detail 09/03/18 09/03/18 09/04/18 11:27 23:09 04:42 WBC RBC Hgb Hct RDW Plt Count Lymph % (Auto) Patrick % (Auto) Lymph # Patrick # Seg Neutrophils % Seg Neuts % (Manual) Lymphocytes % (Manual) Nucleated RBC % Seg Neutrophils # Seg Neutrophils # Man Lymphocytes # (Manual) D-Dimer POC ABG pH 7.293 L POC ABG pCO2 50.2 H POC ABG pO2 VBG pH Sodium Potassium Chloride Carbon Dioxide BUN Creatinine Glucose POC Glucose 107 H 139 H Hemoglobin A1c Lactic Acid Calcium Phosphorus Magnesium AST ALT Troponin T C-Reactive Protein Total Protein Albumin Triglycerides LDL Cholesterol Direct HDL Cholesterol Urine WBC (Auto) Salicylates Acetaminophen % CD3 Cells % CD19 Cells Absolute CD19 Count Miscellaneous Test Crossmatch 09/04/18 09/04/18 09/04/18 05:00 06:30 06:30 WBC RBC 2.32 L Hgb 7.0 L Hct 21.9 L RDW 20.2 H Plt Count Lymph % (Auto) Patrick % (Auto) Lymph # Patrick # Seg Neutrophils % 80.1 H Seg Neuts % (Manual) Lymphocytes % (Manual) Nucleated RBC % Seg Neutrophils # 8.2 H Seg Neutrophils # Man Lymphocytes # (Manual) D-Dimer POC ABG pH POC ABG pCO2 POC ABG pO2 VBG pH Sodium 150 H D Potassium Chloride 115.9 H Carbon Dioxide BUN 21 H Creatinine 0.6 L Glucose 125 H POC Glucose 154 H Hemoglobin A1c Lactic Acid Calcium 7.9 L Phosphorus Magnesium 1.50 L AST ALT Troponin T C-Reactive Protein Total Protein Albumin Triglycerides LDL Cholesterol Direct HDL Cholesterol Urine WBC (Auto) Salicylates Acetaminophen % CD3 Cells % CD19 Cells Absolute CD19 Count Miscellaneous Test Crossmatch 09/04/18 09/04/18 11:20 11:51 WBC RBC Hgb Hct RDW Plt Count Lymph % (Auto) Patrick % (Auto) Lymph # Patrick # Seg Neutrophils % Seg Neuts % (Manual) Lymphocytes % (Manual) Nucleated RBC % Seg Neutrophils # Seg Neutrophils # Man Lymphocytes # (Manual) D-Dimer POC ABG pH 7.244 L POC ABG pCO2 54.2 H POC ABG pO2 62 L VBG pH Sodium Potassium Chloride Carbon Dioxide BUN Creatinine Glucose POC Glucose 156 H Hemoglobin A1c Lactic Acid Calcium Phosphorus Magnesium AST ALT Troponin T C-Reactive Protein Total Protein Albumin Triglycerides LDL Cholesterol Direct HDL Cholesterol Urine WBC (Auto) Salicylates Acetaminophen % CD3 Cells % CD19 Cells Absolute CD19 Count Miscellaneous Test Crossmatch Chest x-ray: image reviewed Allied health notes reviewed: RT
[2018-09-04] MEDS ORDERED: D5NS 0.2% 1,000 ML IV SCH (15:00)
--- NOTE | 2018-09-04 16:08 | Progress Note ---
Assessment and Plan Cultures: 08/15/2018 blood culture: Camryn glabrata 1 of 4 08/15/2018 sputum culture: MSSA and Escherichia coli, wade susceptible 08/18/2018 blood culture: no growth 08/18/2018 urine culture: neg 08/22/2018 blood culture: no growth 08/25/2018 blood culture: no growth 09/02/2018 BAL cultures: in process. No growth thus far. 09/04/2018 blood culture: in process 09/04/2018 trach aspirate: in process A/P: 68-year-old female with COPD, arthritis, history of multiple spinal surgeries was brought to the emergency room on 08/15/2018 with altered mental status: 1) Sepsis with septic shock: resolved. 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 Patient without any history of indwelling PICC line, TPN or immunocompromised status. reported severe explosive diarrhea, N/V before admission after taken 4 days of amoxicillin for dental implant on 07/29/2018 and had a EGD / colonoscopy on 08/08/2018 at [place] by Dr Alcantara. I reviewed report - mild chronic gastritis, focal intestinal metaplasia, squamocolumnar mucosa with mild reflux-type changes, and tubular adenoma. -s/p fluconazole 800 mg loading dose then micafungin, s/p amphotericin D6 on 08/26 -serum Crypto negative. -08/15/2018 blood culture: Camryn glabrata -08/18/2018 blood culture: no growth today -CTA chest showed limited study due to respiratory motion artifact. No evidence of pulmonary embolism. Abnormal bilateral lung consolidation which may represent pulmonary edema or pneumonia. Mild cardiomegaly. Indeterminant mediastinal lymph nodes. -CT abdomen showed extensive bilateral lower lobe pulmonary infiltrates, rectal tube and Dodge catheter noted. NG tube at gastric antrum. Left hip prosthesis Extensive degenerative changes noted lumbar spine -TTE EF 25-30% no vegetations -HIV neg/ CD4 1004 -reviewed CT chest abd done 01/05/2019 showed cholecystectomy, mild fatty liver, postoperative changes of lumbar laminectomy with non specific fluid, 9 mm LLL pulmonary nodule which was compared to previous CT and was stable. -CRP 10-->5 3) Acute renal failure: On admission: Nephrology following. 4) Acute respiratory failure: Back on the vent. Recently completed pneumonia treatment. WBC up and low grade fever. Underwent bronch + BAL on 09/02/2018. follow up cultures. On abx. 5) Right maxillary sinusitis: received empiric abx. 6) Acute encephalopathy: Likely multifactorial. CT head unremarkable for acute intracranial process. Improving. 7) Cardiomyopathy, LVEF 25-30% this admission. 8) H/O left hip prosthesis ? XR no effusion. CT no enhancement 9) DVT: on anticoagulation. Recs: follow up BAL, blood cultures given persistent fevers, will switch to IV Meropenem continue IV Vancomycin continue IV Micafungin MD [facility] C: [phone] O: [phone] F: [phone] Subjective Date of service: 09/04/18 Principal diagnosis: Acute hypoxemic hypercapnic Resp failure; AE-COPD; Acute kidney injury Interval history: Remains on the vent. Spiking fevers. Objective - Exam Narrative Exam: Physical Exam: Constitutional: sedated, intubated Head, Ears, Nose: Normocephalic, atraumatic. External ears, nose normal Eyes: Conjunctivae/corneas clear. No icterus. No ptosis. Neck: Supple, no meningeal signs Oral: intubated Cardiovascular: S1, S2 normal. Respiratory: coarse breath sounds b/l, equal bilaterally GI: Soft, bowel sounds normal. No peritoneal signs. Musculoskeletal: No pedal edema, no cyanosis. Skin: No rash or abscess Hem/Lymphatic: No palpable cervical or supraclavicular nodes. No lymphangitis Psych: no agitation Neurological: sedated, intubated - Constitutional Vitals: Vital Signs Temp Pulse Resp BP Pulse Ox 99.3 F 74 26 H 135/78 100 09/04/18 13:20 09/04/18 15:32 09/04/18 13:15 09/04/18 15:32 09/04/18 13:15 Temperature -Last 24 Hours Temperature 99.3 F Temperature 99.3 F Temperature 102.1 F Temperature 99.8 F Temperature 100.1 F Temperature 99.6 F Temperature 99.9 F Temperature 99.6 F Temperature 99.8 F Temperature 99.9 F Temperature 99.9 F Temperature 99.6 F Temperature 99.6 F - Labs CBC & Chem 7: 09/04/18 06:30 09/04/18 06:30 Labs: Abnormal lab results 08/25/18 09/03/18 09/03/18 Range/Units 08:52 10:24 23:09 RBC (3.65-5.03) M/mm3 Hgb (10.1-14.3) gm/dl Hct (30.3-42.9) % RDW (13.2-15.2) % Seg Neutrophils % (40.0-70.0) % Seg Neutrophils # (1.8-7.7) K/mm3 POC ABG pH (7.35-7.45) POC ABG pCO2 (35-45) POC ABG pO2 (80-105) Sodium (137-145) mmol/L Chloride (98-107) mmol/L BUN (7-17) mg/dL Creatinine (0.7-1.2) mg/dL Glucose (65-100) mg/dL POC Glucose 139 H (70-105) Calcium (8.4-10.2) mg/dL Magnesium (1.7-2.3) mg/dL Crossmatch See Detail See Detail 09/04/18 09/04/18 09/04/18 Range/Units 04:42 05:00 06:30 RBC 2.32 L (3.65-5.03) M/mm3 Hgb 7.0 L (10.1-14.3) gm/dl Hct 21.9 L (30.3-42.9) % RDW 20.2 H (13.2-15.2) % Seg Neutrophils % 80.1 H (40.0-70.0) % Seg Neutrophils # 8.2 H (1.8-7.7) K/mm3 POC ABG pH 7.293 L (7.35-7.45) POC ABG pCO2 50.2 H (35-45) POC ABG pO2 (80-105) Sodium (137-145) mmol/L Chloride (98-107) mmol/L BUN (7-17) mg/dL Creatinine (0.7-1.2) mg/dL Glucose (65-100) mg/dL POC Glucose 154 H (70-105) Calcium (8.4-10.2) mg/dL Magnesium (1.7-2.3) mg/dL Crossmatch 09/04/18 09/04/18 09/04/18 Range/Units 06:30 11:20 11:51 RBC (3.65-5.03) M/mm3 Hgb (10.1-14.3) gm/dl Hct (30.3-42.9) % RDW (13.2-15.2) % Seg Neutrophils % (40.0-70.0) % Seg Neutrophils # (1.8-7.7) K/mm3 POC ABG pH 7.244 L (7.35-7.45) POC ABG pCO2 54.2 H (35-45) POC ABG pO2 62 L (80-105) Sodium 150 H D (137-145) mmol/L Chloride 115.9 H (98-107) mmol/L BUN 21 H (7-17) mg/dL Creatinine 0.6 L (0.7-1.2) mg/dL Glucose 125 H (65-100) mg/dL POC Glucose 156 H (70-105) Calcium 7.9 L (8.4-10.2) mg/dL Magnesium 1.50 L (1.7-2.3) mg/dL Crossmatch - Imaging and cardiology Chest x-ray: report reviewed, image reviewed (bilateral opacities, appear unchanged.)
[2018-09-04] MEDS: MERREM 1,000 MG in NACL 0.9% 100 ML IV SCH (18:11)
[2018-09-04] MEDS: HumaLOG SUB-Q SCH (18:25)
[2018-09-05] MEDS: NACL IV SCH (01:20)
[2018-09-05] MEDS: KCL IV SCH (01:20)
[2018-09-05] MEDS: D5W IV SCH (01:20)
[2018-09-05] MEDS: fentaNYL DRIP Premix 2,000 MCG/100 ML BAG IV SCH ×5 (01:20→21:09)
[2018-09-05] MEDS: HumaLOG SUB-Q SCH ×4 (01:21→18:25)
[2018-09-05] MEDS: DUONEB *Not for PRN Use IH SCH ×4 (02:08→19:26)
[2018-09-05] MEDS: MERREM 1,000 MG in NACL 0.9% 100 ML IV SCH ×3 (02:34→18:20)
[2018-09-05 04:37] LABS: Basophils % (Auto) 0.1 % (0.0-1.8); Hematocrit 20.1 % (30.3-42.9); Hemoglobin 6.4 gm/dl (10.1-14.3); Lymphocytes # (Auto) 0.9 K/mm3 (1.2-5.4); Mean Corpuscular HGB Conc 32 % (30-34); Mean Corpuscular Volume 95 fl (79-97); Monocytes # (Auto) 0.3 K/mm3 (0.0-0.8); Monocytes % (Auto) 4.2 % (0.0-7.3); Platelet Count 117 K/mm3 (140-440); Red Blood Count 2.13 M/mm3 (3.65-5.03); Red Cell Distribution Width 19.9 % (13.2-15.2)
[2018-09-05 04:50] LABS: BUN/Creatinine Ratio 29; Blood Urea Nitrogen 20 mg/dL (7-17); Calcium 7.8 mg/dL (8.4-10.2); Hemolysis Index 3
[2018-09-05] MEDS: VANCOMYCIN 1,500 MG in NACL 0.9% 500 ML 500 ML IV SCH ×2 (06:28→16:15)
[2018-09-05] MEDS: APRESOLINE PO SCH ×3 (06:29→21:18)
[2018-09-05] MEDS ORDERED: KIONEX PO ONE (06:57)
[2018-09-05] MEDS ORDERED: MAGNESIUM SULFATE 2GM/50ML 2 GM/50 ML BAG IV ONE ×2 (07:08→09:00)
[2018-09-05] MEDS: PULMICORT IH SCH ×2 (08:14→19:26)
[2018-09-05] MEDS: BROVANA NEBU IH SCH ×2 (08:14→19:25)
[2018-09-05] MEDS ORDERED: NACL 0.9% 500 ML 500 ML IV ONE (09:00)
[2018-09-05] MEDS: MORPHINE IV PRN (09:26)
--- NOTE | 2018-09-05 09:40 | Progress Note ---
Assessment and Plan Assessment and plan: --Anemia; hemoglobin 6.4, no external evidence of bleeding Patient already received 2 units PRBC in the past Stool for occult blood x 2 negative Type and cross transfuse 1 unit PRBC Consider GI evaluation if needed --Febrile illness; afebrile Already on antibiotics, follow cultures, chest x-ray; airspace disease Supportive care, ID following --Hypomagnesemia; replace with 2 g mag sulfate, follow levels --Hypernatremia; resolved, --Acute hypoxic hypercapnic respiratory failure; extubated 08/29/18 Re Intubated 09/02/18 secondary to acute respiratory failure .n vent Status post bronchoscopy, findings reviewed, BAL sent for histopathology nebulizers, IV antibiotics, pulmonary critical following Wean as tolerated and extubated --Anemia; received total 2 unit of PRBC , Hb today 6.4 --Left lower extremity DVT; anticoagulation with Lovenox Check CTA chest to rule out PE --Sepsis; secondary to aspiration pneumonia, --Aspiration pneumonia; on micafungin, ID again started cefepime and Vanco --Hypertension; continue current antihypertensives --Severe malnutrition/hypoalbuminemia; Dietitian following and supportive care --Acute kidney injury; probably secondary to ATN Resolved, avoid nephrotoxins --Acute systolic congestive heart failure; Ejection fraction 25-30%, continue current management Cardiology following --Elevated Transaminases; resolved --DVT prophylaxis; Lovenox Consults and recommendations noted and appreciated Plan of care reviewed with the patient's nurse The high probability of a clinically significant, sudden or life threatening deterioration of the [respiratory, cardiology, ID, renal and metabolic] system(s) required my full and direct attention, intervention and personal management. The aggregate critical care time was [33] minutes. This time is in addition to time spent performing reported procedures but includes the following: [x] Data Review and interpretation [x] Patient assessment and monitoring of vital signs [x] Documentation [x] Medication orders and management History Interval history: Patient seen and examined medical records reviewed Patient remains intubated on ventilator support, her restless and agitated No new events reported by the nursing staff Afebrile vital signs reviewed Mild drop in H&H, no external evidence of bleeding Hospitalist Physical - Constitutional Vitals: Temp Pulse Resp BP Pulse Ox 98.8 F 91 H 39 H 116/52 100 09/05/18 04:00 09/05/18 08:29 09/05/18 09:26 09/05/18 08:29 09/05/18 08:29 General appearance: Present: mild distress, well-nourished, other (intubated on vent) - EENT Eyes: Present: PERRL, EOM intact - Neck Neck: Present: supple, normal ROM, other (ET tube and Dobbhoff in place) - Respiratory Respiratory effort: normal Respiratory: bilateral: diminished, rhonchi, negative: rales, wheezing - Cardiovascular Rhythm: regular Heart Sounds: Present: S1 & S2 - Extremities Extremities: no ischemia Extremity abnormal: edema - Abdominal General gastrointestinal: soft, non-tender, non-distended, normal bowel sounds - Integumentary Integumentary: Present: clear, warm - Psychiatric Psychiatric: agitated, other (on vent) - Neurologic Neurologic: moves all extremities, other (intubated on vent) Results - Labs CBC & Chem 7: 09/05/18 04:00 09/05/18 04:00 Labs: Laboratory Last Values WBC 6.3 K/mm3 (4.5-11.0) 09/05/18 04:00 RBC 2.13 M/mm3 (3.65-5.03) L 09/05/18 04:00 Hgb 6.4 gm/dl (10.1-14.3) L 09/05/18 04:00 Hct 20.1 % (30.3-42.9) L 09/05/18 04:00 MCV 95 fl (79-97) 09/05/18 04:00 MCH 30 pg (28-32) 09/05/18 04:00 MCHC 32 % (30-34) 09/05/18 04:00 RDW 19.9 % (13.2-15.2) H 09/05/18 04:00 Plt Count 117 K/mm3 (140-440) L 09/05/18 04:00 Lymph % (Auto) 14.0 % (13.4-35.0) 09/05/18 04:00 Haines % (Auto) 4.2 % (0.0-7.3) 09/05/18 04:00 Eos % (Auto) 0.0 % (0.0-4.3) 09/05/18 04:00 Baso % (Auto) 0.1 % (0.0-1.8) 09/05/18 04:00 Lymph # 0.9 K/mm3 (1.2-5.4) L 09/05/18 04:00 Haines # 0.3 K/mm3 (0.0-0.8) 09/05/18 04:00 Eos # 0.0 K/mm3 (0.0-0.4) 09/05/18 04:00 Baso # 0.0 K/mm3 (0.0-0.1) 09/05/18 04:00 Add Manual Diff Complete 09/03/18 04:25 Total Counted 100 09/03/18 04:25 Seg Neutrophils % 81.7 % (40.0-70.0) H 09/05/18 04:00 Seg Neuts % (Manual) 90.0 % (40.0-70.0) H 09/03/18 04:25 Band Neutrophils % 1.0 % 09/03/18 04:25 Lymphocytes % (Manual) 5.0 % (13.4-35.0) L 09/03/18 04:25 Reactive Lymphs % (Man) 0 % 09/03/18 04:25 Monocytes % (Manual) 3.0 % (0.0-7.3) 09/03/18 04:25 Eosinophils % (Manual) 0 % (0.0-4.3) 09/03/18 04:25 Basophils % (Manual) 0 % (0.0-1.8) 09/03/18 04:25 Metamyelocytes % 0 % 09/03/18 04:25 Myelocytes % 1.0 % 09/03/18 04:25 Promyelocytes % 0 % 09/03/18 04:25 Blast Cells % 0 % 09/03/18 04:25 Nucleated RBC % Not Reportable 09/03/18 04:25 Seg Neutrophils # 5.1 K/mm3 (1.8-7.7) 09/05/18 04:00 Seg Neutrophils # Man 8.7 K/mm3 (1.8-7.7) H 09/03/18 04:25 Band Neutrophils # 0.1 K/mm3 09/03/18 04:25 Abs Lymphs (Manual) 3262 cells/uL (850-3900) 08/19/18 14:32 Lymphocytes # (Manual) 0.5 K/mm3 (1.2-5.4) L 09/03/18 04:25 Abs React Lymphs (Man) 0.0 K/mm3 09/03/18 04:25 Monocytes # (Manual) 0.3 K/mm3 (0.0-0.8) 09/03/18 04:25 Eosinophils # (Manual) 0.0 K/mm3 (0.0-0.4) 09/03/18 04:25 Basophils # (Manual) 0.0 K/mm3 (0.0-0.1) 09/03/18 04:25 Metamyelocytes # 0.0 K/mm3 09/03/18 04:25 Myelocytes # 0.1 K/mm3 09/03/18 04:25 Promyelocytes # 0.0 K/mm3 09/03/18 04:25 Blast Cells # 0.0 K/mm3 09/03/18 04:25 WBC Morphology Not Reportable 09/03/18 04:25 Hypersegmented Neuts Not Reportable 09/03/18 04:25 Hyposegmented Neuts Not Reportable 09/03/18 04:25 Hypogranular Neuts Not Reportable 09/03/18 04:25 Smudge Cells Not Reportable 09/03/18 04:25 Toxic Granulation Not Reportable 09/03/18 04:25 Toxic Vacuolation Not Reportable 09/03/18 04:25 Dohle Bodies Not Reportable 09/03/18 04:25 Pelger-Huet Anomaly Not Reportable 09/03/18 04:25 Rosy Rods Not Reportable 09/03/18 04:25 Platelet Estimate Consistent w auto 09/03/18 04:25 Clumped Platelets Not Reportable 09/03/18 04:25 Plt Clumps, EDTA Not Reportable 09/03/18 04:25 Large Platelets Not Reportable 09/03/18 04:25 Giant Platelets Not Reportable 09/03/18 04:25 Platelet Satelliting Not Reportable 09/03/18 04:25 Plt Morphology Comment Not Reportable 09/03/18 04:25 RBC Morphology Not Reportable 09/03/18 04:25 Dimorphic RBCs Not Reportable 09/03/18 04:25 Polychromasia Not Reportable 09/03/18 04:25 Hypochromasia 1+ 04/06/19 04:25 Poikilocytosis 1+ 09/03/18 04:25 Anisocytosis 1+ 09/03/18 04:25 Microcytosis Not Reportable 09/03/18 04:25 Macrocytosis Not Reportable 09/03/18 04:25 Spherocytes Not Reportable 09/03/18 04:25 Pappenheimer Bodies Not Reportable 09/03/18 04:25 Sickle Cells Not Reportable 09/03/18 04:25 Target Cells Not Reportable 09/03/18 04:25 Tear Drop Cells Not Reportable 09/03/18 04:25 Ovalocytes Not Reportable 09/03/18 04:25 Helmet Cells Not Reportable 09/03/18 04:25 Hernandez-Arjay Bodies Not Reportable 09/03/18 04:25 Nabb Rings Not Reportable 09/03/18 04:25 Bertha Cells Not Reportable 09/03/18 04:25 Bite Cells Not Reportable 09/03/18 04:25 Crenated Cell Not Reportable 09/03/18 04:25 Elliptocytes Not Reportable 09/03/18 04:25 Acanthocytes (Spur) Not Reportable 09/03/18 04:25 Rouleaux Not Reportable 09/03/18 04:25 Hemoglobin C Crystals Not Reportable 09/03/18 04:25 Schistocytes Not Reportable 09/03/18 04:25 Malaria parasites Not Reportable 09/03/18 04:25 Ceasar Bodies Not Reportable 09/03/18 04:25 Hem Pathologist Commnt No 09/03/18 04:25 D-Dimer 2768.33 ng/mlDDU (0-234) H 08/15/18 18:31 Heparin Anti-Xa, Unfract Negative (Negative) 08/22/18 15:29 POC ABG pH 7.282 (7.35-7.45) L 09/05/18 03:46 POC ABG pCO2 57.3 (35-45) H 09/05/18 03:46 POC ABG pO2 124 (80-105) H 09/05/18 03:46 POC ABG HCO3 27.1 (22-26 mml/L) 09/05/18 03:46 POC ABG Total CO2 29 (23-27mmol/L) 09/05/18 03:46 POC ABG O2 Sat 98 09/05/18 03:46 POC ABG Base Excess 0 ((-2) - (+3)mmol/L) 09/05/18 03:46 VBG pH 7.187 (7.320-7.420) L* 08/15/18 18:19 FiO2 100 % 09/05/18 03:46 Sodium 145 mmol/L (137-145) 09/05/18 04:00 Potassium 3.6 mmol/L (3.6-5.0) 09/05/18 04:00 Chloride 111.0 mmol/L (98-107) H 09/05/18 04:00 Carbon Dioxide 26 mmol/L (22-30) 09/05/18 04:00 Anion Gap 12 mmol/L 09/05/18 04:00 BUN 20 mg/dL (7-17) H 09/05/18 04:00 Creatinine 0.7 mg/dL (0.7-1.2) 09/05/18 04:00 Estimated GFR > 60 ml/min 09/05/18 04:00 BUN/Creatinine Ratio 29 % 09/05/18 04:00 Glucose 130 mg/dL (65-100) H 09/05/18 04:00 POC Glucose 129 (70-105) H 09/04/18 18:27 Hemoglobin A1c 6.4 % (4-6) H 08/15/18 23:09 Lactic Acid 1.20 mmol/L (0.7-2.0) 08/22/18 15:29 Calcium 7.8 mg/dL (8.4-10.2) L 09/05/18 04:00 Phosphorus 3.20 mg/dL (2.5-4.5) 09/04/18 06:30 Magnesium 1.60 mg/dL (1.7-2.3) L 09/05/18 04:00 Total Bilirubin 0.40 mg/dL (0.1-1.2) 09/03/18 04:25 AST 33 units/L (5-40) 09/03/18 04:25 ALT 15 units/L (7-56) 09/03/18 04:25 Alkaline Phosphatase 95 units/L (35-129) 09/03/18 04:25 Troponin T 0.317 ng/mL (0.00-0.029) H* D 08/18/18 13:39 C-Reactive Protein 5.00 mg/dL (0.00-1.30) H 08/25/18 05:20 Total Protein 6.0 g/dL (6.3-8.2) L 09/03/18 04:25 Albumin 2.4 g/dL (3.9-5) L 09/03/18 04:25 Albumin/Globulin Ratio 0.7 % 09/03/18 04:25 Triglycerides 197 mg/dL (2-149) H 08/22/18 06:45 Cholesterol 87 mg/dL (50-199) 08/15/18 18:31 LDL Cholesterol Direct 4 mg/dL (50-130) L 08/15/18 18:31 HDL Cholesterol 10 mg/dL (40-59) L 08/15/18 18:31 Cholesterol/HDL Ratio 8.70 % 08/15/18 18:31 Serotonin Release Assay See scanned results 08/22/18 15:29 Total Cortisol 21.4 mcg/dL () 08/25/18 08:52 Urine Color Rosemarie (Yellow) 08/15/18 19:15 Urine Turbidity Cloudy (Clear) 08/15/18 19:15 Urine pH 5.0 (5.0-7.0) 08/15/18 19:15 Ur Specific [place] 1.025 (1.003-1.030) 08/15/18 19:15 Urine Protein 30 mg/dl mg/dL (Negative) 08/15/18 19:15 Urine Glucose (UA) Neg mg/dL (Negative) 08/15/18 19:15 Urine Ketones Neg mg/dL (Negative) 08/15/18 19:15 Urine Blood Mod (Negative) 08/15/18 19:15 Urine Nitrite Neg (Negative) 08/15/18 19:15 Urine Bilirubin Neg (Negative) 08/15/18 19:15 Urine Urobilinogen 2.0 mg/dL (<2.0) 08/15/18 19:15 Ur Leukocyte Esterase Mod (Negative) 08/15/18 19:15 Urine WBC (Auto) 17.0 /HPF (0.0-6.0) H 08/15/18 19:15 Urine RBC (Auto) 5.0 /HPF (0.0-6.0) 08/15/18 19:15 Urine WBC Clumps 2+ /HPF 08/15/18 19:15 Amorphous Crystals 1+ 08/15/18 19:15 Hyaline Casts 54 /LPF 08/15/18 19:15 Granular Casts 14 /LPF 08/15/18 19:15 Urine Mucus Few /HPF 08/15/18 19:15 Vancomycin Trough 17.4 ug/mL (5.0-20.0) 09/04/18 15:42 Salicylates < 0.3 mg/dL (2.8-20.0) L 08/15/18 19:14 Urine Opiates Screen Presumptive positive 08/15/18 19:15 Urine Methadone Screen Presumptive negative 08/15/18 19:15 Acetaminophen < 5.0 ug/mL (10.0-30.0) L 08/15/18 19:14 Ur Barbiturates Screen Presumptive negative 08/15/18 19:15 Ur Phencyclidine Scrn Presumptive negative 08/15/18 19:15 Ur Amphetamines Screen Presumptive negative 08/15/18 19:15 U Benzodiazepines Scrn Presumptive negative 08/15/18 19:15 Urine Cocaine Screen Presumptive negative 08/15/18 19:15 U Marijuana (THC) Screen Presumptive negative 08/15/18 19:15 Drugs of Abuse Note Disclamer 08/15/18 19:15 Heparin-induced Plt Ab Negative (Negative) 08/22/18 15:29 UF Heparin High Dose 0 % Release 08/22/18 15:29 NAZIA UFH Low Dose 0.1 0 % Release 08/22/18 15:29 NAZIA UFH Low Dose 0.5 0 % Release 08/22/18 15:29 Lymph Enumerat CD4/CD8 1.98 (0.86-5.00) 08/19/18 14:32 % CD3 Cells 44 % (57-85) L 08/19/18 14:32 Absolute CD3 Count 1451 cells/uL (840-3060) 08/19/18 14:32 % CD4 Cells 30 % (30-61) 08/19/18 14:32 Absolute CD4 Count 1004 cells/uL (490-1740) 08/19/18 14:32 % CD8 Cells 15 % (12-42) 08/19/18 14:32 Absolute CD8 Count 508 cells/uL (180-1170) 08/19/18 14:32 % CD19 Cells 41 % (6-29) H 08/19/18 14:32 Absolute CD19 Count 1290 cells/uL (110-660) H 08/19/18 14:32 C. difficile Toxin A&B Negative (Negative) 08/19/18 14:00 HIV 1&2 Antibody Rapid Non react (Non React) 08/18/18 13:39 HIV P24 Antigen Non react (Non React) 08/18/18 13:39 Miscellaneous Test Flexitest 1 08/30/18 10:00 Blood Type O POSITIVE 09/03/18 10:24 Antibody Screen Negative 09/03/18 10:24 Crossmatch See Detail 09/03/18 10:24 Active Medications - Current Medications Current Medications: Generic Name Dose Route Start Last Admin Trade Name Freq PRN Reason Stop Dose Admin Acetaminophen 650 mg 08/15/18 22:12 09/04/18 09:34 Tylenol PO 650 mg Q4H PRN Administration Pain MILD(1-3)/Fever >100.5/MONDRAGON Albuterol 2.5 mg 08/17/18 17:00 Proventil IH Q3HRT PRN Shortness Of Breath Albuterol/Ipratropium 1 ampul 08/20/18 14:00 09/05/18 08:15 Duoneb *Not For Prn Use* IH Not Given Q6HRT LAMAR Lipase/Protease/Amylase 1 each 09/02/18 10:40 Pancresam Elizabeth 10,500 Unit FEEDTUBE PRN PRN For Clogged Feeding Tube Arformoterol Tartrate 15 mcg 08/18/18 20:00 09/05/18 08:14 Brovana Nebu IH 15 mcg Q12HRT LAMAR Administration Budesonide 0.5 mg 08/18/18 20:00 09/05/18 08:14 Pulmicort IH 0.5 mg Q12HRT LAMAR Administration Carvedilol 3.125 mg 08/26/18 15:19 09/04/18 21:49 Coreg PO 3.125 mg BID LAMAR Administration Duloxetine HCl 60 mg 08/16/18 10:00 08/30/18 14:35 Cymbalta PO Not Given QDAY LAMAR Enoxaparin Sodium 100 mg 09/01/18 22:00 09/04/18 21:47 Lovenox 1 mg/kg (100 mg) 100 mg SUB-Q Administration Q12HR [facility] Famotidine 20 mg 09/05/18 10:00 Pepcid PO BID [facility] Fentanyl 50 mcg 09/02/18 10:17 Sublimaze IV Q10MIN PRN ANALGESIA Hydralazine HCl 10 mg 08/19/18 13:59 08/29/18 14:22 Apresoline IV 10 mg Q3H PRN Administration Hydralazine HCl 25 mg 09/01/18 14:00 09/05/18 06:29 Apresoline PO 25 mg Q8HR LAMAR Administration Hydrophilic Ointment 1 applic 08/15/18 21:55 09/01/18 09:07 Vaseline Lip Therapy TP 1 applic Q2HR PRN Administration Dry Lips Fentanyl Citrate 2,000 mcg in 100 mls @ 4.765 mls/hr 09/02/18 11:00 09/05/18 06:38 Fentanyl Drip Premix IV 4 mcg/kg/hr TITR LAMAR 19.06 mls/hr Administration Protocol 1 MCG/KG/HR Micafungin Sodium 100 mg/ 100 mls @ 100 mls/hr 09/02/18 15:00 09/04/18 09:29 Sodium Chloride IV 100 mls/hr QDAY LAMAR Administration Protocol Vancomycin HCl 1,500 mg/ 530 mls @ 333.333 mls/hr 09/03/18 04:00 09/05/18 06:28 Sodium Chloride IV 333.333 mls/hr Q12H LAMAR Administration Potassium Chloride 20 meq/ 1,019.625 mls @ 75 mls/hr 09/04/18 02:00 09/05/18 01:20 Sodium Chloride 38.5 meq/ IV 75 mls/hr Dextrose DIRECT LAMAR Administration Meropenem 1,000 mg/ Sodium 100 mls @ 100 mls/hr 09/04/18 18:00 09/05/18 02:34 Chloride IV 100 mls/hr Q8H [facility] Administration Protocol Insulin Human Lispro 0 unit 09/04/18 18:00 09/05/18 06:29 Humalog SUB-Q Not Given Q6HR [facility] Protocol Metoclopramide HCl 5 mg 08/15/18 22:50 Reglan IV Q6H PRN Nausea And Vomiting Morphine Sulfate 1 mg 08/29/18 15:29 09/05/18 09:26 Morphine IV 1 mg Q4H PRN Administration Pain, Moderate (4-6) Ondansetron HCl 4 mg 08/15/18 22:12 08/31/18 17:52 Zofran IV 4 mg Q8H PRN Administration Nausea And Vomiting Quetiapine Fumarate 200 mg 09/04/18 15:00 09/04/18 21:50 Seroquel PO 200 mg BID LAMAR Administration Simple Syrup 15 ml 09/02/18 11:24 Simple Syrup FEEDTUBE PRN PRN Hypoglycemia Simple Syrup 30 ml 09/02/18 11:24 Simple Syrup FEEDTUBE PRN PRN Hypoglycemia Sodium Bicarbonate 325 mg 09/02/18 10:40 Sodium Bicarbonate FEEDTUBE PRN PRN For Clogged Feeding Tube Sodium Chloride 10 ml 08/15/18 22:12 09/04/18 09:35 Sodium Chloride Flush Syringe 10 Ml IV 10 ml PRN PRN Administration LINE FLUSH Nutrition/Malnutrition Assess - Dietary Evaluation Nutrition/Malnutrition Findings: Nutrition Notes Start: 08/17/18 13:57 Freq: Status: Active Protocol: Document 09/04/18 12:05 MADAY (Rec: 09/04/18 12:10 MADAY [email or web address]) Nutrition Notes Initial or Follow up Reassessment Current Diagnosis Acute Kidney Injury,COPD, Diabetes,Sepsis,Hypertension, Respiratory Failure, Hyperlipidemia Other Pertinent Diagnosis AMS, hypokalemia, NSTEMI, encephalopathy, pneu, hypernatermia, shock liver Current Diet TF - Vital High Protein at 55ml/hr Labs/Tests Na 150 Mg 1.5 Pertinent Medications 20mEq KCl in D5W at 75ml/hr, Propofol at 2.859ml/hr ( provides 75 kcal) Height 5 ft 7 in Weight 95.3 kg [place] Body Weight (kg) 61.36 BMI 32.9 Subjective/Other Information TF infusing at 50ml/hr and pt tolerating per RN report. TF rate to be increased to goal. Pt remains on vent support and receives 300ml water flush q4h. Percent of energy/protein needs met: 66% energy 85% pro #1 Nutrition Diagnosis Inadequate oral intake Diagnosis Progress(for reassessment Continues documentation) Is patient on ventilator? Yes Is Patient Ambulatory and/or Out of Bed No REE-([facility]-confined to bed) 8299.132 Calculation Used for Recommendations 65-70% energy needs Additional Notes Pro needs 2g/kg IBW: 123g/day Fluid needs 1ml/kcal Nutrition Intervention Nutrition Support: Vital High Protein at 55ml/hr. Provide 100ml water flush q4h until hypernatremia resolved. Kcal 1,320 Protein (gm) 116 Fluid (mL) 1,103 Goal #1 TF tolerance Goal #2 TF to meet 65-70% energy and 80-100% pro needs Follow-Up By: 09/06/18 Additional Comments F/U: stable TF, TF goal rate, wt, vent status
[2018-09-05] MEDS: LOVENOX SUB-Q SCH ×2 (10:04→21:18)
[2018-09-05] MEDS: PEPCID PO SCH ×2 (10:05→21:20)
[2018-09-05] MEDS: COREG PO SCH ×2 (10:05→21:20)
[2018-09-05] MEDS: SUBLIMAZE IV PRN (10:32)
--- NOTE | 2018-09-05 10:57 | Progress Note ---
Assessment and Plan Cultures: 08/15/2018 blood culture: Camryn glabrata 1 of 4 08/15/2018 sputum culture: MSSA and Escherichia coli, wade susceptible 08/18/2018 blood culture: no growth 08/18/2018 urine culture: neg 08/22/2018 blood culture: no growth 08/25/2018 blood culture: no growth 09/02/2018 BAL cultures: in process. No growth thus far. 09/04/2018 blood culture: no growth thus far 09/04/2018 trach aspirate: in process A/P: 68-year-old female with COPD, arthritis, history of multiple spinal surgeries was brought to the emergency room on 08/15/2018 with altered mental status: 1) Sepsis with septic shock: resolved. 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 Patient without any history of indwelling PICC line, TPN or immunocompromised status. reported severe explosive diarrhea, N/V before admission after taken 4 days of amoxicillin for dental implant on 07/29/2018 and had a EGD / colonoscopy on 08/08/[address] [place] [address] Alcantara. I reviewed report - mild chronic gastritis, focal intestinal metaplasia, squamocolumnar mucosa with mild reflux-type cooney es, and tubular adenoma. -s/p fluconazole 800 mg loading dose then micafungin, s/p amphotericin D6 on 08/26 -serum Crypto negative. -08/15/2018 blood culture: Camryn glabrata -08/18/2018 blood culture: no growth today -CTA chest showed limited study due to respiratory motion artifact. No evide nce of pulmonary embolism. Abnormal bilateral lung consolidation which may represent pulmonary edema or pneumonia. Mild cardiomegaly. Indeterminant mediastinal lymph nodes. -CT abdomen showed extensive bilateral lower lobe pulmonary infiltrates, rectal tube and Dodge catheter noted. NG tube at gastric antrum. Left hip prosthesis Extensive degenerative changes noted lumbar spine -TTE EF 25-30% no vegetations -HIV neg/ CD4 1004 -reviewed CT chest abd done 01/05/2019 showed cholecystectomy, mild fatty liver, postoperative changes of lumbar laminectomy with non specific fluid, 9 mm LLL pulmonary nodule which was compared to previous CT and was stable. -CRP 10-->5 3) Acute renal failure: On admission: Nephrology following. 4) Acute respiratory failure: Back on the vent. Recently completed pneumonia treatment. WBC up and low grade fever. Underwent bronch + BAL on 09/02/2018. follow up cultures. On abx. 5) Right maxillary sinusitis: received empiric abx. 6) Acute encephalopathy: Likely multifactorial. CT head unremarkable for acute intracranial process. Improving. 7) Cardiomyopathy, LVEF 25-30% this admission. 8) H/O left hip prosthesis ? XR no effusion. CT no enhancement 9) Left leg DVT: on anticoagulation. Recs: follow up BAL, resp, blood cultures continue IV Meropenem D2 continue IV Vancomycin continue IV Micafungin Brando Pradhan MD [facility] C: [phone] O: [phone] F: [phone] Subjective Date of service: 09/05/18 Principal diagnosis: Acute hypoxemic hypercapnic Resp failure; AE-COPD; Acute kidney injury Interval history: Fever is improved. Remains on the vent. at bedside. Objective - Exam Narrative Exam: Physical Exam: Constitutional: sedated, intubated Head, Ears, Nose: Normocephalic, atraumatic. External ears, nose normal Eyes: Conjunctivae/corneas clear. No icterus. No ptosis. Neck: Supple, no meningeal signs Oral: intubated Cardiovascular: S1, S2 normal. Respiratory: coarse breath sounds b/l, equal bilaterally GI: Soft, bowel sounds normal. No peritoneal signs. Musculoskeletal: Left leg edema. Skin: No rash or abscess Hem/Lymphatic: No palpable cervical or supraclavicular nodes. No lymphangitis Psych: no agitation Neurological: sedated, intubated - Constitutional Vitals: Vital Signs Temp Pulse Resp BP Pulse Ox 98.8 F 106 H 39 H 133/63 100 09/05/18 04:00 09/05/18 10:05 09/05/18 09:26 09/05/18 10:05 09/05/18 08:29 Temperature -Last 24 Hours Temperature 98.8 F Temperature 98.8 F Temperature 98.8 F Temperature 99.9 F Temperature 99.9 F Temperature 99.3 F Temperature 99.3 F - Labs CBC & Chem 7: 09/05/18 04:00 09/05/18 04:00 Labs: Abnormal lab results 09/03/18 09/04/18 09/04/18 Range/Units 10:24 11:20 11:51 RBC (3.65-5.03) M/mm3 Hgb (10.1-14.3) gm/dl Hct (30.3-42.9) % RDW (13.2-15.2) % Plt Count (140-440) K/mm3 Lymph # (1.2-5.4) K/mm3 Seg Neutrophils % (40.0-70.0) % POC ABG pH 7.244 L (7.35-7.45) POC ABG pCO2 54.2 H (35-45) POC ABG pO2 62 L (80-105) Chloride (98-107) mmol/L BUN (7-17) mg/dL Glucose (65-100) mg/dL POC Glucose 156 H (70-105) Calcium (8.4-10.2) mg/dL Magnesium (1.7-2.3) mg/dL Crossmatch See Detail 09/04/18 09/05/18 09/05/18 Range/Units 18:27 03:46 04:00 RBC 2.13 L (3.65-5.03) M/mm3 Hgb 6.4 L (10.1-14.3) gm/dl Hct 20.1 L (30.3-42.9) % RDW 19.9 H (13.2-15.2) % Plt Count 117 L (140-440) K/mm3 Lymph # 0.9 L (1.2-5.4) K/mm3 Seg Neutrophils % 81.7 H (40.0-70.0) % POC ABG pH 7.282 L (7.35-7.45) POC ABG pCO2 57.3 H (35-45) POC ABG pO2 124 H (80-105) Chloride (98-107) mmol/L BUN (7-17) mg/dL Glucose (65-100) mg/dL POC Glucose 129 H (70-105) Calcium (8.4-10.2) mg/dL Magnesium (1.7-2.3) mg/dL Crossmatch 09/05/18 Range/Units 04:00 RBC (3.65-5.03) M/mm3 Hgb (10.1-14.3) gm/dl Hct (30.3-42.9) % RDW (13.2-15.2) % Plt Count (140-440) K/mm3 Lymph # (1.2-5.4) K/mm3 Seg Neutrophils % (40.0-70.0) % POC ABG pH (7.35-7.45) POC ABG pCO2 (35-45) POC ABG pO2 (80-105) Chloride 111.0 H (98-107) mmol/L BUN 20 H (7-17) mg/dL Glucose 130 H (65-100) mg/dL POC Glucose (70-105) Calcium 7.8 L (8.4-10.2) mg/dL Magnesium 1.60 L (1.7-2.3) mg/dL Crossmatch
[2018-09-05] MEDS: TYLENOL PO PRN (11:33)
--- NOTE | 2018-09-05 11:35 | Progress Note ---
Assessment and Plan Acute hypoxic-hypercapnic respiratory failure on MVS Acute COPD exacerbation DVT NSTEMI Acute encephalopathy (toxic-metabolic) Thrombocytopenia Hypokalemia Acute kidney injury h/o Chronic Narcotic Dependence Aspiration pneumonia/CAP Hypokalemia GNR in tracheal aspirate Hypernatremia (discussed utility of early tracheostomy with her ) - Vascular / IR consult to evaluate for VTE and see if other alternative to CTA of chest as unstable now and re: risk of nephropathy - gen surgery consult to discuss tracheostomy with - 1 unit PRBC transfusion ordered - repeat BMP in am - schedule baseline MS contin regimen she was taking at home - increase peep to 14 cm H2O ([place] Pressures < 30) - anti-infective's adjusted by ID team - continue accuchecks q6h and target glycemic control for BG 140 - 180 mg/dl acutely - azotemia improving (appreciate nephrology input) - increased seroquel to 200 mg bid - CD4 count WNL - stopped lovenox and sent HIT assay re: acute thrombocytopenia (pending) - continue amphotericin for fungemia - nephrology input appreciated - cardiology consulted for CHF - continue brovana & pulmicort re: COPD - Continue to Wean supplemental oxygen to keep O2 sats 88-90% (restrictive Oxygen strategies acutely) - continue lung protective strategies - Daily ABGs/CXR for now - VAP bundle addressed - continue to avoid benzodiazepines, use high dose fentanyl for agitation and analgesia - Sedation target for RASS 0 to -1 - Stress ulcer prophylaxis - VTE prophylaxis - enteral Nutrition as tolerated - VAP bundle addressed - Free water flushes for hypernatremia - Continue bronchodilators with pulmonary hygiene per RT - Maintenance of sleep -wake cycle - Mobility protocol for pressure ulcer prophylaxis as tolerated by hemodynamics - Influenza and pneumonia vaccination per protocol ..care plan discussed at length with family at the bedside ... re-evaluate in am & prn PROGNOSIS :FAIR CONDITION: CRITICAL CODE STATUS: FULL CODE The high probability of a clinically significant, sudden or life-threatening deterioration of the [respiratory, neurology, renal] system(s) required my full and direct attention, intervention and personal management. The aggregate critical care time was [40] minutes without overlap. Time includes spent on; [x] Data Review and interpretation [x] Patient assessment and monitoring of vital signs [x] Documentation [x] Medication orders and management Subjective Date of service: 09/05/18 Principal diagnosis: Acute hypoxemic hypercapnic Resp failure; AE-COPD; Acute kidney injury Interval history: Patient is seen today for: Acute hypoxemic - hypercapnic respiratory failure on MVS; Acute COPD exacerbation; Acute encephalopathy (toxic-metabolic); Hypokalem ia; Acute kidney injury Seen and examined at bedside; 24hour events reviewed; nursing and respiratory care staff consulted; no adverse overnight events reported to me; resting in bed; on fentanyl drip and at RASS -1; decompensated and re-intubated after aspiration event; also now with DVT +/- P.E.; in room Objective Vital Signs - 12hr 09/04/18 09/04/18 09/04/18 23:44 23:45 23:48 Temperature Pulse Rate 83 80 80 Pulse Rate [ Anterior Bilateral Throughout] Pulse Rate [ Apical] Respiratory 15 13 11 L Rate Respiratory Rate [Anterior Bilateral Throughout] Blood Pressure 116/50 113/46 113/46 O2 Sat by Pulse 100 100 100 Oximetry 09/05/18 09/05/18 09/05/18 00:00 00:15 00:30 Temperature 98.8 F Pulse Rate 81 82 84 Pulse Rate [ Anterior Bilateral Throughout] Pulse Rate [ 99 H Apical] Respiratory 10 L 24 11 L Rate Respiratory Rate [Anterior Bilateral Throughout] Blood Pressure 113/46 109/49 98/42 O2 Sat by Pulse 100 100 100 Oximetry 09/05/18 09/05/18 09/05/18 00:45 01:00 01:15 Temperature Pulse Rate 84 83 82 Pulse Rate [ Anterior Bilateral Throughout] Pulse Rate [ Apical] Respiratory 13 18 18 Rate Respiratory Rate [Anterior Bilateral Throughout] Blood Pressure 108/54 108/54 100/52 O2 Sat by Pulse 100 99 100 Oximetry 09/05/18 09/05/18 09/05/18 01:30 01:45 02:00 Temperature Pulse Rate 82 81 83 Pulse Rate [ Anterior Bilateral Throughout] Pulse Rate [ Apical] Respiratory 15 15 13 Rate Respiratory Rate [Anterior Bilateral Throughout] Blood Pressure 97/42 108/48 106/49 O2 Sat by Pulse 99 100 98 Oximetry 09/05/18 09/05/18 09/05/18 02:08 02:15 02:23 Temperature Pulse Rate 81 Pulse Rate [ 83 85 Anterior Bilateral Throughout] Pulse Rate [ Apical] Respiratory 18 Rate Respiratory 31 H 31 H Rate [Anterior Bilateral Throughout] Blood Pressure 102/46 O2 Sat by Pulse 100 Oximetry 09/05/18 09/05/18 09/05/18 02:30 02:45 03:00 Temperature Pulse Rate 82 81 81 Pulse Rate [ Anterior Bilateral Throughout] Pulse Rate [ Apical] Respiratory 16 16 25 H Rate Respiratory Rate [Anterior Bilateral Throughout] Blood Pressure 99/47 108/46 107/45 O2 Sat by Pulse 100 100 100 Oximetry 09/05/18 09/05/18 09/05/18 03:15 03:30 03:35 Temperature Pulse Rate 81 80 81 Pulse Rate [ Anterior Bilateral Throughout] Pulse Rate [ Apical] Respiratory 21 16 Rate Respiratory Rate [Anterior Bilateral Throughout] Blood Pressure 103/48 109/46 109/46 O2 Sat by Pulse 100 100 98 Oximetry 09/05/18 09/05/18 09/05/18 03:45 04:00 04:15 Temperature 98.8 F Pulse Rate 80 81 81 Pulse Rate [ Anterior Bilateral Throughout] Pulse Rate [ 98 H Apical] Respiratory 10 L 18 12 Rate Respiratory Rate [Anterior Bilateral Throughout] Blood Pressure 101/45 106/48 101/45 O2 Sat by Pulse 99 99 98 Oximetry 09/05/18 09/05/18 09/05/18 04:30 04:46 05:00 Temperature Pulse Rate 90 88 88 Pulse Rate [ Anterior Bilateral Throughout] Pulse Rate [ Apical] Respiratory 21 17 17 Rate Respiratory Rate [Anterior Bilateral Throughout] Blood Pressure 120/48 117/45 108/54 O2 Sat by Pulse 98 100 100 Oximetry 09/05/18 09/05/18 09/05/18 05:16 05:30 05:45 Temperature Pulse Rate 86 84 80 Pulse Rate [ Anterior Bilateral Throughout] Pulse Rate [ Apical] Respiratory 12 13 10 L Rate Respiratory Rate [Anterior Bilateral Throughout] Blood Pressure 108/52 117/51 112/53 O2 Sat by Pulse 100 100 100 Oximetry 09/05/18 09/05/18 09/05/18 06:00 06:15 06:29 Temperature Pulse Rate 81 86 97 H Pulse Rate [ Anterior Bilateral Throughout] Pulse Rate [ Apical] Respiratory 11 L 9 L Rate Respiratory Rate [Anterior Bilateral Throughout] Blood Pressure 112/53 108/51 108/51 O2 Sat by Pulse 100 100 Oximetry 09/05/18 09/05/18 09/05/18 06:30 06:45 07:00 Temperature Pulse Rate 89 87 88 Pulse Rate [ Anterior Bilateral Throughout] Pulse Rate [ Apical] Respiratory 14 16 11 L Rate Respiratory Rate [Anterior Bilateral Throughout] Blood Pressure 117/58 112/53 117/52 O2 Sat by Pulse 100 100 100 Oximetry 09/05/18 09/05/18 09/05/18 07:15 07:30 07:45 Temperature Pulse Rate 89 87 89 Pulse Rate [ Anterior Bilateral Throughout] Pulse Rate [ Apical] Respiratory 12 12 12 Rate Respiratory Rate [Anterior Bilateral Throughout] Blood Pressure 121/48 116/54 128/62 O2 Sat by Pulse 100 100 99 Oximetry 09/05/18 09/05/18 09/05/18 08:00 08:11 08:15 Temperature 99.4 F Pulse Rate 86 94 H 89 Pulse Rate [ 89 Anterior Bilateral Throughout] Pulse Rate [ Apical] Respiratory 14 12 Rate Respiratory 34 H Rate [Anterior Bilateral Throughout] Blood Pressure 117/50 117/50 116/52 O2 Sat by Pulse 100 100 100 Oximetry 09/05/18 09/05/18 09/05/18 08:27 08:29 08:30 Temperature Pulse Rate 91 H 88 Pulse Rate [ 84 Anterior Bilateral Throughout] Pulse Rate [ Apical] Respiratory 10 L Rate Respiratory 30 H Rate [Anterior Bilateral Throughout] Blood Pressure 116/52 111/48 O2 Sat by Pulse 100 100 Oximetry 09/05/18 09/05/18 09/05/18 08:45 09:00 09:16 Temperature Pulse Rate 93 H 104 H 107 H Pulse Rate [ Anterior Bilateral Throughout] Pulse Rate [ Apical] Respiratory 12 23 23 Rate Respiratory Rate [Anterior Bilateral Throughout] Blood Pressure 101/46 101/46 117/66 O2 Sat by Pulse 99 94 92 Oximetry 09/05/18 09/05/18 09/05/18 09:26 09:30 09:45 Temperature Pulse Rate 105 H 102 H Pulse Rate [ Anterior Bilateral Throughout] Pulse Rate [ Apical] Respiratory 39 H 27 H 25 H Rate Respiratory Rate [Anterior Bilateral Throughout] Blood Pressure 120/71 127/63 O2 Sat by Pulse 89 92 Oximetry 09/05/18 09/05/18 09/05/18 10:00 10:05 10:15 Temperature Pulse Rate 103 H 106 H 105 H Pulse Rate [ Anterior Bilateral Throughout] Pulse Rate [ Apical] Respiratory 22 25 H Rate Respiratory Rate [Anterior Bilateral Throughout] Blood Pressure 133/63 133/63 123/63 O2 Sat by Pulse 95 94 Oximetry 09/05/18 09/05/18 09/05/18 10:30 10:46 11:00 Temperature Pulse Rate 119 H 101 H 100 H Pulse Rate [ Anterior Bilateral Throughout] Pulse Rate [ Apical] Respiratory 38 H 19 19 Rate Respiratory Rate [Anterior Bilateral Throughout] Blood Pressure 108/53 94/39 97/41 O2 Sat by Pulse 82 L 96 99 Oximetry 09/05/18 09/05/18 11:15 11:27 Temperature Pulse Rate 94 H 95 H Pulse Rate [ Anterior Bilateral Throughout] Pulse Rate [ Apical] Respiratory 21 Rate Respiratory Rate [Anterior Bilateral Throughout] Blood Pressure 96/47 96/47 O2 Sat by Pulse 97 98 Oximetry Constitutional: appears uncomfortable, other (elderly looking CF, normocephalic and atraumatic with increased resp effort on MVS) Eyes: non-icteric ENT: oropharynx moist, other (ETT 23 cm MARTHA) Neck: supple, no lymphadenopathy, no JVD, other (no thyromegaly) Effort: mildly labored Ascultation: Bilateral: diminished breath sounds, rales Percussion: Bilateral: not dull Cardiovascular: irregular rhythm, PVC's noted Gastrointestinal: normoactive bowel sounds, soft, non-tender, non-distended Integumentary: normal Extremities: no cyanosis, pink and warm, pulses normal, no ischemia or petechiae, edema (Left lower extremity) Neurologic: non-focal exam (grossly), pupils equal and round, CN II-XII normal, motor strength normal and Psychiatric: other (unable to assess) CBC and BMP: 09/06/18 04:20 09/06/18 04:20 ABG, PT/INR, D-dimer: ABG POC ABG pH 7.282 (7.35-7.45) L 09/05/18 03:46 POC ABG pCO2 57.3 (35-45) H 09/05/18 03:46 POC ABG pO2 124 (80-105) H 09/05/18 03:46 POC ABG HCO3 27.1 (22-26 mml/L) 09/05/18 03:46 POC ABG Total CO2 29 (23-27mmol/L) 09/05/18 03:46 POC ABG O2 Sat 98 09/05/18 03:46 PT/INR, D-dimer D-Dimer 2768.33 ng/mlDDU (0-234) H 08/15/18 18:31 Abnormal lab findings: Abnormal Labs 08/15/18 08/15/18 08/15/18 17:52 17:52 17:52 WBC 12.7 H RBC 3.25 L Hgb Hct RDW Plt Count Lymph % (Auto) [place] % (Auto) Lymph # [place] # Seg Neutrophils % Seg Neuts % (Manual) Lymphocytes % (Manual) 6.0 L Nucleated RBC % Seg Neutrophils # Seg Neutrophils # Man Lymphocytes # (Manual) 0.8 L D-Dimer POC ABG pH POC ABG pCO2 POC ABG pO2 VBG pH Sodium Potassium 3.4 L Chloride 94.6 L Carbon Dioxide 17 L BUN 67 H Creatinine 3.5 H Glucose 131 H POC Glucose Hemoglobin A1c Lactic Acid 5.20 H* Calcium 7.6 L Phosphorus Magnesium AST 887 H ALT 316 H Troponin T C-Reactive Protein Total Protein Albumin 3.1 L Triglycerides LDL Cholesterol Direct HDL Cholesterol Urine WBC (Auto) Salicylates Acetaminophen % CD3 Cells % CD19 Cells Absolute CD19 Count Miscellaneous Test Crossmatch 08/15/18 08/15/18 08/15/18 18:11 18:19 18:31 WBC RBC Hgb Hct RDW Plt Count Lymph % (Auto) [place] % (Auto) Lymph # [place] # Seg Neutrophils % Seg Neuts % (Manual) Lymphocytes % (Manual) Nucleated RBC % Seg Neutrophils # Seg Neutrophils # Man Lymphocytes # (Manual) D-Dimer 2768.33 H POC ABG pH 7.173 L POC ABG pCO2 47.8 H POC ABG pO2 177 H VBG pH 7.187 L* Sodium Potassium Chloride Carbon Dioxide BUN Creatinine Glucose POC Glucose Hemoglobin A1c Lactic Acid Calcium Phosphorus Magnesium AST ALT Troponin T C-Reactive Protein Total Protein Albumin Triglycerides LDL Cholesterol Direct HDL Cholesterol Urine WBC (Auto) Salicylates Acetaminophen % CD3 Cells % CD19 Cells Absolute CD19 Count Miscellaneous Test Crossmatch 08/15/18 08/15/18 08/15/18 18:31 19:14 19:14 WBC RBC Hgb Hct RDW Plt Count Lymph % (Auto) [place] % (Auto) Lymph # [place] # Seg Neutrophils % Seg Neuts % (Manual) Lymphocytes % (Manual) Nucleated RBC % Seg Neutrophils # Seg Neutrophils # Man Lymphocytes # (Manual) D-Dimer POC ABG pH POC ABG pCO2 POC ABG pO2 VBG pH Sodium Potassium Chloride Carbon Dioxide BUN Creatinine Glucose POC Glucose Hemoglobin A1c Lactic Acid 2.70 H* Calcium Phosphorus Magnesium AST ALT Troponin T 0.454 H* C-Reactive Protein Total Protein Albumin Triglycerides 356 H LDL Cholesterol Direct 4 L HDL Cholesterol 10 L Urine WBC (Auto) Salicylates < 0.3 L Acetaminophen % CD3 Cells % CD19 Cells Absolute CD19 Count Miscellaneous Test Crossmatch 08/15/18 08/15/18 08/15/18 19:14 19:15 23:09 WBC RBC Hgb Hct RDW Plt Count Lymph % (Auto) [place] % (Auto) Lymph # [place] # Seg Neutrophils % Seg Neuts % (Manual) Lymphocytes % (Manual) Nucleated RBC % Seg Neutrophils # Seg Neutrophils # Man Lymphocytes # (Manual) D-Dimer POC ABG pH POC ABG pCO2 POC ABG pO2 VBG pH Sodium Potassium Chloride Carbon Dioxide BUN Creatinine Glucose POC Glucose Hemoglobin A1c Lactic Acid 3.20 H* Calcium Phosphorus Magnesium AST ALT Troponin T C-Reactive Protein Total Protein Albumin Triglycerides LDL Cholesterol Direct HDL Cholesterol Urine WBC (Auto) 17.0 H Salicylates Acetaminophen < 5.0 L % CD3 Cells % CD19 Cells Absolute CD19 Count Miscellaneous Test Crossmatch 08/15/18 08/16/18 08/16/18 23:09 01:41 05:38 WBC RBC 3.07 L Hgb 9.8 L Hct 28.7 L RDW Plt Count Lymph % (Auto) [place] % (Auto) Lymph # [place] # Seg Neutrophils % Seg Neuts % (Manual) 84.0 H Lymphocytes % (Manual) 6.0 L Nucleated RBC % 4.0 H Seg Neutrophils # Seg Neutrophils # Man Lymphocytes # (Manual) 0.5 L D-Dimer POC ABG pH 7.323 L POC ABG pCO2 34.7 L POC ABG pO2 78 L VBG pH Sodium Potassium Chloride Carbon Dioxide BUN Creatinine Glucose POC Glucose Hemoglobin A1c 6.4 H Lactic Acid Calcium Phosphorus Magnesium AST ALT Troponin T C-Reactive Protein Total Protein Albumin Triglycerides LDL Cholesterol Direct HDL Cholesterol Urine WBC (Auto) Salicylates Acetaminophen % CD3 Cells % CD19 Cells Absolute CD19 Count Miscellaneous Test Crossmatch 08/16/18 08/16/18 08/17/18 05:38 22:43 03:42 WBC RBC Hgb Hct RDW Plt Count Lymph % (Auto) [place] % (Auto) Lymph # [place] # Seg Neutrophils % Seg Neuts % (Manual) Lymphocytes % (Manual) Nucleated RBC % Seg Neutrophils # Seg Neutrophils # Man Lymphocytes # (Manual) D-Dimer POC ABG pH POC ABG pCO2 POC ABG pO2 VBG pH Sodium Potassium 2.9 L* 3.1 L 2.9 L* Chloride 108.8 H 111.9 H Carbon Dioxide 17 L 19 L 21 L BUN 62 H 40 H 33 H Creatinine 2.0 H Glucose 139 H 145 H POC Glucose Hemoglobin A1c Lactic Acid Calcium 7.8 L 8.3 L Phosphorus 1.50 L Magnesium AST 619 H ALT 353 H Troponin T C-Reactive Protein Total Protein 6.1 L Albumin 2.8 L Triglycerides LDL Cholesterol Direct HDL Cholesterol Urine WBC (Auto) Salicylates Acetaminophen % CD3 Cells % CD19 Cells Absolute CD19 Count Miscellaneous Test Crossmatch 08/17/18 08/17/18 08/18/18 11:02 16:42 03:28 WBC RBC Hgb Hct RDW Plt Count Lymph % (Auto) [place] % (Auto) Lymph # [place] # Seg Neutrophils % Seg Neuts % (Manual) Lymphocytes % (Manual) Nucleated RBC % Seg Neutrophils # Seg Neutrophils # Man Lymphocytes # (Manual) D-Dimer POC ABG pH 7.483 H 7.499 H POC ABG pCO2 POC ABG pO2 VBG pH Sodium 147 H Potassium 3.2 L Chloride 115.8 H Carbon Dioxide BUN 23 H Creatinine Glucose 121 H POC Glucose Hemoglobin A1c Lactic Acid Calcium 8.1 L Phosphorus 2.30 L D Magnesium AST ALT Troponin T C-Reactive Protein Total Protein Albumin Triglycerides LDL Cholesterol Direct HDL Cholesterol Urine WBC (Auto) Salicylates Acetaminophen % CD3 Cells % CD19 Cells Absolute CD19 Count Miscellaneous Test Crossmatch 08/18/18 08/18/18 08/18/18 04:10 13:39 13:39 WBC RBC Hgb Hct RDW Plt Count Lymph % (Auto) [place] % (Auto) Lymph # [place] # Seg Neutrophils % Seg Neuts % (Manual) Lymphocytes % (Manual) Nucleated RBC % Seg Neutrophils # Seg Neutrophils # Man Lymphocytes # (Manual) D-Dimer POC ABG pH POC ABG pCO2 POC ABG pO2 VBG pH Sodium 147 H Potassium 3.3 L Chloride 111.9 H Carbon Dioxide BUN 21 H Creatinine Glucose 113 H POC Glucose Hemoglobin A1c Lactic Acid Calcium Phosphorus 1.50 L D Magnesium AST ALT Troponin T 0.317 H* D C-Reactive Protein 10.70 H Total Protein Albumin Triglycerides LDL Cholesterol Direct HDL Cholesterol Urine WBC (Auto) Salicylates Acetaminophen % CD3 Cells % CD19 Cells Absolute CD19 Count Miscellaneous Test Crossmatch 08/18/18 08/19/18 08/19/18 16:51 03:47 04:15 WBC RBC Hgb Hct RDW Plt Count Lymph % (Auto) [place] % (Auto) Lymph # [place] # Seg Neutrophils % Seg Neuts % (Manual) Lymphocytes % (Manual) Nucleated RBC % Seg Neutrophils # Seg Neutrophils # Man Lymphocytes # (Manual) D-Dimer POC ABG pH 7.454 H 7.482 H POC ABG pCO2 POC ABG pO2 65 L VBG pH Sodium 154 H Potassium 3.3 L Chloride 115.1 H Carbon Dioxide BUN 19 H Creatinine Glucose 117 H POC Glucose Hemoglobin A1c Lactic Acid Calcium 7.8 L Phosphorus Magnesium AST ALT Troponin T C-Reactive Protein Total Protein Albumin Triglycerides LDL Cholesterol Direct HDL Cholesterol Urine WBC (Auto) Salicylates Acetaminophen % CD3 Cells % CD19 Cells Absolute CD19 Count Miscellaneous Test Crossmatch 08/19/18 08/19/18 08/20/18 14:32 16:18 03:51 WBC RBC Hgb Hct RDW Plt Count Lymph % (Auto) [place] % (Auto) Lymph # [place] # Seg Neutrophils % Seg Neuts % (Manual) Lymphocytes % (Manual) Nucleated RBC % Seg Neutrophils # Seg Neutrophils # Man Lymphocytes # (Manual) D-Dimer POC ABG pH 7.483 H POC ABG pCO2 33.4 L POC ABG pO2 51 L 74 L VBG pH Sodium Potassium Chloride Carbon Dioxide BUN Creatinine Glucose POC Glucose Hemoglobin A1c Lactic Acid Calcium Phosphorus Magnesium AST ALT Troponin T C-Reactive Protein Total Protein Albumin Triglycerides LDL Cholesterol Direct HDL Cholesterol Urine WBC (Auto) Salicylates Acetaminophen % CD3 Cells 44 L % CD19 Cells 41 H Absolute CD19 Count 1290 H Miscellaneous Test Crossmatch 08/20/18 08/21/18 08/21/18 05:25 03:54 05:45 WBC 24.1 H RBC 2.83 L Hgb 8.8 L Hct 26.7 L RDW 15.7 H Plt Count 127 L Lymph % (Auto) [place] % (Auto) Lymph # [place] # Seg Neutrophils % Seg Neuts % (Manual) 94.0 H Lymphocytes % (Manual) 4.0 L Nucleated RBC % 1.0 H Seg Neutrophils # Seg Neutrophils # Man 22.7 H Lymphocytes # (Manual) 1.0 L D-Dimer POC ABG pH POC ABG pCO2 31.9 L POC ABG pO2 66 L VBG pH Sodium 146 H D Potassium Chloride 111.2 H Carbon Dioxide BUN 24 H Creatinine Glucose 141 H POC Glucose Hemoglobin A1c Lactic Acid Calcium 8.1 L Phosphorus Magnesium AST 65 H ALT 104 H Troponin T C-Reactive Protein Total Protein 6.2 L Albumin 2.6 L Triglycerides LDL Cholesterol Direct HDL Cholesterol Urine WBC (Auto) Salicylates Acetaminophen % CD3 Cells % CD19 Cells Absolute CD19 Count Miscellaneous Test Crossmatch 08/21/18 08/22/18 08/22/18 05:45 06:20 06:45 WBC RBC Hgb Hct RDW Plt Count Lymph % (Auto) [place] % (Auto) Lymph # [place] # Seg Neutrophils % Seg Neuts % (Manual) Lymphocytes % (Manual) Nucleated RBC % Seg Neutrophils # Seg Neutrophils # Man Lymphocytes # (Manual) D-Dimer POC ABG pH POC ABG pCO2 32.9 L POC ABG pO2 VBG pH Sodium Potassium 3.5 L Chloride 109.4 H 112.4 H Carbon Dioxide 21 L 20 L BUN 50 H 61 H Creatinine 2.0 H D 1.9 H Glucose 144 H 154 H POC Glucose Hemoglobin A1c Lactic Acid Calcium 7.6 L 7.8 L Phosphorus Magnesium AST ALT Troponin T C-Reactive Protein Total Protein 5.3 L Albumin 2.1 L Triglycerides LDL Cholesterol Direct HDL Cholesterol Urine WBC (Auto) Salicylates Acetaminophen % CD3 Cells % CD19 Cells Absolute CD19 Count Miscellaneous Test Crossmatch 08/22/18 08/22/18 08/22/18 06:45 15:29 18:40 WBC RBC Hgb Hct RDW Plt Count Lymph % (Auto) [place] % (Auto) Lymph # [place] # Seg Neutrophils % Seg Neuts % (Manual) Lymphocytes % (Manual) Nucleated RBC % Seg Neutrophils # Seg Neutrophils # Man Lymphocytes # (Manual) D-Dimer POC ABG pH POC ABG pCO2 POC ABG pO2 VBG pH Sodium Potassium Chloride Carbon Dioxide BUN Creatinine Glucose POC Glucose 169 H Hemoglobin A1c Lactic Acid Calcium Phosphorus Magnesium AST ALT Troponin T C-Reactive Protein 4.70 H Total Protein Albumin Triglycerides 197 H LDL Cholesterol Direct HDL Cholesterol Urine WBC (Auto) Salicylates Acetaminophen % CD3 Cells % CD19 Cells Absolute CD19 Count Miscellaneous Test Crossmatch 08/23/18 08/23/18 08/23/18 03:59 21:19 Unknown WBC 12.1 H RBC 2.29 L Hgb 7.1 L Hct 21.7 L RDW 15.7 H Plt Count 106 L Lymph % (Auto) [place] % (Auto) Lymph # [place] # Seg Neutrophils % Seg Neuts % (Manual) 92.0 H Lymphocytes % (Manual) 4.0 L Nucleated RBC % Seg Neutrophils # Seg Neutrophils # Man 11.1 H Lymphocytes # (Manual) 0.5 L D-Dimer POC ABG pH 7.306 L POC ABG pCO2 31.3 L POC ABG pO2 119 H 75 L VBG pH Sodium Potassium Chloride Carbon Dioxide BUN Creatinine Glucose POC Glucose Hemoglobin A1c Lactic Acid Calcium Phosphorus Magnesium AST ALT Troponin T C-Reactive Protein Total Protein Albumin Triglycerides LDL Cholesterol Direct HDL Cholesterol Urine WBC (Auto) Salicylates Acetaminophen % CD3 Cells % CD19 Cells Absolute CD19 Count Miscellaneous Test Crossmatch 08/23/18 08/24/18 08/24/18 Unknown 04:18 08:30 WBC 12.8 H RBC 2.24 L Hgb 7.0 L Hct 21.1 L RDW Plt Count Lymph % (Auto) [place] % (Auto) Lymph # [place] # Seg Neutrophils % Seg Neuts % (Manual) 93.0 H Lymphocytes % (Manual) 6.0 L Nucleated RBC % Seg Neutrophils # Seg Neutrophils # Man 11.9 H Lymphocytes # (Manual) 0.8 L D-Dimer POC ABG pH POC ABG pCO2 POC ABG pO2 78 L VBG pH Sodium Potassium Chloride 115.7 H Carbon Dioxide 21 L BUN 64 H Creatinine 2.0 H Glucose 149 H POC Glucose Hemoglobin A1c Lactic Acid Calcium 7.5 L Phosphorus Magnesium AST ALT Troponin T C-Reactive Protein Total Protein 4.8 L Albumin 2.0 L Triglycerides LDL Cholesterol Direct HDL Cholesterol Urine WBC (Auto) Salicylates Acetaminophen % CD3 Cells % CD19 Cells Absolute CD19 Count Miscellaneous Test Crossmatch 08/24/18 08/24/18 08/24/18 08:30 17:44 18:28 WBC RBC Hgb Hct RDW Plt Count Lymph % (Auto) [place] % (Auto) Lymph # [place] # Seg Neutrophils % Seg Neuts % (Manual) Lymphocytes % (Manual) Nucleated RBC % Seg Neutrophils # Seg Neutrophils # Man Lymphocytes # (Manual) D-Dimer POC ABG pH 7.474 H POC ABG pCO2 POC ABG pO2 61 L VBG pH Sodium Potassium Chloride 108.3 H Carbon Dioxide 20 L BUN 65 H Creatinine 2.0 H Glucose 167 H POC Glucose 164 H Hemoglobin A1c Lactic Acid Calcium 7.7 L Phosphorus Magnesium AST ALT Troponin T C-Reactive Protein Total Protein 5.3 L Albumin 2.2 L Triglycerides LDL Cholesterol Direct HDL Cholesterol Urine WBC (Auto) Salicylates Acetaminophen % CD3 Cells % CD19 Cells Absolute CD19 Count Miscellaneous Test Crossmatch 08/25/18 08/25/18 08/25/18 03:35 05:20 05:20 WBC RBC Hgb 6.7 L Hct 21.0 L RDW Plt Count Lymph % (Auto) [place] % (Auto) Lymph # [place] # Seg Neutrophils % Seg Neuts % (Manual) Lymphocytes % (Manual) Nucleated RBC % Seg Neutrophils # Seg Neutrophils # Man Lymphocytes # (Manual) D-Dimer POC ABG pH POC ABG pCO2 POC ABG pO2 79 L VBG pH Sodium Potassium Chloride Carbon Dioxide 21 L BUN 71 H Creatinine 3.1 H D Glucose 171 H POC Glucose Hemoglobin A1c Lactic Acid Calcium 7.5 L Phosphorus Magnesium AST ALT Troponin T C-Reactive Protein Total Protein Albumin Triglycerides LDL Cholesterol Direct HDL Cholesterol Urine WBC (Auto) Salicylates Acetaminophen % CD3 Cells % CD19 Cells Absolute CD19 Count Miscellaneous Test Crossmatch 08/25/18 08/25/18 08/25/18 05:20 08:52 12:42 WBC RBC Hgb Hct RDW Plt Count Lymph % (Auto) [place] % (Auto) Lymph # [place] # Seg Neutrophils % Seg Neuts % (Manual) Lymphocytes % (Manual) Nucleated RBC % Seg Neutrophils # Seg Neutrophils # Man Lymphocytes # (Manual) D-Dimer POC ABG pH POC ABG pCO2 POC ABG pO2 VBG pH Sodium Potassium Chloride Carbon Dioxide BUN Creatinine Glucose POC Glucose 166 H Hemoglobin A1c Lactic Acid Calcium Phosphorus Magnesium AST ALT Troponin T C-Reactive Protein 5.00 H Total Protein Albumin Triglycerides LDL Cholesterol Direct HDL Cholesterol Urine WBC (Auto) Salicylates Acetaminophen % CD3 Cells % CD19 Cells Absolute CD19 Count Miscellaneous Test Crossmatch See Detail 08/25/18 08/26/18 08/26/18 18:05 00:13 04:53 WBC RBC Hgb Hct RDW Plt Count Lymph % (Auto) [place] % (Auto) Lymph # [place] # Seg Neutrophils % Seg Neuts % (Manual) Lymphocytes % (Manual) Nucleated RBC % Seg Neutrophils # Seg Neutrophils # Man Lymphocytes # (Manual) D-Dimer POC ABG pH POC ABG pCO2 30.9 L POC ABG pO2 70 L VBG pH Sodium Potassium Chloride Carbon Dioxide BUN Creatinine Glucose POC Glucose 121 H 164 H Hemoglobin A1c Lactic Acid Calcium Phosphorus Magnesium AST ALT Troponin T C-Reactive Protein Total Protein Albumin Triglycerides LDL Cholesterol Direct HDL Cholesterol Urine WBC (Auto) Salicylates Acetaminophen % CD3 Cells % CD19 Cells Absolute CD19 Count Miscellaneous Test Crossmatch 08/26/18 08/26/18 08/26/18 05:42 06:00 06:00 WBC RBC 2.62 L Hgb 7.7 L Hct 23.0 L RDW 22.0 H Plt Count Lymph % (Auto) 6.3 L [place] % (Auto) Lymph # 0.7 L [place] # Seg Neutrophils % 88.1 H Seg Neuts % (Manual) Lymphocytes % (Manual) Nucleated RBC % Seg Neutrophils # 9.6 H Seg Neutrophils # Man Lymphocytes # (Manual) D-Dimer POC ABG pH POC ABG pCO2 POC ABG pO2 VBG pH Sodium Potassium Chloride Carbon Dioxide 21 L BUN 70 H Creatinine 3.3 H Glucose 146 H POC Glucose 149 H Hemoglobin A1c Lactic Acid Calcium 8.0 L Phosphorus Magnesium AST ALT Troponin T C-Reactive Protein Total Protein Albumin Triglycerides LDL Cholesterol Direct HDL Cholesterol Urine WBC (Auto) Salicylates Acetaminophen % CD3 Cells % CD19 Cells Absolute CD19 Count Miscellaneous Test Crossmatch 08/26/18 08/26/18 08/27/18 11:37 23:54 04:35 WBC RBC 2.50 L Hgb 7.6 L Hct 22.3 L RDW 21.8 H Plt Count Lymph % (Auto) 7.3 L [place] % (Auto) Lymph # 0.7 L [place] # Seg Neutrophils % 85.6 H Seg Neuts % (Manual) Lymphocytes % (Manual) Nucleated RBC % Seg Neutrophils # 8.6 H Seg Neutrophils # Man Lymphocytes # (Manual) D-Dimer POC ABG pH POC ABG pCO2 POC ABG pO2 VBG pH Sodium Potassium Chloride Carbon Dioxide BUN Creatinine Glucose POC Glucose 183 H 150 H Hemoglobin A1c Lactic Acid Calcium Phosphorus Magnesium AST ALT Troponin T C-Reactive Protein Total Protein Albumin Triglycerides LDL Cholesterol Direct HDL Cholesterol Urine WBC (Auto) Salicylates Acetaminophen % CD3 Cells % CD19 Cells Absolute CD19 Count Miscellaneous Test Crossmatch 08/27/18 08/27/18 08/28/18 04:35 12:17 04:43 WBC RBC Hgb Hct RDW Plt Count Lymph % (Auto) [place] % (Auto) Lymph # [place] # Seg Neutrophils % Seg Neuts % (Manual) Lymphocytes % (Manual) Nucleated RBC % Seg Neutrophils # Seg Neutrophils # Man Lymphocytes # (Manual) D-Dimer POC ABG pH POC ABG pCO2 32.1 L 33.8 L POC ABG pO2 68 L 78 L VBG pH Sodium Potassium Chloride Carbon Dioxide 19 L BUN 67 H Creatinine 2.9 H Glucose 155 H POC Glucose Hemoglobin A1c Lactic Acid Calcium Phosphorus 4.70 H Magnesium AST ALT Troponin T C-Reactive Protein Total Protein Albumin Triglycerides LDL Cholesterol Direct HDL Cholesterol Urine WBC (Auto) Salicylates Acetaminophen % CD3 Cells % CD19 Cells Absolute CD19 Count Miscellaneous Test Crossmatch 08/28/18 08/28/18 08/28/18 05:03 05:20 05:20 WBC RBC 2.43 L Hgb 7.4 L Hct 21.8 L RDW 20.8 H Plt Count Lymph % (Auto) 7.6 L [place] % (Auto) 8.7 H Lymph # 0.7 L [place] # Seg Neutrophils % 82.9 H Seg Neuts % (Manual) Lymphocytes % (Manual) Nucleated RBC % Seg Neutrophils # Seg Neutrophils # Man Lymphocytes # (Manual) D-Dimer POC ABG pH POC ABG pCO2 POC ABG pO2 VBG pH Sodium Potassium Chloride 107.8 H Carbon Dioxide 21 L BUN 55 H Creatinine 2.0 H Glucose 177 H POC Glucose 160 H Hemoglobin A1c Lactic Acid Calcium Phosphorus Magnesium AST ALT Troponin T C-Reactive Protein Total Protein Albumin Triglycerides LDL Cholesterol Direct HDL Cholesterol Urine WBC (Auto) Salicylates Acetaminophen % CD3 Cells % CD19 Cells Absolute CD19 Count Miscellaneous Test Crossmatch 08/28/18 08/28/18 08/28/18 12:18 18:58 22:31 WBC RBC Hgb Hct RDW Plt Count Lymph % (Auto) [place] % (Auto) Lymph # [place] # Seg Neutrophils % Seg Neuts % (Manual) Lymphocytes % (Manual) Nucleated RBC % Seg Neutrophils # Seg Neutrophils # Man Lymphocytes # (Manual) D-Dimer POC ABG pH POC ABG pCO2 34.4 L POC ABG pO2 67 L VBG pH Sodium Potassium Chloride Carbon Dioxide BUN Creatinine Glucose POC Glucose 164 H 149 H Hemoglobin A1c Lactic Acid Calcium Phosphorus Magnesium AST ALT Troponin T C-Reactive Protein Total Protein Albumin Triglycerides LDL Cholesterol Direct HDL Cholesterol Urine WBC (Auto) Salicylates Acetaminophen % CD3 Cells % CD19 Cells Absolute CD19 Count Miscellaneous Test Crossmatch 08/28/18 08/29/18 08/29/18 23:33 05:25 05:25 WBC RBC 2.30 L Hgb 7.0 L Hct 20.9 L RDW 21.0 H Plt Count Lymph % (Auto) 11.5 L [place] % (Auto) 9.2 H Lymph # 0.8 L [place] # Seg Neutrophils % 78.8 H Seg Neuts % (Manual) Lymphocytes % (Manual) Nucleated RBC % Seg Neutrophils # Seg Neutrophils # Man Lymphocytes # (Manual) D-Dimer POC ABG pH POC ABG pCO2 POC ABG pO2 VBG pH Sodium Potassium Chloride 111.1 H Carbon Dioxide BUN 55 H Creatinine 1.8 H Glucose 162 H POC Glucose 143 H Hemoglobin A1c Lactic Acid Calcium Phosphorus Magnesium AST 46 H ALT < 5 L Troponin T C-Reactive Protein Total Protein 5.7 L Albumin 2.1 L Triglycerides LDL Cholesterol Direct HDL Cholesterol Urine WBC (Auto) Salicylates Acetaminophen % CD3 Cells % CD19 Cells Absolute CD19 Count Miscellaneous Test Crossmatch 08/29/18 08/29/18 08/30/18 18:19 23:35 05:03 WBC RBC Hgb Hct RDW Plt Count Lymph % (Auto) [place] % (Auto) Lymph # [place] # Seg Neutrophils % Seg Neuts % (Manual) Lymphocytes % (Manual) Nucleated RBC % Seg Neutrophils # Seg Neutrophils # Man Lymphocytes # (Manual) D-Dimer POC ABG pH POC ABG pCO2 POC ABG pO2 VBG pH Sodium Potassium Chloride Carbon Dioxide BUN Creatinine Glucose POC Glucose 155 H 139 H 122 H Hemoglobin A1c Lactic Acid Calcium Phosphorus Magnesium AST ALT Troponin T C-Reactive Protein Total Protein Albumin Triglycerides LDL Cholesterol Direct HDL Cholesterol Urine WBC (Auto) Salicylates Acetaminophen % CD3 Cells % CD19 Cells Absolute CD19 Count Miscellaneous Test Crossmatch 08/30/18 08/30/18 08/30/18 09:33 09:33 09:54 WBC RBC 2.58 L Hgb 7.9 L Hct 23.5 L RDW 20.9 H Plt Count Lymph % (Auto) 8.0 L [place] % (Auto) 9.7 H Lymph # 0.8 L [place] # 1.0 H Seg Neutrophils % 82.1 H Seg Neuts % (Manual) Lymphocytes % (Manual) Nucleated RBC % Seg Neutrophils # 8.2 H Seg Neutrophils # Man Lymphocytes # (Manual) D-Dimer POC ABG pH POC ABG pCO2 POC ABG pO2 VBG pH Sodium 146 H Potassium Chloride 110.7 H Carbon Dioxide BUN 56 H Creatinine 1.9 H Glucose 145 H POC Glucose Hemoglobin A1c Lactic Acid Calcium Phosphorus 4.60 H Magnesium AST ALT < 5 L Troponin T C-Reactive Protein Total Protein Albumin 2.7 L Triglycerides LDL Cholesterol Direct HDL Cholesterol Urine WBC (Auto) Salicylates Acetaminophen % CD3 Cells % CD19 Cells Absolute CD19 Count Miscellaneous Test Flexitest 1 H Crossmatch 08/30/18 08/30/18 08/30/18 09:57 11:26 18:08 WBC RBC Hgb Hct RDW Plt Count Lymph % (Auto) [place] % (Auto) Lymph # [place] # Seg Neutrophils % Seg Neuts % (Manual) Lymphocytes % (Manual) Nucleated RBC % Seg Neutrophils # Seg Neutrophils # Man Lymphocytes # (Manual) D-Dimer POC ABG pH POC ABG pCO2 POC ABG pO2 VBG pH Sodium Potassium Chloride Carbon Dioxide BUN Creatinine Glucose POC Glucose 149 H 156 H Hemoglobin A1c Lactic Acid Calcium Phosphorus Magnesium AST ALT Troponin T C-Reactive Protein Total Protein Albumin Triglycerides LDL Cholesterol Direct HDL Cholesterol Urine WBC (Auto) Salicylates Acetaminophen % CD3 Cells % CD19 Cells Absolute CD19 Count Miscellaneous Test Flexitest 1 H Crossmatch 08/30/18 08/31/18 08/31/18 23:14 05:16 08:40 WBC RBC Hgb Hct RDW Plt Count Lymph % (Auto) [place] % (Auto) Lymph # [place] # Seg Neutrophils % Seg Neuts % (Manual) Lymphocytes % (Manual) Nucleated RBC % Seg Neutrophils # Seg Neutrophils # Man Lymphocytes # (Manual) D-Dimer POC ABG pH POC ABG pCO2 POC ABG pO2 VBG pH Sodium 151 H Potassium Chloride 113.8 H Carbon Dioxide BUN 45 H Creatinine Glucose 144 H POC Glucose 117 H 133 H Hemoglobin A1c Lactic Acid Calcium Phosphorus Magnesium AST ALT Troponin T C-Reactive Protein Total Protein Albumin Triglycerides LDL Cholesterol Direct HDL Cholesterol Urine WBC (Auto) Salicylates Acetaminophen % CD3 Cells % CD19 Cells Absolute CD19 Count Miscellaneous Test Crossmatch 08/31/18 09/01/18 09/01/18 23:46 04:45 04:45 WBC RBC 2.38 L Hgb 7.3 L Hct 22.1 L RDW 21.1 H Plt Count Lymph % (Auto) [place] % (Auto) Lymph # [place] # Seg Neutrophils % Seg Neuts % (Manual) 93.0 H Lymphocytes % (Manual) 4.0 L Nucleated RBC % Seg Neutrophils # Seg Neutrophils # Man 10.1 H Lymphocytes # (Manual) 0.4 L D-Dimer POC ABG pH POC ABG pCO2 POC ABG pO2 VBG pH Sodium 156 H Potassium 3.1 L Chloride 115.2 H Carbon Dioxide BUN 34 H Creatinine Glucose 125 H POC Glucose 124 H Hemoglobin A1c Lactic Acid Calcium Phosphorus Magnesium AST ALT Troponin T C-Reactive Protein Total Protein Albumin Triglycerides LDL Cholesterol Direct HDL Cholesterol Urine WBC (Auto) Salicylates Acetaminophen % CD3 Cells % CD19 Cells Absolute CD19 Count Miscellaneous Test Crossmatch 09/01/18 09/01/18 09/01/18 05:34 11:20 17:52 WBC RBC Hgb Hct RDW Plt Count Lymph % (Auto) [place] % (Auto) Lymph # [place] # Seg Neutrophils % Seg Neuts % (Manual) Lymphocytes % (Manual) Nucleated RBC % Seg Neutrophils # Seg Neutrophils # Man Lymphocytes # (Manual) D-Dimer POC ABG pH 7.553 H POC ABG pCO2 POC ABG pO2 74 L VBG pH Sodium Potassium Chloride Carbon Dioxide BUN Creatinine Glucose POC Glucose 128 H 146 H Hemoglobin A1c Lactic Acid Calcium Phosphorus Magnesium AST ALT Troponin T C-Reactive Protein Total Protein Albumin Triglycerides LDL Cholesterol Direct HDL Cholesterol Urine WBC (Auto) Salicylates Acetaminophen % CD3 Cells % CD19 Cells Absolute CD19 Count Miscellaneous Test Crossmatch 09/01/18 09/02/18 09/02/18 17:52 04:13 04:58 WBC 16.4 H RBC 2.64 L Hgb 7.9 L Hct 24.3 L RDW 20.8 H Plt Count Lymph % (Auto) [place] % (Auto) Lymph # [place] # Seg Neutrophils % Seg Neuts % (Manual) 96.0 H Lymphocytes % (Manual) 1.0 L Nucleated RBC % Seg Neutrophils # Seg Neutrophils # Man 15.7 H Lymphocytes # (Manual) 0.2 L D-Dimer POC ABG pH 7.488 H POC ABG pCO2 POC ABG pO2 63 L VBG pH Sodium Potassium Chloride Carbon Dioxide BUN Creatinine Glucose POC Glucose 143 H Hemoglobin A1c Lactic Acid Calcium Phosphorus Magnesium AST ALT Troponin T C-Reactive Protein Total Protein Albumin Triglycerides LDL Cholesterol Direct HDL Cholesterol Urine WBC (Auto) Salicylates Acetaminophen % CD3 Cells % CD19 Cells Absolute CD19 Count Miscellaneous Test Crossmatch 09/02/18 09/02/18 09/02/18 04:58 11:03 18:18 WBC RBC Hgb Hct RDW Plt Count Lymph % (Auto) [place] % (Auto) Lymph # [place] # Seg Neutrophils % Seg Neuts % (Manual) Lymphocytes % (Manual) Nucleated RBC % Seg Neutrophils # Seg Neutrophils # Man Lymphocytes # (Manual) D-Dimer POC ABG pH 7.344 L POC ABG pCO2 52.8 H POC ABG pO2 VBG pH Sodium 158 H Potassium 2.9 L* Chloride 115.7 H Carbon Dioxide BUN 27 H Creatinine 0.6 L Glucose 128 H POC Glucose 121 H Hemoglobin A1c Lactic Acid Calcium Phosphorus Magnesium 1.60 L AST 64 H ALT Troponin T C-Reactive Protein Total Protein Albumin 2.6 L Triglycerides LDL Cholesterol Direct HDL Cholesterol Urine WBC (Auto) Salicylates Acetaminophen % CD3 Cells % CD19 Cells Absolute CD19 Count Miscellaneous Test Crossmatch 09/02/18 09/03/18 09/03/18 23:06 03:36 04:25 WBC RBC 2.20 L Hgb 6.7 L Hct 20.9 L RDW 21.1 H Plt Count Lymph % (Auto) [place] % (Auto) Lymph # [place] # Seg Neutrophils % Seg Neuts % (Manual) 90.0 H Lymphocytes % (Manual) 5.0 L Nucleated RBC % Seg Neutrophils # Seg Neutrophils # Man 8.7 H Lymphocytes # (Manual) 0.5 L D-Dimer POC ABG pH POC ABG pCO2 POC ABG pO2 54 L VBG pH Sodium Potassium Chloride Carbon Dioxide BUN Creatinine Glucose POC Glucose 121 H Hemoglobin A1c Lactic Acid Calcium Phosphorus Magnesium AST ALT Troponin T C-Reactive Protein Total Protein Albumin Triglycerides LDL Cholesterol Direct HDL Cholesterol Urine WBC (Auto) Salicylates Acetaminophen % CD3 Cells % CD19 Cells Absolute CD19 Count Miscellaneous Test Crossmatch 09/03/18 09/03/18 09/03/18 04:25 05:45 10:24 WBC RBC Hgb Hct RDW Plt Count Lymph % (Auto) [place] % (Auto) Lymph # [place] # Seg Neutrophils % Seg Neuts % (Manual) Lymphocytes % (Manual) Nucleated RBC % Seg Neutrophils # Seg Neutrophils # Man Lymphocytes # (Manual) D-Dimer POC ABG pH POC ABG pCO2 POC ABG pO2 VBG pH Sodium 158 H Potassium 3.1 L Chloride 120.4 H Carbon Dioxide BUN 25 H Creatinine 0.6 L Glucose 127 H POC Glucose 178 H Hemoglobin A1c Lactic Acid Calcium 7.9 L Phosphorus Magnesium AST ALT Troponin T C-Reactive Protein Total Protein 6.0 L Albumin 2.4 L Triglycerides LDL Cholesterol Direct HDL Cholesterol Urine WBC (Auto) Salicylates Acetaminophen % CD3 Cells % CD19 Cells Absolute CD19 Count Miscellaneous Test Crossmatch See Detail 09/03/18 09/03/18 09/04/18 11:27 23:09 04:42 WBC RBC Hgb Hct RDW Plt Count Lymph % (Auto) [place] % (Auto) Lymph # [place] # Seg Neutrophils % Seg Neuts % (Manual) Lymphocytes % (Manual) Nucleated RBC % Seg Neutrophils # Seg Neutrophils # Man Lymphocytes # (Manual) D-Dimer POC ABG pH 7.293 L POC ABG pCO2 50.2 H POC ABG pO2 VBG pH Sodium Potassium Chloride Carbon Dioxide BUN Creatinine Glucose POC Glucose 107 H 139 H Hemoglobin A1c Lactic Acid Calcium Phosphorus Magnesium AST ALT Troponin T C-Reactive Protein Total Protein Albumin Triglycerides LDL Cholesterol Direct HDL Cholesterol Urine WBC (Auto) Salicylates Acetaminophen % CD3 Cells % CD19 Cells Absolute CD19 Count Miscellaneous Test Crossmatch 09/04/18 09/04/18 09/04/18 05:00 06:30 06:30 WBC RBC 2.32 L Hgb 7.0 L Hct 21.9 L RDW 20.2 H Plt Count Lymph % (Auto) [place] % (Auto) Lymph # [place] # Seg Neutrophils % 80.1 H Seg Neuts % (Manual) Lymphocytes % (Manual) Nucleated RBC % Seg Neutrophils # 8.2 H Seg Neutrophils # Man Lymphocytes # (Manual) D-Dimer POC ABG pH POC ABG pCO2 POC ABG pO2 VBG pH Sodium 150 H D Potassium Chloride 115.9 H Carbon Dioxide BUN 21 H Creatinine 0.6 L Glucose 125 H POC Glucose 154 H Hemoglobin A1c Lactic Acid Calcium 7.9 L Phosphorus Magnesium 1.50 L AST ALT Troponin T C-Reactive Protein Total Protein Albumin Triglycerides LDL Cholesterol Direct HDL Cholesterol Urine WBC (Auto) Salicylates Acetaminophen % CD3 Cells % CD19 Cells Absolute CD19 Count Miscellaneous Test Crossmatch 09/04/18 09/04/18 09/04/18 11:20 11:51 18:27 WBC RBC Hgb Hct RDW Plt Count Lymph % (Auto) [place] % (Auto) Lymph # [place] # Seg Neutrophils % Seg Neuts % (Manual) Lymphocytes % (Manual) Nucleated RBC % Seg Neutrophils # Seg Neutrophils # Man Lymphocytes # (Manual) D-Dimer POC ABG pH 7.244 L POC ABG pCO2 54.2 H POC ABG pO2 62 L VBG pH Sodium Potassium Chloride Carbon Dioxide BUN Creatinine Glucose POC Glucose 156 H 129 H Hemoglobin A1c Lactic Acid Calcium Phosphorus Magnesium AST ALT Troponin T C-Reactive Protein Total Protein Albumin Triglycerides LDL Cholesterol Direct HDL Cholesterol Urine WBC (Auto) Salicylates Acetaminophen % CD3 Cells % CD19 Cells Absolute CD19 Count Miscellaneous Test Crossmatch 09/05/18 09/05/18 09/05/18 03:46 04:00 04:00 WBC RBC 2.13 L Hgb 6.4 L Hct 20.1 L RDW 19.9 H Plt Count 117 L Lymph % (Auto) [place] % (Auto) Lymph # 0.9 L [place] # Seg Neutrophils % 81.7 H Seg Neuts % (Manual) Lymphocytes % (Manual) Nucleated RBC % Seg Neutrophils # Seg Neutrophils # Man Lymphocytes # (Manual) D-Dimer POC ABG pH 7.282 L POC ABG pCO2 57.3 H POC ABG pO2 124 H VBG pH Sodium Potassium Chloride 111.0 H Carbon Dioxide BUN 20 H Creatinine Glucose 130 H POC Glucose Hemoglobin A1c Lactic Acid Calcium 7.8 L Phosphorus Magnesium 1.60 L AST ALT Troponin T C-Reactive Protein Total Protein Albumin Triglycerides LDL Cholesterol Direct HDL Cholesterol Urine WBC (Auto) Salicylates Acetaminophen % CD3 Cells % CD19 Cells Absolute CD19 Count Miscellaneous Test Crossmatch Chest x-ray: image reviewed (mild increase in bilateral pulmonary infiltrates) Allied health notes reviewed: RT
--- NOTE | 2018-09-05 12:46 | Progress Note ---
Assessment and Plan 1. Acute kidney injury: Vasomotor CHANDANA, likely ATN. Creatinine level is better. Monitor renal function. Avoid nephrotoxic agents. Meds dosage based on GFR. 2. FEN: Hypernatremia, improving with water flushes. Hypokalemia, K is better. Metabolic acidosis, improved. Replete Mg. 3. Bladder retention: S/p manrique catheter. 4. Acute encephalopathy. 5. Respiratory failure: On vent. 6. Sepsis: Followed by ID. 7. Dilated cardiomyopathy with systolic LV dysfunction. 8. Anemia: PRBC. 9. Left LE DVT. D/w her at the bedside. Subjective Date of service: 09/05/18 Principal diagnosis: Acute hypoxemic hypercapnic Resp failure; AE-COPD; Acute kidney injury Interval history: Patient was seen and examined at the bedside. Objective - Vital Signs Vital signs: Vital Signs - 12hr 09/05/18 09/05/18 09/05/18 01:00 01:15 01:30 Temperature Pulse Rate 83 82 82 Pulse Rate [ Anterior Bilateral Throughout] Pulse Rate [ Apical] Respiratory 18 18 15 Rate Respiratory Rate [Anterior Bilateral Throughout] Blood Pressure 108/54 100/52 97/42 O2 Sat by Pulse 99 100 99 Oximetry 09/05/18 09/05/18 09/05/18 01:45 02:00 02:08 Temperature Pulse Rate 81 83 Pulse Rate [ 83 Anterior Bilateral Throughout] Pulse Rate [ Apical] Respiratory 15 13 Rate Respiratory 31 H Rate [Anterior Bilateral Throughout] Blood Pressure 108/48 106/49 O2 Sat by Pulse 100 98 Oximetry 09/05/18 09/05/18 09/05/18 02:15 02:23 02:30 Temperature Pulse Rate 81 82 Pulse Rate [ 85 Anterior Bilateral Throughout] Pulse Rate [ Apical] Respiratory 18 16 Rate Respiratory 31 H Rate [Anterior Bilateral Throughout] Blood Pressure 102/46 99/47 O2 Sat by Pulse 100 100 Oximetry 09/05/18 09/05/18 09/05/18 02:45 03:00 03:15 Temperature Pulse Rate 81 81 81 Pulse Rate [ Anterior Bilateral Throughout] Pulse Rate [ Apical] Respiratory 16 25 H 21 Rate Respiratory Rate [Anterior Bilateral Throughout] Blood Pressure 108/46 107/45 103/48 O2 Sat by Pulse 100 100 100 Oximetry 09/05/18 09/05/18 09/05/18 03:30 03:35 03:45 Temperature Pulse Rate 80 81 80 Pulse Rate [ Anterior Bilateral Throughout] Pulse Rate [ Apical] Respiratory 16 10 L Rate Respiratory Rate [Anterior Bilateral Throughout] Blood Pressure 109/46 109/46 101/45 O2 Sat by Pulse 100 98 99 Oximetry 09/05/18 09/05/18 09/05/18 04:00 04:15 04:30 Temperature 98.8 F Pulse Rate 81 81 90 Pulse Rate [ Anterior Bilateral Throughout] Pulse Rate [ 98 H Apical] Respiratory 18 12 21 Rate Respiratory Rate [Anterior Bilateral Throughout] Blood Pressure 106/48 101/45 120/48 O2 Sat by Pulse 99 98 98 Oximetry 09/05/18 09/05/18 09/05/18 04:46 05:00 05:16 Temperature Pulse Rate 88 88 86 Pulse Rate [ Anterior Bilateral Throughout] Pulse Rate [ Apical] Respiratory 17 17 12 Rate Respiratory Rate [Anterior Bilateral Throughout] Blood Pressure 117/45 108/54 108/52 O2 Sat by Pulse 100 100 100 Oximetry 09/05/18 09/05/18 09/05/18 05:30 05:45 06:00 Temperature Pulse Rate 84 80 81 Pulse Rate [ Anterior Bilateral Throughout] Pulse Rate [ Apical] Respiratory 13 10 L 11 L Rate Respiratory Rate [Anterior Bilateral Throughout] Blood Pressure 117/51 112/53 112/53 O2 Sat by Pulse 100 100 100 Oximetry 09/05/18 09/05/18 09/05/18 06:15 06:29 06:30 Temperature Pulse Rate 86 97 H 89 Pulse Rate [ Anterior Bilateral Throughout] Pulse Rate [ Apical] Respiratory 9 L 14 Rate Respiratory Rate [Anterior Bilateral Throughout] Blood Pressure 108/51 108/51 117/58 O2 Sat by Pulse 100 100 Oximetry 09/05/18 09/05/18 09/05/18 06:45 07:00 07:15 Temperature Pulse Rate 87 88 89 Pulse Rate [ Anterior Bilateral Throughout] Pulse Rate [ Apical] Respiratory 16 11 L 12 Rate Respiratory Rate [Anterior Bilateral Throughout] Blood Pressure 112/53 117/52 121/48 O2 Sat by Pulse 100 100 100 Oximetry 09/05/18 09/05/18 09/05/18 07:30 07:45 08:00 Temperature 99.4 F Pulse Rate 87 89 86 Pulse Rate [ Anterior Bilateral Throughout] Pulse Rate [ Apical] Respiratory 12 12 14 Rate Respiratory Rate [Anterior Bilateral Throughout] Blood Pressure 116/54 128/62 117/50 O2 Sat by Pulse 100 99 100 Oximetry 09/05/18 09/05/18 09/05/18 08:11 08:15 08:27 Temperature Pulse Rate 94 H 89 Pulse Rate [ 89 84 Anterior Bilateral Throughout] Pulse Rate [ Apical] Respiratory 12 Rate Respiratory 34 H 30 H Rate [Anterior Bilateral Throughout] Blood Pressure 117/50 116/52 O2 Sat by Pulse 100 100 Oximetry 09/05/18 09/05/18 09/05/18 08:29 08:30 08:45 Temperature Pulse Rate 91 H 88 93 H Pulse Rate [ Anterior Bilateral Throughout] Pulse Rate [ Apical] Respiratory 10 L 12 Rate Respiratory Rate [Anterior Bilateral Throughout] Blood Pressure 116/52 111/48 101/46 O2 Sat by Pulse 100 100 99 Oximetry 09/05/18 09/05/18 09/05/18 09:00 09:16 09:26 Temperature Pulse Rate 104 H 107 H Pulse Rate [ Anterior Bilateral Throughout] Pulse Rate [ Apical] Respiratory 23 23 39 H Rate Respiratory Rate [Anterior Bilateral Throughout] Blood Pressure 101/46 117/66 O2 Sat by Pulse 94 92 Oximetry 09/05/18 09/05/18 09/05/18 09:30 09:45 10:00 Temperature Pulse Rate 105 H 102 H 103 H Pulse Rate [ Anterior Bilateral Throughout] Pulse Rate [ Apical] Respiratory 27 H 25 H 22 Rate Respiratory Rate [Anterior Bilateral Throughout] Blood Pressure 120/71 127/63 133/63 O2 Sat by Pulse 89 92 95 Oximetry 09/05/18 09/05/18 09/05/18 10:05 10:15 10:30 Temperature Pulse Rate 106 H 105 H 119 H Pulse Rate [ Anterior Bilateral Throughout] Pulse Rate [ Apical] Respiratory 25 H 38 H Rate Respiratory Rate [Anterior Bilateral Throughout] Blood Pressure 133/63 123/63 108/53 O2 Sat by Pulse 94 82 L Oximetry 09/05/18 09/05/18 09/05/18 10:46 11:00 11:15 Temperature Pulse Rate 101 H 100 H 94 H Pulse Rate [ Anterior Bilateral Throughout] Pulse Rate [ Apical] Respiratory 19 19 21 Rate Respiratory Rate [Anterior Bilateral Throughout] Blood Pressure 94/39 97/41 96/47 O2 Sat by Pulse 96 99 97 Oximetry 09/05/18 09/05/18 09/05/18 11:27 11:30 11:39 Temperature 101.5 F H Pulse Rate 95 H 91 H 99 H Pulse Rate [ Anterior Bilateral Throughout] Pulse Rate [ Apical] Respiratory 17 37 H Rate Respiratory Rate [Anterior Bilateral Throughout] Blood Pressure 96/47 98/44 91/44 O2 Sat by Pulse 98 98 96 Oximetry 09/05/18 09/05/18 09/05/18 11:40 11:50 11:54 Temperature 100.7 F H Pulse Rate 92 H 107 H 93 H Pulse Rate [ Anterior Bilateral Throughout] Pulse Rate [ Apical] Respiratory 17 18 36 H Rate Respiratory Rate [Anterior Bilateral Throughout] Blood Pressure 98/44 91/44 97/43 O2 Sat by Pulse 97 97 97 Oximetry - General Appearance General appearance: well-developed, appears stated age, sedated on ventilator, intubated EENT: ATNC Neck: supple Respiratory: Present: Other (coarse breath sounds) Cardiology: regular, S1S2, no murmurs Gastrointestinal: normoactive bowel sounds, no tenderness, no distended Integumentary: no rash Neurologic: other (sedated) Musculoskeletal: other (LE edema, L > R) - Lab 09/05/18 04:00 09/05/18 04:00 Most recent lab results Calcium 7.8 mg/dL (8.4-10.2) L 09/05/18 04:00 Phosphorus 3.20 mg/dL (2.5-4.5) 09/04/18 06:30 Magnesium 1.60 mg/dL (1.7-2.3) L 09/05/18 04:00 Medications & Allergies - Medications Allergies/Adverse Reactions: Allergies No Known Allergies Allergy (Unverified 08/15/18 16:49) Home Medications: Home Medications Medication Instructions Recorded Confirmed Last Taken Type Carvedilol 6.25 mg PO BID 08/15/18 08/15/18 Unknown History DULoxetine 60 mg PO QDAY 08/15/18 08/15/18 Unknown History Gabapentin 600 mg PO Q6HR PRN 08/15/18 08/15/18 Unknown History Methylphenidate 5 mg PO TID 08/15/18 08/15/18 Unknown History Morphabond ER 60 mg PO Q12HR 08/15/18 08/15/18 Unknown History Pravastatin Sodium 10 mg PO QDAY 08/15/18 08/15/18 Unknown History Tizanidine HCl 4 mg PO Q12HR 08/15/18 08/15/18 Unknown History oxyCODONE /ACETAMINOPHEN 7.5 - 325 mg PO Q8HR 08/15/18 08/15/18 Unknown History ALBUTEROL Inhaler(NF) 90 mcg IH TID 08/29/18 08/29/18 Unknown History Omeprazole-Bicarb 40-1,100 Cap 40 mg PO DAILY 08/29/18 08/29/18 Unknown History Active Medications: Generic Name Dose Route Start Last Admin Trade Name Freq PRN Reason Stop Dose Admin Acetaminophen 650 mg 08/15/18 22:12 09/05/18 11:33 Tylenol PO 650 mg Q4H PRN Administration Pain MILD(1-3)/Fever >100.5/MONDRAGON Albuterol 2.5 mg 08/17/18 17:00 Proventil IH Q3HRT PRN Shortness Of Breath Albuterol/Ipratropium 1 ampul 08/20/18 14:00 09/05/18 08:15 Duoneb *Not For Prn Use* IH Not Given Q6HRT [facility] Lipase/Protease/Amylase 1 each 09/02/18 10:40 Pancreaze 10,500 Unit FEEDTUBE PRN PRN For Clogged Feeding Tube Arformoterol Tartrate 15 mcg 08/18/18 20:00 09/05/18 08:14 Brovana Nebu IH 15 mcg Q12HRT [facility] Administration Budesonide 0.5 mg 08/18/18 20:00 09/05/18 08:14 Pulmicort IH 0.5 mg Q12HRT [facility] Administration Carvedilol 3.125 mg 08/26/18 15:19 09/05/18 10:05 Coreg PO 3.125 mg BID [facility] Administration Duloxetine HCl 60 mg 08/16/18 10:00 08/30/18 14:35 Cymbalta PO Not Given QDAY [facility] Enoxaparin Sodium 100 mg 09/01/18 22:00 09/05/18 10:04 Lovenox 1 mg/kg (100 mg) 100 mg SUB-Q Administration Q12HR [facility] Famotidine 20 mg 09/05/18 10:00 09/05/18 10:05 Pepcid PO 20 mg BID [facility] Administration Fentanyl 50 mcg 09/02/18 10:17 09/05/18 10:32 Sublimaze IV 50 mcg Q10MIN PRN Administration ANALGESIA Hydralazine HCl 10 mg 08/19/18 13:59 08/29/18 14:22 Apresoline IV 10 mg Q3H PRN Administration Hydralazine HCl 25 mg 09/01/18 14:00 09/05/18 06:29 Apresoline PO 25 mg Q8HR [facility] Administration Hydrophilic Ointment 1 applic 08/15/18 21:55 09/01/18 09:07 Vaseline Lip Therapy TP 1 applic Q2HR PRN Administration Dry Lips Fentanyl Citrate 2,000 mcg in 100 mls @ 4.765 mls/hr 09/02/18 11:00 09/05/18 10:03 Fentanyl Drip Premix IV 4 mcg/kg/hr TITR [facility] 19.06 mls/hr Administration Protocol 1 MCG/KG/HR Micafungin Sodium 100 mg/ 100 mls @ 100 mls/hr 09/02/18 15:00 09/04/18 09:29 Sodium Chloride IV 100 mls/hr QDAY [facility] Administration Protocol Vancomycin HCl 1,500 mg/ 530 mls @ 333.333 mls/hr 09/03/18 04:00 09/05/18 06:28 Sodium Chloride IV 333.333 mls/hr Q12H [facility] Administration Potassium Chloride 20 meq/ 1,019.625 mls @ 75 mls/hr 09/04/18 02:00 09/05/18 01:20 Sodium Chloride 38.5 meq/ IV 75 mls/hr Dextrose DIRECT [facility] Administration Meropenem 1,000 mg/ Sodium 100 mls @ 100 mls/hr 09/04/18 18:00 09/05/18 10:02 Chloride IV 100 mls/hr Q8H [facility] Administration Protocol Insulin Human Lispro 0 unit 09/04/18 18:00 09/05/18 06:29 Humalog SUB-Q Not Given Q6HR [facility] Protocol Metoclopramide HCl 5 mg 08/15/18 22:50 Reglan IV Q6H PRN Nausea And Vomiting Morphine Sulfate 1 mg 08/29/18 15:29 09/05/18 09:26 Morphine IV 1 mg Q4H PRN Administration Pain, Moderate (4-6) Ondansetron HCl 4 mg 08/15/18 22:12 08/31/18 17:52 Zofran IV 4 mg Q8H PRN Administration Nausea And Vomiting Quetiapine Fumarate 200 mg 09/04/18 15:00 09/05/18 10:04 Seroquel PO 200 mg BID [facility] Administration Simple Syrup 15 ml 09/02/18 11:24 Simple Syrup FEEDTUBE PRN PRN Hypoglycemia Simple Syrup 30 ml 09/02/18 11:24 Simple Syrup FEEDTUBE PRN PRN Hypoglycemia Sodium Bicarbonate 325 mg 09/02/18 10:40 Sodium Bicarbonate FEEDTUBE PRN PRN For Clogged Feeding Tube Sodium Chloride 10 ml 08/15/18 22:12 09/04/18 09:35 Sodium Chloride Flush Syringe 10 Ml IV 10 ml PRN PRN Administration LINE FLUSH
[2018-09-05] MEDS: MYCAMINE 100 MG in NACL 0.9% 100 ML IV SCH (14:52)
[2018-09-05] MEDS: MORPHINE PO SCH ×2 (14:58→19:06)
--- NOTE | 2018-09-05 15:45 | Consultation ---
History of Present Illness - Reason for Consult Consult date: 09/05/18 Possible PE - History of Present Illness Patient is 68 years old female with history of COPD, arthritis with multiple surgeries including cervical spine and lumbar spine. Patient followed by pain medicine clinic. Patient brought to the emergency room via EMS after patient found to be with altered mental status and decreased responsiveness by her . Patient is not communicating so most of the history is from the . EMS stated that patient found to have an oxygen saturation of 72% and brought to the emergency room with a non rebreather with an O2 sat of 91%. Patient is tachypneic with a respiratory rate of 48. Decision to intubate the patient was made. Patient intubated by me. Patient found to have a blood pressure of 87/41. The right internal jugular vein central line placed by me for fluid resuscitation. Patient stated that patient was complaining of nausea, vomiting and diarrhea for the last 5 days. Patient on multiple pain medications. Patient stated that patient had endoscopy and colonoscopy 7 days ago for possible GI bleed. He stated that she was told that her result was negative for acute finding. Patient stated that patient never complained of any chest pain or shortness of breath. During admission for aspiration pneumonia, patient had a second episode of witnessed aspiration pneumonia requiring reintubation. She was also found to have infrapopliteal left lower extremity DVT. There is some concern about possible pulmonary embolism. Patient is not tachycardic. There is also a history of possible GI bleed although endoscopy has been negative. Vascular was consult at for further evaluation Past History Past Medical History: COPD Past Surgical History: Other (Neck and back surgery) Social history: , lives with family, full code Family history: other (unable to obtain, no family at bedside) Medications and Allergies Allergies Allergy/AdvReac Type Severity Reaction Status Date / Time No Known Allergies Allergy Unverified 08/15/18 16:49 Home Medications Medication Instructions Recorded Confirmed Last Taken Type Carvedilol 6.25 mg PO BID 08/15/18 08/15/18 Unknown History DULoxetine 60 mg PO QDAY 08/15/18 08/15/18 Unknown History Gabapentin 600 mg PO Q6HR PRN 08/15/18 08/15/18 Unknown History Methylphenidate 5 mg PO TID 08/15/18 08/15/18 Unknown History Morphabond ER 60 mg PO Q12HR 08/15/18 08/15/18 Unknown History Pravastatin Sodium 10 mg PO QDAY 08/15/18 08/15/18 Unknown History Tizanidine HCl 4 mg PO Q12HR 08/15/18 08/15/18 Unknown History oxyCODONE /ACETAMINOPHEN 7.5 - 325 mg PO Q8HR 08/15/18 08/15/18 Unknown History ALBUTEROL Inhaler(NF) 90 mcg IH TID 08/29/18 08/29/18 Unknown History Omeprazole-Bicarb 40-1,100 Cap 40 mg PO DAILY 08/29/18 08/29/18 Unknown History Active Meds: Active Medications Acetaminophen (Tylenol) 650 mg PO Q4H PRN PRN Reason: Pain MILD(1-3)/Fever >100.5/MONDRAGON Last Admin: 09/05/18 11:33 Dose: 650 mg Documented by: Albuterol (Proventil) 2.5 mg IH Q3HRT PRN PRN Reason: Shortness Of Breath Albuterol/Ipratropium (Duoneb *Not For Prn Use*) 1 ampul IH Q6HRT [facility] Last Admin: 09/05/18 08:15 Dose: Not Given Documented by: Lipase/Protease/Amylase (Alis Elizabeth 10,500 Unit) 1 each FEEDTUBE PRN PRN PRN Reason: For Clogged Feeding Tube Arformoterol Tartrate (Brovana Nebu) 15 mcg IH Q12HRT [facility] Last Admin: 09/05/18 08:14 Dose: 15 mcg Documented by: Budesonide (Pulmicort) 0.5 mg IH Q12HRT [facility] Last Admin: 09/05/18 08:14 Dose: 0.5 mg Documented by: Carvedilol (Coreg) 3.125 mg PO BID [facility] Last Admin: 09/05/18 10:05 Dose: 3.125 mg Documented by: Duloxetine HCl (Cymbalta) 60 mg PO QDAY [facility] Last Admin: 08/30/18 14:35 Dose: Not Given Documented by: Enoxaparin Sodium (Lovenox) 100 mg 1 mg/kg (100 mg) SUB-Q Q12HR [facility] Last Admin: 09/05/18 10:04 Dose: 100 mg Documented by: Famotidine (Pepcid) 20 mg PO BID [facility] Last Admin: 09/05/18 10:05 Dose: 20 mg Documented by: Fentanyl (Sublimaze) 50 mcg IV Q10MIN PRN PRN Reason: ANALGESIA Last Admin: 09/05/18 10:32 Dose: 50 mcg Documented by: Hydralazine HCl (Apresoline) 10 mg IV Q3H PRN Last Admin: 08/29/18 14:22 Dose: 10 mg Documented by: Hydralazine HCl (Apresoline) 25 mg PO Q8HR [facility] Last Admin: 09/05/18 14:59 Dose: 25 mg Documented by: Hydrophilic Ointment (Vaseline Lip Therapy) 1 applic TP Q2HR PRN PRN Reason: Dry Lips Last Admin: 09/01/18 09:07 Dose: 1 applic Documented by: Fentanyl Citrate (Fentanyl Drip Premix) 2,000 mcg in 100 mls @ 4.765 mls/hr IV TITR [facility]; Protocol Last Admin: 09/05/18 15:23 Dose: 4 mcg/kg/hr, 19.06 mls/hr Documented by: Micafungin Sodium 100 mg/ (Sodium Chloride) 100 mls @ 100 mls/hr IV QDAY [facility]; Protocol Last Admin: 09/05/18 14:52 Dose: 100 mls/hr Documented by: Vancomycin HCl 1,500 mg/ (Sodium Chloride) 530 mls @ 333.333 mls/hr IV Q12H [facility] Last Admin: 09/05/18 06:28 Dose: 333.333 mls/hr Documented by: Meropenem 1,000 mg/ Sodium (Chloride) 100 mls @ 100 mls/hr IV Q8H [facility]; Protocol Last Admin: 09/05/18 10:02 Dose: 100 mls/hr Documented by: Insulin Human Lispro (Humalog) 0 unit SUB-Q Q6HR [facility]; Protocol Last Admin: 09/05/18 14:50 Dose: Not Given Documented by: Metoclopramide HCl (Reglan) 5 mg IV Q6H PRN PRN Reason: Nausea And Vomiting Morphine Sulfate (Morphine) 1 mg IV Q4H PRN PRN Reason: Pain, Moderate (4-6) Last Admin: 09/05/18 09:26 Dose: 1 mg Documented by: Morphine Sulfate (Morphine) 30 mg PO Q6HR [facility] Last Admin: 09/05/18 14:58 Dose: 30 mg Documented by: Ondansetron HCl (Zofran) 4 mg IV Q8H PRN PRN Reason: Nausea And Vomiting Last Admin: 08/31/18 17:52 Dose: 4 mg Documented by: Quetiapine Fumarate (Seroquel) 200 mg PO BID [facility] Last Admin: 09/05/18 10:04 Dose: 200 mg Documented by: Simple Syrup (Simple Syrup) 15 ml FEEDTUBE PRN PRN PRN Reason: Hypoglycemia Simple Syrup (Simple Syrup) 30 ml FEEDTUBE PRN PRN PRN Reason: Hypoglycemia Sodium Bicarbonate (Sodium Bicarbonate) 325 mg FEEDTUBE PRN PRN PRN Reason: For Clogged Feeding Tube Sodium Chloride (Sodium Chloride Flush Syringe 10 Ml) 10 ml IV PRN PRN PRN Reason: LINE FLUSH Last Admin: 09/04/18 09:35 Dose: 10 ml Documented by: Review of Systems ROS unobtainable: due to mental status Exam - Constitutional Vitals: Temp Pulse Resp BP Pulse Ox 101.0 F H 83 11 L 106/51 98 09/05/18 13:54 09/05/18 15:00 09/05/18 15:00 09/05/18 15:00 09/05/18 15:00 General appearance: Present: other (intubated) - EENT ENT: other (intubated) - Respiratory Respiratory effort: other (intubated) - Extremities Extremities: pulses intact, normal temperature Extremity abnormal: edema (left lower extremity greater than right) - Abdominal General gastrointestinal: Present: other (obese) - Psychiatric Psychiatric: other (intubated) Results - Labs CBC & Chem 7: 09/05/18 04:00 09/05/18 04:00 Labs: Abnormal lab results 09/03/18 09/04/18 09/05/18 Range/Units 10:24 18:27 03:46 RBC (3.65-5.03) M/mm3 Hgb (10.1-14.3) gm/dl Hct (30.3-42.9) % RDW (13.2-15.2) % Plt Count (140-440) K/mm3 Lymph # (1.2-5.4) K/mm3 Seg Neutrophils % (40.0-70.0) % POC ABG pH 7.282 L (7.35-7.45) POC ABG pCO2 57.3 H (35-45) POC ABG pO2 124 H (80-105) Chloride (98-107) mmol/L BUN (7-17) mg/dL Glucose (65-100) mg/dL POC Glucose 129 H (70-105) Calcium (8.4-10.2) mg/dL Magnesium (1.7-2.3) mg/dL Crossmatch See Detail 09/05/18 09/05/18 09/05/18 Range/Units 04:00 04:00 12:15 RBC 2.13 L (3.65-5.03) M/mm3 Hgb 6.4 L (10.1-14.3) gm/dl Hct 20.1 L (30.3-42.9) % RDW 19.9 H (13.2-15.2) % Plt Count 117 L (140-440) K/mm3 Lymph # 0.9 L (1.2-5.4) K/mm3 Seg Neutrophils % 81.7 H (40.0-70.0) % POC ABG pH (7.35-7.45) POC ABG pCO2 (35-45) POC ABG pO2 (80-105) Chloride 111.0 H (98-107) mmol/L BUN 20 H (7-17) mg/dL Glucose 130 H (65-100) mg/dL POC Glucose 143 H (70-105) Calcium 7.8 L (8.4-10.2) mg/dL Magnesium 1.60 L (1.7-2.3) mg/dL Crossmatch Assessment and Plan 68-year-old female with aspiration pneumonia 2 with concern for superimposed pulmonary embolism. Patient has left lower extremity DVT. This was infrapopliteal. I'll repeat venous ultrasound for reevaluation. Patient is not tachycardic which suggests that if pulmonary embolism is present it is likely not submassive. There is a history of possible GI bleed which makes thrombolysis complicated if PE is present. Direct pulmonary thrombectomy would have to be considered. Recommend CT angiogram of the pulmonary arteries once patient is stable enough to undergo CT pulmonary angiogram. Agree with anticoagulation. If not able to undergo anticoagulation, then IVC filter would be considered.
--- NOTE | 2018-09-05 18:20 | Consultation ---
History of Present Illness Consult date: 09/05/18 Chief complaint: vent dependence - History of present illness History of present illness: 68 yo F with hx of sleep apnea, obesity, chronic pain on narcotics who presented to ER unresponsive. She c/o nausea and vomiting, diarrhea several days prior to presentation per . Patient is on vent, sedated and cannot provide histo ry. Apparently she was very sleepy the days following her GI illness and became unresponsive. She was brought to ER and intubated. She was being treated for an aspiration PNA and was eventually extubated. She remained extubated for several days and vomited again while on BIPAP. She was reintubated 3 days ago. Trach requested by pulm critical care. Past History Past Medical History: COPD Past Surgical History: Other (Neck and back surgery) Social history: , lives with family, full code Family history: other (unable to obtain, no family at bedside) Medications and Allergies Allergies Allergy/AdvReac Type Severity Reaction Status Date / Time No Known Allergies Allergy Unverified 08/15/18 16:49 Home Medications Medication Instructions Recorded Confirmed Last Taken Type Carvedilol 6.25 mg PO BID 08/15/18 08/15/18 Unknown History DULoxetine 60 mg PO QDAY 08/15/18 08/15/18 Unknown History Gabapentin 600 mg PO Q6HR PRN 08/15/18 08/15/18 Unknown History Methylphenidate 5 mg PO TID 08/15/18 08/15/18 Unknown History Morphabond ER 60 mg PO Q12HR 08/15/18 08/15/18 Unknown History Pravastatin Sodium 10 mg PO QDAY 08/15/18 08/15/18 Unknown History Tizanidine HCl 4 mg PO Q12HR 08/15/18 08/15/18 Unknown History oxyCODONE /ACETAMINOPHEN 7.5 - 325 mg PO Q8HR 08/15/18 08/15/18 Unknown History ALBUTEROL Inhaler(NF) 90 mcg IH TID 08/29/18 08/29/18 Unknown History Omeprazole-Bicarb 40-1,100 Cap 40 mg PO DAILY 08/29/18 08/29/18 Unknown History Active Meds: Active Medications Acetaminophen (Tylenol) 650 mg PO Q4H PRN PRN Reason: Pain MILD(1-3)/Fever >100.5/MONDRAGON Last Admin: 09/05/18 11:33 Dose: 650 mg Documented by: Albuterol (Proventil) 2.5 mg IH Q3HRT PRN PRN Reason: Shortness Of Breath Albuterol/Ipratropium (Duoneb *Not For Prn Use*) 1 ampul IH Q6HRT [facility] Last Admin: 09/05/18 16:25 Dose: 1 ampul Documented by: Lipase/Protease/Amylase (Alis Elizabeth 10,500 Unit) 1 each FEEDTUBE PRN PRN PRN Reason: For Clogged Feeding Tube Arformoterol Tartrate (Brovana Nebu) 15 mcg IH Q12HRT [facility] Last Admin: 09/05/18 08:14 Dose: 15 mcg Documented by: Budesonide (Pulmicort) 0.5 mg IH Q12HRT [facility] Last Admin: 09/05/18 08:14 Dose: 0.5 mg Documented by: Carvedilol (Coreg) 3.125 mg PO BID [facility] Last Admin: 09/05/18 10:05 Dose: 3.125 mg Documented by: Duloxetine HCl (Cymbalta) 60 mg PO QDAY [facility] Last Admin: 08/30/18 14:35 Dose: Not Given Documented by: Enoxaparin Sodium (Lovenox) 100 mg 1 mg/kg (100 mg) SUB-Q Q12HR [facility] Last Admin: 09/05/18 10:04 Dose: 100 mg Documented by: Famotidine (Pepcid) 20 mg PO BID [facility] Last Admin: 09/05/18 10:05 Dose: 20 mg Documented by: Fentanyl (Sublimaze) 50 mcg IV Q10MIN PRN PRN Reason: ANALGESIA Last Admin: 09/05/18 10:32 Dose: 50 mcg Documented by: Hydralazine HCl (Apresoline) 10 mg IV Q3H PRN Last Admin: 08/29/18 14:22 Dose: 10 mg Documented by: Hydralazine HCl (Apresoline) 25 mg PO Q8HR [facility] Last Admin: 09/05/18 14:59 Dose: 25 mg Documented by: Hydrophilic Ointment (Vaseline Lip Therapy) 1 applic TP Q2HR PRN PRN Reason: Dry Lips Last Admin: 09/01/18 09:07 Dose: 1 applic Documented by: Fentanyl Citrate (Fentanyl Drip Premix) 2,000 mcg in 100 mls @ 4.765 mls/hr IV TITR [facility]; Protocol Last Admin: 09/05/18 15:23 Dose: 4 mcg/kg/hr, 19.06 mls/hr Documented by: Micafungin Sodium 100 mg/ (Sodium Chloride) 100 mls @ 100 mls/hr IV QDAY [facility]; Protocol Last Admin: 09/05/18 14:52 Dose: 100 mls/hr Documented by: Vancomycin HCl 1,500 mg/ (Sodium Chloride) 530 mls @ 333.333 mls/hr IV Q12H [facility] Last Admin: 09/05/18 16:15 Dose: 333.333 mls/hr Documented by: Meropenem 1,000 mg/ Sodium (Chloride) 100 mls @ 100 mls/hr IV Q8H [facility]; Protocol Last Admin: 09/05/18 10:02 Dose: 100 mls/hr Documented by: Insulin Human Lispro (Humalog) 0 unit SUB-Q Q6HR [facility]; Protocol Last Admin: 09/05/18 14:50 Dose: Not Given Documented by: Metoclopramide HCl (Reglan) 5 mg IV Q6H PRN PRN Reason: Nausea And Vomiting Morphine Sulfate (Morphine) 1 mg IV Q4H PRN PRN Reason: Pain, Moderate (4-6) Last Admin: 09/05/18 09:26 Dose: 1 mg Documented by: Morphine Sulfate (Morphine) 30 mg PO Q6HR [facility] Last Admin: 09/05/18 14:58 Dose: 30 mg Documented by: Ondansetron HCl (Zofran) 4 mg IV Q8H PRN PRN Reason: Nausea And Vomiting Last Admin: 08/31/18 17:52 Dose: 4 mg Documented by: Quetiapine Fumarate (Seroquel) 200 mg PO BID [facility] Last Admin: 09/05/18 10:04 Dose: 200 mg Documented by: Simple Syrup (Simple Syrup) 15 ml FEEDTUBE PRN PRN PRN Reason: Hypoglycemia Simple Syrup (Simple Syrup) 30 ml FEEDTUBE PRN PRN PRN Reason: Hypoglycemia Sodium Bicarbonate (Sodium Bicarbonate) 325 mg FEEDTUBE PRN PRN PRN Reason: For Clogged Feeding Tube Sodium Chloride (Sodium Chloride Flush Syringe 10 Ml) 10 ml IV PRN PRN PRN Reason: LINE FLUSH Last Admin: 09/04/18 09:35 Dose: 10 ml Documented by: Review of Systems ROS unobtainable: due to endotracheal tube Exam Vital Signs Temp 98.1 F 08/15/18 17:30 Narrative exam: Gen: Intubated, sedated ENT: ETT and OGT in place. Trachea midline, no pulsatile mass or LAD CV: S1, S2+ resp: on vent Abd: soft, obese, NT Ext: edema Results - Labs 09/05/18 04:00 09/05/18 04:00 Abnormal lab results 09/03/18 09/04/18 09/05/18 Range/Units 10:24 18:27 03:46 RBC (3.65-5.03) M/mm3 Hgb (10.1-14.3) gm/dl Hct (30.3-42.9) % RDW (13.2-15.2) % Plt Count (140-440) K/mm3 Lymph # (1.2-5.4) K/mm3 Seg Neutrophils % (40.0-70.0) % POC ABG pH 7.282 L (7.35-7.45) POC ABG pCO2 57.3 H (35-45) POC ABG pO2 124 H (80-105) Chloride (98-107) mmol/L BUN (7-17) mg/dL Glucose (65-100) mg/dL POC Glucose 129 H (70-105) Calcium (8.4-10.2) mg/dL Magnesium (1.7-2.3) mg/dL Crossmatch See Detail 09/05/18 09/05/18 09/05/18 Range/Units 04:00 04:00 12:15 RBC 2.13 L (3.65-5.03) M/mm3 Hgb 6.4 L (10.1-14.3) gm/dl Hct 20.1 L (30.3-42.9) % RDW 19.9 H (13.2-15.2) % Plt Count 117 L (140-440) K/mm3 Lymph # 0.9 L (1.2-5.4) K/mm3 Seg Neutrophils % 81.7 H (40.0-70.0) % POC ABG pH (7.35-7.45) POC ABG pCO2 (35-45) POC ABG pO2 (80-105) Chloride 111.0 H (98-107) mmol/L BUN 20 H (7-17) mg/dL Glucose 130 H (65-100) mg/dL POC Glucose 143 H (70-105) Calcium 7.8 L (8.4-10.2) mg/dL Magnesium 1.60 L (1.7-2.3) mg/dL Crossmatch 09/05/18 Range/Units 17:24 RBC (3.65-5.03) M/mm3 Hgb (10.1-14.3) gm/dl Hct (30.3-42.9) % RDW (13.2-15.2) % Plt Count (140-440) K/mm3 Lymph # (1.2-5.4) K/mm3 Seg Neutrophils % (40.0-70.0) % POC ABG pH (7.35-7.45) POC ABG pCO2 (35-45) POC ABG pO2 (80-105) Chloride (98-107) mmol/L BUN (7-17) mg/dL Glucose (65-100) mg/dL POC Glucose 116 H (70-105) Calcium (8.4-10.2) mg/dL Magnesium (1.7-2.3) mg/dL Crossmatch Diabetes panel 09/05/18 Range/Units 04:00 Sodium 145 (137-145) mmol/L Potassium 3.6 (3.6-5.0) mmol/L Chloride 111.0 H (98-107) mmol/L Carbon Dioxide 26 (22-30) mmol/L BUN 20 H (7-17) mg/dL Creatinine 0.7 (0.7-1.2) mg/dL Glucose 130 H (65-100) mg/dL Calcium 7.8 L (8.4-10.2) mg/dL Calcium panel 09/05/18 Range/Units 04:00 Calcium 7.8 L (8.4-10.2) mg/dL Pituitary panel 09/05/18 Range/Units 04:00 Sodium 145 (137-145) mmol/L Potassium 3.6 (3.6-5.0) mmol/L Chloride 111.0 H (98-107) mmol/L Carbon Dioxide 26 (22-30) mmol/L BUN 20 H (7-17) mg/dL Creatinine 0.7 (0.7-1.2) mg/dL Glucose 130 H (65-100) mg/dL Calcium 7.8 L (8.4-10.2) mg/dL Adrenal panel 09/05/18 Range/Units 04:00 Sodium 145 (137-145) mmol/L Potassium 3.6 (3.6-5.0) mmol/L Chloride 111.0 H (98-107) mmol/L Carbon Dioxide 26 (22-30) mmol/L BUN 20 H (7-17) mg/dL Creatinine 0.7 (0.7-1.2) mg/dL Glucose 130 H (65-100) mg/dL Calcium 7.8 L (8.4-10.2) mg/dL - Imaging Chest x-ray: report reviewed, image reviewed Assessment and Plan 68 yo F with VDRF, aspiration PNA, thee bacteremia Plan: 1. Currently patient is on A/C mode, PEEP of 14 and FIO2 of 80%. Will plan tracheostomy once PEEP can be weaned 2. Discussed recommendation for trach and possibly PEG tube with at the bedside. All procedure risks, benefits, and alternatives were discussed and he is agreeable to proceed. All questions answered 3. vent management per ICU 4. c/w TF 5. IV abx per ID Thank you, please call with questions and concerns.
--- NOTE | 2018-09-05 19:18 | Progress Note ---
Assessment and Plan - Patient Problems (1) Acute respiratory failure Current Visit: Yes Status: Acute Plan to address problem: Continue supportive management of recurrent acute respiratory failure. (2) Dilated cardiomyopathy Current Visit: Yes Status: Acute Plan to address problem: Medical therapy as tolerated for dilated cardiomyopathy of uncertain chronicity. Subjective Date of service: 09/05/18 Principal diagnosis: Acute hypoxemic hypercapnic Resp failure; AE-COPD; Acute kidney injury Interval history: Patient is unresponsive, on the vent. Sinus rhythm on patient monitor, stable blood pressure. Objective Vital Signs Temp Pulse Pulse Pulse Resp Resp BP 09/05/18 17:21 100.3 F H 09/05/18 17:15 78 10 L 113/45 09/05/18 17:00 83 12 107/49 09/05/18 16:45 79 25 H 107/55 09/05/18 16:38 75 30 H 09/05/18 16:30 78 30 H 108/47 09/05/18 16:25 80 31 H 09/05/18 16:23 78 108/47 09/05/18 16:15 81 27 H 108/47 09/05/18 16:00 79 92 H 9 L 110/55 09/05/18 15:58 32 H 09/05/18 15:45 81 17 110/55 09/05/18 15:30 87 9 L 107/55 09/05/18 15:15 82 13 102/54 09/05/18 15:00 83 11 L 106/51 09/05/18 14:59 83 102/53 09/05/18 14:58 35 H 09/05/18 14:45 84 22 102/52 09/05/18 14:30 90 12 103/58 09/05/18 14:15 86 11 L 107/51 09/05/18 14:00 96 H 12 97/52 09/05/18 13:54 101.0 F H 93 H 32 H 99/46 09/05/18 13:45 90 13 99/46 09/05/18 13:30 89 22 100/50 09/05/18 13:24 101.3 F H 94 H 90 H 107/54 09/05/18 13:15 88 16 107/54 09/05/18 13:00 89 14 104/48 09/05/18 12:54 101.3 F H 91 H 35 H 104/48 09/05/18 12:46 95 H 18 94/42 09/05/18 12:30 95 H 21 98/35 09/05/18 12:24 101.4 F H 86 34 H 106/52 09/05/18 12:15 101 H 17 90/37 09/05/18 12:00 101.5 F H 91 H 98 H 14 93/37 09/05/18 11:54 100.7 F H 93 H 36 H 97/43 09/05/18 11:50 107 H 18 91/44 09/05/18 11:40 92 H 17 98/44 09/05/18 11:39 101.5 F H 99 H 37 H 91/44 09/05/18 11:30 91 H 17 98/44 09/05/18 11:27 95 H 96/47 09/05/18 11:15 94 H 21 96/47 09/05/18 11:00 100 H 19 97/41 09/05/18 10:46 101 H 19 94/39 09/05/18 10:30 119 H 38 H 108/53 09/05/18 10:15 105 H 25 H 123/63 09/05/18 10:05 106 H 133/63 09/05/18 10:00 103 H 22 133/63 09/05/18 09:45 102 H 25 H 127/63 09/05/18 09:30 105 H 27 H 120/71 09/05/18 09:26 39 H 09/05/18 09:16 107 H 23 117/66 09/05/18 09:00 104 H 23 101/46 09/05/18 08:45 93 H 12 101/46 09/05/18 08:30 88 10 L 111/48 09/05/18 08:29 91 H 116/52 09/05/18 08:27 84 30 H 09/05/18 08:15 89 89 12 34 H 116/52 09/05/18 08:11 94 H 117/50 09/05/18 08:00 99.4 F 86 96 H 14 117/50 09/05/18 07:45 89 12 128/62 09/05/18 07:30 87 12 116/54 09/05/18 07:15 89 12 121/48 09/05/18 07:00 88 11 L 117/52 09/05/18 06:45 87 16 112/53 09/05/18 06:30 89 14 117/58 09/05/18 06:29 97 H 108/51 09/05/18 06:15 86 9 L 108/51 09/05/18 06:00 81 11 L 112/53 09/05/18 05:45 80 10 L 112/53 09/05/18 05:30 84 13 117/51 09/05/18 05:16 86 12 108/52 09/05/18 05:00 88 17 108/54 09/05/18 04:46 88 17 117/45 09/05/18 04:30 90 21 120/48 09/05/18 04:15 81 12 101/45 09/05/18 04:00 98.8 F 81 98 H 18 106/48 09/05/18 03:45 80 10 L 101/45 09/05/18 03:35 81 109/46 09/05/18 03:30 80 16 109/46 09/05/18 03:15 81 21 103/48 09/05/18 03:00 81 25 H 107/45 09/05/18 02:45 81 16 108/46 09/05/18 02:30 82 16 99/47 09/05/18 02:23 85 31 H 09/05/18 02:15 81 18 102/46 09/05/18 02:08 83 31 H 09/05/18 02:00 83 13 106/49 09/05/18 01:45 81 15 108/48 09/05/18 01:30 82 15 97/42 09/05/18 01:15 82 18 100/52 09/05/18 01:00 83 18 108/54 09/05/18 00:45 84 13 108/54 09/05/18 00:30 84 11 L 98/42 09/05/18 00:15 82 24 109/49 09/05/18 00:00 98.8 F 81 99 H 10 L 113/46 09/04/18 23:48 80 11 L 113/46 09/04/18 23:45 80 13 113/46 09/04/18 23:44 83 15 116/50 09/04/18 23:30 83 14 116/50 09/04/18 23:24 84 108/51 09/04/18 23:15 84 13 102/54 09/04/18 23:00 83 11 L 108/51 09/04/18 22:45 98.8 F 81 12 98/52 09/04/18 22:30 83 12 99/49 09/04/18 22:16 87 12 92/48 09/04/18 22:00 83 11 L 97/48 09/04/18 21:49 84 111/43 09/04/18 21:48 89 111/43 09/04/18 21:45 78 14 111/43 09/04/18 21:30 85 14 111/51 09/04/18 21:15 89 19 103/48 09/04/18 21:00 87 13 104/53 09/04/18 20:45 86 15 112/55 09/04/18 20:30 98 H 15 102/50 09/04/18 20:15 87 18 102/50 09/04/18 20:00 99.9 F H 89 98 H 13 105/56 09/04/18 19:45 87 14 105/53 09/04/18 19:40 99 H 37 H 09/04/18 19:30 88 15 104/51 09/04/18 19:25 97 H 37 H 09/04/18 19:20 97 H 98/52 Pulse Ox 09/05/18 17:21 09/05/18 17:15 95 09/05/18 17:00 96 09/05/18 16:45 96 09/05/18 16:38 09/05/18 16:30 100 09/05/18 16:25 09/05/18 16:23 97 09/05/18 16:15 99 09/05/18 16:00 97 09/05/18 15:58 09/05/18 15:45 98 09/05/18 15:30 97 09/05/18 15:15 97 09/05/18 15:00 98 09/05/18 14:59 09/05/18 14:58 09/05/18 14:45 97 09/05/18 14:30 98 09/05/18 14:15 98 09/05/18 14:00 98 09/05/18 13:54 98 09/05/18 13:45 97 09/05/18 13:30 96 09/05/18 13:24 96 09/05/18 13:15 97 09/05/18 13:00 97 09/05/18 12:54 96 09/05/18 12:46 97 09/05/18 12:30 96 09/05/18 12:24 97 09/05/18 12:15 97 09/05/18 12:00 97 09/05/18 11:54 97 09/05/18 11:50 97 09/05/18 11:40 97 09/05/18 11:39 96 09/05/18 11:30 98 09/05/18 11:27 98 09/05/18 11:15 97 09/05/18 11:00 99 09/05/18 10:46 96 09/05/18 10:30 82 L 09/05/18 10:15 94 09/05/18 10:05 09/05/18 10:00 95 09/05/18 09:45 92 09/05/18 09:30 89 09/05/18 09:26 09/05/18 09:16 92 09/05/18 09:00 94 09/05/18 08:45 99 09/05/18 08:30 100 09/05/18 08:29 100 09/05/18 08:27 09/05/18 08:15 100 09/05/18 08:11 100 09/05/18 08:00 96 09/05/18 07:45 99 09/05/18 07:30 100 09/05/18 07:15 100 09/05/18 07:00 100 09/05/18 06:45 100 09/05/18 06:30 100 09/05/18 06:29 09/05/18 06:15 100 09/05/18 06:00 100 09/05/18 05:45 100 09/05/18 05:30 100 09/05/18 05:16 100 09/05/18 05:00 100 09/05/18 04:46 100 09/05/18 04:30 98 09/05/18 04:15 98 09/05/18 04:00 99 09/05/18 03:45 99 09/05/18 03:35 98 09/05/18 03:30 100 09/05/18 03:15 100 09/05/18 03:00 100 09/05/18 02:45 100 09/05/18 02:30 100 09/05/18 02:23 09/05/18 02:15 100 09/05/18 02:08 09/05/18 02:00 98 09/05/18 01:45 100 09/05/18 01:30 99 09/05/18 01:15 100 09/05/18 01:00 99 09/05/18 00:45 100 09/05/18 00:30 100 09/05/18 00:15 100 09/05/18 00:00 100 09/04/18 23:48 100 09/04/18 23:45 100 09/04/18 23:44 100 09/04/18 23:30 99 09/04/18 23:24 100 09/04/18 23:15 100 09/04/18 23:00 100 09/04/18 22:45 99 09/04/18 22:30 99 09/04/18 22:16 99 09/04/18 22:00 100 09/04/18 21:49 09/04/18 21:48 09/04/18 21:45 100 09/04/18 21:30 100 09/04/18 21:15 100 09/04/18 21:00 100 09/04/18 20:45 99 09/04/18 20:30 98 09/04/18 20:15 100 09/04/18 20:00 100 09/04/18 19:45 100 09/04/18 19:40 09/04/18 19:30 100 09/04/18 19:25 09/04/18 19:20 97 - Physical Examination General: Other (unresponsive, on the vent) HEENT: Positive: PERRL, Other (ET tube in place) Neck: Positive: neck supple, trachea midline Cardiac: Positive: Reg Rate and Rhythm Lungs: Positive: Decreased Breath Sounds Neuro: Positive: Other (unresponsive, on the vent) Abdomen: Positive: Unremarkable, Soft, Active Bowel Sounds Skin: Positive: Clear Extremities: Absent: edema - Labs and Meds CBC 09/05/18 Range/Units 04:00 WBC 6.3 (4.5-11.0) K/mm3 RBC 2.13 L (3.65-5.03) M/mm3 Hgb 6.4 L (10.1-14.3) gm/dl Hct 20.1 L (30.3-42.9) % Plt Count 117 L (140-440) K/mm3 Lymph # 0.9 L (1.2-5.4) K/mm3 Nye # 0.3 (0.0-0.8) K/mm3 Eos # 0.0 (0.0-0.4) K/mm3 Baso # 0.0 (0.0-0.1) K/mm3 Comprehensive Metabolic Panel 09/05/18 Range/Units 04:00 Sodium 145 (137-145) mmol/L Potassium 3.6 (3.6-5.0) mmol/L Chloride 111.0 H (98-107) mmol/L Carbon Dioxide 26 (22-30) mmol/L BUN 20 H (7-17) mg/dL Creatinine 0.7 (0.7-1.2) mg/dL Glucose 130 H (65-100) mg/dL Calcium 7.8 L (8.4-10.2) mg/dL - Allied health notes Allied health notes reviewed: RT
--- NOTE | 2018-09-05 19:58 | Vascular Lab Report ---
PROCEDURE: VL VENOUS DUPLEX LE BILAT TECHNIQUE: Grayscale, color flow and Doppler waveform imaging of the deep venous structures of the l ower extremities bilaterally. HISTORY: lower extremity swelling, left more than right sepsis, altered mental status, acute renal fa ilure, pneumonia. COMPARISONS: Venous duplex left lower extremity dated September 01, 2018. FINDINGS: There is demonstration of normal compression and normal phasic flow of the deep venous structures of the lower extremities bilaterally from the common femoral veins to the popliteal veins. There is demonstration of incomplete compression and lack of flow in the posterior tibial and peronea l veins bilaterally consistent with thrombus. IMPRESSION: 1. Evidence of venous thrombosis in the posterior tibial and peroneal veins bilaterally. Similar find ings were demonstrated in the left lower extremity on the ultrasound dated September 01, 2018. This document is electronically signed by Kristin Schwartz MD., September 05 2018 07:56:01 PM ET
[2018-09-06] MEDS: MORPHINE PO SCH ×2 (00:11→06:05)
[2018-09-06] MEDS: HumaLOG SUB-Q SCH ×4 (00:24→19:20)
[2018-09-06] MEDS: DUONEB *Not for PRN Use IH SCH ×4 (01:00→19:56)
[2018-09-06] MEDS: fentaNYL DRIP Premix 2,000 MCG/100 ML BAG IV SCH ×4 (02:37→21:52)
[2018-09-06] MEDS: MERREM 1,000 MG in NACL 0.9% 100 ML IV SCH ×3 (03:12→19:13)
[2018-09-06 04:57] LABS: Basophils % (Auto) 0.1 % (0.0-1.8); Hemoglobin 7.4 gm/dl (10.1-14.3); Lymphocytes % (Auto) 16.1 % (13.4-35.0); Mean Corpuscular HGB Conc 32 % (30-34); Mean Corpuscular Volume 94 fl (79-97); Monocytes # (Auto) 0.4 K/mm3 (0.0-0.8); Monocytes % (Auto) 5.8 % (0.0-7.3); Platelet Count 99 K/mm3 (140-440); Red Blood Count 2.45 M/mm3 (3.65-5.03); Red Cell Distribution Width 18.1 % (13.2-15.2)
[2018-09-06 05:18] LABS: BUN/Creatinine Ratio 27; Blood Urea Nitrogen 24 mg/dL (7-17); Calcium 8.1 mg/dL (8.4-10.2); Hemolysis Index 4
[2018-09-06] MEDS: VANCOMYCIN 1,500 MG in NACL 0.9% 500 ML 500 ML IV SCH (06:05)
[2018-09-06] MEDS: APRESOLINE PO SCH ×3 (06:48→21:50)
[2018-09-06] MEDS: PULMICORT IH SCH ×2 (07:58→19:56)
[2018-09-06] MEDS: BROVANA NEBU IH SCH ×2 (07:59→19:56)
[2018-09-06] MEDS: SUBLIMAZE IV PRN (08:20)
--- NOTE | 2018-09-06 08:49 | Progress Note ---
Assessment and Plan Assessment and plan: --Thrombocytopenia: Patient is on Lovenox, anemia requiring blood transfusion, LE DVT Consults hematology. --Anemia; received total 3 units of PRBC hemoglobin 7.4 Stool for occult blood x 2 negative Consider GI evaluation if significant drop --Febrile illness; persistent low-grade fever Already on antibiotics, follow cultures, chest x-ray; airspace disease, ID following --Hypomagnesemia; Hypernatremia; resolved, --Acute hypoxic hypercapnic respiratory failure; extubated 08/29/18 Re Intubated 09/02/18 secondary to acute respiratory failure .n vent Status post bronchoscopy, findings reviewed, BAL sent for histopathology nebulizers, IV antibiotics, pulmonary critical following Wean as tolerated and extubated --Left lower extremity DVT; anticoagulation with Lovenox CTA chest to rule out PE when stable --Sepsis; aspiration pneumonia ; micafungin, meropenem and Vanco per ID --Hypertension; continue current antihypertensives --Severe malnutrition/hypoalbuminemia; Dietitian following --Acute kidney injury; probably secondary to ATN, Resolved, --Acute systolic congestive heart failure; EF 25-30%, Cardio following --Elevated Transaminases; resolved --DVT prophylaxis; on full dose Lovenox Consults and recommendations noted and appreciated Plan of care reviewed with the patient's nurse The high probability of a clinically significant, sudden or life threatening deterioration of the [respiratory, cardiology, ID, renal and metabolic] system(s) required my full and direct attention, intervention and personal management. The aggregate critical care time was [32] minutes. This time is in addition to time spent performing reported procedures but includes the following: [x] Data Review and interpretation [x] Patient assessment and monitoring of vital signs [x] Documentation [x] Medication orders and management History Interval history: Patient seen and examined medical records reviewed Patient remains intubated on ventilatory support Unable to wean, vent dependent, may need to check and PEG Vital signs reviewed Hospitalist Physical - Constitutional Vitals: Temp Pulse Resp BP Pulse Ox 99.9 F H 104 H 37 H 112/48 100 09/06/18 08:00 09/06/18 08:17 09/06/18 08:17 09/06/18 07:50 09/06/18 07:50 General appearance: Present: mild distress, well-nourished, obese, other (on vent) - EENT Eyes: Present: PERRL, EOM intact - Neck Neck: Present: supple, normal ROM - Respiratory Respiratory effort: normal Respiratory: bilateral: diminished, rhonchi, negative: rales, wheezing - Cardiovascular Rhythm: regular Heart Sounds: Present: S1 & S2 - Extremities Extremities: no ischemia Extremity abnormal: edema - Abdominal General gastrointestinal: soft, non-tender, non-distended, normal bowel sounds - Integumentary Integumentary: Present: clear, warm - Psychiatric Psychiatric: other (noncommunicative) - Neurologic Neurologic: other (intubated on vent) Results - Labs CBC & Chem 7: 09/06/18 04:20 09/06/18 04:20 Labs: Laboratory Last Values WBC 6.1 K/mm3 (4.5-11.0) 09/06/18 04:20 RBC 2.45 M/mm3 (3.65-5.03) L 09/06/18 04:20 Hgb 7.4 gm/dl (10.1-14.3) L 09/06/18 04:20 Hct 23.0 % (30.3-42.9) L 09/06/18 04:20 MCV 94 fl (79-97) 09/06/18 04:20 MCH 30 pg (28-32) 09/06/18 04:20 MCHC 32 % (30-34) 09/06/18 04:20 RDW 18.1 % (13.2-15.2) H 09/06/18 04:20 Plt Count 99 K/mm3 (140-440) L 09/06/18 04:20 Lymph % (Auto) 16.1 % (13.4-35.0) 09/06/18 04:20 Barnes % (Auto) 5.8 % (0.0-7.3) 09/06/18 04:20 Eos % (Auto) 0.0 % (0.0-4.3) 09/06/18 04:20 Baso % (Auto) 0.1 % (0.0-1.8) 09/06/18 04:20 Lymph # 1.0 K/mm3 (1.2-5.4) L 09/06/18 04:20 Barnes # 0.4 K/mm3 (0.0-0.8) 09/06/18 04:20 Eos # 0.0 K/mm3 (0.0-0.4) 09/06/18 04:20 Baso # 0.0 K/mm3 (0.0-0.1) 09/06/18 04:20 Add Manual Diff Complete 09/03/18 04:25 Total Counted 100 09/03/18 04:25 Seg Neutrophils % 78.0 % (40.0-70.0) H 09/06/18 04:20 Seg Neuts % (Manual) 90.0 % (40.0-70.0) H 09/03/18 04:25 Band Neutrophils % 1.0 % 09/03/18 04:25 Lymphocytes % (Manual) 5.0 % (13.4-35.0) L 09/03/18 04:25 Reactive Lymphs % (Man) 0 % 09/03/18 04:25 Monocytes % (Manual) 3.0 % (0.0-7.3) 09/03/18 04:25 Eosinophils % (Manual) 0 % (0.0-4.3) 09/03/18 04:25 Basophils % (Manual) 0 % (0.0-1.8) 09/03/18 04:25 Metamyelocytes % 0 % 09/03/18 04:25 Myelocytes % 1.0 % 09/03/18 04:25 Promyelocytes % 0 % 09/03/18 04:25 Blast Cells % 0 % 09/03/18 04:25 Nucleated RBC % Not Reportable 09/03/18 04:25 Seg Neutrophils # 4.8 K/mm3 (1.8-7.7) 09/06/18 04:20 Seg Neutrophils # Man 8.7 K/mm3 (1.8-7.7) H 09/03/18 04:25 Band Neutrophils # 0.1 K/mm3 09/03/18 04:25 Abs Lymphs (Manual) 3262 cells/uL (850-3900) 08/19/18 14:32 Lymphocytes # (Manual) 0.5 K/mm3 (1.2-5.4) L 09/03/18 04:25 Abs React Lymphs (Man) 0.0 K/mm3 09/03/18 04:25 Monocytes # (Manual) 0.3 K/mm3 (0.0-0.8) 09/03/18 04:25 Eosinophils # (Manual) 0.0 K/mm3 (0.0-0.4) 09/03/18 04:25 Basophils # (Manual) 0.0 K/mm3 (0.0-0.1) 09/03/18 04:25 Metamyelocytes # 0.0 K/mm3 09/03/18 04:25 Myelocytes # 0.1 K/mm3 09/03/18 04:25 Promyelocytes # 0.0 K/mm3 09/03/18 04:25 Blast Cells # 0.0 K/mm3 09/03/18 04:25 WBC Morphology Not Reportable 09/03/18 04:25 Hypersegmented Neuts Not Reportable 09/03/18 04:25 Hyposegmented Neuts Not Reportable 09/03/18 04:25 Hypogranular Neuts Not Reportable 09/03/18 04:25 Smudge Cells Not Reportable 09/03/18 04:25 Toxic Granulation Not Reportable 09/03/18 04:25 Toxic Vacuolation Not Reportable 09/03/18 04:25 Dohle Bodies Not Reportable 09/03/18 04:25 Pelger-Huet Anomaly Not Reportable 09/03/18 04:25 Rosy Rods Not Reportable 09/03/18 04:25 Platelet Estimate Consistent w auto 09/03/18 04:25 Clumped Platelets Not Reportable 09/03/18 04:25 Plt Clumps, EDTA Not Reportable 09/03/18 04:25 Large Platelets Not Reportable 09/03/18 04:25 Giant Platelets Not Reportable 09/03/18 04:25 Platelet Satelliting Not Reportable 09/03/18 04:25 Plt Morphology Comment Not Reportable 09/03/18 04:25 RBC Morphology Not Reportable 09/03/18 04:25 Dimorphic RBCs Not Reportable 09/03/18 04:25 Polychromasia Not Reportable 09/03/18 04:25 Hypochromasia 1+ 09/03/18 04:25 Poikilocytosis 1+ 09/03/18 04:25 Anisocytosis 1+ 09/03/18 04:25 Microcytosis Not Reportable 09/03/18 04:25 Macrocytosis Not Reportable 09/03/18 04:25 Spherocytes Not Reportable 09/03/18 04:25 Pappenheimer Bodies Not Reportable 09/03/18 04:25 Sickle Cells Not Reportable 09/03/18 04:25 Target Cells Not Reportable 09/03/18 04:25 Tear Drop Cells Not Reportable 09/03/18 04:25 Ovalocytes Not Reportable 09/03/18 04:25 Helmet Cells Not Reportable 09/03/18 04:25 Hernandez-Heflin Bodies Not Reportable 09/03/18 04:25 Downey Rings Not Reportable 09/03/18 04:25 Bulpitt Cells Not Reportable 09/03/18 04:25 Bite Cells Not Reportable 09/03/18 04:25 Crenated Cell Not Reportable 09/03/18 04:25 Elliptocytes Not Reportable 09/03/18 04:25 Acanthocytes (Spur) Not Reportable 09/03/18 04:25 Rouleaux Not Reportable 09/03/18 04:25 Hemoglobin C Crystals Not Reportable 09/03/18 04:25 Schistocytes Not Reportable 09/03/18 04:25 Malaria parasites Not Reportable 09/03/18 04:25 Ceasar Bodies Not Reportable 09/03/18 04:25 Hem Pathologist Commnt No 09/03/18 04:25 D-Dimer 2768.33 ng/mlDDU (0-234) H 08/15/18 18:31 Heparin Anti-Xa, Unfract Negative (Negative) 08/22/18 15:29 POC ABG pH 7.303 (7.35-7.45) L 09/06/18 03:33 POC ABG pCO2 49.2 (35-45) H 09/06/18 03:33 POC ABG pO2 73 (80-105) L 09/06/18 03:33 POC ABG HCO3 24.4 (22-26 mml/L) 09/06/18 03:33 POC ABG Total CO2 26 (23-27mmol/L) 09/06/18 03:33 POC ABG O2 Sat 93 09/06/18 03:33 POC ABG Base Excess -2 ((-2) - (+3)mmol/L) 09/06/18 03:33 VBG pH 7.187 (7.320-7.420) L* 08/15/18 18:19 FiO2 70 % 04/09/19 03:33 Sodium 144 mmol/L (137-145) 09/06/18 04:20 Potassium 3.7 mmol/L (3.6-5.0) 09/06/18 04:20 Chloride 109.3 mmol/L (98-107) H 09/06/18 04:20 Carbon Dioxide 26 mmol/L (22-30) 09/06/18 04:20 Anion Gap 12 mmol/L 09/06/18 04:20 BUN 24 mg/dL (7-17) H 09/06/18 04:20 Creatinine 0.9 mg/dL (0.7-1.2) 09/06/18 04:20 Estimated GFR > 60 ml/min 09/06/18 04:20 BUN/Creatinine Ratio 27 % 09/06/18 04:20 Glucose 108 mg/dL (65-100) H 09/06/18 04:20 POC Glucose 124 (70-105) H 09/06/18 04:55 Hemoglobin A1c 6.4 % (4-6) H 08/15/18 23:09 Lactic Acid 1.20 mmol/L (0.7-2.0) 08/22/18 15:29 Calcium 8.1 mg/dL (8.4-10.2) L 09/06/18 04:20 Phosphorus 3.00 mg/dL (2.5-4.5) 09/06/18 04:20 Magnesium 1.80 mg/dL (1.7-2.3) 09/06/18 04:20 Total Bilirubin 0.40 mg/dL (0.1-1.2) 09/03/18 04:25 AST 33 units/L (5-40) 09/03/18 04:25 ALT 15 units/L (7-56) 09/03/18 04:25 Alkaline Phosphatase 95 units/L (35-129) 09/03/18 04:25 Troponin T 0.317 ng/mL (0.00-0.029) H* D 08/18/18 13:39 C-Reactive Protein 5.00 mg/dL (0.00-1.30) H 08/25/18 05:20 Total Protein 6.0 g/dL (6.3-8.2) L 09/03/18 04:25 Albumin 2.4 g/dL (3.9-5) L 09/03/18 04:25 Albumin/Globulin Ratio 0.7 % 09/03/18 04:25 Triglycerides 197 mg/dL (2-149) H 08/22/18 06:45 Cholesterol 87 mg/dL (50-199) 08/15/18 18:31 LDL Cholesterol Direct 4 mg/dL (50-130) L 08/15/18 18:31 HDL Cholesterol 10 mg/dL (40-59) L 08/15/18 18:31 Cholesterol/HDL Ratio 8.70 % 08/15/18 18:31 Serotonin Release Assay See scanned results 08/22/18 15:29 Total Cortisol 21.4 mcg/dL () 08/25/18 08:52 Urine Color Rosemarie (Yellow) 08/15/18 19:15 Urine Turbidity Cloudy (Clear) 08/15/18 19:15 Urine pH 5.0 (5.0-7.0) 08/15/18 19:15 Ur Specific [place] 1.025 (1.003-1.030) 08/15/18 19:15 Urine Protein 30 mg/dl mg/dL (Negative) 08/15/18 19:15 Urine Glucose (UA) Neg mg/dL (Negative) 08/15/18 19:15 Urine Ketones Neg mg/dL (Negative) 08/15/18 19:15 Urine Blood Mod (Negative) 08/15/18 19:15 Urine Nitrite Neg (Negative) 08/15/18 19:15 Urine Bilirubin Neg (Negative) 08/15/18 19:15 Urine Urobilinogen 2.0 mg/dL (<2.0) 08/15/18 19:15 Ur Leukocyte Esterase Mod (Negative) 08/15/18 19:15 Urine WBC (Auto) 17.0 /HPF (0.0-6.0) H 08/15/18 19:15 Urine RBC (Auto) 5.0 /HPF (0.0-6.0) 08/15/18 19:15 Urine WBC Clumps 2+ /HPF 08/15/18 19:15 Amorphous Crystals 1+ 08/15/18 19:15 Hyaline Casts 54 /LPF 08/15/18 19:15 Granular Casts 14 /LPF 08/15/18 19:15 Urine Mucus Few /HPF 08/15/18 19:15 Vancomycin Trough 17.4 ug/mL (5.0-20.0) 09/04/18 15:42 Salicylates < 0.3 mg/dL (2.8-20.0) L 08/15/18 19:14 Urine Opiates Screen Presumptive positive 08/15/18 19:15 Urine Methadone Screen Presumptive negative 08/15/18 19:15 Acetaminophen < 5.0 ug/mL (10.0-30.0) L 08/15/18 19:14 Ur Barbiturates Screen Presumptive negative 08/15/18 19:15 Ur Phencyclidine Scrn Presumptive negative 08/15/18 19:15 Ur Amphetamines Screen Presumptive negative 08/15/18 19:15 U Benzodiazepines Scrn Presumptive negative 08/15/18 19:15 Urine Cocaine Screen Presumptive negative 08/15/18 19:15 U Marijuana (THC) Screen Presumptive negative 08/15/18 19:15 Drugs of Abuse Note Disclamer 08/15/18 19:15 Heparin-induced Plt Ab Negative (Negative) 08/22/18 15:29 UF Heparin High Dose 0 % Release 08/22/18 15:29 NAZIA UFH Low Dose 0.1 0 % Release 08/22/18 15:29 NAZIA UFH Low Dose 0.5 0 % Release 08/22/18 15:29 Lymph Enumerat CD4/CD8 1.98 (0.86-5.00) 08/19/18 14:32 % CD3 Cells 44 % (57-85) L 08/19/18 14:32 Absolute CD3 Count 1451 cells/uL (840-3060) 08/19/18 14:32 % CD4 Cells 30 % (30-61) 08/19/18 14:32 Absolute CD4 Count 1004 cells/uL (490-1740) 08/19/18 14:32 % CD8 Cells 15 % (12-42) 08/19/18 14:32 Absolute CD8 Count 508 cells/uL (180-1170) 08/19/18 14:32 % CD19 Cells 41 % (6-29) H 08/19/18 14:32 Absolute CD19 Count 1290 cells/uL (110-660) H 08/19/18 14:32 C. difficile Toxin A&B Negative (Negative) 08/19/18 14:00 HIV 1&2 Antibody Rapid Non react (Non React) 08/18/18 13:39 HIV P24 Antigen Non react (Non React) 08/18/18 13:39 Miscellaneous Test Flexitest 1 08/30/18 10:00 Blood Type O POSITIVE 09/03/18 10:24 Antibody Screen Negative 09/03/18 10:24 Crossmatch See Detail 09/03/18 10:24 Active Medications - Current Medications Current Medications: Generic Name Dose Route Start Last Admin Trade Name Freq PRN Reason Stop Dose Admin Acetaminophen 650 mg 08/15/18 22:12 09/05/18 11:33 Tylenol PO 650 mg Q4H PRN Administration Pain MILD(1-3)/Fever >100.5/MONDRAGON Albuterol 2.5 mg 08/17/18 17:00 Proventil IH Q3HRT PRN Shortness Of Breath Albuterol/Ipratropium 1 ampul 08/20/18 14:00 09/06/18 07:59 Duoneb *Not For Prn Use* IH Not Given Q6HRT LAMAR Lipase/Protease/Amylase 1 each 09/02/18 10:40 Pancreazrashad Elizabeth 10,500 Unit FEEDTUBE PRN PRN For Clogged Feeding Tube Arformoterol Tartrate 15 mcg 08/18/18 20:00 09/06/18 07:59 Brovana Nebu IH 15 mcg Q12HRT LAMAR Administration Budesonide 0.5 mg 08/18/18 20:00 09/06/18 07:58 Pulmicort IH 0.5 mg Q12HRT LAMAR Administration Carvedilol 3.125 mg 08/26/18 15:19 09/05/18 21:20 Coreg PO 3.125 mg BID LAMAR Administration Duloxetine HCl 60 mg 08/16/18 10:00 08/30/18 14:35 Cymbalta PO Not Given QDAY LAMAR Enoxaparin Sodium 100 mg 09/01/18 22:00 09/05/18 21:18 Lovenox 1 mg/kg (100 mg) 100 mg SUB-Q Administration Q12HR LAMAR Famotidine 20 mg 09/05/18 10:00 09/05/18 21:20 Pepcid PO 20 mg BID LAMAR Administration Fentanyl 50 mcg 09/02/18 10:17 09/06/18 08:20 Sublimaze IV 50 mcg Q10MIN PRN Administration ANALGESIA Hydralazine HCl 10 mg 08/19/18 13:59 08/29/18 14:22 Apresoline IV 10 mg Q3H PRN Administration Hydralazine HCl 25 mg 09/01/18 14:00 09/06/18 06:48 Apresoline PO 25 mg Q8HR LAMAR Administration Hydrophilic Ointment 1 applic 08/15/18 21:55 09/01/18 09:07 Vaseline Lip Therapy TP 1 applic Q2HR PRN Administration Dry Lips Fentanyl Citrate 2,000 mcg in 100 mls @ 4.765 mls/hr 09/02/18 11:00 09/06/18 08:18 Fentanyl Drip Premix IV 4 mcg/kg/hr TITR LAMAR 19.06 mls/hr Administration Protocol 1 MCG/KG/HR Micafungin Sodium 100 mg/ 100 mls @ 100 mls/hr 09/02/18 15:00 09/05/18 14:52 Sodium Chloride IV 100 mls/hr QDAY LAMAR Administration Protocol Vancomycin HCl 1,500 mg/ 530 mls @ 333.333 mls/hr 09/03/18 04:00 09/06/18 06:05 Sodium Chloride IV 333.333 mls/hr Q12H LAMAR Administration Meropenem 1,000 mg/ Sodium 100 mls @ 100 mls/hr 09/04/18 18:00 09/06/18 03:12 Chloride IV 100 mls/hr Q8H LAMAR Administration Protocol Insulin Human Lispro 0 unit 09/04/18 18:00 09/06/18 06:16 Humalog SUB-Q Not Given Q6HR [facility] Protocol Metoclopramide HCl 5 mg 08/15/18 22:50 Reglan IV Q6H PRN Nausea And Vomiting Morphine Sulfate 1 mg 08/29/18 15:29 09/05/18 09:26 Morphine IV 1 mg Q4H PRN Administration Pain, Moderate (4-6) Morphine Sulfate 30 mg 09/05/18 14:00 09/06/18 06:05 Morphine PO 30 mg Q6HR LAMAR Administration Ondansetron HCl 4 mg 08/15/18 22:12 08/31/18 17:52 Zofran IV 4 mg Q8H PRN Administration Nausea And Vomiting Quetiapine Fumarate 200 mg 09/04/18 15:00 09/05/18 21:20 Seroquel PO 200 mg BID LAMAR Administration Simple Syrup 15 ml 09/02/18 11:24 Simple Syrup FEEDTUBE PRN PRN Hypoglycemia Simple Syrup 30 ml 09/02/18 11:24 Simple Syrup FEEDTUBE PRN PRN Hypoglycemia Sodium Bicarbonate 325 mg 09/02/18 10:40 Sodium Bicarbonate FEEDTUBE PRN PRN For Clogged Feeding Tube Sodium Chloride 10 ml 08/15/18 22:12 09/04/18 09:35 Sodium Chloride Flush Syringe 10 Ml IV 10 ml PRN PRN Administration LINE FLUSH Nutrition/Malnutrition Assess - Dietary Evaluation Nutrition/Malnutrition Findings: Nutrition Notes Start: 08/17/18 13:57 Freq: Status: Active Protocol: Document 09/04/18 12:05 MADAY (Rec: 09/04/18 12:10 MADAY [email or web address]) Nutrition Notes Initial or Follow up Reassessment Current Diagnosis Acute Kidney Injury,COPD, Diabetes,Sepsis,Hypertension, Respiratory Failure, Hyperlipidemia Other Pertinent Diagnosis AMS, hypokalemia, NSTEMI, encephalopathy, pneu, hypernatermia, shock liver Current Diet TF - Vital High Protein at 55ml/hr Labs/Tests Na 150 Mg 1.5 Pertinent Medications 20mEq KCl in D5W at 75ml/hr, Propofol at 2.859ml/hr ( provides 75 kcal) Height 5 ft 7 in Weight 95.3 kg [place] Body Weight (kg) 61.36 BMI 32.9 Subjective/Other Information TF infusing at 50ml/hr and pt tolerating per RN report. TF rate to be increased to goal. Pt remains on vent support and receives 300ml water flush q4h. Percent of energy/protein needs met: 66% energy 85% pro #1 Nutrition Diagnosis Inadequate oral intake Diagnosis Progress(for reassessment Continues documentation) Is patient on ventilator? Yes Is Patient Ambulatory and/or Out of Bed No REE-([facility]-confined to bed) 1824.132 Calculation Used for Recommendations 65-70% energy needs Additional Notes Pro needs 2g/kg IBW: 123g/day Fluid needs 1ml/kcal Nutrition Intervention Nutrition Support: Vital High Protein at 55ml/hr. Provide 100ml water flush q4h until hypernatremia resolved. Kcal 1,320 Protein (gm) 116 Fluid (mL) 1,103 Goal #1 TF tolerance Goal #2 TF to meet 65-70% energy and 80-100% pro needs Follow-Up By: 09/06/18 Additional Comments F/U: stable TF, TF goal rate, wt, vent status
--- NOTE | 2018-09-06 09:29 | Progress Note ---
Assessment and Plan Severe sepsis Intermittent fevers andleukocytosis -Fungemia on Micafungin Acute hypoxic-hypercapnic respiratory failure on MVS, re-inttubated h/o COPD Acute kidney injury, resolved Acute encephalopathy( toxic-metabolic) Aspiration pneumonia/CAP New onset cardiomyopathy, LVEF 25-30% this admission Previous echo 03/30/2016 at [facility] revealed normal LVEF Previous stress MPI 03/29/2016 at [facility] revealed no ischemia Abnormal ECG showing LBBB, chronic Anemia s/p PRBC -Recent EGD at [facility] 08/08/2018 revealing irregular Z line, gastritis and small hiatal hernia Recent colonoscopy at [facility] 08/08/2018 revealing sigmoid polyp, transverse colon polyps, inflamed hemorrhoids and diverticulosis E.coli/Staph pneumonia Thrombocytopenia resolved Hypernatremia Hypokalemia -Continue with MVS -Diuresis as tolerated by hemodynamics, renal function -Replete electrolyes as indicated -VAP bundle addressed -Aspiration precautions -Wean supplemental oxygen to keep O2 sats 88-90% -ABG and CXR -Antibiotics/antifungal to complete course per ID -Bronchial washings, no growth -Supportive transfusions as indicated -OGT for free water, medications and nutritional support. - Agitation and analgesia management -Monitor renal indices -Cardioprotective measures -Stress ulcer prophylaxis -Aspiration precautions -Accuchecks with glycemic control. Target glucose of 140-180 mg/dL -Continue bronchodilators with pulmonary hygiene per RT -Maintenance of sleep -wake cycle -Mobility program -Agitation and analgesia -Influenza and pneumonia vaccination per protocol ..care plan discussed at length with RN/RT at the bedside Discussed with the at the bedside. Updated him and care plan discussed. PROGNOSIS :GUARDED CONDITION: CRITICAL CODE STATUS: FULL CODE The high probability of a clinically significant, sudden or life-threatening deterioration of the [respiratory, cardiovascular, renal] system(s) required my full and direct attention, intervention and personal management. The aggregate critical care time was [35] minutes without overlap. Time includes spent on; [x] Data Review and interpretation [x] Patient assessment and monitoring of vital signs [x] Documentation [x] Medication orders and management Subjective Date of service: 09/06/18 Principal diagnosis: Acute hypoxemic hypercapnic Resp failure; AE-COPD; Acute kidney injury Interval history: Follow up: Aspiration PNA, Abnormal CXR, Hypotension, Acute renal failure, Acute encephaloapthy, Acute hypoxemic respiratory failure on MVS Seen and examined. Vitals, labs, medications, chart and imaging reviewed. 24 hours events reviewed. No fevers, no vomiting, on going agitation with desaturations with minimal movement. Remains orally intubated, critically ill. On fentanyl Lower extremity dopplers shows bilateral thrombosis Objective Vital Signs - 12hr 09/05/18 09/05/18 09/05/18 21:30 21:46 22:00 Temperature Pulse Rate 101 H 97 H 85 Pulse Rate [ Anterior Bilateral Throughout] Pulse Rate [ 85 Apical] Respiratory 19 22 30 H Rate Respiratory Rate [Anterior Bilateral Throughout] Blood Pressure 132/55 101/36 89/43 O2 Sat by Pulse 92 100 100 Oximetry 09/05/18 09/05/18 09/05/18 22:15 22:30 22:45 Temperature Pulse Rate 106 H 85 88 Pulse Rate [ Anterior Bilateral Throughout] Pulse Rate [ Apical] Respiratory 30 H 32 H 31 H Rate Respiratory Rate [Anterior Bilateral Throughout] Blood Pressure 84/38 93/36 98/45 O2 Sat by Pulse 100 100 100 Oximetry 09/05/18 09/05/18 09/05/18 23:00 23:09 23:15 Temperature 99.6 F Pulse Rate 88 86 Pulse Rate [ Anterior Bilateral Throughout] Pulse Rate [ Apical] Respiratory 28 H 31 H Rate Respiratory Rate [Anterior Bilateral Throughout] Blood Pressure 87/44 95/46 O2 Sat by Pulse 100 100 Oximetry 09/05/18 09/05/18 09/05/18 23:25 23:30 23:31 Temperature Pulse Rate 89 95 H 91 H Pulse Rate [ Anterior Bilateral Throughout] Pulse Rate [ Apical] Respiratory 28 H 30 H 29 H Rate Respiratory Rate [Anterior Bilateral Throughout] Blood Pressure 95/46 91/45 91/45 O2 Sat by Pulse 100 100 100 Oximetry 09/05/18 09/05/18 09/06/18 23:45 23:50 00:00 Temperature Pulse Rate 85 81 94 H Pulse Rate [ Anterior Bilateral Throughout] Pulse Rate [ 94 H Apical] Respiratory 27 H 31 H 29 H Rate Respiratory Rate [Anterior Bilateral Throughout] Blood Pressure 92/46 91/45 90/45 O2 Sat by Pulse 100 100 100 Oximetry 09/06/18 09/06/18 09/06/18 00:15 00:30 00:45 Temperature Pulse Rate 75 76 77 Pulse Rate [ Anterior Bilateral Throughout] Pulse Rate [ Apical] Respiratory 19 14 16 Rate Respiratory Rate [Anterior Bilateral Throughout] Blood Pressure 90/52 95/44 94/45 O2 Sat by Pulse 98 94 93 Oximetry 09/06/18 09/06/18 09/06/18 00:59 01:00 01:15 Temperature Pulse Rate 81 77 Pulse Rate [ 76 Anterior Bilateral Throughout] Pulse Rate [ Apical] Respiratory 13 13 Rate Respiratory 24 Rate [Anterior Bilateral Throughout] Blood Pressure 102/43 97/48 O2 Sat by Pulse 95 97 Oximetry 09/06/18 09/06/18 09/06/18 01:30 01:45 02:00 Temperature Pulse Rate 80 78 78 Pulse Rate [ Anterior Bilateral Throughout] Pulse Rate [ Apical] Respiratory 13 10 L 14 Rate Respiratory Rate [Anterior Bilateral Throughout] Blood Pressure 106/47 101/44 94/52 O2 Sat by Pulse 98 96 98 Oximetry 09/06/18 09/06/18 09/06/18 02:15 02:30 02:45 Temperature Pulse Rate 79 79 77 Pulse Rate [ Anterior Bilateral Throughout] Pulse Rate [ Apical] Respiratory 13 13 10 L Rate Respiratory Rate [Anterior Bilateral Throughout] Blood Pressure 99/48 96/47 100/50 O2 Sat by Pulse 98 99 98 Oximetry 09/06/18 09/06/18 09/06/18 03:00 03:13 03:14 Temperature 99.2 F Pulse Rate 78 Pulse Rate [ 77 Anterior Bilateral Throughout] Pulse Rate [ Apical] Respiratory 9 L Rate Respiratory 29 H Rate [Anterior Bilateral Throughout] Blood Pressure 106/48 O2 Sat by Pulse 97 Oximetry 09/06/18 09/06/18 09/06/18 03:15 03:30 03:45 Temperature Pulse Rate 76 76 73 Pulse Rate [ Anterior Bilateral Throughout] Pulse Rate [ Apical] Respiratory 11 L 11 L 13 Rate Respiratory Rate [Anterior Bilateral Throughout] Blood Pressure 101/47 107/51 104/50 O2 Sat by Pulse 96 95 96 Oximetry 09/06/18 09/06/18 09/06/18 04:00 04:15 04:30 Temperature Pulse Rate 76 76 73 Pulse Rate [ Anterior Bilateral Throughout] Pulse Rate [ 76 Apical] Respiratory 10 L 15 13 Rate Respiratory Rate [Anterior Bilateral Throughout] Blood Pressure 104/50 100/49 98/47 O2 Sat by Pulse 93 95 89 Oximetry 09/06/18 09/06/18 09/06/18 04:45 05:00 05:15 Temperature Pulse Rate 79 81 82 Pulse Rate [ Anterior Bilateral Throughout] Pulse Rate [ Apical] Respiratory 13 12 15 Rate Respiratory Rate [Anterior Bilateral Throughout] Blood Pressure 108/55 102/51 109/55 O2 Sat by Pulse 81 L 85 82 L Oximetry 09/06/18 09/06/18 09/06/18 05:30 05:46 06:00 Temperature Pulse Rate 81 83 87 Pulse Rate [ Anterior Bilateral Throughout] Pulse Rate [ Apical] Respiratory 15 13 12 Rate Respiratory Rate [Anterior Bilateral Throughout] Blood Pressure 119/46 116/53 122/52 O2 Sat by Pulse 90 92 93 Oximetry 09/06/18 09/06/18 09/06/18 06:15 06:30 06:45 Temperature Pulse Rate 82 81 86 Pulse Rate [ Anterior Bilateral Throughout] Pulse Rate [ Apical] Respiratory 16 13 14 Rate Respiratory Rate [Anterior Bilateral Throughout] Blood Pressure 119/50 108/51 116/50 O2 Sat by Pulse 93 94 93 Oximetry 09/06/18 09/06/18 09/06/18 06:48 07:00 07:15 Temperature Pulse Rate 83 81 86 Pulse Rate [ Anterior Bilateral Throughout] Pulse Rate [ Apical] Respiratory 17 10 L Rate Respiratory Rate [Anterior Bilateral Throughout] Blood Pressure 116/50 117/53 112/53 O2 Sat by Pulse 92 92 Oximetry 09/06/18 09/06/18 09/06/18 07:30 07:45 07:50 Temperature Pulse Rate 81 78 81 Pulse Rate [ Anterior Bilateral Throughout] Pulse Rate [ Apical] Respiratory 21 21 Rate Respiratory Rate [Anterior Bilateral Throughout] Blood Pressure 103/45 112/48 112/48 O2 Sat by Pulse 95 94 100 Oximetry 09/06/18 09/06/18 09/06/18 07:59 08:00 08:15 Temperature 99.9 F H Pulse Rate 89 104 H Pulse Rate [ 90 Anterior Bilateral Throughout] Pulse Rate [ 91 H Apical] Respiratory 19 18 Rate Respiratory 36 H Rate [Anterior Bilateral Throughout] Blood Pressure 112/48 156/101 O2 Sat by Pulse 99 93 Oximetry 09/06/18 09/06/18 09/06/18 08:17 08:30 08:46 Temperature Pulse Rate 97 H 94 H Pulse Rate [ 104 H Anterior Bilateral Throughout] Pulse Rate [ Apical] Respiratory 17 18 Rate Respiratory 37 H Rate [Anterior Bilateral Throughout] Blood Pressure 133/61 88/42 O2 Sat by Pulse 91 96 Oximetry 09/06/18 09:00 Temperature Pulse Rate 93 H Pulse Rate [ Anterior Bilateral Throughout] Pulse Rate [ Apical] Respiratory 17 Rate Respiratory Rate [Anterior Bilateral Throughout] Blood Pressure 104/44 O2 Sat by Pulse 95 Oximetry Constitutional: appears uncomfortable, other (elderly looking CF, normocephalic and atraumatic) Eyes: non-icteric ENT: oropharynx moist, other (ETT 23 cm MARTHA) Neck: supple, no lymphadenopathy, no JVD, other (no thyromegaly) Effort: mildly labored Ascultation: Bilateral: diminished breath sounds, rales, rhonchi Percussion: Bilateral: not dull Cardiovascular: regular rate and rhythm Gastrointestinal: normoactive bowel sounds, soft, non-tender, non-distended Integumentary: normal Extremities: no cyanosis, no ischemia or petechiae, edema (Left lower extremity) Neurologic: non-focal exam (grossly), pupils equal and round, CN II-XII normal, motor strength normal and Psychiatric: other (unable to assess) CBC and BMP: 09/21/18 04:35 09/22/18 04:11 ABG, PT/INR, D-dimer: ABG POC ABG pH 7.303 (7.35-7.45) L 09/06/18 03:33 POC ABG pCO2 49.2 (35-45) H 09/06/18 03:33 POC ABG pO2 73 (80-105) L 09/06/18 03:33 POC ABG HCO3 24.4 (22-26 mml/L) 09/06/18 03:33 POC ABG Total CO2 26 (23-27mmol/L) 09/06/18 03:33 POC ABG O2 Sat 93 09/06/18 03:33 PT/INR, D-dimer D-Dimer 2768.33 ng/mlDDU (0-234) H 08/15/18 18:31 Abnormal lab findings: Abnormal Labs 08/15/18 08/15/18 08/15/18 17:52 17:52 17:52 WBC 12.7 H RBC 3.25 L Hgb Hct RDW Plt Count Lymph % (Auto) [place] % (Auto) Lymph # [place] # Seg Neutrophils % Seg Neuts % (Manual) Lymphocytes % (Manual) 6.0 L Nucleated RBC % Seg Neutrophils # Seg Neutrophils # Man Lymphocytes # (Manual) 0.8 L D-Dimer POC ABG pH POC ABG pCO2 POC ABG pO2 VBG pH Sodium Potassium 3.4 L Chloride 94.6 L Carbon Dioxide 17 L BUN 67 H Creatinine 3.5 H Glucose 131 H POC Glucose Hemoglobin A1c Lactic Acid 5.20 H* Calcium 7.6 L Phosphorus Magnesium AST 887 H ALT 316 H Troponin T C-Reactive Protein Total Protein Albumin 3.1 L Triglycerides LDL Cholesterol Direct HDL Cholesterol Urine WBC (Auto) Salicylates Acetaminophen % CD3 Cells % CD19 Cells Absolute CD19 Count Miscellaneous Test Crossmatch 08/15/18 08/15/18 08/15/18 18:11 18:19 18:31 WBC RBC Hgb Hct RDW Plt Count Lymph % (Auto) [place] % (Auto) Lymph # [place] # Seg Neutrophils % Seg Neuts % (Manual) Lymphocytes % (Manual) Nucleated RBC % Seg Neutrophils # Seg Neutrophils # Man Lymphocytes # (Manual) D-Dimer 2768.33 H POC ABG pH 7.173 L POC ABG pCO2 47.8 H POC ABG pO2 177 H VBG pH 7.187 L* Sodium Potassium Chloride Carbon Dioxide BUN Creatinine Glucose POC Glucose Hemoglobin A1c Lactic Acid Calcium Phosphorus Magnesium AST ALT Troponin T C-Reactive Protein Total Protein Albumin Triglycerides LDL Cholesterol Direct HDL Cholesterol Urine WBC (Auto) Salicylates Acetaminophen % CD3 Cells % CD19 Cells Absolute CD19 Count Miscellaneous Test Crossmatch 08/15/18 08/15/18 08/15/18 18:31 19:14 19:14 WBC RBC Hgb Hct RDW Plt Count Lymph % (Auto) [place] % (Auto) Lymph # [place] # Seg Neutrophils % Seg Neuts % (Manual) Lymphocytes % (Manual) Nucleated RBC % Seg Neutrophils # Seg Neutrophils # Man Lymphocytes # (Manual) D-Dimer POC ABG pH POC ABG pCO2 POC ABG pO2 VBG pH Sodium Potassium Chloride Carbon Dioxide BUN Creatinine Glucose POC Glucose Hemoglobin A1c Lactic Acid 2.70 H* Calcium Phosphorus Magnesium AST ALT Troponin T 0.454 H* C-Reactive Protein Total Protein Albumin Triglycerides 356 H LDL Cholesterol Direct 4 L HDL Cholesterol 10 L Urine WBC (Auto) Salicylates < 0.3 L Acetaminophen % CD3 Cells % CD19 Cells Absolute CD19 Count Miscellaneous Test Crossmatch 08/15/18 08/15/18 08/15/18 19:14 19:15 23:09 WBC RBC Hgb Hct RDW Plt Count Lymph % (Auto) [place] % (Auto) Lymph # [place] # Seg Neutrophils % Seg Neuts % (Manual) Lymphocytes % (Manual) Nucleated RBC % Seg Neutrophils # Seg Neutrophils # Man Lymphocytes # (Manual) D-Dimer POC ABG pH POC ABG pCO2 POC ABG pO2 VBG pH Sodium Potassium Chloride Carbon Dioxide BUN Creatinine Glucose POC Glucose Hemoglobin A1c Lactic Acid 3.20 H* Calcium Phosphorus Magnesium AST ALT Troponin T C-Reactive Protein Total Protein Albumin Triglycerides LDL Cholesterol Direct HDL Cholesterol Urine WBC (Auto) 17.0 H Salicylates Acetaminophen < 5.0 L % CD3 Cells % CD19 Cells Absolute CD19 Count Miscellaneous Test Crossmatch 08/15/18 08/16/18 08/16/18 23:09 01:41 05:38 WBC RBC 3.07 L Hgb 9.8 L Hct 28.7 L RDW Plt Count Lymph % (Auto) [place] % (Auto) Lymph # [place] # Seg Neutrophils % Seg Neuts % (Manual) 84.0 H Lymphocytes % (Manual) 6.0 L Nucleated RBC % 4.0 H Seg Neutrophils # Seg Neutrophils # Man Lymphocytes # (Manual) 0.5 L D-Dimer POC ABG pH 7.323 L POC ABG pCO2 34.7 L POC ABG pO2 78 L VBG pH Sodium Potassium Chloride Carbon Dioxide BUN Creatinine Glucose POC Glucose Hemoglobin A1c 6.4 H Lactic Acid Calcium Phosphorus Magnesium AST ALT Troponin T C-Reactive Protein Total Protein Albumin Triglycerides LDL Cholesterol Direct HDL Cholesterol Urine WBC (Auto) Salicylates Acetaminophen % CD3 Cells % CD19 Cells Absolute CD19 Count Miscellaneous Test Crossmatch 08/16/18 08/16/18 08/17/18 05:38 22:43 03:42 WBC RBC Hgb Hct RDW Plt Count Lymph % (Auto) [place] % (Auto) Lymph # [place] # Seg Neutrophils % Seg Neuts % (Manual) Lymphocytes % (Manual) Nucleated RBC % Seg Neutrophils # Seg Neutrophils # Man Lymphocytes # (Manual) D-Dimer POC ABG pH POC ABG pCO2 POC ABG pO2 VBG pH Sodium Potassium 2.9 L* 3.1 L 2.9 L* Chloride 108.8 H 111.9 H Carbon Dioxide 17 L 19 L 21 L BUN 62 H 40 H 33 H Creatinine 2.0 H Glucose 139 H 145 H POC Glucose Hemoglobin A1c Lactic Acid Calcium 7.8 L 8.3 L Phosphorus 1.50 L Magnesium AST 619 H ALT 353 H Troponin T C-Reactive Protein Total Protein 6.1 L Albumin 2.8 L Triglycerides LDL Cholesterol Direct HDL Cholesterol Urine WBC (Auto) Salicylates Acetaminophen % CD3 Cells % CD19 Cells Absolute CD19 Count Miscellaneous Test Crossmatch 08/17/18 08/17/18 08/18/18 11:02 16:42 03:28 WBC RBC Hgb Hct RDW Plt Count Lymph % (Auto) [place] % (Auto) Lymph # [place] # Seg Neutrophils % Seg Neuts % (Manual) Lymphocytes % (Manual) Nucleated RBC % Seg Neutrophils # Seg Neutrophils # Man Lymphocytes # (Manual) D-Dimer POC ABG pH 7.483 H 7.499 H POC ABG pCO2 POC ABG pO2 VBG pH Sodium 147 H Potassium 3.2 L Chloride 115.8 H Carbon Dioxide BUN 23 H Creatinine Glucose 121 H POC Glucose Hemoglobin A1c Lactic Acid Calcium 8.1 L Phosphorus 2.30 L D Magnesium AST ALT Troponin T C-Reactive Protein Total Protein Albumin Triglycerides LDL Cholesterol Direct HDL Cholesterol Urine WBC (Auto) Salicylates Acetaminophen % CD3 Cells % CD19 Cells Absolute CD19 Count Miscellaneous Test Crossmatch 08/18/18 08/18/18 08/18/18 04:10 13:39 13:39 WBC RBC Hgb Hct RDW Plt Count Lymph % (Auto) [place] % (Auto) Lymph # [place] # Seg Neutrophils % Seg Neuts % (Manual) Lymphocytes % (Manual) Nucleated RBC % Seg Neutrophils # Seg Neutrophils # Man Lymphocytes # (Manual) D-Dimer POC ABG pH POC ABG pCO2 POC ABG pO2 VBG pH Sodium 147 H Potassium 3.3 L Chloride 111.9 H Carbon Dioxide BUN 21 H Creatinine Glucose 113 H POC Glucose Hemoglobin A1c Lactic Acid Calcium Phosphorus 1.50 L D Magnesium AST ALT Troponin T 0.317 H* D C-Reactive Protein 10.70 H Total Protein Albumin Triglycerides LDL Cholesterol Direct HDL Cholesterol Urine WBC (Auto) Salicylates Acetaminophen % CD3 Cells % CD19 Cells Absolute CD19 Count Miscellaneous Test Crossmatch 08/18/18 08/19/18 08/19/18 16:51 03:47 04:15 WBC RBC Hgb Hct RDW Plt Count Lymph % (Auto) [place] % (Auto) Lymph # [place] # Seg Neutrophils % Seg Neuts % (Manual) Lymphocytes % (Manual) Nucleated RBC % Seg Neutrophils # Seg Neutrophils # Man Lymphocytes # (Manual) D-Dimer POC ABG pH 7.454 H 7.482 H POC ABG pCO2 POC ABG pO2 65 L VBG pH Sodium 154 H Potassium 3.3 L Chloride 115.1 H Carbon Dioxide BUN 19 H Creatinine Glucose 117 H POC Glucose Hemoglobin A1c Lactic Acid Calcium 7.8 L Phosphorus Magnesium AST ALT Troponin T C-Reactive Protein Total Protein Albumin Triglycerides LDL Cholesterol Direct HDL Cholesterol Urine WBC (Auto) Salicylates Acetaminophen % CD3 Cells % CD19 Cells Absolute CD19 Count Miscellaneous Test Crossmatch 08/19/18 08/19/18 08/20/18 14:32 16:18 03:51 WBC RBC Hgb Hct RDW Plt Count Lymph % (Auto) [place] % (Auto) Lymph # [place] # Seg Neutrophils % Seg Neuts % (Manual) Lymphocytes % (Manual) Nucleated RBC % Seg Neutrophils # Seg Neutrophils # Man Lymphocytes # (Manual) D-Dimer POC ABG pH 7.483 H POC ABG pCO2 33.4 L POC ABG pO2 51 L 74 L VBG pH Sodium Potassium Chloride Carbon Dioxide BUN Creatinine Glucose POC Glucose Hemoglobin A1c Lactic Acid Calcium Phosphorus Magnesium AST ALT Troponin T C-Reactive Protein Total Protein Albumin Triglycerides LDL Cholesterol Direct HDL Cholesterol Urine WBC (Auto) Salicylates Acetaminophen % CD3 Cells 44 L % CD19 Cells 41 H Absolute CD19 Count 1290 H Miscellaneous Test Crossmatch 08/20/18 08/21/18 08/21/18 05:25 03:54 05:45 WBC 24.1 H RBC 2.83 L Hgb 8.8 L Hct 26.7 L RDW 15.7 H Plt Count 127 L Lymph % (Auto) [place] % (Auto) Lymph # [place] # Seg Neutrophils % Seg Neuts % (Manual) 94.0 H Lymphocytes % (Manual) 4.0 L Nucleated RBC % 1.0 H Seg Neutrophils # Seg Neutrophils # Man 22.7 H Lymphocytes # (Manual) 1.0 L D-Dimer POC ABG pH POC ABG pCO2 31.9 L POC ABG pO2 66 L VBG pH Sodium 146 H D Potassium Chloride 111.2 H Carbon Dioxide BUN 24 H Creatinine Glucose 141 H POC Glucose Hemoglobin A1c Lactic Acid Calcium 8.1 L Phosphorus Magnesium AST 65 H ALT 104 H Troponin T C-Reactive Protein Total Protein 6.2 L Albumin 2.6 L Triglycerides LDL Cholesterol Direct HDL Cholesterol Urine WBC (Auto) Salicylates Acetaminophen % CD3 Cells % CD19 Cells Absolute CD19 Count Miscellaneous Test Crossmatch 08/21/18 08/22/18 08/22/18 05:45 06:20 06:45 WBC RBC Hgb Hct RDW Plt Count Lymph % (Auto) [place] % (Auto) Lymph # [place] # Seg Neutrophils % Seg Neuts % (Manual) Lymphocytes % (Manual) Nucleated RBC % Seg Neutrophils # Seg Neutrophils # Man Lymphocytes # (Manual) D-Dimer POC ABG pH POC ABG pCO2 32.9 L POC ABG pO2 VBG pH Sodium Potassium 3.5 L Chloride 109.4 H 112.4 H Carbon Dioxide 21 L 20 L BUN 50 H 61 H Creatinine 2.0 H D 1.9 H Glucose 144 H 154 H POC Glucose Hemoglobin A1c Lactic Acid Calcium 7.6 L 7.8 L Phosphorus Magnesium AST ALT Troponin T C-Reactive Protein Total Protein 5.3 L Albumin 2.1 L Triglycerides LDL Cholesterol Direct HDL Cholesterol Urine WBC (Auto) Salicylates Acetaminophen % CD3 Cells % CD19 Cells Absolute CD19 Count Miscellaneous Test Crossmatch 08/22/18 08/22/18 08/22/18 06:45 15:29 18:40 WBC RBC Hgb Hct RDW Plt Count Lymph % (Auto) [place] % (Auto) Lymph # [place] # Seg Neutrophils % Seg Neuts % (Manual) Lymphocytes % (Manual) Nucleated RBC % Seg Neutrophils # Seg Neutrophils # Man Lymphocytes # (Manual) D-Dimer POC ABG pH POC ABG pCO2 POC ABG pO2 VBG pH Sodium Potassium Chloride Carbon Dioxide BUN Creatinine Glucose POC Glucose 169 H Hemoglobin A1c Lactic Acid Calcium Phosphorus Magnesium AST ALT Troponin T C-Reactive Protein 4.70 H Total Protein Albumin Triglycerides 197 H LDL Cholesterol Direct HDL Cholesterol Urine WBC (Auto) Salicylates Acetaminophen % CD3 Cells % CD19 Cells Absolute CD19 Count Miscellaneous Test Crossmatch 08/23/18 08/23/18 08/23/18 03:59 21:19 Unknown WBC 12.1 H RBC 2.29 L Hgb 7.1 L Hct 21.7 L RDW 15.7 H Plt Count 106 L Lymph % (Auto) [place] % (Auto) Lymph # [place] # Seg Neutrophils % Seg Neuts % (Manual) 92.0 H Lymphocytes % (Manual) 4.0 L Nucleated RBC % Seg Neutrophils # Seg Neutrophils # Man 11.1 H Lymphocytes # (Manual) 0.5 L D-Dimer POC ABG pH 7.306 L POC ABG pCO2 31.3 L POC ABG pO2 119 H 75 L VBG pH Sodium Potassium Chloride Carbon Dioxide BUN Creatinine Glucose POC Glucose Hemoglobin A1c Lactic Acid Calcium Phosphorus Magnesium AST ALT Troponin T C-Reactive Protein Total Protein Albumin Triglycerides LDL Cholesterol Direct HDL Cholesterol Urine WBC (Auto) Salicylates Acetaminophen % CD3 Cells % CD19 Cells Absolute CD19 Count Miscellaneous Test Crossmatch 08/23/18 08/24/18 08/24/18 Unknown 04:18 08:30 WBC 12.8 H RBC 2.24 L Hgb 7.0 L Hct 21.1 L RDW Plt Count Lymph % (Auto) [place] % (Auto) Lymph # [place] # Seg Neutrophils % Seg Neuts % (Manual) 93.0 H Lymphocytes % (Manual) 6.0 L Nucleated RBC % Seg Neutrophils # Seg Neutrophils # Man 11.9 H Lymphocytes # (Manual) 0.8 L D-Dimer POC ABG pH POC ABG pCO2 POC ABG pO2 78 L VBG pH Sodium Potassium Chloride 115.7 H Carbon Dioxide 21 L BUN 64 H Creatinine 2.0 H Glucose 149 H POC Glucose Hemoglobin A1c Lactic Acid Calcium 7.5 L Phosphorus Magnesium AST ALT Troponin T C-Reactive Protein Total Protein 4.8 L Albumin 2.0 L Triglycerides LDL Cholesterol Direct HDL Cholesterol Urine WBC (Auto) Salicylates Acetaminophen % CD3 Cells % CD19 Cells Absolute CD19 Count Miscellaneous Test Crossmatch 08/24/18 08/24/18 08/24/18 08:30 17:44 18:28 WBC RBC Hgb Hct RDW Plt Count Lymph % (Auto) [place] % (Auto) Lymph # [place] # Seg Neutrophils % Seg Neuts % (Manual) Lymphocytes % (Manual) Nucleated RBC % Seg Neutrophils # Seg Neutrophils # Man Lymphocytes # (Manual) D-Dimer POC ABG pH 7.474 H POC ABG pCO2 POC ABG pO2 61 L VBG pH Sodium Potassium Chloride 108.3 H Carbon Dioxide 20 L BUN 65 H Creatinine 2.0 H Glucose 167 H POC Glucose 164 H Hemoglobin A1c Lactic Acid Calcium 7.7 L Phosphorus Magnesium AST ALT Troponin T C-Reactive Protein Total Protein 5.3 L Albumin 2.2 L Triglycerides LDL Cholesterol Direct HDL Cholesterol Urine WBC (Auto) Salicylates Acetaminophen % CD3 Cells % CD19 Cells Absolute CD19 Count Miscellaneous Test Crossmatch 08/25/18 08/25/18 08/25/18 03:35 05:20 05:20 WBC RBC Hgb 6.7 L Hct 21.0 L RDW Plt Count Lymph % (Auto) [place] % (Auto) Lymph # [place] # Seg Neutrophils % Seg Neuts % (Manual) Lymphocytes % (Manual) Nucleated RBC % Seg Neutrophils # Seg Neutrophils # Man Lymphocytes # (Manual) D-Dimer POC ABG pH POC ABG pCO2 POC ABG pO2 79 L VBG pH Sodium Potassium Chloride Carbon Dioxide 21 L BUN 71 H Creatinine 3.1 H D Glucose 171 H POC Glucose Hemoglobin A1c Lactic Acid Calcium 7.5 L Phosphorus Magnesium AST ALT Troponin T C-Reactive Protein Total Protein Albumin Triglycerides LDL Cholesterol Direct HDL Cholesterol Urine WBC (Auto) Salicylates Acetaminophen % CD3 Cells % CD19 Cells Absolute CD19 Count Miscellaneous Test Crossmatch 08/25/18 08/25/18 08/25/18 05:20 08:52 12:42 WBC RBC Hgb Hct RDW Plt Count Lymph % (Auto) [place] % (Auto) Lymph # [place] # Seg Neutrophils % Seg Neuts % (Manual) Lymphocytes % (Manual) Nucleated RBC % Seg Neutrophils # Seg Neutrophils # Man Lymphocytes # (Manual) D-Dimer POC ABG pH POC ABG pCO2 POC ABG pO2 VBG pH Sodium Potassium Chloride Carbon Dioxide BUN Creatinine Glucose POC Glucose 166 H Hemoglobin A1c Lactic Acid Calcium Phosphorus Magnesium AST ALT Troponin T C-Reactive Protein 5.00 H Total Protein Albumin Triglycerides LDL Cholesterol Direct HDL Cholesterol Urine WBC (Auto) Salicylates Acetaminophen % CD3 Cells % CD19 Cells Absolute CD19 Count Miscellaneous Test Crossmatch See Detail 08/25/18 08/26/18 08/26/18 18:05 00:13 04:53 WBC RBC Hgb Hct RDW Plt Count Lymph % (Auto) [place] % (Auto) Lymph # [place] # Seg Neutrophils % Seg Neuts % (Manual) Lymphocytes % (Manual) Nucleated RBC % Seg Neutrophils # Seg Neutrophils # Man Lymphocytes # (Manual) D-Dimer POC ABG pH POC ABG pCO2 30.9 L POC ABG pO2 70 L VBG pH Sodium Potassium Chloride Carbon Dioxide BUN Creatinine Glucose POC Glucose 121 H 164 H Hemoglobin A1c Lactic Acid Calcium Phosphorus Magnesium AST ALT Troponin T C-Reactive Protein Total Protein Albumin Triglycerides LDL Cholesterol Direct HDL Cholesterol Urine WBC (Auto) Salicylates Acetaminophen % CD3 Cells % CD19 Cells Absolute CD19 Count Miscellaneous Test Crossmatch 08/26/18 08/26/18 08/26/18 05:42 06:00 06:00 WBC RBC 2.62 L Hgb 7.7 L Hct 23.0 L RDW 22.0 H Plt Count Lymph % (Auto) 6.3 L [place] % (Auto) Lymph # 0.7 L [place] # Seg Neutrophils % 88.1 H Seg Neuts % (Manual) Lymphocytes % (Manual) Nucleated RBC % Seg Neutrophils # 9.6 H Seg Neutrophils # Man Lymphocytes # (Manual) D-Dimer POC ABG pH POC ABG pCO2 POC ABG pO2 VBG pH Sodium Potassium Chloride Carbon Dioxide 21 L BUN 70 H Creatinine 3.3 H Glucose 146 H POC Glucose 149 H Hemoglobin A1c Lactic Acid Calcium 8.0 L Phosphorus Magnesium AST ALT Troponin T C-Reactive Protein Total Protein Albumin Triglycerides LDL Cholesterol Direct HDL Cholesterol Urine WBC (Auto) Salicylates Acetaminophen % CD3 Cells % CD19 Cells Absolute CD19 Count Miscellaneous Test Crossmatch 08/26/18 08/26/18 08/27/18 11:37 23:54 04:35 WBC RBC 2.50 L Hgb 7.6 L Hct 22.3 L RDW 21.8 H Plt Count Lymph % (Auto) 7.3 L [place] % (Auto) Lymph # 0.7 L [place] # Seg Neutrophils % 85.6 H Seg Neuts % (Manual) Lymphocytes % (Manual) Nucleated RBC % Seg Neutrophils # 8.6 H Seg Neutrophils # Man Lymphocytes # (Manual) D-Dimer POC ABG pH POC ABG pCO2 POC ABG pO2 VBG pH Sodium Potassium Chloride Carbon Dioxide BUN Creatinine Glucose POC Glucose 183 H 150 H Hemoglobin A1c Lactic Acid Calcium Phosphorus Magnesium AST ALT Troponin T C-Reactive Protein Total Protein Albumin Triglycerides LDL Cholesterol Direct HDL Cholesterol Urine WBC (Auto) Salicylates Acetaminophen % CD3 Cells % CD19 Cells Absolute CD19 Count Miscellaneous Test Crossmatch 08/27/18 08/27/18 08/28/18 04:35 12:17 04:43 WBC RBC Hgb Hct RDW Plt Count Lymph % (Auto) [place] % (Auto) Lymph # [place] # Seg Neutrophils % Seg Neuts % (Manual) Lymphocytes % (Manual) Nucleated RBC % Seg Neutrophils # Seg Neutrophils # Man Lymphocytes # (Manual) D-Dimer POC ABG pH POC ABG pCO2 32.1 L 33.8 L POC ABG pO2 68 L 78 L VBG pH Sodium Potassium Chloride Carbon Dioxide 19 L BUN 67 H Creatinine 2.9 H Glucose 155 H POC Glucose Hemoglobin A1c Lactic Acid Calcium Phosphorus 4.70 H Magnesium AST ALT Troponin T C-Reactive Protein Total Protein Albumin Triglycerides LDL Cholesterol Direct HDL Cholesterol Urine WBC (Auto) Salicylates Acetaminophen % CD3 Cells % CD19 Cells Absolute CD19 Count Miscellaneous Test Crossmatch 08/28/18 08/28/18 08/28/18 05:03 05:20 05:20 WBC RBC 2.43 L Hgb 7.4 L Hct 21.8 L RDW 20.8 H Plt Count Lymph % (Auto) 7.6 L [place] % (Auto) 8.7 H Lymph # 0.7 L [place] # Seg Neutrophils % 82.9 H Seg Neuts % (Manual) Lymphocytes % (Manual) Nucleated RBC % Seg Neutrophils # Seg Neutrophils # Man Lymphocytes # (Manual) D-Dimer POC ABG pH POC ABG pCO2 POC ABG pO2 VBG pH Sodium Potassium Chloride 107.8 H Carbon Dioxide 21 L BUN 55 H Creatinine 2.0 H Glucose 177 H POC Glucose 160 H Hemoglobin A1c Lactic Acid Calcium Phosphorus Magnesium AST ALT Troponin T C-Reactive Protein Total Protein Albumin Triglycerides LDL Cholesterol Direct HDL Cholesterol Urine WBC (Auto) Salicylates Acetaminophen % CD3 Cells % CD19 Cells Absolute CD19 Count Miscellaneous Test Crossmatch 08/28/18 08/28/18 08/28/18 12:18 18:58 22:31 WBC RBC Hgb Hct RDW Plt Count Lymph % (Auto) [place] % (Auto) Lymph # [place] # Seg Neutrophils % Seg Neuts % (Manual) Lymphocytes % (Manual) Nucleated RBC % Seg Neutrophils # Seg Neutrophils # Man Lymphocytes # (Manual) D-Dimer POC ABG pH POC ABG pCO2 34.4 L POC ABG pO2 67 L VBG pH Sodium Potassium Chloride Carbon Dioxide BUN Creatinine Glucose POC Glucose 164 H 149 H Hemoglobin A1c Lactic Acid Calcium Phosphorus Magnesium AST ALT Troponin T C-Reactive Protein Total Protein Albumin Triglycerides LDL Cholesterol Direct HDL Cholesterol Urine WBC (Auto) Salicylates Acetaminophen % CD3 Cells % CD19 Cells Absolute CD19 Count Miscellaneous Test Crossmatch 08/28/18 08/29/18 08/29/18 23:33 05:25 05:25 WBC RBC 2.30 L Hgb 7.0 L Hct 20.9 L RDW 21.0 H Plt Count Lymph % (Auto) 11.5 L [place] % (Auto) 9.2 H Lymph # 0.8 L [place] # Seg Neutrophils % 78.8 H Seg Neuts % (Manual) Lymphocytes % (Manual) Nucleated RBC % Seg Neutrophils # Seg Neutrophils # Man Lymphocytes # (Manual) D-Dimer POC ABG pH POC ABG pCO2 POC ABG pO2 VBG pH Sodium Potassium Chloride 111.1 H Carbon Dioxide BUN 55 H Creatinine 1.8 H Glucose 162 H POC Glucose 143 H Hemoglobin A1c Lactic Acid Calcium Phosphorus Magnesium AST 46 H ALT < 5 L Troponin T C-Reactive Protein Total Protein 5.7 L Albumin 2.1 L Triglycerides LDL Cholesterol Direct HDL Cholesterol Urine WBC (Auto) Salicylates Acetaminophen % CD3 Cells % CD19 Cells Absolute CD19 Count Miscellaneous Test Crossmatch 08/29/18 08/29/18 08/30/18 18:19 23:35 05:03 WBC RBC Hgb Hct RDW Plt Count Lymph % (Auto) [place] % (Auto) Lymph # [place] # Seg Neutrophils % Seg Neuts % (Manual) Lymphocytes % (Manual) Nucleated RBC % Seg Neutrophils # Seg Neutrophils # Man Lymphocytes # (Manual) D-Dimer POC ABG pH POC ABG pCO2 POC ABG pO2 VBG pH Sodium Potassium Chloride Carbon Dioxide BUN Creatinine Glucose POC Glucose 155 H 139 H 122 H Hemoglobin A1c Lactic Acid Calcium Phosphorus Magnesium AST ALT Troponin T C-Reactive Protein Total Protein Albumin Triglycerides LDL Cholesterol Direct HDL Cholesterol Urine WBC (Auto) Salicylates Acetaminophen % CD3 Cells % CD19 Cells Absolute CD19 Count Miscellaneous Test Crossmatch 08/30/18 08/30/18 08/30/18 09:33 09:33 09:54 WBC RBC 2.58 L Hgb 7.9 L Hct 23.5 L RDW 20.9 H Plt Count Lymph % (Auto) 8.0 L [place] % (Auto) 9.7 H Lymph # 0.8 L [place] # 1.0 H Seg Neutrophils % 82.1 H Seg Neuts % (Manual) Lymphocytes % (Manual) Nucleated RBC % Seg Neutrophils # 8.2 H Seg Neutrophils # Man Lymphocytes # (Manual) D-Dimer POC ABG pH POC ABG pCO2 POC ABG pO2 VBG pH Sodium 146 H Potassium Chloride 110.7 H Carbon Dioxide BUN 56 H Creatinine 1.9 H Glucose 145 H POC Glucose Hemoglobin A1c Lactic Acid Calcium Phosphorus 4.60 H Magnesium AST ALT < 5 L Troponin T C-Reactive Protein Total Protein Albumin 2.7 L Triglycerides LDL Cholesterol Direct HDL Cholesterol Urine WBC (Auto) Salicylates Acetaminophen % CD3 Cells % CD19 Cells Absolute CD19 Count Miscellaneous Test Flexitest 1 H Crossmatch 08/30/18 08/30/18 08/30/18 09:57 11:26 18:08 WBC RBC Hgb Hct RDW Plt Count Lymph % (Auto) [place] % (Auto) Lymph # [place] # Seg Neutrophils % Seg Neuts % (Manual) Lymphocytes % (Manual) Nucleated RBC % Seg Neutrophils # Seg Neutrophils # Man Lymphocytes # (Manual) D-Dimer POC ABG pH POC ABG pCO2 POC ABG pO2 VBG pH Sodium Potassium Chloride Carbon Dioxide BUN Creatinine Glucose POC Glucose 149 H 156 H Hemoglobin A1c Lactic Acid Calcium Phosphorus Magnesium AST ALT Troponin T C-Reactive Protein Total Protein Albumin Triglycerides LDL Cholesterol Direct HDL Cholesterol Urine WBC (Auto) Salicylates Acetaminophen % CD3 Cells % CD19 Cells Absolute CD19 Count Miscellaneous Test Flexitest 1 H Crossmatch 08/30/18 08/31/18 08/31/18 23:14 05:16 08:40 WBC RBC Hgb Hct RDW Plt Count Lymph % (Auto) [place] % (Auto) Lymph # [place] # Seg Neutrophils % Seg Neuts % (Manual) Lymphocytes % (Manual) Nucleated RBC % Seg Neutrophils # Seg Neutrophils # Man Lymphocytes # (Manual) D-Dimer POC ABG pH POC ABG pCO2 POC ABG pO2 VBG pH Sodium 151 H Potassium Chloride 113.8 H Carbon Dioxide BUN 45 H Creatinine Glucose 144 H POC Glucose 117 H 133 H Hemoglobin A1c Lactic Acid Calcium Phosphorus Magnesium AST ALT Troponin T C-Reactive Protein Total Protein Albumin Triglycerides LDL Cholesterol Direct HDL Cholesterol Urine WBC (Auto) Salicylates Acetaminophen % CD3 Cells % CD19 Cells Absolute CD19 Count Miscellaneous Test Crossmatch 08/31/18 09/01/18 09/01/18 23:46 04:45 04:45 WBC RBC 2.38 L Hgb 7.3 L Hct 22.1 L RDW 21.1 H Plt Count Lymph % (Auto) [place] % (Auto) Lymph # [place] # Seg Neutrophils % Seg Neuts % (Manual) 93.0 H Lymphocytes % (Manual) 4.0 L Nucleated RBC % Seg Neutrophils # Seg Neutrophils # Man 10.1 H Lymphocytes # (Manual) 0.4 L D-Dimer POC ABG pH POC ABG pCO2 POC ABG pO2 VBG pH Sodium 156 H Potassium 3.1 L Chloride 115.2 H Carbon Dioxide BUN 34 H Creatinine Glucose 125 H POC Glucose 124 H Hemoglobin A1c Lactic Acid Calcium Phosphorus Magnesium AST ALT Troponin T C-Reactive Protein Total Protein Albumin Triglycerides LDL Cholesterol Direct HDL Cholesterol Urine WBC (Auto) Salicylates Acetaminophen % CD3 Cells % CD19 Cells Absolute CD19 Count Miscellaneous Test Crossmatch 09/01/18 09/01/18 09/01/18 05:34 11:20 17:52 WBC RBC Hgb Hct RDW Plt Count Lymph % (Auto) [place] % (Auto) Lymph # [place] # Seg Neutrophils % Seg Neuts % (Manual) Lymphocytes % (Manual) Nucleated RBC % Seg Neutrophils # Seg Neutrophils # Man Lymphocytes # (Manual) D-Dimer POC ABG pH 7.553 H POC ABG pCO2 POC ABG pO2 74 L VBG pH Sodium Potassium Chloride Carbon Dioxide BUN Creatinine Glucose POC Glucose 128 H 146 H Hemoglobin A1c Lactic Acid Calcium Phosphorus Magnesium AST ALT Troponin T C-Reactive Protein Total Protein Albumin Triglycerides LDL Cholesterol Direct HDL Cholesterol Urine WBC (Auto) Salicylates Acetaminophen % CD3 Cells % CD19 Cells Absolute CD19 Count Miscellaneous Test Crossmatch 09/01/18 09/02/18 09/02/18 17:52 04:13 04:58 WBC 16.4 H RBC 2.64 L Hgb 7.9 L Hct 24.3 L RDW 20.8 H Plt Count Lymph % (Auto) [place] % (Auto) Lymph # [place] # Seg Neutrophils % Seg Neuts % (Manual) 96.0 H Lymphocytes % (Manual) 1.0 L Nucleated RBC % Seg Neutrophils # Seg Neutrophils # Man 15.7 H Lymphocytes # (Manual) 0.2 L D-Dimer POC ABG pH 7.488 H POC ABG pCO2 POC ABG pO2 63 L VBG pH Sodium Potassium Chloride Carbon Dioxide BUN Creatinine Glucose POC Glucose 143 H Hemoglobin A1c Lactic Acid Calcium Phosphorus Magnesium AST ALT Troponin T C-Reactive Protein Total Protein Albumin Triglycerides LDL Cholesterol Direct HDL Cholesterol Urine WBC (Auto) Salicylates Acetaminophen % CD3 Cells % CD19 Cells Absolute CD19 Count Miscellaneous Test Crossmatch 09/02/18 09/02/18 09/02/18 04:58 11:03 18:18 WBC RBC Hgb Hct RDW Plt Count Lymph % (Auto) [place] % (Auto) Lymph # [place] # Seg Neutrophils % Seg Neuts % (Manual) Lymphocytes % (Manual) Nucleated RBC % Seg Neutrophils # Seg Neutrophils # Man Lymphocytes # (Manual) D-Dimer POC ABG pH 7.344 L POC ABG pCO2 52.8 H POC ABG pO2 VBG pH Sodium 158 H Potassium 2.9 L* Chloride 115.7 H Carbon Dioxide BUN 27 H Creatinine 0.6 L Glucose 128 H POC Glucose 121 H Hemoglobin A1c Lactic Acid Calcium Phosphorus Magnesium 1.60 L AST 64 H ALT Troponin T C-Reactive Protein Total Protein Albumin 2.6 L Triglycerides LDL Cholesterol Direct HDL Cholesterol Urine WBC (Auto) Salicylates Acetaminophen % CD3 Cells % CD19 Cells Absolute CD19 Count Miscellaneous Test Crossmatch 09/02/18 09/03/18 09/03/18 23:06 03:36 04:25 WBC RBC 2.20 L Hgb 6.7 L Hct 20.9 L RDW 21.1 H Plt Count Lymph % (Auto) [place] % (Auto) Lymph # [place] # Seg Neutrophils % Seg Neuts % (Manual) 90.0 H Lymphocytes % (Manual) 5.0 L Nucleated RBC % Seg Neutrophils # Seg Neutrophils # Man 8.7 H Lymphocytes # (Manual) 0.5 L D-Dimer POC ABG pH POC ABG pCO2 POC ABG pO2 54 L VBG pH Sodium Potassium Chloride Carbon Dioxide BUN Creatinine Glucose POC Glucose 121 H Hemoglobin A1c Lactic Acid Calcium Phosphorus Magnesium AST ALT Troponin T C-Reactive Protein Total Protein Albumin Triglycerides LDL Cholesterol Direct HDL Cholesterol Urine WBC (Auto) Salicylates Acetaminophen % CD3 Cells % CD19 Cells Absolute CD19 Count Miscellaneous Test Crossmatch 09/03/18 09/03/18 09/03/18 04:25 05:45 10:24 WBC RBC Hgb Hct RDW Plt Count Lymph % (Auto) [place] % (Auto) Lymph # [place] # Seg Neutrophils % Seg Neuts % (Manual) Lymphocytes % (Manual) Nucleated RBC % Seg Neutrophils # Seg Neutrophils # Man Lymphocytes # (Manual) D-Dimer POC ABG pH POC ABG pCO2 POC ABG pO2 VBG pH Sodium 158 H Potassium 3.1 L Chloride 120.4 H Carbon Dioxide BUN 25 H Creatinine 0.6 L Glucose 127 H POC Glucose 178 H Hemoglobin A1c Lactic Acid Calcium 7.9 L Phosphorus Magnesium AST ALT Troponin T C-Reactive Protein Total Protein 6.0 L Albumin 2.4 L Triglycerides LDL Cholesterol Direct HDL Cholesterol Urine WBC (Auto) Salicylates Acetaminophen % CD3 Cells % CD19 Cells Absolute CD19 Count Miscellaneous Test Crossmatch See Detail 09/03/18 09/03/18 09/04/18 11:27 23:09 04:42 WBC RBC Hgb Hct RDW Plt Count Lymph % (Auto) [place] % (Auto) Lymph # [place] # Seg Neutrophils % Seg Neuts % (Manual) Lymphocytes % (Manual) Nucleated RBC % Seg Neutrophils # Seg Neutrophils # Man Lymphocytes # (Manual) D-Dimer POC ABG pH 7.293 L POC ABG pCO2 50.2 H POC ABG pO2 VBG pH Sodium Potassium Chloride Carbon Dioxide BUN Creatinine Glucose POC Glucose 107 H 139 H Hemoglobin A1c Lactic Acid Calcium Phosphorus Magnesium AST ALT Troponin T C-Reactive Protein Total Protein Albumin Triglycerides LDL Cholesterol Direct HDL Cholesterol Urine WBC (Auto) Salicylates Acetaminophen % CD3 Cells % CD19 Cells Absolute CD19 Count Miscellaneous Test Crossmatch 09/04/18 09/04/18 09/04/18 05:00 06:30 06:30 WBC RBC 2.32 L Hgb 7.0 L Hct 21.9 L RDW 20.2 H Plt Count Lymph % (Auto) [place] % (Auto) Lymph # [place] # Seg Neutrophils % 80.1 H Seg Neuts % (Manual) Lymphocytes % (Manual) Nucleated RBC % Seg Neutrophils # 8.2 H Seg Neutrophils # Man Lymphocytes # (Manual) D-Dimer POC ABG pH POC ABG pCO2 POC ABG pO2 VBG pH Sodium 150 H D Potassium Chloride 115.9 H Carbon Dioxide BUN 21 H Creatinine 0.6 L Glucose 125 H POC Glucose 154 H Hemoglobin A1c Lactic Acid Calcium 7.9 L Phosphorus Magnesium 1.50 L AST ALT Troponin T C-Reactive Protein Total Protein Albumin Triglycerides LDL Cholesterol Direct HDL Cholesterol Urine WBC (Auto) Salicylates Acetaminophen % CD3 Cells % CD19 Cells Absolute CD19 Count Miscellaneous Test Crossmatch 09/04/18 09/04/18 09/04/18 11:20 11:51 18:27 WBC RBC Hgb Hct RDW Plt Count Lymph % (Auto) [place] % (Auto) Lymph # [place] # Seg Neutrophils % Seg Neuts % (Manual) Lymphocytes % (Manual) Nucleated RBC % Seg Neutrophils # Seg Neutrophils # Man Lymphocytes # (Manual) D-Dimer POC ABG pH 7.244 L POC ABG pCO2 54.2 H POC ABG pO2 62 L VBG pH Sodium Potassium Chloride Carbon Dioxide BUN Creatinine Glucose POC Glucose 156 H 129 H Hemoglobin A1c Lactic Acid Calcium Phosphorus Magnesium AST ALT Troponin T C-Reactive Protein Total Protein Albumin Triglycerides LDL Cholesterol Direct HDL Cholesterol Urine WBC (Auto) Salicylates Acetaminophen % CD3 Cells % CD19 Cells Absolute CD19 Count Miscellaneous Test Crossmatch 09/05/18 09/05/18 09/05/18 03:46 04:00 04:00 WBC RBC 2.13 L Hgb 6.4 L Hct 20.1 L RDW 19.9 H Plt Count 117 L Lymph % (Auto) [place] % (Auto) Lymph # 0.9 L [place] # Seg Neutrophils % 81.7 H Seg Neuts % (Manual) Lymphocytes % (Manual) Nucleated RBC % Seg Neutrophils # Seg Neutrophils # Man Lymphocytes # (Manual) D-Dimer POC ABG pH 7.282 L POC ABG pCO2 57.3 H POC ABG pO2 124 H VBG pH Sodium Potassium Chloride 111.0 H Carbon Dioxide BUN 20 H Creatinine Glucose 130 H POC Glucose Hemoglobin A1c Lactic Acid Calcium 7.8 L Phosphorus Magnesium 1.60 L AST ALT Troponin T C-Reactive Protein Total Protein Albumin Triglycerides LDL Cholesterol Direct HDL Cholesterol Urine WBC (Auto) Salicylates Acetaminophen % CD3 Cells % CD19 Cells Absolute CD19 Count Miscellaneous Test Crossmatch 09/05/18 09/05/18 09/05/18 12:15 17:24 23:24 WBC RBC Hgb Hct RDW Plt Count Lymph % (Auto) [place] % (Auto) Lymph # [place] # Seg Neutrophils % Seg Neuts % (Manual) Lymphocytes % (Manual) Nucleated RBC % Seg Neutrophils # Seg Neutrophils # Man Lymphocytes # (Manual) D-Dimer POC ABG pH POC ABG pCO2 POC ABG pO2 VBG pH Sodium Potassium Chloride Carbon Dioxide BUN Creatinine Glucose POC Glucose 143 H 116 H 116 H Hemoglobin A1c Lactic Acid Calcium Phosphorus Magnesium AST ALT Troponin T C-Reactive Protein Total Protein Albumin Triglycerides LDL Cholesterol Direct HDL Cholesterol Urine WBC (Auto) Salicylates Acetaminophen % CD3 Cells % CD19 Cells Absolute CD19 Count Miscellaneous Test Crossmatch 09/06/18 09/06/18 09/06/18 03:33 04:20 04:20 WBC RBC 2.45 L Hgb 7.4 L Hct 23.0 L RDW 18.1 H Plt Count 99 L Lymph % (Auto) [place] % (Auto) Lymph # 1.0 L [place] # Seg Neutrophils % 78.0 H Seg Neuts % (Manual) Lymphocytes % (Manual) Nucleated RBC % Seg Neutrophils # Seg Neutrophils # Man Lymphocytes # (Manual) D-Dimer POC ABG pH 7.303 L POC ABG pCO2 49.2 H POC ABG pO2 73 L VBG pH Sodium Potassium Chloride 109.3 H Carbon Dioxide BUN 24 H Creatinine Glucose 108 H POC Glucose Hemoglobin A1c Lactic Acid Calcium 8.1 L Phosphorus Magnesium AST ALT Troponin T C-Reactive Protein Total Protein Albumin Triglycerides LDL Cholesterol Direct HDL Cholesterol Urine WBC (Auto) Salicylates Acetaminophen % CD3 Cells % CD19 Cells Absolute CD19 Count Miscellaneous Test Crossmatch 09/06/18 04:55 WBC RBC Hgb Hct RDW Plt Count Lymph % (Auto) [place] % (Auto) Lymph # [place] # Seg Neutrophils % Seg Neuts % (Manual) Lymphocytes % (Manual) Nucleated RBC % Seg Neutrophils # Seg Neutrophils # Man Lymphocytes # (Manual) D-Dimer POC ABG pH POC ABG pCO2 POC ABG pO2 VBG pH Sodium Potassium Chloride Carbon Dioxide BUN Creatinine Glucose POC Glucose 124 H Hemoglobin A1c Lactic Acid Calcium Phosphorus Magnesium AST ALT Troponin T C-Reactive Protein Total Protein Albumin Triglycerides LDL Cholesterol Direct HDL Cholesterol Urine WBC (Auto) Salicylates Acetaminophen % CD3 Cells % CD19 Cells Absolute CD19 Count Miscellaneous Test Crossmatch Allied health notes reviewed: RT
[2018-09-06] MEDS: COREG PO SCH ×2 (10:48→21:50)
[2018-09-06] MEDS: MYCAMINE 100 MG in NACL 0.9% 100 ML IV SCH (10:48)
[2018-09-06] MEDS: PEPCID PO SCH ×2 (10:48→21:50)
--- NOTE | 2018-09-06 11:46 | Progress Note ---
Assessment and Plan Severe sepsis Blood cultures 08/15 - yeast Sputum culture 08/15 - E.coli and Staph aureus Acute renal failure on admission - resolved Acute respiratory failure - intubated and mechanically ventilated Lactic acidosis on admission - resolved Acute transaminitis on admission Hypernatremia -resolved Altered mental status History of COPD New onset cardiomyopathy, LVEF 25-30% this admission Previous echo 03/30/2016 at [facility] revealed normal LVEF Previous stress MPI 03/29/2016 at [facility] revealed no ischemia Abnormal ECG showing LBBB, chronic Recent EGD at [facility] 08/08/2018 revealing irregular Z line, gastritis and small histal hernia Recent colonoscopy at [facility] 08/08/2018 revealing sigmoid polyp, t ransverse colon polyps, inflamed hemorrhoids and diverticulosis Recommend: Continue medical therapy for new onset cardiomyopathy. Supportive cardiac management. Subjective Date of service: 09/06/18 Principal diagnosis: Acute hypoxemic hypercapnic Resp failure; AE-COPD; Acute kidney injury Interval history: Patient is unresponsive, on the vent. No cardiac events overnight. Objective Vital Signs Temp Pulse Pulse Pulse Resp Resp BP 09/06/18 10:48 85 112/56 09/06/18 09:00 93 H 17 104/44 09/06/18 08:46 94 H 18 88/42 09/06/18 08:30 97 H 17 133/61 09/06/18 08:17 104 H 37 H 09/06/18 08:15 104 H 18 156/101 09/06/18 08:00 99.9 F H 89 91 H 19 112/48 09/06/18 07:59 90 36 H 09/06/18 07:50 81 112/48 09/06/18 07:45 78 21 112/48 09/06/18 07:30 81 21 103/45 09/06/18 07:15 86 10 L 112/53 09/06/18 07:00 81 17 117/53 09/06/18 06:48 83 116/50 09/06/18 06:45 86 14 116/50 09/06/18 06:30 81 13 108/51 09/06/18 06:15 82 16 119/50 09/06/18 06:00 87 12 122/52 09/06/18 05:46 83 13 116/53 09/06/18 05:30 81 15 119/46 09/06/18 05:15 82 15 109/55 09/06/18 05:00 81 12 102/51 09/06/18 04:45 79 13 108/55 09/06/18 04:30 73 13 98/47 09/06/18 04:15 76 15 100/49 09/06/18 04:00 76 76 10 L 104/50 09/06/18 03:45 73 13 104/50 09/06/18 03:30 76 11 L 107/51 09/06/18 03:15 76 11 L 101/47 09/06/18 03:14 77 29 H 09/06/18 03:13 99.2 F 09/06/18 03:00 78 9 L 106/48 09/06/18 02:45 77 10 L 100/50 09/06/18 02:30 79 13 96/47 09/06/18 02:15 79 13 99/48 09/06/18 02:00 78 14 94/52 09/06/18 01:45 78 10 L 101/44 09/06/18 01:30 80 13 106/47 09/06/18 01:15 77 13 97/48 09/06/18 01:00 81 13 102/43 09/06/18 00:59 76 24 09/06/18 00:45 77 16 94/45 09/06/18 00:30 76 14 95/44 09/06/18 00:15 75 19 90/52 09/06/18 00:00 94 H 94 H 29 H 90/45 09/05/18 23:50 81 31 H 91/45 09/05/18 23:45 85 27 H 92/46 09/05/18 23:31 91 H 29 H 91/45 09/05/18 23:30 95 H 30 H 91/45 09/05/18 23:25 89 28 H 95/46 09/05/18 23:15 86 31 H 95/46 09/05/18 23:09 99.6 F 09/05/18 23:00 88 28 H 87/44 09/05/18 22:45 88 31 H 98/45 09/05/18 22:30 85 32 H 93/36 09/05/18 22:15 106 H 30 H 84/38 09/05/18 22:00 85 85 30 H 89/43 09/05/18 21:46 97 H 22 101/36 09/05/18 21:30 101 H 19 132/55 09/05/18 21:20 105 H 128/59 09/05/18 21:18 101 H 128/59 09/05/18 21:15 97 H 16 128/59 09/05/18 21:00 85 21 112/48 09/05/18 20:45 81 26 H 108/44 09/05/18 20:30 81 24 108/48 09/05/18 20:15 87 29 H 103/47 09/05/18 20:00 98.1 F 89 91 H 22 105/55 09/05/18 19:58 86 29 H 09/05/18 19:45 86 15 114/48 09/05/18 19:34 87 103/55 09/05/18 19:33 94 H 21 09/05/18 19:30 91 H 18 103/55 09/05/18 19:15 95 H 15 116/56 09/05/18 19:00 90 15 114/60 09/05/18 18:46 89 11 L 107/51 09/05/18 18:30 79 13 107/51 09/05/18 18:15 82 11 L 116/52 09/05/18 18:00 80 12 112/53 09/05/18 17:45 79 20 107/51 09/05/18 17:30 79 10 L 114/57 09/05/18 17:21 100.3 F H 09/05/18 17:15 78 10 L 113/45 09/05/18 17:00 83 12 107/49 09/05/18 16:45 79 25 H 107/55 09/05/18 16:38 75 30 H 09/05/18 16:30 78 30 H 108/47 09/05/18 16:25 80 31 H 09/05/18 16:23 78 108/47 09/05/18 16:15 81 27 H 108/47 09/05/18 16:00 79 92 H 9 L 110/55 09/05/18 15:58 32 H 09/05/18 15:45 81 17 110/55 09/05/18 15:30 87 9 L 107/55 09/05/18 15:15 82 13 102/54 09/05/18 15:00 83 11 L 106/51 09/05/18 14:59 83 102/53 09/05/18 14:58 35 H 09/05/18 14:45 84 22 102/52 09/05/18 14:30 90 12 103/58 09/05/18 14:15 86 11 L 107/51 09/05/18 14:00 96 H 12 97/52 09/05/18 13:54 101.0 F H 93 H 32 H 99/46 09/05/18 13:45 90 13 99/46 09/05/18 13:30 89 22 100/50 09/05/18 13:24 101.3 F H 94 H 90 H 107/54 09/05/18 13:15 88 16 107/54 09/05/18 13:00 89 14 104/48 09/05/18 12:54 101.3 F H 91 H 35 H 104/48 09/05/18 12:46 95 H 18 94/42 09/05/18 12:30 95 H 21 98/35 09/05/18 12:24 101.4 F H 86 34 H 106/52 09/05/18 12:15 101 H 17 90/37 09/05/18 12:00 101.5 F H 91 H 98 H 14 93/37 09/05/18 11:54 100.7 F H 93 H 36 H 97/43 09/05/18 11:50 107 H 18 91/44 Pulse Ox 09/06/18 10:48 09/06/18 09:00 95 09/06/18 08:46 96 09/06/18 08:30 91 09/06/18 08:17 09/06/18 08:15 93 09/06/18 08:00 99 09/06/18 07:59 09/06/18 07:50 100 09/06/18 07:45 94 09/06/18 07:30 95 09/06/18 07:15 92 09/06/18 07:00 92 09/06/18 06:48 09/06/18 06:45 93 09/06/18 06:30 94 09/06/18 06:15 93 09/06/18 06:00 93 09/06/18 05:46 92 09/06/18 05:30 90 09/06/18 05:15 82 L 09/06/18 05:00 85 09/06/18 04:45 81 L 09/06/18 04:30 89 09/06/18 04:15 95 09/06/18 04:00 93 09/06/18 03:45 96 09/06/18 03:30 95 09/06/18 03:15 96 09/06/18 03:14 09/06/18 03:13 09/06/18 03:00 97 09/06/18 02:45 98 09/06/18 02:30 99 09/06/18 02:15 98 09/06/18 02:00 98 09/06/18 01:45 96 09/06/18 01:30 98 09/06/18 01:15 97 09/06/18 01:00 95 09/06/18 00:59 09/06/18 00:45 93 09/06/18 00:30 94 09/06/18 00:15 98 09/06/18 00:00 100 09/05/18 23:50 100 09/05/18 23:45 100 09/05/18 23:31 100 09/05/18 23:30 100 09/05/18 23:25 100 09/05/18 23:15 100 09/05/18 23:09 09/05/18 23:00 100 09/05/18 22:45 100 09/05/18 22:30 100 09/05/18 22:15 100 09/05/18 22:00 100 09/05/18 21:46 100 09/05/18 21:30 92 09/05/18 21:20 09/05/18 21:18 09/05/18 21:15 92 09/05/18 21:00 98 09/05/18 20:45 97 09/05/18 20:30 96 09/05/18 20:15 97 09/05/18 20:00 94 09/05/18 19:58 09/05/18 19:45 96 09/05/18 19:34 94 09/05/18 19:33 09/05/18 19:30 87 09/05/18 19:15 84 09/05/18 19:00 82 L 09/05/18 18:46 79 L 09/05/18 18:30 96 09/05/18 18:15 97 09/05/18 18:00 97 09/05/18 17:45 96 09/05/18 17:30 95 09/05/18 17:21 09/05/18 17:15 95 09/05/18 17:00 96 09/05/18 16:45 96 09/05/18 16:38 09/05/18 16:30 100 09/05/18 16:25 09/05/18 16:23 97 09/05/18 16:15 99 09/05/18 16:00 97 09/05/18 15:58 09/05/18 15:45 98 09/05/18 15:30 97 09/05/18 15:15 97 09/05/18 15:00 98 09/05/18 14:59 09/05/18 14:58 09/05/18 14:45 97 09/05/18 14:30 98 09/05/18 14:15 98 09/05/18 14:00 98 09/05/18 13:54 98 09/05/18 13:45 97 09/05/18 13:30 96 09/05/18 13:24 96 09/05/18 13:15 97 09/05/18 13:00 97 09/05/18 12:54 96 09/05/18 12:46 97 09/05/18 12:30 96 09/05/18 12:24 97 09/05/18 12:15 97 09/05/18 12:00 97 09/05/18 11:54 97 09/05/18 11:50 97 - Physical Examination General: Other (unresponsive, on the vent) Cardiac: Positive: Reg Rate and Rhythm - Labs and Meds CBC 09/06/18 Range/Units 04:20 WBC 6.1 (4.5-11.0) K/mm3 RBC 2.45 L (3.65-5.03) M/mm3 Hgb 7.4 L (10.1-14.3) gm/dl Hct 23.0 L (30.3-42.9) % Plt Count 99 L (140-440) K/mm3 Lymph # 1.0 L (1.2-5.4) K/mm3 Avery # 0.4 (0.0-0.8) K/mm3 Eos # 0.0 (0.0-0.4) K/mm3 Baso # 0.0 (0.0-0.1) K/mm3 Comprehensive Metabolic Panel 09/06/18 Range/Units 04:20 Sodium 144 (137-145) mmol/L Potassium 3.7 (3.6-5.0) mmol/L Chloride 109.3 H (98-107) mmol/L Carbon Dioxide 26 (22-30) mmol/L BUN 24 H (7-17) mg/dL Creatinine 0.9 (0.7-1.2) mg/dL Glucose 108 H (65-100) mg/dL Calcium 8.1 L (8.4-10.2) mg/dL - Allied health notes Allied health notes reviewed: RT
[2018-09-06] MEDS: DILAUDID PO SCH ×2 (12:00→19:12)
[2018-09-06] MEDS ORDERED: ARIXTRA SUB-Q SCH (12:00)
[2018-09-06] MEDS ORDERED: ARIXTRA SUB-Q NR (12:00)
--- NOTE | 2018-09-06 14:22 | Progress Note ---
Assessment and Plan Cultures: 08/15/2018 blood culture: Camryn glabrata 1 of 4 08/15/2018 sputum culture: MSSA and Escherichia coli, wade susceptible 08/18/2018 blood culture: no growth 08/18/2018 urine culture: neg 08/22/2018 blood culture: no growth 08/25/2018 blood culture: no growth 09/02/2018 BAL cultures: resp almaz. Fungal and AFB pending: No growth thus far. 09/04/2018 blood culture: no growth thus far 09/04/2018 trach aspirate: no growth A/P: 68-year-old female with COPD, arthritis, history of multiple spinal surgeries was brought to the emergency room on 08/15/2018 with altered mental status: 1) Sepsis with septic shock: resolved. 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 Patient without any history of indwelling PICC line, TPN or immunocompromised status. reported severe explosive diarrhea, N/V before admission after taken 4 days of amoxicillin for dental implant on 07/29/2018 and had a EGD / colonoscopy on 08/08/2018 at [place] [address] Alcantara. I reviewed report - mild chronic gastritis, focal intestinal metaplasia, squamocolumnar mucosa with mild reflux-type changes, and tubular adenoma. -s/p fluconazole 800 mg loading dose then micafungin, s/p amphotericin D6 on 08/26 -serum Crypto negative. -08/15/2018 blood culture: Camryn glabrata -08/18/2018 blood culture: no growth today -CTA chest showed limited study due to respiratory motion artifact. No evidence of pulmonary embolism. Abnormal bilateral lung consolidation which may represent pulmonary edema or pneumonia. Mild cardiomegaly. Indeterminant mediastinal lymph nodes. -CT abdomen showed extensive bilateral lower lobe pulmonary infiltrates, rectal tube and Dodge catheter noted. NG tube at gastric antrum. Left hip prosthesis Extensive degenerative changes noted lumbar spine -TTE EF 25-30% no vegetations -HIV neg/ CD4 1004 -reviewed CT chest abd done 01/05/2019 showed cholecystectomy, mild fatty liver, postoperative changes of lumbar laminectomy with non specific fluid, 9 mm LLL pulmonary nodule which was compared to previous CT and was stable. -CRP 10-->5 3) Acute renal failure: On admission: Nephrology following. 4) Acute respiratory failure: Back on the vent. Recently completed pneumonia treatment. WBC up and low grade fever. Underwent bronch + BAL on 09/02/2018. Cultures with no growth thus far. On abx. 5) Right maxillary sinusitis: received empiric abx. 6) Acute encephalopathy: Likely multifactorial. CT head unremarkable for acute intracranial process. Improving. 7) Cardiomyopathy, LVEF 25-30% this admission. 8) H/O left hip prosthesis ? XR no effusion. CT no enhancement 9) Left leg DVT: on anticoagulation. Recs: continue IV Meropenem D3 discontinued Vancomycin continue IV Micafungin for now MD [facility] C: [phone] O: [phone] F: [phone] Subjective Date of service: 09/06/18 Principal diagnosis: Acute hypoxemic hypercapnic Resp failure; AE-COPD; Acute kidney injury Interval history: Low grade temp +. WBC improved. Remains intubated, on the vent. Objective - Exam Narrative Exam: Physical Exam: Constitutional: sedated, intubated Head, Ears, Nose: Normocephalic, atraumatic. External ears, nose normal Eyes: Conjunctivae/corneas clear. No icterus. No ptosis. Neck: Supple, no meningeal signs Oral: intubated Cardiovascular: S1, S2 normal. Respiratory: coarse breath sounds b/l, equal bilaterally GI: Soft, bowel sounds normal. No peritoneal signs. Rectal tube + Musculoskeletal: Left leg edema. Skin: No rash or abscess Hem/Lymphatic: No palpable cervical or supraclavicular nodes. No lymphangitis Psych: no agitation Neurological: sedated, intubated - Constitutional Vitals: Vital Signs Temp Pulse Resp BP Pulse Ox 100.3 F H 78 23 113/52 97 09/06/18 12:00 09/06/18 14:00 09/06/18 14:00 09/06/18 14:00 09/06/18 14:00 Temperature -Last 24 Hours Temperature 100.3 F Temperature 100.3 F Temperature 99.9 F Temperature 99.2 F Temperature 99.6 F Temperature 98.1 F Temperature 100.3 F - Labs CBC & Chem 7: 09/06/18 04:20 09/06/18 04:20 Labs: Abnormal lab results 09/05/18 09/05/18 09/06/18 Range/Units 17:24 23:24 03:33 RBC (3.65-5.03) M/mm3 Hgb (10.1-14.3) gm/dl Hct (30.3-42.9) % RDW (13.2-15.2) % Plt Count (140-440) K/mm3 Lymph # (1.2-5.4) K/mm3 Seg Neutrophils % (40.0-70.0) % POC ABG pH 7.303 L (7.35-7.45) POC ABG pCO2 49.2 H (35-45) POC ABG pO2 73 L (80-105) Chloride (98-107) mmol/L BUN (7-17) mg/dL Glucose (65-100) mg/dL POC Glucose 116 H 116 H (70-105) Calcium (8.4-10.2) mg/dL 09/06/18 09/06/18 09/06/18 Range/Units 04:20 04:20 04:55 RBC 2.45 L (3.65-5.03) M/mm3 Hgb 7.4 L (10.1-14.3) gm/dl Hct 23.0 L (30.3-42.9) % RDW 18.1 H (13.2-15.2) % Plt Count 99 L (140-440) K/mm3 Lymph # 1.0 L (1.2-5.4) K/mm3 Seg Neutrophils % 78.0 H (40.0-70.0) % POC ABG pH (7.35-7.45) POC ABG pCO2 (35-45) POC ABG pO2 (80-105) Chloride 109.3 H (98-107) mmol/L BUN 24 H (7-17) mg/dL Glucose 108 H (65-100) mg/dL POC Glucose 124 H (70-105) Calcium 8.1 L (8.4-10.2) mg/dL 09/06/18 Range/Units 11:29 RBC (3.65-5.03) M/mm3 Hgb (10.1-14.3) gm/dl Hct (30.3-42.9) % RDW (13.2-15.2) % Plt Count (140-440) K/mm3 Lymph # (1.2-5.4) K/mm3 Seg Neutrophils % (40.0-70.0) % POC ABG pH (7.35-7.45) POC ABG pCO2 (35-45) POC ABG pO2 (80-105) Chloride (98-107) mmol/L BUN (7-17) mg/dL Glucose (65-100) mg/dL POC Glucose 149 H (70-105) Calcium (8.4-10.2) mg/dL
[2018-09-06] MEDS: DILAUDID IV PRN (15:35)
--- NOTE | 2018-09-06 17:14 | Event Note ---
Date: 09/06/18 [id number]
[2018-09-06] MEDS ORDERED: VERSED IV ONE (17:59)
--- NOTE | 2018-09-06 18:36 | XRay Report ---
PROCEDURE: XR CHEST 1V AP TECHNIQUE: Single AP chest HISTORY: acute hypoxic respiratory failure COMPARISONS: September 04. FINDINGS: ET tube and NG tube remain in place. Right-sided PICC line in the SVC. Diffuse reticulonodular pattern in the lungs bilaterally, not significantly changed since the prior e xamination. Cardiac silhouette at the upper limits of normal. No pneumothorax. Improvement in right basilar confluent airspace disease. IMPRESSION: . Improvement in right basilar confluent airspace disease. No other significant interval change. This document is electronically signed by Conner Dickson MD., September 06 2018 06:34:17 PM ET
[2018-09-06] MEDS: SENOKOT S PO SCH ×2 (19:19→21:51)
--- NOTE | 2018-09-06 19:34 | Cat Scan Report ---
PROCEDURE: CT ANGIOGRAM OF THE CHEST FOR PULMONARY EMBOLISM TECHNIQUE: Computerized axial tomographic angiography of the chest and pulmonary arteries was perfor med after the IV injection of iodinated nonionic contrast. The image data was postprocessed using max imum intensity projection (MIP) and 2-dimensional multiplanar reformatted (MPR) techniques. The exami nation is specifically tailored to the evaluation of the pulmonary arteries per clinical request. Au tomated exposure control, adjustment of mA and/or kV according to patient size, or iterative reconstr uction dose optimization techniques were utilized. CPT G9637, 85051 HISTORY: Shortness of breath R06.02, chest pain unspecified R07.9 , COMPARISONS: 08/18/2018 . FINDINGS: Endotracheal tube tip projects 2.5 cm superior to the amando. Right PICC line tip is in the cavoatria l junction. Nasogastric tube tip is in the proximal stomach. Heart and pericardium: No pericardial effusion or thickening. Thoracic aorta: No aneurysm or dissection. Pulmonary vasculature: Mildly limited evaluation due to respiratory motion artifact. No pulmonary emb leroy are visible. Lymph nodes: Prominent right and left paratracheal lymph nodes are present, measuring up to 15 mm in short axis, which appear increased in size. Mild right hilar adenopathy Lungs: There are COPD changes. There are increased bilateral airspace opacities, with diffuse ground glass airspace opacification and septal thickening. More confluent airspace opacity is seen in the tamiko ng bases. Findings could be related to diffuse pulmonary edema. Cannot fully exclude superimposed inf ectious infiltrates. Pleural space: There are bilateral moderate-sized layering pleural effusions, increased in size comp ared to the prior study. No pneumothorax is seen. Musculoskeletal structures: There are degenerative disc changes of the thoracolumbar spine. Upper abdominal structures: There has been cholecystectomy. IMPRESSION: No evidence of pulmonary emboli. Mediastinal and hilar adenopathy is increased in size. Bilateral pulmonary airspace opacities as described above may be related to diffuse pulmonary edema. Cannot exclude superimposed infectious infiltrates. Bilateral pleural effusions This document is electronically signed by Demi Miles MD., September 06 2018 07:32:57 PM ET
--- NOTE | 2018-09-06 21:30 | Progress Note ---
Assessment and Plan 1. Acute kidney injury: Vasomotor CHANDANA, likely ATN. Creatinine level is better. Monitor renal function. Avoid nephrotoxic agents. Meds dosage based on GFR. 2. FEN: Hypernatremia, improved with water flushes. Hypokalemia, K is better. Metabolic acidosis, improved. Replete Mg. 3. Bladder retention: S/p manrique catheter. 4. Acute encephalopathy. 5. Respiratory failure: On vent. 6. Sepsis: Followed by ID. 7. Dilated cardiomyopathy with systolic LV dysfunction. 8. Anemia: PRBC. 9. Left LE DVT. D/w her at the bedside. Will sign off and see patient if needed. Subjective Date of service: 09/06/18 Principal diagnosis: Acute hypoxemic hypercapnic Resp failure; AE-COPD; Acute kidney injury Interval history: Patient was seen and examined at the bedside. Objective - Vital Signs Vital signs: Vital Signs - 12hr 09/06/18 09/06/18 09/06/18 09:30 09:45 10:00 Temperature Pulse Rate 86 89 84 Pulse Rate [ Anterior Bilateral Throughout] Pulse Rate [ Apical] Respiratory 26 H 15 19 Rate Respiratory Rate [Anterior Bilateral Throughout] Blood Pressure 107/48 115/59 107/51 O2 Sat by Pulse 94 95 96 Oximetry 09/06/18 09/06/18 09/06/18 10:15 10:30 10:45 Temperature Pulse Rate 90 86 84 Pulse Rate [ Anterior Bilateral Throughout] Pulse Rate [ Apical] Respiratory 18 20 16 Rate Respiratory Rate [Anterior Bilateral Throughout] Blood Pressure 107/55 117/57 112/56 O2 Sat by Pulse 96 96 94 Oximetry 09/06/18 09/06/18 09/06/18 10:48 11:00 11:15 Temperature Pulse Rate 85 86 85 Pulse Rate [ Anterior Bilateral Throughout] Pulse Rate [ Apical] Respiratory 20 24 Rate Respiratory Rate [Anterior Bilateral Throughout] Blood Pressure 112/56 118/53 115/50 O2 Sat by Pulse 94 96 Oximetry 09/06/18 09/06/18 09/06/18 11:30 11:45 12:00 Temperature 100.3 F H Pulse Rate 83 76 84 Pulse Rate [ Anterior Bilateral Throughout] Pulse Rate [ 77 Apical] Respiratory 27 H 15 21 Rate Respiratory Rate [Anterior Bilateral Throughout] Blood Pressure 108/48 102/50 100/50 O2 Sat by Pulse 96 96 97 Oximetry 09/06/18 09/06/18 09/06/18 12:15 12:30 12:40 Temperature Pulse Rate 78 92 H 78 Pulse Rate [ Anterior Bilateral Throughout] Pulse Rate [ Apical] Respiratory 26 H 30 H Rate Respiratory Rate [Anterior Bilateral Throughout] Blood Pressure 100/52 100/52 107/62 O2 Sat by Pulse 97 96 96 Oximetry 09/06/18 09/06/18 09/06/18 12:45 13:00 13:15 Temperature Pulse Rate 81 76 80 Pulse Rate [ Anterior Bilateral Throughout] Pulse Rate [ Apical] Respiratory 25 H 30 H 30 H Rate Respiratory Rate [Anterior Bilateral Throughout] Blood Pressure 108/51 108/51 96/46 O2 Sat by Pulse 95 96 97 Oximetry 09/06/18 09/06/18 09/06/18 13:30 13:45 13:51 Temperature Pulse Rate 76 78 77 Pulse Rate [ Anterior Bilateral Throughout] Pulse Rate [ Apical] Respiratory 34 H 32 H Rate Respiratory Rate [Anterior Bilateral Throughout] Blood Pressure 105/48 104/47 104/47 O2 Sat by Pulse 98 98 Oximetry 09/06/18 09/06/18 09/06/18 14:00 14:15 14:30 Temperature Pulse Rate 78 76 77 Pulse Rate [ Anterior Bilateral Throughout] Pulse Rate [ Apical] Respiratory 23 22 12 Rate Respiratory Rate [Anterior Bilateral Throughout] Blood Pressure 113/52 114/51 115/44 O2 Sat by Pulse 97 98 96 Oximetry 09/06/18 09/06/18 09/06/18 14:45 15:00 15:15 Temperature Pulse Rate 77 77 91 H Pulse Rate [ Anterior Bilateral Throughout] Pulse Rate [ Apical] Respiratory 19 19 10 L Rate Respiratory Rate [Anterior Bilateral Throughout] Blood Pressure 116/41 118/65 118/65 O2 Sat by Pulse 97 96 79 L Oximetry 09/06/18 09/06/18 09/06/18 15:31 15:35 15:45 Temperature Pulse Rate 99 H 85 Pulse Rate [ Anterior Bilateral Throughout] Pulse Rate [ Apical] Respiratory 20 36 H 15 Rate Respiratory Rate [Anterior Bilateral Throughout] Blood Pressure 123/84 123/84 O2 Sat by Pulse 98 100 Oximetry 09/06/18 09/06/18 09/06/18 15:49 16:00 16:15 Temperature 100.5 F H Pulse Rate 81 88 Pulse Rate [ 85 Anterior Bilateral Throughout] Pulse Rate [ 98 H Apical] Respiratory 30 H 12 Rate Respiratory 35 H Rate [Anterior Bilateral Throughout] Blood Pressure 124/67 129/60 O2 Sat by Pulse 99 90 Oximetry 09/06/18 09/06/18 09/06/18 16:31 16:45 17:01 Temperature Pulse Rate 93 H 84 84 Pulse Rate [ Anterior Bilateral Throughout] Pulse Rate [ Apical] Respiratory 16 21 24 Rate Respiratory Rate [Anterior Bilateral Throughout] Blood Pressure 144/66 144/66 134/62 O2 Sat by Pulse 99 99 99 Oximetry 09/06/18 09/06/18 09/06/18 17:09 17:15 17:30 Temperature Pulse Rate 85 85 82 Pulse Rate [ Anterior Bilateral Throughout] Pulse Rate [ Apical] Respiratory 20 14 Rate Respiratory Rate [Anterior Bilateral Throughout] Blood Pressure 128/61 129/56 O2 Sat by Pulse 95 99 99 Oximetry 09/06/18 09/06/18 09/06/18 17:45 18:01 18:15 Temperature Pulse Rate 99 H 102 H 94 H Pulse Rate [ Anterior Bilateral Throughout] Pulse Rate [ Apical] Respiratory 15 12 18 Rate Respiratory Rate [Anterior Bilateral Throughout] Blood Pressure 129/56 149/68 149/68 O2 Sat by Pulse 90 91 98 Oximetry 09/06/18 09/06/18 09/06/18 18:49 19:01 19:15 Temperature Pulse Rate 81 78 76 Pulse Rate [ Anterior Bilateral Throughout] Pulse Rate [ Apical] Respiratory 21 27 H 22 Rate Respiratory Rate [Anterior Bilateral Throughout] Blood Pressure 103/38 102/44 O2 Sat by Pulse 100 99 99 Oximetry 09/06/18 09/06/18 09/06/18 19:26 19:30 19:45 Temperature Pulse Rate 76 86 73 Pulse Rate [ Anterior Bilateral Throughout] Pulse Rate [ Apical] Respiratory 29 H 19 Rate Respiratory Rate [Anterior Bilateral Throughout] Blood Pressure 102/44 97/42 88/43 O2 Sat by Pulse 99 100 100 Oximetry 09/06/18 09/06/18 09/06/18 20:00 20:15 20:30 Temperature 99.9 F H Pulse Rate 71 74 68 Pulse Rate [ Anterior Bilateral Throughout] Pulse Rate [ 78 Apical] Respiratory 30 H 30 H 30 H Rate Respiratory Rate [Anterior Bilateral Throughout] Blood Pressure 88/43 105/41 103/48 O2 Sat by Pulse 100 100 100 Oximetry 09/06/18 09/06/18 09/06/18 20:45 21:01 21:15 Temperature Pulse Rate 70 76 77 Pulse Rate [ Anterior Bilateral Throughout] Pulse Rate [ Apical] Respiratory 30 H 13 15 Rate Respiratory Rate [Anterior Bilateral Throughout] Blood Pressure 99/46 93/53 93/53 O2 Sat by Pulse 100 100 100 Oximetry - General Appearance General appearance: well-developed, appears stated age, sedated on ventilator, intubated EENT: ATNC Neck: supple Respiratory: Present: Other (coarse breath sounds) Cardiology: regular, S1S2, no murmurs Gastrointestinal: normoactive bowel sounds, no tenderness, no distended Integumentary: no rash Neurologic: obtunded Musculoskeletal: other (b/l LE edema noted) - Lab 09/06/18 04:20 09/06/18 04:20 Most recent lab results Calcium 8.1 mg/dL (8.4-10.2) L 09/06/18 04:20 Phosphorus 3.00 mg/dL (2.5-4.5) 09/06/18 04:20 Magnesium 1.80 mg/dL (1.7-2.3) 09/06/18 04:20 Medications & Allergies - Medications Allergies/Adverse Reactions: Allergies No Known Allergies Allergy (Unverified 08/15/18 16:49) Home Medications: Home Medications Medication Instructions Recorded Confirmed Last Taken Type Carvedilol 6.25 mg PO BID 08/15/18 08/15/18 Unknown History DULoxetine 60 mg PO QDAY 08/15/18 08/15/18 Unknown History Gabapentin 600 mg PO Q6HR PRN 08/15/18 08/15/18 Unknown History Methylphenidate 5 mg PO TID 08/15/18 08/15/18 Unknown History Morphabond ER 60 mg PO Q12HR 08/15/18 08/15/18 Unknown History Pravastatin Sodium 10 mg PO QDAY 08/15/18 08/15/18 Unknown History Tizanidine HCl 4 mg PO Q12HR 08/15/18 08/15/18 Unknown History oxyCODONE /ACETAMINOPHEN 7.5 - 325 mg PO Q8HR 08/15/18 08/15/18 Unknown History ALBUTEROL Inhaler(NF) 90 mcg IH TID 08/29/18 08/29/18 Unknown History Omeprazole-Bicarb 40-1,100 Cap 40 mg PO DAILY 08/29/18 08/29/18 Unknown History Active Medications: Generic Name Dose Route Start Last Admin Trade Name Freq PRN Reason Stop Dose Admin Acetaminophen 650 mg 08/15/18 22:12 09/05/18 11:33 Tylenol PO 650 mg Q4H PRN Administration Pain MILD(1-3)/Fever >100.5/MONDRAGON Albuterol 2.5 mg 08/17/18 17:00 Proventil IH Q3HRT PRN Shortness Of Breath Albuterol/Ipratropium 1 ampul 08/20/18 14:00 09/06/18 19:56 Duoneb *Not For Prn Use* IH 1 ampul Q6HRT L[facility]AR Administration Lipase/Protease/Amylase 1 each 09/02/18 10:40 Pancresam Elizabeth 10,500 Unit FEEDTUBE PRN PRN For Clogged Feeding Tube Arformoterol Tartrate 15 mcg 08/18/18 20:00 09/06/18 19:56 Brovana Nebu IH 15 mcg Q12HRT L[facility]AR Administration Budesonide 0.5 mg 08/18/18 20:00 09/06/18 19:56 Pulmicort IH 0.5 mg Q12HRT L[facility]AR Administration Carvedilol 3.125 mg 08/26/18 15:19 09/06/18 10:48 Coreg PO 3.125 mg BID LAMAR Administration Famotidine 20 mg 09/05/18 10:00 09/06/18 10:48 Pepcid PO 20 mg BID LAMAR Administration Fondaparinux 7.5 mg 09/07/18 10:00 Arixtra SUB-Q DAILY L[facility]AR Hydralazine HCl 10 mg 08/19/18 13:59 08/29/18 14:22 Apresoline IV 10 mg Q3H PRN Administration Hydralazine HCl 25 mg 09/01/18 14:00 09/06/18 13:51 Apresoline PO 25 mg Q8HR L[facility]AR Administration Hydromorphone HCl 1 mg 09/06/18 10:38 09/06/18 15:35 Dilaudid IV 1 mg Q4H PRN Administration Pain , Severe (7-10) Hydromorphone HCl 2 mg 09/06/18 12:00 09/06/18 19:12 Dilaudid PO 2 mg Q6HR L[facility]AR Administration Hydrophilic Ointment 1 applic 08/15/18 21:55 09/01/18 09:07 Vaseline Lip Therapy TP 1 applic Q2HR PRN Administration Dry Lips Fentanyl Citrate 2,000 mcg in 100 mls @ 4.765 mls/hr 09/02/18 11:00 09/06/18 13:55 Fentanyl Drip Premix IV 4 mcg/kg/hr TITR LAMAR 19.06 mls/hr Administration Protocol 1 MCG/KG/HR Micafungin Sodium 100 mg/ 100 mls @ 100 mls/hr 09/02/18 15:00 09/06/18 10:48 Sodium Chloride IV 100 mls/hr QDAY [facility] Administration Protocol Meropenem 1,000 mg/ Sodium 100 mls @ 100 mls/hr 09/04/18 18:00 09/06/18 19:13 Chloride IV 100 mls/hr Q8H [facility] Administration Protocol Insulin Human Lispro 0 unit 09/04/18 18:00 09/06/18 19:20 Humalog SUB-Q Not Given Q6HR [facility] Protocol Metoclopramide HCl 5 mg 08/15/18 22:50 Reglan IV Q6H PRN Nausea And Vomiting Ondansetron HCl 4 mg 08/15/18 22:12 08/31/18 17:52 Zofran IV 4 mg Q8H PRN Administration Nausea And Vomiting Quetiapine Fumarate 200 mg 09/04/18 15:00 09/06/18 10:48 Seroquel PO 200 mg BID [facility]AR Administration Senna/Docusate Sodium 2 tab 09/06/18 11:00 09/06/18 19:19 Senokot S PO Not Given BID [facility] Simple Syrup 15 ml 09/02/18 11:24 Simple Syrup FEEDTUBE PRN PRN Hypoglycemia Simple Syrup 30 ml 09/02/18 11:24 Simple Syrup FEEDTUBE PRN PRN Hypoglycemia Sodium Bicarbonate 325 mg 09/02/18 10:40 Sodium Bicarbonate FEEDTUBE PRN PRN For Clogged Feeding Tube Sodium Chloride 10 ml 08/15/18 22:12 09/04/18 09:35 Sodium Chloride Flush Syringe 10 Ml IV 10 ml PRN PRN Administration LINE FLUSH
[2018-09-06] MEDS: SODIUM CHLORIDE FLUSH SYRINGE 10 ML IV PRN (21:51)
[2018-09-07] MEDS: DILAUDID PO SCH ×4 (01:00→17:39)
[2018-09-07] MEDS: MERREM 1,000 MG in NACL 0.9% 100 ML IV SCH ×2 (01:55→09:54)
[2018-09-07] MEDS: DUONEB *Not for PRN Use IH SCH ×4 (02:34→19:25)
[2018-09-07] MEDS: fentaNYL DRIP Premix 2,000 MCG/100 ML BAG IV SCH ×3 (03:20→14:01)
--- NOTE | 2018-09-07 04:58 | Consultation ---
REASON FOR CONSULTATION: Left leg DVT, thrombocytopenia and anemia. HISTORY OF PRESENT ILLNESS: I saw the patient, a 68-year-old female in the ICU. The patient was intubated. The patient has a history of COPD, arthritis, multiple surgeries including C-spine and lumbar spine surgery. The patient was brought to hospital because of altered mentation and decreased response by the . The patient has been in the hospital since 08/15/2018. At one time, BP was found to be low. During this admission, the patient has been seen by Pulmonary team and Nephrology team, Cardiology team, General Surgery, Vascular Surgery, Infectious Disease. She is on the vent. Her hemoglobin was low during this admission. Transfusion has been given. Platelets are going down. Heparin was stopped. Argatroban has been given. Left leg DVT was found. CT chest was done. There was no PE. I have been asked to evaluate the patient in view of these findings. The patient has prolonged hospitalization with multiple issues includes Camryn fungemia, renal failure, respiratory failure, sinusitis, encephalopathy, cardiomyopathy. REVIEW OF SYSTEMS: Not reliable. The patient has a rectal tube, has a Dodge catheter. I discussed with nurse. PAST MEDICAL HISTORY: Includes as above. PAST SURGICAL HISTORY: Neck surgery. SOCIAL HISTORY: , lives with . FAMILY HISTORY: Noncontributory. ALLERGIES: None. PRESENT MEDICATIONS: Includes albuterol, lipase, Pepcid, fentanyl, fondaparinux 7.5 mg, hydralazine, Dilaudid. PHYSICAL EXAMINATION: VITAL SIGNS: Temperature 99.9, pulse 72, respirations 30, BP 88/43. HEENT: Pallor present. No icterus. NECK: No neck lymph nodes. HEART: S1, S2. LUNGS: Decreased air entry. ABDOMEN: Soft. EXTREMITIES: Left leg swelling present, intubated, not responding. LABORATORY DATA: White cell 6.1, hemoglobin 7.4, MCV 94, platelet 99. Lowest hemoglobin was 6.4 on 09/05/2018, platelet at admission was 245. It had gone down to 106 and then recovered and now is 99. D-dimers were elevated at admission on 08/15/2018, potassium 3.7, creatinine 0.9, calcium 8.1. RADIOLOGY: CTA chest, no PE; leg Doppler posterior tibial and peroneal bilaterally. ASSESSMENT AND PLAN: 1. Bilateral posterior tibial and peroneal vein deep venous thrombosis, left leg edema. 2. Thrombocytopenia. The patient was on heparin-based treatment. Now it is fondaparinux. 3. Anemia. At admission, hemoglobin was normal. The patient received blood transfusion. We will do deficiency workup. There may be a bleeding component. 4. Pulmonary embolism study is negative. 5. Camryn infection. 6. Chronic obstructive pulmonary disease. 7. Thrombocytopenia may be medication related. Heparin antibodies has been ordered. 8. History of renal failure. Nephrology following. 9. Maxillary sinusitis. 10. Respiratory failure, on ventilator. 11. History of cardiomyopathy. 12. We will follow the trend of platelets. 13. The patient has Dodge catheter. 14. Encephalopathy. 15. The patient ____. 16. Because of anemia, there is a question if inferior vena cava filter is better to prevent more pulmonary complications. 17. I will discuss with other team members. JOB# [id number] NM/NTS
--- NOTE | 2018-09-07 05:03 | Hem/Onc Progress Note ---
Assessment and Plan 1. Bilateral posterior tibial and peroneal vein deep venous thrombosis, left leg edema. 2. Thrombocytopenia. The patient was on heparin-based treatment. Now it is fondaparinux. 3. Anemia. At admission, hemoglobin was normal. The patient received blood transfusion. We will do deficiency workup. There may be a bleeding component. 4. Pulmonary embolism study is negative. 5. Camryn infection. 6. Chronic obstructive pulmonary disease. 7. Thrombocytopenia may be medication related. Heparin antibodies has been ordered. ? micafungin 8. History of renal failure. Nephrology following. 9. Maxillary sinusitis. 10. Respiratory failure, on ventilator. 11. History of cardiomyopathy. 12. We will follow the trend of platelets. 13. The patient has Dodge catheter. 14. Encephalopathy. 15. Because of anemia - low plt, there is a question if inferior vena cava filter is better to prevent more pulmonary complications. 16. I will discuss with other team members. - Patient Problems (1) Thrombocytopenia Current Visit: Yes Status: Acute Plan to address problem: likely meds related (2) DVT (deep venous thrombosis) Current Visit: Yes Status: Acute Plan to address problem: on fondaperinox - ? option of IVC filter (3) Anemia Current Visit: Yes Status: Acute Plan to address problem: IV iron trial pt has had PRBC Subjective Date of service: 09/07/18 Objective - Constitutional Vitals: Last Vital Signs Temp 99.7 F H 09/07/18 00:00 Pulse 73 09/07/18 04:00 Resp 15 09/07/18 03:15 BP 125/89 09/07/18 04:00 Pulse Ox 99 09/07/18 04:00 General appearance: no acute distress Performance status: 4-completely disabled - EENT ENT: other (intubated) Lymph node exam: negative cervical - Respiratory Respiratory effort: Positive: normal Respiratory: bilateral: diminished (effort) - Cardiovascular Heart Sounds: Present: S1 & S2 Extremity abnormal: edema - Gastrointestinal General gastrointestinal: Present: soft Rectal Exam: deferred - Genitourinary Female genitourinary: Present: deferred - Integumentary Integumentary: warm - Musculoskeletal Musculoskeletal: generalized weakness - Neurologic Neurologic: other (on vent) - Labs Lab Results: Laboratory Results - last 24 hr 09/06/18 09/06/18 09/06/18 04:20 04:55 11:29 Sodium 144 Potassium 3.7 Chloride 109.3 H Carbon Dioxide 26 Anion Gap 12 BUN 24 H Creatinine 0.9 Estimated GFR > 60 BUN/Creatinine Ratio 27 Glucose 108 H POC Glucose 124 H 149 H Calcium 8.1 L Phosphorus 3.00 Magnesium 1.80 Vancomycin Trough 09/06/18 09/06/18 09/06/18 14:40 17:43 20:08 Sodium Potassium Chloride Carbon Dioxide Anion Gap BUN Creatinine Estimated GFR BUN/Creatinine Ratio Glucose POC Glucose 138 H 118 H Calcium Phosphorus Magnesium Vancomycin Trough 28.6 H 09/07/18 00:39 Sodium Potassium Chloride Carbon Dioxide Anion Gap BUN Creatinine Estimated GFR BUN/Creatinine Ratio Glucose POC Glucose 131 H Calcium Phosphorus Magnesium Vancomycin Trough Medications & Allergies - Medications Allergies/Adverse Reactions: Allergies No Known Allergies Allergy (Unverified 08/15/18 16:49) Home Medications: Home Medications Medication Instructions Recorded Confirmed Last Taken Type Carvedilol 6.25 mg PO BID 08/15/18 08/15/18 Unknown History DULoxetine 60 mg PO QDAY 08/15/18 08/15/18 Unknown History Gabapentin 600 mg PO Q6HR PRN 08/15/18 08/15/18 Unknown History Methylphenidate 5 mg PO TID 08/15/18 08/15/18 Unknown History Morphabond ER 60 mg PO Q12HR 08/15/18 08/15/18 Unknown History Pravastatin Sodium 10 mg PO QDAY 08/15/18 08/15/18 Unknown History Tizanidine HCl 4 mg PO Q12HR 08/15/18 08/15/18 Unknown History oxyCODONE /ACETAMINOPHEN 7.5 - 325 mg PO Q8HR 08/15/18 08/15/18 Unknown History ALBUTEROL Inhaler(NF) 90 mcg IH TID 08/29/18 08/29/18 Unknown History Omeprazole-Bicarb 40-1,100 Cap 40 mg PO DAILY 08/29/18 08/29/18 Unknown History Active Medications: Generic Name Dose Route Start Last Admin Trade Name Freq PRN Reason Stop Dose Admin Acetaminophen 650 mg 08/15/18 22:12 09/05/18 11:33 Tylenol PO 650 mg Q4H PRN Administration Pain MILD(1-3)/Fever >100.5/MONDRAGON Albuterol 2.5 mg 08/17/18 17:00 Proventil IH Q3HRT PRN Shortness Of Breath Albuterol/Ipratropium 1 ampul 08/20/18 14:00 09/07/18 02:34 Duoneb *Not For Prn Use* IH Not Given Q6HRT [facility] Lipase/Protease/Amylase 1 each 09/02/18 10:40 Pancresam Elizabeth 10,500 Unit FEEDTUBE PRN PRN For Clogged Feeding Tube Arformoterol Tartrate 15 mcg 08/18/18 20:00 09/06/18 19:56 Brovana Nebu IH 15 mcg Q12HRT [facility] Administration Budesonide 0.5 mg 08/18/18 20:00 09/06/18 19:56 Pulmicort IH 0.5 mg Q12HRT [facility] Administration Carvedilol 3.125 mg 08/26/18 15:19 09/06/18 21:50 Coreg PO 3.125 mg BID [facility] Administration Famotidine 20 mg 09/05/18 10:00 09/06/18 21:50 Pepcid PO 20 mg BID [facility] Administration Fondaparinux 7.5 mg 09/07/18 10:00 Arixtra SUB-Q DAILY [facility] Hydralazine HCl 10 mg 08/19/18 13:59 08/29/18 14:22 Apresoline IV 10 mg Q3H PRN Administration Hydralazine HCl 25 mg 09/01/18 14:00 09/06/18 21:50 Apresoline PO 25 mg Q8HR [facility] Administration Hydromorphone HCl 1 mg 09/06/18 10:38 09/06/18 15:35 Dilaudid IV 1 mg Q4H PRN Administration Pain , Severe (7-10) Hydromorphone HCl 2 mg 09/06/18 12:00 09/07/18 01:00 Dilaudid PO 2 mg Q6HR [facility] Administration Hydrophilic Ointment 1 applic 08/15/18 21:55 09/01/18 09:07 Vaseline Lip Therapy TP 1 applic Q2HR PRN Administration Dry Lips Fentanyl Citrate 2,000 mcg in 100 mls @ 4.765 mls/hr 09/02/18 11:00 09/07/18 03:20 Fentanyl Drip Premix IV 4 mcg/kg/hr TITR [facility] 19.06 mls/hr Administration Protocol 1 MCG/KG/HR Micafungin Sodium 100 mg/ 100 mls @ 100 mls/hr 09/02/18 15:00 09/06/18 10:48 Sodium Chloride IV 100 mls/hr QDAY [facility] Administration Protocol Meropenem 1,000 mg/ Sodium 100 mls @ 100 mls/hr 09/04/18 18:00 09/07/18 01:55 Chloride IV 100 mls/hr Q8H [facility] Administration Protocol Insulin Human Lispro 0 unit 09/04/18 18:00 09/07/18 00:00 Humalog SUB-Q Not Given Q6HR [facility] Protocol Metoclopramide HCl 5 mg 08/15/18 22:50 Reglan IV Q6H PRN Nausea And Vomiting Ondansetron HCl 4 mg 08/15/18 22:12 08/31/18 17:52 Zofran IV 4 mg Q8H PRN Administration Nausea And Vomiting Quetiapine Fumarate 200 mg 09/04/18 15:00 09/06/18 21:50 Seroquel PO 200 mg BID [facility] Administration Senna/Docusate Sodium 2 tab 09/06/18 11:00 09/06/18 21:51 Senokot S PO 2 tab BID [facility] Administration Simple Syrup 15 ml 09/02/18 11:24 Simple Syrup FEEDTUBE PRN PRN Hypoglycemia Simple Syrup 30 ml 09/02/18 11:24 Simple Syrup FEEDTUBE PRN PRN Hypoglycemia Sodium Bicarbonate 325 mg 09/02/18 10:40 Sodium Bicarbonate FEEDTUBE PRN PRN For Clogged Feeding Tube Sodium Chloride 10 ml 08/15/18 22:12 09/06/18 21:51 Sodium Chloride Flush Syringe 10 Ml IV 10 ml PRN PRN Administration LINE FLUSH
[2018-09-07] MEDS: APRESOLINE PO SCH ×3 (06:38→22:24)
[2018-09-07] MEDS: HumaLOG SUB-Q SCH ×4 (06:49→19:51)
[2018-09-07 07:02] LABS: Hematocrit 22.5 % (30.3-42.9); Hemoglobin 7.3 gm/dl (10.1-14.3); Mean Corpuscular HGB Conc 32 % (30-34); Mean Corpuscular Volume 94 fl (79-97); Red Cell Distribution Width 17.8 % (13.2-15.2)
[2018-09-07 07:11] LABS: Platelet Count 92 K/mm3 (140-440)
[2018-09-07 07:34] LABS: Alanine Aminotransferase 43 units/L (7-56); Albumin 2.1 g/dL (3.9-5); BUN/Creatinine Ratio 37; Blood Urea Nitrogen 26 mg/dL (7-17); Hemolysis Index 0; Iron 26 ug/dL (37-170); Total Iron Binding Capacity 150 mcg/dL (250-450)
[2018-09-07] MEDS: BROVANA NEBU IH SCH ×2 (08:09→19:25)
[2018-09-07] MEDS: PULMICORT IH SCH ×2 (08:09→19:25)
--- NOTE | 2018-09-07 08:54 | Progress Note ---
Assessment and Plan Severe sepsis Blood cultures 08/15 - yeast Sputum culture 08/15 - E.coli and Staph aureus Acute renal failure on admission - resolved Acute respiratory failure - intubated and mechanically ventilated Lactic acidosis on admission - resolved Acute transaminitis on admission Thrombocytopenia Severe Anemia -s/p blood transfusion Acute LE DVT -initiated on Arixtra Altered mental status History of COPD New onset cardiomyopathy, LVEF 25-30% this admission Previous echo 03/30/2016 at [facility] revealed normal LVEF Previous stress MPI 03/29/2016 at [facility] revealed no ischemia Abnormal ECG showing LBBB, chronic Recent EGD at [facility] 08/08/2018 revealing irregular Z line, gastritis and small histal hernia Recent colonoscopy at [facility] 08/08/2018 revealing sigmoid polyp, transverse colon polyps, inflamed hemorrhoids and diverticulosis Recommend: Continue medical therapy for new onset cardiomyopathy. Conservative cardiac management. Subjective Date of service: 09/07/18 Principal diagnosis: Acute hypoxemic hypercapnic Resp failure; AE-COPD; Acute kidney injury Interval history: Patient remains unresponsive, on the vent. No reported cardiac events overnight. Objective Vital Signs Temp Pulse Pulse Pulse Resp Resp BP 09/07/18 08:45 90 18 140/75 09/07/18 08:30 96 H 27 H 123/52 09/07/18 08:25 96 H 34 H 09/07/18 08:15 82 30 H 127/60 09/07/18 08:09 88 39 H 09/07/18 08:04 85 127/60 09/07/18 08:00 87 15 127/60 09/07/18 07:45 91 H 18 154/84 09/07/18 07:31 104 H 30 H 119/54 09/07/18 07:15 88 18 119/54 09/07/18 07:00 78 13 119/54 09/07/18 06:45 79 13 127/64 09/07/18 06:38 78 120/54 09/07/18 06:31 77 13 120/54 09/07/18 06:15 72 13 102/48 09/07/18 06:00 70 14 116/53 09/07/18 05:45 68 30 H 106/48 09/07/18 05:30 67 30 H 102/48 09/07/18 05:15 66 30 H 104/47 09/07/18 05:00 70 14 111/53 09/07/18 04:45 70 11 L 124/49 09/07/18 04:30 73 15 121/52 09/07/18 04:15 76 16 125/89 09/07/18 04:00 99.2 F 79 70 16 125/89 09/07/18 03:45 71 15 112/52 09/07/18 03:31 69 15 103/46 09/07/18 03:15 71 15 106/46 09/07/18 03:00 65 19 102/49 09/07/18 02:45 64 20 109/49 09/07/18 02:30 70 17 102/51 09/07/18 02:15 65 19 101/48 09/07/18 02:00 64 86 77 22 35 H 109/50 09/07/18 01:45 65 9 L 109/50 09/07/18 01:30 65 24 102/46 09/07/18 01:15 65 18 102/48 09/07/18 01:00 66 11 L 99/45 09/07/18 00:45 64 17 98/46 09/07/18 00:30 65 17 101/49 09/07/18 00:15 67 14 104/47 09/07/18 00:00 99.7 F H 66 66 15 98/46 09/06/18 23:45 70 15 101/44 09/06/18 23:31 67 103/48 09/06/18 23:30 68 12 103/48 09/06/18 23:15 69 30 H 103/49 09/06/18 23:00 68 12 94/47 09/06/18 22:45 70 12 104/53 09/06/18 22:30 82 11 L 97/57 09/06/18 22:15 85 18 106/52 09/06/18 22:01 74 33 H 94/52 09/06/18 22:00 74 09/06/18 21:50 76 84/51 09/06/18 21:45 74 24 84/51 09/06/18 21:31 72 30 H 89/50 09/06/18 21:17 80 19 90/57 09/06/18 21:15 77 15 93/53 09/06/18 21:01 76 13 93/53 09/06/18 20:53 67 30 H 99/46 04/09/19 20:45 70 30 H 99/46 09/06/18 20:30 68 30 H 103/48 09/06/18 20:15 74 30 H 105/41 09/06/18 20:00 99.9 F H 71 78 30 H 88/43 09/06/18 19:45 73 19 88/43 09/06/18 19:30 86 29 H 97/42 09/06/18 19:26 76 102/44 09/06/18 19:15 76 22 102/44 09/06/18 19:01 78 27 H 103/38 09/06/18 18:49 81 21 09/06/18 18:15 94 H 18 149/68 09/06/18 18:01 102 H 12 149/68 09/06/18 17:45 99 H 15 129/56 09/06/18 17:30 82 14 129/56 09/06/18 17:15 85 20 128/61 09/06/18 17:09 85 09/06/18 17:01 84 24 134/62 09/06/18 16:45 84 21 144/66 09/06/18 16:31 93 H 16 144/66 09/06/18 16:15 88 12 129/60 09/06/18 16:00 100.5 F H 81 98 H 30 H 124/67 09/06/18 15:49 85 35 H 09/06/18 15:45 85 15 123/84 09/06/18 15:35 36 H 09/06/18 15:31 99 H 20 123/84 09/06/18 15:15 91 H 10 L 118/65 09/06/18 15:00 77 19 118/65 09/06/18 14:45 77 19 116/41 09/06/18 14:30 77 12 115/44 09/06/18 14:15 76 22 114/51 09/06/18 14:00 78 23 113/52 09/06/18 13:51 77 104/47 09/06/18 13:45 78 32 H 104/47 09/06/18 13:30 76 34 H 105/48 09/06/18 13:15 80 30 H 96/46 09/06/18 13:00 76 30 H 108/51 09/06/18 12:45 81 25 H 108/51 09/06/18 12:40 78 107/62 09/06/18 12:30 92 H 30 H 100/52 09/06/18 12:15 78 26 H 100/52 09/06/18 12:00 100.3 F H 84 77 21 100/50 09/06/18 11:45 76 15 102/50 09/06/18 11:30 83 27 H 108/48 09/06/18 11:15 85 24 115/50 09/06/18 11:00 86 20 118/53 09/06/18 10:48 85 112/56 09/06/18 10:45 84 16 112/56 09/06/18 10:30 86 20 117/57 09/06/18 10:15 90 18 107/55 09/06/18 10:00 84 19 107/51 09/06/18 09:45 89 15 115/59 09/06/18 09:30 86 26 H 107/48 09/06/18 09:15 92 H 17 99/45 09/06/18 09:00 93 H 17 104/44 Pulse Ox 09/07/18 08:45 99 09/07/18 08:30 100 09/07/18 08:25 09/07/18 08:15 99 09/07/18 08:09 09/07/18 08:04 99 09/07/18 08:00 99 09/07/18 07:45 98 09/07/18 07:31 85 09/07/18 07:15 97 09/07/18 07:00 98 09/07/18 06:45 98 09/07/18 06:38 09/07/18 06:31 99 09/07/18 06:15 100 09/07/18 06:00 100 09/07/18 05:45 100 09/07/18 05:30 100 09/07/18 05:15 99 09/07/18 05:00 99 09/07/18 04:45 100 09/07/18 04:30 99 09/07/18 04:15 99 09/07/18 04:00 98 09/07/18 03:45 99 09/07/18 03:31 100 09/07/18 03:15 100 09/07/18 03:00 100 09/07/18 02:45 100 09/07/18 02:30 100 09/07/18 02:15 100 09/07/18 02:00 100 09/07/18 01:45 100 09/07/18 01:30 100 09/07/18 01:15 100 09/07/18 01:00 100 09/07/18 00:45 100 09/07/18 00:30 100 09/07/18 00:15 100 09/07/18 00:00 100 09/06/18 23:45 100 09/06/18 23:31 100 09/06/18 23:30 100 09/06/18 23:15 100 09/06/18 23:00 100 09/06/18 22:45 100 09/06/18 22:30 100 09/06/18 22:15 100 09/06/18 22:01 100 09/06/18 22:00 100 09/06/18 21:50 09/06/18 21:45 100 09/06/18 21:31 100 09/06/18 21:17 100 09/06/18 21:15 100 09/06/18 21:01 100 09/06/18 20:53 100 09/06/18 20:45 100 09/06/18 20:30 100 09/06/18 20:15 100 09/06/18 20:00 100 09/06/18 19:45 100 09/06/18 19:30 100 09/06/18 19:26 99 09/06/18 19:15 99 09/06/18 19:01 99 09/06/18 18:49 100 09/06/18 18:15 98 09/06/18 18:01 91 09/06/18 17:45 90 09/06/18 17:30 99 09/06/18 17:15 99 09/06/18 17:09 95 09/06/18 17:01 99 09/06/18 16:45 99 09/06/18 16:31 99 09/06/18 16:15 90 09/06/18 16:00 99 09/06/18 15:49 09/06/18 15:45 100 09/06/18 15:35 09/06/18 15:31 98 09/06/18 15:15 79 L 09/06/18 15:00 96 09/06/18 14:45 97 09/06/18 14:30 96 09/06/18 14:15 98 09/06/18 14:00 97 09/06/18 13:51 09/06/18 13:45 98 09/06/18 13:30 98 09/06/18 13:15 97 09/06/18 13:00 96 09/06/18 12:45 95 09/06/18 12:40 96 09/06/18 12:30 96 09/06/18 12:15 97 09/06/18 12:00 97 09/06/18 11:45 96 09/06/18 11:30 96 09/06/18 11:15 96 09/06/18 11:00 94 09/06/18 10:48 09/06/18 10:45 94 09/06/18 10:30 96 09/06/18 10:15 96 09/06/18 10:00 96 09/06/18 09:45 95 09/06/18 09:30 94 09/06/18 09:15 86 09/06/18 09:00 95 - Physical Examination General: Other (unresponsive, on the vent) Cardiac: Positive: Reg Rate and Rhythm - Labs and Meds Cardiac Enzymes 09/07/18 Range/Units 05:40 AST 88 H (5-40) units/L CBC 09/07/18 Range/Units 05:40 WBC 5.4 (4.5-11.0) K/mm3 RBC 2.40 L (3.65-5.03) M/mm3 Hgb 7.3 L (10.1-14.3) gm/dl Hct 22.5 L (30.3-42.9) % Plt Count 92 L (140-440) K/mm3 Comprehensive Metabolic Panel 09/07/18 Range/Units 05:40 Sodium 144 (137-145) mmol/L Potassium 3.8 (3.6-5.0) mmol/L Chloride 109.8 H (98-107) mmol/L Carbon Dioxide 27 (22-30) mmol/L BUN 26 H (7-17) mg/dL Creatinine 0.7 (0.7-1.2) mg/dL Glucose 118 H (65-100) mg/dL Calcium 8.0 L (8.4-10.2) mg/dL AST 88 H (5-40) units/L ALT 43 (7-56) units/L Alkaline Phosphatase 99 (35-129) units/L Total Protein 5.8 L (6.3-8.2) g/dL Albumin 2.1 L (3.9-5) g/dL - Allied health notes Allied health notes reviewed: RT
[2018-09-07] MEDS: DILAUDID IV PRN (09:12)
[2018-09-07] MEDS ORDERED: FERRLECIT 125 MG in NACL 0.9% 100 ML IV ONE (09:30)
--- NOTE | 2018-09-07 09:36 | Progress Note ---
Assessment and Plan Severe sepsis Intermittent fevers andleukocytosis -Fungemia on Micafungin Acute hypoxic-hypercapnic respiratory failure on MVS, re-inttubated h/o COPD Acute kidney injury, resolved Acute encephalopathy( toxic-metabolic) Aspiration pneumonia/CAP New onset cardiomyopathy, LVEF 25-30% this admission Previous echo 03/30/2016 at [facility] revealed normal LVEF Previous stress MPI 03/29/2016 at [facility] revealed no ischemia Abnormal ECG showing LBBB, chronic Anemia s/p PRBC -Recent EGD at [facility] 08/08/2018 revealing irregular Z line, gastritis and small hiatal hernia Recent colonoscopy at [facility] 08/08/2018 revealing sigmoid polyp, transverse colon polyps, inflamed hemorrhoids and diverticulosis E.coli/Staph pneumonia Thrombocytopenia resolved Hypernatremia Hypokalemia -Continue with MVS -VAP bundle addressed -Aspiration precautions -Wean supplemental oxygen to keep O2 sats 88-90% -Diuresis as tolerated by hemodynamics, renal function. If the effusions do not significantly improve, radiographically in the next 72 hours, will need thoracentesis -Daily evaluation for readiness for liberation from MVS -ABG and CXR -Antibiotics/antifungal to complete course per ID -OGT for free water, medications and nutritional support. -Cardioprotective measures -Stress ulcer prophylaxis -Aspiration precautions -Accuchecks with glycemic control. Target glucose of 140-180 mg/dL -Continue bronchodilators with pulmonary hygiene per RT -Maintenance of sleep -wake cycle -Mobility program -Agitation and analgesia -Influenza and pneumonia vaccination per protocol ..care plan discussed at length with RN/RT at the bedside Discussed with the at the bedside. Updated him and care plan discussed. CT scan is consistent with bilateral pleural effusions and alveolar edema. Also introduced the need for trachesotomy PROGNOSIS :GUARDED CONDITION: CRITICAL CODE STATUS: FULL CODE The high probability of a clinically significant, sudden or life-threatening deterioration of the [respiratory, cardiovascular, renal] system(s) required my full and direct attention, intervention and personal management. The aggregate critical care time was [35] minutes without overlap. Time includes spent on; [x] Data Review and interpretation [x] Patient assessment and monitoring of vital signs [x] Documentation [x] Medication orders and management Subjective Date of service: 09/07/18 Principal diagnosis: Acute hypoxemic hypercapnic Resp failure; AE-COPD; Acute kidney injury Interval history: Follow up: Aspiration PNA, Abnormal CXR, Hypotension, Acute renal failure, Acute encephaloapthy, Acute hypoxemic respiratory failure on MVS Seen and examined. Vitals, labs, medications, chart and imaging reviewed. 24 hours events reviewed. No fevers, no vomiting, on going agitation with desaturations with minimal movement. On MVS AC-PRVC 30/450/14/100 Remains orally intubated, critically ill. On fentanyl infusion with as needed midazolam Lower extremity dopplers shows bilateral thrombosis, on anticoagulation Objective Vital Signs - 12hr 09/06/18 09/06/18 09/06/18 21:45 21:50 22:00 Temperature Pulse Rate 74 76 Pulse Rate [ Anterior Bilateral Throughout] Pulse Rate [ 74 Apical] Respiratory 24 Rate Respiratory Rate [Anterior Bilateral Throughout] Blood Pressure 84/51 84/51 O2 Sat by Pulse 100 100 Oximetry 09/06/18 09/06/18 09/06/18 22:01 22:15 22:30 Temperature Pulse Rate 74 85 82 Pulse Rate [ Anterior Bilateral Throughout] Pulse Rate [ Apical] Respiratory 33 H 18 11 L Rate Respiratory Rate [Anterior Bilateral Throughout] Blood Pressure 94/52 106/52 97/57 O2 Sat by Pulse 100 100 100 Oximetry 09/06/18 09/06/18 09/06/18 22:45 23:00 23:15 Temperature Pulse Rate 70 68 69 Pulse Rate [ Anterior Bilateral Throughout] Pulse Rate [ Apical] Respiratory 12 12 30 H Rate Respiratory Rate [Anterior Bilateral Throughout] Blood Pressure 104/53 94/47 103/49 O2 Sat by Pulse 100 100 100 Oximetry 09/06/18 09/06/18 09/06/18 23:30 23:31 23:45 Temperature Pulse Rate 68 67 70 Pulse Rate [ Anterior Bilateral Throughout] Pulse Rate [ Apical] Respiratory 12 15 Rate Respiratory Rate [Anterior Bilateral Throughout] Blood Pressure 103/48 103/48 101/44 O2 Sat by Pulse 100 100 100 Oximetry 09/07/18 09/07/18 09/07/18 00:00 00:15 00:30 Temperature 99.7 F H Pulse Rate 66 67 65 Pulse Rate [ Anterior Bilateral Throughout] Pulse Rate [ 66 Apical] Respiratory 15 14 17 Rate Respiratory Rate [Anterior Bilateral Throughout] Blood Pressure 98/46 104/47 101/49 O2 Sat by Pulse 100 100 100 Oximetry 09/07/18 09/07/18 09/07/18 00:45 01:00 01:15 Temperature Pulse Rate 64 66 65 Pulse Rate [ Anterior Bilateral Throughout] Pulse Rate [ Apical] Respiratory 17 11 L 18 Rate Respiratory Rate [Anterior Bilateral Throughout] Blood Pressure 98/46 99/45 102/48 O2 Sat by Pulse 100 100 100 Oximetry 09/07/18 09/07/18 09/07/18 01:30 01:45 02:00 Temperature Pulse Rate 65 65 64 Pulse Rate [ 86 Anterior Bilateral Throughout] Pulse Rate [ 77 Apical] Respiratory 24 9 L 22 Rate Respiratory 35 H Rate [Anterior Bilateral Throughout] Blood Pressure 102/46 109/50 109/50 O2 Sat by Pulse 100 100 100 Oximetry 09/07/18 09/07/18 09/07/18 02:15 02:30 02:45 Temperature Pulse Rate 65 70 64 Pulse Rate [ Anterior Bilateral Throughout] Pulse Rate [ Apical] Respiratory 19 17 20 Rate Respiratory Rate [Anterior Bilateral Throughout] Blood Pressure 101/48 102/51 109/49 O2 Sat by Pulse 100 100 100 Oximetry 09/07/18 09/07/18 09/07/18 03:00 03:15 03:31 Temperature Pulse Rate 65 71 69 Pulse Rate [ Anterior Bilateral Throughout] Pulse Rate [ Apical] Respiratory 19 15 15 Rate Respiratory Rate [Anterior Bilateral Throughout] Blood Pressure 102/49 106/46 103/46 O2 Sat by Pulse 100 100 100 Oximetry 09/07/18 09/07/18 09/07/18 03:45 04:00 04:15 Temperature 99.2 F Pulse Rate 71 79 76 Pulse Rate [ Anterior Bilateral Throughout] Pulse Rate [ 70 Apical] Respiratory 15 16 16 Rate Respiratory Rate [Anterior Bilateral Throughout] Blood Pressure 112/52 125/89 125/89 O2 Sat by Pulse 99 98 99 Oximetry 09/07/18 09/07/18 09/07/18 04:30 04:45 05:00 Temperature Pulse Rate 73 70 70 Pulse Rate [ Anterior Bilateral Throughout] Pulse Rate [ Apical] Respiratory 15 11 L 14 Rate Respiratory Rate [Anterior Bilateral Throughout] Blood Pressure 121/52 124/49 111/53 O2 Sat by Pulse 99 100 99 Oximetry 09/07/18 09/07/18 09/07/18 05:15 05:30 05:45 Temperature Pulse Rate 66 67 68 Pulse Rate [ Anterior Bilateral Throughout] Pulse Rate [ Apical] Respiratory 30 H 30 H 30 H Rate Respiratory Rate [Anterior Bilateral Throughout] Blood Pressure 104/47 102/48 106/48 O2 Sat by Pulse 99 100 100 Oximetry 09/07/18 09/07/18 09/07/18 06:00 06:15 06:31 Temperature Pulse Rate 70 72 77 Pulse Rate [ Anterior Bilateral Throughout] Pulse Rate [ Apical] Respiratory 14 13 13 Rate Respiratory Rate [Anterior Bilateral Throughout] Blood Pressure 116/53 102/48 120/54 O2 Sat by Pulse 100 100 99 Oximetry 09/07/18 09/07/18 09/07/18 06:38 06:45 07:00 Temperature Pulse Rate 78 79 78 Pulse Rate [ Anterior Bilateral Throughout] Pulse Rate [ Apical] Respiratory 13 13 Rate Respiratory Rate [Anterior Bilateral Throughout] Blood Pressure 120/54 127/64 119/54 O2 Sat by Pulse 98 98 Oximetry 09/07/18 09/07/18 09/07/18 07:15 07:31 07:45 Temperature Pulse Rate 88 104 H 91 H Pulse Rate [ Anterior Bilateral Throughout] Pulse Rate [ Apical] Respiratory 18 30 H 18 Rate Respiratory Rate [Anterior Bilateral Throughout] Blood Pressure 119/54 119/54 154/84 O2 Sat by Pulse 97 85 98 Oximetry 09/07/18 09/07/18 09/07/18 08:00 08:04 08:09 Temperature Pulse Rate 87 85 Pulse Rate [ 88 Anterior Bilateral Throughout] Pulse Rate [ Apical] Respiratory 15 Rate Respiratory 39 H Rate [Anterior Bilateral Throughout] Blood Pressure 127/60 127/60 O2 Sat by Pulse 99 99 Oximetry 09/07/18 09/07/18 09/07/18 08:15 08:25 08:30 Temperature Pulse Rate 82 96 H Pulse Rate [ 96 H Anterior Bilateral Throughout] Pulse Rate [ Apical] Respiratory 30 H 27 H Rate Respiratory 34 H Rate [Anterior Bilateral Throughout] Blood Pressure 127/60 123/52 O2 Sat by Pulse 99 100 Oximetry 09/07/18 09/07/18 08:45 09:12 Temperature Pulse Rate 90 Pulse Rate [ Anterior Bilateral Throughout] Pulse Rate [ Apical] Respiratory 18 42 H Rate Respiratory Rate [Anterior Bilateral Throughout] Blood Pressure 140/75 O2 Sat by Pulse 99 Oximetry Constitutional: appears uncomfortable, other (elderly looking CF, normocephalic and atraumatic) Eyes: non-icteric ENT: oropharynx moist, other (ETT 23 cm MARTHA) Neck: supple, no lymphadenopathy, no JVD, other (no thyromegaly) Effort: mildly labored Ascultation: Bilateral: diminished breath sounds, rales, rhonchi Percussion: Bilateral: not dull Cardiovascular: regular rate and rhythm Gastrointestinal: normoactive bowel sounds, soft, non-tender, non-distended Integumentary: normal Extremities: no cyanosis, no ischemia or petechiae, edema (Left lower extremity) Neurologic: non-focal exam (grossly), pupils equal and round, CN II-XII normal, motor strength normal and Psychiatric: other (unable to assess) CBC and BMP: 09/21/18 04:35 09/22/18 04:11 ABG, PT/INR, D-dimer: ABG POC ABG pH 7.303 (7.35-7.45) L 09/06/18 03:33 POC ABG pCO2 49.2 (35-45) H 09/06/18 03:33 POC ABG pO2 73 (80-105) L 09/06/18 03:33 POC ABG HCO3 24.4 (22-26 mml/L) 09/06/18 03:33 POC ABG Total CO2 26 (23-27mmol/L) 09/06/18 03:33 POC ABG O2 Sat 93 09/06/18 03:33 PT/INR, D-dimer D-Dimer 2768.33 ng/mlDDU (0-234) H 08/15/18 18:31 Abnormal lab findings: Abnormal Labs 08/15/18 08/15/18 08/15/18 17:52 17:52 17:52 WBC 12.7 H RBC 3.25 L Hgb Hct RDW Plt Count Lymph % (Auto) [place] % (Auto) Lymph # [place] # Seg Neutrophils % Seg Neuts % (Manual) Lymphocytes % (Manual) 6.0 L Nucleated RBC % Seg Neutrophils # Seg Neutrophils # Man Lymphocytes # (Manual) 0.8 L D-Dimer POC ABG pH POC ABG pCO2 POC ABG pO2 VBG pH Sodium Potassium 3.4 L Chloride 94.6 L Carbon Dioxide 17 L BUN 67 H Creatinine 3.5 H Glucose 131 H POC Glucose Hemoglobin A1c Lactic Acid 5.20 H* Calcium 7.6 L Phosphorus Magnesium Iron TIBC AST 887 H ALT 316 H Troponin T C-Reactive Protein Total Protein Albumin 3.1 L Triglycerides LDL Cholesterol Direct HDL Cholesterol Urine WBC (Auto) Vancomycin Trough Salicylates Acetaminophen % CD3 Cells % CD19 Cells Absolute CD19 Count Miscellaneous Test Crossmatch 08/15/18 08/15/18 08/15/18 18:11 18:19 18:31 WBC RBC Hgb Hct RDW Plt Count Lymph % (Auto) [place] % (Auto) Lymph # [place] # Seg Neutrophils % Seg Neuts % (Manual) Lymphocytes % (Manual) Nucleated RBC % Seg Neutrophils # Seg Neutrophils # Man Lymphocytes # (Manual) D-Dimer 2768.33 H POC ABG pH 7.173 L POC ABG pCO2 47.8 H POC ABG pO2 177 H VBG pH 7.187 L* Sodium Potassium Chloride Carbon Dioxide BUN Creatinine Glucose POC Glucose Hemoglobin A1c Lactic Acid Calcium Phosphorus Magnesium Iron TIBC AST ALT Troponin T C-Reactive Protein Total Protein Albumin Triglycerides LDL Cholesterol Direct HDL Cholesterol Urine WBC (Auto) Vancomycin Trough Salicylates Acetaminophen % CD3 Cells % CD19 Cells Absolute CD19 Count Miscellaneous Test Crossmatch 08/15/18 08/15/18 08/15/18 18:31 19:14 19:14 WBC RBC Hgb Hct RDW Plt Count Lymph % (Auto) [place] % (Auto) Lymph # [place] # Seg Neutrophils % Seg Neuts % (Manual) Lymphocytes % (Manual) Nucleated RBC % Seg Neutrophils # Seg Neutrophils # Man Lymphocytes # (Manual) D-Dimer POC ABG pH POC ABG pCO2 POC ABG pO2 VBG pH Sodium Potassium Chloride Carbon Dioxide BUN Creatinine Glucose POC Glucose Hemoglobin A1c Lactic Acid 2.70 H* Calcium Phosphorus Magnesium Iron TIBC AST ALT Troponin T 0.454 H* C-Reactive Protein Total Protein Albumin Triglycerides 356 H LDL Cholesterol Direct 4 L HDL Cholesterol 10 L Urine WBC (Auto) Vancomycin Trough Salicylates < 0.3 L Acetaminophen % CD3 Cells % CD19 Cells Absolute CD19 Count Miscellaneous Test Crossmatch 08/15/18 08/15/18 08/15/18 19:14 19:15 23:09 WBC RBC Hgb Hct RDW Plt Count Lymph % (Auto) [place] % (Auto) Lymph # [place] # Seg Neutrophils % Seg Neuts % (Manual) Lymphocytes % (Manual) Nucleated RBC % Seg Neutrophils # Seg Neutrophils # Man Lymphocytes # (Manual) D-Dimer POC ABG pH POC ABG pCO2 POC ABG pO2 VBG pH Sodium Potassium Chloride Carbon Dioxide BUN Creatinine Glucose POC Glucose Hemoglobin A1c Lactic Acid 3.20 H* Calcium Phosphorus Magnesium Iron TIBC AST ALT Troponin T C-Reactive Protein Total Protein Albumin Triglycerides LDL Cholesterol Direct HDL Cholesterol Urine WBC (Auto) 17.0 H Vancomycin Trough Salicylates Acetaminophen < 5.0 L % CD3 Cells % CD19 Cells Absolute CD19 Count Miscellaneous Test Crossmatch 08/15/18 08/16/18 08/16/18 23:09 01:41 05:38 WBC RBC 3.07 L Hgb 9.8 L Hct 28.7 L RDW Plt Count Lymph % (Auto) [place] % (Auto) Lymph # [place] # Seg Neutrophils % Seg Neuts % (Manual) 84.0 H Lymphocytes % (Manual) 6.0 L Nucleated RBC % 4.0 H Seg Neutrophils # Seg Neutrophils # Man Lymphocytes # (Manual) 0.5 L D-Dimer POC ABG pH 7.323 L POC ABG pCO2 34.7 L POC ABG pO2 78 L VBG pH Sodium Potassium Chloride Carbon Dioxide BUN Creatinine Glucose POC Glucose Hemoglobin A1c 6.4 H Lactic Acid Calcium Phosphorus Magnesium Iron TIBC AST ALT Troponin T C-Reactive Protein Total Protein Albumin Triglycerides LDL Cholesterol Direct HDL Cholesterol Urine WBC (Auto) Vancomycin Trough Salicylates Acetaminophen % CD3 Cells % CD19 Cells Absolute CD19 Count Miscellaneous Test Crossmatch 08/16/18 08/16/18 08/17/18 05:38 22:43 03:42 WBC RBC Hgb Hct RDW Plt Count Lymph % (Auto) [place] % (Auto) Lymph # [place] # Seg Neutrophils % Seg Neuts % (Manual) Lymphocytes % (Manual) Nucleated RBC % Seg Neutrophils # Seg Neutrophils # Man Lymphocytes # (Manual) D-Dimer POC ABG pH POC ABG pCO2 POC ABG pO2 VBG pH Sodium Potassium 2.9 L* 3.1 L 2.9 L* Chloride 108.8 H 111.9 H Carbon Dioxide 17 L 19 L 21 L BUN 62 H 40 H 33 H Creatinine 2.0 H Glucose 139 H 145 H POC Glucose Hemoglobin A1c Lactic Acid Calcium 7.8 L 8.3 L Phosphorus 1.50 L Magnesium Iron TIBC AST 619 H ALT 353 H Troponin T C-Reactive Protein Total Protein 6.1 L Albumin 2.8 L Triglycerides LDL Cholesterol Direct HDL Cholesterol Urine WBC (Auto) Vancomycin Trough Salicylates Acetaminophen % CD3 Cells % CD19 Cells Absolute CD19 Count Miscellaneous Test Crossmatch 08/17/18 08/17/18 08/18/18 11:02 16:42 03:28 WBC RBC Hgb Hct RDW Plt Count Lymph % (Auto) [place] % (Auto) Lymph # [place] # Seg Neutrophils % Seg Neuts % (Manual) Lymphocytes % (Manual) Nucleated RBC % Seg Neutrophils # Seg Neutrophils # Man Lymphocytes # (Manual) D-Dimer POC ABG pH 7.483 H 7.499 H POC ABG pCO2 POC ABG pO2 VBG pH Sodium 147 H Potassium 3.2 L Chloride 115.8 H Carbon Dioxide BUN 23 H Creatinine Glucose 121 H POC Glucose Hemoglobin A1c Lactic Acid Calcium 8.1 L Phosphorus 2.30 L D Magnesium Iron TIBC AST ALT Troponin T C-Reactive Protein Total Protein Albumin Triglycerides LDL Cholesterol Direct HDL Cholesterol Urine WBC (Auto) Vancomycin Trough Salicylates Acetaminophen % CD3 Cells % CD19 Cells Absolute CD19 Count Miscellaneous Test Crossmatch 08/18/18 08/18/18 08/18/18 04:10 13:39 13:39 WBC RBC Hgb Hct RDW Plt Count Lymph % (Auto) [place] % (Auto) Lymph # [place] # Seg Neutrophils % Seg Neuts % (Manual) Lymphocytes % (Manual) Nucleated RBC % Seg Neutrophils # Seg Neutrophils # Man Lymphocytes # (Manual) D-Dimer POC ABG pH POC ABG pCO2 POC ABG pO2 VBG pH Sodium 147 H Potassium 3.3 L Chloride 111.9 H Carbon Dioxide BUN 21 H Creatinine Glucose 113 H POC Glucose Hemoglobin A1c Lactic Acid Calcium Phosphorus 1.50 L D Magnesium Iron TIBC AST ALT Troponin T 0.317 H* D C-Reactive Protein 10.70 H Total Protein Albumin Triglycerides LDL Cholesterol Direct HDL Cholesterol Urine WBC (Auto) Vancomycin Trough Salicylates Acetaminophen % CD3 Cells % CD19 Cells Absolute CD19 Count Miscellaneous Test Crossmatch 08/18/18 08/19/18 08/19/18 16:51 03:47 04:15 WBC RBC Hgb Hct RDW Plt Count Lymph % (Auto) [place] % (Auto) Lymph # [place] # Seg Neutrophils % Seg Neuts % (Manual) Lymphocytes % (Manual) Nucleated RBC % Seg Neutrophils # Seg Neutrophils # Man Lymphocytes # (Manual) D-Dimer POC ABG pH 7.454 H 7.482 H POC ABG pCO2 POC ABG pO2 65 L VBG pH Sodium 154 H Potassium 3.3 L Chloride 115.1 H Carbon Dioxide BUN 19 H Creatinine Glucose 117 H POC Glucose Hemoglobin A1c Lactic Acid Calcium 7.8 L Phosphorus Magnesium Iron TIBC AST ALT Troponin T C-Reactive Protein Total Protein Albumin Triglycerides LDL Cholesterol Direct HDL Cholesterol Urine WBC (Auto) Vancomycin Trough Salicylates Acetaminophen % CD3 Cells % CD19 Cells Absolute CD19 Count Miscellaneous Test Crossmatch 08/19/18 08/19/18 08/20/18 14:32 16:18 03:51 WBC RBC Hgb Hct RDW Plt Count Lymph % (Auto) [place] % (Auto) Lymph # [place] # Seg Neutrophils % Seg Neuts % (Manual) Lymphocytes % (Manual) Nucleated RBC % Seg Neutrophils # Seg Neutrophils # Man Lymphocytes # (Manual) D-Dimer POC ABG pH 7.483 H POC ABG pCO2 33.4 L POC ABG pO2 51 L 74 L VBG pH Sodium Potassium Chloride Carbon Dioxide BUN Creatinine Glucose POC Glucose Hemoglobin A1c Lactic Acid Calcium Phosphorus Magnesium Iron TIBC AST ALT Troponin T C-Reactive Protein Total Protein Albumin Triglycerides LDL Cholesterol Direct HDL Cholesterol Urine WBC (Auto) Vancomycin Trough Salicylates Acetaminophen % CD3 Cells 44 L % CD19 Cells 41 H Absolute CD19 Count 1290 H Miscellaneous Test Crossmatch 08/20/18 08/21/18 08/21/18 05:25 03:54 05:45 WBC 24.1 H RBC 2.83 L Hgb 8.8 L Hct 26.7 L RDW 15.7 H Plt Count 127 L Lymph % (Auto) [place] % (Auto) Lymph # [place] # Seg Neutrophils % Seg Neuts % (Manual) 94.0 H Lymphocytes % (Manual) 4.0 L Nucleated RBC % 1.0 H Seg Neutrophils # Seg Neutrophils # Man 22.7 H Lymphocytes # (Manual) 1.0 L D-Dimer POC ABG pH POC ABG pCO2 31.9 L POC ABG pO2 66 L VBG pH Sodium 146 H D Potassium Chloride 111.2 H Carbon Dioxide BUN 24 H Creatinine Glucose 141 H POC Glucose Hemoglobin A1c Lactic Acid Calcium 8.1 L Phosphorus Magnesium Iron TIBC AST 65 H ALT 104 H Troponin T C-Reactive Protein Total Protein 6.2 L Albumin 2.6 L Triglycerides LDL Cholesterol Direct HDL Cholesterol Urine WBC (Auto) Vancomycin Trough Salicylates Acetaminophen % CD3 Cells % CD19 Cells Absolute CD19 Count Miscellaneous Test Crossmatch 08/21/18 08/22/18 08/22/18 05:45 06:20 06:45 WBC RBC Hgb Hct RDW Plt Count Lymph % (Auto) [place] % (Auto) Lymph # [place] # Seg Neutrophils % Seg Neuts % (Manual) Lymphocytes % (Manual) Nucleated RBC % Seg Neutrophils # Seg Neutrophils # Man Lymphocytes # (Manual) D-Dimer POC ABG pH POC ABG pCO2 32.9 L POC ABG pO2 VBG pH Sodium Potassium 3.5 L Chloride 109.4 H 112.4 H Carbon Dioxide 21 L 20 L BUN 50 H 61 H Creatinine 2.0 H D 1.9 H Glucose 144 H 154 H POC Glucose Hemoglobin A1c Lactic Acid Calcium 7.6 L 7.8 L Phosphorus Magnesium Iron TIBC AST ALT Troponin T C-Reactive Protein Total Protein 5.3 L Albumin 2.1 L Triglycerides LDL Cholesterol Direct HDL Cholesterol Urine WBC (Auto) Vancomycin Trough Salicylates Acetaminophen % CD3 Cells % CD19 Cells Absolute CD19 Count Miscellaneous Test Crossmatch 08/22/18 08/22/18 08/22/18 06:45 15:29 18:40 WBC RBC Hgb Hct RDW Plt Count Lymph % (Auto) [place] % (Auto) Lymph # [place] # Seg Neutrophils % Seg Neuts % (Manual) Lymphocytes % (Manual) Nucleated RBC % Seg Neutrophils # Seg Neutrophils # Man Lymphocytes # (Manual) D-Dimer POC ABG pH POC ABG pCO2 POC ABG pO2 VBG pH Sodium Potassium Chloride Carbon Dioxide BUN Creatinine Glucose POC Glucose 169 H Hemoglobin A1c Lactic Acid Calcium Phosphorus Magnesium Iron TIBC AST ALT Troponin T C-Reactive Protein 4.70 H Total Protein Albumin Triglycerides 197 H LDL Cholesterol Direct HDL Cholesterol Urine WBC (Auto) Vancomycin Trough Salicylates Acetaminophen % CD3 Cells % CD19 Cells Absolute CD19 Count Miscellaneous Test Crossmatch 08/23/18 08/23/18 08/23/18 03:59 21:19 Unknown WBC 12.1 H RBC 2.29 L Hgb 7.1 L Hct 21.7 L RDW 15.7 H Plt Count 106 L Lymph % (Auto) [place] % (Auto) Lymph # [place] # Seg Neutrophils % Seg Neuts % (Manual) 92.0 H Lymphocytes % (Manual) 4.0 L Nucleated RBC % Seg Neutrophils # Seg Neutrophils # Man 11.1 H Lymphocytes # (Manual) 0.5 L D-Dimer POC ABG pH 7.306 L POC ABG pCO2 31.3 L POC ABG pO2 119 H 75 L VBG pH Sodium Potassium Chloride Carbon Dioxide BUN Creatinine Glucose POC Glucose Hemoglobin A1c Lactic Acid Calcium Phosphorus Magnesium Iron TIBC AST ALT Troponin T C-Reactive Protein Total Protein Albumin Triglycerides LDL Cholesterol Direct HDL Cholesterol Urine WBC (Auto) Vancomycin Trough Salicylates Acetaminophen % CD3 Cells % CD19 Cells Absolute CD19 Count Miscellaneous Test Crossmatch 08/23/18 08/24/18 08/24/18 Unknown 04:18 08:30 WBC 12.8 H RBC 2.24 L Hgb 7.0 L Hct 21.1 L RDW Plt Count Lymph % (Auto) [place] % (Auto) Lymph # [place] # Seg Neutrophils % Seg Neuts % (Manual) 93.0 H Lymphocytes % (Manual) 6.0 L Nucleated RBC % Seg Neutrophils # Seg Neutrophils # Man 11.9 H Lymphocytes # (Manual) 0.8 L D-Dimer POC ABG pH POC ABG pCO2 POC ABG pO2 78 L VBG pH Sodium Potassium Chloride 115.7 H Carbon Dioxide 21 L BUN 64 H Creatinine 2.0 H Glucose 149 H POC Glucose Hemoglobin A1c Lactic Acid Calcium 7.5 L Phosphorus Magnesium Iron TIBC AST ALT Troponin T C-Reactive Protein Total Protein 4.8 L Albumin 2.0 L Triglycerides LDL Cholesterol Direct HDL Cholesterol Urine WBC (Auto) Vancomycin Trough Salicylates Acetaminophen % CD3 Cells % CD19 Cells Absolute CD19 Count Miscellaneous Test Crossmatch 08/24/18 08/24/18 08/24/18 08:30 17:44 18:28 WBC RBC Hgb Hct RDW Plt Count Lymph % (Auto) [place] % (Auto) Lymph # [place] # Seg Neutrophils % Seg Neuts % (Manual) Lymphocytes % (Manual) Nucleated RBC % Seg Neutrophils # Seg Neutrophils # Man Lymphocytes # (Manual) D-Dimer POC ABG pH 7.474 H POC ABG pCO2 POC ABG pO2 61 L VBG pH Sodium Potassium Chloride 108.3 H Carbon Dioxide 20 L BUN 65 H Creatinine 2.0 H Glucose 167 H POC Glucose 164 H Hemoglobin A1c Lactic Acid Calcium 7.7 L Phosphorus Magnesium Iron TIBC AST ALT Troponin T C-Reactive Protein Total Protein 5.3 L Albumin 2.2 L Triglycerides LDL Cholesterol Direct HDL Cholesterol Urine WBC (Auto) Vancomycin Trough Salicylates Acetaminophen % CD3 Cells % CD19 Cells Absolute CD19 Count Miscellaneous Test Crossmatch 08/25/18 08/25/18 08/25/18 03:35 05:20 05:20 WBC RBC Hgb 6.7 L Hct 21.0 L RDW Plt Count Lymph % (Auto) [place] % (Auto) Lymph # [place] # Seg Neutrophils % Seg Neuts % (Manual) Lymphocytes % (Manual) Nucleated RBC % Seg Neutrophils # Seg Neutrophils # Man Lymphocytes # (Manual) D-Dimer POC ABG pH POC ABG pCO2 POC ABG pO2 79 L VBG pH Sodium Potassium Chloride Carbon Dioxide 21 L BUN 71 H Creatinine 3.1 H D Glucose 171 H POC Glucose Hemoglobin A1c Lactic Acid Calcium 7.5 L Phosphorus Magnesium Iron TIBC AST ALT Troponin T C-Reactive Protein Total Protein Albumin Triglycerides LDL Cholesterol Direct HDL Cholesterol Urine WBC (Auto) Vancomycin Trough Salicylates Acetaminophen % CD3 Cells % CD19 Cells Absolute CD19 Count Miscellaneous Test Crossmatch 08/25/18 08/25/18 08/25/18 05:20 08:52 12:42 WBC RBC Hgb Hct RDW Plt Count Lymph % (Auto) [place] % (Auto) Lymph # [place] # Seg Neutrophils % Seg Neuts % (Manual) Lymphocytes % (Manual) Nucleated RBC % Seg Neutrophils # Seg Neutrophils # Man Lymphocytes # (Manual) D-Dimer POC ABG pH POC ABG pCO2 POC ABG pO2 VBG pH Sodium Potassium Chloride Carbon Dioxide BUN Creatinine Glucose POC Glucose 166 H Hemoglobin A1c Lactic Acid Calcium Phosphorus Magnesium Iron TIBC AST ALT Troponin T C-Reactive Protein 5.00 H Total Protein Albumin Triglycerides LDL Cholesterol Direct HDL Cholesterol Urine WBC (Auto) Vancomycin Trough Salicylates Acetaminophen % CD3 Cells % CD19 Cells Absolute CD19 Count Miscellaneous Test Crossmatch See Detail 08/25/18 08/26/18 08/26/18 18:05 00:13 04:53 WBC RBC Hgb Hct RDW Plt Count Lymph % (Auto) [place] % (Auto) Lymph # [place] # Seg Neutrophils % Seg Neuts % (Manual) Lymphocytes % (Manual) Nucleated RBC % Seg Neutrophils # Seg Neutrophils # Man Lymphocytes # (Manual) D-Dimer POC ABG pH POC ABG pCO2 30.9 L POC ABG pO2 70 L VBG pH Sodium Potassium Chloride Carbon Dioxide BUN Creatinine Glucose POC Glucose 121 H 164 H Hemoglobin A1c Lactic Acid Calcium Phosphorus Magnesium Iron TIBC AST ALT Troponin T C-Reactive Protein Total Protein Albumin Triglycerides LDL Cholesterol Direct HDL Cholesterol Urine WBC (Auto) Vancomycin Trough Salicylates Acetaminophen % CD3 Cells % CD19 Cells Absolute CD19 Count Miscellaneous Test Crossmatch 08/26/18 08/26/18 08/26/18 05:42 06:00 06:00 WBC RBC 2.62 L Hgb 7.7 L Hct 23.0 L RDW 22.0 H Plt Count Lymph % (Auto) 6.3 L [place] % (Auto) Lymph # 0.7 L [place] # Seg Neutrophils % 88.1 H Seg Neuts % (Manual) Lymphocytes % (Manual) Nucleated RBC % Seg Neutrophils # 9.6 H Seg Neutrophils # Man Lymphocytes # (Manual) D-Dimer POC ABG pH POC ABG pCO2 POC ABG pO2 VBG pH Sodium Potassium Chloride Carbon Dioxide 21 L BUN 70 H Creatinine 3.3 H Glucose 146 H POC Glucose 149 H Hemoglobin A1c Lactic Acid Calcium 8.0 L Phosphorus Magnesium Iron TIBC AST ALT Troponin T C-Reactive Protein Total Protein Albumin Triglycerides LDL Cholesterol Direct HDL Cholesterol Urine WBC (Auto) Vancomycin Trough Salicylates Acetaminophen % CD3 Cells % CD19 Cells Absolute CD19 Count Miscellaneous Test Crossmatch 08/26/18 08/26/18 08/27/18 11:37 23:54 04:35 WBC RBC 2.50 L Hgb 7.6 L Hct 22.3 L RDW 21.8 H Plt Count Lymph % (Auto) 7.3 L [place] % (Auto) Lymph # 0.7 L [place] # Seg Neutrophils % 85.6 H Seg Neuts % (Manual) Lymphocytes % (Manual) Nucleated RBC % Seg Neutrophils # 8.6 H Seg Neutrophils # Man Lymphocytes # (Manual) D-Dimer POC ABG pH POC ABG pCO2 POC ABG pO2 VBG pH Sodium Potassium Chloride Carbon Dioxide BUN Creatinine Glucose POC Glucose 183 H 150 H Hemoglobin A1c Lactic Acid Calcium Phosphorus Magnesium Iron TIBC AST ALT Troponin T C-Reactive Protein Total Protein Albumin Triglycerides LDL Cholesterol Direct HDL Cholesterol Urine WBC (Auto) Vancomycin Trough Salicylates Acetaminophen % CD3 Cells % CD19 Cells Absolute CD19 Count Miscellaneous Test Crossmatch 08/27/18 08/27/18 08/28/18 04:35 12:17 04:43 WBC RBC Hgb Hct RDW Plt Count Lymph % (Auto) [place] % (Auto) Lymph # [place] # Seg Neutrophils % Seg Neuts % (Manual) Lymphocytes % (Manual) Nucleated RBC % Seg Neutrophils # Seg Neutrophils # Man Lymphocytes # (Manual) D-Dimer POC ABG pH POC ABG pCO2 32.1 L 33.8 L POC ABG pO2 68 L 78 L VBG pH Sodium Potassium Chloride Carbon Dioxide 19 L BUN 67 H Creatinine 2.9 H Glucose 155 H POC Glucose Hemoglobin A1c Lactic Acid Calcium Phosphorus 4.70 H Magnesium Iron TIBC AST ALT Troponin T C-Reactive Protein Total Protein Albumin Triglycerides LDL Cholesterol Direct HDL Cholesterol Urine WBC (Auto) Vancomycin Trough Salicylates Acetaminophen % CD3 Cells % CD19 Cells Absolute CD19 Count Miscellaneous Test Crossmatch 08/28/18 08/28/18 08/28/18 05:03 05:20 05:20 WBC RBC 2.43 L Hgb 7.4 L Hct 21.8 L RDW 20.8 H Plt Count Lymph % (Auto) 7.6 L [place] % (Auto) 8.7 H Lymph # 0.7 L [place] # Seg Neutrophils % 82.9 H Seg Neuts % (Manual) Lymphocytes % (Manual) Nucleated RBC % Seg Neutrophils # Seg Neutrophils # Man Lymphocytes # (Manual) D-Dimer POC ABG pH POC ABG pCO2 POC ABG pO2 VBG pH Sodium Potassium Chloride 107.8 H Carbon Dioxide 21 L BUN 55 H Creatinine 2.0 H Glucose 177 H POC Glucose 160 H Hemoglobin A1c Lactic Acid Calcium Phosphorus Magnesium Iron TIBC AST ALT Troponin T C-Reactive Protein Total Protein Albumin Triglycerides LDL Cholesterol Direct HDL Cholesterol Urine WBC (Auto) Vancomycin Trough Salicylates Acetaminophen % CD3 Cells % CD19 Cells Absolute CD19 Count Miscellaneous Test Crossmatch 08/28/18 08/28/18 08/28/18 12:18 18:58 22:31 WBC RBC Hgb Hct RDW Plt Count Lymph % (Auto) [place] % (Auto) Lymph # [place] # Seg Neutrophils % Seg Neuts % (Manual) Lymphocytes % (Manual) Nucleated RBC % Seg Neutrophils # Seg Neutrophils # Man Lymphocytes # (Manual) D-Dimer POC ABG pH POC ABG pCO2 34.4 L POC ABG pO2 67 L VBG pH Sodium Potassium Chloride Carbon Dioxide BUN Creatinine Glucose POC Glucose 164 H 149 H Hemoglobin A1c Lactic Acid Calcium Phosphorus Magnesium Iron TIBC AST ALT Troponin T C-Reactive Protein Total Protein Albumin Triglycerides LDL Cholesterol Direct HDL Cholesterol Urine WBC (Auto) Vancomycin Trough Salicylates Acetaminophen % CD3 Cells % CD19 Cells Absolute CD19 Count Miscellaneous Test Crossmatch 08/28/18 08/29/18 08/29/18 23:33 05:25 05:25 WBC RBC 2.30 L Hgb 7.0 L Hct 20.9 L RDW 21.0 H Plt Count Lymph % (Auto) 11.5 L [place] % (Auto) 9.2 H Lymph # 0.8 L [place] # Seg Neutrophils % 78.8 H Seg Neuts % (Manual) Lymphocytes % (Manual) Nucleated RBC % Seg Neutrophils # Seg Neutrophils # Man Lymphocytes # (Manual) D-Dimer POC ABG pH POC ABG pCO2 POC ABG pO2 VBG pH Sodium Potassium Chloride 111.1 H Carbon Dioxide BUN 55 H Creatinine 1.8 H Glucose 162 H POC Glucose 143 H Hemoglobin A1c Lactic Acid Calcium Phosphorus Magnesium Iron TIBC AST 46 H ALT < 5 L Troponin T C-Reactive Protein Total Protein 5.7 L Albumin 2.1 L Triglycerides LDL Cholesterol Direct HDL Cholesterol Urine WBC (Auto) Vancomycin Trough Salicylates Acetaminophen % CD3 Cells % CD19 Cells Absolute CD19 Count Miscellaneous Test Crossmatch 08/29/18 08/29/18 08/30/18 18:19 23:35 05:03 WBC RBC Hgb Hct RDW Plt Count Lymph % (Auto) [place] % (Auto) Lymph # [place] # Seg Neutrophils % Seg Neuts % (Manual) Lymphocytes % (Manual) Nucleated RBC % Seg Neutrophils # Seg Neutrophils # Man Lymphocytes # (Manual) D-Dimer POC ABG pH POC ABG pCO2 POC ABG pO2 VBG pH Sodium Potassium Chloride Carbon Dioxide BUN Creatinine Glucose POC Glucose 155 H 139 H 122 H Hemoglobin A1c Lactic Acid Calcium Phosphorus Magnesium Iron TIBC AST ALT Troponin T C-Reactive Protein Total Protein Albumin Triglycerides LDL Cholesterol Direct HDL Cholesterol Urine WBC (Auto) Vancomycin Trough Salicylates Acetaminophen % CD3 Cells % CD19 Cells Absolute CD19 Count Miscellaneous Test Crossmatch 08/30/18 08/30/18 08/30/18 09:33 09:33 09:54 WBC RBC 2.58 L Hgb 7.9 L Hct 23.5 L RDW 20.9 H Plt Count Lymph % (Auto) 8.0 L [place] % (Auto) 9.7 H Lymph # 0.8 L [place] # 1.0 H Seg Neutrophils % 82.1 H Seg Neuts % (Manual) Lymphocytes % (Manual) Nucleated RBC % Seg Neutrophils # 8.2 H Seg Neutrophils # Man Lymphocytes # (Manual) D-Dimer POC ABG pH POC ABG pCO2 POC ABG pO2 VBG pH Sodium 146 H Potassium Chloride 110.7 H Carbon Dioxide BUN 56 H Creatinine 1.9 H Glucose 145 H POC Glucose Hemoglobin A1c Lactic Acid Calcium Phosphorus 4.60 H Magnesium Iron TIBC AST ALT < 5 L Troponin T C-Reactive Protein Total Protein Albumin 2.7 L Triglycerides LDL Cholesterol Direct HDL Cholesterol Urine WBC (Auto) Vancomycin Trough Salicylates Acetaminophen % CD3 Cells % CD19 Cells Absolute CD19 Count Miscellaneous Test Flexitest 1 H Crossmatch 08/30/18 08/30/18 08/30/18 09:57 11:26 18:08 WBC RBC Hgb Hct RDW Plt Count Lymph % (Auto) [place] % (Auto) Lymph # [place] # Seg Neutrophils % Seg Neuts % (Manual) Lymphocytes % (Manual) Nucleated RBC % Seg Neutrophils # Seg Neutrophils # Man Lymphocytes # (Manual) D-Dimer POC ABG pH POC ABG pCO2 POC ABG pO2 VBG pH Sodium Potassium Chloride Carbon Dioxide BUN Creatinine Glucose POC Glucose 149 H 156 H Hemoglobin A1c Lactic Acid Calcium Phosphorus Magnesium Iron TIBC AST ALT Troponin T C-Reactive Protein Total Protein Albumin Triglycerides LDL Cholesterol Direct HDL Cholesterol Urine WBC (Auto) Vancomycin Trough Salicylates Acetaminophen % CD3 Cells % CD19 Cells Absolute CD19 Count Miscellaneous Test Flexitest 1 H Crossmatch 08/30/18 08/31/18 08/31/18 23:14 05:16 08:40 WBC RBC Hgb Hct RDW Plt Count Lymph % (Auto) [place] % (Auto) Lymph # [place] # Seg Neutrophils % Seg Neuts % (Manual) Lymphocytes % (Manual) Nucleated RBC % Seg Neutrophils # Seg Neutrophils # Man Lymphocytes # (Manual) D-Dimer POC ABG pH POC ABG pCO2 POC ABG pO2 VBG pH Sodium 151 H Potassium Chloride 113.8 H Carbon Dioxide BUN 45 H Creatinine Glucose 144 H POC Glucose 117 H 133 H Hemoglobin A1c Lactic Acid Calcium Phosphorus Magnesium Iron TIBC AST ALT Troponin T C-Reactive Protein Total Protein Albumin Triglycerides LDL Cholesterol Direct HDL Cholesterol Urine WBC (Auto) Vancomycin Trough Salicylates Acetaminophen % CD3 Cells % CD19 Cells Absolute CD19 Count Miscellaneous Test Crossmatch 08/31/18 09/01/18 09/01/18 23:46 04:45 04:45 WBC RBC 2.38 L Hgb 7.3 L Hct 22.1 L RDW 21.1 H Plt Count Lymph % (Auto) [place] % (Auto) Lymph # [place] # Seg Neutrophils % Seg Neuts % (Manual) 93.0 H Lymphocytes % (Manual) 4.0 L Nucleated RBC % Seg Neutrophils # Seg Neutrophils # Man 10.1 H Lymphocytes # (Manual) 0.4 L D-Dimer POC ABG pH POC ABG pCO2 POC ABG pO2 VBG pH Sodium 156 H Potassium 3.1 L Chloride 115.2 H Carbon Dioxide BUN 34 H Creatinine Glucose 125 H POC Glucose 124 H Hemoglobin A1c Lactic Acid Calcium Phosphorus Magnesium Iron TIBC AST ALT Troponin T C-Reactive Protein Total Protein Albumin Triglycerides LDL Cholesterol Direct HDL Cholesterol Urine WBC (Auto) Vancomycin Trough Salicylates Acetaminophen % CD3 Cells % CD19 Cells Absolute CD19 Count Miscellaneous Test Crossmatch 09/01/18 09/01/18 09/01/18 05:34 11:20 17:52 WBC RBC Hgb Hct RDW Plt Count Lymph % (Auto) [place] % (Auto) Lymph # [place] # Seg Neutrophils % Seg Neuts % (Manual) Lymphocytes % (Manual) Nucleated RBC % Seg Neutrophils # Seg Neutrophils # Man Lymphocytes # (Manual) D-Dimer POC ABG pH 7.553 H POC ABG pCO2 POC ABG pO2 74 L VBG pH Sodium Potassium Chloride Carbon Dioxide BUN Creatinine Glucose POC Glucose 128 H 146 H Hemoglobin A1c Lactic Acid Calcium Phosphorus Magnesium Iron TIBC AST ALT Troponin T C-Reactive Protein Total Protein Albumin Triglycerides LDL Cholesterol Direct HDL Cholesterol Urine WBC (Auto) Vancomycin Trough Salicylates Acetaminophen % CD3 Cells % CD19 Cells Absolute CD19 Count Miscellaneous Test Crossmatch 09/01/18 09/02/18 09/02/18 17:52 04:13 04:58 WBC 16.4 H RBC 2.64 L Hgb 7.9 L Hct 24.3 L RDW 20.8 H Plt Count Lymph % (Auto) [place] % (Auto) Lymph # [place] # Seg Neutrophils % Seg Neuts % (Manual) 96.0 H Lymphocytes % (Manual) 1.0 L Nucleated RBC % Seg Neutrophils # Seg Neutrophils # Man 15.7 H Lymphocytes # (Manual) 0.2 L D-Dimer POC ABG pH 7.488 H POC ABG pCO2 POC ABG pO2 63 L VBG pH Sodium Potassium Chloride Carbon Dioxide BUN Creatinine Glucose POC Glucose 143 H Hemoglobin A1c Lactic Acid Calcium Phosphorus Magnesium Iron TIBC AST ALT Troponin T C-Reactive Protein Total Protein Albumin Triglycerides LDL Cholesterol Direct HDL Cholesterol Urine WBC (Auto) Vancomycin Trough Salicylates Acetaminophen % CD3 Cells % CD19 Cells Absolute CD19 Count Miscellaneous Test Crossmatch 09/02/18 09/02/18 09/02/18 04:58 11:03 18:18 WBC RBC Hgb Hct RDW Plt Count Lymph % (Auto) [place] % (Auto) Lymph # [place] # Seg Neutrophils % Seg Neuts % (Manual) Lymphocytes % (Manual) Nucleated RBC % Seg Neutrophils # Seg Neutrophils # Man Lymphocytes # (Manual) D-Dimer POC ABG pH 7.344 L POC ABG pCO2 52.8 H POC ABG pO2 VBG pH Sodium 158 H Potassium 2.9 L* Chloride 115.7 H Carbon Dioxide BUN 27 H Creatinine 0.6 L Glucose 128 H POC Glucose 121 H Hemoglobin A1c Lactic Acid Calcium Phosphorus Magnesium 1.60 L Iron TIBC AST 64 H ALT Troponin T C-Reactive Protein Total Protein Albumin 2.6 L Triglycerides LDL Cholesterol Direct HDL Cholesterol Urine WBC (Auto) Vancomycin Trough Salicylates Acetaminophen % CD3 Cells % CD19 Cells Absolute CD19 Count Miscellaneous Test Crossmatch 09/02/18 09/03/18 09/03/18 23:06 03:36 04:25 WBC RBC 2.20 L Hgb 6.7 L Hct 20.9 L RDW 21.1 H Plt Count Lymph % (Auto) [place] % (Auto) Lymph # [place] # Seg Neutrophils % Seg Neuts % (Manual) 90.0 H Lymphocytes % (Manual) 5.0 L Nucleated RBC % Seg Neutrophils # Seg Neutrophils # Man 8.7 H Lymphocytes # (Manual) 0.5 L D-Dimer POC ABG pH POC ABG pCO2 POC ABG pO2 54 L VBG pH Sodium Potassium Chloride Carbon Dioxide BUN Creatinine Glucose POC Glucose 121 H Hemoglobin A1c Lactic Acid Calcium Phosphorus Magnesium Iron TIBC AST ALT Troponin T C-Reactive Protein Total Protein Albumin Triglycerides LDL Cholesterol Direct HDL Cholesterol Urine WBC (Auto) Vancomycin Trough Salicylates Acetaminophen % CD3 Cells % CD19 Cells Absolute CD19 Count Miscellaneous Test Crossmatch 09/03/18 09/03/18 09/03/18 04:25 05:45 10:24 WBC RBC Hgb Hct RDW Plt Count Lymph % (Auto) [place] % (Auto) Lymph # [place] # Seg Neutrophils % Seg Neuts % (Manual) Lymphocytes % (Manual) Nucleated RBC % Seg Neutrophils # Seg Neutrophils # Man Lymphocytes # (Manual) D-Dimer POC ABG pH POC ABG pCO2 POC ABG pO2 VBG pH Sodium 158 H Potassium 3.1 L Chloride 120.4 H Carbon Dioxide BUN 25 H Creatinine 0.6 L Glucose 127 H POC Glucose 178 H Hemoglobin A1c Lactic Acid Calcium 7.9 L Phosphorus Magnesium Iron TIBC AST ALT Troponin T C-Reactive Protein Total Protein 6.0 L Albumin 2.4 L Triglycerides LDL Cholesterol Direct HDL Cholesterol Urine WBC (Auto) Vancomycin Trough Salicylates Acetaminophen % CD3 Cells % CD19 Cells Absolute CD19 Count Miscellaneous Test Crossmatch See Detail 09/03/18 09/03/18 09/04/18 11:27 23:09 04:42 WBC RBC Hgb Hct RDW Plt Count Lymph % (Auto) [place] % (Auto) Lymph # [place] # Seg Neutrophils % Seg Neuts % (Manual) Lymphocytes % (Manual) Nucleated RBC % Seg Neutrophils # Seg Neutrophils # Man Lymphocytes # (Manual) D-Dimer POC ABG pH 7.293 L POC ABG pCO2 50.2 H POC ABG pO2 VBG pH Sodium Potassium Chloride Carbon Dioxide BUN Creatinine Glucose POC Glucose 107 H 139 H Hemoglobin A1c Lactic Acid Calcium Phosphorus Magnesium Iron TIBC AST ALT Troponin T C-Reactive Protein Total Protein Albumin Triglycerides LDL Cholesterol Direct HDL Cholesterol Urine WBC (Auto) Vancomycin Trough Salicylates Acetaminophen % CD3 Cells % CD19 Cells Absolute CD19 Count Miscellaneous Test Crossmatch 09/04/18 09/04/18 09/04/18 05:00 06:30 06:30 WBC RBC 2.32 L Hgb 7.0 L Hct 21.9 L RDW 20.2 H Plt Count Lymph % (Auto) [place] % (Auto) Lymph # [place] # Seg Neutrophils % 80.1 H Seg Neuts % (Manual) Lymphocytes % (Manual) Nucleated RBC % Seg Neutrophils # 8.2 H Seg Neutrophils # Man Lymphocytes # (Manual) D-Dimer POC ABG pH POC ABG pCO2 POC ABG pO2 VBG pH Sodium 150 H D Potassium Chloride 115.9 H Carbon Dioxide BUN 21 H Creatinine 0.6 L Glucose 125 H POC Glucose 154 H Hemoglobin A1c Lactic Acid Calcium 7.9 L Phosphorus Magnesium 1.50 L Iron TIBC AST ALT Troponin T C-Reactive Protein Total Protein Albumin Triglycerides LDL Cholesterol Direct HDL Cholesterol Urine WBC (Auto) Vancomycin Trough Salicylates Acetaminophen % CD3 Cells % CD19 Cells Absolute CD19 Count Miscellaneous Test Crossmatch 09/04/18 09/04/18 09/04/18 11:20 11:51 18:27 WBC RBC Hgb Hct RDW Plt Count Lymph % (Auto) [place] % (Auto) Lymph # [place] # Seg Neutrophils % Seg Neuts % (Manual) Lymphocytes % (Manual) Nucleated RBC % Seg Neutrophils # Seg Neutrophils # Man Lymphocytes # (Manual) D-Dimer POC ABG pH 7.244 L POC ABG pCO2 54.2 H POC ABG pO2 62 L VBG pH Sodium Potassium Chloride Carbon Dioxide BUN Creatinine Glucose POC Glucose 156 H 129 H Hemoglobin A1c Lactic Acid Calcium Phosphorus Magnesium Iron TIBC AST ALT Troponin T C-Reactive Protein Total Protein Albumin Triglycerides LDL Cholesterol Direct HDL Cholesterol Urine WBC (Auto) Vancomycin Trough Salicylates Acetaminophen % CD3 Cells % CD19 Cells Absolute CD19 Count Miscellaneous Test Crossmatch 09/05/18 09/05/18 09/05/18 03:46 04:00 04:00 WBC RBC 2.13 L Hgb 6.4 L Hct 20.1 L RDW 19.9 H Plt Count 117 L Lymph % (Auto) [place] % (Auto) Lymph # 0.9 L [place] # Seg Neutrophils % 81.7 H Seg Neuts % (Manual) Lymphocytes % (Manual) Nucleated RBC % Seg Neutrophils # Seg Neutrophils # Man Lymphocytes # (Manual) D-Dimer POC ABG pH 7.282 L POC ABG pCO2 57.3 H POC ABG pO2 124 H VBG pH Sodium Potassium Chloride 111.0 H Carbon Dioxide BUN 20 H Creatinine Glucose 130 H POC Glucose Hemoglobin A1c Lactic Acid Calcium 7.8 L Phosphorus Magnesium 1.60 L Iron TIBC AST ALT Troponin T C-Reactive Protein Total Protein Albumin Triglycerides LDL Cholesterol Direct HDL Cholesterol Urine WBC (Auto) Vancomycin Trough Salicylates Acetaminophen % CD3 Cells % CD19 Cells Absolute CD19 Count Miscellaneous Test Crossmatch 09/05/18 09/05/18 09/05/18 12:15 17:24 23:24 WBC RBC Hgb Hct RDW Plt Count Lymph % (Auto) [place] % (Auto) Lymph # [place] # Seg Neutrophils % Seg Neuts % (Manual) Lymphocytes % (Manual) Nucleated RBC % Seg Neutrophils # Seg Neutrophils # Man Lymphocytes # (Manual) D-Dimer POC ABG pH POC ABG pCO2 POC ABG pO2 VBG pH Sodium Potassium Chloride Carbon Dioxide BUN Creatinine Glucose POC Glucose 143 H 116 H 116 H Hemoglobin A1c Lactic Acid Calcium Phosphorus Magnesium Iron TIBC AST ALT Troponin T C-Reactive Protein Total Protein Albumin Triglycerides LDL Cholesterol Direct HDL Cholesterol Urine WBC (Auto) Vancomycin Trough Salicylates Acetaminophen % CD3 Cells % CD19 Cells Absolute CD19 Count Miscellaneous Test Crossmatch 09/06/18 09/06/1809/06/19 03:33 04:20 04:20 WBC RBC 2.45 L Hgb 7.4 L Hct 23.0 L RDW 18.1 H Plt Count 99 L Lymph % (Auto) [place] % (Auto) Lymph # 1.0 L [place] # Seg Neutrophils % 78.0 H Seg Neuts % (Manual) Lymphocytes % (Manual) Nucleated RBC % Seg Neutrophils # Seg Neutrophils # Man Lymphocytes # (Manual) D-Dimer POC ABG pH 7.303 L POC ABG pCO2 49.2 H POC ABG pO2 73 L VBG pH Sodium Potassium Chloride 109.3 H Carbon Dioxide BUN 24 H Creatinine Glucose 108 H POC Glucose Hemoglobin A1c Lactic Acid Calcium 8.1 L Phosphorus Magnesium Iron TIBC AST ALT Troponin T C-Reactive Protein Total Protein Albumin Triglycerides LDL Cholesterol Direct HDL Cholesterol Urine WBC (Auto) Vancomycin Trough Salicylates Acetaminophen % CD3 Cells % CD19 Cells Absolute CD19 Count Miscellaneous Test Crossmatch 09/06/18 09/06/18 09/06/18 04:55 11:29 14:40 WBC RBC Hgb Hct RDW Plt Count Lymph % (Auto) [place] % (Auto) Lymph # [place] # Seg Neutrophils % Seg Neuts % (Manual) Lymphocytes % (Manual) Nucleated RBC % Seg Neutrophils # Seg Neutrophils # Man Lymphocytes # (Manual) D-Dimer POC ABG pH POC ABG pCO2 POC ABG pO2 VBG pH Sodium Potassium Chloride Carbon Dioxide BUN Creatinine Glucose POC Glucose 124 H 149 H Hemoglobin A1c Lactic Acid Calcium Phosphorus Magnesium Iron TIBC AST ALT Troponin T C-Reactive Protein Total Protein Albumin Triglycerides LDL Cholesterol Direct HDL Cholesterol Urine WBC (Auto) Vancomycin Trough 28.6 H Salicylates Acetaminophen % CD3 Cells % CD19 Cells Absolute CD19 Count Miscellaneous Test Crossmatch 09/06/18 09/06/18 09/07/18 17:43 20:08 00:39 WBC RBC Hgb Hct RDW Plt Count Lymph % (Auto) [place] % (Auto) Lymph # [place] # Seg Neutrophils % Seg Neuts % (Manual) Lymphocytes % (Manual) Nucleated RBC % Seg Neutrophils # Seg Neutrophils # Man Lymphocytes # (Manual) D-Dimer POC ABG pH POC ABG pCO2 POC ABG pO2 VBG pH Sodium Potassium Chloride Carbon Dioxide BUN Creatinine Glucose POC Glucose 138 H 118 H 131 H Hemoglobin A1c Lactic Acid Calcium Phosphorus Magnesium Iron TIBC AST ALT Troponin T C-Reactive Protein Total Protein Albumin Triglycerides LDL Cholesterol Direct HDL Cholesterol Urine WBC (Auto) Vancomycin Trough Salicylates Acetaminophen % CD3 Cells % CD19 Cells Absolute CD19 Count Miscellaneous Test Crossmatch 09/07/18 09/07/18 05:40 05:40 WBC RBC 2.40 L Hgb 7.3 L Hct 22.5 L RDW 17.8 H Plt Count 92 L Lymph % (Auto) [place] % (Auto) Lymph # [place] # Seg Neutrophils % Seg Neuts % (Manual) Lymphocytes % (Manual) Nucleated RBC % Seg Neutrophils # Seg Neutrophils # Man Lymphocytes # (Manual) D-Dimer POC ABG pH POC ABG pCO2 POC ABG pO2 VBG pH Sodium Potassium Chloride 109.8 H Carbon Dioxide BUN 26 H Creatinine Glucose 118 H POC Glucose Hemoglobin A1c Lactic Acid Calcium 8.0 L Phosphorus Magnesium Iron 26 L TIBC 150 L AST 88 H ALT Troponin T C-Reactive Protein Total Protein 5.8 L Albumin 2.1 L Triglycerides LDL Cholesterol Direct HDL Cholesterol Urine WBC (Auto) Vancomycin Trough Salicylates Acetaminophen % CD3 Cells % CD19 Cells Absolute CD19 Count Miscellaneous Test Crossmatch Allied health notes reviewed: RT
[2018-09-07] MEDS: VERSED IV PRN ×3 (09:37→20:22)
[2018-09-07] MEDS: PEPCID PO SCH ×2 (09:43→22:22)
[2018-09-07] MEDS: COREG PO SCH ×2 (09:43→22:33)
[2018-09-07] MEDS: SENOKOT S PO SCH ×2 (09:43→22:22)
[2018-09-07 09:56] LABS: Myelocytes # (Manual) 0.1 K/mm3; Total Cells Counted 100
[2018-09-07 09:57] LABS: Basophils % (Manual) 0 % (0.0-1.8); Eosinophils % (Manual) 0 % (0.0-4.3)
[2018-09-07 09:58] LABS: Anisocytosis Few; Hypochromasia Rare
[2018-09-07 09:59] LABS: Large Platelets Rare; Platelet Estimate Consistent w Auto
[2018-09-07] MEDS ORDERED: MAGNESIUM SULFATE 3 GM in NACL 0.9% 100 ML IV ONE (10:00)
[2018-09-07] MEDS: MYCAMINE 100 MG in NACL 0.9% 100 ML IV SCH (11:27)
--- NOTE | 2018-09-07 12:22 | Progress Note ---
Assessment and Plan Cultures: 08/15/2018 blood culture: Camryn glabrata 1 of 4 08/15/2018 sputum culture: MSSA and Escherichia coli, wade susceptible 08/18/2018 blood culture: no growth 08/18/2018 urine culture: neg 08/22/2018 blood culture: no growth 08/25/2018 blood culture: no growth 09/02/2018 BAL cultures: resp almaz. Fungal and AFB pending: No growth thus far. 09/04/2018 blood culture: no growth thus far 09/04/2018 trach aspirate: no growth Fungitell was high, Aspergillus galactomannan negative. A/P: 68-year-old female with COPD, arthritis, history of multiple spinal surgeries was brought to the emergency room on 08/15/2018 with altered mental status: 1) Sepsis with septic shock: resolved. 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 Patient without any his tory of indwelling PICC line, TPN or immunocompromised status. reported severe explosive diarrhea, N/V before admission after taken 4 days of amoxicillin for dental implant on 07/29/2018 and had a EGD / colonoscopy on 08/08/2018 at [place] by Dr Alcantara. I reviewed report - mild chronic gastritis, focal intestinal metaplasia, squamocolumnar mucosa with mild reflux-type changes, and tubular adenoma. -s/p fluconazole 800 mg loading dose then micafungin, s/p amphotericin D6 on 08/26 -serum Crypto negative. -08/15/2018 blood culture: Camryn glabrata -08/18/2018 blood culture: no growth today -CTA chest showed limited study due to respiratory motion artifact. No evidence of pulmonary embolism. Abnormal bilateral lung consolidation which may represent pulmonary edema or pneumonia. Mild cardiomegaly. Indeterminant mediastinal lymph nodes. -CT abdomen showed extensive bilateral lower lobe pulmonary infiltrates, rectal tube and Dodge catheter noted. NG tube at gastric antrum. Left hip prosthesis Extensive degenerative changes noted lumbar spine -TTE EF 25-30% no vegetations -HIV neg/ CD4 1004 -reviewed CT chest abd done 01/05/2019 showed cholecystectomy, mild fatty liver, postoperative changes of lumbar laminectomy with non specific fluid, 9 mm LLL pulmonary nodule which was compared to previous CT and was stable. -CRP 10-->5 3) Acute renal failure: On admission: Nephrology following. 4) Acute respiratory failure: Back on the vent. Recently completed pneumonia treatment. WBC up and low grade fever. Underwent bronch + BAL on 09/02/2018. Cultures with no growth thus far. On abx. CTA chest 09/06/2018 negative for PE, bilateral air space disease, no air bronchograms as such. High oxygen requirements, ?ARDS 5) Right maxillary sinusitis: received empiric abx. 6) Acute encephalopathy: Likely multifactorial. CT head unremarkable for acute intracranial process. Improving. 7) Cardiomyopathy, LVEF 25-30% this admission. 8) H/O left hip prosthesis ? XR no effusion. CT no enhancement 9) Left leg DVT: on anticoagulation. Hematology following. Recs: discontinued Meropenem today. Off vancomycin since yesterday continue IV Micafungin for now, anticipate stopping tomorrow (already completed adequate treatment for Candidemia) low grade fevers could be from DVT Brando Pradhan MD [facility] C: [phone] O: [phone] F: [phone] Subjective Date of service: 09/07/18 Principal diagnosis: Acute hypoxemic hypercapnic Resp failure; AE-COPD; Acute kidney injury Interval history: Low grade fevers. No leucocytosis. Remains on the vent, high FiO2 requirements. CT negative for PE. Objective - Exam Narrative Exam: Physical Exam: Constitutional: sedated, intubated Head, Ears, Nose: Normocephalic, atraumatic. External ears, nose normal Eyes: Conjunctivae/corneas clear. No icterus. No ptosis. Neck: Supple, no meningeal signs Oral: intubated Cardiovascular: S1, S2 normal. Respiratory: coarse breath sounds b/l, equal bilaterally GI: Soft, bowel sounds normal. No peritoneal signs. Rectal tube + Musculoskeletal: pedal edema bilaterally. L>R Skin: No rash or abscess Hem/Lymphatic: No palpable cervical or supraclavicular nodes. No lymphangitis Psych: no agitation Neurological: sedated, intubated - Constitutional Vitals: Vital Signs Temp Pulse Resp BP Pulse Ox 98.6 F 91 H 42 H 142/59 99 09/07/18 08:00 09/07/18 09:43 09/07/18 09:12 09/07/18 09:43 09/07/18 08:45 Temperature -Last 24 Hours Temperature 98.6 F Temperature 99.2 F Temperature 99.7 F Temperature 99.9 F Temperature 100.5 F - Labs CBC & Chem 7: 09/07/18 05:40 09/07/18 05:40 Labs: Abnormal lab results 09/06/18 09/06/18 09/06/18 Range/Units 11:29 14:40 17:43 RBC (3.65-5.03) M/mm3 Hgb (10.1-14.3) gm/dl Hct (30.3-42.9) % RDW (13.2-15.2) % Plt Count (140-440) K/mm3 Seg Neuts % (Manual) (40.0-70.0) % Nucleated RBC % (0.0-0.9) % Lymphocytes # (Manual) (1.2-5.4) K/mm3 Chloride (98-107) mmol/L BUN (7-17) mg/dL Glucose (65-100) mg/dL POC Glucose 149 H 138 H (70-105) Calcium (8.4-10.2) mg/dL Iron (37-170) ug/dL TIBC (250-450) mcg/dL AST (5-40) units/L Total Protein (6.3-8.2) g/dL Albumin (3.9-5) g/dL Vancomycin Trough 28.6 H (5.0-20.0) ug/mL 09/06/18 09/07/18 09/07/18 Range/Units 20:08 00:39 05:40 RBC 2.40 L (3.65-5.03) M/mm3 Hgb 7.3 L (10.1-14.3) gm/dl Hct 22.5 L (30.3-42.9) % RDW 17.8 H (13.2-15.2) % Plt Count 92 L (140-440) K/mm3 Seg Neuts % (Manual) 80.0 H (40.0-70.0) % Nucleated RBC % 1.0 H (0.0-0.9) % Lymphocytes # (Manual) 0.8 L (1.2-5.4) K/mm3 Chloride (98-107) mmol/L BUN (7-17) mg/dL Glucose (65-100) mg/dL POC Glucose 118 H 131 H (70-105) Calcium (8.4-10.2) mg/dL Iron (37-170) ug/dL TIBC (250-450) mcg/dL AST (5-40) units/L Total Protein (6.3-8.2) g/dL Albumin (3.9-5) g/dL Vancomycin Trough (5.0-20.0) ug/mL 09/07/18 Range/Units 05:40 RBC (3.65-5.03) M/mm3 Hgb (10.1-14.3) gm/dl Hct (30.3-42.9) % RDW (13.2-15.2) % Plt Count (140-440) K/mm3 Seg Neuts % (Manual) (40.0-70.0) % Nucleated RBC % (0.0-0.9) % Lymphocytes # (Manual) (1.2-5.4) K/mm3 Chloride 109.8 H (98-107) mmol/L BUN 26 H (7-17) mg/dL Glucose 118 H (65-100) mg/dL POC Glucose (70-105) Calcium 8.0 L (8.4-10.2) mg/dL Iron 26 L (37-170) ug/dL TIBC 150 L (250-450) mcg/dL AST 88 H (5-40) units/L Total Protein 5.8 L (6.3-8.2) g/dL Albumin 2.1 L (3.9-5) g/dL Vancomycin Trough (5.0-20.0) ug/mL - Imaging and cardiology CT scan - chest: report reviewed, image reviewed (no PE. Bilateral diffuse air space opacities.)
[2018-09-07] MEDS: ARIXTRA SUB-Q SCH (14:03)
--- NOTE | 2018-09-07 14:48 | Progress Note ---
Assessment and Plan Assessment and plan: --Thrombocytopenia: Patient is on Lovenox, anemia requiring blood transfusion, LE DVT Hematology evaluation and recommendations noted Recommend IVC filter placement --Anemia; received total 3 units of PRBC hemoglobin 7.3 Stool for occult blood x 2 negative Consider GI evaluation if significant drop --Febrile illness; persistent low-grade fever Already on antibiotics, follow cultures, chest x-ray; airspace disease, ID following --Hypomagnesemia; Hypernatremia; resolved, --Acute hypoxic hypercapnic respiratory failure; extubated 08/29/18 Re Intubated 09/02/18 secondary to acute respiratory failure .n vent Status post bronchoscopy, findings reviewed, BAL sent for histopathology nebulizers, IV antibiotics, pulmonary critical following Wean as tolerated and extubated --Left lower extremity DVT; anticoagulation with Lovenox CTA chest to rule out PE when stable --Sepsis; aspiration pneumonia ; micafungin, meropenem and Vanco per ID --Hypertension; continue current antihypertensives --Severe malnutrition/hypoalbuminemia; Dietitian following --Acute kidney injury; probably secondary to ATN, Resolved, --Acute systolic congestive heart failure; EF 25-30%, Cardio following --Elevated Transaminases; resolved --DVT prophylaxis; on full dose Lovenox Consults and recommendations noted and appreciated Plan of care reviewed with the patient's nurse The high probability of a clinically significant, sudden or life threatening deterioration of the [respiratory, cardiology, ID, renal and metabolic] system(s) required my full and direct attention, intervention and personal management. The aggregate critical care time was [32] minutes. This time is in addition to time spent performing reported procedures but includes the following: [x] Data Review and interpretation [x] Patient assessment and monitoring of vital signs [x] Documentation [x] Medication orders and management History Interval history: Patient seen and examined medical records reviewed Patient remains intubated on vent support No new events reported by the Nursingstaff Restraint for safety Hospitalist Physical - Constitutional Vitals: Temp Pulse Resp BP Pulse Ox 98.3 F 78 32 H 96/45 100 09/07/18 12:00 09/07/18 12:44 09/07/18 12:33 09/07/18 12:44 09/07/18 12:44 General appearance: Present: mild distress, well-nourished, obese, other (on ve nt) - EENT Eyes: Present: PERRL, EOM intact - Neck Neck: Present: supple, normal ROM - Respiratory Respiratory effort: normal Respiratory: bilateral: diminished, negative: rales, rhonchi, wheezing - Cardiovascular Rhythm: regular Heart Sounds: Present: S1 & S2 - Extremities Extremities: no ischemia Extremity abnormal: edema - Abdominal General gastrointestinal: soft, non-tender, non-distended, normal bowel sounds, hypoactive bowel sounds - Integumentary Integumentary: Present: clear, warm - Psychiatric Psychiatric: other (noncommunicative) - Neurologic Neurologic: other (intubated on vent) Results - Labs CBC & Chem 7: 09/07/18 05:40 09/07/18 05:40 Labs: Laboratory Last Values WBC 5.4 K/mm3 (4.5-11.0) 09/07/18 05:40 RBC 2.40 M/mm3 (3.65-5.03) L 09/07/18 05:40 Hgb 7.3 gm/dl (10.1-14.3) L 09/07/18 05:40 Hct 22.5 % (30.3-42.9) L 09/07/18 05:40 MCV 94 fl (79-97) 09/07/18 05:40 MCH 30 pg (28-32) 09/07/18 05:40 MCHC 32 % (30-34) 09/07/18 05:40 RDW 17.8 % (13.2-15.2) H 09/07/18 05:40 Plt Count 92 K/mm3 (140-440) L 09/07/18 05:40 Lymph % (Auto) 16.1 % (13.4-35.0) 09/06/18 04:20 [place] % (Auto) 5.8 % (0.0-7.3) 09/06/18 04:20 Eos % (Auto) 0.0 % (0.0-4.3) 09/06/18 04:20 Baso % (Auto) 0.1 % (0.0-1.8) 09/06/18 04:20 Lymph # 1.0 K/mm3 (1.2-5.4) L 09/06/18 04:20 [place] # 0.4 K/mm3 (0.0-0.8) 09/06/18 04:20 Eos # 0.0 K/mm3 (0.0-0.4) 09/06/18 04:20 Baso # 0.0 K/mm3 (0.0-0.1) 09/06/18 04:20 Add Manual Diff Complete 09/07/18 05:40 Total Counted 100 09/07/18 05:40 Seg Neutrophils % 78.0 % (40.0-70.0) H 09/06/18 04:20 Seg Neuts % (Manual) 80.0 % (40.0-70.0) H 09/07/18 05:40 Band Neutrophils % 0 % 09/07/18 05:40 Lymphocytes % (Manual) 15.0 % (13.4-35.0) 09/07/18 05:40 Reactive Lymphs % (Man) 0 % 09/07/18 05:40 Monocytes % (Manual) 2.0 % (0.0-7.3) 09/07/18 05:40 Eosinophils % (Manual) 0 % (0.0-4.3) 09/07/18 05:40 Basophils % (Manual) 0 % (0.0-1.8) 09/07/18 05:40 Metamyelocytes % 2.0 % 09/07/18 05:40 Myelocytes % 1.0 % 09/07/18 05:40 Promyelocytes % 0 % 09/07/18 05:40 Blast Cells % 0 % 09/07/18 05:40 Nucleated RBC % 1.0 % (0.0-0.9) H 09/07/18 05:40 Seg Neutrophils # 4.8 K/mm3 (1.8-7.7) 09/06/18 04:20 Seg Neutrophils # Man 4.3 K/mm3 (1.8-7.7) 09/07/18 05:40 Band Neutrophils # 0.0 K/mm3 09/07/18 05:40 Abs Lymphs (Manual) 3262 cells/uL (850-3900) 08/19/18 14:32 Lymphocytes # (Manual) 0.8 K/mm3 (1.2-5.4) L 09/07/18 05:40 Abs React Lymphs (Man) 0.0 K/mm3 09/07/18 05:40 Monocytes # (Manual) 0.1 K/mm3 (0.0-0.8) 09/07/18 05:40 Eosinophils # (Manual) 0.0 K/mm3 (0.0-0.4) 09/07/18 05:40 Basophils # (Manual) 0.0 K/mm3 (0.0-0.1) 09/07/18 05:40 Metamyelocytes # 0.1 K/mm3 09/07/18 05:40 Myelocytes # 0.1 K/mm3 09/07/18 05:40 Promyelocytes # 0.0 K/mm3 09/07/18 05:40 Blast Cells # 0.0 K/mm3 09/07/18 05:40 WBC Morphology Not Reportable 09/07/18 05:40 Hypersegmented Neuts Not Reportable 09/07/18 05:40 Hyposegmented Neuts Not Reportable 09/07/18 05:40 Hypogranular Neuts Not Reportable 09/07/18 05:40 Smudge Cells Not Reportable 09/07/18 05:40 Toxic Granulation Not Reportable 09/07/18 05:40 Toxic Vacuolation Not Reportable 09/07/18 05:40 Dohle Bodies Not Reportable 09/07/18 05:40 Pelger-Huet Anomaly Not Reportable 09/07/18 05:40 Rosy Rods Not Reportable 09/07/18 05:40 Platelet Estimate Consistent w auto 09/07/18 05:40 Clumped Platelets Not Reportable 09/07/18 05:40 Plt Clumps, EDTA Not Reportable 09/07/18 05:40 Large Platelets Rare 09/07/18 05:40 Giant Platelets Not Reportable 09/07/18 05:40 Platelet Satelliting Not Reportable 09/07/18 05:40 Plt Morphology Comment Not Reportable 09/07/18 05:40 RBC Morphology Not Reportable 09/07/18 05:40 Dimorphic RBCs Not Reportable 09/07/18 05:40 Polychromasia Not Reportable 09/07/18 05:40 Hypochromasia Rare 09/07/18 05:40 Poikilocytosis Not Reportable 09/07/18 05:40 Anisocytosis Few 09/07/18 05:40 Microcytosis Not Reportable 09/07/18 05:40 Macrocytosis Not Reportable 09/07/18 05:40 Spherocytes Not Reportable 09/07/18 05:40 Pappenheimer Bodies Not Reportable 09/07/18 05:40 Sickle Cells Not Reportable 09/07/18 05:40 Target Cells Not Reportable 09/07/18 05:40 Tear Drop Cells Not Reportable 09/07/18 05:40 Ovalocytes Not Reportable 09/07/18 05:40 Helmet Cells Not Reportable 09/07/18 05:40 Hernandez-[place]uchen Bodies Not Reportable 09/07/18 05:40 [place] Rings Not Reportable 09/07/18 05:40 [place] Cells Not Reportable 09/07/18 05:40 Bite Cells Not Reportable 09/07/18 05:40 Crenated Cell Not Reportable 09/07/18 05:40 Elliptocytes Not Reportable 09/07/18 05:40 Acanthocytes (Spur) Not Reportable 09/07/18 05:40 Rouleaux Not Reportable 09/07/18 05:40 Hemoglobin C Crystals Not Reportable 09/07/18 05:40 Schistocytes Not Reportable 09/07/18 05:40 Malaria parasites Not Reportable 09/07/18 05:40 Ceasar Bodies Not Reportable 09/07/18 05:40 Hem Pathologist Commnt No 09/07/18 05:40 D-Dimer 2768.33 ng/mlDDU (0-234) H 08/15/18 18:31 Heparin Anti-Xa, Unfract Negative (Negative) 08/22/18 15:29 POC ABG pH 7.303 (7.35-7.45) L 09/06/18 03:33 POC ABG pCO2 49.2 (35-45) H 09/06/18 03:33 POC ABG pO2 73 (80-105) L 09/06/18 03:33 POC ABG HCO3 24.4 (22-26 mml/L) 09/06/18 03:33 POC ABG Total CO2 26 (23-27mmol/L) 09/06/18 03:33 POC ABG O2 Sat 93 09/06/18 03:33 POC ABG Base Excess -2 ((-2) - (+3)mmol/L) 09/06/18 03:33 VBG pH 7.187 (7.320-7.420) L* 03/18/19 18:19 FiO2 70 % 09/06/18 03:33 Sodium 144 mmol/L (137-145) 09/07/18 05:40 Potassium 3.8 mmol/L (3.6-5.0) 09/07/18 05:40 Chloride 109.8 mmol/L (98-107) H 09/07/18 05:40 Carbon Dioxide 27 mmol/L (22-30) 09/07/18 05:40 Anion Gap 11 mmol/L 09/07/18 05:40 BUN 26 mg/dL (7-17) H 09/07/18 05:40 Creatinine 0.7 mg/dL (0.7-1.2) 09/07/18 05:40 Estimated GFR > 60 ml/min 09/07/18 05:40 BUN/Creatinine Ratio 37 % 09/07/18 05:40 Glucose 118 mg/dL (65-100) H 09/07/18 05:40 POC Glucose 145 (70-105) H 09/07/18 12:03 Hemoglobin A1c 6.4 % (4-6) H 08/15/18 23:09 Lactic Acid 1.20 mmol/L (0.7-2.0) 08/22/18 15:29 Calcium 8.0 mg/dL (8.4-10.2) L 09/07/18 05:40 Phosphorus 3.30 mg/dL (2.5-4.5) 09/07/18 05:40 Magnesium 1.70 mg/dL (1.7-2.3) 09/07/18 05:40 Iron 26 ug/dL (37-170) L 09/07/18 05:40 TIBC 150 mcg/dL (250-450) L 09/07/18 05:40 Ferritin 375.0 ng/mL (13.0-400.0) 09/07/18 05:40 Total Bilirubin 0.20 mg/dL (0.1-1.2) 09/07/18 05:40 AST 88 units/L (5-40) H 09/07/18 05:40 ALT 43 units/L (7-56) 09/07/18 05:40 Alkaline Phosphatase 99 units/L (35-129) 09/07/18 05:40 Troponin T 0.317 ng/mL (0.00-0.029) H* D 08/18/18 13:39 C-Reactive Protein 5.00 mg/dL (0.00-1.30) H 08/25/18 05:20 Total Protein 5.8 g/dL (6.3-8.2) L 09/07/18 05:40 Albumin 2.1 g/dL (3.9-5) L 09/07/18 05:40 Albumin/Globulin Ratio 0.6 % 09/07/18 05:40 Triglycerides 197 mg/dL (2-149) H 08/22/18 06:45 Cholesterol 87 mg/dL (50-199) 08/15/18 18:31 LDL Cholesterol Direct 4 mg/dL (50-130) L 08/15/18 18:31 HDL Cholesterol 10 mg/dL (40-59) L 08/15/18 18:31 Cholesterol/HDL Ratio 8.70 % 08/15/18 18:31 Serotonin Release Assay See scanned results 08/22/18 15:29 Vitamin B12 388.4 pg/mL (211-911) 09/07/18 05:40 Folate 19.01 ng/mL (7.3-26.0) 09/07/18 05:40 Total Cortisol 21.4 mcg/dL () 08/25/18 08:52 Urine Color Rosemarie (Yellow) 08/15/18 19:15 Urine Turbidity Cloudy (Clear) 08/15/18 19:15 Urine pH 5.0 (5.0-7.0) 08/15/18 19:15 Ur Specific [place] 1.025 (1.003-1.030) 08/15/18 19:15 Urine Protein 30 mg/dl mg/dL (Negative) 08/15/18 19:15 Urine Glucose (UA) Neg mg/dL (Negative) 08/15/18 19:15 Urine Ketones Neg mg/dL (Negative) 08/15/18 19:15 Urine Blood Mod (Negative) 08/15/18 19:15 Urine Nitrite Neg (Negative) 08/15/18 19:15 Urine Bilirubin Neg (Negative) 08/15/18 19:15 Urine Urobilinogen 2.0 mg/dL (<2.0) 08/15/18 19:15 Ur Leukocyte Esterase Mod (Negative) 08/15/18 19:15 Urine WBC (Auto) 17.0 /HPF (0.0-6.0) H 08/15/18 19:15 Urine RBC (Auto) 5.0 /HPF (0.0-6.0) 08/15/18 19:15 Urine WBC Clumps 2+ /HPF 08/15/18 19:15 Amorphous Crystals 1+ 08/15/18 19:15 Hyaline Casts 54 /LPF 08/15/18 19:15 Granular Casts 14 /LPF 08/15/18 19:15 Urine Mucus Few /HPF 08/15/18 19:15 Vancomycin Trough 28.6 ug/mL (5.0-20.0) H 09/06/18 14:40 Salicylates < 0.3 mg/dL (2.8-20.0) L 08/15/18 19:14 Urine Opiates Screen Presumptive positive 08/15/18 19:15 Urine Methadone Screen Presumptive negative 08/15/18 19:15 Acetaminophen < 5.0 ug/mL (10.0-30.0) L 08/15/18 19:14 Ur Barbiturates Screen Presumptive negative 08/15/18 19:15 Ur Phencyclidine Scrn Presumptive negative 08/15/18 19:15 Ur Amphetamines Screen Presumptive negative 08/15/18 19:15 U Benzodiazepines Scrn Presumptive negative 08/15/18 19:15 Urine Cocaine Screen Presumptive negative 08/15/18 19:15 U Marijuana (THC) Screen Presumptive negative 08/15/18 19:15 Drugs of Abuse Note Disclamer 08/15/18 19:15 Heparin-induced Plt Ab Negative (Negative) 08/22/18 15:29 UF Heparin High Dose 0 % Release 08/22/18 15:29 NAZIA UFH Low Dose 0.1 0 % Release 08/22/18 15:29 NAZIA UFH Low Dose 0.5 0 % Release 08/22/18 15:29 Lymph Enumerat CD4/CD8 1.98 (0.86-5.00) 08/19/18 14:32 % CD3 Cells 44 % (57-85) L 08/19/18 14:32 Absolute CD3 Count 1451 cells/uL (840-3060) 08/19/18 14:32 % CD4 Cells 30 % (30-61) 08/19/18 14:32 Absolute CD4 Count 1004 cells/uL (490-1740) 08/19/18 14:32 % CD8 Cells 15 % (12-42) 08/19/18 14:32 Absolute CD8 Count 508 cells/uL (180-1170) 08/19/18 14:32 % CD19 Cells 41 % (6-29) H 08/19/18 14:32 Absolute CD19 Count 1290 cells/uL (110-660) H 08/19/18 14:32 C. difficile Toxin A&B Negative (Negative) 08/19/18 14:00 HIV 1&2 Antibody Rapid Non react (Non React) 08/18/18 13:39 HIV P24 Antigen Non react (Non React) 08/18/18 13:39 Miscellaneous Test Flexitest 1 08/30/18 10:00 Blood Type O POSITIVE 09/03/18 10:24 Antibody Screen Negative 09/03/18 10:24 Crossmatch See Detail 09/03/18 10:24 Active Medications - Current Medications Current Medications: Generic Name Dose Route Start Last Admin Trade Name Freq PRN Reason Stop Dose Admin Acetaminophen 650 mg 08/15/18 22:12 09/05/18 11:33 Tylenol PO 650 mg Q4H PRN Administration Pain MILD(1-3)/Fever >100.5/MONDRAGON Albuterol 2.5 mg 08/17/18 17:00 Proventil IH Q3HRT PRN Shortness Of Breath Albuterol/Ipratropium 1 ampul 08/20/18 14:00 09/07/18 08:09 Duoneb *Not For Prn Use* IH 1 ampul Q6HRT LAMAR Administration Lipase/Protease/Amylase 1 each 09/02/18 10:40 Alis Elizabeth 10,500 Unit FEEDTUBE PRN PRN For Clogged Feeding Tube Arformoterol Tartrate 15 mcg 08/18/18 20:00 09/07/18 08:09 Brovana Nebu IH 15 mcg Q12HRT LAMAR Administration Budesonide 0.5 mg 08/18/18 20:00 09/07/18 08:09 Pulmicort IH 0.5 mg Q12HRT LAMAR Administration Carvedilol 3.125 mg 08/26/18 15:19 09/07/18 09:43 Coreg PO 3.125 mg BID LAMAR Administration Famotidine 20 mg 09/05/18 10:00 04/10/19 09:43 Pepcid PO 20 mg BID LAMAR Administration Fondaparinux 7.5 mg 09/07/18 10:00 09/07/18 14:03 Arixtra SUB-Q 7.5 mg DAILY LAMAR Administration Hydralazine HCl 10 mg 08/19/18 13:59 08/29/18 14:22 Apresoline IV 10 mg Q3H PRN Administration Hydralazine HCl 25 mg 09/01/18 14:00 09/07/18 06:38 Apresoline PO 25 mg Q8HR LAMAR Administration Hydromorphone HCl 1 mg 09/06/18 10:38 09/07/18 09:12 Dilaudid IV 1 mg Q4H PRN Administration Pain , Severe (7-10) Hydromorphone HCl 2 mg 09/06/18 12:00 09/07/18 12:33 Dilaudid PO 2 mg Q6HR LAMAR Administration Hydrophilic Ointment 1 applic 08/15/18 21:55 09/01/18 09:07 Vaseline Lip Therapy TP 1 applic Q2HR PRN Administration Dry Lips Fentanyl Citrate 2,000 mcg in 100 mls @ 4.765 mls/hr 09/02/18 11:00 09/07/18 14:01 Fentanyl Drip Premix IV 3 mcg/kg/hr TITR LAMAR 14.295 mls/hr Administration Protocol 1 MCG/KG/HR Micafungin Sodium 100 mg/ 100 mls @ 100 mls/hr 09/02/18 15:00 09/07/18 11:27 Sodium Chloride IV 100 mls/hr QDAY [facility] Administration Protocol Insulin Human Lispro 0 unit 09/04/18 18:00 09/07/18 06:49 Humalog SUB-Q Not Given Q6HR [facility] Protocol Metoclopramide HCl 5 mg 08/15/18 22:50 Reglan IV Q6H PRN Nausea And Vomiting Midazolam HCl 1 mg 09/07/18 09:23 09/07/18 09:37 Versed IV 1 mg Q4H PRN Administration AGITATION Ondansetron HCl 4 mg 08/15/18 22:12 08/31/18 17:52 Zofran IV 4 mg Q8H PRN Administration Nausea And Vomiting Quetiapine Fumarate 200 mg 09/04/18 15:00 09/07/18 09:43 Seroquel PO 200 mg BID LAMAR Administration Senna/Docusate Sodium 2 tab 09/06/18 11:00 09/07/18 09:43 Senokot S PO 2 tab BID LAMAR Administration Simple Syrup 15 ml 09/02/18 11:24 Simple Syrup FEEDTUBE PRN PRN Hypoglycemia Simple Syrup 30 ml 09/02/18 11:24 Simple Syrup FEEDTUBE PRN PRN Hypoglycemia Sodium Bicarbonate 325 mg 09/02/18 10:40 Sodium Bicarbonate FEEDTUBE PRN PRN For Clogged Feeding Tube Sodium Chloride 10 ml 08/15/18 22:12 09/06/18 21:51 Sodium Chloride Flush Syringe 10 Ml IV 10 ml PRN PRN Administration LINE FLUSH Nutrition/Malnutrition Assess - Dietary Evaluation Nutrition/Malnutrition Findings: Nutrition Notes Start: 08/17/18 13:57 Freq: Status: Active Protocol: Document 09/06/18 11:37 MADAY (Rec: 09/06/18 11:45 MADAY [email or web address]) Nutrition Notes Initial or Follow up Reassessment Current Diagnosis Acute Kidney Injury,COPD, Diabetes,Sepsis,Hypertension, Respiratory Failure, Hyperlipidemia Other Pertinent Diagnosis AMS, hypokalemia, NSTEMI, encephalopathy, pneu, hypernatermia, shock liver Current Diet TF - Vital High Protein at 55ml/hr Labs/Tests Reviewed (Na lab WNL) Pertinent Medications Morphine, Senokot BID Height 5 ft 7 in Weight 100.2 kg [place] Body Weight (kg) 61.36 BMI 34.6 Weight change and time frame Current wt obtained from bed scale Subjective/Other Information Pt tolerating TF at goal rate. Per RN, pt receiving 200ml water flushes q4h. Pt remains on vent support and has rectal tube. Pt also on 2 abx . Spoke with RN about necessity of scheduled senokot . RN says senokot ordered sec to morphine. Percent of energy/protein needs met: 70% energy 94% pro #1 Nutrition Diagnosis Inadequate oral intake Diagnosis Progress(for reassessment Continues documentation) Is patient on ventilator? Yes Is Patient Ambulatory and/or Out of Bed No REE-([facility]-confined to bed) 8748.652 Calculation Used for Recommendations 65-70% energy needs Additional Notes Pro needs 2g/kg IBW: 123g/day Fluid needs 1ml/kcal Nutrition Intervention Nutrition Support: Continue Vital High Protein at 55ml/hr. Provide 50ml water flush q4h. Kcal 1,320 Protein (gm) 116 Fluid (mL) 1,103 Goal #1 TF tolerance Goal #2 TF to meet 65-70% energy and 80-100% pro needs Follow-Up By: 09/13/18 Additional Comments F/U: stable TF, vent status, wt, decrease water flush to 50q4h if Na lab remains WNL
[2018-09-07] MEDS: SODIUM CHLORIDE FLUSH SYRINGE 10 ML IV PRN (22:25)
[2018-09-08] MEDS: HumaLOG SUB-Q SCH ×4 (00:31→18:00)
[2018-09-08] MEDS: DILAUDID PO SCH ×4 (00:33→17:09)
[2018-09-08] MEDS: DUONEB *Not for PRN Use IH SCH ×4 (01:51→19:12)
[2018-09-08] MEDS: fentaNYL DRIP Premix 2,000 MCG/100 ML BAG IV SCH ×5 (02:09→23:03)
[2018-09-08] MEDS: VERSED IV PRN ×4 (05:06→19:49)
[2018-09-08] MEDS: APRESOLINE PO SCH ×3 (05:33→21:50)
[2018-09-08] MEDS: DILAUDID IV PRN ×2 (06:46→19:09)
[2018-09-08] MEDS: PULMICORT IH SCH ×2 (07:19→19:12)
[2018-09-08] MEDS: BROVANA NEBU IH SCH ×2 (07:19→19:12)
--- NOTE | 2018-09-08 08:16 | Hem/Onc Progress Note ---
Assessment and Plan 1. Bilateral posterior tibial and peroneal vein deep venous thrombosis, left leg edema. 2. Thrombocytopenia. The patient was on heparin-based treatment. Now it is fondaparinux. 3. Anemia. At admission, hemoglobin was normal. The patient received blood transfusion. We will do deficiency workup. There may be a bleeding component. 4. Pulmonary embolism study is negative. 5. Camryn infection. 6. Chronic obstructive pulmonary disease. 7. Thrombocytopenia may be medication related. Heparin antibodies has been ordered. ? micafungin 8. History of renal failure. Nephrology following. 9. Maxillary sinusitis. 10. Respiratory failure, on ventilator. 11. History of cardiomyopathy. 12. We will follow the trend of platelets. 13. The patient has Dodge catheter. 14. Encephalopathy. 15. Because of anemia - low plt, there is a question if inferior vena cava filter is better to prevent more pulmonary complications. 16. I will discuss with other team members. 09/08 IVC filter was discussed as pt has anemia pt looks at you - Patient Problems (1) Thrombocytopenia Current Visit: Yes Status: Acute (2) DVT (deep venous thrombosis) Current Visit: Yes Status: Acute (3) Anemia Current Visit: Yes Status: Acute Subjective Date of service: 09/08/18 Principal diagnosis: anemia - dvt Interval history: awake Objective - Constitutional Vitals: Last Vital Signs Temp 99.4 F 09/08/18 08:00 Pulse 106 H 09/08/18 07:20 Resp 36 H 09/08/18 07:20 BP 149/66 09/08/18 07:12 Pulse Ox 67 L 09/08/18 07:12 General appearance: no acute distress Performance status: 4-completely disabled - EENT ENT: other (vent) Lymph node exam: negative cervical - Respiratory Respiratory effort: Positive: normal Respiratory: bilateral: diminished - Cardiovascular Heart Sounds: Present: S1 & S2 Extremity abnormal: edema - Gastrointestinal General gastrointestinal: Present: soft Rectal Exam: deferred - Genitourinary Female genitourinary: Present: deferred - Integumentary Integumentary: warm - Musculoskeletal Musculoskeletal: generalized weakness - Labs Lab Results: Laboratory Results - last 24 hr 09/07/18 09/07/18 09/07/18 05:40 12:03 17:39 Add Manual Diff Complete Total Counted 100 Seg Neuts % (Manual) 80.0 H Band Neutrophils % 0 Lymphocytes % (Manual) 15.0 Reactive Lymphs % (Man) 0 Monocytes % (Manual) 2.0 Eosinophils % (Manual) 0 Basophils % (Manual) 0 Metamyelocytes % 2.0 Myelocytes % 1.0 Promyelocytes % 0 Blast Cells % 0 Nucleated RBC % 1.0 H Seg Neutrophils # Man 4.3 Band Neutrophils # 0.0 Lymphocytes # (Manual) 0.8 L Abs React Lymphs (Man) 0.0 Monocytes # (Manual) 0.1 Eosinophils # (Manual) 0.0 Basophils # (Manual) 0.0 Metamyelocytes # 0.1 Myelocytes # 0.1 Promyelocytes # 0.0 Blast Cells # 0.0 WBC Morphology Not Reportable Hypersegmented Neuts Not Reportable Hyposegmented Neuts Not Reportable Hypogranular Neuts Not Reportable Smudge Cells Not Reportable Toxic Granulation Not Reportable Toxic Vacuolation Not Reportable Dohle Bodies Not Reportable Pelger-Huet Anomaly Not Reportable Rosy Rods Not Reportable Platelet Estimate Consistent w auto Clumped Platelets Not Reportable Plt Clumps, EDTA Not Reportable Large Platelets Rare Giant Platelets Not Reportable Platelet Satelliting Not Reportable Plt Morphology Comment Not Reportable RBC Morphology Not Reportable Dimorphic RBCs Not Reportable Polychromasia Not Reportable Hypochromasia Rare Poikilocytosis Not Reportable Anisocytosis Few Microcytosis Not Reportable Macrocytosis Not Reportable Spherocytes Not Reportable Pappenheimer Bodies Not Reportable Sickle Cells Not Reportable Target Cells Not Reportable Tear Drop Cells Not Reportable Ovalocytes Not Reportable Helmet Cells Not Reportable Hernandez-[place] Bodies Not Reportable [place] Rings Not Reportable [place] Cells Not Reportable Bite Cells Not Reportable Crenated Cell Not Reportable Elliptocytes Not Reportable Acanthocytes (Spur) Not Reportable Rouleaux Not Reportable Hemoglobin C Crystals Not Reportable Schistocytes Not Reportable Malaria parasites Not Reportable Ceasar Bodies Not Reportable Hem Pathologist Commnt No POC ABG pH POC ABG pCO2 POC ABG HCO3 POC ABG Total CO2 POC ABG O2 Sat POC ABG Base Excess FiO2 POC Glucose 145 H 128 H 09/07/18 09/08/18 09/08/18 23:21 05:48 06:17 Add Manual Diff Total Counted Seg Neuts % (Manual) Band Neutrophils % Lymphocytes % (Manual) Reactive Lymphs % (Man) Monocytes % (Manual) Eosinophils % (Manual) Basophils % (Manual) Metamyelocytes % Myelocytes % Promyelocytes % Blast Cells % Nucleated RBC % Seg Neutrophils # Man Band Neutrophils # Lymphocytes # (Manual) Abs React Lymphs (Man) Monocytes # (Manual) Eosinophils # (Manual) Basophils # (Manual) Metamyelocytes # Myelocytes # Promyelocytes # Blast Cells # WBC Morphology Hypersegmented Neuts Hyposegmented Neuts Hypogranular Neuts Smudge Cells Toxic Granulation Toxic Vacuolation Dohle Bodies Pelger-Huet Anomaly Rosy Rods Platelet Estimate Clumped Platelets Plt Clumps, EDTA Large Platelets Giant Platelets Platelet Satelliting Plt Morphology Comment RBC Morphology Dimorphic RBCs Polychromasia Hypochromasia Poikilocytosis Anisocytosis Microcytosis Macrocytosis Spherocytes Pappenheimer Bodies Sickle Cells Target Cells Tear Drop Cells Ovalocytes Helmet Cells Hernandez-[place] Bodies [place] Rings [place] Cells Bite Cells Crenated Cell Elliptocytes Acanthocytes (Spur) Rouleaux Hemoglobin C Crystals Schistocytes Malaria parasites Ceasar Bodies Hem Pathologist Commnt POC ABG pH 7.292 L POC ABG pCO2 56.9 H POC ABG HCO3 27.5 POC ABG Total CO2 29 POC ABG O2 Sat 79 POC ABG Base Excess 1 FiO2 95 POC Glucose 136 H 129 H Medications & Allergies - Medications Allergies/Adverse Reactions: Allergies No Known Allergies Allergy (Unverified 08/15/18 16:49) Home Medications: Home Medications Medication Instructions Recorded Confirmed Last Taken Type Carvedilol 6.25 mg PO BID 08/15/18 08/15/18 Unknown History DULoxetine 60 mg PO QDAY 08/15/18 08/15/18 Unknown History Gabapentin 600 mg PO Q6HR PRN 08/15/18 08/15/18 Unknown History Methylphenidate 5 mg PO TID 08/15/18 08/15/18 Unknown History Morphabond ER 60 mg PO Q12HR 08/15/18 08/15/18 Unknown History Pravastatin Sodium 10 mg PO QDAY 08/15/18 08/15/18 Unknown History Tizanidine HCl 4 mg PO Q12HR 08/15/18 08/15/18 Unknown History oxyCODONE /ACETAMINOPHEN 7.5 - 325 mg PO Q8HR 08/15/18 08/15/18 Unknown History ALBUTEROL Inhaler(NF) 90 mcg IH TID 08/29/18 08/29/18 Unknown History Omeprazole-Bicarb 40-1,100 Cap 40 mg PO DAILY 08/29/18 08/29/18 Unknown History Active Medications: Generic Name Dose Route Start Last Admin Trade Name Freq PRN Reason Stop Dose Admin Acetaminophen 650 mg 08/15/18 22:12 09/05/18 11:33 Tylenol PO 650 mg Q4H PRN Administration Pain MILD(1-3)/Fever >100.5/MONDRAGON Albuterol 2.5 mg 08/17/18 17:00 Proventil IH Q3HRT PRN Shortness Of Breath Albuterol/Ipratropium 1 ampul 08/20/18 14:00 09/08/18 07:19 Duoneb *Not For Prn Use* IH 1 ampul Q6HRT [facility] Administration Lipase/Protease/Amylase 1 each 09/02/18 10:40 Pancresam Elizabeth 10,500 Unit FEEDTUBE PRN PRN For Clogged Feeding Tube Arformoterol Tartrate 15 mcg 08/18/18 20:00 09/08/18 07:19 Brovana Nebu IH Not Given Q12HRT [facility]AR Budesonide 0.5 mg 08/18/18 20:00 09/08/18 07:19 Pulmicort IH 0.5 mg Q12HRT [facility] Administration Carvedilol 3.125 mg 08/26/18 15:19 09/07/18 22:33 Coreg PO 3.125 mg BID [facility] Administration Famotidine 20 mg 09/05/18 10:00 09/07/18 22:22 Pepcid PO 20 mg BID [facility] Administration Fondaparinux 7.5 mg 09/07/18 10:00 09/07/18 14:03 Arixtra SUB-Q 7.5 mg DAILY [facility] Administration Hydralazine HCl 10 mg 08/19/18 13:59 08/29/18 14:22 Apresoline IV 10 mg Q3H PRN Administration Hydralazine HCl 25 mg 09/01/18 14:00 09/08/18 05:33 Apresoline PO 25 mg Q8HR [facility]AR Administration Hydromorphone HCl 1 mg 09/06/18 10:38 09/08/18 06:46 Dilaudid IV 1 mg Q4H PRN Administration Pain , Severe (7-10) Hydromorphone HCl 2 mg 09/06/18 12:00 09/08/18 05:32 Dilaudid PO 2 mg Q6HR [facility] Administration Hydrophilic Ointment 1 applic 08/15/18 21:55 09/01/18 09:07 Vaseline Lip Therapy TP 1 applic Q2HR PRN Administration Dry Lips Fentanyl Citrate 2,000 mcg in 100 mls @ 4.765 mls/hr 09/02/18 11:00 09/08/18 08:04 Fentanyl Drip Premix IV 4 mcg/kg/hr TITR LAMAR 19.06 mls/hr Administration Protocol 1 MCG/KG/HR Micafungin Sodium 100 mg/ 100 mls @ 100 mls/hr 09/02/18 15:00 09/07/18 11:27 Sodium Chloride IV 100 mls/hr QDAY [facility] Administration Protocol Insulin Human Lispro 0 unit 09/04/18 18:00 09/08/18 06:32 Humalog SUB-Q Not Given Q6HR [facility] Protocol Metoclopramide HCl 5 mg 08/15/18 22:50 Reglan IV Q6H PRN Nausea And Vomiting Midazolam HCl 1 mg 09/07/18 09:23 09/08/18 05:06 Versed IV 1 mg Q4H PRN Administration AGITATION Ondansetron HCl 4 mg 08/15/18 22:12 08/31/18 17:52 Zofran IV 4 mg Q8H PRN Administration Nausea And Vomiting Quetiapine Fumarate 200 mg 09/04/18 15:00 09/07/18 22:22 Seroquel PO 200 mg BID [facility] Administration Senna/Docusate Sodium 2 tab 09/06/18 11:00 09/07/18 22:22 Senokot S PO 2 tab BID [facility] Administration Simple Syrup 15 ml 09/02/18 11:24 Simple Syrup FEEDTUBE PRN PRN Hypoglycemia Simple Syrup 30 ml 09/02/18 11:24 Simple Syrup FEEDTUBE PRN PRN Hypoglycemia Sodium Bicarbonate 325 mg 09/02/18 10:40 Sodium Bicarbonate FEEDTUBE PRN PRN For Clogged Feeding Tube Sodium Chloride 10 ml 08/15/18 22:12 09/07/18 22:25 Sodium Chloride Flush Syringe 10 Ml IV 10 ml PRN PRN Administration LINE FLUSH
--- NOTE | 2018-09-08 09:45 | Progress Note ---
Assessment and Plan Assessment and plan: --Thrombocytopenia: Patient is on Lovenox, anemia requiring blood transfusion, LE DVT Hematology evaluation and recommendations noted Recommend IVC filter placement --Anemia; received total 3 units of PRBC hemoglobin 7.3 Stool for occult blood x 2 negative Consider GI evaluation if significant drop --Febrile illness; persistent low-grade fever Already on antibiotics, follow cultures, chest x-ray; airspace disease, ID following --Hypomagnesemia; Hypernatremia; resolved, --Acute hypoxic hypercapnic respiratory failure; extubated 08/29/18 Re Intubated 09/02/18 secondary to acute respiratory failure .n vent Status post bronchoscopy, findings reviewed, BAL sent for histopathology nebulizers, IV antibiotics, pulmonary critical following Wean as tolerated and extubated --Left lower extremity DVT; anticoagulation with Lovenox CTA chest to rule out PE when stable --Sepsis; aspiration pneumonia ; micafungin, meropenem and Vanco per ID --Hypertension; continue current antihypertensives --Severe malnutrition/hypoalbuminemia; Dietitian following --Acute kidney injury; probably secondary to ATN, Resolved, --Acute systolic congestive heart failure; EF 25-30%, Cardio following --Elevated Transaminases; resolved --DVT prophylaxis; on full dose Lovenox Consults and recommendations noted and appreciated Plan of care reviewed with the patient's nurse The high probability of a clinically significant, sudden or life threatening deterioration of the [respiratory, cardiology, ID, renal and metabolic] system(s) required my full and direct attention, intervention and personal management. The aggregate critical care time was [32] minutes. This time is in addition to time spent performing reported procedures but includes the following: [x] Data Review and interpretation [x] Patient assessment and monitoring of vital signs [x] Documentation [x] Medication orders and management History Interval history: Patient seen and examined medical records reviewed No new events reported by the nursing staff Clinically no change Hospitalist Physical - Constitutional Vitals: Temp Pulse Resp BP Pulse Ox 99.4 F 106 H 36 H 149/66 67 L 09/08/18 08:00 09/08/18 07:20 09/08/18 07:20 09/08/18 07:12 09/08/18 07:12 General appearance: Present: mild distress, well-nourished, obese, other (on vent) - EENT Eyes: Present: PERRL, EOM intact - Neck Neck: Present: supple, normal ROM - Respiratory Respiratory effort: normal Respiratory: bilateral: diminished, rhonchi, negative: rales, wheezing - Cardiovascular Rhythm: regular Heart Sounds: Present: S1 & S2 - Extremities Extremities: no ischemia, No edema - Abdominal General gastrointestinal: soft, non-tender, non-distended, normal bowel sounds - Integumentary Integumentary: Present: clear, warm - Psychiatric Psychiatric: other ( noncommunicative) - Neurologic Neurologic: other (noncommunicative) Results - Labs CBC & Chem 7: 09/07/18 05:40 09/08/18 10:42 Labs: Laboratory Last Values WBC 5.4 K/mm3 (4.5-11.0) 09/07/18 05:40 RBC 2.40 M/mm3 (3.65-5.03) L 09/07/18 05:40 Hgb 7.3 gm/dl (10.1-14.3) L 09/07/18 05:40 Hct 22.5 % (30.3-42.9) L 09/07/18 05:40 MCV 94 fl (79-97) 09/07/18 05:40 MCH 30 pg (28-32) 09/07/18 05:40 MCHC 32 % (30-34) 09/07/18 05:40 RDW 17.8 % (13.2-15.2) H 09/07/18 05:40 Plt Count 92 K/mm3 (140-440) L 09/07/18 05:40 Lymph % (Auto) 16.1 % (13.4-35.0) 09/06/18 04:20 [place] % (Auto) 5.8 % (0.0-7.3) 09/06/18 04:20 Eos % (Auto) 0.0 % (0.0-4.3) 09/06/18 04:20 Baso % (Auto) 0.1 % (0.0-1.8) 09/06/18 04:20 Lymph # 1.0 K/mm3 (1.2-5.4) L 09/06/18 04:20 [place] # 0.4 K/mm3 (0.0-0.8) 09/06/18 04:20 Eos # 0.0 K/mm3 (0.0-0.4) 09/06/18 04:20 Baso # 0.0 K/mm3 (0.0-0.1) 09/06/18 04:20 Add Manual Diff Complete 09/07/18 05:40 Total Counted 100 09/07/18 05:40 Seg Neutrophils % 78.0 % (40.0-70.0) H 09/06/18 04:20 Seg Neuts % (Manual) 80.0 % (40.0-70.0) H 09/07/18 05:40 Band Neutrophils % 0 % 09/07/18 05:40 Lymphocytes % (Manual) 15.0 % (13.4-35.0) 09/07/18 05:40 Reactive Lymphs % (Man) 0 % 09/07/18 05:40 Monocytes % (Manual) 2.0 % (0.0-7.3) 09/07/18 05:40 Eosinophils % (Manual) 0 % (0.0-4.3) 09/07/18 05:40 Basophils % (Manual) 0 % (0.0-1.8) 09/07/18 05:40 Metamyelocytes % 2.0 % 09/07/18 05:40 Myelocytes % 1.0 % 09/07/18 05:40 Promyelocytes % 0 % 09/07/18 05:40 Blast Cells % 0 % 09/07/18 05:40 Nucleated RBC % 1.0 % (0.0-0.9) H 09/07/18 05:40 Seg Neutrophils # 4.8 K/mm3 (1.8-7.7) 09/06/18 04:20 Seg Neutrophils # Man 4.3 K/mm3 (1.8-7.7) 09/07/18 05:40 Band Neutrophils # 0.0 K/mm3 09/07/18 05:40 Abs Lymphs (Manual) 3262 cells/uL (850-3900) 08/19/18 14:32 Lymphocytes # (Manual) 0.8 K/mm3 (1.2-5.4) L 09/07/18 05:40 Abs React Lymphs (Man) 0.0 K/mm3 09/07/18 05:40 Monocytes # (Manual) 0.1 K/mm3 (0.0-0.8) 09/07/18 05:40 Eosinophils # (Manual) 0.0 K/mm3 (0.0-0.4) 09/07/18 05:40 Basophils # (Manual) 0.0 K/mm3 (0.0-0.1) 09/07/18 05:40 Metamyelocytes # 0.1 K/mm3 09/07/18 05:40 Myelocytes # 0.1 K/mm3 09/07/18 05:40 Promyelocytes # 0.0 K/mm3 09/07/18 05:40 Blast Cells # 0.0 K/mm3 09/07/18 05:40 WBC Morphology Not Reportable 09/07/18 05:40 Hypersegmented Neuts Not Reportable 09/07/18 05:40 Hyposegmented Neuts Not Reportable 09/07/18 05:40 Hypogranular Neuts Not Reportable 09/07/18 05:40 Smudge Cells Not Reportable 09/07/18 05:40 Toxic Granulation Not Reportable 09/07/18 05:40 Toxic Vacuolation Not Reportable 09/07/18 05:40 Dohle Bodies Not Reportable 09/07/18 05:40 Pelger-Huet Anomaly Not Reportable 09/07/18 05:40 Rosy Rods Not Reportable 09/07/18 05:40 Platelet Estimate Consistent w auto 09/07/18 05:40 Clumped Platelets Not Reportable 09/07/18 05:40 Plt Clumps, EDTA Not Reportable 09/07/18 05:40 Large Platelets Rare 09/07/18 05:40 Giant Platelets Not Reportable 09/07/18 05:40 Platelet Satelliting Not Reportable 09/07/18 05:40 Plt Morphology Comment Not Reportable 09/07/18 05:40 RBC Morphology Not Reportable 09/07/18 05:40 Dimorphic RBCs Not Reportable 09/07/18 05:40 Polychromasia Not Reportable 09/07/18 05:40 Hypochromasia Rare 09/07/18 05:40 Poikilocytosis Not Reportable 09/07/18 05:40 Anisocytosis Few 09/07/18 05:40 Microcytosis Not Reportable 09/07/18 05:40 Macrocytosis Not Reportable 09/07/18 05:40 Spherocytes Not Reportable 09/07/18 05:40 Pappenheimer Bodies Not Reportable 09/07/18 05:40 Sickle Cells Not Reportable 09/07/18 05:40 Target Cells Not Reportable 09/07/18 05:40 Tear Drop Cells Not Reportable 09/07/18 05:40 Ovalocytes Not Reportable 09/07/18 05:40 Helmet Cells Not Reportable 09/07/18 05:40 [place] Bodies Not Reportable 09/07/18 05:40 [place] Rings Not Reportable 09/07/18 05:40 [place] Cells Not Reportable 09/07/18 05:40 Bite Cells Not Reportable 09/07/18 05:40 Crenated Cell Not Reportable 09/07/18 05:40 Elliptocytes Not Reportable 09/07/18 05:40 Acanthocytes (Spur) Not Reportable 09/07/18 05:40 Rouleaux Not Reportable 09/07/18 05:40 Hemoglobin C Crystals Not Reportable 09/07/18 05:40 Schistocytes Not Reportable 09/07/18 05:40 Malaria parasites Not Reportable 09/07/18 05:40 Ceasar Bodies Not Reportable 09/07/18 05:40 Hem Pathologist Commnt No 09/07/18 05:40 D-Dimer 2768.33 ng/mlDDU (0-234) H 08/15/18 18:31 Heparin Anti-Xa, Unfract Negative (Negative) 08/22/18 15:29 POC ABG pH 7.292 (7.35-7.45) L 09/08/18 06:17 POC ABG pCO2 56.9 (35-45) H 09/08/18 06:17 POC ABG pO2 73 (80-105) L 09/06/18 03:33 POC ABG HCO3 27.5 (22-26 mml/L) 09/08/18 06:17 POC ABG Total CO2 29 (23-27mmol/L) 09/08/18 06:17 POC ABG O2 Sat 79 09/08/18 06:17 POC ABG Base Excess 1 ((-2) - (+3)mmol/L) 09/08/18 06:17 VBG pH 7.187 (7.320-7.420) L* 08/15/18 18:19 FiO2 95 % 09/08/18 06:17 Sodium 144 mmol/L (137-145) 09/07/18 05:40 Potassium 3.8 mmol/L (3.6-5.0) 09/07/18 05:40 Chloride 109.8 mmol/L (98-107) H 09/07/18 05:40 Carbon Dioxide 27 mmol/L (22-30) 09/07/18 05:40 Anion Gap 11 mmol/L 09/07/18 05:40 BUN 26 mg/dL (7-17) H 09/07/18 05:40 Creatinine 0.7 mg/dL (0.7-1.2) 09/07/18 05:40 Estimated GFR > 60 ml/min 09/07/18 05:40 BUN/Creatinine Ratio 37 % 09/07/18 05:40 Glucose 118 mg/dL (65-100) H 09/07/18 05:40 POC Glucose 129 (70-105) H 09/08/18 05:48 Hemoglobin A1c 6.4 % (4-6) H 08/15/18 23:09 Lactic Acid 1.20 mmol/L (0.7-2.0) 08/22/18 15:29 Calcium 8.0 mg/dL (8.4-10.2) L 09/07/18 05:40 Phosphorus 3.30 mg/dL (2.5-4.5) 09/07/18 05:40 Magnesium 1.70 mg/dL (1.7-2.3) 09/07/18 05:40 Iron 26 ug/dL (37-170) L 09/07/18 05:40 TIBC 150 mcg/dL (250-450) L 09/07/18 05:40 Ferritin 375.0 ng/mL (13.0-400.0) 09/07/18 05:40 Total Bilirubin 0.20 mg/dL (0.1-1.2) 09/07/18 05:40 AST 88 units/L (5-40) H 09/07/18 05:40 ALT 43 units/L (7-56) 09/07/18 05:40 Alkaline Phosphatase 99 units/L (35-129) 09/07/18 05:40 Troponin T 0.317 ng/mL (0.00-0.029) H* D 08/18/18 13:39 C-Reactive Protein 5.00 mg/dL (0.00-1.30) H 08/25/18 05:20 Total Protein 5.8 g/dL (6.3-8.2) L 09/07/18 05:40 Albumin 2.1 g/dL (3.9-5) L 09/07/18 05:40 Albumin/Globulin Ratio 0.6 % 09/07/18 05:40 Triglycerides 197 mg/dL (2-149) H 08/22/18 06:45 Cholesterol 87 mg/dL (50-199) 08/15/18 18:31 LDL Cholesterol Direct 4 mg/dL (50-130) L 08/15/18 18:31 HDL Cholesterol 10 mg/dL (40-59) L 08/15/18 18:31 Cholesterol/HDL Ratio 8.70 % 08/15/18 18:31 Serotonin Release Assay See scanned results 08/22/18 15:29 Vitamin B12 388.4 pg/mL (211-911) 09/07/18 05:40 Folate 19.01 ng/mL (7.3-26.0) 09/07/18 05:40 Total Cortisol 21.4 mcg/dL () 08/25/18 08:52 Urine Color Rosemarie (Yellow) 08/15/18 19:15 Urine Turbidity Cloudy (Clear) 08/15/18 19:15 Urine pH 5.0 (5.0-7.0) 08/15/18 19:15 Ur Specific [place] 1.025 (1.003-1.030) 08/15/18 19:15 Urine Protein 30 mg/dl mg/dL (Negative) 08/15/18 19:15 Urine Glucose (UA) Neg mg/dL (Negative) 08/15/18 19:15 Urine Ketones Neg mg/dL (Negative) 08/15/18 19:15 Urine Blood Mod (Negative) 08/15/18 19:15 Urine Nitrite Neg (Negative) 08/15/18 19:15 Urine Bilirubin Neg (Negative) 08/15/18 19:15 Urine Urobilinogen 2.0 mg/dL (<2.0) 08/15/18 19:15 Ur Leukocyte Esterase Mod (Negative) 08/15/18 19:15 Urine WBC (Auto) 17.0 /HPF (0.0-6.0) H 08/15/18 19:15 Urine RBC (Auto) 5.0 /HPF (0.0-6.0) 08/15/18 19:15 Urine WBC Clumps 2+ /HPF 08/15/18 19:15 Amorphous Crystals 1+ 08/15/18 19:15 Hyaline Casts 54 /LPF 08/15/18 19:15 Granular Casts 14 /LPF 08/15/18 19:15 Urine Mucus Few /HPF 08/15/18 19:15 Vancomycin Trough 28.6 ug/mL (5.0-20.0) H 09/06/18 14:40 Salicylates < 0.3 mg/dL (2.8-20.0) L 08/15/18 19:14 Urine Opiates Screen Presumptive positive 08/15/18 19:15 Urine Methadone Screen Presumptive negative 08/15/18 19:15 Acetaminophen < 5.0 ug/mL (10.0-30.0) L 08/15/18 19:14 Ur Barbiturates Screen Presumptive negative 08/15/18 19:15 Ur Phencyclidine Scrn Presumptive negative 08/15/18 19:15 Ur Amphetamines Screen Presumptive negative 08/15/18 19:15 U Benzodiazepines Scrn Presumptive negative 08/15/18 19:15 Urine Cocaine Screen Presumptive negative 08/15/18 19:15 U Marijuana (THC) Screen Presumptive negative 08/15/18 19:15 Drugs of Abuse Note Disclamer 08/15/18 19:15 Heparin-induced Plt Ab Negative (Negative) 08/22/18 15:29 UF Heparin High Dose 0 % Release 08/22/18 15:29 NAZIA UFH Low Dose 0.1 0 % Release 08/22/18 15:29 NAZIA UFH Low Dose 0.5 0 % Release 08/22/18 15:29 Lymph Enumerat CD4/CD8 1.98 (0.86-5.00) 08/19/18 14:32 % CD3 Cells 44 % (57-85) L 08/19/18 14:32 Absolute CD3 Count 1451 cells/uL (840-3060) 08/19/18 14:32 % CD4 Cells 30 % (30-61) 08/19/18 14:32 Absolute CD4 Count 1004 cells/uL (490-1740) 08/19/18 14:32 % CD8 Cells 15 % (12-42) 08/19/18 14:32 Absolute CD8 Count 508 cells/uL (180-1170) 08/19/18 14:32 % CD19 Cells 41 % (6-29) H 08/19/18 14:32 Absolute CD19 Count 1290 cells/uL (110-660) H 08/19/18 14:32 C. difficile Toxin A&B Negative (Negative) 08/19/18 14:00 HIV 1&2 Antibody Rapid Non react (Non React) 08/18/18 13:39 HIV P24 Antigen Non react (Non React) 08/18/18 13:39 Miscellaneous Test Flexitest 1 08/30/18 10:00 Blood Type O POSITIVE 09/03/18 10:24 Antibody Screen Negative 09/03/18 10:24 Crossmatch See Detail 09/03/18 10:24 Active Medications - Current Medications Current Medications: Generic Name Dose Route Start Last Admin Trade Name Freq PRN Reason Stop Dose Admin Acetaminophen 650 mg 08/15/18 22:12 09/05/18 11:33 Tylenol PO 650 mg Q4H PRN Administration Pain MILD(1-3)/Fever >100.5/MONDRAGON Albuterol 2.5 mg 08/17/18 17:00 Proventil IH Q3HRT PRN Shortness Of Breath Albuterol/Ipratropium 1 ampul 08/20/18 14:00 09/08/18 07:19 Duoneb *Not For Prn Use* IH 1 ampul Q6HRT LAMAR Administration Lipase/Protease/Amylase 1 each 09/02/18 10:40 Pancresam Elizabeth 10,500 Unit FEEDTUBE PRN PRN For Clogged Feeding Tube Arformoterol Tartrate 15 mcg 08/18/18 20:00 09/08/18 07:19 Brovana Nebu IH Not Given Q12HRT LAMAR Budesonide 0.5 mg 08/18/18 20:00 09/08/18 07:19 Pulmicort IH 0.5 mg Q12HRT LAMAR Administration Carvedilol 3.125 mg 08/26/18 15:19 09/07/18 22:33 Coreg PO 3.125 mg BID LAMAR Administration Famotidine 20 mg 09/05/18 10:00 09/07/18 22:22 Pepcid PO 20 mg BID LAMAR Administration Fondaparinux 7.5 mg 09/07/18 10:00 09/07/18 14:03 Arixtra SUB-Q 7.5 mg DAILY LAMAR Administration Hydralazine HCl 10 mg 08/19/18 13:59 08/29/18 14:22 Apresoline IV 10 mg Q3H PRN Administration Hydralazine HCl 25 mg 09/01/18 14:00 09/08/18 05:33 Apresoline PO 25 mg Q8HR LAMAR Administration Hydromorphone HCl 1 mg 09/06/18 10:38 09/08/18 06:46 Dilaudid IV 1 mg Q4H PRN Administration Pain , Severe (7-10) Hydromorphone HCl 2 mg 09/06/18 12:00 09/08/18 05:32 Dilaudid PO 2 mg Q6HR LAMAR Administration Hydrophilic Ointment 1 applic 08/15/18 21:55 09/01/18 09:07 Vaseline Lip Therapy TP 1 applic Q2HR PRN Administration Dry Lips Fentanyl Citrate 2,000 mcg in 100 mls @ 4.765 mls/hr 09/02/18 11:00 09/08/18 08:04 Fentanyl Drip Premix IV 4 mcg/kg/hr TITR LAMAR 19.06 mls/hr Administration Protocol 1 MCG/KG/HR Micafungin Sodium 100 mg/ 100 mls @ 100 mls/hr 09/02/18 15:00 09/07/18 11:27 Sodium Chloride IV 100 mls/hr QDAY LAMAR Administration Protocol Insulin Human Lispro 0 unit 09/04/18 18:00 09/08/18 06:32 Humalog SUB-Q Not Given Q6HR [facility] Protocol Metoclopramide HCl 5 mg 08/15/18 22:50 Reglan IV Q6H PRN Nausea And Vomiting Midazolam HCl 1 mg 09/07/18 09:23 09/08/18 05:06 Versed IV 1 mg Q4H PRN Administration AGITATION Ondansetron HCl 4 mg 08/15/18 22:12 08/31/18 17:52 Zofran IV 4 mg Q8H PRN Administration Nausea And Vomiting Quetiapine Fumarate 200 mg 09/04/18 15:00 09/07/18 22:22 Seroquel PO 200 mg BID [facility] Administration Senna/Docusate Sodium 2 tab 09/06/18 11:00 09/07/18 22:22 Senokot S PO 2 tab BID LAMAR Administration Simple Syrup 15 ml 09/02/18 11:24 Simple Syrup FEEDTUBE PRN PRN Hypoglycemia Simple Syrup 30 ml 09/02/18 11:24 Simple Syrup FEEDTUBE PRN PRN Hypoglycemia Sodium Bicarbonate 325 mg 09/02/18 10:40 Sodium Bicarbonate FEEDTUBE PRN PRN For Clogged Feeding Tube Sodium Chloride 10 ml 08/15/18 22:12 09/07/18 22:25 Sodium Chloride Flush Syringe 10 Ml IV 10 ml PRN PRN Administration LINE FLUSH Nutrition/Malnutrition Assess - Dietary Evaluation Nutrition/Malnutrition Findings: Nutrition Notes Start: 08/17/18 13:57 Freq: Status: Active Protocol: Document 09/06/18 11:37 MADAY (Rec: 09/06/18 11:45 MADAY [email or web address]) Nutrition Notes Initial or Follow up Reassessment Current Diagnosis Acute Kidney Injury,COPD, Diabetes,Sepsis,Hypertension, Respiratory Failure, Hyperlipidemia Other Pertinent Diagnosis AMS, hypokalemia, NSTEMI, encephalopathy, pneu, hypernatermia, shock liver Current Diet TF - Vital High Protein at 55ml/hr Labs/Tests Reviewed (Na lab WNL) Pertinent Medications Morphine, Senokot BID Height 5 ft 7 in Weight 100.2 kg [place] Body Weight (kg) 61.36 BMI 34.6 Weight change and time frame Current wt obtained from bed scale Subjective/Other Information Pt tolerating TF at goal rate. Per RN, pt receiving 200ml water flushes q4h. Pt remains on vent support and has rectal tube. Pt also on 2 abx . Spoke with RN about necessity of scheduled senokot . RN says senokot ordered sec to morphine. Percent of energy/protein needs met: 70% energy 94% pro #1 Nutrition Diagnosis Inadequate oral intake Diagnosis Progress(for reassessment Continues documentation) Is patient on ventilator? Yes Is Patient Ambulatory and/or Out of Bed No REE-([facility]-confined to bed) [phone] Calculation Used for Recommendations 65-70% energy needs Additional Notes Pro needs 2g/kg IBW: 123g/day Fluid needs 1ml/kcal Nutrition Intervention Nutrition Support: Continue Vital High Protein at 55ml/hr. Provide 50ml water flush q4h. Kcal 1,320 Protein (gm) 116 Fluid (mL) 1,103 Goal #1 TF tolerance Goal #2 TF to meet 65-70% energy and 80-100% pro needs Follow-Up By: 09/13/18 Additional Comments F/U: stable TF, vent status, wt, decrease water flush to 50q4h if Na lab remains WNL
[2018-09-08] MEDS ORDERED: LASIX IV ONE (09:53)
--- NOTE | 2018-09-08 09:53 | Progress Note ---
Assessment and Plan Severe sepsis Intermittent fevers andleukocytosis -Fungemia on Micafungin Acute hypoxic-hypercapnic respiratory failure on MVS, re-inttubated h/o COPD Acute kidney injury, resolved Acute encephalopathy( toxic-metabolic) Aspiration pneumonia/CAP New onset cardiomyopathy, LVEF 25-30% this admission Previous echo 03/30/2016 at [facility] revealed normal LVEF Previous stress MPI 03/29/2016 at [facility] revealed no ischemia Abnormal ECG showing LBBB, chronic Anemia s/p PRBC -Recent EGD at [facility] 08/08/2018 revealing irregular Z line, gastritis and small hiatal hernia Recent colonoscopy at [facility] 08/08/2018 revealing sigmoid polyp, transverse colon polyps, inflamed hemorrhoids and diverticulosis E.coli/Staph pneumonia Thrombocytopenia resolved Hypernatremia Hypokalemia -Continue with MVS -VAP bundle addressed -Aspiration precautions -Wean supplemental oxygen to keep O2 sats 88-90% -ABG and CXR -Antibiotics/antifungal to complete course per ID -Enteric feeding for nutritional support. -Cardioprotective measures -Stress ulcer prophylaxis -Aspiration precautions -Accuchecks with glycemic control. Target glucose of 140-180 mg/dL -Continue bronchodilators with pulmonary hygiene per RT -Maintenance of sleep -wake cycle -Mobility program -Agitation and analgesia -Influenza and pneumonia vaccination per protocol ..care plan discussed at length with RN/RT at the bedside PROGNOSIS :GUARDED CONDITION: CRITICAL CODE STATUS: FULL CODE The high probability of a clinically significant, sudden or life-threatening deterioration of the [respiratory, cardiovascular, renal] system(s) required my full and direct attention, intervention and personal management. The aggregate critical care time was [35] minutes without overlap. Time includes spent on; [x] Data Review and interpretation [x] Patient assessment and monitoring of vital signs [x] Documentation [x] Medication orders and management Subjective Date of service: 09/08/18 Principal diagnosis: Acute hypoxemic hypercapnic Resp failure; AE-COPD; Acute k idney injury Interval history: Follow up: Aspiration PNA, Abnormal CXR, Hypotension, Acute renal failure, Acute encephaloapthy, Acute hypoxemic respiratory failure on MVS Seen and examined. Vitals, labs, medications, chart and imaging reviewed. 24 hours events reviewed. No fevers, no vomiting, on going agitation with desaturations with minimal movement. Remains orally intubated, critically ill. Objective Vital Signs - 12hr 09/07/18 09/07/18 09/07/18 22:00 22:15 22:24 Temperature Pulse Rate 84 84 85 Pulse Rate [ Anterior Bilateral Throughout] Respiratory 30 H 24 Rate Respiratory Rate [Anterior Bilateral Throughout] Blood Pressure 104/47 104/47 115/51 O2 Sat by Pulse 99 100 Oximetry 09/07/18 09/07/18 09/07/18 22:30 22:33 22:45 Temperature Pulse Rate 89 87 91 H Pulse Rate [ Anterior Bilateral Throughout] Respiratory 23 24 Rate Respiratory Rate [Anterior Bilateral Throughout] Blood Pressure 127/60 127/60 127/60 O2 Sat by Pulse 96 94 Oximetry 09/07/18 09/07/18 09/07/18 23:00 23:02 23:15 Temperature Pulse Rate 87 87 84 Pulse Rate [ Anterior Bilateral Throughout] Respiratory 16 21 23 Rate Respiratory Rate [Anterior Bilateral Throughout] Blood Pressure 107/53 127/60 117/54 O2 Sat by Pulse 97 99 100 Oximetry 09/07/18 09/07/18 09/07/18 23:24 23:25 23:30 Temperature Pulse Rate 86 82 81 Pulse Rate [ Anterior Bilateral Throughout] Respiratory 31 H 30 H Rate Respiratory Rate [Anterior Bilateral Throughout] Blood Pressure 107/53 117/54 111/53 O2 Sat by Pulse 100 100 100 Oximetry 09/07/18 09/08/18 09/08/18 23:45 00:00 00:15 Temperature 99.6 F Pulse Rate 79 79 79 Pulse Rate [ Anterior Bilateral Throughout] Respiratory 30 H 31 H 30 H Rate Respiratory Rate [Anterior Bilateral Throughout] Blood Pressure 107/50 106/52 108/52 O2 Sat by Pulse 100 100 100 Oximetry 09/08/18 09/08/18 09/08/18 00:30 00:45 01:00 Temperature Pulse Rate 78 81 78 Pulse Rate [ Anterior Bilateral Throughout] Respiratory 12 12 25 H Rate Respiratory Rate [Anterior Bilateral Throughout] Blood Pressure 113/53 121/59 121/52 O2 Sat by Pulse 100 100 100 Oximetry 09/08/18 09/08/18 09/08/18 01:15 01:30 01:45 Temperature Pulse Rate 74 72 72 Pulse Rate [ Anterior Bilateral Throughout] Respiratory 20 13 15 Rate Respiratory Rate [Anterior Bilateral Throughout] Blood Pressure 104/52 104/52 104/52 O2 Sat by Pulse 100 100 100 Oximetry 09/08/18 09/08/1809/08/19 01:51 02:00 02:06 Temperature Pulse Rate 72 Pulse Rate [ 71 73 Anterior Bilateral Throughout] Respiratory 18 Rate Respiratory 31 H 31 H Rate [Anterior Bilateral Throughout] Blood Pressure 105/52 O2 Sat by Pulse 100 Oximetry 09/08/18 09/08/18 09/08/18 02:15 02:30 02:45 Temperature Pulse Rate 74 73 74 Pulse Rate [ Anterior Bilateral Throughout] Respiratory 18 10 L 25 H Rate Respiratory Rate [Anterior Bilateral Throughout] Blood Pressure 111/52 114/53 112/60 O2 Sat by Pulse 100 100 100 Oximetry 09/08/18 09/08/18 09/08/18 03:00 03:15 03:30 Temperature Pulse Rate 70 71 72 Pulse Rate [ Anterior Bilateral Throughout] Respiratory 30 H 30 H 21 Rate Respiratory Rate [Anterior Bilateral Throughout] Blood Pressure 99/44 101/47 105/50 O2 Sat by Pulse 100 100 100 Oximetry 09/08/18 09/08/18 09/08/18 03:45 03:49 03:57 Temperature 99.1 F Pulse Rate 71 70 Pulse Rate [ Anterior Bilateral Throughout] Respiratory 30 H Rate Respiratory Rate [Anterior Bilateral Throughout] Blood Pressure 107/52 107/52 O2 Sat by Pulse 100 100 Oximetry 09/08/18 09/08/18 09/08/18 04:00 04:15 04:30 Temperature Pulse Rate 71 71 80 Pulse Rate [ Anterior Bilateral Throughout] Respiratory 16 11 L 20 Rate Respiratory Rate [Anterior Bilateral Throughout] Blood Pressure 107/50 113/51 123/57 O2 Sat by Pulse 100 100 94 Oximetry 09/08/18 09/08/18 09/08/18 04:45 05:01 05:15 Temperature Pulse Rate 86 88 75 Pulse Rate [ Anterior Bilateral Throughout] Respiratory 18 18 9 L Rate Respiratory Rate [Anterior Bilateral Throughout] Blood Pressure 123/57 113/51 110/47 O2 Sat by Pulse 90 89 98 Oximetry 09/08/18 09/08/18 09/08/18 05:31 05:33 05:45 Temperature Pulse Rate 79 79 81 Pulse Rate [ Anterior Bilateral Throughout] Respiratory 12 9 L Rate Respiratory Rate [Anterior Bilateral Throughout] Blood Pressure 116/48 116/48 116/48 O2 Sat by Pulse 97 97 Oximetry 09/08/18 09/08/18 09/08/18 06:01 06:15 06:31 Temperature Pulse Rate 102 H 94 H 101 H Pulse Rate [ Anterior Bilateral Throughout] Respiratory 11 L 16 13 Rate Respiratory Rate [Anterior Bilateral Throughout] Blood Pressure 131/54 172/63 174/118 O2 Sat by Pulse 79 L 88 65 L Oximetry 09/08/18 09/08/18 09/08/18 06:45 07:01 07:12 Temperature Pulse Rate 101 H 102 H 104 H Pulse Rate [ Anterior Bilateral Throughout] Respiratory 36 H 36 H Rate Respiratory Rate [Anterior Bilateral Throughout] Blood Pressure 174/118 149/66 149/66 O2 Sat by Pulse 69 L 81 L 67 L Oximetry 09/08/18 09/08/18 09/08/18 07:15 07:20 07:31 Temperature Pulse Rate 97 H 85 Pulse Rate [ 106 H Anterior Bilateral Throughout] Respiratory 35 H 30 H Rate Respiratory 36 H Rate [Anterior Bilateral Throughout] Blood Pressure 131/80 114/45 O2 Sat by Pulse 72 L 99 Oximetry 09/08/18 09/08/18 09/08/18 07:45 08:00 08:01 Temperature 99.4 F Pulse Rate 88 85 Pulse Rate [ Anterior Bilateral Throughout] Respiratory 22 18 19 Rate Respiratory Rate [Anterior Bilateral Throughout] Blood Pressure 114/45 125/50 O2 Sat by Pulse 99 98 99 Oximetry 09/08/18 09/08/18 09/08/18 08:15 08:30 08:45 Temperature Pulse Rate 88 90 77 Pulse Rate [ Anterior Bilateral Throughout] Respiratory 23 30 H 30 H Rate Respiratory Rate [Anterior Bilateral Throughout] Blood Pressure 125/50 115/49 119/50 O2 Sat by Pulse 100 99 99 Oximetry 09/08/18 09/08/18 09/08/18 09:00 09:15 09:30 Temperature Pulse Rate 75 79 77 Pulse Rate [ Anterior Bilateral Throughout] Respiratory 30 H 30 H 30 H Rate Respiratory Rate [Anterior Bilateral Throughout] Blood Pressure 110/45 110/45 113/47 O2 Sat by Pulse 99 100 98 Oximetry 09/08/18 09:45 Temperature Pulse Rate 94 H Pulse Rate [ Anterior Bilateral Throughout] Respiratory 30 H Rate Respiratory Rate [Anterior Bilateral Throughout] Blood Pressure 118/48 O2 Sat by Pulse 99 Oximetry Constitutional: appears uncomfortable, other (elderly looking CF, normocephalic and atraumatic) Eyes: non-icteric ENT: oropharynx moist, other (ETT 23 cm MARTHA) Neck: supple, no lymphadenopathy, no JVD, other (no thyromegaly) Effort: mildly labored Ascultation: Bilateral: diminished breath sounds, rales, rhonchi Percussion: Bilateral: not dull Cardiovascular: regular rate and rhythm Gastrointestinal: normoactive bowel sounds, soft, non-tender, non-distended Integumentary: normal Extremities: no cyanosis, no ischemia or petechiae, edema (Left lower extremity) Neurologic: non-focal exam (grossly), pupils equal and round, CN II-XII normal, motor strength normal and Psychiatric: other (unable to assess) CBC and BMP: 09/21/18 04:35 09/22/18 04:11 ABG, PT/INR, D-dimer: ABG POC ABG pH 7.292 (7.35-7.45) L 09/08/18 06:17 POC ABG pCO2 56.9 (35-45) H 09/08/18 06:17 POC ABG pO2 73 (80-105) L 09/06/18 03:33 POC ABG HCO3 27.5 (22-26 mml/L) 09/08/18 06:17 POC ABG Total CO2 29 (23-27mmol/L) 09/08/18 06:17 POC ABG O2 Sat 79 09/08/18 06:17 PT/INR, D-dimer D-Dimer 2768.33 ng/mlDDU (0-234) H 08/15/18 18:31 Abnormal lab findings: Abnormal Labs 08/15/18 08/15/18 08/15/18 17:52 17:52 17:52 WBC 12.7 H RBC 3.25 L Hgb Hct RDW Plt Count Lymph % (Auto) [place] % (Auto) Lymph # [place] # Seg Neutrophils % Seg Neuts % (Manual) Lymphocytes % (Manual) 6.0 L Nucleated RBC % Seg Neutrophils # Seg Neutrophils # Man Lymphocytes # (Manual) 0.8 L D-Dimer POC ABG pH POC ABG pCO2 POC ABG pO2 VBG pH Sodium Potassium 3.4 L Chloride 94.6 L Carbon Dioxide 17 L BUN 67 H Creatinine 3.5 H Glucose 131 H POC Glucose Hemoglobin A1c Lactic Acid 5.20 H* Calcium 7.6 L Phosphorus Magnesium Iron TIBC AST 887 H ALT 316 H Troponin T C-Reactive Protein Total Protein Albumin 3.1 L Triglycerides LDL Cholesterol Direct HDL Cholesterol Urine WBC (Auto) Vancomycin Trough Salicylates Acetaminophen % CD3 Cells % CD19 Cells Absolute CD19 Count Miscellaneous Test Crossmatch 08/15/18 08/15/18 08/15/18 18:11 18:19 18:31 WBC RBC Hgb Hct RDW Plt Count Lymph % (Auto) [place] % (Auto) Lymph # [place] # Seg Neutrophils % Seg Neuts % (Manual) Lymphocytes % (Manual) Nucleated RBC % Seg Neutrophils # Seg Neutrophils # Man Lymphocytes # (Manual) D-Dimer 2768.33 H POC ABG pH 7.173 L POC ABG pCO2 47.8 H POC ABG pO2 177 H VBG pH 7.187 L* Sodium Potassium Chloride Carbon Dioxide BUN Creatinine Glucose POC Glucose Hemoglobin A1c Lactic Acid Calcium Phosphorus Magnesium Iron TIBC AST ALT Troponin T C-Reactive Protein Total Protein Albumin Triglycerides LDL Cholesterol Direct HDL Cholesterol Urine WBC (Auto) Vancomycin Trough Salicylates Acetaminophen % CD3 Cells % CD19 Cells Absolute CD19 Count Miscellaneous Test Crossmatch 08/15/18 08/15/18 08/15/18 18:31 19:14 19:14 WBC RBC Hgb Hct RDW Plt Count Lymph % (Auto) [place] % (Auto) Lymph # [place] # Seg Neutrophils % Seg Neuts % (Manual) Lymphocytes % (Manual) Nucleated RBC % Seg Neutrophils # Seg Neutrophils # Man Lymphocytes # (Manual) D-Dimer POC ABG pH POC ABG pCO2 POC ABG pO2 VBG pH Sodium Potassium Chloride Carbon Dioxide BUN Creatinine Glucose POC Glucose Hemoglobin A1c Lactic Acid 2.70 H* Calcium Phosphorus Magnesium Iron TIBC AST ALT Troponin T 0.454 H* C-Reactive Protein Total Protein Albumin Triglycerides 356 H LDL Cholesterol Direct 4 L HDL Cholesterol 10 L Urine WBC (Auto) Vancomycin Trough Salicylates < 0.3 L Acetaminophen % CD3 Cells % CD19 Cells Absolute CD19 Count Miscellaneous Test Crossmatch 08/15/18 08/15/18 08/15/18 19:14 19:15 23:09 WBC RBC Hgb Hct RDW Plt Count Lymph % (Auto) [place] % (Auto) Lymph # [place] # Seg Neutrophils % Seg Neuts % (Manual) Lymphocytes % (Manual) Nucleated RBC % Seg Neutrophils # Seg Neutrophils # Man Lymphocytes # (Manual) D-Dimer POC ABG pH POC ABG pCO2 POC ABG pO2 VBG pH Sodium Potassium Chloride Carbon Dioxide BUN Creatinine Glucose POC Glucose Hemoglobin A1c Lactic Acid 3.20 H* Calcium Phosphorus Magnesium Iron TIBC AST ALT Troponin T C-Reactive Protein Total Protein Albumin Triglycerides LDL Cholesterol Direct HDL Cholesterol Urine WBC (Auto) 17.0 H Vancomycin Trough Salicylates Acetaminophen < 5.0 L % CD3 Cells % CD19 Cells Absolute CD19 Count Miscellaneous Test Crossmatch 08/15/18 08/16/18 08/16/18 23:09 01:41 05:38 WBC RBC 3.07 L Hgb 9.8 L Hct 28.7 L RDW Plt Count Lymph % (Auto) [place] % (Auto) Lymph # [place] # Seg Neutrophils % Seg Neuts % (Manual) 84.0 H Lymphocytes % (Manual) 6.0 L Nucleated RBC % 4.0 H Seg Neutrophils # Seg Neutrophils # Man Lymphocytes # (Manual) 0.5 L D-Dimer POC ABG pH 7.323 L POC ABG pCO2 34.7 L POC ABG pO2 78 L VBG pH Sodium Potassium Chloride Carbon Dioxide BUN Creatinine Glucose POC Glucose Hemoglobin A1c 6.4 H Lactic Acid Calcium Phosphorus Magnesium Iron TIBC AST ALT Troponin T C-Reactive Protein Total Protein Albumin Triglycerides LDL Cholesterol Direct HDL Cholesterol Urine WBC (Auto) Vancomycin Trough Salicylates Acetaminophen % CD3 Cells % CD19 Cells Absolute CD19 Count Miscellaneous Test Crossmatch 08/16/18 08/16/18 08/17/18 05:38 22:43 03:42 WBC RBC Hgb Hct RDW Plt Count Lymph % (Auto) [place] % (Auto) Lymph # [place] # Seg Neutrophils % Seg Neuts % (Manual) Lymphocytes % (Manual) Nucleated RBC % Seg Neutrophils # Seg Neutrophils # Man Lymphocytes # (Manual) D-Dimer POC ABG pH POC ABG pCO2 POC ABG pO2 VBG pH Sodium Potassium 2.9 L* 3.1 L 2.9 L* Chloride 108.8 H 111.9 H Carbon Dioxide 17 L 19 L 21 L BUN 62 H 40 H 33 H Creatinine 2.0 H Glucose 139 H 145 H POC Glucose Hemoglobin A1c Lactic Acid Calcium 7.8 L 8.3 L Phosphorus 1.50 L Magnesium Iron TIBC AST 619 H ALT 353 H Troponin T C-Reactive Protein Total Protein 6.1 L Albumin 2.8 L Triglycerides LDL Cholesterol Direct HDL Cholesterol Urine WBC (Auto) Vancomycin Trough Salicylates Acetaminophen % CD3 Cells % CD19 Cells Absolute CD19 Count Miscellaneous Test Crossmatch 03/08/17/18 08/18/18 11:02 16:42 03:28 WBC RBC Hgb Hct RDW Plt Count Lymph % (Auto) [place] % (Auto) Lymph # [place] # Seg Neutrophils % Seg Neuts % (Manual) Lymphocytes % (Manual) Nucleated RBC % Seg Neutrophils # Seg Neutrophils # Man Lymphocytes # (Manual) D-Dimer POC ABG pH 7.483 H 7.499 H POC ABG pCO2 POC ABG pO2 VBG pH Sodium 147 H Potassium 3.2 L Chloride 115.8 H Carbon Dioxide BUN 23 H Creatinine Glucose 121 H POC Glucose Hemoglobin A1c Lactic Acid Calcium 8.1 L Phosphorus 2.30 L D Magnesium Iron TIBC AST ALT Troponin T C-Reactive Protein Total Protein Albumin Triglycerides LDL Cholesterol Direct HDL Cholesterol Urine WBC (Auto) Vancomycin Trough Salicylates Acetaminophen % CD3 Cells % CD19 Cells Absolute CD19 Count Miscellaneous Test Crossmatch 08/18/18 08/18/18 08/18/18 04:10 13:39 13:39 WBC RBC Hgb Hct RDW Plt Count Lymph % (Auto) [place] % (Auto) Lymph # [place] # Seg Neutrophils % Seg Neuts % (Manual) Lymphocytes % (Manual) Nucleated RBC % Seg Neutrophils # Seg Neutrophils # Man Lymphocytes # (Manual) D-Dimer POC ABG pH POC ABG pCO2 POC ABG pO2 VBG pH Sodium 147 H Potassium 3.3 L Chloride 111.9 H Carbon Dioxide BUN 21 H Creatinine Glucose 113 H POC Glucose Hemoglobin A1c Lactic Acid Calcium Phosphorus 1.50 L D Magnesium Iron TIBC AST ALT Troponin T 0.317 H* D C-Reactive Protein 10.70 H Total Protein Albumin Triglycerides LDL Cholesterol Direct HDL Cholesterol Urine WBC (Auto) Vancomycin Trough Salicylates Acetaminophen % CD3 Cells % CD19 Cells Absolute CD19 Count Miscellaneous Test Crossmatch 08/18/18 08/19/18 08/19/18 16:51 03:47 04:15 WBC RBC Hgb Hct RDW Plt Count Lymph % (Auto) [place] % (Auto) Lymph # [place] # Seg Neutrophils % Seg Neuts % (Manual) Lymphocytes % (Manual) Nucleated RBC % Seg Neutrophils # Seg Neutrophils # Man Lymphocytes # (Manual) D-Dimer POC ABG pH 7.454 H 7.482 H POC ABG pCO2 POC ABG pO2 65 L VBG pH Sodium 154 H Potassium 3.3 L Chloride 115.1 H Carbon Dioxide BUN 19 H Creatinine Glucose 117 H POC Glucose Hemoglobin A1c Lactic Acid Calcium 7.8 L Phosphorus Magnesium Iron TIBC AST ALT Troponin T C-Reactive Protein Total Protein Albumin Triglycerides LDL Cholesterol Direct HDL Cholesterol Urine WBC (Auto) Vancomycin Trough Salicylates Acetaminophen % CD3 Cells % CD19 Cells Absolute CD19 Count Miscellaneous Test Crossmatch 08/19/18 08/19/18 08/20/18 14:32 16:18 03:51 WBC RBC Hgb Hct RDW Plt Count Lymph % (Auto) [place] % (Auto) Lymph # [place] # Seg Neutrophils % Seg Neuts % (Manual) Lymphocytes % (Manual) Nucleated RBC % Seg Neutrophils # Seg Neutrophils # Man Lymphocytes # (Manual) D-Dimer POC ABG pH 7.483 H POC ABG pCO2 33.4 L POC ABG pO2 51 L 74 L VBG pH Sodium Potassium Chloride Carbon Dioxide BUN Creatinine Glucose POC Glucose Hemoglobin A1c Lactic Acid Calcium Phosphorus Magnesium Iron TIBC AST ALT Troponin T C-Reactive Protein Total Protein Albumin Triglycerides LDL Cholesterol Direct HDL Cholesterol Urine WBC (Auto) Vancomycin Trough Salicylates Acetaminophen % CD3 Cells 44 L % CD19 Cells 41 H Absolute CD19 Count 1290 H Miscellaneous Test Crossmatch 08/20/18 08/21/18 08/21/18 05:25 03:54 05:45 WBC 24.1 H RBC 2.83 L Hgb 8.8 L Hct 26.7 L RDW 15.7 H Plt Count 127 L Lymph % (Auto) [place] % (Auto) Lymph # [place] # Seg Neutrophils % Seg Neuts % (Manual) 94.0 H Lymphocytes % (Manual) 4.0 L Nucleated RBC % 1.0 H Seg Neutrophils # Seg Neutrophils # Man 22.7 H Lymphocytes # (Manual) 1.0 L D-Dimer POC ABG pH POC ABG pCO2 31.9 L POC ABG pO2 66 L VBG pH Sodium 146 H D Potassium Chloride 111.2 H Carbon Dioxide BUN 24 H Creatinine Glucose 141 H POC Glucose Hemoglobin A1c Lactic Acid Calcium 8.1 L Phosphorus Magnesium Iron TIBC AST 65 H ALT 104 H Troponin T C-Reactive Protein Total Protein 6.2 L Albumin 2.6 L Triglycerides LDL Cholesterol Direct HDL Cholesterol Urine WBC (Auto) Vancomycin Trough Salicylates Acetaminophen % CD3 Cells % CD19 Cells Absolute CD19 Count Miscellaneous Test Crossmatch 08/21/18 08/22/18 08/22/18 05:45 06:20 06:45 WBC RBC Hgb Hct RDW Plt Count Lymph % (Auto) [place] % (Auto) Lymph # [place] # Seg Neutrophils % Seg Neuts % (Manual) Lymphocytes % (Manual) Nucleated RBC % Seg Neutrophils # Seg Neutrophils # Man Lymphocytes # (Manual) D-Dimer POC ABG pH POC ABG pCO2 32.9 L POC ABG pO2 VBG pH Sodium Potassium 3.5 L Chloride 109.4 H 112.4 H Carbon Dioxide 21 L 20 L BUN 50 H 61 H Creatinine 2.0 H D 1.9 H Glucose 144 H 154 H POC Glucose Hemoglobin A1c Lactic Acid Calcium 7.6 L 7.8 L Phosphorus Magnesium Iron TIBC AST ALT Troponin T C-Reactive Protein Total Protein 5.3 L Albumin 2.1 L Triglycerides LDL Cholesterol Direct HDL Cholesterol Urine WBC (Auto) Vancomycin Trough Salicylates Acetaminophen % CD3 Cells % CD19 Cells Absolute CD19 Count Miscellaneous Test Crossmatch 08/22/18 08/22/18 08/22/18 06:45 15:29 18:40 WBC RBC Hgb Hct RDW Plt Count Lymph % (Auto) [place] % (Auto) Lymph # [place] # Seg Neutrophils % Seg Neuts % (Manual) Lymphocytes % (Manual) Nucleated RBC % Seg Neutrophils # Seg Neutrophils # Man Lymphocytes # (Manual) D-Dimer POC ABG pH POC ABG pCO2 POC ABG pO2 VBG pH Sodium Potassium Chloride Carbon Dioxide BUN Creatinine Glucose POC Glucose 169 H Hemoglobin A1c Lactic Acid Calcium Phosphorus Magnesium Iron TIBC AST ALT Troponin T C-Reactive Protein 4.70 H Total Protein Albumin Triglycerides 197 H LDL Cholesterol Direct HDL Cholesterol Urine WBC (Auto) Vancomycin Trough Salicylates Acetaminophen % CD3 Cells % CD19 Cells Absolute CD19 Count Miscellaneous Test Crossmatch 08/23/18 08/23/18 08/23/18 03:59 21:19 Unknown WBC 12.1 H RBC 2.29 L Hgb 7.1 L Hct 21.7 L RDW 15.7 H Plt Count 106 L Lymph % (Auto) [place] % (Auto) Lymph # [place] # Seg Neutrophils % Seg Neuts % (Manual) 92.0 H Lymphocytes % (Manual) 4.0 L Nucleated RBC % Seg Neutrophils # Seg Neutrophils # Man 11.1 H Lymphocytes # (Manual) 0.5 L D-Dimer POC ABG pH 7.306 L POC ABG pCO2 31.3 L POC ABG pO2 119 H 75 L VBG pH Sodium Potassium Chloride Carbon Dioxide BUN Creatinine Glucose POC Glucose Hemoglobin A1c Lactic Acid Calcium Phosphorus Magnesium Iron TIBC AST ALT Troponin T C-Reactive Protein Total Protein Albumin Triglycerides LDL Cholesterol Direct HDL Cholesterol Urine WBC (Auto) Vancomycin Trough Salicylates Acetaminophen % CD3 Cells % CD19 Cells Absolute CD19 Count Miscellaneous Test Crossmatch 08/23/18 08/24/18 08/24/18 Unknown 04:18 08:30 WBC 12.8 H RBC 2.24 L Hgb 7.0 L Hct 21.1 L RDW Plt Count Lymph % (Auto) [place] % (Auto) Lymph # [place] # Seg Neutrophils % Seg Neuts % (Manual) 93.0 H Lymphocytes % (Manual) 6.0 L Nucleated RBC % Seg Neutrophils # Seg Neutrophils # Man 11.9 H Lymphocytes # (Manual) 0.8 L D-Dimer POC ABG pH POC ABG pCO2 POC ABG pO2 78 L VBG pH Sodium Potassium Chloride 115.7 H Carbon Dioxide 21 L BUN 64 H Creatinine 2.0 H Glucose 149 H POC Glucose Hemoglobin A1c Lactic Acid Calcium 7.5 L Phosphorus Magnesium Iron TIBC AST ALT Troponin T C-Reactive Protein Total Protein 4.8 L Albumin 2.0 L Triglycerides LDL Cholesterol Direct HDL Cholesterol Urine WBC (Auto) Vancomycin Trough Salicylates Acetaminophen % CD3 Cells % CD19 Cells Absolute CD19 Count Miscellaneous Test Crossmatch 08/24/18 08/24/18 08/24/18 08:30 17:44 18:28 WBC RBC Hgb Hct RDW Plt Count Lymph % (Auto) [place] % (Auto) Lymph # [place] # Seg Neutrophils % Seg Neuts % (Manual) Lymphocytes % (Manual) Nucleated RBC % Seg Neutrophils # Seg Neutrophils # Man Lymphocytes # (Manual) D-Dimer POC ABG pH 7.474 H POC ABG pCO2 POC ABG pO2 61 L VBG pH Sodium Potassium Chloride 108.3 H Carbon Dioxide 20 L BUN 65 H Creatinine 2.0 H Glucose 167 H POC Glucose 164 H Hemoglobin A1c Lactic Acid Calcium 7.7 L Phosphorus Magnesium Iron TIBC AST ALT Troponin T C-Reactive Protein Total Protein 5.3 L Albumin 2.2 L Triglycerides LDL Cholesterol Direct HDL Cholesterol Urine WBC (Auto) Vancomycin Trough Salicylates Acetaminophen % CD3 Cells % CD19 Cells Absolute CD19 Count Miscellaneous Test Crossmatch 08/25/18 08/25/18 08/25/18 03:35 05:20 05:20 WBC RBC Hgb 6.7 L Hct 21.0 L RDW Plt Count Lymph % (Auto) [place] % (Auto) Lymph # [place] # Seg Neutrophils % Seg Neuts % (Manual) Lymphocytes % (Manual) Nucleated RBC % Seg Neutrophils # Seg Neutrophils # Man Lymphocytes # (Manual) D-Dimer POC ABG pH POC ABG pCO2 POC ABG pO2 79 L VBG pH Sodium Potassium Chloride Carbon Dioxide 21 L BUN 71 H Creatinine 3.1 H D Glucose 171 H POC Glucose Hemoglobin A1c Lactic Acid Calcium 7.5 L Phosphorus Magnesium Iron TIBC AST ALT Troponin T C-Reactive Protein Total Protein Albumin Triglycerides LDL Cholesterol Direct HDL Cholesterol Urine WBC (Auto) Vancomycin Trough Salicylates Acetaminophen % CD3 Cells % CD19 Cells Absolute CD19 Count Miscellaneous Test Crossmatch 08/25/18 08/25/18 08/25/18 05:20 08:52 12:42 WBC RBC Hgb Hct RDW Plt Count Lymph % (Auto) [place] % (Auto) Lymph # [place] # Seg Neutrophils % Seg Neuts % (Manual) Lymphocytes % (Manual) Nucleated RBC % Seg Neutrophils # Seg Neutrophils # Man Lymphocytes # (Manual) D-Dimer POC ABG pH POC ABG pCO2 POC ABG pO2 VBG pH Sodium Potassium Chloride Carbon Dioxide BUN Creatinine Glucose POC Glucose 166 H Hemoglobin A1c Lactic Acid Calcium Phosphorus Magnesium Iron TIBC AST ALT Troponin T C-Reactive Protein 5.00 H Total Protein Albumin Triglycerides LDL Cholesterol Direct HDL Cholesterol Urine WBC (Auto) Vancomycin Trough Salicylates Acetaminophen % CD3 Cells % CD19 Cells Absolute CD19 Count Miscellaneous Test Crossmatch See Detail 08/25/18 08/26/18 08/26/18 18:05 00:13 04:53 WBC RBC Hgb Hct RDW Plt Count Lymph % (Auto) [place] % (Auto) Lymph # [place] # Seg Neutrophils % Seg Neuts % (Manual) Lymphocytes % (Manual) Nucleated RBC % Seg Neutrophils # Seg Neutrophils # Man Lymphocytes # (Manual) D-Dimer POC ABG pH POC ABG pCO2 30.9 L POC ABG pO2 70 L VBG pH Sodium Potassium Chloride Carbon Dioxide BUN Creatinine Glucose POC Glucose 121 H 164 H Hemoglobin A1c Lactic Acid Calcium Phosphorus Magnesium Iron TIBC AST ALT Troponin T C-Reactive Protein Total Protein Albumin Triglycerides LDL Cholesterol Direct HDL Cholesterol Urine WBC (Auto) Vancomycin Trough Salicylates Acetaminophen % CD3 Cells % CD19 Cells Absolute CD19 Count Miscellaneous Test Crossmatch 08/26/18 08/26/18 08/26/18 05:42 06:00 06:00 WBC RBC 2.62 L Hgb 7.7 L Hct 23.0 L RDW 22.0 H Plt Count Lymph % (Auto) 6.3 L [place] % (Auto) Lymph # 0.7 L [place] # Seg Neutrophils % 88.1 H Seg Neuts % (Manual) Lymphocytes % (Manual) Nucleated RBC % Seg Neutrophils # 9.6 H Seg Neutrophils # Man Lymphocytes # (Manual) D-Dimer POC ABG pH POC ABG pCO2 POC ABG pO2 VBG pH Sodium Potassium Chloride Carbon Dioxide 21 L BUN 70 H Creatinine 3.3 H Glucose 146 H POC Glucose 149 H Hemoglobin A1c Lactic Acid Calcium 8.0 L Phosphorus Magnesium Iron TIBC AST ALT Troponin T C-Reactive Protein Total Protein Albumin Triglycerides LDL Cholesterol Direct HDL Cholesterol Urine WBC (Auto) Vancomycin Trough Salicylates Acetaminophen % CD3 Cells % CD19 Cells Absolute CD19 Count Miscellaneous Test Crossmatch 08/26/18 08/26/18 08/27/18 11:37 23:54 04:35 WBC RBC 2.50 L Hgb 7.6 L Hct 22.3 L RDW 21.8 H Plt Count Lymph % (Auto) 7.3 L [place] % (Auto) Lymph # 0.7 L [place] # Seg Neutrophils % 85.6 H Seg Neuts % (Manual) Lymphocytes % (Manual) Nucleated RBC % Seg Neutrophils # 8.6 H Seg Neutrophils # Man Lymphocytes # (Manual) D-Dimer POC ABG pH POC ABG pCO2 POC ABG pO2 VBG pH Sodium Potassium Chloride Carbon Dioxide BUN Creatinine Glucose POC Glucose 183 H 150 H Hemoglobin A1c Lactic Acid Calcium Phosphorus Magnesium Iron TIBC AST ALT Troponin T C-Reactive Protein Total Protein Albumin Triglycerides LDL Cholesterol Direct HDL Cholesterol Urine WBC (Auto) Vancomycin Trough Salicylates Acetaminophen % CD3 Cells % CD19 Cells Absolute CD19 Count Miscellaneous Test Crossmatch 08/27/18 08/27/18 08/28/18 04:35 12:17 04:43 WBC RBC Hgb Hct RDW Plt Count Lymph % (Auto) [place] % (Auto) Lymph # [place] # Seg Neutrophils % Seg Neuts % (Manual) Lymphocytes % (Manual) Nucleated RBC % Seg Neutrophils # Seg Neutrophils # Man Lymphocytes # (Manual) D-Dimer POC ABG pH POC ABG pCO2 32.1 L 33.8 L POC ABG pO2 68 L 78 L VBG pH Sodium Potassium Chloride Carbon Dioxide 19 L BUN 67 H Creatinine 2.9 H Glucose 155 H POC Glucose Hemoglobin A1c Lactic Acid Calcium Phosphorus 4.70 H Magnesium Iron TIBC AST ALT Troponin T C-Reactive Protein Total Protein Albumin Triglycerides LDL Cholesterol Direct HDL Cholesterol Urine WBC (Auto) Vancomycin Trough Salicylates Acetaminophen % CD3 Cells % CD19 Cells Absolute CD19 Count Miscellaneous Test Crossmatch 08/28/18 08/28/18 08/28/18 05:03 05:20 05:20 WBC RBC 2.43 L Hgb 7.4 L Hct 21.8 L RDW 20.8 H Plt Count Lymph % (Auto) 7.6 L [place] % (Auto) 8.7 H Lymph # 0.7 L [place] # Seg Neutrophils % 82.9 H Seg Neuts % (Manual) Lymphocytes % (Manual) Nucleated RBC % Seg Neutrophils # Seg Neutrophils # Man Lymphocytes # (Manual) D-Dimer POC ABG pH POC ABG pCO2 POC ABG pO2 VBG pH Sodium Potassium Chloride 107.8 H Carbon Dioxide 21 L BUN 55 H Creatinine 2.0 H Glucose 177 H POC Glucose 160 H Hemoglobin A1c Lactic Acid Calcium Phosphorus Magnesium Iron TIBC AST ALT Troponin T C-Reactive Protein Total Protein Albumin Triglycerides LDL Cholesterol Direct HDL Cholesterol Urine WBC (Auto) Vancomycin Trough Salicylates Acetaminophen % CD3 Cells % CD19 Cells Absolute CD19 Count Miscellaneous Test Crossmatch 08/28/18 08/28/18 08/28/18 12:18 18:58 22:31 WBC RBC Hgb Hct RDW Plt Count Lymph % (Auto) [place] % (Auto) Lymph # [place] # Seg Neutrophils % Seg Neuts % (Manual) Lymphocytes % (Manual) Nucleated RBC % Seg Neutrophils # Seg Neutrophils # Man Lymphocytes # (Manual) D-Dimer POC ABG pH POC ABG pCO2 34.4 L POC ABG pO2 67 L VBG pH Sodium Potassium Chloride Carbon Dioxide BUN Creatinine Glucose POC Glucose 164 H 149 H Hemoglobin A1c Lactic Acid Calcium Phosphorus Magnesium Iron TIBC AST ALT Troponin T C-Reactive Protein Total Protein Albumin Triglycerides LDL Cholesterol Direct HDL Cholesterol Urine WBC (Auto) Vancomycin Trough Salicylates Acetaminophen % CD3 Cells % CD19 Cells Absolute CD19 Count Miscellaneous Test Crossmatch 08/28/18 08/29/18 08/29/18 23:33 05:25 05:25 WBC RBC 2.30 L Hgb 7.0 L Hct 20.9 L RDW 21.0 H Plt Count Lymph % (Auto) 11.5 L [place] % (Auto) 9.2 H Lymph # 0.8 L [place] # Seg Neutrophils % 78.8 H Seg Neuts % (Manual) Lymphocytes % (Manual) Nucleated RBC % Seg Neutrophils # Seg Neutrophils # Man Lymphocytes # (Manual) D-Dimer POC ABG pH POC ABG pCO2 POC ABG pO2 VBG pH Sodium Potassium Chloride 111.1 H Carbon Dioxide BUN 55 H Creatinine 1.8 H Glucose 162 H POC Glucose 143 H Hemoglobin A1c Lactic Acid Calcium Phosphorus Magnesium Iron TIBC AST 46 H ALT < 5 L Troponin T C-Reactive Protein Total Protein 5.7 L Albumin 2.1 L Triglycerides LDL Cholesterol Direct HDL Cholesterol Urine WBC (Auto) Vancomycin Trough Salicylates Acetaminophen % CD3 Cells % CD19 Cells Absolute CD19 Count Miscellaneous Test Crossmatch 08/29/18 08/29/18 08/30/18 18:19 23:35 05:03 WBC RBC Hgb Hct RDW Plt Count Lymph % (Auto) [place] % (Auto) Lymph # [place] # Seg Neutrophils % Seg Neuts % (Manual) Lymphocytes % (Manual) Nucleated RBC % Seg Neutrophils # Seg Neutrophils # Man Lymphocytes # (Manual) D-Dimer POC ABG pH POC ABG pCO2 POC ABG pO2 VBG pH Sodium Potassium Chloride Carbon Dioxide BUN Creatinine Glucose POC Glucose 155 H 139 H 122 H Hemoglobin A1c Lactic Acid Calcium Phosphorus Magnesium Iron TIBC AST ALT Troponin T C-Reactive Protein Total Protein Albumin Triglycerides LDL Cholesterol Direct HDL Cholesterol Urine WBC (Auto) Vancomycin Trough Salicylates Acetaminophen % CD3 Cells % CD19 Cells Absolute CD19 Count Miscellaneous Test Crossmatch 08/30/18 08/30/18 08/30/18 09:33 09:33 09:54 WBC RBC 2.58 L Hgb 7.9 L Hct 23.5 L RDW 20.9 H Plt Count Lymph % (Auto) 8.0 L [place] % (Auto) 9.7 H Lymph # 0.8 L [place] # 1.0 H Seg Neutrophils % 82.1 H Seg Neuts % (Manual) Lymphocytes % (Manual) Nucleated RBC % Seg Neutrophils # 8.2 H Seg Neutrophils # Man Lymphocytes # (Manual) D-Dimer POC ABG pH POC ABG pCO2 POC ABG pO2 VBG pH Sodium 146 H Potassium Chloride 110.7 H Carbon Dioxide BUN 56 H Creatinine 1.9 H Glucose 145 H POC Glucose Hemoglobin A1c Lactic Acid Calcium Phosphorus 4.60 H Magnesium Iron TIBC AST ALT < 5 L Troponin T C-Reactive Protein Total Protein Albumin 2.7 L Triglycerides LDL Cholesterol Direct HDL Cholesterol Urine WBC (Auto) Vancomycin Trough Salicylates Acetaminophen % CD3 Cells % CD19 Cells Absolute CD19 Count Miscellaneous Test Flexitest 1 H Crossmatch 08/30/18 08/30/18 08/30/18 09:57 11:26 18:08 WBC RBC Hgb Hct RDW Plt Count Lymph % (Auto) [place] % (Auto) Lymph # [place] # Seg Neutrophils % Seg Neuts % (Manual) Lymphocytes % (Manual) Nucleated RBC % Seg Neutrophils # Seg Neutrophils # Man Lymphocytes # (Manual) D-Dimer POC ABG pH POC ABG pCO2 POC ABG pO2 VBG pH Sodium Potassium Chloride Carbon Dioxide BUN Creatinine Glucose POC Glucose 149 H 156 H Hemoglobin A1c Lactic Acid Calcium Phosphorus Magnesium Iron TIBC AST ALT Troponin T C-Reactive Protein Total Protein Albumin Triglycerides LDL Cholesterol Direct HDL Cholesterol Urine WBC (Auto) Vancomycin Trough Salicylates Acetaminophen % CD3 Cells % CD19 Cells Absolute CD19 Count Miscellaneous Test Flexitest 1 H Crossmatch 08/30/18 08/31/18 08/31/18 23:14 05:16 08:40 WBC RBC Hgb Hct RDW Plt Count Lymph % (Auto) [place] % (Auto) Lymph # [place] # Seg Neutrophils % Seg Neuts % (Manual) Lymphocytes % (Manual) Nucleated RBC % Seg Neutrophils # Seg Neutrophils # Man Lymphocytes # (Manual) D-Dimer POC ABG pH POC ABG pCO2 POC ABG pO2 VBG pH Sodium 151 H Potassium Chloride 113.8 H Carbon Dioxide BUN 45 H Creatinine Glucose 144 H POC Glucose 117 H 133 H Hemoglobin A1c Lactic Acid Calcium Phosphorus Magnesium Iron TIBC AST ALT Troponin T C-Reactive Protein Total Protein Albumin Triglycerides LDL Cholesterol Direct HDL Cholesterol Urine WBC (Auto) Vancomycin Trough Salicylates Acetaminophen % CD3 Cells % CD19 Cells Absolute CD19 Count Miscellaneous Test Crossmatch 08/31/18 09/01/18 09/01/18 23:46 04:45 04:45 WBC RBC 2.38 L Hgb 7.3 L Hct 22.1 L RDW 21.1 H Plt Count Lymph % (Auto) [place] % (Auto) Lymph # [place] # Seg Neutrophils % Seg Neuts % (Manual) 93.0 H Lymphocytes % (Manual) 4.0 L Nucleated RBC % Seg Neutrophils # Seg Neutrophils # Man 10.1 H Lymphocytes # (Manual) 0.4 L D-Dimer POC ABG pH POC ABG pCO2 POC ABG pO2 VBG pH Sodium 156 H Potassium 3.1 L Chloride 115.2 H Carbon Dioxide BUN 34 H Creatinine Glucose 125 H POC Glucose 124 H Hemoglobin A1c Lactic Acid Calcium Phosphorus Magnesium Iron TIBC AST ALT Troponin T C-Reactive Protein Total Protein Albumin Triglycerides LDL Cholesterol Direct HDL Cholesterol Urine WBC (Auto) Vancomycin Trough Salicylates Acetaminophen % CD3 Cells % CD19 Cells Absolute CD19 Count Miscellaneous Test Crossmatch 09/01/18 09/01/18 09/01/18 05:34 11:20 17:52 WBC RBC Hgb Hct RDW Plt Count Lymph % (Auto) [place] % (Auto) Lymph # [place] # Seg Neutrophils % Seg Neuts % (Manual) Lymphocytes % (Manual) Nucleated RBC % Seg Neutrophils # Seg Neutrophils # Man Lymphocytes # (Manual) D-Dimer POC ABG pH 7.553 H POC ABG pCO2 POC ABG pO2 74 L VBG pH Sodium Potassium Chloride Carbon Dioxide BUN Creatinine Glucose POC Glucose 128 H 146 H Hemoglobin A1c Lactic Acid Calcium Phosphorus Magnesium Iron TIBC AST ALT Troponin T C-Reactive Protein Total Protein Albumin Triglycerides LDL Cholesterol Direct HDL Cholesterol Urine WBC (Auto) Vancomycin Trough Salicylates Acetaminophen % CD3 Cells % CD19 Cells Absolute CD19 Count Miscellaneous Test Crossmatch 09/01/18 09/02/18 09/02/18 17:52 04:13 04:58 WBC 16.4 H RBC 2.64 L Hgb 7.9 L Hct 24.3 L RDW 20.8 H Plt Count Lymph % (Auto) [place] % (Auto) Lymph # [place] # Seg Neutrophils % Seg Neuts % (Manual) 96.0 H Lymphocytes % (Manual) 1.0 L Nucleated RBC % Seg Neutrophils # Seg Neutrophils # Man 15.7 H Lymphocytes # (Manual) 0.2 L D-Dimer POC ABG pH 7.488 H POC ABG pCO2 POC ABG pO2 63 L VBG pH Sodium Potassium Chloride Carbon Dioxide BUN Creatinine Glucose POC Glucose 143 H Hemoglobin A1c Lactic Acid Calcium Phosphorus Magnesium Iron TIBC AST ALT Troponin T C-Reactive Protein Total Protein Albumin Triglycerides LDL Cholesterol Direct HDL Cholesterol Urine WBC (Auto) Vancomycin Trough Salicylates Acetaminophen % CD3 Cells % CD19 Cells Absolute CD19 Count Miscellaneous Test Crossmatch 09/02/18 09/02/18 09/02/18 04:58 11:03 18:18 WBC RBC Hgb Hct RDW Plt Count Lymph % (Auto) [place] % (Auto) Lymph # [place] # Seg Neutrophils % Seg Neuts % (Manual) Lymphocytes % (Manual) Nucleated RBC % Seg Neutrophils # Seg Neutrophils # Man Lymphocytes # (Manual) D-Dimer POC ABG pH 7.344 L POC ABG pCO2 52.8 H POC ABG pO2 VBG pH Sodium 158 H Potassium 2.9 L* Chloride 115.7 H Carbon Dioxide BUN 27 H Creatinine 0.6 L Glucose 128 H POC Glucose 121 H Hemoglobin A1c Lactic Acid Calcium Phosphorus Magnesium 1.60 L Iron TIBC AST 64 H ALT Troponin T C-Reactive Protein Total Protein Albumin 2.6 L Triglycerides LDL Cholesterol Direct HDL Cholesterol Urine WBC (Auto) Vancomycin Trough Salicylates Acetaminophen % CD3 Cells % CD19 Cells Absolute CD19 Count Miscellaneous Test Crossmatch 09/02/18 09/03/18 09/03/18 23:06 03:36 04:25 WBC RBC 2.20 L Hgb 6.7 L Hct 20.9 L RDW 21.1 H Plt Count Lymph % (Auto) [place] % (Auto) Lymph # [place] # Seg Neutrophils % Seg Neuts % (Manual) 90.0 H Lymphocytes % (Manual) 5.0 L Nucleated RBC % Seg Neutrophils # Seg Neutrophils # Man 8.7 H Lymphocytes # (Manual) 0.5 L D-Dimer POC ABG pH POC ABG pCO2 POC ABG pO2 54 L VBG pH Sodium Potassium Chloride Carbon Dioxide BUN Creatinine Glucose POC Glucose 121 H Hemoglobin A1c Lactic Acid Calcium Phosphorus Magnesium Iron TIBC AST ALT Troponin T C-Reactive Protein Total Protein Albumin Triglycerides LDL Cholesterol Direct HDL Cholesterol Urine WBC (Auto) Vancomycin Trough Salicylates Acetaminophen % CD3 Cells % CD19 Cells Absolute CD19 Count Miscellaneous Test Crossmatch 09/03/18 09/03/18 09/03/18 04:25 05:45 10:24 WBC RBC Hgb Hct RDW Plt Count Lymph % (Auto) [place] % (Auto) Lymph # [place] # Seg Neutrophils % Seg Neuts % (Manual) Lymphocytes % (Manual) Nucleated RBC % Seg Neutrophils # Seg Neutrophils # Man Lymphocytes # (Manual) D-Dimer POC ABG pH POC ABG pCO2 POC ABG pO2 VBG pH Sodium 158 H Potassium 3.1 L Chloride 120.4 H Carbon Dioxide BUN 25 H Creatinine 0.6 L Glucose 127 H POC Glucose 178 H Hemoglobin A1c Lactic Acid Calcium 7.9 L Phosphorus Magnesium Iron TIBC AST ALT Troponin T C-Reactive Protein Total Protein 6.0 L Albumin 2.4 L Triglycerides LDL Cholesterol Direct HDL Cholesterol Urine WBC (Auto) Vancomycin Trough Salicylates Acetaminophen % CD3 Cells % CD19 Cells Absolute CD19 Count Miscellaneous Test Crossmatch See Detail 09/03/18 09/03/18 09/04/18 11:27 23:09 04:42 WBC RBC Hgb Hct RDW Plt Count Lymph % (Auto) [place] % (Auto) Lymph # [place] # Seg Neutrophils % Seg Neuts % (Manual) Lymphocytes % (Manual) Nucleated RBC % Seg Neutrophils # Seg Neutrophils # Man Lymphocytes # (Manual) D-Dimer POC ABG pH 7.293 L POC ABG pCO2 50.2 H POC ABG pO2 VBG pH Sodium Potassium Chloride Carbon Dioxide BUN Creatinine Glucose POC Glucose 107 H 139 H Hemoglobin A1c Lactic Acid Calcium Phosphorus Magnesium Iron TIBC AST ALT Troponin T C-Reactive Protein Total Protein Albumin Triglycerides LDL Cholesterol Direct HDL Cholesterol Urine WBC (Auto) Vancomycin Trough Salicylates Acetaminophen % CD3 Cells % CD19 Cells Absolute CD19 Count Miscellaneous Test Crossmatch 09/04/18 09/04/18 09/04/18 05:00 06:30 06:30 WBC RBC 2.32 L Hgb 7.0 L Hct 21.9 L RDW 20.2 H Plt Count Lymph % (Auto) [place] % (Auto) Lymph # [place] # Seg Neutrophils % 80.1 H Seg Neuts % (Manual) Lymphocytes % (Manual) Nucleated RBC % Seg Neutrophils # 8.2 H Seg Neutrophils # Man Lymphocytes # (Manual) D-Dimer POC ABG pH POC ABG pCO2 POC ABG pO2 VBG pH Sodium 150 H D Potassium Chloride 115.9 H Carbon Dioxide BUN 21 H Creatinine 0.6 L Glucose 125 H POC Glucose 154 H Hemoglobin A1c Lactic Acid Calcium 7.9 L Phosphorus Magnesium 1.50 L Iron TIBC AST ALT Troponin T C-Reactive Protein Total Protein Albumin Triglycerides LDL Cholesterol Direct HDL Cholesterol Urine WBC (Auto) Vancomycin Trough Salicylates Acetaminophen % CD3 Cells % CD19 Cells Absolute CD19 Count Miscellaneous Test Crossmatch 09/04/18 09/04/18 09/04/18 11:20 11:51 18:27 WBC RBC Hgb Hct RDW Plt Count Lymph % (Auto) [place] % (Auto) Lymph # [place] # Seg Neutrophils % Seg Neuts % (Manual) Lymphocytes % (Manual) Nucleated RBC % Seg Neutrophils # Seg Neutrophils # Man Lymphocytes # (Manual) D-Dimer POC ABG pH 7.244 L POC ABG pCO2 54.2 H POC ABG pO2 62 L VBG pH Sodium Potassium Chloride Carbon Dioxide BUN Creatinine Glucose POC Glucose 156 H 129 H Hemoglobin A1c Lactic Acid Calcium Phosphorus Magnesium Iron TIBC AST ALT Troponin T C-Reactive Protein Total Protein Albumin Triglycerides LDL Cholesterol Direct HDL Cholesterol Urine WBC (Auto) Vancomycin Trough Salicylates Acetaminophen % CD3 Cells % CD19 Cells Absolute CD19 Count Miscellaneous Test Crossmatch 09/05/18 09/05/18 09/05/18 03:46 04:00 04:00 WBC RBC 2.13 L Hgb 6.4 L Hct 20.1 L RDW 19.9 H Plt Count 117 L Lymph % (Auto) [place] % (Auto) Lymph # 0.9 L [place] # Seg Neutrophils % 81.7 H Seg Neuts % (Manual) Lymphocytes % (Manual) Nucleated RBC % Seg Neutrophils # Seg Neutrophils # Man Lymphocytes # (Manual) D-Dimer POC ABG pH 7.282 L POC ABG pCO2 57.3 H POC ABG pO2 124 H VBG pH Sodium Potassium Chloride 111.0 H Carbon Dioxide BUN 20 H Creatinine Glucose 130 H POC Glucose Hemoglobin A1c Lactic Acid Calcium 7.8 L Phosphorus Magnesium 1.60 L Iron TIBC AST ALT Troponin T C-Reactive Protein Total Protein Albumin Triglycerides LDL Cholesterol Direct HDL Cholesterol Urine WBC (Auto) Vancomycin Trough Salicylates Acetaminophen % CD3 Cells % CD19 Cells Absolute CD19 Count Miscellaneous Test Crossmatch 09/05/18 09/05/18 09/05/18 12:15 17:24 23:24 WBC RBC Hgb Hct RDW Plt Count Lymph % (Auto) [place] % (Auto) Lymph # [place] # Seg Neutrophils % Seg Neuts % (Manual) Lymphocytes % (Manual) Nucleated RBC % Seg Neutrophils # Seg Neutrophils # Man Lymphocytes # (Manual) D-Dimer POC ABG pH POC ABG pCO2 POC ABG pO2 VBG pH Sodium Potassium Chloride Carbon Dioxide BUN Creatinine Glucose POC Glucose 143 H 116 H 116 H Hemoglobin A1c Lactic Acid Calcium Phosphorus Magnesium Iron TIBC AST ALT Troponin T C-Reactive Protein Total Protein Albumin Triglycerides LDL Cholesterol Direct HDL Cholesterol Urine WBC (Auto) Vancomycin Trough Salicylates Acetaminophen % CD3 Cells % CD19 Cells Absolute CD19 Count Miscellaneous Test Crossmatch 09/06/18 09/06/18 09/06/18 03:33 04:20 04:20 WBC RBC 2.45 L Hgb 7.4 L Hct 23.0 L RDW 18.1 H Plt Count 99 L Lymph % (Auto) [place] % (Auto) Lymph # 1.0 L [place] # Seg Neutrophils % 78.0 H Seg Neuts % (Manual) Lymphocytes % (Manual) Nucleated RBC % Seg Neutrophils # Seg Neutrophils # Man Lymphocytes # (Manual) D-Dimer POC ABG pH 7.303 L POC ABG pCO2 49.2 H POC ABG pO2 73 L VBG pH Sodium Potassium Chloride 109.3 H Carbon Dioxide BUN 24 H Creatinine Glucose 108 H POC Glucose Hemoglobin A1c Lactic Acid Calcium 8.1 L Phosphorus Magnesium Iron TIBC AST ALT Troponin T C-Reactive Protein Total Protein Albumin Triglycerides LDL Cholesterol Direct HDL Cholesterol Urine WBC (Auto) Vancomycin Trough Salicylates Acetaminophen % CD3 Cells % CD19 Cells Absolute CD19 Count Miscellaneous Test Crossmatch 09/06/18 09/06/18 09/06/18 04:55 11:29 14:40 WBC RBC Hgb Hct RDW Plt Count Lymph % (Auto) [place] % (Auto) Lymph # [place] # Seg Neutrophils % Seg Neuts % (Manual) Lymphocytes % (Manual) Nucleated RBC % Seg Neutrophils # Seg Neutrophils # Man Lymphocytes # (Manual) D-Dimer POC ABG pH POC ABG pCO2 POC ABG pO2 VBG pH Sodium Potassium Chloride Carbon Dioxide BUN Creatinine Glucose POC Glucose 124 H 149 H Hemoglobin A1c Lactic Acid Calcium Phosphorus Magnesium Iron TIBC AST ALT Troponin T C-Reactive Protein Total Protein Albumin Triglycerides LDL Cholesterol Direct HDL Cholesterol Urine WBC (Auto) Vancomycin Trough 28.6 H Salicylates Acetaminophen % CD3 Cells % CD19 Cells Absolute CD19 Count Miscellaneous Test Crossmatch 09/06/18 09/06/18 09/07/18 17:43 20:08 00:39 WBC RBC Hgb Hct RDW Plt Count Lymph % (Auto) [place] % (Auto) Lymph # [place] # Seg Neutrophils % Seg Neuts % (Manual) Lymphocytes % (Manual) Nucleated RBC % Seg Neutrophils # Seg Neutrophils # Man Lymphocytes # (Manual) D-Dimer POC ABG pH POC ABG pCO2 POC ABG pO2 VBG pH Sodium Potassium Chloride Carbon Dioxide BUN Creatinine Glucose POC Glucose 138 H 118 H 131 H Hemoglobin A1c Lactic Acid Calcium Phosphorus Magnesium Iron TIBC AST ALT Troponin T C-Reactive Protein Total Protein Albumin Triglycerides LDL Cholesterol Direct HDL Cholesterol Urine WBC (Auto) Vancomycin Trough Salicylates Acetaminophen % CD3 Cells % CD19 Cells Absolute CD19 Count Miscellaneous Test Crossmatch 09/07/18 09/07/18 09/07/18 05:40 05:40 12:03 WBC RBC 2.40 L Hgb 7.3 L Hct 22.5 L RDW 17.8 H Plt Count 92 L Lymph % (Auto) [place] % (Auto) Lymph # [place] # Seg Neutrophils % Seg Neuts % (Manual) 80.0 H Lymphocytes % (Manual) Nucleated RBC % 1.0 H Seg Neutrophils # Seg Neutrophils # Man Lymphocytes # (Manual) 0.8 L D-Dimer POC ABG pH POC ABG pCO2 POC ABG pO2 VBG pH Sodium Potassium Chloride 109.8 H Carbon Dioxide BUN 26 H Creatinine Glucose 118 H POC Glucose 145 H Hemoglobin A1c Lactic Acid Calcium 8.0 L Phosphorus Magnesium Iron 26 L TIBC 150 L AST 88 H ALT Troponin T C-Reactive Protein Total Protein 5.8 L Albumin 2.1 L Triglycerides LDL Cholesterol Direct HDL Cholesterol Urine WBC (Auto) Vancomycin Trough Salicylates Acetaminophen % CD3 Cells % CD19 Cells Absolute CD19 Count Miscellaneous Test Crossmatch 09/07/18 09/07/18 09/08/18 17:39 23:21 05:48 WBC RBC Hgb Hct RDW Plt Count Lymph % (Auto) [place] % (Auto) Lymph # [place] # Seg Neutrophils % Seg Neuts % (Manual) Lymphocytes % (Manual) Nucleated RBC % Seg Neutrophils # Seg Neutrophils # Man Lymphocytes # (Manual) D-Dimer POC ABG pH POC ABG pCO2 POC ABG pO2 VBG pH Sodium Potassium Chloride Carbon Dioxide BUN Creatinine Glucose POC Glucose 128 H 136 H 129 H Hemoglobin A1c Lactic Acid Calcium Phosphorus Magnesium Iron TIBC AST ALT Troponin T C-Reactive Protein Total Protein Albumin Triglycerides LDL Cholesterol Direct HDL Cholesterol Urine WBC (Auto) Vancomycin Trough Salicylates Acetaminophen % CD3 Cells % CD19 Cells Absolute CD19 Count Miscellaneous Test Crossmatch 09/08/18 06:17 WBC RBC Hgb Hct RDW Plt Count Lymph % (Auto) [place] % (Auto) Lymph # [place] # Seg Neutrophils % Seg Neuts % (Manual) Lymphocytes % (Manual) Nucleated RBC % Seg Neutrophils # Seg Neutrophils # Man Lymphocytes # (Manual) D-Dimer POC ABG pH 7.292 L POC ABG pCO2 56.9 H POC ABG pO2 VBG pH Sodium Potassium Chloride Carbon Dioxide BUN Creatinine Glucose POC Glucose Hemoglobin A1c Lactic Acid Calcium Phosphorus Magnesium Iron TIBC AST ALT Troponin T C-Reactive Protein Total Protein Albumin Triglycerides LDL Cholesterol Direct HDL Cholesterol Urine WBC (Auto) Vancomycin Trough Salicylates Acetaminophen % CD3 Cells % CD19 Cells Absolute CD19 Count Miscellaneous Test Crossmatch Allied health notes reviewed: RT
[2018-09-08] MEDS: MYCAMINE 100 MG in NACL 0.9% 100 ML IV SCH (10:00)
[2018-09-08] MEDS: SENOKOT S PO SCH ×2 (10:00→21:50)
[2018-09-08] MEDS: PEPCID PO SCH ×2 (10:00→21:51)
[2018-09-08] MEDS: KLOR-CON 8 PO SCH (10:00)
[2018-09-08] MEDS: ARIXTRA SUB-Q SCH (10:00)
[2018-09-08] MEDS: COREG PO SCH ×2 (10:00→21:51)
--- NOTE | 2018-09-08 10:15 | Progress Note ---
Assessment and Plan Severe sepsis Blood cultures 08/15 - yeast Sputum culture 08/15 - E.coli and Staph aureus Acute renal failure on admission - resolved Acute respiratory failure - intubated and mechanically ventilated Lactic acidosis on admission - resolved Acute transaminitis on admission Thrombocytopenia Severe Anemia -s/p blood transfusion Acute LE DVT -initiated on Arixtra Altered mental status History of COPD New onset cardiomyopathy, LVEF 25-30% this admission Previous echo 03/30/2016 at [facility] revealed normal LVEF Previous stress MPI 03/29/2016 at [facility] revealed no ischemia Abnormal ECG showing LBBB, chronic Recent EGD at [facility] 08/08/2018 revealing irregular Z line, gastritis and small histal hernia Recent colonoscopy at [facility] 08/08/2018 revealing sigmoid polyp, transverse colon polyps, inflamed hemorrhoids and diverticulosis Recommend: Continue medical therapy for new onset cardiomyopathy as tolerated. Conservative cardiac management. Subjective Date of service: 09/08/18 Principal diagnosis: Acute hypoxemic hypercapnic Resp failure; AE-COPD; Acute kidney injury Interval history: No reported cardiac events overnight. Stable sinus rhythm on telemetry monitoring. Objective Vital Signs Temp Pulse Pulse Resp Resp BP Pulse Ox 09/08/18 10:00 84 118/48 09/08/18 09:45 94 H 30 H 118/48 99 09/08/18 09:30 77 30 H 113/47 98 09/08/18 09:15 79 30 H 110/45 100 09/08/18 09:00 75 30 H 110/45 99 09/08/18 08:45 77 30 H 119/50 99 09/08/18 08:30 90 30 H 115/49 99 09/08/18 08:15 88 23 125/50 100 09/08/18 08:01 85 19 125/50 99 09/08/18 08:00 99.4 F 18 98 09/08/18 07:45 88 22 114/45 99 09/08/18 07:31 85 30 H 114/45 99 09/08/18 07:20 106 H 36 H 09/08/18 07:15 97 H 35 H 131/80 72 L 09/08/18 07:12 104 H 149/66 67 L 09/08/18 07:01 102 H 36 H 149/66 81 L 09/08/18 06:45 101 H 36 H 174/118 69 L 09/08/18 06:31 101 H 13 174/118 65 L 09/08/18 06:15 94 H 16 172/63 88 09/08/18 06:01 102 H 11 L 131/54 79 L 09/08/18 05:45 81 9 L 116/48 97 09/08/18 05:33 79 116/48 09/08/18 05:31 79 12 116/48 97 09/08/18 05:15 75 9 L 110/47 98 09/08/18 05:01 88 18 113/51 89 09/08/18 04:45 86 18 123/57 90 09/08/18 04:30 80 20 123/57 94 09/08/18 04:15 71 11 L 113/51 100 09/08/18 04:00 71 16 107/50 100 09/08/18 03:57 70 107/52 100 09/08/18 03:49 99.1 F 09/08/18 03:45 71 30 H 107/52 100 09/08/18 03:30 72 21 105/50 100 09/08/18 03:15 71 30 H 101/47 100 09/08/18 03:00 70 30 H 99/44 100 09/08/18 02:45 74 25 H 112/60 100 09/08/18 02:30 73 10 L 114/53 100 09/08/18 02:15 74 18 111/52 100 09/08/18 02:06 73 31 H 09/08/18 02:00 72 18 105/52 100 09/08/18 01:51 71 31 H 09/08/18 01:45 72 15 104/52 100 09/08/18 01:30 72 13 104/52 100 09/08/18 01:15 74 20 104/52 100 09/08/18 01:00 78 25 H 121/52 100 09/08/18 00:45 81 12 121/59 100 09/08/18 00:30 78 12 113/53 100 09/08/18 00:15 79 30 H 108/52 100 09/08/18 00:00 99.6 F 79 31 H 106/52 100 09/07/18 23:45 79 30 H 107/50 100 09/07/18 23:30 81 30 H 111/53 100 09/07/18 23:25 82 31 H 117/54 100 09/07/18 23:24 86 107/53 100 09/07/18 23:15 84 23 117/54 100 09/07/18 23:02 87 21 127/60 99 09/07/18 23:00 87 16 107/53 97 09/07/18 22:45 91 H 24 127/60 94 09/07/18 22:33 87 127/60 09/07/18 22:30 89 23 127/60 96 09/07/18 22:24 85 115/51 09/07/18 22:15 84 24 104/47 100 09/07/18 22:00 84 30 H 104/47 99 09/07/18 21:45 91 H 28 H 103/45 99 09/07/18 21:30 90 23 97/47 99 09/07/18 21:15 93 H 23 128/59 98 09/07/18 21:00 104 H 32 H 128/59 84 09/07/18 20:45 100 H 34 H 132/50 90 09/07/18 20:31 99 H 32 H 132/50 90 09/07/18 20:15 105 H 15 149/65 84 09/07/18 20:01 110 H 11 L 152/105 82 L 09/07/18 20:00 100.5 F H 11 L 82 L 09/07/18 19:46 107 H 37 H 09/07/18 19:45 101 H 30 H 146/60 89 09/07/18 19:31 101 H 105 H 16 37 H 149/65 89 09/07/18 19:25 105 H 153/72 92 09/07/18 19:15 105 H 21 145/102 84 09/07/18 19:01 104 H 23 145/102 88 09/07/18 18:45 100 H 19 141/54 87 09/07/18 18:39 33 H 09/07/18 18:31 99 H 21 141/54 86 09/07/18 18:15 95 H 22 155/80 93 09/07/18 18:00 98 H 28 H 126/61 94 09/07/18 17:45 101 H 32 H 155/80 88 09/07/18 17:39 35 H 09/07/18 17:31 110 H 18 155/80 77 L 09/07/18 17:15 94 H 16 122/45 91 09/07/18 17:00 93 H 22 122/45 89 09/07/18 16:45 90 16 122/49 93 09/07/18 16:30 87 22 122/49 91 09/07/18 16:15 89 17 117/49 91 09/07/18 16:01 86 14 114/43 89 09/07/18 16:00 99.3 F 101 H 35 H 96 09/07/18 15:45 86 20 138/57 92 09/07/18 15:39 94 H 28 H 09/07/18 15:30 93 H 16 108/61 86 09/07/18 15:15 79 13 92/41 98 09/07/18 15:12 75 26 H 09/07/18 15:00 73 30 H 92/41 100 09/07/18 14:50 75 97/47 09/07/18 14:45 73 30 H 94/43 100 09/07/18 14:30 73 30 H 93/40 100 09/07/18 14:15 75 24 100/43 100 09/07/18 14:00 76 26 H 97/47 100 09/07/18 13:45 87 16 93/41 100 09/07/18 13:33 30 H 09/07/18 13:30 90 12 92/41 100 09/07/18 13:15 77 18 97/42 100 09/07/18 13:00 79 13 94/43 99 09/07/18 12:45 79 12 96/45 100 09/07/18 12:44 78 96/45 100 09/07/18 12:33 32 H 09/07/18 12:30 79 12 99/40 100 09/07/18 12:15 78 11 L 106/31 100 09/07/18 12:00 98.3 F 76 30 H 95/43 100 09/07/18 11:45 77 14 94/41 100 09/07/18 11:30 106 H 13 94/41 100 09/07/18 11:15 81 10 L 103/48 100 09/07/18 11:00 83 14 109/45 100 09/07/18 10:45 84 10 L 105/46 100 09/07/18 10:30 87 23 100/42 100 09/07/18 10:15 89 12 85/37 99 - Physical Examination General: Other (unresponsive, on the vent) Cardiac: Positive: Reg Rate and Rhythm - Allied health notes Allied health notes reviewed: RT
--- NOTE | 2018-09-08 10:25 | Progress Note ---
Assessment and Plan Cultures: 08/15/2018 blood culture: Camryn glabrata 1 of 4 08/15/2018 sputum culture: MSSA and Escherichia coli, wade susceptible 08/18/2018 blood culture: no growth 08/18/2018 urine culture: neg 08/22/2018 blood culture: no growth 08/25/2018 blood culture: no growth 09/02/2018 BAL cultures: resp almaz. Fungal and AFB pending: No growth thus far. 09/04/2018 blood culture: no growth thus far 09/04/2018 trach aspirate: no growth Fungitell was high (consistent with Candidemia), Aspergillus galactomannan negative. A/P: 68-year-old female with COPD, arthritis, history of multiple spinal surgeries was brought to the emergency room on 08/15/2018 with altered mental status: 1) Sepsis with septic shock: resolved. 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 Patient without any history of indwelling PICC line, TPN or immunocompromised status. reported severe explosive diarrhea, N/V before admission after taken 4 days of amoxicillin for dental implant on 07/29/2018 and had a EGD / colonoscopy on 08/08/[address] [place] [address] Alcantara. I reviewed report - mild chronic gastritis, focal intestinal metaplasia, squamocolumnar mucosa with mild reflux-type changes, and tubular adenoma. -s/p fluconazole 800 mg loading dose then micafungin, s/p amphotericin D6 on 08/26 -serum Crypto negative. -08/15/2018 blood culture: Camryn glabrata -08/18/2018 blood culture: no growth today -CTA chest showed limited study due to respiratory motion artifact. No evidence of pulmonary embolism. Abnormal bilateral lung consolidation which may represent pulmonary edema or pneumonia. Mild cardiomegaly. Indeterminant mediastinal lymph nodes. -CT abdomen showed extensive bilateral lower lobe pulmonary infiltrates, rectal tube and Dodge catheter noted. NG tube at gastric antrum. Left hip prosthesis Extensive degenerative changes noted lumbar spine -TTE EF 25-30% no vegetations -HIV neg/ CD4 1004 -reviewed CT chest abd done 01/05/2019 showed cholecystectomy, mild fatty liver, postoperative changes of lumbar laminectomy with non specific fluid, 9 mm LLL pulmonary nodule which was compared to previous CT and was stable. -CRP 10-->5 3) Acute renal failure: On admission: Nephrology following. 4) Acute respiratory failure: Back on the vent. Recently completed pneumonia treatment. WBC up and low grade fever. Underwent bronch + BAL on 09/02/2018. Cul tures with no growth thus far. On abx. CTA chest 09/06/2018 negative for PE, bilateral air space disease, no air bronchograms as such. High oxygen requirements, ?ARDS 5) Right maxillary sinusitis: received empiric abx. 6) Acute encephalopathy: Likely multifactorial. CT head unremarkable for acute intracranial process. Improving. 7) Cardiomyopathy, LVEF 25-30% this admission. 8) H/O left hip prosthesis ? XR no effusion. CT no enhancement 9) Left leg DVT: on anticoagulation. Hematology following. Recs: will discontinue Micafungin today (already received adequate treatment for Candidemia) low grade fevers could be from DVT MD [facility] C: [phone] O: [phone] F: [phone] Subjective Date of service: 09/08/18 Principal diagnosis: Acute hypoxemic hypercapnic Resp failure; AE-COPD; Acute kidney injury Interval history: Low grade fevers. Remains on the vent. Still requiring 90% FiO2. Objective - Exam Narrative Exam: Physical Exam: Constitutional: awake, intubated. Head, Ears, Nose: Normocephalic, atraumatic. External ears, nose normal Eyes: Conjunctivae/corneas clear. No icterus. No ptosis. Neck: Supple, no meningeal signs Oral: intubated. Cardiovascular: S1, S2 normal. Respiratory: coarse breath sounds b/l, equal bilaterally GI: Soft, bowel sounds normal. No peritoneal signs. Rectal tube + with few liquid stool Musculoskeletal: pedal edema bilaterally. L>R Skin: No rash or abscess Hem/Lymphatic: No palpable cervical or supraclavicular nodes. No lymphangitis Psych: restless Neurological: sedated, intubated - Constitutional Vitals: Vital Signs Temp Pulse Resp BP Pulse Ox 99.4 F 84 30 H 118/48 99 09/08/18 08:00 09/08/18 10:00 09/08/18 09:45 09/08/18 10:00 09/08/18 09:45 Temperature -Last 24 Hours Temperature 99.4 F Temperature 99.1 F Temperature 99.6 F Temperature 100.5 F Temperature 99.3 F Temperature 98.3 F - Labs CBC & Chem 7: 09/07/18 05:40 09/07/18 05:40 Labs: Abnormal lab results 09/07/18 09/07/18 09/07/18 Range/Units 12:03 17:39 23:21 POC ABG pH (7.35-7.45) POC ABG pCO2 (35-45) POC Glucose 145 H 128 H 136 H (70-105) 09/08/18 09/08/18 Range/Units 05:48 06:17 POC ABG pH 7.292 L (7.35-7.45) POC ABG pCO2 56.9 H (35-45) POC Glucose 129 H (70-105)
--- NOTE | 2018-09-08 10:37 | Event Note ---
Date: 09/08/18 Reviewed chart. CTPA is negative. No PE. Infrapopliteal left lower extremity DVT is unchanged. Recommend anticoagulation if patient can tolerate anticoagulation. Saw there was concern for HIT and was transitioned to Fondaparinox. Please contact [facility] if there is inability to anticoagulate. At this time, no need for any vascular interventions.
[2018-09-08 12:04] LABS: BUN/Creatinine Ratio 40; Blood Urea Nitrogen 28 mg/dL (7-17); Calcium 8.7 mg/dL (8.4-10.2); Hemolysis Index 4
[2018-09-09] MEDS: DUONEB *Not for PRN Use IH SCH ×4 (02:25→19:13)
[2018-09-09] MEDS: fentaNYL DRIP Premix 2,000 MCG/100 ML BAG IV SCH ×4 (04:58→18:54)
[2018-09-09] MEDS: VERSED IV PRN ×2 (04:59→18:06)
[2018-09-09] MEDS: APRESOLINE PO SCH ×3 (06:06→22:14)
[2018-09-09] MEDS: DILAUDID PO SCH ×4 (06:07→23:05)
[2018-09-09] MEDS: BROVANA NEBU IH SCH ×2 (07:17→19:13)
[2018-09-09] MEDS: PULMICORT IH SCH ×2 (07:17→19:13)
[2018-09-09] MEDS: DILAUDID IV PRN ×2 (08:45→19:30)
[2018-09-09 08:58] LABS: Hematocrit 24.6 % (30.3-42.9); Hemoglobin 8.1 gm/dl (10.1-14.3); Mean Corpuscular HGB Conc 33 % (30-34); Mean Corpuscular Volume 95 fl (79-97); Platelet Count 163 K/mm3 (140-440); Red Cell Distribution Width 17.9 % (13.2-15.2)
[2018-09-09 09:11] LABS: BUN/Creatinine Ratio 46; Blood Urea Nitrogen 32 mg/dL (7-17); Calcium 8.9 mg/dL (8.4-10.2); Hemolysis Index 0
[2018-09-09] MEDS: SENOKOT S PO SCH ×2 (09:50→23:06)
[2018-09-09] MEDS: COREG PO SCH ×2 (09:50→23:07)
[2018-09-09] MEDS: PEPCID PO SCH ×2 (09:50→22:13)
[2018-09-09] MEDS: KLOR-CON 8 PO SCH (09:50)
[2018-09-09] MEDS: ARIXTRA SUB-Q SCH (09:51)
[2018-09-09] MEDS: APRESOLINE IV PRN ×3 (09:53→19:12)
[2018-09-09] MEDS ORDERED: LASIX IV SCH (10:00)
--- NOTE | 2018-09-09 10:04 | Progress Note ---
Assessment and Plan Cultures: 08/15/2018 blood culture: Camryn glabrata 1 of 4 08/15/2018 sputum culture: MSSA and Escherichia coli, wade susceptible 08/18/2018 blood culture: no growth 08/18/2018 urine culture: neg 08/22/2018 blood culture: no growth 08/25/2018 blood culture: no growth 09/02/2018 BAL cultures: resp almaz. Fungal and AFB pending: No growth thus far. 09/04/2018 blood culture: no growth thus far 09/04/2018 trach aspirate: no growth Fungitell was high (consistent with Candidemia), Aspergillus galactomannan negative. A/P: 68-year-old female with COPD, arthritis, history of multiple spinal surgeries was brought to the emergency room on 08/15/2018 with altered mental status: 1) Sepsis with septic shock: resolved. 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 Patient without any history of indwelling PICC line, TPN or immunocompromised status. reported severe explosive diarrhea, N/V before admission after taken 4 days of amoxicillin for dental implant on 07/29/2018 and had a EGD / colonoscopy on 08/08/[address] [place] [address] Alcantara. I reviewed report - mild chronic gastritis, focal intestinal metaplasia, squamocolumnar mucosa with mild reflux-type changes, and tubular adenoma. -s/p fluconazole 800 mg loading dose then micafungin, s/p amphotericin D6 on 08/26 -serum Crypto negative. -08/15/2018 blood culture: Camryn glabrata -08/18/2018 blood culture: no growth -CTA chest showed limited study due to respiratory motion artifact. No ev idence of pulmonary embolism. Abnormal bilateral lung consolidation which may represent pulmonary edema or pneumonia. Mild cardiomegaly. Indeterminant mediastinal lymph nodes. -CT abdomen showed extensive bilateral lower lobe pulmonary infiltrates, rectal tube and Dodge catheter noted. NG tube at gastric antrum. Left hip prosthesis Extensive degenerative changes noted lumbar spine -TTE EF 25-30% no vegetations -HIV neg/ CD4 1004 -reviewed CT chest abd done 01/05/2019 showed cholecystectomy, mild fatty liver, postoperative changes of lumbar laminectomy with non specific fluid, 9 mm LLL pulmonary nodule which was compared to previous CT and was stable. -CRP 10-->5 3) Acute renal failure: On admission: improved. 4) Acute respiratory failure: Back on the vent. Recently completed pneumonia treatment. WBC up and low grade fever. Underwent bronch + BAL on 09/02/2018. Cultures with no growth thus far. On abx. CTA chest 09/06/2018 negative for PE, bilateral air space disease, no air bronchograms as such. High oxygen requirements, ?ARDS v/s fluid overload. 5) Right maxillary sinusitis: received empiric abx. 6) Acute encephalopathy: Likely multifactorial. CT head unremarkable for acute intracranial process. 7) Cardiomyopathy, LVEF 25-30% this admission. 8) H/O left hip prosthesis ? XR no effusion. CT with no enhancement 9) Left leg DVT: on anticoagulation. Hematology following. Recs: off micafungin since 09/08/2018. Monitor for now. low grade fevers could be from DVT Will follow along. Discussed with son at bedside. Brando Pradhan MD [facility] C: [phone] O: [phone] F: [phone] Subjective Date of service: 09/09/18 Principal diagnosis: Acute hypoxemic hypercapnic Resp failure; AE-COPD; Acute kidney injury Interval history: low grade temperatures +, no high fever. Remains on the vent, high oxygen requirements persist, but down to 85%. Objective - Exam Narrative Exam: Physical Exam: Constitutional: awake, intubated. Head, Ears, Nose: Normocephalic, atraumatic. External ears, nose normal Eyes: Conjunctivae/corneas clear. No icterus. No ptosis. Neck: Supple, no meningeal signs Oral: intubated. Cardiovascular: S1, S2 normal. Respiratory: coarse breath sounds b/l, equal bilaterally GI: Soft, bowel sounds normal. No peritoneal signs. Musculoskeletal: pedal edema bilaterally. L>R Skin: No rash or abscess Hem/Lymphatic: No palpable cervical or supraclavicular nodes. No lymphangitis Psych: restless and somewhat agitated Neurological: awake, intubated - Constitutional Vitals: Vital Signs Temp Pulse Resp BP Pulse Ox 99.5 F 105 H 12 177/86 97 09/09/18 08:00 09/09/18 09:53 09/09/18 09:30 09/09/18 09:53 09/09/18 09:30 Temperature -Last 24 Hours Temperature 99.5 F Temperature 99.8 F Temperature 99.9 F Temperature 99.2 F Temperature 97.8 F Temperature 98.0 F Temperature 98.4 F - Labs CBC & Chem 7: 09/09/18 08:39 09/09/18 08:39 Labs: Abnormal lab results 09/08/18 09/08/18 09/08/18 Range/Units 10:06 10:42 11:06 RBC (3.65-5.03) M/mm3 Hgb (10.1-14.3) gm/dl Hct (30.3-42.9) % RDW (13.2-15.2) % POC ABG pH 7.276 L (7.35-7.45) POC ABG pCO2 65.1 H (35-45) Sodium 146 H (137-145) mmol/L Chloride 109.1 H (98-107) mmol/L BUN 28 H (7-17) mg/dL Glucose 165 H (65-100) mg/dL POC Glucose 165 H (70-105) 09/08/18 09/08/18 09/09/18 Range/Units 18:07 23:20 05:04 RBC (3.65-5.03) M/mm3 Hgb (10.1-14.3) gm/dl Hct (30.3-42.9) % RDW (13.2-15.2) % POC ABG pH (7.35-7.45) POC ABG pCO2 (35-45) Sodium (137-145) mmol/L Chloride (98-107) mmol/L BUN (7-17) mg/dL Glucose (65-100) mg/dL POC Glucose 140 H 124 H 168 H (70-105) 09/09/18 09/09/18 Range/Units 08:39 08:39 RBC 2.60 L (3.65-5.03) M/mm3 Hgb 8.1 L (10.1-14.3) gm/dl Hct 24.6 L (30.3-42.9) % RDW 17.9 H (13.2-15.2) % POC ABG pH (7.35-7.45) POC ABG pCO2 (35-45) Sodium (137-145) mmol/L Chloride (98-107) mmol/L BUN 32 H (7-17) mg/dL Glucose 150 H (65-100) mg/dL POC Glucose (70-105)
--- NOTE | 2018-09-09 10:24 | Event Note ---
Date: 09/09/18 No cardiac events No events on telemetry No indication for further cardiac intervention for the time being. Management per ICU and primary team Please re-consult cardiology if needed
[2018-09-09] MEDS: HumaLOG SUB-Q SCH ×2 (12:34→17:57)
[2018-09-09] MEDS: TYLENOL PO PRN (12:40)
--- NOTE | 2018-09-09 13:42 | Hem/Onc Progress Note ---
Assessment and Plan 1. Bilateral posterior tibial and peroneal vein deep venous thrombosis, left leg edema. 2. Thrombocytopenia. The patient was on heparin-based treatment. Now it is fondaparinux. 3. Anemia. At admission, hemoglobin was normal. The patient received blood transfusion. deficiency workup. There may be a bleeding component. 4. Pulmonary embolism study is negative. 5. Camryn infection. 6. Chronic obstructive pulmonary disease. 7. Thrombocytopenia may be medication related. Heparin antibodies has been ordered. ? micafungin 8. History of renal failure. Nephrology following. 9. Maxillary sinusitis. 10. Respiratory failure, on ventilator. 11. History of cardiomyopathy. 12. We will follow the trend of platelets. 13. The patient has Dodge catheter. 14. Encephalopathy. 15. Because of anemia - low plt, there is a question if inferior vena cava filter is better to prevent more pulmonary complications. 16. I will discuss with other team members. 09/08 IVC filter was discussed as pt has anemia pt looks at you 09/09 d/w - pt SOB - d/w them reg DVT - anemia - IVC filter plt normalized Ferritin - b12 - folate normal - iron low - will follow trache eval ongoing - Patient Problems (1) Thrombocytopenia Current Visit: Yes Status: Acute (2) DVT (deep venous thrombosis) Current Visit: Yes Status: Acute (3) Anemia Current Visit: Yes Status: Acute Subjective Date of service: 09/09/18 Principal diagnosis: anemia - DVT Interval history: pt more SOB Objective - Constitutional Vitals: Last Vital Signs Temp 101.1 F H 09/09/18 12:00 Pulse 92 H 09/09/18 13:30 Resp 34 H 09/09/18 13:30 BP 130/58 09/09/18 13:30 Pulse Ox 100 09/09/18 13:30 General appearance: other (intubated) Performance status: 4-completely disabled - EENT Eyes: EOM intact ENT: other (on vent) Lymph node exam: negative cervical - Respiratory Respiratory effort: Positive: labored Respiratory: bilateral: diminished - Cardiovascular Heart Sounds: Present: S1 & S2 Extremity abnormal: edema - Gastrointestinal Rectal Exam: deferred - Genitourinary Female genitourinary: Present: deferred - Integumentary Integumentary: warm - Musculoskeletal Musculoskeletal: generalized weakness - Neurologic Neurologic: other (not responding) - Labs Lab Results: Laboratory Results - last 24 hr 09/08/18 09/08/18 09/09/18 18:07 23:20 05:04 WBC RBC Hgb Hct MCV MCH MCHC RDW Plt Count Sodium Potassium Chloride Carbon Dioxide Anion Gap BUN Creatinine Estimated GFR BUN/Creatinine Ratio Glucose POC Glucose 140 H 124 H 168 H Calcium 09/09/18 09/09/18 09/09/18 08:39 08:39 12:41 WBC 10.1 RBC 2.60 L Hgb 8.1 L Hct 24.6 L MCV 95 MCH 31 MCHC 33 RDW 17.9 H Plt Count 163 Sodium 144 Potassium 4.1 Chloride 105.6 Carbon Dioxide 29 Anion Gap 14 BUN 32 H Creatinine 0.7 Estimated GFR > 60 BUN/Creatinine Ratio 46 Glucose 150 H POC Glucose 150 H Calcium 8.9 Medications & Allergies - Medications Allergies/Adverse Reactions: Allergies No Known Allergies Allergy (Unverified 08/15/18 16:49) Home Medications: Home Medications Medication Instructions Recorded Confirmed Last Taken Type Carvedilol 6.25 mg PO BID 08/15/18 08/15/18 Unknown History DULoxetine 60 mg PO QDAY 08/15/18 08/15/18 Unknown History Gabapentin 600 mg PO Q6HR PRN 08/15/18 08/15/18 Unknown History Methylphenidate 5 mg PO TID 08/15/18 08/15/18 Unknown History Morphabond ER 60 mg PO Q12HR 08/15/18 08/15/18 Unknown History Pravastatin Sodium 10 mg PO QDAY 08/15/18 08/15/18 Unknown History Tizanidine HCl 4 mg PO Q12HR 08/15/18 08/15/18 Unknown History oxyCODONE /ACETAMINOPHEN 7.5 - 325 mg PO Q8HR 08/15/18 08/15/18 Unknown History ALBUTEROL Inhaler(NF) 90 mcg IH TID 08/29/18 08/29/18 Unknown History Omeprazole-Bicarb 40-1,100 Cap 40 mg PO DAILY 08/29/18 08/29/18 Unknown History Active Medications: Generic Name Dose Route Start Last Admin Trade Name Freq PRN Reason Stop Dose Admin Acetaminophen 650 mg 08/15/18 22:12 09/09/18 12:40 Tylenol PO 650 mg Q4H PRN Administration Pain MILD(1-3)/Fever >100.5/MONDRAGON Albuterol 2.5 mg 08/17/18 17:00 Proventil IH Q3HRT PRN Shortness Of Breath Albuterol/Ipratropium 1 ampul 08/20/18 14:00 09/09/18 07:17 Duoneb *Not For Prn Use* IH 1 ampul Q6HRT LAMAR Administration Lipase/Protease/Amylase 1 each 09/02/18 10:40 Alis Elizabeth 10,500 Unit FEEDTUBE PRN PRN For Clogged Feeding Tube Arformoterol Tartrate 15 mcg 08/18/18 20:00 09/09/18 07:17 Brovana Nebu IH 15 mcg Q12HRT LAMAR Administration Budesonide 0.5 mg 08/18/18 20:00 09/09/18 07:17 Pulmicort IH 0.5 mg Q12HRT LAMAR Administration Carvedilol 3.125 mg 08/26/18 15:19 09/09/18 09:50 Coreg PO 3.125 mg BID LAMAR Administration Famotidine 20 mg 09/05/18 10:00 09/09/18 09:50 Pepcid PO 20 mg BID LAMAR Administration Fondaparinux 7.5 mg 09/07/18 10:00 09/09/18 09:51 Arixtra SUB-Q 7.5 mg DAILY LAMAR Administration Furosemide 40 mg 09/09/18 22:00 Lasix IV 09/10/18 10:01 BID LAMAR Hydralazine HCl 10 mg 08/19/18 13:59 09/09/18 09:53 Apresoline IV 10 mg Q3H PRN Administration Hydralazine HCl 25 mg 09/01/18 14:00 09/09/18 06:06 Apresoline PO 25 mg Q8HR LAMAR Administration Hydromorphone HCl 1 mg 09/06/18 10:38 09/09/18 08:45 Dilaudid IV 1 mg Q4H PRN Administration Pain , Severe (7-10) Hydromorphone HCl 2 mg 09/06/18 12:00 09/09/18 12:41 Dilaudid PO 2 mg Q6HR LAMAR Administration Hydrophilic Ointment 1 applic 08/15/18 21:55 09/01/18 09:07 Vaseline Lip Therapy TP 1 applic Q2HR PRN Administration Dry Lips Fentanyl Citrate 2,000 mcg in 100 mls @ 4.765 mls/hr 09/02/18 11:00 09/09/18 09:39 Fentanyl Drip Premix IV 4 mcg/kg/hr TITR LAMAR 19.06 mls/hr Administration Protocol 1 MCG/KG/HR Insulin Human Lispro 0 unit 09/04/18 18:00 09/08/18 18:00 Humalog SUB-Q Not Given Q6HR [facility] Protocol Methylprednisolone Sodium Succinate 40 mg 09/09/18 14:00 Solu-Medrol IV 09/12/18 06:01 Q8HR [facility] Metoclopramide HCl 5 mg 08/15/18 22:50 Reglan IV Q6H PRN Nausea And Vomiting Midazolam HCl 1 mg 09/07/18 09:23 09/09/18 04:59 Versed IV 1 mg Q4H PRN Administration AGITATION Ondansetron HCl 4 mg 08/15/18 22:12 08/31/18 17:52 Zofran IV 4 mg Q8H PRN Administration Nausea And Vomiting Potassium Chloride 20 meq 09/10/18 10:00 Potassium Chloride FEEDTUBE QDAY [facility] Quetiapine Fumarate 200 mg 09/04/18 15:00 09/09/18 09:50 Seroquel PO 200 mg BID LAMAR Administration Senna/Docusate Sodium 2 tab 09/06/18 11:00 09/09/18 09:50 Senokot S PO 2 tab BID LAMAR Administration Simple Syrup 15 ml 09/02/18 11:24 Simple Syrup FEEDTUBE PRN PRN Hypoglycemia Simple Syrup 30 ml 09/02/18 11:24 Simple Syrup FEEDTUBE PRN PRN Hypoglycemia Sodium Bicarbonate 325 mg 09/02/18 10:40 Sodium Bicarbonate FEEDTUBE PRN PRN For Clogged Feeding Tube Sodium Chloride 10 ml 08/15/18 22:12 09/07/18 22:25 Sodium Chloride Flush Syringe 10 Ml IV 10 ml PRN PRN Administration LINE FLUSH
--- NOTE | 2018-09-09 13:42 | Progress Note ---
Assessment and Plan Severe sepsis Intermittent fevers andleukocytosis -Fungemia on Micafungin Acute hypoxic-hypercapnic respiratory failure on MVS, re-inttubated h/o COPD Acute kidney injury, resolved Acute encephalopathy( toxic-metabolic) Aspiration pneumonia/CAP New onset cardiomyopathy, LVEF 25-30% this admission Previous echo 03/30/2016 at [facility] revealed normal LVEF Previous stress MPI 03/29/2016 at [facility] revealed no ischemia Abnormal ECG showing LBBB, chronic Anemia s/p PRBC -Recent EGD at [facility] 08/08/2018 revealing irregular Z line, gastritis and small hiatal hernia Recent colonoscopy at [facility] 08/08/2018 revealing sigmoid polyp, transverse colon polyps, inflamed hemorrhoids and diverticulosis E.coli/Staph pneumonia Thrombocytopenia resolved Hypernatremia Hypokalemia -Continue with MVS, wean PEEP to 10 and FIO2 as tolerated -Discussed with general surgery re tracheostomy agreeable to tracheostomy and PEG -VAP bundle addressed -Aspiration precautions -Wean supplemental oxygen to keep O2 sats 88-90% -ABG and CXR -Antibiotics/antifungal completed course per ID -Enteric feeding for nutritional support. -Cardioprotective measures -Stress ulcer prophylaxis -Aspiration precautions -Accuchecks with glycemic control. Target glucose of 140-180 mg/dL -Continue bronchodilators with pulmonary hygiene per RT -Maintenance of sleep -wake cycle -Mobility program -Agitation and analgesia -Influenza and pneumonia vaccination per protocol ..care plan discussed at length with RN/RT at the bedside PROGNOSIS :GUARDED CONDITION: CRITICAL CODE STATUS: FULL CODE The high probability of a clinically significant, sudden or life-threatening deterioration of the [respiratory, cardiovascular, renal] system(s) required my full and direct attention, intervention and personal management. The aggregate critical care time was [35] minutes without overlap. Time includes spent on; [x] Data Review and interpretation [x] Patient assessment and monitoring of vital signs [x] Documentation [x] Medication orders and management Subjective Date of service: 09/09/18 Principal diagnosis: anemia - dvt Interval history: Follow up: Aspiration PNA, Abnormal CXR, Hypotension, Acute renal failure, Acute encephaloapthy, Acute hypoxemic respiratory failure on MVS, Acute COPD-AE Seen and examined at bedside; 24hour events reviewed; nursing and respiratory care staff consulted; no adverse overnight events reported to me; remains on MVS; steroids for COPD and diuresis but still on 60% FiO2 and peep of 10; denies acute uncontrolled pain; is visiting; no N/V/F/C Objective Vital Signs - 12hr 09/09/18 09/09/18 09/09/18 01:45 02:00 02:15 Temperature Pulse Rate 74 76 76 Pulse Rate [ Anterior Bilateral Throughout] Pulse Rate [ Apical] Respiratory 30 H 31 H 30 H Rate Respiratory Rate [Anterior Bilateral Throughout] Blood Pressure 104/48 104/49 105/49 O2 Sat by Pulse 98 99 98 Oximetry 09/09/18 09/09/18 09/09/18 02:26 02:30 02:41 Temperature Pulse Rate 73 Pulse Rate [ 74 76 Anterior Bilateral Throughout] Pulse Rate [ Apical] Respiratory 30 H Rate Respiratory 30 H 30 H Rate [Anterior Bilateral Throughout] Blood Pressure 99/48 O2 Sat by Pulse 97 Oximetry 09/09/18 09/09/18 09/09/18 02:45 03:00 03:15 Temperature Pulse Rate 74 75 76 Pulse Rate [ Anterior Bilateral Throughout] Pulse Rate [ Apical] Respiratory 30 H 30 H 30 H Rate Respiratory Rate [Anterior Bilateral Throughout] Blood Pressure 102/49 102/49 106/51 O2 Sat by Pulse 98 100 Oximetry 09/09/18 09/09/18 09/09/18 03:30 03:44 03:45 Temperature 99.8 F H Pulse Rate 84 104 H 102 H Pulse Rate [ Anterior Bilateral Throughout] Pulse Rate [ Apical] Respiratory 15 16 Rate Respiratory Rate [Anterior Bilateral Throughout] Blood Pressure 119/55 89/75 119/55 O2 Sat by Pulse 92 89 76 L Oximetry 09/09/18 09/09/18 09/09/18 04:00 04:15 04:31 Temperature Pulse Rate 108 H 108 H 109 H Pulse Rate [ Anterior Bilateral Throughout] Pulse Rate [ 103 H Apical] Respiratory 17 14 13 Rate Respiratory Rate [Anterior Bilateral Throughout] Blood Pressure 119/55 121/100 93/62 O2 Sat by Pulse 64 L 68 L 73 L Oximetry 09/09/18 09/09/18 09/09/18 04:45 05:01 05:15 Temperature Pulse Rate 108 H 102 H 103 H Pulse Rate [ Anterior Bilateral Throughout] Pulse Rate [ Apical] Respiratory 18 33 H 16 Rate Respiratory Rate [Anterior Bilateral Throughout] Blood Pressure 93/62 129/53 129/53 O2 Sat by Pulse 72 L 85 83 L Oximetry 09/09/18 09/09/18 09/09/18 05:30 05:45 06:01 Temperature Pulse Rate 94 H 100 H 107 H Pulse Rate [ Anterior Bilateral Throughout] Pulse Rate [ Apical] Respiratory 30 H 22 13 Rate Respiratory Rate [Anterior Bilateral Throughout] Blood Pressure 117/47 117/47 153/76 O2 Sat by Pulse 91 83 L 78 L Oximetry 09/09/18 09/09/18 09/09/18 06:06 06:15 06:31 Temperature Pulse Rate 103 H 105 H 105 H Pulse Rate [ Anterior Bilateral Throughout] Pulse Rate [ Apical] Respiratory 27 H 36 H Rate Respiratory Rate [Anterior Bilateral Throughout] Blood Pressure 153/76 153/76 142/48 O2 Sat by Pulse 72 L 84 Oximetry 09/09/18 09/09/18 09/09/18 06:45 07:00 07:08 Temperature Pulse Rate 115 H 98 H 101 H Pulse Rate [ Anterior Bilateral Throughout] Pulse Rate [ Apical] Respiratory 20 23 Rate Respiratory Rate [Anterior Bilateral Throughout] Blood Pressure 135/66 126/65 126/65 O2 Sat by Pulse 83 L 88 85 Oximetry 09/09/18 09/09/18 09/09/18 07:15 07:19 07:31 Temperature Pulse Rate 102 H 101 H Pulse Rate [ 74 Anterior Bilateral Throughout] Pulse Rate [ Apical] Respiratory 10 L 21 Rate Respiratory 15 Rate [Anterior Bilateral Throughout] Blood Pressure 126/65 135/69 O2 Sat by Pulse 82 L 92 Oximetry 09/09/18 09/09/18 09/09/18 07:45 08:00 08:01 Temperature 99.5 F Pulse Rate 94 H 102 H 104 H Pulse Rate [ Anterior Bilateral Throughout] Pulse Rate [ 102 H Apical] Respiratory 27 H 18 14 Rate Respiratory Rate [Anterior Bilateral Throughout] Blood Pressure 138/61 138/61 O2 Sat by Pulse 96 65 L 89 Oximetry 09/09/18 09/09/18 09/09/18 08:15 08:30 08:45 Temperature Pulse Rate 105 H 105 H 109 H Pulse Rate [ Anterior Bilateral Throughout] Pulse Rate [ Apical] Respiratory 15 20 14 Rate Respiratory Rate [Anterior Bilateral Throughout] Blood Pressure 186/79 139/98 139/98 O2 Sat by Pulse 85 87 80 L Oximetry 09/09/18 09/09/18 09/09/18 09:00 09:15 09:30 Temperature Pulse Rate 103 H 101 H 99 H Pulse Rate [ Anterior Bilateral Throughout] Pulse Rate [ Apical] Respiratory 18 16 12 Rate Respiratory Rate [Anterior Bilateral Throughout] Blood Pressure 158/80 162/74 163/72 O2 Sat by Pulse 97 Oximetry 09/09/18 09/09/18 09/09/18 09:45 09:50 09:53 Temperature Pulse Rate 107 H 108 H 105 H Pulse Rate [ Anterior Bilateral Throughout] Pulse Rate [ Apical] Respiratory 12 Rate Respiratory Rate [Anterior Bilateral Throughout] Blood Pressure 163/72 166/86 177/86 O2 Sat by Pulse 87 Oximetry 09/09/18 09/09/18 09/09/18 10:00 10:15 10:30 Temperature Pulse Rate 102 H 109 H 101 H Pulse Rate [ Anterior Bilateral Throughout] Pulse Rate [ Apical] Respiratory 11 L 16 24 Rate Respiratory Rate [Anterior Bilateral Throughout] Blood Pressure 177/86 121/99 124/52 O2 Sat by Pulse 92 84 99 Oximetry 09/09/18 09/09/18 09/09/18 10:45 11:00 11:15 Temperature Pulse Rate 99 H 98 H 99 H Pulse Rate [ Anterior Bilateral Throughout] Pulse Rate [ Apical] Respiratory 16 17 18 Rate Respiratory Rate [Anterior Bilateral Throughout] Blood Pressure 124/53 124/52 130/61 O2 Sat by Pulse 100 100 100 Oximetry 09/09/18 09/09/18 09/09/18 11:30 11:45 11:52 Temperature Pulse Rate 97 H 96 H 102 H Pulse Rate [ Anterior Bilateral Throughout] Pulse Rate [ Apical] Respiratory 15 18 Rate Respiratory Rate [Anterior Bilateral Throughout] Blood Pressure 129/61 122/63 O2 Sat by Pulse 99 100 92 Oximetry 09/09/18 09/09/18 09/09/18 12:00 12:15 12:31 Temperature 101.1 F H Pulse Rate 97 H 98 H 96 H Pulse Rate [ Anterior Bilateral Throughout] Pulse Rate [ Apical] Respiratory 22 16 28 H Rate Respiratory Rate [Anterior Bilateral Throughout] Blood Pressure 112/61 112/61 116/62 O2 Sat by Pulse 100 100 99 Oximetry 09/09/18 09/09/18 09/09/18 12:45 13:01 13:15 Temperature Pulse Rate 98 H 99 H 94 H Pulse Rate [ Anterior Bilateral Throughout] Pulse Rate [ Apical] Respiratory 13 19 12 Rate Respiratory Rate [Anterior Bilateral Throughout] Blood Pressure 131/68 139/63 138/60 O2 Sat by Pulse 100 100 100 Oximetry 09/09/18 13:30 Temperature Pulse Rate 92 H Pulse Rate [ Anterior Bilateral Throughout] Pulse Rate [ Apical] Respiratory 34 H Rate Respiratory Rate [Anterior Bilateral Throughout] Blood Pressure 130/58 O2 Sat by Pulse 100 Oximetry Constitutional: appears uncomfortable, other (elderly looking CF, normocephalic and atraumatic) Eyes: non-icteric ENT: oropharynx moist, other (ETT 23 cm MARTHA) Neck: supple, no lymphadenopathy, no JVD, other (no thyromegaly) Effort: mildly labored Ascultation: Bilateral: diminished breath sounds, rales, rhonchi Percussion: Bilateral: not dull Cardiovascular: regular rate and rhythm Gastrointestinal: normoactive bowel sounds, soft, non-tender, non-distended Integumentary: normal Extremities: no cyanosis, no ischemia or petechiae, edema (Left lower extremity) Neurologic: non-focal exam (grossly), pupils equal and round, CN II-XII normal, motor strength normal and Psychiatric: other (unable to assess) CBC and BMP: 09/21/18 04:35 09/22/18 04:11 ABG, PT/INR, D-dimer: ABG POC ABG pH 7.276 (7.35-7.45) L 09/08/18 10:06 POC ABG pCO2 65.1 (35-45) H 09/08/18 10:06 POC ABG pO2 93 (80-105) 09/08/18 10:06 POC ABG HCO3 30.3 (22-26 mml/L) 09/08/18 10:06 POC ABG Total CO2 32 (23-27mmol/L) 09/08/18 10:06 POC ABG O2 Sat 96 09/08/18 10:06 PT/INR, D-dimer D-Dimer 2768.33 ng/mlDDU (0-234) H 08/15/18 18:31 Abnormal lab findings: Abnormal Labs 08/15/18 08/15/18 08/15/18 17:52 17:52 17:52 WBC 12.7 H RBC 3.25 L Hgb Hct RDW Plt Count Lymph % (Auto) [place] % (Auto) Lymph # [place] # Seg Neutrophils % Seg Neuts % (Manual) Lymphocytes % (Manual) 6.0 L Nucleated RBC % Seg Neutrophils # Seg Neutrophils # Man Lymphocytes # (Manual) 0.8 L D-Dimer POC ABG pH POC ABG pCO2 POC ABG pO2 VBG pH Sodium Potassium 3.4 L Chloride 94.6 L Carbon Dioxide 17 L BUN 67 H Creatinine 3.5 H Glucose 131 H POC Glucose Hemoglobin A1c Lactic Acid 5.20 H* Calcium 7.6 L Phosphorus Magnesium Iron TIBC AST 887 H ALT 316 H Troponin T C-Reactive Protein Total Protein Albumin 3.1 L Triglycerides LDL Cholesterol Direct HDL Cholesterol Urine WBC (Auto) Vancomycin Trough Salicylates Acetaminophen % CD3 Cells % CD19 Cells Absolute CD19 Count Miscellaneous Test Crossmatch 08/15/18 08/15/18 08/15/18 18:11 18:19 18:31 WBC RBC Hgb Hct RDW Plt Count Lymph % (Auto) [place] % (Auto) Lymph # [place] # Seg Neutrophils % Seg Neuts % (Manual) Lymphocytes % (Manual) Nucleated RBC % Seg Neutrophils # Seg Neutrophils # Man Lymphocytes # (Manual) D-Dimer 2768.33 H POC ABG pH 7.173 L POC ABG pCO2 47.8 H POC ABG pO2 177 H VBG pH 7.187 L* Sodium Potassium Chloride Carbon Dioxide BUN Creatinine Glucose POC Glucose Hemoglobin A1c Lactic Acid Calcium Phosphorus Magnesium Iron TIBC AST ALT Troponin T C-Reactive Protein Total Protein Albumin Triglycerides LDL Cholesterol Direct HDL Cholesterol Urine WBC (Auto) Vancomycin Trough Salicylates Acetaminophen % CD3 Cells % CD19 Cells Absolute CD19 Count Miscellaneous Test Crossmatch 08/15/18 08/15/18 08/15/18 18:31 19:14 19:14 WBC RBC Hgb Hct RDW Plt Count Lymph % (Auto) [place] % (Auto) Lymph # [place] # Seg Neutrophils % Seg Neuts % (Manual) Lymphocytes % (Manual) Nucleated RBC % Seg Neutrophils # Seg Neutrophils # Man Lymphocytes # (Manual) D-Dimer POC ABG pH POC ABG pCO2 POC ABG pO2 VBG pH Sodium Potassium Chloride Carbon Dioxide BUN Creatinine Glucose POC Glucose Hemoglobin A1c Lactic Acid 2.70 H* Calcium Phosphorus Magnesium Iron TIBC AST ALT Troponin T 0.454 H* C-Reactive Protein Total Protein Albumin Triglycerides 356 H LDL Cholesterol Direct 4 L HDL Cholesterol 10 L Urine WBC (Auto) Vancomycin Trough Salicylates < 0.3 L Acetaminophen % CD3 Cells % CD19 Cells Absolute CD19 Count Miscellaneous Test Crossmatch 08/15/18 08/15/18 08/15/18 19:14 19:15 23:09 WBC RBC Hgb Hct RDW Plt Count Lymph % (Auto) [place] % (Auto) Lymph # [place] # Seg Neutrophils % Seg Neuts % (Manual) Lymphocytes % (Manual) Nucleated RBC % Seg Neutrophils # Seg Neutrophils # Man Lymphocytes # (Manual) D-Dimer POC ABG pH POC ABG pCO2 POC ABG pO2 VBG pH Sodium Potassium Chloride Carbon Dioxide BUN Creatinine Glucose POC Glucose Hemoglobin A1c Lactic Acid 3.20 H* Calcium Phosphorus Magnesium Iron TIBC AST ALT Troponin T C-Reactive Protein Total Protein Albumin Triglycerides LDL Cholesterol Direct HDL Cholesterol Urine WBC (Auto) 17.0 H Vancomycin Trough Salicylates Acetaminophen < 5.0 L % CD3 Cells % CD19 Cells Absolute CD19 Count Miscellaneous Test Crossmatch 08/15/18 08/16/18 08/16/18 23:09 01:41 05:38 WBC RBC 3.07 L Hgb 9.8 L Hct 28.7 L RDW Plt Count Lymph % (Auto) [place] % (Auto) Lymph # [place] # Seg Neutrophils % Seg Neuts % (Manual) 84.0 H Lymphocytes % (Manual) 6.0 L Nucleated RBC % 4.0 H Seg Neutrophils # Seg Neutrophils # Man Lymphocytes # (Manual) 0.5 L D-Dimer POC ABG pH 7.323 L POC ABG pCO2 34.7 L POC ABG pO2 78 L VBG pH Sodium Potassium Chloride Carbon Dioxide BUN Creatinine Glucose POC Glucose Hemoglobin A1c 6.4 H Lactic Acid Calcium Phosphorus Magnesium Iron TIBC AST ALT Troponin T C-Reactive Protein Total Protein Albumin Triglycerides LDL Cholesterol Direct HDL Cholesterol Urine WBC (Auto) Vancomycin Trough Salicylates Acetaminophen % CD3 Cells % CD19 Cells Absolute CD19 Count Miscellaneous Test Crossmatch 08/16/18 08/16/18 08/17/18 05:38 22:43 03:42 WBC RBC Hgb Hct RDW Plt Count Lymph % (Auto) [place] % (Auto) Lymph # [place] # Seg Neutrophils % Seg Neuts % (Manual) Lymphocytes % (Manual) Nucleated RBC % Seg Neutrophils # Seg Neutrophils # Man Lymphocytes # (Manual) D-Dimer POC ABG pH POC ABG pCO2 POC ABG pO2 VBG pH Sodium Potassium 2.9 L* 3.1 L 2.9 L* Chloride 108.8 H 111.9 H Carbon Dioxide 17 L 19 L 21 L BUN 62 H 40 H 33 H Creatinine 2.0 H Glucose 139 H 145 H POC Glucose Hemoglobin A1c Lactic Acid Calcium 7.8 L 8.3 L Phosphorus 1.50 L Magnesium Iron TIBC AST 619 H ALT 353 H Troponin T C-Reactive Protein Total Protein 6.1 L Albumin 2.8 L Triglycerides LDL Cholesterol Direct HDL Cholesterol Urine WBC (Auto) Vancomycin Trough Salicylates Acetaminophen % CD3 Cells % CD19 Cells Absolute CD19 Count Miscellaneous Test Crossmatch 08/17/18 08/17/18 08/18/18 11:02 16:42 03:28 WBC RBC Hgb Hct RDW Plt Count Lymph % (Auto) [place] % (Auto) Lymph # [place] # Seg Neutrophils % Seg Neuts % (Manual) Lymphocytes % (Manual) Nucleated RBC % Seg Neutrophils # Seg Neutrophils # Man Lymphocytes # (Manual) D-Dimer POC ABG pH 7.483 H 7.499 H POC ABG pCO2 POC ABG pO2 VBG pH Sodium 147 H Potassium 3.2 L Chloride 115.8 H Carbon Dioxide BUN 23 H Creatinine Glucose 121 H POC Glucose Hemoglobin A1c Lactic Acid Calcium 8.1 L Phosphorus 2.30 L D Magnesium Iron TIBC AST ALT Troponin T C-Reactive Protein Total Protein Albumin Triglycerides LDL Cholesterol Direct HDL Cholesterol Urine WBC (Auto) Vancomycin Trough Salicylates Acetaminophen % CD3 Cells % CD19 Cells Absolute CD19 Count Miscellaneous Test Crossmatch 08/18/18 08/18/18 08/18/18 04:10 13:39 13:39 WBC RBC Hgb Hct RDW Plt Count Lymph % (Auto) [place] % (Auto) Lymph # [place] # Seg Neutrophils % Seg Neuts % (Manual) Lymphocytes % (Manual) Nucleated RBC % Seg Neutrophils # Seg Neutrophils # Man Lymphocytes # (Manual) D-Dimer POC ABG pH POC ABG pCO2 POC ABG pO2 VBG pH Sodium 147 H Potassium 3.3 L Chloride 111.9 H Carbon Dioxide BUN 21 H Creatinine Glucose 113 H POC Glucose Hemoglobin A1c Lactic Acid Calcium Phosphorus 1.50 L D Magnesium Iron TIBC AST ALT Troponin T 0.317 H* D C-Reactive Protein 10.70 H Total Protein Albumin Triglycerides LDL Cholesterol Direct HDL Cholesterol Urine WBC (Auto) Vancomycin Trough Salicylates Acetaminophen % CD3 Cells % CD19 Cells Absolute CD19 Count Miscellaneous Test Crossmatch 08/18/18 08/19/18 08/19/18 16:51 03:47 04:15 WBC RBC Hgb Hct RDW Plt Count Lymph % (Auto) [place] % (Auto) Lymph # [place] # Seg Neutrophils % Seg Neuts % (Manual) Lymphocytes % (Manual) Nucleated RBC % Seg Neutrophils # Seg Neutrophils # Man Lymphocytes # (Manual) D-Dimer POC ABG pH 7.454 H 7.482 H POC ABG pCO2 POC ABG pO2 65 L VBG pH Sodium 154 H Potassium 3.3 L Chloride 115.1 H Carbon Dioxide BUN 19 H Creatinine Glucose 117 H POC Glucose Hemoglobin A1c Lactic Acid Calcium 7.8 L Phosphorus Magnesium Iron TIBC AST ALT Troponin T C-Reactive Protein Total Protein Albumin Triglycerides LDL Cholesterol Direct HDL Cholesterol Urine WBC (Auto) Vancomycin Trough Salicylates Acetaminophen % CD3 Cells % CD19 Cells Absolute CD19 Count Miscellaneous Test Crossmatch 08/19/18 08/19/18 08/20/18 14:32 16:18 03:51 WBC RBC Hgb Hct RDW Plt Count Lymph % (Auto) [place] % (Auto) Lymph # [place] # Seg Neutrophils % Seg Neuts % (Manual) Lymphocytes % (Manual) Nucleated RBC % Seg Neutrophils # Seg Neutrophils # Man Lymphocytes # (Manual) D-Dimer POC ABG pH 7.483 H POC ABG pCO2 33.4 L POC ABG pO2 51 L 74 L VBG pH Sodium Potassium Chloride Carbon Dioxide BUN Creatinine Glucose POC Glucose Hemoglobin A1c Lactic Acid Calcium Phosphorus Magnesium Iron TIBC AST ALT Troponin T C-Reactive Protein Total Protein Albumin Triglycerides LDL Cholesterol Direct HDL Cholesterol Urine WBC (Auto) Vancomycin Trough Salicylates Acetaminophen % CD3 Cells 44 L % CD19 Cells 41 H Absolute CD19 Count 1290 H Miscellaneous Test Crossmatch 08/20/18 08/21/18 08/21/18 05:25 03:54 05:45 WBC 24.1 H RBC 2.83 L Hgb 8.8 L Hct 26.7 L RDW 15.7 H Plt Count 127 L Lymph % (Auto) [place] % (Auto) Lymph # [place] # Seg Neutrophils % Seg Neuts % (Manual) 94.0 H Lymphocytes % (Manual) 4.0 L Nucleated RBC % 1.0 H Seg Neutrophils # Seg Neutrophils # Man 22.7 H Lymphocytes # (Manual) 1.0 L D-Dimer POC ABG pH POC ABG pCO2 31.9 L POC ABG pO2 66 L VBG pH Sodium 146 H D Potassium Chloride 111.2 H Carbon Dioxide BUN 24 H Creatinine Glucose 141 H POC Glucose Hemoglobin A1c Lactic Acid Calcium 8.1 L Phosphorus Magnesium Iron TIBC AST 65 H ALT 104 H Troponin T C-Reactive Protein Total Protein 6.2 L Albumin 2.6 L Triglycerides LDL Cholesterol Direct HDL Cholesterol Urine WBC (Auto) Vancomycin Trough Salicylates Acetaminophen % CD3 Cells % CD19 Cells Absolute CD19 Count Miscellaneous Test Crossmatch 08/21/18 08/22/18 08/22/18 05:45 06:20 06:45 WBC RBC Hgb Hct RDW Plt Count Lymph % (Auto) [place] % (Auto) Lymph # [place] # Seg Neutrophils % Seg Neuts % (Manual) Lymphocytes % (Manual) Nucleated RBC % Seg Neutrophils # Seg Neutrophils # Man Lymphocytes # (Manual) D-Dimer POC ABG pH POC ABG pCO2 32.9 L POC ABG pO2 VBG pH Sodium Potassium 3.5 L Chloride 109.4 H 112.4 H Carbon Dioxide 21 L 20 L BUN 50 H 61 H Creatinine 2.0 H D 1.9 H Glucose 144 H 154 H POC Glucose Hemoglobin A1c Lactic Acid Calcium 7.6 L 7.8 L Phosphorus Magnesium Iron TIBC AST ALT Troponin T C-Reactive Protein Total Protein 5.3 L Albumin 2.1 L Triglycerides LDL Cholesterol Direct HDL Cholesterol Urine WBC (Auto) Vancomycin Trough Salicylates Acetaminophen % CD3 Cells % CD19 Cells Absolute CD19 Count Miscellaneous Test Crossmatch 08/22/18 08/22/18 08/22/18 06:45 15:29 18:40 WBC RBC Hgb Hct RDW Plt Count Lymph % (Auto) [place] % (Auto) Lymph # [place] # Seg Neutrophils % Seg Neuts % (Manual) Lymphocytes % (Manual) Nucleated RBC % Seg Neutrophils # Seg Neutrophils # Man Lymphocytes # (Manual) D-Dimer POC ABG pH POC ABG pCO2 POC ABG pO2 VBG pH Sodium Potassium Chloride Carbon Dioxide BUN Creatinine Glucose POC Glucose 169 H Hemoglobin A1c Lactic Acid Calcium Phosphorus Magnesium Iron TIBC AST ALT Troponin T C-Reactive Protein 4.70 H Total Protein Albumin Triglycerides 197 H LDL Cholesterol Direct HDL Cholesterol Urine WBC (Auto) Vancomycin Trough Salicylates Acetaminophen % CD3 Cells % CD19 Cells Absolute CD19 Count Miscellaneous Test Crossmatch 08/23/18 08/23/18 08/23/18 03:59 21:19 Unknown WBC 12.1 H RBC 2.29 L Hgb 7.1 L Hct 21.7 L RDW 15.7 H Plt Count 106 L Lymph % (Auto) [place] % (Auto) Lymph # [place] # Seg Neutrophils % Seg Neuts % (Manual) 92.0 H Lymphocytes % (Manual) 4.0 L Nucleated RBC % Seg Neutrophils # Seg Neutrophils # Man 11.1 H Lymphocytes # (Manual) 0.5 L D-Dimer POC ABG pH 7.306 L POC ABG pCO2 31.3 L POC ABG pO2 119 H 75 L VBG pH Sodium Potassium Chloride Carbon Dioxide BUN Creatinine Glucose POC Glucose Hemoglobin A1c Lactic Acid Calcium Phosphorus Magnesium Iron TIBC AST ALT Troponin T C-Reactive Protein Total Protein Albumin Triglycerides LDL Cholesterol Direct HDL Cholesterol Urine WBC (Auto) Vancomycin Trough Salicylates Acetaminophen % CD3 Cells % CD19 Cells Absolute CD19 Count Miscellaneous Test Crossmatch 08/23/18 08/24/18 08/24/18 Unknown 04:18 08:30 WBC 12.8 H RBC 2.24 L Hgb 7.0 L Hct 21.1 L RDW Plt Count Lymph % (Auto) [place] % (Auto) Lymph # [place] # Seg Neutrophils % Seg Neuts % (Manual) 93.0 H Lymphocytes % (Manual) 6.0 L Nucleated RBC % Seg Neutrophils # Seg Neutrophils # Man 11.9 H Lymphocytes # (Manual) 0.8 L D-Dimer POC ABG pH POC ABG pCO2 POC ABG pO2 78 L VBG pH Sodium Potassium Chloride 115.7 H Carbon Dioxide 21 L BUN 64 H Creatinine 2.0 H Glucose 149 H POC Glucose Hemoglobin A1c Lactic Acid Calcium 7.5 L Phosphorus Magnesium Iron TIBC AST ALT Troponin T C-Reactive Protein Total Protein 4.8 L Albumin 2.0 L Triglycerides LDL Cholesterol Direct HDL Cholesterol Urine WBC (Auto) Vancomycin Trough Salicylates Acetaminophen % CD3 Cells % CD19 Cells Absolute CD19 Count Miscellaneous Test Crossmatch 08/24/18 08/24/18 08/24/18 08:30 17:44 18:28 WBC RBC Hgb Hct RDW Plt Count Lymph % (Auto) [place] % (Auto) Lymph # [place] # Seg Neutrophils % Seg Neuts % (Manual) Lymphocytes % (Manual) Nucleated RBC % Seg Neutrophils # Seg Neutrophils # Man Lymphocytes # (Manual) D-Dimer POC ABG pH 7.474 H POC ABG pCO2 POC ABG pO2 61 L VBG pH Sodium Potassium Chloride 108.3 H Carbon Dioxide 20 L BUN 65 H Creatinine 2.0 H Glucose 167 H POC Glucose 164 H Hemoglobin A1c Lactic Acid Calcium 7.7 L Phosphorus Magnesium Iron TIBC AST ALT Troponin T C-Reactive Protein Total Protein 5.3 L Albumin 2.2 L Triglycerides LDL Cholesterol Direct HDL Cholesterol Urine WBC (Auto) Vancomycin Trough Salicylates Acetaminophen % CD3 Cells % CD19 Cells Absolute CD19 Count Miscellaneous Test Crossmatch 08/25/18 08/25/18 08/25/18 03:35 05:20 05:20 WBC RBC Hgb 6.7 L Hct 21.0 L RDW Plt Count Lymph % (Auto) [place] % (Auto) Lymph # [place] # Seg Neutrophils % Seg Neuts % (Manual) Lymphocytes % (Manual) Nucleated RBC % Seg Neutrophils # Seg Neutrophils # Man Lymphocytes # (Manual) D-Dimer POC ABG pH POC ABG pCO2 POC ABG pO2 79 L VBG pH Sodium Potassium Chloride Carbon Dioxide 21 L BUN 71 H Creatinine 3.1 H D Glucose 171 H POC Glucose Hemoglobin A1c Lactic Acid Calcium 7.5 L Phosphorus Magnesium Iron TIBC AST ALT Troponin T C-Reactive Protein Total Protein Albumin Triglycerides LDL Cholesterol Direct HDL Cholesterol Urine WBC (Auto) Vancomycin Trough Salicylates Acetaminophen % CD3 Cells % CD19 Cells Absolute CD19 Count Miscellaneous Test Crossmatch 08/25/18 08/25/18 08/25/18 05:20 08:52 12:42 WBC RBC Hgb Hct RDW Plt Count Lymph % (Auto) [place] % (Auto) Lymph # [place] # Seg Neutrophils % Seg Neuts % (Manual) Lymphocytes % (Manual) Nucleated RBC % Seg Neutrophils # Seg Neutrophils # Man Lymphocytes # (Manual) D-Dimer POC ABG pH POC ABG pCO2 POC ABG pO2 VBG pH Sodium Potassium Chloride Carbon Dioxide BUN Creatinine Glucose POC Glucose 166 H Hemoglobin A1c Lactic Acid Calcium Phosphorus Magnesium Iron TIBC AST ALT Troponin T C-Reactive Protein 5.00 H Total Protein Albumin Triglycerides LDL Cholesterol Direct HDL Cholesterol Urine WBC (Auto) Vancomycin Trough Salicylates Acetaminophen % CD3 Cells % CD19 Cells Absolute CD19 Count Miscellaneous Test Crossmatch See Detail 08/25/18 08/26/18 08/26/18 18:05 00:13 04:53 WBC RBC Hgb Hct RDW Plt Count Lymph % (Auto) [place] % (Auto) Lymph # [place] # Seg Neutrophils % Seg Neuts % (Manual) Lymphocytes % (Manual) Nucleated RBC % Seg Neutrophils # Seg Neutrophils # Man Lymphocytes # (Manual) D-Dimer POC ABG pH POC ABG pCO2 30.9 L POC ABG pO2 70 L VBG pH Sodium Potassium Chloride Carbon Dioxide BUN Creatinine Glucose POC Glucose 121 H 164 H Hemoglobin A1c Lactic Acid Calcium Phosphorus Magnesium Iron TIBC AST ALT Troponin T C-Reactive Protein Total Protein Albumin Triglycerides LDL Cholesterol Direct HDL Cholesterol Urine WBC (Auto) Vancomycin Trough Salicylates Acetaminophen % CD3 Cells % CD19 Cells Absolute CD19 Count Miscellaneous Test Crossmatch 08/26/18 08/26/18 08/26/18 05:42 06:00 06:00 WBC RBC 2.62 L Hgb 7.7 L Hct 23.0 L RDW 22.0 H Plt Count Lymph % (Auto) 6.3 L [place] % (Auto) Lymph # 0.7 L [place] # Seg Neutrophils % 88.1 H Seg Neuts % (Manual) Lymphocytes % (Manual) Nucleated RBC % Seg Neutrophils # 9.6 H Seg Neutrophils # Man Lymphocytes # (Manual) D-Dimer POC ABG pH POC ABG pCO2 POC ABG pO2 VBG pH Sodium Potassium Chloride Carbon Dioxide 21 L BUN 70 H Creatinine 3.3 H Glucose 146 H POC Glucose 149 H Hemoglobin A1c Lactic Acid Calcium 8.0 L Phosphorus Magnesium Iron TIBC AST ALT Troponin T C-Reactive Protein Total Protein Albumin Triglycerides LDL Cholesterol Direct HDL Cholesterol Urine WBC (Auto) Vancomycin Trough Salicylates Acetaminophen % CD3 Cells % CD19 Cells Absolute CD19 Count Miscellaneous Test Crossmatch 08/26/18 08/26/18 08/27/18 11:37 23:54 04:35 WBC RBC 2.50 L Hgb 7.6 L Hct 22.3 L RDW 21.8 H Plt Count Lymph % (Auto) 7.3 L [place] % (Auto) Lymph # 0.7 L [place] # Seg Neutrophils % 85.6 H Seg Neuts % (Manual) Lymphocytes % (Manual) Nucleated RBC % Seg Neutrophils # 8.6 H Seg Neutrophils # Man Lymphocytes # (Manual) D-Dimer POC ABG pH POC ABG pCO2 POC ABG pO2 VBG pH Sodium Potassium Chloride Carbon Dioxide BUN Creatinine Glucose POC Glucose 183 H 150 H Hemoglobin A1c Lactic Acid Calcium Phosphorus Magnesium Iron TIBC AST ALT Troponin T C-Reactive Protein Total Protein Albumin Triglycerides LDL Cholesterol Direct HDL Cholesterol Urine WBC (Auto) Vancomycin Trough Salicylates Acetaminophen % CD3 Cells % CD19 Cells Absolute CD19 Count Miscellaneous Test Crossmatch 08/27/18 08/27/1808/28/19 04:35 12:17 04:43 WBC RBC Hgb Hct RDW Plt Count Lymph % (Auto) [place] % (Auto) Lymph # [place] # Seg Neutrophils % Seg Neuts % (Manual) Lymphocytes % (Manual) Nucleated RBC % Seg Neutrophils # Seg Neutrophils # Man Lymphocytes # (Manual) D-Dimer POC ABG pH POC ABG pCO2 32.1 L 33.8 L POC ABG pO2 68 L 78 L VBG pH Sodium Potassium Chloride Carbon Dioxide 19 L BUN 67 H Creatinine 2.9 H Glucose 155 H POC Glucose Hemoglobin A1c Lactic Acid Calcium Phosphorus 4.70 H Magnesium Iron TIBC AST ALT Troponin T C-Reactive Protein Total Protein Albumin Triglycerides LDL Cholesterol Direct HDL Cholesterol Urine WBC (Auto) Vancomycin Trough Salicylates Acetaminophen % CD3 Cells % CD19 Cells Absolute CD19 Count Miscellaneous Test Crossmatch 08/28/18 08/28/18 08/28/18 05:03 05:20 05:20 WBC RBC 2.43 L Hgb 7.4 L Hct 21.8 L RDW 20.8 H Plt Count Lymph % (Auto) 7.6 L [place] % (Auto) 8.7 H Lymph # 0.7 L [place] # Seg Neutrophils % 82.9 H Seg Neuts % (Manual) Lymphocytes % (Manual) Nucleated RBC % Seg Neutrophils # Seg Neutrophils # Man Lymphocytes # (Manual) D-Dimer POC ABG pH POC ABG pCO2 POC ABG pO2 VBG pH Sodium Potassium Chloride 107.8 H Carbon Dioxide 21 L BUN 55 H Creatinine 2.0 H Glucose 177 H POC Glucose 160 H Hemoglobin A1c Lactic Acid Calcium Phosphorus Magnesium Iron TIBC AST ALT Troponin T C-Reactive Protein Total Protein Albumin Triglycerides LDL Cholesterol Direct HDL Cholesterol Urine WBC (Auto) Vancomycin Trough Salicylates Acetaminophen % CD3 Cells % CD19 Cells Absolute CD19 Count Miscellaneous Test Crossmatch 08/28/18 08/28/18 08/28/18 12:18 18:58 22:31 WBC RBC Hgb Hct RDW Plt Count Lymph % (Auto) [place] % (Auto) Lymph # [place] # Seg Neutrophils % Seg Neuts % (Manual) Lymphocytes % (Manual) Nucleated RBC % Seg Neutrophils # Seg Neutrophils # Man Lymphocytes # (Manual) D-Dimer POC ABG pH POC ABG pCO2 34.4 L POC ABG pO2 67 L VBG pH Sodium Potassium Chloride Carbon Dioxide BUN Creatinine Glucose POC Glucose 164 H 149 H Hemoglobin A1c Lactic Acid Calcium Phosphorus Magnesium Iron TIBC AST ALT Troponin T C-Reactive Protein Total Protein Albumin Triglycerides LDL Cholesterol Direct HDL Cholesterol Urine WBC (Auto) Vancomycin Trough Salicylates Acetaminophen % CD3 Cells % CD19 Cells Absolute CD19 Count Miscellaneous Test Crossmatch 08/28/18 08/29/18 08/29/18 23:33 05:25 05:25 WBC RBC 2.30 L Hgb 7.0 L Hct 20.9 L RDW 21.0 H Plt Count Lymph % (Auto) 11.5 L [place] % (Auto) 9.2 H Lymph # 0.8 L [place] # Seg Neutrophils % 78.8 H Seg Neuts % (Manual) Lymphocytes % (Manual) Nucleated RBC % Seg Neutrophils # Seg Neutrophils # Man Lymphocytes # (Manual) D-Dimer POC ABG pH POC ABG pCO2 POC ABG pO2 VBG pH Sodium Potassium Chloride 111.1 H Carbon Dioxide BUN 55 H Creatinine 1.8 H Glucose 162 H POC Glucose 143 H Hemoglobin A1c Lactic Acid Calcium Phosphorus Magnesium Iron TIBC AST 46 H ALT < 5 L Troponin T C-Reactive Protein Total Protein 5.7 L Albumin 2.1 L Triglycerides LDL Cholesterol Direct HDL Cholesterol Urine WBC (Auto) Vancomycin Trough Salicylates Acetaminophen % CD3 Cells % CD19 Cells Absolute CD19 Count Miscellaneous Test Crossmatch 08/29/18 08/29/18 08/30/18 18:19 23:35 05:03 WBC RBC Hgb Hct RDW Plt Count Lymph % (Auto) [place] % (Auto) Lymph # [place] # Seg Neutrophils % Seg Neuts % (Manual) Lymphocytes % (Manual) Nucleated RBC % Seg Neutrophils # Seg Neutrophils # Man Lymphocytes # (Manual) D-Dimer POC ABG pH POC ABG pCO2 POC ABG pO2 VBG pH Sodium Potassium Chloride Carbon Dioxide BUN Creatinine Glucose POC Glucose 155 H 139 H 122 H Hemoglobin A1c Lactic Acid Calcium Phosphorus Magnesium Iron TIBC AST ALT Troponin T C-Reactive Protein Total Protein Albumin Triglycerides LDL Cholesterol Direct HDL Cholesterol Urine WBC (Auto) Vancomycin Trough Salicylates Acetaminophen % CD3 Cells % CD19 Cells Absolute CD19 Count Miscellaneous Test Crossmatch 08/30/18 08/30/18 08/30/18 09:33 09:33 09:54 WBC RBC 2.58 L Hgb 7.9 L Hct 23.5 L RDW 20.9 H Plt Count Lymph % (Auto) 8.0 L [place] % (Auto) 9.7 H Lymph # 0.8 L [place] # 1.0 H Seg Neutrophils % 82.1 H Seg Neuts % (Manual) Lymphocytes % (Manual) Nucleated RBC % Seg Neutrophils # 8.2 H Seg Neutrophils # Man Lymphocytes # (Manual) D-Dimer POC ABG pH POC ABG pCO2 POC ABG pO2 VBG pH Sodium 146 H Potassium Chloride 110.7 H Carbon Dioxide BUN 56 H Creatinine 1.9 H Glucose 145 H POC Glucose Hemoglobin A1c Lactic Acid Calcium Phosphorus 4.60 H Magnesium Iron TIBC AST ALT < 5 L Troponin T C-Reactive Protein Total Protein Albumin 2.7 L Triglycerides LDL Cholesterol Direct HDL Cholesterol Urine WBC (Auto) Vancomycin Trough Salicylates Acetaminophen % CD3 Cells % CD19 Cells Absolute CD19 Count Miscellaneous Test Flexitest 1 H Crossmatch 08/30/18 08/30/18 08/30/18 09:57 11:26 18:08 WBC RBC Hgb Hct RDW Plt Count Lymph % (Auto) [place] % (Auto) Lymph # [place] # Seg Neutrophils % Seg Neuts % (Manual) Lymphocytes % (Manual) Nucleated RBC % Seg Neutrophils # Seg Neutrophils # Man Lymphocytes # (Manual) D-Dimer POC ABG pH POC ABG pCO2 POC ABG pO2 VBG pH Sodium Potassium Chloride Carbon Dioxide BUN Creatinine Glucose POC Glucose 149 H 156 H Hemoglobin A1c Lactic Acid Calcium Phosphorus Magnesium Iron TIBC AST ALT Troponin T C-Reactive Protein Total Protein Albumin Triglycerides LDL Cholesterol Direct HDL Cholesterol Urine WBC (Auto) Vancomycin Trough Salicylates Acetaminophen % CD3 Cells % CD19 Cells Absolute CD19 Count Miscellaneous Test Flexitest 1 H Crossmatch 08/30/18 08/31/18 08/31/18 23:14 05:16 08:40 WBC RBC Hgb Hct RDW Plt Count Lymph % (Auto) [place] % (Auto) Lymph # [place] # Seg Neutrophils % Seg Neuts % (Manual) Lymphocytes % (Manual) Nucleated RBC % Seg Neutrophils # Seg Neutrophils # Man Lymphocytes # (Manual) D-Dimer POC ABG pH POC ABG pCO2 POC ABG pO2 VBG pH Sodium 151 H Potassium Chloride 113.8 H Carbon Dioxide BUN 45 H Creatinine Glucose 144 H POC Glucose 117 H 133 H Hemoglobin A1c Lactic Acid Calcium Phosphorus Magnesium Iron TIBC AST ALT Troponin T C-Reactive Protein Total Protein Albumin Triglycerides LDL Cholesterol Direct HDL Cholesterol Urine WBC (Auto) Vancomycin Trough Salicylates Acetaminophen % CD3 Cells % CD19 Cells Absolute CD19 Count Miscellaneous Test Crossmatch 08/31/18 09/01/18 09/01/18 23:46 04:45 04:45 WBC RBC 2.38 L Hgb 7.3 L Hct 22.1 L RDW 21.1 H Plt Count Lymph % (Auto) [place] % (Auto) Lymph # [place] # Seg Neutrophils % Seg Neuts % (Manual) 93.0 H Lymphocytes % (Manual) 4.0 L Nucleated RBC % Seg Neutrophils # Seg Neutrophils # Man 10.1 H Lymphocytes # (Manual) 0.4 L D-Dimer POC ABG pH POC ABG pCO2 POC ABG pO2 VBG pH Sodium 156 H Potassium 3.1 L Chloride 115.2 H Carbon Dioxide BUN 34 H Creatinine Glucose 125 H POC Glucose 124 H Hemoglobin A1c Lactic Acid Calcium Phosphorus Magnesium Iron TIBC AST ALT Troponin T C-Reactive Protein Total Protein Albumin Triglycerides LDL Cholesterol Direct HDL Cholesterol Urine WBC (Auto) Vancomycin Trough Salicylates Acetaminophen % CD3 Cells % CD19 Cells Absolute CD19 Count Miscellaneous Test Crossmatch 09/01/18 09/01/18 09/01/18 05:34 11:20 17:52 WBC RBC Hgb Hct RDW Plt Count Lymph % (Auto) [place] % (Auto) Lymph # [place] # Seg Neutrophils % Seg Neuts % (Manual) Lymphocytes % (Manual) Nucleated RBC % Seg Neutrophils # Seg Neutrophils # Man Lymphocytes # (Manual) D-Dimer POC ABG pH 7.553 H POC ABG pCO2 POC ABG pO2 74 L VBG pH Sodium Potassium Chloride Carbon Dioxide BUN Creatinine Glucose POC Glucose 128 H 146 H Hemoglobin A1c Lactic Acid Calcium Phosphorus Magnesium Iron TIBC AST ALT Troponin T C-Reactive Protein Total Protein Albumin Triglycerides LDL Cholesterol Direct HDL Cholesterol Urine WBC (Auto) Vancomycin Trough Salicylates Acetaminophen % CD3 Cells % CD19 Cells Absolute CD19 Count Miscellaneous Test Crossmatch 09/01/18 09/02/18 09/02/18 17:52 04:13 04:58 WBC 16.4 H RBC 2.64 L Hgb 7.9 L Hct 24.3 L RDW 20.8 H Plt Count Lymph % (Auto) [place] % (Auto) Lymph # [place] # Seg Neutrophils % Seg Neuts % (Manual) 96.0 H Lymphocytes % (Manual) 1.0 L Nucleated RBC % Seg Neutrophils # Seg Neutrophils # Man 15.7 H Lymphocytes # (Manual) 0.2 L D-Dimer POC ABG pH 7.488 H POC ABG pCO2 POC ABG pO2 63 L VBG pH Sodium Potassium Chloride Carbon Dioxide BUN Creatinine Glucose POC Glucose 143 H Hemoglobin A1c Lactic Acid Calcium Phosphorus Magnesium Iron TIBC AST ALT Troponin T C-Reactive Protein Total Protein Albumin Triglycerides LDL Cholesterol Direct HDL Cholesterol Urine WBC (Auto) Vancomycin Trough Salicylates Acetaminophen % CD3 Cells % CD19 Cells Absolute CD19 Count Miscellaneous Test Crossmatch 09/02/18 09/02/18 09/02/18 04:58 11:03 18:18 WBC RBC Hgb Hct RDW Plt Count Lymph % (Auto) [place] % (Auto) Lymph # [place] # Seg Neutrophils % Seg Neuts % (Manual) Lymphocytes % (Manual) Nucleated RBC % Seg Neutrophils # Seg Neutrophils # Man Lymphocytes # (Manual) D-Dimer POC ABG pH 7.344 L POC ABG pCO2 52.8 H POC ABG pO2 VBG pH Sodium 158 H Potassium 2.9 L* Chloride 115.7 H Carbon Dioxide BUN 27 H Creatinine 0.6 L Glucose 128 H POC Glucose 121 H Hemoglobin A1c Lactic Acid Calcium Phosphorus Magnesium 1.60 L Iron TIBC AST 64 H ALT Troponin T C-Reactive Protein Total Protein Albumin 2.6 L Triglycerides LDL Cholesterol Direct HDL Cholesterol Urine WBC (Auto) Vancomycin Trough Salicylates Acetaminophen % CD3 Cells % CD19 Cells Absolute CD19 Count Miscellaneous Test Crossmatch 09/02/18 09/03/18 09/03/18 23:06 03:36 04:25 WBC RBC 2.20 L Hgb 6.7 L Hct 20.9 L RDW 21.1 H Plt Count Lymph % (Auto) [place] % (Auto) Lymph # [place] # Seg Neutrophils % Seg Neuts % (Manual) 90.0 H Lymphocytes % (Manual) 5.0 L Nucleated RBC % Seg Neutrophils # Seg Neutrophils # Man 8.7 H Lymphocytes # (Manual) 0.5 L D-Dimer POC ABG pH POC ABG pCO2 POC ABG pO2 54 L VBG pH Sodium Potassium Chloride Carbon Dioxide BUN Creatinine Glucose POC Glucose 121 H Hemoglobin A1c Lactic Acid Calcium Phosphorus Magnesium Iron TIBC AST ALT Troponin T C-Reactive Protein Total Protein Albumin Triglycerides LDL Cholesterol Direct HDL Cholesterol Urine WBC (Auto) Vancomycin Trough Salicylates Acetaminophen % CD3 Cells % CD19 Cells Absolute CD19 Count Miscellaneous Test Crossmatch 09/03/18 09/03/18 09/03/18 04:25 05:45 10:24 WBC RBC Hgb Hct RDW Plt Count Lymph % (Auto) [place] % (Auto) Lymph # [place] # Seg Neutrophils % Seg Neuts % (Manual) Lymphocytes % (Manual) Nucleated RBC % Seg Neutrophils # Seg Neutrophils # Man Lymphocytes # (Manual) D-Dimer POC ABG pH POC ABG pCO2 POC ABG pO2 VBG pH Sodium 158 H Potassium 3.1 L Chloride 120.4 H Carbon Dioxide BUN 25 H Creatinine 0.6 L Glucose 127 H POC Glucose 178 H Hemoglobin A1c Lactic Acid Calcium 7.9 L Phosphorus Magnesium Iron TIBC AST ALT Troponin T C-Reactive Protein Total Protein 6.0 L Albumin 2.4 L Triglycerides LDL Cholesterol Direct HDL Cholesterol Urine WBC (Auto) Vancomycin Trough Salicylates Acetaminophen % CD3 Cells % CD19 Cells Absolute CD19 Count Miscellaneous Test Crossmatch See Detail 09/03/18 09/03/18 09/04/18 11:27 23:09 04:42 WBC RBC Hgb Hct RDW Plt Count Lymph % (Auto) [place] % (Auto) Lymph # [place] # Seg Neutrophils % Seg Neuts % (Manual) Lymphocytes % (Manual) Nucleated RBC % Seg Neutrophils # Seg Neutrophils # Man Lymphocytes # (Manual) D-Dimer POC ABG pH 7.293 L POC ABG pCO2 50.2 H POC ABG pO2 VBG pH Sodium Potassium Chloride Carbon Dioxide BUN Creatinine Glucose POC Glucose 107 H 139 H Hemoglobin A1c Lactic Acid Calcium Phosphorus Magnesium Iron TIBC AST ALT Troponin T C-Reactive Protein Total Protein Albumin Triglycerides LDL Cholesterol Direct HDL Cholesterol Urine WBC (Auto) Vancomycin Trough Salicylates Acetaminophen % CD3 Cells % CD19 Cells Absolute CD19 Count Miscellaneous Test Crossmatch 09/04/18 09/04/18 09/04/18 05:00 06:30 06:30 WBC RBC 2.32 L Hgb 7.0 L Hct 21.9 L RDW 20.2 H Plt Count Lymph % (Auto) [place] % (Auto) Lymph # [place] # Seg Neutrophils % 80.1 H Seg Neuts % (Manual) Lymphocytes % (Manual) Nucleated RBC % Seg Neutrophils # 8.2 H Seg Neutrophils # Man Lymphocytes # (Manual) D-Dimer POC ABG pH POC ABG pCO2 POC ABG pO2 VBG pH Sodium 150 H D Potassium Chloride 115.9 H Carbon Dioxide BUN 21 H Creatinine 0.6 L Glucose 125 H POC Glucose 154 H Hemoglobin A1c Lactic Acid Calcium 7.9 L Phosphorus Magnesium 1.50 L Iron TIBC AST ALT Troponin T C-Reactive Protein Total Protein Albumin Triglycerides LDL Cholesterol Direct HDL Cholesterol Urine WBC (Auto) Vancomycin Trough Salicylates Acetaminophen % CD3 Cells % CD19 Cells Absolute CD19 Count Miscellaneous Test Crossmatch 09/04/18 09/04/18 09/04/18 11:20 11:51 18:27 WBC RBC Hgb Hct RDW Plt Count Lymph % (Auto) [place] % (Auto) Lymph # [place] # Seg Neutrophils % Seg Neuts % (Manual) Lymphocytes % (Manual) Nucleated RBC % Seg Neutrophils # Seg Neutrophils # Man Lymphocytes # (Manual) D-Dimer POC ABG pH 7.244 L POC ABG pCO2 54.2 H POC ABG pO2 62 L VBG pH Sodium Potassium Chloride Carbon Dioxide BUN Creatinine Glucose POC Glucose 156 H 129 H Hemoglobin A1c Lactic Acid Calcium Phosphorus Magnesium Iron TIBC AST ALT Troponin T C-Reactive Protein Total Protein Albumin Triglycerides LDL Cholesterol Direct HDL Cholesterol Urine WBC (Auto) Vancomycin Trough Salicylates Acetaminophen % CD3 Cells % CD19 Cells Absolute CD19 Count Miscellaneous Test Crossmatch 09/05/18 09/05/18 09/05/18 03:46 04:00 04:00 WBC RBC 2.13 L Hgb 6.4 L Hct 20.1 L RDW 19.9 H Plt Count 117 L Lymph % (Auto) [place] % (Auto) Lymph # 0.9 L [place] # Seg Neutrophils % 81.7 H Seg Neuts % (Manual) Lymphocytes % (Manual) Nucleated RBC % Seg Neutrophils # Seg Neutrophils # Man Lymphocytes # (Manual) D-Dimer POC ABG pH 7.282 L POC ABG pCO2 57.3 H POC ABG pO2 124 H VBG pH Sodium Potassium Chloride 111.0 H Carbon Dioxide BUN 20 H Creatinine Glucose 130 H POC Glucose Hemoglobin A1c Lactic Acid Calcium 7.8 L Phosphorus Magnesium 1.60 L Iron TIBC AST ALT Troponin T C-Reactive Protein Total Protein Albumin Triglycerides LDL Cholesterol Direct HDL Cholesterol Urine WBC (Auto) Vancomycin Trough Salicylates Acetaminophen % CD3 Cells % CD19 Cells Absolute CD19 Count Miscellaneous Test Crossmatch 09/05/18 09/05/18 09/05/18 12:15 17:24 23:24 WBC RBC Hgb Hct RDW Plt Count Lymph % (Auto) [place] % (Auto) Lymph # [place] # Seg Neutrophils % Seg Neuts % (Manual) Lymphocytes % (Manual) Nucleated RBC % Seg Neutrophils # Seg Neutrophils # Man Lymphocytes # (Manual) D-Dimer POC ABG pH POC ABG pCO2 POC ABG pO2 VBG pH Sodium Potassium Chloride Carbon Dioxide BUN Creatinine Glucose POC Glucose 143 H 116 H 116 H Hemoglobin A1c Lactic Acid Calcium Phosphorus Magnesium Iron TIBC AST ALT Troponin T C-Reactive Protein Total Protein Albumin Triglycerides LDL Cholesterol Direct HDL Cholesterol Urine WBC (Auto) Vancomycin Trough Salicylates Acetaminophen % CD3 Cells % CD19 Cells Absolute CD19 Count Miscellaneous Test Crossmatch 09/06/18 09/06/18 09/06/18 03:33 04:20 04:20 WBC RBC 2.45 L Hgb 7.4 L Hct 23.0 L RDW 18.1 H Plt Count 99 L Lymph % (Auto) [place] % (Auto) Lymph # 1.0 L [place] # Seg Neutrophils % 78.0 H Seg Neuts % (Manual) Lymphocytes % (Manual) Nucleated RBC % Seg Neutrophils # Seg Neutrophils # Man Lymphocytes # (Manual) D-Dimer POC ABG pH 7.303 L POC ABG pCO2 49.2 H POC ABG pO2 73 L VBG pH Sodium Potassium Chloride 109.3 H Carbon Dioxide BUN 24 H Creatinine Glucose 108 H POC Glucose Hemoglobin A1c Lactic Acid Calcium 8.1 L Phosphorus Magnesium Iron TIBC AST ALT Troponin T C-Reactive Protein Total Protein Albumin Triglycerides LDL Cholesterol Direct HDL Cholesterol Urine WBC (Auto) Vancomycin Trough Salicylates Acetaminophen % CD3 Cells % CD19 Cells Absolute CD19 Count Miscellaneous Test Crossmatch 09/06/18 09/06/18 09/06/18 04:55 11:29 14:40 WBC RBC Hgb Hct RDW Plt Count Lymph % (Auto) [place] % (Auto) Lymph # [place] # Seg Neutrophils % Seg Neuts % (Manual) Lymphocytes % (Manual) Nucleated RBC % Seg Neutrophils # Seg Neutrophils # Man Lymphocytes # (Manual) D-Dimer POC ABG pH POC ABG pCO2 POC ABG pO2 VBG pH Sodium Potassium Chloride Carbon Dioxide BUN Creatinine Glucose POC Glucose 124 H 149 H Hemoglobin A1c Lactic Acid Calcium Phosphorus Magnesium Iron TIBC AST ALT Troponin T C-Reactive Protein Total Protein Albumin Triglycerides LDL Cholesterol Direct HDL Cholesterol Urine WBC (Auto) Vancomycin Trough 28.6 H Salicylates Acetaminophen % CD3 Cells % CD19 Cells Absolute CD19 Count Miscellaneous Test Crossmatch 09/06/18 09/06/18 09/07/18 17:43 20:08 00:39 WBC RBC Hgb Hct RDW Plt Count Lymph % (Auto) [place] % (Auto) Lymph # [place] # Seg Neutrophils % Seg Neuts % (Manual) Lymphocytes % (Manual) Nucleated RBC % Seg Neutrophils # Seg Neutrophils # Man Lymphocytes # (Manual) D-Dimer POC ABG pH POC ABG pCO2 POC ABG pO2 VBG pH Sodium Potassium Chloride Carbon Dioxide BUN Creatinine Glucose POC Glucose 138 H 118 H 131 H Hemoglobin A1c Lactic Acid Calcium Phosphorus Magnesium Iron TIBC AST ALT Troponin T C-Reactive Protein Total Protein Albumin Triglycerides LDL Cholesterol Direct HDL Cholesterol Urine WBC (Auto) Vancomycin Trough Salicylates Acetaminophen % CD3 Cells % CD19 Cells Absolute CD19 Count Miscellaneous Test Crossmatch 09/07/18 09/07/18 09/07/18 05:40 05:40 12:03 WBC RBC 2.40 L Hgb 7.3 L Hct 22.5 L RDW 17.8 H Plt Count 92 L Lymph % (Auto) [place] % (Auto) Lymph # [place] # Seg Neutrophils % Seg Neuts % (Manual) 80.0 H Lymphocytes % (Manual) Nucleated RBC % 1.0 H Seg Neutrophils # Seg Neutrophils # Man Lymphocytes # (Manual) 0.8 L D-Dimer POC ABG pH POC ABG pCO2 POC ABG pO2 VBG pH Sodium Potassium Chloride 109.8 H Carbon Dioxide BUN 26 H Creatinine Glucose 118 H POC Glucose 145 H Hemoglobin A1c Lactic Acid Calcium 8.0 L Phosphorus Magnesium Iron 26 L TIBC 150 L AST 88 H ALT Troponin T C-Reactive Protein Total Protein 5.8 L Albumin 2.1 L Triglycerides LDL Cholesterol Direct HDL Cholesterol Urine WBC (Auto) Vancomycin Trough Salicylates Acetaminophen % CD3 Cells % CD19 Cells Absolute CD19 Count Miscellaneous Test Crossmatch 09/07/18 09/07/18 09/08/18 17:39 23:21 05:48 WBC RBC Hgb Hct RDW Plt Count Lymph % (Auto) [place] % (Auto) Lymph # [place] # Seg Neutrophils % Seg Neuts % (Manual) Lymphocytes % (Manual) Nucleated RBC % Seg Neutrophils # Seg Neutrophils # Man Lymphocytes # (Manual) D-Dimer POC ABG pH POC ABG pCO2 POC ABG pO2 VBG pH Sodium Potassium Chloride Carbon Dioxide BUN Creatinine Glucose POC Glucose 128 H 136 H 129 H Hemoglobin A1c Lactic Acid Calcium Phosphorus Magnesium Iron TIBC AST ALT Troponin T C-Reactive Protein Total Protein Albumin Triglycerides LDL Cholesterol Direct HDL Cholesterol Urine WBC (Auto) Vancomycin Trough Salicylates Acetaminophen % CD3 Cells % CD19 Cells Absolute CD19 Count Miscellaneous Test Crossmatch 09/08/18 09/08/18 09/08/18 06:17 10:06 10:42 WBC RBC Hgb Hct RDW Plt Count Lymph % (Auto) [place] % (Auto) Lymph # [place] # Seg Neutrophils % Seg Neuts % (Manual) Lymphocytes % (Manual) Nucleated RBC % Seg Neutrophils # Seg Neutrophils # Man Lymphocytes # (Manual) D-Dimer POC ABG pH 7.292 L 7.276 L POC ABG pCO2 56.9 H 65.1 H POC ABG pO2 VBG pH Sodium 146 H Potassium Chloride 109.1 H Carbon Dioxide BUN 28 H Creatinine Glucose 165 H POC Glucose Hemoglobin A1c Lactic Acid Calcium Phosphorus Magnesium Iron TIBC AST ALT Troponin T C-Reactive Protein Total Protein Albumin Triglycerides LDL Cholesterol Direct HDL Cholesterol Urine WBC (Auto) Vancomycin Trough Salicylates Acetaminophen % CD3 Cells % CD19 Cells Absolute CD19 Count Miscellaneous Test Crossmatch 09/08/18 09/08/18 09/08/18 11:06 18:07 23:20 WBC RBC Hgb Hct RDW Plt Count Lymph % (Auto) [place] % (Auto) Lymph # [place] # Seg Neutrophils % Seg Neuts % (Manual) Lymphocytes % (Manual) Nucleated RBC % Seg Neutrophils # Seg Neutrophils # Man Lymphocytes # (Manual) D-Dimer POC ABG pH POC ABG pCO2 POC ABG pO2 VBG pH Sodium Potassium Chloride Carbon Dioxide BUN Creatinine Glucose POC Glucose 165 H 140 H 124 H Hemoglobin A1c Lactic Acid Calcium Phosphorus Magnesium Iron TIBC AST ALT Troponin T C-Reactive Protein Total Protein Albumin Triglycerides LDL Cholesterol Direct HDL Cholesterol Urine WBC (Auto) Vancomycin Trough Salicylates Acetaminophen % CD3 Cells % CD19 Cells Absolute CD19 Count Miscellaneous Test Crossmatch 09/09/18 09/09/18 09/09/18 05:04 08:39 08:39 WBC RBC 2.60 L Hgb 8.1 L Hct 24.6 L RDW 17.9 H Plt Count Lymph % (Auto) [place] % (Auto) Lymph # [place] # Seg Neutrophils % Seg Neuts % (Manual) Lymphocytes % (Manual) Nucleated RBC % Seg Neutrophils # Seg Neutrophils # Man Lymphocytes # (Manual) D-Dimer POC ABG pH POC ABG pCO2 POC ABG pO2 VBG pH Sodium Potassium Chloride Carbon Dioxide BUN 32 H Creatinine Glucose 150 H POC Glucose 168 H Hemoglobin A1c Lactic Acid Calcium Phosphorus Magnesium Iron TIBC AST ALT Troponin T C-Reactive Protein Total Protein Albumin Triglycerides LDL Cholesterol Direct HDL Cholesterol Urine WBC (Auto) Vancomycin Trough Salicylates Acetaminophen % CD3 Cells % CD19 Cells Absolute CD19 Count Miscellaneous Test Crossmatch 09/09/18 12:41 WBC RBC Hgb Hct RDW Plt Count Lymph % (Auto) [place] % (Auto) Lymph # [place] # Seg Neutrophils % Seg Neuts % (Manual) Lymphocytes % (Manual) Nucleated RBC % Seg Neutrophils # Seg Neutrophils # Man Lymphocytes # (Manual) D-Dimer POC ABG pH POC ABG pCO2 POC ABG pO2 VBG pH Sodium Potassium Chloride Carbon Dioxide BUN Creatinine Glucose POC Glucose 150 H Hemoglobin A1c Lactic Acid Calcium Phosphorus Magnesium Iron TIBC AST ALT Troponin T C-Reactive Protein Total Protein Albumin Triglycerides LDL Cholesterol Direct HDL Cholesterol Urine WBC (Auto) Vancomycin Trough Salicylates Acetaminophen % CD3 Cells % CD19 Cells Absolute CD19 Count Miscellaneous Test Crossmatch Allied health notes reviewed: RT
[2018-09-09] MEDS: SOLU-Medrol IV SCH ×2 (13:53→23:06)
--- NOTE | 2018-09-09 15:55 | Progress Note ---
Assessment and Plan Assessment and plan: --Acute hypoxic hypercapnic respiratory failure; extubated 08/29/18 Re Intubated 09/02/18 secondary to acute respiratory failure, vent dependent Patient may need trach and PEG, continue current management --Status post bronchoscopy, BAL negative nebulizers, pulmonary critical following --Thrombocytopenia: Platelet count is Stable Tolerating Lovenox, closely monitor, hematology following --Anemia; received total 3 units of PRBC hemoglobin 7.3-8.1 Stool for occult blood x 2 negative --Febrile illness; resolved Patient finished antibiotics and antifungals as recommended by ID Monitor off antibiotics --Hypomagnesemia; Hypernatremia; resolved, --Gonzalez lower extremity DVT; anticoagulation with Lovenox CTA chest negative for PE --Sepsis; aspiration pneumonia ;s/p micafungin, meropenem and Vanco per ID Monitor off antibiotics --Hypertension; continue current antihypertensives --Severe malnutrition/hypoalbuminemia; Dietitian following --Acute kidney injury; probably secondary to ATN, Resolved, --Acute systolic congestive heart failure; EF 25-30%, Cardio following --Elevated Transaminases; resolved --DVT prophylaxis; on full dose Lovenox Consults and recommendations noted and appreciated Plan of care reviewed with the patient's nurse The high probability of a clinically significant, sudden or life threatening deterioration of the [respiratory, cardiology, ID, renal and metabolic] system(s) required my full and direct attention, intervention and personal management. The aggregate critical care time was [31] minutes. This time is in addition to time spent performing reported procedures but includes the following: [x] Data Review and interpretation [x] Patient assessment and monitoring of vital signs [x] Documentation [x] Medication orders and management Plan of care is reviewed with the patient's son at the bedside as well as patient's nurse History Interval history: Patient seen and examined medical records reviewed No new events reported by the nursing staff Patient remains intubated on ventilator support Mild distress Vital signs reviewed Hospitalist Physical - Constitutional Vitals: Temp Pulse Resp BP Pulse Ox 101.1 F H 102 H 24 175/75 94 09/09/18 12:00 09/09/18 15:46 09/09/18 15:01 09/09/18 15:46 09/09/18 15:46 General appearance: Present: mild distress, well-nourished, obese, other (on vent) - EENT Eyes: Present: PERRL, EOM intact - Neck Neck: Present: supple, normal ROM - Respiratory Respiratory effort: normal Respiratory: bilateral: diminished, rales, negative: rhonchi, wheezing - Cardiovascular Rhythm: regular Heart Sounds: Present: S1 & S2 - Extremities Extremities: no ischemia Extremity abnormal: edema - Abdominal General gastrointestinal: soft, non-tender, non-distended, normal bowel sounds - Integumentary Integumentary: Present: clear, warm - Psychiatric Psychiatric: other (patient is on ventilator) - Neurologic Neurologic: moves all extremities Results - Labs CBC & Chem 7: 09/09/18 08:39 09/09/18 08:39 Labs: Laboratory Last Values WBC 10.1 K/mm3 (4.5-11.0) 09/09/18 08:39 RBC 2.60 M/mm3 (3.65-5.03) L 09/09/18 08:39 Hgb 8.1 gm/dl (10.1-14.3) L 09/09/18 08:39 Hct 24.6 % (30.3-42.9) L 09/09/18 08:39 MCV 95 fl (79-97) 09/09/18 08:39 MCH 31 pg (28-32) 09/09/18 08:39 MCHC 33 % (30-34) 09/09/18 08:39 RDW 17.9 % (13.2-15.2) H 09/09/18 08:39 Plt Count 163 K/mm3 (140-440) 09/09/18 08:39 Lymph % (Auto) 16.1 % (13.4-35.0) 09/06/18 04:20 [place] % (Auto) 5.8 % (0.0-7.3) 09/06/18 04:20 Eos % (Auto) 0.0 % (0.0-4.3) 09/06/18 04:20 Baso % (Auto) 0.1 % (0.0-1.8) 09/06/18 04:20 Lymph # 1.0 K/mm3 (1.2-5.4) L 09/06/18 04:20 [place] # 0.4 K/mm3 (0.0-0.8) 09/06/18 04:20 Eos # 0.0 K/mm3 (0.0-0.4) 09/06/18 04:20 Baso # 0.0 K/mm3 (0.0-0.1) 09/06/18 04:20 Add Manual Diff Complete 09/07/18 05:40 Total Counted 100 09/07/18 05:40 Seg Neutrophils % 78.0 % (40.0-70.0) H 09/06/18 04:20 Seg Neuts % (Manual) 80.0 % (40.0-70.0) H 09/07/18 05:40 Band Neutrophils % 0 % 09/07/18 05:40 Lymphocytes % (Manual) 15.0 % (13.4-35.0) 09/07/18 05:40 Reactive Lymphs % (Man) 0 % 09/07/18 05:40 Monocytes % (Manual) 2.0 % (0.0-7.3) 09/07/18 05:40 Eosinophils % (Manual) 0 % (0.0-4.3) 09/07/18 05:40 Basophils % (Manual) 0 % (0.0-1.8) 09/07/18 05:40 Metamyelocytes % 2.0 % 09/07/18 05:40 Myelocytes % 1.0 % 09/07/18 05:40 Promyelocytes % 0 % 09/07/18 05:40 Blast Cells % 0 % 09/07/18 05:40 Nucleated RBC % 1.0 % (0.0-0.9) H 09/07/18 05:40 Seg Neutrophils # 4.8 K/mm3 (1.8-7.7) 09/06/18 04:20 Seg Neutrophils # Man 4.3 K/mm3 (1.8-7.7) 09/07/18 05:40 Band Neutrophils # 0.0 K/mm3 09/07/18 05:40 Abs Lymphs (Manual) 3262 cells/uL (850-3900) 08/19/18 14:32 Lymphocytes # (Manual) 0.8 K/mm3 (1.2-5.4) L 09/07/18 05:40 Abs React Lymphs (Man) 0.0 K/mm3 09/07/18 05:40 Monocytes # (Manual) 0.1 K/mm3 (0.0-0.8) 09/07/18 05:40 Eosinophils # (Manual) 0.0 K/mm3 (0.0-0.4) 09/07/18 05:40 Basophils # (Manual) 0.0 K/mm3 (0.0-0.1) 09/07/18 05:40 Metamyelocytes # 0.1 K/mm3 09/07/18 05:40 Myelocytes # 0.1 K/mm3 09/07/18 05:40 Promyelocytes # 0.0 K/mm3 09/07/18 05:40 Blast Cells # 0.0 K/mm3 09/07/18 05:40 WBC Morphology Not Reportable 09/07/18 05:40 Hypersegmented Neuts Not Reportable 09/07/18 05:40 Hyposegmented Neuts Not Reportable 09/07/18 05:40 Hypogranular Neuts Not Reportable 09/07/18 05:40 Smudge Cells Not Reportable 09/07/18 05:40 Toxic Granulation Not Reportable 09/07/18 05:40 Toxic Vacuolation Not Reportable 09/07/18 05:40 Dohle Bodies Not Reportable 09/07/18 05:40 Pelger-Huet Anomaly Not Reportable 09/07/18 05:40 Rosy Rods Not Reportable 09/07/18 05:40 Platelet Estimate Consistent w auto 09/07/18 05:40 Clumped Platelets Not Reportable 09/07/18 05:40 Plt Clumps, EDTA Not Reportable 09/07/18 05:40 Large Platelets Rare 09/07/18 05:40 Giant Platelets Not Reportable 09/07/18 05:40 Platelet Satelliting Not Reportable 09/07/18 05:40 Plt Morphology Comment Not Reportable 09/07/18 05:40 RBC Morphology Not Reportable 09/07/18 05:40 Dimorphic RBCs Not Reportable 09/07/18 05:40 Polychromasia Not Reportable 09/07/18 05:40 Hypochromasia Rare 09/07/18 05:40 Poikilocytosis Not Reportable 09/07/18 05:40 Anisocytosis Few 09/07/18 05:40 Microcytosis Not Reportable 09/07/18 05:40 Macrocytosis Not Reportable 09/07/18 05:40 Spherocytes Not Reportable 09/07/18 05:40 Pappenheimer Bodies Not Reportable 09/07/18 05:40 Sickle Cells Not Reportable 09/07/18 05:40 Target Cells Not Reportable 09/07/18 05:40 Tear Drop Cells Not Reportable 09/07/18 05:40 Ovalocytes Not Reportable 09/07/18 05:40 Helmet Cells Not Reportable 09/07/18 05:40 Hernandez-Calcium Bodies Not Reportable 09/07/18 05:40 Worthing Rings Not Reportable 09/07/18 05:40 Stanhope Cells Not Reportable 09/07/18 05:40 Bite Cells Not Reportable 09/07/18 05:40 Crenated Cell Not Reportable 09/07/18 05:40 Elliptocytes Not Reportable 09/07/18 05:40 Acanthocytes (Spur) Not Reportable 09/07/18 05:40 Rouleaux Not Reportable 09/07/18 05:40 Hemoglobin C Crystals Not Reportable 09/07/18 05:40 Schistocytes Not Reportable 09/07/18 05:40 Malaria parasites Not Reportable 09/07/18 05:40 Ceasar Bodies Not Reportable 09/07/18 05:40 Hem Pathologist Commnt No 09/07/18 05:40 D-Dimer 2768.33 ng/mlDDU (0-234) H 08/15/18 18:31 Heparin Anti-Xa, Unfract Negative (Negative) 08/22/18 15:29 POC ABG pH 7.276 (7.35-7.45) L 09/08/18 10:06 POC ABG pCO2 65.1 (35-45) H 09/08/18 10:06 POC ABG pO2 93 (80-105) 09/08/18 10:06 POC ABG HCO3 30.3 (22-26 mml/L) 09/08/18 10:06 POC ABG Total CO2 32 (23-27mmol/L) 09/08/18 10:06 POC ABG O2 Sat 96 09/08/18 10:06 POC ABG Base Excess 3 ((-2) - (+3)mmol/L) 09/08/18 10:06 VBG pH 7.187 (7.320-7.420) L* 08/15/18 18:19 FiO2 90 % 09/08/18 10:06 Sodium 144 mmol/L (137-145) 09/09/18 08:39 Potassium 4.1 mmol/L (3.6-5.0) 09/09/18 08:39 Chloride 105.6 mmol/L (98-107) 09/09/18 08:39 Carbon Dioxide 29 mmol/L (22-30) 09/09/18 08:39 Anion Gap 14 mmol/L 09/09/18 08:39 BUN 32 mg/dL (7-17) H 09/09/18 08:39 Creatinine 0.7 mg/dL (0.7-1.2) 09/09/18 08:39 Estimated GFR > 60 ml/min 09/09/18 08:39 BUN/Creatinine Ratio 46 % 09/09/18 08:39 Glucose 150 mg/dL (65-100) H 09/09/18 08:39 POC Glucose 150 (70-105) H 09/09/18 12:41 Hemoglobin A1c 6.4 % (4-6) H 08/15/18 23:09 Lactic Acid 1.20 mmol/L (0.7-2.0) 08/22/18 15:29 Calcium 8.9 mg/dL (8.4-10.2) 09/09/18 08:39 Phosphorus 3.30 mg/dL (2.5-4.5) 09/07/18 05:40 Magnesium 1.70 mg/dL (1.7-2.3) 09/07/18 05:40 Iron 26 ug/dL (37-170) L 09/07/18 05:40 TIBC 150 mcg/dL (250-450) L 09/07/18 05:40 Ferritin 375.0 ng/mL (13.0-400.0) 09/07/18 05:40 Total Bilirubin 0.20 mg/dL (0.1-1.2) 09/07/18 05:40 AST 88 units/L (5-40) H 09/07/18 05:40 ALT 43 units/L (7-56) 09/07/18 05:40 Alkaline Phosphatase 99 units/L (35-129) 09/07/18 05:40 Troponin T 0.317 ng/mL (0.00-0.029) H* D 08/18/18 13:39 C-Reactive Protein 5.00 mg/dL (0.00-1.30) H 08/25/18 05:20 Total Protein 5.8 g/dL (6.3-8.2) L 09/07/18 05:40 Albumin 2.1 g/dL (3.9-5) L 09/07/18 05:40 Albumin/Globulin Ratio 0.6 % 09/07/18 05:40 Triglycerides 197 mg/dL (2-149) H 08/22/18 06:45 Cholesterol 87 mg/dL (50-199) 08/15/18 18:31 LDL Cholesterol Direct 4 mg/dL (50-130) L 08/15/18 18:31 HDL Cholesterol 10 mg/dL (40-59) L 08/15/18 18:31 Cholesterol/HDL Ratio 8.70 % 08/15/18 18:31 Serotonin Release Assay See scanned results 08/22/18 15:29 Vitamin B12 388.4 pg/mL (211-911) 09/07/18 05:40 Folate 19.01 ng/mL (7.3-26.0) 09/07/18 05:40 Total Cortisol 21.4 mcg/dL () 08/25/18 08:52 Urine Color Rosemarie (Yellow) 08/15/18 19:15 Urine Turbidity Cloudy (Clear) 08/15/18 19:15 Urine pH 5.0 (5.0-7.0) 08/15/18 19:15 Ur Specific [place] 1.025 (1.003-1.030) 08/15/18 19:15 Urine Protein 30 mg/dl mg/dL (Negative) 08/15/18 19:15 Urine Glucose (UA) Neg mg/dL (Negative) 08/15/18 19:15 Urine Ketones Neg mg/dL (Negative) 08/15/18 19:15 Urine Blood Mod (Negative) 08/15/18 19:15 Urine Nitrite Neg (Negative) 08/15/18 19:15 Urine Bilirubin Neg (Negative) 08/15/18 19:15 Urine Urobilinogen 2.0 mg/dL (<2.0) 08/15/18 19:15 Ur Leukocyte Esterase Mod (Negative) 08/15/18 19:15 Urine WBC (Auto) 17.0 /HPF (0.0-6.0) H 08/15/18 19:15 Urine RBC (Auto) 5.0 /HPF (0.0-6.0) 08/15/18 19:15 Urine WBC Clumps 2+ /HPF 08/15/18 19:15 Amorphous Crystals 1+ 08/15/18 19:15 Hyaline Casts 54 /LPF 08/15/18 19:15 Granular Casts 14 /LPF 08/15/18 19:15 Urine Mucus Few /HPF 08/15/18 19:15 Vancomycin Trough 28.6 ug/mL (5.0-20.0) H 09/06/18 14:40 Salicylates < 0.3 mg/dL (2.8-20.0) L 08/15/18 19:14 Urine Opiates Screen Presumptive positive 08/15/18 19:15 Urine Methadone Screen Presumptive negative 08/15/18 19:15 Acetaminophen < 5.0 ug/mL (10.0-30.0) L 08/15/18 19:14 Ur Barbiturates Screen Presumptive negative 08/15/18 19:15 Ur Phencyclidine Scrn Presumptive negative 08/15/18 19:15 Ur Amphetamines Screen Presumptive negative 08/15/18 19:15 U Benzodiazepines Scrn Presumptive negative 08/15/18 19:15 Urine Cocaine Screen Presumptive negative 08/15/18 19:15 U Marijuana (THC) Screen Presumptive negative 08/15/18 19:15 Drugs of Abuse Note Disclamer 08/15/18 19:15 Heparin-induced Plt Ab Negative (Negative) 08/22/18 15:29 UF Heparin High Dose 0 % Release 08/22/18 15:29 NAZIA UFH Low Dose 0.1 0 % Release 08/22/18 15:29 NAZIA UFH Low Dose 0.5 0 % Release 08/22/18 15:29 Lymph Enumerat CD4/CD8 1.98 (0.86-5.00) 08/19/18 14:32 % CD3 Cells 44 % (57-85) L 08/19/18 14:32 Absolute CD3 Count 1451 cells/uL (840-3060) 08/19/18 14:32 % CD4 Cells 30 % (30-61) 08/19/18 14:32 Absolute CD4 Count 1004 cells/uL (490-1740) 08/19/18 14:32 % CD8 Cells 15 % (12-42) 08/19/18 14:32 Absolute CD8 Count 508 cells/uL (180-1170) 08/19/18 14:32 % CD19 Cells 41 % (6-29) H 08/19/18 14:32 Absolute CD19 Count 1290 cells/uL (110-660) H 08/19/18 14:32 C. difficile Toxin A&B Negative (Negative) 08/19/18 14:00 HIV 1&2 Antibody Rapid Non react (Non React) 08/18/18 13:39 HIV P24 Antigen Non react (Non React) 08/18/18 13:39 Miscellaneous Test Flexitest 1 08/30/18 10:00 Blood Type O POSITIVE 09/03/18 10:24 Antibody Screen Negative 09/03/18 10:24 Crossmatch See Detail 09/03/18 10:24 Active Medications - Current Medications Current Medications: Generic Name Dose Route Start Last Admin Trade Name Freq PRN Reason Stop Dose Admin Acetaminophen 650 mg 08/15/18 22:12 09/09/18 12:40 Tylenol PO 650 mg Q4H PRN Administration Pain MILD(1-3)/Fever >100.5/MONDRAGON Albuterol 2.5 mg 08/17/18 17:00 Proventil IH Q3HRT PRN Shortness Of Breath Albuterol/Ipratropium 1 ampul 08/20/18 14:00 09/09/18 14:10 Duoneb *Not For Prn Use* IH Not Given Q6HRT LAMAR Lipase/Protease/Amylase 1 each 09/02/18 10:40 Alis Elizabeth 10,500 Unit FEEDTUBE PRN PRN For Clogged Feeding Tube Arformoterol Tartrate 15 mcg 08/18/18 20:00 09/09/18 07:17 Brovana Nebu IH 15 mcg Q12HRT LAMAR Administration Budesonide 0.5 mg 08/18/18 20:00 09/09/18 07:17 Pulmicort IH 0.5 mg Q12HRT LAMAR Administration Carvedilol 3.125 mg 08/26/18 15:19 09/09/18 09:50 Coreg PO 3.125 mg BID LAMAR Administration Famotidine 20 mg 09/05/18 10:00 09/09/18 09:50 Pepcid PO 20 mg BID LAMAR Administration Fondaparinux 7.5 mg 09/07/18 10:00 09/09/18 09:51 Arixtra SUB-Q 7.5 mg DAILY [facility] Administration Furosemide 40 mg 09/09/18 22:00 Lasix IV 09/10/18 10:01 BID LAMAR Hydralazine HCl 10 mg 08/19/18 13:59 09/09/18 15:39 Apresoline IV 10 mg Q3H PRN Administration Hydralazine HCl 25 mg 09/01/18 14:00 09/09/18 13:54 Apresoline PO 25 mg Q8HR LAMAR Administration Hydromorphone HCl 1 mg 09/06/18 10:38 09/09/18 08:45 Dilaudid IV 1 mg Q4H PRN Administration Pain , Severe (7-10) Hydromorphone HCl 2 mg 09/06/18 12:00 09/09/18 12:41 Dilaudid PO 2 mg Q6HR [facility] Administration Hydrophilic Ointment 1 applic 08/15/18 21:55 09/01/18 09:07 Vaseline Lip Therapy TP 1 applic Q2HR PRN Administration Dry Lips Fentanyl Citrate 2,000 mcg in 100 mls @ 4.765 mls/hr 09/02/18 11:00 09/09/18 15:04 Fentanyl Drip Premix IV 4 mcg/kg/hr TITR LAMAR 19.06 mls/hr Administration Protocol 1 MCG/KG/HR Insulin Human Lispro 0 unit 09/04/18 18:00 09/08/18 18:00 Humalog SUB-Q Not Given Q6HR [facility] Protocol Methylprednisolone Sodium Succinate 40 mg 09/09/18 14:00 09/09/18 13:53 Solu-Medrol IV 09/12/18 06:01 40 mg Q8HR LAMAR Administration Metoclopramide HCl 5 mg 08/15/18 22:50 Reglan IV Q6H PRN Nausea And Vomiting Midazolam HCl 1 mg 09/07/18 09:23 09/09/18 04:59 Versed IV 1 mg Q4H PRN Administration AGITATION Ondansetron HCl 4 mg 08/15/18 22:12 08/31/18 17:52 Zofran IV 4 mg Q8H PRN Administration Nausea And Vomiting Potassium Chloride 20 meq 09/10/18 10:00 Potassium Chloride FEEDTUBE QDAY LAMAR Quetiapine Fumarate 200 mg 09/04/18 15:00 09/09/18 09:50 Seroquel PO 200 mg BID LAMAR Administration Senna/Docusate Sodium 2 tab 09/06/18 11:00 09/09/18 09:50 Senokot S PO 2 tab BID LAMAR Administration Simple Syrup 15 ml 09/02/18 11:24 Simple Syrup FEEDTUBE PRN PRN Hypoglycemia Simple Syrup 30 ml 09/02/18 11:24 Simple Syrup FEEDTUBE PRN PRN Hypoglycemia Sodium Bicarbonate 325 mg 09/02/18 10:40 Sodium Bicarbonate FEEDTUBE PRN PRN For Clogged Feeding Tube Sodium Chloride 10 ml 08/15/18 22:12 09/07/18 22:25 Sodium Chloride Flush Syringe 10 Ml IV 10 ml PRN PRN Administration LINE FLUSH Nutrition/Malnutrition Assess - Dietary Evaluation Nutrition/Malnutrition Findings: Nutrition Notes Start: 08/17/18 13:57 Freq: Status: Active Protocol: Document 09/06/18 11:37 MADAY (Rec: 09/06/18 11:45 MDALL [email or web address]- [email or web address]) Nutrition Notes Initial or Follow up Reassessment Current Diagnosis Acute Kidney Injury,COPD, Diabetes,Sepsis,Hypertension, Respiratory Failure, Hyperlipidemia Other Pertinent Diagnosis AMS, hypokalemia, NSTEMI, encephalopathy, pneu, hypernatermia, shock liver Current Diet TF - Vital High Protein at 55ml/hr Labs/Tests Reviewed (Na lab WNL) Pertinent Medications Morphine, Senokot BID Height 5 ft 7 in Weight 100.2 kg [place] Body Weight (kg) 61.36 BMI 34.6 Weight change and time frame Current wt obtained from bed scale Subjective/Other Information Pt tolerating TF at goal rate. Per RN, pt receiving 200ml water flushes q4h. Pt remains on vent support and has rectal tube. Pt also on 2 abx . Spoke with RN about necessity of scheduled senokot . RN says senokot ordered sec to morphine. Percent of energy/protein needs met: 70% energy 94% pro #1 Nutrition Diagnosis Inadequate oral intake Diagnosis Progress(for reassessment Continues documentation) Is patient on ventilator? Yes Is Patient Ambulatory and/or Out of Bed No REE-([place]-confined to bed) [phone] Calculation Used for Recommendations 65-70% energy needs Additional Notes Pro needs 2g/kg IBW: 123g/day Fluid needs 1ml/kcal Nutrition Intervention Nutrition Support: Continue Vital High Protein at 55ml/hr. Provide 50ml water flush q4h. Kcal 1,320 Protein (gm) 116 Fluid (mL) 1,103 Goal #1 TF tolerance Goal #2 TF to meet 65-70% energy and 80-100% pro needs Follow-Up By: 09/13/18 Additional Comments F/U: stable TF, vent status, wt, decrease water flush to 50q4h if Na lab remains WNL
[2018-09-09] MEDS: LASIX IV SCH (22:14)
[2018-09-10] MEDS: HumaLOG SUB-Q SCH ×5 (00:25→17:07)
[2018-09-10] MEDS: fentaNYL DRIP Premix 2,000 MCG/100 ML BAG IV SCH ×4 (00:26→17:15)
[2018-09-10] MEDS: DUONEB *Not for PRN Use IH SCH ×4 (04:19→19:12)
[2018-09-10 04:29] LABS: Basophils % (Auto) 0.4 % (0.0-1.8); Hematocrit 23.4 % (30.3-42.9); Hemoglobin 7.7 gm/dl (10.1-14.3); Lymphocytes # (Auto) 0.7 K/mm3 (1.2-5.4); Lymphocytes % (Auto) 8.2 % (13.4-35.0); Mean Corpuscular HGB Conc 33 % (30-34); Mean Corpuscular Volume 94 fl (79-97); Monocytes # (Auto) 0.3 K/mm3 (0.0-0.8); Monocytes % (Auto) 3.7 % (0.0-7.3); Platelet Count 164 K/mm3 (140-440); Red Blood Count 2.49 M/mm3 (3.65-5.03)
[2018-09-10 05:11] LABS: Alanine Aminotransferase 58 units/L (7-56); Albumin 2.5 g/dL (3.9-5); BUN/Creatinine Ratio 56; Blood Urea Nitrogen 39 mg/dL (7-17); Calcium 8.8 mg/dL (8.4-10.2); Hemolysis Index 4
[2018-09-10] MEDS: APRESOLINE PO SCH ×3 (06:33→22:35)
[2018-09-10] MEDS: DILAUDID PO SCH ×3 (06:33→17:07)
[2018-09-10] MEDS: VERSED IV PRN ×2 (07:00→15:15)
[2018-09-10] MEDS: PULMICORT IH SCH ×2 (07:48→19:12)
[2018-09-10] MEDS: BROVANA NEBU IH SCH ×2 (07:48→19:12)
[2018-09-10] MEDS: SOLU-Medrol IV SCH ×3 (08:40→22:34)
[2018-09-10] MEDS: TYLENOL PO PRN (08:40)
[2018-09-10] MEDS: APRESOLINE IV PRN ×2 (08:42→19:32)
--- NOTE | 2018-09-10 08:54 | Progress Note ---
Assessment and Plan Assessment and plan: --Acute hypoxic hypercapnic respiratory failure; extubated 08/29/18 Re Intubated 09/02/18 vent dependent Patient may need trach and PEG,wean as tolerated and extubate --Status post bronchoscopy, BAL negative nebulizers, pulmonaryl following --Thrombocytopenia: Platelet count is Stable Lovenox changed to Arixtra --Anemia: s/p transfusion[3 PRBC] hemoglobin 7.3-8.1-7.7 Stool for occult blood x 2 negative --Febrile illness; resolved --Hypomagnesemia; Hypernatremia; resolved, --Gonzalez lower extremity DVT; anticoagulation with Lovenox CTA chest negative for PE --Sepsis; aspiration pneumonia ;s/p micafungin, meropenem and Vanco per ID Monitor off antibiotics --Hypertension; continue current antihypertensives --Severe malnutrition/hypoalbuminemia; Dietitian following --Acute kidney injury; probably secondary to ATN, Resolved, --Acute systolic congestive heart failure; EF 25-30%, Cardio following --Elevated Transaminases; resolved --DVT prophylaxis; on full dose Lovenox Consults and recommendations noted and appreciated Plan of care reviewed with the patient's nurse The high probability of a clinically significant, sudden or life threatening deterioration of the [respiratory, cardiology, ID, renal and metabolic] system(s) required my full and direct attention, intervention and personal management. The aggregate critical care time was [32] minutes. This time is in addition to time spent performing reported procedures but includes the following: [x] Data Review and interpretation [x] Patient assessment and monitoring of vital signs [x] Documentation [x] Medication orders and management Plan of care is reviewed with the patient's son at the bedside as well as patient's nurse History Interval history: Patient seen and examined medical records reviewed Patient is alert and awake in mild distress Remains intubated on ventilatory support No new events reported by the nursing Vital signs stable Hospitalist Physical - Constitutional Vitals: Temp Pulse Resp BP Pulse Ox 100.2 F H 95 H 15 156/82 94 09/10/18 08:00 09/10/18 08:46 09/10/18 08:46 09/10/18 08:46 09/10/18 08:46 General appearance: Present: mild distress, well-nourished, obese, other (on vent) - EENT Eyes: Present: PERRL, EOM intact - Neck Neck: Present: supple, normal ROM - Respiratory Respiratory effort: normal Respiratory: bilateral: diminished, rhonchi, negative: rales, wheezing - Cardiovascular Rhythm: regular Heart Sounds: Present: S1 & S2 - Extremities Extremities: no ischemia Extremity abnormal: edema - Abdominal General gastrointestinal: soft, non-tender, non-distended, normal bowel sounds - Integumentary Integumentary: Present: clear, warm - Psychiatric Psychiatric: other (intubated on vent) - Neurologic Neurologic: other (intubated on vent) Results - Labs CBC & Chem 7: 09/10/18 04:20 09/10/18 04:20 Labs: Laboratory Last Values WBC 8.2 K/mm3 (4.5-11.0) 09/10/18 04:20 RBC 2.49 M/mm3 (3.65-5.03) L 09/10/18 04:20 Hgb 7.7 gm/dl (10.1-14.3) L 09/10/18 04:20 Hct 23.4 % (30.3-42.9) L 09/10/18 04:20 MCV 94 fl (79-97) 09/10/18 04:20 MCH 31 pg (28-32) 09/10/18 04:20 MCHC 33 % (30-34) 09/10/18 04:20 RDW 18.0 % (13.2-15.2) H 09/10/18 04:20 Plt Count 164 K/mm3 (140-440) 09/10/18 04:20 Lymph % (Auto) 8.2 % (13.4-35.0) L 09/10/18 04:20 [place] % (Auto) 3.7 % (0.0-7.3) 09/10/18 04:20 Eos % (Auto) 0.0 % (0.0-4.3) 09/10/18 04:20 Baso % (Auto) 0.4 % (0.0-1.8) 09/10/18 04:20 Lymph # 0.7 K/mm3 (1.2-5.4) L 09/10/18 04:20 Stanton # 0.3 K/mm3 (0.0-0.8) 09/10/18 04:20 Eos # 0.0 K/mm3 (0.0-0.4) 09/10/18 04:20 Baso # 0.0 K/mm3 (0.0-0.1) 09/10/18 04:20 Add Manual Diff Complete 09/07/18 05:40 Total Counted 100 09/07/18 05:40 Seg Neutrophils % 87.7 % (40.0-70.0) H 09/10/18 04:20 Seg Neuts % (Manual) 80.0 % (40.0-70.0) H 09/07/18 05:40 Band Neutrophils % 0 % 09/07/18 05:40 Lymphocytes % (Manual) 15.0 % (13.4-35.0) 09/07/18 05:40 Reactive Lymphs % (Man) 0 % 09/07/18 05:40 Monocytes % (Manual) 2.0 % (0.0-7.3) 09/07/18 05:40 Eosinophils % (Manual) 0 % (0.0-4.3) 09/07/18 05:40 Basophils % (Manual) 0 % (0.0-1.8) 09/07/18 05:40 Metamyelocytes % 2.0 % 09/07/18 05:40 Myelocytes % 1.0 % 09/07/18 05:40 Promyelocytes % 0 % 09/07/18 05:40 Blast Cells % 0 % 09/07/18 05:40 Nucleated RBC % 1.0 % (0.0-0.9) H 09/07/18 05:40 Seg Neutrophils # 7.2 K/mm3 (1.8-7.7) 09/10/18 04:20 Seg Neutrophils # Man 4.3 K/mm3 (1.8-7.7) 09/07/18 05:40 Band Neutrophils # 0.0 K/mm3 09/07/18 05:40 Abs Lymphs (Manual) 3262 cells/uL (850-3900) 08/19/18 14:32 Lymphocytes # (Manual) 0.8 K/mm3 (1.2-5.4) L 09/07/18 05:40 Abs React Lymphs (Man) 0.0 K/mm3 09/07/18 05:40 Monocytes # (Manual) 0.1 K/mm3 (0.0-0.8) 09/07/18 05:40 Eosinophils # (Manual) 0.0 K/mm3 (0.0-0.4) 09/07/18 05:40 Basophils # (Manual) 0.0 K/mm3 (0.0-0.1) 09/07/18 05:40 Metamyelocytes # 0.1 K/mm3 09/07/18 05:40 Myelocytes # 0.1 K/mm3 09/07/18 05:40 Promyelocytes # 0.0 K/mm3 09/07/18 05:40 Blast Cells # 0.0 K/mm3 09/07/18 05:40 WBC Morphology Not Reportable 09/07/18 05:40 Hypersegmented Neuts Not Reportable 09/07/18 05:40 Hyposegmented Neuts Not Reportable 09/07/18 05:40 Hypogranular Neuts Not Reportable 09/07/18 05:40 Smudge Cells Not Reportable 09/07/18 05:40 Toxic Granulation Not Reportable 09/07/18 05:40 Toxic Vacuolation Not Reportable 09/07/18 05:40 Dohle Bodies Not Reportable 09/07/18 05:40 Pelger-Huet Anomaly Not Reportable 09/07/18 05:40 Rosy Rods Not Reportable 09/07/18 05:40 Platelet Estimate Consistent w auto 09/07/18 05:40 Clumped Platelets Not Reportable 09/07/18 05:40 Plt Clumps, EDTA Not Reportable 09/07/18 05:40 Large Platelets Rare 09/07/18 05:40 Giant Platelets Not Reportable 09/07/18 05:40 Platelet Satelliting Not Reportable 09/07/18 05:40 Plt Morphology Comment Not Reportable 09/07/18 05:40 RBC Morphology Not Reportable 09/07/18 05:40 Dimorphic RBCs Not Reportable 09/07/18 05:40 Polychromasia Not Reportable 09/07/18 05:40 Hypochromasia Rare 09/07/18 05:40 Poikilocytosis Not Reportable 09/07/18 05:40 Anisocytosis Few 09/07/18 05:40 Microcytosis Not Reportable 09/07/18 05:40 Macrocytosis Not Reportable 09/07/18 05:40 Spherocytes Not Reportable 09/07/18 05:40 Pappenheimer Bodies Not Reportable 09/07/18 05:40 Sickle Cells Not Reportable 09/07/18 05:40 Target Cells Not Reportable 09/07/18 05:40 Tear Drop Cells Not Reportable 09/07/18 05:40 Ovalocytes Not Reportable 09/07/18 05:40 Helmet Cells Not Reportable 09/07/18 05:40 [place] Bodies Not Reportable 09/07/18 05:40 [place] Rings Not Reportable 09/07/18 05:40 [place] Cells Not Reportable 09/07/18 05:40 Bite Cells Not Reportable 09/07/18 05:40 Crenated Cell Not Reportable 09/07/18 05:40 Elliptocytes Not Reportable 09/07/18 05:40 Acanthocytes (Spur) Not Reportable 09/07/18 05:40 Rouleaux Not Reportable 09/07/18 05:40 Hemoglobin C Crystals Not Reportable 09/07/18 05:40 Schistocytes Not Reportable 09/07/18 05:40 Malaria parasites Not Reportable 09/07/18 05:40 Ceasar Bodies Not Reportable 09/07/18 05:40 Hem Pathologist Commnt No 09/07/18 05:40 D-Dimer 2768.33 ng/mlDDU (0-234) H 08/15/18 18:31 Heparin Anti-Xa, Unfract Negative (Negative) 08/22/18 15:29 POC ABG pH 7.410 (7.35-7.45) 09/10/18 04:39 POC ABG pCO2 51.4 (35-45) H 09/10/18 04:39 POC ABG pO2 89 (80-105) 09/10/18 04:39 POC ABG HCO3 32.5 (22-26 mml/L) 09/10/18 04:39 POC ABG Total CO2 34 (23-27mmol/L) 09/10/18 04:39 POC ABG O2 Sat 97 09/10/18 04:39 POC ABG Base Excess 8 ((-2) - (+3)mmol/L) 09/10/18 04:39 VBG pH 7.187 (7.320-7.420) L* 08/15/18 18:19 FiO2 100 % 09/10/18 04:39 Sodium 143 mmol/L (137-145) 09/10/18 04:20 Potassium 3.9 mmol/L (3.6-5.0) 09/10/18 04:20 Chloride 103.3 mmol/L (98-107) 09/10/18 04:20 Carbon Dioxide 31 mmol/L (22-30) H 09/10/18 04:20 Anion Gap 13 mmol/L 09/10/18 04:20 BUN 39 mg/dL (7-17) H 09/10/18 04:20 Creatinine 0.7 mg/dL (0.7-1.2) 09/10/18 04:20 Estimated GFR > 60 ml/min 09/10/18 04:20 BUN/Creatinine Ratio 56 % 09/10/18 04:20 Glucose 183 mg/dL (65-100) H 09/10/18 04:20 POC Glucose 185 (70-105) H 09/10/18 05:06 Hemoglobin A1c 6.4 % (4-6) H 08/15/18 23:09 Lactic Acid 1.20 mmol/L (0.7-2.0) 08/22/18 15:29 Calcium 8.8 mg/dL (8.4-10.2) 09/10/18 04:20 Phosphorus 4.10 mg/dL (2.5-4.5) 09/10/18 04:20 Magnesium 1.80 mg/dL (1.7-2.3) 09/10/18 04:20 Iron 26 ug/dL (37-170) L 09/07/18 05:40 TIBC 150 mcg/dL (250-450) L 09/07/18 05:40 Ferritin 375.0 ng/mL (13.0-400.0) 09/07/18 05:40 Total Bilirubin 0.30 mg/dL (0.1-1.2) 09/10/18 04:20 AST 85 units/L (5-40) H 09/10/18 04:20 ALT 58 units/L (7-56) H 09/10/18 04:20 Alkaline Phosphatase 90 units/L (35-129) 09/10/18 04:20 Troponin T 0.317 ng/mL (0.00-0.029) H* D 08/18/18 13:39 C-Reactive Protein 5.00 mg/dL (0.00-1.30) H 08/25/18 05:20 Total Protein 6.8 g/dL (6.3-8.2) 09/10/18 04:20 Albumin 2.5 g/dL (3.9-5) L 09/10/18 04:20 Albumin/Globulin Ratio 0.6 % 09/10/18 04:20 Triglycerides 197 mg/dL (2-149) H 08/22/18 06:45 Cholesterol 87 mg/dL (50-199) 08/15/18 18:31 LDL Cholesterol Direct 4 mg/dL (50-130) L 08/15/18 18:31 HDL Cholesterol 10 mg/dL (40-59) L 08/15/18 18:31 Cholesterol/HDL Ratio 8.70 % 08/15/18 18:31 Serotonin Release Assay See scanned results 08/22/18 15:29 Vitamin B12 388.4 pg/mL (211-911) 09/07/18 05:40 Folate 19.01 ng/mL (7.3-26.0) 09/07/18 05:40 Total Cortisol 21.4 mcg/dL () 08/25/18 08:52 Urine Color Rosemarie (Yellow) 08/15/18 19:15 Urine Turbidity Cloudy (Clear) 08/15/18 19:15 Urine pH 5.0 (5.0-7.0) 08/15/18 19:15 Ur Specific [place] 1.025 (1.003-1.030) 08/15/18 19:15 Urine Protein 30 mg/dl mg/dL (Negative) 08/15/18 19:15 Urine Glucose (UA) Neg mg/dL (Negative) 08/15/18 19:15 Urine Ketones Neg mg/dL (Negative) 08/15/18 19:15 Urine Blood Mod (Negative) 08/15/18 19:15 Urine Nitrite Neg (Negative) 08/15/18 19:15 Urine Bilirubin Neg (Negative) 08/15/18 19:15 Urine Urobilinogen 2.0 mg/dL (<2.0) 08/15/18 19:15 Ur Leukocyte Esterase Mod (Negative) 08/15/18 19:15 Urine WBC (Auto) 17.0 /HPF (0.0-6.0) H 08/15/18 19:15 Urine RBC (Auto) 5.0 /HPF (0.0-6.0) 08/15/18 19:15 Urine WBC Clumps 2+ /HPF 08/15/18 19:15 Amorphous Crystals 1+ 08/15/18 19:15 Hyaline Casts 54 /LPF 08/15/18 19:15 Granular Casts 14 /LPF 08/15/18 19:15 Urine Mucus Few /HPF 08/15/18 19:15 Vancomycin Trough 28.6 ug/mL (5.0-20.0) H 09/06/18 14:40 Salicylates < 0.3 mg/dL (2.8-20.0) L 08/15/18 19:14 Urine Opiates Screen Presumptive positive 08/15/18 19:15 Urine Methadone Screen Presumptive negative 08/15/18 19:15 Acetaminophen < 5.0 ug/mL (10.0-30.0) L 08/15/18 19:14 Ur Barbiturates Screen Presumptive negative 08/15/18 19:15 Ur Phencyclidine Scrn Presumptive negative 08/15/18 19:15 Ur Amphetamines Screen Presumptive negative 08/15/18 19:15 U Benzodiazepines Scrn Presumptive negative 08/15/18 19:15 Urine Cocaine Screen Presumptive negative 08/15/18 19:15 U Marijuana (THC) Screen Presumptive negative 08/15/18 19:15 Drugs of Abuse Note Disclamer 08/15/18 19:15 Heparin-induced Plt Ab Negative (Negative) 08/22/18 15:29 UF Heparin High Dose 0 % Release 08/22/18 15:29 NAZIA UFH Low Dose 0.1 0 % Release 08/22/18 15:29 NAZIA UFH Low Dose 0.5 0 % Release 08/22/18 15:29 Lymph Enumerat CD4/CD8 1.98 (0.86-5.00) 08/19/18 14:32 % CD3 Cells 44 % (57-85) L 08/19/18 14:32 Absolute CD3 Count 1451 cells/uL (840-3060) 08/19/18 14:32 % CD4 Cells 30 % (30-61) 08/19/18 14:32 Absolute CD4 Count 1004 cells/uL (490-1740) 08/19/18 14:32 % CD8 Cells 15 % (12-42) 08/19/18 14:32 Absolute CD8 Count 508 cells/uL (180-1170) 08/19/18 14:32 % CD19 Cells 41 % (6-29) H 08/19/18 14:32 Absolute CD19 Count 1290 cells/uL (110-660) H 08/19/18 14:32 C. difficile Toxin A&B Negative (Negative) 08/19/18 14:00 HIV 1&2 Antibody Rapid Non react (Non React) 08/18/18 13:39 HIV P24 Antigen Non react (Non React) 08/18/18 13:39 Miscellaneous Test Flexitest 1 08/30/18 10:00 Blood Type O POSITIVE 09/03/18 10:24 Antibody Screen Negative 09/03/18 10:24 Crossmatch See Detail 09/03/18 10:24 Active Medications - Current Medications Current Medications: Generic Name Dose Route Start Last Admin Trade Name Freq PRN Reason Stop Dose Admin Acetaminophen 650 mg 08/15/18 22:12 09/10/18 08:40 Tylenol PO 650 mg Q4H PRN Administration Pain MILD(1-3)/Fever >100.5/MONDRAGON Albuterol 2.5 mg 08/17/18 17:00 Proventil IH Q3HRT PRN Shortness Of Breath Albuterol/Ipratropium 1 ampul 08/20/18 14:00 09/10/18 07:48 Duoneb *Not For Prn Use* IH Not Given Q6HRT LAMAR Lipase/Protease/Amylase 1 each 09/02/18 10:40 Alis Elizabeth 10,500 Unit FEEDTUBE PRN PRN For Clogged Feeding Tube Arformoterol Tartrate 15 mcg 08/18/18 20:00 09/10/18 07:48 Brovana Nebu IH 15 mcg Q12HRT LAMAR Administration Budesonide 0.5 mg 08/18/18 20:00 09/10/18 07:48 Pulmicort IH 0.5 mg Q12HRT LAMAR Administration Carvedilol 3.125 mg 08/26/18 15:19 09/09/18 23:07 Coreg PO 3.125 mg BID LAMAR Administration Famotidine 20 mg 09/05/18 10:00 09/09/18 22:13 Pepcid PO 20 mg BID [facility] Administration Fondaparinux 7.5 mg 09/07/18 10:00 09/09/18 09:51 Arixtra SUB-Q 7.5 mg DAILY [facility] Administration Furosemide 40 mg 09/09/18 22:00 09/09/18 22:14 Lasix IV 09/10/18 10:01 40 mg BID LAMAR Administration Hydralazine HCl 10 mg 08/19/18 13:59 09/10/18 08:42 Apresoline IV 10 mg Q3H PRN Administration Hydralazine HCl 25 mg 09/01/18 14:00 09/10/18 06:33 Apresoline PO 25 mg Q8HR LAMAR Administration Hydromorphone HCl 1 mg 09/06/18 10:38 09/09/18 19:30 Dilaudid IV 1 mg Q4H PRN Administration Pain , Severe (7-10) Hydromorphone HCl 2 mg 09/06/18 12:00 09/10/18 06:33 Dilaudid PO 2 mg Q6HR [facility] Administration Hydrophilic Ointment 1 applic 08/15/18 21:55 09/01/18 09:07 Vaseline Lip Therapy TP 1 applic Q2HR PRN Administration Dry Lips Fentanyl Citrate 2,000 mcg in 100 mls @ 4.765 mls/hr 09/02/18 11:00 09/10/18 08:44 Fentanyl Drip Premix IV 4 mcg/kg/hr TITR LAMAR 19.06 mls/hr Administration Protocol 1 MCG/KG/HR Insulin Human Lispro 0 unit 09/04/18 18:00 09/10/18 07:20 Humalog SUB-Q Not Given Q6HR [facility] Protocol Methylprednisolone Sodium Succinate 40 mg 09/09/18 14:00 09/10/18 08:40 Solu-Medrol IV 09/12/18 06:01 40 mg Q8HR [facility] Administration Metoclopramide HCl 5 mg 08/15/18 22:50 Reglan IV Q6H PRN Nausea And Vomiting Midazolam HCl 1 mg 09/07/18 09:23 09/10/18 07:00 Versed IV 1 mg Q4H PRN Administration AGITATION Ondansetron HCl 4 mg 08/15/18 22:12 08/31/18 17:52 Zofran IV 4 mg Q8H PRN Administration Nausea And Vomiting Potassium Chloride 20 meq 09/10/18 10:00 Potassium Chloride FEEDTUBE QDAY LAMAR Quetiapine Fumarate 200 mg 09/04/18 15:00 09/09/18 23:05 Seroquel PO 200 mg BID LAMAR Administration Senna/Docusate Sodium 2 tab 09/06/18 11:00 09/09/18 23:06 Senokot S PO Not Given BID LAMAR Simple Syrup 15 ml 09/02/18 11:24 Simple Syrup FEEDTUBE PRN PRN Hypoglycemia Simple Syrup 30 ml 09/02/18 11:24 Simple Syrup FEEDTUBE PRN PRN Hypoglycemia Sodium Bicarbonate 325 mg 09/02/18 10:40 Sodium Bicarbonate FEEDTUBE PRN PRN For Clogged Feeding Tube Sodium Chloride 10 ml 08/15/18 22:12 09/07/18 22:25 Sodium Chloride Flush Syringe 10 Ml IV 10 ml PRN PRN Administration LINE FLUSH Nutrition/Malnutrition Assess - Dietary Evaluation Nutrition/Malnutrition Findings: Nutrition Notes Start: 08/17/18 13:57 Freq: Status: Active Protocol: Document 09/06/18 11:37 MADAY (Rec: 09/06/18 11:45 OHALL [email or web address] 1) Nutrition Notes Initial or Follow up Reassessment Current Diagnosis Acute Kidney Injury,COPD, Diabetes,Sepsis,Hypertension, Respiratory Failure, Hyperlipidemia Other Pertinent Diagnosis AMS, hypokalemia, NSTEMI, encephalopathy, pneu, hypernatermia, shock liver Current Diet TF - Vital High Protein at 55ml/hr Labs/Tests Reviewed (Na lab WNL) Pertinent Medications Morphine, Senokot BID Height 5 ft 7 in Weight 100.2 kg [place] Body Weight (kg) 61.36 BMI 34.6 Weight change and time frame Current wt obtained from bed scale Subjective/Other Information Pt tolerating TF at goal rate. Per RN, pt receiving 200ml water flushes q4h. Pt remains on vent support and has rectal tube. Pt also on 2 abx . Spoke with RN about necessity of scheduled senokot . RN says senokot ordered sec to morphine. Percent of energy/protein needs met: 70% energy 94% pro #1 Nutrition Diagnosis Inadequate oral intake Diagnosis Progress(for reassessment Continues documentation) Is patient on ventilator? Yes Is Patient Ambulatory and/or Out of Bed No REE-([facility] Antionend-confined to bed) [phone] Calculation Used for Recommendations 65-70% energy needs Additional Notes Pro needs 2g/kg IBW: 123g/day Fluid needs 1ml/kcal Nutrition Intervention Nutrition Support: Continue Vital High Protein at 55ml/hr. Provide 50ml water flush q4h. Kcal 1,320 Protein (gm) 116 Fluid (mL) 1,103 Goal #1 TF tolerance Goal #2 TF to meet 65-70% energy and 80-100% pro needs Follow-Up By: 09/13/18 Additional Comments F/U: stable TF, vent status, wt, decrease water flush to 50q4h if Na lab remains WNL
[2018-09-10] MEDS: PEPCID PO SCH ×2 (09:00→22:35)
[2018-09-10] MEDS: POTASSIUM CHLORIDE FEEDTUBE SCH (09:00)
[2018-09-10] MEDS: COREG PO SCH ×2 (09:00→22:34)
[2018-09-10] MEDS: ARIXTRA SUB-Q SCH (09:00)
[2018-09-10] MEDS: SENOKOT S PO SCH ×2 (09:00→22:35)
[2018-09-10] MEDS: LASIX IV SCH ×2 (09:01→17:07)
[2018-09-10] MEDS: DILAUDID IV PRN ×2 (09:01→16:30)
--- NOTE | 2018-09-10 13:21 | Progress Note ---
Assessment and Plan Severe sepsis Intermittent fevers and leukocytosis, resolved Fungemia s/p antifungal therapy Acute hypoxic-hypercapnic respiratory failure on MVS, re-intubated h/o COPD Acute kidney injury, resolved Acute encephalopathy( toxic-metabolic) Aspiration pneumonia/CAP New onset cardiomyopathy, LVEF 25-30% this admission Previous echo 03/30/2016 at [facility] revealed normal LVEF Previous stress MPI 03/29/2016 at [facility] revealed no ischemia Abnormal ECG showing LBBB, chronic Anemia s/p PRBC -Recent EGD at [facility] 08/08/2018 revealing irregular Z line, gastritis and small hiatal hernia Recent colonoscopy at [facility] 08/08/2018 revealing sigmoid polyp, transverse colon polyps, inflamed hemorrhoids and diverticulosis E.coli/Staph pneumonia Thrombocytopenia resolved Hypernatremia, resolved Hypokalemia, resolved -Continue with MVS -VAP bundle addressed -Aspiration precautions -Wean supplemental oxygen and PEEP to keep O2 sats 88-90% -ABG and CXR -CXR in the next 48 hours, if persistent significant pleural effusions will plan for therapeutic thoracentesis -Antibiotics/antifungals to complete course per ID -OGT for free water, medications and nutritional support. - Agitation and analgesia management -Monitor renal indices while on diuretics. -Monitor hemodynamics -Cardioprotective measures -Stress ulcer prophylaxis -CT head -Aspiration precautions -Accuchecks with glycemic control. Target glucose of 140-180 mg/dL -Continue bronchodilators with pulmonary hygiene per RT -Maintenance of sleep -wake cycle -Mobility program -Agitation and analgesia -Influenza and pneumonia vaccination per protocol ..care plan discussed at length with RN/RT at the bedside Discussed with the at the bedside. Updated him and care plan discussed. He is agreeable to trach placement. Once PEEP is down to 10, general surgery will place tracheostomy for chronic weaning PROGNOSIS :GUARDED CONDITION: CRITICAL CODE STATUS: FULL CODE The high probability of a clinically significant, sudden or life-threatening deterioration of the [respiratory, cardiovascular, renal] system(s) required my full and direct attention, intervention and personal management. The aggregate critical care time was [35] minutes without overlap. Time includes spent on; [x] Data Review and interpretation [x] Patient assessment and monitoring of vital signs [x] Documentation [x] Medication orders and management Subjective Date of service: 09/10/18 Principal diagnosis: anemia - DVT Interval history: Follow up: Aspiration PNA, Abnormal CXR, Hypotension, Acute renal failure, Acute encephaloapthy, Acute hypoxemic respiratory failure on MVS Seen and examined. Vitals, labs, medications, chart and imaging reviewed. 24 hours events reviewed. No fevers, no vomiting, agitation much improved. More awake and alert, tracking voice, obeying simple commands though inconsistently Remains orally intubated, critically ill. On fentanyl She remains on PEEP of 16, FIO2 70%, but weaning currently at the bedside. Objective Vital Signs - 12hr 09/10/18 09/10/18 09/10/18 01:30 01:45 02:00 Temperature Pulse Rate 97 H 97 H 97 H Pulse Rate [ Anterior Bilateral Throughout] Pulse Rate [ Apical] Respiratory 39 H 38 H 33 H Rate Respiratory Rate [Anterior Bilateral Throughout] Blood Pressure 137/57 135/62 134/60 O2 Sat by Pulse 95 95 95 Oximetry 09/10/18 09/10/18 09/10/18 02:15 02:30 02:45 Temperature Pulse Rate 96 H 98 H 95 H Pulse Rate [ Anterior Bilateral Throughout] Pulse Rate [ Apical] Respiratory 41 H 36 H 40 H Rate Respiratory Rate [Anterior Bilateral Throughout] Blood Pressure 127/60 126/66 126/63 O2 Sat by Pulse 96 95 97 Oximetry 09/10/18 09/10/18 09/10/18 03:00 03:11 03:15 Temperature 97.9 F Pulse Rate 95 H 95 H Pulse Rate [ Anterior Bilateral Throughout] Pulse Rate [ Apical] Respiratory 41 H 40 H Rate Respiratory Rate [Anterior Bilateral Throughout] Blood Pressure 126/63 131/56 O2 Sat by Pulse 96 96 Oximetry 09/10/18 09/10/18 09/10/18 03:30 03:45 04:00 Temperature Pulse Rate 93 H 94 H 93 H Pulse Rate [ Anterior Bilateral Throughout] Pulse Rate [ 91 H Apical] Respiratory 42 H 30 H 40 H Rate Respiratory Rate [Anterior Bilateral Throughout] Blood Pressure 127/48 128/60 133/60 O2 Sat by Pulse 97 96 97 Oximetry 09/10/18 09/10/18 09/10/18 04:15 04:20 04:30 Temperature Pulse Rate 99 H 91 H 91 H Pulse Rate [ Anterior Bilateral Throughout] Pulse Rate [ Apical] Respiratory 36 H 24 Rate Respiratory Rate [Anterior Bilateral Throughout] Blood Pressure 123/57 123/57 121/67 O2 Sat by Pulse 97 98 97 Oximetry 09/10/18 09/10/18 09/10/18 04:45 05:00 05:15 Temperature Pulse Rate 90 87 89 Pulse Rate [ Anterior Bilateral Throughout] Pulse Rate [ Apical] Respiratory 22 25 H 22 Rate Respiratory Rate [Anterior Bilateral Throughout] Blood Pressure 128/59 126/56 127/55 O2 Sat by Pulse 96 97 97 Oximetry 09/10/18 09/10/18 09/10/18 05:30 05:45 06:00 Temperature Pulse Rate 92 H 95 H 95 H Pulse Rate [ Anterior Bilateral Throughout] Pulse Rate [ Apical] Respiratory 13 19 16 Rate Respiratory Rate [Anterior Bilateral Throughout] Blood Pressure 126/56 165/71 168/76 O2 Sat by Pulse 97 95 95 Oximetry 09/10/18 09/10/18 09/10/18 06:16 06:30 06:33 Temperature Pulse Rate 98 H 100 H 99 H Pulse Rate [ Anterior Bilateral Throughout] Pulse Rate [ Apical] Respiratory 16 21 Rate Respiratory Rate [Anterior Bilateral Throughout] Blood Pressure 179/88 165/71 164/76 O2 Sat by Pulse 92 92 Oximetry 09/10/18 09/10/18 09/10/18 06:46 07:00 07:16 Temperature Pulse Rate 100 H 98 H 97 H Pulse Rate [ Anterior Bilateral Throughout] Pulse Rate [ Apical] Respiratory 24 21 28 H Rate Respiratory Rate [Anterior Bilateral Throughout] Blood Pressure 164/76 177/133 172/131 O2 Sat by Pulse 91 92 Oximetry 09/10/18 09/10/18 09/10/18 07:30 07:43 07:46 Temperature Pulse Rate 96 H 97 H 99 H Pulse Rate [ Anterior Bilateral Throughout] Pulse Rate [ Apical] Respiratory 18 14 Rate Respiratory Rate [Anterior Bilateral Throughout] Blood Pressure 172/131 179/85 179/85 O2 Sat by Pulse 94 92 92 Oximetry 09/10/18 09/10/18 09/10/18 07:48 08:00 08:10 Temperature 100.2 F H Pulse Rate 98 H Pulse Rate [ 96 H 99 H Anterior Bilateral Throughout] Pulse Rate [ 93 H Apical] Respiratory 27 H Rate Respiratory 44 H 44 H Rate [Anterior Bilateral Throughout] Blood Pressure 175/79 O2 Sat by Pulse 93 Oximetry 09/10/18 09/10/18 09/10/18 08:16 08:30 08:42 Temperature Pulse Rate 97 H 96 H 98 H Pulse Rate [ Anterior Bilateral Throughout] Pulse Rate [ Apical] Respiratory 34 H 28 H Rate Respiratory Rate [Anterior Bilateral Throughout] Blood Pressure 156/82 156/82 175/85 O2 Sat by Pulse 94 96 Oximetry 09/10/18 09/10/18 09/10/18 08:46 09:00 09:16 Temperature Pulse Rate 95 H 95 H 94 H Pulse Rate [ Anterior Bilateral Throughout] Pulse Rate [ Apical] Respiratory 15 40 H 44 H Rate Respiratory Rate [Anterior Bilateral Throughout] Blood Pressure 156/82 150/65 150/65 O2 Sat by Pulse 94 94 95 Oximetry 09/10/18 09/10/18 09/10/18 09:30 09:46 10:00 Temperature Pulse Rate 88 85 84 Pulse Rate [ Anterior Bilateral Throughout] Pulse Rate [ Apical] Respiratory 34 H 27 H 30 H Rate Respiratory Rate [Anterior Bilateral Throughout] Blood Pressure 156/82 156/82 156/82 O2 Sat by Pulse 96 97 97 Oximetry 09/10/18 09/10/18 09/10/18 10:16 10:30 10:46 Temperature Pulse Rate 81 81 81 Pulse Rate [ Anterior Bilateral Throughout] Pulse Rate [ Apical] Respiratory 26 H 25 H 21 Rate Respiratory Rate [Anterior Bilateral Throughout] Blood Pressure 103/48 103/48 103/48 O2 Sat by Pulse 99 99 99 Oximetry 09/10/18 09/10/18 09/10/18 11:00 11:16 11:26 Temperature 99.3 F Pulse Rate 79 82 Pulse Rate [ Anterior Bilateral Throughout] Pulse Rate [ Apical] Respiratory 22 15 Rate Respiratory Rate [Anterior Bilateral Throughout] Blood Pressure 101/49 101/49 O2 Sat by Pulse 98 99 Oximetry 09/10/18 09/10/18 09/10/18 11:30 11:46 11:47 Temperature Pulse Rate 86 76 87 Pulse Rate [ Anterior Bilateral Throughout] Pulse Rate [ Apical] Respiratory 19 20 Rate Respiratory Rate [Anterior Bilateral Throughout] Blood Pressure 101/49 101/49 101/49 O2 Sat by Pulse 98 98 97 Oximetry 09/10/18 12:00 Temperature Pulse Rate 85 Pulse Rate [ Anterior Bilateral Throughout] Pulse Rate [ 85 Apical] Respiratory 21 Rate Respiratory Rate [Anterior Bilateral Throughout] Blood Pressure 101/49 O2 Sat by Pulse 96 Oximetry Constitutional: appears uncomfortable, other (elderly looking CF, normocephalic and atraumatic) Eyes: non-icteric ENT: oropharynx moist, other (ETT 23 cm MARTHA) Neck: supple, no lymphadenopathy, no JVD, other (no thyromegaly) Effort: mildly labored Ascultation: Bilateral: diminished breath sounds, rales, rhonchi Percussion: Bilateral: not dull Cardiovascular: regular rate and rhythm Gastrointestinal: normoactive bowel sounds, soft, non-tender, non-distended Integumentary: normal Extremities: no cyanosis, no ischemia or petechiae, edema (Left lower extremity) Neurologic: non-focal exam (grossly), pupils equal and round, CN II-XII normal, motor strength normal and Psychiatric: other (unable to assess) CBC and BMP: 09/10/18 04:20 09/11/18 01:10 ABG, PT/INR, D-dimer: ABG POC ABG pH 7.410 (7.35-7.45) 09/10/18 04:39 POC ABG pCO2 51.4 (35-45) H 09/10/18 04:39 POC ABG pO2 89 (80-105) 09/10/18 04:39 POC ABG HCO3 32.5 (22-26 mml/L) 09/10/18 04:39 POC ABG Total CO2 34 (23-27mmol/L) 09/10/18 04:39 POC ABG O2 Sat 97 09/10/18 04:39 PT/INR, D-dimer D-Dimer 2768.33 ng/mlDDU (0-234) H 08/15/18 18:31 Abnormal lab findings: Abnormal Labs 08/15/18 08/15/18 08/15/18 17:52 17:52 17:52 WBC 12.7 H RBC 3.25 L Hgb Hct RDW Plt Count Lymph % (Auto) [place] % (Auto) Lymph # [place] # Seg Neutrophils % Seg Neuts % (Manual) Lymphocytes % (Manual) 6.0 L Nucleated RBC % Seg Neutrophils # Seg Neutrophils # Man Lymphocytes # (Manual) 0.8 L D-Dimer POC ABG pH POC ABG pCO2 POC ABG pO2 VBG pH Sodium Potassium 3.4 L Chloride 94.6 L Carbon Dioxide 17 L BUN 67 H Creatinine 3.5 H Glucose 131 H POC Glucose Hemoglobin A1c Lactic Acid 5.20 H* Calcium 7.6 L Phosphorus Magnesium Iron TIBC AST 887 H ALT 316 H Troponin T C-Reactive Protein Total Protein Albumin 3.1 L Triglycerides LDL Cholesterol Direct HDL Cholesterol Urine WBC (Auto) Vancomycin Trough Salicylates Acetaminophen % CD3 Cells % CD19 Cells Absolute CD19 Count Miscellaneous Test Crossmatch 08/15/18 08/15/18 08/15/18 18:11 18:19 18:31 WBC RBC Hgb Hct RDW Plt Count Lymph % (Auto) [place] % (Auto) Lymph # [place] # Seg Neutrophils % Seg Neuts % (Manual) Lymphocytes % (Manual) Nucleated RBC % Seg Neutrophils # Seg Neutrophils # Man Lymphocytes # (Manual) D-Dimer 2768.33 H POC ABG pH 7.173 L POC ABG pCO2 47.8 H POC ABG pO2 177 H VBG pH 7.187 L* Sodium Potassium Chloride Carbon Dioxide BUN Creatinine Glucose POC Glucose Hemoglobin A1c Lactic Acid Calcium Phosphorus Magnesium Iron TIBC AST ALT Troponin T C-Reactive Protein Total Protein Albumin Triglycerides LDL Cholesterol Direct HDL Cholesterol Urine WBC (Auto) Vancomycin Trough Salicylates Acetaminophen % CD3 Cells % CD19 Cells Absolute CD19 Count Miscellaneous Test Crossmatch 08/15/18 08/15/18 08/15/18 18:31 19:14 19:14 WBC RBC Hgb Hct RDW Plt Count Lymph % (Auto) [place] % (Auto) Lymph # [place] # Seg Neutrophils % Seg Neuts % (Manual) Lymphocytes % (Manual) Nucleated RBC % Seg Neutrophils # Seg Neutrophils # Man Lymphocytes # (Manual) D-Dimer POC ABG pH POC ABG pCO2 POC ABG pO2 VBG pH Sodium Potassium Chloride Carbon Dioxide BUN Creatinine Glucose POC Glucose Hemoglobin A1c Lactic Acid 2.70 H* Calcium Phosphorus Magnesium Iron TIBC AST ALT Troponin T 0.454 H* C-Reactive Protein Total Protein Albumin Triglycerides 356 H LDL Cholesterol Direct 4 L HDL Cholesterol 10 L Urine WBC (Auto) Vancomycin Trough Salicylates < 0.3 L Acetaminophen % CD3 Cells % CD19 Cells Absolute CD19 Count Miscellaneous Test Crossmatch 08/15/18 08/15/18 08/15/18 19:14 19:15 23:09 WBC RBC Hgb Hct RDW Plt Count Lymph % (Auto) [place] % (Auto) Lymph # [place] # Seg Neutrophils % Seg Neuts % (Manual) Lymphocytes % (Manual) Nucleated RBC % Seg Neutrophils # Seg Neutrophils # Man Lymphocytes # (Manual) D-Dimer POC ABG pH POC ABG pCO2 POC ABG pO2 VBG pH Sodium Potassium Chloride Carbon Dioxide BUN Creatinine Glucose POC Glucose Hemoglobin A1c Lactic Acid 3.20 H* Calcium Phosphorus Magnesium Iron TIBC AST ALT Troponin T C-Reactive Protein Total Protein Albumin Triglycerides LDL Cholesterol Direct HDL Cholesterol Urine WBC (Auto) 17.0 H Vancomycin Trough Salicylates Acetaminophen < 5.0 L % CD3 Cells % CD19 Cells Absolute CD19 Count Miscellaneous Test Crossmatch 08/15/18 08/16/18 08/16/18 23:09 01:41 05:38 WBC RBC 3.07 L Hgb 9.8 L Hct 28.7 L RDW Plt Count Lymph % (Auto) [place] % (Auto) Lymph # [place] # Seg Neutrophils % Seg Neuts % (Manual) 84.0 H Lymphocytes % (Manual) 6.0 L Nucleated RBC % 4.0 H Seg Neutrophils # Seg Neutrophils # Man Lymphocytes # (Manual) 0.5 L D-Dimer POC ABG pH 7.323 L POC ABG pCO2 34.7 L POC ABG pO2 78 L VBG pH Sodium Potassium Chloride Carbon Dioxide BUN Creatinine Glucose POC Glucose Hemoglobin A1c 6.4 H Lactic Acid Calcium Phosphorus Magnesium Iron TIBC AST ALT Troponin T C-Reactive Protein Total Protein Albumin Triglycerides LDL Cholesterol Direct HDL Cholesterol Urine WBC (Auto) Vancomycin Trough Salicylates Acetaminophen % CD3 Cells % CD19 Cells Absolute CD19 Count Miscellaneous Test Crossmatch 08/16/18 08/16/18 08/17/18 05:38 22:43 03:42 WBC RBC Hgb Hct RDW Plt Count Lymph % (Auto) [place] % (Auto) Lymph # [place] # Seg Neutrophils % Seg Neuts % (Manual) Lymphocytes % (Manual) Nucleated RBC % Seg Neutrophils # Seg Neutrophils # Man Lymphocytes # (Manual) D-Dimer POC ABG pH POC ABG pCO2 POC ABG pO2 VBG pH Sodium Potassium 2.9 L* 3.1 L 2.9 L* Chloride 108.8 H 111.9 H Carbon Dioxide 17 L 19 L 21 L BUN 62 H 40 H 33 H Creatinine 2.0 H Glucose 139 H 145 H POC Glucose Hemoglobin A1c Lactic Acid Calcium 7.8 L 8.3 L Phosphorus 1.50 L Magnesium Iron TIBC AST 619 H ALT 353 H Troponin T C-Reactive Protein Total Protein 6.1 L Albumin 2.8 L Triglycerides LDL Cholesterol Direct HDL Cholesterol Urine WBC (Auto) Vancomycin Trough Salicylates Acetaminophen % CD3 Cells % CD19 Cells Absolute CD19 Count Miscellaneous Test Crossmatch 08/17/18 08/17/18 08/18/18 11:02 16:42 03:28 WBC RBC Hgb Hct RDW Plt Count Lymph % (Auto) [place] % (Auto) Lymph # [place] # Seg Neutrophils % Seg Neuts % (Manual) Lymphocytes % (Manual) Nucleated RBC % Seg Neutrophils # Seg Neutrophils # Man Lymphocytes # (Manual) D-Dimer POC ABG pH 7.483 H 7.499 H POC ABG pCO2 POC ABG pO2 VBG pH Sodium 147 H Potassium 3.2 L Chloride 115.8 H Carbon Dioxide BUN 23 H Creatinine Glucose 121 H POC Glucose Hemoglobin A1c Lactic Acid Calcium 8.1 L Phosphorus 2.30 L D Magnesium Iron TIBC AST ALT Troponin T C-Reactive Protein Total Protein Albumin Triglycerides LDL Cholesterol Direct HDL Cholesterol Urine WBC (Auto) Vancomycin Trough Salicylates Acetaminophen % CD3 Cells % CD19 Cells Absolute CD19 Count Miscellaneous Test Crossmatch 08/18/18 08/18/18 08/18/18 04:10 13:39 13:39 WBC RBC Hgb Hct RDW Plt Count Lymph % (Auto) [place] % (Auto) Lymph # [place] # Seg Neutrophils % Seg Neuts % (Manual) Lymphocytes % (Manual) Nucleated RBC % Seg Neutrophils # Seg Neutrophils # Man Lymphocytes # (Manual) D-Dimer POC ABG pH POC ABG pCO2 POC ABG pO2 VBG pH Sodium 147 H Potassium 3.3 L Chloride 111.9 H Carbon Dioxide BUN 21 H Creatinine Glucose 113 H POC Glucose Hemoglobin A1c Lactic Acid Calcium Phosphorus 1.50 L D Magnesium Iron TIBC AST ALT Troponin T 0.317 H* D C-Reactive Protein 10.70 H Total Protein Albumin Triglycerides LDL Cholesterol Direct HDL Cholesterol Urine WBC (Auto) Vancomycin Trough Salicylates Acetaminophen % CD3 Cells % CD19 Cells Absolute CD19 Count Miscellaneous Test Crossmatch 08/18/18 08/19/18 08/19/18 16:51 03:47 04:15 WBC RBC Hgb Hct RDW Plt Count Lymph % (Auto) [place] % (Auto) Lymph # [place] # Seg Neutrophils % Seg Neuts % (Manual) Lymphocytes % (Manual) Nucleated RBC % Seg Neutrophils # Seg Neutrophils # Man Lymphocytes # (Manual) D-Dimer POC ABG pH 7.454 H 7.482 H POC ABG pCO2 POC ABG pO2 65 L VBG pH Sodium 154 H Potassium 3.3 L Chloride 115.1 H Carbon Dioxide BUN 19 H Creatinine Glucose 117 H POC Glucose Hemoglobin A1c Lactic Acid Calcium 7.8 L Phosphorus Magnesium Iron TIBC AST ALT Troponin T C-Reactive Protein Total Protein Albumin Triglycerides LDL Cholesterol Direct HDL Cholesterol Urine WBC (Auto) Vancomycin Trough Salicylates Acetaminophen % CD3 Cells % CD19 Cells Absolute CD19 Count Miscellaneous Test Crossmatch 08/19/18 08/19/18 08/20/18 14:32 16:18 03:51 WBC RBC Hgb Hct RDW Plt Count Lymph % (Auto) [place] % (Auto) Lymph # [place] # Seg Neutrophils % Seg Neuts % (Manual) Lymphocytes % (Manual) Nucleated RBC % Seg Neutrophils # Seg Neutrophils # Man Lymphocytes # (Manual) D-Dimer POC ABG pH 7.483 H POC ABG pCO2 33.4 L POC ABG pO2 51 L 74 L VBG pH Sodium Potassium Chloride Carbon Dioxide BUN Creatinine Glucose POC Glucose Hemoglobin A1c Lactic Acid Calcium Phosphorus Magnesium Iron TIBC AST ALT Troponin T C-Reactive Protein Total Protein Albumin Triglycerides LDL Cholesterol Direct HDL Cholesterol Urine WBC (Auto) Vancomycin Trough Salicylates Acetaminophen % CD3 Cells 44 L % CD19 Cells 41 H Absolute CD19 Count 1290 H Miscellaneous Test Crossmatch 08/20/18 08/21/18 08/21/18 05:25 03:54 05:45 WBC 24.1 H RBC 2.83 L Hgb 8.8 L Hct 26.7 L RDW 15.7 H Plt Count 127 L Lymph % (Auto) [place] % (Auto) Lymph # [place] # Seg Neutrophils % Seg Neuts % (Manual) 94.0 H Lymphocytes % (Manual) 4.0 L Nucleated RBC % 1.0 H Seg Neutrophils # Seg Neutrophils # Man 22.7 H Lymphocytes # (Manual) 1.0 L D-Dimer POC ABG pH POC ABG pCO2 31.9 L POC ABG pO2 66 L VBG pH Sodium 146 H D Potassium Chloride 111.2 H Carbon Dioxide BUN 24 H Creatinine Glucose 141 H POC Glucose Hemoglobin A1c Lactic Acid Calcium 8.1 L Phosphorus Magnesium Iron TIBC AST 65 H ALT 104 H Troponin T C-Reactive Protein Total Protein 6.2 L Albumin 2.6 L Triglycerides LDL Cholesterol Direct HDL Cholesterol Urine WBC (Auto) Vancomycin Trough Salicylates Acetaminophen % CD3 Cells % CD19 Cells Absolute CD19 Count Miscellaneous Test Crossmatch 08/21/18 08/22/18 08/22/18 05:45 06:20 06:45 WBC RBC Hgb Hct RDW Plt Count Lymph % (Auto) [place] % (Auto) Lymph # [place] # Seg Neutrophils % Seg Neuts % (Manual) Lymphocytes % (Manual) Nucleated RBC % Seg Neutrophils # Seg Neutrophils # Man Lymphocytes # (Manual) D-Dimer POC ABG pH POC ABG pCO2 32.9 L POC ABG pO2 VBG pH Sodium Potassium 3.5 L Chloride 109.4 H 112.4 H Carbon Dioxide 21 L 20 L BUN 50 H 61 H Creatinine 2.0 H D 1.9 H Glucose 144 H 154 H POC Glucose Hemoglobin A1c Lactic Acid Calcium 7.6 L 7.8 L Phosphorus Magnesium Iron TIBC AST ALT Troponin T C-Reactive Protein Total Protein 5.3 L Albumin 2.1 L Triglycerides LDL Cholesterol Direct HDL Cholesterol Urine WBC (Auto) Vancomycin Trough Salicylates Acetaminophen % CD3 Cells % CD19 Cells Absolute CD19 Count Miscellaneous Test Crossmatch 08/22/18 08/22/18 08/22/18 06:45 15:29 18:40 WBC RBC Hgb Hct RDW Plt Count Lymph % (Auto) [place] % (Auto) Lymph # [place] # Seg Neutrophils % Seg Neuts % (Manual) Lymphocytes % (Manual) Nucleated RBC % Seg Neutrophils # Seg Neutrophils # Man Lymphocytes # (Manual) D-Dimer POC ABG pH POC ABG pCO2 POC ABG pO2 VBG pH Sodium Potassium Chloride Carbon Dioxide BUN Creatinine Glucose POC Glucose 169 H Hemoglobin A1c Lactic Acid Calcium Phosphorus Magnesium Iron TIBC AST ALT Troponin T C-Reactive Protein 4.70 H Total Protein Albumin Triglycerides 197 H LDL Cholesterol Direct HDL Cholesterol Urine WBC (Auto) Vancomycin Trough Salicylates Acetaminophen % CD3 Cells % CD19 Cells Absolute CD19 Count Miscellaneous Test Crossmatch 08/23/18 08/23/18 08/23/18 03:59 21:19 Unknown WBC 12.1 H RBC 2.29 L Hgb 7.1 L Hct 21.7 L RDW 15.7 H Plt Count 106 L Lymph % (Auto) [place] % (Auto) Lymph # [place] # Seg Neutrophils % Seg Neuts % (Manual) 92.0 H Lymphocytes % (Manual) 4.0 L Nucleated RBC % Seg Neutrophils # Seg Neutrophils # Man 11.1 H Lymphocytes # (Manual) 0.5 L D-Dimer POC ABG pH 7.306 L POC ABG pCO2 31.3 L POC ABG pO2 119 H 75 L VBG pH Sodium Potassium Chloride Carbon Dioxide BUN Creatinine Glucose POC Glucose Hemoglobin A1c Lactic Acid Calcium Phosphorus Magnesium Iron TIBC AST ALT Troponin T C-Reactive Protein Total Protein Albumin Triglycerides LDL Cholesterol Direct HDL Cholesterol Urine WBC (Auto) Vancomycin Trough Salicylates Acetaminophen % CD3 Cells % CD19 Cells Absolute CD19 Count Miscellaneous Test Crossmatch 08/23/18 08/24/18 08/24/18 Unknown 04:18 08:30 WBC 12.8 H RBC 2.24 L Hgb 7.0 L Hct 21.1 L RDW Plt Count Lymph % (Auto) [place] % (Auto) Lymph # [place] # Seg Neutrophils % Seg Neuts % (Manual) 93.0 H Lymphocytes % (Manual) 6.0 L Nucleated RBC % Seg Neutrophils # Seg Neutrophils # Man 11.9 H Lymphocytes # (Manual) 0.8 L D-Dimer POC ABG pH POC ABG pCO2 POC ABG pO2 78 L VBG pH Sodium Potassium Chloride 115.7 H Carbon Dioxide 21 L BUN 64 H Creatinine 2.0 H Glucose 149 H POC Glucose Hemoglobin A1c Lactic Acid Calcium 7.5 L Phosphorus Magnesium Iron TIBC AST ALT Troponin T C-Reactive Protein Total Protein 4.8 L Albumin 2.0 L Triglycerides LDL Cholesterol Direct HDL Cholesterol Urine WBC (Auto) Vancomycin Trough Salicylates Acetaminophen % CD3 Cells % CD19 Cells Absolute CD19 Count Miscellaneous Test Crossmatch 08/24/18 08/24/18 08/24/18 08:30 17:44 18:28 WBC RBC Hgb Hct RDW Plt Count Lymph % (Auto) [place] % (Auto) Lymph # [place] # Seg Neutrophils % Seg Neuts % (Manual) Lymphocytes % (Manual) Nucleated RBC % Seg Neutrophils # Seg Neutrophils # Man Lymphocytes # (Manual) D-Dimer POC ABG pH 7.474 H POC ABG pCO2 POC ABG pO2 61 L VBG pH Sodium Potassium Chloride 108.3 H Carbon Dioxide 20 L BUN 65 H Creatinine 2.0 H Glucose 167 H POC Glucose 164 H Hemoglobin A1c Lactic Acid Calcium 7.7 L Phosphorus Magnesium Iron TIBC AST ALT Troponin T C-Reactive Protein Total Protein 5.3 L Albumin 2.2 L Triglycerides LDL Cholesterol Direct HDL Cholesterol Urine WBC (Auto) Vancomycin Trough Salicylates Acetaminophen % CD3 Cells % CD19 Cells Absolute CD19 Count Miscellaneous Test Crossmatch 08/25/18 08/25/18 08/25/18 03:35 05:20 05:20 WBC RBC Hgb 6.7 L Hct 21.0 L RDW Plt Count Lymph % (Auto) [place] % (Auto) Lymph # [place] # Seg Neutrophils % Seg Neuts % (Manual) Lymphocytes % (Manual) Nucleated RBC % Seg Neutrophils # Seg Neutrophils # Man Lymphocytes # (Manual) D-Dimer POC ABG pH POC ABG pCO2 POC ABG pO2 79 L VBG pH Sodium Potassium Chloride Carbon Dioxide 21 L BUN 71 H Creatinine 3.1 H D Glucose 171 H POC Glucose Hemoglobin A1c Lactic Acid Calcium 7.5 L Phosphorus Magnesium Iron TIBC AST ALT Troponin T C-Reactive Protein Total Protein Albumin Triglycerides LDL Cholesterol Direct HDL Cholesterol Urine WBC (Auto) Vancomycin Trough Salicylates Acetaminophen % CD3 Cells % CD19 Cells Absolute CD19 Count Miscellaneous Test Crossmatch 08/25/18 08/25/18 08/25/18 05:20 08:52 12:42 WBC RBC Hgb Hct RDW Plt Count Lymph % (Auto) [place] % (Auto) Lymph # [place] # Seg Neutrophils % Seg Neuts % (Manual) Lymphocytes % (Manual) Nucleated RBC % Seg Neutrophils # Seg Neutrophils # Man Lymphocytes # (Manual) D-Dimer POC ABG pH POC ABG pCO2 POC ABG pO2 VBG pH Sodium Potassium Chloride Carbon Dioxide BUN Creatinine Glucose POC Glucose 166 H Hemoglobin A1c Lactic Acid Calcium Phosphorus Magnesium Iron TIBC AST ALT Troponin T C-Reactive Protein 5.00 H Total Protein Albumin Triglycerides LDL Cholesterol Direct HDL Cholesterol Urine WBC (Auto) Vancomycin Trough Salicylates Acetaminophen % CD3 Cells % CD19 Cells Absolute CD19 Count Miscellaneous Test Crossmatch See Detail 08/25/18 08/26/18 08/26/18 18:05 00:13 04:53 WBC RBC Hgb Hct RDW Plt Count Lymph % (Auto) [place] % (Auto) Lymph # [place] # Seg Neutrophils % Seg Neuts % (Manual) Lymphocytes % (Manual) Nucleated RBC % Seg Neutrophils # Seg Neutrophils # Man Lymphocytes # (Manual) D-Dimer POC ABG pH POC ABG pCO2 30.9 L POC ABG pO2 70 L VBG pH Sodium Potassium Chloride Carbon Dioxide BUN Creatinine Glucose POC Glucose 121 H 164 H Hemoglobin A1c Lactic Acid Calcium Phosphorus Magnesium Iron TIBC AST ALT Troponin T C-Reactive Protein Total Protein Albumin Triglycerides LDL Cholesterol Direct HDL Cholesterol Urine WBC (Auto) Vancomycin Trough Salicylates Acetaminophen % CD3 Cells % CD19 Cells Absolute CD19 Count Miscellaneous Test Crossmatch 08/26/18 08/26/18 08/26/18 05:42 06:00 06:00 WBC RBC 2.62 L Hgb 7.7 L Hct 23.0 L RDW 22.0 H Plt Count Lymph % (Auto) 6.3 L [place] % (Auto) Lymph # 0.7 L [place] # Seg Neutrophils % 88.1 H Seg Neuts % (Manual) Lymphocytes % (Manual) Nucleated RBC % Seg Neutrophils # 9.6 H Seg Neutrophils # Man Lymphocytes # (Manual) D-Dimer POC ABG pH POC ABG pCO2 POC ABG pO2 VBG pH Sodium Potassium Chloride Carbon Dioxide 21 L BUN 70 H Creatinine 3.3 H Glucose 146 H POC Glucose 149 H Hemoglobin A1c Lactic Acid Calcium 8.0 L Phosphorus Magnesium Iron TIBC AST ALT Troponin T C-Reactive Protein Total Protein Albumin Triglycerides LDL Cholesterol Direct HDL Cholesterol Urine WBC (Auto) Vancomycin Trough Salicylates Acetaminophen % CD3 Cells % CD19 Cells Absolute CD19 Count Miscellaneous Test Crossmatch 08/26/18 08/26/18 08/27/18 11:37 23:54 04:35 WBC RBC 2.50 L Hgb 7.6 L Hct 22.3 L RDW 21.8 H Plt Count Lymph % (Auto) 7.3 L [place] % (Auto) Lymph # 0.7 L [place] # Seg Neutrophils % 85.6 H Seg Neuts % (Manual) Lymphocytes % (Manual) Nucleated RBC % Seg Neutrophils # 8.6 H Seg Neutrophils # Man Lymphocytes # (Manual) D-Dimer POC ABG pH POC ABG pCO2 POC ABG pO2 VBG pH Sodium Potassium Chloride Carbon Dioxide BUN Creatinine Glucose POC Glucose 183 H 150 H Hemoglobin A1c Lactic Acid Calcium Phosphorus Magnesium Iron TIBC AST ALT Troponin T C-Reactive Protein Total Protein Albumin Triglycerides LDL Cholesterol Direct HDL Cholesterol Urine WBC (Auto) Vancomycin Trough Salicylates Acetaminophen % CD3 Cells % CD19 Cells Absolute CD19 Count Miscellaneous Test Crossmatch 08/27/18 08/27/18 08/28/18 04:35 12:17 04:43 WBC RBC Hgb Hct RDW Plt Count Lymph % (Auto) [place] % (Auto) Lymph # [place] # Seg Neutrophils % Seg Neuts % (Manual) Lymphocytes % (Manual) Nucleated RBC % Seg Neutrophils # Seg Neutrophils # Man Lymphocytes # (Manual) D-Dimer POC ABG pH POC ABG pCO2 32.1 L 33.8 L POC ABG pO2 68 L 78 L VBG pH Sodium Potassium Chloride Carbon Dioxide 19 L BUN 67 H Creatinine 2.9 H Glucose 155 H POC Glucose Hemoglobin A1c Lactic Acid Calcium Phosphorus 4.70 H Magnesium Iron TIBC AST ALT Troponin T C-Reactive Protein Total Protein Albumin Triglycerides LDL Cholesterol Direct HDL Cholesterol Urine WBC (Auto) Vancomycin Trough Salicylates Acetaminophen % CD3 Cells % CD19 Cells Absolute CD19 Count Miscellaneous Test Crossmatch 08/28/18 08/28/18 08/28/18 05:03 05:20 05:20 WBC RBC 2.43 L Hgb 7.4 L Hct 21.8 L RDW 20.8 H Plt Count Lymph % (Auto) 7.6 L [place] % (Auto) 8.7 H Lymph # 0.7 L [place] # Seg Neutrophils % 82.9 H Seg Neuts % (Manual) Lymphocytes % (Manual) Nucleated RBC % Seg Neutrophils # Seg Neutrophils # Man Lymphocytes # (Manual) D-Dimer POC ABG pH POC ABG pCO2 POC ABG pO2 VBG pH Sodium Potassium Chloride 107.8 H Carbon Dioxide 21 L BUN 55 H Creatinine 2.0 H Glucose 177 H POC Glucose 160 H Hemoglobin A1c Lactic Acid Calcium Phosphorus Magnesium Iron TIBC AST ALT Troponin T C-Reactive Protein Total Protein Albumin Triglycerides LDL Cholesterol Direct HDL Cholesterol Urine WBC (Auto) Vancomycin Trough Salicylates Acetaminophen % CD3 Cells % CD19 Cells Absolute CD19 Count Miscellaneous Test Crossmatch 08/28/18 08/28/18 08/28/18 12:18 18:58 22:31 WBC RBC Hgb Hct RDW Plt Count Lymph % (Auto) [place] % (Auto) Lymph # [place] # Seg Neutrophils % Seg Neuts % (Manual) Lymphocytes % (Manual) Nucleated RBC % Seg Neutrophils # Seg Neutrophils # Man Lymphocytes # (Manual) D-Dimer POC ABG pH POC ABG pCO2 34.4 L POC ABG pO2 67 L VBG pH Sodium Potassium Chloride Carbon Dioxide BUN Creatinine Glucose POC Glucose 164 H 149 H Hemoglobin A1c Lactic Acid Calcium Phosphorus Magnesium Iron TIBC AST ALT Troponin T C-Reactive Protein Total Protein Albumin Triglycerides LDL Cholesterol Direct HDL Cholesterol Urine WBC (Auto) Vancomycin Trough Salicylates Acetaminophen % CD3 Cells % CD19 Cells Absolute CD19 Count Miscellaneous Test Crossmatch 08/28/18 08/29/18 08/29/18 23:33 05:25 05:25 WBC RBC 2.30 L Hgb 7.0 L Hct 20.9 L RDW 21.0 H Plt Count Lymph % (Auto) 11.5 L [place] % (Auto) 9.2 H Lymph # 0.8 L [place] # Seg Neutrophils % 78.8 H Seg Neuts % (Manual) Lymphocytes % (Manual) Nucleated RBC % Seg Neutrophils # Seg Neutrophils # Man Lymphocytes # (Manual) D-Dimer POC ABG pH POC ABG pCO2 POC ABG pO2 VBG pH Sodium Potassium Chloride 111.1 H Carbon Dioxide BUN 55 H Creatinine 1.8 H Glucose 162 H POC Glucose 143 H Hemoglobin A1c Lactic Acid Calcium Phosphorus Magnesium Iron TIBC AST 46 H ALT < 5 L Troponin T C-Reactive Protein Total Protein 5.7 L Albumin 2.1 L Triglycerides LDL Cholesterol Direct HDL Cholesterol Urine WBC (Auto) Vancomycin Trough Salicylates Acetaminophen % CD3 Cells % CD19 Cells Absolute CD19 Count Miscellaneous Test Crossmatch 08/29/18 08/29/18 08/30/18 18:19 23:35 05:03 WBC RBC Hgb Hct RDW Plt Count Lymph % (Auto) [place] % (Auto) Lymph # [place] # Seg Neutrophils % Seg Neuts % (Manual) Lymphocytes % (Manual) Nucleated RBC % Seg Neutrophils # Seg Neutrophils # Man Lymphocytes # (Manual) D-Dimer POC ABG pH POC ABG pCO2 POC ABG pO2 VBG pH Sodium Potassium Chloride Carbon Dioxide BUN Creatinine Glucose POC Glucose 155 H 139 H 122 H Hemoglobin A1c Lactic Acid Calcium Phosphorus Magnesium Iron TIBC AST ALT Troponin T C-Reactive Protein Total Protein Albumin Triglycerides LDL Cholesterol Direct HDL Cholesterol Urine WBC (Auto) Vancomycin Trough Salicylates Acetaminophen % CD3 Cells % CD19 Cells Absolute CD19 Count Miscellaneous Test Crossmatch 08/30/18 08/30/18 08/30/18 09:33 09:33 09:54 WBC RBC 2.58 L Hgb 7.9 L Hct 23.5 L RDW 20.9 H Plt Count Lymph % (Auto) 8.0 L [place] % (Auto) 9.7 H Lymph # 0.8 L [place] # 1.0 H Seg Neutrophils % 82.1 H Seg Neuts % (Manual) Lymphocytes % (Manual) Nucleated RBC % Seg Neutrophils # 8.2 H Seg Neutrophils # Man Lymphocytes # (Manual) D-Dimer POC ABG pH POC ABG pCO2 POC ABG pO2 VBG pH Sodium 146 H Potassium Chloride 110.7 H Carbon Dioxide BUN 56 H Creatinine 1.9 H Glucose 145 H POC Glucose Hemoglobin A1c Lactic Acid Calcium Phosphorus 4.60 H Magnesium Iron TIBC AST ALT < 5 L Troponin T C-Reactive Protein Total Protein Albumin 2.7 L Triglycerides LDL Cholesterol Direct HDL Cholesterol Urine WBC (Auto) Vancomycin Trough Salicylates Acetaminophen % CD3 Cells % CD19 Cells Absolute CD19 Count Miscellaneous Test Flexitest 1 H Crossmatch 08/30/18 08/30/18 08/30/18 09:57 11:26 18:08 WBC RBC Hgb Hct RDW Plt Count Lymph % (Auto) [place] % (Auto) Lymph # [place] # Seg Neutrophils % Seg Neuts % (Manual) Lymphocytes % (Manual) Nucleated RBC % Seg Neutrophils # Seg Neutrophils # Man Lymphocytes # (Manual) D-Dimer POC ABG pH POC ABG pCO2 POC ABG pO2 VBG pH Sodium Potassium Chloride Carbon Dioxide BUN Creatinine Glucose POC Glucose 149 H 156 H Hemoglobin A1c Lactic Acid Calcium Phosphorus Magnesium Iron TIBC AST ALT Troponin T C-Reactive Protein Total Protein Albumin Triglycerides LDL Cholesterol Direct HDL Cholesterol Urine WBC (Auto) Vancomycin Trough Salicylates Acetaminophen % CD3 Cells % CD19 Cells Absolute CD19 Count Miscellaneous Test Flexitest 1 H Crossmatch 08/30/18 08/31/18 08/31/18 23:14 05:16 08:40 WBC RBC Hgb Hct RDW Plt Count Lymph % (Auto) [place] % (Auto) Lymph # [place] # Seg Neutrophils % Seg Neuts % (Manual) Lymphocytes % (Manual) Nucleated RBC % Seg Neutrophils # Seg Neutrophils # Man Lymphocytes # (Manual) D-Dimer POC ABG pH POC ABG pCO2 POC ABG pO2 VBG pH Sodium 151 H Potassium Chloride 113.8 H Carbon Dioxide BUN 45 H Creatinine Glucose 144 H POC Glucose 117 H 133 H Hemoglobin A1c Lactic Acid Calcium Phosphorus Magnesium Iron TIBC AST ALT Troponin T C-Reactive Protein Total Protein Albumin Triglycerides LDL Cholesterol Direct HDL Cholesterol Urine WBC (Auto) Vancomycin Trough Salicylates Acetaminophen % CD3 Cells % CD19 Cells Absolute CD19 Count Miscellaneous Test Crossmatch 08/31/18 09/01/18 09/01/18 23:46 04:45 04:45 WBC RBC 2.38 L Hgb 7.3 L Hct 22.1 L RDW 21.1 H Plt Count Lymph % (Auto) [place] % (Auto) Lymph # [place] # Seg Neutrophils % Seg Neuts % (Manual) 93.0 H Lymphocytes % (Manual) 4.0 L Nucleated RBC % Seg Neutrophils # Seg Neutrophils # Man 10.1 H Lymphocytes # (Manual) 0.4 L D-Dimer POC ABG pH POC ABG pCO2 POC ABG pO2 VBG pH Sodium 156 H Potassium 3.1 L Chloride 115.2 H Carbon Dioxide BUN 34 H Creatinine Glucose 125 H POC Glucose 124 H Hemoglobin A1c Lactic Acid Calcium Phosphorus Magnesium Iron TIBC AST ALT Troponin T C-Reactive Protein Total Protein Albumin Triglycerides LDL Cholesterol Direct HDL Cholesterol Urine WBC (Auto) Vancomycin Trough Salicylates Acetaminophen % CD3 Cells % CD19 Cells Absolute CD19 Count Miscellaneous Test Crossmatch 09/01/18 09/01/18 09/01/18 05:34 11:20 17:52 WBC RBC Hgb Hct RDW Plt Count Lymph % (Auto) [place] % (Auto) Lymph # [place] # Seg Neutrophils % Seg Neuts % (Manual) Lymphocytes % (Manual) Nucleated RBC % Seg Neutrophils # Seg Neutrophils # Man Lymphocytes # (Manual) D-Dimer POC ABG pH 7.553 H POC ABG pCO2 POC ABG pO2 74 L VBG pH Sodium Potassium Chloride Carbon Dioxide BUN Creatinine Glucose POC Glucose 128 H 146 H Hemoglobin A1c Lactic Acid Calcium Phosphorus Magnesium Iron TIBC AST ALT Troponin T C-Reactive Protein Total Protein Albumin Triglycerides LDL Cholesterol Direct HDL Cholesterol Urine WBC (Auto) Vancomycin Trough Salicylates Acetaminophen % CD3 Cells % CD19 Cells Absolute CD19 Count Miscellaneous Test Crossmatch 09/01/18 09/02/18 09/02/18 17:52 04:13 04:58 WBC 16.4 H RBC 2.64 L Hgb 7.9 L Hct 24.3 L RDW 20.8 H Plt Count Lymph % (Auto) [place] % (Auto) Lymph # [place] # Seg Neutrophils % Seg Neuts % (Manual) 96.0 H Lymphocytes % (Manual) 1.0 L Nucleated RBC % Seg Neutrophils # Seg Neutrophils # Man 15.7 H Lymphocytes # (Manual) 0.2 L D-Dimer POC ABG pH 7.488 H POC ABG pCO2 POC ABG pO2 63 L VBG pH Sodium Potassium Chloride Carbon Dioxide BUN Creatinine Glucose POC Glucose 143 H Hemoglobin A1c Lactic Acid Calcium Phosphorus Magnesium Iron TIBC AST ALT Troponin T C-Reactive Protein Total Protein Albumin Triglycerides LDL Cholesterol Direct HDL Cholesterol Urine WBC (Auto) Vancomycin Trough Salicylates Acetaminophen % CD3 Cells % CD19 Cells Absolute CD19 Count Miscellaneous Test Crossmatch 09/02/18 09/02/18 09/02/18 04:58 11:03 18:18 WBC RBC Hgb Hct RDW Plt Count Lymph % (Auto) [place] % (Auto) Lymph # [place] # Seg Neutrophils % Seg Neuts % (Manual) Lymphocytes % (Manual) Nucleated RBC % Seg Neutrophils # Seg Neutrophils # Man Lymphocytes # (Manual) D-Dimer POC ABG pH 7.344 L POC ABG pCO2 52.8 H POC ABG pO2 VBG pH Sodium 158 H Potassium 2.9 L* Chloride 115.7 H Carbon Dioxide BUN 27 H Creatinine 0.6 L Glucose 128 H POC Glucose 121 H Hemoglobin A1c Lactic Acid Calcium Phosphorus Magnesium 1.60 L Iron TIBC AST 64 H ALT Troponin T C-Reactive Protein Total Protein Albumin 2.6 L Triglycerides LDL Cholesterol Direct HDL Cholesterol Urine WBC (Auto) Vancomycin Trough Salicylates Acetaminophen % CD3 Cells % CD19 Cells Absolute CD19 Count Miscellaneous Test Crossmatch 09/02/18 09/03/18 09/03/18 23:06 03:36 04:25 WBC RBC 2.20 L Hgb 6.7 L Hct 20.9 L RDW 21.1 H Plt Count Lymph % (Auto) [place] % (Auto) Lymph # [place] # Seg Neutrophils % Seg Neuts % (Manual) 90.0 H Lymphocytes % (Manual) 5.0 L Nucleated RBC % Seg Neutrophils # Seg Neutrophils # Man 8.7 H Lymphocytes # (Manual) 0.5 L D-Dimer POC ABG pH POC ABG pCO2 POC ABG pO2 54 L VBG pH Sodium Potassium Chloride Carbon Dioxide BUN Creatinine Glucose POC Glucose 121 H Hemoglobin A1c Lactic Acid Calcium Phosphorus Magnesium Iron TIBC AST ALT Troponin T C-Reactive Protein Total Protein Albumin Triglycerides LDL Cholesterol Direct HDL Cholesterol Urine WBC (Auto) Vancomycin Trough Salicylates Acetaminophen % CD3 Cells % CD19 Cells Absolute CD19 Count Miscellaneous Test Crossmatch 09/03/18 09/03/18 09/03/18 04:25 05:45 10:24 WBC RBC Hgb Hct RDW Plt Count Lymph % (Auto) [place] % (Auto) Lymph # [place] # Seg Neutrophils % Seg Neuts % (Manual) Lymphocytes % (Manual) Nucleated RBC % Seg Neutrophils # Seg Neutrophils # Man Lymphocytes # (Manual) D-Dimer POC ABG pH POC ABG pCO2 POC ABG pO2 VBG pH Sodium 158 H Potassium 3.1 L Chloride 120.4 H Carbon Dioxide BUN 25 H Creatinine 0.6 L Glucose 127 H POC Glucose 178 H Hemoglobin A1c Lactic Acid Calcium 7.9 L Phosphorus Magnesium Iron TIBC AST ALT Troponin T C-Reactive Protein Total Protein 6.0 L Albumin 2.4 L Triglycerides LDL Cholesterol Direct HDL Cholesterol Urine WBC (Auto) Vancomycin Trough Salicylates Acetaminophen % CD3 Cells % CD19 Cells Absolute CD19 Count Miscellaneous Test Crossmatch See Detail 09/03/18 09/03/18 09/04/18 11:27 23:09 04:42 WBC RBC Hgb Hct RDW Plt Count Lymph % (Auto) [place] % (Auto) Lymph # [place] # Seg Neutrophils % Seg Neuts % (Manual) Lymphocytes % (Manual) Nucleated RBC % Seg Neutrophils # Seg Neutrophils # Man Lymphocytes # (Manual) D-Dimer POC ABG pH 7.293 L POC ABG pCO2 50.2 H POC ABG pO2 VBG pH Sodium Potassium Chloride Carbon Dioxide BUN Creatinine Glucose POC Glucose 107 H 139 H Hemoglobin A1c Lactic Acid Calcium Phosphorus Magnesium Iron TIBC AST ALT Troponin T C-Reactive Protein Total Protein Albumin Triglycerides LDL Cholesterol Direct HDL Cholesterol Urine WBC (Auto) Vancomycin Trough Salicylates Acetaminophen % CD3 Cells % CD19 Cells Absolute CD19 Count Miscellaneous Test Crossmatch 09/04/18 09/04/18 09/04/18 05:00 06:30 06:30 WBC RBC 2.32 L Hgb 7.0 L Hct 21.9 L RDW 20.2 H Plt Count Lymph % (Auto) [place] % (Auto) Lymph # [place] # Seg Neutrophils % 80.1 H Seg Neuts % (Manual) Lymphocytes % (Manual) Nucleated RBC % Seg Neutrophils # 8.2 H Seg Neutrophils # Man Lymphocytes # (Manual) D-Dimer POC ABG pH POC ABG pCO2 POC ABG pO2 VBG pH Sodium 150 H D Potassium Chloride 115.9 H Carbon Dioxide BUN 21 H Creatinine 0.6 L Glucose 125 H POC Glucose 154 H Hemoglobin A1c Lactic Acid Calcium 7.9 L Phosphorus Magnesium 1.50 L Iron TIBC AST ALT Troponin T C-Reactive Protein Total Protein Albumin Triglycerides LDL Cholesterol Direct HDL Cholesterol Urine WBC (Auto) Vancomycin Trough Salicylates Acetaminophen % CD3 Cells % CD19 Cells Absolute CD19 Count Miscellaneous Test Crossmatch 09/04/18 09/04/18 09/04/18 11:20 11:51 18:27 WBC RBC Hgb Hct RDW Plt Count Lymph % (Auto) [place] % (Auto) Lymph # [place] # Seg Neutrophils % Seg Neuts % (Manual) Lymphocytes % (Manual) Nucleated RBC % Seg Neutrophils # Seg Neutrophils # Man Lymphocytes # (Manual) D-Dimer POC ABG pH 7.244 L POC ABG pCO2 54.2 H POC ABG pO2 62 L VBG pH Sodium Potassium Chloride Carbon Dioxide BUN Creatinine Glucose POC Glucose 156 H 129 H Hemoglobin A1c Lactic Acid Calcium Phosphorus Magnesium Iron TIBC AST ALT Troponin T C-Reactive Protein Total Protein Albumin Triglycerides LDL Cholesterol Direct HDL Cholesterol Urine WBC (Auto) Vancomycin Trough Salicylates Acetaminophen % CD3 Cells % CD19 Cells Absolute CD19 Count Miscellaneous Test Crossmatch 09/05/18 09/05/18 09/05/18 03:46 04:00 04:00 WBC RBC 2.13 L Hgb 6.4 L Hct 20.1 L RDW 19.9 H Plt Count 117 L Lymph % (Auto) [place] % (Auto) Lymph # 0.9 L [place] # Seg Neutrophils % 81.7 H Seg Neuts % (Manual) Lymphocytes % (Manual) Nucleated RBC % Seg Neutrophils # Seg Neutrophils # Man Lymphocytes # (Manual) D-Dimer POC ABG pH 7.282 L POC ABG pCO2 57.3 H POC ABG pO2 124 H VBG pH Sodium Potassium Chloride 111.0 H Carbon Dioxide BUN 20 H Creatinine Glucose 130 H POC Glucose Hemoglobin A1c Lactic Acid Calcium 7.8 L Phosphorus Magnesium 1.60 L Iron TIBC AST ALT Troponin T C-Reactive Protein Total Protein Albumin Triglycerides LDL Cholesterol Direct HDL Cholesterol Urine WBC (Auto) Vancomycin Trough Salicylates Acetaminophen % CD3 Cells % CD19 Cells Absolute CD19 Count Miscellaneous Test Crossmatch 09/05/18 09/05/18 09/05/18 12:15 17:24 23:24 WBC RBC Hgb Hct RDW Plt Count Lymph % (Auto) [place] % (Auto) Lymph # [place] # Seg Neutrophils % Seg Neuts % (Manual) Lymphocytes % (Manual) Nucleated RBC % Seg Neutrophils # Seg Neutrophils # Man Lymphocytes # (Manual) D-Dimer POC ABG pH POC ABG pCO2 POC ABG pO2 VBG pH Sodium Potassium Chloride Carbon Dioxide BUN Creatinine Glucose POC Glucose 143 H 116 H 116 H Hemoglobin A1c Lactic Acid Calcium Phosphorus Magnesium Iron TIBC AST ALT Troponin T C-Reactive Protein Total Protein Albumin Triglycerides LDL Cholesterol Direct HDL Cholesterol Urine WBC (Auto) Vancomycin Trough Salicylates Acetaminophen % CD3 Cells % CD19 Cells Absolute CD19 Count Miscellaneous Test Crossmatch 09/06/18 09/06/18 09/06/18 03:33 04:20 04:20 WBC RBC 2.45 L Hgb 7.4 L Hct 23.0 L RDW 18.1 H Plt Count 99 L Lymph % (Auto) [place] % (Auto) Lymph # 1.0 L [place] # Seg Neutrophils % 78.0 H Seg Neuts % (Manual) Lymphocytes % (Manual) Nucleated RBC % Seg Neutrophils # Seg Neutrophils # Man Lymphocytes # (Manual) D-Dimer POC ABG pH 7.303 L POC ABG pCO2 49.2 H POC ABG pO2 73 L VBG pH Sodium Potassium Chloride 109.3 H Carbon Dioxide BUN 24 H Creatinine Glucose 108 H POC Glucose Hemoglobin A1c Lactic Acid Calcium 8.1 L Phosphorus Magnesium Iron TIBC AST ALT Troponin T C-Reactive Protein Total Protein Albumin Triglycerides LDL Cholesterol Direct HDL Cholesterol Urine WBC (Auto) Vancomycin Trough Salicylates Acetaminophen % CD3 Cells % CD19 Cells Absolute CD19 Count Miscellaneous Test Crossmatch 09/06/18 09/06/18 09/06/18 04:55 11:29 14:40 WBC RBC Hgb Hct RDW Plt Count Lymph % (Auto) [place] % (Auto) Lymph # [place] # Seg Neutrophils % Seg Neuts % (Manual) Lymphocytes % (Manual) Nucleated RBC % Seg Neutrophils # Seg Neutrophils # Man Lymphocytes # (Manual) D-Dimer POC ABG pH POC ABG pCO2 POC ABG pO2 VBG pH Sodium Potassium Chloride Carbon Dioxide BUN Creatinine Glucose POC Glucose 124 H 149 H Hemoglobin A1c Lactic Acid Calcium Phosphorus Magnesium Iron TIBC AST ALT Troponin T C-Reactive Protein Total Protein Albumin Triglycerides LDL Cholesterol Direct HDL Cholesterol Urine WBC (Auto) Vancomycin Trough 28.6 H Salicylates Acetaminophen % CD3 Cells % CD19 Cells Absolute CD19 Count Miscellaneous Test Crossmatch 09/06/18 09/06/18 09/07/18 17:43 20:08 00:39 WBC RBC Hgb Hct RDW Plt Count Lymph % (Auto) [place] % (Auto) Lymph # [place] # Seg Neutrophils % Seg Neuts % (Manual) Lymphocytes % (Manual) Nucleated RBC % Seg Neutrophils # Seg Neutrophils # Man Lymphocytes # (Manual) D-Dimer POC ABG pH POC ABG pCO2 POC ABG pO2 VBG pH Sodium Potassium Chloride Carbon Dioxide BUN Creatinine Glucose POC Glucose 138 H 118 H 131 H Hemoglobin A1c Lactic Acid Calcium Phosphorus Magnesium Iron TIBC AST ALT Troponin T C-Reactive Protein Total Protein Albumin Triglycerides LDL Cholesterol Direct HDL Cholesterol Urine WBC (Auto) Vancomycin Trough Salicylates Acetaminophen % CD3 Cells % CD19 Cells Absolute CD19 Count Miscellaneous Test Crossmatch 09/07/18 09/07/18 09/07/18 05:40 05:40 12:03 WBC RBC 2.40 L Hgb 7.3 L Hct 22.5 L RDW 17.8 H Plt Count 92 L Lymph % (Auto) [place] % (Auto) Lymph # [place] # Seg Neutrophils % Seg Neuts % (Manual) 80.0 H Lymphocytes % (Manual) Nucleated RBC % 1.0 H Seg Neutrophils # Seg Neutrophils # Man Lymphocytes # (Manual) 0.8 L D-Dimer POC ABG pH POC ABG pCO2 POC ABG pO2 VBG pH Sodium Potassium Chloride 109.8 H Carbon Dioxide BUN 26 H Creatinine Glucose 118 H POC Glucose 145 H Hemoglobin A1c Lactic Acid Calcium 8.0 L Phosphorus Magnesium Iron 26 L TIBC 150 L AST 88 H ALT Troponin T C-Reactive Protein Total Protein 5.8 L Albumin 2.1 L Triglycerides LDL Cholesterol Direct HDL Cholesterol Urine WBC (Auto) Vancomycin Trough Salicylates Acetaminophen % CD3 Cells % CD19 Cells Absolute CD19 Count Miscellaneous Test Crossmatch 09/07/18 09/07/18 09/08/18 17:39 23:21 05:48 WBC RBC Hgb Hct RDW Plt Count Lymph % (Auto) [place] % (Auto) Lymph # [place] # Seg Neutrophils % Seg Neuts % (Manual) Lymphocytes % (Manual) Nucleated RBC % Seg Neutrophils # Seg Neutrophils # Man Lymphocytes # (Manual) D-Dimer POC ABG pH POC ABG pCO2 POC ABG pO2 VBG pH Sodium Potassium Chloride Carbon Dioxide BUN Creatinine Glucose POC Glucose 128 H 136 H 129 H Hemoglobin A1c Lactic Acid Calcium Phosphorus Magnesium Iron TIBC AST ALT Troponin T C-Reactive Protein Total Protein Albumin Triglycerides LDL Cholesterol Direct HDL Cholesterol Urine WBC (Auto) Vancomycin Trough Salicylates Acetaminophen % CD3 Cells % CD19 Cells Absolute CD19 Count Miscellaneous Test Crossmatch 09/08/18 09/08/18 09/08/18 06:17 10:06 10:42 WBC RBC Hgb Hct RDW Plt Count Lymph % (Auto) [place] % (Auto) Lymph # [place] # Seg Neutrophils % Seg Neuts % (Manual) Lymphocytes % (Manual) Nucleated RBC % Seg Neutrophils # Seg Neutrophils # Man Lymphocytes # (Manual) D-Dimer POC ABG pH 7.292 L 7.276 L POC ABG pCO2 56.9 H 65.1 H POC ABG pO2 VBG pH Sodium 146 H Potassium Chloride 109.1 H Carbon Dioxide BUN 28 H Creatinine Glucose 165 H POC Glucose Hemoglobin A1c Lactic Acid Calcium Phosphorus Magnesium Iron TIBC AST ALT Troponin T C-Reactive Protein Total Protein Albumin Triglycerides LDL Cholesterol Direct HDL Cholesterol Urine WBC (Auto) Vancomycin Trough Salicylates Acetaminophen % CD3 Cells % CD19 Cells Absolute CD19 Count Miscellaneous Test Crossmatch 09/08/18 09/08/18 09/08/18 11:06 18:07 23:20 WBC RBC Hgb Hct RDW Plt Count Lymph % (Auto) [place] % (Auto) Lymph # [place] # Seg Neutrophils % Seg Neuts % (Manual) Lymphocytes % (Manual) Nucleated RBC % Seg Neutrophils # Seg Neutrophils # Man Lymphocytes # (Manual) D-Dimer POC ABG pH POC ABG pCO2 POC ABG pO2 VBG pH Sodium Potassium Chloride Carbon Dioxide BUN Creatinine Glucose POC Glucose 165 H 140 H 124 H Hemoglobin A1c Lactic Acid Calcium Phosphorus Magnesium Iron TIBC AST ALT Troponin T C-Reactive Protein Total Protein Albumin Triglycerides LDL Cholesterol Direct HDL Cholesterol Urine WBC (Auto) Vancomycin Trough Salicylates Acetaminophen % CD3 Cells % CD19 Cells Absolute CD19 Count Miscellaneous Test Crossmatch 09/09/18 09/09/18 09/09/18 05:04 08:39 08:39 WBC RBC 2.60 L Hgb 8.1 L Hct 24.6 L RDW 17.9 H Plt Count Lymph % (Auto) [place] % (Auto) Lymph # [place] # Seg Neutrophils % Seg Neuts % (Manual) Lymphocytes % (Manual) Nucleated RBC % Seg Neutrophils # Seg Neutrophils # Man Lymphocytes # (Manual) D-Dimer POC ABG pH POC ABG pCO2 POC ABG pO2 VBG pH Sodium Potassium Chloride Carbon Dioxide BUN 32 H Creatinine Glucose 150 H POC Glucose 168 H Hemoglobin A1c Lactic Acid Calcium Phosphorus Magnesium Iron TIBC AST ALT Troponin T C-Reactive Protein Total Protein Albumin Triglycerides LDL Cholesterol Direct HDL Cholesterol Urine WBC (Auto) Vancomycin Trough Salicylates Acetaminophen % CD3 Cells % CD19 Cells Absolute CD19 Count Miscellaneous Test Crossmatch 09/09/18 09/10/18 09/10/18 12:41 04:20 04:20 WBC RBC 2.49 L Hgb 7.7 L Hct 23.4 L RDW 18.0 H Plt Count Lymph % (Auto) 8.2 L [place] % (Auto) Lymph # 0.7 L [place] # Seg Neutrophils % 87.7 H Seg Neuts % (Manual) Lymphocytes % (Manual) Nucleated RBC % Seg Neutrophils # Seg Neutrophils # Man Lymphocytes # (Manual) D-Dimer POC ABG pH POC ABG pCO2 POC ABG pO2 VBG pH Sodium Potassium Chloride Carbon Dioxide 31 H BUN 39 H Creatinine Glucose 183 H POC Glucose 150 H Hemoglobin A1c Lactic Acid Calcium Phosphorus Magnesium Iron TIBC AST 85 H ALT 58 H Troponin T C-Reactive Protein Total Protein Albumin 2.5 L Triglycerides LDL Cholesterol Direct HDL Cholesterol Urine WBC (Auto) Vancomycin Trough Salicylates Acetaminophen % CD3 Cells % CD19 Cells Absolute CD19 Count Miscellaneous Test Crossmatch 09/10/18 09/10/18 09/10/18 04:39 05:06 11:17 WBC RBC Hgb Hct RDW Plt Count Lymph % (Auto) [place] % (Auto) Lymph # [place] # Seg Neutrophils % Seg Neuts % (Manual) Lymphocytes % (Manual) Nucleated RBC % Seg Neutrophils # Seg Neutrophils # Man Lymphocytes # (Manual) D-Dimer POC ABG pH POC ABG pCO2 51.4 H POC ABG pO2 VBG pH Sodium Potassium Chloride Carbon Dioxide BUN Creatinine Glucose POC Glucose 185 H 159 H Hemoglobin A1c Lactic Acid Calcium Phosphorus Magnesium Iron TIBC AST ALT Troponin T C-Reactive Protein Total Protein Albumin Triglycerides LDL Cholesterol Direct HDL Cholesterol Urine WBC (Auto) Vancomycin Trough Salicylates Acetaminophen % CD3 Cells % CD19 Cells Absolute CD19 Count Miscellaneous Test Crossmatch Chest x-ray: image reviewed Allied health notes reviewed: RT (Wean down FIO2 to 60% then start weaning PEEP)
--- NOTE | 2018-09-10 16:25 | Hem/Onc Progress Note ---
Assessment and Plan 1. Bilateral posterior tibial and peroneal vein deep venous thrombosis, left leg edema. 2. Thrombocytopenia. The patient was on heparin-based treatment. Now it is fondaparinux. 3. Anemia. At admission, hemoglobin was normal. The patient received blood transfusion. deficiency workup. There may be a bleeding component. 4. Pulmonary embolism study is negative. 5. Camryn infection. 6. Chronic obstructive pulmonary disease. 7. Thrombocytopenia may be medication related. Heparin antibodies has been ordered. ? micafungin 8. History of renal failure. Nephrology following. 9. Maxillary sinusitis. 10. Respiratory failure, on ventilator. 11. History of cardiomyopathy. 12. We will follow the trend of platelets. 13. The patient has Dodge catheter. 14. Encephalopathy. 15. Because of anemia - low plt, there is a question if inferior vena cava filter is better to prevent more pulmonary complications. 16. I will discuss with other team members. 09/08 IVC filter was discussed as pt has anemia pt looks at you 09/09 d/w - pt SOB - d/w them reg DVT - anemia - IVC filter plt normalized Ferritin - b12 - folate normal - iron low - will follow trache eval ongoing 09/10 more awake - moves leg to command IV iron trial plt was low - now normal - Patient Problems (1) Thrombocytopenia Current Visit: Yes Status: Acute (2) DVT (deep venous thrombosis) Current Visit: Yes Status: Acute (3) Anemia Current Visit: Yes Status: Acute Subjective Date of service: 09/10/18 Principal diagnosis: anemia - DVT Interval history: more awake - follows commands - moves leg family + Objective - Constitutional Vitals: Last Vital Signs Temp 99.3 F 09/10/18 11:26 Pulse 79 09/10/18 16:00 Resp 27 H 09/10/18 16:00 BP 145/65 09/10/18 16:00 Pulse Ox 96 09/10/18 16:00 Pain Intensity (0-10): denies any pain General appearance: mild distress (on vent) Performance status: 4-completely disabled - EENT Eyes: EOM intact ENT: hearing intact, other (intubated) Lymph node exam: negative cervical - Neck Neck: normal ROM - Respiratory Respiratory effort: Positive: normal Respiratory: bilateral: CTA - Cardiovascular Heart Sounds: Present: S1 & S2 Extremity abnormal: edema - Gastrointestinal General gastrointestinal: Present: soft, non-tender Rectal Exam: deferred - Genitourinary Female genitourinary: Present: deferred - Integumentary Integumentary: warm - Musculoskeletal Musculoskeletal: generalized weakness - Neurologic Neurologic: moves all extremities - Labs Lab Results: Laboratory Results - last 24 hr 09/10/18 09/10/18 09/10/18 04:20 04:20 04:39 WBC 8.2 RBC 2.49 L Hgb 7.7 L Hct 23.4 L MCV 94 MCH 31 MCHC 33 RDW 18.0 H Plt Count 164 Lymph % (Auto) 8.2 L Walsh % (Auto) 3.7 Eos % (Auto) 0.0 Baso % (Auto) 0.4 Lymph # 0.7 L Walsh # 0.3 Eos # 0.0 Baso # 0.0 Seg Neutrophils % 87.7 H Seg Neutrophils # 7.2 POC ABG pH 7.410 POC ABG pCO2 51.4 H POC ABG pO2 89 POC ABG HCO3 32.5 POC ABG Total CO2 34 POC ABG O2 Sat 97 POC ABG Base Excess 8 FiO2 100 Sodium 143 Potassium 3.9 Chloride 103.3 Carbon Dioxide 31 H Anion Gap 13 BUN 39 H Creatinine 0.7 Estimated GFR > 60 BUN/Creatinine Ratio 56 Glucose 183 H POC Glucose Calcium 8.8 Phosphorus 4.10 Magnesium 1.80 Total Bilirubin 0.30 AST 85 H ALT 58 H Alkaline Phosphatase 90 Total Protein 6.8 Albumin 2.5 L Albumin/Globulin Ratio 0.6 09/10/18 09/10/18 05:06 11:17 WBC RBC Hgb Hct MCV MCH MCHC RDW Plt Count Lymph % (Auto) Walsh % (Auto) Eos % (Auto) Baso % (Auto) Lymph # Walsh # Eos # Baso # Seg Neutrophils % Seg Neutrophils # POC ABG pH POC ABG pCO2 POC ABG pO2 POC ABG HCO3 POC ABG Total CO2 POC ABG O2 Sat POC ABG Base Excess FiO2 Sodium Potassium Chloride Carbon Dioxide Anion Gap BUN Creatinine Estimated GFR BUN/Creatinine Ratio Glucose POC Glucose 185 H 159 H Calcium Phosphorus Magnesium Total Bilirubin AST ALT Alkaline Phosphatase Total Protein Albumin Albumin/Globulin Ratio Medications & Allergies - Medications Allergies/Adverse Reactions: Allergies No Known Allergies Allergy (Unverified 08/15/18 16:49) Home Medications: Home Medications Medication Instructions Recorded Confirmed Last Taken Type Carvedilol 6.25 mg PO BID 08/15/18 08/15/18 Unknown History DULoxetine 60 mg PO QDAY 08/15/18 08/15/18 Unknown History Gabapentin 600 mg PO Q6HR PRN 08/15/18 08/15/18 Unknown History Methylphenidate 5 mg PO TID 08/15/18 08/15/18 Unknown History Morphabond ER 60 mg PO Q12HR 08/15/18 08/15/18 Unknown History Pravastatin Sodium 10 mg PO QDAY 08/15/18 08/15/18 Unknown History Tizanidine HCl 4 mg PO Q12HR 08/15/18 08/15/18 Unknown History oxyCODONE /ACETAMINOPHEN 7.5 - 325 mg PO Q8HR 08/15/18 08/15/18 Unknown History ALBUTEROL Inhaler(NF) 90 mcg IH TID 08/29/18 08/29/18 Unknown History Omeprazole-Bicarb 40-1,100 Cap 40 mg PO DAILY 08/29/18 08/29/18 Unknown History Active Medications: Generic Name Dose Route Start Last Admin Trade Name Freq PRN Reason Stop Dose Admin Acetaminophen 650 mg 08/15/18 22:12 09/10/18 08:40 Tylenol PO 650 mg Q4H PRN Administration Pain MILD(1-3)/Fever >100.5/MONDRAGON Albuterol 2.5 mg 08/17/18 17:00 Proventil IH Q3HRT PRN Shortness Of Breath Albuterol/Ipratropium 1 ampul 08/20/18 14:00 09/10/18 14:34 Duoneb *Not For Prn Use* IH 1 ampul Q6HRT LAMAR Administration Lipase/Protease/Amylase 1 each 09/02/18 10:40 Pancresam Elizabeth 10,500 Unit FEEDTUBE PRN PRN For Clogged Feeding Tube Arformoterol Tartrate 15 mcg 08/18/18 20:00 09/10/18 07:48 Brovana Nebu IH 15 mcg Q12HRT LAMAR Administration Budesonide 0.5 mg 08/18/18 20:00 09/10/18 07:48 Pulmicort IH 0.5 mg Q12HRT LAMAR Administration Carvedilol 3.125 mg 08/26/18 15:19 09/10/18 09:00 Coreg PO 3.125 mg BID LAMAR Administration Famotidine 20 mg 09/05/18 10:00 09/10/18 09:00 Pepcid PO 20 mg BID LAMAR Administration Fondaparinux 7.5 mg 09/07/18 10:00 09/10/18 09:00 Arixtra SUB-Q 7.5 mg DAILY LAMAR Administration Furosemide 40 mg 09/10/18 18:00 Lasix IV 09/11/18 18:01 0600,1800 LAMAR Hydralazine HCl 10 mg 08/19/18 13:59 09/10/18 08:42 Apresoline IV 10 mg Q3H PRN Administration Hydralazine HCl 25 mg 09/01/18 14:00 09/10/18 15:15 Apresoline PO 25 mg Q8HR LAMAR Administration Hydromorphone HCl 1 mg 09/06/18 10:38 09/10/18 09:01 Dilaudid IV 1 mg Q4H PRN Administration Pain , Severe (7-10) Hydromorphone HCl 2 mg 09/06/18 12:00 09/10/18 11:42 Dilaudid PO 2 mg Q6HR [facility] Administration Hydrophilic Ointment 1 applic 08/15/18 21:55 09/01/18 09:07 Vaseline Lip Therapy TP 1 applic Q2HR PRN Administration Dry Lips Fentanyl Citrate 2,000 mcg in 100 mls @ 4.765 mls/hr 09/02/18 11:00 09/10/18 12:15 Fentanyl Drip Premix IV 4 mcg/kg/hr TITR LAMAR 19.06 mls/hr Administration Protocol 1 MCG/KG/HR Insulin Human Lispro 0 unit 09/04/18 18:00 09/10/18 11:42 Humalog SUB-Q 2 unit Q6HR [facility] Administration Protocol Methylprednisolone Sodium Succinate 40 mg 09/09/18 14:00 09/10/18 15:15 Solu-Medrol IV 09/12/18 06:01 40 mg Q8HR LAMAR Administration Metoclopramide HCl 5 mg 08/15/18 22:50 Reglan IV Q6H PRN Nausea And Vomiting Midazolam HCl 1 mg 09/07/18 09:23 09/10/18 15:15 Versed IV 1 mg Q4H PRN Administration AGITATION Ondansetron HCl 4 mg 08/15/18 22:12 08/31/18 17:52 Zofran IV 4 mg Q8H PRN Administration Nausea And Vomiting Potassium Chloride 20 meq 09/10/18 10:00 09/10/18 09:00 Potassium Chloride FEEDTUBE 20 meq QDAY LAMAR Administration Quetiapine Fumarate 200 mg 09/04/18 15:00 09/10/18 09:00 Seroquel PO 200 mg BID LAMAR Administration Senna/Docusate Sodium 2 tab 09/06/18 11:00 09/10/18 09:00 Senokot S PO 2 tab BID LAMAR Administration Simple Syrup 15 ml 09/02/18 11:24 Simple Syrup FEEDTUBE PRN PRN Hypoglycemia Simple Syrup 30 ml 09/02/18 11:24 Simple Syrup FEEDTUBE PRN PRN Hypoglycemia Sodium Bicarbonate 325 mg 09/02/18 10:40 Sodium Bicarbonate FEEDTUBE PRN PRN For Clogged Feeding Tube Sodium Chloride 10 ml 08/15/18 22:12 09/07/18 22:25 Sodium Chloride Flush Syringe 10 Ml IV 10 ml PRN PRN Administration LINE FLUSH
[2018-09-10] MEDS ORDERED: FERRLECIT 125 MG in NACL 0.9% 100 ML IV ONE (17:00)
[2018-09-11] MEDS: DILAUDID PO SCH ×5 (00:27→23:58)
[2018-09-11] MEDS: HumaLOG SUB-Q SCH ×5 (00:28→23:58)
[2018-09-11 01:44] LABS: BUN/Creatinine Ratio 64; Blood Urea Nitrogen 45 mg/dL (7-17); Calcium 8.8 mg/dL (8.4-10.2); Hemolysis Index 5
[2018-09-11 01:45] LABS: Alanine Aminotransferase 68 units/L (7-56); Albumin 2.6 g/dL (3.9-5); BUN/Creatinine Ratio 63; Blood Urea Nitrogen 44 mg/dL (7-17); Hemolysis Index 4
[2018-09-11] MEDS: DUONEB *Not for PRN Use IH SCH ×4 (01:59→19:58)
[2018-09-11] MEDS: APRESOLINE PO SCH ×3 (05:50→21:51)
[2018-09-11] MEDS: SOLU-Medrol IV SCH ×3 (05:50→21:50)
[2018-09-11] MEDS: LASIX IV SCH ×2 (05:50→17:11)
[2018-09-11] MEDS: fentaNYL DRIP Premix 2,000 MCG/100 ML BAG IV SCH ×3 (07:36→20:30)
[2018-09-11] MEDS: DILAUDID IV PRN (07:36)
[2018-09-11] MEDS: PULMICORT IH SCH ×2 (08:03→19:58)
[2018-09-11] MEDS: BROVANA NEBU IH SCH ×2 (08:03→19:58)
[2018-09-11] MEDS: SENOKOT S PO SCH ×2 (09:01→21:51)
[2018-09-11] MEDS: PEPCID PO SCH ×2 (09:01→21:51)
[2018-09-11] MEDS: ARIXTRA SUB-Q SCH (09:02)
[2018-09-11] MEDS: POTASSIUM CHLORIDE FEEDTUBE SCH (09:02)
[2018-09-11] MEDS: COREG PO SCH ×2 (09:02→21:50)
[2018-09-11 09:28] LABS: Basophils % (Auto) 0.1 % (0.0-1.8); Hematocrit 24.6 % (30.3-42.9); Lymphocytes # (Auto) 0.8 K/mm3 (1.2-5.4); Lymphocytes % (Auto) 6.1 % (13.4-35.0); Mean Corpuscular HGB Conc 33 % (30-34); Mean Corpuscular Volume 94 fl (79-97); Monocytes # (Auto) 0.8 K/mm3 (0.0-0.8); Monocytes % (Auto) 6.1 % (0.0-7.3); Platelet Count 269 K/mm3 (140-440); Red Blood Count 2.61 M/mm3 (3.65-5.03); Red Cell Distribution Width 19.1 % (13.2-15.2)
--- NOTE | 2018-09-11 11:03 | Progress Note ---
Assessment and Plan Assessment and plan: 68-year-old female patient with history of COPD arthritis C-spine and lumbar spine surgery. Chronic pain syndrome who was found unconscious in her feces and vomitus, patients family was available in [place] for a golf tournament patient was brought to the emergency room noted to be severely hy poxic and tachypneic, promptly intubated placed on ventilatory support and admitted to ICU patient was also noted to have possible aspiration pneumonia, completed treatment recommended by ID .currently monitoring of antibiotics .patient also had acute gastroenteritis acute kidney injury nonspecific elevation of troponins as well as septic shock evaluated by multiple specialties successfully weaned and extubated on 08/29/2018 however patient again went into acute respiratory failure requiring reintubation on 09/02/2018, Since then patient is vent dependent, may need trach and PEG and placement Assessment and plan; --Acute hypoxic hypercapnic respiratory failure; extubated 08/29/18 Re Intubated 09/02/18 vent dependent Patient may need trach and PEG,wean as tolerated and extubate --Status post bronchoscopy, BAL negative nebulizers, pulmonaryl following --Thrombocytopenia: Platelet count is Stable Lovenox changed to Arixtra --Anemia: s/p transfusion[3 PRBC] hemoglobin 8.0 Stool for occult blood x 2 negative --Febrile illness; resolved --Hypomagnesemia; Hypernatremia; resolved, --Gonzalez lower extremity DVT; anticoagulation with Lovenox CTA chest negative for PE --Sepsis; aspiration pneumonia ;s/p micafungin, meropenem and Vanco per ID Monitor off antibiotics --Hypertension; continue current antihypertensives --Severe malnutrition/hypoalbuminemia; Dietitian following --Acute kidney injury; probably secondary to ATN, Resolved, --Acute systolic congestive heart failure; EF 25-30%, Cardio following --Elevated Transaminases; resolved --DVT prophylaxis; on full dose Lovenox Consults and recommendations noted and appreciated Plan of care reviewed with the patient's nurse The high probability of a clinically significant, sudden or life threatening deterioration of the [respiratory, cardiology, ID, renal and metabolic] system(s) required my full and direct attention, intervention and personal management. The aggregate critical care time was [32] minutes. This time is in addition to time spent performing reported procedures but includes the following: [x] Data Review and interpretation [x] Patient assessment and monitoring of vital signs [x] Documentation [x] Medication orders and management Plan of care is reviewed with the patient's son at the bedside as well as patient's nurse History Interval history: Patient seen and examined medical records reviewed Patient remains intubated on ventilator support Alert and awake not in acute distress Vital signs noted Patient's is at the bedside Hospitalist Physical - Constitutional Vitals: Temp Pulse Resp BP Pulse Ox 99.2 F 82 25 H 93/44 95 09/11/18 08:00 09/11/18 10:28 09/11/18 10:00 09/11/18 10:28 09/11/18 10:28 General appearance: Present: no acute distress, well-nourished, obese, other (on vent) - EENT Eyes: Present: PERRL, EOM intact - Neck Neck: Present: supple, normal ROM - Respiratory Respiratory effort: normal Respiratory: bilateral: diminished, rhonchi, negative: rales, wheezing - Cardiovascular Rhythm: regular Heart Sounds: Present: S1 & S2 - Extremities Extremities: no ischemia, No edema - Abdominal General gastrointestinal: soft, non-tender, non-distended, normal bowel sounds - Integumentary Integumentary: Present: clear, warm - Psychiatric Psychiatric: cooperative, other (on vent) - Neurologic Neurologic: other (intubated on vent) Results - Labs CBC & Chem 7: 09/11/18 09:00 09/11/18 01:10 Labs: Laboratory Last Values WBC 13.7 K/mm3 (4.5-11.0) H 09/11/18 09:00 RBC 2.61 M/mm3 (3.65-5.03) L 09/11/18 09:00 Hgb 8.0 gm/dl (10.1-14.3) L 09/11/18 09:00 Hct 24.6 % (30.3-42.9) L 09/11/18 09:00 MCV 94 fl (79-97) 09/11/18 09:00 MCH 31 pg (28-32) 09/11/18 09:00 MCHC 33 % (30-34) 09/11/18 09:00 RDW 19.1 % (13.2-15.2) H 09/11/18 09:00 Plt Count 269 K/mm3 (140-440) 09/11/18 09:00 Lymph % (Auto) 6.1 % (13.4-35.0) L 09/11/18 09:00 [place] % (Auto) 6.1 % (0.0-7.3) 09/11/18 09:00 Eos % (Auto) 0.0 % (0.0-4.3) 09/11/18 09:00 Baso % (Auto) 0.1 % (0.0-1.8) 09/11/18 09:00 Lymph # 0.8 K/mm3 (1.2-5.4) L 09/11/18 09:00 [place] # 0.8 K/mm3 (0.0-0.8) 09/11/18 09:00 Eos # 0.0 K/mm3 (0.0-0.4) 09/11/18 09:00 Baso # 0.0 K/mm3 (0.0-0.1) 09/11/18 09:00 Add Manual Diff Complete 09/07/18 05:40 Total Counted 100 09/07/18 05:40 Seg Neutrophils % 87.7 % (40.0-70.0) H 09/11/18 09:00 Seg Neuts % (Manual) 80.0 % (40.0-70.0) H 09/07/18 05:40 Band Neutrophils % 0 % 09/07/18 05:40 Lymphocytes % (Manual) 15.0 % (13.4-35.0) 09/07/18 05:40 Reactive Lymphs % (Man) 0 % 09/07/18 05:40 Monocytes % (Manual) 2.0 % (0.0-7.3) 09/07/18 05:40 Eosinophils % (Manual) 0 % (0.0-4.3) 09/07/18 05:40 Basophils % (Manual) 0 % (0.0-1.8) 09/07/18 05:40 Metamyelocytes % 2.0 % 09/07/18 05:40 Myelocytes % 1.0 % 09/07/18 05:40 Promyelocytes % 0 % 09/07/18 05:40 Blast Cells % 0 % 09/07/18 05:40 Nucleated RBC % 1.0 % (0.0-0.9) H 09/07/18 05:40 Seg Neutrophils # 12.0 K/mm3 (1.8-7.7) H 09/11/18 09:00 Seg Neutrophils # Man 4.3 K/mm3 (1.8-7.7) 09/07/18 05:40 Band Neutrophils # 0.0 K/mm3 09/07/18 05:40 Abs Lymphs (Manual) 3262 cells/uL (850-3900) 08/19/18 14:32 Lymphocytes # (Manual) 0.8 K/mm3 (1.2-5.4) L 09/07/18 05:40 Abs React Lymphs (Man) 0.0 K/mm3 09/07/18 05:40 Monocytes # (Manual) 0.1 K/mm3 (0.0-0.8) 09/07/18 05:40 Eosinophils # (Manual) 0.0 K/mm3 (0.0-0.4) 09/07/18 05:40 Basophils # (Manual) 0.0 K/mm3 (0.0-0.1) 09/07/18 05:40 Metamyelocytes # 0.1 K/mm3 09/07/18 05:40 Myelocytes # 0.1 K/mm3 09/07/18 05:40 Promyelocytes # 0.0 K/mm3 09/07/18 05:40 Blast Cells # 0.0 K/mm3 09/07/18 05:40 WBC Morphology Not Reportable 09/07/18 05:40 Hypersegmented Neuts Not Reportable 09/07/18 05:40 Hyposegmented Neuts Not Reportable 09/07/18 05:40 Hypogranular Neuts Not Reportable 09/07/18 05:40 Smudge Cells Not Reportable 09/07/18 05:40 Toxic Granulation Not Reportable 09/07/18 05:40 Toxic Vacuolation Not Reportable 09/07/18 05:40 Dohle Bodies Not Reportable 09/07/18 05:40 Pelger-Huet Anomaly Not Reportable 09/07/18 05:40 Rosy Rods Not Reportable 09/07/18 05:40 Platelet Estimate Consistent w auto 09/07/18 05:40 Clumped Platelets Not Reportable 09/07/18 05:40 Plt Clumps, EDTA Not Reportable 09/07/18 05:40 Large Platelets Rare 09/07/18 05:40 Giant Platelets Not Reportable 09/07/18 05:40 Platelet Satelliting Not Reportable 09/07/18 05:40 Plt Morphology Comment Not Reportable 09/07/18 05:40 RBC Morphology Not Reportable 09/07/18 05:40 Dimorphic RBCs Not Reportable 09/07/18 05:40 Polychromasia Not Reportable 09/07/18 05:40 Hypochromasia Rare 09/07/18 05:40 Poikilocytosis Not Reportable 09/07/18 05:40 Anisocytosis Few 09/07/18 05:40 Microcytosis Not Reportable 09/07/18 05:40 Macrocytosis Not Reportable 09/07/18 05:40 Spherocytes Not Reportable 09/07/18 05:40 Pappenheimer Bodies Not Reportable 09/07/18 05:40 Sickle Cells Not Reportable 09/07/18 05:40 Target Cells Not Reportable 09/07/18 05:40 Tear Drop Cells Not Reportable 09/07/18 05:40 Ovalocytes Not Reportable 09/07/18 05:40 Helmet Cells Not Reportable 09/07/18 05:40 Hernandez-Assaria Bodies Not Reportable 09/07/18 05:40 [place] Rings Not Reportable 09/07/18 05:40 Fisher Cells Not Reportable 09/07/18 05:40 Bite Cells Not Reportable 09/07/18 05:40 Crenated Cell Not Reportable 09/07/18 05:40 Elliptocytes Not Reportable 09/07/18 05:40 Acanthocytes (Spur) Not Reportable 09/07/18 05:40 Rouleaux Not Reportable 09/07/18 05:40 Hemoglobin C Crystals Not Reportable 09/07/18 05:40 Schistocytes Not Reportable 09/07/18 05:40 Malaria parasites Not Reportable 09/07/18 05:40 Ceasar Bodies Not Reportable 09/07/18 05:40 Hem Pathologist Commnt No 09/07/18 05:40 D-Dimer 2768.33 ng/mlDDU (0-234) H 08/15/18 18:31 Heparin Anti-Xa, Unfract Negative (Negative) 08/22/18 15:29 POC ABG pH 7.410 (7.35-7.45) 09/10/18 04:39 POC ABG pCO2 51.4 (35-45) H 09/10/18 04:39 POC ABG pO2 89 (80-105) 09/10/18 04:39 POC ABG HCO3 32.5 (22-26 mml/L) 09/10/18 04:39 POC ABG Total CO2 34 (23-27mmol/L) 09/10/18 04:39 POC ABG O2 Sat 97 09/10/18 04:39 POC ABG Base Excess 8 ((-2) - (+3)mmol/L) 09/10/18 04:39 VBG pH 7.187 (7.320-7.420) L* 08/15/18 18:19 FiO2 100 % 09/10/18 04:39 Sodium 144 mmol/L (137-145) 09/11/18 01:10 Potassium 3.6 mmol/L (3.6-5.0) 09/11/18 01:10 Chloride 101.9 mmol/L (98-107) 09/11/18 01:10 Carbon Dioxide 33 mmol/L (22-30) H 09/11/18 01:10 Anion Gap 13 mmol/L 09/11/18 01:10 BUN 45 mg/dL (7-17) H 09/11/18 01:10 Creatinine 0.7 mg/dL (0.7-1.2) 09/11/18 01:10 Estimated GFR > 60 ml/min 09/11/18 01:10 BUN/Creatinine Ratio 64 % 09/11/18 01:10 Glucose 147 mg/dL (65-100) H 09/11/18 01:10 POC Glucose 180 (70-105) H 09/11/18 06:03 Hemoglobin A1c 6.4 % (4-6) H 08/15/18 23:09 Lactic Acid 1.20 mmol/L (0.7-2.0) 08/22/18 15:29 Calcium 8.8 mg/dL (8.4-10.2) 09/11/18 01:10 Phosphorus 3.60 mg/dL (2.5-4.5) 09/11/18 01:10 Magnesium 1.90 mg/dL (1.7-2.3) 09/11/18 01:10 Iron 26 ug/dL (37-170) L 09/07/18 05:40 TIBC 150 mcg/dL (250-450) L 09/07/18 05:40 Ferritin 375.0 ng/mL (13.0-400.0) 09/07/18 05:40 Total Bilirubin 0.30 mg/dL (0.1-1.2) 09/11/18 01:10 AST 86 units/L (5-40) H 09/11/18 01:10 ALT 68 units/L (7-56) H 09/11/18 01:10 Alkaline Phosphatase 82 units/L (35-129) 09/11/18 01:10 Troponin T 0.317 ng/mL (0.00-0.029) H* D 08/18/18 13:39 C-Reactive Protein 5.00 mg/dL (0.00-1.30) H 08/25/18 05:20 Total Protein 6.5 g/dL (6.3-8.2) 09/11/18 01:10 Albumin 2.6 g/dL (3.9-5) L 09/11/18 01:10 Albumin/Globulin Ratio 0.7 % 09/11/18 01:10 Triglycerides 197 mg/dL (2-149) H 08/22/18 06:45 Cholesterol 87 mg/dL (50-199) 08/15/18 18:31 LDL Cholesterol Direct 4 mg/dL (50-130) L 08/15/18 18:31 HDL Cholesterol 10 mg/dL (40-59) L 08/15/18 18:31 Cholesterol/HDL Ratio 8.70 % 08/15/18 18:31 Serotonin Release Assay See scanned results 08/22/18 15:29 Vitamin B12 388.4 pg/mL (211-911) 09/07/18 05:40 Folate 19.01 ng/mL (7.3-26.0) 09/07/18 05:40 Total Cortisol 21.4 mcg/dL () 08/25/18 08:52 Urine Color Rosemarie (Yellow) 08/15/18 19:15 Urine Turbidity Cloudy (Clear) 08/15/18 19:15 Urine pH 5.0 (5.0-7.0) 08/15/18 19:15 Ur Specific [place] 1.025 (1.003-1.030) 08/15/18 19:15 Urine Protein 30 mg/dl mg/dL (Negative) 08/15/18 19:15 Urine Glucose (UA) Neg mg/dL (Negative) 08/15/18 19:15 Urine Ketones Neg mg/dL (Negative) 08/15/18 19:15 Urine Blood Mod (Negative) 08/15/18 19:15 Urine Nitrite Neg (Negative) 08/15/18 19:15 Urine Bilirubin Neg (Negative) 08/15/18 19:15 Urine Urobilinogen 2.0 mg/dL (<2.0) 08/15/18 19:15 Ur Leukocyte Esterase Mod (Negative) 08/15/18 19:15 Urine WBC (Auto) 17.0 /HPF (0.0-6.0) H 08/15/18 19:15 Urine RBC (Auto) 5.0 /HPF (0.0-6.0) 08/15/18 19:15 Urine WBC Clumps 2+ /HPF 08/15/18 19:15 Amorphous Crystals 1+ 08/15/18 19:15 Hyaline Casts 54 /LPF 08/15/18 19:15 Granular Casts 14 /LPF 08/15/18 19:15 Urine Mucus Few /HPF 08/15/18 19:15 Vancomycin Trough 28.6 ug/mL (5.0-20.0) H 09/06/18 14:40 Salicylates < 0.3 mg/dL (2.8-20.0) L 08/15/18 19:14 Urine Opiates Screen Presumptive positive 08/15/18 19:15 Urine Methadone Screen Presumptive negative 08/15/18 19:15 Acetaminophen < 5.0 ug/mL (10.0-30.0) L 08/15/18 19:14 Ur Barbiturates Screen Presumptive negative 08/15/18 19:15 Ur Phencyclidine Scrn Presumptive negative 08/15/18 19:15 Ur Amphetamines Screen Presumptive negative 08/15/18 19:15 U Benzodiazepines Scrn Presumptive negative 08/15/18 19:15 Urine Cocaine Screen Presumptive negative 08/15/18 19:15 U Marijuana (THC) Screen Presumptive negative 08/15/18 19:15 Drugs of Abuse Note Disclamer 08/15/18 19:15 Heparin-induced Plt Ab Negative (Negative) 08/22/18 15:29 UF Heparin High Dose 0 % Release 08/22/18 15:29 NAZIA UFH Low Dose 0.1 0 % Release 08/22/18 15:29 NAZIA UFH Low Dose 0.5 0 % Release 08/22/18 15:29 Lymph Enumerat CD4/CD8 1.98 (0.86-5.00) 08/19/18 14:32 % CD3 Cells 44 % (57-85) L 08/19/18 14:32 Absolute CD3 Count 1451 cells/uL (840-3060) 08/19/18 14:32 % CD4 Cells 30 % (30-61) 08/19/18 14:32 Absolute CD4 Count 1004 cells/uL (490-1740) 08/19/18 14:32 % CD8 Cells 15 % (12-42) 08/19/18 14:32 Absolute CD8 Count 508 cells/uL (180-1170) 08/19/18 14:32 % CD19 Cells 41 % (6-29) H 08/19/18 14:32 Absolute CD19 Count 1290 cells/uL (110-660) H 08/19/18 14:32 C. difficile Toxin A&B Negative (Negative) 08/19/18 14:00 HIV 1&2 Antibody Rapid Non react (Non React) 08/18/18 13:39 HIV P24 Antigen Non react (Non React) 08/18/18 13:39 Miscellaneous Test Flexitest 1 08/30/18 10:00 Blood Type O POSITIVE 09/03/18 10:24 Antibody Screen Negative 09/03/18 10:24 Crossmatch See Detail 09/03/18 10:24 Active Medications - Current Medications Current Medications: Generic Name Dose Route Start Last Admin Trade Name Freq PRN Reason Stop Dose Admin Acetaminophen 650 mg 08/15/18 22:12 09/10/18 08:40 Tylenol PO 650 mg Q4H PRN Administration Pain MILD(1-3)/Fever >100.5/MONDRAGON Albuterol 2.5 mg 08/17/18 17:00 Proventil IH Q3HRT PRN Shortness Of Breath Albuterol/Ipratropium 1 ampul 08/20/18 14:00 09/11/18 08:02 Duoneb *Not For Prn Use* IH 1 ampul Q6HRT LAMAR Administration Lipase/Protease/Amylase 1 each 09/02/18 10:40 Pancresam Elizabeth 10,500 Unit FEEDTUBE PRN PRN For Clogged Feeding Tube Arformoterol Tartrate 15 mcg 08/18/18 20:00 09/11/18 08:03 Brovana Nebu IH Not Given Q12HRT LAMAR Budesonide 0.5 mg 08/18/18 20:00 09/11/18 08:03 Pulmicort IH 0.5 mg Q12HRT LAMAR Administration Carvedilol 3.125 mg 08/26/18 15:19 09/11/18 09:02 Coreg PO 3.125 mg BID LAMAR Administration Famotidine 20 mg 09/05/18 10:00 09/11/18 09:01 Pepcid PO 20 mg BID LAMAR Administration Fondaparinux 7.5 mg 09/07/18 10:00 09/11/18 09:02 Arixtra SUB-Q 7.5 mg DAILY LAMAR Administration Furosemide 40 mg 09/10/18 18:00 09/11/18 05:50 Lasix IV 09/11/18 18:01 40 mg 0600,1800 LAMAR Administration Hydralazine HCl 10 mg 08/19/18 13:59 09/10/18 19:32 Apresoline IV 10 mg Q3H PRN Administration Hydralazine HCl 25 mg 09/01/18 14:00 09/11/18 05:50 Apresoline PO 25 mg Q8HR LAMAR Administration Hydromorphone HCl 1 mg 09/06/18 10:38 09/11/18 07:36 Dilaudid IV 1 mg Q4H PRN Administration Pain , Severe (7-10) Hydromorphone HCl 2 mg 09/06/18 12:00 09/11/18 05:50 Dilaudid PO 2 mg Q6HR [facility] Administration Hydrophilic Ointment 1 applic 08/15/18 21:55 09/01/18 09:07 Vaseline Lip Therapy TP 1 applic Q2HR PRN Administration Dry Lips Fentanyl Citrate 2,000 mcg in 100 mls @ 4.765 mls/hr 09/02/18 11:00 09/11/18 07:36 Fentanyl Drip Premix IV 4 mcg/kg/hr TITR LAMAR 19.06 mls/hr Administration Protocol 1 MCG/KG/HR Insulin Human Lispro 0 unit 09/04/18 18:00 09/11/18 06:01 Humalog SUB-Q 2 unit Q6HR LAMAR Administration Protocol Methylprednisolone Sodium Succinate 40 mg 09/09/18 14:00 09/11/18 05:50 Solu-Medrol IV 09/12/18 06:01 40 mg Q8HR LAMAR Administration Metoclopramide HCl 5 mg 08/15/18 22:50 Reglan IV Q6H PRN Nausea And Vomiting Midazolam HCl 1 mg 09/07/18 09:23 09/10/18 15:15 Versed IV 1 mg Q4H PRN Administration AGITATION Ondansetron HCl 4 mg 08/15/18 22:12 08/31/18 17:52 Zofran IV 4 mg Q8H PRN Administration Nausea And Vomiting Potassium Chloride 20 meq 09/10/18 10:00 09/11/18 09:02 Potassium Chloride FEEDTUBE 20 meq QDAY LAMAR Administration Quetiapine Fumarate 200 mg 09/04/18 15:00 09/11/18 09:01 Seroquel PO 200 mg BID LAMAR Administration Senna/Docusate Sodium 2 tab 09/06/18 11:00 09/11/18 09:01 Senokot S PO 2 tab BID LAMAR Administration Simple Syrup 15 ml 09/02/18 11:24 Simple Syrup FEEDTUBE PRN PRN Hypoglycemia Simple Syrup 30 ml 09/02/18 11:24 Simple Syrup FEEDTUBE PRN PRN Hypoglycemia Sodium Bicarbonate 325 mg 09/02/18 10:40 Sodium Bicarbonate FEEDTUBE PRN PRN For Clogged Feeding Tube Sodium Chloride 10 ml 08/15/18 22:12 09/07/18 22:25 Sodium Chloride Flush Syringe 10 Ml IV 10 ml PRN PRN Administration LINE FLUSH Nutrition/Malnutrition Assess - Dietary Evaluation Nutrition/Malnutrition Findings: Nutrition Notes Start: 08/17/18 13:57 Freq: Status: Active Protocol: Document 09/06/18 11:37 MADAY (Rec: 09/06/18 11:45 MADAY [email or web address]) Nutrition Notes Initial or Follow up Reassessment Current Diagnosis Acute Kidney Injury,COPD, Diabetes,Sepsis,Hypertension, Respiratory Failure, Hyperlipidemia Other Pertinent Diagnosis AMS, hypokalemia, NSTEMI, encephalopathy, pneu, hypernatermia, shock liver Current Diet TF - Vital High Protein at 55ml/hr Labs/Tests Reviewed (Na lab WNL) Pertinent Medications Morphine, Senokot BID Height 5 ft 7 in Weight 100.2 kg Ary Body Weight (kg) 61.36 BMI 34.6 Weight change and time frame Current wt obtained from bed scale Subjective/Other Information Pt tolerating TF at goal rate. Per RN, pt receiving 200ml water flushes q4h. Pt remains on vent support and has rectal tube. Pt also on 2 abx . Spoke with RN about necessity of scheduled senokot . RN says senokot ordered sec to morphine. Percent of energy/protein needs met: 70% energy 94% pro #1 Nutrition Diagnosis Inadequate oral intake Diagnosis Progress(for reassessment Continues documentation) Is patient on ventilator? Yes Is Patient Ambulatory and/or Out of Bed No [facility] [phone] Calculation Used for Recommendations 65-70% energy needs Additional Notes Pro needs 2g/kg IBW: 123g/day Fluid needs 1ml/kcal Nutrition Intervention Nutrition Support: Continue Vital High Protein at 55ml/hr. Provide 50ml water flush q4h. Kcal 1,320 Protein (gm) 116 Fluid (mL) 1,103 Goal #1 TF tolerance Goal #2 TF to meet 65-70% energy and 80-100% pro needs Follow-Up By: 09/13/18 Additional Comments F/U: stable TF, vent status, wt, decrease water flush to 50q4h if Na lab remains WNL
[2018-09-11] MEDS: VERSED IV PRN ×2 (11:23→16:05)
--- NOTE | 2018-09-11 12:09 | Progress Note ---
Assessment and Plan Acute hypoxic-hypercapnic respiratory failure on MVS Acute COPD exacerbation DVT NSTEMI Acute encephalopathy (toxic-metabolic) Thrombocytopenia Hypokalemia Acute kidney injury h/o Chronic Narcotic Dependence Aspiration pneumonia/CAP Hypokalemia GNR in tracheal aspirate Hypernatremia (discussed utility of early tracheostomy with her ) - for tracheostomy once more stable - continue diuresis while monitoring hemodynamics - continue prn analgesia - Continue to Wean supplemental oxygen to keep O2 sats > 88-90% - anti-infective's adjusted by ID team - continue accuchecks q6h and target glycemic control for BG 140 - 180 mg/dl acutely - azotemia per nephrology team - continue seroquel and target sedatives for RASS 0 to -1 - CD4 count WNL - HIT assay negative - complete and adjust antifungal therapy per ID - nephrology input appreciated - cardiology consulted for CHF - continue brovana & pulmicort re: COPD - continue lung protective strategies - Daily ABGs/CXR for now - VAP bundle addressed - continue to avoid benzodiazepines, use high dose fentanyl for agitation and analgesia - Sedation target for RASS 0 to -1 - Stress ulcer prophylaxis - VTE prophylaxis - enteral Nutrition as tolerated - VAP bundle addressed - Continue bronchodilators with pulmonary hygiene per RT - Maintenance of sleep -wake cycle - Mobility protocol for pressure ulcer prophylaxis as tolerated by hemodynamics - Influenza and pneumonia vaccination per protocol ..care plan discussed at length with family at the bedside ... re-evaluate in am & prn PROGNOSIS :FAIR CONDITION: CRITICAL CODE STATUS: FULL CODE The high probability of a clinically significant, sudden or life-threatening deterioration of the [respiratory, neurology, renal] system(s) required my full and direct attention, intervention and personal management. The aggregate critical care time was [32] minutes without overlap. Time includes spent on; [x] Data Review and interpretation [x] Patient assessment and monitoring of vital signs [x] Documentation [x] Medication orders and management Subjective Date of service: 09/11/18 Principal diagnosis: Acute hypoxemic hypercapnic Resp failure; AE-COPD; Acute kidney injury Interval history: Patient is seen today for: Acute hypoxemic - hypercapnic respiratory failure on MVS; Acute COPD exacerbation; Acute encephalopathy (toxic-metabolic); Hypokalemia; Acute kidney injury Seen and examined at bedside; 24hour events reviewed; nursing and respiratory care staff consulted; no adverse overnight events reported to me; remains on MVS; decent diuresis but still on 60% FiO2 and peep of 12; denies acute uncontrolled pain; is visiting; no N/V/F/C Objective Vital Signs - 12hr 09/11/18 09/11/18 09/11/18 01:00 02:00 03:00 Temperature Pulse Rate 95 H 99 H 103 H Pulse Rate [ 86 Anterior Bilateral Throughout] Pulse Rate [ Apical] Respiratory 25 H 29 H 32 H Rate Respiratory 26 H Rate [Anterior Bilateral Throughout] Blood Pressure 137/64 154/67 147/73 O2 Sat by Pulse 97 96 95 Oximetry 09/11/18 09/11/18 09/11/18 04:00 05:00 05:50 Temperature 99.9 F H Pulse Rate 107 H 101 H 100 H Pulse Rate [ Anterior Bilateral Throughout] Pulse Rate [ 91 H Apical] Respiratory 32 H 33 H Rate Respiratory Rate [Anterior Bilateral Throughout] Blood Pressure 151/72 156/70 156/70 O2 Sat by Pulse 95 96 Oximetry 09/11/18 09/11/18 09/11/18 06:00 06:46 07:00 Temperature Pulse Rate 97 H 99 H 100 H Pulse Rate [ Anterior Bilateral Throughout] Pulse Rate [ Apical] Respiratory 31 H 20 Rate Respiratory Rate [Anterior Bilateral Throughout] Blood Pressure 149/71 149/71 156/77 O2 Sat by Pulse 95 98 95 Oximetry 09/11/18 09/11/18 09/11/18 07:55 08:00 08:01 Temperature 99.2 F Pulse Rate 93 H 89 Pulse Rate [ Anterior Bilateral Throughout] Pulse Rate [ 95 H Apical] Respiratory 32 H 31 H Rate Respiratory Rate [Anterior Bilateral Throughout] Blood Pressure 144/65 144/65 O2 Sat by Pulse 95 95 97 Oximetry 09/11/18 09/11/18 09/11/18 08:03 08:25 08:49 Temperature Pulse Rate 99 H Pulse Rate [ 94 H 94 H Anterior Bilateral Throughout] Pulse Rate [ Apical] Respiratory Rate Respiratory 31 H 30 H Rate [Anterior Bilateral Throughout] Blood Pressure 144/65 O2 Sat by Pulse 96 Oximetry 09/11/18 09/11/18 09/11/18 09:00 09:02 09:30 Temperature Pulse Rate 93 H 97 H 100 H Pulse Rate [ Anterior Bilateral Throughout] Pulse Rate [ Apical] Respiratory 30 H 28 H Rate Respiratory Rate [Anterior Bilateral Throughout] Blood Pressure 145/68 145/68 145/68 O2 Sat by Pulse 92 93 Oximetry 09/11/18 09/11/18 09/11/18 09:46 10:00 10:16 Temperature Pulse Rate 88 89 83 Pulse Rate [ Anterior Bilateral Throughout] Pulse Rate [ Apical] Respiratory 28 H 25 H 30 H Rate Respiratory Rate [Anterior Bilateral Throughout] Blood Pressure 145/68 145/68 145/68 O2 Sat by Pulse 92 91 94 Oximetry 09/11/18 09/11/18 09/11/18 10:28 10:30 10:46 Temperature Pulse Rate 82 81 81 Pulse Rate [ Anterior Bilateral Throughout] Pulse Rate [ Apical] Respiratory 30 H 30 H Rate Respiratory Rate [Anterior Bilateral Throughout] Blood Pressure 93/44 145/68 93/44 O2 Sat by Pulse 95 95 96 Oximetry 09/11/18 09/11/18 09/11/18 11:00 11:16 11:27 Temperature 98.2 F Pulse Rate 81 89 Pulse Rate [ Anterior Bilateral Throughout] Pulse Rate [ Apical] Respiratory 24 17 Rate Respiratory Rate [Anterior Bilateral Throughout] Blood Pressure 97/47 97/47 O2 Sat by Pulse 94 96 Oximetry 09/11/18 09/11/18 09/11/18 11:30 11:31 11:37 Temperature Pulse Rate 82 83 82 Pulse Rate [ Anterior Bilateral Throughout] Pulse Rate [ Apical] Respiratory 30 H Rate Respiratory Rate [Anterior Bilateral Throughout] Blood Pressure 97/47 97/47 O2 Sat by Pulse 96 96 Oximetry Constitutional: appears uncomfortable, other (elderly looking CF, normocephalic and atraumatic) Eyes: non-icteric ENT: oropharynx moist, other (ETT 23 cm MARTHA) Neck: supple, no lymphadenopathy, no JVD, other (no thyromegaly) Effort: mildly labored Ascultation: Bilateral: diminished breath sounds, rales Percussion: Bilateral: not dull Cardiovascular: regular rate and rhythm Gastrointestinal: normoactive bowel sounds, soft, non-tender, non-distended Integumentary: normal Extremities: no cyanosis, no ischemia or petechiae, edema (Left lower extremity) Neurologic: non-focal exam (grossly), pupils equal and round, CN II-XII normal, motor strength normal and Psychiatric: other (unable to assess) CBC and BMP: 09/15/18 04:10 09/15/18 04:10 ABG, PT/INR, D-dimer: ABG POC ABG pH 7.498 (7.35-7.45) H 09/11/18 11:31 POC ABG pCO2 46.3 (35-45) H 09/11/18 11:31 POC ABG pO2 80 (80-105) 09/11/18 11:31 POC ABG HCO3 35.9 (22-26 mml/L) 09/11/18 11:31 POC ABG Total CO2 37 (23-27mmol/L) 09/11/18 11:31 POC ABG O2 Sat 97 09/11/18 11:31 PT/INR, D-dimer D-Dimer 2768.33 ng/mlDDU (0-234) H 08/15/18 18:31 Abnormal lab findings: Abnormal Labs 08/15/18 08/15/18 08/15/18 17:52 17:52 17:52 WBC 12.7 H RBC 3.25 L Hgb Hct RDW Plt Count Lymph % (Auto) [place] % (Auto) Lymph # [place] # Seg Neutrophils % Seg Neuts % (Manual) Lymphocytes % (Manual) 6.0 L Nucleated RBC % Seg Neutrophils # Seg Neutrophils # Man Lymphocytes # (Manual) 0.8 L D-Dimer POC ABG pH POC ABG pCO2 POC ABG pO2 VBG pH Sodium Potassium 3.4 L Chloride 94.6 L Carbon Dioxide 17 L BUN 67 H Creatinine 3.5 H Glucose 131 H POC Glucose Hemoglobin A1c Lactic Acid 5.20 H* Calcium 7.6 L Phosphorus Magnesium Iron TIBC AST 887 H ALT 316 H Troponin T C-Reactive Protein Total Protein Albumin 3.1 L Triglycerides LDL Cholesterol Direct HDL Cholesterol Urine WBC (Auto) Vancomycin Trough Salicylates Acetaminophen % CD3 Cells % CD19 Cells Absolute CD19 Count Miscellaneous Test Crossmatch 08/15/18 08/15/18 08/15/18 18:11 18:19 18:31 WBC RBC Hgb Hct RDW Plt Count Lymph % (Auto) [place] % (Auto) Lymph # [place] # Seg Neutrophils % Seg Neuts % (Manual) Lymphocytes % (Manual) Nucleated RBC % Seg Neutrophils # Seg Neutrophils # Man Lymphocytes # (Manual) D-Dimer 2768.33 H POC ABG pH 7.173 L POC ABG pCO2 47.8 H POC ABG pO2 177 H VBG pH 7.187 L* Sodium Potassium Chloride Carbon Dioxide BUN Creatinine Glucose POC Glucose Hemoglobin A1c Lactic Acid Calcium Phosphorus Magnesium Iron TIBC AST ALT Troponin T C-Reactive Protein Total Protein Albumin Triglycerides LDL Cholesterol Direct HDL Cholesterol Urine WBC (Auto) Vancomycin Trough Salicylates Acetaminophen % CD3 Cells % CD19 Cells Absolute CD19 Count Miscellaneous Test Crossmatch 08/15/18 08/15/18 08/15/18 18:31 19:14 19:14 WBC RBC Hgb Hct RDW Plt Count Lymph % (Auto) [place] % (Auto) Lymph # [place] # Seg Neutrophils % Seg Neuts % (Manual) Lymphocytes % (Manual) Nucleated RBC % Seg Neutrophils # Seg Neutrophils # Man Lymphocytes # (Manual) D-Dimer POC ABG pH POC ABG pCO2 POC ABG pO2 VBG pH Sodium Potassium Chloride Carbon Dioxide BUN Creatinine Glucose POC Glucose Hemoglobin A1c Lactic Acid 2.70 H* Calcium Phosphorus Magnesium Iron TIBC AST ALT Troponin T 0.454 H* C-Reactive Protein Total Protein Albumin Triglycerides 356 H LDL Cholesterol Direct 4 L HDL Cholesterol 10 L Urine WBC (Auto) Vancomycin Trough Salicylates < 0.3 L Acetaminophen % CD3 Cells % CD19 Cells Absolute CD19 Count Miscellaneous Test Crossmatch 08/15/18 08/15/18 08/15/18 19:14 19:15 23:09 WBC RBC Hgb Hct RDW Plt Count Lymph % (Auto) [place] % (Auto) Lymph # [place] # Seg Neutrophils % Seg Neuts % (Manual) Lymphocytes % (Manual) Nucleated RBC % Seg Neutrophils # Seg Neutrophils # Man Lymphocytes # (Manual) D-Dimer POC ABG pH POC ABG pCO2 POC ABG pO2 VBG pH Sodium Potassium Chloride Carbon Dioxide BUN Creatinine Glucose POC Glucose Hemoglobin A1c Lactic Acid 3.20 H* Calcium Phosphorus Magnesium Iron TIBC AST ALT Troponin T C-Reactive Protein Total Protein Albumin Triglycerides LDL Cholesterol Direct HDL Cholesterol Urine WBC (Auto) 17.0 H Vancomycin Trough Salicylates Acetaminophen < 5.0 L % CD3 Cells % CD19 Cells Absolute CD19 Count Miscellaneous Test Crossmatch 08/15/18 08/16/18 08/16/18 23:09 01:41 05:38 WBC RBC 3.07 L Hgb 9.8 L Hct 28.7 L RDW Plt Count Lymph % (Auto) [place] % (Auto) Lymph # [place] # Seg Neutrophils % Seg Neuts % (Manual) 84.0 H Lymphocytes % (Manual) 6.0 L Nucleated RBC % 4.0 H Seg Neutrophils # Seg Neutrophils # Man Lymphocytes # (Manual) 0.5 L D-Dimer POC ABG pH 7.323 L POC ABG pCO2 34.7 L POC ABG pO2 78 L VBG pH Sodium Potassium Chloride Carbon Dioxide BUN Creatinine Glucose POC Glucose Hemoglobin A1c 6.4 H Lactic Acid Calcium Phosphorus Magnesium Iron TIBC AST ALT Troponin T C-Reactive Protein Total Protein Albumin Triglycerides LDL Cholesterol Direct HDL Cholesterol Urine WBC (Auto) Vancomycin Trough Salicylates Acetaminophen % CD3 Cells % CD19 Cells Absolute CD19 Count Miscellaneous Test Crossmatch 08/16/18 08/16/18 08/17/18 05:38 22:43 03:42 WBC RBC Hgb Hct RDW Plt Count Lymph % (Auto) [place] % (Auto) Lymph # [place] # Seg Neutrophils % Seg Neuts % (Manual) Lymphocytes % (Manual) Nucleated RBC % Seg Neutrophils # Seg Neutrophils # Man Lymphocytes # (Manual) D-Dimer POC ABG pH POC ABG pCO2 POC ABG pO2 VBG pH Sodium Potassium 2.9 L* 3.1 L 2.9 L* Chloride 108.8 H 111.9 H Carbon Dioxide 17 L 19 L 21 L BUN 62 H 40 H 33 H Creatinine 2.0 H Glucose 139 H 145 H POC Glucose Hemoglobin A1c Lactic Acid Calcium 7.8 L 8.3 L Phosphorus 1.50 L Magnesium Iron TIBC AST 619 H ALT 353 H Troponin T C-Reactive Protein Total Protein 6.1 L Albumin 2.8 L Triglycerides LDL Cholesterol Direct HDL Cholesterol Urine WBC (Auto) Vancomycin Trough Salicylates Acetaminophen % CD3 Cells % CD19 Cells Absolute CD19 Count Miscellaneous Test Crossmatch 08/17/18 08/17/18 08/18/18 11:02 16:42 03:28 WBC RBC Hgb Hct RDW Plt Count Lymph % (Auto) [place] % (Auto) Lymph # [place] # Seg Neutrophils % Seg Neuts % (Manual) Lymphocytes % (Manual) Nucleated RBC % Seg Neutrophils # Seg Neutrophils # Man Lymphocytes # (Manual) D-Dimer POC ABG pH 7.483 H 7.499 H POC ABG pCO2 POC ABG pO2 VBG pH Sodium 147 H Potassium 3.2 L Chloride 115.8 H Carbon Dioxide BUN 23 H Creatinine Glucose 121 H POC Glucose Hemoglobin A1c Lactic Acid Calcium 8.1 L Phosphorus 2.30 L D Magnesium Iron TIBC AST ALT Troponin T C-Reactive Protein Total Protein Albumin Triglycerides LDL Cholesterol Direct HDL Cholesterol Urine WBC (Auto) Vancomycin Trough Salicylates Acetaminophen % CD3 Cells % CD19 Cells Absolute CD19 Count Miscellaneous Test Crossmatch 08/18/18 08/18/18 08/18/18 04:10 13:39 13:39 WBC RBC Hgb Hct RDW Plt Count Lymph % (Auto) [place] % (Auto) Lymph # [place] # Seg Neutrophils % Seg Neuts % (Manual) Lymphocytes % (Manual) Nucleated RBC % Seg Neutrophils # Seg Neutrophils # Man Lymphocytes # (Manual) D-Dimer POC ABG pH POC ABG pCO2 POC ABG pO2 VBG pH Sodium 147 H Potassium 3.3 L Chloride 111.9 H Carbon Dioxide BUN 21 H Creatinine Glucose 113 H POC Glucose Hemoglobin A1c Lactic Acid Calcium Phosphorus 1.50 L D Magnesium Iron TIBC AST ALT Troponin T 0.317 H* D C-Reactive Protein 10.70 H Total Protein Albumin Triglycerides LDL Cholesterol Direct HDL Cholesterol Urine WBC (Auto) Vancomycin Trough Salicylates Acetaminophen % CD3 Cells % CD19 Cells Absolute CD19 Count Miscellaneous Test Crossmatch 08/18/18 08/19/18 08/19/18 16:51 03:47 04:15 WBC RBC Hgb Hct RDW Plt Count Lymph % (Auto) [place] % (Auto) Lymph # [place] # Seg Neutrophils % Seg Neuts % (Manual) Lymphocytes % (Manual) Nucleated RBC % Seg Neutrophils # Seg Neutrophils # Man Lymphocytes # (Manual) D-Dimer POC ABG pH 7.454 H 7.482 H POC ABG pCO2 POC ABG pO2 65 L VBG pH Sodium 154 H Potassium 3.3 L Chloride 115.1 H Carbon Dioxide BUN 19 H Creatinine Glucose 117 H POC Glucose Hemoglobin A1c Lactic Acid Calcium 7.8 L Phosphorus Magnesium Iron TIBC AST ALT Troponin T C-Reactive Protein Total Protein Albumin Triglycerides LDL Cholesterol Direct HDL Cholesterol Urine WBC (Auto) Vancomycin Trough Salicylates Acetaminophen % CD3 Cells % CD19 Cells Absolute CD19 Count Miscellaneous Test Crossmatch 08/19/18 08/19/18 08/20/18 14:32 16:18 03:51 WBC RBC Hgb Hct RDW Plt Count Lymph % (Auto) [place] % (Auto) Lymph # [place] # Seg Neutrophils % Seg Neuts % (Manual) Lymphocytes % (Manual) Nucleated RBC % Seg Neutrophils # Seg Neutrophils # Man Lymphocytes # (Manual) D-Dimer POC ABG pH 7.483 H POC ABG pCO2 33.4 L POC ABG pO2 51 L 74 L VBG pH Sodium Potassium Chloride Carbon Dioxide BUN Creatinine Glucose POC Glucose Hemoglobin A1c Lactic Acid Calcium Phosphorus Magnesium Iron TIBC AST ALT Troponin T C-Reactive Protein Total Protein Albumin Triglycerides LDL Cholesterol Direct HDL Cholesterol Urine WBC (Auto) Vancomycin Trough Salicylates Acetaminophen % CD3 Cells 44 L % CD19 Cells 41 H Absolute CD19 Count 1290 H Miscellaneous Test Crossmatch 08/20/18 08/21/18 08/21/18 05:25 03:54 05:45 WBC 24.1 H RBC 2.83 L Hgb 8.8 L Hct 26.7 L RDW 15.7 H Plt Count 127 L Lymph % (Auto) [place] % (Auto) Lymph # [place] # Seg Neutrophils % Seg Neuts % (Manual) 94.0 H Lymphocytes % (Manual) 4.0 L Nucleated RBC % 1.0 H Seg Neutrophils # Seg Neutrophils # Man 22.7 H Lymphocytes # (Manual) 1.0 L D-Dimer POC ABG pH POC ABG pCO2 31.9 L POC ABG pO2 66 L VBG pH Sodium 146 H D Potassium Chloride 111.2 H Carbon Dioxide BUN 24 H Creatinine Glucose 141 H POC Glucose Hemoglobin A1c Lactic Acid Calcium 8.1 L Phosphorus Magnesium Iron TIBC AST 65 H ALT 104 H Troponin T C-Reactive Protein Total Protein 6.2 L Albumin 2.6 L Triglycerides LDL Cholesterol Direct HDL Cholesterol Urine WBC (Auto) Vancomycin Trough Salicylates Acetaminophen % CD3 Cells % CD19 Cells Absolute CD19 Count Miscellaneous Test Crossmatch 08/21/18 08/22/18 08/22/18 05:45 06:20 06:45 WBC RBC Hgb Hct RDW Plt Count Lymph % (Auto) [place] % (Auto) Lymph # [place] # Seg Neutrophils % Seg Neuts % (Manual) Lymphocytes % (Manual) Nucleated RBC % Seg Neutrophils # Seg Neutrophils # Man Lymphocytes # (Manual) D-Dimer POC ABG pH POC ABG pCO2 32.9 L POC ABG pO2 VBG pH Sodium Potassium 3.5 L Chloride 109.4 H 112.4 H Carbon Dioxide 21 L 20 L BUN 50 H 61 H Creatinine 2.0 H D 1.9 H Glucose 144 H 154 H POC Glucose Hemoglobin A1c Lactic Acid Calcium 7.6 L 7.8 L Phosphorus Magnesium Iron TIBC AST ALT Troponin T C-Reactive Protein Total Protein 5.3 L Albumin 2.1 L Triglycerides LDL Cholesterol Direct HDL Cholesterol Urine WBC (Auto) Vancomycin Trough Salicylates Acetaminophen % CD3 Cells % CD19 Cells Absolute CD19 Count Miscellaneous Test Crossmatch 08/22/18 08/22/18 08/22/18 06:45 15:29 18:40 WBC RBC Hgb Hct RDW Plt Count Lymph % (Auto) [place] % (Auto) Lymph # [place] # Seg Neutrophils % Seg Neuts % (Manual) Lymphocytes % (Manual) Nucleated RBC % Seg Neutrophils # Seg Neutrophils # Man Lymphocytes # (Manual) D-Dimer POC ABG pH POC ABG pCO2 POC ABG pO2 VBG pH Sodium Potassium Chloride Carbon Dioxide BUN Creatinine Glucose POC Glucose 169 H Hemoglobin A1c Lactic Acid Calcium Phosphorus Magnesium Iron TIBC AST ALT Troponin T C-Reactive Protein 4.70 H Total Protein Albumin Triglycerides 197 H LDL Cholesterol Direct HDL Cholesterol Urine WBC (Auto) Vancomycin Trough Salicylates Acetaminophen % CD3 Cells % CD19 Cells Absolute CD19 Count Miscellaneous Test Crossmatch 08/23/18 08/23/18 08/23/18 03:59 21:19 Unknown WBC 12.1 H RBC 2.29 L Hgb 7.1 L Hct 21.7 L RDW 15.7 H Plt Count 106 L Lymph % (Auto) [place] % (Auto) Lymph # [place] # Seg Neutrophils % Seg Neuts % (Manual) 92.0 H Lymphocytes % (Manual) 4.0 L Nucleated RBC % Seg Neutrophils # Seg Neutrophils # Man 11.1 H Lymphocytes # (Manual) 0.5 L D-Dimer POC ABG pH 7.306 L POC ABG pCO2 31.3 L POC ABG pO2 119 H 75 L VBG pH Sodium Potassium Chloride Carbon Dioxide BUN Creatinine Glucose POC Glucose Hemoglobin A1c Lactic Acid Calcium Phosphorus Magnesium Iron TIBC AST ALT Troponin T C-Reactive Protein Total Protein Albumin Triglycerides LDL Cholesterol Direct HDL Cholesterol Urine WBC (Auto) Vancomycin Trough Salicylates Acetaminophen % CD3 Cells % CD19 Cells Absolute CD19 Count Miscellaneous Test Crossmatch 08/23/18 08/24/18 08/24/18 Unknown 04:18 08:30 WBC 12.8 H RBC 2.24 L Hgb 7.0 L Hct 21.1 L RDW Plt Count Lymph % (Auto) [place] % (Auto) Lymph # [place] # Seg Neutrophils % Seg Neuts % (Manual) 93.0 H Lymphocytes % (Manual) 6.0 L Nucleated RBC % Seg Neutrophils # Seg Neutrophils # Man 11.9 H Lymphocytes # (Manual) 0.8 L D-Dimer POC ABG pH POC ABG pCO2 POC ABG pO2 78 L VBG pH Sodium Potassium Chloride 115.7 H Carbon Dioxide 21 L BUN 64 H Creatinine 2.0 H Glucose 149 H POC Glucose Hemoglobin A1c Lactic Acid Calcium 7.5 L Phosphorus Magnesium Iron TIBC AST ALT Troponin T C-Reactive Protein Total Protein 4.8 L Albumin 2.0 L Triglycerides LDL Cholesterol Direct HDL Cholesterol Urine WBC (Auto) Vancomycin Trough Salicylates Acetaminophen % CD3 Cells % CD19 Cells Absolute CD19 Count Miscellaneous Test Crossmatch 08/24/18 08/24/18 08/24/18 08:30 17:44 18:28 WBC RBC Hgb Hct RDW Plt Count Lymph % (Auto) [place] % (Auto) Lymph # [place] # Seg Neutrophils % Seg Neuts % (Manual) Lymphocytes % (Manual) Nucleated RBC % Seg Neutrophils # Seg Neutrophils # Man Lymphocytes # (Manual) D-Dimer POC ABG pH 7.474 H POC ABG pCO2 POC ABG pO2 61 L VBG pH Sodium Potassium Chloride 108.3 H Carbon Dioxide 20 L BUN 65 H Creatinine 2.0 H Glucose 167 H POC Glucose 164 H Hemoglobin A1c Lactic Acid Calcium 7.7 L Phosphorus Magnesium Iron TIBC AST ALT Troponin T C-Reactive Protein Total Protein 5.3 L Albumin 2.2 L Triglycerides LDL Cholesterol Direct HDL Cholesterol Urine WBC (Auto) Vancomycin Trough Salicylates Acetaminophen % CD3 Cells % CD19 Cells Absolute CD19 Count Miscellaneous Test Crossmatch 08/25/18 08/25/18 08/25/18 03:35 05:20 05:20 WBC RBC Hgb 6.7 L Hct 21.0 L RDW Plt Count Lymph % (Auto) [place] % (Auto) Lymph # [place] # Seg Neutrophils % Seg Neuts % (Manual) Lymphocytes % (Manual) Nucleated RBC % Seg Neutrophils # Seg Neutrophils # Man Lymphocytes # (Manual) D-Dimer POC ABG pH POC ABG pCO2 POC ABG pO2 79 L VBG pH Sodium Potassium Chloride Carbon Dioxide 21 L BUN 71 H Creatinine 3.1 H D Glucose 171 H POC Glucose Hemoglobin A1c Lactic Acid Calcium 7.5 L Phosphorus Magnesium Iron TIBC AST ALT Troponin T C-Reactive Protein Total Protein Albumin Triglycerides LDL Cholesterol Direct HDL Cholesterol Urine WBC (Auto) Vancomycin Trough Salicylates Acetaminophen % CD3 Cells % CD19 Cells Absolute CD19 Count Miscellaneous Test Crossmatch 08/25/18 08/25/18 08/25/18 05:20 08:52 12:42 WBC RBC Hgb Hct RDW Plt Count Lymph % (Auto) [place] % (Auto) Lymph # [place] # Seg Neutrophils % Seg Neuts % (Manual) Lymphocytes % (Manual) Nucleated RBC % Seg Neutrophils # Seg Neutrophils # Man Lymphocytes # (Manual) D-Dimer POC ABG pH POC ABG pCO2 POC ABG pO2 VBG pH Sodium Potassium Chloride Carbon Dioxide BUN Creatinine Glucose POC Glucose 166 H Hemoglobin A1c Lactic Acid Calcium Phosphorus Magnesium Iron TIBC AST ALT Troponin T C-Reactive Protein 5.00 H Total Protein Albumin Triglycerides LDL Cholesterol Direct HDL Cholesterol Urine WBC (Auto) Vancomycin Trough Salicylates Acetaminophen % CD3 Cells % CD19 Cells Absolute CD19 Count Miscellaneous Test Crossmatch See Detail 08/25/18 08/26/18 08/26/18 18:05 00:13 04:53 WBC RBC Hgb Hct RDW Plt Count Lymph % (Auto) [place] % (Auto) Lymph # [place] # Seg Neutrophils % Seg Neuts % (Manual) Lymphocytes % (Manual) Nucleated RBC % Seg Neutrophils # Seg Neutrophils # Man Lymphocytes # (Manual) D-Dimer POC ABG pH POC ABG pCO2 30.9 L POC ABG pO2 70 L VBG pH Sodium Potassium Chloride Carbon Dioxide BUN Creatinine Glucose POC Glucose 121 H 164 H Hemoglobin A1c Lactic Acid Calcium Phosphorus Magnesium Iron TIBC AST ALT Troponin T C-Reactive Protein Total Protein Albumin Triglycerides LDL Cholesterol Direct HDL Cholesterol Urine WBC (Auto) Vancomycin Trough Salicylates Acetaminophen % CD3 Cells % CD19 Cells Absolute CD19 Count Miscellaneous Test Crossmatch 08/26/18 08/26/18 08/26/18 05:42 06:00 06:00 WBC RBC 2.62 L Hgb 7.7 L Hct 23.0 L RDW 22.0 H Plt Count Lymph % (Auto) 6.3 L [place] % (Auto) Lymph # 0.7 L [place] # Seg Neutrophils % 88.1 H Seg Neuts % (Manual) Lymphocytes % (Manual) Nucleated RBC % Seg Neutrophils # 9.6 H Seg Neutrophils # Man Lymphocytes # (Manual) D-Dimer POC ABG pH POC ABG pCO2 POC ABG pO2 VBG pH Sodium Potassium Chloride Carbon Dioxide 21 L BUN 70 H Creatinine 3.3 H Glucose 146 H POC Glucose 149 H Hemoglobin A1c Lactic Acid Calcium 8.0 L Phosphorus Magnesium Iron TIBC AST ALT Troponin T C-Reactive Protein Total Protein Albumin Triglycerides LDL Cholesterol Direct HDL Cholesterol Urine WBC (Auto) Vancomycin Trough Salicylates Acetaminophen % CD3 Cells % CD19 Cells Absolute CD19 Count Miscellaneous Test Crossmatch 08/26/18 08/26/18 08/27/18 11:37 23:54 04:35 WBC RBC 2.50 L Hgb 7.6 L Hct 22.3 L RDW 21.8 H Plt Count Lymph % (Auto) 7.3 L [place] % (Auto) Lymph # 0.7 L [place] # Seg Neutrophils % 85.6 H Seg Neuts % (Manual) Lymphocytes % (Manual) Nucleated RBC % Seg Neutrophils # 8.6 H Seg Neutrophils # Man Lymphocytes # (Manual) D-Dimer POC ABG pH POC ABG pCO2 POC ABG pO2 VBG pH Sodium Potassium Chloride Carbon Dioxide BUN Creatinine Glucose POC Glucose 183 H 150 H Hemoglobin A1c Lactic Acid Calcium Phosphorus Magnesium Iron TIBC AST ALT Troponin T C-Reactive Protein Total Protein Albumin Triglycerides LDL Cholesterol Direct HDL Cholesterol Urine WBC (Auto) Vancomycin Trough Salicylates Acetaminophen % CD3 Cells % CD19 Cells Absolute CD19 Count Miscellaneous Test Crossmatch 08/27/18 08/27/18 08/28/18 04:35 12:17 04:43 WBC RBC Hgb Hct RDW Plt Count Lymph % (Auto) [place] % (Auto) Lymph # [place] # Seg Neutrophils % Seg Neuts % (Manual) Lymphocytes % (Manual) Nucleated RBC % Seg Neutrophils # Seg Neutrophils # Man Lymphocytes # (Manual) D-Dimer POC ABG pH POC ABG pCO2 32.1 L 33.8 L POC ABG pO2 68 L 78 L VBG pH Sodium Potassium Chloride Carbon Dioxide 19 L BUN 67 H Creatinine 2.9 H Glucose 155 H POC Glucose Hemoglobin A1c Lactic Acid Calcium Phosphorus 4.70 H Magnesium Iron TIBC AST ALT Troponin T C-Reactive Protein Total Protein Albumin Triglycerides LDL Cholesterol Direct HDL Cholesterol Urine WBC (Auto) Vancomycin Trough Salicylates Acetaminophen % CD3 Cells % CD19 Cells Absolute CD19 Count Miscellaneous Test Crossmatch 08/28/18 08/28/18 08/28/18 05:03 05:20 05:20 WBC RBC 2.43 L Hgb 7.4 L Hct 21.8 L RDW 20.8 H Plt Count Lymph % (Auto) 7.6 L [place] % (Auto) 8.7 H Lymph # 0.7 L [place] # Seg Neutrophils % 82.9 H Seg Neuts % (Manual) Lymphocytes % (Manual) Nucleated RBC % Seg Neutrophils # Seg Neutrophils # Man Lymphocytes # (Manual) D-Dimer POC ABG pH POC ABG pCO2 POC ABG pO2 VBG pH Sodium Potassium Chloride 107.8 H Carbon Dioxide 21 L BUN 55 H Creatinine 2.0 H Glucose 177 H POC Glucose 160 H Hemoglobin A1c Lactic Acid Calcium Phosphorus Magnesium Iron TIBC AST ALT Troponin T C-Reactive Protein Total Protein Albumin Triglycerides LDL Cholesterol Direct HDL Cholesterol Urine WBC (Auto) Vancomycin Trough Salicylates Acetaminophen % CD3 Cells % CD19 Cells Absolute CD19 Count Miscellaneous Test Crossmatch 08/28/18 08/28/18 08/28/18 12:18 18:58 22:31 WBC RBC Hgb Hct RDW Plt Count Lymph % (Auto) [place] % (Auto) Lymph # [place] # Seg Neutrophils % Seg Neuts % (Manual) Lymphocytes % (Manual) Nucleated RBC % Seg Neutrophils # Seg Neutrophils # Man Lymphocytes # (Manual) D-Dimer POC ABG pH POC ABG pCO2 34.4 L POC ABG pO2 67 L VBG pH Sodium Potassium Chloride Carbon Dioxide BUN Creatinine Glucose POC Glucose 164 H 149 H Hemoglobin A1c Lactic Acid Calcium Phosphorus Magnesium Iron TIBC AST ALT Troponin T C-Reactive Protein Total Protein Albumin Triglycerides LDL Cholesterol Direct HDL Cholesterol Urine WBC (Auto) Vancomycin Trough Salicylates Acetaminophen % CD3 Cells % CD19 Cells Absolute CD19 Count Miscellaneous Test Crossmatch 08/28/18 08/29/18 08/29/18 23:33 05:25 05:25 WBC RBC 2.30 L Hgb 7.0 L Hct 20.9 L RDW 21.0 H Plt Count Lymph % (Auto) 11.5 L [place] % (Auto) 9.2 H Lymph # 0.8 L [place] # Seg Neutrophils % 78.8 H Seg Neuts % (Manual) Lymphocytes % (Manual) Nucleated RBC % Seg Neutrophils # Seg Neutrophils # Man Lymphocytes # (Manual) D-Dimer POC ABG pH POC ABG pCO2 POC ABG pO2 VBG pH Sodium Potassium Chloride 111.1 H Carbon Dioxide BUN 55 H Creatinine 1.8 H Glucose 162 H POC Glucose 143 H Hemoglobin A1c Lactic Acid Calcium Phosphorus Magnesium Iron TIBC AST 46 H ALT < 5 L Troponin T C-Reactive Protein Total Protein 5.7 L Albumin 2.1 L Triglycerides LDL Cholesterol Direct HDL Cholesterol Urine WBC (Auto) Vancomycin Trough Salicylates Acetaminophen % CD3 Cells % CD19 Cells Absolute CD19 Count Miscellaneous Test Crossmatch 08/29/18 08/29/18 08/30/18 18:19 23:35 05:03 WBC RBC Hgb Hct RDW Plt Count Lymph % (Auto) [place] % (Auto) Lymph # [place] # Seg Neutrophils % Seg Neuts % (Manual) Lymphocytes % (Manual) Nucleated RBC % Seg Neutrophils # Seg Neutrophils # Man Lymphocytes # (Manual) D-Dimer POC ABG pH POC ABG pCO2 POC ABG pO2 VBG pH Sodium Potassium Chloride Carbon Dioxide BUN Creatinine Glucose POC Glucose 155 H 139 H 122 H Hemoglobin A1c Lactic Acid Calcium Phosphorus Magnesium Iron TIBC AST ALT Troponin T C-Reactive Protein Total Protein Albumin Triglycerides LDL Cholesterol Direct HDL Cholesterol Urine WBC (Auto) Vancomycin Trough Salicylates Acetaminophen % CD3 Cells % CD19 Cells Absolute CD19 Count Miscellaneous Test Crossmatch 08/30/18 08/30/18 08/30/18 09:33 09:33 09:54 WBC RBC 2.58 L Hgb 7.9 L Hct 23.5 L RDW 20.9 H Plt Count Lymph % (Auto) 8.0 L [place] % (Auto) 9.7 H Lymph # 0.8 L [place] # 1.0 H Seg Neutrophils % 82.1 H Seg Neuts % (Manual) Lymphocytes % (Manual) Nucleated RBC % Seg Neutrophils # 8.2 H Seg Neutrophils # Man Lymphocytes # (Manual) D-Dimer POC ABG pH POC ABG pCO2 POC ABG pO2 VBG pH Sodium 146 H Potassium Chloride 110.7 H Carbon Dioxide BUN 56 H Creatinine 1.9 H Glucose 145 H POC Glucose Hemoglobin A1c Lactic Acid Calcium Phosphorus 4.60 H Magnesium Iron TIBC AST ALT < 5 L Troponin T C-Reactive Protein Total Protein Albumin 2.7 L Triglycerides LDL Cholesterol Direct HDL Cholesterol Urine WBC (Auto) Vancomycin Trough Salicylates Acetaminophen % CD3 Cells % CD19 Cells Absolute CD19 Count Miscellaneous Test Flexitest 1 H Crossmatch 08/30/18 08/30/18 08/30/18 09:57 11:26 18:08 WBC RBC Hgb Hct RDW Plt Count Lymph % (Auto) [place] % (Auto) Lymph # [place] # Seg Neutrophils % Seg Neuts % (Manual) Lymphocytes % (Manual) Nucleated RBC % Seg Neutrophils # Seg Neutrophils # Man Lymphocytes # (Manual) D-Dimer POC ABG pH POC ABG pCO2 POC ABG pO2 VBG pH Sodium Potassium Chloride Carbon Dioxide BUN Creatinine Glucose POC Glucose 149 H 156 H Hemoglobin A1c Lactic Acid Calcium Phosphorus Magnesium Iron TIBC AST ALT Troponin T C-Reactive Protein Total Protein Albumin Triglycerides LDL Cholesterol Direct HDL Cholesterol Urine WBC (Auto) Vancomycin Trough Salicylates Acetaminophen % CD3 Cells % CD19 Cells Absolute CD19 Count Miscellaneous Test Flexitest 1 H Crossmatch 08/30/18 08/31/18 08/31/18 23:14 05:16 08:40 WBC RBC Hgb Hct RDW Plt Count Lymph % (Auto) [place] % (Auto) Lymph # [place] # Seg Neutrophils % Seg Neuts % (Manual) Lymphocytes % (Manual) Nucleated RBC % Seg Neutrophils # Seg Neutrophils # Man Lymphocytes # (Manual) D-Dimer POC ABG pH POC ABG pCO2 POC ABG pO2 VBG pH Sodium 151 H Potassium Chloride 113.8 H Carbon Dioxide BUN 45 H Creatinine Glucose 144 H POC Glucose 117 H 133 H Hemoglobin A1c Lactic Acid Calcium Phosphorus Magnesium Iron TIBC AST ALT Troponin T C-Reactive Protein Total Protein Albumin Triglycerides LDL Cholesterol Direct HDL Cholesterol Urine WBC (Auto) Vancomycin Trough Salicylates Acetaminophen % CD3 Cells % CD19 Cells Absolute CD19 Count Miscellaneous Test Crossmatch 08/31/18 09/01/18 09/01/18 23:46 04:45 04:45 WBC RBC 2.38 L Hgb 7.3 L Hct 22.1 L RDW 21.1 H Plt Count Lymph % (Auto) [place] % (Auto) Lymph # [place] # Seg Neutrophils % Seg Neuts % (Manual) 93.0 H Lymphocytes % (Manual) 4.0 L Nucleated RBC % Seg Neutrophils # Seg Neutrophils # Man 10.1 H Lymphocytes # (Manual) 0.4 L D-Dimer POC ABG pH POC ABG pCO2 POC ABG pO2 VBG pH Sodium 156 H Potassium 3.1 L Chloride 115.2 H Carbon Dioxide BUN 34 H Creatinine Glucose 125 H POC Glucose 124 H Hemoglobin A1c Lactic Acid Calcium Phosphorus Magnesium Iron TIBC AST ALT Troponin T C-Reactive Protein Total Protein Albumin Triglycerides LDL Cholesterol Direct HDL Cholesterol Urine WBC (Auto) Vancomycin Trough Salicylates Acetaminophen % CD3 Cells % CD19 Cells Absolute CD19 Count Miscellaneous Test Crossmatch 09/01/18 09/01/18 09/01/18 05:34 11:20 17:52 WBC RBC Hgb Hct RDW Plt Count Lymph % (Auto) [place] % (Auto) Lymph # [place] # Seg Neutrophils % Seg Neuts % (Manual) Lymphocytes % (Manual) Nucleated RBC % Seg Neutrophils # Seg Neutrophils # Man Lymphocytes # (Manual) D-Dimer POC ABG pH 7.553 H POC ABG pCO2 POC ABG pO2 74 L VBG pH Sodium Potassium Chloride Carbon Dioxide BUN Creatinine Glucose POC Glucose 128 H 146 H Hemoglobin A1c Lactic Acid Calcium Phosphorus Magnesium Iron TIBC AST ALT Troponin T C-Reactive Protein Total Protein Albumin Triglycerides LDL Cholesterol Direct HDL Cholesterol Urine WBC (Auto) Vancomycin Trough Salicylates Acetaminophen % CD3 Cells % CD19 Cells Absolute CD19 Count Miscellaneous Test Crossmatch 09/01/18 09/02/18 09/02/18 17:52 04:13 04:58 WBC 16.4 H RBC 2.64 L Hgb 7.9 L Hct 24.3 L RDW 20.8 H Plt Count Lymph % (Auto) [place] % (Auto) Lymph # [place] # Seg Neutrophils % Seg Neuts % (Manual) 96.0 H Lymphocytes % (Manual) 1.0 L Nucleated RBC % Seg Neutrophils # Seg Neutrophils # Man 15.7 H Lymphocytes # (Manual) 0.2 L D-Dimer POC ABG pH 7.488 H POC ABG pCO2 POC ABG pO2 63 L VBG pH Sodium Potassium Chloride Carbon Dioxide BUN Creatinine Glucose POC Glucose 143 H Hemoglobin A1c Lactic Acid Calcium Phosphorus Magnesium Iron TIBC AST ALT Troponin T C-Reactive Protein Total Protein Albumin Triglycerides LDL Cholesterol Direct HDL Cholesterol Urine WBC (Auto) Vancomycin Trough Salicylates Acetaminophen % CD3 Cells % CD19 Cells Absolute CD19 Count Miscellaneous Test Crossmatch 09/02/18 09/02/18 09/02/18 04:58 11:03 18:18 WBC RBC Hgb Hct RDW Plt Count Lymph % (Auto) [place] % (Auto) Lymph # [place] # Seg Neutrophils % Seg Neuts % (Manual) Lymphocytes % (Manual) Nucleated RBC % Seg Neutrophils # Seg Neutrophils # Man Lymphocytes # (Manual) D-Dimer POC ABG pH 7.344 L POC ABG pCO2 52.8 H POC ABG pO2 VBG pH Sodium 158 H Potassium 2.9 L* Chloride 115.7 H Carbon Dioxide BUN 27 H Creatinine 0.6 L Glucose 128 H POC Glucose 121 H Hemoglobin A1c Lactic Acid Calcium Phosphorus Magnesium 1.60 L Iron TIBC AST 64 H ALT Troponin T C-Reactive Protein Total Protein Albumin 2.6 L Triglycerides LDL Cholesterol Direct HDL Cholesterol Urine WBC (Auto) Vancomycin Trough Salicylates Acetaminophen % CD3 Cells % CD19 Cells Absolute CD19 Count Miscellaneous Test Crossmatch 09/02/18 09/03/18 09/03/18 23:06 03:36 04:25 WBC RBC 2.20 L Hgb 6.7 L Hct 20.9 L RDW 21.1 H Plt Count Lymph % (Auto) [place] % (Auto) Lymph # [place] # Seg Neutrophils % Seg Neuts % (Manual) 90.0 H Lymphocytes % (Manual) 5.0 L Nucleated RBC % Seg Neutrophils # Seg Neutrophils # Man 8.7 H Lymphocytes # (Manual) 0.5 L D-Dimer POC ABG pH POC ABG pCO2 POC ABG pO2 54 L VBG pH Sodium Potassium Chloride Carbon Dioxide BUN Creatinine Glucose POC Glucose 121 H Hemoglobin A1c Lactic Acid Calcium Phosphorus Magnesium Iron TIBC AST ALT Troponin T C-Reactive Protein Total Protein Albumin Triglycerides LDL Cholesterol Direct HDL Cholesterol Urine WBC (Auto) Vancomycin Trough Salicylates Acetaminophen % CD3 Cells % CD19 Cells Absolute CD19 Count Miscellaneous Test Crossmatch 09/03/18 09/03/18 09/03/18 04:25 05:45 10:24 WBC RBC Hgb Hct RDW Plt Count Lymph % (Auto) [place] % (Auto) Lymph # [place] # Seg Neutrophils % Seg Neuts % (Manual) Lymphocytes % (Manual) Nucleated RBC % Seg Neutrophils # Seg Neutrophils # Man Lymphocytes # (Manual) D-Dimer POC ABG pH POC ABG pCO2 POC ABG pO2 VBG pH Sodium 158 H Potassium 3.1 L Chloride 120.4 H Carbon Dioxide BUN 25 H Creatinine 0.6 L Glucose 127 H POC Glucose 178 H Hemoglobin A1c Lactic Acid Calcium 7.9 L Phosphorus Magnesium Iron TIBC AST ALT Troponin T C-Reactive Protein Total Protein 6.0 L Albumin 2.4 L Triglycerides LDL Cholesterol Direct HDL Cholesterol Urine WBC (Auto) Vancomycin Trough Salicylates Acetaminophen % CD3 Cells % CD19 Cells Absolute CD19 Count Miscellaneous Test Crossmatch See Detail 09/03/18 09/03/18 09/04/18 11:27 23:09 04:42 WBC RBC Hgb Hct RDW Plt Count Lymph % (Auto) [place] % (Auto) Lymph # [place] # Seg Neutrophils % Seg Neuts % (Manual) Lymphocytes % (Manual) Nucleated RBC % Seg Neutrophils # Seg Neutrophils # Man Lymphocytes # (Manual) D-Dimer POC ABG pH 7.293 L POC ABG pCO2 50.2 H POC ABG pO2 VBG pH Sodium Potassium Chloride Carbon Dioxide BUN Creatinine Glucose POC Glucose 107 H 139 H Hemoglobin A1c Lactic Acid Calcium Phosphorus Magnesium Iron TIBC AST ALT Troponin T C-Reactive Protein Total Protein Albumin Triglycerides LDL Cholesterol Direct HDL Cholesterol Urine WBC (Auto) Vancomycin Trough Salicylates Acetaminophen % CD3 Cells % CD19 Cells Absolute CD19 Count Miscellaneous Test Crossmatch 09/04/18 09/04/18 09/04/18 05:00 06:30 06:30 WBC RBC 2.32 L Hgb 7.0 L Hct 21.9 L RDW 20.2 H Plt Count Lymph % (Auto) [place] % (Auto) Lymph # [place] # Seg Neutrophils % 80.1 H Seg Neuts % (Manual) Lymphocytes % (Manual) Nucleated RBC % Seg Neutrophils # 8.2 H Seg Neutrophils # Man Lymphocytes # (Manual) D-Dimer POC ABG pH POC ABG pCO2 POC ABG pO2 VBG pH Sodium 150 H D Potassium Chloride 115.9 H Carbon Dioxide BUN 21 H Creatinine 0.6 L Glucose 125 H POC Glucose 154 H Hemoglobin A1c Lactic Acid Calcium 7.9 L Phosphorus Magnesium 1.50 L Iron TIBC AST ALT Troponin T C-Reactive Protein Total Protein Albumin Triglycerides LDL Cholesterol Direct HDL Cholesterol Urine WBC (Auto) Vancomycin Trough Salicylates Acetaminophen % CD3 Cells % CD19 Cells Absolute CD19 Count Miscellaneous Test Crossmatch 09/04/18 09/04/18 09/04/18 11:20 11:51 18:27 WBC RBC Hgb Hct RDW Plt Count Lymph % (Auto) [place] % (Auto) Lymph # [place] # Seg Neutrophils % Seg Neuts % (Manual) Lymphocytes % (Manual) Nucleated RBC % Seg Neutrophils # Seg Neutrophils # Man Lymphocytes # (Manual) D-Dimer POC ABG pH 7.244 L POC ABG pCO2 54.2 H POC ABG pO2 62 L VBG pH Sodium Potassium Chloride Carbon Dioxide BUN Creatinine Glucose POC Glucose 156 H 129 H Hemoglobin A1c Lactic Acid Calcium Phosphorus Magnesium Iron TIBC AST ALT Troponin T C-Reactive Protein Total Protein Albumin Triglycerides LDL Cholesterol Direct HDL Cholesterol Urine WBC (Auto) Vancomycin Trough Salicylates Acetaminophen % CD3 Cells % CD19 Cells Absolute CD19 Count Miscellaneous Test Crossmatch 09/05/18 09/05/18 09/05/18 03:46 04:00 04:00 WBC RBC 2.13 L Hgb 6.4 L Hct 20.1 L RDW 19.9 H Plt Count 117 L Lymph % (Auto) [place] % (Auto) Lymph # 0.9 L [place] # Seg Neutrophils % 81.7 H Seg Neuts % (Manual) Lymphocytes % (Manual) Nucleated RBC % Seg Neutrophils # Seg Neutrophils # Man Lymphocytes # (Manual) D-Dimer POC ABG pH 7.282 L POC ABG pCO2 57.3 H POC ABG pO2 124 H VBG pH Sodium Potassium Chloride 111.0 H Carbon Dioxide BUN 20 H Creatinine Glucose 130 H POC Glucose Hemoglobin A1c Lactic Acid Calcium 7.8 L Phosphorus Magnesium 1.60 L Iron TIBC AST ALT Troponin T C-Reactive Protein Total Protein Albumin Triglycerides LDL Cholesterol Direct HDL Cholesterol Urine WBC (Auto) Vancomycin Trough Salicylates Acetaminophen % CD3 Cells % CD19 Cells Absolute CD19 Count Miscellaneous Test Crossmatch 09/05/18 09/05/18 09/05/18 12:15 17:24 23:24 WBC RBC Hgb Hct RDW Plt Count Lymph % (Auto) [place] % (Auto) Lymph # [place] # Seg Neutrophils % Seg Neuts % (Manual) Lymphocytes % (Manual) Nucleated RBC % Seg Neutrophils # Seg Neutrophils # Man Lymphocytes # (Manual) D-Dimer POC ABG pH POC ABG pCO2 POC ABG pO2 VBG pH Sodium Potassium Chloride Carbon Dioxide BUN Creatinine Glucose POC Glucose 143 H 116 H 116 H Hemoglobin A1c Lactic Acid Calcium Phosphorus Magnesium Iron TIBC AST ALT Troponin T C-Reactive Protein Total Protein Albumin Triglycerides LDL Cholesterol Direct HDL Cholesterol Urine WBC (Auto) Vancomycin Trough Salicylates Acetaminophen % CD3 Cells % CD19 Cells Absolute CD19 Count Miscellaneous Test Crossmatch 09/06/18 09/06/18 09/06/18 03:33 04:20 04:20 WBC RBC 2.45 L Hgb 7.4 L Hct 23.0 L RDW 18.1 H Plt Count 99 L Lymph % (Auto) [place] % (Auto) Lymph # 1.0 L [place] # Seg Neutrophils % 78.0 H Seg Neuts % (Manual) Lymphocytes % (Manual) Nucleated RBC % Seg Neutrophils # Seg Neutrophils # Man Lymphocytes # (Manual) D-Dimer POC ABG pH 7.303 L POC ABG pCO2 49.2 H POC ABG pO2 73 L VBG pH Sodium Potassium Chloride 109.3 H Carbon Dioxide BUN 24 H Creatinine Glucose 108 H POC Glucose Hemoglobin A1c Lactic Acid Calcium 8.1 L Phosphorus Magnesium Iron TIBC AST ALT Troponin T C-Reactive Protein Total Protein Albumin Triglycerides LDL Cholesterol Direct HDL Cholesterol Urine WBC (Auto) Vancomycin Trough Salicylates Acetaminophen % CD3 Cells % CD19 Cells Absolute CD19 Count Miscellaneous Test Crossmatch 09/06/18 09/06/18 09/06/18 04:55 11:29 14:40 WBC RBC Hgb Hct RDW Plt Count Lymph % (Auto) [place] % (Auto) Lymph # [place] # Seg Neutrophils % Seg Neuts % (Manual) Lymphocytes % (Manual) Nucleated RBC % Seg Neutrophils # Seg Neutrophils # Man Lymphocytes # (Manual) D-Dimer POC ABG pH POC ABG pCO2 POC ABG pO2 VBG pH Sodium Potassium Chloride Carbon Dioxide BUN Creatinine Glucose POC Glucose 124 H 149 H Hemoglobin A1c Lactic Acid Calcium Phosphorus Magnesium Iron TIBC AST ALT Troponin T C-Reactive Protein Total Protein Albumin Triglycerides LDL Cholesterol Direct HDL Cholesterol Urine WBC (Auto) Vancomycin Trough 28.6 H Salicylates Acetaminophen % CD3 Cells % CD19 Cells Absolute CD19 Count Miscellaneous Test Crossmatch 09/06/18 09/06/18 09/07/18 17:43 20:08 00:39 WBC RBC Hgb Hct RDW Plt Count Lymph % (Auto) [place] % (Auto) Lymph # [place] # Seg Neutrophils % Seg Neuts % (Manual) Lymphocytes % (Manual) Nucleated RBC % Seg Neutrophils # Seg Neutrophils # Man Lymphocytes # (Manual) D-Dimer POC ABG pH POC ABG pCO2 POC ABG pO2 VBG pH Sodium Potassium Chloride Carbon Dioxide BUN Creatinine Glucose POC Glucose 138 H 118 H 131 H Hemoglobin A1c Lactic Acid Calcium Phosphorus Magnesium Iron TIBC AST ALT Troponin T C-Reactive Protein Total Protein Albumin Triglycerides LDL Cholesterol Direct HDL Cholesterol Urine WBC (Auto) Vancomycin Trough Salicylates Acetaminophen % CD3 Cells % CD19 Cells Absolute CD19 Count Miscellaneous Test Crossmatch 09/07/18 09/07/18 09/07/18 05:40 05:40 12:03 WBC RBC 2.40 L Hgb 7.3 L Hct 22.5 L RDW 17.8 H Plt Count 92 L Lymph % (Auto) [place] % (Auto) Lymph # [place] # Seg Neutrophils % Seg Neuts % (Manual) 80.0 H Lymphocytes % (Manual) Nucleated RBC % 1.0 H Seg Neutrophils # Seg Neutrophils # Man Lymphocytes # (Manual) 0.8 L D-Dimer POC ABG pH POC ABG pCO2 POC ABG pO2 VBG pH Sodium Potassium Chloride 109.8 H Carbon Dioxide BUN 26 H Creatinine Glucose 118 H POC Glucose 145 H Hemoglobin A1c Lactic Acid Calcium 8.0 L Phosphorus Magnesium Iron 26 L TIBC 150 L AST 88 H ALT Troponin T C-Reactive Protein Total Protein 5.8 L Albumin 2.1 L Triglycerides LDL Cholesterol Direct HDL Cholesterol Urine WBC (Auto) Vancomycin Trough Salicylates Acetaminophen % CD3 Cells % CD19 Cells Absolute CD19 Count Miscellaneous Test Crossmatch 09/07/18 09/07/18 09/08/18 17:39 23:21 05:48 WBC RBC Hgb Hct RDW Plt Count Lymph % (Auto) [place] % (Auto) Lymph # [place] # Seg Neutrophils % Seg Neuts % (Manual) Lymphocytes % (Manual) Nucleated RBC % Seg Neutrophils # Seg Neutrophils # Man Lymphocytes # (Manual) D-Dimer POC ABG pH POC ABG pCO2 POC ABG pO2 VBG pH Sodium Potassium Chloride Carbon Dioxide BUN Creatinine Glucose POC Glucose 128 H 136 H 129 H Hemoglobin A1c Lactic Acid Calcium Phosphorus Magnesium Iron TIBC AST ALT Troponin T C-Reactive Protein Total Protein Albumin Triglycerides LDL Cholesterol Direct HDL Cholesterol Urine WBC (Auto) Vancomycin Trough Salicylates Acetaminophen % CD3 Cells % CD19 Cells Absolute CD19 Count Miscellaneous Test Crossmatch 09/08/18 09/08/18 09/08/18 06:17 10:06 10:42 WBC RBC Hgb Hct RDW Plt Count Lymph % (Auto) [place] % (Auto) Lymph # [place] # Seg Neutrophils % Seg Neuts % (Manual) Lymphocytes % (Manual) Nucleated RBC % Seg Neutrophils # Seg Neutrophils # Man Lymphocytes # (Manual) D-Dimer POC ABG pH 7.292 L 7.276 L POC ABG pCO2 56.9 H 65.1 H POC ABG pO2 VBG pH Sodium 146 H Potassium Chloride 109.1 H Carbon Dioxide BUN 28 H Creatinine Glucose 165 H POC Glucose Hemoglobin A1c Lactic Acid Calcium Phosphorus Magnesium Iron TIBC AST ALT Troponin T C-Reactive Protein Total Protein Albumin Triglycerides LDL Cholesterol Direct HDL Cholesterol Urine WBC (Auto) Vancomycin Trough Salicylates Acetaminophen % CD3 Cells % CD19 Cells Absolute CD19 Count Miscellaneous Test Crossmatch 09/08/18 09/08/18 09/08/18 11:06 18:07 23:20 WBC RBC Hgb Hct RDW Plt Count Lymph % (Auto) [place] % (Auto) Lymph # [place] # Seg Neutrophils % Seg Neuts % (Manual) Lymphocytes % (Manual) Nucleated RBC % Seg Neutrophils # Seg Neutrophils # Man Lymphocytes # (Manual) D-Dimer POC ABG pH POC ABG pCO2 POC ABG pO2 VBG pH Sodium Potassium Chloride Carbon Dioxide BUN Creatinine Glucose POC Glucose 165 H 140 H 124 H Hemoglobin A1c Lactic Acid Calcium Phosphorus Magnesium Iron TIBC AST ALT Troponin T C-Reactive Protein Total Protein Albumin Triglycerides LDL Cholesterol Direct HDL Cholesterol Urine WBC (Auto) Vancomycin Trough Salicylates Acetaminophen % CD3 Cells % CD19 Cells Absolute CD19 Count Miscellaneous Test Crossmatch 09/09/18 09/09/18 09/09/18 05:04 08:39 08:39 WBC RBC 2.60 L Hgb 8.1 L Hct 24.6 L RDW 17.9 H Plt Count Lymph % (Auto) [place] % (Auto) Lymph # [place] # Seg Neutrophils % Seg Neuts % (Manual) Lymphocytes % (Manual) Nucleated RBC % Seg Neutrophils # Seg Neutrophils # Man Lymphocytes # (Manual) D-Dimer POC ABG pH POC ABG pCO2 POC ABG pO2 VBG pH Sodium Potassium Chloride Carbon Dioxide BUN 32 H Creatinine Glucose 150 H POC Glucose 168 H Hemoglobin A1c Lactic Acid Calcium Phosphorus Magnesium Iron TIBC AST ALT Troponin T C-Reactive Protein Total Protein Albumin Triglycerides LDL Cholesterol Direct HDL Cholesterol Urine WBC (Auto) Vancomycin Trough Salicylates Acetaminophen % CD3 Cells % CD19 Cells Absolute CD19 Count Miscellaneous Test Crossmatch 09/09/18 09/10/18 09/10/18 12:41 04:20 04:20 WBC RBC 2.49 L Hgb 7.7 L Hct 23.4 L RDW 18.0 H Plt Count Lymph % (Auto) 8.2 L [place] % (Auto) Lymph # 0.7 L [place] # Seg Neutrophils % 87.7 H Seg Neuts % (Manual) Lymphocytes % (Manual) Nucleated RBC % Seg Neutrophils # Seg Neutrophils # Man Lymphocytes # (Manual) D-Dimer POC ABG pH POC ABG pCO2 POC ABG pO2 VBG pH Sodium Potassium Chloride Carbon Dioxide 31 H BUN 39 H Creatinine Glucose 183 H POC Glucose 150 H Hemoglobin A1c Lactic Acid Calcium Phosphorus Magnesium Iron TIBC AST 85 H ALT 58 H Troponin T C-Reactive Protein Total Protein Albumin 2.5 L Triglycerides LDL Cholesterol Direct HDL Cholesterol Urine WBC (Auto) Vancomycin Trough Salicylates Acetaminophen % CD3 Cells % CD19 Cells Absolute CD19 Count Miscellaneous Test Crossmatch 09/10/18 09/10/18 09/10/18 04:39 05:06 11:17 WBC RBC Hgb Hct RDW Plt Count Lymph % (Auto) [place] % (Auto) Lymph # [place] # Seg Neutrophils % Seg Neuts % (Manual) Lymphocytes % (Manual) Nucleated RBC % Seg Neutrophils # Seg Neutrophils # Man Lymphocytes # (Manual) D-Dimer POC ABG pH POC ABG pCO2 51.4 H POC ABG pO2 VBG pH Sodium Potassium Chloride Carbon Dioxide BUN Creatinine Glucose POC Glucose 185 H 159 H Hemoglobin A1c Lactic Acid Calcium Phosphorus Magnesium Iron TIBC AST ALT Troponin T C-Reactive Protein Total Protein Albumin Triglycerides LDL Cholesterol Direct HDL Cholesterol Urine WBC (Auto) Vancomycin Trough Salicylates Acetaminophen % CD3 Cells % CD19 Cells Absolute CD19 Count Miscellaneous Test Crossmatch 09/10/18 09/11/18 09/11/18 16:57 00:17 01:10 WBC RBC Hgb Hct RDW Plt Count Lymph % (Auto) [place] % (Auto) Lymph # [place] # Seg Neutrophils % Seg Neuts % (Manual) Lymphocytes % (Manual) Nucleated RBC % Seg Neutrophils # Seg Neutrophils # Man Lymphocytes # (Manual) D-Dimer POC ABG pH POC ABG pCO2 POC ABG pO2 VBG pH Sodium Potassium Chloride Carbon Dioxide 34 H BUN 44 H Creatinine Glucose 154 H POC Glucose 177 H 163 H Hemoglobin A1c Lactic Acid Calcium Phosphorus Magnesium Iron TIBC AST 86 H ALT 68 H Troponin T C-Reactive Protein Total Protein Albumin 2.6 L Triglycerides LDL Cholesterol Direct HDL Cholesterol Urine WBC (Auto) Vancomycin Trough Salicylates Acetaminophen % CD3 Cells % CD19 Cells Absolute CD19 Count Miscellaneous Test Crossmatch 09/11/18 09/11/18 09/11/18 01:10 06:03 09:00 WBC 13.7 H RBC 2.61 L Hgb 8.0 L Hct 24.6 L RDW 19.1 H Plt Count Lymph % (Auto) 6.1 L [place] % (Auto) Lymph # 0.8 L [place] # Seg Neutrophils % 87.7 H Seg Neuts % (Manual) Lymphocytes % (Manual) Nucleated RBC % Seg Neutrophils # 12.0 H Seg Neutrophils # Man Lymphocytes # (Manual) D-Dimer POC ABG pH POC ABG pCO2 POC ABG pO2 VBG pH Sodium Potassium Chloride Carbon Dioxide 33 H BUN 45 H Creatinine Glucose 147 H POC Glucose 180 H Hemoglobin A1c Lactic Acid Calcium Phosphorus Magnesium Iron TIBC AST ALT Troponin T C-Reactive Protein Total Protein Albumin Triglycerides LDL Cholesterol Direct HDL Cholesterol Urine WBC (Auto) Vancomycin Trough Salicylates Acetaminophen % CD3 Cells % CD19 Cells Absolute CD19 Count Miscellaneous Test Crossmatch 09/11/18 11:31 WBC RBC Hgb Hct RDW Plt Count Lymph % (Auto) [place] % (Auto) Lymph # [place] # Seg Neutrophils % Seg Neuts % (Manual) Lymphocytes % (Manual) Nucleated RBC % Seg Neutrophils # Seg Neutrophils # Man Lymphocytes # (Manual) D-Dimer POC ABG pH 7.498 H POC ABG pCO2 46.3 H POC ABG pO2 VBG pH Sodium Potassium Chloride Carbon Dioxide BUN Creatinine Glucose POC Glucose Hemoglobin A1c Lactic Acid Calcium Phosphorus Magnesium Iron TIBC AST ALT Troponin T C-Reactive Protein Total Protein Albumin Triglycerides LDL Cholesterol Direct HDL Cholesterol Urine WBC (Auto) Vancomycin Trough Salicylates Acetaminophen % CD3 Cells % CD19 Cells Absolute CD19 Count Miscellaneous Test Crossmatch Chest x-ray: image reviewed (bilateral pulmonary infiltrates; Tubes and lines in good position) Allied health notes reviewed: RT (Wean down FIO2 to 60% then start weaning PEEP)
--- NOTE | 2018-09-11 13:42 | Progress Note ---
Assessment and Plan Cultures: 08/15/2018 blood culture: Camryn glabrata 1 of 4 08/15/2018 sputum culture: MSSA and Escherichia coli, wade susceptible 08/18/2018 blood culture: no growth 08/18/2018 urine culture: neg 08/22/2018 blood culture: no growth 08/25/2018 blood culture: no growth 09/02/2018 BAL cultures: resp almaz. Fungal and AFB pending: No growth thus far. 09/04/2018 blood culture: no growth thus far 09/04/2018 trach aspirate: no growth Fungitell was high (consistent with Candidemia), Aspergillus galactomannan negative. A/P: 68-year-old female with COPD, arthritis, history of multiple spinal surgeries was brought to the emergency room on 08/15/2018 with altered mental status: 1) Sepsis with septic shock: resolved. 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 Patient without any history of indwelling PICC line, TPN or immunocompromised status. reported severe explosive diarrhea, N/V before admission after taken 4 days of amoxicillin for dental implant on 07/29/2018 and had a EGD / colonoscopy on 08/08/[address] [facility] [address] Alcantara. I reviewed report - mild chronic gastritis, focal intestinal metaplasia, squamocolumnar mucosa with mild reflux-type changes, and tubular adenoma. -s/p fluconazole 800 mg loading dose then micafungin, s/p amphotericin D6 on 08/26 -serum Crypto negative. -08/15/2018 blood culture: Camryn glabrata -08/18/2018 blood culture: no growth -CTA chest showed limited study due to respiratory motion artifact. No ev idence of pulmonary embolism. Abnormal bilateral lung consolidation which may represent pulmonary edema or pneumonia. Mild cardiomegaly. Indeterminant mediastinal lymph nodes. -CT abdomen showed extensive bilateral lower lobe pulmonary infiltrates, rectal tube and Dodge catheter noted. NG tube at gastric antrum. Left hip prosthesis Extensive degenerative changes noted lumbar spine -TTE EF 25-30% no vegetations -HIV neg/ CD4 1004 -reviewed CT chest abd done 01/05/2019 showed cholecystectomy, mild fatty liver, postoperative changes of lumbar laminectomy with non specific fluid, 9 mm LLL pulmonary nodule which was compared to previous CT and was stable. -CRP 10-->5 3) Acute renal failure: On admission: improved. 4) Acute respiratory failure: Back on the vent. Recently completed pneumonia treatment. WBC up and low grade fever. Underwent bronch + BAL on 09/02/2018. Cultures with no growth thus far. On abx. CTA chest 09/06/2018 negative for PE, bilateral air space disease, no air bronchograms as such. High oxygen requirements, ?ARDS v/s fluid overload. 5) Right maxillary sinusitis: received empiric abx. 6) Acute encephalopathy: Likely multifactorial. CT head unremarkable for acute intracranial process. 7) Cardiomyopathy, LVEF 25-30% this admission. 8) H/O left hip prosthesis ? XR no effusion. CT with no enhancement 9) Left leg DVT: on anticoagulation. Hematology following. 10) Mild transaminitis: monitor for now. If persists, consider RUQ US. Recs: off micafungin since 09/08/2018 low grade fevers could be from DVT leucocytosis is probably from steroids Will follow along. Discussed with pt's at bedside. Brando Pradhan MD [facility], [place], [facility] C: [phone] O: [phone] F: [phone] Subjective Date of service: 09/11/18 Principal diagnosis: Acute hypoxemic hypercapnic Resp failure; AE-COPD; Acute kidney injury Interval history: Low grade temperatures. Remains on the vent. FiO2 coming down. Objective - Exam Narrative Exam: Physical Exam: Constitutional: awake, intubated. Head, Ears, Nose: Normocephalic, atraumatic. External ears, nose normal Eyes: Conjunctivae/corneas clear. No icterus. No ptosis. Neck: Supple, no meningeal signs Oral: intubated. Cardiovascular: S1, S2 normal. Respiratory: clear breath sounds b/l, equal bilaterally GI: Soft, bowel sounds normal. No peritoneal signs. Musculoskeletal: pedal edema bilaterally. L>R Skin: No rash or abscess Hem/Lymphatic: No palpable cervical or supraclavicular nodes. No lymphangitis Psych: calm, no agitation Neurological: awake, intubated, obeying basic commands - Constitutional Vitals: Vital Signs Temp Pulse Resp BP Pulse Ox 98.2 F 94 H 26 H 109/52 92 09/11/18 11:27 09/11/18 13:30 09/11/18 13:30 09/11/18 13:30 09/11/18 13:30 Temperature -Last 24 Hours Temperature 98.2 F Temperature 99.2 F Temperature 99.9 F Temperature 100.0 F Temperature 100.5 F Temperature 98.3 F - Labs CBC & Chem 7: 09/11/18 09:00 09/11/18 01:10 Labs: Abnormal lab results 09/10/18 09/11/18 09/11/18 Range/Units 16:57 00:17 01:10 WBC (4.5-11.0) K/mm3 RBC (3.65-5.03) M/mm3 Hgb (10.1-14.3) gm/dl Hct (30.3-42.9) % RDW (13.2-15.2) % Lymph % (Auto) (13.4-35.0) % Lymph # (1.2-5.4) K/mm3 Seg Neutrophils % (40.0-70.0) % Seg Neutrophils # (1.8-7.7) K/mm3 POC ABG pH (7.35-7.45) POC ABG pCO2 (35-45) Carbon Dioxide 34 H (22-30) mmol/L BUN 44 H (7-17) mg/dL Glucose 154 H (65-100) mg/dL POC Glucose 177 H 163 H (70-105) AST 86 H (5-40) units/L ALT 68 H (7-56) units/L Albumin 2.6 L (3.9-5) g/dL 09/11/18 09/11/18 09/11/18 Range/Units 01:10 06:03 09:00 WBC 13.7 H (4.5-11.0) K/mm3 RBC 2.61 L (3.65-5.03) M/mm3 Hgb 8.0 L (10.1-14.3) gm/dl Hct 24.6 L (30.3-42.9) % RDW 19.1 H (13.2-15.2) % Lymph % (Auto) 6.1 L (13.4-35.0) % Lymph # 0.8 L (1.2-5.4) K/mm3 Seg Neutrophils % 87.7 H (40.0-70.0) % Seg Neutrophils # 12.0 H (1.8-7.7) K/mm3 POC ABG pH (7.35-7.45) POC ABG pCO2 (35-45) Carbon Dioxide 33 H (22-30) mmol/L BUN 45 H (7-17) mg/dL Glucose 147 H (65-100) mg/dL POC Glucose 180 H (70-105) AST (5-40) units/L ALT (7-56) units/L Albumin (3.9-5) g/dL 09/11/18 09/11/18 Range/Units 11:14 11:31 WBC (4.5-11.0) K/mm3 RBC (3.65-5.03) M/mm3 Hgb (10.1-14.3) gm/dl Hct (30.3-42.9) % RDW (13.2-15.2) % Lymph % (Auto) (13.4-35.0) % Lymph # (1.2-5.4) K/mm3 Seg Neutrophils % (40.0-70.0) % Seg Neutrophils # (1.8-7.7) K/mm3 POC ABG pH 7.498 H (7.35-7.45) POC ABG pCO2 46.3 H (35-45) Carbon Dioxide (22-30) mmol/L BUN (7-17) mg/dL Glucose (65-100) mg/dL POC Glucose 163 H (70-105) AST (5-40) units/L ALT (7-56) units/L Albumin (3.9-5) g/dL
--- NOTE | 2018-09-11 17:23 | Hem/Onc Progress Note ---
Assessment and Plan 1. Bilateral posterior tibial and peroneal vein deep venous thrombosis, left leg edema. 2. Thrombocytopenia. The patient was on heparin-based treatment. Now it is fondaparinux. 3. Anemia. At admission, hemoglobin was normal. The patient received blood transfusion. deficiency workup. There may be a bleeding component. 4. Pulmonary embolism study is negative. 5. Camryn infection. 6. Chronic obstructive pulmonary disease. 7. Thrombocytopenia may be medication related. Heparin antibodies has been ordered. ? micafungin 8. History of renal failure. Nephrology following. 9. Maxillary sinusitis. 10. Respiratory failure, on ventilator. 11. History of cardiomyopathy. 12. We will follow the trend of platelets. 13. The patient has Dodge catheter. 14. Encephalopathy. 15. Because of anemia - low plt, there is a question if inferior vena cava filter is better to prevent more pulmonary complications. 16. I will discuss with other team members. 09/08 IVC filter was discussed as pt has anemia pt looks at you 09/09 d/w - pt SOB - d/w them reg DVT - anemia - IVC filter plt normalized Ferritin - b12 - folate normal - iron low - will follow trache eval ongoing 09/10 more awake - moves leg to command IV iron trial plt was low - now normal 09/11 hb 8 awake on vent - Patient Problems (1) Thrombocytopenia Current Visit: Yes Status: Acute (2) DVT (deep venous thrombosis) Current Visit: Yes Status: Acute (3) Anemia Current Visit: Yes Status: Acute Subjective Date of service: 09/11/18 Principal diagnosis: anemia Interval history: more awake Objective - Constitutional Vitals: Last Vital Signs Temp 98.8 F 09/11/18 16:00 Pulse 100 H 09/11/18 17:00 Resp 18 09/11/18 17:00 BP 166/87 09/11/18 17:00 Pulse Ox 88 09/11/18 17:00 General appearance: no acute distress, other (on vent) Performance status: 4-completely disabled - EENT Eyes: EOM intact ENT: other (vent) Lymph node exam: negative cervical - Respiratory Respiratory effort: Positive: normal Respiratory: bilateral: diminished - Cardiovascular Heart Sounds: Present: S1 & S2 Extremity abnormal: edema - Gastrointestinal General gastrointestinal: Present: soft Rectal Exam: deferred - Genitourinary Female genitourinary: Present: deferred - Integumentary Integumentary: warm - Musculoskeletal Musculoskeletal: generalized weakness - Labs Lab Results: Laboratory Results - last 24 hr 09/11/18 09/11/18 09/11/18 00:17 01:10 01:10 WBC RBC Hgb Hct MCV MCH MCHC RDW Plt Count Lymph % (Auto) [place] % (Auto) Eos % (Auto) Baso % (Auto) Lymph # [place] # Eos # Baso # Seg Neutrophils % Seg Neutrophils # POC ABG pH POC ABG pCO2 POC ABG pO2 POC ABG HCO3 POC ABG Total CO2 POC ABG O2 Sat POC ABG Base Excess FiO2 Sodium 144 144 Potassium 3.6 3.6 Chloride 101.3 101.9 Carbon Dioxide 34 H 33 H Anion Gap 12 13 BUN 44 H 45 H Creatinine 0.7 0.7 Estimated GFR > 60 > 60 BUN/Creatinine Ratio 63 64 Glucose 154 H 147 H POC Glucose 163 H Calcium 9.0 8.8 Phosphorus 3.60 Magnesium 1.90 Total Bilirubin 0.30 AST 86 H ALT 68 H Alkaline Phosphatase 82 Total Protein 6.5 Albumin 2.6 L Albumin/Globulin Ratio 0.7 09/11/18 09/11/18 09/11/18 06:03 09:00 11:14 WBC 13.7 H RBC 2.61 L Hgb 8.0 L Hct 24.6 L MCV 94 MCH 31 MCHC 33 RDW 19.1 H Plt Count 269 Lymph % (Auto) 6.1 L [place] % (Auto) 6.1 Eos % (Auto) 0.0 Baso % (Auto) 0.1 Lymph # 0.8 L [place] # 0.8 Eos # 0.0 Baso # 0.0 Seg Neutrophils % 87.7 H Seg Neutrophils # 12.0 H POC ABG pH POC ABG pCO2 POC ABG pO2 POC ABG HCO3 POC ABG Total CO2 POC ABG O2 Sat POC ABG Base Excess FiO2 Sodium Potassium Chloride Carbon Dioxide Anion Gap BUN Creatinine Estimated GFR BUN/Creatinine Ratio Glucose POC Glucose 180 H 163 H Calcium Phosphorus Magnesium Total Bilirubin AST ALT Alkaline Phosphatase Total Protein Albumin Albumin/Globulin Ratio 09/11/18 09/11/18 11:31 17:11 WBC RBC Hgb Hct MCV MCH MCHC RDW Plt Count Lymph % (Auto) [place] % (Auto) Eos % (Auto) Baso % (Auto) Lymph # [place] # Eos # Baso # Seg Neutrophils % Seg Neutrophils # POC ABG pH 7.498 H POC ABG pCO2 46.3 H POC ABG pO2 80 POC ABG HCO3 35.9 POC ABG Total CO2 37 POC ABG O2 Sat 97 POC ABG Base Excess 13 FiO2 50 Sodium Potassium Chloride Carbon Dioxide Anion Gap BUN Creatinine Estimated GFR BUN/Creatinine Ratio Glucose POC Glucose 202 H Calcium Phosphorus Magnesium Total Bilirubin AST ALT Alkaline Phosphatase Total Protein Albumin Albumin/Globulin Ratio Medications & Allergies - Medications Allergies/Adverse Reactions: Allergies No Known Allergies Allergy (Unverified 08/15/18 16:49) Home Medications: Home Medications Medication Instructions Recorded Confirmed Last Taken Type Carvedilol 6.25 mg PO BID 08/15/18 08/15/18 Unknown History DULoxetine 60 mg PO QDAY 08/15/18 08/15/18 Unknown History Gabapentin 600 mg PO Q6HR PRN 08/15/18 08/15/18 Unknown History Methylphenidate 5 mg PO TID 08/15/18 08/15/18 Unknown History Morphabond ER 60 mg PO Q12HR 08/15/18 08/15/18 Unknown History Pravastatin Sodium 10 mg PO QDAY 08/15/18 08/15/18 Unknown History Tizanidine HCl 4 mg PO Q12HR 08/15/18 08/15/18 Unknown History oxyCODONE /ACETAMINOPHEN 7.5 - 325 mg PO Q8HR 08/15/18 08/15/18 Unknown History ALBUTEROL Inhaler(NF) 90 mcg IH TID 08/29/18 08/29/18 Unknown History Omeprazole-Bicarb 40-1,100 Cap 40 mg PO DAILY 08/29/18 08/29/18 Unknown History Active Medications: Generic Name Dose Route Start Last Admin Trade Name Freq PRN Reason Stop Dose Admin Acetaminophen 650 mg 08/15/18 22:12 09/10/18 08:40 Tylenol PO 650 mg Q4H PRN Administration Pain MILD(1-3)/Fever >100.5/MONDRAGON Albuterol 2.5 mg 08/17/18 17:00 Proventil IH Q3HRT PRN Shortness Of Breath Albuterol/Ipratropium 1 ampul 08/20/18 14:00 09/11/18 13:53 Duoneb *Not For Prn Use* IH 1 ampul Q6HRT LAMAR Administration Lipase/Protease/Amylase 1 each 09/02/18 10:40 Pancresam Elizabeth 10,500 Unit FEEDTUBE PRN PRN For Clogged Feeding Tube Arformoterol Tartrate 15 mcg 08/18/18 20:00 09/11/18 08:03 Brosol Nebu IH Not Given Q12HRT LAMAR Budesonide 0.5 mg 08/18/18 20:00 09/11/18 08:03 Pulmicort IH 0.5 mg Q12HRT LAMAR Administration Carvedilol 3.125 mg 08/26/18 15:19 09/11/18 09:02 Coreg PO 3.125 mg BID LAMAR Administration Famotidine 20 mg 09/05/18 10:00 09/11/18 09:01 Pepcid PO 20 mg BID LAMAR Administration Fondaparinux 7.5 mg 09/07/18 10:00 09/11/18 09:02 Arixtra SUB-Q 7.5 mg DAILY LAMAR Administration Furosemide 40 mg 09/10/18 18:00 09/11/18 17:11 Lasix IV 09/11/18 18:01 40 mg 0600,1800 LAMAR Administration Hydralazine HCl 10 mg 08/19/18 13:59 09/10/18 19:32 Apresoline IV 10 mg Q3H PRN Administration Hydralazine HCl 25 mg 09/01/18 14:00 09/11/18 13:23 Apresoline PO 25 mg Q8HR LAMAR Administration Hydromorphone HCl 1 mg 09/06/18 10:38 09/11/18 07:36 Dilaudid IV 1 mg Q4H PRN Administration Pain , Severe (7-10) Hydromorphone HCl 2 mg 09/06/18 12:00 09/11/18 17:11 Dilaudid PO 2 mg Q6HR LAMAR Administration Hydrophilic Ointment 1 applic 08/15/18 21:55 09/01/18 09:07 Vaseline Lip Therapy TP 1 applic Q2HR PRN Administration Dry Lips Fentanyl Citrate 2,000 mcg in 100 mls @ 4.765 mls/hr 09/02/18 11:00 09/11/18 13:21 Fentanyl Drip Premix IV 3 mcg/kg/hr TITR LAMAR 14.295 mls/hr Administration Protocol 1 MCG/KG/HR Insulin Human Lispro 0 unit 09/04/18 18:00 09/11/18 17:11 Humalog SUB-Q 3 unit Q6HR LAMAR Administration Protocol Methylprednisolone Sodium Succinate 40 mg 09/09/18 14:00 09/11/18 13:23 Solu-Medrol IV 09/12/18 06:01 40 mg Q8HR LAMAR Administration Metoclopramide HCl 5 mg 08/15/18 22:50 Reglan IV Q6H PRN Nausea And Vomiting Midazolam HCl 1 mg 09/07/18 09:23 09/11/18 16:05 Versed IV 1 mg Q4H PRN Administration AGITATION Ondansetron HCl 4 mg 08/15/18 22:12 08/31/18 17:52 Zofran IV 4 mg Q8H PRN Administration Nausea And Vomiting Potassium Chloride 20 meq 09/10/18 10:00 09/11/18 09:02 Potassium Chloride FEEDTUBE 20 meq QDAY LAMAR Administration Quetiapine Fumarate 200 mg 09/04/18 15:00 09/11/18 09:01 Seroquel PO 200 mg BID LAMAR Administration Senna/Docusate Sodium 2 tab 09/06/18 11:00 09/11/18 09:01 Senokot S PO 2 tab BID LAMAR Administration Simple Syrup 15 ml 09/02/18 11:24 Simple Syrup FEEDTUBE PRN PRN Hypoglycemia Simple Syrup 30 ml 09/02/18 11:24 Simple Syrup FEEDTUBE PRN PRN Hypoglycemia Sodium Bicarbonate 325 mg 09/02/18 10:40 Sodium Bicarbonate FEEDTUBE PRN PRN For Clogged Feeding Tube Sodium Chloride 10 ml 08/15/18 22:12 09/07/18 22:25 Sodium Chloride Flush Syringe 10 Ml IV 10 ml PRN PRN Administration LINE FLUSH
[2018-09-12] MEDS: fentaNYL DRIP Premix 2,000 MCG/100 ML BAG IV SCH ×4 (02:05→18:01)
[2018-09-12] MEDS: DUONEB *Not for PRN Use IH SCH ×4 (02:32→19:18)
[2018-09-12] MEDS: SOLU-Medrol IV SCH (05:54)
[2018-09-12] MEDS: DILAUDID PO SCH ×4 (05:54→23:41)
[2018-09-12] MEDS: APRESOLINE PO SCH ×3 (05:54→23:41)
[2018-09-12 06:05] LABS: Basophils % (Auto) 0.2 % (0.0-1.8); Hematocrit 22.3 % (30.3-42.9); Hemoglobin 7.3 gm/dl (10.1-14.3); Lymphocytes # (Auto) 1.1 K/mm3 (1.2-5.4); Mean Corpuscular HGB Conc 33 % (30-34); Mean Corpuscular Volume 95 fl (79-97); Monocytes # (Auto) 0.8 K/mm3 (0.0-0.8); Monocytes % (Auto) 9.3 % (0.0-7.3); Platelet Count 212 K/mm3 (140-440); Red Blood Count 2.36 M/mm3 (3.65-5.03); Red Cell Distribution Width 18.4 % (13.2-15.2)
[2018-09-12] MEDS: HumaLOG SUB-Q SCH ×4 (06:13→23:42)
[2018-09-12 06:30] LABS: BUN/Creatinine Ratio 66; Blood Urea Nitrogen 46 mg/dL (7-17); Calcium 8.8 mg/dL (8.4-10.2); Hemolysis Index 3
[2018-09-12] MEDS: DILAUDID IV PRN ×2 (07:30→16:30)
--- NOTE | 2018-09-12 08:01 | Hem/Onc Progress Note ---
Assessment and Plan 1. Bilateral posterior tibial and peroneal vein deep venous thrombosis, left leg edema. 2. Thrombocytopenia. The patient was on heparin-based treatment. Now it is fondaparinux. 3. Anemia. At admission, hemoglobin was normal. The patient received blood transfusion. deficiency workup. There may be a bleeding component. 4. Pulmonary embolism study is negative. 5. Camryn infection. 6. Chronic obstructive pulmonary disease. 7. Thrombocytopenia may be medication related. Heparin antibodies has been ordered. ? micafungin 8. History of renal failure. Nephrology following. 9. Maxillary sinusitis. 10. Respiratory failure, on ventilator. 11. History of cardiomyopathy. 12. We will follow the trend of platelets. 13. The patient has Dodge catheter. 14. Encephalopathy. 15. Because of anemia - low plt, there is a question if inferior vena cava filter is better to prevent more pulmonary complications. 16. I will discuss with other team members. 09/08 IVC filter was discussed as pt has anemia pt looks at you 09/09 d/w - pt SOB - d/w them reg DVT - anemia - IVC filter plt normalized Ferritin - b12 - folate normal - iron low - will follow trache eval ongoing 09/10 more awake - moves leg to command IV iron trial plt was low - now normal 09/11 hb 8 awake on vent 09/12/2018 DVT - b/l leg - was on anticoag - pt planned to have procedure anemia - IV iron h/o low plt - better follows commands - moves leg - Patient Problems (1) Thrombocytopenia Current Visit: Yes Status: Acute (2) DVT (deep venous thrombosis) Current Visit: Yes Status: Acute (3) Anemia Current Visit: Yes Status: Acute Subjective Date of service: 09/12/18 Principal diagnosis: anemia Interval history: c/o pain Objective - Constitutional Vitals: Last Vital Signs Temp 100.7 F H 09/12/18 04:00 Pulse 85 09/12/18 07:00 Resp 18 09/12/18 07:00 BP 105/71 09/12/18 07:00 Pulse Ox 93 09/12/18 07:00 Pain Intensity (0-10): denies any pain General appearance: no acute distress Performance status: 4-completely disabled - EENT Eyes: EOM intact ENT: other (intubated) Lymph node exam: negative cervical - Respiratory Respiratory effort: Positive: normal Respiratory: bilateral: diminished - Cardiovascular Heart Sounds: Present: S1 & S2 Extremity abnormal: edema - Gastrointestinal General gastrointestinal: Present: soft, non-tender Rectal Exam: deferred - Genitourinary Female genitourinary: Present: deferred - Integumentary Integumentary: warm - Musculoskeletal Musculoskeletal: generalized weakness - Neurologic Neurologic: moves all extremities - Labs Lab Results: Laboratory Results - last 24 hr 09/11/18 09/11/18 09/11/18 09:00 11:14 11:31 WBC 13.7 H RBC 2.61 L Hgb 8.0 L Hct 24.6 L MCV 94 MCH 31 MCHC 33 RDW 19.1 H Plt Count 269 Lymph % (Auto) 6.1 L [place] % (Auto) 6.1 Eos % (Auto) 0.0 Baso % (Auto) 0.1 Lymph # 0.8 L [place] # 0.8 Eos # 0.0 Baso # 0.0 Seg Neutrophils % 87.7 H Seg Neutrophils # 12.0 H POC ABG pH 7.498 H POC ABG pCO2 46.3 H POC ABG pO2 80 POC ABG HCO3 35.9 POC ABG Total CO2 37 POC ABG O2 Sat 97 POC ABG Base Excess 13 FiO2 50 Sodium Potassium Chloride Carbon Dioxide Anion Gap BUN Creatinine Estimated GFR BUN/Creatinine Ratio Glucose POC Glucose 163 H Calcium 09/11/18 09/11/18 09/12/18 17:11 23:49 03:16 WBC RBC Hgb Hct MCV MCH MCHC RDW Plt Count Lymph % (Auto) [place] % (Auto) Eos % (Auto) Baso % (Auto) Lymph # [place] # Eos # Baso # Seg Neutrophils % Seg Neutrophils # POC ABG pH 7.517 H POC ABG pCO2 48.8 H POC ABG pO2 83 POC ABG HCO3 39.7 POC ABG Total CO2 41 POC ABG O2 Sat 97 POC ABG Base Excess 17 FiO2 50 Sodium Potassium Chloride Carbon Dioxide Anion Gap BUN Creatinine Estimated GFR BUN/Creatinine Ratio Glucose POC Glucose 202 H 163 H Calcium 09/12/18 09/12/18 09/12/18 05:30 05:30 06:07 WBC 8.6 RBC 2.36 L Hgb 7.3 L Hct 22.3 L MCV 95 MCH 31 MCHC 33 RDW 18.4 H Plt Count 212 Lymph % (Auto) 13.0 L [place] % (Auto) 9.3 H Eos % (Auto) 0.0 Baso % (Auto) 0.2 Lymph # 1.1 L [place] # 0.8 Eos # 0.0 Baso # 0.0 Seg Neutrophils % 77.5 H Seg Neutrophils # 6.7 POC ABG pH POC ABG pCO2 POC ABG pO2 POC ABG HCO3 POC ABG Total CO2 POC ABG O2 Sat POC ABG Base Excess FiO2 Sodium 148 H Potassium 3.6 Chloride 102.7 Carbon Dioxide 36 H Anion Gap 13 BUN 46 H Creatinine 0.7 Estimated GFR > 60 BUN/Creatinine Ratio 66 Glucose 152 H POC Glucose 172 H Calcium 8.8 Medications & Allergies - Medications Allergies/Adverse Reactions: Allergies No Known Allergies Allergy (Unverified 08/15/18 16:49) Home Medications: Home Medications Medication Instructions Recorded Confirmed Last Taken Type Carvedilol 6.25 mg PO BID 08/15/18 08/15/18 Unknown History DULoxetine 60 mg PO QDAY 08/15/18 08/15/18 Unknown History Gabapentin 600 mg PO Q6HR PRN 08/15/18 08/15/18 Unknown History Methylphenidate 5 mg PO TID 08/15/18 08/15/18 Unknown History Morphabond ER 60 mg PO Q12HR 08/15/18 08/15/18 Unknown History Pravastatin Sodium 10 mg PO QDAY 08/15/18 08/15/18 Unknown History Tizanidine HCl 4 mg PO Q12HR 08/15/18 08/15/18 Unknown History oxyCODONE /ACETAMINOPHEN 7.5 - 325 mg PO Q8HR 08/15/18 08/15/18 Unknown History ALBUTEROL Inhaler(NF) 90 mcg IH TID 08/29/18 08/29/18 Unknown History Omeprazole-Bicarb 40-1,100 Cap 40 mg PO DAILY 08/29/18 08/29/18 Unknown History Active Medications: Generic Name Dose Route Start Last Admin Trade Name Freq PRN Reason Stop Dose Admin Acetaminophen 650 mg 08/15/18 22:12 09/10/18 08:40 Tylenol PO 650 mg Q4H PRN Administration Pain MILD(1-3)/Fever >100.5/[place]DR[place]ON Albuterol 2.5 mg 08/17/18 17:00 Proventil IH Q3HRT PRN Shortness Of Breath Albuterol/Ipratropium 1 ampul 08/20/18 14:00 09/12/18 02:32 Duoneb *Not For Prn Use* IH Not Given Q6HRT REPLACED BY [facility] Lipase/Protease/Amylase 1 each 09/02/18 10:40 Pancresam Elizabeth 10,500 Unit FEEDTUBE PRN PRN For Clogged Feeding Tube Arformoterol Tartrate 15 mcg 08/18/18 20:00 09/11/18 19:58 Brovana Nebu IH 15 mcg Q12HRT LAMAR Administration Budesonide 0.5 mg 08/18/18 20:00 09/11/18 19:58 Pulmicort IH 0.5 mg Q12HRT LAMAR Administration Carvedilol 3.125 mg 08/26/18 15:19 09/11/18 21:50 Coreg PO 3.125 mg BID LAMAR Administration Famotidine 20 mg 09/05/18 10:00 09/11/18 21:51 Pepcid PO 20 mg BID LAMAR Administration Fondaparinux 7.5 mg 09/07/18 10:00 09/11/18 09:02 Arixtra SUB-Q 7.5 mg DAILY LAMAR Administration Hydralazine HCl 10 mg 08/19/18 13:59 09/10/18 19:32 Apresoline IV 10 mg Q3H PRN Administration Hydralazine HCl 25 mg 09/01/18 14:00 09/12/18 05:54 Apresoline PO 25 mg Q8HR LAMAR Administration Hydromorphone HCl 1 mg 09/06/18 10:38 09/11/18 07:36 Dilaudid IV 1 mg Q4H PRN Administration Pain , Severe (7-10) Hydromorphone HCl 2 mg 09/06/18 12:00 09/12/18 05:54 Dilaudid PO 2 mg Q6HR LAMAR Administration Hydrophilic Ointment 1 applic 08/15/18 21:55 09/01/18 09:07 Vaseline Lip Therapy TP 1 applic Q2HR PRN Administration Dry Lips Fentanyl Citrate 2,000 mcg in 100 mls @ 4.765 mls/hr 09/02/18 11:00 09/12/18 02:05 Fentanyl Drip Premix IV 4 mcg/kg/hr TITR LAMAR 19.06 mls/hr Administration Protocol 1 MCG/KG/HR Insulin Human Lispro 0 unit 04/07/19 18:00 09/12/18 06:13 Humalog SUB-Q 2 unit Q6HR LAMAR Administration Protocol Metoclopramide HCl 5 mg 08/15/18 22:50 Reglan IV Q6H PRN Nausea And Vomiting Midazolam HCl 1 mg 09/07/18 09:23 09/11/18 16:05 Versed IV 1 mg Q4H PRN Administration AGITATION Ondansetron HCl 4 mg 08/15/18 22:12 08/31/18 17:52 Zofran IV 4 mg Q8H PRN Administration Nausea And Vomiting Potassium Chloride 20 meq 09/10/18 10:00 09/11/18 09:02 Potassium Chloride FEEDTUBE 20 meq QDAY LAMAR Administration Quetiapine Fumarate 200 mg 09/04/18 15:00 09/11/18 21:51 Seroquel PO 200 mg BID LAMAR Administration Senna/Docusate Sodium 2 tab 09/06/18 11:00 09/11/18 21:51 Senokot S PO Not Given BID LAMAR Simple Syrup 15 ml 09/02/18 11:24 Simple Syrup FEEDTUBE PRN PRN Hypoglycemia Simple Syrup 30 ml 09/02/18 11:24 Simple Syrup FEEDTUBE PRN PRN Hypoglycemia Sodium Bicarbonate 325 mg 09/02/18 10:40 Sodium Bicarbonate FEEDTUBE PRN PRN For Clogged Feeding Tube Sodium Chloride 10 ml 08/15/18 22:12 09/07/18 22:25 Sodium Chloride Flush Syringe 10 Ml IV 10 ml PRN PRN Administration LINE FLUSH
[2018-09-12] MEDS: BROVANA NEBU IH SCH ×2 (08:08→19:18)
[2018-09-12] MEDS: PULMICORT IH SCH ×2 (08:08→19:18)
[2018-09-12] MEDS: VERSED IV PRN ×2 (09:00→17:34)
[2018-09-12] MEDS: ARIXTRA SUB-Q SCH (09:09)
[2018-09-12] MEDS: POTASSIUM CHLORIDE FEEDTUBE SCH (09:10)
[2018-09-12] MEDS: PEPCID PO SCH ×2 (09:10→22:05)
[2018-09-12] MEDS: COREG PO SCH ×2 (09:10→23:42)
[2018-09-12] MEDS: SENOKOT S PO SCH ×2 (09:10→22:04)
[2018-09-12] MEDS ORDERED: LASIX IV ONE (10:00)
[2018-09-12] MEDS ORDERED: D5W 1,000 ML IV SCH (10:00)
--- NOTE | 2018-09-12 10:05 | Progress Note ---
Assessment and Plan Severe sepsis Intermittent fevers and leukocytosis, resolved Fungemia s/p antifungal therapy Acute hypoxic-hypercapnic respiratory failure on MVS, re-intubated h/o COPD Acute kidney injury, resolved Acute encephalopathy( toxic-metabolic) Aspiration pneumonia/CAP New onset cardiomyopathy, LVEF 25-30% this admission Previous echo 03/30/2016 at [facility] revealed normal LVEF Previous stress MPI 03/29/2016 at [facility] revealed no ischemia Abnormal ECG showing LBBB, chronic Anemia s/p PRBC -Recent EGD at [facility] 08/08/2018 revealing irregular Z line, gastritis and small hiatal hernia Recent colonoscopy at [facility] 08/08/2018 revealing sigmoid polyp, transverse colon polyps, inflamed hemorrhoids and diverticulosis E.coli/Staph pneumonia Thrombocytopenia resolved Hypernatremia, resolved Hypokalemia, resolved -Continue with MVS -VAP bundle addressed -Aspiration precautions -Wean supplemental oxygen and PEEP to keep O2 sats 88-90% -ABG and CXR -CXR in the next 48 hours, if persistent significant pleural effusions will plan for therapeutic thoracentesis -Antibiotics/antifungals to complete course per ID -OGT for free water, medications and nutritional support. - Agitation and analgesia management -Monitor renal indices while on diuretics. -Monitor hemodynamics -Cardioprotective measures -Stress ulcer prophylaxis -CT head -Aspiration precautions -Accuchecks with glycemic control. Target glucose of 140-180 mg/dL -Continue bronchodilators with pulmonary hygiene per RT -Maintenance of sleep -wake cycle -Mobility program -Agitation and analgesia -Influenza and pneumonia vaccination per protocol ..care plan discussed at length with RN/RT at the bedside Discussed with the at the bedside. Updated him and care plan discussed. He is agreeable to trach placement. Once PEEP is down to 10, general surgery will place tracheostomy for chronic weaning PROGNOSIS :GUARDED CONDITION: CRITICAL CODE STATUS: FULL CODE The high probability of a clinically significant, sudden or life-threatening deterioration of the [respiratory, cardiovascular, renal] system(s) required my full and direct attention, intervention and personal management. The aggregate critical care time was [35] minutes without overlap. Time includes spent on; [x] Data Review and interpretation [x] Patient assessment and monitoring of vital signs [x] Documentation [x] Medication orders and management Subjective Date of service: 09/12/18 Principal diagnosis: anemia Interval history: Follow up: Aspiration PNA, Abnormal CXR, Hypotension, Acute renal failure, Acute encephaloapthy, Acute hypoxemic respiratory failure on MVS Seen and examined. Vitals, labs, medications, chart and imaging reviewed. 24 hours events reviewed. No fevers, no vomiting, agitation much improved. More awake and alert, tracking voice, obeying simple commands though inconsistently Remains orally intubated, critically ill. On fentanyl She remains on PEEP of 12, FIO2 60%, but weaning currently at the bedside. Objective Vital Signs - 12hr 09/11/18 09/11/18 09/11/18 22:16 22:26 22:30 Temperature Pulse Rate 76 76 77 Pulse Rate [ Anterior Bilateral Throughout] Pulse Rate [ From Monitor] Respiratory 16 19 23 Rate Respiratory Rate [Anterior Bilateral Throughout] Blood Pressure 109/54 109/54 109/54 O2 Sat by Pulse 94 95 95 Oximetry 09/11/18 09/11/18 09/11/18 22:46 22:49 23:00 Temperature Pulse Rate 76 76 75 Pulse Rate [ Anterior Bilateral Throughout] Pulse Rate [ From Monitor] Respiratory 20 26 H Rate Respiratory Rate [Anterior Bilateral Throughout] Blood Pressure 109/54 109/54 107/53 O2 Sat by Pulse 95 95 93 Oximetry 09/11/18 09/11/18 09/11/18 23:13 23:16 23:30 Temperature 98.8 F Pulse Rate 76 76 Pulse Rate [ Anterior Bilateral Throughout] Pulse Rate [ From Monitor] Respiratory 17 14 Rate Respiratory Rate [Anterior Bilateral Throughout] Blood Pressure 107/53 107/53 O2 Sat by Pulse 95 94 Oximetry 09/11/18 09/12/18 09/12/18 23:46 00:00 00:16 Temperature Pulse Rate 79 78 78 Pulse Rate [ Anterior Bilateral Throughout] Pulse Rate [ 80 From Monitor] Respiratory 14 16 14 Rate Respiratory Rate [Anterior Bilateral Throughout] Blood Pressure 107/53 118/58 118/58 O2 Sat by Pulse 95 93 95 Oximetry 09/12/18 09/12/18 09/12/18 00:30 00:46 01:00 Temperature Pulse Rate 79 81 78 Pulse Rate [ Anterior Bilateral Throughout] Pulse Rate [ From Monitor] Respiratory 12 18 17 Rate Respiratory Rate [Anterior Bilateral Throughout] Blood Pressure 118/58 118/58 118/58 O2 Sat by Pulse 95 95 96 Oximetry 09/12/18 09/12/18 09/12/18 01:16 01:30 01:46 Temperature Pulse Rate 79 79 80 Pulse Rate [ Anterior Bilateral Throughout] Pulse Rate [ From Monitor] Respiratory 16 14 15 Rate Respiratory Rate [Anterior Bilateral Throughout] Blood Pressure 135/66 135/66 135/66 O2 Sat by Pulse 95 96 95 Oximetry 09/12/18 09/12/18 09/12/18 02:00 02:15 02:30 Temperature Pulse Rate 82 81 82 Pulse Rate [ 84 Anterior Bilateral Throughout] Pulse Rate [ From Monitor] Respiratory 16 16 19 Rate Respiratory 24 Rate [Anterior Bilateral Throughout] Blood Pressure 133/69 133/69 133/69 O2 Sat by Pulse 93 96 96 Oximetry 09/12/18 09/12/18 09/12/18 02:46 03:00 03:16 Temperature Pulse Rate 82 80 81 Pulse Rate [ Anterior Bilateral Throughout] Pulse Rate [ From Monitor] Respiratory 14 17 14 Rate Respiratory Rate [Anterior Bilateral Throughout] Blood Pressure 133/69 146/66 146/66 O2 Sat by Pulse 95 93 96 Oximetry 09/12/18 09/12/18 09/12/18 03:30 03:46 03:56 Temperature Pulse Rate 80 80 79 Pulse Rate [ Anterior Bilateral Throughout] Pulse Rate [ From Monitor] Respiratory 26 H 13 Rate Respiratory Rate [Anterior Bilateral Throughout] Blood Pressure 146/66 146/66 146/66 O2 Sat by Pulse 96 96 95 Oximetry 09/12/18 09/12/18 09/12/18 04:00 04:16 04:32 Temperature 100.7 F H Pulse Rate 78 80 77 Pulse Rate [ Anterior Bilateral Throughout] Pulse Rate [ 81 From Monitor] Respiratory 16 15 10 L Rate Respiratory Rate [Anterior Bilateral Throughout] Blood Pressure 142/64 142/64 142/64 O2 Sat by Pulse 94 95 95 Oximetry 09/12/18 09/12/18 09/12/18 04:46 05:00 05:16 Temperature Pulse Rate 80 72 70 Pulse Rate [ Anterior Bilateral Throughout] Pulse Rate [ From Monitor] Respiratory 16 22 22 Rate Respiratory Rate [Anterior Bilateral Throughout] Blood Pressure 142/64 118/45 O2 Sat by Pulse 92 93 96 Oximetry 09/12/18 09/12/18 09/12/18 05:30 05:46 05:54 Temperature Pulse Rate 75 75 74 Pulse Rate [ Anterior Bilateral Throughout] Pulse Rate [ From Monitor] Respiratory 25 H 19 Rate Respiratory Rate [Anterior Bilateral Throughout] Blood Pressure 118/45 118/45 118/45 O2 Sat by Pulse 95 96 Oximetry 09/12/18 09/12/18 09/12/18 06:00 06:16 06:30 Temperature Pulse Rate 77 79 78 Pulse Rate [ Anterior Bilateral Throughout] Pulse Rate [ From Monitor] Respiratory 15 25 H 22 Rate Respiratory Rate [Anterior Bilateral Throughout] Blood Pressure 130/52 130/52 130/52 O2 Sat by Pulse 94 97 95 Oximetry 09/12/18 09/12/18 09/12/18 06:46 07:00 07:16 Temperature Pulse Rate 77 85 79 Pulse Rate [ Anterior Bilateral Throughout] Pulse Rate [ From Monitor] Respiratory 20 18 17 Rate Respiratory Rate [Anterior Bilateral Throughout] Blood Pressure 130/52 105/71 105/71 O2 Sat by Pulse 96 93 95 Oximetry 09/12/18 09/12/18 09/12/18 07:30 07:46 08:00 Temperature 99.7 F H Pulse Rate 81 78 82 Pulse Rate [ Anterior Bilateral Throughout] Pulse Rate [ 85 From Monitor] Respiratory 21 14 14 Rate Respiratory Rate [Anterior Bilateral Throughout] Blood Pressure 130/52 130/52 124/58 O2 Sat by Pulse 96 96 94 Oximetry 09/12/18 09/12/18 09/12/18 08:05 08:08 08:16 Temperature Pulse Rate 81 77 Pulse Rate [ 82 Anterior Bilateral Throughout] Pulse Rate [ From Monitor] Respiratory 14 Rate Respiratory 28 H Rate [Anterior Bilateral Throughout] Blood Pressure 124/58 124/58 O2 Sat by Pulse 99 99 Oximetry 09/12/18 09/12/18 09/12/18 08:30 08:31 09:10 Temperature Pulse Rate 75 75 Pulse Rate [ 81 Anterior Bilateral Throughout] Pulse Rate [ From Monitor] Respiratory 25 H Rate Respiratory 27 H Rate [Anterior Bilateral Throughout] Blood Pressure 124/58 124/58 O2 Sat by Pulse 99 Oximetry 09/12/18 09:51 Temperature Pulse Rate 71 Pulse Rate [ Anterior Bilateral Throughout] Pulse Rate [ From Monitor] Respiratory Rate Respiratory Rate [Anterior Bilateral Throughout] Blood Pressure 135/60 O2 Sat by Pulse 97 Oximetry Constitutional: appears uncomfortable, other (elderly looking CF, normocephalic and atraumatic) Eyes: non-icteric ENT: oropharynx moist, other (ETT 23 cm MARTHA) Neck: supple, no lymphadenopathy, no JVD, other (no thyromegaly) Effort: mildly labored Ascultation: Bilateral: diminished breath sounds, rales, rhonchi Percussion: Bilateral: not dull Cardiovascular: regular rate and rhythm Gastrointestinal: normoactive bowel sounds, soft, non-tender, non-distended Integumentary: normal Extremities: no cyanosis, no ischemia or petechiae, edema (Left lower extremity) Neurologic: non-focal exam (grossly), pupils equal and round, CN II-XII normal, motor strength normal and Psychiatric: other (unable to assess) CBC and BMP: 09/21/18 04:35 09/22/18 04:11 ABG, PT/INR, D-dimer: ABG POC ABG pH 7.517 (7.35-7.45) H 09/12/18 03:16 POC ABG pCO2 48.8 (35-45) H 09/12/18 03:16 POC ABG pO2 83 (80-105) 09/12/18 03:16 POC ABG HCO3 39.7 (22-26 mml/L) 09/12/18 03:16 POC ABG Total CO2 41 (23-27mmol/L) 09/12/18 03:16 POC ABG O2 Sat 97 09/12/18 03:16 PT/INR, D-dimer D-Dimer 2768.33 ng/mlDDU (0-234) H 08/15/18 18:31 Abnormal lab findings: Abnormal Labs 08/15/18 08/15/18 08/15/18 17:52 17:52 17:52 WBC 12.7 H RBC 3.25 L Hgb Hct RDW Plt Count Lymph % (Auto) Menard % (Auto) Lymph # Menard # Seg Neutrophils % Seg Neuts % (Manual) Lymphocytes % (Manual) 6.0 L Nucleated RBC % Seg Neutrophils # Seg Neutrophils # Man Lymphocytes # (Manual) 0.8 L D-Dimer POC ABG pH POC ABG pCO2 POC ABG pO2 VBG pH Sodium Potassium 3.4 L Chloride 94.6 L Carbon Dioxide 17 L BUN 67 H Creatinine 3.5 H Glucose 131 H POC Glucose Hemoglobin A1c Lactic Acid 5.20 H* Calcium 7.6 L Phosphorus Magnesium Iron TIBC AST 887 H ALT 316 H Troponin T C-Reactive Protein Total Protein Albumin 3.1 L Triglycerides LDL Cholesterol Direct HDL Cholesterol Urine WBC (Auto) Vancomycin Trough Salicylates Acetaminophen % CD3 Cells % CD19 Cells Absolute CD19 Count Miscellaneous Test Crossmatch 08/15/18 08/15/18 08/15/18 18:11 18:19 18:31 WBC RBC Hgb Hct RDW Plt Count Lymph % (Auto) [place] % (Auto) Lymph # [place] # Seg Neutrophils % Seg Neuts % (Manual) Lymphocytes % (Manual) Nucleated RBC % Seg Neutrophils # Seg Neutrophils # Man Lymphocytes # (Manual) D-Dimer 2768.33 H POC ABG pH 7.173 L POC ABG pCO2 47.8 H POC ABG pO2 177 H VBG pH 7.187 L* Sodium Potassium Chloride Carbon Dioxide BUN Creatinine Glucose POC Glucose Hemoglobin A1c Lactic Acid Calcium Phosphorus Magnesium Iron TIBC AST ALT Troponin T C-Reactive Protein Total Protein Albumin Triglycerides LDL Cholesterol Direct HDL Cholesterol Urine WBC (Auto) Vancomycin Trough Salicylates Acetaminophen % CD3 Cells % CD19 Cells Absolute CD19 Count Miscellaneous Test Crossmatch 08/15/18 08/15/18 08/15/18 18:31 19:14 19:14 WBC RBC Hgb Hct RDW Plt Count Lymph % (Auto) [place] % (Auto) Lymph # [place] # Seg Neutrophils % Seg Neuts % (Manual) Lymphocytes % (Manual) Nucleated RBC % Seg Neutrophils # Seg Neutrophils # Man Lymphocytes # (Manual) D-Dimer POC ABG pH POC ABG pCO2 POC ABG pO2 VBG pH Sodium Potassium Chloride Carbon Dioxide BUN Creatinine Glucose POC Glucose Hemoglobin A1c Lactic Acid 2.70 H* Calcium Phosphorus Magnesium Iron TIBC AST ALT Troponin T 0.454 H* C-Reactive Protein Total Protein Albumin Triglycerides 356 H LDL Cholesterol Direct 4 L HDL Cholesterol 10 L Urine WBC (Auto) Vancomycin Trough Salicylates < 0.3 L Acetaminophen % CD3 Cells % CD19 Cells Absolute CD19 Count Miscellaneous Test Crossmatch 08/15/18 08/15/18 08/15/18 19:14 19:15 23:09 WBC RBC Hgb Hct RDW Plt Count Lymph % (Auto) [place] % (Auto) Lymph # [place] # Seg Neutrophils % Seg Neuts % (Manual) Lymphocytes % (Manual) Nucleated RBC % Seg Neutrophils # Seg Neutrophils # Man Lymphocytes # (Manual) D-Dimer POC ABG pH POC ABG pCO2 POC ABG pO2 VBG pH Sodium Potassium Chloride Carbon Dioxide BUN Creatinine Glucose POC Glucose Hemoglobin A1c Lactic Acid 3.20 H* Calcium Phosphorus Magnesium Iron TIBC AST ALT Troponin T C-Reactive Protein Total Protein Albumin Triglycerides LDL Cholesterol Direct HDL Cholesterol Urine WBC (Auto) 17.0 H Vancomycin Trough Salicylates Acetaminophen < 5.0 L % CD3 Cells % CD19 Cells Absolute CD19 Count Miscellaneous Test Crossmatch 08/15/18 08/16/18 08/16/18 23:09 01:41 05:38 WBC RBC 3.07 L Hgb 9.8 L Hct 28.7 L RDW Plt Count Lymph % (Auto) [place] % (Auto) Lymph # [place]ard # Seg Neutrophils % Seg Neuts % (Manual) 84.0 H Lymphocytes % (Manual) 6.0 L Nucleated RBC % 4.0 H Seg Neutrophils # Seg Neutrophils # Man Lymphocytes # (Manual) 0.5 L D-Dimer POC ABG pH 7.323 L POC ABG pCO2 34.7 L POC ABG pO2 78 L VBG pH Sodium Potassium Chloride Carbon Dioxide BUN Creatinine Glucose POC Glucose Hemoglobin A1c 6.4 H Lactic Acid Calcium Phosphorus Magnesium Iron TIBC AST ALT Troponin T C-Reactive Protein Total Protein Albumin Triglycerides LDL Cholesterol Direct HDL Cholesterol Urine WBC (Auto) Vancomycin Trough Salicylates Acetaminophen % CD3 Cells % CD19 Cells Absolute CD19 Count Miscellaneous Test Crossmatch 08/16/18 08/16/18 08/17/18 05:38 22:43 03:42 WBC RBC Hgb Hct RDW Plt Count Lymph % (Auto) [place] % (Auto) Lymph # [place] # Seg Neutrophils % Seg Neuts % (Manual) Lymphocytes % (Manual) Nucleated RBC % Seg Neutrophils # Seg Neutrophils # Man Lymphocytes # (Manual) D-Dimer POC ABG pH POC ABG pCO2 POC ABG pO2 VBG pH Sodium Potassium 2.9 L* 3.1 L 2.9 L* Chloride 108.8 H 111.9 H Carbon Dioxide 17 L 19 L 21 L BUN 62 H 40 H 33 H Creatinine 2.0 H Glucose 139 H 145 H POC Glucose Hemoglobin A1c Lactic Acid Calcium 7.8 L 8.3 L Phosphorus 1.50 L Magnesium Iron TIBC AST 619 H ALT 353 H Troponin T C-Reactive Protein Total Protein 6.1 L Albumin 2.8 L Triglycerides LDL Cholesterol Direct HDL Cholesterol Urine WBC (Auto) Vancomycin Trough Salicylates Acetaminophen % CD3 Cells % CD19 Cells Absolute CD19 Count Miscellaneous Test Crossmatch 08/17/18 08/17/18 08/18/18 11:02 16:42 03:28 WBC RBC Hgb Hct RDW Plt Count Lymph % (Auto) [place] % (Auto) Lymph # [place] # Seg Neutrophils % Seg Neuts % (Manual) Lymphocytes % (Manual) Nucleated RBC % Seg Neutrophils # Seg Neutrophils # Man Lymphocytes # (Manual) D-Dimer POC ABG pH 7.483 H 7.499 H POC ABG pCO2 POC ABG pO2 VBG pH Sodium 147 H Potassium 3.2 L Chloride 115.8 H Carbon Dioxide BUN 23 H Creatinine Glucose 121 H POC Glucose Hemoglobin A1c Lactic Acid Calcium 8.1 L Phosphorus 2.30 L D Magnesium Iron TIBC AST ALT Troponin T C-Reactive Protein Total Protein Albumin Triglycerides LDL Cholesterol Direct HDL Cholesterol Urine WBC (Auto) Vancomycin Trough Salicylates Acetaminophen % CD3 Cells % CD19 Cells Absolute CD19 Count Miscellaneous Test Crossmatch 08/18/18 08/18/18 08/18/18 04:10 13:39 13:39 WBC RBC Hgb Hct RDW Plt Count Lymph % (Auto) [place] % (Auto) Lymph # [place] # Seg Neutrophils % Seg Neuts % (Manual) Lymphocytes % (Manual) Nucleated RBC % Seg Neutrophils # Seg Neutrophils # Man Lymphocytes # (Manual) D-Dimer POC ABG pH POC ABG pCO2 POC ABG pO2 VBG pH Sodium 147 H Potassium 3.3 L Chloride 111.9 H Carbon Dioxide BUN 21 H Creatinine Glucose 113 H POC Glucose Hemoglobin A1c Lactic Acid Calcium Phosphorus 1.50 L D Magnesium Iron TIBC AST ALT Troponin T 0.317 H* D C-Reactive Protein 10.70 H Total Protein Albumin Triglycerides LDL Cholesterol Direct HDL Cholesterol Urine WBC (Auto) Vancomycin Trough Salicylates Acetaminophen % CD3 Cells % CD19 Cells Absolute CD19 Count Miscellaneous Test Crossmatch 08/18/18 08/19/18 08/19/18 16:51 03:47 04:15 WBC RBC Hgb Hct RDW Plt Count Lymph % (Auto) [place] % (Auto) Lymph # [place] # Seg Neutrophils % Seg Neuts % (Manual) Lymphocytes % (Manual) Nucleated RBC % Seg Neutrophils # Seg Neutrophils # Man Lymphocytes # (Manual) D-Dimer POC ABG pH 7.454 H 7.482 H POC ABG pCO2 POC ABG pO2 65 L VBG pH Sodium 154 H Potassium 3.3 L Chloride 115.1 H Carbon Dioxide BUN 19 H Creatinine Glucose 117 H POC Glucose Hemoglobin A1c Lactic Acid Calcium 7.8 L Phosphorus Magnesium Iron TIBC AST ALT Troponin T C-Reactive Protein Total Protein Albumin Triglycerides LDL Cholesterol Direct HDL Cholesterol Urine WBC (Auto) Vancomycin Trough Salicylates Acetaminophen % CD3 Cells % CD19 Cells Absolute CD19 Count Miscellaneous Test Crossmatch 08/19/18 08/19/18 08/20/18 14:32 16:18 03:51 WBC RBC Hgb Hct RDW Plt Count Lymph % (Auto) [place] % (Auto) Lymph # [place]ard # Seg Neutrophils % Seg Neuts % (Manual) Lymphocytes % (Manual) Nucleated RBC % Seg Neutrophils # Seg Neutrophils # Man Lymphocytes # (Manual) D-Dimer POC ABG pH 7.483 H POC ABG pCO2 33.4 L POC ABG pO2 51 L 74 L VBG pH Sodium Potassium Chloride Carbon Dioxide BUN Creatinine Glucose POC Glucose Hemoglobin A1c Lactic Acid Calcium Phosphorus Magnesium Iron TIBC AST ALT Troponin T C-Reactive Protein Total Protein Albumin Triglycerides LDL Cholesterol Direct HDL Cholesterol Urine WBC (Auto) Vancomycin Trough Salicylates Acetaminophen % CD3 Cells 44 L % CD19 Cells 41 H Absolute CD19 Count 1290 H Miscellaneous Test Crossmatch 08/20/18 08/21/18 08/21/18 05:25 03:54 05:45 WBC 24.1 H RBC 2.83 L Hgb 8.8 L Hct 26.7 L RDW 15.7 H Plt Count 127 L Lymph % (Auto) [place] % (Auto) Lymph # [place] # Seg Neutrophils % Seg Neuts % (Manual) 94.0 H Lymphocytes % (Manual) 4.0 L Nucleated RBC % 1.0 H Seg Neutrophils # Seg Neutrophils # Man 22.7 H Lymphocytes # (Manual) 1.0 L D-Dimer POC ABG pH POC ABG pCO2 31.9 L POC ABG pO2 66 L VBG pH Sodium 146 H D Potassium Chloride 111.2 H Carbon Dioxide BUN 24 H Creatinine Glucose 141 H POC Glucose Hemoglobin A1c Lactic Acid Calcium 8.1 L Phosphorus Magnesium Iron TIBC AST 65 H ALT 104 H Troponin T C-Reactive Protein Total Protein 6.2 L Albumin 2.6 L Triglycerides LDL Cholesterol Direct HDL Cholesterol Urine WBC (Auto) Vancomycin Trough Salicylates Acetaminophen % CD3 Cells % CD19 Cells Absolute CD19 Count Miscellaneous Test Crossmatch 08/21/18 08/22/18 08/22/18 05:45 06:20 06:45 WBC RBC Hgb Hct RDW Plt Count Lymph % (Auto) [place] % (Auto) Lymph # [place] # Seg Neutrophils % Seg Neuts % (Manual) Lymphocytes % (Manual) Nucleated RBC % Seg Neutrophils # Seg Neutrophils # Man Lymphocytes # (Manual) D-Dimer POC ABG pH POC ABG pCO2 32.9 L POC ABG pO2 VBG pH Sodium Potassium 3.5 L Chloride 109.4 H 112.4 H Carbon Dioxide 21 L 20 L BUN 50 H 61 H Creatinine 2.0 H D 1.9 H Glucose 144 H 154 H POC Glucose Hemoglobin A1c Lactic Acid Calcium 7.6 L 7.8 L Phosphorus Magnesium Iron TIBC AST ALT Troponin T C-Reactive Protein Total Protein 5.3 L Albumin 2.1 L Triglycerides LDL Cholesterol Direct HDL Cholesterol Urine WBC (Auto) Vancomycin Trough Salicylates Acetaminophen % CD3 Cells % CD19 Cells Absolute CD19 Count Miscellaneous Test Crossmatch 08/22/18 08/22/18 08/22/18 06:45 15:29 18:40 WBC RBC Hgb Hct RDW Plt Count Lymph % (Auto) [place] % (Auto) Lymph # [place] # Seg Neutrophils % Seg Neuts % (Manual) Lymphocytes % (Manual) Nucleated RBC % Seg Neutrophils # Seg Neutrophils # Man Lymphocytes # (Manual) D-Dimer POC ABG pH POC ABG pCO2 POC ABG pO2 VBG pH Sodium Potassium Chloride Carbon Dioxide BUN Creatinine Glucose POC Glucose 169 H Hemoglobin A1c Lactic Acid Calcium Phosphorus Magnesium Iron TIBC AST ALT Troponin T C-Reactive Protein 4.70 H Total Protein Albumin Triglycerides 197 H LDL Cholesterol Direct HDL Cholesterol Urine WBC (Auto) Vancomycin Trough Salicylates Acetaminophen % CD3 Cells % CD19 Cells Absolute CD19 Count Miscellaneous Test Crossmatch 08/23/18 08/23/18 08/23/18 03:59 21:19 Unknown WBC 12.1 H RBC 2.29 L Hgb 7.1 L Hct 21.7 L RDW 15.7 H Plt Count 106 L Lymph % (Auto) [place]ard % (Auto) Lymph # [place]ard # Seg Neutrophils % Seg Neuts % (Manual) 92.0 H Lymphocytes % (Manual) 4.0 L Nucleated RBC % Seg Neutrophils # Seg Neutrophils # Man 11.1 H Lymphocytes # (Manual) 0.5 L D-Dimer POC ABG pH 7.306 L POC ABG pCO2 31.3 L POC ABG pO2 119 H 75 L VBG pH Sodium Potassium Chloride Carbon Dioxide BUN Creatinine Glucose POC Glucose Hemoglobin A1c Lactic Acid Calcium Phosphorus Magnesium Iron TIBC AST ALT Troponin T C-Reactive Protein Total Protein Albumin Triglycerides LDL Cholesterol Direct HDL Cholesterol Urine WBC (Auto) Vancomycin Trough Salicylates Acetaminophen % CD3 Cells % CD19 Cells Absolute CD19 Count Miscellaneous Test Crossmatch 08/23/18 08/24/18 08/24/18 Unknown 04:18 08:30 WBC 12.8 H RBC 2.24 L Hgb 7.0 L Hct 21.1 L RDW Plt Count Lymph % (Auto) [place] % (Auto) Lymph # [place]ard # Seg Neutrophils % Seg Neuts % (Manual) 93.0 H Lymphocytes % (Manual) 6.0 L Nucleated RBC % Seg Neutrophils # Seg Neutrophils # Man 11.9 H Lymphocytes # (Manual) 0.8 L D-Dimer POC ABG pH POC ABG pCO2 POC ABG pO2 78 L VBG pH Sodium Potassium Chloride 115.7 H Carbon Dioxide 21 L BUN 64 H Creatinine 2.0 H Glucose 149 H POC Glucose Hemoglobin A1c Lactic Acid Calcium 7.5 L Phosphorus Magnesium Iron TIBC AST ALT Troponin T C-Reactive Protein Total Protein 4.8 L Albumin 2.0 L Triglycerides LDL Cholesterol Direct HDL Cholesterol Urine WBC (Auto) Vancomycin Trough Salicylates Acetaminophen % CD3 Cells % CD19 Cells Absolute CD19 Count Miscellaneous Test Crossmatch 08/24/18 08/24/18 08/24/18 08:30 17:44 18:28 WBC RBC Hgb Hct RDW Plt Count Lymph % (Auto) [place] % (Auto) Lymph # [place] # Seg Neutrophils % Seg Neuts % (Manual) Lymphocytes % (Manual) Nucleated RBC % Seg Neutrophils # Seg Neutrophils # Man Lymphocytes # (Manual) D-Dimer POC ABG pH 7.474 H POC ABG pCO2 POC ABG pO2 61 L VBG pH Sodium Potassium Chloride 108.3 H Carbon Dioxide 20 L BUN 65 H Creatinine 2.0 H Glucose 167 H POC Glucose 164 H Hemoglobin A1c Lactic Acid Calcium 7.7 L Phosphorus Magnesium Iron TIBC AST ALT Troponin T C-Reactive Protein Total Protein 5.3 L Albumin 2.2 L Triglycerides LDL Cholesterol Direct HDL Cholesterol Urine WBC (Auto) Vancomycin Trough Salicylates Acetaminophen % CD3 Cells % CD19 Cells Absolute CD19 Count Miscellaneous Test Crossmatch 08/25/18 08/25/18 08/25/18 03:35 05:20 05:20 WBC RBC Hgb 6.7 L Hct 21.0 L RDW Plt Count Lymph % (Auto) [place] % (Auto) Lymph # [place] # Seg Neutrophils % Seg Neuts % (Manual) Lymphocytes % (Manual) Nucleated RBC % Seg Neutrophils # Seg Neutrophils # Man Lymphocytes # (Manual) D-Dimer POC ABG pH POC ABG pCO2 POC ABG pO2 79 L VBG pH Sodium Potassium Chloride Carbon Dioxide 21 L BUN 71 H Creatinine 3.1 H D Glucose 171 H POC Glucose Hemoglobin A1c Lactic Acid Calcium 7.5 L Phosphorus Magnesium Iron TIBC AST ALT Troponin T C-Reactive Protein Total Protein Albumin Triglycerides LDL Cholesterol Direct HDL Cholesterol Urine WBC (Auto) Vancomycin Trough Salicylates Acetaminophen % CD3 Cells % CD19 Cells Absolute CD19 Count Miscellaneous Test Crossmatch 08/25/18 08/25/18 08/25/18 05:20 08:52 12:42 WBC RBC Hgb Hct RDW Plt Count Lymph % (Auto) [place] % (Auto) Lymph # [place] # Seg Neutrophils % Seg Neuts % (Manual) Lymphocytes % (Manual) Nucleated RBC % Seg Neutrophils # Seg Neutrophils # Man Lymphocytes # (Manual) D-Dimer POC ABG pH POC ABG pCO2 POC ABG pO2 VBG pH Sodium Potassium Chloride Carbon Dioxide BUN Creatinine Glucose POC Glucose 166 H Hemoglobin A1c Lactic Acid Calcium Phosphorus Magnesium Iron TIBC AST ALT Troponin T C-Reactive Protein 5.00 H Total Protein Albumin Triglycerides LDL Cholesterol Direct HDL Cholesterol Urine WBC (Auto) Vancomycin Trough Salicylates Acetaminophen % CD3 Cells % CD19 Cells Absolute CD19 Count Miscellaneous Test Crossmatch See Detail 08/25/18 08/26/18 08/26/18 18:05 00:13 04:53 WBC RBC Hgb Hct RDW Plt Count Lymph % (Auto) [place] % (Auto) Lymph # [place]ard # Seg Neutrophils % Seg Neuts % (Manual) Lymphocytes % (Manual) Nucleated RBC % Seg Neutrophils # Seg Neutrophils # Man Lymphocytes # (Manual) D-Dimer POC ABG pH POC ABG pCO2 30.9 L POC ABG pO2 70 L VBG pH Sodium Potassium Chloride Carbon Dioxide BUN Creatinine Glucose POC Glucose 121 H 164 H Hemoglobin A1c Lactic Acid Calcium Phosphorus Magnesium Iron TIBC AST ALT Troponin T C-Reactive Protein Total Protein Albumin Triglycerides LDL Cholesterol Direct HDL Cholesterol Urine WBC (Auto) Vancomycin Trough Salicylates Acetaminophen % CD3 Cells % CD19 Cells Absolute CD19 Count Miscellaneous Test Crossmatch 08/26/18 08/26/18 08/26/18 05:42 06:00 06:00 WBC RBC 2.62 L Hgb 7.7 L Hct 23.0 L RDW 22.0 H Plt Count Lymph % (Auto) 6.3 L [place] % (Auto) Lymph # 0.7 L [place] # Seg Neutrophils % 88.1 H Seg Neuts % (Manual) Lymphocytes % (Manual) Nucleated RBC % Seg Neutrophils # 9.6 H Seg Neutrophils # Man Lymphocytes # (Manual) D-Dimer POC ABG pH POC ABG pCO2 POC ABG pO2 VBG pH Sodium Potassium Chloride Carbon Dioxide 21 L BUN 70 H Creatinine 3.3 H Glucose 146 H POC Glucose 149 H Hemoglobin A1c Lactic Acid Calcium 8.0 L Phosphorus Magnesium Iron TIBC AST ALT Troponin T C-Reactive Protein Total Protein Albumin Triglycerides LDL Cholesterol Direct HDL Cholesterol Urine WBC (Auto) Vancomycin Trough Salicylates Acetaminophen % CD3 Cells % CD19 Cells Absolute CD19 Count Miscellaneous Test Crossmatch 08/26/18 08/26/18 08/27/18 11:37 23:54 04:35 WBC RBC 2.50 L Hgb 7.6 L Hct 22.3 L RDW 21.8 H Plt Count Lymph % (Auto) 7.3 L [place] % (Auto) Lymph # 0.7 L [place] # Seg Neutrophils % 85.6 H Seg Neuts % (Manual) Lymphocytes % (Manual) Nucleated RBC % Seg Neutrophils # 8.6 H Seg Neutrophils # Man Lymphocytes # (Manual) D-Dimer POC ABG pH POC ABG pCO2 POC ABG pO2 VBG pH Sodium Potassium Chloride Carbon Dioxide BUN Creatinine Glucose POC Glucose 183 H 150 H Hemoglobin A1c Lactic Acid Calcium Phosphorus Magnesium Iron TIBC AST ALT Troponin T C-Reactive Protein Total Protein Albumin Triglycerides LDL Cholesterol Direct HDL Cholesterol Urine WBC (Auto) Vancomycin Trough Salicylates Acetaminophen % CD3 Cells % CD19 Cells Absolute CD19 Count Miscellaneous Test Crossmatch 08/27/18 08/27/18 08/28/18 04:35 12:17 04:43 WBC RBC Hgb Hct RDW Plt Count Lymph % (Auto) [place] % (Auto) Lymph # [place] # Seg Neutrophils % Seg Neuts % (Manual) Lymphocytes % (Manual) Nucleated RBC % Seg Neutrophils # Seg Neutrophils # Man Lymphocytes # (Manual) D-Dimer POC ABG pH POC ABG pCO2 32.1 L 33.8 L POC ABG pO2 68 L 78 L VBG pH Sodium Potassium Chloride Carbon Dioxide 19 L BUN 67 H Creatinine 2.9 H Glucose 155 H POC Glucose Hemoglobin A1c Lactic Acid Calcium Phosphorus 4.70 H Magnesium Iron TIBC AST ALT Troponin T C-Reactive Protein Total Protein Albumin Triglycerides LDL Cholesterol Direct HDL Cholesterol Urine WBC (Auto) Vancomycin Trough Salicylates Acetaminophen % CD3 Cells % CD19 Cells Absolute CD19 Count Miscellaneous Test Crossmatch 08/28/18 08/28/18 08/28/18 05:03 05:20 05:20 WBC RBC 2.43 L Hgb 7.4 L Hct 21.8 L RDW 20.8 H Plt Count Lymph % (Auto) 7.6 L [place] % (Auto) 8.7 H Lymph # 0.7 L [place] # Seg Neutrophils % 82.9 H Seg Neuts % (Manual) Lymphocytes % (Manual) Nucleated RBC % Seg Neutrophils # Seg Neutrophils # Man Lymphocytes # (Manual) D-Dimer POC ABG pH POC ABG pCO2 POC ABG pO2 VBG pH Sodium Potassium Chloride 107.8 H Carbon Dioxide 21 L BUN 55 H Creatinine 2.0 H Glucose 177 H POC Glucose 160 H Hemoglobin A1c Lactic Acid Calcium Phosphorus Magnesium Iron TIBC AST ALT Troponin T C-Reactive Protein Total Protein Albumin Triglycerides LDL Cholesterol Direct HDL Cholesterol Urine WBC (Auto) Vancomycin Trough Salicylates Acetaminophen % CD3 Cells % CD19 Cells Absolute CD19 Count Miscellaneous Test Crossmatch 08/28/18 08/28/18 08/28/18 12:18 18:58 22:31 WBC RBC Hgb Hct RDW Plt Count Lymph % (Auto) [place] % (Auto) Lymph # [place] # Seg Neutrophils % Seg Neuts % (Manual) Lymphocytes % (Manual) Nucleated RBC % Seg Neutrophils # Seg Neutrophils # Man Lymphocytes # (Manual) D-Dimer POC ABG pH POC ABG pCO2 34.4 L POC ABG pO2 67 L VBG pH Sodium Potassium Chloride Carbon Dioxide BUN Creatinine Glucose POC Glucose 164 H 149 H Hemoglobin A1c Lactic Acid Calcium Phosphorus Magnesium Iron TIBC AST ALT Troponin T C-Reactive Protein Total Protein Albumin Triglycerides LDL Cholesterol Direct HDL Cholesterol Urine WBC (Auto) Vancomycin Trough Salicylates Acetaminophen % CD3 Cells % CD19 Cells Absolute CD19 Count Miscellaneous Test Crossmatch 08/28/18 08/29/18 08/29/18 23:33 05:25 05:25 WBC RBC 2.30 L Hgb 7.0 L Hct 20.9 L RDW 21.0 H Plt Count Lymph % (Auto) 11.5 L [place] % (Auto) 9.2 H Lymph # 0.8 L [place] # Seg Neutrophils % 78.8 H Seg Neuts % (Manual) Lymphocytes % (Manual) Nucleated RBC % Seg Neutrophils # Seg Neutrophils # Man Lymphocytes # (Manual) D-Dimer POC ABG pH POC ABG pCO2 POC ABG pO2 VBG pH Sodium Potassium Chloride 111.1 H Carbon Dioxide BUN 55 H Creatinine 1.8 H Glucose 162 H POC Glucose 143 H Hemoglobin A1c Lactic Acid Calcium Phosphorus Magnesium Iron TIBC AST 46 H ALT < 5 L Troponin T C-Reactive Protein Total Protein 5.7 L Albumin 2.1 L Triglycerides LDL Cholesterol Direct HDL Cholesterol Urine WBC (Auto) Vancomycin Trough Salicylates Acetaminophen % CD3 Cells % CD19 Cells Absolute CD19 Count Miscellaneous Test Crossmatch 08/29/18 08/29/18 08/30/18 18:19 23:35 05:03 WBC RBC Hgb Hct RDW Plt Count Lymph % (Auto) [place] % (Auto) Lymph # [place] # Seg Neutrophils % Seg Neuts % (Manual) Lymphocytes % (Manual) Nucleated RBC % Seg Neutrophils # Seg Neutrophils # Man Lymphocytes # (Manual) D-Dimer POC ABG pH POC ABG pCO2 POC ABG pO2 VBG pH Sodium Potassium Chloride Carbon Dioxide BUN Creatinine Glucose POC Glucose 155 H 139 H 122 H Hemoglobin A1c Lactic Acid Calcium Phosphorus Magnesium Iron TIBC AST ALT Troponin T C-Reactive Protein Total Protein Albumin Triglycerides LDL Cholesterol Direct HDL Cholesterol Urine WBC (Auto) Vancomycin Trough Salicylates Acetaminophen % CD3 Cells % CD19 Cells Absolute CD19 Count Miscellaneous Test Crossmatch 08/30/18 08/30/18 08/30/18 09:33 09:33 09:54 WBC RBC 2.58 L Hgb 7.9 L Hct 23.5 L RDW 20.9 H Plt Count Lymph % (Auto) 8.0 L [place] % (Auto) 9.7 H Lymph # 0.8 L [place] # 1.0 H Seg Neutrophils % 82.1 H Seg Neuts % (Manual) Lymphocytes % (Manual) Nucleated RBC % Seg Neutrophils # 8.2 H Seg Neutrophils # Man Lymphocytes # (Manual) D-Dimer POC ABG pH POC ABG pCO2 POC ABG pO2 VBG pH Sodium 146 H Potassium Chloride 110.7 H Carbon Dioxide BUN 56 H Creatinine 1.9 H Glucose 145 H POC Glucose Hemoglobin A1c Lactic Acid Calcium Phosphorus 4.60 H Magnesium Iron TIBC AST ALT < 5 L Troponin T C-Reactive Protein Total Protein Albumin 2.7 L Triglycerides LDL Cholesterol Direct HDL Cholesterol Urine WBC (Auto) Vancomycin Trough Salicylates Acetaminophen % CD3 Cells % CD19 Cells Absolute CD19 Count Miscellaneous Test Flexitest 1 H Crossmatch 08/30/18 08/30/18 08/30/18 09:57 11:26 18:08 WBC RBC Hgb Hct RDW Plt Count Lymph % (Auto) [place] % (Auto) Lymph # [place] # Seg Neutrophils % Seg Neuts % (Manual) Lymphocytes % (Manual) Nucleated RBC % Seg Neutrophils # Seg Neutrophils # Man Lymphocytes # (Manual) D-Dimer POC ABG pH POC ABG pCO2 POC ABG pO2 VBG pH Sodium Potassium Chloride Carbon Dioxide BUN Creatinine Glucose POC Glucose 149 H 156 H Hemoglobin A1c Lactic Acid Calcium Phosphorus Magnesium Iron TIBC AST ALT Troponin T C-Reactive Protein Total Protein Albumin Triglycerides LDL Cholesterol Direct HDL Cholesterol Urine WBC (Auto) Vancomycin Trough Salicylates Acetaminophen % CD3 Cells % CD19 Cells Absolute CD19 Count Miscellaneous Test Flexitest 1 H Crossmatch 08/30/18 08/31/18 08/31/18 23:14 05:16 08:40 WBC RBC Hgb Hct RDW Plt Count Lymph % (Auto) [place] % (Auto) Lymph # [place] # Seg Neutrophils % Seg Neuts % (Manual) Lymphocytes % (Manual) Nucleated RBC % Seg Neutrophils # Seg Neutrophils # Man Lymphocytes # (Manual) D-Dimer POC ABG pH POC ABG pCO2 POC ABG pO2 VBG pH Sodium 151 H Potassium Chloride 113.8 H Carbon Dioxide BUN 45 H Creatinine Glucose 144 H POC Glucose 117 H 133 H Hemoglobin A1c Lactic Acid Calcium Phosphorus Magnesium Iron TIBC AST ALT Troponin T C-Reactive Protein Total Protein Albumin Triglycerides LDL Cholesterol Direct HDL Cholesterol Urine WBC (Auto) Vancomycin Trough Salicylates Acetaminophen % CD3 Cells % CD19 Cells Absolute CD19 Count Miscellaneous Test Crossmatch 08/31/18 09/01/18 09/01/18 23:46 04:45 04:45 WBC RBC 2.38 L Hgb 7.3 L Hct 22.1 L RDW 21.1 H Plt Count Lymph % (Auto) [place] % (Auto) Lymph # [place] # Seg Neutrophils % Seg Neuts % (Manual) 93.0 H Lymphocytes % (Manual) 4.0 L Nucleated RBC % Seg Neutrophils # Seg Neutrophils # Man 10.1 H Lymphocytes # (Manual) 0.4 L D-Dimer POC ABG pH POC ABG pCO2 POC ABG pO2 VBG pH Sodium 156 H Potassium 3.1 L Chloride 115.2 H Carbon Dioxide BUN 34 H Creatinine Glucose 125 H POC Glucose 124 H Hemoglobin A1c Lactic Acid Calcium Phosphorus Magnesium Iron TIBC AST ALT Troponin T C-Reactive Protein Total Protein Albumin Triglycerides LDL Cholesterol Direct HDL Cholesterol Urine WBC (Auto) Vancomycin Trough Salicylates Acetaminophen % CD3 Cells % CD19 Cells Absolute CD19 Count Miscellaneous Test Crossmatch 09/01/18 09/01/18 09/01/18 05:34 11:20 17:52 WBC RBC Hgb Hct RDW Plt Count Lymph % (Auto) [place] % (Auto) Lymph # [place] # Seg Neutrophils % Seg Neuts % (Manual) Lymphocytes % (Manual) Nucleated RBC % Seg Neutrophils # Seg Neutrophils # Man Lymphocytes # (Manual) D-Dimer POC ABG pH 7.553 H POC ABG pCO2 POC ABG pO2 74 L VBG pH Sodium Potassium Chloride Carbon Dioxide BUN Creatinine Glucose POC Glucose 128 H 146 H Hemoglobin A1c Lactic Acid Calcium Phosphorus Magnesium Iron TIBC AST ALT Troponin T C-Reactive Protein Total Protein Albumin Triglycerides LDL Cholesterol Direct HDL Cholesterol Urine WBC (Auto) Vancomycin Trough Salicylates Acetaminophen % CD3 Cells % CD19 Cells Absolute CD19 Count Miscellaneous Test Crossmatch 09/01/18 09/02/18 09/02/18 17:52 04:13 04:58 WBC 16.4 H RBC 2.64 L Hgb 7.9 L Hct 24.3 L RDW 20.8 H Plt Count Lymph % (Auto) [place] % (Auto) Lymph # [place] # Seg Neutrophils % Seg Neuts % (Manual) 96.0 H Lymphocytes % (Manual) 1.0 L Nucleated RBC % Seg Neutrophils # Seg Neutrophils # Man 15.7 H Lymphocytes # (Manual) 0.2 L D-Dimer POC ABG pH 7.488 H POC ABG pCO2 POC ABG pO2 63 L VBG pH Sodium Potassium Chloride Carbon Dioxide BUN Creatinine Glucose POC Glucose 143 H Hemoglobin A1c Lactic Acid Calcium Phosphorus Magnesium Iron TIBC AST ALT Troponin T C-Reactive Protein Total Protein Albumin Triglycerides LDL Cholesterol Direct HDL Cholesterol Urine WBC (Auto) Vancomycin Trough Salicylates Acetaminophen % CD3 Cells % CD19 Cells Absolute CD19 Count Miscellaneous Test Crossmatch 09/02/18 09/02/18 09/02/18 04:58 11:03 18:18 WBC RBC Hgb Hct RDW Plt Count Lymph % (Auto) [place] % (Auto) Lymph # [place] # Seg Neutrophils % Seg Neuts % (Manual) Lymphocytes % (Manual) Nucleated RBC % Seg Neutrophils # Seg Neutrophils # Man Lymphocytes # (Manual) D-Dimer POC ABG pH 7.344 L POC ABG pCO2 52.8 H POC ABG pO2 VBG pH Sodium 158 H Potassium 2.9 L* Chloride 115.7 H Carbon Dioxide BUN 27 H Creatinine 0.6 L Glucose 128 H POC Glucose 121 H Hemoglobin A1c Lactic Acid Calcium Phosphorus Magnesium 1.60 L Iron TIBC AST 64 H ALT Troponin T C-Reactive Protein Total Protein Albumin 2.6 L Triglycerides LDL Cholesterol Direct HDL Cholesterol Urine WBC (Auto) Vancomycin Trough Salicylates Acetaminophen % CD3 Cells % CD19 Cells Absolute CD19 Count Miscellaneous Test Crossmatch 09/02/18 09/03/18 09/03/18 23:06 03:36 04:25 WBC RBC 2.20 L Hgb 6.7 L Hct 20.9 L RDW 21.1 H Plt Count Lymph % (Auto) [place] % (Auto) Lymph # [place] # Seg Neutrophils % Seg Neuts % (Manual) 90.0 H Lymphocytes % (Manual) 5.0 L Nucleated RBC % Seg Neutrophils # Seg Neutrophils # Man 8.7 H Lymphocytes # (Manual) 0.5 L D-Dimer POC ABG pH POC ABG pCO2 POC ABG pO2 54 L VBG pH Sodium Potassium Chloride Carbon Dioxide BUN Creatinine Glucose POC Glucose 121 H Hemoglobin A1c Lactic Acid Calcium Phosphorus Magnesium Iron TIBC AST ALT Troponin T C-Reactive Protein Total Protein Albumin Triglycerides LDL Cholesterol Direct HDL Cholesterol Urine WBC (Auto) Vancomycin Trough Salicylates Acetaminophen % CD3 Cells % CD19 Cells Absolute CD19 Count Miscellaneous Test Crossmatch 09/03/18 09/03/18 09/03/18 04:25 05:45 10:24 WBC RBC Hgb Hct RDW Plt Count Lymph % (Auto) [place] % (Auto) Lymph # [place] # Seg Neutrophils % Seg Neuts % (Manual) Lymphocytes % (Manual) Nucleated RBC % Seg Neutrophils # Seg Neutrophils # Man Lymphocytes # (Manual) D-Dimer POC ABG pH POC ABG pCO2 POC ABG pO2 VBG pH Sodium 158 H Potassium 3.1 L Chloride 120.4 H Carbon Dioxide BUN 25 H Creatinine 0.6 L Glucose 127 H POC Glucose 178 H Hemoglobin A1c Lactic Acid Calcium 7.9 L Phosphorus Magnesium Iron TIBC AST ALT Troponin T C-Reactive Protein Total Protein 6.0 L Albumin 2.4 L Triglycerides LDL Cholesterol Direct HDL Cholesterol Urine WBC (Auto) Vancomycin Trough Salicylates Acetaminophen % CD3 Cells % CD19 Cells Absolute CD19 Count Miscellaneous Test Crossmatch See Detail 09/03/18 09/03/18 09/04/18 11:27 23:09 04:42 WBC RBC Hgb Hct RDW Plt Count Lymph % (Auto) [place] % (Auto) Lymph # [place] # Seg Neutrophils % Seg Neuts % (Manual) Lymphocytes % (Manual) Nucleated RBC % Seg Neutrophils # Seg Neutrophils # Man Lymphocytes # (Manual) D-Dimer POC ABG pH 7.293 L POC ABG pCO2 50.2 H POC ABG pO2 VBG pH Sodium Potassium Chloride Carbon Dioxide BUN Creatinine Glucose POC Glucose 107 H 139 H Hemoglobin A1c Lactic Acid Calcium Phosphorus Magnesium Iron TIBC AST ALT Troponin T C-Reactive Protein Total Protein Albumin Triglycerides LDL Cholesterol Direct HDL Cholesterol Urine WBC (Auto) Vancomycin Trough Salicylates Acetaminophen % CD3 Cells % CD19 Cells Absolute CD19 Count Miscellaneous Test Crossmatch 09/04/18 09/04/18 09/04/18 05:00 06:30 06:30 WBC RBC 2.32 L Hgb 7.0 L Hct 21.9 L RDW 20.2 H Plt Count Lymph % (Auto) [place] % (Auto) Lymph # [place] # Seg Neutrophils % 80.1 H Seg Neuts % (Manual) Lymphocytes % (Manual) Nucleated RBC % Seg Neutrophils # 8.2 H Seg Neutrophils # Man Lymphocytes # (Manual) D-Dimer POC ABG pH POC ABG pCO2 POC ABG pO2 VBG pH Sodium 150 H D Potassium Chloride 115.9 H Carbon Dioxide BUN 21 H Creatinine 0.6 L Glucose 125 H POC Glucose 154 H Hemoglobin A1c Lactic Acid Calcium 7.9 L Phosphorus Magnesium 1.50 L Iron TIBC AST ALT Troponin T C-Reactive Protein Total Protein Albumin Triglycerides LDL Cholesterol Direct HDL Cholesterol Urine WBC (Auto) Vancomycin Trough Salicylates Acetaminophen % CD3 Cells % CD19 Cells Absolute CD19 Count Miscellaneous Test Crossmatch 09/04/18 09/04/18 09/04/18 11:20 11:51 18:27 WBC RBC Hgb Hct RDW Plt Count Lymph % (Auto) [place] % (Auto) Lymph # [place] # Seg Neutrophils % Seg Neuts % (Manual) Lymphocytes % (Manual) Nucleated RBC % Seg Neutrophils # Seg Neutrophils # Man Lymphocytes # (Manual) D-Dimer POC ABG pH 7.244 L POC ABG pCO2 54.2 H POC ABG pO2 62 L VBG pH Sodium Potassium Chloride Carbon Dioxide BUN Creatinine Glucose POC Glucose 156 H 129 H Hemoglobin A1c Lactic Acid Calcium Phosphorus Magnesium Iron TIBC AST ALT Troponin T C-Reactive Protein Total Protein Albumin Triglycerides LDL Cholesterol Direct HDL Cholesterol Urine WBC (Auto) Vancomycin Trough Salicylates Acetaminophen % CD3 Cells % CD19 Cells Absolute CD19 Count Miscellaneous Test Crossmatch 09/05/18 09/05/18 09/05/18 03:46 04:00 04:00 WBC RBC 2.13 L Hgb 6.4 L Hct 20.1 L RDW 19.9 H Plt Count 117 L Lymph % (Auto) [place] % (Auto) Lymph # 0.9 L [place] # Seg Neutrophils % 81.7 H Seg Neuts % (Manual) Lymphocytes % (Manual) Nucleated RBC % Seg Neutrophils # Seg Neutrophils # Man Lymphocytes # (Manual) D-Dimer POC ABG pH 7.282 L POC ABG pCO2 57.3 H POC ABG pO2 124 H VBG pH Sodium Potassium Chloride 111.0 H Carbon Dioxide BUN 20 H Creatinine Glucose 130 H POC Glucose Hemoglobin A1c Lactic Acid Calcium 7.8 L Phosphorus Magnesium 1.60 L Iron TIBC AST ALT Troponin T C-Reactive Protein Total Protein Albumin Triglycerides LDL Cholesterol Direct HDL Cholesterol Urine WBC (Auto) Vancomycin Trough Salicylates Acetaminophen % CD3 Cells % CD19 Cells Absolute CD19 Count Miscellaneous Test Crossmatch 09/05/18 09/05/18 09/05/18 12:15 17:24 23:24 WBC RBC Hgb Hct RDW Plt Count Lymph % (Auto) [place] % (Auto) Lymph # [place] # Seg Neutrophils % Seg Neuts % (Manual) Lymphocytes % (Manual) Nucleated RBC % Seg Neutrophils # Seg Neutrophils # Man Lymphocytes # (Manual) D-Dimer POC ABG pH POC ABG pCO2 POC ABG pO2 VBG pH Sodium Potassium Chloride Carbon Dioxide BUN Creatinine Glucose POC Glucose 143 H 116 H 116 H Hemoglobin A1c Lactic Acid Calcium Phosphorus Magnesium Iron TIBC AST ALT Troponin T C-Reactive Protein Total Protein Albumin Triglycerides LDL Cholesterol Direct HDL Cholesterol Urine WBC (Auto) Vancomycin Trough Salicylates Acetaminophen % CD3 Cells % CD19 Cells Absolute CD19 Count Miscellaneous Test Crossmatch 09/06/18 09/06/18 09/06/18 03:33 04:20 04:20 WBC RBC 2.45 L Hgb 7.4 L Hct 23.0 L RDW 18.1 H Plt Count 99 L Lymph % (Auto) [place] % (Auto) Lymph # 1.0 L [place] # Seg Neutrophils % 78.0 H Seg Neuts % (Manual) Lymphocytes % (Manual) Nucleated RBC % Seg Neutrophils # Seg Neutrophils # Man Lymphocytes # (Manual) D-Dimer POC ABG pH 7.303 L POC ABG pCO2 49.2 H POC ABG pO2 73 L VBG pH Sodium Potassium Chloride 109.3 H Carbon Dioxide BUN 24 H Creatinine Glucose 108 H POC Glucose Hemoglobin A1c Lactic Acid Calcium 8.1 L Phosphorus Magnesium Iron TIBC AST ALT Troponin T C-Reactive Protein Total Protein Albumin Triglycerides LDL Cholesterol Direct HDL Cholesterol Urine WBC (Auto) Vancomycin Trough Salicylates Acetaminophen % CD3 Cells % CD19 Cells Absolute CD19 Count Miscellaneous Test Crossmatch 09/06/18 09/06/18 09/06/18 04:55 11:29 14:40 WBC RBC Hgb Hct RDW Plt Count Lymph % (Auto) [place] % (Auto) Lymph # [place] # Seg Neutrophils % Seg Neuts % (Manual) Lymphocytes % (Manual) Nucleated RBC % Seg Neutrophils # Seg Neutrophils # Man Lymphocytes # (Manual) D-Dimer POC ABG pH POC ABG pCO2 POC ABG pO2 VBG pH Sodium Potassium Chloride Carbon Dioxide BUN Creatinine Glucose POC Glucose 124 H 149 H Hemoglobin A1c Lactic Acid Calcium Phosphorus Magnesium Iron TIBC AST ALT Troponin T C-Reactive Protein Total Protein Albumin Triglycerides LDL Cholesterol Direct HDL Cholesterol Urine WBC (Auto) Vancomycin Trough 28.6 H Salicylates Acetaminophen % CD3 Cells % CD19 Cells Absolute CD19 Count Miscellaneous Test Crossmatch 09/06/18 09/06/18 09/07/18 17:43 20:08 00:39 WBC RBC Hgb Hct RDW Plt Count Lymph % (Auto) [place] % (Auto) Lymph # [place] # Seg Neutrophils % Seg Neuts % (Manual) Lymphocytes % (Manual) Nucleated RBC % Seg Neutrophils # Seg Neutrophils # Man Lymphocytes # (Manual) D-Dimer POC ABG pH POC ABG pCO2 POC ABG pO2 VBG pH Sodium Potassium Chloride Carbon Dioxide BUN Creatinine Glucose POC Glucose 138 H 118 H 131 H Hemoglobin A1c Lactic Acid Calcium Phosphorus Magnesium Iron TIBC AST ALT Troponin T C-Reactive Protein Total Protein Albumin Triglycerides LDL Cholesterol Direct HDL Cholesterol Urine WBC (Auto) Vancomycin Trough Salicylates Acetaminophen % CD3 Cells % CD19 Cells Absolute CD19 Count Miscellaneous Test Crossmatch 09/07/18 09/07/18 09/07/18 05:40 05:40 12:03 WBC RBC 2.40 L Hgb 7.3 L Hct 22.5 L RDW 17.8 H Plt Count 92 L Lymph % (Auto) [place] % (Auto) Lymph # [place] # Seg Neutrophils % Seg Neuts % (Manual) 80.0 H Lymphocytes % (Manual) Nucleated RBC % 1.0 H Seg Neutrophils # Seg Neutrophils # Man Lymphocytes # (Manual) 0.8 L D-Dimer POC ABG pH POC ABG pCO2 POC ABG pO2 VBG pH Sodium Potassium Chloride 109.8 H Carbon Dioxide BUN 26 H Creatinine Glucose 118 H POC Glucose 145 H Hemoglobin A1c Lactic Acid Calcium 8.0 L Phosphorus Magnesium Iron 26 L TIBC 150 L AST 88 H ALT Troponin T C-Reactive Protein Total Protein 5.8 L Albumin 2.1 L Triglycerides LDL Cholesterol Direct HDL Cholesterol Urine WBC (Auto) Vancomycin Trough Salicylates Acetaminophen % CD3 Cells % CD19 Cells Absolute CD19 Count Miscellaneous Test Crossmatch 09/07/18 09/07/18 09/08/18 17:39 23:21 05:48 WBC RBC Hgb Hct RDW Plt Count Lymph % (Auto) [place] % (Auto) Lymph # [place] # Seg Neutrophils % Seg Neuts % (Manual) Lymphocytes % (Manual) Nucleated RBC % Seg Neutrophils # Seg Neutrophils # Man Lymphocytes # (Manual) D-Dimer POC ABG pH POC ABG pCO2 POC ABG pO2 VBG pH Sodium Potassium Chloride Carbon Dioxide BUN Creatinine Glucose POC Glucose 128 H 136 H 129 H Hemoglobin A1c Lactic Acid Calcium Phosphorus Magnesium Iron TIBC AST ALT Troponin T C-Reactive Protein Total Protein Albumin Triglycerides LDL Cholesterol Direct HDL Cholesterol Urine WBC (Auto) Vancomycin Trough Salicylates Acetaminophen % CD3 Cells % CD19 Cells Absolute CD19 Count Miscellaneous Test Crossmatch 09/08/18 09/08/18 09/08/18 06:17 10:06 10:42 WBC RBC Hgb Hct RDW Plt Count Lymph % (Auto) [place] % (Auto) Lymph # [place] # Seg Neutrophils % Seg Neuts % (Manual) Lymphocytes % (Manual) Nucleated RBC % Seg Neutrophils # Seg Neutrophils # Man Lymphocytes # (Manual) D-Dimer POC ABG pH 7.292 L 7.276 L POC ABG pCO2 56.9 H 65.1 H POC ABG pO2 VBG pH Sodium 146 H Potassium Chloride 109.1 H Carbon Dioxide BUN 28 H Creatinine Glucose 165 H POC Glucose Hemoglobin A1c Lactic Acid Calcium Phosphorus Magnesium Iron TIBC AST ALT Troponin T C-Reactive Protein Total Protein Albumin Triglycerides LDL Cholesterol Direct HDL Cholesterol Urine WBC (Auto) Vancomycin Trough Salicylates Acetaminophen % CD3 Cells % CD19 Cells Absolute CD19 Count Miscellaneous Test Crossmatch 09/08/18 09/08/18 09/08/18 11:06 18:07 23:20 WBC RBC Hgb Hct RDW Plt Count Lymph % (Auto) [place] % (Auto) Lymph # [place] # Seg Neutrophils % Seg Neuts % (Manual) Lymphocytes % (Manual) Nucleated RBC % Seg Neutrophils # Seg Neutrophils # Man Lymphocytes # (Manual) D-Dimer POC ABG pH POC ABG pCO2 POC ABG pO2 VBG pH Sodium Potassium Chloride Carbon Dioxide BUN Creatinine Glucose POC Glucose 165 H 140 H 124 H Hemoglobin A1c Lactic Acid Calcium Phosphorus Magnesium Iron TIBC AST ALT Troponin T C-Reactive Protein Total Protein Albumin Triglycerides LDL Cholesterol Direct HDL Cholesterol Urine WBC (Auto) Vancomycin Trough Salicylates Acetaminophen % CD3 Cells % CD19 Cells Absolute CD19 Count Miscellaneous Test Crossmatch 09/09/18 09/09/18 09/09/18 05:04 08:39 08:39 WBC RBC 2.60 L Hgb 8.1 L Hct 24.6 L RDW 17.9 H Plt Count Lymph % (Auto) [place] % (Auto) Lymph # [place] # Seg Neutrophils % Seg Neuts % (Manual) Lymphocytes % (Manual) Nucleated RBC % Seg Neutrophils # Seg Neutrophils # Man Lymphocytes # (Manual) D-Dimer POC ABG pH POC ABG pCO2 POC ABG pO2 VBG pH Sodium Potassium Chloride Carbon Dioxide BUN 32 H Creatinine Glucose 150 H POC Glucose 168 H Hemoglobin A1c Lactic Acid Calcium Phosphorus Magnesium Iron TIBC AST ALT Troponin T C-Reactive Protein Total Protein Albumin Triglycerides LDL Cholesterol Direct HDL Cholesterol Urine WBC (Auto) Vancomycin Trough Salicylates Acetaminophen % CD3 Cells % CD19 Cells Absolute CD19 Count Miscellaneous Test Crossmatch 09/09/18 09/10/18 09/10/18 12:41 04:20 04:20 WBC RBC 2.49 L Hgb 7.7 L Hct 23.4 L RDW 18.0 H Plt Count Lymph % (Auto) 8.2 L [place] % (Auto) Lymph # 0.7 L [place] # Seg Neutrophils % 87.7 H Seg Neuts % (Manual) Lymphocytes % (Manual) Nucleated RBC % Seg Neutrophils # Seg Neutrophils # Man Lymphocytes # (Manual) D-Dimer POC ABG pH POC ABG pCO2 POC ABG pO2 VBG pH Sodium Potassium Chloride Carbon Dioxide 31 H BUN 39 H Creatinine Glucose 183 H POC Glucose 150 H Hemoglobin A1c Lactic Acid Calcium Phosphorus Magnesium Iron TIBC AST 85 H ALT 58 H Troponin T C-Reactive Protein Total Protein Albumin 2.5 L Triglycerides LDL Cholesterol Direct HDL Cholesterol Urine WBC (Auto) Vancomycin Trough Salicylates Acetaminophen % CD3 Cells % CD19 Cells Absolute CD19 Count Miscellaneous Test Crossmatch 09/10/18 09/10/18 09/10/18 04:39 05:06 11:17 WBC RBC Hgb Hct RDW Plt Count Lymph % (Auto) [place] % (Auto) Lymph # [place] # Seg Neutrophils % Seg Neuts % (Manual) Lymphocytes % (Manual) Nucleated RBC % Seg Neutrophils # Seg Neutrophils # Man Lymphocytes # (Manual) D-Dimer POC ABG pH POC ABG pCO2 51.4 H POC ABG pO2 VBG pH Sodium Potassium Chloride Carbon Dioxide BUN Creatinine Glucose POC Glucose 185 H 159 H Hemoglobin A1c Lactic Acid Calcium Phosphorus Magnesium Iron TIBC AST ALT Troponin T C-Reactive Protein Total Protein Albumin Triglycerides LDL Cholesterol Direct HDL Cholesterol Urine WBC (Auto) Vancomycin Trough Salicylates Acetaminophen % CD3 Cells % CD19 Cells Absolute CD19 Count Miscellaneous Test Crossmatch 09/10/18 09/11/18 09/11/18 16:57 00:17 01:10 WBC RBC Hgb Hct RDW Plt Count Lymph % (Auto) [place] % (Auto) Lymph # [place] # Seg Neutrophils % Seg Neuts % (Manual) Lymphocytes % (Manual) Nucleated RBC % Seg Neutrophils # Seg Neutrophils # Man Lymphocytes # (Manual) D-Dimer POC ABG pH POC ABG pCO2 POC ABG pO2 VBG pH Sodium Potassium Chloride Carbon Dioxide 34 H BUN 44 H Creatinine Glucose 154 H POC Glucose 177 H 163 H Hemoglobin A1c Lactic Acid Calcium Phosphorus Magnesium Iron TIBC AST 86 H ALT 68 H Troponin T C-Reactive Protein Total Protein Albumin 2.6 L Triglycerides LDL Cholesterol Direct HDL Cholesterol Urine WBC (Auto) Vancomycin Trough Salicylates Acetaminophen % CD3 Cells % CD19 Cells Absolute CD19 Count Miscellaneous Test Crossmatch 09/11/18 09/11/18 09/11/18 01:10 06:03 09:00 WBC 13.7 H RBC 2.61 L Hgb 8.0 L Hct 24.6 L RDW 19.1 H Plt Count Lymph % (Auto) 6.1 L [place] % (Auto) Lymph # 0.8 L [place] # Seg Neutrophils % 87.7 H Seg Neuts % (Manual) Lymphocytes % (Manual) Nucleated RBC % Seg Neutrophils # 12.0 H Seg Neutrophils # Man Lymphocytes # (Manual) D-Dimer POC ABG pH POC ABG pCO2 POC ABG pO2 VBG pH Sodium Potassium Chloride Carbon Dioxide 33 H BUN 45 H Creatinine Glucose 147 H POC Glucose 180 H Hemoglobin A1c Lactic Acid Calcium Phosphorus Magnesium Iron TIBC AST ALT Troponin T C-Reactive Protein Total Protein Albumin Triglycerides LDL Cholesterol Direct HDL Cholesterol Urine WBC (Auto) Vancomycin Trough Salicylates Acetaminophen % CD3 Cells % CD19 Cells Absolute CD19 Count Miscellaneous Test Crossmatch 09/11/18 09/11/18 09/11/18 11:14 11:31 17:11 WBC RBC Hgb Hct RDW Plt Count Lymph % (Auto) [place] % (Auto) Lymph # [place]ard # Seg Neutrophils % Seg Neuts % (Manual) Lymphocytes % (Manual) Nucleated RBC % Seg Neutrophils # Seg Neutrophils # Man Lymphocytes # (Manual) D-Dimer POC ABG pH 7.498 H POC ABG pCO2 46.3 H POC ABG pO2 VBG pH Sodium Potassium Chloride Carbon Dioxide BUN Creatinine Glucose POC Glucose 163 H 202 H Hemoglobin A1c Lactic Acid Calcium Phosphorus Magnesium Iron TIBC AST ALT Troponin T C-Reactive Protein Total Protein Albumin Triglycerides LDL Cholesterol Direct HDL Cholesterol Urine WBC (Auto) Vancomycin Trough Salicylates Acetaminophen % CD3 Cells % CD19 Cells Absolute CD19 Count Miscellaneous Test Crossmatch 09/11/18 09/12/18 09/12/18 23:49 03:16 05:30 WBC RBC 2.36 L Hgb 7.3 L Hct 22.3 L RDW 18.4 H Plt Count Lymph % (Auto) 13.0 L [place] % (Auto) 9.3 H Lymph # 1.1 L [place] # Seg Neutrophils % 77.5 H Seg Neuts % (Manual) Lymphocytes % (Manual) Nucleated RBC % Seg Neutrophils # Seg Neutrophils # Man Lymphocytes # (Manual) D-Dimer POC ABG pH 7.517 H POC ABG pCO2 48.8 H POC ABG pO2 VBG pH Sodium Potassium Chloride Carbon Dioxide BUN Creatinine Glucose POC Glucose 163 H Hemoglobin A1c Lactic Acid Calcium Phosphorus Magnesium Iron TIBC AST ALT Troponin T C-Reactive Protein Total Protein Albumin Triglycerides LDL Cholesterol Direct HDL Cholesterol Urine WBC (Auto) Vancomycin Trough Salicylates Acetaminophen % CD3 Cells % CD19 Cells Absolute CD19 Count Miscellaneous Test Crossmatch 09/12/18 09/12/18 05:30 06:07 WBC RBC Hgb Hct RDW Plt Count Lymph % (Auto) [place] % (Auto) Lymph # [place] # Seg Neutrophils % Seg Neuts % (Manual) Lymphocytes % (Manual) Nucleated RBC % Seg Neutrophils # Seg Neutrophils # Man Lymphocytes # (Manual) D-Dimer POC ABG pH POC ABG pCO2 POC ABG pO2 VBG pH Sodium 148 H Potassium Chloride Carbon Dioxide 36 H BUN 46 H Creatinine Glucose 152 H POC Glucose 172 H Hemoglobin A1c Lactic Acid Calcium Phosphorus Magnesium Iron TIBC AST ALT Troponin T C-Reactive Protein Total Protein Albumin Triglycerides LDL Cholesterol Direct HDL Cholesterol Urine WBC (Auto) Vancomycin Trough Salicylates Acetaminophen % CD3 Cells % CD19 Cells Absolute CD19 Count Miscellaneous Test Crossmatch Allied health notes reviewed: RT (Wean down FIO2 to 60% then start weaning PEEP)
--- NOTE | 2018-09-12 10:50 | Progress Note ---
Assessment and Plan Cultures: 08/15/2018 blood culture: Camryn glabrata 1 of 4 08/15/2018 sputum culture: MSSA and Escherichia coli, wade susceptible 08/18/2018 blood culture: no growth 08/18/2018 urine culture: neg 08/22/2018 blood culture: no growth 08/25/2018 blood culture: no growth 09/02/2018 BAL cultures: resp almaz. Fungal and AFB pending: No growth thus far. 09/04/2018 blood culture: no growth thus far 09/04/2018 trach aspirate: no growth Fungitell was high (consistent with Candidemia), Aspergillus galactomannan negative. A/P: 68-year-old female with COPD, arthritis, history of multiple spinal surgeries was brought to the emergency room on 08/15/2018 with altered mental status: 1) Sepsis with septic shock: resolved. 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 Patient without any history of indwelling PICC line, TPN or immunocompromised status. reported severe explosive diarrhea, N/V before admission after taken 4 days of amoxicillin for dental implant on 07/29/2018 and had a EGD / colonoscopy on 08/08/[address] [facility] [address] Alcantara. I reviewed report - mild chronic gastritis, focal intestinal metaplasia, squamocolumnar mucosa with mild reflux-type changes, and tubular adenoma. -s/p fluconazole 800 mg loading dose then micafungin, s/p amphotericin D6 on 08/26 -serum Crypto negative. -08/15/2018 blood culture: Camryn glabrata -08/18/2018 blood culture: no growth -CTA chest showed limited study due to respiratory motion artifact. No ev idence of pulmonary embolism. Abnormal bilateral lung consolidation which may represent pulmonary edema or pneumonia. Mild cardiomegaly. Indeterminant mediastinal lymph nodes. -CT abdomen showed extensive bilateral lower lobe pulmonary infiltrates, rectal tube and Dodge catheter noted. NG tube at gastric antrum. Left hip prosthesis Extensive degenerative changes noted lumbar spine -TTE EF 25-30% no vegetations -HIV neg/ CD4 1004 -reviewed CT chest abd done 01/05/2019 showed cholecystectomy, mild fatty liver, postoperative changes of lumbar laminectomy with non specific fluid, 9 mm LLL pulmonary nodule which was compared to previous CT and was stable. -CRP 10-->5 3) Acute renal failure: On admission: improved. 4) Acute respiratory failure: Back on the vent. Recently completed pneumonia treatment. WBC up and low grade fever. Underwent bronch + BAL on 09/02/2018. Cultures with no growth thus far. On abx. CTA chest 09/06/2018 negative for PE, bilateral air space disease, no air bronchograms as such. High oxygen requirements, ?ARDS v/s fluid overload. 5) Right maxillary sinusitis: received empiric abx. 6) Acute encephalopathy: Likely multifactorial. CT head unremarkable for acute intracranial process. 7) Cardiomyopathy, LVEF 25-30% this admission. 8) H/O left hip prosthesis ? XR no effusion. CT with no enhancement 9) Left leg DVT: on anticoagulation. Hematology following. 10) Mild transaminitis: monitor for now. If persists, consider RUQ US. Recheck CMP tomorrow. ?fatty liver related. Recs: remains off abx and antifungals recheck CBC and CMP tomorrow Will follow along. Updated patient's at bedside. Brando Pradhan MD [facility] C: [phone] O: [phone] F: [phone] Subjective Date of service: 09/12/18 Principal diagnosis: anemia Interval history: Low grade temperatures +. No high fever. Remains on the vent. On tube feeds. Objective - Exam Narrative Exam: Physical Exam: Constitutional: can be awakened, intubated. Head, Ears, Nose: Normocephalic, atraumatic. External ears, nose normal Eyes: Conjunctivae/corneas clear. No icterus. No ptosis. Neck: Supple, no meningeal signs Oral: intubated. Cardiovascular: S1, S2 normal. Respiratory: clear breath sounds b/l, equal bilaterally GI: Soft, bowel sounds normal. No peritoneal signs. Musculoskeletal: pedal edema bilaterally 2+. L>R Skin: No rash or abscess Hem/Lymphatic: No palpable cervical or supraclavicular nodes. No lymphangitis Psych: calm, no agitation Neurological: can be awakened, intubated, obeying basic commands - Constitutional Vitals: Vital Signs Temp Pulse Resp BP Pulse Ox 99.7 F H 66 14 91/37 97 09/12/18 08:00 09/12/18 10:16 09/12/18 10:16 09/12/18 10:16 09/12/18 10:16 Temperature -Last 24 Hours Temperature 99.7 F Temperature 100.7 F Temperature 98.8 F Temperature 99.6 F Temperature 98.8 F Temperature 98.2 F - Labs CBC & Chem 7: 09/12/18 05:30 09/12/18 05:30 Labs: Abnormal lab results 09/11/18 09/11/18 09/11/18 Range/Units 11:14 11:31 17:11 RBC (3.65-5.03) M/mm3 Hgb (10.1-14.3) gm/dl Hct (30.3-42.9) % RDW (13.2-15.2) % Lymph % (Auto) (13.4-35.0) % [place] % (Auto) (0.0-7.3) % Lymph # (1.2-5.4) K/mm3 Seg Neutrophils % (40.0-70.0) % POC ABG pH 7.498 H (7.35-7.45) POC ABG pCO2 46.3 H (35-45) Sodium (137-145) mmol/L Carbon Dioxide (22-30) mmol/L BUN (7-17) mg/dL Glucose (65-100) mg/dL POC Glucose 163 H 202 H (70-105) 09/11/18 09/12/18 09/12/18 Range/Units 23:49 03:16 05:30 RBC 2.36 L (3.65-5.03) M/mm3 Hgb 7.3 L (10.1-14.3) gm/dl Hct 22.3 L (30.3-42.9) % RDW 18.4 H (13.2-15.2) % Lymph % (Auto) 13.0 L (13.4-35.0) % [place] % (Auto) 9.3 H (0.0-7.3) % Lymph # 1.1 L (1.2-5.4) K/mm3 Seg Neutrophils % 77.5 H (40.0-70.0) % POC ABG pH 7.517 H (7.35-7.45) POC ABG pCO2 48.8 H (35-45) Sodium (137-145) mmol/L Carbon Dioxide (22-30) mmol/L BUN (7-17) mg/dL Glucose (65-100) mg/dL POC Glucose 163 H (70-105) 09/12/18 09/12/18 Range/Units 05:30 06:07 RBC (3.65-5.03) M/mm3 Hgb (10.1-14.3) gm/dl Hct (30.3-42.9) % RDW (13.2-15.2) % Lymph % (Auto) (13.4-35.0) % [place] % (Auto) (0.0-7.3) % Lymph # (1.2-5.4) K/mm3 Seg Neutrophils % (40.0-70.0) % POC ABG pH (7.35-7.45) POC ABG pCO2 (35-45) Sodium 148 H (137-145) mmol/L Carbon Dioxide 36 H (22-30) mmol/L BUN 46 H (7-17) mg/dL Glucose 152 H (65-100) mg/dL POC Glucose 172 H (70-105)
--- NOTE | 2018-09-12 13:52 | Progress Note ---
Assessment and Plan 68 yo F with VDRF Plan: Discussed trach/PEG with last week and he was agreeable to proceed. Patient's Vent settings significantly improved since last week, now on AC PEEP 10 and FIO2 45%. 1. Will proceed with trach/PEG - scheduled for Wednesday09/14/18 @ 1330 2. Will reach out to to sign consent 3. Vent management per ICU 4. hold TF after MN tomorrow 5. CXR ordered for am Thank you, please call with questions Subjective Date of service: 09/12/18 Narrative: Pt seen and examined. No complaints. Awake on vent. NAD Objective Vital Signs - 12hr 09/12/18 09/12/18 09/12/18 02:00 02:15 02:30 Temperature Pulse Rate 82 81 82 Pulse Rate [ 84 Anterior Bilateral Throughout] Pulse Rate [ From Monitor] Respiratory 16 16 19 Rate Respiratory 24 Rate [Anterior Bilateral Throughout] Blood Pressure 133/69 133/69 133/69 O2 Sat by Pulse 93 96 96 Oximetry 09/12/18 09/12/18 09/12/18 02:46 03:00 03:16 Temperature Pulse Rate 82 80 81 Pulse Rate [ Anterior Bilateral Throughout] Pulse Rate [ From Monitor] Respiratory 14 17 14 Rate Respiratory Rate [Anterior Bilateral Throughout] Blood Pressure 133/69 146/66 146/66 O2 Sat by Pulse 95 93 96 Oximetry 09/12/18 09/12/18 09/12/18 03:30 03:46 03:56 Temperature Pulse Rate 80 80 79 Pulse Rate [ Anterior Bilateral Throughout] Pulse Rate [ From Monitor] Respiratory 26 H 13 Rate Respiratory Rate [Anterior Bilateral Throughout] Blood Pressure 146/66 146/66 146/66 O2 Sat by Pulse 96 96 95 Oximetry 09/12/18 09/12/18 09/12/18 04:00 04:16 04:32 Temperature 100.7 F H Pulse Rate 78 80 77 Pulse Rate [ Anterior Bilateral Throughout] Pulse Rate [ 81 From Monitor] Respiratory 16 15 10 L Rate Respiratory Rate [Anterior Bilateral Throughout] Blood Pressure 142/64 142/64 142/64 O2 Sat by Pulse 94 95 95 Oximetry 09/12/18 09/12/18 09/12/18 04:46 05:00 05:16 Temperature Pulse Rate 80 72 70 Pulse Rate [ Anterior Bilateral Throughout] Pulse Rate [ From Monitor] Respiratory 16 22 22 Rate Respiratory Rate [Anterior Bilateral Throughout] Blood Pressure 142/64 118/45 O2 Sat by Pulse 92 93 96 Oximetry 09/12/18 09/12/18 09/12/18 05:30 05:46 05:54 Temperature Pulse Rate 75 75 74 Pulse Rate [ Anterior Bilateral Throughout] Pulse Rate [ From Monitor] Respiratory 25 H 19 Rate Respiratory Rate [Anterior Bilateral Throughout] Blood Pressure 118/45 118/45 118/45 O2 Sat by Pulse 95 96 Oximetry 09/12/18 09/12/18 09/12/18 06:00 06:16 06:30 Temperature Pulse Rate 77 79 78 Pulse Rate [ Anterior Bilateral Throughout] Pulse Rate [ From Monitor] Respiratory 15 25 H 22 Rate Respiratory Rate [Anterior Bilateral Throughout] Blood Pressure 130/52 130/52 130/52 O2 Sat by Pulse 94 97 95 Oximetry 09/12/18 09/12/18 09/12/18 06:46 07:00 07:16 Temperature Pulse Rate 77 85 79 Pulse Rate [ Anterior Bilateral Throughout] Pulse Rate [ From Monitor] Respiratory 20 18 17 Rate Respiratory Rate [Anterior Bilateral Throughout] Blood Pressure 130/52 105/71 105/71 O2 Sat by Pulse 96 93 95 Oximetry 09/12/18 09/12/18 09/12/18 07:30 07:46 08:00 Temperature 99.7 F H Pulse Rate 81 78 82 Pulse Rate [ Anterior Bilateral Throughout] Pulse Rate [ 85 From Monitor] Respiratory 21 14 14 Rate Respiratory Rate [Anterior Bilateral Throughout] Blood Pressure 130/52 130/52 124/58 O2 Sat by Pulse 96 96 94 Oximetry 09/12/18 09/12/18 09/12/18 08:05 08:08 08:16 Temperature Pulse Rate 81 77 Pulse Rate [ 82 Anterior Bilateral Throughout] Pulse Rate [ From Monitor] Respiratory 14 Rate Respiratory 28 H Rate [Anterior Bilateral Throughout] Blood Pressure 124/58 124/58 O2 Sat by Pulse 99 99 Oximetry 09/12/18 09/12/18 09/12/18 08:30 08:31 08:46 Temperature Pulse Rate 75 81 Pulse Rate [ 81 Anterior Bilateral Throughout] Pulse Rate [ From Monitor] Respiratory 25 H 13 Rate Respiratory 27 H Rate [Anterior Bilateral Throughout] Blood Pressure 124/58 124/58 O2 Sat by Pulse 99 95 Oximetry 09/12/18 09/12/18 09/12/18 09:00 09:10 09:16 Temperature Pulse Rate 80 75 75 Pulse Rate [ Anterior Bilateral Throughout] Pulse Rate [ From Monitor] Respiratory 25 H 25 H Rate Respiratory Rate [Anterior Bilateral Throughout] Blood Pressure 135/60 124/58 135/60 O2 Sat by Pulse 95 94 Oximetry 09/12/18 09/12/18 09/12/18 09:30 09:46 09:51 Temperature Pulse Rate 76 75 71 Pulse Rate [ Anterior Bilateral Throughout] Pulse Rate [ From Monitor] Respiratory 24 25 H Rate Respiratory Rate [Anterior Bilateral Throughout] Blood Pressure 135/60 135/60 135/60 O2 Sat by Pulse 95 97 97 Oximetry 09/12/18 09/12/18 09/12/18 10:00 10:16 10:30 Temperature Pulse Rate 70 66 64 Pulse Rate [ Anterior Bilateral Throughout] Pulse Rate [ From Monitor] Respiratory 27 H 14 25 H Rate Respiratory Rate [Anterior Bilateral Throughout] Blood Pressure 91/37 91/37 91/37 O2 Sat by Pulse 97 97 96 Oximetry 09/12/18 09/12/18 09/12/18 10:46 11:00 11:16 Temperature Pulse Rate 64 67 68 Pulse Rate [ Anterior Bilateral Throughout] Pulse Rate [ From Monitor] Respiratory 26 H 22 22 Rate Respiratory Rate [Anterior Bilateral Throughout] Blood Pressure 91/37 120/49 120/49 O2 Sat by Pulse 98 94 98 Oximetry 09/12/18 09/12/18 09/12/18 11:30 11:34 11:45 Temperature Pulse Rate 66 69 72 Pulse Rate [ Anterior Bilateral Throughout] Pulse Rate [ From Monitor] Respiratory 24 21 Rate Respiratory Rate [Anterior Bilateral Throughout] Blood Pressure 120/49 120/49 120/49 O2 Sat by Pulse 97 96 95 Oximetry 09/12/18 09/12/18 09/12/18 12:00 12:16 12:30 Temperature 99.0 F Pulse Rate 66 75 71 Pulse Rate [ Anterior Bilateral Throughout] Pulse Rate [ 78 From Monitor] Respiratory 26 H 16 25 H Rate Respiratory Rate [Anterior Bilateral Throughout] Blood Pressure 111/58 120/49 120/49 O2 Sat by Pulse 93 95 96 Oximetry 09/12/18 09/12/18 09/12/18 12:46 13:00 13:39 Temperature Pulse Rate 78 69 Pulse Rate [ 76 Anterior Bilateral Throughout] Pulse Rate [ From Monitor] Respiratory 19 19 Rate Respiratory 26 H Rate [Anterior Bilateral Throughout] Blood Pressure 111/58 123/48 O2 Sat by Pulse 93 93 Oximetry 09/12/18 13:48 Temperature Pulse Rate Pulse Rate [ 75 Anterior Bilateral Throughout] Pulse Rate [ From Monitor] Respiratory Rate Respiratory 26 H Rate [Anterior Bilateral Throughout] Blood Pressure O2 Sat by Pulse Oximetry - General physical appearance Narrative Exam: Gen: awake on vent ENT: ETT in place. Trachea midline, no masses or LAD CV: s1, S2+ resp: on vent Abd: soft, NT, ND Ext: +edema - Labs 09/12/18 05:30 09/12/18 05:30 Diabetes panel 09/12/18 Range/Units 05:30 Sodium 148 H (137-145) mmol/L Potassium 3.6 (3.6-5.0) mmol/L Chloride 102.7 (98-107) mmol/L Carbon Dioxide 36 H (22-30) mmol/L BUN 46 H (7-17) mg/dL Creatinine 0.7 (0.7-1.2) mg/dL Glucose 152 H (65-100) mg/dL Calcium 8.8 (8.4-10.2) mg/dL Calcium panel 09/12/18 Range/Units 05:30 Calcium 8.8 (8.4-10.2) mg/dL Pituitary panel 09/12/18 Range/Units 05:30 Sodium 148 H (137-145) mmol/L Potassium 3.6 (3.6-5.0) mmol/L Chloride 102.7 (98-107) mmol/L Carbon Dioxide 36 H (22-30) mmol/L BUN 46 H (7-17) mg/dL Creatinine 0.7 (0.7-1.2) mg/dL Glucose 152 H (65-100) mg/dL Calcium 8.8 (8.4-10.2) mg/dL Adrenal panel 09/12/18 Range/Units 05:30 Sodium 148 H (137-145) mmol/L Potassium 3.6 (3.6-5.0) mmol/L Chloride 102.7 (98-107) mmol/L Carbon Dioxide 36 H (22-30) mmol/L BUN 46 H (7-17) mg/dL Creatinine 0.7 (0.7-1.2) mg/dL Glucose 152 H (65-100) mg/dL Calcium 8.8 (8.4-10.2) mg/dL
--- NOTE | 2018-09-12 18:49 | Progress Note ---
Assessment and Plan Assessment and plan: 68-year-old female patient with history of COPD arthritis C-spine and lumbar spine surgery. Chronic pain syndrome who was found unconscious in her feces and vomitus, patients family was available in [place] for a golf tournament patient was brought to the emergency room noted to be severely hy poxic and tachypneic, promptly intubated placed on ventilatory support and admitted to ICU patient was also noted to have possible aspiration pneumonia, completed treatment recommended by ID .currently monitoring of antibiotics .patient also had acute gastroenteritis acute kidney injury nonspecific elevation of troponins as well as septic shock evaluated by multiple specialties successfully weaned and extubated on 08/29/2018 however patient again went into acute respiratory failure requiring reintubation on 09/02/2018, Since then patient is vent dependent, may need trach and PEG and placement Assessment and plan; --Acute hypoxic hypercapnic respiratory failure; extubated 08/29/18 Re Intubated 09/02/18 vent dependent Patient may need trach and PEG,wean as tolerated and extubate --Status post bronchoscopy, BAL negative nebulizers, pulmonaryl following --Thrombocytopenia: Platelet count is Stable Lovenox changed to Arixtra --Anemia: s/p transfusion[3 PRBC] hemoglobin 8.0 Stool for occult blood x 2 negative --Febrile illness; resolved --Hypomagnesemia; Hypernatremia; resolved, --Gonzalez lower extremity DVT; anticoagulation with Lovenox CTA chest negative for PE --Sepsis; aspiration pneumonia ;s/p micafungin, meropenem and Vanco per ID Monitor off antibiotics --Hypertension; continue current antihypertensives --Severe malnutrition/hypoalbuminemia; Dietitian following --Acute kidney injury; probably secondary to ATN, Resolved, --Acute systolic congestive heart failure; EF 25-30%, Cardio following --Elevated Transaminases; resolved --DVT prophylaxis; on Arixtra Consults and recommendations noted and appreciated Plan of care reviewed with the patient's nurse The high probability of a clinically significant, sudden or life threatening deterioration of the [respiratory, cardiology, ID, renal and metabolic] system(s) required my full and direct attention, intervention and personal management. The aggregate critical care time was [32] minutes. This time is in addition to time spent performing reported procedures but includes the following: [x] Data Review and interpretation [x] Patient assessment and monitoring of vital signs [x] Documentation [x] Medication orders and management Plan of care is reviewed with the patient's son at the bedside as well as patient's nurse History Interval history: Patient seen and examined Medical records reviewed. No new events reported by the nursing Intubated , vent dependent Vital signs noted Hospitalist Physical - Constitutional Vitals: Temp Pulse Resp BP Pulse Ox 99.3 F 77 26 H 126/53 92 09/12/18 16:00 09/12/18 18:16 09/12/18 18:16 09/12/18 18:16 09/12/18 18:16 General appearance: Present: no acute distress, well-nourished, obese, other (on vent) - EENT Eyes: Present: PERRL, EOM intact - Neck Neck: Present: supple, normal ROM - Respiratory Respiratory effort: normal Respiratory: bilateral: diminished, rhonchi, negative: rales, wheezing - Cardiovascular Rhythm: regular Heart Sounds: Present: S1 & S2 - Extremities Extremities: no ischemia Extremity abnormal: edema - Abdominal General gastrointestinal: soft, non-tender, non-distended, normal bowel sounds - Integumentary Integumentary: Present: clear, warm - Psychiatric Psychiatric: other (on vent) - Neurologic Neurologic: other Results - Labs CBC & Chem 7: 09/14/18 04:55 09/14/18 04:55 Labs: Laboratory Last Values WBC 8.6 K/mm3 (4.5-11.0) 09/12/18 05:30 RBC 2.36 M/mm3 (3.65-5.03) L 09/12/18 05:30 Hgb 7.3 gm/dl (10.1-14.3) L 09/12/18 05:30 Hct 22.3 % (30.3-42.9) L 09/12/18 05:30 MCV 95 fl (79-97) 09/12/18 05:30 MCH 31 pg (28-32) 09/12/18 05:30 MCHC 33 % (30-34) 09/12/18 05:30 RDW 18.4 % (13.2-15.2) H 09/12/18 05:30 Plt Count 212 K/mm3 (140-440) 09/12/18 05:30 Lymph % (Auto) 13.0 % (13.4-35.0) L 09/12/18 05:30 [place] % (Auto) 9.3 % (0.0-7.3) H 09/12/18 05:30 Eos % (Auto) 0.0 % (0.0-4.3) 09/12/18 05:30 Baso % (Auto) 0.2 % (0.0-1.8) 09/12/18 05:30 Lymph # 1.1 K/mm3 (1.2-5.4) L 09/12/18 05:30 [place] # 0.8 K/mm3 (0.0-0.8) 09/12/18 05:30 Eos # 0.0 K/mm3 (0.0-0.4) 09/12/18 05:30 Baso # 0.0 K/mm3 (0.0-0.1) 09/12/18 05:30 Add Manual Diff Complete 09/07/18 05:40 Total Counted 100 09/07/18 05:40 Seg Neutrophils % 77.5 % (40.0-70.0) H 09/12/18 05:30 Seg Neuts % (Manual) 80.0 % (40.0-70.0) H 09/07/18 05:40 Band Neutrophils % 0 % 09/07/18 05:40 Lymphocytes % (Manual) 15.0 % (13.4-35.0) 09/07/18 05:40 Reactive Lymphs % (Man) 0 % 09/07/18 05:40 Monocytes % (Manual) 2.0 % (0.0-7.3) 09/07/18 05:40 Eosinophils % (Manual) 0 % (0.0-4.3) 09/07/18 05:40 Basophils % (Manual) 0 % (0.0-1.8) 09/07/18 05:40 Metamyelocytes % 2.0 % 09/07/18 05:40 Myelocytes % 1.0 % 09/07/18 05:40 Promyelocytes % 0 % 09/07/18 05:40 Blast Cells % 0 % 09/07/18 05:40 Nucleated RBC % 1.0 % (0.0-0.9) H 09/07/18 05:40 Seg Neutrophils # 6.7 K/mm3 (1.8-7.7) 09/12/18 05:30 Seg Neutrophils # Man 4.3 K/mm3 (1.8-7.7) 09/07/18 05:40 Band Neutrophils # 0.0 K/mm3 09/07/18 05:40 Abs Lymphs (Manual) 3262 cells/uL (850-3900) 08/19/18 14:32 Lymphocytes # (Manual) 0.8 K/mm3 (1.2-5.4) L 09/07/18 05:40 Abs React Lymphs (Man) 0.0 K/mm3 09/07/18 05:40 Monocytes # (Manual) 0.1 K/mm3 (0.0-0.8) 09/07/18 05:40 Eosinophils # (Manual) 0.0 K/mm3 (0.0-0.4) 09/07/18 05:40 Basophils # (Manual) 0.0 K/mm3 (0.0-0.1) 09/07/18 05:40 Metamyelocytes # 0.1 K/mm3 09/07/18 05:40 Myelocytes # 0.1 K/mm3 09/07/18 05:40 Promyelocytes # 0.0 K/mm3 09/07/18 05:40 Blast Cells # 0.0 K/mm3 09/07/18 05:40 WBC Morphology Not Reportable 09/07/18 05:40 Hypersegmented Neuts Not Reportable 09/07/18 05:40 Hyposegmented Neuts Not Reportable 09/07/18 05:40 Hypogranular Neuts Not Reportable 09/07/18 05:40 Smudge Cells Not Reportable 09/07/18 05:40 Toxic Granulation Not Reportable 09/07/18 05:40 Toxic Vacuolation Not Reportable 09/07/18 05:40 Dohle Bodies Not Reportable 09/07/18 05:40 Pelger-Huet Anomaly Not Reportable 09/07/18 05:40 Rosy Rods Not Reportable 09/07/18 05:40 Platelet Estimate Consistent w auto 09/07/18 05:40 Clumped Platelets Not Reportable 09/07/18 05:40 Plt Clumps, EDTA Not Reportable 09/07/18 05:40 Large Platelets Rare 09/07/18 05:40 Giant Platelets Not Reportable 09/07/18 05:40 Platelet Satelliting Not Reportable 09/07/18 05:40 Plt Morphology Comment Not Reportable 09/07/18 05:40 RBC Morphology Not Reportable 09/07/18 05:40 Dimorphic RBCs Not Reportable 09/07/18 05:40 Polychromasia Not Reportable 09/07/18 05:40 Hypochromasia Rare 09/07/18 05:40 Poikilocytosis Not Reportable 09/07/18 05:40 Anisocytosis Few 09/07/18 05:40 Microcytosis Not Reportable 09/07/18 05:40 Macrocytosis Not Reportable 09/07/18 05:40 Spherocytes Not Reportable 09/07/18 05:40 Pappenheimer Bodies Not Reportable 09/07/18 05:40 Sickle Cells Not Reportable 09/07/18 05:40 Target Cells Not Reportable 09/07/18 05:40 Tear Drop Cells Not Reportable 09/07/18 05:40 Ovalocytes Not Reportable 09/07/18 05:40 Helmet Cells Not Reportable 09/07/18 05:40 Hernandez-Sp[place] Bodies Not Reportable 09/07/18 05:40 [place] Rings Not Reportable 09/07/18 05:40 Captiva Cells Not Reportable 09/07/18 05:40 Bite Cells Not Reportable 09/07/18 05:40 Crenated Cell Not Reportable 09/07/18 05:40 Elliptocytes Not Reportable 09/07/18 05:40 Acanthocytes (Spur) Not Reportable 09/07/18 05:40 Rouleaux Not Reportable 09/07/18 05:40 Hemoglobin C Crystals Not Reportable 09/07/18 05:40 Schistocytes Not Reportable 09/07/18 05:40 Malaria parasites Not Reportable 09/07/18 05:40 Ceasar Bodies Not Reportable 09/07/18 05:40 Hem Pathologist Commnt No 09/07/18 05:40 D-Dimer 2768.33 ng/mlDDU (0-234) H 08/15/18 18:31 Heparin Anti-Xa, Unfract Negative (Negative) 08/22/18 15:29 POC ABG pH 7.517 (7.35-7.45) H 09/12/18 03:16 POC ABG pCO2 48.8 (35-45) H 09/12/18 03:16 POC ABG pO2 83 (80-105) 09/12/18 03:16 POC ABG HCO3 39.7 (22-26 mml/L) 09/12/18 03:16 POC ABG Total CO2 41 (23-27mmol/L) 09/12/18 03:16 POC ABG O2 Sat 97 09/12/18 03:16 POC ABG Base Excess 17 ((-2) - (+3)mmol/L) 09/12/18 03:16 VBG pH 7.187 (7.320-7.420) L* 08/15/18 18:19 FiO2 50 % 09/12/18 03:16 Sodium 148 mmol/L (137-145) H 09/12/18 05:30 Potassium 3.6 mmol/L (3.6-5.0) 09/12/18 05:30 Chloride 102.7 mmol/L (98-107) 09/12/18 05:30 Carbon Dioxide 36 mmol/L (22-30) H 09/12/18 05:30 Anion Gap 13 mmol/L 09/12/18 05:30 BUN 46 mg/dL (7-17) H 09/12/18 05:30 Creatinine 0.7 mg/dL (0.7-1.2) 09/12/18 05:30 Estimated GFR > 60 ml/min 09/12/18 05:30 BUN/Creatinine Ratio 66 % 09/12/18 05:30 Glucose 152 mg/dL (65-100) H 09/12/18 05:30 POC Glucose 142 (70-105) H 09/12/18 18:02 Hemoglobin A1c 6.4 % (4-6) H 08/15/18 23:09 Lactic Acid 1.20 mmol/L (0.7-2.0) 08/22/18 15:29 Calcium 8.8 mg/dL (8.4-10.2) 09/12/18 05:30 Phosphorus 3.60 mg/dL (2.5-4.5) 09/11/18 01:10 Magnesium 1.90 mg/dL (1.7-2.3) 09/11/18 01:10 Iron 26 ug/dL (37-170) L 09/07/18 05:40 TIBC 150 mcg/dL (250-450) L 09/07/18 05:40 Ferritin 375.0 ng/mL (13.0-400.0) 09/07/18 05:40 Total Bilirubin 0.30 mg/dL (0.1-1.2) 09/11/18 01:10 AST 86 units/L (5-40) H 09/11/18 01:10 ALT 68 units/L (7-56) H 09/11/18 01:10 Alkaline Phosphatase 82 units/L (35-129) 09/11/18 01:10 Troponin T 0.317 ng/mL (0.00-0.029) H* D 08/18/18 13:39 C-Reactive Protein 5.00 mg/dL (0.00-1.30) H 08/25/18 05:20 Total Protein 6.5 g/dL (6.3-8.2) 09/11/18 01:10 Albumin 2.6 g/dL (3.9-5) L 09/11/18 01:10 Albumin/Globulin Ratio 0.7 % 09/11/18 01:10 Triglycerides 197 mg/dL (2-149) H 08/22/18 06:45 Cholesterol 87 mg/dL (50-199) 08/15/18 18:31 LDL Cholesterol Direct 4 mg/dL (50-130) L 08/15/18 18:31 HDL Cholesterol 10 mg/dL (40-59) L 08/15/18 18:31 Cholesterol/HDL Ratio 8.70 % 08/15/18 18:31 Serotonin Release Assay See scanned results 08/22/18 15:29 Vitamin B12 388.4 pg/mL (211-911) 09/07/18 05:40 Folate 19.01 ng/mL (7.3-26.0) 09/07/18 05:40 Total Cortisol 21.4 mcg/dL () 08/25/18 08:52 Urine Color Rosemarie (Yellow) 08/15/18 19:15 Urine Turbidity Cloudy (Clear) 08/15/18 19:15 Urine pH 5.0 (5.0-7.0) 08/15/18 19:15 Ur Specific [place] 1.025 (1.003-1.030) 08/15/18 19:15 Urine Protein 30 mg/dl mg/dL (Negative) 08/15/18 19:15 Urine Glucose (UA) Neg mg/dL (Negative) 08/15/18 19:15 Urine Ketones Neg mg/dL (Negative) 08/15/18 19:15 Urine Blood Mod (Negative) 08/15/18 19:15 Urine Nitrite Neg (Negative) 08/15/18 19:15 Urine Bilirubin Neg (Negative) 08/15/18 19:15 Urine Urobilinogen 2.0 mg/dL (<2.0) 08/15/18 19:15 Ur Leukocyte Esterase Mod (Negative) 08/15/18 19:15 Urine WBC (Auto) 17.0 /HPF (0.0-6.0) H 08/15/18 19:15 Urine RBC (Auto) 5.0 /HPF (0.0-6.0) 08/15/18 19:15 Urine WBC Clumps 2+ /HPF 08/15/18 19:15 Amorphous Crystals 1+ 08/15/18 19:15 Hyaline Casts 54 /LPF 08/15/18 19:15 Granular Casts 14 /LPF 08/15/18 19:15 Urine Mucus Few /HPF 08/15/18 19:15 Vancomycin Trough 28.6 ug/mL (5.0-20.0) H 09/06/18 14:40 Salicylates < 0.3 mg/dL (2.8-20.0) L 08/15/18 19:14 Urine Opiates Screen Presumptive positive 08/15/18 19:15 Urine Methadone Screen Presumptive negative 08/15/18 19:15 Acetaminophen < 5.0 ug/mL (10.0-30.0) L 08/15/18 19:14 Ur Barbiturates Screen Presumptive negative 08/15/18 19:15 Ur Phencyclidine Scrn Presumptive negative 08/15/18 19:15 Ur Amphetamines Screen Presumptive negative 08/15/18 19:15 U Benzodiazepines Scrn Presumptive negative 08/15/18 19:15 Urine Cocaine Screen Presumptive negative 08/15/18 19:15 U Marijuana (THC) Screen Presumptive negative 08/15/18 19:15 Drugs of Abuse Note Disclamer 08/15/18 19:15 Heparin-induced Plt Ab Negative (Negative) 08/22/18 15:29 UF Heparin High Dose 0 % Release 08/22/18 15:29 NAZIA UFH Low Dose 0.1 0 % Release 08/22/18 15:29 NAZIA UFH Low Dose 0.5 0 % Release 08/22/18 15:29 Lymph Enumerat CD4/CD8 1.98 (0.86-5.00) 08/19/18 14:32 % CD3 Cells 44 % (57-85) L 08/19/18 14:32 Absolute CD3 Count 1451 cells/uL (840-3060) 08/19/18 14:32 % CD4 Cells 30 % (30-61) 08/19/18 14:32 Absolute CD4 Count 1004 cells/uL (490-1740) 08/19/18 14:32 % CD8 Cells 15 % (12-42) 08/19/18 14:32 Absolute CD8 Count 508 cells/uL (180-1170) 08/19/18 14:32 % CD19 Cells 41 % (6-29) H 08/19/18 14:32 Absolute CD19 Count 1290 cells/uL (110-660) H 08/19/18 14:32 C. difficile Toxin A&B Negative (Negative) 08/19/18 14:00 HIV 1&2 Antibody Rapid Non react (Non React) 08/18/18 13:39 HIV P24 Antigen Non react (Non React) 08/18/18 13:39 Miscellaneous Test Flexitest 1 08/30/18 10:00 Blood Type O POSITIVE 09/03/18 10:24 Antibody Screen Negative 09/03/18 10:24 Crossmatch See Detail 09/03/18 10:24 Active Medications - Current Medications Current Medications: Generic Name Dose Route Start Last Admin Trade Name Freq PRN Reason Stop Dose Admin Acetaminophen 650 mg 08/15/18 22:12 09/10/18 08:40 Tylenol PO 650 mg Q4H PRN Administration Pain MILD(1-3)/Fever >100.5/MONDRAGON Albuterol 2.5 mg 08/17/18 17:00 Proventil IH Q3HRT PRN Shortness Of Breath Albuterol/Ipratropium 1 ampul 08/20/18 14:00 09/12/18 13:39 Duoneb *Not For Prn Use* IH 1 ampul Q6HRT LAMAR Administration Lipase/Protease/Amylase 1 each 09/02/18 10:40 Alis Elizabeth 10,500 Unit FEEDTUBE PRN PRN For Clogged Feeding Tube Arformoterol Tartrate 15 mcg 08/18/18 20:00 09/12/18 08:08 Brovana Nebu IH 15 mcg Q12HRT LAMAR Administration Budesonide 0.5 mg 08/18/18 20:00 09/12/18 08:08 Pulmicort IH 0.5 mg Q12HRT LAMAR Administration Carvedilol 3.125 mg 08/26/18 15:19 09/12/18 09:10 Coreg PO 3.125 mg BID LAMAR Administration Famotidine 20 mg 09/05/18 10:00 09/12/18 09:10 Pepcid PO 20 mg BID LAMAR Administration Fondaparinux 7.5 mg 09/07/18 10:00 09/12/18 09:09 Arixtra SUB-Q 7.5 mg DAILY LAMAR Administration Hydralazine HCl 10 mg 08/19/18 13:59 09/10/18 19:32 Apresoline IV 10 mg Q3H PRN Administration Hydralazine HCl 25 mg 09/01/18 14:00 09/12/18 15:05 Apresoline PO 25 mg Q8HR LAMAR Administration Hydromorphone HCl 1 mg 09/06/18 10:38 09/12/18 16:30 Dilaudid IV 1 mg Q4H PRN Administration Pain , Severe (7-10) Hydromorphone HCl 2 mg 09/06/18 12:00 09/12/18 18:00 Dilaudid PO 2 mg Q6HR LAMAR Administration Hydrophilic Ointment 1 applic 08/15/18 21:55 09/01/18 09:07 Vaseline Lip Therapy TP 1 applic Q2HR PRN Administration Dry Lips Fentanyl Citrate 2,000 mcg in 100 mls @ 4.765 mls/hr 09/02/18 11:00 09/12/18 18:01 Fentanyl Drip Premix IV 4 mcg/kg/hr TITR LAMAR 19.06 mls/hr Administration Protocol 1 MCG/KG/HR Dextrose 1,000 mls @ 75 mls/hr 09/12/18 10:00 09/12/18 10:51 D5w IV 09/12/18 23:19 75 mls/hr DIRECT LAMAR Administration Insulin Human Lispro 0 unit 09/04/18 18:00 09/12/18 18:01 Humalog SUB-Q Not Given Q6HR [facility] Protocol Metoclopramide HCl 5 mg 08/15/18 22:50 Reglan IV Q6H PRN Nausea And Vomiting Midazolam HCl 1 mg 09/07/18 09:23 09/12/18 17:34 Versed IV 1 mg Q4H PRN Administration AGITATION Ondansetron HCl 4 mg 08/15/18 22:12 08/31/18 17:52 Zofran IV 4 mg Q8H PRN Administration Nausea And Vomiting Potassium Chloride 20 meq 09/10/18 10:00 09/12/18 09:10 Potassium Chloride FEEDTUBE 20 meq QDAY LAMAR Administration Quetiapine Fumarate 200 mg 09/04/18 15:00 09/12/18 09:10 Seroquel PO 200 mg BID LAMAR Administration Senna/Docusate Sodium 2 tab 09/06/18 11:00 09/12/18 09:10 Senokot S PO 2 tab BID LAMAR Administration Simple Syrup 15 ml 09/02/18 11:24 Simple Syrup FEEDTUBE PRN PRN Hypoglycemia Simple Syrup 30 ml 09/02/18 11:24 Simple Syrup FEEDTUBE PRN PRN Hypoglycemia Sodium Bicarbonate 325 mg 09/02/18 10:40 Sodium Bicarbonate FEEDTUBE PRN PRN For Clogged Feeding Tube Sodium Chloride 10 ml 08/15/18 22:12 09/07/18 22:25 Sodium Chloride Flush Syringe 10 Ml IV 10 ml PRN PRN Administration LINE FLUSH Nutrition/Malnutrition Assess - Dietary Evaluation Nutrition/Malnutrition Findings: Nutrition Notes Start: 08/17/18 13:57 Freq: Status: Active Protocol: Document 09/06/18 11:37 [facility] (Rec: 09/06/18 11:45 [facility]- [id number]) Nutrition Notes Initial or Follow up Reassessment Current Diagnosis Acute Kidney Injury,COPD, Diabetes,Sepsis,Hypertension, Respiratory Failure, Hyperlipidemia Other Pertinent Diagnosis AMS, hypokalemia, NSTEMI, encephalopathy, pneu, hypernatermia, shock liver Current Diet TF - Vital High Protein at 55ml/hr Labs/Tests Reviewed (Na lab WNL) Pertinent Medications Morphine, Senokot BID Height 5 ft 7 in Weight 100.2 kg [place] Body Weight (kg) 61.36 BMI 34.6 Weight change and time frame Current wt obtained from bed scale Subjective/Other Information Pt tolerating TF at goal rate. Per RN, pt receiving 200ml water flushes q4h. Pt remains on vent support and has rectal tube. Pt also on 2 abx . Spoke with RN about necessity of scheduled senokot . RN says senokot ordered sec to morphine. Percent of energy/protein needs met: 70% energy 94% pro #1 Nutrition Diagnosis Inadequate oral intake Diagnosis Progress(for reassessment Continues documentation) Is patient on ventilator? Yes Is Patient Ambulatory and/or Out of Bed No REE-([facility]-confined to bed) [phone] Calculation Used for Recommendations 65-70% energy needs Additional Notes Pro needs 2g/kg IBW: 123g/day Fluid needs 1ml/kcal Nutrition Intervention Nutrition Support: Continue Vital High Protein at 55ml/hr. Provide 50ml water flush q4h. Kcal 1,320 Protein (gm) 116 Fluid (mL) 1,103 Goal #1 TF tolerance Goal #2 TF to meet 65-70% energy and 80-100% pro needs Follow-Up By: 09/13/18 Additional Comments F/U: stable TF, vent status, wt, decrease water flush to 50q4h if Na lab remains WNL
[2018-09-12] MEDS: SODIUM CHLORIDE FLUSH SYRINGE 10 ML IV PRN (22:05)
[2018-09-13] MEDS: fentaNYL DRIP Premix 2,000 MCG/100 ML BAG IV SCH ×4 (02:11→19:16)
[2018-09-13] MEDS: DUONEB *Not for PRN Use IH SCH ×4 (02:26→19:51)
--- NOTE | 2018-09-13 02:54 | XRay Report ---
PROCEDURE: XR CHEST 1V AP TECHNIQUE: Chest radiograph single view. HISTORY: vent COMPARISONS: 09/06/2018 . FINDINGS: Heart: Heart is enlarged. Mediastinum/Vessels: Normal. Lungs/Pleural space: Lungs are expanded. There are fine reticular densities bilaterally suggesting r esidual interstitial infiltrates versus pulmonary edema. There is no airspace consolidation. There is no pleural effusion or pneumothorax.. Bony thorax: No acute osseous abnormality. Life support devices: The endotracheal tube is in the mid trachea. NG tube is in the stomach. There i s a right-sided PICC line. The tip is in the superior vena cava.. IMPRESSION: Heart is enlarged. Lungs are expanded. There are fine reticular densities bilaterally suggesting residual interstitial i nfiltrates versus pulmonary edema. There is no airspace consolidation. There is no pleural effusion o r pneumothorax. The endotracheal tube is in the mid trachea. NG tube is in the stomach. There is a right-sided PICC l ine. The tip is in the superior vena cava. This document is electronically signed by Reymundo De Los Santos MD., September 13 2018 02:52:09 AM ET
[2018-09-13 05:45] LABS: Hematocrit 22.4 % (30.3-42.9); Hemoglobin 7.6 gm/dl (10.1-14.3); Mean Corpuscular HGB Conc 34 % (30-34); Mean Corpuscular Volume 94 fl (79-97); Platelet Count 187 K/mm3 (140-440); Red Blood Count 2.38 M/mm3 (3.65-5.03); Red Cell Distribution Width 18.6 % (13.2-15.2)
[2018-09-13] MEDS: APRESOLINE PO SCH ×3 (05:55→21:53)
[2018-09-13] MEDS: DILAUDID PO SCH ×3 (05:55→18:36)
[2018-09-13] MEDS: HumaLOG SUB-Q SCH ×3 (05:56→18:37)
[2018-09-13 06:05] LABS: Alanine Aminotransferase 124 units/L (7-56); Albumin 2.6 g/dL (3.9-5); BUN/Creatinine Ratio 63; Blood Urea Nitrogen 38 mg/dL (7-17); Calcium 8.1 mg/dL (8.4-10.2); Hemolysis Index 1
--- NOTE | 2018-09-13 07:47 | Hem/Onc Progress Note ---
Assessment and Plan 1. Bilateral posterior tibial and peroneal vein deep venous thrombosis, left leg edema. 2. Thrombocytopenia. The patient was on heparin-based treatment. Now it is fondaparinux. 3. Anemia. At admission, hemoglobin was normal. The patient received blood transfusion. deficiency workup. There may be a bleeding component. 4. Pulmonary embolism study is negative. 5. Camryn infection. 6. Chronic obstructive pulmonary disease. 7. Thrombocytopenia may be medication related. Heparin antibodies has been ordered. ? micafungin 8. History of renal failure. Nephrology following. 9. Maxillary sinusitis. 10. Respiratory failure, on ventilator. 11. History of cardiomyopathy. 12. We will follow the trend of platelets. 13. The patient has Dodge catheter. 14. Encephalopathy. 15. Because of anemia - low plt, there is a question if inferior vena cava filter is better to prevent more pulmonary complications. 16. I will discuss with other team members. 09/08 IVC filter was discussed as pt has anemia pt looks at you 09/09 d/w - pt SOB - d/w them reg DVT - anemia - IVC filter plt normalized Ferritin - b12 - folate normal - iron low - will follow trache eval ongoing 09/10 more awake - moves leg to command IV iron trial plt was low - now normal 09/11 hb 8 awake on vent 09/12/2018 DVT - b/l leg - was on anticoag - pt planned to have procedure anemia - IV iron h/o low plt - better follows commands - moves leg 09/13 DVT - off lovenox - ? for procedure awake - follows commands still on vent anemia - will follow - s/p iv iron - Patient Problems (1) Thrombocytopenia Current Visit: Yes Status: Acute (2) DVT (deep venous thrombosis) Current Visit: Yes Status: Acute (3) Anemia Current Visit: Yes Status: Acute Subjective Date of service: 09/13/18 Principal diagnosis: dvt - anemia Interval history: more awake no bleeding Objective - Constitutional Vitals: Last Vital Signs Temp 100.7 F H 09/13/18 03:17 Pulse 77 09/13/18 06:00 Resp 17 09/13/18 06:00 BP 85/55 09/13/18 06:00 Pulse Ox 91 09/13/18 06:00 General appearance: no acute distress Performance status: 4-completely disabled - EENT Eyes: EOM intact ENT: other (intubated) - Neck Neck: normal ROM - Respiratory Respiratory effort: Positive: normal Respiratory: bilateral: CTA (anteriorly) - Cardiovascular Heart Sounds: Present: S1 & S2 Extremity abnormal: edema - Gastrointestinal General gastrointestinal: Present: soft, non-tender Rectal Exam: deferred - Genitourinary Female genitourinary: Present: deferred - Integumentary Integumentary: warm - Musculoskeletal Musculoskeletal: generalized weakness - Neurologic Neurologic: moves all extremities - Labs Lab Results: Laboratory Results - last 24 hr 09/12/18 09/12/18 09/12/18 11:36 18:02 23:19 WBC RBC Hgb Hct MCV MCH MCHC RDW Plt Count POC ABG pH POC ABG pCO2 POC ABG pO2 POC ABG HCO3 POC ABG Total CO2 POC ABG O2 Sat POC ABG Base Excess FiO2 Sodium Potassium Chloride Carbon Dioxide Anion Gap BUN Creatinine Estimated GFR BUN/Creatinine Ratio Glucose POC Glucose 212 H 142 H 161 H Calcium Total Bilirubin AST ALT Alkaline Phosphatase Total Protein Albumin Albumin/Globulin Ratio 09/13/18 09/13/18 09/13/18 03:55 05:11 05:25 WBC 7.1 RBC 2.38 L Hgb 7.6 L Hct 22.4 L MCV 94 MCH 32 MCHC 34 RDW 18.6 H Plt Count 187 POC ABG pH 7.520 H POC ABG pCO2 48.0 H POC ABG pO2 58 L POC ABG HCO3 39.2 POC ABG Total CO2 41 POC ABG O2 Sat 92 POC ABG Base Excess 16 FiO2 40 Sodium Potassium Chloride Carbon Dioxide Anion Gap BUN Creatinine Estimated GFR BUN/Creatinine Ratio Glucose POC Glucose 139 H Calcium Total Bilirubin AST ALT Alkaline Phosphatase Total Protein Albumin Albumin/Globulin Ratio 09/13/18 05:25 WBC RBC Hgb Hct MCV MCH MCHC RDW Plt Count POC ABG pH POC ABG pCO2 POC ABG pO2 POC ABG HCO3 POC ABG Total CO2 POC ABG O2 Sat POC ABG Base Excess FiO2 Sodium 143 Potassium 3.2 L Chloride 97.5 L Carbon Dioxide 38 H Anion Gap 11 BUN 38 H Creatinine 0.6 L Estimated GFR > 60 BUN/Creatinine Ratio 63 Glucose 120 H POC Glucose Calcium 8.1 L Total Bilirubin 0.40 AST 120 H ALT 124 H Alkaline Phosphatase 69 Total Protein 5.9 L Albumin 2.6 L Albumin/Globulin Ratio 0.8 Medications & Allergies - Medications Allergies/Adverse Reactions: Allergies No Known Allergies Allergy (Unverified 08/15/18 16:49) Home Medications: Home Medications Medication Instructions Recorded Confirmed Last Taken Type Carvedilol 6.25 mg PO BID 08/15/18 08/15/18 Unknown History DULoxetine 60 mg PO QDAY 08/15/18 08/15/18 Unknown History Gabapentin 600 mg PO Q6HR PRN 08/15/18 08/15/18 Unknown History Methylphenidate 5 mg PO TID 08/15/18 08/15/18 Unknown History Morphabond ER 60 mg PO Q12HR 08/15/18 08/15/18 Unknown History Pravastatin Sodium 10 mg PO QDAY 08/15/18 08/15/18 Unknown History Tizanidine HCl 4 mg PO Q12HR 08/15/18 08/15/18 Unknown History oxyCODONE /ACETAMINOPHEN 7.5 - 325 mg PO Q8HR 08/15/18 08/15/18 Unknown History ALBUTEROL Inhaler(NF) 90 mcg IH TID 08/29/18 08/29/18 Unknown History Omeprazole-Bicarb 40-1,100 Cap 40 mg PO DAILY 08/29/18 08/29/18 Unknown History Active Medications: Generic Name Dose Route Start Last Admin Trade Name Freq PRN Reason Stop Dose Admin Acetaminophen 650 mg 08/15/18 22:12 09/10/18 08:40 Tylenol PO 650 mg Q4H PRN Administration Pain MILD(1-3)/Fever >100.5/MONDRAGON Albuterol 2.5 mg 08/17/18 17:00 Proventil IH Q3HRT PRN Shortness Of Breath Albuterol/Ipratropium 1 ampul 08/20/18 14:00 09/13/18 02:26 Duoneb *Not For Prn Use* IH 1 ampul Q6HRT LAMAR Administration Lipase/Protease/Amylase 1 each 09/02/18 10:40 Pancresam Elizabeth 10,500 Unit FEEDTUBE PRN PRN For Clogged Feeding Tube Arformoterol Tartrate 15 mcg 08/18/18 20:00 09/12/18 19:18 Brovana Nebu IH 15 mcg Q12HRT LAMAR Administration Budesonide 0.5 mg 08/18/18 20:00 09/12/18 19:18 Pulmicort IH 0.5 mg Q12HRT LAMAR Administration Carvedilol 3.125 mg 08/26/18 15:19 09/12/18 23:42 Coreg PO 3.125 mg BID LAMAR Administration Famotidine 20 mg 09/05/18 10:00 09/12/18 22:05 Pepcid PO 20 mg BID LAMAR Administration Fondaparinux 7.5 mg 09/07/18 10:00 09/12/18 09:09 Arixtra SUB-Q 7.5 mg DAILY LAMAR Administration Hydralazine HCl 10 mg 08/19/18 13:59 09/10/18 19:32 Apresoline IV 10 mg Q3H PRN Administration Hydralazine HCl 25 mg 09/01/18 14:00 09/13/18 05:55 Apresoline PO 25 mg Q8HR LAMAR Administration Hydromorphone HCl 1 mg 09/06/18 10:38 09/12/18 16:30 Dilaudid IV 1 mg Q4H PRN Administration Pain , Severe (7-10) Hydromorphone HCl 2 mg 09/06/18 12:00 09/13/18 05:55 Dilaudid PO 2 mg Q6HR [facility] Administration Hydrophilic Ointment 1 applic 08/15/18 21:55 09/01/18 09:07 Vaseline Lip Therapy TP 1 applic Q2HR PRN Administration Dry Lips Fentanyl Citrate 2,000 mcg in 100 mls @ 4.765 mls/hr 09/02/18 11:00 09/13/18 02:11 Fentanyl Drip Premix IV 4 mcg/kg/hr TITR LAMAR 19.06 mls/hr Administration Protocol 1 MCG/KG/HR Insulin Human Lispro 0 unit 09/04/18 18:00 09/13/18 05:56 Humalog SUB-Q Not Given Q6HR [facility] Protocol Metoclopramide HCl 5 mg 08/15/18 22:50 Reglan IV Q6H PRN Nausea And Vomiting Midazolam HCl 1 mg 09/07/18 09:23 09/12/18 17:34 Versed IV 1 mg Q4H PRN Administration AGITATION Ondansetron HCl 4 mg 08/15/18 22:12 08/31/18 17:52 Zofran IV 4 mg Q8H PRN Administration Nausea And Vomiting Potassium Chloride 20 meq 09/10/18 10:00 09/12/18 09:10 Potassium Chloride FEEDTUBE 20 meq QDAY [facility] Administration Quetiapine Fumarate 200 mg 09/04/18 15:00 09/12/18 22:05 Seroquel PO 200 mg BID L[facility]AR Administration Senna/Docusate Sodium 2 tab 09/06/18 11:00 09/12/18 22:04 Senokot S PO 2 tab BID L[facility]AR Administration Simple Syrup 15 ml 09/02/18 11:24 Simple Syrup FEEDTUBE PRN PRN Hypoglycemia Simple Syrup 30 ml 09/02/18 11:24 Simple Syrup FEEDTUBE PRN PRN Hypoglycemia Sodium Bicarbonate 325 mg 09/02/18 10:40 Sodium Bicarbonate FEEDTUBE PRN PRN For Clogged Feeding Tube Sodium Chloride 10 ml 08/15/18 22:12 09/12/18 22:05 Sodium Chloride Flush Syringe 10 Ml IV 10 ml PRN PRN Administration LINE FLUSH
[2018-09-13] MEDS: PULMICORT IH SCH ×2 (07:52→19:51)
[2018-09-13] MEDS: BROVANA NEBU IH SCH ×2 (07:52→19:51)
[2018-09-13] MEDS: POTASSIUM CHLORIDE FEEDTUBE SCH ×3 (08:34→13:16)
--- NOTE | 2018-09-13 09:59 | Progress Note ---
Assessment and Plan 68 yo F with VDRF Plan: CXR reviewed 09/13/18 Discussed trach/PEG with last week and he was agreeable to proceed. Patient's Vent settings significantly improved since last week, now on AC PEEP 10 and FIO2 45%. 1. Will proceed with trach/PEG - scheduled for Wednesday09/14/18 @ 1330 2. Discussed procedures again with . Joaquin Herbert, patient's over the telephone. All risks, benefits, and alternatives discussed and questions answered. Consent obtained and witnessed. 3. Vent management per ICU 4. hold TF after MN tonight 5. Arixtra on hold Discussed with patient's nurse Louis. Thank you, please call with questions Subjective Date of service: 09/13/18 Narrative: Pt seen and examined. No acute changes in condition. Objective Vital Signs - 12hr 09/12/18 09/12/18 09/12/18 22:00 23:00 23:02 Temperature Pulse Rate 71 67 67 Pulse Rate [ Anterior Bilateral Throughout] Pulse Rate [ From Monitor] Respiratory 19 25 H 17 Rate Respiratory Rate [Anterior Bilateral Throughout] Blood Pressure 100/36 104/43 104/43 O2 Sat by Pulse 91 92 92 Oximetry 09/12/18 09/12/18 09/12/18 23:05 23:30 23:41 Temperature 100.9 F H Pulse Rate 70 71 Pulse Rate [ Anterior Bilateral Throughout] Pulse Rate [ From Monitor] Respiratory Rate Respiratory Rate [Anterior Bilateral Throughout] Blood Pressure 104/43 118/51 O2 Sat by Pulse 93 Oximetry 09/12/18 09/13/18 09/13/18 23:42 00:00 01:00 Temperature Pulse Rate 73 68 69 Pulse Rate [ Anterior Bilateral Throughout] Pulse Rate [ 70 From Monitor] Respiratory 23 18 Rate Respiratory Rate [Anterior Bilateral Throughout] Blood Pressure 118/51 119/45 115/67 O2 Sat by Pulse 91 Oximetry 09/13/18 09/13/18 09/13/18 02:00 02:26 02:41 Temperature Pulse Rate 77 Pulse Rate [ 84 86 Anterior Bilateral Throughout] Pulse Rate [ From Monitor] Respiratory 11 L Rate Respiratory 26 H 26 H Rate [Anterior Bilateral Throughout] Blood Pressure 131/55 O2 Sat by Pulse 91 Oximetry 09/13/18 09/13/18 09/13/18 03:00 03:17 03:51 Temperature 100.7 F H Pulse Rate 71 74 Pulse Rate [ Anterior Bilateral Throughout] Pulse Rate [ From Monitor] Respiratory 25 H Rate Respiratory Rate [Anterior Bilateral Throughout] Blood Pressure 119/52 119/52 O2 Sat by Pulse 91 Oximetry 09/13/18 09/13/18 09/13/18 04:00 05:00 05:55 Temperature Pulse Rate 75 70 75 Pulse Rate [ Anterior Bilateral Throughout] Pulse Rate [ 74 From Monitor] Respiratory 14 14 Rate Respiratory Rate [Anterior Bilateral Throughout] Blood Pressure 131/85 131/85 137/55 O2 Sat by Pulse 90 Oximetry 09/13/18 09/13/18 09/13/18 06:00 07:00 07:53 Temperature Pulse Rate 77 83 78 Pulse Rate [ 76 Anterior Bilateral Throughout] Pulse Rate [ From Monitor] Respiratory 17 21 Rate Respiratory 16 Rate [Anterior Bilateral Throughout] Blood Pressure 85/55 124/41 124/41 O2 Sat by Pulse 91 91 92 Oximetry 09/13/18 09/13/18 08:00 08:10 Temperature 100.1 F H Pulse Rate 81 Pulse Rate [ 80 Anterior Bilateral Throughout] Pulse Rate [ 76 From Monitor] Respiratory 25 H Rate Respiratory 18 Rate [Anterior Bilateral Throughout] Blood Pressure 99/39 O2 Sat by Pulse 95 Oximetry - General physical appearance Narrative Exam: Gen: Awake on vent ENT: ETT in place CV: s1, S2+ resp: on vent Ext: + edema - Labs 09/13/18 05:25 09/13/18 05:25 Diabetes panel 09/13/18 Range/Units 05:25 Sodium 143 (137-145) mmol/L Potassium 3.2 L (3.6-5.0) mmol/L Chloride 97.5 L (98-107) mmol/L Carbon Dioxide 38 H (22-30) mmol/L BUN 38 H (7-17) mg/dL Creatinine 0.6 L (0.7-1.2) mg/dL Glucose 120 H (65-100) mg/dL Calcium 8.1 L (8.4-10.2) mg/dL AST 120 H (5-40) units/L ALT 124 H (7-56) units/L Alkaline Phosphatase 69 (35-129) units/L Total Protein 5.9 L (6.3-8.2) g/dL Albumin 2.6 L (3.9-5) g/dL Calcium panel 09/13/18 Range/Units 05:25 Calcium 8.1 L (8.4-10.2) mg/dL Albumin 2.6 L (3.9-5) g/dL Pituitary panel 09/13/18 Range/Units 05:25 Sodium 143 (137-145) mmol/L Potassium 3.2 L (3.6-5.0) mmol/L Chloride 97.5 L (98-107) mmol/L Carbon Dioxide 38 H (22-30) mmol/L BUN 38 H (7-17) mg/dL Creatinine 0.6 L (0.7-1.2) mg/dL Glucose 120 H (65-100) mg/dL Calcium 8.1 L (8.4-10.2) mg/dL Adrenal panel 09/13/18 Range/Units 05:25 Sodium 143 (137-145) mmol/L Potassium 3.2 L (3.6-5.0) mmol/L Chloride 97.5 L (98-107) mmol/L Carbon Dioxide 38 H (22-30) mmol/L BUN 38 H (7-17) mg/dL Creatinine 0.6 L (0.7-1.2) mg/dL Glucose 120 H (65-100) mg/dL Calcium 8.1 L (8.4-10.2) mg/dL Total Bilirubin 0.40 (0.1-1.2) mg/dL AST 120 H (5-40) units/L ALT 124 H (7-56) units/L Alkaline Phosphatase 69 (35-129) units/L Total Protein 5.9 L (6.3-8.2) g/dL Albumin 2.6 L (3.9-5) g/dL
[2018-09-13] MEDS: COREG PO SCH ×2 (10:10→21:52)
[2018-09-13] MEDS: PEPCID PO SCH ×2 (10:10→21:52)
[2018-09-13] MEDS: SENOKOT S PO SCH ×2 (10:10→21:52)
--- NOTE | 2018-09-13 10:17 | Progress Note ---
Assessment and Plan Severe sepsis Intermittent fevers and leukocytosis, resolved Fungemia s/p antifungal therapy Acute hypoxic-hypercapnic respiratory failure on MVS, re-intubated h/o COPD LLExt DVT on Fondaparinux Acute kidney injury, resolved Acute encephalopathy( toxic-metabolic) Aspiration pneumonia/CAP New onset cardiomyopathy, LVEF 25-30% this admission Previous echo 03/30/2016 at [facility] revealed normal LVEF Previous stress MPI 03/29/2016 at [facility] revealed no ischemia Abnormal ECG showing LBBB, chronic Anemia s/p PRBC -Recent EGD at [facility] 08/08/2018 revealing irregular Z line, gastritis and small hiatal hernia Recent colonoscopy at [facility] 08/08/2018 revealing sigmoid polyp, transverse colon polyps, inflamed hemorrhoids and diverticulosis E.coli/Staph pneumonia Thrombocytopenia resolved Hypernatremia, resolved Hypokalemia , replete -Continue with MVS -VAP bundle addressed -Aspiration precautions -Wean supplemental oxygen and PEEP to keep O2 sats 88-90% -ABG and CXR in the morning -OGT for free water, medications and nutritional support. - Agitation and analgesia management -Monitor renal indices while on diuretics, discontinue IV lasix , continue as oral prepartion -Monitor hemodynamics -Cardioprotective measures -Stress ulcer prophylaxis -Aspiration precautions -Accuchecks with glycemic control. Target glucose of 140-180 mg/dL -Continue bronchodilators with pulmonary hygiene per RT -Maintenance of sleep -wake cycle -Mobility program -Agitation and analgesia -Influenza and pneumonia vaccination per protocol ..care plan discussed at length with RN/RT at the bedside Discussed with the at the bedside. Updated him and care plan discussed. He is agreeable to trach placement. Trachesotomy scheduled for tomorrow NPO post midnight Hold Fondaparinux for procedure PROGNOSIS :GUARDED CONDITION: CRITICAL CODE STATUS: FULL CODE The high probability of a clinically significant, sudden or life-threatening deterioration of the [respiratory, cardiovascular, renal] system(s) required my full and direct attention, intervention and personal management. The aggregate critical care time was [35] minutes without overlap. Time includes spent on; [x] Data Review and interpretation [x] Patient assessment and monitoring of vital signs [x] Documentation [x] Medication orders and management Subjective Date of service: 09/13/18 Principal diagnosis: anemia Interval history: Follow up: Aspiration PNA, Abnormal CXR, Hypotension, Acute renal failure, Acute encephaloapthy, Acute hypoxemic respiratory failure on MVS Seen and examined. Vitals, labs, medications, chart and imaging reviewed. 24 hours events reviewed. No fevers, no vomiting, agitation much improved. More awake and alert, tracking voice, obeying simple commands though inconsistently Remains orally intubated, critically ill. On fentanyl at 4mcg She remains on Full mechanical ventilaotry support AC 25/450/PEEP of 10, FIO2 40%, ABG 7.52/48/58/39.2 at the bedside. Objective Vital Signs - 12hr 09/12/18 09/12/18 09/12/18 23:00 23:02 23:05 Temperature 100.9 F H Pulse Rate 67 67 Pulse Rate [ Anterior Bilateral Throughout] Pulse Rate [ From Monitor] Respiratory 25 H 17 Rate Respiratory Rate [Anterior Bilateral Throughout] Blood Pressure 104/43 104/43 O2 Sat by Pulse 92 92 Oximetry 09/12/18 09/12/18 09/12/18 23:30 23:41 23:42 Temperature Pulse Rate 70 71 73 Pulse Rate [ Anterior Bilateral Throughout] Pulse Rate [ From Monitor] Respiratory Rate Respiratory Rate [Anterior Bilateral Throughout] Blood Pressure 104/43 118/51 118/51 O2 Sat by Pulse 93 Oximetry 09/13/18 09/13/18 09/13/18 00:00 01:00 02:00 Temperature Pulse Rate 68 69 77 Pulse Rate [ Anterior Bilateral Throughout] Pulse Rate [ 70 From Monitor] Respiratory 23 18 11 L Rate Respiratory Rate [Anterior Bilateral Throughout] Blood Pressure 119/45 115/67 131/55 O2 Sat by Pulse 91 91 Oximetry 09/13/18 09/13/18 09/13/18 02:26 02:41 03:00 Temperature Pulse Rate 71 Pulse Rate [ 84 86 Anterior Bilateral Throughout] Pulse Rate [ From Monitor] Respiratory 25 H Rate Respiratory 26 H 26 H Rate [Anterior Bilateral Throughout] Blood Pressure 119/52 O2 Sat by Pulse Oximetry 09/13/18 09/13/18 09/13/18 03:17 03:51 04:00 Temperature 100.7 F H Pulse Rate 74 75 Pulse Rate [ Anterior Bilateral Throughout] Pulse Rate [ 74 From Monitor] Respiratory 14 Rate Respiratory Rate [Anterior Bilateral Throughout] Blood Pressure 119/52 131/85 O2 Sat by Pulse 91 90 Oximetry 04/09/13/18 09/13/18 05:00 05:55 06:00 Temperature Pulse Rate 70 75 77 Pulse Rate [ Anterior Bilateral Throughout] Pulse Rate [ From Monitor] Respiratory 14 17 Rate Respiratory Rate [Anterior Bilateral Throughout] Blood Pressure 131/85 137/55 85/55 O2 Sat by Pulse 91 Oximetry 09/13/18 09/13/18 09/13/18 07:00 07:53 08:00 Temperature 100.1 F H Pulse Rate 83 78 81 Pulse Rate [ 76 Anterior Bilateral Throughout] Pulse Rate [ 76 From Monitor] Respiratory 21 25 H Rate Respiratory 16 Rate [Anterior Bilateral Throughout] Blood Pressure 124/41 124/41 99/39 O2 Sat by Pulse 91 92 95 Oximetry 09/13/18 09/13/18 08:10 10:10 Temperature Pulse Rate 78 Pulse Rate [ 80 Anterior Bilateral Throughout] Pulse Rate [ From Monitor] Respiratory Rate Respiratory 18 Rate [Anterior Bilateral Throughout] Blood Pressure 96/44 O2 Sat by Pulse Oximetry Constitutional: appears uncomfortable, other (elderly looking CF, normocephalic and atraumatic) Eyes: non-icteric ENT: oropharynx moist, other (ETT 23 cm MARTHA) Neck: supple, no lymphadenopathy, no JVD, other (no thyromegaly) Effort: mildly labored Ascultation: Bilateral: diminished breath sounds, rales, rhonchi Percussion: Bilateral: not dull Cardiovascular: regular rate and rhythm, other (S1,S2, no murmurs, gallops or rubs) Gastrointestinal: normoactive bowel sounds, soft, non-tender, non-distended Integumentary: normal Extremities: no cyanosis, no ischemia or petechiae, edema (Left lower extremity) Neurologic: non-focal exam (grossly, moves all extremities, squeezes my hand on command), pupils equal and round, motor strength normal and Psychiatric: other (unable to assess) CBC and BMP: 09/13/18 05:25 09/13/18 05:25 ABG, PT/INR, D-dimer: ABG POC ABG pH 7.520 (7.35-7.45) H 09/13/18 03:55 POC ABG pCO2 48.0 (35-45) H 09/13/18 03:55 POC ABG pO2 58 (80-105) L 09/13/18 03:55 POC ABG HCO3 39.2 (22-26 mml/L) 09/13/18 03:55 POC ABG Total CO2 41 (23-27mmol/L) 09/13/18 03:55 POC ABG O2 Sat 92 09/13/18 03:55 PT/INR, D-dimer D-Dimer 2768.33 ng/mlDDU (0-234) H 08/15/18 18:31 Abnormal lab findings: Abnormal Labs 08/15/18 08/15/18 08/15/18 17:52 17:52 17:52 WBC 12.7 H RBC 3.25 L Hgb Hct RDW Plt Count Lymph % (Auto) [place] % (Auto) Lymph # [place] # Seg Neutrophils % Seg Neuts % (Manual) Lymphocytes % (Manual) 6.0 L Nucleated RBC % Seg Neutrophils # Seg Neutrophils # Man Lymphocytes # (Manual) 0.8 L D-Dimer POC ABG pH POC ABG pCO2 POC ABG pO2 VBG pH Sodium Potassium 3.4 L Chloride 94.6 L Carbon Dioxide 17 L BUN 67 H Creatinine 3.5 H Glucose 131 H POC Glucose Hemoglobin A1c Lactic Acid 5.20 H* Calcium 7.6 L Phosphorus Magnesium Iron TIBC AST 887 H ALT 316 H Troponin T C-Reactive Protein Total Protein Albumin 3.1 L Triglycerides LDL Cholesterol Direct HDL Cholesterol Urine WBC (Auto) Vancomycin Trough Salicylates Acetaminophen % CD3 Cells % CD19 Cells Absolute CD19 Count Miscellaneous Test Crossmatch 08/15/18 08/15/18 08/15/18 18:11 18:19 18:31 WBC RBC Hgb Hct RDW Plt Count Lymph % (Auto) [place] % (Auto) Lymph # [place] # Seg Neutrophils % Seg Neuts % (Manual) Lymphocytes % (Manual) Nucleated RBC % Seg Neutrophils # Seg Neutrophils # Man Lymphocytes # (Manual) D-Dimer 2768.33 H POC ABG pH 7.173 L POC ABG pCO2 47.8 H POC ABG pO2 177 H VBG pH 7.187 L* Sodium Potassium Chloride Carbon Dioxide BUN Creatinine Glucose POC Glucose Hemoglobin A1c Lactic Acid Calcium Phosphorus Magnesium Iron TIBC AST ALT Troponin T C-Reactive Protein Total Protein Albumin Triglycerides LDL Cholesterol Direct HDL Cholesterol Urine WBC (Auto) Vancomycin Trough Salicylates Acetaminophen % CD3 Cells % CD19 Cells Absolute CD19 Count Miscellaneous Test Crossmatch 08/15/18 08/15/18 08/15/18 18:31 19:14 19:14 WBC RBC Hgb Hct RDW Plt Count Lymph % (Auto) [place] % (Auto) Lymph # [place] # Seg Neutrophils % Seg Neuts % (Manual) Lymphocytes % (Manual) Nucleated RBC % Seg Neutrophils # Seg Neutrophils # Man Lymphocytes # (Manual) D-Dimer POC ABG pH POC ABG pCO2 POC ABG pO2 VBG pH Sodium Potassium Chloride Carbon Dioxide BUN Creatinine Glucose POC Glucose Hemoglobin A1c Lactic Acid 2.70 H* Calcium Phosphorus Magnesium Iron TIBC AST ALT Troponin T 0.454 H* C-Reactive Protein Total Protein Albumin Triglycerides 356 H LDL Cholesterol Direct 4 L HDL Cholesterol 10 L Urine WBC (Auto) Vancomycin Trough Salicylates < 0.3 L Acetaminophen % CD3 Cells % CD19 Cells Absolute CD19 Count Miscellaneous Test Crossmatch 08/15/18 08/15/18 08/15/18 19:14 19:15 23:09 WBC RBC Hgb Hct RDW Plt Count Lymph % (Auto) [place] % (Auto) Lymph # [place] # Seg Neutrophils % Seg Neuts % (Manual) Lymphocytes % (Manual) Nucleated RBC % Seg Neutrophils # Seg Neutrophils # Man Lymphocytes # (Manual) D-Dimer POC ABG pH POC ABG pCO2 POC ABG pO2 VBG pH Sodium Potassium Chloride Carbon Dioxide BUN Creatinine Glucose POC Glucose Hemoglobin A1c Lactic Acid 3.20 H* Calcium Phosphorus Magnesium Iron TIBC AST ALT Troponin T C-Reactive Protein Total Protein Albumin Triglycerides LDL Cholesterol Direct HDL Cholesterol Urine WBC (Auto) 17.0 H Vancomycin Trough Salicylates Acetaminophen < 5.0 L % CD3 Cells % CD19 Cells Absolute CD19 Count Miscellaneous Test Crossmatch 08/15/18 08/16/18 08/16/18 23:09 01:41 05:38 WBC RBC 3.07 L Hgb 9.8 L Hct 28.7 L RDW Plt Count Lymph % (Auto) [place] % (Auto) Lymph # [place] # Seg Neutrophils % Seg Neuts % (Manual) 84.0 H Lymphocytes % (Manual) 6.0 L Nucleated RBC % 4.0 H Seg Neutrophils # Seg Neutrophils # Man Lymphocytes # (Manual) 0.5 L D-Dimer POC ABG pH 7.323 L POC ABG pCO2 34.7 L POC ABG pO2 78 L VBG pH Sodium Potassium Chloride Carbon Dioxide BUN Creatinine Glucose POC Glucose Hemoglobin A1c 6.4 H Lactic Acid Calcium Phosphorus Magnesium Iron TIBC AST ALT Troponin T C-Reactive Protein Total Protein Albumin Triglycerides LDL Cholesterol Direct HDL Cholesterol Urine WBC (Auto) Vancomycin Trough Salicylates Acetaminophen % CD3 Cells % CD19 Cells Absolute CD19 Count Miscellaneous Test Crossmatch 08/16/18 08/16/18 08/17/18 05:38 22:43 03:42 WBC RBC Hgb Hct RDW Plt Count Lymph % (Auto) [place] % (Auto) Lymph # [place] # Seg Neutrophils % Seg Neuts % (Manual) Lymphocytes % (Manual) Nucleated RBC % Seg Neutrophils # Seg Neutrophils # Man Lymphocytes # (Manual) D-Dimer POC ABG pH POC ABG pCO2 POC ABG pO2 VBG pH Sodium Potassium 2.9 L* 3.1 L 2.9 L* Chloride 108.8 H 111.9 H Carbon Dioxide 17 L 19 L 21 L BUN 62 H 40 H 33 H Creatinine 2.0 H Glucose 139 H 145 H POC Glucose Hemoglobin A1c Lactic Acid Calcium 7.8 L 8.3 L Phosphorus 1.50 L Magnesium Iron TIBC AST 619 H ALT 353 H Troponin T C-Reactive Protein Total Protein 6.1 L Albumin 2.8 L Triglycerides LDL Cholesterol Direct HDL Cholesterol Urine WBC (Auto) Vancomycin Trough Salicylates Acetaminophen % CD3 Cells % CD19 Cells Absolute CD19 Count Miscellaneous Test Crossmatch 08/17/18 08/17/18 08/18/18 11:02 16:42 03:28 WBC RBC Hgb Hct RDW Plt Count Lymph % (Auto) [place] % (Auto) Lymph # [place] # Seg Neutrophils % Seg Neuts % (Manual) Lymphocytes % (Manual) Nucleated RBC % Seg Neutrophils # Seg Neutrophils # Man Lymphocytes # (Manual) D-Dimer POC ABG pH 7.483 H 7.499 H POC ABG pCO2 POC ABG pO2 VBG pH Sodium 147 H Potassium 3.2 L Chloride 115.8 H Carbon Dioxide BUN 23 H Creatinine Glucose 121 H POC Glucose Hemoglobin A1c Lactic Acid Calcium 8.1 L Phosphorus 2.30 L D Magnesium Iron TIBC AST ALT Troponin T C-Reactive Protein Total Protein Albumin Triglycerides LDL Cholesterol Direct HDL Cholesterol Urine WBC (Auto) Vancomycin Trough Salicylates Acetaminophen % CD3 Cells % CD19 Cells Absolute CD19 Count Miscellaneous Test Crossmatch 08/18/18 08/18/18 08/18/18 04:10 13:39 13:39 WBC RBC Hgb Hct RDW Plt Count Lymph % (Auto) [place] % (Auto) Lymph # [place] # Seg Neutrophils % Seg Neuts % (Manual) Lymphocytes % (Manual) Nucleated RBC % Seg Neutrophils # Seg Neutrophils # Man Lymphocytes # (Manual) D-Dimer POC ABG pH POC ABG pCO2 POC ABG pO2 VBG pH Sodium 147 H Potassium 3.3 L Chloride 111.9 H Carbon Dioxide BUN 21 H Creatinine Glucose 113 H POC Glucose Hemoglobin A1c Lactic Acid Calcium Phosphorus 1.50 L D Magnesium Iron TIBC AST ALT Troponin T 0.317 H* D C-Reactive Protein 10.70 H Total Protein Albumin Triglycerides LDL Cholesterol Direct HDL Cholesterol Urine WBC (Auto) Vancomycin Trough Salicylates Acetaminophen % CD3 Cells % CD19 Cells Absolute CD19 Count Miscellaneous Test Crossmatch 08/18/18 08/19/18 08/19/18 16:51 03:47 04:15 WBC RBC Hgb Hct RDW Plt Count Lymph % (Auto) [place] % (Auto) Lymph # [place] # Seg Neutrophils % Seg Neuts % (Manual) Lymphocytes % (Manual) Nucleated RBC % Seg Neutrophils # Seg Neutrophils # Man Lymphocytes # (Manual) D-Dimer POC ABG pH 7.454 H 7.482 H POC ABG pCO2 POC ABG pO2 65 L VBG pH Sodium 154 H Potassium 3.3 L Chloride 115.1 H Carbon Dioxide BUN 19 H Creatinine Glucose 117 H POC Glucose Hemoglobin A1c Lactic Acid Calcium 7.8 L Phosphorus Magnesium Iron TIBC AST ALT Troponin T C-Reactive Protein Total Protein Albumin Triglycerides LDL Cholesterol Direct HDL Cholesterol Urine WBC (Auto) Vancomycin Trough Salicylates Acetaminophen % CD3 Cells % CD19 Cells Absolute CD19 Count Miscellaneous Test Crossmatch 08/19/18 08/19/18 08/20/18 14:32 16:18 03:51 WBC RBC Hgb Hct RDW Plt Count Lymph % (Auto) [place] % (Auto) Lymph # [place] # Seg Neutrophils % Seg Neuts % (Manual) Lymphocytes % (Manual) Nucleated RBC % Seg Neutrophils # Seg Neutrophils # Man Lymphocytes # (Manual) D-Dimer POC ABG pH 7.483 H POC ABG pCO2 33.4 L POC ABG pO2 51 L 74 L VBG pH Sodium Potassium Chloride Carbon Dioxide BUN Creatinine Glucose POC Glucose Hemoglobin A1c Lactic Acid Calcium Phosphorus Magnesium Iron TIBC AST ALT Troponin T C-Reactive Protein Total Protein Albumin Triglycerides LDL Cholesterol Direct HDL Cholesterol Urine WBC (Auto) Vancomycin Trough Salicylates Acetaminophen % CD3 Cells 44 L % CD19 Cells 41 H Absolute CD19 Count 1290 H Miscellaneous Test Crossmatch 08/20/18 08/21/18 08/21/18 05:25 03:54 05:45 WBC 24.1 H RBC 2.83 L Hgb 8.8 L Hct 26.7 L RDW 15.7 H Plt Count 127 L Lymph % (Auto) [place] % (Auto) Lymph # [place] # Seg Neutrophils % Seg Neuts % (Manual) 94.0 H Lymphocytes % (Manual) 4.0 L Nucleated RBC % 1.0 H Seg Neutrophils # Seg Neutrophils # Man 22.7 H Lymphocytes # (Manual) 1.0 L D-Dimer POC ABG pH POC ABG pCO2 31.9 L POC ABG pO2 66 L VBG pH Sodium 146 H D Potassium Chloride 111.2 H Carbon Dioxide BUN 24 H Creatinine Glucose 141 H POC Glucose Hemoglobin A1c Lactic Acid Calcium 8.1 L Phosphorus Magnesium Iron TIBC AST 65 H ALT 104 H Troponin T C-Reactive Protein Total Protein 6.2 L Albumin 2.6 L Triglycerides LDL Cholesterol Direct HDL Cholesterol Urine WBC (Auto) Vancomycin Trough Salicylates Acetaminophen % CD3 Cells % CD19 Cells Absolute CD19 Count Miscellaneous Test Crossmatch 08/21/18 08/22/18 08/22/18 05:45 06:20 06:45 WBC RBC Hgb Hct RDW Plt Count Lymph % (Auto) [place] % (Auto) Lymph # [place] # Seg Neutrophils % Seg Neuts % (Manual) Lymphocytes % (Manual) Nucleated RBC % Seg Neutrophils # Seg Neutrophils # Man Lymphocytes # (Manual) D-Dimer POC ABG pH POC ABG pCO2 32.9 L POC ABG pO2 VBG pH Sodium Potassium 3.5 L Chloride 109.4 H 112.4 H Carbon Dioxide 21 L 20 L BUN 50 H 61 H Creatinine 2.0 H D 1.9 H Glucose 144 H 154 H POC Glucose Hemoglobin A1c Lactic Acid Calcium 7.6 L 7.8 L Phosphorus Magnesium Iron TIBC AST ALT Troponin T C-Reactive Protein Total Protein 5.3 L Albumin 2.1 L Triglycerides LDL Cholesterol Direct HDL Cholesterol Urine WBC (Auto) Vancomycin Trough Salicylates Acetaminophen % CD3 Cells % CD19 Cells Absolute CD19 Count Miscellaneous Test Crossmatch 08/22/18 08/22/18 08/22/18 06:45 15:29 18:40 WBC RBC Hgb Hct RDW Plt Count Lymph % (Auto) [place] % (Auto) Lymph # [place] # Seg Neutrophils % Seg Neuts % (Manual) Lymphocytes % (Manual) Nucleated RBC % Seg Neutrophils # Seg Neutrophils # Man Lymphocytes # (Manual) D-Dimer POC ABG pH POC ABG pCO2 POC ABG pO2 VBG pH Sodium Potassium Chloride Carbon Dioxide BUN Creatinine Glucose POC Glucose 169 H Hemoglobin A1c Lactic Acid Calcium Phosphorus Magnesium Iron TIBC AST ALT Troponin T C-Reactive Protein 4.70 H Total Protein Albumin Triglycerides 197 H LDL Cholesterol Direct HDL Cholesterol Urine WBC (Auto) Vancomycin Trough Salicylates Acetaminophen % CD3 Cells % CD19 Cells Absolute CD19 Count Miscellaneous Test Crossmatch 08/23/18 08/23/18 08/23/18 03:59 21:19 Unknown WBC 12.1 H RBC 2.29 L Hgb 7.1 L Hct 21.7 L RDW 15.7 H Plt Count 106 L Lymph % (Auto) [place] % (Auto) Lymph # [place] # Seg Neutrophils % Seg Neuts % (Manual) 92.0 H Lymphocytes % (Manual) 4.0 L Nucleated RBC % Seg Neutrophils # Seg Neutrophils # Man 11.1 H Lymphocytes # (Manual) 0.5 L D-Dimer POC ABG pH 7.306 L POC ABG pCO2 31.3 L POC ABG pO2 119 H 75 L VBG pH Sodium Potassium Chloride Carbon Dioxide BUN Creatinine Glucose POC Glucose Hemoglobin A1c Lactic Acid Calcium Phosphorus Magnesium Iron TIBC AST ALT Troponin T C-Reactive Protein Total Protein Albumin Triglycerides LDL Cholesterol Direct HDL Cholesterol Urine WBC (Auto) Vancomycin Trough Salicylates Acetaminophen % CD3 Cells % CD19 Cells Absolute CD19 Count Miscellaneous Test Crossmatch 08/23/18 08/24/18 08/24/18 Unknown 04:18 08:30 WBC 12.8 H RBC 2.24 L Hgb 7.0 L Hct 21.1 L RDW Plt Count Lymph % (Auto) [place] % (Auto) Lymph # [place] # Seg Neutrophils % Seg Neuts % (Manual) 93.0 H Lymphocytes % (Manual) 6.0 L Nucleated RBC % Seg Neutrophils # Seg Neutrophils # Man 11.9 H Lymphocytes # (Manual) 0.8 L D-Dimer POC ABG pH POC ABG pCO2 POC ABG pO2 78 L VBG pH Sodium Potassium Chloride 115.7 H Carbon Dioxide 21 L BUN 64 H Creatinine 2.0 H Glucose 149 H POC Glucose Hemoglobin A1c Lactic Acid Calcium 7.5 L Phosphorus Magnesium Iron TIBC AST ALT Troponin T C-Reactive Protein Total Protein 4.8 L Albumin 2.0 L Triglycerides LDL Cholesterol Direct HDL Cholesterol Urine WBC (Auto) Vancomycin Trough Salicylates Acetaminophen % CD3 Cells % CD19 Cells Absolute CD19 Count Miscellaneous Test Crossmatch 08/24/18 08/24/18 08/24/18 08:30 17:44 18:28 WBC RBC Hgb Hct RDW Plt Count Lymph % (Auto) [place] % (Auto) Lymph # [place] # Seg Neutrophils % Seg Neuts % (Manual) Lymphocytes % (Manual) Nucleated RBC % Seg Neutrophils # Seg Neutrophils # Man Lymphocytes # (Manual) D-Dimer POC ABG pH 7.474 H POC ABG pCO2 POC ABG pO2 61 L VBG pH Sodium Potassium Chloride 108.3 H Carbon Dioxide 20 L BUN 65 H Creatinine 2.0 H Glucose 167 H POC Glucose 164 H Hemoglobin A1c Lactic Acid Calcium 7.7 L Phosphorus Magnesium Iron TIBC AST ALT Troponin T C-Reactive Protein Total Protein 5.3 L Albumin 2.2 L Triglycerides LDL Cholesterol Direct HDL Cholesterol Urine WBC (Auto) Vancomycin Trough Salicylates Acetaminophen % CD3 Cells % CD19 Cells Absolute CD19 Count Miscellaneous Test Crossmatch 08/25/18 08/25/18 08/25/18 03:35 05:20 05:20 WBC RBC Hgb 6.7 L Hct 21.0 L RDW Plt Count Lymph % (Auto) [place] % (Auto) Lymph # [place] # Seg Neutrophils % Seg Neuts % (Manual) Lymphocytes % (Manual) Nucleated RBC % Seg Neutrophils # Seg Neutrophils # Man Lymphocytes # (Manual) D-Dimer POC ABG pH POC ABG pCO2 POC ABG pO2 79 L VBG pH Sodium Potassium Chloride Carbon Dioxide 21 L BUN 71 H Creatinine 3.1 H D Glucose 171 H POC Glucose Hemoglobin A1c Lactic Acid Calcium 7.5 L Phosphorus Magnesium Iron TIBC AST ALT Troponin T C-Reactive Protein Total Protein Albumin Triglycerides LDL Cholesterol Direct HDL Cholesterol Urine WBC (Auto) Vancomycin Trough Salicylates Acetaminophen % CD3 Cells % CD19 Cells Absolute CD19 Count Miscellaneous Test Crossmatch 08/25/18 08/25/18 08/25/18 05:20 08:52 12:42 WBC RBC Hgb Hct RDW Plt Count Lymph % (Auto) [place] % (Auto) Lymph # [place] # Seg Neutrophils % Seg Neuts % (Manual) Lymphocytes % (Manual) Nucleated RBC % Seg Neutrophils # Seg Neutrophils # Man Lymphocytes # (Manual) D-Dimer POC ABG pH POC ABG pCO2 POC ABG pO2 VBG pH Sodium Potassium Chloride Carbon Dioxide BUN Creatinine Glucose POC Glucose 166 H Hemoglobin A1c Lactic Acid Calcium Phosphorus Magnesium Iron TIBC AST ALT Troponin T C-Reactive Protein 5.00 H Total Protein Albumin Triglycerides LDL Cholesterol Direct HDL Cholesterol Urine WBC (Auto) Vancomycin Trough Salicylates Acetaminophen % CD3 Cells % CD19 Cells Absolute CD19 Count Miscellaneous Test Crossmatch See Detail 08/25/18 08/26/18 08/26/18 18:05 00:13 04:53 WBC RBC Hgb Hct RDW Plt Count Lymph % (Auto) [place] % (Auto) Lymph # [place] # Seg Neutrophils % Seg Neuts % (Manual) Lymphocytes % (Manual) Nucleated RBC % Seg Neutrophils # Seg Neutrophils # Man Lymphocytes # (Manual) D-Dimer POC ABG pH POC ABG pCO2 30.9 L POC ABG pO2 70 L VBG pH Sodium Potassium Chloride Carbon Dioxide BUN Creatinine Glucose POC Glucose 121 H 164 H Hemoglobin A1c Lactic Acid Calcium Phosphorus Magnesium Iron TIBC AST ALT Troponin T C-Reactive Protein Total Protein Albumin Triglycerides LDL Cholesterol Direct HDL Cholesterol Urine WBC (Auto) Vancomycin Trough Salicylates Acetaminophen % CD3 Cells % CD19 Cells Absolute CD19 Count Miscellaneous Test Crossmatch 08/26/18 08/26/18 08/26/18 05:42 06:00 06:00 WBC RBC 2.62 L Hgb 7.7 L Hct 23.0 L RDW 22.0 H Plt Count Lymph % (Auto) 6.3 L [place] % (Auto) Lymph # 0.7 L [place] # Seg Neutrophils % 88.1 H Seg Neuts % (Manual) Lymphocytes % (Manual) Nucleated RBC % Seg Neutrophils # 9.6 H Seg Neutrophils # Man Lymphocytes # (Manual) D-Dimer POC ABG pH POC ABG pCO2 POC ABG pO2 VBG pH Sodium Potassium Chloride Carbon Dioxide 21 L BUN 70 H Creatinine 3.3 H Glucose 146 H POC Glucose 149 H Hemoglobin A1c Lactic Acid Calcium 8.0 L Phosphorus Magnesium Iron TIBC AST ALT Troponin T C-Reactive Protein Total Protein Albumin Triglycerides LDL Cholesterol Direct HDL Cholesterol Urine WBC (Auto) Vancomycin Trough Salicylates Acetaminophen % CD3 Cells % CD19 Cells Absolute CD19 Count Miscellaneous Test Crossmatch 08/26/18 08/26/18 08/27/18 11:37 23:54 04:35 WBC RBC 2.50 L Hgb 7.6 L Hct 22.3 L RDW 21.8 H Plt Count Lymph % (Auto) 7.3 L [place] % (Auto) Lymph # 0.7 L [place] # Seg Neutrophils % 85.6 H Seg Neuts % (Manual) Lymphocytes % (Manual) Nucleated RBC % Seg Neutrophils # 8.6 H Seg Neutrophils # Man Lymphocytes # (Manual) D-Dimer POC ABG pH POC ABG pCO2 POC ABG pO2 VBG pH Sodium Potassium Chloride Carbon Dioxide BUN Creatinine Glucose POC Glucose 183 H 150 H Hemoglobin A1c Lactic Acid Calcium Phosphorus Magnesium Iron TIBC AST ALT Troponin T C-Reactive Protein Total Protein Albumin Triglycerides LDL Cholesterol Direct HDL Cholesterol Urine WBC (Auto) Vancomycin Trough Salicylates Acetaminophen % CD3 Cells % CD19 Cells Absolute CD19 Count Miscellaneous Test Crossmatch 08/27/18 08/27/18 08/28/18 04:35 12:17 04:43 WBC RBC Hgb Hct RDW Plt Count Lymph % (Auto) [place] % (Auto) Lymph # [place] # Seg Neutrophils % Seg Neuts % (Manual) Lymphocytes % (Manual) Nucleated RBC % Seg Neutrophils # Seg Neutrophils # Man Lymphocytes # (Manual) D-Dimer POC ABG pH POC ABG pCO2 32.1 L 33.8 L POC ABG pO2 68 L 78 L VBG pH Sodium Potassium Chloride Carbon Dioxide 19 L BUN 67 H Creatinine 2.9 H Glucose 155 H POC Glucose Hemoglobin A1c Lactic Acid Calcium Phosphorus 4.70 H Magnesium Iron TIBC AST ALT Troponin T C-Reactive Protein Total Protein Albumin Triglycerides LDL Cholesterol Direct HDL Cholesterol Urine WBC (Auto) Vancomycin Trough Salicylates Acetaminophen % CD3 Cells % CD19 Cells Absolute CD19 Count Miscellaneous Test Crossmatch 08/28/18 08/28/18 08/28/18 05:03 05:20 05:20 WBC RBC 2.43 L Hgb 7.4 L Hct 21.8 L RDW 20.8 H Plt Count Lymph % (Auto) 7.6 L [place] % (Auto) 8.7 H Lymph # 0.7 L [place] # Seg Neutrophils % 82.9 H Seg Neuts % (Manual) Lymphocytes % (Manual) Nucleated RBC % Seg Neutrophils # Seg Neutrophils # Man Lymphocytes # (Manual) D-Dimer POC ABG pH POC ABG pCO2 POC ABG pO2 VBG pH Sodium Potassium Chloride 107.8 H Carbon Dioxide 21 L BUN 55 H Creatinine 2.0 H Glucose 177 H POC Glucose 160 H Hemoglobin A1c Lactic Acid Calcium Phosphorus Magnesium Iron TIBC AST ALT Troponin T C-Reactive Protein Total Protein Albumin Triglycerides LDL Cholesterol Direct HDL Cholesterol Urine WBC (Auto) Vancomycin Trough Salicylates Acetaminophen % CD3 Cells % CD19 Cells Absolute CD19 Count Miscellaneous Test Crossmatch 08/28/18 08/28/18 08/28/18 12:18 18:58 22:31 WBC RBC Hgb Hct RDW Plt Count Lymph % (Auto) [place] % (Auto) Lymph # [place] # Seg Neutrophils % Seg Neuts % (Manual) Lymphocytes % (Manual) Nucleated RBC % Seg Neutrophils # Seg Neutrophils # Man Lymphocytes # (Manual) D-Dimer POC ABG pH POC ABG pCO2 34.4 L POC ABG pO2 67 L VBG pH Sodium Potassium Chloride Carbon Dioxide BUN Creatinine Glucose POC Glucose 164 H 149 H Hemoglobin A1c Lactic Acid Calcium Phosphorus Magnesium Iron TIBC AST ALT Troponin T C-Reactive Protein Total Protein Albumin Triglycerides LDL Cholesterol Direct HDL Cholesterol Urine WBC (Auto) Vancomycin Trough Salicylates Acetaminophen % CD3 Cells % CD19 Cells Absolute CD19 Count Miscellaneous Test Crossmatch 08/28/18 08/29/18 08/29/18 23:33 05:25 05:25 WBC RBC 2.30 L Hgb 7.0 L Hct 20.9 L RDW 21.0 H Plt Count Lymph % (Auto) 11.5 L [place] % (Auto) 9.2 H Lymph # 0.8 L [place] # Seg Neutrophils % 78.8 H Seg Neuts % (Manual) Lymphocytes % (Manual) Nucleated RBC % Seg Neutrophils # Seg Neutrophils # Man Lymphocytes # (Manual) D-Dimer POC ABG pH POC ABG pCO2 POC ABG pO2 VBG pH Sodium Potassium Chloride 111.1 H Carbon Dioxide BUN 55 H Creatinine 1.8 H Glucose 162 H POC Glucose 143 H Hemoglobin A1c Lactic Acid Calcium Phosphorus Magnesium Iron TIBC AST 46 H ALT < 5 L Troponin T C-Reactive Protein Total Protein 5.7 L Albumin 2.1 L Triglycerides LDL Cholesterol Direct HDL Cholesterol Urine WBC (Auto) Vancomycin Trough Salicylates Acetaminophen % CD3 Cells % CD19 Cells Absolute CD19 Count Miscellaneous Test Crossmatch 08/29/18 08/29/18 08/30/18 18:19 23:35 05:03 WBC RBC Hgb Hct RDW Plt Count Lymph % (Auto) [place] % (Auto) Lymph # [place] # Seg Neutrophils % Seg Neuts % (Manual) Lymphocytes % (Manual) Nucleated RBC % Seg Neutrophils # Seg Neutrophils # Man Lymphocytes # (Manual) D-Dimer POC ABG pH POC ABG pCO2 POC ABG pO2 VBG pH Sodium Potassium Chloride Carbon Dioxide BUN Creatinine Glucose POC Glucose 155 H 139 H 122 H Hemoglobin A1c Lactic Acid Calcium Phosphorus Magnesium Iron TIBC AST ALT Troponin T C-Reactive Protein Total Protein Albumin Triglycerides LDL Cholesterol Direct HDL Cholesterol Urine WBC (Auto) Vancomycin Trough Salicylates Acetaminophen % CD3 Cells % CD19 Cells Absolute CD19 Count Miscellaneous Test Crossmatch 08/30/18 08/30/18 08/30/18 09:33 09:33 09:54 WBC RBC 2.58 L Hgb 7.9 L Hct 23.5 L RDW 20.9 H Plt Count Lymph % (Auto) 8.0 L [place] % (Auto) 9.7 H Lymph # 0.8 L [place] # 1.0 H Seg Neutrophils % 82.1 H Seg Neuts % (Manual) Lymphocytes % (Manual) Nucleated RBC % Seg Neutrophils # 8.2 H Seg Neutrophils # Man Lymphocytes # (Manual) D-Dimer POC ABG pH POC ABG pCO2 POC ABG pO2 VBG pH Sodium 146 H Potassium Chloride 110.7 H Carbon Dioxide BUN 56 H Creatinine 1.9 H Glucose 145 H POC Glucose Hemoglobin A1c Lactic Acid Calcium Phosphorus 4.60 H Magnesium Iron TIBC AST ALT < 5 L Troponin T C-Reactive Protein Total Protein Albumin 2.7 L Triglycerides LDL Cholesterol Direct HDL Cholesterol Urine WBC (Auto) Vancomycin Trough Salicylates Acetaminophen % CD3 Cells % CD19 Cells Absolute CD19 Count Miscellaneous Test Flexitest 1 H Crossmatch 08/30/18 08/30/18 08/30/18 09:57 11:26 18:08 WBC RBC Hgb Hct RDW Plt Count Lymph % (Auto) [place] % (Auto) Lymph # [place] # Seg Neutrophils % Seg Neuts % (Manual) Lymphocytes % (Manual) Nucleated RBC % Seg Neutrophils # Seg Neutrophils # Man Lymphocytes # (Manual) D-Dimer POC ABG pH POC ABG pCO2 POC ABG pO2 VBG pH Sodium Potassium Chloride Carbon Dioxide BUN Creatinine Glucose POC Glucose 149 H 156 H Hemoglobin A1c Lactic Acid Calcium Phosphorus Magnesium Iron TIBC AST ALT Troponin T C-Reactive Protein Total Protein Albumin Triglycerides LDL Cholesterol Direct HDL Cholesterol Urine WBC (Auto) Vancomycin Trough Salicylates Acetaminophen % CD3 Cells % CD19 Cells Absolute CD19 Count Miscellaneous Test Flexitest 1 H Crossmatch 08/30/18 08/31/18 08/31/18 23:14 05:16 08:40 WBC RBC Hgb Hct RDW Plt Count Lymph % (Auto) [place] % (Auto) Lymph # [place] # Seg Neutrophils % Seg Neuts % (Manual) Lymphocytes % (Manual) Nucleated RBC % Seg Neutrophils # Seg Neutrophils # Man Lymphocytes # (Manual) D-Dimer POC ABG pH POC ABG pCO2 POC ABG pO2 VBG pH Sodium 151 H Potassium Chloride 113.8 H Carbon Dioxide BUN 45 H Creatinine Glucose 144 H POC Glucose 117 H 133 H Hemoglobin A1c Lactic Acid Calcium Phosphorus Magnesium Iron TIBC AST ALT Troponin T C-Reactive Protein Total Protein Albumin Triglycerides LDL Cholesterol Direct HDL Cholesterol Urine WBC (Auto) Vancomycin Trough Salicylates Acetaminophen % CD3 Cells % CD19 Cells Absolute CD19 Count Miscellaneous Test Crossmatch 08/31/18 09/01/18 09/01/18 23:46 04:45 04:45 WBC RBC 2.38 L Hgb 7.3 L Hct 22.1 L RDW 21.1 H Plt Count Lymph % (Auto) [place] % (Auto) Lymph # [place] # Seg Neutrophils % Seg Neuts % (Manual) 93.0 H Lymphocytes % (Manual) 4.0 L Nucleated RBC % Seg Neutrophils # Seg Neutrophils # Man 10.1 H Lymphocytes # (Manual) 0.4 L D-Dimer POC ABG pH POC ABG pCO2 POC ABG pO2 VBG pH Sodium 156 H Potassium 3.1 L Chloride 115.2 H Carbon Dioxide BUN 34 H Creatinine Glucose 125 H POC Glucose 124 H Hemoglobin A1c Lactic Acid Calcium Phosphorus Magnesium Iron TIBC AST ALT Troponin T C-Reactive Protein Total Protein Albumin Triglycerides LDL Cholesterol Direct HDL Cholesterol Urine WBC (Auto) Vancomycin Trough Salicylates Acetaminophen % CD3 Cells % CD19 Cells Absolute CD19 Count Miscellaneous Test Crossmatch 09/01/18 09/01/18 09/01/18 05:34 11:20 17:52 WBC RBC Hgb Hct RDW Plt Count Lymph % (Auto) [place] % (Auto) Lymph # [place] # Seg Neutrophils % Seg Neuts % (Manual) Lymphocytes % (Manual) Nucleated RBC % Seg Neutrophils # Seg Neutrophils # Man Lymphocytes # (Manual) D-Dimer POC ABG pH 7.553 H POC ABG pCO2 POC ABG pO2 74 L VBG pH Sodium Potassium Chloride Carbon Dioxide BUN Creatinine Glucose POC Glucose 128 H 146 H Hemoglobin A1c Lactic Acid Calcium Phosphorus Magnesium Iron TIBC AST ALT Troponin T C-Reactive Protein Total Protein Albumin Triglycerides LDL Cholesterol Direct HDL Cholesterol Urine WBC (Auto) Vancomycin Trough Salicylates Acetaminophen % CD3 Cells % CD19 Cells Absolute CD19 Count Miscellaneous Test Crossmatch 09/01/18 09/02/18 09/02/18 17:52 04:13 04:58 WBC 16.4 H RBC 2.64 L Hgb 7.9 L Hct 24.3 L RDW 20.8 H Plt Count Lymph % (Auto) [place] % (Auto) Lymph # [place] # Seg Neutrophils % Seg Neuts % (Manual) 96.0 H Lymphocytes % (Manual) 1.0 L Nucleated RBC % Seg Neutrophils # Seg Neutrophils # Man 15.7 H Lymphocytes # (Manual) 0.2 L D-Dimer POC ABG pH 7.488 H POC ABG pCO2 POC ABG pO2 63 L VBG pH Sodium Potassium Chloride Carbon Dioxide BUN Creatinine Glucose POC Glucose 143 H Hemoglobin A1c Lactic Acid Calcium Phosphorus Magnesium Iron TIBC AST ALT Troponin T C-Reactive Protein Total Protein Albumin Triglycerides LDL Cholesterol Direct HDL Cholesterol Urine WBC (Auto) Vancomycin Trough Salicylates Acetaminophen % CD3 Cells % CD19 Cells Absolute CD19 Count Miscellaneous Test Crossmatch 09/02/18 09/02/18 09/02/18 04:58 11:03 18:18 WBC RBC Hgb Hct RDW Plt Count Lymph % (Auto) [place] % (Auto) Lymph # [place] # Seg Neutrophils % Seg Neuts % (Manual) Lymphocytes % (Manual) Nucleated RBC % Seg Neutrophils # Seg Neutrophils # Man Lymphocytes # (Manual) D-Dimer POC ABG pH 7.344 L POC ABG pCO2 52.8 H POC ABG pO2 VBG pH Sodium 158 H Potassium 2.9 L* Chloride 115.7 H Carbon Dioxide BUN 27 H Creatinine 0.6 L Glucose 128 H POC Glucose 121 H Hemoglobin A1c Lactic Acid Calcium Phosphorus Magnesium 1.60 L Iron TIBC AST 64 H ALT Troponin T C-Reactive Protein Total Protein Albumin 2.6 L Triglycerides LDL Cholesterol Direct HDL Cholesterol Urine WBC (Auto) Vancomycin Trough Salicylates Acetaminophen % CD3 Cells % CD19 Cells Absolute CD19 Count Miscellaneous Test Crossmatch 09/02/18 09/03/18 09/03/18 23:06 03:36 04:25 WBC RBC 2.20 L Hgb 6.7 L Hct 20.9 L RDW 21.1 H Plt Count Lymph % (Auto) [place] % (Auto) Lymph # [place] # Seg Neutrophils % Seg Neuts % (Manual) 90.0 H Lymphocytes % (Manual) 5.0 L Nucleated RBC % Seg Neutrophils # Seg Neutrophils # Man 8.7 H Lymphocytes # (Manual) 0.5 L D-Dimer POC ABG pH POC ABG pCO2 POC ABG pO2 54 L VBG pH Sodium Potassium Chloride Carbon Dioxide BUN Creatinine Glucose POC Glucose 121 H Hemoglobin A1c Lactic Acid Calcium Phosphorus Magnesium Iron TIBC AST ALT Troponin T C-Reactive Protein Total Protein Albumin Triglycerides LDL Cholesterol Direct HDL Cholesterol Urine WBC (Auto) Vancomycin Trough Salicylates Acetaminophen % CD3 Cells % CD19 Cells Absolute CD19 Count Miscellaneous Test Crossmatch 09/03/18 09/03/18 09/03/18 04:25 05:45 10:24 WBC RBC Hgb Hct RDW Plt Count Lymph % (Auto) [place] % (Auto) Lymph # [place] # Seg Neutrophils % Seg Neuts % (Manual) Lymphocytes % (Manual) Nucleated RBC % Seg Neutrophils # Seg Neutrophils # Man Lymphocytes # (Manual) D-Dimer POC ABG pH POC ABG pCO2 POC ABG pO2 VBG pH Sodium 158 H Potassium 3.1 L Chloride 120.4 H Carbon Dioxide BUN 25 H Creatinine 0.6 L Glucose 127 H POC Glucose 178 H Hemoglobin A1c Lactic Acid Calcium 7.9 L Phosphorus Magnesium Iron TIBC AST ALT Troponin T C-Reactive Protein Total Protein 6.0 L Albumin 2.4 L Triglycerides LDL Cholesterol Direct HDL Cholesterol Urine WBC (Auto) Vancomycin Trough Salicylates Acetaminophen % CD3 Cells % CD19 Cells Absolute CD19 Count Miscellaneous Test Crossmatch See Detail 09/03/18 09/03/18 09/04/18 11:27 23:09 04:42 WBC RBC Hgb Hct RDW Plt Count Lymph % (Auto) [place] % (Auto) Lymph # [place] # Seg Neutrophils % Seg Neuts % (Manual) Lymphocytes % (Manual) Nucleated RBC % Seg Neutrophils # Seg Neutrophils # Man Lymphocytes # (Manual) D-Dimer POC ABG pH 7.293 L POC ABG pCO2 50.2 H POC ABG pO2 VBG pH Sodium Potassium Chloride Carbon Dioxide BUN Creatinine Glucose POC Glucose 107 H 139 H Hemoglobin A1c Lactic Acid Calcium Phosphorus Magnesium Iron TIBC AST ALT Troponin T C-Reactive Protein Total Protein Albumin Triglycerides LDL Cholesterol Direct HDL Cholesterol Urine WBC (Auto) Vancomycin Trough Salicylates Acetaminophen % CD3 Cells % CD19 Cells Absolute CD19 Count Miscellaneous Test Crossmatch 09/04/18 09/04/18 09/04/18 05:00 06:30 06:30 WBC RBC 2.32 L Hgb 7.0 L Hct 21.9 L RDW 20.2 H Plt Count Lymph % (Auto) [place] % (Auto) Lymph # [place] # Seg Neutrophils % 80.1 H Seg Neuts % (Manual) Lymphocytes % (Manual) Nucleated RBC % Seg Neutrophils # 8.2 H Seg Neutrophils # Man Lymphocytes # (Manual) D-Dimer POC ABG pH POC ABG pCO2 POC ABG pO2 VBG pH Sodium 150 H D Potassium Chloride 115.9 H Carbon Dioxide BUN 21 H Creatinine 0.6 L Glucose 125 H POC Glucose 154 H Hemoglobin A1c Lactic Acid Calcium 7.9 L Phosphorus Magnesium 1.50 L Iron TIBC AST ALT Troponin T C-Reactive Protein Total Protein Albumin Triglycerides LDL Cholesterol Direct HDL Cholesterol Urine WBC (Auto) Vancomycin Trough Salicylates Acetaminophen % CD3 Cells % CD19 Cells Absolute CD19 Count Miscellaneous Test Crossmatch 09/04/18 09/04/18 09/04/18 11:20 11:51 18:27 WBC RBC Hgb Hct RDW Plt Count Lymph % (Auto) [place] % (Auto) Lymph # [place] # Seg Neutrophils % Seg Neuts % (Manual) Lymphocytes % (Manual) Nucleated RBC % Seg Neutrophils # Seg Neutrophils # Man Lymphocytes # (Manual) D-Dimer POC ABG pH 7.244 L POC ABG pCO2 54.2 H POC ABG pO2 62 L VBG pH Sodium Potassium Chloride Carbon Dioxide BUN Creatinine Glucose POC Glucose 156 H 129 H Hemoglobin A1c Lactic Acid Calcium Phosphorus Magnesium Iron TIBC AST ALT Troponin T C-Reactive Protein Total Protein Albumin Triglycerides LDL Cholesterol Direct HDL Cholesterol Urine WBC (Auto) Vancomycin Trough Salicylates Acetaminophen % CD3 Cells % CD19 Cells Absolute CD19 Count Miscellaneous Test Crossmatch 09/05/18 09/05/18 09/05/18 03:46 04:00 04:00 WBC RBC 2.13 L Hgb 6.4 L Hct 20.1 L RDW 19.9 H Plt Count 117 L Lymph % (Auto) [place] % (Auto) Lymph # 0.9 L [place] # Seg Neutrophils % 81.7 H Seg Neuts % (Manual) Lymphocytes % (Manual) Nucleated RBC % Seg Neutrophils # Seg Neutrophils # Man Lymphocytes # (Manual) D-Dimer POC ABG pH 7.282 L POC ABG pCO2 57.3 H POC ABG pO2 124 H VBG pH Sodium Potassium Chloride 111.0 H Carbon Dioxide BUN 20 H Creatinine Glucose 130 H POC Glucose Hemoglobin A1c Lactic Acid Calcium 7.8 L Phosphorus Magnesium 1.60 L Iron TIBC AST ALT Troponin T C-Reactive Protein Total Protein Albumin Triglycerides LDL Cholesterol Direct HDL Cholesterol Urine WBC (Auto) Vancomycin Trough Salicylates Acetaminophen % CD3 Cells % CD19 Cells Absolute CD19 Count Miscellaneous Test Crossmatch 09/05/18 09/05/18 09/05/18 12:15 17:24 23:24 WBC RBC Hgb Hct RDW Plt Count Lymph % (Auto) [place] % (Auto) Lymph # [place] # Seg Neutrophils % Seg Neuts % (Manual) Lymphocytes % (Manual) Nucleated RBC % Seg Neutrophils # Seg Neutrophils # Man Lymphocytes # (Manual) D-Dimer POC ABG pH POC ABG pCO2 POC ABG pO2 VBG pH Sodium Potassium Chloride Carbon Dioxide BUN Creatinine Glucose POC Glucose 143 H 116 H 116 H Hemoglobin A1c Lactic Acid Calcium Phosphorus Magnesium Iron TIBC AST ALT Troponin T C-Reactive Protein Total Protein Albumin Triglycerides LDL Cholesterol Direct HDL Cholesterol Urine WBC (Auto) Vancomycin Trough Salicylates Acetaminophen % CD3 Cells % CD19 Cells Absolute CD19 Count Miscellaneous Test Crossmatch 09/06/18 09/06/18 09/06/18 03:33 04:20 04:20 WBC RBC 2.45 L Hgb 7.4 L Hct 23.0 L RDW 18.1 H Plt Count 99 L Lymph % (Auto) [place] % (Auto) Lymph # 1.0 L [place] # Seg Neutrophils % 78.0 H Seg Neuts % (Manual) Lymphocytes % (Manual) Nucleated RBC % Seg Neutrophils # Seg Neutrophils # Man Lymphocytes # (Manual) D-Dimer POC ABG pH 7.303 L POC ABG pCO2 49.2 H POC ABG pO2 73 L VBG pH Sodium Potassium Chloride 109.3 H Carbon Dioxide BUN 24 H Creatinine Glucose 108 H POC Glucose Hemoglobin A1c Lactic Acid Calcium 8.1 L Phosphorus Magnesium Iron TIBC AST ALT Troponin T C-Reactive Protein Total Protein Albumin Triglycerides LDL Cholesterol Direct HDL Cholesterol Urine WBC (Auto) Vancomycin Trough Salicylates Acetaminophen % CD3 Cells % CD19 Cells Absolute CD19 Count Miscellaneous Test Crossmatch 09/06/18 09/06/18 09/06/18 04:55 11:29 14:40 WBC RBC Hgb Hct RDW Plt Count Lymph % (Auto) [place] % (Auto) Lymph # [place] # Seg Neutrophils % Seg Neuts % (Manual) Lymphocytes % (Manual) Nucleated RBC % Seg Neutrophils # Seg Neutrophils # Man Lymphocytes # (Manual) D-Dimer POC ABG pH POC ABG pCO2 POC ABG pO2 VBG pH Sodium Potassium Chloride Carbon Dioxide BUN Creatinine Glucose POC Glucose 124 H 149 H Hemoglobin A1c Lactic Acid Calcium Phosphorus Magnesium Iron TIBC AST ALT Troponin T C-Reactive Protein Total Protein Albumin Triglycerides LDL Cholesterol Direct HDL Cholesterol Urine WBC (Auto) Vancomycin Trough 28.6 H Salicylates Acetaminophen % CD3 Cells % CD19 Cells Absolute CD19 Count Miscellaneous Test Crossmatch 09/06/18 09/06/18 09/07/18 17:43 20:08 00:39 WBC RBC Hgb Hct RDW Plt Count Lymph % (Auto) [place] % (Auto) Lymph # [place] # Seg Neutrophils % Seg Neuts % (Manual) Lymphocytes % (Manual) Nucleated RBC % Seg Neutrophils # Seg Neutrophils # Man Lymphocytes # (Manual) D-Dimer POC ABG pH POC ABG pCO2 POC ABG pO2 VBG pH Sodium Potassium Chloride Carbon Dioxide BUN Creatinine Glucose POC Glucose 138 H 118 H 131 H Hemoglobin A1c Lactic Acid Calcium Phosphorus Magnesium Iron TIBC AST ALT Troponin T C-Reactive Protein Total Protein Albumin Triglycerides LDL Cholesterol Direct HDL Cholesterol Urine WBC (Auto) Vancomycin Trough Salicylates Acetaminophen % CD3 Cells % CD19 Cells Absolute CD19 Count Miscellaneous Test Crossmatch 09/07/18 09/07/18 09/07/18 05:40 05:40 12:03 WBC RBC 2.40 L Hgb 7.3 L Hct 22.5 L RDW 17.8 H Plt Count 92 L Lymph % (Auto) [place] % (Auto) Lymph # [place] # Seg Neutrophils % Seg Neuts % (Manual) 80.0 H Lymphocytes % (Manual) Nucleated RBC % 1.0 H Seg Neutrophils # Seg Neutrophils # Man Lymphocytes # (Manual) 0.8 L D-Dimer POC ABG pH POC ABG pCO2 POC ABG pO2 VBG pH Sodium Potassium Chloride 109.8 H Carbon Dioxide BUN 26 H Creatinine Glucose 118 H POC Glucose 145 H Hemoglobin A1c Lactic Acid Calcium 8.0 L Phosphorus Magnesium Iron 26 L TIBC 150 L AST 88 H ALT Troponin T C-Reactive Protein Total Protein 5.8 L Albumin 2.1 L Triglycerides LDL Cholesterol Direct HDL Cholesterol Urine WBC (Auto) Vancomycin Trough Salicylates Acetaminophen % CD3 Cells % CD19 Cells Absolute CD19 Count Miscellaneous Test Crossmatch 09/07/18 09/07/18 09/08/18 17:39 23:21 05:48 WBC RBC Hgb Hct RDW Plt Count Lymph % (Auto) [place] % (Auto) Lymph # [place] # Seg Neutrophils % Seg Neuts % (Manual) Lymphocytes % (Manual) Nucleated RBC % Seg Neutrophils # Seg Neutrophils # Man Lymphocytes # (Manual) D-Dimer POC ABG pH POC ABG pCO2 POC ABG pO2 VBG pH Sodium Potassium Chloride Carbon Dioxide BUN Creatinine Glucose POC Glucose 128 H 136 H 129 H Hemoglobin A1c Lactic Acid Calcium Phosphorus Magnesium Iron TIBC AST ALT Troponin T C-Reactive Protein Total Protein Albumin Triglycerides LDL Cholesterol Direct HDL Cholesterol Urine WBC (Auto) Vancomycin Trough Salicylates Acetaminophen % CD3 Cells % CD19 Cells Absolute CD19 Count Miscellaneous Test Crossmatch 09/08/18 09/08/18 09/08/18 06:17 10:06 10:42 WBC RBC Hgb Hct RDW Plt Count Lymph % (Auto) [place] % (Auto) Lymph # [place] # Seg Neutrophils % Seg Neuts % (Manual) Lymphocytes % (Manual) Nucleated RBC % Seg Neutrophils # Seg Neutrophils # Man Lymphocytes # (Manual) D-Dimer POC ABG pH 7.292 L 7.276 L POC ABG pCO2 56.9 H 65.1 H POC ABG pO2 VBG pH Sodium 146 H Potassium Chloride 109.1 H Carbon Dioxide BUN 28 H Creatinine Glucose 165 H POC Glucose Hemoglobin A1c Lactic Acid Calcium Phosphorus Magnesium Iron TIBC AST ALT Troponin T C-Reactive Protein Total Protein Albumin Triglycerides LDL Cholesterol Direct HDL Cholesterol Urine WBC (Auto) Vancomycin Trough Salicylates Acetaminophen % CD3 Cells % CD19 Cells Absolute CD19 Count Miscellaneous Test Crossmatch 09/08/18 09/08/18 09/08/18 11:06 18:07 23:20 WBC RBC Hgb Hct RDW Plt Count Lymph % (Auto) [place] % (Auto) Lymph # [place] # Seg Neutrophils % Seg Neuts % (Manual) Lymphocytes % (Manual) Nucleated RBC % Seg Neutrophils # Seg Neutrophils # Man Lymphocytes # (Manual) D-Dimer POC ABG pH POC ABG pCO2 POC ABG pO2 VBG pH Sodium Potassium Chloride Carbon Dioxide BUN Creatinine Glucose POC Glucose 165 H 140 H 124 H Hemoglobin A1c Lactic Acid Calcium Phosphorus Magnesium Iron TIBC AST ALT Troponin T C-Reactive Protein Total Protein Albumin Triglycerides LDL Cholesterol Direct HDL Cholesterol Urine WBC (Auto) Vancomycin Trough Salicylates Acetaminophen % CD3 Cells % CD19 Cells Absolute CD19 Count Miscellaneous Test Crossmatch 09/09/18 09/09/18 09/09/18 05:04 08:39 08:39 WBC RBC 2.60 L Hgb 8.1 L Hct 24.6 L RDW 17.9 H Plt Count Lymph % (Auto) [place] % (Auto) Lymph # [place] # Seg Neutrophils % Seg Neuts % (Manual) Lymphocytes % (Manual) Nucleated RBC % Seg Neutrophils # Seg Neutrophils # Man Lymphocytes # (Manual) D-Dimer POC ABG pH POC ABG pCO2 POC ABG pO2 VBG pH Sodium Potassium Chloride Carbon Dioxide BUN 32 H Creatinine Glucose 150 H POC Glucose 168 H Hemoglobin A1c Lactic Acid Calcium Phosphorus Magnesium Iron TIBC AST ALT Troponin T C-Reactive Protein Total Protein Albumin Triglycerides LDL Cholesterol Direct HDL Cholesterol Urine WBC (Auto) Vancomycin Trough Salicylates Acetaminophen % CD3 Cells % CD19 Cells Absolute CD19 Count Miscellaneous Test Crossmatch 09/09/18 09/10/18 09/10/18 12:41 04:20 04:20 WBC RBC 2.49 L Hgb 7.7 L Hct 23.4 L RDW 18.0 H Plt Count Lymph % (Auto) 8.2 L [place] % (Auto) Lymph # 0.7 L [place] # Seg Neutrophils % 87.7 H Seg Neuts % (Manual) Lymphocytes % (Manual) Nucleated RBC % Seg Neutrophils # Seg Neutrophils # Man Lymphocytes # (Manual) D-Dimer POC ABG pH POC ABG pCO2 POC ABG pO2 VBG pH Sodium Potassium Chloride Carbon Dioxide 31 H BUN 39 H Creatinine Glucose 183 H POC Glucose 150 H Hemoglobin A1c Lactic Acid Calcium Phosphorus Magnesium Iron TIBC AST 85 H ALT 58 H Troponin T C-Reactive Protein Total Protein Albumin 2.5 L Triglycerides LDL Cholesterol Direct HDL Cholesterol Urine WBC (Auto) Vancomycin Trough Salicylates Acetaminophen % CD3 Cells % CD19 Cells Absolute CD19 Count Miscellaneous Test Crossmatch 09/10/18 09/10/18 09/10/18 04:39 05:06 11:17 WBC RBC Hgb Hct RDW Plt Count Lymph % (Auto) [place] % (Auto) Lymph # [place] # Seg Neutrophils % Seg Neuts % (Manual) Lymphocytes % (Manual) Nucleated RBC % Seg Neutrophils # Seg Neutrophils # Man Lymphocytes # (Manual) D-Dimer POC ABG pH POC ABG pCO2 51.4 H POC ABG pO2 VBG pH Sodium Potassium Chloride Carbon Dioxide BUN Creatinine Glucose POC Glucose 185 H 159 H Hemoglobin A1c Lactic Acid Calcium Phosphorus Magnesium Iron TIBC AST ALT Troponin T C-Reactive Protein Total Protein Albumin Triglycerides LDL Cholesterol Direct HDL Cholesterol Urine WBC (Auto) Vancomycin Trough Salicylates Acetaminophen % CD3 Cells % CD19 Cells Absolute CD19 Count Miscellaneous Test Crossmatch 09/10/18 09/11/18 09/11/18 16:57 00:17 01:10 WBC RBC Hgb Hct RDW Plt Count Lymph % (Auto) [place] % (Auto) Lymph # [place] # Seg Neutrophils % Seg Neuts % (Manual) Lymphocytes % (Manual) Nucleated RBC % Seg Neutrophils # Seg Neutrophils # Man Lymphocytes # (Manual) D-Dimer POC ABG pH POC ABG pCO2 POC ABG pO2 VBG pH Sodium Potassium Chloride Carbon Dioxide 34 H BUN 44 H Creatinine Glucose 154 H POC Glucose 177 H 163 H Hemoglobin A1c Lactic Acid Calcium Phosphorus Magnesium Iron TIBC AST 86 H ALT 68 H Troponin T C-Reactive Protein Total Protein Albumin 2.6 L Triglycerides LDL Cholesterol Direct HDL Cholesterol Urine WBC (Auto) Vancomycin Trough Salicylates Acetaminophen % CD3 Cells % CD19 Cells Absolute CD19 Count Miscellaneous Test Crossmatch 09/11/18 09/11/18 09/11/18 01:10 06:03 09:00 WBC 13.7 H RBC 2.61 L Hgb 8.0 L Hct 24.6 L RDW 19.1 H Plt Count Lymph % (Auto) 6.1 L [place] % (Auto) Lymph # 0.8 L [place] # Seg Neutrophils % 87.7 H Seg Neuts % (Manual) Lymphocytes % (Manual) Nucleated RBC % Seg Neutrophils # 12.0 H Seg Neutrophils # Man Lymphocytes # (Manual) D-Dimer POC ABG pH POC ABG pCO2 POC ABG pO2 VBG pH Sodium Potassium Chloride Carbon Dioxide 33 H BUN 45 H Creatinine Glucose 147 H POC Glucose 180 H Hemoglobin A1c Lactic Acid Calcium Phosphorus Magnesium Iron TIBC AST ALT Troponin T C-Reactive Protein Total Protein Albumin Triglycerides LDL Cholesterol Direct HDL Cholesterol Urine WBC (Auto) Vancomycin Trough Salicylates Acetaminophen % CD3 Cells % CD19 Cells Absolute CD19 Count Miscellaneous Test Crossmatch 09/11/18 09/11/18 09/11/18 11:14 11:31 17:11 WBC RBC Hgb Hct RDW Plt Count Lymph % (Auto) [place] % (Auto) Lymph # [place] # Seg Neutrophils % Seg Neuts % (Manual) Lymphocytes % (Manual) Nucleated RBC % Seg Neutrophils # Seg Neutrophils # Man Lymphocytes # (Manual) D-Dimer POC ABG pH 7.498 H POC ABG pCO2 46.3 H POC ABG pO2 VBG pH Sodium Potassium Chloride Carbon Dioxide BUN Creatinine Glucose POC Glucose 163 H 202 H Hemoglobin A1c Lactic Acid Calcium Phosphorus Magnesium Iron TIBC AST ALT Troponin T C-Reactive Protein Total Protein Albumin Triglycerides LDL Cholesterol Direct HDL Cholesterol Urine WBC (Auto) Vancomycin Trough Salicylates Acetaminophen % CD3 Cells % CD19 Cells Absolute CD19 Count Miscellaneous Test Crossmatch 09/11/18 09/12/18 09/12/18 23:49 03:16 05:30 WBC RBC 2.36 L Hgb 7.3 L Hct 22.3 L RDW 18.4 H Plt Count Lymph % (Auto) 13.0 L [place] % (Auto) 9.3 H Lymph # 1.1 L [place] # Seg Neutrophils % 77.5 H Seg Neuts % (Manual) Lymphocytes % (Manual) Nucleated RBC % Seg Neutrophils # Seg Neutrophils # Man Lymphocytes # (Manual) D-Dimer POC ABG pH 7.517 H POC ABG pCO2 48.8 H POC ABG pO2 VBG pH Sodium Potassium Chloride Carbon Dioxide BUN Creatinine Glucose POC Glucose 163 H Hemoglobin A1c Lactic Acid Calcium Phosphorus Magnesium Iron TIBC AST ALT Troponin T C-Reactive Protein Total Protein Albumin Triglycerides LDL Cholesterol Direct HDL Cholesterol Urine WBC (Auto) Vancomycin Trough Salicylates Acetaminophen % CD3 Cells % CD19 Cells Absolute CD19 Count Miscellaneous Test Crossmatch 09/12/18 09/12/18 09/12/18 05:30 06:07 11:36 WBC RBC Hgb Hct RDW Plt Count Lymph % (Auto) [place] % (Auto) Lymph # [place] # Seg Neutrophils % Seg Neuts % (Manual) Lymphocytes % (Manual) Nucleated RBC % Seg Neutrophils # Seg Neutrophils # Man Lymphocytes # (Manual) D-Dimer POC ABG pH POC ABG pCO2 POC ABG pO2 VBG pH Sodium 148 H Potassium Chloride Carbon Dioxide 36 H BUN 46 H Creatinine Glucose 152 H POC Glucose 172 H 212 H Hemoglobin A1c Lactic Acid Calcium Phosphorus Magnesium Iron TIBC AST ALT Troponin T C-Reactive Protein Total Protein Albumin Triglycerides LDL Cholesterol Direct HDL Cholesterol Urine WBC (Auto) Vancomycin Trough Salicylates Acetaminophen % CD3 Cells % CD19 Cells Absolute CD19 Count Miscellaneous Test Crossmatch 09/12/18 09/12/18 09/13/18 18:02 23:19 03:55 WBC RBC Hgb Hct RDW Plt Count Lymph % (Auto) [place] % (Auto) Lymph # [place] # Seg Neutrophils % Seg Neuts % (Manual) Lymphocytes % (Manual) Nucleated RBC % Seg Neutrophils # Seg Neutrophils # Man Lymphocytes # (Manual) D-Dimer POC ABG pH 7.520 H POC ABG pCO2 48.0 H POC ABG pO2 58 L VBG pH Sodium Potassium Chloride Carbon Dioxide BUN Creatinine Glucose POC Glucose 142 H 161 H Hemoglobin A1c Lactic Acid Calcium Phosphorus Magnesium Iron TIBC AST ALT Troponin T C-Reactive Protein Total Protein Albumin Triglycerides LDL Cholesterol Direct HDL Cholesterol Urine WBC (Auto) Vancomycin Trough Salicylates Acetaminophen % CD3 Cells % CD19 Cells Absolute CD19 Count Miscellaneous Test Crossmatch 09/13/18 09/13/18 09/13/18 05:11 05:25 05:25 WBC RBC 2.38 L Hgb 7.6 L Hct 22.4 L RDW 18.6 H Plt Count Lymph % (Auto) [place] % (Auto) Lymph # [place] # Seg Neutrophils % Seg Neuts % (Manual) Lymphocytes % (Manual) Nucleated RBC % Seg Neutrophils # Seg Neutrophils # Man Lymphocytes # (Manual) D-Dimer POC ABG pH POC ABG pCO2 POC ABG pO2 VBG pH Sodium Potassium 3.2 L Chloride 97.5 L Carbon Dioxide 38 H BUN 38 H Creatinine 0.6 L Glucose 120 H POC Glucose 139 H Hemoglobin A1c Lactic Acid Calcium 8.1 L Phosphorus Magnesium Iron TIBC AST 120 H ALT 124 H Troponin T C-Reactive Protein Total Protein 5.9 L Albumin 2.6 L Triglycerides LDL Cholesterol Direct HDL Cholesterol Urine WBC (Auto) Vancomycin Trough Salicylates Acetaminophen % CD3 Cells % CD19 Cells Absolute CD19 Count Miscellaneous Test Crossmatch Chest x-ray: image reviewed (Improved effusions, improved alveolar edema, ETT in good position) Allied health notes reviewed: RT (Increase FIO2 to 50% , decrease set rate to 14)
[2018-09-13] MEDS: LASIX PO SCH (13:04)
--- NOTE | 2018-09-13 14:35 | Progress Note ---
Assessment and Plan Cultures: 08/15/2018 blood culture: Camryn glabrata 1 of 4 08/15/2018 sputum culture: MSSA and Escherichia coli, wade susceptible 08/18/2018 blood culture: no growth 08/18/2018 urine culture: neg 08/22/2018 blood culture: no growth 08/25/2018 blood culture: no growth 09/02/2018 BAL cultures: resp almaz. Fungal and AFB pending: No growth thus far. 09/04/2018 blood culture: no growth thus far 09/04/2018 trach aspirate: no growth Fungitell was high (consistent with Candidemia), Aspergillus galactomannan negative. A/P: 68-year-old female with COPD, arthritis, history of multiple spinal surgeries was brought to the emergency room on 08/15/2018 with altered mental status: 1) Sepsis with septic shock: resolved. 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 Patient without any history of indwelling PICC line, TPN or immunocompromised status. reported severe explosive diarrhea, N/V before admission after taken 4 days of amoxicillin for dental implant on 07/29/2018 and had a EGD / colonoscopy on 08/08/[address] at [facility] [address] Dr Alcantara. I reviewed report - mild chronic gastritis, focal intestinal metaplasia, squamocolumnar mucosa with mild reflux-type changes, and tubular adenoma. -s/p fluconazole 800 mg loading dose then micafungin, s/p amphotericin D6 on 08/26 -serum Crypto negative. -08/15/2018 blood culture: Camryn glabrata -08/18/2018 blood culture: no growth -CTA chest showed limited study due to respiratory motion artifact. No ev idence of pulmonary embolism. Abnormal bilateral lung consolidation which may represent pulmonary edema or pneumonia. Mild cardiomegaly. Indeterminant mediastinal lymph nodes. -CT abdomen showed extensive bilateral lower lobe pulmonary infiltrates, rectal tube and Dodge catheter noted. NG tube at gastric antrum. Left hip prosthesis Extensive degenerative changes noted lumbar spine -TTE EF 25-30% no vegetations -HIV neg/ CD4 1004 -reviewed CT chest abd done 01/05/2019 showed cholecystectomy, mild fatty liver, postoperative changes of lumbar laminectomy with non specific fluid, 9 mm LLL pulmonary nodule which was compared to previous CT and was stable. -CRP 10-->5 3) Acute renal failure: On admission: improved. 4) Acute respiratory failure: Back on the vent. Recently completed pneumonia treatment. WBC up and low grade fever. Underwent bronch + BAL on 09/02/2018. Cultures with no growth thus far. On abx. CTA chest 09/06/2018 negative for PE, bilateral air space disease, no air bronchograms as such. High oxygen requirements, ?ARDS v/s fluid overload. 5) Right maxillary sinusitis: received empiric abx. 6) Acute encephalopathy: Likely multifactorial. CT head unremarkable for acute intracranial process. 7) Cardiomyopathy, LVEF 25-30% this admission. 8) H/O left hip prosthesis ? XR no effusion. CT with no enhancement 9) Left leg DVT: on anticoagulation. Hematology following. 10) Mild transaminitis: monitor for now. If persists, consider RUQ US. Recheck CMP tomorrow. ?fatty liver related. Recs: remains off abx and antifungals Due to increasing LFTs, and RUQ tenderness, US ordered blood cultures ordered if febrile >101.5F, would start empiric IV Zosyn Will follow along. Brando Pradhan MD [facility] C: [phone] O: [phone] F: [phone] Subjective Date of service: 09/13/18 Principal diagnosis: anemia Interval history: Low grade temperatures. Patient awake. On the vent. Not much diarrhea. Dodge draining urine well. Tolerating tube feeds. Objective - Exam Narrative Exam: Physical Exam: Constitutional: awake, intubated, no distress Head, Ears, Nose: Normocephalic, atraumatic. External ears, nose normal Eyes: Conjunctivae/corneas clear. No icterus. No ptosis. Neck: Supple, no meningeal signs Oral: intubated. Cardiovascular: S1, S2 normal. Respiratory: clear breath sounds b/l, equal bilaterally GI: Soft, mild RUQ tenderness, bowel sounds normal. No peritoneal signs. Musculoskeletal: pedal edema bilaterally 2+. L>R Skin: No rash or abscess Hem/Lymphatic: No palpable cervical or supraclavicular nodes. No lymphangitis Psych: calm, no agitation Neurological: awake, intubated, obeying basic commands - Constitutional Vitals: Vital Signs Temp Pulse Resp BP Pulse Ox 99.8 F H 74 16 110/50 96 09/13/18 11:55 09/13/18 13:00 09/13/18 13:04 09/13/18 13:00 09/13/18 12:00 Temperature -Last 24 Hours Temperature 99.8 F Temperature 100.1 F Temperature 100.7 F Temperature 100.9 F Temperature 98.1 F Temperature 99.3 F - Labs CBC & Chem 7: 09/13/18 05:25 09/13/18 05:25 Labs: Abnormal lab results 09/12/18 09/12/18 09/13/18 Range/Units 18:02 23:19 03:55 RBC (3.65-5.03) M/mm3 Hgb (10.1-14.3) gm/dl Hct (30.3-42.9) % RDW (13.2-15.2) % POC ABG pH 7.520 H (7.35-7.45) POC ABG pCO2 48.0 H (35-45) POC ABG pO2 58 L (80-105) Potassium (3.6-5.0) mmol/L Chloride (98-107) mmol/L Carbon Dioxide (22-30) mmol/L BUN (7-17) mg/dL Creatinine (0.7-1.2) mg/dL Glucose (65-100) mg/dL POC Glucose 142 H 161 H (70-105) Calcium (8.4-10.2) mg/dL AST (5-40) units/L ALT (7-56) units/L Total Protein (6.3-8.2) g/dL Albumin (3.9-5) g/dL 09/13/18 09/13/18 09/13/18 Range/Units 05:11 05:25 05:25 RBC 2.38 L (3.65-5.03) M/mm3 Hgb 7.6 L (10.1-14.3) gm/dl Hct 22.4 L (30.3-42.9) % RDW 18.6 H (13.2-15.2) % POC ABG pH (7.35-7.45) POC ABG pCO2 (35-45) POC ABG pO2 (80-105) Potassium 3.2 L (3.6-5.0) mmol/L Chloride 97.5 L (98-107) mmol/L Carbon Dioxide 38 H (22-30) mmol/L BUN 38 H (7-17) mg/dL Creatinine 0.6 L (0.7-1.2) mg/dL Glucose 120 H (65-100) mg/dL POC Glucose 139 H (70-105) Calcium 8.1 L (8.4-10.2) mg/dL AST 120 H (5-40) units/L ALT 124 H (7-56) units/L Total Protein 5.9 L (6.3-8.2) g/dL Albumin 2.6 L (3.9-5) g/dL 09/13/18 Range/Units 11:31 RBC (3.65-5.03) M/mm3 Hgb (10.1-14.3) gm/dl Hct (30.3-42.9) % RDW (13.2-15.2) % POC ABG pH (7.35-7.45) POC ABG pCO2 (35-45) POC ABG pO2 (80-105) Potassium (3.6-5.0) mmol/L Chloride (98-107) mmol/L Carbon Dioxide (22-30) mmol/L BUN (7-17) mg/dL Creatinine (0.7-1.2) mg/dL Glucose (65-100) mg/dL POC Glucose 160 H (70-105) Calcium (8.4-10.2) mg/dL AST (5-40) units/L ALT (7-56) units/L Total Protein (6.3-8.2) g/dL Albumin (3.9-5) g/dL - Imaging and cardiology Chest x-ray: report reviewed, image reviewed (bilateral reticular opacities, appears better compared to prior Xrays.)
[2018-09-13] MEDS ORDERED: K-DUR PO ONE (14:59)
--- NOTE | 2018-09-13 14:59 | Progress Note ---
Assessment and Plan /Acute hypoxic hypercapnic respiratory failure; extubated 08/29/18 Re Intubated 09/02/18, vent dependent Patient may need trach and PEG - planned for tomorrow Status post bronchoscopy, BAL negative cont nebulizers, pulmonary following /Thrombocytopenia: Platelet count is Stable Lovenox changed to Arixtra /Anemia: s/p transfusion[3 PRBC] hemoglobin 7.6 today Stool for occult blood x 2 negative, hematology following /Febrile illness; resolved, likely from PNA/sepsis /Hypomagnesemia; Hypernatremia; resolved, /Bileral lower extremity DVT; anticoagulation with arixtra CTA chest negative for PE /Sepsis; due to aspiration pneumonia ; s/p micafungin, meropenem and Vanco per ID Monitor off antibiotics /Hypertension; continue current antihypertensives /Severe malnutrition/hypoalbuminemia; Dietitian following, On TF /Acute kidney injury; probably secondary to ATN, Resolved, /Acute systolic congestive heart failure; EF 25-30%, Cardio following, monitor ins/os /Elevated Transaminases; resolved /-DVT prophylaxis; on full dose arixtra, on hold now for possible trach/peg tomorrow Consults and recommendations noted and appreciated Plan of care reviewed with the patient's nurse The high probability of a clinically significant, sudden or life threatening deterioration of the [respiratory, cardiology, ID, renal and metabolic] system(s) required my full and direct attention, intervention and personal management. The aggregate critical care time was [32] minutes. This time is in addition to time spent performing reported procedures but includes the following: [x] Data Review and interpretation [x] Patient assessment and monitoring of vital signs [x] Documentation [x] Medication orders and management Plan of care is reviewed with the patient's nurse Brief History: 68-year-old female patient with history of COPD, arthritis s/p C-spine and lumbar spine surgery, Chronic pain syndrome who was found unconscious in her feces and vomitus, patients family was in [place] for a golf tournament. Patient was brought to the emergency room noted to be severely hypoxic and tachy pneic, promptly intubated placed on ventilatory support and admitted to ICU patient was also noted to have possible aspiration pneumonia, completed treatment recommended by ID .currently monitoring of antibiotics . patient also had acute gastroenteritis acute kidney injury nonspecific elevation of troponins as well as septic shock evaluated by multiple specialties successfully weaned and extubated on 08/29/2018 however patient again went into acute respiratory failure requiring reintubation on 09/02/2018, Since then patient is vent dependent, may need trach and PEG and placement. She is also being treated for acute b/l DVT diagnosed following admission while she was on DVT Px. s/p 3units of PRBC transfusion for anemia, no acute source of active bleeding so far. Hospitalist Physical General appearance: Present: no acute distress, well-nourished, obese, other (on vent) - EENT Eyes: Present: PERRL, EOM intact - Neck Neck: Present: supple, normal ROM - Respiratory Respiratory effort: normal Respiratory: bilateral: diminished, rhonchi, negative: rales, wheezing - Cardiovascular Rhythm: regular Heart Sounds: Present: S1 & S2 - Extremities Extremities: no ischemia, No edema - Abdominal General gastrointestinal: soft, non-tender, non-distended, normal bowel sounds - Integumentary Integumentary: Present: clear, warm - Psychiatric Psychiatric: cooperative, other (on vent) - Neurologic Neurologic: other (intubated on vent) Subjective Date of service: 09/13/18 Principal diagnosis: anemia Interval history: Patient seen and examined medical records reviewed Patient remains intubated on ventilator support Alert and awake not in acute distress Vital signs noted, no acute issue overnight Patient's is at the bedside - updated Objective - Constitutional Vitals: Vital Signs - 12hr 09/13/18 09/13/18 09/13/18 03:00 03:17 03:51 Temperature 100.7 F H Pulse Rate 71 74 Pulse Rate [ Anterior Bilateral Throughout] Pulse Rate [ From Monitor] Respiratory 25 H Rate Respiratory Rate [Anterior Bilateral Throughout] Respiratory Rate [ Generalized] Blood Pressure 119/52 119/52 O2 Sat by Pulse 91 Oximetry 09/13/18 09/13/18 09/13/18 04:00 05:00 05:55 Temperature Pulse Rate 75 70 75 Pulse Rate [ Anterior Bilateral Throughout] Pulse Rate [ 74 From Monitor] Respiratory 14 14 Rate Respiratory Rate [Anterior Bilateral Throughout] Respiratory Rate [ Generalized] Blood Pressure 131/85 131/85 137/55 O2 Sat by Pulse 90 Oximetry 09/13/18 09/13/18 09/13/18 06:00 07:00 07:53 Temperature Pulse Rate 77 83 78 Pulse Rate [ 76 Anterior Bilateral Throughout] Pulse Rate [ From Monitor] Respiratory 17 21 Rate Respiratory 16 Rate [Anterior Bilateral Throughout] Respiratory Rate [ Generalized] Blood Pressure 85/55 124/41 124/41 O2 Sat by Pulse 91 91 92 Oximetry 09/13/18 09/13/18 09/13/18 08:00 08:10 09:00 Temperature 100.1 F H Pulse Rate 80 76 Pulse Rate [ 80 Anterior Bilateral Throughout] Pulse Rate [ 76 From Monitor] Respiratory 25 H 23 Rate Respiratory 18 Rate [Anterior Bilateral Throughout] Respiratory Rate [ Generalized] Blood Pressure 99/39 133/51 O2 Sat by Pulse 95 91 Oximetry 09/13/18 09/13/18 09/13/18 10:00 10:10 11:00 Temperature Pulse Rate 79 78 74 Pulse Rate [ Anterior Bilateral Throughout] Pulse Rate [ From Monitor] Respiratory 25 H 14 Rate Respiratory Rate [Anterior Bilateral Throughout] Respiratory Rate [ Generalized] Blood Pressure 96/44 96/44 120/48 O2 Sat by Pulse 92 96 Oximetry 09/13/18 09/13/18 09/13/18 11:55 11:58 12:00 Temperature 99.8 F H Pulse Rate 80 78 Pulse Rate [ Anterior Bilateral Throughout] Pulse Rate [ 72 From Monitor] Respiratory 14 Rate Respiratory Rate [Anterior Bilateral Throughout] Respiratory 16 Rate [ Generalized] Blood Pressure 120/48 137/47 O2 Sat by Pulse 97 96 Oximetry 09/13/18 09/13/18 13:00 13:04 Temperature Pulse Rate 74 Pulse Rate [ Anterior Bilateral Throughout] Pulse Rate [ From Monitor] Respiratory 15 16 Rate Respiratory Rate [Anterior Bilateral Throughout] Respiratory Rate [ Generalized] Blood Pressure 110/50 O2 Sat by Pulse Oximetry - Labs CBC & Chem 7: 09/14/18 04:55 09/14/18 04:55 Labs: Abnormal lab results 09/12/18 09/12/18 09/13/18 Range/Units 18:02 23:19 03:55 RBC (3.65-5.03) M/mm3 Hgb (10.1-14.3) gm/dl Hct (30.3-42.9) % RDW (13.2-15.2) % POC ABG pH 7.520 H (7.35-7.45) POC ABG pCO2 48.0 H (35-45) POC ABG pO2 58 L (80-105) Potassium (3.6-5.0) mmol/L Chloride (98-107) mmol/L Carbon Dioxide (22-30) mmol/L BUN (7-17) mg/dL Creatinine (0.7-1.2) mg/dL Glucose (65-100) mg/dL POC Glucose 142 H 161 H (70-105) Calcium (8.4-10.2) mg/dL AST (5-40) units/L ALT (7-56) units/L Total Protein (6.3-8.2) g/dL Albumin (3.9-5) g/dL 09/13/18 09/13/18 09/13/18 Range/Units 05:11 05:25 05:25 RBC 2.38 L (3.65-5.03) M/mm3 Hgb 7.6 L (10.1-14.3) gm/dl Hct 22.4 L (30.3-42.9) % RDW 18.6 H (13.2-15.2) % POC ABG pH (7.35-7.45) POC ABG pCO2 (35-45) POC ABG pO2 (80-105) Potassium 3.2 L (3.6-5.0) mmol/L Chloride 97.5 L (98-107) mmol/L Carbon Dioxide 38 H (22-30) mmol/L BUN 38 H (7-17) mg/dL Creatinine 0.6 L (0.7-1.2) mg/dL Glucose 120 H (65-100) mg/dL POC Glucose 139 H (70-105) Calcium 8.1 L (8.4-10.2) mg/dL AST 120 H (5-40) units/L ALT 124 H (7-56) units/L Total Protein 5.9 L (6.3-8.2) g/dL Albumin 2.6 L (3.9-5) g/dL 09/13/18 Range/Units 11:31 RBC (3.65-5.03) M/mm3 Hgb (10.1-14.3) gm/dl Hct (30.3-42.9) % RDW (13.2-15.2) % POC ABG pH (7.35-7.45) POC ABG pCO2 (35-45) POC ABG pO2 (80-105) Potassium (3.6-5.0) mmol/L Chloride (98-107) mmol/L Carbon Dioxide (22-30) mmol/L BUN (7-17) mg/dL Creatinine (0.7-1.2) mg/dL Glucose (65-100) mg/dL POC Glucose 160 H (70-105) Calcium (8.4-10.2) mg/dL AST (5-40) units/L ALT (7-56) units/L Total Protein (6.3-8.2) g/dL Albumin (3.9-5) g/dL
[2018-09-14] MEDS: DILAUDID PO SCH ×4 (00:27→18:13)
[2018-09-14] MEDS: HumaLOG SUB-Q SCH ×4 (00:45→19:48)
[2018-09-14] MEDS: fentaNYL DRIP Premix 2,000 MCG/100 ML BAG IV SCH ×4 (02:39→18:47)
[2018-09-14] MEDS: DUONEB *Not for PRN Use IH SCH ×4 (03:17→19:20)
[2018-09-14] MEDS: TYLENOL PO PRN (03:55)
[2018-09-14 05:23] LABS: Basophils % (Auto) 0.4 % (0.0-1.8); Hematocrit 21.4 % (30.3-42.9); Hemoglobin 7.1 gm/dl (10.1-14.3); Lymphocytes # (Auto) 1.2 K/mm3 (1.2-5.4); Lymphocytes % (Auto) 17.2 % (13.4-35.0); Mean Corpuscular HGB Conc 33 % (30-34); Mean Corpuscular Volume 94 fl (79-97); Monocytes # (Auto) 0.4 K/mm3 (0.0-0.8); Platelet Count 180 K/mm3 (140-440); Red Blood Count 2.28 M/mm3 (3.65-5.03); Red Cell Distribution Width 18.2 % (13.2-15.2)
[2018-09-14 05:29] LABS: INR 1.04 (0.87-1.13)
[2018-09-14 05:48] LABS: Alanine Aminotransferase 88 units/L (7-56); Albumin 2.2 g/dL (3.9-5); BUN/Creatinine Ratio 53; Blood Urea Nitrogen 32 mg/dL (7-17); Calcium 8.4 mg/dL (8.4-10.2); Hemolysis Index 0
[2018-09-14 06:00] LABS: Bilirubin,Direct < 0.2 mg/dL (0-0.2)
[2018-09-14] MEDS: APRESOLINE PO SCH ×3 (06:13→21:46)
[2018-09-14] MEDS: BROVANA NEBU IH SCH ×2 (07:37→19:20)
[2018-09-14] MEDS: PULMICORT IH SCH ×2 (07:37→19:20)
--- NOTE | 2018-09-14 07:43 | Hem/Onc Progress Note ---
Assessment and Plan 1. Bilateral posterior tibial and peroneal vein deep venous thrombosis, left leg edema. 2. Thrombocytopenia. The patient was on heparin-based treatment. Now it is fondaparinux. 3. Anemia. At admission, hemoglobin was normal. The patient received blood transfusion. deficiency workup. There may be a bleeding component. 4. Pulmonary embolism study is negative. 5. Camryn infection. 6. Chronic obstructive pulmonary disease. 7. Thrombocytopenia may be medication related. Heparin antibodies has been ordered. ? micafungin 8. History of renal failure. Nephrology following. 9. Maxillary sinusitis. 10. Respiratory failure, on ventilator. 11. History of cardiomyopathy. 12. We will follow the trend of platelets. 13. The patient has Dodge catheter. 14. Encephalopathy. 15. Because of anemia - low plt, there is a question if inferior vena cava filter is better to prevent more pulmonary complications. 16. I will discuss with other team members. 09/08 IVC filter was discussed as pt has anemia pt looks at you 09/09 d/w - pt SOB - d/w them reg DVT - anemia - IVC filter plt normalized Ferritin - b12 - folate normal - iron low - will follow trache eval ongoing 09/10 more awake - moves leg to command IV iron trial plt was low - now normal 09/11 hb 8 awake on vent 09/12/2018 DVT - b/l leg - was on anticoag - pt planned to have procedure anemia - IV iron h/o low plt - better follows commands - moves leg 09/13 DVT - off arixtra - ? for procedure awake - follows commands still on vent anemia - will follow - s/p iv iron 09/14 DVT - pt was on larixtra - held due to procedure - if there is a delay - ? should we restart the lovenox IVC filter was discussed but not done - as per pulm anemia - s/p iv iron fever issues still on vent plt now normalized HIT antibody negative - Patient Problems (1) Thrombocytopenia Current Visit: Yes Status: Acute (2) DVT (deep venous thrombosis) Current Visit: Yes Status: Acute (3) Anemia Current Visit: Yes Status: Acute Subjective Date of service: 09/14/18 Principal diagnosis: anemia - dvt Interval history: pt had fever - Us abdo being done Objective - Constitutional Vitals: Last Vital Signs Temp 101.5 F H 09/14/18 04:00 Pulse 74 09/14/18 06:13 Resp 15 09/14/18 06:01 BP 109/50 09/14/18 06:13 Pulse Ox 94 09/14/18 06:01 General appearance: no acute distress Performance status: 4-completely disabled - EENT Eyes: EOM intact ENT: hearing intact Lymph node exam: negative cervical - Neck Neck: normal ROM - Respiratory Respiratory effort: Positive: normal Respiratory: bilateral: diminished - Cardiovascular Heart Sounds: Present: S1 & S2 Extremity abnormal: edema - Gastrointestinal General gastrointestinal: Present: soft, non-tender Rectal Exam: deferred - Genitourinary Female genitourinary: Present: deferred - Integumentary Integumentary: warm - Musculoskeletal Musculoskeletal: generalized weakness - Neurologic Neurologic: moves all extremities - Labs Lab Results: Laboratory Results - last 24 hr 09/13/18 09/13/18 09/13/18 11:31 17:46 23:23 WBC RBC Hgb Hct MCV MCH MCHC RDW Plt Count Lymph % (Auto) [place] % (Auto) Eos % (Auto) Baso % (Auto) Lymph # [place] # Eos # Baso # Seg Neutrophils % Seg Neutrophils # PT INR POC ABG pH POC ABG pCO2 POC ABG pO2 POC ABG HCO3 POC ABG Total CO2 POC ABG O2 Sat POC ABG Base Excess FiO2 Sodium Potassium Chloride Carbon Dioxide Anion Gap BUN Creatinine Estimated GFR BUN/Creatinine Ratio Glucose POC Glucose 160 H 145 H 135 H Calcium Total Bilirubin Direct Bilirubin Indirect Bilirubin AST ALT Alkaline Phosphatase Total Protein Albumin Albumin/Globulin Ratio 09/14/18 09/14/18 09/14/18 03:56 04:55 04:55 WBC RBC Hgb Hct MCV MCH MCHC RDW Plt Count Lymph % (Auto) [place] % (Auto) Eos % (Auto) Baso % (Auto) Lymph # [place] # Eos # Baso # Seg Neutrophils % Seg Neutrophils # PT 14.2 INR 1.04 POC ABG pH 7.503 H POC ABG pCO2 49.1 H POC ABG pO2 79 L POC ABG HCO3 38.6 POC ABG Total CO2 40 POC ABG O2 Sat 96 POC ABG Base Excess 15 FiO2 50 Sodium 141 Potassium 3.8 Chloride 97.7 L Carbon Dioxide 35 H Anion Gap 12 BUN 32 H Creatinine 0.6 L Estimated GFR > 60 BUN/Creatinine Ratio 53 Glucose 114 H POC Glucose Calcium 8.4 Total Bilirubin 0.50 Direct Bilirubin < 0.2 Indirect Bilirubin 0.3 AST 60 H ALT 88 H Alkaline Phosphatase 66 Total Protein 5.6 L Albumin 2.2 L Albumin/Globulin Ratio 0.6 09/14/18 09/14/18 04:55 05:14 WBC 6.9 RBC 2.28 L Hgb 7.1 L Hct 21.4 L MCV 94 MCH 31 MCHC 33 RDW 18.2 H Plt Count 180 Lymph % (Auto) 17.2 [place] % (Auto) 6.0 Eos % (Auto) 0.0 Baso % (Auto) 0.4 Lymph # 1.2 Tr[place]ble # 0.4 Eos # 0.0 Baso # 0.0 Seg Neutrophils % 76.4 H Seg Neutrophils # 5.3 PT INR POC ABG pH POC ABG pCO2 POC ABG pO2 POC ABG HCO3 POC ABG Total CO2 POC ABG O2 Sat POC ABG Base Excess FiO2 Sodium Potassium Chloride Carbon Dioxide Anion Gap BUN Creatinine Estimated GFR BUN/Creatinine Ratio Glucose POC Glucose 115 H Calcium Total Bilirubin Direct Bilirubin Indirect Bilirubin AST ALT Alkaline Phosphatase Total Protein Albumin Albumin/Globulin Ratio Medications & Allergies - Medications Allergies/Adverse Reactions: Allergies No Known Allergies Allergy (Unverified 08/15/18 16:49) Home Medications: Home Medications Medication Instructions Recorded Confirmed Last Taken Type Carvedilol 6.25 mg PO BID 08/15/18 08/15/18 Unknown History DULoxetine 60 mg PO QDAY 08/15/18 08/15/18 Unknown History Gabapentin 600 mg PO Q6HR PRN 08/15/18 08/15/18 Unknown History Methylphenidate 5 mg PO TID 08/15/18 08/15/18 Unknown History Morphabond ER 60 mg PO Q12HR 08/15/18 08/15/18 Unknown History Pravastatin Sodium 10 mg PO QDAY 08/15/18 08/15/18 Unknown History Tizanidine HCl 4 mg PO Q12HR 08/15/18 08/15/18 Unknown History oxyCODONE /ACETAMINOPHEN 7.5 - 325 mg PO Q8HR 08/15/18 08/15/18 Unknown History ALBUTEROL Inhaler(NF) 90 mcg IH TID 08/29/18 08/29/18 Unknown History Omeprazole-Bicarb 40-1,100 Cap 40 mg PO DAILY 08/29/18 08/29/18 Unknown History Active Medications: Generic Name Dose Route Start Last Admin Trade Name Freq PRN Reason Stop Dose Admin Acetaminophen 650 mg 08/15/18 22:12 09/14/18 03:55 Tylenol PO 650 mg Q4H PRN Administration Pain MILD(1-3)/Fever >100.5/MONDRAGON Albuterol 2.5 mg 08/17/18 17:00 Proventil IH Q3HRT PRN Shortness Of Breath Albuterol/Ipratropium 1 ampul 08/20/18 14:00 09/14/18 07:37 Duoneb *Not For Prn Use* IH 1 ampul Q6HRT LAMAR Administration Lipase/Protease/Amylase 1 each 09/02/18 10:40 Pancresam Elizabeth 10,500 Unit FEEDTUBE PRN PRN For Clogged Feeding Tube Arformoterol Tartrate 15 mcg 08/18/18 20:00 09/14/18 07:37 Brovana Nebu IH 15 mcg Q12HRT LAMAR Administration Budesonide 0.5 mg 08/18/18 20:00 09/14/18 07:37 Pulmicort IH 0.5 mg Q12HRT LAMAR Administration Carvedilol 3.125 mg 08/26/18 15:19 09/13/18 21:52 Coreg PO 3.125 mg BID LAMAR Administration Famotidine 20 mg 09/05/18 10:00 09/13/18 21:52 Pepcid PO 20 mg BID LAMAR Administration Fondaparinux 7.5 mg 09/07/18 10:00 09/12/18 09:09 Arixtra SUB-Q 7.5 mg DAILY LAMAR Administration Furosemide 20 mg 09/13/18 11:00 09/13/18 13:04 Lasix PO 20 mg QAM LAMAR Administration Hydralazine HCl 10 mg 08/19/18 13:59 09/10/18 19:32 Apresoline IV 10 mg Q3H PRN Administration Hydralazine HCl 25 mg 09/01/18 14:00 09/14/18 06:13 Apresoline PO Not Given Q8HR LAMAR Hydromorphone HCl 1 mg 09/06/18 10:38 09/12/18 16:30 Dilaudid IV 1 mg Q4H PRN Administration Pain , Severe (7-10) Hydromorphone HCl 2 mg 09/06/18 12:00 09/14/18 05:53 Dilaudid PO 2 mg Q6HR [facility] Administration Hydrophilic Ointment 1 applic 08/15/18 21:55 09/01/18 09:07 Vaseline Lip Therapy TP 1 applic Q2HR PRN Administration Dry Lips Fentanyl Citrate 2,000 mcg in 100 mls @ 4.765 mls/hr 09/02/18 11:00 09/14/18 02:39 Fentanyl Drip Premix IV 4 mcg/kg/hr TITR LAMAR 19.06 mls/hr Administration Protocol 1 MCG/KG/HR Insulin Human Lispro 0 unit 09/04/18 18:00 09/14/18 06:14 Humalog SUB-Q Not Given Q6HR [facility] Protocol Metoclopramide HCl 5 mg 08/15/18 22:50 Reglan IV Q6H PRN Nausea And Vomiting Midazolam HCl 1 mg 09/07/18 09:23 09/12/18 17:34 Versed IV 1 mg Q4H PRN Administration AGITATION Ondansetron HCl 4 mg 08/15/18 22:12 08/31/18 17:52 Zofran IV 4 mg Q8H PRN Administration Nausea And Vomiting Quetiapine Fumarate 200 mg 09/04/18 15:00 09/13/18 21:52 Seroquel PO 200 mg BID [facility] Administration Senna/Docusate Sodium 2 tab 09/06/18 11:00 09/13/18 21:52 Senokot S PO 2 tab BID LAMAR Administration Simple Syrup 15 ml 09/02/18 11:24 Simple Syrup FEEDTUBE PRN PRN Hypoglycemia Simple Syrup 30 ml 09/02/18 11:24 Simple Syrup FEEDTUBE PRN PRN Hypoglycemia Sodium Bicarbonate 325 mg 09/02/18 10:40 Sodium Bicarbonate FEEDTUBE PRN PRN For Clogged Feeding Tube Sodium Chloride 10 ml 08/15/18 22:12 09/12/18 22:05 Sodium Chloride Flush Syringe 10 Ml IV 10 ml PRN PRN Administration LINE FLUSH
--- NOTE | 2018-09-14 09:30 | Ultrasound Report ---
ULTRASOUND ABDOMEN COMPLETE: TECHNIQUE: Transabdominal ultrasound with color Doppler interrogation. HISTORY: Low-grade fever, elevated liver function tests. COMPARISON: CT abdomen pelvis with contrast dated 08/18/18. FINDINGS: LIVER: Within normal limits. No evidence for parenchymal disease, enlargement or mass. BILIARY SYSTEM: Cholecystectomy. CBD measures 10 mm. No intrahepatic biliary dilatation. PANCREAS: Obscured by bowel gas. SPLEEN: 11.7 cm. Within normal limits. KIDNEYS: Normal. AORTA/IVC: Normal. ASCITES: None. IMPRESSION: Cholecystectomy, otherwise, unremarkable abdominal sonogram.
[2018-09-14] MEDS: COREG PO SCH ×2 (10:09→21:44)
[2018-09-14] MEDS: LASIX PO SCH ×2 (10:10→18:13)
[2018-09-14] MEDS: SENOKOT S PO SCH ×2 (10:10→21:44)
[2018-09-14] MEDS: PEPCID PO SCH ×2 (10:10→21:44)
--- NOTE | 2018-09-14 10:33 | Progress Note ---
Assessment and Plan Severe sepsis Intermittent fevers and leukocytosis, resolved Fungemia s/p antifungal therapy Acute hypoxic-hypercapnic respiratory failure on MVS, re-intubated h/o COPD LLExt DVT on Fondaparinux Acute kidney injury, resolved Acute encephalopathy( toxic-metabolic) Aspiration pneumonia/CAP New onset cardiomyopathy, LVEF 25-30% this admission Previous echo 03/30/2016 at [facility] revealed normal LVEF Previous stress MPI 03/29/2016 at [facility] revealed no ischemia Abnormal ECG showing LBBB, chronic Anemia s/p PRBC -Recent EGD at [facility] 08/08/2018 revealing irregular Z line, gastritis and small hiatal hernia Recent colonoscopy at [facility] 08/08/2018 revealing sigmoid polyp, transverse colon polyps, inflamed hemorrhoids and diverticulosis E.coli/Staph pneumonia Thrombocytopenia resolved Hypernatremia, resolved Hypokalemia , replete -Continue with MVS -VAP bundle addressed -Aspiration precautions -Wean supplemental oxygen and PEEP to keep O2 sats 88-90% -ABG and CXR in the morning -OGT for free water, medications and nutritional support. - Agitation and analgesia management -Monitor renal indices while on diuretics, discontinue IV lasix , continue as oral prepartion -Monitor hemodynamics -Cardioprotective measures -Stress ulcer prophylaxis -Aspiration precautions -Accuchecks with glycemic control. Target glucose of 140-180 mg/dL -Continue bronchodilators with pulmonary hygiene per RT -Maintenance of sleep -wake cycle -Mobility program -Agitation and analgesia -Influenza and pneumonia vaccination per protocol ..care plan discussed at length with RN/RT at the bedside Discussed with the at the bedside. Updated him and care plan discussed. He is agreeable to trach placement. Trachesotomy scheduled for today Rsme Fondaparinux 24 hours post procedure PROGNOSIS :GUARDED CONDITION: CRITICAL CODE STATUS: FULL CODE The high probability of a clinically significant, sudden or life-threatening deterioration of the [respiratory, cardiovascular, renal] system(s) required my full and direct attention, intervention and personal management. The aggregate critical care time was [35] minutes without overlap. Time includes spent on; [x] Data Review and interpretation [x] Patient assessment and monitoring of vital signs [x] Documentation [x] Medication orders and management Subjective Date of service: 09/14/18 Principal diagnosis: anemia - dvt Interval history: Follow up: Aspiration PNA, Abnormal CXR, Hypotension, Acute renal failure, Acute encephaloapthy, Acute hypoxemic respiratory failure on MVS Seen and examined. Vitals, labs, medications, chart and imaging reviewed. 24 hours events reviewed. No fevers, no vomiting, agitation much improved. More awake and alert, tracking voice, obeying simple commands though inconsistently Remains orally intubated, critically ill. On fentanyl at 4mcg She remains on Full mechanical ventilaotry support AC 25/450/PEEP of 10, FIO2 40%, ABG 7.52/48/58/39.2 at the bedside. Objective Vital Signs - 12hr 09/13/18 09/13/18 09/14/18 23:01 23:30 00:00 Temperature 100.5 F H Pulse Rate 83 75 77 Pulse Rate [ Anterior Bilateral Throughout] Pulse Rate [ 73 From Monitor] Respiratory 17 14 Rate Respiratory Rate [Anterior Bilateral Throughout] Blood Pressure 85/36 85/36 92/42 O2 Sat by Pulse 94 96 95 Oximetry 09/14/18 09/14/18 09/14/18 01:00 02:00 03:00 Temperature Pulse Rate 80 76 79 Pulse Rate [ Anterior Bilateral Throughout] Pulse Rate [ From Monitor] Respiratory 15 19 16 Rate Respiratory Rate [Anterior Bilateral Throughout] Blood Pressure 137/52 127/51 128/58 O2 Sat by Pulse 93 94 93 Oximetry 09/14/18 09/14/18 09/14/18 03:52 04:00 04:01 Temperature 101.5 F H Pulse Rate 79 77 77 Pulse Rate [ Anterior Bilateral Throughout] Pulse Rate [ 77 From Monitor] Respiratory 17 14 Rate Respiratory Rate [Anterior Bilateral Throughout] Blood Pressure 128/58 120/52 O2 Sat by Pulse 96 92 96 Oximetry 09/14/18 09/14/18 09/14/18 05:01 06:01 06:13 Temperature Pulse Rate 75 75 74 Pulse Rate [ Anterior Bilateral Throughout] Pulse Rate [ From Monitor] Respiratory 14 15 Rate Respiratory Rate [Anterior Bilateral Throughout] Blood Pressure 109/50 109/50 O2 Sat by Pulse 95 94 Oximetry 09/14/18 09/14/18 09/14/18 07:01 07:37 08:00 Temperature 99.7 F H Pulse Rate 75 71 77 Pulse Rate [ 77 Anterior Bilateral Throughout] Pulse Rate [ 76 From Monitor] Respiratory 15 15 Rate Respiratory 15 Rate [Anterior Bilateral Throughout] Blood Pressure 123/42 123/42 112/43 O2 Sat by Pulse 96 96 99 Oximetry 09/14/18 09/14/18 09/14/18 08:59 09:01 10:00 Temperature Pulse Rate 75 77 Pulse Rate [ 71 Anterior Bilateral Throughout] Pulse Rate [ From Monitor] Respiratory 15 16 Rate Respiratory 13 Rate [Anterior Bilateral Throughout] Blood Pressure 129/72 134/81 O2 Sat by Pulse 93 90 Oximetry Constitutional: appears uncomfortable, other (elderly looking CF, normocephalic and atraumatic) Eyes: non-icteric ENT: oropharynx moist, other (ETT 23 cm MARTHA) Neck: supple, no lymphadenopathy, no JVD, other (no thyromegaly) Effort: mildly labored Ascultation: Bilateral: diminished breath sounds, rales, rhonchi Percussion: Bilateral: not dull Cardiovascular: regular rate and rhythm, other (S1,S2, no murmurs, gallops or rubs) Gastrointestinal: normoactive bowel sounds, soft, non-tender, non-distended Integumentary: normal Extremities: no cyanosis, no ischemia or petechiae, edema (Left lower extremity) Neurologic: non-focal exam (grossly, moves all extremities, squeezes my hand on command), pupils equal and round, motor strength normal and Psychiatric: other (unable to assess) CBC and BMP: 09/21/18 04:35 09/22/18 04:11 ABG, PT/INR, D-dimer: ABG POC ABG pH 7.503 (7.35-7.45) H 09/14/18 03:56 POC ABG pCO2 49.1 (35-45) H 09/14/18 03:56 POC ABG pO2 79 (80-105) L 09/14/18 03:56 POC ABG HCO3 38.6 (22-26 mml/L) 09/14/18 03:56 POC ABG Total CO2 40 (23-27mmol/L) 09/14/18 03:56 POC ABG O2 Sat 96 09/14/18 03:56 PT/INR, D-dimer PT 14.2 Sec. (12.2-14.9) 09/14/18 04:55 INR 1.04 (0.87-1.13) 09/14/18 04:55 D-Dimer 2768.33 ng/mlDDU (0-234) H 08/15/18 18:31 Abnormal lab findings: Abnormal Labs 08/15/18 08/15/18 08/15/18 17:52 17:52 17:52 WBC 12.7 H RBC 3.25 L Hgb Hct RDW Plt Count Lymph % (Auto) [place] % (Auto) Lymph # [place] # Seg Neutrophils % Seg Neuts % (Manual) Lymphocytes % (Manual) 6.0 L Nucleated RBC % Seg Neutrophils # Seg Neutrophils # Man Lymphocytes # (Manual) 0.8 L D-Dimer POC ABG pH POC ABG pCO2 POC ABG pO2 VBG pH Sodium Potassium 3.4 L Chloride 94.6 L Carbon Dioxide 17 L BUN 67 H Creatinine 3.5 H Glucose 131 H POC Glucose Hemoglobin A1c Lactic Acid 5.20 H* Calcium 7.6 L Phosphorus Magnesium Iron TIBC AST 887 H ALT 316 H Troponin T C-Reactive Protein Total Protein Albumin 3.1 L Triglycerides LDL Cholesterol Direct HDL Cholesterol Urine WBC (Auto) Vancomycin Trough Salicylates Acetaminophen % CD3 Cells % CD19 Cells Absolute CD19 Count Miscellaneous Test Crossmatch 08/15/18 08/15/18 08/15/18 18:11 18:19 18:31 WBC RBC Hgb Hct RDW Plt Count Lymph % (Auto) [place] % (Auto) Lymph # [place] # Seg Neutrophils % Seg Neuts % (Manual) Lymphocytes % (Manual) Nucleated RBC % Seg Neutrophils # Seg Neutrophils # Man Lymphocytes # (Manual) D-Dimer 2768.33 H POC ABG pH 7.173 L POC ABG pCO2 47.8 H POC ABG pO2 177 H VBG pH 7.187 L* Sodium Potassium Chloride Carbon Dioxide BUN Creatinine Glucose POC Glucose Hemoglobin A1c Lactic Acid Calcium Phosphorus Magnesium Iron TIBC AST ALT Troponin T C-Reactive Protein Total Protein Albumin Triglycerides LDL Cholesterol Direct HDL Cholesterol Urine WBC (Auto) Vancomycin Trough Salicylates Acetaminophen % CD3 Cells % CD19 Cells Absolute CD19 Count Miscellaneous Test Crossmatch 08/15/18 08/15/18 08/15/18 18:31 19:14 19:14 WBC RBC Hgb Hct RDW Plt Count Lymph % (Auto) [place] % (Auto) Lymph # [place] # Seg Neutrophils % Seg Neuts % (Manual) Lymphocytes % (Manual) Nucleated RBC % Seg Neutrophils # Seg Neutrophils # Man Lymphocytes # (Manual) D-Dimer POC ABG pH POC ABG pCO2 POC ABG pO2 VBG pH Sodium Potassium Chloride Carbon Dioxide BUN Creatinine Glucose POC Glucose Hemoglobin A1c Lactic Acid 2.70 H* Calcium Phosphorus Magnesium Iron TIBC AST ALT Troponin T 0.454 H* C-Reactive Protein Total Protein Albumin Triglycerides 356 H LDL Cholesterol Direct 4 L HDL Cholesterol 10 L Urine WBC (Auto) Vancomycin Trough Salicylates < 0.3 L Acetaminophen % CD3 Cells % CD19 Cells Absolute CD19 Count Miscellaneous Test Crossmatch 08/15/18 08/15/18 08/15/18 19:14 19:15 23:09 WBC RBC Hgb Hct RDW Plt Count Lymph % (Auto) [place] % (Auto) Lymph # [place] # Seg Neutrophils % Seg Neuts % (Manual) Lymphocytes % (Manual) Nucleated RBC % Seg Neutrophils # Seg Neutrophils # Man Lymphocytes # (Manual) D-Dimer POC ABG pH POC ABG pCO2 POC ABG pO2 VBG pH Sodium Potassium Chloride Carbon Dioxide BUN Creatinine Glucose POC Glucose Hemoglobin A1c Lactic Acid 3.20 H* Calcium Phosphorus Magnesium Iron TIBC AST ALT Troponin T C-Reactive Protein Total Protein Albumin Triglycerides LDL Cholesterol Direct HDL Cholesterol Urine WBC (Auto) 17.0 H Vancomycin Trough Salicylates Acetaminophen < 5.0 L % CD3 Cells % CD19 Cells Absolute CD19 Count Miscellaneous Test Crossmatch 08/15/18 08/16/18 08/16/18 23:09 01:41 05:38 WBC RBC 3.07 L Hgb 9.8 L Hct 28.7 L RDW Plt Count Lymph % (Auto) [place] % (Auto) Lymph # [place] # Seg Neutrophils % Seg Neuts % (Manual) 84.0 H Lymphocytes % (Manual) 6.0 L Nucleated RBC % 4.0 H Seg Neutrophils # Seg Neutrophils # Man Lymphocytes # (Manual) 0.5 L D-Dimer POC ABG pH 7.323 L POC ABG pCO2 34.7 L POC ABG pO2 78 L VBG pH Sodium Potassium Chloride Carbon Dioxide BUN Creatinine Glucose POC Glucose Hemoglobin A1c 6.4 H Lactic Acid Calcium Phosphorus Magnesium Iron TIBC AST ALT Troponin T C-Reactive Protein Total Protein Albumin Triglycerides LDL Cholesterol Direct HDL Cholesterol Urine WBC (Auto) Vancomycin Trough Salicylates Acetaminophen % CD3 Cells % CD19 Cells Absolute CD19 Count Miscellaneous Test Crossmatch 08/16/18 08/16/18 08/17/18 05:38 22:43 03:42 WBC RBC Hgb Hct RDW Plt Count Lymph % (Auto) [place] % (Auto) Lymph # [place] # Seg Neutrophils % Seg Neuts % (Manual) Lymphocytes % (Manual) Nucleated RBC % Seg Neutrophils # Seg Neutrophils # Man Lymphocytes # (Manual) D-Dimer POC ABG pH POC ABG pCO2 POC ABG pO2 VBG pH Sodium Potassium 2.9 L* 3.1 L 2.9 L* Chloride 108.8 H 111.9 H Carbon Dioxide 17 L 19 L 21 L BUN 62 H 40 H 33 H Creatinine 2.0 H Glucose 139 H 145 H POC Glucose Hemoglobin A1c Lactic Acid Calcium 7.8 L 8.3 L Phosphorus 1.50 L Magnesium Iron TIBC AST 619 H ALT 353 H Troponin T C-Reactive Protein Total Protein 6.1 L Albumin 2.8 L Triglycerides LDL Cholesterol Direct HDL Cholesterol Urine WBC (Auto) Vancomycin Trough Salicylates Acetaminophen % CD3 Cells % CD19 Cells Absolute CD19 Count Miscellaneous Test Crossmatch 08/17/18 08/17/18 08/18/18 11:02 16:42 03:28 WBC RBC Hgb Hct RDW Plt Count Lymph % (Auto) [place] % (Auto) Lymph # [place] # Seg Neutrophils % Seg Neuts % (Manual) Lymphocytes % (Manual) Nucleated RBC % Seg Neutrophils # Seg Neutrophils # Man Lymphocytes # (Manual) D-Dimer POC ABG pH 7.483 H 7.499 H POC ABG pCO2 POC ABG pO2 VBG pH Sodium 147 H Potassium 3.2 L Chloride 115.8 H Carbon Dioxide BUN 23 H Creatinine Glucose 121 H POC Glucose Hemoglobin A1c Lactic Acid Calcium 8.1 L Phosphorus 2.30 L D Magnesium Iron TIBC AST ALT Troponin T C-Reactive Protein Total Protein Albumin Triglycerides LDL Cholesterol Direct HDL Cholesterol Urine WBC (Auto) Vancomycin Trough Salicylates Acetaminophen % CD3 Cells % CD19 Cells Absolute CD19 Count Miscellaneous Test Crossmatch 08/18/18 08/18/18 08/18/18 04:10 13:39 13:39 WBC RBC Hgb Hct RDW Plt Count Lymph % (Auto) [place] % (Auto) Lymph # [place] # Seg Neutrophils % Seg Neuts % (Manual) Lymphocytes % (Manual) Nucleated RBC % Seg Neutrophils # Seg Neutrophils # Man Lymphocytes # (Manual) D-Dimer POC ABG pH POC ABG pCO2 POC ABG pO2 VBG pH Sodium 147 H Potassium 3.3 L Chloride 111.9 H Carbon Dioxide BUN 21 H Creatinine Glucose 113 H POC Glucose Hemoglobin A1c Lactic Acid Calcium Phosphorus 1.50 L D Magnesium Iron TIBC AST ALT Troponin T 0.317 H* D C-Reactive Protein 10.70 H Total Protein Albumin Triglycerides LDL Cholesterol Direct HDL Cholesterol Urine WBC (Auto) Vancomycin Trough Salicylates Acetaminophen % CD3 Cells % CD19 Cells Absolute CD19 Count Miscellaneous Test Crossmatch 08/18/18 08/19/18 08/19/18 16:51 03:47 04:15 WBC RBC Hgb Hct RDW Plt Count Lymph % (Auto) [place] % (Auto) Lymph # [place] # Seg Neutrophils % Seg Neuts % (Manual) Lymphocytes % (Manual) Nucleated RBC % Seg Neutrophils # Seg Neutrophils # Man Lymphocytes # (Manual) D-Dimer POC ABG pH 7.454 H 7.482 H POC ABG pCO2 POC ABG pO2 65 L VBG pH Sodium 154 H Potassium 3.3 L Chloride 115.1 H Carbon Dioxide BUN 19 H Creatinine Glucose 117 H POC Glucose Hemoglobin A1c Lactic Acid Calcium 7.8 L Phosphorus Magnesium Iron TIBC AST ALT Troponin T C-Reactive Protein Total Protein Albumin Triglycerides LDL Cholesterol Direct HDL Cholesterol Urine WBC (Auto) Vancomycin Trough Salicylates Acetaminophen % CD3 Cells % CD19 Cells Absolute CD19 Count Miscellaneous Test Crossmatch 08/19/18 08/19/18 08/20/18 14:32 16:18 03:51 WBC RBC Hgb Hct RDW Plt Count Lymph % (Auto) [place] % (Auto) Lymph # [place] # Seg Neutrophils % Seg Neuts % (Manual) Lymphocytes % (Manual) Nucleated RBC % Seg Neutrophils # Seg Neutrophils # Man Lymphocytes # (Manual) D-Dimer POC ABG pH 7.483 H POC ABG pCO2 33.4 L POC ABG pO2 51 L 74 L VBG pH Sodium Potassium Chloride Carbon Dioxide BUN Creatinine Glucose POC Glucose Hemoglobin A1c Lactic Acid Calcium Phosphorus Magnesium Iron TIBC AST ALT Troponin T C-Reactive Protein Total Protein Albumin Triglycerides LDL Cholesterol Direct HDL Cholesterol Urine WBC (Auto) Vancomycin Trough Salicylates Acetaminophen % CD3 Cells 44 L % CD19 Cells 41 H Absolute CD19 Count 1290 H Miscellaneous Test Crossmatch 08/20/18 08/21/18 08/21/18 05:25 03:54 05:45 WBC 24.1 H RBC 2.83 L Hgb 8.8 L Hct 26.7 L RDW 15.7 H Plt Count 127 L Lymph % (Auto) [place] % (Auto) Lymph # [place] # Seg Neutrophils % Seg Neuts % (Manual) 94.0 H Lymphocytes % (Manual) 4.0 L Nucleated RBC % 1.0 H Seg Neutrophils # Seg Neutrophils # Man 22.7 H Lymphocytes # (Manual) 1.0 L D-Dimer POC ABG pH POC ABG pCO2 31.9 L POC ABG pO2 66 L VBG pH Sodium 146 H D Potassium Chloride 111.2 H Carbon Dioxide BUN 24 H Creatinine Glucose 141 H POC Glucose Hemoglobin A1c Lactic Acid Calcium 8.1 L Phosphorus Magnesium Iron TIBC AST 65 H ALT 104 H Troponin T C-Reactive Protein Total Protein 6.2 L Albumin 2.6 L Triglycerides LDL Cholesterol Direct HDL Cholesterol Urine WBC (Auto) Vancomycin Trough Salicylates Acetaminophen % CD3 Cells % CD19 Cells Absolute CD19 Count Miscellaneous Test Crossmatch 08/21/18 08/22/18 08/22/18 05:45 06:20 06:45 WBC RBC Hgb Hct RDW Plt Count Lymph % (Auto) [place] % (Auto) Lymph # [place] # Seg Neutrophils % Seg Neuts % (Manual) Lymphocytes % (Manual) Nucleated RBC % Seg Neutrophils # Seg Neutrophils # Man Lymphocytes # (Manual) D-Dimer POC ABG pH POC ABG pCO2 32.9 L POC ABG pO2 VBG pH Sodium Potassium 3.5 L Chloride 109.4 H 112.4 H Carbon Dioxide 21 L 20 L BUN 50 H 61 H Creatinine 2.0 H D 1.9 H Glucose 144 H 154 H POC Glucose Hemoglobin A1c Lactic Acid Calcium 7.6 L 7.8 L Phosphorus Magnesium Iron TIBC AST ALT Troponin T C-Reactive Protein Total Protein 5.3 L Albumin 2.1 L Triglycerides LDL Cholesterol Direct HDL Cholesterol Urine WBC (Auto) Vancomycin Trough Salicylates Acetaminophen % CD3 Cells % CD19 Cells Absolute CD19 Count Miscellaneous Test Crossmatch 08/22/18 08/22/18 08/22/18 06:45 15:29 18:40 WBC RBC Hgb Hct RDW Plt Count Lymph % (Auto) [place] % (Auto) Lymph # [place] # Seg Neutrophils % Seg Neuts % (Manual) Lymphocytes % (Manual) Nucleated RBC % Seg Neutrophils # Seg Neutrophils # Man Lymphocytes # (Manual) D-Dimer POC ABG pH POC ABG pCO2 POC ABG pO2 VBG pH Sodium Potassium Chloride Carbon Dioxide BUN Creatinine Glucose POC Glucose 169 H Hemoglobin A1c Lactic Acid Calcium Phosphorus Magnesium Iron TIBC AST ALT Troponin T C-Reactive Protein 4.70 H Total Protein Albumin Triglycerides 197 H LDL Cholesterol Direct HDL Cholesterol Urine WBC (Auto) Vancomycin Trough Salicylates Acetaminophen % CD3 Cells % CD19 Cells Absolute CD19 Count Miscellaneous Test Crossmatch 08/23/18 08/23/18 08/23/18 03:59 21:19 Unknown WBC 12.1 H RBC 2.29 L Hgb 7.1 L Hct 21.7 L RDW 15.7 H Plt Count 106 L Lymph % (Auto) [place] % (Auto) Lymph # [place] # Seg Neutrophils % Seg Neuts % (Manual) 92.0 H Lymphocytes % (Manual) 4.0 L Nucleated RBC % Seg Neutrophils # Seg Neutrophils # Man 11.1 H Lymphocytes # (Manual) 0.5 L D-Dimer POC ABG pH 7.306 L POC ABG pCO2 31.3 L POC ABG pO2 119 H 75 L VBG pH Sodium Potassium Chloride Carbon Dioxide BUN Creatinine Glucose POC Glucose Hemoglobin A1c Lactic Acid Calcium Phosphorus Magnesium Iron TIBC AST ALT Troponin T C-Reactive Protein Total Protein Albumin Triglycerides LDL Cholesterol Direct HDL Cholesterol Urine WBC (Auto) Vancomycin Trough Salicylates Acetaminophen % CD3 Cells % CD19 Cells Absolute CD19 Count Miscellaneous Test Crossmatch 08/23/18 08/24/18 08/24/18 Unknown 04:18 08:30 WBC 12.8 H RBC 2.24 L Hgb 7.0 L Hct 21.1 L RDW Plt Count Lymph % (Auto) [place] % (Auto) Lymph # [place] # Seg Neutrophils % Seg Neuts % (Manual) 93.0 H Lymphocytes % (Manual) 6.0 L Nucleated RBC % Seg Neutrophils # Seg Neutrophils # Man 11.9 H Lymphocytes # (Manual) 0.8 L D-Dimer POC ABG pH POC ABG pCO2 POC ABG pO2 78 L VBG pH Sodium Potassium Chloride 115.7 H Carbon Dioxide 21 L BUN 64 H Creatinine 2.0 H Glucose 149 H POC Glucose Hemoglobin A1c Lactic Acid Calcium 7.5 L Phosphorus Magnesium Iron TIBC AST ALT Troponin T C-Reactive Protein Total Protein 4.8 L Albumin 2.0 L Triglycerides LDL Cholesterol Direct HDL Cholesterol Urine WBC (Auto) Vancomycin Trough Salicylates Acetaminophen % CD3 Cells % CD19 Cells Absolute CD19 Count Miscellaneous Test Crossmatch 08/24/18 08/24/18 08/24/18 08:30 17:44 18:28 WBC RBC Hgb Hct RDW Plt Count Lymph % (Auto) [place] % (Auto) Lymph # [place] # Seg Neutrophils % Seg Neuts % (Manual) Lymphocytes % (Manual) Nucleated RBC % Seg Neutrophils # Seg Neutrophils # Man Lymphocytes # (Manual) D-Dimer POC ABG pH 7.474 H POC ABG pCO2 POC ABG pO2 61 L VBG pH Sodium Potassium Chloride 108.3 H Carbon Dioxide 20 L BUN 65 H Creatinine 2.0 H Glucose 167 H POC Glucose 164 H Hemoglobin A1c Lactic Acid Calcium 7.7 L Phosphorus Magnesium Iron TIBC AST ALT Troponin T C-Reactive Protein Total Protein 5.3 L Albumin 2.2 L Triglycerides LDL Cholesterol Direct HDL Cholesterol Urine WBC (Auto) Vancomycin Trough Salicylates Acetaminophen % CD3 Cells % CD19 Cells Absolute CD19 Count Miscellaneous Test Crossmatch 08/25/18 08/25/18 08/25/18 03:35 05:20 05:20 WBC RBC Hgb 6.7 L Hct 21.0 L RDW Plt Count Lymph % (Auto) [place] % (Auto) Lymph # [place] # Seg Neutrophils % Seg Neuts % (Manual) Lymphocytes % (Manual) Nucleated RBC % Seg Neutrophils # Seg Neutrophils # Man Lymphocytes # (Manual) D-Dimer POC ABG pH POC ABG pCO2 POC ABG pO2 79 L VBG pH Sodium Potassium Chloride Carbon Dioxide 21 L BUN 71 H Creatinine 3.1 H D Glucose 171 H POC Glucose Hemoglobin A1c Lactic Acid Calcium 7.5 L Phosphorus Magnesium Iron TIBC AST ALT Troponin T C-Reactive Protein Total Protein Albumin Triglycerides LDL Cholesterol Direct HDL Cholesterol Urine WBC (Auto) Vancomycin Trough Salicylates Acetaminophen % CD3 Cells % CD19 Cells Absolute CD19 Count Miscellaneous Test Crossmatch 08/25/18 08/25/18 08/25/18 05:20 08:52 12:42 WBC RBC Hgb Hct RDW Plt Count Lymph % (Auto) [place] % (Auto) Lymph # [place] # Seg Neutrophils % Seg Neuts % (Manual) Lymphocytes % (Manual) Nucleated RBC % Seg Neutrophils # Seg Neutrophils # Man Lymphocytes # (Manual) D-Dimer POC ABG pH POC ABG pCO2 POC ABG pO2 VBG pH Sodium Potassium Chloride Carbon Dioxide BUN Creatinine Glucose POC Glucose 166 H Hemoglobin A1c Lactic Acid Calcium Phosphorus Magnesium Iron TIBC AST ALT Troponin T C-Reactive Protein 5.00 H Total Protein Albumin Triglycerides LDL Cholesterol Direct HDL Cholesterol Urine WBC (Auto) Vancomycin Trough Salicylates Acetaminophen % CD3 Cells % CD19 Cells Absolute CD19 Count Miscellaneous Test Crossmatch See Detail 08/25/18 08/26/18 08/26/18 18:05 00:13 04:53 WBC RBC Hgb Hct RDW Plt Count Lymph % (Auto) [place] % (Auto) Lymph # [place] # Seg Neutrophils % Seg Neuts % (Manual) Lymphocytes % (Manual) Nucleated RBC % Seg Neutrophils # Seg Neutrophils # Man Lymphocytes # (Manual) D-Dimer POC ABG pH POC ABG pCO2 30.9 L POC ABG pO2 70 L VBG pH Sodium Potassium Chloride Carbon Dioxide BUN Creatinine Glucose POC Glucose 121 H 164 H Hemoglobin A1c Lactic Acid Calcium Phosphorus Magnesium Iron TIBC AST ALT Troponin T C-Reactive Protein Total Protein Albumin Triglycerides LDL Cholesterol Direct HDL Cholesterol Urine WBC (Auto) Vancomycin Trough Salicylates Acetaminophen % CD3 Cells % CD19 Cells Absolute CD19 Count Miscellaneous Test Crossmatch 08/26/18 08/26/18 08/26/18 05:42 06:00 06:00 WBC RBC 2.62 L Hgb 7.7 L Hct 23.0 L RDW 22.0 H Plt Count Lymph % (Auto) 6.3 L [place] % (Auto) Lymph # 0.7 L [place] # Seg Neutrophils % 88.1 H Seg Neuts % (Manual) Lymphocytes % (Manual) Nucleated RBC % Seg Neutrophils # 9.6 H Seg Neutrophils # Man Lymphocytes # (Manual) D-Dimer POC ABG pH POC ABG pCO2 POC ABG pO2 VBG pH Sodium Potassium Chloride Carbon Dioxide 21 L BUN 70 H Creatinine 3.3 H Glucose 146 H POC Glucose 149 H Hemoglobin A1c Lactic Acid Calcium 8.0 L Phosphorus Magnesium Iron TIBC AST ALT Troponin T C-Reactive Protein Total Protein Albumin Triglycerides LDL Cholesterol Direct HDL Cholesterol Urine WBC (Auto) Vancomycin Trough Salicylates Acetaminophen % CD3 Cells % CD19 Cells Absolute CD19 Count Miscellaneous Test Crossmatch 08/26/18 08/26/18 08/27/18 11:37 23:54 04:35 WBC RBC 2.50 L Hgb 7.6 L Hct 22.3 L RDW 21.8 H Plt Count Lymph % (Auto) 7.3 L [place] % (Auto) Lymph # 0.7 L [place] # Seg Neutrophils % 85.6 H Seg Neuts % (Manual) Lymphocytes % (Manual) Nucleated RBC % Seg Neutrophils # 8.6 H Seg Neutrophils # Man Lymphocytes # (Manual) D-Dimer POC ABG pH POC ABG pCO2 POC ABG pO2 VBG pH Sodium Potassium Chloride Carbon Dioxide BUN Creatinine Glucose POC Glucose 183 H 150 H Hemoglobin A1c Lactic Acid Calcium Phosphorus Magnesium Iron TIBC AST ALT Troponin T C-Reactive Protein Total Protein Albumin Triglycerides LDL Cholesterol Direct HDL Cholesterol Urine WBC (Auto) Vancomycin Trough Salicylates Acetaminophen % CD3 Cells % CD19 Cells Absolute CD19 Count Miscellaneous Test Crossmatch 08/27/18 08/27/18 08/28/18 04:35 12:17 04:43 WBC RBC Hgb Hct RDW Plt Count Lymph % (Auto) [place] % (Auto) Lymph # [place] # Seg Neutrophils % Seg Neuts % (Manual) Lymphocytes % (Manual) Nucleated RBC % Seg Neutrophils # Seg Neutrophils # Man Lymphocytes # (Manual) D-Dimer POC ABG pH POC ABG pCO2 32.1 L 33.8 L POC ABG pO2 68 L 78 L VBG pH Sodium Potassium Chloride Carbon Dioxide 19 L BUN 67 H Creatinine 2.9 H Glucose 155 H POC Glucose Hemoglobin A1c Lactic Acid Calcium Phosphorus 4.70 H Magnesium Iron TIBC AST ALT Troponin T C-Reactive Protein Total Protein Albumin Triglycerides LDL Cholesterol Direct HDL Cholesterol Urine WBC (Auto) Vancomycin Trough Salicylates Acetaminophen % CD3 Cells % CD19 Cells Absolute CD19 Count Miscellaneous Test Crossmatch 08/28/18 08/28/18 08/28/18 05:03 05:20 05:20 WBC RBC 2.43 L Hgb 7.4 L Hct 21.8 L RDW 20.8 H Plt Count Lymph % (Auto) 7.6 L [place] % (Auto) 8.7 H Lymph # 0.7 L [place] # Seg Neutrophils % 82.9 H Seg Neuts % (Manual) Lymphocytes % (Manual) Nucleated RBC % Seg Neutrophils # Seg Neutrophils # Man Lymphocytes # (Manual) D-Dimer POC ABG pH POC ABG pCO2 POC ABG pO2 VBG pH Sodium Potassium Chloride 107.8 H Carbon Dioxide 21 L BUN 55 H Creatinine 2.0 H Glucose 177 H POC Glucose 160 H Hemoglobin A1c Lactic Acid Calcium Phosphorus Magnesium Iron TIBC AST ALT Troponin T C-Reactive Protein Total Protein Albumin Triglycerides LDL Cholesterol Direct HDL Cholesterol Urine WBC (Auto) Vancomycin Trough Salicylates Acetaminophen % CD3 Cells % CD19 Cells Absolute CD19 Count Miscellaneous Test Crossmatch 03/31/19 03/31/19 03/31/19 12:18 18:58 22:31 WBC RBC Hgb Hct RDW Plt Count Lymph % (Auto) [place] % (Auto) Lymph # [place] # Seg Neutrophils % Seg Neuts % (Manual) Lymphocytes % (Manual) Nucleated RBC % Seg Neutrophils # Seg Neutrophils # Man Lymphocytes # (Manual) D-Dimer POC ABG pH POC ABG pCO2 34.4 L POC ABG pO2 67 L VBG pH Sodium Potassium Chloride Carbon Dioxide BUN Creatinine Glucose POC Glucose 164 H 149 H Hemoglobin A1c Lactic Acid Calcium Phosphorus Magnesium Iron TIBC AST ALT Troponin T C-Reactive Protein Total Protein Albumin Triglycerides LDL Cholesterol Direct HDL Cholesterol Urine WBC (Auto) Vancomycin Trough Salicylates Acetaminophen % CD3 Cells % CD19 Cells Absolute CD19 Count Miscellaneous Test Crossmatch 08/28/18 08/29/18 08/29/18 23:33 05:25 05:25 WBC RBC 2.30 L Hgb 7.0 L Hct 20.9 L RDW 21.0 H Plt Count Lymph % (Auto) 11.5 L [place] % (Auto) 9.2 H Lymph # 0.8 L [place] # Seg Neutrophils % 78.8 H Seg Neuts % (Manual) Lymphocytes % (Manual) Nucleated RBC % Seg Neutrophils # Seg Neutrophils # Man Lymphocytes # (Manual) D-Dimer POC ABG pH POC ABG pCO2 POC ABG pO2 VBG pH Sodium Potassium Chloride 111.1 H Carbon Dioxide BUN 55 H Creatinine 1.8 H Glucose 162 H POC Glucose 143 H Hemoglobin A1c Lactic Acid Calcium Phosphorus Magnesium Iron TIBC AST 46 H ALT < 5 L Troponin T C-Reactive Protein Total Protein 5.7 L Albumin 2.1 L Triglycerides LDL Cholesterol Direct HDL Cholesterol Urine WBC (Auto) Vancomycin Trough Salicylates Acetaminophen % CD3 Cells % CD19 Cells Absolute CD19 Count Miscellaneous Test Crossmatch 08/29/18 08/29/18 08/30/18 18:19 23:35 05:03 WBC RBC Hgb Hct RDW Plt Count Lymph % (Auto) [place] % (Auto) Lymph # [place] # Seg Neutrophils % Seg Neuts % (Manual) Lymphocytes % (Manual) Nucleated RBC % Seg Neutrophils # Seg Neutrophils # Man Lymphocytes # (Manual) D-Dimer POC ABG pH POC ABG pCO2 POC ABG pO2 VBG pH Sodium Potassium Chloride Carbon Dioxide BUN Creatinine Glucose POC Glucose 155 H 139 H 122 H Hemoglobin A1c Lactic Acid Calcium Phosphorus Magnesium Iron TIBC AST ALT Troponin T C-Reactive Protein Total Protein Albumin Triglycerides LDL Cholesterol Direct HDL Cholesterol Urine WBC (Auto) Vancomycin Trough Salicylates Acetaminophen % CD3 Cells % CD19 Cells Absolute CD19 Count Miscellaneous Test Crossmatch 08/30/18 08/30/18 08/30/18 09:33 09:33 09:54 WBC RBC 2.58 L Hgb 7.9 L Hct 23.5 L RDW 20.9 H Plt Count Lymph % (Auto) 8.0 L [place] % (Auto) 9.7 H Lymph # 0.8 L [place] # 1.0 H Seg Neutrophils % 82.1 H Seg Neuts % (Manual) Lymphocytes % (Manual) Nucleated RBC % Seg Neutrophils # 8.2 H Seg Neutrophils # Man Lymphocytes # (Manual) D-Dimer POC ABG pH POC ABG pCO2 POC ABG pO2 VBG pH Sodium 146 H Potassium Chloride 110.7 H Carbon Dioxide BUN 56 H Creatinine 1.9 H Glucose 145 H POC Glucose Hemoglobin A1c Lactic Acid Calcium Phosphorus 4.60 H Magnesium Iron TIBC AST ALT < 5 L Troponin T C-Reactive Protein Total Protein Albumin 2.7 L Triglycerides LDL Cholesterol Direct HDL Cholesterol Urine WBC (Auto) Vancomycin Trough Salicylates Acetaminophen % CD3 Cells % CD19 Cells Absolute CD19 Count Miscellaneous Test Flexitest 1 H Crossmatch 08/30/18 08/30/18 08/30/18 09:57 11:26 18:08 WBC RBC Hgb Hct RDW Plt Count Lymph % (Auto) [place] % (Auto) Lymph # [place] # Seg Neutrophils % Seg Neuts % (Manual) Lymphocytes % (Manual) Nucleated RBC % Seg Neutrophils # Seg Neutrophils # Man Lymphocytes # (Manual) D-Dimer POC ABG pH POC ABG pCO2 POC ABG pO2 VBG pH Sodium Potassium Chloride Carbon Dioxide BUN Creatinine Glucose POC Glucose 149 H 156 H Hemoglobin A1c Lactic Acid Calcium Phosphorus Magnesium Iron TIBC AST ALT Troponin T C-Reactive Protein Total Protein Albumin Triglycerides LDL Cholesterol Direct HDL Cholesterol Urine WBC (Auto) Vancomycin Trough Salicylates Acetaminophen % CD3 Cells % CD19 Cells Absolute CD19 Count Miscellaneous Test Flexitest 1 H Crossmatch 08/30/18 08/31/18 08/31/18 23:14 05:16 08:40 WBC RBC Hgb Hct RDW Plt Count Lymph % (Auto) [place] % (Auto) Lymph # [place] # Seg Neutrophils % Seg Neuts % (Manual) Lymphocytes % (Manual) Nucleated RBC % Seg Neutrophils # Seg Neutrophils # Man Lymphocytes # (Manual) D-Dimer POC ABG pH POC ABG pCO2 POC ABG pO2 VBG pH Sodium 151 H Potassium Chloride 113.8 H Carbon Dioxide BUN 45 H Creatinine Glucose 144 H POC Glucose 117 H 133 H Hemoglobin A1c Lactic Acid Calcium Phosphorus Magnesium Iron TIBC AST ALT Troponin T C-Reactive Protein Total Protein Albumin Triglycerides LDL Cholesterol Direct HDL Cholesterol Urine WBC (Auto) Vancomycin Trough Salicylates Acetaminophen % CD3 Cells % CD19 Cells Absolute CD19 Count Miscellaneous Test Crossmatch 08/31/18 09/01/18 09/01/18 23:46 04:45 04:45 WBC RBC 2.38 L Hgb 7.3 L Hct 22.1 L RDW 21.1 H Plt Count Lymph % (Auto) [place] % (Auto) Lymph # [place] # Seg Neutrophils % Seg Neuts % (Manual) 93.0 H Lymphocytes % (Manual) 4.0 L Nucleated RBC % Seg Neutrophils # Seg Neutrophils # Man 10.1 H Lymphocytes # (Manual) 0.4 L D-Dimer POC ABG pH POC ABG pCO2 POC ABG pO2 VBG pH Sodium 156 H Potassium 3.1 L Chloride 115.2 H Carbon Dioxide BUN 34 H Creatinine Glucose 125 H POC Glucose 124 H Hemoglobin A1c Lactic Acid Calcium Phosphorus Magnesium Iron TIBC AST ALT Troponin T C-Reactive Protein Total Protein Albumin Triglycerides LDL Cholesterol Direct HDL Cholesterol Urine WBC (Auto) Vancomycin Trough Salicylates Acetaminophen % CD3 Cells % CD19 Cells Absolute CD19 Count Miscellaneous Test Crossmatch 09/01/18 09/01/18 09/01/18 05:34 11:20 17:52 WBC RBC Hgb Hct RDW Plt Count Lymph % (Auto) [place] % (Auto) Lymph # [place] # Seg Neutrophils % Seg Neuts % (Manual) Lymphocytes % (Manual) Nucleated RBC % Seg Neutrophils # Seg Neutrophils # Man Lymphocytes # (Manual) D-Dimer POC ABG pH 7.553 H POC ABG pCO2 POC ABG pO2 74 L VBG pH Sodium Potassium Chloride Carbon Dioxide BUN Creatinine Glucose POC Glucose 128 H 146 H Hemoglobin A1c Lactic Acid Calcium Phosphorus Magnesium Iron TIBC AST ALT Troponin T C-Reactive Protein Total Protein Albumin Triglycerides LDL Cholesterol Direct HDL Cholesterol Urine WBC (Auto) Vancomycin Trough Salicylates Acetaminophen % CD3 Cells % CD19 Cells Absolute CD19 Count Miscellaneous Test Crossmatch 09/01/18 09/02/18 09/02/18 17:52 04:13 04:58 WBC 16.4 H RBC 2.64 L Hgb 7.9 L Hct 24.3 L RDW 20.8 H Plt Count Lymph % (Auto) [place] % (Auto) Lymph # [place] # Seg Neutrophils % Seg Neuts % (Manual) 96.0 H Lymphocytes % (Manual) 1.0 L Nucleated RBC % Seg Neutrophils # Seg Neutrophils # Man 15.7 H Lymphocytes # (Manual) 0.2 L D-Dimer POC ABG pH 7.488 H POC ABG pCO2 POC ABG pO2 63 L VBG pH Sodium Potassium Chloride Carbon Dioxide BUN Creatinine Glucose POC Glucose 143 H Hemoglobin A1c Lactic Acid Calcium Phosphorus Magnesium Iron TIBC AST ALT Troponin T C-Reactive Protein Total Protein Albumin Triglycerides LDL Cholesterol Direct HDL Cholesterol Urine WBC (Auto) Vancomycin Trough Salicylates Acetaminophen % CD3 Cells % CD19 Cells Absolute CD19 Count Miscellaneous Test Crossmatch 09/02/18 09/02/18 09/02/18 04:58 11:03 18:18 WBC RBC Hgb Hct RDW Plt Count Lymph % (Auto) [place] % (Auto) Lymph # [place] # Seg Neutrophils % Seg Neuts % (Manual) Lymphocytes % (Manual) Nucleated RBC % Seg Neutrophils # Seg Neutrophils # Man Lymphocytes # (Manual) D-Dimer POC ABG pH 7.344 L POC ABG pCO2 52.8 H POC ABG pO2 VBG pH Sodium 158 H Potassium 2.9 L* Chloride 115.7 H Carbon Dioxide BUN 27 H Creatinine 0.6 L Glucose 128 H POC Glucose 121 H Hemoglobin A1c Lactic Acid Calcium Phosphorus Magnesium 1.60 L Iron TIBC AST 64 H ALT Troponin T C-Reactive Protein Total Protein Albumin 2.6 L Triglycerides LDL Cholesterol Direct HDL Cholesterol Urine WBC (Auto) Vancomycin Trough Salicylates Acetaminophen % CD3 Cells % CD19 Cells Absolute CD19 Count Miscellaneous Test Crossmatch 09/02/18 09/03/18 09/03/18 23:06 03:36 04:25 WBC RBC 2.20 L Hgb 6.7 L Hct 20.9 L RDW 21.1 H Plt Count Lymph % (Auto) [place] % (Auto) Lymph # [place] # Seg Neutrophils % Seg Neuts % (Manual) 90.0 H Lymphocytes % (Manual) 5.0 L Nucleated RBC % Seg Neutrophils # Seg Neutrophils # Man 8.7 H Lymphocytes # (Manual) 0.5 L D-Dimer POC ABG pH POC ABG pCO2 POC ABG pO2 54 L VBG pH Sodium Potassium Chloride Carbon Dioxide BUN Creatinine Glucose POC Glucose 121 H Hemoglobin A1c Lactic Acid Calcium Phosphorus Magnesium Iron TIBC AST ALT Troponin T C-Reactive Protein Total Protein Albumin Triglycerides LDL Cholesterol Direct HDL Cholesterol Urine WBC (Auto) Vancomycin Trough Salicylates Acetaminophen % CD3 Cells % CD19 Cells Absolute CD19 Count Miscellaneous Test Crossmatch 09/03/18 09/03/18 09/03/18 04:25 05:45 10:24 WBC RBC Hgb Hct RDW Plt Count Lymph % (Auto) [place] % (Auto) Lymph # [place] # Seg Neutrophils % Seg Neuts % (Manual) Lymphocytes % (Manual) Nucleated RBC % Seg Neutrophils # Seg Neutrophils # Man Lymphocytes # (Manual) D-Dimer POC ABG pH POC ABG pCO2 POC ABG pO2 VBG pH Sodium 158 H Potassium 3.1 L Chloride 120.4 H Carbon Dioxide BUN 25 H Creatinine 0.6 L Glucose 127 H POC Glucose 178 H Hemoglobin A1c Lactic Acid Calcium 7.9 L Phosphorus Magnesium Iron TIBC AST ALT Troponin T C-Reactive Protein Total Protein 6.0 L Albumin 2.4 L Triglycerides LDL Cholesterol Direct HDL Cholesterol Urine WBC (Auto) Vancomycin Trough Salicylates Acetaminophen % CD3 Cells % CD19 Cells Absolute CD19 Count Miscellaneous Test Crossmatch See Detail 09/03/18 09/03/18 09/04/18 11:27 23:09 04:42 WBC RBC Hgb Hct RDW Plt Count Lymph % (Auto) [place] % (Auto) Lymph # [place] # Seg Neutrophils % Seg Neuts % (Manual) Lymphocytes % (Manual) Nucleated RBC % Seg Neutrophils # Seg Neutrophils # Man Lymphocytes # (Manual) D-Dimer POC ABG pH 7.293 L POC ABG pCO2 50.2 H POC ABG pO2 VBG pH Sodium Potassium Chloride Carbon Dioxide BUN Creatinine Glucose POC Glucose 107 H 139 H Hemoglobin A1c Lactic Acid Calcium Phosphorus Magnesium Iron TIBC AST ALT Troponin T C-Reactive Protein Total Protein Albumin Triglycerides LDL Cholesterol Direct HDL Cholesterol Urine WBC (Auto) Vancomycin Trough Salicylates Acetaminophen % CD3 Cells % CD19 Cells Absolute CD19 Count Miscellaneous Test Crossmatch 09/04/18 09/04/18 09/04/18 05:00 06:30 06:30 WBC RBC 2.32 L Hgb 7.0 L Hct 21.9 L RDW 20.2 H Plt Count Lymph % (Auto) [place] % (Auto) Lymph # [place] # Seg Neutrophils % 80.1 H Seg Neuts % (Manual) Lymphocytes % (Manual) Nucleated RBC % Seg Neutrophils # 8.2 H Seg Neutrophils # Man Lymphocytes # (Manual) D-Dimer POC ABG pH POC ABG pCO2 POC ABG pO2 VBG pH Sodium 150 H D Potassium Chloride 115.9 H Carbon Dioxide BUN 21 H Creatinine 0.6 L Glucose 125 H POC Glucose 154 H Hemoglobin A1c Lactic Acid Calcium 7.9 L Phosphorus Magnesium 1.50 L Iron TIBC AST ALT Troponin T C-Reactive Protein Total Protein Albumin Triglycerides LDL Cholesterol Direct HDL Cholesterol Urine WBC (Auto) Vancomycin Trough Salicylates Acetaminophen % CD3 Cells % CD19 Cells Absolute CD19 Count Miscellaneous Test Crossmatch 09/04/18 09/04/18 09/04/18 11:20 11:51 18:27 WBC RBC Hgb Hct RDW Plt Count Lymph % (Auto) [place] % (Auto) Lymph # [place] # Seg Neutrophils % Seg Neuts % (Manual) Lymphocytes % (Manual) Nucleated RBC % Seg Neutrophils # Seg Neutrophils # Man Lymphocytes # (Manual) D-Dimer POC ABG pH 7.244 L POC ABG pCO2 54.2 H POC ABG pO2 62 L VBG pH Sodium Potassium Chloride Carbon Dioxide BUN Creatinine Glucose POC Glucose 156 H 129 H Hemoglobin A1c Lactic Acid Calcium Phosphorus Magnesium Iron TIBC AST ALT Troponin T C-Reactive Protein Total Protein Albumin Triglycerides LDL Cholesterol Direct HDL Cholesterol Urine WBC (Auto) Vancomycin Trough Salicylates Acetaminophen % CD3 Cells % CD19 Cells Absolute CD19 Count Miscellaneous Test Crossmatch 09/05/18 09/05/18 09/05/18 03:46 04:00 04:00 WBC RBC 2.13 L Hgb 6.4 L Hct 20.1 L RDW 19.9 H Plt Count 117 L Lymph % (Auto) [place] % (Auto) Lymph # 0.9 L [place] # Seg Neutrophils % 81.7 H Seg Neuts % (Manual) Lymphocytes % (Manual) Nucleated RBC % Seg Neutrophils # Seg Neutrophils # Man Lymphocytes # (Manual) D-Dimer POC ABG pH 7.282 L POC ABG pCO2 57.3 H POC ABG pO2 124 H VBG pH Sodium Potassium Chloride 111.0 H Carbon Dioxide BUN 20 H Creatinine Glucose 130 H POC Glucose Hemoglobin A1c Lactic Acid Calcium 7.8 L Phosphorus Magnesium 1.60 L Iron TIBC AST ALT Troponin T C-Reactive Protein Total Protein Albumin Triglycerides LDL Cholesterol Direct HDL Cholesterol Urine WBC (Auto) Vancomycin Trough Salicylates Acetaminophen % CD3 Cells % CD19 Cells Absolute CD19 Count Miscellaneous Test Crossmatch 09/05/18 09/05/18 09/05/18 12:15 17:24 23:24 WBC RBC Hgb Hct RDW Plt Count Lymph % (Auto) [place] % (Auto) Lymph # [place] # Seg Neutrophils % Seg Neuts % (Manual) Lymphocytes % (Manual) Nucleated RBC % Seg Neutrophils # Seg Neutrophils # Man Lymphocytes # (Manual) D-Dimer POC ABG pH POC ABG pCO2 POC ABG pO2 VBG pH Sodium Potassium Chloride Carbon Dioxide BUN Creatinine Glucose POC Glucose 143 H 116 H 116 H Hemoglobin A1c Lactic Acid Calcium Phosphorus Magnesium Iron TIBC AST ALT Troponin T C-Reactive Protein Total Protein Albumin Triglycerides LDL Cholesterol Direct HDL Cholesterol Urine WBC (Auto) Vancomycin Trough Salicylates Acetaminophen % CD3 Cells % CD19 Cells Absolute CD19 Count Miscellaneous Test Crossmatch 09/06/18 09/06/18 09/06/18 03:33 04:20 04:20 WBC RBC 2.45 L Hgb 7.4 L Hct 23.0 L RDW 18.1 H Plt Count 99 L Lymph % (Auto) [place] % (Auto) Lymph # 1.0 L [place] # Seg Neutrophils % 78.0 H Seg Neuts % (Manual) Lymphocytes % (Manual) Nucleated RBC % Seg Neutrophils # Seg Neutrophils # Man Lymphocytes # (Manual) D-Dimer POC ABG pH 7.303 L POC ABG pCO2 49.2 H POC ABG pO2 73 L VBG pH Sodium Potassium Chloride 109.3 H Carbon Dioxide BUN 24 H Creatinine Glucose 108 H POC Glucose Hemoglobin A1c Lactic Acid Calcium 8.1 L Phosphorus Magnesium Iron TIBC AST ALT Troponin T C-Reactive Protein Total Protein Albumin Triglycerides LDL Cholesterol Direct HDL Cholesterol Urine WBC (Auto) Vancomycin Trough Salicylates Acetaminophen % CD3 Cells % CD19 Cells Absolute CD19 Count Miscellaneous Test Crossmatch 09/06/18 09/06/18 09/06/18 04:55 11:29 14:40 WBC RBC Hgb Hct RDW Plt Count Lymph % (Auto) [place] % (Auto) Lymph # [place] # Seg Neutrophils % Seg Neuts % (Manual) Lymphocytes % (Manual) Nucleated RBC % Seg Neutrophils # Seg Neutrophils # Man Lymphocytes # (Manual) D-Dimer POC ABG pH POC ABG pCO2 POC ABG pO2 VBG pH Sodium Potassium Chloride Carbon Dioxide BUN Creatinine Glucose POC Glucose 124 H 149 H Hemoglobin A1c Lactic Acid Calcium Phosphorus Magnesium Iron TIBC AST ALT Troponin T C-Reactive Protein Total Protein Albumin Triglycerides LDL Cholesterol Direct HDL Cholesterol Urine WBC (Auto) Vancomycin Trough 28.6 H Salicylates Acetaminophen % CD3 Cells % CD19 Cells Absolute CD19 Count Miscellaneous Test Crossmatch 09/06/18 09/06/18 09/07/18 17:43 20:08 00:39 WBC RBC Hgb Hct RDW Plt Count Lymph % (Auto) [place] % (Auto) Lymph # [place] # Seg Neutrophils % Seg Neuts % (Manual) Lymphocytes % (Manual) Nucleated RBC % Seg Neutrophils # Seg Neutrophils # Man Lymphocytes # (Manual) D-Dimer POC ABG pH POC ABG pCO2 POC ABG pO2 VBG pH Sodium Potassium Chloride Carbon Dioxide BUN Creatinine Glucose POC Glucose 138 H 118 H 131 H Hemoglobin A1c Lactic Acid Calcium Phosphorus Magnesium Iron TIBC AST ALT Troponin T C-Reactive Protein Total Protein Albumin Triglycerides LDL Cholesterol Direct HDL Cholesterol Urine WBC (Auto) Vancomycin Trough Salicylates Acetaminophen % CD3 Cells % CD19 Cells Absolute CD19 Count Miscellaneous Test Crossmatch 09/07/18 09/07/18 09/07/18 05:40 05:40 12:03 WBC RBC 2.40 L Hgb 7.3 L Hct 22.5 L RDW 17.8 H Plt Count 92 L Lymph % (Auto) [place] % (Auto) Lymph # [place] # Seg Neutrophils % Seg Neuts % (Manual) 80.0 H Lymphocytes % (Manual) Nucleated RBC % 1.0 H Seg Neutrophils # Seg Neutrophils # Man Lymphocytes # (Manual) 0.8 L D-Dimer POC ABG pH POC ABG pCO2 POC ABG pO2 VBG pH Sodium Potassium Chloride 109.8 H Carbon Dioxide BUN 26 H Creatinine Glucose 118 H POC Glucose 145 H Hemoglobin A1c Lactic Acid Calcium 8.0 L Phosphorus Magnesium Iron 26 L TIBC 150 L AST 88 H ALT Troponin T C-Reactive Protein Total Protein 5.8 L Albumin 2.1 L Triglycerides LDL Cholesterol Direct HDL Cholesterol Urine WBC (Auto) Vancomycin Trough Salicylates Acetaminophen % CD3 Cells % CD19 Cells Absolute CD19 Count Miscellaneous Test Crossmatch 09/07/18 09/07/18 09/08/18 17:39 23:21 05:48 WBC RBC Hgb Hct RDW Plt Count Lymph % (Auto) [place] % (Auto) Lymph # [place] # Seg Neutrophils % Seg Neuts % (Manual) Lymphocytes % (Manual) Nucleated RBC % Seg Neutrophils # Seg Neutrophils # Man Lymphocytes # (Manual) D-Dimer POC ABG pH POC ABG pCO2 POC ABG pO2 VBG pH Sodium Potassium Chloride Carbon Dioxide BUN Creatinine Glucose POC Glucose 128 H 136 H 129 H Hemoglobin A1c Lactic Acid Calcium Phosphorus Magnesium Iron TIBC AST ALT Troponin T C-Reactive Protein Total Protein Albumin Triglycerides LDL Cholesterol Direct HDL Cholesterol Urine WBC (Auto) Vancomycin Trough Salicylates Acetaminophen % CD3 Cells % CD19 Cells Absolute CD19 Count Miscellaneous Test Crossmatch 09/08/18 09/08/18 09/08/18 06:17 10:06 10:42 WBC RBC Hgb Hct RDW Plt Count Lymph % (Auto) [place] % (Auto) Lymph # [place] # Seg Neutrophils % Seg Neuts % (Manual) Lymphocytes % (Manual) Nucleated RBC % Seg Neutrophils # Seg Neutrophils # Man Lymphocytes # (Manual) D-Dimer POC ABG pH 7.292 L 7.276 L POC ABG pCO2 56.9 H 65.1 H POC ABG pO2 VBG pH Sodium 146 H Potassium Chloride 109.1 H Carbon Dioxide BUN 28 H Creatinine Glucose 165 H POC Glucose Hemoglobin A1c Lactic Acid Calcium Phosphorus Magnesium Iron TIBC AST ALT Troponin T C-Reactive Protein Total Protein Albumin Triglycerides LDL Cholesterol Direct HDL Cholesterol Urine WBC (Auto) Vancomycin Trough Salicylates Acetaminophen % CD3 Cells % CD19 Cells Absolute CD19 Count Miscellaneous Test Crossmatch 09/08/18 09/08/18 09/08/18 11:06 18:07 23:20 WBC RBC Hgb Hct RDW Plt Count Lymph % (Auto) [place] % (Auto) Lymph # [place] # Seg Neutrophils % Seg Neuts % (Manual) Lymphocytes % (Manual) Nucleated RBC % Seg Neutrophils # Seg Neutrophils # Man Lymphocytes # (Manual) D-Dimer POC ABG pH POC ABG pCO2 POC ABG pO2 VBG pH Sodium Potassium Chloride Carbon Dioxide BUN Creatinine Glucose POC Glucose 165 H 140 H 124 H Hemoglobin A1c Lactic Acid Calcium Phosphorus Magnesium Iron TIBC AST ALT Troponin T C-Reactive Protein Total Protein Albumin Triglycerides LDL Cholesterol Direct HDL Cholesterol Urine WBC (Auto) Vancomycin Trough Salicylates Acetaminophen % CD3 Cells % CD19 Cells Absolute CD19 Count Miscellaneous Test Crossmatch 09/09/18 09/09/18 09/09/18 05:04 08:39 08:39 WBC RBC 2.60 L Hgb 8.1 L Hct 24.6 L RDW 17.9 H Plt Count Lymph % (Auto) [place] % (Auto) Lymph # [place] # Seg Neutrophils % Seg Neuts % (Manual) Lymphocytes % (Manual) Nucleated RBC % Seg Neutrophils # Seg Neutrophils # Man Lymphocytes # (Manual) D-Dimer POC ABG pH POC ABG pCO2 POC ABG pO2 VBG pH Sodium Potassium Chloride Carbon Dioxide BUN 32 H Creatinine Glucose 150 H POC Glucose 168 H Hemoglobin A1c Lactic Acid Calcium Phosphorus Magnesium Iron TIBC AST ALT Troponin T C-Reactive Protein Total Protein Albumin Triglycerides LDL Cholesterol Direct HDL Cholesterol Urine WBC (Auto) Vancomycin Trough Salicylates Acetaminophen % CD3 Cells % CD19 Cells Absolute CD19 Count Miscellaneous Test Crossmatch 09/09/18 09/10/18 09/10/18 12:41 04:20 04:20 WBC RBC 2.49 L Hgb 7.7 L Hct 23.4 L RDW 18.0 H Plt Count Lymph % (Auto) 8.2 L [place] % (Auto) Lymph # 0.7 L [place] # Seg Neutrophils % 87.7 H Seg Neuts % (Manual) Lymphocytes % (Manual) Nucleated RBC % Seg Neutrophils # Seg Neutrophils # Man Lymphocytes # (Manual) D-Dimer POC ABG pH POC ABG pCO2 POC ABG pO2 VBG pH Sodium Potassium Chloride Carbon Dioxide 31 H BUN 39 H Creatinine Glucose 183 H POC Glucose 150 H Hemoglobin A1c Lactic Acid Calcium Phosphorus Magnesium Iron TIBC AST 85 H ALT 58 H Troponin T C-Reactive Protein Total Protein Albumin 2.5 L Triglycerides LDL Cholesterol Direct HDL Cholesterol Urine WBC (Auto) Vancomycin Trough Salicylates Acetaminophen % CD3 Cells % CD19 Cells Absolute CD19 Count Miscellaneous Test Crossmatch 09/10/18 09/10/18 09/10/18 04:39 05:06 11:17 WBC RBC Hgb Hct RDW Plt Count Lymph % (Auto) [place] % (Auto) Lymph # [place] # Seg Neutrophils % Seg Neuts % (Manual) Lymphocytes % (Manual) Nucleated RBC % Seg Neutrophils # Seg Neutrophils # Man Lymphocytes # (Manual) D-Dimer POC ABG pH POC ABG pCO2 51.4 H POC ABG pO2 VBG pH Sodium Potassium Chloride Carbon Dioxide BUN Creatinine Glucose POC Glucose 185 H 159 H Hemoglobin A1c Lactic Acid Calcium Phosphorus Magnesium Iron TIBC AST ALT Troponin T C-Reactive Protein Total Protein Albumin Triglycerides LDL Cholesterol Direct HDL Cholesterol Urine WBC (Auto) Vancomycin Trough Salicylates Acetaminophen % CD3 Cells % CD19 Cells Absolute CD19 Count Miscellaneous Test Crossmatch 09/10/18 09/11/18 09/11/18 16:57 00:17 01:10 WBC RBC Hgb Hct RDW Plt Count Lymph % (Auto) [place] % (Auto) Lymph # [place] # Seg Neutrophils % Seg Neuts % (Manual) Lymphocytes % (Manual) Nucleated RBC % Seg Neutrophils # Seg Neutrophils # Man Lymphocytes # (Manual) D-Dimer POC ABG pH POC ABG pCO2 POC ABG pO2 VBG pH Sodium Potassium Chloride Carbon Dioxide 34 H BUN 44 H Creatinine Glucose 154 H POC Glucose 177 H 163 H Hemoglobin A1c Lactic Acid Calcium Phosphorus Magnesium Iron TIBC AST 86 H ALT 68 H Troponin T C-Reactive Protein Total Protein Albumin 2.6 L Triglycerides LDL Cholesterol Direct HDL Cholesterol Urine WBC (Auto) Vancomycin Trough Salicylates Acetaminophen % CD3 Cells % CD19 Cells Absolute CD19 Count Miscellaneous Test Crossmatch 09/11/18 09/11/18 09/11/18 01:10 06:03 09:00 WBC 13.7 H RBC 2.61 L Hgb 8.0 L Hct 24.6 L RDW 19.1 H Plt Count Lymph % (Auto) 6.1 L [place] % (Auto) Lymph # 0.8 L [place] # Seg Neutrophils % 87.7 H Seg Neuts % (Manual) Lymphocytes % (Manual) Nucleated RBC % Seg Neutrophils # 12.0 H Seg Neutrophils # Man Lymphocytes # (Manual) D-Dimer POC ABG pH POC ABG pCO2 POC ABG pO2 VBG pH Sodium Potassium Chloride Carbon Dioxide 33 H BUN 45 H Creatinine Glucose 147 H POC Glucose 180 H Hemoglobin A1c Lactic Acid Calcium Phosphorus Magnesium Iron TIBC AST ALT Troponin T C-Reactive Protein Total Protein Albumin Triglycerides LDL Cholesterol Direct HDL Cholesterol Urine WBC (Auto) Vancomycin Trough Salicylates Acetaminophen % CD3 Cells % CD19 Cells Absolute CD19 Count Miscellaneous Test Crossmatch 09/11/18 09/11/18 09/11/18 11:14 11:31 17:11 WBC RBC Hgb Hct RDW Plt Count Lymph % (Auto) [place] % (Auto) Lymph # [place] # Seg Neutrophils % Seg Neuts % (Manual) Lymphocytes % (Manual) Nucleated RBC % Seg Neutrophils # Seg Neutrophils # Man Lymphocytes # (Manual) D-Dimer POC ABG pH 7.498 H POC ABG pCO2 46.3 H POC ABG pO2 VBG pH Sodium Potassium Chloride Carbon Dioxide BUN Creatinine Glucose POC Glucose 163 H 202 H Hemoglobin A1c Lactic Acid Calcium Phosphorus Magnesium Iron TIBC AST ALT Troponin T C-Reactive Protein Total Protein Albumin Triglycerides LDL Cholesterol Direct HDL Cholesterol Urine WBC (Auto) Vancomycin Trough Salicylates Acetaminophen % CD3 Cells % CD19 Cells Absolute CD19 Count Miscellaneous Test Crossmatch 09/11/18 09/12/18 09/12/18 23:49 03:16 05:30 WBC RBC 2.36 L Hgb 7.3 L Hct 22.3 L RDW 18.4 H Plt Count Lymph % (Auto) 13.0 L [place] % (Auto) 9.3 H Lymph # 1.1 L [place] # Seg Neutrophils % 77.5 H Seg Neuts % (Manual) Lymphocytes % (Manual) Nucleated RBC % Seg Neutrophils # Seg Neutrophils # Man Lymphocytes # (Manual) D-Dimer POC ABG pH 7.517 H POC ABG pCO2 48.8 H POC ABG pO2 VBG pH Sodium Potassium Chloride Carbon Dioxide BUN Creatinine Glucose POC Glucose 163 H Hemoglobin A1c Lactic Acid Calcium Phosphorus Magnesium Iron TIBC AST ALT Troponin T C-Reactive Protein Total Protein Albumin Triglycerides LDL Cholesterol Direct HDL Cholesterol Urine WBC (Auto) Vancomycin Trough Salicylates Acetaminophen % CD3 Cells % CD19 Cells Absolute CD19 Count Miscellaneous Test Crossmatch 09/12/18 09/12/18 09/12/18 05:30 06:07 11:36 WBC RBC Hgb Hct RDW Plt Count Lymph % (Auto) [place] % (Auto) Lymph # [place] # Seg Neutrophils % Seg Neuts % (Manual) Lymphocytes % (Manual) Nucleated RBC % Seg Neutrophils # Seg Neutrophils # Man Lymphocytes # (Manual) D-Dimer POC ABG pH POC ABG pCO2 POC ABG pO2 VBG pH Sodium 148 H Potassium Chloride Carbon Dioxide 36 H BUN 46 H Creatinine Glucose 152 H POC Glucose 172 H 212 H Hemoglobin A1c Lactic Acid Calcium Phosphorus Magnesium Iron TIBC AST ALT Troponin T C-Reactive Protein Total Protein Albumin Triglycerides LDL Cholesterol Direct HDL Cholesterol Urine WBC (Auto) Vancomycin Trough Salicylates Acetaminophen % CD3 Cells % CD19 Cells Absolute CD19 Count Miscellaneous Test Crossmatch 09/12/18 09/12/18 09/13/18 18:02 23:19 03:55 WBC RBC Hgb Hct RDW Plt Count Lymph % (Auto) [place] % (Auto) Lymph # [place] # Seg Neutrophils % Seg Neuts % (Manual) Lymphocytes % (Manual) Nucleated RBC % Seg Neutrophils # Seg Neutrophils # Man Lymphocytes # (Manual) D-Dimer POC ABG pH 7.520 H POC ABG pCO2 48.0 H POC ABG pO2 58 L VBG pH Sodium Potassium Chloride Carbon Dioxide BUN Creatinine Glucose POC Glucose 142 H 161 H Hemoglobin A1c Lactic Acid Calcium Phosphorus Magnesium Iron TIBC AST ALT Troponin T C-Reactive Protein Total Protein Albumin Triglycerides LDL Cholesterol Direct HDL Cholesterol Urine WBC (Auto) Vancomycin Trough Salicylates Acetaminophen % CD3 Cells % CD19 Cells Absolute CD19 Count Miscellaneous Test Crossmatch 09/13/18 09/13/18 09/13/18 05:11 05:25 05:25 WBC RBC 2.38 L Hgb 7.6 L Hct 22.4 L RDW 18.6 H Plt Count Lymph % (Auto) [place] % (Auto) Lymph # [place] # Seg Neutrophils % Seg Neuts % (Manual) Lymphocytes % (Manual) Nucleated RBC % Seg Neutrophils # Seg Neutrophils # Man Lymphocytes # (Manual) D-Dimer POC ABG pH POC ABG pCO2 POC ABG pO2 VBG pH Sodium Potassium 3.2 L Chloride 97.5 L Carbon Dioxide 38 H BUN 38 H Creatinine 0.6 L Glucose 120 H POC Glucose 139 H Hemoglobin A1c Lactic Acid Calcium 8.1 L Phosphorus Magnesium Iron TIBC AST 120 H ALT 124 H Troponin T C-Reactive Protein Total Protein 5.9 L Albumin 2.6 L Triglycerides LDL Cholesterol Direct HDL Cholesterol Urine WBC (Auto) Vancomycin Trough Salicylates Acetaminophen % CD3 Cells % CD19 Cells Absolute CD19 Count Miscellaneous Test Crossmatch 09/13/18 09/13/18 09/13/18 11:31 17:46 23:23 WBC RBC Hgb Hct RDW Plt Count Lymph % (Auto) [place] % (Auto) Lymph # [place] # Seg Neutrophils % Seg Neuts % (Manual) Lymphocytes % (Manual) Nucleated RBC % Seg Neutrophils # Seg Neutrophils # Man Lymphocytes # (Manual) D-Dimer POC ABG pH POC ABG pCO2 POC ABG pO2 VBG pH Sodium Potassium Chloride Carbon Dioxide BUN Creatinine Glucose POC Glucose 160 H 145 H 135 H Hemoglobin A1c Lactic Acid Calcium Phosphorus Magnesium Iron TIBC AST ALT Troponin T C-Reactive Protein Total Protein Albumin Triglycerides LDL Cholesterol Direct HDL Cholesterol Urine WBC (Auto) Vancomycin Trough Salicylates Acetaminophen % CD3 Cells % CD19 Cells Absolute CD19 Count Miscellaneous Test Crossmatch 09/14/18 09/14/1809/14/19 03:56 04:55 04:55 WBC RBC 2.28 L Hgb 7.1 L Hct 21.4 L RDW 18.2 H Plt Count Lymph % (Auto) [place] % (Auto) Lymph # [place] # Seg Neutrophils % 76.4 H Seg Neuts % (Manual) Lymphocytes % (Manual) Nucleated RBC % Seg Neutrophils # Seg Neutrophils # Man Lymphocytes # (Manual) D-Dimer POC ABG pH 7.503 H POC ABG pCO2 49.1 H POC ABG pO2 79 L VBG pH Sodium Potassium Chloride 97.7 L Carbon Dioxide 35 H BUN 32 H Creatinine 0.6 L Glucose 114 H POC Glucose Hemoglobin A1c Lactic Acid Calcium Phosphorus Magnesium Iron TIBC AST 60 H ALT 88 H Troponin T C-Reactive Protein Total Protein 5.6 L Albumin 2.2 L Triglycerides LDL Cholesterol Direct HDL Cholesterol Urine WBC (Auto) Vancomycin Trough Salicylates Acetaminophen % CD3 Cells % CD19 Cells Absolute CD19 Count Miscellaneous Test Crossmatch 09/14/18 05:14 WBC RBC Hgb Hct RDW Plt Count Lymph % (Auto) [place] % (Auto) Lymph # [place] # Seg Neutrophils % Seg Neuts % (Manual) Lymphocytes % (Manual) Nucleated RBC % Seg Neutrophils # Seg Neutrophils # Man Lymphocytes # (Manual) D-Dimer POC ABG pH POC ABG pCO2 POC ABG pO2 VBG pH Sodium Potassium Chloride Carbon Dioxide BUN Creatinine Glucose POC Glucose 115 H Hemoglobin A1c Lactic Acid Calcium Phosphorus Magnesium Iron TIBC AST ALT Troponin T C-Reactive Protein Total Protein Albumin Triglycerides LDL Cholesterol Direct HDL Cholesterol Urine WBC (Auto) Vancomycin Trough Salicylates Acetaminophen % CD3 Cells % CD19 Cells Absolute CD19 Count Miscellaneous Test Crossmatch Allied health notes reviewed: RT (Increase FIO2 to 50% , decrease set rate to 14)
--- NOTE | 2018-09-14 11:45 | Progress Note ---
Assessment and Plan /Acute hypoxic hypercapnic respiratory failure; extubated 08/29/18 Re Intubated 09/02/18, vent dependent Patient may need trach and PEG - planned for today Status post bronchoscopy, BAL negative cont nebulizers, pulmonary following /Thrombocytopenia: Platelet count is Stable Lovenox changed to Arixtra /Anemia: s/p transfusion[3 PRBC] hemoglobin 7.1 today Stool for occult blood x 2 negative, hematology following will transfuse additional unit -Recent EGD at [facility] 08/08/2018 revealing irregular Z line, gastritis and small hiatal hernia - Recent colonoscopy at [facility] 08/08/2018 revealing sigmoid polyp, transverse colon polyps, inflamed hemorrhoids and diverticulosis /Febrile illness; resolved, likely from PNA/sepsis /Hypomagnesemia; Hypernatremia; resolved, /Bileral lower extremity DVT; anticoagulation with arixtra CTA chest negative for PE /Sepsis; due to aspiration pneumonia ; s/p micafungin, meropenem and Vanco per ID Monitor off antibiotics /Hypertension; continue current antihypertensives /Severe malnutrition/hypoalbuminemia; Dietitian following, On TF /Acute kidney injury; probably secondary to ATN, Resolved, /Acute systolic congestive heart failure; EF 25-30%, Cardio following, monitor ins/os Previous echo 03/30/2016 at [facility] revealed normal LVEF Previous stress MPI 03/29/2016 at [facility] revealed no ischemia /Elevated Transaminases; resolved /-DVT prophylaxis; on full dose arixtra, on hold now for possible trach/peg tomorrow Consults and recommendations noted and appreciated Plan of care reviewed with the patient's nurse The high probability of a clinically significant, sudden or life threatening deterioration of the [respiratory, cardiology, ID, renal and metabolic] system(s) required my full and direct attention, intervention and personal management. The aggregate critical care time was [32] minutes. This time is in addition to time spent performing reported procedures but includes the following: [x] Data Review and interpretation [x] Patient assessment and monitoring of vital signs [x] Documentation [x] Medication orders and management Plan of care is reviewed with the patient's nurse Brief History: 68-year-old female patient with history of COPD, arthritis s/p C-spine and lumbar spine surgery, Chronic pain syndrome who was found unconscious in her feces and vomitus, patients family was in [place] for a golf tournament. Patient was brought to the emergency room noted to be severely hypoxic and tachypneic, promptly intubated placed on ventilatory support and admitted to ICU patient was also noted to have possible aspiration pneumonia, completed treatment recommended by ID .currently monitoring of antibiotics . patient also had acute gastroenteritis acute kidney injury nonspecific elevation of troponins as well as septic shock evaluated by multiple specialties successfully weaned and extubated on 08/29/2018 however patient again went into acute respiratory fa ilure requiring reintubation on 09/02/2018, Since then patient is vent dependent, plan for trach and PEG and placement. She is also being treated for acute b/l DVT diagnosed following admission while she was on DVT Px. s/p 3units of PRBC transfusion for anemia, no acute source of active bleeding so far. Hospitalist Physical General appearance: Present: no acute distress, well-nourished, obese, other (on vent) - EENT Eyes: Present: PERRL, EOM intact - Neck Neck: Present: supple, normal ROM - Respiratory Respiratory effort: normal Respiratory: bilateral: diminished, rhonchi, negative: rales, wheezing - Cardiovascular Rhythm: regular Heart Sounds: Present: S1 & S2 - Extremities Extremities: no ischemia, No edema - Abdominal General gastrointestinal: soft, non-tender, non-distended, normal bowel sounds - Integumentary Integumentary: Present: clear, warm - Psychiatric Psychiatric: cooperative, other (on vent) - Neurologic Neurologic: other (intubated on vent) Subjective Date of service: 09/14/18 Principal diagnosis: anemia Interval history: Patient seen and examined medical records reviewed Patient remains intubated on ventilator support Alert and awake not in acute distress Vital signs noted, no acute issue overnight Patient's is at the bedside - updated Objective - Constitutional Vitals: Vital Signs - 12hr 09/14/18 09/14/18 09/14/18 00:00 01:00 02:00 Temperature 100.5 F H Pulse Rate 77 80 76 Pulse Rate [ Anterior Bilateral Throughout] Pulse Rate [ 73 From Monitor] Respiratory 14 15 19 Rate Respiratory Rate [Anterior Bilateral Throughout] Blood Pressure 92/42 137/52 127/51 O2 Sat by Pulse 95 93 94 Oximetry 09/14/18 09/14/18 09/14/18 03:00 03:52 04:00 Temperature 101.5 F H Pulse Rate 79 79 77 Pulse Rate [ Anterior Bilateral Throughout] Pulse Rate [ 77 From Monitor] Respiratory 16 17 Rate Respiratory Rate [Anterior Bilateral Throughout] Blood Pressure 128/58 128/58 O2 Sat by Pulse 93 96 92 Oximetry 09/14/18 09/14/18 09/14/18 04:01 05:01 06:01 Temperature Pulse Rate 77 75 75 Pulse Rate [ Anterior Bilateral Throughout] Pulse Rate [ From Monitor] Respiratory 14 14 15 Rate Respiratory Rate [Anterior Bilateral Throughout] Blood Pressure 120/52 109/50 O2 Sat by Pulse 96 95 94 Oximetry 09/14/18 09/14/18 09/14/18 06:13 07:01 07:37 Temperature Pulse Rate 74 75 71 Pulse Rate [ 77 Anterior Bilateral Throughout] Pulse Rate [ From Monitor] Respiratory 15 Rate Respiratory 15 Rate [Anterior Bilateral Throughout] Blood Pressure 109/50 123/42 123/42 O2 Sat by Pulse 96 96 Oximetry 09/14/18 09/14/18 09/14/18 08:00 08:59 09:01 Temperature 99.7 F H Pulse Rate 77 75 Pulse Rate [ 71 Anterior Bilateral Throughout] Pulse Rate [ 76 From Monitor] Respiratory 15 15 Rate Respiratory 13 Rate [Anterior Bilateral Throughout] Blood Pressure 112/43 129/72 O2 Sat by Pulse 99 93 Oximetry 09/14/18 10:00 Temperature Pulse Rate 77 Pulse Rate [ Anterior Bilateral Throughout] Pulse Rate [ From Monitor] Respiratory 16 Rate Respiratory Rate [Anterior Bilateral Throughout] Blood Pressure 134/81 O2 Sat by Pulse 90 Oximetry - Labs CBC & Chem 7: 09/15/18 04:10 09/15/18 04:10 Labs: Abnormal lab results 09/13/18 09/13/18 09/13/18 Range/Units 11:31 17:46 23:23 RBC (3.65-5.03) M/mm3 Hgb (10.1-14.3) gm/dl Hct (30.3-42.9) % RDW (13.2-15.2) % Seg Neutrophils % (40.0-70.0) % POC ABG pH (7.35-7.45) POC ABG pCO2 (35-45) POC ABG pO2 (80-105) Chloride (98-107) mmol/L Carbon Dioxide (22-30) mmol/L BUN (7-17) mg/dL Creatinine (0.7-1.2) mg/dL Glucose (65-100) mg/dL POC Glucose 160 H 145 H 135 H (70-105) AST (5-40) units/L ALT (7-56) units/L Total Protein (6.3-8.2) g/dL Albumin (3.9-5) g/dL 09/14/18 09/14/18 09/14/18 Range/Units 03:56 04:55 04:55 RBC 2.28 L (3.65-5.03) M/mm3 Hgb 7.1 L (10.1-14.3) gm/dl Hct 21.4 L (30.3-42.9) % RDW 18.2 H (13.2-15.2) % Seg Neutrophils % 76.4 H (40.0-70.0) % POC ABG pH 7.503 H (7.35-7.45) POC ABG pCO2 49.1 H (35-45) POC ABG pO2 79 L (80-105) Chloride 97.7 L (98-107) mmol/L Carbon Dioxide 35 H (22-30) mmol/L BUN 32 H (7-17) mg/dL Creatinine 0.6 L (0.7-1.2) mg/dL Glucose 114 H (65-100) mg/dL POC Glucose (70-105) AST 60 H (5-40) units/L ALT 88 H (7-56) units/L Total Protein 5.6 L (6.3-8.2) g/dL Albumin 2.2 L (3.9-5) g/dL 09/14/18 Range/Units 05:14 RBC (3.65-5.03) M/mm3 Hgb (10.1-14.3) gm/dl Hct (30.3-42.9) % RDW (13.2-15.2) % Seg Neutrophils % (40.0-70.0) % POC ABG pH (7.35-7.45) POC ABG pCO2 (35-45) POC ABG pO2 (80-105) Chloride (98-107) mmol/L Carbon Dioxide (22-30) mmol/L BUN (7-17) mg/dL Creatinine (0.7-1.2) mg/dL Glucose (65-100) mg/dL POC Glucose 115 H (70-105) AST (5-40) units/L ALT (7-56) units/L Total Protein (6.3-8.2) g/dL Albumin (3.9-5) g/dL
[2018-09-14] MEDS ORDERED: NACL 0.9% 500 ML 500 ML IV ONE (12:00)
--- NOTE | 2018-09-14 12:30 | Progress Note ---
Assessment and Plan Cultures: 08/15/2018 blood culture: Camryn glabrata 1 of 4 08/15/2018 sputum culture: MSSA and Escherichia coli, wade susceptible 08/18/2018 blood culture: no growth 08/18/2018 urine culture: neg 08/22/2018 blood culture: no growth 08/25/2018 blood culture: no growth 09/02/2018 BAL cultures: resp almaz. Fungal and AFB pending: No growth thus far. 09/04/2018 blood culture: no growth thus far 09/04/2018 trach aspirate: no growth Fungitell was high (consistent with Candidemia), Aspergillus galactomannan negative. 09/13/2018 blood culture: in process A/P: 68-year-old female with COPD, arthritis, history of multiple spinal surgeries was brought to the emergency room on 08/15/2018 with altered mental status: 1) Sepsis with septic shock: resolved. New fever today. Etiology unclear. Blood cultures obtained. Has indwelling PICC and Dodge. Urine does not appear cloudy, draining well. 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 Patient without any hi story of indwelling PICC line, TPN or immunocompromised status. reported severe explosive diarrhea, N/V before admission after taken 4 days of amoxicillin for dental implant on 07/29/2018 and had a EGD / colonoscopy on 08/08/[address] at [place] [address] Alcantara. I reviewed report - mild chronic gastritis, focal intestinal metaplasia, squamocolumnar mucosa with mild reflux-type changes, and tubular adenoma. -s/p fluconazole 800 mg loading dose then micafungin, s/p amphotericin D6 on 08/26 -serum Crypto negative. -08/15/2018 blood culture: Camryn glabrata -08/18/2018 blood culture: no growth -CTA chest showed limited study due to respiratory motion artifact. No evidence of pulmonary embolism. Abnormal bilateral lung consolidation which may represent pulmonary edema or pneumonia. Mild cardiomegaly. Indeterminant mediastinal lymph nodes. -CT abdomen showed extensive bilateral lower lobe pulmonary infiltrates, rectal tube and Dodge catheter noted. NG tube at gastric antrum. Left hip pro sthesis Extensive degenerative changes noted lumbar spine -TTE EF 25-30% no vegetations -HIV neg/ CD4 1004 -reviewed CT chest abd done 01/05/2019 showed cholecystectomy, mild fatty liver, postoperative changes of lumbar laminectomy with non specific fluid, 9 mm LLL pulmonary nodule which was compared to previous CT and was stable. -CRP 10-->5 3) Acute renal failure: On admission: improved. 4) Acute respiratory failure: Back on the vent. Recently completed pneumonia treatment. WBC up and low grade fever. Underwent bronch + BAL on 09/02/2018. Cultures with no growth thus far. On abx. CTA chest 09/06/2018 negative for PE, bilateral air space disease, no air bronchograms as such. High oxygen requirements, ?ARDS v/s fluid overload. 5) Right maxillary sinusitis: received empiric abx. 6) Acute encephalopathy: Likely multifactorial. CT head unremarkable for acute intracranial process. 7) Cardiomyopathy, LVEF 25-30% this admission. 8) H/O left hip prosthesis ? XR no effusion. CT with no enhancement 9) Left leg DVT: on anticoagulation. Hematology following. 10) Mild transaminitis: monitor for now. RUQ US unremarkable. Recs: due to fever, will start empiric IV Zosyn follow up blood cultures etiology unclear, no obvious new infection. Will check procalcitonin D/W Dr. Grossman. Brando Pradhan MD [facility] C: [phone] O: [phone] F: [phone] Subjective Date of service: 09/14/18 Principal diagnosis: anemia Interval history: Febrile, 101.5F at 4 am today. Otherwise she remains stable. On the vent. Set tings unchanged. Tolerating tube feeds. Awake, denies pain. No diarrhea as such, discussed with RN. Objective - Exam Narrative Exam: Physical Exam: Constitutional: awake, intubated, no distress Head, Ears, Nose: Normocephalic, atraumatic. External ears, nose normal Eyes: Conjunctivae/corneas clear. No icterus. No ptosis. Neck: Supple, no meningeal signs Oral: intubated. Cardiovascular: S1, S2 normal. Respiratory: coarse rhonchi b/l, equal bilaterally GI: Soft, non tender, bowel sounds normal. No peritoneal signs. Musculoskeletal: pedal edema bilaterally 2+. L>R Skin: No rash or abscess Hem/Lymphatic: No palpable cervical or supraclavicular nodes. No lymphangitis Psych: calm, no agitation Neurological: awake, intubated, obeying basic commands - Constitutional Vitals: Vital Signs Temp Pulse Resp BP Pulse Ox 99.7 F H 76 16 139/55 93 09/14/18 08:00 09/14/18 12:02 09/14/18 10:00 09/14/18 12:02 09/14/18 12:02 Temperature -Last 24 Hours Temperature 99.7 F Temperature 101.5 F Temperature 100.5 F Temperature 99.7 F Temperature 99.2 F - Labs CBC & Chem 7: 09/14/18 04:55 09/14/18 04:55 Labs: Abnormal lab results 09/13/18 09/13/18 09/14/18 Range/Units 17:46 23:23 03:56 RBC (3.65-5.03) M/mm3 Hgb (10.1-14.3) gm/dl Hct (30.3-42.9) % RDW (13.2-15.2) % Seg Neutrophils % (40.0-70.0) % POC ABG pH 7.503 H (7.35-7.45) POC ABG pCO2 49.1 H (35-45) POC ABG pO2 79 L (80-105) Chloride (98-107) mmol/L Carbon Dioxide (22-30) mmol/L BUN (7-17) mg/dL Creatinine (0.7-1.2) mg/dL Glucose (65-100) mg/dL POC Glucose 145 H 135 H (70-105) AST (5-40) units/L ALT (7-56) units/L Total Protein (6.3-8.2) g/dL Albumin (3.9-5) g/dL 09/14/18 09/14/18 09/14/18 Range/Units 04:55 04:55 05:14 RBC 2.28 L (3.65-5.03) M/mm3 Hgb 7.1 L (10.1-14.3) gm/dl Hct 21.4 L (30.3-42.9) % RDW 18.2 H (13.2-15.2) % Seg Neutrophils % 76.4 H (40.0-70.0) % POC ABG pH (7.35-7.45) POC ABG pCO2 (35-45) POC ABG pO2 (80-105) Chloride 97.7 L (98-107) mmol/L Carbon Dioxide 35 H (22-30) mmol/L BUN 32 H (7-17) mg/dL Creatinine 0.6 L (0.7-1.2) mg/dL Glucose 114 H (65-100) mg/dL POC Glucose 115 H (70-105) AST 60 H (5-40) units/L ALT 88 H (7-56) units/L Total Protein 5.6 L (6.3-8.2) g/dL Albumin 2.2 L (3.9-5) g/dL
[2018-09-14] MEDS ORDERED: NACL 0.9% 1000 ML 1,000 ML ONE (13:46)
[2018-09-14] MEDS ORDERED: ZEMURON IV ONE ×2 (13:51→15:23)
[2018-09-14] MEDS ORDERED: DIPRIVAN 10 MG/ML IV ONE ×2 (13:51)
[2018-09-14] MEDS ORDERED: SUBLIMAZE ONE (13:51)
[2018-09-14] MEDS ORDERED: XYLOCAINE MPF 2% ONE (13:51)
[2018-09-14] MEDS: ZOSYN/NS 4.5GM/100ML 4.5 GM/100 ML VIAL IV SCH ×2 (14:32→19:36)
--- NOTE | 2018-09-14 14:33 | Anesthesia Consultation ---
Anesthesia Consult and Med Hx Date of service: 09/14/18 - Pulmonary Exam CTA: No (Intubated, for Trach) - Cardiac Exam Cardiac Exam: RRR - Pre-Operative Health Status ASA Pre-Surgery Classification: ASA4 Proposed Anesthetic Plan: MAC - Pre-Anesthesia Comment Pre-Anesthesia Comments: Chart reviewed. Brief History: 68-year-old female patient with history of COPD, arthritis s/p C-spine and lumbar spine surgery, Chronic pain syndrome who was found unconscious in her feces and vomitus, patients family was in [place] for a golf tournament. Patient was bro ught to the emergency room noted to be severely hypoxic and tachypneic, promptly intubated placed on ventilatory support and admitted to ICU patient was also noted to have possible aspiration pneumonia, completed treatment recommended by ID .currently monitoring of antibiotics . patient also had acute gastroenteritis acute kidney injury nonspecific elevation of troponins as well as septic shock evaluated by multiple specialties successfully weaned and extubated on 08/29/2018 however patient again went into acute respiratory failure requiring reintubation on 09/02/2018, Since then patient is vent dependent, plan for trach and PEG and placement. She is also being treated for acute b/l DVT diagnosed following admission while she was on DVT Px. s/p 3units of PRBC transfusion for anemia, no acute source of active bleeding so far. - Pulmonary COPD: Yes (Resp failure, prolonged intubation) - Cardiovascular System Hx Hypertension: Yes Hx Pacemaker: No Hx Internal Defibrillator: No - Endocrine Hx Renal Disease: Yes - Hematic Hx Anemia: Yes - Additional Comments Anesthesia Medical History Comments: Critically ill patient for Trach / PEG. Plan IV sedation.
--- NOTE | 2018-09-14 14:43 | Anesthesia Day of Surgery ---
Anesthesia Day of Surgery - Day of Surgery Patient H&P Reviewed: Yes Patient is NPO: Yes Beta Blockers: Yes Cardiac Clearance: Yes Pulmonary Clearance: Yes Austin's Test: N/A
[2018-09-14] MEDS ORDERED: AMIDATE IV ONE (15:08)
--- NOTE | 2018-09-14 15:58 | Procedure Note ---
Date of procedure: 09/14/18 Pre-op diagnosis: VDRF Post-op diagnosis: same Procedure: Percutaneous tracheostomy tube placement Findings: Time out performed. A neck roll was placed after anesthesia was given. The patient's neck was only slightly hyperextended as she did not have very much ROM of the neck. The neck was prepped and draped in the usual sterile fashion. Dr. Ramos performed fiberoptic bronchoscopy during the procedure. The skin approximately 2 fingerbreadths superior to the sternal notch was anesthetized with lidocaine. An incision was made using a 15 blade. A introducer needle was inserted into the trachea under direct visualization and wire passed towards the amando. The needle was removed and the trachea serially dilated. An 8F shiley tracheostomy tube was placed and balloon inflated. Bronchoscopy through tracheostomy showed clear trachea without bleeding. The tracheostomy tube was 5 cm above the amando. The ventilator was attached and inspiratory and expiratory volumes were satisfactory. Drain sponge was applied and the tracheostomy phlanges sutured to the skin using 2-0 prolene suture. The neck strap was applied. The patient tolerated the procedure well. All sharps were disposed of appropriately. Implants: 8F shiley tracheostomy Anesthesia: FREDO local Surgeon: REGLA YE Estimated blood loss: minimal Pathology: none Condition: stable Disposition: no change
--- NOTE | 2018-09-14 16:07 | Procedure Note ---
Date of procedure: 09/14/18 Pre-op diagnosis: Respiratory Failure Post-op diagnosis: same Procedure: Bronchoscopy Bronchoscopic Report Written Consent was on the chart. Pre-op Dx Respiratory Failure Post-op Dx same Procedure Bronchoscopy for tracheostomy placement (CPT 13584) Surgeon Jhon Agustin MD Surgeon performing tracheostomy Sophie Ye, Anesth MAC EBL min Specimen none Findings normal anatomy. No secretions. Complications none Disposition Stable in ICU Indications Procedure, risks, benefits, alternatives have been discussed. Consent was obtained. Procedure After time out was called, bronchoscopy was begun. Airway was evaluated. Secretions were aspirated. ETT was pulled back to about 18cm at the teeth. Later, had to be retracted to 16cm. Dr. Ye performed the tracheostomy under bronchoscopic guidance. Introducer needle was seen safely entering the trachea. Trach was placed after serial dilation. Bronchoscope was then inserted through the trach to confirm position. There was at 5-6 centimeters of space above the amando. There was some blood in the airway that required a few passes to clean out. There was no evidence of active bleeding. The pulsation of the innominate artery was no seen. Patient had good inspiratory and expiratory tidal volumes. Pt was stable in ICU. Findings: normal anatomy Implants: 8 Shiley Trach tube Anesthesia: MAC Surgeon: RICARDO AGUSTIN [employer]: REGLA YE (Performed Trach) Estimated blood loss: minimal Pathology: none Condition: stable Disposition: ICU
--- NOTE | 2018-09-14 17:23 | XRay Report ---
PROCEDURE: XR ABDOMEN 1V AP HISTORY: ngt placement for feeding FINDINGS: Supine view of the abdomen was acquired. There is a nasogastric tube with its tip in the ga stric fundus. There is a left pleural effusion. There is cardiomegaly. IMPRESSION: The nasogastric tube terminates in the gastric fundus This document is electronically signed by Zac Mcginnis MD., September 14 2018 05:21:27 PM ET
--- NOTE | 2018-09-14 17:25 | XRay Report ---
PROCEDURE: XR CHEST 1V AP HISTORY: s/p tracheostomy, NGT placement FINDINGS: Single frontal view of the chest was acquired and compared to the prior examination of Apri l 16. There is cardiomegaly and mild pulmonary edema, similar to prior exam. There are small bilateral pleu ral effusions which are slightly larger than on the prior exam. There is a nasogastric tube which terminates in the gastric fundus. IMPRESSION: Cardiomegaly and mild pulmonary edema, similar to prior exam Small bilateral pleural effusions, slightly worse This document is electronically signed by Zac Mcginnis MD., September 14 2018 05:22:49 PM ET
[2018-09-15] MEDS: HumaLOG SUB-Q SCH ×4 (00:13→18:00)
[2018-09-15] MEDS: fentaNYL DRIP Premix 2,000 MCG/100 ML BAG IV SCH ×5 (00:43→22:28)
[2018-09-15] MEDS: DUONEB *Not for PRN Use IH SCH ×4 (03:31→19:59)
[2018-09-15 04:37] LABS: Basophils % (Auto) 0.4 % (0.0-1.8); Hemoglobin 7.7 gm/dl (10.1-14.3); Lymphocytes # (Auto) 1.1 K/mm3 (1.2-5.4); Lymphocytes % (Auto) 18.9 % (13.4-35.0); Mean Corpuscular HGB Conc 34 % (30-34); Mean Corpuscular Volume 93 fl (79-97); Monocytes # (Auto) 0.4 K/mm3 (0.0-0.8); Monocytes % (Auto) 6.5 % (0.0-7.3); Platelet Count 153 K/mm3 (140-440); Red Blood Count 2.46 M/mm3 (3.65-5.03); Red Cell Distribution Width 18.6 % (13.2-15.2)
[2018-09-15 05:01] LABS: BUN/Creatinine Ratio 30; Blood Urea Nitrogen 21 mg/dL (7-17); Calcium 7.9 mg/dL (8.4-10.2); Hemolysis Index 3
[2018-09-15] MEDS: ZOSYN/NS 4.5GM/100ML 4.5 GM/100 ML VIAL IV SCH ×4 (05:30→17:46)
[2018-09-15] MEDS: DILAUDID PO SCH ×4 (05:30→17:51)
[2018-09-15] MEDS: APRESOLINE PO SCH ×3 (05:31→22:26)
--- NOTE | 2018-09-15 07:32 | Hem/Onc Progress Note ---
Assessment and Plan #. Bilateral posterior tibial and peroneal vein deep venous thrombosis, left leg edema. Arixtra #. h/o Thrombocytopenia. The patient was on heparin-based treatment. Later fondaparinux. HIT negative, now better #. Anemia. At admission, hemoglobin was normal. The patient received blood transfusion. deficiency workup low iron - Ferritin - b12 - folate normal . There may be a bleeding component. s/p Iv iron trial #. Pulmonary embolism study is negative. #. h/o Camryn infection. #. Chronic obstructive pulmonary disease. #. History of renal failure. Nephrology following. #. Respiratory failure, on ventilator. History of cardiomyopathy. Trach done PEG pending Off arixtra for procedure candidate for IVC filter eval as pt has been anemic needing transfusion - Patient Problems (1) Thrombocytopenia Current Visit: Yes Status: Acute (2) DVT (deep venous thrombosis) Current Visit: Yes Status: Acute (3) Anemia Current Visit: Yes Status: Acute Subjective Date of service: 09/15/18 Principal diagnosis: DVt - anemia Interval history: s/p trach Objective - Constitutional Vitals: Last Vital Signs Temp 98.2 F 09/15/18 04:00 Pulse 74 09/15/18 07:01 Resp 22 09/15/18 07:01 BP 116/59 09/15/18 07:01 Pulse Ox 95 09/15/18 07:01 - Labs Lab Results: Laboratory Results - last 24 hr 09/14/18 09/14/18 09/14/18 12:00 12:27 17:54 WBC RBC Hgb Hct MCV MCH MCHC RDW Plt Count Lymph % (Auto) Burnet % (Auto) Eos % (Auto) Baso % (Auto) Lymph # Burnet # Eos # Baso # Seg Neutrophils % Seg Neutrophils # POC ABG pH POC ABG pCO2 POC ABG pO2 POC ABG HCO3 POC ABG Total CO2 POC ABG O2 Sat POC ABG Base Excess FiO2 Sodium Potassium Chloride Carbon Dioxide Anion Gap BUN Creatinine Estimated GFR BUN/Creatinine Ratio Glucose POC Glucose 125 H 138 H Calcium Blood Type O POSITIVE Antibody Screen Negative Crossmatch See Detail 09/15/18 09/15/18 09/15/18 00:01 03:49 04:10 WBC 5.7 RBC 2.46 L Hgb 7.7 L Hct 23.0 L MCV 93 MCH 31 MCHC 34 RDW 18.6 H Plt Count 153 Lymph % (Auto) 18.9 Burnet % (Auto) 6.5 Eos % (Auto) 0.0 Baso % (Auto) 0.4 Lymph # 1.1 L Burnet # 0.4 Eos # 0.0 Baso # 0.0 Seg Neutrophils % 74.2 H Seg Neutrophils # 4.2 POC ABG pH 7.400 POC ABG pCO2 58.2 H POC ABG pO2 90 POC ABG HCO3 36.0 POC ABG Total CO2 38 POC ABG O2 Sat 97 POC ABG Base Excess 11 FiO2 50 Sodium Potassium Chloride Carbon Dioxide Anion Gap BUN Creatinine Estimated GFR BUN/Creatinine Ratio Glucose POC Glucose 90 Calcium Blood Type Antibody Screen Crossmatch 09/15/18 09/15/18 04:10 05:34 WBC RBC Hgb Hct MCV MCH MCHC RDW Plt Count Lymph % (Auto) Burnet % (Auto) Eos % (Auto) Baso % (Auto) Lymph # Burnet # Eos # Baso # Seg Neutrophils % Seg Neutrophils # POC ABG pH POC ABG pCO2 POC ABG pO2 POC ABG HCO3 POC ABG Total CO2 POC ABG O2 Sat POC ABG Base Excess FiO2 Sodium 141 Potassium 3.8 Chloride 98.9 Carbon Dioxide 35 H Anion Gap 11 BUN 21 H Creatinine 0.7 Estimated GFR > 60 BUN/Creatinine Ratio 30 Glucose 91 POC Glucose 94 Calcium 7.9 L Blood Type Antibody Screen Crossmatch Medications & Allergies - Medications Allergies/Adverse Reactions: Allergies No Known Allergies Allergy (Unverified 08/15/18 16:49) Home Medications: Home Medications Medication Instructions Recorded Confirmed Last Taken Type Carvedilol 6.25 mg PO BID 08/15/18 08/15/18 Unknown History DULoxetine 60 mg PO QDAY 08/15/18 08/15/18 Unknown History Gabapentin 600 mg PO Q6HR PRN 08/15/18 08/15/18 Unknown History Methylphenidate 5 mg PO TID 08/15/18 08/15/18 Unknown History Morphabond ER 60 mg PO Q12HR 08/15/18 08/15/18 Unknown History Pravastatin Sodium 10 mg PO QDAY 08/15/18 08/15/18 Unknown History Tizanidine HCl 4 mg PO Q12HR 08/15/18 08/15/18 Unknown History oxyCODONE /ACETAMINOPHEN 7.5 - 325 mg PO Q8HR 08/15/18 08/15/18 Unknown History ALBUTEROL Inhaler(NF) 90 mcg IH TID 08/29/18 08/29/18 Unknown History Omeprazole-Bicarb 40-1,100 Cap 40 mg PO DAILY 08/29/18 08/29/18 Unknown History Active Medications: Generic Name Dose Route Start Last Admin Trade Name Freq PRN Reason Stop Dose Admin Acetaminophen 650 mg 08/15/18 22:12 09/14/18 03:55 Tylenol PO 650 mg Q4H PRN Administration Pain MILD(1-3)/Fever >100.5/MONDRAGON Albuterol 2.5 mg 08/17/18 17:00 Proventil IH Q3HRT PRN Shortness Of Breath Albuterol/Ipratropium 1 ampul 08/20/18 14:00 09/15/18 03:31 Duoneb *Not For Prn Use* IH Not Given Q6HRT LAMAR Lipase/Protease/Amylase 1 each 09/02/18 10:40 Pancreazrashad Elizabeth 10,500 Unit FEEDTUBE PRN PRN For Clogged Feeding Tube Arformoterol Tartrate 15 mcg 08/18/18 20:00 09/14/18 19:20 Brovana Nebu IH 15 mcg Q12HRT LAMAR Administration Budesonide 0.5 mg 08/18/18 20:00 09/14/18 19:20 Pulmicort IH 0.5 mg Q12HRT LAMAR Administration Carvedilol 3.125 mg 08/26/18 15:19 09/14/18 21:44 Coreg PO 3.125 mg BID LAMAR Administration Famotidine 20 mg 09/05/18 10:00 09/14/18 21:44 Pepcid PO 20 mg BID LAMAR Administration Fondaparinux 7.5 mg 09/07/18 10:00 09/12/18 09:09 Arixtra SUB-Q 7.5 mg DAILY LAMAR Administration Furosemide 20 mg 09/13/18 11:00 09/14/18 18:13 Lasix PO 20 mg QAM LAMAR Administration Hydralazine HCl 10 mg 08/19/18 13:59 09/10/18 19:32 Apresoline IV 10 mg Q3H PRN Administration Hydralazine HCl 25 mg 09/01/18 14:00 09/15/18 05:31 Apresoline PO Not Given Q8HR LAMAR Hydromorphone HCl 1 mg 09/06/18 10:38 09/12/18 16:30 Dilaudid IV 1 mg Q4H PRN Administration Pain , Severe (7-10) Hydromorphone HCl 2 mg 09/06/18 12:00 09/15/18 05:30 Dilaudid PO 2 mg Q6HR [facility] Administration Hydrophilic Ointment 1 applic 08/15/18 21:55 09/01/18 09:07 Vaseline Lip Therapy TP 1 applic Q2HR PRN Administration Dry Lips Fentanyl Citrate 2,000 mcg in 100 mls @ 4.765 mls/hr 09/02/18 11:00 09/15/18 06:09 Fentanyl Drip Premix IV 4 mcg/kg/hr TITR LAMAR 19.06 mls/hr Administration Protocol 1 MCG/KG/HR Piperacillin Sod/Tazobactam Sod 4.5 gm in 100 mls @ 200 mls/hr 09/14/18 13:00 09/15/18 05:30 Zosyn/Ns 4.5gm/100ml IV 200 mls/hr Q6HR [facility] Administration Protocol Insulin Human Lispro 0 unit 09/04/18 18:00 09/15/18 05:31 Humalog SUB-Q Not Given Q6HR [facility] Protocol Metoclopramide HCl 5 mg 08/15/18 22:50 Reglan IV Q6H PRN Nausea And Vomiting Midazolam HCl 1 mg 09/07/18 09:23 09/12/18 17:34 Versed IV 1 mg Q4H PRN Administration AGITATION Ondansetron HCl 4 mg 08/15/18 22:12 08/31/18 17:52 Zofran IV 4 mg Q8H PRN Administration Nausea And Vomiting Quetiapine Fumarate 200 mg 09/04/18 15:00 09/14/18 21:44 Seroquel PO 200 mg BID [facility] Administration Senna/Docusate Sodium 2 tab 09/06/18 11:00 09/14/18 21:44 Senokot S PO 2 tab BID L[facility]AR Administration Simple Syrup 15 ml 09/02/18 11:24 Simple Syrup FEEDTUBE PRN PRN Hypoglycemia Simple Syrup 30 ml 09/02/18 11:24 Simple Syrup FEEDTUBE PRN PRN Hypoglycemia Sodium Bicarbonate 325 mg 04/05/19 10:40 Sodium Bicarbonate FEEDTUBE PRN PRN For Clogged Feeding Tube Sodium Chloride 10 ml 08/15/18 22:12 09/12/18 22:05 Sodium Chloride Flush Syringe 10 Ml IV 10 ml PRN PRN Administration LINE FLUSH
[2018-09-15] MEDS: BROVANA NEBU IH SCH ×2 (08:01→19:59)
[2018-09-15] MEDS: PULMICORT IH SCH ×2 (08:01→19:59)
[2018-09-15] MEDS: LASIX PO SCH (09:56)
[2018-09-15] MEDS: COREG PO SCH ×2 (09:56→22:26)
[2018-09-15] MEDS: SENOKOT S PO SCH ×2 (09:57→22:26)
[2018-09-15] MEDS: PEPCID PO SCH ×2 (09:57→22:26)
--- NOTE | 2018-09-15 09:58 | Progress Note ---
Assessment and Plan Cultures: 08/15/2018 blood culture: Camryn glabrata 1 of 4 08/15/2018 sputum culture: MSSA and Escherichia coli, wade susceptible 08/18/2018 blood culture: no growth 08/18/2018 urine culture: neg 08/22/2018 blood culture: no growth 08/25/2018 blood culture: no growth 09/02/2018 BAL cultures: resp almaz. Fungal and AFB pending: No growth thus far. 09/04/2018 blood culture: no growth thus far 09/04/2018 trach aspirate: no growth Fungitell was high (consistent with Candidemia), Aspergillus galactomannan negative. 09/13/2018 blood culture: no growth thus far A/P: 68-year-old female with COPD, arthritis, history of multiple spinal surgeries was brought to the emergency room on 08/15/2018 with altered mental status: 1) Sepsis with septic shock: resolved. New fever 09/13 and 09/14. Etiology unclear. Blood cultures in process. Has indwelling PICC and Dodge. Urine does not appear cloudy, draining well. ?sinusitis, from prolonged intubation. Was noted on earlier head CT. 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 Patient without any history of indwelling PICC line, TPN or immunocompromised status. reported severe explosive diarrhea, N/V before admission after taken 4 days of amoxicillin for dental implant on 07/29/2018 and had a EGD / colonoscopy on 08/08/[address] [facility] [address] Alcantara. I reviewed report - mild chronic gastritis, focal intestinal metaplasia, squamocolumnar mucosa with mild reflux-type changes, and tubular adenoma. -s/p fluconazole 800 mg loading dose then micafungin, s/p amphotericin D6 on 08/26 -serum Crypto negative. -08/15/2018 blood culture: Camryn glabrata -08/18/2018 blood culture: no growth -CTA chest showed limited study due to respiratory motion artifact. No evidence of pulmonary embolism. Abnormal bilateral lung consolidation which may represent pulmonary edema or pneumonia. Mild cardiomegaly. Indeterminant mediastinal lymph nodes. -CT abdomen showed extensive bilateral lower lobe pulmonary infiltrates, rectal tube and Dodge catheter noted. NG tube at gastric antrum. Left hip prosthesis Extensive degenerative changes noted lumbar spine -TTE EF 25-30% no vegetations -HIV neg/ CD4 1004 -reviewed CT chest abd done 01/05/2019 showed cholecystectomy, mild fatty liver, postoperative changes of lumbar laminectomy with non specific fluid, 9 mm LLL pulmonary nodule which was compared to previous CT and was stable. -CRP 10-->5 3) Acute renal failure: On admission: improved. 4) Acute respiratory failure: Back on the vent. Recently completed pneumonia treatment. WBC up and low grade fever. Underwent bronch + BAL on 09/02/2018. Cultures with no growth thus far. On abx. CTA chest 09/06/2018 negative for PE, bilateral air space disease, no air bronchograms as such. High oxygen requirements, ?ARDS v/s fluid overload. 5) Right maxillary sinusitis: received empiric abx. 6) Acute encephalopathy: Likely multifactorial. CT head unremarkable for acute intracranial process. 7) Cardiomyopathy, LVEF 25-30% this admission. 8) H/O left hip prosthesis ? XR no effusion. CT with no enhancement 9) Left leg DVT: on anticoagulation. Hematology following. 10) Mild transaminitis: monitor for now. RUQ US unremarkable. Recs: fevers better. Continue IV Zosyn D2 (of 5-7 day course), will also cover for sinusitis follow up blood cultures and procalcitonin Dr. Leonard marina tomorrow. Brando Pradhan MD [facility], [place], [facility] C: [phone] O: [phone] F: [phone] Subjective Date of service: 09/15/18 Principal diagnosis: DVt - anemia Interval history: No fevers. Had trach done yesterday. No diarrhea. No rash. Tolerating Zosyn. Objective - Exam Narrative Exam: Physical Exam: Constitutional: awake, no distress Head, Ears, Nose: Normocephalic, atraumatic. External ears, nose normal Eyes: Conjunctivae/corneas clear. No icterus. No ptosis. Neck: trach + Oral: no ulcers Cardiovascular: S1, S2 normal. Respiratory: clear b/l, AE equal bilaterally GI: Soft, non tender, bowel sounds normal. No peritoneal signs. Musculoskeletal: pedal edema bilaterally 2+. L>R Skin: No rash or abscess Hem/Lymphatic: No palpable cervical or supraclavicular nodes. No lymphangitis Psych: calm, no agitation Neurological: awake, intubated, obeying basic commands - Constitutional Vitals: Vital Signs Temp Pulse Resp BP Pulse Ox 99.5 F 64 13 114/41 95 09/15/18 08:00 09/15/18 09:30 09/15/18 09:30 09/15/18 09:30 09/15/18 09:30 Temperature -Last 24 Hours Temperature 99.5 F Temperature 98.2 F Temperature 99.2 F Temperature 99.2 F Temperature 99.2 F Temperature 98.7 F Temperature 98.8 F Temperature 98.0 F Temperature 98.9 F Temperature 99.1 F Temperature 98.9 F Temperature 99.5 F Temperature 99.2 F Temperature 99.2 F Temperature 99.2 F - Labs CBC & Chem 7: 09/15/18 04:10 09/15/18 04:10 Labs: Abnormal lab results 09/14/18 09/14/18 09/14/18 Range/Units 12:00 12:27 17:54 RBC (3.65-5.03) M/mm3 Hgb (10.1-14.3) gm/dl Hct (30.3-42.9) % RDW (13.2-15.2) % Lymph # (1.2-5.4) K/mm3 Seg Neutrophils % (40.0-70.0) % POC ABG pCO2 (35-45) Carbon Dioxide (22-30) mmol/L BUN (7-17) mg/dL POC Glucose 125 H 138 H (70-105) Calcium (8.4-10.2) mg/dL Crossmatch See Detail 09/15/18 09/15/18 09/15/18 Range/Units 03:49 04:10 04:10 RBC 2.46 L (3.65-5.03) M/mm3 Hgb 7.7 L (10.1-14.3) gm/dl Hct 23.0 L (30.3-42.9) % RDW 18.6 H (13.2-15.2) % Lymph # 1.1 L (1.2-5.4) K/mm3 Seg Neutrophils % 74.2 H (40.0-70.0) % POC ABG pCO2 58.2 H (35-45) Carbon Dioxide 35 H (22-30) mmol/L BUN 21 H (7-17) mg/dL POC Glucose (70-105) Calcium 7.9 L (8.4-10.2) mg/dL Crossmatch - Imaging and cardiology Chest x-ray: report reviewed, image reviewed (unchanged bilateral reticular pattern.) Abdominal x-ray: report reviewed, image reviewed (no significant abnormality noted.)
--- NOTE | 2018-09-15 11:20 | Progress Note ---
Assessment and Plan Acute hypoxic-hypercapnic respiratory failure on MVS Acute COPD exacerbation DVT NSTEMI Acute encephalopathy (toxic-metabolic) Thrombocytopenia Hypokalemia Acute kidney injury h/o Chronic Narcotic Dependence Aspiration pneumonia/CAP Hypokalemia GNR in tracheal aspirate Hypernatremia (discussed utility of early tracheostomy with her ) - for tracheostomy once more stable - continue diuresis while monitoring hemodynamics - continue prn analgesia - Continue to Wean supplemental oxygen to keep O2 sats > 88-90% - anti-infective's adjusted by ID team - continue accuchecks q6h and target glycemic control for BG 140 - 180 mg/dl acutely - azotemia per nephrology team - continue seroquel and target sedatives for RASS 0 to -1 - CD4 count WNL - HIT assay negative - complete and adjust antifungal therapy per ID - nephrology input appreciated - cardiology consulted for CHF - continue brovana & pulmicort re: COPD - continue lung protective strategies - Daily ABGs/CXR for now - VAP bundle addressed - continue to avoid benzodiazepines, use high dose fentanyl for agitation and analgesia - Sedation target for RASS 0 to -1 - Stress ulcer prophylaxis - VTE prophylaxis - enteral Nutrition as tolerated - VAP bundle addressed - Continue bronchodilators with pulmonary hygiene per RT - Maintenance of sleep -wake cycle - Mobility protocol for pressure ulcer prophylaxis as tolerated by hemodynamics - Influenza and pneumonia vaccination per protocol ..care plan discussed at length with family at the bedside ... re-evaluate in am & prn PROGNOSIS :FAIR CONDITION: CRITICAL CODE STATUS: FULL CODE The high probability of a clinically significant, sudden or life-threatening deterioration of the [respiratory, neurology, renal] system(s) required my full and direct attention, intervention and personal management. The aggregate critical care time was [32] minutes without overlap. Time includes spent on; [x] Data Review and interpretation [x] Patient assessment and monitoring of vital signs [x] Documentation [x] Medication orders and management Subjective Date of service: 09/15/18 Principal diagnosis: Acute hypoxemic hypercapnic Resp failure; AE-COPD; Acute kidney injury Interval history: Patient is seen today for: Acute hypoxemic - hypercapnic respiratory failure on MVS; Acute COPD exacerbation; Acute encephalopathy (toxic-metabolic); Hypokalemia; Acute kidney injury Seen and examined at bedside; 24hour events reviewed; nursing and respiratory care staff consulted; no adverse overnight events reported to me; remains on MVS; Objective Vital Signs - 12hr 09/14/18 09/14/18 09/15/18 23:30 23:45 00:00 Temperature 99.2 F Pulse Rate 67 70 63 Pulse Rate [ Anterior Bilateral Throughout] Pulse Rate [ 69 From Monitor] Respiratory 13 15 Rate Respiratory Rate [Anterior Bilateral Throughout] Respiratory Rate [ Generalized] Blood Pressure 103/44 109/46 112/45 O2 Sat by Pulse 98 99 99 Oximetry O2 Sat by Pulse Oximetry [ Assessment] 09/15/18 09/15/18 09/15/18 00:30 01:00 01:30 Temperature Pulse Rate 67 71 64 Pulse Rate [ Anterior Bilateral Throughout] Pulse Rate [ From Monitor] Respiratory 13 11 L 13 Rate Respiratory Rate [Anterior Bilateral Throughout] Respiratory Rate [ Generalized] Blood Pressure 106/44 109/45 112/46 O2 Sat by Pulse 100 99 99 Oximetry O2 Sat by Pulse Oximetry [ Assessment] 09/15/18 09/15/18 09/15/18 02:01 02:30 03:00 Temperature Pulse Rate 65 63 63 Pulse Rate [ Anterior Bilateral Throughout] Pulse Rate [ From Monitor] Respiratory 11 L 10 L 13 Rate Respiratory Rate [Anterior Bilateral Throughout] Respiratory Rate [ Generalized] Blood Pressure 111/42 96/46 100/37 O2 Sat by Pulse 97 98 Oximetry O2 Sat by Pulse Oximetry [ Assessment] 09/15/18 09/15/18 09/15/18 03:30 03:46 03:47 Temperature Pulse Rate 60 62 Pulse Rate [ Anterior Bilateral Throughout] Pulse Rate [ From Monitor] Respiratory 12 Rate Respiratory Rate [Anterior Bilateral Throughout] Respiratory Rate [ Generalized] Blood Pressure 103/39 103/39 O2 Sat by Pulse 99 98 Oximetry O2 Sat by Pulse 100 Oximetry [ Assessment] 09/15/18 09/15/18 09/15/18 04:00 04:01 04:30 Temperature 98.2 F Pulse Rate 65 62 62 Pulse Rate [ Anterior Bilateral Throughout] Pulse Rate [ 63 From Monitor] Respiratory 14 13 12 Rate Respiratory Rate [Anterior Bilateral Throughout] Respiratory Rate [ Generalized] Blood Pressure 103/39 102/38 O2 Sat by Pulse 100 95 93 Oximetry O2 Sat by Pulse Oximetry [ Assessment] 09/15/18 09/15/18 09/15/18 05:01 05:30 05:31 Temperature Pulse Rate 73 64 64 Pulse Rate [ Anterior Bilateral Throughout] Pulse Rate [ From Monitor] Respiratory 15 13 Rate Respiratory Rate [Anterior Bilateral Throughout] Respiratory Rate [ Generalized] Blood Pressure 109/43 96/42 96/42 O2 Sat by Pulse 97 97 Oximetry O2 Sat by Pulse Oximetry [ Assessment] 09/15/18 09/15/18 09/15/18 06:01 06:31 07:01 Temperature Pulse Rate 68 67 74 Pulse Rate [ Anterior Bilateral Throughout] Pulse Rate [ From Monitor] Respiratory 13 17 22 Rate Respiratory Rate [Anterior Bilateral Throughout] Respiratory Rate [ Generalized] Blood Pressure 108/38 106/44 116/59 O2 Sat by Pulse 94 95 95 Oximetry O2 Sat by Pulse Oximetry [ Assessment] 09/15/18 09/15/18 09/15/18 07:30 08:00 08:01 Temperature 99.5 F Pulse Rate 73 64 Pulse Rate [ Anterior Bilateral Throughout] Pulse Rate [ 66 From Monitor] Respiratory 14 14 Rate Respiratory Rate [Anterior Bilateral Throughout] Respiratory 17 Rate [ Generalized] Blood Pressure 110/43 91/46 O2 Sat by Pulse 94 95 Oximetry O2 Sat by Pulse 96 Oximetry [ Assessment] 09/15/18 09/15/18 09/15/18 08:02 08:30 08:39 Temperature Pulse Rate 66 58 L Pulse Rate [ 68 66 Anterior Bilateral Throughout] Pulse Rate [ From Monitor] Respiratory 14 Rate Respiratory 17 17 Rate [Anterior Bilateral Throughout] Respiratory Rate [ Generalized] Blood Pressure 91/46 99/45 O2 Sat by Pulse 96 Oximetry O2 Sat by Pulse Oximetry [ Assessment] 09/15/18 09/15/18 09/15/18 08:43 09:00 09:30 Temperature Pulse Rate 66 71 64 Pulse Rate [ Anterior Bilateral Throughout] Pulse Rate [ From Monitor] Respiratory 11 L 15 13 Rate Respiratory Rate [Anterior Bilateral Throughout] Respiratory Rate [ Generalized] Blood Pressure 118/46 114/41 O2 Sat by Pulse 96 95 95 Oximetry O2 Sat by Pulse Oximetry [ Assessment] 09/15/18 09/15/18 09/15/18 09:56 10:00 10:30 Temperature Pulse Rate 70 72 68 Pulse Rate [ Anterior Bilateral Throughout] Pulse Rate [ From Monitor] Respiratory 17 14 Rate Respiratory Rate [Anterior Bilateral Throughout] Respiratory Rate [ Generalized] Blood Pressure 112/44 112/42 102/32 O2 Sat by Pulse 95 96 Oximetry O2 Sat by Pulse Oximetry [ Assessment] 09/15/18 11:00 Temperature Pulse Rate 71 Pulse Rate [ Anterior Bilateral Throughout] Pulse Rate [ From Monitor] Respiratory 12 Rate Respiratory Rate [Anterior Bilateral Throughout] Respiratory Rate [ Generalized] Blood Pressure 99/39 O2 Sat by Pulse 97 Oximetry O2 Sat by Pulse Oximetry [ Assessment] Constitutional: appears uncomfortable, other (elderly looking CF, normocephalic and atraumatic) Eyes: non-icteric ENT: oropharynx moist, other (ETT 23 cm MARTHA) Neck: supple, no lymphadenopathy, no JVD, other (no thyromegaly) Effort: mildly labored Ascultation: Bilateral: diminished breath sounds, rales, rhonchi Percussion: Bilateral: not dull Cardiovascular: regular rate and rhythm Gastrointestinal: normoactive bowel sounds, soft, non-tender, non-distended Integumentary: normal Extremities: no cyanosis, no ischemia or petechiae, edema (Left lower extremity) Neurologic: non-focal exam (grossly), pupils equal and round, CN II-XII normal, motor strength normal and Psychiatric: other (unable to assess) CBC and BMP: 09/15/18 04:10 09/15/18 04:10 ABG, PT/INR, D-dimer: ABG POC ABG pH 7.400 (7.35-7.45) 09/15/18 03:49 POC ABG pCO2 58.2 (35-45) H 09/15/18 03:49 POC ABG pO2 90 (80-105) 09/15/18 03:49 POC ABG HCO3 36.0 (22-26 mml/L) 09/15/18 03:49 POC ABG Total CO2 38 (23-27mmol/L) 09/15/18 03:49 POC ABG O2 Sat 97 09/15/18 03:49 PT/INR, D-dimer PT 14.2 Sec. (12.2-14.9) 09/14/18 04:55 INR 1.04 (0.87-1.13) 09/14/18 04:55 D-Dimer 2768.33 ng/mlDDU (0-234) H 08/15/18 18:31 Abnormal lab findings: Abnormal Labs 08/15/18 08/15/18 08/15/18 17:52 17:52 17:52 WBC 12.7 H RBC 3.25 L Hgb Hct RDW Plt Count Lymph % (Auto) [place] % (Auto) Lymph # [place] # Seg Neutrophils % Seg Neuts % (Manual) Lymphocytes % (Manual) 6.0 L Nucleated RBC % Seg Neutrophils # Seg Neutrophils # Man Lymphocytes # (Manual) 0.8 L D-Dimer POC ABG pH POC ABG pCO2 POC ABG pO2 VBG pH Sodium Potassium 3.4 L Chloride 94.6 L Carbon Dioxide 17 L BUN 67 H Creatinine 3.5 H Glucose 131 H POC Glucose Hemoglobin A1c Lactic Acid 5.20 H* Calcium 7.6 L Phosphorus Magnesium Iron TIBC AST 887 H ALT 316 H Troponin T C-Reactive Protein Total Protein Albumin 3.1 L Triglycerides LDL Cholesterol Direct HDL Cholesterol Urine WBC (Auto) Vancomycin Trough Salicylates Acetaminophen % CD3 Cells % CD19 Cells Absolute CD19 Count Miscellaneous Test Crossmatch 08/15/18 08/15/18 08/15/18 18:11 18:19 18:31 WBC RBC Hgb Hct RDW Plt Count Lymph % (Auto) [place] % (Auto) Lymph # [place] # Seg Neutrophils % Seg Neuts % (Manual) Lymphocytes % (Manual) Nucleated RBC % Seg Neutrophils # Seg Neutrophils # Man Lymphocytes # (Manual) D-Dimer 2768.33 H POC ABG pH 7.173 L POC ABG pCO2 47.8 H POC ABG pO2 177 H VBG pH 7.187 L* Sodium Potassium Chloride Carbon Dioxide BUN Creatinine Glucose POC Glucose Hemoglobin A1c Lactic Acid Calcium Phosphorus Magnesium Iron TIBC AST ALT Troponin T C-Reactive Protein Total Protein Albumin Triglycerides LDL Cholesterol Direct HDL Cholesterol Urine WBC (Auto) Vancomycin Trough Salicylates Acetaminophen % CD3 Cells % CD19 Cells Absolute CD19 Count Miscellaneous Test Crossmatch 08/15/18 08/15/18 08/15/18 18:31 19:14 19:14 WBC RBC Hgb Hct RDW Plt Count Lymph % (Auto) [place] % (Auto) Lymph # [place] # Seg Neutrophils % Seg Neuts % (Manual) Lymphocytes % (Manual) Nucleated RBC % Seg Neutrophils # Seg Neutrophils # Man Lymphocytes # (Manual) D-Dimer POC ABG pH POC ABG pCO2 POC ABG pO2 VBG pH Sodium Potassium Chloride Carbon Dioxide BUN Creatinine Glucose POC Glucose Hemoglobin A1c Lactic Acid 2.70 H* Calcium Phosphorus Magnesium Iron TIBC AST ALT Troponin T 0.454 H* C-Reactive Protein Total Protein Albumin Triglycerides 356 H LDL Cholesterol Direct 4 L HDL Cholesterol 10 L Urine WBC (Auto) Vancomycin Trough Salicylates < 0.3 L Acetaminophen % CD3 Cells % CD19 Cells Absolute CD19 Count Miscellaneous Test Crossmatch 08/15/18 08/15/18 08/15/18 19:14 19:15 23:09 WBC RBC Hgb Hct RDW Plt Count Lymph % (Auto) [place] % (Auto) Lymph # [place] # Seg Neutrophils % Seg Neuts % (Manual) Lymphocytes % (Manual) Nucleated RBC % Seg Neutrophils # Seg Neutrophils # Man Lymphocytes # (Manual) D-Dimer POC ABG pH POC ABG pCO2 POC ABG pO2 VBG pH Sodium Potassium Chloride Carbon Dioxide BUN Creatinine Glucose POC Glucose Hemoglobin A1c Lactic Acid 3.20 H* Calcium Phosphorus Magnesium Iron TIBC AST ALT Troponin T C-Reactive Protein Total Protein Albumin Triglycerides LDL Cholesterol Direct HDL Cholesterol Urine WBC (Auto) 17.0 H Vancomycin Trough Salicylates Acetaminophen < 5.0 L % CD3 Cells % CD19 Cells Absolute CD19 Count Miscellaneous Test Crossmatch 08/15/18 08/16/18 08/16/18 23:09 01:41 05:38 WBC RBC 3.07 L Hgb 9.8 L Hct 28.7 L RDW Plt Count Lymph % (Auto) [place] % (Auto) Lymph # [place] # Seg Neutrophils % Seg Neuts % (Manual) 84.0 H Lymphocytes % (Manual) 6.0 L Nucleated RBC % 4.0 H Seg Neutrophils # Seg Neutrophils # Man Lymphocytes # (Manual) 0.5 L D-Dimer POC ABG pH 7.323 L POC ABG pCO2 34.7 L POC ABG pO2 78 L VBG pH Sodium Potassium Chloride Carbon Dioxide BUN Creatinine Glucose POC Glucose Hemoglobin A1c 6.4 H Lactic Acid Calcium Phosphorus Magnesium Iron TIBC AST ALT Troponin T C-Reactive Protein Total Protein Albumin Triglycerides LDL Cholesterol Direct HDL Cholesterol Urine WBC (Auto) Vancomycin Trough Salicylates Acetaminophen % CD3 Cells % CD19 Cells Absolute CD19 Count Miscellaneous Test Crossmatch 08/16/18 08/16/18 08/17/18 05:38 22:43 03:42 WBC RBC Hgb Hct RDW Plt Count Lymph % (Auto) [place] % (Auto) Lymph # [place] # Seg Neutrophils % Seg Neuts % (Manual) Lymphocytes % (Manual) Nucleated RBC % Seg Neutrophils # Seg Neutrophils # Man Lymphocytes # (Manual) D-Dimer POC ABG pH POC ABG pCO2 POC ABG pO2 VBG pH Sodium Potassium 2.9 L* 3.1 L 2.9 L* Chloride 108.8 H 111.9 H Carbon Dioxide 17 L 19 L 21 L BUN 62 H 40 H 33 H Creatinine 2.0 H Glucose 139 H 145 H POC Glucose Hemoglobin A1c Lactic Acid Calcium 7.8 L 8.3 L Phosphorus 1.50 L Magnesium Iron TIBC AST 619 H ALT 353 H Troponin T C-Reactive Protein Total Protein 6.1 L Albumin 2.8 L Triglycerides LDL Cholesterol Direct HDL Cholesterol Urine WBC (Auto) Vancomycin Trough Salicylates Acetaminophen % CD3 Cells % CD19 Cells Absolute CD19 Count Miscellaneous Test Crossmatch 08/17/18 08/17/18 08/18/18 11:02 16:42 03:28 WBC RBC Hgb Hct RDW Plt Count Lymph % (Auto) [place] % (Auto) Lymph # [place] # Seg Neutrophils % Seg Neuts % (Manual) Lymphocytes % (Manual) Nucleated RBC % Seg Neutrophils # Seg Neutrophils # Man Lymphocytes # (Manual) D-Dimer POC ABG pH 7.483 H 7.499 H POC ABG pCO2 POC ABG pO2 VBG pH Sodium 147 H Potassium 3.2 L Chloride 115.8 H Carbon Dioxide BUN 23 H Creatinine Glucose 121 H POC Glucose Hemoglobin A1c Lactic Acid Calcium 8.1 L Phosphorus 2.30 L D Magnesium Iron TIBC AST ALT Troponin T C-Reactive Protein Total Protein Albumin Triglycerides LDL Cholesterol Direct HDL Cholesterol Urine WBC (Auto) Vancomycin Trough Salicylates Acetaminophen % CD3 Cells % CD19 Cells Absolute CD19 Count Miscellaneous Test Crossmatch 08/18/18 08/18/18 08/18/18 04:10 13:39 13:39 WBC RBC Hgb Hct RDW Plt Count Lymph % (Auto) [place] % (Auto) Lymph # [place] # Seg Neutrophils % Seg Neuts % (Manual) Lymphocytes % (Manual) Nucleated RBC % Seg Neutrophils # Seg Neutrophils # Man Lymphocytes # (Manual) D-Dimer POC ABG pH POC ABG pCO2 POC ABG pO2 VBG pH Sodium 147 H Potassium 3.3 L Chloride 111.9 H Carbon Dioxide BUN 21 H Creatinine Glucose 113 H POC Glucose Hemoglobin A1c Lactic Acid Calcium Phosphorus 1.50 L D Magnesium Iron TIBC AST ALT Troponin T 0.317 H* D C-Reactive Protein 10.70 H Total Protein Albumin Triglycerides LDL Cholesterol Direct HDL Cholesterol Urine WBC (Auto) Vancomycin Trough Salicylates Acetaminophen % CD3 Cells % CD19 Cells Absolute CD19 Count Miscellaneous Test Crossmatch 08/18/18 08/19/18 08/19/18 16:51 03:47 04:15 WBC RBC Hgb Hct RDW Plt Count Lymph % (Auto) [place] % (Auto) Lymph # [place] # Seg Neutrophils % Seg Neuts % (Manual) Lymphocytes % (Manual) Nucleated RBC % Seg Neutrophils # Seg Neutrophils # Man Lymphocytes # (Manual) D-Dimer POC ABG pH 7.454 H 7.482 H POC ABG pCO2 POC ABG pO2 65 L VBG pH Sodium 154 H Potassium 3.3 L Chloride 115.1 H Carbon Dioxide BUN 19 H Creatinine Glucose 117 H POC Glucose Hemoglobin A1c Lactic Acid Calcium 7.8 L Phosphorus Magnesium Iron TIBC AST ALT Troponin T C-Reactive Protein Total Protein Albumin Triglycerides LDL Cholesterol Direct HDL Cholesterol Urine WBC (Auto) Vancomycin Trough Salicylates Acetaminophen % CD3 Cells % CD19 Cells Absolute CD19 Count Miscellaneous Test Crossmatch 08/19/18 08/19/18 08/20/18 14:32 16:18 03:51 WBC RBC Hgb Hct RDW Plt Count Lymph % (Auto) [place] % (Auto) Lymph # [place] # Seg Neutrophils % Seg Neuts % (Manual) Lymphocytes % (Manual) Nucleated RBC % Seg Neutrophils # Seg Neutrophils # Man Lymphocytes # (Manual) D-Dimer POC ABG pH 7.483 H POC ABG pCO2 33.4 L POC ABG pO2 51 L 74 L VBG pH Sodium Potassium Chloride Carbon Dioxide BUN Creatinine Glucose POC Glucose Hemoglobin A1c Lactic Acid Calcium Phosphorus Magnesium Iron TIBC AST ALT Troponin T C-Reactive Protein Total Protein Albumin Triglycerides LDL Cholesterol Direct HDL Cholesterol Urine WBC (Auto) Vancomycin Trough Salicylates Acetaminophen % CD3 Cells 44 L % CD19 Cells 41 H Absolute CD19 Count 1290 H Miscellaneous Test Crossmatch 08/20/18 08/21/18 08/21/18 05:25 03:54 05:45 WBC 24.1 H RBC 2.83 L Hgb 8.8 L Hct 26.7 L RDW 15.7 H Plt Count 127 L Lymph % (Auto) [place] % (Auto) Lymph # [place] # Seg Neutrophils % Seg Neuts % (Manual) 94.0 H Lymphocytes % (Manual) 4.0 L Nucleated RBC % 1.0 H Seg Neutrophils # Seg Neutrophils # Man 22.7 H Lymphocytes # (Manual) 1.0 L D-Dimer POC ABG pH POC ABG pCO2 31.9 L POC ABG pO2 66 L VBG pH Sodium 146 H D Potassium Chloride 111.2 H Carbon Dioxide BUN 24 H Creatinine Glucose 141 H POC Glucose Hemoglobin A1c Lactic Acid Calcium 8.1 L Phosphorus Magnesium Iron TIBC AST 65 H ALT 104 H Troponin T C-Reactive Protein Total Protein 6.2 L Albumin 2.6 L Triglycerides LDL Cholesterol Direct HDL Cholesterol Urine WBC (Auto) Vancomycin Trough Salicylates Acetaminophen % CD3 Cells % CD19 Cells Absolute CD19 Count Miscellaneous Test Crossmatch 08/21/18 08/22/18 08/22/18 05:45 06:20 06:45 WBC RBC Hgb Hct RDW Plt Count Lymph % (Auto) [place] % (Auto) Lymph # [place] # Seg Neutrophils % Seg Neuts % (Manual) Lymphocytes % (Manual) Nucleated RBC % Seg Neutrophils # Seg Neutrophils # Man Lymphocytes # (Manual) D-Dimer POC ABG pH POC ABG pCO2 32.9 L POC ABG pO2 VBG pH Sodium Potassium 3.5 L Chloride 109.4 H 112.4 H Carbon Dioxide 21 L 20 L BUN 50 H 61 H Creatinine 2.0 H D 1.9 H Glucose 144 H 154 H POC Glucose Hemoglobin A1c Lactic Acid Calcium 7.6 L 7.8 L Phosphorus Magnesium Iron TIBC AST ALT Troponin T C-Reactive Protein Total Protein 5.3 L Albumin 2.1 L Triglycerides LDL Cholesterol Direct HDL Cholesterol Urine WBC (Auto) Vancomycin Trough Salicylates Acetaminophen % CD3 Cells % CD19 Cells Absolute CD19 Count Miscellaneous Test Crossmatch 08/22/18 08/22/18 08/22/18 06:45 15:29 18:40 WBC RBC Hgb Hct RDW Plt Count Lymph % (Auto) [place] % (Auto) Lymph # [place] # Seg Neutrophils % Seg Neuts % (Manual) Lymphocytes % (Manual) Nucleated RBC % Seg Neutrophils # Seg Neutrophils # Man Lymphocytes # (Manual) D-Dimer POC ABG pH POC ABG pCO2 POC ABG pO2 VBG pH Sodium Potassium Chloride Carbon Dioxide BUN Creatinine Glucose POC Glucose 169 H Hemoglobin A1c Lactic Acid Calcium Phosphorus Magnesium Iron TIBC AST ALT Troponin T C-Reactive Protein 4.70 H Total Protein Albumin Triglycerides 197 H LDL Cholesterol Direct HDL Cholesterol Urine WBC (Auto) Vancomycin Trough Salicylates Acetaminophen % CD3 Cells % CD19 Cells Absolute CD19 Count Miscellaneous Test Crossmatch 08/23/18 08/23/18 08/23/18 03:59 21:19 Unknown WBC 12.1 H RBC 2.29 L Hgb 7.1 L Hct 21.7 L RDW 15.7 H Plt Count 106 L Lymph % (Auto) [place] % (Auto) Lymph # [place] # Seg Neutrophils % Seg Neuts % (Manual) 92.0 H Lymphocytes % (Manual) 4.0 L Nucleated RBC % Seg Neutrophils # Seg Neutrophils # Man 11.1 H Lymphocytes # (Manual) 0.5 L D-Dimer POC ABG pH 7.306 L POC ABG pCO2 31.3 L POC ABG pO2 119 H 75 L VBG pH Sodium Potassium Chloride Carbon Dioxide BUN Creatinine Glucose POC Glucose Hemoglobin A1c Lactic Acid Calcium Phosphorus Magnesium Iron TIBC AST ALT Troponin T C-Reactive Protein Total Protein Albumin Triglycerides LDL Cholesterol Direct HDL Cholesterol Urine WBC (Auto) Vancomycin Trough Salicylates Acetaminophen % CD3 Cells % CD19 Cells Absolute CD19 Count Miscellaneous Test Crossmatch 08/23/18 08/24/18 08/24/18 Unknown 04:18 08:30 WBC 12.8 H RBC 2.24 L Hgb 7.0 L Hct 21.1 L RDW Plt Count Lymph % (Auto) [place] % (Auto) Lymph # [place] # Seg Neutrophils % Seg Neuts % (Manual) 93.0 H Lymphocytes % (Manual) 6.0 L Nucleated RBC % Seg Neutrophils # Seg Neutrophils # Man 11.9 H Lymphocytes # (Manual) 0.8 L D-Dimer POC ABG pH POC ABG pCO2 POC ABG pO2 78 L VBG pH Sodium Potassium Chloride 115.7 H Carbon Dioxide 21 L BUN 64 H Creatinine 2.0 H Glucose 149 H POC Glucose Hemoglobin A1c Lactic Acid Calcium 7.5 L Phosphorus Magnesium Iron TIBC AST ALT Troponin T C-Reactive Protein Total Protein 4.8 L Albumin 2.0 L Triglycerides LDL Cholesterol Direct HDL Cholesterol Urine WBC (Auto) Vancomycin Trough Salicylates Acetaminophen % CD3 Cells % CD19 Cells Absolute CD19 Count Miscellaneous Test Crossmatch 08/24/18 08/24/18 08/24/18 08:30 17:44 18:28 WBC RBC Hgb Hct RDW Plt Count Lymph % (Auto) [place] % (Auto) Lymph # [place] # Seg Neutrophils % Seg Neuts % (Manual) Lymphocytes % (Manual) Nucleated RBC % Seg Neutrophils # Seg Neutrophils # Man Lymphocytes # (Manual) D-Dimer POC ABG pH 7.474 H POC ABG pCO2 POC ABG pO2 61 L VBG pH Sodium Potassium Chloride 108.3 H Carbon Dioxide 20 L BUN 65 H Creatinine 2.0 H Glucose 167 H POC Glucose 164 H Hemoglobin A1c Lactic Acid Calcium 7.7 L Phosphorus Magnesium Iron TIBC AST ALT Troponin T C-Reactive Protein Total Protein 5.3 L Albumin 2.2 L Triglycerides LDL Cholesterol Direct HDL Cholesterol Urine WBC (Auto) Vancomycin Trough Salicylates Acetaminophen % CD3 Cells % CD19 Cells Absolute CD19 Count Miscellaneous Test Crossmatch 08/25/18 08/25/18 08/25/18 03:35 05:20 05:20 WBC RBC Hgb 6.7 L Hct 21.0 L RDW Plt Count Lymph % (Auto) [place] % (Auto) Lymph # [place] # Seg Neutrophils % Seg Neuts % (Manual) Lymphocytes % (Manual) Nucleated RBC % Seg Neutrophils # Seg Neutrophils # Man Lymphocytes # (Manual) D-Dimer POC ABG pH POC ABG pCO2 POC ABG pO2 79 L VBG pH Sodium Potassium Chloride Carbon Dioxide 21 L BUN 71 H Creatinine 3.1 H D Glucose 171 H POC Glucose Hemoglobin A1c Lactic Acid Calcium 7.5 L Phosphorus Magnesium Iron TIBC AST ALT Troponin T C-Reactive Protein Total Protein Albumin Triglycerides LDL Cholesterol Direct HDL Cholesterol Urine WBC (Auto) Vancomycin Trough Salicylates Acetaminophen % CD3 Cells % CD19 Cells Absolute CD19 Count Miscellaneous Test Crossmatch 08/25/18 08/25/18 08/25/18 05:20 08:52 12:42 WBC RBC Hgb Hct RDW Plt Count Lymph % (Auto) [place] % (Auto) Lymph # [place] # Seg Neutrophils % Seg Neuts % (Manual) Lymphocytes % (Manual) Nucleated RBC % Seg Neutrophils # Seg Neutrophils # Man Lymphocytes # (Manual) D-Dimer POC ABG pH POC ABG pCO2 POC ABG pO2 VBG pH Sodium Potassium Chloride Carbon Dioxide BUN Creatinine Glucose POC Glucose 166 H Hemoglobin A1c Lactic Acid Calcium Phosphorus Magnesium Iron TIBC AST ALT Troponin T C-Reactive Protein 5.00 H Total Protein Albumin Triglycerides LDL Cholesterol Direct HDL Cholesterol Urine WBC (Auto) Vancomycin Trough Salicylates Acetaminophen % CD3 Cells % CD19 Cells Absolute CD19 Count Miscellaneous Test Crossmatch See Detail 08/25/18 08/26/18 08/26/18 18:05 00:13 04:53 WBC RBC Hgb Hct RDW Plt Count Lymph % (Auto) [place] % (Auto) Lymph # [place] # Seg Neutrophils % Seg Neuts % (Manual) Lymphocytes % (Manual) Nucleated RBC % Seg Neutrophils # Seg Neutrophils # Man Lymphocytes # (Manual) D-Dimer POC ABG pH POC ABG pCO2 30.9 L POC ABG pO2 70 L VBG pH Sodium Potassium Chloride Carbon Dioxide BUN Creatinine Glucose POC Glucose 121 H 164 H Hemoglobin A1c Lactic Acid Calcium Phosphorus Magnesium Iron TIBC AST ALT Troponin T C-Reactive Protein Total Protein Albumin Triglycerides LDL Cholesterol Direct HDL Cholesterol Urine WBC (Auto) Vancomycin Trough Salicylates Acetaminophen % CD3 Cells % CD19 Cells Absolute CD19 Count Miscellaneous Test Crossmatch 08/26/18 08/26/18 08/26/18 05:42 06:00 06:00 WBC RBC 2.62 L Hgb 7.7 L Hct 23.0 L RDW 22.0 H Plt Count Lymph % (Auto) 6.3 L [place] % (Auto) Lymph # 0.7 L [place] # Seg Neutrophils % 88.1 H Seg Neuts % (Manual) Lymphocytes % (Manual) Nucleated RBC % Seg Neutrophils # 9.6 H Seg Neutrophils # Man Lymphocytes # (Manual) D-Dimer POC ABG pH POC ABG pCO2 POC ABG pO2 VBG pH Sodium Potassium Chloride Carbon Dioxide 21 L BUN 70 H Creatinine 3.3 H Glucose 146 H POC Glucose 149 H Hemoglobin A1c Lactic Acid Calcium 8.0 L Phosphorus Magnesium Iron TIBC AST ALT Troponin T C-Reactive Protein Total Protein Albumin Triglycerides LDL Cholesterol Direct HDL Cholesterol Urine WBC (Auto) Vancomycin Trough Salicylates Acetaminophen % CD3 Cells % CD19 Cells Absolute CD19 Count Miscellaneous Test Crossmatch 08/26/18 08/26/18 08/27/18 11:37 23:54 04:35 WBC RBC 2.50 L Hgb 7.6 L Hct 22.3 L RDW 21.8 H Plt Count Lymph % (Auto) 7.3 L [place] % (Auto) Lymph # 0.7 L [place] # Seg Neutrophils % 85.6 H Seg Neuts % (Manual) Lymphocytes % (Manual) Nucleated RBC % Seg Neutrophils # 8.6 H Seg Neutrophils # Man Lymphocytes # (Manual) D-Dimer POC ABG pH POC ABG pCO2 POC ABG pO2 VBG pH Sodium Potassium Chloride Carbon Dioxide BUN Creatinine Glucose POC Glucose 183 H 150 H Hemoglobin A1c Lactic Acid Calcium Phosphorus Magnesium Iron TIBC AST ALT Troponin T C-Reactive Protein Total Protein Albumin Triglycerides LDL Cholesterol Direct HDL Cholesterol Urine WBC (Auto) Vancomycin Trough Salicylates Acetaminophen % CD3 Cells % CD19 Cells Absolute CD19 Count Miscellaneous Test Crossmatch 08/27/18 08/27/18 08/28/18 04:35 12:17 04:43 WBC RBC Hgb Hct RDW Plt Count Lymph % (Auto) [place] % (Auto) Lymph # [place] # Seg Neutrophils % Seg Neuts % (Manual) Lymphocytes % (Manual) Nucleated RBC % Seg Neutrophils # Seg Neutrophils # Man Lymphocytes # (Manual) D-Dimer POC ABG pH POC ABG pCO2 32.1 L 33.8 L POC ABG pO2 68 L 78 L VBG pH Sodium Potassium Chloride Carbon Dioxide 19 L BUN 67 H Creatinine 2.9 H Glucose 155 H POC Glucose Hemoglobin A1c Lactic Acid Calcium Phosphorus 4.70 H Magnesium Iron TIBC AST ALT Troponin T C-Reactive Protein Total Protein Albumin Triglycerides LDL Cholesterol Direct HDL Cholesterol Urine WBC (Auto) Vancomycin Trough Salicylates Acetaminophen % CD3 Cells % CD19 Cells Absolute CD19 Count Miscellaneous Test Crossmatch 08/28/18 08/28/18 08/28/18 05:03 05:20 05:20 WBC RBC 2.43 L Hgb 7.4 L Hct 21.8 L RDW 20.8 H Plt Count Lymph % (Auto) 7.6 L [place] % (Auto) 8.7 H Lymph # 0.7 L [place] # Seg Neutrophils % 82.9 H Seg Neuts % (Manual) Lymphocytes % (Manual) Nucleated RBC % Seg Neutrophils # Seg Neutrophils # Man Lymphocytes # (Manual) D-Dimer POC ABG pH POC ABG pCO2 POC ABG pO2 VBG pH Sodium Potassium Chloride 107.8 H Carbon Dioxide 21 L BUN 55 H Creatinine 2.0 H Glucose 177 H POC Glucose 160 H Hemoglobin A1c Lactic Acid Calcium Phosphorus Magnesium Iron TIBC AST ALT Troponin T C-Reactive Protein Total Protein Albumin Triglycerides LDL Cholesterol Direct HDL Cholesterol Urine WBC (Auto) Vancomycin Trough Salicylates Acetaminophen % CD3 Cells % CD19 Cells Absolute CD19 Count Miscellaneous Test Crossmatch 08/28/18 08/28/18 08/28/18 12:18 18:58 22:31 WBC RBC Hgb Hct RDW Plt Count Lymph % (Auto) [place] % (Auto) Lymph # [place] # Seg Neutrophils % Seg Neuts % (Manual) Lymphocytes % (Manual) Nucleated RBC % Seg Neutrophils # Seg Neutrophils # Man Lymphocytes # (Manual) D-Dimer POC ABG pH POC ABG pCO2 34.4 L POC ABG pO2 67 L VBG pH Sodium Potassium Chloride Carbon Dioxide BUN Creatinine Glucose POC Glucose 164 H 149 H Hemoglobin A1c Lactic Acid Calcium Phosphorus Magnesium Iron TIBC AST ALT Troponin T C-Reactive Protein Total Protein Albumin Triglycerides LDL Cholesterol Direct HDL Cholesterol Urine WBC (Auto) Vancomycin Trough Salicylates Acetaminophen % CD3 Cells % CD19 Cells Absolute CD19 Count Miscellaneous Test Crossmatch 08/28/18 08/29/18 08/29/18 23:33 05:25 05:25 WBC RBC 2.30 L Hgb 7.0 L Hct 20.9 L RDW 21.0 H Plt Count Lymph % (Auto) 11.5 L [place] % (Auto) 9.2 H Lymph # 0.8 L [place] # Seg Neutrophils % 78.8 H Seg Neuts % (Manual) Lymphocytes % (Manual) Nucleated RBC % Seg Neutrophils # Seg Neutrophils # Man Lymphocytes # (Manual) D-Dimer POC ABG pH POC ABG pCO2 POC ABG pO2 VBG pH Sodium Potassium Chloride 111.1 H Carbon Dioxide BUN 55 H Creatinine 1.8 H Glucose 162 H POC Glucose 143 H Hemoglobin A1c Lactic Acid Calcium Phosphorus Magnesium Iron TIBC AST 46 H ALT < 5 L Troponin T C-Reactive Protein Total Protein 5.7 L Albumin 2.1 L Triglycerides LDL Cholesterol Direct HDL Cholesterol Urine WBC (Auto) Vancomycin Trough Salicylates Acetaminophen % CD3 Cells % CD19 Cells Absolute CD19 Count Miscellaneous Test Crossmatch 08/29/18 08/29/18 08/30/18 18:19 23:35 05:03 WBC RBC Hgb Hct RDW Plt Count Lymph % (Auto) [place] % (Auto) Lymph # [place] # Seg Neutrophils % Seg Neuts % (Manual) Lymphocytes % (Manual) Nucleated RBC % Seg Neutrophils # Seg Neutrophils # Man Lymphocytes # (Manual) D-Dimer POC ABG pH POC ABG pCO2 POC ABG pO2 VBG pH Sodium Potassium Chloride Carbon Dioxide BUN Creatinine Glucose POC Glucose 155 H 139 H 122 H Hemoglobin A1c Lactic Acid Calcium Phosphorus Magnesium Iron TIBC AST ALT Troponin T C-Reactive Protein Total Protein Albumin Triglycerides LDL Cholesterol Direct HDL Cholesterol Urine WBC (Auto) Vancomycin Trough Salicylates Acetaminophen % CD3 Cells % CD19 Cells Absolute CD19 Count Miscellaneous Test Crossmatch 08/30/18 08/30/18 08/30/18 09:33 09:33 09:54 WBC RBC 2.58 L Hgb 7.9 L Hct 23.5 L RDW 20.9 H Plt Count Lymph % (Auto) 8.0 L [place] % (Auto) 9.7 H Lymph # 0.8 L [place] # 1.0 H Seg Neutrophils % 82.1 H Seg Neuts % (Manual) Lymphocytes % (Manual) Nucleated RBC % Seg Neutrophils # 8.2 H Seg Neutrophils # Man Lymphocytes # (Manual) D-Dimer POC ABG pH POC ABG pCO2 POC ABG pO2 VBG pH Sodium 146 H Potassium Chloride 110.7 H Carbon Dioxide BUN 56 H Creatinine 1.9 H Glucose 145 H POC Glucose Hemoglobin A1c Lactic Acid Calcium Phosphorus 4.60 H Magnesium Iron TIBC AST ALT < 5 L Troponin T C-Reactive Protein Total Protein Albumin 2.7 L Triglycerides LDL Cholesterol Direct HDL Cholesterol Urine WBC (Auto) Vancomycin Trough Salicylates Acetaminophen % CD3 Cells % CD19 Cells Absolute CD19 Count Miscellaneous Test Flexitest 1 H Crossmatch 08/30/18 08/30/18 08/30/18 09:57 11:26 18:08 WBC RBC Hgb Hct RDW Plt Count Lymph % (Auto) [place] % (Auto) Lymph # [place] # Seg Neutrophils % Seg Neuts % (Manual) Lymphocytes % (Manual) Nucleated RBC % Seg Neutrophils # Seg Neutrophils # Man Lymphocytes # (Manual) D-Dimer POC ABG pH POC ABG pCO2 POC ABG pO2 VBG pH Sodium Potassium Chloride Carbon Dioxide BUN Creatinine Glucose POC Glucose 149 H 156 H Hemoglobin A1c Lactic Acid Calcium Phosphorus Magnesium Iron TIBC AST ALT Troponin T C-Reactive Protein Total Protein Albumin Triglycerides LDL Cholesterol Direct HDL Cholesterol Urine WBC (Auto) Vancomycin Trough Salicylates Acetaminophen % CD3 Cells % CD19 Cells Absolute CD19 Count Miscellaneous Test Flexitest 1 H Crossmatch 08/30/18 08/31/18 08/31/18 23:14 05:16 08:40 WBC RBC Hgb Hct RDW Plt Count Lymph % (Auto) [place] % (Auto) Lymph # [place] # Seg Neutrophils % Seg Neuts % (Manual) Lymphocytes % (Manual) Nucleated RBC % Seg Neutrophils # Seg Neutrophils # Man Lymphocytes # (Manual) D-Dimer POC ABG pH POC ABG pCO2 POC ABG pO2 VBG pH Sodium 151 H Potassium Chloride 113.8 H Carbon Dioxide BUN 45 H Creatinine Glucose 144 H POC Glucose 117 H 133 H Hemoglobin A1c Lactic Acid Calcium Phosphorus Magnesium Iron TIBC AST ALT Troponin T C-Reactive Protein Total Protein Albumin Triglycerides LDL Cholesterol Direct HDL Cholesterol Urine WBC (Auto) Vancomycin Trough Salicylates Acetaminophen % CD3 Cells % CD19 Cells Absolute CD19 Count Miscellaneous Test Crossmatch 08/31/18 09/01/18 09/01/18 23:46 04:45 04:45 WBC RBC 2.38 L Hgb 7.3 L Hct 22.1 L RDW 21.1 H Plt Count Lymph % (Auto) [place] % (Auto) Lymph # [place] # Seg Neutrophils % Seg Neuts % (Manual) 93.0 H Lymphocytes % (Manual) 4.0 L Nucleated RBC % Seg Neutrophils # Seg Neutrophils # Man 10.1 H Lymphocytes # (Manual) 0.4 L D-Dimer POC ABG pH POC ABG pCO2 POC ABG pO2 VBG pH Sodium 156 H Potassium 3.1 L Chloride 115.2 H Carbon Dioxide BUN 34 H Creatinine Glucose 125 H POC Glucose 124 H Hemoglobin A1c Lactic Acid Calcium Phosphorus Magnesium Iron TIBC AST ALT Troponin T C-Reactive Protein Total Protein Albumin Triglycerides LDL Cholesterol Direct HDL Cholesterol Urine WBC (Auto) Vancomycin Trough Salicylates Acetaminophen % CD3 Cells % CD19 Cells Absolute CD19 Count Miscellaneous Test Crossmatch 09/01/18 09/01/18 09/01/18 05:34 11:20 17:52 WBC RBC Hgb Hct RDW Plt Count Lymph % (Auto) [place] % (Auto) Lymph # [place] # Seg Neutrophils % Seg Neuts % (Manual) Lymphocytes % (Manual) Nucleated RBC % Seg Neutrophils # Seg Neutrophils # Man Lymphocytes # (Manual) D-Dimer POC ABG pH 7.553 H POC ABG pCO2 POC ABG pO2 74 L VBG pH Sodium Potassium Chloride Carbon Dioxide BUN Creatinine Glucose POC Glucose 128 H 146 H Hemoglobin A1c Lactic Acid Calcium Phosphorus Magnesium Iron TIBC AST ALT Troponin T C-Reactive Protein Total Protein Albumin Triglycerides LDL Cholesterol Direct HDL Cholesterol Urine WBC (Auto) Vancomycin Trough Salicylates Acetaminophen % CD3 Cells % CD19 Cells Absolute CD19 Count Miscellaneous Test Crossmatch 09/01/18 09/02/18 09/02/18 17:52 04:13 04:58 WBC 16.4 H RBC 2.64 L Hgb 7.9 L Hct 24.3 L RDW 20.8 H Plt Count Lymph % (Auto) [place] % (Auto) Lymph # [place] # Seg Neutrophils % Seg Neuts % (Manual) 96.0 H Lymphocytes % (Manual) 1.0 L Nucleated RBC % Seg Neutrophils # Seg Neutrophils # Man 15.7 H Lymphocytes # (Manual) 0.2 L D-Dimer POC ABG pH 7.488 H POC ABG pCO2 POC ABG pO2 63 L VBG pH Sodium Potassium Chloride Carbon Dioxide BUN Creatinine Glucose POC Glucose 143 H Hemoglobin A1c Lactic Acid Calcium Phosphorus Magnesium Iron TIBC AST ALT Troponin T C-Reactive Protein Total Protein Albumin Triglycerides LDL Cholesterol Direct HDL Cholesterol Urine WBC (Auto) Vancomycin Trough Salicylates Acetaminophen % CD3 Cells % CD19 Cells Absolute CD19 Count Miscellaneous Test Crossmatch 09/02/18 09/02/18 09/02/18 04:58 11:03 18:18 WBC RBC Hgb Hct RDW Plt Count Lymph % (Auto) [place] % (Auto) Lymph # [place] # Seg Neutrophils % Seg Neuts % (Manual) Lymphocytes % (Manual) Nucleated RBC % Seg Neutrophils # Seg Neutrophils # Man Lymphocytes # (Manual) D-Dimer POC ABG pH 7.344 L POC ABG pCO2 52.8 H POC ABG pO2 VBG pH Sodium 158 H Potassium 2.9 L* Chloride 115.7 H Carbon Dioxide BUN 27 H Creatinine 0.6 L Glucose 128 H POC Glucose 121 H Hemoglobin A1c Lactic Acid Calcium Phosphorus Magnesium 1.60 L Iron TIBC AST 64 H ALT Troponin T C-Reactive Protein Total Protein Albumin 2.6 L Triglycerides LDL Cholesterol Direct HDL Cholesterol Urine WBC (Auto) Vancomycin Trough Salicylates Acetaminophen % CD3 Cells % CD19 Cells Absolute CD19 Count Miscellaneous Test Crossmatch 09/02/18 09/03/18 09/03/18 23:06 03:36 04:25 WBC RBC 2.20 L Hgb 6.7 L Hct 20.9 L RDW 21.1 H Plt Count Lymph % (Auto) [place] % (Auto) Lymph # [place] # Seg Neutrophils % Seg Neuts % (Manual) 90.0 H Lymphocytes % (Manual) 5.0 L Nucleated RBC % Seg Neutrophils # Seg Neutrophils # Man 8.7 H Lymphocytes # (Manual) 0.5 L D-Dimer POC ABG pH POC ABG pCO2 POC ABG pO2 54 L VBG pH Sodium Potassium Chloride Carbon Dioxide BUN Creatinine Glucose POC Glucose 121 H Hemoglobin A1c Lactic Acid Calcium Phosphorus Magnesium Iron TIBC AST ALT Troponin T C-Reactive Protein Total Protein Albumin Triglycerides LDL Cholesterol Direct HDL Cholesterol Urine WBC (Auto) Vancomycin Trough Salicylates Acetaminophen % CD3 Cells % CD19 Cells Absolute CD19 Count Miscellaneous Test Crossmatch 09/03/18 09/03/18 09/03/18 04:25 05:45 10:24 WBC RBC Hgb Hct RDW Plt Count Lymph % (Auto) [place] % (Auto) Lymph # [place] # Seg Neutrophils % Seg Neuts % (Manual) Lymphocytes % (Manual) Nucleated RBC % Seg Neutrophils # Seg Neutrophils # Man Lymphocytes # (Manual) D-Dimer POC ABG pH POC ABG pCO2 POC ABG pO2 VBG pH Sodium 158 H Potassium 3.1 L Chloride 120.4 H Carbon Dioxide BUN 25 H Creatinine 0.6 L Glucose 127 H POC Glucose 178 H Hemoglobin A1c Lactic Acid Calcium 7.9 L Phosphorus Magnesium Iron TIBC AST ALT Troponin T C-Reactive Protein Total Protein 6.0 L Albumin 2.4 L Triglycerides LDL Cholesterol Direct HDL Cholesterol Urine WBC (Auto) Vancomycin Trough Salicylates Acetaminophen % CD3 Cells % CD19 Cells Absolute CD19 Count Miscellaneous Test Crossmatch See Detail 09/03/18 09/03/18 09/04/18 11:27 23:09 04:42 WBC RBC Hgb Hct RDW Plt Count Lymph % (Auto) [place] % (Auto) Lymph # [place] # Seg Neutrophils % Seg Neuts % (Manual) Lymphocytes % (Manual) Nucleated RBC % Seg Neutrophils # Seg Neutrophils # Man Lymphocytes # (Manual) D-Dimer POC ABG pH 7.293 L POC ABG pCO2 50.2 H POC ABG pO2 VBG pH Sodium Potassium Chloride Carbon Dioxide BUN Creatinine Glucose POC Glucose 107 H 139 H Hemoglobin A1c Lactic Acid Calcium Phosphorus Magnesium Iron TIBC AST ALT Troponin T C-Reactive Protein Total Protein Albumin Triglycerides LDL Cholesterol Direct HDL Cholesterol Urine WBC (Auto) Vancomycin Trough Salicylates Acetaminophen % CD3 Cells % CD19 Cells Absolute CD19 Count Miscellaneous Test Crossmatch 09/04/18 09/04/18 09/04/18 05:00 06:30 06:30 WBC RBC 2.32 L Hgb 7.0 L Hct 21.9 L RDW 20.2 H Plt Count Lymph % (Auto) [place] % (Auto) Lymph # [place] # Seg Neutrophils % 80.1 H Seg Neuts % (Manual) Lymphocytes % (Manual) Nucleated RBC % Seg Neutrophils # 8.2 H Seg Neutrophils # Man Lymphocytes # (Manual) D-Dimer POC ABG pH POC ABG pCO2 POC ABG pO2 VBG pH Sodium 150 H D Potassium Chloride 115.9 H Carbon Dioxide BUN 21 H Creatinine 0.6 L Glucose 125 H POC Glucose 154 H Hemoglobin A1c Lactic Acid Calcium 7.9 L Phosphorus Magnesium 1.50 L Iron TIBC AST ALT Troponin T C-Reactive Protein Total Protein Albumin Triglycerides LDL Cholesterol Direct HDL Cholesterol Urine WBC (Auto) Vancomycin Trough Salicylates Acetaminophen % CD3 Cells % CD19 Cells Absolute CD19 Count Miscellaneous Test Crossmatch 09/04/18 09/04/18 09/04/18 11:20 11:51 18:27 WBC RBC Hgb Hct RDW Plt Count Lymph % (Auto) [place] % (Auto) Lymph # [place] # Seg Neutrophils % Seg Neuts % (Manual) Lymphocytes % (Manual) Nucleated RBC % Seg Neutrophils # Seg Neutrophils # Man Lymphocytes # (Manual) D-Dimer POC ABG pH 7.244 L POC ABG pCO2 54.2 H POC ABG pO2 62 L VBG pH Sodium Potassium Chloride Carbon Dioxide BUN Creatinine Glucose POC Glucose 156 H 129 H Hemoglobin A1c Lactic Acid Calcium Phosphorus Magnesium Iron TIBC AST ALT Troponin T C-Reactive Protein Total Protein Albumin Triglycerides LDL Cholesterol Direct HDL Cholesterol Urine WBC (Auto) Vancomycin Trough Salicylates Acetaminophen % CD3 Cells % CD19 Cells Absolute CD19 Count Miscellaneous Test Crossmatch 09/05/18 09/05/18 09/05/18 03:46 04:00 04:00 WBC RBC 2.13 L Hgb 6.4 L Hct 20.1 L RDW 19.9 H Plt Count 117 L Lymph % (Auto) [place] % (Auto) Lymph # 0.9 L [place] # Seg Neutrophils % 81.7 H Seg Neuts % (Manual) Lymphocytes % (Manual) Nucleated RBC % Seg Neutrophils # Seg Neutrophils # Man Lymphocytes # (Manual) D-Dimer POC ABG pH 7.282 L POC ABG pCO2 57.3 H POC ABG pO2 124 H VBG pH Sodium Potassium Chloride 111.0 H Carbon Dioxide BUN 20 H Creatinine Glucose 130 H POC Glucose Hemoglobin A1c Lactic Acid Calcium 7.8 L Phosphorus Magnesium 1.60 L Iron TIBC AST ALT Troponin T C-Reactive Protein Total Protein Albumin Triglycerides LDL Cholesterol Direct HDL Cholesterol Urine WBC (Auto) Vancomycin Trough Salicylates Acetaminophen % CD3 Cells % CD19 Cells Absolute CD19 Count Miscellaneous Test Crossmatch 09/05/18 09/05/18 09/05/18 12:15 17:24 23:24 WBC RBC Hgb Hct RDW Plt Count Lymph % (Auto) [place] % (Auto) Lymph # [place] # Seg Neutrophils % Seg Neuts % (Manual) Lymphocytes % (Manual) Nucleated RBC % Seg Neutrophils # Seg Neutrophils # Man Lymphocytes # (Manual) D-Dimer POC ABG pH POC ABG pCO2 POC ABG pO2 VBG pH Sodium Potassium Chloride Carbon Dioxide BUN Creatinine Glucose POC Glucose 143 H 116 H 116 H Hemoglobin A1c Lactic Acid Calcium Phosphorus Magnesium Iron TIBC AST ALT Troponin T C-Reactive Protein Total Protein Albumin Triglycerides LDL Cholesterol Direct HDL Cholesterol Urine WBC (Auto) Vancomycin Trough Salicylates Acetaminophen % CD3 Cells % CD19 Cells Absolute CD19 Count Miscellaneous Test Crossmatch 09/06/18 09/06/18 09/06/18 03:33 04:20 04:20 WBC RBC 2.45 L Hgb 7.4 L Hct 23.0 L RDW 18.1 H Plt Count 99 L Lymph % (Auto) [place] % (Auto) Lymph # 1.0 L [place] # Seg Neutrophils % 78.0 H Seg Neuts % (Manual) Lymphocytes % (Manual) Nucleated RBC % Seg Neutrophils # Seg Neutrophils # Man Lymphocytes # (Manual) D-Dimer POC ABG pH 7.303 L POC ABG pCO2 49.2 H POC ABG pO2 73 L VBG pH Sodium Potassium Chloride 109.3 H Carbon Dioxide BUN 24 H Creatinine Glucose 108 H POC Glucose Hemoglobin A1c Lactic Acid Calcium 8.1 L Phosphorus Magnesium Iron TIBC AST ALT Troponin T C-Reactive Protein Total Protein Albumin Triglycerides LDL Cholesterol Direct HDL Cholesterol Urine WBC (Auto) Vancomycin Trough Salicylates Acetaminophen % CD3 Cells % CD19 Cells Absolute CD19 Count Miscellaneous Test Crossmatch 09/06/18 09/06/18 09/06/18 04:55 11:29 14:40 WBC RBC Hgb Hct RDW Plt Count Lymph % (Auto) [place] % (Auto) Lymph # [place] # Seg Neutrophils % Seg Neuts % (Manual) Lymphocytes % (Manual) Nucleated RBC % Seg Neutrophils # Seg Neutrophils # Man Lymphocytes # (Manual) D-Dimer POC ABG pH POC ABG pCO2 POC ABG pO2 VBG pH Sodium Potassium Chloride Carbon Dioxide BUN Creatinine Glucose POC Glucose 124 H 149 H Hemoglobin A1c Lactic Acid Calcium Phosphorus Magnesium Iron TIBC AST ALT Troponin T C-Reactive Protein Total Protein Albumin Triglycerides LDL Cholesterol Direct HDL Cholesterol Urine WBC (Auto) Vancomycin Trough 28.6 H Salicylates Acetaminophen % CD3 Cells % CD19 Cells Absolute CD19 Count Miscellaneous Test Crossmatch 09/06/18 09/06/18 09/07/18 17:43 20:08 00:39 WBC RBC Hgb Hct RDW Plt Count Lymph % (Auto) [place] % (Auto) Lymph # [place] # Seg Neutrophils % Seg Neuts % (Manual) Lymphocytes % (Manual) Nucleated RBC % Seg Neutrophils # Seg Neutrophils # Man Lymphocytes # (Manual) D-Dimer POC ABG pH POC ABG pCO2 POC ABG pO2 VBG pH Sodium Potassium Chloride Carbon Dioxide BUN Creatinine Glucose POC Glucose 138 H 118 H 131 H Hemoglobin A1c Lactic Acid Calcium Phosphorus Magnesium Iron TIBC AST ALT Troponin T C-Reactive Protein Total Protein Albumin Triglycerides LDL Cholesterol Direct HDL Cholesterol Urine WBC (Auto) Vancomycin Trough Salicylates Acetaminophen % CD3 Cells % CD19 Cells Absolute CD19 Count Miscellaneous Test Crossmatch 09/07/18 09/07/18 09/07/18 05:40 05:40 12:03 WBC RBC 2.40 L Hgb 7.3 L Hct 22.5 L RDW 17.8 H Plt Count 92 L Lymph % (Auto) [place] % (Auto) Lymph # [place] # Seg Neutrophils % Seg Neuts % (Manual) 80.0 H Lymphocytes % (Manual) Nucleated RBC % 1.0 H Seg Neutrophils # Seg Neutrophils # Man Lymphocytes # (Manual) 0.8 L D-Dimer POC ABG pH POC ABG pCO2 POC ABG pO2 VBG pH Sodium Potassium Chloride 109.8 H Carbon Dioxide BUN 26 H Creatinine Glucose 118 H POC Glucose 145 H Hemoglobin A1c Lactic Acid Calcium 8.0 L Phosphorus Magnesium Iron 26 L TIBC 150 L AST 88 H ALT Troponin T C-Reactive Protein Total Protein 5.8 L Albumin 2.1 L Triglycerides LDL Cholesterol Direct HDL Cholesterol Urine WBC (Auto) Vancomycin Trough Salicylates Acetaminophen % CD3 Cells % CD19 Cells Absolute CD19 Count Miscellaneous Test Crossmatch 09/07/18 09/07/18 09/08/18 17:39 23:21 05:48 WBC RBC Hgb Hct RDW Plt Count Lymph % (Auto) [place] % (Auto) Lymph # [place] # Seg Neutrophils % Seg Neuts % (Manual) Lymphocytes % (Manual) Nucleated RBC % Seg Neutrophils # Seg Neutrophils # Man Lymphocytes # (Manual) D-Dimer POC ABG pH POC ABG pCO2 POC ABG pO2 VBG pH Sodium Potassium Chloride Carbon Dioxide BUN Creatinine Glucose POC Glucose 128 H 136 H 129 H Hemoglobin A1c Lactic Acid Calcium Phosphorus Magnesium Iron TIBC AST ALT Troponin T C-Reactive Protein Total Protein Albumin Triglycerides LDL Cholesterol Direct HDL Cholesterol Urine WBC (Auto) Vancomycin Trough Salicylates Acetaminophen % CD3 Cells % CD19 Cells Absolute CD19 Count Miscellaneous Test Crossmatch 09/08/18 09/08/18 09/08/18 06:17 10:06 10:42 WBC RBC Hgb Hct RDW Plt Count Lymph % (Auto) [place] % (Auto) Lymph # [place] # Seg Neutrophils % Seg Neuts % (Manual) Lymphocytes % (Manual) Nucleated RBC % Seg Neutrophils # Seg Neutrophils # Man Lymphocytes # (Manual) D-Dimer POC ABG pH 7.292 L 7.276 L POC ABG pCO2 56.9 H 65.1 H POC ABG pO2 VBG pH Sodium 146 H Potassium Chloride 109.1 H Carbon Dioxide BUN 28 H Creatinine Glucose 165 H POC Glucose Hemoglobin A1c Lactic Acid Calcium Phosphorus Magnesium Iron TIBC AST ALT Troponin T C-Reactive Protein Total Protein Albumin Triglycerides LDL Cholesterol Direct HDL Cholesterol Urine WBC (Auto) Vancomycin Trough Salicylates Acetaminophen % CD3 Cells % CD19 Cells Absolute CD19 Count Miscellaneous Test Crossmatch 09/08/18 09/08/18 09/08/18 11:06 18:07 23:20 WBC RBC Hgb Hct RDW Plt Count Lymph % (Auto) [place] % (Auto) Lymph # [place] # Seg Neutrophils % Seg Neuts % (Manual) Lymphocytes % (Manual) Nucleated RBC % Seg Neutrophils # Seg Neutrophils # Man Lymphocytes # (Manual) D-Dimer POC ABG pH POC ABG pCO2 POC ABG pO2 VBG pH Sodium Potassium Chloride Carbon Dioxide BUN Creatinine Glucose POC Glucose 165 H 140 H 124 H Hemoglobin A1c Lactic Acid Calcium Phosphorus Magnesium Iron TIBC AST ALT Troponin T C-Reactive Protein Total Protein Albumin Triglycerides LDL Cholesterol Direct HDL Cholesterol Urine WBC (Auto) Vancomycin Trough Salicylates Acetaminophen % CD3 Cells % CD19 Cells Absolute CD19 Count Miscellaneous Test Crossmatch 09/09/18 09/09/18 09/09/18 05:04 08:39 08:39 WBC RBC 2.60 L Hgb 8.1 L Hct 24.6 L RDW 17.9 H Plt Count Lymph % (Auto) [place] % (Auto) Lymph # [place] # Seg Neutrophils % Seg Neuts % (Manual) Lymphocytes % (Manual) Nucleated RBC % Seg Neutrophils # Seg Neutrophils # Man Lymphocytes # (Manual) D-Dimer POC ABG pH POC ABG pCO2 POC ABG pO2 VBG pH Sodium Potassium Chloride Carbon Dioxide BUN 32 H Creatinine Glucose 150 H POC Glucose 168 H Hemoglobin A1c Lactic Acid Calcium Phosphorus Magnesium Iron TIBC AST ALT Troponin T C-Reactive Protein Total Protein Albumin Triglycerides LDL Cholesterol Direct HDL Cholesterol Urine WBC (Auto) Vancomycin Trough Salicylates Acetaminophen % CD3 Cells % CD19 Cells Absolute CD19 Count Miscellaneous Test Crossmatch 09/09/18 09/10/18 09/10/18 12:41 04:20 04:20 WBC RBC 2.49 L Hgb 7.7 L Hct 23.4 L RDW 18.0 H Plt Count Lymph % (Auto) 8.2 L [place] % (Auto) Lymph # 0.7 L [place] # Seg Neutrophils % 87.7 H Seg Neuts % (Manual) Lymphocytes % (Manual) Nucleated RBC % Seg Neutrophils # Seg Neutrophils # Man Lymphocytes # (Manual) D-Dimer POC ABG pH POC ABG pCO2 POC ABG pO2 VBG pH Sodium Potassium Chloride Carbon Dioxide 31 H BUN 39 H Creatinine Glucose 183 H POC Glucose 150 H Hemoglobin A1c Lactic Acid Calcium Phosphorus Magnesium Iron TIBC AST 85 H ALT 58 H Troponin T C-Reactive Protein Total Protein Albumin 2.5 L Triglycerides LDL Cholesterol Direct HDL Cholesterol Urine WBC (Auto) Vancomycin Trough Salicylates Acetaminophen % CD3 Cells % CD19 Cells Absolute CD19 Count Miscellaneous Test Crossmatch 09/10/18 09/10/18 09/10/18 04:39 05:06 11:17 WBC RBC Hgb Hct RDW Plt Count Lymph % (Auto) [place] % (Auto) Lymph # [place] # Seg Neutrophils % Seg Neuts % (Manual) Lymphocytes % (Manual) Nucleated RBC % Seg Neutrophils # Seg Neutrophils # Man Lymphocytes # (Manual) D-Dimer POC ABG pH POC ABG pCO2 51.4 H POC ABG pO2 VBG pH Sodium Potassium Chloride Carbon Dioxide BUN Creatinine Glucose POC Glucose 185 H 159 H Hemoglobin A1c Lactic Acid Calcium Phosphorus Magnesium Iron TIBC AST ALT Troponin T C-Reactive Protein Total Protein Albumin Triglycerides LDL Cholesterol Direct HDL Cholesterol Urine WBC (Auto) Vancomycin Trough Salicylates Acetaminophen % CD3 Cells % CD19 Cells Absolute CD19 Count Miscellaneous Test Crossmatch 09/10/18 09/11/18 09/11/18 16:57 00:17 01:10 WBC RBC Hgb Hct RDW Plt Count Lymph % (Auto) [place] % (Auto) Lymph # [place] # Seg Neutrophils % Seg Neuts % (Manual) Lymphocytes % (Manual) Nucleated RBC % Seg Neutrophils # Seg Neutrophils # Man Lymphocytes # (Manual) D-Dimer POC ABG pH POC ABG pCO2 POC ABG pO2 VBG pH Sodium Potassium Chloride Carbon Dioxide 34 H BUN 44 H Creatinine Glucose 154 H POC Glucose 177 H 163 H Hemoglobin A1c Lactic Acid Calcium Phosphorus Magnesium Iron TIBC AST 86 H ALT 68 H Troponin T C-Reactive Protein Total Protein Albumin 2.6 L Triglycerides LDL Cholesterol Direct HDL Cholesterol Urine WBC (Auto) Vancomycin Trough Salicylates Acetaminophen % CD3 Cells % CD19 Cells Absolute CD19 Count Miscellaneous Test Crossmatch 09/11/18 09/11/18 09/11/18 01:10 06:03 09:00 WBC 13.7 H RBC 2.61 L Hgb 8.0 L Hct 24.6 L RDW 19.1 H Plt Count Lymph % (Auto) 6.1 L [place] % (Auto) Lymph # 0.8 L [place] # Seg Neutrophils % 87.7 H Seg Neuts % (Manual) Lymphocytes % (Manual) Nucleated RBC % Seg Neutrophils # 12.0 H Seg Neutrophils # Man Lymphocytes # (Manual) D-Dimer POC ABG pH POC ABG pCO2 POC ABG pO2 VBG pH Sodium Potassium Chloride Carbon Dioxide 33 H BUN 45 H Creatinine Glucose 147 H POC Glucose 180 H Hemoglobin A1c Lactic Acid Calcium Phosphorus Magnesium Iron TIBC AST ALT Troponin T C-Reactive Protein Total Protein Albumin Triglycerides LDL Cholesterol Direct HDL Cholesterol Urine WBC (Auto) Vancomycin Trough Salicylates Acetaminophen % CD3 Cells % CD19 Cells Absolute CD19 Count Miscellaneous Test Crossmatch 09/11/18 09/11/18 09/11/18 11:14 11:31 17:11 WBC RBC Hgb Hct RDW Plt Count Lymph % (Auto) [place] % (Auto) Lymph # [place] # Seg Neutrophils % Seg Neuts % (Manual) Lymphocytes % (Manual) Nucleated RBC % Seg Neutrophils # Seg Neutrophils # Man Lymphocytes # (Manual) D-Dimer POC ABG pH 7.498 H POC ABG pCO2 46.3 H POC ABG pO2 VBG pH Sodium Potassium Chloride Carbon Dioxide BUN Creatinine Glucose POC Glucose 163 H 202 H Hemoglobin A1c Lactic Acid Calcium Phosphorus Magnesium Iron TIBC AST ALT Troponin T C-Reactive Protein Total Protein Albumin Triglycerides LDL Cholesterol Direct HDL Cholesterol Urine WBC (Auto) Vancomycin Trough Salicylates Acetaminophen % CD3 Cells % CD19 Cells Absolute CD19 Count Miscellaneous Test Crossmatch 09/11/18 09/12/18 09/12/18 23:49 03:16 05:30 WBC RBC 2.36 L Hgb 7.3 L Hct 22.3 L RDW 18.4 H Plt Count Lymph % (Auto) 13.0 L Lyon % (Auto) 9.3 H Lymph # 1.1 L [place] # Seg Neutrophils % 77.5 H Seg Neuts % (Manual) Lymphocytes % (Manual) Nucleated RBC % Seg Neutrophils # Seg Neutrophils # Man Lymphocytes # (Manual) D-Dimer POC ABG pH 7.517 H POC ABG pCO2 48.8 H POC ABG pO2 VBG pH Sodium Potassium Chloride Carbon Dioxide BUN Creatinine Glucose POC Glucose 163 H Hemoglobin A1c Lactic Acid Calcium Phosphorus Magnesium Iron TIBC AST ALT Troponin T C-Reactive Protein Total Protein Albumin Triglycerides LDL Cholesterol Direct HDL Cholesterol Urine WBC (Auto) Vancomycin Trough Salicylates Acetaminophen % CD3 Cells % CD19 Cells Absolute CD19 Count Miscellaneous Test Crossmatch 09/12/18 09/12/18 09/12/18 05:30 06:07 11:36 WBC RBC Hgb Hct RDW Plt Count Lymph % (Auto) Lyon % (Auto) Lymph # [place] # Seg Neutrophils % Seg Neuts % (Manual) Lymphocytes % (Manual) Nucleated RBC % Seg Neutrophils # Seg Neutrophils # Man Lymphocytes # (Manual) D-Dimer POC ABG pH POC ABG pCO2 POC ABG pO2 VBG pH Sodium 148 H Potassium Chloride Carbon Dioxide 36 H BUN 46 H Creatinine Glucose 152 H POC Glucose 172 H 212 H Hemoglobin A1c Lactic Acid Calcium Phosphorus Magnesium Iron TIBC AST ALT Troponin T C-Reactive Protein Total Protein Albumin Triglycerides LDL Cholesterol Direct HDL Cholesterol Urine WBC (Auto) Vancomycin Trough Salicylates Acetaminophen % CD3 Cells % CD19 Cells Absolute CD19 Count Miscellaneous Test Crossmatch 09/12/18 09/12/18 09/13/18 18:02 23:19 03:55 WBC RBC Hgb Hct RDW Plt Count Lymph % (Auto) Lyon % (Auto) Lymph # [place] # Seg Neutrophils % Seg Neuts % (Manual) Lymphocytes % (Manual) Nucleated RBC % Seg Neutrophils # Seg Neutrophils # Man Lymphocytes # (Manual) D-Dimer POC ABG pH 7.520 H POC ABG pCO2 48.0 H POC ABG pO2 58 L VBG pH Sodium Potassium Chloride Carbon Dioxide BUN Creatinine Glucose POC Glucose 142 H 161 H Hemoglobin A1c Lactic Acid Calcium Phosphorus Magnesium Iron TIBC AST ALT Troponin T C-Reactive Protein Total Protein Albumin Triglycerides LDL Cholesterol Direct HDL Cholesterol Urine WBC (Auto) Vancomycin Trough Salicylates Acetaminophen % CD3 Cells % CD19 Cells Absolute CD19 Count Miscellaneous Test Crossmatch 09/13/18 09/13/18 09/13/18 05:11 05:25 05:25 WBC RBC 2.38 L Hgb 7.6 L Hct 22.4 L RDW 18.6 H Plt Count Lymph % (Auto) Lyon % (Auto) Lymph # [place] # Seg Neutrophils % Seg Neuts % (Manual) Lymphocytes % (Manual) Nucleated RBC % Seg Neutrophils # Seg Neutrophils # Man Lymphocytes # (Manual) D-Dimer POC ABG pH POC ABG pCO2 POC ABG pO2 VBG pH Sodium Potassium 3.2 L Chloride 97.5 L Carbon Dioxide 38 H BUN 38 H Creatinine 0.6 L Glucose 120 H POC Glucose 139 H Hemoglobin A1c Lactic Acid Calcium 8.1 L Phosphorus Magnesium Iron TIBC AST 120 H ALT 124 H Troponin T C-Reactive Protein Total Protein 5.9 L Albumin 2.6 L Triglycerides LDL Cholesterol Direct HDL Cholesterol Urine WBC (Auto) Vancomycin Trough Salicylates Acetaminophen % CD3 Cells % CD19 Cells Absolute CD19 Count Miscellaneous Test Crossmatch 09/13/18 09/13/18 09/13/18 11:31 17:46 23:23 WBC RBC Hgb Hct RDW Plt Count Lymph % (Auto) Lyon % (Auto) Lymph # [place] # Seg Neutrophils % Seg Neuts % (Manual) Lymphocytes % (Manual) Nucleated RBC % Seg Neutrophils # Seg Neutrophils # Man Lymphocytes # (Manual) D-Dimer POC ABG pH POC ABG pCO2 POC ABG pO2 VBG pH Sodium Potassium Chloride Carbon Dioxide BUN Creatinine Glucose POC Glucose 160 H 145 H 135 H Hemoglobin A1c Lactic Acid Calcium Phosphorus Magnesium Iron TIBC AST ALT Troponin T C-Reactive Protein Total Protein Albumin Triglycerides LDL Cholesterol Direct HDL Cholesterol Urine WBC (Auto) Vancomycin Trough Salicylates Acetaminophen % CD3 Cells % CD19 Cells Absolute CD19 Count Miscellaneous Test Crossmatch 09/14/18 09/14/18 09/14/18 03:56 04:55 04:55 WBC RBC 2.28 L Hgb 7.1 L Hct 21.4 L RDW 18.2 H Plt Count Lymph % (Auto) Lyon % (Auto) Lymph # [place] # Seg Neutrophils % 76.4 H Seg Neuts % (Manual) Lymphocytes % (Manual) Nucleated RBC % Seg Neutrophils # Seg Neutrophils # Man Lymphocytes # (Manual) D-Dimer POC ABG pH 7.503 H POC ABG pCO2 49.1 H POC ABG pO2 79 L VBG pH Sodium Potassium Chloride 97.7 L Carbon Dioxide 35 H BUN 32 H Creatinine 0.6 L Glucose 114 H POC Glucose Hemoglobin A1c Lactic Acid Calcium Phosphorus Magnesium Iron TIBC AST 60 H ALT 88 H Troponin T C-Reactive Protein Total Protein 5.6 L Albumin 2.2 L Triglycerides LDL Cholesterol Direct HDL Cholesterol Urine WBC (Auto) Vancomycin Trough Salicylates Acetaminophen % CD3 Cells % CD19 Cells Absolute CD19 Count Miscellaneous Test Crossmatch 09/14/18 09/14/18 09/14/18 05:14 12:00 12:27 WBC RBC Hgb Hct RDW Plt Count Lymph % (Auto) Lyon % (Auto) Lymph # [place] # Seg Neutrophils % Seg Neuts % (Manual) Lymphocytes % (Manual) Nucleated RBC % Seg Neutrophils # Seg Neutrophils # Man Lymphocytes # (Manual) D-Dimer POC ABG pH POC ABG pCO2 POC ABG pO2 VBG pH Sodium Potassium Chloride Carbon Dioxide BUN Creatinine Glucose POC Glucose 115 H 125 H Hemoglobin A1c Lactic Acid Calcium Phosphorus Magnesium Iron TIBC AST ALT Troponin T C-Reactive Protein Total Protein Albumin Triglycerides LDL Cholesterol Direct HDL Cholesterol Urine WBC (Auto) Vancomycin Trough Salicylates Acetaminophen % CD3 Cells % CD19 Cells Absolute CD19 Count Miscellaneous Test Crossmatch See Detail 09/14/18 09/15/18 09/15/18 17:54 03:49 04:10 WBC RBC 2.46 L Hgb 7.7 L Hct 23.0 L RDW 18.6 H Plt Count Lymph % (Auto) Lyon % (Auto) Lymph # 1.1 L [place] # Seg Neutrophils % 74.2 H Seg Neuts % (Manual) Lymphocytes % (Manual) Nucleated RBC % Seg Neutrophils # Seg Neutrophils # Man Lymphocytes # (Manual) D-Dimer POC ABG pH POC ABG pCO2 58.2 H POC ABG pO2 VBG pH Sodium Potassium Chloride Carbon Dioxide BUN Creatinine Glucose POC Glucose 138 H Hemoglobin A1c Lactic Acid Calcium Phosphorus Magnesium Iron TIBC AST ALT Troponin T C-Reactive Protein Total Protein Albumin Triglycerides LDL Cholesterol Direct HDL Cholesterol Urine WBC (Auto) Vancomycin Trough Salicylates Acetaminophen % CD3 Cells % CD19 Cells Absolute CD19 Count Miscellaneous Test Crossmatch 09/15/18 04:10 WBC RBC Hgb Hct RDW Plt Count Lymph % (Auto) [place] % (Auto) Lymph # [place] # Seg Neutrophils % Seg Neuts % (Manual) Lymphocytes % (Manual) Nucleated RBC % Seg Neutrophils # Seg Neutrophils # Man Lymphocytes # (Manual) D-Dimer POC ABG pH POC ABG pCO2 POC ABG pO2 VBG pH Sodium Potassium Chloride Carbon Dioxide 35 H BUN 21 H Creatinine Glucose POC Glucose Hemoglobin A1c Lactic Acid Calcium 7.9 L Phosphorus Magnesium Iron TIBC AST ALT Troponin T C-Reactive Protein Total Protein Albumin Triglycerides LDL Cholesterol Direct HDL Cholesterol Urine WBC (Auto) Vancomycin Trough Salicylates Acetaminophen % CD3 Cells % CD19 Cells Absolute CD19 Count Miscellaneous Test Crossmatch Allied health notes reviewed: RT (Wean down FIO2 to 60% then start weaning PEEP)
--- NOTE | 2018-09-15 11:24 | Event Note ---
Date: 09/15/18 Reviewed consult for G tube placement. 68 year old female who needs G tube placement and tracheostomy placement. Unfortunately, PEG could not be performed due to inability to transilluminate the stomach. Unfortunately, this will also likely preclude patient from radiologically placed G tube as the radiologic equivalent of transillumination (fluoroscopy of the gastric bubble). CT of the abdomen and pelvis without contrast will be obtained without contrast for evaluation of GI anatomy.
--- NOTE | 2018-09-15 11:31 | Progress Note ---
Assessment and Plan /Acute hypoxic hypercapnic respiratory failure; extubated 08/29/18 Re Intubated 09/02/18, vent dependent s/p trach on 09/14/18 Status post bronchoscopy, BAL negative cont nebulizers, pulmonary following /Dysphagia - cannot be placed PEG as could not be transilluminated stomach on EGD - Now planned to get PEG done by IR, cont TF with dobhoff /Thrombocytopenia: Platelet count is Stable Lovenox changed to Arixtra /Anemia: s/p transfusion[4 PRBC] Stool for occult blood x 2 negative, hematology following will transfuse additional unit -Recent EGD at [facility] 08/08/2018 revealing irregular Z line, gastritis and small hiatal hernia - Recent colonoscopy at [facility] 08/08/2018 revealing sigmoid polyp, transverse colon polyps, inflamed hemorrhoids and diverticulosis /Febrile illness; resolved, likely from PNA/sepsis /Hypomagnesemia; Hypernatremia; resolved, /Bileral lower extremity DVT; anticoagulation with arixtra CTA chest negative for PE /Sepsis; due to aspiration pneumonia ; s/p micafungin, meropenem and Vanco per ID Monitor off antibiotics /Hypertension; continue current antihypertensives /Severe malnutrition/hypoalbuminemia; Dietitian following, On TF /Acute kidney injury; probably secondary to ATN, Resolved, /Acute systolic congestive heart failure; EF 25-30%, Cardio following, monitor ins/os Previous echo 03/30/2016 at [facility] revealed normal LVEF Previous stress MPI 03/29/2016 at [facility] revealed no ischemia /Elevated Transaminases; resolved /-DVT prophylaxis; on full dose arixtra, on hold now for possible trach/peg tomorrow Consults and recommendations noted and appreciated Plan of care reviewed with the patient's nurse The high probability of a clinically significant, sudden or life threatening deterioration of the [respiratory, cardiology, ID, renal and metabolic] system(s) required my full and direct attention, intervention and personal management. The aggregate critical care time was [32] minutes. This time is in addition to time spent performing reported procedures but includes the following: [x] Data Review and interpretation [x] Patient assessment and monitoring of vital signs [x] Documentation [x] Medication orders and management Plan of care is reviewed with the patient's nurse Brief History: 68-year-old female patient with history of COPD, arthritis s/p C-spine and lumbar spine surgery, Chronic pain syndrome who was found unconscious in her feces and vomitus, patients family was in [place] for a golf tournament. Patient was brought to the emergency room noted to be severely hypoxic and tachypneic, promptly intubated placed on ventilatory support and admitted to ICU patient was also noted to have possible aspiration pneumonia, completed treatment recommended by ID .currently monitoring of antibiotics . patient also had acute gastroenteritis acute kidney injury nonspecific elevation of troponins as well as septic shock evaluated by multiple specialties successfully weaned and extubated on 08/29/2018 however patient again went into acute respiratory failure requiring reintubation on 09/02/2018, Since then patient is vent dependent, plan for trach and PEG and placement. She is also being treated for acute b/l DVT diagnosed following admission while she was on DVT Px. s/p 4units of PRBC transfusion for anemia, no acute source of active bleeding so far. Hospitalist Physical General appearance: Present: no acute distress, well-nourished, obese, other (on vent with trach) - EENT Eyes: Present: PERRL, EOM intact - Neck Neck: Present: supple, trach on place - Respiratory Respiratory effort: normal Respiratory: bilateral: diminished, rhonchi, negative: rales, wheezing - Cardiovascular Rhythm: regular Heart Sounds: Present: S1 & S2 - Extremities Extremities: no ischemia, No edema - Abdominal General gastrointestinal: soft, non-tender, non-distended, normal bowel sounds - Integumentary Integumentary: Present: clear, warm - Psychiatric Psychiatric: cooperative, other (on vent) - Neurologic Neurologic: move extremities unpurposefull Subjective Date of service: 09/15/18 Principal diagnosis: anemia Interval history: Patient seen and examined medical records reviewed Patient remains intubated on ventilator support Alert and awake not in acute distress Vital signs noted, no acute issue overnight Patient's is at the bedside - updated Objective - Constitutional Vitals: Vital Signs - 12hr 09/14/18 09/15/18 09/15/18 23:45 00:00 00:30 Temperature 99.2 F Pulse Rate 70 63 67 Pulse Rate [ Anterior Bilateral Throughout] Pulse Rate [ 69 From Monitor] Respiratory 15 13 Rate Respiratory Rate [Anterior Bilateral Throughout] Respiratory Rate [ Generalized] Blood Pressure 109/46 112/45 106/44 O2 Sat by Pulse 99 99 100 Oximetry O2 Sat by Pulse Oximetry [ Assessment] 09/15/18 09/15/18 09/15/18 01:00 01:30 02:01 Temperature Pulse Rate 71 64 65 Pulse Rate [ Anterior Bilateral Throughout] Pulse Rate [ From Monitor] Respiratory 11 L 13 11 L Rate Respiratory Rate [Anterior Bilateral Throughout] Respiratory Rate [ Generalized] Blood Pressure 109/45 112/46 111/42 O2 Sat by Pulse 99 99 Oximetry O2 Sat by Pulse Oximetry [ Assessment] 09/15/18 09/15/18 09/15/18 02:30 03:00 03:30 Temperature Pulse Rate 63 63 60 Pulse Rate [ Anterior Bilateral Throughout] Pulse Rate [ From Monitor] Respiratory 10 L 13 12 Rate Respiratory Rate [Anterior Bilateral Throughout] Respiratory Rate [ Generalized] Blood Pressure 96/46 100/37 103/39 O2 Sat by Pulse 97 98 99 Oximetry O2 Sat by Pulse Oximetry [ Assessment] 09/15/18 09/15/18 09/15/18 03:46 03:47 04:00 Temperature 98.2 F Pulse Rate 62 65 Pulse Rate [ Anterior Bilateral Throughout] Pulse Rate [ 63 From Monitor] Respiratory 14 Rate Respiratory Rate [Anterior Bilateral Throughout] Respiratory Rate [ Generalized] Blood Pressure 103/39 O2 Sat by Pulse 98 100 Oximetry O2 Sat by Pulse 100 Oximetry [ Assessment] 09/15/18 09/15/18 09/15/18 04:01 04:30 05:01 Temperature Pulse Rate 62 62 73 Pulse Rate [ Anterior Bilateral Throughout] Pulse Rate [ From Monitor] Respiratory 13 12 15 Rate Respiratory Rate [Anterior Bilateral Throughout] Respiratory Rate [ Generalized] Blood Pressure 103/39 102/38 109/43 O2 Sat by Pulse 95 93 97 Oximetry O2 Sat by Pulse Oximetry [ Assessment] 09/15/18 09/15/18 09/15/18 05:30 05:31 06:01 Temperature Pulse Rate 64 64 68 Pulse Rate [ Anterior Bilateral Throughout] Pulse Rate [ From Monitor] Respiratory 13 13 Rate Respiratory Rate [Anterior Bilateral Throughout] Respiratory Rate [ Generalized] Blood Pressure 96/42 96/42 108/38 O2 Sat by Pulse 97 94 Oximetry O2 Sat by Pulse Oximetry [ Assessment] 09/15/18 09/15/18 09/15/18 06:31 07:01 07:30 Temperature Pulse Rate 67 74 73 Pulse Rate [ Anterior Bilateral Throughout] Pulse Rate [ From Monitor] Respiratory 17 22 14 Rate Respiratory Rate [Anterior Bilateral Throughout] Respiratory Rate [ Generalized] Blood Pressure 106/44 116/59 110/43 O2 Sat by Pulse 95 95 94 Oximetry O2 Sat by Pulse Oximetry [ Assessment] 09/15/18 09/15/18 09/15/18 08:00 08:01 08:02 Temperature 99.5 F Pulse Rate 64 66 Pulse Rate [ 68 Anterior Bilateral Throughout] Pulse Rate [ 66 From Monitor] Respiratory 14 Rate Respiratory 17 Rate [Anterior Bilateral Throughout] Respiratory 17 Rate [ Generalized] Blood Pressure 91/46 91/46 O2 Sat by Pulse 95 96 Oximetry O2 Sat by Pulse 96 Oximetry [ Assessment] 09/15/18 09/15/18 09/15/18 08:30 08:39 08:43 Temperature Pulse Rate 58 L 66 Pulse Rate [ 66 Anterior Bilateral Throughout] Pulse Rate [ From Monitor] Respiratory 14 11 L Rate Respiratory 17 Rate [Anterior Bilateral Throughout] Respiratory Rate [ Generalized] Blood Pressure 99/45 O2 Sat by Pulse 96 Oximetry O2 Sat by Pulse Oximetry [ Assessment] 09/15/18 09/15/18 09/15/18 09:00 09:30 09:56 Temperature Pulse Rate 71 64 70 Pulse Rate [ Anterior Bilateral Throughout] Pulse Rate [ From Monitor] Respiratory 15 13 Rate Respiratory Rate [Anterior Bilateral Throughout] Respiratory Rate [ Generalized] Blood Pressure 118/46 114/41 112/44 O2 Sat by Pulse 95 95 Oximetry O2 Sat by Pulse Oximetry [ Assessment] 09/15/18 09/15/18 09/15/18 10:00 10:30 11:00 Temperature Pulse Rate 72 68 71 Pulse Rate [ Anterior Bilateral Throughout] Pulse Rate [ From Monitor] Respiratory 17 14 12 Rate Respiratory Rate [Anterior Bilateral Throughout] Respiratory Rate [ Generalized] Blood Pressure 112/42 102/32 99/39 O2 Sat by Pulse 95 96 97 Oximetry O2 Sat by Pulse Oximetry [ Assessment] - Labs CBC & Chem 7: 09/16/18 11:30 09/16/18 11:30 Labs: Abnormal lab results 09/14/18 09/14/18 09/14/18 Range/Units 12:00 12:27 17:54 RBC (3.65-5.03) M/mm3 Hgb (10.1-14.3) gm/dl Hct (30.3-42.9) % RDW (13.2-15.2) % Lymph # (1.2-5.4) K/mm3 Seg Neutrophils % (40.0-70.0) % POC ABG pCO2 (35-45) Carbon Dioxide (22-30) mmol/L BUN (7-17) mg/dL POC Glucose 125 H 138 H (70-105) Calcium (8.4-10.2) mg/dL Crossmatch See Detail 09/15/18 09/15/18 09/15/18 Range/Units 03:49 04:10 04:10 RBC 2.46 L (3.65-5.03) M/mm3 Hgb 7.7 L (10.1-14.3) gm/dl Hct 23.0 L (30.3-42.9) % RDW 18.6 H (13.2-15.2) % Lymph # 1.1 L (1.2-5.4) K/mm3 Seg Neutrophils % 74.2 H (40.0-70.0) % POC ABG pCO2 58.2 H (35-45) Carbon Dioxide 35 H (22-30) mmol/L BUN 21 H (7-17) mg/dL POC Glucose (70-105) Calcium 7.9 L (8.4-10.2) mg/dL Crossmatch
--- NOTE | 2018-09-15 11:52 | Progress Note ---
Assessment and Plan 68 yo F s/p fiberoptic bronchoscopy with tracheostomy placement, POD 1 for VDRF Plan; 1. Could not transilluminate stomach on EGD and PEG placement not done. IR consulted - CT scan A/P pending to evaluate intraabdominal anatomy 2. resume TF when ok with IR 3. resume arixtra when ok with IR 4. may remove tracheostomy sutures on 09/19 5. vent management per critical care team Will s/o Thank you, please call with questions Subjective Date of service: 09/15/18 Narrative: Pt seen and examined. No overnight events Objective Vital Signs - 12hr 09/15/18 09/15/18 09/15/18 00:00 00:30 01:00 Temperature 99.2 F Pulse Rate 63 67 71 Pulse Rate [ Anterior Bilateral Throughout] Pulse Rate [ 69 From Monitor] Respiratory 15 13 11 L Rate Respiratory Rate [Anterior Bilateral Throughout] Respiratory Rate [ Generalized] Blood Pressure 112/45 106/44 109/45 O2 Sat by Pulse 99 100 99 Oximetry O2 Sat by Pulse Oximetry [ Assessment] 09/15/18 09/15/18 09/15/18 01:30 02:01 02:30 Temperature Pulse Rate 64 65 63 Pulse Rate [ Anterior Bilateral Throughout] Pulse Rate [ From Monitor] Respiratory 13 11 L 10 L Rate Respiratory Rate [Anterior Bilateral Throughout] Respiratory Rate [ Generalized] Blood Pressure 112/46 111/42 96/46 O2 Sat by Pulse 99 97 Oximetry O2 Sat by Pulse Oximetry [ Assessment] 09/15/18 09/15/18 09/15/18 03:00 03:30 03:46 Temperature Pulse Rate 63 60 62 Pulse Rate [ Anterior Bilateral Throughout] Pulse Rate [ From Monitor] Respiratory 13 12 Rate Respiratory Rate [Anterior Bilateral Throughout] Respiratory Rate [ Generalized] Blood Pressure 100/37 103/39 103/39 O2 Sat by Pulse 98 99 98 Oximetry O2 Sat by Pulse Oximetry [ Assessment] 09/15/18 09/15/18 09/15/18 03:47 04:00 04:01 Temperature 98.2 F Pulse Rate 65 62 Pulse Rate [ Anterior Bilateral Throughout] Pulse Rate [ 63 From Monitor] Respiratory 14 13 Rate Respiratory Rate [Anterior Bilateral Throughout] Respiratory Rate [ Generalized] Blood Pressure 103/39 O2 Sat by Pulse 100 95 Oximetry O2 Sat by Pulse 100 Oximetry [ Assessment] 09/15/18 09/15/18 09/15/18 04:30 05:01 05:30 Temperature Pulse Rate 62 73 64 Pulse Rate [ Anterior Bilateral Throughout] Pulse Rate [ From Monitor] Respiratory 12 15 13 Rate Respiratory Rate [Anterior Bilateral Throughout] Respiratory Rate [ Generalized] Blood Pressure 102/38 109/43 96/42 O2 Sat by Pulse 93 97 97 Oximetry O2 Sat by Pulse Oximetry [ Assessment] 09/15/18 09/15/18 09/15/18 05:31 06:01 06:31 Temperature Pulse Rate 64 68 67 Pulse Rate [ Anterior Bilateral Throughout] Pulse Rate [ From Monitor] Respiratory 13 17 Rate Respiratory Rate [Anterior Bilateral Throughout] Respiratory Rate [ Generalized] Blood Pressure 96/42 108/38 106/44 O2 Sat by Pulse 94 95 Oximetry O2 Sat by Pulse Oximetry [ Assessment] 09/15/18 09/15/18 09/15/18 07:01 07:30 08:00 Temperature 99.5 F Pulse Rate 74 73 64 Pulse Rate [ Anterior Bilateral Throughout] Pulse Rate [ 66 From Monitor] Respiratory 22 14 14 Rate Respiratory Rate [Anterior Bilateral Throughout] Respiratory 17 Rate [ Generalized] Blood Pressure 116/59 110/43 91/46 O2 Sat by Pulse 95 94 95 Oximetry O2 Sat by Pulse Oximetry [ Assessment] 09/15/18 09/15/18 09/15/18 08:01 08:02 08:30 Temperature Pulse Rate 66 58 L Pulse Rate [ 68 Anterior Bilateral Throughout] Pulse Rate [ From Monitor] Respiratory 14 Rate Respiratory 17 Rate [Anterior Bilateral Throughout] Respiratory Rate [ Generalized] Blood Pressure 91/46 99/45 O2 Sat by Pulse 96 Oximetry O2 Sat by Pulse 96 Oximetry [ Assessment] 09/15/18 09/15/18 09/15/18 08:39 08:43 09:00 Temperature Pulse Rate 66 71 Pulse Rate [ 66 Anterior Bilateral Throughout] Pulse Rate [ From Monitor] Respiratory 11 L 15 Rate Respiratory 17 Rate [Anterior Bilateral Throughout] Respiratory Rate [ Generalized] Blood Pressure 118/46 O2 Sat by Pulse 96 95 Oximetry O2 Sat by Pulse Oximetry [ Assessment] 09/15/18 09/15/18 09/15/18 09:30 09:56 10:00 Temperature Pulse Rate 64 70 72 Pulse Rate [ Anterior Bilateral Throughout] Pulse Rate [ From Monitor] Respiratory 13 17 Rate Respiratory Rate [Anterior Bilateral Throughout] Respiratory Rate [ Generalized] Blood Pressure 114/41 112/44 112/42 O2 Sat by Pulse 95 95 Oximetry O2 Sat by Pulse Oximetry [ Assessment] 09/15/18 09/15/18 09/15/18 10:30 11:00 11:29 Temperature Pulse Rate 68 71 67 Pulse Rate [ Anterior Bilateral Throughout] Pulse Rate [ From Monitor] Respiratory 14 12 Rate Respiratory Rate [Anterior Bilateral Throughout] Respiratory Rate [ Generalized] Blood Pressure 102/32 99/39 101/41 O2 Sat by Pulse 96 97 96 Oximetry O2 Sat by Pulse Oximetry [ Assessment] - General physical appearance Narrative Exam: Gen: Awake ENT: tracheostomy in place, site c/d/i. NGT in place CV: S1, S2+ resp: even and unlabored Abd: soft, NT, ND Ext: +edema - Labs 09/15/18 04:10 09/15/18 04:10 Diabetes panel 09/15/18 Range/Units 04:10 Sodium 141 (137-145) mmol/L Potassium 3.8 (3.6-5.0) mmol/L Chloride 98.9 (98-107) mmol/L Carbon Dioxide 35 H (22-30) mmol/L BUN 21 H (7-17) mg/dL Creatinine 0.7 (0.7-1.2) mg/dL Glucose 91 (65-100) mg/dL Calcium 7.9 L (8.4-10.2) mg/dL Calcium panel 09/15/18 Range/Units 04:10 Calcium 7.9 L (8.4-10.2) mg/dL Pituitary panel 09/15/18 Range/Units 04:10 Sodium 141 (137-145) mmol/L Potassium 3.8 (3.6-5.0) mmol/L Chloride 98.9 (98-107) mmol/L Carbon Dioxide 35 H (22-30) mmol/L BUN 21 H (7-17) mg/dL Creatinine 0.7 (0.7-1.2) mg/dL Glucose 91 (65-100) mg/dL Calcium 7.9 L (8.4-10.2) mg/dL Adrenal panel 09/15/18 Range/Units 04:10 Sodium 141 (137-145) mmol/L Potassium 3.8 (3.6-5.0) mmol/L Chloride 98.9 (98-107) mmol/L Carbon Dioxide 35 H (22-30) mmol/L BUN 21 H (7-17) mg/dL Creatinine 0.7 (0.7-1.2) mg/dL Glucose 91 (65-100) mg/dL Calcium 7.9 L (8.4-10.2) mg/dL
[2018-09-15] MEDS: ARIXTRA SUB-Q SCH (15:25)
--- NOTE | 2018-09-15 16:17 | Cat Scan Report ---
PROCEDURE: CT ABDOMEN PELVIS WO CON TECHNIQUE: CT examination of the abdomen without IV contrast CT examination of the pelvis without IV contrast HISTORY: Could not transilluminate stomach, G tube assessment COMPARISONS: 08/18/2018 FINDINGS: New moderate bilateral pleural effusions, slightly larger on the right. Bilateral lung base infiltrat e slightly less consolidated. Benign calcified granuloma again noted in left lower lobe. Degenerative change again extensive in the regional skeleton, especially lumbar spine. Left hip prost hesis again noted. Metal artifact limits the pelvic examination. No visualized acute fracture. Slight cardiomegaly without pericardial effusion. Status post cholecystectomy. Normal noncontrast appearance of the liver, adrenals, pancreas, and sple en. Normal caliber abdominal aorta with moderate calcified atherosclerotic plaque. Normal caliber IVC . A nonspecific, smoothly marginated, low density, simple appearing left renal lesion is statistically most likely a cyst. It appears unchanged. Otherwise normal-appearing kidneys and visible ureteral seg ments. No hydronephrosis or renal calculus. Very small fat-containing umbilical hernia. No inguinal hernia. No retroperitoneal adenopathy. No britney dence of mesenteric mass. NG tube distal tip in mid stomach region along the anterior wall. No definite stomach or duodenal abn ormality. No small bowel distention in the abdomen and pelvis. Nonspecific lateral subcutaneous new fat stranding in the body wall bilaterally may reflect anasarca. Nonspecific slight pelvic free fluid. Nonspecific soft tissue density in the presacral fat is new from comparison and may reflect fluid, ed jody, inflammation, or infection. Slight fluid in the pericolic gutter bilaterally. Rectal tube remains in place. Urinary bladder decompressed around Dodge catheter. No evidence of foca l rectal or sigmoid abnormality. Normal-appearing descending colon. No gross ascites, free air, or co lonic distention. Normal-appearing cecum, appendix, and terminal ileum. IMPRESSION: New bilateral pleural effusions although bilateral lung base consolidation has decreased in the inter sharon NG tube distal tip in mid stomach region along the anterior wall. No CT evidence of focal gastric abn ormality. New fat stranding in the lateral abdominal wall bilaterally, fluid in the cul-de-sac, presacral densi ty, and fluid in the paracolic gutters may reflect anasarca Slight cardiomegaly without pericardial effusion Status post cholecystectomy Stable cyst left kidney Dodge catheter and rectal tube remains in place This document is electronically signed by Sunday Gomez MD., September 15 2018 04:14:38 PM ET
[2018-09-16] MEDS: HumaLOG SUB-Q SCH ×2 (01:26→07:05)
[2018-09-16] MEDS: DUONEB *Not for PRN Use IH SCH ×4 (03:09→19:11)
--- NOTE | 2018-09-16 05:41 | Hem/Onc Progress Note ---
Assessment and Plan #. Bilateral posterior tibial and peroneal vein deep venous thrombosis, left leg edema. Arixtra was being used. #. h/o Thrombocytopenia. The patient was on heparin-based treatment. Later fondaparinux. HIT negative, plt now better #. Anemia. At admission, hemoglobin was normal. The patient received blood transfusion. deficiency workup low iron - Ferritin - b12 - folate normal . There may be a bleeding component. s/p Iv iron trial #. Pulmonary embolism study is negative. #. h/o Camryn infection. #. Chronic obstructive pulmonary disease. #. History of renal failure. Nephrology following. #. Respiratory failure, on ventilator. History of cardiomyopathy. Trach done PEG pending Off arixtra for procedure candidate for IVC filter eval as pt has been anemic needing transfusion - Patient Problems (1) Thrombocytopenia Current Visit: Yes Status: Acute (2) DVT (deep venous thrombosis) Current Visit: Yes Status: Acute (3) Anemia Current Visit: Yes Status: Acute Subjective Date of service: 09/16/18 Principal diagnosis: anemia - DVT leg Interval history: pending PEG Objective - Constitutional Vitals: Last Vital Signs Temp 98.1 F 09/16/18 00:00 Pulse 76 09/16/18 03:12 Resp 16 09/16/18 03:12 BP 123/55 09/16/18 03:09 Pulse Ox 93 09/16/18 03:09 Pain Intensity (0-10): denies any pain General appearance: no acute distress Performance status: 4-completely disabled - EENT Eyes: EOM intact ENT: hearing intact - Respiratory Respiratory effort: Positive: normal Respiratory: bilateral: diminished - Cardiovascular Heart Sounds: Present: S1 & S2 Extremity abnormal: edema (better) - Gastrointestinal General gastrointestinal: Present: soft, non-tender Rectal Exam: deferred - Genitourinary Female genitourinary: Present: deferred - Integumentary Integumentary: warm - Musculoskeletal Musculoskeletal: generalized weakness - Neurologic Neurologic: moves all extremities (limited in legs) - Labs Lab Results: Laboratory Results - last 24 hr 09/15/18 09/15/18 09/15/18 11:36 11:36 17:46 POC ABG pH 7.436 POC ABG pCO2 53.5 H POC ABG pO2 67 L POC ABG HCO3 36.0 POC ABG Total CO2 38 POC ABG O2 Sat 93 POC ABG Base Excess 12 FiO2 45 POC Glucose 108 H 83 09/16/18 09/16/18 01:16 04:25 POC ABG pH 7.489 H POC ABG pCO2 47.6 H POC ABG pO2 62 L POC ABG HCO3 36.2 POC ABG Total CO2 38 POC ABG O2 Sat 93 POC ABG Base Excess 13 FiO2 45 POC Glucose 108 H Medications & Allergies - Medications Allergies/Adverse Reactions: Allergies No Known Allergies Allergy (Unverified 08/15/18 16:49) Home Medications: Home Medications Medication Instructions Recorded Confirmed Last Taken Type Carvedilol 6.25 mg PO BID 08/15/18 08/15/18 Unknown History DULoxetine 60 mg PO QDAY 08/15/18 08/15/18 Unknown History Gabapentin 600 mg PO Q6HR PRN 08/15/18 08/15/18 Unknown History Methylphenidate 5 mg PO TID 08/15/18 08/15/18 Unknown History Morphabond ER 60 mg PO Q12HR 08/15/18 08/15/18 Unknown History Pravastatin Sodium 10 mg PO QDAY 08/15/18 08/15/18 Unknown History Tizanidine HCl 4 mg PO Q12HR 08/15/18 08/15/18 Unknown History oxyCODONE /ACETAMINOPHEN 7.5 - 325 mg PO Q8HR 08/15/18 08/15/18 Unknown History ALBUTEROL Inhaler(NF) 90 mcg IH TID 08/29/18 08/29/18 Unknown History Omeprazole-Bicarb 40-1,100 Cap 40 mg PO DAILY 08/29/18 08/29/18 Unknown History Active Medications: Generic Name Dose Route Start Last Admin Trade Name Freq PRN Reason Stop Dose Admin Acetaminophen 650 mg 08/15/18 22:12 09/14/18 03:55 Tylenol PO 650 mg Q4H PRN Administration Pain MILD(1-3)/Fever >100.5/MONDRAGON Albuterol 2.5 mg 08/17/18 17:00 Proventil IH Q3HRT PRN Shortness Of Breath Albuterol/Ipratropium 1 ampul 08/20/18 14:00 09/16/18 03:09 Duoneb *Not For Prn Use* IH 1 ampul Q6HRT LAMAR Administration Lipase/Protease/Amylase 1 each 09/02/18 10:[address] 10,500 Unit FEEDTUBE PRN PRN For Clogged Feeding Tube Arformoterol Tartrate 15 mcg 08/18/18 20:00 09/15/18 19:59 Brovana Nebu IH 15 mcg Q12HRT LAMAR Administration Budesonide 0.5 mg 08/18/18 20:00 09/15/18 19:59 Pulmicort IH 0.5 mg Q12HRT LAMAR Administration Carvedilol 3.125 mg 08/26/18 15:19 09/15/18 22:26 Coreg PO 3.125 mg BID LAMAR Administration Famotidine 20 mg 09/05/18 10:00 09/15/18 22:26 Pepcid PO 20 mg BID LAMAR Administration Fondaparinux 7.5 mg 09/07/18 10:00 09/15/18 15:25 Arixtra SUB-Q Not Given DAILY [facility] Furosemide 20 mg 09/13/18 11:00 09/15/18 09:56 Lasix PO 20 mg QAM LAMAR Administration Hydralazine HCl 10 mg 08/19/18 13:59 09/10/18 19:32 Apresoline IV 10 mg Q3H PRN Administration Hydralazine HCl 25 mg 09/01/18 14:00 09/15/18 22:26 Apresoline PO 25 mg Q8HR [facility] Administration Hydromorphone HCl 1 mg 09/06/18 10:38 09/12/18 16:30 Dilaudid IV 1 mg Q4H PRN Administration Pain , Severe (7-10) Hydromorphone HCl 2 mg 09/06/18 12:00 09/16/18 00:00 Dilaudid PO Not Given Q6HR [facility] Hydrophilic Ointment 1 applic 08/15/18 21:55 09/01/18 09:07 Vaseline Lip Therapy TP 1 applic Q2HR PRN Administration Dry Lips Fentanyl Citrate 2,000 mcg in 100 mls @ 4.765 mls/hr 09/02/18 11:00 09/15/18 22:28 Fentanyl Drip Premix IV 4 mcg/kg/hr TITR LAMAR 19.06 mls/hr Administration Protocol 1 MCG/KG/HR Piperacillin Sod/Tazobactam Sod 4.5 gm in 100 mls @ 200 mls/hr 09/14/18 13:00 09/16/18 01:27 Zosyn/Ns 4.5gm/100ml IV Infused Q6HR [facility] Infusion Protocol Insulin Human Lispro 0 unit 09/04/18 18:00 09/16/18 01:26 Humalog SUB-Q Not Given Q6HR [facility] Protocol Metoclopramide HCl 5 mg 08/15/18 22:50 Reglan IV Q6H PRN Nausea And Vomiting Midazolam HCl 1 mg 09/07/18 09:23 09/12/18 17:34 Versed IV 1 mg Q4H PRN Administration AGITATION Ondansetron HCl 4 mg 08/15/18 22:12 08/31/18 17:52 Zofran IV 4 mg Q8H PRN Administration Nausea And Vomiting Quetiapine Fumarate 200 mg 09/04/18 15:00 09/15/18 22:29 Seroquel PO 200 mg BID LAMAR Administration Senna/Docusate Sodium 2 tab 09/06/18 11:00 09/15/18 22:26 Senokot S PO 2 tab BID LAMAR Administration Simple Syrup 15 ml 09/02/18 11:24 Simple Syrup FEEDTUBE PRN PRN Hypoglycemia Simple Syrup 30 ml 09/02/18 11:24 Simple Syrup FEEDTUBE PRN PRN Hypoglycemia Sodium Bicarbonate 325 mg 09/02/18 10:40 Sodium Bicarbonate FEEDTUBE PRN PRN For Clogged Feeding Tube Sodium Chloride 10 ml 08/15/18 22:12 09/12/18 22:05 Sodium Chloride Flush Syringe 10 Ml IV 10 ml PRN PRN Administration LINE FLUSH
[2018-09-16] MEDS: DILAUDID PO SCH ×4 (07:08→20:21)
[2018-09-16] MEDS: APRESOLINE PO SCH ×3 (07:08→21:33)
[2018-09-16] MEDS: ZOSYN/NS 4.5GM/100ML 4.5 GM/100 ML VIAL IV SCH ×4 (07:17→18:00)
--- NOTE | 2018-09-16 09:14 | Progress Note ---
Assessment and Plan Severe sepsis Intermittent fevers and leukocytosis, resolved Fungemia s/p antifungal therapy Acute hypoxic-hypercapnic respiratory failure on MVS, re-intubated s/p tracheostomy h/o COPD LLExt DVT on Fondaparinux Acute kidney injury, resolved Acute encephalopathy( toxic-metabolic) Aspiration pneumonia/CAP New onset cardiomyopathy, LVEF 25-30% this admission Previous echo 03/30/2016 at [facility] revealed normal LVEF Previous stress MPI 03/29/2016 at [facility] revealed no ischemia Abnormal ECG showing LBBB, chronic Anemia s/p PRBC -Recent EGD at [facility] 08/08/2018 revealing irregular Z line, gastritis and small hiatal hernia Recent colonoscopy at [facility] 08/08/2018 revealing sigmoid polyp, transverse colon polyps, inflamed hemorrhoids and diverticulosis E.coli/Staph pneumonia Thrombocytopenia resolved Hypernatremia, resolved Hypokalemia , replete -Continue with MVS -Trach car, airway clearance, secretion management -VAP bundle addressed -Aspiration precautions -Wean supplemental oxygen and PEEP to keep O2 sats 88-90% Decrease PEEP to 6 -ABG and CXR in the morning - Continue OGT for free water, medications and nutritional support. - Agitation and analgesia management -Monitor renal indices while on gentle diuresis -Monitor hemodynamics -Cardioprotective measures -Stress ulcer prophylaxis -Accuchecks with glycemic control. Target glucose of 140-180 mg/dL -Continue bronchodilators with pulmonary hygiene per RT -Maintenance of sleep -wake cycle -Mobility program -Agitation and analgesia, discontinue fentanyl infusion -Influenza and pneumonia vaccination per protocol ..care plan discussed at length with RN/RT at the bedside Discussed with the at the bedside. Updated him and care plan discussed. PEG placement with IR OK to discontinue manrique catheter and monitor for retention Weighing the risks and benefits, I will not recommend IVC filter placement at this time. Contnue to evaluate need for IVCF on a daily basis Discharge planning on going discussions with case management PROGNOSIS :GUARDED CONDITION: CRITICAL CODE STATUS: FULL CODE The high probability of a clinically significant, sudden or life-threatening de terioration of the [respiratory, cardiovascular, renal] system(s) required my full and direct attention, intervention and personal management. The aggregate critical care time was [31] minutes without overlap. Time includes spent on; [x] Data Review and interpretation [x] Patient assessment and monitoring of vital signs [x] Documentation [x] Medication orders and management Subjective Date of service: 09/16/18 Principal diagnosis: anemia - DVT leg Interval history: Follow up: Aspiration PNA, Abnormal CXR, Hypotension, Acute renal failure, Acute encephaloapthy, Acute hypoxemic respiratory failure on MVS Seen and examined. Vitals, labs, medications, chart and imaging reviewed. 24 hours events reviewed. No fevers, no vomiting, agitation much improved. More awake and alert, tracking voice, obeying simple commands s/p tracheostomy to MVS She remains on Full mechanical ventilatory support AC 14/450/PEEP of 10, FIO2 45%, ABG 7.52/48/58/39.2 at the bedside. IR for PEG placement Objective Vital Signs - 12hr 09/15/18 09/15/18 09/15/18 21:16 21:30 21:44 Temperature Pulse Rate 80 72 78 Pulse Rate [ Anterior Bilateral Throughout] Pulse Rate [ From Monitor] Respiratory 22 16 14 Rate Respiratory Rate [Anterior Bilateral Throughout] Respiratory Rate [ Generalized] Blood Pressure 132/54 131/54 131/54 O2 Sat by Pulse 90 89 95 Oximetry O2 Sat by Pulse 95 Oximetry [ Assessment] 09/15/18 09/15/18 09/15/18 21:46 22:00 22:16 Temperature Pulse Rate 78 80 78 Pulse Rate [ Anterior Bilateral Throughout] Pulse Rate [ From Monitor] Respiratory 16 14 17 Rate Respiratory Rate [Anterior Bilateral Throughout] Respiratory Rate [ Generalized] Blood Pressure 131/54 131/54 122/48 O2 Sat by Pulse 94 97 92 Oximetry O2 Sat by Pulse Oximetry [ Assessment] 09/15/18 09/15/18 09/15/18 22:30 22:46 23:00 Temperature Pulse Rate 77 75 76 Pulse Rate [ Anterior Bilateral Throughout] Pulse Rate [ From Monitor] Respiratory 14 17 15 Rate Respiratory Rate [Anterior Bilateral Throughout] Respiratory Rate [ Generalized] Blood Pressure 122/48 132/52 109/45 O2 Sat by Pulse 94 93 96 Oximetry O2 Sat by Pulse Oximetry [ Assessment] 09/15/18 09/15/18 09/15/18 23:16 23:30 23:34 Temperature Pulse Rate 78 71 70 Pulse Rate [ Anterior Bilateral Throughout] Pulse Rate [ From Monitor] Respiratory 14 14 Rate Respiratory Rate [Anterior Bilateral Throughout] Respiratory Rate [ Generalized] Blood Pressure 132/52 111/45 111/45 O2 Sat by Pulse 95 95 95 Oximetry O2 Sat by Pulse Oximetry [ Assessment] 09/15/18 09/16/18 09/16/18 23:46 00:00 00:16 Temperature 98.1 F Pulse Rate 70 68 79 Pulse Rate [ Anterior Bilateral Throughout] Pulse Rate [ 72 From Monitor] Respiratory 13 13 13 Rate Respiratory Rate [Anterior Bilateral Throughout] Respiratory 19 Rate [ Generalized] Blood Pressure 109/45 109/43 111/45 O2 Sat by Pulse 96 94 96 Oximetry O2 Sat by Pulse Oximetry [ Assessment] 09/16/18 09/16/18 09/16/18 00:30 00:46 01:00 Temperature Pulse Rate 72 67 70 Pulse Rate [ Anterior Bilateral Throughout] Pulse Rate [ From Monitor] Respiratory 13 14 14 Rate Respiratory Rate [Anterior Bilateral Throughout] Respiratory Rate [ Generalized] Blood Pressure 98/40 98/40 93/37 O2 Sat by Pulse 95 96 95 Oximetry O2 Sat by Pulse Oximetry [ Assessment] 09/16/18 09/16/18 09/16/18 01:16 01:30 01:46 Temperature Pulse Rate 65 67 67 Pulse Rate [ Anterior Bilateral Throughout] Pulse Rate [ From Monitor] Respiratory 12 15 15 Rate Respiratory Rate [Anterior Bilateral Throughout] Respiratory Rate [ Generalized] Blood Pressure 98/40 100/39 100/39 O2 Sat by Pulse 95 93 95 Oximetry O2 Sat by Pulse Oximetry [ Assessment] 09/16/18 09/16/18 09/16/18 02:00 02:16 02:30 Temperature Pulse Rate 70 67 70 Pulse Rate [ Anterior Bilateral Throughout] Pulse Rate [ From Monitor] Respiratory 17 15 18 Rate Respiratory Rate [Anterior Bilateral Throughout] Respiratory Rate [ Generalized] Blood Pressure 100/39 106/44 99/79 O2 Sat by Pulse 92 94 93 Oximetry O2 Sat by Pulse Oximetry [ Assessment] 09/16/18 09/16/18 09/16/18 02:46 03:00 03:09 Temperature Pulse Rate 73 75 76 Pulse Rate [ Anterior Bilateral Throughout] Pulse Rate [ From Monitor] Respiratory 15 20 Rate Respiratory Rate [Anterior Bilateral Throughout] Respiratory Rate [ Generalized] Blood Pressure 106/44 106/44 123/55 O2 Sat by Pulse 92 93 93 Oximetry O2 Sat by Pulse Oximetry [ Assessment] 09/16/18 09/16/18 09/16/18 03:12 03:16 03:30 Temperature Pulse Rate 74 71 Pulse Rate [ 76 Anterior Bilateral Throughout] Pulse Rate [ From Monitor] Respiratory 10 L 12 Rate Respiratory 16 Rate [Anterior Bilateral Throughout] Respiratory Rate [ Generalized] Blood Pressure 123/55 107/29 O2 Sat by Pulse 99 98 Oximetry O2 Sat by Pulse Oximetry [ Assessment] 09/16/18 09/16/18 09/16/18 03:46 04:00 04:16 Temperature 98.4 F Pulse Rate 74 70 71 Pulse Rate [ Anterior Bilateral Throughout] Pulse Rate [ 72 From Monitor] Respiratory 12 14 19 Rate Respiratory Rate [Anterior Bilateral Throughout] Respiratory Rate [ Generalized] Blood Pressure 107/29 116/51 116/51 O2 Sat by Pulse 100 95 94 Oximetry O2 Sat by Pulse Oximetry [ Assessment] 09/16/18 09/16/18 09/16/18 04:30 04:46 05:00 Temperature Pulse Rate 70 75 78 Pulse Rate [ Anterior Bilateral Throughout] Pulse Rate [ From Monitor] Respiratory 11 L 14 22 Rate Respiratory Rate [Anterior Bilateral Throughout] Respiratory Rate [ Generalized] Blood Pressure 120/49 120/49 120/57 O2 Sat by Pulse 95 95 93 Oximetry O2 Sat by Pulse Oximetry [ Assessment] 09/16/18 09/16/18 09/16/18 05:16 05:30 05:46 Temperature Pulse Rate 70 70 71 Pulse Rate [ Anterior Bilateral Throughout] Pulse Rate [ From Monitor] Respiratory 15 17 12 Rate Respiratory Rate [Anterior Bilateral Throughout] Respiratory Rate [ Generalized] Blood Pressure 120/49 127/62 127/62 O2 Sat by Pulse 98 97 98 Oximetry O2 Sat by Pulse Oximetry [ Assessment] 09/16/18 09/16/18 09/16/18 06:00 06:16 06:30 Temperature Pulse Rate 71 70 72 Pulse Rate [ Anterior Bilateral Throughout] Pulse Rate [ From Monitor] Respiratory 17 16 19 Rate Respiratory Rate [Anterior Bilateral Throughout] Respiratory Rate [ Generalized] Blood Pressure 121/62 121/62 116/53 O2 Sat by Pulse 97 98 96 Oximetry O2 Sat by Pulse Oximetry [ Assessment] 09/16/18 09/16/18 09/16/18 06:46 07:00 07:16 Temperature Pulse Rate 73 71 75 Pulse Rate [ Anterior Bilateral Throughout] Pulse Rate [ From Monitor] Respiratory 21 15 13 Rate Respiratory Rate [Anterior Bilateral Throughout] Respiratory Rate [ Generalized] Blood Pressure 116/53 118/58 118/58 O2 Sat by Pulse 98 96 96 Oximetry O2 Sat by Pulse Oximetry [ Assessment] 09/16/18 09/16/18 09/16/18 07:30 07:46 08:00 Temperature Pulse Rate 71 76 78 Pulse Rate [ Anterior Bilateral Throughout] Pulse Rate [ 76 From Monitor] Respiratory 16 18 16 Rate Respiratory Rate [Anterior Bilateral Throughout] Respiratory Rate [ Generalized] Blood Pressure 118/58 139/57 139/56 O2 Sat by Pulse 94 96 100 Oximetry O2 Sat by Pulse Oximetry [ Assessment] Constitutional: no acute distress, alert, other (elderly looking CF, normocephalic and atraumatic) Eyes: non-icteric ENT: oropharynx moist, other (s/p trachesotomy Size #8 Shiley) Neck: supple, no lymphadenopathy, no JVD, other (no thyromegaly) Effort: mildly labored Ascultation: Bilateral: diminished breath sounds, rales, rhonchi Percussion: Bilateral: not dull Cardiovascular: regular rate and rhythm Gastrointestinal: normoactive bowel sounds, soft, non-tender, non-distended Integumentary: normal Extremities: no cyanosis, no edema, no ischemia or petechiae Neurologic: non-focal exam (grossly), pupils equal and round, motor strength normal and, other (awake and alert, obeying onse step commands) Psychiatric: affect normal CBC and BMP: 09/16/18 11:30 09/17/18 Unknown ABG, PT/INR, D-dimer: ABG POC ABG pH 7.489 (7.35-7.45) H 09/16/18 04:25 POC ABG pCO2 47.6 (35-45) H 09/16/18 04:25 POC ABG pO2 62 (80-105) L 09/16/18 04:25 POC ABG HCO3 36.2 (22-26 mml/L) 09/16/18 04:25 POC ABG Total CO2 38 (23-27mmol/L) 09/16/18 04:25 POC ABG O2 Sat 93 09/16/18 04:25 PT/INR, D-dimer PT 14.2 Sec. (12.2-14.9) 09/14/18 04:55 INR 1.04 (0.87-1.13) 09/14/18 04:55 D-Dimer 2768.33 ng/mlDDU (0-234) H 08/15/18 18:31 Abnormal lab findings: Abnormal Labs 08/15/18 08/15/18 08/15/18 17:52 17:52 17:52 WBC 12.7 H RBC 3.25 L Hgb Hct RDW Plt Count Lymph % (Auto) [place] % (Auto) Lymph # [place] # Seg Neutrophils % Seg Neuts % (Manual) Lymphocytes % (Manual) 6.0 L Nucleated RBC % Seg Neutrophils # Seg Neutrophils # Man Lymphocytes # (Manual) 0.8 L D-Dimer POC ABG pH POC ABG pCO2 POC ABG pO2 VBG pH Sodium Potassium 3.4 L Chloride 94.6 L Carbon Dioxide 17 L BUN 67 H Creatinine 3.5 H Glucose 131 H POC Glucose Hemoglobin A1c Lactic Acid 5.20 H* Calcium 7.6 L Phosphorus Magnesium Iron TIBC AST 887 H ALT 316 H Troponin T C-Reactive Protein Total Protein Albumin 3.1 L Triglycerides LDL Cholesterol Direct HDL Cholesterol Urine WBC (Auto) Vancomycin Trough Salicylates Acetaminophen % CD3 Cells % CD19 Cells Absolute CD19 Count Miscellaneous Test Crossmatch 08/15/18 08/15/18 08/15/18 18:11 18:19 18:31 WBC RBC Hgb Hct RDW Plt Count Lymph % (Auto) [place] % (Auto) Lymph # [place] # Seg Neutrophils % Seg Neuts % (Manual) Lymphocytes % (Manual) Nucleated RBC % Seg Neutrophils # Seg Neutrophils # Man Lymphocytes # (Manual) D-Dimer 2768.33 H POC ABG pH 7.173 L POC ABG pCO2 47.8 H POC ABG pO2 177 H VBG pH 7.187 L* Sodium Potassium Chloride Carbon Dioxide BUN Creatinine Glucose POC Glucose Hemoglobin A1c Lactic Acid Calcium Phosphorus Magnesium Iron TIBC AST ALT Troponin T C-Reactive Protein Total Protein Albumin Triglycerides LDL Cholesterol Direct HDL Cholesterol Urine WBC (Auto) Vancomycin Trough Salicylates Acetaminophen % CD3 Cells % CD19 Cells Absolute CD19 Count Miscellaneous Test Crossmatch 08/15/18 08/15/18 08/15/18 18:31 19:14 19:14 WBC RBC Hgb Hct RDW Plt Count Lymph % (Auto) [place] % (Auto) Lymph # [place] # Seg Neutrophils % Seg Neuts % (Manual) Lymphocytes % (Manual) Nucleated RBC % Seg Neutrophils # Seg Neutrophils # Man Lymphocytes # (Manual) D-Dimer POC ABG pH POC ABG pCO2 POC ABG pO2 VBG pH Sodium Potassium Chloride Carbon Dioxide BUN Creatinine Glucose POC Glucose Hemoglobin A1c Lactic Acid 2.70 H* Calcium Phosphorus Magnesium Iron TIBC AST ALT Troponin T 0.454 H* C-Reactive Protein Total Protein Albumin Triglycerides 356 H LDL Cholesterol Direct 4 L HDL Cholesterol 10 L Urine WBC (Auto) Vancomycin Trough Salicylates < 0.3 L Acetaminophen % CD3 Cells % CD19 Cells Absolute CD19 Count Miscellaneous Test Crossmatch 08/15/18 08/15/18 08/15/18 19:14 19:15 23:09 WBC RBC Hgb Hct RDW Plt Count Lymph % (Auto) [place] % (Auto) Lymph # [place] # Seg Neutrophils % Seg Neuts % (Manual) Lymphocytes % (Manual) Nucleated RBC % Seg Neutrophils # Seg Neutrophils # Man Lymphocytes # (Manual) D-Dimer POC ABG pH POC ABG pCO2 POC ABG pO2 VBG pH Sodium Potassium Chloride Carbon Dioxide BUN Creatinine Glucose POC Glucose Hemoglobin A1c Lactic Acid 3.20 H* Calcium Phosphorus Magnesium Iron TIBC AST ALT Troponin T C-Reactive Protein Total Protein Albumin Triglycerides LDL Cholesterol Direct HDL Cholesterol Urine WBC (Auto) 17.0 H Vancomycin Trough Salicylates Acetaminophen < 5.0 L % CD3 Cells % CD19 Cells Absolute CD19 Count Miscellaneous Test Crossmatch 08/15/18 08/16/18 08/16/18 23:09 01:41 05:38 WBC RBC 3.07 L Hgb 9.8 L Hct 28.7 L RDW Plt Count Lymph % (Auto) [place] % (Auto) Lymph # [place] # Seg Neutrophils % Seg Neuts % (Manual) 84.0 H Lymphocytes % (Manual) 6.0 L Nucleated RBC % 4.0 H Seg Neutrophils # Seg Neutrophils # Man Lymphocytes # (Manual) 0.5 L D-Dimer POC ABG pH 7.323 L POC ABG pCO2 34.7 L POC ABG pO2 78 L VBG pH Sodium Potassium Chloride Carbon Dioxide BUN Creatinine Glucose POC Glucose Hemoglobin A1c 6.4 H Lactic Acid Calcium Phosphorus Magnesium Iron TIBC AST ALT Troponin T C-Reactive Protein Total Protein Albumin Triglycerides LDL Cholesterol Direct HDL Cholesterol Urine WBC (Auto) Vancomycin Trough Salicylates Acetaminophen % CD3 Cells % CD19 Cells Absolute CD19 Count Miscellaneous Test Crossmatch 08/16/18 08/16/18 08/17/18 05:38 22:43 03:42 WBC RBC Hgb Hct RDW Plt Count Lymph % (Auto) [place] % (Auto) Lymph # [place] # Seg Neutrophils % Seg Neuts % (Manual) Lymphocytes % (Manual) Nucleated RBC % Seg Neutrophils # Seg Neutrophils # Man Lymphocytes # (Manual) D-Dimer POC ABG pH POC ABG pCO2 POC ABG pO2 VBG pH Sodium Potassium 2.9 L* 3.1 L 2.9 L* Chloride 108.8 H 111.9 H Carbon Dioxide 17 L 19 L 21 L BUN 62 H 40 H 33 H Creatinine 2.0 H Glucose 139 H 145 H POC Glucose Hemoglobin A1c Lactic Acid Calcium 7.8 L 8.3 L Phosphorus 1.50 L Magnesium Iron TIBC AST 619 H ALT 353 H Troponin T C-Reactive Protein Total Protein 6.1 L Albumin 2.8 L Triglycerides LDL Cholesterol Direct HDL Cholesterol Urine WBC (Auto) Vancomycin Trough Salicylates Acetaminophen % CD3 Cells % CD19 Cells Absolute CD19 Count Miscellaneous Test Crossmatch 08/17/18 08/17/18 08/18/18 11:02 16:42 03:28 WBC RBC Hgb Hct RDW Plt Count Lymph % (Auto) [place] % (Auto) Lymph # [place] # Seg Neutrophils % Seg Neuts % (Manual) Lymphocytes % (Manual) Nucleated RBC % Seg Neutrophils # Seg Neutrophils # Man Lymphocytes # (Manual) D-Dimer POC ABG pH 7.483 H 7.499 H POC ABG pCO2 POC ABG pO2 VBG pH Sodium 147 H Potassium 3.2 L Chloride 115.8 H Carbon Dioxide BUN 23 H Creatinine Glucose 121 H POC Glucose Hemoglobin A1c Lactic Acid Calcium 8.1 L Phosphorus 2.30 L D Magnesium Iron TIBC AST ALT Troponin T C-Reactive Protein Total Protein Albumin Triglycerides LDL Cholesterol Direct HDL Cholesterol Urine WBC (Auto) Vancomycin Trough Salicylates Acetaminophen % CD3 Cells % CD19 Cells Absolute CD19 Count Miscellaneous Test Crossmatch 08/18/18 08/18/18 08/18/18 04:10 13:39 13:39 WBC RBC Hgb Hct RDW Plt Count Lymph % (Auto) [place] % (Auto) Lymph # [place] # Seg Neutrophils % Seg Neuts % (Manual) Lymphocytes % (Manual) Nucleated RBC % Seg Neutrophils # Seg Neutrophils # Man Lymphocytes # (Manual) D-Dimer POC ABG pH POC ABG pCO2 POC ABG pO2 VBG pH Sodium 147 H Potassium 3.3 L Chloride 111.9 H Carbon Dioxide BUN 21 H Creatinine Glucose 113 H POC Glucose Hemoglobin A1c Lactic Acid Calcium Phosphorus 1.50 L D Magnesium Iron TIBC AST ALT Troponin T 0.317 H* D C-Reactive Protein 10.70 H Total Protein Albumin Triglycerides LDL Cholesterol Direct HDL Cholesterol Urine WBC (Auto) Vancomycin Trough Salicylates Acetaminophen % CD3 Cells % CD19 Cells Absolute CD19 Count Miscellaneous Test Crossmatch 08/18/18 08/19/18 08/19/18 16:51 03:47 04:15 WBC RBC Hgb Hct RDW Plt Count Lymph % (Auto) [place] % (Auto) Lymph # [place] # Seg Neutrophils % Seg Neuts % (Manual) Lymphocytes % (Manual) Nucleated RBC % Seg Neutrophils # Seg Neutrophils # Man Lymphocytes # (Manual) D-Dimer POC ABG pH 7.454 H 7.482 H POC ABG pCO2 POC ABG pO2 65 L VBG pH Sodium 154 H Potassium 3.3 L Chloride 115.1 H Carbon Dioxide BUN 19 H Creatinine Glucose 117 H POC Glucose Hemoglobin A1c Lactic Acid Calcium 7.8 L Phosphorus Magnesium Iron TIBC AST ALT Troponin T C-Reactive Protein Total Protein Albumin Triglycerides LDL Cholesterol Direct HDL Cholesterol Urine WBC (Auto) Vancomycin Trough Salicylates Acetaminophen % CD3 Cells % CD19 Cells Absolute CD19 Count Miscellaneous Test Crossmatch 08/19/18 08/19/18 08/20/18 14:32 16:18 03:51 WBC RBC Hgb Hct RDW Plt Count Lymph % (Auto) [place] % (Auto) Lymph # [place] # Seg Neutrophils % Seg Neuts % (Manual) Lymphocytes % (Manual) Nucleated RBC % Seg Neutrophils # Seg Neutrophils # Man Lymphocytes # (Manual) D-Dimer POC ABG pH 7.483 H POC ABG pCO2 33.4 L POC ABG pO2 51 L 74 L VBG pH Sodium Potassium Chloride Carbon Dioxide BUN Creatinine Glucose POC Glucose Hemoglobin A1c Lactic Acid Calcium Phosphorus Magnesium Iron TIBC AST ALT Troponin T C-Reactive Protein Total Protein Albumin Triglycerides LDL Cholesterol Direct HDL Cholesterol Urine WBC (Auto) Vancomycin Trough Salicylates Acetaminophen % CD3 Cells 44 L % CD19 Cells 41 H Absolute CD19 Count 1290 H Miscellaneous Test Crossmatch 08/20/18 08/21/18 08/21/18 05:25 03:54 05:45 WBC 24.1 H RBC 2.83 L Hgb 8.8 L Hct 26.7 L RDW 15.7 H Plt Count 127 L Lymph % (Auto) [place] % (Auto) Lymph # [place] # Seg Neutrophils % Seg Neuts % (Manual) 94.0 H Lymphocytes % (Manual) 4.0 L Nucleated RBC % 1.0 H Seg Neutrophils # Seg Neutrophils # Man 22.7 H Lymphocytes # (Manual) 1.0 L D-Dimer POC ABG pH POC ABG pCO2 31.9 L POC ABG pO2 66 L VBG pH Sodium 146 H D Potassium Chloride 111.2 H Carbon Dioxide BUN 24 H Creatinine Glucose 141 H POC Glucose Hemoglobin A1c Lactic Acid Calcium 8.1 L Phosphorus Magnesium Iron TIBC AST 65 H ALT 104 H Troponin T C-Reactive Protein Total Protein 6.2 L Albumin 2.6 L Triglycerides LDL Cholesterol Direct HDL Cholesterol Urine WBC (Auto) Vancomycin Trough Salicylates Acetaminophen % CD3 Cells % CD19 Cells Absolute CD19 Count Miscellaneous Test Crossmatch 08/21/18 08/22/18 08/22/18 05:45 06:20 06:45 WBC RBC Hgb Hct RDW Plt Count Lymph % (Auto) [place] % (Auto) Lymph # [place] # Seg Neutrophils % Seg Neuts % (Manual) Lymphocytes % (Manual) Nucleated RBC % Seg Neutrophils # Seg Neutrophils # Man Lymphocytes # (Manual) D-Dimer POC ABG pH POC ABG pCO2 32.9 L POC ABG pO2 VBG pH Sodium Potassium 3.5 L Chloride 109.4 H 112.4 H Carbon Dioxide 21 L 20 L BUN 50 H 61 H Creatinine 2.0 H D 1.9 H Glucose 144 H 154 H POC Glucose Hemoglobin A1c Lactic Acid Calcium 7.6 L 7.8 L Phosphorus Magnesium Iron TIBC AST ALT Troponin T C-Reactive Protein Total Protein 5.3 L Albumin 2.1 L Triglycerides LDL Cholesterol Direct HDL Cholesterol Urine WBC (Auto) Vancomycin Trough Salicylates Acetaminophen % CD3 Cells % CD19 Cells Absolute CD19 Count Miscellaneous Test Crossmatch 08/22/18 08/22/18 08/22/18 06:45 15:29 18:40 WBC RBC Hgb Hct RDW Plt Count Lymph % (Auto) [place] % (Auto) Lymph # [place] # Seg Neutrophils % Seg Neuts % (Manual) Lymphocytes % (Manual) Nucleated RBC % Seg Neutrophils # Seg Neutrophils # Man Lymphocytes # (Manual) D-Dimer POC ABG pH POC ABG pCO2 POC ABG pO2 VBG pH Sodium Potassium Chloride Carbon Dioxide BUN Creatinine Glucose POC Glucose 169 H Hemoglobin A1c Lactic Acid Calcium Phosphorus Magnesium Iron TIBC AST ALT Troponin T C-Reactive Protein 4.70 H Total Protein Albumin Triglycerides 197 H LDL Cholesterol Direct HDL Cholesterol Urine WBC (Auto) Vancomycin Trough Salicylates Acetaminophen % CD3 Cells % CD19 Cells Absolute CD19 Count Miscellaneous Test Crossmatch 08/23/18 08/23/18 08/23/18 03:59 21:19 Unknown WBC 12.1 H RBC 2.29 L Hgb 7.1 L Hct 21.7 L RDW 15.7 H Plt Count 106 L Lymph % (Auto) [place] % (Auto) Lymph # [place] # Seg Neutrophils % Seg Neuts % (Manual) 92.0 H Lymphocytes % (Manual) 4.0 L Nucleated RBC % Seg Neutrophils # Seg Neutrophils # Man 11.1 H Lymphocytes # (Manual) 0.5 L D-Dimer POC ABG pH 7.306 L POC ABG pCO2 31.3 L POC ABG pO2 119 H 75 L VBG pH Sodium Potassium Chloride Carbon Dioxide BUN Creatinine Glucose POC Glucose Hemoglobin A1c Lactic Acid Calcium Phosphorus Magnesium Iron TIBC AST ALT Troponin T C-Reactive Protein Total Protein Albumin Triglycerides LDL Cholesterol Direct HDL Cholesterol Urine WBC (Auto) Vancomycin Trough Salicylates Acetaminophen % CD3 Cells % CD19 Cells Absolute CD19 Count Miscellaneous Test Crossmatch 08/23/18 08/24/18 08/24/18 Unknown 04:18 08:30 WBC 12.8 H RBC 2.24 L Hgb 7.0 L Hct 21.1 L RDW Plt Count Lymph % (Auto) [place] % (Auto) Lymph # [place] # Seg Neutrophils % Seg Neuts % (Manual) 93.0 H Lymphocytes % (Manual) 6.0 L Nucleated RBC % Seg Neutrophils # Seg Neutrophils # Man 11.9 H Lymphocytes # (Manual) 0.8 L D-Dimer POC ABG pH POC ABG pCO2 POC ABG pO2 78 L VBG pH Sodium Potassium Chloride 115.7 H Carbon Dioxide 21 L BUN 64 H Creatinine 2.0 H Glucose 149 H POC Glucose Hemoglobin A1c Lactic Acid Calcium 7.5 L Phosphorus Magnesium Iron TIBC AST ALT Troponin T C-Reactive Protein Total Protein 4.8 L Albumin 2.0 L Triglycerides LDL Cholesterol Direct HDL Cholesterol Urine WBC (Auto) Vancomycin Trough Salicylates Acetaminophen % CD3 Cells % CD19 Cells Absolute CD19 Count Miscellaneous Test Crossmatch 08/24/18 08/24/18 08/24/18 08:30 17:44 18:28 WBC RBC Hgb Hct RDW Plt Count Lymph % (Auto) [place] % (Auto) Lymph # [place] # Seg Neutrophils % Seg Neuts % (Manual) Lymphocytes % (Manual) Nucleated RBC % Seg Neutrophils # Seg Neutrophils # Man Lymphocytes # (Manual) D-Dimer POC ABG pH 7.474 H POC ABG pCO2 POC ABG pO2 61 L VBG pH Sodium Potassium Chloride 108.3 H Carbon Dioxide 20 L BUN 65 H Creatinine 2.0 H Glucose 167 H POC Glucose 164 H Hemoglobin A1c Lactic Acid Calcium 7.7 L Phosphorus Magnesium Iron TIBC AST ALT Troponin T C-Reactive Protein Total Protein 5.3 L Albumin 2.2 L Triglycerides LDL Cholesterol Direct HDL Cholesterol Urine WBC (Auto) Vancomycin Trough Salicylates Acetaminophen % CD3 Cells % CD19 Cells Absolute CD19 Count Miscellaneous Test Crossmatch 08/25/18 08/25/18 08/25/18 03:35 05:20 05:20 WBC RBC Hgb 6.7 L Hct 21.0 L RDW Plt Count Lymph % (Auto) [place] % (Auto) Lymph # [place] # Seg Neutrophils % Seg Neuts % (Manual) Lymphocytes % (Manual) Nucleated RBC % Seg Neutrophils # Seg Neutrophils # Man Lymphocytes # (Manual) D-Dimer POC ABG pH POC ABG pCO2 POC ABG pO2 79 L VBG pH Sodium Potassium Chloride Carbon Dioxide 21 L BUN 71 H Creatinine 3.1 H D Glucose 171 H POC Glucose Hemoglobin A1c Lactic Acid Calcium 7.5 L Phosphorus Magnesium Iron TIBC AST ALT Troponin T C-Reactive Protein Total Protein Albumin Triglycerides LDL Cholesterol Direct HDL Cholesterol Urine WBC (Auto) Vancomycin Trough Salicylates Acetaminophen % CD3 Cells % CD19 Cells Absolute CD19 Count Miscellaneous Test Crossmatch 08/25/18 08/25/18 08/25/18 05:20 08:52 12:42 WBC RBC Hgb Hct RDW Plt Count Lymph % (Auto) [place] % (Auto) Lymph # [place] # Seg Neutrophils % Seg Neuts % (Manual) Lymphocytes % (Manual) Nucleated RBC % Seg Neutrophils # Seg Neutrophils # Man Lymphocytes # (Manual) D-Dimer POC ABG pH POC ABG pCO2 POC ABG pO2 VBG pH Sodium Potassium Chloride Carbon Dioxide BUN Creatinine Glucose POC Glucose 166 H Hemoglobin A1c Lactic Acid Calcium Phosphorus Magnesium Iron TIBC AST ALT Troponin T C-Reactive Protein 5.00 H Total Protein Albumin Triglycerides LDL Cholesterol Direct HDL Cholesterol Urine WBC (Auto) Vancomycin Trough Salicylates Acetaminophen % CD3 Cells % CD19 Cells Absolute CD19 Count Miscellaneous Test Crossmatch See Detail 08/25/18 08/26/18 08/26/18 18:05 00:13 04:53 WBC RBC Hgb Hct RDW Plt Count Lymph % (Auto) [place] % (Auto) Lymph # [place] # Seg Neutrophils % Seg Neuts % (Manual) Lymphocytes % (Manual) Nucleated RBC % Seg Neutrophils # Seg Neutrophils # Man Lymphocytes # (Manual) D-Dimer POC ABG pH POC ABG pCO2 30.9 L POC ABG pO2 70 L VBG pH Sodium Potassium Chloride Carbon Dioxide BUN Creatinine Glucose POC Glucose 121 H 164 H Hemoglobin A1c Lactic Acid Calcium Phosphorus Magnesium Iron TIBC AST ALT Troponin T C-Reactive Protein Total Protein Albumin Triglycerides LDL Cholesterol Direct HDL Cholesterol Urine WBC (Auto) Vancomycin Trough Salicylates Acetaminophen % CD3 Cells % CD19 Cells Absolute CD19 Count Miscellaneous Test Crossmatch 08/26/18 08/26/18 08/26/18 05:42 06:00 06:00 WBC RBC 2.62 L Hgb 7.7 L Hct 23.0 L RDW 22.0 H Plt Count Lymph % (Auto) 6.3 L [place] % (Auto) Lymph # 0.7 L [place] # Seg Neutrophils % 88.1 H Seg Neuts % (Manual) Lymphocytes % (Manual) Nucleated RBC % Seg Neutrophils # 9.6 H Seg Neutrophils # Man Lymphocytes # (Manual) D-Dimer POC ABG pH POC ABG pCO2 POC ABG pO2 VBG pH Sodium Potassium Chloride Carbon Dioxide 21 L BUN 70 H Creatinine 3.3 H Glucose 146 H POC Glucose 149 H Hemoglobin A1c Lactic Acid Calcium 8.0 L Phosphorus Magnesium Iron TIBC AST ALT Troponin T C-Reactive Protein Total Protein Albumin Triglycerides LDL Cholesterol Direct HDL Cholesterol Urine WBC (Auto) Vancomycin Trough Salicylates Acetaminophen % CD3 Cells % CD19 Cells Absolute CD19 Count Miscellaneous Test Crossmatch 08/26/18 08/26/18 08/27/18 11:37 23:54 04:35 WBC RBC 2.50 L Hgb 7.6 L Hct 22.3 L RDW 21.8 H Plt Count Lymph % (Auto) 7.3 L [place] % (Auto) Lymph # 0.7 L [place] # Seg Neutrophils % 85.6 H Seg Neuts % (Manual) Lymphocytes % (Manual) Nucleated RBC % Seg Neutrophils # 8.6 H Seg Neutrophils # Man Lymphocytes # (Manual) D-Dimer POC ABG pH POC ABG pCO2 POC ABG pO2 VBG pH Sodium Potassium Chloride Carbon Dioxide BUN Creatinine Glucose POC Glucose 183 H 150 H Hemoglobin A1c Lactic Acid Calcium Phosphorus Magnesium Iron TIBC AST ALT Troponin T C-Reactive Protein Total Protein Albumin Triglycerides LDL Cholesterol Direct HDL Cholesterol Urine WBC (Auto) Vancomycin Trough Salicylates Acetaminophen % CD3 Cells % CD19 Cells Absolute CD19 Count Miscellaneous Test Crossmatch 08/27/18 08/27/18 08/28/18 04:35 12:17 04:43 WBC RBC Hgb Hct RDW Plt Count Lymph % (Auto) [place] % (Auto) Lymph # [place] # Seg Neutrophils % Seg Neuts % (Manual) Lymphocytes % (Manual) Nucleated RBC % Seg Neutrophils # Seg Neutrophils # Man Lymphocytes # (Manual) D-Dimer POC ABG pH POC ABG pCO2 32.1 L 33.8 L POC ABG pO2 68 L 78 L VBG pH Sodium Potassium Chloride Carbon Dioxide 19 L BUN 67 H Creatinine 2.9 H Glucose 155 H POC Glucose Hemoglobin A1c Lactic Acid Calcium Phosphorus 4.70 H Magnesium Iron TIBC AST ALT Troponin T C-Reactive Protein Total Protein Albumin Triglycerides LDL Cholesterol Direct HDL Cholesterol Urine WBC (Auto) Vancomycin Trough Salicylates Acetaminophen % CD3 Cells % CD19 Cells Absolute CD19 Count Miscellaneous Test Crossmatch 08/28/18 08/28/18 08/28/18 05:03 05:20 05:20 WBC RBC 2.43 L Hgb 7.4 L Hct 21.8 L RDW 20.8 H Plt Count Lymph % (Auto) 7.6 L [place] % (Auto) 8.7 H Lymph # 0.7 L [place] # Seg Neutrophils % 82.9 H Seg Neuts % (Manual) Lymphocytes % (Manual) Nucleated RBC % Seg Neutrophils # Seg Neutrophils # Man Lymphocytes # (Manual) D-Dimer POC ABG pH POC ABG pCO2 POC ABG pO2 VBG pH Sodium Potassium Chloride 107.8 H Carbon Dioxide 21 L BUN 55 H Creatinine 2.0 H Glucose 177 H POC Glucose 160 H Hemoglobin A1c Lactic Acid Calcium Phosphorus Magnesium Iron TIBC AST ALT Troponin T C-Reactive Protein Total Protein Albumin Triglycerides LDL Cholesterol Direct HDL Cholesterol Urine WBC (Auto) Vancomycin Trough Salicylates Acetaminophen % CD3 Cells % CD19 Cells Absolute CD19 Count Miscellaneous Test Crossmatch 08/28/18 08/28/18 08/28/18 12:18 18:58 22:31 WBC RBC Hgb Hct RDW Plt Count Lymph % (Auto) [place] % (Auto) Lymph # [place] # Seg Neutrophils % Seg Neuts % (Manual) Lymphocytes % (Manual) Nucleated RBC % Seg Neutrophils # Seg Neutrophils # Man Lymphocytes # (Manual) D-Dimer POC ABG pH POC ABG pCO2 34.4 L POC ABG pO2 67 L VBG pH Sodium Potassium Chloride Carbon Dioxide BUN Creatinine Glucose POC Glucose 164 H 149 H Hemoglobin A1c Lactic Acid Calcium Phosphorus Magnesium Iron TIBC AST ALT Troponin T C-Reactive Protein Total Protein Albumin Triglycerides LDL Cholesterol Direct HDL Cholesterol Urine WBC (Auto) Vancomycin Trough Salicylates Acetaminophen % CD3 Cells % CD19 Cells Absolute CD19 Count Miscellaneous Test Crossmatch 08/28/18 08/29/18 08/29/18 23:33 05:25 05:25 WBC RBC 2.30 L Hgb 7.0 L Hct 20.9 L RDW 21.0 H Plt Count Lymph % (Auto) 11.5 L [place] % (Auto) 9.2 H Lymph # 0.8 L [place] # Seg Neutrophils % 78.8 H Seg Neuts % (Manual) Lymphocytes % (Manual) Nucleated RBC % Seg Neutrophils # Seg Neutrophils # Man Lymphocytes # (Manual) D-Dimer POC ABG pH POC ABG pCO2 POC ABG pO2 VBG pH Sodium Potassium Chloride 111.1 H Carbon Dioxide BUN 55 H Creatinine 1.8 H Glucose 162 H POC Glucose 143 H Hemoglobin A1c Lactic Acid Calcium Phosphorus Magnesium Iron TIBC AST 46 H ALT < 5 L Troponin T C-Reactive Protein Total Protein 5.7 L Albumin 2.1 L Triglycerides LDL Cholesterol Direct HDL Cholesterol Urine WBC (Auto) Vancomycin Trough Salicylates Acetaminophen % CD3 Cells % CD19 Cells Absolute CD19 Count Miscellaneous Test Crossmatch 08/29/18 08/29/18 08/30/18 18:19 23:35 05:03 WBC RBC Hgb Hct RDW Plt Count Lymph % (Auto) [place] % (Auto) Lymph # [place] # Seg Neutrophils % Seg Neuts % (Manual) Lymphocytes % (Manual) Nucleated RBC % Seg Neutrophils # Seg Neutrophils # Man Lymphocytes # (Manual) D-Dimer POC ABG pH POC ABG pCO2 POC ABG pO2 VBG pH Sodium Potassium Chloride Carbon Dioxide BUN Creatinine Glucose POC Glucose 155 H 139 H 122 H Hemoglobin A1c Lactic Acid Calcium Phosphorus Magnesium Iron TIBC AST ALT Troponin T C-Reactive Protein Total Protein Albumin Triglycerides LDL Cholesterol Direct HDL Cholesterol Urine WBC (Auto) Vancomycin Trough Salicylates Acetaminophen % CD3 Cells % CD19 Cells Absolute CD19 Count Miscellaneous Test Crossmatch 08/30/18 08/30/18 08/30/18 09:33 09:33 09:54 WBC RBC 2.58 L Hgb 7.9 L Hct 23.5 L RDW 20.9 H Plt Count Lymph % (Auto) 8.0 L [place] % (Auto) 9.7 H Lymph # 0.8 L [place] # 1.0 H Seg Neutrophils % 82.1 H Seg Neuts % (Manual) Lymphocytes % (Manual) Nucleated RBC % Seg Neutrophils # 8.2 H Seg Neutrophils # Man Lymphocytes # (Manual) D-Dimer POC ABG pH POC ABG pCO2 POC ABG pO2 VBG pH Sodium 146 H Potassium Chloride 110.7 H Carbon Dioxide BUN 56 H Creatinine 1.9 H Glucose 145 H POC Glucose Hemoglobin A1c Lactic Acid Calcium Phosphorus 4.60 H Magnesium Iron TIBC AST ALT < 5 L Troponin T C-Reactive Protein Total Protein Albumin 2.7 L Triglycerides LDL Cholesterol Direct HDL Cholesterol Urine WBC (Auto) Vancomycin Trough Salicylates Acetaminophen % CD3 Cells % CD19 Cells Absolute CD19 Count Miscellaneous Test Flexitest 1 H Crossmatch 08/30/18 08/30/18 08/30/18 09:57 11:26 18:08 WBC RBC Hgb Hct RDW Plt Count Lymph % (Auto) [place] % (Auto) Lymph # [place] # Seg Neutrophils % Seg Neuts % (Manual) Lymphocytes % (Manual) Nucleated RBC % Seg Neutrophils # Seg Neutrophils # Man Lymphocytes # (Manual) D-Dimer POC ABG pH POC ABG pCO2 POC ABG pO2 VBG pH Sodium Potassium Chloride Carbon Dioxide BUN Creatinine Glucose POC Glucose 149 H 156 H Hemoglobin A1c Lactic Acid Calcium Phosphorus Magnesium Iron TIBC AST ALT Troponin T C-Reactive Protein Total Protein Albumin Triglycerides LDL Cholesterol Direct HDL Cholesterol Urine WBC (Auto) Vancomycin Trough Salicylates Acetaminophen % CD3 Cells % CD19 Cells Absolute CD19 Count Miscellaneous Test Flexitest 1 H Crossmatch 08/30/18 08/31/18 08/31/18 23:14 05:16 08:40 WBC RBC Hgb Hct RDW Plt Count Lymph % (Auto) [place] % (Auto) Lymph # [place] # Seg Neutrophils % Seg Neuts % (Manual) Lymphocytes % (Manual) Nucleated RBC % Seg Neutrophils # Seg Neutrophils # Man Lymphocytes # (Manual) D-Dimer POC ABG pH POC ABG pCO2 POC ABG pO2 VBG pH Sodium 151 H Potassium Chloride 113.8 H Carbon Dioxide BUN 45 H Creatinine Glucose 144 H POC Glucose 117 H 133 H Hemoglobin A1c Lactic Acid Calcium Phosphorus Magnesium Iron TIBC AST ALT Troponin T C-Reactive Protein Total Protein Albumin Triglycerides LDL Cholesterol Direct HDL Cholesterol Urine WBC (Auto) Vancomycin Trough Salicylates Acetaminophen % CD3 Cells % CD19 Cells Absolute CD19 Count Miscellaneous Test Crossmatch 08/31/18 09/01/18 09/01/18 23:46 04:45 04:45 WBC RBC 2.38 L Hgb 7.3 L Hct 22.1 L RDW 21.1 H Plt Count Lymph % (Auto) [place] % (Auto) Lymph # [place] # Seg Neutrophils % Seg Neuts % (Manual) 93.0 H Lymphocytes % (Manual) 4.0 L Nucleated RBC % Seg Neutrophils # Seg Neutrophils # Man 10.1 H Lymphocytes # (Manual) 0.4 L D-Dimer POC ABG pH POC ABG pCO2 POC ABG pO2 VBG pH Sodium 156 H Potassium 3.1 L Chloride 115.2 H Carbon Dioxide BUN 34 H Creatinine Glucose 125 H POC Glucose 124 H Hemoglobin A1c Lactic Acid Calcium Phosphorus Magnesium Iron TIBC AST ALT Troponin T C-Reactive Protein Total Protein Albumin Triglycerides LDL Cholesterol Direct HDL Cholesterol Urine WBC (Auto) Vancomycin Trough Salicylates Acetaminophen % CD3 Cells % CD19 Cells Absolute CD19 Count Miscellaneous Test Crossmatch 09/01/18 09/01/18 09/01/18 05:34 11:20 17:52 WBC RBC Hgb Hct RDW Plt Count Lymph % (Auto) [place] % (Auto) Lymph # [place] # Seg Neutrophils % Seg Neuts % (Manual) Lymphocytes % (Manual) Nucleated RBC % Seg Neutrophils # Seg Neutrophils # Man Lymphocytes # (Manual) D-Dimer POC ABG pH 7.553 H POC ABG pCO2 POC ABG pO2 74 L VBG pH Sodium Potassium Chloride Carbon Dioxide BUN Creatinine Glucose POC Glucose 128 H 146 H Hemoglobin A1c Lactic Acid Calcium Phosphorus Magnesium Iron TIBC AST ALT Troponin T C-Reactive Protein Total Protein Albumin Triglycerides LDL Cholesterol Direct HDL Cholesterol Urine WBC (Auto) Vancomycin Trough Salicylates Acetaminophen % CD3 Cells % CD19 Cells Absolute CD19 Count Miscellaneous Test Crossmatch 09/01/18 09/02/18 09/02/18 17:52 04:13 04:58 WBC 16.4 H RBC 2.64 L Hgb 7.9 L Hct 24.3 L RDW 20.8 H Plt Count Lymph % (Auto) [place] % (Auto) Lymph # [place] # Seg Neutrophils % Seg Neuts % (Manual) 96.0 H Lymphocytes % (Manual) 1.0 L Nucleated RBC % Seg Neutrophils # Seg Neutrophils # Man 15.7 H Lymphocytes # (Manual) 0.2 L D-Dimer POC ABG pH 7.488 H POC ABG pCO2 POC ABG pO2 63 L VBG pH Sodium Potassium Chloride Carbon Dioxide BUN Creatinine Glucose POC Glucose 143 H Hemoglobin A1c Lactic Acid Calcium Phosphorus Magnesium Iron TIBC AST ALT Troponin T C-Reactive Protein Total Protein Albumin Triglycerides LDL Cholesterol Direct HDL Cholesterol Urine WBC (Auto) Vancomycin Trough Salicylates Acetaminophen % CD3 Cells % CD19 Cells Absolute CD19 Count Miscellaneous Test Crossmatch 09/02/18 09/02/18 09/02/18 04:58 11:03 18:18 WBC RBC Hgb Hct RDW Plt Count Lymph % (Auto) [place] % (Auto) Lymph # [place] # Seg Neutrophils % Seg Neuts % (Manual) Lymphocytes % (Manual) Nucleated RBC % Seg Neutrophils # Seg Neutrophils # Man Lymphocytes # (Manual) D-Dimer POC ABG pH 7.344 L POC ABG pCO2 52.8 H POC ABG pO2 VBG pH Sodium 158 H Potassium 2.9 L* Chloride 115.7 H Carbon Dioxide BUN 27 H Creatinine 0.6 L Glucose 128 H POC Glucose 121 H Hemoglobin A1c Lactic Acid Calcium Phosphorus Magnesium 1.60 L Iron TIBC AST 64 H ALT Troponin T C-Reactive Protein Total Protein Albumin 2.6 L Triglycerides LDL Cholesterol Direct HDL Cholesterol Urine WBC (Auto) Vancomycin Trough Salicylates Acetaminophen % CD3 Cells % CD19 Cells Absolute CD19 Count Miscellaneous Test Crossmatch 09/02/18 09/03/18 09/03/18 23:06 03:36 04:25 WBC RBC 2.20 L Hgb 6.7 L Hct 20.9 L RDW 21.1 H Plt Count Lymph % (Auto) [place] % (Auto) Lymph # [place] # Seg Neutrophils % Seg Neuts % (Manual) 90.0 H Lymphocytes % (Manual) 5.0 L Nucleated RBC % Seg Neutrophils # Seg Neutrophils # Man 8.7 H Lymphocytes # (Manual) 0.5 L D-Dimer POC ABG pH POC ABG pCO2 POC ABG pO2 54 L VBG pH Sodium Potassium Chloride Carbon Dioxide BUN Creatinine Glucose POC Glucose 121 H Hemoglobin A1c Lactic Acid Calcium Phosphorus Magnesium Iron TIBC AST ALT Troponin T C-Reactive Protein Total Protein Albumin Triglycerides LDL Cholesterol Direct HDL Cholesterol Urine WBC (Auto) Vancomycin Trough Salicylates Acetaminophen % CD3 Cells % CD19 Cells Absolute CD19 Count Miscellaneous Test Crossmatch 09/03/18 09/03/18 09/03/18 04:25 05:45 10:24 WBC RBC Hgb Hct RDW Plt Count Lymph % (Auto) [place] % (Auto) Lymph # [place] # Seg Neutrophils % Seg Neuts % (Manual) Lymphocytes % (Manual) Nucleated RBC % Seg Neutrophils # Seg Neutrophils # Man Lymphocytes # (Manual) D-Dimer POC ABG pH POC ABG pCO2 POC ABG pO2 VBG pH Sodium 158 H Potassium 3.1 L Chloride 120.4 H Carbon Dioxide BUN 25 H Creatinine 0.6 L Glucose 127 H POC Glucose 178 H Hemoglobin A1c Lactic Acid Calcium 7.9 L Phosphorus Magnesium Iron TIBC AST ALT Troponin T C-Reactive Protein Total Protein 6.0 L Albumin 2.4 L Triglycerides LDL Cholesterol Direct HDL Cholesterol Urine WBC (Auto) Vancomycin Trough Salicylates Acetaminophen % CD3 Cells % CD19 Cells Absolute CD19 Count Miscellaneous Test Crossmatch See Detail 09/03/18 09/03/18 09/04/18 11:27 23:09 04:42 WBC RBC Hgb Hct RDW Plt Count Lymph % (Auto) [place] % (Auto) Lymph # [place] # Seg Neutrophils % Seg Neuts % (Manual) Lymphocytes % (Manual) Nucleated RBC % Seg Neutrophils # Seg Neutrophils # Man Lymphocytes # (Manual) D-Dimer POC ABG pH 7.293 L POC ABG pCO2 50.2 H POC ABG pO2 VBG pH Sodium Potassium Chloride Carbon Dioxide BUN Creatinine Glucose POC Glucose 107 H 139 H Hemoglobin A1c Lactic Acid Calcium Phosphorus Magnesium Iron TIBC AST ALT Troponin T C-Reactive Protein Total Protein Albumin Triglycerides LDL Cholesterol Direct HDL Cholesterol Urine WBC (Auto) Vancomycin Trough Salicylates Acetaminophen % CD3 Cells % CD19 Cells Absolute CD19 Count Miscellaneous Test Crossmatch 09/04/18 09/04/18 09/04/18 05:00 06:30 06:30 WBC RBC 2.32 L Hgb 7.0 L Hct 21.9 L RDW 20.2 H Plt Count Lymph % (Auto) [place] % (Auto) Lymph # [place] # Seg Neutrophils % 80.1 H Seg Neuts % (Manual) Lymphocytes % (Manual) Nucleated RBC % Seg Neutrophils # 8.2 H Seg Neutrophils # Man Lymphocytes # (Manual) D-Dimer POC ABG pH POC ABG pCO2 POC ABG pO2 VBG pH Sodium 150 H D Potassium Chloride 115.9 H Carbon Dioxide BUN 21 H Creatinine 0.6 L Glucose 125 H POC Glucose 154 H Hemoglobin A1c Lactic Acid Calcium 7.9 L Phosphorus Magnesium 1.50 L Iron TIBC AST ALT Troponin T C-Reactive Protein Total Protein Albumin Triglycerides LDL Cholesterol Direct HDL Cholesterol Urine WBC (Auto) Vancomycin Trough Salicylates Acetaminophen % CD3 Cells % CD19 Cells Absolute CD19 Count Miscellaneous Test Crossmatch 09/04/18 09/04/18 09/04/18 11:20 11:51 18:27 WBC RBC Hgb Hct RDW Plt Count Lymph % (Auto) [place] % (Auto) Lymph # [place] # Seg Neutrophils % Seg Neuts % (Manual) Lymphocytes % (Manual) Nucleated RBC % Seg Neutrophils # Seg Neutrophils # Man Lymphocytes # (Manual) D-Dimer POC ABG pH 7.244 L POC ABG pCO2 54.2 H POC ABG pO2 62 L VBG pH Sodium Potassium Chloride Carbon Dioxide BUN Creatinine Glucose POC Glucose 156 H 129 H Hemoglobin A1c Lactic Acid Calcium Phosphorus Magnesium Iron TIBC AST ALT Troponin T C-Reactive Protein Total Protein Albumin Triglycerides LDL Cholesterol Direct HDL Cholesterol Urine WBC (Auto) Vancomycin Trough Salicylates Acetaminophen % CD3 Cells % CD19 Cells Absolute CD19 Count Miscellaneous Test Crossmatch 09/05/18 09/05/18 09/05/18 03:46 04:00 04:00 WBC RBC 2.13 L Hgb 6.4 L Hct 20.1 L RDW 19.9 H Plt Count 117 L Lymph % (Auto) [place] % (Auto) Lymph # 0.9 L [place] # Seg Neutrophils % 81.7 H Seg Neuts % (Manual) Lymphocytes % (Manual) Nucleated RBC % Seg Neutrophils # Seg Neutrophils # Man Lymphocytes # (Manual) D-Dimer POC ABG pH 7.282 L POC ABG pCO2 57.3 H POC ABG pO2 124 H VBG pH Sodium Potassium Chloride 111.0 H Carbon Dioxide BUN 20 H Creatinine Glucose 130 H POC Glucose Hemoglobin A1c Lactic Acid Calcium 7.8 L Phosphorus Magnesium 1.60 L Iron TIBC AST ALT Troponin T C-Reactive Protein Total Protein Albumin Triglycerides LDL Cholesterol Direct HDL Cholesterol Urine WBC (Auto) Vancomycin Trough Salicylates Acetaminophen % CD3 Cells % CD19 Cells Absolute CD19 Count Miscellaneous Test Crossmatch 09/05/18 09/05/18 09/05/18 12:15 17:24 23:24 WBC RBC Hgb Hct RDW Plt Count Lymph % (Auto) [place] % (Auto) Lymph # [place] # Seg Neutrophils % Seg Neuts % (Manual) Lymphocytes % (Manual) Nucleated RBC % Seg Neutrophils # Seg Neutrophils # Man Lymphocytes # (Manual) D-Dimer POC ABG pH POC ABG pCO2 POC ABG pO2 VBG pH Sodium Potassium Chloride Carbon Dioxide BUN Creatinine Glucose POC Glucose 143 H 116 H 116 H Hemoglobin A1c Lactic Acid Calcium Phosphorus Magnesium Iron TIBC AST ALT Troponin T C-Reactive Protein Total Protein Albumin Triglycerides LDL Cholesterol Direct HDL Cholesterol Urine WBC (Auto) Vancomycin Trough Salicylates Acetaminophen % CD3 Cells % CD19 Cells Absolute CD19 Count Miscellaneous Test Crossmatch 09/06/18 09/06/18 09/06/18 03:33 04:20 04:20 WBC RBC 2.45 L Hgb 7.4 L Hct 23.0 L RDW 18.1 H Plt Count 99 L Lymph % (Auto) [place] % (Auto) Lymph # 1.0 L [place] # Seg Neutrophils % 78.0 H Seg Neuts % (Manual) Lymphocytes % (Manual) Nucleated RBC % Seg Neutrophils # Seg Neutrophils # Man Lymphocytes # (Manual) D-Dimer POC ABG pH 7.303 L POC ABG pCO2 49.2 H POC ABG pO2 73 L VBG pH Sodium Potassium Chloride 109.3 H Carbon Dioxide BUN 24 H Creatinine Glucose 108 H POC Glucose Hemoglobin A1c Lactic Acid Calcium 8.1 L Phosphorus Magnesium Iron TIBC AST ALT Troponin T C-Reactive Protein Total Protein Albumin Triglycerides LDL Cholesterol Direct HDL Cholesterol Urine WBC (Auto) Vancomycin Trough Salicylates Acetaminophen % CD3 Cells % CD19 Cells Absolute CD19 Count Miscellaneous Test Crossmatch 09/06/18 09/06/18 09/06/18 04:55 11:29 14:40 WBC RBC Hgb Hct RDW Plt Count Lymph % (Auto) [place] % (Auto) Lymph # [place] # Seg Neutrophils % Seg Neuts % (Manual) Lymphocytes % (Manual) Nucleated RBC % Seg Neutrophils # Seg Neutrophils # Man Lymphocytes # (Manual) D-Dimer POC ABG pH POC ABG pCO2 POC ABG pO2 VBG pH Sodium Potassium Chloride Carbon Dioxide BUN Creatinine Glucose POC Glucose 124 H 149 H Hemoglobin A1c Lactic Acid Calcium Phosphorus Magnesium Iron TIBC AST ALT Troponin T C-Reactive Protein Total Protein Albumin Triglycerides LDL Cholesterol Direct HDL Cholesterol Urine WBC (Auto) Vancomycin Trough 28.6 H Salicylates Acetaminophen % CD3 Cells % CD19 Cells Absolute CD19 Count Miscellaneous Test Crossmatch 09/06/18 09/06/18 09/07/18 17:43 20:08 00:39 WBC RBC Hgb Hct RDW Plt Count Lymph % (Auto) [place] % (Auto) Lymph # [place] # Seg Neutrophils % Seg Neuts % (Manual) Lymphocytes % (Manual) Nucleated RBC % Seg Neutrophils # Seg Neutrophils # Man Lymphocytes # (Manual) D-Dimer POC ABG pH POC ABG pCO2 POC ABG pO2 VBG pH Sodium Potassium Chloride Carbon Dioxide BUN Creatinine Glucose POC Glucose 138 H 118 H 131 H Hemoglobin A1c Lactic Acid Calcium Phosphorus Magnesium Iron TIBC AST ALT Troponin T C-Reactive Protein Total Protein Albumin Triglycerides LDL Cholesterol Direct HDL Cholesterol Urine WBC (Auto) Vancomycin Trough Salicylates Acetaminophen % CD3 Cells % CD19 Cells Absolute CD19 Count Miscellaneous Test Crossmatch 09/07/18 09/07/18 09/07/18 05:40 05:40 12:03 WBC RBC 2.40 L Hgb 7.3 L Hct 22.5 L RDW 17.8 H Plt Count 92 L Lymph % (Auto) [place] % (Auto) Lymph # [place] # Seg Neutrophils % Seg Neuts % (Manual) 80.0 H Lymphocytes % (Manual) Nucleated RBC % 1.0 H Seg Neutrophils # Seg Neutrophils # Man Lymphocytes # (Manual) 0.8 L D-Dimer POC ABG pH POC ABG pCO2 POC ABG pO2 VBG pH Sodium Potassium Chloride 109.8 H Carbon Dioxide BUN 26 H Creatinine Glucose 118 H POC Glucose 145 H Hemoglobin A1c Lactic Acid Calcium 8.0 L Phosphorus Magnesium Iron 26 L TIBC 150 L AST 88 H ALT Troponin T C-Reactive Protein Total Protein 5.8 L Albumin 2.1 L Triglycerides LDL Cholesterol Direct HDL Cholesterol Urine WBC (Auto) Vancomycin Trough Salicylates Acetaminophen % CD3 Cells % CD19 Cells Absolute CD19 Count Miscellaneous Test Crossmatch 09/07/18 09/07/18 09/08/18 17:39 23:21 05:48 WBC RBC Hgb Hct RDW Plt Count Lymph % (Auto) [place] % (Auto) Lymph # [place] # Seg Neutrophils % Seg Neuts % (Manual) Lymphocytes % (Manual) Nucleated RBC % Seg Neutrophils # Seg Neutrophils # Man Lymphocytes # (Manual) D-Dimer POC ABG pH POC ABG pCO2 POC ABG pO2 VBG pH Sodium Potassium Chloride Carbon Dioxide BUN Creatinine Glucose POC Glucose 128 H 136 H 129 H Hemoglobin A1c Lactic Acid Calcium Phosphorus Magnesium Iron TIBC AST ALT Troponin T C-Reactive Protein Total Protein Albumin Triglycerides LDL Cholesterol Direct HDL Cholesterol Urine WBC (Auto) Vancomycin Trough Salicylates Acetaminophen % CD3 Cells % CD19 Cells Absolute CD19 Count Miscellaneous Test Crossmatch 09/08/18 09/08/18 09/08/18 06:17 10:06 10:42 WBC RBC Hgb Hct RDW Plt Count Lymph % (Auto) [place] % (Auto) Lymph # [place] # Seg Neutrophils % Seg Neuts % (Manual) Lymphocytes % (Manual) Nucleated RBC % Seg Neutrophils # Seg Neutrophils # Man Lymphocytes # (Manual) D-Dimer POC ABG pH 7.292 L 7.276 L POC ABG pCO2 56.9 H 65.1 H POC ABG pO2 VBG pH Sodium 146 H Potassium Chloride 109.1 H Carbon Dioxide BUN 28 H Creatinine Glucose 165 H POC Glucose Hemoglobin A1c Lactic Acid Calcium Phosphorus Magnesium Iron TIBC AST ALT Troponin T C-Reactive Protein Total Protein Albumin Triglycerides LDL Cholesterol Direct HDL Cholesterol Urine WBC (Auto) Vancomycin Trough Salicylates Acetaminophen % CD3 Cells % CD19 Cells Absolute CD19 Count Miscellaneous Test Crossmatch 09/08/18 09/08/18 09/08/18 11:06 18:07 23:20 WBC RBC Hgb Hct RDW Plt Count Lymph % (Auto) [place] % (Auto) Lymph # [place] # Seg Neutrophils % Seg Neuts % (Manual) Lymphocytes % (Manual) Nucleated RBC % Seg Neutrophils # Seg Neutrophils # Man Lymphocytes # (Manual) D-Dimer POC ABG pH POC ABG pCO2 POC ABG pO2 VBG pH Sodium Potassium Chloride Carbon Dioxide BUN Creatinine Glucose POC Glucose 165 H 140 H 124 H Hemoglobin A1c Lactic Acid Calcium Phosphorus Magnesium Iron TIBC AST ALT Troponin T C-Reactive Protein Total Protein Albumin Triglycerides LDL Cholesterol Direct HDL Cholesterol Urine WBC (Auto) Vancomycin Trough Salicylates Acetaminophen % CD3 Cells % CD19 Cells Absolute CD19 Count Miscellaneous Test Crossmatch 09/09/18 09/09/18 09/09/18 05:04 08:39 08:39 WBC RBC 2.60 L Hgb 8.1 L Hct 24.6 L RDW 17.9 H Plt Count Lymph % (Auto) [place] % (Auto) Lymph # [place] # Seg Neutrophils % Seg Neuts % (Manual) Lymphocytes % (Manual) Nucleated RBC % Seg Neutrophils # Seg Neutrophils # Man Lymphocytes # (Manual) D-Dimer POC ABG pH POC ABG pCO2 POC ABG pO2 VBG pH Sodium Potassium Chloride Carbon Dioxide BUN 32 H Creatinine Glucose 150 H POC Glucose 168 H Hemoglobin A1c Lactic Acid Calcium Phosphorus Magnesium Iron TIBC AST ALT Troponin T C-Reactive Protein Total Protein Albumin Triglycerides LDL Cholesterol Direct HDL Cholesterol Urine WBC (Auto) Vancomycin Trough Salicylates Acetaminophen % CD3 Cells % CD19 Cells Absolute CD19 Count Miscellaneous Test Crossmatch 09/09/18 09/10/18 09/10/18 12:41 04:20 04:20 WBC RBC 2.49 L Hgb 7.7 L Hct 23.4 L RDW 18.0 H Plt Count Lymph % (Auto) 8.2 L [place] % (Auto) Lymph # 0.7 L [place] # Seg Neutrophils % 87.7 H Seg Neuts % (Manual) Lymphocytes % (Manual) Nucleated RBC % Seg Neutrophils # Seg Neutrophils # Man Lymphocytes # (Manual) D-Dimer POC ABG pH POC ABG pCO2 POC ABG pO2 VBG pH Sodium Potassium Chloride Carbon Dioxide 31 H BUN 39 H Creatinine Glucose 183 H POC Glucose 150 H Hemoglobin A1c Lactic Acid Calcium Phosphorus Magnesium Iron TIBC AST 85 H ALT 58 H Troponin T C-Reactive Protein Total Protein Albumin 2.5 L Triglycerides LDL Cholesterol Direct HDL Cholesterol Urine WBC (Auto) Vancomycin Trough Salicylates Acetaminophen % CD3 Cells % CD19 Cells Absolute CD19 Count Miscellaneous Test Crossmatch 09/10/18 09/10/18 09/10/18 04:39 05:06 11:17 WBC RBC Hgb Hct RDW Plt Count Lymph % (Auto) Granite % (Auto) Lymph # Granite # Seg Neutrophils % Seg Neuts % (Manual) Lymphocytes % (Manual) Nucleated RBC % Seg Neutrophils # Seg Neutrophils # Man Lymphocytes # (Manual) D-Dimer POC ABG pH POC ABG pCO2 51.4 H POC ABG pO2 VBG pH Sodium Potassium Chloride Carbon Dioxide BUN Creatinine Glucose POC Glucose 185 H 159 H Hemoglobin A1c Lactic Acid Calcium Phosphorus Magnesium Iron TIBC AST ALT Troponin T C-Reactive Protein Total Protein Albumin Triglycerides LDL Cholesterol Direct HDL Cholesterol Urine WBC (Auto) Vancomycin Trough Salicylates Acetaminophen % CD3 Cells % CD19 Cells Absolute CD19 Count Miscellaneous Test Crossmatch 09/10/18 09/11/18 09/11/18 16:57 00:17 01:10 WBC RBC Hgb Hct RDW Plt Count Lymph % (Auto) Granite % (Auto) Lymph # [place] # Seg Neutrophils % Seg Neuts % (Manual) Lymphocytes % (Manual) Nucleated RBC % Seg Neutrophils # Seg Neutrophils # Man Lymphocytes # (Manual) D-Dimer POC ABG pH POC ABG pCO2 POC ABG pO2 VBG pH Sodium Potassium Chloride Carbon Dioxide 34 H BUN 44 H Creatinine Glucose 154 H POC Glucose 177 H 163 H Hemoglobin A1c Lactic Acid Calcium Phosphorus Magnesium Iron TIBC AST 86 H ALT 68 H Troponin T C-Reactive Protein Total Protein Albumin 2.6 L Triglycerides LDL Cholesterol Direct HDL Cholesterol Urine WBC (Auto) Vancomycin Trough Salicylates Acetaminophen % CD3 Cells % CD19 Cells Absolute CD19 Count Miscellaneous Test Crossmatch 09/11/18 09/11/18 09/11/18 01:10 06:03 09:00 WBC 13.7 H RBC 2.61 L Hgb 8.0 L Hct 24.6 L RDW 19.1 H Plt Count Lymph % (Auto) 6.1 L Granite % (Auto) Lymph # 0.8 L [place] # Seg Neutrophils % 87.7 H Seg Neuts % (Manual) Lymphocytes % (Manual) Nucleated RBC % Seg Neutrophils # 12.0 H Seg Neutrophils # Man Lymphocytes # (Manual) D-Dimer POC ABG pH POC ABG pCO2 POC ABG pO2 VBG pH Sodium Potassium Chloride Carbon Dioxide 33 H BUN 45 H Creatinine Glucose 147 H POC Glucose 180 H Hemoglobin A1c Lactic Acid Calcium Phosphorus Magnesium Iron TIBC AST ALT Troponin T C-Reactive Protein Total Protein Albumin Triglycerides LDL Cholesterol Direct HDL Cholesterol Urine WBC (Auto) Vancomycin Trough Salicylates Acetaminophen % CD3 Cells % CD19 Cells Absolute CD19 Count Miscellaneous Test Crossmatch 09/11/18 09/11/18 09/11/18 11:14 11:31 17:11 WBC RBC Hgb Hct RDW Plt Count Lymph % (Auto) Granite % (Auto) Lymph # [place] # Seg Neutrophils % Seg Neuts % (Manual) Lymphocytes % (Manual) Nucleated RBC % Seg Neutrophils # Seg Neutrophils # Man Lymphocytes # (Manual) D-Dimer POC ABG pH 7.498 H POC ABG pCO2 46.3 H POC ABG pO2 VBG pH Sodium Potassium Chloride Carbon Dioxide BUN Creatinine Glucose POC Glucose 163 H 202 H Hemoglobin A1c Lactic Acid Calcium Phosphorus Magnesium Iron TIBC AST ALT Troponin T C-Reactive Protein Total Protein Albumin Triglycerides LDL Cholesterol Direct HDL Cholesterol Urine WBC (Auto) Vancomycin Trough Salicylates Acetaminophen % CD3 Cells % CD19 Cells Absolute CD19 Count Miscellaneous Test Crossmatch 09/11/18 09/12/18 09/12/18 23:49 03:16 05:30 WBC RBC 2.36 L Hgb 7.3 L Hct 22.3 L RDW 18.4 H Plt Count Lymph % (Auto) 13.0 L Granite % (Auto) 9.3 H Lymph # 1.1 L [place] # Seg Neutrophils % 77.5 H Seg Neuts % (Manual) Lymphocytes % (Manual) Nucleated RBC % Seg Neutrophils # Seg Neutrophils # Man Lymphocytes # (Manual) D-Dimer POC ABG pH 7.517 H POC ABG pCO2 48.8 H POC ABG pO2 VBG pH Sodium Potassium Chloride Carbon Dioxide BUN Creatinine Glucose POC Glucose 163 H Hemoglobin A1c Lactic Acid Calcium Phosphorus Magnesium Iron TIBC AST ALT Troponin T C-Reactive Protein Total Protein Albumin Triglycerides LDL Cholesterol Direct HDL Cholesterol Urine WBC (Auto) Vancomycin Trough Salicylates Acetaminophen % CD3 Cells % CD19 Cells Absolute CD19 Count Miscellaneous Test Crossmatch 09/12/18 09/12/18 09/12/18 05:30 06:07 11:36 WBC RBC Hgb Hct RDW Plt Count Lymph % (Auto) Granite % (Auto) Lymph # [place] # Seg Neutrophils % Seg Neuts % (Manual) Lymphocytes % (Manual) Nucleated RBC % Seg Neutrophils # Seg Neutrophils # Man Lymphocytes # (Manual) D-Dimer POC ABG pH POC ABG pCO2 POC ABG pO2 VBG pH Sodium 148 H Potassium Chloride Carbon Dioxide 36 H BUN 46 H Creatinine Glucose 152 H POC Glucose 172 H 212 H Hemoglobin A1c Lactic Acid Calcium Phosphorus Magnesium Iron TIBC AST ALT Troponin T C-Reactive Protein Total Protein Albumin Triglycerides LDL Cholesterol Direct HDL Cholesterol Urine WBC (Auto) Vancomycin Trough Salicylates Acetaminophen % CD3 Cells % CD19 Cells Absolute CD19 Count Miscellaneous Test Crossmatch 09/12/18 09/12/18 09/13/18 18:02 23:19 03:55 WBC RBC Hgb Hct RDW Plt Count Lymph % (Auto) Granite % (Auto) Lymph # [place] # Seg Neutrophils % Seg Neuts % (Manual) Lymphocytes % (Manual) Nucleated RBC % Seg Neutrophils # Seg Neutrophils # Man Lymphocytes # (Manual) D-Dimer POC ABG pH 7.520 H POC ABG pCO2 48.0 H POC ABG pO2 58 L VBG pH Sodium Potassium Chloride Carbon Dioxide BUN Creatinine Glucose POC Glucose 142 H 161 H Hemoglobin A1c Lactic Acid Calcium Phosphorus Magnesium Iron TIBC AST ALT Troponin T C-Reactive Protein Total Protein Albumin Triglycerides LDL Cholesterol Direct HDL Cholesterol Urine WBC (Auto) Vancomycin Trough Salicylates Acetaminophen % CD3 Cells % CD19 Cells Absolute CD19 Count Miscellaneous Test Crossmatch 09/13/18 09/13/18 09/13/18 05:11 05:25 05:25 WBC RBC 2.38 L Hgb 7.6 L Hct 22.4 L RDW 18.6 H Plt Count Lymph % (Auto) Granite % (Auto) Lymph # [place] # Seg Neutrophils % Seg Neuts % (Manual) Lymphocytes % (Manual) Nucleated RBC % Seg Neutrophils # Seg Neutrophils # Man Lymphocytes # (Manual) D-Dimer POC ABG pH POC ABG pCO2 POC ABG pO2 VBG pH Sodium Potassium 3.2 L Chloride 97.5 L Carbon Dioxide 38 H BUN 38 H Creatinine 0.6 L Glucose 120 H POC Glucose 139 H Hemoglobin A1c Lactic Acid Calcium 8.1 L Phosphorus Magnesium Iron TIBC AST 120 H ALT 124 H Troponin T C-Reactive Protein Total Protein 5.9 L Albumin 2.6 L Triglycerides LDL Cholesterol Direct HDL Cholesterol Urine WBC (Auto) Vancomycin Trough Salicylates Acetaminophen % CD3 Cells % CD19 Cells Absolute CD19 Count Miscellaneous Test Crossmatch 09/13/18 09/13/18 09/13/18 11:31 17:46 23:23 WBC RBC Hgb Hct RDW Plt Count Lymph % (Auto) Granite % (Auto) Lymph # [place] # Seg Neutrophils % Seg Neuts % (Manual) Lymphocytes % (Manual) Nucleated RBC % Seg Neutrophils # Seg Neutrophils # Man Lymphocytes # (Manual) D-Dimer POC ABG pH POC ABG pCO2 POC ABG pO2 VBG pH Sodium Potassium Chloride Carbon Dioxide BUN Creatinine Glucose POC Glucose 160 H 145 H 135 H Hemoglobin A1c Lactic Acid Calcium Phosphorus Magnesium Iron TIBC AST ALT Troponin T C-Reactive Protein Total Protein Albumin Triglycerides LDL Cholesterol Direct HDL Cholesterol Urine WBC (Auto) Vancomycin Trough Salicylates Acetaminophen % CD3 Cells % CD19 Cells Absolute CD19 Count Miscellaneous Test Crossmatch 09/14/18 09/14/18 09/14/18 03:56 04:55 04:55 WBC RBC 2.28 L Hgb 7.1 L Hct 21.4 L RDW 18.2 H Plt Count Lymph % (Auto) Granite % (Auto) Lymph # [place] # Seg Neutrophils % 76.4 H Seg Neuts % (Manual) Lymphocytes % (Manual) Nucleated RBC % Seg Neutrophils # Seg Neutrophils # Man Lymphocytes # (Manual) D-Dimer POC ABG pH 7.503 H POC ABG pCO2 49.1 H POC ABG pO2 79 L VBG pH Sodium Potassium Chloride 97.7 L Carbon Dioxide 35 H BUN 32 H Creatinine 0.6 L Glucose 114 H POC Glucose Hemoglobin A1c Lactic Acid Calcium Phosphorus Magnesium Iron TIBC AST 60 H ALT 88 H Troponin T C-Reactive Protein Total Protein 5.6 L Albumin 2.2 L Triglycerides LDL Cholesterol Direct HDL Cholesterol Urine WBC (Auto) Vancomycin Trough Salicylates Acetaminophen % CD3 Cells % CD19 Cells Absolute CD19 Count Miscellaneous Test Crossmatch 09/14/18 09/14/18 09/14/18 05:14 12:00 12:27 WBC RBC Hgb Hct RDW Plt Count Lymph % (Auto) [place] % (Auto) Lymph # [place] # Seg Neutrophils % Seg Neuts % (Manual) Lymphocytes % (Manual) Nucleated RBC % Seg Neutrophils # Seg Neutrophils # Man Lymphocytes # (Manual) D-Dimer POC ABG pH POC ABG pCO2 POC ABG pO2 VBG pH Sodium Potassium Chloride Carbon Dioxide BUN Creatinine Glucose POC Glucose 115 H 125 H Hemoglobin A1c Lactic Acid Calcium Phosphorus Magnesium Iron TIBC AST ALT Troponin T C-Reactive Protein Total Protein Albumin Triglycerides LDL Cholesterol Direct HDL Cholesterol Urine WBC (Auto) Vancomycin Trough Salicylates Acetaminophen % CD3 Cells % CD19 Cells Absolute CD19 Count Miscellaneous Test Crossmatch See Detail 09/14/18 09/15/18 09/15/18 17:54 03:49 04:10 WBC RBC 2.46 L Hgb 7.7 L Hct 23.0 L RDW 18.6 H Plt Count Lymph % (Auto) Granite % (Auto) Lymph # 1.1 L [place] # Seg Neutrophils % 74.2 H Seg Neuts % (Manual) Lymphocytes % (Manual) Nucleated RBC % Seg Neutrophils # Seg Neutrophils # Man Lymphocytes # (Manual) D-Dimer POC ABG pH POC ABG pCO2 58.2 H POC ABG pO2 VBG pH Sodium Potassium Chloride Carbon Dioxide BUN Creatinine Glucose POC Glucose 138 H Hemoglobin A1c Lactic Acid Calcium Phosphorus Magnesium Iron TIBC AST ALT Troponin T C-Reactive Protein Total Protein Albumin Triglycerides LDL Cholesterol Direct HDL Cholesterol Urine WBC (Auto) Vancomycin Trough Salicylates Acetaminophen % CD3 Cells % CD19 Cells Absolute CD19 Count Miscellaneous Test Crossmatch 09/15/18 09/15/18 09/15/18 04:10 11:36 11:36 WBC RBC Hgb Hct RDW Plt Count Lymph % (Auto) [place]ite % (Auto) Lymph # [place] # Seg Neutrophils % Seg Neuts % (Manual) Lymphocytes % (Manual) Nucleated RBC % Seg Neutrophils # Seg Neutrophils # Man Lymphocytes # (Manual) D-Dimer POC ABG pH POC ABG pCO2 53.5 H POC ABG pO2 67 L VBG pH Sodium Potassium Chloride Carbon Dioxide 35 H BUN 21 H Creatinine Glucose POC Glucose 108 H Hemoglobin A1c Lactic Acid Calcium 7.9 L Phosphorus Magnesium Iron TIBC AST ALT Troponin T C-Reactive Protein Total Protein Albumin Triglycerides LDL Cholesterol Direct HDL Cholesterol Urine WBC (Auto) Vancomycin Trough Salicylates Acetaminophen % CD3 Cells % CD19 Cells Absolute CD19 Count Miscellaneous Test Crossmatch 09/16/18 09/16/18 01:16 04:25 WBC RBC Hgb Hct RDW Plt Count Lymph % (Auto) Granite % (Auto) Lymph # [place] # Seg Neutrophils % Seg Neuts % (Manual) Lymphocytes % (Manual) Nucleated RBC % Seg Neutrophils # Seg Neutrophils # Man Lymphocytes # (Manual) D-Dimer POC ABG pH 7.489 H POC ABG pCO2 47.6 H POC ABG pO2 62 L VBG pH Sodium Potassium Chloride Carbon Dioxide BUN Creatinine Glucose POC Glucose 108 H Hemoglobin A1c Lactic Acid Calcium Phosphorus Magnesium Iron TIBC AST ALT Troponin T C-Reactive Protein Total Protein Albumin Triglycerides LDL Cholesterol Direct HDL Cholesterol Urine WBC (Auto) Vancomycin Trough Salicylates Acetaminophen % CD3 Cells % CD19 Cells Absolute CD19 Count Miscellaneous Test Crossmatch Chest x-ray: image reviewed Allied health notes reviewed: RT (Wean down FIO2 to 60% then start weaning PEEP)
[2018-09-16] MEDS: ARIXTRA SUB-Q SCH (09:58)
[2018-09-16] MEDS: COREG PO SCH ×2 (09:59→21:32)
[2018-09-16] MEDS: LASIX PO SCH (09:59)
[2018-09-16] MEDS: PEPCID PO SCH ×2 (10:00→21:34)
[2018-09-16] MEDS: SENOKOT S PO SCH ×2 (10:00→21:33)
[2018-09-16] MEDS: BROVANA NEBU IH SCH ×2 (10:09→19:11)
[2018-09-16] MEDS: PULMICORT IH SCH ×2 (10:09→19:11)
--- NOTE | 2018-09-16 11:26 | Progress Note ---
Assessment and Plan Cultures: 08/15/2018 blood culture: Camryn glabrata 1 of 4 08/15/2018 sputum culture: MSSA and Escherichia coli, wade susceptible 08/18/2018 blood culture: no growth 08/18/2018 urine culture: neg 08/22/2018 blood culture: no growth 08/25/2018 blood culture: no growth 09/02/2018 BAL cultures: resp almaz. Fungal and AFB pending: No growth thus far. 09/04/2018 blood culture: no growth thus far 09/04/2018 trach aspirate: no growth Fungitell was high (consistent with Candidemia), Aspergillus galactomannan negative. 09/13/2018 blood culture: no growth A/P: 68-year-old female with COPD, arthritis, history of multiple spinal surgeries was brought to the emergency room on 08/15/2018 with altered mental status: 1) Sepsis with septic shock: resolved. New fever 09/13 and 09/14. Etiology uncl ear. Blood cultures 09/13/2018 negative. Has indwelling PICC and Manrique. ?sinusitis, from prolonged intubation. Was noted on earlier head CT. ?UTI. Recent CT abd showed new bilateral effusions, anasarca, and decreased bilateral consolidation. 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 Patient without any history of indwelling PICC line, TPN or immunocompromised status. reported severe explosive diarrhea, N/V before admission after taken 4 days of amoxicillin for dental implant on 07/29/2018 and had a EGD / colonoscopy on 08/08/[address] [facility] [address] Alcantara. I reviewed report - mild chronic gastritis, focal intestinal metaplasia, squamocolumnar mucosa with mild reflux-type changes, and tubular adenoma. -s/p fluconazole 800 mg loading dose then micafungin, s/p amphotericin D6 on 08/26 -serum Crypto negative. -08/15/2018 blood culture: Camryn glabrata -08/18/2018 blood culture: no growth -CTA chest showed limited study due to respiratory motion artifact. No evidence of pulmonary embolism. Abnormal bilateral lung consolidation which may represent pulmonary edema or pneumonia. Mild cardiomegaly. Indeterminant mediastinal lymph nodes. -CT abdomen showed extensive bilateral lower lobe pulmonary infiltrates, rectal tube and Manrique catheter noted. NG tube at gastric antrum. Left hip prosthesis Extensive degenerative changes noted lumbar spine -TTE EF 25-30% no vegetations -HIV neg/ CD4 1004 -reviewed CT chest abd done 01/05/2019 showed cholecystectomy, mild fatty liver, postoperative changes of lumbar laminectomy with non specific fluid, 9 mm LLL pulmonary nodule which was compared to previous CT and was stable. -CRP 10-->5 3) Acute renal failure: On admission: improved. 4) Acute respiratory failure: Back on the vent. Recently completed pneumonia treatment. WBC up and low grade fever. Underwent bronch + BAL on 09/02/2018. Cultu res with no growth thus far. On abx. CTA chest 09/06/2018 negative for PE, bilateral air space disease, no air bronchograms as such. High oxygen requirements, ?ARDS v/s fluid overload. 5) Right maxillary sinusitis: received empiric abx. 6) Acute encephalopathy: Likely multifactorial. CT head unremarkable for acute intracranial process. 7) Cardiomyopathy, LVEF 25-30% this admission. 8) H/O left hip prosthesis ? XR no effusion. CT with no enhancement 9) Left leg DVT: on anticoagulation. Hematology following. 10) Mild transaminitis: monitor for now. RUQ US unremarkable. Recs: stop IV Zosyn D3 of 5 due to acute diarrhea start cefepime for now remove manrique -discussed with Dr [place] follow up blood cultures and procalcitonin to have PEG by IR hopefully will remove NGT soon Dr Pradhan will be covering the weekend Yasmin Alvarez MD Infectious Diseases Market Director [facility] M [phone] O [phone] Subjective Date of service: 09/16/18 Principal diagnosis: anemia - DVT leg Interval history: Remainson the vent via trach fiO2 45%, p 8, alert, following commands, no fever for 3 days, noted one loose stool. ROS: unable to obtain Objective - Exam Narrative Exam: Constitutional: alert follows commands, intubated fiO2 35%, p8 Head, Ears, Nose: Normocephalic, atraumatic. External ears, nose normal Eyes: Conjunctivae/corneas clear. No icterus. No ptosis. Neck:+trach no secretion Oral: clear OP Cardiovascular: RRR Respiratory: CTA gonzalez GI: Soft, non-tender; bowel sounds normal. No peritoneal signs Musculoskeletal: gonzalez arm edema Skin: No rash or abscess Hem/Lymphatic: No palpable cervical or supraclavicular nodes. No lymphangitis Psych: no agitation Neurological: alert follows commands Rectal tube with diarrhea - Constitutional Vitals: Vital Signs Temp Pulse Resp BP Pulse Ox 98.4 F 75 22 132/56 94 09/16/18 04:00 09/16/18 11:01 09/16/18 11:01 09/16/18 11:01 09/16/18 11:01 Temperature -Last 24 Hours Temperature 98.4 F Temperature 98.1 F Temperature 99.8 F Temperature 99.7 F Temperature 98.9 F - Labs CBC & Chem 7: 09/15/18 04:10 09/15/18 04:10 Labs: Abnormal lab results 09/15/18 09/15/18 09/16/18 Range/Units 11:36 11:36 01:16 POC ABG pH (7.35-7.45) POC ABG pCO2 53.5 H (35-45) POC ABG pO2 67 L (80-105) POC Glucose 108 H 108 H (70-105) 09/16/18 Range/Units 04:25 POC ABG pH 7.489 H (7.35-7.45) POC ABG pCO2 47.6 H (35-45) POC ABG pO2 62 L (80-105) POC Glucose (70-105)
[2018-09-16 11:42] LABS: Hematocrit 25.6 % (30.3-42.9); Hemoglobin 8.5 gm/dl (10.1-14.3); Mean Corpuscular HGB Conc 33 % (30-34); Mean Corpuscular Volume 93 fl (79-97); Platelet Count 175 K/mm3 (140-440); Red Blood Count 2.77 M/mm3 (3.65-5.03); Red Cell Distribution Width 17.9 % (13.2-15.2)
[2018-09-16 12:07] LABS: BUN/Creatinine Ratio 20; Blood Urea Nitrogen 16 mg/dL (7-17); Calcium 8.5 mg/dL (8.4-10.2); Hemolysis Index 0
--- NOTE | 2018-09-16 12:55 | Consultation ---
History of Present Illness - Reason for Consult Consult date: 09/16/18 - History of Present Illness Patient with a history of altered mental status status post tracheostomy. PEG tube was unavailable to be placed secondary to non-transillumination. Consult for placement of PEG tube. Her CT of the chest was reviewed and the patient does appear to have appropriate anatomy percutaneous placement of the tube. Evaluated the patient. While the patient does not verbalize, she appears to understand the discussion and is in agreement to have the PEG tube placed. Patient currently receiving tube feeds through a [facility] Past History Past Medical History: COPD Past Surgical History: Other (Neck and back surgery) Social history: , lives with family, full code Family history: other (unable to obtain, no family at bedside) Medications and Allergies Allergies Allergy/AdvReac Type Severity Reaction Status Date / Time No Known Allergies Allergy Unverified 08/15/18 16:49 Home Medications Medication Instructions Recorded Confirmed Last Taken Type Carvedilol 6.25 mg PO BID 08/15/18 08/15/18 Unknown History DULoxetine 60 mg PO QDAY 08/15/18 08/15/18 Unknown History Gabapentin 600 mg PO Q6HR PRN 08/15/18 08/15/18 Unknown History Methylphenidate 5 mg PO TID 08/15/18 08/15/18 Unknown History Morphabond ER 60 mg PO Q12HR 08/15/18 08/15/18 Unknown History Pravastatin Sodium 10 mg PO QDAY 08/15/18 08/15/18 Unknown History Tizanidine HCl 4 mg PO Q12HR 08/15/18 08/15/18 Unknown History oxyCODONE /ACETAMINOPHEN 7.5 - 325 mg PO Q8HR 08/15/18 08/15/18 Unknown History ALBUTEROL Inhaler(NF) 90 mcg IH TID 08/29/18 08/29/18 Unknown History Omeprazole-Bicarb 40-1,100 Cap 40 mg PO DAILY 08/29/18 08/29/18 Unknown History Active Meds: Active Medications Acetaminophen (Tylenol) 650 mg PO Q4H PRN PRN Reason: Pain MILD(1-3)/Fever >100.5/[place]DRAG[place] Last Admin: 09/14/18 03:55 Dose: 650 mg Documented by: Albuterol (Proventil) 2.5 mg IH Q3HRT PRN PRN Reason: Shortness Of Breath Albuterol/Ipratropium (Duoneb *Not For Prn Use*) 1 ampul IH Q6HRT [facility] Last Admin: 09/16/18 10:09 Dose: 1 ampul Documented by: Lipase/Protease/Amylase (Alis Elizabeth 10,500 Unit) 1 each FEEDTUBE PRN PRN PRN Reason: For Clogged Feeding Tube Arformoterol Tartrate (Brovana Nebu) 15 mcg IH Q12HRT [facility] Last Admin: 09/16/18 10:09 Dose: 15 mcg Documented by: Budesonide (Pulmicort) 0.5 mg IH Q12HRT [facility] Last Admin: 09/16/18 10:09 Dose: 0.5 mg Documented by: Carvedilol (Coreg) 3.125 mg PO BID [facility] Last Admin: 09/16/18 09:59 Dose: 3.125 mg Documented by: Famotidine (Pepcid) 20 mg PO BID [facility] Last Admin: 09/16/18 10:00 Dose: 20 mg Documented by: Fondaparinux (Arixtra) 7.5 mg SUB-Q DAILY [facility] Last Admin: 09/16/18 09:58 Dose: 7.5 mg Documented by: Furosemide (Lasix) 20 mg PO QAM [facility] Last Admin: 09/16/18 09:59 Dose: 20 mg Documented by: Hydralazine HCl (Apresoline) 10 mg IV Q3H PRN Last Admin: 09/10/18 19:32 Dose: 10 mg Documented by: Hydralazine HCl (Apresoline) 25 mg PO Q8HR [facility] Last Admin: 09/16/18 07:08 Dose: 25 mg Documented by: Hydromorphone HCl (Dilaudid) 1 mg IV Q4H PRN PRN Reason: Pain , Severe (7-10) Last Admin: 09/12/18 16:30 Dose: 1 mg Documented by: Hydromorphone HCl (Dilaudid) 2 mg PO Q6HR [facility] Last Admin: 09/16/18 07:08 Dose: 2 mg Documented by: Hydrophilic Ointment (Vaseline Lip Therapy) 1 applic TP Q2HR PRN PRN Reason: Dry Lips Last Admin: 09/01/18 09:07 Dose: 1 applic Documented by: Fentanyl Citrate (Fentanyl Drip Premix) 2,000 mcg in 100 mls @ 4.765 mls/hr IV TITR [facility]; Protocol Last Titration: 09/16/18 07:40 Dose: Infused Documented by: Piperacillin Sod/Tazobactam Sod (Zosyn/Ns 4.5gm/100ml) 4.5 gm in 100 mls @ 200 mls/hr IV Q6HR [facility]; Protocol Last Admin: 09/16/18 07:17 Dose: 200 mls/hr Documented by: Insulin Human Lispro (Humalog) 0 unit SUB-Q Q6HR [facility]; Protocol Last Admin: 09/16/18 07:05 Dose: Not Given Documented by: Metoclopramide HCl (Reglan) 5 mg IV Q6H PRN PRN Reason: Nausea And Vomiting Midazolam HCl (Versed) 1 mg IV Q4H PRN PRN Reason: AGITATION Last Admin: 09/12/18 17:34 Dose: 1 mg Documented by: Ondansetron HCl (Zofran) 4 mg IV Q8H PRN PRN Reason: Nausea And Vomiting Last Admin: 08/31/18 17:52 Dose: 4 mg Documented by: Quetiapine Fumarate (Seroquel) 200 mg PO BID [facility] Last Admin: 09/16/18 10:00 Dose: 200 mg Documented by: Senna/Docusate Sodium (Senokot S) 2 tab PO BID [facility] Last Admin: 09/16/18 10:00 Dose: 2 tab Documented by: Simple Syrup (Simple Syrup) 15 ml FEEDTUBE PRN PRN PRN Reason: Hypoglycemia Simple Syrup (Simple Syrup) 30 ml FEEDTUBE PRN PRN PRN Reason: Hypoglycemia Sodium Bicarbonate (Sodium Bicarbonate) 325 mg FEEDTUBE PRN PRN PRN Reason: For Clogged Feeding Tube Sodium Chloride (Sodium Chloride Flush Syringe 10 Ml) 10 ml IV PRN PRN PRN Reason: LINE FLUSH Last Admin: 09/12/18 22:05 Dose: 10 ml Documented by: Review of Systems ROS unobtainable: due to endotracheal tube Exam - Constitutional Vitals: Temp Pulse Resp BP Pulse Ox 98.4 F 81 14 147/68 92 09/16/18 04:00 09/16/18 12:00 09/16/18 12:00 09/16/18 12:00 09/16/18 12:00 General appearance: Present: no acute distress - EENT Eyes: Present: EOM intact - Neck Neck: Present: supple - Respiratory Respiratory effort: normal - Abdominal General gastrointestinal: Present: soft Female genitourinary: Present: deferred - Rectal Rectal Exam: deferred Results - Labs CBC & Chem 7: 09/16/18 11:30 09/16/18 11:30 Labs: Abnormal lab results 09/16/18 09/16/18 09/16/18 Range/Units 01:16 04:25 11:30 RBC 2.77 L (3.65-5.03) M/mm3 Hgb 8.5 L (10.1-14.3) gm/dl Hct 25.6 L (30.3-42.9) % RDW 17.9 H (13.2-15.2) % POC ABG pH 7.489 H (7.35-7.45) POC ABG pCO2 47.6 H (35-45) POC ABG pO2 62 L (80-105) Potassium (3.6-5.0) mmol/L Chloride (98-107) mmol/L Carbon Dioxide (22-30) mmol/L Glucose (65-100) mg/dL POC Glucose 108 H (70-105) 09/16/18 Range/Units 11:30 RBC (3.65-5.03) M/mm3 Hgb (10.1-14.3) gm/dl Hct (30.3-42.9) % RDW (13.2-15.2) % POC ABG pH (7.35-7.45) POC ABG pCO2 (35-45) POC ABG pO2 (80-105) Potassium 3.2 L (3.6-5.0) mmol/L Chloride 96.6 L (98-107) mmol/L Carbon Dioxide 34 H (22-30) mmol/L Glucose 128 H (65-100) mg/dL POC Glucose (70-105) Assessment and Plan We'll plan on percutaneous placement of PEG tube on Wednesday.
[2018-09-16] MEDS ORDERED: PANCREAZE DR 10,500 UNIT FEEDTUBE PRN (15:36)
[2018-09-16] MEDS ORDERED: SIMPLE SYRUP FEEDTUBE PRN ×2 (15:36)
[2018-09-16] MEDS ORDERED: SODIUM BICARBONATE FEEDTUBE PRN (15:36)
--- NOTE | 2018-09-16 15:42 | Progress Note ---
Assessment and Plan /Acute hypoxic hypercapnic respiratory failure; extubated 08/29/18 Re Intubated 09/02/18, vent dependent s/p trach on 09/14/18 Status post bronchoscopy, BAL negative cont nebulizers, pulmonary following /Dysphagia - cannot be placed PEG as could not be transilluminated stomach on EGD - Now planned to get PEG done by IR on Wednesday, cont TF with dobhoff /Thrombocytopenia: Platelet count is Stable Lovenox changed to Arixtra /Anemia: s/p transfusion[4 PRBC] Stool for occult blood x 2 negative, hematology following will transfuse additional unit -Recent EGD at [facility] 08/08/2018 revealing irregular Z line, gastritis and small hiatal hernia - Recent colonoscopy at [facility] 08/08/2018 revealing sigmoid polyp, transverse colon polyps, inflamed hemorrhoids and diverticulosis /Febrile illness; resolved, likely from PNA/sepsis /Hypomagnesemia; Hypernatremia; resolved, /Bileral lower extremity DVT; anticoagulation with arixtra CTA chest negative for PE /Sepsis; due to aspiration pneumonia ; s/p micafungin, meropenem and Vanco per ID Monitor off antibiotics /Hypertension; continue current antihypertensives /Severe malnutrition/hypoalbuminemia; Dietitian following, On TF /Acute kidney injury; probably secondary to ATN, Resolved, /Acute systolic congestive heart failure; EF 25-30%, Cardio following, monitor ins/os Previous echo 03/30/2016 at [facility] revealed normal LVEF Previous stress MPI 03/29/2016 at [facility] revealed no ischemia /Elevated Transaminases; resolved /-DVT prophylaxis; on full dose arixtra, on hold now for possible trach/peg tomorrow Consults and recommendations noted and appreciated Plan of care reviewed with the patient's nurse The high probability of a clinically significant, sudden or life threatening deterioration of the [respiratory, cardiology, ID, renal and metabolic] system(s) required my full and direct attention, intervention and personal management. The aggregate critical care time was [32] minutes. This time is in addition to time spent performing reported procedures but includes the following: [x] Data Review and interpretation [x] Patient assessment and monitoring of vital signs [x] Documentation [x] Medication orders and management Plan of care is reviewed with the patient's nurse Brief History: 68-year-old female patient with history of COPD, arthritis s/p C-spine and lumbar spine surgery, Chronic pain syndrome who was found unconscious in her feces and vomitus, patients family was in [place] for a golf tournament. Patient was brought to the emergency room noted to be severely hypoxic and tachypneic, promptly intubated placed on ventilatory support and admitted to ICU patient was also noted to have possible aspiration pneumonia, completed treatment recommended by ID .currently monitoring of antibiotics . patient also had acute gastroenteritis acute kidney injury nonspecific elevation of troponins as well as septic shock evaluated by multiple specialties successfully weaned and extubated on 08/29/2018 however patient again went into acute respiratory f ailure requiring reintubation on 09/02/2018, Since then patient is vent dependent, plan for trach and PEG and placement. She is also being treated for acute b/l DVT diagnosed following admission while she was on DVT Px. s/p 4units of PRBC transfusion for anemia, no acute source of active bleeding so far. Hospitalist Physical General appearance: Present: no acute distress, well-nourished, obese, other (on vent with trach) - EENT Eyes: Present: PERRL, EOM intact - Neck Neck: Present: supple, trach on place - Respiratory Respiratory effort: normal Respiratory: bilateral: diminished, rhonchi, negative: rales, wheezing - Cardiovascular Rhythm: regular Heart Sounds: Present: S1 & S2 - Extremities Extremities: no ischemia, No edema - Abdominal General gastrointestinal: soft, non-tender, non-distended, normal bowel sounds - Integumentary Integumentary: Present: clear, warm - Psychiatric Psychiatric: cooperative, other (on vent) - Neurologic Neurologic: move extremities unpurposefull Subjective Date of service: 09/16/18 Principal diagnosis: anemia Interval history: Patient seen and examined medical records reviewed Patient remains intubated on ventilator support Alert and awake not in acute distress Vital signs noted, no acute issue overnight Patient's is at the bedside - updated Objective - Constitutional Vitals: Vital Signs - 12hr 09/16/18 09/16/18 09/16/18 03:46 04:00 04:16 Temperature 98.4 F Pulse Rate 74 70 71 Pulse Rate [ Anterior Bilateral Throughout] Pulse Rate [ 72 From Monitor] Respiratory 12 14 19 Rate Respiratory Rate [Anterior Bilateral Throughout] Blood Pressure 107/29 116/51 116/51 O2 Sat by Pulse 100 95 94 Oximetry O2 Sat by Pulse Oximetry [ Assessment] 09/16/18 09/16/18 09/16/18 04:30 04:46 05:00 Temperature Pulse Rate 70 75 78 Pulse Rate [ Anterior Bilateral Throughout] Pulse Rate [ From Monitor] Respiratory 11 L 14 22 Rate Respiratory Rate [Anterior Bilateral Throughout] Blood Pressure 120/49 120/49 120/57 O2 Sat by Pulse 95 95 93 Oximetry O2 Sat by Pulse Oximetry [ Assessment] 09/16/18 09/16/18 09/16/18 05:16 05:30 05:46 Temperature Pulse Rate 70 70 71 Pulse Rate [ Anterior Bilateral Throughout] Pulse Rate [ From Monitor] Respiratory 15 17 12 Rate Respiratory Rate [Anterior Bilateral Throughout] Blood Pressure 120/49 127/62 127/62 O2 Sat by Pulse 98 97 98 Oximetry O2 Sat by Pulse Oximetry [ Assessment] 09/16/18 09/16/18 09/16/18 06:00 06:16 06:30 Temperature Pulse Rate 71 70 72 Pulse Rate [ Anterior Bilateral Throughout] Pulse Rate [ From Monitor] Respiratory 17 16 19 Rate Respiratory Rate [Anterior Bilateral Throughout] Blood Pressure 121/62 121/62 116/53 O2 Sat by Pulse 97 98 96 Oximetry O2 Sat by Pulse Oximetry [ Assessment] 09/16/18 09/16/18 09/16/18 06:46 07:00 07:16 Temperature Pulse Rate 73 71 75 Pulse Rate [ Anterior Bilateral Throughout] Pulse Rate [ From Monitor] Respiratory 21 15 13 Rate Respiratory Rate [Anterior Bilateral Throughout] Blood Pressure 116/53 118/58 118/58 O2 Sat by Pulse 98 96 96 Oximetry O2 Sat by Pulse Oximetry [ Assessment] 09/16/18 09/16/18 09/16/18 07:30 07:46 08:00 Temperature Pulse Rate 71 76 78 Pulse Rate [ Anterior Bilateral Throughout] Pulse Rate [ 76 From Monitor] Respiratory 16 18 16 Rate Respiratory Rate [Anterior Bilateral Throughout] Blood Pressure 118/58 139/57 139/56 O2 Sat by Pulse 94 96 100 Oximetry O2 Sat by Pulse Oximetry [ Assessment] 09/16/18 09/16/18 09/16/18 08:16 08:30 08:46 Temperature Pulse Rate 77 78 76 Pulse Rate [ Anterior Bilateral Throughout] Pulse Rate [ From Monitor] Respiratory 17 18 21 Rate Respiratory Rate [Anterior Bilateral Throughout] Blood Pressure 139/56 139/56 O2 Sat by Pulse 96 96 97 Oximetry O2 Sat by Pulse Oximetry [ Assessment] 09/16/18 09/16/18 09/16/18 09:00 09:16 09:30 Temperature Pulse Rate 74 77 77 Pulse Rate [ Anterior Bilateral Throughout] Pulse Rate [ From Monitor] Respiratory 17 12 19 Rate Respiratory Rate [Anterior Bilateral Throughout] Blood Pressure 145/65 145/65 158/68 O2 Sat by Pulse 96 97 96 Oximetry O2 Sat by Pulse Oximetry [ Assessment] 09/16/18 09/16/18 09/16/18 09:46 09:59 10:00 Temperature Pulse Rate 75 76 78 Pulse Rate [ Anterior Bilateral Throughout] Pulse Rate [ From Monitor] Respiratory 21 28 H Rate Respiratory Rate [Anterior Bilateral Throughout] Blood Pressure 158/68 156/68 155/72 O2 Sat by Pulse 97 98 Oximetry O2 Sat by Pulse Oximetry [ Assessment] 09/16/18 09/16/18 09/16/18 10:05 10:16 10:18 Temperature Pulse Rate 73 Pulse Rate [ 80 82 Anterior Bilateral Throughout] Pulse Rate [ From Monitor] Respiratory 15 Rate Respiratory 16 16 Rate [Anterior Bilateral Throughout] Blood Pressure 158/68 O2 Sat by Pulse 99 Oximetry O2 Sat by Pulse Oximetry [ Assessment] 09/16/18 09/16/18 09/16/18 10:30 10:46 11:01 Temperature Pulse Rate 71 71 75 Pulse Rate [ Anterior Bilateral Throughout] Pulse Rate [ From Monitor] Respiratory 17 21 22 Rate Respiratory Rate [Anterior Bilateral Throughout] Blood Pressure 147/66 155/72 132/56 O2 Sat by Pulse 96 96 94 Oximetry O2 Sat by Pulse Oximetry [ Assessment] 09/16/18 09/16/18 09/16/18 11:16 11:30 11:46 Temperature Pulse Rate 73 75 80 Pulse Rate [ Anterior Bilateral Throughout] Pulse Rate [ From Monitor] Respiratory 27 H 15 22 Rate Respiratory Rate [Anterior Bilateral Throughout] Blood Pressure 147/66 147/68 147/68 O2 Sat by Pulse 93 93 91 Oximetry O2 Sat by Pulse Oximetry [ Assessment] 09/16/18 09/16/18 09/16/18 12:00 12:16 12:30 Temperature Pulse Rate 80 80 78 Pulse Rate [ Anterior Bilateral Throughout] Pulse Rate [ 81 From Monitor] Respiratory 10 L 14 20 Rate Respiratory Rate [Anterior Bilateral Throughout] Blood Pressure 147/68 147/68 163/76 O2 Sat by Pulse 92 92 90 Oximetry O2 Sat by Pulse Oximetry [ Assessment] 09/16/18 09/16/18 09/16/18 12:46 13:00 13:16 Temperature Pulse Rate 79 77 81 Pulse Rate [ Anterior Bilateral Throughout] Pulse Rate [ From Monitor] Respiratory 20 13 18 Rate Respiratory Rate [Anterior Bilateral Throughout] Blood Pressure 163/76 164/69 163/76 O2 Sat by Pulse 94 92 94 Oximetry O2 Sat by Pulse Oximetry [ Assessment] 09/16/18 09/16/18 09/16/18 13:30 13:42 13:45 Temperature Pulse Rate 77 77 Pulse Rate [ 88 Anterior Bilateral Throughout] Pulse Rate [ From Monitor] Respiratory 15 30 H Rate Respiratory 16 Rate [Anterior Bilateral Throughout] Blood Pressure 164/68 164/68 O2 Sat by Pulse 91 91 Oximetry O2 Sat by Pulse Oximetry [ Assessment] 09/16/18 09/16/18 09/16/18 13:46 13:50 14:00 Temperature Pulse Rate 78 74 Pulse Rate [ 77 Anterior Bilateral Throughout] Pulse Rate [ From Monitor] Respiratory 18 19 Rate Respiratory 15 Rate [Anterior Bilateral Throughout] Blood Pressure 164/69 162/71 O2 Sat by Pulse 93 97 Oximetry O2 Sat by Pulse Oximetry [ Assessment] 09/16/18 09/16/18 09/16/18 14:14 14:16 14:30 Temperature Pulse Rate 78 79 Pulse Rate [ Anterior Bilateral Throughout] Pulse Rate [ From Monitor] Respiratory 18 19 Rate Respiratory Rate [Anterior Bilateral Throughout] Blood Pressure 164/68 170/65 O2 Sat by Pulse 95 94 Oximetry O2 Sat by Pulse 93 Oximetry [ Assessment] 09/16/18 09/16/18 09/16/18 14:45 14:46 15:00 Temperature Pulse Rate 78 87 83 Pulse Rate [ Anterior Bilateral Throughout] Pulse Rate [ From Monitor] Respiratory 16 21 Rate Respiratory Rate [Anterior Bilateral Throughout] Blood Pressure 169/68 170/65 169/68 O2 Sat by Pulse 93 92 Oximetry O2 Sat by Pulse Oximetry [ Assessment] - Labs CBC & Chem 7: 09/16/18 11:30 09/16/18 11:30 Labs: Abnormal lab results 09/16/18 09/16/18 09/16/18 Range/Units 01:16 04:25 11:30 RBC 2.77 L (3.65-5.03) M/mm3 Hgb 8.5 L (10.1-14.3) gm/dl Hct 25.6 L (30.3-42.9) % RDW 17.9 H (13.2-15.2) % POC ABG pH 7.489 H (7.35-7.45) POC ABG pCO2 47.6 H (35-45) POC ABG pO2 62 L (80-105) Potassium (3.6-5.0) mmol/L Chloride (98-107) mmol/L Carbon Dioxide (22-30) mmol/L Glucose (65-100) mg/dL POC Glucose 108 H (70-105) 09/16/18 Range/Units 11:30 RBC (3.65-5.03) M/mm3 Hgb (10.1-14.3) gm/dl Hct (30.3-42.9) % RDW (13.2-15.2) % POC ABG pH (7.35-7.45) POC ABG pCO2 (35-45) POC ABG pO2 (80-105) Potassium 3.2 L (3.6-5.0) mmol/L Chloride 96.6 L (98-107) mmol/L Carbon Dioxide 34 H (22-30) mmol/L Glucose 128 H (65-100) mg/dL POC Glucose (70-105)
[2018-09-16] MEDS ORDERED: K-DUR PO ONE ×2 (16:30→22:30)
[2018-09-17] MEDS: DILAUDID PO SCH ×4 (00:53→18:55)
[2018-09-17] MEDS: ZOSYN/NS 4.5GM/100ML 4.5 GM/100 ML VIAL IV SCH ×4 (00:56→19:10)
[2018-09-17] MEDS: HumaLOG SUB-Q SCH ×4 (00:57→19:59)
[2018-09-17] MEDS: DILAUDID IV PRN (01:39)
[2018-09-17] MEDS: DUONEB *Not for PRN Use IH SCH ×4 (02:22→19:05)
[2018-09-17] MEDS: APRESOLINE PO SCH ×3 (06:59→21:50)
[2018-09-17] MEDS: BROVANA NEBU IH SCH ×2 (07:35→19:05)
[2018-09-17] MEDS: PULMICORT IH SCH ×2 (07:35→19:05)
[2018-09-17] MEDS ORDERED: SIMPLE SYRUP FEEDTUBE PRN ×2 (09:06)
[2018-09-17] MEDS ORDERED: PANCREAZE DR 10,500 UNIT FEEDTUBE PRN (09:06)
[2018-09-17] MEDS ORDERED: SODIUM BICARBONATE FEEDTUBE PRN (09:06)
--- NOTE | 2018-09-17 09:51 | Progress Note ---
Assessment and Plan Acute hypoxic-hypercapnic respiratory failure on MVS Acute COPD exacerbation DVT NSTEMI Acute encephalopathy (toxic-metabolic) Thrombocytopenia Hypokalemia Acute kidney injury h/o Chronic Narcotic Dependence Aspiration pneumonia/CAP Hypokalemia GNR in tracheal aspirate Hypernatremia - get CXR to re-evaluate pulmonary edema - consider increasing diuresis in short term - continue prn analgesia - Continue to Wean supplemental oxygen to keep O2 sats > 88-90% - anti-infective's per by ID team - continue accuchecks q6h and target glycemic control for BG 140 - 180 mg/dl acutely - azotemia per nephrology team - continue seroquel and target sedatives for RASS 0 to -1 - CD4 count WNL - HIT assay negative but again developed thrombocytopenia with re-challenge so on Arixtra treatment dose - nephrology input appreciated - cardiology consulted for CHF - continue brovana & pulmicort re: COPD - continue lung protective strategies - Daily ABGs/CXR for now - VAP bundle addressed - continue to avoid benzodiazepines, use high dose fentanyl for agitation and analgesia - Sedation target for RASS 0 to -1 - Stress ulcer prophylaxis - VTE prophylaxis - enteral Nutrition as tolerated - VAP bundle addressed - Continue bronchodilators with pulmonary hygiene per RT - Maintenance of sleep -wake cycle - Mobility protocol for pressure ulcer prophylaxis as tolerated by hemodynamics - Influenza and pneumonia vaccination per protocol ..care plan discussed at length with at the bedside ... re-evaluate in am & prn PROGNOSIS :FAIR CONDITION: CRITICAL CODE STATUS: FULL CODE The high probability of a clinically significant, sudden or life-threatening deterioration of the [respiratory, neurology, renal] system(s) required my full and direct attention, intervention and personal management. The aggregate critical care time was [35] minutes without overlap. Time includes spent on; [x] Data Review and interpretation [x] Patient assessment and monitoring of vital signs [x] Documentation [x] Medication orders and management Subjective Date of service: 09/17/18 Principal diagnosis: Acute hypoxemic hypercapnic Resp failure; AE-COPD; Acute kidney injury Interval history: Patient is seen today for: Acute hypoxemic - hypercapnic respiratory failure on MVS; Acute COPD exacerbation; Acute encephalopathy (toxic-metabolic); Hypokalemia; Acute kidney injury Seen and examined at bedside; 24hour events reviewed; nursing and respiratory care staff consulted; no adverse overnight events reported to me; remains on M VS; tolerated PSV for about 3 hours earlier; No N/V/F/C; still with AMS Objective Vital Signs - 12hr 09/16/18 09/16/18 09/16/18 22:00 22:16 22:30 Temperature Pulse Rate 91 H 96 H 86 Pulse Rate [ Anterior Bilateral Throughout] Pulse Rate [ Anterior Bilateral] Pulse Rate [ From Monitor] Respiratory 19 22 18 Rate Respiratory Rate [Anterior Bilateral Throughout] Respiratory Rate [Anterior Bilateral] Blood Pressure 169/73 169/73 155/71 O2 Sat by Pulse 92 95 92 Oximetry O2 Sat by Pulse Oximetry [ Assessment] 09/16/18 09/16/18 09/16/18 22:46 23:00 23:16 Temperature Pulse Rate 85 88 91 H Pulse Rate [ Anterior Bilateral Throughout] Pulse Rate [ Anterior Bilateral] Pulse Rate [ From Monitor] Respiratory 17 25 H 23 Rate Respiratory Rate [Anterior Bilateral Throughout] Respiratory Rate [Anterior Bilateral] Blood Pressure 155/71 160/76 160/76 O2 Sat by Pulse 94 91 95 Oximetry O2 Sat by Pulse Oximetry [ Assessment] 09/16/18 09/16/18 09/17/18 23:30 23:46 00:00 Temperature 99.7 F H Pulse Rate 92 H 91 H 86 Pulse Rate [ Anterior Bilateral Throughout] Pulse Rate [ Anterior Bilateral] Pulse Rate [ 110 H From Monitor] Respiratory 23 16 24 Rate Respiratory Rate [Anterior Bilateral Throughout] Respiratory Rate [Anterior Bilateral] Blood Pressure 166/77 166/77 166/77 O2 Sat by Pulse 89 94 95 Oximetry O2 Sat by Pulse Oximetry [ Assessment] 09/17/18 09/17/18 09/17/18 00:15 00:16 00:30 Temperature Pulse Rate 87 90 87 Pulse Rate [ Anterior Bilateral Throughout] Pulse Rate [ Anterior Bilateral] Pulse Rate [ From Monitor] Respiratory 18 27 H Rate Respiratory Rate [Anterior Bilateral Throughout] Respiratory Rate [Anterior Bilateral] Blood Pressure 174/81 174/81 166/81 O2 Sat by Pulse 94 94 92 Oximetry O2 Sat by Pulse 93 Oximetry [ Assessment] 09/17/18 09/17/18 09/17/18 00:45 01:00 01:15 Temperature Pulse Rate 87 93 H 87 Pulse Rate [ Anterior Bilateral Throughout] Pulse Rate [ Anterior Bilateral] Pulse Rate [ From Monitor] Respiratory 21 17 24 Rate Respiratory Rate [Anterior Bilateral Throughout] Respiratory Rate [Anterior Bilateral] Blood Pressure 166/81 167/82 167/82 O2 Sat by Pulse 95 94 94 Oximetry O2 Sat by Pulse Oximetry [ Assessment] 09/17/18 09/17/18 09/17/18 01:30 01:46 02:00 Temperature Pulse Rate 84 81 75 Pulse Rate [ Anterior Bilateral Throughout] Pulse Rate [ Anterior Bilateral] Pulse Rate [ 86 From Monitor] Respiratory 19 17 20 Rate Respiratory Rate [Anterior Bilateral Throughout] Respiratory Rate [Anterior Bilateral] Blood Pressure 162/72 162/72 152/66 O2 Sat by Pulse 90 94 94 Oximetry O2 Sat by Pulse Oximetry [ Assessment] 09/17/18 09/17/18 09/17/18 02:16 02:22 02:30 Temperature Pulse Rate 78 72 Pulse Rate [ 73 81 Anterior Bilateral Throughout] Pulse Rate [ Anterior Bilateral] Pulse Rate [ From Monitor] Respiratory 21 15 Rate Respiratory 23 24 Rate [Anterior Bilateral Throughout] Respiratory Rate [Anterior Bilateral] Blood Pressure 152/66 155/66 O2 Sat by Pulse 97 97 Oximetry O2 Sat by Pulse Oximetry [ Assessment] 09/17/18 09/17/18 09/17/18 02:46 03:00 03:16 Temperature Pulse Rate 78 82 81 Pulse Rate [ Anterior Bilateral Throughout] Pulse Rate [ Anterior Bilateral] Pulse Rate [ From Monitor] Respiratory 24 17 22 Rate Respiratory Rate [Anterior Bilateral Throughout] Respiratory Rate [Anterior Bilateral] Blood Pressure 155/66 151/68 151/68 O2 Sat by Pulse 97 93 95 Oximetry O2 Sat by Pulse Oximetry [ Assessment] 09/17/18 09/17/18 09/17/18 03:30 03:46 04:00 Temperature 99.6 F Pulse Rate 82 79 76 Pulse Rate [ Anterior Bilateral Throughout] Pulse Rate [ Anterior Bilateral] Pulse Rate [ 90 From Monitor] Respiratory 23 19 19 Rate Respiratory Rate [Anterior Bilateral Throughout] Respiratory Rate [Anterior Bilateral] Blood Pressure 152/74 152/74 150/68 O2 Sat by Pulse 93 95 95 Oximetry O2 Sat by Pulse Oximetry [ Assessment] 09/17/18 09/17/18 09/17/18 04:16 04:22 04:30 Temperature Pulse Rate 81 78 77 Pulse Rate [ Anterior Bilateral Throughout] Pulse Rate [ Anterior Bilateral] Pulse Rate [ From Monitor] Respiratory 16 19 Rate Respiratory Rate [Anterior Bilateral Throughout] Respiratory Rate [Anterior Bilateral] Blood Pressure 150/68 150/68 156/76 O2 Sat by Pulse 91 94 93 Oximetry O2 Sat by Pulse Oximetry [ Assessment] 09/17/18 09/17/18 09/17/18 04:46 05:00 05:16 Temperature Pulse Rate 76 77 76 Pulse Rate [ Anterior Bilateral Throughout] Pulse Rate [ Anterior Bilateral] Pulse Rate [ From Monitor] Respiratory 19 26 H 20 Rate Respiratory Rate [Anterior Bilateral Throughout] Respiratory Rate [Anterior Bilateral] Blood Pressure 156/76 152/73 152/73 O2 Sat by Pulse 95 92 94 Oximetry O2 Sat by Pulse Oximetry [ Assessment] 09/17/18 09/17/18 09/17/18 05:30 05:46 06:00 Temperature Pulse Rate 75 67 81 Pulse Rate [ Anterior Bilateral Throughout] Pulse Rate [ Anterior Bilateral] Pulse Rate [ From Monitor] Respiratory 22 19 26 H Rate Respiratory Rate [Anterior Bilateral Throughout] Respiratory Rate [Anterior Bilateral] Blood Pressure 153/69 153/69 151/74 O2 Sat by Pulse 92 95 94 Oximetry O2 Sat by Pulse Oximetry [ Assessment] 09/17/18 09/17/18 09/17/18 06:16 06:30 06:46 Temperature Pulse Rate 75 76 75 Pulse Rate [ Anterior Bilateral Throughout] Pulse Rate [ Anterior Bilateral] Pulse Rate [ From Monitor] Respiratory 24 22 16 Rate Respiratory Rate [Anterior Bilateral Throughout] Respiratory Rate [Anterior Bilateral] Blood Pressure 151/74 151/74 151/74 O2 Sat by Pulse 95 92 95 Oximetry O2 Sat by Pulse Oximetry [ Assessment] 09/17/18 09/17/18 09/17/18 06:59 07:00 07:27 Temperature Pulse Rate 75 75 81 Pulse Rate [ Anterior Bilateral Throughout] Pulse Rate [ Anterior Bilateral] Pulse Rate [ From Monitor] Respiratory 13 27 H Rate Respiratory Rate [Anterior Bilateral Throughout] Respiratory Rate [Anterior Bilateral] Blood Pressure 155/71 148/59 148/59 O2 Sat by Pulse 94 Oximetry O2 Sat by Pulse Oximetry [ Assessment] 09/17/18 09/17/18 09/17/18 07:32 07:36 07:44 Temperature Pulse Rate Pulse Rate [ Anterior Bilateral Throughout] Pulse Rate [ 73 75 Anterior Bilateral] Pulse Rate [ From Monitor] Respiratory Rate Respiratory Rate [Anterior Bilateral Throughout] Respiratory 27 H 27 H Rate [Anterior Bilateral] Blood Pressure O2 Sat by Pulse Oximetry O2 Sat by Pulse 94 Oximetry [ Assessment] 09/17/18 08:00 Temperature 99.1 F Pulse Rate Pulse Rate [ Anterior Bilateral Throughout] Pulse Rate [ Anterior Bilateral] Pulse Rate [ From Monitor] Respiratory Rate Respiratory Rate [Anterior Bilateral Throughout] Respiratory Rate [Anterior Bilateral] Blood Pressure O2 Sat by Pulse Oximetry O2 Sat by Pulse Oximetry [ Assessment] Constitutional: appears uncomfortable, other (elderly looking CF, normocephalic and atraumatic) Eyes: non-icteric ENT: oropharynx moist, other (s/p tracheostomy) Neck: supple, no lymphadenopathy, no JVD, other (no thyromegaly) Effort: mildly labored Ascultation: Bilateral: diminished breath sounds, rales Percussion: Bilateral: not dull Cardiovascular: regular rate and rhythm Gastrointestinal: normoactive bowel sounds, soft, non-tender, non-distended Integumentary: normal Extremities: no cyanosis, no ischemia or petechiae, edema (Left lower extremity) Neurologic: non-focal exam (grossly), pupils equal and round, CN II-XII normal, motor strength normal and Psychiatric: other (unable to assess) CBC and BMP: 09/18/18 04:20 09/18/18 04:20 ABG, PT/INR, D-dimer: ABG POC ABG pH 7.576 (7.35-7.45) H 09/17/18 04:22 POC ABG pCO2 37.1 (35-45) 09/17/18 04:22 POC ABG pO2 58 (80-105) L 09/17/18 04:22 POC ABG HCO3 34.4 (22-26 mml/L) 09/17/18 04:22 POC ABG Total CO2 36 (23-27mmol/L) 09/17/18 04:22 POC ABG O2 Sat 93 09/17/18 04:22 PT/INR, D-dimer PT 14.2 Sec. (12.2-14.9) 09/14/18 04:55 INR 1.04 (0.87-1.13) 09/14/18 04:55 D-Dimer 2768.33 ng/mlDDU (0-234) H 08/15/18 18:31 Abnormal lab findings: Abnormal Labs 08/15/18 08/15/18 08/15/18 17:52 17:52 17:52 WBC 12.7 H RBC 3.25 L Hgb Hct RDW Plt Count Lymph % (Auto) [place] % (Auto) Lymph # [place] # Seg Neutrophils % Seg Neuts % (Manual) Lymphocytes % (Manual) 6.0 L Nucleated RBC % Seg Neutrophils # Seg Neutrophils # Man Lymphocytes # (Manual) 0.8 L D-Dimer POC ABG pH POC ABG pCO2 POC ABG pO2 VBG pH Sodium Potassium 3.4 L Chloride 94.6 L Carbon Dioxide 17 L BUN 67 H Creatinine 3.5 H Glucose 131 H POC Glucose Hemoglobin A1c Lactic Acid 5.20 H* Calcium 7.6 L Phosphorus Magnesium Iron TIBC AST 887 H ALT 316 H Troponin T C-Reactive Protein Total Protein Albumin 3.1 L Triglycerides LDL Cholesterol Direct HDL Cholesterol Urine WBC (Auto) Vancomycin Trough Salicylates Acetaminophen % CD3 Cells % CD19 Cells Absolute CD19 Count Miscellaneous Test Crossmatch 08/15/18 08/15/18 08/15/18 18:11 18:19 18:31 WBC RBC Hgb Hct RDW Plt Count Lymph % (Auto) [place] % (Auto) Lymph # [place] # Seg Neutrophils % Seg Neuts % (Manual) Lymphocytes % (Manual) Nucleated RBC % Seg Neutrophils # Seg Neutrophils # Man Lymphocytes # (Manual) D-Dimer 2768.33 H POC ABG pH 7.173 L POC ABG pCO2 47.8 H POC ABG pO2 177 H VBG pH 7.187 L* Sodium Potassium Chloride Carbon Dioxide BUN Creatinine Glucose POC Glucose Hemoglobin A1c Lactic Acid Calcium Phosphorus Magnesium Iron TIBC AST ALT Troponin T C-Reactive Protein Total Protein Albumin Triglycerides LDL Cholesterol Direct HDL Cholesterol Urine WBC (Auto) Vancomycin Trough Salicylates Acetaminophen % CD3 Cells % CD19 Cells Absolute CD19 Count Miscellaneous Test Crossmatch 08/15/18 08/15/18 08/15/18 18:31 19:14 19:14 WBC RBC Hgb Hct RDW Plt Count Lymph % (Auto) [place] % (Auto) Lymph # [place] # Seg Neutrophils % Seg Neuts % (Manual) Lymphocytes % (Manual) Nucleated RBC % Seg Neutrophils # Seg Neutrophils # Man Lymphocytes # (Manual) D-Dimer POC ABG pH POC ABG pCO2 POC ABG pO2 VBG pH Sodium Potassium Chloride Carbon Dioxide BUN Creatinine Glucose POC Glucose Hemoglobin A1c Lactic Acid 2.70 H* Calcium Phosphorus Magnesium Iron TIBC AST ALT Troponin T 0.454 H* C-Reactive Protein Total Protein Albumin Triglycerides 356 H LDL Cholesterol Direct 4 L HDL Cholesterol 10 L Urine WBC (Auto) Vancomycin Trough Salicylates < 0.3 L Acetaminophen % CD3 Cells % CD19 Cells Absolute CD19 Count Miscellaneous Test Crossmatch 08/15/18 08/15/18 08/15/18 19:14 19:15 23:09 WBC RBC Hgb Hct RDW Plt Count Lymph % (Auto) [place] % (Auto) Lymph # [place] # Seg Neutrophils % Seg Neuts % (Manual) Lymphocytes % (Manual) Nucleated RBC % Seg Neutrophils # Seg Neutrophils # Man Lymphocytes # (Manual) D-Dimer POC ABG pH POC ABG pCO2 POC ABG pO2 VBG pH Sodium Potassium Chloride Carbon Dioxide BUN Creatinine Glucose POC Glucose Hemoglobin A1c Lactic Acid 3.20 H* Calcium Phosphorus Magnesium Iron TIBC AST ALT Troponin T C-Reactive Protein Total Protein Albumin Triglycerides LDL Cholesterol Direct HDL Cholesterol Urine WBC (Auto) 17.0 H Vancomycin Trough Salicylates Acetaminophen < 5.0 L % CD3 Cells % CD19 Cells Absolute CD19 Count Miscellaneous Test Crossmatch 08/15/18 08/16/18 08/16/18 23:09 01:41 05:38 WBC RBC 3.07 L Hgb 9.8 L Hct 28.7 L RDW Plt Count Lymph % (Auto) [place] % (Auto) Lymph # [place] # Seg Neutrophils % Seg Neuts % (Manual) 84.0 H Lymphocytes % (Manual) 6.0 L Nucleated RBC % 4.0 H Seg Neutrophils # Seg Neutrophils # Man Lymphocytes # (Manual) 0.5 L D-Dimer POC ABG pH 7.323 L POC ABG pCO2 34.7 L POC ABG pO2 78 L VBG pH Sodium Potassium Chloride Carbon Dioxide BUN Creatinine Glucose POC Glucose Hemoglobin A1c 6.4 H Lactic Acid Calcium Phosphorus Magnesium Iron TIBC AST ALT Troponin T C-Reactive Protein Total Protein Albumin Triglycerides LDL Cholesterol Direct HDL Cholesterol Urine WBC (Auto) Vancomycin Trough Salicylates Acetaminophen % CD3 Cells % CD19 Cells Absolute CD19 Count Miscellaneous Test Crossmatch 08/16/18 08/16/18 08/17/18 05:38 22:43 03:42 WBC RBC Hgb Hct RDW Plt Count Lymph % (Auto) [place] % (Auto) Lymph # [place] # Seg Neutrophils % Seg Neuts % (Manual) Lymphocytes % (Manual) Nucleated RBC % Seg Neutrophils # Seg Neutrophils # Man Lymphocytes # (Manual) D-Dimer POC ABG pH POC ABG pCO2 POC ABG pO2 VBG pH Sodium Potassium 2.9 L* 3.1 L 2.9 L* Chloride 108.8 H 111.9 H Carbon Dioxide 17 L 19 L 21 L BUN 62 H 40 H 33 H Creatinine 2.0 H Glucose 139 H 145 H POC Glucose Hemoglobin A1c Lactic Acid Calcium 7.8 L 8.3 L Phosphorus 1.50 L Magnesium Iron TIBC AST 619 H ALT 353 H Troponin T C-Reactive Protein Total Protein 6.1 L Albumin 2.8 L Triglycerides LDL Cholesterol Direct HDL Cholesterol Urine WBC (Auto) Vancomycin Trough Salicylates Acetaminophen % CD3 Cells % CD19 Cells Absolute CD19 Count Miscellaneous Test Crossmatch 08/17/18 08/17/18 08/18/18 11:02 16:42 03:28 WBC RBC Hgb Hct RDW Plt Count Lymph % (Auto) [place] % (Auto) Lymph # [place] # Seg Neutrophils % Seg Neuts % (Manual) Lymphocytes % (Manual) Nucleated RBC % Seg Neutrophils # Seg Neutrophils # Man Lymphocytes # (Manual) D-Dimer POC ABG pH 7.483 H 7.499 H POC ABG pCO2 POC ABG pO2 VBG pH Sodium 147 H Potassium 3.2 L Chloride 115.8 H Carbon Dioxide BUN 23 H Creatinine Glucose 121 H POC Glucose Hemoglobin A1c Lactic Acid Calcium 8.1 L Phosphorus 2.30 L D Magnesium Iron TIBC AST ALT Troponin T C-Reactive Protein Total Protein Albumin Triglycerides LDL Cholesterol Direct HDL Cholesterol Urine WBC (Auto) Vancomycin Trough Salicylates Acetaminophen % CD3 Cells % CD19 Cells Absolute CD19 Count Miscellaneous Test Crossmatch 08/18/18 08/18/18 08/18/18 04:10 13:39 13:39 WBC RBC Hgb Hct RDW Plt Count Lymph % (Auto) [place] % (Auto) Lymph # [place] # Seg Neutrophils % Seg Neuts % (Manual) Lymphocytes % (Manual) Nucleated RBC % Seg Neutrophils # Seg Neutrophils # Man Lymphocytes # (Manual) D-Dimer POC ABG pH POC ABG pCO2 POC ABG pO2 VBG pH Sodium 147 H Potassium 3.3 L Chloride 111.9 H Carbon Dioxide BUN 21 H Creatinine Glucose 113 H POC Glucose Hemoglobin A1c Lactic Acid Calcium Phosphorus 1.50 L D Magnesium Iron TIBC AST ALT Troponin T 0.317 H* D C-Reactive Protein 10.70 H Total Protein Albumin Triglycerides LDL Cholesterol Direct HDL Cholesterol Urine WBC (Auto) Vancomycin Trough Salicylates Acetaminophen % CD3 Cells % CD19 Cells Absolute CD19 Count Miscellaneous Test Crossmatch 08/18/18 08/19/18 08/19/18 16:51 03:47 04:15 WBC RBC Hgb Hct RDW Plt Count Lymph % (Auto) [place] % (Auto) Lymph # [place] # Seg Neutrophils % Seg Neuts % (Manual) Lymphocytes % (Manual) Nucleated RBC % Seg Neutrophils # Seg Neutrophils # Man Lymphocytes # (Manual) D-Dimer POC ABG pH 7.454 H 7.482 H POC ABG pCO2 POC ABG pO2 65 L VBG pH Sodium 154 H Potassium 3.3 L Chloride 115.1 H Carbon Dioxide BUN 19 H Creatinine Glucose 117 H POC Glucose Hemoglobin A1c Lactic Acid Calcium 7.8 L Phosphorus Magnesium Iron TIBC AST ALT Troponin T C-Reactive Protein Total Protein Albumin Triglycerides LDL Cholesterol Direct HDL Cholesterol Urine WBC (Auto) Vancomycin Trough Salicylates Acetaminophen % CD3 Cells % CD19 Cells Absolute CD19 Count Miscellaneous Test Crossmatch 08/19/18 08/19/18 08/20/18 14:32 16:18 03:51 WBC RBC Hgb Hct RDW Plt Count Lymph % (Auto) [place] % (Auto) Lymph # [place] # Seg Neutrophils % Seg Neuts % (Manual) Lymphocytes % (Manual) Nucleated RBC % Seg Neutrophils # Seg Neutrophils # Man Lymphocytes # (Manual) D-Dimer POC ABG pH 7.483 H POC ABG pCO2 33.4 L POC ABG pO2 51 L 74 L VBG pH Sodium Potassium Chloride Carbon Dioxide BUN Creatinine Glucose POC Glucose Hemoglobin A1c Lactic Acid Calcium Phosphorus Magnesium Iron TIBC AST ALT Troponin T C-Reactive Protein Total Protein Albumin Triglycerides LDL Cholesterol Direct HDL Cholesterol Urine WBC (Auto) Vancomycin Trough Salicylates Acetaminophen % CD3 Cells 44 L % CD19 Cells 41 H Absolute CD19 Count 1290 H Miscellaneous Test Crossmatch 08/20/18 08/21/18 08/21/18 05:25 03:54 05:45 WBC 24.1 H RBC 2.83 L Hgb 8.8 L Hct 26.7 L RDW 15.7 H Plt Count 127 L Lymph % (Auto) [place] % (Auto) Lymph # [place] # Seg Neutrophils % Seg Neuts % (Manual) 94.0 H Lymphocytes % (Manual) 4.0 L Nucleated RBC % 1.0 H Seg Neutrophils # Seg Neutrophils # Man 22.7 H Lymphocytes # (Manual) 1.0 L D-Dimer POC ABG pH POC ABG pCO2 31.9 L POC ABG pO2 66 L VBG pH Sodium 146 H D Potassium Chloride 111.2 H Carbon Dioxide BUN 24 H Creatinine Glucose 141 H POC Glucose Hemoglobin A1c Lactic Acid Calcium 8.1 L Phosphorus Magnesium Iron TIBC AST 65 H ALT 104 H Troponin T C-Reactive Protein Total Protein 6.2 L Albumin 2.6 L Triglycerides LDL Cholesterol Direct HDL Cholesterol Urine WBC (Auto) Vancomycin Trough Salicylates Acetaminophen % CD3 Cells % CD19 Cells Absolute CD19 Count Miscellaneous Test Crossmatch 08/21/18 08/22/18 08/22/18 05:45 06:20 06:45 WBC RBC Hgb Hct RDW Plt Count Lymph % (Auto) [place] % (Auto) Lymph # [place] # Seg Neutrophils % Seg Neuts % (Manual) Lymphocytes % (Manual) Nucleated RBC % Seg Neutrophils # Seg Neutrophils # Man Lymphocytes # (Manual) D-Dimer POC ABG pH POC ABG pCO2 32.9 L POC ABG pO2 VBG pH Sodium Potassium 3.5 L Chloride 109.4 H 112.4 H Carbon Dioxide 21 L 20 L BUN 50 H 61 H Creatinine 2.0 H D 1.9 H Glucose 144 H 154 H POC Glucose Hemoglobin A1c Lactic Acid Calcium 7.6 L 7.8 L Phosphorus Magnesium Iron TIBC AST ALT Troponin T C-Reactive Protein Total Protein 5.3 L Albumin 2.1 L Triglycerides LDL Cholesterol Direct HDL Cholesterol Urine WBC (Auto) Vancomycin Trough Salicylates Acetaminophen % CD3 Cells % CD19 Cells Absolute CD19 Count Miscellaneous Test Crossmatch 08/22/18 08/22/18 08/22/18 06:45 15:29 18:40 WBC RBC Hgb Hct RDW Plt Count Lymph % (Auto) [place] % (Auto) Lymph # [place] # Seg Neutrophils % Seg Neuts % (Manual) Lymphocytes % (Manual) Nucleated RBC % Seg Neutrophils # Seg Neutrophils # Man Lymphocytes # (Manual) D-Dimer POC ABG pH POC ABG pCO2 POC ABG pO2 VBG pH Sodium Potassium Chloride Carbon Dioxide BUN Creatinine Glucose POC Glucose 169 H Hemoglobin A1c Lactic Acid Calcium Phosphorus Magnesium Iron TIBC AST ALT Troponin T C-Reactive Protein 4.70 H Total Protein Albumin Triglycerides 197 H LDL Cholesterol Direct HDL Cholesterol Urine WBC (Auto) Vancomycin Trough Salicylates Acetaminophen % CD3 Cells % CD19 Cells Absolute CD19 Count Miscellaneous Test Crossmatch 08/23/18 08/23/18 08/23/18 03:59 21:19 Unknown WBC 12.1 H RBC 2.29 L Hgb 7.1 L Hct 21.7 L RDW 15.7 H Plt Count 106 L Lymph % (Auto) [place] % (Auto) Lymph # [place] # Seg Neutrophils % Seg Neuts % (Manual) 92.0 H Lymphocytes % (Manual) 4.0 L Nucleated RBC % Seg Neutrophils # Seg Neutrophils # Man 11.1 H Lymphocytes # (Manual) 0.5 L D-Dimer POC ABG pH 7.306 L POC ABG pCO2 31.3 L POC ABG pO2 119 H 75 L VBG pH Sodium Potassium Chloride Carbon Dioxide BUN Creatinine Glucose POC Glucose Hemoglobin A1c Lactic Acid Calcium Phosphorus Magnesium Iron TIBC AST ALT Troponin T C-Reactive Protein Total Protein Albumin Triglycerides LDL Cholesterol Direct HDL Cholesterol Urine WBC (Auto) Vancomycin Trough Salicylates Acetaminophen % CD3 Cells % CD19 Cells Absolute CD19 Count Miscellaneous Test Crossmatch 08/23/18 08/24/18 08/24/18 Unknown 04:18 08:30 WBC 12.8 H RBC 2.24 L Hgb 7.0 L Hct 21.1 L RDW Plt Count Lymph % (Auto) [place] % (Auto) Lymph # [place] # Seg Neutrophils % Seg Neuts % (Manual) 93.0 H Lymphocytes % (Manual) 6.0 L Nucleated RBC % Seg Neutrophils # Seg Neutrophils # Man 11.9 H Lymphocytes # (Manual) 0.8 L D-Dimer POC ABG pH POC ABG pCO2 POC ABG pO2 78 L VBG pH Sodium Potassium Chloride 115.7 H Carbon Dioxide 21 L BUN 64 H Creatinine 2.0 H Glucose 149 H POC Glucose Hemoglobin A1c Lactic Acid Calcium 7.5 L Phosphorus Magnesium Iron TIBC AST ALT Troponin T C-Reactive Protein Total Protein 4.8 L Albumin 2.0 L Triglycerides LDL Cholesterol Direct HDL Cholesterol Urine WBC (Auto) Vancomycin Trough Salicylates Acetaminophen % CD3 Cells % CD19 Cells Absolute CD19 Count Miscellaneous Test Crossmatch 08/24/18 08/24/18 08/24/18 08:30 17:44 18:28 WBC RBC Hgb Hct RDW Plt Count Lymph % (Auto) [place] % (Auto) Lymph # [place] # Seg Neutrophils % Seg Neuts % (Manual) Lymphocytes % (Manual) Nucleated RBC % Seg Neutrophils # Seg Neutrophils # Man Lymphocytes # (Manual) D-Dimer POC ABG pH 7.474 H POC ABG pCO2 POC ABG pO2 61 L VBG pH Sodium Potassium Chloride 108.3 H Carbon Dioxide 20 L BUN 65 H Creatinine 2.0 H Glucose 167 H POC Glucose 164 H Hemoglobin A1c Lactic Acid Calcium 7.7 L Phosphorus Magnesium Iron TIBC AST ALT Troponin T C-Reactive Protein Total Protein 5.3 L Albumin 2.2 L Triglycerides LDL Cholesterol Direct HDL Cholesterol Urine WBC (Auto) Vancomycin Trough Salicylates Acetaminophen % CD3 Cells % CD19 Cells Absolute CD19 Count Miscellaneous Test Crossmatch 08/25/18 08/25/18 08/25/18 03:35 05:20 05:20 WBC RBC Hgb 6.7 L Hct 21.0 L RDW Plt Count Lymph % (Auto) [place] % (Auto) Lymph # [place] # Seg Neutrophils % Seg Neuts % (Manual) Lymphocytes % (Manual) Nucleated RBC % Seg Neutrophils # Seg Neutrophils # Man Lymphocytes # (Manual) D-Dimer POC ABG pH POC ABG pCO2 POC ABG pO2 79 L VBG pH Sodium Potassium Chloride Carbon Dioxide 21 L BUN 71 H Creatinine 3.1 H D Glucose 171 H POC Glucose Hemoglobin A1c Lactic Acid Calcium 7.5 L Phosphorus Magnesium Iron TIBC AST ALT Troponin T C-Reactive Protein Total Protein Albumin Triglycerides LDL Cholesterol Direct HDL Cholesterol Urine WBC (Auto) Vancomycin Trough Salicylates Acetaminophen % CD3 Cells % CD19 Cells Absolute CD19 Count Miscellaneous Test Crossmatch 08/25/18 08/25/18 08/25/18 05:20 08:52 12:42 WBC RBC Hgb Hct RDW Plt Count Lymph % (Auto) [place] % (Auto) Lymph # [place] # Seg Neutrophils % Seg Neuts % (Manual) Lymphocytes % (Manual) Nucleated RBC % Seg Neutrophils # Seg Neutrophils # Man Lymphocytes # (Manual) D-Dimer POC ABG pH POC ABG pCO2 POC ABG pO2 VBG pH Sodium Potassium Chloride Carbon Dioxide BUN Creatinine Glucose POC Glucose 166 H Hemoglobin A1c Lactic Acid Calcium Phosphorus Magnesium Iron TIBC AST ALT Troponin T C-Reactive Protein 5.00 H Total Protein Albumin Triglycerides LDL Cholesterol Direct HDL Cholesterol Urine WBC (Auto) Vancomycin Trough Salicylates Acetaminophen % CD3 Cells % CD19 Cells Absolute CD19 Count Miscellaneous Test Crossmatch See Detail 08/25/18 08/26/18 08/26/18 18:05 00:13 04:53 WBC RBC Hgb Hct RDW Plt Count Lymph % (Auto) [place] % (Auto) Lymph # [place] # Seg Neutrophils % Seg Neuts % (Manual) Lymphocytes % (Manual) Nucleated RBC % Seg Neutrophils # Seg Neutrophils # Man Lymphocytes # (Manual) D-Dimer POC ABG pH POC ABG pCO2 30.9 L POC ABG pO2 70 L VBG pH Sodium Potassium Chloride Carbon Dioxide BUN Creatinine Glucose POC Glucose 121 H 164 H Hemoglobin A1c Lactic Acid Calcium Phosphorus Magnesium Iron TIBC AST ALT Troponin T C-Reactive Protein Total Protein Albumin Triglycerides LDL Cholesterol Direct HDL Cholesterol Urine WBC (Auto) Vancomycin Trough Salicylates Acetaminophen % CD3 Cells % CD19 Cells Absolute CD19 Count Miscellaneous Test Crossmatch 08/26/18 08/26/18 08/26/18 05:42 06:00 06:00 WBC RBC 2.62 L Hgb 7.7 L Hct 23.0 L RDW 22.0 H Plt Count Lymph % (Auto) 6.3 L [place] % (Auto) Lymph # 0.7 L [place] # Seg Neutrophils % 88.1 H Seg Neuts % (Manual) Lymphocytes % (Manual) Nucleated RBC % Seg Neutrophils # 9.6 H Seg Neutrophils # Man Lymphocytes # (Manual) D-Dimer POC ABG pH POC ABG pCO2 POC ABG pO2 VBG pH Sodium Potassium Chloride Carbon Dioxide 21 L BUN 70 H Creatinine 3.3 H Glucose 146 H POC Glucose 149 H Hemoglobin A1c Lactic Acid Calcium 8.0 L Phosphorus Magnesium Iron TIBC AST ALT Troponin T C-Reactive Protein Total Protein Albumin Triglycerides LDL Cholesterol Direct HDL Cholesterol Urine WBC (Auto) Vancomycin Trough Salicylates Acetaminophen % CD3 Cells % CD19 Cells Absolute CD19 Count Miscellaneous Test Crossmatch 08/26/18 08/26/18 08/27/18 11:37 23:54 04:35 WBC RBC 2.50 L Hgb 7.6 L Hct 22.3 L RDW 21.8 H Plt Count Lymph % (Auto) 7.3 L [place] % (Auto) Lymph # 0.7 L [place] # Seg Neutrophils % 85.6 H Seg Neuts % (Manual) Lymphocytes % (Manual) Nucleated RBC % Seg Neutrophils # 8.6 H Seg Neutrophils # Man Lymphocytes # (Manual) D-Dimer POC ABG pH POC ABG pCO2 POC ABG pO2 VBG pH Sodium Potassium Chloride Carbon Dioxide BUN Creatinine Glucose POC Glucose 183 H 150 H Hemoglobin A1c Lactic Acid Calcium Phosphorus Magnesium Iron TIBC AST ALT Troponin T C-Reactive Protein Total Protein Albumin Triglycerides LDL Cholesterol Direct HDL Cholesterol Urine WBC (Auto) Vancomycin Trough Salicylates Acetaminophen % CD3 Cells % CD19 Cells Absolute CD19 Count Miscellaneous Test Crossmatch 08/27/18 08/27/18 08/28/18 04:35 12:17 04:43 WBC RBC Hgb Hct RDW Plt Count Lymph % (Auto) [place] % (Auto) Lymph # [place] # Seg Neutrophils % Seg Neuts % (Manual) Lymphocytes % (Manual) Nucleated RBC % Seg Neutrophils # Seg Neutrophils # Man Lymphocytes # (Manual) D-Dimer POC ABG pH POC ABG pCO2 32.1 L 33.8 L POC ABG pO2 68 L 78 L VBG pH Sodium Potassium Chloride Carbon Dioxide 19 L BUN 67 H Creatinine 2.9 H Glucose 155 H POC Glucose Hemoglobin A1c Lactic Acid Calcium Phosphorus 4.70 H Magnesium Iron TIBC AST ALT Troponin T C-Reactive Protein Total Protein Albumin Triglycerides LDL Cholesterol Direct HDL Cholesterol Urine WBC (Auto) Vancomycin Trough Salicylates Acetaminophen % CD3 Cells % CD19 Cells Absolute CD19 Count Miscellaneous Test Crossmatch 08/28/18 08/28/18 08/28/18 05:03 05:20 05:20 WBC RBC 2.43 L Hgb 7.4 L Hct 21.8 L RDW 20.8 H Plt Count Lymph % (Auto) 7.6 L [place] % (Auto) 8.7 H Lymph # 0.7 L [place] # Seg Neutrophils % 82.9 H Seg Neuts % (Manual) Lymphocytes % (Manual) Nucleated RBC % Seg Neutrophils # Seg Neutrophils # Man Lymphocytes # (Manual) D-Dimer POC ABG pH POC ABG pCO2 POC ABG pO2 VBG pH Sodium Potassium Chloride 107.8 H Carbon Dioxide 21 L BUN 55 H Creatinine 2.0 H Glucose 177 H POC Glucose 160 H Hemoglobin A1c Lactic Acid Calcium Phosphorus Magnesium Iron TIBC AST ALT Troponin T C-Reactive Protein Total Protein Albumin Triglycerides LDL Cholesterol Direct HDL Cholesterol Urine WBC (Auto) Vancomycin Trough Salicylates Acetaminophen % CD3 Cells % CD19 Cells Absolute CD19 Count Miscellaneous Test Crossmatch 08/28/18 08/28/18 08/28/18 12:18 18:58 22:31 WBC RBC Hgb Hct RDW Plt Count Lymph % (Auto) [place] % (Auto) Lymph # [place] # Seg Neutrophils % Seg Neuts % (Manual) Lymphocytes % (Manual) Nucleated RBC % Seg Neutrophils # Seg Neutrophils # Man Lymphocytes # (Manual) D-Dimer POC ABG pH POC ABG pCO2 34.4 L POC ABG pO2 67 L VBG pH Sodium Potassium Chloride Carbon Dioxide BUN Creatinine Glucose POC Glucose 164 H 149 H Hemoglobin A1c Lactic Acid Calcium Phosphorus Magnesium Iron TIBC AST ALT Troponin T C-Reactive Protein Total Protein Albumin Triglycerides LDL Cholesterol Direct HDL Cholesterol Urine WBC (Auto) Vancomycin Trough Salicylates Acetaminophen % CD3 Cells % CD19 Cells Absolute CD19 Count Miscellaneous Test Crossmatch 08/28/18 08/29/18 08/29/18 23:33 05:25 05:25 WBC RBC 2.30 L Hgb 7.0 L Hct 20.9 L RDW 21.0 H Plt Count Lymph % (Auto) 11.5 L [place] % (Auto) 9.2 H Lymph # 0.8 L [place] # Seg Neutrophils % 78.8 H Seg Neuts % (Manual) Lymphocytes % (Manual) Nucleated RBC % Seg Neutrophils # Seg Neutrophils # Man Lymphocytes # (Manual) D-Dimer POC ABG pH POC ABG pCO2 POC ABG pO2 VBG pH Sodium Potassium Chloride 111.1 H Carbon Dioxide BUN 55 H Creatinine 1.8 H Glucose 162 H POC Glucose 143 H Hemoglobin A1c Lactic Acid Calcium Phosphorus Magnesium Iron TIBC AST 46 H ALT < 5 L Troponin T C-Reactive Protein Total Protein 5.7 L Albumin 2.1 L Triglycerides LDL Cholesterol Direct HDL Cholesterol Urine WBC (Auto) Vancomycin Trough Salicylates Acetaminophen % CD3 Cells % CD19 Cells Absolute CD19 Count Miscellaneous Test Crossmatch 08/29/18 08/29/18 08/30/18 18:19 23:35 05:03 WBC RBC Hgb Hct RDW Plt Count Lymph % (Auto) [place] % (Auto) Lymph # [place] # Seg Neutrophils % Seg Neuts % (Manual) Lymphocytes % (Manual) Nucleated RBC % Seg Neutrophils # Seg Neutrophils # Man Lymphocytes # (Manual) D-Dimer POC ABG pH POC ABG pCO2 POC ABG pO2 VBG pH Sodium Potassium Chloride Carbon Dioxide BUN Creatinine Glucose POC Glucose 155 H 139 H 122 H Hemoglobin A1c Lactic Acid Calcium Phosphorus Magnesium Iron TIBC AST ALT Troponin T C-Reactive Protein Total Protein Albumin Triglycerides LDL Cholesterol Direct HDL Cholesterol Urine WBC (Auto) Vancomycin Trough Salicylates Acetaminophen % CD3 Cells % CD19 Cells Absolute CD19 Count Miscellaneous Test Crossmatch 08/30/18 08/30/18 08/30/18 09:33 09:33 09:54 WBC RBC 2.58 L Hgb 7.9 L Hct 23.5 L RDW 20.9 H Plt Count Lymph % (Auto) 8.0 L [place] % (Auto) 9.7 H Lymph # 0.8 L [place] # 1.0 H Seg Neutrophils % 82.1 H Seg Neuts % (Manual) Lymphocytes % (Manual) Nucleated RBC % Seg Neutrophils # 8.2 H Seg Neutrophils # Man Lymphocytes # (Manual) D-Dimer POC ABG pH POC ABG pCO2 POC ABG pO2 VBG pH Sodium 146 H Potassium Chloride 110.7 H Carbon Dioxide BUN 56 H Creatinine 1.9 H Glucose 145 H POC Glucose Hemoglobin A1c Lactic Acid Calcium Phosphorus 4.60 H Magnesium Iron TIBC AST ALT < 5 L Troponin T C-Reactive Protein Total Protein Albumin 2.7 L Triglycerides LDL Cholesterol Direct HDL Cholesterol Urine WBC (Auto) Vancomycin Trough Salicylates Acetaminophen % CD3 Cells % CD19 Cells Absolute CD19 Count Miscellaneous Test Flexitest 1 H Crossmatch 08/30/18 08/30/18 08/30/18 09:57 11:26 18:08 WBC RBC Hgb Hct RDW Plt Count Lymph % (Auto) [place] % (Auto) Lymph # [place] # Seg Neutrophils % Seg Neuts % (Manual) Lymphocytes % (Manual) Nucleated RBC % Seg Neutrophils # Seg Neutrophils # Man Lymphocytes # (Manual) D-Dimer POC ABG pH POC ABG pCO2 POC ABG pO2 VBG pH Sodium Potassium Chloride Carbon Dioxide BUN Creatinine Glucose POC Glucose 149 H 156 H Hemoglobin A1c Lactic Acid Calcium Phosphorus Magnesium Iron TIBC AST ALT Troponin T C-Reactive Protein Total Protein Albumin Triglycerides LDL Cholesterol Direct HDL Cholesterol Urine WBC (Auto) Vancomycin Trough Salicylates Acetaminophen % CD3 Cells % CD19 Cells Absolute CD19 Count Miscellaneous Test Flexitest 1 H Crossmatch 08/30/18 08/31/18 08/31/18 23:14 05:16 08:40 WBC RBC Hgb Hct RDW Plt Count Lymph % (Auto) [place] % (Auto) Lymph # [place] # Seg Neutrophils % Seg Neuts % (Manual) Lymphocytes % (Manual) Nucleated RBC % Seg Neutrophils # Seg Neutrophils # Man Lymphocytes # (Manual) D-Dimer POC ABG pH POC ABG pCO2 POC ABG pO2 VBG pH Sodium 151 H Potassium Chloride 113.8 H Carbon Dioxide BUN 45 H Creatinine Glucose 144 H POC Glucose 117 H 133 H Hemoglobin A1c Lactic Acid Calcium Phosphorus Magnesium Iron TIBC AST ALT Troponin T C-Reactive Protein Total Protein Albumin Triglycerides LDL Cholesterol Direct HDL Cholesterol Urine WBC (Auto) Vancomycin Trough Salicylates Acetaminophen % CD3 Cells % CD19 Cells Absolute CD19 Count Miscellaneous Test Crossmatch 08/31/18 09/01/18 09/01/18 23:46 04:45 04:45 WBC RBC 2.38 L Hgb 7.3 L Hct 22.1 L RDW 21.1 H Plt Count Lymph % (Auto) [place] % (Auto) Lymph # [place] # Seg Neutrophils % Seg Neuts % (Manual) 93.0 H Lymphocytes % (Manual) 4.0 L Nucleated RBC % Seg Neutrophils # Seg Neutrophils # Man 10.1 H Lymphocytes # (Manual) 0.4 L D-Dimer POC ABG pH POC ABG pCO2 POC ABG pO2 VBG pH Sodium 156 H Potassium 3.1 L Chloride 115.2 H Carbon Dioxide BUN 34 H Creatinine Glucose 125 H POC Glucose 124 H Hemoglobin A1c Lactic Acid Calcium Phosphorus Magnesium Iron TIBC AST ALT Troponin T C-Reactive Protein Total Protein Albumin Triglycerides LDL Cholesterol Direct HDL Cholesterol Urine WBC (Auto) Vancomycin Trough Salicylates Acetaminophen % CD3 Cells % CD19 Cells Absolute CD19 Count Miscellaneous Test Crossmatch 09/01/18 09/01/18 09/01/18 05:34 11:20 17:52 WBC RBC Hgb Hct RDW Plt Count Lymph % (Auto) [place] % (Auto) Lymph # [place] # Seg Neutrophils % Seg Neuts % (Manual) Lymphocytes % (Manual) Nucleated RBC % Seg Neutrophils # Seg Neutrophils # Man Lymphocytes # (Manual) D-Dimer POC ABG pH 7.553 H POC ABG pCO2 POC ABG pO2 74 L VBG pH Sodium Potassium Chloride Carbon Dioxide BUN Creatinine Glucose POC Glucose 128 H 146 H Hemoglobin A1c Lactic Acid Calcium Phosphorus Magnesium Iron TIBC AST ALT Troponin T C-Reactive Protein Total Protein Albumin Triglycerides LDL Cholesterol Direct HDL Cholesterol Urine WBC (Auto) Vancomycin Trough Salicylates Acetaminophen % CD3 Cells % CD19 Cells Absolute CD19 Count Miscellaneous Test Crossmatch 09/01/18 09/02/18 09/02/18 17:52 04:13 04:58 WBC 16.4 H RBC 2.64 L Hgb 7.9 L Hct 24.3 L RDW 20.8 H Plt Count Lymph % (Auto) [place] % (Auto) Lymph # [place] # Seg Neutrophils % Seg Neuts % (Manual) 96.0 H Lymphocytes % (Manual) 1.0 L Nucleated RBC % Seg Neutrophils # Seg Neutrophils # Man 15.7 H Lymphocytes # (Manual) 0.2 L D-Dimer POC ABG pH 7.488 H POC ABG pCO2 POC ABG pO2 63 L VBG pH Sodium Potassium Chloride Carbon Dioxide BUN Creatinine Glucose POC Glucose 143 H Hemoglobin A1c Lactic Acid Calcium Phosphorus Magnesium Iron TIBC AST ALT Troponin T C-Reactive Protein Total Protein Albumin Triglycerides LDL Cholesterol Direct HDL Cholesterol Urine WBC (Auto) Vancomycin Trough Salicylates Acetaminophen % CD3 Cells % CD19 Cells Absolute CD19 Count Miscellaneous Test Crossmatch 09/02/18 09/02/18 09/02/18 04:58 11:03 18:18 WBC RBC Hgb Hct RDW Plt Count Lymph % (Auto) [place] % (Auto) Lymph # [place] # Seg Neutrophils % Seg Neuts % (Manual) Lymphocytes % (Manual) Nucleated RBC % Seg Neutrophils # Seg Neutrophils # Man Lymphocytes # (Manual) D-Dimer POC ABG pH 7.344 L POC ABG pCO2 52.8 H POC ABG pO2 VBG pH Sodium 158 H Potassium 2.9 L* Chloride 115.7 H Carbon Dioxide BUN 27 H Creatinine 0.6 L Glucose 128 H POC Glucose 121 H Hemoglobin A1c Lactic Acid Calcium Phosphorus Magnesium 1.60 L Iron TIBC AST 64 H ALT Troponin T C-Reactive Protein Total Protein Albumin 2.6 L Triglycerides LDL Cholesterol Direct HDL Cholesterol Urine WBC (Auto) Vancomycin Trough Salicylates Acetaminophen % CD3 Cells % CD19 Cells Absolute CD19 Count Miscellaneous Test Crossmatch 09/02/18 09/03/18 09/03/18 23:06 03:36 04:25 WBC RBC 2.20 L Hgb 6.7 L Hct 20.9 L RDW 21.1 H Plt Count Lymph % (Auto) [place] % (Auto) Lymph # [place] # Seg Neutrophils % Seg Neuts % (Manual) 90.0 H Lymphocytes % (Manual) 5.0 L Nucleated RBC % Seg Neutrophils # Seg Neutrophils # Man 8.7 H Lymphocytes # (Manual) 0.5 L D-Dimer POC ABG pH POC ABG pCO2 POC ABG pO2 54 L VBG pH Sodium Potassium Chloride Carbon Dioxide BUN Creatinine Glucose POC Glucose 121 H Hemoglobin A1c Lactic Acid Calcium Phosphorus Magnesium Iron TIBC AST ALT Troponin T C-Reactive Protein Total Protein Albumin Triglycerides LDL Cholesterol Direct HDL Cholesterol Urine WBC (Auto) Vancomycin Trough Salicylates Acetaminophen % CD3 Cells % CD19 Cells Absolute CD19 Count Miscellaneous Test Crossmatch 09/03/18 09/03/18 09/03/18 04:25 05:45 10:24 WBC RBC Hgb Hct RDW Plt Count Lymph % (Auto) [place] % (Auto) Lymph # [place] # Seg Neutrophils % Seg Neuts % (Manual) Lymphocytes % (Manual) Nucleated RBC % Seg Neutrophils # Seg Neutrophils # Man Lymphocytes # (Manual) D-Dimer POC ABG pH POC ABG pCO2 POC ABG pO2 VBG pH Sodium 158 H Potassium 3.1 L Chloride 120.4 H Carbon Dioxide BUN 25 H Creatinine 0.6 L Glucose 127 H POC Glucose 178 H Hemoglobin A1c Lactic Acid Calcium 7.9 L Phosphorus Magnesium Iron TIBC AST ALT Troponin T C-Reactive Protein Total Protein 6.0 L Albumin 2.4 L Triglycerides LDL Cholesterol Direct HDL Cholesterol Urine WBC (Auto) Vancomycin Trough Salicylates Acetaminophen % CD3 Cells % CD19 Cells Absolute CD19 Count Miscellaneous Test Crossmatch See Detail 09/03/18 09/03/18 09/04/18 11:27 23:09 04:42 WBC RBC Hgb Hct RDW Plt Count Lymph % (Auto) [place] % (Auto) Lymph # [place] # Seg Neutrophils % Seg Neuts % (Manual) Lymphocytes % (Manual) Nucleated RBC % Seg Neutrophils # Seg Neutrophils # Man Lymphocytes # (Manual) D-Dimer POC ABG pH 7.293 L POC ABG pCO2 50.2 H POC ABG pO2 VBG pH Sodium Potassium Chloride Carbon Dioxide BUN Creatinine Glucose POC Glucose 107 H 139 H Hemoglobin A1c Lactic Acid Calcium Phosphorus Magnesium Iron TIBC AST ALT Troponin T C-Reactive Protein Total Protein Albumin Triglycerides LDL Cholesterol Direct HDL Cholesterol Urine WBC (Auto) Vancomycin Trough Salicylates Acetaminophen % CD3 Cells % CD19 Cells Absolute CD19 Count Miscellaneous Test Crossmatch 09/04/18 09/04/18 09/04/18 05:00 06:30 06:30 WBC RBC 2.32 L Hgb 7.0 L Hct 21.9 L RDW 20.2 H Plt Count Lymph % (Auto) [place] % (Auto) Lymph # [place] # Seg Neutrophils % 80.1 H Seg Neuts % (Manual) Lymphocytes % (Manual) Nucleated RBC % Seg Neutrophils # 8.2 H Seg Neutrophils # Man Lymphocytes # (Manual) D-Dimer POC ABG pH POC ABG pCO2 POC ABG pO2 VBG pH Sodium 150 H D Potassium Chloride 115.9 H Carbon Dioxide BUN 21 H Creatinine 0.6 L Glucose 125 H POC Glucose 154 H Hemoglobin A1c Lactic Acid Calcium 7.9 L Phosphorus Magnesium 1.50 L Iron TIBC AST ALT Troponin T C-Reactive Protein Total Protein Albumin Triglycerides LDL Cholesterol Direct HDL Cholesterol Urine WBC (Auto) Vancomycin Trough Salicylates Acetaminophen % CD3 Cells % CD19 Cells Absolute CD19 Count Miscellaneous Test Crossmatch 09/04/18 09/04/18 09/04/18 11:20 11:51 18:27 WBC RBC Hgb Hct RDW Plt Count Lymph % (Auto) [place] % (Auto) Lymph # [place] # Seg Neutrophils % Seg Neuts % (Manual) Lymphocytes % (Manual) Nucleated RBC % Seg Neutrophils # Seg Neutrophils # Man Lymphocytes # (Manual) D-Dimer POC ABG pH 7.244 L POC ABG pCO2 54.2 H POC ABG pO2 62 L VBG pH Sodium Potassium Chloride Carbon Dioxide BUN Creatinine Glucose POC Glucose 156 H 129 H Hemoglobin A1c Lactic Acid Calcium Phosphorus Magnesium Iron TIBC AST ALT Troponin T C-Reactive Protein Total Protein Albumin Triglycerides LDL Cholesterol Direct HDL Cholesterol Urine WBC (Auto) Vancomycin Trough Salicylates Acetaminophen % CD3 Cells % CD19 Cells Absolute CD19 Count Miscellaneous Test Crossmatch 09/05/18 09/05/18 09/05/18 03:46 04:00 04:00 WBC RBC 2.13 L Hgb 6.4 L Hct 20.1 L RDW 19.9 H Plt Count 117 L Lymph % (Auto) [place] % (Auto) Lymph # 0.9 L [place] # Seg Neutrophils % 81.7 H Seg Neuts % (Manual) Lymphocytes % (Manual) Nucleated RBC % Seg Neutrophils # Seg Neutrophils # Man Lymphocytes # (Manual) D-Dimer POC ABG pH 7.282 L POC ABG pCO2 57.3 H POC ABG pO2 124 H VBG pH Sodium Potassium Chloride 111.0 H Carbon Dioxide BUN 20 H Creatinine Glucose 130 H POC Glucose Hemoglobin A1c Lactic Acid Calcium 7.8 L Phosphorus Magnesium 1.60 L Iron TIBC AST ALT Troponin T C-Reactive Protein Total Protein Albumin Triglycerides LDL Cholesterol Direct HDL Cholesterol Urine WBC (Auto) Vancomycin Trough Salicylates Acetaminophen % CD3 Cells % CD19 Cells Absolute CD19 Count Miscellaneous Test Crossmatch 09/05/18 09/05/18 09/05/18 12:15 17:24 23:24 WBC RBC Hgb Hct RDW Plt Count Lymph % (Auto) [place] % (Auto) Lymph # [place] # Seg Neutrophils % Seg Neuts % (Manual) Lymphocytes % (Manual) Nucleated RBC % Seg Neutrophils # Seg Neutrophils # Man Lymphocytes # (Manual) D-Dimer POC ABG pH POC ABG pCO2 POC ABG pO2 VBG pH Sodium Potassium Chloride Carbon Dioxide BUN Creatinine Glucose POC Glucose 143 H 116 H 116 H Hemoglobin A1c Lactic Acid Calcium Phosphorus Magnesium Iron TIBC AST ALT Troponin T C-Reactive Protein Total Protein Albumin Triglycerides LDL Cholesterol Direct HDL Cholesterol Urine WBC (Auto) Vancomycin Trough Salicylates Acetaminophen % CD3 Cells % CD19 Cells Absolute CD19 Count Miscellaneous Test Crossmatch 09/06/18 09/06/18 09/06/18 03:33 04:20 04:20 WBC RBC 2.45 L Hgb 7.4 L Hct 23.0 L RDW 18.1 H Plt Count 99 L Lymph % (Auto) [place] % (Auto) Lymph # 1.0 L [place] # Seg Neutrophils % 78.0 H Seg Neuts % (Manual) Lymphocytes % (Manual) Nucleated RBC % Seg Neutrophils # Seg Neutrophils # Man Lymphocytes # (Manual) D-Dimer POC ABG pH 7.303 L POC ABG pCO2 49.2 H POC ABG pO2 73 L VBG pH Sodium Potassium Chloride 109.3 H Carbon Dioxide BUN 24 H Creatinine Glucose 108 H POC Glucose Hemoglobin A1c Lactic Acid Calcium 8.1 L Phosphorus Magnesium Iron TIBC AST ALT Troponin T C-Reactive Protein Total Protein Albumin Triglycerides LDL Cholesterol Direct HDL Cholesterol Urine WBC (Auto) Vancomycin Trough Salicylates Acetaminophen % CD3 Cells % CD19 Cells Absolute CD19 Count Miscellaneous Test Crossmatch 09/06/18 09/06/18 09/06/18 04:55 11:29 14:40 WBC RBC Hgb Hct RDW Plt Count Lymph % (Auto) [place] % (Auto) Lymph # [place] # Seg Neutrophils % Seg Neuts % (Manual) Lymphocytes % (Manual) Nucleated RBC % Seg Neutrophils # Seg Neutrophils # Man Lymphocytes # (Manual) D-Dimer POC ABG pH POC ABG pCO2 POC ABG pO2 VBG pH Sodium Potassium Chloride Carbon Dioxide BUN Creatinine Glucose POC Glucose 124 H 149 H Hemoglobin A1c Lactic Acid Calcium Phosphorus Magnesium Iron TIBC AST ALT Troponin T C-Reactive Protein Total Protein Albumin Triglycerides LDL Cholesterol Direct HDL Cholesterol Urine WBC (Auto) Vancomycin Trough 28.6 H Salicylates Acetaminophen % CD3 Cells % CD19 Cells Absolute CD19 Count Miscellaneous Test Crossmatch 09/06/18 09/06/18 09/07/18 17:43 20:08 00:39 WBC RBC Hgb Hct RDW Plt Count Lymph % (Auto) [place] % (Auto) Lymph # [place] # Seg Neutrophils % Seg Neuts % (Manual) Lymphocytes % (Manual) Nucleated RBC % Seg Neutrophils # Seg Neutrophils # Man Lymphocytes # (Manual) D-Dimer POC ABG pH POC ABG pCO2 POC ABG pO2 VBG pH Sodium Potassium Chloride Carbon Dioxide BUN Creatinine Glucose POC Glucose 138 H 118 H 131 H Hemoglobin A1c Lactic Acid Calcium Phosphorus Magnesium Iron TIBC AST ALT Troponin T C-Reactive Protein Total Protein Albumin Triglycerides LDL Cholesterol Direct HDL Cholesterol Urine WBC (Auto) Vancomycin Trough Salicylates Acetaminophen % CD3 Cells % CD19 Cells Absolute CD19 Count Miscellaneous Test Crossmatch 09/07/18 09/07/18 09/07/18 05:40 05:40 12:03 WBC RBC 2.40 L Hgb 7.3 L Hct 22.5 L RDW 17.8 H Plt Count 92 L Lymph % (Auto) [place] % (Auto) Lymph # [place] # Seg Neutrophils % Seg Neuts % (Manual) 80.0 H Lymphocytes % (Manual) Nucleated RBC % 1.0 H Seg Neutrophils # Seg Neutrophils # Man Lymphocytes # (Manual) 0.8 L D-Dimer POC ABG pH POC ABG pCO2 POC ABG pO2 VBG pH Sodium Potassium Chloride 109.8 H Carbon Dioxide BUN 26 H Creatinine Glucose 118 H POC Glucose 145 H Hemoglobin A1c Lactic Acid Calcium 8.0 L Phosphorus Magnesium Iron 26 L TIBC 150 L AST 88 H ALT Troponin T C-Reactive Protein Total Protein 5.8 L Albumin 2.1 L Triglycerides LDL Cholesterol Direct HDL Cholesterol Urine WBC (Auto) Vancomycin Trough Salicylates Acetaminophen % CD3 Cells % CD19 Cells Absolute CD19 Count Miscellaneous Test Crossmatch 09/07/18 09/07/18 09/08/18 17:39 23:21 05:48 WBC RBC Hgb Hct RDW Plt Count Lymph % (Auto) [place] % (Auto) Lymph # [place] # Seg Neutrophils % Seg Neuts % (Manual) Lymphocytes % (Manual) Nucleated RBC % Seg Neutrophils # Seg Neutrophils # Man Lymphocytes # (Manual) D-Dimer POC ABG pH POC ABG pCO2 POC ABG pO2 VBG pH Sodium Potassium Chloride Carbon Dioxide BUN Creatinine Glucose POC Glucose 128 H 136 H 129 H Hemoglobin A1c Lactic Acid Calcium Phosphorus Magnesium Iron TIBC AST ALT Troponin T C-Reactive Protein Total Protein Albumin Triglycerides LDL Cholesterol Direct HDL Cholesterol Urine WBC (Auto) Vancomycin Trough Salicylates Acetaminophen % CD3 Cells % CD19 Cells Absolute CD19 Count Miscellaneous Test Crossmatch 09/08/18 09/08/18 09/08/18 06:17 10:06 10:42 WBC RBC Hgb Hct RDW Plt Count Lymph % (Auto) [place] % (Auto) Lymph # [place] # Seg Neutrophils % Seg Neuts % (Manual) Lymphocytes % (Manual) Nucleated RBC % Seg Neutrophils # Seg Neutrophils # Man Lymphocytes # (Manual) D-Dimer POC ABG pH 7.292 L 7.276 L POC ABG pCO2 56.9 H 65.1 H POC ABG pO2 VBG pH Sodium 146 H Potassium Chloride 109.1 H Carbon Dioxide BUN 28 H Creatinine Glucose 165 H POC Glucose Hemoglobin A1c Lactic Acid Calcium Phosphorus Magnesium Iron TIBC AST ALT Troponin T C-Reactive Protein Total Protein Albumin Triglycerides LDL Cholesterol Direct HDL Cholesterol Urine WBC (Auto) Vancomycin Trough Salicylates Acetaminophen % CD3 Cells % CD19 Cells Absolute CD19 Count Miscellaneous Test Crossmatch 09/08/18 09/08/18 09/08/18 11:06 18:07 23:20 WBC RBC Hgb Hct RDW Plt Count Lymph % (Auto) [place] % (Auto) Lymph # [place] # Seg Neutrophils % Seg Neuts % (Manual) Lymphocytes % (Manual) Nucleated RBC % Seg Neutrophils # Seg Neutrophils # Man Lymphocytes # (Manual) D-Dimer POC ABG pH POC ABG pCO2 POC ABG pO2 VBG pH Sodium Potassium Chloride Carbon Dioxide BUN Creatinine Glucose POC Glucose 165 H 140 H 124 H Hemoglobin A1c Lactic Acid Calcium Phosphorus Magnesium Iron TIBC AST ALT Troponin T C-Reactive Protein Total Protein Albumin Triglycerides LDL Cholesterol Direct HDL Cholesterol Urine WBC (Auto) Vancomycin Trough Salicylates Acetaminophen % CD3 Cells % CD19 Cells Absolute CD19 Count Miscellaneous Test Crossmatch 09/09/18 09/09/18 09/09/18 05:04 08:39 08:39 WBC RBC 2.60 L Hgb 8.1 L Hct 24.6 L RDW 17.9 H Plt Count Lymph % (Auto) [place] % (Auto) Lymph # [place] # Seg Neutrophils % Seg Neuts % (Manual) Lymphocytes % (Manual) Nucleated RBC % Seg Neutrophils # Seg Neutrophils # Man Lymphocytes # (Manual) D-Dimer POC ABG pH POC ABG pCO2 POC ABG pO2 VBG pH Sodium Potassium Chloride Carbon Dioxide BUN 32 H Creatinine Glucose 150 H POC Glucose 168 H Hemoglobin A1c Lactic Acid Calcium Phosphorus Magnesium Iron TIBC AST ALT Troponin T C-Reactive Protein Total Protein Albumin Triglycerides LDL Cholesterol Direct HDL Cholesterol Urine WBC (Auto) Vancomycin Trough Salicylates Acetaminophen % CD3 Cells % CD19 Cells Absolute CD19 Count Miscellaneous Test Crossmatch 09/09/18 09/10/18 09/10/18 12:41 04:20 04:20 WBC RBC 2.49 L Hgb 7.7 L Hct 23.4 L RDW 18.0 H Plt Count Lymph % (Auto) 8.2 L [place] % (Auto) Lymph # 0.7 L [place] # Seg Neutrophils % 87.7 H Seg Neuts % (Manual) Lymphocytes % (Manual) Nucleated RBC % Seg Neutrophils # Seg Neutrophils # Man Lymphocytes # (Manual) D-Dimer POC ABG pH POC ABG pCO2 POC ABG pO2 VBG pH Sodium Potassium Chloride Carbon Dioxide 31 H BUN 39 H Creatinine Glucose 183 H POC Glucose 150 H Hemoglobin A1c Lactic Acid Calcium Phosphorus Magnesium Iron TIBC AST 85 H ALT 58 H Troponin T C-Reactive Protein Total Protein Albumin 2.5 L Triglycerides LDL Cholesterol Direct HDL Cholesterol Urine WBC (Auto) Vancomycin Trough Salicylates Acetaminophen % CD3 Cells % CD19 Cells Absolute CD19 Count Miscellaneous Test Crossmatch 09/10/18 09/10/18 09/10/18 04:39 05:06 11:17 WBC RBC Hgb Hct RDW Plt Count Lymph % (Auto) [place] % (Auto) Lymph # [place] # Seg Neutrophils % Seg Neuts % (Manual) Lymphocytes % (Manual) Nucleated RBC % Seg Neutrophils # Seg Neutrophils # Man Lymphocytes # (Manual) D-Dimer POC ABG pH POC ABG pCO2 51.4 H POC ABG pO2 VBG pH Sodium Potassium Chloride Carbon Dioxide BUN Creatinine Glucose POC Glucose 185 H 159 H Hemoglobin A1c Lactic Acid Calcium Phosphorus Magnesium Iron TIBC AST ALT Troponin T C-Reactive Protein Total Protein Albumin Triglycerides LDL Cholesterol Direct HDL Cholesterol Urine WBC (Auto) Vancomycin Trough Salicylates Acetaminophen % CD3 Cells % CD19 Cells Absolute CD19 Count Miscellaneous Test Crossmatch 09/10/18 09/11/18 09/11/18 16:57 00:17 01:10 WBC RBC Hgb Hct RDW Plt Count Lymph % (Auto) [place] % (Auto) Lymph # [place] # Seg Neutrophils % Seg Neuts % (Manual) Lymphocytes % (Manual) Nucleated RBC % Seg Neutrophils # Seg Neutrophils # Man Lymphocytes # (Manual) D-Dimer POC ABG pH POC ABG pCO2 POC ABG pO2 VBG pH Sodium Potassium Chloride Carbon Dioxide 34 H BUN 44 H Creatinine Glucose 154 H POC Glucose 177 H 163 H Hemoglobin A1c Lactic Acid Calcium Phosphorus Magnesium Iron TIBC AST 86 H ALT 68 H Troponin T C-Reactive Protein Total Protein Albumin 2.6 L Triglycerides LDL Cholesterol Direct HDL Cholesterol Urine WBC (Auto) Vancomycin Trough Salicylates Acetaminophen % CD3 Cells % CD19 Cells Absolute CD19 Count Miscellaneous Test Crossmatch 09/11/18 09/11/18 09/11/18 01:10 06:03 09:00 WBC 13.7 H RBC 2.61 L Hgb 8.0 L Hct 24.6 L RDW 19.1 H Plt Count Lymph % (Auto) 6.1 L [place] % (Auto) Lymph # 0.8 L [place] # Seg Neutrophils % 87.7 H Seg Neuts % (Manual) Lymphocytes % (Manual) Nucleated RBC % Seg Neutrophils # 12.0 H Seg Neutrophils # Man Lymphocytes # (Manual) D-Dimer POC ABG pH POC ABG pCO2 POC ABG pO2 VBG pH Sodium Potassium Chloride Carbon Dioxide 33 H BUN 45 H Creatinine Glucose 147 H POC Glucose 180 H Hemoglobin A1c Lactic Acid Calcium Phosphorus Magnesium Iron TIBC AST ALT Troponin T C-Reactive Protein Total Protein Albumin Triglycerides LDL Cholesterol Direct HDL Cholesterol Urine WBC (Auto) Vancomycin Trough Salicylates Acetaminophen % CD3 Cells % CD19 Cells Absolute CD19 Count Miscellaneous Test Crossmatch 09/11/18 09/11/18 09/11/18 11:14 11:31 17:11 WBC RBC Hgb Hct RDW Plt Count Lymph % (Auto) [place] % (Auto) Lymph # [place] # Seg Neutrophils % Seg Neuts % (Manual) Lymphocytes % (Manual) Nucleated RBC % Seg Neutrophils # Seg Neutrophils # Man Lymphocytes # (Manual) D-Dimer POC ABG pH 7.498 H POC ABG pCO2 46.3 H POC ABG pO2 VBG pH Sodium Potassium Chloride Carbon Dioxide BUN Creatinine Glucose POC Glucose 163 H 202 H Hemoglobin A1c Lactic Acid Calcium Phosphorus Magnesium Iron TIBC AST ALT Troponin T C-Reactive Protein Total Protein Albumin Triglycerides LDL Cholesterol Direct HDL Cholesterol Urine WBC (Auto) Vancomycin Trough Salicylates Acetaminophen % CD3 Cells % CD19 Cells Absolute CD19 Count Miscellaneous Test Crossmatch 09/11/18 09/12/18 09/12/18 23:49 03:16 05:30 WBC RBC 2.36 L Hgb 7.3 L Hct 22.3 L RDW 18.4 H Plt Count Lymph % (Auto) 13.0 L [place] % (Auto) 9.3 H Lymph # 1.1 L [place] # Seg Neutrophils % 77.5 H Seg Neuts % (Manual) Lymphocytes % (Manual) Nucleated RBC % Seg Neutrophils # Seg Neutrophils # Man Lymphocytes # (Manual) D-Dimer POC ABG pH 7.517 H POC ABG pCO2 48.8 H POC ABG pO2 VBG pH Sodium Potassium Chloride Carbon Dioxide BUN Creatinine Glucose POC Glucose 163 H Hemoglobin A1c Lactic Acid Calcium Phosphorus Magnesium Iron TIBC AST ALT Troponin T C-Reactive Protein Total Protein Albumin Triglycerides LDL Cholesterol Direct HDL Cholesterol Urine WBC (Auto) Vancomycin Trough Salicylates Acetaminophen % CD3 Cells % CD19 Cells Absolute CD19 Count Miscellaneous Test Crossmatch 09/12/18 09/12/18 09/12/18 05:30 06:07 11:36 WBC RBC Hgb Hct RDW Plt Count Lymph % (Auto) [place] % (Auto) Lymph # [place] # Seg Neutrophils % Seg Neuts % (Manual) Lymphocytes % (Manual) Nucleated RBC % Seg Neutrophils # Seg Neutrophils # Man Lymphocytes # (Manual) D-Dimer POC ABG pH POC ABG pCO2 POC ABG pO2 VBG pH Sodium 148 H Potassium Chloride Carbon Dioxide 36 H BUN 46 H Creatinine Glucose 152 H POC Glucose 172 H 212 H Hemoglobin A1c Lactic Acid Calcium Phosphorus Magnesium Iron TIBC AST ALT Troponin T C-Reactive Protein Total Protein Albumin Triglycerides LDL Cholesterol Direct HDL Cholesterol Urine WBC (Auto) Vancomycin Trough Salicylates Acetaminophen % CD3 Cells % CD19 Cells Absolute CD19 Count Miscellaneous Test Crossmatch 09/12/18 09/12/18 09/13/18 18:02 23:19 03:55 WBC RBC Hgb Hct RDW Plt Count Lymph % (Auto) [place] % (Auto) Lymph # [place] # Seg Neutrophils % Seg Neuts % (Manual) Lymphocytes % (Manual) Nucleated RBC % Seg Neutrophils # Seg Neutrophils # Man Lymphocytes # (Manual) D-Dimer POC ABG pH 7.520 H POC ABG pCO2 48.0 H POC ABG pO2 58 L VBG pH Sodium Potassium Chloride Carbon Dioxide BUN Creatinine Glucose POC Glucose 142 H 161 H Hemoglobin A1c Lactic Acid Calcium Phosphorus Magnesium Iron TIBC AST ALT Troponin T C-Reactive Protein Total Protein Albumin Triglycerides LDL Cholesterol Direct HDL Cholesterol Urine WBC (Auto) Vancomycin Trough Salicylates Acetaminophen % CD3 Cells % CD19 Cells Absolute CD19 Count Miscellaneous Test Crossmatch 09/13/18 09/13/18 09/13/18 05:11 05:25 05:25 WBC RBC 2.38 L Hgb 7.6 L Hct 22.4 L RDW 18.6 H Plt Count Lymph % (Auto) [place] % (Auto) Lymph # [place] # Seg Neutrophils % Seg Neuts % (Manual) Lymphocytes % (Manual) Nucleated RBC % Seg Neutrophils # Seg Neutrophils # Man Lymphocytes # (Manual) D-Dimer POC ABG pH POC ABG pCO2 POC ABG pO2 VBG pH Sodium Potassium 3.2 L Chloride 97.5 L Carbon Dioxide 38 H BUN 38 H Creatinine 0.6 L Glucose 120 H POC Glucose 139 H Hemoglobin A1c Lactic Acid Calcium 8.1 L Phosphorus Magnesium Iron TIBC AST 120 H ALT 124 H Troponin T C-Reactive Protein Total Protein 5.9 L Albumin 2.6 L Triglycerides LDL Cholesterol Direct HDL Cholesterol Urine WBC (Auto) Vancomycin Trough Salicylates Acetaminophen % CD3 Cells % CD19 Cells Absolute CD19 Count Miscellaneous Test Crossmatch 09/13/18 09/13/18 09/13/18 11:31 17:46 23:23 WBC RBC Hgb Hct RDW Plt Count Lymph % (Auto) [place] % (Auto) Lymph # [place] # Seg Neutrophils % Seg Neuts % (Manual) Lymphocytes % (Manual) Nucleated RBC % Seg Neutrophils # Seg Neutrophils # Man Lymphocytes # (Manual) D-Dimer POC ABG pH POC ABG pCO2 POC ABG pO2 VBG pH Sodium Potassium Chloride Carbon Dioxide BUN Creatinine Glucose POC Glucose 160 H 145 H 135 H Hemoglobin A1c Lactic Acid Calcium Phosphorus Magnesium Iron TIBC AST ALT Troponin T C-Reactive Protein Total Protein Albumin Triglycerides LDL Cholesterol Direct HDL Cholesterol Urine WBC (Auto) Vancomycin Trough Salicylates Acetaminophen % CD3 Cells % CD19 Cells Absolute CD19 Count Miscellaneous Test Crossmatch 09/14/18 09/14/18 09/14/18 03:56 04:55 04:55 WBC RBC 2.28 L Hgb 7.1 L Hct 21.4 L RDW 18.2 H Plt Count Lymph % (Auto) [place] % (Auto) Lymph # [place] # Seg Neutrophils % 76.4 H Seg Neuts % (Manual) Lymphocytes % (Manual) Nucleated RBC % Seg Neutrophils # Seg Neutrophils # Man Lymphocytes # (Manual) D-Dimer POC ABG pH 7.503 H POC ABG pCO2 49.1 H POC ABG pO2 79 L VBG pH Sodium Potassium Chloride 97.7 L Carbon Dioxide 35 H BUN 32 H Creatinine 0.6 L Glucose 114 H POC Glucose Hemoglobin A1c Lactic Acid Calcium Phosphorus Magnesium Iron TIBC AST 60 H ALT 88 H Troponin T C-Reactive Protein Total Protein 5.6 L Albumin 2.2 L Triglycerides LDL Cholesterol Direct HDL Cholesterol Urine WBC (Auto) Vancomycin Trough Salicylates Acetaminophen % CD3 Cells % CD19 Cells Absolute CD19 Count Miscellaneous Test Crossmatch 09/14/18 09/14/18 09/14/18 05:14 12:00 12:27 WBC RBC Hgb Hct RDW Plt Count Lymph % (Auto) [place] % (Auto) Lymph # [place] # Seg Neutrophils % Seg Neuts % (Manual) Lymphocytes % (Manual) Nucleated RBC % Seg Neutrophils # Seg Neutrophils # Man Lymphocytes # (Manual) D-Dimer POC ABG pH POC ABG pCO2 POC ABG pO2 VBG pH Sodium Potassium Chloride Carbon Dioxide BUN Creatinine Glucose POC Glucose 115 H 125 H Hemoglobin A1c Lactic Acid Calcium Phosphorus Magnesium Iron TIBC AST ALT Troponin T C-Reactive Protein Total Protein Albumin Triglycerides LDL Cholesterol Direct HDL Cholesterol Urine WBC (Auto) Vancomycin Trough Salicylates Acetaminophen % CD3 Cells % CD19 Cells Absolute CD19 Count Miscellaneous Test Crossmatch See Detail 09/14/18 09/15/18 09/15/18 17:54 03:49 04:10 WBC RBC 2.46 L Hgb 7.7 L Hct 23.0 L RDW 18.6 H Plt Count Lymph % (Auto) [place] % (Auto) Lymph # 1.1 L [place] # Seg Neutrophils % 74.2 H Seg Neuts % (Manual) Lymphocytes % (Manual) Nucleated RBC % Seg Neutrophils # Seg Neutrophils # Man Lymphocytes # (Manual) D-Dimer POC ABG pH POC ABG pCO2 58.2 H POC ABG pO2 VBG pH Sodium Potassium Chloride Carbon Dioxide BUN Creatinine Glucose POC Glucose 138 H Hemoglobin A1c Lactic Acid Calcium Phosphorus Magnesium Iron TIBC AST ALT Troponin T C-Reactive Protein Total Protein Albumin Triglycerides LDL Cholesterol Direct HDL Cholesterol Urine WBC (Auto) Vancomycin Trough Salicylates Acetaminophen % CD3 Cells % CD19 Cells Absolute CD19 Count Miscellaneous Test Crossmatch 09/15/18 09/15/18 09/15/18 04:10 11:36 11:36 WBC RBC Hgb Hct RDW Plt Count Lymph % (Auto) [place] % (Auto) Lymph # [place] # Seg Neutrophils % Seg Neuts % (Manual) Lymphocytes % (Manual) Nucleated RBC % Seg Neutrophils # Seg Neutrophils # Man Lymphocytes # (Manual) D-Dimer POC ABG pH POC ABG pCO2 53.5 H POC ABG pO2 67 L VBG pH Sodium Potassium Chloride Carbon Dioxide 35 H BUN 21 H Creatinine Glucose POC Glucose 108 H Hemoglobin A1c Lactic Acid Calcium 7.9 L Phosphorus Magnesium Iron TIBC AST ALT Troponin T C-Reactive Protein Total Protein Albumin Triglycerides LDL Cholesterol Direct HDL Cholesterol Urine WBC (Auto) Vancomycin Trough Salicylates Acetaminophen % CD3 Cells % CD19 Cells Absolute CD19 Count Miscellaneous Test Crossmatch 09/16/18 09/16/18 09/16/18 01:16 04:25 11:30 WBC RBC 2.77 L Hgb 8.5 L Hct 25.6 L RDW 17.9 H Plt Count Lymph % (Auto) [place] % (Auto) Lymph # [place] # Seg Neutrophils % Seg Neuts % (Manual) Lymphocytes % (Manual) Nucleated RBC % Seg Neutrophils # Seg Neutrophils # Man Lymphocytes # (Manual) D-Dimer POC ABG pH 7.489 H POC ABG pCO2 47.6 H POC ABG pO2 62 L VBG pH Sodium Potassium Chloride Carbon Dioxide BUN Creatinine Glucose POC Glucose 108 H Hemoglobin A1c Lactic Acid Calcium Phosphorus Magnesium Iron TIBC AST ALT Troponin T C-Reactive Protein Total Protein Albumin Triglycerides LDL Cholesterol Direct HDL Cholesterol Urine WBC (Auto) Vancomycin Trough Salicylates Acetaminophen % CD3 Cells % CD19 Cells Absolute CD19 Count Miscellaneous Test Crossmatch 09/16/18 09/16/18 09/17/18 11:30 23:07 04:22 WBC RBC Hgb Hct RDW Plt Count Lymph % (Auto) [place] % (Auto) Lymph # [place] # Seg Neutrophils % Seg Neuts % (Manual) Lymphocytes % (Manual) Nucleated RBC % Seg Neutrophils # Seg Neutrophils # Man Lymphocytes # (Manual) D-Dimer POC ABG pH 7.576 H POC ABG pCO2 POC ABG pO2 58 L VBG pH Sodium Potassium 3.2 L Chloride 96.6 L Carbon Dioxide 34 H BUN Creatinine Glucose 128 H POC Glucose 147 H Hemoglobin A1c Lactic Acid Calcium Phosphorus Magnesium Iron TIBC AST ALT Troponin T C-Reactive Protein Total Protein Albumin Triglycerides LDL Cholesterol Direct HDL Cholesterol Urine WBC (Auto) Vancomycin Trough Salicylates Acetaminophen % CD3 Cells % CD19 Cells Absolute CD19 Count Miscellaneous Test Crossmatch 09/17/18 05:50 WBC RBC Hgb Hct RDW Plt Count Lymph % (Auto) [place] % (Auto) Lymph # [place] # Seg Neutrophils % Seg Neuts % (Manual) Lymphocytes % (Manual) Nucleated RBC % Seg Neutrophils # Seg Neutrophils # Man Lymphocytes # (Manual) D-Dimer POC ABG pH POC ABG pCO2 POC ABG pO2 VBG pH Sodium Potassium Chloride Carbon Dioxide BUN Creatinine Glucose POC Glucose 138 H Hemoglobin A1c Lactic Acid Calcium Phosphorus Magnesium Iron TIBC AST ALT Troponin T C-Reactive Protein Total Protein Albumin Triglycerides LDL Cholesterol Direct HDL Cholesterol Urine WBC (Auto) Vancomycin Trough Salicylates Acetaminophen % CD3 Cells % CD19 Cells Absolute CD19 Count Miscellaneous Test Crossmatch Allied health notes reviewed: RT (Wean down FIO2 to 60% then start weaning PEEP)
--- NOTE | 2018-09-17 10:31 | Progress Note ---
Assessment and Plan /Hypokalemia, replete, check Mg level /Acute hypoxic hypercapnic respiratory failure; extubated 08/29/18 Re Intubated 09/02/18, vent dependent s/p trach on 09/14/18 Status post bronchoscopy, BAL negative cont nebulizers, pulmonary following /Dysphagia - cannot be placed PEG as could not be transilluminated stomach on EGD - Now planned to get PEG done by IR on Wednesday, cont TF with dobhoff /Thrombocytopenia: Platelet count is Stable Lovenox changed to Arixtra /Anemia: s/p transfusion[4 PRBC] Stool for occult blood x 2 negative, hematology following will transfuse additional unit -Recent EGD at [facility] 08/08/2018 revealing irregular Z line, gastritis and small hiatal hernia - Recent colonoscopy at [facility] 08/08/2018 revealing sigmoid polyp, transverse colon polyps, inflamed hemorrhoids and diverticulosis /Febrile illness; resolved, likely from PNA/sepsis /Hypomagnesemia; Hypernatremia; resolved, /Bileral lower extremity DVT; anticoagulation with arixtra CTA chest negative for PE /Sepsis; due to aspiration pneumonia ; s/p micafungin, meropenem and Vanco per ID Monitor off antibiotics /Hypertension; continue current antihypertensives /Severe malnutrition/hypoalbuminemia; Dietitian following, On TF /Acute kidney injury; probably secondary to ATN, Resolved, /Acute systolic congestive heart failure; EF 25-30%, Cardio following, monitor ins/os Previous echo 03/30/2016 at [facility] revealed normal LVEF Previous stress MPI 03/29/2016 at [facility] revealed no ischemia /Elevated Transaminases; resolved /-DVT prophylaxis; on full dose arixtra, on hold now for possible trach/peg tomorrow Consults and recommendations noted and appreciated Plan of care reviewed with the patient's nurse The high probability of a clinically significant, sudden or life threatening deterioration of the [respiratory, cardiology, ID, renal and metabolic] system(s) required my full and direct attention, intervention and personal management. The aggregate critical care time was [32] minutes. This time is in addition to time spent performing reported procedures but includes the following: [x] Data Review and interpretation [x] Patient assessment and monitoring of vital signs [x] Documentation [x] Medication orders and management Plan of care is reviewed with the patient's nurse Brief History: 68-year-old female patient with history of COPD, arthritis s/p C-spine and lumbar spine surgery, Chronic pain syndrome who was found unconscious in her feces and vomitus, patients family was in [place] for a golf tournament. Patient was brought to the emergency room noted to be severely hypoxic and tachypneic, promptly intubated placed on ventilatory support and admitted to ICU patient was also noted to have possible aspiration pneumonia, completed treatment recommended by ID .currently monitoring of antibiotics . patient also had acute gastroenteritis acute kidney injury nonspecific elevation of troponins as well as septic shock evaluated by multiple specialties successfully weaned and extubated on 08/29/2018 however patient again went into acute respiratory failure requiring reintubation on 09/02/2018, Since then patient is vent dependent, plan for trach and PEG and placement. She is also being treated for acute b/l DVT diagnosed following admission while she was on DVT Px. s/p 4units of PRBC transfusion for anemia, no acute source of active bleeding so far. Hospitalist Physical General appearance: Present: no acute distress, well-nourished, obese, other (on vent with trach) - EENT Eyes: Present: PERRL, EOM intact - Neck Neck: Present: supple, trach on place - Respiratory Respiratory effort: normal Respiratory: bilateral: diminished, rhonchi, negative: rales, wheezing - Cardiovascular Rhythm: regular Heart Sounds: Present: S1 & S2 - Extremities Extremities: no ischemia, No edema - Abdominal General gastrointestinal: soft, non-tender, non-distended, normal bowel sounds - Integumentary Integumentary: Present: clear, warm - Psychiatric Psychiatric: cooperative, other (on vent) - Neurologic Neurologic: move extremities unpurposefull Subjective Date of service: 09/17/18 Principal diagnosis: Acute hypoxemic hypercapnic Resp failure; AE-COPD; Acute kidney injury Interval history: Patient seen and examined medical records reviewed Patient on ventilator support with trach Alert and awake not in acute distress Vital signs noted, no acute issue overnight Objective - Constitutional Vitals: Vital Signs - 12hr 09/16/18 09/16/18 09/16/18 22:46 23:00 23:16 Temperature Pulse Rate 85 88 91 H Pulse Rate [ Anterior Bilateral Throughout] Pulse Rate [ Anterior Bilateral] Pulse Rate [ From Monitor] Respiratory 17 25 H 23 Rate Respiratory Rate [Anterior Bilateral Throughout] Respiratory Rate [Anterior Bilateral] Blood Pressure 155/71 160/76 160/76 O2 Sat by Pulse 94 91 95 Oximetry O2 Sat by Pulse Oximetry [ Assessment] 09/16/18 09/16/18 09/17/18 23:30 23:46 00:00 Temperature 99.7 F H Pulse Rate 92 H 91 H 86 Pulse Rate [ Anterior Bilateral Throughout] Pulse Rate [ Anterior Bilateral] Pulse Rate [ 110 H From Monitor] Respiratory 23 16 24 Rate Respiratory Rate [Anterior Bilateral Throughout] Respiratory Rate [Anterior Bilateral] Blood Pressure 166/77 166/77 166/77 O2 Sat by Pulse 89 94 95 Oximetry O2 Sat by Pulse Oximetry [ Assessment] 09/17/18 09/17/18 09/17/18 00:15 00:16 00:30 Temperature Pulse Rate 87 90 87 Pulse Rate [ Anterior Bilateral Throughout] Pulse Rate [ Anterior Bilateral] Pulse Rate [ From Monitor] Respiratory 18 27 H Rate Respiratory Rate [Anterior Bilateral Throughout] Respiratory Rate [Anterior Bilateral] Blood Pressure 174/81 174/81 166/81 O2 Sat by Pulse 94 94 92 Oximetry O2 Sat by Pulse 93 Oximetry [ Assessment] 09/17/18 09/17/18 09/17/18 00:45 01:00 01:15 Temperature Pulse Rate 87 93 H 87 Pulse Rate [ Anterior Bilateral Throughout] Pulse Rate [ Anterior Bilateral] Pulse Rate [ From Monitor] Respiratory 21 17 24 Rate Respiratory Rate [Anterior Bilateral Throughout] Respiratory Rate [Anterior Bilateral] Blood Pressure 166/81 167/82 167/82 O2 Sat by Pulse 95 94 94 Oximetry O2 Sat by Pulse Oximetry [ Assessment] 09/17/18 09/17/18 09/17/18 01:30 01:46 02:00 Temperature Pulse Rate 84 81 75 Pulse Rate [ Anterior Bilateral Throughout] Pulse Rate [ Anterior Bilateral] Pulse Rate [ 86 From Monitor] Respiratory 19 17 20 Rate Respiratory Rate [Anterior Bilateral Throughout] Respiratory Rate [Anterior Bilateral] Blood Pressure 162/72 162/72 152/66 O2 Sat by Pulse 90 94 94 Oximetry O2 Sat by Pulse Oximetry [ Assessment] 09/17/18 09/17/18 09/17/18 02:16 02:22 02:30 Temperature Pulse Rate 78 72 Pulse Rate [ 73 81 Anterior Bilateral Throughout] Pulse Rate [ Anterior Bilateral] Pulse Rate [ From Monitor] Respiratory 21 15 Rate Respiratory 23 24 Rate [Anterior Bilateral Throughout] Respiratory Rate [Anterior Bilateral] Blood Pressure 152/66 155/66 O2 Sat by Pulse 97 97 Oximetry O2 Sat by Pulse Oximetry [ Assessment] 09/17/18 09/17/18 09/17/18 02:46 03:00 03:16 Temperature Pulse Rate 78 82 81 Pulse Rate [ Anterior Bilateral Throughout] Pulse Rate [ Anterior Bilateral] Pulse Rate [ From Monitor] Respiratory 24 17 22 Rate Respiratory Rate [Anterior Bilateral Throughout] Respiratory Rate [Anterior Bilateral] Blood Pressure 155/66 151/68 151/68 O2 Sat by Pulse 97 93 95 Oximetry O2 Sat by Pulse Oximetry [ Assessment] 09/17/18 09/17/18 09/17/18 03:30 03:46 04:00 Temperature 99.6 F Pulse Rate 82 79 76 Pulse Rate [ Anterior Bilateral Throughout] Pulse Rate [ Anterior Bilateral] Pulse Rate [ 90 From Monitor] Respiratory 23 19 19 Rate Respiratory Rate [Anterior Bilateral Throughout] Respiratory Rate [Anterior Bilateral] Blood Pressure 152/74 152/74 150/68 O2 Sat by Pulse 93 95 95 Oximetry O2 Sat by Pulse Oximetry [ Assessment] 09/17/18 09/17/18 09/17/18 04:16 04:22 04:30 Temperature Pulse Rate 81 78 77 Pulse Rate [ Anterior Bilateral Throughout] Pulse Rate [ Anterior Bilateral] Pulse Rate [ From Monitor] Respiratory 16 19 Rate Respiratory Rate [Anterior Bilateral Throughout] Respiratory Rate [Anterior Bilateral] Blood Pressure 150/68 150/68 156/76 O2 Sat by Pulse 91 94 93 Oximetry O2 Sat by Pulse Oximetry [ Assessment] 09/17/18 09/17/18 09/17/18 04:46 05:00 05:16 Temperature Pulse Rate 76 77 76 Pulse Rate [ Anterior Bilateral Throughout] Pulse Rate [ Anterior Bilateral] Pulse Rate [ From Monitor] Respiratory 19 26 H 20 Rate Respiratory Rate [Anterior Bilateral Throughout] Respiratory Rate [Anterior Bilateral] Blood Pressure 156/76 152/73 152/73 O2 Sat by Pulse 95 92 94 Oximetry O2 Sat by Pulse Oximetry [ Assessment] 09/17/18 09/17/18 09/17/18 05:30 05:46 06:00 Temperature Pulse Rate 75 67 81 Pulse Rate [ Anterior Bilateral Throughout] Pulse Rate [ Anterior Bilateral] Pulse Rate [ From Monitor] Respiratory 22 19 26 H Rate Respiratory Rate [Anterior Bilateral Throughout] Respiratory Rate [Anterior Bilateral] Blood Pressure 153/69 153/69 151/74 O2 Sat by Pulse 92 95 94 Oximetry O2 Sat by Pulse Oximetry [ Assessment] 09/17/18 09/17/18 09/17/18 06:16 06:30 06:46 Temperature Pulse Rate 75 76 75 Pulse Rate [ Anterior Bilateral Throughout] Pulse Rate [ Anterior Bilateral] Pulse Rate [ From Monitor] Respiratory 24 22 16 Rate Respiratory Rate [Anterior Bilateral Throughout] Respiratory Rate [Anterior Bilateral] Blood Pressure 151/74 151/74 151/74 O2 Sat by Pulse 95 92 95 Oximetry O2 Sat by Pulse Oximetry [ Assessment] 09/17/18 09/17/18 09/17/18 06:59 07:00 07:27 Temperature Pulse Rate 75 75 81 Pulse Rate [ Anterior Bilateral Throughout] Pulse Rate [ Anterior Bilateral] Pulse Rate [ From Monitor] Respiratory 13 27 H Rate Respiratory Rate [Anterior Bilateral Throughout] Respiratory Rate [Anterior Bilateral] Blood Pressure 155/71 148/59 148/59 O2 Sat by Pulse 94 Oximetry O2 Sat by Pulse Oximetry [ Assessment] 09/17/18 09/17/18 09/17/18 07:32 07:36 07:44 Temperature Pulse Rate Pulse Rate [ Anterior Bilateral Throughout] Pulse Rate [ 73 75 Anterior Bilateral] Pulse Rate [ From Monitor] Respiratory Rate Respiratory Rate [Anterior Bilateral Throughout] Respiratory 27 H 27 H Rate [Anterior Bilateral] Blood Pressure O2 Sat by Pulse Oximetry O2 Sat by Pulse 94 Oximetry [ Assessment] 09/17/18 08:00 Temperature 99.1 F Pulse Rate Pulse Rate [ Anterior Bilateral Throughout] Pulse Rate [ Anterior Bilateral] Pulse Rate [ From Monitor] Respiratory Rate Respiratory Rate [Anterior Bilateral Throughout] Respiratory Rate [Anterior Bilateral] Blood Pressure O2 Sat by Pulse Oximetry O2 Sat by Pulse Oximetry [ Assessment] - Labs CBC & Chem 7: 09/18/18 04:20 09/18/18 04:20 Labs: Abnormal lab results 09/16/18 09/16/18 09/16/18 Range/Units 11:30 11:30 23:07 RBC 2.77 L (3.65-5.03) M/mm3 Hgb 8.5 L (10.1-14.3) gm/dl Hct 25.6 L (30.3-42.9) % RDW 17.9 H (13.2-15.2) % POC ABG pH (7.35-7.45) POC ABG pO2 (80-105) Potassium 3.2 L (3.6-5.0) mmol/L Chloride 96.6 L (98-107) mmol/L Carbon Dioxide 34 H (22-30) mmol/L Glucose 128 H (65-100) mg/dL POC Glucose 147 H (70-105) 09/17/18 09/17/18 Range/Units 04:22 05:50 RBC (3.65-5.03) M/mm3 Hgb (10.1-14.3) gm/dl Hct (30.3-42.9) % RDW (13.2-15.2) % POC ABG pH 7.576 H (7.35-7.45) POC ABG pO2 58 L (80-105) Potassium (3.6-5.0) mmol/L Chloride (98-107) mmol/L Carbon Dioxide (22-30) mmol/L Glucose (65-100) mg/dL POC Glucose 138 H (70-105)
--- NOTE | 2018-09-17 11:22 | Hem/Onc Progress Note ---
Assessment and Plan #. Bilateral posterior tibial and peroneal vein deep venous thrombosis, left leg edema. Arixtra was being used. #. h/o Thrombocytopenia. The patient was on heparin-based treatment. Later fondaparinux. HIT negative, plt now better #. Anemia. At admission, hemoglobin was normal. The patient received blood transfusion. deficiency workup low iron - Ferritin - b12 - folate normal . There may be a bleeding component. s/p Iv iron trial #. Pulmonary embolism study is negative. #. h/o Camryn infection. #. Chronic obstructive pulmonary disease. #. History of renal failure. Nephrology following. #. Respiratory failure, on ventilator. History of cardiomyopathy. Trach done PEG pending was Off arixtra for procedure of trach candidate for IVC filter eval as pt has been anemic needing transfusion 09/17 - peg tube - planned for wednesday - as per RN emanuel+ - Patient Problems (1) Thrombocytopenia Current Visit: Yes Status: Acute (2) DVT (deep venous thrombosis) Current Visit: Yes Status: Acute (3) Anemia Current Visit: Yes Status: Acute Subjective Date of service: 09/17/18 Principal diagnosis: anemia - dvt Interval history: due peg wednesday Objective - Constitutional Vitals: Last Vital Signs Temp 99.1 F 09/17/18 08:00 Pulse 85 09/17/18 10:15 Resp 26 H 09/17/18 10:15 BP 148/59 09/17/18 07:27 Pulse Ox 94 09/17/18 10:15 General appearance: no acute distress, other (trach) - EENT Eyes: EOM intact ENT: other - Respiratory Respiratory effort: Positive: normal Respiratory: bilateral: diminished - Cardiovascular Heart Sounds: Present: S1 & S2 Extremities: No edema - Gastrointestinal General gastrointestinal: Present: soft Rectal Exam: deferred - Genitourinary Female genitourinary: Present: deferred - Integumentary Integumentary: warm - Musculoskeletal Musculoskeletal: generalized weakness - Labs Lab Results: Laboratory Results - last 24 hr 09/16/18 09/16/18 09/16/18 11:30 11:30 23:07 WBC 5.6 RBC 2.77 L Hgb 8.5 L Hct 25.6 L MCV 93 MCH 31 MCHC 33 RDW 17.9 H Plt Count 175 POC ABG pH POC ABG pCO2 POC ABG pO2 POC ABG HCO3 POC ABG Total CO2 POC ABG O2 Sat POC ABG Base Excess FiO2 Sodium 141 Potassium 3.2 L Chloride 96.6 L Carbon Dioxide 34 H Anion Gap 14 BUN 16 Creatinine 0.8 Estimated GFR > 60 BUN/Creatinine Ratio 20 Glucose 128 H POC Glucose 147 H Calcium 8.5 09/17/18 09/17/18 04:22 05:50 WBC RBC Hgb Hct MCV MCH MCHC RDW Plt Count POC ABG pH 7.576 H POC ABG pCO2 37.1 POC ABG pO2 58 L POC ABG HCO3 34.4 POC ABG Total CO2 36 POC ABG O2 Sat 93 POC ABG Base Excess 12 FiO2 45 Sodium Potassium Chloride Carbon Dioxide Anion Gap BUN Creatinine Estimated GFR BUN/Creatinine Ratio Glucose POC Glucose 138 H Calcium Medications & Allergies - Medications Allergies/Adverse Reactions: Allergies No Known Allergies Allergy (Unverified 08/15/18 16:49) Home Medications: Home Medications Medication Instructions Recorded Confirmed Last Taken Type Carvedilol 6.25 mg PO BID 08/15/18 08/15/18 Unknown History DULoxetine 60 mg PO QDAY 08/15/18 08/15/18 Unknown History Gabapentin 600 mg PO Q6HR PRN 08/15/18 08/15/18 Unknown History Methylphenidate 5 mg PO TID 08/15/18 08/15/18 Unknown History Morphabond ER 60 mg PO Q12HR 08/15/18 08/15/18 Unknown History Pravastatin Sodium 10 mg PO QDAY 08/15/18 08/15/18 Unknown History Tizanidine HCl 4 mg PO Q12HR 08/15/18 08/15/18 Unknown History oxyCODONE /ACETAMINOPHEN 7.5 - 325 mg PO Q8HR 08/15/18 08/15/18 Unknown History ALBUTEROL Inhaler(NF) 90 mcg IH TID 08/29/18 08/29/18 Unknown History Omeprazole-Bicarb 40-1,100 Cap 40 mg PO DAILY 08/29/18 08/29/18 Unknown History Active Medications: Generic Name Dose Route Start Last Admin Trade Name Freq PRN Reason Stop Dose Admin Acetaminophen 650 mg 08/15/18 22:12 09/14/18 03:55 Tylenol PO 650 mg Q4H PRN Administration Pain MILD(1-3)/Fever >100.5/MONDRAGON Albuterol 2.5 mg 08/17/18 17:00 Proventil IH Q3HRT PRN Shortness Of Breath Albuterol/Ipratropium 1 ampul 08/20/18 14:00 09/17/18 07:36 Duoneb *Not For Prn Use* IH Not Given Q6HRT LAMAR Lipase/Protease/Amylase 1 each 09/17/18 09:06 Alis Elizabeth 10,500 Unit FEEDTUBE PRN PRN For Clogged Feeding Tube Arformoterol Tartrate 15 mcg 08/18/18 20:00 09/17/18 07:35 Brovana Nebu IH 15 mcg Q12HRT LAMAR Administration Budesonide 0.5 mg 08/18/18 20:00 09/17/18 07:35 Pulmicort IH 0.5 mg Q12HRT LAMAR Administration Carvedilol 3.125 mg 08/26/18 15:19 09/16/18 21:32 Coreg PO 3.125 mg BID LAMAR Administration Famotidine 20 mg 09/05/18 10:00 09/16/18 21:34 Pepcid PO 20 mg BID LAMAR Administration Fondaparinux 7.5 mg 09/07/18 10:00 09/16/18 09:58 Arixtra SUB-Q 7.5 mg DAILY LAMAR Administration Furosemide 20 mg 09/13/18 11:00 09/16/18 09:59 Lasix PO 20 mg QAM LAMAR Administration Hydralazine HCl 10 mg 08/19/18 13:59 09/10/18 19:32 Apresoline IV 10 mg Q3H PRN Administration Hydralazine HCl 25 mg 09/01/18 14:00 09/17/18 06:59 Apresoline PO 25 mg Q8HR LAMAR Administration Hydromorphone HCl 1 mg 09/06/18 10:38 09/17/18 01:39 Dilaudid IV 1 mg Q4H PRN Administration Pain , Severe (7-10) Hydromorphone HCl 2 mg 09/06/18 12:00 09/17/18 07:00 Dilaudid PO 2 mg Q6HR LAMAR Administration Hydrophilic Ointment 1 applic 08/15/18 21:55 09/01/18 09:07 Vaseline Lip Therapy TP 1 applic Q2HR PRN Administration Dry Lips Fentanyl Citrate 2,000 mcg in 100 mls @ 4.765 mls/hr 09/02/18 11:00 09/16/18 07:40 Fentanyl Drip Premix IV Infused TITR LAMAR Titration Protocol 1 MCG/KG/HR Piperacillin Sod/Tazobactam Sod 4.5 gm in 100 mls @ 200 mls/hr 09/14/18 13:00 09/17/18 07:01 Zosyn/Ns 4.5gm/100ml IV 200 mls/hr Q6HR LAMAR Administration Protocol Insulin Human Lispro 0 unit 09/04/18 18:00 09/17/18 06:36 Humalog SUB-Q Not Given Q6HR [facility] Protocol Metoclopramide HCl 5 mg 08/15/18 22:50 09/17/18 10:48 Reglan IV 5 mg Q6H PRN Administration Nausea And Vomiting Midazolam HCl 1 mg 09/07/18 09:23 09/12/18 17:34 Versed IV 1 mg Q4H PRN Administration AGITATION Ondansetron HCl 4 mg 08/15/18 22:12 08/31/18 17:52 Zofran IV 4 mg Q8H PRN Administration Nausea And Vomiting Quetiapine Fumarate 200 mg 09/04/18 15:00 09/16/18 21:34 Seroquel PO 200 mg BID LAMAR Administration Senna/Docusate Sodium 2 tab 09/06/18 11:00 09/16/18 21:33 Senokot S PO 2 tab BID LAMAR Administration Simple Syrup 15 ml 09/17/18 09:06 Simple Syrup FEEDTUBE PRN PRN Hypoglycemia Simple Syrup 30 ml 09/17/18 09:06 Simple Syrup FEEDTUBE PRN PRN Hypoglycemia Sodium Bicarbonate 325 mg 09/17/18 09:06 Sodium Bicarbonate FEEDTUBE PRN PRN For Clogged Feeding Tube Sodium Chloride 10 ml 08/15/18 22:12 09/12/18 22:05 Sodium Chloride Flush Syringe 10 Ml IV 10 ml PRN PRN Administration LINE FLUSH
[2018-09-17 11:37] LABS: BUN/Creatinine Ratio 21; Blood Urea Nitrogen 15 mg/dL (7-17); Calcium 8.4 mg/dL (8.4-10.2); Hemolysis Index 2
[2018-09-17] MEDS: ARIXTRA SUB-Q SCH (11:37)
[2018-09-17] MEDS: LASIX PO SCH (11:38)
[2018-09-17] MEDS: PEPCID PO SCH ×2 (11:38→21:50)
[2018-09-17] MEDS: SENOKOT S PO SCH ×2 (11:38→21:50)
[2018-09-17] MEDS: COREG PO SCH ×2 (11:39→21:50)
[2018-09-17] MEDS ORDERED: K-DUR PO ONE ×2 (13:00→17:00)
[2018-09-17 13:35] LABS: BUN/Creatinine Ratio 19; Blood Urea Nitrogen 15 mg/dL (7-17); Calcium 8.7 mg/dL (8.4-10.2); Hemolysis Index 4
--- NOTE | 2018-09-17 15:42 | XRay Report ---
PROCEDURE: XR CHEST 1V AP TECHNIQUE: Chest portable radiograph single view. HISTORY: pulmonary edema COMPARISONS: 09/14/2018 . FINDINGS: Stable tracheostomy and cervical spine surgical hardware. A right venous catheter remains in place with distal tip near the cavoatrial junction region. Images demographics obscures the right CP angle. No pneumothorax. Moderate nonspecific left lung base opacity remains relatively unchanged. Moderate enlargement of the cardiac silhouette size remains. Again noted is prominent vascular and/or interstitial markings in both lungs with tendency toward sli ght confluence in the left midlung. IMPRESSION: Relatively unchanged chest Stable nonspecific left lung base opacity may be moderate pleural effusion with adjacent atelectasis. Consider also left lower lobe pneumonia Persistent prominence of interstitial and/or vascular markings most compatible with history of pulmon william edema. Differential includes interstitial pneumonitis Persistent cardiomegaly This document is electronically signed by Sunday Gomez MD., September 17 2018 03:40:32 PM ET
[2018-09-17] MEDS: KCL 10MEQ/100ML 10 MEQ/100 ML BAG IV SCH ×4 (16:40→18:55)
[2018-09-17] MEDS: SODIUM CHLORIDE FLUSH SYRINGE 10 ML IV PRN (21:51)
[2018-09-18] MEDS: DILAUDID PO SCH ×4 (00:09→20:01)
[2018-09-18] MEDS: ZOSYN/NS 4.5GM/100ML 4.5 GM/100 ML VIAL IV SCH ×2 (00:10→06:17)
[2018-09-18] MEDS: HumaLOG SUB-Q SCH ×4 (00:16→18:30)
[2018-09-18] MEDS: TYLENOL PO PRN (00:26)
[2018-09-18] MEDS: DUONEB *Not for PRN Use IH SCH ×4 (02:10→20:21)
[2018-09-18 04:45] LABS: Basophils % (Auto) 0.4 % (0.0-1.8); Hematocrit 27.2 % (30.3-42.9); Lymphocytes % (Auto) 17.3 % (13.4-35.0); Mean Corpuscular HGB Conc 33 % (30-34); Mean Corpuscular Volume 93 fl (79-97); Monocytes # (Auto) 0.7 K/mm3 (0.0-0.8); Monocytes % (Auto) 12.1 % (0.0-7.3); Platelet Count 234 K/mm3 (140-440); Red Blood Count 2.94 M/mm3 (3.65-5.03); Red Cell Distribution Width 17.7 % (13.2-15.2)
[2018-09-18 05:25] LABS: BUN/Creatinine Ratio 20; Blood Urea Nitrogen 16 mg/dL (7-17); Calcium 8.8 mg/dL (8.4-10.2); Hemolysis Index 3
[2018-09-18] MEDS: APRESOLINE PO SCH ×3 (06:16→22:20)
[2018-09-18] MEDS: BROVANA NEBU IH SCH ×2 (08:36→20:21)
[2018-09-18] MEDS: PULMICORT IH SCH ×2 (08:36→20:21)
[2018-09-18] MEDS: ARIXTRA SUB-Q SCH (10:53)
[2018-09-18] MEDS: LASIX PO SCH (10:53)
[2018-09-18] MEDS: COREG PO SCH ×2 (10:53→22:20)
[2018-09-18] MEDS: PEPCID PO SCH ×2 (10:54→22:20)
[2018-09-18] MEDS: SENOKOT S PO SCH ×2 (10:54→22:20)
--- NOTE | 2018-09-18 11:08 | Progress Note ---
Assessment and Plan /Hypokalemia, replete, check Mg level /Acute hypoxic hypercapnic respiratory failure; extubated 08/29/18 Re Intubated 09/02/18, vent dependent s/p trach on 09/14/18 Status post bronchoscopy, BAL negative cont nebulizers, pulmonary following /Dysphagia - cannot be placed PEG as could not be transilluminated stomach on EGD - Now planned to get PEG done by IR on Wednesday, cont TF with dobhoff /Thrombocytopenia: Platelet count is Stable Lovenox changed to Arixtra /Anemia: s/p transfusion[4 PRBC] Stool for occult blood x 2 negative, hematology following will transfuse additional unit -Recent EGD at [facility] 08/08/2018 revealing irregular Z line, gastritis and small hiatal hernia - Recent colonoscopy at [facility] 08/08/2018 revealing sigmoid polyp, transverse colon polyps, inflamed hemorrhoids and diverticulosis /Febrile illness; resolved, likely from PNA/sepsis /Hypomagnesemia; Hypernatremia; resolved, /Bileral lower extremity DVT; anticoagulation with arixtra CTA chest negative for PE /Sepsis; due to aspiration pneumonia ; s/p micafungin, meropenem and Vanco per ID Monitor off antibiotics /Hypertension; continue current antihypertensives /Severe malnutrition/hypoalbuminemia; Dietitian following, On TF /Acute kidney injury; probably secondary to ATN, Resolved, /Acute systolic congestive heart failure; EF 25-30%, Cardio following, monitor ins/os Previous echo 03/30/2016 at [facility] revealed normal LVEF Previous stress MPI 03/29/2016 at [facility] revealed no ischemia /Elevated Transaminases; resolved /-DVT prophylaxis; on full dose arixtra, on hold now for possible trach/peg tomorrow Consults and recommendations noted and appreciated Plan of care reviewed with the patient's nurse The high probability of a clinically significant, sudden or life threatening deterioration of the [respiratory, cardiology, ID, renal and metabolic] system(s) required my full and direct attention, intervention and personal management. The aggregate critical care time was [32] minutes. This time is in addition to time spent performing reported procedures but includes the following: [x] Data Review and interpretation [x] Patient assessment and monitoring of vital signs [x] Documentation [x] Medication orders and management Plan of care is reviewed with the patient's nurse Brief History: 68-year-old female patient with history of COPD, arthritis s/p C-spine and lumbar spine surgery, Chronic pain syndrome who was found unconscious in her feces and vomitus, patients family was in [place] for a golf tournament. Patient was brought to the emergency room noted to be severely hypoxic and tachypneic, promptly intubated placed on ventilatory support and admitted to ICU patient was also noted to have possible aspiration pneumonia, completed treatment recommended by ID .currently monitoring of antibiotics . patient also had acute gastroenteritis acute kidney injury nonspecific elevation of troponins as well as septic shock evaluated by multiple specialties successfully weaned and extubated on 08/29/2018 however patient again went into acute respiratory failure requiring reintubation on 09/02/2018, Since then patient is vent dependent, planned for trach and PEG and placement. She is also being treated for acute b/l DVT diagnosed following admission while she was on DVT Px. s/p 4units of PRBC transfusion for anemia, no acute source of active bleeding so far. Hospitalist Physical General appearance: Present: no acute distress, well-nourished, obese, other (on vent with trach) - EENT Eyes: Present: PERRL, EOM intact - Neck Neck: Present: supple, trach on place - Respiratory Respiratory effort: normal Respiratory: bilateral: diminished, rhonchi, negative: rales, wheezing - Cardiovascular Rhythm: regular Heart Sounds: Present: S1 & S2 - Extremities Extremities: no ischemia, No edema - Abdominal General gastrointestinal: soft, non-tender, non-distended, normal bowel sounds - Integumentary Integumentary: Present: clear, warm - Psychiatric Psychiatric: cooperative, other (on vent) - Neurologic Neurologic: move extremities unpurposefull Subjective Date of service: 09/18/18 Principal diagnosis: Acute hypoxemic hypercapnic Resp failure; AE-COPD; Acute kidney injury Interval history: Patient seen and examined medical records reviewed Patient on ventilator support with trach Alert and awake not in acute distress Vital signs noted, no acute issue overnight patient's family at bedside updated Objective - Constitutional Vitals: Vital Signs - 12hr 09/17/18 09/17/18 09/17/18 23:16 23:30 23:33 Temperature Pulse Rate 78 80 70 Pulse Rate [ Anterior Bilateral] Pulse Rate [ From Monitor] Respiratory 21 21 Rate Respiratory Rate [Anterior Bilateral] Blood Pressure 146/74 145/67 145/67 O2 Sat by Pulse 96 96 96 Oximetry O2 Sat by Pulse 96 Oximetry [ Assessment] 09/17/18 09/18/18 09/18/18 23:46 00:00 00:16 Temperature 102.6 F H Pulse Rate 79 80 76 Pulse Rate [ Anterior Bilateral] Pulse Rate [ 80 From Monitor] Respiratory 18 14 19 Rate Respiratory Rate [Anterior Bilateral] Blood Pressure 145/67 139/61 139/61 O2 Sat by Pulse 94 95 96 Oximetry O2 Sat by Pulse Oximetry [ Assessment] 09/18/18 09/18/18 09/18/18 00:30 00:46 01:00 Temperature Pulse Rate 77 74 73 Pulse Rate [ Anterior Bilateral] Pulse Rate [ From Monitor] Respiratory 18 24 15 Rate Respiratory Rate [Anterior Bilateral] Blood Pressure 148/61 148/61 146/63 O2 Sat by Pulse 94 95 96 Oximetry O2 Sat by Pulse Oximetry [ Assessment] 09/18/18 09/18/18 09/18/18 01:16 01:30 01:46 Temperature Pulse Rate 75 70 73 Pulse Rate [ Anterior Bilateral] Pulse Rate [ From Monitor] Respiratory 15 15 20 Rate Respiratory Rate [Anterior Bilateral] Blood Pressure 146/63 136/66 136/66 O2 Sat by Pulse 97 96 98 Oximetry O2 Sat by Pulse Oximetry [ Assessment] 09/18/18 09/18/18 09/18/18 02:00 02:10 02:16 Temperature Pulse Rate 70 69 Pulse Rate [ 70 Anterior Bilateral] Pulse Rate [ From Monitor] Respiratory 18 16 Rate Respiratory 25 H Rate [Anterior Bilateral] Blood Pressure 136/61 136/61 O2 Sat by Pulse 97 99 Oximetry O2 Sat by Pulse Oximetry [ Assessment] 09/18/18 09/18/18 09/18/18 02:25 02:30 02:46 Temperature Pulse Rate 71 69 Pulse Rate [ 76 Anterior Bilateral] Pulse Rate [ From Monitor] Respiratory 20 16 Rate Respiratory 25 H Rate [Anterior Bilateral] Blood Pressure 137/68 136/61 O2 Sat by Pulse 96 98 Oximetry O2 Sat by Pulse Oximetry [ Assessment] 09/18/18 09/18/18 09/18/18 03:00 03:16 03:30 Temperature Pulse Rate 69 68 70 Pulse Rate [ Anterior Bilateral] Pulse Rate [ From Monitor] Respiratory 21 15 16 Rate Respiratory Rate [Anterior Bilateral] Blood Pressure 144/64 137/68 O2 Sat by Pulse 96 96 96 Oximetry O2 Sat by Pulse Oximetry [ Assessment] 09/18/18 09/18/18 09/18/18 03:45 04:00 04:15 Temperature 100 F H Pulse Rate 70 82 74 Pulse Rate [ Anterior Bilateral] Pulse Rate [ 82 From Monitor] Respiratory 13 19 18 Rate Respiratory Rate [Anterior Bilateral] Blood Pressure 144/64 143/52 143/52 O2 Sat by Pulse 96 96 97 Oximetry O2 Sat by Pulse Oximetry [ Assessment] 09/18/18 09/18/18 09/18/18 04:28 04:30 04:45 Temperature Pulse Rate 77 73 71 Pulse Rate [ Anterior Bilateral] Pulse Rate [ From Monitor] Respiratory 18 19 Rate Respiratory Rate [Anterior Bilateral] Blood Pressure 143/52 153/71 153/71 O2 Sat by Pulse 97 93 94 Oximetry O2 Sat by Pulse Oximetry [ Assessment] 09/18/18 09/18/18 09/18/18 05:01 05:15 05:30 Temperature Pulse Rate 77 74 88 Pulse Rate [ Anterior Bilateral] Pulse Rate [ From Monitor] Respiratory 18 25 H 18 Rate Respiratory Rate [Anterior Bilateral] Blood Pressure 145/65 153/71 136/75 O2 Sat by Pulse 93 94 92 Oximetry O2 Sat by Pulse Oximetry [ Assessment] 09/18/18 09/18/18 09/18/18 05:45 06:00 06:01 Temperature Pulse Rate 83 74 Pulse Rate [ Anterior Bilateral] Pulse Rate [ 75 From Monitor] Respiratory 19 14 20 Rate Respiratory Rate [Anterior Bilateral] Blood Pressure 136/75 129/66 O2 Sat by Pulse 94 94 94 Oximetry O2 Sat by Pulse Oximetry [ Assessment] 09/18/18 09/18/18 09/18/18 06:15 06:16 06:30 Temperature Pulse Rate 77 76 74 Pulse Rate [ Anterior Bilateral] Pulse Rate [ From Monitor] Respiratory 20 16 Rate Respiratory Rate [Anterior Bilateral] Blood Pressure 129/66 129/66 144/60 O2 Sat by Pulse 92 93 Oximetry O2 Sat by Pulse Oximetry [ Assessment] 09/18/18 09/18/18 09/18/18 06:45 07:01 07:15 Temperature Pulse Rate 71 79 74 Pulse Rate [ Anterior Bilateral] Pulse Rate [ From Monitor] Respiratory 25 H 18 22 Rate Respiratory Rate [Anterior Bilateral] Blood Pressure 144/60 141/70 141/70 O2 Sat by Pulse 95 93 95 Oximetry O2 Sat by Pulse Oximetry [ Assessment] 09/18/18 09/18/18 09/18/18 07:30 07:45 08:00 Temperature Pulse Rate 76 80 74 Pulse Rate [ Anterior Bilateral] Pulse Rate [ 75 From Monitor] Respiratory 16 26 H 24 Rate Respiratory Rate [Anterior Bilateral] Blood Pressure 146/62 146/62 144/63 O2 Sat by Pulse 93 93 94 Oximetry O2 Sat by Pulse Oximetry [ Assessment] 09/18/18 09/18/18 09/18/18 08:15 08:24 08:30 Temperature Pulse Rate 79 72 70 Pulse Rate [ Anterior Bilateral] Pulse Rate [ From Monitor] Respiratory 23 26 H 21 Rate Respiratory Rate [Anterior Bilateral] Blood Pressure 144/63 144/63 133/58 O2 Sat by Pulse 96 94 Oximetry O2 Sat by Pulse Oximetry [ Assessment] 09/18/18 09/18/18 09/18/18 08:33 08:36 08:45 Temperature Pulse Rate 73 Pulse Rate [ 73 Anterior Bilateral] Pulse Rate [ From Monitor] Respiratory 19 Rate Respiratory 24 Rate [Anterior Bilateral] Blood Pressure 133/58 O2 Sat by Pulse 100 Oximetry O2 Sat by Pulse 100 Oximetry [ Assessment] 09/18/18 09/18/18 09/18/18 08:51 09:01 09:15 Temperature Pulse Rate 73 77 Pulse Rate [ 72 Anterior Bilateral] Pulse Rate [ From Monitor] Respiratory 20 16 Rate Respiratory 24 Rate [Anterior Bilateral] Blood Pressure 138/63 138/63 O2 Sat by Pulse 100 94 Oximetry O2 Sat by Pulse Oximetry [ Assessment] 09/18/18 09/18/18 09/18/18 09:31 09:37 09:45 Temperature Pulse Rate 88 80 80 Pulse Rate [ Anterior Bilateral] Pulse Rate [ From Monitor] Respiratory 26 H 18 Rate Respiratory Rate [Anterior Bilateral] Blood Pressure 138/63 134/68 134/68 O2 Sat by Pulse 86 95 94 Oximetry O2 Sat by Pulse Oximetry [ Assessment] 09/18/18 09/18/18 09/18/18 10:01 10:15 10:31 Temperature Pulse Rate 70 72 80 Pulse Rate [ Anterior Bilateral] Pulse Rate [ From Monitor] Respiratory 14 22 18 Rate Respiratory Rate [Anterior Bilateral] Blood Pressure 148/67 148/67 153/66 O2 Sat by Pulse 94 97 97 Oximetry O2 Sat by Pulse Oximetry [ Assessment] 09/18/18 09/18/18 10:45 11:00 Temperature Pulse Rate 72 71 Pulse Rate [ Anterior Bilateral] Pulse Rate [ From Monitor] Respiratory 16 27 H Rate Respiratory Rate [Anterior Bilateral] Blood Pressure 153/66 164/98 O2 Sat by Pulse 96 94 Oximetry O2 Sat by Pulse Oximetry [ Assessment] - Labs CBC & Chem 7: 09/18/18 04:20 09/19/18 05:20 Labs: Abnormal lab results 09/17/18 09/17/18 09/17/18 Range/Units 10:15 14:59 17:51 RBC (3.65-5.03) M/mm3 Hgb (10.1-14.3) gm/dl Hct (30.3-42.9) % RDW (13.2-15.2) % Martin % (Auto) (0.0-7.3) % Lymph # (1.2-5.4) K/mm3 Seg Neutrophils % (40.0-70.0) % POC ABG pH (7.35-7.45) Potassium 2.6 L* (3.6-5.0) mmol/L Chloride 96.3 L (98-107) mmol/L Carbon Dioxide 33 H (22-30) mmol/L Glucose 151 H (65-100) mg/dL POC Glucose 151 H 149 H (70-105) 09/17/18 09/18/18 09/18/18 Range/Units Unknown 00:11 04:20 RBC 2.94 L (3.65-5.03) M/mm3 Hgb 9.0 L (10.1-14.3) gm/dl Hct 27.2 L (30.3-42.9) % RDW 17.7 H (13.2-15.2) % Martin % (Auto) 12.1 H (0.0-7.3) % Lymph # 1.0 L (1.2-5.4) K/mm3 Seg Neutrophils % 70.2 H (40.0-70.0) % POC ABG pH (7.35-7.45) Potassium 2.7 L* (3.6-5.0) mmol/L Chloride 97.5 L (98-107) mmol/L Carbon Dioxide 32 H (22-30) mmol/L Glucose 142 H (65-100) mg/dL POC Glucose 128 H (70-105) 04/21/19 04/21/19 04/21/19 Range/Units 04:20 04:28 06:19 RBC (3.65-5.03) M/mm3 Hgb (10.1-14.3) gm/dl Hct (30.3-42.9) % RDW (13.2-15.2) % Martin % (Auto) (0.0-7.3) % Lymph # (1.2-5.4) K/mm3 Seg Neutrophils % (40.0-70.0) % POC ABG pH 7.563 H (7.35-7.45) Potassium 3.0 L (3.6-5.0) mmol/L Chloride (98-107) mmol/L Carbon Dioxide 33 H (22-30) mmol/L Glucose 133 H (65-100) mg/dL POC Glucose 140 H (70-105)
--- NOTE | 2018-09-18 11:33 | Progress Note ---
Assessment and Plan Acute hypoxic-hypercapnic respiratory failure on MVS Acute COPD exacerbation DVT NSTEMI Acute encephalopathy (toxic-metabolic) Thrombocytopenia Hypokalemia Acute kidney injury h/o Chronic Narcotic Dependence Aspiration pneumonia/CAP Hypokalemia GNR in tracheal aspirate Hypernatremia - increased diuresis; changed lasix to 20 mg IV daily - also give diamox 250 mg IV daily X 3 days re: alkalosis - continue daily SAT's & SBT's - continue prn analgesia - Continue to Wean supplemental oxygen to keep O2 sats > 88-90% - follow clinically s/p AB's courses - continue accuchecks q6h and target glycemic control for BG 140 - 180 mg/dl acutely - continue seroquel and target sedatives for RASS 0 to -1 - CD4 count WNL - HIT assay negative but again developed thrombocytopenia with re-challenge so on Arixtra treatment dose for DVT - nephrology input appreciated - cardiology input appreciated - continue brovana & pulmicort re: COPD - continue lung protective strategies - Daily ABGs/CXR for now - VAP bundle addressed - continue to avoid benzodiazepines, use high dose fentanyl for agitation and analgesia - continue stress ulcer prophylaxis - continue VTE prophylaxis - continue enteral Nutrition as tolerated - VAP bundle addressed - Continue bronchodilators with pulmonary hygiene per RT - Maintenance of sleep -wake cycle - Mobility protocol for pressure ulcer prophylaxis as tolerated by hemodynamics - Influenza and pneumonia vaccination per protocol ..care plan discussed at length with at the bedside ... re-evaluate in am & prn PROGNOSIS :FAIR CONDITION: CRITICAL CODE STATUS: FULL CODE The high probability of a clinically significant, sudden or life-threatening deterioration of the [respiratory, neurology, renal] system(s) required my full and direct attention, intervention and personal management. The aggregate critical care time was [36] minutes without overlap. Time includes spent on; [x] Data Review and interpretation [x] Patient assessment and monitoring of vital signs [x] Documentation [x] Medication orders and management Subjective Date of service: 09/18/18 Principal diagnosis: Acute hypoxemic hypercapnic Resp failure; AE-COPD; Acute kidney injury Interval history: Patient is seen today for: Acute hypoxemic - hypercapnic respiratory failure on MVS; Acute COPD exacerbation; Acute encephalopathy (toxic-metabolic); Hypokalemia; Acute kidney injury Seen and examined at bedside; 24hour events reviewed; nursing and respiratory care staff consulted; no adverse overnight events reported to me; remains on MVS; tolerated < 2 hours of SBT today; no emesis or overt aspiration; remains off vasopressors; no N/V/F/C; in room; tolerating tube feeds Objective Vital Signs - 12hr 09/17/18 09/17/18 09/18/18 23:33 23:46 00:00 Temperature 102.6 F H Pulse Rate 70 79 80 Pulse Rate [ Anterior Bilateral] Pulse Rate [ 80 From Monitor] Respiratory 18 14 Rate Respiratory Rate [Anterior Bilateral] Blood Pressure 145/67 145/67 139/61 O2 Sat by Pulse 96 94 95 Oximetry O2 Sat by Pulse 96 Oximetry [ Assessment] 09/18/18 09/18/18 09/18/18 00:16 00:30 00:46 Temperature Pulse Rate 76 77 74 Pulse Rate [ Anterior Bilateral] Pulse Rate [ From Monitor] Respiratory 19 18 24 Rate Respiratory Rate [Anterior Bilateral] Blood Pressure 139/61 148/61 148/61 O2 Sat by Pulse 96 94 95 Oximetry O2 Sat by Pulse Oximetry [ Assessment] 09/18/18 09/18/18 09/18/18 01:00 01:16 01:30 Temperature Pulse Rate 73 75 70 Pulse Rate [ Anterior Bilateral] Pulse Rate [ From Monitor] Respiratory 15 15 15 Rate Respiratory Rate [Anterior Bilateral] Blood Pressure 146/63 146/63 136/66 O2 Sat by Pulse 96 97 96 Oximetry O2 Sat by Pulse Oximetry [ Assessment] 09/18/18 09/18/18 09/18/18 01:46 02:00 02:10 Temperature Pulse Rate 73 70 Pulse Rate [ 70 Anterior Bilateral] Pulse Rate [ From Monitor] Respiratory 20 18 Rate Respiratory 25 H Rate [Anterior Bilateral] Blood Pressure 136/66 136/61 O2 Sat by Pulse 98 97 Oximetry O2 Sat by Pulse Oximetry [ Assessment] 09/18/18 09/18/18 09/18/18 02:16 02:25 02:30 Temperature Pulse Rate 69 71 Pulse Rate [ 76 Anterior Bilateral] Pulse Rate [ From Monitor] Respiratory 16 20 Rate Respiratory 25 H Rate [Anterior Bilateral] Blood Pressure 136/61 137/68 O2 Sat by Pulse 99 96 Oximetry O2 Sat by Pulse Oximetry [ Assessment] 09/18/18 09/18/18 09/18/18 02:46 03:00 03:16 Temperature Pulse Rate 69 69 68 Pulse Rate [ Anterior Bilateral] Pulse Rate [ From Monitor] Respiratory 16 21 15 Rate Respiratory Rate [Anterior Bilateral] Blood Pressure 136/61 144/64 137/68 O2 Sat by Pulse 98 96 96 Oximetry O2 Sat by Pulse Oximetry [ Assessment] 09/18/18 09/18/18 09/18/18 03:30 03:45 04:00 Temperature 100 F H Pulse Rate 70 70 82 Pulse Rate [ Anterior Bilateral] Pulse Rate [ 82 From Monitor] Respiratory 16 13 19 Rate Respiratory Rate [Anterior Bilateral] Blood Pressure 144/64 143/52 O2 Sat by Pulse 96 96 96 Oximetry O2 Sat by Pulse Oximetry [ Assessment] 09/18/18 09/18/18 09/18/18 04:15 04:28 04:30 Temperature Pulse Rate 74 77 73 Pulse Rate [ Anterior Bilateral] Pulse Rate [ From Monitor] Respiratory 18 18 Rate Respiratory Rate [Anterior Bilateral] Blood Pressure 143/52 143/52 153/71 O2 Sat by Pulse 97 97 93 Oximetry O2 Sat by Pulse Oximetry [ Assessment] 09/18/18 09/18/18 09/18/18 04:45 05:01 05:15 Temperature Pulse Rate 71 77 74 Pulse Rate [ Anterior Bilateral] Pulse Rate [ From Monitor] Respiratory 19 18 25 H Rate Respiratory Rate [Anterior Bilateral] Blood Pressure 153/71 145/65 153/71 O2 Sat by Pulse 94 93 94 Oximetry O2 Sat by Pulse Oximetry [ Assessment] 09/18/18 09/18/18 09/18/18 05:30 05:45 06:00 Temperature Pulse Rate 88 83 Pulse Rate [ Anterior Bilateral] Pulse Rate [ 75 From Monitor] Respiratory 18 19 14 Rate Respiratory Rate [Anterior Bilateral] Blood Pressure 136/75 136/75 O2 Sat by Pulse 92 94 94 Oximetry O2 Sat by Pulse Oximetry [ Assessment] 09/18/18 09/18/18 09/18/18 06:01 06:15 06:16 Temperature Pulse Rate 74 77 76 Pulse Rate [ Anterior Bilateral] Pulse Rate [ From Monitor] Respiratory 20 20 Rate Respiratory Rate [Anterior Bilateral] Blood Pressure 129/66 129/66 129/66 O2 Sat by Pulse 94 92 Oximetry O2 Sat by Pulse Oximetry [ Assessment] 09/18/18 09/18/18 09/18/18 06:30 06:45 07:01 Temperature Pulse Rate 74 71 79 Pulse Rate [ Anterior Bilateral] Pulse Rate [ From Monitor] Respiratory 16 25 H 18 Rate Respiratory Rate [Anterior Bilateral] Blood Pressure 144/60 144/60 141/70 O2 Sat by Pulse 93 95 93 Oximetry O2 Sat by Pulse Oximetry [ Assessment] 09/18/18 09/18/18 09/18/18 07:15 07:30 07:45 Temperature Pulse Rate 74 76 80 Pulse Rate [ Anterior Bilateral] Pulse Rate [ From Monitor] Respiratory 22 16 26 H Rate Respiratory Rate [Anterior Bilateral] Blood Pressure 141/70 146/62 146/62 O2 Sat by Pulse 95 93 93 Oximetry O2 Sat by Pulse Oximetry [ Assessment] 09/18/18 09/18/18 09/18/18 08:00 08:15 08:24 Temperature Pulse Rate 74 79 72 Pulse Rate [ Anterior Bilateral] Pulse Rate [ 75 From Monitor] Respiratory 24 23 26 H Rate Respiratory Rate [Anterior Bilateral] Blood Pressure 144/63 144/63 144/63 O2 Sat by Pulse 94 96 Oximetry O2 Sat by Pulse Oximetry [ Assessment] 09/18/18 09/18/18 09/18/18 08:30 08:33 08:36 Temperature Pulse Rate 70 Pulse Rate [ 73 Anterior Bilateral] Pulse Rate [ From Monitor] Respiratory 21 Rate Respiratory 24 Rate [Anterior Bilateral] Blood Pressure 133/58 O2 Sat by Pulse 94 Oximetry O2 Sat by Pulse 100 Oximetry [ Assessment] 09/18/18 09/18/18 09/18/18 08:45 08:51 09:01 Temperature Pulse Rate 73 73 Pulse Rate [ 72 Anterior Bilateral] Pulse Rate [ From Monitor] Respiratory 19 20 Rate Respiratory 24 Rate [Anterior Bilateral] Blood Pressure 133/58 138/63 O2 Sat by Pulse 100 100 Oximetry O2 Sat by Pulse Oximetry [ Assessment] 09/18/18 09/18/18 09/18/18 09:15 09:31 09:37 Temperature Pulse Rate 77 88 80 Pulse Rate [ Anterior Bilateral] Pulse Rate [ From Monitor] Respiratory 16 26 H Rate Respiratory Rate [Anterior Bilateral] Blood Pressure 138/63 138/63 134/68 O2 Sat by Pulse 94 86 95 Oximetry O2 Sat by Pulse Oximetry [ Assessment] 09/18/18 09/18/18 09/18/18 09:45 10:01 10:15 Temperature Pulse Rate 80 70 72 Pulse Rate [ Anterior Bilateral] Pulse Rate [ From Monitor] Respiratory 18 14 22 Rate Respiratory Rate [Anterior Bilateral] Blood Pressure 134/68 148/67 148/67 O2 Sat by Pulse 94 94 97 Oximetry O2 Sat by Pulse Oximetry [ Assessment] 09/18/18 09/18/18 09/18/18 10:31 10:45 11:00 Temperature Pulse Rate 80 72 71 Pulse Rate [ Anterior Bilateral] Pulse Rate [ From Monitor] Respiratory 18 16 27 H Rate Respiratory Rate [Anterior Bilateral] Blood Pressure 153/66 153/66 164/98 O2 Sat by Pulse 97 96 94 Oximetry O2 Sat by Pulse Oximetry [ Assessment] Constitutional: appears uncomfortable, other (elderly looking CF, normocephalic and atraumatic) Eyes: non-icteric ENT: oropharynx moist, other (s/p tracheostomy) Neck: supple, no lymphadenopathy, no JVD, other (no thyromegaly) Effort: mildly labored Ascultation: Bilateral: diminished breath sounds, rales Percussion: Bilateral: not dull Cardiovascular: regular rate and rhythm Gastrointestinal: normoactive bowel sounds, soft, non-tender, non-distended Integumentary: normal Extremities: no cyanosis, no ischemia or petechiae, edema (Left lower extremity) Neurologic: non-focal exam (grossly), pupils equal and round, CN II-XII normal, motor strength normal and Psychiatric: other (unable to assess) CBC and BMP: 09/18/18 04:20 09/18/18 04:20 ABG, PT/INR, D-dimer: ABG POC ABG pH 7.563 (7.35-7.45) H 09/18/18 04:28 POC ABG pCO2 38.8 (35-45) 09/18/18 04:28 POC ABG pO2 86 (80-105) 09/18/18 04:28 POC ABG HCO3 35.0 (22-26 mml/L) 09/18/18 04:28 POC ABG Total CO2 36 (23-27mmol/L) 09/18/18 04:28 POC ABG O2 Sat 98 09/18/18 04:28 PT/INR, D-dimer PT 14.2 Sec. (12.2-14.9) 09/14/18 04:55 INR 1.04 (0.87-1.13) 09/14/18 04:55 D-Dimer 2768.33 ng/mlDDU (0-234) H 08/15/18 18:31 Abnormal lab findings: Abnormal Labs 08/15/18 08/15/18 08/15/18 17:52 17:52 17:52 WBC 12.7 H RBC 3.25 L Hgb Hct RDW Plt Count Lymph % (Auto) [place] % (Auto) Lymph # [place] # Seg Neutrophils % Seg Neuts % (Manual) Lymphocytes % (Manual) 6.0 L Nucleated RBC % Seg Neutrophils # Seg Neutrophils # Man Lymphocytes # (Manual) 0.8 L D-Dimer POC ABG pH POC ABG pCO2 POC ABG pO2 VBG pH Sodium Potassium 3.4 L Chloride 94.6 L Carbon Dioxide 17 L BUN 67 H Creatinine 3.5 H Glucose 131 H POC Glucose Hemoglobin A1c Lactic Acid 5.20 H* Calcium 7.6 L Phosphorus Magnesium Iron TIBC AST 887 H ALT 316 H Troponin T C-Reactive Protein Total Protein Albumin 3.1 L Triglycerides LDL Cholesterol Direct HDL Cholesterol Urine WBC (Auto) Vancomycin Trough Salicylates Acetaminophen % CD3 Cells % CD19 Cells Absolute CD19 Count Miscellaneous Test Crossmatch 08/15/18 08/15/18 08/15/18 18:11 18:19 18:31 WBC RBC Hgb Hct RDW Plt Count Lymph % (Auto) [place] % (Auto) Lymph # [place] # Seg Neutrophils % Seg Neuts % (Manual) Lymphocytes % (Manual) Nucleated RBC % Seg Neutrophils # Seg Neutrophils # Man Lymphocytes # (Manual) D-Dimer 2768.33 H POC ABG pH 7.173 L POC ABG pCO2 47.8 H POC ABG pO2 177 H VBG pH 7.187 L* Sodium Potassium Chloride Carbon Dioxide BUN Creatinine Glucose POC Glucose Hemoglobin A1c Lactic Acid Calcium Phosphorus Magnesium Iron TIBC AST ALT Troponin T C-Reactive Protein Total Protein Albumin Triglycerides LDL Cholesterol Direct HDL Cholesterol Urine WBC (Auto) Vancomycin Trough Salicylates Acetaminophen % CD3 Cells % CD19 Cells Absolute CD19 Count Miscellaneous Test Crossmatch 08/15/18 08/15/18 08/15/18 18:31 19:14 19:14 WBC RBC Hgb Hct RDW Plt Count Lymph % (Auto) [place] % (Auto) Lymph # [place] # Seg Neutrophils % Seg Neuts % (Manual) Lymphocytes % (Manual) Nucleated RBC % Seg Neutrophils # Seg Neutrophils # Man Lymphocytes # (Manual) D-Dimer POC ABG pH POC ABG pCO2 POC ABG pO2 VBG pH Sodium Potassium Chloride Carbon Dioxide BUN Creatinine Glucose POC Glucose Hemoglobin A1c Lactic Acid 2.70 H* Calcium Phosphorus Magnesium Iron TIBC AST ALT Troponin T 0.454 H* C-Reactive Protein Total Protein Albumin Triglycerides 356 H LDL Cholesterol Direct 4 L HDL Cholesterol 10 L Urine WBC (Auto) Vancomycin Trough Salicylates < 0.3 L Acetaminophen % CD3 Cells % CD19 Cells Absolute CD19 Count Miscellaneous Test Crossmatch 08/15/18 08/15/18 08/15/18 19:14 19:15 23:09 WBC RBC Hgb Hct RDW Plt Count Lymph % (Auto) [place] % (Auto) Lymph # [place] # Seg Neutrophils % Seg Neuts % (Manual) Lymphocytes % (Manual) Nucleated RBC % Seg Neutrophils # Seg Neutrophils # Man Lymphocytes # (Manual) D-Dimer POC ABG pH POC ABG pCO2 POC ABG pO2 VBG pH Sodium Potassium Chloride Carbon Dioxide BUN Creatinine Glucose POC Glucose Hemoglobin A1c Lactic Acid 3.20 H* Calcium Phosphorus Magnesium Iron TIBC AST ALT Troponin T C-Reactive Protein Total Protein Albumin Triglycerides LDL Cholesterol Direct HDL Cholesterol Urine WBC (Auto) 17.0 H Vancomycin Trough Salicylates Acetaminophen < 5.0 L % CD3 Cells % CD19 Cells Absolute CD19 Count Miscellaneous Test Crossmatch 08/15/18 08/16/18 08/16/18 23:09 01:41 05:38 WBC RBC 3.07 L Hgb 9.8 L Hct 28.7 L RDW Plt Count Lymph % (Auto) [place] % (Auto) Lymph # [place] # Seg Neutrophils % Seg Neuts % (Manual) 84.0 H Lymphocytes % (Manual) 6.0 L Nucleated RBC % 4.0 H Seg Neutrophils # Seg Neutrophils # Man Lymphocytes # (Manual) 0.5 L D-Dimer POC ABG pH 7.323 L POC ABG pCO2 34.7 L POC ABG pO2 78 L VBG pH Sodium Potassium Chloride Carbon Dioxide BUN Creatinine Glucose POC Glucose Hemoglobin A1c 6.4 H Lactic Acid Calcium Phosphorus Magnesium Iron TIBC AST ALT Troponin T C-Reactive Protein Total Protein Albumin Triglycerides LDL Cholesterol Direct HDL Cholesterol Urine WBC (Auto) Vancomycin Trough Salicylates Acetaminophen % CD3 Cells % CD19 Cells Absolute CD19 Count Miscellaneous Test Crossmatch 08/16/18 08/16/18 08/17/18 05:38 22:43 03:42 WBC RBC Hgb Hct RDW Plt Count Lymph % (Auto) [place] % (Auto) Lymph # [place] # Seg Neutrophils % Seg Neuts % (Manual) Lymphocytes % (Manual) Nucleated RBC % Seg Neutrophils # Seg Neutrophils # Man Lymphocytes # (Manual) D-Dimer POC ABG pH POC ABG pCO2 POC ABG pO2 VBG pH Sodium Potassium 2.9 L* 3.1 L 2.9 L* Chloride 108.8 H 111.9 H Carbon Dioxide 17 L 19 L 21 L BUN 62 H 40 H 33 H Creatinine 2.0 H Glucose 139 H 145 H POC Glucose Hemoglobin A1c Lactic Acid Calcium 7.8 L 8.3 L Phosphorus 1.50 L Magnesium Iron TIBC AST 619 H ALT 353 H Troponin T C-Reactive Protein Total Protein 6.1 L Albumin 2.8 L Triglycerides LDL Cholesterol Direct HDL Cholesterol Urine WBC (Auto) Vancomycin Trough Salicylates Acetaminophen % CD3 Cells % CD19 Cells Absolute CD19 Count Miscellaneous Test Crossmatch 08/17/18 08/17/18 08/18/18 11:02 16:42 03:28 WBC RBC Hgb Hct RDW Plt Count Lymph % (Auto) [place] % (Auto) Lymph # [place] # Seg Neutrophils % Seg Neuts % (Manual) Lymphocytes % (Manual) Nucleated RBC % Seg Neutrophils # Seg Neutrophils # Man Lymphocytes # (Manual) D-Dimer POC ABG pH 7.483 H 7.499 H POC ABG pCO2 POC ABG pO2 VBG pH Sodium 147 H Potassium 3.2 L Chloride 115.8 H Carbon Dioxide BUN 23 H Creatinine Glucose 121 H POC Glucose Hemoglobin A1c Lactic Acid Calcium 8.1 L Phosphorus 2.30 L D Magnesium Iron TIBC AST ALT Troponin T C-Reactive Protein Total Protein Albumin Triglycerides LDL Cholesterol Direct HDL Cholesterol Urine WBC (Auto) Vancomycin Trough Salicylates Acetaminophen % CD3 Cells % CD19 Cells Absolute CD19 Count Miscellaneous Test Crossmatch 08/18/18 08/18/18 08/18/18 04:10 13:39 13:39 WBC RBC Hgb Hct RDW Plt Count Lymph % (Auto) [place] % (Auto) Lymph # [place] # Seg Neutrophils % Seg Neuts % (Manual) Lymphocytes % (Manual) Nucleated RBC % Seg Neutrophils # Seg Neutrophils # Man Lymphocytes # (Manual) D-Dimer POC ABG pH POC ABG pCO2 POC ABG pO2 VBG pH Sodium 147 H Potassium 3.3 L Chloride 111.9 H Carbon Dioxide BUN 21 H Creatinine Glucose 113 H POC Glucose Hemoglobin A1c Lactic Acid Calcium Phosphorus 1.50 L D Magnesium Iron TIBC AST ALT Troponin T 0.317 H* D C-Reactive Protein 10.70 H Total Protein Albumin Triglycerides LDL Cholesterol Direct HDL Cholesterol Urine WBC (Auto) Vancomycin Trough Salicylates Acetaminophen % CD3 Cells % CD19 Cells Absolute CD19 Count Miscellaneous Test Crossmatch 08/18/18 08/19/18 08/19/18 16:51 03:47 04:15 WBC RBC Hgb Hct RDW Plt Count Lymph % (Auto) [place] % (Auto) Lymph # [place] # Seg Neutrophils % Seg Neuts % (Manual) Lymphocytes % (Manual) Nucleated RBC % Seg Neutrophils # Seg Neutrophils # Man Lymphocytes # (Manual) D-Dimer POC ABG pH 7.454 H 7.482 H POC ABG pCO2 POC ABG pO2 65 L VBG pH Sodium 154 H Potassium 3.3 L Chloride 115.1 H Carbon Dioxide BUN 19 H Creatinine Glucose 117 H POC Glucose Hemoglobin A1c Lactic Acid Calcium 7.8 L Phosphorus Magnesium Iron TIBC AST ALT Troponin T C-Reactive Protein Total Protein Albumin Triglycerides LDL Cholesterol Direct HDL Cholesterol Urine WBC (Auto) Vancomycin Trough Salicylates Acetaminophen % CD3 Cells % CD19 Cells Absolute CD19 Count Miscellaneous Test Crossmatch 08/19/18 08/19/18 08/20/18 14:32 16:18 03:51 WBC RBC Hgb Hct RDW Plt Count Lymph % (Auto) [place] % (Auto) Lymph # [place] # Seg Neutrophils % Seg Neuts % (Manual) Lymphocytes % (Manual) Nucleated RBC % Seg Neutrophils # Seg Neutrophils # Man Lymphocytes # (Manual) D-Dimer POC ABG pH 7.483 H POC ABG pCO2 33.4 L POC ABG pO2 51 L 74 L VBG pH Sodium Potassium Chloride Carbon Dioxide BUN Creatinine Glucose POC Glucose Hemoglobin A1c Lactic Acid Calcium Phosphorus Magnesium Iron TIBC AST ALT Troponin T C-Reactive Protein Total Protein Albumin Triglycerides LDL Cholesterol Direct HDL Cholesterol Urine WBC (Auto) Vancomycin Trough Salicylates Acetaminophen % CD3 Cells 44 L % CD19 Cells 41 H Absolute CD19 Count 1290 H Miscellaneous Test Crossmatch 08/20/18 08/21/18 08/21/18 05:25 03:54 05:45 WBC 24.1 H RBC 2.83 L Hgb 8.8 L Hct 26.7 L RDW 15.7 H Plt Count 127 L Lymph % (Auto) [place] % (Auto) Lymph # [place] # Seg Neutrophils % Seg Neuts % (Manual) 94.0 H Lymphocytes % (Manual) 4.0 L Nucleated RBC % 1.0 H Seg Neutrophils # Seg Neutrophils # Man 22.7 H Lymphocytes # (Manual) 1.0 L D-Dimer POC ABG pH POC ABG pCO2 31.9 L POC ABG pO2 66 L VBG pH Sodium 146 H D Potassium Chloride 111.2 H Carbon Dioxide BUN 24 H Creatinine Glucose 141 H POC Glucose Hemoglobin A1c Lactic Acid Calcium 8.1 L Phosphorus Magnesium Iron TIBC AST 65 H ALT 104 H Troponin T C-Reactive Protein Total Protein 6.2 L Albumin 2.6 L Triglycerides LDL Cholesterol Direct HDL Cholesterol Urine WBC (Auto) Vancomycin Trough Salicylates Acetaminophen % CD3 Cells % CD19 Cells Absolute CD19 Count Miscellaneous Test Crossmatch 08/21/18 08/22/18 08/22/18 05:45 06:20 06:45 WBC RBC Hgb Hct RDW Plt Count Lymph % (Auto) [place] % (Auto) Lymph # [place] # Seg Neutrophils % Seg Neuts % (Manual) Lymphocytes % (Manual) Nucleated RBC % Seg Neutrophils # Seg Neutrophils # Man Lymphocytes # (Manual) D-Dimer POC ABG pH POC ABG pCO2 32.9 L POC ABG pO2 VBG pH Sodium Potassium 3.5 L Chloride 109.4 H 112.4 H Carbon Dioxide 21 L 20 L BUN 50 H 61 H Creatinine 2.0 H D 1.9 H Glucose 144 H 154 H POC Glucose Hemoglobin A1c Lactic Acid Calcium 7.6 L 7.8 L Phosphorus Magnesium Iron TIBC AST ALT Troponin T C-Reactive Protein Total Protein 5.3 L Albumin 2.1 L Triglycerides LDL Cholesterol Direct HDL Cholesterol Urine WBC (Auto) Vancomycin Trough Salicylates Acetaminophen % CD3 Cells % CD19 Cells Absolute CD19 Count Miscellaneous Test Crossmatch 08/22/18 08/22/18 08/22/18 06:45 15:29 18:40 WBC RBC Hgb Hct RDW Plt Count Lymph % (Auto) [place] % (Auto) Lymph # [place] # Seg Neutrophils % Seg Neuts % (Manual) Lymphocytes % (Manual) Nucleated RBC % Seg Neutrophils # Seg Neutrophils # Man Lymphocytes # (Manual) D-Dimer POC ABG pH POC ABG pCO2 POC ABG pO2 VBG pH Sodium Potassium Chloride Carbon Dioxide BUN Creatinine Glucose POC Glucose 169 H Hemoglobin A1c Lactic Acid Calcium Phosphorus Magnesium Iron TIBC AST ALT Troponin T C-Reactive Protein 4.70 H Total Protein Albumin Triglycerides 197 H LDL Cholesterol Direct HDL Cholesterol Urine WBC (Auto) Vancomycin Trough Salicylates Acetaminophen % CD3 Cells % CD19 Cells Absolute CD19 Count Miscellaneous Test Crossmatch 08/23/18 08/23/18 08/23/18 03:59 21:19 Unknown WBC 12.1 H RBC 2.29 L Hgb 7.1 L Hct 21.7 L RDW 15.7 H Plt Count 106 L Lymph % (Auto) [place] % (Auto) Lymph # [place] # Seg Neutrophils % Seg Neuts % (Manual) 92.0 H Lymphocytes % (Manual) 4.0 L Nucleated RBC % Seg Neutrophils # Seg Neutrophils # Man 11.1 H Lymphocytes # (Manual) 0.5 L D-Dimer POC ABG pH 7.306 L POC ABG pCO2 31.3 L POC ABG pO2 119 H 75 L VBG pH Sodium Potassium Chloride Carbon Dioxide BUN Creatinine Glucose POC Glucose Hemoglobin A1c Lactic Acid Calcium Phosphorus Magnesium Iron TIBC AST ALT Troponin T C-Reactive Protein Total Protein Albumin Triglycerides LDL Cholesterol Direct HDL Cholesterol Urine WBC (Auto) Vancomycin Trough Salicylates Acetaminophen % CD3 Cells % CD19 Cells Absolute CD19 Count Miscellaneous Test Crossmatch 08/23/18 08/24/18 08/24/18 Unknown 04:18 08:30 WBC 12.8 H RBC 2.24 L Hgb 7.0 L Hct 21.1 L RDW Plt Count Lymph % (Auto) [place] % (Auto) Lymph # [place] # Seg Neutrophils % Seg Neuts % (Manual) 93.0 H Lymphocytes % (Manual) 6.0 L Nucleated RBC % Seg Neutrophils # Seg Neutrophils # Man 11.9 H Lymphocytes # (Manual) 0.8 L D-Dimer POC ABG pH POC ABG pCO2 POC ABG pO2 78 L VBG pH Sodium Potassium Chloride 115.7 H Carbon Dioxide 21 L BUN 64 H Creatinine 2.0 H Glucose 149 H POC Glucose Hemoglobin A1c Lactic Acid Calcium 7.5 L Phosphorus Magnesium Iron TIBC AST ALT Troponin T C-Reactive Protein Total Protein 4.8 L Albumin 2.0 L Triglycerides LDL Cholesterol Direct HDL Cholesterol Urine WBC (Auto) Vancomycin Trough Salicylates Acetaminophen % CD3 Cells % CD19 Cells Absolute CD19 Count Miscellaneous Test Crossmatch 08/24/18 08/24/18 08/24/18 08:30 17:44 18:28 WBC RBC Hgb Hct RDW Plt Count Lymph % (Auto) [place] % (Auto) Lymph # [place] # Seg Neutrophils % Seg Neuts % (Manual) Lymphocytes % (Manual) Nucleated RBC % Seg Neutrophils # Seg Neutrophils # Man Lymphocytes # (Manual) D-Dimer POC ABG pH 7.474 H POC ABG pCO2 POC ABG pO2 61 L VBG pH Sodium Potassium Chloride 108.3 H Carbon Dioxide 20 L BUN 65 H Creatinine 2.0 H Glucose 167 H POC Glucose 164 H Hemoglobin A1c Lactic Acid Calcium 7.7 L Phosphorus Magnesium Iron TIBC AST ALT Troponin T C-Reactive Protein Total Protein 5.3 L Albumin 2.2 L Triglycerides LDL Cholesterol Direct HDL Cholesterol Urine WBC (Auto) Vancomycin Trough Salicylates Acetaminophen % CD3 Cells % CD19 Cells Absolute CD19 Count Miscellaneous Test Crossmatch 08/25/18 08/25/18 08/25/18 03:35 05:20 05:20 WBC RBC Hgb 6.7 L Hct 21.0 L RDW Plt Count Lymph % (Auto) [place] % (Auto) Lymph # [place] # Seg Neutrophils % Seg Neuts % (Manual) Lymphocytes % (Manual) Nucleated RBC % Seg Neutrophils # Seg Neutrophils # Man Lymphocytes # (Manual) D-Dimer POC ABG pH POC ABG pCO2 POC ABG pO2 79 L VBG pH Sodium Potassium Chloride Carbon Dioxide 21 L BUN 71 H Creatinine 3.1 H D Glucose 171 H POC Glucose Hemoglobin A1c Lactic Acid Calcium 7.5 L Phosphorus Magnesium Iron TIBC AST ALT Troponin T C-Reactive Protein Total Protein Albumin Triglycerides LDL Cholesterol Direct HDL Cholesterol Urine WBC (Auto) Vancomycin Trough Salicylates Acetaminophen % CD3 Cells % CD19 Cells Absolute CD19 Count Miscellaneous Test Crossmatch 08/25/18 08/25/18 08/25/18 05:20 08:52 12:42 WBC RBC Hgb Hct RDW Plt Count Lymph % (Auto) [place] % (Auto) Lymph # [place] # Seg Neutrophils % Seg Neuts % (Manual) Lymphocytes % (Manual) Nucleated RBC % Seg Neutrophils # Seg Neutrophils # Man Lymphocytes # (Manual) D-Dimer POC ABG pH POC ABG pCO2 POC ABG pO2 VBG pH Sodium Potassium Chloride Carbon Dioxide BUN Creatinine Glucose POC Glucose 166 H Hemoglobin A1c Lactic Acid Calcium Phosphorus Magnesium Iron TIBC AST ALT Troponin T C-Reactive Protein 5.00 H Total Protein Albumin Triglycerides LDL Cholesterol Direct HDL Cholesterol Urine WBC (Auto) Vancomycin Trough Salicylates Acetaminophen % CD3 Cells % CD19 Cells Absolute CD19 Count Miscellaneous Test Crossmatch See Detail 08/25/18 08/26/18 08/26/18 18:05 00:13 04:53 WBC RBC Hgb Hct RDW Plt Count Lymph % (Auto) [place] % (Auto) Lymph # [place] # Seg Neutrophils % Seg Neuts % (Manual) Lymphocytes % (Manual) Nucleated RBC % Seg Neutrophils # Seg Neutrophils # Man Lymphocytes # (Manual) D-Dimer POC ABG pH POC ABG pCO2 30.9 L POC ABG pO2 70 L VBG pH Sodium Potassium Chloride Carbon Dioxide BUN Creatinine Glucose POC Glucose 121 H 164 H Hemoglobin A1c Lactic Acid Calcium Phosphorus Magnesium Iron TIBC AST ALT Troponin T C-Reactive Protein Total Protein Albumin Triglycerides LDL Cholesterol Direct HDL Cholesterol Urine WBC (Auto) Vancomycin Trough Salicylates Acetaminophen % CD3 Cells % CD19 Cells Absolute CD19 Count Miscellaneous Test Crossmatch 08/26/18 08/26/18 08/26/18 05:42 06:00 06:00 WBC RBC 2.62 L Hgb 7.7 L Hct 23.0 L RDW 22.0 H Plt Count Lymph % (Auto) 6.3 L [place] % (Auto) Lymph # 0.7 L [place] # Seg Neutrophils % 88.1 H Seg Neuts % (Manual) Lymphocytes % (Manual) Nucleated RBC % Seg Neutrophils # 9.6 H Seg Neutrophils # Man Lymphocytes # (Manual) D-Dimer POC ABG pH POC ABG pCO2 POC ABG pO2 VBG pH Sodium Potassium Chloride Carbon Dioxide 21 L BUN 70 H Creatinine 3.3 H Glucose 146 H POC Glucose 149 H Hemoglobin A1c Lactic Acid Calcium 8.0 L Phosphorus Magnesium Iron TIBC AST ALT Troponin T C-Reactive Protein Total Protein Albumin Triglycerides LDL Cholesterol Direct HDL Cholesterol Urine WBC (Auto) Vancomycin Trough Salicylates Acetaminophen % CD3 Cells % CD19 Cells Absolute CD19 Count Miscellaneous Test Crossmatch 08/26/18 08/26/18 08/27/18 11:37 23:54 04:35 WBC RBC 2.50 L Hgb 7.6 L Hct 22.3 L RDW 21.8 H Plt Count Lymph % (Auto) 7.3 L [place] % (Auto) Lymph # 0.7 L [place] # Seg Neutrophils % 85.6 H Seg Neuts % (Manual) Lymphocytes % (Manual) Nucleated RBC % Seg Neutrophils # 8.6 H Seg Neutrophils # Man Lymphocytes # (Manual) D-Dimer POC ABG pH POC ABG pCO2 POC ABG pO2 VBG pH Sodium Potassium Chloride Carbon Dioxide BUN Creatinine Glucose POC Glucose 183 H 150 H Hemoglobin A1c Lactic Acid Calcium Phosphorus Magnesium Iron TIBC AST ALT Troponin T C-Reactive Protein Total Protein Albumin Triglycerides LDL Cholesterol Direct HDL Cholesterol Urine WBC (Auto) Vancomycin Trough Salicylates Acetaminophen % CD3 Cells % CD19 Cells Absolute CD19 Count Miscellaneous Test Crossmatch 08/27/18 08/27/18 08/28/18 04:35 12:17 04:43 WBC RBC Hgb Hct RDW Plt Count Lymph % (Auto) [place] % (Auto) Lymph # [place] # Seg Neutrophils % Seg Neuts % (Manual) Lymphocytes % (Manual) Nucleated RBC % Seg Neutrophils # Seg Neutrophils # Man Lymphocytes # (Manual) D-Dimer POC ABG pH POC ABG pCO2 32.1 L 33.8 L POC ABG pO2 68 L 78 L VBG pH Sodium Potassium Chloride Carbon Dioxide 19 L BUN 67 H Creatinine 2.9 H Glucose 155 H POC Glucose Hemoglobin A1c Lactic Acid Calcium Phosphorus 4.70 H Magnesium Iron TIBC AST ALT Troponin T C-Reactive Protein Total Protein Albumin Triglycerides LDL Cholesterol Direct HDL Cholesterol Urine WBC (Auto) Vancomycin Trough Salicylates Acetaminophen % CD3 Cells % CD19 Cells Absolute CD19 Count Miscellaneous Test Crossmatch 08/28/18 08/28/18 08/28/18 05:03 05:20 05:20 WBC RBC 2.43 L Hgb 7.4 L Hct 21.8 L RDW 20.8 H Plt Count Lymph % (Auto) 7.6 L [place] % (Auto) 8.7 H Lymph # 0.7 L [place] # Seg Neutrophils % 82.9 H Seg Neuts % (Manual) Lymphocytes % (Manual) Nucleated RBC % Seg Neutrophils # Seg Neutrophils # Man Lymphocytes # (Manual) D-Dimer POC ABG pH POC ABG pCO2 POC ABG pO2 VBG pH Sodium Potassium Chloride 107.8 H Carbon Dioxide 21 L BUN 55 H Creatinine 2.0 H Glucose 177 H POC Glucose 160 H Hemoglobin A1c Lactic Acid Calcium Phosphorus Magnesium Iron TIBC AST ALT Troponin T C-Reactive Protein Total Protein Albumin Triglycerides LDL Cholesterol Direct HDL Cholesterol Urine WBC (Auto) Vancomycin Trough Salicylates Acetaminophen % CD3 Cells % CD19 Cells Absolute CD19 Count Miscellaneous Test Crossmatch 08/28/18 08/28/18 08/28/18 12:18 18:58 22:31 WBC RBC Hgb Hct RDW Plt Count Lymph % (Auto) [place] % (Auto) Lymph # [place] # Seg Neutrophils % Seg Neuts % (Manual) Lymphocytes % (Manual) Nucleated RBC % Seg Neutrophils # Seg Neutrophils # Man Lymphocytes # (Manual) D-Dimer POC ABG pH POC ABG pCO2 34.4 L POC ABG pO2 67 L VBG pH Sodium Potassium Chloride Carbon Dioxide BUN Creatinine Glucose POC Glucose 164 H 149 H Hemoglobin A1c Lactic Acid Calcium Phosphorus Magnesium Iron TIBC AST ALT Troponin T C-Reactive Protein Total Protein Albumin Triglycerides LDL Cholesterol Direct HDL Cholesterol Urine WBC (Auto) Vancomycin Trough Salicylates Acetaminophen % CD3 Cells % CD19 Cells Absolute CD19 Count Miscellaneous Test Crossmatch 08/28/18 08/29/18 08/29/18 23:33 05:25 05:25 WBC RBC 2.30 L Hgb 7.0 L Hct 20.9 L RDW 21.0 H Plt Count Lymph % (Auto) 11.5 L [place] % (Auto) 9.2 H Lymph # 0.8 L [place] # Seg Neutrophils % 78.8 H Seg Neuts % (Manual) Lymphocytes % (Manual) Nucleated RBC % Seg Neutrophils # Seg Neutrophils # Man Lymphocytes # (Manual) D-Dimer POC ABG pH POC ABG pCO2 POC ABG pO2 VBG pH Sodium Potassium Chloride 111.1 H Carbon Dioxide BUN 55 H Creatinine 1.8 H Glucose 162 H POC Glucose 143 H Hemoglobin A1c Lactic Acid Calcium Phosphorus Magnesium Iron TIBC AST 46 H ALT < 5 L Troponin T C-Reactive Protein Total Protein 5.7 L Albumin 2.1 L Triglycerides LDL Cholesterol Direct HDL Cholesterol Urine WBC (Auto) Vancomycin Trough Salicylates Acetaminophen % CD3 Cells % CD19 Cells Absolute CD19 Count Miscellaneous Test Crossmatch 08/29/18 08/29/18 08/30/18 18:19 23:35 05:03 WBC RBC Hgb Hct RDW Plt Count Lymph % (Auto) [place] % (Auto) Lymph # [place] # Seg Neutrophils % Seg Neuts % (Manual) Lymphocytes % (Manual) Nucleated RBC % Seg Neutrophils # Seg Neutrophils # Man Lymphocytes # (Manual) D-Dimer POC ABG pH POC ABG pCO2 POC ABG pO2 VBG pH Sodium Potassium Chloride Carbon Dioxide BUN Creatinine Glucose POC Glucose 155 H 139 H 122 H Hemoglobin A1c Lactic Acid Calcium Phosphorus Magnesium Iron TIBC AST ALT Troponin T C-Reactive Protein Total Protein Albumin Triglycerides LDL Cholesterol Direct HDL Cholesterol Urine WBC (Auto) Vancomycin Trough Salicylates Acetaminophen % CD3 Cells % CD19 Cells Absolute CD19 Count Miscellaneous Test Crossmatch 08/30/18 08/30/18 08/30/18 09:33 09:33 09:54 WBC RBC 2.58 L Hgb 7.9 L Hct 23.5 L RDW 20.9 H Plt Count Lymph % (Auto) 8.0 L [place] % (Auto) 9.7 H Lymph # 0.8 L [place] # 1.0 H Seg Neutrophils % 82.1 H Seg Neuts % (Manual) Lymphocytes % (Manual) Nucleated RBC % Seg Neutrophils # 8.2 H Seg Neutrophils # Man Lymphocytes # (Manual) D-Dimer POC ABG pH POC ABG pCO2 POC ABG pO2 VBG pH Sodium 146 H Potassium Chloride 110.7 H Carbon Dioxide BUN 56 H Creatinine 1.9 H Glucose 145 H POC Glucose Hemoglobin A1c Lactic Acid Calcium Phosphorus 4.60 H Magnesium Iron TIBC AST ALT < 5 L Troponin T C-Reactive Protein Total Protein Albumin 2.7 L Triglycerides LDL Cholesterol Direct HDL Cholesterol Urine WBC (Auto) Vancomycin Trough Salicylates Acetaminophen % CD3 Cells % CD19 Cells Absolute CD19 Count Miscellaneous Test Flexitest 1 H Crossmatch 08/30/18 08/30/18 08/30/18 09:57 11:26 18:08 WBC RBC Hgb Hct RDW Plt Count Lymph % (Auto) [place] % (Auto) Lymph # [place] # Seg Neutrophils % Seg Neuts % (Manual) Lymphocytes % (Manual) Nucleated RBC % Seg Neutrophils # Seg Neutrophils # Man Lymphocytes # (Manual) D-Dimer POC ABG pH POC ABG pCO2 POC ABG pO2 VBG pH Sodium Potassium Chloride Carbon Dioxide BUN Creatinine Glucose POC Glucose 149 H 156 H Hemoglobin A1c Lactic Acid Calcium Phosphorus Magnesium Iron TIBC AST ALT Troponin T C-Reactive Protein Total Protein Albumin Triglycerides LDL Cholesterol Direct HDL Cholesterol Urine WBC (Auto) Vancomycin Trough Salicylates Acetaminophen % CD3 Cells % CD19 Cells Absolute CD19 Count Miscellaneous Test Flexitest 1 H Crossmatch 08/30/18 08/31/18 08/31/18 23:14 05:16 08:40 WBC RBC Hgb Hct RDW Plt Count Lymph % (Auto) [place] % (Auto) Lymph # [place] # Seg Neutrophils % Seg Neuts % (Manual) Lymphocytes % (Manual) Nucleated RBC % Seg Neutrophils # Seg Neutrophils # Man Lymphocytes # (Manual) D-Dimer POC ABG pH POC ABG pCO2 POC ABG pO2 VBG pH Sodium 151 H Potassium Chloride 113.8 H Carbon Dioxide BUN 45 H Creatinine Glucose 144 H POC Glucose 117 H 133 H Hemoglobin A1c Lactic Acid Calcium Phosphorus Magnesium Iron TIBC AST ALT Troponin T C-Reactive Protein Total Protein Albumin Triglycerides LDL Cholesterol Direct HDL Cholesterol Urine WBC (Auto) Vancomycin Trough Salicylates Acetaminophen % CD3 Cells % CD19 Cells Absolute CD19 Count Miscellaneous Test Crossmatch 08/31/18 09/01/18 09/01/18 23:46 04:45 04:45 WBC RBC 2.38 L Hgb 7.3 L Hct 22.1 L RDW 21.1 H Plt Count Lymph % (Auto) [place] % (Auto) Lymph # [place] # Seg Neutrophils % Seg Neuts % (Manual) 93.0 H Lymphocytes % (Manual) 4.0 L Nucleated RBC % Seg Neutrophils # Seg Neutrophils # Man 10.1 H Lymphocytes # (Manual) 0.4 L D-Dimer POC ABG pH POC ABG pCO2 POC ABG pO2 VBG pH Sodium 156 H Potassium 3.1 L Chloride 115.2 H Carbon Dioxide BUN 34 H Creatinine Glucose 125 H POC Glucose 124 H Hemoglobin A1c Lactic Acid Calcium Phosphorus Magnesium Iron TIBC AST ALT Troponin T C-Reactive Protein Total Protein Albumin Triglycerides LDL Cholesterol Direct HDL Cholesterol Urine WBC (Auto) Vancomycin Trough Salicylates Acetaminophen % CD3 Cells % CD19 Cells Absolute CD19 Count Miscellaneous Test Crossmatch 09/01/18 09/01/18 09/01/18 05:34 11:20 17:52 WBC RBC Hgb Hct RDW Plt Count Lymph % (Auto) [place] % (Auto) Lymph # [place] # Seg Neutrophils % Seg Neuts % (Manual) Lymphocytes % (Manual) Nucleated RBC % Seg Neutrophils # Seg Neutrophils # Man Lymphocytes # (Manual) D-Dimer POC ABG pH 7.553 H POC ABG pCO2 POC ABG pO2 74 L VBG pH Sodium Potassium Chloride Carbon Dioxide BUN Creatinine Glucose POC Glucose 128 H 146 H Hemoglobin A1c Lactic Acid Calcium Phosphorus Magnesium Iron TIBC AST ALT Troponin T C-Reactive Protein Total Protein Albumin Triglycerides LDL Cholesterol Direct HDL Cholesterol Urine WBC (Auto) Vancomycin Trough Salicylates Acetaminophen % CD3 Cells % CD19 Cells Absolute CD19 Count Miscellaneous Test Crossmatch 09/01/18 09/02/18 09/02/18 17:52 04:13 04:58 WBC 16.4 H RBC 2.64 L Hgb 7.9 L Hct 24.3 L RDW 20.8 H Plt Count Lymph % (Auto) [place] % (Auto) Lymph # [place] # Seg Neutrophils % Seg Neuts % (Manual) 96.0 H Lymphocytes % (Manual) 1.0 L Nucleated RBC % Seg Neutrophils # Seg Neutrophils # Man 15.7 H Lymphocytes # (Manual) 0.2 L D-Dimer POC ABG pH 7.488 H POC ABG pCO2 POC ABG pO2 63 L VBG pH Sodium Potassium Chloride Carbon Dioxide BUN Creatinine Glucose POC Glucose 143 H Hemoglobin A1c Lactic Acid Calcium Phosphorus Magnesium Iron TIBC AST ALT Troponin T C-Reactive Protein Total Protein Albumin Triglycerides LDL Cholesterol Direct HDL Cholesterol Urine WBC (Auto) Vancomycin Trough Salicylates Acetaminophen % CD3 Cells % CD19 Cells Absolute CD19 Count Miscellaneous Test Crossmatch 09/02/18 09/02/18 09/02/18 04:58 11:03 18:18 WBC RBC Hgb Hct RDW Plt Count Lymph % (Auto) [place] % (Auto) Lymph # [place] # Seg Neutrophils % Seg Neuts % (Manual) Lymphocytes % (Manual) Nucleated RBC % Seg Neutrophils # Seg Neutrophils # Man Lymphocytes # (Manual) D-Dimer POC ABG pH 7.344 L POC ABG pCO2 52.8 H POC ABG pO2 VBG pH Sodium 158 H Potassium 2.9 L* Chloride 115.7 H Carbon Dioxide BUN 27 H Creatinine 0.6 L Glucose 128 H POC Glucose 121 H Hemoglobin A1c Lactic Acid Calcium Phosphorus Magnesium 1.60 L Iron TIBC AST 64 H ALT Troponin T C-Reactive Protein Total Protein Albumin 2.6 L Triglycerides LDL Cholesterol Direct HDL Cholesterol Urine WBC (Auto) Vancomycin Trough Salicylates Acetaminophen % CD3 Cells % CD19 Cells Absolute CD19 Count Miscellaneous Test Crossmatch 09/02/18 09/03/18 09/03/18 23:06 03:36 04:25 WBC RBC 2.20 L Hgb 6.7 L Hct 20.9 L RDW 21.1 H Plt Count Lymph % (Auto) [place] % (Auto) Lymph # [place] # Seg Neutrophils % Seg Neuts % (Manual) 90.0 H Lymphocytes % (Manual) 5.0 L Nucleated RBC % Seg Neutrophils # Seg Neutrophils # Man 8.7 H Lymphocytes # (Manual) 0.5 L D-Dimer POC ABG pH POC ABG pCO2 POC ABG pO2 54 L VBG pH Sodium Potassium Chloride Carbon Dioxide BUN Creatinine Glucose POC Glucose 121 H Hemoglobin A1c Lactic Acid Calcium Phosphorus Magnesium Iron TIBC AST ALT Troponin T C-Reactive Protein Total Protein Albumin Triglycerides LDL Cholesterol Direct HDL Cholesterol Urine WBC (Auto) Vancomycin Trough Salicylates Acetaminophen % CD3 Cells % CD19 Cells Absolute CD19 Count Miscellaneous Test Crossmatch 09/03/18 09/03/18 09/03/18 04:25 05:45 10:24 WBC RBC Hgb Hct RDW Plt Count Lymph % (Auto) [place] % (Auto) Lymph # [place] # Seg Neutrophils % Seg Neuts % (Manual) Lymphocytes % (Manual) Nucleated RBC % Seg Neutrophils # Seg Neutrophils # Man Lymphocytes # (Manual) D-Dimer POC ABG pH POC ABG pCO2 POC ABG pO2 VBG pH Sodium 158 H Potassium 3.1 L Chloride 120.4 H Carbon Dioxide BUN 25 H Creatinine 0.6 L Glucose 127 H POC Glucose 178 H Hemoglobin A1c Lactic Acid Calcium 7.9 L Phosphorus Magnesium Iron TIBC AST ALT Troponin T C-Reactive Protein Total Protein 6.0 L Albumin 2.4 L Triglycerides LDL Cholesterol Direct HDL Cholesterol Urine WBC (Auto) Vancomycin Trough Salicylates Acetaminophen % CD3 Cells % CD19 Cells Absolute CD19 Count Miscellaneous Test Crossmatch See Detail 09/03/18 09/03/18 09/04/18 11:27 23:09 04:42 WBC RBC Hgb Hct RDW Plt Count Lymph % (Auto) [place] % (Auto) Lymph # [place] # Seg Neutrophils % Seg Neuts % (Manual) Lymphocytes % (Manual) Nucleated RBC % Seg Neutrophils # Seg Neutrophils # Man Lymphocytes # (Manual) D-Dimer POC ABG pH 7.293 L POC ABG pCO2 50.2 H POC ABG pO2 VBG pH Sodium Potassium Chloride Carbon Dioxide BUN Creatinine Glucose POC Glucose 107 H 139 H Hemoglobin A1c Lactic Acid Calcium Phosphorus Magnesium Iron TIBC AST ALT Troponin T C-Reactive Protein Total Protein Albumin Triglycerides LDL Cholesterol Direct HDL Cholesterol Urine WBC (Auto) Vancomycin Trough Salicylates Acetaminophen % CD3 Cells % CD19 Cells Absolute CD19 Count Miscellaneous Test Crossmatch 09/04/18 09/04/18 09/04/18 05:00 06:30 06:30 WBC RBC 2.32 L Hgb 7.0 L Hct 21.9 L RDW 20.2 H Plt Count Lymph % (Auto) [place] % (Auto) Lymph # [place] # Seg Neutrophils % 80.1 H Seg Neuts % (Manual) Lymphocytes % (Manual) Nucleated RBC % Seg Neutrophils # 8.2 H Seg Neutrophils # Man Lymphocytes # (Manual) D-Dimer POC ABG pH POC ABG pCO2 POC ABG pO2 VBG pH Sodium 150 H D Potassium Chloride 115.9 H Carbon Dioxide BUN 21 H Creatinine 0.6 L Glucose 125 H POC Glucose 154 H Hemoglobin A1c Lactic Acid Calcium 7.9 L Phosphorus Magnesium 1.50 L Iron TIBC AST ALT Troponin T C-Reactive Protein Total Protein Albumin Triglycerides LDL Cholesterol Direct HDL Cholesterol Urine WBC (Auto) Vancomycin Trough Salicylates Acetaminophen % CD3 Cells % CD19 Cells Absolute CD19 Count Miscellaneous Test Crossmatch 09/04/18 09/04/18 09/04/18 11:20 11:51 18:27 WBC RBC Hgb Hct RDW Plt Count Lymph % (Auto) [place] % (Auto) Lymph # [place] # Seg Neutrophils % Seg Neuts % (Manual) Lymphocytes % (Manual) Nucleated RBC % Seg Neutrophils # Seg Neutrophils # Man Lymphocytes # (Manual) D-Dimer POC ABG pH 7.244 L POC ABG pCO2 54.2 H POC ABG pO2 62 L VBG pH Sodium Potassium Chloride Carbon Dioxide BUN Creatinine Glucose POC Glucose 156 H 129 H Hemoglobin A1c Lactic Acid Calcium Phosphorus Magnesium Iron TIBC AST ALT Troponin T C-Reactive Protein Total Protein Albumin Triglycerides LDL Cholesterol Direct HDL Cholesterol Urine WBC (Auto) Vancomycin Trough Salicylates Acetaminophen % CD3 Cells % CD19 Cells Absolute CD19 Count Miscellaneous Test Crossmatch 09/05/18 09/05/18 09/05/18 03:46 04:00 04:00 WBC RBC 2.13 L Hgb 6.4 L Hct 20.1 L RDW 19.9 H Plt Count 117 L Lymph % (Auto) [place] % (Auto) Lymph # 0.9 L [place] # Seg Neutrophils % 81.7 H Seg Neuts % (Manual) Lymphocytes % (Manual) Nucleated RBC % Seg Neutrophils # Seg Neutrophils # Man Lymphocytes # (Manual) D-Dimer POC ABG pH 7.282 L POC ABG pCO2 57.3 H POC ABG pO2 124 H VBG pH Sodium Potassium Chloride 111.0 H Carbon Dioxide BUN 20 H Creatinine Glucose 130 H POC Glucose Hemoglobin A1c Lactic Acid Calcium 7.8 L Phosphorus Magnesium 1.60 L Iron TIBC AST ALT Troponin T C-Reactive Protein Total Protein Albumin Triglycerides LDL Cholesterol Direct HDL Cholesterol Urine WBC (Auto) Vancomycin Trough Salicylates Acetaminophen % CD3 Cells % CD19 Cells Absolute CD19 Count Miscellaneous Test Crossmatch 09/05/18 09/05/18 09/05/18 12:15 17:24 23:24 WBC RBC Hgb Hct RDW Plt Count Lymph % (Auto) [place] % (Auto) Lymph # [place] # Seg Neutrophils % Seg Neuts % (Manual) Lymphocytes % (Manual) Nucleated RBC % Seg Neutrophils # Seg Neutrophils # Man Lymphocytes # (Manual) D-Dimer POC ABG pH POC ABG pCO2 POC ABG pO2 VBG pH Sodium Potassium Chloride Carbon Dioxide BUN Creatinine Glucose POC Glucose 143 H 116 H 116 H Hemoglobin A1c Lactic Acid Calcium Phosphorus Magnesium Iron TIBC AST ALT Troponin T C-Reactive Protein Total Protein Albumin Triglycerides LDL Cholesterol Direct HDL Cholesterol Urine WBC (Auto) Vancomycin Trough Salicylates Acetaminophen % CD3 Cells % CD19 Cells Absolute CD19 Count Miscellaneous Test Crossmatch 09/06/18 09/06/18 09/06/18 03:33 04:20 04:20 WBC RBC 2.45 L Hgb 7.4 L Hct 23.0 L RDW 18.1 H Plt Count 99 L Lymph % (Auto) [place] % (Auto) Lymph # 1.0 L [place] # Seg Neutrophils % 78.0 H Seg Neuts % (Manual) Lymphocytes % (Manual) Nucleated RBC % Seg Neutrophils # Seg Neutrophils # Man Lymphocytes # (Manual) D-Dimer POC ABG pH 7.303 L POC ABG pCO2 49.2 H POC ABG pO2 73 L VBG pH Sodium Potassium Chloride 109.3 H Carbon Dioxide BUN 24 H Creatinine Glucose 108 H POC Glucose Hemoglobin A1c Lactic Acid Calcium 8.1 L Phosphorus Magnesium Iron TIBC AST ALT Troponin T C-Reactive Protein Total Protein Albumin Triglycerides LDL Cholesterol Direct HDL Cholesterol Urine WBC (Auto) Vancomycin Trough Salicylates Acetaminophen % CD3 Cells % CD19 Cells Absolute CD19 Count Miscellaneous Test Crossmatch 09/06/18 09/06/18 09/06/18 04:55 11:29 14:40 WBC RBC Hgb Hct RDW Plt Count Lymph % (Auto) [place] % (Auto) Lymph # [place] # Seg Neutrophils % Seg Neuts % (Manual) Lymphocytes % (Manual) Nucleated RBC % Seg Neutrophils # Seg Neutrophils # Man Lymphocytes # (Manual) D-Dimer POC ABG pH POC ABG pCO2 POC ABG pO2 VBG pH Sodium Potassium Chloride Carbon Dioxide BUN Creatinine Glucose POC Glucose 124 H 149 H Hemoglobin A1c Lactic Acid Calcium Phosphorus Magnesium Iron TIBC AST ALT Troponin T C-Reactive Protein Total Protein Albumin Triglycerides LDL Cholesterol Direct HDL Cholesterol Urine WBC (Auto) Vancomycin Trough 28.6 H Salicylates Acetaminophen % CD3 Cells % CD19 Cells Absolute CD19 Count Miscellaneous Test Crossmatch 09/06/18 09/06/18 09/07/18 17:43 20:08 00:39 WBC RBC Hgb Hct RDW Plt Count Lymph % (Auto) [place] % (Auto) Lymph # [place] # Seg Neutrophils % Seg Neuts % (Manual) Lymphocytes % (Manual) Nucleated RBC % Seg Neutrophils # Seg Neutrophils # Man Lymphocytes # (Manual) D-Dimer POC ABG pH POC ABG pCO2 POC ABG pO2 VBG pH Sodium Potassium Chloride Carbon Dioxide BUN Creatinine Glucose POC Glucose 138 H 118 H 131 H Hemoglobin A1c Lactic Acid Calcium Phosphorus Magnesium Iron TIBC AST ALT Troponin T C-Reactive Protein Total Protein Albumin Triglycerides LDL Cholesterol Direct HDL Cholesterol Urine WBC (Auto) Vancomycin Trough Salicylates Acetaminophen % CD3 Cells % CD19 Cells Absolute CD19 Count Miscellaneous Test Crossmatch 09/07/18 09/07/18 09/07/18 05:40 05:40 12:03 WBC RBC 2.40 L Hgb 7.3 L Hct 22.5 L RDW 17.8 H Plt Count 92 L Lymph % (Auto) [place] % (Auto) Lymph # [place] # Seg Neutrophils % Seg Neuts % (Manual) 80.0 H Lymphocytes % (Manual) Nucleated RBC % 1.0 H Seg Neutrophils # Seg Neutrophils # Man Lymphocytes # (Manual) 0.8 L D-Dimer POC ABG pH POC ABG pCO2 POC ABG pO2 VBG pH Sodium Potassium Chloride 109.8 H Carbon Dioxide BUN 26 H Creatinine Glucose 118 H POC Glucose 145 H Hemoglobin A1c Lactic Acid Calcium 8.0 L Phosphorus Magnesium Iron 26 L TIBC 150 L AST 88 H ALT Troponin T C-Reactive Protein Total Protein 5.8 L Albumin 2.1 L Triglycerides LDL Cholesterol Direct HDL Cholesterol Urine WBC (Auto) Vancomycin Trough Salicylates Acetaminophen % CD3 Cells % CD19 Cells Absolute CD19 Count Miscellaneous Test Crossmatch 09/07/18 09/07/18 09/08/18 17:39 23:21 05:48 WBC RBC Hgb Hct RDW Plt Count Lymph % (Auto) [place] % (Auto) Lymph # [place] # Seg Neutrophils % Seg Neuts % (Manual) Lymphocytes % (Manual) Nucleated RBC % Seg Neutrophils # Seg Neutrophils # Man Lymphocytes # (Manual) D-Dimer POC ABG pH POC ABG pCO2 POC ABG pO2 VBG pH Sodium Potassium Chloride Carbon Dioxide BUN Creatinine Glucose POC Glucose 128 H 136 H 129 H Hemoglobin A1c Lactic Acid Calcium Phosphorus Magnesium Iron TIBC AST ALT Troponin T C-Reactive Protein Total Protein Albumin Triglycerides LDL Cholesterol Direct HDL Cholesterol Urine WBC (Auto) Vancomycin Trough Salicylates Acetaminophen % CD3 Cells % CD19 Cells Absolute CD19 Count Miscellaneous Test Crossmatch 09/08/18 09/08/18 09/08/18 06:17 10:06 10:42 WBC RBC Hgb Hct RDW Plt Count Lymph % (Auto) [place] % (Auto) Lymph # [place] # Seg Neutrophils % Seg Neuts % (Manual) Lymphocytes % (Manual) Nucleated RBC % Seg Neutrophils # Seg Neutrophils # Man Lymphocytes # (Manual) D-Dimer POC ABG pH 7.292 L 7.276 L POC ABG pCO2 56.9 H 65.1 H POC ABG pO2 VBG pH Sodium 146 H Potassium Chloride 109.1 H Carbon Dioxide BUN 28 H Creatinine Glucose 165 H POC Glucose Hemoglobin A1c Lactic Acid Calcium Phosphorus Magnesium Iron TIBC AST ALT Troponin T C-Reactive Protein Total Protein Albumin Triglycerides LDL Cholesterol Direct HDL Cholesterol Urine WBC (Auto) Vancomycin Trough Salicylates Acetaminophen % CD3 Cells % CD19 Cells Absolute CD19 Count Miscellaneous Test Crossmatch 09/08/18 09/08/18 09/08/18 11:06 18:07 23:20 WBC RBC Hgb Hct RDW Plt Count Lymph % (Auto) [place] % (Auto) Lymph # [place] # Seg Neutrophils % Seg Neuts % (Manual) Lymphocytes % (Manual) Nucleated RBC % Seg Neutrophils # Seg Neutrophils # Man Lymphocytes # (Manual) D-Dimer POC ABG pH POC ABG pCO2 POC ABG pO2 VBG pH Sodium Potassium Chloride Carbon Dioxide BUN Creatinine Glucose POC Glucose 165 H 140 H 124 H Hemoglobin A1c Lactic Acid Calcium Phosphorus Magnesium Iron TIBC AST ALT Troponin T C-Reactive Protein Total Protein Albumin Triglycerides LDL Cholesterol Direct HDL Cholesterol Urine WBC (Auto) Vancomycin Trough Salicylates Acetaminophen % CD3 Cells % CD19 Cells Absolute CD19 Count Miscellaneous Test Crossmatch 09/09/18 09/09/18 09/09/18 05:04 08:39 08:39 WBC RBC 2.60 L Hgb 8.1 L Hct 24.6 L RDW 17.9 H Plt Count Lymph % (Auto) [place] % (Auto) Lymph # [place] # Seg Neutrophils % Seg Neuts % (Manual) Lymphocytes % (Manual) Nucleated RBC % Seg Neutrophils # Seg Neutrophils # Man Lymphocytes # (Manual) D-Dimer POC ABG pH POC ABG pCO2 POC ABG pO2 VBG pH Sodium Potassium Chloride Carbon Dioxide BUN 32 H Creatinine Glucose 150 H POC Glucose 168 H Hemoglobin A1c Lactic Acid Calcium Phosphorus Magnesium Iron TIBC AST ALT Troponin T C-Reactive Protein Total Protein Albumin Triglycerides LDL Cholesterol Direct HDL Cholesterol Urine WBC (Auto) Vancomycin Trough Salicylates Acetaminophen % CD3 Cells % CD19 Cells Absolute CD19 Count Miscellaneous Test Crossmatch 09/09/18 09/10/18 09/10/18 12:41 04:20 04:20 WBC RBC 2.49 L Hgb 7.7 L Hct 23.4 L RDW 18.0 H Plt Count Lymph % (Auto) 8.2 L [place] % (Auto) Lymph # 0.7 L [place] # Seg Neutrophils % 87.7 H Seg Neuts % (Manual) Lymphocytes % (Manual) Nucleated RBC % Seg Neutrophils # Seg Neutrophils # Man Lymphocytes # (Manual) D-Dimer POC ABG pH POC ABG pCO2 POC ABG pO2 VBG pH Sodium Potassium Chloride Carbon Dioxide 31 H BUN 39 H Creatinine Glucose 183 H POC Glucose 150 H Hemoglobin A1c Lactic Acid Calcium Phosphorus Magnesium Iron TIBC AST 85 H ALT 58 H Troponin T C-Reactive Protein Total Protein Albumin 2.5 L Triglycerides LDL Cholesterol Direct HDL Cholesterol Urine WBC (Auto) Vancomycin Trough Salicylates Acetaminophen % CD3 Cells % CD19 Cells Absolute CD19 Count Miscellaneous Test Crossmatch 09/10/18 09/10/18 09/10/18 04:39 05:06 11:17 WBC RBC Hgb Hct RDW Plt Count Lymph % (Auto) [place] % (Auto) Lymph # [place] # Seg Neutrophils % Seg Neuts % (Manual) Lymphocytes % (Manual) Nucleated RBC % Seg Neutrophils # Seg Neutrophils # Man Lymphocytes # (Manual) D-Dimer POC ABG pH POC ABG pCO2 51.4 H POC ABG pO2 VBG pH Sodium Potassium Chloride Carbon Dioxide BUN Creatinine Glucose POC Glucose 185 H 159 H Hemoglobin A1c Lactic Acid Calcium Phosphorus Magnesium Iron TIBC AST ALT Troponin T C-Reactive Protein Total Protein Albumin Triglycerides LDL Cholesterol Direct HDL Cholesterol Urine WBC (Auto) Vancomycin Trough Salicylates Acetaminophen % CD3 Cells % CD19 Cells Absolute CD19 Count Miscellaneous Test Crossmatch 09/10/18 09/11/18 09/11/18 16:57 00:17 01:10 WBC RBC Hgb Hct RDW Plt Count Lymph % (Auto) [place] % (Auto) Lymph # [place] # Seg Neutrophils % Seg Neuts % (Manual) Lymphocytes % (Manual) Nucleated RBC % Seg Neutrophils # Seg Neutrophils # Man Lymphocytes # (Manual) D-Dimer POC ABG pH POC ABG pCO2 POC ABG pO2 VBG pH Sodium Potassium Chloride Carbon Dioxide 34 H BUN 44 H Creatinine Glucose 154 H POC Glucose 177 H 163 H Hemoglobin A1c Lactic Acid Calcium Phosphorus Magnesium Iron TIBC AST 86 H ALT 68 H Troponin T C-Reactive Protein Total Protein Albumin 2.6 L Triglycerides LDL Cholesterol Direct HDL Cholesterol Urine WBC (Auto) Vancomycin Trough Salicylates Acetaminophen % CD3 Cells % CD19 Cells Absolute CD19 Count Miscellaneous Test Crossmatch 09/11/18 09/11/18 09/11/18 01:10 06:03 09:00 WBC 13.7 H RBC 2.61 L Hgb 8.0 L Hct 24.6 L RDW 19.1 H Plt Count Lymph % (Auto) 6.1 L [place] % (Auto) Lymph # 0.8 L [place] # Seg Neutrophils % 87.7 H Seg Neuts % (Manual) Lymphocytes % (Manual) Nucleated RBC % Seg Neutrophils # 12.0 H Seg Neutrophils # Man Lymphocytes # (Manual) D-Dimer POC ABG pH POC ABG pCO2 POC ABG pO2 VBG pH Sodium Potassium Chloride Carbon Dioxide 33 H BUN 45 H Creatinine Glucose 147 H POC Glucose 180 H Hemoglobin A1c Lactic Acid Calcium Phosphorus Magnesium Iron TIBC AST ALT Troponin T C-Reactive Protein Total Protein Albumin Triglycerides LDL Cholesterol Direct HDL Cholesterol Urine WBC (Auto) Vancomycin Trough Salicylates Acetaminophen % CD3 Cells % CD19 Cells Absolute CD19 Count Miscellaneous Test Crossmatch 09/11/18 09/11/18 09/11/18 11:14 11:31 17:11 WBC RBC Hgb Hct RDW Plt Count Lymph % (Auto) [place] % (Auto) Lymph # [place] # Seg Neutrophils % Seg Neuts % (Manual) Lymphocytes % (Manual) Nucleated RBC % Seg Neutrophils # Seg Neutrophils # Man Lymphocytes # (Manual) D-Dimer POC ABG pH 7.498 H POC ABG pCO2 46.3 H POC ABG pO2 VBG pH Sodium Potassium Chloride Carbon Dioxide BUN Creatinine Glucose POC Glucose 163 H 202 H Hemoglobin A1c Lactic Acid Calcium Phosphorus Magnesium Iron TIBC AST ALT Troponin T C-Reactive Protein Total Protein Albumin Triglycerides LDL Cholesterol Direct HDL Cholesterol Urine WBC (Auto) Vancomycin Trough Salicylates Acetaminophen % CD3 Cells % CD19 Cells Absolute CD19 Count Miscellaneous Test Crossmatch 09/11/18 09/12/18 09/12/18 23:49 03:16 05:30 WBC RBC 2.36 L Hgb 7.3 L Hct 22.3 L RDW 18.4 H Plt Count Lymph % (Auto) 13.0 L [place] % (Auto) 9.3 H Lymph # 1.1 L [place] # Seg Neutrophils % 77.5 H Seg Neuts % (Manual) Lymphocytes % (Manual) Nucleated RBC % Seg Neutrophils # Seg Neutrophils # Man Lymphocytes # (Manual) D-Dimer POC ABG pH 7.517 H POC ABG pCO2 48.8 H POC ABG pO2 VBG pH Sodium Potassium Chloride Carbon Dioxide BUN Creatinine Glucose POC Glucose 163 H Hemoglobin A1c Lactic Acid Calcium Phosphorus Magnesium Iron TIBC AST ALT Troponin T C-Reactive Protein Total Protein Albumin Triglycerides LDL Cholesterol Direct HDL Cholesterol Urine WBC (Auto) Vancomycin Trough Salicylates Acetaminophen % CD3 Cells % CD19 Cells Absolute CD19 Count Miscellaneous Test Crossmatch 09/12/18 09/12/18 09/12/18 05:30 06:07 11:36 WBC RBC Hgb Hct RDW Plt Count Lymph % (Auto) [place] % (Auto) Lymph # [place] # Seg Neutrophils % Seg Neuts % (Manual) Lymphocytes % (Manual) Nucleated RBC % Seg Neutrophils # Seg Neutrophils # Man Lymphocytes # (Manual) D-Dimer POC ABG pH POC ABG pCO2 POC ABG pO2 VBG pH Sodium 148 H Potassium Chloride Carbon Dioxide 36 H BUN 46 H Creatinine Glucose 152 H POC Glucose 172 H 212 H Hemoglobin A1c Lactic Acid Calcium Phosphorus Magnesium Iron TIBC AST ALT Troponin T C-Reactive Protein Total Protein Albumin Triglycerides LDL Cholesterol Direct HDL Cholesterol Urine WBC (Auto) Vancomycin Trough Salicylates Acetaminophen % CD3 Cells % CD19 Cells Absolute CD19 Count Miscellaneous Test Crossmatch 09/12/18 09/12/18 09/13/18 18:02 23:19 03:55 WBC RBC Hgb Hct RDW Plt Count Lymph % (Auto) [place] % (Auto) Lymph # [place] # Seg Neutrophils % Seg Neuts % (Manual) Lymphocytes % (Manual) Nucleated RBC % Seg Neutrophils # Seg Neutrophils # Man Lymphocytes # (Manual) D-Dimer POC ABG pH 7.520 H POC ABG pCO2 48.0 H POC ABG pO2 58 L VBG pH Sodium Potassium Chloride Carbon Dioxide BUN Creatinine Glucose POC Glucose 142 H 161 H Hemoglobin A1c Lactic Acid Calcium Phosphorus Magnesium Iron TIBC AST ALT Troponin T C-Reactive Protein Total Protein Albumin Triglycerides LDL Cholesterol Direct HDL Cholesterol Urine WBC (Auto) Vancomycin Trough Salicylates Acetaminophen % CD3 Cells % CD19 Cells Absolute CD19 Count Miscellaneous Test Crossmatch 09/13/18 09/13/18 09/13/18 05:11 05:25 05:25 WBC RBC 2.38 L Hgb 7.6 L Hct 22.4 L RDW 18.6 H Plt Count Lymph % (Auto) [place] % (Auto) Lymph # [place] # Seg Neutrophils % Seg Neuts % (Manual) Lymphocytes % (Manual) Nucleated RBC % Seg Neutrophils # Seg Neutrophils # Man Lymphocytes # (Manual) D-Dimer POC ABG pH POC ABG pCO2 POC ABG pO2 VBG pH Sodium Potassium 3.2 L Chloride 97.5 L Carbon Dioxide 38 H BUN 38 H Creatinine 0.6 L Glucose 120 H POC Glucose 139 H Hemoglobin A1c Lactic Acid Calcium 8.1 L Phosphorus Magnesium Iron TIBC AST 120 H ALT 124 H Troponin T C-Reactive Protein Total Protein 5.9 L Albumin 2.6 L Triglycerides LDL Cholesterol Direct HDL Cholesterol Urine WBC (Auto) Vancomycin Trough Salicylates Acetaminophen % CD3 Cells % CD19 Cells Absolute CD19 Count Miscellaneous Test Crossmatch 09/13/18 09/13/18 09/13/18 11:31 17:46 23:23 WBC RBC Hgb Hct RDW Plt Count Lymph % (Auto) [place] % (Auto) Lymph # [place] # Seg Neutrophils % Seg Neuts % (Manual) Lymphocytes % (Manual) Nucleated RBC % Seg Neutrophils # Seg Neutrophils # Man Lymphocytes # (Manual) D-Dimer POC ABG pH POC ABG pCO2 POC ABG pO2 VBG pH Sodium Potassium Chloride Carbon Dioxide BUN Creatinine Glucose POC Glucose 160 H 145 H 135 H Hemoglobin A1c Lactic Acid Calcium Phosphorus Magnesium Iron TIBC AST ALT Troponin T C-Reactive Protein Total Protein Albumin Triglycerides LDL Cholesterol Direct HDL Cholesterol Urine WBC (Auto) Vancomycin Trough Salicylates Acetaminophen % CD3 Cells % CD19 Cells Absolute CD19 Count Miscellaneous Test Crossmatch 09/14/18 09/14/18 09/14/18 03:56 04:55 04:55 WBC RBC 2.28 L Hgb 7.1 L Hct 21.4 L RDW 18.2 H Plt Count Lymph % (Auto) [place] % (Auto) Lymph # [place] # Seg Neutrophils % 76.4 H Seg Neuts % (Manual) Lymphocytes % (Manual) Nucleated RBC % Seg Neutrophils # Seg Neutrophils # Man Lymphocytes # (Manual) D-Dimer POC ABG pH 7.503 H POC ABG pCO2 49.1 H POC ABG pO2 79 L VBG pH Sodium Potassium Chloride 97.7 L Carbon Dioxide 35 H BUN 32 H Creatinine 0.6 L Glucose 114 H POC Glucose Hemoglobin A1c Lactic Acid Calcium Phosphorus Magnesium Iron TIBC AST 60 H ALT 88 H Troponin T C-Reactive Protein Total Protein 5.6 L Albumin 2.2 L Triglycerides LDL Cholesterol Direct HDL Cholesterol Urine WBC (Auto) Vancomycin Trough Salicylates Acetaminophen % CD3 Cells % CD19 Cells Absolute CD19 Count Miscellaneous Test Crossmatch 09/14/18 09/14/18 09/14/18 05:14 12:00 12:27 WBC RBC Hgb Hct RDW Plt Count Lymph % (Auto) [place] % (Auto) Lymph # [place] # Seg Neutrophils % Seg Neuts % (Manual) Lymphocytes % (Manual) Nucleated RBC % Seg Neutrophils # Seg Neutrophils # Man Lymphocytes # (Manual) D-Dimer POC ABG pH POC ABG pCO2 POC ABG pO2 VBG pH Sodium Potassium Chloride Carbon Dioxide BUN Creatinine Glucose POC Glucose 115 H 125 H Hemoglobin A1c Lactic Acid Calcium Phosphorus Magnesium Iron TIBC AST ALT Troponin T C-Reactive Protein Total Protein Albumin Triglycerides LDL Cholesterol Direct HDL Cholesterol Urine WBC (Auto) Vancomycin Trough Salicylates Acetaminophen % CD3 Cells % CD19 Cells Absolute CD19 Count Miscellaneous Test Crossmatch See Detail 09/14/18 09/15/18 09/15/18 17:54 03:49 04:10 WBC RBC 2.46 L Hgb 7.7 L Hct 23.0 L RDW 18.6 H Plt Count Lymph % (Auto) [place] % (Auto) Lymph # 1.1 L [place] # Seg Neutrophils % 74.2 H Seg Neuts % (Manual) Lymphocytes % (Manual) Nucleated RBC % Seg Neutrophils # Seg Neutrophils # Man Lymphocytes # (Manual) D-Dimer POC ABG pH POC ABG pCO2 58.2 H POC ABG pO2 VBG pH Sodium Potassium Chloride Carbon Dioxide BUN Creatinine Glucose POC Glucose 138 H Hemoglobin A1c Lactic Acid Calcium Phosphorus Magnesium Iron TIBC AST ALT Troponin T C-Reactive Protein Total Protein Albumin Triglycerides LDL Cholesterol Direct HDL Cholesterol Urine WBC (Auto) Vancomycin Trough Salicylates Acetaminophen % CD3 Cells % CD19 Cells Absolute CD19 Count Miscellaneous Test Crossmatch 09/15/18 09/15/18 09/15/18 04:10 11:36 11:36 WBC RBC Hgb Hct RDW Plt Count Lymph % (Auto) [place] % (Auto) Lymph # [place] # Seg Neutrophils % Seg Neuts % (Manual) Lymphocytes % (Manual) Nucleated RBC % Seg Neutrophils # Seg Neutrophils # Man Lymphocytes # (Manual) D-Dimer POC ABG pH POC ABG pCO2 53.5 H POC ABG pO2 67 L VBG pH Sodium Potassium Chloride Carbon Dioxide 35 H BUN 21 H Creatinine Glucose POC Glucose 108 H Hemoglobin A1c Lactic Acid Calcium 7.9 L Phosphorus Magnesium Iron TIBC AST ALT Troponin T C-Reactive Protein Total Protein Albumin Triglycerides LDL Cholesterol Direct HDL Cholesterol Urine WBC (Auto) Vancomycin Trough Salicylates Acetaminophen % CD3 Cells % CD19 Cells Absolute CD19 Count Miscellaneous Test Crossmatch 09/16/18 09/16/18 09/16/18 01:16 04:25 11:30 WBC RBC 2.77 L Hgb 8.5 L Hct 25.6 L RDW 17.9 H Plt Count Lymph % (Auto) [place] % (Auto) Lymph # [place] # Seg Neutrophils % Seg Neuts % (Manual) Lymphocytes % (Manual) Nucleated RBC % Seg Neutrophils # Seg Neutrophils # Man Lymphocytes # (Manual) D-Dimer POC ABG pH 7.489 H POC ABG pCO2 47.6 H POC ABG pO2 62 L VBG pH Sodium Potassium Chloride Carbon Dioxide BUN Creatinine Glucose POC Glucose 108 H Hemoglobin A1c Lactic Acid Calcium Phosphorus Magnesium Iron TIBC AST ALT Troponin T C-Reactive Protein Total Protein Albumin Triglycerides LDL Cholesterol Direct HDL Cholesterol Urine WBC (Auto) Vancomycin Trough Salicylates Acetaminophen % CD3 Cells % CD19 Cells Absolute CD19 Count Miscellaneous Test Crossmatch 09/16/18 09/16/18 09/17/18 11:30 23:07 04:22 WBC RBC Hgb Hct RDW Plt Count Lymph % (Auto) [place] % (Auto) Lymph # [place] # Seg Neutrophils % Seg Neuts % (Manual) Lymphocytes % (Manual) Nucleated RBC % Seg Neutrophils # Seg Neutrophils # Man Lymphocytes # (Manual) D-Dimer POC ABG pH 7.576 H POC ABG pCO2 POC ABG pO2 58 L VBG pH Sodium Potassium 3.2 L Chloride 96.6 L Carbon Dioxide 34 H BUN Creatinine Glucose 128 H POC Glucose 147 H Hemoglobin A1c Lactic Acid Calcium Phosphorus Magnesium Iron TIBC AST ALT Troponin T C-Reactive Protein Total Protein Albumin Triglycerides LDL Cholesterol Direct HDL Cholesterol Urine WBC (Auto) Vancomycin Trough Salicylates Acetaminophen % CD3 Cells % CD19 Cells Absolute CD19 Count Miscellaneous Test Crossmatch 09/17/18 09/17/18 09/17/18 05:50 10:15 14:59 WBC RBC Hgb Hct RDW Plt Count Lymph % (Auto) [place] % (Auto) Lymph # [place] # Seg Neutrophils % Seg Neuts % (Manual) Lymphocytes % (Manual) Nucleated RBC % Seg Neutrophils # Seg Neutrophils # Man Lymphocytes # (Manual) D-Dimer POC ABG pH POC ABG pCO2 POC ABG pO2 VBG pH Sodium Potassium 2.6 L* Chloride 96.3 L Carbon Dioxide 33 H BUN Creatinine Glucose 151 H POC Glucose 138 H 151 H Hemoglobin A1c Lactic Acid Calcium Phosphorus Magnesium Iron TIBC AST ALT Troponin T C-Reactive Protein Total Protein Albumin Triglycerides LDL Cholesterol Direct HDL Cholesterol Urine WBC (Auto) Vancomycin Trough Salicylates Acetaminophen % CD3 Cells % CD19 Cells Absolute CD19 Count Miscellaneous Test Crossmatch 09/17/18 09/17/18 09/18/18 17:51 Unknown 00:11 WBC RBC Hgb Hct RDW Plt Count Lymph % (Auto) [place] % (Auto) Lymph # [place] # Seg Neutrophils % Seg Neuts % (Manual) Lymphocytes % (Manual) Nucleated RBC % Seg Neutrophils # Seg Neutrophils # Man Lymphocytes # (Manual) D-Dimer POC ABG pH POC ABG pCO2 POC ABG pO2 VBG pH Sodium Potassium 2.7 L* Chloride 97.5 L Carbon Dioxide 32 H BUN Creatinine Glucose 142 H POC Glucose 149 H 128 H Hemoglobin A1c Lactic Acid Calcium Phosphorus Magnesium Iron TIBC AST ALT Troponin T C-Reactive Protein Total Protein Albumin Triglycerides LDL Cholesterol Direct HDL Cholesterol Urine WBC (Auto) Vancomycin Trough Salicylates Acetaminophen % CD3 Cells % CD19 Cells Absolute CD19 Count Miscellaneous Test Crossmatch 09/18/18 09/18/18 09/18/18 04:20 04:20 04:28 WBC RBC 2.94 L Hgb 9.0 L Hct 27.2 L RDW 17.7 H Plt Count Lymph % (Auto) [place] % (Auto) 12.1 H Lymph # 1.0 L [place] # Seg Neutrophils % 70.2 H Seg Neuts % (Manual) Lymphocytes % (Manual) Nucleated RBC % Seg Neutrophils # Seg Neutrophils # Man Lymphocytes # (Manual) D-Dimer POC ABG pH 7.563 H POC ABG pCO2 POC ABG pO2 VBG pH Sodium Potassium 3.0 L Chloride Carbon Dioxide 33 H BUN Creatinine Glucose 133 H POC Glucose Hemoglobin A1c Lactic Acid Calcium Phosphorus Magnesium Iron TIBC AST ALT Troponin T C-Reactive Protein Total Protein Albumin Triglycerides LDL Cholesterol Direct HDL Cholesterol Urine WBC (Auto) Vancomycin Trough Salicylates Acetaminophen % CD3 Cells % CD19 Cells Absolute CD19 Count Miscellaneous Test Crossmatch 09/18/18 06:19 WBC RBC Hgb Hct RDW Plt Count Lymph % (Auto) [place] % (Auto) Lymph # [place] # Seg Neutrophils % Seg Neuts % (Manual) Lymphocytes % (Manual) Nucleated RBC % Seg Neutrophils # Seg Neutrophils # Man Lymphocytes # (Manual) D-Dimer POC ABG pH POC ABG pCO2 POC ABG pO2 VBG pH Sodium Potassium Chloride Carbon Dioxide BUN Creatinine Glucose POC Glucose 140 H Hemoglobin A1c Lactic Acid Calcium Phosphorus Magnesium Iron TIBC AST ALT Troponin T C-Reactive Protein Total Protein Albumin Triglycerides LDL Cholesterol Direct HDL Cholesterol Urine WBC (Auto) Vancomycin Trough Salicylates Acetaminophen % CD3 Cells % CD19 Cells Absolute CD19 Count Miscellaneous Test Crossmatch Chest x-ray: image reviewed (persistent bilateral pulmonary infiltrates) Allied health notes reviewed: RT (Wean down FIO2 to 60% then start weaning PEEP)
[2018-09-18] MEDS ORDERED: K-DUR PO ONE (12:00)
--- NOTE | 2018-09-18 12:25 | Progress Note ---
Assessment and Plan Cultures: 08/15/2018 blood culture: Camyrn glabrata 1 of 4 08/15/2018 sputum culture: MSSA and Escherichia coli, wade susceptible 08/18/2018 blood culture: no growth 08/18/2018 urine culture: neg 08/22/2018 blood culture: no growth 08/25/2018 blood culture: no growth 09/02/2018 BAL cultures: resp almaz. Fungal and AFB pending: No growth thus far. 09/04/2018 blood culture: no growth thus far 09/04/2018 trach aspirate: no growth Fungitell was high (consistent with Candidemia), Aspergillus galactomannan negative. 09/13/2018 blood culture: no growth A/P: 68-year-old female with COPD, arthritis, history of multiple spinal surgeries was brought to the emergency room on 08/15/2018 with altered mental status: 1) Sepsis with septic shock: resolved. Continues with intermittent fevers. Et iology unclear. Blood cultures 09/13/2018 negative. Has indwelling PICC and Dodge. ?sinusitis, from prolonged intubation. Was noted on earlier head CT. ?UTI. Recent CT abd showed new bilateral effusions, anasarca, and decreased bilateral consolidation. 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 Patient without any history of indwelling PICC line, TPN or immunocompromised status. reported severe explosive diarrhea, N/V before admission after taken 4 days of amoxicillin for dental implant on 07/29/2018 and had a EGD / colonoscopy on 08/08/[address] [facility] [address] Alcantara. I reviewed report - mild chronic gastritis, focal intestinal metaplasia, squamocolumnar mucosa with mild reflux-type changes, and tubular adenoma. -s/p fluconazole 800 mg loading dose then micafungin, s/p amphotericin D6 on 08/26 -serum Crypto negative. -08/15/2018 blood culture: Camryn glabrata -08/18/2018 blood culture: no growth -CTA chest showed limited study due to respiratory motion artifact. No evidence of pulmonary embolism. Abnormal bilateral lung consolidation which may represent pulmonary edema or pneumonia. Mild cardiomegaly. Indeterminant mediastinal lymph nodes. -CT abdomen showed extensive bilateral lower lobe pulmonary infiltrates, rectal tube and Dodge catheter noted. NG tube at gastric antrum. Left hip prosthesis Extensive degenerative changes noted lumbar spine -TTE EF 25-30% no vegetations -HIV neg/ CD4 1004 -reviewed CT chest abd done 01/05/2019 showed cholecystectomy, mild fatty liver, postoperative changes of lumbar laminectomy with non specific fluid, 9 mm LLL pulmonary nodule which was compared to previous CT and was stable. -CRP 10-->5 3) Acute renal failure: On admission: improved. 4) Acute respiratory failure: Back on the vent. Recently completed pneumonia treatment. WBC up and low grade fever. Underwent bronch + BAL on 09/02/2018. Cultures with no growth thus far. On abx. CTA chest 09/06/2018 negative for PE, bilateral air space disease, no air bronchograms as such. High oxygen requirements, ?ARDS v/s fluid overload. 5) Right maxillary sinusitis: received empiric abx. 6) Acute encephalopathy: Likely multifactorial. CT head unremarkable for acute intracranial process. 7) Cardiomyopathy, LVEF 25-30% this admission. 8) H/O left hip prosthesis ? XR no effusion. CT with no enhancement 9) Left leg DVT: on anticoagulation. Hematology following. 10) Mild transaminitis: monitor for now. RUQ US unremarkable. Recs: stopped Zosyn today, Day 5 of therapy follow up procalcitonin awaiting PEG and then transfer to LTAC Dr. Leonard marina tomorrow. Brando Pradhan MD [facility] C: [phone] O: [phone] F: [phone] Subjective Date of service: 09/18/18 Principal diagnosis: Acute hypoxemic hypercapnic Resp failure; AE-COPD; Acute kidney injury Interval history: Had 1 fever spike. Otherwise, remains hemodynamically stable. On the vent, via trach. Getting trach collar trials. Objective - Exam Narrative Exam: Physical Exam: Constitutional: awake, no distress Head, Ears, Nose: Normocephalic, atraumatic. External ears, nose normal Eyes: Conjunctivae/corneas clear. No icterus. No ptosis. Neck: trach + Oral: no ulcers Cardiovascular: S1, S2 normal. Respiratory: clear b/l, AE equal bilaterally GI: Soft, non tender, bowel sounds normal. No peritoneal signs. Musculoskeletal: pedal edema bilaterally. Skin: No rash or abscess Hem/Lymphatic: No palpable cervical or supraclavicular nodes. No lymphangitis Psych: calm, no agitation Neurological: awake, intubated, obeying basic commands - Constitutional Vitals: Vital Signs Temp Pulse Resp BP Pulse Ox 100 F H 77 27 H 150/64 97 09/18/18 04:00 09/18/18 11:43 09/18/18 11:00 09/18/18 11:43 09/18/18 11:43 Temperature -Last 24 Hours Temperature 100 F Temperature 102.6 F Temperature 99.6 F Temperature 99.5 F Temperature 99.6 F - Labs CBC & Chem 7: 09/18/18 04:20 09/18/18 04:20 Labs: Abnormal lab results 09/17/18 09/17/18 09/17/18 Range/Units 14:59 17:51 Unknown RBC (3.65-5.03) M/mm3 Hgb (10.1-14.3) gm/dl Hct (30.3-42.9) % RDW (13.2-15.2) % [place] % (Auto) (0.0-7.3) % Lymph # (1.2-5.4) K/mm3 Seg Neutrophils % (40.0-70.0) % POC ABG pH (7.35-7.45) Potassium 2.7 L* (3.6-5.0) mmol/L Chloride 97.5 L (98-107) mmol/L Carbon Dioxide 32 H (22-30) mmol/L Glucose 142 H (65-100) mg/dL POC Glucose 151 H 149 H (70-105) 09/18/18 09/18/18 09/18/18 Range/Units 00:11 04:20 04:20 RBC 2.94 L (3.65-5.03) M/mm3 Hgb 9.0 L (10.1-14.3) gm/dl Hct 27.2 L (30.3-42.9) % RDW 17.7 H (13.2-15.2) % [place] % (Auto) 12.1 H (0.0-7.3) % Lymph # 1.0 L (1.2-5.4) K/mm3 Seg Neutrophils % 70.2 H (40.0-70.0) % POC ABG pH (7.35-7.45) Potassium 3.0 L (3.6-5.0) mmol/L Chloride (98-107) mmol/L Carbon Dioxide 33 H (22-30) mmol/L Glucose 133 H (65-100) mg/dL POC Glucose 128 H (70-105) 09/18/18 09/18/18 Range/Units 04:28 06:19 RBC (3.65-5.03) M/mm3 Hgb (10.1-14.3) gm/dl Hct (30.3-42.9) % RDW (13.2-15.2) % [place] % (Auto) (0.0-7.3) % Lymph # (1.2-5.4) K/mm3 Seg Neutrophils % (40.0-70.0) % POC ABG pH 7.563 H (7.35-7.45) Potassium (3.6-5.0) mmol/L Chloride (98-107) mmol/L Carbon Dioxide (22-30) mmol/L Glucose (65-100) mg/dL POC Glucose 140 H (70-105) - Imaging and cardiology Chest x-ray: report reviewed, image reviewed (no interval change noted.)
[2018-09-18] MEDS ORDERED: K-DUR PO NR (16:00)
[2018-09-18] MEDS: DIAMOX IV SCH (22:20)
[2018-09-19] MEDS: HumaLOG SUB-Q SCH ×2 (00:17→19:12)
[2018-09-19] MEDS: DILAUDID PO SCH ×4 (00:25→18:29)
[2018-09-19] MEDS: APRESOLINE IV PRN (02:27)
[2018-09-19] MEDS: VERSED IV PRN (03:01)
[2018-09-19] MEDS: DUONEB *Not for PRN Use IH SCH ×4 (03:23→19:16)
[2018-09-19 06:24] LABS: BUN/Creatinine Ratio 27; Blood Urea Nitrogen 16 mg/dL (7-17); Hemolysis Index 0
[2018-09-19] MEDS: APRESOLINE PO SCH ×3 (06:48→22:55)
--- NOTE | 2018-09-19 07:26 | Hem/Onc Progress Note ---
Assessment and Plan #. Bilateral posterior tibial and peroneal vein deep venous thrombosis, left leg edema. Arixtra was being used. #. h/o Thrombocytopenia. The patient was on heparin-based treatment. Later fondaparinux. HIT negative, plt now better #. Anemia. At admission, hemoglobin was normal. The patient received blood transfusion. deficiency workup low iron - Ferritin - b12 - folate normal . There may be a bleeding component. s/p Iv iron trial #. Pulmonary embolism study is negative. #. h/o Camryn infection. #. Chronic obstructive pulmonary disease. #. History of renal failure. Nephrology following. #. Respiratory failure, on ventilator. History of cardiomyopathy. - s/p trach 09/19 - pt on arixtra for leg dvt. candidate for IVC filter eval as pt has been anemic needing transfusion peg tube - planned for today trach+ - Patient Problems (1) Thrombocytopenia Current Visit: Yes Status: Acute (2) DVT (deep venous thrombosis) Current Visit: Yes Status: Acute (3) Anemia Current Visit: Yes Status: Acute Subjective Date of service: 09/19/18 Principal diagnosis: dvt and anemia Objective - Constitutional Vitals: Last Vital Signs Temp 99.0 F 09/19/18 04:00 Pulse 75 09/19/18 06:48 Resp 28 H 09/19/18 06:01 BP 143/62 09/19/18 06:48 Pulse Ox 96 09/19/18 06:01 General appearance: no acute distress Performance status: 4-completely disabled - EENT Eyes: EOM intact ENT: hearing intact Lymph node exam: negative cervical - Neck Neck: other (trach) - Respiratory Respiratory effort: Positive: normal Respiratory: bilateral: diminished - Cardiovascular Heart Sounds: Present: S1 & S2 Extremity abnormal: edema - Gastrointestinal General gastrointestinal: Present: soft, non-tender Rectal Exam: deferred - Genitourinary Female genitourinary: Present: deferred - Integumentary Integumentary: warm - Musculoskeletal Musculoskeletal: generalized weakness - Neurologic Neurologic: moves all extremities (minimally) - Labs Lab Results: Laboratory Results - last 24 hr 09/15/18 09/17/18 09/17/18 11:35 14:59 17:51 POC ABG pH POC ABG pCO2 POC ABG pO2 POC ABG HCO3 POC ABG Total CO2 POC ABG O2 Sat POC ABG Base Excess FiO2 Sodium Potassium Chloride Carbon Dioxide Anion Gap BUN Creatinine Estimated GFR BUN/Creatinine Ratio Glucose POC Glucose 151 H 149 H Calcium Magnesium Miscellaneous Test Flexitest 1 09/18/18 09/18/18 09/19/18 04:20 14:45 00:13 POC ABG pH POC ABG pCO2 POC ABG pO2 POC ABG HCO3 POC ABG Total CO2 POC ABG O2 Sat POC ABG Base Excess FiO2 Sodium Potassium Chloride Carbon Dioxide Anion Gap BUN Creatinine Estimated GFR BUN/Creatinine Ratio Glucose POC Glucose 164 H 111 H Calcium Magnesium 1.70 Miscellaneous Test 09/19/18 09/19/18 09/19/18 03:38 05:08 05:20 POC ABG pH 7.502 H POC ABG pCO2 34.6 L POC ABG pO2 73 L POC ABG HCO3 27.1 POC ABG Total CO2 28 POC ABG O2 Sat 96 POC ABG Base Excess 4 FiO2 40 Sodium 141 Potassium 2.7 L* Chloride 100.7 Carbon Dioxide 27 Anion Gap 16 BUN 16 Creatinine 0.6 L Estimated GFR > 60 BUN/Creatinine Ratio 27 Glucose 119 H POC Glucose 128 H Calcium 9.0 Magnesium Miscellaneous Test Medications & Allergies - Medications Allergies/Adverse Reactions: Allergies No Known Allergies Allergy (Unverified 08/15/18 16:49) Home Medications: Home Medications Medication Instructions Recorded Confirmed Last Taken Type Carvedilol 6.25 mg PO BID 08/15/18 08/15/18 Unknown History DULoxetine 60 mg PO QDAY 08/15/18 08/15/18 Unknown History Gabapentin 600 mg PO Q6HR PRN 08/15/18 08/15/18 Unknown History Methylphenidate 5 mg PO TID 08/15/18 08/15/18 Unknown History Morphabond ER 60 mg PO Q12HR 08/15/18 08/15/18 Unknown History Pravastatin Sodium 10 mg PO QDAY 08/15/18 08/15/18 Unknown History Tizanidine HCl 4 mg PO Q12HR 08/15/18 08/15/18 Unknown History oxyCODONE /ACETAMINOPHEN 7.5 - 325 mg PO Q8HR 08/15/18 08/15/18 Unknown History ALBUTEROL Inhaler(NF) 90 mcg IH TID 08/29/18 08/29/18 Unknown History Omeprazole-Bicarb 40-1,100 Cap 40 mg PO DAILY 08/29/18 08/29/18 Unknown History Active Medications: Generic Name Dose Route Start Last Admin Trade Name Freq PRN Reason Stop Dose Admin Acetaminophen 650 mg 08/15/18 22:12 09/18/18 00:26 Tylenol PO 650 mg Q4H PRN Administration Pain MILD(1-3)/Fever >100.5/MONDRAGON Acetazolamide 250 mg 09/18/18 22:00 09/18/18 22:20 Diamox IV 09/21/18 21:59 250 mg QHS LAMAR Administration Albuterol 2.5 mg 08/17/18 17:00 Proventil IH Q3HRT PRN Shortness Of Breath Albuterol/Ipratropium 1 ampul 08/20/18 14:00 09/19/18 03:23 Duoneb *Not For Prn Use* IH 1 ampul Q6HRT LAMAR Administration Lipase/Protease/Amylase 1 each 09/17/18 09:06 Pancresam Elizabeth 10,500 Unit FEEDTUBE PRN PRN For Clogged Feeding Tube Arformoterol Tartrate 15 mcg 08/18/18 20:00 09/18/18 20:21 Brovana Nebu IH 15 mcg Q12HRT LAMAR Administration Budesonide 0.5 mg 08/18/18 20:00 09/18/18 20:21 Pulmicort IH 0.5 mg Q12HRT LAMAR Administration Carvedilol 3.125 mg 08/26/18 15:19 09/18/18 22:20 Coreg PO 3.125 mg BID LAMAR Administration Clonidine HCl 0.2 mg 09/25/18 10:00 Catapres-Tts Patch TD Pearson LAMAR Famotidine 20 mg 09/05/18 10:00 09/18/18 22:20 Pepcid PO 20 mg BID LAMAR Administration Fondaparinux 7.5 mg 09/07/18 10:00 09/18/18 10:53 Arixtra SUB-Q 7.5 mg DAILY LAMAR Administration Furosemide 20 mg 09/18/18 12:00 Lasix IV QDAY LAMAR Hydralazine HCl 10 mg 08/19/18 13:59 09/19/18 02:27 Apresoline IV 10 mg Q3H PRN Administration Hydralazine HCl 25 mg 09/01/18 14:00 09/19/18 06:48 Apresoline PO Not Given Q8HR LAMAR Hydromorphone HCl 2 mg 09/06/18 12:00 09/19/18 06:47 Dilaudid PO Not Given Q6HR [facility] Hydrophilic Ointment 1 applic 08/15/18 21:55 09/01/18 09:07 Vaseline Lip Therapy TP 1 applic Q2HR PRN Administration Dry Lips Fentanyl Citrate 2,000 mcg in 100 mls @ 4.765 mls/hr 09/02/18 11:00 09/16/18 07:40 Fentanyl Drip Premix IV Infused TITR [facility] Titration Protocol 1 MCG/KG/HR Insulin Human Lispro 0 unit 09/04/18 18:00 09/19/18 00:17 Humalog SUB-Q Not Given Q6HR [facility] Protocol Metoclopramide HCl 5 mg 08/15/18 22:50 09/17/18 10:48 Reglan IV 5 mg Q6H PRN Administration Nausea And Vomiting Midazolam HCl 1 mg 09/07/18 09:23 09/19/18 03:01 Versed IV 1 mg Q4H PRN Administration AGITATION Ondansetron HCl 4 mg 08/15/18 22:12 08/31/18 17:52 Zofran IV 4 mg Q8H PRN Administration Nausea And Vomiting Quetiapine Fumarate 200 mg 09/04/18 15:00 09/18/18 22:20 Seroquel PO 200 mg BID [facility] Administration Senna/Docusate Sodium 2 tab 09/06/18 11:00 09/18/18 22:20 Senokot S PO 2 tab BID LAMAR Administration Simple Syrup 15 ml 09/17/18 09:06 Simple Syrup FEEDTUBE PRN PRN Hypoglycemia Simple Syrup 30 ml 09/17/18 09:06 Simple Syrup FEEDTUBE PRN PRN Hypoglycemia Sodium Bicarbonate 325 mg 09/17/18 09:06 Sodium Bicarbonate FEEDTUBE PRN PRN For Clogged Feeding Tube Sodium Chloride 10 ml 08/15/18 22:12 09/17/18 21:51 Sodium Chloride Flush Syringe 10 Ml IV 10 ml PRN PRN Administration LINE FLUSH
[2018-09-19] MEDS: BROVANA NEBU IH SCH ×2 (08:19→19:16)
[2018-09-19] MEDS: PULMICORT IH SCH ×2 (08:19→19:16)
[2018-09-19] MEDS ORDERED: MAGNESIUM SULFATE 4GM/100ML 4 GM/100 ML BAG IV ONE (09:00)
[2018-09-19] MEDS ORDERED: KCL 10MEQ/100ML 10 MEQ/100 ML BAG IV SCH (10:00)
[2018-09-19] MEDS: COREG PO SCH ×2 (10:13→21:08)
[2018-09-19] MEDS: SENOKOT S PO SCH (10:15)
[2018-09-19] MEDS: ARIXTRA SUB-Q SCH (10:15)
[2018-09-19] MEDS: PEPCID PO SCH ×2 (10:16→21:08)
[2018-09-19] MEDS: LASIX IV SCH ×2 (10:19→10:21)
[2018-09-19] MEDS: KCL 20MEQ/100ML 20 MEQ/100 ML BAG IV SCH ×5 (10:25→15:13)
--- NOTE | 2018-09-19 11:09 | Progress Note ---
Assessment and Plan Cultures: 08/15/2018 blood culture: Camryn glabrata 1 of 4 08/15/2018 sputum culture: MSSA and Escherichia coli, wade susceptible 08/18/2018 blood culture: no growth 08/18/2018 urine culture: neg 08/22/2018 blood culture: no growth 08/25/2018 blood culture: no growth 09/02/2018 BAL cultures: resp almaz. Fungal and AFB pending: No growth thus far. 09/04/2018 blood culture: no growth thus far 09/04/2018 trach aspirate: no growth Fungitell was high (consistent with Candidemia), Aspergillus galactomannan negative. 09/13/2018 blood culture: no growth A/P: 68-year-old female with COPD, arthritis, history of multiple spinal surgeries was brought to the emergency room on 08/15/2018 with altered mental status: 1) Sepsis with septic shock: new fever 102.6 on 09/18. New fever 09/13 and 09/14. Etiology unclear. Blood cultures 09/13/2018 negative. Has indwelling PICC and Manrique. Now with persistent diarrhea. ?CAUTI, ?CLABSI ? C diff ?sinusitis. Recent CT abd showed new bilateral effusions, anasarca, and decreased bilateral consolidation. 2) Recent Camryn glabrata fungemia: resolved. Etiology remains unclear. Patient without any history of indwelling PICC line, TPN or immunocompromised status. reported severe explosive diarrhea, N/V before admission after taken 4 days of amoxicillin for dental implant on 07/29/2018 and had a EGD / colonoscopy on 08/08/[address] [place] [address] Alcantara. I reviewed report - mild chronic gastritis, focal intestinal metaplasia, squamocolumnar mucosa with mild reflux-type changes, and tubular adenoma. -s/p fluconazole 800 mg loading dose then micafungin, s/p amphotericin D6 on 08/26 -serum Crypto negative. -08/15/2018 blood culture: Camryn glabrata -08/18/2018 blood culture: no growth -CTA chest showed limited study due to respiratory motion artifact. No evidence of pulmonary embolism. Abnormal bilateral lung consolidation which may represent pulmonary edema or pneumonia. Mild cardiomegaly. Indeterminant mediastinal lymph nodes. -CT abdomen showed extensive bilateral lower lobe pulmonary infiltrates, rectal tube and Manrique catheter noted. NG tube at gastric antrum. Left hip prosthesis Extensive degenerative changes noted lumbar spine -TTE EF 25-30% no vegetations -HIV neg/ CD4 1004 -reviewed CT chest abd done 01/05/2019 showed cholecystectomy, mild fatty liver, postoperative changes of lumbar laminectomy with non specific fluid, 9 mm LLL pulmonary nodule which was compared to previous CT and was stable. -CRP 10-->5 3) Acute renal failure: On admission: improved. 4) Acute respiratory failure: Back on the vent. Recently completed pneumonia treatment. Underwent bronch + BAL on 09/02/2018. Cultures with no growth thus far. On abx. CTA chest 09/06/2018 negative for PE, bilateral air space disease, no air bronchograms as such. 5) Right maxillary sinusitis: received empiric abx. 6) Acute encephalopathy: Likely multifactorial. CT head unremarkable for acute intracranial process. 7) Cardiomyopathy, LVEF 25-30% this admission. 8) H/O left hip prosthesis ? XR no effusion. CT with no enhancement 9) Left leg DVT: on anticoagulation. Hematology following. 10) Mild transaminitis: monitor for now. RUQ US unremarkable. 11) Diahrrea: ? r/o C diff 12) Urinary retention: manrique was exchanged during weekend, patient had retention again so it could not be removed. Recs: send stool for C diff contact isolation until C diff is r/o start po vancomycin for now until C diff is r/o consider removing NGT send repeat blood cultures, UA and UC remove PICC line, ok to place midline to have PEG by IR hopefully will remove NGT soon Will follow Yasmin Alvarez MD Infectious Diseases [employer] [facility] ([facility]) M [phone] O [phone] Subjective Date of service: 09/19/18 Principal diagnosis: Acute hypoxemic hypercapnic Resp failure; AE-COPD; Acute kidney injury Interval history: Remains on the vent via trach fiO2 40%, p 6, alert, following commands, temp 102.6, noted diarrhea ROS: unable to obtain Objective - Exam Narrative Exam: Constitutional: alert follows commands, intubated fiO2 40%, p6 Head, Ears, Nose: Normocephalic, atraumatic. External ears, nose normal Eyes: Conjunctivae/corneas clear. No icterus. No ptosis. Neck:+trach no secretion Oral: clear OP Cardiovascular: RRR Respiratory: CTA gonzalez GI: Soft, non-tender; bowel sounds normal. No peritoneal signs Musculoskeletal: gonzalez arm edema Skin: No rash or abscess Hem/Lymphatic: No palpable cervical or supraclavicular nodes. No lymphangitis Psych: no agitation Neurological: alert follows commands Rectal tube with diarrhea contaminating manrique - Constitutional Vitals: Vital Signs Temp Pulse Resp BP Pulse Ox 99.0 F 78 27 H 158/42 97 09/19/18 04:00 09/19/18 10:13 09/19/18 09:01 09/19/18 10:13 09/19/18 09:01 Temperature -Last 24 Hours Temperature 99.0 F Temperature 99.6 F Temperature 99.6 F Temperature 98.6 F - Labs CBC & Chem 7: 09/18/18 04:20 09/19/18 05:20 Labs: Abnormal lab results 09/18/18 09/19/18 09/19/18 Range/Units 14:45 00:13 03:38 POC ABG pH (7.35-7.45) POC ABG pCO2 (35-45) POC ABG pO2 (80-105) Potassium (3.6-5.0) mmol/L Creatinine (0.7-1.2) mg/dL Glucose (65-100) mg/dL POC Glucose 164 H 111 H 128 H (70-105) 09/19/18 09/19/18 Range/Units 05:08 05:20 POC ABG pH 7.502 H (7.35-7.45) POC ABG pCO2 34.6 L (35-45) POC ABG pO2 73 L (80-105) Potassium 2.7 L* (3.6-5.0) mmol/L Creatinine 0.6 L (0.7-1.2) mg/dL Glucose 119 H (65-100) mg/dL POC Glucose (70-105)
--- NOTE | 2018-09-19 13:32 | Progress Note ---
Assessment and Plan Acute hypoxic-hypercapnic respiratory failure on MVS Acute COPD exacerbation DVT NSTEMI Acute encephalopathy (toxic-metabolic) Thrombocytopenia Hypokalemia Acute kidney injury h/o Chronic Narcotic Dependence Aspiration pneumonia/CAP Hypokalemia GNR in tracheal aspirate Hypernatremia - to go to I.R. for PEG placement today - pull PICC and get midline - reduce set rate on MVS to 12/min - continue lasix at 20 mg IV daily - also complete diamox 250 mg IV daily X 1 more dose - continue daily SAT's & SBT's - continue prn analgesia - Continue to Wean supplemental oxygen to keep O2 sats > 90% - follow clinically s/p AB's courses - continue accuchecks q6h and target glycemic control for BG 140 - 180 mg/dl acutely - continue seroquel but begin slow taper re: lethargy - CD4 count WNL - HIT assay negative but again developed thrombocytopenia with re-challenge so on Arixtra treatment dose for DVT - nephrology input appreciated - cardiology input appreciated - continue brovana & pulmicort re: COPD - continue lung protective strategies - Daily ABGs/CXR for now - VAP bundle addressed - continue to avoid benzodiazepines, use high dose fentanyl for agitation and analgesia - continue stress ulcer prophylaxis - continue VTE prophylaxis - continue enteral Nutrition as tolerated - VAP bundle addressed - Continue bronchodilators with pulmonary hygiene per RT - Maintenance of sleep -wake cycle - Mobility protocol for pressure ulcer prophylaxis as tolerated by hemodynamics - Influenza and pneumonia vaccination per protocol ..care plan discussed at length with at the bedside ... re-evaluate in am & prn PROGNOSIS :FAIR CONDITION: CRITICAL CODE STATUS: FULL CODE The high probability of a clinically significant, sudden or life-threatening deterioration of the [respiratory, neurology, renal] system(s) required my full and direct attention, intervention and personal management. The aggregate critical care time was [32] minutes without overlap. Time includes spent on; [x] Data Review and interpretation [x] Patient assessment and monitoring of vital signs [x] Documentation [x] Medication orders and management Subjective Date of service: 09/19/18 Principal diagnosis: Acute hypoxemic hypercapnic Resp failure; AE-COPD; Acute kidney injury Interval history: Patient is seen today for: Acute hypoxemic - hypercapnic respiratory failure on MVS; Acute COPD exacerbation; Acute encephalopathy (toxic-metabolic); Hypokalemia; Acute kidney injury Seen and examined at bedside; 24hour events reviewed; nursing and respiratory care staff consulted; no adverse overnight events reported to me; remains on MVS; on PSV and tolerating much better today; good diuresis with IV lasix and Diamox; lethargic today though but without new focal deficits Objective Vital Signs - 12hr 09/19/18 09/19/18 09/19/18 01:30 01:45 02:00 Temperature Pulse Rate 74 71 73 Pulse Rate [ Anterior Bilateral] Pulse Rate [ From Monitor] Respiratory 18 16 19 Rate Respiratory Rate [Anterior Bilateral] Blood Pressure 153/78 153/78 173/87 O2 Sat by Pulse 96 98 96 Oximetry O2 Sat by Pulse Oximetry [ Assessment] 09/19/18 09/19/18 09/19/18 02:05 02:15 02:27 Temperature Pulse Rate 71 73 Pulse Rate [ Anterior Bilateral] Pulse Rate [ 73 From Monitor] Respiratory 19 17 Rate Respiratory Rate [Anterior Bilateral] Blood Pressure 173/87 170/80 O2 Sat by Pulse 95 98 Oximetry O2 Sat by Pulse Oximetry [ Assessment] 09/19/18 09/19/18 09/19/18 02:31 02:45 02:50 Temperature Pulse Rate 70 96 H Pulse Rate [ Anterior Bilateral] Pulse Rate [ From Monitor] Respiratory 19 43 H Rate Respiratory Rate [Anterior Bilateral] Blood Pressure 172/74 172/74 O2 Sat by Pulse 98 94 Oximetry O2 Sat by Pulse 92 Oximetry [ Assessment] 09/19/18 09/19/18 09/19/18 03:00 03:01 03:10 Temperature Pulse Rate 102 H Pulse Rate [ 89 92 H Anterior Bilateral] Pulse Rate [ From Monitor] Respiratory 42 H Rate Respiratory 40 H 28 H Rate [Anterior Bilateral] Blood Pressure 172/74 O2 Sat by Pulse 93 Oximetry O2 Sat by Pulse Oximetry [ Assessment] 09/19/18 09/19/18 09/19/18 03:15 03:31 03:45 Temperature Pulse Rate 96 H 93 H 85 Pulse Rate [ Anterior Bilateral] Pulse Rate [ From Monitor] Respiratory 34 H 37 H 33 H Rate Respiratory Rate [Anterior Bilateral] Blood Pressure 191/104 159/69 159/69 O2 Sat by Pulse 93 91 94 Oximetry O2 Sat by Pulse Oximetry [ Assessment] 09/19/18 09/19/18 09/19/18 04:00 04:01 04:15 Temperature 99.0 F Pulse Rate 83 75 Pulse Rate [ Anterior Bilateral] Pulse Rate [ 83 From Monitor] Respiratory 22 22 28 H Rate Respiratory Rate [Anterior Bilateral] Blood Pressure 132/57 132/57 O2 Sat by Pulse 96 95 95 Oximetry O2 Sat by Pulse Oximetry [ Assessment] 09/19/18 09/19/18 09/19/18 04:30 04:45 05:00 Temperature Pulse Rate 85 82 82 Pulse Rate [ Anterior Bilateral] Pulse Rate [ From Monitor] Respiratory 22 29 H 21 Rate Respiratory Rate [Anterior Bilateral] Blood Pressure 140/68 140/68 133/62 O2 Sat by Pulse 92 94 96 Oximetry O2 Sat by Pulse Oximetry [ Assessment] 09/19/18 09/19/18 09/19/18 05:05 05:15 05:31 Temperature Pulse Rate 83 86 85 Pulse Rate [ Anterior Bilateral] Pulse Rate [ From Monitor] Respiratory 29 H 22 Rate Respiratory Rate [Anterior Bilateral] Blood Pressure 133/62 133/62 143/64 O2 Sat by Pulse 96 96 96 Oximetry O2 Sat by Pulse Oximetry [ Assessment] 09/19/18 09/19/18 09/19/18 05:45 06:01 06:15 Temperature Pulse Rate 84 83 83 Pulse Rate [ Anterior Bilateral] Pulse Rate [ From Monitor] Respiratory 29 H 28 H 24 Rate Respiratory Rate [Anterior Bilateral] Blood Pressure 143/64 152/54 152/54 O2 Sat by Pulse 96 96 95 Oximetry O2 Sat by Pulse Oximetry [ Assessment] 09/19/18 09/19/18 09/19/18 06:30 06:45 06:48 Temperature Pulse Rate 81 76 75 Pulse Rate [ Anterior Bilateral] Pulse Rate [ From Monitor] Respiratory 26 H 30 H Rate Respiratory Rate [Anterior Bilateral] Blood Pressure 143/62 143/62 143/62 O2 Sat by Pulse 94 97 Oximetry O2 Sat by Pulse Oximetry [ Assessment] 09/19/18 09/19/18 09/19/18 07:01 07:15 07:30 Temperature Pulse Rate 81 81 79 Pulse Rate [ Anterior Bilateral] Pulse Rate [ From Monitor] Respiratory 24 24 30 H Rate Respiratory Rate [Anterior Bilateral] Blood Pressure 165/84 165/84 179/66 O2 Sat by Pulse 95 98 96 Oximetry O2 Sat by Pulse Oximetry [ Assessment] 09/19/18 09/19/18 09/19/18 07:45 08:00 08:01 Temperature 99.4 F Pulse Rate 75 79 Pulse Rate [ Anterior Bilateral] Pulse Rate [ 80 From Monitor] Respiratory 29 H 20 26 H Rate Respiratory Rate [Anterior Bilateral] Blood Pressure 179/66 175/65 O2 Sat by Pulse 97 98 97 Oximetry O2 Sat by Pulse Oximetry [ Assessment] 09/19/18 09/19/18 09/19/18 08:12 08:15 08:19 Temperature Pulse Rate 77 82 Pulse Rate [ 87 Anterior Bilateral] Pulse Rate [ From Monitor] Respiratory 29 H 22 Rate Respiratory 29 H Rate [Anterior Bilateral] Blood Pressure 175/65 175/65 O2 Sat by Pulse 97 96 Oximetry O2 Sat by Pulse Oximetry [ Assessment] 09/19/18 09/19/18 09/19/18 08:22 08:30 08:39 Temperature Pulse Rate 78 Pulse Rate [ 79 Anterior Bilateral] Pulse Rate [ From Monitor] Respiratory 22 Rate Respiratory 29 H Rate [Anterior Bilateral] Blood Pressure 181/72 O2 Sat by Pulse 97 Oximetry O2 Sat by Pulse 98 Oximetry [ Assessment] 09/19/18 09/19/18 09/19/18 08:45 09:01 09:15 Temperature Pulse Rate 81 81 81 Pulse Rate [ Anterior Bilateral] Pulse Rate [ From Monitor] Respiratory 27 H 27 H 21 Rate Respiratory Rate [Anterior Bilateral] Blood Pressure 181/72 178/65 178/65 O2 Sat by Pulse 98 97 97 Oximetry O2 Sat by Pulse Oximetry [ Assessment] 09/19/18 09/19/18 09/19/18 09:31 09:45 10:01 Temperature Pulse Rate 76 77 81 Pulse Rate [ Anterior Bilateral] Pulse Rate [ From Monitor] Respiratory 28 H 29 H 20 Rate Respiratory Rate [Anterior Bilateral] Blood Pressure 171/71 171/71 158/42 O2 Sat by Pulse 97 99 96 Oximetry O2 Sat by Pulse Oximetry [ Assessment] 09/19/18 09/19/18 09/19/18 10:13 10:15 10:31 Temperature Pulse Rate 78 77 76 Pulse Rate [ Anterior Bilateral] Pulse Rate [ From Monitor] Respiratory 23 25 H Rate Respiratory Rate [Anterior Bilateral] Blood Pressure 158/42 158/42 158/42 O2 Sat by Pulse 97 98 Oximetry O2 Sat by Pulse Oximetry [ Assessment] 09/19/18 09/19/18 09/19/18 10:45 11:01 11:15 Temperature Pulse Rate 71 75 79 Pulse Rate [ Anterior Bilateral] Pulse Rate [ From Monitor] Respiratory 25 H 21 30 H Rate Respiratory Rate [Anterior Bilateral] Blood Pressure 158/42 158/42 131/59 O2 Sat by Pulse 98 97 96 Oximetry O2 Sat by Pulse Oximetry [ Assessment] 09/19/18 09/19/18 09/19/18 11:30 11:45 12:00 Temperature 100.0 F H Pulse Rate 84 84 84 Pulse Rate [ Anterior Bilateral] Pulse Rate [ From Monitor] Respiratory 24 16 21 Rate Respiratory Rate [Anterior Bilateral] Blood Pressure 147/74 147/74 139/63 O2 Sat by Pulse 94 97 93 Oximetry O2 Sat by Pulse Oximetry [ Assessment] 09/19/18 09/19/18 12:15 12:25 Temperature Pulse Rate 79 76 Pulse Rate [ Anterior Bilateral] Pulse Rate [ From Monitor] Respiratory 31 H 28 H Rate Respiratory Rate [Anterior Bilateral] Blood Pressure 139/63 139/63 O2 Sat by Pulse 97 98 Oximetry O2 Sat by Pulse Oximetry [ Assessment] Constitutional: appears uncomfortable, other (elderly looking CF, normocephalic and atraumatic) Eyes: non-icteric ENT: oropharynx moist, other (s/p tracheostomy) Neck: supple, no lymphadenopathy, no JVD, other (no thyromegaly) Effort: mildly labored Ascultation: Bilateral: diminished breath sounds, rhonchi Percussion: Bilateral: not dull Cardiovascular: regular rate and rhythm Gastrointestinal: normoactive bowel sounds, soft, non-tender, non-distended Integumentary: normal Extremities: no cyanosis, no ischemia or petechiae, edema (Left lower extremity) Neurologic: non-focal exam (grossly), pupils equal and round, CN II-XII normal, motor strength normal and, other (lethargic) Psychiatric: other (unable to assess) CBC and BMP: 09/18/18 04:20 09/19/18 05:20 ABG, PT/INR, D-dimer: ABG POC ABG pH 7.502 (7.35-7.45) H 09/19/18 05:08 POC ABG pCO2 34.6 (35-45) L 09/19/18 05:08 POC ABG pO2 73 (80-105) L 09/19/18 05:08 POC ABG HCO3 27.1 (22-26 mml/L) 09/19/18 05:08 POC ABG Total CO2 28 (23-27mmol/L) 09/19/18 05:08 POC ABG O2 Sat 96 09/19/18 05:08 PT/INR, D-dimer PT 14.2 Sec. (12.2-14.9) 09/14/18 04:55 INR 1.04 (0.87-1.13) 09/14/18 04:55 D-Dimer 2768.33 ng/mlDDU (0-234) H 08/15/18 18:31 Abnormal lab findings: Abnormal Labs 08/15/18 08/15/18 08/15/18 17:52 17:52 17:52 WBC 12.7 H RBC 3.25 L Hgb Hct RDW Plt Count Lymph % (Auto) [place]min[place] % (Auto) Lymph # [place]minn # Seg Neutrophils % Seg Neuts % (Manual) Lymphocytes % (Manual) 6.0 L Nucleated RBC % Seg Neutrophils # Seg Neutrophils # Man Lymphocytes # (Manual) 0.8 L D-Dimer POC ABG pH POC ABG pCO2 POC ABG pO2 VBG pH Sodium Potassium 3.4 L Chloride 94.6 L Carbon Dioxide 17 L BUN 67 H Creatinine 3.5 H Glucose 131 H POC Glucose Hemoglobin A1c Lactic Acid 5.20 H* Calcium 7.6 L Phosphorus Magnesium Iron TIBC AST 887 H ALT 316 H Troponin T C-Reactive Protein Total Protein Albumin 3.1 L Triglycerides LDL Cholesterol Direct HDL Cholesterol Urine WBC (Auto) Vancomycin Trough Salicylates Acetaminophen % CD3 Cells % CD19 Cells Absolute CD19 Count Miscellaneous Test Crossmatch 08/15/18 08/15/18 08/15/18 18:11 18:19 18:31 WBC RBC Hgb Hct RDW Plt Count Lymph % (Auto) [place] % (Auto) Lymph # [place] # Seg Neutrophils % Seg Neuts % (Manual) Lymphocytes % (Manual) Nucleated RBC % Seg Neutrophils # Seg Neutrophils # Man Lymphocytes # (Manual) D-Dimer 2768.33 H POC ABG pH 7.173 L POC ABG pCO2 47.8 H POC ABG pO2 177 H VBG pH 7.187 L* Sodium Potassium Chloride Carbon Dioxide BUN Creatinine Glucose POC Glucose Hemoglobin A1c Lactic Acid Calcium Phosphorus Magnesium Iron TIBC AST ALT Troponin T C-Reactive Protein Total Protein Albumin Triglycerides LDL Cholesterol Direct HDL Cholesterol Urine WBC (Auto) Vancomycin Trough Salicylates Acetaminophen % CD3 Cells % CD19 Cells Absolute CD19 Count Miscellaneous Test Crossmatch 08/15/18 08/15/18 08/15/18 18:31 19:14 19:14 WBC RBC Hgb Hct RDW Plt Count Lymph % (Auto) [place] % (Auto) Lymph # [place] # Seg Neutrophils % Seg Neuts % (Manual) Lymphocytes % (Manual) Nucleated RBC % Seg Neutrophils # Seg Neutrophils # Man Lymphocytes # (Manual) D-Dimer POC ABG pH POC ABG pCO2 POC ABG pO2 VBG pH Sodium Potassium Chloride Carbon Dioxide BUN Creatinine Glucose POC Glucose Hemoglobin A1c Lactic Acid 2.70 H* Calcium Phosphorus Magnesium Iron TIBC AST ALT Troponin T 0.454 H* C-Reactive Protein Total Protein Albumin Triglycerides 356 H LDL Cholesterol Direct 4 L HDL Cholesterol 10 L Urine WBC (Auto) Vancomycin Trough Salicylates < 0.3 L Acetaminophen % CD3 Cells % CD19 Cells Absolute CD19 Count Miscellaneous Test Crossmatch 08/15/18 08/15/18 08/15/18 19:14 19:15 23:09 WBC RBC Hgb Hct RDW Plt Count Lymph % (Auto) [place] % (Auto) Lymph # [place] # Seg Neutrophils % Seg Neuts % (Manual) Lymphocytes % (Manual) Nucleated RBC % Seg Neutrophils # Seg Neutrophils # Man Lymphocytes # (Manual) D-Dimer POC ABG pH POC ABG pCO2 POC ABG pO2 VBG pH Sodium Potassium Chloride Carbon Dioxide BUN Creatinine Glucose POC Glucose Hemoglobin A1c Lactic Acid 3.20 H* Calcium Phosphorus Magnesium Iron TIBC AST ALT Troponin T C-Reactive Protein Total Protein Albumin Triglycerides LDL Cholesterol Direct HDL Cholesterol Urine WBC (Auto) 17.0 H Vancomycin Trough Salicylates Acetaminophen < 5.0 L % CD3 Cells % CD19 Cells Absolute CD19 Count Miscellaneous Test Crossmatch 08/15/18 08/16/18 08/16/18 23:09 01:41 05:38 WBC RBC 3.07 L Hgb 9.8 L Hct 28.7 L RDW Plt Count Lymph % (Auto) [place] % (Auto) Lymph # [place] # Seg Neutrophils % Seg Neuts % (Manual) 84.0 H Lymphocytes % (Manual) 6.0 L Nucleated RBC % 4.0 H Seg Neutrophils # Seg Neutrophils # Man Lymphocytes # (Manual) 0.5 L D-Dimer POC ABG pH 7.323 L POC ABG pCO2 34.7 L POC ABG pO2 78 L VBG pH Sodium Potassium Chloride Carbon Dioxide BUN Creatinine Glucose POC Glucose Hemoglobin A1c 6.4 H Lactic Acid Calcium Phosphorus Magnesium Iron TIBC AST ALT Troponin T C-Reactive Protein Total Protein Albumin Triglycerides LDL Cholesterol Direct HDL Cholesterol Urine WBC (Auto) Vancomycin Trough Salicylates Acetaminophen % CD3 Cells % CD19 Cells Absolute CD19 Count Miscellaneous Test Crossmatch 08/16/18 08/16/18 08/17/18 05:38 22:43 03:42 WBC RBC Hgb Hct RDW Plt Count Lymph % (Auto) [place] % (Auto) Lymph # [place] # Seg Neutrophils % Seg Neuts % (Manual) Lymphocytes % (Manual) Nucleated RBC % Seg Neutrophils # Seg Neutrophils # Man Lymphocytes # (Manual) D-Dimer POC ABG pH POC ABG pCO2 POC ABG pO2 VBG pH Sodium Potassium 2.9 L* 3.1 L 2.9 L* Chloride 108.8 H 111.9 H Carbon Dioxide 17 L 19 L 21 L BUN 62 H 40 H 33 H Creatinine 2.0 H Glucose 139 H 145 H POC Glucose Hemoglobin A1c Lactic Acid Calcium 7.8 L 8.3 L Phosphorus 1.50 L Magnesium Iron TIBC AST 619 H ALT 353 H Troponin T C-Reactive Protein Total Protein 6.1 L Albumin 2.8 L Triglycerides LDL Cholesterol Direct HDL Cholesterol Urine WBC (Auto) Vancomycin Trough Salicylates Acetaminophen % CD3 Cells % CD19 Cells Absolute CD19 Count Miscellaneous Test Crossmatch 08/17/18 08/17/18 08/18/18 11:02 16:42 03:28 WBC RBC Hgb Hct RDW Plt Count Lymph % (Auto) [place] % (Auto) Lymph # [place] # Seg Neutrophils % Seg Neuts % (Manual) Lymphocytes % (Manual) Nucleated RBC % Seg Neutrophils # Seg Neutrophils # Man Lymphocytes # (Manual) D-Dimer POC ABG pH 7.483 H 7.499 H POC ABG pCO2 POC ABG pO2 VBG pH Sodium 147 H Potassium 3.2 L Chloride 115.8 H Carbon Dioxide BUN 23 H Creatinine Glucose 121 H POC Glucose Hemoglobin A1c Lactic Acid Calcium 8.1 L Phosphorus 2.30 L D Magnesium Iron TIBC AST ALT Troponin T C-Reactive Protein Total Protein Albumin Triglycerides LDL Cholesterol Direct HDL Cholesterol Urine WBC (Auto) Vancomycin Trough Salicylates Acetaminophen % CD3 Cells % CD19 Cells Absolute CD19 Count Miscellaneous Test Crossmatch 08/18/18 08/18/18 08/18/18 04:10 13:39 13:39 WBC RBC Hgb Hct RDW Plt Count Lymph % (Auto) [place] % (Auto) Lymph # [place] # Seg Neutrophils % Seg Neuts % (Manual) Lymphocytes % (Manual) Nucleated RBC % Seg Neutrophils # Seg Neutrophils # Man Lymphocytes # (Manual) D-Dimer POC ABG pH POC ABG pCO2 POC ABG pO2 VBG pH Sodium 147 H Potassium 3.3 L Chloride 111.9 H Carbon Dioxide BUN 21 H Creatinine Glucose 113 H POC Glucose Hemoglobin A1c Lactic Acid Calcium Phosphorus 1.50 L D Magnesium Iron TIBC AST ALT Troponin T 0.317 H* D C-Reactive Protein 10.70 H Total Protein Albumin Triglycerides LDL Cholesterol Direct HDL Cholesterol Urine WBC (Auto) Vancomycin Trough Salicylates Acetaminophen % CD3 Cells % CD19 Cells Absolute CD19 Count Miscellaneous Test Crossmatch 08/18/18 08/19/18 08/19/18 16:51 03:47 04:15 WBC RBC Hgb Hct RDW Plt Count Lymph % (Auto) [place] % (Auto) Lymph # [place] # Seg Neutrophils % Seg Neuts % (Manual) Lymphocytes % (Manual) Nucleated RBC % Seg Neutrophils # Seg Neutrophils # Man Lymphocytes # (Manual) D-Dimer POC ABG pH 7.454 H 7.482 H POC ABG pCO2 POC ABG pO2 65 L VBG pH Sodium 154 H Potassium 3.3 L Chloride 115.1 H Carbon Dioxide BUN 19 H Creatinine Glucose 117 H POC Glucose Hemoglobin A1c Lactic Acid Calcium 7.8 L Phosphorus Magnesium Iron TIBC AST ALT Troponin T C-Reactive Protein Total Protein Albumin Triglycerides LDL Cholesterol Direct HDL Cholesterol Urine WBC (Auto) Vancomycin Trough Salicylates Acetaminophen % CD3 Cells % CD19 Cells Absolute CD19 Count Miscellaneous Test Crossmatch 08/19/18 08/19/18 08/20/18 14:32 16:18 03:51 WBC RBC Hgb Hct RDW Plt Count Lymph % (Auto) [place] % (Auto) Lymph # [place] # Seg Neutrophils % Seg Neuts % (Manual) Lymphocytes % (Manual) Nucleated RBC % Seg Neutrophils # Seg Neutrophils # Man Lymphocytes # (Manual) D-Dimer POC ABG pH 7.483 H POC ABG pCO2 33.4 L POC ABG pO2 51 L 74 L VBG pH Sodium Potassium Chloride Carbon Dioxide BUN Creatinine Glucose POC Glucose Hemoglobin A1c Lactic Acid Calcium Phosphorus Magnesium Iron TIBC AST ALT Troponin T C-Reactive Protein Total Protein Albumin Triglycerides LDL Cholesterol Direct HDL Cholesterol Urine WBC (Auto) Vancomycin Trough Salicylates Acetaminophen % CD3 Cells 44 L % CD19 Cells 41 H Absolute CD19 Count 1290 H Miscellaneous Test Crossmatch 08/20/18 08/21/18 08/21/18 05:25 03:54 05:45 WBC 24.1 H RBC 2.83 L Hgb 8.8 L Hct 26.7 L RDW 15.7 H Plt Count 127 L Lymph % (Auto) [place] % (Auto) Lymph # [place] # Seg Neutrophils % Seg Neuts % (Manual) 94.0 H Lymphocytes % (Manual) 4.0 L Nucleated RBC % 1.0 H Seg Neutrophils # Seg Neutrophils # Man 22.7 H Lymphocytes # (Manual) 1.0 L D-Dimer POC ABG pH POC ABG pCO2 31.9 L POC ABG pO2 66 L VBG pH Sodium 146 H D Potassium Chloride 111.2 H Carbon Dioxide BUN 24 H Creatinine Glucose 141 H POC Glucose Hemoglobin A1c Lactic Acid Calcium 8.1 L Phosphorus Magnesium Iron TIBC AST 65 H ALT 104 H Troponin T C-Reactive Protein Total Protein 6.2 L Albumin 2.6 L Triglycerides LDL Cholesterol Direct HDL Cholesterol Urine WBC (Auto) Vancomycin Trough Salicylates Acetaminophen % CD3 Cells % CD19 Cells Absolute CD19 Count Miscellaneous Test Crossmatch 08/21/18 08/22/18 08/22/18 05:45 06:20 06:45 WBC RBC Hgb Hct RDW Plt Count Lymph % (Auto) [place] % (Auto) Lymph # [place] # Seg Neutrophils % Seg Neuts % (Manual) Lymphocytes % (Manual) Nucleated RBC % Seg Neutrophils # Seg Neutrophils # Man Lymphocytes # (Manual) D-Dimer POC ABG pH POC ABG pCO2 32.9 L POC ABG pO2 VBG pH Sodium Potassium 3.5 L Chloride 109.4 H 112.4 H Carbon Dioxide 21 L 20 L BUN 50 H 61 H Creatinine 2.0 H D 1.9 H Glucose 144 H 154 H POC Glucose Hemoglobin A1c Lactic Acid Calcium 7.6 L 7.8 L Phosphorus Magnesium Iron TIBC AST ALT Troponin T C-Reactive Protein Total Protein 5.3 L Albumin 2.1 L Triglycerides LDL Cholesterol Direct HDL Cholesterol Urine WBC (Auto) Vancomycin Trough Salicylates Acetaminophen % CD3 Cells % CD19 Cells Absolute CD19 Count Miscellaneous Test Crossmatch 03/25/19 03/25/19 03/25/19 06:45 15:29 18:40 WBC RBC Hgb Hct RDW Plt Count Lymph % (Auto) [place] % (Auto) Lymph # [place] # Seg Neutrophils % Seg Neuts % (Manual) Lymphocytes % (Manual) Nucleated RBC % Seg Neutrophils # Seg Neutrophils # Man Lymphocytes # (Manual) D-Dimer POC ABG pH POC ABG pCO2 POC ABG pO2 VBG pH Sodium Potassium Chloride Carbon Dioxide BUN Creatinine Glucose POC Glucose 169 H Hemoglobin A1c Lactic Acid Calcium Phosphorus Magnesium Iron TIBC AST ALT Troponin T C-Reactive Protein 4.70 H Total Protein Albumin Triglycerides 197 H LDL Cholesterol Direct HDL Cholesterol Urine WBC (Auto) Vancomycin Trough Salicylates Acetaminophen % CD3 Cells % CD19 Cells Absolute CD19 Count Miscellaneous Test Crossmatch 08/23/18 08/23/18 08/23/18 03:59 21:19 Unknown WBC 12.1 H RBC 2.29 L Hgb 7.1 L Hct 21.7 L RDW 15.7 H Plt Count 106 L Lymph % (Auto) [place] % (Auto) Lymph # [place] # Seg Neutrophils % Seg Neuts % (Manual) 92.0 H Lymphocytes % (Manual) 4.0 L Nucleated RBC % Seg Neutrophils # Seg Neutrophils # Man 11.1 H Lymphocytes # (Manual) 0.5 L D-Dimer POC ABG pH 7.306 L POC ABG pCO2 31.3 L POC ABG pO2 119 H 75 L VBG pH Sodium Potassium Chloride Carbon Dioxide BUN Creatinine Glucose POC Glucose Hemoglobin A1c Lactic Acid Calcium Phosphorus Magnesium Iron TIBC AST ALT Troponin T C-Reactive Protein Total Protein Albumin Triglycerides LDL Cholesterol Direct HDL Cholesterol Urine WBC (Auto) Vancomycin Trough Salicylates Acetaminophen % CD3 Cells % CD19 Cells Absolute CD19 Count Miscellaneous Test Crossmatch 08/23/18 08/24/18 08/24/18 Unknown 04:18 08:30 WBC 12.8 H RBC 2.24 L Hgb 7.0 L Hct 21.1 L RDW Plt Count Lymph % (Auto) [place] % (Auto) Lymph # [place] # Seg Neutrophils % Seg Neuts % (Manual) 93.0 H Lymphocytes % (Manual) 6.0 L Nucleated RBC % Seg Neutrophils # Seg Neutrophils # Man 11.9 H Lymphocytes # (Manual) 0.8 L D-Dimer POC ABG pH POC ABG pCO2 POC ABG pO2 78 L VBG pH Sodium Potassium Chloride 115.7 H Carbon Dioxide 21 L BUN 64 H Creatinine 2.0 H Glucose 149 H POC Glucose Hemoglobin A1c Lactic Acid Calcium 7.5 L Phosphorus Magnesium Iron TIBC AST ALT Troponin T C-Reactive Protein Total Protein 4.8 L Albumin 2.0 L Triglycerides LDL Cholesterol Direct HDL Cholesterol Urine WBC (Auto) Vancomycin Trough Salicylates Acetaminophen % CD3 Cells % CD19 Cells Absolute CD19 Count Miscellaneous Test Crossmatch 08/24/18 08/24/18 08/24/18 08:30 17:44 18:28 WBC RBC Hgb Hct RDW Plt Count Lymph % (Auto) [place] % (Auto) Lymph # [place] # Seg Neutrophils % Seg Neuts % (Manual) Lymphocytes % (Manual) Nucleated RBC % Seg Neutrophils # Seg Neutrophils # Man Lymphocytes # (Manual) D-Dimer POC ABG pH 7.474 H POC ABG pCO2 POC ABG pO2 61 L VBG pH Sodium Potassium Chloride 108.3 H Carbon Dioxide 20 L BUN 65 H Creatinine 2.0 H Glucose 167 H POC Glucose 164 H Hemoglobin A1c Lactic Acid Calcium 7.7 L Phosphorus Magnesium Iron TIBC AST ALT Troponin T C-Reactive Protein Total Protein 5.3 L Albumin 2.2 L Triglycerides LDL Cholesterol Direct HDL Cholesterol Urine WBC (Auto) Vancomycin Trough Salicylates Acetaminophen % CD3 Cells % CD19 Cells Absolute CD19 Count Miscellaneous Test Crossmatch 08/25/18 08/25/18 08/25/18 03:35 05:20 05:20 WBC RBC Hgb 6.7 L Hct 21.0 L RDW Plt Count Lymph % (Auto) [place] % (Auto) Lymph # [place] # Seg Neutrophils % Seg Neuts % (Manual) Lymphocytes % (Manual) Nucleated RBC % Seg Neutrophils # Seg Neutrophils # Man Lymphocytes # (Manual) D-Dimer POC ABG pH POC ABG pCO2 POC ABG pO2 79 L VBG pH Sodium Potassium Chloride Carbon Dioxide 21 L BUN 71 H Creatinine 3.1 H D Glucose 171 H POC Glucose Hemoglobin A1c Lactic Acid Calcium 7.5 L Phosphorus Magnesium Iron TIBC AST ALT Troponin T C-Reactive Protein Total Protein Albumin Triglycerides LDL Cholesterol Direct HDL Cholesterol Urine WBC (Auto) Vancomycin Trough Salicylates Acetaminophen % CD3 Cells % CD19 Cells Absolute CD19 Count Miscellaneous Test Crossmatch 08/25/18 08/25/18 08/25/18 05:20 08:52 12:42 WBC RBC Hgb Hct RDW Plt Count Lymph % (Auto) [place] % (Auto) Lymph # [place] # Seg Neutrophils % Seg Neuts % (Manual) Lymphocytes % (Manual) Nucleated RBC % Seg Neutrophils # Seg Neutrophils # Man Lymphocytes # (Manual) D-Dimer POC ABG pH POC ABG pCO2 POC ABG pO2 VBG pH Sodium Potassium Chloride Carbon Dioxide BUN Creatinine Glucose POC Glucose 166 H Hemoglobin A1c Lactic Acid Calcium Phosphorus Magnesium Iron TIBC AST ALT Troponin T C-Reactive Protein 5.00 H Total Protein Albumin Triglycerides LDL Cholesterol Direct HDL Cholesterol Urine WBC (Auto) Vancomycin Trough Salicylates Acetaminophen % CD3 Cells % CD19 Cells Absolute CD19 Count Miscellaneous Test Crossmatch See Detail 08/25/18 08/26/18 08/26/18 18:05 00:13 04:53 WBC RBC Hgb Hct RDW Plt Count Lymph % (Auto) [place] % (Auto) Lymph # [place] # Seg Neutrophils % Seg Neuts % (Manual) Lymphocytes % (Manual) Nucleated RBC % Seg Neutrophils # Seg Neutrophils # Man Lymphocytes # (Manual) D-Dimer POC ABG pH POC ABG pCO2 30.9 L POC ABG pO2 70 L VBG pH Sodium Potassium Chloride Carbon Dioxide BUN Creatinine Glucose POC Glucose 121 H 164 H Hemoglobin A1c Lactic Acid Calcium Phosphorus Magnesium Iron TIBC AST ALT Troponin T C-Reactive Protein Total Protein Albumin Triglycerides LDL Cholesterol Direct HDL Cholesterol Urine WBC (Auto) Vancomycin Trough Salicylates Acetaminophen % CD3 Cells % CD19 Cells Absolute CD19 Count Miscellaneous Test Crossmatch 08/26/18 08/26/18 08/26/18 05:42 06:00 06:00 WBC RBC 2.62 L Hgb 7.7 L Hct 23.0 L RDW 22.0 H Plt Count Lymph % (Auto) 6.3 L [place] % (Auto) Lymph # 0.7 L [place] # Seg Neutrophils % 88.1 H Seg Neuts % (Manual) Lymphocytes % (Manual) Nucleated RBC % Seg Neutrophils # 9.6 H Seg Neutrophils # Man Lymphocytes # (Manual) D-Dimer POC ABG pH POC ABG pCO2 POC ABG pO2 VBG pH Sodium Potassium Chloride Carbon Dioxide 21 L BUN 70 H Creatinine 3.3 H Glucose 146 H POC Glucose 149 H Hemoglobin A1c Lactic Acid Calcium 8.0 L Phosphorus Magnesium Iron TIBC AST ALT Troponin T C-Reactive Protein Total Protein Albumin Triglycerides LDL Cholesterol Direct HDL Cholesterol Urine WBC (Auto) Vancomycin Trough Salicylates Acetaminophen % CD3 Cells % CD19 Cells Absolute CD19 Count Miscellaneous Test Crossmatch 08/26/18 08/26/1808/27/19 11:37 23:54 04:35 WBC RBC 2.50 L Hgb 7.6 L Hct 22.3 L RDW 21.8 H Plt Count Lymph % (Auto) 7.3 L [place] % (Auto) Lymph # 0.7 L [place] # Seg Neutrophils % 85.6 H Seg Neuts % (Manual) Lymphocytes % (Manual) Nucleated RBC % Seg Neutrophils # 8.6 H Seg Neutrophils # Man Lymphocytes # (Manual) D-Dimer POC ABG pH POC ABG pCO2 POC ABG pO2 VBG pH Sodium Potassium Chloride Carbon Dioxide BUN Creatinine Glucose POC Glucose 183 H 150 H Hemoglobin A1c Lactic Acid Calcium Phosphorus Magnesium Iron TIBC AST ALT Troponin T C-Reactive Protein Total Protein Albumin Triglycerides LDL Cholesterol Direct HDL Cholesterol Urine WBC (Auto) Vancomycin Trough Salicylates Acetaminophen % CD3 Cells % CD19 Cells Absolute CD19 Count Miscellaneous Test Crossmatch 08/27/18 08/27/18 08/28/18 04:35 12:17 04:43 WBC RBC Hgb Hct RDW Plt Count Lymph % (Auto) [place] % (Auto) Lymph # [place] # Seg Neutrophils % Seg Neuts % (Manual) Lymphocytes % (Manual) Nucleated RBC % Seg Neutrophils # Seg Neutrophils # Man Lymphocytes # (Manual) D-Dimer POC ABG pH POC ABG pCO2 32.1 L 33.8 L POC ABG pO2 68 L 78 L VBG pH Sodium Potassium Chloride Carbon Dioxide 19 L BUN 67 H Creatinine 2.9 H Glucose 155 H POC Glucose Hemoglobin A1c Lactic Acid Calcium Phosphorus 4.70 H Magnesium Iron TIBC AST ALT Troponin T C-Reactive Protein Total Protein Albumin Triglycerides LDL Cholesterol Direct HDL Cholesterol Urine WBC (Auto) Vancomycin Trough Salicylates Acetaminophen % CD3 Cells % CD19 Cells Absolute CD19 Count Miscellaneous Test Crossmatch 08/28/18 08/28/18 08/28/18 05:03 05:20 05:20 WBC RBC 2.43 L Hgb 7.4 L Hct 21.8 L RDW 20.8 H Plt Count Lymph % (Auto) 7.6 L [place] % (Auto) 8.7 H Lymph # 0.7 L [place] # Seg Neutrophils % 82.9 H Seg Neuts % (Manual) Lymphocytes % (Manual) Nucleated RBC % Seg Neutrophils # Seg Neutrophils # Man Lymphocytes # (Manual) D-Dimer POC ABG pH POC ABG pCO2 POC ABG pO2 VBG pH Sodium Potassium Chloride 107.8 H Carbon Dioxide 21 L BUN 55 H Creatinine 2.0 H Glucose 177 H POC Glucose 160 H Hemoglobin A1c Lactic Acid Calcium Phosphorus Magnesium Iron TIBC AST ALT Troponin T C-Reactive Protein Total Protein Albumin Triglycerides LDL Cholesterol Direct HDL Cholesterol Urine WBC (Auto) Vancomycin Trough Salicylates Acetaminophen % CD3 Cells % CD19 Cells Absolute CD19 Count Miscellaneous Test Crossmatch 08/28/18 08/28/18 08/28/18 12:18 18:58 22:31 WBC RBC Hgb Hct RDW Plt Count Lymph % (Auto) [place] % (Auto) Lymph # [place] # Seg Neutrophils % Seg Neuts % (Manual) Lymphocytes % (Manual) Nucleated RBC % Seg Neutrophils # Seg Neutrophils # Man Lymphocytes # (Manual) D-Dimer POC ABG pH POC ABG pCO2 34.4 L POC ABG pO2 67 L VBG pH Sodium Potassium Chloride Carbon Dioxide BUN Creatinine Glucose POC Glucose 164 H 149 H Hemoglobin A1c Lactic Acid Calcium Phosphorus Magnesium Iron TIBC AST ALT Troponin T C-Reactive Protein Total Protein Albumin Triglycerides LDL Cholesterol Direct HDL Cholesterol Urine WBC (Auto) Vancomycin Trough Salicylates Acetaminophen % CD3 Cells % CD19 Cells Absolute CD19 Count Miscellaneous Test Crossmatch 08/28/18 08/29/18 08/29/18 23:33 05:25 05:25 WBC RBC 2.30 L Hgb 7.0 L Hct 20.9 L RDW 21.0 H Plt Count Lymph % (Auto) 11.5 L [place] % (Auto) 9.2 H Lymph # 0.8 L [place] # Seg Neutrophils % 78.8 H Seg Neuts % (Manual) Lymphocytes % (Manual) Nucleated RBC % Seg Neutrophils # Seg Neutrophils # Man Lymphocytes # (Manual) D-Dimer POC ABG pH POC ABG pCO2 POC ABG pO2 VBG pH Sodium Potassium Chloride 111.1 H Carbon Dioxide BUN 55 H Creatinine 1.8 H Glucose 162 H POC Glucose 143 H Hemoglobin A1c Lactic Acid Calcium Phosphorus Magnesium Iron TIBC AST 46 H ALT < 5 L Troponin T C-Reactive Protein Total Protein 5.7 L Albumin 2.1 L Triglycerides LDL Cholesterol Direct HDL Cholesterol Urine WBC (Auto) Vancomycin Trough Salicylates Acetaminophen % CD3 Cells % CD19 Cells Absolute CD19 Count Miscellaneous Test Crossmatch 08/29/18 08/29/18 08/30/18 18:19 23:35 05:03 WBC RBC Hgb Hct RDW Plt Count Lymph % (Auto) [place] % (Auto) Lymph # [place] # Seg Neutrophils % Seg Neuts % (Manual) Lymphocytes % (Manual) Nucleated RBC % Seg Neutrophils # Seg Neutrophils # Man Lymphocytes # (Manual) D-Dimer POC ABG pH POC ABG pCO2 POC ABG pO2 VBG pH Sodium Potassium Chloride Carbon Dioxide BUN Creatinine Glucose POC Glucose 155 H 139 H 122 H Hemoglobin A1c Lactic Acid Calcium Phosphorus Magnesium Iron TIBC AST ALT Troponin T C-Reactive Protein Total Protein Albumin Triglycerides LDL Cholesterol Direct HDL Cholesterol Urine WBC (Auto) Vancomycin Trough Salicylates Acetaminophen % CD3 Cells % CD19 Cells Absolute CD19 Count Miscellaneous Test Crossmatch 08/30/18 08/30/18 08/30/18 09:33 09:33 09:54 WBC RBC 2.58 L Hgb 7.9 L Hct 23.5 L RDW 20.9 H Plt Count Lymph % (Auto) 8.0 L [place] % (Auto) 9.7 H Lymph # 0.8 L [place] # 1.0 H Seg Neutrophils % 82.1 H Seg Neuts % (Manual) Lymphocytes % (Manual) Nucleated RBC % Seg Neutrophils # 8.2 H Seg Neutrophils # Man Lymphocytes # (Manual) D-Dimer POC ABG pH POC ABG pCO2 POC ABG pO2 VBG pH Sodium 146 H Potassium Chloride 110.7 H Carbon Dioxide BUN 56 H Creatinine 1.9 H Glucose 145 H POC Glucose Hemoglobin A1c Lactic Acid Calcium Phosphorus 4.60 H Magnesium Iron TIBC AST ALT < 5 L Troponin T C-Reactive Protein Total Protein Albumin 2.7 L Triglycerides LDL Cholesterol Direct HDL Cholesterol Urine WBC (Auto) Vancomycin Trough Salicylates Acetaminophen % CD3 Cells % CD19 Cells Absolute CD19 Count Miscellaneous Test Flexitest 1 H Crossmatch 08/30/18 08/30/18 08/30/18 09:57 11:26 18:08 WBC RBC Hgb Hct RDW Plt Count Lymph % (Auto) [place] % (Auto) Lymph # [place] # Seg Neutrophils % Seg Neuts % (Manual) Lymphocytes % (Manual) Nucleated RBC % Seg Neutrophils # Seg Neutrophils # Man Lymphocytes # (Manual) D-Dimer POC ABG pH POC ABG pCO2 POC ABG pO2 VBG pH Sodium Potassium Chloride Carbon Dioxide BUN Creatinine Glucose POC Glucose 149 H 156 H Hemoglobin A1c Lactic Acid Calcium Phosphorus Magnesium Iron TIBC AST ALT Troponin T C-Reactive Protein Total Protein Albumin Triglycerides LDL Cholesterol Direct HDL Cholesterol Urine WBC (Auto) Vancomycin Trough Salicylates Acetaminophen % CD3 Cells % CD19 Cells Absolute CD19 Count Miscellaneous Test Flexitest 1 H Crossmatch 08/30/18 08/31/18 08/31/18 23:14 05:16 08:40 WBC RBC Hgb Hct RDW Plt Count Lymph % (Auto) [place] % (Auto) Lymph # [place] # Seg Neutrophils % Seg Neuts % (Manual) Lymphocytes % (Manual) Nucleated RBC % Seg Neutrophils # Seg Neutrophils # Man Lymphocytes # (Manual) D-Dimer POC ABG pH POC ABG pCO2 POC ABG pO2 VBG pH Sodium 151 H Potassium Chloride 113.8 H Carbon Dioxide BUN 45 H Creatinine Glucose 144 H POC Glucose 117 H 133 H Hemoglobin A1c Lactic Acid Calcium Phosphorus Magnesium Iron TIBC AST ALT Troponin T C-Reactive Protein Total Protein Albumin Triglycerides LDL Cholesterol Direct HDL Cholesterol Urine WBC (Auto) Vancomycin Trough Salicylates Acetaminophen % CD3 Cells % CD19 Cells Absolute CD19 Count Miscellaneous Test Crossmatch 08/31/18 09/01/18 09/01/18 23:46 04:45 04:45 WBC RBC 2.38 L Hgb 7.3 L Hct 22.1 L RDW 21.1 H Plt Count Lymph % (Auto) [place] % (Auto) Lymph # [place] # Seg Neutrophils % Seg Neuts % (Manual) 93.0 H Lymphocytes % (Manual) 4.0 L Nucleated RBC % Seg Neutrophils # Seg Neutrophils # Man 10.1 H Lymphocytes # (Manual) 0.4 L D-Dimer POC ABG pH POC ABG pCO2 POC ABG pO2 VBG pH Sodium 156 H Potassium 3.1 L Chloride 115.2 H Carbon Dioxide BUN 34 H Creatinine Glucose 125 H POC Glucose 124 H Hemoglobin A1c Lactic Acid Calcium Phosphorus Magnesium Iron TIBC AST ALT Troponin T C-Reactive Protein Total Protein Albumin Triglycerides LDL Cholesterol Direct HDL Cholesterol Urine WBC (Auto) Vancomycin Trough Salicylates Acetaminophen % CD3 Cells % CD19 Cells Absolute CD19 Count Miscellaneous Test Crossmatch 09/01/18 09/01/18 09/01/18 05:34 11:20 17:52 WBC RBC Hgb Hct RDW Plt Count Lymph % (Auto) [place] % (Auto) Lymph # [place] # Seg Neutrophils % Seg Neuts % (Manual) Lymphocytes % (Manual) Nucleated RBC % Seg Neutrophils # Seg Neutrophils # Man Lymphocytes # (Manual) D-Dimer POC ABG pH 7.553 H POC ABG pCO2 POC ABG pO2 74 L VBG pH Sodium Potassium Chloride Carbon Dioxide BUN Creatinine Glucose POC Glucose 128 H 146 H Hemoglobin A1c Lactic Acid Calcium Phosphorus Magnesium Iron TIBC AST ALT Troponin T C-Reactive Protein Total Protein Albumin Triglycerides LDL Cholesterol Direct HDL Cholesterol Urine WBC (Auto) Vancomycin Trough Salicylates Acetaminophen % CD3 Cells % CD19 Cells Absolute CD19 Count Miscellaneous Test Crossmatch 09/01/18 09/02/18 09/02/18 17:52 04:13 04:58 WBC 16.4 H RBC 2.64 L Hgb 7.9 L Hct 24.3 L RDW 20.8 H Plt Count Lymph % (Auto) [place] % (Auto) Lymph # [place] # Seg Neutrophils % Seg Neuts % (Manual) 96.0 H Lymphocytes % (Manual) 1.0 L Nucleated RBC % Seg Neutrophils # Seg Neutrophils # Man 15.7 H Lymphocytes # (Manual) 0.2 L D-Dimer POC ABG pH 7.488 H POC ABG pCO2 POC ABG pO2 63 L VBG pH Sodium Potassium Chloride Carbon Dioxide BUN Creatinine Glucose POC Glucose 143 H Hemoglobin A1c Lactic Acid Calcium Phosphorus Magnesium Iron TIBC AST ALT Troponin T C-Reactive Protein Total Protein Albumin Triglycerides LDL Cholesterol Direct HDL Cholesterol Urine WBC (Auto) Vancomycin Trough Salicylates Acetaminophen % CD3 Cells % CD19 Cells Absolute CD19 Count Miscellaneous Test Crossmatch 09/02/18 09/02/18 09/02/18 04:58 11:03 18:18 WBC RBC Hgb Hct RDW Plt Count Lymph % (Auto) [place] % (Auto) Lymph # [place] # Seg Neutrophils % Seg Neuts % (Manual) Lymphocytes % (Manual) Nucleated RBC % Seg Neutrophils # Seg Neutrophils # Man Lymphocytes # (Manual) D-Dimer POC ABG pH 7.344 L POC ABG pCO2 52.8 H POC ABG pO2 VBG pH Sodium 158 H Potassium 2.9 L* Chloride 115.7 H Carbon Dioxide BUN 27 H Creatinine 0.6 L Glucose 128 H POC Glucose 121 H Hemoglobin A1c Lactic Acid Calcium Phosphorus Magnesium 1.60 L Iron TIBC AST 64 H ALT Troponin T C-Reactive Protein Total Protein Albumin 2.6 L Triglycerides LDL Cholesterol Direct HDL Cholesterol Urine WBC (Auto) Vancomycin Trough Salicylates Acetaminophen % CD3 Cells % CD19 Cells Absolute CD19 Count Miscellaneous Test Crossmatch 09/02/18 09/03/18 09/03/18 23:06 03:36 04:25 WBC RBC 2.20 L Hgb 6.7 L Hct 20.9 L RDW 21.1 H Plt Count Lymph % (Auto) [place] % (Auto) Lymph # [place] # Seg Neutrophils % Seg Neuts % (Manual) 90.0 H Lymphocytes % (Manual) 5.0 L Nucleated RBC % Seg Neutrophils # Seg Neutrophils # Man 8.7 H Lymphocytes # (Manual) 0.5 L D-Dimer POC ABG pH POC ABG pCO2 POC ABG pO2 54 L VBG pH Sodium Potassium Chloride Carbon Dioxide BUN Creatinine Glucose POC Glucose 121 H Hemoglobin A1c Lactic Acid Calcium Phosphorus Magnesium Iron TIBC AST ALT Troponin T C-Reactive Protein Total Protein Albumin Triglycerides LDL Cholesterol Direct HDL Cholesterol Urine WBC (Auto) Vancomycin Trough Salicylates Acetaminophen % CD3 Cells % CD19 Cells Absolute CD19 Count Miscellaneous Test Crossmatch 09/03/18 09/03/18 09/03/18 04:25 05:45 10:24 WBC RBC Hgb Hct RDW Plt Count Lymph % (Auto) [place] % (Auto) Lymph # [place] # Seg Neutrophils % Seg Neuts % (Manual) Lymphocytes % (Manual) Nucleated RBC % Seg Neutrophils # Seg Neutrophils # Man Lymphocytes # (Manual) D-Dimer POC ABG pH POC ABG pCO2 POC ABG pO2 VBG pH Sodium 158 H Potassium 3.1 L Chloride 120.4 H Carbon Dioxide BUN 25 H Creatinine 0.6 L Glucose 127 H POC Glucose 178 H Hemoglobin A1c Lactic Acid Calcium 7.9 L Phosphorus Magnesium Iron TIBC AST ALT Troponin T C-Reactive Protein Total Protein 6.0 L Albumin 2.4 L Triglycerides LDL Cholesterol Direct HDL Cholesterol Urine WBC (Auto) Vancomycin Trough Salicylates Acetaminophen % CD3 Cells % CD19 Cells Absolute CD19 Count Miscellaneous Test Crossmatch See Detail 09/03/18 09/03/18 09/04/18 11:27 23:09 04:42 WBC RBC Hgb Hct RDW Plt Count Lymph % (Auto) [place] % (Auto) Lymph # [place] # Seg Neutrophils % Seg Neuts % (Manual) Lymphocytes % (Manual) Nucleated RBC % Seg Neutrophils # Seg Neutrophils # Man Lymphocytes # (Manual) D-Dimer POC ABG pH 7.293 L POC ABG pCO2 50.2 H POC ABG pO2 VBG pH Sodium Potassium Chloride Carbon Dioxide BUN Creatinine Glucose POC Glucose 107 H 139 H Hemoglobin A1c Lactic Acid Calcium Phosphorus Magnesium Iron TIBC AST ALT Troponin T C-Reactive Protein Total Protein Albumin Triglycerides LDL Cholesterol Direct HDL Cholesterol Urine WBC (Auto) Vancomycin Trough Salicylates Acetaminophen % CD3 Cells % CD19 Cells Absolute CD19 Count Miscellaneous Test Crossmatch 09/04/18 09/04/18 09/04/18 05:00 06:30 06:30 WBC RBC 2.32 L Hgb 7.0 L Hct 21.9 L RDW 20.2 H Plt Count Lymph % (Auto) [place] % (Auto) Lymph # [place] # Seg Neutrophils % 80.1 H Seg Neuts % (Manual) Lymphocytes % (Manual) Nucleated RBC % Seg Neutrophils # 8.2 H Seg Neutrophils # Man Lymphocytes # (Manual) D-Dimer POC ABG pH POC ABG pCO2 POC ABG pO2 VBG pH Sodium 150 H D Potassium Chloride 115.9 H Carbon Dioxide BUN 21 H Creatinine 0.6 L Glucose 125 H POC Glucose 154 H Hemoglobin A1c Lactic Acid Calcium 7.9 L Phosphorus Magnesium 1.50 L Iron TIBC AST ALT Troponin T C-Reactive Protein Total Protein Albumin Triglycerides LDL Cholesterol Direct HDL Cholesterol Urine WBC (Auto) Vancomycin Trough Salicylates Acetaminophen % CD3 Cells % CD19 Cells Absolute CD19 Count Miscellaneous Test Crossmatch 09/04/18 09/04/18 09/04/18 11:20 11:51 18:27 WBC RBC Hgb Hct RDW Plt Count Lymph % (Auto) [place] % (Auto) Lymph # [place] # Seg Neutrophils % Seg Neuts % (Manual) Lymphocytes % (Manual) Nucleated RBC % Seg Neutrophils # Seg Neutrophils # Man Lymphocytes # (Manual) D-Dimer POC ABG pH 7.244 L POC ABG pCO2 54.2 H POC ABG pO2 62 L VBG pH Sodium Potassium Chloride Carbon Dioxide BUN Creatinine Glucose POC Glucose 156 H 129 H Hemoglobin A1c Lactic Acid Calcium Phosphorus Magnesium Iron TIBC AST ALT Troponin T C-Reactive Protein Total Protein Albumin Triglycerides LDL Cholesterol Direct HDL Cholesterol Urine WBC (Auto) Vancomycin Trough Salicylates Acetaminophen % CD3 Cells % CD19 Cells Absolute CD19 Count Miscellaneous Test Crossmatch 09/05/18 09/05/18 09/05/18 03:46 04:00 04:00 WBC RBC 2.13 L Hgb 6.4 L Hct 20.1 L RDW 19.9 H Plt Count 117 L Lymph % (Auto) [place] % (Auto) Lymph # 0.9 L [place] # Seg Neutrophils % 81.7 H Seg Neuts % (Manual) Lymphocytes % (Manual) Nucleated RBC % Seg Neutrophils # Seg Neutrophils # Man Lymphocytes # (Manual) D-Dimer POC ABG pH 7.282 L POC ABG pCO2 57.3 H POC ABG pO2 124 H VBG pH Sodium Potassium Chloride 111.0 H Carbon Dioxide BUN 20 H Creatinine Glucose 130 H POC Glucose Hemoglobin A1c Lactic Acid Calcium 7.8 L Phosphorus Magnesium 1.60 L Iron TIBC AST ALT Troponin T C-Reactive Protein Total Protein Albumin Triglycerides LDL Cholesterol Direct HDL Cholesterol Urine WBC (Auto) Vancomycin Trough Salicylates Acetaminophen % CD3 Cells % CD19 Cells Absolute CD19 Count Miscellaneous Test Crossmatch 09/05/18 09/05/18 09/05/18 12:15 17:24 23:24 WBC RBC Hgb Hct RDW Plt Count Lymph % (Auto) [place] % (Auto) Lymph # [place] # Seg Neutrophils % Seg Neuts % (Manual) Lymphocytes % (Manual) Nucleated RBC % Seg Neutrophils # Seg Neutrophils # Man Lymphocytes # (Manual) D-Dimer POC ABG pH POC ABG pCO2 POC ABG pO2 VBG pH Sodium Potassium Chloride Carbon Dioxide BUN Creatinine Glucose POC Glucose 143 H 116 H 116 H Hemoglobin A1c Lactic Acid Calcium Phosphorus Magnesium Iron TIBC AST ALT Troponin T C-Reactive Protein Total Protein Albumin Triglycerides LDL Cholesterol Direct HDL Cholesterol Urine WBC (Auto) Vancomycin Trough Salicylates Acetaminophen % CD3 Cells % CD19 Cells Absolute CD19 Count Miscellaneous Test Crossmatch 09/06/18 09/06/18 09/06/18 03:33 04:20 04:20 WBC RBC 2.45 L Hgb 7.4 L Hct 23.0 L RDW 18.1 H Plt Count 99 L Lymph % (Auto) [place] % (Auto) Lymph # 1.0 L [place] # Seg Neutrophils % 78.0 H Seg Neuts % (Manual) Lymphocytes % (Manual) Nucleated RBC % Seg Neutrophils # Seg Neutrophils # Man Lymphocytes # (Manual) D-Dimer POC ABG pH 7.303 L POC ABG pCO2 49.2 H POC ABG pO2 73 L VBG pH Sodium Potassium Chloride 109.3 H Carbon Dioxide BUN 24 H Creatinine Glucose 108 H POC Glucose Hemoglobin A1c Lactic Acid Calcium 8.1 L Phosphorus Magnesium Iron TIBC AST ALT Troponin T C-Reactive Protein Total Protein Albumin Triglycerides LDL Cholesterol Direct HDL Cholesterol Urine WBC (Auto) Vancomycin Trough Salicylates Acetaminophen % CD3 Cells % CD19 Cells Absolute CD19 Count Miscellaneous Test Crossmatch 09/06/18 09/06/18 09/06/18 04:55 11:29 14:40 WBC RBC Hgb Hct RDW Plt Count Lymph % (Auto) [place] % (Auto) Lymph # [place] # Seg Neutrophils % Seg Neuts % (Manual) Lymphocytes % (Manual) Nucleated RBC % Seg Neutrophils # Seg Neutrophils # Man Lymphocytes # (Manual) D-Dimer POC ABG pH POC ABG pCO2 POC ABG pO2 VBG pH Sodium Potassium Chloride Carbon Dioxide BUN Creatinine Glucose POC Glucose 124 H 149 H Hemoglobin A1c Lactic Acid Calcium Phosphorus Magnesium Iron TIBC AST ALT Troponin T C-Reactive Protein Total Protein Albumin Triglycerides LDL Cholesterol Direct HDL Cholesterol Urine WBC (Auto) Vancomycin Trough 28.6 H Salicylates Acetaminophen % CD3 Cells % CD19 Cells Absolute CD19 Count Miscellaneous Test Crossmatch 09/06/18 09/06/18 09/07/18 17:43 20:08 00:39 WBC RBC Hgb Hct RDW Plt Count Lymph % (Auto) [place] % (Auto) Lymph # [place] # Seg Neutrophils % Seg Neuts % (Manual) Lymphocytes % (Manual) Nucleated RBC % Seg Neutrophils # Seg Neutrophils # Man Lymphocytes # (Manual) D-Dimer POC ABG pH POC ABG pCO2 POC ABG pO2 VBG pH Sodium Potassium Chloride Carbon Dioxide BUN Creatinine Glucose POC Glucose 138 H 118 H 131 H Hemoglobin A1c Lactic Acid Calcium Phosphorus Magnesium Iron TIBC AST ALT Troponin T C-Reactive Protein Total Protein Albumin Triglycerides LDL Cholesterol Direct HDL Cholesterol Urine WBC (Auto) Vancomycin Trough Salicylates Acetaminophen % CD3 Cells % CD19 Cells Absolute CD19 Count Miscellaneous Test Crossmatch 09/07/18 09/07/18 09/07/18 05:40 05:40 12:03 WBC RBC 2.40 L Hgb 7.3 L Hct 22.5 L RDW 17.8 H Plt Count 92 L Lymph % (Auto) [place] % (Auto) Lymph # [place] # Seg Neutrophils % Seg Neuts % (Manual) 80.0 H Lymphocytes % (Manual) Nucleated RBC % 1.0 H Seg Neutrophils # Seg Neutrophils # Man Lymphocytes # (Manual) 0.8 L D-Dimer POC ABG pH POC ABG pCO2 POC ABG pO2 VBG pH Sodium Potassium Chloride 109.8 H Carbon Dioxide BUN 26 H Creatinine Glucose 118 H POC Glucose 145 H Hemoglobin A1c Lactic Acid Calcium 8.0 L Phosphorus Magnesium Iron 26 L TIBC 150 L AST 88 H ALT Troponin T C-Reactive Protein Total Protein 5.8 L Albumin 2.1 L Triglycerides LDL Cholesterol Direct HDL Cholesterol Urine WBC (Auto) Vancomycin Trough Salicylates Acetaminophen % CD3 Cells % CD19 Cells Absolute CD19 Count Miscellaneous Test Crossmatch 09/07/18 09/07/18 09/08/18 17:39 23:21 05:48 WBC RBC Hgb Hct RDW Plt Count Lymph % (Auto) [place] % (Auto) Lymph # [place] # Seg Neutrophils % Seg Neuts % (Manual) Lymphocytes % (Manual) Nucleated RBC % Seg Neutrophils # Seg Neutrophils # Man Lymphocytes # (Manual) D-Dimer POC ABG pH POC ABG pCO2 POC ABG pO2 VBG pH Sodium Potassium Chloride Carbon Dioxide BUN Creatinine Glucose POC Glucose 128 H 136 H 129 H Hemoglobin A1c Lactic Acid Calcium Phosphorus Magnesium Iron TIBC AST ALT Troponin T C-Reactive Protein Total Protein Albumin Triglycerides LDL Cholesterol Direct HDL Cholesterol Urine WBC (Auto) Vancomycin Trough Salicylates Acetaminophen % CD3 Cells % CD19 Cells Absolute CD19 Count Miscellaneous Test Crossmatch 09/08/18 09/08/18 09/08/18 06:17 10:06 10:42 WBC RBC Hgb Hct RDW Plt Count Lymph % (Auto) [place] % (Auto) Lymph # [place] # Seg Neutrophils % Seg Neuts % (Manual) Lymphocytes % (Manual) Nucleated RBC % Seg Neutrophils # Seg Neutrophils # Man Lymphocytes # (Manual) D-Dimer POC ABG pH 7.292 L 7.276 L POC ABG pCO2 56.9 H 65.1 H POC ABG pO2 VBG pH Sodium 146 H Potassium Chloride 109.1 H Carbon Dioxide BUN 28 H Creatinine Glucose 165 H POC Glucose Hemoglobin A1c Lactic Acid Calcium Phosphorus Magnesium Iron TIBC AST ALT Troponin T C-Reactive Protein Total Protein Albumin Triglycerides LDL Cholesterol Direct HDL Cholesterol Urine WBC (Auto) Vancomycin Trough Salicylates Acetaminophen % CD3 Cells % CD19 Cells Absolute CD19 Count Miscellaneous Test Crossmatch 09/08/18 09/08/18 09/08/18 11:06 18:07 23:20 WBC RBC Hgb Hct RDW Plt Count Lymph % (Auto) [place] % (Auto) Lymph # [place] # Seg Neutrophils % Seg Neuts % (Manual) Lymphocytes % (Manual) Nucleated RBC % Seg Neutrophils # Seg Neutrophils # Man Lymphocytes # (Manual) D-Dimer POC ABG pH POC ABG pCO2 POC ABG pO2 VBG pH Sodium Potassium Chloride Carbon Dioxide BUN Creatinine Glucose POC Glucose 165 H 140 H 124 H Hemoglobin A1c Lactic Acid Calcium Phosphorus Magnesium Iron TIBC AST ALT Troponin T C-Reactive Protein Total Protein Albumin Triglycerides LDL Cholesterol Direct HDL Cholesterol Urine WBC (Auto) Vancomycin Trough Salicylates Acetaminophen % CD3 Cells % CD19 Cells Absolute CD19 Count Miscellaneous Test Crossmatch 09/09/18 09/09/18 09/09/18 05:04 08:39 08:39 WBC RBC 2.60 L Hgb 8.1 L Hct 24.6 L RDW 17.9 H Plt Count Lymph % (Auto) [place] % (Auto) Lymph # [place] # Seg Neutrophils % Seg Neuts % (Manual) Lymphocytes % (Manual) Nucleated RBC % Seg Neutrophils # Seg Neutrophils # Man Lymphocytes # (Manual) D-Dimer POC ABG pH POC ABG pCO2 POC ABG pO2 VBG pH Sodium Potassium Chloride Carbon Dioxide BUN 32 H Creatinine Glucose 150 H POC Glucose 168 H Hemoglobin A1c Lactic Acid Calcium Phosphorus Magnesium Iron TIBC AST ALT Troponin T C-Reactive Protein Total Protein Albumin Triglycerides LDL Cholesterol Direct HDL Cholesterol Urine WBC (Auto) Vancomycin Trough Salicylates Acetaminophen % CD3 Cells % CD19 Cells Absolute CD19 Count Miscellaneous Test Crossmatch 09/09/18 09/10/18 09/10/18 12:41 04:20 04:20 WBC RBC 2.49 L Hgb 7.7 L Hct 23.4 L RDW 18.0 H Plt Count Lymph % (Auto) 8.2 L [place] % (Auto) Lymph # 0.7 L [place] # Seg Neutrophils % 87.7 H Seg Neuts % (Manual) Lymphocytes % (Manual) Nucleated RBC % Seg Neutrophils # Seg Neutrophils # Man Lymphocytes # (Manual) D-Dimer POC ABG pH POC ABG pCO2 POC ABG pO2 VBG pH Sodium Potassium Chloride Carbon Dioxide 31 H BUN 39 H Creatinine Glucose 183 H POC Glucose 150 H Hemoglobin A1c Lactic Acid Calcium Phosphorus Magnesium Iron TIBC AST 85 H ALT 58 H Troponin T C-Reactive Protein Total Protein Albumin 2.5 L Triglycerides LDL Cholesterol Direct HDL Cholesterol Urine WBC (Auto) Vancomycin Trough Salicylates Acetaminophen % CD3 Cells % CD19 Cells Absolute CD19 Count Miscellaneous Test Crossmatch 09/10/18 09/10/18 09/10/18 04:39 05:06 11:17 WBC RBC Hgb Hct RDW Plt Count Lymph % (Auto) [place] % (Auto) Lymph # [place] # Seg Neutrophils % Seg Neuts % (Manual) Lymphocytes % (Manual) Nucleated RBC % Seg Neutrophils # Seg Neutrophils # Man Lymphocytes # (Manual) D-Dimer POC ABG pH POC ABG pCO2 51.4 H POC ABG pO2 VBG pH Sodium Potassium Chloride Carbon Dioxide BUN Creatinine Glucose POC Glucose 185 H 159 H Hemoglobin A1c Lactic Acid Calcium Phosphorus Magnesium Iron TIBC AST ALT Troponin T C-Reactive Protein Total Protein Albumin Triglycerides LDL Cholesterol Direct HDL Cholesterol Urine WBC (Auto) Vancomycin Trough Salicylates Acetaminophen % CD3 Cells % CD19 Cells Absolute CD19 Count Miscellaneous Test Crossmatch 09/10/18 09/11/18 09/11/18 16:57 00:17 01:10 WBC RBC Hgb Hct RDW Plt Count Lymph % (Auto) [place] % (Auto) Lymph # [place] # Seg Neutrophils % Seg Neuts % (Manual) Lymphocytes % (Manual) Nucleated RBC % Seg Neutrophils # Seg Neutrophils # Man Lymphocytes # (Manual) D-Dimer POC ABG pH POC ABG pCO2 POC ABG pO2 VBG pH Sodium Potassium Chloride Carbon Dioxide 34 H BUN 44 H Creatinine Glucose 154 H POC Glucose 177 H 163 H Hemoglobin A1c Lactic Acid Calcium Phosphorus Magnesium Iron TIBC AST 86 H ALT 68 H Troponin T C-Reactive Protein Total Protein Albumin 2.6 L Triglycerides LDL Cholesterol Direct HDL Cholesterol Urine WBC (Auto) Vancomycin Trough Salicylates Acetaminophen % CD3 Cells % CD19 Cells Absolute CD19 Count Miscellaneous Test Crossmatch 09/11/18 09/11/18 09/11/18 01:10 06:03 09:00 WBC 13.7 H RBC 2.61 L Hgb 8.0 L Hct 24.6 L RDW 19.1 H Plt Count Lymph % (Auto) 6.1 L [place] % (Auto) Lymph # 0.8 L [place] # Seg Neutrophils % 87.7 H Seg Neuts % (Manual) Lymphocytes % (Manual) Nucleated RBC % Seg Neutrophils # 12.0 H Seg Neutrophils # Man Lymphocytes # (Manual) D-Dimer POC ABG pH POC ABG pCO2 POC ABG pO2 VBG pH Sodium Potassium Chloride Carbon Dioxide 33 H BUN 45 H Creatinine Glucose 147 H POC Glucose 180 H Hemoglobin A1c Lactic Acid Calcium Phosphorus Magnesium Iron TIBC AST ALT Troponin T C-Reactive Protein Total Protein Albumin Triglycerides LDL Cholesterol Direct HDL Cholesterol Urine WBC (Auto) Vancomycin Trough Salicylates Acetaminophen % CD3 Cells % CD19 Cells Absolute CD19 Count Miscellaneous Test Crossmatch 09/11/18 09/11/18 09/11/18 11:14 11:31 17:11 WBC RBC Hgb Hct RDW Plt Count Lymph % (Auto) [place] % (Auto) Lymph # [place] # Seg Neutrophils % Seg Neuts % (Manual) Lymphocytes % (Manual) Nucleated RBC % Seg Neutrophils # Seg Neutrophils # Man Lymphocytes # (Manual) D-Dimer POC ABG pH 7.498 H POC ABG pCO2 46.3 H POC ABG pO2 VBG pH Sodium Potassium Chloride Carbon Dioxide BUN Creatinine Glucose POC Glucose 163 H 202 H Hemoglobin A1c Lactic Acid Calcium Phosphorus Magnesium Iron TIBC AST ALT Troponin T C-Reactive Protein Total Protein Albumin Triglycerides LDL Cholesterol Direct HDL Cholesterol Urine WBC (Auto) Vancomycin Trough Salicylates Acetaminophen % CD3 Cells % CD19 Cells Absolute CD19 Count Miscellaneous Test Crossmatch 09/11/18 09/12/18 09/12/18 23:49 03:16 05:30 WBC RBC 2.36 L Hgb 7.3 L Hct 22.3 L RDW 18.4 H Plt Count Lymph % (Auto) 13.0 L [place] % (Auto) 9.3 H Lymph # 1.1 L [place] # Seg Neutrophils % 77.5 H Seg Neuts % (Manual) Lymphocytes % (Manual) Nucleated RBC % Seg Neutrophils # Seg Neutrophils # Man Lymphocytes # (Manual) D-Dimer POC ABG pH 7.517 H POC ABG pCO2 48.8 H POC ABG pO2 VBG pH Sodium Potassium Chloride Carbon Dioxide BUN Creatinine Glucose POC Glucose 163 H Hemoglobin A1c Lactic Acid Calcium Phosphorus Magnesium Iron TIBC AST ALT Troponin T C-Reactive Protein Total Protein Albumin Triglycerides LDL Cholesterol Direct HDL Cholesterol Urine WBC (Auto) Vancomycin Trough Salicylates Acetaminophen % CD3 Cells % CD19 Cells Absolute CD19 Count Miscellaneous Test Crossmatch 09/12/18 09/12/18 09/12/18 05:30 06:07 11:36 WBC RBC Hgb Hct RDW Plt Count Lymph % (Auto) [place] % (Auto) Lymph # [place] # Seg Neutrophils % Seg Neuts % (Manual) Lymphocytes % (Manual) Nucleated RBC % Seg Neutrophils # Seg Neutrophils # Man Lymphocytes # (Manual) D-Dimer POC ABG pH POC ABG pCO2 POC ABG pO2 VBG pH Sodium 148 H Potassium Chloride Carbon Dioxide 36 H BUN 46 H Creatinine Glucose 152 H POC Glucose 172 H 212 H Hemoglobin A1c Lactic Acid Calcium Phosphorus Magnesium Iron TIBC AST ALT Troponin T C-Reactive Protein Total Protein Albumin Triglycerides LDL Cholesterol Direct HDL Cholesterol Urine WBC (Auto) Vancomycin Trough Salicylates Acetaminophen % CD3 Cells % CD19 Cells Absolute CD19 Count Miscellaneous Test Crossmatch 09/12/18 09/12/18 09/13/18 18:02 23:19 03:55 WBC RBC Hgb Hct RDW Plt Count Lymph % (Auto) [place] % (Auto) Lymph # [place] # Seg Neutrophils % Seg Neuts % (Manual) Lymphocytes % (Manual) Nucleated RBC % Seg Neutrophils # Seg Neutrophils # Man Lymphocytes # (Manual) D-Dimer POC ABG pH 7.520 H POC ABG pCO2 48.0 H POC ABG pO2 58 L VBG pH Sodium Potassium Chloride Carbon Dioxide BUN Creatinine Glucose POC Glucose 142 H 161 H Hemoglobin A1c Lactic Acid Calcium Phosphorus Magnesium Iron TIBC AST ALT Troponin T C-Reactive Protein Total Protein Albumin Triglycerides LDL Cholesterol Direct HDL Cholesterol Urine WBC (Auto) Vancomycin Trough Salicylates Acetaminophen % CD3 Cells % CD19 Cells Absolute CD19 Count Miscellaneous Test Crossmatch 09/13/18 09/13/18 09/13/18 05:11 05:25 05:25 WBC RBC 2.38 L Hgb 7.6 L Hct 22.4 L RDW 18.6 H Plt Count Lymph % (Auto) [place] % (Auto) Lymph # [place] # Seg Neutrophils % Seg Neuts % (Manual) Lymphocytes % (Manual) Nucleated RBC % Seg Neutrophils # Seg Neutrophils # Man Lymphocytes # (Manual) D-Dimer POC ABG pH POC ABG pCO2 POC ABG pO2 VBG pH Sodium Potassium 3.2 L Chloride 97.5 L Carbon Dioxide 38 H BUN 38 H Creatinine 0.6 L Glucose 120 H POC Glucose 139 H Hemoglobin A1c Lactic Acid Calcium 8.1 L Phosphorus Magnesium Iron TIBC AST 120 H ALT 124 H Troponin T C-Reactive Protein Total Protein 5.9 L Albumin 2.6 L Triglycerides LDL Cholesterol Direct HDL Cholesterol Urine WBC (Auto) Vancomycin Trough Salicylates Acetaminophen % CD3 Cells % CD19 Cells Absolute CD19 Count Miscellaneous Test Crossmatch 09/13/18 09/13/18 09/13/18 11:31 17:46 23:23 WBC RBC Hgb Hct RDW Plt Count Lymph % (Auto) [place] % (Auto) Lymph # [place] # Seg Neutrophils % Seg Neuts % (Manual) Lymphocytes % (Manual) Nucleated RBC % Seg Neutrophils # Seg Neutrophils # Man Lymphocytes # (Manual) D-Dimer POC ABG pH POC ABG pCO2 POC ABG pO2 VBG pH Sodium Potassium Chloride Carbon Dioxide BUN Creatinine Glucose POC Glucose 160 H 145 H 135 H Hemoglobin A1c Lactic Acid Calcium Phosphorus Magnesium Iron TIBC AST ALT Troponin T C-Reactive Protein Total Protein Albumin Triglycerides LDL Cholesterol Direct HDL Cholesterol Urine WBC (Auto) Vancomycin Trough Salicylates Acetaminophen % CD3 Cells % CD19 Cells Absolute CD19 Count Miscellaneous Test Crossmatch 09/14/18 09/14/18 09/14/18 03:56 04:55 04:55 WBC RBC 2.28 L Hgb 7.1 L Hct 21.4 L RDW 18.2 H Plt Count Lymph % (Auto) [place] % (Auto) Lymph # [place] # Seg Neutrophils % 76.4 H Seg Neuts % (Manual) Lymphocytes % (Manual) Nucleated RBC % Seg Neutrophils # Seg Neutrophils # Man Lymphocytes # (Manual) D-Dimer POC ABG pH 7.503 H POC ABG pCO2 49.1 H POC ABG pO2 79 L VBG pH Sodium Potassium Chloride 97.7 L Carbon Dioxide 35 H BUN 32 H Creatinine 0.6 L Glucose 114 H POC Glucose Hemoglobin A1c Lactic Acid Calcium Phosphorus Magnesium Iron TIBC AST 60 H ALT 88 H Troponin T C-Reactive Protein Total Protein 5.6 L Albumin 2.2 L Triglycerides LDL Cholesterol Direct HDL Cholesterol Urine WBC (Auto) Vancomycin Trough Salicylates Acetaminophen % CD3 Cells % CD19 Cells Absolute CD19 Count Miscellaneous Test Crossmatch 09/14/18 09/14/18 09/14/18 05:14 12:00 12:27 WBC RBC Hgb Hct RDW Plt Count Lymph % (Auto) [place] % (Auto) Lymph # [place] # Seg Neutrophils % Seg Neuts % (Manual) Lymphocytes % (Manual) Nucleated RBC % Seg Neutrophils # Seg Neutrophils # Man Lymphocytes # (Manual) D-Dimer POC ABG pH POC ABG pCO2 POC ABG pO2 VBG pH Sodium Potassium Chloride Carbon Dioxide BUN Creatinine Glucose POC Glucose 115 H 125 H Hemoglobin A1c Lactic Acid Calcium Phosphorus Magnesium Iron TIBC AST ALT Troponin T C-Reactive Protein Total Protein Albumin Triglycerides LDL Cholesterol Direct HDL Cholesterol Urine WBC (Auto) Vancomycin Trough Salicylates Acetaminophen % CD3 Cells % CD19 Cells Absolute CD19 Count Miscellaneous Test Crossmatch See Detail 09/14/18 09/15/18 09/15/18 17:54 03:49 04:10 WBC RBC 2.46 L Hgb 7.7 L Hct 23.0 L RDW 18.6 H Plt Count Lymph % (Auto) [place] % (Auto) Lymph # 1.1 L [place] # Seg Neutrophils % 74.2 H Seg Neuts % (Manual) Lymphocytes % (Manual) Nucleated RBC % Seg Neutrophils # Seg Neutrophils # Man Lymphocytes # (Manual) D-Dimer POC ABG pH POC ABG pCO2 58.2 H POC ABG pO2 VBG pH Sodium Potassium Chloride Carbon Dioxide BUN Creatinine Glucose POC Glucose 138 H Hemoglobin A1c Lactic Acid Calcium Phosphorus Magnesium Iron TIBC AST ALT Troponin T C-Reactive Protein Total Protein Albumin Triglycerides LDL Cholesterol Direct HDL Cholesterol Urine WBC (Auto) Vancomycin Trough Salicylates Acetaminophen % CD3 Cells % CD19 Cells Absolute CD19 Count Miscellaneous Test Crossmatch 09/15/18 09/15/18 09/15/18 04:10 11:36 11:36 WBC RBC Hgb Hct RDW Plt Count Lymph % (Auto) [place] % (Auto) Lymph # [place] # Seg Neutrophils % Seg Neuts % (Manual) Lymphocytes % (Manual) Nucleated RBC % Seg Neutrophils # Seg Neutrophils # Man Lymphocytes # (Manual) D-Dimer POC ABG pH POC ABG pCO2 53.5 H POC ABG pO2 67 L VBG pH Sodium Potassium Chloride Carbon Dioxide 35 H BUN 21 H Creatinine Glucose POC Glucose 108 H Hemoglobin A1c Lactic Acid Calcium 7.9 L Phosphorus Magnesium Iron TIBC AST ALT Troponin T C-Reactive Protein Total Protein Albumin Triglycerides LDL Cholesterol Direct HDL Cholesterol Urine WBC (Auto) Vancomycin Trough Salicylates Acetaminophen % CD3 Cells % CD19 Cells Absolute CD19 Count Miscellaneous Test Crossmatch 09/16/18 09/16/18 09/16/18 01:16 04:25 11:30 WBC RBC 2.77 L Hgb 8.5 L Hct 25.6 L RDW 17.9 H Plt Count Lymph % (Auto) [place] % (Auto) Lymph # [place] # Seg Neutrophils % Seg Neuts % (Manual) Lymphocytes % (Manual) Nucleated RBC % Seg Neutrophils # Seg Neutrophils # Man Lymphocytes # (Manual) D-Dimer POC ABG pH 7.489 H POC ABG pCO2 47.6 H POC ABG pO2 62 L VBG pH Sodium Potassium Chloride Carbon Dioxide BUN Creatinine Glucose POC Glucose 108 H Hemoglobin A1c Lactic Acid Calcium Phosphorus Magnesium Iron TIBC AST ALT Troponin T C-Reactive Protein Total Protein Albumin Triglycerides LDL Cholesterol Direct HDL Cholesterol Urine WBC (Auto) Vancomycin Trough Salicylates Acetaminophen % CD3 Cells % CD19 Cells Absolute CD19 Count Miscellaneous Test Crossmatch 09/16/18 09/16/18 09/17/18 11:30 23:07 04:22 WBC RBC Hgb Hct RDW Plt Count Lymph % (Auto) [place] % (Auto) Lymph # [place] # Seg Neutrophils % Seg Neuts % (Manual) Lymphocytes % (Manual) Nucleated RBC % Seg Neutrophils # Seg Neutrophils # Man Lymphocytes # (Manual) D-Dimer POC ABG pH 7.576 H POC ABG pCO2 POC ABG pO2 58 L VBG pH Sodium Potassium 3.2 L Chloride 96.6 L Carbon Dioxide 34 H BUN Creatinine Glucose 128 H POC Glucose 147 H Hemoglobin A1c Lactic Acid Calcium Phosphorus Magnesium Iron TIBC AST ALT Troponin T C-Reactive Protein Total Protein Albumin Triglycerides LDL Cholesterol Direct HDL Cholesterol Urine WBC (Auto) Vancomycin Trough Salicylates Acetaminophen % CD3 Cells % CD19 Cells Absolute CD19 Count Miscellaneous Test Crossmatch 09/17/18 09/17/18 09/17/18 05:50 10:15 14:59 WBC RBC Hgb Hct RDW Plt Count Lymph % (Auto) [place] % (Auto) Lymph # [place] # Seg Neutrophils % Seg Neuts % (Manual) Lymphocytes % (Manual) Nucleated RBC % Seg Neutrophils # Seg Neutrophils # Man Lymphocytes # (Manual) D-Dimer POC ABG pH POC ABG pCO2 POC ABG pO2 VBG pH Sodium Potassium 2.6 L* Chloride 96.3 L Carbon Dioxide 33 H BUN Creatinine Glucose 151 H POC Glucose 138 H 151 H Hemoglobin A1c Lactic Acid Calcium Phosphorus Magnesium Iron TIBC AST ALT Troponin T C-Reactive Protein Total Protein Albumin Triglycerides LDL Cholesterol Direct HDL Cholesterol Urine WBC (Auto) Vancomycin Trough Salicylates Acetaminophen % CD3 Cells % CD19 Cells Absolute CD19 Count Miscellaneous Test Crossmatch 09/17/18 09/17/18 09/18/18 17:51 Unknown 00:11 WBC RBC Hgb Hct RDW Plt Count Lymph % (Auto) [place] % (Auto) Lymph # [place] # Seg Neutrophils % Seg Neuts % (Manual) Lymphocytes % (Manual) Nucleated RBC % Seg Neutrophils # Seg Neutrophils # Man Lymphocytes # (Manual) D-Dimer POC ABG pH POC ABG pCO2 POC ABG pO2 VBG pH Sodium Potassium 2.7 L* Chloride 97.5 L Carbon Dioxide 32 H BUN Creatinine Glucose 142 H POC Glucose 149 H 128 H Hemoglobin A1c Lactic Acid Calcium Phosphorus Magnesium Iron TIBC AST ALT Troponin T C-Reactive Protein Total Protein Albumin Triglycerides LDL Cholesterol Direct HDL Cholesterol Urine WBC (Auto) Vancomycin Trough Salicylates Acetaminophen % CD3 Cells % CD19 Cells Absolute CD19 Count Miscellaneous Test Crossmatch 09/18/18 09/18/18 09/18/18 04:20 04:20 04:28 WBC RBC 2.94 L Hgb 9.0 L Hct 27.2 L RDW 17.7 H Plt Count Lymph % (Auto) [place] % (Auto) 12.1 H Lymph # 1.0 L [place] # Seg Neutrophils % 70.2 H Seg Neuts % (Manual) Lymphocytes % (Manual) Nucleated RBC % Seg Neutrophils # Seg Neutrophils # Man Lymphocytes # (Manual) D-Dimer POC ABG pH 7.563 H POC ABG pCO2 POC ABG pO2 VBG pH Sodium Potassium 3.0 L Chloride Carbon Dioxide 33 H BUN Creatinine Glucose 133 H POC Glucose Hemoglobin A1c Lactic Acid Calcium Phosphorus Magnesium Iron TIBC AST ALT Troponin T C-Reactive Protein Total Protein Albumin Triglycerides LDL Cholesterol Direct HDL Cholesterol Urine WBC (Auto) Vancomycin Trough Salicylates Acetaminophen % CD3 Cells % CD19 Cells Absolute CD19 Count Miscellaneous Test Crossmatch 09/18/18 09/18/18 09/19/18 06:19 14:45 00:13 WBC RBC Hgb Hct RDW Plt Count Lymph % (Auto) [place] % (Auto) Lymph # [place] # Seg Neutrophils % Seg Neuts % (Manual) Lymphocytes % (Manual) Nucleated RBC % Seg Neutrophils # Seg Neutrophils # Man Lymphocytes # (Manual) D-Dimer POC ABG pH POC ABG pCO2 POC ABG pO2 VBG pH Sodium Potassium Chloride Carbon Dioxide BUN Creatinine Glucose POC Glucose 140 H 164 H 111 H Hemoglobin A1c Lactic Acid Calcium Phosphorus Magnesium Iron TIBC AST ALT Troponin T C-Reactive Protein Total Protein Albumin Triglycerides LDL Cholesterol Direct HDL Cholesterol Urine WBC (Auto) Vancomycin Trough Salicylates Acetaminophen % CD3 Cells % CD19 Cells Absolute CD19 Count Miscellaneous Test Crossmatch 09/19/18 09/19/18 09/19/18 03:38 05:08 05:20 WBC RBC Hgb Hct RDW Plt Count Lymph % (Auto) [place] % (Auto) Lymph # [place] # Seg Neutrophils % Seg Neuts % (Manual) Lymphocytes % (Manual) Nucleated RBC % Seg Neutrophils # Seg Neutrophils # Man Lymphocytes # (Manual) D-Dimer POC ABG pH 7.502 H POC ABG pCO2 34.6 L POC ABG pO2 73 L VBG pH Sodium Potassium 2.7 L* Chloride Carbon Dioxide BUN Creatinine 0.6 L Glucose 119 H POC Glucose 128 H Hemoglobin A1c Lactic Acid Calcium Phosphorus Magnesium Iron TIBC AST ALT Troponin T C-Reactive Protein Total Protein Albumin Triglycerides LDL Cholesterol Direct HDL Cholesterol Urine WBC (Auto) Vancomycin Trough Salicylates Acetaminophen % CD3 Cells % CD19 Cells Absolute CD19 Count Miscellaneous Test Crossmatch Chest x-ray: pending Allied health notes reviewed: nursing
[2018-09-19] MEDS: VANCOMYCIN PO PO SCH ×2 (13:57→19:27)
--- NOTE | 2018-09-19 17:30 | Progress Note ---
Assessment and Plan /Acute hypoxic hypercapnic respiratory failure; extubated 08/29/18 Re Intubated 09/02/18, vent dependent s/p trach on 09/14/18 Status post bronchoscopy, BAL negative cont nebulizers, pulmonary following /Dysphagia - cannot be placed PEG as could not be transilluminated stomach on EGD - Now planned to get PEG done by IR today, cont TF with dobhoff /Hypokalemia, cont to replete, normal Mg level, likely from diarrhea /Sepsis; new fever 102.6 on 09/18. Initially treated for aspiration pneumonia and Camryn glabrata fungemia; s/p micafungin, meropenem and Vanco per ID. Now being treated for possible C.def with vancomycin po, follow cx / Recent Camryn glabrata fungemia: treated /Thrombocytopenia: Platelet count is Stable Lovenox changed to Arixtra /Anemia: s/p transfusion[4 PRBC] Stool for occult blood x 2 negative, hematology following will transfuse additional unit -Recent EGD at [facility] 08/08/2018 revealing irregular Z line, gastritis and small hiatal hernia - Recent colonoscopy at [facility] 08/08/2018 revealing sigmoid polyp, trans verse colon polyps, inflamed hemorrhoids and diverticulosis /Hypomagnesemia; Hypernatremia; resolved, /Bileral lower extremity DVT; anticoagulation with arixtra CTA chest negative for PE /Hypertension; continue current antihypertensives /Severe malnutrition/hypoalbuminemia; Dietitian following, On TF /Acute kidney injury; probably secondary to ATN, Resolved, /Acute systolic congestive heart failure; EF 25-30%, Cardio following, monitor ins/os Previous echo 03/30/2016 at [facility] revealed normal LVEF Previous stress MPI 03/29/2016 at [facility] revealed no ischemia /Elevated Transaminases; resolved /-DVT prophylaxis; on full dose arixtra, on hold now for possible trach/peg tomorrow Consults and recommendations noted and appreciated Plan of care reviewed with the patient's nurse and family The high probability of a clinically significant, sudden or life threatening deterioration of the [respiratory, cardiology, ID, renal and metabolic] system(s) required my full and direct attention, intervention and personal management. The aggregate critical care time was [32] minutes. This time is in addition to time spent performing reported procedures but includes the following: [x] Data Review and interpretation [x] Patient assessment and monitoring of vital signs [x] Documentation [x] Medication orders and management Disposition: Plan to d/c to LTAC after PEG. Brief History: 68-year-old female patient with history of COPD, arthritis s/p C-spine and lumbar spine surgery, Chronic pain syndrome who was found unconscious in her feces and vomitus, patients family was in [place] for a golf tournament. Patient was brought to the emergency room noted to be severely hypoxic and tachypneic, promptly intubated placed on ventilatory support and admitted to ICU patient was also noted to have possible aspiration pneumonia, completed treatment recommended by ID .currently monitoring of antibiotics . patient also had acute gastroenteritis acute kidney injury nonspecific elevation of troponins as well as septic shock evaluated by multiple specialties successfully weaned and extubated on 08/29/2018 however patient again went into acute respiratory failure requiring reintubation on 09/02/2018, Since then patient is vent dependent, planned for trach and PEG and placement. She is also being treated for acute b/l DVT diagnosed following admission while she was on DVT Px. s/p 4units of PRBC transfusion for anemia, no acute source of active bleeding so far. Spiking temp again with diarrhea, started on vancomycin PO, ID following. Work up so far: CT abdomen/pelvis CTA chest Head CT 2d echo Renal US CXRs abdominal xrys Hospitalist Physical General appearance: Present: no acute distress, well-nourished, obese, other (on vent with trach) - EENT Eyes: Present: PERRL, EOM intact - Neck Neck: Present: supple, trach on place - Respiratory Respiratory effort: normal Respiratory: bilateral: diminished, rhonchi, negative: rales, wheezing - Cardiovascular Rhythm: regular Heart Sounds: Present: S1 & S2 - Extremities Extremities: no ischemia, No edema - Abdominal General gastrointestinal: soft, non-tender, non-distended, normal bowel sounds - Integumentary Integumentary: Present: clear, warm - Psychiatric Psychiatric: cooperative, other (on vent) - Neurologic Neurologic: move extremities unpurposefull Subjective Date of service: 09/19/18 Principal diagnosis: Acute hypoxemic hypercapnic Resp failure; AE-COPD; Acute kidney injury Interval history: Patient seen and examined medical records reviewed Patient on ventilator support with trach Alert and awake not in acute distress Vital signs noted, spiked low grade temp patient's family at bedside updated planned for TF today Objective - Constitutional Vitals: Vital Signs - 12hr 09/19/18 09/19/18 09/19/18 05:31 05:45 06:01 Temperature Pulse Rate 85 84 83 Pulse Rate [ Anterior Bilateral] Pulse Rate [ From Monitor] Respiratory 22 29 H 28 H Rate Respiratory Rate [Anterior Bilateral] Blood Pressure 143/64 143/64 152/54 O2 Sat by Pulse 96 96 96 Oximetry O2 Sat by Pulse Oximetry [ Assessment] 09/19/18 09/19/18 09/19/18 06:15 06:30 06:45 Temperature Pulse Rate 83 81 76 Pulse Rate [ Anterior Bilateral] Pulse Rate [ From Monitor] Respiratory 24 26 H 30 H Rate Respiratory Rate [Anterior Bilateral] Blood Pressure 152/54 143/62 143/62 O2 Sat by Pulse 95 94 97 Oximetry O2 Sat by Pulse Oximetry [ Assessment] 09/19/18 09/19/18 09/19/18 06:48 07:01 07:15 Temperature Pulse Rate 75 81 81 Pulse Rate [ Anterior Bilateral] Pulse Rate [ From Monitor] Respiratory 24 24 Rate Respiratory Rate [Anterior Bilateral] Blood Pressure 143/62 165/84 165/84 O2 Sat by Pulse 95 98 Oximetry O2 Sat by Pulse Oximetry [ Assessment] 09/19/18 09/19/18 09/19/18 07:30 07:45 08:00 Temperature 99.4 F Pulse Rate 79 75 Pulse Rate [ Anterior Bilateral] Pulse Rate [ 80 From Monitor] Respiratory 30 H 29 H 20 Rate Respiratory Rate [Anterior Bilateral] Blood Pressure 179/66 179/66 O2 Sat by Pulse 96 97 98 Oximetry O2 Sat by Pulse Oximetry [ Assessment] 09/19/18 09/19/18 09/19/18 08:01 08:12 08:15 Temperature Pulse Rate 79 77 82 Pulse Rate [ Anterior Bilateral] Pulse Rate [ From Monitor] Respiratory 26 H 29 H 22 Rate Respiratory Rate [Anterior Bilateral] Blood Pressure 175/65 175/65 175/65 O2 Sat by Pulse 97 97 96 Oximetry O2 Sat by Pulse Oximetry [ Assessment] 09/19/18 09/19/18 09/19/18 08:19 08:22 08:30 Temperature Pulse Rate 78 Pulse Rate [ 87 Anterior Bilateral] Pulse Rate [ From Monitor] Respiratory 22 Rate Respiratory 29 H Rate [Anterior Bilateral] Blood Pressure 181/72 O2 Sat by Pulse 97 Oximetry O2 Sat by Pulse 98 Oximetry [ Assessment] 09/19/18 09/19/18 09/19/18 08:39 08:45 09:01 Temperature Pulse Rate 81 81 Pulse Rate [ 79 Anterior Bilateral] Pulse Rate [ From Monitor] Respiratory 27 H 27 H Rate Respiratory 29 H Rate [Anterior Bilateral] Blood Pressure 181/72 178/65 O2 Sat by Pulse 98 97 Oximetry O2 Sat by Pulse Oximetry [ Assessment] 09/19/18 09/19/18 09/19/18 09:15 09:31 09:45 Temperature Pulse Rate 81 76 77 Pulse Rate [ Anterior Bilateral] Pulse Rate [ From Monitor] Respiratory 21 28 H 29 H Rate Respiratory Rate [Anterior Bilateral] Blood Pressure 178/65 171/71 171/71 O2 Sat by Pulse 97 97 99 Oximetry O2 Sat by Pulse Oximetry [ Assessment] 09/19/18 09/19/18 09/19/18 10:01 10:13 10:15 Temperature Pulse Rate 81 78 77 Pulse Rate [ Anterior Bilateral] Pulse Rate [ From Monitor] Respiratory 20 23 Rate Respiratory Rate [Anterior Bilateral] Blood Pressure 158/42 158/42 158/42 O2 Sat by Pulse 96 97 Oximetry O2 Sat by Pulse Oximetry [ Assessment] 09/19/18 09/19/18 09/19/18 10:31 10:45 11:01 Temperature Pulse Rate 76 71 75 Pulse Rate [ Anterior Bilateral] Pulse Rate [ From Monitor] Respiratory 25 H 25 H 21 Rate Respiratory Rate [Anterior Bilateral] Blood Pressure 158/42 158/42 158/42 O2 Sat by Pulse 98 98 97 Oximetry O2 Sat by Pulse Oximetry [ Assessment] 09/19/18 09/19/18 09/19/18 11:15 11:30 11:45 Temperature Pulse Rate 79 84 84 Pulse Rate [ Anterior Bilateral] Pulse Rate [ From Monitor] Respiratory 30 H 24 16 Rate Respiratory Rate [Anterior Bilateral] Blood Pressure 131/59 147/74 147/74 O2 Sat by Pulse 96 94 97 Oximetry O2 Sat by Pulse Oximetry [ Assessment] 09/19/18 09/19/18 09/19/18 12:00 12:15 12:25 Temperature 100.0 F H Pulse Rate 84 79 76 Pulse Rate [ Anterior Bilateral] Pulse Rate [ 76 From Monitor] Respiratory 26 H 31 H 28 H Rate Respiratory Rate [Anterior Bilateral] Blood Pressure 139/63 139/63 139/63 O2 Sat by Pulse 95 97 98 Oximetry O2 Sat by Pulse Oximetry [ Assessment] 09/19/18 09/19/18 09/19/18 12:31 12:45 13:00 Temperature Pulse Rate 76 72 71 Pulse Rate [ Anterior Bilateral] Pulse Rate [ From Monitor] Respiratory 26 H 26 H 22 Rate Respiratory Rate [Anterior Bilateral] Blood Pressure 146/71 139/63 158/69 O2 Sat by Pulse 98 98 96 Oximetry O2 Sat by Pulse Oximetry [ Assessment] 09/19/18 09/19/18 09/19/18 13:15 13:30 13:45 Temperature Pulse Rate 65 77 73 Pulse Rate [ Anterior Bilateral] Pulse Rate [ From Monitor] Respiratory 26 H 22 25 H Rate Respiratory Rate [Anterior Bilateral] Blood Pressure 158/69 158/69 158/69 O2 Sat by Pulse 98 98 98 Oximetry O2 Sat by Pulse Oximetry [ Assessment] 09/19/18 09/19/18 09/19/18 14:00 14:15 14:30 Temperature Pulse Rate 69 68 64 Pulse Rate [ Anterior Bilateral] Pulse Rate [ From Monitor] Respiratory 27 H 26 H 24 Rate Respiratory Rate [Anterior Bilateral] Blood Pressure 150/58 148/52 152/58 O2 Sat by Pulse 96 98 97 Oximetry O2 Sat by Pulse Oximetry [ Assessment] 09/19/18 09/19/18 09/19/18 14:45 15:00 15:15 Temperature Pulse Rate 63 72 65 Pulse Rate [ Anterior Bilateral] Pulse Rate [ From Monitor] Respiratory 26 H 24 25 H Rate Respiratory Rate [Anterior Bilateral] Blood Pressure 152/58 158/57 152/58 O2 Sat by Pulse 99 98 98 Oximetry O2 Sat by Pulse Oximetry [ Assessment] 09/19/18 09/19/18 09/19/18 15:30 15:32 15:42 Temperature Pulse Rate 72 Pulse Rate [ 72 75 Anterior Bilateral] Pulse Rate [ From Monitor] Respiratory 25 H Rate Respiratory 26 H 26 H Rate [Anterior Bilateral] Blood Pressure 159/47 O2 Sat by Pulse 100 Oximetry O2 Sat by Pulse Oximetry [ Assessment] 09/19/18 09/19/18 09/19/18 15:45 15:55 16:00 Temperature 99.1 F Pulse Rate 79 74 75 Pulse Rate [ Anterior Bilateral] Pulse Rate [ 70 From Monitor] Respiratory 22 30 H Rate Respiratory Rate [Anterior Bilateral] Blood Pressure 158/57 159/47 139/70 O2 Sat by Pulse 100 99 97 Oximetry O2 Sat by Pulse 97 Oximetry [ Assessment] 09/19/18 09/19/18 16:15 16:30 Temperature Pulse Rate 71 70 Pulse Rate [ Anterior Bilateral] Pulse Rate [ From Monitor] Respiratory 26 H 26 H Rate Respiratory Rate [Anterior Bilateral] Blood Pressure 139/70 148/70 O2 Sat by Pulse 99 98 Oximetry O2 Sat by Pulse Oximetry [ Assessment] - Labs CBC & Chem 7: 09/18/18 04:20 09/19/18 05:20 Labs: Abnormal lab results 09/19/18 09/19/18 09/19/18 Range/Units 00:13 03:38 05:08 POC ABG pH 7.502 H (7.35-7.45) POC ABG pCO2 34.6 L (35-45) POC ABG pO2 73 L (80-105) Potassium (3.6-5.0) mmol/L Creatinine (0.7-1.2) mg/dL Glucose (65-100) mg/dL POC Glucose 111 H 128 H (70-105) 09/19/18 Range/Units 05:20 POC ABG pH (7.35-7.45) POC ABG pCO2 (35-45) POC ABG pO2 (80-105) Potassium 2.7 L* (3.6-5.0) mmol/L Creatinine 0.6 L (0.7-1.2) mg/dL Glucose 119 H (65-100) mg/dL POC Glucose (70-105)
[2018-09-19] MEDS: DIAMOX IV SCH (21:05)
[2018-09-19] MEDS ORDERED: PANCREAZE DR 10,500 UNIT FEEDTUBE PRN (22:32)
[2018-09-19] MEDS ORDERED: SODIUM BICARBONATE FEEDTUBE PRN (22:32)
[2018-09-19] MEDS ORDERED: SIMPLE SYRUP FEEDTUBE PRN ×2 (22:32)
[2018-09-20] MEDS: VANCOMYCIN PO PO SCH ×4 (00:03→17:58)
[2018-09-20] MEDS: DILAUDID PO SCH ×4 (00:03→17:57)
[2018-09-20] MEDS: DUONEB *Not for PRN Use IH SCH ×4 (02:40→19:35)
[2018-09-20 04:47] LABS: Basophils # (Auto) 0.1 K/mm3 (0.0-0.1); Basophils % (Auto) 0.6 % (0.0-1.8); Hematocrit 27.1 % (30.3-42.9); Hemoglobin 9.1 gm/dl (10.1-14.3); Lymphocytes # (Auto) 1.1 K/mm3 (1.2-5.4); Lymphocytes % (Auto) 12.6 % (13.4-35.0); Mean Corpuscular HGB Conc 34 % (30-34); Mean Corpuscular Volume 94 fl (79-97); Monocytes # (Auto) 0.9 K/mm3 (0.0-0.8); Monocytes % (Auto) 10.7 % (0.0-7.3); Platelet Count 254 K/mm3 (140-440); Red Blood Count 2.89 M/mm3 (3.65-5.03); Red Cell Distribution Width 17.1 % (13.2-15.2)
[2018-09-20 05:08] LABS: BUN/Creatinine Ratio 24; Blood Urea Nitrogen 17 mg/dL (7-17); Calcium 8.5 mg/dL (8.4-10.2); Hemolysis Index 7
[2018-09-20] MEDS: APRESOLINE PO SCH ×3 (05:36→22:00)
[2018-09-20] MEDS ORDERED: POTASSIUM CHLORIDE FEEDTUBE ONE ×2 (06:00→14:00)
[2018-09-20] MEDS: BROVANA NEBU IH SCH ×2 (07:14→19:35)
[2018-09-20] MEDS: PULMICORT IH SCH ×2 (07:14→19:35)
[2018-09-20] MEDS ORDERED: K-DUR PO SCH (10:00)
[2018-09-20] MEDS ORDERED: GLUCAGEN IV ONE (10:00)
[2018-09-20] MEDS: HumaLOG SUB-Q SCH ×4 (10:19→17:59)
--- NOTE | 2018-09-20 10:22 | Event Note ---
Date: 09/20/18 Per report, the patient required 7 mg of Versed and 400 g of fentanyl with the addition of propofol in order to be sedated enough to undergo her tracheostomy at bedside. Given the patient's massive baseline pain medication requirements, the patient will be scheduled tomorrow to be done with anesthesia.
--- NOTE | 2018-09-20 10:29 | Progress Note ---
Assessment and Plan Cultures: 08/15/2018 blood culture: Camryn glabrata 1 of 4 08/15/2018 sputum culture: MSSA and Escherichia coli, wade susceptible 08/18/2018 blood culture: no growth 08/18/2018 urine culture: neg 08/22/2018 blood culture: no growth 08/25/2018 blood culture: no growth 09/02/2018 BAL cultures: resp almaz. Fungal and AFB pending: No growth thus far. 09/04/2018 blood culture: no growth thus far 09/04/2018 trach aspirate: no growth Fungitell was high (consistent with Candidemia), Aspergillus galactomannan negative. 09/13/2018 blood culture: no growth A/P: 68-year-old female with COPD, arthritis, history of multiple spinal surgeries was brought to the emergency room on 08/15/2018 with altered mental status: 1) Sepsis with septic shock: new fever 102.6 on 09/18. New fever 09/13 and 09/14. Etiology unclear. Blood cultures 09/13/2018 negative. Has indwelling PICC and Manrique. Now with persistent diarrhea. ?CAUTI, ?CLABSI ? C diff ?sinusitis. Recent CT abd showed new bilateral effusions, anasarca, and decreased bilateral consolidation. 2) Recent Camryn glabrata fungemia: resolved. Etiology remains unclear. Patient without any history of indwelling PICC line, TPN or immunocompromised status. reported severe explosive diarrhea, N/V before admission after taken 4 days of amoxicillin for dental implant on 07/29/2018 and had a EGD / colonoscopy on 08/08/[address] [facility] [address] Alcantara. I reviewed report - mild chronic gastritis, focal intestinal metaplasia, squamocolumnar mucosa with mild reflux-type changes, and tubular adenoma. -s/p fluconazole 800 mg loading dose then micafungin, s/p amphotericin D6 on 08/26 -serum Crypto negative. -08/15/2018 blood culture: Camryn glabrata -08/18/2018 blood culture: no growth -CTA chest showed limited study due to respiratory motion artifact. No evidence of pulmonary embolism. Abnormal bilateral lung consolidation which may represent pulmonary edema or pneumonia. Mild cardiomegaly. Indeterminant mediastinal lymph nodes. -CT abdomen showed extensive bilateral lower lobe pulmonary infiltrates, rectal tube and Manrique catheter noted. NG tube at gastric antrum. Left hip prosthesis Extensive degenerative changes noted lumbar spine -TTE EF 25-30% no vegetations -HIV neg/ CD4 1004 -reviewed CT chest abd done 01/05/2019 showed cholecystectomy, mild fatty liver, postoperative changes of lumbar laminectomy with non specific fluid, 9 mm LLL pulmonary nodule which was compared to previous CT and was stable. -CRP 10-->5 3) Acute renal failure: On admission: improved. 4) Acute respiratory failure: Back on the vent. Recently completed pneumonia treatment. Underwent bronch + BAL on 09/02/2018. Cultures with no growth thus far. On abx. CTA chest 09/06/2018 negative for PE, bilateral air space disease, no air bronchograms as such. 5) Right maxillary sinusitis: received empiric abx. 6) Acute encephalopathy: Likely multifactorial. CT head unremarkable for acute intracranial process. 7) Cardiomyopathy, LVEF 25-30% this admission. 8) H/O left hip prosthesis ? XR no effusion. CT with no enhancement 9) Left leg DVT: on anticoagulation. Hematology following. 10) Mild transaminitis: monitor for now. RUQ US unremarkable. 11) Diahrrea: ? r/o C diff 12) Urinary retention: manrique was exchanged during weekend, patient had retention again so it could not be removed. Recs: send stool for C diff contact isolation until C diff is r/o continue po vancomycin for now until C diff is r/o remove NGT after PEG f/u repeat blood cultures, UA and UC remove PICC line, ok to place midline - pending to have PEG by IR hopefully will remove NGT soon Discussed with nursing staff Will follow Yasmin Alvarez MD Infectious Diseases Sales Planning Coordinator [facility] ([facility]) M [phone] O [phone] Subjective Date of service: 09/20/18 Principal diagnosis: Acute hypoxemic hypercapnic Resp failure; AE-COPD; Acute ki dney injury Interval history: Remains on the vent via trach on CPAP, alert, following commands, temp 100, noted diarrhea ROS: unable to obtain Objective - Exam Narrative Exam: Constitutional: alert follows commands, intubated tee CPAP Head, Ears, Nose: Normocephalic, atraumatic. External ears, nose normal Eyes: Conjunctivae/corneas clear. No icterus. No ptosis. Neck:+trach no secretion Oral: clear OP Cardiovascular: RRR Respiratory: CTA gonzalez GI: Soft, non-tender; bowel sounds normal. No peritoneal signs Musculoskeletal: gonzalez arm edema Skin: No rash or abscess Hem/Lymphatic: No palpable cervical or supraclavicular nodes. No lymphangitis Psych: no agitation Neurological: alert follows commands Rectal tube with diarrhea/ manrique - Constitutional Vitals: Vital Signs Temp Pulse Resp BP Pulse Ox 98.7 F 91 H 26 H 128/73 97 09/20/18 07:46 09/20/18 07:57 09/20/18 07:14 09/20/18 07:57 09/20/18 09:20 Temperature -Last 24 Hours Temperature 98.7 F Temperature 99 F Temperature 98.8 F Temperature 98.5 F Temperature 99.1 F Temperature 100.0 F - Labs CBC & Chem 7: 09/20/18 04:20 09/20/18 04:20 Labs: Abnormal lab results 09/20/18 09/20/18 09/20/18 Range/Units 04:20 04:20 05:15 RBC 2.89 L (3.65-5.03) M/mm3 Hgb 9.1 L (10.1-14.3) gm/dl Hct 27.1 L (30.3-42.9) % RDW 17.1 H (13.2-15.2) % Lymph % (Auto) 12.6 L (13.4-35.0) % Florence % (Auto) 10.7 H (0.0-7.3) % Lymph # 1.1 L (1.2-5.4) K/mm3 Florence # 0.9 H (0.0-0.8) K/mm3 Seg Neutrophils % 76.1 H (40.0-70.0) % POC ABG pCO2 33.6 L (35-45) POC ABG pO2 56 L (80-105) Sodium 136 L (137-145) mmol/L Potassium 2.9 L* (3.6-5.0) mmol/L Glucose 116 H (65-100) mg/dL
[2018-09-20] MEDS: LASIX IV SCH (11:12)
[2018-09-20] MEDS: PEPCID PO SCH ×2 (11:12→22:34)
[2018-09-20] MEDS: COREG PO SCH ×2 (11:13→22:32)
--- NOTE | 2018-09-20 11:14 | Hem/Onc Progress Note ---
Assessment and Plan #. Bilateral posterior tibial and peroneal vein deep venous thrombosis, left leg edema. Arixtra was being used. - back on same #. h/o Thrombocytopenia. The patient was on heparin-based treatment. Later fondaparinux. HIT negative, plt now better #. Anemia. At admission, hemoglobin was normal. The patient received blood transfusion. deficiency workup low iron - Ferritin - b12 - folate normal . There may be a bleeding component. s/p Iv iron trial #. Pulmonary embolism study is negative. #. h/o Camryn infection. #. Chronic obstructive pulmonary disease. #. History of renal failure. Nephrology following. #. Respiratory failure, on ventilator. History of cardiomyopathy. - s/p trach 09/20 - pt on arixtra for leg dvt. candidate for IVC filter eval as pt has been anemic needing transfusion - d/w dr Quesada - ICU peg tube trach+ midline today - Patient Problems (1) Thrombocytopenia Current Visit: Yes Status: Acute (2) DVT (deep venous thrombosis) Current Visit: Yes Status: Acute (3) Anemia Current Visit: Yes Status: Acute Subjective Date of service: 09/20/18 Principal diagnosis: anemia - dvt Objective - Constitutional Vitals: Last Vital Signs Temp 98.7 F 09/20/18 07:46 Pulse 100 H 09/20/18 11:13 Resp 23 09/20/18 07:57 BP 155/59 09/20/18 11:13 Pulse Ox 95 09/20/18 11:10 General appearance: no acute distress Performance status: 4-completely disabled - EENT ENT: hearing intact - Respiratory Respiratory effort: Positive: normal Respiratory: bilateral: diminished - Cardiovascular Heart Sounds: Present: S1 & S2 Extremity abnormal: edema - Gastrointestinal General gastrointestinal: Present: soft Rectal Exam: deferred - Genitourinary Female genitourinary: Present: deferred - Integumentary Integumentary: warm - Musculoskeletal Musculoskeletal: generalized weakness - Neurologic Neurologic: moves all extremities (minimally) - Labs Lab Results: Laboratory Results - last 24 hr 09/19/18 09/19/18 09/20/18 18:50 23:24 04:20 WBC RBC Hgb Hct MCV MCH MCHC RDW Plt Count Lymph % (Auto) [place] % (Auto) Eos % (Auto) Baso % (Auto) Lymph # [place] # Eos # Baso # Seg Neutrophils % Seg Neutrophils # POC ABG pH POC ABG pCO2 POC ABG pO2 POC ABG HCO3 POC ABG Total CO2 POC ABG O2 Sat POC ABG Base Excess FiO2 Sodium 136 L Potassium 2.9 L* Chloride 100.8 Carbon Dioxide 22 Anion Gap 16 BUN 17 Creatinine 0.7 Estimated GFR > 60 BUN/Creatinine Ratio 24 Glucose 116 H POC Glucose 92 100 Calcium 8.5 09/20/18 09/20/18 09/20/18 04:20 05:15 05:37 WBC 8.4 RBC 2.89 L Hgb 9.1 L Hct 27.1 L MCV 94 MCH 31 MCHC 34 RDW 17.1 H Plt Count 254 Lymph % (Auto) 12.6 L [place] % (Auto) 10.7 H Eos % (Auto) 0.0 Baso % (Auto) 0.6 Lymph # 1.1 L [place] # 0.9 H Eos # 0.0 Baso # 0.1 Seg Neutrophils % 76.1 H Seg Neutrophils # 6.4 POC ABG pH 7.437 POC ABG pCO2 33.6 L POC ABG pO2 56 L POC ABG HCO3 22.6 POC ABG Total CO2 24 POC ABG O2 Sat 90 POC ABG Base Excess -2 FiO2 40 Sodium Potassium Chloride Carbon Dioxide Anion Gap BUN Creatinine Estimated GFR BUN/Creatinine Ratio Glucose POC Glucose 104 Calcium Medications & Allergies - Medications Allergies/Adverse Reactions: Allergies No Known Allergies Allergy (Unverified 08/15/18 16:49) Home Medications: Home Medications Medication Instructions Recorded Confirmed Last Taken Type Carvedilol 6.25 mg PO BID 08/15/18 08/15/18 Unknown History DULoxetine 60 mg PO QDAY 08/15/18 08/15/18 Unknown History Gabapentin 600 mg PO Q6HR PRN 08/15/18 08/15/18 Unknown History Methylphenidate 5 mg PO TID 08/15/18 08/15/18 Unknown History Morphabond ER 60 mg PO Q12HR 08/15/18 08/15/18 Unknown History Pravastatin Sodium 10 mg PO QDAY 08/15/18 08/15/18 Unknown History Tizanidine HCl 4 mg PO Q12HR 08/15/18 08/15/18 Unknown History oxyCODONE /ACETAMINOPHEN 7.5 - 325 mg PO Q8HR 08/15/18 08/15/18 Unknown History ALBUTEROL Inhaler(NF) 90 mcg IH TID 08/29/18 08/29/18 Unknown History Omeprazole-Bicarb 40-1,100 Cap 40 mg PO DAILY 08/29/18 08/29/18 Unknown History Active Medications: Generic Name Dose Route Start Last Admin Trade Name Freq PRN Reason Stop Dose Admin Acetaminophen 650 mg 08/15/18 22:12 09/18/18 00:26 Tylenol PO 650 mg Q4H PRN Administration Pain MILD(1-3)/Fever >100.5/MONDRAGON Acetazolamide 250 mg 09/18/18 22:00 09/19/18 21:05 Diamox IV 09/20/18 21:59 250 mg QHS LAMAR Administration Albuterol 2.5 mg 08/17/18 17:00 Proventil IH Q3HRT PRN Shortness Of Breath Albuterol/Ipratropium 1 ampul 08/20/18 14:00 09/20/18 07:14 Duoneb *Not For Prn Use* IH Not Given Q6HRT LAMAR Lipase/Protease/Amylase 1 each 09/17/18 09:06 Pancresam Elizabeth 10,500 Unit FEEDTUBE PRN PRN For Clogged Feeding Tube Arformoterol Tartrate 15 mcg 08/18/18 20:00 09/20/18 07:14 Brovana Nebu IH 15 mcg Q12HRT LAMAR Administration Budesonide 0.5 mg 08/18/18 20:00 09/20/18 07:14 Pulmicort IH 0.5 mg Q12HRT LAMAR Administration Carvedilol 3.125 mg 09/20/18 10:00 09/20/18 11:13 Coreg PO 3.125 mg BID LAMAR Administration Clonidine HCl 0.2 mg 09/25/18 10:00 Catapres-Tts Patch TD Pearson LAMAR Famotidine 20 mg 09/05/18 10:00 09/20/18 11:12 Pepcid PO 20 mg BID LAMAR Administration Fondaparinux 7.5 mg 09/07/18 10:00 09/19/18 10:15 Arixtra SUB-Q 7.5 mg DAILY LAMAR Administration Furosemide 20 mg 09/18/18 12:00 09/20/18 11:12 Lasix IV 20 mg QDAY LAMAR Administration Hydralazine HCl 10 mg 08/19/18 13:59 09/19/18 02:27 Apresoline IV 10 mg Q3H PRN Administration Hydralazine HCl 25 mg 09/01/18 14:00 09/20/18 05:36 Apresoline PO 25 mg Q8HR LAMAR Administration Hydromorphone HCl 2 mg 09/06/18 12:00 09/20/18 05:35 Dilaudid PO 2 mg Q6HR [facility] Administration Hydrophilic Ointment 1 applic 08/15/18 21:55 09/01/18 09:07 Vaseline Lip Therapy TP 1 applic Q2HR PRN Administration Dry Lips Fentanyl Citrate 2,000 mcg in 100 mls @ 4.765 mls/hr 09/02/18 11:00 09/16/18 07:40 Fentanyl Drip Premix IV Infused TITR [facility] Titration Protocol 1 MCG/KG/HR Potassium Chloride 10 meq in 100 mls @ 100 mls/hr 09/20/18 11:00 Kcl 10meq/100ml IV 09/20/18 13:59 Q1H [facility] Insulin Human Lispro 0 unit 09/04/18 18:00 09/20/18 10:19 Humalog SUB-Q Not Given Q6HR [facility] Protocol Metoclopramide HCl 5 mg 08/15/18 22:50 09/17/18 10:48 Reglan IV 5 mg Q6H PRN Administration Nausea And Vomiting Midazolam HCl 1 mg 09/07/18 09:23 09/19/18 03:01 Versed IV 1 mg Q4H PRN Administration AGITATION Ondansetron HCl 4 mg 08/15/18 22:12 08/31/18 17:52 Zofran IV 4 mg Q8H PRN Administration Nausea And Vomiting Potassium Chloride 40 meq 09/20/18 22:00 Potassium Chloride PO QDAY@2200 [facility] Potassium Chloride 40 meq 09/20/18 10:50 K-Dur PO 09/20/18 10:51 ONCE ONE Quetiapine Fumarate 100 mg 09/19/18 22:00 09/20/18 11:13 Seroquel PO 100 mg BID LAMAR Administration Quetiapine Fumarate 100 mg 09/19/18 22:00 09/19/18 21:08 Seroquel PO 100 mg QHS LAMAR Administration Simple Syrup 15 ml 09/17/18 09:06 Simple Syrup FEEDTUBE PRN PRN Hypoglycemia Simple Syrup 30 ml 09/17/18 09:06 Simple Syrup FEEDTUBE PRN PRN Hypoglycemia Sodium Bicarbonate 325 mg 09/17/18 09:06 Sodium Bicarbonate FEEDTUBE PRN PRN For Clogged Feeding Tube Sodium Chloride 10 ml 08/15/18 22:12 09/17/18 21:51 Sodium Chloride Flush Syringe 10 Ml IV 10 ml PRN PRN Administration LINE FLUSH Vancomycin HCl 125 mg 09/20/18 12:00 Vancomycin Po PO Q6HR [facility]
[2018-09-20] MEDS: ARIXTRA SUB-Q SCH (11:38)
[2018-09-20] MEDS ORDERED: K-DUR PO NR (12:00)
--- NOTE | 2018-09-20 12:32 | Progress Note ---
Assessment and Plan Acute hypoxic-hypercapnic respiratory failure on MVS Acute COPD exacerbation DVT NSTEMI Acute encephalopathy (toxic-metabolic) Thrombocytopenia Hypokalemia Acute kidney injury h/o Chronic Narcotic Dependence Aspiration pneumonia/CAP Hypokalemia GNR in tracheal aspirate Hypernatremia - PEG placement once anesthesia available - s/p Midline placement - reduce set rate on MVS to 12/min - continue lasix at 20 mg IV daily - also to complete diamox 250 mg IV daily today - continue daily SAT's & SBT's - continue prn analgesia - Continue to Wean supplemental oxygen to keep O2 sats > 90% - follow clinically s/p AB's courses - continue accuchecks q6h and target glycemic control for BG 140 - 180 mg/dl acutely - continue seroquel but begin slow taper re: lethargy (more alert today) - CD4 count WNL - HIT assay negative but again developed thrombocytopenia with re-challenge so on Arixtra treatment dose for DVT - nephrology input appreciated - cardiology input appreciated - continue brovana & pulmicort re: COPD - continue lung protective strategies - Daily ABGs/CXR for now - VAP bundle addressed - continue to avoid benzodiazepines, use high dose fentanyl for agitation and analgesia - continue stress ulcer prophylaxis - continue VTE prophylaxis - continue enteral Nutrition as tolerated - VAP bundle addressed - Continue bronchodilators with pulmonary hygiene per RT - Maintenance of sleep -wake cycle - Mobility protocol for pressure ulcer prophylaxis as tolerated by hemodynamics - Influenza and pneumonia vaccination per protocol .... her not in room today at time of my examination ... re-evaluate in am & prn PROGNOSIS :FAIR CONDITION: CRITICAL CODE STATUS: FULL CODE The high probability of a clinically significant, sudden or life-threatening deterioration of the [respiratory, neurology, renal] system(s) required my full and direct attention, intervention and personal management. The aggregate critical care time was [34] minutes without overlap. Time includes spent on; [x] Data Review and interpretation [x] Patient assessment and monitoring of vital signs [x] Documentation [x] Medication orders and management Subjective Date of service: 09/20/18 Principal diagnosis: Acute hypoxemic hypercapnic Resp failure; AE-COPD; Acute kidney injury Interval history: Patient is seen today for: Acute hypoxemic - hypercapnic respiratory failure on MVS; Acute COPD exacerbation; Acute encephalopathy (toxic-metabolic); Hyp okalemia; Acute kidney injury Seen and examined at bedside; 24hour events reviewed; nursing and respiratory care staff consulted; no adverse overnight events reported to me; remains on MVS; tolerating PSV; PEG rescheduled due to anesthesia issues; no N/V/F/C Objective Vital Signs - 12hr 09/20/18 09/20/18 09/20/18 00:45 01:00 01:15 Temperature Pulse Rate 73 76 76 Pulse Rate [ Anterior Bilateral Throughout] Pulse Rate [ Anterior Bilateral] Pulse Rate [ From Monitor] Respiratory 20 21 19 Rate Respiratory Rate [Anterior Bilateral Throughout] Respiratory Rate [Anterior Bilateral] Blood Pressure 137/59 147/65 147/65 O2 Sat by Pulse 96 96 97 Oximetry O2 Sat by Pulse Oximetry [ Assessment] 09/20/18 09/20/18 09/20/18 01:31 01:45 02:00 Temperature Pulse Rate 74 80 79 Pulse Rate [ Anterior Bilateral Throughout] Pulse Rate [ Anterior Bilateral] Pulse Rate [ From Monitor] Respiratory 24 26 H 22 Rate Respiratory Rate [Anterior Bilateral Throughout] Respiratory Rate [Anterior Bilateral] Blood Pressure 134/59 134/59 134/61 O2 Sat by Pulse 96 98 95 Oximetry O2 Sat by Pulse Oximetry [ Assessment] 09/20/18 09/20/18 09/20/18 02:15 02:30 02:41 Temperature Pulse Rate 81 81 Pulse Rate [ Anterior Bilateral Throughout] Pulse Rate [ 75 Anterior Bilateral] Pulse Rate [ From Monitor] Respiratory 22 23 Rate Respiratory Rate [Anterior Bilateral Throughout] Respiratory 26 H Rate [Anterior Bilateral] Blood Pressure 134/61 144/61 O2 Sat by Pulse 97 95 Oximetry O2 Sat by Pulse Oximetry [ Assessment] 09/20/18 09/20/18 09/20/18 02:57 03:00 03:30 Temperature Pulse Rate 82 82 Pulse Rate [ Anterior Bilateral Throughout] Pulse Rate [ 77 Anterior Bilateral] Pulse Rate [ From Monitor] Respiratory 30 H 32 H Rate Respiratory Rate [Anterior Bilateral Throughout] Respiratory 26 H Rate [Anterior Bilateral] Blood Pressure 144/61 143/60 O2 Sat by Pulse 97 97 Oximetry O2 Sat by Pulse 98 Oximetry [ Assessment] 09/20/18 09/20/18 09/20/18 04:00 04:30 05:00 Temperature 99 F Pulse Rate 94 H 79 80 Pulse Rate [ Anterior Bilateral Throughout] Pulse Rate [ Anterior Bilateral] Pulse Rate [ 73 From Monitor] Respiratory 22 25 H 25 H Rate Respiratory Rate [Anterior Bilateral Throughout] Respiratory Rate [Anterior Bilateral] Blood Pressure 129/69 133/82 139/96 O2 Sat by Pulse 99 95 98 Oximetry O2 Sat by Pulse Oximetry [ Assessment] 09/20/18 09/20/18 09/20/18 05:09 05:30 05:36 Temperature Pulse Rate 80 80 83 Pulse Rate [ Anterior Bilateral Throughout] Pulse Rate [ Anterior Bilateral] Pulse Rate [ From Monitor] Respiratory 29 H Rate Respiratory Rate [Anterior Bilateral Throughout] Respiratory Rate [Anterior Bilateral] Blood Pressure 139/96 144/63 144/63 O2 Sat by Pulse 98 96 Oximetry O2 Sat by Pulse Oximetry [ Assessment] 09/20/18 09/20/18 09/20/18 06:00 06:30 07:00 Temperature Pulse Rate 90 86 91 H Pulse Rate [ Anterior Bilateral Throughout] Pulse Rate [ Anterior Bilateral] Pulse Rate [ From Monitor] Respiratory 41 H 24 25 H Rate Respiratory Rate [Anterior Bilateral Throughout] Respiratory Rate [Anterior Bilateral] Blood Pressure 144/63 136/70 128/73 O2 Sat by Pulse 96 95 95 Oximetry O2 Sat by Pulse Oximetry [ Assessment] 09/20/18 09/20/18 09/20/18 07:14 07:46 07:57 Temperature 98.7 F Pulse Rate 91 H Pulse Rate [ 89 Anterior Bilateral Throughout] Pulse Rate [ 88 Anterior Bilateral] Pulse Rate [ From Monitor] Respiratory 23 Rate Respiratory 26 H Rate [Anterior Bilateral Throughout] Respiratory 27 H Rate [Anterior Bilateral] Blood Pressure 128/73 O2 Sat by Pulse 95 Oximetry O2 Sat by Pulse Oximetry [ Assessment] 09/20/18 09/20/18 09/20/18 09:20 11:10 11:13 Temperature Pulse Rate 91 H 100 H Pulse Rate [ Anterior Bilateral Throughout] Pulse Rate [ Anterior Bilateral] Pulse Rate [ From Monitor] Respiratory Rate Respiratory Rate [Anterior Bilateral Throughout] Respiratory Rate [Anterior Bilateral] Blood Pressure 128/73 155/59 O2 Sat by Pulse 95 Oximetry O2 Sat by Pulse 97 Oximetry [ Assessment] 09/20/18 09/20/18 11:37 11:56 Temperature 99.5 F Pulse Rate Pulse Rate [ Anterior Bilateral Throughout] Pulse Rate [ Anterior Bilateral] Pulse Rate [ From Monitor] Respiratory 34 H Rate Respiratory Rate [Anterior Bilateral Throughout] Respiratory Rate [Anterior Bilateral] Blood Pressure O2 Sat by Pulse Oximetry O2 Sat by Pulse Oximetry [ Assessment] Constitutional: appears uncomfortable, other (elderly looking CF, normocephalic and atraumatic) Eyes: non-icteric ENT: oropharynx moist, other (s/p tracheostomy) Neck: supple, no lymphadenopathy, no JVD, other (no thyromegaly) Effort: mildly labored Ascultation: Bilateral: diminished breath sounds, rhonchi (improved) Percussion: Bilateral: not dull Cardiovascular: regular rate and rhythm Gastrointestinal: normoactive bowel sounds, soft, non-tender, non-distended Integumentary: normal Extremities: no cyanosis, no ischemia or petechiae, edema (Left lower extremity) Neurologic: non-focal exam (grossly), pupils equal and round, CN II-XII normal, motor strength normal and, other (lethargic) Psychiatric: other (unable to assess) CBC and BMP: 09/20/18 04:20 09/20/18 04:20 ABG, PT/INR, D-dimer: ABG POC ABG pH 7.437 (7.35-7.45) 09/20/18 05:15 POC ABG pCO2 33.6 (35-45) L 09/20/18 05:15 POC ABG pO2 56 (80-105) L 09/20/18 05:15 POC ABG HCO3 22.6 (22-26 mml/L) 09/20/18 05:15 POC ABG Total CO2 24 (23-27mmol/L) 09/20/18 05:15 POC ABG O2 Sat 90 09/20/18 05:15 PT/INR, D-dimer PT 14.2 Sec. (12.2-14.9) 09/14/18 04:55 INR 1.04 (0.87-1.13) 09/14/18 04:55 D-Dimer 2768.33 ng/mlDDU (0-234) H 08/15/18 18:31 Abnormal lab findings: Abnormal Labs 08/15/18 08/15/18 08/15/18 17:52 17:52 17:52 WBC 12.7 H RBC 3.25 L Hgb Hct RDW Plt Count Lymph % (Auto) [place] % (Auto) Lymph # [place] # Seg Neutrophils % Seg Neuts % (Manual) Lymphocytes % (Manual) 6.0 L Nucleated RBC % Seg Neutrophils # Seg Neutrophils # Man Lymphocytes # (Manual) 0.8 L D-Dimer POC ABG pH POC ABG pCO2 POC ABG pO2 VBG pH Sodium Potassium 3.4 L Chloride 94.6 L Carbon Dioxide 17 L BUN 67 H Creatinine 3.5 H Glucose 131 H POC Glucose Hemoglobin A1c Lactic Acid 5.20 H* Calcium 7.6 L Phosphorus Magnesium Iron TIBC AST 887 H ALT 316 H Troponin T C-Reactive Protein Total Protein Albumin 3.1 L Triglycerides LDL Cholesterol Direct HDL Cholesterol Urine WBC (Auto) Vancomycin Trough Salicylates Acetaminophen % CD3 Cells % CD19 Cells Absolute CD19 Count Miscellaneous Test Crossmatch 08/15/18 08/15/18 08/15/18 18:11 18:19 18:31 WBC RBC Hgb Hct RDW Plt Count Lymph % (Auto) [place] % (Auto) Lymph # [place] # Seg Neutrophils % Seg Neuts % (Manual) Lymphocytes % (Manual) Nucleated RBC % Seg Neutrophils # Seg Neutrophils # Man Lymphocytes # (Manual) D-Dimer 2768.33 H POC ABG pH 7.173 L POC ABG pCO2 47.8 H POC ABG pO2 177 H VBG pH 7.187 L* Sodium Potassium Chloride Carbon Dioxide BUN Creatinine Glucose POC Glucose Hemoglobin A1c Lactic Acid Calcium Phosphorus Magnesium Iron TIBC AST ALT Troponin T C-Reactive Protein Total Protein Albumin Triglycerides LDL Cholesterol Direct HDL Cholesterol Urine WBC (Auto) Vancomycin Trough Salicylates Acetaminophen % CD3 Cells % CD19 Cells Absolute CD19 Count Miscellaneous Test Crossmatch 08/15/18 08/15/18 08/15/18 18:31 19:14 19:14 WBC RBC Hgb Hct RDW Plt Count Lymph % (Auto) [place] % (Auto) Lymph # [place] # Seg Neutrophils % Seg Neuts % (Manual) Lymphocytes % (Manual) Nucleated RBC % Seg Neutrophils # Seg Neutrophils # Man Lymphocytes # (Manual) D-Dimer POC ABG pH POC ABG pCO2 POC ABG pO2 VBG pH Sodium Potassium Chloride Carbon Dioxide BUN Creatinine Glucose POC Glucose Hemoglobin A1c Lactic Acid 2.70 H* Calcium Phosphorus Magnesium Iron TIBC AST ALT Troponin T 0.454 H* C-Reactive Protein Total Protein Albumin Triglycerides 356 H LDL Cholesterol Direct 4 L HDL Cholesterol 10 L Urine WBC (Auto) Vancomycin Trough Salicylates < 0.3 L Acetaminophen % CD3 Cells % CD19 Cells Absolute CD19 Count Miscellaneous Test Crossmatch 08/15/18 08/15/18 08/15/18 19:14 19:15 23:09 WBC RBC Hgb Hct RDW Plt Count Lymph % (Auto) [place] % (Auto) Lymph # [place] # Seg Neutrophils % Seg Neuts % (Manual) Lymphocytes % (Manual) Nucleated RBC % Seg Neutrophils # Seg Neutrophils # Man Lymphocytes # (Manual) D-Dimer POC ABG pH POC ABG pCO2 POC ABG pO2 VBG pH Sodium Potassium Chloride Carbon Dioxide BUN Creatinine Glucose POC Glucose Hemoglobin A1c Lactic Acid 3.20 H* Calcium Phosphorus Magnesium Iron TIBC AST ALT Troponin T C-Reactive Protein Total Protein Albumin Triglycerides LDL Cholesterol Direct HDL Cholesterol Urine WBC (Auto) 17.0 H Vancomycin Trough Salicylates Acetaminophen < 5.0 L % CD3 Cells % CD19 Cells Absolute CD19 Count Miscellaneous Test Crossmatch 08/15/18 08/16/18 08/16/18 23:09 01:41 05:38 WBC RBC 3.07 L Hgb 9.8 L Hct 28.7 L RDW Plt Count Lymph % (Auto) [place] % (Auto) Lymph # [place] # Seg Neutrophils % Seg Neuts % (Manual) 84.0 H Lymphocytes % (Manual) 6.0 L Nucleated RBC % 4.0 H Seg Neutrophils # Seg Neutrophils # Man Lymphocytes # (Manual) 0.5 L D-Dimer POC ABG pH 7.323 L POC ABG pCO2 34.7 L POC ABG pO2 78 L VBG pH Sodium Potassium Chloride Carbon Dioxide BUN Creatinine Glucose POC Glucose Hemoglobin A1c 6.4 H Lactic Acid Calcium Phosphorus Magnesium Iron TIBC AST ALT Troponin T C-Reactive Protein Total Protein Albumin Triglycerides LDL Cholesterol Direct HDL Cholesterol Urine WBC (Auto) Vancomycin Trough Salicylates Acetaminophen % CD3 Cells % CD19 Cells Absolute CD19 Count Miscellaneous Test Crossmatch 08/16/18 08/16/18 08/17/18 05:38 22:43 03:42 WBC RBC Hgb Hct RDW Plt Count Lymph % (Auto) [place] % (Auto) Lymph # [place] # Seg Neutrophils % Seg Neuts % (Manual) Lymphocytes % (Manual) Nucleated RBC % Seg Neutrophils # Seg Neutrophils # Man Lymphocytes # (Manual) D-Dimer POC ABG pH POC ABG pCO2 POC ABG pO2 VBG pH Sodium Potassium 2.9 L* 3.1 L 2.9 L* Chloride 108.8 H 111.9 H Carbon Dioxide 17 L 19 L 21 L BUN 62 H 40 H 33 H Creatinine 2.0 H Glucose 139 H 145 H POC Glucose Hemoglobin A1c Lactic Acid Calcium 7.8 L 8.3 L Phosphorus 1.50 L Magnesium Iron TIBC AST 619 H ALT 353 H Troponin T C-Reactive Protein Total Protein 6.1 L Albumin 2.8 L Triglycerides LDL Cholesterol Direct HDL Cholesterol Urine WBC (Auto) Vancomycin Trough Salicylates Acetaminophen % CD3 Cells % CD19 Cells Absolute CD19 Count Miscellaneous Test Crossmatch 08/17/18 08/17/18 08/18/18 11:02 16:42 03:28 WBC RBC Hgb Hct RDW Plt Count Lymph % (Auto) [place] % (Auto) Lymph # [place] # Seg Neutrophils % Seg Neuts % (Manual) Lymphocytes % (Manual) Nucleated RBC % Seg Neutrophils # Seg Neutrophils # Man Lymphocytes # (Manual) D-Dimer POC ABG pH 7.483 H 7.499 H POC ABG pCO2 POC ABG pO2 VBG pH Sodium 147 H Potassium 3.2 L Chloride 115.8 H Carbon Dioxide BUN 23 H Creatinine Glucose 121 H POC Glucose Hemoglobin A1c Lactic Acid Calcium 8.1 L Phosphorus 2.30 L D Magnesium Iron TIBC AST ALT Troponin T C-Reactive Protein Total Protein Albumin Triglycerides LDL Cholesterol Direct HDL Cholesterol Urine WBC (Auto) Vancomycin Trough Salicylates Acetaminophen % CD3 Cells % CD19 Cells Absolute CD19 Count Miscellaneous Test Crossmatch 08/18/18 08/18/18 08/18/18 04:10 13:39 13:39 WBC RBC Hgb Hct RDW Plt Count Lymph % (Auto) [place] % (Auto) Lymph # [place] # Seg Neutrophils % Seg Neuts % (Manual) Lymphocytes % (Manual) Nucleated RBC % Seg Neutrophils # Seg Neutrophils # Man Lymphocytes # (Manual) D-Dimer POC ABG pH POC ABG pCO2 POC ABG pO2 VBG pH Sodium 147 H Potassium 3.3 L Chloride 111.9 H Carbon Dioxide BUN 21 H Creatinine Glucose 113 H POC Glucose Hemoglobin A1c Lactic Acid Calcium Phosphorus 1.50 L D Magnesium Iron TIBC AST ALT Troponin T 0.317 H* D C-Reactive Protein 10.70 H Total Protein Albumin Triglycerides LDL Cholesterol Direct HDL Cholesterol Urine WBC (Auto) Vancomycin Trough Salicylates Acetaminophen % CD3 Cells % CD19 Cells Absolute CD19 Count Miscellaneous Test Crossmatch 08/18/18 08/19/18 08/19/18 16:51 03:47 04:15 WBC RBC Hgb Hct RDW Plt Count Lymph % (Auto) [place] % (Auto) Lymph # [place] # Seg Neutrophils % Seg Neuts % (Manual) Lymphocytes % (Manual) Nucleated RBC % Seg Neutrophils # Seg Neutrophils # Man Lymphocytes # (Manual) D-Dimer POC ABG pH 7.454 H 7.482 H POC ABG pCO2 POC ABG pO2 65 L VBG pH Sodium 154 H Potassium 3.3 L Chloride 115.1 H Carbon Dioxide BUN 19 H Creatinine Glucose 117 H POC Glucose Hemoglobin A1c Lactic Acid Calcium 7.8 L Phosphorus Magnesium Iron TIBC AST ALT Troponin T C-Reactive Protein Total Protein Albumin Triglycerides LDL Cholesterol Direct HDL Cholesterol Urine WBC (Auto) Vancomycin Trough Salicylates Acetaminophen % CD3 Cells % CD19 Cells Absolute CD19 Count Miscellaneous Test Crossmatch 08/19/18 08/19/18 08/20/18 14:32 16:18 03:51 WBC RBC Hgb Hct RDW Plt Count Lymph % (Auto) [place] % (Auto) Lymph # [place] # Seg Neutrophils % Seg Neuts % (Manual) Lymphocytes % (Manual) Nucleated RBC % Seg Neutrophils # Seg Neutrophils # Man Lymphocytes # (Manual) D-Dimer POC ABG pH 7.483 H POC ABG pCO2 33.4 L POC ABG pO2 51 L 74 L VBG pH Sodium Potassium Chloride Carbon Dioxide BUN Creatinine Glucose POC Glucose Hemoglobin A1c Lactic Acid Calcium Phosphorus Magnesium Iron TIBC AST ALT Troponin T C-Reactive Protein Total Protein Albumin Triglycerides LDL Cholesterol Direct HDL Cholesterol Urine WBC (Auto) Vancomycin Trough Salicylates Acetaminophen % CD3 Cells 44 L % CD19 Cells 41 H Absolute CD19 Count 1290 H Miscellaneous Test Crossmatch 08/20/18 08/21/18 08/21/18 05:25 03:54 05:45 WBC 24.1 H RBC 2.83 L Hgb 8.8 L Hct 26.7 L RDW 15.7 H Plt Count 127 L Lymph % (Auto) [place] % (Auto) Lymph # [place] # Seg Neutrophils % Seg Neuts % (Manual) 94.0 H Lymphocytes % (Manual) 4.0 L Nucleated RBC % 1.0 H Seg Neutrophils # Seg Neutrophils # Man 22.7 H Lymphocytes # (Manual) 1.0 L D-Dimer POC ABG pH POC ABG pCO2 31.9 L POC ABG pO2 66 L VBG pH Sodium 146 H D Potassium Chloride 111.2 H Carbon Dioxide BUN 24 H Creatinine Glucose 141 H POC Glucose Hemoglobin A1c Lactic Acid Calcium 8.1 L Phosphorus Magnesium Iron TIBC AST 65 H ALT 104 H Troponin T C-Reactive Protein Total Protein 6.2 L Albumin 2.6 L Triglycerides LDL Cholesterol Direct HDL Cholesterol Urine WBC (Auto) Vancomycin Trough Salicylates Acetaminophen % CD3 Cells % CD19 Cells Absolute CD19 Count Miscellaneous Test Crossmatch 08/21/18 08/22/18 08/22/18 05:45 06:20 06:45 WBC RBC Hgb Hct RDW Plt Count Lymph % (Auto) [place] % (Auto) Lymph # [place] # Seg Neutrophils % Seg Neuts % (Manual) Lymphocytes % (Manual) Nucleated RBC % Seg Neutrophils # Seg Neutrophils # Man Lymphocytes # (Manual) D-Dimer POC ABG pH POC ABG pCO2 32.9 L POC ABG pO2 VBG pH Sodium Potassium 3.5 L Chloride 109.4 H 112.4 H Carbon Dioxide 21 L 20 L BUN 50 H 61 H Creatinine 2.0 H D 1.9 H Glucose 144 H 154 H POC Glucose Hemoglobin A1c Lactic Acid Calcium 7.6 L 7.8 L Phosphorus Magnesium Iron TIBC AST ALT Troponin T C-Reactive Protein Total Protein 5.3 L Albumin 2.1 L Triglycerides LDL Cholesterol Direct HDL Cholesterol Urine WBC (Auto) Vancomycin Trough Salicylates Acetaminophen % CD3 Cells % CD19 Cells Absolute CD19 Count Miscellaneous Test Crossmatch 08/22/18 08/22/18 08/22/18 06:45 15:29 18:40 WBC RBC Hgb Hct RDW Plt Count Lymph % (Auto) [place] % (Auto) Lymph # [place] # Seg Neutrophils % Seg Neuts % (Manual) Lymphocytes % (Manual) Nucleated RBC % Seg Neutrophils # Seg Neutrophils # Man Lymphocytes # (Manual) D-Dimer POC ABG pH POC ABG pCO2 POC ABG pO2 VBG pH Sodium Potassium Chloride Carbon Dioxide BUN Creatinine Glucose POC Glucose 169 H Hemoglobin A1c Lactic Acid Calcium Phosphorus Magnesium Iron TIBC AST ALT Troponin T C-Reactive Protein 4.70 H Total Protein Albumin Triglycerides 197 H LDL Cholesterol Direct HDL Cholesterol Urine WBC (Auto) Vancomycin Trough Salicylates Acetaminophen % CD3 Cells % CD19 Cells Absolute CD19 Count Miscellaneous Test Crossmatch 08/23/18 08/23/18 08/23/18 03:59 21:19 Unknown WBC 12.1 H RBC 2.29 L Hgb 7.1 L Hct 21.7 L RDW 15.7 H Plt Count 106 L Lymph % (Auto) [place] % (Auto) Lymph # [place] # Seg Neutrophils % Seg Neuts % (Manual) 92.0 H Lymphocytes % (Manual) 4.0 L Nucleated RBC % Seg Neutrophils # Seg Neutrophils # Man 11.1 H Lymphocytes # (Manual) 0.5 L D-Dimer POC ABG pH 7.306 L POC ABG pCO2 31.3 L POC ABG pO2 119 H 75 L VBG pH Sodium Potassium Chloride Carbon Dioxide BUN Creatinine Glucose POC Glucose Hemoglobin A1c Lactic Acid Calcium Phosphorus Magnesium Iron TIBC AST ALT Troponin T C-Reactive Protein Total Protein Albumin Triglycerides LDL Cholesterol Direct HDL Cholesterol Urine WBC (Auto) Vancomycin Trough Salicylates Acetaminophen % CD3 Cells % CD19 Cells Absolute CD19 Count Miscellaneous Test Crossmatch 08/23/18 08/24/18 08/24/18 Unknown 04:18 08:30 WBC 12.8 H RBC 2.24 L Hgb 7.0 L Hct 21.1 L RDW Plt Count Lymph % (Auto) [place] % (Auto) Lymph # [place] # Seg Neutrophils % Seg Neuts % (Manual) 93.0 H Lymphocytes % (Manual) 6.0 L Nucleated RBC % Seg Neutrophils # Seg Neutrophils # Man 11.9 H Lymphocytes # (Manual) 0.8 L D-Dimer POC ABG pH POC ABG pCO2 POC ABG pO2 78 L VBG pH Sodium Potassium Chloride 115.7 H Carbon Dioxide 21 L BUN 64 H Creatinine 2.0 H Glucose 149 H POC Glucose Hemoglobin A1c Lactic Acid Calcium 7.5 L Phosphorus Magnesium Iron TIBC AST ALT Troponin T C-Reactive Protein Total Protein 4.8 L Albumin 2.0 L Triglycerides LDL Cholesterol Direct HDL Cholesterol Urine WBC (Auto) Vancomycin Trough Salicylates Acetaminophen % CD3 Cells % CD19 Cells Absolute CD19 Count Miscellaneous Test Crossmatch 08/24/18 08/24/18 08/24/18 08:30 17:44 18:28 WBC RBC Hgb Hct RDW Plt Count Lymph % (Auto) [place] % (Auto) Lymph # [place] # Seg Neutrophils % Seg Neuts % (Manual) Lymphocytes % (Manual) Nucleated RBC % Seg Neutrophils # Seg Neutrophils # Man Lymphocytes # (Manual) D-Dimer POC ABG pH 7.474 H POC ABG pCO2 POC ABG pO2 61 L VBG pH Sodium Potassium Chloride 108.3 H Carbon Dioxide 20 L BUN 65 H Creatinine 2.0 H Glucose 167 H POC Glucose 164 H Hemoglobin A1c Lactic Acid Calcium 7.7 L Phosphorus Magnesium Iron TIBC AST ALT Troponin T C-Reactive Protein Total Protein 5.3 L Albumin 2.2 L Triglycerides LDL Cholesterol Direct HDL Cholesterol Urine WBC (Auto) Vancomycin Trough Salicylates Acetaminophen % CD3 Cells % CD19 Cells Absolute CD19 Count Miscellaneous Test Crossmatch 08/25/18 08/25/18 08/25/18 03:35 05:20 05:20 WBC RBC Hgb 6.7 L Hct 21.0 L RDW Plt Count Lymph % (Auto) [place] % (Auto) Lymph # [place] # Seg Neutrophils % Seg Neuts % (Manual) Lymphocytes % (Manual) Nucleated RBC % Seg Neutrophils # Seg Neutrophils # Man Lymphocytes # (Manual) D-Dimer POC ABG pH POC ABG pCO2 POC ABG pO2 79 L VBG pH Sodium Potassium Chloride Carbon Dioxide 21 L BUN 71 H Creatinine 3.1 H D Glucose 171 H POC Glucose Hemoglobin A1c Lactic Acid Calcium 7.5 L Phosphorus Magnesium Iron TIBC AST ALT Troponin T C-Reactive Protein Total Protein Albumin Triglycerides LDL Cholesterol Direct HDL Cholesterol Urine WBC (Auto) Vancomycin Trough Salicylates Acetaminophen % CD3 Cells % CD19 Cells Absolute CD19 Count Miscellaneous Test Crossmatch 08/25/18 08/25/18 08/25/18 05:20 08:52 12:42 WBC RBC Hgb Hct RDW Plt Count Lymph % (Auto) [place] % (Auto) Lymph # [place] # Seg Neutrophils % Seg Neuts % (Manual) Lymphocytes % (Manual) Nucleated RBC % Seg Neutrophils # Seg Neutrophils # Man Lymphocytes # (Manual) D-Dimer POC ABG pH POC ABG pCO2 POC ABG pO2 VBG pH Sodium Potassium Chloride Carbon Dioxide BUN Creatinine Glucose POC Glucose 166 H Hemoglobin A1c Lactic Acid Calcium Phosphorus Magnesium Iron TIBC AST ALT Troponin T C-Reactive Protein 5.00 H Total Protein Albumin Triglycerides LDL Cholesterol Direct HDL Cholesterol Urine WBC (Auto) Vancomycin Trough Salicylates Acetaminophen % CD3 Cells % CD19 Cells Absolute CD19 Count Miscellaneous Test Crossmatch See Detail 08/25/18 08/26/18 08/26/18 18:05 00:13 04:53 WBC RBC Hgb Hct RDW Plt Count Lymph % (Auto) [place] % (Auto) Lymph # [place] # Seg Neutrophils % Seg Neuts % (Manual) Lymphocytes % (Manual) Nucleated RBC % Seg Neutrophils # Seg Neutrophils # Man Lymphocytes # (Manual) D-Dimer POC ABG pH POC ABG pCO2 30.9 L POC ABG pO2 70 L VBG pH Sodium Potassium Chloride Carbon Dioxide BUN Creatinine Glucose POC Glucose 121 H 164 H Hemoglobin A1c Lactic Acid Calcium Phosphorus Magnesium Iron TIBC AST ALT Troponin T C-Reactive Protein Total Protein Albumin Triglycerides LDL Cholesterol Direct HDL Cholesterol Urine WBC (Auto) Vancomycin Trough Salicylates Acetaminophen % CD3 Cells % CD19 Cells Absolute CD19 Count Miscellaneous Test Crossmatch 08/26/18 08/26/18 08/26/18 05:42 06:00 06:00 WBC RBC 2.62 L Hgb 7.7 L Hct 23.0 L RDW 22.0 H Plt Count Lymph % (Auto) 6.3 L [place] % (Auto) Lymph # 0.7 L [place] # Seg Neutrophils % 88.1 H Seg Neuts % (Manual) Lymphocytes % (Manual) Nucleated RBC % Seg Neutrophils # 9.6 H Seg Neutrophils # Man Lymphocytes # (Manual) D-Dimer POC ABG pH POC ABG pCO2 POC ABG pO2 VBG pH Sodium Potassium Chloride Carbon Dioxide 21 L BUN 70 H Creatinine 3.3 H Glucose 146 H POC Glucose 149 H Hemoglobin A1c Lactic Acid Calcium 8.0 L Phosphorus Magnesium Iron TIBC AST ALT Troponin T C-Reactive Protein Total Protein Albumin Triglycerides LDL Cholesterol Direct HDL Cholesterol Urine WBC (Auto) Vancomycin Trough Salicylates Acetaminophen % CD3 Cells % CD19 Cells Absolute CD19 Count Miscellaneous Test Crossmatch 08/26/18 08/26/18 08/27/18 11:37 23:54 04:35 WBC RBC 2.50 L Hgb 7.6 L Hct 22.3 L RDW 21.8 H Plt Count Lymph % (Auto) 7.3 L [place] % (Auto) Lymph # 0.7 L [place] # Seg Neutrophils % 85.6 H Seg Neuts % (Manual) Lymphocytes % (Manual) Nucleated RBC % Seg Neutrophils # 8.6 H Seg Neutrophils # Man Lymphocytes # (Manual) D-Dimer POC ABG pH POC ABG pCO2 POC ABG pO2 VBG pH Sodium Potassium Chloride Carbon Dioxide BUN Creatinine Glucose POC Glucose 183 H 150 H Hemoglobin A1c Lactic Acid Calcium Phosphorus Magnesium Iron TIBC AST ALT Troponin T C-Reactive Protein Total Protein Albumin Triglycerides LDL Cholesterol Direct HDL Cholesterol Urine WBC (Auto) Vancomycin Trough Salicylates Acetaminophen % CD3 Cells % CD19 Cells Absolute CD19 Count Miscellaneous Test Crossmatch 08/27/18 08/27/18 08/28/18 04:35 12:17 04:43 WBC RBC Hgb Hct RDW Plt Count Lymph % (Auto) [place] % (Auto) Lymph # [place] # Seg Neutrophils % Seg Neuts % (Manual) Lymphocytes % (Manual) Nucleated RBC % Seg Neutrophils # Seg Neutrophils # Man Lymphocytes # (Manual) D-Dimer POC ABG pH POC ABG pCO2 32.1 L 33.8 L POC ABG pO2 68 L 78 L VBG pH Sodium Potassium Chloride Carbon Dioxide 19 L BUN 67 H Creatinine 2.9 H Glucose 155 H POC Glucose Hemoglobin A1c Lactic Acid Calcium Phosphorus 4.70 H Magnesium Iron TIBC AST ALT Troponin T C-Reactive Protein Total Protein Albumin Triglycerides LDL Cholesterol Direct HDL Cholesterol Urine WBC (Auto) Vancomycin Trough Salicylates Acetaminophen % CD3 Cells % CD19 Cells Absolute CD19 Count Miscellaneous Test Crossmatch 08/28/18 08/28/18 08/28/18 05:03 05:20 05:20 WBC RBC 2.43 L Hgb 7.4 L Hct 21.8 L RDW 20.8 H Plt Count Lymph % (Auto) 7.6 L [place] % (Auto) 8.7 H Lymph # 0.7 L [place] # Seg Neutrophils % 82.9 H Seg Neuts % (Manual) Lymphocytes % (Manual) Nucleated RBC % Seg Neutrophils # Seg Neutrophils # Man Lymphocytes # (Manual) D-Dimer POC ABG pH POC ABG pCO2 POC ABG pO2 VBG pH Sodium Potassium Chloride 107.8 H Carbon Dioxide 21 L BUN 55 H Creatinine 2.0 H Glucose 177 H POC Glucose 160 H Hemoglobin A1c Lactic Acid Calcium Phosphorus Magnesium Iron TIBC AST ALT Troponin T C-Reactive Protein Total Protein Albumin Triglycerides LDL Cholesterol Direct HDL Cholesterol Urine WBC (Auto) Vancomycin Trough Salicylates Acetaminophen % CD3 Cells % CD19 Cells Absolute CD19 Count Miscellaneous Test Crossmatch 08/28/18 08/28/18 08/28/18 12:18 18:58 22:31 WBC RBC Hgb Hct RDW Plt Count Lymph % (Auto) [place] % (Auto) Lymph # [place] # Seg Neutrophils % Seg Neuts % (Manual) Lymphocytes % (Manual) Nucleated RBC % Seg Neutrophils # Seg Neutrophils # Man Lymphocytes # (Manual) D-Dimer POC ABG pH POC ABG pCO2 34.4 L POC ABG pO2 67 L VBG pH Sodium Potassium Chloride Carbon Dioxide BUN Creatinine Glucose POC Glucose 164 H 149 H Hemoglobin A1c Lactic Acid Calcium Phosphorus Magnesium Iron TIBC AST ALT Troponin T C-Reactive Protein Total Protein Albumin Triglycerides LDL Cholesterol Direct HDL Cholesterol Urine WBC (Auto) Vancomycin Trough Salicylates Acetaminophen % CD3 Cells % CD19 Cells Absolute CD19 Count Miscellaneous Test Crossmatch 08/28/18 08/29/18 08/29/18 23:33 05:25 05:25 WBC RBC 2.30 L Hgb 7.0 L Hct 20.9 L RDW 21.0 H Plt Count Lymph % (Auto) 11.5 L [place] % (Auto) 9.2 H Lymph # 0.8 L [place] # Seg Neutrophils % 78.8 H Seg Neuts % (Manual) Lymphocytes % (Manual) Nucleated RBC % Seg Neutrophils # Seg Neutrophils # Man Lymphocytes # (Manual) D-Dimer POC ABG pH POC ABG pCO2 POC ABG pO2 VBG pH Sodium Potassium Chloride 111.1 H Carbon Dioxide BUN 55 H Creatinine 1.8 H Glucose 162 H POC Glucose 143 H Hemoglobin A1c Lactic Acid Calcium Phosphorus Magnesium Iron TIBC AST 46 H ALT < 5 L Troponin T C-Reactive Protein Total Protein 5.7 L Albumin 2.1 L Triglycerides LDL Cholesterol Direct HDL Cholesterol Urine WBC (Auto) Vancomycin Trough Salicylates Acetaminophen % CD3 Cells % CD19 Cells Absolute CD19 Count Miscellaneous Test Crossmatch 08/29/18 08/29/18 08/30/18 18:19 23:35 05:03 WBC RBC Hgb Hct RDW Plt Count Lymph % (Auto) [place] % (Auto) Lymph # [place] # Seg Neutrophils % Seg Neuts % (Manual) Lymphocytes % (Manual) Nucleated RBC % Seg Neutrophils # Seg Neutrophils # Man Lymphocytes # (Manual) D-Dimer POC ABG pH POC ABG pCO2 POC ABG pO2 VBG pH Sodium Potassium Chloride Carbon Dioxide BUN Creatinine Glucose POC Glucose 155 H 139 H 122 H Hemoglobin A1c Lactic Acid Calcium Phosphorus Magnesium Iron TIBC AST ALT Troponin T C-Reactive Protein Total Protein Albumin Triglycerides LDL Cholesterol Direct HDL Cholesterol Urine WBC (Auto) Vancomycin Trough Salicylates Acetaminophen % CD3 Cells % CD19 Cells Absolute CD19 Count Miscellaneous Test Crossmatch 08/30/18 08/30/18 08/30/18 09:33 09:33 09:54 WBC RBC 2.58 L Hgb 7.9 L Hct 23.5 L RDW 20.9 H Plt Count Lymph % (Auto) 8.0 L [place] % (Auto) 9.7 H Lymph # 0.8 L [place] # 1.0 H Seg Neutrophils % 82.1 H Seg Neuts % (Manual) Lymphocytes % (Manual) Nucleated RBC % Seg Neutrophils # 8.2 H Seg Neutrophils # Man Lymphocytes # (Manual) D-Dimer POC ABG pH POC ABG pCO2 POC ABG pO2 VBG pH Sodium 146 H Potassium Chloride 110.7 H Carbon Dioxide BUN 56 H Creatinine 1.9 H Glucose 145 H POC Glucose Hemoglobin A1c Lactic Acid Calcium Phosphorus 4.60 H Magnesium Iron TIBC AST ALT < 5 L Troponin T C-Reactive Protein Total Protein Albumin 2.7 L Triglycerides LDL Cholesterol Direct HDL Cholesterol Urine WBC (Auto) Vancomycin Trough Salicylates Acetaminophen % CD3 Cells % CD19 Cells Absolute CD19 Count Miscellaneous Test Flexitest 1 H Crossmatch 08/30/18 08/30/18 08/30/18 09:57 11:26 18:08 WBC RBC Hgb Hct RDW Plt Count Lymph % (Auto) [place] % (Auto) Lymph # [place] # Seg Neutrophils % Seg Neuts % (Manual) Lymphocytes % (Manual) Nucleated RBC % Seg Neutrophils # Seg Neutrophils # Man Lymphocytes # (Manual) D-Dimer POC ABG pH POC ABG pCO2 POC ABG pO2 VBG pH Sodium Potassium Chloride Carbon Dioxide BUN Creatinine Glucose POC Glucose 149 H 156 H Hemoglobin A1c Lactic Acid Calcium Phosphorus Magnesium Iron TIBC AST ALT Troponin T C-Reactive Protein Total Protein Albumin Triglycerides LDL Cholesterol Direct HDL Cholesterol Urine WBC (Auto) Vancomycin Trough Salicylates Acetaminophen % CD3 Cells % CD19 Cells Absolute CD19 Count Miscellaneous Test Flexitest 1 H Crossmatch 08/30/18 08/31/18 08/31/18 23:14 05:16 08:40 WBC RBC Hgb Hct RDW Plt Count Lymph % (Auto) [place] % (Auto) Lymph # [place] # Seg Neutrophils % Seg Neuts % (Manual) Lymphocytes % (Manual) Nucleated RBC % Seg Neutrophils # Seg Neutrophils # Man Lymphocytes # (Manual) D-Dimer POC ABG pH POC ABG pCO2 POC ABG pO2 VBG pH Sodium 151 H Potassium Chloride 113.8 H Carbon Dioxide BUN 45 H Creatinine Glucose 144 H POC Glucose 117 H 133 H Hemoglobin A1c Lactic Acid Calcium Phosphorus Magnesium Iron TIBC AST ALT Troponin T C-Reactive Protein Total Protein Albumin Triglycerides LDL Cholesterol Direct HDL Cholesterol Urine WBC (Auto) Vancomycin Trough Salicylates Acetaminophen % CD3 Cells % CD19 Cells Absolute CD19 Count Miscellaneous Test Crossmatch 08/31/18 09/01/18 09/01/18 23:46 04:45 04:45 WBC RBC 2.38 L Hgb 7.3 L Hct 22.1 L RDW 21.1 H Plt Count Lymph % (Auto) [place] % (Auto) Lymph # [place] # Seg Neutrophils % Seg Neuts % (Manual) 93.0 H Lymphocytes % (Manual) 4.0 L Nucleated RBC % Seg Neutrophils # Seg Neutrophils # Man 10.1 H Lymphocytes # (Manual) 0.4 L D-Dimer POC ABG pH POC ABG pCO2 POC ABG pO2 VBG pH Sodium 156 H Potassium 3.1 L Chloride 115.2 H Carbon Dioxide BUN 34 H Creatinine Glucose 125 H POC Glucose 124 H Hemoglobin A1c Lactic Acid Calcium Phosphorus Magnesium Iron TIBC AST ALT Troponin T C-Reactive Protein Total Protein Albumin Triglycerides LDL Cholesterol Direct HDL Cholesterol Urine WBC (Auto) Vancomycin Trough Salicylates Acetaminophen % CD3 Cells % CD19 Cells Absolute CD19 Count Miscellaneous Test Crossmatch 09/01/18 09/01/18 09/01/18 05:34 11:20 17:52 WBC RBC Hgb Hct RDW Plt Count Lymph % (Auto) [place] % (Auto) Lymph # [place] # Seg Neutrophils % Seg Neuts % (Manual) Lymphocytes % (Manual) Nucleated RBC % Seg Neutrophils # Seg Neutrophils # Man Lymphocytes # (Manual) D-Dimer POC ABG pH 7.553 H POC ABG pCO2 POC ABG pO2 74 L VBG pH Sodium Potassium Chloride Carbon Dioxide BUN Creatinine Glucose POC Glucose 128 H 146 H Hemoglobin A1c Lactic Acid Calcium Phosphorus Magnesium Iron TIBC AST ALT Troponin T C-Reactive Protein Total Protein Albumin Triglycerides LDL Cholesterol Direct HDL Cholesterol Urine WBC (Auto) Vancomycin Trough Salicylates Acetaminophen % CD3 Cells % CD19 Cells Absolute CD19 Count Miscellaneous Test Crossmatch 09/01/18 09/02/18 09/02/18 17:52 04:13 04:58 WBC 16.4 H RBC 2.64 L Hgb 7.9 L Hct 24.3 L RDW 20.8 H Plt Count Lymph % (Auto) [place] % (Auto) Lymph # [place] # Seg Neutrophils % Seg Neuts % (Manual) 96.0 H Lymphocytes % (Manual) 1.0 L Nucleated RBC % Seg Neutrophils # Seg Neutrophils # Man 15.7 H Lymphocytes # (Manual) 0.2 L D-Dimer POC ABG pH 7.488 H POC ABG pCO2 POC ABG pO2 63 L VBG pH Sodium Potassium Chloride Carbon Dioxide BUN Creatinine Glucose POC Glucose 143 H Hemoglobin A1c Lactic Acid Calcium Phosphorus Magnesium Iron TIBC AST ALT Troponin T C-Reactive Protein Total Protein Albumin Triglycerides LDL Cholesterol Direct HDL Cholesterol Urine WBC (Auto) Vancomycin Trough Salicylates Acetaminophen % CD3 Cells % CD19 Cells Absolute CD19 Count Miscellaneous Test Crossmatch 09/02/18 09/02/18 09/02/18 04:58 11:03 18:18 WBC RBC Hgb Hct RDW Plt Count Lymph % (Auto) [place] % (Auto) Lymph # [place] # Seg Neutrophils % Seg Neuts % (Manual) Lymphocytes % (Manual) Nucleated RBC % Seg Neutrophils # Seg Neutrophils # Man Lymphocytes # (Manual) D-Dimer POC ABG pH 7.344 L POC ABG pCO2 52.8 H POC ABG pO2 VBG pH Sodium 158 H Potassium 2.9 L* Chloride 115.7 H Carbon Dioxide BUN 27 H Creatinine 0.6 L Glucose 128 H POC Glucose 121 H Hemoglobin A1c Lactic Acid Calcium Phosphorus Magnesium 1.60 L Iron TIBC AST 64 H ALT Troponin T C-Reactive Protein Total Protein Albumin 2.6 L Triglycerides LDL Cholesterol Direct HDL Cholesterol Urine WBC (Auto) Vancomycin Trough Salicylates Acetaminophen % CD3 Cells % CD19 Cells Absolute CD19 Count Miscellaneous Test Crossmatch 09/02/18 09/03/18 09/03/18 23:06 03:36 04:25 WBC RBC 2.20 L Hgb 6.7 L Hct 20.9 L RDW 21.1 H Plt Count Lymph % (Auto) [place] % (Auto) Lymph # [place] # Seg Neutrophils % Seg Neuts % (Manual) 90.0 H Lymphocytes % (Manual) 5.0 L Nucleated RBC % Seg Neutrophils # Seg Neutrophils # Man 8.7 H Lymphocytes # (Manual) 0.5 L D-Dimer POC ABG pH POC ABG pCO2 POC ABG pO2 54 L VBG pH Sodium Potassium Chloride Carbon Dioxide BUN Creatinine Glucose POC Glucose 121 H Hemoglobin A1c Lactic Acid Calcium Phosphorus Magnesium Iron TIBC AST ALT Troponin T C-Reactive Protein Total Protein Albumin Triglycerides LDL Cholesterol Direct HDL Cholesterol Urine WBC (Auto) Vancomycin Trough Salicylates Acetaminophen % CD3 Cells % CD19 Cells Absolute CD19 Count Miscellaneous Test Crossmatch 09/03/18 09/03/18 09/03/18 04:25 05:45 10:24 WBC RBC Hgb Hct RDW Plt Count Lymph % (Auto) [place] % (Auto) Lymph # [place] # Seg Neutrophils % Seg Neuts % (Manual) Lymphocytes % (Manual) Nucleated RBC % Seg Neutrophils # Seg Neutrophils # Man Lymphocytes # (Manual) D-Dimer POC ABG pH POC ABG pCO2 POC ABG pO2 VBG pH Sodium 158 H Potassium 3.1 L Chloride 120.4 H Carbon Dioxide BUN 25 H Creatinine 0.6 L Glucose 127 H POC Glucose 178 H Hemoglobin A1c Lactic Acid Calcium 7.9 L Phosphorus Magnesium Iron TIBC AST ALT Troponin T C-Reactive Protein Total Protein 6.0 L Albumin 2.4 L Triglycerides LDL Cholesterol Direct HDL Cholesterol Urine WBC (Auto) Vancomycin Trough Salicylates Acetaminophen % CD3 Cells % CD19 Cells Absolute CD19 Count Miscellaneous Test Crossmatch See Detail 09/03/18 09/03/18 09/04/18 11:27 23:09 04:42 WBC RBC Hgb Hct RDW Plt Count Lymph % (Auto) [place] % (Auto) Lymph # [place] # Seg Neutrophils % Seg Neuts % (Manual) Lymphocytes % (Manual) Nucleated RBC % Seg Neutrophils # Seg Neutrophils # Man Lymphocytes # (Manual) D-Dimer POC ABG pH 7.293 L POC ABG pCO2 50.2 H POC ABG pO2 VBG pH Sodium Potassium Chloride Carbon Dioxide BUN Creatinine Glucose POC Glucose 107 H 139 H Hemoglobin A1c Lactic Acid Calcium Phosphorus Magnesium Iron TIBC AST ALT Troponin T C-Reactive Protein Total Protein Albumin Triglycerides LDL Cholesterol Direct HDL Cholesterol Urine WBC (Auto) Vancomycin Trough Salicylates Acetaminophen % CD3 Cells % CD19 Cells Absolute CD19 Count Miscellaneous Test Crossmatch 09/04/18 09/04/18 09/04/18 05:00 06:30 06:30 WBC RBC 2.32 L Hgb 7.0 L Hct 21.9 L RDW 20.2 H Plt Count Lymph % (Auto) [place] % (Auto) Lymph # [place] # Seg Neutrophils % 80.1 H Seg Neuts % (Manual) Lymphocytes % (Manual) Nucleated RBC % Seg Neutrophils # 8.2 H Seg Neutrophils # Man Lymphocytes # (Manual) D-Dimer POC ABG pH POC ABG pCO2 POC ABG pO2 VBG pH Sodium 150 H D Potassium Chloride 115.9 H Carbon Dioxide BUN 21 H Creatinine 0.6 L Glucose 125 H POC Glucose 154 H Hemoglobin A1c Lactic Acid Calcium 7.9 L Phosphorus Magnesium 1.50 L Iron TIBC AST ALT Troponin T C-Reactive Protein Total Protein Albumin Triglycerides LDL Cholesterol Direct HDL Cholesterol Urine WBC (Auto) Vancomycin Trough Salicylates Acetaminophen % CD3 Cells % CD19 Cells Absolute CD19 Count Miscellaneous Test Crossmatch 09/04/18 09/04/18 09/04/18 11:20 11:51 18:27 WBC RBC Hgb Hct RDW Plt Count Lymph % (Auto) [place] % (Auto) Lymph # [place] # Seg Neutrophils % Seg Neuts % (Manual) Lymphocytes % (Manual) Nucleated RBC % Seg Neutrophils # Seg Neutrophils # Man Lymphocytes # (Manual) D-Dimer POC ABG pH 7.244 L POC ABG pCO2 54.2 H POC ABG pO2 62 L VBG pH Sodium Potassium Chloride Carbon Dioxide BUN Creatinine Glucose POC Glucose 156 H 129 H Hemoglobin A1c Lactic Acid Calcium Phosphorus Magnesium Iron TIBC AST ALT Troponin T C-Reactive Protein Total Protein Albumin Triglycerides LDL Cholesterol Direct HDL Cholesterol Urine WBC (Auto) Vancomycin Trough Salicylates Acetaminophen % CD3 Cells % CD19 Cells Absolute CD19 Count Miscellaneous Test Crossmatch 09/05/18 09/05/18 09/05/18 03:46 04:00 04:00 WBC RBC 2.13 L Hgb 6.4 L Hct 20.1 L RDW 19.9 H Plt Count 117 L Lymph % (Auto) [place] % (Auto) Lymph # 0.9 L [place] # Seg Neutrophils % 81.7 H Seg Neuts % (Manual) Lymphocytes % (Manual) Nucleated RBC % Seg Neutrophils # Seg Neutrophils # Man Lymphocytes # (Manual) D-Dimer POC ABG pH 7.282 L POC ABG pCO2 57.3 H POC ABG pO2 124 H VBG pH Sodium Potassium Chloride 111.0 H Carbon Dioxide BUN 20 H Creatinine Glucose 130 H POC Glucose Hemoglobin A1c Lactic Acid Calcium 7.8 L Phosphorus Magnesium 1.60 L Iron TIBC AST ALT Troponin T C-Reactive Protein Total Protein Albumin Triglycerides LDL Cholesterol Direct HDL Cholesterol Urine WBC (Auto) Vancomycin Trough Salicylates Acetaminophen % CD3 Cells % CD19 Cells Absolute CD19 Count Miscellaneous Test Crossmatch 09/05/18 09/05/18 09/05/18 12:15 17:24 23:24 WBC RBC Hgb Hct RDW Plt Count Lymph % (Auto) [place] % (Auto) Lymph # [place] # Seg Neutrophils % Seg Neuts % (Manual) Lymphocytes % (Manual) Nucleated RBC % Seg Neutrophils # Seg Neutrophils # Man Lymphocytes # (Manual) D-Dimer POC ABG pH POC ABG pCO2 POC ABG pO2 VBG pH Sodium Potassium Chloride Carbon Dioxide BUN Creatinine Glucose POC Glucose 143 H 116 H 116 H Hemoglobin A1c Lactic Acid Calcium Phosphorus Magnesium Iron TIBC AST ALT Troponin T C-Reactive Protein Total Protein Albumin Triglycerides LDL Cholesterol Direct HDL Cholesterol Urine WBC (Auto) Vancomycin Trough Salicylates Acetaminophen % CD3 Cells % CD19 Cells Absolute CD19 Count Miscellaneous Test Crossmatch 09/06/18 09/06/18 09/06/18 03:33 04:20 04:20 WBC RBC 2.45 L Hgb 7.4 L Hct 23.0 L RDW 18.1 H Plt Count 99 L Lymph % (Auto) [place] % (Auto) Lymph # 1.0 L [place] # Seg Neutrophils % 78.0 H Seg Neuts % (Manual) Lymphocytes % (Manual) Nucleated RBC % Seg Neutrophils # Seg Neutrophils # Man Lymphocytes # (Manual) D-Dimer POC ABG pH 7.303 L POC ABG pCO2 49.2 H POC ABG pO2 73 L VBG pH Sodium Potassium Chloride 109.3 H Carbon Dioxide BUN 24 H Creatinine Glucose 108 H POC Glucose Hemoglobin A1c Lactic Acid Calcium 8.1 L Phosphorus Magnesium Iron TIBC AST ALT Troponin T C-Reactive Protein Total Protein Albumin Triglycerides LDL Cholesterol Direct HDL Cholesterol Urine WBC (Auto) Vancomycin Trough Salicylates Acetaminophen % CD3 Cells % CD19 Cells Absolute CD19 Count Miscellaneous Test Crossmatch 09/06/18 09/06/18 09/06/18 04:55 11:29 14:40 WBC RBC Hgb Hct RDW Plt Count Lymph % (Auto) [place] % (Auto) Lymph # [place] # Seg Neutrophils % Seg Neuts % (Manual) Lymphocytes % (Manual) Nucleated RBC % Seg Neutrophils # Seg Neutrophils # Man Lymphocytes # (Manual) D-Dimer POC ABG pH POC ABG pCO2 POC ABG pO2 VBG pH Sodium Potassium Chloride Carbon Dioxide BUN Creatinine Glucose POC Glucose 124 H 149 H Hemoglobin A1c Lactic Acid Calcium Phosphorus Magnesium Iron TIBC AST ALT Troponin T C-Reactive Protein Total Protein Albumin Triglycerides LDL Cholesterol Direct HDL Cholesterol Urine WBC (Auto) Vancomycin Trough 28.6 H Salicylates Acetaminophen % CD3 Cells % CD19 Cells Absolute CD19 Count Miscellaneous Test Crossmatch 09/06/18 09/06/18 09/07/18 17:43 20:08 00:39 WBC RBC Hgb Hct RDW Plt Count Lymph % (Auto) [place] % (Auto) Lymph # [place] # Seg Neutrophils % Seg Neuts % (Manual) Lymphocytes % (Manual) Nucleated RBC % Seg Neutrophils # Seg Neutrophils # Man Lymphocytes # (Manual) D-Dimer POC ABG pH POC ABG pCO2 POC ABG pO2 VBG pH Sodium Potassium Chloride Carbon Dioxide BUN Creatinine Glucose POC Glucose 138 H 118 H 131 H Hemoglobin A1c Lactic Acid Calcium Phosphorus Magnesium Iron TIBC AST ALT Troponin T C-Reactive Protein Total Protein Albumin Triglycerides LDL Cholesterol Direct HDL Cholesterol Urine WBC (Auto) Vancomycin Trough Salicylates Acetaminophen % CD3 Cells % CD19 Cells Absolute CD19 Count Miscellaneous Test Crossmatch 09/07/18 09/07/18 09/07/18 05:40 05:40 12:03 WBC RBC 2.40 L Hgb 7.3 L Hct 22.5 L RDW 17.8 H Plt Count 92 L Lymph % (Auto) [place] % (Auto) Lymph # [place] # Seg Neutrophils % Seg Neuts % (Manual) 80.0 H Lymphocytes % (Manual) Nucleated RBC % 1.0 H Seg Neutrophils # Seg Neutrophils # Man Lymphocytes # (Manual) 0.8 L D-Dimer POC ABG pH POC ABG pCO2 POC ABG pO2 VBG pH Sodium Potassium Chloride 109.8 H Carbon Dioxide BUN 26 H Creatinine Glucose 118 H POC Glucose 145 H Hemoglobin A1c Lactic Acid Calcium 8.0 L Phosphorus Magnesium Iron 26 L TIBC 150 L AST 88 H ALT Troponin T C-Reactive Protein Total Protein 5.8 L Albumin 2.1 L Triglycerides LDL Cholesterol Direct HDL Cholesterol Urine WBC (Auto) Vancomycin Trough Salicylates Acetaminophen % CD3 Cells % CD19 Cells Absolute CD19 Count Miscellaneous Test Crossmatch 09/07/18 09/07/18 09/08/18 17:39 23:21 05:48 WBC RBC Hgb Hct RDW Plt Count Lymph % (Auto) [place] % (Auto) Lymph # [place] # Seg Neutrophils % Seg Neuts % (Manual) Lymphocytes % (Manual) Nucleated RBC % Seg Neutrophils # Seg Neutrophils # Man Lymphocytes # (Manual) D-Dimer POC ABG pH POC ABG pCO2 POC ABG pO2 VBG pH Sodium Potassium Chloride Carbon Dioxide BUN Creatinine Glucose POC Glucose 128 H 136 H 129 H Hemoglobin A1c Lactic Acid Calcium Phosphorus Magnesium Iron TIBC AST ALT Troponin T C-Reactive Protein Total Protein Albumin Triglycerides LDL Cholesterol Direct HDL Cholesterol Urine WBC (Auto) Vancomycin Trough Salicylates Acetaminophen % CD3 Cells % CD19 Cells Absolute CD19 Count Miscellaneous Test Crossmatch 09/08/18 09/08/18 09/08/18 06:17 10:06 10:42 WBC RBC Hgb Hct RDW Plt Count Lymph % (Auto) [place] % (Auto) Lymph # [place] # Seg Neutrophils % Seg Neuts % (Manual) Lymphocytes % (Manual) Nucleated RBC % Seg Neutrophils # Seg Neutrophils # Man Lymphocytes # (Manual) D-Dimer POC ABG pH 7.292 L 7.276 L POC ABG pCO2 56.9 H 65.1 H POC ABG pO2 VBG pH Sodium 146 H Potassium Chloride 109.1 H Carbon Dioxide BUN 28 H Creatinine Glucose 165 H POC Glucose Hemoglobin A1c Lactic Acid Calcium Phosphorus Magnesium Iron TIBC AST ALT Troponin T C-Reactive Protein Total Protein Albumin Triglycerides LDL Cholesterol Direct HDL Cholesterol Urine WBC (Auto) Vancomycin Trough Salicylates Acetaminophen % CD3 Cells % CD19 Cells Absolute CD19 Count Miscellaneous Test Crossmatch 09/08/18 09/08/18 09/08/18 11:06 18:07 23:20 WBC RBC Hgb Hct RDW Plt Count Lymph % (Auto) [place] % (Auto) Lymph # [place] # Seg Neutrophils % Seg Neuts % (Manual) Lymphocytes % (Manual) Nucleated RBC % Seg Neutrophils # Seg Neutrophils # Man Lymphocytes # (Manual) D-Dimer POC ABG pH POC ABG pCO2 POC ABG pO2 VBG pH Sodium Potassium Chloride Carbon Dioxide BUN Creatinine Glucose POC Glucose 165 H 140 H 124 H Hemoglobin A1c Lactic Acid Calcium Phosphorus Magnesium Iron TIBC AST ALT Troponin T C-Reactive Protein Total Protein Albumin Triglycerides LDL Cholesterol Direct HDL Cholesterol Urine WBC (Auto) Vancomycin Trough Salicylates Acetaminophen % CD3 Cells % CD19 Cells Absolute CD19 Count Miscellaneous Test Crossmatch 09/09/18 09/09/18 09/09/18 05:04 08:39 08:39 WBC RBC 2.60 L Hgb 8.1 L Hct 24.6 L RDW 17.9 H Plt Count Lymph % (Auto) [place] % (Auto) Lymph # [place] # Seg Neutrophils % Seg Neuts % (Manual) Lymphocytes % (Manual) Nucleated RBC % Seg Neutrophils # Seg Neutrophils # Man Lymphocytes # (Manual) D-Dimer POC ABG pH POC ABG pCO2 POC ABG pO2 VBG pH Sodium Potassium Chloride Carbon Dioxide BUN 32 H Creatinine Glucose 150 H POC Glucose 168 H Hemoglobin A1c Lactic Acid Calcium Phosphorus Magnesium Iron TIBC AST ALT Troponin T C-Reactive Protein Total Protein Albumin Triglycerides LDL Cholesterol Direct HDL Cholesterol Urine WBC (Auto) Vancomycin Trough Salicylates Acetaminophen % CD3 Cells % CD19 Cells Absolute CD19 Count Miscellaneous Test Crossmatch 09/09/18 09/10/18 09/10/18 12:41 04:20 04:20 WBC RBC 2.49 L Hgb 7.7 L Hct 23.4 L RDW 18.0 H Plt Count Lymph % (Auto) 8.2 L [place] % (Auto) Lymph # 0.7 L [place] # Seg Neutrophils % 87.7 H Seg Neuts % (Manual) Lymphocytes % (Manual) Nucleated RBC % Seg Neutrophils # Seg Neutrophils # Man Lymphocytes # (Manual) D-Dimer POC ABG pH POC ABG pCO2 POC ABG pO2 VBG pH Sodium Potassium Chloride Carbon Dioxide 31 H BUN 39 H Creatinine Glucose 183 H POC Glucose 150 H Hemoglobin A1c Lactic Acid Calcium Phosphorus Magnesium Iron TIBC AST 85 H ALT 58 H Troponin T C-Reactive Protein Total Protein Albumin 2.5 L Triglycerides LDL Cholesterol Direct HDL Cholesterol Urine WBC (Auto) Vancomycin Trough Salicylates Acetaminophen % CD3 Cells % CD19 Cells Absolute CD19 Count Miscellaneous Test Crossmatch 09/10/18 09/10/18 09/10/18 04:39 05:06 11:17 WBC RBC Hgb Hct RDW Plt Count Lymph % (Auto) [place] % (Auto) Lymph # [place] # Seg Neutrophils % Seg Neuts % (Manual) Lymphocytes % (Manual) Nucleated RBC % Seg Neutrophils # Seg Neutrophils # Man Lymphocytes # (Manual) D-Dimer POC ABG pH POC ABG pCO2 51.4 H POC ABG pO2 VBG pH Sodium Potassium Chloride Carbon Dioxide BUN Creatinine Glucose POC Glucose 185 H 159 H Hemoglobin A1c Lactic Acid Calcium Phosphorus Magnesium Iron TIBC AST ALT Troponin T C-Reactive Protein Total Protein Albumin Triglycerides LDL Cholesterol Direct HDL Cholesterol Urine WBC (Auto) Vancomycin Trough Salicylates Acetaminophen % CD3 Cells % CD19 Cells Absolute CD19 Count Miscellaneous Test Crossmatch 09/10/18 09/11/18 09/11/18 16:57 00:17 01:10 WBC RBC Hgb Hct RDW Plt Count Lymph % (Auto) [place] % (Auto) Lymph # [place] # Seg Neutrophils % Seg Neuts % (Manual) Lymphocytes % (Manual) Nucleated RBC % Seg Neutrophils # Seg Neutrophils # Man Lymphocytes # (Manual) D-Dimer POC ABG pH POC ABG pCO2 POC ABG pO2 VBG pH Sodium Potassium Chloride Carbon Dioxide 34 H BUN 44 H Creatinine Glucose 154 H POC Glucose 177 H 163 H Hemoglobin A1c Lactic Acid Calcium Phosphorus Magnesium Iron TIBC AST 86 H ALT 68 H Troponin T C-Reactive Protein Total Protein Albumin 2.6 L Triglycerides LDL Cholesterol Direct HDL Cholesterol Urine WBC (Auto) Vancomycin Trough Salicylates Acetaminophen % CD3 Cells % CD19 Cells Absolute CD19 Count Miscellaneous Test Crossmatch 09/11/18 09/11/18 09/11/18 01:10 06:03 09:00 WBC 13.7 H RBC 2.61 L Hgb 8.0 L Hct 24.6 L RDW 19.1 H Plt Count Lymph % (Auto) 6.1 L [place] % (Auto) Lymph # 0.8 L [place] # Seg Neutrophils % 87.7 H Seg Neuts % (Manual) Lymphocytes % (Manual) Nucleated RBC % Seg Neutrophils # 12.0 H Seg Neutrophils # Man Lymphocytes # (Manual) D-Dimer POC ABG pH POC ABG pCO2 POC ABG pO2 VBG pH Sodium Potassium Chloride Carbon Dioxide 33 H BUN 45 H Creatinine Glucose 147 H POC Glucose 180 H Hemoglobin A1c Lactic Acid Calcium Phosphorus Magnesium Iron TIBC AST ALT Troponin T C-Reactive Protein Total Protein Albumin Triglycerides LDL Cholesterol Direct HDL Cholesterol Urine WBC (Auto) Vancomycin Trough Salicylates Acetaminophen % CD3 Cells % CD19 Cells Absolute CD19 Count Miscellaneous Test Crossmatch 09/11/18 09/11/18 09/11/18 11:14 11:31 17:11 WBC RBC Hgb Hct RDW Plt Count Lymph % (Auto) [place] % (Auto) Lymph # [place] # Seg Neutrophils % Seg Neuts % (Manual) Lymphocytes % (Manual) Nucleated RBC % Seg Neutrophils # Seg Neutrophils # Man Lymphocytes # (Manual) D-Dimer POC ABG pH 7.498 H POC ABG pCO2 46.3 H POC ABG pO2 VBG pH Sodium Potassium Chloride Carbon Dioxide BUN Creatinine Glucose POC Glucose 163 H 202 H Hemoglobin A1c Lactic Acid Calcium Phosphorus Magnesium Iron TIBC AST ALT Troponin T C-Reactive Protein Total Protein Albumin Triglycerides LDL Cholesterol Direct HDL Cholesterol Urine WBC (Auto) Vancomycin Trough Salicylates Acetaminophen % CD3 Cells % CD19 Cells Absolute CD19 Count Miscellaneous Test Crossmatch 09/11/18 09/12/18 09/12/18 23:49 03:16 05:30 WBC RBC 2.36 L Hgb 7.3 L Hct 22.3 L RDW 18.4 H Plt Count Lymph % (Auto) 13.0 L [place] % (Auto) 9.3 H Lymph # 1.1 L [place] # Seg Neutrophils % 77.5 H Seg Neuts % (Manual) Lymphocytes % (Manual) Nucleated RBC % Seg Neutrophils # Seg Neutrophils # Man Lymphocytes # (Manual) D-Dimer POC ABG pH 7.517 H POC ABG pCO2 48.8 H POC ABG pO2 VBG pH Sodium Potassium Chloride Carbon Dioxide BUN Creatinine Glucose POC Glucose 163 H Hemoglobin A1c Lactic Acid Calcium Phosphorus Magnesium Iron TIBC AST ALT Troponin T C-Reactive Protein Total Protein Albumin Triglycerides LDL Cholesterol Direct HDL Cholesterol Urine WBC (Auto) Vancomycin Trough Salicylates Acetaminophen % CD3 Cells % CD19 Cells Absolute CD19 Count Miscellaneous Test Crossmatch 09/12/18 09/12/18 09/12/18 05:30 06:07 11:36 WBC RBC Hgb Hct RDW Plt Count Lymph % (Auto) [place] % (Auto) Lymph # [place] # Seg Neutrophils % Seg Neuts % (Manual) Lymphocytes % (Manual) Nucleated RBC % Seg Neutrophils # Seg Neutrophils # Man Lymphocytes # (Manual) D-Dimer POC ABG pH POC ABG pCO2 POC ABG pO2 VBG pH Sodium 148 H Potassium Chloride Carbon Dioxide 36 H BUN 46 H Creatinine Glucose 152 H POC Glucose 172 H 212 H Hemoglobin A1c Lactic Acid Calcium Phosphorus Magnesium Iron TIBC AST ALT Troponin T C-Reactive Protein Total Protein Albumin Triglycerides LDL Cholesterol Direct HDL Cholesterol Urine WBC (Auto) Vancomycin Trough Salicylates Acetaminophen % CD3 Cells % CD19 Cells Absolute CD19 Count Miscellaneous Test Crossmatch 09/12/18 09/12/18 09/13/18 18:02 23:19 03:55 WBC RBC Hgb Hct RDW Plt Count Lymph % (Auto) [place] % (Auto) Lymph # [place] # Seg Neutrophils % Seg Neuts % (Manual) Lymphocytes % (Manual) Nucleated RBC % Seg Neutrophils # Seg Neutrophils # Man Lymphocytes # (Manual) D-Dimer POC ABG pH 7.520 H POC ABG pCO2 48.0 H POC ABG pO2 58 L VBG pH Sodium Potassium Chloride Carbon Dioxide BUN Creatinine Glucose POC Glucose 142 H 161 H Hemoglobin A1c Lactic Acid Calcium Phosphorus Magnesium Iron TIBC AST ALT Troponin T C-Reactive Protein Total Protein Albumin Triglycerides LDL Cholesterol Direct HDL Cholesterol Urine WBC (Auto) Vancomycin Trough Salicylates Acetaminophen % CD3 Cells % CD19 Cells Absolute CD19 Count Miscellaneous Test Crossmatch 09/13/18 09/13/18 09/13/18 05:11 05:25 05:25 WBC RBC 2.38 L Hgb 7.6 L Hct 22.4 L RDW 18.6 H Plt Count Lymph % (Auto) [place] % (Auto) Lymph # [place] # Seg Neutrophils % Seg Neuts % (Manual) Lymphocytes % (Manual) Nucleated RBC % Seg Neutrophils # Seg Neutrophils # Man Lymphocytes # (Manual) D-Dimer POC ABG pH POC ABG pCO2 POC ABG pO2 VBG pH Sodium Potassium 3.2 L Chloride 97.5 L Carbon Dioxide 38 H BUN 38 H Creatinine 0.6 L Glucose 120 H POC Glucose 139 H Hemoglobin A1c Lactic Acid Calcium 8.1 L Phosphorus Magnesium Iron TIBC AST 120 H ALT 124 H Troponin T C-Reactive Protein Total Protein 5.9 L Albumin 2.6 L Triglycerides LDL Cholesterol Direct HDL Cholesterol Urine WBC (Auto) Vancomycin Trough Salicylates Acetaminophen % CD3 Cells % CD19 Cells Absolute CD19 Count Miscellaneous Test Crossmatch 09/13/18 09/13/18 09/13/18 11:31 17:46 23:23 WBC RBC Hgb Hct RDW Plt Count Lymph % (Auto) [place] % (Auto) Lymph # [place] # Seg Neutrophils % Seg Neuts % (Manual) Lymphocytes % (Manual) Nucleated RBC % Seg Neutrophils # Seg Neutrophils # Man Lymphocytes # (Manual) D-Dimer POC ABG pH POC ABG pCO2 POC ABG pO2 VBG pH Sodium Potassium Chloride Carbon Dioxide BUN Creatinine Glucose POC Glucose 160 H 145 H 135 H Hemoglobin A1c Lactic Acid Calcium Phosphorus Magnesium Iron TIBC AST ALT Troponin T C-Reactive Protein Total Protein Albumin Triglycerides LDL Cholesterol Direct HDL Cholesterol Urine WBC (Auto) Vancomycin Trough Salicylates Acetaminophen % CD3 Cells % CD19 Cells Absolute CD19 Count Miscellaneous Test Crossmatch 09/14/18 09/14/18 09/14/18 03:56 04:55 04:55 WBC RBC 2.28 L Hgb 7.1 L Hct 21.4 L RDW 18.2 H Plt Count Lymph % (Auto) [place] % (Auto) Lymph # [place] # Seg Neutrophils % 76.4 H Seg Neuts % (Manual) Lymphocytes % (Manual) Nucleated RBC % Seg Neutrophils # Seg Neutrophils # Man Lymphocytes # (Manual) D-Dimer POC ABG pH 7.503 H POC ABG pCO2 49.1 H POC ABG pO2 79 L VBG pH Sodium Potassium Chloride 97.7 L Carbon Dioxide 35 H BUN 32 H Creatinine 0.6 L Glucose 114 H POC Glucose Hemoglobin A1c Lactic Acid Calcium Phosphorus Magnesium Iron TIBC AST 60 H ALT 88 H Troponin T C-Reactive Protein Total Protein 5.6 L Albumin 2.2 L Triglycerides LDL Cholesterol Direct HDL Cholesterol Urine WBC (Auto) Vancomycin Trough Salicylates Acetaminophen % CD3 Cells % CD19 Cells Absolute CD19 Count Miscellaneous Test Crossmatch 09/14/18 09/14/18 09/14/18 05:14 12:00 12:27 WBC RBC Hgb Hct RDW Plt Count Lymph % (Auto) [place] % (Auto) Lymph # [place] # Seg Neutrophils % Seg Neuts % (Manual) Lymphocytes % (Manual) Nucleated RBC % Seg Neutrophils # Seg Neutrophils # Man Lymphocytes # (Manual) D-Dimer POC ABG pH POC ABG pCO2 POC ABG pO2 VBG pH Sodium Potassium Chloride Carbon Dioxide BUN Creatinine Glucose POC Glucose 115 H 125 H Hemoglobin A1c Lactic Acid Calcium Phosphorus Magnesium Iron TIBC AST ALT Troponin T C-Reactive Protein Total Protein Albumin Triglycerides LDL Cholesterol Direct HDL Cholesterol Urine WBC (Auto) Vancomycin Trough Salicylates Acetaminophen % CD3 Cells % CD19 Cells Absolute CD19 Count Miscellaneous Test Crossmatch See Detail 09/14/18 09/15/18 09/15/18 17:54 03:49 04:10 WBC RBC 2.46 L Hgb 7.7 L Hct 23.0 L RDW 18.6 H Plt Count Lymph % (Auto) [place] % (Auto) Lymph # 1.1 L [place] # Seg Neutrophils % 74.2 H Seg Neuts % (Manual) Lymphocytes % (Manual) Nucleated RBC % Seg Neutrophils # Seg Neutrophils # Man Lymphocytes # (Manual) D-Dimer POC ABG pH POC ABG pCO2 58.2 H POC ABG pO2 VBG pH Sodium Potassium Chloride Carbon Dioxide BUN Creatinine Glucose POC Glucose 138 H Hemoglobin A1c Lactic Acid Calcium Phosphorus Magnesium Iron TIBC AST ALT Troponin T C-Reactive Protein Total Protein Albumin Triglycerides LDL Cholesterol Direct HDL Cholesterol Urine WBC (Auto) Vancomycin Trough Salicylates Acetaminophen % CD3 Cells % CD19 Cells Absolute CD19 Count Miscellaneous Test Crossmatch 09/15/18 09/15/18 09/15/18 04:10 11:36 11:36 WBC RBC Hgb Hct RDW Plt Count Lymph % (Auto) [place] % (Auto) Lymph # [place] # Seg Neutrophils % Seg Neuts % (Manual) Lymphocytes % (Manual) Nucleated RBC % Seg Neutrophils # Seg Neutrophils # Man Lymphocytes # (Manual) D-Dimer POC ABG pH POC ABG pCO2 53.5 H POC ABG pO2 67 L VBG pH Sodium Potassium Chloride Carbon Dioxide 35 H BUN 21 H Creatinine Glucose POC Glucose 108 H Hemoglobin A1c Lactic Acid Calcium 7.9 L Phosphorus Magnesium Iron TIBC AST ALT Troponin T C-Reactive Protein Total Protein Albumin Triglycerides LDL Cholesterol Direct HDL Cholesterol Urine WBC (Auto) Vancomycin Trough Salicylates Acetaminophen % CD3 Cells % CD19 Cells Absolute CD19 Count Miscellaneous Test Crossmatch 09/16/18 09/16/18 09/16/18 01:16 04:25 11:30 WBC RBC 2.77 L Hgb 8.5 L Hct 25.6 L RDW 17.9 H Plt Count Lymph % (Auto) [place] % (Auto) Lymph # [place] # Seg Neutrophils % Seg Neuts % (Manual) Lymphocytes % (Manual) Nucleated RBC % Seg Neutrophils # Seg Neutrophils # Man Lymphocytes # (Manual) D-Dimer POC ABG pH 7.489 H POC ABG pCO2 47.6 H POC ABG pO2 62 L VBG pH Sodium Potassium Chloride Carbon Dioxide BUN Creatinine Glucose POC Glucose 108 H Hemoglobin A1c Lactic Acid Calcium Phosphorus Magnesium Iron TIBC AST ALT Troponin T C-Reactive Protein Total Protein Albumin Triglycerides LDL Cholesterol Direct HDL Cholesterol Urine WBC (Auto) Vancomycin Trough Salicylates Acetaminophen % CD3 Cells % CD19 Cells Absolute CD19 Count Miscellaneous Test Crossmatch 09/16/18 09/16/18 09/17/18 11:30 23:07 04:22 WBC RBC Hgb Hct RDW Plt Count Lymph % (Auto) [place] % (Auto) Lymph # [place] # Seg Neutrophils % Seg Neuts % (Manual) Lymphocytes % (Manual) Nucleated RBC % Seg Neutrophils # Seg Neutrophils # Man Lymphocytes # (Manual) D-Dimer POC ABG pH 7.576 H POC ABG pCO2 POC ABG pO2 58 L VBG pH Sodium Potassium 3.2 L Chloride 96.6 L Carbon Dioxide 34 H BUN Creatinine Glucose 128 H POC Glucose 147 H Hemoglobin A1c Lactic Acid Calcium Phosphorus Magnesium Iron TIBC AST ALT Troponin T C-Reactive Protein Total Protein Albumin Triglycerides LDL Cholesterol Direct HDL Cholesterol Urine WBC (Auto) Vancomycin Trough Salicylates Acetaminophen % CD3 Cells % CD19 Cells Absolute CD19 Count Miscellaneous Test Crossmatch 09/17/18 09/17/18 09/17/18 05:50 10:15 14:59 WBC RBC Hgb Hct RDW Plt Count Lymph % (Auto) [place] % (Auto) Lymph # [place] # Seg Neutrophils % Seg Neuts % (Manual) Lymphocytes % (Manual) Nucleated RBC % Seg Neutrophils # Seg Neutrophils # Man Lymphocytes # (Manual) D-Dimer POC ABG pH POC ABG pCO2 POC ABG pO2 VBG pH Sodium Potassium 2.6 L* Chloride 96.3 L Carbon Dioxide 33 H BUN Creatinine Glucose 151 H POC Glucose 138 H 151 H Hemoglobin A1c Lactic Acid Calcium Phosphorus Magnesium Iron TIBC AST ALT Troponin T C-Reactive Protein Total Protein Albumin Triglycerides LDL Cholesterol Direct HDL Cholesterol Urine WBC (Auto) Vancomycin Trough Salicylates Acetaminophen % CD3 Cells % CD19 Cells Absolute CD19 Count Miscellaneous Test Crossmatch 09/17/18 09/17/18 09/18/18 17:51 Unknown 00:11 WBC RBC Hgb Hct RDW Plt Count Lymph % (Auto) [place] % (Auto) Lymph # [place] # Seg Neutrophils % Seg Neuts % (Manual) Lymphocytes % (Manual) Nucleated RBC % Seg Neutrophils # Seg Neutrophils # Man Lymphocytes # (Manual) D-Dimer POC ABG pH POC ABG pCO2 POC ABG pO2 VBG pH Sodium Potassium 2.7 L* Chloride 97.5 L Carbon Dioxide 32 H BUN Creatinine Glucose 142 H POC Glucose 149 H 128 H Hemoglobin A1c Lactic Acid Calcium Phosphorus Magnesium Iron TIBC AST ALT Troponin T C-Reactive Protein Total Protein Albumin Triglycerides LDL Cholesterol Direct HDL Cholesterol Urine WBC (Auto) Vancomycin Trough Salicylates Acetaminophen % CD3 Cells % CD19 Cells Absolute CD19 Count Miscellaneous Test Crossmatch 09/18/18 09/18/18 09/18/18 04:20 04:20 04:28 WBC RBC 2.94 L Hgb 9.0 L Hct 27.2 L RDW 17.7 H Plt Count Lymph % (Auto) [place] % (Auto) 12.1 H Lymph # 1.0 L [place] # Seg Neutrophils % 70.2 H Seg Neuts % (Manual) Lymphocytes % (Manual) Nucleated RBC % Seg Neutrophils # Seg Neutrophils # Man Lymphocytes # (Manual) D-Dimer POC ABG pH 7.563 H POC ABG pCO2 POC ABG pO2 VBG pH Sodium Potassium 3.0 L Chloride Carbon Dioxide 33 H BUN Creatinine Glucose 133 H POC Glucose Hemoglobin A1c Lactic Acid Calcium Phosphorus Magnesium Iron TIBC AST ALT Troponin T C-Reactive Protein Total Protein Albumin Triglycerides LDL Cholesterol Direct HDL Cholesterol Urine WBC (Auto) Vancomycin Trough Salicylates Acetaminophen % CD3 Cells % CD19 Cells Absolute CD19 Count Miscellaneous Test Crossmatch 09/18/18 09/18/18 09/19/18 06:19 14:45 00:13 WBC RBC Hgb Hct RDW Plt Count Lymph % (Auto) [place] % (Auto) Lymph # [place] # Seg Neutrophils % Seg Neuts % (Manual) Lymphocytes % (Manual) Nucleated RBC % Seg Neutrophils # Seg Neutrophils # Man Lymphocytes # (Manual) D-Dimer POC ABG pH POC ABG pCO2 POC ABG pO2 VBG pH Sodium Potassium Chloride Carbon Dioxide BUN Creatinine Glucose POC Glucose 140 H 164 H 111 H Hemoglobin A1c Lactic Acid Calcium Phosphorus Magnesium Iron TIBC AST ALT Troponin T C-Reactive Protein Total Protein Albumin Triglycerides LDL Cholesterol Direct HDL Cholesterol Urine WBC (Auto) Vancomycin Trough Salicylates Acetaminophen % CD3 Cells % CD19 Cells Absolute CD19 Count Miscellaneous Test Crossmatch 09/19/18 09/19/18 09/19/18 03:38 05:08 05:20 WBC RBC Hgb Hct RDW Plt Count Lymph % (Auto) [place] % (Auto) Lymph # [place] # Seg Neutrophils % Seg Neuts % (Manual) Lymphocytes % (Manual) Nucleated RBC % Seg Neutrophils # Seg Neutrophils # Man Lymphocytes # (Manual) D-Dimer POC ABG pH 7.502 H POC ABG pCO2 34.6 L POC ABG pO2 73 L VBG pH Sodium Potassium 2.7 L* Chloride Carbon Dioxide BUN Creatinine 0.6 L Glucose 119 H POC Glucose 128 H Hemoglobin A1c Lactic Acid Calcium Phosphorus Magnesium Iron TIBC AST ALT Troponin T C-Reactive Protein Total Protein Albumin Triglycerides LDL Cholesterol Direct HDL Cholesterol Urine WBC (Auto) Vancomycin Trough Salicylates Acetaminophen % CD3 Cells % CD19 Cells Absolute CD19 Count Miscellaneous Test Crossmatch 09/20/18 09/20/18 09/20/18 04:20 04:20 05:15 WBC RBC 2.89 L Hgb 9.1 L Hct 27.1 L RDW 17.1 H Plt Count Lymph % (Auto) 12.6 L [place] % (Auto) 10.7 H Lymph # 1.1 L [place] # 0.9 H Seg Neutrophils % 76.1 H Seg Neuts % (Manual) Lymphocytes % (Manual) Nucleated RBC % Seg Neutrophils # Seg Neutrophils # Man Lymphocytes # (Manual) D-Dimer POC ABG pH POC ABG pCO2 33.6 L POC ABG pO2 56 L VBG pH Sodium 136 L Potassium 2.9 L* Chloride Carbon Dioxide BUN Creatinine Glucose 116 H POC Glucose Hemoglobin A1c Lactic Acid Calcium Phosphorus Magnesium Iron TIBC AST ALT Troponin T C-Reactive Protein Total Protein Albumin Triglycerides LDL Cholesterol Direct HDL Cholesterol Urine WBC (Auto) Vancomycin Trough Salicylates Acetaminophen % CD3 Cells % CD19 Cells Absolute CD19 Count Miscellaneous Test Crossmatch 09/20/18 11:26 WBC RBC Hgb Hct RDW Plt Count Lymph % (Auto) [place] % (Auto) Lymph # [place] # Seg Neutrophils % Seg Neuts % (Manual) Lymphocytes % (Manual) Nucleated RBC % Seg Neutrophils # Seg Neutrophils # Man Lymphocytes # (Manual) D-Dimer POC ABG pH POC ABG pCO2 POC ABG pO2 VBG pH Sodium Potassium Chloride Carbon Dioxide BUN Creatinine Glucose POC Glucose 163 H Hemoglobin A1c Lactic Acid Calcium Phosphorus Magnesium Iron TIBC AST ALT Troponin T C-Reactive Protein Total Protein Albumin Triglycerides LDL Cholesterol Direct HDL Cholesterol Urine WBC (Auto) Vancomycin Trough Salicylates Acetaminophen % CD3 Cells % CD19 Cells Absolute CD19 Count Miscellaneous Test Crossmatch Allied health notes reviewed: nursing
[2018-09-20] MEDS: KCL 10MEQ/100ML 10 MEQ/100 ML BAG IV SCH ×3 (12:45→15:17)
--- NOTE | 2018-09-20 13:44 | Progress Note ---
Assessment and Plan /Acute hypoxic hypercapnic respiratory failure; extubated 08/29/18 Re Intubated 09/02/18, vent dependent s/p trach on 09/14/18 Status post bronchoscopy, BAL negative cont nebulizers, pulmonary following /Dysphagia - cannot be placed PEG as could not be transilluminated stomach on EGD - Now planned to get PEG done by IR tomorrow, cont TF with dobhoff /Hypokalemia, cont to replete, normal Mg level, likely from diarrhea /Sepsis; new fever 102.6 on 09/18. Initially treated for aspiration pneumonia and Camryn glabrata fungemia; s/p micafungin, meropenem and Vanco per ID. Now being treated for possible C.def with vancomycin po, follow cx / Recent Camryn glabrata fungemia: treated /Thrombocytopenia: Platelet count is Stable Lovenox changed to Arixtra /Anemia: s/p transfusion[4 PRBC] Stool for occult blood x 2 negative, hematology following -Recent EGD at [facility] 08/08/2018 revealing irregular Z line, gastritis and small hiatal hernia - Recent colonoscopy at [facility] 08/08/2018 revealing sigmoid polyp, transverse colon polyps, inflamed hemorrhoids and diverticulosis /Hypomagnesemia; Hypernatremia; resolved, /Bileral lower extremity DVT; anticoagulation with arixtra CTA chest negative for PE /Hypertension; continue current antihypertensives /Severe malnutrition/hypoalbuminemia; Dietitian following, On TF /Acute kidney injury; probably secondary to ATN, Resolved, /Acute systolic congestive heart failure; EF 25-30%, Cardio following, monitor ins/os Previous echo 03/30/2016 at [facility] revealed normal LVEF Previous stress MPI 03/29/2016 at [facility] revealed no ischemia /Elevated Transaminases; resolved /-DVT prophylaxis; on full dose arixtra, Consults and recommendations noted and appreciated Plan of care reviewed with the patient's nurse and family The high probability of a clinically significant, sudden or life threatening deterioration of the [respiratory, cardiology, ID, renal and metabolic] system(s) required my full and direct attention, intervention and personal management. The aggregate critical care time was [32] minutes. This time is in addition to time spent performing reported procedures but includes the following: [x] Data Review and interpretation [x] Patient assessment and monitoring of vital signs [x] Documentation [x] Medication orders and management Disposition: Plan to d/c to LTAC after PEG. Brief History: 68-year-old female patient with history of COPD, arthritis s/p C-spine and lumbar spine surgery, Chronic pain syndrome who was found unconscious in her feces and vomitus, patients family was in [place] for a golf tournament. Patient was brought to the emergency room noted to be severely hypoxic and tachypneic, promptly intubated placed on ventilatory support and admitted to ICU patient was also noted to have possible aspiration pneumonia, completed treatment recommended by ID .currently monitoring of antibiotics . patient also had acute gastroenteritis acute kidney injury nonspecific elevation of troponins as well as septic shock evaluated by multiple specialties successfully weaned and extubated on 08/29/2018 however patient again went into acute respiratory failure requiring reintubation on 09/02/2018, Since then patient is vent dependent, planned for trach and PEG and placement. She is also being treated for acute b/l DVT diagnosed following admission while she was on DVT Px. s/p 4units of PRBC transfusion for anemia, no acute source of active bleeding so far. Spiking temp again with diarrhea, started on vancomycin PO, ID following. Work up so far: CT abdomen/pelvis CTA chest Head CT 2d echo Renal US CXRs abdominal xrys Hospitalist Physical General appearance: Present: no acute distress, well-nourished, obese, other (on vent with trach) - EENT Eyes: Present: PERRL, EOM intact - Neck Neck: Present: supple, trach on place - Respiratory Respiratory effort: normal Respiratory: bilateral: diminished, rhonchi, negative: rales, wheezing - Cardiovascular Rhythm: regular Heart Sounds: Present: S1 & S2 - Extremities Extremities: no ischemia, No edema - Abdominal General gastrointestinal: soft, non-tender, non-distended, normal bowel sounds - Integumentary Integumentary: Present: clear, warm - Psychiatric Psychiatric: cooperative, other (on vent) - Neurologic Neurologic: move extremities unpurposefull Subjective Date of service: 09/20/18 Principal diagnosis: Acute hypoxemic hypercapnic Resp failure; AE-COPD; Acute kidney injury Interval history: Patient seen and examined medical records reviewed Patient on ventilator support with trach Alert and awake not in acute distress Vital signs noted, planned for PEG tomorrow Objective - Constitutional Vitals: Vital Signs - 12hr 09/20/18 09/20/18 09/20/18 01:45 02:00 02:15 Temperature Pulse Rate 80 79 81 Pulse Rate [ Anterior Bilateral Throughout] Pulse Rate [ Anterior Bilateral] Pulse Rate [ From Monitor] Respiratory 26 H 22 22 Rate Respiratory Rate [Anterior Bilateral Throughout] Respiratory Rate [Anterior Bilateral] Blood Pressure 134/59 134/61 134/61 O2 Sat by Pulse 98 95 97 Oximetry O2 Sat by Pulse Oximetry [ Assessment] 09/20/18 09/20/18 09/20/18 02:30 02:41 02:57 Temperature Pulse Rate 81 Pulse Rate [ Anterior Bilateral Throughout] Pulse Rate [ 75 77 Anterior Bilateral] Pulse Rate [ From Monitor] Respiratory 23 Rate Respiratory Rate [Anterior Bilateral Throughout] Respiratory 26 H 26 H Rate [Anterior Bilateral] Blood Pressure 144/61 O2 Sat by Pulse 95 Oximetry O2 Sat by Pulse Oximetry [ Assessment] 09/20/18 09/20/18 09/20/18 03:00 03:30 04:00 Temperature 99 F Pulse Rate 82 82 94 H Pulse Rate [ Anterior Bilateral Throughout] Pulse Rate [ Anterior Bilateral] Pulse Rate [ 73 From Monitor] Respiratory 30 H 32 H 22 Rate Respiratory Rate [Anterior Bilateral Throughout] Respiratory Rate [Anterior Bilateral] Blood Pressure 144/61 143/60 129/69 O2 Sat by Pulse 97 97 99 Oximetry O2 Sat by Pulse 98 Oximetry [ Assessment] 09/20/18 09/20/18 09/20/18 04:30 05:00 05:09 Temperature Pulse Rate 79 80 80 Pulse Rate [ Anterior Bilateral Throughout] Pulse Rate [ Anterior Bilateral] Pulse Rate [ From Monitor] Respiratory 25 H 25 H Rate Respiratory Rate [Anterior Bilateral Throughout] Respiratory Rate [Anterior Bilateral] Blood Pressure 133/82 139/96 139/96 O2 Sat by Pulse 95 98 98 Oximetry O2 Sat by Pulse Oximetry [ Assessment] 09/20/18 09/20/18 09/20/18 05:30 05:36 06:00 Temperature Pulse Rate 80 83 90 Pulse Rate [ Anterior Bilateral Throughout] Pulse Rate [ Anterior Bilateral] Pulse Rate [ From Monitor] Respiratory 29 H 41 H Rate Respiratory Rate [Anterior Bilateral Throughout] Respiratory Rate [Anterior Bilateral] Blood Pressure 144/63 144/63 144/63 O2 Sat by Pulse 96 96 Oximetry O2 Sat by Pulse Oximetry [ Assessment] 09/20/18 09/20/18 09/20/18 06:30 07:00 07:14 Temperature Pulse Rate 86 91 H Pulse Rate [ 89 Anterior Bilateral Throughout] Pulse Rate [ 88 Anterior Bilateral] Pulse Rate [ From Monitor] Respiratory 24 25 H Rate Respiratory 26 H Rate [Anterior Bilateral Throughout] Respiratory 27 H Rate [Anterior Bilateral] Blood Pressure 136/70 128/73 O2 Sat by Pulse 95 95 Oximetry O2 Sat by Pulse Oximetry [ Assessment] 09/20/18 09/20/18 09/20/18 07:46 07:57 09:20 Temperature 98.7 F Pulse Rate 91 H Pulse Rate [ Anterior Bilateral Throughout] Pulse Rate [ Anterior Bilateral] Pulse Rate [ From Monitor] Respiratory 23 Rate Respiratory Rate [Anterior Bilateral Throughout] Respiratory Rate [Anterior Bilateral] Blood Pressure 128/73 O2 Sat by Pulse 95 Oximetry O2 Sat by Pulse 97 Oximetry [ Assessment] 09/20/18 09/20/18 09/20/18 11:10 11:13 11:37 Temperature Pulse Rate 91 H 100 H Pulse Rate [ Anterior Bilateral Throughout] Pulse Rate [ Anterior Bilateral] Pulse Rate [ From Monitor] Respiratory 34 H Rate Respiratory Rate [Anterior Bilateral Throughout] Respiratory Rate [Anterior Bilateral] Blood Pressure 128/73 155/59 O2 Sat by Pulse 95 Oximetry O2 Sat by Pulse Oximetry [ Assessment] 09/20/18 09/20/18 11:56 12:37 Temperature 99.5 F Pulse Rate Pulse Rate [ Anterior Bilateral Throughout] Pulse Rate [ Anterior Bilateral] Pulse Rate [ From Monitor] Respiratory 27 H Rate Respiratory Rate [Anterior Bilateral Throughout] Respiratory Rate [Anterior Bilateral] Blood Pressure O2 Sat by Pulse Oximetry O2 Sat by Pulse Oximetry [ Assessment] - Labs CBC & Chem 7: 09/20/18 04:20 09/20/18 04:20 Labs: Abnormal lab results 09/20/18 09/20/18 09/20/18 Range/Units 04:20 04:20 05:15 RBC 2.89 L (3.65-5.03) M/mm3 Hgb 9.1 L (10.1-14.3) gm/dl Hct 27.1 L (30.3-42.9) % RDW 17.1 H (13.2-15.2) % Lymph % (Auto) 12.6 L (13.4-35.0) % [place] % (Auto) 10.7 H (0.0-7.3) % Lymph # 1.1 L (1.2-5.4) K/mm3 [place] # 0.9 H (0.0-0.8) K/mm3 Seg Neutrophils % 76.1 H (40.0-70.0) % POC ABG pCO2 33.6 L (35-45) POC ABG pO2 56 L (80-105) Sodium 136 L (137-145) mmol/L Potassium 2.9 L* (3.6-5.0) mmol/L Glucose 116 H (65-100) mg/dL POC Glucose (70-105) 09/20/18 Range/Units 11:26 RBC (3.65-5.03) M/mm3 Hgb (10.1-14.3) gm/dl Hct (30.3-42.9) % RDW (13.2-15.2) % Lymph % (Auto) (13.4-35.0) % [place] % (Auto) (0.0-7.3) % Lymph # (1.2-5.4) K/mm3 [place] # (0.0-0.8) K/mm3 Seg Neutrophils % (40.0-70.0) % POC ABG pCO2 (35-45) POC ABG pO2 (80-105) Sodium (137-145) mmol/L Potassium (3.6-5.0) mmol/L Glucose (65-100) mg/dL POC Glucose 163 H (70-105)
[2018-09-20] MEDS ORDERED: POTASSIUM CHLORIDE PO ONE (14:00)
[2018-09-20 17:23] LABS: Bacteria,Urine 1+ /HPF (Negative); Bilirubin,Urine NEG (Negative); Blood,Urine LG (Negative); Color,Urine Straw (Yellow); Mucus,Urine FEW /HPF; Protein,Urine <15 mg/dL mg/dL (Negative); Urobilinogen,Urine < 2.0 mg/dL (<2.0)
[2018-09-20 17:28] LABS: RBC,Urine > 182.0 /HPF (0.0-6.0)
[2018-09-20] MEDS: POTASSIUM CHLORIDE PO SCH (22:34)
[2018-09-21] MEDS: DILAUDID PO SCH ×5 (00:34→23:54)
[2018-09-21] MEDS: VANCOMYCIN PO PO SCH ×2 (00:34→05:46)
[2018-09-21] MEDS: HumaLOG SUB-Q SCH ×4 (00:35→18:00)
[2018-09-21 05:02] LABS: Basophils % (Auto) 0.3 % (0.0-1.8); Hematocrit 25.1 % (30.3-42.9); Hemoglobin 8.3 gm/dl (10.1-14.3); Lymphocytes # (Auto) 1.2 K/mm3 (1.2-5.4); Lymphocytes % (Auto) 20.7 % (13.4-35.0); Mean Corpuscular HGB Conc 33 % (30-34); Mean Corpuscular Volume 94 fl (79-97); Monocytes # (Auto) 0.6 K/mm3 (0.0-0.8); Platelet Count 213 K/mm3 (140-440); Red Blood Count 2.67 M/mm3 (3.65-5.03); Red Cell Distribution Width 17.4 % (13.2-15.2)
[2018-09-21] MEDS: DUONEB *Not for PRN Use IH SCH ×4 (05:04→19:10)
[2018-09-21 05:26] LABS: BUN/Creatinine Ratio 26; Blood Urea Nitrogen 18 mg/dL (7-17); Calcium 8.8 mg/dL (8.4-10.2); Hemolysis Index 4
[2018-09-21] MEDS: APRESOLINE PO SCH ×3 (05:43→23:48)
--- NOTE | 2018-09-21 07:31 | Hem/Onc Progress Note ---
Assessment and Plan #. Bilateral posterior tibial and peroneal vein deep venous thrombosis, left leg edema. Arixtra was being used. - back on same #. h/o Thrombocytopenia. The patient was on heparin-based treatment. Later fondaparinux. HIT negative, plt now better #. Anemia. At admission, hemoglobin was normal. The patient received blood transfusion. deficiency workup low iron - Ferritin - b12 - folate normal . There may be a bleeding component. s/p Iv iron trial #. Pulmonary embolism study is negative. #. h/o Camryn infection. #. Chronic obstructive pulmonary disease. #. History of renal failure. Nephrology following. #. Respiratory failure, on ventilator. History of cardiomyopathy. - s/p trach 09/21 - pt on arixtra for leg dvt. candidate for IVC filter eval as pt has been anemic needing transfusion peg tube pending trach+ in isolation for C diff - Patient Problems (1) Thrombocytopenia Current Visit: Yes Status: Acute (2) DVT (deep venous thrombosis) Current Visit: Yes Status: Acute (3) Anemia Current Visit: Yes Status: Acute Subjective Date of service: 09/21/18 Principal diagnosis: anemia - DVT Interval history: due PEG tube in isolation for C diff Objective - Constitutional Vitals: Last Vital Signs Temp 99.8 F H 09/21/18 04:00 Pulse 75 09/21/18 05:43 Resp 22 09/21/18 05:30 BP 147/66 09/21/18 05:43 Pulse Ox 99 09/21/18 05:30 General appearance: no acute distress Performance status: 4-completely disabled - EENT ENT: other (trach + - NGT +) Lymph node exam: negative cervical - Respiratory Respiratory effort: Positive: normal Respiratory: bilateral: diminished - Cardiovascular Heart Sounds: Present: S1 & S2 Extremities: No edema - Gastrointestinal General gastrointestinal: Present: soft, non-tender Rectal Exam: deferred - Genitourinary Female genitourinary: Present: deferred - Integumentary Integumentary: warm - Musculoskeletal Musculoskeletal: generalized weakness - Labs Lab Results: Laboratory Results - last 24 hr 09/20/18 09/20/18 09/20/18 11:26 13:51 16:10 WBC RBC Hgb Hct MCV MCH MCHC RDW Plt Count Lymph % (Auto) Custer % (Auto) Eos % (Auto) Baso % (Auto) Lymph # Custer # Eos # Baso # Seg Neutrophils % Seg Neutrophils # Sodium Potassium Chloride Carbon Dioxide Anion Gap BUN Creatinine Estimated GFR BUN/Creatinine Ratio Glucose POC Glucose 163 H Calcium Urine Color Straw Urine Turbidity Clear Urine pH 9.0 H Ur Specific [place]hton 1.006 Urine Protein <15 mg/dl Urine Glucose (UA) Neg Urine Ketones Neg Urine Blood Lg Urine Nitrite Neg Urine Bilirubin Neg Urine Urobilinogen < 2.0 Ur Leukocyte Esterase Neg Urine WBC (Auto) 4.0 Urine RBC (Auto) > 182.0 Urine Bacteria (Auto) 1+ Urine Mucus Few C. difficile Tox (PCR) Negative 09/20/18 09/21/18 09/21/18 23:50 04:35 04:35 WBC 5.7 RBC 2.67 L Hgb 8.3 L Hct 25.1 L MCV 94 MCH 31 MCHC 33 RDW 17.4 H Plt Count 213 Lymph % (Auto) 20.7 C[place] % (Auto) 10.0 H Eos % (Auto) 0.0 Baso % (Auto) 0.3 Lymph # 1.2 Custer # 0.6 Eos # 0.0 Baso # 0.0 Seg Neutrophils % 69.0 Seg Neutrophils # 3.9 Sodium 139 Potassium 4.0 D Chloride 106.0 Carbon Dioxide 21 L Anion Gap 16 BUN 18 H Creatinine 0.7 Estimated GFR > 60 BUN/Creatinine Ratio 26 Glucose 106 H POC Glucose 119 H Calcium 8.8 Urine Color Urine Turbidity Urine pH Ur Specific [place] Urine Protein Urine Glucose (UA) Urine Ketones Urine Blood Urine Nitrite Urine Bilirubin Urine Urobilinogen Ur Leukocyte Esterase Urine WBC (Auto) Urine RBC (Auto) Urine Bacteria (Auto) Urine Mucus C. difficile Tox (PCR) Medications & Allergies - Medications Allergies/Adverse Reactions: Allergies No Known Allergies Allergy (Unverified 08/15/18 16:49) Home Medications: Home Medications Medication Instructions Recorded Confirmed Last Taken Type Carvedilol 6.25 mg PO BID 08/15/18 08/15/18 Unknown History DULoxetine 60 mg PO QDAY 08/15/18 08/15/18 Unknown History Gabapentin 600 mg PO Q6HR PRN 08/15/18 08/15/18 Unknown History Methylphenidate 5 mg PO TID 08/15/18 08/15/18 Unknown History Morphabond ER 60 mg PO Q12HR 08/15/18 08/15/18 Unknown History Pravastatin Sodium 10 mg PO QDAY 08/15/18 08/15/18 Unknown History Tizanidine HCl 4 mg PO Q12HR 08/15/18 08/15/18 Unknown History oxyCODONE /ACETAMINOPHEN 7.5 - 325 mg PO Q8HR 08/15/18 08/15/18 Unknown History ALBUTEROL Inhaler(NF) 90 mcg IH TID 08/29/18 08/29/18 Unknown History Omeprazole-Bicarb 40-1,100 Cap 40 mg PO DAILY 08/29/18 08/29/18 Unknown History Active Medications: Generic Name Dose Route Start Last Admin Trade Name Freq PRN Reason Stop Dose Admin Acetaminophen 650 mg 08/15/18 22:12 09/18/18 00:26 Tylenol PO 650 mg Q4H PRN Administration Pain MILD(1-3)/Fever >100.5/MONDRAGON Albuterol 2.5 mg 08/17/18 17:00 Proventil IH Q3HRT PRN Shortness Of Breath Albuterol/Ipratropium 1 ampul 08/20/18 14:00 09/21/18 05:04 Duoneb *Not For Prn Use* IH Not Given Q6HRT LAMAR Lipase/Protease/Amylase 1 each 09/17/18 09:06 Pancresam Elizabeth 10,500 Unit FEEDTUBE PRN PRN For Clogged Feeding Tube Arformoterol Tartrate 15 mcg 08/18/18 20:00 09/20/18 19:35 Brovana Nebu IH 15 mcg Q12HRT LAMAR Administration Budesonide 0.5 mg 08/18/18 20:00 09/20/18 19:35 Pulmicort IH 0.5 mg Q12HRT LAMAR Administration Carvedilol 3.125 mg 09/20/18 10:00 09/20/18 22:32 Coreg PO 3.125 mg BID LAMAR Administration Clonidine HCl 0.2 mg 09/25/18 10:00 Catapres-Tts Patch TD Pearson LAMAR Famotidine 20 mg 09/05/18 10:00 09/20/18 22:34 Pepcid PO 20 mg BID LAMAR Administration Fondaparinux 7.5 mg 09/07/18 10:00 09/20/18 11:38 Arixtra SUB-Q 7.5 mg DAILY LAMAR Administration Furosemide 20 mg 09/18/18 12:00 09/20/18 11:12 Lasix IV 20 mg QDAY LAMAR Administration Hydralazine HCl 10 mg 08/19/18 13:59 09/19/18 02:27 Apresoline IV 10 mg Q3H PRN Administration Hydralazine HCl 25 mg 09/01/18 14:00 09/21/18 05:43 Apresoline PO 25 mg Q8HR LAMAR Administration Hydromorphone HCl 2 mg 09/06/18 12:00 09/21/18 05:44 Dilaudid PO 2 mg Q6HR LAMAR Administration Hydrophilic Ointment 1 applic 08/15/18 21:55 09/01/18 09:07 Vaseline Lip Therapy TP 1 applic Q2HR PRN Administration Dry Lips Fentanyl Citrate 2,000 mcg in 100 mls @ 4.765 mls/hr 09/02/18 11:00 09/16/18 07:40 Fentanyl Drip Premix IV Infused TITR [facility] Titration Protocol 1 MCG/KG/HR Insulin Human Lispro 0 unit 09/04/18 18:00 09/21/18 05:52 Humalog SUB-Q Not Given Q6HR [facility] Protocol Metoclopramide HCl 5 mg 08/15/18 22:50 09/17/18 10:48 Reglan IV 5 mg Q6H PRN Administration Nausea And Vomiting Midazolam HCl 1 mg 09/07/18 09:23 09/19/18 03:01 Versed IV 1 mg Q4H PRN Administration AGITATION Ondansetron HCl 4 mg 08/15/18 22:12 08/31/18 17:52 Zofran IV 4 mg Q8H PRN Administration Nausea And Vomiting Potassium Chloride 40 meq 09/20/18 22:00 09/20/18 22:34 Potassium Chloride PO 40 meq QDAY@2200 LAMAR Administration Quetiapine Fumarate 100 mg 09/19/18 22:00 09/20/18 22:33 Seroquel PO 100 mg BID LAMAR Administration Quetiapine Fumarate 100 mg 09/19/18 22:00 09/20/18 22:33 Seroquel PO 100 mg QHS LAMAR Administration Simple Syrup 15 ml 09/17/18 09:06 Simple Syrup FEEDTUBE PRN PRN Hypoglycemia Simple Syrup 30 ml 09/17/18 09:06 Simple Syrup FEEDTUBE PRN PRN Hypoglycemia Sodium Bicarbonate 325 mg 04/20/19 09:06 Sodium Bicarbonate FEEDTUBE PRN PRN For Clogged Feeding Tube Sodium Chloride 10 ml 08/15/18 22:12 09/17/18 21:51 Sodium Chloride Flush Syringe 10 Ml IV 10 ml PRN PRN Administration LINE FLUSH Vancomycin HCl 125 mg 09/20/18 12:00 09/21/18 05:46 Vancomycin Po PO 125 mg Q6HR LAMAR Administration
[2018-09-21] MEDS: PULMICORT IH SCH ×2 (08:34→19:10)
[2018-09-21] MEDS: BROVANA NEBU IH SCH ×2 (08:34→19:10)
[2018-09-21] MEDS: COREG PO SCH ×2 (10:00→21:50)
[2018-09-21] MEDS: PEPCID PO SCH ×2 (10:00→21:50)
[2018-09-21] MEDS: LASIX IV SCH (10:45)
[2018-09-21] MEDS ORDERED: NACL 0.9% 500 ML IR ONE (12:08)
[2018-09-21] MEDS ORDERED: NACL 0.9% 500 ML 500 ML ONE (12:09)
[2018-09-21] MEDS ORDERED: XYLOCAINE 2% INFILTRATI ONE (12:09)
[2018-09-21] MEDS ORDERED: ANCEF/STERILE WATER 2 GM/20 ML 2 GM/20 ML SYRINGE IV ONE (12:20)
[2018-09-21] MEDS ORDERED: GLUCAGEN IV ONE (12:30)
[2018-09-21] MEDS ORDERED: DIPRIVAN 10 MG/ML 1,000 MG/100 ML BOTTLE IV ONE (12:33)
--- NOTE | 2018-09-21 12:36 | Progress Note ---
Assessment and Plan /Acute hypoxic hypercapnic respiratory failure; extubated 08/29/18 Re Intubated 09/02/18, vent dependent s/p trach on 09/14/18 Status post bronchoscopy, BAL negative cont nebulizers, pulmonary following /Dysphagia - cannot be placed PEG as could not be transilluminated stomach on EGD - Now planned to get PEG done by IR today, cont TF with dobhoff /Hypokalemia, cont to replete, normal Mg level, likely from diarrhea /Sepsis; new fever 102.6 on 09/18. Initially treated for aspiration pneumonia and Camryn glabrata fungemia; s/p micafungin, meropenem and Vanco per ID. treated for possible C.def with vancomycin po, C.def negative. monitor off abx now / Recent Camryn glabrata fungemia: treated /Thrombocytopenia: Platelet count is Stable Lovenox changed to Arixtra /Anemia: s/p transfusion[4 PRBC] Stool for occult blood x 2 negative, hematology following -Recent EGD at [facility] 08/08/2018 revealing irregular Z line, gastritis and small hiatal hernia - Recent colonoscopy at [facility] 08/08/2018 revealing sigmoid polyp, transverse colon polyps, inflamed hemorrhoids and diverticulosis /Hypomagnesemia; Hypernatremia; resolved, /Bileral lower extremity DVT; anticoagulation with arixtra CTA chest negative for PE /Hypertension; continue current antihypertensives /Severe malnutrition/hypoalbuminemia; Dietitian following, On TF /Acute kidney injury; probably secondary to ATN, Resolved, /Acute systolic congestive heart failure; EF 25-30%, Cardio following, monitor ins/os Previous echo 03/30/2016 at [facility] revealed normal LVEF Previous stress MPI 03/29/2016 at [facility] revealed no ischemia /Elevated Transaminases; resolved /-DVT prophylaxis; on full dose arixtra, Consults and recommendations noted and appreciated Plan of care reviewed with the patient's nurse and family The high probability of a clinically significant, sudden or life threatening deterioration of the [respiratory, cardiology, ID, renal and metabolic] system(s) required my full and direct attention, intervention and personal management. The aggregate critical care time was [32] minutes. This time is in addition to time spent performing reported procedures but includes the following: [x] Data Review and interpretation [x] Patient assessment and monitoring of vital signs [x] Documentation [x] Medication orders and management Disposition: Plan to d/c to LTAC after PEG. Brief History: 68-year-old female patient with history of COPD, arthritis s/p C-spine and lumbar spine surgery, Chronic pain syndrome who was found unconscious in her feces and vomitus, patients family was in [place] for a golf tournament. Patient was brought to the emergency room noted to be severely hypoxic and tachypneic, promptly intubated placed on ventilatory support and admitted to ICU patient was also noted to have possible aspiration pneumonia, completed treatment recommended by ID .currently monitoring of antibiotics . patient also had acute gastroenteritis acute kidney injury nonspecific elevation of troponins as well as septic shock evaluated by multiple specialties successfully weaned and extubated on 08/29/2018 however patient again went into acute respiratory failure requiring reintubation on 09/02/2018, Since then patient is vent dependent, planned for trach and PEG and placement. She is also being treated for acute b/l DVT diagnosed following admission while she was on DVT Px. s/p 4units of PRBC transfusion for anemia, no acute source of active bleeding so far. planned to d/c to LTAC Work up so far: CT abdomen/pelvis CTA chest Head CT 2d echo Renal US CXRs abdominal xrys Hospitalist Physical General appearance: Present: no acute distress, well-nourished, obese, other (on vent with trach) - EENT Eyes: Present: PERRL, EOM intact - Neck Neck: Present: supple, trach on place - Respiratory Respiratory effort: normal Respiratory: bilateral: diminished, rhonchi, negative: rales, wheezing - Cardiovascular Rhythm: regular Heart Sounds: Present: S1 & S2 - Extremities Extremities: no ischemia, No edema - Abdominal General gastrointestinal: soft, non-tender, non-distended, normal bowel sounds - Integumentary Integumentary: Present: clear, warm - Psychiatric Psychiatric: cooperative, other (on vent) - Neurologic Neurologic: move extremities unpurposefull Subjective Date of service: 09/21/18 Principal diagnosis: anemia - DVT Interval history: Patient seen and examined medical records reviewed Patient on ventilator support with trach Alert and awake not in acute distress Vital signs noted, planned for PEG today Objective - Constitutional Vitals: Vital Signs - 12hr 09/21/18 09/21/18 09/21/18 01:00 01:30 02:00 Temperature Pulse Rate 85 83 77 Pulse Rate [ 82 Anterior Bilateral Throughout] Pulse Rate [ 82 Anterior Bilateral] Pulse Rate [ From Monitor] Respiratory 30 H 30 H 25 H Rate Respiratory 24 Rate [Anterior Bilateral Throughout] Respiratory 24 Rate [Anterior Bilateral] Respiratory Rate [ Generalized] Blood Pressure 134/71 134/67 138/60 O2 Sat by Pulse 95 95 96 Oximetry 09/21/18 09/21/18 09/21/18 02:30 03:00 03:30 Temperature Pulse Rate 81 81 80 Pulse Rate [ Anterior Bilateral Throughout] Pulse Rate [ Anterior Bilateral] Pulse Rate [ From Monitor] Respiratory 28 H 26 H 30 H Rate Respiratory Rate [Anterior Bilateral Throughout] Respiratory Rate [Anterior Bilateral] Respiratory Rate [ Generalized] Blood Pressure 135/67 129/70 132/66 O2 Sat by Pulse 95 95 95 Oximetry 09/21/18 09/21/18 09/21/18 04:00 04:30 05:00 Temperature 99.8 F H Pulse Rate 70 75 74 Pulse Rate [ Anterior Bilateral Throughout] Pulse Rate [ Anterior Bilateral] Pulse Rate [ 84 From Monitor] Respiratory 30 H 20 28 H Rate Respiratory Rate [Anterior Bilateral Throughout] Respiratory Rate [Anterior Bilateral] Respiratory Rate [ Generalized] Blood Pressure 131/57 143/73 131/57 O2 Sat by Pulse 98 95 98 Oximetry 09/21/18 09/21/18 09/21/18 05:30 05:43 06:00 Temperature Pulse Rate 76 75 77 Pulse Rate [ Anterior Bilateral Throughout] Pulse Rate [ Anterior Bilateral] Pulse Rate [ From Monitor] Respiratory 22 24 Rate Respiratory Rate [Anterior Bilateral Throughout] Respiratory Rate [Anterior Bilateral] Respiratory Rate [ Generalized] Blood Pressure 147/66 147/66 149/65 O2 Sat by Pulse 99 99 Oximetry 09/21/18 09/21/18 09/21/18 06:30 07:00 07:30 Temperature Pulse Rate 76 79 77 Pulse Rate [ Anterior Bilateral Throughout] Pulse Rate [ Anterior Bilateral] Pulse Rate [ From Monitor] Respiratory 24 19 22 Rate Respiratory Rate [Anterior Bilateral Throughout] Respiratory Rate [Anterior Bilateral] Respiratory Rate [ Generalized] Blood Pressure 149/65 149/65 167/56 O2 Sat by Pulse 99 97 97 Oximetry 09/21/18 09/21/18 09/21/18 08:00 08:29 08:30 Temperature 99.6 F Pulse Rate 65 75 74 Pulse Rate [ Anterior Bilateral Throughout] Pulse Rate [ Anterior Bilateral] Pulse Rate [ 75 From Monitor] Respiratory 22 21 Rate Respiratory Rate [Anterior Bilateral Throughout] Respiratory Rate [Anterior Bilateral] Respiratory 24 Rate [ Generalized] Blood Pressure 135/51 135/61 135/61 O2 Sat by Pulse 98 98 98 Oximetry 09/21/18 09/21/18 09/21/18 08:32 08:35 08:47 Temperature Pulse Rate 75 Pulse Rate [ 73 Anterior Bilateral Throughout] Pulse Rate [ 76 73 Anterior Bilateral] Pulse Rate [ From Monitor] Respiratory 29 H Rate Respiratory 25 H Rate [Anterior Bilateral Throughout] Respiratory 28 H 25 H Rate [Anterior Bilateral] Respiratory Rate [ Generalized] Blood Pressure 135/61 O2 Sat by Pulse 97 Oximetry 09/21/18 09/21/18 09/21/18 09:00 09:30 10:00 Temperature Pulse Rate 80 80 80 Pulse Rate [ Anterior Bilateral Throughout] Pulse Rate [ Anterior Bilateral] Pulse Rate [ From Monitor] Respiratory 19 25 H 17 Rate Respiratory Rate [Anterior Bilateral Throughout] Respiratory Rate [Anterior Bilateral] Respiratory Rate [ Generalized] Blood Pressure 135/61 140/58 134/62 O2 Sat by Pulse 96 98 96 Oximetry 09/21/18 09/21/18 09/21/18 10:30 11:00 12:00 Temperature 98.9 F Pulse Rate 75 75 Pulse Rate [ Anterior Bilateral Throughout] Pulse Rate [ Anterior Bilateral] Pulse Rate [ From Monitor] Respiratory 27 H 28 H Rate Respiratory Rate [Anterior Bilateral Throughout] Respiratory Rate [Anterior Bilateral] Respiratory Rate [ Generalized] Blood Pressure 139/66 133/56 O2 Sat by Pulse 95 96 Oximetry - Labs CBC & Chem 7: 09/21/18 04:35 09/21/18 04:35 Labs: Abnormal lab results 09/20/18 09/20/18 09/21/18 Range/Units 16:10 23:50 04:35 RBC 2.67 L (3.65-5.03) M/mm3 Hgb 8.3 L (10.1-14.3) gm/dl Hct 25.1 L (30.3-42.9) % RDW 17.4 H (13.2-15.2) % Gordon % (Auto) 10.0 H (0.0-7.3) % Carbon Dioxide (22-30) mmol/L BUN (7-17) mg/dL Glucose (65-100) mg/dL POC Glucose 119 H (70-105) Urine pH 9.0 H (5.0-7.0) 09/21/18 09/21/18 Range/Units 04:35 11:30 RBC (3.65-5.03) M/mm3 Hgb (10.1-14.3) gm/dl Hct (30.3-42.9) % RDW (13.2-15.2) % Gordon % (Auto) (0.0-7.3) % Carbon Dioxide 21 L (22-30) mmol/L BUN 18 H (7-17) mg/dL Glucose 106 H (65-100) mg/dL POC Glucose 110 H (70-105) Urine pH (5.0-7.0)
--- NOTE | 2018-09-21 12:45 | Progress Note ---
Assessment and Plan Acute hypoxic-hypercapnic respiratory failure on MVS Acute COPD exacerbation DVT NSTEMI Acute encephalopathy (toxic-metabolic) Thrombocytopenia Hypokalemia Acute kidney injury h/o Chronic Narcotic Dependence Aspiration pneumonia/CAP Hypokalemia GNR in tracheal aspirate Hypernatremia - PEG placement once anesthesia available - s/p Midline placement - keep set rate on MVS to 12/min - continue lasix at 20 mg IV daily (diamox dosing completed) - continue daily SAT's & SBT's - continue prn analgesia - Continue to Wean supplemental oxygen to keep O2 sats > 90% - follow clinically s/p AB's courses - continue accuchecks q6h and target glycemic control for BG 140 - 180 mg/dl acutely - continue seroquel slow taper while following clinically - CD4 count WNL - HIT assay negative but again developed thrombocytopenia with re-challenge so on Arixtra treatment dose for DVT - nephrology input appreciated - cardiology input appreciated - continue brovana & pulmicort re: COPD - continue lung protective strategies - Daily ABGs/CXR for now - VAP bundle addressed - continue to avoid benzodiazepines, use high dose fentanyl for agitation and analgesia - continue stress ulcer prophylaxis - continue VTE prophylaxis - continue enteral Nutrition as tolerated - VAP bundle addressed - Continue bronchodilators with pulmonary hygiene per RT - Maintenance of sleep -wake cycle - Mobility protocol for pressure ulcer prophylaxis as tolerated by hemodynamics - Influenza and pneumonia vaccination per protocol .... her not in room today at time of my examination ... re-evaluate in am & prn PROGNOSIS :FAIR CONDITION: CRITICAL CODE STATUS: FULL CODE The high probability of a clinically significant, sudden or life-threatening deterioration of the [respiratory, neurology, renal] system(s) required my full and direct attention, intervention and personal management. The aggregate critical care time was [31] minutes without overlap. Time includes spent on; [x] Data Review and interpretation [x] Patient assessment and monitoring of vital signs [x] Documentation [x] Medication orders and management Subjective Date of service: 09/21/18 Principal diagnosis: Acute hypoxemic hypercapnic Resp failure; AE-COPD; Acute kidney injury Interval history: Patient is seen today for: Acute hypoxemic - hypercapnic respiratory failure on MVS; Acute COPD exacerbation; Acute encephalopathy (toxic-metabolic); Hypokalemia; Acute kidney injury Seen and examined at bedside; 24hour events reviewed; nursing and respiratory care staff consulted; no adverse overnight events reported to me; remains on M VS; still awaiting PEG; tolerating SBT meanwhile; No emesis or overt aspiration; alkalosis better Objective Vital Signs - 12hr 09/21/18 09/21/18 09/21/18 01:00 01:30 02:00 Temperature Pulse Rate 85 83 77 Pulse Rate [ 82 Anterior Bilateral Throughout] Pulse Rate [ 82 Anterior Bilateral] Pulse Rate [ From Monitor] Respiratory 30 H 30 H 25 H Rate Respiratory 24 Rate [Anterior Bilateral Throughout] Respiratory 24 Rate [Anterior Bilateral] Respiratory Rate [ Generalized] Blood Pressure 134/71 134/67 138/60 O2 Sat by Pulse 95 95 96 Oximetry 09/21/18 09/21/18 09/21/18 02:30 03:00 03:30 Temperature Pulse Rate 81 81 80 Pulse Rate [ Anterior Bilateral Throughout] Pulse Rate [ Anterior Bilateral] Pulse Rate [ From Monitor] Respiratory 28 H 26 H 30 H Rate Respiratory Rate [Anterior Bilateral Throughout] Respiratory Rate [Anterior Bilateral] Respiratory Rate [ Generalized] Blood Pressure 135/67 129/70 132/66 O2 Sat by Pulse 95 95 95 Oximetry 09/21/18 09/21/18 09/21/18 04:00 04:30 05:00 Temperature 99.8 F H Pulse Rate 70 75 74 Pulse Rate [ Anterior Bilateral Throughout] Pulse Rate [ Anterior Bilateral] Pulse Rate [ 84 From Monitor] Respiratory 30 H 20 28 H Rate Respiratory Rate [Anterior Bilateral Throughout] Respiratory Rate [Anterior Bilateral] Respiratory Rate [ Generalized] Blood Pressure 131/57 143/73 131/57 O2 Sat by Pulse 98 95 98 Oximetry 09/21/18 09/21/18 09/21/18 05:30 05:43 06:00 Temperature Pulse Rate 76 75 77 Pulse Rate [ Anterior Bilateral Throughout] Pulse Rate [ Anterior Bilateral] Pulse Rate [ From Monitor] Respiratory 22 24 Rate Respiratory Rate [Anterior Bilateral Throughout] Respiratory Rate [Anterior Bilateral] Respiratory Rate [ Generalized] Blood Pressure 147/66 147/66 149/65 O2 Sat by Pulse 99 99 Oximetry 09/21/18 09/21/18 09/21/18 06:30 07:00 07:30 Temperature Pulse Rate 76 79 77 Pulse Rate [ Anterior Bilateral Throughout] Pulse Rate [ Anterior Bilateral] Pulse Rate [ From Monitor] Respiratory 24 19 22 Rate Respiratory Rate [Anterior Bilateral Throughout] Respiratory Rate [Anterior Bilateral] Respiratory Rate [ Generalized] Blood Pressure 149/65 149/65 167/56 O2 Sat by Pulse 99 97 97 Oximetry 09/21/18 09/21/18 09/21/18 08:00 08:29 08:30 Temperature 99.6 F Pulse Rate 65 75 74 Pulse Rate [ Anterior Bilateral Throughout] Pulse Rate [ Anterior Bilateral] Pulse Rate [ 75 From Monitor] Respiratory 22 21 Rate Respiratory Rate [Anterior Bilateral Throughout] Respiratory Rate [Anterior Bilateral] Respiratory 24 Rate [ Generalized] Blood Pressure 135/51 135/61 135/61 O2 Sat by Pulse 98 98 98 Oximetry 09/21/18 09/21/18 09/21/18 08:32 08:35 08:47 Temperature Pulse Rate 75 Pulse Rate [ 73 Anterior Bilateral Throughout] Pulse Rate [ 76 73 Anterior Bilateral] Pulse Rate [ From Monitor] Respiratory 29 H Rate Respiratory 25 H Rate [Anterior Bilateral Throughout] Respiratory 28 H 25 H Rate [Anterior Bilateral] Respiratory Rate [ Generalized] Blood Pressure 135/61 O2 Sat by Pulse 97 Oximetry 09/21/18 09/21/18 09/21/18 09:00 09:30 10:00 Temperature Pulse Rate 80 80 80 Pulse Rate [ Anterior Bilateral Throughout] Pulse Rate [ Anterior Bilateral] Pulse Rate [ From Monitor] Respiratory 19 25 H 17 Rate Respiratory Rate [Anterior Bilateral Throughout] Respiratory Rate [Anterior Bilateral] Respiratory Rate [ Generalized] Blood Pressure 135/61 140/58 134/62 O2 Sat by Pulse 96 98 96 Oximetry 09/21/18 09/21/18 09/21/18 10:30 11:00 12:00 Temperature 98.9 F Pulse Rate 75 75 Pulse Rate [ Anterior Bilateral Throughout] Pulse Rate [ Anterior Bilateral] Pulse Rate [ From Monitor] Respiratory 27 H 28 H Rate Respiratory Rate [Anterior Bilateral Throughout] Respiratory Rate [Anterior Bilateral] Respiratory Rate [ Generalized] Blood Pressure 139/66 133/56 O2 Sat by Pulse 95 96 Oximetry Constitutional: appears uncomfortable, other (elderly looking CF, normocephalic and atraumatic) Eyes: non-icteric ENT: oropharynx moist, other (s/p tracheostomy) Neck: supple, no lymphadenopathy, no JVD, other (no thyromegaly) Effort: mildly labored Ascultation: Bilateral: diminished breath sounds, rhonchi (improved) Percussion: Bilateral: not dull Cardiovascular: regular rate and rhythm Gastrointestinal: normoactive bowel sounds, soft, non-tender, non-distended Integumentary: normal Extremities: no cyanosis, no ischemia or petechiae, edema (Left lower extremity) Neurologic: non-focal exam (grossly), pupils equal and round, CN II-XII normal, motor strength normal and, other (lethargic) Psychiatric: other (unable to assess) CBC and BMP: 09/24/18 03:41 09/24/18 03:41 ABG, PT/INR, D-dimer: ABG POC ABG pH 7.437 (7.35-7.45) 09/20/18 05:15 POC ABG pCO2 33.6 (35-45) L 09/20/18 05:15 POC ABG pO2 56 (80-105) L 09/20/18 05:15 POC ABG HCO3 22.6 (22-26 mml/L) 09/20/18 05:15 POC ABG Total CO2 24 (23-27mmol/L) 09/20/18 05:15 POC ABG O2 Sat 90 09/20/18 05:15 PT/INR, D-dimer PT 14.2 Sec. (12.2-14.9) 09/14/18 04:55 INR 1.04 (0.87-1.13) 09/14/18 04:55 D-Dimer 2768.33 ng/mlDDU (0-234) H 08/15/18 18:31 Abnormal lab findings: Abnormal Labs 08/15/18 08/15/18 08/15/18 17:52 17:52 17:52 WBC 12.7 H RBC 3.25 L Hgb Hct RDW Plt Count Lymph % (Auto) [place] % (Auto) Lymph # [place] # Seg Neutrophils % Seg Neuts % (Manual) Lymphocytes % (Manual) 6.0 L Nucleated RBC % Seg Neutrophils # Seg Neutrophils # Man Lymphocytes # (Manual) 0.8 L D-Dimer POC ABG pH POC ABG pCO2 POC ABG pO2 VBG pH Sodium Potassium 3.4 L Chloride 94.6 L Carbon Dioxide 17 L BUN 67 H Creatinine 3.5 H Glucose 131 H POC Glucose Hemoglobin A1c Lactic Acid 5.20 H* Calcium 7.6 L Phosphorus Magnesium Iron TIBC AST 887 H ALT 316 H Troponin T C-Reactive Protein Total Protein Albumin 3.1 L Triglycerides LDL Cholesterol Direct HDL Cholesterol Urine pH Urine WBC (Auto) Vancomycin Trough Salicylates Acetaminophen % CD3 Cells % CD19 Cells Absolute CD19 Count Miscellaneous Test Crossmatch 08/15/18 08/15/18 08/15/18 18:11 18:19 18:31 WBC RBC Hgb Hct RDW Plt Count Lymph % (Auto) [place] % (Auto) Lymph # [place] # Seg Neutrophils % Seg Neuts % (Manual) Lymphocytes % (Manual) Nucleated RBC % Seg Neutrophils # Seg Neutrophils # Man Lymphocytes # (Manual) D-Dimer 2768.33 H POC ABG pH 7.173 L POC ABG pCO2 47.8 H POC ABG pO2 177 H VBG pH 7.187 L* Sodium Potassium Chloride Carbon Dioxide BUN Creatinine Glucose POC Glucose Hemoglobin A1c Lactic Acid Calcium Phosphorus Magnesium Iron TIBC AST ALT Troponin T C-Reactive Protein Total Protein Albumin Triglycerides LDL Cholesterol Direct HDL Cholesterol Urine pH Urine WBC (Auto) Vancomycin Trough Salicylates Acetaminophen % CD3 Cells % CD19 Cells Absolute CD19 Count Miscellaneous Test Crossmatch 08/15/18 08/15/18 08/15/18 18:31 19:14 19:14 WBC RBC Hgb Hct RDW Plt Count Lymph % (Auto) [place] % (Auto) Lymph # [place] # Seg Neutrophils % Seg Neuts % (Manual) Lymphocytes % (Manual) Nucleated RBC % Seg Neutrophils # Seg Neutrophils # Man Lymphocytes # (Manual) D-Dimer POC ABG pH POC ABG pCO2 POC ABG pO2 VBG pH Sodium Potassium Chloride Carbon Dioxide BUN Creatinine Glucose POC Glucose Hemoglobin A1c Lactic Acid 2.70 H* Calcium Phosphorus Magnesium Iron TIBC AST ALT Troponin T 0.454 H* C-Reactive Protein Total Protein Albumin Triglycerides 356 H LDL Cholesterol Direct 4 L HDL Cholesterol 10 L Urine pH Urine WBC (Auto) Vancomycin Trough Salicylates < 0.3 L Acetaminophen % CD3 Cells % CD19 Cells Absolute CD19 Count Miscellaneous Test Crossmatch 08/15/18 08/15/18 08/15/18 19:14 19:15 23:09 WBC RBC Hgb Hct RDW Plt Count Lymph % (Auto) [place] % (Auto) Lymph # [place] # Seg Neutrophils % Seg Neuts % (Manual) Lymphocytes % (Manual) Nucleated RBC % Seg Neutrophils # Seg Neutrophils # Man Lymphocytes # (Manual) D-Dimer POC ABG pH POC ABG pCO2 POC ABG pO2 VBG pH Sodium Potassium Chloride Carbon Dioxide BUN Creatinine Glucose POC Glucose Hemoglobin A1c Lactic Acid 3.20 H* Calcium Phosphorus Magnesium Iron TIBC AST ALT Troponin T C-Reactive Protein Total Protein Albumin Triglycerides LDL Cholesterol Direct HDL Cholesterol Urine pH Urine WBC (Auto) 17.0 H Vancomycin Trough Salicylates Acetaminophen < 5.0 L % CD3 Cells % CD19 Cells Absolute CD19 Count Miscellaneous Test Crossmatch 08/15/18 08/16/18 08/16/18 23:09 01:41 05:38 WBC RBC 3.07 L Hgb 9.8 L Hct 28.7 L RDW Plt Count Lymph % (Auto) [place] % (Auto) Lymph # [place] # Seg Neutrophils % Seg Neuts % (Manual) 84.0 H Lymphocytes % (Manual) 6.0 L Nucleated RBC % 4.0 H Seg Neutrophils # Seg Neutrophils # Man Lymphocytes # (Manual) 0.5 L D-Dimer POC ABG pH 7.323 L POC ABG pCO2 34.7 L POC ABG pO2 78 L VBG pH Sodium Potassium Chloride Carbon Dioxide BUN Creatinine Glucose POC Glucose Hemoglobin A1c 6.4 H Lactic Acid Calcium Phosphorus Magnesium Iron TIBC AST ALT Troponin T C-Reactive Protein Total Protein Albumin Triglycerides LDL Cholesterol Direct HDL Cholesterol Urine pH Urine WBC (Auto) Vancomycin Trough Salicylates Acetaminophen % CD3 Cells % CD19 Cells Absolute CD19 Count Miscellaneous Test Crossmatch 08/16/18 08/16/18 08/17/18 05:38 22:43 03:42 WBC RBC Hgb Hct RDW Plt Count Lymph % (Auto) [place] % (Auto) Lymph # [place] # Seg Neutrophils % Seg Neuts % (Manual) Lymphocytes % (Manual) Nucleated RBC % Seg Neutrophils # Seg Neutrophils # Man Lymphocytes # (Manual) D-Dimer POC ABG pH POC ABG pCO2 POC ABG pO2 VBG pH Sodium Potassium 2.9 L* 3.1 L 2.9 L* Chloride 108.8 H 111.9 H Carbon Dioxide 17 L 19 L 21 L BUN 62 H 40 H 33 H Creatinine 2.0 H Glucose 139 H 145 H POC Glucose Hemoglobin A1c Lactic Acid Calcium 7.8 L 8.3 L Phosphorus 1.50 L Magnesium Iron TIBC AST 619 H ALT 353 H Troponin T C-Reactive Protein Total Protein 6.1 L Albumin 2.8 L Triglycerides LDL Cholesterol Direct HDL Cholesterol Urine pH Urine WBC (Auto) Vancomycin Trough Salicylates Acetaminophen % CD3 Cells % CD19 Cells Absolute CD19 Count Miscellaneous Test Crossmatch 08/17/18 08/17/18 08/18/18 11:02 16:42 03:28 WBC RBC Hgb Hct RDW Plt Count Lymph % (Auto) [place] % (Auto) Lymph # [place] # Seg Neutrophils % Seg Neuts % (Manual) Lymphocytes % (Manual) Nucleated RBC % Seg Neutrophils # Seg Neutrophils # Man Lymphocytes # (Manual) D-Dimer POC ABG pH 7.483 H 7.499 H POC ABG pCO2 POC ABG pO2 VBG pH Sodium 147 H Potassium 3.2 L Chloride 115.8 H Carbon Dioxide BUN 23 H Creatinine Glucose 121 H POC Glucose Hemoglobin A1c Lactic Acid Calcium 8.1 L Phosphorus 2.30 L D Magnesium Iron TIBC AST ALT Troponin T C-Reactive Protein Total Protein Albumin Triglycerides LDL Cholesterol Direct HDL Cholesterol Urine pH Urine WBC (Auto) Vancomycin Trough Salicylates Acetaminophen % CD3 Cells % CD19 Cells Absolute CD19 Count Miscellaneous Test Crossmatch 08/18/18 08/18/18 08/18/18 04:10 13:39 13:39 WBC RBC Hgb Hct RDW Plt Count Lymph % (Auto) [place] % (Auto) Lymph # [place] # Seg Neutrophils % Seg Neuts % (Manual) Lymphocytes % (Manual) Nucleated RBC % Seg Neutrophils # Seg Neutrophils # Man Lymphocytes # (Manual) D-Dimer POC ABG pH POC ABG pCO2 POC ABG pO2 VBG pH Sodium 147 H Potassium 3.3 L Chloride 111.9 H Carbon Dioxide BUN 21 H Creatinine Glucose 113 H POC Glucose Hemoglobin A1c Lactic Acid Calcium Phosphorus 1.50 L D Magnesium Iron TIBC AST ALT Troponin T 0.317 H* D C-Reactive Protein 10.70 H Total Protein Albumin Triglycerides LDL Cholesterol Direct HDL Cholesterol Urine pH Urine WBC (Auto) Vancomycin Trough Salicylates Acetaminophen % CD3 Cells % CD19 Cells Absolute CD19 Count Miscellaneous Test Crossmatch 08/18/18 08/19/18 08/19/18 16:51 03:47 04:15 WBC RBC Hgb Hct RDW Plt Count Lymph % (Auto) [place] % (Auto) Lymph # [place] # Seg Neutrophils % Seg Neuts % (Manual) Lymphocytes % (Manual) Nucleated RBC % Seg Neutrophils # Seg Neutrophils # Man Lymphocytes # (Manual) D-Dimer POC ABG pH 7.454 H 7.482 H POC ABG pCO2 POC ABG pO2 65 L VBG pH Sodium 154 H Potassium 3.3 L Chloride 115.1 H Carbon Dioxide BUN 19 H Creatinine Glucose 117 H POC Glucose Hemoglobin A1c Lactic Acid Calcium 7.8 L Phosphorus Magnesium Iron TIBC AST ALT Troponin T C-Reactive Protein Total Protein Albumin Triglycerides LDL Cholesterol Direct HDL Cholesterol Urine pH Urine WBC (Auto) Vancomycin Trough Salicylates Acetaminophen % CD3 Cells % CD19 Cells Absolute CD19 Count Miscellaneous Test Crossmatch 08/19/18 08/19/18 08/20/18 14:32 16:18 03:51 WBC RBC Hgb Hct RDW Plt Count Lymph % (Auto) [place] % (Auto) Lymph # [place] # Seg Neutrophils % Seg Neuts % (Manual) Lymphocytes % (Manual) Nucleated RBC % Seg Neutrophils # Seg Neutrophils # Man Lymphocytes # (Manual) D-Dimer POC ABG pH 7.483 H POC ABG pCO2 33.4 L POC ABG pO2 51 L 74 L VBG pH Sodium Potassium Chloride Carbon Dioxide BUN Creatinine Glucose POC Glucose Hemoglobin A1c Lactic Acid Calcium Phosphorus Magnesium Iron TIBC AST ALT Troponin T C-Reactive Protein Total Protein Albumin Triglycerides LDL Cholesterol Direct HDL Cholesterol Urine pH Urine WBC (Auto) Vancomycin Trough Salicylates Acetaminophen % CD3 Cells 44 L % CD19 Cells 41 H Absolute CD19 Count 1290 H Miscellaneous Test Crossmatch 08/20/18 08/21/18 08/21/18 05:25 03:54 05:45 WBC 24.1 H RBC 2.83 L Hgb 8.8 L Hct 26.7 L RDW 15.7 H Plt Count 127 L Lymph % (Auto) [place] % (Auto) Lymph # [place] # Seg Neutrophils % Seg Neuts % (Manual) 94.0 H Lymphocytes % (Manual) 4.0 L Nucleated RBC % 1.0 H Seg Neutrophils # Seg Neutrophils # Man 22.7 H Lymphocytes # (Manual) 1.0 L D-Dimer POC ABG pH POC ABG pCO2 31.9 L POC ABG pO2 66 L VBG pH Sodium 146 H D Potassium Chloride 111.2 H Carbon Dioxide BUN 24 H Creatinine Glucose 141 H POC Glucose Hemoglobin A1c Lactic Acid Calcium 8.1 L Phosphorus Magnesium Iron TIBC AST 65 H ALT 104 H Troponin T C-Reactive Protein Total Protein 6.2 L Albumin 2.6 L Triglycerides LDL Cholesterol Direct HDL Cholesterol Urine pH Urine WBC (Auto) Vancomycin Trough Salicylates Acetaminophen % CD3 Cells % CD19 Cells Absolute CD19 Count Miscellaneous Test Crossmatch 08/21/18 08/22/18 08/22/18 05:45 06:20 06:45 WBC RBC Hgb Hct RDW Plt Count Lymph % (Auto) [place] % (Auto) Lymph # [place] # Seg Neutrophils % Seg Neuts % (Manual) Lymphocytes % (Manual) Nucleated RBC % Seg Neutrophils # Seg Neutrophils # Man Lymphocytes # (Manual) D-Dimer POC ABG pH POC ABG pCO2 32.9 L POC ABG pO2 VBG pH Sodium Potassium 3.5 L Chloride 109.4 H 112.4 H Carbon Dioxide 21 L 20 L BUN 50 H 61 H Creatinine 2.0 H D 1.9 H Glucose 144 H 154 H POC Glucose Hemoglobin A1c Lactic Acid Calcium 7.6 L 7.8 L Phosphorus Magnesium Iron TIBC AST ALT Troponin T C-Reactive Protein Total Protein 5.3 L Albumin 2.1 L Triglycerides LDL Cholesterol Direct HDL Cholesterol Urine pH Urine WBC (Auto) Vancomycin Trough Salicylates Acetaminophen % CD3 Cells % CD19 Cells Absolute CD19 Count Miscellaneous Test Crossmatch 08/22/18 08/22/18 08/22/18 06:45 15:29 18:40 WBC RBC Hgb Hct RDW Plt Count Lymph % (Auto) [place] % (Auto) Lymph # [place] # Seg Neutrophils % Seg Neuts % (Manual) Lymphocytes % (Manual) Nucleated RBC % Seg Neutrophils # Seg Neutrophils # Man Lymphocytes # (Manual) D-Dimer POC ABG pH POC ABG pCO2 POC ABG pO2 VBG pH Sodium Potassium Chloride Carbon Dioxide BUN Creatinine Glucose POC Glucose 169 H Hemoglobin A1c Lactic Acid Calcium Phosphorus Magnesium Iron TIBC AST ALT Troponin T C-Reactive Protein 4.70 H Total Protein Albumin Triglycerides 197 H LDL Cholesterol Direct HDL Cholesterol Urine pH Urine WBC (Auto) Vancomycin Trough Salicylates Acetaminophen % CD3 Cells % CD19 Cells Absolute CD19 Count Miscellaneous Test Crossmatch 08/23/18 08/23/18 08/23/18 03:59 21:19 Unknown WBC 12.1 H RBC 2.29 L Hgb 7.1 L Hct 21.7 L RDW 15.7 H Plt Count 106 L Lymph % (Auto) [place] % (Auto) Lymph # [place] # Seg Neutrophils % Seg Neuts % (Manual) 92.0 H Lymphocytes % (Manual) 4.0 L Nucleated RBC % Seg Neutrophils # Seg Neutrophils # Man 11.1 H Lymphocytes # (Manual) 0.5 L D-Dimer POC ABG pH 7.306 L POC ABG pCO2 31.3 L POC ABG pO2 119 H 75 L VBG pH Sodium Potassium Chloride Carbon Dioxide BUN Creatinine Glucose POC Glucose Hemoglobin A1c Lactic Acid Calcium Phosphorus Magnesium Iron TIBC AST ALT Troponin T C-Reactive Protein Total Protein Albumin Triglycerides LDL Cholesterol Direct HDL Cholesterol Urine pH Urine WBC (Auto) Vancomycin Trough Salicylates Acetaminophen % CD3 Cells % CD19 Cells Absolute CD19 Count Miscellaneous Test Crossmatch 08/23/18 08/24/18 08/24/18 Unknown 04:18 08:30 WBC 12.8 H RBC 2.24 L Hgb 7.0 L Hct 21.1 L RDW Plt Count Lymph % (Auto) [place] % (Auto) Lymph # [place] # Seg Neutrophils % Seg Neuts % (Manual) 93.0 H Lymphocytes % (Manual) 6.0 L Nucleated RBC % Seg Neutrophils # Seg Neutrophils # Man 11.9 H Lymphocytes # (Manual) 0.8 L D-Dimer POC ABG pH POC ABG pCO2 POC ABG pO2 78 L VBG pH Sodium Potassium Chloride 115.7 H Carbon Dioxide 21 L BUN 64 H Creatinine 2.0 H Glucose 149 H POC Glucose Hemoglobin A1c Lactic Acid Calcium 7.5 L Phosphorus Magnesium Iron TIBC AST ALT Troponin T C-Reactive Protein Total Protein 4.8 L Albumin 2.0 L Triglycerides LDL Cholesterol Direct HDL Cholesterol Urine pH Urine WBC (Auto) Vancomycin Trough Salicylates Acetaminophen % CD3 Cells % CD19 Cells Absolute CD19 Count Miscellaneous Test Crossmatch 08/24/18 08/24/18 08/24/18 08:30 17:44 18:28 WBC RBC Hgb Hct RDW Plt Count Lymph % (Auto) [place] % (Auto) Lymph # [place] # Seg Neutrophils % Seg Neuts % (Manual) Lymphocytes % (Manual) Nucleated RBC % Seg Neutrophils # Seg Neutrophils # Man Lymphocytes # (Manual) D-Dimer POC ABG pH 7.474 H POC ABG pCO2 POC ABG pO2 61 L VBG pH Sodium Potassium Chloride 108.3 H Carbon Dioxide 20 L BUN 65 H Creatinine 2.0 H Glucose 167 H POC Glucose 164 H Hemoglobin A1c Lactic Acid Calcium 7.7 L Phosphorus Magnesium Iron TIBC AST ALT Troponin T C-Reactive Protein Total Protein 5.3 L Albumin 2.2 L Triglycerides LDL Cholesterol Direct HDL Cholesterol Urine pH Urine WBC (Auto) Vancomycin Trough Salicylates Acetaminophen % CD3 Cells % CD19 Cells Absolute CD19 Count Miscellaneous Test Crossmatch 08/25/18 08/25/1808/25/19 03:35 05:20 05:20 WBC RBC Hgb 6.7 L Hct 21.0 L RDW Plt Count Lymph % (Auto) [place] % (Auto) Lymph # [place] # Seg Neutrophils % Seg Neuts % (Manual) Lymphocytes % (Manual) Nucleated RBC % Seg Neutrophils # Seg Neutrophils # Man Lymphocytes # (Manual) D-Dimer POC ABG pH POC ABG pCO2 POC ABG pO2 79 L VBG pH Sodium Potassium Chloride Carbon Dioxide 21 L BUN 71 H Creatinine 3.1 H D Glucose 171 H POC Glucose Hemoglobin A1c Lactic Acid Calcium 7.5 L Phosphorus Magnesium Iron TIBC AST ALT Troponin T C-Reactive Protein Total Protein Albumin Triglycerides LDL Cholesterol Direct HDL Cholesterol Urine pH Urine WBC (Auto) Vancomycin Trough Salicylates Acetaminophen % CD3 Cells % CD19 Cells Absolute CD19 Count Miscellaneous Test Crossmatch 08/25/18 08/25/18 08/25/18 05:20 08:52 12:42 WBC RBC Hgb Hct RDW Plt Count Lymph % (Auto) [place] % (Auto) Lymph # [place] # Seg Neutrophils % Seg Neuts % (Manual) Lymphocytes % (Manual) Nucleated RBC % Seg Neutrophils # Seg Neutrophils # Man Lymphocytes # (Manual) D-Dimer POC ABG pH POC ABG pCO2 POC ABG pO2 VBG pH Sodium Potassium Chloride Carbon Dioxide BUN Creatinine Glucose POC Glucose 166 H Hemoglobin A1c Lactic Acid Calcium Phosphorus Magnesium Iron TIBC AST ALT Troponin T C-Reactive Protein 5.00 H Total Protein Albumin Triglycerides LDL Cholesterol Direct HDL Cholesterol Urine pH Urine WBC (Auto) Vancomycin Trough Salicylates Acetaminophen % CD3 Cells % CD19 Cells Absolute CD19 Count Miscellaneous Test Crossmatch See Detail 08/25/18 08/26/18 08/26/18 18:05 00:13 04:53 WBC RBC Hgb Hct RDW Plt Count Lymph % (Auto) [place] % (Auto) Lymph # [place] # Seg Neutrophils % Seg Neuts % (Manual) Lymphocytes % (Manual) Nucleated RBC % Seg Neutrophils # Seg Neutrophils # Man Lymphocytes # (Manual) D-Dimer POC ABG pH POC ABG pCO2 30.9 L POC ABG pO2 70 L VBG pH Sodium Potassium Chloride Carbon Dioxide BUN Creatinine Glucose POC Glucose 121 H 164 H Hemoglobin A1c Lactic Acid Calcium Phosphorus Magnesium Iron TIBC AST ALT Troponin T C-Reactive Protein Total Protein Albumin Triglycerides LDL Cholesterol Direct HDL Cholesterol Urine pH Urine WBC (Auto) Vancomycin Trough Salicylates Acetaminophen % CD3 Cells % CD19 Cells Absolute CD19 Count Miscellaneous Test Crossmatch 08/26/18 08/26/18 08/26/18 05:42 06:00 06:00 WBC RBC 2.62 L Hgb 7.7 L Hct 23.0 L RDW 22.0 H Plt Count Lymph % (Auto) 6.3 L [place] % (Auto) Lymph # 0.7 L [place] # Seg Neutrophils % 88.1 H Seg Neuts % (Manual) Lymphocytes % (Manual) Nucleated RBC % Seg Neutrophils # 9.6 H Seg Neutrophils # Man Lymphocytes # (Manual) D-Dimer POC ABG pH POC ABG pCO2 POC ABG pO2 VBG pH Sodium Potassium Chloride Carbon Dioxide 21 L BUN 70 H Creatinine 3.3 H Glucose 146 H POC Glucose 149 H Hemoglobin A1c Lactic Acid Calcium 8.0 L Phosphorus Magnesium Iron TIBC AST ALT Troponin T C-Reactive Protein Total Protein Albumin Triglycerides LDL Cholesterol Direct HDL Cholesterol Urine pH Urine WBC (Auto) Vancomycin Trough Salicylates Acetaminophen % CD3 Cells % CD19 Cells Absolute CD19 Count Miscellaneous Test Crossmatch 08/26/18 08/26/18 08/27/18 11:37 23:54 04:35 WBC RBC 2.50 L Hgb 7.6 L Hct 22.3 L RDW 21.8 H Plt Count Lymph % (Auto) 7.3 L [place] % (Auto) Lymph # 0.7 L [place] # Seg Neutrophils % 85.6 H Seg Neuts % (Manual) Lymphocytes % (Manual) Nucleated RBC % Seg Neutrophils # 8.6 H Seg Neutrophils # Man Lymphocytes # (Manual) D-Dimer POC ABG pH POC ABG pCO2 POC ABG pO2 VBG pH Sodium Potassium Chloride Carbon Dioxide BUN Creatinine Glucose POC Glucose 183 H 150 H Hemoglobin A1c Lactic Acid Calcium Phosphorus Magnesium Iron TIBC AST ALT Troponin T C-Reactive Protein Total Protein Albumin Triglycerides LDL Cholesterol Direct HDL Cholesterol Urine pH Urine WBC (Auto) Vancomycin Trough Salicylates Acetaminophen % CD3 Cells % CD19 Cells Absolute CD19 Count Miscellaneous Test Crossmatch 08/27/18 08/27/18 08/28/18 04:35 12:17 04:43 WBC RBC Hgb Hct RDW Plt Count Lymph % (Auto) [place] % (Auto) Lymph # [place] # Seg Neutrophils % Seg Neuts % (Manual) Lymphocytes % (Manual) Nucleated RBC % Seg Neutrophils # Seg Neutrophils # Man Lymphocytes # (Manual) D-Dimer POC ABG pH POC ABG pCO2 32.1 L 33.8 L POC ABG pO2 68 L 78 L VBG pH Sodium Potassium Chloride Carbon Dioxide 19 L BUN 67 H Creatinine 2.9 H Glucose 155 H POC Glucose Hemoglobin A1c Lactic Acid Calcium Phosphorus 4.70 H Magnesium Iron TIBC AST ALT Troponin T C-Reactive Protein Total Protein Albumin Triglycerides LDL Cholesterol Direct HDL Cholesterol Urine pH Urine WBC (Auto) Vancomycin Trough Salicylates Acetaminophen % CD3 Cells % CD19 Cells Absolute CD19 Count Miscellaneous Test Crossmatch 08/28/18 08/28/18 08/28/18 05:03 05:20 05:20 WBC RBC 2.43 L Hgb 7.4 L Hct 21.8 L RDW 20.8 H Plt Count Lymph % (Auto) 7.6 L [place] % (Auto) 8.7 H Lymph # 0.7 L [place] # Seg Neutrophils % 82.9 H Seg Neuts % (Manual) Lymphocytes % (Manual) Nucleated RBC % Seg Neutrophils # Seg Neutrophils # Man Lymphocytes # (Manual) D-Dimer POC ABG pH POC ABG pCO2 POC ABG pO2 VBG pH Sodium Potassium Chloride 107.8 H Carbon Dioxide 21 L BUN 55 H Creatinine 2.0 H Glucose 177 H POC Glucose 160 H Hemoglobin A1c Lactic Acid Calcium Phosphorus Magnesium Iron TIBC AST ALT Troponin T C-Reactive Protein Total Protein Albumin Triglycerides LDL Cholesterol Direct HDL Cholesterol Urine pH Urine WBC (Auto) Vancomycin Trough Salicylates Acetaminophen % CD3 Cells % CD19 Cells Absolute CD19 Count Miscellaneous Test Crossmatch 08/28/18 08/28/18 08/28/18 12:18 18:58 22:31 WBC RBC Hgb Hct RDW Plt Count Lymph % (Auto) [place] % (Auto) Lymph # [place] # Seg Neutrophils % Seg Neuts % (Manual) Lymphocytes % (Manual) Nucleated RBC % Seg Neutrophils # Seg Neutrophils # Man Lymphocytes # (Manual) D-Dimer POC ABG pH POC ABG pCO2 34.4 L POC ABG pO2 67 L VBG pH Sodium Potassium Chloride Carbon Dioxide BUN Creatinine Glucose POC Glucose 164 H 149 H Hemoglobin A1c Lactic Acid Calcium Phosphorus Magnesium Iron TIBC AST ALT Troponin T C-Reactive Protein Total Protein Albumin Triglycerides LDL Cholesterol Direct HDL Cholesterol Urine pH Urine WBC (Auto) Vancomycin Trough Salicylates Acetaminophen % CD3 Cells % CD19 Cells Absolute CD19 Count Miscellaneous Test Crossmatch 08/28/18 08/29/1819 23:33 05:25 05:25 WBC RBC 2.30 L Hgb 7.0 L Hct 20.9 L RDW 21.0 H Plt Count Lymph % (Auto) 11.5 L [place] % (Auto) 9.2 H Lymph # 0.8 L [place] # Seg Neutrophils % 78.8 H Seg Neuts % (Manual) Lymphocytes % (Manual) Nucleated RBC % Seg Neutrophils # Seg Neutrophils # Man Lymphocytes # (Manual) D-Dimer POC ABG pH POC ABG pCO2 POC ABG pO2 VBG pH Sodium Potassium Chloride 111.1 H Carbon Dioxide BUN 55 H Creatinine 1.8 H Glucose 162 H POC Glucose 143 H Hemoglobin A1c Lactic Acid Calcium Phosphorus Magnesium Iron TIBC AST 46 H ALT < 5 L Troponin T C-Reactive Protein Total Protein 5.7 L Albumin 2.1 L Triglycerides LDL Cholesterol Direct HDL Cholesterol Urine pH Urine WBC (Auto) Vancomycin Trough Salicylates Acetaminophen % CD3 Cells % CD19 Cells Absolute CD19 Count Miscellaneous Test Crossmatch 08/29/18 08/29/18 08/30/18 18:19 23:35 05:03 WBC RBC Hgb Hct RDW Plt Count Lymph % (Auto) [place] % (Auto) Lymph # [place] # Seg Neutrophils % Seg Neuts % (Manual) Lymphocytes % (Manual) Nucleated RBC % Seg Neutrophils # Seg Neutrophils # Man Lymphocytes # (Manual) D-Dimer POC ABG pH POC ABG pCO2 POC ABG pO2 VBG pH Sodium Potassium Chloride Carbon Dioxide BUN Creatinine Glucose POC Glucose 155 H 139 H 122 H Hemoglobin A1c Lactic Acid Calcium Phosphorus Magnesium Iron TIBC AST ALT Troponin T C-Reactive Protein Total Protein Albumin Triglycerides LDL Cholesterol Direct HDL Cholesterol Urine pH Urine WBC (Auto) Vancomycin Trough Salicylates Acetaminophen % CD3 Cells % CD19 Cells Absolute CD19 Count Miscellaneous Test Crossmatch 08/30/18 08/30/18 08/30/18 09:33 09:33 09:54 WBC RBC 2.58 L Hgb 7.9 L Hct 23.5 L RDW 20.9 H Plt Count Lymph % (Auto) 8.0 L [place] % (Auto) 9.7 H Lymph # 0.8 L [place] # 1.0 H Seg Neutrophils % 82.1 H Seg Neuts % (Manual) Lymphocytes % (Manual) Nucleated RBC % Seg Neutrophils # 8.2 H Seg Neutrophils # Man Lymphocytes # (Manual) D-Dimer POC ABG pH POC ABG pCO2 POC ABG pO2 VBG pH Sodium 146 H Potassium Chloride 110.7 H Carbon Dioxide BUN 56 H Creatinine 1.9 H Glucose 145 H POC Glucose Hemoglobin A1c Lactic Acid Calcium Phosphorus 4.60 H Magnesium Iron TIBC AST ALT < 5 L Troponin T C-Reactive Protein Total Protein Albumin 2.7 L Triglycerides LDL Cholesterol Direct HDL Cholesterol Urine pH Urine WBC (Auto) Vancomycin Trough Salicylates Acetaminophen % CD3 Cells % CD19 Cells Absolute CD19 Count Miscellaneous Test Flexitest 1 H Crossmatch 08/30/18 08/30/18 08/30/18 09:57 11:26 18:08 WBC RBC Hgb Hct RDW Plt Count Lymph % (Auto) [place] % (Auto) Lymph # [place] # Seg Neutrophils % Seg Neuts % (Manual) Lymphocytes % (Manual) Nucleated RBC % Seg Neutrophils # Seg Neutrophils # Man Lymphocytes # (Manual) D-Dimer POC ABG pH POC ABG pCO2 POC ABG pO2 VBG pH Sodium Potassium Chloride Carbon Dioxide BUN Creatinine Glucose POC Glucose 149 H 156 H Hemoglobin A1c Lactic Acid Calcium Phosphorus Magnesium Iron TIBC AST ALT Troponin T C-Reactive Protein Total Protein Albumin Triglycerides LDL Cholesterol Direct HDL Cholesterol Urine pH Urine WBC (Auto) Vancomycin Trough Salicylates Acetaminophen % CD3 Cells % CD19 Cells Absolute CD19 Count Miscellaneous Test Flexitest 1 H Crossmatch 08/30/18 08/31/18 08/31/18 23:14 05:16 08:40 WBC RBC Hgb Hct RDW Plt Count Lymph % (Auto) [place] % (Auto) Lymph # [place] # Seg Neutrophils % Seg Neuts % (Manual) Lymphocytes % (Manual) Nucleated RBC % Seg Neutrophils # Seg Neutrophils # Man Lymphocytes # (Manual) D-Dimer POC ABG pH POC ABG pCO2 POC ABG pO2 VBG pH Sodium 151 H Potassium Chloride 113.8 H Carbon Dioxide BUN 45 H Creatinine Glucose 144 H POC Glucose 117 H 133 H Hemoglobin A1c Lactic Acid Calcium Phosphorus Magnesium Iron TIBC AST ALT Troponin T C-Reactive Protein Total Protein Albumin Triglycerides LDL Cholesterol Direct HDL Cholesterol Urine pH Urine WBC (Auto) Vancomycin Trough Salicylates Acetaminophen % CD3 Cells % CD19 Cells Absolute CD19 Count Miscellaneous Test Crossmatch 08/31/18 09/01/18 09/01/18 23:46 04:45 04:45 WBC RBC 2.38 L Hgb 7.3 L Hct 22.1 L RDW 21.1 H Plt Count Lymph % (Auto) [place] % (Auto) Lymph # [place] # Seg Neutrophils % Seg Neuts % (Manual) 93.0 H Lymphocytes % (Manual) 4.0 L Nucleated RBC % Seg Neutrophils # Seg Neutrophils # Man 10.1 H Lymphocytes # (Manual) 0.4 L D-Dimer POC ABG pH POC ABG pCO2 POC ABG pO2 VBG pH Sodium 156 H Potassium 3.1 L Chloride 115.2 H Carbon Dioxide BUN 34 H Creatinine Glucose 125 H POC Glucose 124 H Hemoglobin A1c Lactic Acid Calcium Phosphorus Magnesium Iron TIBC AST ALT Troponin T C-Reactive Protein Total Protein Albumin Triglycerides LDL Cholesterol Direct HDL Cholesterol Urine pH Urine WBC (Auto) Vancomycin Trough Salicylates Acetaminophen % CD3 Cells % CD19 Cells Absolute CD19 Count Miscellaneous Test Crossmatch 09/01/18 09/01/18 09/01/18 05:34 11:20 17:52 WBC RBC Hgb Hct RDW Plt Count Lymph % (Auto) [place] % (Auto) Lymph # [place] # Seg Neutrophils % Seg Neuts % (Manual) Lymphocytes % (Manual) Nucleated RBC % Seg Neutrophils # Seg Neutrophils # Man Lymphocytes # (Manual) D-Dimer POC ABG pH 7.553 H POC ABG pCO2 POC ABG pO2 74 L VBG pH Sodium Potassium Chloride Carbon Dioxide BUN Creatinine Glucose POC Glucose 128 H 146 H Hemoglobin A1c Lactic Acid Calcium Phosphorus Magnesium Iron TIBC AST ALT Troponin T C-Reactive Protein Total Protein Albumin Triglycerides LDL Cholesterol Direct HDL Cholesterol Urine pH Urine WBC (Auto) Vancomycin Trough Salicylates Acetaminophen % CD3 Cells % CD19 Cells Absolute CD19 Count Miscellaneous Test Crossmatch 09/01/18 09/02/18 09/02/18 17:52 04:13 04:58 WBC 16.4 H RBC 2.64 L Hgb 7.9 L Hct 24.3 L RDW 20.8 H Plt Count Lymph % (Auto) [place] % (Auto) Lymph # [place] # Seg Neutrophils % Seg Neuts % (Manual) 96.0 H Lymphocytes % (Manual) 1.0 L Nucleated RBC % Seg Neutrophils # Seg Neutrophils # Man 15.7 H Lymphocytes # (Manual) 0.2 L D-Dimer POC ABG pH 7.488 H POC ABG pCO2 POC ABG pO2 63 L VBG pH Sodium Potassium Chloride Carbon Dioxide BUN Creatinine Glucose POC Glucose 143 H Hemoglobin A1c Lactic Acid Calcium Phosphorus Magnesium Iron TIBC AST ALT Troponin T C-Reactive Protein Total Protein Albumin Triglycerides LDL Cholesterol Direct HDL Cholesterol Urine pH Urine WBC (Auto) Vancomycin Trough Salicylates Acetaminophen % CD3 Cells % CD19 Cells Absolute CD19 Count Miscellaneous Test Crossmatch 09/02/18 09/02/18 09/02/18 04:58 11:03 18:18 WBC RBC Hgb Hct RDW Plt Count Lymph % (Auto) [place] % (Auto) Lymph # [place] # Seg Neutrophils % Seg Neuts % (Manual) Lymphocytes % (Manual) Nucleated RBC % Seg Neutrophils # Seg Neutrophils # Man Lymphocytes # (Manual) D-Dimer POC ABG pH 7.344 L POC ABG pCO2 52.8 H POC ABG pO2 VBG pH Sodium 158 H Potassium 2.9 L* Chloride 115.7 H Carbon Dioxide BUN 27 H Creatinine 0.6 L Glucose 128 H POC Glucose 121 H Hemoglobin A1c Lactic Acid Calcium Phosphorus Magnesium 1.60 L Iron TIBC AST 64 H ALT Troponin T C-Reactive Protein Total Protein Albumin 2.6 L Triglycerides LDL Cholesterol Direct HDL Cholesterol Urine pH Urine WBC (Auto) Vancomycin Trough Salicylates Acetaminophen % CD3 Cells % CD19 Cells Absolute CD19 Count Miscellaneous Test Crossmatch 09/02/18 09/03/18 09/03/18 23:06 03:36 04:25 WBC RBC 2.20 L Hgb 6.7 L Hct 20.9 L RDW 21.1 H Plt Count Lymph % (Auto) [place] % (Auto) Lymph # [place] # Seg Neutrophils % Seg Neuts % (Manual) 90.0 H Lymphocytes % (Manual) 5.0 L Nucleated RBC % Seg Neutrophils # Seg Neutrophils # Man 8.7 H Lymphocytes # (Manual) 0.5 L D-Dimer POC ABG pH POC ABG pCO2 POC ABG pO2 54 L VBG pH Sodium Potassium Chloride Carbon Dioxide BUN Creatinine Glucose POC Glucose 121 H Hemoglobin A1c Lactic Acid Calcium Phosphorus Magnesium Iron TIBC AST ALT Troponin T C-Reactive Protein Total Protein Albumin Triglycerides LDL Cholesterol Direct HDL Cholesterol Urine pH Urine WBC (Auto) Vancomycin Trough Salicylates Acetaminophen % CD3 Cells % CD19 Cells Absolute CD19 Count Miscellaneous Test Crossmatch 09/03/18 09/03/18 09/03/18 04:25 05:45 10:24 WBC RBC Hgb Hct RDW Plt Count Lymph % (Auto) [place] % (Auto) Lymph # [place] # Seg Neutrophils % Seg Neuts % (Manual) Lymphocytes % (Manual) Nucleated RBC % Seg Neutrophils # Seg Neutrophils # Man Lymphocytes # (Manual) D-Dimer POC ABG pH POC ABG pCO2 POC ABG pO2 VBG pH Sodium 158 H Potassium 3.1 L Chloride 120.4 H Carbon Dioxide BUN 25 H Creatinine 0.6 L Glucose 127 H POC Glucose 178 H Hemoglobin A1c Lactic Acid Calcium 7.9 L Phosphorus Magnesium Iron TIBC AST ALT Troponin T C-Reactive Protein Total Protein 6.0 L Albumin 2.4 L Triglycerides LDL Cholesterol Direct HDL Cholesterol Urine pH Urine WBC (Auto) Vancomycin Trough Salicylates Acetaminophen % CD3 Cells % CD19 Cells Absolute CD19 Count Miscellaneous Test Crossmatch See Detail 09/03/18 09/03/18 09/04/18 11:27 23:09 04:42 WBC RBC Hgb Hct RDW Plt Count Lymph % (Auto) [place] % (Auto) Lymph # [place] # Seg Neutrophils % Seg Neuts % (Manual) Lymphocytes % (Manual) Nucleated RBC % Seg Neutrophils # Seg Neutrophils # Man Lymphocytes # (Manual) D-Dimer POC ABG pH 7.293 L POC ABG pCO2 50.2 H POC ABG pO2 VBG pH Sodium Potassium Chloride Carbon Dioxide BUN Creatinine Glucose POC Glucose 107 H 139 H Hemoglobin A1c Lactic Acid Calcium Phosphorus Magnesium Iron TIBC AST ALT Troponin T C-Reactive Protein Total Protein Albumin Triglycerides LDL Cholesterol Direct HDL Cholesterol Urine pH Urine WBC (Auto) Vancomycin Trough Salicylates Acetaminophen % CD3 Cells % CD19 Cells Absolute CD19 Count Miscellaneous Test Crossmatch 09/04/18 09/04/18 09/04/18 05:00 06:30 06:30 WBC RBC 2.32 L Hgb 7.0 L Hct 21.9 L RDW 20.2 H Plt Count Lymph % (Auto) [place] % (Auto) Lymph # [place] # Seg Neutrophils % 80.1 H Seg Neuts % (Manual) Lymphocytes % (Manual) Nucleated RBC % Seg Neutrophils # 8.2 H Seg Neutrophils # Man Lymphocytes # (Manual) D-Dimer POC ABG pH POC ABG pCO2 POC ABG pO2 VBG pH Sodium 150 H D Potassium Chloride 115.9 H Carbon Dioxide BUN 21 H Creatinine 0.6 L Glucose 125 H POC Glucose 154 H Hemoglobin A1c Lactic Acid Calcium 7.9 L Phosphorus Magnesium 1.50 L Iron TIBC AST ALT Troponin T C-Reactive Protein Total Protein Albumin Triglycerides LDL Cholesterol Direct HDL Cholesterol Urine pH Urine WBC (Auto) Vancomycin Trough Salicylates Acetaminophen % CD3 Cells % CD19 Cells Absolute CD19 Count Miscellaneous Test Crossmatch 09/04/18 09/04/18 09/04/18 11:20 11:51 18:27 WBC RBC Hgb Hct RDW Plt Count Lymph % (Auto) [place] % (Auto) Lymph # [place] # Seg Neutrophils % Seg Neuts % (Manual) Lymphocytes % (Manual) Nucleated RBC % Seg Neutrophils # Seg Neutrophils # Man Lymphocytes # (Manual) D-Dimer POC ABG pH 7.244 L POC ABG pCO2 54.2 H POC ABG pO2 62 L VBG pH Sodium Potassium Chloride Carbon Dioxide BUN Creatinine Glucose POC Glucose 156 H 129 H Hemoglobin A1c Lactic Acid Calcium Phosphorus Magnesium Iron TIBC AST ALT Troponin T C-Reactive Protein Total Protein Albumin Triglycerides LDL Cholesterol Direct HDL Cholesterol Urine pH Urine WBC (Auto) Vancomycin Trough Salicylates Acetaminophen % CD3 Cells % CD19 Cells Absolute CD19 Count Miscellaneous Test Crossmatch 09/05/18 09/05/18 09/05/18 03:46 04:00 04:00 WBC RBC 2.13 L Hgb 6.4 L Hct 20.1 L RDW 19.9 H Plt Count 117 L Lymph % (Auto) [place] % (Auto) Lymph # 0.9 L [place] # Seg Neutrophils % 81.7 H Seg Neuts % (Manual) Lymphocytes % (Manual) Nucleated RBC % Seg Neutrophils # Seg Neutrophils # Man Lymphocytes # (Manual) D-Dimer POC ABG pH 7.282 L POC ABG pCO2 57.3 H POC ABG pO2 124 H VBG pH Sodium Potassium Chloride 111.0 H Carbon Dioxide BUN 20 H Creatinine Glucose 130 H POC Glucose Hemoglobin A1c Lactic Acid Calcium 7.8 L Phosphorus Magnesium 1.60 L Iron TIBC AST ALT Troponin T C-Reactive Protein Total Protein Albumin Triglycerides LDL Cholesterol Direct HDL Cholesterol Urine pH Urine WBC (Auto) Vancomycin Trough Salicylates Acetaminophen % CD3 Cells % CD19 Cells Absolute CD19 Count Miscellaneous Test Crossmatch 09/05/18 09/05/18 09/05/18 12:15 17:24 23:24 WBC RBC Hgb Hct RDW Plt Count Lymph % (Auto) [place] % (Auto) Lymph # [place] # Seg Neutrophils % Seg Neuts % (Manual) Lymphocytes % (Manual) Nucleated RBC % Seg Neutrophils # Seg Neutrophils # Man Lymphocytes # (Manual) D-Dimer POC ABG pH POC ABG pCO2 POC ABG pO2 VBG pH Sodium Potassium Chloride Carbon Dioxide BUN Creatinine Glucose POC Glucose 143 H 116 H 116 H Hemoglobin A1c Lactic Acid Calcium Phosphorus Magnesium Iron TIBC AST ALT Troponin T C-Reactive Protein Total Protein Albumin Triglycerides LDL Cholesterol Direct HDL Cholesterol Urine pH Urine WBC (Auto) Vancomycin Trough Salicylates Acetaminophen % CD3 Cells % CD19 Cells Absolute CD19 Count Miscellaneous Test Crossmatch 09/06/18 09/06/18 09/06/18 03:33 04:20 04:20 WBC RBC 2.45 L Hgb 7.4 L Hct 23.0 L RDW 18.1 H Plt Count 99 L Lymph % (Auto) [place] % (Auto) Lymph # 1.0 L [place] # Seg Neutrophils % 78.0 H Seg Neuts % (Manual) Lymphocytes % (Manual) Nucleated RBC % Seg Neutrophils # Seg Neutrophils # Man Lymphocytes # (Manual) D-Dimer POC ABG pH 7.303 L POC ABG pCO2 49.2 H POC ABG pO2 73 L VBG pH Sodium Potassium Chloride 109.3 H Carbon Dioxide BUN 24 H Creatinine Glucose 108 H POC Glucose Hemoglobin A1c Lactic Acid Calcium 8.1 L Phosphorus Magnesium Iron TIBC AST ALT Troponin T C-Reactive Protein Total Protein Albumin Triglycerides LDL Cholesterol Direct HDL Cholesterol Urine pH Urine WBC (Auto) Vancomycin Trough Salicylates Acetaminophen % CD3 Cells % CD19 Cells Absolute CD19 Count Miscellaneous Test Crossmatch 09/06/18 09/06/18 09/06/18 04:55 11:29 14:40 WBC RBC Hgb Hct RDW Plt Count Lymph % (Auto) [place] % (Auto) Lymph # [place] # Seg Neutrophils % Seg Neuts % (Manual) Lymphocytes % (Manual) Nucleated RBC % Seg Neutrophils # Seg Neutrophils # Man Lymphocytes # (Manual) D-Dimer POC ABG pH POC ABG pCO2 POC ABG pO2 VBG pH Sodium Potassium Chloride Carbon Dioxide BUN Creatinine Glucose POC Glucose 124 H 149 H Hemoglobin A1c Lactic Acid Calcium Phosphorus Magnesium Iron TIBC AST ALT Troponin T C-Reactive Protein Total Protein Albumin Triglycerides LDL Cholesterol Direct HDL Cholesterol Urine pH Urine WBC (Auto) Vancomycin Trough 28.6 H Salicylates Acetaminophen % CD3 Cells % CD19 Cells Absolute CD19 Count Miscellaneous Test Crossmatch 09/06/18 09/06/18 09/07/18 17:43 20:08 00:39 WBC RBC Hgb Hct RDW Plt Count Lymph % (Auto) [place] % (Auto) Lymph # [place] # Seg Neutrophils % Seg Neuts % (Manual) Lymphocytes % (Manual) Nucleated RBC % Seg Neutrophils # Seg Neutrophils # Man Lymphocytes # (Manual) D-Dimer POC ABG pH POC ABG pCO2 POC ABG pO2 VBG pH Sodium Potassium Chloride Carbon Dioxide BUN Creatinine Glucose POC Glucose 138 H 118 H 131 H Hemoglobin A1c Lactic Acid Calcium Phosphorus Magnesium Iron TIBC AST ALT Troponin T C-Reactive Protein Total Protein Albumin Triglycerides LDL Cholesterol Direct HDL Cholesterol Urine pH Urine WBC (Auto) Vancomycin Trough Salicylates Acetaminophen % CD3 Cells % CD19 Cells Absolute CD19 Count Miscellaneous Test Crossmatch 09/07/18 09/07/18 09/07/18 05:40 05:40 12:03 WBC RBC 2.40 L Hgb 7.3 L Hct 22.5 L RDW 17.8 H Plt Count 92 L Lymph % (Auto) [place] % (Auto) Lymph # [place] # Seg Neutrophils % Seg Neuts % (Manual) 80.0 H Lymphocytes % (Manual) Nucleated RBC % 1.0 H Seg Neutrophils # Seg Neutrophils # Man Lymphocytes # (Manual) 0.8 L D-Dimer POC ABG pH POC ABG pCO2 POC ABG pO2 VBG pH Sodium Potassium Chloride 109.8 H Carbon Dioxide BUN 26 H Creatinine Glucose 118 H POC Glucose 145 H Hemoglobin A1c Lactic Acid Calcium 8.0 L Phosphorus Magnesium Iron 26 L TIBC 150 L AST 88 H ALT Troponin T C-Reactive Protein Total Protein 5.8 L Albumin 2.1 L Triglycerides LDL Cholesterol Direct HDL Cholesterol Urine pH Urine WBC (Auto) Vancomycin Trough Salicylates Acetaminophen % CD3 Cells % CD19 Cells Absolute CD19 Count Miscellaneous Test Crossmatch 09/07/18 09/07/18 09/08/18 17:39 23:21 05:48 WBC RBC Hgb Hct RDW Plt Count Lymph % (Auto) [place] % (Auto) Lymph # [place] # Seg Neutrophils % Seg Neuts % (Manual) Lymphocytes % (Manual) Nucleated RBC % Seg Neutrophils # Seg Neutrophils # Man Lymphocytes # (Manual) D-Dimer POC ABG pH POC ABG pCO2 POC ABG pO2 VBG pH Sodium Potassium Chloride Carbon Dioxide BUN Creatinine Glucose POC Glucose 128 H 136 H 129 H Hemoglobin A1c Lactic Acid Calcium Phosphorus Magnesium Iron TIBC AST ALT Troponin T C-Reactive Protein Total Protein Albumin Triglycerides LDL Cholesterol Direct HDL Cholesterol Urine pH Urine WBC (Auto) Vancomycin Trough Salicylates Acetaminophen % CD3 Cells % CD19 Cells Absolute CD19 Count Miscellaneous Test Crossmatch 09/08/18 09/08/18 09/08/18 06:17 10:06 10:42 WBC RBC Hgb Hct RDW Plt Count Lymph % (Auto) [place] % (Auto) Lymph # [place] # Seg Neutrophils % Seg Neuts % (Manual) Lymphocytes % (Manual) Nucleated RBC % Seg Neutrophils # Seg Neutrophils # Man Lymphocytes # (Manual) D-Dimer POC ABG pH 7.292 L 7.276 L POC ABG pCO2 56.9 H 65.1 H POC ABG pO2 VBG pH Sodium 146 H Potassium Chloride 109.1 H Carbon Dioxide BUN 28 H Creatinine Glucose 165 H POC Glucose Hemoglobin A1c Lactic Acid Calcium Phosphorus Magnesium Iron TIBC AST ALT Troponin T C-Reactive Protein Total Protein Albumin Triglycerides LDL Cholesterol Direct HDL Cholesterol Urine pH Urine WBC (Auto) Vancomycin Trough Salicylates Acetaminophen % CD3 Cells % CD19 Cells Absolute CD19 Count Miscellaneous Test Crossmatch 09/08/18 09/08/18 09/08/18 11:06 18:07 23:20 WBC RBC Hgb Hct RDW Plt Count Lymph % (Auto) [place] % (Auto) Lymph # [place] # Seg Neutrophils % Seg Neuts % (Manual) Lymphocytes % (Manual) Nucleated RBC % Seg Neutrophils # Seg Neutrophils # Man Lymphocytes # (Manual) D-Dimer POC ABG pH POC ABG pCO2 POC ABG pO2 VBG pH Sodium Potassium Chloride Carbon Dioxide BUN Creatinine Glucose POC Glucose 165 H 140 H 124 H Hemoglobin A1c Lactic Acid Calcium Phosphorus Magnesium Iron TIBC AST ALT Troponin T C-Reactive Protein Total Protein Albumin Triglycerides LDL Cholesterol Direct HDL Cholesterol Urine pH Urine WBC (Auto) Vancomycin Trough Salicylates Acetaminophen % CD3 Cells % CD19 Cells Absolute CD19 Count Miscellaneous Test Crossmatch 09/09/18 09/09/18 09/09/18 05:04 08:39 08:39 WBC RBC 2.60 L Hgb 8.1 L Hct 24.6 L RDW 17.9 H Plt Count Lymph % (Auto) [place] % (Auto) Lymph # [place] # Seg Neutrophils % Seg Neuts % (Manual) Lymphocytes % (Manual) Nucleated RBC % Seg Neutrophils # Seg Neutrophils # Man Lymphocytes # (Manual) D-Dimer POC ABG pH POC ABG pCO2 POC ABG pO2 VBG pH Sodium Potassium Chloride Carbon Dioxide BUN 32 H Creatinine Glucose 150 H POC Glucose 168 H Hemoglobin A1c Lactic Acid Calcium Phosphorus Magnesium Iron TIBC AST ALT Troponin T C-Reactive Protein Total Protein Albumin Triglycerides LDL Cholesterol Direct HDL Cholesterol Urine pH Urine WBC (Auto) Vancomycin Trough Salicylates Acetaminophen % CD3 Cells % CD19 Cells Absolute CD19 Count Miscellaneous Test Crossmatch 09/09/18 09/10/18 09/10/18 12:41 04:20 04:20 WBC RBC 2.49 L Hgb 7.7 L Hct 23.4 L RDW 18.0 H Plt Count Lymph % (Auto) 8.2 L [place] % (Auto) Lymph # 0.7 L [place] # Seg Neutrophils % 87.7 H Seg Neuts % (Manual) Lymphocytes % (Manual) Nucleated RBC % Seg Neutrophils # Seg Neutrophils # Man Lymphocytes # (Manual) D-Dimer POC ABG pH POC ABG pCO2 POC ABG pO2 VBG pH Sodium Potassium Chloride Carbon Dioxide 31 H BUN 39 H Creatinine Glucose 183 H POC Glucose 150 H Hemoglobin A1c Lactic Acid Calcium Phosphorus Magnesium Iron TIBC AST 85 H ALT 58 H Troponin T C-Reactive Protein Total Protein Albumin 2.5 L Triglycerides LDL Cholesterol Direct HDL Cholesterol Urine pH Urine WBC (Auto) Vancomycin Trough Salicylates Acetaminophen % CD3 Cells % CD19 Cells Absolute CD19 Count Miscellaneous Test Crossmatch 09/10/18 09/10/18 09/10/18 04:39 05:06 11:17 WBC RBC Hgb Hct RDW Plt Count Lymph % (Auto) [place] % (Auto) Lymph # [place] # Seg Neutrophils % Seg Neuts % (Manual) Lymphocytes % (Manual) Nucleated RBC % Seg Neutrophils # Seg Neutrophils # Man Lymphocytes # (Manual) D-Dimer POC ABG pH POC ABG pCO2 51.4 H POC ABG pO2 VBG pH Sodium Potassium Chloride Carbon Dioxide BUN Creatinine Glucose POC Glucose 185 H 159 H Hemoglobin A1c Lactic Acid Calcium Phosphorus Magnesium Iron TIBC AST ALT Troponin T C-Reactive Protein Total Protein Albumin Triglycerides LDL Cholesterol Direct HDL Cholesterol Urine pH Urine WBC (Auto) Vancomycin Trough Salicylates Acetaminophen % CD3 Cells % CD19 Cells Absolute CD19 Count Miscellaneous Test Crossmatch 09/10/18 09/11/18 09/11/18 16:57 00:17 01:10 WBC RBC Hgb Hct RDW Plt Count Lymph % (Auto) [place] % (Auto) Lymph # [place] # Seg Neutrophils % Seg Neuts % (Manual) Lymphocytes % (Manual) Nucleated RBC % Seg Neutrophils # Seg Neutrophils # Man Lymphocytes # (Manual) D-Dimer POC ABG pH POC ABG pCO2 POC ABG pO2 VBG pH Sodium Potassium Chloride Carbon Dioxide 34 H BUN 44 H Creatinine Glucose 154 H POC Glucose 177 H 163 H Hemoglobin A1c Lactic Acid Calcium Phosphorus Magnesium Iron TIBC AST 86 H ALT 68 H Troponin T C-Reactive Protein Total Protein Albumin 2.6 L Triglycerides LDL Cholesterol Direct HDL Cholesterol Urine pH Urine WBC (Auto) Vancomycin Trough Salicylates Acetaminophen % CD3 Cells % CD19 Cells Absolute CD19 Count Miscellaneous Test Crossmatch 09/11/18 09/11/18 09/11/18 01:10 06:03 09:00 WBC 13.7 H RBC 2.61 L Hgb 8.0 L Hct 24.6 L RDW 19.1 H Plt Count Lymph % (Auto) 6.1 L [place] % (Auto) Lymph # 0.8 L [place] # Seg Neutrophils % 87.7 H Seg Neuts % (Manual) Lymphocytes % (Manual) Nucleated RBC % Seg Neutrophils # 12.0 H Seg Neutrophils # Man Lymphocytes # (Manual) D-Dimer POC ABG pH POC ABG pCO2 POC ABG pO2 VBG pH Sodium Potassium Chloride Carbon Dioxide 33 H BUN 45 H Creatinine Glucose 147 H POC Glucose 180 H Hemoglobin A1c Lactic Acid Calcium Phosphorus Magnesium Iron TIBC AST ALT Troponin T C-Reactive Protein Total Protein Albumin Triglycerides LDL Cholesterol Direct HDL Cholesterol Urine pH Urine WBC (Auto) Vancomycin Trough Salicylates Acetaminophen % CD3 Cells % CD19 Cells Absolute CD19 Count Miscellaneous Test Crossmatch 09/11/18 09/11/18 09/11/18 11:14 11:31 17:11 WBC RBC Hgb Hct RDW Plt Count Lymph % (Auto) [place] % (Auto) Lymph # [place] # Seg Neutrophils % Seg Neuts % (Manual) Lymphocytes % (Manual) Nucleated RBC % Seg Neutrophils # Seg Neutrophils # Man Lymphocytes # (Manual) D-Dimer POC ABG pH 7.498 H POC ABG pCO2 46.3 H POC ABG pO2 VBG pH Sodium Potassium Chloride Carbon Dioxide BUN Creatinine Glucose POC Glucose 163 H 202 H Hemoglobin A1c Lactic Acid Calcium Phosphorus Magnesium Iron TIBC AST ALT Troponin T C-Reactive Protein Total Protein Albumin Triglycerides LDL Cholesterol Direct HDL Cholesterol Urine pH Urine WBC (Auto) Vancomycin Trough Salicylates Acetaminophen % CD3 Cells % CD19 Cells Absolute CD19 Count Miscellaneous Test Crossmatch 09/11/18 09/12/18 09/12/18 23:49 03:16 05:30 WBC RBC 2.36 L Hgb 7.3 L Hct 22.3 L RDW 18.4 H Plt Count Lymph % (Auto) 13.0 L [place] % (Auto) 9.3 H Lymph # 1.1 L [place] # Seg Neutrophils % 77.5 H Seg Neuts % (Manual) Lymphocytes % (Manual) Nucleated RBC % Seg Neutrophils # Seg Neutrophils # Man Lymphocytes # (Manual) D-Dimer POC ABG pH 7.517 H POC ABG pCO2 48.8 H POC ABG pO2 VBG pH Sodium Potassium Chloride Carbon Dioxide BUN Creatinine Glucose POC Glucose 163 H Hemoglobin A1c Lactic Acid Calcium Phosphorus Magnesium Iron TIBC AST ALT Troponin T C-Reactive Protein Total Protein Albumin Triglycerides LDL Cholesterol Direct HDL Cholesterol Urine pH Urine WBC (Auto) Vancomycin Trough Salicylates Acetaminophen % CD3 Cells % CD19 Cells Absolute CD19 Count Miscellaneous Test Crossmatch 09/12/18 09/12/18 09/12/18 05:30 06:07 11:36 WBC RBC Hgb Hct RDW Plt Count Lymph % (Auto) [place] % (Auto) Lymph # [place] # Seg Neutrophils % Seg Neuts % (Manual) Lymphocytes % (Manual) Nucleated RBC % Seg Neutrophils # Seg Neutrophils # Man Lymphocytes # (Manual) D-Dimer POC ABG pH POC ABG pCO2 POC ABG pO2 VBG pH Sodium 148 H Potassium Chloride Carbon Dioxide 36 H BUN 46 H Creatinine Glucose 152 H POC Glucose 172 H 212 H Hemoglobin A1c Lactic Acid Calcium Phosphorus Magnesium Iron TIBC AST ALT Troponin T C-Reactive Protein Total Protein Albumin Triglycerides LDL Cholesterol Direct HDL Cholesterol Urine pH Urine WBC (Auto) Vancomycin Trough Salicylates Acetaminophen % CD3 Cells % CD19 Cells Absolute CD19 Count Miscellaneous Test Crossmatch 09/12/18 09/12/18 09/13/18 18:02 23:19 03:55 WBC RBC Hgb Hct RDW Plt Count Lymph % (Auto) [place] % (Auto) Lymph # [place] # Seg Neutrophils % Seg Neuts % (Manual) Lymphocytes % (Manual) Nucleated RBC % Seg Neutrophils # Seg Neutrophils # Man Lymphocytes # (Manual) D-Dimer POC ABG pH 7.520 H POC ABG pCO2 48.0 H POC ABG pO2 58 L VBG pH Sodium Potassium Chloride Carbon Dioxide BUN Creatinine Glucose POC Glucose 142 H 161 H Hemoglobin A1c Lactic Acid Calcium Phosphorus Magnesium Iron TIBC AST ALT Troponin T C-Reactive Protein Total Protein Albumin Triglycerides LDL Cholesterol Direct HDL Cholesterol Urine pH Urine WBC (Auto) Vancomycin Trough Salicylates Acetaminophen % CD3 Cells % CD19 Cells Absolute CD19 Count Miscellaneous Test Crossmatch 09/13/18 09/13/18 09/13/18 05:11 05:25 05:25 WBC RBC 2.38 L Hgb 7.6 L Hct 22.4 L RDW 18.6 H Plt Count Lymph % (Auto) [place] % (Auto) Lymph # [place] # Seg Neutrophils % Seg Neuts % (Manual) Lymphocytes % (Manual) Nucleated RBC % Seg Neutrophils # Seg Neutrophils # Man Lymphocytes # (Manual) D-Dimer POC ABG pH POC ABG pCO2 POC ABG pO2 VBG pH Sodium Potassium 3.2 L Chloride 97.5 L Carbon Dioxide 38 H BUN 38 H Creatinine 0.6 L Glucose 120 H POC Glucose 139 H Hemoglobin A1c Lactic Acid Calcium 8.1 L Phosphorus Magnesium Iron TIBC AST 120 H ALT 124 H Troponin T C-Reactive Protein Total Protein 5.9 L Albumin 2.6 L Triglycerides LDL Cholesterol Direct HDL Cholesterol Urine pH Urine WBC (Auto) Vancomycin Trough Salicylates Acetaminophen % CD3 Cells % CD19 Cells Absolute CD19 Count Miscellaneous Test Crossmatch 09/13/18 09/13/18 09/13/18 11:31 17:46 23:23 WBC RBC Hgb Hct RDW Plt Count Lymph % (Auto) [place] % (Auto) Lymph # [place] # Seg Neutrophils % Seg Neuts % (Manual) Lymphocytes % (Manual) Nucleated RBC % Seg Neutrophils # Seg Neutrophils # Man Lymphocytes # (Manual) D-Dimer POC ABG pH POC ABG pCO2 POC ABG pO2 VBG pH Sodium Potassium Chloride Carbon Dioxide BUN Creatinine Glucose POC Glucose 160 H 145 H 135 H Hemoglobin A1c Lactic Acid Calcium Phosphorus Magnesium Iron TIBC AST ALT Troponin T C-Reactive Protein Total Protein Albumin Triglycerides LDL Cholesterol Direct HDL Cholesterol Urine pH Urine WBC (Auto) Vancomycin Trough Salicylates Acetaminophen % CD3 Cells % CD19 Cells Absolute CD19 Count Miscellaneous Test Crossmatch 09/14/18 09/14/18 09/14/18 03:56 04:55 04:55 WBC RBC 2.28 L Hgb 7.1 L Hct 21.4 L RDW 18.2 H Plt Count Lymph % (Auto) [place] % (Auto) Lymph # [place] # Seg Neutrophils % 76.4 H Seg Neuts % (Manual) Lymphocytes % (Manual) Nucleated RBC % Seg Neutrophils # Seg Neutrophils # Man Lymphocytes # (Manual) D-Dimer POC ABG pH 7.503 H POC ABG pCO2 49.1 H POC ABG pO2 79 L VBG pH Sodium Potassium Chloride 97.7 L Carbon Dioxide 35 H BUN 32 H Creatinine 0.6 L Glucose 114 H POC Glucose Hemoglobin A1c Lactic Acid Calcium Phosphorus Magnesium Iron TIBC AST 60 H ALT 88 H Troponin T C-Reactive Protein Total Protein 5.6 L Albumin 2.2 L Triglycerides LDL Cholesterol Direct HDL Cholesterol Urine pH Urine WBC (Auto) Vancomycin Trough Salicylates Acetaminophen % CD3 Cells % CD19 Cells Absolute CD19 Count Miscellaneous Test Crossmatch 09/14/18 09/14/18 09/14/18 05:14 12:00 12:27 WBC RBC Hgb Hct RDW Plt Count Lymph % (Auto) [place] % (Auto) Lymph # [place] # Seg Neutrophils % Seg Neuts % (Manual) Lymphocytes % (Manual) Nucleated RBC % Seg Neutrophils # Seg Neutrophils # Man Lymphocytes # (Manual) D-Dimer POC ABG pH POC ABG pCO2 POC ABG pO2 VBG pH Sodium Potassium Chloride Carbon Dioxide BUN Creatinine Glucose POC Glucose 115 H 125 H Hemoglobin A1c Lactic Acid Calcium Phosphorus Magnesium Iron TIBC AST ALT Troponin T C-Reactive Protein Total Protein Albumin Triglycerides LDL Cholesterol Direct HDL Cholesterol Urine pH Urine WBC (Auto) Vancomycin Trough Salicylates Acetaminophen % CD3 Cells % CD19 Cells Absolute CD19 Count Miscellaneous Test Crossmatch See Detail 09/14/18 09/15/18 09/15/18 17:54 03:49 04:10 WBC RBC 2.46 L Hgb 7.7 L Hct 23.0 L RDW 18.6 H Plt Count Lymph % (Auto) [place] % (Auto) Lymph # 1.1 L [place] # Seg Neutrophils % 74.2 H Seg Neuts % (Manual) Lymphocytes % (Manual) Nucleated RBC % Seg Neutrophils # Seg Neutrophils # Man Lymphocytes # (Manual) D-Dimer POC ABG pH POC ABG pCO2 58.2 H POC ABG pO2 VBG pH Sodium Potassium Chloride Carbon Dioxide BUN Creatinine Glucose POC Glucose 138 H Hemoglobin A1c Lactic Acid Calcium Phosphorus Magnesium Iron TIBC AST ALT Troponin T C-Reactive Protein Total Protein Albumin Triglycerides LDL Cholesterol Direct HDL Cholesterol Urine pH Urine WBC (Auto) Vancomycin Trough Salicylates Acetaminophen % CD3 Cells % CD19 Cells Absolute CD19 Count Miscellaneous Test Crossmatch 09/15/18 09/15/18 09/15/18 04:10 11:36 11:36 WBC RBC Hgb Hct RDW Plt Count Lymph % (Auto) [place] % (Auto) Lymph # [place] # Seg Neutrophils % Seg Neuts % (Manual) Lymphocytes % (Manual) Nucleated RBC % Seg Neutrophils # Seg Neutrophils # Man Lymphocytes # (Manual) D-Dimer POC ABG pH POC ABG pCO2 53.5 H POC ABG pO2 67 L VBG pH Sodium Potassium Chloride Carbon Dioxide 35 H BUN 21 H Creatinine Glucose POC Glucose 108 H Hemoglobin A1c Lactic Acid Calcium 7.9 L Phosphorus Magnesium Iron TIBC AST ALT Troponin T C-Reactive Protein Total Protein Albumin Triglycerides LDL Cholesterol Direct HDL Cholesterol Urine pH Urine WBC (Auto) Vancomycin Trough Salicylates Acetaminophen % CD3 Cells % CD19 Cells Absolute CD19 Count Miscellaneous Test Crossmatch 09/16/18 09/16/18 09/16/18 01:16 04:25 11:30 WBC RBC 2.77 L Hgb 8.5 L Hct 25.6 L RDW 17.9 H Plt Count Lymph % (Auto) [place] % (Auto) Lymph # [place] # Seg Neutrophils % Seg Neuts % (Manual) Lymphocytes % (Manual) Nucleated RBC % Seg Neutrophils # Seg Neutrophils # Man Lymphocytes # (Manual) D-Dimer POC ABG pH 7.489 H POC ABG pCO2 47.6 H POC ABG pO2 62 L VBG pH Sodium Potassium Chloride Carbon Dioxide BUN Creatinine Glucose POC Glucose 108 H Hemoglobin A1c Lactic Acid Calcium Phosphorus Magnesium Iron TIBC AST ALT Troponin T C-Reactive Protein Total Protein Albumin Triglycerides LDL Cholesterol Direct HDL Cholesterol Urine pH Urine WBC (Auto) Vancomycin Trough Salicylates Acetaminophen % CD3 Cells % CD19 Cells Absolute CD19 Count Miscellaneous Test Crossmatch 09/16/18 09/16/18 09/17/18 11:30 23:07 04:22 WBC RBC Hgb Hct RDW Plt Count Lymph % (Auto) [place] % (Auto) Lymph # [place] # Seg Neutrophils % Seg Neuts % (Manual) Lymphocytes % (Manual) Nucleated RBC % Seg Neutrophils # Seg Neutrophils # Man Lymphocytes # (Manual) D-Dimer POC ABG pH 7.576 H POC ABG pCO2 POC ABG pO2 58 L VBG pH Sodium Potassium 3.2 L Chloride 96.6 L Carbon Dioxide 34 H BUN Creatinine Glucose 128 H POC Glucose 147 H Hemoglobin A1c Lactic Acid Calcium Phosphorus Magnesium Iron TIBC AST ALT Troponin T C-Reactive Protein Total Protein Albumin Triglycerides LDL Cholesterol Direct HDL Cholesterol Urine pH Urine WBC (Auto) Vancomycin Trough Salicylates Acetaminophen % CD3 Cells % CD19 Cells Absolute CD19 Count Miscellaneous Test Crossmatch 09/17/18 09/17/18 09/17/18 05:50 10:15 14:59 WBC RBC Hgb Hct RDW Plt Count Lymph % (Auto) [place] % (Auto) Lymph # [place] # Seg Neutrophils % Seg Neuts % (Manual) Lymphocytes % (Manual) Nucleated RBC % Seg Neutrophils # Seg Neutrophils # Man Lymphocytes # (Manual) D-Dimer POC ABG pH POC ABG pCO2 POC ABG pO2 VBG pH Sodium Potassium 2.6 L* Chloride 96.3 L Carbon Dioxide 33 H BUN Creatinine Glucose 151 H POC Glucose 138 H 151 H Hemoglobin A1c Lactic Acid Calcium Phosphorus Magnesium Iron TIBC AST ALT Troponin T C-Reactive Protein Total Protein Albumin Triglycerides LDL Cholesterol Direct HDL Cholesterol Urine pH Urine WBC (Auto) Vancomycin Trough Salicylates Acetaminophen % CD3 Cells % CD19 Cells Absolute CD19 Count Miscellaneous Test Crossmatch 09/17/18 09/17/18 09/18/18 17:51 Unknown 00:11 WBC RBC Hgb Hct RDW Plt Count Lymph % (Auto) [place] % (Auto) Lymph # [place] # Seg Neutrophils % Seg Neuts % (Manual) Lymphocytes % (Manual) Nucleated RBC % Seg Neutrophils # Seg Neutrophils # Man Lymphocytes # (Manual) D-Dimer POC ABG pH POC ABG pCO2 POC ABG pO2 VBG pH Sodium Potassium 2.7 L* Chloride 97.5 L Carbon Dioxide 32 H BUN Creatinine Glucose 142 H POC Glucose 149 H 128 H Hemoglobin A1c Lactic Acid Calcium Phosphorus Magnesium Iron TIBC AST ALT Troponin T C-Reactive Protein Total Protein Albumin Triglycerides LDL Cholesterol Direct HDL Cholesterol Urine pH Urine WBC (Auto) Vancomycin Trough Salicylates Acetaminophen % CD3 Cells % CD19 Cells Absolute CD19 Count Miscellaneous Test Crossmatch 09/18/18 09/18/18 09/18/18 04:20 04:20 04:28 WBC RBC 2.94 L Hgb 9.0 L Hct 27.2 L RDW 17.7 H Plt Count Lymph % (Auto) [place] % (Auto) 12.1 H Lymph # 1.0 L [place] # Seg Neutrophils % 70.2 H Seg Neuts % (Manual) Lymphocytes % (Manual) Nucleated RBC % Seg Neutrophils # Seg Neutrophils # Man Lymphocytes # (Manual) D-Dimer POC ABG pH 7.563 H POC ABG pCO2 POC ABG pO2 VBG pH Sodium Potassium 3.0 L Chloride Carbon Dioxide 33 H BUN Creatinine Glucose 133 H POC Glucose Hemoglobin A1c Lactic Acid Calcium Phosphorus Magnesium Iron TIBC AST ALT Troponin T C-Reactive Protein Total Protein Albumin Triglycerides LDL Cholesterol Direct HDL Cholesterol Urine pH Urine WBC (Auto) Vancomycin Trough Salicylates Acetaminophen % CD3 Cells % CD19 Cells Absolute CD19 Count Miscellaneous Test Crossmatch 09/18/18 09/18/18 09/19/18 06:19 14:45 00:13 WBC RBC Hgb Hct RDW Plt Count Lymph % (Auto) [place] % (Auto) Lymph # [place] # Seg Neutrophils % Seg Neuts % (Manual) Lymphocytes % (Manual) Nucleated RBC % Seg Neutrophils # Seg Neutrophils # Man Lymphocytes # (Manual) D-Dimer POC ABG pH POC ABG pCO2 POC ABG pO2 VBG pH Sodium Potassium Chloride Carbon Dioxide BUN Creatinine Glucose POC Glucose 140 H 164 H 111 H Hemoglobin A1c Lactic Acid Calcium Phosphorus Magnesium Iron TIBC AST ALT Troponin T C-Reactive Protein Total Protein Albumin Triglycerides LDL Cholesterol Direct HDL Cholesterol Urine pH Urine WBC (Auto) Vancomycin Trough Salicylates Acetaminophen % CD3 Cells % CD19 Cells Absolute CD19 Count Miscellaneous Test Crossmatch 09/19/18 09/19/18 09/19/18 03:38 05:08 05:20 WBC RBC Hgb Hct RDW Plt Count Lymph % (Auto) [place] % (Auto) Lymph # [place] # Seg Neutrophils % Seg Neuts % (Manual) Lymphocytes % (Manual) Nucleated RBC % Seg Neutrophils # Seg Neutrophils # Man Lymphocytes # (Manual) D-Dimer POC ABG pH 7.502 H POC ABG pCO2 34.6 L POC ABG pO2 73 L VBG pH Sodium Potassium 2.7 L* Chloride Carbon Dioxide BUN Creatinine 0.6 L Glucose 119 H POC Glucose 128 H Hemoglobin A1c Lactic Acid Calcium Phosphorus Magnesium Iron TIBC AST ALT Troponin T C-Reactive Protein Total Protein Albumin Triglycerides LDL Cholesterol Direct HDL Cholesterol Urine pH Urine WBC (Auto) Vancomycin Trough Salicylates Acetaminophen % CD3 Cells % CD19 Cells Absolute CD19 Count Miscellaneous Test Crossmatch 09/20/18 09/20/18 09/20/18 04:20 04:20 05:15 WBC RBC 2.89 L Hgb 9.1 L Hct 27.1 L RDW 17.1 H Plt Count Lymph % (Auto) 12.6 L [place] % (Auto) 10.7 H Lymph # 1.1 L [place] # 0.9 H Seg Neutrophils % 76.1 H Seg Neuts % (Manual) Lymphocytes % (Manual) Nucleated RBC % Seg Neutrophils # Seg Neutrophils # Man Lymphocytes # (Manual) D-Dimer POC ABG pH POC ABG pCO2 33.6 L POC ABG pO2 56 L VBG pH Sodium 136 L Potassium 2.9 L* Chloride Carbon Dioxide BUN Creatinine Glucose 116 H POC Glucose Hemoglobin A1c Lactic Acid Calcium Phosphorus Magnesium Iron TIBC AST ALT Troponin T C-Reactive Protein Total Protein Albumin Triglycerides LDL Cholesterol Direct HDL Cholesterol Urine pH Urine WBC (Auto) Vancomycin Trough Salicylates Acetaminophen % CD3 Cells % CD19 Cells Absolute CD19 Count Miscellaneous Test Crossmatch 09/20/18 09/20/18 09/20/18 11:26 16:10 23:50 WBC RBC Hgb Hct RDW Plt Count Lymph % (Auto) [place] % (Auto) Lymph # [place] # Seg Neutrophils % Seg Neuts % (Manual) Lymphocytes % (Manual) Nucleated RBC % Seg Neutrophils # Seg Neutrophils # Man Lymphocytes # (Manual) D-Dimer POC ABG pH POC ABG pCO2 POC ABG pO2 VBG pH Sodium Potassium Chloride Carbon Dioxide BUN Creatinine Glucose POC Glucose 163 H 119 H Hemoglobin A1c Lactic Acid Calcium Phosphorus Magnesium Iron TIBC AST ALT Troponin T C-Reactive Protein Total Protein Albumin Triglycerides LDL Cholesterol Direct HDL Cholesterol Urine pH 9.0 H Urine WBC (Auto) Vancomycin Trough Salicylates Acetaminophen % CD3 Cells % CD19 Cells Absolute CD19 Count Miscellaneous Test Crossmatch 09/21/18 09/21/18 09/21/18 04:35 04:35 11:30 WBC RBC 2.67 L Hgb 8.3 L Hct 25.1 L RDW 17.4 H Plt Count Lymph % (Auto) [place] % (Auto) 10.0 H Lymph # [place] # Seg Neutrophils % Seg Neuts % (Manual) Lymphocytes % (Manual) Nucleated RBC % Seg Neutrophils # Seg Neutrophils # Man Lymphocytes # (Manual) D-Dimer POC ABG pH POC ABG pCO2 POC ABG pO2 VBG pH Sodium Potassium Chloride Carbon Dioxide 21 L BUN 18 H Creatinine Glucose 106 H POC Glucose 110 H Hemoglobin A1c Lactic Acid Calcium Phosphorus Magnesium Iron TIBC AST ALT Troponin T C-Reactive Protein Total Protein Albumin Triglycerides LDL Cholesterol Direct HDL Cholesterol Urine pH Urine WBC (Auto) Vancomycin Trough Salicylates Acetaminophen % CD3 Cells % CD19 Cells Absolute CD19 Count Miscellaneous Test Crossmatch Allied health notes reviewed: nursing
[2018-09-21] MEDS ORDERED: VERSED ONE (12:53)
--- NOTE | 2018-09-21 13:45 | Operative Report ---
Operative Report Operative Report: Exam: Fluoroscopically guided placement of gastrostomy tube Clinical indication: Failure to thrive, unable to place gastrostomy tube endoscopically Date: 09/21/2018 Procedure: Following an explanation of the risks, benefits and alternatives; written informed consent was obtained. The patient was brought to the idiopathic suite and placed in supine position on the examination table. The patient's left upper abdomen was prepped to the midline. Initial fluoroscopic images demonstrated air within the stomach. Previously reviewed CT demonstrated appropriate anatomy for percutaneous placement of G-tube. A 65 cm vertebral catheter was advanced through the left nares into the stomach under fluoroscopy to serve as a nasogastric tube for insufflation. Following the administration of glucagon, the stomach was insufflated with 300 mL's of air. An appropriate access site was chosen along the mid body of the stomach. 1% lidocaine was liberally used for anesthesia. An 18-gauge needle loaded with a T tack fastener was advanced into the stomach. Contrast was injected and there was prompt opacification of the gastric rugrae. The T tack fastener was deployed and the needle removed. 2 additional T tack fastener's were then advanced into the stomach in a similar fashion and deployed. In the central aspect of the 3 fasteners, additional lidocaine was administered a skin incision was made and the tract dissected down to the abdominal wall. An 18-gauge needle was then advanced into the gastric lumen. Contrast was injected to document appropriate positioning. 0.035 guidewire was then advanced and coiled within the fundus. The needle was removed and a vertebral catheter advanced over the guidewire. The guidewire was then exchanged for an Advantage guidewire. The vertebral catheter was removed. Using a telescoping dilator, a 22 [place] peel-away sheath was advanced into the gastric lumen. The dilator removed. A 16 [place] gastrostomy tube was then advanced over the guidewire through the peel-away sheath to the hub under fluoroscopy. The peel-away sheath and guidewire were removed. The balloon was insufflated with 10 mL's of saline. The G-tube was then pulled back to approximate the anterior wall of the stomach. The skin disc was snugly fastened at the skin surface. Sterile dressings were then applied. Contrast was then injected through the newly place gastrostomy tube which demonstrated appropriate positioning and prompt opacification of the gastric mucosa. The patient tolerated the procedure well. There were no immediate post procedure complications. Sedation was provided by anesthesia services. Continuous cardiopulmonary monitoring was utilized. Impression: Fluoroscopic guided placement of gastrostomy tube
--- NOTE | 2018-09-21 14:25 | Anesthesia Day of Surgery ---
Anesthesia Day of Surgery - Day of Surgery Patient Examined: Yes Patient H&P Reviewed: Yes Patient is NPO: Yes Beta Blockers: Yes
--- NOTE | 2018-09-21 14:27 | Anesthesia Consultation ---
Anesthesia Consult and Med Hx - Airway Anesthetic Teeth Evaluation: Dentures ROM Head & Neck: Adequate Mental/Hyoid Distance: Adequate Mallampati Class: Class II Intubation Access Assessment: Probably Good - Pulmonary Exam CTA: No (Rhonchi ) - Cardiac Exam Cardiac Exam: No Murmur - Pre-Operative Health Status ASA Pre-Surgery Classification: ASA3 Proposed Anesthetic Plan: General - Pulmonary COPD: Yes (Resp failure, prolonged intubation) - Cardiovascular System Hx Hypertension: Yes Hx Pacemaker: No Hx Internal Defibrillator: No - Endocrine Hx Renal Disease: Yes - Hematic Hx Anemia: Yes - Additional Comments Anesthesia Medical History Comments: Critically ill patient for Trach / PEG. Plan IV sedation.
--- NOTE | 2018-09-21 15:31 | Progress Note ---
Assessment and Plan Cultures: 08/15/2018 blood culture: Camryn glabrata 1 of 4 08/15/2018 sputum culture: MSSA and Escherichia coli, wade susceptible 08/18/2018 blood culture: no growth 08/18/2018 urine culture: neg 08/22/2018 blood culture: no growth 08/25/2018 blood culture: no growth 09/02/2018 BAL cultures: resp almaz. Fungal and AFB pending: No growth thus far. 09/04/2018 blood culture: no growth thus far 09/04/2018 trach aspirate: no growth Fungitell was high (consistent with Candidemia), Aspergillus galactomannan negative. 09/13/2018 blood culture: no growth A/P: 68-year-old female with COPD, arthritis, history of multiple spinal surgeries was brought to the emergency room on 08/15/2018 with altered mental status: 1) Sepsis with septic shock: new fever 102.6 on 09/18 resolved. Etiology unclear. Blood cultures 09/13/2018 negative. Has indwelling PICC and Manrique. Now with persistent diarrhea. ? ?sinusitis. Recent CT abd showed new bilateral effusions, anasarca, and decreased bilateral consolidation. repeat UA neg. Repeat blood culture neg. C diff neg. 2) Recent Camryn glabrata fungemia: resolved. Etiology remains unclear. Patient without any history of indwelling PICC line, TPN or immunocompromised status. reported severe explosive diarrhea, N/V before admission after taken 4 days of amoxicillin for dental implant on 07/29/2018 and had a EGD / colonoscopy on 08/08/[address] [facility] [address] Alcantara. I reviewed report - mild chronic gastritis, focal intestinal metaplasia, squamocolumnar mucosa with mild reflux-type changes, and tubular adenoma. -s/p fluconazole 800 mg loading dose then micafungin, s/p amphotericin D6 on 08/26 -serum Crypto negative. -08/15/2018 blood culture: Camryn glabrata -08/18/2018 blood culture: no growth -CTA chest showed limited study due to respiratory motion artifact. No evidence of pulmonary embolism. Abnormal bilateral lung consolidation which may represent pulmonary edema or pneumonia. Mild cardiomegaly. Indeterminant mediastinal lymph nodes. -CT abdomen showed extensive bilateral lower lobe pulmonary infiltrates, rectal tube and Manrique catheter noted. NG tube at gastric antrum. Left hip prosthesis Extensive degenerative changes noted lumbar spine -TTE EF 25-30% no vegetations -HIV neg/ CD4 1004 -reviewed CT chest abd done 01/05/2019 showed cholecystectomy, mild fatty liver, postoperative changes of lumbar laminectomy with non specific fluid, 9 mm LLL pulmonary nodule which was compared to previous CT and was stable. -CRP 10-->5 3) Acute renal failure: On admission: improved. 4) Acute respiratory failure: Back on the vent. Recently completed pneumonia treatment. Underwent bronch + BAL on 09/02/2018. Cultures with no growth thus far. On abx. CTA chest 09/06/2018 negative for PE, bilateral air space disease, no air bronchograms as such. 5) Right maxillary sinusitis: received empiric abx. 6) Acute encephalopathy: Likely multifactorial. CT head unremarkable for acute intracranial process. 7) Cardiomyopathy, LVEF 25-30% this admission. 8) H/O left hip prosthesis ? XR no effusion. CT with no enhancement 9) Left leg DVT: on anticoagulation. Hematology following. 10) Mild transaminitis: monitor for now. RUQ US unremarkable. 11) Diahrrea: ? r/o C diff 12) Urinary retention: manrique was exchanged 09/17, patient had retention again so it could not be removed. Recs: monitor fever stop contact isolation- C diff neg stop po vancomycin remove NGT after PEG remove PICC line, ok to place midline - pending to have PEG by IR Discussed with nursing staff Will follow Yasmin Alvarez MD Infectious Diseases Promotions Assistant Sales Marketing [facility] ([facility]) M [phone] O [phone] Subjective Date of service: 09/21/18 Principal diagnosis: Acute hypoxemic hypercapnic Resp failure; AE-COPD; Acute kidney injury Interval history: Remains on the vent via trach, alert, following commands, no fever for 48h, noted diarrhea on rectal tube ROS: unable to obtain Objective - Exam Narrative Exam: Constitutional: alert follows commands, intubated tee CPAP Head, Ears, Nose: Normocephalic, atraumatic. External ears, nose normal Eyes: Conjunctivae/corneas clear. No icterus. No ptosis. Neck:+trach no secretion Oral: clear OP Cardiovascular: RRR Respiratory: CTA gonzalez GI: Soft, non-tender; bowel sounds normal. No peritoneal signs Musculoskeletal: gonzalez arm edema Skin: No rash or abscess Hem/Lymphatic: No palpable cervical or supraclavicular nodes. No lymphangitis Psych: no agitation Neurological: alert follows commands Rectal tube with diarrhea/ manrique - Constitutional Vitals: Vital Signs Temp Pulse Resp BP Pulse Ox 98.9 F 107 H 36 H 130/50 97 09/21/18 12:00 09/21/18 14:30 09/21/18 14:30 09/21/18 14:30 09/21/18 14:30 Temperature -Last 24 Hours Temperature 98.9 F Temperature 99.6 F Temperature 99.8 F Temperature 99.7 F Temperature 99.9 F Temperature 99.7 F - Labs CBC & Chem 7: 09/21/18 04:35 09/21/18 04:35 Labs: Abnormal lab results 09/20/18 09/20/18 09/21/18 Range/Units 16:10 23:50 04:35 RBC 2.67 L (3.65-5.03) M/mm3 Hgb 8.3 L (10.1-14.3) gm/dl Hct 25.1 L (30.3-42.9) % RDW 17.4 H (13.2-15.2) % Morgan % (Auto) 10.0 H (0.0-7.3) % Carbon Dioxide (22-30) mmol/L BUN (7-17) mg/dL Glucose (65-100) mg/dL POC Glucose 119 H (70-105) Urine pH 9.0 H (5.0-7.0) 09/21/18 09/21/18 Range/Units 04:35 11:30 RBC (3.65-5.03) M/mm3 Hgb (10.1-14.3) gm/dl Hct (30.3-42.9) % RDW (13.2-15.2) % Morgan % (Auto) (0.0-7.3) % Carbon Dioxide 21 L (22-30) mmol/L BUN 18 H (7-17) mg/dL Glucose 106 H (65-100) mg/dL POC Glucose 110 H (70-105) Urine pH (5.0-7.0)
[2018-09-21] MEDS: ARIXTRA SUB-Q SCH (16:24)
[2018-09-21] MEDS: POTASSIUM CHLORIDE PO SCH (21:49)
[2018-09-22] MEDS: DUONEB *Not for PRN Use IH SCH ×4 (02:15→19:35)
[2018-09-22 05:36] LABS: BUN/Creatinine Ratio 35; Blood Urea Nitrogen 21 mg/dL (7-17); Calcium 8.7 mg/dL (8.4-10.2); Hemolysis Index 6
[2018-09-22] MEDS: APRESOLINE PO SCH ×3 (05:52→21:58)
[2018-09-22] MEDS: DILAUDID PO SCH ×4 (05:53→23:11)
[2018-09-22] MEDS: HumaLOG SUB-Q SCH ×4 (06:00→17:57)
[2018-09-22] MEDS: BROVANA NEBU IH SCH ×2 (07:38→19:35)
[2018-09-22] MEDS: PULMICORT IH SCH ×2 (07:38→19:35)
--- NOTE | 2018-09-22 08:08 | Hem/Onc Progress Note ---
Assessment and Plan #. Bilateral posterior tibial and peroneal vein deep venous thrombosis, left leg edema. Arixtra was being used. - back on same #. h/o Thrombocytopenia. The patient was on heparin-based treatment. Later fondaparinux. HIT negative, plt now better #. Anemia. At admission, hemoglobin was normal. The patient received blood transfusion. deficiency workup low iron - Ferritin - b12 - folate normal . There may be a bleeding component. s/p Iv iron trial #. Pulmonary embolism study is negative. #. h/o Camryn infection. #. Chronic obstructive pulmonary disease. #. History of renal failure. Nephrology following. #. Respiratory failure, on ventilator. History of cardiomyopathy. - s/p trach 09/22 - pt on arixtra for leg dvt. candidate for IVC filter eval as pt has been anemic needing transfusion peg tube done trach+ wants to go home - Patient Problems (1) Thrombocytopenia Current Visit: Yes Status: Acute (2) DVT (deep venous thrombosis) Current Visit: Yes Status: Acute (3) Anemia Current Visit: Yes Status: Acute Subjective Date of service: 09/22/18 Principal diagnosis: dvt - anemia Interval history: wants to go home PEG done Objective - Constitutional Vitals: Last Vital Signs Temp 99.6 F 09/22/18 04:00 Pulse 79 09/22/18 07:59 Resp 22 09/22/18 07:59 BP 119/51 09/22/18 08:00 Pulse Ox 98 09/22/18 08:00 General appearance: no acute distress Performance status: 4-completely disabled - EENT Eyes: EOM intact Lymph node exam: negative cervical - Neck Neck: other (trach) - Respiratory Respiratory effort: Positive: normal Respiratory: negative: CTA - Cardiovascular Heart Sounds: Present: S1 & S2 Extremities: No edema - Gastrointestinal General gastrointestinal: Present: soft, other (peg+) Rectal Exam: deferred - Genitourinary Female genitourinary: Present: deferred - Integumentary Integumentary: warm - Musculoskeletal Musculoskeletal: generalized weakness - Neurologic Neurologic: moves all extremities - Labs Lab Results: Laboratory Results - last 24 hr 09/21/18 09/21/18 09/21/18 11:30 17:57 23:45 POC ABG pH POC ABG pCO2 POC ABG pO2 POC ABG HCO3 POC ABG Total CO2 POC ABG O2 Sat POC ABG Base Excess FiO2 Sodium Potassium Chloride Carbon Dioxide Anion Gap BUN Creatinine Estimated GFR BUN/Creatinine Ratio Glucose POC Glucose 110 H 89 83 Calcium 09/22/18 09/22/18 09/22/18 04:11 05:44 05:50 POC ABG pH 7.391 POC ABG pCO2 36.3 POC ABG pO2 95 POC ABG HCO3 22.0 POC ABG Total CO2 23 POC ABG O2 Sat 97 POC ABG Base Excess -3 FiO2 40 Sodium 139 Potassium 3.9 Chloride 104.5 Carbon Dioxide 22 Anion Gap 16 BUN 21 H Creatinine 0.6 L Estimated GFR > 60 BUN/Creatinine Ratio 35 Glucose 89 POC Glucose 86 Calcium 8.7 Medications & Allergies - Medications Allergies/Adverse Reactions: Allergies No Known Allergies Allergy (Unverified 08/15/18 16:49) Home Medications: Home Medications Medication Instructions Recorded Confirmed Last Taken Type Carvedilol 6.25 mg PO BID 08/15/18 08/15/18 Unknown History DULoxetine 60 mg PO QDAY 08/15/18 08/15/18 Unknown History Gabapentin 600 mg PO Q6HR PRN 08/15/18 08/15/18 Unknown History Methylphenidate 5 mg PO TID 08/15/18 08/15/18 Unknown History Morphabond ER 60 mg PO Q12HR 08/15/18 08/15/18 Unknown History Pravastatin Sodium 10 mg PO QDAY 08/15/18 08/15/18 Unknown History Tizanidine HCl 4 mg PO Q12HR 08/15/18 08/15/18 Unknown History oxyCODONE /ACETAMINOPHEN 7.5 - 325 mg PO Q8HR 08/15/18 08/15/18 Unknown History ALBUTEROL Inhaler(NF) 90 mcg IH TID 08/29/18 08/29/18 Unknown History Omeprazole-Bicarb 40-1,100 Cap 40 mg PO DAILY 08/29/18 08/29/18 Unknown History Active Medications: Generic Name Dose Route Start Last Admin Trade Name Freq PRN Reason Stop Dose Admin Acetaminophen 650 mg 08/15/18 22:12 09/18/18 00:26 Tylenol PO 650 mg Q4H PRN Administration Pain MILD(1-3)/Fever >100.5/MONDRAGON Albuterol 2.5 mg 08/17/18 17:00 Proventil IH Q3HRT PRN Shortness Of Breath Albuterol/Ipratropium 1 ampul 08/20/18 14:00 09/22/18 08:07 Duoneb *Not For Prn Use* IH Not Given Q6HRT LAMAR Lipase/Protease/Amylase 1 each 09/17/18 09:06 Alis Elizabeth 10,500 Unit FEEDTUBE PRN PRN For Clogged Feeding Tube Arformoterol Tartrate 15 mcg 08/18/18 20:00 09/22/18 07:38 Brovana Nebu IH 15 mcg Q12HRT LAMAR Administration Budesonide 0.5 mg 08/18/18 20:00 09/22/18 07:38 Pulmicort IH 0.5 mg Q12HRT LAMAR Administration Carvedilol 3.125 mg 09/20/18 10:00 09/21/18 21:50 Coreg PO 3.125 mg BID LAMAR Administration Clonidine HCl 0.2 mg 09/25/18 10:00 Catapres-Tts Patch TD Pearson LAMAR Famotidine 20 mg 09/05/18 10:00 09/21/18 21:50 Pepcid PO 20 mg BID LAMAR Administration Fondaparinux 7.5 mg 09/07/18 10:00 09/21/18 16:24 Arixtra SUB-Q 7.5 mg DAILY LAMAR Administration Furosemide 20 mg 09/18/18 12:00 09/21/18 10:45 Lasix IV 20 mg QDAY LAMAR Administration Hydralazine HCl 10 mg 08/19/18 13:59 09/19/18 02:27 Apresoline IV 10 mg Q3H PRN Administration Hydralazine HCl 25 mg 09/01/18 14:00 09/22/18 05:52 Apresoline PO 25 mg Q8HR LAMAR Administration Hydromorphone HCl 2 mg 09/06/18 12:00 09/22/18 05:53 Dilaudid PO 2 mg Q6HR LAMAR Administration Hydrophilic Ointment 1 applic 08/15/18 21:55 09/01/18 09:07 Vaseline Lip Therapy TP 1 applic Q2HR PRN Administration Dry Lips Fentanyl Citrate 2,000 mcg in 100 mls @ 4.765 mls/hr 09/02/18 11:00 09/16/18 07:40 Fentanyl Drip Premix IV Infused TITR LAMAR Titration Protocol 1 MCG/KG/HR Insulin Human Lispro 0 unit 09/04/18 18:00 09/22/18 06:00 Humalog SUB-Q Not Given Q6HR [facility] Protocol Metoclopramide HCl 5 mg 08/15/18 22:50 09/17/18 10:48 Reglan IV 5 mg Q6H PRN Administration Nausea And Vomiting Midazolam HCl 1 mg 09/07/18 09:23 09/19/18 03:01 Versed IV 1 mg Q4H PRN Administration AGITATION Ondansetron HCl 4 mg 08/15/18 22:12 08/31/18 17:52 Zofran IV 4 mg Q8H PRN Administration Nausea And Vomiting Potassium Chloride 40 meq 09/20/18 22:00 09/21/18 21:49 Potassium Chloride PO 40 meq QDAY@2200 LAMAR Administration Quetiapine Fumarate 100 mg 09/19/18 22:00 09/21/18 21:49 Seroquel PO 100 mg BID LAMAR Administration Quetiapine Fumarate 100 mg 09/19/18 22:00 09/21/18 21:50 Seroquel PO 100 mg QHS LAMAR Administration Simple Syrup 15 ml 09/17/18 09:06 Simple Syrup FEEDTUBE PRN PRN Hypoglycemia Simple Syrup 30 ml 09/17/18 09:06 Simple Syrup FEEDTUBE PRN PRN Hypoglycemia Sodium Bicarbonate 325 mg 09/17/18 09:06 Sodium Bicarbonate FEEDTUBE PRN PRN For Clogged Feeding Tube Sodium Chloride 10 ml 08/15/18 22:12 09/17/18 21:51 Sodium Chloride Flush Syringe 10 Ml IV 10 ml PRN PRN Administration LINE FLUSH
--- NOTE | 2018-09-22 08:29 | Progress Note ---
Assessment and Plan Cultures: 08/15/2018 blood culture: Camryn glabrata 1 of 4 08/15/2018 sputum culture: MSSA and Escherichia coli, wade susceptible 08/18/2018 blood culture: no growth 08/18/2018 urine culture: neg 08/22/2018 blood culture: no growth 08/25/2018 blood culture: no growth 09/02/2018 BAL cultures: resp almaz. Fungal and AFB pending: No growth thus far. 09/04/2018 blood culture: no growth thus far 09/04/2018 trach aspirate: no growth Fungitell was high (consistent with Candidemia), Aspergillus galactomannan negative. 09/13/2018 blood culture: no growth A/P: 68-year-old female with COPD, arthritis, history of multiple spinal surgeries was brought to the emergency room on 08/15/2018 with altered mental status: 1) Sepsis with septic shock: new fever 102.6 on 09/18 resolved. Etiology unclear. Blood cultures 09/13/2018 negative. Has indwelling PICC and Manrique. Now with persistent diarrhea. ? ?sinusitis. Recent CT abd showed new bilateral effusions, anasarca, and decreased bilateral consolidation. repeat UA neg. Repeat blood culture neg. C diff neg. 2) Recent Camryn glabrata fungemia: resolved. Etiology remains unclear. Patient without any history of indwelling PICC line, TPN or immunocompromised status. reported severe explosive diarrhea, N/V before admission after taken 4 days of amoxicillin for dental implant on 07/29/2018 and had a EGD / colonoscopy on 08/08/2018 at [place] by Dr Alcantara. I reviewed report - mild chronic gastritis, focal intestinal metaplasia, squamocolumnar mucosa with mild reflux-type changes, and tubular adenoma. -s/p fluconazole 800 mg loading dose then micafungin, s/p amphotericin D6 on 08/26 -serum Crypto negative. -08/15/2018 blood culture: Camryn glabrata -08/18/2018 blood culture: no growth -CTA chest showed limited study due to respiratory motion artifact. No evidence of pulmonary embolism. Abnormal bilateral lung consolidation which may represent pulmonary edema or pneumonia. Mild cardiomegaly. Indeterminant mediastinal lymph nodes. -CT abdomen showed extensive bilateral lower lobe pulmonary infiltrates, rectal tube and Manrique catheter noted. NG tube at gastric antrum. Left hip prosthesis Extensive degenerative changes noted lumbar spine -TTE EF 25-30% no vegetations -HIV neg/ CD4 1004 -reviewed CT chest abd done 01/05/2019 showed cholecystectomy, mild fatty liver, postoperative changes of lumbar laminectomy with non specific fluid, 9 mm LLL pulmonary nodule which was compared to previous CT and was stable. -CRP 10-->5 3) Acute renal failure: On admission: improved. 4) Acute respiratory failure: Back on the vent. Recently completed pneumonia treatment. Underwent bronch + BAL on 09/02/2018. Cultures with no growth thus far. On abx. CTA chest 09/06/2018 negative for PE, bilateral air space disease, no air bronchograms as such. 5) Right maxillary sinusitis: received empiric abx. 6) Acute encephalopathy: Likely multifactorial. CT head unremarkable for acute intracranial process. 7) Cardiomyopathy, LVEF 25-30% this admission. 8) H/O left hip prosthesis ? XR no effusion. CT with no enhancement 9) Left leg DVT: on anticoagulation. Hematology following. 10) Mild transaminitis: monitor for now. RUQ US unremarkable. 11) Diahrrea: C diff negative 12) Urinary retention: manrique was exchanged 09/17, patient had retention again so it could not be removed. Recs: monitor fever off antibiotics Will follow Yasmin Alvarez MD Infectious Diseases Distribution Center Supervisor [facility] ([facility]) M [phone] O [phone] Subjective Date of service: 09/22/18 Principal diagnosis: dvt - anemia Interval history: Remains on the vent via trach, alert, communicating, feels better following commands, no fever for 72h, noted diarrhea on rectal tube ROS: unable to obtain Objective - Exam Narrative Exam: Constitutional: alert follows commands communicating Head, Ears, Nose: Normocephalic, atraumatic. External ears, nose normal Eyes: Conjunctivae/corneas clear. No icterus. No ptosis. Neck:+trach no secretion Oral: clear OP Cardiovascular: RRR Respiratory: CTA gonzalez GI: Soft, non-tender;+PEG Musculoskeletal: gonzalez arm edema Skin: No rash or abscess Hem/Lymphatic: No palpable cervical or supraclavicular nodes. No lymphangitis Psych: no agitation Neurological: alert follows commands Rectal tube with diarrhea/ manrique - Constitutional Vitals: Vital Signs Temp Pulse Resp BP Pulse Ox 99.6 F 79 22 119/51 98 04/25/19 04:00 09/22/18 08:00 09/22/18 08:00 09/22/18 08:00 09/22/18 08:00 Temperature -Last 24 Hours Temperature 99.6 F Temperature 98.9 F Temperature 99.0 F Temperature 98.6 F Temperature 98.9 F - Labs CBC & Chem 7: 09/21/18 04:35 09/22/18 04:11 Labs: Abnormal lab results 09/21/18 09/22/18 Range/Units 11:30 04:11 BUN 21 H (7-17) mg/dL Creatinine 0.6 L (0.7-1.2) mg/dL POC Glucose 110 H (70-105)
--- NOTE | 2018-09-22 09:02 | Progress Note ---
Assessment and Plan Severe sepsis Intermittent fevers and leukocytosis, resolved Fungemia s/p antifungal therapy Acute hypoxic-hypercapnic respiratory failure on MVS, re-intubated s/p tracheostomy h/o COPD LLExt DVT on Fondaparinux Acute kidney injury, resolved Acute encephalopathy( toxic-metabolic) Aspiration pneumonia/CAP New onset cardiomyopathy, LVEF 25-30% this admission Previous echo 03/30/2016 at [facility] revealed normal LVEF Previous stress MPI 03/29/2016 at [facility] revealed no ischemia Abnormal ECG showing LBBB, chronic Anemia s/p PRBC -Recent EGD at [facility] 08/08/2018 revealing irregular Z line, gastritis and small hiatal hernia Recent colonoscopy at [facility] 08/08/2018 revealing sigmoid polyp, transverse colon polyps, inflamed hemorrhoids and diverticulosis E.coli/Staph pneumonia Thrombocytopenia resolved Hypernatremia, resolved Hypokalemia , replete -Continue with MVS -Trach care, airway clearance, secretion management -VAP bundle addressed -Aspiration precautions -Weaning as tolerated PSV trials, start ATP as tolerated -ABG and CXR prn - Agitation and analgesia management -Monitor renal indices while on gentle diuresis -Cardioprotective measures -Stress ulcer prophylaxis -Accuchecks with glycemic control. Target glucose of 140-180 mg/dL -Continue bronchodilators with pulmonary hygiene per RT -Maintenance of sleep -wake cycle -Mobility program, discussed with PT at the bedside -Influenza and pneumonia vaccination per protocol ..care plan discussed at length with RN/RT at the bedside PROGNOSIS :FAIR CONDITION: CRITICAL CODE STATUS: FULL CODE The high probability of a clinically significant, sudden or life-threatening deterioration of the [respiratory, cardiovascular, renal] system(s) required my full and direct attention, intervention and personal management. The aggregate critical care time was [31] minutes without overlap. Time includes spent on; [x] Data Review and interpretation [x] Patient assessment and monitoring of vital signs [x] Documentation [x] Medication orders and management Subjective Date of service: 09/22/18 Principal diagnosis: dvt - anemia Interval history: Follow up: Aspiration PNA, Abnormal CXR, Hypotension, Acute renal failure, Acute encephaloapthy, Acute hypoxemic respiratory failure on MVS Seen and examined. Vitals, labs, medications, chart and imaging reviewed. 24 hours events reviewed. No fevers, no vomiting, agitation much improved. More awake and alert, tracking voice, obeying simple commands s/p tracheostomy to MVS, tolerating PSV s/p PEG placement Objective Vital Signs - 12hr 09/21/18 09/21/18 09/21/18 21:36 21:50 22:00 Temperature Pulse Rate 81 80 80 Pulse Rate [ Anterior Bilateral Throughout] Pulse Rate [ Anterior Bilateral] Pulse Rate [ From Monitor] Respiratory 26 H 20 Rate Respiratory Rate [Anterior Bilateral Throughout] Respiratory Rate [Anterior Bilateral] Respiratory Rate [ Generalized] Blood Pressure 110/56 129/61 O2 Sat by Pulse 98 97 Oximetry O2 Sat by Pulse Oximetry [ Assessment] 09/21/18 09/21/18 09/21/18 22:19 22:30 23:00 Temperature Pulse Rate 82 84 82 Pulse Rate [ Anterior Bilateral Throughout] Pulse Rate [ Anterior Bilateral] Pulse Rate [ From Monitor] Respiratory 26 H 25 H 23 Rate Respiratory Rate [Anterior Bilateral Throughout] Respiratory Rate [Anterior Bilateral] Respiratory Rate [ Generalized] Blood Pressure 129/61 136/60 130/57 O2 Sat by Pulse 97 97 97 Oximetry O2 Sat by Pulse Oximetry [ Assessment] 09/21/18 09/21/18 09/21/18 23:12 23:30 23:48 Temperature Pulse Rate 79 76 77 Pulse Rate [ Anterior Bilateral Throughout] Pulse Rate [ Anterior Bilateral] Pulse Rate [ From Monitor] Respiratory 27 H Rate Respiratory Rate [Anterior Bilateral Throughout] Respiratory Rate [Anterior Bilateral] Respiratory Rate [ Generalized] Blood Pressure 130/57 134/51 134/51 O2 Sat by Pulse 97 96 Oximetry O2 Sat by Pulse Oximetry [ Assessment] 09/21/18 09/22/18 09/22/18 23:54 00:00 00:30 Temperature 98.9 F Pulse Rate 78 78 Pulse Rate [ Anterior Bilateral Throughout] Pulse Rate [ Anterior Bilateral] Pulse Rate [ 74 From Monitor] Respiratory 24 16 22 Rate Respiratory Rate [Anterior Bilateral Throughout] Respiratory Rate [Anterior Bilateral] Respiratory 23 Rate [ Generalized] Blood Pressure 122/58 125/54 O2 Sat by Pulse 97 97 Oximetry O2 Sat by Pulse Oximetry [ Assessment] 09/22/18 09/22/18 09/22/18 01:00 01:30 02:00 Temperature Pulse Rate 73 74 70 Pulse Rate [ Anterior Bilateral Throughout] Pulse Rate [ 78 Anterior Bilateral] Pulse Rate [ From Monitor] Respiratory 28 H 26 H 23 Rate Respiratory Rate [Anterior Bilateral Throughout] Respiratory 28 H Rate [Anterior Bilateral] Respiratory Rate [ Generalized] Blood Pressure 119/56 128/56 128/50 O2 Sat by Pulse 99 100 100 Oximetry O2 Sat by Pulse Oximetry [ Assessment] 09/22/18 09/22/18 09/22/18 02:18 02:30 03:00 Temperature Pulse Rate 68 75 Pulse Rate [ Anterior Bilateral Throughout] Pulse Rate [ Anterior Bilateral] Pulse Rate [ From Monitor] Respiratory 21 11 L Rate Respiratory Rate [Anterior Bilateral Throughout] Respiratory Rate [Anterior Bilateral] Respiratory Rate [ Generalized] Blood Pressure 121/48 109/53 O2 Sat by Pulse 99 98 Oximetry O2 Sat by Pulse 97 Oximetry [ Assessment] 09/22/18 09/22/18 09/22/18 03:30 04:00 04:30 Temperature 99.6 F Pulse Rate 79 75 75 Pulse Rate [ Anterior Bilateral Throughout] Pulse Rate [ Anterior Bilateral] Pulse Rate [ 78 From Monitor] Respiratory 10 L 21 19 Rate Respiratory Rate [Anterior Bilateral Throughout] Respiratory Rate [Anterior Bilateral] Respiratory Rate [ Generalized] Blood Pressure 117/55 117/55 117/55 O2 Sat by Pulse 98 97 97 Oximetry O2 Sat by Pulse Oximetry [ Assessment] 09/22/18 09/22/18 09/22/18 05:01 05:31 05:52 Temperature Pulse Rate 74 75 Pulse Rate [ Anterior Bilateral Throughout] Pulse Rate [ Anterior Bilateral] Pulse Rate [ From Monitor] Respiratory 22 Rate Respiratory Rate [Anterior Bilateral Throughout] Respiratory Rate [Anterior Bilateral] Respiratory Rate [ Generalized] Blood Pressure 117/55 117/55 124/56 O2 Sat by Pulse 98 99 Oximetry O2 Sat by Pulse Oximetry [ Assessment] 09/22/18 09/22/18 09/22/18 05:53 06:00 06:30 Temperature Pulse Rate 73 72 Pulse Rate [ Anterior Bilateral Throughout] Pulse Rate [ Anterior Bilateral] Pulse Rate [ From Monitor] Respiratory 20 22 22 Rate Respiratory Rate [Anterior Bilateral Throughout] Respiratory Rate [Anterior Bilateral] Respiratory Rate [ Generalized] Blood Pressure 124/56 123/57 O2 Sat by Pulse 99 99 Oximetry O2 Sat by Pulse Oximetry [ Assessment] 09/22/18 09/22/18 09/22/18 07:00 07:30 07:38 Temperature Pulse Rate 73 72 Pulse Rate [ 78 Anterior Bilateral Throughout] Pulse Rate [ 78 Anterior Bilateral] Pulse Rate [ From Monitor] Respiratory 18 23 Rate Respiratory 23 Rate [Anterior Bilateral Throughout] Respiratory 23 Rate [Anterior Bilateral] Respiratory Rate [ Generalized] Blood Pressure 130/57 118/46 O2 Sat by Pulse 99 98 Oximetry O2 Sat by Pulse Oximetry [ Assessment] 09/22/18 09/22/18 09/22/18 07:50 07:59 08:00 Temperature Pulse Rate 78 Pulse Rate [ 79 Anterior Bilateral Throughout] Pulse Rate [ 79 Anterior Bilateral] Pulse Rate [ 79 From Monitor] Respiratory 11 L 22 Rate Respiratory 22 Rate [Anterior Bilateral Throughout] Respiratory 22 Rate [Anterior Bilateral] Respiratory 22 Rate [ Generalized] Blood Pressure 118/46 119/51 O2 Sat by Pulse 100 98 Oximetry O2 Sat by Pulse Oximetry [ Assessment] Constitutional: appears uncomfortable, other (elderly looking CF, normocephalic and atraumatic) Eyes: non-icteric ENT: oropharynx moist, other (s/p tracheostomy) Neck: supple, no lymphadenopathy, no JVD, other (no thyromegaly) Effort: mildly labored Ascultation: Bilateral: diminished breath sounds, rales, rhonchi (improved) Percussion: Bilateral: not dull Cardiovascular: regular rate and rhythm Gastrointestinal: normoactive bowel sounds, soft, non-tender, non-distended, other (s/p PEG) Integumentary: normal Extremities: no cyanosis, no ischemia or petechiae, edema (Left lower extremity) Neurologic: non-focal exam (grossly), pupils equal and round, motor strength normal and Psychiatric: mood appropriate, affect normal CBC and BMP: 09/21/18 04:35 09/22/18 04:11 ABG, PT/INR, D-dimer: ABG POC ABG pH 7.391 (7.35-7.45) 09/22/18 05:50 POC ABG pCO2 36.3 (35-45) 09/22/18 05:50 POC ABG pO2 95 (80-105) 09/22/18 05:50 POC ABG HCO3 22.0 (22-26 mml/L) 09/22/18 05:50 POC ABG Total CO2 23 (23-27mmol/L) 09/22/18 05:50 POC ABG O2 Sat 97 09/22/18 05:50 PT/INR, D-dimer PT 14.2 Sec. (12.2-14.9) 04/17/19 04:55 INR 1.04 (0.87-1.13) 09/14/18 04:55 D-Dimer 2768.33 ng/mlDDU (0-234) H 08/15/18 18:31 Abnormal lab findings: Abnormal Labs 08/15/18 08/15/18 08/15/18 17:52 17:52 17:52 WBC 12.7 H RBC 3.25 L Hgb Hct RDW Plt Count Lymph % (Auto) [place] % (Auto) Lymph # [place] # Seg Neutrophils % Seg Neuts % (Manual) Lymphocytes % (Manual) 6.0 L Nucleated RBC % Seg Neutrophils # Seg Neutrophils # Man Lymphocytes # (Manual) 0.8 L D-Dimer POC ABG pH POC ABG pCO2 POC ABG pO2 VBG pH Sodium Potassium 3.4 L Chloride 94.6 L Carbon Dioxide 17 L BUN 67 H Creatinine 3.5 H Glucose 131 H POC Glucose Hemoglobin A1c Lactic Acid 5.20 H* Calcium 7.6 L Phosphorus Magnesium Iron TIBC AST 887 H ALT 316 H Troponin T C-Reactive Protein Total Protein Albumin 3.1 L Triglycerides LDL Cholesterol Direct HDL Cholesterol Urine pH Urine WBC (Auto) Vancomycin Trough Salicylates Acetaminophen % CD3 Cells % CD19 Cells Absolute CD19 Count Miscellaneous Test Crossmatch 08/15/18 08/15/18 08/15/18 18:11 18:19 18:31 WBC RBC Hgb Hct RDW Plt Count Lymph % (Auto) [place] % (Auto) Lymph # [place] # Seg Neutrophils % Seg Neuts % (Manual) Lymphocytes % (Manual) Nucleated RBC % Seg Neutrophils # Seg Neutrophils # Man Lymphocytes # (Manual) D-Dimer 2768.33 H POC ABG pH 7.173 L POC ABG pCO2 47.8 H POC ABG pO2 177 H VBG pH 7.187 L* Sodium Potassium Chloride Carbon Dioxide BUN Creatinine Glucose POC Glucose Hemoglobin A1c Lactic Acid Calcium Phosphorus Magnesium Iron TIBC AST ALT Troponin T C-Reactive Protein Total Protein Albumin Triglycerides LDL Cholesterol Direct HDL Cholesterol Urine pH Urine WBC (Auto) Vancomycin Trough Salicylates Acetaminophen % CD3 Cells % CD19 Cells Absolute CD19 Count Miscellaneous Test Crossmatch 08/15/18 08/15/18 08/15/18 18:31 19:14 19:14 WBC RBC Hgb Hct RDW Plt Count Lymph % (Auto) [place] % (Auto) Lymph # [place] # Seg Neutrophils % Seg Neuts % (Manual) Lymphocytes % (Manual) Nucleated RBC % Seg Neutrophils # Seg Neutrophils # Man Lymphocytes # (Manual) D-Dimer POC ABG pH POC ABG pCO2 POC ABG pO2 VBG pH Sodium Potassium Chloride Carbon Dioxide BUN Creatinine Glucose POC Glucose Hemoglobin A1c Lactic Acid 2.70 H* Calcium Phosphorus Magnesium Iron TIBC AST ALT Troponin T 0.454 H* C-Reactive Protein Total Protein Albumin Triglycerides 356 H LDL Cholesterol Direct 4 L HDL Cholesterol 10 L Urine pH Urine WBC (Auto) Vancomycin Trough Salicylates < 0.3 L Acetaminophen % CD3 Cells % CD19 Cells Absolute CD19 Count Miscellaneous Test Crossmatch 08/15/18 08/15/18 08/15/18 19:14 19:15 23:09 WBC RBC Hgb Hct RDW Plt Count Lymph % (Auto) [place] % (Auto) Lymph # [place] # Seg Neutrophils % Seg Neuts % (Manual) Lymphocytes % (Manual) Nucleated RBC % Seg Neutrophils # Seg Neutrophils # Man Lymphocytes # (Manual) D-Dimer POC ABG pH POC ABG pCO2 POC ABG pO2 VBG pH Sodium Potassium Chloride Carbon Dioxide BUN Creatinine Glucose POC Glucose Hemoglobin A1c Lactic Acid 3.20 H* Calcium Phosphorus Magnesium Iron TIBC AST ALT Troponin T C-Reactive Protein Total Protein Albumin Triglycerides LDL Cholesterol Direct HDL Cholesterol Urine pH Urine WBC (Auto) 17.0 H Vancomycin Trough Salicylates Acetaminophen < 5.0 L % CD3 Cells % CD19 Cells Absolute CD19 Count Miscellaneous Test Crossmatch 08/15/18 08/16/18 08/16/18 23:09 01:41 05:38 WBC RBC 3.07 L Hgb 9.8 L Hct 28.7 L RDW Plt Count Lymph % (Auto) [place] % (Auto) Lymph # [place] # Seg Neutrophils % Seg Neuts % (Manual) 84.0 H Lymphocytes % (Manual) 6.0 L Nucleated RBC % 4.0 H Seg Neutrophils # Seg Neutrophils # Man Lymphocytes # (Manual) 0.5 L D-Dimer POC ABG pH 7.323 L POC ABG pCO2 34.7 L POC ABG pO2 78 L VBG pH Sodium Potassium Chloride Carbon Dioxide BUN Creatinine Glucose POC Glucose Hemoglobin A1c 6.4 H Lactic Acid Calcium Phosphorus Magnesium Iron TIBC AST ALT Troponin T C-Reactive Protein Total Protein Albumin Triglycerides LDL Cholesterol Direct HDL Cholesterol Urine pH Urine WBC (Auto) Vancomycin Trough Salicylates Acetaminophen % CD3 Cells % CD19 Cells Absolute CD19 Count Miscellaneous Test Crossmatch 08/16/18 08/16/18 08/17/18 05:38 22:43 03:42 WBC RBC Hgb Hct RDW Plt Count Lymph % (Auto) [place] % (Auto) Lymph # [place] # Seg Neutrophils % Seg Neuts % (Manual) Lymphocytes % (Manual) Nucleated RBC % Seg Neutrophils # Seg Neutrophils # Man Lymphocytes # (Manual) D-Dimer POC ABG pH POC ABG pCO2 POC ABG pO2 VBG pH Sodium Potassium 2.9 L* 3.1 L 2.9 L* Chloride 108.8 H 111.9 H Carbon Dioxide 17 L 19 L 21 L BUN 62 H 40 H 33 H Creatinine 2.0 H Glucose 139 H 145 H POC Glucose Hemoglobin A1c Lactic Acid Calcium 7.8 L 8.3 L Phosphorus 1.50 L Magnesium Iron TIBC AST 619 H ALT 353 H Troponin T C-Reactive Protein Total Protein 6.1 L Albumin 2.8 L Triglycerides LDL Cholesterol Direct HDL Cholesterol Urine pH Urine WBC (Auto) Vancomycin Trough Salicylates Acetaminophen % CD3 Cells % CD19 Cells Absolute CD19 Count Miscellaneous Test Crossmatch 08/17/18 08/17/18 08/18/18 11:02 16:42 03:28 WBC RBC Hgb Hct RDW Plt Count Lymph % (Auto) [place] % (Auto) Lymph # [place] # Seg Neutrophils % Seg Neuts % (Manual) Lymphocytes % (Manual) Nucleated RBC % Seg Neutrophils # Seg Neutrophils # Man Lymphocytes # (Manual) D-Dimer POC ABG pH 7.483 H 7.499 H POC ABG pCO2 POC ABG pO2 VBG pH Sodium 147 H Potassium 3.2 L Chloride 115.8 H Carbon Dioxide BUN 23 H Creatinine Glucose 121 H POC Glucose Hemoglobin A1c Lactic Acid Calcium 8.1 L Phosphorus 2.30 L D Magnesium Iron TIBC AST ALT Troponin T C-Reactive Protein Total Protein Albumin Triglycerides LDL Cholesterol Direct HDL Cholesterol Urine pH Urine WBC (Auto) Vancomycin Trough Salicylates Acetaminophen % CD3 Cells % CD19 Cells Absolute CD19 Count Miscellaneous Test Crossmatch 08/18/18 08/18/18 08/18/18 04:10 13:39 13:39 WBC RBC Hgb Hct RDW Plt Count Lymph % (Auto) [place] % (Auto) Lymph # [place] # Seg Neutrophils % Seg Neuts % (Manual) Lymphocytes % (Manual) Nucleated RBC % Seg Neutrophils # Seg Neutrophils # Man Lymphocytes # (Manual) D-Dimer POC ABG pH POC ABG pCO2 POC ABG pO2 VBG pH Sodium 147 H Potassium 3.3 L Chloride 111.9 H Carbon Dioxide BUN 21 H Creatinine Glucose 113 H POC Glucose Hemoglobin A1c Lactic Acid Calcium Phosphorus 1.50 L D Magnesium Iron TIBC AST ALT Troponin T 0.317 H* D C-Reactive Protein 10.70 H Total Protein Albumin Triglycerides LDL Cholesterol Direct HDL Cholesterol Urine pH Urine WBC (Auto) Vancomycin Trough Salicylates Acetaminophen % CD3 Cells % CD19 Cells Absolute CD19 Count Miscellaneous Test Crossmatch 08/18/18 08/19/18 08/19/18 16:51 03:47 04:15 WBC RBC Hgb Hct RDW Plt Count Lymph % (Auto) [place] % (Auto) Lymph # [place] # Seg Neutrophils % Seg Neuts % (Manual) Lymphocytes % (Manual) Nucleated RBC % Seg Neutrophils # Seg Neutrophils # Man Lymphocytes # (Manual) D-Dimer POC ABG pH 7.454 H 7.482 H POC ABG pCO2 POC ABG pO2 65 L VBG pH Sodium 154 H Potassium 3.3 L Chloride 115.1 H Carbon Dioxide BUN 19 H Creatinine Glucose 117 H POC Glucose Hemoglobin A1c Lactic Acid Calcium 7.8 L Phosphorus Magnesium Iron TIBC AST ALT Troponin T C-Reactive Protein Total Protein Albumin Triglycerides LDL Cholesterol Direct HDL Cholesterol Urine pH Urine WBC (Auto) Vancomycin Trough Salicylates Acetaminophen % CD3 Cells % CD19 Cells Absolute CD19 Count Miscellaneous Test Crossmatch 08/19/18 08/19/18 08/20/18 14:32 16:18 03:51 WBC RBC Hgb Hct RDW Plt Count Lymph % (Auto) [place] % (Auto) Lymph # [place] # Seg Neutrophils % Seg Neuts % (Manual) Lymphocytes % (Manual) Nucleated RBC % Seg Neutrophils # Seg Neutrophils # Man Lymphocytes # (Manual) D-Dimer POC ABG pH 7.483 H POC ABG pCO2 33.4 L POC ABG pO2 51 L 74 L VBG pH Sodium Potassium Chloride Carbon Dioxide BUN Creatinine Glucose POC Glucose Hemoglobin A1c Lactic Acid Calcium Phosphorus Magnesium Iron TIBC AST ALT Troponin T C-Reactive Protein Total Protein Albumin Triglycerides LDL Cholesterol Direct HDL Cholesterol Urine pH Urine WBC (Auto) Vancomycin Trough Salicylates Acetaminophen % CD3 Cells 44 L % CD19 Cells 41 H Absolute CD19 Count 1290 H Miscellaneous Test Crossmatch 08/20/18 08/21/18 08/21/18 05:25 03:54 05:45 WBC 24.1 H RBC 2.83 L Hgb 8.8 L Hct 26.7 L RDW 15.7 H Plt Count 127 L Lymph % (Auto) [place] % (Auto) Lymph # [place] # Seg Neutrophils % Seg Neuts % (Manual) 94.0 H Lymphocytes % (Manual) 4.0 L Nucleated RBC % 1.0 H Seg Neutrophils # Seg Neutrophils # Man 22.7 H Lymphocytes # (Manual) 1.0 L D-Dimer POC ABG pH POC ABG pCO2 31.9 L POC ABG pO2 66 L VBG pH Sodium 146 H D Potassium Chloride 111.2 H Carbon Dioxide BUN 24 H Creatinine Glucose 141 H POC Glucose Hemoglobin A1c Lactic Acid Calcium 8.1 L Phosphorus Magnesium Iron TIBC AST 65 H ALT 104 H Troponin T C-Reactive Protein Total Protein 6.2 L Albumin 2.6 L Triglycerides LDL Cholesterol Direct HDL Cholesterol Urine pH Urine WBC (Auto) Vancomycin Trough Salicylates Acetaminophen % CD3 Cells % CD19 Cells Absolute CD19 Count Miscellaneous Test Crossmatch 08/21/18 08/22/18 08/22/18 05:45 06:20 06:45 WBC RBC Hgb Hct RDW Plt Count Lymph % (Auto) [place] % (Auto) Lymph # [place] # Seg Neutrophils % Seg Neuts % (Manual) Lymphocytes % (Manual) Nucleated RBC % Seg Neutrophils # Seg Neutrophils # Man Lymphocytes # (Manual) D-Dimer POC ABG pH POC ABG pCO2 32.9 L POC ABG pO2 VBG pH Sodium Potassium 3.5 L Chloride 109.4 H 112.4 H Carbon Dioxide 21 L 20 L BUN 50 H 61 H Creatinine 2.0 H D 1.9 H Glucose 144 H 154 H POC Glucose Hemoglobin A1c Lactic Acid Calcium 7.6 L 7.8 L Phosphorus Magnesium Iron TIBC AST ALT Troponin T C-Reactive Protein Total Protein 5.3 L Albumin 2.1 L Triglycerides LDL Cholesterol Direct HDL Cholesterol Urine pH Urine WBC (Auto) Vancomycin Trough Salicylates Acetaminophen % CD3 Cells % CD19 Cells Absolute CD19 Count Miscellaneous Test Crossmatch 08/22/18 08/22/18 08/22/18 06:45 15:29 18:40 WBC RBC Hgb Hct RDW Plt Count Lymph % (Auto) [place] % (Auto) Lymph # [place] # Seg Neutrophils % Seg Neuts % (Manual) Lymphocytes % (Manual) Nucleated RBC % Seg Neutrophils # Seg Neutrophils # Man Lymphocytes # (Manual) D-Dimer POC ABG pH POC ABG pCO2 POC ABG pO2 VBG pH Sodium Potassium Chloride Carbon Dioxide BUN Creatinine Glucose POC Glucose 169 H Hemoglobin A1c Lactic Acid Calcium Phosphorus Magnesium Iron TIBC AST ALT Troponin T C-Reactive Protein 4.70 H Total Protein Albumin Triglycerides 197 H LDL Cholesterol Direct HDL Cholesterol Urine pH Urine WBC (Auto) Vancomycin Trough Salicylates Acetaminophen % CD3 Cells % CD19 Cells Absolute CD19 Count Miscellaneous Test Crossmatch 08/23/18 08/23/18 08/23/18 03:59 21:19 Unknown WBC 12.1 H RBC 2.29 L Hgb 7.1 L Hct 21.7 L RDW 15.7 H Plt Count 106 L Lymph % (Auto) [place] % (Auto) Lymph # [place] # Seg Neutrophils % Seg Neuts % (Manual) 92.0 H Lymphocytes % (Manual) 4.0 L Nucleated RBC % Seg Neutrophils # Seg Neutrophils # Man 11.1 H Lymphocytes # (Manual) 0.5 L D-Dimer POC ABG pH 7.306 L POC ABG pCO2 31.3 L POC ABG pO2 119 H 75 L VBG pH Sodium Potassium Chloride Carbon Dioxide BUN Creatinine Glucose POC Glucose Hemoglobin A1c Lactic Acid Calcium Phosphorus Magnesium Iron TIBC AST ALT Troponin T C-Reactive Protein Total Protein Albumin Triglycerides LDL Cholesterol Direct HDL Cholesterol Urine pH Urine WBC (Auto) Vancomycin Trough Salicylates Acetaminophen % CD3 Cells % CD19 Cells Absolute CD19 Count Miscellaneous Test Crossmatch 08/23/18 08/24/18 08/24/18 Unknown 04:18 08:30 WBC 12.8 H RBC 2.24 L Hgb 7.0 L Hct 21.1 L RDW Plt Count Lymph % (Auto) [place] % (Auto) Lymph # [place] # Seg Neutrophils % Seg Neuts % (Manual) 93.0 H Lymphocytes % (Manual) 6.0 L Nucleated RBC % Seg Neutrophils # Seg Neutrophils # Man 11.9 H Lymphocytes # (Manual) 0.8 L D-Dimer POC ABG pH POC ABG pCO2 POC ABG pO2 78 L VBG pH Sodium Potassium Chloride 115.7 H Carbon Dioxide 21 L BUN 64 H Creatinine 2.0 H Glucose 149 H POC Glucose Hemoglobin A1c Lactic Acid Calcium 7.5 L Phosphorus Magnesium Iron TIBC AST ALT Troponin T C-Reactive Protein Total Protein 4.8 L Albumin 2.0 L Triglycerides LDL Cholesterol Direct HDL Cholesterol Urine pH Urine WBC (Auto) Vancomycin Trough Salicylates Acetaminophen % CD3 Cells % CD19 Cells Absolute CD19 Count Miscellaneous Test Crossmatch 08/24/18 08/24/18 08/24/18 08:30 17:44 18:28 WBC RBC Hgb Hct RDW Plt Count Lymph % (Auto) [place] % (Auto) Lymph # [place] # Seg Neutrophils % Seg Neuts % (Manual) Lymphocytes % (Manual) Nucleated RBC % Seg Neutrophils # Seg Neutrophils # Man Lymphocytes # (Manual) D-Dimer POC ABG pH 7.474 H POC ABG pCO2 POC ABG pO2 61 L VBG pH Sodium Potassium Chloride 108.3 H Carbon Dioxide 20 L BUN 65 H Creatinine 2.0 H Glucose 167 H POC Glucose 164 H Hemoglobin A1c Lactic Acid Calcium 7.7 L Phosphorus Magnesium Iron TIBC AST ALT Troponin T C-Reactive Protein Total Protein 5.3 L Albumin 2.2 L Triglycerides LDL Cholesterol Direct HDL Cholesterol Urine pH Urine WBC (Auto) Vancomycin Trough Salicylates Acetaminophen % CD3 Cells % CD19 Cells Absolute CD19 Count Miscellaneous Test Crossmatch 08/25/18 08/25/18 08/25/18 03:35 05:20 05:20 WBC RBC Hgb 6.7 L Hct 21.0 L RDW Plt Count Lymph % (Auto) [place] % (Auto) Lymph # [place] # Seg Neutrophils % Seg Neuts % (Manual) Lymphocytes % (Manual) Nucleated RBC % Seg Neutrophils # Seg Neutrophils # Man Lymphocytes # (Manual) D-Dimer POC ABG pH POC ABG pCO2 POC ABG pO2 79 L VBG pH Sodium Potassium Chloride Carbon Dioxide 21 L BUN 71 H Creatinine 3.1 H D Glucose 171 H POC Glucose Hemoglobin A1c Lactic Acid Calcium 7.5 L Phosphorus Magnesium Iron TIBC AST ALT Troponin T C-Reactive Protein Total Protein Albumin Triglycerides LDL Cholesterol Direct HDL Cholesterol Urine pH Urine WBC (Auto) Vancomycin Trough Salicylates Acetaminophen % CD3 Cells % CD19 Cells Absolute CD19 Count Miscellaneous Test Crossmatch 08/25/18 08/25/18 08/25/18 05:20 08:52 12:42 WBC RBC Hgb Hct RDW Plt Count Lymph % (Auto) [place] % (Auto) Lymph # [place] # Seg Neutrophils % Seg Neuts % (Manual) Lymphocytes % (Manual) Nucleated RBC % Seg Neutrophils # Seg Neutrophils # Man Lymphocytes # (Manual) D-Dimer POC ABG pH POC ABG pCO2 POC ABG pO2 VBG pH Sodium Potassium Chloride Carbon Dioxide BUN Creatinine Glucose POC Glucose 166 H Hemoglobin A1c Lactic Acid Calcium Phosphorus Magnesium Iron TIBC AST ALT Troponin T C-Reactive Protein 5.00 H Total Protein Albumin Triglycerides LDL Cholesterol Direct HDL Cholesterol Urine pH Urine WBC (Auto) Vancomycin Trough Salicylates Acetaminophen % CD3 Cells % CD19 Cells Absolute CD19 Count Miscellaneous Test Crossmatch See Detail 08/25/18 08/26/18 08/26/18 18:05 00:13 04:53 WBC RBC Hgb Hct RDW Plt Count Lymph % (Auto) [place] % (Auto) Lymph # [place] # Seg Neutrophils % Seg Neuts % (Manual) Lymphocytes % (Manual) Nucleated RBC % Seg Neutrophils # Seg Neutrophils # Man Lymphocytes # (Manual) D-Dimer POC ABG pH POC ABG pCO2 30.9 L POC ABG pO2 70 L VBG pH Sodium Potassium Chloride Carbon Dioxide BUN Creatinine Glucose POC Glucose 121 H 164 H Hemoglobin A1c Lactic Acid Calcium Phosphorus Magnesium Iron TIBC AST ALT Troponin T C-Reactive Protein Total Protein Albumin Triglycerides LDL Cholesterol Direct HDL Cholesterol Urine pH Urine WBC (Auto) Vancomycin Trough Salicylates Acetaminophen % CD3 Cells % CD19 Cells Absolute CD19 Count Miscellaneous Test Crossmatch 08/26/18 08/26/18 08/26/18 05:42 06:00 06:00 WBC RBC 2.62 L Hgb 7.7 L Hct 23.0 L RDW 22.0 H Plt Count Lymph % (Auto) 6.3 L [place] % (Auto) Lymph # 0.7 L [place] # Seg Neutrophils % 88.1 H Seg Neuts % (Manual) Lymphocytes % (Manual) Nucleated RBC % Seg Neutrophils # 9.6 H Seg Neutrophils # Man Lymphocytes # (Manual) D-Dimer POC ABG pH POC ABG pCO2 POC ABG pO2 VBG pH Sodium Potassium Chloride Carbon Dioxide 21 L BUN 70 H Creatinine 3.3 H Glucose 146 H POC Glucose 149 H Hemoglobin A1c Lactic Acid Calcium 8.0 L Phosphorus Magnesium Iron TIBC AST ALT Troponin T C-Reactive Protein Total Protein Albumin Triglycerides LDL Cholesterol Direct HDL Cholesterol Urine pH Urine WBC (Auto) Vancomycin Trough Salicylates Acetaminophen % CD3 Cells % CD19 Cells Absolute CD19 Count Miscellaneous Test Crossmatch 08/26/18 08/26/18 08/27/18 11:37 23:54 04:35 WBC RBC 2.50 L Hgb 7.6 L Hct 22.3 L RDW 21.8 H Plt Count Lymph % (Auto) 7.3 L [place] % (Auto) Lymph # 0.7 L [place] # Seg Neutrophils % 85.6 H Seg Neuts % (Manual) Lymphocytes % (Manual) Nucleated RBC % Seg Neutrophils # 8.6 H Seg Neutrophils # Man Lymphocytes # (Manual) D-Dimer POC ABG pH POC ABG pCO2 POC ABG pO2 VBG pH Sodium Potassium Chloride Carbon Dioxide BUN Creatinine Glucose POC Glucose 183 H 150 H Hemoglobin A1c Lactic Acid Calcium Phosphorus Magnesium Iron TIBC AST ALT Troponin T C-Reactive Protein Total Protein Albumin Triglycerides LDL Cholesterol Direct HDL Cholesterol Urine pH Urine WBC (Auto) Vancomycin Trough Salicylates Acetaminophen % CD3 Cells % CD19 Cells Absolute CD19 Count Miscellaneous Test Crossmatch 08/27/18 08/27/18 08/28/18 04:35 12:17 04:43 WBC RBC Hgb Hct RDW Plt Count Lymph % (Auto) [place] % (Auto) Lymph # [place] # Seg Neutrophils % Seg Neuts % (Manual) Lymphocytes % (Manual) Nucleated RBC % Seg Neutrophils # Seg Neutrophils # Man Lymphocytes # (Manual) D-Dimer POC ABG pH POC ABG pCO2 32.1 L 33.8 L POC ABG pO2 68 L 78 L VBG pH Sodium Potassium Chloride Carbon Dioxide 19 L BUN 67 H Creatinine 2.9 H Glucose 155 H POC Glucose Hemoglobin A1c Lactic Acid Calcium Phosphorus 4.70 H Magnesium Iron TIBC AST ALT Troponin T C-Reactive Protein Total Protein Albumin Triglycerides LDL Cholesterol Direct HDL Cholesterol Urine pH Urine WBC (Auto) Vancomycin Trough Salicylates Acetaminophen % CD3 Cells % CD19 Cells Absolute CD19 Count Miscellaneous Test Crossmatch 08/28/18 08/28/18 08/28/18 05:03 05:20 05:20 WBC RBC 2.43 L Hgb 7.4 L Hct 21.8 L RDW 20.8 H Plt Count Lymph % (Auto) 7.6 L [place] % (Auto) 8.7 H Lymph # 0.7 L [place] # Seg Neutrophils % 82.9 H Seg Neuts % (Manual) Lymphocytes % (Manual) Nucleated RBC % Seg Neutrophils # Seg Neutrophils # Man Lymphocytes # (Manual) D-Dimer POC ABG pH POC ABG pCO2 POC ABG pO2 VBG pH Sodium Potassium Chloride 107.8 H Carbon Dioxide 21 L BUN 55 H Creatinine 2.0 H Glucose 177 H POC Glucose 160 H Hemoglobin A1c Lactic Acid Calcium Phosphorus Magnesium Iron TIBC AST ALT Troponin T C-Reactive Protein Total Protein Albumin Triglycerides LDL Cholesterol Direct HDL Cholesterol Urine pH Urine WBC (Auto) Vancomycin Trough Salicylates Acetaminophen % CD3 Cells % CD19 Cells Absolute CD19 Count Miscellaneous Test Crossmatch 08/28/18 08/28/18 08/28/18 12:18 18:58 22:31 WBC RBC Hgb Hct RDW Plt Count Lymph % (Auto) [place] % (Auto) Lymph # [place] # Seg Neutrophils % Seg Neuts % (Manual) Lymphocytes % (Manual) Nucleated RBC % Seg Neutrophils # Seg Neutrophils # Man Lymphocytes # (Manual) D-Dimer POC ABG pH POC ABG pCO2 34.4 L POC ABG pO2 67 L VBG pH Sodium Potassium Chloride Carbon Dioxide BUN Creatinine Glucose POC Glucose 164 H 149 H Hemoglobin A1c Lactic Acid Calcium Phosphorus Magnesium Iron TIBC AST ALT Troponin T C-Reactive Protein Total Protein Albumin Triglycerides LDL Cholesterol Direct HDL Cholesterol Urine pH Urine WBC (Auto) Vancomycin Trough Salicylates Acetaminophen % CD3 Cells % CD19 Cells Absolute CD19 Count Miscellaneous Test Crossmatch 08/28/18 08/29/18 08/29/18 23:33 05:25 05:25 WBC RBC 2.30 L Hgb 7.0 L Hct 20.9 L RDW 21.0 H Plt Count Lymph % (Auto) 11.5 L [place] % (Auto) 9.2 H Lymph # 0.8 L [place] # Seg Neutrophils % 78.8 H Seg Neuts % (Manual) Lymphocytes % (Manual) Nucleated RBC % Seg Neutrophils # Seg Neutrophils # Man Lymphocytes # (Manual) D-Dimer POC ABG pH POC ABG pCO2 POC ABG pO2 VBG pH Sodium Potassium Chloride 111.1 H Carbon Dioxide BUN 55 H Creatinine 1.8 H Glucose 162 H POC Glucose 143 H Hemoglobin A1c Lactic Acid Calcium Phosphorus Magnesium Iron TIBC AST 46 H ALT < 5 L Troponin T C-Reactive Protein Total Protein 5.7 L Albumin 2.1 L Triglycerides LDL Cholesterol Direct HDL Cholesterol Urine pH Urine WBC (Auto) Vancomycin Trough Salicylates Acetaminophen % CD3 Cells % CD19 Cells Absolute CD19 Count Miscellaneous Test Crossmatch 08/29/18 08/29/18 08/30/18 18:19 23:35 05:03 WBC RBC Hgb Hct RDW Plt Count Lymph % (Auto) [place] % (Auto) Lymph # [place] # Seg Neutrophils % Seg Neuts % (Manual) Lymphocytes % (Manual) Nucleated RBC % Seg Neutrophils # Seg Neutrophils # Man Lymphocytes # (Manual) D-Dimer POC ABG pH POC ABG pCO2 POC ABG pO2 VBG pH Sodium Potassium Chloride Carbon Dioxide BUN Creatinine Glucose POC Glucose 155 H 139 H 122 H Hemoglobin A1c Lactic Acid Calcium Phosphorus Magnesium Iron TIBC AST ALT Troponin T C-Reactive Protein Total Protein Albumin Triglycerides LDL Cholesterol Direct HDL Cholesterol Urine pH Urine WBC (Auto) Vancomycin Trough Salicylates Acetaminophen % CD3 Cells % CD19 Cells Absolute CD19 Count Miscellaneous Test Crossmatch 08/30/18 08/30/18 08/30/18 09:33 09:33 09:54 WBC RBC 2.58 L Hgb 7.9 L Hct 23.5 L RDW 20.9 H Plt Count Lymph % (Auto) 8.0 L [place] % (Auto) 9.7 H Lymph # 0.8 L [place] # 1.0 H Seg Neutrophils % 82.1 H Seg Neuts % (Manual) Lymphocytes % (Manual) Nucleated RBC % Seg Neutrophils # 8.2 H Seg Neutrophils # Man Lymphocytes # (Manual) D-Dimer POC ABG pH POC ABG pCO2 POC ABG pO2 VBG pH Sodium 146 H Potassium Chloride 110.7 H Carbon Dioxide BUN 56 H Creatinine 1.9 H Glucose 145 H POC Glucose Hemoglobin A1c Lactic Acid Calcium Phosphorus 4.60 H Magnesium Iron TIBC AST ALT < 5 L Troponin T C-Reactive Protein Total Protein Albumin 2.7 L Triglycerides LDL Cholesterol Direct HDL Cholesterol Urine pH Urine WBC (Auto) Vancomycin Trough Salicylates Acetaminophen % CD3 Cells % CD19 Cells Absolute CD19 Count Miscellaneous Test Flexitest 1 H Crossmatch 08/30/18 08/30/18 08/30/18 09:57 11:26 18:08 WBC RBC Hgb Hct RDW Plt Count Lymph % (Auto) [place] % (Auto) Lymph # [place] # Seg Neutrophils % Seg Neuts % (Manual) Lymphocytes % (Manual) Nucleated RBC % Seg Neutrophils # Seg Neutrophils # Man Lymphocytes # (Manual) D-Dimer POC ABG pH POC ABG pCO2 POC ABG pO2 VBG pH Sodium Potassium Chloride Carbon Dioxide BUN Creatinine Glucose POC Glucose 149 H 156 H Hemoglobin A1c Lactic Acid Calcium Phosphorus Magnesium Iron TIBC AST ALT Troponin T C-Reactive Protein Total Protein Albumin Triglycerides LDL Cholesterol Direct HDL Cholesterol Urine pH Urine WBC (Auto) Vancomycin Trough Salicylates Acetaminophen % CD3 Cells % CD19 Cells Absolute CD19 Count Miscellaneous Test Flexitest 1 H Crossmatch 08/30/18 08/31/18 08/31/18 23:14 05:16 08:40 WBC RBC Hgb Hct RDW Plt Count Lymph % (Auto) [place] % (Auto) Lymph # [place] # Seg Neutrophils % Seg Neuts % (Manual) Lymphocytes % (Manual) Nucleated RBC % Seg Neutrophils # Seg Neutrophils # Man Lymphocytes # (Manual) D-Dimer POC ABG pH POC ABG pCO2 POC ABG pO2 VBG pH Sodium 151 H Potassium Chloride 113.8 H Carbon Dioxide BUN 45 H Creatinine Glucose 144 H POC Glucose 117 H 133 H Hemoglobin A1c Lactic Acid Calcium Phosphorus Magnesium Iron TIBC AST ALT Troponin T C-Reactive Protein Total Protein Albumin Triglycerides LDL Cholesterol Direct HDL Cholesterol Urine pH Urine WBC (Auto) Vancomycin Trough Salicylates Acetaminophen % CD3 Cells % CD19 Cells Absolute CD19 Count Miscellaneous Test Crossmatch 08/31/18 09/01/18 09/01/18 23:46 04:45 04:45 WBC RBC 2.38 L Hgb 7.3 L Hct 22.1 L RDW 21.1 H Plt Count Lymph % (Auto) [place] % (Auto) Lymph # [place] # Seg Neutrophils % Seg Neuts % (Manual) 93.0 H Lymphocytes % (Manual) 4.0 L Nucleated RBC % Seg Neutrophils # Seg Neutrophils # Man 10.1 H Lymphocytes # (Manual) 0.4 L D-Dimer POC ABG pH POC ABG pCO2 POC ABG pO2 VBG pH Sodium 156 H Potassium 3.1 L Chloride 115.2 H Carbon Dioxide BUN 34 H Creatinine Glucose 125 H POC Glucose 124 H Hemoglobin A1c Lactic Acid Calcium Phosphorus Magnesium Iron TIBC AST ALT Troponin T C-Reactive Protein Total Protein Albumin Triglycerides LDL Cholesterol Direct HDL Cholesterol Urine pH Urine WBC (Auto) Vancomycin Trough Salicylates Acetaminophen % CD3 Cells % CD19 Cells Absolute CD19 Count Miscellaneous Test Crossmatch 09/01/18 09/01/18 09/01/18 05:34 11:20 17:52 WBC RBC Hgb Hct RDW Plt Count Lymph % (Auto) [place] % (Auto) Lymph # [place] # Seg Neutrophils % Seg Neuts % (Manual) Lymphocytes % (Manual) Nucleated RBC % Seg Neutrophils # Seg Neutrophils # Man Lymphocytes # (Manual) D-Dimer POC ABG pH 7.553 H POC ABG pCO2 POC ABG pO2 74 L VBG pH Sodium Potassium Chloride Carbon Dioxide BUN Creatinine Glucose POC Glucose 128 H 146 H Hemoglobin A1c Lactic Acid Calcium Phosphorus Magnesium Iron TIBC AST ALT Troponin T C-Reactive Protein Total Protein Albumin Triglycerides LDL Cholesterol Direct HDL Cholesterol Urine pH Urine WBC (Auto) Vancomycin Trough Salicylates Acetaminophen % CD3 Cells % CD19 Cells Absolute CD19 Count Miscellaneous Test Crossmatch 09/01/18 09/02/18 09/02/18 17:52 04:13 04:58 WBC 16.4 H RBC 2.64 L Hgb 7.9 L Hct 24.3 L RDW 20.8 H Plt Count Lymph % (Auto) [place] % (Auto) Lymph # [place] # Seg Neutrophils % Seg Neuts % (Manual) 96.0 H Lymphocytes % (Manual) 1.0 L Nucleated RBC % Seg Neutrophils # Seg Neutrophils # Man 15.7 H Lymphocytes # (Manual) 0.2 L D-Dimer POC ABG pH 7.488 H POC ABG pCO2 POC ABG pO2 63 L VBG pH Sodium Potassium Chloride Carbon Dioxide BUN Creatinine Glucose POC Glucose 143 H Hemoglobin A1c Lactic Acid Calcium Phosphorus Magnesium Iron TIBC AST ALT Troponin T C-Reactive Protein Total Protein Albumin Triglycerides LDL Cholesterol Direct HDL Cholesterol Urine pH Urine WBC (Auto) Vancomycin Trough Salicylates Acetaminophen % CD3 Cells % CD19 Cells Absolute CD19 Count Miscellaneous Test Crossmatch 09/02/18 09/02/18 09/02/18 04:58 11:03 18:18 WBC RBC Hgb Hct RDW Plt Count Lymph % (Auto) [place] % (Auto) Lymph # [place] # Seg Neutrophils % Seg Neuts % (Manual) Lymphocytes % (Manual) Nucleated RBC % Seg Neutrophils # Seg Neutrophils # Man Lymphocytes # (Manual) D-Dimer POC ABG pH 7.344 L POC ABG pCO2 52.8 H POC ABG pO2 VBG pH Sodium 158 H Potassium 2.9 L* Chloride 115.7 H Carbon Dioxide BUN 27 H Creatinine 0.6 L Glucose 128 H POC Glucose 121 H Hemoglobin A1c Lactic Acid Calcium Phosphorus Magnesium 1.60 L Iron TIBC AST 64 H ALT Troponin T C-Reactive Protein Total Protein Albumin 2.6 L Triglycerides LDL Cholesterol Direct HDL Cholesterol Urine pH Urine WBC (Auto) Vancomycin Trough Salicylates Acetaminophen % CD3 Cells % CD19 Cells Absolute CD19 Count Miscellaneous Test Crossmatch 09/02/18 09/03/18 09/03/18 23:06 03:36 04:25 WBC RBC 2.20 L Hgb 6.7 L Hct 20.9 L RDW 21.1 H Plt Count Lymph % (Auto) [place] % (Auto) Lymph # [place] # Seg Neutrophils % Seg Neuts % (Manual) 90.0 H Lymphocytes % (Manual) 5.0 L Nucleated RBC % Seg Neutrophils # Seg Neutrophils # Man 8.7 H Lymphocytes # (Manual) 0.5 L D-Dimer POC ABG pH POC ABG pCO2 POC ABG pO2 54 L VBG pH Sodium Potassium Chloride Carbon Dioxide BUN Creatinine Glucose POC Glucose 121 H Hemoglobin A1c Lactic Acid Calcium Phosphorus Magnesium Iron TIBC AST ALT Troponin T C-Reactive Protein Total Protein Albumin Triglycerides LDL Cholesterol Direct HDL Cholesterol Urine pH Urine WBC (Auto) Vancomycin Trough Salicylates Acetaminophen % CD3 Cells % CD19 Cells Absolute CD19 Count Miscellaneous Test Crossmatch 09/03/18 09/03/18 09/03/18 04:25 05:45 10:24 WBC RBC Hgb Hct RDW Plt Count Lymph % (Auto) [place] % (Auto) Lymph # [place] # Seg Neutrophils % Seg Neuts % (Manual) Lymphocytes % (Manual) Nucleated RBC % Seg Neutrophils # Seg Neutrophils # Man Lymphocytes # (Manual) D-Dimer POC ABG pH POC ABG pCO2 POC ABG pO2 VBG pH Sodium 158 H Potassium 3.1 L Chloride 120.4 H Carbon Dioxide BUN 25 H Creatinine 0.6 L Glucose 127 H POC Glucose 178 H Hemoglobin A1c Lactic Acid Calcium 7.9 L Phosphorus Magnesium Iron TIBC AST ALT Troponin T C-Reactive Protein Total Protein 6.0 L Albumin 2.4 L Triglycerides LDL Cholesterol Direct HDL Cholesterol Urine pH Urine WBC (Auto) Vancomycin Trough Salicylates Acetaminophen % CD3 Cells % CD19 Cells Absolute CD19 Count Miscellaneous Test Crossmatch See Detail 09/03/18 09/03/18 09/04/18 11:27 23:09 04:42 WBC RBC Hgb Hct RDW Plt Count Lymph % (Auto) [place] % (Auto) Lymph # [place] # Seg Neutrophils % Seg Neuts % (Manual) Lymphocytes % (Manual) Nucleated RBC % Seg Neutrophils # Seg Neutrophils # Man Lymphocytes # (Manual) D-Dimer POC ABG pH 7.293 L POC ABG pCO2 50.2 H POC ABG pO2 VBG pH Sodium Potassium Chloride Carbon Dioxide BUN Creatinine Glucose POC Glucose 107 H 139 H Hemoglobin A1c Lactic Acid Calcium Phosphorus Magnesium Iron TIBC AST ALT Troponin T C-Reactive Protein Total Protein Albumin Triglycerides LDL Cholesterol Direct HDL Cholesterol Urine pH Urine WBC (Auto) Vancomycin Trough Salicylates Acetaminophen % CD3 Cells % CD19 Cells Absolute CD19 Count Miscellaneous Test Crossmatch 09/04/18 09/04/18 09/04/18 05:00 06:30 06:30 WBC RBC 2.32 L Hgb 7.0 L Hct 21.9 L RDW 20.2 H Plt Count Lymph % (Auto) [place] % (Auto) Lymph # [place] # Seg Neutrophils % 80.1 H Seg Neuts % (Manual) Lymphocytes % (Manual) Nucleated RBC % Seg Neutrophils # 8.2 H Seg Neutrophils # Man Lymphocytes # (Manual) D-Dimer POC ABG pH POC ABG pCO2 POC ABG pO2 VBG pH Sodium 150 H D Potassium Chloride 115.9 H Carbon Dioxide BUN 21 H Creatinine 0.6 L Glucose 125 H POC Glucose 154 H Hemoglobin A1c Lactic Acid Calcium 7.9 L Phosphorus Magnesium 1.50 L Iron TIBC AST ALT Troponin T C-Reactive Protein Total Protein Albumin Triglycerides LDL Cholesterol Direct HDL Cholesterol Urine pH Urine WBC (Auto) Vancomycin Trough Salicylates Acetaminophen % CD3 Cells % CD19 Cells Absolute CD19 Count Miscellaneous Test Crossmatch 09/04/18 09/04/18 09/04/18 11:20 11:51 18:27 WBC RBC Hgb Hct RDW Plt Count Lymph % (Auto) [place] % (Auto) Lymph # [place] # Seg Neutrophils % Seg Neuts % (Manual) Lymphocytes % (Manual) Nucleated RBC % Seg Neutrophils # Seg Neutrophils # Man Lymphocytes # (Manual) D-Dimer POC ABG pH 7.244 L POC ABG pCO2 54.2 H POC ABG pO2 62 L VBG pH Sodium Potassium Chloride Carbon Dioxide BUN Creatinine Glucose POC Glucose 156 H 129 H Hemoglobin A1c Lactic Acid Calcium Phosphorus Magnesium Iron TIBC AST ALT Troponin T C-Reactive Protein Total Protein Albumin Triglycerides LDL Cholesterol Direct HDL Cholesterol Urine pH Urine WBC (Auto) Vancomycin Trough Salicylates Acetaminophen % CD3 Cells % CD19 Cells Absolute CD19 Count Miscellaneous Test Crossmatch 09/05/18 09/05/18 09/05/18 03:46 04:00 04:00 WBC RBC 2.13 L Hgb 6.4 L Hct 20.1 L RDW 19.9 H Plt Count 117 L Lymph % (Auto) [place] % (Auto) Lymph # 0.9 L [place] # Seg Neutrophils % 81.7 H Seg Neuts % (Manual) Lymphocytes % (Manual) Nucleated RBC % Seg Neutrophils # Seg Neutrophils # Man Lymphocytes # (Manual) D-Dimer POC ABG pH 7.282 L POC ABG pCO2 57.3 H POC ABG pO2 124 H VBG pH Sodium Potassium Chloride 111.0 H Carbon Dioxide BUN 20 H Creatinine Glucose 130 H POC Glucose Hemoglobin A1c Lactic Acid Calcium 7.8 L Phosphorus Magnesium 1.60 L Iron TIBC AST ALT Troponin T C-Reactive Protein Total Protein Albumin Triglycerides LDL Cholesterol Direct HDL Cholesterol Urine pH Urine WBC (Auto) Vancomycin Trough Salicylates Acetaminophen % CD3 Cells % CD19 Cells Absolute CD19 Count Miscellaneous Test Crossmatch 09/05/18 09/05/18 09/05/18 12:15 17:24 23:24 WBC RBC Hgb Hct RDW Plt Count Lymph % (Auto) [place] % (Auto) Lymph # [place] # Seg Neutrophils % Seg Neuts % (Manual) Lymphocytes % (Manual) Nucleated RBC % Seg Neutrophils # Seg Neutrophils # Man Lymphocytes # (Manual) D-Dimer POC ABG pH POC ABG pCO2 POC ABG pO2 VBG pH Sodium Potassium Chloride Carbon Dioxide BUN Creatinine Glucose POC Glucose 143 H 116 H 116 H Hemoglobin A1c Lactic Acid Calcium Phosphorus Magnesium Iron TIBC AST ALT Troponin T C-Reactive Protein Total Protein Albumin Triglycerides LDL Cholesterol Direct HDL Cholesterol Urine pH Urine WBC (Auto) Vancomycin Trough Salicylates Acetaminophen % CD3 Cells % CD19 Cells Absolute CD19 Count Miscellaneous Test Crossmatch 09/06/18 09/06/18 09/06/18 03:33 04:20 04:20 WBC RBC 2.45 L Hgb 7.4 L Hct 23.0 L RDW 18.1 H Plt Count 99 L Lymph % (Auto) [place] % (Auto) Lymph # 1.0 L [place] # Seg Neutrophils % 78.0 H Seg Neuts % (Manual) Lymphocytes % (Manual) Nucleated RBC % Seg Neutrophils # Seg Neutrophils # Man Lymphocytes # (Manual) D-Dimer POC ABG pH 7.303 L POC ABG pCO2 49.2 H POC ABG pO2 73 L VBG pH Sodium Potassium Chloride 109.3 H Carbon Dioxide BUN 24 H Creatinine Glucose 108 H POC Glucose Hemoglobin A1c Lactic Acid Calcium 8.1 L Phosphorus Magnesium Iron TIBC AST ALT Troponin T C-Reactive Protein Total Protein Albumin Triglycerides LDL Cholesterol Direct HDL Cholesterol Urine pH Urine WBC (Auto) Vancomycin Trough Salicylates Acetaminophen % CD3 Cells % CD19 Cells Absolute CD19 Count Miscellaneous Test Crossmatch 09/06/18 09/06/18 09/06/18 04:55 11:29 14:40 WBC RBC Hgb Hct RDW Plt Count Lymph % (Auto) [place] % (Auto) Lymph # [place] # Seg Neutrophils % Seg Neuts % (Manual) Lymphocytes % (Manual) Nucleated RBC % Seg Neutrophils # Seg Neutrophils # Man Lymphocytes # (Manual) D-Dimer POC ABG pH POC ABG pCO2 POC ABG pO2 VBG pH Sodium Potassium Chloride Carbon Dioxide BUN Creatinine Glucose POC Glucose 124 H 149 H Hemoglobin A1c Lactic Acid Calcium Phosphorus Magnesium Iron TIBC AST ALT Troponin T C-Reactive Protein Total Protein Albumin Triglycerides LDL Cholesterol Direct HDL Cholesterol Urine pH Urine WBC (Auto) Vancomycin Trough 28.6 H Salicylates Acetaminophen % CD3 Cells % CD19 Cells Absolute CD19 Count Miscellaneous Test Crossmatch 09/06/18 09/06/18 09/07/18 17:43 20:08 00:39 WBC RBC Hgb Hct RDW Plt Count Lymph % (Auto) [place] % (Auto) Lymph # [place] # Seg Neutrophils % Seg Neuts % (Manual) Lymphocytes % (Manual) Nucleated RBC % Seg Neutrophils # Seg Neutrophils # Man Lymphocytes # (Manual) D-Dimer POC ABG pH POC ABG pCO2 POC ABG pO2 VBG pH Sodium Potassium Chloride Carbon Dioxide BUN Creatinine Glucose POC Glucose 138 H 118 H 131 H Hemoglobin A1c Lactic Acid Calcium Phosphorus Magnesium Iron TIBC AST ALT Troponin T C-Reactive Protein Total Protein Albumin Triglycerides LDL Cholesterol Direct HDL Cholesterol Urine pH Urine WBC (Auto) Vancomycin Trough Salicylates Acetaminophen % CD3 Cells % CD19 Cells Absolute CD19 Count Miscellaneous Test Crossmatch 09/07/18 09/07/18 09/07/18 05:40 05:40 12:03 WBC RBC 2.40 L Hgb 7.3 L Hct 22.5 L RDW 17.8 H Plt Count 92 L Lymph % (Auto) [place] % (Auto) Lymph # [place] # Seg Neutrophils % Seg Neuts % (Manual) 80.0 H Lymphocytes % (Manual) Nucleated RBC % 1.0 H Seg Neutrophils # Seg Neutrophils # Man Lymphocytes # (Manual) 0.8 L D-Dimer POC ABG pH POC ABG pCO2 POC ABG pO2 VBG pH Sodium Potassium Chloride 109.8 H Carbon Dioxide BUN 26 H Creatinine Glucose 118 H POC Glucose 145 H Hemoglobin A1c Lactic Acid Calcium 8.0 L Phosphorus Magnesium Iron 26 L TIBC 150 L AST 88 H ALT Troponin T C-Reactive Protein Total Protein 5.8 L Albumin 2.1 L Triglycerides LDL Cholesterol Direct HDL Cholesterol Urine pH Urine WBC (Auto) Vancomycin Trough Salicylates Acetaminophen % CD3 Cells % CD19 Cells Absolute CD19 Count Miscellaneous Test Crossmatch 09/07/18 09/07/18 09/08/18 17:39 23:21 05:48 WBC RBC Hgb Hct RDW Plt Count Lymph % (Auto) [place] % (Auto) Lymph # [place] # Seg Neutrophils % Seg Neuts % (Manual) Lymphocytes % (Manual) Nucleated RBC % Seg Neutrophils # Seg Neutrophils # Man Lymphocytes # (Manual) D-Dimer POC ABG pH POC ABG pCO2 POC ABG pO2 VBG pH Sodium Potassium Chloride Carbon Dioxide BUN Creatinine Glucose POC Glucose 128 H 136 H 129 H Hemoglobin A1c Lactic Acid Calcium Phosphorus Magnesium Iron TIBC AST ALT Troponin T C-Reactive Protein Total Protein Albumin Triglycerides LDL Cholesterol Direct HDL Cholesterol Urine pH Urine WBC (Auto) Vancomycin Trough Salicylates Acetaminophen % CD3 Cells % CD19 Cells Absolute CD19 Count Miscellaneous Test Crossmatch 09/08/18 09/08/18 09/08/18 06:17 10:06 10:42 WBC RBC Hgb Hct RDW Plt Count Lymph % (Auto) [place] % (Auto) Lymph # [place] # Seg Neutrophils % Seg Neuts % (Manual) Lymphocytes % (Manual) Nucleated RBC % Seg Neutrophils # Seg Neutrophils # Man Lymphocytes # (Manual) D-Dimer POC ABG pH 7.292 L 7.276 L POC ABG pCO2 56.9 H 65.1 H POC ABG pO2 VBG pH Sodium 146 H Potassium Chloride 109.1 H Carbon Dioxide BUN 28 H Creatinine Glucose 165 H POC Glucose Hemoglobin A1c Lactic Acid Calcium Phosphorus Magnesium Iron TIBC AST ALT Troponin T C-Reactive Protein Total Protein Albumin Triglycerides LDL Cholesterol Direct HDL Cholesterol Urine pH Urine WBC (Auto) Vancomycin Trough Salicylates Acetaminophen % CD3 Cells % CD19 Cells Absolute CD19 Count Miscellaneous Test Crossmatch 09/08/18 09/08/18 09/08/18 11:06 18:07 23:20 WBC RBC Hgb Hct RDW Plt Count Lymph % (Auto) [place] % (Auto) Lymph # [place] # Seg Neutrophils % Seg Neuts % (Manual) Lymphocytes % (Manual) Nucleated RBC % Seg Neutrophils # Seg Neutrophils # Man Lymphocytes # (Manual) D-Dimer POC ABG pH POC ABG pCO2 POC ABG pO2 VBG pH Sodium Potassium Chloride Carbon Dioxide BUN Creatinine Glucose POC Glucose 165 H 140 H 124 H Hemoglobin A1c Lactic Acid Calcium Phosphorus Magnesium Iron TIBC AST ALT Troponin T C-Reactive Protein Total Protein Albumin Triglycerides LDL Cholesterol Direct HDL Cholesterol Urine pH Urine WBC (Auto) Vancomycin Trough Salicylates Acetaminophen % CD3 Cells % CD19 Cells Absolute CD19 Count Miscellaneous Test Crossmatch 09/09/18 09/09/18 09/09/18 05:04 08:39 08:39 WBC RBC 2.60 L Hgb 8.1 L Hct 24.6 L RDW 17.9 H Plt Count Lymph % (Auto) [place] % (Auto) Lymph # [place] # Seg Neutrophils % Seg Neuts % (Manual) Lymphocytes % (Manual) Nucleated RBC % Seg Neutrophils # Seg Neutrophils # Man Lymphocytes # (Manual) D-Dimer POC ABG pH POC ABG pCO2 POC ABG pO2 VBG pH Sodium Potassium Chloride Carbon Dioxide BUN 32 H Creatinine Glucose 150 H POC Glucose 168 H Hemoglobin A1c Lactic Acid Calcium Phosphorus Magnesium Iron TIBC AST ALT Troponin T C-Reactive Protein Total Protein Albumin Triglycerides LDL Cholesterol Direct HDL Cholesterol Urine pH Urine WBC (Auto) Vancomycin Trough Salicylates Acetaminophen % CD3 Cells % CD19 Cells Absolute CD19 Count Miscellaneous Test Crossmatch 09/09/18 09/10/18 09/10/18 12:41 04:20 04:20 WBC RBC 2.49 L Hgb 7.7 L Hct 23.4 L RDW 18.0 H Plt Count Lymph % (Auto) 8.2 L [place] % (Auto) Lymph # 0.7 L [place] # Seg Neutrophils % 87.7 H Seg Neuts % (Manual) Lymphocytes % (Manual) Nucleated RBC % Seg Neutrophils # Seg Neutrophils # Man Lymphocytes # (Manual) D-Dimer POC ABG pH POC ABG pCO2 POC ABG pO2 VBG pH Sodium Potassium Chloride Carbon Dioxide 31 H BUN 39 H Creatinine Glucose 183 H POC Glucose 150 H Hemoglobin A1c Lactic Acid Calcium Phosphorus Magnesium Iron TIBC AST 85 H ALT 58 H Troponin T C-Reactive Protein Total Protein Albumin 2.5 L Triglycerides LDL Cholesterol Direct HDL Cholesterol Urine pH Urine WBC (Auto) Vancomycin Trough Salicylates Acetaminophen % CD3 Cells % CD19 Cells Absolute CD19 Count Miscellaneous Test Crossmatch 09/10/18 09/10/18 09/10/18 04:39 05:06 11:17 WBC RBC Hgb Hct RDW Plt Count Lymph % (Auto) [place] % (Auto) Lymph # [place] # Seg Neutrophils % Seg Neuts % (Manual) Lymphocytes % (Manual) Nucleated RBC % Seg Neutrophils # Seg Neutrophils # Man Lymphocytes # (Manual) D-Dimer POC ABG pH POC ABG pCO2 51.4 H POC ABG pO2 VBG pH Sodium Potassium Chloride Carbon Dioxide BUN Creatinine Glucose POC Glucose 185 H 159 H Hemoglobin A1c Lactic Acid Calcium Phosphorus Magnesium Iron TIBC AST ALT Troponin T C-Reactive Protein Total Protein Albumin Triglycerides LDL Cholesterol Direct HDL Cholesterol Urine pH Urine WBC (Auto) Vancomycin Trough Salicylates Acetaminophen % CD3 Cells % CD19 Cells Absolute CD19 Count Miscellaneous Test Crossmatch 09/10/18 09/11/18 09/11/18 16:57 00:17 01:10 WBC RBC Hgb Hct RDW Plt Count Lymph % (Auto) [place] % (Auto) Lymph # [place] # Seg Neutrophils % Seg Neuts % (Manual) Lymphocytes % (Manual) Nucleated RBC % Seg Neutrophils # Seg Neutrophils # Man Lymphocytes # (Manual) D-Dimer POC ABG pH POC ABG pCO2 POC ABG pO2 VBG pH Sodium Potassium Chloride Carbon Dioxide 34 H BUN 44 H Creatinine Glucose 154 H POC Glucose 177 H 163 H Hemoglobin A1c Lactic Acid Calcium Phosphorus Magnesium Iron TIBC AST 86 H ALT 68 H Troponin T C-Reactive Protein Total Protein Albumin 2.6 L Triglycerides LDL Cholesterol Direct HDL Cholesterol Urine pH Urine WBC (Auto) Vancomycin Trough Salicylates Acetaminophen % CD3 Cells % CD19 Cells Absolute CD19 Count Miscellaneous Test Crossmatch 09/11/18 09/11/18 09/11/18 01:10 06:03 09:00 WBC 13.7 H RBC 2.61 L Hgb 8.0 L Hct 24.6 L RDW 19.1 H Plt Count Lymph % (Auto) 6.1 L [place] % (Auto) Lymph # 0.8 L [place] # Seg Neutrophils % 87.7 H Seg Neuts % (Manual) Lymphocytes % (Manual) Nucleated RBC % Seg Neutrophils # 12.0 H Seg Neutrophils # Man Lymphocytes # (Manual) D-Dimer POC ABG pH POC ABG pCO2 POC ABG pO2 VBG pH Sodium Potassium Chloride Carbon Dioxide 33 H BUN 45 H Creatinine Glucose 147 H POC Glucose 180 H Hemoglobin A1c Lactic Acid Calcium Phosphorus Magnesium Iron TIBC AST ALT Troponin T C-Reactive Protein Total Protein Albumin Triglycerides LDL Cholesterol Direct HDL Cholesterol Urine pH Urine WBC (Auto) Vancomycin Trough Salicylates Acetaminophen % CD3 Cells % CD19 Cells Absolute CD19 Count Miscellaneous Test Crossmatch 09/11/18 09/11/18 09/11/18 11:14 11:31 17:11 WBC RBC Hgb Hct RDW Plt Count Lymph % (Auto) [place] % (Auto) Lymph # [place] # Seg Neutrophils % Seg Neuts % (Manual) Lymphocytes % (Manual) Nucleated RBC % Seg Neutrophils # Seg Neutrophils # Man Lymphocytes # (Manual) D-Dimer POC ABG pH 7.498 H POC ABG pCO2 46.3 H POC ABG pO2 VBG pH Sodium Potassium Chloride Carbon Dioxide BUN Creatinine Glucose POC Glucose 163 H 202 H Hemoglobin A1c Lactic Acid Calcium Phosphorus Magnesium Iron TIBC AST ALT Troponin T C-Reactive Protein Total Protein Albumin Triglycerides LDL Cholesterol Direct HDL Cholesterol Urine pH Urine WBC (Auto) Vancomycin Trough Salicylates Acetaminophen % CD3 Cells % CD19 Cells Absolute CD19 Count Miscellaneous Test Crossmatch 09/11/18 09/12/18 09/12/18 23:49 03:16 05:30 WBC RBC 2.36 L Hgb 7.3 L Hct 22.3 L RDW 18.4 H Plt Count Lymph % (Auto) 13.0 L [place] % (Auto) 9.3 H Lymph # 1.1 L [place] # Seg Neutrophils % 77.5 H Seg Neuts % (Manual) Lymphocytes % (Manual) Nucleated RBC % Seg Neutrophils # Seg Neutrophils # Man Lymphocytes # (Manual) D-Dimer POC ABG pH 7.517 H POC ABG pCO2 48.8 H POC ABG pO2 VBG pH Sodium Potassium Chloride Carbon Dioxide BUN Creatinine Glucose POC Glucose 163 H Hemoglobin A1c Lactic Acid Calcium Phosphorus Magnesium Iron TIBC AST ALT Troponin T C-Reactive Protein Total Protein Albumin Triglycerides LDL Cholesterol Direct HDL Cholesterol Urine pH Urine WBC (Auto) Vancomycin Trough Salicylates Acetaminophen % CD3 Cells % CD19 Cells Absolute CD19 Count Miscellaneous Test Crossmatch 09/12/18 09/12/18 09/12/18 05:30 06:07 11:36 WBC RBC Hgb Hct RDW Plt Count Lymph % (Auto) [place] % (Auto) Lymph # [place] # Seg Neutrophils % Seg Neuts % (Manual) Lymphocytes % (Manual) Nucleated RBC % Seg Neutrophils # Seg Neutrophils # Man Lymphocytes # (Manual) D-Dimer POC ABG pH POC ABG pCO2 POC ABG pO2 VBG pH Sodium 148 H Potassium Chloride Carbon Dioxide 36 H BUN 46 H Creatinine Glucose 152 H POC Glucose 172 H 212 H Hemoglobin A1c Lactic Acid Calcium Phosphorus Magnesium Iron TIBC AST ALT Troponin T C-Reactive Protein Total Protein Albumin Triglycerides LDL Cholesterol Direct HDL Cholesterol Urine pH Urine WBC (Auto) Vancomycin Trough Salicylates Acetaminophen % CD3 Cells % CD19 Cells Absolute CD19 Count Miscellaneous Test Crossmatch 09/12/18 09/12/18 09/13/18 18:02 23:19 03:55 WBC RBC Hgb Hct RDW Plt Count Lymph % (Auto) [place] % (Auto) Lymph # [place] # Seg Neutrophils % Seg Neuts % (Manual) Lymphocytes % (Manual) Nucleated RBC % Seg Neutrophils # Seg Neutrophils # Man Lymphocytes # (Manual) D-Dimer POC ABG pH 7.520 H POC ABG pCO2 48.0 H POC ABG pO2 58 L VBG pH Sodium Potassium Chloride Carbon Dioxide BUN Creatinine Glucose POC Glucose 142 H 161 H Hemoglobin A1c Lactic Acid Calcium Phosphorus Magnesium Iron TIBC AST ALT Troponin T C-Reactive Protein Total Protein Albumin Triglycerides LDL Cholesterol Direct HDL Cholesterol Urine pH Urine WBC (Auto) Vancomycin Trough Salicylates Acetaminophen % CD3 Cells % CD19 Cells Absolute CD19 Count Miscellaneous Test Crossmatch 09/13/18 09/13/18 09/13/18 05:11 05:25 05:25 WBC RBC 2.38 L Hgb 7.6 L Hct 22.4 L RDW 18.6 H Plt Count Lymph % (Auto) [place] % (Auto) Lymph # [place] # Seg Neutrophils % Seg Neuts % (Manual) Lymphocytes % (Manual) Nucleated RBC % Seg Neutrophils # Seg Neutrophils # Man Lymphocytes # (Manual) D-Dimer POC ABG pH POC ABG pCO2 POC ABG pO2 VBG pH Sodium Potassium 3.2 L Chloride 97.5 L Carbon Dioxide 38 H BUN 38 H Creatinine 0.6 L Glucose 120 H POC Glucose 139 H Hemoglobin A1c Lactic Acid Calcium 8.1 L Phosphorus Magnesium Iron TIBC AST 120 H ALT 124 H Troponin T C-Reactive Protein Total Protein 5.9 L Albumin 2.6 L Triglycerides LDL Cholesterol Direct HDL Cholesterol Urine pH Urine WBC (Auto) Vancomycin Trough Salicylates Acetaminophen % CD3 Cells % CD19 Cells Absolute CD19 Count Miscellaneous Test Crossmatch 09/13/18 09/13/18 09/13/18 11:31 17:46 23:23 WBC RBC Hgb Hct RDW Plt Count Lymph % (Auto) [place] % (Auto) Lymph # [place] # Seg Neutrophils % Seg Neuts % (Manual) Lymphocytes % (Manual) Nucleated RBC % Seg Neutrophils # Seg Neutrophils # Man Lymphocytes # (Manual) D-Dimer POC ABG pH POC ABG pCO2 POC ABG pO2 VBG pH Sodium Potassium Chloride Carbon Dioxide BUN Creatinine Glucose POC Glucose 160 H 145 H 135 H Hemoglobin A1c Lactic Acid Calcium Phosphorus Magnesium Iron TIBC AST ALT Troponin T C-Reactive Protein Total Protein Albumin Triglycerides LDL Cholesterol Direct HDL Cholesterol Urine pH Urine WBC (Auto) Vancomycin Trough Salicylates Acetaminophen % CD3 Cells % CD19 Cells Absolute CD19 Count Miscellaneous Test Crossmatch 09/14/18 09/14/18 09/14/18 03:56 04:55 04:55 WBC RBC 2.28 L Hgb 7.1 L Hct 21.4 L RDW 18.2 H Plt Count Lymph % (Auto) [place] % (Auto) Lymph # [place] # Seg Neutrophils % 76.4 H Seg Neuts % (Manual) Lymphocytes % (Manual) Nucleated RBC % Seg Neutrophils # Seg Neutrophils # Man Lymphocytes # (Manual) D-Dimer POC ABG pH 7.503 H POC ABG pCO2 49.1 H POC ABG pO2 79 L VBG pH Sodium Potassium Chloride 97.7 L Carbon Dioxide 35 H BUN 32 H Creatinine 0.6 L Glucose 114 H POC Glucose Hemoglobin A1c Lactic Acid Calcium Phosphorus Magnesium Iron TIBC AST 60 H ALT 88 H Troponin T C-Reactive Protein Total Protein 5.6 L Albumin 2.2 L Triglycerides LDL Cholesterol Direct HDL Cholesterol Urine pH Urine WBC (Auto) Vancomycin Trough Salicylates Acetaminophen % CD3 Cells % CD19 Cells Absolute CD19 Count Miscellaneous Test Crossmatch 09/14/18 09/14/18 09/14/18 05:14 12:00 12:27 WBC RBC Hgb Hct RDW Plt Count Lymph % (Auto) [place] % (Auto) Lymph # [place] # Seg Neutrophils % Seg Neuts % (Manual) Lymphocytes % (Manual) Nucleated RBC % Seg Neutrophils # Seg Neutrophils # Man Lymphocytes # (Manual) D-Dimer POC ABG pH POC ABG pCO2 POC ABG pO2 VBG pH Sodium Potassium Chloride Carbon Dioxide BUN Creatinine Glucose POC Glucose 115 H 125 H Hemoglobin A1c Lactic Acid Calcium Phosphorus Magnesium Iron TIBC AST ALT Troponin T C-Reactive Protein Total Protein Albumin Triglycerides LDL Cholesterol Direct HDL Cholesterol Urine pH Urine WBC (Auto) Vancomycin Trough Salicylates Acetaminophen % CD3 Cells % CD19 Cells Absolute CD19 Count Miscellaneous Test Crossmatch See Detail 09/14/18 09/15/18 09/15/18 17:54 03:49 04:10 WBC RBC 2.46 L Hgb 7.7 L Hct 23.0 L RDW 18.6 H Plt Count Lymph % (Auto) [place] % (Auto) Lymph # 1.1 L [place] # Seg Neutrophils % 74.2 H Seg Neuts % (Manual) Lymphocytes % (Manual) Nucleated RBC % Seg Neutrophils # Seg Neutrophils # Man Lymphocytes # (Manual) D-Dimer POC ABG pH POC ABG pCO2 58.2 H POC ABG pO2 VBG pH Sodium Potassium Chloride Carbon Dioxide BUN Creatinine Glucose POC Glucose 138 H Hemoglobin A1c Lactic Acid Calcium Phosphorus Magnesium Iron TIBC AST ALT Troponin T C-Reactive Protein Total Protein Albumin Triglycerides LDL Cholesterol Direct HDL Cholesterol Urine pH Urine WBC (Auto) Vancomycin Trough Salicylates Acetaminophen % CD3 Cells % CD19 Cells Absolute CD19 Count Miscellaneous Test Crossmatch 09/15/18 09/15/18 09/15/18 04:10 11:36 11:36 WBC RBC Hgb Hct RDW Plt Count Lymph % (Auto) [place] % (Auto) Lymph # [place] # Seg Neutrophils % Seg Neuts % (Manual) Lymphocytes % (Manual) Nucleated RBC % Seg Neutrophils # Seg Neutrophils # Man Lymphocytes # (Manual) D-Dimer POC ABG pH POC ABG pCO2 53.5 H POC ABG pO2 67 L VBG pH Sodium Potassium Chloride Carbon Dioxide 35 H BUN 21 H Creatinine Glucose POC Glucose 108 H Hemoglobin A1c Lactic Acid Calcium 7.9 L Phosphorus Magnesium Iron TIBC AST ALT Troponin T C-Reactive Protein Total Protein Albumin Triglycerides LDL Cholesterol Direct HDL Cholesterol Urine pH Urine WBC (Auto) Vancomycin Trough Salicylates Acetaminophen % CD3 Cells % CD19 Cells Absolute CD19 Count Miscellaneous Test Crossmatch 09/16/18 09/16/18 09/16/18 01:16 04:25 11:30 WBC RBC 2.77 L Hgb 8.5 L Hct 25.6 L RDW 17.9 H Plt Count Lymph % (Auto) [place] % (Auto) Lymph # [place] # Seg Neutrophils % Seg Neuts % (Manual) Lymphocytes % (Manual) Nucleated RBC % Seg Neutrophils # Seg Neutrophils # Man Lymphocytes # (Manual) D-Dimer POC ABG pH 7.489 H POC ABG pCO2 47.6 H POC ABG pO2 62 L VBG pH Sodium Potassium Chloride Carbon Dioxide BUN Creatinine Glucose POC Glucose 108 H Hemoglobin A1c Lactic Acid Calcium Phosphorus Magnesium Iron TIBC AST ALT Troponin T C-Reactive Protein Total Protein Albumin Triglycerides LDL Cholesterol Direct HDL Cholesterol Urine pH Urine WBC (Auto) Vancomycin Trough Salicylates Acetaminophen % CD3 Cells % CD19 Cells Absolute CD19 Count Miscellaneous Test Crossmatch 09/16/18 09/16/18 09/17/18 11:30 23:07 04:22 WBC RBC Hgb Hct RDW Plt Count Lymph % (Auto) [place] % (Auto) Lymph # [place] # Seg Neutrophils % Seg Neuts % (Manual) Lymphocytes % (Manual) Nucleated RBC % Seg Neutrophils # Seg Neutrophils # Man Lymphocytes # (Manual) D-Dimer POC ABG pH 7.576 H POC ABG pCO2 POC ABG pO2 58 L VBG pH Sodium Potassium 3.2 L Chloride 96.6 L Carbon Dioxide 34 H BUN Creatinine Glucose 128 H POC Glucose 147 H Hemoglobin A1c Lactic Acid Calcium Phosphorus Magnesium Iron TIBC AST ALT Troponin T C-Reactive Protein Total Protein Albumin Triglycerides LDL Cholesterol Direct HDL Cholesterol Urine pH Urine WBC (Auto) Vancomycin Trough Salicylates Acetaminophen % CD3 Cells % CD19 Cells Absolute CD19 Count Miscellaneous Test Crossmatch 09/17/18 09/17/18 09/17/18 05:50 10:15 14:59 WBC RBC Hgb Hct RDW Plt Count Lymph % (Auto) [place] % (Auto) Lymph # [place] # Seg Neutrophils % Seg Neuts % (Manual) Lymphocytes % (Manual) Nucleated RBC % Seg Neutrophils # Seg Neutrophils # Man Lymphocytes # (Manual) D-Dimer POC ABG pH POC ABG pCO2 POC ABG pO2 VBG pH Sodium Potassium 2.6 L* Chloride 96.3 L Carbon Dioxide 33 H BUN Creatinine Glucose 151 H POC Glucose 138 H 151 H Hemoglobin A1c Lactic Acid Calcium Phosphorus Magnesium Iron TIBC AST ALT Troponin T C-Reactive Protein Total Protein Albumin Triglycerides LDL Cholesterol Direct HDL Cholesterol Urine pH Urine WBC (Auto) Vancomycin Trough Salicylates Acetaminophen % CD3 Cells % CD19 Cells Absolute CD19 Count Miscellaneous Test Crossmatch 09/17/18 09/17/18 09/18/18 17:51 Unknown 00:11 WBC RBC Hgb Hct RDW Plt Count Lymph % (Auto) [place] % (Auto) Lymph # [place] # Seg Neutrophils % Seg Neuts % (Manual) Lymphocytes % (Manual) Nucleated RBC % Seg Neutrophils # Seg Neutrophils # Man Lymphocytes # (Manual) D-Dimer POC ABG pH POC ABG pCO2 POC ABG pO2 VBG pH Sodium Potassium 2.7 L* Chloride 97.5 L Carbon Dioxide 32 H BUN Creatinine Glucose 142 H POC Glucose 149 H 128 H Hemoglobin A1c Lactic Acid Calcium Phosphorus Magnesium Iron TIBC AST ALT Troponin T C-Reactive Protein Total Protein Albumin Triglycerides LDL Cholesterol Direct HDL Cholesterol Urine pH Urine WBC (Auto) Vancomycin Trough Salicylates Acetaminophen % CD3 Cells % CD19 Cells Absolute CD19 Count Miscellaneous Test Crossmatch 09/18/18 09/18/18 09/18/18 04:20 04:20 04:28 WBC RBC 2.94 L Hgb 9.0 L Hct 27.2 L RDW 17.7 H Plt Count Lymph % (Auto) [place] % (Auto) 12.1 H Lymph # 1.0 L [place] # Seg Neutrophils % 70.2 H Seg Neuts % (Manual) Lymphocytes % (Manual) Nucleated RBC % Seg Neutrophils # Seg Neutrophils # Man Lymphocytes # (Manual) D-Dimer POC ABG pH 7.563 H POC ABG pCO2 POC ABG pO2 VBG pH Sodium Potassium 3.0 L Chloride Carbon Dioxide 33 H BUN Creatinine Glucose 133 H POC Glucose Hemoglobin A1c Lactic Acid Calcium Phosphorus Magnesium Iron TIBC AST ALT Troponin T C-Reactive Protein Total Protein Albumin Triglycerides LDL Cholesterol Direct HDL Cholesterol Urine pH Urine WBC (Auto) Vancomycin Trough Salicylates Acetaminophen % CD3 Cells % CD19 Cells Absolute CD19 Count Miscellaneous Test Crossmatch 09/18/18 09/18/18 09/19/18 06:19 14:45 00:13 WBC RBC Hgb Hct RDW Plt Count Lymph % (Auto) [place] % (Auto) Lymph # [place] # Seg Neutrophils % Seg Neuts % (Manual) Lymphocytes % (Manual) Nucleated RBC % Seg Neutrophils # Seg Neutrophils # Man Lymphocytes # (Manual) D-Dimer POC ABG pH POC ABG pCO2 POC ABG pO2 VBG pH Sodium Potassium Chloride Carbon Dioxide BUN Creatinine Glucose POC Glucose 140 H 164 H 111 H Hemoglobin A1c Lactic Acid Calcium Phosphorus Magnesium Iron TIBC AST ALT Troponin T C-Reactive Protein Total Protein Albumin Triglycerides LDL Cholesterol Direct HDL Cholesterol Urine pH Urine WBC (Auto) Vancomycin Trough Salicylates Acetaminophen % CD3 Cells % CD19 Cells Absolute CD19 Count Miscellaneous Test Crossmatch 09/19/18 09/19/18 09/19/18 03:38 05:08 05:20 WBC RBC Hgb Hct RDW Plt Count Lymph % (Auto) [place] % (Auto) Lymph # [place] # Seg Neutrophils % Seg Neuts % (Manual) Lymphocytes % (Manual) Nucleated RBC % Seg Neutrophils # Seg Neutrophils # Man Lymphocytes # (Manual) D-Dimer POC ABG pH 7.502 H POC ABG pCO2 34.6 L POC ABG pO2 73 L VBG pH Sodium Potassium 2.7 L* Chloride Carbon Dioxide BUN Creatinine 0.6 L Glucose 119 H POC Glucose 128 H Hemoglobin A1c Lactic Acid Calcium Phosphorus Magnesium Iron TIBC AST ALT Troponin T C-Reactive Protein Total Protein Albumin Triglycerides LDL Cholesterol Direct HDL Cholesterol Urine pH Urine WBC (Auto) Vancomycin Trough Salicylates Acetaminophen % CD3 Cells % CD19 Cells Absolute CD19 Count Miscellaneous Test Crossmatch 09/20/18 09/20/18 09/20/18 04:20 04:20 05:15 WBC RBC 2.89 L Hgb 9.1 L Hct 27.1 L RDW 17.1 H Plt Count Lymph % (Auto) 12.6 L [place] % (Auto) 10.7 H Lymph # 1.1 L [place] # 0.9 H Seg Neutrophils % 76.1 H Seg Neuts % (Manual) Lymphocytes % (Manual) Nucleated RBC % Seg Neutrophils # Seg Neutrophils # Man Lymphocytes # (Manual) D-Dimer POC ABG pH POC ABG pCO2 33.6 L POC ABG pO2 56 L VBG pH Sodium 136 L Potassium 2.9 L* Chloride Carbon Dioxide BUN Creatinine Glucose 116 H POC Glucose Hemoglobin A1c Lactic Acid Calcium Phosphorus Magnesium Iron TIBC AST ALT Troponin T C-Reactive Protein Total Protein Albumin Triglycerides LDL Cholesterol Direct HDL Cholesterol Urine pH Urine WBC (Auto) Vancomycin Trough Salicylates Acetaminophen % CD3 Cells % CD19 Cells Absolute CD19 Count Miscellaneous Test Crossmatch 09/20/18 09/20/18 09/20/18 11:26 16:10 23:50 WBC RBC Hgb Hct RDW Plt Count Lymph % (Auto) [place] % (Auto) Lymph # [place] # Seg Neutrophils % Seg Neuts % (Manual) Lymphocytes % (Manual) Nucleated RBC % Seg Neutrophils # Seg Neutrophils # Man Lymphocytes # (Manual) D-Dimer POC ABG pH POC ABG pCO2 POC ABG pO2 VBG pH Sodium Potassium Chloride Carbon Dioxide BUN Creatinine Glucose POC Glucose 163 H 119 H Hemoglobin A1c Lactic Acid Calcium Phosphorus Magnesium Iron TIBC AST ALT Troponin T C-Reactive Protein Total Protein Albumin Triglycerides LDL Cholesterol Direct HDL Cholesterol Urine pH 9.0 H Urine WBC (Auto) Vancomycin Trough Salicylates Acetaminophen % CD3 Cells % CD19 Cells Absolute CD19 Count Miscellaneous Test Crossmatch 09/21/18 09/21/18 09/21/18 04:35 04:35 11:30 WBC RBC 2.67 L Hgb 8.3 L Hct 25.1 L RDW 17.4 H Plt Count Lymph % (Auto) [place] % (Auto) 10.0 H Lymph # [place] # Seg Neutrophils % Seg Neuts % (Manual) Lymphocytes % (Manual) Nucleated RBC % Seg Neutrophils # Seg Neutrophils # Man Lymphocytes # (Manual) D-Dimer POC ABG pH POC ABG pCO2 POC ABG pO2 VBG pH Sodium Potassium Chloride Carbon Dioxide 21 L BUN 18 H Creatinine Glucose 106 H POC Glucose 110 H Hemoglobin A1c Lactic Acid Calcium Phosphorus Magnesium Iron TIBC AST ALT Troponin T C-Reactive Protein Total Protein Albumin Triglycerides LDL Cholesterol Direct HDL Cholesterol Urine pH Urine WBC (Auto) Vancomycin Trough Salicylates Acetaminophen % CD3 Cells % CD19 Cells Absolute CD19 Count Miscellaneous Test Crossmatch 09/22/18 04:11 WBC RBC Hgb Hct RDW Plt Count Lymph % (Auto) [place] % (Auto) Lymph # [place] # Seg Neutrophils % Seg Neuts % (Manual) Lymphocytes % (Manual) Nucleated RBC % Seg Neutrophils # Seg Neutrophils # Man Lymphocytes # (Manual) D-Dimer POC ABG pH POC ABG pCO2 POC ABG pO2 VBG pH Sodium Potassium Chloride Carbon Dioxide BUN 21 H Creatinine 0.6 L Glucose POC Glucose Hemoglobin A1c Lactic Acid Calcium Phosphorus Magnesium Iron TIBC AST ALT Troponin T C-Reactive Protein Total Protein Albumin Triglycerides LDL Cholesterol Direct HDL Cholesterol Urine pH Urine WBC (Auto) Vancomycin Trough Salicylates Acetaminophen % CD3 Cells % CD19 Cells Absolute CD19 Count Miscellaneous Test Crossmatch Allied health notes reviewed: nursing
[2018-09-22] MEDS: PEPCID PO SCH ×2 (09:40→22:09)
[2018-09-22] MEDS: LASIX IV SCH (09:41)
[2018-09-22] MEDS: COREG PO SCH ×2 (09:41→21:59)
[2018-09-22] MEDS: ARIXTRA SUB-Q SCH (09:41)
[2018-09-22] MEDS: ELIQUIS PO SCH ×2 (12:29→21:57)
--- NOTE | 2018-09-22 14:09 | Progress Note ---
Assessment and Plan /Acute hypoxic hypercapnic respiratory failure; extubated 08/29/18 Re Intubated 09/02/18, vent dependent s/p trach on 09/14/18 Status post bronchoscopy, BAL negative cont nebulizers, pulmonary following /Dysphagia - cannot be placed PEG as could not be transilluminated stomach on EGD - s/p PEG done by IR 09/21/18, cont TF /Hypokalemia, cont to replete, normal Mg level, likely from diarrhea /Sepsis; new fever 102.6 on 09/18. Initially treated for aspiration pneumonia and Camryn glabrata fungemia; s/p micafungin, meropenem and Vanco per ID. treated for possible C.def with vancomycin po, C.def negative. monitor off abx now / Recent Camryn glabrata fungemia: treated /Thrombocytopenia: Platelet count is Stable Lovenox changed to Arixtra /Anemia: s/p transfusion[4 PRBC] Stool for occult blood x 2 negative, hematology following -Recent EGD at [facility] 08/08/2018 revealing irregular Z line, gastritis and small hiatal hernia - Recent colonoscopy at [facility] 08/08/2018 revealing sigmoid polyp, transverse colon polyps, inflamed hemorrhoids and diverticulosis /Hypomagnesemia; Hypernatremia; resolved, /Bileral lower extremity DVT; anticoagulation with arixtra CTA chest negative for PE /Hypertension; continue current antihypertensives /Severe malnutrition/hypoalbuminemia; Dietitian following, On TF /Acute kidney injury; probably secondary to ATN, Resolved, /Acute systolic congestive heart failure; EF 25-30%, Cardio following, monitor ins/os Previous echo 03/30/2016 at [facility] revealed normal LVEF Previous stress MPI 03/29/2016 at [facility] revealed no ischemia /Elevated Transaminases; resolved /-DVT prophylaxis; on full dose arixtra, Consults and recommendations noted and appreciated Plan of care reviewed with the patient's nurse and family The high probability of a clinically significant, sudden or life threatening deterioration of the [respiratory, cardiology, ID, renal and metabolic] system(s) required my full and direct attention, intervention and personal management. The aggregate critical care time was [32] minutes. This time is in addition to time spent performing reported procedures but includes the following: [x] Data Review and interpretation [x] Patient assessment and monitoring of vital signs [x] Documentation [x] Medication orders and management Disposition: Plan to d/c to LTAC pending. Brief History: 68-year-old female patient with history of COPD, arthritis s/p C-spine and lumbar spine surgery, Chronic pain syndrome who was found unconscious in her feces and vomitus, patients family was in [place] for a golf tournament. Patient was brought to the emergency room noted to be severely hypoxic and tachypneic, promptly intubated placed on ventilatory support and admitted to ICU patient was also noted to have possible aspiration pneumonia, completed treatment recommended by ID .currently monitoring of antibiotics . patient also had acute gastroenteritis acute kidney injury nonspecific elevation of troponins as well as septic shock evaluated by multiple specialties successfully weaned and extubated on 08/29/2018 however patient again went into acute respiratory failure requiring reintubation on 09/02/2018, Since then patient is vent dependent, planned for trach and PEG and placement. She is also being treated for acute b/l DVT diagnosed following admission while she was on DVT Px. s/p 4units of PRBC transfusion for anemia, no acute source of active bleeding so far. planned to d/c to LTAC Work up so far: CT abdomen/pelvis CTA chest Head CT 2d echo Renal US CXRs abdominal xrys Hospitalist Physical General appearance: Present: no acute distress, well-nourished, obese, other (on vent with trach) - EENT Eyes: Present: PERRL, EOM intact - Neck Neck: Present: supple, trach on place - Respiratory Respiratory effort: normal Respiratory: bilateral: diminished, rhonchi, negative: rales, wheezing - Cardiovascular Rhythm: regular Heart Sounds: Present: S1 & S2 - Extremities Extremities: no ischemia, No edema - Abdominal General gastrointestinal: soft, non-tender, non-distended, normal bowel sounds, PEG on place - Integumentary Integumentary: Present: clear, warm - Psychiatric Psychiatric: cooperative, other (on vent) - Neurologic Neurologic: move extremities Subjective Date of service: 09/22/18 Principal diagnosis: dvt - anemia Interval history: Patient seen and examined medical records reviewed Patient on ventilator support with trach Alert and awake not in acute distress Vital signs noted, tolerating TF with PEG Objective - Constitutional Vitals: Vital Signs - 12hr 09/22/18 09/22/18 09/22/18 02:18 02:30 03:00 Temperature Pulse Rate 68 75 Pulse Rate [ Anterior Bilateral Throughout] Pulse Rate [ Anterior Bilateral] Pulse Rate [ From Monitor] Respiratory 21 11 L Rate Respiratory Rate [Anterior Bilateral Throughout] Respiratory Rate [Anterior Bilateral] Respiratory Rate [ Generalized] Blood Pressure 121/48 109/53 O2 Sat by Pulse 99 98 Oximetry O2 Sat by Pulse 97 Oximetry [ Assessment] 09/22/18 09/22/18 09/22/18 03:30 04:00 04:30 Temperature 99.6 F Pulse Rate 79 75 75 Pulse Rate [ Anterior Bilateral Throughout] Pulse Rate [ Anterior Bilateral] Pulse Rate [ 78 From Monitor] Respiratory 10 L 21 19 Rate Respiratory Rate [Anterior Bilateral Throughout] Respiratory Rate [Anterior Bilateral] Respiratory Rate [ Generalized] Blood Pressure 117/55 117/55 117/55 O2 Sat by Pulse 98 97 97 Oximetry O2 Sat by Pulse Oximetry [ Assessment] 09/22/18 09/22/18 09/22/18 05:01 05:31 05:52 Temperature Pulse Rate 74 75 Pulse Rate [ Anterior Bilateral Throughout] Pulse Rate [ Anterior Bilateral] Pulse Rate [ From Monitor] Respiratory 22 Rate Respiratory Rate [Anterior Bilateral Throughout] Respiratory Rate [Anterior Bilateral] Respiratory Rate [ Generalized] Blood Pressure 117/55 117/55 124/56 O2 Sat by Pulse 98 99 Oximetry O2 Sat by Pulse Oximetry [ Assessment] 09/22/18 09/22/18 09/22/18 05:53 06:00 06:30 Temperature Pulse Rate 73 72 Pulse Rate [ Anterior Bilateral Throughout] Pulse Rate [ Anterior Bilateral] Pulse Rate [ From Monitor] Respiratory 20 22 22 Rate Respiratory Rate [Anterior Bilateral Throughout] Respiratory Rate [Anterior Bilateral] Respiratory Rate [ Generalized] Blood Pressure 124/56 123/57 O2 Sat by Pulse 99 99 Oximetry O2 Sat by Pulse Oximetry [ Assessment] 09/22/18 09/22/18 09/22/18 07:00 07:30 07:38 Temperature Pulse Rate 73 72 Pulse Rate [ 78 Anterior Bilateral Throughout] Pulse Rate [ 78 Anterior Bilateral] Pulse Rate [ From Monitor] Respiratory 18 23 Rate Respiratory 23 Rate [Anterior Bilateral Throughout] Respiratory 23 Rate [Anterior Bilateral] Respiratory Rate [ Generalized] Blood Pressure 130/57 118/46 O2 Sat by Pulse 99 98 Oximetry O2 Sat by Pulse Oximetry [ Assessment] 09/22/18 09/22/18 09/22/18 07:50 07:59 08:00 Temperature 98.7 F Pulse Rate 78 74 Pulse Rate [ 79 Anterior Bilateral Throughout] Pulse Rate [ 79 Anterior Bilateral] Pulse Rate [ 79 From Monitor] Respiratory 11 L 21 Rate Respiratory 22 Rate [Anterior Bilateral Throughout] Respiratory 22 Rate [Anterior Bilateral] Respiratory 22 Rate [ Generalized] Blood Pressure 118/46 119/51 O2 Sat by Pulse 100 99 Oximetry O2 Sat by Pulse Oximetry [ Assessment] 09/22/18 09/22/18 09/22/18 08:30 09:00 09:30 Temperature Pulse Rate 78 72 75 Pulse Rate [ Anterior Bilateral Throughout] Pulse Rate [ Anterior Bilateral] Pulse Rate [ From Monitor] Respiratory 20 22 18 Rate Respiratory Rate [Anterior Bilateral Throughout] Respiratory Rate [Anterior Bilateral] Respiratory Rate [ Generalized] Blood Pressure 114/46 125/53 138/62 O2 Sat by Pulse 98 99 98 Oximetry O2 Sat by Pulse Oximetry [ Assessment] 09/22/18 09/22/18 09/22/18 09:41 10:01 10:31 Temperature Pulse Rate 75 78 78 Pulse Rate [ Anterior Bilateral Throughout] Pulse Rate [ Anterior Bilateral] Pulse Rate [ From Monitor] Respiratory 21 19 Rate Respiratory Rate [Anterior Bilateral Throughout] Respiratory Rate [Anterior Bilateral] Respiratory Rate [ Generalized] Blood Pressure 138/62 152/119 152/119 O2 Sat by Pulse 100 97 Oximetry O2 Sat by Pulse Oximetry [ Assessment] 09/22/18 09/22/18 09/22/18 11:00 11:01 11:31 Temperature Pulse Rate 78 75 Pulse Rate [ Anterior Bilateral Throughout] Pulse Rate [ Anterior Bilateral] Pulse Rate [ From Monitor] Respiratory 19 11 L Rate Respiratory Rate [Anterior Bilateral Throughout] Respiratory Rate [Anterior Bilateral] Respiratory Rate [ Generalized] Blood Pressure 152/119 152/119 O2 Sat by Pulse 99 99 96 Oximetry O2 Sat by Pulse Oximetry [ Assessment] 09/22/18 09/22/18 09/22/18 12:00 12:01 12:28 Temperature 98.2 F Pulse Rate 70 79 Pulse Rate [ Anterior Bilateral Throughout] Pulse Rate [ Anterior Bilateral] Pulse Rate [ From Monitor] Respiratory 20 19 Rate Respiratory Rate [Anterior Bilateral Throughout] Respiratory Rate [Anterior Bilateral] Respiratory 20 Rate [ Generalized] Blood Pressure 122/102 O2 Sat by Pulse 100 Oximetry O2 Sat by Pulse Oximetry [ Assessment] 09/22/18 09/22/18 09/22/18 12:31 13:40 13:58 Temperature Pulse Rate 74 Pulse Rate [ 73 72 Anterior Bilateral Throughout] Pulse Rate [ 73 72 Anterior Bilateral] Pulse Rate [ From Monitor] Respiratory 13 Rate Respiratory 17 22 Rate [Anterior Bilateral Throughout] Respiratory 17 22 Rate [Anterior Bilateral] Respiratory Rate [ Generalized] Blood Pressure 115/60 O2 Sat by Pulse 100 Oximetry O2 Sat by Pulse Oximetry [ Assessment] - Labs CBC & Chem 7: 09/21/18 04:35 09/22/18 04:11 Labs: Abnormal lab results 09/22/18 09/22/18 Range/Units 04:11 12:30 BUN 21 H (7-17) mg/dL Creatinine 0.6 L (0.7-1.2) mg/dL POC Glucose 120 H (70-105)
[2018-09-22] MEDS: POTASSIUM CHLORIDE PO SCH (21:56)
[2018-09-23] MEDS: DUONEB *Not for PRN Use IH SCH ×2 (01:12→07:58)
[2018-09-23] MEDS: HumaLOG SUB-Q SCH ×4 (05:46→18:34)
[2018-09-23] MEDS: APRESOLINE PO SCH ×2 (06:14→14:40)
[2018-09-23] MEDS: BROVANA NEBU IH SCH ×2 (07:58→19:25)
[2018-09-23] MEDS: PULMICORT IH SCH ×2 (07:58→19:25)
--- NOTE | 2018-09-23 08:19 | Hem/Onc Progress Note ---
Assessment and Plan #. Bilateral posterior tibial and peroneal vein deep venous thrombosis, left leg edema. Arixtra was being used. - back on same #. h/o Thrombocytopenia. The patient was on heparin-based treatment. Later fondaparinux. HIT negative, plt now better #. Anemia. At admission, hemoglobin was normal. The patient received blood transfusion. deficiency workup low iron - Ferritin - b12 - folate normal . There may be a bleeding component. s/p Iv iron trial #. Pulmonary embolism study is negative. #. h/o Camryn infection. #. Chronic obstructive pulmonary disease. #. History of renal failure. Nephrology following. #. Respiratory failure, on ventilator. History of cardiomyopathy. - s/p trach 09/23 - leg dvt. peg tube done trach+ pt was HIT negative - Patient Problems (1) Thrombocytopenia Current Visit: Yes Status: Acute (2) DVT (deep venous thrombosis) Current Visit: Yes Status: Acute (3) Anemia Current Visit: Yes Status: Acute Subjective Date of service: 09/23/18 Principal diagnosis: anemia - dvt Interval history: pt alert - moves extremities Objective - Constitutional Vitals: Last Vital Signs Temp 99.7 F H 09/23/18 03:11 Pulse 92 H 09/23/18 07:59 Resp 16 09/23/18 07:59 BP 165/84 09/23/18 07:45 Pulse Ox 97 09/23/18 07:54 Pain Intensity (0-10): denies any pain General appearance: no acute distress Performance status: 4-completely disabled - EENT Eyes: EOM intact ENT: edentulous Lymph node exam: negative cervical - Respiratory Respiratory effort: Positive: normal, other (trach) Respiratory: bilateral: CTA (anteriorly) - Cardiovascular Heart Sounds: Present: S1 & S2 Extremities: No edema - Gastrointestinal General gastrointestinal: Present: soft, non-tender, other (peg+) Rectal Exam: deferred - Genitourinary Female genitourinary: Present: deferred - Integumentary Integumentary: warm - Musculoskeletal Musculoskeletal: generalized weakness - Neurologic Neurologic: moves all extremities - Labs Lab Results: Laboratory Results - last 24 hr 09/22/18 09/22/18 09/23/18 12:30 17:54 05:29 POC Glucose 120 H 122 H 163 H Medications & Allergies - Medications Allergies/Adverse Reactions: Allergies No Known Allergies Allergy (Unverified 08/15/18 16:49) Home Medications: Home Medications Medication Instructions Recorded Confirmed Last Taken Type Carvedilol 6.25 mg PO BID 08/15/18 08/15/18 Unknown History DULoxetine 60 mg PO QDAY 08/15/18 08/15/18 Unknown History Gabapentin 600 mg PO Q6HR PRN 08/15/18 08/15/18 Unknown History Methylphenidate 5 mg PO TID 08/15/18 08/15/18 Unknown History Morphabond ER 60 mg PO Q12HR 08/15/18 08/15/18 Unknown History Pravastatin Sodium 10 mg PO QDAY 08/15/18 08/15/18 Unknown History Tizanidine HCl 4 mg PO Q12HR 08/15/18 08/15/18 Unknown History oxyCODONE /ACETAMINOPHEN 7.5 - 325 mg PO Q8HR 08/15/18 08/15/18 Unknown History ALBUTEROL Inhaler(NF) 90 mcg IH TID 08/29/18 08/29/18 Unknown History Omeprazole-Bicarb 40-1,100 Cap 40 mg PO DAILY 08/29/18 08/29/18 Unknown History Active Medications: Generic Name Dose Route Start Last Admin Trade Name Freq PRN Reason Stop Dose Admin Acetaminophen 650 mg 08/15/18 22:12 09/18/18 00:26 Tylenol PO 650 mg Q4H PRN Administration Pain MILD(1-3)/Fever >100.5/MONDRAGON Albuterol 2.5 mg 08/17/18 17:00 Proventil IH Q3HRT PRN Shortness Of Breath Albuterol/Ipratropium 1 ampul 08/20/18 14:00 09/23/18 07:58 Duoneb *Not For Prn Use* IH 1 ampul Q6HRT LAMAR Administration Lipase/Protease/Amylase 1 each 09/17/18 09:06 Pancresam Elizabeth 10,500 Unit FEEDTUBE PRN PRN For Clogged Feeding Tube Apixaban 10 mg 09/22/18 10:00 09/22/18 21:57 Eliquis PO 09/28/18 22:01 10 mg Q12HR LAMAR Administration Apixaban 5 mg 09/29/18 10:00 Eliquis PO Q12HR LAMAR Arformoterol Tartrate 15 mcg 08/18/18 20:00 09/23/18 07:58 Brovana Nebu IH Not Given Q12HRT [facility] Budesonide 0.5 mg 08/18/18 20:00 09/23/18 07:58 Pulmicort IH 0.5 mg Q12HRT [facility] Administration Carvedilol 3.125 mg 09/20/18 10:00 09/22/18 21:59 Coreg PO 3.125 mg BID LAMAR Administration Clonidine HCl 0.2 mg 09/25/18 10:00 Catapres-Tts Patch TD Pearson LAMAR Famotidine 20 mg 09/05/18 10:00 09/22/18 22:09 Pepcid PO 20 mg BID LAMAR Administration Furosemide 20 mg 09/18/18 12:00 09/22/18 09:41 Lasix IV 20 mg QDAY [facility] Administration Hydralazine HCl 10 mg 08/19/18 13:59 09/19/18 02:27 Apresoline IV 10 mg Q3H PRN Administration Hydralazine HCl 25 mg 09/01/18 14:00 09/23/18 06:14 Apresoline PO 25 mg Q8HR [facility] Administration Hydromorphone HCl 2 mg 09/06/18 12:00 09/22/18 23:11 Dilaudid PO 2 mg Q6HR [facility] Administration Hydrophilic Ointment 1 applic 08/15/18 21:55 09/01/18 09:07 Vaseline Lip Therapy TP 1 applic Q2HR PRN Administration Dry Lips Insulin Human Lispro 0 unit 09/04/18 18:00 09/23/18 05:46 Humalog SUB-Q Not Given Q6HR [facility] Protocol Metoclopramide HCl 5 mg 08/15/18 22:50 09/17/18 10:48 Reglan IV 5 mg Q6H PRN Administration Nausea And Vomiting Midazolam HCl 1 mg 09/07/18 09:23 09/19/18 03:01 Versed IV 1 mg Q4H PRN Administration AGITATION Ondansetron HCl 4 mg 08/15/18 22:12 08/31/18 17:52 Zofran IV 4 mg Q8H PRN Administration Nausea And Vomiting Potassium Chloride 40 meq 09/20/18 22:00 09/22/18 21:56 Potassium Chloride PO 40 meq QDAY@2200 LAMAR Administration Quetiapine Fumarate 100 mg 09/19/18 22:00 09/22/18 21:59 Seroquel PO 100 mg BID LAMAR Administration Quetiapine Fumarate 100 mg 09/19/18 22:00 09/22/18 22:05 Seroquel PO 100 mg QHS LAMAR Administration Simple Syrup 15 ml 09/17/18 09:06 Simple Syrup FEEDTUBE PRN PRN Hypoglycemia Simple Syrup 30 ml 09/17/18 09:06 Simple Syrup FEEDTUBE PRN PRN Hypoglycemia Sodium Bicarbonate 325 mg 09/17/18 09:06 Sodium Bicarbonate FEEDTUBE PRN PRN For Clogged Feeding Tube Sodium Chloride 10 ml 08/15/18 22:12 09/17/18 21:51 Sodium Chloride Flush Syringe 10 Ml IV 10 ml PRN PRN Administration LINE FLUSH
[2018-09-23] MEDS: COREG PO SCH (09:42)
[2018-09-23] MEDS: LASIX IV SCH (09:42)
[2018-09-23] MEDS: PEPCID PO SCH (09:43)
[2018-09-23] MEDS: ELIQUIS PO SCH (09:50)
--- NOTE | 2018-09-23 10:47 | Progress Note ---
Assessment and Plan Severe sepsis with septic shock Intermittent fevers and hypotension -Fungemia on Micafungin Acute hypoxic-hypercapnic respiratory failure on NIPPV h/o COPD Acute kidney injury, rising creatinine levels Acute encephalopathy( toxic-metabolic)- much improved Aspiration pneumonia/CAP New onset cardiomyopathy, LVEF 25-30% this admission Previous echo 03/30/2016 at [facility] revealed normal LVEF Previous stress MPI 03/29/2016 at [facility] revealed no ischemia Abnormal ECG showing LBBB, chronic Anemia s/p PRBC with appropriate response -Recent EGD at [facility] 08/08/2018 revealing irregular Z line, gastritis and small hiatal hernia Recent colonoscopy at [facility] 08/08/2018 revealing sigmoid polyp, transverse colon polyps, inflamed hemorrhoids and diverticulosis E.coli/Staph pneumonia Thrombocytopenia resolved -Continue MVS -VAP bundle addressed -Wean supplemental oxygen to keep O2 sats 88-90% -Oxygen restrictive strategies -Antibiotics/antifungal ,completed course. Continue to monitor clinically -Enteric feeding with aspiration precautions, s/p PEG - agitation and analgesia management -Monitor renal indices -Cardioprotective measures -Stress ulcer prophylaxis -Anticoagulated on Eliquis -Aspiration precautions -Accuchecks with glycemic control. Target glucose of 140-180 mg/dL -Continue bronchodilators with pulmonary hygiene per RT -Maintenance of sleep -wake cycle -Mobility program -Influenza and pneumonia vaccination per protocol ..care plan discussed at length with RN/RT at the bedside ...discussed care plan with ICU team on ICU-IDT rounds Discussed with the son at the bedside. Updated him re care plan Discharge planning- LTACH placement Continue all care PROGNOSIS :GUARDED CONDITION: CRITICAL CODE STATUS: FULL CODE The high probability of a clinically significant, sudden or life-threatening deterioration of the [respiratory, cardiovascular, renal] system(s) required my full and direct attention, intervention and personal management. The aggregate critical care time was [35] minutes without overlap. Time includes spent on; [x] Data Review and interpretation [x] Patient assessment and monitoring of vital signs [x] Documentation [x] Medication orders and management Subjective Date of service: 09/23/18 Principal diagnosis: anemia - dvt Interval history: Follow up: Aspiration PNA, Abnormal CXR, Hypotension, Acute renal failure, Acute encephaloapthy, Acute hypoxemic respiratory failure on MVS s/p trachesotomy Seen and examined. Vitals, labs, medications, chart and imaging reviewed. 24 hours events reviewed. s/p trachesotomy to MVS, tolerated some PSV Agitation much improved per RN. No fevers, no vomiting, spontaneous eye opening, moving all extremities Son visiting at the bedside Objective Vital Signs - 12hr 09/22/18 09/22/18 09/22/18 22:54 23:00 23:23 Temperature 98.6 F Pulse Rate 82 86 Pulse Rate [ Anterior Bilateral] Pulse Rate [ From Monitor] Respiratory 19 20 Rate Respiratory Rate [Anterior Bilateral] Respiratory Rate [ Generalized] Blood Pressure 162/84 162/84 O2 Sat by Pulse 97 98 Oximetry O2 Sat by Pulse Oximetry [ Assessment] 09/22/18 09/22/18 09/23/18 23:24 23:31 00:01 Temperature Pulse Rate 76 89 86 Pulse Rate [ Anterior Bilateral] Pulse Rate [ 71 From Monitor] Respiratory 21 19 15 Rate Respiratory Rate [Anterior Bilateral] Respiratory 20 Rate [ Generalized] Blood Pressure 161/68 158/69 O2 Sat by Pulse 96 97 96 Oximetry O2 Sat by Pulse Oximetry [ Assessment] 09/23/18 09/23/18 09/23/18 00:30 01:01 01:12 Temperature Pulse Rate 83 91 H Pulse Rate [ 86 Anterior Bilateral] Pulse Rate [ From Monitor] Respiratory 20 21 Rate Respiratory 25 H Rate [Anterior Bilateral] Respiratory Rate [ Generalized] Blood Pressure 159/76 159/74 O2 Sat by Pulse 97 98 Oximetry O2 Sat by Pulse Oximetry [ Assessment] 09/23/18 09/23/18 09/23/18 01:21 01:31 02:00 Temperature Pulse Rate 89 91 H Pulse Rate [ 90 Anterior Bilateral] Pulse Rate [ From Monitor] Respiratory 17 19 Rate Respiratory 20 Rate [Anterior Bilateral] Respiratory Rate [ Generalized] Blood Pressure 146/81 142/82 O2 Sat by Pulse 96 97 Oximetry O2 Sat by Pulse Oximetry [ Assessment] 09/23/18 09/23/18 09/23/18 02:31 03:01 03:11 Temperature 99.7 F H Pulse Rate 93 H 86 Pulse Rate [ Anterior Bilateral] Pulse Rate [ From Monitor] Respiratory 21 18 Rate Respiratory Rate [Anterior Bilateral] Respiratory Rate [ Generalized] Blood Pressure 165/97 150/78 O2 Sat by Pulse 96 94 Oximetry O2 Sat by Pulse Oximetry [ Assessment] 09/23/18 09/23/18 09/23/18 03:25 03:30 04:00 Temperature Pulse Rate 86 86 87 Pulse Rate [ Anterior Bilateral] Pulse Rate [ 71 From Monitor] Respiratory 22 21 Rate Respiratory Rate [Anterior Bilateral] Respiratory 21 Rate [ Generalized] Blood Pressure 150/78 134/77 133/76 O2 Sat by Pulse 96 97 97 Oximetry O2 Sat by Pulse Oximetry [ Assessment] 09/23/18 09/23/18 09/23/18 04:31 05:01 05:30 Temperature Pulse Rate 85 83 87 Pulse Rate [ Anterior Bilateral] Pulse Rate [ From Monitor] Respiratory 19 22 21 Rate Respiratory Rate [Anterior Bilateral] Respiratory Rate [ Generalized] Blood Pressure 125/83 153/81 159/74 O2 Sat by Pulse 97 98 97 Oximetry O2 Sat by Pulse Oximetry [ Assessment] 09/23/18 09/23/18 09/23/18 06:01 06:14 06:31 Temperature Pulse Rate 87 74 89 Pulse Rate [ Anterior Bilateral] Pulse Rate [ From Monitor] Respiratory 18 18 Rate Respiratory Rate [Anterior Bilateral] Respiratory Rate [ Generalized] Blood Pressure 158/86 123/75 158/86 O2 Sat by Pulse 96 95 Oximetry O2 Sat by Pulse Oximetry [ Assessment] 09/23/18 09/23/18 09/23/18 07:00 07:30 07:45 Temperature Pulse Rate 84 86 94 H Pulse Rate [ Anterior Bilateral] Pulse Rate [ From Monitor] Respiratory 22 26 H Rate Respiratory Rate [Anterior Bilateral] Respiratory Rate [ Generalized] Blood Pressure 164/78 165/84 165/84 O2 Sat by Pulse 98 100 98 Oximetry O2 Sat by Pulse Oximetry [ Assessment] 09/23/18 09/23/18 09/23/18 07:54 07:58 07:59 Temperature Pulse Rate Pulse Rate [ 91 H 92 H Anterior Bilateral] Pulse Rate [ From Monitor] Respiratory Rate Respiratory 25 H 16 Rate [Anterior Bilateral] Respiratory Rate [ Generalized] Blood Pressure O2 Sat by Pulse Oximetry O2 Sat by Pulse 97 Oximetry [ Assessment] 09/23/18 09/23/18 09/23/18 08:00 08:31 09:01 Temperature 98.0 F Pulse Rate 95 H 91 H 92 H Pulse Rate [ Anterior Bilateral] Pulse Rate [ 95 H From Monitor] Respiratory 24 22 24 Rate Respiratory Rate [Anterior Bilateral] Respiratory Rate [ Generalized] Blood Pressure 160/94 155/71 125/89 O2 Sat by Pulse 94 96 96 Oximetry O2 Sat by Pulse Oximetry [ Assessment] 09/23/18 09/23/18 09/23/18 09:30 09:42 10:01 Temperature Pulse Rate 97 H 102 H 97 H Pulse Rate [ Anterior Bilateral] Pulse Rate [ From Monitor] Respiratory 21 20 Rate Respiratory Rate [Anterior Bilateral] Respiratory Rate [ Generalized] Blood Pressure 170/89 170/89 148/59 O2 Sat by Pulse 94 97 Oximetry O2 Sat by Pulse Oximetry [ Assessment] 09/23/18 10:31 Temperature Pulse Rate 82 Pulse Rate [ Anterior Bilateral] Pulse Rate [ From Monitor] Respiratory 23 Rate Respiratory Rate [Anterior Bilateral] Respiratory Rate [ Generalized] Blood Pressure 150/67 O2 Sat by Pulse 99 Oximetry O2 Sat by Pulse Oximetry [ Assessment] Constitutional: no acute distress, other (elderly looking CF, normocephalic and atraumatic) Eyes: non-icteric ENT: oropharynx moist, other (s/p tracheostomy to MVS) Neck: supple, no lymphadenopathy, no JVD, other (no thyromegaly) Effort: normal Ascultation: Bilateral: diminished breath sounds, rales, rhonchi Percussion: Bilateral: not dull Cardiovascular: regular rate and rhythm, other (S1,S2, no murmurs) Gastrointestinal: normoactive bowel sounds, soft, non-tender, non-distended Integumentary: normal Extremities: no cyanosis, no edema, no ischemia or petechiae Neurologic: normal mental status, non-focal exam (grossly), pupils equal and round, motor strength normal and Psychiatric: mood appropriate, affect normal CBC and BMP: 09/21/18 04:35 09/22/18 04:11 ABG, PT/INR, D-dimer: ABG POC ABG pH 7.391 (7.35-7.45) 09/22/18 05:50 POC ABG pCO2 36.3 (35-45) 09/22/18 05:50 POC ABG pO2 95 (80-105) 09/22/18 05:50 POC ABG HCO3 22.0 (22-26 mml/L) 09/22/18 05:50 POC ABG Total CO2 23 (23-27mmol/L) 09/22/18 05:50 POC ABG O2 Sat 97 09/22/18 05:50 PT/INR, D-dimer PT 14.2 Sec. (12.2-14.9) 09/14/18 04:55 INR 1.04 (0.87-1.13) 09/14/18 04:55 D-Dimer 2768.33 ng/mlDDU (0-234) H 08/15/18 18:31 Abnormal lab findings: Abnormal Labs 08/15/18 08/15/18 08/15/18 17:52 17:52 17:52 WBC 12.7 H RBC 3.25 L Hgb Hct RDW Plt Count Lymph % (Auto) [place] % (Auto) Lymph # [place] # Seg Neutrophils % Seg Neuts % (Manual) Lymphocytes % (Manual) 6.0 L Nucleated RBC % Seg Neutrophils # Seg Neutrophils # Man Lymphocytes # (Manual) 0.8 L D-Dimer POC ABG pH POC ABG pCO2 POC ABG pO2 VBG pH Sodium Potassium 3.4 L Chloride 94.6 L Carbon Dioxide 17 L BUN 67 H Creatinine 3.5 H Glucose 131 H POC Glucose Hemoglobin A1c Lactic Acid 5.20 H* Calcium 7.6 L Phosphorus Magnesium Iron TIBC AST 887 H ALT 316 H Troponin T C-Reactive Protein Total Protein Albumin 3.1 L Triglycerides LDL Cholesterol Direct HDL Cholesterol Urine pH Urine WBC (Auto) Vancomycin Trough Salicylates Acetaminophen % CD3 Cells % CD19 Cells Absolute CD19 Count Miscellaneous Test Crossmatch 08/15/18 08/15/18 08/15/18 18:11 18:19 18:31 WBC RBC Hgb Hct RDW Plt Count Lymph % (Auto) [place] % (Auto) Lymph # [place] # Seg Neutrophils % Seg Neuts % (Manual) Lymphocytes % (Manual) Nucleated RBC % Seg Neutrophils # Seg Neutrophils # Man Lymphocytes # (Manual) D-Dimer 2768.33 H POC ABG pH 7.173 L POC ABG pCO2 47.8 H POC ABG pO2 177 H VBG pH 7.187 L* Sodium Potassium Chloride Carbon Dioxide BUN Creatinine Glucose POC Glucose Hemoglobin A1c Lactic Acid Calcium Phosphorus Magnesium Iron TIBC AST ALT Troponin T C-Reactive Protein Total Protein Albumin Triglycerides LDL Cholesterol Direct HDL Cholesterol Urine pH Urine WBC (Auto) Vancomycin Trough Salicylates Acetaminophen % CD3 Cells % CD19 Cells Absolute CD19 Count Miscellaneous Test Crossmatch 08/15/18 08/15/18 08/15/18 18:31 19:14 19:14 WBC RBC Hgb Hct RDW Plt Count Lymph % (Auto) [place] % (Auto) Lymph # [place] # Seg Neutrophils % Seg Neuts % (Manual) Lymphocytes % (Manual) Nucleated RBC % Seg Neutrophils # Seg Neutrophils # Man Lymphocytes # (Manual) D-Dimer POC ABG pH POC ABG pCO2 POC ABG pO2 VBG pH Sodium Potassium Chloride Carbon Dioxide BUN Creatinine Glucose POC Glucose Hemoglobin A1c Lactic Acid 2.70 H* Calcium Phosphorus Magnesium Iron TIBC AST ALT Troponin T 0.454 H* C-Reactive Protein Total Protein Albumin Triglycerides 356 H LDL Cholesterol Direct 4 L HDL Cholesterol 10 L Urine pH Urine WBC (Auto) Vancomycin Trough Salicylates < 0.3 L Acetaminophen % CD3 Cells % CD19 Cells Absolute CD19 Count Miscellaneous Test Crossmatch 08/15/18 08/15/18 08/15/18 19:14 19:15 23:09 WBC RBC Hgb Hct RDW Plt Count Lymph % (Auto) [place] % (Auto) Lymph # [place] # Seg Neutrophils % Seg Neuts % (Manual) Lymphocytes % (Manual) Nucleated RBC % Seg Neutrophils # Seg Neutrophils # Man Lymphocytes # (Manual) D-Dimer POC ABG pH POC ABG pCO2 POC ABG pO2 VBG pH Sodium Potassium Chloride Carbon Dioxide BUN Creatinine Glucose POC Glucose Hemoglobin A1c Lactic Acid 3.20 H* Calcium Phosphorus Magnesium Iron TIBC AST ALT Troponin T C-Reactive Protein Total Protein Albumin Triglycerides LDL Cholesterol Direct HDL Cholesterol Urine pH Urine WBC (Auto) 17.0 H Vancomycin Trough Salicylates Acetaminophen < 5.0 L % CD3 Cells % CD19 Cells Absolute CD19 Count Miscellaneous Test Crossmatch 08/15/18 08/16/18 08/16/18 23:09 01:41 05:38 WBC RBC 3.07 L Hgb 9.8 L Hct 28.7 L RDW Plt Count Lymph % (Auto) [place] % (Auto) Lymph # [place] # Seg Neutrophils % Seg Neuts % (Manual) 84.0 H Lymphocytes % (Manual) 6.0 L Nucleated RBC % 4.0 H Seg Neutrophils # Seg Neutrophils # Man Lymphocytes # (Manual) 0.5 L D-Dimer POC ABG pH 7.323 L POC ABG pCO2 34.7 L POC ABG pO2 78 L VBG pH Sodium Potassium Chloride Carbon Dioxide BUN Creatinine Glucose POC Glucose Hemoglobin A1c 6.4 H Lactic Acid Calcium Phosphorus Magnesium Iron TIBC AST ALT Troponin T C-Reactive Protein Total Protein Albumin Triglycerides LDL Cholesterol Direct HDL Cholesterol Urine pH Urine WBC (Auto) Vancomycin Trough Salicylates Acetaminophen % CD3 Cells % CD19 Cells Absolute CD19 Count Miscellaneous Test Crossmatch 08/16/18 08/16/18 08/17/18 05:38 22:43 03:42 WBC RBC Hgb Hct RDW Plt Count Lymph % (Auto) [place] % (Auto) Lymph # [place] # Seg Neutrophils % Seg Neuts % (Manual) Lymphocytes % (Manual) Nucleated RBC % Seg Neutrophils # Seg Neutrophils # Man Lymphocytes # (Manual) D-Dimer POC ABG pH POC ABG pCO2 POC ABG pO2 VBG pH Sodium Potassium 2.9 L* 3.1 L 2.9 L* Chloride 108.8 H 111.9 H Carbon Dioxide 17 L 19 L 21 L BUN 62 H 40 H 33 H Creatinine 2.0 H Glucose 139 H 145 H POC Glucose Hemoglobin A1c Lactic Acid Calcium 7.8 L 8.3 L Phosphorus 1.50 L Magnesium Iron TIBC AST 619 H ALT 353 H Troponin T C-Reactive Protein Total Protein 6.1 L Albumin 2.8 L Triglycerides LDL Cholesterol Direct HDL Cholesterol Urine pH Urine WBC (Auto) Vancomycin Trough Salicylates Acetaminophen % CD3 Cells % CD19 Cells Absolute CD19 Count Miscellaneous Test Crossmatch 08/17/18 08/17/18 08/18/18 11:02 16:42 03:28 WBC RBC Hgb Hct RDW Plt Count Lymph % (Auto) [place] % (Auto) Lymph # [place] # Seg Neutrophils % Seg Neuts % (Manual) Lymphocytes % (Manual) Nucleated RBC % Seg Neutrophils # Seg Neutrophils # Man Lymphocytes # (Manual) D-Dimer POC ABG pH 7.483 H 7.499 H POC ABG pCO2 POC ABG pO2 VBG pH Sodium 147 H Potassium 3.2 L Chloride 115.8 H Carbon Dioxide BUN 23 H Creatinine Glucose 121 H POC Glucose Hemoglobin A1c Lactic Acid Calcium 8.1 L Phosphorus 2.30 L D Magnesium Iron TIBC AST ALT Troponin T C-Reactive Protein Total Protein Albumin Triglycerides LDL Cholesterol Direct HDL Cholesterol Urine pH Urine WBC (Auto) Vancomycin Trough Salicylates Acetaminophen % CD3 Cells % CD19 Cells Absolute CD19 Count Miscellaneous Test Crossmatch 08/18/18 08/18/18 08/18/18 04:10 13:39 13:39 WBC RBC Hgb Hct RDW Plt Count Lymph % (Auto) [place] % (Auto) Lymph # [place] # Seg Neutrophils % Seg Neuts % (Manual) Lymphocytes % (Manual) Nucleated RBC % Seg Neutrophils # Seg Neutrophils # Man Lymphocytes # (Manual) D-Dimer POC ABG pH POC ABG pCO2 POC ABG pO2 VBG pH Sodium 147 H Potassium 3.3 L Chloride 111.9 H Carbon Dioxide BUN 21 H Creatinine Glucose 113 H POC Glucose Hemoglobin A1c Lactic Acid Calcium Phosphorus 1.50 L D Magnesium Iron TIBC AST ALT Troponin T 0.317 H* D C-Reactive Protein 10.70 H Total Protein Albumin Triglycerides LDL Cholesterol Direct HDL Cholesterol Urine pH Urine WBC (Auto) Vancomycin Trough Salicylates Acetaminophen % CD3 Cells % CD19 Cells Absolute CD19 Count Miscellaneous Test Crossmatch 08/18/18 08/19/18 08/19/18 16:51 03:47 04:15 WBC RBC Hgb Hct RDW Plt Count Lymph % (Auto) [place] % (Auto) Lymph # [place] # Seg Neutrophils % Seg Neuts % (Manual) Lymphocytes % (Manual) Nucleated RBC % Seg Neutrophils # Seg Neutrophils # Man Lymphocytes # (Manual) D-Dimer POC ABG pH 7.454 H 7.482 H POC ABG pCO2 POC ABG pO2 65 L VBG pH Sodium 154 H Potassium 3.3 L Chloride 115.1 H Carbon Dioxide BUN 19 H Creatinine Glucose 117 H POC Glucose Hemoglobin A1c Lactic Acid Calcium 7.8 L Phosphorus Magnesium Iron TIBC AST ALT Troponin T C-Reactive Protein Total Protein Albumin Triglycerides LDL Cholesterol Direct HDL Cholesterol Urine pH Urine WBC (Auto) Vancomycin Trough Salicylates Acetaminophen % CD3 Cells % CD19 Cells Absolute CD19 Count Miscellaneous Test Crossmatch 08/19/18 08/19/18 08/20/18 14:32 16:18 03:51 WBC RBC Hgb Hct RDW Plt Count Lymph % (Auto) [place] % (Auto) Lymph # [place] # Seg Neutrophils % Seg Neuts % (Manual) Lymphocytes % (Manual) Nucleated RBC % Seg Neutrophils # Seg Neutrophils # Man Lymphocytes # (Manual) D-Dimer POC ABG pH 7.483 H POC ABG pCO2 33.4 L POC ABG pO2 51 L 74 L VBG pH Sodium Potassium Chloride Carbon Dioxide BUN Creatinine Glucose POC Glucose Hemoglobin A1c Lactic Acid Calcium Phosphorus Magnesium Iron TIBC AST ALT Troponin T C-Reactive Protein Total Protein Albumin Triglycerides LDL Cholesterol Direct HDL Cholesterol Urine pH Urine WBC (Auto) Vancomycin Trough Salicylates Acetaminophen % CD3 Cells 44 L % CD19 Cells 41 H Absolute CD19 Count 1290 H Miscellaneous Test Crossmatch 08/20/18 08/21/18 08/21/18 05:25 03:54 05:45 WBC 24.1 H RBC 2.83 L Hgb 8.8 L Hct 26.7 L RDW 15.7 H Plt Count 127 L Lymph % (Auto) [place] % (Auto) Lymph # [place] # Seg Neutrophils % Seg Neuts % (Manual) 94.0 H Lymphocytes % (Manual) 4.0 L Nucleated RBC % 1.0 H Seg Neutrophils # Seg Neutrophils # Man 22.7 H Lymphocytes # (Manual) 1.0 L D-Dimer POC ABG pH POC ABG pCO2 31.9 L POC ABG pO2 66 L VBG pH Sodium 146 H D Potassium Chloride 111.2 H Carbon Dioxide BUN 24 H Creatinine Glucose 141 H POC Glucose Hemoglobin A1c Lactic Acid Calcium 8.1 L Phosphorus Magnesium Iron TIBC AST 65 H ALT 104 H Troponin T C-Reactive Protein Total Protein 6.2 L Albumin 2.6 L Triglycerides LDL Cholesterol Direct HDL Cholesterol Urine pH Urine WBC (Auto) Vancomycin Trough Salicylates Acetaminophen % CD3 Cells % CD19 Cells Absolute CD19 Count Miscellaneous Test Crossmatch 08/21/18 08/22/18 08/22/18 05:45 06:20 06:45 WBC RBC Hgb Hct RDW Plt Count Lymph % (Auto) [place] % (Auto) Lymph # [place] # Seg Neutrophils % Seg Neuts % (Manual) Lymphocytes % (Manual) Nucleated RBC % Seg Neutrophils # Seg Neutrophils # Man Lymphocytes # (Manual) D-Dimer POC ABG pH POC ABG pCO2 32.9 L POC ABG pO2 VBG pH Sodium Potassium 3.5 L Chloride 109.4 H 112.4 H Carbon Dioxide 21 L 20 L BUN 50 H 61 H Creatinine 2.0 H D 1.9 H Glucose 144 H 154 H POC Glucose Hemoglobin A1c Lactic Acid Calcium 7.6 L 7.8 L Phosphorus Magnesium Iron TIBC AST ALT Troponin T C-Reactive Protein Total Protein 5.3 L Albumin 2.1 L Triglycerides LDL Cholesterol Direct HDL Cholesterol Urine pH Urine WBC (Auto) Vancomycin Trough Salicylates Acetaminophen % CD3 Cells % CD19 Cells Absolute CD19 Count Miscellaneous Test Crossmatch 08/22/18 08/22/18 08/22/18 06:45 15:29 18:40 WBC RBC Hgb Hct RDW Plt Count Lymph % (Auto) [place] % (Auto) Lymph # [place] # Seg Neutrophils % Seg Neuts % (Manual) Lymphocytes % (Manual) Nucleated RBC % Seg Neutrophils # Seg Neutrophils # Man Lymphocytes # (Manual) D-Dimer POC ABG pH POC ABG pCO2 POC ABG pO2 VBG pH Sodium Potassium Chloride Carbon Dioxide BUN Creatinine Glucose POC Glucose 169 H Hemoglobin A1c Lactic Acid Calcium Phosphorus Magnesium Iron TIBC AST ALT Troponin T C-Reactive Protein 4.70 H Total Protein Albumin Triglycerides 197 H LDL Cholesterol Direct HDL Cholesterol Urine pH Urine WBC (Auto) Vancomycin Trough Salicylates Acetaminophen % CD3 Cells % CD19 Cells Absolute CD19 Count Miscellaneous Test Crossmatch 08/23/18 08/23/18 08/23/18 03:59 21:19 Unknown WBC 12.1 H RBC 2.29 L Hgb 7.1 L Hct 21.7 L RDW 15.7 H Plt Count 106 L Lymph % (Auto) [place] % (Auto) Lymph # [place] # Seg Neutrophils % Seg Neuts % (Manual) 92.0 H Lymphocytes % (Manual) 4.0 L Nucleated RBC % Seg Neutrophils # Seg Neutrophils # Man 11.1 H Lymphocytes # (Manual) 0.5 L D-Dimer POC ABG pH 7.306 L POC ABG pCO2 31.3 L POC ABG pO2 119 H 75 L VBG pH Sodium Potassium Chloride Carbon Dioxide BUN Creatinine Glucose POC Glucose Hemoglobin A1c Lactic Acid Calcium Phosphorus Magnesium Iron TIBC AST ALT Troponin T C-Reactive Protein Total Protein Albumin Triglycerides LDL Cholesterol Direct HDL Cholesterol Urine pH Urine WBC (Auto) Vancomycin Trough Salicylates Acetaminophen % CD3 Cells % CD19 Cells Absolute CD19 Count Miscellaneous Test Crossmatch 08/23/18 08/24/18 08/24/18 Unknown 04:18 08:30 WBC 12.8 H RBC 2.24 L Hgb 7.0 L Hct 21.1 L RDW Plt Count Lymph % (Auto) [place] % (Auto) Lymph # [place] # Seg Neutrophils % Seg Neuts % (Manual) 93.0 H Lymphocytes % (Manual) 6.0 L Nucleated RBC % Seg Neutrophils # Seg Neutrophils # Man 11.9 H Lymphocytes # (Manual) 0.8 L D-Dimer POC ABG pH POC ABG pCO2 POC ABG pO2 78 L VBG pH Sodium Potassium Chloride 115.7 H Carbon Dioxide 21 L BUN 64 H Creatinine 2.0 H Glucose 149 H POC Glucose Hemoglobin A1c Lactic Acid Calcium 7.5 L Phosphorus Magnesium Iron TIBC AST ALT Troponin T C-Reactive Protein Total Protein 4.8 L Albumin 2.0 L Triglycerides LDL Cholesterol Direct HDL Cholesterol Urine pH Urine WBC (Auto) Vancomycin Trough Salicylates Acetaminophen % CD3 Cells % CD19 Cells Absolute CD19 Count Miscellaneous Test Crossmatch 08/24/18 08/24/18 08/24/18 08:30 17:44 18:28 WBC RBC Hgb Hct RDW Plt Count Lymph % (Auto) [place] % (Auto) Lymph # [place] # Seg Neutrophils % Seg Neuts % (Manual) Lymphocytes % (Manual) Nucleated RBC % Seg Neutrophils # Seg Neutrophils # Man Lymphocytes # (Manual) D-Dimer POC ABG pH 7.474 H POC ABG pCO2 POC ABG pO2 61 L VBG pH Sodium Potassium Chloride 108.3 H Carbon Dioxide 20 L BUN 65 H Creatinine 2.0 H Glucose 167 H POC Glucose 164 H Hemoglobin A1c Lactic Acid Calcium 7.7 L Phosphorus Magnesium Iron TIBC AST ALT Troponin T C-Reactive Protein Total Protein 5.3 L Albumin 2.2 L Triglycerides LDL Cholesterol Direct HDL Cholesterol Urine pH Urine WBC (Auto) Vancomycin Trough Salicylates Acetaminophen % CD3 Cells % CD19 Cells Absolute CD19 Count Miscellaneous Test Crossmatch 08/25/18 08/25/18 08/25/18 03:35 05:20 05:20 WBC RBC Hgb 6.7 L Hct 21.0 L RDW Plt Count Lymph % (Auto) [place] % (Auto) Lymph # [place] # Seg Neutrophils % Seg Neuts % (Manual) Lymphocytes % (Manual) Nucleated RBC % Seg Neutrophils # Seg Neutrophils # Man Lymphocytes # (Manual) D-Dimer POC ABG pH POC ABG pCO2 POC ABG pO2 79 L VBG pH Sodium Potassium Chloride Carbon Dioxide 21 L BUN 71 H Creatinine 3.1 H D Glucose 171 H POC Glucose Hemoglobin A1c Lactic Acid Calcium 7.5 L Phosphorus Magnesium Iron TIBC AST ALT Troponin T C-Reactive Protein Total Protein Albumin Triglycerides LDL Cholesterol Direct HDL Cholesterol Urine pH Urine WBC (Auto) Vancomycin Trough Salicylates Acetaminophen % CD3 Cells % CD19 Cells Absolute CD19 Count Miscellaneous Test Crossmatch 08/25/18 08/25/18 08/25/18 05:20 08:52 12:42 WBC RBC Hgb Hct RDW Plt Count Lymph % (Auto) [place] % (Auto) Lymph # [place] # Seg Neutrophils % Seg Neuts % (Manual) Lymphocytes % (Manual) Nucleated RBC % Seg Neutrophils # Seg Neutrophils # Man Lymphocytes # (Manual) D-Dimer POC ABG pH POC ABG pCO2 POC ABG pO2 VBG pH Sodium Potassium Chloride Carbon Dioxide BUN Creatinine Glucose POC Glucose 166 H Hemoglobin A1c Lactic Acid Calcium Phosphorus Magnesium Iron TIBC AST ALT Troponin T C-Reactive Protein 5.00 H Total Protein Albumin Triglycerides LDL Cholesterol Direct HDL Cholesterol Urine pH Urine WBC (Auto) Vancomycin Trough Salicylates Acetaminophen % CD3 Cells % CD19 Cells Absolute CD19 Count Miscellaneous Test Crossmatch See Detail 08/25/18 08/26/18 08/26/18 18:05 00:13 04:53 WBC RBC Hgb Hct RDW Plt Count Lymph % (Auto) [place] % (Auto) Lymph # [place] # Seg Neutrophils % Seg Neuts % (Manual) Lymphocytes % (Manual) Nucleated RBC % Seg Neutrophils # Seg Neutrophils # Man Lymphocytes # (Manual) D-Dimer POC ABG pH POC ABG pCO2 30.9 L POC ABG pO2 70 L VBG pH Sodium Potassium Chloride Carbon Dioxide BUN Creatinine Glucose POC Glucose 121 H 164 H Hemoglobin A1c Lactic Acid Calcium Phosphorus Magnesium Iron TIBC AST ALT Troponin T C-Reactive Protein Total Protein Albumin Triglycerides LDL Cholesterol Direct HDL Cholesterol Urine pH Urine WBC (Auto) Vancomycin Trough Salicylates Acetaminophen % CD3 Cells % CD19 Cells Absolute CD19 Count Miscellaneous Test Crossmatch 08/26/18 08/26/18 08/26/18 05:42 06:00 06:00 WBC RBC 2.62 L Hgb 7.7 L Hct 23.0 L RDW 22.0 H Plt Count Lymph % (Auto) 6.3 L [place] % (Auto) Lymph # 0.7 L [place] # Seg Neutrophils % 88.1 H Seg Neuts % (Manual) Lymphocytes % (Manual) Nucleated RBC % Seg Neutrophils # 9.6 H Seg Neutrophils # Man Lymphocytes # (Manual) D-Dimer POC ABG pH POC ABG pCO2 POC ABG pO2 VBG pH Sodium Potassium Chloride Carbon Dioxide 21 L BUN 70 H Creatinine 3.3 H Glucose 146 H POC Glucose 149 H Hemoglobin A1c Lactic Acid Calcium 8.0 L Phosphorus Magnesium Iron TIBC AST ALT Troponin T C-Reactive Protein Total Protein Albumin Triglycerides LDL Cholesterol Direct HDL Cholesterol Urine pH Urine WBC (Auto) Vancomycin Trough Salicylates Acetaminophen % CD3 Cells % CD19 Cells Absolute CD19 Count Miscellaneous Test Crossmatch 08/26/18 08/26/18 08/27/18 11:37 23:54 04:35 WBC RBC 2.50 L Hgb 7.6 L Hct 22.3 L RDW 21.8 H Plt Count Lymph % (Auto) 7.3 L [place] % (Auto) Lymph # 0.7 L [place] # Seg Neutrophils % 85.6 H Seg Neuts % (Manual) Lymphocytes % (Manual) Nucleated RBC % Seg Neutrophils # 8.6 H Seg Neutrophils # Man Lymphocytes # (Manual) D-Dimer POC ABG pH POC ABG pCO2 POC ABG pO2 VBG pH Sodium Potassium Chloride Carbon Dioxide BUN Creatinine Glucose POC Glucose 183 H 150 H Hemoglobin A1c Lactic Acid Calcium Phosphorus Magnesium Iron TIBC AST ALT Troponin T C-Reactive Protein Total Protein Albumin Triglycerides LDL Cholesterol Direct HDL Cholesterol Urine pH Urine WBC (Auto) Vancomycin Trough Salicylates Acetaminophen % CD3 Cells % CD19 Cells Absolute CD19 Count Miscellaneous Test Crossmatch 08/27/18 08/27/18 08/28/18 04:35 12:17 04:43 WBC RBC Hgb Hct RDW Plt Count Lymph % (Auto) [place] % (Auto) Lymph # [place] # Seg Neutrophils % Seg Neuts % (Manual) Lymphocytes % (Manual) Nucleated RBC % Seg Neutrophils # Seg Neutrophils # Man Lymphocytes # (Manual) D-Dimer POC ABG pH POC ABG pCO2 32.1 L 33.8 L POC ABG pO2 68 L 78 L VBG pH Sodium Potassium Chloride Carbon Dioxide 19 L BUN 67 H Creatinine 2.9 H Glucose 155 H POC Glucose Hemoglobin A1c Lactic Acid Calcium Phosphorus 4.70 H Magnesium Iron TIBC AST ALT Troponin T C-Reactive Protein Total Protein Albumin Triglycerides LDL Cholesterol Direct HDL Cholesterol Urine pH Urine WBC (Auto) Vancomycin Trough Salicylates Acetaminophen % CD3 Cells % CD19 Cells Absolute CD19 Count Miscellaneous Test Crossmatch 08/28/18 08/28/18 08/28/18 05:03 05:20 05:20 WBC RBC 2.43 L Hgb 7.4 L Hct 21.8 L RDW 20.8 H Plt Count Lymph % (Auto) 7.6 L [place] % (Auto) 8.7 H Lymph # 0.7 L [place] # Seg Neutrophils % 82.9 H Seg Neuts % (Manual) Lymphocytes % (Manual) Nucleated RBC % Seg Neutrophils # Seg Neutrophils # Man Lymphocytes # (Manual) D-Dimer POC ABG pH POC ABG pCO2 POC ABG pO2 VBG pH Sodium Potassium Chloride 107.8 H Carbon Dioxide 21 L BUN 55 H Creatinine 2.0 H Glucose 177 H POC Glucose 160 H Hemoglobin A1c Lactic Acid Calcium Phosphorus Magnesium Iron TIBC AST ALT Troponin T C-Reactive Protein Total Protein Albumin Triglycerides LDL Cholesterol Direct HDL Cholesterol Urine pH Urine WBC (Auto) Vancomycin Trough Salicylates Acetaminophen % CD3 Cells % CD19 Cells Absolute CD19 Count Miscellaneous Test Crossmatch 08/28/18 08/28/18 08/28/18 12:18 18:58 22:31 WBC RBC Hgb Hct RDW Plt Count Lymph % (Auto) [place] % (Auto) Lymph # [place] # Seg Neutrophils % Seg Neuts % (Manual) Lymphocytes % (Manual) Nucleated RBC % Seg Neutrophils # Seg Neutrophils # Man Lymphocytes # (Manual) D-Dimer POC ABG pH POC ABG pCO2 34.4 L POC ABG pO2 67 L VBG pH Sodium Potassium Chloride Carbon Dioxide BUN Creatinine Glucose POC Glucose 164 H 149 H Hemoglobin A1c Lactic Acid Calcium Phosphorus Magnesium Iron TIBC AST ALT Troponin T C-Reactive Protein Total Protein Albumin Triglycerides LDL Cholesterol Direct HDL Cholesterol Urine pH Urine WBC (Auto) Vancomycin Trough Salicylates Acetaminophen % CD3 Cells % CD19 Cells Absolute CD19 Count Miscellaneous Test Crossmatch 08/28/18 08/29/18 08/29/18 23:33 05:25 05:25 WBC RBC 2.30 L Hgb 7.0 L Hct 20.9 L RDW 21.0 H Plt Count Lymph % (Auto) 11.5 L [place] % (Auto) 9.2 H Lymph # 0.8 L [place] # Seg Neutrophils % 78.8 H Seg Neuts % (Manual) Lymphocytes % (Manual) Nucleated RBC % Seg Neutrophils # Seg Neutrophils # Man Lymphocytes # (Manual) D-Dimer POC ABG pH POC ABG pCO2 POC ABG pO2 VBG pH Sodium Potassium Chloride 111.1 H Carbon Dioxide BUN 55 H Creatinine 1.8 H Glucose 162 H POC Glucose 143 H Hemoglobin A1c Lactic Acid Calcium Phosphorus Magnesium Iron TIBC AST 46 H ALT < 5 L Troponin T C-Reactive Protein Total Protein 5.7 L Albumin 2.1 L Triglycerides LDL Cholesterol Direct HDL Cholesterol Urine pH Urine WBC (Auto) Vancomycin Trough Salicylates Acetaminophen % CD3 Cells % CD19 Cells Absolute CD19 Count Miscellaneous Test Crossmatch 08/29/18 08/29/18 08/30/18 18:19 23:35 05:03 WBC RBC Hgb Hct RDW Plt Count Lymph % (Auto) [place] % (Auto) Lymph # [place] # Seg Neutrophils % Seg Neuts % (Manual) Lymphocytes % (Manual) Nucleated RBC % Seg Neutrophils # Seg Neutrophils # Man Lymphocytes # (Manual) D-Dimer POC ABG pH POC ABG pCO2 POC ABG pO2 VBG pH Sodium Potassium Chloride Carbon Dioxide BUN Creatinine Glucose POC Glucose 155 H 139 H 122 H Hemoglobin A1c Lactic Acid Calcium Phosphorus Magnesium Iron TIBC AST ALT Troponin T C-Reactive Protein Total Protein Albumin Triglycerides LDL Cholesterol Direct HDL Cholesterol Urine pH Urine WBC (Auto) Vancomycin Trough Salicylates Acetaminophen % CD3 Cells % CD19 Cells Absolute CD19 Count Miscellaneous Test Crossmatch 08/30/18 08/30/18 08/30/18 09:33 09:33 09:54 WBC RBC 2.58 L Hgb 7.9 L Hct 23.5 L RDW 20.9 H Plt Count Lymph % (Auto) 8.0 L [place] % (Auto) 9.7 H Lymph # 0.8 L [place] # 1.0 H Seg Neutrophils % 82.1 H Seg Neuts % (Manual) Lymphocytes % (Manual) Nucleated RBC % Seg Neutrophils # 8.2 H Seg Neutrophils # Man Lymphocytes # (Manual) D-Dimer POC ABG pH POC ABG pCO2 POC ABG pO2 VBG pH Sodium 146 H Potassium Chloride 110.7 H Carbon Dioxide BUN 56 H Creatinine 1.9 H Glucose 145 H POC Glucose Hemoglobin A1c Lactic Acid Calcium Phosphorus 4.60 H Magnesium Iron TIBC AST ALT < 5 L Troponin T C-Reactive Protein Total Protein Albumin 2.7 L Triglycerides LDL Cholesterol Direct HDL Cholesterol Urine pH Urine WBC (Auto) Vancomycin Trough Salicylates Acetaminophen % CD3 Cells % CD19 Cells Absolute CD19 Count Miscellaneous Test Flexitest 1 H Crossmatch 08/30/18 08/30/18 08/30/18 09:57 11:26 18:08 WBC RBC Hgb Hct RDW Plt Count Lymph % (Auto) [place] % (Auto) Lymph # [place] # Seg Neutrophils % Seg Neuts % (Manual) Lymphocytes % (Manual) Nucleated RBC % Seg Neutrophils # Seg Neutrophils # Man Lymphocytes # (Manual) D-Dimer POC ABG pH POC ABG pCO2 POC ABG pO2 VBG pH Sodium Potassium Chloride Carbon Dioxide BUN Creatinine Glucose POC Glucose 149 H 156 H Hemoglobin A1c Lactic Acid Calcium Phosphorus Magnesium Iron TIBC AST ALT Troponin T C-Reactive Protein Total Protein Albumin Triglycerides LDL Cholesterol Direct HDL Cholesterol Urine pH Urine WBC (Auto) Vancomycin Trough Salicylates Acetaminophen % CD3 Cells % CD19 Cells Absolute CD19 Count Miscellaneous Test Flexitest 1 H Crossmatch 08/30/18 08/31/18 08/31/18 23:14 05:16 08:40 WBC RBC Hgb Hct RDW Plt Count Lymph % (Auto) [place] % (Auto) Lymph # [place] # Seg Neutrophils % Seg Neuts % (Manual) Lymphocytes % (Manual) Nucleated RBC % Seg Neutrophils # Seg Neutrophils # Man Lymphocytes # (Manual) D-Dimer POC ABG pH POC ABG pCO2 POC ABG pO2 VBG pH Sodium 151 H Potassium Chloride 113.8 H Carbon Dioxide BUN 45 H Creatinine Glucose 144 H POC Glucose 117 H 133 H Hemoglobin A1c Lactic Acid Calcium Phosphorus Magnesium Iron TIBC AST ALT Troponin T C-Reactive Protein Total Protein Albumin Triglycerides LDL Cholesterol Direct HDL Cholesterol Urine pH Urine WBC (Auto) Vancomycin Trough Salicylates Acetaminophen % CD3 Cells % CD19 Cells Absolute CD19 Count Miscellaneous Test Crossmatch 08/31/18 09/01/18 09/01/18 23:46 04:45 04:45 WBC RBC 2.38 L Hgb 7.3 L Hct 22.1 L RDW 21.1 H Plt Count Lymph % (Auto) [place] % (Auto) Lymph # [place] # Seg Neutrophils % Seg Neuts % (Manual) 93.0 H Lymphocytes % (Manual) 4.0 L Nucleated RBC % Seg Neutrophils # Seg Neutrophils # Man 10.1 H Lymphocytes # (Manual) 0.4 L D-Dimer POC ABG pH POC ABG pCO2 POC ABG pO2 VBG pH Sodium 156 H Potassium 3.1 L Chloride 115.2 H Carbon Dioxide BUN 34 H Creatinine Glucose 125 H POC Glucose 124 H Hemoglobin A1c Lactic Acid Calcium Phosphorus Magnesium Iron TIBC AST ALT Troponin T C-Reactive Protein Total Protein Albumin Triglycerides LDL Cholesterol Direct HDL Cholesterol Urine pH Urine WBC (Auto) Vancomycin Trough Salicylates Acetaminophen % CD3 Cells % CD19 Cells Absolute CD19 Count Miscellaneous Test Crossmatch 09/01/18 09/01/18 09/01/18 05:34 11:20 17:52 WBC RBC Hgb Hct RDW Plt Count Lymph % (Auto) [place] % (Auto) Lymph # [place] # Seg Neutrophils % Seg Neuts % (Manual) Lymphocytes % (Manual) Nucleated RBC % Seg Neutrophils # Seg Neutrophils # Man Lymphocytes # (Manual) D-Dimer POC ABG pH 7.553 H POC ABG pCO2 POC ABG pO2 74 L VBG pH Sodium Potassium Chloride Carbon Dioxide BUN Creatinine Glucose POC Glucose 128 H 146 H Hemoglobin A1c Lactic Acid Calcium Phosphorus Magnesium Iron TIBC AST ALT Troponin T C-Reactive Protein Total Protein Albumin Triglycerides LDL Cholesterol Direct HDL Cholesterol Urine pH Urine WBC (Auto) Vancomycin Trough Salicylates Acetaminophen % CD3 Cells % CD19 Cells Absolute CD19 Count Miscellaneous Test Crossmatch 09/01/18 09/02/18 09/02/18 17:52 04:13 04:58 WBC 16.4 H RBC 2.64 L Hgb 7.9 L Hct 24.3 L RDW 20.8 H Plt Count Lymph % (Auto) [place] % (Auto) Lymph # [place] # Seg Neutrophils % Seg Neuts % (Manual) 96.0 H Lymphocytes % (Manual) 1.0 L Nucleated RBC % Seg Neutrophils # Seg Neutrophils # Man 15.7 H Lymphocytes # (Manual) 0.2 L D-Dimer POC ABG pH 7.488 H POC ABG pCO2 POC ABG pO2 63 L VBG pH Sodium Potassium Chloride Carbon Dioxide BUN Creatinine Glucose POC Glucose 143 H Hemoglobin A1c Lactic Acid Calcium Phosphorus Magnesium Iron TIBC AST ALT Troponin T C-Reactive Protein Total Protein Albumin Triglycerides LDL Cholesterol Direct HDL Cholesterol Urine pH Urine WBC (Auto) Vancomycin Trough Salicylates Acetaminophen % CD3 Cells % CD19 Cells Absolute CD19 Count Miscellaneous Test Crossmatch 09/02/18 09/02/18 09/02/18 04:58 11:03 18:18 WBC RBC Hgb Hct RDW Plt Count Lymph % (Auto) [place] % (Auto) Lymph # [place] # Seg Neutrophils % Seg Neuts % (Manual) Lymphocytes % (Manual) Nucleated RBC % Seg Neutrophils # Seg Neutrophils # Man Lymphocytes # (Manual) D-Dimer POC ABG pH 7.344 L POC ABG pCO2 52.8 H POC ABG pO2 VBG pH Sodium 158 H Potassium 2.9 L* Chloride 115.7 H Carbon Dioxide BUN 27 H Creatinine 0.6 L Glucose 128 H POC Glucose 121 H Hemoglobin A1c Lactic Acid Calcium Phosphorus Magnesium 1.60 L Iron TIBC AST 64 H ALT Troponin T C-Reactive Protein Total Protein Albumin 2.6 L Triglycerides LDL Cholesterol Direct HDL Cholesterol Urine pH Urine WBC (Auto) Vancomycin Trough Salicylates Acetaminophen % CD3 Cells % CD19 Cells Absolute CD19 Count Miscellaneous Test Crossmatch 09/02/18 09/03/1809/03/19 23:06 03:36 04:25 WBC RBC 2.20 L Hgb 6.7 L Hct 20.9 L RDW 21.1 H Plt Count Lymph % (Auto) [place] % (Auto) Lymph # [place] # Seg Neutrophils % Seg Neuts % (Manual) 90.0 H Lymphocytes % (Manual) 5.0 L Nucleated RBC % Seg Neutrophils # Seg Neutrophils # Man 8.7 H Lymphocytes # (Manual) 0.5 L D-Dimer POC ABG pH POC ABG pCO2 POC ABG pO2 54 L VBG pH Sodium Potassium Chloride Carbon Dioxide BUN Creatinine Glucose POC Glucose 121 H Hemoglobin A1c Lactic Acid Calcium Phosphorus Magnesium Iron TIBC AST ALT Troponin T C-Reactive Protein Total Protein Albumin Triglycerides LDL Cholesterol Direct HDL Cholesterol Urine pH Urine WBC (Auto) Vancomycin Trough Salicylates Acetaminophen % CD3 Cells % CD19 Cells Absolute CD19 Count Miscellaneous Test Crossmatch 09/03/18 09/03/18 09/03/18 04:25 05:45 10:24 WBC RBC Hgb Hct RDW Plt Count Lymph % (Auto) [place] % (Auto) Lymph # [place] # Seg Neutrophils % Seg Neuts % (Manual) Lymphocytes % (Manual) Nucleated RBC % Seg Neutrophils # Seg Neutrophils # Man Lymphocytes # (Manual) D-Dimer POC ABG pH POC ABG pCO2 POC ABG pO2 VBG pH Sodium 158 H Potassium 3.1 L Chloride 120.4 H Carbon Dioxide BUN 25 H Creatinine 0.6 L Glucose 127 H POC Glucose 178 H Hemoglobin A1c Lactic Acid Calcium 7.9 L Phosphorus Magnesium Iron TIBC AST ALT Troponin T C-Reactive Protein Total Protein 6.0 L Albumin 2.4 L Triglycerides LDL Cholesterol Direct HDL Cholesterol Urine pH Urine WBC (Auto) Vancomycin Trough Salicylates Acetaminophen % CD3 Cells % CD19 Cells Absolute CD19 Count Miscellaneous Test Crossmatch See Detail 09/03/18 09/03/18 09/04/18 11:27 23:09 04:42 WBC RBC Hgb Hct RDW Plt Count Lymph % (Auto) [place] % (Auto) Lymph # [place] # Seg Neutrophils % Seg Neuts % (Manual) Lymphocytes % (Manual) Nucleated RBC % Seg Neutrophils # Seg Neutrophils # Man Lymphocytes # (Manual) D-Dimer POC ABG pH 7.293 L POC ABG pCO2 50.2 H POC ABG pO2 VBG pH Sodium Potassium Chloride Carbon Dioxide BUN Creatinine Glucose POC Glucose 107 H 139 H Hemoglobin A1c Lactic Acid Calcium Phosphorus Magnesium Iron TIBC AST ALT Troponin T C-Reactive Protein Total Protein Albumin Triglycerides LDL Cholesterol Direct HDL Cholesterol Urine pH Urine WBC (Auto) Vancomycin Trough Salicylates Acetaminophen % CD3 Cells % CD19 Cells Absolute CD19 Count Miscellaneous Test Crossmatch 09/04/18 09/04/18 09/04/18 05:00 06:30 06:30 WBC RBC 2.32 L Hgb 7.0 L Hct 21.9 L RDW 20.2 H Plt Count Lymph % (Auto) [place] % (Auto) Lymph # [place] # Seg Neutrophils % 80.1 H Seg Neuts % (Manual) Lymphocytes % (Manual) Nucleated RBC % Seg Neutrophils # 8.2 H Seg Neutrophils # Man Lymphocytes # (Manual) D-Dimer POC ABG pH POC ABG pCO2 POC ABG pO2 VBG pH Sodium 150 H D Potassium Chloride 115.9 H Carbon Dioxide BUN 21 H Creatinine 0.6 L Glucose 125 H POC Glucose 154 H Hemoglobin A1c Lactic Acid Calcium 7.9 L Phosphorus Magnesium 1.50 L Iron TIBC AST ALT Troponin T C-Reactive Protein Total Protein Albumin Triglycerides LDL Cholesterol Direct HDL Cholesterol Urine pH Urine WBC (Auto) Vancomycin Trough Salicylates Acetaminophen % CD3 Cells % CD19 Cells Absolute CD19 Count Miscellaneous Test Crossmatch 09/04/18 09/04/18 09/04/18 11:20 11:51 18:27 WBC RBC Hgb Hct RDW Plt Count Lymph % (Auto) [place] % (Auto) Lymph # [place] # Seg Neutrophils % Seg Neuts % (Manual) Lymphocytes % (Manual) Nucleated RBC % Seg Neutrophils # Seg Neutrophils # Man Lymphocytes # (Manual) D-Dimer POC ABG pH 7.244 L POC ABG pCO2 54.2 H POC ABG pO2 62 L VBG pH Sodium Potassium Chloride Carbon Dioxide BUN Creatinine Glucose POC Glucose 156 H 129 H Hemoglobin A1c Lactic Acid Calcium Phosphorus Magnesium Iron TIBC AST ALT Troponin T C-Reactive Protein Total Protein Albumin Triglycerides LDL Cholesterol Direct HDL Cholesterol Urine pH Urine WBC (Auto) Vancomycin Trough Salicylates Acetaminophen % CD3 Cells % CD19 Cells Absolute CD19 Count Miscellaneous Test Crossmatch 09/05/18 09/05/18 09/05/18 03:46 04:00 04:00 WBC RBC 2.13 L Hgb 6.4 L Hct 20.1 L RDW 19.9 H Plt Count 117 L Lymph % (Auto) [place] % (Auto) Lymph # 0.9 L [place] # Seg Neutrophils % 81.7 H Seg Neuts % (Manual) Lymphocytes % (Manual) Nucleated RBC % Seg Neutrophils # Seg Neutrophils # Man Lymphocytes # (Manual) D-Dimer POC ABG pH 7.282 L POC ABG pCO2 57.3 H POC ABG pO2 124 H VBG pH Sodium Potassium Chloride 111.0 H Carbon Dioxide BUN 20 H Creatinine Glucose 130 H POC Glucose Hemoglobin A1c Lactic Acid Calcium 7.8 L Phosphorus Magnesium 1.60 L Iron TIBC AST ALT Troponin T C-Reactive Protein Total Protein Albumin Triglycerides LDL Cholesterol Direct HDL Cholesterol Urine pH Urine WBC (Auto) Vancomycin Trough Salicylates Acetaminophen % CD3 Cells % CD19 Cells Absolute CD19 Count Miscellaneous Test Crossmatch 09/05/18 09/05/18 09/05/18 12:15 17:24 23:24 WBC RBC Hgb Hct RDW Plt Count Lymph % (Auto) [place] % (Auto) Lymph # [place] # Seg Neutrophils % Seg Neuts % (Manual) Lymphocytes % (Manual) Nucleated RBC % Seg Neutrophils # Seg Neutrophils # Man Lymphocytes # (Manual) D-Dimer POC ABG pH POC ABG pCO2 POC ABG pO2 VBG pH Sodium Potassium Chloride Carbon Dioxide BUN Creatinine Glucose POC Glucose 143 H 116 H 116 H Hemoglobin A1c Lactic Acid Calcium Phosphorus Magnesium Iron TIBC AST ALT Troponin T C-Reactive Protein Total Protein Albumin Triglycerides LDL Cholesterol Direct HDL Cholesterol Urine pH Urine WBC (Auto) Vancomycin Trough Salicylates Acetaminophen % CD3 Cells % CD19 Cells Absolute CD19 Count Miscellaneous Test Crossmatch 09/06/18 09/06/18 09/06/18 03:33 04:20 04:20 WBC RBC 2.45 L Hgb 7.4 L Hct 23.0 L RDW 18.1 H Plt Count 99 L Lymph % (Auto) [place] % (Auto) Lymph # 1.0 L [place] # Seg Neutrophils % 78.0 H Seg Neuts % (Manual) Lymphocytes % (Manual) Nucleated RBC % Seg Neutrophils # Seg Neutrophils # Man Lymphocytes # (Manual) D-Dimer POC ABG pH 7.303 L POC ABG pCO2 49.2 H POC ABG pO2 73 L VBG pH Sodium Potassium Chloride 109.3 H Carbon Dioxide BUN 24 H Creatinine Glucose 108 H POC Glucose Hemoglobin A1c Lactic Acid Calcium 8.1 L Phosphorus Magnesium Iron TIBC AST ALT Troponin T C-Reactive Protein Total Protein Albumin Triglycerides LDL Cholesterol Direct HDL Cholesterol Urine pH Urine WBC (Auto) Vancomycin Trough Salicylates Acetaminophen % CD3 Cells % CD19 Cells Absolute CD19 Count Miscellaneous Test Crossmatch 09/06/18 09/06/18 09/06/18 04:55 11:29 14:40 WBC RBC Hgb Hct RDW Plt Count Lymph % (Auto) [place] % (Auto) Lymph # [place] # Seg Neutrophils % Seg Neuts % (Manual) Lymphocytes % (Manual) Nucleated RBC % Seg Neutrophils # Seg Neutrophils # Man Lymphocytes # (Manual) D-Dimer POC ABG pH POC ABG pCO2 POC ABG pO2 VBG pH Sodium Potassium Chloride Carbon Dioxide BUN Creatinine Glucose POC Glucose 124 H 149 H Hemoglobin A1c Lactic Acid Calcium Phosphorus Magnesium Iron TIBC AST ALT Troponin T C-Reactive Protein Total Protein Albumin Triglycerides LDL Cholesterol Direct HDL Cholesterol Urine pH Urine WBC (Auto) Vancomycin Trough 28.6 H Salicylates Acetaminophen % CD3 Cells % CD19 Cells Absolute CD19 Count Miscellaneous Test Crossmatch 09/06/18 09/06/18 09/07/18 17:43 20:08 00:39 WBC RBC Hgb Hct RDW Plt Count Lymph % (Auto) [place] % (Auto) Lymph # [place] # Seg Neutrophils % Seg Neuts % (Manual) Lymphocytes % (Manual) Nucleated RBC % Seg Neutrophils # Seg Neutrophils # Man Lymphocytes # (Manual) D-Dimer POC ABG pH POC ABG pCO2 POC ABG pO2 VBG pH Sodium Potassium Chloride Carbon Dioxide BUN Creatinine Glucose POC Glucose 138 H 118 H 131 H Hemoglobin A1c Lactic Acid Calcium Phosphorus Magnesium Iron TIBC AST ALT Troponin T C-Reactive Protein Total Protein Albumin Triglycerides LDL Cholesterol Direct HDL Cholesterol Urine pH Urine WBC (Auto) Vancomycin Trough Salicylates Acetaminophen % CD3 Cells % CD19 Cells Absolute CD19 Count Miscellaneous Test Crossmatch 09/07/18 09/07/18 09/07/18 05:40 05:40 12:03 WBC RBC 2.40 L Hgb 7.3 L Hct 22.5 L RDW 17.8 H Plt Count 92 L Lymph % (Auto) [place] % (Auto) Lymph # [place] # Seg Neutrophils % Seg Neuts % (Manual) 80.0 H Lymphocytes % (Manual) Nucleated RBC % 1.0 H Seg Neutrophils # Seg Neutrophils # Man Lymphocytes # (Manual) 0.8 L D-Dimer POC ABG pH POC ABG pCO2 POC ABG pO2 VBG pH Sodium Potassium Chloride 109.8 H Carbon Dioxide BUN 26 H Creatinine Glucose 118 H POC Glucose 145 H Hemoglobin A1c Lactic Acid Calcium 8.0 L Phosphorus Magnesium Iron 26 L TIBC 150 L AST 88 H ALT Troponin T C-Reactive Protein Total Protein 5.8 L Albumin 2.1 L Triglycerides LDL Cholesterol Direct HDL Cholesterol Urine pH Urine WBC (Auto) Vancomycin Trough Salicylates Acetaminophen % CD3 Cells % CD19 Cells Absolute CD19 Count Miscellaneous Test Crossmatch 09/07/18 09/07/18 09/08/18 17:39 23:21 05:48 WBC RBC Hgb Hct RDW Plt Count Lymph % (Auto) [place] % (Auto) Lymph # [place] # Seg Neutrophils % Seg Neuts % (Manual) Lymphocytes % (Manual) Nucleated RBC % Seg Neutrophils # Seg Neutrophils # Man Lymphocytes # (Manual) D-Dimer POC ABG pH POC ABG pCO2 POC ABG pO2 VBG pH Sodium Potassium Chloride Carbon Dioxide BUN Creatinine Glucose POC Glucose 128 H 136 H 129 H Hemoglobin A1c Lactic Acid Calcium Phosphorus Magnesium Iron TIBC AST ALT Troponin T C-Reactive Protein Total Protein Albumin Triglycerides LDL Cholesterol Direct HDL Cholesterol Urine pH Urine WBC (Auto) Vancomycin Trough Salicylates Acetaminophen % CD3 Cells % CD19 Cells Absolute CD19 Count Miscellaneous Test Crossmatch 09/08/18 09/08/18 09/08/18 06:17 10:06 10:42 WBC RBC Hgb Hct RDW Plt Count Lymph % (Auto) [place] % (Auto) Lymph # [place] # Seg Neutrophils % Seg Neuts % (Manual) Lymphocytes % (Manual) Nucleated RBC % Seg Neutrophils # Seg Neutrophils # Man Lymphocytes # (Manual) D-Dimer POC ABG pH 7.292 L 7.276 L POC ABG pCO2 56.9 H 65.1 H POC ABG pO2 VBG pH Sodium 146 H Potassium Chloride 109.1 H Carbon Dioxide BUN 28 H Creatinine Glucose 165 H POC Glucose Hemoglobin A1c Lactic Acid Calcium Phosphorus Magnesium Iron TIBC AST ALT Troponin T C-Reactive Protein Total Protein Albumin Triglycerides LDL Cholesterol Direct HDL Cholesterol Urine pH Urine WBC (Auto) Vancomycin Trough Salicylates Acetaminophen % CD3 Cells % CD19 Cells Absolute CD19 Count Miscellaneous Test Crossmatch 09/08/18 09/08/18 09/08/18 11:06 18:07 23:20 WBC RBC Hgb Hct RDW Plt Count Lymph % (Auto) [place] % (Auto) Lymph # [place] # Seg Neutrophils % Seg Neuts % (Manual) Lymphocytes % (Manual) Nucleated RBC % Seg Neutrophils # Seg Neutrophils # Man Lymphocytes # (Manual) D-Dimer POC ABG pH POC ABG pCO2 POC ABG pO2 VBG pH Sodium Potassium Chloride Carbon Dioxide BUN Creatinine Glucose POC Glucose 165 H 140 H 124 H Hemoglobin A1c Lactic Acid Calcium Phosphorus Magnesium Iron TIBC AST ALT Troponin T C-Reactive Protein Total Protein Albumin Triglycerides LDL Cholesterol Direct HDL Cholesterol Urine pH Urine WBC (Auto) Vancomycin Trough Salicylates Acetaminophen % CD3 Cells % CD19 Cells Absolute CD19 Count Miscellaneous Test Crossmatch 09/09/18 09/09/18 09/09/18 05:04 08:39 08:39 WBC RBC 2.60 L Hgb 8.1 L Hct 24.6 L RDW 17.9 H Plt Count Lymph % (Auto) [place] % (Auto) Lymph # [place] # Seg Neutrophils % Seg Neuts % (Manual) Lymphocytes % (Manual) Nucleated RBC % Seg Neutrophils # Seg Neutrophils # Man Lymphocytes # (Manual) D-Dimer POC ABG pH POC ABG pCO2 POC ABG pO2 VBG pH Sodium Potassium Chloride Carbon Dioxide BUN 32 H Creatinine Glucose 150 H POC Glucose 168 H Hemoglobin A1c Lactic Acid Calcium Phosphorus Magnesium Iron TIBC AST ALT Troponin T C-Reactive Protein Total Protein Albumin Triglycerides LDL Cholesterol Direct HDL Cholesterol Urine pH Urine WBC (Auto) Vancomycin Trough Salicylates Acetaminophen % CD3 Cells % CD19 Cells Absolute CD19 Count Miscellaneous Test Crossmatch 09/09/18 09/10/18 09/10/18 12:41 04:20 04:20 WBC RBC 2.49 L Hgb 7.7 L Hct 23.4 L RDW 18.0 H Plt Count Lymph % (Auto) 8.2 L [place] % (Auto) Lymph # 0.7 L [place] # Seg Neutrophils % 87.7 H Seg Neuts % (Manual) Lymphocytes % (Manual) Nucleated RBC % Seg Neutrophils # Seg Neutrophils # Man Lymphocytes # (Manual) D-Dimer POC ABG pH POC ABG pCO2 POC ABG pO2 VBG pH Sodium Potassium Chloride Carbon Dioxide 31 H BUN 39 H Creatinine Glucose 183 H POC Glucose 150 H Hemoglobin A1c Lactic Acid Calcium Phosphorus Magnesium Iron TIBC AST 85 H ALT 58 H Troponin T C-Reactive Protein Total Protein Albumin 2.5 L Triglycerides LDL Cholesterol Direct HDL Cholesterol Urine pH Urine WBC (Auto) Vancomycin Trough Salicylates Acetaminophen % CD3 Cells % CD19 Cells Absolute CD19 Count Miscellaneous Test Crossmatch 09/10/18 09/10/18 09/10/18 04:39 05:06 11:17 WBC RBC Hgb Hct RDW Plt Count Lymph % (Auto) [place] % (Auto) Lymph # [place] # Seg Neutrophils % Seg Neuts % (Manual) Lymphocytes % (Manual) Nucleated RBC % Seg Neutrophils # Seg Neutrophils # Man Lymphocytes # (Manual) D-Dimer POC ABG pH POC ABG pCO2 51.4 H POC ABG pO2 VBG pH Sodium Potassium Chloride Carbon Dioxide BUN Creatinine Glucose POC Glucose 185 H 159 H Hemoglobin A1c Lactic Acid Calcium Phosphorus Magnesium Iron TIBC AST ALT Troponin T C-Reactive Protein Total Protein Albumin Triglycerides LDL Cholesterol Direct HDL Cholesterol Urine pH Urine WBC (Auto) Vancomycin Trough Salicylates Acetaminophen % CD3 Cells % CD19 Cells Absolute CD19 Count Miscellaneous Test Crossmatch 09/10/18 09/11/18 09/11/18 16:57 00:17 01:10 WBC RBC Hgb Hct RDW Plt Count Lymph % (Auto) [place] % (Auto) Lymph # [place] # Seg Neutrophils % Seg Neuts % (Manual) Lymphocytes % (Manual) Nucleated RBC % Seg Neutrophils # Seg Neutrophils # Man Lymphocytes # (Manual) D-Dimer POC ABG pH POC ABG pCO2 POC ABG pO2 VBG pH Sodium Potassium Chloride Carbon Dioxide 34 H BUN 44 H Creatinine Glucose 154 H POC Glucose 177 H 163 H Hemoglobin A1c Lactic Acid Calcium Phosphorus Magnesium Iron TIBC AST 86 H ALT 68 H Troponin T C-Reactive Protein Total Protein Albumin 2.6 L Triglycerides LDL Cholesterol Direct HDL Cholesterol Urine pH Urine WBC (Auto) Vancomycin Trough Salicylates Acetaminophen % CD3 Cells % CD19 Cells Absolute CD19 Count Miscellaneous Test Crossmatch 09/11/18 09/11/18 09/11/18 01:10 06:03 09:00 WBC 13.7 H RBC 2.61 L Hgb 8.0 L Hct 24.6 L RDW 19.1 H Plt Count Lymph % (Auto) 6.1 L [place] % (Auto) Lymph # 0.8 L [place] # Seg Neutrophils % 87.7 H Seg Neuts % (Manual) Lymphocytes % (Manual) Nucleated RBC % Seg Neutrophils # 12.0 H Seg Neutrophils # Man Lymphocytes # (Manual) D-Dimer POC ABG pH POC ABG pCO2 POC ABG pO2 VBG pH Sodium Potassium Chloride Carbon Dioxide 33 H BUN 45 H Creatinine Glucose 147 H POC Glucose 180 H Hemoglobin A1c Lactic Acid Calcium Phosphorus Magnesium Iron TIBC AST ALT Troponin T C-Reactive Protein Total Protein Albumin Triglycerides LDL Cholesterol Direct HDL Cholesterol Urine pH Urine WBC (Auto) Vancomycin Trough Salicylates Acetaminophen % CD3 Cells % CD19 Cells Absolute CD19 Count Miscellaneous Test Crossmatch 09/11/18 09/11/18 09/11/18 11:14 11:31 17:11 WBC RBC Hgb Hct RDW Plt Count Lymph % (Auto) [place] % (Auto) Lymph # [place] # Seg Neutrophils % Seg Neuts % (Manual) Lymphocytes % (Manual) Nucleated RBC % Seg Neutrophils # Seg Neutrophils # Man Lymphocytes # (Manual) D-Dimer POC ABG pH 7.498 H POC ABG pCO2 46.3 H POC ABG pO2 VBG pH Sodium Potassium Chloride Carbon Dioxide BUN Creatinine Glucose POC Glucose 163 H 202 H Hemoglobin A1c Lactic Acid Calcium Phosphorus Magnesium Iron TIBC AST ALT Troponin T C-Reactive Protein Total Protein Albumin Triglycerides LDL Cholesterol Direct HDL Cholesterol Urine pH Urine WBC (Auto) Vancomycin Trough Salicylates Acetaminophen % CD3 Cells % CD19 Cells Absolute CD19 Count Miscellaneous Test Crossmatch 09/11/18 09/12/18 09/12/18 23:49 03:16 05:30 WBC RBC 2.36 L Hgb 7.3 L Hct 22.3 L RDW 18.4 H Plt Count Lymph % (Auto) 13.0 L [place] % (Auto) 9.3 H Lymph # 1.1 L [place] # Seg Neutrophils % 77.5 H Seg Neuts % (Manual) Lymphocytes % (Manual) Nucleated RBC % Seg Neutrophils # Seg Neutrophils # Man Lymphocytes # (Manual) D-Dimer POC ABG pH 7.517 H POC ABG pCO2 48.8 H POC ABG pO2 VBG pH Sodium Potassium Chloride Carbon Dioxide BUN Creatinine Glucose POC Glucose 163 H Hemoglobin A1c Lactic Acid Calcium Phosphorus Magnesium Iron TIBC AST ALT Troponin T C-Reactive Protein Total Protein Albumin Triglycerides LDL Cholesterol Direct HDL Cholesterol Urine pH Urine WBC (Auto) Vancomycin Trough Salicylates Acetaminophen % CD3 Cells % CD19 Cells Absolute CD19 Count Miscellaneous Test Crossmatch 09/12/18 09/12/18 09/12/18 05:30 06:07 11:36 WBC RBC Hgb Hct RDW Plt Count Lymph % (Auto) [place] % (Auto) Lymph # [place] # Seg Neutrophils % Seg Neuts % (Manual) Lymphocytes % (Manual) Nucleated RBC % Seg Neutrophils # Seg Neutrophils # Man Lymphocytes # (Manual) D-Dimer POC ABG pH POC ABG pCO2 POC ABG pO2 VBG pH Sodium 148 H Potassium Chloride Carbon Dioxide 36 H BUN 46 H Creatinine Glucose 152 H POC Glucose 172 H 212 H Hemoglobin A1c Lactic Acid Calcium Phosphorus Magnesium Iron TIBC AST ALT Troponin T C-Reactive Protein Total Protein Albumin Triglycerides LDL Cholesterol Direct HDL Cholesterol Urine pH Urine WBC (Auto) Vancomycin Trough Salicylates Acetaminophen % CD3 Cells % CD19 Cells Absolute CD19 Count Miscellaneous Test Crossmatch 09/12/18 09/12/18 09/13/18 18:02 23:19 03:55 WBC RBC Hgb Hct RDW Plt Count Lymph % (Auto) [place] % (Auto) Lymph # [place] # Seg Neutrophils % Seg Neuts % (Manual) Lymphocytes % (Manual) Nucleated RBC % Seg Neutrophils # Seg Neutrophils # Man Lymphocytes # (Manual) D-Dimer POC ABG pH 7.520 H POC ABG pCO2 48.0 H POC ABG pO2 58 L VBG pH Sodium Potassium Chloride Carbon Dioxide BUN Creatinine Glucose POC Glucose 142 H 161 H Hemoglobin A1c Lactic Acid Calcium Phosphorus Magnesium Iron TIBC AST ALT Troponin T C-Reactive Protein Total Protein Albumin Triglycerides LDL Cholesterol Direct HDL Cholesterol Urine pH Urine WBC (Auto) Vancomycin Trough Salicylates Acetaminophen % CD3 Cells % CD19 Cells Absolute CD19 Count Miscellaneous Test Crossmatch 09/13/18 09/13/18 09/13/18 05:11 05:25 05:25 WBC RBC 2.38 L Hgb 7.6 L Hct 22.4 L RDW 18.6 H Plt Count Lymph % (Auto) [place] % (Auto) Lymph # [place] # Seg Neutrophils % Seg Neuts % (Manual) Lymphocytes % (Manual) Nucleated RBC % Seg Neutrophils # Seg Neutrophils # Man Lymphocytes # (Manual) D-Dimer POC ABG pH POC ABG pCO2 POC ABG pO2 VBG pH Sodium Potassium 3.2 L Chloride 97.5 L Carbon Dioxide 38 H BUN 38 H Creatinine 0.6 L Glucose 120 H POC Glucose 139 H Hemoglobin A1c Lactic Acid Calcium 8.1 L Phosphorus Magnesium Iron TIBC AST 120 H ALT 124 H Troponin T C-Reactive Protein Total Protein 5.9 L Albumin 2.6 L Triglycerides LDL Cholesterol Direct HDL Cholesterol Urine pH Urine WBC (Auto) Vancomycin Trough Salicylates Acetaminophen % CD3 Cells % CD19 Cells Absolute CD19 Count Miscellaneous Test Crossmatch 09/13/18 09/13/18 09/13/18 11:31 17:46 23:23 WBC RBC Hgb Hct RDW Plt Count Lymph % (Auto) [place] % (Auto) Lymph # [place] # Seg Neutrophils % Seg Neuts % (Manual) Lymphocytes % (Manual) Nucleated RBC % Seg Neutrophils # Seg Neutrophils # Man Lymphocytes # (Manual) D-Dimer POC ABG pH POC ABG pCO2 POC ABG pO2 VBG pH Sodium Potassium Chloride Carbon Dioxide BUN Creatinine Glucose POC Glucose 160 H 145 H 135 H Hemoglobin A1c Lactic Acid Calcium Phosphorus Magnesium Iron TIBC AST ALT Troponin T C-Reactive Protein Total Protein Albumin Triglycerides LDL Cholesterol Direct HDL Cholesterol Urine pH Urine WBC (Auto) Vancomycin Trough Salicylates Acetaminophen % CD3 Cells % CD19 Cells Absolute CD19 Count Miscellaneous Test Crossmatch 09/14/18 09/14/18 09/14/18 03:56 04:55 04:55 WBC RBC 2.28 L Hgb 7.1 L Hct 21.4 L RDW 18.2 H Plt Count Lymph % (Auto) [place] % (Auto) Lymph # [place] # Seg Neutrophils % 76.4 H Seg Neuts % (Manual) Lymphocytes % (Manual) Nucleated RBC % Seg Neutrophils # Seg Neutrophils # Man Lymphocytes # (Manual) D-Dimer POC ABG pH 7.503 H POC ABG pCO2 49.1 H POC ABG pO2 79 L VBG pH Sodium Potassium Chloride 97.7 L Carbon Dioxide 35 H BUN 32 H Creatinine 0.6 L Glucose 114 H POC Glucose Hemoglobin A1c Lactic Acid Calcium Phosphorus Magnesium Iron TIBC AST 60 H ALT 88 H Troponin T C-Reactive Protein Total Protein 5.6 L Albumin 2.2 L Triglycerides LDL Cholesterol Direct HDL Cholesterol Urine pH Urine WBC (Auto) Vancomycin Trough Salicylates Acetaminophen % CD3 Cells % CD19 Cells Absolute CD19 Count Miscellaneous Test Crossmatch 09/14/18 09/14/18 09/14/18 05:14 12:00 12:27 WBC RBC Hgb Hct RDW Plt Count Lymph % (Auto) [place] % (Auto) Lymph # [place] # Seg Neutrophils % Seg Neuts % (Manual) Lymphocytes % (Manual) Nucleated RBC % Seg Neutrophils # Seg Neutrophils # Man Lymphocytes # (Manual) D-Dimer POC ABG pH POC ABG pCO2 POC ABG pO2 VBG pH Sodium Potassium Chloride Carbon Dioxide BUN Creatinine Glucose POC Glucose 115 H 125 H Hemoglobin A1c Lactic Acid Calcium Phosphorus Magnesium Iron TIBC AST ALT Troponin T C-Reactive Protein Total Protein Albumin Triglycerides LDL Cholesterol Direct HDL Cholesterol Urine pH Urine WBC (Auto) Vancomycin Trough Salicylates Acetaminophen % CD3 Cells % CD19 Cells Absolute CD19 Count Miscellaneous Test Crossmatch See Detail 09/14/18 09/15/18 09/15/18 17:54 03:49 04:10 WBC RBC 2.46 L Hgb 7.7 L Hct 23.0 L RDW 18.6 H Plt Count Lymph % (Auto) [place] % (Auto) Lymph # 1.1 L [place] # Seg Neutrophils % 74.2 H Seg Neuts % (Manual) Lymphocytes % (Manual) Nucleated RBC % Seg Neutrophils # Seg Neutrophils # Man Lymphocytes # (Manual) D-Dimer POC ABG pH POC ABG pCO2 58.2 H POC ABG pO2 VBG pH Sodium Potassium Chloride Carbon Dioxide BUN Creatinine Glucose POC Glucose 138 H Hemoglobin A1c Lactic Acid Calcium Phosphorus Magnesium Iron TIBC AST ALT Troponin T C-Reactive Protein Total Protein Albumin Triglycerides LDL Cholesterol Direct HDL Cholesterol Urine pH Urine WBC (Auto) Vancomycin Trough Salicylates Acetaminophen % CD3 Cells % CD19 Cells Absolute CD19 Count Miscellaneous Test Crossmatch 09/15/18 09/15/18 09/15/18 04:10 11:36 11:36 WBC RBC Hgb Hct RDW Plt Count Lymph % (Auto) [place] % (Auto) Lymph # [place] # Seg Neutrophils % Seg Neuts % (Manual) Lymphocytes % (Manual) Nucleated RBC % Seg Neutrophils # Seg Neutrophils # Man Lymphocytes # (Manual) D-Dimer POC ABG pH POC ABG pCO2 53.5 H POC ABG pO2 67 L VBG pH Sodium Potassium Chloride Carbon Dioxide 35 H BUN 21 H Creatinine Glucose POC Glucose 108 H Hemoglobin A1c Lactic Acid Calcium 7.9 L Phosphorus Magnesium Iron TIBC AST ALT Troponin T C-Reactive Protein Total Protein Albumin Triglycerides LDL Cholesterol Direct HDL Cholesterol Urine pH Urine WBC (Auto) Vancomycin Trough Salicylates Acetaminophen % CD3 Cells % CD19 Cells Absolute CD19 Count Miscellaneous Test Crossmatch 09/16/18 09/16/18 09/16/18 01:16 04:25 11:30 WBC RBC 2.77 L Hgb 8.5 L Hct 25.6 L RDW 17.9 H Plt Count Lymph % (Auto) [place] % (Auto) Lymph # [place] # Seg Neutrophils % Seg Neuts % (Manual) Lymphocytes % (Manual) Nucleated RBC % Seg Neutrophils # Seg Neutrophils # Man Lymphocytes # (Manual) D-Dimer POC ABG pH 7.489 H POC ABG pCO2 47.6 H POC ABG pO2 62 L VBG pH Sodium Potassium Chloride Carbon Dioxide BUN Creatinine Glucose POC Glucose 108 H Hemoglobin A1c Lactic Acid Calcium Phosphorus Magnesium Iron TIBC AST ALT Troponin T C-Reactive Protein Total Protein Albumin Triglycerides LDL Cholesterol Direct HDL Cholesterol Urine pH Urine WBC (Auto) Vancomycin Trough Salicylates Acetaminophen % CD3 Cells % CD19 Cells Absolute CD19 Count Miscellaneous Test Crossmatch 09/16/18 09/16/18 09/17/18 11:30 23:07 04:22 WBC RBC Hgb Hct RDW Plt Count Lymph % (Auto) [place] % (Auto) Lymph # [place] # Seg Neutrophils % Seg Neuts % (Manual) Lymphocytes % (Manual) Nucleated RBC % Seg Neutrophils # Seg Neutrophils # Man Lymphocytes # (Manual) D-Dimer POC ABG pH 7.576 H POC ABG pCO2 POC ABG pO2 58 L VBG pH Sodium Potassium 3.2 L Chloride 96.6 L Carbon Dioxide 34 H BUN Creatinine Glucose 128 H POC Glucose 147 H Hemoglobin A1c Lactic Acid Calcium Phosphorus Magnesium Iron TIBC AST ALT Troponin T C-Reactive Protein Total Protein Albumin Triglycerides LDL Cholesterol Direct HDL Cholesterol Urine pH Urine WBC (Auto) Vancomycin Trough Salicylates Acetaminophen % CD3 Cells % CD19 Cells Absolute CD19 Count Miscellaneous Test Crossmatch 09/17/18 09/17/18 09/17/18 05:50 10:15 14:59 WBC RBC Hgb Hct RDW Plt Count Lymph % (Auto) [place] % (Auto) Lymph # [place] # Seg Neutrophils % Seg Neuts % (Manual) Lymphocytes % (Manual) Nucleated RBC % Seg Neutrophils # Seg Neutrophils # Man Lymphocytes # (Manual) D-Dimer POC ABG pH POC ABG pCO2 POC ABG pO2 VBG pH Sodium Potassium 2.6 L* Chloride 96.3 L Carbon Dioxide 33 H BUN Creatinine Glucose 151 H POC Glucose 138 H 151 H Hemoglobin A1c Lactic Acid Calcium Phosphorus Magnesium Iron TIBC AST ALT Troponin T C-Reactive Protein Total Protein Albumin Triglycerides LDL Cholesterol Direct HDL Cholesterol Urine pH Urine WBC (Auto) Vancomycin Trough Salicylates Acetaminophen % CD3 Cells % CD19 Cells Absolute CD19 Count Miscellaneous Test Crossmatch 09/17/18 09/17/18 09/18/18 17:51 Unknown 00:11 WBC RBC Hgb Hct RDW Plt Count Lymph % (Auto) [place] % (Auto) Lymph # [place] # Seg Neutrophils % Seg Neuts % (Manual) Lymphocytes % (Manual) Nucleated RBC % Seg Neutrophils # Seg Neutrophils # Man Lymphocytes # (Manual) D-Dimer POC ABG pH POC ABG pCO2 POC ABG pO2 VBG pH Sodium Potassium 2.7 L* Chloride 97.5 L Carbon Dioxide 32 H BUN Creatinine Glucose 142 H POC Glucose 149 H 128 H Hemoglobin A1c Lactic Acid Calcium Phosphorus Magnesium Iron TIBC AST ALT Troponin T C-Reactive Protein Total Protein Albumin Triglycerides LDL Cholesterol Direct HDL Cholesterol Urine pH Urine WBC (Auto) Vancomycin Trough Salicylates Acetaminophen % CD3 Cells % CD19 Cells Absolute CD19 Count Miscellaneous Test Crossmatch 09/18/18 09/18/18 09/18/18 04:20 04:20 04:28 WBC RBC 2.94 L Hgb 9.0 L Hct 27.2 L RDW 17.7 H Plt Count Lymph % (Auto) [place] % (Auto) 12.1 H Lymph # 1.0 L [place] # Seg Neutrophils % 70.2 H Seg Neuts % (Manual) Lymphocytes % (Manual) Nucleated RBC % Seg Neutrophils # Seg Neutrophils # Man Lymphocytes # (Manual) D-Dimer POC ABG pH 7.563 H POC ABG pCO2 POC ABG pO2 VBG pH Sodium Potassium 3.0 L Chlor[place] Carbon Dioxide 33 H BUN Creatinine Glucose 133 H POC Glucose Hemoglobin A1c Lactic Acid Calcium Phosphorus Magnesium Iron TIBC AST ALT Troponin T C-Reactive Protein Total Protein Albumin Triglycerides LDL Cholesterol Direct HDL Cholesterol Urine pH Urine WBC (Auto) Vancomycin Trough Salicylates Acetaminophen % CD3 Cells % CD19 Cells Absolute CD19 Count Miscellaneous Test Crossmatch 09/18/18 09/18/18 09/19/18 06:19 14:45 00:13 WBC RBC Hgb Hct RDW Plt Count Lymph % (Auto) [place] % (Auto) Lymph # [place] # Seg Neutrophils % Seg Neuts % (Manual) Lymphocytes % (Manual) Nucleated RBC % Seg Neutrophils # Seg Neutrophils # Man Lymphocytes # (Manual) D-Dimer POC ABG pH POC ABG pCO2 POC ABG pO2 VBG pH Sodium Potassium Chloride Carbon Dioxide BUN Creatinine Glucose POC Glucose 140 H 164 H 111 H Hemoglobin A1c Lactic Acid Calcium Phosphorus Magnesium Iron TIBC AST ALT Troponin T C-Reactive Protein Total Protein Albumin Triglycerides LDL Cholesterol Direct HDL Cholesterol Urine pH Urine WBC (Auto) Vancomycin Trough Salicylates Acetaminophen % CD3 Cells % CD19 Cells Absolute CD19 Count Miscellaneous Test Crossmatch 09/19/18 09/19/18 09/19/18 03:38 05:08 05:20 WBC RBC Hgb Hct RDW Plt Count Lymph % (Auto) [place] % (Auto) Lymph # [place] # Seg Neutrophils % Seg Neuts % (Manual) Lymphocytes % (Manual) Nucleated RBC % Seg Neutrophils # Seg Neutrophils # Man Lymphocytes # (Manual) D-Dimer POC ABG pH 7.502 H POC ABG pCO2 34.6 L POC ABG pO2 73 L VBG pH Sodium Potassium 2.7 L* Chloride Carbon Dioxide BUN Creatinine 0.6 L Glucose 119 H POC Glucose 128 H Hemoglobin A1c Lactic Acid Calcium Phosphorus Magnesium Iron TIBC AST ALT Troponin T C-Reactive Protein Total Protein Albumin Triglycerides LDL Cholesterol Direct HDL Cholesterol Urine pH Urine WBC (Auto) Vancomycin Trough Salicylates Acetaminophen % CD3 Cells % CD19 Cells Absolute CD19 Count Miscellaneous Test Crossmatch 09/20/18 09/20/18 09/20/18 04:20 04:20 05:15 WBC RBC 2.89 L Hgb 9.1 L Hct 27.1 L RDW 17.1 H Plt Count Lymph % (Auto) 12.6 L [place] % (Auto) 10.7 H Lymph # 1.1 L [place] # 0.9 H Seg Neutrophils % 76.1 H Seg Neuts % (Manual) Lymphocytes % (Manual) Nucleated RBC % Seg Neutrophils # Seg Neutrophils # Man Lymphocytes # (Manual) D-Dimer POC ABG pH POC ABG pCO2 33.6 L POC ABG pO2 56 L VBG pH Sodium 136 L Potassium 2.9 L* Chloride Carbon Dioxide BUN Creatinine Glucose 116 H POC Glucose Hemoglobin A1c Lactic Acid Calcium Phosphorus Magnesium Iron TIBC AST ALT Troponin T C-Reactive Protein Total Protein Albumin Triglycerides LDL Cholesterol Direct HDL Cholesterol Urine pH Urine WBC (Auto) Vancomycin Trough Salicylates Acetaminophen % CD3 Cells % CD19 Cells Absolute CD19 Count Miscellaneous Test Crossmatch 09/20/18 09/20/18 09/20/18 11:26 16:10 23:50 WBC RBC Hgb Hct RDW Plt Count Lymph % (Auto) [place] % (Auto) Lymph # [place] # Seg Neutrophils % Seg Neuts % (Manual) Lymphocytes % (Manual) Nucleated RBC % Seg Neutrophils # Seg Neutrophils # Man Lymphocytes # (Manual) D-Dimer POC ABG pH POC ABG pCO2 POC ABG pO2 VBG pH Sodium Potassium Chloride Carbon Dioxide BUN Creatinine Glucose POC Glucose 163 H 119 H Hemoglobin A1c Lactic Acid Calcium Phosphorus Magnesium Iron TIBC AST ALT Troponin T C-Reactive Protein Total Protein Albumin Triglycerides LDL Cholesterol Direct HDL Cholesterol Urine pH 9.0 H Urine WBC (Auto) Vancomycin Trough Salicylates Acetaminophen % CD3 Cells % CD19 Cells Absolute CD19 Count Miscellaneous Test Crossmatch 09/21/18 09/21/18 09/21/18 04:35 04:35 11:30 WBC RBC 2.67 L Hgb 8.3 L Hct 25.1 L RDW 17.4 H Plt Count Lymph % (Auto) [place] % (Auto) 10.0 H Lymph # [place] # Seg Neutrophils % Seg Neuts % (Manual) Lymphocytes % (Manual) Nucleated RBC % Seg Neutrophils # Seg Neutrophils # Man Lymphocytes # (Manual) D-Dimer POC ABG pH POC ABG pCO2 POC ABG pO2 VBG pH Sodium Potassium Chloride Carbon Dioxide 21 L BUN 18 H Creatinine Glucose 106 H POC Glucose 110 H Hemoglobin A1c Lactic Acid Calcium Phosphorus Magnesium Iron TIBC AST ALT Troponin T C-Reactive Protein Total Protein Albumin Triglycerides LDL Cholesterol Direct HDL Cholesterol Urine pH Urine WBC (Auto) Vancomycin Trough Salicylates Acetaminophen % CD3 Cells % CD19 Cells Absolute CD19 Count Miscellaneous Test Crossmatch 09/22/18 09/22/18 09/22/18 04:11 12:30 17:54 WBC RBC Hgb Hct RDW Plt Count Lymph % (Auto) [place] % (Auto) Lymph # [place] # Seg Neutrophils % Seg Neuts % (Manual) Lymphocytes % (Manual) Nucleated RBC % Seg Neutrophils # Seg Neutrophils # Man Lymphocytes # (Manual) D-Dimer POC ABG pH POC ABG pCO2 POC ABG pO2 VBG pH Sodium Potassium Chloride Carbon Dioxide BUN 21 H Creatinine 0.6 L Glucose POC Glucose 120 H 122 H Hemoglobin A1c Lactic Acid Calcium Phosphorus Magnesium Iron TIBC AST ALT Troponin T C-Reactive Protein Total Protein Albumin Triglycerides LDL Cholesterol Direct HDL Cholesterol Urine pH Urine WBC (Auto) Vancomycin Trough Salicylates Acetaminophen % CD3 Cells % CD19 Cells Absolute CD19 Count Miscellaneous Test Crossmatch 09/23/18 05:29 WBC RBC Hgb Hct RDW Plt Count Lymph % (Auto) [place] % (Auto) Lymph # [place] # Seg Neutrophils % Seg Neuts % (Manual) Lymphocytes % (Manual) Nucleated RBC % Seg Neutrophils # Seg Neutrophils # Man Lymphocytes # (Manual) D-Dimer POC ABG pH POC ABG pCO2 POC ABG pO2 VBG pH Sodium Potassium Chloride Carbon Dioxide BUN Creatinine Glucose POC Glucose 163 H Hemoglobin A1c Lactic Acid Calcium Phosphorus Magnesium Iron TIBC AST ALT Troponin T C-Reactive Protein Total Protein Albumin Triglycerides LDL Cholesterol Direct HDL Cholesterol Urine pH Urine WBC (Auto) Vancomycin Trough Salicylates Acetaminophen % CD3 Cells % CD19 Cells Absolute CD19 Count Miscellaneous Test Crossmatch Allied health notes reviewed: RT
[2018-09-23] MEDS: DILAUDID PO SCH ×2 (11:01→17:44)
--- NOTE | 2018-09-23 11:16 | Progress Note ---
Assessment and Plan /Acute hypoxic hypercapnic respiratory failure; extubated 08/29/18 Re Intubated 09/02/18, vent dependent s/p trach on 09/14/18 Status post bronchoscopy, BAL negative cont nebulizers, pulmonary following /Dysphagia - could not placed PEG as could not be transilluminated stomach on EGD - s/p PEG done by IR 09/21/18, cont TF /Hypokalemia, cont to replete, normal Mg level, likely from diarrhea /Sepsis; new fever 102.6 on 09/18. Initially treated for aspiration pneumonia and Camryn glabrata fungemia; s/p micafungin, meropenem and Vanco per ID. treated for possible C.def with vancomycin po, C.def negative. monitor off abx now / Recent Camryn glabrata fungemia: treated /Thrombocytopenia: Platelet count is Stable Lovenox changed to Arixtra /Anemia: s/p transfusion[4 PRBC] Stool for occult blood x 2 negative, hematology following -Recent EGD at [facility] 08/08/2018 revealing irregular Z line, gastritis and small hiatal hernia - Recent colonoscopy at [facility] 08/08/2018 revealing sigmoid polyp, transverse colon polyps, inflamed hemorrhoids and diverticulosis /Hypomagnesemia; Hypernatremia; resolved, /Bileral lower extremity DVT; anticoagulation with arixtra CTA chest negative for PE /Hypertension; continue current antihypertensives /Severe malnutrition/hypoalbuminemia; Dietitian following, On TF /Acute kidney injury; probably secondary to ATN, Resolved, /Acute systolic congestive heart failure; EF 25-30%, Cardio following, monitor ins/os Previous echo 03/30/2016 at [facility] revealed normal LVEF Previous stress MPI 03/29/2016 at [facility] revealed no ischemia /Elevated Transaminases; resolved /-DVT prophylaxis; on full dose arixtra, Consults and recommendations noted and appreciated Plan of care reviewed with the patient's nurse and family The high probability of a clinically significant, sudden or life threatening deterioration of the [respiratory, cardiology, ID, renal and metabolic] system(s) required my full and direct attention, intervention and personal management. The aggregate critical care time was [32] minutes. This time is in addition to time spent performing reported procedures but includes the following: [x] Data Review and interpretation [x] Patient assessment and monitoring of vital signs [x] Documentation [x] Medication orders and management Disposition: Plan to d/c to LTAC pending. Brief History: 68-year-old female patient with history of COPD, arthritis s/p C-spine and lumbar spine surgery, Chronic pain syndrome who was found unconscious in her feces and vomitus, patients family was in [place] for a golf tournament. Patient was brought to the emergency room noted to be severely hypoxic and tachypneic, promptly intubated placed on ventilatory support and admitted to ICU patient was also noted to have possible aspiration pneumonia, completed treatment recommended by ID .currently monitoring of antibiotics . patient also had acute gastroenteritis acute kidney injury nonspecific elevation of troponins as well as septic shock evaluated by multiple specialties successfully weaned and extubated on 08/29/2018 however patient again went into acute respiratory failure requiring reintubation on 09/02/2018, Since then patient is vent dependent, planned for trach and PEG and placement. She is also being treated for acute b/l DVT diagnosed following admission while she was on DVT Px. s/p 4units of PRBC transfusion for anemia, no acute source of active bleeding so far. planned to d/c to LTAC Work up so far: CT abdomen/pelvis CTA chest Head CT 2d echo Renal US CXRs abdominal xrys Hospitalist Physical General appearance: Present: no acute distress, well-nourished, obese, other (on vent with trach) - EENT Eyes: Present: PERRL, EOM intact - Neck Neck: Present: supple, trach on place - Respiratory Respiratory effort: normal Respiratory: bilateral: diminished, rhonchi, negative: rales, wheezing - Cardiovascular Rhythm: regular Heart Sounds: Present: S1 & S2 - Extremities Extremities: no ischemia, No edema - Abdominal General gastrointestinal: soft, non-tender, non-distended, normal bowel sounds, PEG on place - Integumentary Integumentary: Present: clear, warm - Psychiatric Psychiatric: cooperative, other (on vent) - Neurologic Neurologic: move extremities Subjective Date of service: 09/23/18 Principal diagnosis: anemia - dvt Interval history: Patient seen and examined medical records reviewed Patient on ventilator support with trach Alert and awake not in acute distress Vital signs noted, tolerating TF with PEG Objective - Constitutional Vitals: Vital Signs - 12hr 09/22/18 09/22/18 09/22/18 23:23 23:24 23:31 Temperature Pulse Rate 86 76 89 Pulse Rate [ Anterior Bilateral] Pulse Rate [ 71 From Monitor] Respiratory 20 21 19 Rate Respiratory Rate [Anterior Bilateral] Respiratory 20 Rate [ Generalized] Blood Pressure 162/84 161/68 O2 Sat by Pulse 98 96 97 Oximetry O2 Sat by Pulse Oximetry [ Assessment] 09/23/18 09/23/18 09/23/18 00:01 00:30 01:01 Temperature Pulse Rate 86 83 91 H Pulse Rate [ Anterior Bilateral] Pulse Rate [ From Monitor] Respiratory 15 20 21 Rate Respiratory Rate [Anterior Bilateral] Respiratory Rate [ Generalized] Blood Pressure 158/69 159/76 159/74 O2 Sat by Pulse 96 97 98 Oximetry O2 Sat by Pulse Oximetry [ Assessment] 09/23/18 09/23/18 09/23/18 01:12 01:21 01:31 Temperature Pulse Rate 89 Pulse Rate [ 86 90 Anterior Bilateral] Pulse Rate [ From Monitor] Respiratory 17 Rate Respiratory 25 H 20 Rate [Anterior Bilateral] Respiratory Rate [ Generalized] Blood Pressure 146/81 O2 Sat by Pulse 96 Oximetry O2 Sat by Pulse Oximetry [ Assessment] 09/23/18 09/23/18 09/23/18 02:00 02:31 03:01 Temperature Pulse Rate 91 H 93 H 86 Pulse Rate [ Anterior Bilateral] Pulse Rate [ From Monitor] Respiratory 19 21 18 Rate Respiratory Rate [Anterior Bilateral] Respiratory Rate [ Generalized] Blood Pressure 142/82 165/97 150/78 O2 Sat by Pulse 97 96 94 Oximetry O2 Sat by Pulse Oximetry [ Assessment] 09/23/18 09/23/18 09/23/18 03:11 03:25 03:30 Temperature 99.7 F H Pulse Rate 86 86 Pulse Rate [ Anterior Bilateral] Pulse Rate [ From Monitor] Respiratory 22 Rate Respiratory Rate [Anterior Bilateral] Respiratory Rate [ Generalized] Blood Pressure 150/78 134/77 O2 Sat by Pulse 96 97 Oximetry O2 Sat by Pulse Oximetry [ Assessment] 09/23/18 09/23/18 09/23/18 04:00 04:31 05:01 Temperature Pulse Rate 87 85 83 Pulse Rate [ Anterior Bilateral] Pulse Rate [ 71 From Monitor] Respiratory 21 19 22 Rate Respiratory Rate [Anterior Bilateral] Respiratory 21 Rate [ Generalized] Blood Pressure 133/76 125/83 153/81 O2 Sat by Pulse 97 97 98 Oximetry O2 Sat by Pulse Oximetry [ Assessment] 09/23/18 09/23/18 09/23/18 05:30 06:01 06:14 Temperature Pulse Rate 87 87 74 Pulse Rate [ Anterior Bilateral] Pulse Rate [ From Monitor] Respiratory 21 18 Rate Respiratory Rate [Anterior Bilateral] Respiratory Rate [ Generalized] Blood Pressure 159/74 158/86 123/75 O2 Sat by Pulse 97 96 Oximetry O2 Sat by Pulse Oximetry [ Assessment] 09/23/18 09/23/18 09/23/18 06:31 07:00 07:30 Temperature Pulse Rate 89 84 86 Pulse Rate [ Anterior Bilateral] Pulse Rate [ From Monitor] Respiratory 18 22 26 H Rate Respiratory Rate [Anterior Bilateral] Respiratory Rate [ Generalized] Blood Pressure 158/86 164/78 165/84 O2 Sat by Pulse 95 98 100 Oximetry O2 Sat by Pulse Oximetry [ Assessment] 09/23/18 09/23/18 09/23/18 07:45 07:54 07:58 Temperature Pulse Rate 94 H Pulse Rate [ 91 H Anterior Bilateral] Pulse Rate [ From Monitor] Respiratory Rate Respiratory 25 H Rate [Anterior Bilateral] Respiratory Rate [ Generalized] Blood Pressure 165/84 O2 Sat by Pulse 98 Oximetry O2 Sat by Pulse 97 Oximetry [ Assessment] 09/23/18 09/23/18 09/23/18 07:59 08:00 08:31 Temperature 98.0 F Pulse Rate 95 H 91 H Pulse Rate [ 92 H Anterior Bilateral] Pulse Rate [ 95 H From Monitor] Respiratory 24 22 Rate Respiratory 16 Rate [Anterior Bilateral] Respiratory Rate [ Generalized] Blood Pressure 160/94 155/71 O2 Sat by Pulse 94 96 Oximetry O2 Sat by Pulse Oximetry [ Assessment] 09/23/18 09/23/18 09/23/18 09:01 09:30 09:42 Temperature Pulse Rate 92 H 97 H 102 H Pulse Rate [ Anterior Bilateral] Pulse Rate [ From Monitor] Respiratory 24 21 Rate Respiratory Rate [Anterior Bilateral] Respiratory Rate [ Generalized] Blood Pressure 125/89 170/89 170/89 O2 Sat by Pulse 96 94 Oximetry O2 Sat by Pulse Oximetry [ Assessment] 09/23/18 09/23/18 10:01 10:31 Temperature Pulse Rate 97 H 82 Pulse Rate [ Anterior Bilateral] Pulse Rate [ From Monitor] Respiratory 20 23 Rate Respiratory Rate [Anterior Bilateral] Respiratory Rate [ Generalized] Blood Pressure 148/59 150/67 O2 Sat by Pulse 97 99 Oximetry O2 Sat by Pulse Oximetry [ Assessment] - Labs CBC & Chem 7: 09/21/18 04:35 09/22/18 04:11 Labs: Abnormal lab results 09/22/18 09/22/18 09/23/18 Range/Units 12:30 17:54 05:29 POC Glucose 120 H 122 H 163 H (70-105)
--- NOTE | 2018-09-23 14:12 | Progress Note ---
Assessment and Plan Cultures: 08/15/2018 blood culture: Camryn glabrata 1 of 4 08/15/2018 sputum culture: MSSA and Escherichia coli, wade susceptible 08/18/2018 blood culture: no growth 08/18/2018 urine culture: neg 08/22/2018 blood culture: no growth 08/25/2018 blood culture: no growth 09/02/2018 BAL cultures: resp almaz. Fungal and AFB pending: No growth thus far. 09/04/2018 blood culture: no growth thus far 09/04/2018 trach aspirate: no growth Fungitell was high (consistent with Candidemia), Aspergillus galactomannan negative. 09/13/2018 blood culture: no growth A/P: 68-year-old female with COPD, arthritis, history of multiple spinal surgeries was brought to the emergency room on 08/15/2018 with altered mental status: 1) Sepsis with septic shock: new fever 102.6 on 09/18 resolved. Etiology unclear. Blood cultures 09/13/2018 negative. Has indwelling PICC and Manrique. Now with persistent diarrhea. ? ?sinusitis. Recent CT abd showed new bilateral effusions, anasarca, and decreased bilateral consolidation. repeat UA neg. Repeat blood culture neg. C diff neg. 2) Recent Camryn glabrata fungemia: resolved. Etiology remains unclear. Patient without any history of indwelling PICC line, TPN or immunocompromised status. reported severe explosive diarrhea, N/V before admission after taken 4 days of amoxicillin for dental implant on 07/29/2018 and had a EGD / colonoscopy on 08/08/2018 at [place] by Dr Alcantara. I reviewed report - mild chronic gastritis, focal intestinal metaplasia, squamocolumnar mucosa with mild reflux-type changes, and tubular adenoma. -s/p fluconazole 800 mg loading dose then micafungin, s/p amphotericin D6 on 08/26 -serum Crypto negative. -08/15/2018 blood culture: Camryn glabrata -08/18/2018 blood culture: no growth -CTA chest showed limited study due to respiratory motion artifact. No evidence of pulmonary embolism. Abnormal bilateral lung consolidation which may represent pulmonary edema or pneumonia. Mild cardiomegaly. Indeterminant mediastinal lymph nodes. -CT abdomen showed extensive bilateral lower lobe pulmonary infiltrates, rectal tube and Manrique catheter noted. NG tube at gastric antrum. Left hip prosthesis Extensive degenerative changes noted lumbar spine -TTE EF 25-30% no vegetations -HIV neg/ CD4 1004 -reviewed CT chest abd done 01/05/2019 showed cholecystectomy, mild fatty liver, postoperative changes of lumbar laminectomy with non specific fluid, 9 mm LLL pulmonary nodule which was compared to previous CT and was stable. -CRP 10-->5 3) Acute renal failure: On admission: improved. 4) Acute respiratory failure: Back on the vent. Recently completed pneumonia treatment. Underwent bronch + BAL on 09/02/2018. Cultures with no growth thus far. On abx. CTA chest 09/06/2018 negative for PE, bilateral air space disease, no air bronchograms as such. 5) Right maxillary sinusitis: received empiric abx. 6) Acute encephalopathy: Likely multifactorial. CT head unremarkable for acute intracranial process. 7) Cardiomyopathy, LVEF 25-30% this admission. 8) H/O left hip prosthesis ? XR no effusion. CT with no enhancement 9) Left leg DVT: on anticoagulation. Hematology following. 10) Mild transaminitis: monitor for now. RUQ US unremarkable. 11) Diahrrea: C diff negative 12) Urinary retention: manrique was exchanged 09/17, patient had retention again so it could not be removed. Recs: monitor fever off antibiotics Will follow on Wednesday Yasmin Alvarez MD Infectious Diseases [employer] [facility] M [phone] O [phone] Subjective Date of service: 09/23/18 Principal diagnosis: anemia - dvt Interval history: Remains on the vent on SBT via trach, asleep, feels, no fever, noted diarrhea on rectal tube ROS: unable to obtain Objective - Exam Narrative Exam: Constitutional: asleep Head, Ears, Nose: Normocephalic, atraumatic. External ears, nose normal Eyes: Conjunctivae/corneas clear. No icterus. No ptosis. Neck:+trach no secretion Oral: clear OP Cardiovascular: RRR Respiratory: CTA gonzalez GI: Soft, non-tender;+PEG Musculoskeletal: gonzalez arm edema Skin: No rash or abscess Hem/Lymphatic: No palpable cervical or supraclavicular nodes. No lymphangitis Psych: no agitation Neurological: asleep Rectal tube with diarrhea/ manrique - Constitutional Vitals: Vital Signs Temp Pulse Resp BP Pulse Ox 97.4 F L 87 20 143/79 100 04/26/19 12:00 09/23/18 13:30 09/23/18 13:30 09/23/18 13:30 09/23/18 13:30 Temperature -Last 24 Hours Temperature 97.4 F Temperature 98.0 F Temperature 99.7 F Temperature 98.6 F Temperature 98.4 F Temperature 98.2 F - Labs CBC & Chem 7: 09/21/18 04:35 09/22/18 04:11 Labs: Abnormal lab results 09/22/18 09/23/18 09/23/18 Range/Units 17:54 05:29 12:01 POC Glucose 122 H 163 H 144 H (70-105)
[2018-09-23] MEDS: TYLENOL PO PRN (19:46)
[2018-09-24] MEDS: APRESOLINE PO SCH ×3 (00:13→15:12)
[2018-09-24] MEDS: DILAUDID PO SCH ×6 (00:15→22:45)
[2018-09-24] MEDS: ELIQUIS PO SCH ×3 (00:16→21:49)
[2018-09-24] MEDS: PEPCID PO SCH ×3 (00:16→21:48)
[2018-09-24] MEDS: COREG PO SCH ×3 (00:16→21:49)
[2018-09-24] MEDS: TYLENOL PO PRN (00:17)
[2018-09-24] MEDS: POTASSIUM CHLORIDE PO SCH ×2 (00:19→21:51)
[2018-09-24] MEDS: VERSED IV PRN ×2 (00:20→21:03)
[2018-09-24] MEDS: HumaLOG SUB-Q SCH ×4 (03:10→17:53)
[2018-09-24 04:39] LABS: Basophils % (Auto) 0.5 % (0.0-1.8); Hematocrit 28.1 % (30.3-42.9); Hemoglobin 9.2 gm/dl (10.1-14.3); Lymphocytes # (Auto) 1.4 K/mm3 (1.2-5.4); Lymphocytes % (Auto) 30.8 % (13.4-35.0); Mean Corpuscular HGB Conc 33 % (30-34); Mean Corpuscular Volume 94 fl (79-97); Monocytes # (Auto) 0.6 K/mm3 (0.0-0.8); Monocytes % (Auto) 12.3 % (0.0-7.3); Platelet Count 105 K/mm3 (140-440); Red Cell Distribution Width 16.7 % (13.2-15.2)
[2018-09-24 05:04] LABS: BUN/Creatinine Ratio 42; Blood Urea Nitrogen 21 mg/dL (7-17); Calcium 9.3 mg/dL (8.4-10.2); Hemolysis Index 25
--- NOTE | 2018-09-24 08:13 | Hem/Onc Progress Note ---
Assessment and Plan #. Bilateral posterior tibial and peroneal vein deep venous thrombosis, left leg edema. Arixtra was being used. - back on same #. h/o Thrombocytopenia. The patient was on heparin-based treatment. Later fondaparinux. HIT negative, plt now better #. Anemia. At admission, hemoglobin was normal. The patient received blood transfusion. deficiency workup low iron - Ferritin - b12 - folate normal . There may be a bleeding component. s/p Iv iron trial #. Pulmonary embolism study is negative. #. h/o Camryn infection. #. Chronic obstructive pulmonary disease. #. History of renal failure. Nephrology following. #. Respiratory failure, on ventilator. History of cardiomyopathy. - s/p trach 09/24 - leg dvt. candidate for IVC filter eval as pt has been anemic needing transfusion peg tube done trach+ pt on eliquis h/o low plt - will follow - Patient Problems (1) Thrombocytopenia Current Visit: Yes Status: Acute (2) DVT (deep venous thrombosis) Current Visit: Yes Status: Acute (3) Anemia Current Visit: Yes Status: Acute Subjective Date of service: 09/24/18 Principal diagnosis: anemia - dvt Interval history: no bleeding Objective - Constitutional Vitals: Last Vital Signs Temp 99.9 F H 09/24/18 02:27 Pulse 73 09/24/18 06:29 Resp 22 09/24/18 03:00 BP 92/49 09/24/18 06:29 Pulse Ox 100 09/24/18 04:26 Pain Intensity (0-10): 1/10 (abdo) General appearance: no acute distress Performance status: 4-completely disabled - EENT Eyes: EOM intact ENT: other (trach) - Neck Neck: supple - Respiratory Respiratory effort: Positive: normal Respiratory: bilateral: diminished - Cardiovascular Heart Sounds: Present: S1 & S2 Extremities: No edema - Gastrointestinal General gastrointestinal: Present: soft, other (PEG) Rectal Exam: deferred - Genitourinary Female genitourinary: Present: deferred - Integumentary Integumentary: warm - Musculoskeletal Musculoskeletal: generalized weakness - Neurologic Neurologic: moves all extremities - Labs Lab Results: Laboratory Results - last 24 hr 09/23/18 09/23/18 09/23/18 12:01 18:23 23:53 WBC RBC Hgb Hct MCV MCH MCHC RDW Plt Count Lymph % (Auto) [place] % (Auto) Eos % (Auto) Baso % (Auto) Lymph # [place] # Eos # Baso # Seg Neutrophils % Seg Neutrophils # Sodium Potassium Chloride Carbon Dioxide Anion Gap BUN Creatinine Estimated GFR BUN/Creatinine Ratio Glucose POC Glucose 144 H 138 H 122 H Calcium 09/24/18 09/24/18 09/24/18 03:41 03:41 05:43 WBC 4.7 RBC 3.00 L Hgb 9.2 L Hct 28.1 L MCV 94 MCH 31 MCHC 33 RDW 16.7 H Plt Count 105 L Lymph % (Auto) 30.8 [place] % (Auto) 12.3 H Eos % (Auto) 0.0 Baso % (Auto) 0.5 Lymph # 1.4 [place] # 0.6 Eos # 0.0 Baso # 0.0 Seg Neutrophils % 56.4 Seg Neutrophils # 2.6 Sodium 139 Potassium 4.3 Chloride 102.7 Carbon Dioxide 24 Anion Gap 17 BUN 21 H Creatinine 0.5 L Estimated GFR > 60 BUN/Creatinine Ratio 42 Glucose 109 H POC Glucose 110 H Calcium 9.3 Medications & Allergies - Medications Allergies/Adverse Reactions: Allergies No Known Allergies Allergy (Unverified 08/15/18 16:49) Home Medications: Home Medications Medication Instructions Recorded Confirmed Last Taken Type Carvedilol 6.25 mg PO BID 08/15/18 08/15/18 Unknown History DULoxetine 60 mg PO QDAY 08/15/18 08/15/18 Unknown History Gabapentin 600 mg PO Q6HR PRN 08/15/18 08/15/18 Unknown History Methylphenidate 5 mg PO TID 08/15/18 08/15/18 Unknown History Morphabond ER 60 mg PO Q12HR 08/15/18 08/15/18 Unknown History Pravastatin Sodium 10 mg PO QDAY 08/15/18 08/15/18 Unknown History Tizanidine HCl 4 mg PO Q12HR 08/15/18 08/15/18 Unknown History oxyCODONE /ACETAMINOPHEN 7.5 - 325 mg PO Q8HR 08/15/18 08/15/18 Unknown History ALBUTEROL Inhaler(NF) 90 mcg IH TID 08/29/18 08/29/18 Unknown History Omeprazole-Bicarb 40-1,100 Cap 40 mg PO DAILY 08/29/18 08/29/18 Unknown History Active Medications: Generic Name Dose Route Start Last Admin Trade Name Freq PRN Reason Stop Dose Admin Acetaminophen 650 mg 08/15/18 22:12 09/24/18 00:17 Tylenol PO 650 mg Q4H PRN Administration Pain MILD(1-3)/Fever >100.5/MONDRAGON Albuterol 2.5 mg 08/17/18 17:00 Proventil IH Q3HRT PRN Shortness Of Breath Lipase/Protease/Amylase 1 each 09/17/18 09:06 Alis Elizabeth 10,500 Unit FEEDTUBE PRN PRN For Clogged Feeding Tube Apixaban 10 mg 09/22/18 10:00 09/24/18 00:16 Eliquis PO 09/28/18 22:01 10 mg Q12HR LAMAR Administration Apixaban 5 mg 09/29/18 10:00 Eliquis PO Q12HR LAMAR Arformoterol Tartrate 15 mcg 08/18/18 20:00 09/23/18 19:25 Brovana Nebu IH 15 mcg Q12HRT LAMAR Administration Budesonide 0.5 mg 08/18/18 20:00 09/23/18 19:25 Pulmicort IH 0.5 mg Q12HRT LAMAR Administration Carvedilol 3.125 mg 09/20/18 10:00 09/24/18 00:16 Coreg PO 3.125 mg BID LAMAR Administration Clonidine HCl 0.2 mg 09/25/18 10:00 Catapres-Tts Patch TD Pearson LAMAR Famotidine 20 mg 09/05/18 10:00 09/24/18 00:16 Pepcid PO 20 mg BID LAMAR Administration Furosemide 20 mg 09/18/18 12:00 09/23/18 09:42 Lasix IV 20 mg QDAY LAMAR Administration Hydralazine HCl 10 mg 08/19/18 13:59 09/19/18 02:27 Apresoline IV 10 mg Q3H PRN Administration Hydralazine HCl 25 mg 09/01/18 14:00 09/24/18 06:29 Apresoline PO Not Given Q8HR LAMAR Hydromorphone HCl 2 mg 09/06/18 12:00 09/24/18 06:32 Dilaudid PO 2 mg Q6HR LAMAR Administration Hydrophilic Ointment 1 applic 08/15/18 21:55 09/01/18 09:07 Vaseline Lip Therapy TP 1 applic Q2HR PRN Administration Dry Lips Insulin Human Lispro 0 unit 09/04/18 18:00 09/24/18 06:26 Humalog SUB-Q Not Given Q6HR [facility] Protocol Metoclopramide HCl 5 mg 08/15/18 22:50 09/17/18 10:48 Reglan IV 5 mg Q6H PRN Administration Nausea And Vomiting Midazolam HCl 1 mg 09/07/18 09:23 09/24/18 00:20 Versed IV 1 mg Q4H PRN Administration AGITATION Ondansetron HCl 4 mg 08/15/18 22:12 08/31/18 17:52 Zofran IV 4 mg Q8H PRN Administration Nausea And Vomiting Potassium Chloride 40 meq 09/20/18 22:00 09/24/18 00:19 Potassium Chloride PO 40 meq QDAY@2200 LAMAR Administration Quetiapine Fumarate 100 mg 09/19/18 22:00 09/24/18 00:13 Seroquel PO 100 mg BID LAMAR Administration Quetiapine Fumarate 100 mg 09/19/18 22:00 09/24/18 00:14 Seroquel PO 100 mg QHS LAMAR Administration Simple Syrup 15 ml 09/17/18 09:06 Simple Syrup FEEDTUBE PRN PRN Hypoglycemia Simple Syrup 30 ml 09/17/18 09:06 Simple Syrup FEEDTUBE PRN PRN Hypoglycemia Sodium Bicarbonate 325 mg 09/17/18 09:06 Sodium Bicarbonate FEEDTUBE PRN PRN For Clogged Feeding Tube Sodium Chloride 10 ml 08/15/18 22:12 09/17/18 21:51 Sodium Chloride Flush Syringe 10 Ml IV 10 ml PRN PRN Administration LINE FLUSH
[2018-09-24] MEDS: PULMICORT IH SCH ×2 (08:30→19:28)
[2018-09-24] MEDS: BROVANA NEBU IH SCH ×2 (08:30→19:28)
--- NOTE | 2018-09-24 09:18 | Progress Note ---
Assessment and Plan Assessment and plan: Acute hypoxic hypercapnic respiratory failure; extubated 08/29/18 Re Intubated 09/02/18, vent dependent s/p trach on 09/14/18 Status post bronchoscopy, BAL negative cont nebulizers, pulmonary following Dysphagia - could not placed PEG as could not be transilluminated stomach on EGD - s/p PEG done by IR 09/21/18, cont TF Hypokalemia, cont to replete, normal Mg level, likely from diarrhea Sepsis; new fever 102.6 on 09/18. Initially treated for aspiration pneumonia and Camryn glabrata fungemia; s/p micafungin, meropenem and Vanco per ID. treated for possible C.def with vancomycin po, C.def negative. monitor off abx now Recent Camryn glabrata fungemia: treated Thrombocytopenia: Platelet count is Stable Lovenox changed to Arixtra /Anemia: s/p transfusion[4 PRBC] Stool for occult blood x 2 negative, hematology following -Recent EGD at [facility] 08/08/2018 revealing irregular Z line, gastritis and small hiatal hernia - Recent colonoscopy at [facility] 08/08/2018 revealing sigmoid polyp, transverse colon polyps, inflamed hemorrhoids and diverticulosis Hypomagnesemia; Hypernatremia; resolved, Bileral lower extremity DVT; anticoagulation with arixtra CTA chest negative for PE Hypertension; continue current antihypertensives Severe malnutrition/hypoalbuminemia; Dietitian following, On TF Acute kidney injury; probably secondary to ATN, Resolved, Acute systolic congestive heart failure; EF 25-30%, Cardio following, monitor ins/os Previous echo 03/30/2016 at [facility] revealed normal LVEF Previous stress MPI 03/29/2016 at [facility] revealed no ischemia Elevated Transaminases; resolved DVT prophylaxis; on full dose arixtra, Consults and recommendations noted and appreciated Plan of care reviewed with the patient's nurse and family The high probability of a clinically significant, sudden or life threatening deterioration of the [respiratory, cardiology, ID, renal and metabolic] system(s) required my full and direct attention, intervention and personal management. The aggregate critical care time was [35] minutes. This time is in addition to time spent performing reported procedures but includes the following: [x] Data Review and interpretation [x] Patient assessment and monitoring of vital signs [x] Documentation [x] Medication orders and management Disposition: Plan to d/c to LTAC pending. History Interval history: Still on ventilator shortness of breath Hospitalist Physical - Physical exam Narrative exam: Gen: Not in acute distress, lying in bed HEENT: Normocephalic, atraumatic Neck: supple, no JVD, tracheostomy to ventilator Heart: S1 and S2 reg, no murmurs, rubs or gallop Lungs: Clear, no crackles Abd: soft, non tender, non distended, normal BS Ext: No edema, no clubbing, no cyanosis, left arm av fistula Neuro: AAO x 3, no focal signs, moves all ext - Constitutional Vitals: Temp Pulse Resp BP Pulse Ox 99.9 F H 73 20 92/49 100 09/24/18 02:27 09/24/18 08:20 09/24/18 08:20 09/24/18 08:20 09/24/18 08:20 General appearance: Present: no acute distress Results - Labs CBC & Chem 7: 09/25/18 04:17 09/25/18 04:17 Labs: Laboratory Last Values WBC 4.7 K/mm3 (4.5-11.0) 09/24/18 03:41 RBC 3.00 M/mm3 (3.65-5.03) L 09/24/18 03:41 Hgb 9.2 gm/dl (10.1-14.3) L 09/24/18 03:41 Hct 28.1 % (30.3-42.9) L 09/24/18 03:41 MCV 94 fl (79-97) 09/24/18 03:41 MCH 31 pg (28-32) 09/24/18 03:41 MCHC 33 % (30-34) 09/24/18 03:41 RDW 16.7 % (13.2-15.2) H 09/24/18 03:41 Plt Count 105 K/mm3 (140-440) L 09/24/18 03:41 Lymph % (Auto) 30.8 % (13.4-35.0) 09/24/18 03:41 [place] % (Auto) 12.3 % (0.0-7.3) H 09/24/18 03:41 Eos % (Auto) 0.0 % (0.0-4.3) 09/24/18 03:41 Baso % (Auto) 0.5 % (0.0-1.8) 09/24/18 03:41 Lymph # 1.4 K/mm3 (1.2-5.4) 09/24/18 03:41 [place] # 0.6 K/mm3 (0.0-0.8) 09/24/18 03:41 Eos # 0.0 K/mm3 (0.0-0.4) 09/24/18 03:41 Baso # 0.0 K/mm3 (0.0-0.1) 09/24/18 03:41 Add Manual Diff Complete 09/07/18 05:40 Total Counted 100 09/07/18 05:40 Seg Neutrophils % 56.4 % (40.0-70.0) 09/24/18 03:41 Seg Neuts % (Manual) 80.0 % (40.0-70.0) H 09/07/18 05:40 Band Neutrophils % 0 % 09/07/18 05:40 Lymphocytes % (Manual) 15.0 % (13.4-35.0) 09/07/18 05:40 Reactive Lymphs % (Man) 0 % 09/07/18 05:40 Monocytes % (Manual) 2.0 % (0.0-7.3) 09/07/18 05:40 Eosinophils % (Manual) 0 % (0.0-4.3) 09/07/18 05:40 Basophils % (Manual) 0 % (0.0-1.8) 09/07/18 05:40 Metamyelocytes % 2.0 % 09/07/18 05:40 Myelocytes % 1.0 % 09/07/18 05:40 Promyelocytes % 0 % 09/07/18 05:40 Blast Cells % 0 % 09/07/18 05:40 Nucleated RBC % 1.0 % (0.0-0.9) H 09/07/18 05:40 Seg Neutrophils # 2.6 K/mm3 (1.8-7.7) 09/24/18 03:41 Seg Neutrophils # Man 4.3 K/mm3 (1.8-7.7) 09/07/18 05:40 Band Neutrophils # 0.0 K/mm3 09/07/18 05:40 Abs Lymphs (Manual) 3262 cells/uL (850-3900) 08/19/18 14:32 Lymphocytes # (Manual) 0.8 K/mm3 (1.2-5.4) L 09/07/18 05:40 Abs React Lymphs (Man) 0.0 K/mm3 09/07/18 05:40 Monocytes # (Manual) 0.1 K/mm3 (0.0-0.8) 09/07/18 05:40 Eosinophils # (Manual) 0.0 K/mm3 (0.0-0.4) 09/07/18 05:40 Basophils # (Manual) 0.0 K/mm3 (0.0-0.1) 09/07/18 05:40 Metamyelocytes # 0.1 K/mm3 09/07/18 05:40 Myelocytes # 0.1 K/mm3 09/07/18 05:40 Promyelocytes # 0.0 K/mm3 09/07/18 05:40 Blast Cells # 0.0 K/mm3 09/07/18 05:40 WBC Morphology Not Reportable 09/07/18 05:40 Hypersegmented Neuts Not Reportable 09/07/18 05:40 Hyposegmented Neuts Not Reportable 09/07/18 05:40 Hypogranular Neuts Not Reportable 09/07/18 05:40 Smudge Cells Not Reportable 09/07/18 05:40 Toxic Granulation Not Reportable 09/07/18 05:40 Toxic Vacuolation Not Reportable 09/07/18 05:40 Dohle Bodies Not Reportable 09/07/18 05:40 Pelger-Huet Anomaly Not Reportable 09/07/18 05:40 Rosy Rods Not Reportable 09/07/18 05:40 Platelet Estimate Consistent w auto 09/07/18 05:40 Clumped Platelets Not Reportable 09/07/18 05:40 Plt Clumps, EDTA Not Reportable 09/07/18 05:40 Large Platelets Rare 09/07/18 05:40 Giant Platelets Not Reportable 09/07/18 05:40 Platelet Satelliting Not Reportable 09/07/18 05:40 Plt Morphology Comment Not Reportable 09/07/18 05:40 RBC Morphology Not Reportable 09/07/18 05:40 Dimorphic RBCs Not Reportable 09/07/18 05:40 Polychromasia Not Reportable 09/07/18 05:40 Hypochromasia Rare 09/07/18 05:40 Poikilocytosis Not Reportable 09/07/18 05:40 Anisocytosis Few 09/07/18 05:40 Microcytosis Not Reportable 09/07/18 05:40 Macrocytosis Not Reportable 09/07/18 05:40 Spherocytes Not Reportable 09/07/18 05:40 Pappenheimer Bodies Not Reportable 09/07/18 05:40 Sickle Cells Not Reportable 09/07/18 05:40 Target Cells Not Reportable 09/07/18 05:40 Tear Drop Cells Not Reportable 09/07/18 05:40 Ovalocytes Not Reportable 09/07/18 05:40 Helmet Cells Not Reportable 09/07/18 05:40 [place] Bodies Not Reportable 09/07/18 05:40 [place] Rings Not Reportable 09/07/18 05:40 [place] Cells Not Reportable 09/07/18 05:40 Bite Cells Not Reportable 09/07/18 05:40 Crenated Cell Not Reportable 09/07/18 05:40 Elliptocytes Not Reportable 09/07/18 05:40 Acanthocytes (Spur) Not Reportable 09/07/18 05:40 Rouleaux Not Reportable 09/07/18 05:40 Hemoglobin C Crystals Not Reportable 09/07/18 05:40 Schistocytes Not Reportable 09/07/18 05:40 Malaria parasites Not Reportable 09/07/18 05:40 Ceasar Bodies Not Reportable 09/07/18 05:40 Hem Pathologist Commnt No 09/07/18 05:40 PT 14.2 Sec. (12.2-14.9) 09/14/18 04:55 INR 1.04 (0.87-1.13) 09/14/18 04:55 D-Dimer 2768.33 ng/mlDDU (0-234) H 08/15/18 18:31 Heparin Anti-Xa, Unfract Negative (Negative) 08/22/18 15:29 POC ABG pH 7.391 (7.35-7.45) 09/22/18 05:50 POC ABG pCO2 36.3 (35-45) 09/22/18 05:50 POC ABG pO2 95 (80-105) 09/22/18 05:50 POC ABG HCO3 22.0 (22-26 mml/L) 09/22/18 05:50 POC ABG Total CO2 23 (23-27mmol/L) 09/22/18 05:50 POC ABG O2 Sat 97 09/22/18 05:50 POC ABG Base Excess -3 ((-2) - (+3)mmol/L) 09/22/18 05:50 VBG pH 7.187 (7.320-7.420) L* 08/15/18 18:19 FiO2 40 % 09/22/18 05:50 Sodium 139 mmol/L (137-145) 09/24/18 03:41 Potassium 4.3 mmol/L (3.6-5.0) 09/24/18 03:41 Chloride 102.7 mmol/L (98-107) 09/24/18 03:41 Carbon Dioxide 24 mmol/L (22-30) 09/24/18 03:41 Anion Gap 17 mmol/L 09/24/18 03:41 BUN 21 mg/dL (7-17) H 09/24/18 03:41 Creatinine 0.5 mg/dL (0.7-1.2) L 09/24/18 03:41 Estimated GFR > 60 ml/min 09/24/18 03:41 BUN/Creatinine Ratio 42 % 09/24/18 03:41 Glucose 109 mg/dL (65-100) H 09/24/18 03:41 POC Glucose 110 (70-105) H 09/24/18 05:43 Hemoglobin A1c 6.4 % (4-6) H 08/15/18 23:09 Lactic Acid 1.20 mmol/L (0.7-2.0) 08/22/18 15:29 Calcium 9.3 mg/dL (8.4-10.2) 09/24/18 03:41 Phosphorus 3.60 mg/dL (2.5-4.5) 09/11/18 01:10 Magnesium 1.70 mg/dL (1.7-2.3) 09/18/18 04:20 Iron 26 ug/dL (37-170) L 09/07/18 05:40 TIBC 150 mcg/dL (250-450) L 09/07/18 05:40 Ferritin 375.0 ng/mL (13.0-400.0) 09/07/18 05:40 Total Bilirubin 0.50 mg/dL (0.1-1.2) 09/14/18 04:55 Direct Bilirubin < 0.2 mg/dL (0-0.2) 09/14/18 04:55 Indirect Bilirubin 0.3 mg/dL 09/14/18 04:55 AST 60 units/L (5-40) H 09/14/18 04:55 ALT 88 units/L (7-56) H 09/14/18 04:55 Alkaline Phosphatase 66 units/L (35-129) 09/14/18 04:55 Troponin T 0.317 ng/mL (0.00-0.029) H* D 08/18/18 13:39 C-Reactive Protein 5.00 mg/dL (0.00-1.30) H 08/25/18 05:20 Total Protein 5.6 g/dL (6.3-8.2) L 09/14/18 04:55 Albumin 2.2 g/dL (3.9-5) L 09/14/18 04:55 Albumin/Globulin Ratio 0.6 % 09/14/18 04:55 Triglycerides 197 mg/dL (2-149) H 08/22/18 06:45 Cholesterol 87 mg/dL (50-199) 08/15/18 18:31 LDL Cholesterol Direct 4 mg/dL (50-130) L 08/15/18 18:31 HDL Cholesterol 10 mg/dL (40-59) L 08/15/18 18:31 Cholesterol/HDL Ratio 8.70 % 08/15/18 18:31 Serotonin Release Assay See scanned results 08/22/18 15:29 Vitamin B12 388.4 pg/mL (211-911) 09/07/18 05:40 Folate 19.01 ng/mL (7.3-26.0) 09/07/18 05:40 Total Cortisol 21.4 mcg/dL () 08/25/18 08:52 Urine Color Straw (Yellow) 09/20/18 16:10 Urine Turbidity Clear (Clear) 09/20/18 16:10 Urine pH 9.0 (5.0-7.0) H 09/20/18 16:10 Ur Specific [place] 1.006 (1.003-1.030) 09/20/18 16:10 Urine Protein <15 mg/dl mg/dL (Negative) 09/20/18 16:10 Urine Glucose (UA) Neg mg/dL (Negative) 09/20/18 16:10 Urine Ketones Neg mg/dL (Negative) 09/20/18 16:10 Urine Blood Lg (Negative) 09/20/18 16:10 Urine Nitrite Neg (Negative) 09/20/18 16:10 Urine Bilirubin Neg (Negative) 09/20/18 16:10 Urine Urobilinogen < 2.0 mg/dL (<2.0) 09/20/18 16:10 Ur Leukocyte Esterase Neg (Negative) 09/20/18 16:10 Urine WBC (Auto) 4.0 /HPF (0.0-6.0) 09/20/18 16:10 Urine RBC (Auto) > 182.0 /HPF (0.0-6.0) 09/20/18 16:10 Urine Bacteria (Auto) 1+ /HPF (Negative) 09/20/18 16:10 Urine WBC Clumps 2+ /HPF 08/15/18 19:15 Amorphous Crystals 1+ 08/15/18 19:15 Hyaline Casts 54 /LPF 08/15/18 19:15 Granular Casts 14 /LPF 08/15/18 19:15 Urine Mucus Few /HPF 09/20/18 16:10 Vancomycin Trough 28.6 ug/mL (5.0-20.0) H 09/06/18 14:40 Salicylates < 0.3 mg/dL (2.8-20.0) L 08/15/18 19:14 Urine Opiates Screen Presumptive positive 08/15/18 19:15 Urine Methadone Screen Presumptive negative 08/15/18 19:15 Acetaminophen < 5.0 ug/mL (10.0-30.0) L 08/15/18 19:14 Ur Barbiturates Screen Presumptive negative 08/15/18 19:15 Ur Phencyclidine Scrn Presumptive negative 08/15/18 19:15 Ur Amphetamines Screen Presumptive negative 08/15/18 19:15 U Benzodiazepines Scrn Presumptive negative 08/15/18 19:15 Urine Cocaine Screen Presumptive negative 08/15/18 19:15 U Marijuana (THC) Screen Presumptive negative 08/15/18 19:15 Drugs of Abuse Note Disclamer 08/15/18 19:15 Heparin-induced Plt Ab Negative (Negative) 08/22/18 15:29 UF Heparin High Dose 0 % Release 08/22/18 15:29 NAZIA UFH Low Dose 0.1 0 % Release 08/22/18 15:29 NAZIA UFH Low Dose 0.5 0 % Release 08/22/18 15:29 Lymph Enumerat CD4/CD8 1.98 (0.86-5.00) 08/19/18 14:32 % CD3 Cells 44 % (57-85) L 08/19/18 14:32 Absolute CD3 Count 1451 cells/uL (840-3060) 08/19/18 14:32 % CD4 Cells 30 % (30-61) 08/19/18 14:32 Absolute CD4 Count 1004 cells/uL (490-1740) 08/19/18 14:32 % CD8 Cells 15 % (12-42) 08/19/18 14:32 Absolute CD8 Count 508 cells/uL (180-1170) 08/19/18 14:32 % CD19 Cells 41 % (6-29) H 08/19/18 14:32 Absolute CD19 Count 1290 cells/uL (110-660) H 08/19/18 14:32 C. difficile Tox (PCR) Negative (Negative) 09/20/18 13:51 C. difficile Toxin A&B Negative (Negative) 08/19/18 14:00 HIV 1&2 Antibody Rapid Non react (Non React) 08/18/18 13:39 HIV P24 Antigen Non react (Non React) 08/18/18 13:39 Miscellaneous Test Flexitest 1 09/15/18 11:35 Blood Type O POSITIVE 09/14/18 12:00 Antibody Screen Negative 09/14/18 12:00 Crossmatch See Detail 09/14/18 12:00 Active Medications - Current Medications Current Medications: Generic Name Dose Route Start Last Admin Trade Name Freq PRN Reason Stop Dose Admin Acetaminophen 650 mg 08/15/18 22:12 09/24/18 00:17 Tylenol PO 650 mg Q4H PRN Administration Pain MILD(1-3)/Fever >100.5/MONDRAGON Albuterol 2.5 mg 08/17/18 17:00 Proventil IH Q3HRT PRN Shortness Of Breath Lipase/Protease/Amylase 1 each 09/17/18 09:06 Alis Elizabeth 10,500 Unit FEEDTUBE PRN PRN For Clogged Feeding Tube Apixaban 10 mg 09/22/18 10:00 09/24/18 00:16 Eliquis PO 09/28/18 22:01 10 mg Q12HR LAMAR Administration Apixaban 5 mg 09/29/18 10:00 Eliquis PO Q12HR LAMAR Arformoterol Tartrate 15 mcg 08/18/18 20:00 09/24/18 08:30 Brovana Nebu IH 15 mcg Q12HRT LAMAR Administration Budesonide 0.5 mg 08/18/18 20:00 09/24/18 08:30 Pulmicort IH 0.5 mg Q12HRT LAMAR Administration Carvedilol 3.125 mg 09/20/18 10:00 09/24/18 00:16 Coreg PO 3.125 mg BID LAMAR Administration Clonidine HCl 0.2 mg 09/25/18 10:00 Catapres-Tts Patch TD Pearson LAMAR Famotidine 20 mg 09/05/18 10:00 09/24/18 00:16 Pepcid PO 20 mg BID LAMAR Administration Furosemide 20 mg 09/18/18 12:00 09/23/18 09:42 Lasix IV 20 mg QDAY LAMAR Administration Hydralazine HCl 10 mg 08/19/18 13:59 09/19/18 02:27 Apresoline IV 10 mg Q3H PRN Administration Hydralazine HCl 25 mg 09/01/18 14:00 09/24/18 06:29 Apresoline PO Not Given Q8HR [facility] Hydromorphone HCl 2 mg 09/06/18 12:00 09/24/18 06:32 Dilaudid PO 2 mg Q6HR LAMAR Administration Hydrophilic Ointment 1 applic 08/15/18 21:55 09/01/18 09:07 Vaseline Lip Therapy TP 1 applic Q2HR PRN Administration Dry Lips Insulin Human Lispro 0 unit 09/04/18 18:00 09/24/18 06:26 Humalog SUB-Q Not Given Q6HR [facility] Protocol Metoclopramide HCl 5 mg 08/15/18 22:50 09/17/18 10:48 Reglan IV 5 mg Q6H PRN Administration Nausea And Vomiting Midazolam HCl 1 mg 09/07/18 09:23 09/24/18 00:20 Versed IV 1 mg Q4H PRN Administration AGITATION Ondansetron HCl 4 mg 08/15/18 22:12 08/31/18 17:52 Zofran IV 4 mg Q8H PRN Administration Nausea And Vomiting Potassium Chloride 40 meq 09/20/18 22:00 09/24/18 00:19 Potassium Chloride PO 40 meq QDAY@2200 LAMAR Administration Quetiapine Fumarate 100 mg 09/19/18 22:00 09/24/18 00:13 Seroquel PO 100 mg BID LAMAR Administration Quetiapine Fumarate 100 mg 09/19/18 22:00 09/24/18 00:14 Seroquel PO 100 mg QHS LAMAR Administration Simple Syrup 15 ml 09/17/18 09:06 Simple Syrup FEEDTUBE PRN PRN Hypoglycemia Simple Syrup 30 ml 09/17/18 09:06 Simple Syrup FEEDTUBE PRN PRN Hypoglycemia Sodium Bicarbonate 325 mg 09/17/18 09:06 Sodium Bicarbonate FEEDTUBE PRN PRN For Clogged Feeding Tube Sodium Chloride 10 ml 08/15/18 22:12 09/17/18 21:51 Sodium Chloride Flush Syringe 10 Ml IV 10 ml PRN PRN Administration LINE FLUSH Nutrition/Malnutrition Assess - Dietary Evaluation Nutrition/Malnutrition Findings: Nutrition Notes Start: 08/17/18 13:57 Freq: Status: Active Protocol: Document 09/22/18 11:43 SA (Rec: 09/22/18 11:47 [facility]-[id number]) Co-Sign 09/22/18 11:43 LP Nutrition Notes Initial or Follow up Reassessment Current Diagnosis Sepsis,Hypertension,Heart Failure,Respiratory Failure Other Pertinent Diagnosis Dysphagia, bilat LE DVT Current Diet TF - Vital High Protein @ 55 ml/hr Labs/Tests BUN: 21 Cr: 0.6 Pertinent Medications Lasix Humalog Height 5 ft 7 in Weight 93.4 kg [place] Body Weight (kg) 61.36 BMI 32.2 Subjective/Other Information PEG placed yesterday. TF running at goal rate and pt tolerating TF. Percent of energy/protein needs met: 100%/94% Burn Absent Trauma Absent #1 Nutrition Diagnosis Inadequate oral intake Diagnosis Progress(for reassessment Continues documentation) Is patient on ventilator? Yes Is Patient Ambulatory and/or Out of Bed No [facility] 1801.356 Kcal/Kg value to use for calculation 14 Approximate Energy Requirements Using 1308 kcal/Kg Calculation Used for Recommendations Kcal/kg Additional Notes Pro needs 2g/kg IBW: 123g/day Fluid needs 1ml/kcal Nutrition Intervention Nutrition Support: Vital High Protein at 55ml/hr. Provide 50ml water flush q4h. Kcal 1,320 Protein (gm) 116 Fluid (mL) 1,103 Goal #1 TF tolerance Goal #2 TF to meet at least 75% of kcal and pro needs via TF. Anticipated Discharge Needs: unable to determine at this time Follow-Up By: 09/29/18 Additional Comments F/U: TF tolerance
[2018-09-24] MEDS: LASIX IV SCH (11:07)
--- NOTE | 2018-09-24 13:10 | Progress Note ---
Assessment and Plan Acute hypoxic-hypercapnic respiratory failure on MVS Acute COPD exacerbation DVT NSTEMI Acute encephalopathy (toxic-metabolic) Thrombocytopenia Hypokalemia Acute kidney injury h/o Chronic Narcotic Dependence Aspiration pneumonia/CAP Hypokalemia GNR in tracheal aspirate Hypernatremia - place on T-piece as tolerated - ABG at 10 pm and continue RTC t-piece if tolerates - now s/p PEG; continue enteral nutrition - ST evaluation - s/p Midline placement - continue prn analgesia - Continue to Wean supplemental oxygen to keep O2 sats > 90% - follow clinically s/p AB's courses - continue accuchecks q6h and target glycemic control for BG 140 - 180 mg/dl acutely - continue seroquel slow taper while following clinically - continue lasix at 20 mg IV daily (diamox dosing completed) - continue daily SAT's & SBT's - VAP bundle addressed - CD4 count WNL - HIT assay negative but again developed thrombocytopenia with re-challenge so on Arixtra treatment dose for DVT - nephrology input appreciated - cardiology input appreciated - continue brovana & pulmicort re: COPD - continue to avoid benzodiazepines, use high dose fentanyl for agitation and analgesia - continue stress ulcer prophylaxis - continue VTE prophylaxis - continue enteral Nutrition as tolerated - Continue bronchodilators with pulmonary hygiene per RT - Maintenance of sleep -wake cycle - Mobility protocol for pressure ulcer prophylaxis as tolerated by hemodynamics - Influenza and pneumonia vaccination per protocol .... her not in room today at time of my examination ... re-evaluate in am & prn PROGNOSIS :FAIR CONDITION: CRITICAL CODE STATUS: FULL CODE The high probability of a clinically significant, sudden or life-threatening deterioration of the [respiratory, neurology, renal] system(s) required my full and direct attention, intervention and personal management. The aggregate critical care time was [34] minutes without overlap. Time includes spent on; [x] Data Review and interpretation [x] Patient assessment and monitoring of vital signs [x] Documentation [x] Medication orders and management Subjective Date of service: 09/24/18 Principal diagnosis: Acute hypoxemic hypercapnic Resp failure; AE-COPD; Acute kidney injury Interval history: Patient is seen today for: Acute hypoxemic - hypercapnic respiratory failure on MVS; Acute COPD exacerbation; Acute encephalopathy (toxic-metabolic); Hypokalemia; Acute kidney injury Seen and examined at bedside; 24hour events reviewed; nursing and respiratory care staff consulted; no adverse overnight events reported to me; remains on MVS; on PSV and tolerating well; alert and coherent; and son visiting; No N/V/F/C and no gross bleeding Objective Vital Signs - 12hr 09/24/18 09/24/18 09/24/18 01:31 02:00 02:27 Temperature 99.9 F H Pulse Rate 73 69 Pulse Rate [ From Monitor] Respiratory 19 18 Rate Respiratory Rate [ Generalized] Blood Pressure 103/54 104/50 O2 Sat by Pulse 99 99 Oximetry O2 Sat by Pulse Oximetry [ Assessment] 09/24/18 09/24/18 09/24/18 02:31 03:00 03:30 Temperature Pulse Rate 64 74 71 Pulse Rate [ From Monitor] Respiratory 19 22 20 Rate Respiratory Rate [ Generalized] Blood Pressure 112/46 105/48 114/51 O2 Sat by Pulse 99 98 100 Oximetry O2 Sat by Pulse Oximetry [ Assessment] 09/24/18 09/24/18 09/24/18 04:00 04:01 04:24 Temperature Pulse Rate 70 70 Pulse Rate [ 70 From Monitor] Respiratory 20 Rate Respiratory Rate [ Generalized] Blood Pressure 114/51 105/40 O2 Sat by Pulse 97 97 100 Oximetry O2 Sat by Pulse Oximetry [ Assessment] 09/24/18 09/24/18 09/24/18 04:26 04:30 05:01 Temperature Pulse Rate 69 70 Pulse Rate [ From Monitor] Respiratory 19 16 Rate Respiratory Rate [ Generalized] Blood Pressure 114/52 114/50 O2 Sat by Pulse 99 99 Oximetry O2 Sat by Pulse 100 Oximetry [ Assessment] 09/24/18 09/24/18 09/24/18 05:31 06:00 06:29 Temperature Pulse Rate 73 73 73 Pulse Rate [ From Monitor] Respiratory 14 18 Rate Respiratory Rate [ Generalized] Blood Pressure 109/57 109/57 92/49 O2 Sat by Pulse 100 99 Oximetry O2 Sat by Pulse Oximetry [ Assessment] 09/24/18 09/24/18 09/24/18 06:31 07:01 07:31 Temperature Pulse Rate 72 71 84 Pulse Rate [ From Monitor] Respiratory 20 21 22 Rate Respiratory Rate [ Generalized] Blood Pressure 108/52 126/48 126/48 O2 Sat by Pulse 99 99 99 Oximetry O2 Sat by Pulse Oximetry [ Assessment] 09/24/18 09/24/1819 08:01 08:20 08:31 Temperature Pulse Rate 76 73 73 Pulse Rate [ From Monitor] Respiratory 20 20 22 Rate Respiratory Rate [ Generalized] Blood Pressure 96/36 92/49 103/46 O2 Sat by Pulse 99 100 99 Oximetry O2 Sat by Pulse Oximetry [ Assessment] 09/24/18 09/24/18 09/24/18 09:01 09:31 10:00 Temperature Pulse Rate 68 75 Pulse Rate [ From Monitor] Respiratory 17 20 Rate Respiratory 22 Rate [ Generalized] Blood Pressure 110/52 110/52 O2 Sat by Pulse 99 100 Oximetry O2 Sat by Pulse Oximetry [ Assessment] 09/24/18 09/24/18 09/24/18 10:01 10:31 11:01 Temperature Pulse Rate 72 72 75 Pulse Rate [ From Monitor] Respiratory 22 22 21 Rate Respiratory Rate [ Generalized] Blood Pressure 110/52 187/159 187/159 O2 Sat by Pulse 98 99 99 Oximetry O2 Sat by Pulse Oximetry [ Assessment] 09/24/18 09/24/18 09/24/18 11:10 11:30 11:37 Temperature Pulse Rate 78 74 Pulse Rate [ From Monitor] Respiratory 20 22 Rate Respiratory Rate [ Generalized] Blood Pressure 116/59 116/59 O2 Sat by Pulse Oximetry O2 Sat by Pulse Oximetry [ Assessment] 09/24/18 09/24/18 12:01 12:31 Temperature Pulse Rate 70 76 Pulse Rate [ From Monitor] Respiratory 20 18 Rate Respiratory Rate [ Generalized] Blood Pressure 109/52 109/52 O2 Sat by Pulse 99 100 Oximetry O2 Sat by Pulse Oximetry [ Assessment] Constitutional: appears uncomfortable, other (elderly looking CF, normocephalic and atraumatic) Eyes: non-icteric ENT: oropharynx moist, other (s/p tracheostomy) Neck: supple, no lymphadenopathy, no JVD, other (no thyromegaly) Effort: mildly labored Ascultation: Bilateral: diminished breath sounds, rhonchi (improved) Percussion: Bilateral: not dull Cardiovascular: regular rate and rhythm Gastrointestinal: normoactive bowel sounds, soft, non-tender, non-distended Integumentary: normal Extremities: no cyanosis, no ischemia or petechiae, edema (Left lower extremity) Neurologic: normal mental status, non-focal exam (grossly), pupils equal and round, CN II-XII normal, motor strength normal and Psychiatric: mood appropriate, affect normal CBC and BMP: 09/25/18 04:17 09/25/18 04:17 ABG, PT/INR, D-dimer: ABG POC ABG pH 7.391 (7.35-7.45) 09/22/18 05:50 POC ABG pCO2 36.3 (35-45) 09/22/18 05:50 POC ABG pO2 95 (80-105) 09/22/18 05:50 POC ABG HCO3 22.0 (22-26 mml/L) 09/22/18 05:50 POC ABG Total CO2 23 (23-27mmol/L) 09/22/18 05:50 POC ABG O2 Sat 97 09/22/18 05:50 PT/INR, D-dimer PT 14.2 Sec. (12.2-14.9) 09/14/18 04:55 INR 1.04 (0.87-1.13) 09/14/18 04:55 D-Dimer 2768.33 ng/mlDDU (0-234) H 08/15/18 18:31 Abnormal lab findings: Abnormal Labs 08/15/18 08/15/18 08/15/18 17:52 17:52 17:52 WBC 12.7 H RBC 3.25 L Hgb Hct RDW Plt Count Lymph % (Auto) [place] % (Auto) Lymph # [place] # Seg Neutrophils % Seg Neuts % (Manual) Lymphocytes % (Manual) 6.0 L Nucleated RBC % Seg Neutrophils # Seg Neutrophils # Man Lymphocytes # (Manual) 0.8 L D-Dimer POC ABG pH POC ABG pCO2 POC ABG pO2 VBG pH Sodium Potassium 3.4 L Chloride 94.6 L Carbon Dioxide 17 L BUN 67 H Creatinine 3.5 H Glucose 131 H POC Glucose Hemoglobin A1c Lactic Acid 5.20 H* Calcium 7.6 L Phosphorus Magnesium Iron TIBC AST 887 H ALT 316 H Troponin T C-Reactive Protein Total Protein Albumin 3.1 L Triglycerides LDL Cholesterol Direct HDL Cholesterol Urine pH Urine WBC (Auto) Vancomycin Trough Salicylates Acetaminophen % CD3 Cells % CD19 Cells Absolute CD19 Count Miscellaneous Test Crossmatch 08/15/18 08/15/18 08/15/18 18:11 18:19 18:31 WBC RBC Hgb Hct RDW Plt Count Lymph % (Auto) [place] % (Auto) Lymph # [place] # Seg Neutrophils % Seg Neuts % (Manual) Lymphocytes % (Manual) Nucleated RBC % Seg Neutrophils # Seg Neutrophils # Man Lymphocytes # (Manual) D-Dimer 2768.33 H POC ABG pH 7.173 L POC ABG pCO2 47.8 H POC ABG pO2 177 H VBG pH 7.187 L* Sodium Potassium Chloride Carbon Dioxide BUN Creatinine Glucose POC Glucose Hemoglobin A1c Lactic Acid Calcium Phosphorus Magnesium Iron TIBC AST ALT Troponin T C-Reactive Protein Total Protein Albumin Triglycerides LDL Cholesterol Direct HDL Cholesterol Urine pH Urine WBC (Auto) Vancomycin Trough Salicylates Acetaminophen % CD3 Cells % CD19 Cells Absolute CD19 Count Miscellaneous Test Crossmatch 08/15/18 08/15/18 08/15/18 18:31 19:14 19:14 WBC RBC Hgb Hct RDW Plt Count Lymph % (Auto) [place] % (Auto) Lymph # [place] # Seg Neutrophils % Seg Neuts % (Manual) Lymphocytes % (Manual) Nucleated RBC % Seg Neutrophils # Seg Neutrophils # Man Lymphocytes # (Manual) D-Dimer POC ABG pH POC ABG pCO2 POC ABG pO2 VBG pH Sodium Potassium Chloride Carbon Dioxide BUN Creatinine Glucose POC Glucose Hemoglobin A1c Lactic Acid 2.70 H* Calcium Phosphorus Magnesium Iron TIBC AST ALT Troponin T 0.454 H* C-Reactive Protein Total Protein Albumin Triglycerides 356 H LDL Cholesterol Direct 4 L HDL Cholesterol 10 L Urine pH Urine WBC (Auto) Vancomycin Trough Salicylates < 0.3 L Acetaminophen % CD3 Cells % CD19 Cells Absolute CD19 Count Miscellaneous Test Crossmatch 08/15/18 08/15/18 08/15/18 19:14 19:15 23:09 WBC RBC Hgb Hct RDW Plt Count Lymph % (Auto) [place] % (Auto) Lymph # [place] # Seg Neutrophils % Seg Neuts % (Manual) Lymphocytes % (Manual) Nucleated RBC % Seg Neutrophils # Seg Neutrophils # Man Lymphocytes # (Manual) D-Dimer POC ABG pH POC ABG pCO2 POC ABG pO2 VBG pH Sodium Potassium Chloride Carbon Dioxide BUN Creatinine Glucose POC Glucose Hemoglobin A1c Lactic Acid 3.20 H* Calcium Phosphorus Magnesium Iron TIBC AST ALT Troponin T C-Reactive Protein Total Protein Albumin Triglycerides LDL Cholesterol Direct HDL Cholesterol Urine pH Urine WBC (Auto) 17.0 H Vancomycin Trough Salicylates Acetaminophen < 5.0 L % CD3 Cells % CD19 Cells Absolute CD19 Count Miscellaneous Test Crossmatch 08/15/18 08/16/18 08/16/18 23:09 01:41 05:38 WBC RBC 3.07 L Hgb 9.8 L Hct 28.7 L RDW Plt Count Lymph % (Auto) [place] % (Auto) Lymph # [place] # Seg Neutrophils % Seg Neuts % (Manual) 84.0 H Lymphocytes % (Manual) 6.0 L Nucleated RBC % 4.0 H Seg Neutrophils # Seg Neutrophils # Man Lymphocytes # (Manual) 0.5 L D-Dimer POC ABG pH 7.323 L POC ABG pCO2 34.7 L POC ABG pO2 78 L VBG pH Sodium Potassium Chloride Carbon Dioxide BUN Creatinine Glucose POC Glucose Hemoglobin A1c 6.4 H Lactic Acid Calcium Phosphorus Magnesium Iron TIBC AST ALT Troponin T C-Reactive Protein Total Protein Albumin Triglycerides LDL Cholesterol Direct HDL Cholesterol Urine pH Urine WBC (Auto) Vancomycin Trough Salicylates Acetaminophen % CD3 Cells % CD19 Cells Absolute CD19 Count Miscellaneous Test Crossmatch 08/16/18 08/16/18 08/17/18 05:38 22:43 03:42 WBC RBC Hgb Hct RDW Plt Count Lymph % (Auto) [place] % (Auto) Lymph # [place] # Seg Neutrophils % Seg Neuts % (Manual) Lymphocytes % (Manual) Nucleated RBC % Seg Neutrophils # Seg Neutrophils # Man Lymphocytes # (Manual) D-Dimer POC ABG pH POC ABG pCO2 POC ABG pO2 VBG pH Sodium Potassium 2.9 L* 3.1 L 2.9 L* Chloride 108.8 H 111.9 H Carbon Dioxide 17 L 19 L 21 L BUN 62 H 40 H 33 H Creatinine 2.0 H Glucose 139 H 145 H POC Glucose Hemoglobin A1c Lactic Acid Calcium 7.8 L 8.3 L Phosphorus 1.50 L Magnesium Iron TIBC AST 619 H ALT 353 H Troponin T C-Reactive Protein Total Protein 6.1 L Albumin 2.8 L Triglycerides LDL Cholesterol Direct HDL Cholesterol Urine pH Urine WBC (Auto) Vancomycin Trough Salicylates Acetaminophen % CD3 Cells % CD19 Cells Absolute CD19 Count Miscellaneous Test Crossmatch 08/17/18 08/17/18 08/18/18 11:02 16:42 03:28 WBC RBC Hgb Hct RDW Plt Count Lymph % (Auto) [place] % (Auto) Lymph # [place] # Seg Neutrophils % Seg Neuts % (Manual) Lymphocytes % (Manual) Nucleated RBC % Seg Neutrophils # Seg Neutrophils # Man Lymphocytes # (Manual) D-Dimer POC ABG pH 7.483 H 7.499 H POC ABG pCO2 POC ABG pO2 VBG pH Sodium 147 H Potassium 3.2 L Chloride 115.8 H Carbon Dioxide BUN 23 H Creatinine Glucose 121 H POC Glucose Hemoglobin A1c Lactic Acid Calcium 8.1 L Phosphorus 2.30 L D Magnesium Iron TIBC AST ALT Troponin T C-Reactive Protein Total Protein Albumin Triglycerides LDL Cholesterol Direct HDL Cholesterol Urine pH Urine WBC (Auto) Vancomycin Trough Salicylates Acetaminophen % CD3 Cells % CD19 Cells Absolute CD19 Count Miscellaneous Test Crossmatch 08/18/18 08/18/18 08/18/18 04:10 13:39 13:39 WBC RBC Hgb Hct RDW Plt Count Lymph % (Auto) [place] % (Auto) Lymph # [place] # Seg Neutrophils % Seg Neuts % (Manual) Lymphocytes % (Manual) Nucleated RBC % Seg Neutrophils # Seg Neutrophils # Man Lymphocytes # (Manual) D-Dimer POC ABG pH POC ABG pCO2 POC ABG pO2 VBG pH Sodium 147 H Potassium 3.3 L Chloride 111.9 H Carbon Dioxide BUN 21 H Creatinine Glucose 113 H POC Glucose Hemoglobin A1c Lactic Acid Calcium Phosphorus 1.50 L D Magnesium Iron TIBC AST ALT Troponin T 0.317 H* D C-Reactive Protein 10.70 H Total Protein Albumin Triglycerides LDL Cholesterol Direct HDL Cholesterol Urine pH Urine WBC (Auto) Vancomycin Trough Salicylates Acetaminophen % CD3 Cells % CD19 Cells Absolute CD19 Count Miscellaneous Test Crossmatch 08/18/18 08/19/18 08/19/18 16:51 03:47 04:15 WBC RBC Hgb Hct RDW Plt Count Lymph % (Auto) [place] % (Auto) Lymph # [place] # Seg Neutrophils % Seg Neuts % (Manual) Lymphocytes % (Manual) Nucleated RBC % Seg Neutrophils # Seg Neutrophils # Man Lymphocytes # (Manual) D-Dimer POC ABG pH 7.454 H 7.482 H POC ABG pCO2 POC ABG pO2 65 L VBG pH Sodium 154 H Potassium 3.3 L Chloride 115.1 H Carbon Dioxide BUN 19 H Creatinine Glucose 117 H POC Glucose Hemoglobin A1c Lactic Acid Calcium 7.8 L Phosphorus Magnesium Iron TIBC AST ALT Troponin T C-Reactive Protein Total Protein Albumin Triglycerides LDL Cholesterol Direct HDL Cholesterol Urine pH Urine WBC (Auto) Vancomycin Trough Salicylates Acetaminophen % CD3 Cells % CD19 Cells Absolute CD19 Count Miscellaneous Test Crossmatch 08/19/18 08/19/18 08/20/18 14:32 16:18 03:51 WBC RBC Hgb Hct RDW Plt Count Lymph % (Auto) [place] % (Auto) Lymph # [place] # Seg Neutrophils % Seg Neuts % (Manual) Lymphocytes % (Manual) Nucleated RBC % Seg Neutrophils # Seg Neutrophils # Man Lymphocytes # (Manual) D-Dimer POC ABG pH 7.483 H POC ABG pCO2 33.4 L POC ABG pO2 51 L 74 L VBG pH Sodium Potassium Chloride Carbon Dioxide BUN Creatinine Glucose POC Glucose Hemoglobin A1c Lactic Acid Calcium Phosphorus Magnesium Iron TIBC AST ALT Troponin T C-Reactive Protein Total Protein Albumin Triglycerides LDL Cholesterol Direct HDL Cholesterol Urine pH Urine WBC (Auto) Vancomycin Trough Salicylates Acetaminophen % CD3 Cells 44 L % CD19 Cells 41 H Absolute CD19 Count 1290 H Miscellaneous Test Crossmatch 08/20/18 08/21/18 08/21/18 05:25 03:54 05:45 WBC 24.1 H RBC 2.83 L Hgb 8.8 L Hct 26.7 L RDW 15.7 H Plt Count 127 L Lymph % (Auto) [place] % (Auto) Lymph # [place] # Seg Neutrophils % Seg Neuts % (Manual) 94.0 H Lymphocytes % (Manual) 4.0 L Nucleated RBC % 1.0 H Seg Neutrophils # Seg Neutrophils # Man 22.7 H Lymphocytes # (Manual) 1.0 L D-Dimer POC ABG pH POC ABG pCO2 31.9 L POC ABG pO2 66 L VBG pH Sodium 146 H D Potassium Chloride 111.2 H Carbon Dioxide BUN 24 H Creatinine Glucose 141 H POC Glucose Hemoglobin A1c Lactic Acid Calcium 8.1 L Phosphorus Magnesium Iron TIBC AST 65 H ALT 104 H Troponin T C-Reactive Protein Total Protein 6.2 L Albumin 2.6 L Triglycerides LDL Cholesterol Direct HDL Cholesterol Urine pH Urine WBC (Auto) Vancomycin Trough Salicylates Acetaminophen % CD3 Cells % CD19 Cells Absolute CD19 Count Miscellaneous Test Crossmatch 08/21/18 08/22/18 08/22/18 05:45 06:20 06:45 WBC RBC Hgb Hct RDW Plt Count Lymph % (Auto) [place] % (Auto) Lymph # [place] # Seg Neutrophils % Seg Neuts % (Manual) Lymphocytes % (Manual) Nucleated RBC % Seg Neutrophils # Seg Neutrophils # Man Lymphocytes # (Manual) D-Dimer POC ABG pH POC ABG pCO2 32.9 L POC ABG pO2 VBG pH Sodium Potassium 3.5 L Chloride 109.4 H 112.4 H Carbon Dioxide 21 L 20 L BUN 50 H 61 H Creatinine 2.0 H D 1.9 H Glucose 144 H 154 H POC Glucose Hemoglobin A1c Lactic Acid Calcium 7.6 L 7.8 L Phosphorus Magnesium Iron TIBC AST ALT Troponin T C-Reactive Protein Total Protein 5.3 L Albumin 2.1 L Triglycerides LDL Cholesterol Direct HDL Cholesterol Urine pH Urine WBC (Auto) Vancomycin Trough Salicylates Acetaminophen % CD3 Cells % CD19 Cells Absolute CD19 Count Miscellaneous Test Crossmatch 08/22/18 08/22/18 08/22/18 06:45 15:29 18:40 WBC RBC Hgb Hct RDW Plt Count Lymph % (Auto) [place] % (Auto) Lymph # [place] # Seg Neutrophils % Seg Neuts % (Manual) Lymphocytes % (Manual) Nucleated RBC % Seg Neutrophils # Seg Neutrophils # Man Lymphocytes # (Manual) D-Dimer POC ABG pH POC ABG pCO2 POC ABG pO2 VBG pH Sodium Potassium Chloride Carbon Dioxide BUN Creatinine Glucose POC Glucose 169 H Hemoglobin A1c Lactic Acid Calcium Phosphorus Magnesium Iron TIBC AST ALT Troponin T C-Reactive Protein 4.70 H Total Protein Albumin Triglycerides 197 H LDL Cholesterol Direct HDL Cholesterol Urine pH Urine WBC (Auto) Vancomycin Trough Salicylates Acetaminophen % CD3 Cells % CD19 Cells Absolute CD19 Count Miscellaneous Test Crossmatch 08/23/18 08/23/18 08/23/18 03:59 21:19 Unknown WBC 12.1 H RBC 2.29 L Hgb 7.1 L Hct 21.7 L RDW 15.7 H Plt Count 106 L Lymph % (Auto) [place] % (Auto) Lymph # [place] # Seg Neutrophils % Seg Neuts % (Manual) 92.0 H Lymphocytes % (Manual) 4.0 L Nucleated RBC % Seg Neutrophils # Seg Neutrophils # Man 11.1 H Lymphocytes # (Manual) 0.5 L D-Dimer POC ABG pH 7.306 L POC ABG pCO2 31.3 L POC ABG pO2 119 H 75 L VBG pH Sodium Potassium Chloride Carbon Dioxide BUN Creatinine Glucose POC Glucose Hemoglobin A1c Lactic Acid Calcium Phosphorus Magnesium Iron TIBC AST ALT Troponin T C-Reactive Protein Total Protein Albumin Triglycerides LDL Cholesterol Direct HDL Cholesterol Urine pH Urine WBC (Auto) Vancomycin Trough Salicylates Acetaminophen % CD3 Cells % CD19 Cells Absolute CD19 Count Miscellaneous Test Crossmatch 08/23/18 08/24/18 08/24/18 Unknown 04:18 08:30 WBC 12.8 H RBC 2.24 L Hgb 7.0 L Hct 21.1 L RDW Plt Count Lymph % (Auto) [place] % (Auto) Lymph # [place] # Seg Neutrophils % Seg Neuts % (Manual) 93.0 H Lymphocytes % (Manual) 6.0 L Nucleated RBC % Seg Neutrophils # Seg Neutrophils # Man 11.9 H Lymphocytes # (Manual) 0.8 L D-Dimer POC ABG pH POC ABG pCO2 POC ABG pO2 78 L VBG pH Sodium Potassium Chloride 115.7 H Carbon Dioxide 21 L BUN 64 H Creatinine 2.0 H Glucose 149 H POC Glucose Hemoglobin A1c Lactic Acid Calcium 7.5 L Phosphorus Magnesium Iron TIBC AST ALT Troponin T C-Reactive Protein Total Protein 4.8 L Albumin 2.0 L Triglycerides LDL Cholesterol Direct HDL Cholesterol Urine pH Urine WBC (Auto) Vancomycin Trough Salicylates Acetaminophen % CD3 Cells % CD19 Cells Absolute CD19 Count Miscellaneous Test Crossmatch 08/24/18 08/24/18 08/24/18 08:30 17:44 18:28 WBC RBC Hgb Hct RDW Plt Count Lymph % (Auto) [place] % (Auto) Lymph # [place] # Seg Neutrophils % Seg Neuts % (Manual) Lymphocytes % (Manual) Nucleated RBC % Seg Neutrophils # Seg Neutrophils # Man Lymphocytes # (Manual) D-Dimer POC ABG pH 7.474 H POC ABG pCO2 POC ABG pO2 61 L VBG pH Sodium Potassium Chloride 108.3 H Carbon Dioxide 20 L BUN 65 H Creatinine 2.0 H Glucose 167 H POC Glucose 164 H Hemoglobin A1c Lactic Acid Calcium 7.7 L Phosphorus Magnesium Iron TIBC AST ALT Troponin T C-Reactive Protein Total Protein 5.3 L Albumin 2.2 L Triglycerides LDL Cholesterol Direct HDL Cholesterol Urine pH Urine WBC (Auto) Vancomycin Trough Salicylates Acetaminophen % CD3 Cells % CD19 Cells Absolute CD19 Count Miscellaneous Test Crossmatch 08/25/18 08/25/18 08/25/18 03:35 05:20 05:20 WBC RBC Hgb 6.7 L Hct 21.0 L RDW Plt Count Lymph % (Auto) [place] % (Auto) Lymph # [place] # Seg Neutrophils % Seg Neuts % (Manual) Lymphocytes % (Manual) Nucleated RBC % Seg Neutrophils # Seg Neutrophils # Man Lymphocytes # (Manual) D-Dimer POC ABG pH POC ABG pCO2 POC ABG pO2 79 L VBG pH Sodium Potassium Chloride Carbon Dioxide 21 L BUN 71 H Creatinine 3.1 H D Glucose 171 H POC Glucose Hemoglobin A1c Lactic Acid Calcium 7.5 L Phosphorus Magnesium Iron TIBC AST ALT Troponin T C-Reactive Protein Total Protein Albumin Triglycerides LDL Cholesterol Direct HDL Cholesterol Urine pH Urine WBC (Auto) Vancomycin Trough Salicylates Acetaminophen % CD3 Cells % CD19 Cells Absolute CD19 Count Miscellaneous Test Crossmatch 08/25/18 08/25/18 08/25/18 05:20 08:52 12:42 WBC RBC Hgb Hct RDW Plt Count Lymph % (Auto) [place] % (Auto) Lymph # [place] # Seg Neutrophils % Seg Neuts % (Manual) Lymphocytes % (Manual) Nucleated RBC % Seg Neutrophils # Seg Neutrophils # Man Lymphocytes # (Manual) D-Dimer POC ABG pH POC ABG pCO2 POC ABG pO2 VBG pH Sodium Potassium Chloride Carbon Dioxide BUN Creatinine Glucose POC Glucose 166 H Hemoglobin A1c Lactic Acid Calcium Phosphorus Magnesium Iron TIBC AST ALT Troponin T C-Reactive Protein 5.00 H Total Protein Albumin Triglycerides LDL Cholesterol Direct HDL Cholesterol Urine pH Urine WBC (Auto) Vancomycin Trough Salicylates Acetaminophen % CD3 Cells % CD19 Cells Absolute CD19 Count Miscellaneous Test Crossmatch See Detail 08/25/18 08/26/18 08/26/18 18:05 00:13 04:53 WBC RBC Hgb Hct RDW Plt Count Lymph % (Auto) [place] % (Auto) Lymph # [place] # Seg Neutrophils % Seg Neuts % (Manual) Lymphocytes % (Manual) Nucleated RBC % Seg Neutrophils # Seg Neutrophils # Man Lymphocytes # (Manual) D-Dimer POC ABG pH POC ABG pCO2 30.9 L POC ABG pO2 70 L VBG pH Sodium Potassium Chloride Carbon Dioxide BUN Creatinine Glucose POC Glucose 121 H 164 H Hemoglobin A1c Lactic Acid Calcium Phosphorus Magnesium Iron TIBC AST ALT Troponin T C-Reactive Protein Total Protein Albumin Triglycerides LDL Cholesterol Direct HDL Cholesterol Urine pH Urine WBC (Auto) Vancomycin Trough Salicylates Acetaminophen % CD3 Cells % CD19 Cells Absolute CD19 Count Miscellaneous Test Crossmatch 08/26/18 08/26/18 08/26/18 05:42 06:00 06:00 WBC RBC 2.62 L Hgb 7.7 L Hct 23.0 L RDW 22.0 H Plt Count Lymph % (Auto) 6.3 L [place] % (Auto) Lymph # 0.7 L [place] # Seg Neutrophils % 88.1 H Seg Neuts % (Manual) Lymphocytes % (Manual) Nucleated RBC % Seg Neutrophils # 9.6 H Seg Neutrophils # Man Lymphocytes # (Manual) D-Dimer POC ABG pH POC ABG pCO2 POC ABG pO2 VBG pH Sodium Potassium Chloride Carbon Dioxide 21 L BUN 70 H Creatinine 3.3 H Glucose 146 H POC Glucose 149 H Hemoglobin A1c Lactic Acid Calcium 8.0 L Phosphorus Magnesium Iron TIBC AST ALT Troponin T C-Reactive Protein Total Protein Albumin Triglycerides LDL Cholesterol Direct HDL Cholesterol Urine pH Urine WBC (Auto) Vancomycin Trough Salicylates Acetaminophen % CD3 Cells % CD19 Cells Absolute CD19 Count Miscellaneous Test Crossmatch 08/26/18 08/26/18 08/27/18 11:37 23:54 04:35 WBC RBC 2.50 L Hgb 7.6 L Hct 22.3 L RDW 21.8 H Plt Count Lymph % (Auto) 7.3 L [place] % (Auto) Lymph # 0.7 L [place] # Seg Neutrophils % 85.6 H Seg Neuts % (Manual) Lymphocytes % (Manual) Nucleated RBC % Seg Neutrophils # 8.6 H Seg Neutrophils # Man Lymphocytes # (Manual) D-Dimer POC ABG pH POC ABG pCO2 POC ABG pO2 VBG pH Sodium Potassium Chloride Carbon Dioxide BUN Creatinine Glucose POC Glucose 183 H 150 H Hemoglobin A1c Lactic Acid Calcium Phosphorus Magnesium Iron TIBC AST ALT Troponin T C-Reactive Protein Total Protein Albumin Triglycerides LDL Cholesterol Direct HDL Cholesterol Urine pH Urine WBC (Auto) Vancomycin Trough Salicylates Acetaminophen % CD3 Cells % CD19 Cells Absolute CD19 Count Miscellaneous Test Crossmatch 08/27/18 08/27/18 08/28/18 04:35 12:17 04:43 WBC RBC Hgb Hct RDW Plt Count Lymph % (Auto) [place] % (Auto) Lymph # [place] # Seg Neutrophils % Seg Neuts % (Manual) Lymphocytes % (Manual) Nucleated RBC % Seg Neutrophils # Seg Neutrophils # Man Lymphocytes # (Manual) D-Dimer POC ABG pH POC ABG pCO2 32.1 L 33.8 L POC ABG pO2 68 L 78 L VBG pH Sodium Potassium Chloride Carbon Dioxide 19 L BUN 67 H Creatinine 2.9 H Glucose 155 H POC Glucose Hemoglobin A1c Lactic Acid Calcium Phosphorus 4.70 H Magnesium Iron TIBC AST ALT Troponin T C-Reactive Protein Total Protein Albumin Triglycerides LDL Cholesterol Direct HDL Cholesterol Urine pH Urine WBC (Auto) Vancomycin Trough Salicylates Acetaminophen % CD3 Cells % CD19 Cells Absolute CD19 Count Miscellaneous Test Crossmatch 08/28/18 08/28/18 08/28/18 05:03 05:20 05:20 WBC RBC 2.43 L Hgb 7.4 L Hct 21.8 L RDW 20.8 H Plt Count Lymph % (Auto) 7.6 L [place] % (Auto) 8.7 H Lymph # 0.7 L [place] # Seg Neutrophils % 82.9 H Seg Neuts % (Manual) Lymphocytes % (Manual) Nucleated RBC % Seg Neutrophils # Seg Neutrophils # Man Lymphocytes # (Manual) D-Dimer POC ABG pH POC ABG pCO2 POC ABG pO2 VBG pH Sodium Potassium Chloride 107.8 H Carbon Dioxide 21 L BUN 55 H Creatinine 2.0 H Glucose 177 H POC Glucose 160 H Hemoglobin A1c Lactic Acid Calcium Phosphorus Magnesium Iron TIBC AST ALT Troponin T C-Reactive Protein Total Protein Albumin Triglycerides LDL Cholesterol Direct HDL Cholesterol Urine pH Urine WBC (Auto) Vancomycin Trough Salicylates Acetaminophen % CD3 Cells % CD19 Cells Absolute CD19 Count Miscellaneous Test Crossmatch 08/28/18 08/28/18 08/28/18 12:18 18:58 22:31 WBC RBC Hgb Hct RDW Plt Count Lymph % (Auto) [place] % (Auto) Lymph # [place] # Seg Neutrophils % Seg Neuts % (Manual) Lymphocytes % (Manual) Nucleated RBC % Seg Neutrophils # Seg Neutrophils # Man Lymphocytes # (Manual) D-Dimer POC ABG pH POC ABG pCO2 34.4 L POC ABG pO2 67 L VBG pH Sodium Potassium Chloride Carbon Dioxide BUN Creatinine Glucose POC Glucose 164 H 149 H Hemoglobin A1c Lactic Acid Calcium Phosphorus Magnesium Iron TIBC AST ALT Troponin T C-Reactive Protein Total Protein Albumin Triglycerides LDL Cholesterol Direct HDL Cholesterol Urine pH Urine WBC (Auto) Vancomycin Trough Salicylates Acetaminophen % CD3 Cells % CD19 Cells Absolute CD19 Count Miscellaneous Test Crossmatch 08/28/18 08/29/18 08/29/18 23:33 05:25 05:25 WBC RBC 2.30 L Hgb 7.0 L Hct 20.9 L RDW 21.0 H Plt Count Lymph % (Auto) 11.5 L [place] % (Auto) 9.2 H Lymph # 0.8 L [place] # Seg Neutrophils % 78.8 H Seg Neuts % (Manual) Lymphocytes % (Manual) Nucleated RBC % Seg Neutrophils # Seg Neutrophils # Man Lymphocytes # (Manual) D-Dimer POC ABG pH POC ABG pCO2 POC ABG pO2 VBG pH Sodium Potassium Chloride 111.1 H Carbon Dioxide BUN 55 H Creatinine 1.8 H Glucose 162 H POC Glucose 143 H Hemoglobin A1c Lactic Acid Calcium Phosphorus Magnesium Iron TIBC AST 46 H ALT < 5 L Troponin T C-Reactive Protein Total Protein 5.7 L Albumin 2.1 L Triglycerides LDL Cholesterol Direct HDL Cholesterol Urine pH Urine WBC (Auto) Vancomycin Trough Salicylates Acetaminophen % CD3 Cells % CD19 Cells Absolute CD19 Count Miscellaneous Test Crossmatch 08/29/18 08/29/18 08/30/18 18:19 23:35 05:03 WBC RBC Hgb Hct RDW Plt Count Lymph % (Auto) [place] % (Auto) Lymph # [place] # Seg Neutrophils % Seg Neuts % (Manual) Lymphocytes % (Manual) Nucleated RBC % Seg Neutrophils # Seg Neutrophils # Man Lymphocytes # (Manual) D-Dimer POC ABG pH POC ABG pCO2 POC ABG pO2 VBG pH Sodium Potassium Chloride Carbon Dioxide BUN Creatinine Glucose POC Glucose 155 H 139 H 122 H Hemoglobin A1c Lactic Acid Calcium Phosphorus Magnesium Iron TIBC AST ALT Troponin T C-Reactive Protein Total Protein Albumin Triglycerides LDL Cholesterol Direct HDL Cholesterol Urine pH Urine WBC (Auto) Vancomycin Trough Salicylates Acetaminophen % CD3 Cells % CD19 Cells Absolute CD19 Count Miscellaneous Test Crossmatch 08/30/18 08/30/18 08/30/18 09:33 09:33 09:54 WBC RBC 2.58 L Hgb 7.9 L Hct 23.5 L RDW 20.9 H Plt Count Lymph % (Auto) 8.0 L [place] % (Auto) 9.7 H Lymph # 0.8 L [place] # 1.0 H Seg Neutrophils % 82.1 H Seg Neuts % (Manual) Lymphocytes % (Manual) Nucleated RBC % Seg Neutrophils # 8.2 H Seg Neutrophils # Man Lymphocytes # (Manual) D-Dimer POC ABG pH POC ABG pCO2 POC ABG pO2 VBG pH Sodium 146 H Potassium Chloride 110.7 H Carbon Dioxide BUN 56 H Creatinine 1.9 H Glucose 145 H POC Glucose Hemoglobin A1c Lactic Acid Calcium Phosphorus 4.60 H Magnesium Iron TIBC AST ALT < 5 L Troponin T C-Reactive Protein Total Protein Albumin 2.7 L Triglycerides LDL Cholesterol Direct HDL Cholesterol Urine pH Urine WBC (Auto) Vancomycin Trough Salicylates Acetaminophen % CD3 Cells % CD19 Cells Absolute CD19 Count Miscellaneous Test Flexitest 1 H Crossmatch 08/30/18 08/30/18 08/30/18 09:57 11:26 18:08 WBC RBC Hgb Hct RDW Plt Count Lymph % (Auto) [place] % (Auto) Lymph # [place] # Seg Neutrophils % Seg Neuts % (Manual) Lymphocytes % (Manual) Nucleated RBC % Seg Neutrophils # Seg Neutrophils # Man Lymphocytes # (Manual) D-Dimer POC ABG pH POC ABG pCO2 POC ABG pO2 VBG pH Sodium Potassium Chloride Carbon Dioxide BUN Creatinine Glucose POC Glucose 149 H 156 H Hemoglobin A1c Lactic Acid Calcium Phosphorus Magnesium Iron TIBC AST ALT Troponin T C-Reactive Protein Total Protein Albumin Triglycerides LDL Cholesterol Direct HDL Cholesterol Urine pH Urine WBC (Auto) Vancomycin Trough Salicylates Acetaminophen % CD3 Cells % CD19 Cells Absolute CD19 Count Miscellaneous Test Flexitest 1 H Crossmatch 08/30/18 08/31/18 08/31/18 23:14 05:16 08:40 WBC RBC Hgb Hct RDW Plt Count Lymph % (Auto) [place] % (Auto) Lymph # [place] # Seg Neutrophils % Seg Neuts % (Manual) Lymphocytes % (Manual) Nucleated RBC % Seg Neutrophils # Seg Neutrophils # Man Lymphocytes # (Manual) D-Dimer POC ABG pH POC ABG pCO2 POC ABG pO2 VBG pH Sodium 151 H Potassium Chloride 113.8 H Carbon Dioxide BUN 45 H Creatinine Glucose 144 H POC Glucose 117 H 133 H Hemoglobin A1c Lactic Acid Calcium Phosphorus Magnesium Iron TIBC AST ALT Troponin T C-Reactive Protein Total Protein Albumin Triglycerides LDL Cholesterol Direct HDL Cholesterol Urine pH Urine WBC (Auto) Vancomycin Trough Salicylates Acetaminophen % CD3 Cells % CD19 Cells Absolute CD19 Count Miscellaneous Test Crossmatch 08/31/18 09/01/18 09/01/18 23:46 04:45 04:45 WBC RBC 2.38 L Hgb 7.3 L Hct 22.1 L RDW 21.1 H Plt Count Lymph % (Auto) [place] % (Auto) Lymph # [place] # Seg Neutrophils % Seg Neuts % (Manual) 93.0 H Lymphocytes % (Manual) 4.0 L Nucleated RBC % Seg Neutrophils # Seg Neutrophils # Man 10.1 H Lymphocytes # (Manual) 0.4 L D-Dimer POC ABG pH POC ABG pCO2 POC ABG pO2 VBG pH Sodium 156 H Potassium 3.1 L Chloride 115.2 H Carbon Dioxide BUN 34 H Creatinine Glucose 125 H POC Glucose 124 H Hemoglobin A1c Lactic Acid Calcium Phosphorus Magnesium Iron TIBC AST ALT Troponin T C-Reactive Protein Total Protein Albumin Triglycerides LDL Cholesterol Direct HDL Cholesterol Urine pH Urine WBC (Auto) Vancomycin Trough Salicylates Acetaminophen % CD3 Cells % CD19 Cells Absolute CD19 Count Miscellaneous Test Crossmatch 09/01/18 09/01/18 09/01/18 05:34 11:20 17:52 WBC RBC Hgb Hct RDW Plt Count Lymph % (Auto) [place] % (Auto) Lymph # [place] # Seg Neutrophils % Seg Neuts % (Manual) Lymphocytes % (Manual) Nucleated RBC % Seg Neutrophils # Seg Neutrophils # Man Lymphocytes # (Manual) D-Dimer POC ABG pH 7.553 H POC ABG pCO2 POC ABG pO2 74 L VBG pH Sodium Potassium Chloride Carbon Dioxide BUN Creatinine Glucose POC Glucose 128 H 146 H Hemoglobin A1c Lactic Acid Calcium Phosphorus Magnesium Iron TIBC AST ALT Troponin T C-Reactive Protein Total Protein Albumin Triglycerides LDL Cholesterol Direct HDL Cholesterol Urine pH Urine WBC (Auto) Vancomycin Trough Salicylates Acetaminophen % CD3 Cells % CD19 Cells Absolute CD19 Count Miscellaneous Test Crossmatch 09/01/18 09/02/18 09/02/18 17:52 04:13 04:58 WBC 16.4 H RBC 2.64 L Hgb 7.9 L Hct 24.3 L RDW 20.8 H Plt Count Lymph % (Auto) [place] % (Auto) Lymph # [place] # Seg Neutrophils % Seg Neuts % (Manual) 96.0 H Lymphocytes % (Manual) 1.0 L Nucleated RBC % Seg Neutrophils # Seg Neutrophils # Man 15.7 H Lymphocytes # (Manual) 0.2 L D-Dimer POC ABG pH 7.488 H POC ABG pCO2 POC ABG pO2 63 L VBG pH Sodium Potassium Chloride Carbon Dioxide BUN Creatinine Glucose POC Glucose 143 H Hemoglobin A1c Lactic Acid Calcium Phosphorus Magnesium Iron TIBC AST ALT Troponin T C-Reactive Protein Total Protein Albumin Triglycerides LDL Cholesterol Direct HDL Cholesterol Urine pH Urine WBC (Auto) Vancomycin Trough Salicylates Acetaminophen % CD3 Cells % CD19 Cells Absolute CD19 Count Miscellaneous Test Crossmatch 04/05/19 04/05/19 04/05/19 04:58 11:03 18:18 WBC RBC Hgb Hct RDW Plt Count Lymph % (Auto) [place] % (Auto) Lymph # [place] # Seg Neutrophils % Seg Neuts % (Manual) Lymphocytes % (Manual) Nucleated RBC % Seg Neutrophils # Seg Neutrophils # Man Lymphocytes # (Manual) D-Dimer POC ABG pH 7.344 L POC ABG pCO2 52.8 H POC ABG pO2 VBG pH Sodium 158 H Potassium 2.9 L* Chloride 115.7 H Carbon Dioxide BUN 27 H Creatinine 0.6 L Glucose 128 H POC Glucose 121 H Hemoglobin A1c Lactic Acid Calcium Phosphorus Magnesium 1.60 L Iron TIBC AST 64 H ALT Troponin T C-Reactive Protein Total Protein Albumin 2.6 L Triglycerides LDL Cholesterol Direct HDL Cholesterol Urine pH Urine WBC (Auto) Vancomycin Trough Salicylates Acetaminophen % CD3 Cells % CD19 Cells Absolute CD19 Count Miscellaneous Test Crossmatch 09/02/18 09/03/18 09/03/18 23:06 03:36 04:25 WBC RBC 2.20 L Hgb 6.7 L Hct 20.9 L RDW 21.1 H Plt Count Lymph % (Auto) [place] % (Auto) Lymph # [place] # Seg Neutrophils % Seg Neuts % (Manual) 90.0 H Lymphocytes % (Manual) 5.0 L Nucleated RBC % Seg Neutrophils # Seg Neutrophils # Man 8.7 H Lymphocytes # (Manual) 0.5 L D-Dimer POC ABG pH POC ABG pCO2 POC ABG pO2 54 L VBG pH Sodium Potassium Chloride Carbon Dioxide BUN Creatinine Glucose POC Glucose 121 H Hemoglobin A1c Lactic Acid Calcium Phosphorus Magnesium Iron TIBC AST ALT Troponin T C-Reactive Protein Total Protein Albumin Triglycerides LDL Cholesterol Direct HDL Cholesterol Urine pH Urine WBC (Auto) Vancomycin Trough Salicylates Acetaminophen % CD3 Cells % CD19 Cells Absolute CD19 Count Miscellaneous Test Crossmatch 09/03/18 09/03/18 09/03/18 04:25 05:45 10:24 WBC RBC Hgb Hct RDW Plt Count Lymph % (Auto) [place] % (Auto) Lymph # [place] # Seg Neutrophils % Seg Neuts % (Manual) Lymphocytes % (Manual) Nucleated RBC % Seg Neutrophils # Seg Neutrophils # Man Lymphocytes # (Manual) D-Dimer POC ABG pH POC ABG pCO2 POC ABG pO2 VBG pH Sodium 158 H Potassium 3.1 L Chloride 120.4 H Carbon Dioxide BUN 25 H Creatinine 0.6 L Glucose 127 H POC Glucose 178 H Hemoglobin A1c Lactic Acid Calcium 7.9 L Phosphorus Magnesium Iron TIBC AST ALT Troponin T C-Reactive Protein Total Protein 6.0 L Albumin 2.4 L Triglycerides LDL Cholesterol Direct HDL Cholesterol Urine pH Urine WBC (Auto) Vancomycin Trough Salicylates Acetaminophen % CD3 Cells % CD19 Cells Absolute CD19 Count Miscellaneous Test Crossmatch See Detail 09/03/18 09/03/18 09/04/18 11:27 23:09 04:42 WBC RBC Hgb Hct RDW Plt Count Lymph % (Auto) [place] % (Auto) Lymph # [place] # Seg Neutrophils % Seg Neuts % (Manual) Lymphocytes % (Manual) Nucleated RBC % Seg Neutrophils # Seg Neutrophils # Man Lymphocytes # (Manual) D-Dimer POC ABG pH 7.293 L POC ABG pCO2 50.2 H POC ABG pO2 VBG pH Sodium Potassium Chloride Carbon Dioxide BUN Creatinine Glucose POC Glucose 107 H 139 H Hemoglobin A1c Lactic Acid Calcium Phosphorus Magnesium Iron TIBC AST ALT Troponin T C-Reactive Protein Total Protein Albumin Triglycerides LDL Cholesterol Direct HDL Cholesterol Urine pH Urine WBC (Auto) Vancomycin Trough Salicylates Acetaminophen % CD3 Cells % CD19 Cells Absolute CD19 Count Miscellaneous Test Crossmatch 09/04/18 09/04/18 09/04/18 05:00 06:30 06:30 WBC RBC 2.32 L Hgb 7.0 L Hct 21.9 L RDW 20.2 H Plt Count Lymph % (Auto) [place] % (Auto) Lymph # [place] # Seg Neutrophils % 80.1 H Seg Neuts % (Manual) Lymphocytes % (Manual) Nucleated RBC % Seg Neutrophils # 8.2 H Seg Neutrophils # Man Lymphocytes # (Manual) D-Dimer POC ABG pH POC ABG pCO2 POC ABG pO2 VBG pH Sodium 150 H D Potassium Chloride 115.9 H Carbon Dioxide BUN 21 H Creatinine 0.6 L Glucose 125 H POC Glucose 154 H Hemoglobin A1c Lactic Acid Calcium 7.9 L Phosphorus Magnesium 1.50 L Iron TIBC AST ALT Troponin T C-Reactive Protein Total Protein Albumin Triglycerides LDL Cholesterol Direct HDL Cholesterol Urine pH Urine WBC (Auto) Vancomycin Trough Salicylates Acetaminophen % CD3 Cells % CD19 Cells Absolute CD19 Count Miscellaneous Test Crossmatch 09/04/18 09/04/18 09/04/18 11:20 11:51 18:27 WBC RBC Hgb Hct RDW Plt Count Lymph % (Auto) [place] % (Auto) Lymph # [place] # Seg Neutrophils % Seg Neuts % (Manual) Lymphocytes % (Manual) Nucleated RBC % Seg Neutrophils # Seg Neutrophils # Man Lymphocytes # (Manual) D-Dimer POC ABG pH 7.244 L POC ABG pCO2 54.2 H POC ABG pO2 62 L VBG pH Sodium Potassium Chloride Carbon Dioxide BUN Creatinine Glucose POC Glucose 156 H 129 H Hemoglobin A1c Lactic Acid Calcium Phosphorus Magnesium Iron TIBC AST ALT Troponin T C-Reactive Protein Total Protein Albumin Triglycerides LDL Cholesterol Direct HDL Cholesterol Urine pH Urine WBC (Auto) Vancomycin Trough Salicylates Acetaminophen % CD3 Cells % CD19 Cells Absolute CD19 Count Miscellaneous Test Crossmatch 09/05/18 09/05/18 09/05/18 03:46 04:00 04:00 WBC RBC 2.13 L Hgb 6.4 L Hct 20.1 L RDW 19.9 H Plt Count 117 L Lymph % (Auto) [place] % (Auto) Lymph # 0.9 L [place] # Seg Neutrophils % 81.7 H Seg Neuts % (Manual) Lymphocytes % (Manual) Nucleated RBC % Seg Neutrophils # Seg Neutrophils # Man Lymphocytes # (Manual) D-Dimer POC ABG pH 7.282 L POC ABG pCO2 57.3 H POC ABG pO2 124 H VBG pH Sodium Potassium Chloride 111.0 H Carbon Dioxide BUN 20 H Creatinine Glucose 130 H POC Glucose Hemoglobin A1c Lactic Acid Calcium 7.8 L Phosphorus Magnesium 1.60 L Iron TIBC AST ALT Troponin T C-Reactive Protein Total Protein Albumin Triglycerides LDL Cholesterol Direct HDL Cholesterol Urine pH Urine WBC (Auto) Vancomycin Trough Salicylates Acetaminophen % CD3 Cells % CD19 Cells Absolute CD19 Count Miscellaneous Test Crossmatch 09/05/18 09/05/18 09/05/18 12:15 17:24 23:24 WBC RBC Hgb Hct RDW Plt Count Lymph % (Auto) [place] % (Auto) Lymph # [place] # Seg Neutrophils % Seg Neuts % (Manual) Lymphocytes % (Manual) Nucleated RBC % Seg Neutrophils # Seg Neutrophils # Man Lymphocytes # (Manual) D-Dimer POC ABG pH POC ABG pCO2 POC ABG pO2 VBG pH Sodium Potassium Chloride Carbon Dioxide BUN Creatinine Glucose POC Glucose 143 H 116 H 116 H Hemoglobin A1c Lactic Acid Calcium Phosphorus Magnesium Iron TIBC AST ALT Troponin T C-Reactive Protein Total Protein Albumin Triglycerides LDL Cholesterol Direct HDL Cholesterol Urine pH Urine WBC (Auto) Vancomycin Trough Salicylates Acetaminophen % CD3 Cells % CD19 Cells Absolute CD19 Count Miscellaneous Test Crossmatch 09/06/18 09/06/18 09/06/18 03:33 04:20 04:20 WBC RBC 2.45 L Hgb 7.4 L Hct 23.0 L RDW 18.1 H Plt Count 99 L Lymph % (Auto) [place] % (Auto) Lymph # 1.0 L [place] # Seg Neutrophils % 78.0 H Seg Neuts % (Manual) Lymphocytes % (Manual) Nucleated RBC % Seg Neutrophils # Seg Neutrophils # Man Lymphocytes # (Manual) D-Dimer POC ABG pH 7.303 L POC ABG pCO2 49.2 H POC ABG pO2 73 L VBG pH Sodium Potassium Chloride 109.3 H Carbon Dioxide BUN 24 H Creatinine Glucose 108 H POC Glucose Hemoglobin A1c Lactic Acid Calcium 8.1 L Phosphorus Magnesium Iron TIBC AST ALT Troponin T C-Reactive Protein Total Protein Albumin Triglycerides LDL Cholesterol Direct HDL Cholesterol Urine pH Urine WBC (Auto) Vancomycin Trough Salicylates Acetaminophen % CD3 Cells % CD19 Cells Absolute CD19 Count Miscellaneous Test Crossmatch 09/06/18 09/06/18 09/06/18 04:55 11:29 14:40 WBC RBC Hgb Hct RDW Plt Count Lymph % (Auto) [place] % (Auto) Lymph # [place] # Seg Neutrophils % Seg Neuts % (Manual) Lymphocytes % (Manual) Nucleated RBC % Seg Neutrophils # Seg Neutrophils # Man Lymphocytes # (Manual) D-Dimer POC ABG pH POC ABG pCO2 POC ABG pO2 VBG pH Sodium Potassium Chloride Carbon Dioxide BUN Creatinine Glucose POC Glucose 124 H 149 H Hemoglobin A1c Lactic Acid Calcium Phosphorus Magnesium Iron TIBC AST ALT Troponin T C-Reactive Protein Total Protein Albumin Triglycerides LDL Cholesterol Direct HDL Cholesterol Urine pH Urine WBC (Auto) Vancomycin Trough 28.6 H Salicylates Acetaminophen % CD3 Cells % CD19 Cells Absolute CD19 Count Miscellaneous Test Crossmatch 09/06/18 09/06/18 09/07/18 17:43 20:08 00:39 WBC RBC Hgb Hct RDW Plt Count Lymph % (Auto) [place] % (Auto) Lymph # [place] # Seg Neutrophils % Seg Neuts % (Manual) Lymphocytes % (Manual) Nucleated RBC % Seg Neutrophils # Seg Neutrophils # Man Lymphocytes # (Manual) D-Dimer POC ABG pH POC ABG pCO2 POC ABG pO2 VBG pH Sodium Potassium Chloride Carbon Dioxide BUN Creatinine Glucose POC Glucose 138 H 118 H 131 H Hemoglobin A1c Lactic Acid Calcium Phosphorus Magnesium Iron TIBC AST ALT Troponin T C-Reactive Protein Total Protein Albumin Triglycerides LDL Cholesterol Direct HDL Cholesterol Urine pH Urine WBC (Auto) Vancomycin Trough Salicylates Acetaminophen % CD3 Cells % CD19 Cells Absolute CD19 Count Miscellaneous Test Crossmatch 09/07/18 09/07/18 09/07/18 05:40 05:40 12:03 WBC RBC 2.40 L Hgb 7.3 L Hct 22.5 L RDW 17.8 H Plt Count 92 L Lymph % (Auto) [place] % (Auto) Lymph # [place] # Seg Neutrophils % Seg Neuts % (Manual) 80.0 H Lymphocytes % (Manual) Nucleated RBC % 1.0 H Seg Neutrophils # Seg Neutrophils # Man Lymphocytes # (Manual) 0.8 L D-Dimer POC ABG pH POC ABG pCO2 POC ABG pO2 VBG pH Sodium Potassium Chloride 109.8 H Carbon Dioxide BUN 26 H Creatinine Glucose 118 H POC Glucose 145 H Hemoglobin A1c Lactic Acid Calcium 8.0 L Phosphorus Magnesium Iron 26 L TIBC 150 L AST 88 H ALT Troponin T C-Reactive Protein Total Protein 5.8 L Albumin 2.1 L Triglycerides LDL Cholesterol Direct HDL Cholesterol Urine pH Urine WBC (Auto) Vancomycin Trough Salicylates Acetaminophen % CD3 Cells % CD19 Cells Absolute CD19 Count Miscellaneous Test Crossmatch 09/07/18 09/07/18 09/08/18 17:39 23:21 05:48 WBC RBC Hgb Hct RDW Plt Count Lymph % (Auto) [place] % (Auto) Lymph # [place] # Seg Neutrophils % Seg Neuts % (Manual) Lymphocytes % (Manual) Nucleated RBC % Seg Neutrophils # Seg Neutrophils # Man Lymphocytes # (Manual) D-Dimer POC ABG pH POC ABG pCO2 POC ABG pO2 VBG pH Sodium Potassium Chloride Carbon Dioxide BUN Creatinine Glucose POC Glucose 128 H 136 H 129 H Hemoglobin A1c Lactic Acid Calcium Phosphorus Magnesium Iron TIBC AST ALT Troponin T C-Reactive Protein Total Protein Albumin Triglycerides LDL Cholesterol Direct HDL Cholesterol Urine pH Urine WBC (Auto) Vancomycin Trough Salicylates Acetaminophen % CD3 Cells % CD19 Cells Absolute CD19 Count Miscellaneous Test Crossmatch 09/08/18 09/08/18 09/08/18 06:17 10:06 10:42 WBC RBC Hgb Hct RDW Plt Count Lymph % (Auto) [place] % (Auto) Lymph # [place] # Seg Neutrophils % Seg Neuts % (Manual) Lymphocytes % (Manual) Nucleated RBC % Seg Neutrophils # Seg Neutrophils # Man Lymphocytes # (Manual) D-Dimer POC ABG pH 7.292 L 7.276 L POC ABG pCO2 56.9 H 65.1 H POC ABG pO2 VBG pH Sodium 146 H Potassium Chloride 109.1 H Carbon Dioxide BUN 28 H Creatinine Glucose 165 H POC Glucose Hemoglobin A1c Lactic Acid Calcium Phosphorus Magnesium Iron TIBC AST ALT Troponin T C-Reactive Protein Total Protein Albumin Triglycerides LDL Cholesterol Direct HDL Cholesterol Urine pH Urine WBC (Auto) Vancomycin Trough Salicylates Acetaminophen % CD3 Cells % CD19 Cells Absolute CD19 Count Miscellaneous Test Crossmatch 09/08/18 09/08/18 09/08/18 11:06 18:07 23:20 WBC RBC Hgb Hct RDW Plt Count Lymph % (Auto) [place] % (Auto) Lymph # [place] # Seg Neutrophils % Seg Neuts % (Manual) Lymphocytes % (Manual) Nucleated RBC % Seg Neutrophils # Seg Neutrophils # Man Lymphocytes # (Manual) D-Dimer POC ABG pH POC ABG pCO2 POC ABG pO2 VBG pH Sodium Potassium Chloride Carbon Dioxide BUN Creatinine Glucose POC Glucose 165 H 140 H 124 H Hemoglobin A1c Lactic Acid Calcium Phosphorus Magnesium Iron TIBC AST ALT Troponin T C-Reactive Protein Total Protein Albumin Triglycerides LDL Cholesterol Direct HDL Cholesterol Urine pH Urine WBC (Auto) Vancomycin Trough Salicylates Acetaminophen % CD3 Cells % CD19 Cells Absolute CD19 Count Miscellaneous Test Crossmatch 09/09/18 09/09/18 09/09/18 05:04 08:39 08:39 WBC RBC 2.60 L Hgb 8.1 L Hct 24.6 L RDW 17.9 H Plt Count Lymph % (Auto) [place] % (Auto) Lymph # [place] # Seg Neutrophils % Seg Neuts % (Manual) Lymphocytes % (Manual) Nucleated RBC % Seg Neutrophils # Seg Neutrophils # Man Lymphocytes # (Manual) D-Dimer POC ABG pH POC ABG pCO2 POC ABG pO2 VBG pH Sodium Potassium Chloride Carbon Dioxide BUN 32 H Creatinine Glucose 150 H POC Glucose 168 H Hemoglobin A1c Lactic Acid Calcium Phosphorus Magnesium Iron TIBC AST ALT Troponin T C-Reactive Protein Total Protein Albumin Triglycerides LDL Cholesterol Direct HDL Cholesterol Urine pH Urine WBC (Auto) Vancomycin Trough Salicylates Acetaminophen % CD3 Cells % CD19 Cells Absolute CD19 Count Miscellaneous Test Crossmatch 09/09/18 09/10/18 09/10/18 12:41 04:20 04:20 WBC RBC 2.49 L Hgb 7.7 L Hct 23.4 L RDW 18.0 H Plt Count Lymph % (Auto) 8.2 L [place] % (Auto) Lymph # 0.7 L [place] # Seg Neutrophils % 87.7 H Seg Neuts % (Manual) Lymphocytes % (Manual) Nucleated RBC % Seg Neutrophils # Seg Neutrophils # Man Lymphocytes # (Manual) D-Dimer POC ABG pH POC ABG pCO2 POC ABG pO2 VBG pH Sodium Potassium Chloride Carbon Dioxide 31 H BUN 39 H Creatinine Glucose 183 H POC Glucose 150 H Hemoglobin A1c Lactic Acid Calcium Phosphorus Magnesium Iron TIBC AST 85 H ALT 58 H Troponin T C-Reactive Protein Total Protein Albumin 2.5 L Triglycerides LDL Cholesterol Direct HDL Cholesterol Urine pH Urine WBC (Auto) Vancomycin Trough Salicylates Acetaminophen % CD3 Cells % CD19 Cells Absolute CD19 Count Miscellaneous Test Crossmatch 09/10/18 09/10/18 09/10/18 04:39 05:06 11:17 WBC RBC Hgb Hct RDW Plt Count Lymph % (Auto) [place] % (Auto) Lymph # [place] # Seg Neutrophils % Seg Neuts % (Manual) Lymphocytes % (Manual) Nucleated RBC % Seg Neutrophils # Seg Neutrophils # Man Lymphocytes # (Manual) D-Dimer POC ABG pH POC ABG pCO2 51.4 H POC ABG pO2 VBG pH Sodium Potassium Chloride Carbon Dioxide BUN Creatinine Glucose POC Glucose 185 H 159 H Hemoglobin A1c Lactic Acid Calcium Phosphorus Magnesium Iron TIBC AST ALT Troponin T C-Reactive Protein Total Protein Albumin Triglycerides LDL Cholesterol Direct HDL Cholesterol Urine pH Urine WBC (Auto) Vancomycin Trough Salicylates Acetaminophen % CD3 Cells % CD19 Cells Absolute CD19 Count Miscellaneous Test Crossmatch 09/10/18 09/11/18 09/11/18 16:57 00:17 01:10 WBC RBC Hgb Hct RDW Plt Count Lymph % (Auto) [place] % (Auto) Lymph # [place] # Seg Neutrophils % Seg Neuts % (Manual) Lymphocytes % (Manual) Nucleated RBC % Seg Neutrophils # Seg Neutrophils # Man Lymphocytes # (Manual) D-Dimer POC ABG pH POC ABG pCO2 POC ABG pO2 VBG pH Sodium Potassium Chloride Carbon Dioxide 34 H BUN 44 H Creatinine Glucose 154 H POC Glucose 177 H 163 H Hemoglobin A1c Lactic Acid Calcium Phosphorus Magnesium Iron TIBC AST 86 H ALT 68 H Troponin T C-Reactive Protein Total Protein Albumin 2.6 L Triglycerides LDL Cholesterol Direct HDL Cholesterol Urine pH Urine WBC (Auto) Vancomycin Trough Salicylates Acetaminophen % CD3 Cells % CD19 Cells Absolute CD19 Count Miscellaneous Test Crossmatch 09/11/18 09/11/18 09/11/18 01:10 06:03 09:00 WBC 13.7 H RBC 2.61 L Hgb 8.0 L Hct 24.6 L RDW 19.1 H Plt Count Lymph % (Auto) 6.1 L [place] % (Auto) Lymph # 0.8 L [place] # Seg Neutrophils % 87.7 H Seg Neuts % (Manual) Lymphocytes % (Manual) Nucleated RBC % Seg Neutrophils # 12.0 H Seg Neutrophils # Man Lymphocytes # (Manual) D-Dimer POC ABG pH POC ABG pCO2 POC ABG pO2 VBG pH Sodium Potassium Chloride Carbon Dioxide 33 H BUN 45 H Creatinine Glucose 147 H POC Glucose 180 H Hemoglobin A1c Lactic Acid Calcium Phosphorus Magnesium Iron TIBC AST ALT Troponin T C-Reactive Protein Total Protein Albumin Triglycerides LDL Cholesterol Direct HDL Cholesterol Urine pH Urine WBC (Auto) Vancomycin Trough Salicylates Acetaminophen % CD3 Cells % CD19 Cells Absolute CD19 Count Miscellaneous Test Crossmatch 09/11/18 09/11/18 09/11/18 11:14 11:31 17:11 WBC RBC Hgb Hct RDW Plt Count Lymph % (Auto) [place] % (Auto) Lymph # [place] # Seg Neutrophils % Seg Neuts % (Manual) Lymphocytes % (Manual) Nucleated RBC % Seg Neutrophils # Seg Neutrophils # Man Lymphocytes # (Manual) D-Dimer POC ABG pH 7.498 H POC ABG pCO2 46.3 H POC ABG pO2 VBG pH Sodium Potassium Chloride Carbon Dioxide BUN Creatinine Glucose POC Glucose 163 H 202 H Hemoglobin A1c Lactic Acid Calcium Phosphorus Magnesium Iron TIBC AST ALT Troponin T C-Reactive Protein Total Protein Albumin Triglycerides LDL Cholesterol Direct HDL Cholesterol Urine pH Urine WBC (Auto) Vancomycin Trough Salicylates Acetaminophen % CD3 Cells % CD19 Cells Absolute CD19 Count Miscellaneous Test Crossmatch 09/11/18 09/12/18 09/12/18 23:49 03:16 05:30 WBC RBC 2.36 L Hgb 7.3 L Hct 22.3 L RDW 18.4 H Plt Count Lymph % (Auto) 13.0 L [place] % (Auto) 9.3 H Lymph # 1.1 L [place]ulk # Seg Neutrophils % 77.5 H Seg Neuts % (Manual) Lymphocytes % (Manual) Nucleated RBC % Seg Neutrophils # Seg Neutrophils # Man Lymphocytes # (Manual) D-Dimer POC ABG pH 7.517 H POC ABG pCO2 48.8 H POC ABG pO2 VBG pH Sodium Potassium Chloride Carbon Dioxide BUN Creatinine Glucose POC Glucose 163 H Hemoglobin A1c Lactic Acid Calcium Phosphorus Magnesium Iron TIBC AST ALT Troponin T C-Reactive Protein Total Protein Albumin Triglycerides LDL Cholesterol Direct HDL Cholesterol Urine pH Urine WBC (Auto) Vancomycin Trough Salicylates Acetaminophen % CD3 Cells % CD19 Cells Absolute CD19 Count Miscellaneous Test Crossmatch 09/12/18 09/12/18 09/12/18 05:30 06:07 11:36 WBC RBC Hgb Hct RDW Plt Count Lymph % (Auto) [place] % (Auto) Lymph # [place] # Seg Neutrophils % Seg Neuts % (Manual) Lymphocytes % (Manual) Nucleated RBC % Seg Neutrophils # Seg Neutrophils # Man Lymphocytes # (Manual) D-Dimer POC ABG pH POC ABG pCO2 POC ABG pO2 VBG pH Sodium 148 H Potassium Chloride Carbon Dioxide 36 H BUN 46 H Creatinine Glucose 152 H POC Glucose 172 H 212 H Hemoglobin A1c Lactic Acid Calcium Phosphorus Magnesium Iron TIBC AST ALT Troponin T C-Reactive Protein Total Protein Albumin Triglycerides LDL Cholesterol Direct HDL Cholesterol Urine pH Urine WBC (Auto) Vancomycin Trough Salicylates Acetaminophen % CD3 Cells % CD19 Cells Absolute CD19 Count Miscellaneous Test Crossmatch 09/12/18 09/12/18 09/13/18 18:02 23:19 03:55 WBC RBC Hgb Hct RDW Plt Count Lymph % (Auto) [place] % (Auto) Lymph # [place] # Seg Neutrophils % Seg Neuts % (Manual) Lymphocytes % (Manual) Nucleated RBC % Seg Neutrophils # Seg Neutrophils # Man Lymphocytes # (Manual) D-Dimer POC ABG pH 7.520 H POC ABG pCO2 48.0 H POC ABG pO2 58 L VBG pH Sodium Potassium Chloride Carbon Dioxide BUN Creatinine Glucose POC Glucose 142 H 161 H Hemoglobin A1c Lactic Acid Calcium Phosphorus Magnesium Iron TIBC AST ALT Troponin T C-Reactive Protein Total Protein Albumin Triglycerides LDL Cholesterol Direct HDL Cholesterol Urine pH Urine WBC (Auto) Vancomycin Trough Salicylates Acetaminophen % CD3 Cells % CD19 Cells Absolute CD19 Count Miscellaneous Test Crossmatch 09/13/18 09/13/18 09/13/18 05:11 05:25 05:25 WBC RBC 2.38 L Hgb 7.6 L Hct 22.4 L RDW 18.6 H Plt Count Lymph % (Auto) [place] % (Auto) Lymph # [place] # Seg Neutrophils % Seg Neuts % (Manual) Lymphocytes % (Manual) Nucleated RBC % Seg Neutrophils # Seg Neutrophils # Man Lymphocytes # (Manual) D-Dimer POC ABG pH POC ABG pCO2 POC ABG pO2 VBG pH Sodium Potassium 3.2 L Chloride 97.5 L Carbon Dioxide 38 H BUN 38 H Creatinine 0.6 L Glucose 120 H POC Glucose 139 H Hemoglobin A1c Lactic Acid Calcium 8.1 L Phosphorus Magnesium Iron TIBC AST 120 H ALT 124 H Troponin T C-Reactive Protein Total Protein 5.9 L Albumin 2.6 L Triglycerides LDL Cholesterol Direct HDL Cholesterol Urine pH Urine WBC (Auto) Vancomycin Trough Salicylates Acetaminophen % CD3 Cells % CD19 Cells Absolute CD19 Count Miscellaneous Test Crossmatch 09/13/18 09/13/18 09/13/18 11:31 17:46 23:23 WBC RBC Hgb Hct RDW Plt Count Lymph % (Auto) [place] % (Auto) Lymph # [place] # Seg Neutrophils % Seg Neuts % (Manual) Lymphocytes % (Manual) Nucleated RBC % Seg Neutrophils # Seg Neutrophils # Man Lymphocytes # (Manual) D-Dimer POC ABG pH POC ABG pCO2 POC ABG pO2 VBG pH Sodium Potassium Chloride Carbon Dioxide BUN Creatinine Glucose POC Glucose 160 H 145 H 135 H Hemoglobin A1c Lactic Acid Calcium Phosphorus Magnesium Iron TIBC AST ALT Troponin T C-Reactive Protein Total Protein Albumin Triglycerides LDL Cholesterol Direct HDL Cholesterol Urine pH Urine WBC (Auto) Vancomycin Trough Salicylates Acetaminophen % CD3 Cells % CD19 Cells Absolute CD19 Count Miscellaneous Test Crossmatch 09/14/18 09/14/18 09/14/18 03:56 04:55 04:55 WBC RBC 2.28 L Hgb 7.1 L Hct 21.4 L RDW 18.2 H Plt Count Lymph % (Auto) [place] % (Auto) Lymph # [place] # Seg Neutrophils % 76.4 H Seg Neuts % (Manual) Lymphocytes % (Manual) Nucleated RBC % Seg Neutrophils # Seg Neutrophils # Man Lymphocytes # (Manual) D-Dimer POC ABG pH 7.503 H POC ABG pCO2 49.1 H POC ABG pO2 79 L VBG pH Sodium Potassium Chloride 97.7 L Carbon Dioxide 35 H BUN 32 H Creatinine 0.6 L Glucose 114 H POC Glucose Hemoglobin A1c Lactic Acid Calcium Phosphorus Magnesium Iron TIBC AST 60 H ALT 88 H Troponin T C-Reactive Protein Total Protein 5.6 L Albumin 2.2 L Triglycerides LDL Cholesterol Direct HDL Cholesterol Urine pH Urine WBC (Auto) Vancomycin Trough Salicylates Acetaminophen % CD3 Cells % CD19 Cells Absolute CD19 Count Miscellaneous Test Crossmatch 09/14/18 09/14/18 09/14/18 05:14 12:00 12:27 WBC RBC Hgb Hct RDW Plt Count Lymph % (Auto) [place] % (Auto) Lymph # [place] # Seg Neutrophils % Seg Neuts % (Manual) Lymphocytes % (Manual) Nucleated RBC % Seg Neutrophils # Seg Neutrophils # Man Lymphocytes # (Manual) D-Dimer POC ABG pH POC ABG pCO2 POC ABG pO2 VBG pH Sodium Potassium Chloride Carbon Dioxide BUN Creatinine Glucose POC Glucose 115 H 125 H Hemoglobin A1c Lactic Acid Calcium Phosphorus Magnesium Iron TIBC AST ALT Troponin T C-Reactive Protein Total Protein Albumin Triglycerides LDL Cholesterol Direct HDL Cholesterol Urine pH Urine WBC (Auto) Vancomycin Trough Salicylates Acetaminophen % CD3 Cells % CD19 Cells Absolute CD19 Count Miscellaneous Test Crossmatch See Detail 09/14/18 09/15/18 09/15/18 17:54 03:49 04:10 WBC RBC 2.46 L Hgb 7.7 L Hct 23.0 L RDW 18.6 H Plt Count Lymph % (Auto) [place] % (Auto) Lymph # 1.1 L [place] # Seg Neutrophils % 74.2 H Seg Neuts % (Manual) Lymphocytes % (Manual) Nucleated RBC % Seg Neutrophils # Seg Neutrophils # Man Lymphocytes # (Manual) D-Dimer POC ABG pH POC ABG pCO2 58.2 H POC ABG pO2 VBG pH Sodium Potassium Chloride Carbon Dioxide BUN Creatinine Glucose POC Glucose 138 H Hemoglobin A1c Lactic Acid Calcium Phosphorus Magnesium Iron TIBC AST ALT Troponin T C-Reactive Protein Total Protein Albumin Triglycerides LDL Cholesterol Direct HDL Cholesterol Urine pH Urine WBC (Auto) Vancomycin Trough Salicylates Acetaminophen % CD3 Cells % CD19 Cells Absolute CD19 Count Miscellaneous Test Crossmatch 09/15/18 09/15/18 09/15/18 04:10 11:36 11:36 WBC RBC Hgb Hct RDW Plt Count Lymph % (Auto) [place] % (Auto) Lymph # [place] # Seg Neutrophils % Seg Neuts % (Manual) Lymphocytes % (Manual) Nucleated RBC % Seg Neutrophils # Seg Neutrophils # Man Lymphocytes # (Manual) D-Dimer POC ABG pH POC ABG pCO2 53.5 H POC ABG pO2 67 L VBG pH Sodium Potassium Chloride Carbon Dioxide 35 H BUN 21 H Creatinine Glucose POC Glucose 108 H Hemoglobin A1c Lactic Acid Calcium 7.9 L Phosphorus Magnesium Iron TIBC AST ALT Troponin T C-Reactive Protein Total Protein Albumin Triglycerides LDL Cholesterol Direct HDL Cholesterol Urine pH Urine WBC (Auto) Vancomycin Trough Salicylates Acetaminophen % CD3 Cells % CD19 Cells Absolute CD19 Count Miscellaneous Test Crossmatch 09/16/18 09/16/18 09/16/18 01:16 04:25 11:30 WBC RBC 2.77 L Hgb 8.5 L Hct 25.6 L RDW 17.9 H Plt Count Lymph % (Auto) [place] % (Auto) Lymph # [place] # Seg Neutrophils % Seg Neuts % (Manual) Lymphocytes % (Manual) Nucleated RBC % Seg Neutrophils # Seg Neutrophils # Man Lymphocytes # (Manual) D-Dimer POC ABG pH 7.489 H POC ABG pCO2 47.6 H POC ABG pO2 62 L VBG pH Sodium Potassium Chloride Carbon Dioxide BUN Creatinine Glucose POC Glucose 108 H Hemoglobin A1c Lactic Acid Calcium Phosphorus Magnesium Iron TIBC AST ALT Troponin T C-Reactive Protein Total Protein Albumin Triglycerides LDL Cholesterol Direct HDL Cholesterol Urine pH Urine WBC (Auto) Vancomycin Trough Salicylates Acetaminophen % CD3 Cells % CD19 Cells Absolute CD19 Count Miscellaneous Test Crossmatch 09/16/18 09/16/18 09/17/18 11:30 23:07 04:22 WBC RBC Hgb Hct RDW Plt Count Lymph % (Auto) [place] % (Auto) Lymph # [place] # Seg Neutrophils % Seg Neuts % (Manual) Lymphocytes % (Manual) Nucleated RBC % Seg Neutrophils # Seg Neutrophils # Man Lymphocytes # (Manual) D-Dimer POC ABG pH 7.576 H POC ABG pCO2 POC ABG pO2 58 L VBG pH Sodium Potassium 3.2 L Chloride 96.6 L Carbon Dioxide 34 H BUN Creatinine Glucose 128 H POC Glucose 147 H Hemoglobin A1c Lactic Acid Calcium Phosphorus Magnesium Iron TIBC AST ALT Troponin T C-Reactive Protein Total Protein Albumin Triglycerides LDL Cholesterol Direct HDL Cholesterol Urine pH Urine WBC (Auto) Vancomycin Trough Salicylates Acetaminophen % CD3 Cells % CD19 Cells Absolute CD19 Count Miscellaneous Test Crossmatch 09/17/18 09/17/18 09/17/18 05:50 10:15 14:59 WBC RBC Hgb Hct RDW Plt Count Lymph % (Auto) [place] % (Auto) Lymph # [place] # Seg Neutrophils % Seg Neuts % (Manual) Lymphocytes % (Manual) Nucleated RBC % Seg Neutrophils # Seg Neutrophils # Man Lymphocytes # (Manual) D-Dimer POC ABG pH POC ABG pCO2 POC ABG pO2 VBG pH Sodium Potassium 2.6 L* Chloride 96.3 L Carbon Dioxide 33 H BUN Creatinine Glucose 151 H POC Glucose 138 H 151 H Hemoglobin A1c Lactic Acid Calcium Phosphorus Magnesium Iron TIBC AST ALT Troponin T C-Reactive Protein Total Protein Albumin Triglycerides LDL Cholesterol Direct HDL Cholesterol Urine pH Urine WBC (Auto) Vancomycin Trough Salicylates Acetaminophen % CD3 Cells % CD19 Cells Absolute CD19 Count Miscellaneous Test Crossmatch 09/17/18 09/17/18 09/18/18 17:51 Unknown 00:11 WBC RBC Hgb Hct RDW Plt Count Lymph % (Auto) [place] % (Auto) Lymph # [place] # Seg Neutrophils % Seg Neuts % (Manual) Lymphocytes % (Manual) Nucleated RBC % Seg Neutrophils # Seg Neutrophils # Man Lymphocytes # (Manual) D-Dimer POC ABG pH POC ABG pCO2 POC ABG pO2 VBG pH Sodium Potassium 2.7 L* Chloride 97.5 L Carbon Dioxide 32 H BUN Creatinine Glucose 142 H POC Glucose 149 H 128 H Hemoglobin A1c Lactic Acid Calcium Phosphorus Magnesium Iron TIBC AST ALT Troponin T C-Reactive Protein Total Protein Albumin Triglycerides LDL Cholesterol Direct HDL Cholesterol Urine pH Urine WBC (Auto) Vancomycin Trough Salicylates Acetaminophen % CD3 Cells % CD19 Cells Absolute CD19 Count Miscellaneous Test Crossmatch 09/18/18 09/18/18 09/18/18 04:20 04:20 04:28 WBC RBC 2.94 L Hgb 9.0 L Hct 27.2 L RDW 17.7 H Plt Count Lymph % (Auto) [place] % (Auto) 12.1 H Lymph # 1.0 L [place] # Seg Neutrophils % 70.2 H Seg Neuts % (Manual) Lymphocytes % (Manual) Nucleated RBC % Seg Neutrophils # Seg Neutrophils # Man Lymphocytes # (Manual) D-Dimer POC ABG pH 7.563 H POC ABG pCO2 POC ABG pO2 VBG pH Sodium Potassium 3.0 L Chloride Carbon Dioxide 33 H BUN Creatinine Glucose 133 H POC Glucose Hemoglobin A1c Lactic Acid Calcium Phosphorus Magnesium Iron TIBC AST ALT Troponin T C-Reactive Protein Total Protein Albumin Triglycerides LDL Cholesterol Direct HDL Cholesterol Urine pH Urine WBC (Auto) Vancomycin Trough Salicylates Acetaminophen % CD3 Cells % CD19 Cells Absolute CD19 Count Miscellaneous Test Crossmatch 09/18/18 09/18/18 09/19/18 06:19 14:45 00:13 WBC RBC Hgb Hct RDW Plt Count Lymph % (Auto) [place] % (Auto) Lymph # [place] # Seg Neutrophils % Seg Neuts % (Manual) Lymphocytes % (Manual) Nucleated RBC % Seg Neutrophils # Seg Neutrophils # Man Lymphocytes # (Manual) D-Dimer POC ABG pH POC ABG pCO2 POC ABG pO2 VBG pH Sodium Potassium Chloride Carbon Dioxide BUN Creatinine Glucose POC Glucose 140 H 164 H 111 H Hemoglobin A1c Lactic Acid Calcium Phosphorus Magnesium Iron TIBC AST ALT Troponin T C-Reactive Protein Total Protein Albumin Triglycerides LDL Cholesterol Direct HDL Cholesterol Urine pH Urine WBC (Auto) Vancomycin Trough Salicylates Acetaminophen % CD3 Cells % CD19 Cells Absolute CD19 Count Miscellaneous Test Crossmatch 09/19/18 09/19/18 09/19/18 03:38 05:08 05:20 WBC RBC Hgb Hct RDW Plt Count Lymph % (Auto) [place] % (Auto) Lymph # [place] # Seg Neutrophils % Seg Neuts % (Manual) Lymphocytes % (Manual) Nucleated RBC % Seg Neutrophils # Seg Neutrophils # Man Lymphocytes # (Manual) D-Dimer POC ABG pH 7.502 H POC ABG pCO2 34.6 L POC ABG pO2 73 L VBG pH Sodium Potassium 2.7 L* Chloride Carbon Dioxide BUN Creatinine 0.6 L Glucose 119 H POC Glucose 128 H Hemoglobin A1c Lactic Acid Calcium Phosphorus Magnesium Iron TIBC AST ALT Troponin T C-Reactive Protein Total Protein Albumin Triglycerides LDL Cholesterol Direct HDL Cholesterol Urine pH Urine WBC (Auto) Vancomycin Trough Salicylates Acetaminophen % CD3 Cells % CD19 Cells Absolute CD19 Count Miscellaneous Test Crossmatch 09/20/18 09/20/18 09/20/18 04:20 04:20 05:15 WBC RBC 2.89 L Hgb 9.1 L Hct 27.1 L RDW 17.1 H Plt Count Lymph % (Auto) 12.6 L [place] % (Auto) 10.7 H Lymph # 1.1 L [place] # 0.9 H Seg Neutrophils % 76.1 H Seg Neuts % (Manual) Lymphocytes % (Manual) Nucleated RBC % Seg Neutrophils # Seg Neutrophils # Man Lymphocytes # (Manual) D-Dimer POC ABG pH POC ABG pCO2 33.6 L POC ABG pO2 56 L VBG pH Sodium 136 L Potassium 2.9 L* Chloride Carbon Dioxide BUN Creatinine Glucose 116 H POC Glucose Hemoglobin A1c Lactic Acid Calcium Phosphorus Magnesium Iron TIBC AST ALT Troponin T C-Reactive Protein Total Protein Albumin Triglycerides LDL Cholesterol Direct HDL Cholesterol Urine pH Urine WBC (Auto) Vancomycin Trough Salicylates Acetaminophen % CD3 Cells % CD19 Cells Absolute CD19 Count Miscellaneous Test Crossmatch 09/20/18 09/20/18 09/20/18 11:26 16:10 23:50 WBC RBC Hgb Hct RDW Plt Count Lymph % (Auto) [place] % (Auto) Lymph # [place] # Seg Neutrophils % Seg Neuts % (Manual) Lymphocytes % (Manual) Nucleated RBC % Seg Neutrophils # Seg Neutrophils # Man Lymphocytes # (Manual) D-Dimer POC ABG pH POC ABG pCO2 POC ABG pO2 VBG pH Sodium Potassium Chloride Carbon Dioxide BUN Creatinine Glucose POC Glucose 163 H 119 H Hemoglobin A1c Lactic Acid Calcium Phosphorus Magnesium Iron TIBC AST ALT Troponin T C-Reactive Protein Total Protein Albumin Triglycerides LDL Cholesterol Direct HDL Cholesterol Urine pH 9.0 H Urine WBC (Auto) Vancomycin Trough Salicylates Acetaminophen % CD3 Cells % CD19 Cells Absolute CD19 Count Miscellaneous Test Crossmatch 09/21/18 09/21/18 09/21/18 04:35 04:35 11:30 WBC RBC 2.67 L Hgb 8.3 L Hct 25.1 L RDW 17.4 H Plt Count Lymph % (Auto) [place] % (Auto) 10.0 H Lymph # [place] # Seg Neutrophils % Seg Neuts % (Manual) Lymphocytes % (Manual) Nucleated RBC % Seg Neutrophils # Seg Neutrophils # Man Lymphocytes # (Manual) D-Dimer POC ABG pH POC ABG pCO2 POC ABG pO2 VBG pH Sodium Potassium Chloride Carbon Dioxide 21 L BUN 18 H Creatinine Glucose 106 H POC Glucose 110 H Hemoglobin A1c Lactic Acid Calcium Phosphorus Magnesium Iron TIBC AST ALT Troponin T C-Reactive Protein Total Protein Albumin Triglycerides LDL Cholesterol Direct HDL Cholesterol Urine pH Urine WBC (Auto) Vancomycin Trough Salicylates Acetaminophen % CD3 Cells % CD19 Cells Absolute CD19 Count Miscellaneous Test Crossmatch 09/22/18 09/22/18 09/22/18 04:11 12:30 17:54 WBC RBC Hgb Hct RDW Plt Count Lymph % (Auto) [place] % (Auto) Lymph # [place] # Seg Neutrophils % Seg Neuts % (Manual) Lymphocytes % (Manual) Nucleated RBC % Seg Neutrophils # Seg Neutrophils # Man Lymphocytes # (Manual) D-Dimer POC ABG pH POC ABG pCO2 POC ABG pO2 VBG pH Sodium Potassium Chloride Carbon Dioxide BUN 21 H Creatinine 0.6 L Glucose POC Glucose 120 H 122 H Hemoglobin A1c Lactic Acid Calcium Phosphorus Magnesium Iron TIBC AST ALT Troponin T C-Reactive Protein Total Protein Albumin Triglycerides LDL Cholesterol Direct HDL Cholesterol Urine pH Urine WBC (Auto) Vancomycin Trough Salicylates Acetaminophen % CD3 Cells % CD19 Cells Absolute CD19 Count Miscellaneous Test Crossmatch 09/23/18 09/23/18 09/23/18 05:29 12:01 18:23 WBC RBC Hgb Hct RDW Plt Count Lymph % (Auto) [place] % (Auto) Lymph # [place] # Seg Neutrophils % Seg Neuts % (Manual) Lymphocytes % (Manual) Nucleated RBC % Seg Neutrophils # Seg Neutrophils # Man Lymphocytes # (Manual) D-Dimer POC ABG pH POC ABG pCO2 POC ABG pO2 VBG pH Sodium Potassium Chloride Carbon Dioxide BUN Creatinine Glucose POC Glucose 163 H 144 H 138 H Hemoglobin A1c Lactic Acid Calcium Phosphorus Magnesium Iron TIBC AST ALT Troponin T C-Reactive Protein Total Protein Albumin Triglycerides LDL Cholesterol Direct HDL Cholesterol Urine pH Urine WBC (Auto) Vancomycin Trough Salicylates Acetaminophen % CD3 Cells % CD19 Cells Absolute CD19 Count Miscellaneous Test Crossmatch 09/23/18 09/24/18 09/24/18 23:53 03:41 03:41 WBC RBC 3.00 L Hgb 9.2 L Hct 28.1 L RDW 16.7 H Plt Count 105 L Lymph % (Auto) [place] % (Auto) 12.3 H Lymph # [place] # Seg Neutrophils % Seg Neuts % (Manual) Lymphocytes % (Manual) Nucleated RBC % Seg Neutrophils # Seg Neutrophils # Man Lymphocytes # (Manual) D-Dimer POC ABG pH POC ABG pCO2 POC ABG pO2 VBG pH Sodium Potassium Chloride Carbon Dioxide BUN 21 H Creatinine 0.5 L Glucose 109 H POC Glucose 122 H Hemoglobin A1c Lactic Acid Calcium Phosphorus Magnesium Iron TIBC AST ALT Troponin T C-Reactive Protein Total Protein Albumin Triglycerides LDL Cholesterol Direct HDL Cholesterol Urine pH Urine WBC (Auto) Vancomycin Trough Salicylates Acetaminophen % CD3 Cells % CD19 Cells Absolute CD19 Count Miscellaneous Test Crossmatch 09/24/18 09/24/18 05:43 11:38 WBC RBC Hgb Hct RDW Plt Count Lymph % (Auto) [place] % (Auto) Lymph # [place] # Seg Neutrophils % Seg Neuts % (Manual) Lymphocytes % (Manual) Nucleated RBC % Seg Neutrophils # Seg Neutrophils # Man Lymphocytes # (Manual) D-Dimer POC ABG pH POC ABG pCO2 POC ABG pO2 VBG pH Sodium Potassium Chloride Carbon Dioxide BUN Creatinine Glucose POC Glucose 110 H 132 H Hemoglobin A1c Lactic Acid Calcium Phosphorus Magnesium Iron TIBC AST ALT Troponin T C-Reactive Protein Total Protein Albumin Triglycerides LDL Cholesterol Direct HDL Cholesterol Urine pH Urine WBC (Auto) Vancomycin Trough Salicylates Acetaminophen % CD3 Cells % CD19 Cells Absolute CD19 Count Miscellaneous Test Crossmatch Chest x-ray: image reviewed Allied health notes reviewed: nursing
[2018-09-25] MEDS: DILAUDID PO SCH ×4 (03:04→17:32)
[2018-09-25] MEDS: HumaLOG SUB-Q SCH ×4 (03:08→17:39)
[2018-09-25 05:03] LABS: Hematocrit 28.8 % (30.3-42.9); Hemoglobin 9.5 gm/dl (10.1-14.3); Mean Corpuscular HGB Conc 33 % (30-34); Mean Corpuscular Volume 94 fl (79-97); Red Blood Count 3.07 M/mm3 (3.65-5.03); Red Cell Distribution Width 16.6 % (13.2-15.2)
[2018-09-25 05:11] LABS: BUN/Creatinine Ratio 40; Blood Urea Nitrogen 24 mg/dL (7-17); Calcium 9.4 mg/dL (8.4-10.2); Hemolysis Index 4
[2018-09-25] MEDS: APRESOLINE PO SCH ×3 (05:34→21:51)
[2018-09-25] MEDS: BROVANA NEBU IH SCH ×2 (08:14→19:24)
[2018-09-25] MEDS: PULMICORT IH SCH ×2 (08:14→19:24)
[2018-09-25] MEDS ORDERED: CATAPRES-TTS PATCH TD SCH (10:00)
[2018-09-25] MEDS: LASIX IV SCH (10:43)
[2018-09-25] MEDS: PEPCID PO SCH ×2 (10:43→21:51)
[2018-09-25] MEDS: ELIQUIS PO SCH ×2 (10:43→21:50)
[2018-09-25] MEDS: COREG PO SCH ×2 (10:46→21:51)
--- NOTE | 2018-09-25 14:58 | Progress Note ---
Assessment and Plan Acute hypoxic-hypercapnic respiratory failure on MVS Acute COPD exacerbation DVT NSTEMI Acute encephalopathy (toxic-metabolic) Thrombocytopenia Hypokalemia Acute kidney injury h/o Chronic Narcotic Dependence Aspiration pneumonia/CAP Hypokalemia GNR in tracheal aspirate Hypernatremia - place on T-piece as tolerated - ABG at 10 pm and continue RTC t-piece if tolerates - now s/p PEG; continue enteral nutrition - ST evaluation - s/p Midline placement - continue prn analgesia - Continue to Wean supplemental oxygen to keep O2 sats > 90% - follow clinically s/p AB's courses - continue accuchecks q6h and target glycemic control for BG 140 - 180 mg/dl acutely - continue seroquel slow taper while following clinically - continue lasix at 20 mg IV daily (diamox dosing completed) - continue daily SAT's & SBT's - VAP bundle addressed - CD4 count WNL - HIT assay negative but again developed thrombocytopenia with re-challenge so on Arixtra treatment dose for DVT - nephrology input appreciated - cardiology input appreciated - continue brovana & pulmicort re: COPD - continue to avoid benzodiazepines, use high dose fentanyl for agitation and analgesia - continue stress ulcer prophylaxis - continue VTE prophylaxis - continue enteral Nutrition as tolerated - Continue bronchodilators with pulmonary hygiene per RT - Maintenance of sleep -wake cycle - Mobility protocol for pressure ulcer prophylaxis as tolerated by hemodynamics - Influenza and pneumonia vaccination per protocol .... her not in room today at time of my examination ... re-evaluate in am & prn PROGNOSIS :FAIR CONDITION: CRITICAL CODE STATUS: FULL CODE The high probability of a clinically significant, sudden or life-threatening deterioration of the [respiratory, neurology, renal] system(s) required my full and direct attention, intervention and personal management. The aggregate critical care time was [34] minutes without overlap. Time includes spent on; [x] Data Review and interpretation [x] Patient assessment and monitoring of vital signs [x] Documentation [x] Medication orders and management Subjective Date of service: 09/25/18 Principal diagnosis: Acute hypoxemic hypercapnic Resp failure; AE-COPD; Acute kidney injury Interval history: Patient is seen today for: Acute hypoxemic - hypercapnic respiratory failure on MVS; Acute COPD exacerbation; Acute encephalopathy (toxic-metabolic); Hypokalemia; Acute kidney injury Seen and examined at bedside; 24hour events reviewed; nursing and respiratory care staff consulted; no adverse overnight events reported to me; remains on MVS; Objective Vital Signs - 12hr 09/25/18 09/25/18 09/25/18 03:00 03:31 04:00 Temperature 98.5 F Pulse Rate 80 76 73 Pulse Rate [ Anterior Bilateral Throughout] Pulse Rate [ Anterior Bilateral] Pulse Rate [ 78 From Monitor] Respiratory 16 22 21 Rate Respiratory Rate [Anterior Bilateral Throughout] Respiratory Rate [Anterior Bilateral] Respiratory Rate [ Generalized] Blood Pressure 101/56 101/56 90/37 O2 Sat by Pulse 99 98 98 Oximetry O2 Sat by Pulse Oximetry [ Assessment] 09/25/18 09/25/18 09/25/18 04:01 04:31 05:01 Temperature Pulse Rate 75 71 76 Pulse Rate [ Anterior Bilateral Throughout] Pulse Rate [ Anterior Bilateral] Pulse Rate [ From Monitor] Respiratory 21 15 16 Rate Respiratory Rate [Anterior Bilateral Throughout] Respiratory Rate [Anterior Bilateral] Respiratory Rate [ Generalized] Blood Pressure 90/37 90/37 122/38 O2 Sat by Pulse 98 98 99 Oximetry O2 Sat by Pulse Oximetry [ Assessment] 09/25/18 09/25/18 09/25/18 05:31 06:01 06:31 Temperature Pulse Rate 74 75 76 Pulse Rate [ Anterior Bilateral Throughout] Pulse Rate [ Anterior Bilateral] Pulse Rate [ From Monitor] Respiratory 22 19 15 Rate Respiratory Rate [Anterior Bilateral Throughout] Respiratory Rate [Anterior Bilateral] Respiratory Rate [ Generalized] Blood Pressure 122/38 122/38 122/38 O2 Sat by Pulse 99 99 97 Oximetry O2 Sat by Pulse Oximetry [ Assessment] 09/25/18 09/25/18 09/25/18 07:01 07:25 07:31 Temperature Pulse Rate 82 74 Pulse Rate [ Anterior Bilateral Throughout] Pulse Rate [ Anterior Bilateral] Pulse Rate [ From Monitor] Respiratory 23 17 21 Rate Respiratory Rate [Anterior Bilateral Throughout] Respiratory Rate [Anterior Bilateral] Respiratory Rate [ Generalized] Blood Pressure 118/57 118/57 O2 Sat by Pulse 98 99 Oximetry O2 Sat by Pulse Oximetry [ Assessment] 09/25/18 09/25/18 09/25/18 08:00 08:01 08:14 Temperature 98.1 F Pulse Rate 77 77 Pulse Rate [ 75 Anterior Bilateral Throughout] Pulse Rate [ 75 Anterior Bilateral] Pulse Rate [ 74 From Monitor] Respiratory 18 21 Rate Respiratory 22 Rate [Anterior Bilateral Throughout] Respiratory 22 Rate [Anterior Bilateral] Respiratory Rate [ Generalized] Blood Pressure 127/61 O2 Sat by Pulse 99 100 98 Oximetry O2 Sat by Pulse 98 Oximetry [ Assessment] 09/25/18 09/25/18 09/25/18 08:29 08:31 09:00 Temperature Pulse Rate 79 68 Pulse Rate [ 79 Anterior Bilateral Throughout] Pulse Rate [ 79 Anterior Bilateral] Pulse Rate [ From Monitor] Respiratory 20 22 Rate Respiratory 19 Rate [Anterior Bilateral Throughout] Respiratory 19 Rate [Anterior Bilateral] Respiratory Rate [ Generalized] Blood Pressure 127/61 127/61 O2 Sat by Pulse 99 99 Oximetry O2 Sat by Pulse Oximetry [ Assessment] 09/25/18 09/25/18 09/25/18 09:31 10:00 10:01 Temperature Pulse Rate 82 73 Pulse Rate [ Anterior Bilateral Throughout] Pulse Rate [ Anterior Bilateral] Pulse Rate [ From Monitor] Respiratory 21 17 Rate Respiratory Rate [Anterior Bilateral Throughout] Respiratory Rate [Anterior Bilateral] Respiratory 18 Rate [ Generalized] Blood Pressure 127/67 94/41 O2 Sat by Pulse 72 L Oximetry O2 Sat by Pulse Oximetry [ Assessment] 09/25/18 09/25/18 09/25/18 10:46 11:00 12:00 Temperature 98.6 F Pulse Rate 69 71 77 Pulse Rate [ Anterior Bilateral Throughout] Pulse Rate [ Anterior Bilateral] Pulse Rate [ 71 From Monitor] Respiratory 18 17 Rate Respiratory Rate [Anterior Bilateral Throughout] Respiratory Rate [Anterior Bilateral] Respiratory Rate [ Generalized] Blood Pressure 134/55 94/41 O2 Sat by Pulse 99 99 Oximetry O2 Sat by Pulse Oximetry [ Assessment] 09/25/18 09/25/18 12:15 12:31 Temperature Pulse Rate 73 77 Pulse Rate [ Anterior Bilateral Throughout] Pulse Rate [ Anterior Bilateral] Pulse Rate [ From Monitor] Respiratory 22 21 Rate Respiratory Rate [Anterior Bilateral Throughout] Respiratory Rate [Anterior Bilateral] Respiratory Rate [ Generalized] Blood Pressure 103/54 O2 Sat by Pulse 97 98 Oximetry O2 Sat by Pulse Oximetry [ Assessment] Constitutional: appears uncomfortable, other (elderly looking CF, normocephalic and atraumatic) Eyes: non-icteric ENT: oropharynx moist, other (s/p tracheostomy) Neck: supple, no lymphadenopathy, no JVD, other (no thyromegaly) Effort: mildly labored Ascultation: Bilateral: diminished breath sounds, rales, rhonchi (improved) Percussion: Bilateral: not dull Cardiovascular: regular rate and rhythm Gastrointestinal: normoactive bowel sounds, soft, non-tender, non-distended Integumentary: normal Extremities: no cyanosis, no ischemia or petechiae, edema (Left lower extremity) Neurologic: normal mental status, non-focal exam (grossly), pupils equal and round, CN II-XII normal, motor strength normal and Psychiatric: mood appropriate, affect normal CBC and BMP: 09/25/18 04:17 09/25/18 04:17 ABG, PT/INR, D-dimer: ABG POC ABG pH 7.516 (7.35-7.45) H 09/24/18 23:24 POC ABG pCO2 37.6 (35-45) 09/24/18 23:24 POC ABG pO2 94 (80-105) 09/24/18 23:24 POC ABG HCO3 30.5 (22-26 mml/L) 09/24/18 23:24 POC ABG Total CO2 32 (23-27mmol/L) 09/24/18 23:24 POC ABG O2 Sat 98 09/24/18 23:24 PT/INR, D-dimer PT 14.2 Sec. (12.2-14.9) 09/14/18 04:55 INR 1.04 (0.87-1.13) 09/14/18 04:55 D-Dimer 2768.33 ng/mlDDU (0-234) H 08/15/18 18:31 Abnormal lab findings: Abnormal Labs 08/15/18 08/15/18 08/15/18 17:52 17:52 17:52 WBC 12.7 H RBC 3.25 L Hgb Hct RDW Plt Count Lymph % (Auto) [place] % (Auto) Lymph # [place] # Seg Neutrophils % Seg Neuts % (Manual) Lymphocytes % (Manual) 6.0 L Nucleated RBC % Seg Neutrophils # Seg Neutrophils # Man Lymphocytes # (Manual) 0.8 L D-Dimer POC ABG pH POC ABG pCO2 POC ABG pO2 VBG pH Sodium Potassium 3.4 L Chloride 94.6 L Carbon Dioxide 17 L BUN 67 H Creatinine 3.5 H Glucose 131 H POC Glucose Hemoglobin A1c Lactic Acid 5.20 H* Calcium 7.6 L Phosphorus Magnesium Iron TIBC AST 887 H ALT 316 H Troponin T C-Reactive Protein Total Protein Albumin 3.1 L Triglycerides LDL Cholesterol Direct HDL Cholesterol Urine pH Urine WBC (Auto) Vancomycin Trough Salicylates Acetaminophen % CD3 Cells % CD19 Cells Absolute CD19 Count Miscellaneous Test Crossmatch 08/15/18 08/15/18 08/15/18 18:11 18:19 18:31 WBC RBC Hgb Hct RDW Plt Count Lymph % (Auto) [place] % (Auto) Lymph # [place] # Seg Neutrophils % Seg Neuts % (Manual) Lymphocytes % (Manual) Nucleated RBC % Seg Neutrophils # Seg Neutrophils # Man Lymphocytes # (Manual) D-Dimer 2768.33 H POC ABG pH 7.173 L POC ABG pCO2 47.8 H POC ABG pO2 177 H VBG pH 7.187 L* Sodium Potassium Chloride Carbon Dioxide BUN Creatinine Glucose POC Glucose Hemoglobin A1c Lactic Acid Calcium Phosphorus Magnesium Iron TIBC AST ALT Troponin T C-Reactive Protein Total Protein Albumin Triglycerides LDL Cholesterol Direct HDL Cholesterol Urine pH Urine WBC (Auto) Vancomycin Trough Salicylates Acetaminophen % CD3 Cells % CD19 Cells Absolute CD19 Count Miscellaneous Test Crossmatch 08/15/18 08/15/18 08/15/18 18:31 19:14 19:14 WBC RBC Hgb Hct RDW Plt Count Lymph % (Auto) [place] % (Auto) Lymph # [place] # Seg Neutrophils % Seg Neuts % (Manual) Lymphocytes % (Manual) Nucleated RBC % Seg Neutrophils # Seg Neutrophils # Man Lymphocytes # (Manual) D-Dimer POC ABG pH POC ABG pCO2 POC ABG pO2 VBG pH Sodium Potassium Chloride Carbon Dioxide BUN Creatinine Glucose POC Glucose Hemoglobin A1c Lactic Acid 2.70 H* Calcium Phosphorus Magnesium Iron TIBC AST ALT Troponin T 0.454 H* C-Reactive Protein Total Protein Albumin Triglycerides 356 H LDL Cholesterol Direct 4 L HDL Cholesterol 10 L Urine pH Urine WBC (Auto) Vancomycin Trough Salicylates < 0.3 L Acetaminophen % CD3 Cells % CD19 Cells Absolute CD19 Count Miscellaneous Test Crossmatch 08/15/18 08/15/18 08/15/18 19:14 19:15 23:09 WBC RBC Hgb Hct RDW Plt Count Lymph % (Auto) [place] % (Auto) Lymph # [place] # Seg Neutrophils % Seg Neuts % (Manual) Lymphocytes % (Manual) Nucleated RBC % Seg Neutrophils # Seg Neutrophils # Man Lymphocytes # (Manual) D-Dimer POC ABG pH POC ABG pCO2 POC ABG pO2 VBG pH Sodium Potassium Chloride Carbon Dioxide BUN Creatinine Glucose POC Glucose Hemoglobin A1c Lactic Acid 3.20 H* Calcium Phosphorus Magnesium Iron TIBC AST ALT Troponin T C-Reactive Protein Total Protein Albumin Triglycerides LDL Cholesterol Direct HDL Cholesterol Urine pH Urine WBC (Auto) 17.0 H Vancomycin Trough Salicylates Acetaminophen < 5.0 L % CD3 Cells % CD19 Cells Absolute CD19 Count Miscellaneous Test Crossmatch 08/15/18 08/16/18 08/16/18 23:09 01:41 05:38 WBC RBC 3.07 L Hgb 9.8 L Hct 28.7 L RDW Plt Count Lymph % (Auto) [place] % (Auto) Lymph # [place] # Seg Neutrophils % Seg Neuts % (Manual) 84.0 H Lymphocytes % (Manual) 6.0 L Nucleated RBC % 4.0 H Seg Neutrophils # Seg Neutrophils # Man Lymphocytes # (Manual) 0.5 L D-Dimer POC ABG pH 7.323 L POC ABG pCO2 34.7 L POC ABG pO2 78 L VBG pH Sodium Potassium Chloride Carbon Dioxide BUN Creatinine Glucose POC Glucose Hemoglobin A1c 6.4 H Lactic Acid Calcium Phosphorus Magnesium Iron TIBC AST ALT Troponin T C-Reactive Protein Total Protein Albumin Triglycerides LDL Cholesterol Direct HDL Cholesterol Urine pH Urine WBC (Auto) Vancomycin Trough Salicylates Acetaminophen % CD3 Cells % CD19 Cells Absolute CD19 Count Miscellaneous Test Crossmatch 08/16/18 08/16/18 08/17/18 05:38 22:43 03:42 WBC RBC Hgb Hct RDW Plt Count Lymph % (Auto) [place] % (Auto) Lymph # [place] # Seg Neutrophils % Seg Neuts % (Manual) Lymphocytes % (Manual) Nucleated RBC % Seg Neutrophils # Seg Neutrophils # Man Lymphocytes # (Manual) D-Dimer POC ABG pH POC ABG pCO2 POC ABG pO2 VBG pH Sodium Potassium 2.9 L* 3.1 L 2.9 L* Chloride 108.8 H 111.9 H Carbon Dioxide 17 L 19 L 21 L BUN 62 H 40 H 33 H Creatinine 2.0 H Glucose 139 H 145 H POC Glucose Hemoglobin A1c Lactic Acid Calcium 7.8 L 8.3 L Phosphorus 1.50 L Magnesium Iron TIBC AST 619 H ALT 353 H Troponin T C-Reactive Protein Total Protein 6.1 L Albumin 2.8 L Triglycerides LDL Cholesterol Direct HDL Cholesterol Urine pH Urine WBC (Auto) Vancomycin Trough Salicylates Acetaminophen % CD3 Cells % CD19 Cells Absolute CD19 Count Miscellaneous Test Crossmatch 08/17/18 08/17/18 08/18/18 11:02 16:42 03:28 WBC RBC Hgb Hct RDW Plt Count Lymph % (Auto) [place] % (Auto) Lymph # [place] # Seg Neutrophils % Seg Neuts % (Manual) Lymphocytes % (Manual) Nucleated RBC % Seg Neutrophils # Seg Neutrophils # Man Lymphocytes # (Manual) D-Dimer POC ABG pH 7.483 H 7.499 H POC ABG pCO2 POC ABG pO2 VBG pH Sodium 147 H Potassium 3.2 L Chloride 115.8 H Carbon Dioxide BUN 23 H Creatinine Glucose 121 H POC Glucose Hemoglobin A1c Lactic Acid Calcium 8.1 L Phosphorus 2.30 L D Magnesium Iron TIBC AST ALT Troponin T C-Reactive Protein Total Protein Albumin Triglycerides LDL Cholesterol Direct HDL Cholesterol Urine pH Urine WBC (Auto) Vancomycin Trough Salicylates Acetaminophen % CD3 Cells % CD19 Cells Absolute CD19 Count Miscellaneous Test Crossmatch 08/18/18 08/18/18 08/18/18 04:10 13:39 13:39 WBC RBC Hgb Hct RDW Plt Count Lymph % (Auto) [place] % (Auto) Lymph # [place] # Seg Neutrophils % Seg Neuts % (Manual) Lymphocytes % (Manual) Nucleated RBC % Seg Neutrophils # Seg Neutrophils # Man Lymphocytes # (Manual) D-Dimer POC ABG pH POC ABG pCO2 POC ABG pO2 VBG pH Sodium 147 H Potassium 3.3 L Chloride 111.9 H Carbon Dioxide BUN 21 H Creatinine Glucose 113 H POC Glucose Hemoglobin A1c Lactic Acid Calcium Phosphorus 1.50 L D Magnesium Iron TIBC AST ALT Troponin T 0.317 H* D C-Reactive Protein 10.70 H Total Protein Albumin Triglycerides LDL Cholesterol Direct HDL Cholesterol Urine pH Urine WBC (Auto) Vancomycin Trough Salicylates Acetaminophen % CD3 Cells % CD19 Cells Absolute CD19 Count Miscellaneous Test Crossmatch 08/18/18 08/19/18 08/19/18 16:51 03:47 04:15 WBC RBC Hgb Hct RDW Plt Count Lymph % (Auto) [place] % (Auto) Lymph # [place] # Seg Neutrophils % Seg Neuts % (Manual) Lymphocytes % (Manual) Nucleated RBC % Seg Neutrophils # Seg Neutrophils # Man Lymphocytes # (Manual) D-Dimer POC ABG pH 7.454 H 7.482 H POC ABG pCO2 POC ABG pO2 65 L VBG pH Sodium 154 H Potassium 3.3 L Chloride 115.1 H Carbon Dioxide BUN 19 H Creatinine Glucose 117 H POC Glucose Hemoglobin A1c Lactic Acid Calcium 7.8 L Phosphorus Magnesium Iron TIBC AST ALT Troponin T C-Reactive Protein Total Protein Albumin Triglycerides LDL Cholesterol Direct HDL Cholesterol Urine pH Urine WBC (Auto) Vancomycin Trough Salicylates Acetaminophen % CD3 Cells % CD19 Cells Absolute CD19 Count Miscellaneous Test Crossmatch 08/19/18 08/19/18 08/20/18 14:32 16:18 03:51 WBC RBC Hgb Hct RDW Plt Count Lymph % (Auto) [place] % (Auto) Lymph # [place] # Seg Neutrophils % Seg Neuts % (Manual) Lymphocytes % (Manual) Nucleated RBC % Seg Neutrophils # Seg Neutrophils # Man Lymphocytes # (Manual) D-Dimer POC ABG pH 7.483 H POC ABG pCO2 33.4 L POC ABG pO2 51 L 74 L VBG pH Sodium Potassium Chloride Carbon Dioxide BUN Creatinine Glucose POC Glucose Hemoglobin A1c Lactic Acid Calcium Phosphorus Magnesium Iron TIBC AST ALT Troponin T C-Reactive Protein Total Protein Albumin Triglycerides LDL Cholesterol Direct HDL Cholesterol Urine pH Urine WBC (Auto) Vancomycin Trough Salicylates Acetaminophen % CD3 Cells 44 L % CD19 Cells 41 H Absolute CD19 Count 1290 H Miscellaneous Test Crossmatch 08/20/18 08/21/18 08/21/18 05:25 03:54 05:45 WBC 24.1 H RBC 2.83 L Hgb 8.8 L Hct 26.7 L RDW 15.7 H Plt Count 127 L Lymph % (Auto) [place] % (Auto) Lymph # [place] # Seg Neutrophils % Seg Neuts % (Manual) 94.0 H Lymphocytes % (Manual) 4.0 L Nucleated RBC % 1.0 H Seg Neutrophils # Seg Neutrophils # Man 22.7 H Lymphocytes # (Manual) 1.0 L D-Dimer POC ABG pH POC ABG pCO2 31.9 L POC ABG pO2 66 L VBG pH Sodium 146 H D Potassium Chloride 111.2 H Carbon Dioxide BUN 24 H Creatinine Glucose 141 H POC Glucose Hemoglobin A1c Lactic Acid Calcium 8.1 L Phosphorus Magnesium Iron TIBC AST 65 H ALT 104 H Troponin T C-Reactive Protein Total Protein 6.2 L Albumin 2.6 L Triglycerides LDL Cholesterol Direct HDL Cholesterol Urine pH Urine WBC (Auto) Vancomycin Trough Salicylates Acetaminophen % CD3 Cells % CD19 Cells Absolute CD19 Count Miscellaneous Test Crossmatch 08/21/18 08/22/18 08/22/18 05:45 06:20 06:45 WBC RBC Hgb Hct RDW Plt Count Lymph % (Auto) [place] % (Auto) Lymph # [place] # Seg Neutrophils % Seg Neuts % (Manual) Lymphocytes % (Manual) Nucleated RBC % Seg Neutrophils # Seg Neutrophils # Man Lymphocytes # (Manual) D-Dimer POC ABG pH POC ABG pCO2 32.9 L POC ABG pO2 VBG pH Sodium Potassium 3.5 L Chloride 109.4 H 112.4 H Carbon Dioxide 21 L 20 L BUN 50 H 61 H Creatinine 2.0 H D 1.9 H Glucose 144 H 154 H POC Glucose Hemoglobin A1c Lactic Acid Calcium 7.6 L 7.8 L Phosphorus Magnesium Iron TIBC AST ALT Troponin T C-Reactive Protein Total Protein 5.3 L Albumin 2.1 L Triglycerides LDL Cholesterol Direct HDL Cholesterol Urine pH Urine WBC (Auto) Vancomycin Trough Salicylates Acetaminophen % CD3 Cells % CD19 Cells Absolute CD19 Count Miscellaneous Test Crossmatch 08/22/18 08/22/18 08/22/18 06:45 15:29 18:40 WBC RBC Hgb Hct RDW Plt Count Lymph % (Auto) [place] % (Auto) Lymph # [place] # Seg Neutrophils % Seg Neuts % (Manual) Lymphocytes % (Manual) Nucleated RBC % Seg Neutrophils # Seg Neutrophils # Man Lymphocytes # (Manual) D-Dimer POC ABG pH POC ABG pCO2 POC ABG pO2 VBG pH Sodium Potassium Chloride Carbon Dioxide BUN Creatinine Glucose POC Glucose 169 H Hemoglobin A1c Lactic Acid Calcium Phosphorus Magnesium Iron TIBC AST ALT Troponin T C-Reactive Protein 4.70 H Total Protein Albumin Triglycerides 197 H LDL Cholesterol Direct HDL Cholesterol Urine pH Urine WBC (Auto) Vancomycin Trough Salicylates Acetaminophen % CD3 Cells % CD19 Cells Absolute CD19 Count Miscellaneous Test Crossmatch 08/23/18 08/23/18 08/23/18 03:59 21:19 Unknown WBC 12.1 H RBC 2.29 L Hgb 7.1 L Hct 21.7 L RDW 15.7 H Plt Count 106 L Lymph % (Auto) [place] % (Auto) Lymph # [place] # Seg Neutrophils % Seg Neuts % (Manual) 92.0 H Lymphocytes % (Manual) 4.0 L Nucleated RBC % Seg Neutrophils # Seg Neutrophils # Man 11.1 H Lymphocytes # (Manual) 0.5 L D-Dimer POC ABG pH 7.306 L POC ABG pCO2 31.3 L POC ABG pO2 119 H 75 L VBG pH Sodium Potassium Chloride Carbon Dioxide BUN Creatinine Glucose POC Glucose Hemoglobin A1c Lactic Acid Calcium Phosphorus Magnesium Iron TIBC AST ALT Troponin T C-Reactive Protein Total Protein Albumin Triglycerides LDL Cholesterol Direct HDL Cholesterol Urine pH Urine WBC (Auto) Vancomycin Trough Salicylates Acetaminophen % CD3 Cells % CD19 Cells Absolute CD19 Count Miscellaneous Test Crossmatch 08/23/18 08/24/18 08/24/18 Unknown 04:18 08:30 WBC 12.8 H RBC 2.24 L Hgb 7.0 L Hct 21.1 L RDW Plt Count Lymph % (Auto) [place] % (Auto) Lymph # [place] # Seg Neutrophils % Seg Neuts % (Manual) 93.0 H Lymphocytes % (Manual) 6.0 L Nucleated RBC % Seg Neutrophils # Seg Neutrophils # Man 11.9 H Lymphocytes # (Manual) 0.8 L D-Dimer POC ABG pH POC ABG pCO2 POC ABG pO2 78 L VBG pH Sodium Potassium Chloride 115.7 H Carbon Dioxide 21 L BUN 64 H Creatinine 2.0 H Glucose 149 H POC Glucose Hemoglobin A1c Lactic Acid Calcium 7.5 L Phosphorus Magnesium Iron TIBC AST ALT Troponin T C-Reactive Protein Total Protein 4.8 L Albumin 2.0 L Triglycerides LDL Cholesterol Direct HDL Cholesterol Urine pH Urine WBC (Auto) Vancomycin Trough Salicylates Acetaminophen % CD3 Cells % CD19 Cells Absolute CD19 Count Miscellaneous Test Crossmatch 08/24/18 08/24/18 08/24/18 08:30 17:44 18:28 WBC RBC Hgb Hct RDW Plt Count Lymph % (Auto) [place] % (Auto) Lymph # [place] # Seg Neutrophils % Seg Neuts % (Manual) Lymphocytes % (Manual) Nucleated RBC % Seg Neutrophils # Seg Neutrophils # Man Lymphocytes # (Manual) D-Dimer POC ABG pH 7.474 H POC ABG pCO2 POC ABG pO2 61 L VBG pH Sodium Potassium Chloride 108.3 H Carbon Dioxide 20 L BUN 65 H Creatinine 2.0 H Glucose 167 H POC Glucose 164 H Hemoglobin A1c Lactic Acid Calcium 7.7 L Phosphorus Magnesium Iron TIBC AST ALT Troponin T C-Reactive Protein Total Protein 5.3 L Albumin 2.2 L Triglycerides LDL Cholesterol Direct HDL Cholesterol Urine pH Urine WBC (Auto) Vancomycin Trough Salicylates Acetaminophen % CD3 Cells % CD19 Cells Absolute CD19 Count Miscellaneous Test Crossmatch 08/25/18 08/25/18 08/25/18 03:35 05:20 05:20 WBC RBC Hgb 6.7 L Hct 21.0 L RDW Plt Count Lymph % (Auto) [place] % (Auto) Lymph # [place] # Seg Neutrophils % Seg Neuts % (Manual) Lymphocytes % (Manual) Nucleated RBC % Seg Neutrophils # Seg Neutrophils # Man Lymphocytes # (Manual) D-Dimer POC ABG pH POC ABG pCO2 POC ABG pO2 79 L VBG pH Sodium Potassium Chloride Carbon Dioxide 21 L BUN 71 H Creatinine 3.1 H D Glucose 171 H POC Glucose Hemoglobin A1c Lactic Acid Calcium 7.5 L Phosphorus Magnesium Iron TIBC AST ALT Troponin T C-Reactive Protein Total Protein Albumin Triglycerides LDL Cholesterol Direct HDL Cholesterol Urine pH Urine WBC (Auto) Vancomycin Trough Salicylates Acetaminophen % CD3 Cells % CD19 Cells Absolute CD19 Count Miscellaneous Test Crossmatch 08/25/18 08/25/18 08/25/18 05:20 08:52 12:42 WBC RBC Hgb Hct RDW Plt Count Lymph % (Auto) [place] % (Auto) Lymph # [place] # Seg Neutrophils % Seg Neuts % (Manual) Lymphocytes % (Manual) Nucleated RBC % Seg Neutrophils # Seg Neutrophils # Man Lymphocytes # (Manual) D-Dimer POC ABG pH POC ABG pCO2 POC ABG pO2 VBG pH Sodium Potassium Chloride Carbon Dioxide BUN Creatinine Glucose POC Glucose 166 H Hemoglobin A1c Lactic Acid Calcium Phosphorus Magnesium Iron TIBC AST ALT Troponin T C-Reactive Protein 5.00 H Total Protein Albumin Triglycerides LDL Cholesterol Direct HDL Cholesterol Urine pH Urine WBC (Auto) Vancomycin Trough Salicylates Acetaminophen % CD3 Cells % CD19 Cells Absolute CD19 Count Miscellaneous Test Crossmatch See Detail 08/25/18 08/26/18 08/26/18 18:05 00:13 04:53 WBC RBC Hgb Hct RDW Plt Count Lymph % (Auto) [place] % (Auto) Lymph # [place] # Seg Neutrophils % Seg Neuts % (Manual) Lymphocytes % (Manual) Nucleated RBC % Seg Neutrophils # Seg Neutrophils # Man Lymphocytes # (Manual) D-Dimer POC ABG pH POC ABG pCO2 30.9 L POC ABG pO2 70 L VBG pH Sodium Potassium Chloride Carbon Dioxide BUN Creatinine Glucose POC Glucose 121 H 164 H Hemoglobin A1c Lactic Acid Calcium Phosphorus Magnesium Iron TIBC AST ALT Troponin T C-Reactive Protein Total Protein Albumin Triglycerides LDL Cholesterol Direct HDL Cholesterol Urine pH Urine WBC (Auto) Vancomycin Trough Salicylates Acetaminophen % CD3 Cells % CD19 Cells Absolute CD19 Count Miscellaneous Test Crossmatch 08/26/18 08/26/18 08/26/18 05:42 06:00 06:00 WBC RBC 2.62 L Hgb 7.7 L Hct 23.0 L RDW 22.0 H Plt Count Lymph % (Auto) 6.3 L [place] % (Auto) Lymph # 0.7 L [place] # Seg Neutrophils % 88.1 H Seg Neuts % (Manual) Lymphocytes % (Manual) Nucleated RBC % Seg Neutrophils # 9.6 H Seg Neutrophils # Man Lymphocytes # (Manual) D-Dimer POC ABG pH POC ABG pCO2 POC ABG pO2 VBG pH Sodium Potassium Chloride Carbon Dioxide 21 L BUN 70 H Creatinine 3.3 H Glucose 146 H POC Glucose 149 H Hemoglobin A1c Lactic Acid Calcium 8.0 L Phosphorus Magnesium Iron TIBC AST ALT Troponin T C-Reactive Protein Total Protein Albumin Triglycerides LDL Cholesterol Direct HDL Cholesterol Urine pH Urine WBC (Auto) Vancomycin Trough Salicylates Acetaminophen % CD3 Cells % CD19 Cells Absolute CD19 Count Miscellaneous Test Crossmatch 08/26/18 08/26/18 08/27/18 11:37 23:54 04:35 WBC RBC 2.50 L Hgb 7.6 L Hct 22.3 L RDW 21.8 H Plt Count Lymph % (Auto) 7.3 L [place] % (Auto) Lymph # 0.7 L [place] # Seg Neutrophils % 85.6 H Seg Neuts % (Manual) Lymphocytes % (Manual) Nucleated RBC % Seg Neutrophils # 8.6 H Seg Neutrophils # Man Lymphocytes # (Manual) D-Dimer POC ABG pH POC ABG pCO2 POC ABG pO2 VBG pH Sodium Potassium Chloride Carbon Dioxide BUN Creatinine Glucose POC Glucose 183 H 150 H Hemoglobin A1c Lactic Acid Calcium Phosphorus Magnesium Iron TIBC AST ALT Troponin T C-Reactive Protein Total Protein Albumin Triglycerides LDL Cholesterol Direct HDL Cholesterol Urine pH Urine WBC (Auto) Vancomycin Trough Salicylates Acetaminophen % CD3 Cells % CD19 Cells Absolute CD19 Count Miscellaneous Test Crossmatch 08/27/18 08/27/18 08/28/18 04:35 12:17 04:43 WBC RBC Hgb Hct RDW Plt Count Lymph % (Auto) [place] % (Auto) Lymph # [place] # Seg Neutrophils % Seg Neuts % (Manual) Lymphocytes % (Manual) Nucleated RBC % Seg Neutrophils # Seg Neutrophils # Man Lymphocytes # (Manual) D-Dimer POC ABG pH POC ABG pCO2 32.1 L 33.8 L POC ABG pO2 68 L 78 L VBG pH Sodium Potassium Chloride Carbon Dioxide 19 L BUN 67 H Creatinine 2.9 H Glucose 155 H POC Glucose Hemoglobin A1c Lactic Acid Calcium Phosphorus 4.70 H Magnesium Iron TIBC AST ALT Troponin T C-Reactive Protein Total Protein Albumin Triglycerides LDL Cholesterol Direct HDL Cholesterol Urine pH Urine WBC (Auto) Vancomycin Trough Salicylates Acetaminophen % CD3 Cells % CD19 Cells Absolute CD19 Count Miscellaneous Test Crossmatch 08/28/18 08/28/18 08/28/18 05:03 05:20 05:20 WBC RBC 2.43 L Hgb 7.4 L Hct 21.8 L RDW 20.8 H Plt Count Lymph % (Auto) 7.6 L [place] % (Auto) 8.7 H Lymph # 0.7 L [place] # Seg Neutrophils % 82.9 H Seg Neuts % (Manual) Lymphocytes % (Manual) Nucleated RBC % Seg Neutrophils # Seg Neutrophils # Man Lymphocytes # (Manual) D-Dimer POC ABG pH POC ABG pCO2 POC ABG pO2 VBG pH Sodium Potassium Chloride 107.8 H Carbon Dioxide 21 L BUN 55 H Creatinine 2.0 H Glucose 177 H POC Glucose 160 H Hemoglobin A1c Lactic Acid Calcium Phosphorus Magnesium Iron TIBC AST ALT Troponin T C-Reactive Protein Total Protein Albumin Triglycerides LDL Cholesterol Direct HDL Cholesterol Urine pH Urine WBC (Auto) Vancomycin Trough Salicylates Acetaminophen % CD3 Cells % CD19 Cells Absolute CD19 Count Miscellaneous Test Crossmatch 08/28/18 08/28/18 08/28/18 12:18 18:58 22:31 WBC RBC Hgb Hct RDW Plt Count Lymph % (Auto) [place] % (Auto) Lymph # [place] # Seg Neutrophils % Seg Neuts % (Manual) Lymphocytes % (Manual) Nucleated RBC % Seg Neutrophils # Seg Neutrophils # Man Lymphocytes # (Manual) D-Dimer POC ABG pH POC ABG pCO2 34.4 L POC ABG pO2 67 L VBG pH Sodium Potassium Chloride Carbon Dioxide BUN Creatinine Glucose POC Glucose 164 H 149 H Hemoglobin A1c Lactic Acid Calcium Phosphorus Magnesium Iron TIBC AST ALT Troponin T C-Reactive Protein Total Protein Albumin Triglycerides LDL Cholesterol Direct HDL Cholesterol Urine pH Urine WBC (Auto) Vancomycin Trough Salicylates Acetaminophen % CD3 Cells % CD19 Cells Absolute CD19 Count Miscellaneous Test Crossmatch 08/28/18 08/29/18 08/29/18 23:33 05:25 05:25 WBC RBC 2.30 L Hgb 7.0 L Hct 20.9 L RDW 21.0 H Plt Count Lymph % (Auto) 11.5 L [place] % (Auto) 9.2 H Lymph # 0.8 L [place] # Seg Neutrophils % 78.8 H Seg Neuts % (Manual) Lymphocytes % (Manual) Nucleated RBC % Seg Neutrophils # Seg Neutrophils # Man Lymphocytes # (Manual) D-Dimer POC ABG pH POC ABG pCO2 POC ABG pO2 VBG pH Sodium Potassium Chloride 111.1 H Carbon Dioxide BUN 55 H Creatinine 1.8 H Glucose 162 H POC Glucose 143 H Hemoglobin A1c Lactic Acid Calcium Phosphorus Magnesium Iron TIBC AST 46 H ALT < 5 L Troponin T C-Reactive Protein Total Protein 5.7 L Albumin 2.1 L Triglycerides LDL Cholesterol Direct HDL Cholesterol Urine pH Urine WBC (Auto) Vancomycin Trough Salicylates Acetaminophen % CD3 Cells % CD19 Cells Absolute CD19 Count Miscellaneous Test Crossmatch 08/29/18 08/29/18 08/30/18 18:19 23:35 05:03 WBC RBC Hgb Hct RDW Plt Count Lymph % (Auto) [place] % (Auto) Lymph # [place] # Seg Neutrophils % Seg Neuts % (Manual) Lymphocytes % (Manual) Nucleated RBC % Seg Neutrophils # Seg Neutrophils # Man Lymphocytes # (Manual) D-Dimer POC ABG pH POC ABG pCO2 POC ABG pO2 VBG pH Sodium Potassium Chloride Carbon Dioxide BUN Creatinine Glucose POC Glucose 155 H 139 H 122 H Hemoglobin A1c Lactic Acid Calcium Phosphorus Magnesium Iron TIBC AST ALT Troponin T C-Reactive Protein Total Protein Albumin Triglycerides LDL Cholesterol Direct HDL Cholesterol Urine pH Urine WBC (Auto) Vancomycin Trough Salicylates Acetaminophen % CD3 Cells % CD19 Cells Absolute CD19 Count Miscellaneous Test Crossmatch 08/30/18 08/30/18 08/30/18 09:33 09:33 09:54 WBC RBC 2.58 L Hgb 7.9 L Hct 23.5 L RDW 20.9 H Plt Count Lymph % (Auto) 8.0 L [place] % (Auto) 9.7 H Lymph # 0.8 L [place] # 1.0 H Seg Neutrophils % 82.1 H Seg Neuts % (Manual) Lymphocytes % (Manual) Nucleated RBC % Seg Neutrophils # 8.2 H Seg Neutrophils # Man Lymphocytes # (Manual) D-Dimer POC ABG pH POC ABG pCO2 POC ABG pO2 VBG pH Sodium 146 H Potassium Chloride 110.7 H Carbon Dioxide BUN 56 H Creatinine 1.9 H Glucose 145 H POC Glucose Hemoglobin A1c Lactic Acid Calcium Phosphorus 4.60 H Magnesium Iron TIBC AST ALT < 5 L Troponin T C-Reactive Protein Total Protein Albumin 2.7 L Triglycerides LDL Cholesterol Direct HDL Cholesterol Urine pH Urine WBC (Auto) Vancomycin Trough Salicylates Acetaminophen % CD3 Cells % CD19 Cells Absolute CD19 Count Miscellaneous Test Flexitest 1 H Crossmatch 08/30/18 08/30/18 08/30/18 09:57 11:26 18:08 WBC RBC Hgb Hct RDW Plt Count Lymph % (Auto) [place] % (Auto) Lymph # [place] # Seg Neutrophils % Seg Neuts % (Manual) Lymphocytes % (Manual) Nucleated RBC % Seg Neutrophils # Seg Neutrophils # Man Lymphocytes # (Manual) D-Dimer POC ABG pH POC ABG pCO2 POC ABG pO2 VBG pH Sodium Potassium Chloride Carbon Dioxide BUN Creatinine Glucose POC Glucose 149 H 156 H Hemoglobin A1c Lactic Acid Calcium Phosphorus Magnesium Iron TIBC AST ALT Troponin T C-Reactive Protein Total Protein Albumin Triglycerides LDL Cholesterol Direct HDL Cholesterol Urine pH Urine WBC (Auto) Vancomycin Trough Salicylates Acetaminophen % CD3 Cells % CD19 Cells Absolute CD19 Count Miscellaneous Test Flexitest 1 H Crossmatch 08/30/18 08/31/18 08/31/18 23:14 05:16 08:40 WBC RBC Hgb Hct RDW Plt Count Lymph % (Auto) [place] % (Auto) Lymph # [place] # Seg Neutrophils % Seg Neuts % (Manual) Lymphocytes % (Manual) Nucleated RBC % Seg Neutrophils # Seg Neutrophils # Man Lymphocytes # (Manual) D-Dimer POC ABG pH POC ABG pCO2 POC ABG pO2 VBG pH Sodium 151 H Potassium Chloride 113.8 H Carbon Dioxide BUN 45 H Creatinine Glucose 144 H POC Glucose 117 H 133 H Hemoglobin A1c Lactic Acid Calcium Phosphorus Magnesium Iron TIBC AST ALT Troponin T C-Reactive Protein Total Protein Albumin Triglycerides LDL Cholesterol Direct HDL Cholesterol Urine pH Urine WBC (Auto) Vancomycin Trough Salicylates Acetaminophen % CD3 Cells % CD19 Cells Absolute CD19 Count Miscellaneous Test Crossmatch 08/31/18 09/01/18 09/01/18 23:46 04:45 04:45 WBC RBC 2.38 L Hgb 7.3 L Hct 22.1 L RDW 21.1 H Plt Count Lymph % (Auto) [place] % (Auto) Lymph # [place] # Seg Neutrophils % Seg Neuts % (Manual) 93.0 H Lymphocytes % (Manual) 4.0 L Nucleated RBC % Seg Neutrophils # Seg Neutrophils # Man 10.1 H Lymphocytes # (Manual) 0.4 L D-Dimer POC ABG pH POC ABG pCO2 POC ABG pO2 VBG pH Sodium 156 H Potassium 3.1 L Chloride 115.2 H Carbon Dioxide BUN 34 H Creatinine Glucose 125 H POC Glucose 124 H Hemoglobin A1c Lactic Acid Calcium Phosphorus Magnesium Iron TIBC AST ALT Troponin T C-Reactive Protein Total Protein Albumin Triglycerides LDL Cholesterol Direct HDL Cholesterol Urine pH Urine WBC (Auto) Vancomycin Trough Salicylates Acetaminophen % CD3 Cells % CD19 Cells Absolute CD19 Count Miscellaneous Test Crossmatch 09/01/18 09/01/18 09/01/18 05:34 11:20 17:52 WBC RBC Hgb Hct RDW Plt Count Lymph % (Auto) [place] % (Auto) Lymph # [place] # Seg Neutrophils % Seg Neuts % (Manual) Lymphocytes % (Manual) Nucleated RBC % Seg Neutrophils # Seg Neutrophils # Man Lymphocytes # (Manual) D-Dimer POC ABG pH 7.553 H POC ABG pCO2 POC ABG pO2 74 L VBG pH Sodium Potassium Chloride Carbon Dioxide BUN Creatinine Glucose POC Glucose 128 H 146 H Hemoglobin A1c Lactic Acid Calcium Phosphorus Magnesium Iron TIBC AST ALT Troponin T C-Reactive Protein Total Protein Albumin Triglycerides LDL Cholesterol Direct HDL Cholesterol Urine pH Urine WBC (Auto) Vancomycin Trough Salicylates Acetaminophen % CD3 Cells % CD19 Cells Absolute CD19 Count Miscellaneous Test Crossmatch 09/01/18 09/02/18 09/02/18 17:52 04:13 04:58 WBC 16.4 H RBC 2.64 L Hgb 7.9 L Hct 24.3 L RDW 20.8 H Plt Count Lymph % (Auto) [place] % (Auto) Lymph # [place] # Seg Neutrophils % Seg Neuts % (Manual) 96.0 H Lymphocytes % (Manual) 1.0 L Nucleated RBC % Seg Neutrophils # Seg Neutrophils # Man 15.7 H Lymphocytes # (Manual) 0.2 L D-Dimer POC ABG pH 7.488 H POC ABG pCO2 POC ABG pO2 63 L VBG pH Sodium Potassium Chloride Carbon Dioxide BUN Creatinine Glucose POC Glucose 143 H Hemoglobin A1c Lactic Acid Calcium Phosphorus Magnesium Iron TIBC AST ALT Troponin T C-Reactive Protein Total Protein Albumin Triglycerides LDL Cholesterol Direct HDL Cholesterol Urine pH Urine WBC (Auto) Vancomycin Trough Salicylates Acetaminophen % CD3 Cells % CD19 Cells Absolute CD19 Count Miscellaneous Test Crossmatch 09/02/18 09/02/18 09/02/18 04:58 11:03 18:18 WBC RBC Hgb Hct RDW Plt Count Lymph % (Auto) [place] % (Auto) Lymph # [place] # Seg Neutrophils % Seg Neuts % (Manual) Lymphocytes % (Manual) Nucleated RBC % Seg Neutrophils # Seg Neutrophils # Man Lymphocytes # (Manual) D-Dimer POC ABG pH 7.344 L POC ABG pCO2 52.8 H POC ABG pO2 VBG pH Sodium 158 H Potassium 2.9 L* Chloride 115.7 H Carbon Dioxide BUN 27 H Creatinine 0.6 L Glucose 128 H POC Glucose 121 H Hemoglobin A1c Lactic Acid Calcium Phosphorus Magnesium 1.60 L Iron TIBC AST 64 H ALT Troponin T C-Reactive Protein Total Protein Albumin 2.6 L Triglycerides LDL Cholesterol Direct HDL Cholesterol Urine pH Urine WBC (Auto) Vancomycin Trough Salicylates Acetaminophen % CD3 Cells % CD19 Cells Absolute CD19 Count Miscellaneous Test Crossmatch 09/02/18 09/03/18 09/03/18 23:06 03:36 04:25 WBC RBC 2.20 L Hgb 6.7 L Hct 20.9 L RDW 21.1 H Plt Count Lymph % (Auto) [place] % (Auto) Lymph # [place] # Seg Neutrophils % Seg Neuts % (Manual) 90.0 H Lymphocytes % (Manual) 5.0 L Nucleated RBC % Seg Neutrophils # Seg Neutrophils # Man 8.7 H Lymphocytes # (Manual) 0.5 L D-Dimer POC ABG pH POC ABG pCO2 POC ABG pO2 54 L VBG pH Sodium Potassium Chloride Carbon Dioxide BUN Creatinine Glucose POC Glucose 121 H Hemoglobin A1c Lactic Acid Calcium Phosphorus Magnesium Iron TIBC AST ALT Troponin T C-Reactive Protein Total Protein Albumin Triglycerides LDL Cholesterol Direct HDL Cholesterol Urine pH Urine WBC (Auto) Vancomycin Trough Salicylates Acetaminophen % CD3 Cells % CD19 Cells Absolute CD19 Count Miscellaneous Test Crossmatch 09/03/18 09/03/18 09/03/18 04:25 05:45 10:24 WBC RBC Hgb Hct RDW Plt Count Lymph % (Auto) [place] % (Auto) Lymph # [place] # Seg Neutrophils % Seg Neuts % (Manual) Lymphocytes % (Manual) Nucleated RBC % Seg Neutrophils # Seg Neutrophils # Man Lymphocytes # (Manual) D-Dimer POC ABG pH POC ABG pCO2 POC ABG pO2 VBG pH Sodium 158 H Potassium 3.1 L Chloride 120.4 H Carbon Dioxide BUN 25 H Creatinine 0.6 L Glucose 127 H POC Glucose 178 H Hemoglobin A1c Lactic Acid Calcium 7.9 L Phosphorus Magnesium Iron TIBC AST ALT Troponin T C-Reactive Protein Total Protein 6.0 L Albumin 2.4 L Triglycerides LDL Cholesterol Direct HDL Cholesterol Urine pH Urine WBC (Auto) Vancomycin Trough Salicylates Acetaminophen % CD3 Cells % CD19 Cells Absolute CD19 Count Miscellaneous Test Crossmatch See Detail 09/03/18 09/03/18 09/04/18 11:27 23:09 04:42 WBC RBC Hgb Hct RDW Plt Count Lymph % (Auto) [place] % (Auto) Lymph # [place] # Seg Neutrophils % Seg Neuts % (Manual) Lymphocytes % (Manual) Nucleated RBC % Seg Neutrophils # Seg Neutrophils # Man Lymphocytes # (Manual) D-Dimer POC ABG pH 7.293 L POC ABG pCO2 50.2 H POC ABG pO2 VBG pH Sodium Potassium Chloride Carbon Dioxide BUN Creatinine Glucose POC Glucose 107 H 139 H Hemoglobin A1c Lactic Acid Calcium Phosphorus Magnesium Iron TIBC AST ALT Troponin T C-Reactive Protein Total Protein Albumin Triglycerides LDL Cholesterol Direct HDL Cholesterol Urine pH Urine WBC (Auto) Vancomycin Trough Salicylates Acetaminophen % CD3 Cells % CD19 Cells Absolute CD19 Count Miscellaneous Test Crossmatch 09/04/18 09/04/18 09/04/18 05:00 06:30 06:30 WBC RBC 2.32 L Hgb 7.0 L Hct 21.9 L RDW 20.2 H Plt Count Lymph % (Auto) [place] % (Auto) Lymph # [place] # Seg Neutrophils % 80.1 H Seg Neuts % (Manual) Lymphocytes % (Manual) Nucleated RBC % Seg Neutrophils # 8.2 H Seg Neutrophils # Man Lymphocytes # (Manual) D-Dimer POC ABG pH POC ABG pCO2 POC ABG pO2 VBG pH Sodium 150 H D Potassium Chloride 115.9 H Carbon Dioxide BUN 21 H Creatinine 0.6 L Glucose 125 H POC Glucose 154 H Hemoglobin A1c Lactic Acid Calcium 7.9 L Phosphorus Magnesium 1.50 L Iron TIBC AST ALT Troponin T C-Reactive Protein Total Protein Albumin Triglycerides LDL Cholesterol Direct HDL Cholesterol Urine pH Urine WBC (Auto) Vancomycin Trough Salicylates Acetaminophen % CD3 Cells % CD19 Cells Absolute CD19 Count Miscellaneous Test Crossmatch 09/04/18 09/04/18 09/04/18 11:20 11:51 18:27 WBC RBC Hgb Hct RDW Plt Count Lymph % (Auto) [place] % (Auto) Lymph # [place] # Seg Neutrophils % Seg Neuts % (Manual) Lymphocytes % (Manual) Nucleated RBC % Seg Neutrophils # Seg Neutrophils # Man Lymphocytes # (Manual) D-Dimer POC ABG pH 7.244 L POC ABG pCO2 54.2 H POC ABG pO2 62 L VBG pH Sodium Potassium Chloride Carbon Dioxide BUN Creatinine Glucose POC Glucose 156 H 129 H Hemoglobin A1c Lactic Acid Calcium Phosphorus Magnesium Iron TIBC AST ALT Troponin T C-Reactive Protein Total Protein Albumin Triglycerides LDL Cholesterol Direct HDL Cholesterol Urine pH Urine WBC (Auto) Vancomycin Trough Salicylates Acetaminophen % CD3 Cells % CD19 Cells Absolute CD19 Count Miscellaneous Test Crossmatch 09/05/18 09/05/18 09/05/18 03:46 04:00 04:00 WBC RBC 2.13 L Hgb 6.4 L Hct 20.1 L RDW 19.9 H Plt Count 117 L Lymph % (Auto) [place] % (Auto) Lymph # 0.9 L [place] # Seg Neutrophils % 81.7 H Seg Neuts % (Manual) Lymphocytes % (Manual) Nucleated RBC % Seg Neutrophils # Seg Neutrophils # Man Lymphocytes # (Manual) D-Dimer POC ABG pH 7.282 L POC ABG pCO2 57.3 H POC ABG pO2 124 H VBG pH Sodium Potassium Chloride 111.0 H Carbon Dioxide BUN 20 H Creatinine Glucose 130 H POC Glucose Hemoglobin A1c Lactic Acid Calcium 7.8 L Phosphorus Magnesium 1.60 L Iron TIBC AST ALT Troponin T C-Reactive Protein Total Protein Albumin Triglycerides LDL Cholesterol Direct HDL Cholesterol Urine pH Urine WBC (Auto) Vancomycin Trough Salicylates Acetaminophen % CD3 Cells % CD19 Cells Absolute CD19 Count Miscellaneous Test Crossmatch 09/05/18 09/05/18 09/05/18 12:15 17:24 23:24 WBC RBC Hgb Hct RDW Plt Count Lymph % (Auto) [place] % (Auto) Lymph # [place] # Seg Neutrophils % Seg Neuts % (Manual) Lymphocytes % (Manual) Nucleated RBC % Seg Neutrophils # Seg Neutrophils # Man Lymphocytes # (Manual) D-Dimer POC ABG pH POC ABG pCO2 POC ABG pO2 VBG pH Sodium Potassium Chloride Carbon Dioxide BUN Creatinine Glucose POC Glucose 143 H 116 H 116 H Hemoglobin A1c Lactic Acid Calcium Phosphorus Magnesium Iron TIBC AST ALT Troponin T C-Reactive Protein Total Protein Albumin Triglycerides LDL Cholesterol Direct HDL Cholesterol Urine pH Urine WBC (Auto) Vancomycin Trough Salicylates Acetaminophen % CD3 Cells % CD19 Cells Absolute CD19 Count Miscellaneous Test Crossmatch 09/06/18 09/06/18 09/06/18 03:33 04:20 04:20 WBC RBC 2.45 L Hgb 7.4 L Hct 23.0 L RDW 18.1 H Plt Count 99 L Lymph % (Auto) [place] % (Auto) Lymph # 1.0 L [place] # Seg Neutrophils % 78.0 H Seg Neuts % (Manual) Lymphocytes % (Manual) Nucleated RBC % Seg Neutrophils # Seg Neutrophils # Man Lymphocytes # (Manual) D-Dimer POC ABG pH 7.303 L POC ABG pCO2 49.2 H POC ABG pO2 73 L VBG pH Sodium Potassium Chloride 109.3 H Carbon Dioxide BUN 24 H Creatinine Glucose 108 H POC Glucose Hemoglobin A1c Lactic Acid Calcium 8.1 L Phosphorus Magnesium Iron TIBC AST ALT Troponin T C-Reactive Protein Total Protein Albumin Triglycerides LDL Cholesterol Direct HDL Cholesterol Urine pH Urine WBC (Auto) Vancomycin Trough Salicylates Acetaminophen % CD3 Cells % CD19 Cells Absolute CD19 Count Miscellaneous Test Crossmatch 09/06/18 09/06/18 09/06/18 04:55 11:29 14:40 WBC RBC Hgb Hct RDW Plt Count Lymph % (Auto) [place] % (Auto) Lymph # [place] # Seg Neutrophils % Seg Neuts % (Manual) Lymphocytes % (Manual) Nucleated RBC % Seg Neutrophils # Seg Neutrophils # Man Lymphocytes # (Manual) D-Dimer POC ABG pH POC ABG pCO2 POC ABG pO2 VBG pH Sodium Potassium Chloride Carbon Dioxide BUN Creatinine Glucose POC Glucose 124 H 149 H Hemoglobin A1c Lactic Acid Calcium Phosphorus Magnesium Iron TIBC AST ALT Troponin T C-Reactive Protein Total Protein Albumin Triglycerides LDL Cholesterol Direct HDL Cholesterol Urine pH Urine WBC (Auto) Vancomycin Trough 28.6 H Salicylates Acetaminophen % CD3 Cells % CD19 Cells Absolute CD19 Count Miscellaneous Test Crossmatch 09/06/18 09/06/18 09/07/18 17:43 20:08 00:39 WBC RBC Hgb Hct RDW Plt Count Lymph % (Auto) [place] % (Auto) Lymph # [place] # Seg Neutrophils % Seg Neuts % (Manual) Lymphocytes % (Manual) Nucleated RBC % Seg Neutrophils # Seg Neutrophils # Man Lymphocytes # (Manual) D-Dimer POC ABG pH POC ABG pCO2 POC ABG pO2 VBG pH Sodium Potassium Chloride Carbon Dioxide BUN Creatinine Glucose POC Glucose 138 H 118 H 131 H Hemoglobin A1c Lactic Acid Calcium Phosphorus Magnesium Iron TIBC AST ALT Troponin T C-Reactive Protein Total Protein Albumin Triglycerides LDL Cholesterol Direct HDL Cholesterol Urine pH Urine WBC (Auto) Vancomycin Trough Salicylates Acetaminophen % CD3 Cells % CD19 Cells Absolute CD19 Count Miscellaneous Test Crossmatch 09/07/18 09/07/18 09/07/18 05:40 05:40 12:03 WBC RBC 2.40 L Hgb 7.3 L Hct 22.5 L RDW 17.8 H Plt Count 92 L Lymph % (Auto) [place] % (Auto) Lymph # [place] # Seg Neutrophils % Seg Neuts % (Manual) 80.0 H Lymphocytes % (Manual) Nucleated RBC % 1.0 H Seg Neutrophils # Seg Neutrophils # Man Lymphocytes # (Manual) 0.8 L D-Dimer POC ABG pH POC ABG pCO2 POC ABG pO2 VBG pH Sodium Potassium Chloride 109.8 H Carbon Dioxide BUN 26 H Creatinine Glucose 118 H POC Glucose 145 H Hemoglobin A1c Lactic Acid Calcium 8.0 L Phosphorus Magnesium Iron 26 L TIBC 150 L AST 88 H ALT Troponin T C-Reactive Protein Total Protein 5.8 L Albumin 2.1 L Triglycerides LDL Cholesterol Direct HDL Cholesterol Urine pH Urine WBC (Auto) Vancomycin Trough Salicylates Acetaminophen % CD3 Cells % CD19 Cells Absolute CD19 Count Miscellaneous Test Crossmatch 09/07/18 09/07/18 09/08/18 17:39 23:21 05:48 WBC RBC Hgb Hct RDW Plt Count Lymph % (Auto) [place] % (Auto) Lymph # [place] # Seg Neutrophils % Seg Neuts % (Manual) Lymphocytes % (Manual) Nucleated RBC % Seg Neutrophils # Seg Neutrophils # Man Lymphocytes # (Manual) D-Dimer POC ABG pH POC ABG pCO2 POC ABG pO2 VBG pH Sodium Potassium Chloride Carbon Dioxide BUN Creatinine Glucose POC Glucose 128 H 136 H 129 H Hemoglobin A1c Lactic Acid Calcium Phosphorus Magnesium Iron TIBC AST ALT Troponin T C-Reactive Protein Total Protein Albumin Triglycerides LDL Cholesterol Direct HDL Cholesterol Urine pH Urine WBC (Auto) Vancomycin Trough Salicylates Acetaminophen % CD3 Cells % CD19 Cells Absolute CD19 Count Miscellaneous Test Crossmatch 09/08/18 09/08/18 09/08/18 06:17 10:06 10:42 WBC RBC Hgb Hct RDW Plt Count Lymph % (Auto) [place] % (Auto) Lymph # [place] # Seg Neutrophils % Seg Neuts % (Manual) Lymphocytes % (Manual) Nucleated RBC % Seg Neutrophils # Seg Neutrophils # Man Lymphocytes # (Manual) D-Dimer POC ABG pH 7.292 L 7.276 L POC ABG pCO2 56.9 H 65.1 H POC ABG pO2 VBG pH Sodium 146 H Potassium Chloride 109.1 H Carbon Dioxide BUN 28 H Creatinine Glucose 165 H POC Glucose Hemoglobin A1c Lactic Acid Calcium Phosphorus Magnesium Iron TIBC AST ALT Troponin T C-Reactive Protein Total Protein Albumin Triglycerides LDL Cholesterol Direct HDL Cholesterol Urine pH Urine WBC (Auto) Vancomycin Trough Salicylates Acetaminophen % CD3 Cells % CD19 Cells Absolute CD19 Count Miscellaneous Test Crossmatch 09/08/18 09/08/18 09/08/18 11:06 18:07 23:20 WBC RBC Hgb Hct RDW Plt Count Lymph % (Auto) [place] % (Auto) Lymph # [place] # Seg Neutrophils % Seg Neuts % (Manual) Lymphocytes % (Manual) Nucleated RBC % Seg Neutrophils # Seg Neutrophils # Man Lymphocytes # (Manual) D-Dimer POC ABG pH POC ABG pCO2 POC ABG pO2 VBG pH Sodium Potassium Chloride Carbon Dioxide BUN Creatinine Glucose POC Glucose 165 H 140 H 124 H Hemoglobin A1c Lactic Acid Calcium Phosphorus Magnesium Iron TIBC AST ALT Troponin T C-Reactive Protein Total Protein Albumin Triglycerides LDL Cholesterol Direct HDL Cholesterol Urine pH Urine WBC (Auto) Vancomycin Trough Salicylates Acetaminophen % CD3 Cells % CD19 Cells Absolute CD19 Count Miscellaneous Test Crossmatch 09/09/18 09/09/18 09/09/18 05:04 08:39 08:39 WBC RBC 2.60 L Hgb 8.1 L Hct 24.6 L RDW 17.9 H Plt Count Lymph % (Auto) [place] % (Auto) Lymph # [place] # Seg Neutrophils % Seg Neuts % (Manual) Lymphocytes % (Manual) Nucleated RBC % Seg Neutrophils # Seg Neutrophils # Man Lymphocytes # (Manual) D-Dimer POC ABG pH POC ABG pCO2 POC ABG pO2 VBG pH Sodium Potassium Chloride Carbon Dioxide BUN 32 H Creatinine Glucose 150 H POC Glucose 168 H Hemoglobin A1c Lactic Acid Calcium Phosphorus Magnesium Iron TIBC AST ALT Troponin T C-Reactive Protein Total Protein Albumin Triglycerides LDL Cholesterol Direct HDL Cholesterol Urine pH Urine WBC (Auto) Vancomycin Trough Salicylates Acetaminophen % CD3 Cells % CD19 Cells Absolute CD19 Count Miscellaneous Test Crossmatch 09/09/18 09/10/18 09/10/18 12:41 04:20 04:20 WBC RBC 2.49 L Hgb 7.7 L Hct 23.4 L RDW 18.0 H Plt Count Lymph % (Auto) 8.2 L [place] % (Auto) Lymph # 0.7 L [place] # Seg Neutrophils % 87.7 H Seg Neuts % (Manual) Lymphocytes % (Manual) Nucleated RBC % Seg Neutrophils # Seg Neutrophils # Man Lymphocytes # (Manual) D-Dimer POC ABG pH POC ABG pCO2 POC ABG pO2 VBG pH Sodium Potassium Chloride Carbon Dioxide 31 H BUN 39 H Creatinine Glucose 183 H POC Glucose 150 H Hemoglobin A1c Lactic Acid Calcium Phosphorus Magnesium Iron TIBC AST 85 H ALT 58 H Troponin T C-Reactive Protein Total Protein Albumin 2.5 L Triglycerides LDL Cholesterol Direct HDL Cholesterol Urine pH Urine WBC (Auto) Vancomycin Trough Salicylates Acetaminophen % CD3 Cells % CD19 Cells Absolute CD19 Count Miscellaneous Test Crossmatch 09/10/18 09/10/18 09/10/18 04:39 05:06 11:17 WBC RBC Hgb Hct RDW Plt Count Lymph % (Auto) [place] % (Auto) Lymph # [place] # Seg Neutrophils % Seg Neuts % (Manual) Lymphocytes % (Manual) Nucleated RBC % Seg Neutrophils # Seg Neutrophils # Man Lymphocytes # (Manual) D-Dimer POC ABG pH POC ABG pCO2 51.4 H POC ABG pO2 VBG pH Sodium Potassium Chloride Carbon Dioxide BUN Creatinine Glucose POC Glucose 185 H 159 H Hemoglobin A1c Lactic Acid Calcium Phosphorus Magnesium Iron TIBC AST ALT Troponin T C-Reactive Protein Total Protein Albumin Triglycerides LDL Cholesterol Direct HDL Cholesterol Urine pH Urine WBC (Auto) Vancomycin Trough Salicylates Acetaminophen % CD3 Cells % CD19 Cells Absolute CD19 Count Miscellaneous Test Crossmatch 09/10/18 09/11/18 09/11/18 16:57 00:17 01:10 WBC RBC Hgb Hct RDW Plt Count Lymph % (Auto) [place] % (Auto) Lymph # [place] # Seg Neutrophils % Seg Neuts % (Manual) Lymphocytes % (Manual) Nucleated RBC % Seg Neutrophils # Seg Neutrophils # Man Lymphocytes # (Manual) D-Dimer POC ABG pH POC ABG pCO2 POC ABG pO2 VBG pH Sodium Potassium Chloride Carbon Dioxide 34 H BUN 44 H Creatinine Glucose 154 H POC Glucose 177 H 163 H Hemoglobin A1c Lactic Acid Calcium Phosphorus Magnesium Iron TIBC AST 86 H ALT 68 H Troponin T C-Reactive Protein Total Protein Albumin 2.6 L Triglycerides LDL Cholesterol Direct HDL Cholesterol Urine pH Urine WBC (Auto) Vancomycin Trough Salicylates Acetaminophen % CD3 Cells % CD19 Cells Absolute CD19 Count Miscellaneous Test Crossmatch 09/11/18 09/11/18 09/11/18 01:10 06:03 09:00 WBC 13.7 H RBC 2.61 L Hgb 8.0 L Hct 24.6 L RDW 19.1 H Plt Count Lymph % (Auto) 6.1 L [place] % (Auto) Lymph # 0.8 L [place] # Seg Neutrophils % 87.7 H Seg Neuts % (Manual) Lymphocytes % (Manual) Nucleated RBC % Seg Neutrophils # 12.0 H Seg Neutrophils # Man Lymphocytes # (Manual) D-Dimer POC ABG pH POC ABG pCO2 POC ABG pO2 VBG pH Sodium Potassium Chloride Carbon Dioxide 33 H BUN 45 H Creatinine Glucose 147 H POC Glucose 180 H Hemoglobin A1c Lactic Acid Calcium Phosphorus Magnesium Iron TIBC AST ALT Troponin T C-Reactive Protein Total Protein Albumin Triglycerides LDL Cholesterol Direct HDL Cholesterol Urine pH Urine WBC (Auto) Vancomycin Trough Salicylates Acetaminophen % CD3 Cells % CD19 Cells Absolute CD19 Count Miscellaneous Test Crossmatch 09/11/18 09/11/18 09/11/18 11:14 11:31 17:11 WBC RBC Hgb Hct RDW Plt Count Lymph % (Auto) [place] % (Auto) Lymph # [place] # Seg Neutrophils % Seg Neuts % (Manual) Lymphocytes % (Manual) Nucleated RBC % Seg Neutrophils # Seg Neutrophils # Man Lymphocytes # (Manual) D-Dimer POC ABG pH 7.498 H POC ABG pCO2 46.3 H POC ABG pO2 VBG pH Sodium Potassium Chloride Carbon Dioxide BUN Creatinine Glucose POC Glucose 163 H 202 H Hemoglobin A1c Lactic Acid Calcium Phosphorus Magnesium Iron TIBC AST ALT Troponin T C-Reactive Protein Total Protein Albumin Triglycerides LDL Cholesterol Direct HDL Cholesterol Urine pH Urine WBC (Auto) Vancomycin Trough Salicylates Acetaminophen % CD3 Cells % CD19 Cells Absolute CD19 Count Miscellaneous Test Crossmatch 09/11/18 09/12/18 09/12/18 23:49 03:16 05:30 WBC RBC 2.36 L Hgb 7.3 L Hct 22.3 L RDW 18.4 H Plt Count Lymph % (Auto) 13.0 L [place] % (Auto) 9.3 H Lymph # 1.1 L [place] # Seg Neutrophils % 77.5 H Seg Neuts % (Manual) Lymphocytes % (Manual) Nucleated RBC % Seg Neutrophils # Seg Neutrophils # Man Lymphocytes # (Manual) D-Dimer POC ABG pH 7.517 H POC ABG pCO2 48.8 H POC ABG pO2 VBG pH Sodium Potassium Chloride Carbon Dioxide BUN Creatinine Glucose POC Glucose 163 H Hemoglobin A1c Lactic Acid Calcium Phosphorus Magnesium Iron TIBC AST ALT Troponin T C-Reactive Protein Total Protein Albumin Triglycerides LDL Cholesterol Direct HDL Cholesterol Urine pH Urine WBC (Auto) Vancomycin Trough Salicylates Acetaminophen % CD3 Cells % CD19 Cells Absolute CD19 Count Miscellaneous Test Crossmatch 09/12/18 09/12/18 09/12/18 05:30 06:07 11:36 WBC RBC Hgb Hct RDW Plt Count Lymph % (Auto) [place] % (Auto) Lymph # [place] # Seg Neutrophils % Seg Neuts % (Manual) Lymphocytes % (Manual) Nucleated RBC % Seg Neutrophils # Seg Neutrophils # Man Lymphocytes # (Manual) D-Dimer POC ABG pH POC ABG pCO2 POC ABG pO2 VBG pH Sodium 148 H Potassium Chloride Carbon Dioxide 36 H BUN 46 H Creatinine Glucose 152 H POC Glucose 172 H 212 H Hemoglobin A1c Lactic Acid Calcium Phosphorus Magnesium Iron TIBC AST ALT Troponin T C-Reactive Protein Total Protein Albumin Triglycerides LDL Cholesterol Direct HDL Cholesterol Urine pH Urine WBC (Auto) Vancomycin Trough Salicylates Acetaminophen % CD3 Cells % CD19 Cells Absolute CD19 Count Miscellaneous Test Crossmatch 09/12/18 09/12/18 09/13/18 18:02 23:19 03:55 WBC RBC Hgb Hct RDW Plt Count Lymph % (Auto) [place] % (Auto) Lymph # [place] # Seg Neutrophils % Seg Neuts % (Manual) Lymphocytes % (Manual) Nucleated RBC % Seg Neutrophils # Seg Neutrophils # Man Lymphocytes # (Manual) D-Dimer POC ABG pH 7.520 H POC ABG pCO2 48.0 H POC ABG pO2 58 L VBG pH Sodium Potassium Chloride Carbon Dioxide BUN Creatinine Glucose POC Glucose 142 H 161 H Hemoglobin A1c Lactic Acid Calcium Phosphorus Magnesium Iron TIBC AST ALT Troponin T C-Reactive Protein Total Protein Albumin Triglycerides LDL Cholesterol Direct HDL Cholesterol Urine pH Urine WBC (Auto) Vancomycin Trough Salicylates Acetaminophen % CD3 Cells % CD19 Cells Absolute CD19 Count Miscellaneous Test Crossmatch 09/13/18 09/13/18 09/13/18 05:11 05:25 05:25 WBC RBC 2.38 L Hgb 7.6 L Hct 22.4 L RDW 18.6 H Plt Count Lymph % (Auto) [place] % (Auto) Lymph # [place] # Seg Neutrophils % Seg Neuts % (Manual) Lymphocytes % (Manual) Nucleated RBC % Seg Neutrophils # Seg Neutrophils # Man Lymphocytes # (Manual) D-Dimer POC ABG pH POC ABG pCO2 POC ABG pO2 VBG pH Sodium Potassium 3.2 L Chloride 97.5 L Carbon Dioxide 38 H BUN 38 H Creatinine 0.6 L Glucose 120 H POC Glucose 139 H Hemoglobin A1c Lactic Acid Calcium 8.1 L Phosphorus Magnesium Iron TIBC AST 120 H ALT 124 H Troponin T C-Reactive Protein Total Protein 5.9 L Albumin 2.6 L Triglycerides LDL Cholesterol Direct HDL Cholesterol Urine pH Urine WBC (Auto) Vancomycin Trough Salicylates Acetaminophen % CD3 Cells % CD19 Cells Absolute CD19 Count Miscellaneous Test Crossmatch 09/13/18 09/13/18 09/13/18 11:31 17:46 23:23 WBC RBC Hgb Hct RDW Plt Count Lymph % (Auto) [place] % (Auto) Lymph # [place] # Seg Neutrophils % Seg Neuts % (Manual) Lymphocytes % (Manual) Nucleated RBC % Seg Neutrophils # Seg Neutrophils # Man Lymphocytes # (Manual) D-Dimer POC ABG pH POC ABG pCO2 POC ABG pO2 VBG pH Sodium Potassium Chloride Carbon Dioxide BUN Creatinine Glucose POC Glucose 160 H 145 H 135 H Hemoglobin A1c Lactic Acid Calcium Phosphorus Magnesium Iron TIBC AST ALT Troponin T C-Reactive Protein Total Protein Albumin Triglycerides LDL Cholesterol Direct HDL Cholesterol Urine pH Urine WBC (Auto) Vancomycin Trough Salicylates Acetaminophen % CD3 Cells % CD19 Cells Absolute CD19 Count Miscellaneous Test Crossmatch 09/14/18 09/14/18 09/14/18 03:56 04:55 04:55 WBC RBC 2.28 L Hgb 7.1 L Hct 21.4 L RDW 18.2 H Plt Count Lymph % (Auto) [place] % (Auto) Lymph # [place] # Seg Neutrophils % 76.4 H Seg Neuts % (Manual) Lymphocytes % (Manual) Nucleated RBC % Seg Neutrophils # Seg Neutrophils # Man Lymphocytes # (Manual) D-Dimer POC ABG pH 7.503 H POC ABG pCO2 49.1 H POC ABG pO2 79 L VBG pH Sodium Potassium Chloride 97.7 L Carbon Dioxide 35 H BUN 32 H Creatinine 0.6 L Glucose 114 H POC Glucose Hemoglobin A1c Lactic Acid Calcium Phosphorus Magnesium Iron TIBC AST 60 H ALT 88 H Troponin T C-Reactive Protein Total Protein 5.6 L Albumin 2.2 L Triglycerides LDL Cholesterol Direct HDL Cholesterol Urine pH Urine WBC (Auto) Vancomycin Trough Salicylates Acetaminophen % CD3 Cells % CD19 Cells Absolute CD19 Count Miscellaneous Test Crossmatch 09/14/18 09/14/18 09/14/18 05:14 12:00 12:27 WBC RBC Hgb Hct RDW Plt Count Lymph % (Auto) [place] % (Auto) Lymph # [place] # Seg Neutrophils % Seg Neuts % (Manual) Lymphocytes % (Manual) Nucleated RBC % Seg Neutrophils # Seg Neutrophils # Man Lymphocytes # (Manual) D-Dimer POC ABG pH POC ABG pCO2 POC ABG pO2 VBG pH Sodium Potassium Chloride Carbon Dioxide BUN Creatinine Glucose POC Glucose 115 H 125 H Hemoglobin A1c Lactic Acid Calcium Phosphorus Magnesium Iron TIBC AST ALT Troponin T C-Reactive Protein Total Protein Albumin Triglycerides LDL Cholesterol Direct HDL Cholesterol Urine pH Urine WBC (Auto) Vancomycin Trough Salicylates Acetaminophen % CD3 Cells % CD19 Cells Absolute CD19 Count Miscellaneous Test Crossmatch See Detail 09/14/18 09/15/18 09/15/18 17:54 03:49 04:10 WBC RBC 2.46 L Hgb 7.7 L Hct 23.0 L RDW 18.6 H Plt Count Lymph % (Auto) [place] % (Auto) Lymph # 1.1 L [place] # Seg Neutrophils % 74.2 H Seg Neuts % (Manual) Lymphocytes % (Manual) Nucleated RBC % Seg Neutrophils # Seg Neutrophils # Man Lymphocytes # (Manual) D-Dimer POC ABG pH POC ABG pCO2 58.2 H POC ABG pO2 VBG pH Sodium Potassium Chloride Carbon Dioxide BUN Creatinine Glucose POC Glucose 138 H Hemoglobin A1c Lactic Acid Calcium Phosphorus Magnesium Iron TIBC AST ALT Troponin T C-Reactive Protein Total Protein Albumin Triglycerides LDL Cholesterol Direct HDL Cholesterol Urine pH Urine WBC (Auto) Vancomycin Trough Salicylates Acetaminophen % CD3 Cells % CD19 Cells Absolute CD19 Count Miscellaneous Test Crossmatch 09/15/18 09/15/18 09/15/18 04:10 11:36 11:36 WBC RBC Hgb Hct RDW Plt Count Lymph % (Auto) [place] % (Auto) Lymph # [place] # Seg Neutrophils % Seg Neuts % (Manual) Lymphocytes % (Manual) Nucleated RBC % Seg Neutrophils # Seg Neutrophils # Man Lymphocytes # (Manual) D-Dimer POC ABG pH POC ABG pCO2 53.5 H POC ABG pO2 67 L VBG pH Sodium Potassium Chloride Carbon Dioxide 35 H BUN 21 H Creatinine Glucose POC Glucose 108 H Hemoglobin A1c Lactic Acid Calcium 7.9 L Phosphorus Magnesium Iron TIBC AST ALT Troponin T C-Reactive Protein Total Protein Albumin Triglycerides LDL Cholesterol Direct HDL Cholesterol Urine pH Urine WBC (Auto) Vancomycin Trough Salicylates Acetaminophen % CD3 Cells % CD19 Cells Absolute CD19 Count Miscellaneous Test Crossmatch 09/16/18 09/16/18 09/16/18 01:16 04:25 11:30 WBC RBC 2.77 L Hgb 8.5 L Hct 25.6 L RDW 17.9 H Plt Count Lymph % (Auto) [place] % (Auto) Lymph # [place] # Seg Neutrophils % Seg Neuts % (Manual) Lymphocytes % (Manual) Nucleated RBC % Seg Neutrophils # Seg Neutrophils # Man Lymphocytes # (Manual) D-Dimer POC ABG pH 7.489 H POC ABG pCO2 47.6 H POC ABG pO2 62 L VBG pH Sodium Potassium Chloride Carbon Dioxide BUN Creatinine Glucose POC Glucose 108 H Hemoglobin A1c Lactic Acid Calcium Phosphorus Magnesium Iron TIBC AST ALT Troponin T C-Reactive Protein Total Protein Albumin Triglycerides LDL Cholesterol Direct HDL Cholesterol Urine pH Urine WBC (Auto) Vancomycin Trough Salicylates Acetaminophen % CD3 Cells % CD19 Cells Absolute CD19 Count Miscellaneous Test Crossmatch 09/16/18 09/16/18 09/17/18 11:30 23:07 04:22 WBC RBC Hgb Hct RDW Plt Count Lymph % (Auto) [place] % (Auto) Lymph # [place] # Seg Neutrophils % Seg Neuts % (Manual) Lymphocytes % (Manual) Nucleated RBC % Seg Neutrophils # Seg Neutrophils # Man Lymphocytes # (Manual) D-Dimer POC ABG pH 7.576 H POC ABG pCO2 POC ABG pO2 58 L VBG pH Sodium Potassium 3.2 L Chloride 96.6 L Carbon Dioxide 34 H BUN Creatinine Glucose 128 H POC Glucose 147 H Hemoglobin A1c Lactic Acid Calcium Phosphorus Magnesium Iron TIBC AST ALT Troponin T C-Reactive Protein Total Protein Albumin Triglycerides LDL Cholesterol Direct HDL Cholesterol Urine pH Urine WBC (Auto) Vancomycin Trough Salicylates Acetaminophen % CD3 Cells % CD19 Cells Absolute CD19 Count Miscellaneous Test Crossmatch 09/17/18 09/17/18 09/17/18 05:50 10:15 14:59 WBC RBC Hgb Hct RDW Plt Count Lymph % (Auto) [place] % (Auto) Lymph # [place] # Seg Neutrophils % Seg Neuts % (Manual) Lymphocytes % (Manual) Nucleated RBC % Seg Neutrophils # Seg Neutrophils # Man Lymphocytes # (Manual) D-Dimer POC ABG pH POC ABG pCO2 POC ABG pO2 VBG pH Sodium Potassium 2.6 L* Chloride 96.3 L Carbon Dioxide 33 H BUN Creatinine Glucose 151 H POC Glucose 138 H 151 H Hemoglobin A1c Lactic Acid Calcium Phosphorus Magnesium Iron TIBC AST ALT Troponin T C-Reactive Protein Total Protein Albumin Triglycerides LDL Cholesterol Direct HDL Cholesterol Urine pH Urine WBC (Auto) Vancomycin Trough Salicylates Acetaminophen % CD3 Cells % CD19 Cells Absolute CD19 Count Miscellaneous Test Crossmatch 09/17/18 09/17/18 09/18/18 17:51 Unknown 00:11 WBC RBC Hgb Hct RDW Plt Count Lymph % (Auto) [place] % (Auto) Lymph # [place] # Seg Neutrophils % Seg Neuts % (Manual) Lymphocytes % (Manual) Nucleated RBC % Seg Neutrophils # Seg Neutrophils # Man Lymphocytes # (Manual) D-Dimer POC ABG pH POC ABG pCO2 POC ABG pO2 VBG pH Sodium Potassium 2.7 L* Chloride 97.5 L Carbon Dioxide 32 H BUN Creatinine Glucose 142 H POC Glucose 149 H 128 H Hemoglobin A1c Lactic Acid Calcium Phosphorus Magnesium Iron TIBC AST ALT Troponin T C-Reactive Protein Total Protein Albumin Triglycerides LDL Cholesterol Direct HDL Cholesterol Urine pH Urine WBC (Auto) Vancomycin Trough Salicylates Acetaminophen % CD3 Cells % CD19 Cells Absolute CD19 Count Miscellaneous Test Crossmatch 09/18/18 09/18/18 09/18/18 04:20 04:20 04:28 WBC RBC 2.94 L Hgb 9.0 L Hct 27.2 L RDW 17.7 H Plt Count Lymph % (Auto) [place] % (Auto) 12.1 H Lymph # 1.0 L [place] # Seg Neutrophils % 70.2 H Seg Neuts % (Manual) Lymphocytes % (Manual) Nucleated RBC % Seg Neutrophils # Seg Neutrophils # Man Lymphocytes # (Manual) D-Dimer POC ABG pH 7.563 H POC ABG pCO2 POC ABG pO2 VBG pH Sodium Potassium 3.0 L Chloride Carbon Dioxide 33 H BUN Creatinine Glucose 133 H POC Glucose Hemoglobin A1c Lactic Acid Calcium Phosphorus Magnesium Iron TIBC AST ALT Troponin T C-Reactive Protein Total Protein Albumin Triglycerides LDL Cholesterol Direct HDL Cholesterol Urine pH Urine WBC (Auto) Vancomycin Trough Salicylates Acetaminophen % CD3 Cells % CD19 Cells Absolute CD19 Count Miscellaneous Test Crossmatch 09/18/18 09/18/18 09/19/18 06:19 14:45 00:13 WBC RBC Hgb Hct RDW Plt Count Lymph % (Auto) [place] % (Auto) Lymph # [place] # Seg Neutrophils % Seg Neuts % (Manual) Lymphocytes % (Manual) Nucleated RBC % Seg Neutrophils # Seg Neutrophils # Man Lymphocytes # (Manual) D-Dimer POC ABG pH POC ABG pCO2 POC ABG pO2 VBG pH Sodium Potassium Chloride Carbon Dioxide BUN Creatinine Glucose POC Glucose 140 H 164 H 111 H Hemoglobin A1c Lactic Acid Calcium Phosphorus Magnesium Iron TIBC AST ALT Troponin T C-Reactive Protein Total Protein Albumin Triglycerides LDL Cholesterol Direct HDL Cholesterol Urine pH Urine WBC (Auto) Vancomycin Trough Salicylates Acetaminophen % CD3 Cells % CD19 Cells Absolute CD19 Count Miscellaneous Test Crossmatch 09/19/18 09/19/18 09/19/18 03:38 05:08 05:20 WBC RBC Hgb Hct RDW Plt Count Lymph % (Auto) [place] % (Auto) Lymph # [place] # Seg Neutrophils % Seg Neuts % (Manual) Lymphocytes % (Manual) Nucleated RBC % Seg Neutrophils # Seg Neutrophils # Man Lymphocytes # (Manual) D-Dimer POC ABG pH 7.502 H POC ABG pCO2 34.6 L POC ABG pO2 73 L VBG pH Sodium Potassium 2.7 L* Chloride Carbon Dioxide BUN Creatinine 0.6 L Glucose 119 H POC Glucose 128 H Hemoglobin A1c Lactic Acid Calcium Phosphorus Magnesium Iron TIBC AST ALT Troponin T C-Reactive Protein Total Protein Albumin Triglycerides LDL Cholesterol Direct HDL Cholesterol Urine pH Urine WBC (Auto) Vancomycin Trough Salicylates Acetaminophen % CD3 Cells % CD19 Cells Absolute CD19 Count Miscellaneous Test Crossmatch 09/20/18 09/20/18 09/20/18 04:20 04:20 05:15 WBC RBC 2.89 L Hgb 9.1 L Hct 27.1 L RDW 17.1 H Plt Count Lymph % (Auto) 12.6 L [place] % (Auto) 10.7 H Lymph # 1.1 L [place] # 0.9 H Seg Neutrophils % 76.1 H Seg Neuts % (Manual) Lymphocytes % (Manual) Nucleated RBC % Seg Neutrophils # Seg Neutrophils # Man Lymphocytes # (Manual) D-Dimer POC ABG pH POC ABG pCO2 33.6 L POC ABG pO2 56 L VBG pH Sodium 136 L Potassium 2.9 L* Chloride Carbon Dioxide BUN Creatinine Glucose 116 H POC Glucose Hemoglobin A1c Lactic Acid Calcium Phosphorus Magnesium Iron TIBC AST ALT Troponin T C-Reactive Protein Total Protein Albumin Triglycerides LDL Cholesterol Direct HDL Cholesterol Urine pH Urine WBC (Auto) Vancomycin Trough Salicylates Acetaminophen % CD3 Cells % CD19 Cells Absolute CD19 Count Miscellaneous Test Crossmatch 09/20/18 09/20/18 09/20/18 11:26 16:10 23:50 WBC RBC Hgb Hct RDW Plt Count Lymph % (Auto) [place] % (Auto) Lymph # [place] # Seg Neutrophils % Seg Neuts % (Manual) Lymphocytes % (Manual) Nucleated RBC % Seg Neutrophils # Seg Neutrophils # Man Lymphocytes # (Manual) D-Dimer POC ABG pH POC ABG pCO2 POC ABG pO2 VBG pH Sodium Potassium Chloride Carbon Dioxide BUN Creatinine Glucose POC Glucose 163 H 119 H Hemoglobin A1c Lactic Acid Calcium Phosphorus Magnesium Iron TIBC AST ALT Troponin T C-Reactive Protein Total Protein Albumin Triglycerides LDL Cholesterol Direct HDL Cholesterol Urine pH 9.0 H Urine WBC (Auto) Vancomycin Trough Salicylates Acetaminophen % CD3 Cells % CD19 Cells Absolute CD19 Count Miscellaneous Test Crossmatch 09/21/18 09/21/18 09/21/18 04:35 04:35 11:30 WBC RBC 2.67 L Hgb 8.3 L Hct 25.1 L RDW 17.4 H Plt Count Lymph % (Auto) [place] % (Auto) 10.0 H Lymph # [place] # Seg Neutrophils % Seg Neuts % (Manual) Lymphocytes % (Manual) Nucleated RBC % Seg Neutrophils # Seg Neutrophils # Man Lymphocytes # (Manual) D-Dimer POC ABG pH POC ABG pCO2 POC ABG pO2 VBG pH Sodium Potassium Chloride Carbon Dioxide 21 L BUN 18 H Creatinine Glucose 106 H POC Glucose 110 H Hemoglobin A1c Lactic Acid Calcium Phosphorus Magnesium Iron TIBC AST ALT Troponin T C-Reactive Protein Total Protein Albumin Triglycerides LDL Cholesterol Direct HDL Cholesterol Urine pH Urine WBC (Auto) Vancomycin Trough Salicylates Acetaminophen % CD3 Cells % CD19 Cells Absolute CD19 Count Miscellaneous Test Crossmatch 09/22/18 09/22/18 09/22/18 04:11 12:30 17:54 WBC RBC Hgb Hct RDW Plt Count Lymph % (Auto) [place] % (Auto) Lymph # [place] # Seg Neutrophils % Seg Neuts % (Manual) Lymphocytes % (Manual) Nucleated RBC % Seg Neutrophils # Seg Neutrophils # Man Lymphocytes # (Manual) D-Dimer POC ABG pH POC ABG pCO2 POC ABG pO2 VBG pH Sodium Potassium Chloride Carbon Dioxide BUN 21 H Creatinine 0.6 L Glucose POC Glucose 120 H 122 H Hemoglobin A1c Lactic Acid Calcium Phosphorus Magnesium Iron TIBC AST ALT Troponin T C-Reactive Protein Total Protein Albumin Triglycerides LDL Cholesterol Direct HDL Cholesterol Urine pH Urine WBC (Auto) Vancomycin Trough Salicylates Acetaminophen % CD3 Cells % CD19 Cells Absolute CD19 Count Miscellaneous Test Crossmatch 09/23/18 09/23/18 09/23/18 05:29 12:01 18:23 WBC RBC Hgb Hct RDW Plt Count Lymph % (Auto) [place] % (Auto) Lymph # [place] # Seg Neutrophils % Seg Neuts % (Manual) Lymphocytes % (Manual) Nucleated RBC % Seg Neutrophils # Seg Neutrophils # Man Lymphocytes # (Manual) D-Dimer POC ABG pH POC ABG pCO2 POC ABG pO2 VBG pH Sodium Potassium Chloride Carbon Dioxide BUN Creatinine Glucose POC Glucose 163 H 144 H 138 H Hemoglobin A1c Lactic Acid Calcium Phosphorus Magnesium Iron TIBC AST ALT Troponin T C-Reactive Protein Total Protein Albumin Triglycerides LDL Cholesterol Direct HDL Cholesterol Urine pH Urine WBC (Auto) Vancomycin Trough Salicylates Acetaminophen % CD3 Cells % CD19 Cells Absolute CD19 Count Miscellaneous Test Crossmatch 09/23/18 09/24/18 09/24/18 23:53 03:41 03:41 WBC RBC 3.00 L Hgb 9.2 L Hct 28.1 L RDW 16.7 H Plt Count 105 L Lymph % (Auto) [place] % (Auto) 12.3 H Lymph # [place] # Seg Neutrophils % Seg Neuts % (Manual) Lymphocytes % (Manual) Nucleated RBC % Seg Neutrophils # Seg Neutrophils # Man Lymphocytes # (Manual) D-Dimer POC ABG pH POC ABG pCO2 POC ABG pO2 VBG pH Sodium Potassium Chloride Carbon Dioxide BUN 21 H Creatinine 0.5 L Glucose 109 H POC Glucose 122 H Hemoglobin A1c Lactic Acid Calcium Phosphorus Magnesium Iron TIBC AST ALT Troponin T C-Reactive Protein Total Protein Albumin Triglycerides LDL Cholesterol Direct HDL Cholesterol Urine pH Urine WBC (Auto) Vancomycin Trough Salicylates Acetaminophen % CD3 Cells % CD19 Cells Absolute CD19 Count Miscellaneous Test Crossmatch 09/24/18 09/24/18 09/24/18 05:43 11:38 17:41 WBC RBC Hgb Hct RDW Plt Count Lymph % (Auto) [place] % (Auto) Lymph # [place] # Seg Neutrophils % Seg Neuts % (Manual) Lymphocytes % (Manual) Nucleated RBC % Seg Neutrophils # Seg Neutrophils # Man Lymphocytes # (Manual) D-Dimer POC ABG pH POC ABG pCO2 POC ABG pO2 VBG pH Sodium Potassium Chloride Carbon Dioxide BUN Creatinine Glucose POC Glucose 110 H 132 H 122 H Hemoglobin A1c Lactic Acid Calcium Phosphorus Magnesium Iron TIBC AST ALT Troponin T C-Reactive Protein Total Protein Albumin Triglycerides LDL Cholesterol Direct HDL Cholesterol Urine pH Urine WBC (Auto) Vancomycin Trough Salicylates Acetaminophen % CD3 Cells % CD19 Cells Absolute CD19 Count Miscellaneous Test Crossmatch 09/24/18 09/24/18 09/25/18 23:02 23:24 04:17 WBC RBC 3.07 L Hgb 9.5 L Hct 28.8 L RDW 16.6 H Plt Count Lymph % (Auto) [place] % (Auto) Lymph # [place] # Seg Neutrophils % Seg Neuts % (Manual) Lymphocytes % (Manual) Nucleated RBC % Seg Neutrophils # Seg Neutrophils # Man Lymphocytes # (Manual) D-Dimer POC ABG pH 7.516 H POC ABG pCO2 POC ABG pO2 VBG pH Sodium Potassium Chloride Carbon Dioxide BUN Creatinine Glucose POC Glucose 113 H Hemoglobin A1c Lactic Acid Calcium Phosphorus Magnesium Iron TIBC AST ALT Troponin T C-Reactive Protein Total Protein Albumin Triglycerides LDL Cholesterol Direct HDL Cholesterol Urine pH Urine WBC (Auto) Vancomycin Trough Salicylates Acetaminophen % CD3 Cells % CD19 Cells Absolute CD19 Count Miscellaneous Test Crossmatch 09/25/18 09/25/18 04:17 12:18 WBC RBC Hgb Hct RDW Plt Count Lymph % (Auto) [place] % (Auto) Lymph # [place] # Seg Neutrophils % Seg Neuts % (Manual) Lymphocytes % (Manual) Nucleated RBC % Seg Neutrophils # Seg Neutrophils # Man Lymphocytes # (Manual) D-Dimer POC ABG pH POC ABG pCO2 POC ABG pO2 VBG pH Sodium Potassium Chloride Carbon Dioxide BUN 24 H Creatinine 0.6 L Glucose 121 H POC Glucose 140 H Hemoglobin A1c Lactic Acid Calcium Phosphorus Magnesium Iron TIBC AST ALT Troponin T C-Reactive Protein Total Protein Albumin Triglycerides LDL Cholesterol Direct HDL Cholesterol Urine pH Urine WBC (Auto) Vancomycin Trough Salicylates Acetaminophen % CD3 Cells % CD19 Cells Absolute CD19 Count Miscellaneous Test Crossmatch Allied health notes reviewed: nursing
--- NOTE | 2018-09-25 16:33 | Progress Note ---
Assessment and Plan Assessment and plan: Acute hypoxic hypercapnic respiratory failure; extubated 08/29/18 Re Intubated 09/02/18, vent dependent s/p trach on 09/14/18 Status post bronchoscopy, BAL negative cont nebulizers, pulmonary following Dysphagia - could not placed PEG as could not be transilluminated stomach on EGD - s/p PEG done by IR 09/21/18, cont TF Hypokalemia, cont to replete, normal Mg level, likely from diarrhea Sepsis; new fever 102.6 on 09/18. Initially treated for aspiration pneumonia and Camryn glabrata fungemia; s/p micafungin, meropenem and Vanco per ID. treated for possible C.def with vancomycin po, C.def negative. monitor off abx now Recent Camryn glabrata fungemia: treated Thrombocytopenia: Platelet count is Stable Lovenox changed to Arixtra /Anemia: s/p transfusion[4 PRBC] Stool for occult blood x 2 negative, hematology following -Recent EGD at [facility] 08/08/2018 revealing irregular Z line, gastritis and small hiatal hernia - Recent colonoscopy at [facility] 08/08/2018 revealing sigmoid polyp, transverse colon polyps, inflamed hemorrhoids and diverticulosis Hypomagnesemia; Hypernatremia; resolved, Bileral lower extremity DVT; anticoagulation with arixtra CTA chest negative for PE Hypertension; continue current antihypertensives Severe malnutrition/hypoalbuminemia; Dietitian following, On TF Acute kidney injury; probably secondary to ATN, Resolved, Acute systolic congestive heart failure; EF 25-30%, Cardio following, monitor ins/os Previous echo 03/30/2016 at [facility] revealed normal LVEF Previous stress MPI 03/29/2016 at [facility] revealed no ischemia Elevated Transaminases; resolved DVT prophylaxis; on Eliquis Consults and recommendations noted and appreciated Plan of care reviewed with the patient and Nurse at bedside The high probability of a clinically significant, sudden or life threatening deterioration of the [respiratory, cardiology, ID, renal and metabolic] system(s) required my full and direct attention, intervention and personal management. The aggregate critical care time was [32] minutes. This time is in addition to time spent performing reported procedures but includes the following: [x] Data Review and interpretation [x] Patient assessment and monitoring of vital signs [x] Documentation [x] Medication orders and management Disposition: Plan to d/c to LTAC pending. History Interval history: Off ventilator from yesterday Asking when she can go home Hospitalist Physical - Physical exam Narrative exam: Gen: Not in acute distress, lying in bed HEENT: Normocephalic, atraumatic Neck: supple, no JVD, tracheostomy Heart: S1 and S2 reg, no murmurs, rubs or gallop Lungs: Clear, no crackles Abd: soft, non tender, non distended, normal BS Ext: No edema, no clubbing, no cyanosis, left arm av fistula Neuro: Awake,alert, no focal signs, moves all ext - Constitutional Vitals: Temp Pulse Resp BP Pulse Ox 98.6 F 77 21 103/54 98 09/25/18 12:00 09/25/18 12:31 09/25/18 12:31 09/25/18 12:31 09/25/18 12:31 General appearance: Present: no acute distress Results - Labs CBC & Chem 7: 09/25/18 04:17 09/25/18 04:17 Labs: Laboratory Last Values WBC 4.8 K/mm3 (4.5-11.0) 09/25/18 04:17 RBC 3.07 M/mm3 (3.65-5.03) L 09/25/18 04:17 Hgb 9.5 gm/dl (10.1-14.3) L 09/25/18 04:17 Hct 28.8 % (30.3-42.9) L 09/25/18 04:17 MCV 94 fl (79-97) 09/25/18 04:17 MCH 31 pg (28-32) 09/25/18 04:17 MCHC 33 % (30-34) 09/25/18 04:17 RDW 16.6 % (13.2-15.2) H 09/25/18 04:17 Plt Count K/mm3 (140-440) 09/25/18 04:17 Lymph % (Auto) 30.8 % (13.4-35.0) 09/24/18 03:41 [place] % (Auto) 12.3 % (0.0-7.3) H 09/24/18 03:41 Eos % (Auto) 0.0 % (0.0-4.3) 09/24/18 03:41 Baso % (Auto) 0.5 % (0.0-1.8) 09/24/18 03:41 Lymph # 1.4 K/mm3 (1.2-5.4) 09/24/18 03:41 [place] # 0.6 K/mm3 (0.0-0.8) 09/24/18 03:41 Eos # 0.0 K/mm3 (0.0-0.4) 09/24/18 03:41 Baso # 0.0 K/mm3 (0.0-0.1) 09/24/18 03:41 Add Manual Diff Complete 09/07/18 05:40 Total Counted 100 09/07/18 05:40 Seg Neutrophils % 56.4 % (40.0-70.0) 09/24/18 03:41 Seg Neuts % (Manual) 80.0 % (40.0-70.0) H 09/07/18 05:40 Band Neutrophils % 0 % 09/07/18 05:40 Lymphocytes % (Manual) 15.0 % (13.4-35.0) 09/07/18 05:40 Reactive Lymphs % (Man) 0 % 09/07/18 05:40 Monocytes % (Manual) 2.0 % (0.0-7.3) 09/07/18 05:40 Eosinophils % (Manual) 0 % (0.0-4.3) 09/07/18 05:40 Basophils % (Manual) 0 % (0.0-1.8) 09/07/18 05:40 Metamyelocytes % 2.0 % 09/07/18 05:40 Myelocytes % 1.0 % 09/07/18 05:40 Promyelocytes % 0 % 09/07/18 05:40 Blast Cells % 0 % 09/07/18 05:40 Nucleated RBC % 1.0 % (0.0-0.9) H 09/07/18 05:40 Seg Neutrophils # 2.6 K/mm3 (1.8-7.7) 09/24/18 03:41 Seg Neutrophils # Man 4.3 K/mm3 (1.8-7.7) 09/07/18 05:40 Band Neutrophils # 0.0 K/mm3 09/07/18 05:40 Abs Lymphs (Manual) 3262 cells/uL (850-3900) 08/19/18 14:32 Lymphocytes # (Manual) 0.8 K/mm3 (1.2-5.4) L 09/07/18 05:40 Abs React Lymphs (Man) 0.0 K/mm3 09/07/18 05:40 Monocytes # (Manual) 0.1 K/mm3 (0.0-0.8) 09/07/18 05:40 Eosinophils # (Manual) 0.0 K/mm3 (0.0-0.4) 09/07/18 05:40 Basophils # (Manual) 0.0 K/mm3 (0.0-0.1) 09/07/18 05:40 Metamyelocytes # 0.1 K/mm3 09/07/18 05:40 Myelocytes # 0.1 K/mm3 09/07/18 05:40 Promyelocytes # 0.0 K/mm3 09/07/18 05:40 Blast Cells # 0.0 K/mm3 09/07/18 05:40 WBC Morphology Not Reportable 09/07/18 05:40 Hypersegmented Neuts Not Reportable 09/07/18 05:40 Hyposegmented Neuts Not Reportable 09/07/18 05:40 Hypogranular Neuts Not Reportable 09/07/18 05:40 Smudge Cells Not Reportable 09/07/18 05:40 Toxic Granulation Not Reportable 09/07/18 05:40 Toxic Vacuolation Not Reportable 09/07/18 05:40 Dohle Bodies Not Reportable 09/07/18 05:40 Pelger-Huet Anomaly Not Reportable 09/07/18 05:40 Rosy Rods Not Reportable 09/07/18 05:40 Platelet Estimate Consistent w auto 09/07/18 05:40 Clumped Platelets Not Reportable 09/07/18 05:40 Plt Clumps, EDTA Not Reportable 09/07/18 05:40 Large Platelets Rare 09/07/18 05:40 Giant Platelets Not Reportable 09/07/18 05:40 Platelet Satelliting Not Reportable 09/07/18 05:40 Plt Morphology Comment Not Reportable 09/07/18 05:40 RBC Morphology Not Reportable 09/07/18 05:40 Dimorphic RBCs Not Reportable 09/07/18 05:40 Polychromasia Not Reportable 09/07/18 05:40 Hypochromasia Rare 09/07/18 05:40 Poikilocytosis Not Reportable 09/07/18 05:40 Anisocytosis Few 09/07/18 05:40 Microcytosis Not Reportable 09/07/18 05:40 Macrocytosis Not Reportable 09/07/18 05:40 Spherocytes Not Reportable 09/07/18 05:40 Pappenheimer Bodies Not Reportable 09/07/18 05:40 Sickle Cells Not Reportable 09/07/18 05:40 Target Cells Not Reportable 09/07/18 05:40 Tear Drop Cells Not Reportable 09/07/18 05:40 Ovalocytes Not Reportable 09/07/18 05:40 Helmet Cells Not Reportable 09/07/18 05:40 [employer] Bodies Not Reportable 09/07/18 05:40 Logan Rings Not Reportable 09/07/18 05:40 [place] Cells Not Reportable 09/07/18 05:40 Bite Cells Not Reportable 09/07/18 05:40 Crenated Cell Not Reportable 09/07/18 05:40 Elliptocytes Not Reportable 09/07/18 05:40 Acanthocytes (Spur) Not Reportable 09/07/18 05:40 Rouleaux Not Reportable 09/07/18 05:40 Hemoglobin C Crystals Not Reportable 09/07/18 05:40 Schistocytes Not Reportable 09/07/18 05:40 Malaria parasites Not Reportable 09/07/18 05:40 Ceasar Bodies Not Reportable 09/07/18 05:40 Hem Pathologist Commnt No 09/07/18 05:40 PT 14.2 Sec. (12.2-14.9) 09/14/18 04:55 INR 1.04 (0.87-1.13) 09/14/18 04:55 D-Dimer 2768.33 ng/mlDDU (0-234) H 08/15/18 18:31 Heparin Anti-Xa, Unfract Negative (Negative) 08/22/18 15:29 POC ABG pH 7.516 (7.35-7.45) H 09/24/18 23:24 POC ABG pCO2 37.6 (35-45) 09/24/18 23:24 POC ABG pO2 94 (80-105) 09/24/18 23:24 POC ABG HCO3 30.5 (22-26 mml/L) 09/24/18 23:24 POC ABG Total CO2 32 (23-27mmol/L) 09/24/18 23:24 POC ABG O2 Sat 98 09/24/18 23:24 POC ABG Base Excess 8 ((-2) - (+3)mmol/L) 09/24/18 23:24 VBG pH 7.187 (7.320-7.420) L* 08/15/18 18:19 FiO2 40 % 09/24/18 23:24 Sodium 140 mmol/L (137-145) 09/25/18 04:17 Potassium 3.9 mmol/L (3.6-5.0) 09/25/18 04:17 Chloride 102.2 mmol/L (98-107) 09/25/18 04:17 Carbon Dioxide 25 mmol/L (22-30) 09/25/18 04:17 Anion Gap 17 mmol/L 09/25/18 04:17 BUN 24 mg/dL (7-17) H 09/25/18 04:17 Creatinine 0.6 mg/dL (0.7-1.2) L 09/25/18 04:17 Estimated GFR > 60 ml/min 09/25/18 04:17 BUN/Creatinine Ratio 40 % 09/25/18 04:17 Glucose 121 mg/dL (65-100) H 09/25/18 04:17 POC Glucose 140 (70-105) H 09/25/18 12:18 Hemoglobin A1c 6.4 % (4-6) H 08/15/18 23:09 Lactic Acid 1.20 mmol/L (0.7-2.0) 08/22/18 15:29 Calcium 9.4 mg/dL (8.4-10.2) 09/25/18 04:17 Phosphorus 3.60 mg/dL (2.5-4.5) 09/11/18 01:10 Magnesium 1.70 mg/dL (1.7-2.3) 09/18/18 04:20 Iron 26 ug/dL (37-170) L 09/07/18 05:40 TIBC 150 mcg/dL (250-450) L 09/07/18 05:40 Ferritin 375.0 ng/mL (13.0-400.0) 09/07/18 05:40 Total Bilirubin 0.50 mg/dL (0.1-1.2) 09/14/18 04:55 Direct Bilirubin < 0.2 mg/dL (0-0.2) 09/14/18 04:55 Indirect Bilirubin 0.3 mg/dL 09/14/18 04:55 AST 60 units/L (5-40) H 09/14/18 04:55 ALT 88 units/L (7-56) H 09/14/18 04:55 Alkaline Phosphatase 66 units/L (35-129) 09/14/18 04:55 Troponin T 0.317 ng/mL (0.00-0.029) H* D 08/18/18 13:39 C-Reactive Protein 5.00 mg/dL (0.00-1.30) H 08/25/18 05:20 Total Protein 5.6 g/dL (6.3-8.2) L 09/14/18 04:55 Albumin 2.2 g/dL (3.9-5) L 09/14/18 04:55 Albumin/Globulin Ratio 0.6 % 09/14/18 04:55 Triglycerides 197 mg/dL (2-149) H 08/22/18 06:45 Cholesterol 87 mg/dL (50-199) 08/15/18 18:31 LDL Cholesterol Direct 4 mg/dL (50-130) L 08/15/18 18:31 HDL Cholesterol 10 mg/dL (40-59) L 08/15/18 18:31 Cholesterol/HDL Ratio 8.70 % 08/15/18 18:31 Serotonin Release Assay See scanned results 08/22/18 15:29 Vitamin B12 388.4 pg/mL (211-911) 09/07/18 05:40 Folate 19.01 ng/mL (7.3-26.0) 09/07/18 05:40 Total Cortisol 21.4 mcg/dL () 08/25/18 08:52 Urine Color Straw (Yellow) 09/20/18 16:10 Urine Turbidity Clear (Clear) 09/20/18 16:10 Urine pH 9.0 (5.0-7.0) H 09/20/18 16:10 Ur Specific [place] 1.006 (1.003-1.030) 09/20/18 16:10 Urine Protein <15 mg/dl mg/dL (Negative) 09/20/18 16:10 Urine Glucose (UA) Neg mg/dL (Negative) 09/20/18 16:10 Urine Ketones Neg mg/dL (Negative) 09/20/18 16:10 Urine Blood Lg (Negative) 09/20/18 16:10 Urine Nitrite Neg (Negative) 09/20/18 16:10 Urine Bilirubin Neg (Negative) 09/20/18 16:10 Urine Urobilinogen < 2.0 mg/dL (<2.0) 09/20/18 16:10 Ur Leukocyte Esterase Neg (Negative) 09/20/18 16:10 Urine WBC (Auto) 4.0 /HPF (0.0-6.0) 09/20/18 16:10 Urine RBC (Auto) > 182.0 /HPF (0.0-6.0) 09/20/18 16:10 Urine Bacteria (Auto) 1+ /HPF (Negative) 09/20/18 16:10 Urine WBC Clumps 2+ /HPF 08/15/18 19:15 Amorphous Crystals 1+ 08/15/18 19:15 Hyaline Casts 54 /LPF 08/15/18 19:15 Granular Casts 14 /LPF 08/15/18 19:15 Urine Mucus Few /HPF 09/20/18 16:10 Vancomycin Trough 28.6 ug/mL (5.0-20.0) H 09/06/18 14:40 Salicylates < 0.3 mg/dL (2.8-20.0) L 08/15/18 19:14 Urine Opiates Screen Presumptive positive 08/15/18 19:15 Urine Methadone Screen Presumptive negative 08/15/18 19:15 Acetaminophen < 5.0 ug/mL (10.0-30.0) L 08/15/18 19:14 Ur Barbiturates Screen Presumptive negative 08/15/18 19:15 Ur Phencyclidine Scrn Presumptive negative 08/15/18 19:15 Ur Amphetamines Screen Presumptive negative 08/15/18 19:15 U Benzodiazepines Scrn Presumptive negative 08/15/18 19:15 Urine Cocaine Screen Presumptive negative 08/15/18 19:15 U Marijuana (THC) Screen Presumptive negative 08/15/18 19:15 Drugs of Abuse Note Disclamer 08/15/18 19:15 Heparin-induced Plt Ab Negative (Negative) 08/22/18 15:29 UF Heparin High Dose 0 % Release 08/22/18 15:29 NAZIA UFH Low Dose 0.1 0 % Release 08/22/18 15:29 NAZIA UFH Low Dose 0.5 0 % Release 08/22/18 15:29 Lymph Enumerat CD4/CD8 1.98 (0.86-5.00) 08/19/18 14:32 % CD3 Cells 44 % (57-85) L 08/19/18 14:32 Absolute CD3 Count 1451 cells/uL (840-3060) 08/19/18 14:32 % CD4 Cells 30 % (30-61) 08/19/18 14:32 Absolute CD4 Count 1004 cells/uL (490-1740) 08/19/18 14:32 % CD8 Cells 15 % (12-42) 08/19/18 14:32 Absolute CD8 Count 508 cells/uL (180-1170) 08/19/18 14:32 % CD19 Cells 41 % (6-29) H 08/19/18 14:32 Absolute CD19 Count 1290 cells/uL (110-660) H 08/19/18 14:32 C. difficile Tox (PCR) Negative (Negative) 09/20/18 13:51 C. difficile Toxin A&B Negative (Negative) 08/19/18 14:00 HIV 1&2 Antibody Rapid Non react (Non React) 08/18/18 13:39 HIV P24 Antigen Non react (Non React) 08/18/18 13:39 Miscellaneous Test Flexitest 1 09/15/18 11:35 Blood Type O POSITIVE 09/14/18 12:00 Antibody Screen Negative 09/14/18 12:00 Crossmatch See Detail 09/14/18 12:00 Active Medications - Current Medications Current Medications: Generic Name Dose Route Start Last Admin Trade Name Freq PRN Reason Stop Dose Admin Acetaminophen 650 mg 08/15/18 22:12 09/24/18 00:17 Tylenol PO 650 mg Q4H PRN Administration Pain MILD(1-3)/Fever >100.5/MONDRAGON Albuterol 2.5 mg 08/17/18 17:00 Proventil IH Q3HRT PRN Shortness Of Breath Lipase/Protease/Amylase 1 each 09/17/18 09:[address] 10,500 Unit FEEDTUBE PRN PRN For Clogged Feeding Tube Apixaban 10 mg 09/22/18 10:00 09/25/18 10:43 Eliquis PO 09/28/18 22:01 10 mg Q12HR LAMAR Administration Apixaban 5 mg 09/29/18 10:00 Eliquis PO Q12HR LAMAR Arformoterol Tartrate 15 mcg 08/18/18 20:00 09/25/18 08:14 Brovana Nebu IH 15 mcg Q12HRT LAMAR Administration Budesonide 0.5 mg 08/18/18 20:00 09/25/18 08:14 Pulmicort IH 0.5 mg Q12HRT LAMAR Administration Carvedilol 3.125 mg 09/20/18 10:00 09/25/18 10:46 Coreg PO 3.125 mg BID LAMAR Administration Clonidine HCl 0.2 mg 09/25/18 10:00 09/25/18 10:47 Catapres-Tts Patch TD 0.2 mg Pearson LAMAR Administration Famotidine 20 mg 09/05/18 10:00 09/25/18 10:43 Pepcid PO 20 mg BID LAMAR Administration Furosemide 20 mg 09/18/18 12:00 09/25/18 10:43 Lasix IV 20 mg QDAY LAMAR Administration Hydralazine HCl 10 mg 08/19/18 13:59 09/19/18 02:27 Apresoline IV 10 mg Q3H PRN Administration Hydralazine HCl 25 mg 09/01/18 14:00 09/25/18 05:34 Apresoline PO Not Given Q8HR [facility] Hydromorphone HCl 2 mg 09/06/18 12:00 09/25/18 12:31 Dilaudid PO 2 mg Q6HR [facility] Administration Hydrophilic Ointment 1 applic 08/15/18 21:55 09/01/18 09:07 Vaseline Lip Therapy TP 1 applic Q2HR PRN Administration Dry Lips Insulin Human Lispro 0 unit 09/04/18 18:00 09/25/18 12:33 Humalog SUB-Q Not Given Q6HR [facility] Protocol Metoclopramide HCl 5 mg 08/15/18 22:50 09/17/18 10:48 Reglan IV 5 mg Q6H PRN Administration Nausea And Vomiting Midazolam HCl 1 mg 09/07/18 09:23 09/24/18 21:03 Versed IV 1 mg Q4H PRN Administration AGITATION Ondansetron HCl 4 mg 08/15/18 22:12 08/31/18 17:52 Zofran IV 4 mg Q8H PRN Administration Nausea And Vomiting Potassium Chloride 40 meq 09/20/18 22:00 09/24/18 21:51 Potassium Chloride PO 40 meq QDAY@2200 LAMAR Administration Quetiapine Fumarate 100 mg 09/19/18 22:00 09/25/18 10:43 Seroquel PO 100 mg BID LAMAR Administration Quetiapine Fumarate 100 mg 09/19/18 22:00 09/24/18 21:48 Seroquel PO 100 mg QHS LAMAR Administration Simple Syrup 15 ml 09/17/18 09:06 Simple Syrup FEEDTUBE PRN PRN Hypoglycemia Simple Syrup 30 ml 09/17/18 09:06 Simple Syrup FEEDTUBE PRN PRN Hypoglycemia Sodium Bicarbonate 325 mg 09/17/18 09:06 Sodium Bicarbonate FEEDTUBE PRN PRN For Clogged Feeding Tube Sodium Chloride 10 ml 08/15/18 22:12 09/17/18 21:51 Sodium Chloride Flush Syringe 10 Ml IV 10 ml PRN PRN Administration LINE FLUSH Nutrition/Malnutrition Assess - Dietary Evaluation Nutrition/Malnutrition Findings: Nutrition Notes Start: 08/17/18 13:57 Freq: Status: Active Protocol: Document 09/22/18 11:43 SA (Rec: 09/22/18 11:47 [email or web address]) Co-Sign 09/22/18 11:43 LP Nutrition Notes Initial or Follow up Reassessment Current Diagnosis Sepsis,Hypertension,Heart Failure,Respiratory Failure Other Pertinent Diagnosis Dysphagia, bilat LE DVT Current Diet TF - Vital High Protein @ 55 ml/hr Labs/Tests BUN: 21 Cr: 0.6 Pertinent Medications Lasix Humalog Height 5 ft 7 in Weight 93.4 kg [place] Body Weight (kg) 61.36 BMI 32.2 Subjective/Other Information PEG placed yesterday. TF running at goal rate and pt tolerating TF. Percent of energy/protein needs met: 100%/94% Burn Absent Trauma Absent #1 Nutrition Diagnosis Inadequate oral intake Diagnosis Progress(for reassessment Continues documentation) Is patient on ventilator? Yes Is Patient Ambulatory and/or Out of Bed No REE-([place]-St. Jeor-confined to bed) 1801.356 Kcal/Kg value to use for calculation 14 Approximate Energy Requirements Using 1308 kcal/Kg Calculation Used for Recommendations Kcal/kg Additional Notes Pro needs 2g/kg IBW: 123g/day Fluid needs 1ml/kcal Nutrition Intervention Nutrition Support: Vital High Protein at 55ml/hr. Provide 50ml water flush q4h. Kcal 1,320 Protein (gm) 116 Fluid (mL) 1,103 Goal #1 TF tolerance Goal #2 TF to meet at least 75% of kcal and pro needs via TF. Anticipated Discharge Needs: unable to determine at this time Follow-Up By: 09/29/18 Additional Comments F/U: TF tolerance
[2018-09-25] MEDS ORDERED: MYLICON PO PRN (17:15)
[2018-09-25] MEDS: POTASSIUM CHLORIDE PO SCH (21:50)
[2018-09-26] MEDS: HumaLOG SUB-Q SCH ×3 (00:51→12:25)
[2018-09-26] MEDS: DILAUDID PO SCH ×4 (02:14→18:03)
[2018-09-26] MEDS: VERSED IV PRN (03:36)
[2018-09-26 04:36] LABS: Hematocrit 27.7 % (30.3-42.9); Hemoglobin 9.3 gm/dl (10.1-14.3); Mean Corpuscular HGB Conc 34 % (30-34); Mean Corpuscular Volume 93 fl (79-97); Platelet Count 193 K/mm3 (140-440); Red Blood Count 2.98 M/mm3 (3.65-5.03); Red Cell Distribution Width 16.6 % (13.2-15.2)
[2018-09-26 04:49] LABS: BUN/Creatinine Ratio 58; Blood Urea Nitrogen 29 mg/dL (7-17); Calcium 9.3 mg/dL (8.4-10.2); Hemolysis Index 3
[2018-09-26] MEDS: APRESOLINE PO SCH ×3 (06:06→21:39)
--- NOTE | 2018-09-26 07:42 | Hem/Onc Progress Note ---
Assessment and Plan #. Bilateral posterior tibial and peroneal vein deep venous thrombosis, left leg edema. Arixtra was being used. - back on same #. h/o Thrombocytopenia. The patient was on heparin-based treatment. Later fondaparinux. HIT negative, plt now better #. Anemia. At admission, hemoglobin was normal. The patient received blood transfusion. deficiency workup low iron - Ferritin - b12 - folate normal . There may be a bleeding component. s/p Iv iron trial #. Pulmonary embolism study is negative. #. h/o Camryn infection. #. Chronic obstructive pulmonary disease. #. History of renal failure. Nephrology following. #. Respiratory failure, on ventilator. History of cardiomyopathy. - s/p trach 09/26 - leg dvt. peg tube done trach+ pt was HIT negative ale pt wants to go home - d/w dr anderson - LTAC eval hb >9 - Patient Problems (1) Thrombocytopenia Current Visit: Yes Status: Acute (2) DVT (deep venous thrombosis) Current Visit: Yes Status: Acute (3) Anemia Current Visit: Yes Status: Acute Subjective Date of service: 09/26/18 Principal diagnosis: dvt - anemia Interval history: pt wants to go home Objective - Constitutional Vitals: Last Vital Signs Temp 98.9 F 09/26/18 03:01 Pulse 73 09/26/18 06:06 Resp 19 09/26/18 06:00 BP 134/63 09/26/18 06:06 Pulse Ox 100 09/26/18 06:00 General appearance: no acute distress Performance status: 3-limited selfcare - EENT Eyes: EOM intact ENT: hearing intact, other (trach) - Respiratory Respiratory effort: Positive: normal Respiratory: bilateral: diminished - Cardiovascular Heart Sounds: Present: S1 & S2 Extremities: No edema - Gastrointestinal General gastrointestinal: Present: soft, non-tender Rectal Exam: deferred - Genitourinary Female genitourinary: Present: deferred - Integumentary Integumentary: warm - Musculoskeletal Musculoskeletal: strength equal bilaterally - Neurologic Neurologic: moves all extremities - Labs Lab Results: Laboratory Results - last 24 hr 09/25/18 09/25/18 09/25/18 12:18 17:33 23:57 WBC RBC Hgb Hct MCV MCH MCHC RDW Plt Count Sodium Potassium Chloride Carbon Dioxide Anion Gap BUN Creatinine Estimated GFR BUN/Creatinine Ratio Glucose POC Glucose 140 H 121 H 110 H Calcium 09/26/18 09/26/18 09/26/18 04:02 04:02 05:04 WBC 5.2 RBC 2.98 L Hgb 9.3 L Hct 27.7 L MCV 93 MCH 31 MCHC 34 RDW 16.6 H Plt Count 193 Sodium 139 Potassium 4.0 Chloride 101.6 Carbon Dioxide 27 Anion Gap 14 BUN 29 H Creatinine 0.5 L Estimated GFR > 60 BUN/Creatinine Ratio 58 Glucose 141 H POC Glucose 125 H Calcium 9.3 Medications & Allergies - Medications Allergies/Adverse Reactions: Allergies No Known Allergies Allergy (Unverified 08/15/18 16:49) Home Medications: Home Medications Medication Instructions Recorded Confirmed Last Taken Type Carvedilol 6.25 mg PO BID 08/15/18 08/15/18 Unknown History DULoxetine 60 mg PO QDAY 08/15/18 08/15/18 Unknown History Gabapentin 600 mg PO Q6HR PRN 08/15/18 08/15/18 Unknown History Methylphenidate 5 mg PO TID 08/15/18 08/15/18 Unknown History Morphabond ER 60 mg PO Q12HR 08/15/18 08/15/18 Unknown History Pravastatin Sodium 10 mg PO QDAY 08/15/18 08/15/18 Unknown History Tizanidine HCl 4 mg PO Q12HR 08/15/18 08/15/18 Unknown History oxyCODONE /ACETAMINOPHEN 7.5 - 325 mg PO Q8HR 08/15/18 08/15/18 Unknown History ALBUTEROL Inhaler(NF) 90 mcg IH TID 08/29/18 08/29/18 Unknown History Omeprazole-Bicarb 40-1,100 Cap 40 mg PO DAILY 08/29/18 08/29/18 Unknown History Active Medications: Generic Name Dose Route Start Last Admin Trade Name Freq PRN Reason Stop Dose Admin Acetaminophen 650 mg 08/15/18 22:12 09/24/18 00:17 Tylenol PO 650 mg Q4H PRN Administration Pain MILD(1-3)/Fever >100.5/[place] Albuterol 2.5 mg 08/17/18 17:00 Proventil IH Q3HRT PRN Shortness Of Breath Lipase/Protease/Amylase 1 each 09/17/18 09:06 Pancresam Elizabeth 10,500 Unit FEEDTUBE PRN PRN For Clogged Feeding Tube Apixaban 10 mg 09/22/18 10:00 09/25/18 21:50 Eliquis PO 09/28/18 22:01 10 mg Q12HR LAMAR Administration Apixaban 5 mg 09/29/18 10:00 Eliquis PO Q12HR LAMAR Arformoterol Tartrate 15 mcg 08/18/18 20:00 09/25/18 19:24 Brovana Nebu IH 15 mcg Q12HRT [facility] Administration Budesonide 0.5 mg 08/18/18 20:00 09/25/18 19:24 Pulmicort IH 0.5 mg Q12HRT LAMAR Administration Carvedilol 3.125 mg 09/20/18 10:00 09/25/18 21:51 Coreg PO 3.125 mg BID LAMAR Administration Clonidine HCl 0.2 mg 09/25/18 10:00 09/25/18 10:47 Catapres-Tts Patch TD 0.2 mg Pearson LAMAR Administration Famotidine 20 mg 09/05/18 10:00 09/25/18 21:51 Pepcid PO 20 mg BID [facility] Administration Furosemide 20 mg 09/18/18 12:00 09/25/18 10:43 Lasix IV 20 mg QDAY LAMAR Administration Hydralazine HCl 10 mg 08/19/18 13:59 09/19/18 02:27 Apresoline IV 10 mg Q3H PRN Administration Hydralazine HCl 25 mg 09/01/18 14:00 09/26/18 06:06 Apresoline PO 25 mg Q8HR [facility] Administration Hydromorphone HCl 2 mg 09/06/18 12:00 09/26/18 06:05 Dilaudid PO 2 mg Q6HR [facility] Administration Hydrophilic Ointment 1 applic 08/15/18 21:55 09/01/18 09:07 Vaseline Lip Therapy TP 1 applic Q2HR PRN Administration Dry Lips Insulin Human Lispro 0 unit 09/04/18 18:00 09/26/18 06:06 Humalog SUB-Q Not Given Q6HR [facility] Protocol Metoclopramide HCl 5 mg 08/15/18 22:50 09/17/18 10:48 Reglan IV 5 mg Q6H PRN Administration Nausea And Vomiting Midazolam HCl 1 mg 09/07/18 09:23 09/26/18 03:36 Versed IV 1 mg Q4H PRN Administration AGITATION Ondansetron HCl 4 mg 08/15/18 22:12 08/31/18 17:52 Zofran IV 4 mg Q8H PRN Administration Nausea And Vomiting Potassium Chloride 40 meq 09/20/18 22:00 09/25/18 21:50 Potassium Chloride PO 40 meq QDAY@2200 LAMAR Administration Quetiapine Fumarate 100 mg 09/19/18 22:00 09/25/18 21:53 Seroquel PO 100 mg BID LAMAR Administration Quetiapine Fumarate 100 mg 09/19/18 22:00 09/24/18 21:48 Seroquel PO 100 mg QHS LAMAR Administration Simethicone 80 mg 09/25/18 17:15 09/25/18 17:32 Mylicon PO 80 mg Q6H PRN Administration Gas pain Simple Syrup 15 ml 09/17/18 09:06 Simple Syrup FEEDTUBE PRN PRN Hypoglycemia Simple Syrup 30 ml 09/17/18 09:06 Simple Syrup FEEDTUBE PRN PRN Hypoglycemia Sodium Bicarbonate 325 mg 09/17/18 09:06 Sodium Bicarbonate FEEDTUBE PRN PRN For Clogged Feeding Tube Sodium Chloride 10 ml 08/15/18 22:12 09/17/18 21:51 Sodium Chloride Flush Syringe 10 Ml IV 10 ml PRN PRN Administration LINE FLUSH
[2018-09-26] MEDS: BROVANA NEBU IH SCH ×2 (08:01→20:48)
[2018-09-26] MEDS: PULMICORT IH SCH ×2 (08:01→20:48)
--- NOTE | 2018-09-26 08:54 | Progress Note ---
Assessment and Plan Assessment and plan: patient is 68-year-old female patient with history of COPD, arthritis s/p C-spine and lumbar spine surgery, Chronic pain syndrome who was found unconscious in her feces and vomitus. Patient's family was in [place] for a golf tournament. Patient was brought to the emergency room noted to be severely hypoxic and tachypneic, promptly intubated placed on ventilatory support and admitted to ICU. She was also noted to have possible aspiration pneumonia, completed treatment recommended by ID .currently monitoring off antibiotics . She also had acute gastroenteritis, acute kidney injury, nonspecific elevation of troponins as well as septic shock evaluated by multiple specialties successfully weaned and extubated on 08/29/2018 however patient again went into acute respiratory failure requiring reintubation on 09/02/2018. She had trach 09/14/18 and PEG 09/21/18. She is also being treated for acute b/l DVT with Eliquis. s/p 4units of PRBC transfusion for anemia, no acute source of active bleeding so far. She has improved, now off vent. stable to transfer to [facility] today. awaiting LTAC placement. Acute hypoxic hypercapnic respiratory failure; extubated 08/29/18 Re Intubated 09/02/18, was vent dependent, trach done, now off vent s/p trach on 09/14/18 Status post bronchoscopy, BAL negative cont nebulizers, pulmonary following Dysphagia - s/p PEG done by IR 09/21/18, cont TF Hypokalemia, cont to replete, normal Mg level, likely from diarrhea Sepsis; new fever 102.6 on 09/18. Initially treated for aspiration pneumonia and Camryn glabrata fungemia; s/p micafungin, meropenem and Vanco per ID. treated for possible C.diff with vancomycin po, C.def negative. monitor off abx now Recent Camryn glabrata fungemia: treated Thrombocytopenia: Platelet count is Stable Lovenox changed to Arixtra, then to Eliquis /Anemia: s/p transfusion[4 PRBC] Stool for occult blood x 2 negative, hematology following -Recent EGD at [facility] 08/08/2018 revealing irregular Z line, gastritis and small hiatal hernia - Recent colonoscopy at [facility] 08/08/2018 revealing sigmoid polyp, transverse colon polyps, inflamed hemorrhoids and diverticulosis Hypomagnesemia; Hypernatremia; resolved, Bileral lower extremity DVT; anticoagulation with arixtra CTA chest negative for PE Hypertension; continue current antihypertensives Severe malnutrition/hypoalbuminemia; Dietitian following, On TF Acute kidney injury; probably secondary to ATN, Resolved, Acute systolic congestive heart failure; EF 25-30%, Cardio following, monitor ins/os Previous echo 03/30/2016 at [facility] revealed normal LVEF Previous stress MPI 03/29/2016 at [facility] revealed no ischemia Elevated Transaminases; resolved DVT prophylaxis; on Eliquis Consults and recommendations noted and appreciated Plan of care reviewed with the patient and Nurse at bedside The high probability of a clinically significant, sudden or life threatening deterioration of the [respiratory, cardiology, ID, renal and metabolic] system(s) required my full and direct attention, intervention and personal management. The aggregate critical care time was [35] minutes. This time is in addition to time spent performing reported procedures but includes the following: [x] Data Review and interpretation [x] Patient assessment and monitoring of vital signs [x] Documentation [x] Medication orders and management Disposition: Plan to d/c to LTAC pending. Stable to go to tele today History Interval history: Off ventilator since 09/24/18 Asking when she can go home Hospitalist Physical - Physical exam Narrative exam: Gen: Not in acute distress, lying in bed HEENT: Normocephalic, atraumatic Neck: supple, no JVD, tracheostomy Heart: S1 and S2 reg, no murmurs, rubs or gallop Lungs: Clear, no crackles Abd: soft, non tender, non distended, normal BS, PEG Ext: No edema, no clubbing, no cyanosis, left arm av fistula Neuro: Awake,alert, no focal signs, moves all ext - Constitutional Vitals: Temp Pulse Resp BP Pulse Ox 98.7 F 68 18 108/38 98 09/26/18 08:00 09/26/18 08:20 09/26/18 08:20 09/26/18 08:01 09/26/18 08:01 General appearance: Present: no acute distress Results - Labs CBC & Chem 7: 09/26/18 04:02 09/26/18 04:02 Labs: Laboratory Last Values WBC 5.2 K/mm3 (4.5-11.0) 09/26/18 04:02 RBC 2.98 M/mm3 (3.65-5.03) L 09/26/18 04:02 Hgb 9.3 gm/dl (10.1-14.3) L 09/26/18 04:02 Hct 27.7 % (30.3-42.9) L 09/26/18 04:02 MCV 93 fl (79-97) 09/26/18 04:02 MCH 31 pg (28-32) 09/26/18 04:02 MCHC 34 % (30-34) 09/26/18 04:02 RDW 16.6 % (13.2-15.2) H 09/26/18 04:02 Plt Count 193 K/mm3 (140-440) 09/26/18 04:02 Lymph % (Auto) 30.8 % (13.4-35.0) 09/24/18 03:41 Sully % (Auto) 12.3 % (0.0-7.3) H 09/24/18 03:41 Eos % (Auto) 0.0 % (0.0-4.3) 09/24/18 03:41 Baso % (Auto) 0.5 % (0.0-1.8) 09/24/18 03:41 Lymph # 1.4 K/mm3 (1.2-5.4) 09/24/18 03:41 Sully # 0.6 K/mm3 (0.0-0.8) 09/24/18 03:41 Eos # 0.0 K/mm3 (0.0-0.4) 09/24/18 03:41 Baso # 0.0 K/mm3 (0.0-0.1) 09/24/18 03:41 Add Manual Diff Complete 09/07/18 05:40 Total Counted 100 09/07/18 05:40 Seg Neutrophils % 56.4 % (40.0-70.0) 09/24/18 03:41 Seg Neuts % (Manual) 80.0 % (40.0-70.0) H 09/07/18 05:40 Band Neutrophils % 0 % 09/07/18 05:40 Lymphocytes % (Manual) 15.0 % (13.4-35.0) 09/07/18 05:40 Reactive Lymphs % (Man) 0 % 09/07/18 05:40 Monocytes % (Manual) 2.0 % (0.0-7.3) 09/07/18 05:40 Eosinophils % (Manual) 0 % (0.0-4.3) 09/07/18 05:40 Basophils % (Manual) 0 % (0.0-1.8) 09/07/18 05:40 Metamyelocytes % 2.0 % 09/07/18 05:40 Myelocytes % 1.0 % 09/07/18 05:40 Promyelocytes % 0 % 09/07/18 05:40 Blast Cells % 0 % 09/07/18 05:40 Nucleated RBC % 1.0 % (0.0-0.9) H 09/07/18 05:40 Seg Neutrophils # 2.6 K/mm3 (1.8-7.7) 09/24/18 03:41 Seg Neutrophils # Man 4.3 K/mm3 (1.8-7.7) 09/07/18 05:40 Band Neutrophils # 0.0 K/mm3 09/07/18 05:40 Abs Lymphs (Manual) 3262 cells/uL (850-3900) 08/19/18 14:32 Lymphocytes # (Manual) 0.8 K/mm3 (1.2-5.4) L 09/07/18 05:40 Abs React Lymphs (Man) 0.0 K/mm3 09/07/18 05:40 Monocytes # (Manual) 0.1 K/mm3 (0.0-0.8) 09/07/18 05:40 Eosinophils # (Manual) 0.0 K/mm3 (0.0-0.4) 09/07/18 05:40 Basophils # (Manual) 0.0 K/mm3 (0.0-0.1) 09/07/18 05:40 Metamyelocytes # 0.1 K/mm3 09/07/18 05:40 Myelocytes # 0.1 K/mm3 09/07/18 05:40 Promyelocytes # 0.0 K/mm3 09/07/18 05:40 Blast Cells # 0.0 K/mm3 09/07/18 05:40 WBC Morphology Not Reportable 09/07/18 05:40 Hypersegmented Neuts Not Reportable 09/07/18 05:40 Hyposegmented Neuts Not Reportable 09/07/18 05:40 Hypogranular Neuts Not Reportable 09/07/18 05:40 Smudge Cells Not Reportable 09/07/18 05:40 Toxic Granulation Not Reportable 09/07/18 05:40 Toxic Vacuolation Not Reportable 09/07/18 05:40 Dohle Bodies Not Reportable 09/07/18 05:40 Pelger-Huet Anomaly Not Reportable 09/07/18 05:40 Rosy Rods Not Reportable 09/07/18 05:40 Platelet Estimate Consistent w auto 09/07/18 05:40 Clumped Platelets Not Reportable 09/07/18 05:40 Plt Clumps, EDTA Not Reportable 09/07/18 05:40 Large Platelets Rare 09/07/18 05:40 Giant Platelets Not Reportable 09/07/18 05:40 Platelet Satelliting Not Reportable 09/07/18 05:40 Plt Morphology Comment Not Reportable 09/07/18 05:40 RBC Morphology Not Reportable 09/07/18 05:40 Dimorphic RBCs Not Reportable 09/07/18 05:40 Polychromasia Not Reportable 09/07/18 05:40 Hypochromasia Rare 09/07/18 05:40 Poikilocytosis Not Reportable 09/07/18 05:40 Anisocytosis Few 09/07/18 05:40 Microcytosis Not Reportable 09/07/18 05:40 Macrocytosis Not Reportable 09/07/18 05:40 Spherocytes Not Reportable 09/07/18 05:40 Pappenheimer Bodies Not Reportable 09/07/18 05:40 Sickle Cells Not Reportable 09/07/18 05:40 Target Cells Not Reportable 09/07/18 05:40 Tear Drop Cells Not Reportable 09/07/18 05:40 Ovalocytes Not Reportable 09/07/18 05:40 Helmet Cells Not Reportable 09/07/18 05:40 [place] Bodies Not Reportable 09/07/18 05:40 [place] Rings Not Reportable 09/07/18 05:40 Bertha Cells Not Reportable 09/07/18 05:40 Bite Cells Not Reportable 09/07/18 05:40 Crenated Cell Not Reportable 09/07/18 05:40 Elliptocytes Not Reportable 09/07/18 05:40 Acanthocytes (Spur) Not Reportable 09/07/18 05:40 Rouleaux Not Reportable 09/07/18 05:40 Hemoglobin C Crystals Not Reportable 09/07/18 05:40 Schistocytes Not Reportable 09/07/18 05:40 Malaria parasites Not Reportable 09/07/18 05:40 Ceasar Bodies Not Reportable 09/07/18 05:40 Hem Pathologist Commnt No 09/07/18 05:40 PT 14.2 Sec. (12.2-14.9) 09/14/18 04:55 INR 1.04 (0.87-1.13) 09/14/18 04:55 D-Dimer 2768.33 ng/mlDDU (0-234) H 08/15/18 18:31 Heparin Anti-Xa, Unfract Negative (Negative) 08/22/18 15:29 POC ABG pH 7.516 (7.35-7.45) H 09/24/18 23:24 POC ABG pCO2 37.6 (35-45) 09/24/18 23:24 POC ABG pO2 94 (80-105) 09/24/18 23:24 POC ABG HCO3 30.5 (22-26 mml/L) 09/24/18 23:24 POC ABG Total CO2 32 (23-27mmol/L) 09/24/18 23:24 POC ABG O2 Sat 98 09/24/18 23:24 POC ABG Base Excess 8 ((-2) - (+3)mmol/L) 09/24/18 23:24 VBG pH 7.187 (7.320-7.420) L* 08/15/18 18:19 FiO2 40 % 09/24/18 23:24 Sodium 139 mmol/L (137-145) 09/26/18 04:02 Potassium 4.0 mmol/L (3.6-5.0) 09/26/18 04:02 Chloride 101.6 mmol/L (98-107) 09/26/18 04:02 Carbon Dioxide 27 mmol/L (22-30) 09/26/18 04:02 Anion Gap 14 mmol/L 09/26/18 04:02 BUN 29 mg/dL (7-17) H 09/26/18 04:02 Creatinine 0.5 mg/dL (0.7-1.2) L 09/26/18 04:02 Estimated GFR > 60 ml/min 09/26/18 04:02 BUN/Creatinine Ratio 58 % 09/26/18 04:02 Glucose 141 mg/dL (65-100) H 09/26/18 04:02 POC Glucose 125 (70-105) H 09/26/18 05:04 Hemoglobin A1c 6.4 % (4-6) H 08/15/18 23:09 Lactic Acid 1.20 mmol/L (0.7-2.0) 08/22/18 15:29 Calcium 9.3 mg/dL (8.4-10.2) 09/26/18 04:02 Phosphorus 3.60 mg/dL (2.5-4.5) 09/11/18 01:10 Magnesium 1.70 mg/dL (1.7-2.3) 09/18/18 04:20 Iron 26 ug/dL (37-170) L 09/07/18 05:40 TIBC 150 mcg/dL (250-450) L 09/07/18 05:40 Ferritin 375.0 ng/mL (13.0-400.0) 09/07/18 05:40 Total Bilirubin 0.50 mg/dL (0.1-1.2) 09/14/18 04:55 Direct Bilirubin < 0.2 mg/dL (0-0.2) 09/14/18 04:55 Indirect Bilirubin 0.3 mg/dL 09/14/18 04:55 AST 60 units/L (5-40) H 09/14/18 04:55 ALT 88 units/L (7-56) H 09/14/18 04:55 Alkaline Phosphatase 66 units/L (35-129) 09/14/18 04:55 Troponin T 0.317 ng/mL (0.00-0.029) H* D 08/18/18 13:39 C-Reactive Protein 5.00 mg/dL (0.00-1.30) H 08/25/18 05:20 Total Protein 5.6 g/dL (6.3-8.2) L 09/14/18 04:55 Albumin 2.2 g/dL (3.9-5) L 09/14/18 04:55 Albumin/Globulin Ratio 0.6 % 09/14/18 04:55 Triglycerides 197 mg/dL (2-149) H 08/22/18 06:45 Cholesterol 87 mg/dL (50-199) 08/15/18 18:31 LDL Cholesterol Direct 4 mg/dL (50-130) L 08/15/18 18:31 HDL Cholesterol 10 mg/dL (40-59) L 08/15/18 18:31 Cholesterol/HDL Ratio 8.70 % 08/15/18 18:31 Serotonin Release Assay See scanned results 08/22/18 15:29 Vitamin B12 388.4 pg/mL (211-911) 09/07/18 05:40 Folate 19.01 ng/mL (7.3-26.0) 09/07/18 05:40 Total Cortisol 21.4 mcg/dL () 08/25/18 08:52 Urine Color Straw (Yellow) 09/20/18 16:10 Urine Turbidity Clear (Clear) 09/20/18 16:10 Urine pH 9.0 (5.0-7.0) H 09/20/18 16:10 Ur Specific [place] 1.006 (1.003-1.030) 09/20/18 16:10 Urine Protein <15 mg/dl mg/dL (Negative) 09/20/18 16:10 Urine Glucose (UA) Neg mg/dL (Negative) 09/20/18 16:10 Urine Ketones Neg mg/dL (Negative) 09/20/18 16:10 Urine Blood Lg (Negative) 09/20/18 16:10 Urine Nitrite Neg (Negative) 09/20/18 16:10 Urine Bilirubin Neg (Negative) 09/20/18 16:10 Urine Urobilinogen < 2.0 mg/dL (<2.0) 09/20/18 16:10 Ur Leukocyte Esterase Neg (Negative) 09/20/18 16:10 Urine WBC (Auto) 4.0 /HPF (0.0-6.0) 09/20/18 16:10 Urine RBC (Auto) > 182.0 /HPF (0.0-6.0) 09/20/18 16:10 Urine Bacteria (Auto) 1+ /HPF (Negative) 09/20/18 16:10 Urine WBC Clumps 2+ /HPF 08/15/18 19:15 Amorphous Crystals 1+ 08/15/18 19:15 Hyaline Casts 54 /LPF 08/15/18 19:15 Granular Casts 14 /LPF 08/15/18 19:15 Urine Mucus Few /HPF 09/20/18 16:10 Vancomycin Trough 28.6 ug/mL (5.0-20.0) H 09/06/18 14:40 Salicylates < 0.3 mg/dL (2.8-20.0) L 08/15/18 19:14 Urine Opiates Screen Presumptive positive 08/15/18 19:15 Urine Methadone Screen Presumptive negative 08/15/18 19:15 Acetaminophen < 5.0 ug/mL (10.0-30.0) L 08/15/18 19:14 Ur Barbiturates Screen Presumptive negative 08/15/18 19:15 Ur Phencyclidine Scrn Presumptive negative 08/15/18 19:15 Ur Amphetamines Screen Presumptive negative 08/15/18 19:15 U Benzodiazepines Scrn Presumptive negative 08/15/18 19:15 Urine Cocaine Screen Presumptive negative 08/15/18 19:15 U Marijuana (THC) Screen Presumptive negative 08/15/18 19:15 Drugs of Abuse Note Disclamer 08/15/18 19:15 Heparin-induced Plt Ab Negative (Negative) 08/22/18 15:29 UF Heparin High Dose 0 % Release 08/22/18 15:29 NAZIA UFH Low Dose 0.1 0 % Release 08/22/18 15:29 NAZIA UFH Low Dose 0.5 0 % Release 08/22/18 15:29 Lymph Enumerat CD4/CD8 1.98 (0.86-5.00) 08/19/18 14:32 % CD3 Cells 44 % (57-85) L 08/19/18 14:32 Absolute CD3 Count 1451 cells/uL (840-3060) 08/19/18 14:32 % CD4 Cells 30 % (30-61) 08/19/18 14:32 Absolute CD4 Count 1004 cells/uL (490-1740) 08/19/18 14:32 % CD8 Cells 15 % (12-42) 08/19/18 14:32 Absolute CD8 Count 508 cells/uL (180-1170) 08/19/18 14:32 % CD19 Cells 41 % (6-29) H 08/19/18 14:32 Absolute CD19 Count 1290 cells/uL (110-660) H 08/19/18 14:32 C. difficile Tox (PCR) Negative (Negative) 09/20/18 13:51 C. difficile Toxin A&B Negative (Negative) 08/19/18 14:00 HIV 1&2 Antibody Rapid Non react (Non React) 08/18/18 13:39 HIV P24 Antigen Non react (Non React) 08/18/18 13:39 Miscellaneous Test Flexitest 1 09/15/18 11:35 Blood Type O POSITIVE 09/14/18 12:00 Antibody Screen Negative 09/14/18 12:00 Crossmatch See Detail 09/14/18 12:00 Active Medications - Current Medications Current Medications: Generic Name Dose Route Start Last Admin Trade Name Freq PRN Reason Stop Dose Admin Acetaminophen 650 mg 08/15/18 22:12 09/24/18 00:17 Tylenol PO 650 mg Q4H PRN Administration Pain MILD(1-3)/Fever >100.5/MONDRAGON Albuterol 2.5 mg 08/17/18 17:00 Proventil IH Q3HRT PRN Shortness Of Breath Lipase/Protease/Amylase 1 each 09/17/18 09:06 Pancresam Elizabeth 10,500 Unit FEEDTUBE PRN PRN For Clogged Feeding Tube Apixaban 10 mg 09/22/18 10:00 09/25/18 21:50 Eliquis PO 09/28/18 22:01 10 mg Q12HR LAMAR Administration Apixaban 5 mg 09/29/18 10:00 Eliquis PO Q12HR LAMAR Arformoterol Tartrate 15 mcg 08/18/18 20:00 09/26/18 08:01 Brovana Nebu IH 15 mcg Q12HRT LAMAR Administration Budesonide 0.5 mg 08/18/18 20:00 09/26/18 08:01 Pulmicort IH 0.5 mg Q12HRT LAMAR Administration Carvedilol 3.125 mg 09/20/18 10:00 09/25/18 21:51 Coreg PO 3.125 mg BID LAMAR Administration Clonidine HCl 0.2 mg 09/25/18 10:00 09/25/18 10:47 Catapres-Tts Patch TD 0.2 mg Pearson LAMAR Administration Famotidine 20 mg 09/05/18 10:00 09/25/18 21:51 Pepcid PO 20 mg BID LAMAR Administration Furosemide 20 mg 09/18/18 12:00 09/25/18 10:43 Lasix IV 20 mg QDAY LAMAR Administration Hydralazine HCl 10 mg 08/19/18 13:59 09/19/18 02:27 Apresoline IV 10 mg Q3H PRN Administration Hydralazine HCl 25 mg 09/01/18 14:00 09/26/18 06:06 Apresoline PO 25 mg Q8HR LAMAR Administration Hydromorphone HCl 2 mg 09/06/18 12:00 09/26/18 06:05 Dilaudid PO 2 mg Q6HR LAMAR Administration Hydrophilic Ointment 1 applic 08/15/18 21:55 09/01/18 09:07 Vaseline Lip Therapy TP 1 applic Q2HR PRN Administration Dry Lips Insulin Human Lispro 0 unit 09/04/18 18:00 09/26/18 06:06 Humalog SUB-Q Not Given Q6HR [facility] Protocol Metoclopramide HCl 5 mg 08/15/18 22:50 09/17/18 10:48 Reglan IV 5 mg Q6H PRN Administration Nausea And Vomiting Midazolam HCl 1 mg 09/07/18 09:23 09/26/18 03:36 Versed IV 1 mg Q4H PRN Administration AGITATION Ondansetron HCl 4 mg 08/15/18 22:12 08/31/18 17:52 Zofran IV 4 mg Q8H PRN Administration Nausea And Vomiting Potassium Chloride 40 meq 09/20/18 22:00 09/25/18 21:50 Potassium Chloride PO 40 meq QDAY@2200 LAMAR Administration Quetiapine Fumarate 100 mg 09/19/18 22:00 09/25/18 21:53 Seroquel PO 100 mg BID LAMAR Administration Quetiapine Fumarate 100 mg 09/19/18 22:00 09/24/18 21:48 Seroquel PO 100 mg QHS LAMAR Administration Simethicone 80 mg 09/25/18 17:15 09/25/18 17:32 Mylicon PO 80 mg Q6H PRN Administration Gas pain Simple Syrup 15 ml 09/17/18 09:06 Simple Syrup FEEDTUBE PRN PRN Hypoglycemia Simple Syrup 30 ml 09/17/18 09:06 Simple Syrup FEEDTUBE PRN PRN Hypoglycemia Sodium Bicarbonate 325 mg 09/17/18 09:06 Sodium Bicarbonate FEEDTUBE PRN PRN For Clogged Feeding Tube Sodium Chloride 10 ml 08/15/18 22:12 09/17/18 21:51 Sodium Chloride Flush Syringe 10 Ml IV 10 ml PRN PRN Administration LINE FLUSH Nutrition/Malnutrition Assess - Dietary Evaluation Nutrition/Malnutrition Findings: Nutrition Notes Start: 08/17/18 13:57 Freq: Status: Active Protocol: Document 09/22/18 11:43 SA (Rec: 09/22/18 11:47 SA [id number]) Co-Sign 09/22/18 11:43 LP Nutrition Notes Initial or Follow up Reassessment Current Diagnosis Sepsis,Hypertension,Heart Failure,Respiratory Failure Other Pertinent Diagnosis Dysphagia, bilat LE DVT Current Diet TF - Vital High Protein @ 55 ml/hr Labs/Tests BUN: 21 Cr: 0.6 Pertinent Medications Lasix Humalog Height 5 ft 7 in Weight 93.4 kg Sherrill Body Weight (kg) 61.36 BMI 32.2 Subjective/Other Information PEG placed yesterday. TF running at goal rate and pt tolerating TF. Percent of energy/protein needs met: 100%/94% Burn Absent Trauma Absent #1 Nutrition Diagnosis Inadequate oral intake Diagnosis Progress(for reassessment Continues documentation) Is patient on ventilator? Yes Is Patient Ambulatory and/or Out of Bed No REE-([facility]-confined to bed) 1801.356 Kcal/Kg value to use for calculation 14 Approximate Energy Requirements Using 1308 kcal/Kg Calculation Used for Recommendations Kcal/kg Additional Notes Pro needs 2g/kg IBW: 123g/day Fluid needs 1ml/kcal Nutrition Intervention Nutrition Support: Vital High Protein at 55ml/hr. Provide 50ml water flush q4h. Kcal 1,320 Protein (gm) 116 Fluid (mL) 1,103 Goal #1 TF tolerance Goal #2 TF to meet at least 75% of kcal and pro needs via TF. Anticipated Discharge Needs: unable to determine at this time Follow-Up By: 09/29/18 Additional Comments F/U: TF tolerance
[2018-09-26] MEDS: ELIQUIS PO SCH ×2 (09:41→21:39)
[2018-09-26] MEDS: COREG PO SCH ×2 (09:42→21:39)
[2018-09-26] MEDS: LASIX IV SCH (09:42)
[2018-09-26] MEDS: PEPCID PO SCH ×2 (09:42→21:39)
--- NOTE | 2018-09-26 12:58 | Progress Note ---
Assessment and Plan Severe sepsis with septic shock Intermittent fevers and hypotension -Fungemia s/p Micafungin Acute hypoxic-hypercapnic respiratory failure on NIPPV h/o COPD Acute kidney injury, rising creatinine levels Acute encephalopathy( toxic-metabolic)- much improved Aspiration pneumonia/CAP New onset cardiomyopathy, LVEF 25-30% this admission Previous echo 03/30/2016 at [facility] revealed normal LVEF Previous stress MPI 03/29/2016 at [facility] revealed no ischemia Abnormal ECG showing LBBB, chronic Anemia s/p PRBC with appropriate response -Recent EGD at [facility] 08/08/2018 revealing irregular Z line, gastritis and small hiatal hernia Recent colonoscopy at [facility] 08/08/2018 revealing sigmoid polyp, transverse colon polyps, inflamed hemorrhoids and diverticulosis E.coli/Staph pneumonia Thrombocytopenia resolved -Continue ATP as tolerated -Wean supplemental oxygen to keep O2 sats 88-90% -Oxygen restrictive strategies -Antibiotics/antifungal ,completed course. Continue to monitor clinically -Enteric feeding with aspiration precautions, s/p PEG - agitation and analgesia management -Monitor renal indices -Cardioprotective measures -Stress ulcer prophylaxis -Anticoagulated on Eliquis -Aspiration precautions -Accuchecks with glycemic control. Target glucose of 140-180 mg/dL -Continue bronchodilators with pulmonary hygiene per RT -Maintenance of sleep -wake cycle -Mobility program -Influenza and pneumonia vaccination per protocol ..care plan discussed at length with RN/RT at the bedside Discharge planning Continue all care PROGNOSIS :FAIR CONDITION: FAIR CODE STATUS: FULL CODE Subjective Date of service: 09/26/18 Principal diagnosis: dvt - anemia Interval history: Follow up: Aspiration PNA, Abnormal CXR, Hypotension, Acute renal failure, Acute encephaloapthy, Acute hypoxemic respiratory failure s/p trachesotomy on ATP Seen and examined. Vitals, labs, medications, chart and imaging reviewed. 24 hours events reviewed. s/p trachesotomy to ATP Agitation much improved per RN. No fevers, no vomiting, spontaneous eye opening, moving all extremities Obeying simple commands, interactive Objective Vital Signs - 12hr 09/26/18 09/26/18 09/26/18 01:01 02:01 03:00 Temperature Pulse Rate 78 73 72 Pulse Rate [ Anterior Bilateral] Pulse Rate [ From Monitor] Respiratory 23 14 13 Rate Respiratory Rate [Anterior Bilateral] Blood Pressure 119/53 129/53 139/59 O2 Sat by Pulse 100 100 Oximetry O2 Sat by Pulse Oximetry [ Assessment] 09/26/18 09/26/18 09/26/18 03:01 04:01 04:28 Temperature 98.9 F Pulse Rate 71 Pulse Rate [ Anterior Bilateral] Pulse Rate [ From Monitor] Respiratory 19 Rate Respiratory Rate [Anterior Bilateral] Blood Pressure 120/87 O2 Sat by Pulse 100 Oximetry O2 Sat by Pulse 100 Oximetry [ Assessment] 09/26/18 09/26/18 09/26/18 05:00 06:00 06:06 Temperature Pulse Rate 73 72 73 Pulse Rate [ Anterior Bilateral] Pulse Rate [ From Monitor] Respiratory 19 19 Rate Respiratory Rate [Anterior Bilateral] Blood Pressure 141/63 134/63 134/63 O2 Sat by Pulse 100 100 Oximetry O2 Sat by Pulse Oximetry [ Assessment] 09/26/18 09/26/18 09/26/18 07:01 08:00 08:01 Temperature 98.7 F Pulse Rate 70 71 68 Pulse Rate [ 68 Anterior Bilateral] Pulse Rate [ 65 From Monitor] Respiratory 17 17 11 L Rate Respiratory 12 Rate [Anterior Bilateral] Blood Pressure 112/46 108/38 O2 Sat by Pulse 100 100 98 Oximetry O2 Sat by Pulse Oximetry [ Assessment] 09/26/18 09/26/18 09/26/18 08:20 09:42 12:00 Temperature 98.2 F Pulse Rate 64 Pulse Rate [ 68 Anterior Bilateral] Pulse Rate [ From Monitor] Respiratory Rate Respiratory 18 Rate [Anterior Bilateral] Blood Pressure 103/54 O2 Sat by Pulse Oximetry O2 Sat by Pulse Oximetry [ Assessment] Constitutional: appears uncomfortable, other (elderly looking CF, normocephalic and atraumatic) Eyes: non-icteric ENT: oropharynx moist, other (s/p tracheostomy) Neck: supple, no lymphadenopathy, no JVD, other (no thyromegaly) Effort: normal Ascultation: Bilateral: diminished breath sounds, rales, rhonchi (improved) Percussion: Bilateral: not dull Cardiovascular: regular rate and rhythm Gastrointestinal: normoactive bowel sounds, soft, non-tender, non-distended Integumentary: normal Extremities: no cyanosis, no ischemia or petechiae, edema (Left lower extremity) Neurologic: normal mental status, non-focal exam, pupils equal and round, CN II- XII normal, motor strength normal and Psychiatric: mood appropriate, affect normal CBC and BMP: 09/26/18 04:02 09/26/18 04:02 ABG, PT/INR, D-dimer: ABG POC ABG pH 7.516 (7.35-7.45) H 09/24/18 23:24 POC ABG pCO2 37.6 (35-45) 09/24/18 23:24 POC ABG pO2 94 (80-105) 09/24/18 23:24 POC ABG HCO3 30.5 (22-26 mml/L) 09/24/18 23:24 POC ABG Total CO2 32 (23-27mmol/L) 09/24/18 23:24 POC ABG O2 Sat 98 09/24/18 23:24 PT/INR, D-dimer PT 14.2 Sec. (12.2-14.9) 09/14/18 04:55 INR 1.04 (0.87-1.13) 09/14/18 04:55 D-Dimer 2768.33 ng/mlDDU (0-234) H 08/15/18 18:31 Abnormal lab findings: Abnormal Labs 08/15/18 08/15/18 08/15/18 17:52 17:52 17:52 WBC 12.7 H RBC 3.25 L Hgb Hct RDW Plt Count Lymph % (Auto) [place] % (Auto) Lymph # [place] # Seg Neutrophils % Seg Neuts % (Manual) Lymphocytes % (Manual) 6.0 L Nucleated RBC % Seg Neutrophils # Seg Neutrophils # Man Lymphocytes # (Manual) 0.8 L D-Dimer POC ABG pH POC ABG pCO2 POC ABG pO2 VBG pH Sodium Potassium 3.4 L Chloride 94.6 L Carbon Dioxide 17 L BUN 67 H Creatinine 3.5 H Glucose 131 H POC Glucose Hemoglobin A1c Lactic Acid 5.20 H* Calcium 7.6 L Phosphorus Magnesium Iron TIBC AST 887 H ALT 316 H Troponin T C-Reactive Protein Total Protein Albumin 3.1 L Triglycerides LDL Cholesterol Direct HDL Cholesterol Urine pH Urine WBC (Auto) Vancomycin Trough Salicylates Acetaminophen % CD3 Cells % CD19 Cells Absolute CD19 Count Miscellaneous Test Crossmatch 08/15/18 08/15/18 08/15/18 18:11 18:19 18:31 WBC RBC Hgb Hct RDW Plt Count Lymph % (Auto) [place] % (Auto) Lymph # [place] # Seg Neutrophils % Seg Neuts % (Manual) Lymphocytes % (Manual) Nucleated RBC % Seg Neutrophils # Seg Neutrophils # Man Lymphocytes # (Manual) D-Dimer 2768.33 H POC ABG pH 7.173 L POC ABG pCO2 47.8 H POC ABG pO2 177 H VBG pH 7.187 L* Sodium Potassium Chloride Carbon Dioxide BUN Creatinine Glucose POC Glucose Hemoglobin A1c Lactic Acid Calcium Phosphorus Magnesium Iron TIBC AST ALT Troponin T C-Reactive Protein Total Protein Albumin Triglycerides LDL Cholesterol Direct HDL Cholesterol Urine pH Urine WBC (Auto) Vancomycin Trough Salicylates Acetaminophen % CD3 Cells % CD19 Cells Absolute CD19 Count Miscellaneous Test Crossmatch 08/15/18 08/15/18 08/15/18 18:31 19:14 19:14 WBC RBC Hgb Hct RDW Plt Count Lymph % (Auto) [place] % (Auto) Lymph # [place] # Seg Neutrophils % Seg Neuts % (Manual) Lymphocytes % (Manual) Nucleated RBC % Seg Neutrophils # Seg Neutrophils # Man Lymphocytes # (Manual) D-Dimer POC ABG pH POC ABG pCO2 POC ABG pO2 VBG pH Sodium Potassium Chloride Carbon Dioxide BUN Creatinine Glucose POC Glucose Hemoglobin A1c Lactic Acid 2.70 H* Calcium Phosphorus Magnesium Iron TIBC AST ALT Troponin T 0.454 H* C-Reactive Protein Total Protein Albumin Triglycerides 356 H LDL Cholesterol Direct 4 L HDL Cholesterol 10 L Urine pH Urine WBC (Auto) Vancomycin Trough Salicylates < 0.3 L Acetaminophen % CD3 Cells % CD19 Cells Absolute CD19 Count Miscellaneous Test Crossmatch 08/15/18 08/15/18 08/15/18 19:14 19:15 23:09 WBC RBC Hgb Hct RDW Plt Count Lymph % (Auto) [place] % (Auto) Lymph # [place] # Seg Neutrophils % Seg Neuts % (Manual) Lymphocytes % (Manual) Nucleated RBC % Seg Neutrophils # Seg Neutrophils # Man Lymphocytes # (Manual) D-Dimer POC ABG pH POC ABG pCO2 POC ABG pO2 VBG pH Sodium Potassium Chloride Carbon Dioxide BUN Creatinine Glucose POC Glucose Hemoglobin A1c Lactic Acid 3.20 H* Calcium Phosphorus Magnesium Iron TIBC AST ALT Troponin T C-Reactive Protein Total Protein Albumin Triglycerides LDL Cholesterol Direct HDL Cholesterol Urine pH Urine WBC (Auto) 17.0 H Vancomycin Trough Salicylates Acetaminophen < 5.0 L % CD3 Cells % CD19 Cells Absolute CD19 Count Miscellaneous Test Crossmatch 08/15/18 08/16/18 08/16/18 23:09 01:41 05:38 WBC RBC 3.07 L Hgb 9.8 L Hct 28.7 L RDW Plt Count Lymph % (Auto) [place] % (Auto) Lymph # [place] # Seg Neutrophils % Seg Neuts % (Manual) 84.0 H Lymphocytes % (Manual) 6.0 L Nucleated RBC % 4.0 H Seg Neutrophils # Seg Neutrophils # Man Lymphocytes # (Manual) 0.5 L D-Dimer POC ABG pH 7.323 L POC ABG pCO2 34.7 L POC ABG pO2 78 L VBG pH Sodium Potassium Chloride Carbon Dioxide BUN Creatinine Glucose POC Glucose Hemoglobin A1c 6.4 H Lactic Acid Calcium Phosphorus Magnesium Iron TIBC AST ALT Troponin T C-Reactive Protein Total Protein Albumin Triglycerides LDL Cholesterol Direct HDL Cholesterol Urine pH Urine WBC (Auto) Vancomycin Trough Salicylates Acetaminophen % CD3 Cells % CD19 Cells Absolute CD19 Count Miscellaneous Test Crossmatch 08/16/18 08/16/18 08/17/18 05:38 22:43 03:42 WBC RBC Hgb Hct RDW Plt Count Lymph % (Auto) [place] % (Auto) Lymph # [place] # Seg Neutrophils % Seg Neuts % (Manual) Lymphocytes % (Manual) Nucleated RBC % Seg Neutrophils # Seg Neutrophils # Man Lymphocytes # (Manual) D-Dimer POC ABG pH POC ABG pCO2 POC ABG pO2 VBG pH Sodium Potassium 2.9 L* 3.1 L 2.9 L* Chloride 108.8 H 111.9 H Carbon Dioxide 17 L 19 L 21 L BUN 62 H 40 H 33 H Creatinine 2.0 H Glucose 139 H 145 H POC Glucose Hemoglobin A1c Lactic Acid Calcium 7.8 L 8.3 L Phosphorus 1.50 L Magnesium Iron TIBC AST 619 H ALT 353 H Troponin T C-Reactive Protein Total Protein 6.1 L Albumin 2.8 L Triglycerides LDL Cholesterol Direct HDL Cholesterol Urine pH Urine WBC (Auto) Vancomycin Trough Salicylates Acetaminophen % CD3 Cells % CD19 Cells Absolute CD19 Count Miscellaneous Test Crossmatch 08/17/18 08/17/18 08/18/18 11:02 16:42 03:28 WBC RBC Hgb Hct RDW Plt Count Lymph % (Auto) [place] % (Auto) Lymph # [place] # Seg Neutrophils % Seg Neuts % (Manual) Lymphocytes % (Manual) Nucleated RBC % Seg Neutrophils # Seg Neutrophils # Man Lymphocytes # (Manual) D-Dimer POC ABG pH 7.483 H 7.499 H POC ABG pCO2 POC ABG pO2 VBG pH Sodium 147 H Potassium 3.2 L Chloride 115.8 H Carbon Dioxide BUN 23 H Creatinine Glucose 121 H POC Glucose Hemoglobin A1c Lactic Acid Calcium 8.1 L Phosphorus 2.30 L D Magnesium Iron TIBC AST ALT Troponin T C-Reactive Protein Total Protein Albumin Triglycerides LDL Cholesterol Direct HDL Cholesterol Urine pH Urine WBC (Auto) Vancomycin Trough Salicylates Acetaminophen % CD3 Cells % CD19 Cells Absolute CD19 Count Miscellaneous Test Crossmatch 08/18/18 08/18/18 08/18/18 04:10 13:39 13:39 WBC RBC Hgb Hct RDW Plt Count Lymph % (Auto) [place] % (Auto) Lymph # [place] # Seg Neutrophils % Seg Neuts % (Manual) Lymphocytes % (Manual) Nucleated RBC % Seg Neutrophils # Seg Neutrophils # Man Lymphocytes # (Manual) D-Dimer POC ABG pH POC ABG pCO2 POC ABG pO2 VBG pH Sodium 147 H Potassium 3.3 L Chloride 111.9 H Carbon Dioxide BUN 21 H Creatinine Glucose 113 H POC Glucose Hemoglobin A1c Lactic Acid Calcium Phosphorus 1.50 L D Magnesium Iron TIBC AST ALT Troponin T 0.317 H* D C-Reactive Protein 10.70 H Total Protein Albumin Triglycerides LDL Cholesterol Direct HDL Cholesterol Urine pH Urine WBC (Auto) Vancomycin Trough Salicylates Acetaminophen % CD3 Cells % CD19 Cells Absolute CD19 Count Miscellaneous Test Crossmatch 08/18/18 08/19/18 08/19/18 16:51 03:47 04:15 WBC RBC Hgb Hct RDW Plt Count Lymph % (Auto) [place] % (Auto) Lymph # [place] # Seg Neutrophils % Seg Neuts % (Manual) Lymphocytes % (Manual) Nucleated RBC % Seg Neutrophils # Seg Neutrophils # Man Lymphocytes # (Manual) D-Dimer POC ABG pH 7.454 H 7.482 H POC ABG pCO2 POC ABG pO2 65 L VBG pH Sodium 154 H Potassium 3.3 L Chloride 115.1 H Carbon Dioxide BUN 19 H Creatinine Glucose 117 H POC Glucose Hemoglobin A1c Lactic Acid Calcium 7.8 L Phosphorus Magnesium Iron TIBC AST ALT Troponin T C-Reactive Protein Total Protein Albumin Triglycerides LDL Cholesterol Direct HDL Cholesterol Urine pH Urine WBC (Auto) Vancomycin Trough Salicylates Acetaminophen % CD3 Cells % CD19 Cells Absolute CD19 Count Miscellaneous Test Crossmatch 08/19/18 08/19/18 08/20/18 14:32 16:18 03:51 WBC RBC Hgb Hct RDW Plt Count Lymph % (Auto) [place] % (Auto) Lymph # [place] # Seg Neutrophils % Seg Neuts % (Manual) Lymphocytes % (Manual) Nucleated RBC % Seg Neutrophils # Seg Neutrophils # Man Lymphocytes # (Manual) D-Dimer POC ABG pH 7.483 H POC ABG pCO2 33.4 L POC ABG pO2 51 L 74 L VBG pH Sodium Potassium Chloride Carbon Dioxide BUN Creatinine Glucose POC Glucose Hemoglobin A1c Lactic Acid Calcium Phosphorus Magnesium Iron TIBC AST ALT Troponin T C-Reactive Protein Total Protein Albumin Triglycerides LDL Cholesterol Direct HDL Cholesterol Urine pH Urine WBC (Auto) Vancomycin Trough Salicylates Acetaminophen % CD3 Cells 44 L % CD19 Cells 41 H Absolute CD19 Count 1290 H Miscellaneous Test Crossmatch 08/20/18 08/21/18 08/21/18 05:25 03:54 05:45 WBC 24.1 H RBC 2.83 L Hgb 8.8 L Hct 26.7 L RDW 15.7 H Plt Count 127 L Lymph % (Auto) [place] % (Auto) Lymph # [place] # Seg Neutrophils % Seg Neuts % (Manual) 94.0 H Lymphocytes % (Manual) 4.0 L Nucleated RBC % 1.0 H Seg Neutrophils # Seg Neutrophils # Man 22.7 H Lymphocytes # (Manual) 1.0 L D-Dimer POC ABG pH POC ABG pCO2 31.9 L POC ABG pO2 66 L VBG pH Sodium 146 H D Potassium Chloride 111.2 H Carbon Dioxide BUN 24 H Creatinine Glucose 141 H POC Glucose Hemoglobin A1c Lactic Acid Calcium 8.1 L Phosphorus Magnesium Iron TIBC AST 65 H ALT 104 H Troponin T C-Reactive Protein Total Protein 6.2 L Albumin 2.6 L Triglycerides LDL Cholesterol Direct HDL Cholesterol Urine pH Urine WBC (Auto) Vancomycin Trough Salicylates Acetaminophen % CD3 Cells % CD19 Cells Absolute CD19 Count Miscellaneous Test Crossmatch 08/21/18 08/22/18 08/22/18 05:45 06:20 06:45 WBC RBC Hgb Hct RDW Plt Count Lymph % (Auto) [place] % (Auto) Lymph # [place] # Seg Neutrophils % Seg Neuts % (Manual) Lymphocytes % (Manual) Nucleated RBC % Seg Neutrophils # Seg Neutrophils # Man Lymphocytes # (Manual) D-Dimer POC ABG pH POC ABG pCO2 32.9 L POC ABG pO2 VBG pH Sodium Potassium 3.5 L Chloride 109.4 H 112.4 H Carbon Dioxide 21 L 20 L BUN 50 H 61 H Creatinine 2.0 H D 1.9 H Glucose 144 H 154 H POC Glucose Hemoglobin A1c Lactic Acid Calcium 7.6 L 7.8 L Phosphorus Magnesium Iron TIBC AST ALT Troponin T C-Reactive Protein Total Protein 5.3 L Albumin 2.1 L Triglycerides LDL Cholesterol Direct HDL Cholesterol Urine pH Urine WBC (Auto) Vancomycin Trough Salicylates Acetaminophen % CD3 Cells % CD19 Cells Absolute CD19 Count Miscellaneous Test Crossmatch 08/22/18 08/22/18 08/22/18 06:45 15:29 18:40 WBC RBC Hgb Hct RDW Plt Count Lymph % (Auto) [place] % (Auto) Lymph # [place] # Seg Neutrophils % Seg Neuts % (Manual) Lymphocytes % (Manual) Nucleated RBC % Seg Neutrophils # Seg Neutrophils # Man Lymphocytes # (Manual) D-Dimer POC ABG pH POC ABG pCO2 POC ABG pO2 VBG pH Sodium Potassium Chloride Carbon Dioxide BUN Creatinine Glucose POC Glucose 169 H Hemoglobin A1c Lactic Acid Calcium Phosphorus Magnesium Iron TIBC AST ALT Troponin T C-Reactive Protein 4.70 H Total Protein Albumin Triglycerides 197 H LDL Cholesterol Direct HDL Cholesterol Urine pH Urine WBC (Auto) Vancomycin Trough Salicylates Acetaminophen % CD3 Cells % CD19 Cells Absolute CD19 Count Miscellaneous Test Crossmatch 08/23/18 08/23/18 08/23/18 03:59 21:19 Unknown WBC 12.1 H RBC 2.29 L Hgb 7.1 L Hct 21.7 L RDW 15.7 H Plt Count 106 L Lymph % (Auto) [place] % (Auto) Lymph # [place] # Seg Neutrophils % Seg Neuts % (Manual) 92.0 H Lymphocytes % (Manual) 4.0 L Nucleated RBC % Seg Neutrophils # Seg Neutrophils # Man 11.1 H Lymphocytes # (Manual) 0.5 L D-Dimer POC ABG pH 7.306 L POC ABG pCO2 31.3 L POC ABG pO2 119 H 75 L VBG pH Sodium Potassium Chloride Carbon Dioxide BUN Creatinine Glucose POC Glucose Hemoglobin A1c Lactic Acid Calcium Phosphorus Magnesium Iron TIBC AST ALT Troponin T C-Reactive Protein Total Protein Albumin Triglycerides LDL Cholesterol Direct HDL Cholesterol Urine pH Urine WBC (Auto) Vancomycin Trough Salicylates Acetaminophen % CD3 Cells % CD19 Cells Absolute CD19 Count Miscellaneous Test Crossmatch 08/23/18 08/24/18 08/24/18 Unknown 04:18 08:30 WBC 12.8 H RBC 2.24 L Hgb 7.0 L Hct 21.1 L RDW Plt Count Lymph % (Auto) [place] % (Auto) Lymph # [place] # Seg Neutrophils % Seg Neuts % (Manual) 93.0 H Lymphocytes % (Manual) 6.0 L Nucleated RBC % Seg Neutrophils # Seg Neutrophils # Man 11.9 H Lymphocytes # (Manual) 0.8 L D-Dimer POC ABG pH POC ABG pCO2 POC ABG pO2 78 L VBG pH Sodium Potassium Chloride 115.7 H Carbon Dioxide 21 L BUN 64 H Creatinine 2.0 H Glucose 149 H POC Glucose Hemoglobin A1c Lactic Acid Calcium 7.5 L Phosphorus Magnesium Iron TIBC AST ALT Troponin T C-Reactive Protein Total Protein 4.8 L Albumin 2.0 L Triglycerides LDL Cholesterol Direct HDL Cholesterol Urine pH Urine WBC (Auto) Vancomycin Trough Salicylates Acetaminophen % CD3 Cells % CD19 Cells Absolute CD19 Count Miscellaneous Test Crossmatch 08/24/18 08/24/18 08/24/18 08:30 17:44 18:28 WBC RBC Hgb Hct RDW Plt Count Lymph % (Auto) [place] % (Auto) Lymph # [place] # Seg Neutrophils % Seg Neuts % (Manual) Lymphocytes % (Manual) Nucleated RBC % Seg Neutrophils # Seg Neutrophils # Man Lymphocytes # (Manual) D-Dimer POC ABG pH 7.474 H POC ABG pCO2 POC ABG pO2 61 L VBG pH Sodium Potassium Chloride 108.3 H Carbon Dioxide 20 L BUN 65 H Creatinine 2.0 H Glucose 167 H POC Glucose 164 H Hemoglobin A1c Lactic Acid Calcium 7.7 L Phosphorus Magnesium Iron TIBC AST ALT Troponin T C-Reactive Protein Total Protein 5.3 L Albumin 2.2 L Triglycerides LDL Cholesterol Direct HDL Cholesterol Urine pH Urine WBC (Auto) Vancomycin Trough Salicylates Acetaminophen % CD3 Cells % CD19 Cells Absolute CD19 Count Miscellaneous Test Crossmatch 08/25/18 08/25/18 08/25/18 03:35 05:20 05:20 WBC RBC Hgb 6.7 L Hct 21.0 L RDW Plt Count Lymph % (Auto) [place] % (Auto) Lymph # [place] # Seg Neutrophils % Seg Neuts % (Manual) Lymphocytes % (Manual) Nucleated RBC % Seg Neutrophils # Seg Neutrophils # Man Lymphocytes # (Manual) D-Dimer POC ABG pH POC ABG pCO2 POC ABG pO2 79 L VBG pH Sodium Potassium Chloride Carbon Dioxide 21 L BUN 71 H Creatinine 3.1 H D Glucose 171 H POC Glucose Hemoglobin A1c Lactic Acid Calcium 7.5 L Phosphorus Magnesium Iron TIBC AST ALT Troponin T C-Reactive Protein Total Protein Albumin Triglycerides LDL Cholesterol Direct HDL Cholesterol Urine pH Urine WBC (Auto) Vancomycin Trough Salicylates Acetaminophen % CD3 Cells % CD19 Cells Absolute CD19 Count Miscellaneous Test Crossmatch 08/25/18 08/25/18 08/25/18 05:20 08:52 12:42 WBC RBC Hgb Hct RDW Plt Count Lymph % (Auto) [place] % (Auto) Lymph # [place] # Seg Neutrophils % Seg Neuts % (Manual) Lymphocytes % (Manual) Nucleated RBC % Seg Neutrophils # Seg Neutrophils # Man Lymphocytes # (Manual) D-Dimer POC ABG pH POC ABG pCO2 POC ABG pO2 VBG pH Sodium Potassium Chloride Carbon Dioxide BUN Creatinine Glucose POC Glucose 166 H Hemoglobin A1c Lactic Acid Calcium Phosphorus Magnesium Iron TIBC AST ALT Troponin T C-Reactive Protein 5.00 H Total Protein Albumin Triglycerides LDL Cholesterol Direct HDL Cholesterol Urine pH Urine WBC (Auto) Vancomycin Trough Salicylates Acetaminophen % CD3 Cells % CD19 Cells Absolute CD19 Count Miscellaneous Test Crossmatch See Detail 08/25/18 08/26/18 08/26/18 18:05 00:13 04:53 WBC RBC Hgb Hct RDW Plt Count Lymph % (Auto) [place] % (Auto) Lymph # [place] # Seg Neutrophils % Seg Neuts % (Manual) Lymphocytes % (Manual) Nucleated RBC % Seg Neutrophils # Seg Neutrophils # Man Lymphocytes # (Manual) D-Dimer POC ABG pH POC ABG pCO2 30.9 L POC ABG pO2 70 L VBG pH Sodium Potassium Chloride Carbon Dioxide BUN Creatinine Glucose POC Glucose 121 H 164 H Hemoglobin A1c Lactic Acid Calcium Phosphorus Magnesium Iron TIBC AST ALT Troponin T C-Reactive Protein Total Protein Albumin Triglycerides LDL Cholesterol Direct HDL Cholesterol Urine pH Urine WBC (Auto) Vancomycin Trough Salicylates Acetaminophen % CD3 Cells % CD19 Cells Absolute CD19 Count Miscellaneous Test Crossmatch 08/26/18 08/26/18 08/26/18 05:42 06:00 06:00 WBC RBC 2.62 L Hgb 7.7 L Hct 23.0 L RDW 22.0 H Plt Count Lymph % (Auto) 6.3 L [place] % (Auto) Lymph # 0.7 L [place] # Seg Neutrophils % 88.1 H Seg Neuts % (Manual) Lymphocytes % (Manual) Nucleated RBC % Seg Neutrophils # 9.6 H Seg Neutrophils # Man Lymphocytes # (Manual) D-Dimer POC ABG pH POC ABG pCO2 POC ABG pO2 VBG pH Sodium Potassium Chloride Carbon Dioxide 21 L BUN 70 H Creatinine 3.3 H Glucose 146 H POC Glucose 149 H Hemoglobin A1c Lactic Acid Calcium 8.0 L Phosphorus Magnesium Iron TIBC AST ALT Troponin T C-Reactive Protein Total Protein Albumin Triglycerides LDL Cholesterol Direct HDL Cholesterol Urine pH Urine WBC (Auto) Vancomycin Trough Salicylates Acetaminophen % CD3 Cells % CD19 Cells Absolute CD19 Count Miscellaneous Test Crossmatch 08/26/18 08/26/18 08/27/18 11:37 23:54 04:35 WBC RBC 2.50 L Hgb 7.6 L Hct 22.3 L RDW 21.8 H Plt Count Lymph % (Auto) 7.3 L [place] % (Auto) Lymph # 0.7 L [place] # Seg Neutrophils % 85.6 H Seg Neuts % (Manual) Lymphocytes % (Manual) Nucleated RBC % Seg Neutrophils # 8.6 H Seg Neutrophils # Man Lymphocytes # (Manual) D-Dimer POC ABG pH POC ABG pCO2 POC ABG pO2 VBG pH Sodium Potassium Chloride Carbon Dioxide BUN Creatinine Glucose POC Glucose 183 H 150 H Hemoglobin A1c Lactic Acid Calcium Phosphorus Magnesium Iron TIBC AST ALT Troponin T C-Reactive Protein Total Protein Albumin Triglycerides LDL Cholesterol Direct HDL Cholesterol Urine pH Urine WBC (Auto) Vancomycin Trough Salicylates Acetaminophen % CD3 Cells % CD19 Cells Absolute CD19 Count Miscellaneous Test Crossmatch 08/27/18 08/27/18 08/28/18 04:35 12:17 04:43 WBC RBC Hgb Hct RDW Plt Count Lymph % (Auto) [place] % (Auto) Lymph # [place] # Seg Neutrophils % Seg Neuts % (Manual) Lymphocytes % (Manual) Nucleated RBC % Seg Neutrophils # Seg Neutrophils # Man Lymphocytes # (Manual) D-Dimer POC ABG pH POC ABG pCO2 32.1 L 33.8 L POC ABG pO2 68 L 78 L VBG pH Sodium Potassium Chloride Carbon Dioxide 19 L BUN 67 H Creatinine 2.9 H Glucose 155 H POC Glucose Hemoglobin A1c Lactic Acid Calcium Phosphorus 4.70 H Magnesium Iron TIBC AST ALT Troponin T C-Reactive Protein Total Protein Albumin Triglycerides LDL Cholesterol Direct HDL Cholesterol Urine pH Urine WBC (Auto) Vancomycin Trough Salicylates Acetaminophen % CD3 Cells % CD19 Cells Absolute CD19 Count Miscellaneous Test Crossmatch 08/28/18 08/28/18 08/28/18 05:03 05:20 05:20 WBC RBC 2.43 L Hgb 7.4 L Hct 21.8 L RDW 20.8 H Plt Count Lymph % (Auto) 7.6 L [place] % (Auto) 8.7 H Lymph # 0.7 L [place] # Seg Neutrophils % 82.9 H Seg Neuts % (Manual) Lymphocytes % (Manual) Nucleated RBC % Seg Neutrophils # Seg Neutrophils # Man Lymphocytes # (Manual) D-Dimer POC ABG pH POC ABG pCO2 POC ABG pO2 VBG pH Sodium Potassium Chloride 107.8 H Carbon Dioxide 21 L BUN 55 H Creatinine 2.0 H Glucose 177 H POC Glucose 160 H Hemoglobin A1c Lactic Acid Calcium Phosphorus Magnesium Iron TIBC AST ALT Troponin T C-Reactive Protein Total Protein Albumin Triglycerides LDL Cholesterol Direct HDL Cholesterol Urine pH Urine WBC (Auto) Vancomycin Trough Salicylates Acetaminophen % CD3 Cells % CD19 Cells Absolute CD19 Count Miscellaneous Test Crossmatch 08/28/18 08/28/18 08/28/18 12:18 18:58 22:31 WBC RBC Hgb Hct RDW Plt Count Lymph % (Auto) [place] % (Auto) Lymph # [place] # Seg Neutrophils % Seg Neuts % (Manual) Lymphocytes % (Manual) Nucleated RBC % Seg Neutrophils # Seg Neutrophils # Man Lymphocytes # (Manual) D-Dimer POC ABG pH POC ABG pCO2 34.4 L POC ABG pO2 67 L VBG pH Sodium Potassium Chloride Carbon Dioxide BUN Creatinine Glucose POC Glucose 164 H 149 H Hemoglobin A1c Lactic Acid Calcium Phosphorus Magnesium Iron TIBC AST ALT Troponin T C-Reactive Protein Total Protein Albumin Triglycerides LDL Cholesterol Direct HDL Cholesterol Urine pH Urine WBC (Auto) Vancomycin Trough Salicylates Acetaminophen % CD3 Cells % CD19 Cells Absolute CD19 Count Miscellaneous Test Crossmatch 08/28/18 08/29/18 08/29/18 23:33 05:25 05:25 WBC RBC 2.30 L Hgb 7.0 L Hct 20.9 L RDW 21.0 H Plt Count Lymph % (Auto) 11.5 L [place] % (Auto) 9.2 H Lymph # 0.8 L [place] # Seg Neutrophils % 78.8 H Seg Neuts % (Manual) Lymphocytes % (Manual) Nucleated RBC % Seg Neutrophils # Seg Neutrophils # Man Lymphocytes # (Manual) D-Dimer POC ABG pH POC ABG pCO2 POC ABG pO2 VBG pH Sodium Potassium Chloride 111.1 H Carbon Dioxide BUN 55 H Creatinine 1.8 H Glucose 162 H POC Glucose 143 H Hemoglobin A1c Lactic Acid Calcium Phosphorus Magnesium Iron TIBC AST 46 H ALT < 5 L Troponin T C-Reactive Protein Total Protein 5.7 L Albumin 2.1 L Triglycerides LDL Cholesterol Direct HDL Cholesterol Urine pH Urine WBC (Auto) Vancomycin Trough Salicylates Acetaminophen % CD3 Cells % CD19 Cells Absolute CD19 Count Miscellaneous Test Crossmatch 08/29/18 08/29/18 08/30/18 18:19 23:35 05:03 WBC RBC Hgb Hct RDW Plt Count Lymph % (Auto) [place] % (Auto) Lymph # [place] # Seg Neutrophils % Seg Neuts % (Manual) Lymphocytes % (Manual) Nucleated RBC % Seg Neutrophils # Seg Neutrophils # Man Lymphocytes # (Manual) D-Dimer POC ABG pH POC ABG pCO2 POC ABG pO2 VBG pH Sodium Potassium Chloride Carbon Dioxide BUN Creatinine Glucose POC Glucose 155 H 139 H 122 H Hemoglobin A1c Lactic Acid Calcium Phosphorus Magnesium Iron TIBC AST ALT Troponin T C-Reactive Protein Total Protein Albumin Triglycerides LDL Cholesterol Direct HDL Cholesterol Urine pH Urine WBC (Auto) Vancomycin Trough Salicylates Acetaminophen % CD3 Cells % CD19 Cells Absolute CD19 Count Miscellaneous Test Crossmatch 08/30/18 08/30/18 08/30/18 09:33 09:33 09:54 WBC RBC 2.58 L Hgb 7.9 L Hct 23.5 L RDW 20.9 H Plt Count Lymph % (Auto) 8.0 L [place] % (Auto) 9.7 H Lymph # 0.8 L [place] # 1.0 H Seg Neutrophils % 82.1 H Seg Neuts % (Manual) Lymphocytes % (Manual) Nucleated RBC % Seg Neutrophils # 8.2 H Seg Neutrophils # Man Lymphocytes # (Manual) D-Dimer POC ABG pH POC ABG pCO2 POC ABG pO2 VBG pH Sodium 146 H Potassium Chloride 110.7 H Carbon Dioxide BUN 56 H Creatinine 1.9 H Glucose 145 H POC Glucose Hemoglobin A1c Lactic Acid Calcium Phosphorus 4.60 H Magnesium Iron TIBC AST ALT < 5 L Troponin T C-Reactive Protein Total Protein Albumin 2.7 L Triglycerides LDL Cholesterol Direct HDL Cholesterol Urine pH Urine WBC (Auto) Vancomycin Trough Salicylates Acetaminophen % CD3 Cells % CD19 Cells Absolute CD19 Count Miscellaneous Test Flexitest 1 H Crossmatch 08/30/18 08/30/18 08/30/18 09:57 11:26 18:08 WBC RBC Hgb Hct RDW Plt Count Lymph % (Auto) [place] % (Auto) Lymph # [place] # Seg Neutrophils % Seg Neuts % (Manual) Lymphocytes % (Manual) Nucleated RBC % Seg Neutrophils # Seg Neutrophils # Man Lymphocytes # (Manual) D-Dimer POC ABG pH POC ABG pCO2 POC ABG pO2 VBG pH Sodium Potassium Chloride Carbon Dioxide BUN Creatinine Glucose POC Glucose 149 H 156 H Hemoglobin A1c Lactic Acid Calcium Phosphorus Magnesium Iron TIBC AST ALT Troponin T C-Reactive Protein Total Protein Albumin Triglycerides LDL Cholesterol Direct HDL Cholesterol Urine pH Urine WBC (Auto) Vancomycin Trough Salicylates Acetaminophen % CD3 Cells % CD19 Cells Absolute CD19 Count Miscellaneous Test Flexitest 1 H Crossmatch 08/30/18 08/31/18 08/31/18 23:14 05:16 08:40 WBC RBC Hgb Hct RDW Plt Count Lymph % (Auto) [place] % (Auto) Lymph # [place] # Seg Neutrophils % Seg Neuts % (Manual) Lymphocytes % (Manual) Nucleated RBC % Seg Neutrophils # Seg Neutrophils # Man Lymphocytes # (Manual) D-Dimer POC ABG pH POC ABG pCO2 POC ABG pO2 VBG pH Sodium 151 H Potassium Chloride 113.8 H Carbon Dioxide BUN 45 H Creatinine Glucose 144 H POC Glucose 117 H 133 H Hemoglobin A1c Lactic Acid Calcium Phosphorus Magnesium Iron TIBC AST ALT Troponin T C-Reactive Protein Total Protein Albumin Triglycerides LDL Cholesterol Direct HDL Cholesterol Urine pH Urine WBC (Auto) Vancomycin Trough Salicylates Acetaminophen % CD3 Cells % CD19 Cells Absolute CD19 Count Miscellaneous Test Crossmatch 08/31/18 09/01/18 09/01/18 23:46 04:45 04:45 WBC RBC 2.38 L Hgb 7.3 L Hct 22.1 L RDW 21.1 H Plt Count Lymph % (Auto) [place] % (Auto) Lymph # [place] # Seg Neutrophils % Seg Neuts % (Manual) 93.0 H Lymphocytes % (Manual) 4.0 L Nucleated RBC % Seg Neutrophils # Seg Neutrophils # Man 10.1 H Lymphocytes # (Manual) 0.4 L D-Dimer POC ABG pH POC ABG pCO2 POC ABG pO2 VBG pH Sodium 156 H Potassium 3.1 L Chloride 115.2 H Carbon Dioxide BUN 34 H Creatinine Glucose 125 H POC Glucose 124 H Hemoglobin A1c Lactic Acid Calcium Phosphorus Magnesium Iron TIBC AST ALT Troponin T C-Reactive Protein Total Protein Albumin Triglycerides LDL Cholesterol Direct HDL Cholesterol Urine pH Urine WBC (Auto) Vancomycin Trough Salicylates Acetaminophen % CD3 Cells % CD19 Cells Absolute CD19 Count Miscellaneous Test Crossmatch 09/01/18 09/01/18 09/01/18 05:34 11:20 17:52 WBC RBC Hgb Hct RDW Plt Count Lymph % (Auto) [place] % (Auto) Lymph # [place] # Seg Neutrophils % Seg Neuts % (Manual) Lymphocytes % (Manual) Nucleated RBC % Seg Neutrophils # Seg Neutrophils # Man Lymphocytes # (Manual) D-Dimer POC ABG pH 7.553 H POC ABG pCO2 POC ABG pO2 74 L VBG pH Sodium Potassium Chloride Carbon Dioxide BUN Creatinine Glucose POC Glucose 128 H 146 H Hemoglobin A1c Lactic Acid Calcium Phosphorus Magnesium Iron TIBC AST ALT Troponin T C-Reactive Protein Total Protein Albumin Triglycerides LDL Cholesterol Direct HDL Cholesterol Urine pH Urine WBC (Auto) Vancomycin Trough Salicylates Acetaminophen % CD3 Cells % CD19 Cells Absolute CD19 Count Miscellaneous Test Crossmatch 09/01/18 09/02/18 09/02/18 17:52 04:13 04:58 WBC 16.4 H RBC 2.64 L Hgb 7.9 L Hct 24.3 L RDW 20.8 H Plt Count Lymph % (Auto) [place] % (Auto) Lymph # [place] # Seg Neutrophils % Seg Neuts % (Manual) 96.0 H Lymphocytes % (Manual) 1.0 L Nucleated RBC % Seg Neutrophils # Seg Neutrophils # Man 15.7 H Lymphocytes # (Manual) 0.2 L D-Dimer POC ABG pH 7.488 H POC ABG pCO2 POC ABG pO2 63 L VBG pH Sodium Potassium Chloride Carbon Dioxide BUN Creatinine Glucose POC Glucose 143 H Hemoglobin A1c Lactic Acid Calcium Phosphorus Magnesium Iron TIBC AST ALT Troponin T C-Reactive Protein Total Protein Albumin Triglycerides LDL Cholesterol Direct HDL Cholesterol Urine pH Urine WBC (Auto) Vancomycin Trough Salicylates Acetaminophen % CD3 Cells % CD19 Cells Absolute CD19 Count Miscellaneous Test Crossmatch 09/02/18 09/02/18 09/02/18 04:58 11:03 18:18 WBC RBC Hgb Hct RDW Plt Count Lymph % (Auto) [place] % (Auto) Lymph # [place] # Seg Neutrophils % Seg Neuts % (Manual) Lymphocytes % (Manual) Nucleated RBC % Seg Neutrophils # Seg Neutrophils # Man Lymphocytes # (Manual) D-Dimer POC ABG pH 7.344 L POC ABG pCO2 52.8 H POC ABG pO2 VBG pH Sodium 158 H Potassium 2.9 L* Chloride 115.7 H Carbon Dioxide BUN 27 H Creatinine 0.6 L Glucose 128 H POC Glucose 121 H Hemoglobin A1c Lactic Acid Calcium Phosphorus Magnesium 1.60 L Iron TIBC AST 64 H ALT Troponin T C-Reactive Protein Total Protein Albumin 2.6 L Triglycerides LDL Cholesterol Direct HDL Cholesterol Urine pH Urine WBC (Auto) Vancomycin Trough Salicylates Acetaminophen % CD3 Cells % CD19 Cells Absolute CD19 Count Miscellaneous Test Crossmatch 09/02/18 09/03/18 09/03/18 23:06 03:36 04:25 WBC RBC 2.20 L Hgb 6.7 L Hct 20.9 L RDW 21.1 H Plt Count Lymph % (Auto) [place] % (Auto) Lymph # [place] # Seg Neutrophils % Seg Neuts % (Manual) 90.0 H Lymphocytes % (Manual) 5.0 L Nucleated RBC % Seg Neutrophils # Seg Neutrophils # Man 8.7 H Lymphocytes # (Manual) 0.5 L D-Dimer POC ABG pH POC ABG pCO2 POC ABG pO2 54 L VBG pH Sodium Potassium Chloride Carbon Dioxide BUN Creatinine Glucose POC Glucose 121 H Hemoglobin A1c Lactic Acid Calcium Phosphorus Magnesium Iron TIBC AST ALT Troponin T C-Reactive Protein Total Protein Albumin Triglycerides LDL Cholesterol Direct HDL Cholesterol Urine pH Urine WBC (Auto) Vancomycin Trough Salicylates Acetaminophen % CD3 Cells % CD19 Cells Absolute CD19 Count Miscellaneous Test Crossmatch 09/03/18 09/03/18 09/03/18 04:25 05:45 10:24 WBC RBC Hgb Hct RDW Plt Count Lymph % (Auto) [place] % (Auto) Lymph # [place] # Seg Neutrophils % Seg Neuts % (Manual) Lymphocytes % (Manual) Nucleated RBC % Seg Neutrophils # Seg Neutrophils # Man Lymphocytes # (Manual) D-Dimer POC ABG pH POC ABG pCO2 POC ABG pO2 VBG pH Sodium 158 H Potassium 3.1 L Chloride 120.4 H Carbon Dioxide BUN 25 H Creatinine 0.6 L Glucose 127 H POC Glucose 178 H Hemoglobin A1c Lactic Acid Calcium 7.9 L Phosphorus Magnesium Iron TIBC AST ALT Troponin T C-Reactive Protein Total Protein 6.0 L Albumin 2.4 L Triglycerides LDL Cholesterol Direct HDL Cholesterol Urine pH Urine WBC (Auto) Vancomycin Trough Salicylates Acetaminophen % CD3 Cells % CD19 Cells Absolute CD19 Count Miscellaneous Test Crossmatch See Detail 09/03/18 09/03/18 09/04/18 11:27 23:09 04:42 WBC RBC Hgb Hct RDW Plt Count Lymph % (Auto) [place] % (Auto) Lymph # [place] # Seg Neutrophils % Seg Neuts % (Manual) Lymphocytes % (Manual) Nucleated RBC % Seg Neutrophils # Seg Neutrophils # Man Lymphocytes # (Manual) D-Dimer POC ABG pH 7.293 L POC ABG pCO2 50.2 H POC ABG pO2 VBG pH Sodium Potassium Chloride Carbon Dioxide BUN Creatinine Glucose POC Glucose 107 H 139 H Hemoglobin A1c Lactic Acid Calcium Phosphorus Magnesium Iron TIBC AST ALT Troponin T C-Reactive Protein Total Protein Albumin Triglycerides LDL Cholesterol Direct HDL Cholesterol Urine pH Urine WBC (Auto) Vancomycin Trough Salicylates Acetaminophen % CD3 Cells % CD19 Cells Absolute CD19 Count Miscellaneous Test Crossmatch 09/04/18 09/04/18 09/04/18 05:00 06:30 06:30 WBC RBC 2.32 L Hgb 7.0 L Hct 21.9 L RDW 20.2 H Plt Count Lymph % (Auto) [place] % (Auto) Lymph # [place] # Seg Neutrophils % 80.1 H Seg Neuts % (Manual) Lymphocytes % (Manual) Nucleated RBC % Seg Neutrophils # 8.2 H Seg Neutrophils # Man Lymphocytes # (Manual) D-Dimer POC ABG pH POC ABG pCO2 POC ABG pO2 VBG pH Sodium 150 H D Potassium Chloride 115.9 H Carbon Dioxide BUN 21 H Creatinine 0.6 L Glucose 125 H POC Glucose 154 H Hemoglobin A1c Lactic Acid Calcium 7.9 L Phosphorus Magnesium 1.50 L Iron TIBC AST ALT Troponin T C-Reactive Protein Total Protein Albumin Triglycerides LDL Cholesterol Direct HDL Cholesterol Urine pH Urine WBC (Auto) Vancomycin Trough Salicylates Acetaminophen % CD3 Cells % CD19 Cells Absolute CD19 Count Miscellaneous Test Crossmatch 09/04/18 09/04/18 09/04/18 11:20 11:51 18:27 WBC RBC Hgb Hct RDW Plt Count Lymph % (Auto) [place] % (Auto) Lymph # [place] # Seg Neutrophils % Seg Neuts % (Manual) Lymphocytes % (Manual) Nucleated RBC % Seg Neutrophils # Seg Neutrophils # Man Lymphocytes # (Manual) D-Dimer POC ABG pH 7.244 L POC ABG pCO2 54.2 H POC ABG pO2 62 L VBG pH Sodium Potassium Chloride Carbon Dioxide BUN Creatinine Glucose POC Glucose 156 H 129 H Hemoglobin A1c Lactic Acid Calcium Phosphorus Magnesium Iron TIBC AST ALT Troponin T C-Reactive Protein Total Protein Albumin Triglycerides LDL Cholesterol Direct HDL Cholesterol Urine pH Urine WBC (Auto) Vancomycin Trough Salicylates Acetaminophen % CD3 Cells % CD19 Cells Absolute CD19 Count Miscellaneous Test Crossmatch 09/05/18 09/05/18 09/05/18 03:46 04:00 04:00 WBC RBC 2.13 L Hgb 6.4 L Hct 20.1 L RDW 19.9 H Plt Count 117 L Lymph % (Auto) [place] % (Auto) Lymph # 0.9 L [place] # Seg Neutrophils % 81.7 H Seg Neuts % (Manual) Lymphocytes % (Manual) Nucleated RBC % Seg Neutrophils # Seg Neutrophils # Man Lymphocytes # (Manual) D-Dimer POC ABG pH 7.282 L POC ABG pCO2 57.3 H POC ABG pO2 124 H VBG pH Sodium Potassium Chloride 111.0 H Carbon Dioxide BUN 20 H Creatinine Glucose 130 H POC Glucose Hemoglobin A1c Lactic Acid Calcium 7.8 L Phosphorus Magnesium 1.60 L Iron TIBC AST ALT Troponin T C-Reactive Protein Total Protein Albumin Triglycerides LDL Cholesterol Direct HDL Cholesterol Urine pH Urine WBC (Auto) Vancomycin Trough Salicylates Acetaminophen % CD3 Cells % CD19 Cells Absolute CD19 Count Miscellaneous Test Crossmatch 09/05/18 09/05/18 09/05/18 12:15 17:24 23:24 WBC RBC Hgb Hct RDW Plt Count Lymph % (Auto) [place] % (Auto) Lymph # [place] # Seg Neutrophils % Seg Neuts % (Manual) Lymphocytes % (Manual) Nucleated RBC % Seg Neutrophils # Seg Neutrophils # Man Lymphocytes # (Manual) D-Dimer POC ABG pH POC ABG pCO2 POC ABG pO2 VBG pH Sodium Potassium Chloride Carbon Dioxide BUN Creatinine Glucose POC Glucose 143 H 116 H 116 H Hemoglobin A1c Lactic Acid Calcium Phosphorus Magnesium Iron TIBC AST ALT Troponin T C-Reactive Protein Total Protein Albumin Triglycerides LDL Cholesterol Direct HDL Cholesterol Urine pH Urine WBC (Auto) Vancomycin Trough Salicylates Acetaminophen % CD3 Cells % CD19 Cells Absolute CD19 Count Miscellaneous Test Crossmatch 09/06/18 09/06/18 09/06/18 03:33 04:20 04:20 WBC RBC 2.45 L Hgb 7.4 L Hct 23.0 L RDW 18.1 H Plt Count 99 L Lymph % (Auto) [place] % (Auto) Lymph # 1.0 L [place] # Seg Neutrophils % 78.0 H Seg Neuts % (Manual) Lymphocytes % (Manual) Nucleated RBC % Seg Neutrophils # Seg Neutrophils # Man Lymphocytes # (Manual) D-Dimer POC ABG pH 7.303 L POC ABG pCO2 49.2 H POC ABG pO2 73 L VBG pH Sodium Potassium Chloride 109.3 H Carbon Dioxide BUN 24 H Creatinine Glucose 108 H POC Glucose Hemoglobin A1c Lactic Acid Calcium 8.1 L Phosphorus Magnesium Iron TIBC AST ALT Troponin T C-Reactive Protein Total Protein Albumin Triglycerides LDL Cholesterol Direct HDL Cholesterol Urine pH Urine WBC (Auto) Vancomycin Trough Salicylates Acetaminophen % CD3 Cells % CD19 Cells Absolute CD19 Count Miscellaneous Test Crossmatch 09/06/18 09/06/18 09/06/18 04:55 11:29 14:40 WBC RBC Hgb Hct RDW Plt Count Lymph % (Auto) [place] % (Auto) Lymph # [place] # Seg Neutrophils % Seg Neuts % (Manual) Lymphocytes % (Manual) Nucleated RBC % Seg Neutrophils # Seg Neutrophils # Man Lymphocytes # (Manual) D-Dimer POC ABG pH POC ABG pCO2 POC ABG pO2 VBG pH Sodium Potassium Chloride Carbon Dioxide BUN Creatinine Glucose POC Glucose 124 H 149 H Hemoglobin A1c Lactic Acid Calcium Phosphorus Magnesium Iron TIBC AST ALT Troponin T C-Reactive Protein Total Protein Albumin Triglycerides LDL Cholesterol Direct HDL Cholesterol Urine pH Urine WBC (Auto) Vancomycin Trough 28.6 H Salicylates Acetaminophen % CD3 Cells % CD19 Cells Absolute CD19 Count Miscellaneous Test Crossmatch 09/06/18 09/06/18 09/07/18 17:43 20:08 00:39 WBC RBC Hgb Hct RDW Plt Count Lymph % (Auto) [place] % (Auto) Lymph # [place] # Seg Neutrophils % Seg Neuts % (Manual) Lymphocytes % (Manual) Nucleated RBC % Seg Neutrophils # Seg Neutrophils # Man Lymphocytes # (Manual) D-Dimer POC ABG pH POC ABG pCO2 POC ABG pO2 VBG pH Sodium Potassium Chloride Carbon Dioxide BUN Creatinine Glucose POC Glucose 138 H 118 H 131 H Hemoglobin A1c Lactic Acid Calcium Phosphorus Magnesium Iron TIBC AST ALT Troponin T C-Reactive Protein Total Protein Albumin Triglycerides LDL Cholesterol Direct HDL Cholesterol Urine pH Urine WBC (Auto) Vancomycin Trough Salicylates Acetaminophen % CD3 Cells % CD19 Cells Absolute CD19 Count Miscellaneous Test Crossmatch 09/07/18 09/07/18 09/07/18 05:40 05:40 12:03 WBC RBC 2.40 L Hgb 7.3 L Hct 22.5 L RDW 17.8 H Plt Count 92 L Lymph % (Auto) [place] % (Auto) Lymph # [place] # Seg Neutrophils % Seg Neuts % (Manual) 80.0 H Lymphocytes % (Manual) Nucleated RBC % 1.0 H Seg Neutrophils # Seg Neutrophils # Man Lymphocytes # (Manual) 0.8 L D-Dimer POC ABG pH POC ABG pCO2 POC ABG pO2 VBG pH Sodium Potassium Chloride 109.8 H Carbon Dioxide BUN 26 H Creatinine Glucose 118 H POC Glucose 145 H Hemoglobin A1c Lactic Acid Calcium 8.0 L Phosphorus Magnesium Iron 26 L TIBC 150 L AST 88 H ALT Troponin T C-Reactive Protein Total Protein 5.8 L Albumin 2.1 L Triglycerides LDL Cholesterol Direct HDL Cholesterol Urine pH Urine WBC (Auto) Vancomycin Trough Salicylates Acetaminophen % CD3 Cells % CD19 Cells Absolute CD19 Count Miscellaneous Test Crossmatch 09/07/18 09/07/18 09/08/18 17:39 23:21 05:48 WBC RBC Hgb Hct RDW Plt Count Lymph % (Auto) [place] % (Auto) Lymph # [place] # Seg Neutrophils % Seg Neuts % (Manual) Lymphocytes % (Manual) Nucleated RBC % Seg Neutrophils # Seg Neutrophils # Man Lymphocytes # (Manual) D-Dimer POC ABG pH POC ABG pCO2 POC ABG pO2 VBG pH Sodium Potassium Chloride Carbon Dioxide BUN Creatinine Glucose POC Glucose 128 H 136 H 129 H Hemoglobin A1c Lactic Acid Calcium Phosphorus Magnesium Iron TIBC AST ALT Troponin T C-Reactive Protein Total Protein Albumin Triglycerides LDL Cholesterol Direct HDL Cholesterol Urine pH Urine WBC (Auto) Vancomycin Trough Salicylates Acetaminophen % CD3 Cells % CD19 Cells Absolute CD19 Count Miscellaneous Test Crossmatch 09/08/18 09/08/18 09/08/18 06:17 10:06 10:42 WBC RBC Hgb Hct RDW Plt Count Lymph % (Auto) [place] % (Auto) Lymph # [place] # Seg Neutrophils % Seg Neuts % (Manual) Lymphocytes % (Manual) Nucleated RBC % Seg Neutrophils # Seg Neutrophils # Man Lymphocytes # (Manual) D-Dimer POC ABG pH 7.292 L 7.276 L POC ABG pCO2 56.9 H 65.1 H POC ABG pO2 VBG pH Sodium 146 H Potassium Chloride 109.1 H Carbon Dioxide BUN 28 H Creatinine Glucose 165 H POC Glucose Hemoglobin A1c Lactic Acid Calcium Phosphorus Magnesium Iron TIBC AST ALT Troponin T C-Reactive Protein Total Protein Albumin Triglycerides LDL Cholesterol Direct HDL Cholesterol Urine pH Urine WBC (Auto) Vancomycin Trough Salicylates Acetaminophen % CD3 Cells % CD19 Cells Absolute CD19 Count Miscellaneous Test Crossmatch 09/08/18 09/08/18 09/08/18 11:06 18:07 23:20 WBC RBC Hgb Hct RDW Plt Count Lymph % (Auto) [place] % (Auto) Lymph # [place] # Seg Neutrophils % Seg Neuts % (Manual) Lymphocytes % (Manual) Nucleated RBC % Seg Neutrophils # Seg Neutrophils # Man Lymphocytes # (Manual) D-Dimer POC ABG pH POC ABG pCO2 POC ABG pO2 VBG pH Sodium Potassium Chloride Carbon Dioxide BUN Creatinine Glucose POC Glucose 165 H 140 H 124 H Hemoglobin A1c Lactic Acid Calcium Phosphorus Magnesium Iron TIBC AST ALT Troponin T C-Reactive Protein Total Protein Albumin Triglycerides LDL Cholesterol Direct HDL Cholesterol Urine pH Urine WBC (Auto) Vancomycin Trough Salicylates Acetaminophen % CD3 Cells % CD19 Cells Absolute CD19 Count Miscellaneous Test Crossmatch 09/09/18 09/09/18 09/09/18 05:04 08:39 08:39 WBC RBC 2.60 L Hgb 8.1 L Hct 24.6 L RDW 17.9 H Plt Count Lymph % (Auto) [place] % (Auto) Lymph # [place] # Seg Neutrophils % Seg Neuts % (Manual) Lymphocytes % (Manual) Nucleated RBC % Seg Neutrophils # Seg Neutrophils # Man Lymphocytes # (Manual) D-Dimer POC ABG pH POC ABG pCO2 POC ABG pO2 VBG pH Sodium Potassium Chloride Carbon Dioxide BUN 32 H Creatinine Glucose 150 H POC Glucose 168 H Hemoglobin A1c Lactic Acid Calcium Phosphorus Magnesium Iron TIBC AST ALT Troponin T C-Reactive Protein Total Protein Albumin Triglycerides LDL Cholesterol Direct HDL Cholesterol Urine pH Urine WBC (Auto) Vancomycin Trough Salicylates Acetaminophen % CD3 Cells % CD19 Cells Absolute CD19 Count Miscellaneous Test Crossmatch 09/09/18 09/10/18 09/10/18 12:41 04:20 04:20 WBC RBC 2.49 L Hgb 7.7 L Hct 23.4 L RDW 18.0 H Plt Count Lymph % (Auto) 8.2 L [place] % (Auto) Lymph # 0.7 L [place] # Seg Neutrophils % 87.7 H Seg Neuts % (Manual) Lymphocytes % (Manual) Nucleated RBC % Seg Neutrophils # Seg Neutrophils # Man Lymphocytes # (Manual) D-Dimer POC ABG pH POC ABG pCO2 POC ABG pO2 VBG pH Sodium Potassium Chloride Carbon Dioxide 31 H BUN 39 H Creatinine Glucose 183 H POC Glucose 150 H Hemoglobin A1c Lactic Acid Calcium Phosphorus Magnesium Iron TIBC AST 85 H ALT 58 H Troponin T C-Reactive Protein Total Protein Albumin 2.5 L Triglycerides LDL Cholesterol Direct HDL Cholesterol Urine pH Urine WBC (Auto) Vancomycin Trough Salicylates Acetaminophen % CD3 Cells % CD19 Cells Absolute CD19 Count Miscellaneous Test Crossmatch 09/10/18 09/10/18 09/10/18 04:39 05:06 11:17 WBC RBC Hgb Hct RDW Plt Count Lymph % (Auto) [place] % (Auto) Lymph # [place] # Seg Neutrophils % Seg Neuts % (Manual) Lymphocytes % (Manual) Nucleated RBC % Seg Neutrophils # Seg Neutrophils # Man Lymphocytes # (Manual) D-Dimer POC ABG pH POC ABG pCO2 51.4 H POC ABG pO2 VBG pH Sodium Potassium Chloride Carbon Dioxide BUN Creatinine Glucose POC Glucose 185 H 159 H Hemoglobin A1c Lactic Acid Calcium Phosphorus Magnesium Iron TIBC AST ALT Troponin T C-Reactive Protein Total Protein Albumin Triglycerides LDL Cholesterol Direct HDL Cholesterol Urine pH Urine WBC (Auto) Vancomycin Trough Salicylates Acetaminophen % CD3 Cells % CD19 Cells Absolute CD19 Count Miscellaneous Test Crossmatch 09/10/18 09/11/18 09/11/18 16:57 00:17 01:10 WBC RBC Hgb Hct RDW Plt Count Lymph % (Auto) [place] % (Auto) Lymph # [place] # Seg Neutrophils % Seg Neuts % (Manual) Lymphocytes % (Manual) Nucleated RBC % Seg Neutrophils # Seg Neutrophils # Man Lymphocytes # (Manual) D-Dimer POC ABG pH POC ABG pCO2 POC ABG pO2 VBG pH Sodium Potassium Chloride Carbon Dioxide 34 H BUN 44 H Creatinine Glucose 154 H POC Glucose 177 H 163 H Hemoglobin A1c Lactic Acid Calcium Phosphorus Magnesium Iron TIBC AST 86 H ALT 68 H Troponin T C-Reactive Protein Total Protein Albumin 2.6 L Triglycerides LDL Cholesterol Direct HDL Cholesterol Urine pH Urine WBC (Auto) Vancomycin Trough Salicylates Acetaminophen % CD3 Cells % CD19 Cells Absolute CD19 Count Miscellaneous Test Crossmatch 09/11/18 09/11/18 09/11/18 01:10 06:03 09:00 WBC 13.7 H RBC 2.61 L Hgb 8.0 L Hct 24.6 L RDW 19.1 H Plt Count Lymph % (Auto) 6.1 L [place] % (Auto) Lymph # 0.8 L [place] # Seg Neutrophils % 87.7 H Seg Neuts % (Manual) Lymphocytes % (Manual) Nucleated RBC % Seg Neutrophils # 12.0 H Seg Neutrophils # Man Lymphocytes # (Manual) D-Dimer POC ABG pH POC ABG pCO2 POC ABG pO2 VBG pH Sodium Potassium Chloride Carbon Dioxide 33 H BUN 45 H Creatinine Glucose 147 H POC Glucose 180 H Hemoglobin A1c Lactic Acid Calcium Phosphorus Magnesium Iron TIBC AST ALT Troponin T C-Reactive Protein Total Protein Albumin Triglycerides LDL Cholesterol Direct HDL Cholesterol Urine pH Urine WBC (Auto) Vancomycin Trough Salicylates Acetaminophen % CD3 Cells % CD19 Cells Absolute CD19 Count Miscellaneous Test Crossmatch 09/11/18 09/11/18 09/11/18 11:14 11:31 17:11 WBC RBC Hgb Hct RDW Plt Count Lymph % (Auto) [place] % (Auto) Lymph # [place] # Seg Neutrophils % Seg Neuts % (Manual) Lymphocytes % (Manual) Nucleated RBC % Seg Neutrophils # Seg Neutrophils # Man Lymphocytes # (Manual) D-Dimer POC ABG pH 7.498 H POC ABG pCO2 46.3 H POC ABG pO2 VBG pH Sodium Potassium Chloride Carbon Dioxide BUN Creatinine Glucose POC Glucose 163 H 202 H Hemoglobin A1c Lactic Acid Calcium Phosphorus Magnesium Iron TIBC AST ALT Troponin T C-Reactive Protein Total Protein Albumin Triglycerides LDL Cholesterol Direct HDL Cholesterol Urine pH Urine WBC (Auto) Vancomycin Trough Salicylates Acetaminophen % CD3 Cells % CD19 Cells Absolute CD19 Count Miscellaneous Test Crossmatch 09/11/18 09/12/18 09/12/18 23:49 03:16 05:30 WBC RBC 2.36 L Hgb 7.3 L Hct 22.3 L RDW 18.4 H Plt Count Lymph % (Auto) 13.0 L [place] % (Auto) 9.3 H Lymph # 1.1 L [place] # Seg Neutrophils % 77.5 H Seg Neuts % (Manual) Lymphocytes % (Manual) Nucleated RBC % Seg Neutrophils # Seg Neutrophils # Man Lymphocytes # (Manual) D-Dimer POC ABG pH 7.517 H POC ABG pCO2 48.8 H POC ABG pO2 VBG pH Sodium Potassium Chloride Carbon Dioxide BUN Creatinine Glucose POC Glucose 163 H Hemoglobin A1c Lactic Acid Calcium Phosphorus Magnesium Iron TIBC AST ALT Troponin T C-Reactive Protein Total Protein Albumin Triglycerides LDL Cholesterol Direct HDL Cholesterol Urine pH Urine WBC (Auto) Vancomycin Trough Salicylates Acetaminophen % CD3 Cells % CD19 Cells Absolute CD19 Count Miscellaneous Test Crossmatch 09/12/18 09/12/18 09/12/18 05:30 06:07 11:36 WBC RBC Hgb Hct RDW Plt Count Lymph % (Auto) [place] % (Auto) Lymph # [place] # Seg Neutrophils % Seg Neuts % (Manual) Lymphocytes % (Manual) Nucleated RBC % Seg Neutrophils # Seg Neutrophils # Man Lymphocytes # (Manual) D-Dimer POC ABG pH POC ABG pCO2 POC ABG pO2 VBG pH Sodium 148 H Potassium Chloride Carbon Dioxide 36 H BUN 46 H Creatinine Glucose 152 H POC Glucose 172 H 212 H Hemoglobin A1c Lactic Acid Calcium Phosphorus Magnesium Iron TIBC AST ALT Troponin T C-Reactive Protein Total Protein Albumin Triglycerides LDL Cholesterol Direct HDL Cholesterol Urine pH Urine WBC (Auto) Vancomycin Trough Salicylates Acetaminophen % CD3 Cells % CD19 Cells Absolute CD19 Count Miscellaneous Test Crossmatch 09/12/18 09/12/18 09/13/18 18:02 23:19 03:55 WBC RBC Hgb Hct RDW Plt Count Lymph % (Auto) [place] % (Auto) Lymph # [place] # Seg Neutrophils % Seg Neuts % (Manual) Lymphocytes % (Manual) Nucleated RBC % Seg Neutrophils # Seg Neutrophils # Man Lymphocytes # (Manual) D-Dimer POC ABG pH 7.520 H POC ABG pCO2 48.0 H POC ABG pO2 58 L VBG pH Sodium Potassium Chloride Carbon Dioxide BUN Creatinine Glucose POC Glucose 142 H 161 H Hemoglobin A1c Lactic Acid Calcium Phosphorus Magnesium Iron TIBC AST ALT Troponin T C-Reactive Protein Total Protein Albumin Triglycerides LDL Cholesterol Direct HDL Cholesterol Urine pH Urine WBC (Auto) Vancomycin Trough Salicylates Acetaminophen % CD3 Cells % CD19 Cells Absolute CD19 Count Miscellaneous Test Crossmatch 09/13/18 09/13/18 09/13/18 05:11 05:25 05:25 WBC RBC 2.38 L Hgb 7.6 L Hct 22.4 L RDW 18.6 H Plt Count Lymph % (Auto) [place] % (Auto) Lymph # [place] # Seg Neutrophils % Seg Neuts % (Manual) Lymphocytes % (Manual) Nucleated RBC % Seg Neutrophils # Seg Neutrophils # Man Lymphocytes # (Manual) D-Dimer POC ABG pH POC ABG pCO2 POC ABG pO2 VBG pH Sodium Potassium 3.2 L Chloride 97.5 L Carbon Dioxide 38 H BUN 38 H Creatinine 0.6 L Glucose 120 H POC Glucose 139 H Hemoglobin A1c Lactic Acid Calcium 8.1 L Phosphorus Magnesium Iron TIBC AST 120 H ALT 124 H Troponin T C-Reactive Protein Total Protein 5.9 L Albumin 2.6 L Triglycerides LDL Cholesterol Direct HDL Cholesterol Urine pH Urine WBC (Auto) Vancomycin Trough Salicylates Acetaminophen % CD3 Cells % CD19 Cells Absolute CD19 Count Miscellaneous Test Crossmatch 09/13/18 09/13/18 09/13/18 11:31 17:46 23:23 WBC RBC Hgb Hct RDW Plt Count Lymph % (Auto) [place] % (Auto) Lymph # [place] # Seg Neutrophils % Seg Neuts % (Manual) Lymphocytes % (Manual) Nucleated RBC % Seg Neutrophils # Seg Neutrophils # Man Lymphocytes # (Manual) D-Dimer POC ABG pH POC ABG pCO2 POC ABG pO2 VBG pH Sodium Potassium Chloride Carbon Dioxide BUN Creatinine Glucose POC Glucose 160 H 145 H 135 H Hemoglobin A1c Lactic Acid Calcium Phosphorus Magnesium Iron TIBC AST ALT Troponin T C-Reactive Protein Total Protein Albumin Triglycerides LDL Cholesterol Direct HDL Cholesterol Urine pH Urine WBC (Auto) Vancomycin Trough Salicylates Acetaminophen % CD3 Cells % CD19 Cells Absolute CD19 Count Miscellaneous Test Crossmatch 09/14/18 09/14/18 09/14/18 03:56 04:55 04:55 WBC RBC 2.28 L Hgb 7.1 L Hct 21.4 L RDW 18.2 H Plt Count Lymph % (Auto) [place] % (Auto) Lymph # [place] # Seg Neutrophils % 76.4 H Seg Neuts % (Manual) Lymphocytes % (Manual) Nucleated RBC % Seg Neutrophils # Seg Neutrophils # Man Lymphocytes # (Manual) D-Dimer POC ABG pH 7.503 H POC ABG pCO2 49.1 H POC ABG pO2 79 L VBG pH Sodium Potassium Chloride 97.7 L Carbon Dioxide 35 H BUN 32 H Creatinine 0.6 L Glucose 114 H POC Glucose Hemoglobin A1c Lactic Acid Calcium Phosphorus Magnesium Iron TIBC AST 60 H ALT 88 H Troponin T C-Reactive Protein Total Protein 5.6 L Albumin 2.2 L Triglycerides LDL Cholesterol Direct HDL Cholesterol Urine pH Urine WBC (Auto) Vancomycin Trough Salicylates Acetaminophen % CD3 Cells % CD19 Cells Absolute CD19 Count Miscellaneous Test Crossmatch 09/14/18 09/14/18 09/14/18 05:14 12:00 12:27 WBC RBC Hgb Hct RDW Plt Count Lymph % (Auto) [place] % (Auto) Lymph # [place] # Seg Neutrophils % Seg Neuts % (Manual) Lymphocytes % (Manual) Nucleated RBC % Seg Neutrophils # Seg Neutrophils # Man Lymphocytes # (Manual) D-Dimer POC ABG pH POC ABG pCO2 POC ABG pO2 VBG pH Sodium Potassium Chloride Carbon Dioxide BUN Creatinine Glucose POC Glucose 115 H 125 H Hemoglobin A1c Lactic Acid Calcium Phosphorus Magnesium Iron TIBC AST ALT Troponin T C-Reactive Protein Total Protein Albumin Triglycerides LDL Cholesterol Direct HDL Cholesterol Urine pH Urine WBC (Auto) Vancomycin Trough Salicylates Acetaminophen % CD3 Cells % CD19 Cells Absolute CD19 Count Miscellaneous Test Crossmatch See Detail 09/14/18 09/15/18 09/15/18 17:54 03:49 04:10 WBC RBC 2.46 L Hgb 7.7 L Hct 23.0 L RDW 18.6 H Plt Count Lymph % (Auto) [place] % (Auto) Lymph # 1.1 L [place] # Seg Neutrophils % 74.2 H Seg Neuts % (Manual) Lymphocytes % (Manual) Nucleated RBC % Seg Neutrophils # Seg Neutrophils # Man Lymphocytes # (Manual) D-Dimer POC ABG pH POC ABG pCO2 58.2 H POC ABG pO2 VBG pH Sodium Potassium Chloride Carbon Dioxide BUN Creatinine Glucose POC Glucose 138 H Hemoglobin A1c Lactic Acid Calcium Phosphorus Magnesium Iron TIBC AST ALT Troponin T C-Reactive Protein Total Protein Albumin Triglycerides LDL Cholesterol Direct HDL Cholesterol Urine pH Urine WBC (Auto) Vancomycin Trough Salicylates Acetaminophen % CD3 Cells % CD19 Cells Absolute CD19 Count Miscellaneous Test Crossmatch 09/15/18 09/15/18 09/15/18 04:10 11:36 11:36 WBC RBC Hgb Hct RDW Plt Count Lymph % (Auto) [place] % (Auto) Lymph # [place] # Seg Neutrophils % Seg Neuts % (Manual) Lymphocytes % (Manual) Nucleated RBC % Seg Neutrophils # Seg Neutrophils # Man Lymphocytes # (Manual) D-Dimer POC ABG pH POC ABG pCO2 53.5 H POC ABG pO2 67 L VBG pH Sodium Potassium Chloride Carbon Dioxide 35 H BUN 21 H Creatinine Glucose POC Glucose 108 H Hemoglobin A1c Lactic Acid Calcium 7.9 L Phosphorus Magnesium Iron TIBC AST ALT Troponin T C-Reactive Protein Total Protein Albumin Triglycerides LDL Cholesterol Direct HDL Cholesterol Urine pH Urine WBC (Auto) Vancomycin Trough Salicylates Acetaminophen % CD3 Cells % CD19 Cells Absolute CD19 Count Miscellaneous Test Crossmatch 09/16/18 09/16/18 09/16/18 01:16 04:25 11:30 WBC RBC 2.77 L Hgb 8.5 L Hct 25.6 L RDW 17.9 H Plt Count Lymph % (Auto) [place] % (Auto) Lymph # [place] # Seg Neutrophils % Seg Neuts % (Manual) Lymphocytes % (Manual) Nucleated RBC % Seg Neutrophils # Seg Neutrophils # Man Lymphocytes # (Manual) D-Dimer POC ABG pH 7.489 H POC ABG pCO2 47.6 H POC ABG pO2 62 L VBG pH Sodium Potassium Chloride Carbon Dioxide BUN Creatinine Glucose POC Glucose 108 H Hemoglobin A1c Lactic Acid Calcium Phosphorus Magnesium Iron TIBC AST ALT Troponin T C-Reactive Protein Total Protein Albumin Triglycerides LDL Cholesterol Direct HDL Cholesterol Urine pH Urine WBC (Auto) Vancomycin Trough Salicylates Acetaminophen % CD3 Cells % CD19 Cells Absolute CD19 Count Miscellaneous Test Crossmatch 09/16/18 09/16/18 09/17/18 11:30 23:07 04:22 WBC RBC Hgb Hct RDW Plt Count Lymph % (Auto) [place] % (Auto) Lymph # [place] # Seg Neutrophils % Seg Neuts % (Manual) Lymphocytes % (Manual) Nucleated RBC % Seg Neutrophils # Seg Neutrophils # Man Lymphocytes # (Manual) D-Dimer POC ABG pH 7.576 H POC ABG pCO2 POC ABG pO2 58 L VBG pH Sodium Potassium 3.2 L Chloride 96.6 L Carbon Dioxide 34 H BUN Creatinine Glucose 128 H POC Glucose 147 H Hemoglobin A1c Lactic Acid Calcium Phosphorus Magnesium Iron TIBC AST ALT Troponin T C-Reactive Protein Total Protein Albumin Triglycerides LDL Cholesterol Direct HDL Cholesterol Urine pH Urine WBC (Auto) Vancomycin Trough Salicylates Acetaminophen % CD3 Cells % CD19 Cells Absolute CD19 Count Miscellaneous Test Crossmatch 09/17/18 09/17/18 09/17/18 05:50 10:15 14:59 WBC RBC Hgb Hct RDW Plt Count Lymph % (Auto) [place] % (Auto) Lymph # [place] # Seg Neutrophils % Seg Neuts % (Manual) Lymphocytes % (Manual) Nucleated RBC % Seg Neutrophils # Seg Neutrophils # Man Lymphocytes # (Manual) D-Dimer POC ABG pH POC ABG pCO2 POC ABG pO2 VBG pH Sodium Potassium 2.6 L* Chloride 96.3 L Carbon Dioxide 33 H BUN Creatinine Glucose 151 H POC Glucose 138 H 151 H Hemoglobin A1c Lactic Acid Calcium Phosphorus Magnesium Iron TIBC AST ALT Troponin T C-Reactive Protein Total Protein Albumin Triglycerides LDL Cholesterol Direct HDL Cholesterol Urine pH Urine WBC (Auto) Vancomycin Trough Salicylates Acetaminophen % CD3 Cells % CD19 Cells Absolute CD19 Count Miscellaneous Test Crossmatch 09/17/18 09/17/18 09/18/18 17:51 Unknown 00:11 WBC RBC Hgb Hct RDW Plt Count Lymph % (Auto) [place] % (Auto) Lymph # [place] # Seg Neutrophils % Seg Neuts % (Manual) Lymphocytes % (Manual) Nucleated RBC % Seg Neutrophils # Seg Neutrophils # Man Lymphocytes # (Manual) D-Dimer POC ABG pH POC ABG pCO2 POC ABG pO2 VBG pH Sodium Potassium 2.7 L* Chloride 97.5 L Carbon Dioxide 32 H BUN Creatinine Glucose 142 H POC Glucose 149 H 128 H Hemoglobin A1c Lactic Acid Calcium Phosphorus Magnesium Iron TIBC AST ALT Troponin T C-Reactive Protein Total Protein Albumin Triglycerides LDL Cholesterol Direct HDL Cholesterol Urine pH Urine WBC (Auto) Vancomycin Trough Salicylates Acetaminophen % CD3 Cells % CD19 Cells Absolute CD19 Count Miscellaneous Test Crossmatch 09/18/18 09/18/18 09/18/18 04:20 04:20 04:28 WBC RBC 2.94 L Hgb 9.0 L Hct 27.2 L RDW 17.7 H Plt Count Lymph % (Auto) [place] % (Auto) 12.1 H Lymph # 1.0 L [place] # Seg Neutrophils % 70.2 H Seg Neuts % (Manual) Lymphocytes % (Manual) Nucleated RBC % Seg Neutrophils # Seg Neutrophils # Man Lymphocytes # (Manual) D-Dimer POC ABG pH 7.563 H POC ABG pCO2 POC ABG pO2 VBG pH Sodium Potassium 3.0 L Chloride Carbon Dioxide 33 H BUN Creatinine Glucose 133 H POC Glucose Hemoglobin A1c Lactic Acid Calcium Phosphorus Magnesium Iron TIBC AST ALT Troponin T C-Reactive Protein Total Protein Albumin Triglycerides LDL Cholesterol Direct HDL Cholesterol Urine pH Urine WBC (Auto) Vancomycin Trough Salicylates Acetaminophen % CD3 Cells % CD19 Cells Absolute CD19 Count Miscellaneous Test Crossmatch 09/18/18 09/18/18 09/19/18 06:19 14:45 00:13 WBC RBC Hgb Hct RDW Plt Count Lymph % (Auto) [place] % (Auto) Lymph # [place] # Seg Neutrophils % Seg Neuts % (Manual) Lymphocytes % (Manual) Nucleated RBC % Seg Neutrophils # Seg Neutrophils # Man Lymphocytes # (Manual) D-Dimer POC ABG pH POC ABG pCO2 POC ABG pO2 VBG pH Sodium Potassium Chloride Carbon Dioxide BUN Creatinine Glucose POC Glucose 140 H 164 H 111 H Hemoglobin A1c Lactic Acid Calcium Phosphorus Magnesium Iron TIBC AST ALT Troponin T C-Reactive Protein Total Protein Albumin Triglycerides LDL Cholesterol Direct HDL Cholesterol Urine pH Urine WBC (Auto) Vancomycin Trough Salicylates Acetaminophen % CD3 Cells % CD19 Cells Absolute CD19 Count Miscellaneous Test Crossmatch 09/19/18 09/19/18 09/19/18 03:38 05:08 05:20 WBC RBC Hgb Hct RDW Plt Count Lymph % (Auto) [place] % (Auto) Lymph # [place] # Seg Neutrophils % Seg Neuts % (Manual) Lymphocytes % (Manual) Nucleated RBC % Seg Neutrophils # Seg Neutrophils # Man Lymphocytes # (Manual) D-Dimer POC ABG pH 7.502 H POC ABG pCO2 34.6 L POC ABG pO2 73 L VBG pH Sodium Potassium 2.7 L* Chloride Carbon Dioxide BUN Creatinine 0.6 L Glucose 119 H POC Glucose 128 H Hemoglobin A1c Lactic Acid Calcium Phosphorus Magnesium Iron TIBC AST ALT Troponin T C-Reactive Protein Total Protein Albumin Triglycerides LDL Cholesterol Direct HDL Cholesterol Urine pH Urine WBC (Auto) Vancomycin Trough Salicylates Acetaminophen % CD3 Cells % CD19 Cells Absolute CD19 Count Miscellaneous Test Crossmatch 09/20/18 09/20/18 09/20/18 04:20 04:20 05:15 WBC RBC 2.89 L Hgb 9.1 L Hct 27.1 L RDW 17.1 H Plt Count Lymph % (Auto) 12.6 L [place] % (Auto) 10.7 H Lymph # 1.1 L [place] # 0.9 H Seg Neutrophils % 76.1 H Seg Neuts % (Manual) Lymphocytes % (Manual) Nucleated RBC % Seg Neutrophils # Seg Neutrophils # Man Lymphocytes # (Manual) D-Dimer POC ABG pH POC ABG pCO2 33.6 L POC ABG pO2 56 L VBG pH Sodium 136 L Potassium 2.9 L* Chloride Carbon Dioxide BUN Creatinine Glucose 116 H POC Glucose Hemoglobin A1c Lactic Acid Calcium Phosphorus Magnesium Iron TIBC AST ALT Troponin T C-Reactive Protein Total Protein Albumin Triglycerides LDL Cholesterol Direct HDL Cholesterol Urine pH Urine WBC (Auto) Vancomycin Trough Salicylates Acetaminophen % CD3 Cells % CD19 Cells Absolute CD19 Count Miscellaneous Test Crossmatch 09/20/18 09/20/18 09/20/18 11:26 16:10 23:50 WBC RBC Hgb Hct RDW Plt Count Lymph % (Auto) [place] % (Auto) Lymph # [place] # Seg Neutrophils % Seg Neuts % (Manual) Lymphocytes % (Manual) Nucleated RBC % Seg Neutrophils # Seg Neutrophils # Man Lymphocytes # (Manual) D-Dimer POC ABG pH POC ABG pCO2 POC ABG pO2 VBG pH Sodium Potassium Chloride Carbon Dioxide BUN Creatinine Glucose POC Glucose 163 H 119 H Hemoglobin A1c Lactic Acid Calcium Phosphorus Magnesium Iron TIBC AST ALT Troponin T C-Reactive Protein Total Protein Albumin Triglycerides LDL Cholesterol Direct HDL Cholesterol Urine pH 9.0 H Urine WBC (Auto) Vancomycin Trough Salicylates Acetaminophen % CD3 Cells % CD19 Cells Absolute CD19 Count Miscellaneous Test Crossmatch 09/21/18 09/21/18 09/21/18 04:35 04:35 11:30 WBC RBC 2.67 L Hgb 8.3 L Hct 25.1 L RDW 17.4 H Plt Count Lymph % (Auto) [place] % (Auto) 10.0 H Lymph # [place] # Seg Neutrophils % Seg Neuts % (Manual) Lymphocytes % (Manual) Nucleated RBC % Seg Neutrophils # Seg Neutrophils # Man Lymphocytes # (Manual) D-Dimer POC ABG pH POC ABG pCO2 POC ABG pO2 VBG pH Sodium Potassium Chloride Carbon Dioxide 21 L BUN 18 H Creatinine Glucose 106 H POC Glucose 110 H Hemoglobin A1c Lactic Acid Calcium Phosphorus Magnesium Iron TIBC AST ALT Troponin T C-Reactive Protein Total Protein Albumin Triglycerides LDL Cholesterol Direct HDL Cholesterol Urine pH Urine WBC (Auto) Vancomycin Trough Salicylates Acetaminophen % CD3 Cells % CD19 Cells Absolute CD19 Count Miscellaneous Test Crossmatch 09/22/18 09/22/18 09/22/18 04:11 12:30 17:54 WBC RBC Hgb Hct RDW Plt Count Lymph % (Auto) [place] % (Auto) Lymph # [place] # Seg Neutrophils % Seg Neuts % (Manual) Lymphocytes % (Manual) Nucleated RBC % Seg Neutrophils # Seg Neutrophils # Man Lymphocytes # (Manual) D-Dimer POC ABG pH POC ABG pCO2 POC ABG pO2 VBG pH Sodium Potassium Chloride Carbon Dioxide BUN 21 H Creatinine 0.6 L Glucose POC Glucose 120 H 122 H Hemoglobin A1c Lactic Acid Calcium Phosphorus Magnesium Iron TIBC AST ALT Troponin T C-Reactive Protein Total Protein Albumin Triglycerides LDL Cholesterol Direct HDL Cholesterol Urine pH Urine WBC (Auto) Vancomycin Trough Salicylates Acetaminophen % CD3 Cells % CD19 Cells Absolute CD19 Count Miscellaneous Test Crossmatch 09/23/18 09/23/18 09/23/18 05:29 12:01 18:23 WBC RBC Hgb Hct RDW Plt Count Lymph % (Auto) [place] % (Auto) Lymph # [place] # Seg Neutrophils % Seg Neuts % (Manual) Lymphocytes % (Manual) Nucleated RBC % Seg Neutrophils # Seg Neutrophils # Man Lymphocytes # (Manual) D-Dimer POC ABG pH POC ABG pCO2 POC ABG pO2 VBG pH Sodium Potassium Chloride Carbon Dioxide BUN Creatinine Glucose POC Glucose 163 H 144 H 138 H Hemoglobin A1c Lactic Acid Calcium Phosphorus Magnesium Iron TIBC AST ALT Troponin T C-Reactive Protein Total Protein Albumin Triglycerides LDL Cholesterol Direct HDL Cholesterol Urine pH Urine WBC (Auto) Vancomycin Trough Salicylates Acetaminophen % CD3 Cells % CD19 Cells Absolute CD19 Count Miscellaneous Test Crossmatch 09/23/18 09/24/18 09/24/18 23:53 03:41 03:41 WBC RBC 3.00 L Hgb 9.2 L Hct 28.1 L RDW 16.7 H Plt Count 105 L Lymph % (Auto) [place] % (Auto) 12.3 H Lymph # [place] # Seg Neutrophils % Seg Neuts % (Manual) Lymphocytes % (Manual) Nucleated RBC % Seg Neutrophils # Seg Neutrophils # Man Lymphocytes # (Manual) D-Dimer POC ABG pH POC ABG pCO2 POC ABG pO2 VBG pH Sodium Potassium Chloride Carbon Dioxide BUN 21 H Creatinine 0.5 L Glucose 109 H POC Glucose 122 H Hemoglobin A1c Lactic Acid Calcium Phosphorus Magnesium Iron TIBC AST ALT Troponin T C-Reactive Protein Total Protein Albumin Triglycerides LDL Cholesterol Direct HDL Cholesterol Urine pH Urine WBC (Auto) Vancomycin Trough Salicylates Acetaminophen % CD3 Cells % CD19 Cells Absolute CD19 Count Miscellaneous Test Crossmatch 09/24/18 09/24/18 09/24/18 05:43 11:38 17:41 WBC RBC Hgb Hct RDW Plt Count Lymph % (Auto) [place] % (Auto) Lymph # [place] # Seg Neutrophils % Seg Neuts % (Manual) Lymphocytes % (Manual) Nucleated RBC % Seg Neutrophils # Seg Neutrophils # Man Lymphocytes # (Manual) D-Dimer POC ABG pH POC ABG pCO2 POC ABG pO2 VBG pH Sodium Potassium Chloride Carbon Dioxide BUN Creatinine Glucose POC Glucose 110 H 132 H 122 H Hemoglobin A1c Lactic Acid Calcium Phosphorus Magnesium Iron TIBC AST ALT Troponin T C-Reactive Protein Total Protein Albumin Triglycerides LDL Cholesterol Direct HDL Cholesterol Urine pH Urine WBC (Auto) Vancomycin Trough Salicylates Acetaminophen % CD3 Cells % CD19 Cells Absolute CD19 Count Miscellaneous Test Crossmatch 09/24/18 09/24/18 09/25/18 23:02 23:24 04:17 WBC RBC 3.07 L Hgb 9.5 L Hct 28.8 L RDW 16.6 H Plt Count Lymph % (Auto) [place] % (Auto) Lymph # [place] # Seg Neutrophils % Seg Neuts % (Manual) Lymphocytes % (Manual) Nucleated RBC % Seg Neutrophils # Seg Neutrophils # Man Lymphocytes # (Manual) D-Dimer POC ABG pH 7.516 H POC ABG pCO2 POC ABG pO2 VBG pH Sodium Potassium Chloride Carbon Dioxide BUN Creatinine Glucose POC Glucose 113 H Hemoglobin A1c Lactic Acid Calcium Phosphorus Magnesium Iron TIBC AST ALT Troponin T C-Reactive Protein Total Protein Albumin Triglycerides LDL Cholesterol Direct HDL Cholesterol Urine pH Urine WBC (Auto) Vancomycin Trough Salicylates Acetaminophen % CD3 Cells % CD19 Cells Absolute CD19 Count Miscellaneous Test Crossmatch 09/25/18 09/25/18 09/25/18 04:17 12:18 17:33 WBC RBC Hgb Hct RDW Plt Count Lymph % (Auto) [place] % (Auto) Lymph # [place] # Seg Neutrophils % Seg Neuts % (Manual) Lymphocytes % (Manual) Nucleated RBC % Seg Neutrophils # Seg Neutrophils # Man Lymphocytes # (Manual) D-Dimer POC ABG pH POC ABG pCO2 POC ABG pO2 VBG pH Sodium Potassium Chloride Carbon Dioxide BUN 24 H Creatinine 0.6 L Glucose 121 H POC Glucose 140 H 121 H Hemoglobin A1c Lactic Acid Calcium Phosphorus Magnesium Iron TIBC AST ALT Troponin T C-Reactive Protein Total Protein Albumin Triglycerides LDL Cholesterol Direct HDL Cholesterol Urine pH Urine WBC (Auto) Vancomycin Trough Salicylates Acetaminophen % CD3 Cells % CD19 Cells Absolute CD19 Count Miscellaneous Test Crossmatch 09/25/18 09/26/18 09/26/18 23:57 04:02 04:02 WBC RBC 2.98 L Hgb 9.3 L Hct 27.7 L RDW 16.6 H Plt Count Lymph % (Auto) [place] % (Auto) Lymph # [place] # Seg Neutrophils % Seg Neuts % (Manual) Lymphocytes % (Manual) Nucleated RBC % Seg Neutrophils # Seg Neutrophils # Man Lymphocytes # (Manual) D-Dimer POC ABG pH POC ABG pCO2 POC ABG pO2 VBG pH Sodium Potassium Chloride Carbon Dioxide BUN 29 H Creatinine 0.5 L Glucose 141 H POC Glucose 110 H Hemoglobin A1c Lactic Acid Calcium Phosphorus Magnesium Iron TIBC AST ALT Troponin T C-Reactive Protein Total Protein Albumin Triglycerides LDL Cholesterol Direct HDL Cholesterol Urine pH Urine WBC (Auto) Vancomycin Trough Salicylates Acetaminophen % CD3 Cells % CD19 Cells Absolute CD19 Count Miscellaneous Test Crossmatch 09/26/18 09/26/18 05:04 11:40 WBC RBC Hgb Hct RDW Plt Count Lymph % (Auto) [place] % (Auto) Lymph # [place] # Seg Neutrophils % Seg Neuts % (Manual) Lymphocytes % (Manual) Nucleated RBC % Seg Neutrophils # Seg Neutrophils # Man Lymphocytes # (Manual) D-Dimer POC ABG pH POC ABG pCO2 POC ABG pO2 VBG pH Sodium Potassium Chloride Carbon Dioxide BUN Creatinine Glucose POC Glucose 125 H 151 H Hemoglobin A1c Lactic Acid Calcium Phosphorus Magnesium Iron TIBC AST ALT Troponin T C-Reactive Protein Total Protein Albumin Triglycerides LDL Cholesterol Direct HDL Cholesterol Urine pH Urine WBC (Auto) Vancomycin Trough Salicylates Acetaminophen % CD3 Cells % CD19 Cells Absolute CD19 Count Miscellaneous Test Crossmatch Allied health notes reviewed: nursing
--- NOTE | 2018-09-26 17:36 | Progress Note ---
Assessment and Plan Cultures: 08/15/2018 blood culture: Camryn glabrata 1 of 4 08/15/2018 sputum culture: MSSA and Escherichia coli, wade susceptible 08/18/2018 blood culture: no growth 08/18/2018 urine culture: neg 08/22/2018 blood culture: no growth 08/25/2018 blood culture: no growth 09/02/2018 BAL cultures: resp almaz. Fungal and AFB pending: No growth thus far. 09/04/2018 blood culture: no growth thus far 09/04/2018 trach aspirate: no growth Fungitell was high (consistent with Candidemia), Aspergillus galactomannan negative. 09/13/2018 blood culture: no growth A/P: 68-year-old female with COPD, arthritis, history of multiple spinal surgeries was brought to the emergency room on 08/15/2018 with altered mental status: 1) Sepsis with septic shock: new fever 102.6 on 09/18, resolved. Etiology unclear. Blood cultures 09/13/2018 negative. Has indwelling PICC and Manrique. Now with persistent diarrhea. ? ?sinusitis. Recent CT abd showed new bilateral effusions, anasarca, and decreased bilateral consolidation. repeat UA neg. Repeat blood culture neg. C diff neg. 2) Recent Camryn glabrata fungemia: resolved. Etiology remains unclear. Patient without any history of indwelling PICC line, TPN or immunocompromised status. reported severe explosive diarrhea, N/V before admission after taken 4 days of amoxicillin for dental implant on 07/29/2018 and had a EGD / colonoscopy on 08/08/[address] [facility] [address] Alcantara. I reviewed report - mild chronic gastritis, focal intestinal metaplasia, squamocolumnar mucosa with mild reflux-type changes, and tubular adenoma. -s/p fluconazole 800 mg loading dose then micafungin, s/p amphotericin D6 on 08/26 -serum Crypto negative. -08/15/2018 blood culture: Camryn glabrata -08/18/2018 blood culture: no growth -CTA chest showed limited study due to respiratory motion artifact. No evidence of pulmonary embolism. Abnormal bilateral lung consolidation which may represent pulmonary edema or pneumonia. Mild cardiomegaly. Indeterminant mediastinal lymph nodes. -CT abdomen showed extensive bilateral lower lobe pulmonary infiltrates, rectal tube and Manrique catheter noted. NG tube at gastric antrum. Left hip prosthesis Extensive degenerative changes noted lumbar spine -TTE EF 25-30% no vegetations -HIV neg/ CD4 1004 -reviewed CT chest abd done 01/05/2019 showed cholecystectomy, mild fatty liver, postoperative changes of lumbar laminectomy with non specific fluid, 9 mm LLL pulmonary nodule which was compared to previous CT and was stable. -CRP 10-->5 3) Acute renal failure: On admission: improved. 4) Acute respiratory failure: Back on the vent. Recently completed pneumonia treatment. Underwent bronch + BAL on 09/02/2018. Cultures with no growth thus far. On abx. CTA chest 09/06/2018 negative for PE, bilateral air space disease, no air bronchograms as such. 5) Right maxillary sinusitis: received empiric abx. 6) Acute encephalopathy: Likely multifactorial. CT head unremarkable for acute intracranial process. 7) Cardiomyopathy, LVEF 25-30% this admission. 8) H/O left hip prosthesis ? XR no effusion. CT with no enhancement 9) Left leg DVT: on anticoagulation. Hematology following. 10) Mild transaminitis: monitor for now. RUQ US unremarkable. 11) Diahrrea: C diff negative 12) Urinary retention: manrique was exchanged 09/17, patient had retention again so it could not be removed. Recs: monitor fever off antibiotics will sign off Yasmin Alvarez MD Infectious Diseases Health Insurance Assessor [facility] [id number] [phone] O [phone] Subjective Date of service: 09/26/18 Principal diagnosis: dvt - anemia Interval history: Remains on the vent o via trach, alert follows commands, no fever, noted diarrhea on rectal tube ROS: unable to obtain Objective - Exam Narrative Exam: Constitutional: alert pleasant in NAD Head, Ears, Nose: Normocephalic, atraumatic. External ears, nose normal Eyes: Conjunctivae/corneas clear. No icterus. No ptosis. Neck:+trach no secretion Oral: clear OP Cardiovascular: RRR Respiratory: CTA gonzalez GI: Soft, non-tender;+PEG Musculoskeletal: gonzalez arm edema Skin: No rash or abscess Hem/Lymphatic: No palpable cervical or supraclavicular nodes. No lymphangitis Psych: no agitation Neurological: asleep Rectal tube with diarrhea/ manrique - Constitutional Vitals: Vital Signs Temp Pulse Resp BP Pulse Ox 97.8 F 66 22 134/57 100 09/26/18 16:00 09/26/18 16:00 09/26/18 16:00 09/26/18 16:00 09/26/18 16:00 Temperature -Last 24 Hours Temperature 97.8 F Temperature 98.2 F Temperature 98.7 F Temperature 98.9 F Temperature 99.7 F Temperature 99.1 F - Labs CBC & Chem 7: 09/26/18 04:02 09/26/18 04:02 Labs: Abnormal lab results 09/25/18 09/26/18 09/26/18 Range/Units 23:57 04:02 04:02 RBC 2.98 L (3.65-5.03) M/mm3 Hgb 9.3 L (10.1-14.3) gm/dl Hct 27.7 L (30.3-42.9) % RDW 16.6 H (13.2-15.2) % BUN 29 H (7-17) mg/dL Creatinine 0.5 L (0.7-1.2) mg/dL Glucose 141 H (65-100) mg/dL POC Glucose 110 H (70-105) 09/26/18 09/26/18 Range/Units 05:04 11:40 RBC (3.65-5.03) M/mm3 Hgb (10.1-14.3) gm/dl Hct (30.3-42.9) % RDW (13.2-15.2) % BUN (7-17) mg/dL Creatinine (0.7-1.2) mg/dL Glucose (65-100) mg/dL POC Glucose 125 H 151 H (70-105)
[2018-09-26] MEDS: POTASSIUM CHLORIDE PO SCH (21:39)
[2018-09-27] MEDS: DILAUDID PO SCH ×3 (00:32→12:43)
[2018-09-27] MEDS: HumaLOG SUB-Q SCH ×3 (00:32→06:25)
--- NOTE | 2018-09-27 04:51 | Hem/Onc Progress Note ---
Assessment and Plan #. Bilateral posterior tibial and peroneal vein deep venous thrombosis, left leg edema. Arixtra was being used. - back on same #. h/o Thrombocytopenia. The patient was on heparin-based treatment. Later fondaparinux. HIT negative, plt now better #. Anemia. At admission, hemoglobin was normal. The patient received blood transfusion. deficiency workup low iron - Ferritin - b12 - folate normal . There may be a bleeding component. s/p Iv iron trial #. Pulmonary embolism study is negative. #. h/o Camryn infection. #. Chronic obstructive pulmonary disease. #. History of renal failure. Nephrology following. #. Respiratory failure, on ventilator. History of cardiomyopathy. - s/p trach 09/27 - leg dvt. peg tube done trach+ pt was HIT negative eliquis LTAC eval hb >9 - Patient Problems (1) Thrombocytopenia Current Visit: Yes Status: Acute (2) DVT (deep venous thrombosis) Current Visit: Yes Status: Acute (3) Anemia Current Visit: Yes Status: Acute Subjective Date of service: 09/27/18 Principal diagnosis: dvt - anemia Interval history: [facility] floor Objective - Constitutional Vitals: Last Vital Signs Temp 97.9 F 09/27/18 00:29 Pulse 78 09/27/18 00:29 Resp 18 09/27/18 00:29 BP 138/73 09/27/18 00:29 Pulse Ox 98 09/27/18 00:29 Pain Intensity (0-10): denies any pain General appearance: no acute distress Performance status: 4-completely disabled - EENT Eyes: EOM intact ENT: hearing intact, other (trach) Lymph node exam: negative cervical - Respiratory Respiratory effort: Positive: normal Respiratory: bilateral: CTA - Cardiovascular Heart Sounds: Present: S1 & S2 Extremities: No edema - Gastrointestinal General gastrointestinal: Present: soft, non-tender, other (peg) Rectal Exam: deferred - Genitourinary Female genitourinary: Present: deferred - Integumentary Integumentary: warm - Musculoskeletal Musculoskeletal: strength equal bilaterally - Neurologic Neurologic: moves all extremities - Labs Lab Results: Laboratory Results - last 24 hr 09/26/18 09/26/18 09/26/18 05:04 11:40 18:42 POC Glucose 125 H 151 H 117 H 09/27/18 00:36 POC Glucose 144 H Medications & Allergies - Medications Allergies/Adverse Reactions: Allergies No Known Allergies Allergy (Unverified 08/15/18 16:49) Home Medications: Home Medications Medication Instructions Recorded Confirmed Last Taken Type Carvedilol 6.25 mg PO BID 08/15/18 08/15/18 Unknown History DULoxetine 60 mg PO QDAY 08/15/18 08/15/18 Unknown History Gabapentin 600 mg PO Q6HR PRN 08/15/18 08/15/18 Unknown History Methylphenidate 5 mg PO TID 08/15/18 08/15/18 Unknown History Morphabond ER 60 mg PO Q12HR 08/15/18 08/15/18 Unknown History Pravastatin Sodium 10 mg PO QDAY 08/15/18 08/15/18 Unknown History Tizanidine HCl 4 mg PO Q12HR 08/15/18 08/15/18 Unknown History oxyCODONE /ACETAMINOPHEN 7.5 - 325 mg PO Q8HR 08/15/18 08/15/18 Unknown History ALBUTEROL Inhaler(NF) 90 mcg IH TID 08/29/18 08/29/18 Unknown History Omeprazole-Bicarb 40-1,100 Cap 40 mg PO DAILY 08/29/18 08/29/18 Unknown History Active Medications: Generic Name Dose Route Start Last Admin Trade Name Freq PRN Reason Stop Dose Admin Acetaminophen 650 mg 08/15/18 22:12 09/24/18 00:17 Tylenol PO 650 mg Q4H PRN Administration Pain MILD(1-3)/Fever >100.5/MONDRAGON Albuterol 2.5 mg 08/17/18 17:00 Proventil IH Q3HRT PRN Shortness Of Breath Lipase/Protease/Amylase 1 each 09/17/18 09:06 Alis Elizabeth 10,500 Unit FEEDTUBE PRN PRN For Clogged Feeding Tube Apixaban 10 mg 09/22/18 10:00 09/26/18 21:39 Eliquis PO 09/28/18 22:01 10 mg Q12HR LAMAR Administration Apixaban 5 mg 09/29/18 10:00 Eliquis PO Q12HR LAMAR Arformoterol Tartrate 15 mcg 08/18/18 20:00 09/26/18 20:48 Brovana Nebu IH 15 mcg Q12HRT LAMAR Administration Budesonide 0.5 mg 08/18/18 20:00 09/26/18 20:48 Pulmicort IH 0.5 mg Q12HRT LAMAR Administration Carvedilol 3.125 mg 09/20/18 10:00 09/26/18 21:39 Coreg PO 3.125 mg BID LAMAR Administration Clonidine HCl 0.2 mg 09/25/18 10:00 09/25/18 10:47 Catapres-Tts Patch TD 0.2 mg Pearson LAMAR Administration Famotidine 20 mg 09/05/18 10:00 09/26/18 21:39 Pepcid PO 20 mg BID LAMAR Administration Furosemide 20 mg 09/18/18 12:00 09/26/18 09:42 Lasix IV 20 mg QDAY LAMAR Administration Hydralazine HCl 10 mg 08/19/18 13:59 09/19/18 02:27 Apresoline IV 10 mg Q3H PRN Administration Hydralazine HCl 25 mg 09/01/18 14:00 09/26/18 21:39 Apresoline PO 25 mg Q8HR [facility] Administration Hydromorphone HCl 2 mg 09/06/18 12:00 09/27/18 00:32 Dilaudid PO 2 mg Q6HR [facility] Administration Hydrophilic Ointment 1 applic 08/15/18 21:55 09/01/18 09:07 Vaseline Lip Therapy TP 1 applic Q2HR PRN Administration Dry Lips Insulin Human Lispro 0 unit 09/04/18 18:00 09/27/18 03:55 Humalog SUB-Q Not Given Q6HR [facility] Protocol Metoclopramide HCl 5 mg 08/15/18 22:50 09/17/18 10:48 Reglan IV 5 mg Q6H PRN Administration Nausea And Vomiting Midazolam HCl 1 mg 09/07/18 09:23 09/26/18 03:36 Versed IV 1 mg Q4H PRN Administration AGITATION Ondansetron HCl 4 mg 08/15/18 22:12 08/31/18 17:52 Zofran IV 4 mg Q8H PRN Administration Nausea And Vomiting Potassium Chloride 40 meq 09/20/18 22:00 09/26/18 21:39 Potassium Chloride PO 40 meq QDAY@2200 LAMAR Administration Quetiapine Fumarate 100 mg 09/19/18 22:00 09/26/18 21:38 Seroquel PO 100 mg BID LAMAR Administration Quetiapine Fumarate 100 mg 09/19/18 22:00 09/26/18 21:40 Seroquel PO 100 mg QHS LAMAR Administration Simple Syrup 15 ml 09/17/18 09:06 Simple Syrup FEEDTUBE PRN PRN Hypoglycemia Simple Syrup 30 ml 09/17/18 09:06 Simple Syrup FEEDTUBE PRN PRN Hypoglycemia Sodium Bicarbonate 325 mg 09/17/18 09:06 Sodium Bicarbonate FEEDTUBE PRN PRN For Clogged Feeding Tube Sodium Chloride 10 ml 08/15/18 22:12 09/17/18 21:51 Sodium Chloride Flush Syringe 10 Ml IV 10 ml PRN PRN Administration LINE FLUSH
[2018-09-27] MEDS: APRESOLINE PO SCH (05:24)
[2018-09-27 07:26] LABS: Hematocrit 30.4 % (30.3-42.9); Mean Corpuscular HGB Conc 33 % (30-34); Mean Corpuscular Volume 94 fl (79-97); Platelet Count 163 K/mm3 (140-440); Red Blood Count 3.23 M/mm3 (3.65-5.03); Red Cell Distribution Width 16.4 % (13.2-15.2)
[2018-09-27 07:43] LABS: BUN/Creatinine Ratio 47; Blood Urea Nitrogen 28 mg/dL (7-17); Calcium 9.7 mg/dL (8.4-10.2); Hemolysis Index 3
--- NOTE | 2018-09-27 07:57 | Progress Note ---
Assessment and Plan Assessment and plan: patient is 68-year-old female patient with history of COPD, arthritis s/p C-spine and lumbar spine surgery, Chronic pain syndrome who was found unconscious in her feces and vomitus. Patient's family was in [place] for a golf tournament. Patient was brought to the emergency room noted to be severely hypoxic and tachypneic, promptly intubated placed on ventilatory support and admitted to ICU. She was also noted to have possible aspiration pneumonia, completed treatment recommended by ID .currently monitoring off antibiotics . She also had acute gastroenteritis, acute kidney injury, nonspecific elevation of troponins as well as septic shock evaluated by multiple specialties successfully weaned and extubated on 08/29/2018 however patient again went into acute respiratory failure requiring reintubation on 09/02/2018. She had trach 09/14/18 and PEG 09/21/18. She is also being treated for acute b/l DVT with Eliquis. s/p 4units of PRBC transfusion for anemia, no acute source of active bleeding so far. She has improved, now off vent. stable to transfer to [facility] today. awaiting LTAC placement. Acute hypoxic hypercapnic respiratory failure; extubated 08/29/18 Re Intubated 09/02/18, was vent dependent, trach done, now off vent s/p trach on 09/14/18 Status post bronchoscopy, BAL negative cont nebulizers, pulmonary following Dysphagia - s/p PEG done by IR 09/21/18, cont TF Hypokalemia, cont to replete, normal Mg level, likely from diarrhea Sepsis; new fever 102.6 on 09/18. Initially treated for aspiration pneumonia and Camryn glabrata fungemia; s/p micafungin, meropenem and Vanco per ID. treated for possible C.diff with vancomycin po, C.def negative. monitor off abx now Recent Camryn glabrata fungemia: treated Thrombocytopenia: Platelet count is Stable Lovenox changed to Arixtra, then to Eliquis /Anemia: s/p transfusion[4 PRBC] Stool for occult blood x 2 negative, hematology following -Recent EGD at [facility] 08/08/2018 revealing irregular Z line, gastritis and small hiatal hernia - Recent colonoscopy at [facility] 08/08/2018 revealing sigmoid polyp, transverse colon polyps, inflamed hemorrhoids and diverticulosis Hypomagnesemia; Hypernatremia; resolved, Bileral lower extremity DVT; anticoagulation with arixtra CTA chest negative for PE Hypertension; continue current antihypertensives Severe malnutrition/hypoalbuminemia; Dietitian following, On TF Acute kidney injury; probably secondary to ATN, Resolved, Acute systolic congestive heart failure; EF 25-30%, Cardio following, monitor ins/os Previous echo 03/30/2016 at [facility] revealed normal LVEF Previous stress MPI 03/29/2016 at [facility] revealed no ischemia Elevated Transaminases; resolved DVT prophylaxis; on [facility] Hospitalist Physical - Constitutional Vitals: Temp Pulse Resp BP Pulse Ox 97.9 F 78 18 138/73 98 09/27/18 00:29 09/27/18 00:29 09/27/18 00:29 09/27/18 00:29 09/27/18 00:29 General appearance: Present: no acute distress Results - Labs CBC & Chem 7: 09/27/18 06:12 09/27/18 06:12 Labs: Laboratory Last Values WBC 6.5 K/mm3 (4.5-11.0) 09/27/18 06:12 RBC 3.23 M/mm3 (3.65-5.03) L 09/27/18 06:12 Hgb 10.0 gm/dl (10.1-14.3) L 09/27/18 06:12 Hct 30.4 % (30.3-42.9) 09/27/18 06:12 MCV 94 fl (79-97) 09/27/18 06:12 MCH 31 pg (28-32) 09/27/18 06:12 MCHC 33 % (30-34) 09/27/18 06:12 RDW 16.4 % (13.2-15.2) H 09/27/18 06:12 Plt Count 163 K/mm3 (140-440) 09/27/18 06:12 Lymph % (Auto) 30.8 % (13.4-35.0) 09/24/18 03:41 Dickson % (Auto) 12.3 % (0.0-7.3) H 09/24/18 03:41 Eos % (Auto) 0.0 % (0.0-4.3) 09/24/18 03:41 Baso % (Auto) 0.5 % (0.0-1.8) 09/24/18 03:41 Lymph # 1.4 K/mm3 (1.2-5.4) 09/24/18 03:41 Dickson # 0.6 K/mm3 (0.0-0.8) 09/24/18 03:41 Eos # 0.0 K/mm3 (0.0-0.4) 09/24/18 03:41 Baso # 0.0 K/mm3 (0.0-0.1) 09/24/18 03:41 Add Manual Diff Complete 09/07/18 05:40 Total Counted 100 09/07/18 05:40 Seg Neutrophils % 56.4 % (40.0-70.0) 09/24/18 03:41 Seg Neuts % (Manual) 80.0 % (40.0-70.0) H 09/07/18 05:40 Band Neutrophils % 0 % 09/07/18 05:40 Lymphocytes % (Manual) 15.0 % (13.4-35.0) 09/07/18 05:40 Reactive Lymphs % (Man) 0 % 09/07/18 05:40 Monocytes % (Manual) 2.0 % (0.0-7.3) 09/07/18 05:40 Eosinophils % (Manual) 0 % (0.0-4.3) 09/07/18 05:40 Basophils % (Manual) 0 % (0.0-1.8) 09/07/18 05:40 Metamyelocytes % 2.0 % 09/07/18 05:40 Myelocytes % 1.0 % 09/07/18 05:40 Promyelocytes % 0 % 09/07/18 05:40 Blast Cells % 0 % 09/07/18 05:40 Nucleated RBC % 1.0 % (0.0-0.9) H 09/07/18 05:40 Seg Neutrophils # 2.6 K/mm3 (1.8-7.7) 09/24/18 03:41 Seg Neutrophils # Man 4.3 K/mm3 (1.8-7.7) 09/07/18 05:40 Band Neutrophils # 0.0 K/mm3 09/07/18 05:40 Abs Lymphs (Manual) 3262 cells/uL (850-3900) 08/19/18 14:32 Lymphocytes # (Manual) 0.8 K/mm3 (1.2-5.4) L 09/07/18 05:40 Abs React Lymphs (Man) 0.0 K/mm3 09/07/18 05:40 Monocytes # (Manual) 0.1 K/mm3 (0.0-0.8) 09/07/18 05:40 Eosinophils # (Manual) 0.0 K/mm3 (0.0-0.4) 09/07/18 05:40 Basophils # (Manual) 0.0 K/mm3 (0.0-0.1) 09/07/18 05:40 Metamyelocytes # 0.1 K/mm3 09/07/18 05:40 Myelocytes # 0.1 K/mm3 09/07/18 05:40 Promyelocytes # 0.0 K/mm3 09/07/18 05:40 Blast Cells # 0.0 K/mm3 09/07/18 05:40 WBC Morphology Not Reportable 09/07/18 05:40 Hypersegmented Neuts Not Reportable 09/07/18 05:40 Hyposegmented Neuts Not Reportable 09/07/18 05:40 Hypogranular Neuts Not Reportable 09/07/18 05:40 Smudge Cells Not Reportable 09/07/18 05:40 Toxic Granulation Not Reportable 09/07/18 05:40 Toxic Vacuolation Not Reportable 09/07/18 05:40 Dohle Bodies Not Reportable 09/07/18 05:40 Pelger-Huet Anomaly Not Reportable 09/07/18 05:40 Rosy Rods Not Reportable 09/07/18 05:40 Platelet Estimate Consistent w auto 09/07/18 05:40 Clumped Platelets Not Reportable 09/07/18 05:40 Plt Clumps, EDTA Not Reportable 09/07/18 05:40 Large Platelets Rare 09/07/18 05:40 Giant Platelets Not Reportable 09/07/18 05:40 Platelet Satelliting Not Reportable 09/07/18 05:40 Plt Morphology Comment Not Reportable 09/07/18 05:40 RBC Morphology Not Reportable 09/07/18 05:40 Dimorphic RBCs Not Reportable 09/07/18 05:40 Polychromasia Not Reportable 09/07/18 05:40 Hypochromasia Rare 09/07/18 05:40 Poikilocytosis Not Reportable 09/07/18 05:40 Anisocytosis Few 09/07/18 05:40 Microcytosis Not Reportable 09/07/18 05:40 Macrocytosis Not Reportable 09/07/18 05:40 Spherocytes Not Reportable 09/07/18 05:40 Pappenheimer Bodies Not Reportable 09/07/18 05:40 Sickle Cells Not Reportable 09/07/18 05:40 Target Cells Not Reportable 09/07/18 05:40 Tear Drop Cells Not Reportable 09/07/18 05:40 Ovalocytes Not Reportable 09/07/18 05:40 Helmet Cells Not Reportable 09/07/18 05:40 Hernandez-[place] Bodies Not Reportable 09/07/18 05:40 [place] Rings Not Reportable 09/07/18 05:40 Bertha Cells Not Reportable 09/07/18 05:40 Bite Cells Not Reportable 09/07/18 05:40 Crenated Cell Not Reportable 09/07/18 05:40 Elliptocytes Not Reportable 09/07/18 05:40 Acanthocytes (Spur) Not Reportable 09/07/18 05:40 Rouleaux Not Reportable 09/07/18 05:40 Hemoglobin C Crystals Not Reportable 09/07/18 05:40 Schistocytes Not Reportable 09/07/18 05:40 Malaria parasites Not Reportable 09/07/18 05:40 Ceasar Bodies Not Reportable 09/07/18 05:40 Hem Pathologist Commnt No 09/07/18 05:40 PT 14.2 Sec. (12.2-14.9) 09/14/18 04:55 INR 1.04 (0.87-1.13) 09/14/18 04:55 D-Dimer 2768.33 ng/mlDDU (0-234) H 08/15/18 18:31 Heparin Anti-Xa, Unfract Negative (Negative) 08/22/18 15:29 POC ABG pH 7.516 (7.35-7.45) H 09/24/18 23:24 POC ABG pCO2 37.6 (35-45) 09/24/18 23:24 POC ABG pO2 94 (80-105) 09/24/18 23:24 POC ABG HCO3 30.5 (22-26 mml/L) 09/24/18 23:24 POC ABG Total CO2 32 (23-27mmol/L) 09/24/18 23:24 POC ABG O2 Sat 98 09/24/18 23:24 POC ABG Base Excess 8 ((-2) - (+3)mmol/L) 09/24/18 23:24 VBG pH 7.187 (7.320-7.420) L* 08/15/18 18:19 FiO2 40 % 09/24/18 23:24 Sodium 141 mmol/L (137-145) 09/27/18 06:12 Potassium 4.0 mmol/L (3.6-5.0) 09/27/18 06:12 Chloride 99.5 mmol/L (98-107) 09/27/18 06:12 Carbon Dioxide 28 mmol/L (22-30) 09/27/18 06:12 Anion Gap 18 mmol/L 09/27/18 06:12 BUN 28 mg/dL (7-17) H 09/27/18 06:12 Creatinine 0.6 mg/dL (0.7-1.2) L 09/27/18 06:12 Estimated GFR > 60 ml/min 09/27/18 06:12 BUN/Creatinine Ratio 47 % 09/27/18 06:12 Glucose 121 mg/dL (65-100) H 09/27/18 06:12 POC Glucose 126 (70-105) H 09/27/18 06:21 Hemoglobin A1c 6.4 % (4-6) H 08/15/18 23:09 Lactic Acid 1.20 mmol/L (0.7-2.0) 08/22/18 15:29 Calcium 9.7 mg/dL (8.4-10.2) 09/27/18 06:12 Phosphorus 3.60 mg/dL (2.5-4.5) 09/11/18 01:10 Magnesium 1.70 mg/dL (1.7-2.3) 09/18/18 04:20 Iron 26 ug/dL (37-170) L 09/07/18 05:40 TIBC 150 mcg/dL (250-450) L 09/07/18 05:40 Ferritin 375.0 ng/mL (13.0-400.0) 09/07/18 05:40 Total Bilirubin 0.50 mg/dL (0.1-1.2) 09/14/18 04:55 Direct Bilirubin < 0.2 mg/dL (0-0.2) 09/14/18 04:55 Indirect Bilirubin 0.3 mg/dL 09/14/18 04:55 AST 60 units/L (5-40) H 09/14/18 04:55 ALT 88 units/L (7-56) H 09/14/18 04:55 Alkaline Phosphatase 66 units/L (35-129) 09/14/18 04:55 Troponin T 0.317 ng/mL (0.00-0.029) H* D 08/18/18 13:39 C-Reactive Protein 5.00 mg/dL (0.00-1.30) H 08/25/18 05:20 Total Protein 5.6 g/dL (6.3-8.2) L 09/14/18 04:55 Albumin 2.2 g/dL (3.9-5) L 09/14/18 04:55 Albumin/Globulin Ratio 0.6 % 09/14/18 04:55 Triglycerides 197 mg/dL (2-149) H 08/22/18 06:45 Cholesterol 87 mg/dL (50-199) 08/15/18 18:31 LDL Cholesterol Direct 4 mg/dL (50-130) L 08/15/18 18:31 HDL Cholesterol 10 mg/dL (40-59) L 08/15/18 18:31 Cholesterol/HDL Ratio 8.70 % 08/15/18 18:31 Serotonin Release Assay See scanned results 08/22/18 15:29 Vitamin B12 388.4 pg/mL (211-911) 09/07/18 05:40 Folate 19.01 ng/mL (7.3-26.0) 09/07/18 05:40 Total Cortisol 21.4 mcg/dL () 08/25/18 08:52 Urine Color Straw (Yellow) 09/20/18 16:10 Urine Turbidity Clear (Clear) 09/20/18 16:10 Urine pH 9.0 (5.0-7.0) H 09/20/18 16:10 Ur Specific Jamul 1.006 (1.003-1.030) 09/20/18 16:10 Urine Protein <15 mg/dl mg/dL (Negative) 09/20/18 16:10 Urine Glucose (UA) Neg mg/dL (Negative) 09/20/18 16:10 Urine Ketones Neg mg/dL (Negative) 09/20/18 16:10 Urine Blood Lg (Negative) 09/20/18 16:10 Urine Nitrite Neg (Negative) 09/20/18 16:10 Urine Bilirubin Neg (Negative) 09/20/18 16:10 Urine Urobilinogen < 2.0 mg/dL (<2.0) 09/20/18 16:10 Ur Leukocyte Esterase Neg (Negative) 09/20/18 16:10 Urine WBC (Auto) 4.0 /HPF (0.0-6.0) 09/20/18 16:10 Urine RBC (Auto) > 182.0 /HPF (0.0-6.0) 09/20/18 16:10 Urine Bacteria (Auto) 1+ /HPF (Negative) 09/20/18 16:10 Urine WBC Clumps 2+ /HPF 08/15/18 19:15 Amorphous Crystals 1+ 08/15/18 19:15 Hyaline Casts 54 /LPF 08/15/18 19:15 Granular Casts 14 /LPF 08/15/18 19:15 Urine Mucus Few /HPF 09/20/18 16:10 Vancomycin Trough 28.6 ug/mL (5.0-20.0) H 09/06/18 14:40 Salicylates < 0.3 mg/dL (2.8-20.0) L 08/15/18 19:14 Urine Opiates Screen Presumptive positive 08/15/18 19:15 Urine Methadone Screen Presumptive negative 08/15/18 19:15 Acetaminophen < 5.0 ug/mL (10.0-30.0) L 08/15/18 19:14 Ur Barbiturates Screen Presumptive negative 08/15/18 19:15 Ur Phencyclidine Scrn Presumptive negative 08/15/18 19:15 Ur Amphetamines Screen Presumptive negative 08/15/18 19:15 U Benzodiazepines Scrn Presumptive negative 08/15/18 19:15 Urine Cocaine Screen Presumptive negative 08/15/18 19:15 U Marijuana (THC) Screen Presumptive negative 08/15/18 19:15 Drugs of Abuse Note Disclamer 08/15/18 19:15 Heparin-induced Plt Ab Negative (Negative) 08/22/18 15:29 UF Heparin High Dose 0 % Release 08/22/18 15:29 NAZIA UFH Low Dose 0.1 0 % Release 08/22/18 15:29 NAZIA UFH Low Dose 0.5 0 % Release 08/22/18 15:29 Lymph Enumerat CD4/CD8 1.98 (0.86-5.00) 08/19/18 14:32 % CD3 Cells 44 % (57-85) L 08/19/18 14:32 Absolute CD3 Count 1451 cells/uL (840-3060) 08/19/18 14:32 % CD4 Cells 30 % (30-61) 08/19/18 14:32 Absolute CD4 Count 1004 cells/uL (490-1740) 08/19/18 14:32 % CD8 Cells 15 % (12-42) 08/19/18 14:32 Absolute CD8 Count 508 cells/uL (180-1170) 08/19/18 14:32 % CD19 Cells 41 % (6-29) H 08/19/18 14:32 Absolute CD19 Count 1290 cells/uL (110-660) H 08/19/18 14:32 C. difficile Tox (PCR) Negative (Negative) 09/20/18 13:51 C. difficile Toxin A&B Negative (Negative) 08/19/18 14:00 HIV 1&2 Antibody Rapid Non react (Non React) 08/18/18 13:39 HIV P24 Antigen Non react (Non React) 08/18/18 13:39 Miscellaneous Test Flexitest 1 09/15/18 11:35 Blood Type O POSITIVE 09/14/18 12:00 Antibody Screen Negative 09/14/18 12:00 Crossmatch See Detail 09/14/18 12:00 Active Medications - Current Medications Current Medications: Generic Name Dose Route Start Last Admin Trade Name Freq PRN Reason Stop Dose Admin Acetaminophen 650 mg 08/15/18 22:12 09/24/18 00:17 Tylenol PO 650 mg Q4H PRN Administration Pain MILD(1-3)/Fever >100.5/MONDRAGON Albuterol 2.5 mg 08/17/18 17:00 Proventil IH Q3HRT PRN Shortness Of Breath Lipase/Protease/Amylase 1 each 09/17/18 09:06 Pancretevine 10,500 Unit FEEDTUBE PRN PRN For Clogged Feeding Tube Apixaban 10 mg 09/22/18 10:00 09/26/18 21:39 Eliquis PO 09/28/18 22:01 10 mg Q12HR LAMAR Administration Apixaban 5 mg 09/29/18 10:00 Eliquis PO Q12HR LAMAR Arformoterol Tartrate 15 mcg 08/18/18 20:00 09/26/18 20:48 Brovana Nebu IH 15 mcg Q12HRT LAMAR Administration Budesonide 0.5 mg 08/18/18 20:00 09/26/18 20:48 Pulmicort IH 0.5 mg Q12HRT LAMAR Administration Carvedilol 3.125 mg 09/20/18 10:00 09/26/18 21:39 Coreg PO 3.125 mg BID LAMAR Administration Clonidine HCl 0.2 mg 09/25/18 10:00 09/25/18 10:47 Catapres-Tts Patch TD 0.2 mg Pearson LAMAR Administration Famotidine 20 mg 09/05/18 10:00 09/26/18 21:39 Pepcid PO 20 mg BID [facility] Administration Furosemide 20 mg 09/18/18 12:00 09/26/18 09:42 Lasix IV 20 mg QDAY LAMAR Administration Hydralazine HCl 10 mg 08/19/18 13:59 09/19/18 02:27 Apresoline IV 10 mg Q3H PRN Administration Hydralazine HCl 25 mg 09/01/18 14:00 09/27/18 05:24 Apresoline PO 25 mg Q8HR LAMAR Administration Hydromorphone HCl 2 mg 09/06/18 12:00 09/27/18 05:25 Dilaudid PO 2 mg Q6HR [facility] Administration Hydrophilic Ointment 1 applic 08/15/18 21:55 09/01/18 09:07 Vaseline Lip Therapy TP 1 applic Q2HR PRN Administration Dry Lips Insulin Human Lispro 0 unit 09/04/18 18:00 09/27/18 06:25 Humalog SUB-Q Not Given Q6HR [facility] Protocol Metoclopramide HCl 5 mg 08/15/18 22:50 09/17/18 10:48 Reglan IV 5 mg Q6H PRN Administration Nausea And Vomiting Midazolam HCl 1 mg 09/07/18 09:23 09/26/18 03:36 Versed IV 1 mg Q4H PRN Administration AGITATION Ondansetron HCl 4 mg 08/15/18 22:12 08/31/18 17:52 Zofran IV 4 mg Q8H PRN Administration Nausea And Vomiting Potassium Chloride 40 meq 09/20/18 22:00 09/26/18 21:39 Potassium Chloride PO 40 meq QDAY@2200 LAMAR Administration Quetiapine Fumarate 100 mg 09/19/18 22:00 09/26/18 21:38 Seroquel PO 100 mg BID LAMAR Administration Quetiapine Fumarate 100 mg 09/19/18 22:00 09/26/18 21:40 Seroquel PO 100 mg QHS LAMAR Administration Simple Syrup 15 ml 09/17/18 09:06 Simple Syrup FEEDTUBE PRN PRN Hypoglycemia Simple Syrup 30 ml 09/17/18 09:06 Simple Syrup FEEDTUBE PRN PRN Hypoglycemia Sodium Bicarbonate 325 mg 09/17/18 09:06 Sodium Bicarbonate FEEDTUBE PRN PRN For Clogged Feeding Tube Sodium Chloride 10 ml 08/15/18 22:12 09/17/18 21:51 Sodium Chloride Flush Syringe 10 Ml IV 10 ml PRN PRN Administration LINE FLUSH Nutrition/Malnutrition Assess - Dietary Evaluation Nutrition/Malnutrition Findings: Nutrition Notes Start: 08/17/18 13:57 Freq: Status: Active Protocol: Document 09/22/18 11:43 SA (Rec: 09/22/18 11:47 [facility]-[id number]) Co-Sign 09/22/18 11:43 LP Nutrition Notes Initial or Follow up Reassessment Current Diagnosis Sepsis,Hypertension,Heart Failure,Respiratory Failure Other Pertinent Diagnosis Dysphagia, bilat LE DVT Current Diet TF - Vital High Protein @ 55 ml/hr Labs/Tests BUN: 21 Cr: 0.6 Pertinent Medications Lasix Humalog Height 5 ft 7 in Weight 93.4 kg Walls Body Weight (kg) 61.36 BMI 32.2 Subjective/Other Information PEG placed yesterday. TF running at goal rate and pt tolerating TF. Percent of energy/protein needs met: 100%/94% Burn Absent Trauma Absent #1 Nutrition Diagnosis Inadequate oral intake Diagnosis Progress(for reassessment Continues documentation) Is patient on ventilator? Yes Is Patient Ambulatory and/or Out of Bed No REE-([facility]-confined to bed) 1801.356 Kcal/Kg value to use for calculation 14 Approximate Energy Requirements Using 1308 kcal/Kg Calculation Used for Recommendations Kcal/kg Additional Notes Pro needs 2g/kg IBW: 123g/day Fluid needs 1ml/kcal Nutrition Intervention Nutrition Support: Vital High Protein at 55ml/hr. Provide 50ml water flush q4h. Kcal 1,320 Protein (gm) 116 Fluid (mL) 1,103 Goal #1 TF tolerance Goal #2 TF to meet at least 75% of kcal and pro needs via TF. Anticipated Discharge Needs: unable to determine at this time Follow-Up By: 09/29/18 Additional Comments F/U: TF tolerance
[2018-09-27] MEDS: BROVANA NEBU IH SCH (08:12)
[2018-09-27] MEDS: PULMICORT IH SCH (08:12)
[2018-09-27 09:01] VITALS: BP 123/57
[2018-09-27] MEDS: ELIQUIS PO SCH (09:10)
[2018-09-27] MEDS: COREG PO SCH (09:11)
[2018-09-27] MEDS: PEPCID PO SCH (09:11)
[2018-09-27] MEDS: LASIX IV SCH (09:11)
--- NOTE | 2018-09-27 09:33 | Discharge Summary ---
Providers - Providers Date of Admission: 08/15/18 19:13 Date of discharge: 09/27/18 Attending physician: JAILYN DAVIS 08/15/18 22:12 Consult to Physician [CONS] Routine Comment: DR HORNE NOTIFIED [id number] Consulting Provider: ROSALINE MCQUEEN Physician Instructions: Reason For Exam: acute respiratory failure 08/16/18 07:05 Consult to Physician [CONS] Routine Comment: Consulting Provider: RODRIGUEZ FRITZ Physician Instructions: Reason For Exam: CHANDANA 08/17/18 12:03 Consult to Dietitian/Nutrition [CONS] Routine Physician Instructions: Reason For Exam: Reason for Consult: Write/Manage Tube Feeding 08/17/18 15:55 Consult to Dietitian/Nutrition [CONS] Routine Physician Instructions: Assess nutrtn needs, initiate, modify, manage TF Reason For Exam: Reason for Consult: Write/Manage Tube Feeding Reason for Consult: Write/Manage Tube Feeding 08/18/18 10:55 Consult to Physician [CONS] Routine Comment: Consulting Provider: RUDOLPH ORTIZ Physician Instructions: Reason For Exam: positive B/C, fever 08/26/18 10:29 Physical Therapy Evaluation and Treat [CONS] Routine Comment: Reason For Exam: Deconditioning 08/26/18 11:52 Consult to PICC Line RN [CONS] Urgent Reason For Exam: insert PICC and remove IJ Type Line:: PICC 08/29/18 12:05 Speech Therapy Evaluation and Treat [CONS] Routine Reason For Exam: dysphagia screen 09/02/18 10:41 Consult to Dietitian/Nutrition [CONS] Routine Physician Instructions: Assess nutrtn needs, initiate, modify, manage TF Reason For Exam: Reason for Consult: Write/Manage Tube Feeding Reason for Consult: Write/Manage Tube Feeding 09/05/18 12:46 Consult to Physician [CONS] Routine Comment: Consulting Provider: THOMAS PEÑA Physician Instructions: Reason For Exam: VTE (DVT +/- P.E) 09/05/18 12:55 Consult to Physician [CONS] Routine Comment: Consulting Provider: REGLA YE Physician Instructions: Reason For Exam: Tracheostomy evaluation 09/06/18 08:40 Consult to Physician [CONS] Routine Comment: Consulting Provider: JAQUELINE LOPEZ Physician Instructions: Reason For Exam: Thrombocytopenia/DVT LE/on Lovenox 09/14/18 15:51 Consult to Physician [CONS] Routine Comment: Consulting Provider: THOMAS LEMUS Physician Instructions: could not transilluminate on EGD Reason For Exam: need for percutaneous G tube 09/16/18 15:07 Physical Therapy Evaluation and Treat [CONS] Routine Comment: Reason For Exam: Pt has been in hospital for 30 days and been intub 09/16/18 15:36 Consult to Dietitian/Nutrition [CONS] Routine Physician Instructions: Assess nutrtn needs, initiate, modify, manage TF Reason For Exam: Reason for Consult: Write/Manage Tube Feeding Reason for Consult: Write/Manage Tube Feeding 09/19/18 14:28 Consult to PICC Line RN [CONS] Urgent Reason For Exam: Mid-line placement Type Line:: Midline 09/19/18 22:32 Consult to Dietitian/Nutrition [CONS] Routine Physician Instructions: Assess nutrtn needs, initiate, modify, manage TF Reason For Exam: Reason for Consult: Write/Manage Tube Feeding Reason for Consult: Write/Manage Tube Feeding Primary care physician: [employer] Hospitalization Reason for admission: altered level of consciousness/acute respiratory failure Condition: Stable Pertinent studies: CT head Chest x-ray CT abdomen and pelvis CTA chest Echocardiogram Renal ultrasound Lower extremity venous Doppler CT head Tracheostomy PEG placement Hospital course: patient is 68-year-old female patient with history of COPD, arthritis s/p C-spine and lumbar spine surgery, Chronic pain syndrome who was found unconscious in her feces and vomitus. Patient's family was in [place] for a golf tournament. Patient was brought to the emergency room noted to be severely hypoxic and tachypneic, promptly intubated placed on ventilatory support and admitted to ICU. She was also noted to have possible aspiration pneumonia, completed treatment recommended by ID .currently monitoring off antibiotics . She also had acute gastroenteritis, acute kidney injury, nonspecific elevation of troponins as well as septic shock evaluated by multiple specialties successfully weaned and extubated on 08/29/2018 however patient again went into acute respiratory failure requiring reintubation on 09/02/2018. She had trach 09/14/18 and PEG 09/21/18. She is also being treated for acute b/l DVT with Eliquis. s/p 4units of PRBC transfusion for anemia, no acute source of active bleeding so far. She has improved, now off vent. stable to transfer to [facility] today. LTAC placement today Acute hypoxic hypercapnic respiratory failure; extubated 08/29/18 Re Intubated 09/02/18, was vent dependent, trach done, now off vent s/p trach on 09/14/18 Status post bronchoscopy, BAL negative cont nebulizers, pulmonary following Dysphagia - s/p PEG done by IR 09/21/18, cont TF Hypokalemia, cont to replete, normal Mg level, likely from diarrhea Sepsis; new fever 102.6 on 09/18. Initially treated for aspiration pneumonia and Camryn glabrata fungemia; s/p micafungin, meropenem and Vanco per ID. treated for possible C.diff with vancomycin po, C.def negative. monitor off abx now Recent Camryn glabrata fungemia: treated Thrombocytopenia: Platelet count is Stable Lovenox changed to Arixtra, then to Eliquis /Anemia: s/p transfusion[4 PRBC] Stool for occult blood x 2 negative, hematology following -Recent EGD at [facility] 08/08/2018 revealing irregular Z line, gastritis and small hiatal hernia - Recent colonoscopy at [facility] 08/08/2018 revealing sigmoid polyp, transverse colon polyps, inflamed hemorrhoids and diverticulosis Hypomagnesemia; Hypernatremia; resolved, Bileral lower extremity DVT; anticoagulation with arixtra CTA chest negative for PE Hypertension; continue current antihypertensives Severe malnutrition/hypoalbuminemia; Dietitian following, On TF Acute kidney injury; probably secondary to ATN, Resolved, Acute systolic congestive heart failure; EF 25-30%, Cardio following, monitor ins/os Previous echo 03/30/2016 at [facility] revealed normal LVEF Previous stress MPI 03/29/2016 at [facility] revealed no ischemia Elevated Transaminases; resolved DVT prophylaxis; on Eliquis Disposition: [id number]/TX-[id number] MEDICARE CERT LT Time spent for discharge: 32min Core Measure Documentation - Palliative Care Palliative Care/ Comfort Measures: Not Applicable - Core Measures Any of the following diagnoses?: none Exam - Constitutional Vitals: Temp Pulse Resp BP Pulse Ox 98.7 F 85 18 123/57 95 09/27/18 07:51 09/27/18 08:20 09/27/18 08:20 09/27/18 07:51 09/27/18 08:09 General appearance: Present: no acute distress, other (status post tracheostomy on T piece) - EENT Eyes: Present: PERRL ENT: other (tracheostomy) - Neck Neck: Present: supple, normal ROM - Respiratory Respiratory effort: normal Respiratory: bilateral: diminished, rhonchi, negative: rales, wheezing - Cardiovascular Rhythm: regular Heart Sounds: Present: S1 & S2 - Extremities Extremities: no ischemia, No edema - Abdominal General gastrointestinal: Present: soft, non-tender, non-distended, other ((PEG in place) - Integumentary Integumentary: Present: clear, warm - Musculoskeletal Musculoskeletal: generalized weakness - Psychiatric Psychiatric: cooperative - Neurologic Neurologic: moves all extremities Plan Activity: advance as tolerated, fall precautions Diet: other ( Tube Feeds per protocol) Special Instructions: physical therapy, occupational therapy Additional Instructions: Transfer to LTAC today Follow up with: PRIMARY CARE, [Primary Care Provider] - 3-5 Days
--- NOTE | 2018-09-27 14:22 | Progress Note ---
Assessment and Plan - Patient Problems (1) Acute respiratory failure Current Visit: Yes Status: Acute (2) Altered mental status Current Visit: Yes Status: Acute (3) DVT (deep venous thrombosis) Current Visit: Yes Status: Acute (4) Dilated cardiomyopathy Current Visit: Yes Status: Acute (5) Acute renal failure Current Visit: Yes Status: Acute Subjective Date of service: 09/27/18 Principal diagnosis: dvt - anemia Objective Vital Signs - 12hr 09/27/18 09/27/18 09/27/18 07:51 08:00 08:09 Temperature 98.7 F Pulse Rate [ Anterior Bilateral Throughout] Respiratory 18 20 Rate Respiratory Rate [Anterior Bilateral Throughout] Blood Pressure 123/57 O2 Sat by Pulse 95 Oximetry O2 Sat by Pulse 95 Oximetry [ Assessment] 09/27/18 09/27/18 08:12 08:20 Temperature Pulse Rate [ 84 85 Anterior Bilateral Throughout] Respiratory Rate Respiratory 18 18 Rate [Anterior Bilateral Throughout] Blood Pressure O2 Sat by Pulse Oximetry O2 Sat by Pulse Oximetry [ Assessment] Constitutional: appears uncomfortable, other (elderly looking CF, normocephalic and atraumatic) Eyes: non-icteric ENT: oropharynx moist, other (s/p tracheostomy) Neck: supple, no lymphadenopathy, no JVD, other (no thyromegaly) Effort: normal Ascultation: Bilateral: diminished breath sounds, rales, rhonchi (improved) Percussion: Bilateral: not dull Cardiovascular: regular rate and rhythm Gastrointestinal: normoactive bowel sounds, soft, non-tender, non-distended Integumentary: normal Extremities: no cyanosis, no ischemia or petechiae, edema (Left lower extremity) Neurologic: normal mental status, non-focal exam, pupils equal and round, CN II- XII normal, motor strength normal and Psychiatric: mood appropriate, affect normal CBC and BMP: 09/27/18 06:12 09/27/18 06:12 ABG, PT/INR, D-dimer: ABG POC ABG pH 7.516 (7.35-7.45) H 09/24/18 23:24 POC ABG pCO2 37.6 (35-45) 09/24/18 23:24 POC ABG pO2 94 (80-105) 09/24/18 23:24 POC ABG HCO3 30.5 (22-26 mml/L) 09/24/18 23:24 POC ABG Total CO2 32 (23-27mmol/L) 09/24/18 23:24 POC ABG O2 Sat 98 09/24/18 23:24 PT/INR, D-dimer PT 14.2 Sec. (12.2-14.9) 09/14/18 04:55 INR 1.04 (0.87-1.13) 09/14/18 04:55 D-Dimer 2768.33 ng/mlDDU (0-234) H 08/15/18 18:31 Abnormal lab findings: Abnormal Labs 08/15/18 08/15/18 08/15/18 17:52 17:52 17:52 WBC 12.7 H RBC 3.25 L Hgb Hct RDW Plt Count Lymph % (Auto) [place] % (Auto) Lymph # [place] # Seg Neutrophils % Seg Neuts % (Manual) Lymphocytes % (Manual) 6.0 L Nucleated RBC % Seg Neutrophils # Seg Neutrophils # Man Lymphocytes # (Manual) 0.8 L D-Dimer POC ABG pH POC ABG pCO2 POC ABG pO2 VBG pH Sodium Potassium 3.4 L Chloride 94.6 L Carbon Dioxide 17 L BUN 67 H Creatinine 3.5 H Glucose 131 H POC Glucose Hemoglobin A1c Lactic Acid 5.20 H* Calcium 7.6 L Phosphorus Magnesium Iron TIBC AST 887 H ALT 316 H Troponin T C-Reactive Protein Total Protein Albumin 3.1 L Triglycerides LDL Cholesterol Direct HDL Cholesterol Urine pH Urine WBC (Auto) Vancomycin Trough Salicylates Acetaminophen % CD3 Cells % CD19 Cells Absolute CD19 Count Miscellaneous Test Crossmatch 08/15/18 08/15/18 08/15/18 18:11 18:19 18:31 WBC RBC Hgb Hct RDW Plt Count Lymph % (Auto) [place] % (Auto) Lymph # [place] # Seg Neutrophils % Seg Neuts % (Manual) Lymphocytes % (Manual) Nucleated RBC % Seg Neutrophils # Seg Neutrophils # Man Lymphocytes # (Manual) D-Dimer 2768.33 H POC ABG pH 7.173 L POC ABG pCO2 47.8 H POC ABG pO2 177 H VBG pH 7.187 L* Sodium Potassium Chloride Carbon Dioxide BUN Creatinine Glucose POC Glucose Hemoglobin A1c Lactic Acid Calcium Phosphorus Magnesium Iron TIBC AST ALT Troponin T C-Reactive Protein Total Protein Albumin Triglycerides LDL Cholesterol Direct HDL Cholesterol Urine pH Urine WBC (Auto) Vancomycin Trough Salicylates Acetaminophen % CD3 Cells % CD19 Cells Absolute CD19 Count Miscellaneous Test Crossmatch 08/15/18 08/15/18 08/15/18 18:31 19:14 19:14 WBC RBC Hgb Hct RDW Plt Count Lymph % (Auto) [place] % (Auto) Lymph # [place] # Seg Neutrophils % Seg Neuts % (Manual) Lymphocytes % (Manual) Nucleated RBC % Seg Neutrophils # Seg Neutrophils # Man Lymphocytes # (Manual) D-Dimer POC ABG pH POC ABG pCO2 POC ABG pO2 VBG pH Sodium Potassium Chloride Carbon Dioxide BUN Creatinine Glucose POC Glucose Hemoglobin A1c Lactic Acid 2.70 H* Calcium Phosphorus Magnesium Iron TIBC AST ALT Troponin T 0.454 H* C-Reactive Protein Total Protein Albumin Triglycerides 356 H LDL Cholesterol Direct 4 L HDL Cholesterol 10 L Urine pH Urine WBC (Auto) Vancomycin Trough Salicylates < 0.3 L Acetaminophen % CD3 Cells % CD19 Cells Absolute CD19 Count Miscellaneous Test Crossmatch 08/15/18 08/15/18 08/15/18 19:14 19:15 23:09 WBC RBC Hgb Hct RDW Plt Count Lymph % (Auto) [place] % (Auto) Lymph # [place] # Seg Neutrophils % Seg Neuts % (Manual) Lymphocytes % (Manual) Nucleated RBC % Seg Neutrophils # Seg Neutrophils # Man Lymphocytes # (Manual) D-Dimer POC ABG pH POC ABG pCO2 POC ABG pO2 VBG pH Sodium Potassium Chloride Carbon Dioxide BUN Creatinine Glucose POC Glucose Hemoglobin A1c Lactic Acid 3.20 H* Calcium Phosphorus Magnesium Iron TIBC AST ALT Troponin T C-Reactive Protein Total Protein Albumin Triglycerides LDL Cholesterol Direct HDL Cholesterol Urine pH Urine WBC (Auto) 17.0 H Vancomycin Trough Salicylates Acetaminophen < 5.0 L % CD3 Cells % CD19 Cells Absolute CD19 Count Miscellaneous Test Crossmatch 08/15/18 08/16/18 08/16/18 23:09 01:41 05:38 WBC RBC 3.07 L Hgb 9.8 L Hct 28.7 L RDW Plt Count Lymph % (Auto) [place] % (Auto) Lymph # [place] # Seg Neutrophils % Seg Neuts % (Manual) 84.0 H Lymphocytes % (Manual) 6.0 L Nucleated RBC % 4.0 H Seg Neutrophils # Seg Neutrophils # Man Lymphocytes # (Manual) 0.5 L D-Dimer POC ABG pH 7.323 L POC ABG pCO2 34.7 L POC ABG pO2 78 L VBG pH Sodium Potassium Chloride Carbon Dioxide BUN Creatinine Glucose POC Glucose Hemoglobin A1c 6.4 H Lactic Acid Calcium Phosphorus Magnesium Iron TIBC AST ALT Troponin T C-Reactive Protein Total Protein Albumin Triglycerides LDL Cholesterol Direct HDL Cholesterol Urine pH Urine WBC (Auto) Vancomycin Trough Salicylates Acetaminophen % CD3 Cells % CD19 Cells Absolute CD19 Count Miscellaneous Test Crossmatch 08/16/18 08/16/18 08/17/18 05:38 22:43 03:42 WBC RBC Hgb Hct RDW Plt Count Lymph % (Auto) [place] % (Auto) Lymph # [place] # Seg Neutrophils % Seg Neuts % (Manual) Lymphocytes % (Manual) Nucleated RBC % Seg Neutrophils # Seg Neutrophils # Man Lymphocytes # (Manual) D-Dimer POC ABG pH POC ABG pCO2 POC ABG pO2 VBG pH Sodium Potassium 2.9 L* 3.1 L 2.9 L* Chloride 108.8 H 111.9 H Carbon Dioxide 17 L 19 L 21 L BUN 62 H 40 H 33 H Creatinine 2.0 H Glucose 139 H 145 H POC Glucose Hemoglobin A1c Lactic Acid Calcium 7.8 L 8.3 L Phosphorus 1.50 L Magnesium Iron TIBC AST 619 H ALT 353 H Troponin T C-Reactive Protein Total Protein 6.1 L Albumin 2.8 L Triglycerides LDL Cholesterol Direct HDL Cholesterol Urine pH Urine WBC (Auto) Vancomycin Trough Salicylates Acetaminophen % CD3 Cells % CD19 Cells Absolute CD19 Count Miscellaneous Test Crossmatch 08/17/18 08/17/18 08/18/18 11:02 16:42 03:28 WBC RBC Hgb Hct RDW Plt Count Lymph % (Auto) [facility] % (Auto) Lymph # [facility] # Seg Neutrophils % Seg Neuts % (Manual) Lymphocytes % (Manual) Nucleated RBC % Seg Neutrophils # Seg Neutrophils # Man Lymphocytes # (Manual) D-Dimer POC ABG pH 7.483 H 7.499 H POC ABG pCO2 POC ABG pO2 VBG pH Sodium 147 H Potassium 3.2 L Chloride 115.8 H Carbon Dioxide BUN 23 H Creatinine Glucose 121 H POC Glucose Hemoglobin A1c Lactic Acid Calcium 8.1 L Phosphorus 2.30 L D Magnesium Iron TIBC AST ALT Troponin T C-Reactive Protein Total Protein Albumin Triglycerides LDL Cholesterol Direct HDL Cholesterol Urine pH Urine WBC (Auto) Vancomycin Trough Salicylates Acetaminophen % CD3 Cells % CD19 Cells Absolute CD19 Count Miscellaneous Test Crossmatch 08/18/18 08/18/18 08/18/18 04:10 13:39 13:39 WBC RBC Hgb Hct RDW Plt Count Lymph % (Auto) [facility] % (Auto) Lymph # [facility] # Seg Neutrophils % Seg Neuts % (Manual) Lymphocytes % (Manual) Nucleated RBC % Seg Neutrophils # Seg Neutrophils # Man Lymphocytes # (Manual) D-Dimer POC ABG pH POC ABG pCO2 POC ABG pO2 VBG pH Sodium 147 H Potassium 3.3 L Chloride 111.9 H Carbon Dioxide BUN 21 H Creatinine Glucose 113 H POC Glucose Hemoglobin A1c Lactic Acid Calcium Phosphorus 1.50 L D Magnesium Iron TIBC AST ALT Troponin T 0.317 H* D C-Reactive Protein 10.70 H Total Protein Albumin Triglycerides LDL Cholesterol Direct HDL Cholesterol Urine pH Urine WBC (Auto) Vancomycin Trough Salicylates Acetaminophen % CD3 Cells % CD19 Cells Absolute CD19 Count Miscellaneous Test Crossmatch 08/18/18 08/19/18 08/19/18 16:51 03:47 04:15 WBC RBC Hgb Hct RDW Plt Count Lymph % (Auto) [facility] % (Auto) Lymph # [facility] # Seg Neutrophils % Seg Neuts % (Manual) Lymphocytes % (Manual) Nucleated RBC % Seg Neutrophils # Seg Neutrophils # Man Lymphocytes # (Manual) D-Dimer POC ABG pH 7.454 H 7.482 H POC ABG pCO2 POC ABG pO2 65 L VBG pH Sodium 154 H Potassium 3.3 L Chloride 115.1 H Carbon Dioxide BUN 19 H Creatinine Glucose 117 H POC Glucose Hemoglobin A1c Lactic Acid Calcium 7.8 L Phosphorus Magnesium Iron TIBC AST ALT Troponin T C-Reactive Protein Total Protein Albumin Triglycerides LDL Cholesterol Direct HDL Cholesterol Urine pH Urine WBC (Auto) Vancomycin Trough Salicylates Acetaminophen % CD3 Cells % CD19 Cells Absolute CD19 Count Miscellaneous Test Crossmatch 08/19/18 08/19/18 08/20/18 14:32 16:18 03:51 WBC RBC Hgb Hct RDW Plt Count Lymph % (Auto) [facility] % (Auto) Lymph # [facility] # Seg Neutrophils % Seg Neuts % (Manual) Lymphocytes % (Manual) Nucleated RBC % Seg Neutrophils # Seg Neutrophils # Man Lymphocytes # (Manual) D-Dimer POC ABG pH 7.483 H POC ABG pCO2 33.4 L POC ABG pO2 51 L 74 L VBG pH Sodium Potassium Chloride Carbon Dioxide BUN Creatinine Glucose POC Glucose Hemoglobin A1c Lactic Acid Calcium Phosphorus Magnesium Iron TIBC AST ALT Troponin T C-Reactive Protein Total Protein Albumin Triglycerides LDL Cholesterol Direct HDL Cholesterol Urine pH Urine WBC (Auto) Vancomycin Trough Salicylates Acetaminophen % CD3 Cells 44 L % CD19 Cells 41 H Absolute CD19 Count 1290 H Miscellaneous Test Crossmatch 08/20/18 08/21/18 08/21/18 05:25 03:54 05:45 WBC 24.1 H RBC 2.83 L Hgb 8.8 L Hct 26.7 L RDW 15.7 H Plt Count 127 L Lymph % (Auto) [facility] % (Auto) Lymph # [facility] # Seg Neutrophils % Seg Neuts % (Manual) 94.0 H Lymphocytes % (Manual) 4.0 L Nucleated RBC % 1.0 H Seg Neutrophils # Seg Neutrophils # Man 22.7 H Lymphocytes # (Manual) 1.0 L D-Dimer POC ABG pH POC ABG pCO2 31.9 L POC ABG pO2 66 L VBG pH Sodium 146 H D Potassium Chloride 111.2 H Carbon Dioxide BUN 24 H Creatinine Glucose 141 H POC Glucose Hemoglobin A1c Lactic Acid Calcium 8.1 L Phosphorus Magnesium Iron TIBC AST 65 H ALT 104 H Troponin T C-Reactive Protein Total Protein 6.2 L Albumin 2.6 L Triglycerides LDL Cholesterol Direct HDL Cholesterol Urine pH Urine WBC (Auto) Vancomycin Trough Salicylates Acetaminophen % CD3 Cells % CD19 Cells Absolute CD19 Count Miscellaneous Test Crossmatch 08/21/18 08/22/18 08/22/18 05:45 06:20 06:45 WBC RBC Hgb Hct RDW Plt Count Lymph % (Auto) [facility] % (Auto) Lymph # [facility] # Seg Neutrophils % Seg Neuts % (Manual) Lymphocytes % (Manual) Nucleated RBC % Seg Neutrophils # Seg Neutrophils # Man Lymphocytes # (Manual) D-Dimer POC ABG pH POC ABG pCO2 32.9 L POC ABG pO2 VBG pH Sodium Potassium 3.5 L Chloride 109.4 H 112.4 H Carbon Dioxide 21 L 20 L BUN 50 H 61 H Creatinine 2.0 H D 1.9 H Glucose 144 H 154 H POC Glucose Hemoglobin A1c Lactic Acid Calcium 7.6 L 7.8 L Phosphorus Magnesium Iron TIBC AST ALT Troponin T C-Reactive Protein Total Protein 5.3 L Albumin 2.1 L Triglycerides LDL Cholesterol Direct HDL Cholesterol Urine pH Urine WBC (Auto) Vancomycin Trough Salicylates Acetaminophen % CD3 Cells % CD19 Cells Absolute CD19 Count Miscellaneous Test Crossmatch 08/22/18 08/22/18 08/22/18 06:45 15:29 18:40 WBC RBC Hgb Hct RDW Plt Count Lymph % (Auto) [facility] % (Auto) Lymph # [facility] # Seg Neutrophils % Seg Neuts % (Manual) Lymphocytes % (Manual) Nucleated RBC % Seg Neutrophils # Seg Neutrophils # Man Lymphocytes # (Manual) D-Dimer POC ABG pH POC ABG pCO2 POC ABG pO2 VBG pH Sodium Potassium Chloride Carbon Dioxide BUN Creatinine Glucose POC Glucose 169 H Hemoglobin A1c Lactic Acid Calcium Phosphorus Magnesium Iron TIBC AST ALT Troponin T C-Reactive Protein 4.70 H Total Protein Albumin Triglycerides 197 H LDL Cholesterol Direct HDL Cholesterol Urine pH Urine WBC (Auto) Vancomycin Trough Salicylates Acetaminophen % CD3 Cells % CD19 Cells Absolute CD19 Count Miscellaneous Test Crossmatch 08/23/18 08/23/18 08/23/18 03:59 21:19 Unknown WBC 12.1 H RBC 2.29 L Hgb 7.1 L Hct 21.7 L RDW 15.7 H Plt Count 106 L Lymph % (Auto) [facility] % (Auto) Lymph # [facility] # Seg Neutrophils % Seg Neuts % (Manual) 92.0 H Lymphocytes % (Manual) 4.0 L Nucleated RBC % Seg Neutrophils # Seg Neutrophils # Man 11.1 H Lymphocytes # (Manual) 0.5 L D-Dimer POC ABG pH 7.306 L POC ABG pCO2 31.3 L POC ABG pO2 119 H 75 L VBG pH Sodium Potassium Chloride Carbon Dioxide BUN Creatinine Glucose POC Glucose Hemoglobin A1c Lactic Acid Calcium Phosphorus Magnesium Iron TIBC AST ALT Troponin T C-Reactive Protein Total Protein Albumin Triglycerides LDL Cholesterol Direct HDL Cholesterol Urine pH Urine WBC (Auto) Vancomycin Trough Salicylates Acetaminophen % CD3 Cells % CD19 Cells Absolute CD19 Count Miscellaneous Test Crossmatch 08/23/18 08/24/18 08/24/18 Unknown 04:18 08:30 WBC 12.8 H RBC 2.24 L Hgb 7.0 L Hct 21.1 L RDW Plt Count Lymph % (Auto) [facility] % (Auto) Lymph # [facility] # Seg Neutrophils % Seg Neuts % (Manual) 93.0 H Lymphocytes % (Manual) 6.0 L Nucleated RBC % Seg Neutrophils # Seg Neutrophils # Man 11.9 H Lymphocytes # (Manual) 0.8 L D-Dimer POC ABG pH POC ABG pCO2 POC ABG pO2 78 L VBG pH Sodium Potassium Chloride 115.7 H Carbon Dioxide 21 L BUN 64 H Creatinine 2.0 H Glucose 149 H POC Glucose Hemoglobin A1c Lactic Acid Calcium 7.5 L Phosphorus Magnesium Iron TIBC AST ALT Troponin T C-Reactive Protein Total Protein 4.8 L Albumin 2.0 L Triglycerides LDL Cholesterol Direct HDL Cholesterol Urine pH Urine WBC (Auto) Vancomycin Trough Salicylates Acetaminophen % CD3 Cells % CD19 Cells Absolute CD19 Count Miscellaneous Test Crossmatch 08/24/18 08/24/18 08/24/18 08:30 17:44 18:28 WBC RBC Hgb Hct RDW Plt Count Lymph % (Auto) [facility] % (Auto) Lymph # [facility] # Seg Neutrophils % Seg Neuts % (Manual) Lymphocytes % (Manual) Nucleated RBC % Seg Neutrophils # Seg Neutrophils # Man Lymphocytes # (Manual) D-Dimer POC ABG pH 7.474 H POC ABG pCO2 POC ABG pO2 61 L VBG pH Sodium Potassium Chloride 108.3 H Carbon Dioxide 20 L BUN 65 H Creatinine 2.0 H Glucose 167 H POC Glucose 164 H Hemoglobin A1c Lactic Acid Calcium 7.7 L Phosphorus Magnesium Iron TIBC AST ALT Troponin T C-Reactive Protein Total Protein 5.3 L Albumin 2.2 L Triglycerides LDL Cholesterol Direct HDL Cholesterol Urine pH Urine WBC (Auto) Vancomycin Trough Salicylates Acetaminophen % CD3 Cells % CD19 Cells Absolute CD19 Count Miscellaneous Test Crossmatch 08/25/18 08/25/18 08/25/18 03:35 05:20 05:20 WBC RBC Hgb 6.7 L Hct 21.0 L RDW Plt Count Lymph % (Auto) [facility] % (Auto) Lymph # [facility] # Seg Neutrophils % Seg Neuts % (Manual) Lymphocytes % (Manual) Nucleated RBC % Seg Neutrophils # Seg Neutrophils # Man Lymphocytes # (Manual) D-Dimer POC ABG pH POC ABG pCO2 POC ABG pO2 79 L VBG pH Sodium Potassium Chloride Carbon Dioxide 21 L BUN 71 H Creatinine 3.1 H D Glucose 171 H POC Glucose Hemoglobin A1c Lactic Acid Calcium 7.5 L Phosphorus Magnesium Iron TIBC AST ALT Troponin T C-Reactive Protein Total Protein Albumin Triglycerides LDL Cholesterol Direct HDL Cholesterol Urine pH Urine WBC (Auto) Vancomycin Trough Salicylates Acetaminophen % CD3 Cells % CD19 Cells Absolute CD19 Count Miscellaneous Test Crossmatch 03/08/25/18 08/25/18 05:20 08:52 12:42 WBC RBC Hgb Hct RDW Plt Count Lymph % (Auto) [facility] % (Auto) Lymph # [facility] # Seg Neutrophils % Seg Neuts % (Manual) Lymphocytes % (Manual) Nucleated RBC % Seg Neutrophils # Seg Neutrophils # Man Lymphocytes # (Manual) D-Dimer POC ABG pH POC ABG pCO2 POC ABG pO2 VBG pH Sodium Potassium Chloride Carbon Dioxide BUN Creatinine Glucose POC Glucose 166 H Hemoglobin A1c Lactic Acid Calcium Phosphorus Magnesium Iron TIBC AST ALT Troponin T C-Reactive Protein 5.00 H Total Protein Albumin Triglycerides LDL Cholesterol Direct HDL Cholesterol Urine pH Urine WBC (Auto) Vancomycin Trough Salicylates Acetaminophen % CD3 Cells % CD19 Cells Absolute CD19 Count Miscellaneous Test Crossmatch See Detail 08/25/18 08/26/18 08/26/18 18:05 00:13 04:53 WBC RBC Hgb Hct RDW Plt Count Lymph % (Auto) [facility] % (Auto) Lymph # [facility] # Seg Neutrophils % Seg Neuts % (Manual) Lymphocytes % (Manual) Nucleated RBC % Seg Neutrophils # Seg Neutrophils # Man Lymphocytes # (Manual) D-Dimer POC ABG pH POC ABG pCO2 30.9 L POC ABG pO2 70 L VBG pH Sodium Potassium Chloride Carbon Dioxide BUN Creatinine Glucose POC Glucose 121 H 164 H Hemoglobin A1c Lactic Acid Calcium Phosphorus Magnesium Iron TIBC AST ALT Troponin T C-Reactive Protein Total Protein Albumin Triglycerides LDL Cholesterol Direct HDL Cholesterol Urine pH Urine WBC (Auto) Vancomycin Trough Salicylates Acetaminophen % CD3 Cells % CD19 Cells Absolute CD19 Count Miscellaneous Test Crossmatch 08/26/18 08/26/18 08/26/18 05:42 06:00 06:00 WBC RBC 2.62 L Hgb 7.7 L Hct 23.0 L RDW 22.0 H Plt Count Lymph % (Auto) 6.[address] [place] % (Auto) Lymph # 0.[address] [place] # Seg Neutrophils % 88.1 H Seg Neuts % (Manual) Lymphocytes % (Manual) Nucleated RBC % Seg Neutrophils # 9.6 H Seg Neutrophils # Man Lymphocytes # (Manual) D-Dimer POC ABG pH POC ABG pCO2 POC ABG pO2 VBG pH Sodium Potassium Chloride Carbon Dioxide 21 L BUN 70 H Creatinine 3.3 H Glucose 146 H POC Glucose 149 H Hemoglobin A1c Lactic Acid Calcium 8.0 L Phosphorus Magnesium Iron TIBC AST ALT Troponin T C-Reactive Protein Total Protein Albumin Triglycerides LDL Cholesterol Direct HDL Cholesterol Urine pH Urine WBC (Auto) Vancomycin Trough Salicylates Acetaminophen % CD3 Cells % CD19 Cells Absolute CD19 Count Miscellaneous Test Crossmatch 08/26/18 08/26/18 08/27/18 11:37 23:54 04:35 WBC RBC 2.50 L Hgb 7.6 L Hct 22.3 L RDW 21.8 H Plt Count Lymph % (Auto) 7.[address] [place] % (Auto) Lymph # 0.[address] [place] # Seg Neutrophils % 85.6 H Seg Neuts % (Manual) Lymphocytes % (Manual) Nucleated RBC % Seg Neutrophils # 8.6 H Seg Neutrophils # Man Lymphocytes # (Manual) D-Dimer POC ABG pH POC ABG pCO2 POC ABG pO2 VBG pH Sodium Potassium Chloride Carbon Dioxide BUN Creatinine Glucose POC Glucose 183 H 150 H Hemoglobin A1c Lactic Acid Calcium Phosphorus Magnesium Iron TIBC AST ALT Troponin T C-Reactive Protein Total Protein Albumin Triglycerides LDL Cholesterol Direct HDL Cholesterol Urine pH Urine WBC (Auto) Vancomycin Trough Salicylates Acetaminophen % CD3 Cells % CD19 Cells Absolute CD19 Count Miscellaneous Test Crossmatch 08/27/18 08/27/18 08/28/18 04:35 12:17 04:43 WBC RBC Hgb Hct RDW Plt Count Lymph % (Auto) [facility] % (Auto) Lymph # [facility] # Seg Neutrophils % Seg Neuts % (Manual) Lymphocytes % (Manual) Nucleated RBC % Seg Neutrophils # Seg Neutrophils # Man Lymphocytes # (Manual) D-Dimer POC ABG pH POC ABG pCO2 32.1 L 33.8 L POC ABG pO2 68 L 78 L VBG pH Sodium Potassium Chloride Carbon Dioxide 19 L BUN 67 H Creatinine 2.9 H Glucose 155 H POC Glucose Hemoglobin A1c Lactic Acid Calcium Phosphorus 4.70 H Magnesium Iron TIBC AST ALT Troponin T C-Reactive Protein Total Protein Albumin Triglycerides LDL Cholesterol Direct HDL Cholesterol Urine pH Urine WBC (Auto) Vancomycin Trough Salicylates Acetaminophen % CD3 Cells % CD19 Cells Absolute CD19 Count Miscellaneous Test Crossmatch 08/28/18 08/28/18 08/28/18 05:03 05:20 05:20 WBC RBC 2.43 L Hgb 7.4 L Hct 21.8 L RDW 20.8 H Plt Count Lymph % (Auto) 7.[address] [place] % (Auto) 8.7 H Lymph # 0.[address] [place] # Seg Neutrophils % 82.9 H Seg Neuts % (Manual) Lymphocytes % (Manual) Nucleated RBC % Seg Neutrophils # Seg Neutrophils # Man Lymphocytes # (Manual) D-Dimer POC ABG pH POC ABG pCO2 POC ABG pO2 VBG pH Sodium Potassium Chloride 107.8 H Carbon Dioxide 21 L BUN 55 H Creatinine 2.0 H Glucose 177 H POC Glucose 160 H Hemoglobin A1c Lactic Acid Calcium Phosphorus Magnesium Iron TIBC AST ALT Troponin T C-Reactive Protein Total Protein Albumin Triglycerides LDL Cholesterol Direct HDL Cholesterol Urine pH Urine WBC (Auto) Vancomycin Trough Salicylates Acetaminophen % CD3 Cells % CD19 Cells Absolute CD19 Count Miscellaneous Test Crossmatch 08/28/18 08/28/18 08/28/18 12:18 18:58 22:31 WBC RBC Hgb Hct RDW Plt Count Lymph % (Auto) [facility] % (Auto) Lymph # [facility] # Seg Neutrophils % Seg Neuts % (Manual) Lymphocytes % (Manual) Nucleated RBC % Seg Neutrophils # Seg Neutrophils # Man Lymphocytes # (Manual) D-Dimer POC ABG pH POC ABG pCO2 34.4 L POC ABG pO2 67 L VBG pH Sodium Potassium Chloride Carbon Dioxide BUN Creatinine Glucose POC Glucose 164 H 149 H Hemoglobin A1c Lactic Acid Calcium Phosphorus Magnesium Iron TIBC AST ALT Troponin T C-Reactive Protein Total Protein Albumin Triglycerides LDL Cholesterol Direct HDL Cholesterol Urine pH Urine WBC (Auto) Vancomycin Trough Salicylates Acetaminophen % CD3 Cells % CD19 Cells Absolute CD19 Count Miscellaneous Test Crossmatch 08/28/18 08/29/18 08/29/18 23:33 05:25 05:25 WBC RBC 2.30 L Hgb 7.0 L Hct 20.9 L RDW 21.0 H Plt Count Lymph % (Auto) 11.[address] [place] % (Auto) 9.2 H Lymph # 0.[address] [place] # Seg Neutrophils % 78.8 H Seg Neuts % (Manual) Lymphocytes % (Manual) Nucleated RBC % Seg Neutrophils # Seg Neutrophils # Man Lymphocytes # (Manual) D-Dimer POC ABG pH POC ABG pCO2 POC ABG pO2 VBG pH Sodium Potassium Chloride 111.1 H Carbon Dioxide BUN 55 H Creatinine 1.8 H Glucose 162 H POC Glucose 143 H Hemoglobin A1c Lactic Acid Calcium Phosphorus Magnesium Iron TIBC AST 46 H ALT < 5 L Troponin T C-Reactive Protein Total Protein 5.7 L Albumin 2.1 L Triglycerides LDL Cholesterol Direct HDL Cholesterol Urine pH Urine WBC (Auto) Vancomycin Trough Salicylates Acetaminophen % CD3 Cells % CD19 Cells Absolute CD19 Count Miscellaneous Test Crossmatch 08/29/18 08/29/18 08/30/18 18:19 23:35 05:03 WBC RBC Hgb Hct RDW Plt Count Lymph % (Auto) [facility] % (Auto) Lymph # [facility] # Seg Neutrophils % Seg Neuts % (Manual) Lymphocytes % (Manual) Nucleated RBC % Seg Neutrophils # Seg Neutrophils # Man Lymphocytes # (Manual) D-Dimer POC ABG pH POC ABG pCO2 POC ABG pO2 VBG pH Sodium Potassium Chloride Carbon Dioxide BUN Creatinine Glucose POC Glucose 155 H 139 H 122 H Hemoglobin A1c Lactic Acid Calcium Phosphorus Magnesium Iron TIBC AST ALT Troponin T C-Reactive Protein Total Protein Albumin Triglycerides LDL Cholesterol Direct HDL Cholesterol Urine pH Urine WBC (Auto) Vancomycin Trough Salicylates Acetaminophen % CD3 Cells % CD19 Cells Absolute CD19 Count Miscellaneous Test Crossmatch 08/30/18 08/30/18 08/30/18 09:33 09:33 09:54 WBC RBC 2.58 L Hgb 7.9 L Hct 23.5 L RDW 20.9 H Plt Count Lymph % (Auto) 8.[address] [place] % (Auto) 9.7 H Lymph # 0.[address] [place] # 1.0 H Seg Neutrophils % 82.1 H Seg Neuts % (Manual) Lymphocytes % (Manual) Nucleated RBC % Seg Neutrophils # 8.2 H Seg Neutrophils # Man Lymphocytes # (Manual) D-Dimer POC ABG pH POC ABG pCO2 POC ABG pO2 VBG pH Sodium 146 H Potassium Chloride 110.7 H Carbon Dioxide BUN 56 H Creatinine 1.9 H Glucose 145 H POC Glucose Hemoglobin A1c Lactic Acid Calcium Phosphorus 4.60 H Magnesium Iron TIBC AST ALT < 5 L Troponin T C-Reactive Protein Total Protein Albumin 2.7 L Triglycerides LDL Cholesterol Direct HDL Cholesterol Urine pH Urine WBC (Auto) Vancomycin Trough Salicylates Acetaminophen % CD3 Cells % CD19 Cells Absolute CD19 Count Miscellaneous Test Flexitest 1 H Crossmatch 08/30/18 08/30/18 08/30/18 09:57 11:26 18:08 WBC RBC Hgb Hct RDW Plt Count Lymph % (Auto) [facility] % (Auto) Lymph # [facility] # Seg Neutrophils % Seg Neuts % (Manual) Lymphocytes % (Manual) Nucleated RBC % Seg Neutrophils # Seg Neutrophils # Man Lymphocytes # (Manual) D-Dimer POC ABG pH POC ABG pCO2 POC ABG pO2 VBG pH Sodium Potassium Chloride Carbon Dioxide BUN Creatinine Glucose POC Glucose 149 H 156 H Hemoglobin A1c Lactic Acid Calcium Phosphorus Magnesium Iron TIBC AST ALT Troponin T C-Reactive Protein Total Protein Albumin Triglycerides LDL Cholesterol Direct HDL Cholesterol Urine pH Urine WBC (Auto) Vancomycin Trough Salicylates Acetaminophen % CD3 Cells % CD19 Cells Absolute CD19 Count Miscellaneous Test Flexitest 1 H Crossmatch 08/30/18 08/31/18 08/31/18 23:14 05:16 08:40 WBC RBC Hgb Hct RDW Plt Count Lymph % (Auto) [place] % (Auto) Lymph # [place] # Seg Neutrophils % Seg Neuts % (Manual) Lymphocytes % (Manual) Nucleated RBC % Seg Neutrophils # Seg Neutrophils # Man Lymphocytes # (Manual) D-Dimer POC ABG pH POC ABG pCO2 POC ABG pO2 VBG pH Sodium 151 H Potassium Chloride 113.8 H Carbon Dioxide BUN 45 H Creatinine Glucose 144 H POC Glucose 117 H 133 H Hemoglobin A1c Lactic Acid Calcium Phosphorus Magnesium Iron TIBC AST ALT Troponin T C-Reactive Protein Total Protein Albumin Triglycerides LDL Cholesterol Direct HDL Cholesterol Urine pH Urine WBC (Auto) Vancomycin Trough Salicylates Acetaminophen % CD3 Cells % CD19 Cells Absolute CD19 Count Miscellaneous Test Crossmatch 08/31/18 09/01/18 09/01/18 23:46 04:45 04:45 WBC RBC 2.38 L Hgb 7.3 L Hct 22.1 L RDW 21.1 H Plt Count Lymph % (Auto) [place] % (Auto) Lymph # [place] # Seg Neutrophils % Seg Neuts % (Manual) 93.0 H Lymphocytes % (Manual) 4.0 L Nucleated RBC % Seg Neutrophils # Seg Neutrophils # Man 10.1 H Lymphocytes # (Manual) 0.4 L D-Dimer POC ABG pH POC ABG pCO2 POC ABG pO2 VBG pH Sodium 156 H Potassium 3.1 L Chloride 115.2 H Carbon Dioxide BUN 34 H Creatinine Glucose 125 H POC Glucose 124 H Hemoglobin A1c Lactic Acid Calcium Phosphorus Magnesium Iron TIBC AST ALT Troponin T C-Reactive Protein Total Protein Albumin Triglycerides LDL Cholesterol Direct HDL Cholesterol Urine pH Urine WBC (Auto) Vancomycin Trough Salicylates Acetaminophen % CD3 Cells % CD19 Cells Absolute CD19 Count Miscellaneous Test Crossmatch 09/01/18 09/01/18 09/01/18 05:34 11:20 17:52 WBC RBC Hgb Hct RDW Plt Count Lymph % (Auto) [place] % (Auto) Lymph # [place] # Seg Neutrophils % Seg Neuts % (Manual) Lymphocytes % (Manual) Nucleated RBC % Seg Neutrophils # Seg Neutrophils # Man Lymphocytes # (Manual) D-Dimer POC ABG pH 7.553 H POC ABG pCO2 POC ABG pO2 74 L VBG pH Sodium Potassium Chloride Carbon Dioxide BUN Creatinine Glucose POC Glucose 128 H 146 H Hemoglobin A1c Lactic Acid Calcium Phosphorus Magnesium Iron TIBC AST ALT Troponin T C-Reactive Protein Total Protein Albumin Triglycerides LDL Cholesterol Direct HDL Cholesterol Urine pH Urine WBC (Auto) Vancomycin Trough Salicylates Acetaminophen % CD3 Cells % CD19 Cells Absolute CD19 Count Miscellaneous Test Crossmatch 09/01/18 09/02/18 09/02/18 17:52 04:13 04:58 WBC 16.4 H RBC 2.64 L Hgb 7.9 L Hct 24.3 L RDW 20.8 H Plt Count Lymph % (Auto) [place] % (Auto) Lymph # [place] # Seg Neutrophils % Seg Neuts % (Manual) 96.0 H Lymphocytes % (Manual) 1.0 L Nucleated RBC % Seg Neutrophils # Seg Neutrophils # Man 15.7 H Lymphocytes # (Manual) 0.2 L D-Dimer POC ABG pH 7.488 H POC ABG pCO2 POC ABG pO2 63 L VBG pH Sodium Potassium Chloride Carbon Dioxide BUN Creatinine Glucose POC Glucose 143 H Hemoglobin A1c Lactic Acid Calcium Phosphorus Magnesium Iron TIBC AST ALT Troponin T C-Reactive Protein Total Protein Albumin Triglycerides LDL Cholesterol Direct HDL Cholesterol Urine pH Urine WBC (Auto) Vancomycin Trough Salicylates Acetaminophen % CD3 Cells % CD19 Cells Absolute CD19 Count Miscellaneous Test Crossmatch 09/02/18 09/02/18 09/02/18 04:58 11:03 18:18 WBC RBC Hgb Hct RDW Plt Count Lymph % (Auto) [place] % (Auto) Lymph # [place] # Seg Neutrophils % Seg Neuts % (Manual) Lymphocytes % (Manual) Nucleated RBC % Seg Neutrophils # Seg Neutrophils # Man Lymphocytes # (Manual) D-Dimer POC ABG pH 7.344 L POC ABG pCO2 52.8 H POC ABG pO2 VBG pH Sodium 158 H Potassium 2.9 L* Chloride 115.7 H Carbon Dioxide BUN 27 H Creatinine 0.6 L Glucose 128 H POC Glucose 121 H Hemoglobin A1c Lactic Acid Calcium Phosphorus Magnesium 1.60 L Iron TIBC AST 64 H ALT Troponin T C-Reactive Protein Total Protein Albumin 2.6 L Triglycerides LDL Cholesterol Direct HDL Cholesterol Urine pH Urine WBC (Auto) Vancomycin Trough Salicylates Acetaminophen % CD3 Cells % CD19 Cells Absolute CD19 Count Miscellaneous Test Crossmatch 09/02/18 09/03/18 09/03/18 23:06 03:36 04:25 WBC RBC 2.20 L Hgb 6.7 L Hct 20.9 L RDW 21.1 H Plt Count Lymph % (Auto) [facility] % (Auto) Lymph # [place] # Seg Neutrophils % Seg Neuts % (Manual) 90.0 H Lymphocytes % (Manual) 5.0 L Nucleated RBC % Seg Neutrophils # Seg Neutrophils # Man 8.7 H Lymphocytes # (Manual) 0.5 L D-Dimer POC ABG pH POC ABG pCO2 POC ABG pO2 54 L VBG pH Sodium Potassium Chloride Carbon Dioxide BUN Creatinine Glucose POC Glucose 121 H Hemoglobin A1c Lactic Acid Calcium Phosphorus Magnesium Iron TIBC AST ALT Troponin T C-Reactive Protein Total Protein Albumin Triglycerides LDL Cholesterol Direct HDL Cholesterol Urine pH Urine WBC (Auto) Vancomycin Trough Salicylates Acetaminophen % CD3 Cells % CD19 Cells Absolute CD19 Count Miscellaneous Test Crossmatch 09/03/18 09/03/18 09/03/18 04:25 05:45 10:24 WBC RBC Hgb Hct RDW Plt Count Lymph % (Auto) [facility] % (Auto) Lymph # [place] # Seg Neutrophils % Seg Neuts % (Manual) Lymphocytes % (Manual) Nucleated RBC % Seg Neutrophils # Seg Neutrophils # Man Lymphocytes # (Manual) D-Dimer POC ABG pH POC ABG pCO2 POC ABG pO2 VBG pH Sodium 158 H Potassium 3.1 L Chloride 120.4 H Carbon Dioxide BUN 25 H Creatinine 0.6 L Glucose 127 H POC Glucose 178 H Hemoglobin A1c Lactic Acid Calcium 7.9 L Phosphorus Magnesium Iron TIBC AST ALT Troponin T C-Reactive Protein Total Protein 6.0 L Albumin 2.4 L Triglycerides LDL Cholesterol Direct HDL Cholesterol Urine pH Urine WBC (Auto) Vancomycin Trough Salicylates Acetaminophen % CD3 Cells % CD19 Cells Absolute CD19 Count Miscellaneous Test Crossmatch See Detail 09/03/18 09/03/18 09/04/18 11:27 23:09 04:42 WBC RBC Hgb Hct RDW Plt Count Lymph % (Auto) [facility] % (Auto) Lymph # [facility] # Seg Neutrophils % Seg Neuts % (Manual) Lymphocytes % (Manual) Nucleated RBC % Seg Neutrophils # Seg Neutrophils # Man Lymphocytes # (Manual) D-Dimer POC ABG pH 7.293 L POC ABG pCO2 50.2 H POC ABG pO2 VBG pH Sodium Potassium Chloride Carbon Dioxide BUN Creatinine Glucose POC Glucose 107 H 139 H Hemoglobin A1c Lactic Acid Calcium Phosphorus Magnesium Iron TIBC AST ALT Troponin T C-Reactive Protein Total Protein Albumin Triglycerides LDL Cholesterol Direct HDL Cholesterol Urine pH Urine WBC (Auto) Vancomycin Trough Salicylates Acetaminophen % CD3 Cells % CD19 Cells Absolute CD19 Count Miscellaneous Test Crossmatch 09/04/18 09/04/18 09/04/18 05:00 06:30 06:30 WBC RBC 2.32 L Hgb 7.0 L Hct 21.9 L RDW 20.2 H Plt Count Lymph % (Auto) [facility] % (Auto) Lymph # [facility] # Seg Neutrophils % 80.1 H Seg Neuts % (Manual) Lymphocytes % (Manual) Nucleated RBC % Seg Neutrophils # 8.2 H Seg Neutrophils # Man Lymphocytes # (Manual) D-Dimer POC ABG pH POC ABG pCO2 POC ABG pO2 VBG pH Sodium 150 H D Potassium Chloride 115.9 H Carbon Dioxide BUN 21 H Creatinine 0.6 L Glucose 125 H POC Glucose 154 H Hemoglobin A1c Lactic Acid Calcium 7.9 L Phosphorus Magnesium 1.50 L Iron TIBC AST ALT Troponin T C-Reactive Protein Total Protein Albumin Triglycerides LDL Cholesterol Direct HDL Cholesterol Urine pH Urine WBC (Auto) Vancomycin Trough Salicylates Acetaminophen % CD3 Cells % CD19 Cells Absolute CD19 Count Miscellaneous Test Crossmatch 09/04/18 09/04/18 09/04/18 11:20 11:51 18:27 WBC RBC Hgb Hct RDW Plt Count Lymph % (Auto) [facility] % (Auto) Lymph # [facility] # Seg Neutrophils % Seg Neuts % (Manual) Lymphocytes % (Manual) Nucleated RBC % Seg Neutrophils # Seg Neutrophils # Man Lymphocytes # (Manual) D-Dimer POC ABG pH 7.244 L POC ABG pCO2 54.2 H POC ABG pO2 62 L VBG pH Sodium Potassium Chloride Carbon Dioxide BUN Creatinine Glucose POC Glucose 156 H 129 H Hemoglobin A1c Lactic Acid Calcium Phosphorus Magnesium Iron TIBC AST ALT Troponin T C-Reactive Protein Total Protein Albumin Triglycerides LDL Cholesterol Direct HDL Cholesterol Urine pH Urine WBC (Auto) Vancomycin Trough Salicylates Acetaminophen % CD3 Cells % CD19 Cells Absolute CD19 Count Miscellaneous Test Crossmatch 09/05/18 09/05/18 09/05/18 03:46 04:00 04:00 WBC RBC 2.13 L Hgb 6.4 L Hct 20.1 L RDW 19.9 H Plt Count 117 L Lymph % (Auto) [facility] % (Auto) Lymph # 0.[address] [place] # Seg Neutrophils % 81.7 H Seg Neuts % (Manual) Lymphocytes % (Manual) Nucleated RBC % Seg Neutrophils # Seg Neutrophils # Man Lymphocytes # (Manual) D-Dimer POC ABG pH 7.282 L POC ABG pCO2 57.3 H POC ABG pO2 124 H VBG pH Sodium Potassium Chloride 111.0 H Carbon Dioxide BUN 20 H Creatinine Glucose 130 H POC Glucose Hemoglobin A1c Lactic Acid Calcium 7.8 L Phosphorus Magnesium 1.60 L Iron TIBC AST ALT Troponin T C-Reactive Protein Total Protein Albumin Triglycerides LDL Cholesterol Direct HDL Cholesterol Urine pH Urine WBC (Auto) Vancomycin Trough Salicylates Acetaminophen % CD3 Cells % CD19 Cells Absolute CD19 Count Miscellaneous Test Crossmatch 09/05/18 09/05/18 09/05/18 12:15 17:24 23:24 WBC RBC Hgb Hct RDW Plt Count Lymph % (Auto) [facility] % (Auto) Lymph # [facility] # Seg Neutrophils % Seg Neuts % (Manual) Lymphocytes % (Manual) Nucleated RBC % Seg Neutrophils # Seg Neutrophils # Man Lymphocytes # (Manual) D-Dimer POC ABG pH POC ABG pCO2 POC ABG pO2 VBG pH Sodium Potassium Chloride Carbon Dioxide BUN Creatinine Glucose POC Glucose 143 H 116 H 116 H Hemoglobin A1c Lactic Acid Calcium Phosphorus Magnesium Iron TIBC AST ALT Troponin T C-Reactive Protein Total Protein Albumin Triglycerides LDL Cholesterol Direct HDL Cholesterol Urine pH Urine WBC (Auto) Vancomycin Trough Salicylates Acetaminophen % CD3 Cells % CD19 Cells Absolute CD19 Count Miscellaneous Test Crossmatch 09/06/18 09/06/18 09/06/18 03:33 04:20 04:20 WBC RBC 2.45 L Hgb 7.4 L Hct 23.0 L RDW 18.1 H Plt Count 99 L Lymph % (Auto) [facility] % (Auto) Lymph # 1.[address] [place] # Seg Neutrophils % 78.0 H Seg Neuts % (Manual) Lymphocytes % (Manual) Nucleated RBC % Seg Neutrophils # Seg Neutrophils # Man Lymphocytes # (Manual) D-Dimer POC ABG pH 7.303 L POC ABG pCO2 49.2 H POC ABG pO2 73 L VBG pH Sodium Potassium Chloride 109.3 H Carbon Dioxide BUN 24 H Creatinine Glucose 108 H POC Glucose Hemoglobin A1c Lactic Acid Calcium 8.1 L Phosphorus Magnesium Iron TIBC AST ALT Troponin T C-Reactive Protein Total Protein Albumin Triglycerides LDL Cholesterol Direct HDL Cholesterol Urine pH Urine WBC (Auto) Vancomycin Trough Salicylates Acetaminophen % CD3 Cells % CD19 Cells Absolute CD19 Count Miscellaneous Test Crossmatch 09/06/18 09/06/18 09/06/18 04:55 11:29 14:40 WBC RBC Hgb Hct RDW Plt Count Lymph % (Auto) [facility] % (Auto) Lymph # [facility] # Seg Neutrophils % Seg Neuts % (Manual) Lymphocytes % (Manual) Nucleated RBC % Seg Neutrophils # Seg Neutrophils # Man Lymphocytes # (Manual) D-Dimer POC ABG pH POC ABG pCO2 POC ABG pO2 VBG pH Sodium Potassium Chloride Carbon Dioxide BUN Creatinine Glucose POC Glucose 124 H 149 H Hemoglobin A1c Lactic Acid Calcium Phosphorus Magnesium Iron TIBC AST ALT Troponin T C-Reactive Protein Total Protein Albumin Triglycerides LDL Cholesterol Direct HDL Cholesterol Urine pH Urine WBC (Auto) Vancomycin Trough 28.6 H Salicylates Acetaminophen % CD3 Cells % CD19 Cells Absolute CD19 Count Miscellaneous Test Crossmatch 09/06/18 09/06/18 09/07/18 17:43 20:08 00:39 WBC RBC Hgb Hct RDW Plt Count Lymph % (Auto) [facility] % (Auto) Lymph # [facility] # Seg Neutrophils % Seg Neuts % (Manual) Lymphocytes % (Manual) Nucleated RBC % Seg Neutrophils # Seg Neutrophils # Man Lymphocytes # (Manual) D-Dimer POC ABG pH POC ABG pCO2 POC ABG pO2 VBG pH Sodium Potassium Chloride Carbon Dioxide BUN Creatinine Glucose POC Glucose 138 H 118 H 131 H Hemoglobin A1c Lactic Acid Calcium Phosphorus Magnesium Iron TIBC AST ALT Troponin T C-Reactive Protein Total Protein Albumin Triglycerides LDL Cholesterol Direct HDL Cholesterol Urine pH Urine WBC (Auto) Vancomycin Trough Salicylates Acetaminophen % CD3 Cells % CD19 Cells Absolute CD19 Count Miscellaneous Test Crossmatch 09/07/18 09/07/18 09/07/18 05:40 05:40 12:03 WBC RBC 2.40 L Hgb 7.3 L Hct 22.5 L RDW 17.8 H Plt Count 92 L Lymph % (Auto) [facility] % (Auto) Lymph # [facility] # Seg Neutrophils % Seg Neuts % (Manual) 80.0 H Lymphocytes % (Manual) Nucleated RBC % 1.0 H Seg Neutrophils # Seg Neutrophils # Man Lymphocytes # (Manual) 0.8 L D-Dimer POC ABG pH POC ABG pCO2 POC ABG pO2 VBG pH Sodium Potassium Chloride 109.8 H Carbon Dioxide BUN 26 H Creatinine Glucose 118 H POC Glucose 145 H Hemoglobin A1c Lactic Acid Calcium 8.0 L Phosphorus Magnesium Iron 26 L TIBC 150 L AST 88 H ALT Troponin T C-Reactive Protein Total Protein 5.8 L Albumin 2.1 L Triglycerides LDL Cholesterol Direct HDL Cholesterol Urine pH Urine WBC (Auto) Vancomycin Trough Salicylates Acetaminophen % CD3 Cells % CD19 Cells Absolute CD19 Count Miscellaneous Test Crossmatch 09/07/18 09/07/18 09/08/18 17:39 23:21 05:48 WBC RBC Hgb Hct RDW Plt Count Lymph % (Auto) [facility] % (Auto) Lymph # [facility] # Seg Neutrophils % Seg Neuts % (Manual) Lymphocytes % (Manual) Nucleated RBC % Seg Neutrophils # Seg Neutrophils # Man Lymphocytes # (Manual) D-Dimer POC ABG pH POC ABG pCO2 POC ABG pO2 VBG pH Sodium Potassium Chloride Carbon Dioxide BUN Creatinine Glucose POC Glucose 128 H 136 H 129 H Hemoglobin A1c Lactic Acid Calcium Phosphorus Magnesium Iron TIBC AST ALT Troponin T C-Reactive Protein Total Protein Albumin Triglycerides LDL Cholesterol Direct HDL Cholesterol Urine pH Urine WBC (Auto) Vancomycin Trough Salicylates Acetaminophen % CD3 Cells % CD19 Cells Absolute CD19 Count Miscellaneous Test Crossmatch 09/08/18 09/08/18 09/08/18 06:17 10:06 10:42 WBC RBC Hgb Hct RDW Plt Count Lymph % (Auto) [facility] % (Auto) Lymph # [facility] # Seg Neutrophils % Seg Neuts % (Manual) Lymphocytes % (Manual) Nucleated RBC % Seg Neutrophils # Seg Neutrophils # Man Lymphocytes # (Manual) D-Dimer POC ABG pH 7.292 L 7.276 L POC ABG pCO2 56.9 H 65.1 H POC ABG pO2 VBG pH Sodium 146 H Potassium Chloride 109.1 H Carbon Dioxide BUN 28 H Creatinine Glucose 165 H POC Glucose Hemoglobin A1c Lactic Acid Calcium Phosphorus Magnesium Iron TIBC AST ALT Troponin T C-Reactive Protein Total Protein Albumin Triglycerides LDL Cholesterol Direct HDL Cholesterol Urine pH Urine WBC (Auto) Vancomycin Trough Salicylates Acetaminophen % CD3 Cells % CD19 Cells Absolute CD19 Count Miscellaneous Test Crossmatch 09/08/18 09/08/18 09/08/18 11:06 18:07 23:20 WBC RBC Hgb Hct RDW Plt Count Lymph % (Auto) [facility] % (Auto) Lymph # [facility] # Seg Neutrophils % Seg Neuts % (Manual) Lymphocytes % (Manual) Nucleated RBC % Seg Neutrophils # Seg Neutrophils # Man Lymphocytes # (Manual) D-Dimer POC ABG pH POC ABG pCO2 POC ABG pO2 VBG pH Sodium Potassium Chloride Carbon Dioxide BUN Creatinine Glucose POC Glucose 165 H 140 H 124 H Hemoglobin A1c Lactic Acid Calcium Phosphorus Magnesium Iron TIBC AST ALT Troponin T C-Reactive Protein Total Protein Albumin Triglycerides LDL Cholesterol Direct HDL Cholesterol Urine pH Urine WBC (Auto) Vancomycin Trough Salicylates Acetaminophen % CD3 Cells % CD19 Cells Absolute CD19 Count Miscellaneous Test Crossmatch 09/09/18 09/09/18 09/09/18 05:04 08:39 08:39 WBC RBC 2.60 L Hgb 8.1 L Hct 24.6 L RDW 17.9 H Plt Count Lymph % (Auto) [facility] % (Auto) Lymph # [facility] # Seg Neutrophils % Seg Neuts % (Manual) Lymphocytes % (Manual) Nucleated RBC % Seg Neutrophils # Seg Neutrophils # Man Lymphocytes # (Manual) D-Dimer POC ABG pH POC ABG pCO2 POC ABG pO2 VBG pH Sodium Potassium Chloride Carbon Dioxide BUN 32 H Creatinine Glucose 150 H POC Glucose 168 H Hemoglobin A1c Lactic Acid Calcium Phosphorus Magnesium Iron TIBC AST ALT Troponin T C-Reactive Protein Total Protein Albumin Triglycerides LDL Cholesterol Direct HDL Cholesterol Urine pH Urine WBC (Auto) Vancomycin Trough Salicylates Acetaminophen % CD3 Cells % CD19 Cells Absolute CD19 Count Miscellaneous Test Crossmatch 09/09/18 09/10/18 09/10/18 12:41 04:20 04:20 WBC RBC 2.49 L Hgb 7.7 L Hct 23.4 L RDW 18.0 H Plt Count Lymph % (Auto) 8.[address] [place] % (Auto) Lymph # 0.[address] [place] # Seg Neutrophils % 87.7 H Seg Neuts % (Manual) Lymphocytes % (Manual) Nucleated RBC % Seg Neutrophils # Seg Neutrophils # Man Lymphocytes # (Manual) D-Dimer POC ABG pH POC ABG pCO2 POC ABG pO2 VBG pH Sodium Potassium Chloride Carbon Dioxide 31 H BUN 39 H Creatinine Glucose 183 H POC Glucose 150 H Hemoglobin A1c Lactic Acid Calcium Phosphorus Magnesium Iron TIBC AST 85 H ALT 58 H Troponin T C-Reactive Protein Total Protein Albumin 2.5 L Triglycerides LDL Cholesterol Direct HDL Cholesterol Urine pH Urine WBC (Auto) Vancomycin Trough Salicylates Acetaminophen % CD3 Cells % CD19 Cells Absolute CD19 Count Miscellaneous Test Crossmatch 09/10/18 09/10/18 09/10/18 04:39 05:06 11:17 WBC RBC Hgb Hct RDW Plt Count Lymph % (Auto) [facility] % (Auto) Lymph # [facility] # Seg Neutrophils % Seg Neuts % (Manual) Lymphocytes % (Manual) Nucleated RBC % Seg Neutrophils # Seg Neutrophils # Man Lymphocytes # (Manual) D-Dimer POC ABG pH POC ABG pCO2 51.4 H POC ABG pO2 VBG pH Sodium Potassium Chloride Carbon Dioxide BUN Creatinine Glucose POC Glucose 185 H 159 H Hemoglobin A1c Lactic Acid Calcium Phosphorus Magnesium Iron TIBC AST ALT Troponin T C-Reactive Protein Total Protein Albumin Triglycerides LDL Cholesterol Direct HDL Cholesterol Urine pH Urine WBC (Auto) Vancomycin Trough Salicylates Acetaminophen % CD3 Cells % CD19 Cells Absolute CD19 Count Miscellaneous Test Crossmatch 09/10/18 09/11/18 09/11/18 16:57 00:17 01:10 WBC RBC Hgb Hct RDW Plt Count Lymph % (Auto) [facility] % (Auto) Lymph # [facility] # Seg Neutrophils % Seg Neuts % (Manual) Lymphocytes % (Manual) Nucleated RBC % Seg Neutrophils # Seg Neutrophils # Man Lymphocytes # (Manual) D-Dimer POC ABG pH POC ABG pCO2 POC ABG pO2 VBG pH Sodium Potassium Chloride Carbon Dioxide 34 H BUN 44 H Creatinine Glucose 154 H POC Glucose 177 H 163 H Hemoglobin A1c Lactic Acid Calcium Phosphorus Magnesium Iron TIBC AST 86 H ALT 68 H Troponin T C-Reactive Protein Total Protein Albumin 2.6 L Triglycerides LDL Cholesterol Direct HDL Cholesterol Urine pH Urine WBC (Auto) Vancomycin Trough Salicylates Acetaminophen % CD3 Cells % CD19 Cells Absolute CD19 Count Miscellaneous Test Crossmatch 09/11/18 09/11/18 09/11/18 01:10 06:03 09:00 WBC 13.7 H RBC 2.61 L Hgb 8.0 L Hct 24.6 L RDW 19.1 H Plt Count Lymph % (Auto) 6.[address] [place] % (Auto) Lymph # 0.[address] [place] # Seg Neutrophils % 87.7 H Seg Neuts % (Manual) Lymphocytes % (Manual) Nucleated RBC % Seg Neutrophils # 12.0 H Seg Neutrophils # Man Lymphocytes # (Manual) D-Dimer POC ABG pH POC ABG pCO2 POC ABG pO2 VBG pH Sodium Potassium Chloride Carbon Dioxide 33 H BUN 45 H Creatinine Glucose 147 H POC Glucose 180 H Hemoglobin A1c Lactic Acid Calcium Phosphorus Magnesium Iron TIBC AST ALT Troponin T C-Reactive Protein Total Protein Albumin Triglycerides LDL Cholesterol Direct HDL Cholesterol Urine pH Urine WBC (Auto) Vancomycin Trough Salicylates Acetaminophen % CD3 Cells % CD19 Cells Absolute CD19 Count Miscellaneous Test Crossmatch 09/11/18 09/11/18 09/11/18 11:14 11:31 17:11 WBC RBC Hgb Hct RDW Plt Count Lymph % (Auto) [facility] % (Auto) Lymph # [facility] # Seg Neutrophils % Seg Neuts % (Manual) Lymphocytes % (Manual) Nucleated RBC % Seg Neutrophils # Seg Neutrophils # Man Lymphocytes # (Manual) D-Dimer POC ABG pH 7.498 H POC ABG pCO2 46.3 H POC ABG pO2 VBG pH Sodium Potassium Chloride Carbon Dioxide BUN Creatinine Glucose POC Glucose 163 H 202 H Hemoglobin A1c Lactic Acid Calcium Phosphorus Magnesium Iron TIBC AST ALT Troponin T C-Reactive Protein Total Protein Albumin Triglycerides LDL Cholesterol Direct HDL Cholesterol Urine pH Urine WBC (Auto) Vancomycin Trough Salicylates Acetaminophen % CD3 Cells % CD19 Cells Absolute CD19 Count Miscellaneous Test Crossmatch 09/11/18 09/12/18 09/12/18 23:49 03:16 05:30 WBC RBC 2.36 L Hgb 7.3 L Hct 22.3 L RDW 18.4 H Plt Count Lymph % (Auto) 13.[address] [place] % (Auto) 9.3 H Lymph # 1.[address] [place] # Seg Neutrophils % 77.5 H Seg Neuts % (Manual) Lymphocytes % (Manual) Nucleated RBC % Seg Neutrophils # Seg Neutrophils # Man Lymphocytes # (Manual) D-Dimer POC ABG pH 7.517 H POC ABG pCO2 48.8 H POC ABG pO2 VBG pH Sodium Potassium Chloride Carbon Dioxide BUN Creatinine Glucose POC Glucose 163 H Hemoglobin A1c Lactic Acid Calcium Phosphorus Magnesium Iron TIBC AST ALT Troponin T C-Reactive Protein Total Protein Albumin Triglycerides LDL Cholesterol Direct HDL Cholesterol Urine pH Urine WBC (Auto) Vancomycin Trough Salicylates Acetaminophen % CD3 Cells % CD19 Cells Absolute CD19 Count Miscellaneous Test Crossmatch 09/12/18 09/12/18 09/12/18 05:30 06:07 11:36 WBC RBC Hgb Hct RDW Plt Count Lymph % (Auto) [facility] % (Auto) Lymph # [facility] # Seg Neutrophils % Seg Neuts % (Manual) Lymphocytes % (Manual) Nucleated RBC % Seg Neutrophils # Seg Neutrophils # Man Lymphocytes # (Manual) D-Dimer POC ABG pH POC ABG pCO2 POC ABG pO2 VBG pH Sodium 148 H Potassium Chloride Carbon Dioxide 36 H BUN 46 H Creatinine Glucose 152 H POC Glucose 172 H 212 H Hemoglobin A1c Lactic Acid Calcium Phosphorus Magnesium Iron TIBC AST ALT Troponin T C-Reactive Protein Total Protein Albumin Triglycerides LDL Cholesterol Direct HDL Cholesterol Urine pH Urine WBC (Auto) Vancomycin Trough Salicylates Acetaminophen % CD3 Cells % CD19 Cells Absolute CD19 Count Miscellaneous Test Crossmatch 09/12/18 09/12/18 09/13/18 18:02 23:19 03:55 WBC RBC Hgb Hct RDW Plt Count Lymph % (Auto) [facility] % (Auto) Lymph # [facility] # Seg Neutrophils % Seg Neuts % (Manual) Lymphocytes % (Manual) Nucleated RBC % Seg Neutrophils # Seg Neutrophils # Man Lymphocytes # (Manual) D-Dimer POC ABG pH 7.520 H POC ABG pCO2 48.0 H POC ABG pO2 58 L VBG pH Sodium Potassium Chloride Carbon Dioxide BUN Creatinine Glucose POC Glucose 142 H 161 H Hemoglobin A1c Lactic Acid Calcium Phosphorus Magnesium Iron TIBC AST ALT Troponin T C-Reactive Protein Total Protein Albumin Triglycerides LDL Cholesterol Direct HDL Cholesterol Urine pH Urine WBC (Auto) Vancomycin Trough Salicylates Acetaminophen % CD3 Cells % CD19 Cells Absolute CD19 Count Miscellaneous Test Crossmatch 09/13/18 09/13/18 09/13/18 05:11 05:25 05:25 WBC RBC 2.38 L Hgb 7.6 L Hct 22.4 L RDW 18.6 H Plt Count Lymph % (Auto) [facility] % (Auto) Lymph # [facility] # Seg Neutrophils % Seg Neuts % (Manual) Lymphocytes % (Manual) Nucleated RBC % Seg Neutrophils # Seg Neutrophils # Man Lymphocytes # (Manual) D-Dimer POC ABG pH POC ABG pCO2 POC ABG pO2 VBG pH Sodium Potassium 3.2 L Chloride 97.5 L Carbon Dioxide 38 H BUN 38 H Creatinine 0.6 L Glucose 120 H POC Glucose 139 H Hemoglobin A1c Lactic Acid Calcium 8.1 L Phosphorus Magnesium Iron TIBC AST 120 H ALT 124 H Troponin T C-Reactive Protein Total Protein 5.9 L Albumin 2.6 L Triglycerides LDL Cholesterol Direct HDL Cholesterol Urine pH Urine WBC (Auto) Vancomycin Trough Salicylates Acetaminophen % CD3 Cells % CD19 Cells Absolute CD19 Count Miscellaneous Test Crossmatch 09/13/18 09/13/18 09/13/18 11:31 17:46 23:23 WBC RBC Hgb Hct RDW Plt Count Lymph % (Auto) [facility] % (Auto) Lymph # [facility] # Seg Neutrophils % Seg Neuts % (Manual) Lymphocytes % (Manual) Nucleated RBC % Seg Neutrophils # Seg Neutrophils # Man Lymphocytes # (Manual) D-Dimer POC ABG pH POC ABG pCO2 POC ABG pO2 VBG pH Sodium Potassium Chloride Carbon Dioxide BUN Creatinine Glucose POC Glucose 160 H 145 H 135 H Hemoglobin A1c Lactic Acid Calcium Phosphorus Magnesium Iron TIBC AST ALT Troponin T C-Reactive Protein Total Protein Albumin Triglycerides LDL Cholesterol Direct HDL Cholesterol Urine pH Urine WBC (Auto) Vancomycin Trough Salicylates Acetaminophen % CD3 Cells % CD19 Cells Absolute CD19 Count Miscellaneous Test Crossmatch 09/14/18 09/14/18 09/14/18 03:56 04:55 04:55 WBC RBC 2.28 L Hgb 7.1 L Hct 21.4 L RDW 18.2 H Plt Count Lymph % (Auto) [facility] % (Auto) Lymph # [facility] # Seg Neutrophils % 76.4 H Seg Neuts % (Manual) Lymphocytes % (Manual) Nucleated RBC % Seg Neutrophils # Seg Neutrophils # Man Lymphocytes # (Manual) D-Dimer POC ABG pH 7.503 H POC ABG pCO2 49.1 H POC ABG pO2 79 L VBG pH Sodium Potassium Chloride 97.7 L Carbon Dioxide 35 H BUN 32 H Creatinine 0.6 L Glucose 114 H POC Glucose Hemoglobin A1c Lactic Acid Calcium Phosphorus Magnesium Iron TIBC AST 60 H ALT 88 H Troponin T C-Reactive Protein Total Protein 5.6 L Albumin 2.2 L Triglycerides LDL Cholesterol Direct HDL Cholesterol Urine pH Urine WBC (Auto) Vancomycin Trough Salicylates Acetaminophen % CD3 Cells % CD19 Cells Absolute CD19 Count Miscellaneous Test Crossmatch 09/14/18 09/14/18 09/14/18 05:14 12:00 12:27 WBC RBC Hgb Hct RDW Plt Count Lymph % (Auto) [place] % (Auto) Lymph # [place] # Seg Neutrophils % Seg Neuts % (Manual) Lymphocytes % (Manual) Nucleated RBC % Seg Neutrophils # Seg Neutrophils # Man Lymphocytes # (Manual) D-Dimer POC ABG pH POC ABG pCO2 POC ABG pO2 VBG pH Sodium Potassium Chloride Carbon Dioxide BUN Creatinine Glucose POC Glucose 115 H 125 H Hemoglobin A1c Lactic Acid Calcium Phosphorus Magnesium Iron TIBC AST ALT Troponin T C-Reactive Protein Total Protein Albumin Triglycerides LDL Cholesterol Direct HDL Cholesterol Urine pH Urine WBC (Auto) Vancomycin Trough Salicylates Acetaminophen % CD3 Cells % CD19 Cells Absolute CD19 Count Miscellaneous Test Crossmatch See Detail 09/14/18 09/15/18 09/15/18 17:54 03:49 04:10 WBC RBC 2.46 L Hgb 7.7 L Hct 23.0 L RDW 18.6 H Plt Count Lymph % (Auto) [place] % (Auto) Lymph # 1.[address] [place] # Seg Neutrophils % 74.2 H Seg Neuts % (Manual) Lymphocytes % (Manual) Nucleated RBC % Seg Neutrophils # Seg Neutrophils # Man Lymphocytes # (Manual) D-Dimer POC ABG pH POC ABG pCO2 58.2 H POC ABG pO2 VBG pH Sodium Potassium Chloride Carbon Dioxide BUN Creatinine Glucose POC Glucose 138 H Hemoglobin A1c Lactic Acid Calcium Phosphorus Magnesium Iron TIBC AST ALT Troponin T C-Reactive Protein Total Protein Albumin Triglycerides LDL Cholesterol Direct HDL Cholesterol Urine pH Urine WBC (Auto) Vancomycin Trough Salicylates Acetaminophen % CD3 Cells % CD19 Cells Absolute CD19 Count Miscellaneous Test Crossmatch 09/15/18 09/15/18 09/15/18 04:10 11:36 11:36 WBC RBC Hgb Hct RDW Plt Count Lymph % (Auto) [place] % (Auto) Lymph # [place] # Seg Neutrophils % Seg Neuts % (Manual) Lymphocytes % (Manual) Nucleated RBC % Seg Neutrophils # Seg Neutrophils # Man Lymphocytes # (Manual) D-Dimer POC ABG pH POC ABG pCO2 53.5 H POC ABG pO2 67 L VBG pH Sodium Potassium Chloride Carbon Dioxide 35 H BUN 21 H Creatinine Glucose POC Glucose 108 H Hemoglobin A1c Lactic Acid Calcium 7.9 L Phosphorus Magnesium Iron TIBC AST ALT Troponin T C-Reactive Protein Total Protein Albumin Triglycerides LDL Cholesterol Direct HDL Cholesterol Urine pH Urine WBC (Auto) Vancomycin Trough Salicylates Acetaminophen % CD3 Cells % CD19 Cells Absolute CD19 Count Miscellaneous Test Crossmatch 09/16/18 09/16/18 09/16/18 01:16 04:25 11:30 WBC RBC 2.77 L Hgb 8.5 L Hct 25.6 L RDW 17.9 H Plt Count Lymph % (Auto) [place] % (Auto) Lymph # [place] # Seg Neutrophils % Seg Neuts % (Manual) Lymphocytes % (Manual) Nucleated RBC % Seg Neutrophils # Seg Neutrophils # Man Lymphocytes # (Manual) D-Dimer POC ABG pH 7.489 H POC ABG pCO2 47.6 H POC ABG pO2 62 L VBG pH Sodium Potassium Chloride Carbon Dioxide BUN Creatinine Glucose POC Glucose 108 H Hemoglobin A1c Lactic Acid Calcium Phosphorus Magnesium Iron TIBC AST ALT Troponin T C-Reactive Protein Total Protein Albumin Triglycerides LDL Cholesterol Direct HDL Cholesterol Urine pH Urine WBC (Auto) Vancomycin Trough Salicylates Acetaminophen % CD3 Cells % CD19 Cells Absolute CD19 Count Miscellaneous Test Crossmatch 09/16/18 09/16/18 09/17/18 11:30 23:07 04:22 WBC RBC Hgb Hct RDW Plt Count Lymph % (Auto) [place] % (Auto) Lymph # [place] # Seg Neutrophils % Seg Neuts % (Manual) Lymphocytes % (Manual) Nucleated RBC % Seg Neutrophils # Seg Neutrophils # Man Lymphocytes # (Manual) D-Dimer POC ABG pH 7.576 H POC ABG pCO2 POC ABG pO2 58 L VBG pH Sodium Potassium 3.2 L Chloride 96.6 L Carbon Dioxide 34 H BUN Creatinine Glucose 128 H POC Glucose 147 H Hemoglobin A1c Lactic Acid Calcium Phosphorus Magnesium Iron TIBC AST ALT Troponin T C-Reactive Protein Total Protein Albumin Triglycerides LDL Cholesterol Direct HDL Cholesterol Urine pH Urine WBC (Auto) Vancomycin Trough Salicylates Acetaminophen % CD3 Cells % CD19 Cells Absolute CD19 Count Miscellaneous Test Crossmatch 09/17/18 09/17/18 09/17/18 05:50 10:15 14:59 WBC RBC Hgb Hct RDW Plt Count Lymph % (Auto) [place] % (Auto) Lymph # [place] # Seg Neutrophils % Seg Neuts % (Manual) Lymphocytes % (Manual) Nucleated RBC % Seg Neutrophils # Seg Neutrophils # Man Lymphocytes # (Manual) D-Dimer POC ABG pH POC ABG pCO2 POC ABG pO2 VBG pH Sodium Potassium 2.6 L* Chloride 96.3 L Carbon Dioxide 33 H BUN Creatinine Glucose 151 H POC Glucose 138 H 151 H Hemoglobin A1c Lactic Acid Calcium Phosphorus Magnesium Iron TIBC AST ALT Troponin T C-Reactive Protein Total Protein Albumin Triglycerides LDL Cholesterol Direct HDL Cholesterol Urine pH Urine WBC (Auto) Vancomycin Trough Salicylates Acetaminophen % CD3 Cells % CD19 Cells Absolute CD19 Count Miscellaneous Test Crossmatch 09/17/18 09/17/18 09/18/18 17:51 Unknown 00:11 WBC RBC Hgb Hct RDW Plt Count Lymph % (Auto) [place] % (Auto) Lymph # [place] # Seg Neutrophils % Seg Neuts % (Manual) Lymphocytes % (Manual) Nucleated RBC % Seg Neutrophils # Seg Neutrophils # Man Lymphocytes # (Manual) D-Dimer POC ABG pH POC ABG pCO2 POC ABG pO2 VBG pH Sodium Potassium 2.7 L* Chloride 97.5 L Carbon Dioxide 32 H BUN Creatinine Glucose 142 H POC Glucose 149 H 128 H Hemoglobin A1c Lactic Acid Calcium Phosphorus Magnesium Iron TIBC AST ALT Troponin T C-Reactive Protein Total Protein Albumin Triglycerides LDL Cholesterol Direct HDL Cholesterol Urine pH Urine WBC (Auto) Vancomycin Trough Salicylates Acetaminophen % CD3 Cells % CD19 Cells Absolute CD19 Count Miscellaneous Test Crossmatch 09/18/18 09/18/18 09/18/18 04:20 04:20 04:28 WBC RBC 2.94 L Hgb 9.0 L Hct 27.2 L RDW 17.7 H Plt Count Lymph % (Auto) [place] % (Auto) 12.1 H Lymph # 1.[address] # Seg Neutrophils % 70.2 H Seg Neuts % (Manual) Lymphocytes % (Manual) Nucleated RBC % Seg Neutrophils # Seg Neutrophils # Man Lymphocytes # (Manual) D-Dimer POC ABG pH 7.563 H POC ABG pCO2 POC ABG pO2 VBG pH Sodium Potassium 3.0 L Chloride Carbon Dioxide 33 H BUN Creatinine Glucose 133 H POC Glucose Hemoglobin A1c Lactic Acid Calcium Phosphorus Magnesium Iron TIBC AST ALT Troponin T C-Reactive Protein Total Protein Albumin Triglycerides LDL Cholesterol Direct HDL Cholesterol Urine pH Urine WBC (Auto) Vancomycin Trough Salicylates Acetaminophen % CD3 Cells % CD19 Cells Absolute CD19 Count Miscellaneous Test Crossmatch 09/18/18 09/18/18 09/19/18 06:19 14:45 00:13 WBC RBC Hgb Hct RDW Plt Count Lymph % (Auto) [place] % (Auto) Lymph # [place] # Seg Neutrophils % Seg Neuts % (Manual) Lymphocytes % (Manual) Nucleated RBC % Seg Neutrophils # Seg Neutrophils # Man Lymphocytes # (Manual) D-Dimer POC ABG pH POC ABG pCO2 POC ABG pO2 VBG pH Sodium Potassium Chloride Carbon Dioxide BUN Creatinine Glucose POC Glucose 140 H 164 H 111 H Hemoglobin A1c Lactic Acid Calcium Phosphorus Magnesium Iron TIBC AST ALT Troponin T C-Reactive Protein Total Protein Albumin Triglycerides LDL Cholesterol Direct HDL Cholesterol Urine pH Urine WBC (Auto) Vancomycin Trough Salicylates Acetaminophen % CD3 Cells % CD19 Cells Absolute CD19 Count Miscellaneous Test Crossmatch 09/19/18 09/19/18 09/19/18 03:38 05:08 05:20 WBC RBC Hgb Hct RDW Plt Count Lymph % (Auto) [place] % (Auto) Lymph # [place] # Seg Neutrophils % Seg Neuts % (Manual) Lymphocytes % (Manual) Nucleated RBC % Seg Neutrophils # Seg Neutrophils # Man Lymphocytes # (Manual) D-Dimer POC ABG pH 7.502 H POC ABG pCO2 34.6 L POC ABG pO2 73 L VBG pH Sodium Potassium 2.7 L* Chloride Carbon Dioxide BUN Creatinine 0.6 L Glucose 119 H POC Glucose 128 H Hemoglobin A1c Lactic Acid Calcium Phosphorus Magnesium Iron TIBC AST ALT Troponin T C-Reactive Protein Total Protein Albumin Triglycerides LDL Cholesterol Direct HDL Cholesterol Urine pH Urine WBC (Auto) Vancomycin Trough Salicylates Acetaminophen % CD3 Cells % CD19 Cells Absolute CD19 Count Miscellaneous Test Crossmatch 09/20/18 09/20/18 09/20/18 04:20 04:20 05:15 WBC RBC 2.89 L Hgb 9.1 L Hct 27.1 L RDW 17.1 H Plt Count Lymph % (Auto) 12.[address] % (Auto) 10.7 H Lymph # 1.[address] [place] # 0.9 H Seg Neutrophils % 76.1 H Seg Neuts % (Manual) Lymphocytes % (Manual) Nucleated RBC % Seg Neutrophils # Seg Neutrophils # Man Lymphocytes # (Manual) D-Dimer POC ABG pH POC ABG pCO2 33.6 L POC ABG pO2 56 L VBG pH Sodium 136 L Potassium 2.9 L* Chloride Carbon Dioxide BUN Creatinine Glucose 116 H POC Glucose Hemoglobin A1c Lactic Acid Calcium Phosphorus Magnesium Iron TIBC AST ALT Troponin T C-Reactive Protein Total Protein Albumin Triglycerides LDL Cholesterol Direct HDL Cholesterol Urine pH Urine WBC (Auto) Vancomycin Trough Salicylates Acetaminophen % CD3 Cells % CD19 Cells Absolute CD19 Count Miscellaneous Test Crossmatch 09/20/18 09/20/18 09/20/18 11:26 16:10 23:50 WBC RBC Hgb Hct RDW Plt Count Lymph % (Auto) [facility] % (Auto) Lymph # [place] # Seg Neutrophils % Seg Neuts % (Manual) Lymphocytes % (Manual) Nucleated RBC % Seg Neutrophils # Seg Neutrophils # Man Lymphocytes # (Manual) D-Dimer POC ABG pH POC ABG pCO2 POC ABG pO2 VBG pH Sodium Potassium Chloride Carbon Dioxide BUN Creatinine Glucose POC Glucose 163 H 119 H Hemoglobin A1c Lactic Acid Calcium Phosphorus Magnesium Iron TIBC AST ALT Troponin T C-Reactive Protein Total Protein Albumin Triglycerides LDL Cholesterol Direct HDL Cholesterol Urine pH 9.0 H Urine WBC (Auto) Vancomycin Trough Salicylates Acetaminophen % CD3 Cells % CD19 Cells Absolute CD19 Count Miscellaneous Test Crossmatch 09/21/18 09/21/18 09/21/18 04:35 04:35 11:30 WBC RBC 2.67 L Hgb 8.3 L Hct 25.1 L RDW 17.4 H Plt Count Lymph % (Auto) [place] % (Auto) 10.0 H Lymph # [facility] # Seg Neutrophils % Seg Neuts % (Manual) Lymphocytes % (Manual) Nucleated RBC % Seg Neutrophils # Seg Neutrophils # Man Lymphocytes # (Manual) D-Dimer POC ABG pH POC ABG pCO2 POC ABG pO2 VBG pH Sodium Potassium Chloride Carbon Dioxide 21 L BUN 18 H Creatinine Glucose 106 H POC Glucose 110 H Hemoglobin A1c Lactic Acid Calcium Phosphorus Magnesium Iron TIBC AST ALT Troponin T C-Reactive Protein Total Protein Albumin Triglycerides LDL Cholesterol Direct HDL Cholesterol Urine pH Urine WBC (Auto) Vancomycin Trough Salicylates Acetaminophen % CD3 Cells % CD19 Cells Absolute CD19 Count Miscellaneous Test Crossmatch 09/22/18 09/22/18 09/22/18 04:11 12:30 17:54 WBC RBC Hgb Hct RDW Plt Count Lymph % (Auto) [facility] % (Auto) Lymph # [facility] # Seg Neutrophils % Seg Neuts % (Manual) Lymphocytes % (Manual) Nucleated RBC % Seg Neutrophils # Seg Neutrophils # Man Lymphocytes # (Manual) D-Dimer POC ABG pH POC ABG pCO2 POC ABG pO2 VBG pH Sodium Potassium Chloride Carbon Dioxide BUN 21 H Creatinine 0.6 L Glucose POC Glucose 120 H 122 H Hemoglobin A1c Lactic Acid Calcium Phosphorus Magnesium Iron TIBC AST ALT Troponin T C-Reactive Protein Total Protein Albumin Triglycerides LDL Cholesterol Direct HDL Cholesterol Urine pH Urine WBC (Auto) Vancomycin Trough Salicylates Acetaminophen % CD3 Cells % CD19 Cells Absolute CD19 Count Miscellaneous Test Crossmatch 09/23/18 09/23/18 09/23/18 05:29 12:01 18:23 WBC RBC Hgb Hct RDW Plt Count Lymph % (Auto) [facility] % (Auto) Lymph # [facility] # Seg Neutrophils % Seg Neuts % (Manual) Lymphocytes % (Manual) Nucleated RBC % Seg Neutrophils # Seg Neutrophils # Man Lymphocytes # (Manual) D-Dimer POC ABG pH POC ABG pCO2 POC ABG pO2 VBG pH Sodium Potassium Chloride Carbon Dioxide BUN Creatinine Glucose POC Glucose 163 H 144 H 138 H Hemoglobin A1c Lactic Acid Calcium Phosphorus Magnesium Iron TIBC AST ALT Troponin T C-Reactive Protein Total Protein Albumin Triglycerides LDL Cholesterol Direct HDL Cholesterol Urine pH Urine WBC (Auto) Vancomycin Trough Salicylates Acetaminophen % CD3 Cells % CD19 Cells Absolute CD19 Count Miscellaneous Test Crossmatch 09/23/18 09/24/18 09/24/18 23:53 03:41 03:41 WBC RBC 3.00 L Hgb 9.2 L Hct 28.1 L RDW 16.7 H Plt Count 105 L Lymph % (Auto) [facility] % (Auto) 12.3 H Lymph # [facility] # Seg Neutrophils % Seg Neuts % (Manual) Lymphocytes % (Manual) Nucleated RBC % Seg Neutrophils # Seg Neutrophils # Man Lymphocytes # (Manual) D-Dimer POC ABG pH POC ABG pCO2 POC ABG pO2 VBG pH Sodium Potassium Chloride Carbon Dioxide BUN 21 H Creatinine 0.5 L Glucose 109 H POC Glucose 122 H Hemoglobin A1c Lactic Acid Calcium Phosphorus Magnesium Iron TIBC AST ALT Troponin T C-Reactive Protein Total Protein Albumin Triglycerides LDL Cholesterol Direct HDL Cholesterol Urine pH Urine WBC (Auto) Vancomycin Trough Salicylates Acetaminophen % CD3 Cells % CD19 Cells Absolute CD19 Count Miscellaneous Test Crossmatch 09/24/18 09/24/18 09/24/18 05:43 11:38 17:41 WBC RBC Hgb Hct RDW Plt Count Lymph % (Auto) [facility] % (Auto) Lymph # [facility] # Seg Neutrophils % Seg Neuts % (Manual) Lymphocytes % (Manual) Nucleated RBC % Seg Neutrophils # Seg Neutrophils # Man Lymphocytes # (Manual) D-Dimer POC ABG pH POC ABG pCO2 POC ABG pO2 VBG pH Sodium Potassium Chloride Carbon Dioxide BUN Creatinine Glucose POC Glucose 110 H 132 H 122 H Hemoglobin A1c Lactic Acid Calcium Phosphorus Magnesium Iron TIBC AST ALT Troponin T C-Reactive Protein Total Protein Albumin Triglycerides LDL Cholesterol Direct HDL Cholesterol Urine pH Urine WBC (Auto) Vancomycin Trough Salicylates Acetaminophen % CD3 Cells % CD19 Cells Absolute CD19 Count Miscellaneous Test Crossmatch 09/24/18 09/24/18 09/25/18 23:02 23:24 04:17 WBC RBC 3.07 L Hgb 9.5 L Hct 28.8 L RDW 16.6 H Plt Count Lymph % (Auto) [facility] % (Auto) Lymph # [facility] # Seg Neutrophils % Seg Neuts % (Manual) Lymphocytes % (Manual) Nucleated RBC % Seg Neutrophils # Seg Neutrophils # Man Lymphocytes # (Manual) D-Dimer POC ABG pH 7.516 H POC ABG pCO2 POC ABG pO2 VBG pH Sodium Potassium Chloride Carbon Dioxide BUN Creatinine Glucose POC Glucose 113 H Hemoglobin A1c Lactic Acid Calcium Phosphorus Magnesium Iron TIBC AST ALT Troponin T C-Reactive Protein Total Protein Albumin Triglycerides LDL Cholesterol Direct HDL Cholesterol Urine pH Urine WBC (Auto) Vancomycin Trough Salicylates Acetaminophen % CD3 Cells % CD19 Cells Absolute CD19 Count Miscellaneous Test Crossmatch 09/25/18 09/25/18 09/25/18 04:17 12:18 17:33 WBC RBC Hgb Hct RDW Plt Count Lymph % (Auto) [facility] % (Auto) Lymph # [facility] # Seg Neutrophils % Seg Neuts % (Manual) Lymphocytes % (Manual) Nucleated RBC % Seg Neutrophils # Seg Neutrophils # Man Lymphocytes # (Manual) D-Dimer POC ABG pH POC ABG pCO2 POC ABG pO2 VBG pH Sodium Potassium Chloride Carbon Dioxide BUN 24 H Creatinine 0.6 L Glucose 121 H POC Glucose 140 H 121 H Hemoglobin A1c Lactic Acid Calcium Phosphorus Magnesium Iron TIBC AST ALT Troponin T C-Reactive Protein Total Protein Albumin Triglycerides LDL Cholesterol Direct HDL Cholesterol Urine pH Urine WBC (Auto) Vancomycin Trough Salicylates Acetaminophen % CD3 Cells % CD19 Cells Absolute CD19 Count Miscellaneous Test Crossmatch 09/25/18 09/26/18 09/26/18 23:57 04:02 04:02 WBC RBC 2.98 L Hgb 9.3 L Hct 27.7 L RDW 16.6 H Plt Count Lymph % (Auto) [facility] % (Auto) Lymph # [facility] # Seg Neutrophils % Seg Neuts % (Manual) Lymphocytes % (Manual) Nucleated RBC % Seg Neutrophils # Seg Neutrophils # Man Lymphocytes # (Manual) D-Dimer POC ABG pH POC ABG pCO2 POC ABG pO2 VBG pH Sodium Potassium Chloride Carbon Dioxide BUN 29 H Creatinine 0.5 L Glucose 141 H POC Glucose 110 H Hemoglobin A1c Lactic Acid Calcium Phosphorus Magnesium Iron TIBC AST ALT Troponin T C-Reactive Protein Total Protein Albumin Triglycerides LDL Cholesterol Direct HDL Cholesterol Urine pH Urine WBC (Auto) Vancomycin Trough Salicylates Acetaminophen % CD3 Cells % CD19 Cells Absolute CD19 Count Miscellaneous Test Crossmatch 09/26/18 09/26/18 09/26/18 05:04 11:40 18:42 WBC RBC Hgb Hct RDW Plt Count Lymph % (Auto) [facility] % (Auto) Lymph # [place] # Seg Neutrophils % Seg Neuts % (Manual) Lymphocytes % (Manual) Nucleated RBC % Seg Neutrophils # Seg Neutrophils # Man Lymphocytes # (Manual) D-Dimer POC ABG pH POC ABG pCO2 POC ABG pO2 VBG pH Sodium Potassium Chloride Carbon Dioxide BUN Creatinine Glucose POC Glucose 125 H 151 H 117 H Hemoglobin A1c Lactic Acid Calcium Phosphorus Magnesium Iron TIBC AST ALT Troponin T C-Reactive Protein Total Protein Albumin Triglycerides LDL Cholesterol Direct HDL Cholesterol Urine pH Urine WBC (Auto) Vancomycin Trough Salicylates Acetaminophen % CD3 Cells % CD19 Cells Absolute CD19 Count Miscellaneous Test Crossmatch 09/27/18 09/27/18 09/27/18 00:36 06:12 06:12 WBC RBC 3.23 L Hgb 10.0 L Hct RDW 16.4 H Plt Count Lymph % (Auto) [facility] % (Auto) Lymph # [facility] # Seg Neutrophils % Seg Neuts % (Manual) Lymphocytes % (Manual) Nucleated RBC % Seg Neutrophils # Seg Neutrophils # Man Lymphocytes # (Manual) D-Dimer POC ABG pH POC ABG pCO2 POC ABG pO2 VBG pH Sodium Potassium Chloride Carbon Dioxide BUN 28 H Creatinine 0.6 L Glucose 121 H POC Glucose 144 H Hemoglobin A1c Lactic Acid Calcium Phosphorus Magnesium Iron TIBC AST ALT Troponin T C-Reactive Protein Total Protein Albumin Triglycerides LDL Cholesterol Direct HDL Cholesterol Urine pH Urine WBC (Auto) Vancomycin Trough Salicylates Acetaminophen % CD3 Cells % CD19 Cells Absolute CD19 Count Miscellaneous Test Crossmatch 09/27/18 06:21 WBC RBC Hgb Hct RDW Plt Count Lymph % (Auto) [facility] % (Auto) Lymph # [facility] # Seg Neutrophils % Seg Neuts % (Manual) Lymphocytes % (Manual) Nucleated RBC % Seg Neutrophils # Seg Neutrophils # Man Lymphocytes # (Manual) D-Dimer POC ABG pH POC ABG pCO2 POC ABG pO2 VBG pH Sodium Potassium Chloride Carbon Dioxide BUN Creatinine Glucose POC Glucose 126 H Hemoglobin A1c Lactic Acid Calcium Phosphorus Magnesium Iron TIBC AST ALT Troponin T C-Reactive Protein Total Protein Albumin Triglycerides LDL Cholesterol Direct HDL Cholesterol Urine pH Urine WBC (Auto) Vancomycin Trough Salicylates Acetaminophen % CD3 Cells % CD19 Cells Absolute CD19 Count Miscellaneous Test Crossmatch Chest x-ray: report reviewed (Cardiomegaly,mild pulmonary edema,small pleural effusions.), image reviewed Allied health notes reviewed: nursing
[2018-09-29] MEDS ORDERED: ELIQUIS PO SCH (10:00)
== END 2018-09-27 15:28 | DRG 4 ==
LOC: ED 16:29 → CC1 19:13 → 4A 09-26 16:11
PROVIDERS: ADMIT Internal Medicine; ATTEND Internal Medicine
PROC: 02HV33Z Insertion of Infusion Device into Superior Vena Cava, Percutaneous Approach (ICD-10-PCS; 2018-08-15)
PROC: B548ZZA Ultrasonography of Superior Vena Cava, Guidance (ICD-10-PCS; 2018-08-15)
PROC: 4A033R1 Measurement of Arterial Saturation, Peripheral, Percutaneous Approach (ICD-10-PCS; 2018-08-15)
PROC: 5A1955Z Respiratory Ventilation, Greater than 96 Consecutive Hours (ICD-10-PCS; 2018-08-15)
PROC: 0BH17EZ Insertion of Endotracheal Airway into Trachea, Via Natural or Artificial Opening (ICD-10-PCS; 2018-08-15)
PROC: 30233N1 Transfusion of Nonautologous Red Blood Cells into Peripheral Vein, Percutaneous Approach (ICD-10-PCS; 2018-08-25)
PROC: 02HV33Z Insertion of Infusion Device into Superior Vena Cava, Percutaneous Approach (ICD-10-PCS; 2018-08-26)
PROC: 5A09357 Assistance with Respiratory Ventilation, Less than 24 Consecutive Hours, Continuous Positive Airway Pressure (ICD-10-PCS; 2018-08-29)
PROC: 5A09457 Assistance with Respiratory Ventilation, 24-96 Consecutive Hours, Continuous Positive Airway Pressure (ICD-10-PCS; 2018-09-01)
PROC: 5A1955Z Respiratory Ventilation, Greater than 96 Consecutive Hours (ICD-10-PCS; principal; 2018-09-02)
PROC: 0BH17EZ Insertion of Endotracheal Airway into Trachea, Via Natural or Artificial Opening (ICD-10-PCS; 2018-09-02)
PROC: 0BJ08ZZ Inspection of Tracheobronchial Tree, Via Natural or Artificial Opening Endoscopic (ICD-10-PCS; 2018-09-02)
PROC: 0B113F4 Bypass Trachea to Cutaneous with Tracheostomy Device, Percutaneous Approach (ICD-10-PCS; 2018-09-14)
PROC: 0BJ08ZZ Inspection of Tracheobronchial Tree, Via Natural or Artificial Opening Endoscopic (ICD-10-PCS; 2018-09-14)
PROC: 05HY33Z Insertion of Infusion Device into Upper Vein, Percutaneous Approach (ICD-10-PCS; 2018-09-20)
PROC: 0DH63UZ Insertion of Feeding Device into Stomach, Percutaneous Approach (ICD-10-PCS; 2018-09-21)
DX: A41.9 Sepsis, unspecified organism (principal); J69.0 Pneumonitis due to inhalation of food and vomit; J96.01 Acute respiratory failure with hypoxia; J96.02 Acute respiratory failure with hypercapnia; E43 Unspecified severe protein-calorie malnutrition; N17.0 Acute kidney failure with tubular necrosis; I50.21 Acute systolic (congestive) heart failure; R65.21 Severe sepsis with septic shock; K72.00 Acute and subacute hepatic failure without coma; I21.4 Non-ST elevation (NSTEMI) myocardial infarction; G92 Toxic encephalopathy; J44.0 Chronic obstructive pulmonary disease with (acute) lower respiratory infection; E87.0 Hyperosmolality and hypernatremia; I82.443 Acute embolism and thrombosis of tibial vein, bilateral; B49 Unspecified mycosis; I42.0 Dilated cardiomyopathy; M19.90 Unspecified osteoarthritis, unspecified site; G89.4 Chronic pain syndrome; K52.9 Noninfective gastroenteritis and colitis, unspecified; D64.9 Anemia, unspecified; R13.10 Dysphagia, unspecified; E87.6 Hypokalemia; D69.6 Thrombocytopenia, unspecified; K44.9 Diaphragmatic hernia without obstruction or gangrene; E83.42 Hypomagnesemia; I11.0 Hypertensive heart disease with heart failure; R74.0 Nonspecific elevation of levels of transaminase and lactic acid dehydrogenase [LDH]; E86.0 Dehydration; F32.9 Major depressive disorder, single episode, unspecified; I44.7 Left bundle-branch block, unspecified; B37.9 Candidiasis, unspecified; J32.0 Chronic maxillary sinusitis; G62.9 Polyneuropathy, unspecified; Z79.01 Long term (current) use of anticoagulants; Z68.32 Body mass index [BMI] 32.0-32.9, adult; Z82.49 Family history of ischemic heart disease and other diseases of the circulatory system
CPT/HCPCS: 36415; 36600; 49440; 70450; 71045; 71275; 74018; 74176; 74177; 76700; 76770; 80048; 80053; 80061; 80076; 80202; 80307; 80320; 81001; 82024; 82140; 82270; 82533; 82607; 82728; 82747; 82803; 82805; 82962; 83036; 83550; 83735; 84100; 84478; 84484; 85007; 85014; 85018; 85025; 85027; 85379; 85610; 86022; 86140; 86403; 86850; 86900; 86901; 86920; 87040; 87070; 87076; 87086; 87102; 87103; 87106; 87116; 87186; 87205; 87324; 87493; 87806; 93005; 93010; 93306; 93970; 94002; 94003; 94640; 94660; 94760; 96374; 96375; G0378; C1751; C1769; G0480; J0287; J0360; J0456; J0461; J0690; J0692; J0696; J1120; J1170; J1200; J1205; J1450; J1610; J1650; J1652; J1815; J1940; J2060; J2185; J2248; J2250; J2270; J2405; J2543; J2704; J2765; J2916; J2920; J3010; J3370; J3475; J3480; J3490; J7030; J7040; J7050; J7060; J7070; J7131; P9016; Q9967